=== PATIENT | female | born 1965 | race Caucasian/White ===

== ENCOUNTER 2016-11-25 19:32 | Inpatient (IN) | payer MEDICARE, OTHER ==
[2016-11-25 19:54] VITALS: BMI 31.1
--- NOTE | 2016-11-25 20:17 | PDOC ---
History of Present Illness <JermaineroderickMarnie - Last Filed: 11/25/16 20:45> - General History Source: Patient <Vijay Kemp - Last Filed: 11/25/16 20:55> - History of Present Illness Initial Comments: 11/25/16 20:56 The patient is a 50 year old female with a PMH of AFIB, HTN, hyperlipidemia, asthma, COPD, o2 dependent and uterine CA presents to the ED BIBA from [facility] s/p witness mechanical fall yesterday. The patient reports falling at 7:30pm yesterday during her therapy session and sustained injuries to her right hip. Patient now has complaints of right hip pain and right ankle pain. X-ray was done at the half-way which confirms a right hip fracture. Patient denies LOC, head trauma and back trauma. Patient denies chest pain, SOB, fever, chills, cough, abdominal pain, nausea, vomiting, diarrhea and urinary distress. PCP: Dr. Cornelio Salas <Gabriela Simmons - Last Filed: 11/26/16 02:08> - General Stated Complaint: DISPLACED FRACTURE Time Seen by Provider: 11/25/16 20:17 Past History <Amyluis fernandoMarcus vaughnta - Last Filed: 11/25/16 20:45> - Past Medical History Anemia: Yes Asthma: Yes (COPD) Cancer: Yes (UTERINE) Cardiac Disorders: Yes (A-fib) CVA: No COPD: Yes CHF: No Dementia: No Diabetes: Yes GI Disorders: Yes (colitis, SB resection,) Disorders: Yes (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) HTN: Yes Hypercholesterolemia: Yes Liver Disease: No Suicide Attempt (Hx): No Seizures: Yes (5 yrs ago had a seizure ( zofran and reglan given together as per patient) Thyroid Disease: No - Surgical History Abdominal Surgery: Yes (BOWEL RESECTION) Appendectomy: Yes (removed 1998) Cardiac Surgery: No Cholecystectomy: No Lung Surgery: No Neurologic Surgery: No Orthopedic Surgery: Yes (Back Sx T7,6) - Immunization History Td Vaccination: Yes TDAP Vaccination: Yes Immunization Up to Date: Yes - Psycho/Social/Smoking Cessation Hx Anxiety: No Suicidal Ideation: No Smoking Status: No Smoking History: Unknown if ever smoked Have you smoked in the past 12 months: No Number of Cigarettes Smoked Daily: 3 If you are a former smoker, when did you quit?: 10/11/14 Information on smoking cessation initiated: No 'Breaking Loose' booklet given: 03/12/15 Hx Alcohol Use: No Drug/Substance Use Hx: No Substance Use Type: None Hx Substance Use Treatment: No <OzzyVijay hernadez - Last Filed: 11/25/16 20:55> <GatohannahGabriela pineda - Last Filed: 11/26/16 02:08> - Past Medical History Allergies/Adverse Reactions: Allergies Allergy/AdvReac Type Severity Reaction Status Date / Time oxycodone [Oxycodone] Allergy Severe Nausea Verified 11/25/16 19:58 oxycodone HCl [From Percocet] Allergy Severe Nausea Verified 11/25/16 19:58 aspirin Allergy Mild Verified 11/25/16 19:58 blueberry [Blueberry] Allergy Mild Swelling Verified 11/25/16 19:58 promethazine HCl Allergy Mild Verified 11/25/16 19:58 [From Phenergan] promethazine Allergy Verified 11/25/16 19:58 Home Medications: Ambulatory Orders Acetaminophen [Tylenol .Regular Strength -] 650 mg PO Q6H PRN #0 tablet Levothyroxine [Synthroid -] 25 mcg PO DAILY@0700 tablet 06/05/16 Albuterol 2.5/Ipratropium 0.5 [Duoneb -] 1 amp NEB Q4HPO amp 09/17/16 Alprazolam [Xanax] 0.25 mg PO BID tablet MDD 2 09/17/16 Diltiazem [Cardizem -] 60 mg PO Q6HPO tablet 09/17/16 Magnesium Oxide [Mag-Ox -] 400 mg PO BID tablet 09/17/16 Naph,Mb-Db/K pH,Mbdb [PHOS-NaK PACKET -] 1 packet PO BID pow 09/17/16 Albuterol Sulfate Inhaler - [Ventolin HFA Inhaler -] 2 puff IH Q4H PRN #0 inhaler 09/23/16 Baclofen [Lioresal -] 20 mg PO TID 10/01/16 Docusate Sodium [Colace -] 300 mg PO HS 10/01/16 Budesonide/Formeterol Fumarate [SYMBICORT 160/4.5mcg -] 2 inh PO BID 11/01/16 Diphenhydramine [Benadryl 12.5 MG/5 ML Oral Solution -] 25 mg PO Q4H PRN Doxepin HCl [Sinequan -] 25 mg PO HS 11/01/16 Eletriptan Hydrobromide [Relpax -] 40 mg PO PRN 11/01/16 Gabapentin [Neurontin -] 300 mg PO TID 11/01/16 Metoprolol Tartrate [Lopressor -] 25 mg PO TID 11/01/16 Omeprazole 40 mg PO BID 11/01/16 Polyethylene Glycol 3350 [Miralax 119 gm Btl -] 17 gm PO DAILY 11/01/16 Roflumilast [Daliresp] 500 mcg PO DAILY 11/01/16 Sennosides [Senna] 2 tab PO HS 11/01/16 Zolpidem Tartrate [Ambien] 10 mg PO HS PRN MDD 1 11/01/16 Lipase/Protease/Amylase [Eamon Turner 6,000 Units Capsule] 3 cap PO TIDCM capsule. 11/07/16 Insulin Sliding Scale [Novolog Vial Sliding Scale -] 0 units SQ ACHS PRN Doxepin HCl [Sinequan -] 25 mg PO HS capsule 11/20/16 Hydromorphone [Dilaudid -] 2 mg PO Q8H PRN #0 tablet MDD 3 11/20/16 Lactobacillus Acidophilus [Bacid -] 1 tab PO BID tab 11/20/16 Loperamide HCl [Imodium -] 2 mg PO Q8H PRN #0 capsule 11/20/16 Metoclopramide HCl [Reglan -] 10 mg PO TIDAC tablet 11/20/16 Multivitamins [Multivit ([facility] Formulary)] 1 tab PO DAILY tab 11/20/16 Ondansetron [Zofran -] 4 mg PO Q4H PRN #0 tablet 11/20/16 Prednisone [Deltasone -] 60 mg PO DAILY #20 tablet 11/20/16 Zinc Oxide 1 applic TP BID tube 11/20/16 Zolpidem Tartrate [Ambien] 10 mg PO HS PRN #0 tablet MDD 1 11/20/16 Insulin (Levemir) [Levemir Vial] 5 unit SQ DAILY #1 vial 11/21/16 Review of Systems - Review of Systems Able to Perform ROS?: Yes Comments:: 11/25/16 20:44 CONSTITUTIONAL: Absent: fever, chills, diaphoresis, generalized weakness, malaise, loss of appetite HEENT: Absent: rhinorrhea, nasal congestion, throat pain, throat swelling, difficulty swallowing, mouth swelling, ear pain, eye pain, visual Changes CARDIOVASCULAR: Absent: chest pain, syncope, palpitations, irregular heart rate, lightheadedness , peripheral edema RESPIRATORY: Absent: cough, shortness of breath, dyspnea with exertion, orthopnea, wheezing, stridor, hemoptysis GASTROINTESTINAL: Absent: abdominal pain, abdominal distension, nausea, vomiting, diarrhea, constipation, melena, hematochezia GENITOURINARY: Absent: dysuria, frequency, urgency, hesitancy, hematuria, flank pain, genital pain MUSCULOSKELETAL: +Right hip pain SKIN: Absent: rash, itching, pallor NEUROLOGIC: Absent: headache, focal weakness or paresthesias, dizziness, unsteady gait, seizure, mental status changes, bladder or bowel incontinence PSYCHIATRIC: Absent: anxiety, depression, suicidal or homicidal ideation, hallucinations. <Gabriela Simmons - Last Filed: 11/26/16 02:08> *Physical Exam - Vital Signs Last Vital Signs Temp Pulse Resp BP Pulse Ox 98.7 F 75 17 102/68 99 11/25/16 19:48 11/25/16 19:48 11/25/16 19:48 11/25/16 19:48 11/25/16 19:48 <Marnie Dey - Last Filed: 11/25/16 20:45> - Vital Signs Last Vital Signs Temp Pulse Resp BP Pulse Ox 98.7 F 75 17 102/68 99 11/25/16 19:48 11/25/16 19:48 11/25/16 19:48 11/25/16 19:48 11/25/16 19:48 <Vijay Kemp - Last Filed: 11/25/16 20:55> - Vital Signs Last Vital Signs Temp Pulse Resp BP Pulse Ox 98.7 F 75 17 102/68 99 11/25/16 19:48 11/25/16 19:48 11/25/16 19:48 11/25/16 19:48 11/25/16 19:48 - Physical Exam Comments: 11/25/16 20:44 GENERAL: Well developed, well nourished. Awake and alert. Moderate distress. HEENT: Trachyostomy in place, intact clean and dry. Normocephalic, atraumatic. PERRLA, EOMI. No raccoon or palmer sign. No conjunctival pallor. Sclera are non- icteric. Moist mucous membranes. Oropharynx is clear. No hemotympanum. NECK: Supple. Full ROM. No JVD. Carotid pulses 2+ and symmetric, without bruits. No thyromegaly. No lymphadenopathy. CARDIOVASCULAR: Regular rate and rhythm. No murmurs, rubs, or gallops. Distal pulses are 2+ and symmetric. PULMONARY: No evidence of respiratory distress. Lungs clear to auscultation bilaterally. No wheezing, rales or rhonchi. ABDOMINAL: Soft. Non-tender. Non-distended. No rebound or guarding. No organomegaly. Normoactive bowel sounds. MUSCULOSKELETAL Right leg is shortened, and externally rotated. Moderate tenderness on palpation of right hip. EXTREMITIES: No cyanosis. No clubbing. No edema. No calf tenderness. SKIN: Warm and dry. Normal capillary refill. No rashes. No jaundice. NEUROLOGICAL: Alert, awake, appropriate. Cranial nerves 2-12 intact. No ROM secondary to pain of right leg. PSYCHIATRIC: Cooperative. Good eye contact. Appropriate mood and affect <Gabriela Simmons - Last Filed: 11/26/16 02:08> Heart Score/ECG Review - ECG Impressions Comment:: 11/26/16 00:42 NSR @ 77 bpm Normal ECG <Gabriela Simmons - Last Filed: 11/26/16 02:08> ED Treatment Course - LABORATORY CBC & Chemistry Diagram: 11/25/16 21:15 11/25/16 21:15 <Gabriela Simmons - Last Filed: 11/26/16 02:08> Medical Decision Making - Medical Decision Making 11/25/16 20:[address] Cornelio Salas (via answering service) at 20:32 Dr. Salas responded at 20:29 and case was discussed. <Marnie Dey - Last Filed: 11/25/16 20:45> - Medical Decision Making 11/25/16 20:55 Dr. Kemp: The scribe's documentation has been prepared under my direction and personally reviewed by me in its entirery. I confirm that the note above accurately reflects all work, treatment, procedures, and medical decision making performed by me. Patient with right hip fracture will be admit <Vijay Kemp - Last Filed: 11/25/16 20:55> *DC/Admit/Observation/Transfer <Marnie Dey - Last Filed: 11/25/16 20:45> - Discharge Dispostion Admit: Yes <Vijay Kemp - Last Filed: 11/25/16 20:55> - Attestations Scribe Attestion: 11/25/16 20:45 Documentation prepared by Gabriela Simmons, acting as medical laboratory assistant for Vijay Kemp MD/DO. <Gabriela Simmons - Last Filed: 11/26/16 02:08> Diagnosis at time of Disposition: Closed right hip fracture Qualifiers: Encounter type: initial encounter Qualified Code(s): S72.001A - Fracture of unspecified part of neck of right femur, initial encounter for closed fracture - Referrals
[2016-11-25] MEDS ORDERED: HYDROmorphone HCL CARPU-JECT 1 MG/1 ML DISP.SYRIN IVPUSH ONE ×2 (20:21→23:18)
[2016-11-25] MEDS ORDERED: ONDANSETRON 4 MG/2 ML VIAL IVPUSH STA (20:22)
[2016-11-25] MEDS ORDERED: ONDANSETRON 4 MG/2 ML VIAL ONE (20:50)
[2016-11-25] MEDS ORDERED: HYDROmorphone HCL CARPU-JECT 1 MG/1 ML DISP.SYRIN ONE (20:50)
[2016-11-25 21:29] LABS: MCH 25.9 pg (25.7-33.7); MCHC 30.9 g/dl (32.0-36.0); MEAN CELL VOLUME 83.8 fl (80-96); MEAN PLT VOLUME 8.5 fl (7.5-11.1); PLATELET COUNT 383 K/MM3 (134-434); RDW 17.9 % (11.6-15.6); WHITE BLOOD COUNT 15.9 K/mm3 (4.0-10.0)
[2016-11-25 21:49] LABS: INR 0.96 (0.82-1.09); PROTHROMBIN TIME (PATIENT) 10.5 SEC (9.98-11.88)
[2016-11-25] MEDS: SODIUM CHLORIDE 1,000 ML IV SCH (21:54)
[2016-11-25 21:57] LABS: ALBUMIN 2.8 g/dl (3.4-5.0); ALK PHOS 83 U/L (45-117); ANION GAP 9 (8-16); BILIRUBIN,TOTAL 0.1 mg/dL (0.2-1.0); CALCIUM 7.6 mg/dL (8.5-10.1); CO2 27 mmol/L (21-32); CREATININE 0.8 mg/dL (0.55-1.02); GLUCOSE,RANDOM 156 mg/dL (74-106); SGOT/AST 14 U/L (15-37); SGPT/ALT 36 U/L (12-78); TOT PROT 6.1 g/dl (6.4-8.2)
[2016-11-25 22:22] LABS: METAMYELOCYTE 1 % (0-2); OVALOCYTES FEW; PLATELET COMMENT2 NO CLOTTING DETECTED; PLATELET ESTIMATE ADEQUATE (NORMAL)
[2016-11-25 22:23] LABS: ANISOCYTOSIS 1+; HYPOCHROMIA 1+; POLYCHROMASIA FEW
[2016-11-26] MEDS ORDERED: HYDROmorphone HCL CARPU-JECT 1 MG/1 ML DISP.SYRIN ONE ×5 (00:23→19:32)
[2016-11-26] MEDS ORDERED: HYDROmorphone HCL CARPU-JECT 1 MG/1 ML DISP.SYRIN IVPUSH ONE (01:05)
[2016-11-26 01:10] LABS: URINE APPEARANCE CLOUDY; URINE BILIRUBIN NEGATIVE (NEGATIVE); URINE COLOR DKYELLOW; URINE GLUCOSE (UA) NEGATIVE (NEGATIVE); URINE KETONE NEGATIVE (NEGATIVE); URINE NITRITE POSITIVE (NEGATIVE); URINE UROBILINOGEN NEGATIVE E.U./dl (0.2-1.0)
[2016-11-26] MEDS ORDERED: HYDROmorphone HCL CARPU-JECT 2 MG/1 ML DISP.SYRIN ONE (01:13)
[2016-11-26 02:03] LABS: URINE BLOOD 1+ (NEGATIVE); URINE LEUK ESTERASE 3+ (NEGATIVE); URINE PROTEIN 1+ (NEGATIVE)
[2016-11-26] MEDS ORDERED: BACLOFEN 10 MG TABLET (FP) PO ONE (02:06)
[2016-11-26] MEDS ORDERED: DOXEPIN HCL 25 MG CAPSULE PO ONE (02:32)
[2016-11-26 02:35] LABS: URINE BACTERIA MANY /hpf (NONE SEEN); URINE RBC 228 /hpf (0-3); URINE WBC 892 /hpf (3-5)
[2016-11-26] MEDS ORDERED: ACETAMINOPHEN 325 MG TABLET (FP) PO PRN (03:01)
[2016-11-26] MEDS ORDERED: ELETRIPTAN HYDROBROMIDE 40 MG TABLET PO PRN (03:01)
[2016-11-26] MEDS ORDERED: ONDANSETRON 4 MG TABLET PO PRN (03:01)
--- NOTE | 2016-11-26 03:01 | HP ---
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 She was found to have right lateral and medial malleolar fracture. On exam, pt with c/o ankle pain as well as concerned about her nighttime medications that she missed. 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 colitis bipolar depression PAST SURGICAL HISTORY: T6&T7 metastatic tumor resection tracheostomy Social History: Smoking: pt denies Alcohol: pt denies Drugs: pt denies Family History: mother with heart disease/heart surgery father: leukemia Allergies oxycodone [Oxycodone] Allergy (Severe, Verified 11/25/16 19:58) Nausea oxycodone HCl [From Percocet] Allergy (Severe, Verified 11/25/16 19:58) Nausea aspirin Allergy (Mild, Verified 11/25/16 19:58) blueberry [Blueberry] Allergy (Mild, Verified 11/25/16 19:58) Swelling promethazine HCl [From Phenergan] Allergy (Mild, Verified 11/25/16 19:58) promethazine Allergy (Verified 11/25/16 19:58) HOME MEDICATIONS: 3 Medication Instructions Recorded Acetaminophen [Tylenol .Regular 650 mg PO Q6H PRN #0 tablet 06/05/16 Strength -] Levothyroxine [Synthroid -] 25 mcg PO DAILY@0700 tablet 06/05/16 Albuterol 2.5/Ipratropium 0.5 1 amp NEB Q4HPO amp 09/17/16 [Duoneb -] Alprazolam [Xanax] 0.25 mg PO BID tablet MDD 2 09/17/16 Diltiazem [Cardizem -] 60 mg PO Q6HPO tablet 09/17/16 Magnesium Oxide [Mag-Ox -] 400 mg PO BID tablet 09/17/16 Naph,Mb-Db/K pH,Mbdb [PHOS-NaK 1 packet PO BID pow 09/17/16 PACKET -] Albuterol Sulfate Inhaler - 2 puff IH Q4H PRN #0 inhaler 09/23/16 [Ventolin HFA Inhaler -] Baclofen [Lioresal -] 20 mg PO TID 10/01/16 Docusate Sodium [Colace -] 300 mg PO HS 10/01/16 Budesonide/Formeterol Fumarate 2 inh PO BID 11/01/16 [SYMBICORT 160/4.5mcg -] Diphenhydramine [Benadryl 12.5 25 mg PO Q4H PRN 11/01/16 MG/5 ML Oral Solution -] Doxepin HCl [Sinequan -] 25 mg PO HS 11/01/16 Eletriptan Hydrobromide [Relpax -] 40 mg PO PRN 11/01/16 Gabapentin [Neurontin -] 300 mg PO TID 11/01/16 Metoprolol Tartrate [Lopressor -] 25 mg PO TID 11/01/16 Omeprazole 40 mg PO BID 11/01/16 Polyethylene Glycol 3350 [Miralax 17 gm PO DAILY 11/01/16 119 gm Btl -] Roflumilast [Daliresp] 500 mcg PO DAILY 11/01/16 Sennosides [Senna] 2 tab PO HS 11/01/16 Zolpidem Tartrate [Ambien] 10 mg PO HS PRN MDD 1 11/01/16 Lipase/Protease/Amylase [Creon Dr 3 cap PO TIDCM capsule. 11/07/16 6,000 Units Capsule] Insulin Sliding Scale [Novolog 0 units SQ ACHS PRN 11/08/16 Vial Sliding Scale -] Doxepin HCl [Sinequan -] 25 mg PO HS capsule 11/20/16 Hydromorphone [Dilaudid -] 2 mg PO Q8H PRN #0 tablet MDD 3 11/20/16 Lactobacillus Acidophilus [Bacid -] 1 tab PO BID tab 11/20/16 Loperamide HCl [Imodium -] 2 mg PO Q8H PRN #0 capsule 11/20/16 Metoclopramide HCl [Reglan -] 10 mg PO TIDAC tablet 11/20/16 Multivitamins [Multivit ([facility] 1 tab PO DAILY tab 11/20/16 Formulary)] Ondansetron [Zofran -] 4 mg PO Q4H PRN #0 tablet 11/20/16 Prednisone [Deltasone -] 60 mg PO DAILY #20 tablet 11/20/16 Zinc Oxide 1 applic TP BID tube 11/20/16 Zolpidem Tartrate [Ambien] 10 mg PO HS PRN #0 tablet MDD 1 11/20/16 Insulin (Levemir) [Levemir Vial] 5 unit SQ DAILY #1 vial 11/21/16 REVIEW OF SYSTEMS CONSTITUTIONAL: Absent: fever, chills, diaphoresis, generalized weakness, malaise, loss of appetite, weight change HEENT: Absent: rhinorrhea, nasal congestion, throat pain, throat swelling, difficulty swallowing, mouth swelling, ear pain, eye pain, visual changes CARDIOVASCULAR: Absent: chest pain, syncope, palpitations, irregular heart rate, lightheadedness , peripheral edema RESPIRATORY: Absent: cough, shortness of breath, dyspnea with exertion, orthopnea, wheezing, stridor, hemoptysis GASTROINTESTINAL: Absent: abdominal pain, abdominal distension, nausea, vomiting, diarrhea, constipation, melena, hematochezia GENITOURINARY: Absent: dysuria, frequency, urgency, hesitancy, hematuria, flank pain, genital pain MUSCULOSKELETAL: Present: right ankle pain Absent: myalgia, arthralgia, joint swelling, back pain, neck pain SKIN: Absent: rash, itching, pallor HEMATOLOGIC/IMMUNOLOGIC: Absent: easy bleeding, easy bruising, lymphadenopathy, frequent infections ENDOCRINE: Absent: unexplained weight gain, unexplained weight loss, heat intolerance, cold intolerance NEUROLOGIC: Absent: headache, focal weakness or paresthesias, dizziness, unsteady gait, seizure, mental status changes, bladder or bowel incontinence PSYCHIATRIC: Absent: anxiety, depression, suicidal or homicidal ideation, hallucinations. PHYSICAL EXAMINATION Vital Signs - 24 hr 3 11/25/16 11/26/16 11/26/16 19:48 03:23 03:46 Temperature 98.7 F Pulse Rate 75 Pulse Rate [ 65 89 Left] Respiratory 17 17 18 Rate Blood Pressure 102/68 Blood Pressure 104/77 110/66 [Left Arm] O2 Sat by Pulse 99 99 99 Oximetry (%) GENERAL: Awake, alert, and fully oriented, in no acute distress. HEAD: Normal with no signs of trauma. EYES: Pupils equal, round and reactive to light, extraocular movements intact, sclera anicteric, conjunctiva clear. No lid lag. EARS, NOSE, THROAT: Ears normal, nares patent, oropharynx clear without exudates. Moist mucous membranes. NECK: Normal range of motion, supple without lymphadenopathy, JVD, or masses. LUNGS: Breath sounds equal, clear to auscultation bilaterally. No wheezes, and no crackles. No accessory muscle use. HEART: Regular rate and rhythm, normal S1 and S2 without murmur, rub or gallop. ABDOMEN: Soft, nontender, not distended, normoactive bowel sounds, no guarding, no rebound, no masses. No hepatomegaly or splenomegaly. MUSCULOSKELETAL: Normal range of motion at all joints. No bony deformities or tenderness. No CVA tenderness. UPPER EXTREMITIES: 2+ pulses, warm, well-perfused. No cyanosis. No clubbing. Cap refill <2 seconds. No peripheral edema. LOWER EXTREMITIES: 2+ pulses, warm, well-perfused. No calf tenderness. No peripheral edema. right leg in splint, toes pink, good cap refill, minimal edema NEUROLOGICAL: Cranial nerves II-XII intact. Normal speech. Normal gait. PSYCHIATRIC: Cooperative. Good eye contact. Appropriate mood and affect. SKIN: Warm, dry, normal turgor, no rashes or lesions noted. Laboratory Results - last 24 hr 3 11/25/16 11/25/16 11/25/16 00:35 21:15 21:15 WBC 15.9 H D RBC 3.70 D Hgb 9.6 L D Hct 31.0 L D MCV 83.8 MCHC 30.9 L RDW 17.9 H Plt Count 383 D MPV 8.5 Neutrophils % 79.0 Lymphocytes % 10.0 D Monocytes % 8.0 Eosinophils % 1.0 Metamyelocytes 1 Myelocytes 1 D Platelet Estimate Adequate Platelet Comment No clotting detected Polychromasia Few Hypochromic-Microcytic 1+ Anisocytosis 1+ Ovalocytes Few INR 0.96 Sodium Potassium Chloride Carbon Dioxide Anion Gap BUN Creatinine Creat Clearance w eGFR Random Glucose Lactic Acid Calcium Total Bilirubin AST ALT Alkaline Phosphatase Total Protein Albumin Urine Color Dkyellow Urine Appearance Cloudy Urine pH 6.0 Ur Specific Atkinson 1.019 Urine Protein 1+ H Urine Glucose (UA) Negative Urine Ketones Negative Urine Blood 1+ H Urine Nitrite Positive Urine Bilirubin Negative Urine Urobilinogen Negative Ur Leukocyte Esterase 3+ H Urine RBC 228 Urine WBC 892 Ur Epithelial Cells Many Urine Bacteria Many Blood Type Antibody Screen 3 11/25/16 11/25/16 11/25/16 21:15 21:15 21:15 WBC RBC Hgb Hct MCV MCHC RDW Plt Count MPV Neutrophils % Lymphocytes % Monocytes % Eosinophils % Metamyelocytes Myelocytes Platelet Estimate Platelet Comment Polychromasia Hypochromic-Microcytic Anisocytosis Ovalocytes INR Sodium 140 Potassium 3.5 Chloride 104 Carbon Dioxide 27 Anion Gap 9 BUN 19 H D Creatinine 0.8 Creat Clearance w eGFR > 60 Random Glucose 156 H D Lactic Acid 1.592 Calcium 7.6 L Total Bilirubin 0.1 L D AST 14 L D ALT 36 D Alkaline Phosphatase 83 Total Protein 6.1 L Albumin 2.8 L Urine Color Urine Appearance Urine pH Ur Specific Atkinson Urine Protein Urine Glucose (UA) Urine Ketones Urine Blood Urine Nitrite Urine Bilirubin Urine Urobilinogen Ur Leukocyte Esterase Urine RBC Urine WBC Ur Epithelial Cells Urine Bacteria Blood Type A POSITIVE Antibody Screen Negative ASSESSMENT/PLAN: 50yF with PMH of Afib, DM, HTN, HLD, COPD-oxygen dependent, 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 She is being admitted for bimalleolar fracture. Bimalleolar fracture - right ankle immobilized in ED. - ortho consult leukocytosis/UTI - u/a c/w UTI - previous urine resistant to cephalosporins and penicillins, I to levaquin. will start Invanz 1g QD - ID consult Atrial fibrillation - not on AC, now in Sinus rhythm. - cont current meds, cont cardizem, lopressor HTN - BP stable, cont current meds COPD-oxygen dependent - recent hospitalization with COPD exac, still on steroid taper. Cont same. - cont home meds DVT PPX - heparin 5000 units TID FEN - po fluids - BMP ok, repeat tomorrow - diabetic/low sodium diet Dispo: pt currently requires inpatient care. Visit type - Emergency Visit Emergency Visit: Yes ED Registration Date: 11/25/16 Care time: The patient presented to the Emergency Department on the above date and was hospitalized for further evaluation of their emergent condition. - New Patient This patient is new to me today: Yes Date on this admission: 11/25/16 - Critical Care Critical Care patient: No
[2016-11-26] MEDS ORDERED: FERROUS SO4 325 MG TABLET (FP) PO ONE (03:13)
[2016-11-26] MEDS ORDERED: GABAPENTIN 100 MG CAPSULE (FP) ONE (06:36)
[2016-11-26] MEDS ORDERED: dilTIAZem HCL 60 MG TABLET (FP) ONE (06:38)
[2016-11-26] MEDS ORDERED: HEPARIN NA (PORCINE) 5,000 UNITS/ML 1ML VIAL ONE ×2 (06:39→06:40)
[2016-11-26] MEDS ORDERED: FERROUS SO4 325 MG TABLET (FP) ONE (06:39)
[2016-11-26] MEDS ORDERED: BACLOFEN 10 MG TABLET (FP) ONE (06:39)
[2016-11-26] MEDS ORDERED: METOPROLOL TARTRATE 25 MG TABLET (FP) ONE (06:39)
[2016-11-26] MEDS: METOPROLOL TARTRATE 25 MG TABLET (FP) PO SCH ×3 (06:48→22:17)
[2016-11-26] MEDS: GABAPENTIN 300 MG CAPSULE (FP) PO SCH ×3 (06:48→22:18)
[2016-11-26] MEDS: BACLOFEN 10 MG TABLET (FP) PO SCH ×3 (06:48→22:17)
[2016-11-26] MEDS: dilTIAZem HCL 60 MG TABLET (FP) PO SCH ×3 (06:48→21:50)
[2016-11-26] MEDS: HEPARIN NA (PORCINE) 5,000 UNITS/ML 1ML VIAL SQ SCH ×3 (06:48→22:17)
[2016-11-26] MEDS: ALBUTEROL SO4 2.5/IPRATROPIUM 0.5 INH SOL 3 ML VIAL.NEB. NEB PRN ×3 (06:49→18:46)
[2016-11-26] MEDS: HYDROmorphone HCL CARPU-JECT 1 MG/1 ML DISP.SYRIN IVPB PRN ×4 (06:49→19:39)
[2016-11-26] MEDS ORDERED: ALBUTEROL SO4 2.5/IPRATROPIUM 0.5 INH SOL 3 ML VIAL.NEB. NEB ONE ×2 (07:28→14:28)
[2016-11-26] MEDS: INSULIN SLIDING SCALE (NOVOLOG) 1 VIAL SQ SCH ×4 (07:30→23:16)
[2016-11-26] MEDS: INSULIN DETEMIR 100 UNITS/ML MDV SQ SCH ×2 (07:30→18:42)
[2016-11-26] MEDS ORDERED: PATIENT'S OWN MEDICATION (NON-FORMULARY) (Omeprazole 40 MG) PO SCH (10:00)
[2016-11-26] MEDS ORDERED: LEVOTHYROXINE NA 25 MCG TABLET (FP) ONE (10:57)
[2016-11-26] MEDS: LEVOTHYROXINE NA 25 MCG TABLET (FP) PO SCH (11:00)
[2016-11-26] MEDS: MAGNESIUM OXIDE 400 MG TABLET (FP) PO SCH ×2 (11:45→22:18)
[2016-11-26] MEDS: PANTOPRAZOLE 40 MG TABLET (FP) PO SCH ×2 (11:45→22:18)
[2016-11-26] MEDS: MULTIVITAMINS (DAILY MVI) TABLET (FP) PO SCH (11:45)
[2016-11-26] MEDS: CHOLECALCIFEROL (VITAMIN D3) 1,000 UNIT TABLET (FP) PO SCH (11:45)
[2016-11-26] MEDS: ROFLUMILAST 500 MCG TABLET PO SCH (11:45)
[2016-11-26] MEDS: ALPRAZolam 0.25 MG TABLET PO SCH ×2 (11:45→22:54)
[2016-11-26] MEDS: predniSONE 20 MG TABLET (UD) PO SCH (11:45)
[2016-11-26] MEDS: LIPASE/PROTEASE/AMYLASE 6,000 UNIT CAPSULE PO SCH ×3 (12:00→21:50)
[2016-11-26] MEDS: NAPH,MB-DB/K PH,MBDB POWDER PACKET PO SCH (12:03)
--- NOTE | 2016-11-26 13:46 | PN ---
Physical Exam: SUBJECTIVE: Patient seen and examined Pt complained of pain in right foot with movement Pt was being examined by the surgical [employer] Kayleigh who placed a soft cast on the lower ext Pt denies fever, chills, sob, n/v, wheezes, cough, no abdominal pain OBJECTIVE: Vital Signs Period Temp Pulse Resp BP Sys/Dan Pulse Ox Last 24 Hr 65-92 17-19 102-110/64-77 99-100 GENERAL: The patient is awake, alert, and fully oriented, in no acute distress. HEAD: Normal with no signs of trauma. EYES: PERRL, extraocular movements intact, sclera anicteric, conjunctiva clear. No ptosis. ENT: Ears normal, nares patent, oropharynx clear without exudates, moist mucous membranes. NECK: Trachea midline, full range of motion, supple. trach collar LUNGS: minimal exp wheezes to auscultation bilaterally, no crackles, no accessory muscle use. HEART: Regular rate and rhythm, S1, S2 without murmur, rub or gallop. ABDOMEN: Soft, diffuse tenderness, nondistended, normoactive bowel sounds, no guarding, no rebound, no hepatosplenomegaly, no masses. EXTREMITIES: 2+ pulses, warm, well-perfused, no edema in left lower ext. right lower ext with short leg splint, Good capillary refill in right toes less than 2 sec, able to moves right foot toes, normal sensation in right lower ext, no color to right toes. tenderness with movement of right foot. NEUROLOGICAL: . Normal speech, gait not observed. PSYCH: Normal mood, normal affect. SKIN: Warm, dry, normal turgor, no rashes or lesions noted Laboratory Results - last 24 hr 11/26/16 12:47 POC Glucometer [id number] Active Medications Generic Name Dose Route Start Last Admin Trade Name Freq PRN Reason Stop Dose Admin Acetaminophen 650 mg 11/26/16 03:01 Tylenol - PO Q6H PRN PAIN Albuterol/Ipratropium 1 amp 11/26/16 03:15 11/26/16 06:49 Duoneb - NEB 1 amp Q4H PRN Administration Alprazolam 0.25 mg 11/26/16 10:00 11/26/16 11:45 Xanax - PO 0.25 mg BID EMMY Administration Baclofen 20 mg 11/26/16 06:00 11/26/16 06:48 Lioresal - PO 20 mg TID [facility] Administration Budesonide/Formoterol Fumarate 2 puff 11/26/16 10:00 Symbicort 160/4.5mcg - IH BID EMMY Cholecalciferol 2,000 unit 11/26/16 10:00 11/26/16 11:45 Vitamin D3 - PO 2,000 unit DAILY EMMY Administration Diltiazem HCl 60 mg 11/26/16 06:00 11/26/16 06:48 Cardizem - PO 60 mg Q6HPO [facility] Administration Docusate Sodium 300 mg 11/26/16 22:00 Colace - PO HS [facility] Doxepin HCl 25 mg 11/26/16 22:00 Sinequan - PO HS EMMY Eletriptan 40 mg 11/26/16 03:01 Relpax - PO DAILY PRN [place] Gabapentin 300 mg 11/26/16 06:00 11/26/16 06:48 Neurontin - PO 300 mg TID [facility] Administration Heparin Sodium (Porcine) 5,000 unit 11/26/16 06:00 11/26/16 06:48 Heparin - SQ 5,000 unit TID [facility] Administration Hydromorphone HCl 1 mg 11/26/16 03:20 11/26/16 11:00 Dilaudid Injection - IVPB 1 mg Q4H PRN Administration PAIN Sodium Chloride 1,000 mls @ 125 mls/hr 11/25/16 20:30 11/25/16 21:54 Normal Saline - IV 125 mls/hr ASDIR [facility] Administration Insulin Aspart 1 vial 11/26/16 07:00 Novolog Vial Sliding Scale - SQ ACHS [facility] Protocol Insulin Detemir 5 units 11/26/16 07:00 Levemir Vial SQ BIDI [facility] Levothyroxine Sodium 25 mcg 11/26/16 07:00 11/26/16 11:00 Synthroid - PO 25 mcg DAILY@0700 [facility] Administration Magnesium Oxide 400 mg 11/26/16 10:00 11/26/16 11:45 Mag-Ox - PO 400 mg BID [facility] Administration Metoprolol Tartrate 25 mg 11/26/16 06:00 11/26/16 06:48 Lopressor - PO 25 mg TID [facility] Administration Multivitamins/Minerals/Vitamin C 1 tab 11/26/16 10:00 11/26/16 11:45 Tab-A-Vit - PO 1 tab DAILY [facility]MM[facility] Administration Ondansetron HCl 4 mg 11/26/16 03:01 Zofran - PO Q4H PRN NAUSEA Pancrelipase 3 cap 11/26/16 08:00 11/26/16 12:00 Eamon Turner 6,000 Units Capsule PO 3 cap TIDCM [facility] Administration Pantoprazole Sodium 40 mg 11/26/16 10:00 11/26/16 11:45 Protonix - PO 40 mg BID [facility] Administration Polyethylene Glycol 17 gm 11/26/16 10:00 Miralax (For Daily Use) - PO DAILY EMM[facility] Potassium Phos/Sodium Phos 1 packet 11/26/16 10:00 11/26/16 12:03 Phos-Nak Packet - PO Not Given DAILY EMMY Prednisone 30 mg 11/28/16 10:00 Deltasone - PO 12/01/16 09:59 DAILY EMMY Prednisone 10 mg 12/04/16 10:00 Deltasone - PO 12/07/16 09:59 DAILY EMMY Prednisone 40 mg 11/26/16 10:00 11/26/16 11:45 Deltasone - PO 11/28/16 09:59 40 mg DAILY [facility] Administration Prednisone 20 mg 12/01/16 10:00 Deltasone - PO 12/04/16 09:59 DAILY EMMY Roflumilast 500 mcg 11/26/16 10:00 11/26/16 11:45 Daliresp - PO 500 mcg DAILY [facility] Administration Senna 2 tab 11/26/16 22:00 Senna - PO HS EMMY CBC, BMP 11/25/16 21:15 11/25/16 21:15 Laboratory Tests 11/25/16 11/25/16 11/25/16 00:35 21:15 21:15 INR 0.96 Lactic Acid Calcium 7.6 L AST 14 L D ALT 36 D Alkaline Phosphatase 83 Albumin 2.8 L Urine Protein 1+ H Urine Blood 1+ H Urine Nitrite Positive Ur Leukocyte Esterase 3+ H Urine RBC 228 Urine WBC 892 Ur Epithelial Cells Many Urine Bacteria Many 11/25/16 21:15 INR Lactic Acid 1.592 Calcium AST ALT Alkaline Phosphatase Albumin Urine Protein Urine Blood Urine Nitrite Ur Leukocyte Esterase Urine RBC Urine WBC Ur Epithelial Cells Urine Bacteria Xray hip and Pelvis 11/25/15: Suboptimal examination due to osteopenia and likely due to the patient's body habitus without gross evidence of a fracture or dislocation. Correlate clinically for further evaluation. CXR 11/25/15: Since prior chest x-ray dated 11/01/2016, and allowing for the difference in technique, the cardiac silhouette remains borderline in size. There are increased interstitial lung markings, bilaterally likely due to technique. No focal infiltrates are identified. Extensive hardware again noted in the thoracic spine. Tracheostomy tube is in satisfactory position Xray Right Ankle: Slightly displaced medial and lateral malleolar fracture. Severe osteopenia. ASSESSMENT/PLAN: 50 year old female from of [facility], with pmh PAF, HTN, diabetes, COPD, asthma, tracheostomy, uterine cancer, anxiety, depression, bipolar disorder, abdominal abscess presented to ED s/p fall while in rehab. Pt was found to have a right malleolar fracture on xray foot. Right lateral and medial malleolar fracture Pt was seen by Kayleigh [employer] Short leg splint placed to right lower ext placed Ortho Follow up with Dr Castorena in 10-14 days in their office Non weight bearing to right lower ext Ice, rest and elevate the ankle as needed Dilaudid 1mg q4h prn for pain Vitamin D UTI vs urinary colonization Pt has 3+ leuk est, + nitrite, urine wbc lactic acid 1.5, wbc 15.9 WBC could be elevated because of Steroid use pending urine culture Blood culture ordered consider repeating UA Dr Williamson consulted for ID give one dose of zosyn IV Pt have h/o urine pseudomonas and enterobacter aerogenes in the last 2 months COPD with chronic hypoxic failure pt w improving exp wheezes Pulmonary on case On trach collar keep O2 sat >88% Continue Daliresp on Prednisone taper currently at 40mg po daily for 3 day, Then will decrease to 30mg daily for 3 days. then 20mg qd for 3 days, then 10mg qd for 3 days then dc Continue bronchodilators Anxiety disorder/ Depression continue Xanax Continue Sinequan Hypothryoidism continue synthroid DM2 Novolog sliding scale levemir 5 u Sq BID PAF currently in Sinus rhythm on cardizem Po On lopressor Po HTN on cardizem Po On lopressor Po Hyperlipidemia consider statins FEN Fluid: None Electrolytes: no abnormalities Nutrition: Diabetic diet Prophylaxis DVT: SCD, heparin SQ Deconditionning : PT BID Disposition: Keep in medsurg until evaluation by ID Visit type - Emergency Visit Emergency Visit: Yes ED Registration Date: 11/25/16 Care time: The patient presented to the Emergency Department on the above date and was hospitalized for further evaluation of their emergent condition. - New Patient This patient is new to me today: Yes Date on this admission: 11/26/16 - Critical Care Critical Care patient: No
--- NOTE | 2016-11-26 14:04 | CONSULT ---
Consult Consult Specialty:: Orthopedics Reason for Consultation:: Right ankle fracture - History of Present Illness Chief Complaint: Right ankle pain History of Present Illness: 50 y/o female with a PMH of Afib, DM, HTN, HLD, COPD-oxygen dependent, uterine CA with mets to spine, colitis, bipolar depression, tracheostomy presents for evaluation of right ankle pain. The patient states that she lives in a rehab facility and is 90% wheelchair bound. She states that while at PT in the rehab facility she was trying to take a step when she slipped and fell backwards. She states the physical therapist was able to catch her upper body to prevent her head from hitting the ground. She did however twist the right ankle. She states that since the fall she has been having persistent medial and lateral right ankle pain. She has been unable to bear weight secondary to the pain. Denies numbness/tingling. The patient states she initially had some mild lateral right hip pain that has since resolved. No hip pain at this time. The patient is s/p a L hip ORIF 2 years ago. No other previous orthopedic surgery. - History Source History Provided By: Patient Limitations to Obtaining History: No Limitations - Past Medical History Cardio/Vascular: Yes: AFIB (Paroxysmal), HTN, Hyperlipdemia Pulmonary: Yes: Asthma, COPD, O2 Dependent Renal/: Yes: Cancer (Uterine), Other ([place] in the past) Infectious Disease: Yes: C-Diff (june 2014), Other (Osteomyelitis of thoracic spine) Psych: Yes: Anxiety, Bipolar, Depression Musculoskeletal: Yes: Chronic low back pain Additional Medical History: Frequent c/o abdominal pain-extensive w/u in the past negative. Presumed adhesions from prior surgeries. - Past Surgical History Past Surgical History: Yes: Hysterectomy (with BSO) - Alcohol/Substance Use Hx Alcohol Use: No - Smoking History Smoking history: Unknown if ever smoked Have you smoked in the past 12 months: No Aproximately how many cigarettes per day: 3 If you are a former smoker, when did you quit?: 10/11/14 - Social History Usual Living Arrangement: With Significant Other 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) History of Recent Travel: No Home Medications - Allergies Allergies/Adverse Reactions: Allergies Allergy/AdvReac Type Severity Reaction Status Date / Time oxycodone [Oxycodone] Allergy Severe Nausea Verified 11/25/16 19:58 oxycodone HCl [From Percocet] Allergy Severe Nausea Verified 11/25/16 19:58 aspirin Allergy Mild Verified 11/25/16 19:58 blueberry [Blueberry] Allergy Mild Swelling Verified 11/25/16 19:58 promethazine HCl Allergy Mild Verified 11/25/16 19:58 [From Phenergan] promethazine Allergy Verified 11/25/16 19:58 - Home Medications Home Medications: Ambulatory Orders Acetaminophen [Tylenol .Regular Strength -] 650 mg PO Q6H PRN #0 tablet Levothyroxine [Synthroid -] 25 mcg PO DAILY@0700 tablet 06/05/16 Albuterol 2.5/Ipratropium 0.5 [Duoneb -] 1 amp NEB Q4HPO amp 09/17/16 Alprazolam [Xanax] 0.25 mg PO BID tablet MDD 2 09/17/16 Diltiazem [Cardizem -] 60 mg PO Q6HPO tablet 09/17/16 Magnesium Oxide [Mag-Ox -] 400 mg PO BID tablet 09/17/16 Naph,Mb-Db/K pH,Mbdb [PHOS-NaK PACKET -] 1 packet PO BID pow 09/17/16 Albuterol Sulfate Inhaler - [Ventolin HFA Inhaler -] 2 puff IH Q4H PRN #0 inhaler 09/23/16 Baclofen [Lioresal -] 20 mg PO TID 10/01/16 Docusate Sodium [Colace -] 300 mg PO HS 10/01/16 Budesonide/Formeterol Fumarate [SYMBICORT 160/4.5mcg -] 2 inh PO BID 11/01/16 Diphenhydramine [Benadryl 12.5 MG/5 ML Oral Solution -] 25 mg PO Q4H PRN Doxepin HCl [Sinequan -] 25 mg PO HS 11/01/16 Eletriptan Hydrobromide [Relpax -] 40 mg PO PRN 11/01/16 Gabapentin [Neurontin -] 300 mg PO TID 11/01/16 Metoprolol Tartrate [Lopressor -] 25 mg PO TID 11/01/16 Omeprazole 40 mg PO BID 11/01/16 Polyethylene Glycol 3350 [Miralax 119 gm Btl -] 17 gm PO DAILY 11/01/16 Roflumilast [Daliresp] 500 mcg PO DAILY 11/01/16 Sennosides [Senna] 2 tab PO HS 11/01/16 Zolpidem Tartrate [Ambien] 10 mg PO HS PRN MDD 1 11/01/16 Lipase/Protease/Amylase [Eamon Turner 6,000 Units Capsule] 3 cap PO TIDCM capsule. 11/07/16 Insulin Sliding Scale [Novolog Vial Sliding Scale -] 0 units SQ ACHS PRN Doxepin HCl [Sinequan -] 25 mg PO HS capsule 11/20/16 Hydromorphone [Dilaudid -] 2 mg PO Q8H PRN #0 tablet MDD 3 11/20/16 Lactobacillus Acidophilus [Bacid -] 1 tab PO BID tab 11/20/16 Loperamide HCl [Imodium -] 2 mg PO Q8H PRN #0 capsule 11/20/16 Metoclopramide HCl [Reglan -] 10 mg PO TIDAC tablet 11/20/16 Multivitamins [Multivit ([facility] Formul[facility])] 1 tab PO DAILY tab 11/20/16 Ondansetron [Zofran -] 4 mg PO Q4H PRN #0 tablet 11/20/16 Prednisone [Deltasone -] 60 mg PO DAILY #20 tablet 11/20/16 Zinc Oxide 1 applic TP BID tube 11/20/16 Insulin (Levemir) [Levemir Vial] 5 unit SQ DAILY #1 vial 11/21/16 Cholecalciferol (Vitamin D3) [Vitamin D3 -] 2,000 unit PO DAILY #30 tab Heparin - 5,000 unit SQ TID vial 11/28/16 Prednisone [Deltasone -] 10 mg PO DAILY tablet 11/28/16 Prednisone [Deltasone -] 20 mg PO DAILY tablet 11/28/16 Prednisone [Deltasone -] 30 mg PO DAILY tablet 11/28/16 Prednisone [Deltasone -] 40 mg PO DAILY tablet 11/28/16 Family Disease History - Family Disease History Family Disease History: Diabetes: Mother (heart surgery), Heart Disease: Mother , CA: Father (leukemia) Review of Systems - Review of Systems Constitutional: reports: No Symptoms Eyes: reports: No Symptoms HENT: reports: No Symptoms Neck: reports: No Symptoms Cardiovascular: reports: No Symptoms Respiratory: reports: No Symptoms Gastrointestinal: reports: No Symptoms Genitourinary: reports: No Symptoms Musculoskeletal: reports: No Symptoms, Decreased ROM, Extremity Pain (right ankle), Joint Pain, Joint Swelling Integumentary: reports: No Symptoms Neurological: reports: No Symptoms Endocrine: reports: No Symptoms Hematology/Lymphatic: reports: No Symptoms Psychiatric: reports: No Symptoms Physical Exam for Ortho Vital Signs: Vital Signs Temperature 98.7 F 11/25/16 19:48 Pulse Rate 92 H 11/26/16 11:45 Respiratory Rate 19 11/26/16 11:45 Blood Pressure 102/64 11/26/16 11:45 O2 Sat by Pulse Oximetry (%) 100 11/26/16 11:45 Constitutional: Yes: Well Nourished, No Distress, Calm Neck: Yes: WNL, Supple, Trachea Midline (s/p tracheostomy) Cardiovascular: Yes: WNL, Regular Rate and Rhythm Respiratory: Yes: WNL, Regular Neurological: Yes: WNL, Alert, Oriented Labs: INR, PTT INR 0.96 (0.82-1.09) 11/25/16 21:15 - Lower Extremity Pelvis: Yes: Exam WNL, Left, Right Hip: Yes: Exam WNL, Left, Right, Other (No pain with ROM, nontender to the greater trochanter and anteriorly over the hip). No: Decreased ROM, Ecchymosis , Leg Externally Rotated, Leg Shortened, Pain, Swelling Knee: Yes: Exam WNL, Left, Right Ankle: Yes: Right (short leg splint removed), Limited ROM, Pain, Swelling (mild lateral and medial swelling), Tenderness (lateral and medial malleoli, nontender ATFL, CFL, deltoid). No: Ecchymosis Foot: Yes: Exam WNL, Left, Right - Affected Extremity Motor Strength: 5/5: Right Leg Peripheral Pulses WNL: Yes Peripheral Pulses: 2+ Left Doralis Pedis, 2+ Right Dorsalis Pedis Neuro/Vascular Assessment: Yes: Warm, [place], Normal Sensation Imaging - Results X-ray: Report Reviewed, Image Reviewed (Right hip x-ray images showing reviewed showing no fracture or dislocation. Right ankle x-ray images and reports reviewed showing a minimally displaced bimalleolar fracture.) Problem List - Problems (1) Closed bimalleolar fracture Qualifiers: Encounter type: initial encounter Laterality: right Qualified Code(s): S82.841A - Displaced bimalleolar fracture of right lower leg, initial encounter for closed fracture Assessment/Plan 50 y/o female with a PMH of Afib, DM, HTN, HLD, COPD-oxygen dependent, uterine CA with mets to spine, colitis, bipolar depression, tracheostomy presents with a right ankle bimalleolar fracture -The patient is 90% wheelchair bound at baseline living in a rehab facility. We discussed operative versus non-operative management of her fracture. I reviewed that her fracture is minimally displaced and that it can heal on its own non- operatively in 6-8 weeks. I briefly reviewed surgical risks. Given the patient' s medical condition and baseline ambulatory status I have recommended non- operative management at this time. The patient elected to proceed. She will follow up in the office with myself and Dr. Castorena in 10-14 days for repeat imaging. We will consider continuing non-operative management with transition to a cast versus operative management with ORIF at that time. -NWB on the RLE -Remain in short leg splint -Ice, rest and elevate the ankle as needed -Continue pain control -Regarding the patient's right hip pain, her hip and pelvis x-rays were reviewed showing no sign of fracture. The patient denies any right hip pain at this time. She has no tenderness to the hip on exam and full ROM without pain. I do not feel that further imaging is necessary at this time. Should the patient develop hip pain or change in exam, can consider a right hip CT to rule out an occult fracture. -The case was discussed with Dr. Castorena who agreed with the above clinical treatment plan.
[2016-11-26] MEDS ORDERED: INSULIN REGULAR HUMAN 100 UNITS/ML *VIAL ONE (14:30)
[2016-11-26] MEDS ORDERED: PIPERACILLIN/TAZOB 3.375 GM/50 ML PRE-DOCKED IVPB ONE (15:25)
--- NOTE | 2016-11-26 16:01 | EKG ---
Test Reason : Blood Pressure : / mmHG Vent. Rate : 077 BPM Atrial Rate : 077 BPM P-R Int : 188 ms QRS Dur : 080 ms QT Int : 384 ms P-R-T Axes : 049 024 071 degrees QTc Int : 434 ms POOR DATA QUALITY, INTERPRETATION MAY BE ADVERSELY AFFECTED NORMAL SINUS RHYTHM NORMAL ECG WHEN COMPARED WITH ECG OF 08-NOV-2016 12:52, VENT. RATE HAS DECREASED BY 66 BPM Confirmed by FANNY KLEIN MD ([id number]) on 11/26/2016 4:01:14 PM Referred By: Confirmed By:FANNY KLEIN MD
--- NOTE | 2016-11-26 17:47 | PN ---
Teaching Attending Note Name of Resident: John Sanchez ATTENDING PHYSICIAN STATEMENT I saw and evaluated the patient. I reviewed the resident's note and discussed the case with the resident. I agree with the resident's findings and plan as documented. SUBJECTIVE: Patient is feeling better, was placed in the splint by the ortho. No fever or chills, no short of breath. OBJECTIVE: Vital Signs Temperature 98.7 F 11/25/16 19:48 Pulse Rate 92 H 11/26/16 11:45 Respiratory Rate 19 11/26/16 11:45 Blood Pressure 102/64 11/26/16 11:45 O2 Sat by Pulse Oximetry (%) 100 11/26/16 11:45 GENERAL: The patient is awake, alert, and fully oriented, in no acute distress. HEAD: Normal with no signs of trauma. EYES: PERRL, extraocular movements intact, sclera anicteric, conjunctiva clear. ENT: Ears normal, nares patent, oropharynx clear without exudates, moist mucous membranes. NECK: Trachea midline, full range of motion, supple. trach collar LUNGS: minimal exp wheezes to auscultation bilaterally, no crackles, no accessory muscle use. HEART: Regular rate and rhythm, S1, S2 without murmur, rub or gallop. ABDOMEN: Soft, diffuse tenderness, nondistended, normoactive bowel sounds, no guarding, no rebound, no hepatosplenomegaly, no masses. EXTREMITIES: 2+ pulses, warm, well-perfused, no edema in left lower ext. right lower ext with short leg splint, Good capillary refill ,able to move right foot toes NEUROLOGICAL: . Normal speech, gait not observed. PSYCH: Normal mood, normal affect. SKIN: Warm, dry, normal turgor, no rashes or lesions noted CBCD WBC 15.9 K/mm3 (4.0-10.0) H D 11/25/16 21:15 RBC 3.70 M/mm3 (3.60-5.2) D 11/25/16 21:15 Hgb 9.6 GM/dL (10.7-15.3) L D 11/25/16 21:15 Hct 31.0 % (32.4-45.2) L D 11/25/16 21:15 MCV 83.8 fl (80-96) 11/25/16 21:15 MCHC 30.9 g/dl (32.0-36.0) L 11/25/16 21:15 RDW 17.9 % (11.6-15.6) H 11/25/16 21:15 Plt Count 383 K/MM3 (134-434) D 11/25/16 21:15 MPV 8.5 fl (7.5-11.1) 11/25/16 21:15 CMP Sodium 140 mmol/L (136-145) 11/25/16 21:15 Potassium 3.5 mmol/L (3.5-5.1) 11/25/16 21:15 Chloride 104 mmol/L (98-107) 11/25/16 21:15 Carbon Dioxide 27 mmol/L (21-32) 11/25/16 21:15 Anion Gap 9 (8-16) 11/25/16 21:15 BUN 19 mg/dL (7-18) H D 11/25/16 21:15 Creatinine 0.8 mg/dL (0.55-1.02) 11/25/16 21:15 Creat Clearance w eGFR > 60 (>60) 11/25/16 21:15 Random Glucose 156 mg/dL (74-106) H D 11/25/16 21:15 Calcium 7.6 mg/dL (8.5-10.1) L 11/25/16 21:15 Total Bilirubin 0.1 mg/dL (0.2-1.0) L D 11/25/16 21:15 AST 14 U/L (15-37) L D 11/25/16 21:15 ALT 36 U/L (12-78) D 11/25/16 21:15 Alkaline Phosphatase 83 U/L (45-117) 11/25/16 21:15 Total Protein 6.1 g/dl (6.4-8.2) L 11/25/16 21:15 Albumin 2.8 g/dl (3.4-5.0) L 11/25/16 21:15 Current Medications Generic Name Dose Route Start Last Admin Trade Name Freq PRN Reason Stop Dose Admin Acetaminophen 650 mg 11/26/16 03:01 Tylenol - PO Q6H PRN PAIN Albuterol/Ipratropium 1 amp 11/26/16 03:15 11/26/16 14:45 Duoneb - NEB 1 amp Q4H PRN Administration Alprazolam 0.25 mg 11/26/16 10:00 11/26/16 11:45 Xanax - PO 0.25 mg BID EMMY Administration Baclofen 20 mg 11/26/16 06:00 11/26/16 06:48 Lioresal - PO 20 mg TID EMMY Administration Budesonide/Formoterol Fumarate 2 puff 11/26/16 10:00 Symbicort 160/4.5mcg - IH BID EMMY Cholecalciferol 2,000 unit 11/26/16 10:00 11/26/16 11:45 Vitamin D3 - PO 2,000 unit DAILY EMMY Administration Diltiazem HCl 60 mg 11/26/16 06:00 11/26/16 06:48 Cardizem - PO 60 mg Q6HPO EMMY Administration Docusate Sodium 300 mg 11/26/16 22:00 Colace - PO HS EMMY Doxepin HCl 25 mg 11/26/16 22:00 Sinequan - PO HS [facility] Eletriptan 40 mg 11/26/16 03:01 Relpax - PO DAILY PRN HEADACHE Gabapentin 300 mg 11/26/16 06:00 11/26/16 06:48 Neurontin - PO 300 mg TID [facility] Administration Heparin Sodium (Porcine) 5,000 unit 11/26/16 06:00 11/26/16 06:48 Heparin - SQ 5,000 unit TID EMMY Administration Hydromorphone HCl 1 mg 11/26/16 03:20 11/26/16 15:04 Dilaudid Injection - IVPB 1 mg Q4H PRN Administration PAIN Sodium Chloride 1,000 mls @ 125 mls/hr 11/25/16 20:30 11/25/16 21:54 Normal Saline - IV 125 mls/hr ASDIR [facility] Administration Insulin Aspart 1 vial 11/26/16 07:00 11/26/16 13:30 Novolog Vial Sliding Scale - SQ 2 units ACHS [facility] Administration Protocol Insulin Detemir 5 units 11/26/16 07:00 11/26/16 07:30 Levemir Vial SQ Not Given BIDI [facility] Levothyroxine Sodium 25 mcg 11/26/16 07:00 11/26/16 11:00 Synthroid - PO 25 mcg DAILY@0700 [facility] Administration Magnesium Oxide 400 mg 11/26/16 10:00 11/26/16 11:45 Mag-Ox - PO 400 mg BID EMMY Administration Metoprolol Tartrate 25 mg 11/26/16 06:00 11/26/16 06:48 Lopressor - PO 25 mg TID EMMY Administration Multivitamins/Minerals/Vitamin C 1 tab 11/26/16 10:00 11/26/16 11:45 Tab-A-Vit - PO 1 tab DAILY EMMY Administration Ondansetron HCl 4 mg 11/26/16 03:01 Zofran - PO Q4H PRN NAUSEA Pancrelipase 3 cap 11/26/16 08:00 11/26/16 12:00 Creon 6,000 Units Capsule PO 3 cap TIDCM [facility] Administration Pantoprazole Sodium 40 mg 11/26/16 10:00 11/26/16 11:45 Protonix - PO 40 mg BID EMMY Administration Polyethylene Glycol 17 gm 11/26/16 10:00 Miralax (For Daily Use) - PO DAILY [facility] Potassium Phos/Sodium Phos 1 packet 11/26/16 10:00 11/26/16 12:03 Phos-Nak Packet - PO Not Given DAILY [facility] Prednisone 30 mg 11/28/16 10:00 Deltasone - PO 12/01/16 09:59 DAILY [facility] Prednisone 10 mg 12/04/16 10:00 Deltasone - PO 12/07/16 09:59 DAILY [facility] Prednisone 40 mg 11/26/16 10:00 11/26/16 11:45 Deltasone - PO 11/28/16 09:59 40 mg DAILY EMMY Administration Prednisone 20 mg 12/01/16 10:00 Deltasone - PO 12/04/16 09:59 DAILY [facility] Roflumilast 500 mcg 11/26/16 10:00 11/26/16 11:45 Daliresp - PO 500 mcg DAILY [facility] Administration Senna 2 tab 11/26/16 22:00 Senna - PO [facility] Medication Instructions Recorded Acetaminophen [Tylenol .Regular 650 mg PO Q6H PRN #0 tablet 06/05/16 Strength -] Levothyroxine [Synthroid -] 25 mcg PO DAILY@0700 tablet 06/05/16 Albuterol 2.5/Ipratropium 0.5 1 amp NEB Q4HPO amp 09/17/16 [Duoneb -] Alprazolam [Xanax] 0.25 mg PO BID tablet MDD 2 09/17/16 Diltiazem [Cardizem -] 60 mg PO Q6HPO tablet 09/17/16 Magnesium Oxide [Mag-Ox -] 400 mg PO BID tablet 09/17/16 Naph,Mb-Db/K pH,Mbdb [PHOS-NaK 1 packet PO BID pow 09/17/16 PACKET -] Albuterol Sulfate Inhaler - 2 puff IH Q4H PRN #0 inhaler 09/23/16 [Ventolin HFA Inhaler -] Baclofen [Lioresal -] 20 mg PO TID 10/01/16 Docusate Sodium [Colace -] 300 mg PO HS 10/01/16 Budesonide/Formeterol Fumarate 2 inh PO BID 11/01/16 [SYMBICORT 160/4.5mcg -] Diphenhydramine [Benadryl 12.5 25 mg PO Q4H PRN 11/01/16 MG/5 ML Oral Solution -] Doxepin HCl [Sinequan -] 25 mg PO HS 11/01/16 Eletriptan Hydrobromide [Relpax -] 40 mg PO PRN 11/01/16 Gabapentin [Neurontin -] 300 mg PO TID 11/01/16 Metoprolol Tartrate [Lopressor -] 25 mg PO TID 11/01/16 Omeprazole 40 mg PO BID 11/01/16 Polyethylene Glycol 3350 [Miralax 17 gm PO DAILY 11/01/16 119 gm Btl -] Roflumilast [Daliresp] 500 mcg PO DAILY 11/01/16 Sennosides [Senna] 2 tab PO HS 11/01/16 Zolpidem Tartrate [Ambien] 10 mg PO HS PRN MDD 1 11/01/16 Lipase/Protease/Amylase [Eamon Turner 3 cap PO TIDCM capsule. 11/07/16 6,000 Units Capsule] Insulin Sliding Scale [Novolog 0 units SQ ACHS PRN 11/08/16 Vial Sliding Scale -] Doxepin HCl [Sinequan -] 25 mg PO HS capsule 11/20/16 Hydromorphone [Dilaudid -] 2 mg PO Q8H PRN #0 tablet MDD 3 11/20/16 Lactobacillus Acidophilus [Bacid -] 1 tab PO BID tab 11/20/16 Loperamide HCl [Imodium -] 2 mg PO Q8H PRN #0 capsule 11/20/16 Metoclopramide HCl [Reglan -] 10 mg PO TIDAC tablet 11/20/16 Multivitamins [Multivit ([facility] 1 tab PO DAILY tab 11/20/16 Formulary)] Ondansetron [Zofran -] 4 mg PO Q4H PRN #0 tablet 11/20/16 Prednisone [Deltasone -] 60 mg PO DAILY #20 tablet 11/20/16 Zinc Oxide 1 applic TP BID tube 11/20/16 Zolpidem Tartrate [Ambien] 10 mg PO HS PRN #0 tablet MDD 1 11/20/16 Insulin (Levemir) [Levemir Vial] 5 unit SQ DAILY #1 vial 11/21/16 Urine Test Results Urine Color Dkyellow 11/25/16 00:35 Urine Appearance Cloudy 11/25/16 00:35 Urine pH 6.0 (5.0-8.0) 11/25/16 00:35 Ur Specific [place] 1.019 (1.001-1.035) 11/25/16 00:35 Urine Protein 1+ (NEGATIVE) H 11/25/16 00:35 Urine Glucose (UA) Negative (NEGATIVE) 11/25/16 00:35 Urine Ketones Negative (NEGATIVE) 11/25/16 00:35 Urine Blood 1+ (NEGATIVE) H 11/25/16 00:35 Urine Nitrite Positive (NEGATIVE) 11/25/16 00:35 Urine Bilirubin Negative (NEGATIVE) 11/25/16 00:35 Ur Leukocyte Esterase 3+ (NEGATIVE) H 11/25/16 00:35 Urine RBC 228 /hpf (0-3) 11/25/16 00:35 Urine WBC 892 /hpf (3-5) 11/25/16 00:35 Ur Epithelial Cells Many /hpf (FEW) 11/25/16 00:35 Urine Bacteria Many /hpf (NONE SEEN) 11/25/16 00:35 Microbiology 11/08/16 14:27 Urine - Urine Clean Catch Urine Culture - Final Enterobacter Aerogenes 10/01/16 08:55 Urine - Urine Clean Catch Urine Culture - Final Pseudomonas Aeruginosa ASSESSMENT AND PLAN: 50yF with PMH of Afib, DM, HTN, HLD, COPD-oxygen dependent, 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 She is being admitted for bimalleolar fracture. # Acute Bimalleolar fracture of right ankle seen my ortho, splinted in ED. # Acute eukocytosis/UTI ; repeat culture of urine and blood ;previous urine resistant to cephalosporins and penicillins, will start the patient on Zosyn ; in old record both organism sensitive to zosyn Pseudomonas Aeruginosa, Enterobacter Aerogenes; discussed with ID #Atrial fibrillation not on AC, now in Sinus rhythm.cont current meds. cardizem , lopressor # HTN cont current meds # COPD-oxygen dependent , and on taper dose steroid due to COPD exac, cont home meds DVT PPX : heparin 5000 units TID
[2016-11-26] MEDS ORDERED: ALPRAZolam 0.25 MG TABLET ONE (18:12)
[2016-11-26] MEDS ORDERED: PIPERACILLIN/TAZOB 3.375 GM 50 ML IVPB ONE (18:16)
[2016-11-26] MEDS ORDERED: INSULIN DETEMIR 100 UNITS/ML MDV SQ ONE (18:17)
[2016-11-26] MEDS: POLYETHYLENE GLYCOL 3350 119 GM BTL PO SCH (18:41)
[2016-11-26] MEDS ORDERED: ALPRAZolam 0.25 MG TABLET PO ONE ×2 (18:50→18:51)
[2016-11-26] MEDS: BUDESONIDE/FORMETEROL FUMARATE 160/4.5 mcg INHALER IH SCH ×2 (21:50→23:27)
[2016-11-26] MEDS: DOCUSATE SODIUM 100 MG CAPSULE (FP) PO SCH (22:17)
[2016-11-26] MEDS: SENNOSIDES 8.6MG TABLET (FP) PO SCH (22:18)
[2016-11-26] MEDS ORDERED: INSULIN (NOVOLOG) ASPART 100 UNITS/ML 10ML VIAL ONE (22:58)
[2016-11-26] MEDS: SODIUM CHLORIDE 1,000 ML IV SCH (23:25)
[2016-11-26] MEDS: DOXEPIN HCL 25 MG CAPSULE PO SCH (23:27)
--- NOTE | 2016-11-27 00:34 | CONSULT ---
Consult Consult Specialty:: infectious diseases Reason for Consultation:: leukocutosis - History of Present Illness Chief Complaint: pain and fall and nausea History of Present Illness: 50 year old female with a PMH of Afib, DM, HTN, HLD, COPD-oxygen dependent, 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 She was found to have right lateral and medial malleolar fracture. On exam, pt with c/o ankle pain as well as concerned about her nighttime medications that she missed. patient mentions that she continues to ahve nausea,otherwise she is doing ok - History Source History Provided By: Patient Limitations to Obtaining History: No Limitations - Past Medical History Cardio/Vascular: Yes: AFIB (Paroxysmal), HTN, Hyperlipdemia Pulmonary: Yes: Asthma, COPD, O2 Dependent Renal/: Yes: Cancer (Uterine), Other ([place] in the past) Infectious Disease: Yes: C-Diff (june 2014), Other (Osteomyelitis of thoracic spine) Psych: Yes: Anxiety, Bipolar, Depression Musculoskeletal: Yes: Chronic low back pain Additional Medical History: Frequent c/o abdominal pain-extensive w/u in the past negative. Presumed adhesions from prior surgeries. - Past Surgical History Past Surgical History: Yes: Hysterectomy (with BSO) - Alcohol/Substance Use Hx Alcohol Use: No - Smoking History Smoking history: Unknown if ever smoked Have you smoked in the past 12 months: No Aproximately how many cigarettes per day: 3 If you are a former smoker, when did you quit?: 10/11/14 - Social History Usual Living Arrangement: With Significant Other 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) History of Recent Travel: No Home Medications - Allergies Allergies/Adverse Reactions: Allergies Allergy/AdvReac Type Severity Reaction Status Date / Time oxycodone [Oxycodone] Allergy Severe Nausea Verified 11/25/16 19:58 oxycodone HCl [From Percocet] Allergy Severe Nausea Verified 11/25/16 19:58 aspirin Allergy Mild Verified 11/25/16 19:58 blueberry [Blueberry] Allergy Mild Swelling Verified 11/25/16 19:58 promethazine HCl Allergy Mild Verified 11/25/16 19:58 [From Phenergan] promethazine Allergy Verified 11/25/16 19:58 - Home Medications Home Medications: Ambulatory Orders Acetaminophen [Tylenol .Regular Strength -] 650 mg PO Q6H PRN #0 tablet Levothyroxine [Synthroid -] 25 mcg PO DAILY@0700 tablet 06/05/16 Albuterol 2.5/Ipratropium 0.5 [Duoneb -] 1 amp NEB Q4HPO amp 09/17/16 Alprazolam [Xanax] 0.25 mg PO BID tablet MDD 2 09/17/16 Diltiazem [Cardizem -] 60 mg PO Q6HPO tablet 09/17/16 Magnesium Oxide [Mag-Ox -] 400 mg PO BID tablet 09/17/16 Naph,Mb-Db/K pH,Mbdb [PHOS-NaK PACKET -] 1 packet PO BID pow 09/17/16 Albuterol Sulfate Inhaler - [Ventolin HFA Inhaler -] 2 puff IH Q4H PRN #0 inhaler 09/23/16 Baclofen [Lioresal -] 20 mg PO TID 10/01/16 Docusate Sodium [Colace -] 300 mg PO HS 10/01/16 Budesonide/Formeterol Fumarate [SYMBICORT 160/4.5mcg -] 2 inh PO BID 11/01/16 Diphenhydramine [Benadryl 12.5 MG/5 ML Oral Solution -] 25 mg PO Q4H PRN Doxepin HCl [Sinequan -] 25 mg PO HS 11/01/16 Eletriptan Hydrobromide [Relpax -] 40 mg PO PRN 11/01/16 Gabapentin [Neurontin -] 300 mg PO TID 11/01/16 Metoprolol Tartrate [Lopressor -] 25 mg PO TID 11/01/16 Omeprazole 40 mg PO BID 11/01/16 Polyethylene Glycol 3350 [Miralax 119 gm Btl -] 17 gm PO DAILY 11/01/16 Roflumilast [Daliresp] 500 mcg PO DAILY 11/01/16 Sennosides [Senna] 2 tab PO HS 11/01/16 Zolpidem Tartrate [Ambien] 10 mg PO HS PRN MDD 1 11/01/16 Lipase/Protease/Amylase [Creon Dr 6,000 Units Capsule] 3 cap PO TIDCM capsule. 11/07/16 Insulin Sliding Scale [Novolog Vial Sliding Scale -] 0 units SQ ACHS PRN Doxepin HCl [Sinequan -] 25 mg PO HS capsule 11/20/16 Hydromorphone [Dilaudid -] 2 mg PO Q8H PRN #0 tablet MDD 3 11/20/16 Lactobacillus Acidophilus [Bacid -] 1 tab PO BID tab 11/20/16 Loperamide HCl [Imodium -] 2 mg PO Q8H PRN #0 capsule 11/20/16 Metoclopramide HCl [Reglan -] 10 mg PO TIDAC tablet 11/20/16 Multivitamins [Multivit ([facility] Formulary)] 1 tab PO DAILY tab 11/20/16 Ondansetron [Zofran -] 4 mg PO Q4H PRN #0 tablet 11/20/16 Prednisone [Deltasone -] 60 mg PO DAILY #20 tablet 11/20/16 Zinc Oxide 1 applic TP BID tube 11/20/16 Insulin (Levemir) [Levemir Vial] 5 unit SQ DAILY #1 vial 11/21/16 Family Disease History - Family Disease History Family Disease History: Diabetes: Mother (heart surgery), Heart Disease: Mother , CA: Father (leukemia) Review of Systems - Review of Systems Constitutional: reports: No Symptoms Eyes: reports: No Symptoms HENT: reports: No Symptoms Neck: reports: No Symptoms Cardiovascular: reports: No Symptoms Respiratory: reports: No Symptoms Gastrointestinal: reports: Nausea Genitourinary: reports: No Symptoms Breasts: reports: No Symptoms Reported Musculoskeletal: reports: Joint Pain, Joint Swelling Neurological: reports: No Symptoms Endocrine: reports: No Symptoms Hematology/Lymphatic: reports: No Symptoms Physical Exam Vital Signs: Vital Signs Temperature 98.9 F 11/26/16 21:44 Pulse Rate 91 H 11/26/16 21:44 Respiratory Rate 20 11/26/16 21:44 Blood Pressure 120/72 11/26/16 21:44 O2 Sat by Pulse Oximetry (%) 99 11/26/16 18:58 Constitutional: Yes: Well Nourished, Calm, Mild Distress Eyes: Yes: Conjunctiva Clear HENT: Yes: Atraumatic, Other (trach in place) Cardiovascular: Yes: Regular Rate and Rhythm Respiratory: Yes: Regular, CTA Bilaterally Gastrointestinal: Yes: Normal Bowel Sounds, Soft Musculoskeletal: Yes: Other Extremities: Yes: Other Neurological: Yes: Alert, Oriented Psychiatric: Yes: Alert Imaging - Results X-ray: Report Reviewed, Image Reviewed Other: Report Reviewed, Image Reviewed (all xrys) Assessment/Plan 50yF with PMH of Afib, DM, HTN, HLD, COPD-oxygen dependent, 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 She is being admitted for bimalleolar fracture. Bimalleolar fracture leukocytosis/UTI Atrial fibrillation HTN COPD i think her lukocytosis is from the injury plan will hold off on starting any abx at this time
[2016-11-27] MEDS: DOXEPIN HCL 25 MG CAPSULE PO SCH ×2 (01:06→21:13)
[2016-11-27] MEDS: dilTIAZem HCL 60 MG TABLET (FP) PO SCH ×4 (01:06→17:00)
[2016-11-27] MEDS: HYDROmorphone HCL CARPU-JECT 1 MG/1 ML DISP.SYRIN IVPB PRN ×4 (04:51→17:02)
[2016-11-27] MEDS: INSULIN SLIDING SCALE (NOVOLOG) 1 VIAL SQ SCH ×4 (06:19→21:56)
[2016-11-27] MEDS: GABAPENTIN 300 MG CAPSULE (FP) PO SCH ×3 (06:21→21:13)
[2016-11-27] MEDS: HEPARIN NA (PORCINE) 5,000 UNITS/ML 1ML VIAL SQ SCH ×3 (06:21→21:15)
[2016-11-27] MEDS: BACLOFEN 10 MG TABLET (FP) PO SCH ×3 (06:21→21:13)
[2016-11-27] MEDS: METOPROLOL TARTRATE 25 MG TABLET (FP) PO SCH ×3 (06:21→21:13)
[2016-11-27] MEDS: LEVOTHYROXINE NA 25 MCG TABLET (FP) PO SCH (06:21)
[2016-11-27] MEDS: INSULIN DETEMIR 100 UNITS/ML MDV SQ SCH ×2 (06:22→16:58)
[2016-11-27] MEDS ORDERED: PT OWN MED DRAWER 7, Y5N ONE ×6 (08:00→17:57)
[2016-11-27 08:14] LABS: MCH 26.9 pg (25.7-33.7); MEAN PLT VOLUME 8.9 fl (7.5-11.1); PLATELET COUNT 294 K/MM3 (134-434); RDW 18.4 % (11.6-15.6); WHITE BLOOD COUNT 9.8 K/mm3 (4.0-10.0)
--- NOTE | 2016-11-27 08:30 | PN ---
Physical Exam: SUBJECTIVE: Patient seen and examined Pt is in pleasant mood pain in right lower ext is more controlled No numbness or tingling or weakness Pt is complained of burning and discomfort on urination for last 2-3 days No fever, no chills, no chest pain or shortness of breath, no cough OBJECTIVE: Vital Signs Period Temp Pulse Resp BP Sys/Dan Pulse Ox Last 24 Hr 98.2 F-98.9 F 86-92 18-20 102-125/64-74 98-100 GENERAL: The patient is awake, alert, and fully oriented, in no acute distress. HEAD: Normal with no signs of trauma. EYES: PERRL, extraocular movements intact, sclera anicteric, conjunctiva clear. No ptosis. ENT: Ears normal, nares patent, oropharynx clear without exudates, moist mucous membranes. NECK: Trachea midline, full range of motion, supple. trach collar LUNGS: minimal exp wheezes to auscultation bilaterally, no crackles, no accessory muscle use. HEART: Regular rate and rhythm, S1, S2 without murmur, rub or gallop. ABDOMEN: Soft, diffuse tenderness, nondistended, normoactive bowel sounds, no guarding, no rebound, no hepatosplenomegaly, no masses. EXTREMITIES: 2+ pulses, warm, well-perfused, no edema in left lower ext. right lower ext with short leg splint, Good capillary refill in right toes less than 2 sec, able to moves right foot toes, normal sensation in right lower ext, no color to right toes. tenderness with movement of right foot. NEUROLOGICAL: . Normal speech, gait not observed. PSYCH: Normal mood, normal affect. SKIN: Warm, dry, normal turgor, no rashes or lesions noted Laboratory Results - last 24 hr 11/26/16 11/26/16 11/27/16 12:47 18:22 06:18 WBC RBC Hgb Hct MCV MCHC RDW Plt Count MPV Neutrophils % Lymphocytes % POC Glucometer [phone] 11/27/16 06:55 WBC 9.8 D RBC 3.05 L Hgb 8.2 L D Hct 25.7 L D MCV 84.0 MCHC 32.0 RDW 18.4 H Plt Count 294 D MPV 8.9 Neutrophils % Y Lymphocytes % Y POC Glucometer Active Medications Generic Name Dose Route Start Last Admin Trade Name Freq PRN Reason Stop Dose Admin Acetaminophen 650 mg 11/26/16 03:01 Tylenol - PO Q6H PRN PAIN Albuterol/Ipratropium 1 amp 11/26/16 03:15 11/26/16 18:46 Duoneb - NEB 1 amp Q4H PRN Administration Alprazolam 0.25 mg 11/26/16 10:00 11/26/16 22:54 Xanax - PO Not Given BID EMMY Baclofen 20 mg 11/26/16 06:00 11/27/16 06:21 Lioresal - PO 20 mg TID EMMY Administration Budesonide/Formoterol Fumarate 2 puff 11/26/16 10:00 11/26/16 23:27 Symbicort 160/4.5mcg - IH Not Given BID [facility] Cholecalciferol 2,000 unit 11/26/16 10:00 11/26/16 11:45 Vitamin D3 - PO 2,000 unit DAILY EMMY Administration Diltiazem HCl 60 mg 11/26/16 06:00 11/27/16 06:21 Cardizem - PO 60 mg Q6HPO EMMY Administration Docusate Sodium 300 mg 11/26/16 22:00 11/26/16 22:17 Colace - PO 300 mg HS EMMY Administration Doxepin HCl 25 mg 11/26/16 22:00 11/27/16 01:06 Sinequan - PO 25 mg HS EMMY Administration Eletriptan 40 mg 11/26/16 03:01 Relpax - PO DAILY PRN HEADACHE Gabapentin 300 mg 11/26/16 06:00 11/27/16 06:21 Neurontin - PO 300 mg TID EMMY Administration Heparin Sodium (Porcine) 5,000 unit 11/26/16 06:00 11/27/16 06:21 Heparin - SQ 5,000 unit TID [facility] Administration Hydromorphone HCl 1 mg 11/26/16 03:20 11/27/16 04:51 Dilaudid Injection - IVPB 1 mg Q4H PRN Administration PAIN Sodium Chloride 1,000 mls @ 125 mls/hr 11/25/16 20:30 11/26/16 23:25 Normal Saline - IV 125 mls/hr ASDIR EMMY Administration Insulin Aspart 1 vial 11/26/16 07:00 11/27/16 06:19 Novolog Vial Sliding Scale - SQ Not Given ACHS [facility] Protocol Insulin Detemir 5 units 11/26/16 07:00 11/27/16 06:22 Levemir Vial SQ 5 units BIDI EMYM Administration Levothyroxine Sodium 25 mcg 11/26/16 07:00 11/27/16 06:21 Synthroid - PO 25 mcg DAILY@0700 EMMY Administration Magnesium Oxide 400 mg 11/26/16 10:00 11/26/16 22:18 Mag-Ox - PO 400 mg BID EMMY Administration Metoprolol Tartrate 25 mg 11/26/16 06:00 11/27/16 06:21 Lopressor - PO 25 mg TID EMMY Administration Multivitamins/Minerals/Vitamin C 1 tab 11/26/16 10:00 11/26/16 11:45 Tab-A-Vit - PO 1 tab DAILY EMMY Administration Ondansetron HCl 4 mg 11/26/16 03:01 Zofran - PO Q4H PRN NAUSEA Pancrelipase 3 cap 11/26/16 08:00 11/26/16 21:[address] 6,000 Units Capsule PO Not Given TIDCM [facility] Pantoprazole Sodium 40 mg 11/26/16 10:00 11/26/16 22:18 Protonix - PO 40 mg BID EMMY Administration Polyethylene Glycol 17 gm 11/26/16 10:00 11/26/16 18:41 Miralax (For Daily Use) - PO Not Given DAILY [facility] Potassium Phos/Sodium Phos 1 packet 11/26/16 10:00 11/26/16 12:03 Phos-Nak Packet - PO Not Given DAILY [facility] Prednisone 30 mg 11/28/16 10:00 Deltasone - PO 12/01/16 09:59 DAILY EMMY Prednisone 10 mg 12/04/16 10:00 Deltasone - PO 12/07/16 09:59 DAILY [facility] Prednisone 40 mg 11/26/16 10:00 11/26/16 11:45 Deltasone - PO 11/28/16 09:59 40 mg DAILY EMMY Administration Prednisone 20 mg 12/01/16 10:00 Deltasone - PO 12/04/16 09:59 DAILY [facility] Roflumilast 500 mcg 11/26/16 10:00 11/26/16 11:45 Daliresp - PO 500 mcg DAILY EMMY Administration Senna 2 tab 11/26/16 22:00 11/26/16 22:18 Senna - PO 2 tab HS EMMY Administration ASSESSMENT/PLAN: Xray hip and Pelvis 11/25/15: Suboptimal examination due to osteopenia and likely due to the patient's body habitus without gross evidence of a fracture or dislocation. Correlate clinically for further evaluation. CXR 11/25/15: Since prior chest x-ray dated 11/01/2016, and allowing for the difference in technique, the cardiac silhouette remains borderline in size. There are increased interstitial lung markings, bilaterally likely due to technique. No focal infiltrates are identified. Extensive hardware again noted in the thoracic spine. Tracheostomy tube is in satisfactory position Xray Right Ankle: Slightly displaced medial and lateral malleolar fracture. Severe osteopenia. ASSESSMENT/PLAN: 50 year old female from of [facility], with pmh PAF, HTN, diabetes, COPD, asthma, tracheostomy, uterine cancer, anxiety, depression, bipolar disorder, abdominal abscess presented to ED s/p fall while in rehab. Pt was found to have a right malleolar fracture on xray foot. Right lateral and medial malleolar fracture Pt was seen by [facility] DIRECTOR yesterday Short leg splint placed to right lower ext placed Ortho Follow up with Dr Castorena in 10-14 days in their office Non weight bearing to right lower ext Ice, rest and elevate the ankle as needed Dilaudid 1mg q4h prn for pain Vitamin D UTI Pt has 3+ leuk est, + nitrite, urine wbc lactic acid 1.5, wbc 15.9 WBC could be elevated because of Steroid use pending urine culture Blood culture ordered consider repeating UA Dr Williamson consulted for ID give one dose of zosyn IV yesterday One dose of zosyn now Pt have h/o urine pseudomonas and enterobacter aerogenes in the last 2 months sensitive to zosyn COPD with chronic hypoxic failure pt w improving exp wheezes Pulmonary on case On trach collar keep O2 sat >88% Continue Daliresp on Prednisone taper currently at 40mg po daily for 3 day, Then will decrease to 30mg daily for 3 days. then 20mg qd for 3 days, then 10mg qd for 3 days then dc Continue bronchodilators Anxiety disorder/ Depression continue Xanax Continue Sinequan Hypothryoidism continue synthroid DM2 Novolog sliding scale levemir 5 u Sq BID PAF currently in Sinus rhythm on cardizem Po On lopressor Po HTN on cardizem Po On lopressor Po Hyperlipidemia consider statins FEN Fluid: None Electrolytes: no abnormalities Nutrition: Diabetic diet Prophylaxis DVT: SCD, heparin SQ Deconditionning : PT BID Disposition: Keep in medsurg until urine culture result Visit type - Emergency Visit Emergency Visit: Yes ED Registration Date: 11/25/16 Care time: The patient presented to the Emergency Department on the above date and was hospitalized for further evaluation of their emergent condition. - New Patient This patient is new to me today: No - Critical Care Critical Care patient: No
[2016-11-27 08:43] LABS: CREATININE 0.6 mg/dL (0.55-1.02); MAGNESIUM 2.3 mg/dL (1.8-2.4); PHOSPHOROUS 2.5 mg/dL (2.5-4.9)
[2016-11-27] MEDS ORDERED: PIPERACILLIN/TAZOB 3.375 GM/50 ML PRE-DOCKED IVPB ONE (09:00)
[2016-11-27] MEDS: LIPASE/PROTEASE/AMYLASE 6,000 UNIT CAPSULE PO SCH ×3 (09:08→18:45)
[2016-11-27] MEDS: predniSONE 20 MG TABLET (UD) PO SCH (09:10)
[2016-11-27] MEDS: POLYETHYLENE GLYCOL 3350 119 GM BTL PO SCH ×3 (09:10→16:03)
[2016-11-27] MEDS: MAGNESIUM OXIDE 400 MG TABLET (FP) PO SCH ×2 (09:10→21:14)
[2016-11-27] MEDS: NAPH,MB-DB/K PH,MBDB POWDER PACKET PO SCH (09:10)
[2016-11-27] MEDS: PANTOPRAZOLE 40 MG TABLET (FP) PO SCH ×2 (09:10→21:14)
[2016-11-27] MEDS: CHOLECALCIFEROL (VITAMIN D3) 1,000 UNIT TABLET (FP) PO SCH (09:11)
[2016-11-27] MEDS: MULTIVITAMINS (DAILY MVI) TABLET (FP) PO SCH (09:11)
[2016-11-27] MEDS: BUDESONIDE/FORMETEROL FUMARATE 160/4.5 mcg INHALER IH SCH ×2 (09:11→21:14)
[2016-11-27] MEDS: ALPRAZolam 0.25 MG TABLET PO SCH ×2 (09:11→21:14)
[2016-11-27] MEDS: ALBUTEROL SO4 2.5/IPRATROPIUM 0.5 INH SOL 3 ML VIAL.NEB. NEB PRN (10:14)
[2016-11-27] MEDS ORDERED: INSULIN (NOVOLOG) ASPART 100 UNITS/ML 10ML VIAL ONE ×4 (11:49→21:03)
[2016-11-27] MEDS: ROFLUMILAST 500 MCG TABLET PO SCH (12:29)
[2016-11-27] MEDS: SODIUM CHLORIDE 1,000 ML IV SCH ×2 (16:00→21:15)
--- NOTE | 2016-11-27 16:41 | PN ---
Progress Note, Physician History of Present Illness: stable no new issues splinting to the leg - Current Medication List Current Medications: Active Medications Acetaminophen (Tylenol -) 650 mg PO Q6H PRN PRN Reason: PAIN Albuterol/Ipratropium (Duoneb -) 1 amp NEB Q4H PRN Last Admin: 11/27/16 10:14 Dose: 1 amp Alprazolam (Xanax -) 0.25 mg PO BID [facility] Last Admin: 11/27/16 09:11 Dose: 0.25 mg Baclofen (Lioresal -) 20 mg PO TID [facility] Last Admin: 11/27/16 13:47 Dose: 20 mg Budesonide/Formoterol Fumarate (Symbicort 160/4.5mcg -) 2 puff IH BID [facility] Last Admin: 11/27/16 09:11 Dose: 2 puff Cholecalciferol (Vitamin D3 -) 2,000 unit PO DAILY [facility] Last Admin: 11/27/16 09:11 Dose: 2,000 unit Diltiazem HCl (Cardizem -) 60 mg PO Q6HPO [facility] Last Admin: 11/27/16 12:30 Dose: 60 mg Docusate Sodium (Colace -) 300 mg PO HS [facility] Last Admin: 11/26/16 22:17 Dose: 300 mg Doxepin HCl (Sinequan -) 25 mg PO HS [facility] Last Admin: 11/27/16 01:06 Dose: 25 mg Eletriptan (Relpax -) 40 mg PO DAILY PRN PRN Reason: HEADACHE Gabapentin (Neurontin -) 300 mg PO TID [facility] Last Admin: 11/27/16 13:47 Dose: 300 mg Heparin Sodium (Porcine) (Heparin -) 5,000 unit SQ TID [facility] Last Admin: 11/27/16 13:47 Dose: 5,000 unit Hydromorphone HCl (Dilaudid Injection -) 1 mg IVPB Q4H PRN PRN Reason: PAIN Last Admin: 11/27/16 12:55 Dose: 1 mg Sodium Chloride (Normal Saline -) 1,000 mls @ 125 mls/hr IV ASDIR [facility] Last Admin: 11/27/16 16:00 Dose: 125 mls/hr Insulin Aspart (Novolog Vial Sliding Scale -) 1 vial SQ ACHS [facility] PRN Reason: Protocol Last Admin: 11/27/16 12:29 Dose: 2 units Insulin Detemir (Levemir Vial) 5 units SQ BIDI [facility] Last Admin: 11/27/16 06:22 Dose: 5 units Levothyroxine Sodium (Synthroid -) 25 mcg PO DAILY@0700 [facility] Last Admin: 11/27/16 06:21 Dose: 25 mcg Magnesium Oxide (Mag-Ox -) 400 mg PO BID [facility] Last Admin: 11/27/16 09:10 Dose: 400 mg Metoprolol Tartrate (Lopressor -) 25 mg PO TID [facility] Last Admin: 11/27/16 13:46 Dose: Not Given Multivitamins/Minerals/Vitamin C (Tab-A-Vit -) 1 tab PO DAILY [facility] Last Admin: 11/27/16 09:11 Dose: 1 tab Ondansetron HCl (Zofran -) 4 mg PO Q4H PRN PRN Reason: NAUSEA Pancrelipase (Creon Dr 6,000 Units Capsule) 3 cap PO TIDCM [facility] Last Admin: 11/27/16 12:31 Dose: 3 cap Pantoprazole Sodium (Protonix -) 40 mg PO BID [facility] Last Admin: 11/27/16 09:10 Dose: 40 mg Polyethylene Glycol (Miralax (For Daily Use) -) 17 gm PO DAILY [facility] Last Admin: 11/27/16 16:03 Dose: 17 gm Potassium Phos/Sodium Phos (Phos-Nak Packet -) 1 packet PO DAILY [facility] Last Admin: 11/27/16 09:10 Dose: Not Given Prednisone (Deltasone -) 30 mg PO DAILY [facility] Stop: 12/01/16 09:59 Prednisone (Deltasone -) 10 mg PO DAILY [facility] Stop: 12/07/16 09:59 Prednisone (Deltasone -) 40 mg PO DAILY [facility] Stop: 11/28/16 09:59 Last Admin: 11/27/16 09:10 Dose: 40 mg Prednisone (Deltasone -) 20 mg PO DAILY [facility] Stop: 12/04/16 09:59 Roflumilast (Daliresp -) 500 mcg PO DAILY [facility] Last Admin: 11/27/16 12:29 Dose: 500 mcg Senna (Senna -) 2 tab PO HS [facility] Last Admin: 11/26/16 22:18 Dose: 2 tab - Objective Vital Signs: Vital Signs Temperature 98.0 F 11/27/16 13:47 Pulse Rate 85 11/27/16 13:47 Respiratory Rate 20 11/27/16 13:47 Blood Pressure 98/44 11/27/16 13:47 O2 Sat by Pulse Oximetry (%) 98 11/27/16 10:16 Constitutional: Yes: No Distress, Calm Neck: Yes: Other (trach in place) Cardiovascular: Yes: Regular Rate and Rhythm Respiratory: Yes: Regular Gastrointestinal: Yes: Normal Bowel Sounds, Soft Musculoskeletal: Yes: WNL Extremities: Yes: Other Neurological: Yes: Alert, Oriented Psychiatric: Yes: Alert Labs: CBC, BMP 11/27/16 06:55 11/27/16 06:55 INR, PTT INR 0.96 (0.82-1.09) 11/25/16 21:15 Assessment/Plan 50yF with PMH of Afib, DM, HTN, HLD, COPD-oxygen dependent, 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 She is being admitted for bimalleolar fracture. Bimalleolar fracture leukocytosis/UTI Atrial fibrillation HTN COPD i think her lukocytosis is from the injury plan no abx await for all cx report
[2016-11-27] MEDS ORDERED: INSULIN DETEMIR 100 UNITS/ML MDV SQ ONE (17:34)
--- NOTE | 2016-11-27 19:51 | PN ---
Teaching Attending Note Name of Resident: John Sanchez ATTENDING PHYSICIAN STATEMENT I saw and evaluated the patient. I reviewed the resident's note and discussed the case with the resident. I agree with the resident's findings and plan as documented. SUBJECTIVE: Comfortable with no acute distress, mild urinary burning sensation, no nausea or vomiting. OBJECTIVE: Vital Signs Temperature 98.2 F 11/27/16 16:15 Pulse Rate 70 11/27/16 16:15 Respiratory Rate 18 11/27/16 16:15 Blood Pressure 109/62 11/27/16 16:15 O2 Sat by Pulse Oximetry (%) 98 11/27/16 10:16 GENERAL: The patient is awake, alert, and fully oriented, in no acute distress. HEAD: Normal with no signs of trauma. EYES: PERRL, extraocular movements intact, sclera anicteric, conjunctiva clear. ENT: Ears normal, nares patent, oropharynx clear without exudates, moist mucous membranes. NECK: Trachea midline, full range of motion, supple. trach collar LUNGS: minimal exp wheezes to auscultation bilaterally, no crackles, no accessory muscle use. HEART: Regular rate and rhythm, S1, S2 positive,no rub or gallop. ABDOMEN: Soft, no tenderness, nondistended, normoactive bowel sounds, no guarding, no rebound, no hepatosplenomegaly, no masses appreciated. EXTREMITIES: 2+ pulses, warm, well-perfused, no edema in left lower ext. right lower ext. leg splint, Good capillary refill ,able to move right foot toes NEUROLOGICAL: . Normal speech, gait not observed. PSYCH: Normal mood, normal affect. SKIN: Warm, dry, normal turgor, no rashes or lesions noted CBCD WBC 9.8 K/mm3 (4.0-10.0) D 11/27/16 06:55 RBC 3.05 M/mm3 (3.60-5.2) L 11/27/16 06:55 Hgb 8.2 GM/dL (10.7-15.3) L D 11/27/16 06:55 Hct 25.7 % (32.4-45.2) L D 11/27/16 06:55 MCV 84.0 fl (80-96) 11/27/16 06:55 MCHC 32.0 g/dl (32.0-36.0) 11/27/16 06:55 RDW 18.4 % (11.6-15.6) H 11/27/16 06:55 Plt Count 294 K/MM3 (134-434) D 11/27/16 06:55 MPV 8.9 fl (7.5-11.1) 11/27/16 06:55 CMP Sodium 142 mmol/L (136-145) 11/27/16 06:55 Potassium 3.8 mmol/L (3.5-5.1) 11/27/16 06:55 Chloride 106 mmol/L (98-107) 11/27/16 06:55 Carbon Dioxide 29 mmol/L (21-32) 11/27/16 06:55 Anion Gap 7 (8-16) L 11/27/16 06:55 BUN 15 mg/dL (7-18) D 11/27/16 06:55 Creatinine 0.6 mg/dL (0.55-1.02) D 11/27/16 06:55 Creat Clearance w eGFR > 60 (>60) 11/25/16 21:15 Random Glucose 110 mg/dL (74-106) H D 11/27/16 06:55 Calcium 8.0 mg/dL (8.5-10.1) L 11/27/16 06:55 Total Bilirubin 0.1 mg/dL (0.2-1.0) L D 11/25/16 21:15 AST 14 U/L (15-37) L D 11/25/16 21:15 ALT 36 U/L (12-78) D 11/25/16 21:15 Alkaline Phosphatase 83 U/L (45-117) 11/25/16 21:15 Total Protein 6.1 g/dl (6.4-8.2) L 11/25/16 21:15 Albumin 2.8 g/dl (3.4-5.0) L 11/25/16 21:15 Current Medications Generic Name Dose Route Start Last Admin Trade Name Freq PRN Reason Stop Dose Admin Acetaminophen 650 mg 11/26/16 03:01 Tylenol - PO Q6H PRN PAIN Albuterol/Ipratropium 1 amp 11/26/16 03:15 11/27/16 10:14 Duoneb - NEB 1 amp Q4H PRN Administration Alprazolam 0.25 mg 11/26/16 10:00 11/27/16 09:11 Xanax - PO 0.25 mg BID EMMY Administration Baclofen 20 mg 11/26/16 06:00 11/27/16 13:47 Lioresal - PO 20 mg TID EMMY Administration Budesonide/Formoterol Fumarate 2 puff 11/26/16 10:00 11/27/16 09:11 Symbicort 160/4.5mcg - IH 2 puff BID EMMY Administration Cholecalciferol 2,000 unit 11/26/16 10:00 11/27/16 09:11 Vitamin D3 - PO 2,000 unit DAILY EMMY Administration Diltiazem HCl 60 mg 11/26/16 06:00 11/27/16 17:00 Cardizem - PO 60 mg Q6HPO EMMY Administration Docusate Sodium 300 mg 11/26/16 22:00 11/26/16 22:17 Colace - PO 300 mg HS EMMY Administration Doxepin HCl 25 mg 11/26/16 22:00 11/27/16 01:06 Sinequan - PO 25 mg HS EMMY Administration Eletriptan 40 mg 11/26/16 03:01 Relpax - PO DAILY PRN HEADACHE Gabapentin 300 mg 11/26/16 06:00 11/27/16 13:47 Neurontin - PO 300 mg TID EMMY Administration Heparin Sodium (Porcine) 5,000 unit 11/26/16 06:00 11/27/16 13:47 Heparin - SQ 5,000 unit TID EMMY Administration Hydromorphone HCl 1 mg 11/26/16 03:20 11/27/16 17:02 Dilaudid Injection - IVPB 1 mg Q4H PRN Administration PAIN Sodium Chloride 1,000 mls @ 125 mls/hr 11/25/16 20:30 11/27/16 16:00 Normal Saline - IV 125 mls/hr ASDIR EMMY Administration Insulin Aspart 1 vial 11/26/16 07:00 11/27/16 16:59 Novolog Vial Sliding Scale - SQ 5 units ACHS EMMY Administration Protocol Insulin Detemir 5 units 11/26/16 07:00 11/27/16 16:58 Levemir Vial SQ 5 units BIDI EMMY Administration Levothyroxine Sodium 25 mcg 11/26/16 07:00 11/27/16 06:21 Synthroid - PO 25 mcg DAILY@0700 EMMY Administration Magnesium Oxide 400 mg 11/26/16 10:00 11/27/16 09:10 Mag-Ox - PO 400 mg BID EMMY Administration Metoprolol Tartrate 25 mg 11/26/16 06:00 11/27/16 13:46 Lopressor - PO Not Given TID EMMY Multivitamins/Minerals/Vitamin C 1 tab 11/26/16 10:00 11/27/16 09:11 Tab-A-Vit - PO 1 tab DAILY [facility]MM[facility] Administration Ondansetron HCl 4 mg 11/26/16 03:01 Zofran - PO Q4H PRN NAUSEA Pancrelipase 3 cap 11/26/16 08:00 11/27/16 18:45 Creon 6,000 Units Capsule PO Not Given TIDCM [facility] Pantoprazole Sodium 40 mg 11/26/16 10:00 11/27/16 09:10 Protonix - PO 40 mg BID EMMY Administration Polyethylene Glycol 17 gm 11/26/16 10:00 11/27/16 16:03 Miralax (For Daily Use) - PO 17 gm DAILY EMMY Administration Potassium Phos/Sodium Phos 1 packet 11/26/16 10:00 11/27/16 09:10 Phos-Nak Packet - PO Not Given DAILY [facility] Prednisone 30 mg 11/28/16 10:00 Deltasone - PO 12/01/16 09:59 DAILY EMM[facility] Prednisone 10 mg 12/04/16 10:00 Deltasone - PO 12/07/16 09:59 DAILY [facility] Prednisone 40 mg 11/26/16 10:00 11/27/16 09:10 Deltasone - PO 11/28/16 09:59 40 mg DAILY EMMY Administration Prednisone 20 mg 12/01/16 10:00 Deltasone - PO 12/04/16 09:59 DAILY EMMY Roflumilast 500 mcg 11/26/16 10:00 11/27/16 12:29 Daliresp - PO 500 mcg DAILY EMMY Administration Senna 2 tab 11/26/16 22:00 11/26/16 22:18 Senna - PO 2 tab HS EMMY Administration Medication Instructions Recorded Acetaminophen [Tylenol .Regular 650 mg PO Q6H PRN #0 tablet 06/05/16 Strength -] Levothyroxine [Synthroid -] 25 mcg PO DAILY@0700 tablet 06/05/16 Albuterol 2.5/Ipratropium 0.5 1 amp NEB Q4HPO amp 09/17/16 [Duoneb -] Alprazolam [Xanax] 0.25 mg PO BID tablet MDD 2 09/17/16 Diltiazem [Cardizem -] 60 mg PO Q6HPO tablet 09/17/16 Magnesium Oxide [Mag-Ox -] 400 mg PO BID tablet 09/17/16 Naph,Mb-Db/K pH,Mbdb [PHOS-NaK 1 packet PO BID pow 09/17/16 PACKET -] Albuterol Sulfate Inhaler - 2 puff IH Q4H PRN #0 inhaler 09/23/16 [Ventolin HFA Inhaler -] Baclofen [Lioresal -] 20 mg PO TID 10/01/16 Docusate Sodium [Colace -] 300 mg PO HS 10/01/16 Budesonide/Formeterol Fumarate 2 inh PO BID 11/01/16 [SYMBICORT 160/4.5mcg -] Diphenhydramine [Benadryl 12.5 25 mg PO Q4H PRN 11/01/16 MG/5 ML Oral Solution -] Doxepin HCl [Sinequan -] 25 mg PO HS 11/01/16 Eletriptan Hydrobromide [Relpax -] 40 mg PO PRN 11/01/16 Gabapentin [Neurontin -] 300 mg PO TID 11/01/16 Metoprolol Tartrate [Lopressor -] 25 mg PO TID 11/01/16 Omeprazole 40 mg PO BID 11/01/16 Polyethylene Glycol 3350 [Miralax 17 gm PO DAILY 11/01/16 119 gm Btl -] Roflumilast [Daliresp] 500 mcg PO DAILY 11/01/16 Sennosides [Senna] 2 tab PO HS 11/01/16 Zolpidem Tartrate [Ambien] 10 mg PO HS PRN MDD 1 11/01/16 Lipase/Protease/Amylase [Eamon Turner 3 cap PO TIDCM capsule. 11/07/16 6,000 Units Capsule] Insulin Sliding Scale [Novolog 0 units SQ ACHS PRN 11/08/16 Vial Sliding Scale -] Doxepin HCl [Sinequan -] 25 mg PO HS capsule 11/20/16 Hydromorphone [Dilaudid -] 2 mg PO Q8H PRN #0 tablet MDD 3 11/20/16 Lactobacillus Acidophilus [Bacid -] 1 tab PO BID tab 11/20/16 Loperamide HCl [Imodium -] 2 mg PO Q8H PRN #0 capsule 11/20/16 Metoclopramide HCl [Reglan -] 10 mg PO TIDAC tablet 11/20/16 Multivitamins [Multivit ([facility] 1 tab PO DAILY tab 11/20/16 Formulary)] Ondansetron [Zofran -] 4 mg PO Q4H PRN #0 tablet 11/20/16 Prednisone [Deltasone -] 60 mg PO DAILY #20 tablet 11/20/16 Zinc Oxide 1 applic TP BID tube 11/20/16 Insulin (Levemir) [Levemir Vial] 5 unit SQ DAILY #1 vial 11/21/16 11/08/16 14:27 Urine - Urine Clean Catch Urine Culture - Final Enterobacter Aerogenes 10/01/16 08:55 Urine - Urine Clean Catch Urine Culture - Final Pseudomonas Aeruginosa ASSESSMENT AND PLAN: 50yF with PMH of Afib, DM, HTN, HLD, COPD-oxygen dependent, 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 She is being admitted for bimalleolar fracture. # Acute Bimalleolar fracture of right ankle seen my ortho, splinted in ED.continues to have pain. # Acute leukocytosis/UTI IV antibitoic was discontinued by ID; for now , s/p Zosyn x 2 doses ; repeat urine and repeat culture ordered ; Patient is asymptomatic ;no fever no chills, BP 109/62 ;previous urine resistant to cephalosporins and penicillins; in old record both organism sensitive to zosyn Pseudomonas Aeruginosa, Enterobacter Aerogenes. #Atrial fibrillation not on AC due to having GI Bleeds, now in Sinus rhythm.cont current meds. cardizem, lopressor # HTN cont current meds # COPD-oxygen dependent , and on taper dose steroid due to COPD exac, cont. home meds albuterol inh.at bedside. DVT PPX : heparin 5000 units TID
[2016-11-27] MEDS: DOCUSATE SODIUM 100 MG CAPSULE (FP) PO SCH (21:12)
[2016-11-27] MEDS: SENNOSIDES 8.6MG TABLET (FP) PO SCH (21:14)
[2016-11-27] MEDS: ZOLPIDEM TARTRATE 5 MG TABLET PO PRN (22:35)
[2016-11-28] MEDS: dilTIAZem HCL 60 MG TABLET (FP) PO SCH ×4 (00:15→18:19)
[2016-11-28] MEDS: HYDROmorphone HCL CARPU-JECT 1 MG/1 ML DISP.SYRIN IVPB PRN ×3 (01:00→09:17)
[2016-11-28] MEDS ORDERED: PT OWN MED DRAWER 7, Y5N ONE ×3 (05:15→18:54)
[2016-11-28] MEDS: BACLOFEN 10 MG TABLET (FP) PO SCH ×3 (05:19→21:51)
[2016-11-28] MEDS: HEPARIN NA (PORCINE) 5,000 UNITS/ML 1ML VIAL SQ SCH ×3 (05:19→21:52)
[2016-11-28] MEDS: GABAPENTIN 300 MG CAPSULE (FP) PO SCH ×3 (05:20→21:51)
[2016-11-28] MEDS: METOPROLOL TARTRATE 25 MG TABLET (FP) PO SCH ×3 (05:20→21:51)
[2016-11-28] MEDS: INSULIN DETEMIR 100 UNITS/ML MDV SQ SCH ×2 (06:39→18:16)
[2016-11-28] MEDS: INSULIN SLIDING SCALE (NOVOLOG) 1 VIAL SQ SCH ×4 (06:39→21:54)
[2016-11-28] MEDS ORDERED: INSULIN (NOVOLOG) ASPART 100 UNITS/ML 10ML VIAL ONE ×3 (06:45→21:37)
[2016-11-28] MEDS ORDERED: INSULIN DETEMIR 100 UNITS/ML MDV SQ ONE (06:45)
--- NOTE | 2016-11-28 08:37 | PN ---
[id number] in right lower ext which controlled by Dilaudid non fever chills, no more dysuria no shortness of breath, no chest pain or palpitation OBJECTIVE: Vital Signs Period Temp Pulse Resp BP Sys/Dan Pulse Ox Last 24 Hr 98 F-98.4 F 68-85 18-20 98-112/44-64 96-98 GENERAL: The patient is awake, alert, and fully oriented, in no acute distress. HEAD: Normal with no signs of trauma. EYES: PERRL, extraocular movements intact, sclera anicteric, conjunctiva clear. No ptosis. ENT: Ears normal, nares patent, oropharynx clear without exudates, moist mucous membranes. NECK: Trachea midline, full range of motion, supple. trach collar LUNGS: minimal exp wheezes to auscultation bilaterally, no crackles, no accessory muscle use. HEART: Regular rate and rhythm, S1, S2 without murmur, rub or gallop. ABDOMEN: Soft, diffuse tenderness, nondistended, normoactive bowel sounds, no guarding, no rebound, no hepatosplenomegaly, no masses. EXTREMITIES: 2+ pulses, warm, well-perfused, no edema in left lower ext. right lower ext with short leg splint, Good capillary refill in right toes less than 2 sec, able to moves right foot toes, normal sensation in right lower ext, no color to right toes. tenderness with movement of right foot. NEUROLOGICAL: . Normal speech, gait not observed. PSYCH: Normal mood, normal affect. SKIN: Warm, dry, normal turgor, no rashes or lesions noted Laboratory Results - last 24 hr 11/27/16 11/27/16 11/27/16 06:55 06:55 11:25 Neutrophils % 77.0 Lymphocytes % 18.0 D Monocytes % 5.0 Differential Comment Manual diff done Sodium 142 Potassium 3.8 Chloride 106 Carbon Dioxide 29 Anion Gap 7 L BUN 15 D Creatinine 0.6 D POC Glucometer 197 Random Glucose 110 H D Calcium 8.0 L Phosphorus 2.5 Magnesium 2.3 11/27/16 11/27/16 11/28/16 16:57 21:54 06:36 Neutrophils % Lymphocytes % Monocytes % Differential Comment Sodium Potassium Chloride Carbon Dioxide Anion Gap BUN Creatinine POC Glucometer 309 182 184 Random Glucose Calcium Phosphorus Magnesium Active Medications Generic Name Dose Route Start Last Admin Trade Name Freq PRN Reason Stop Dose Admin Acetaminophen 650 mg 11/26/16 03:01 Tylenol - PO Q6H PRN PAIN Albuterol/Ipratropium 1 amp 11/26/16 03:15 11/27/16 10:14 Duoneb - NEB 1 amp Q4H PRN Administration Alprazolam 0.25 mg 11/26/16 10:00 11/27/16 21:14 Xanax - PO 0.25 mg BID EMMY Administration Baclofen 20 mg 11/26/16 06:00 11/28/16 05:19 Lioresal - PO 20 mg TID EMMY Administration Budesonide/Formoterol Fumarate 2 puff 11/26/16 10:00 11/27/16 21:14 Symbicort 160/4.5mcg - IH 2 puff BID EMMY Administration Cholecalciferol 2,000 unit 11/26/16 10:00 11/27/16 09:11 Vitamin D3 - PO 2,000 unit DAILY EMMY Administration Diltiazem HCl 60 mg 11/26/16 06:00 11/28/16 05:19 Cardizem - PO 60 mg Q6HPO EMMY Administration Docusate Sodium 300 mg 11/26/16 22:00 11/27/16 21:12 Colace - PO 300 mg HS EMMY Administration Doxepin HCl 25 mg 11/26/16 22:00 11/27/16 21:13 Sinequan - PO 25 mg HS EMMY Administration Eletriptan 40 mg 11/26/16 03:01 Relpax - PO DAILY PRN HEADACHE Gabapentin 300 mg 11/26/16 06:00 11/28/16 05:20 Neurontin - PO 300 mg TID EMMY Administration Heparin Sodium (Porcine) 5,000 unit 11/26/16 06:00 11/28/16 05:19 Heparin - SQ 5,000 unit TID [facility] Administration Hydromorphone HCl 1 mg 11/26/16 03:20 11/28/16 05:19 Dilaudid Injection - IVPB 1 mg Q4H PRN Administration PAIN Sodium Chloride 1,000 mls @ 125 mls/hr 11/25/16 20:30 11/27/16 21:15 Normal Saline - IV Not Given ASDIR [facility] Insulin Aspart 1 vial 11/26/16 07:00 11/28/16 06:39 Novolog Vial Sliding Scale - SQ 2 units ACHS EMMY Administration Protocol Insulin Detemir 5 units 11/26/16 07:00 11/28/16 06:39 Levemir Vial SQ 5 units BIDI EMMY Administration Levothyroxine Sodium 25 mcg 11/26/16 07:00 11/27/16 06:21 Synthroid - PO 25 mcg DAILY@0700 EMMY Administration Magnesium Oxide 400 mg 11/26/16 10:00 11/27/16 21:14 Mag-Ox - PO 400 mg BID EMMY Administration Metoprolol Tartrate 25 mg 11/26/16 06:00 11/28/16 05:20 Lopressor - PO 25 mg TID EMMY Administration Multivitamins/Minerals/Vitamin C 1 tab 11/26/16 10:00 11/27/16 09:11 Tab-A-Vit - PO 1 tab DAILY EMMY Administration Ondansetron HCl 4 mg 11/26/16 03:01 Zofran - PO Q4H PRN NAUSEA Pancrelipase 3 cap 11/26/16 08:00 11/27/16 18:[address] 6,000 Units Capsule PO Not Given TIDCM [facility] Pantoprazole Sodium 40 mg 11/26/16 10:00 11/27/16 21:14 Protonix - PO 40 mg BID EMMY Administration Polyethylene Glycol 17 gm 11/26/16 10:00 11/27/16 16:03 Miralax (For Daily Use) - PO 17 gm DAILY EMMY Administration Potassium Phos/Sodium Phos 1 packet 11/26/16 10:00 11/27/16 09:10 Phos-Nak Packet - PO Not Given DAILY EMMY Prednisone 30 mg 11/28/16 10:00 Deltasone - PO 12/01/16 09:59 DAILY EMMY Prednisone 10 mg 12/04/16 10:00 Deltasone - PO 12/07/16 09:59 DAILY EMMY Prednisone 40 mg 11/26/16 10:00 11/27/16 09:10 Deltasone - PO 11/28/16 09:59 40 mg DAILY EMMY Administration Prednisone 20 mg 12/01/16 10:00 Deltasone - PO 12/04/16 09:59 DAILY EMMY Roflumilast 500 mcg 11/26/16 10:00 11/27/16 12:29 Daliresp - PO 500 mcg DAILY EMMY Administration Senna 2 tab 11/26/16 22:00 11/27/16 21:14 Senna - PO 2 tab HS EMMY Administration Zolpidem Tartrate 10 mg 11/27/16 22:04 11/27/16 22:35 Ambien - PO 10 mg HS PRN Administration INSOMNIA CBC, BMP 11/27/16 06:55 11/27/16 06:55 ASSESSMENT/PLAN: Xray hip and Pelvis 11/25/15: Suboptimal examination due to osteopenia and likely due to the patient's body habitus without gross evidence of a fracture or dislocation. Correlate clinically for further evaluation. CXR 11/25/15: Since prior chest x-ray dated 11/01/2016, and allowing for the difference in technique, the cardiac silhouette remains borderline in size. There are increased interstitial lung markings, bilaterally likely due to technique. No focal infiltrates are identified. Extensive hardware again noted in the thoracic spine. Tracheostomy tube is in satisfactory position Xray Right Ankle: Slightly displaced medial and lateral malleolar fracture. Severe osteopenia. ASSESSMENT/PLAN: 50 year old female from of [facility], with pmh PAF, HTN, diabetes, COPD, asthma, tracheostomy, uterine cancer, anxiety, depression, bipolar disorder, abdominal abscess presented to ED s/p fall while in rehab. Pt was found to have a right malleolar fracture on xray foot. Right lateral and medial malleolar fracture Pt was seen by Kayleigh POURER yesterday Short leg splint placed to right lower ext placed Ortho Follow up with Dr Castorena in 10-14 days in their office Non weight bearing to right lower ext Ice, rest and elevate the ankle as needed Dilaudid 1mg q4h prn for pain Vitamin D UTI Pt has 3+ leuk est, + nitrite, urine wbc lactic acid 1.5, wbc 15.9 WBC could be elevated because of Steroid use pending urine culture Blood culture ordered consider repeating UA Dr Williamson consulted for ID Pt have h/o urine pseudomonas and enterobacter aerogenes in the last 2 months sensitive to zosyn Zosyn was given in the last [address] Williamson, No antibiotics until blood culture result COPD with chronic hypoxic failure pt w improving exp wheezes Pulmonary on case On trach collar keep O2 sat >88% Continue Daliresp on Prednisone taper currently at 40mg po daily for 3 day, Then will decrease to 30mg daily for 3 days. then 20mg qd for 3 days, then 10mg qd for 3 days then dc Continue bronchodilators Anxiety disorder/ Depression continue Xanax Continue Sinequan Hypothryoidism continue synthroid DM2 Novolog sliding scale levemir 5 u Sq BID PAF currently in Sinus rhythm on cardizem Po On lopressor Po HTN on cardizem Po On lopressor Po Hyperlipidemia consider statins FEN Fluid: None Electrolytes: no abnormalities Nutrition: Diabetic diet Prophylaxis DVT: SCD, heparin SQ Deconditionning : PT BID Disposition: Keep in medsurg until urine culture result Visit type - Emergency Visit Emergency Visit: Yes ED Registration Date: 11/25/16 Care time: The patient presented to the Emergency Department on the above date and was hospitalized for further evaluation of their emergent condition. - New Patient This patient is new to me today: No - Critical Care Critical Care patient: No - Discharge Referral Referred to [facility] Med P.C.: No
[2016-11-28] MEDS: LIPASE/PROTEASE/AMYLASE 6,000 UNIT CAPSULE PO SCH ×3 (08:49→18:23)
[2016-11-28] MEDS: ROFLUMILAST 500 MCG TABLET PO SCH (09:14)
[2016-11-28] MEDS: predniSONE 10 MG TABLET (UD) PO SCH (09:14)
[2016-11-28] MEDS: MAGNESIUM OXIDE 400 MG TABLET (FP) PO SCH ×2 (09:14→21:51)
[2016-11-28] MEDS: PANTOPRAZOLE 40 MG TABLET (FP) PO SCH ×2 (09:16→21:51)
[2016-11-28] MEDS: NAPH,MB-DB/K PH,MBDB POWDER PACKET PO SCH (09:16)
[2016-11-28] MEDS: MULTIVITAMINS (DAILY MVI) TABLET (FP) PO SCH (09:16)
[2016-11-28] MEDS: POLYETHYLENE GLYCOL 3350 119 GM BTL PO SCH (09:16)
[2016-11-28] MEDS: CHOLECALCIFEROL (VITAMIN D3) 1,000 UNIT TABLET (FP) PO SCH (09:16)
[2016-11-28] MEDS: ALPRAZolam 0.25 MG TABLET PO SCH ×2 (09:16→21:51)
[2016-11-28] MEDS: BUDESONIDE/FORMETEROL FUMARATE 160/4.5 mcg INHALER IH SCH ×2 (09:26→21:52)
--- NOTE | 2016-11-28 10:16 | DS ---
Physical Exam: SUBJECTIVE: Patient seen and examined Pt is awake alert and oriented to time, place and person Pt has no complaint except for pain in right lower ext which controlled by Dilaudid non fever chills, no more dysuria no shortness of breath, no chest pain or palpitation OBJECTIVE: Vital Signs Period Temp Pulse Resp BP Sys/Dan Pulse Ox Last 24 Hr 98.0 F-98.4 F 69-85 18-20 98-112/44-64 98 PHYSICAL EXAM GENERAL: The patient is awake, alert, and fully oriented, in no acute distress. HEAD: Normal with no signs of trauma. EYES: PERRL, extraocular movements intact, sclera anicteric, conjunctiva clear. No ptosis. ENT: Ears normal, nares patent, oropharynx clear without exudates, moist mucous membranes. NECK: Trachea midline, full range of motion, supple. trach collar LUNGS: minimal exp wheezes to auscultation bilaterally, no crackles, no accessory muscle use. HEART: Regular rate and rhythm, S1, S2 without murmur, rub or gallop. ABDOMEN: Soft, diffuse tenderness, nondistended, normoactive bowel sounds, no guarding, no rebound, no hepatosplenomegaly, no masses. EXTREMITIES: 2+ pulses, warm, well-perfused, no edema in left lower ext. right lower ext with short leg splint, Good capillary refill in right toes less than 2 sec, able to moves right foot toes, normal sensation in right lower ext, no color to right toes. tenderness with movement of right foot. NEUROLOGICAL: . Normal speech, gait not observed. PSYCH: Normal mood, normal affect. SKIN: Warm, dry, normal turgor, no rashes or lesions noted LABS Laboratory Results - last 24 hr 11/27/16 11/27/16 11/27/16 11:25 16:57 21:54 POC Glucometer 197 309 182 11/28/16 06:36 POC Glucometer 184 CBC, BMP 11/28/16 10:45 11/27/16 06:55 Xray hip and Pelvis 11/25/15: Suboptimal examination due to osteopenia and likely due to the patient's body habitus without gross evidence of a fracture or dislocation. Correlate clinically for further evaluation. CXR 11/25/15: Since prior chest x-ray dated 11/01/2016, and allowing for the difference in technique, the cardiac silhouette remains borderline in size. There are increased interstitial lung markings, bilaterally likely due to technique. No focal infiltrates are identified. Extensive hardware again noted in the thoracic spine. Tracheostomy tube is in satisfactory position Xray Right Ankle: Slightly displaced medial and lateral malleolar fracture. Severe osteopenia. HOSPITAL COURSE: Date of Admission:11/25/16 This is a 50 year old female with a PMH of Afib, DM, HTN, HLD, COPD-oxygen dependent, 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 She was found to have right lateral and medial malleolar fracture. On exam, pt with c/o ankle pain as well as concerned about her nighttime medications that she missed. ER course was notable for: (1) xray + malleolar fracture 50 year old female from of [facility], with pmh PAF, HTN, diabetes, COPD, asthma, tracheostomy, uterine cancer, anxiety, depression, bipolar disorder, abdominal abscess presented to ED s/p fall while in rehab. Pt was found to have a right malleolar fracture on xray foot. Right lateral and medial malleolar fracture Pt was seen by Kayleigh [employer] MANA[employer] on admission, Short leg splint placed to right lower ext placed, Ortho Follow up with Dr Castorena in 10-14 days in their office , Non weight bearing to right lower ext, Ice, rest and elevate the ankle as needed, was on Dilaudid 1mg q4h prn for pain, will discharge with dilaudid PO 2 mg q4h. Started on Vitamin D PO UTI vs Colonization Pt has 3+ leuk est, + nitrite, urine wbc, lactic acid 1.5, wbc 15.9, WBC could be elevated because of Steroid use, urine culture done was contaminated. will repeat UA and Urine culture. Zosyn IV was given for [address] Williamson consulted for ID. Pt have h/o urine pseudomonas and enterobacter aerogenes in the last 2 months sensitive to zosyn. Per Dr Williamson, No antibiotics until blood culture result. COPD with chronic hypoxic failure pt w improved with no more exp wheezes. Pulmonary on case. On trach collar. keep O2 sat >88%. Continue Daliresp. on Prednisone taper currently at 40mg po daily for 3 day. Then will decrease to 30mg daily for 3 days. then 20mg qd for 3 days, then 10mg qd for 3 days then dc Continue bronchodilators. Will given Ventolin inhaler at bedside. Follow up with Pulmonology Anemia Pt denies chest pain, shortness of breath, no lightheadedness, no dizziness, no fatigue or weakness, no hematuria, no melena, no hematchezia, no hemoptysis. Pt has had previous hbg at 7.8 or 7.9. No t Anxiety disorder/ Depression continue Xanax. Continue Sinequan Hypothryoidism continue synthroid DM2 Continue Novolog sliding scale. levemir 5 u Sq BID PAF currently in Sinus rhythm, on cardizem Po, On lopressor Po. No anticoagulation due h/o of GI bleed and high risk for fall. HTN on cardizem Po, On lopressor Po. Date of Discharge: 11/28/16 Minutes to complete discharge: 35 Discharge Summary Reason For Visit: CLOSED RIGHT HIP FRACTURE Current Active Problems Abdominal pain (Acute) Acute and chronic respiratory failure (Acute) Acute exacerbation of chronic low back pain (Acute) Acute hyperkalemia (Acute) Anxiety (Acute) COPD (chronic obstructive pulmonary disease) case management patient (Acute) Chest pain (Acute) Chronic pain (Acute) Closed right hip fracture (Acute) Dilated cbd, acquired (Acute) Drug abuse and dependence (Acute) Gallstones (Acute) H/O cancer of uterus (Acute) Hyperkalemia (Acute) Hyponatremia (Acute) LLQ abdominal pain (Acute) LUQ abdominal pain (Acute) Lactic acidosis (Acute) Nausea & vomiting (Acute) Opioid dependence (Acute) Pyelonephritis (Acute) Tachycardia with hypertension (Acute) Vomiting (Acute) Bipolar 2 disorder (Chronic) Chronic back pain (Chronic) Chronic respiratory failure with hypoxia (Chronic) Depression with anxiety (Chronic) Gastritis (Chronic) HTN (hypertension) (Chronic) Hyperlipidemia (Chronic) Obesity (BMI 30.0-34.9) (Chronic) Paroxysmal atrial fibrillation (Chronic) - Instructions Diet, Activity, Other Instructions: Discharge To SNF resume home medication resume home activity Follow up with primary care physician within 1 week Follow up with truck and transport mechanic within 1 week OOB with assist only Pt was seen by Kayleigh FOSS during this admission, Short leg splint placed to right lower ext placed, Ortho Follow up with Dr Castorena in 10-14 days in their office , Non weight bearing to right lower ext, Ice, rest and elevate the ankle as needed. Referrals: [facility] [Outside] Bhavik Srivastava MD [Staff Physician] - Arnav Castorena MD [Staff Physician] - 2 Weeks Cornelio Salas MD [Primary Care Provider] - Disposition: [facility] - Home Medications Comprehensive Discharge Medication List: Ambulatory Orders Acetaminophen [Tylenol .Regular Strength -] 650 mg PO Q6H PRN #0 tablet Levothyroxine [Synthroid -] 25 mcg PO DAILY@0700 tablet 06/05/16 Albuterol 2.5/Ipratropium 0.5 [Duoneb -] 1 amp NEB Q4HPO amp 09/17/16 Alprazolam [Xanax] 0.25 mg PO BID tablet MDD 2 09/17/16 Diltiazem [Cardizem -] 60 mg PO Q6HPO tablet 09/17/16 Magnesium Oxide [Mag-Ox -] 400 mg PO BID tablet 09/17/16 Naph,Mb-Db/K pH,Mbdb [PHOS-NaK PACKET -] 1 packet PO BID pow 09/17/16 Albuterol Sulfate Inhaler - [Ventolin HFA Inhaler -] 2 puff IH Q4H PRN #0 inhaler 09/23/16 Baclofen [Lioresal -] 20 mg PO TID 10/01/16 Docusate Sodium [Colace -] 300 mg PO HS 10/01/16 Budesonide/Formeterol Fumarate [SYMBICORT 160/4.5mcg -] 2 inh PO BID 11/01/16 Diphenhydramine [Benadryl 12.5 MG/5 ML Oral Solution -] 25 mg PO Q4H PRN Doxepin HCl [Sinequan -] 25 mg PO HS 11/01/16 Eletriptan Hydrobromide [Relpax -] 40 mg PO PRN 11/01/16 Gabapentin [Neurontin -] 300 mg PO TID 11/01/16 Metoprolol Tartrate [Lopressor -] 25 mg PO TID 11/01/16 Omeprazole 40 mg PO BID 11/01/16 Polyethylene Glycol 3350 [Miralax 119 gm Btl -] 17 gm PO DAILY 11/01/16 Roflumilast [Daliresp] 500 mcg PO DAILY 11/01/16 Sennosides [Senna] 2 tab PO HS 11/01/16 Zolpidem Tartrate [Ambien] 10 mg PO HS PRN MDD 1 11/01/16 Lipase/Protease/Amylase [Eamon Turner 6,000 Units Capsule] 3 cap PO TIDCM capsule. 11/07/16 Insulin Sliding Scale [Novolog Vial Sliding Scale -] 0 units SQ ACHS PRN Doxepin HCl [Sinequan -] 25 mg PO HS capsule 11/20/16 Hydromorphone [Dilaudid -] 2 mg PO Q8H PRN #0 tablet MDD 3 11/20/16 Lactobacillus Acidophilus [Bacid -] 1 tab PO BID tab 11/20/16 Loperamide HCl [Imodium -] 2 mg PO Q8H PRN #0 capsule 11/20/16 Metoclopramide HCl [Reglan -] 10 mg PO TIDAC tablet 11/20/16 Multivitamins [Multivit ([facility] Formulary)] 1 tab PO DAILY tab 11/20/16 Ondansetron [Zofran -] 4 mg PO Q4H PRN #0 tablet 11/20/16 Prednisone [Deltasone -] 60 mg PO DAILY #20 tablet 11/20/16 Zinc Oxide 1 applic TP BID tube 11/20/16 Insulin (Levemir) [Levemir Vial] 5 unit SQ DAILY #1 vial 11/21/16 This patient is new to me today: Yes Date on this admission: 11/30/16 Emergency Visit: No Critical Care patient: No - Discharge Referral Referred to [facility] Med P.C.: No
--- NOTE | 2016-11-28 10:29 | PN ---
Teaching Attending Note Name of Resident: John Sanchez ATTENDING PHYSICIAN STATEMENT I saw and evaluated the patient. I reviewed the resident's note and discussed the case with the resident. I agree with the resident's findings and plan as documented. SUBJECTIVE: Patient is comfortable with no acute distress, as per patient NO BM since thursday. no fever or chills, no shortness of breath, no nausea or vomiting. Also c/o of having chest pain last night that told the nurse as per patient. OBJECTIVE: Vital Signs Temperature 98.4 F 11/28/16 07:05 Pulse Rate 82 11/28/16 07:05 Respiratory Rate 18 11/28/16 07:05 Blood Pressure 112/64 11/28/16 07:05 O2 Sat by Pulse Oximetry (%) 98 11/27/16 10:16 GENERAL: The patient is awake, alert, and fully oriented, in no acute distress. HEAD: Normal with no signs of trauma. EYES: PERRL, extraocular movements intact, sclera anicteric, conjunctiva clear. ENT: Ears normal, nares patent, oropharynx clear without exudates, moist mucous membranes. NECK: Trachea midline, full range of motion, supple. trach collar LUNGS: minimal exp wheezes to auscultation bilaterally, no crackles, no accessory muscle use. HEART: Regular rate and rhythm, S1, S2 positive,no rub or gallop. ABDOMEN: Soft, no tenderness, nondistended, normoactive bowel sounds, no guarding, no rebound, no masses appreciated. EXTREMITIES: 2+ pulses, warm, well-perfused, no edema in left lower ext. right lower ext. positiv for splint, Good capillary refill able to move right foot toes NEUROLOGICAL: . Normal speech, gait not observed. PSYCH: Normal mood, normal affect. SKIN: Warm, dry, normal turgor, no rashes or lesions noted CBCD WBC 9.8 K/mm3 (4.0-10.0) D 11/27/16 06:55 RBC 3.05 M/mm3 (3.60-5.2) L 11/27/16 06:55 Hgb 8.2 GM/dL (10.7-15.3) L D 11/27/16 06:55 Hct 25.7 % (32.4-45.2) L D 11/27/16 06:55 MCV 84.0 fl (80-96) 11/27/16 06:55 MCHC 32.0 g/dl (32.0-36.0) 11/27/16 06:55 RDW 18.4 % (11.6-15.6) H 11/27/16 06:55 Plt Count 294 K/MM3 (134-434) D 11/27/16 06:55 MPV 8.9 fl (7.5-11.1) 11/27/16 06:55 CMP Sodium 142 mmol/L (136-145) 11/27/16 06:55 Potassium 3.8 mmol/L (3.5-5.1) 11/27/16 06:55 Chloride 106 mmol/L (98-107) 11/27/16 06:55 Carbon Dioxide 29 mmol/L (21-32) 11/27/16 06:55 Anion Gap 7 (8-16) L 11/27/16 06:55 BUN 15 mg/dL (7-18) D 11/27/16 06:55 Creatinine 0.6 mg/dL (0.55-1.02) D 11/27/16 06:55 Creat Clearance w eGFR > 60 (>60) 11/25/16 21:15 Random Glucose 110 mg/dL (74-106) H D 11/27/16 06:55 Calcium 8.0 mg/dL (8.5-10.1) L 11/27/16 06:55 Total Bilirubin 0.1 mg/dL (0.2-1.0) L D 11/25/16 21:15 AST 14 U/L (15-37) L D 11/25/16 21:15 ALT 36 U/L (12-78) D 11/25/16 21:15 Alkaline Phosphatase 83 U/L (45-117) 11/25/16 21:15 Total Protein 6.1 g/dl (6.4-8.2) L 11/25/16 21:15 Albumin 2.8 g/dl (3.4-5.0) L 11/25/16 21:15 Current Medications Generic Name Dose Route Start Last Admin Trade Name Freq PRN Reason Stop Dose Admin Acetaminophen 650 mg 11/26/16 03:01 Tylenol - PO Q6H PRN PAIN Albuterol/Ipratropium 1 amp 11/26/16 03:15 11/27/16 10:14 Duoneb - NEB 1 amp Q4H PRN Administration Alprazolam 0.25 mg 11/26/16 10:00 11/28/16 09:16 Xanax - PO 0.25 mg BID EMMY Administration Baclofen 20 mg 11/26/16 06:00 11/28/16 05:19 Lioresal - PO 20 mg TID EMMY Administration Budesonide/Formoterol Fumarate 2 puff 11/26/16 10:00 11/28/16 09:26 Symbicort 160/4.5mcg - IH 2 puff BID EMMY Administration Cholecalciferol 2,000 unit 11/26/16 10:00 11/28/16 09:16 Vitamin D3 - PO 2,000 unit DAILY EMMY Administration Diltiazem HCl 60 mg 11/26/16 06:00 11/28/16 05:19 Cardizem - PO 60 mg Q6HPO EMMY Administration Docusate Sodium 300 mg 11/26/16 22:00 11/27/16 21:12 Colace - PO 300 mg HS EMMY Administration Doxepin HCl 25 mg 11/26/16 22:00 11/27/16 21:13 Sinequan - PO 25 mg HS EMMY Administration Eletriptan 40 mg 11/26/16 03:01 Relpax - PO DAILY PRN HEADACHE Gabapentin 300 mg 11/26/16 06:00 11/28/16 05:20 Neurontin - PO 300 mg TID EMMY Administration Heparin Sodium (Porcine) 5,000 unit 11/26/16 06:00 11/28/16 05:19 Heparin - SQ 5,000 unit TID EMMY Administration Hydromorphone HCl 1 mg 11/26/16 03:20 11/28/16 09:17 Dilaudid Injection - IVPB 1 mg Q4H PRN Administration PAIN Sodium Chloride 1,000 mls @ 125 mls/hr 11/25/16 20:30 11/27/16 21:15 Normal Saline - IV Not Given ASDIR MEMY Insulin Aspart 1 vial 11/26/16 07:00 11/28/16 06:39 Novolog Vial Sliding Scale - SQ 2 units ACHS EMMY Administration Protocol Insulin Detemir 5 units 11/26/16 07:00 11/28/16 06:39 Levemir Vial SQ 5 units BIDI EMMY Administration Levothyroxine Sodium 25 mcg 11/26/16 07:00 11/27/16 06:21 Synthroid - PO 25 mcg DAILY@0700 EMMY Administration Magnesium Oxide 400 mg 11/26/16 10:00 11/28/16 09:14 Mag-Ox - PO 400 mg BID EMMY Administration Metoprolol Tartrate 25 mg 11/26/16 06:00 11/28/16 05:20 Lopressor - PO 25 mg TID EMMY Administration Multivitamins/Minerals/Vitamin C 1 tab 11/26/16 10:00 11/28/16 09:16 Tab-A-Vit - PO 1 tab DAILY EMMY Administration Ondansetron HCl 4 mg 11/26/16 03:01 Zofran - PO Q4H PRN NAUSEA Pancrelipase 3 cap 11/26/16 08:00 11/28/16 08:49 Eamon Turner 6,000 Units Capsule PO Not Given TIDCM EMMY Pantoprazole Sodium 40 mg 11/26/16 10:00 11/28/16 09:16 Protonix - PO 40 mg BID EMMY Administration Polyethylene Glycol 17 gm 11/26/16 10:00 11/28/16 09:16 Miralax (For Daily Use) - PO 17 gm DAILY EMMY Administration Potassium Phos/Sodium Phos 1 packet 11/26/16 10:00 11/28/16 09:16 Phos-Nak Packet - PO 1 packet DAILY EMMY Administration Prednisone 30 mg 11/28/16 10:00 11/28/16 09:14 Deltasone - PO 12/01/16 09:59 30 mg DAILY EMMY Administration Prednisone 10 mg 12/04/16 10:00 Deltasone - PO 12/07/16 09:59 DAILY EMMY Prednisone 20 mg 12/01/16 10:00 Deltasone - PO 12/04/16 09:59 DAILY EMMY Roflumilast 500 mcg 11/26/16 10:00 11/28/16 09:14 Daliresp - PO 500 mcg DAILY EMMY Administration Senna 2 tab 11/26/16 22:00 11/27/16 21:14 Senna - PO 2 tab HS EMMY Administration Zolpidem Tartrate 10 mg 11/27/16 22:04 11/27/16 22:35 Ambien - PO 10 mg HS PRN Administration INSOMNIA Medication Instructions Recorded Acetaminophen [Tylenol .Regular 650 mg PO Q6H PRN #0 tablet 06/05/16 Strength -] Levothyroxine [Synthroid -] 25 mcg PO DAILY@0700 tablet 06/05/16 Albuterol 2.5/Ipratropium 0.5 1 amp NEB Q4HPO amp 09/17/16 [Duoneb -] Alprazolam [Xanax] 0.25 mg PO BID tablet MDD 2 09/17/16 Diltiazem [Cardizem -] 60 mg PO Q6HPO tablet 09/17/16 Magnesium Oxide [Mag-Ox -] 400 mg PO BID tablet 09/17/16 Naph,Mb-Db/K pH,Mbdb [PHOS-NaK 1 packet PO BID pow 09/17/16 PACKET -] Albuterol Sulfate Inhaler - 2 puff IH Q4H PRN #0 inhaler 09/23/16 [Ventolin HFA Inhaler -] Baclofen [Lioresal -] 20 mg PO TID 10/01/16 Docusate Sodium [Colace -] 300 mg PO HS 10/01/16 Budesonide/Formeterol Fumarate 2 inh PO BID 11/01/16 [SYMBICORT 160/4.5mcg -] Diphenhydramine [Benadryl 12.5 25 mg PO Q4H PRN 11/01/16 MG/5 ML Oral Solution -] Doxepin HCl [Sinequan -] 25 mg PO HS 11/01/16 Eletriptan Hydrobromide [Relpax -] 40 mg PO PRN 11/01/16 Gabapentin [Neurontin -] 300 mg PO TID 11/01/16 Metoprolol Tartrate [Lopressor -] 25 mg PO TID 11/01/16 Omeprazole 40 mg PO BID 11/01/16 Polyethylene Glycol 3350 [Miralax 17 gm PO DAILY 11/01/16 119 gm Btl -] Roflumilast [Daliresp] 500 mcg PO DAILY 11/01/16 Sennosides [Senna] 2 tab PO HS 11/01/16 Zolpidem Tartrate [Ambien] 10 mg PO HS PRN MDD 1 11/01/16 Lipase/Protease/Amylase [Creon Dr 3 cap PO TIDCM capsule. 11/07/16 6,000 Units Capsule] Insulin Sliding Scale [Novolog 0 units SQ ACHS PRN 11/08/16 Vial Sliding Scale -] Doxepin HCl [Sinequan -] 25 mg PO HS capsule 11/20/16 Hydromorphone [Dilaudid -] 2 mg PO Q8H PRN #0 tablet MDD 3 11/20/16 Lactobacillus Acidophilus [Bacid -] 1 tab PO BID tab 11/20/16 Loperamide HCl [Imodium -] 2 mg PO Q8H PRN #0 capsule 11/20/16 Metoclopramide HCl [Reglan -] 10 mg PO TIDAC tablet 11/20/16 Multivitamins [Multivit ([facility] 1 tab PO DAILY tab 11/20/16 Formulary)] Ondansetron [Zofran -] 4 mg PO Q4H PRN #0 tablet 11/20/16 Prednisone [Deltasone -] 60 mg PO DAILY #20 tablet 11/20/16 Zinc Oxide 1 applic TP BID tube 11/20/16 Insulin (Levemir) [Levemir Vial] 5 unit SQ DAILY #1 vial 11/21/16 ASSESSMENT AND PLAN: 50yF with PMH of Afib, DM, HTN, HLD, COPD-oxygen dependent, 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 She is being admitted for bimalleolar fracture. # Chest pain last night ; will order troponin and EKG now, also repeat UA,Urine culture clean catch # Acute Bimalleolar fracture of right ankle seen my ortho, splinted in ED. continues to have pain on IV dilaudid, will switch to po Dilaudid 2mg q6hr prn pain # Acute leukocytosis/UTI off IV antibitoic was discontinued by ID;. s/ p Zosyn x 2 doses. no signs of infection #Atrial fibrillation not on AC due to having GI Bleeds, now in Sinus rhythm.cont current meds. cardizem, lopressor # HTN cont current meds # COPD-oxygen dependent , and on taper dose steroid due to COPD exac, cont. home meds albuterol inh.at bedside. DVT PPX : heparin 5000 units TID will dc post troponin if negative, ekg no changes.
[2016-11-28] MEDS ORDERED: HYDROmorphone HCL 2 MG TABLET PO PRN (11:13)
[2016-11-28 11:27] LABS: TROPONIN I < 0.02 ng/ml (0.00-0.05)
--- NOTE | 2016-11-28 12:14 | EKG ---
Test Reason : Blood Pressure : / mmHG Vent. Rate : 076 BPM Atrial Rate : 076 BPM P-R Int : 182 ms QRS Dur : 082 ms QT Int : 380 ms P-R-T Axes : 023 016 051 degrees QTc Int : 427 ms NORMAL SINUS RHYTHM NORMAL ECG Confirmed by DENISHA SERRANO MD ([id number]) on 11/28/2016 12:14:37 PM Referred By: MARISA HERNANDEZ Confirmed By:DENISHA SERRANO MD
[2016-11-28 12:34] LABS: MCHC 31.9 g/dl (32.0-36.0); MEAN CELL VOLUME 84.9 fl (80-96); MEAN PLT VOLUME 8.6 fl (7.5-11.1); PLATELET COUNT 244 K/MM3 (134-434); RDW 18.4 % (11.6-15.6)
[2016-11-28 12:34] LABS: URINE APPEARANCE CLEAR; URINE BILIRUBIN NEGATIVE (NEGATIVE); URINE COLOR STRAW; URINE GLUCOSE (UA) NEGATIVE (NEGATIVE); URINE KETONE NEGATIVE (NEGATIVE); URINE NITRITE NEGATIVE (NEGATIVE); URINE PROTEIN NEGATIVE (NEGATIVE); URINE UROBILINOGEN NEGATIVE E.U./dl (0.2-1.0)
[2016-11-28 12:42] LABS: URINE BLOOD 1+ (NEGATIVE); URINE LEUK ESTERASE 1+ (NEGATIVE)
[2016-11-28 12:54] LABS: URINE BACTERIA FEW /hpf (NONE SEEN); URINE MUCUS FEW; URINE RBC 6 /hpf (0-3); URINE WBC 14 /hpf (3-5)
[2016-11-28] MEDS: DOCUSATE SODIUM 100 MG CAPSULE (FP) PO SCH ×2 (13:16→21:52)
[2016-11-28] MEDS: LEVOTHYROXINE NA 25 MCG TABLET (FP) PO SCH (13:17)
[2016-11-28] MEDS ORDERED: HYDROmorphone HCL 2 MG TABLET PO ONE (14:36)
--- NOTE | 2016-11-28 15:03 | PN ---
Progress Note, Physician History of Present Illness: stable main issues pain in the leg - Current Medication List Current Medications: Active Medications Acetaminophen (Tylenol -) 650 mg PO Q6H PRN PRN Reason: PAIN Albuterol/Ipratropium (Duoneb -) 1 amp NEB Q4H PRN Last Admin: 11/27/16 10:14 Dose: 1 amp Alprazolam (Xanax -) 0.25 mg PO BID [facility] Last Admin: 11/28/16 09:16 Dose: 0.25 mg Baclofen (Lioresal -) 20 mg PO TID [facility] Last Admin: 11/28/16 13:16 Dose: 20 mg Budesonide/Formoterol Fumarate (Symbicort 160/4.5mcg -) 2 puff IH BID [facility] Last Admin: 11/28/16 09:26 Dose: 2 puff Cholecalciferol (Vitamin D3 -) 2,000 unit PO DAILY [facility] Last Admin: 11/28/16 09:16 Dose: 2,000 unit Diltiazem HCl (Cardizem -) 60 mg PO Q6HPO [facility] Last Admin: 11/28/16 12:37 Dose: 60 mg Docusate Sodium (Colace -) 100 mg PO TID [facility] Last Admin: 11/28/16 13:16 Dose: 100 mg Doxepin HCl (Sinequan -) 25 mg PO HS [facility] Last Admin: 11/27/16 21:13 Dose: 25 mg Eletriptan (Relpax -) 40 mg PO DAILY PRN PRN Reason: HEADACHE Gabapentin (Neurontin -) 300 mg PO TID [facility] Last Admin: 11/28/16 13:16 Dose: 300 mg Heparin Sodium (Porcine) (Heparin -) 5,000 unit SQ TID [facility] Last Admin: 11/28/16 13:17 Dose: 5,000 unit Hydromorphone HCl (Dilaudid -) 4 mg PO Q4H PRN PRN Reason: PAIN Hydromorphone HCl (Dilaudid -) 2 mg PO ONCE ONE Stop: 11/28/16 14:37 Insulin Aspart (Novolog Vial Sliding Scale -) 1 vial SQ ACHS [facility] PRN Reason: Protocol Last Admin: 11/28/16 12:38 Dose: 2 units Insulin Detemir (Levemir Vial) 5 units SQ BIDI [facility] Last Admin: 11/28/16 06:39 Dose: 5 units Levothyroxine Sodium (Synthroid -) 25 mcg PO DAILY@0700 [facility] Last Admin: 11/28/16 13:17 Dose: Not Given Magnesium Oxide (Mag-Ox -) 400 mg PO BID [facility] Last Admin: 11/28/16 09:14 Dose: 400 mg Metoprolol Tartrate (Lopressor -) 25 mg PO TID [facility] Last Admin: 11/28/16 13:18 Dose: 25 mg Multivitamins/Minerals/Vitamin C (Tab-A-Vit -) 1 tab PO DAILY [facility] Last Admin: 11/28/16 09:16 Dose: 1 tab Ondansetron HCl (Zofran -) 4 mg PO Q4H PRN PRN Reason: NAUSEA Pancrelipase (Creon Dr 6,000 Units Capsule) 3 cap PO TIDCM [facility] Last Admin: 11/28/16 12:37 Dose: 3 cap Pantoprazole Sodium (Protonix -) 40 mg PO BID [facility] Last Admin: 11/28/16 09:16 Dose: 40 mg Polyethylene Glycol (Miralax (For Daily Use) -) 17 gm PO DAILY [facility] Last Admin: 11/28/16 09:16 Dose: 17 gm Potassium Phos/Sodium Phos (Phos-Nak Packet -) 1 packet PO DAILY [facility] Last Admin: 11/28/16 09:16 Dose: 1 packet Prednisone (Deltasone -) 30 mg PO DAILY [facility] Stop: 12/01/16 09:59 Last Admin: 11/28/16 09:14 Dose: 30 mg Prednisone (Deltasone -) 10 mg PO DAILY [facility] Stop: 12/07/16 09:59 Prednisone (Deltasone -) 20 mg PO DAILY [facility] Stop: 12/04/16 09:59 Roflumilast (Daliresp -) 500 mcg PO DAILY [facility] Last Admin: 11/28/16 09:14 Dose: 500 mcg Senna (Senna -) 2 tab PO HS [facility] Last Admin: 11/27/16 21:14 Dose: 2 tab Zolpidem Tartrate (Ambien -) 10 mg PO HS PRN PRN Reason: INSOMNIA Last Admin: 11/27/16 22:35 Dose: 10 mg - Objective Vital Signs: Vital Signs Temperature 98.4 F 11/28/16 07:05 Pulse Rate 78 11/28/16 11:42 Respiratory Rate 18 11/28/16 07:05 Blood Pressure 112/64 11/28/16 07:05 O2 Sat by Pulse Oximetry (%) 99 11/28/16 11:42 Constitutional: Yes: Calm, Mild Distress Respiratory: Yes: Regular, Other (on trach) Gastrointestinal: Yes: Normal Bowel Sounds, Soft Neurological: Yes: Alert, Oriented Psychiatric: Yes: Alert Labs: CBC, BMP 11/28/16 10:45 11/27/16 06:55 INR, PTT INR 0.96 (0.82-1.09) 11/25/16 21:15 Assessment/Plan 50yF with PMH of Afib, DM, HTN, HLD, COPD-oxygen dependent, 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 She is being admitted for bimalleolar fracture. Bimalleolar fracture leukocytosis/UTI Atrial fibrillation HTN COPD i think her lukocytosis is from the injury plan no abx await for all cx report
[2016-11-28] MEDS: HYDROmorphone HCL 2 MG TABLET PO PRN (20:00)
[2016-11-28] MEDS: ZOLPIDEM TARTRATE 5 MG TABLET PO PRN (21:51)
[2016-11-28] MEDS: SENNOSIDES 8.6MG TABLET (FP) PO SCH (21:52)
[2016-11-28] MEDS: DOXEPIN HCL 25 MG CAPSULE PO SCH (21:52)
[2016-11-28] MEDS: ALBUTEROL SO4 2.5/IPRATROPIUM 0.5 INH SOL 3 ML VIAL.NEB. NEB PRN (22:40)
[2016-11-29] MEDS: dilTIAZem HCL 60 MG TABLET (FP) PO SCH ×2 (00:55→06:42)
[2016-11-29] MEDS: HYDROmorphone HCL 2 MG TABLET PO PRN ×3 (00:55→09:13)
[2016-11-29] MEDS: DOCUSATE SODIUM 100 MG CAPSULE (FP) PO SCH (06:42)
[2016-11-29] MEDS: HEPARIN NA (PORCINE) 5,000 UNITS/ML 1ML VIAL SQ SCH (06:42)
[2016-11-29] MEDS: METOPROLOL TARTRATE 25 MG TABLET (FP) PO SCH (06:42)
[2016-11-29] MEDS: GABAPENTIN 300 MG CAPSULE (FP) PO SCH (06:42)
[2016-11-29] MEDS: INSULIN SLIDING SCALE (NOVOLOG) 1 VIAL SQ SCH (06:42)
[2016-11-29] MEDS: LEVOTHYROXINE NA 25 MCG TABLET (FP) PO SCH (06:42)
[2016-11-29] MEDS: BACLOFEN 10 MG TABLET (FP) PO SCH (06:42)
[2016-11-29] MEDS: INSULIN DETEMIR 100 UNITS/ML MDV SQ SCH (06:43)
[2016-11-29] MEDS ORDERED: INSULIN (NOVOLOG) ASPART 100 UNITS/ML 10ML VIAL ONE (06:57)
[2016-11-29] MEDS ORDERED: PT OWN MED DRAWER 7, Y5N ONE (07:54)
[2016-11-29] MEDS: LIPASE/PROTEASE/AMYLASE 6,000 UNIT CAPSULE PO SCH (08:38)
[2016-11-29 08:55] VITALS: BP 115/54; PULSE 60; TEMP 98.6
[2016-11-29] MEDS: ROFLUMILAST 500 MCG TABLET PO SCH (09:11)
[2016-11-29] MEDS: predniSONE 10 MG TABLET (UD) PO SCH (09:11)
[2016-11-29] MEDS: NAPH,MB-DB/K PH,MBDB POWDER PACKET PO SCH (09:12)
[2016-11-29] MEDS: MULTIVITAMINS (DAILY MVI) TABLET (FP) PO SCH (09:12)
[2016-11-29] MEDS: PANTOPRAZOLE 40 MG TABLET (FP) PO SCH (09:12)
[2016-11-29] MEDS: MAGNESIUM OXIDE 400 MG TABLET (FP) PO SCH (09:12)
[2016-11-29] MEDS: BUDESONIDE/FORMETEROL FUMARATE 160/4.5 mcg INHALER IH SCH (09:12)
[2016-11-29] MEDS: POLYETHYLENE GLYCOL 3350 119 GM BTL PO SCH (09:12)
[2016-11-29] MEDS: CHOLECALCIFEROL (VITAMIN D3) 1,000 UNIT TABLET (FP) PO SCH (09:12)
[2016-11-29] MEDS: ALPRAZolam 0.25 MG TABLET PO SCH (09:13)
[2016-11-29] MEDS ORDERED: ALBUTEROL SO4 6.7 GM HFA INHALER IH PRN (09:15)
--- NOTE | 2016-11-29 09:59 | DS ---
Physical Exam: SUBJECTIVE: Patient seen and examined Patient is feeling better, with no acute distress. OBJECTIVE: Vital Signs Temperature 98.6 F 11/29/16 08:54 Pulse Rate 60 11/29/16 08:54 Respiratory Rate 20 11/29/16 08:54 Blood Pressure 115/54 11/29/16 08:54 O2 Sat by Pulse Oximetry (%) 99 11/28/16 11:42 PHYSICAL EXAM GENERAL: The patient is awake, alert, and fully oriented, in no acute distress. HEAD: Normal with no signs of trauma. EYES: PERRL, extraocular movements intact, sclera anicteric, conjunctiva clear. ENT: Ears normal, nares patent, oropharynx clear without exudates, moist mucous membranes. NECK: Trachea midline, full range of motion, supple. trach collar LUNGS: minimal exp wheezes to auscultation bilaterally, no crackles, no accessory muscle use. HEART: Regular rate and rhythm, S1, S2 positive,no rub or gallop. ABDOMEN: Soft, no tenderness, nondistended, normoactive bowel sounds, no guarding, no rebound, no masses appreciated. EXTREMITIES: 2+ pulses, warm, well-perfused, no edema in left lower ext. right lower ext. positiv for splint, Good capillary refill able to move right foot toes NEUROLOGICAL: . Normal speech, gait not observed. PSYCH: Normal mood, normal affect. SKIN: Warm, dry, normal turgor, no rashes or lesions noted LABS CBCD WBC 8.0 K/mm3 (4.0-10.0) 11/28/16 10:45 RBC 2.87 M/mm3 (3.60-5.2) L 11/28/16 10:45 Hgb 7.8 GM/dL (10.7-15.3) L 11/28/16 10:45 Hct 24.4 % (32.4-45.2) L 11/28/16 10:45 MCV 84.9 fl (80-96) 11/28/16 10:45 MCHC 31.9 g/dl (32.0-36.0) L 11/28/16 10:45 RDW 18.4 % (11.6-15.6) H 11/28/16 10:45 Plt Count 244 K/MM3 (134-434) 11/28/16 10:45 MPV 8.6 fl (7.5-11.1) 11/28/16 10:45 CMP Sodium 142 mmol/L (136-145) 11/27/16 06:55 Potassium 3.8 mmol/L (3.5-5.1) 11/27/16 06:55 Chloride 106 mmol/L (98-107) 11/27/16 06:55 Carbon Dioxide 29 mmol/L (21-32) 11/27/16 06:55 Anion Gap 7 (8-16) L 11/27/16 06:55 BUN 15 mg/dL (7-18) D 11/27/16 06:55 Creatinine 0.6 mg/dL (0.55-1.02) D 11/27/16 06:55 Creat Clearance w eGFR > 60 (>60) 11/25/16 21:15 Random Glucose 110 mg/dL (74-106) H D 11/27/16 06:55 Calcium 8.0 mg/dL (8.5-10.1) L 11/27/16 06:55 Total Bilirubin 0.1 mg/dL (0.2-1.0) L D 11/25/16 21:15 AST 14 U/L (15-37) L D 11/25/16 21:15 ALT 36 U/L (12-78) D 11/25/16 21:15 Alkaline Phosphatase 83 U/L (45-117) 11/25/16 21:15 Total Protein 6.1 g/dl (6.4-8.2) L 11/25/16 21:15 Albumin 2.8 g/dl (3.4-5.0) L 11/25/16 21:15 CARDIAC ENZYMES Creatine Kinase 18 IU/L (26-192) L 11/28/16 10:45 Troponin I < 0.02 ng/ml (0.00-0.05) 11/28/16 10:45 Laboratory Results - last 24 hr 11/28/16 11/28/16 11/28/16 10:45 10:45 11:30 WBC 8.0 RBC 2.87 L Hgb 7.8 L Hct 24.4 L MCV 84.9 MCHC 31.9 L RDW 18.4 H Plt Count 244 MPV 8.6 Neutrophils % 81.0 Lymphocytes % 18.0 Monocytes % 1.0 L POC Glucometer Creatine Kinase 18 L Troponin I < 0.02 Urine Color Straw Urine Appearance Clear Urine pH 6.0 Ur Specific [place] 1.010 Urine Protein Negative Urine Glucose (UA) Negative Urine Ketones Negative Urine Blood 1+ H Urine Nitrite Negative Urine Bilirubin Negative Urine Urobilinogen Negative Ur Leukocyte Esterase 1+ H D Urine RBC 6 Urine WBC 14 Urine Bacteria Few Urine Mucus Few 11/28/16 11/28/16 11/28/16 12:30 17:59 21:48 WBC RBC Hgb Hct MCV MCHC RDW Plt Count MPV Neutrophils % Lymphocytes % Monocytes % POC Glucometer 155 217 229 Creatine Kinase Troponin I Urine Color Urine Appearance Urine pH Ur Specific [place] Urine Protein Urine Glucose (UA) Urine Ketones Urine Blood Urine Nitrite Urine Bilirubin Urine Urobilinogen Ur Leukocyte Esterase Urine RBC Urine WBC Urine Bacteria Urine Mucus 11/29/16 06:40 WBC RBC Hgb Hct MCV MCHC RDW Plt Count MPV Neutrophils % Lymphocytes % Monocytes % POC Glucometer 226 Creatine Kinase Troponin I Urine Color Urine Appearance Urine pH Ur Specific [place] Urine Protein Urine Glucose (UA) Urine Ketones Urine Blood Urine Nitrite Urine Bilirubin Urine Urobilinogen Ur Leukocyte Esterase Urine RBC Urine WBC Urine Bacteria Urine Mucus Xray hip and Pelvis 11/25/15: Suboptimal examination due to osteopenia and likely due to the patient's body habitus without gross evidence of a fracture or dislocation. Correlate clinically for further evaluation. CXR 11/25/15: Since prior chest x-ray dated 11/01/2016, and allowing for the difference in technique, the cardiac silhouette remains borderline in size. There are increased interstitial lung markings, bilaterally likely due to technique. No focal infiltrates are identified. Extensive hardware again noted in the thoracic spine. Tracheostomy tube is in satisfactory position Xray Right Ankle: Slightly displaced medial and lateral malleolar fracture. Severe osteopenia. HOSPITAL COURSE: Date of Admission:11/25/16 Date of Discharge: 11/29/16 Date of Admission:11/25/16 This is a 50 year old female with a PMH of Afib, DM, HTN, HLD, COPD-oxygen dependent, 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 She was found to have right lateral and medial malleolar fracture. On exam, pt with c/o ankle pain as well as concerned about her nighttime medications that she missed. ER course was notable for: (1) xray + malleolar fracture 50 year old female from of [facility], with pmh PAF, HTN, diabetes, COPD, asthma, tracheostomy, uterine cancer, anxiety, depression, bipolar disorder, abdominal abscess presented to ED s/p fall while in rehab. Pt was found to have a right malleolar fracture on xray foot. Right lateral and medial malleolar fracture Pt was seen by Kayleigh ARMOR [facility] on admission, Short leg splint placed to right lower ext placed, Ortho Follow up with Dr Castorena in 10-14 days in their office , Non weight bearing to right lower ext, Ice, rest and elevate the ankle as needed, was on Dilaudid 1mg q4h prn for pain, will discharge with dilaudid PO 2 mg q4h. Started on Vitamin D PO UTI vs Colonization Pt has 3+ leuk est, + nitrite, urine wbc, lactic acid 1.5, wbc 15.9, WBC could be elevated because of Steroid use, urine culture done was contaminated. will repeat UA and Urine culture. Zosyn IV was given for [address] Williamson consulted for ID. Pt have h/o of urine pseudomonas and enterobacter aerogenes in the last 2 months sensitive to zosyn. Per Dr Williamson, No antibiotics for now COPD with chronic hypoxic failure pt w improved with no more exp wheezes. Pulmonary on case. On trach collar. keep O2 sat >88%. Continue Daliresp. on Prednisone taper currently at 40mg po daily for 3 day. Then will decrease to 30mg daily for 3 days. then 20mg qd for 3 days, then 10mg qd for 3 days then dc Continue bronchodilators. Will given Ventolin inhaler at bedside. Follow up with Pulmonology Anemia Pt denies chest pain, shortness of breath, no lightheadedness, no dizziness, no fatigue or weakness, no hematuria, no melena, no hematchezia, no hemoptysis. Pt has had previous hbg at 7.8 or 7.9. Anxiety disorder/ Depression continue Xanax. Continue Sinequan Hypothryoidism continue synthroid T2DM Continue Novolog sliding scale. levemir 5 u Sq BID # Acute Bimalleolar fracture of right ankle seen my ortho, splinted in ED. Switched to po Dilaudid 2mg q6hr prn pain # Acute leukocytosis/UTI off IV antibitoic was discontinued by ID;. s/ p Zosyn x 2 doses. no signs of infection st this time #P-Atrial fibrillation not on AC due to having GI Bleeds, now in Sinus rhythm.cont current meds. cardizem, lopressor # HTN cont current meds # COPD-oxygen dependent , and on taper dose steroid due to COPD exac, cont. home meds albuterol inh.at bedside. Time taken to discharge the patient 50minutes. Minutes to complete discharge: 50 Discharge Summary Reason For Visit: CLOSED RIGHT HIP FRACTURE Current Active Problems Acute and chronic respiratory failure (Chronic) Anxiety (Chronic) Bipolar 2 disorder (Chronic) COPD (chronic obstructive pulmonary disease) case management patient (Chronic) Chronic back pain (Chronic) Chronic respiratory failure with hypoxia (Chronic) Depression with anxiety (Chronic) Drug abuse and dependence (Chronic) Gallstones (Chronic) Gastritis (Chronic) HTN (hypertension) (Chronic) Hyperlipidemia (Chronic) Obesity (BMI 30.0-34.9) (Chronic) Opioid dependence (Chronic) Paroxysmal atrial fibrillation (Chronic) - Instructions Diet, Activity, Other Instructions: Discharge To SNF resume home medication resume home activity Follow up with primary care physician within 1 week Follow up with wafer slicer within 1 week OOB with assist only Pt was seen by Kayleigh FOSS during this admission, Short leg splint placed to right lower ext placed, Ortho Follow up with Dr Castorena in 10-14 days in their office , Non weight bearing to right lower ext, Ice, rest and elevate the ankle as needed. Referrals: [facility] [Outside] Bhavik Srivastava MD [Staff Physician] - Arnav Castorena MD [Staff Physician] - 2 Weeks Cornelio Salas MD [Primary Care Provider] - Disposition: [facility] - Home Medications Comprehensive Discharge Medication List: Ambulatory Orders Acetaminophen [Tylenol .Regular Strength -] 650 mg PO Q6H PRN #0 tablet Levothyroxine [Synthroid -] 25 mcg PO DAILY@0700 tablet 06/05/16 Albuterol 2.5/Ipratropium 0.5 [Duoneb -] 1 amp NEB Q4HPO amp 09/17/16 Alprazolam [Xanax] 0.25 mg PO BID tablet MDD 2 09/17/16 Diltiazem [Cardizem -] 60 mg PO Q6HPO tablet 09/17/16 Magnesium Oxide [Mag-Ox -] 400 mg PO BID tablet 09/17/16 Albuterol Sulfate Inhaler - [Ventolin HFA Inhaler -] 2 puff IH Q4H PRN #0 inhaler 09/23/16 Baclofen [Lioresal -] 20 mg PO TID 10/01/16 Docusate Sodium [Colace -] 300 mg PO HS 10/01/16 Budesonide/Formeterol Fumarate [SYMBICORT 160/4.5mcg -] 2 inh PO BID 11/01/16 Diphenhydramine [Benadryl 12.5 MG/5 ML Oral Solution -] 25 mg PO Q4H PRN Doxepin HCl [Sinequan -] 25 mg PO HS 11/01/16 Eletriptan Hydrobromide [Relpax -] 40 mg PO PRN 11/01/16 Gabapentin [Neurontin -] 300 mg PO TID 11/01/16 Metoprolol Tartrate [Lopressor -] 25 mg PO TID 11/01/16 Omeprazole 40 mg PO BID 11/01/16 Polyethylene Glycol 3350 [Miralax 119 gm Btl -] 17 gm PO DAILY 11/01/16 Roflumilast [Daliresp] 500 mcg PO DAILY 11/01/16 Sennosides [Senna] 2 tab PO HS 11/01/16 Zolpidem Tartrate [Ambien] 10 mg PO HS PRN MDD 1 11/01/16 Lipase/Protease/Amylase [Creon Dr 6,000 Units Capsule] 3 cap PO TIDCM capsule. 11/07/16 Insulin Sliding Scale [Novolog Vial Sliding Scale -] 0 units SQ ACHS PRN Doxepin HCl [Sinequan -] 25 mg PO HS capsule 11/20/16 Hydromorphone [Dilaudid -] 2 mg PO Q8H PRN #0 tablet MDD 3 11/20/16 Lactobacillus Acidophilus [Bacid -] 1 tab PO BID tab 11/20/16 Loperamide HCl [Imodium -] 2 mg PO Q8H PRN #0 capsule 11/20/16 Metoclopramide HCl [Reglan -] 10 mg PO TIDAC tablet 11/20/16 Multivitamins [Multivit ([facility] Formulary)] 1 tab PO DAILY tab 11/20/16 Ondansetron [Zofran -] 4 mg PO Q4H PRN #0 tablet 11/20/16 Prednisone [Deltasone -] 60 mg PO DAILY #20 tablet 11/20/16 Zinc Oxide 1 applic TP BID tube 11/20/16 Insulin (Levemir) [Levemir Vial] 5 unit SQ DAILY #1 vial 11/21/16 Cholecalciferol (Vitamin D3) [Vitamin D3 -] 2,000 unit PO DAILY #30 tab Heparin - 5,000 unit SQ TID vial 11/28/16 Prednisone [Deltasone -] 10 mg PO DAILY tablet 11/28/16 Prednisone [Deltasone -] 20 mg PO DAILY tablet 11/28/16 Prednisone [Deltasone -] 30 mg PO DAILY tablet 11/28/16 Prednisone [Deltasone -] 40 mg PO DAILY tablet 11/28/16 Albuterol Sulfate Inhaler - [Ventolin HFA Inhaler -] 2 puff IH Q4H PRN #0 inhaler 11/29/16 Hydromorphone [Dilaudid -] 2 mg PO Q4HWA PRN #0 tablet MDD 6 11/29/16 This patient is new to me today: No Emergency Visit: Yes ED Registration Date: 11/25/16 Care time: The patient presented to the Emergency Department on the above date and was hospitalized for further evaluation of their emergent condition. Critical Care patient: No - Discharge Referral Referred to [facility] Med P.C.: No
[2016-12-01] MEDS ORDERED: predniSONE 20 MG TABLET (UD) PO ONE (03:14)
[2016-12-01] MEDS ORDERED: predniSONE 20 MG TABLET (UD) PO SCH (10:00)
[2016-12-04] MEDS ORDERED: predniSONE 10 MG TABLET (UD) PO SCH (10:00)
== END 2016-11-29 11:55 | DRG 563 ==
LOC: JER 19:32 → JERBED 21:18 → J8W 11-26 21:13
PROVIDERS: ADMIT Family Medicine; ATTEND Internal Medicine
PROC: 2W3LX1Z Immobilization of Right Lower Extremity using Splint (ICD-10-PCS; principal; 2016-11-25)
DX: S82.841A Displaced bimalleolar fracture of right lower leg, initial encounter for closed fracture (principal); N39.0 Urinary tract infection, site not specified; F31.89 Other bipolar disorder; C79.51 Secondary malignant neoplasm of bone; I48.0 Paroxysmal atrial fibrillation; E78.5 Hyperlipidemia, unspecified; E03.9 Hypothyroidism, unspecified; J45.909 Unspecified asthma, uncomplicated; J44.9 Chronic obstructive pulmonary disease, unspecified; D64.9 Anemia, unspecified; E78.00 Pure hypercholesterolemia, unspecified; E11.9 Type 2 diabetes mellitus without complications; M54.5 Low back pain; C55 Malignant neoplasm of uterus, part unspecified; Z99.81 Dependence on supplemental oxygen; W18.39XA Other fall on same level, initial encounter; Y93.89 Activity, other specified; Y92.128 Other place in nursing home as the place of occurrence of the external cause
CPT/HCPCS: 36415; 71010-TC; 73523-TC; 73610-TC-RT; 80048; 80053; 81003; 81015; 82550; 83605; 83735; 84100; 84484; 85025; 85610; 86850; 86900; 86901; 87086; 93005; 93010; 94640; 99283-25; J0475; J1644

== ENCOUNTER 2016-12-11 09:40 | Observation (INO) | payer OTHER ==
--- NOTE | 2016-12-11 10:22 | PDOC ---
History of Present Illness - History of Present Illness Initial Comments: 12/11/16 10:57 The patient is a 51 year old female with a past medical hx of AFIB, HTN, hyperlipidemia, asthma, COPD who presents to the ED complaining of a headache for 4 days. The patient describes the headache as left sided, intermittent, and a 10/10. The patient states her headache started as pressure in her left ear but denies ear pain. She notes she is experiencing photophobia and reports she suffers from migraines. She notes vomiting and diarrhea for two days. She reports having 5 episodes of vomiting and 4 episodes of diarrhea. She denies blood in the stool or vomit. She reports associated LLQ abdominal pain, The patient states she she was given Zofran from the long term for her nausea. The patient states she has been drinking ginerale and is able to keep liquids down. The patient states she had a fever yesterday and was given two tablets of Tylenol. She denies chest pain, SOB. The patient denies dysuria, frequency The patient denies numbness, tingling Allergies: Oxycodone, aspirin, promethazine Surgical: Appendectomy, bowel resection, hysterectomy Social: Lives at [place] PCP: Dr. Cornelio Salas <Fiona Fernandez - Last Filed: 12/11/16 14:31> <Jeff Garcia - Last Filed: 12/11/16 17:37> - General Stated Complaint: ABD PAIN Time Seen by Provider: 12/11/16 10:21 Past History <Fiona Fernandez - Last Filed: 12/11/16 14:31> - Past Medical History Anemia: Yes Asthma: Yes (COPD) Cancer: Yes (UTERINE) Cardiac Disorders: Yes (A-fib) CVA: No COPD: Yes CHF: No Dementia: No Diabetes: Yes GI Disorders: Yes (colitis, SB resection,) Disorders: Yes (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) HTN: Yes Hypercholesterolemia: Yes Liver Disease: No Suicide Attempt (Hx): No Seizures: Yes (5 yrs ago had a seizure ( zofran and reglan given together as per patient) Thyroid Disease: No - Surgical History Abdominal Surgery: Yes (BOWEL RESECTION) Appendectomy: Yes (removed 1998) Cardiac Surgery: No Cholecystectomy: No Lung Surgery: No Neurologic Surgery: No Orthopedic Surgery: Yes (Back Sx T7,6) - Immunization History Td Vaccination: Yes TDAP Vaccination: Yes Immunization Up to Date: Yes - Psycho/Social/Smoking Cessation Hx Anxiety: No Suicidal Ideation: No Smoking Status: No Smoking History: Unknown if ever smoked Have you smoked in the past 12 months: No Number of Cigarettes Smoked Daily: 3 If you are a former smoker, when did you quit?: 10/11/14 'Breaking Loose' booklet given: 03/12/15 Hx Alcohol Use: No Drug/Substance Use Hx: No Substance Use Type: None Hx Substance Use Treatment: No <Jeff Garcia - Last Filed: 12/11/16 17:37> - Past Medical History Allergies/Adverse Reactions: Allergies Allergy/AdvReac Type Severity Reaction Status Date / Time oxycodone [Oxycodone] Allergy Severe Nausea Verified 11/25/16 19:58 oxycodone HCl [From Percocet] Allergy Severe Nausea Verified 11/25/16 19:58 aspirin Allergy Mild Verified 11/25/16 19:58 blueberry [Blueberry] Allergy Mild Swelling Verified 11/25/16 19:58 promethazine HCl Allergy Mild Verified 11/25/16 19:58 [From Phenergan] promethazine Allergy Verified 11/25/16 19:58 Home Medications: Ambulatory Orders Acetaminophen [Tylenol .Regular Strength -] 650 mg PO Q6H PRN #0 tablet Levothyroxine [Synthroid -] 25 mcg PO DAILY@0700 tablet 06/05/16 Albuterol 2.5/Ipratropium 0.5 [Duoneb -] 1 amp NEB Q4HPO amp 09/17/16 Alprazolam [Xanax] 0.25 mg PO BID tablet MDD 2 09/17/16 Diltiazem [Cardizem -] 60 mg PO Q6HPO tablet 09/17/16 Magnesium Oxide [Mag-Ox -] 400 mg PO BID tablet 09/17/16 Albuterol Sulfate Inhaler - [Ventolin HFA Inhaler -] 2 puff IH Q4H PRN #0 inhaler 09/23/16 Baclofen [Lioresal -] 20 mg PO TID 10/01/16 Docusate Sodium [Colace -] 300 mg PO HS 10/01/16 Budesonide/Formeterol Fumarate [SYMBICORT 160/4.5mcg -] 2 inh PO BID 11/01/16 Diphenhydramine [Benadryl 12.5 MG/5 ML Oral Solution -] 25 mg PO Q4H PRN Doxepin HCl [Sinequan -] 25 mg PO HS 11/01/16 Eletriptan Hydrobromide [Relpax -] 40 mg PO PRN 11/01/16 Gabapentin [Neurontin -] 300 mg PO TID 11/01/16 Metoprolol Tartrate [Lopressor -] 25 mg PO TID 11/01/16 Omeprazole 40 mg PO BID 11/01/16 Polyethylene Glycol 3350 [Miralax 119 gm Btl -] 17 gm PO DAILY 11/01/16 Roflumilast [Daliresp] 500 mcg PO DAILY 11/01/16 Sennosides [Senna] 2 tab PO HS 11/01/16 Zolpidem Tartrate [Ambien] 10 mg PO HS PRN MDD 1 11/01/16 Lipase/Protease/Amylase [Eamon Turner 6,000 Units Capsule] 3 cap PO TIDCM capsule. 11/07/16 Insulin Sliding Scale [Novolog Vial Sliding Scale -] 0 units SQ ACHS PRN Doxepin HCl [Sinequan -] 25 mg PO HS capsule 11/20/16 Hydromorphone [Dilaudid -] 2 mg PO Q8H PRN #0 tablet MDD 3 11/20/16 Lactobacillus Acidophilus [Bacid -] 1 tab PO BID tab 11/20/16 Loperamide HCl [Imodium -] 2 mg PO Q8H PRN #0 capsule 11/20/16 Metoclopramide HCl [Reglan -] 10 mg PO TIDAC tablet 11/20/16 Multivitamins [Multivit ([facility] Formulary)] 1 tab PO DAILY tab 11/20/16 Ondansetron [Zofran -] 4 mg PO Q4H PRN #0 tablet 11/20/16 Zinc Oxide 1 applic TP BID tube 11/20/16 Insulin (Levemir) [Levemir Vial] 5 unit SQ DAILY #1 vial 11/21/16 Cholecalciferol (Vitamin D3) [Vitamin D3 -] 2,000 unit PO DAILY #30 tab Heparin - 5,000 unit SQ TID vial 11/28/16 Prednisone [Deltasone -] 20 mg PO DAILY tablet 11/28/16 Albuterol Sulfate Inhaler - [Ventolin HFA Inhaler -] 2 puff IH Q4H PRN #0 inhaler 11/29/16 Hydromorphone [Dilaudid -] 2 mg PO Q4HWA PRN #0 tablet MDD 6 11/29/16 Prednisone 10 mg PO DAILY #15 tablet 11/29/16 Review of Systems - Review of Systems Able to Perform ROS?: Yes Comments:: 12/11/16 10:57 CONSTITUTIONAL: +Fever. Absent: chills, diaphoresis, generalized weakness, malaise, loss of appetite HEENT: Absent: rhinorrhea, nasal congestion, throat pain, throat swelling, difficulty swallowing, mouth swelling, ear pain, eye pain, visual Changes CARDIOVASCULAR: Absent: chest pain, syncope, palpitations, irregular heart rate, lightheadedness , peripheral edema RESPIRATORY: Absent: cough, shortness of breath, dyspnea with exertion, orthopnea, wheezing, stridor, hemoptysis GASTROINTESTINAL: +Vomiting, nausea, diarrhea, abdominal pain. Absent: abdominal distension, constipation, melena, hematochezia GENITOURINARY: Absent: dysuria, frequency, urgency, hesitancy, hematuria, flank pain, genital pain MUSCULOSKELETAL: Absent: myalgia, arthralgia, joint swelling SKIN: Absent: rash, itching, pallor HEMATOLOGIC/IMMUNOLOGIC: Absent: easy bleeding, easy bruising, lymphadenopathy, frequent infections ENDOCRINE: Absent: unexplained weight gain, unexplained weight loss, heat intolerance, cold intolerance NEUROLOGIC: +Headache. Absent: focal weakness or paresthesias, dizziness, unsteady gait, seizure, mental status changes, bladder or bowel incontinence PSYCHIATRIC: Absent: anxiety, depression, suicidal or homicidal ideation, hallucinations. <Fiona Fernandez - Last Filed: 12/11/16 14:31> *Physical Exam - Vital Signs Last Vital Signs Temp Pulse Resp BP Pulse Ox 98.8 F 118 H 20 105/74 97 12/11/16 10:23 12/11/16 10:23 12/11/16 10:23 12/11/16 10:23 12/11/16 10:23 - Physical Exam Comments: 12/11/16 11:03 GENERAL: Well developed, well nourished. Awake and alert. In no acute distress. HEENT: +Dry mucous membranes. Normocephalic, atraumatic. PERRLA, EOMI. No conjunctival pallor. Sclera are non-icteric. Oropharynx is clear. NECK: Supple. Full ROM. No JVD. Carotid pulses 2+ and symmetric, without bruits. No thyromegaly. No lymphadenopathy. CARDIOVASCULAR: +Mild tachycardia. Regular rhythm. No murmurs, rubs, or gallops. Distal pulses are 2+ and symmetric. PULMONARY: +Expiratory wheezes. No evidence of respiratory distress. Lungs clear to auscultation bilaterally. No rales or rhonchi. ABDOMINAL: Soft. Non-tender. Non-distended. No rebound or guarding. No organomegaly. Normoactive bowel sounds. MUSCULOSKELETAL Normal range of motion at all joints. No bony deformities or tenderness. No CVA tenderness. EXTREMITIES: No cyanosis. No clubbing. No edema. No calf tenderness. SKIN: Warm and dry. Normal capillary refill. No rashes. No jaundice. NEUROLOGICAL: Alert, awake, appropriate. Cranial nerves 2-12 intact. No deficits to light touch and temperature in face, upper extremities and lower extremities. No motor deficits in the in face, upper extremities and lower extremities. Normoreflexic in the upper and lower extremities. Normal speech. PSYCHIATRIC: Cooperative. Good eye contact. Appropriate mood and affect. <Fiona Fernandez - Last Filed: 12/11/16 14:31> ED Treatment Course - LABORATORY CBC & Chemistry Diagram: 12/11/16 11:42 12/11/16 11:42 - RADIOLOGY Radiograph Interpretation: 12/11/16 14:31 CT Abd/Pelv IMPRESSION: There is now a small focal soft tissue density at the site of previously visualized collection in the right anterior abdomen consistent with scarring without evidence of an organized collection or stranding of the surrounding fat. Tiny nonobstructing left renal stone again seen Reported By: Randi Montoya MD 12/11/[address] Head Impression. No evidence of acute intracranial hemorrhage, edema, midline shift, mass effect , or skull fracture. No CT evidence of acute territorial infarction. Reported By: Lisandro Lowe MD 12/11/16 4232 <Fiona Fernandez - Last Filed: 12/11/16 14:31> - LABORATORY CBC & Chemistry Diagram: 12/11/16 11:42 12/11/16 11:42 <Jeff Garcia - Last Filed: 12/11/16 17:37> *DC/Admit/Observation/Transfer - Attestations Scribe Attestion: 12/11/16 10:57 Documentation prepared by Fiona Fernandez, acting as medical economics consultant for Jeff Garcia MD, MD/DO. <Fiona Fernandez - Last Filed: 12/11/16 14:31> - Discharge Dispostion Admit: Yes <Jeff Garcia - Last Filed: 12/11/16 17:37> Diagnosis at time of Disposition: Chronic abdominal pain, Infectious diarrhea - Discharge Dispostion Condition at time of disposition: Guarded - Referrals Referrals: Cornelio Salas MD [Primary Care Provider] -
[2016-12-11 10:27] VITALS: BMI 31.1
[2016-12-11] MEDS ORDERED: SODIUM CHLORIDE 1,000 ML IV STA (11:04)
[2016-12-11] MEDS ORDERED: FAMOTIDINE 20 MG/50 ML IVPB 50 ML IVPB ONE (11:05)
[2016-12-11] MEDS ORDERED: ONDANSETRON 4 MG/2 ML VIAL IVPUSH ONE (11:05)
[2016-12-11 11:59] LABS: BASOPHIL 1.3 % (0-2.0); EOSINOPHIL 6.8 % (0-4.5); MCHC 32.4 g/dl (32.0-36.0); MEAN CELL VOLUME 83.4 fl (80-96); MEAN PLT VOLUME 8.6 fl (7.5-11.1); NEUTROPHILS 61.5 % (42.8-82.8); PLATELET COUNT 288 K/MM3 (134-434); RDW 18.2 % (11.6-15.6); WHITE BLOOD COUNT 6.6 K/mm3 (4.0-10.0)
[2016-12-11 12:46] LABS: ALBUMIN 3.2 g/dl (3.4-5.0); ANION GAP 12 (8-16); CALCIUM 9.4 mg/dL (8.5-10.1); CO2 28 mmol/L (21-32); GLUCOSE,RANDOM 158 mg/dL (74-106)
[2016-12-11 12:48] LABS: BILIRUBIN,TOTAL 0.3 mg/dL (0.2-1.0); CREATININE 0.6 mg/dL (0.55-1.02); SGPT/ALT 112 U/L (12-78); TOT PROT 6.7 g/dl (6.4-8.2)
[2016-12-11 12:49] LABS: ALK PHOS 162 U/L (45-117); SGOT/AST 32 U/L (15-37)
[2016-12-11] MEDS ORDERED: HYDROmorphone HCL CARPU-JECT 1 MG/1 ML DISP.SYRIN IVPUSH ONE ×3 (13:13→20:59)
[2016-12-11] MEDS ORDERED: HYDROmorphone HCL CARPU-JECT 1 MG/1 ML DISP.SYRIN ONE ×3 (13:24→23:22)
[2016-12-11] MEDS ORDERED: VANCOMYCIN 1,000 MG in DEXTROSE 5%-WATER - 250 ML IVPB ONE (17:35)
[2016-12-11] MEDS ORDERED: METRONIDAZOLE 500 MG PREMIXED 100 ML IVPB ONE (17:35)
--- NOTE | 2016-12-11 18:00 | CON.GI ---
Consult Consult Specialty:: GI Referred by:: DR Salas Reason for Consultation:: abdominal pain and diarrhea - History of Present Illness History of Present Illness: 51 y/o female with PMH of chronic abdominal pain, history of intra abdominal abscess has left lower quadrant associated with diarrhea. Diarrhea is non- bloody, no melena. - Past Medical History Cardio/Vascular: Yes: AFIB (Paroxysmal), HTN, Hyperlipdemia Pulmonary: Yes: Asthma, COPD, O2 Dependent Renal/: Yes: Cancer (Uterine), Other ([place] in the past) Infectious Disease: Yes: C-Diff (june 2014), Other (Osteomyelitis of thoracic spine) Psych: Yes: Anxiety, Bipolar, Depression Musculoskeletal: Yes: Chronic low back pain Additional Medical History: Frequent c/o abdominal pain-extensive w/u in the past negative. Presumed adhesions from prior surgeries. - Past Surgical History Past Surgical History: Yes: Hysterectomy (with BSO) - Alcohol/Substance Use Hx Alcohol Use: No - Smoking History Smoking history: Unknown if ever smoked Have you smoked in the past 12 months: No Aproximately how many cigarettes per day: 3 If you are a former smoker, when did you quit?: 10/11/14 - Social History Usual Living Arrangement: With Significant Other 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) History of Recent Travel: No Home Medications - Allergies Allergies/Adverse Reactions: Allergies Allergy/AdvReac Type Severity Reaction Status Date / Time oxycodone [Oxycodone] Allergy Severe Nausea Verified 11/25/16 19:58 oxycodone HCl [From Percocet] Allergy Severe Nausea Verified 11/25/16 19:58 aspirin Allergy Mild Verified 11/25/16 19:58 blueberry [Blueberry] Allergy Mild Swelling Verified 11/25/16 19:58 promethazine HCl Allergy Mild Verified 11/25/16 19:58 [From Phenergan] promethazine Allergy Verified 11/25/16 19:58 - Home Medications Home Medications: Ambulatory Orders Acetaminophen [Tylenol .Regular Strength -] 650 mg PO Q6H PRN #0 tablet Levothyroxine [Synthroid -] 25 mcg PO DAILY@0700 tablet 06/05/16 Albuterol 2.5/Ipratropium 0.5 [Duoneb -] 1 amp NEB Q4HPO amp 09/17/16 Alprazolam [Xanax] 0.25 mg PO BID tablet MDD 2 09/17/16 Diltiazem [Cardizem -] 60 mg PO Q6HPO tablet 09/17/16 Magnesium Oxide [Mag-Ox -] 400 mg PO BID tablet 09/17/16 Albuterol Sulfate Inhaler - [Ventolin HFA Inhaler -] 2 puff IH Q4H PRN #0 inhaler 09/23/16 Baclofen [Lioresal -] 20 mg PO TID 10/01/16 Docusate Sodium [Colace -] 300 mg PO HS 10/01/16 Budesonide/Formeterol Fumarate [SYMBICORT 160/4.5mcg -] 2 inh PO BID 11/01/16 Diphenhydramine [Benadryl 12.5 MG/5 ML Oral Solution -] 25 mg PO Q4H PRN Doxepin HCl [Sinequan -] 25 mg PO HS 11/01/16 Eletriptan Hydrobromide [Relpax -] 40 mg PO PRN 11/01/16 Gabapentin [Neurontin -] 300 mg PO TID 11/01/16 Metoprolol Tartrate [Lopressor -] 25 mg PO TID 11/01/16 Omeprazole 40 mg PO BID 11/01/16 Polyethylene Glycol 3350 [Miralax 119 gm Btl -] 17 gm PO DAILY 11/01/16 Roflumilast [Daliresp] 500 mcg PO DAILY 11/01/16 Sennosides [Senna] 2 tab PO HS 11/01/16 Zolpidem Tartrate [Ambien] 10 mg PO HS PRN MDD 1 11/01/16 Lipase/Protease/Amylase [Creon Dr 6,000 Units Capsule] 3 cap PO TIDCM capsule. 11/07/16 Insulin Sliding Scale [Novolog Vial Sliding Scale -] 0 units SQ ACHS PRN Doxepin HCl [Sinequan -] 25 mg PO HS capsule 11/20/16 Hydromorphone [Dilaudid -] 2 mg PO Q8H PRN #0 tablet MDD 3 11/20/16 Lactobacillus Acidophilus [Bacid -] 1 tab PO BID tab 11/20/16 Loperamide HCl [Imodium -] 2 mg PO Q8H PRN #0 capsule 11/20/16 Metoclopramide HCl [Reglan -] 10 mg PO TIDAC tablet 11/20/16 Multivitamins [Multivit ([facility] Formul[facility])] 1 tab PO DAILY tab 11/20/16 Ondansetron [Zofran -] 4 mg PO Q4H PRN #0 tablet 11/20/16 Zinc Oxide 1 applic TP BID tube 11/20/16 Insulin (Levemir) [Levemir Vial] 5 unit SQ DAILY #1 vial 11/21/16 Cholecalciferol (Vitamin D3) [Vitamin D3 -] 2,000 unit PO DAILY #30 tab Heparin - 5,000 unit SQ TID vial 11/28/16 Prednisone [Deltasone -] 20 mg PO DAILY tablet 11/28/16 Albuterol Sulfate Inhaler - [Ventolin HFA Inhaler -] 2 puff IH Q4H PRN #0 inhaler 11/29/16 Hydromorphone [Dilaudid -] 2 mg PO Q4HWA PRN #0 tablet MDD 6 11/29/16 Prednisone 10 mg PO DAILY #15 tablet 11/29/16 Family Disease History - Family Disease History Family Disease History: Diabetes: Mother (heart surgery), Heart Disease: Mother , CA: Father (leukemia) Physical Exam-GI Vital Signs: Vital Signs Temperature 98.8 F 12/11/16 10:23 Pulse Rate 118 H 12/11/16 10:23 Respiratory Rate 20 12/11/16 10:23 Blood Pressure 105/74 12/11/16 10:23 O2 Sat by Pulse Oximetry (%) 97 12/11/16 10:23 Constitutional: Yes: Well Nourished Eyes: Yes: Conjunctiva Clear HENT: Yes: Atraumatic Neck: Yes: Supple Cardiovascular: Yes: Regular Rate and Rhythm Respiratory: Yes: CTA Bilaterally ...Palpate: Yes: Soft, Tenderness (--llq tenederness). No: Firm/Rigid, Guarding , Hepatomegaly, Mass, Pulsatile Mass, Splenomegaly Labs: CBC, BMP 12/11/16 11:42 12/11/16 11:42 Problem List - Problems (1) Chronic abdominal pain Assessment/Plan: R> IV hydration etiology unclear Code(s): R10.9 - UNSPECIFIED ABDOMINAL PAIN G89.29 - OTHER CHRONIC PAIN (2) Infectious diarrhea Assessment/Plan: empirically treat with flagyl 500mg tid clear liquids Code(s): A09 - INFECTIOUS GASTROENTERITIS AND COLITIS, UNSPECIFIED
[2016-12-11 19:53] LABS: URINE APPEARANCE CLEAR; URINE BILIRUBIN NEGATIVE (NEGATIVE); URINE BLOOD NEGATIVE (NEGATIVE); URINE COLOR YELLOW; URINE GLUCOSE (UA) NEGATIVE (NEGATIVE); URINE KETONE NEGATIVE (NEGATIVE); URINE LEUK ESTERASE NEGATIVE (NEGATIVE); URINE NITRITE NEGATIVE (NEGATIVE); URINE UROBILINOGEN NEGATIVE E.U./dl (0.2-1.0)
[2016-12-11] MEDS ORDERED: ELETRIPTAN HYDROBROMIDE 40 MG TABLET PO PRN (19:55)
[2016-12-11] MEDS ORDERED: ACETAMINOPHEN 325 MG TABLET (FP) PO PRN (19:55)
[2016-12-11] MEDS ORDERED: VANCOMYCIN 1 GRAM (PRE-DOCKED) 250 ML IVPB ONE (20:22)
[2016-12-11] MEDS: LACTATED RINGERS SOLUTION 1,000 ML IV SCH (20:35)
[2016-12-11 20:38] LABS: URINE PROTEIN 1+ (NEGATIVE)
[2016-12-11 20:44] LABS: URINE MUCUS FEW; URINE RBC <1 /hpf (0-3); URINE WBC 1 /hpf (3-5)
--- NOTE | 2016-12-11 22:05 | HP ---
CHIEF COMPLAINT: Diarrhea and Vomiting PCP: Dr. 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 Patient reports the last episode of diarrhea was over 15 hours ago but had an episode of nonbloody vomiting three hours ago. Patient states she [facility], which helped her diarrhea. Patient denies any recent antibiotic use but does have a history of chronic diarrhea. Otherwise, patient denies any current chest pain, palpitations, headache, dizziness, loss of consciousness, acute vision change, dysuria, frequency. ER course was notable for: (1) Flagyl (2) 1 Bolus IV NS (3) Pepcid Recent Travel: Denies PAST MEDICAL HISTORY: Afib, DM, HTN, HLD, COPD-oxygen dependent on a tracheostomy, uterine CA with mets to spine, colitis, bipolar depression PAST SURGICAL HISTORY: T6&T7 metastatic tumor resection, tracheostomy Social History: Smoking: Denies Alcohol: Denies Drugs: Denies Family History: mother with heart disease/heart surgery father: leukemia Allergies oxycodone [Oxycodone] Allergy (Severe, Verified 11/25/16 19:58) Nausea oxycodone HCl [From Percocet] Allergy (Severe, Verified 11/25/16 19:58) Nausea aspirin Allergy (Mild, Verified 11/25/16 19:58) blueberry [Blueberry] Allergy (Mild, Verified 11/25/16 19:58) Swelling promethazine HCl [From Phenergan] Allergy (Mild, Verified 11/25/16 19:58) promethazine Allergy (Verified 11/25/16 19:58) HOME MEDICATIONS: Medication Instructions Recorded Acetaminophen [Tylenol .Regular 650 mg PO Q6H PRN #0 tablet 06/05/16 Strength -] Levothyroxine [Synthroid -] 25 mcg PO DAILY@0700 tablet 06/05/16 Albuterol 2.5/Ipratropium 0.5 1 amp NEB Q4HPO amp 09/17/16 [Duoneb -] Alprazolam [Xanax] 0.25 mg PO BID tablet MDD 2 09/17/16 Diltiazem [Cardizem -] 60 mg PO Q6HPO tablet 09/17/16 Magnesium Oxide [Mag-Ox -] 400 mg PO BID tablet 09/17/16 Albuterol Sulfate Inhaler - 2 puff IH Q4H PRN #0 inhaler 09/23/16 [Ventolin HFA Inhaler -] Baclofen [Lioresal -] 20 mg PO TID 10/01/16 Docusate Sodium [Colace -] 300 mg PO HS 10/01/16 Budesonide/Formeterol Fumarate 2 inh PO BID 11/01/16 [SYMBICORT 160/4.5mcg -] Diphenhydramine [Benadryl 12.5 25 mg PO Q4H PRN 11/01/16 MG/5 ML Oral Solution -] Doxepin HCl [Sinequan -] 25 mg PO HS 11/01/16 Eletriptan Hydrobromide [Relpax -] 40 mg PO PRN 11/01/16 Gabapentin [Neurontin -] 300 mg PO TID 11/01/16 Metoprolol Tartrate [Lopressor -] 25 mg PO TID 11/01/16 Omeprazole 40 mg PO BID 11/01/16 Polyethylene Glycol 3350 [Miralax 17 gm PO DAILY 11/01/16 119 gm Btl -] Roflumilast [Daliresp] 500 mcg PO DAILY 11/01/16 Sennosides [Senna] 2 tab PO HS 11/01/16 Zolpidem Tartrate [Ambien] 10 mg PO HS PRN MDD 1 11/01/16 Lipase/Protease/Amylase [Creon Dr 3 cap PO TIDCM capsule. 11/07/16 6,000 Units Capsule] Insulin Sliding Scale [Novolog 0 units SQ ACHS PRN 11/08/16 Vial Sliding Scale -] Doxepin HCl [Sinequan -] 25 mg PO HS capsule 11/20/16 Hydromorphone [Dilaudid -] 2 mg PO Q8H PRN #0 tablet MDD 3 11/20/16 Lactobacillus Acidophilus [Bacid -] 1 tab PO BID tab 11/20/16 Loperamide HCl [Imodium -] 2 mg PO Q8H PRN #0 capsule 11/20/16 Metoclopramide HCl [Reglan -] 10 mg PO TIDAC tablet 11/20/16 Multivitamins [Multivit ([facility] 1 tab PO DAILY tab 11/20/16 Formulary)] Ondansetron [Zofran -] 4 mg PO Q4H PRN #0 tablet 11/20/16 Zinc Oxide 1 applic TP BID tube 11/20/16 Insulin (Levemir) [Levemir Vial] 5 unit SQ DAILY #1 vial 11/21/16 Cholecalciferol (Vitamin D3) 2,000 unit PO DAILY #30 tab 11/28/16 [Vitamin D3 -] Heparin - 5,000 unit SQ TID vial 11/28/16 Prednisone [Deltasone -] 20 mg PO DAILY tablet 11/28/16 Albuterol Sulfate Inhaler - 2 puff IH Q4H PRN #0 inhaler 11/29/16 [Ventolin HFA Inhaler -] Hydromorphone [Dilaudid -] 2 mg PO Q4HWA PRN #0 tablet MDD 6 11/29/16 Prednisone 10 mg PO DAILY #15 tablet 11/29/16 REVIEW OF SYSTEMS CONSTITUTIONAL: Absent: fever, chills, diaphoresis, generalized weakness, malaise, loss of appetite, weight change HEENT: Absent: rhinorrhea, nasal congestion, throat pain, throat swelling, difficulty swallowing, mouth swelling, ear pain, eye pain, visual changes CARDIOVASCULAR: Absent: chest pain, syncope, palpitations, irregular heart rate, lightheadedness , peripheral edema RESPIRATORY: Absent: cough, shortness of breath, dyspnea with exertion, orthopnea, wheezing, stridor, hemoptysis GASTROINTESTINAL: Abdominal pain, abdominal distension, nausea, vomiting, diarrhea Absent: Constipation, melena, hematochezia GENITOURINARY: Absent: dysuria, frequency, urgency, hesitancy, hematuria, flank pain, genital pain MUSCULOSKELETAL: Absent: myalgia, arthralgia, joint swelling, back pain, neck pain SKIN: Absent: rash, pallor HEMATOLOGIC/IMMUNOLOGIC: Absent: easy bleeding, easy bruising, lymphadenopathy, frequent infections ENDOCRINE: Absent: unexplained weight gain, unexplained weight loss, heat intolerance, cold intolerance NEUROLOGIC: Absent: headache, focal weakness or paresthesias, dizziness, unsteady gait, seizure, mental status changes, bladder or bowel incontinence PSYCHIATRIC: Absent: anxiety, depression, suicidal or homicidal ideation, hallucinations. PHYSICAL EXAMINATION GENERAL: Awake, alert, and fully oriented, in no acute distress. HEAD: Normal with no signs of trauma. EYES: Pupils equal, round and reactive to light, extraocular movements intact, sclera anicteric, conjunctiva clear. No lid lag. EARS, NOSE, THROAT: Ears normal, nares patent, oropharynx clear without exudates. Moist mucous membranes. NECK: Tracheostomy, without lymphadenopathy, JVD, or masses. LUNGS: Bilateral wheezing throughout lung bases. No crackles. No accessory muscle use. HEART: Regular rate and rhythm, normal S1 and S2 without murmur, rub or gallop. ABDOMEN: Soft, tenderness upon palpation of left upper and lower abdomen, as well as right upper abdomen. (+) cruz's sign. Normoactive bowel sounds, no guarding, no rebound, no masses. No hepatomegaly or splenomegaly. MUSCULOSKELETAL: Normal range of motion at all joints. No bony deformities or tenderness. No CVA tenderness. UPPER EXTREMITIES: No peripheral edema. LOWER EXTREMITIES: No peripheral edema. NEUROLOGICAL: Cranial nerves II-XII intact. Normal speech. PSYCHIATRIC: Cooperative. Good eye contact. Appropriate mood and affect. SKIN: Warm, dry, normal turgor, no rashes or lesions noted. CT Abdomen/Pelvis: There is now a small focal soft tissue density at the site of previously visualized collection in the right anterior abdomen consistent with scarring without evidence of an organized collection or stranding of the surrounding fat. Tiny nonobstructing left renal stone again seen Reported By: Randi Montoya MD 12/11/16 2819 ASSESSMENT/PLAN: Patient is a 51 year old female with a PMHx of Afib, DM, HTN, HLD, 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 Patient admitted for observation for further monitoring. Abdominal pain with diarrhea and vomiting -Possibly due to Cholecystitis vs. Gastroenteritis -WBC's wnl -vitals wnl -ALT and Alk phos elevated -Continue home medication 2mg PO Dilaudid Q4H -Lipase and Amylase ordered -Stool cultures sent -U/A negative -Pepcid IV given -GI consult placed -Flagyl 500mg TID and place on clear liquids, as per Gi -Continue lactated ringers @150 mls/hr -Abdominal ultrasound ordered to rule out cholecystitis COPD with chronic hypoxic failure -No current exacerbation -On trach collar -keep O2 sat >88% -Continue Daliresp -Continue home medication Prednisone 10mg PO daily -Continue bronchodilators Anxiety disorder/ Depression -continue Xanax -Continue Sinequan Hypothryoidism -continue synthroid DM2 -Novolog sliding scale -levemir 5 u Sq BID PAF -currently in Sinus rhythm -on cardizem Po -On lopressor Po HTN -on cardizem Po -On lopressor Po FEN -On Lactated ringers @ 150mls/hr -Electrolytes wnl -Clear liquids Prophylaxis -DVT: SCD, heparin SQ -No GI needed Disposition -Full code -Will observe overnight Visit type - Emergency Visit Emergency Visit: Yes ED Registration Date: 12/11/16 Care time: The patient presented to the Emergency Department on the above date and was hospitalized for further evaluation of their emergent condition. - New Patient This patient is new to me today: Yes Date on this admission: 12/13/16 - Critical Care Critical Care patient: No
[2016-12-11] MEDS: GABAPENTIN 300 MG CAPSULE (FP) PO SCH (23:00)
[2016-12-11] MEDS: PANTOPRAZOLE 40 MG TABLET (FP) PO SCH (23:00)
[2016-12-11] MEDS: ZINC OXIDE 20% TOPICAL OINTMENT 30 GM TUBE TP SCH (23:00)
[2016-12-11] MEDS: SENNOSIDES 8.6MG TABLET (FP) PO SCH (23:00)
[2016-12-11] MEDS: MAGNESIUM OXIDE 400 MG TABLET (FP) PO SCH (23:00)
[2016-12-11] MEDS: DOXEPIN HCL 25 MG CAPSULE PO SCH (23:00)
[2016-12-11] MEDS: diphenhydrAMINE HCL 12.5 MG/5 ML UNIT-DOSE CUPS PO PRN (23:00)
[2016-12-11] MEDS: HEPARIN NA (PORCINE) 5,000 UNITS/ML 1ML VIAL SQ SCH (23:00)
[2016-12-11] MEDS: METOPROLOL TARTRATE 25 MG TABLET (FP) PO SCH (23:00)
[2016-12-11] MEDS: BUDESONIDE/FORMETEROL FUMARATE 160/4.5 mcg INHALER IH SCH (23:00)
[2016-12-11] MEDS: INSULIN SLIDING SCALE (NOVOLOG) 1 VIAL SQ SCH (23:00)
[2016-12-11] MEDS: BACLOFEN 10 MG TABLET (FP) PO SCH (23:00)
[2016-12-11] MEDS: ALBUTEROL SO4 2.5/IPRATROPIUM 0.5 INH SOL 3 ML VIAL.NEB. NEB SCH (23:05)
[2016-12-11] MEDS ORDERED: ALPRAZolam 0.25 MG TABLET ONE (23:17)
[2016-12-11] MEDS ORDERED: HYDROmorphone HCL CARPU-JECT 1 MG/1 ML DISP.SYRIN IVPB ONE (23:18)
[2016-12-11] MEDS: ALPRAZolam 0.25 MG TABLET PO SCH (23:28)
[2016-12-11] MEDS ORDERED: DOCUSATE SODIUM 100 MG CAPSULE (FP) PO ONE (23:41)
[2016-12-11] MEDS ORDERED: HEPARIN NA (PORCINE) 5,000 UNITS/ML 1ML VIAL ONE (23:41)
[2016-12-11] MEDS ORDERED: diphenhydrAMINE HCL 12.5 MG/5 ML BULK BOTTLE ONE (23:42)
--- NOTE | 2016-12-12 00:16 | PN ---
<Clinton Lopez - Last Filed: 12/12/16 00:21> Teaching Attending Note ATTENDING PHYSICIAN STATEMENT I saw and evaluated the patient. I reviewed the resident's note and discussed the case with the resident. I agree with the resident's findings and plan as documented. SUBJECTIVE: The patient is a 51 year old female who presents to the emergency department with abdominal pain, nausea, vomiting, and diarrhea for two days. The patient states that she has constant left sided abdominal pain and right sided abdominal pain on palpation. She reports having 5 episodes of nonbloody, nonmucoid vomiting (last episode 18:00) and 4 episodes of nonbloody, nonbilious diarrhea (last episode 06:00). The patient notes that her symptoms are accompanied by headache and passing flatus. The patient states that she took 2 imodium to alleviate symptoms with minimal relief. Past medical history: AFIB HTN HLD COPD Asthma OBJECTIVE: Vital Signs: Last Vital Signs Temp Pulse Resp BP Pulse Ox 98.8 F 118 H 20 105/74 97 12/11/16 10:23 12/11/16 10:23 12/11/16 10:23 12/11/16 10:23 12/11/16 10:23 GENERAL: Awake, alert, and fully oriented, obesity, in no acute distress HEENT: Atraumatic. PERRLA, EOMI. Moist mucosa. No JVD LUNGS: No distress, speaks full sentences, clear to auscultation bilaterally HEART: Regular rate and rhythm, normal S1 and S2, no murmurs, rubs or gallops, peripheral pulses normal and equal bilaterally. ABDOMEN: RUQ tenderness with positive murphys sign. LUQ tenderness LLQ tenderness normal bowel sounds. Tracheostomy. EXTREMITIES: Right lower extremity cast. No edema. No clubbing or cyanosis. NEUROLOGICAL: Cranial nerves II through XII grossly intact. Normal speech, normal gait, no focal sensorimotor deficits SKIN: Warm, Dry, normal turgor, no rashes or lesions noted. Labs: CBCD WBC 6.6 K/mm3 (4.0-10.0) 12/11/16 11:42 RBC 3.53 M/mm3 (3.60-5.2) L D 12/11/16 11:42 Hgb 9.5 GM/dL (10.7-15.3) L D 12/11/16 11:42 Hct 29.5 % (32.4-45.2) L D 12/11/16 11:42 MCV 83.4 fl (80-96) 12/11/16 11:42 MCHC 32.4 g/dl (32.0-36.0) 12/11/16 11:42 RDW 18.2 % (11.6-15.6) H 12/11/16 11:42 Plt Count 288 K/MM3 (134-434) 12/11/16 11:42 MPV 8.6 fl (7.5-11.1) 12/11/16 11:42 CMP Sodium 140 mmol/L (136-145) 12/11/16 11:42 Potassium 3.5 mmol/L (3.5-5.1) 12/11/16 11:42 Chloride 100 mmol/L (98-107) 12/11/16 11:42 Carbon Dioxide 28 mmol/L (21-32) 12/11/16 11:42 Anion Gap 12 (8-16) 12/11/16 11:42 BUN 8 mg/dL (7-18) D 12/11/16 11:42 Creatinine 0.6 mg/dL (0.55-1.02) 12/11/16 11:42 Creat Clearance w eGFR > 60 (>60) 12/11/16 11:42 Calcium 9.4 mg/dL (8.5-10.1) 12/11/16 11:42 Total Bilirubin 0.3 mg/dL (0.2-1.0) D 12/11/16 11:42 AST 32 U/L (15-37) D 12/11/16 11:42 ALT 112 U/L (12-78) H D 12/11/16 11:42 Alkaline Phosphatase 162 U/L (45-117) H D 12/11/16 11:42 Total Protein 6.7 g/dl (6.4-8.2) 12/11/16 11:42 Albumin 3.2 g/dl (3.4-5.0) L 12/11/16 11:42 Imaging: CT Scan of Abdomen and Pelvis. ASSESSMENT AND PLAN: The patient is a 51 year old female with a past medical history of AFIB, HTN, hyperlipidemia, asthma, COPD who presents to the emergency department with abdominal pain, nausea, vomiting, and diarrhea for two days. 1. Abdominal Pain, Nausea, Vomiting, and Diarrhea- acute on chronic patient with long standing history of colitis. Reports only one episode of loose bowel movement over past 24 hr. Positive right UQ tend and elevated liver enzymes r/o acute cholecystitis. -RUQ US -IVF -PO trial clear liquid diet -Zofran IV for nausea and vomiting -Pain control oral dilaudid -Stool studies -GI consultation noted, empirical vidual started 2. History of respiratory failure s/p trach stable -Nebulizers PRN 3. HTN-stable -Continue current medications 4. Right foot malleolar fracture-stable -Continue with occupational therapy 5. DVT PPX -Heparin subQ Admit to observation. Documentation prepared by Clinton Lopez, acting as medical observer for Dr. Jakob MD. <Mai Robert - Last Filed: 12/12/16 06:53> Teaching Attending Note Name of Resident: Misti Rizvi
[2016-12-12] MEDS: dilTIAZem HCL 60 MG TABLET (FP) PO SCH ×4 (01:01→18:06)
[2016-12-12] MEDS: LACTOBACILLUS ACIDOPHILUS 1 EACH TAB (FP) PO SCH ×3 (01:01→21:52)
[2016-12-12] MEDS: DOCUSATE SODIUM 100 MG CAPSULE (FP) PO SCH ×2 (01:01→22:02)
[2016-12-12] MEDS ORDERED: ALBUTEROL SO4 2.5/IPRATROPIUM 0.5 INH SOL 3 ML VIAL.NEB. NEB ONE (01:44)
[2016-12-12] MEDS ORDERED: ZOLPIDEM TARTRATE 5 MG TABLET ONE (02:04)
[2016-12-12] MEDS ORDERED: HYDROmorphone HCL 2 MG TABLET ONE ×2 (02:04→12:25)
[2016-12-12 08:14] LABS: BASOPHIL 0.5 % (0-2.0); EOSINOPHIL 6.6 % (0-4.5); MCH 27.4 pg (25.7-33.7); MCHC 32.9 g/dl (32.0-36.0); MEAN CELL VOLUME 83.2 fl (80-96); MEAN PLT VOLUME 8.4 fl (7.5-11.1); NEUTROPHILS 66.4 % (42.8-82.8); PLATELET COUNT 244 K/MM3 (134-434); RDW 17.9 % (11.6-15.6); WHITE BLOOD COUNT 6.2 K/mm3 (4.0-10.0)
[2016-12-12 08:45] LABS: ALBUMIN 2.7 g/dl (3.4-5.0); ANION GAP 5 (8-16); CALCIUM 8.4 mg/dL (8.5-10.1); CO2 28 mmol/L (21-32); GLUCOSE,RANDOM 142 mg/dL (74-106)
[2016-12-12 08:50] LABS: ALK PHOS 128 U/L (45-117); AMYLASE 32 U/L (25-115); BILIRUBIN,TOTAL 0.4 mg/dL (0.2-1.0); CREATININE 0.5 mg/dL (0.55-1.02); SGOT/AST 19 U/L (15-37); SGPT/ALT 76 U/L (12-78); TOT PROT 5.6 g/dl (6.4-8.2)
--- NOTE | 2016-12-12 09:18 | PN ---
Physical Exam: SUBJECTIVE: Patient seen and examined Had 2 diarrhea this morning. As per nurse, the diarrhea has foully smell. OBJECTIVE: Vital Signs Temperature 99.0 F 12/12/16 07:11 Pulse Rate 100 H 12/12/16 07:11 Respiratory Rate 20 12/12/16 07:11 Blood Pressure 122/71 12/12/16 07:11 O2 Sat by Pulse Oximetry (%) 97 12/11/16 10:23 GENERAL: The patient is awake, alert, and fully oriented, in no acute distress. HEAD: Normal with no signs of trauma. EYES: PERRL, extraocular movements intact, sclera anicteric, conjunctiva clear. ENT: Ears normal, oropharynx clear without exudates, moist mucous membranes. NECK: Trachea midline, full range of motion, supple. positive for trachea LUNGS: Breath sounds equal, clear to auscultation bilaterally, no wheezes, no crackles, no accessory muscle use. HEART: Regular rate and rhythm, S1, S2 without murmur, rub or gallop. ABDOMEN: Soft, LUQ pain with tenderness to palpations, nondistended, normoactive bowel sounds, voluntary guarding , no rebound, no masses. EXTREMITIES: 2+ pulses, warm, well-perfused, no edema. NEUROLOGICAL: Cranial nerves II through XII grossly intact. Normal speech, gait not observed. PSYCH: Normal mood, normal affect. SKIN: Warm, dry, normal turgor, no rashes or lesions noted CBCD WBC 6.2 K/mm3 (4.0-10.0) 12/12/16 07:55 RBC 2.96 M/mm3 (3.60-5.2) L 12/12/16 07:55 Hgb 8.1 GM/dL (10.7-15.3) L D 12/12/16 07:55 Hct 24.6 % (32.4-45.2) L D 12/12/16 07:55 MCV 83.2 fl (80-96) 12/12/16 07:55 MCHC 32.9 g/dl (32.0-36.0) 12/12/16 07:55 RDW 17.9 % (11.6-15.6) H 12/12/16 07:55 Plt Count 244 K/MM3 (134-434) 12/12/16 07:55 MPV 8.4 fl (7.5-11.1) 12/12/16 07:55 CMP Sodium 136 mmol/L (136-145) 12/12/16 07:55 Potassium 3.1 mmol/L (3.5-5.1) L 12/12/16 07:55 Chloride 103 mmol/L (98-107) 12/12/16 07:55 Carbon Dioxide 28 mmol/L (21-32) 12/12/16 07:55 Anion Gap 5 (8-16) L 12/12/16 07:55 BUN 6 mg/dL (7-18) L D 12/12/16 07:55 Creatinine 0.5 mg/dL (0.55-1.02) L 12/12/16 07:55 Creat Clearance w eGFR > 60 (>60) 12/12/16 07:55 Random Glucose 142 mg/dL (74-106) H 12/12/16 07:55 Calcium 8.4 mg/dL (8.5-10.1) L 12/12/16 07:55 Total Bilirubin 0.4 mg/dL (0.2-1.0) D 12/12/16 07:55 AST 19 U/L (15-37) D 12/12/16 07:55 ALT 76 U/L (12-78) D 12/12/16 07:55 Alkaline Phosphatase 128 U/L (45-117) H D 12/12/16 07:55 Total Protein 5.6 g/dl (6.4-8.2) L 12/12/16 07:55 Albumin 2.7 g/dl (3.4-5.0) L 12/12/16 07:55 Active Medications Generic Name Dose Route Start Last Admin Trade Name Freq PRN Reason Stop Dose Admin Acetaminophen 650 mg 12/11/16 19:55 Tylenol - PO Q6H PRN PAIN Albuterol/Ipratropium 1 amp 12/11/16 22:00 12/11/16 23:05 Duoneb - NEB 1 amp Q4HPO EMM[facility] Administration Alprazolam 0.25 mg 12/11/16 22:00 12/11/16 23:28 Xanax - PO 0.25 mg BID EMM[facility] Administration Baclofen 20 mg 12/11/16 22:00 12/11/16 23:00 Lioresal - PO 20 mg TID EMM[facility] Administration Budesonide/Formoterol Fumarate 2 puff 12/11/16 22:00 12/11/16 23:00 Symbicort 160/4.5mcg - IH 2 puff BID [facility] Administration Cholecalciferol 2,000 unit 12/12/16 10:00 Vitamin D3 - PO DAILY E[facility] Diltiazem HCl 60 mg 12/12/16 00:00 12/12/16 01:01 Cardizem - PO 60 mg Q6HPO EMMY Administration Diphenhydramine HCl 25 mg 12/11/16 19:55 12/11/16 23:00 Benadryl Oral Solution - PO 25 mg Q4H PRN Administration FOR [facility]CH[facility] Docusate Sodium 300 mg 12/11/16 22:00 12/12/16 01:01 Colace - PO Not Given HS [facility] Doxepin HCl 25 mg 12/11/16 22:00 12/11/16 23:00 Sinequan - PO 25 mg HS [facility] Administration Eletriptan 40 mg 12/11/16 19:55 Relpax - PO DAILY PRN [place] Gabapentin 300 mg 12/11/16 22:00 12/11/16 23:00 Neurontin - PO 300 mg TID [facility] Administration Heparin Sodium (Porcine) 5,000 unit 12/11/16 22:00 12/11/16 23:00 Heparin - SQ 5,000 unit TID [facility] Administration Hydromorphone HCl 2 mg 12/11/16 19:55 Dilaudid - PO Q4HWA PRN PAIN Lactated Ringer's 1,000 mls @ 150 mls/hr 12/11/16 17:00 12/11/16 20:35 Lactated Ringers Solution IV 150 mls/hr ASDIR [facility] Administration Insulin Aspart 1 vial 12/11/16 22:00 12/11/16 23:00 Novolog Vial Sliding Scale - SQ Not Given ACHS [facility] Protocol Lactobacillus Acidophilus 1 tab 12/11/16 22:00 12/12/16 01:01 Bacid - PO 1 tab BID [facility] Administration Levothyroxine Sodium 25 mcg 12/12/16 07:00 Synthroid - PO DAILY@0700 [facility] Magnesium Oxide 400 mg 12/11/16 22:00 12/11/16 23:00 Mag-Ox - PO 400 mg BID [facility] Administration Metoprolol Tartrate 25 mg 12/11/16 22:00 12/11/16 23:00 Lopressor - PO 25 mg TID [facility] Administration Multi-Ingredient Ointment 1 applic 12/11/16 22:00 12/11/16 23:00 Zinc Oxide TP 1 applic BID [facility] Administration Multivitamins/Minerals/Vitamin C 1 tab 12/12/16 10:00 Tab-A-Vit - PO DAILY [facility] Pancrelipase 3 cap 12/12/16 08:00 Eamon Turner 6,000 Units Capsule PO TIDCM [facility] Pantoprazole Sodium 40 mg 12/11/16 22:00 12/11/16 23:00 Protonix - PO 40 mg BID [facility] Administration Polyethylene Glycol 17 gm 12/12/16 10:00 Miralax (For Daily Use) - PO DAILY [facility] Prednisone 10 mg 12/12/16 10:00 Deltasone - PO DAILY [facility] Roflumilast 500 mcg 12/12/16 10:00 Daliresp - PO DAILY [facility] Senna 2 tab 12/11/16 22:00 12/11/16 23:00 Senna - PO Not Given HS [facility] Zolpidem Tartrate 10 mg 12/11/16 19:55 Ambien - PO HS PRN INSOMNIA Medication Instructions Recorded Acetaminophen [Tylenol .Regular 650 mg PO Q6H PRN #0 tablet 06/05/16 Strength -] Levothyroxine [Synthroid -] 25 mcg PO DAILY@0700 tablet 06/05/16 Albuterol 2.5/Ipratropium 0.5 1 amp NEB Q4HPO amp 09/17/16 [Duoneb -] Alprazolam [Xanax] 0.25 mg PO BID tablet MDD 2 09/17/16 Diltiazem [Cardizem -] 60 mg PO Q6HPO tablet 09/17/16 Magnesium Oxide [Mag-Ox -] 400 mg PO BID tablet 09/17/16 Albuterol Sulfate Inhaler - 2 puff IH Q4H PRN #0 inhaler 09/23/16 [Ventolin HFA Inhaler -] Baclofen [Lioresal -] 20 mg PO TID 10/01/16 Docusate Sodium [Colace -] 300 mg PO HS 10/01/16 Budesonide/Formeterol Fumarate 2 inh PO BID 11/01/16 [SYMBICORT 160/4.5mcg -] Diphenhydramine [Benadryl 12.5 25 mg PO Q4H PRN 11/01/16 MG/5 ML Oral Solution -] Doxepin HCl [Sinequan -] 25 mg PO HS 11/01/16 Eletriptan Hydrobromide [Relpax -] 40 mg PO PRN 11/01/16 Gabapentin [Neurontin -] 300 mg PO TID 11/01/16 Metoprolol Tartrate [Lopressor -] 25 mg PO TID 11/01/16 Omeprazole 40 mg PO BID 11/01/16 Polyethylene Glycol 3350 [Miralax 17 gm PO DAILY 11/01/16 119 gm Btl -] Roflumilast [Daliresp] 500 mcg PO DAILY 11/01/16 Sennosides [Senna] 2 tab PO HS 11/01/16 Zolpidem Tartrate [Ambien] 10 mg PO HS PRN MDD 1 11/01/16 Lipase/Protease/Amylase [Eamon Turner 3 cap PO TIDCM capsule. 11/07/16 6,000 Units Capsule] Insulin Sliding Scale [Novolog 0 units SQ ACHS PRN 11/08/16 Vial Sliding Scale -] Doxepin HCl [Sinequan -] 25 mg PO HS capsule 11/20/16 Hydromorphone [Dilaudid -] 2 mg PO Q8H PRN #0 tablet MDD 3 11/20/16 Lactobacillus Acidophilus [Bacid -] 1 tab PO BID tab 11/20/16 Loperamide HCl [Imodium -] 2 mg PO Q8H PRN #0 capsule 11/20/16 Metoclopramide HCl [Reglan -] 10 mg PO TIDAC tablet 11/20/16 Multivitamins [Multivit ([facility] 1 tab PO DAILY tab 11/20/16 Formulary)] Ondansetron [Zofran -] 4 mg PO Q4H PRN #0 tablet 11/20/16 Zinc Oxide 1 applic TP BID tube 11/20/16 Insulin (Levemir) [Levemir Vial] 5 unit SQ DAILY #1 vial 11/21/16 Cholecalciferol (Vitamin D3) 2,000 unit PO DAILY #30 tab 11/28/16 [Vitamin D3 -] Heparin - 5,000 unit SQ TID vial 11/28/16 Prednisone [Deltasone -] 20 mg PO DAILY tablet 11/28/16 Albuterol Sulfate Inhaler - 2 puff IH Q4H PRN #0 inhaler 11/29/16 [Ventolin HFA Inhaler -] Hydromorphone [Dilaudid -] 2 mg PO Q4HWA PRN #0 tablet MDD 6 11/29/16 Prednisone 10 mg PO DAILY #15 tablet 11/29/16 ASSESSMENT/PLAN: Patient is a 51 year old female with a PMHx of Afib, DM, HTN, HLD, 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 # Acute abdominal pain with diarrhea most likely due to cdiff, pending stool for cdiff GI consult to start Flagyl empirically 500mg po tid. IVF continue Dilaudid for pain that patient is on will continue. will check mag level in am. # Acute hypokalemia IVF with 40meq kcl x 2 liters ordered # COPD with chronic hypoxic failure No current exacerbation ,continue trach collar and treatment -keep O2 sat >88% ,on Daliresp, Continue home medication Prednisone 10mg PO daily -Continue bronchodilators. #Anxiety disorder/ Depression continue Xanax and doxepin # Hx of Hypothryoidism continue synthroid # T2DM Novolog sliding scale , levemir 5 u Sq BID # hx of PAF continue cardizem Po and lopressor Po # Hx of HTN continue po cardizem Po and lopressor Po DVT Px: SCD, heparin SQ Visit type - Emergency Visit Emergency Visit: Yes ED Registration Date: 12/11/16 Care time: The patient presented to the Emergency Department on the above date and was hospitalized for further evaluation of their emergent condition. - New Patient This patient is new to me today: Yes Date on this admission: 12/12/16 - Critical Care Critical Care patient: No - Discharge Referral Referred to [facility] No
[2016-12-12] MEDS: LIPASE/PROTEASE/AMYLASE 6,000 UNIT CAPSULE PO SCH ×3 (11:19→18:02)
[2016-12-12] MEDS: predniSONE 10 MG TABLET (UD) PO SCH (11:21)
[2016-12-12] MEDS: ROFLUMILAST 500 MCG TABLET PO SCH (11:21)
[2016-12-12] MEDS: MAGNESIUM OXIDE 400 MG TABLET (FP) PO SCH ×2 (11:22→22:02)
[2016-12-12] MEDS: PANTOPRAZOLE 40 MG TABLET (FP) PO SCH ×2 (11:23→22:03)
[2016-12-12] MEDS: MULTIVITAMINS (DAILY MVI) TABLET (FP) PO SCH (11:23)
[2016-12-12] MEDS: CHOLECALCIFEROL (VITAMIN D3) 1,000 UNIT TABLET (FP) PO SCH (11:24)
[2016-12-12] MEDS: HYDROmorphone HCL 2 MG TABLET PO PRN ×2 (11:40→15:13)
[2016-12-12] MEDS: POLYETHYLENE GLYCOL 3350 119 GM BTL PO SCH (12:21)
[2016-12-12] MEDS: BUDESONIDE/FORMETEROL FUMARATE 160/4.5 mcg INHALER IH SCH ×2 (12:22→22:03)
[2016-12-12] MEDS ORDERED: ALPRAZolam 0.25 MG TABLET ONE (12:24)
[2016-12-12] MEDS: ALPRAZolam 0.25 MG TABLET PO SCH ×2 (12:29→22:04)
[2016-12-12] MEDS: INSULIN SLIDING SCALE (NOVOLOG) 1 VIAL SQ SCH ×4 (12:36→22:03)
[2016-12-12] MEDS: ALBUTEROL SO4 2.5/IPRATROPIUM 0.5 INH SOL 3 ML VIAL.NEB. NEB SCH ×4 (14:30→22:16)
[2016-12-12] MEDS: METOPROLOL TARTRATE 25 MG TABLET (FP) PO SCH ×3 (14:33→22:02)
[2016-12-12] MEDS: diphenhydrAMINE HCL 12.5 MG/5 ML UNIT-DOSE CUPS PO PRN ×2 (14:33→22:04)
[2016-12-12] MEDS: GABAPENTIN 300 MG CAPSULE (FP) PO SCH ×3 (14:33→22:03)
[2016-12-12] MEDS: BACLOFEN 10 MG TABLET (FP) PO SCH ×3 (14:34→22:02)
[2016-12-12] MEDS: HEPARIN NA (PORCINE) 5,000 UNITS/ML 1ML VIAL SQ SCH ×3 (14:35→21:52)
[2016-12-12] MEDS: ZINC OXIDE 20% TOPICAL OINTMENT 30 GM TUBE TP SCH ×2 (14:36→22:04)
--- NOTE | 2016-12-12 14:40 | CONSULT ---
Consult Consult Specialty:: Surgery Reason for Consultation:: Abdominal pain - History of Present Illness History of Present Illness: 51 female presents for headaches x 4 days Also states that she was having vomiting, diarrhea and LLQ pain x 2 days Denies blood in the stool or hematemesis Was able to tolerate liquids in the shelter Consulted for persistent abdominal pain Was seen in the past for similar complaints Seen by GI as well as another surgeon whom stated there was no surgical management at that time History of multiple episodes of UTIs Last C Diff was negative She has remained afebrile with normal vitals signs Labs including WBC, LFTs, Cr, Amylase, Lipase have all been WNL CT A/P demonstrated no free air, no obstruction, no organized collection, normal colon U/S showed normal gallbladder, CBD WNL, hepatomegaly - Past Medical History Cardio/Vascular: Yes: AFIB (Paroxysmal), HTN, Hyperlipdemia Pulmonary: Yes: Asthma, COPD, O2 Dependent Renal/: Yes: Cancer (Uterine), Other ([place] in the past) Infectious Disease: Yes: C-Diff (june 2014), Other (Osteomyelitis of thoracic spine) Psych: Yes: Anxiety, Bipolar, Depression Musculoskeletal: Yes: Chronic low back pain Additional Medical History: Frequent c/o abdominal pain-extensive w/u in the past negative. Presumed adhesions from prior surgeries. - Past Surgical History Past Surgical History: Yes: Hysterectomy (with BSO) - Alcohol/Substance Use Hx Alcohol Use: No - Smoking History Smoking history: Unknown if ever smoked Have you smoked in the past 12 months: No Aproximately how many cigarettes per day: 3 If you are a former smoker, when did you quit?: 10/11/14 - Social History Usual Living Arrangement: With Significant Other 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) History of Recent Travel: No Home Medications - Allergies Allergies/Adverse Reactions: Allergies Allergy/AdvReac Type Severity Reaction Status Date / Time oxycodone [Oxycodone] Allergy Severe Nausea Verified 11/25/16 19:58 oxycodone HCl [From Percocet] Allergy Severe Nausea Verified 11/25/16 19:58 aspirin Allergy Mild Verified 11/25/16 19:58 blueberry [Blueberry] Allergy Mild Swelling Verified 11/25/16 19:58 promethazine HCl Allergy Mild Verified 11/25/16 19:58 [From Phenergan] promethazine Allergy Verified 11/25/16 19:58 - Home Medications Home Medications: Ambulatory Orders Acetaminophen [Tylenol .Regular Strength -] 650 mg PO Q6H PRN #0 tablet Levothyroxine [Synthroid -] 25 mcg PO DAILY@0700 tablet 06/05/16 Albuterol 2.5/Ipratropium 0.5 [Duoneb -] 1 amp NEB Q4HPO amp 09/17/16 Alprazolam [Xanax] 0.25 mg PO BID tablet MDD 2 09/17/16 Diltiazem [Cardizem -] 60 mg PO Q6HPO tablet 09/17/16 Magnesium Oxide [Mag-Ox -] 400 mg PO BID tablet 09/17/16 Albuterol Sulfate Inhaler - [Ventolin HFA Inhaler -] 2 puff IH Q4H PRN #0 inhaler 09/23/16 Baclofen [Lioresal -] 20 mg PO TID 10/01/16 Docusate Sodium [Colace -] 300 mg PO HS 10/01/16 Budesonide/Formeterol Fumarate [SYMBICORT 160/4.5mcg -] 2 inh PO BID 11/01/16 Diphenhydramine [Benadryl 12.5 MG/5 ML Oral Solution -] 25 mg PO Q4H PRN Doxepin HCl [Sinequan -] 25 mg PO HS 11/01/16 Eletriptan Hydrobromide [Relpax -] 40 mg PO PRN 11/01/16 Gabapentin [Neurontin -] 300 mg PO TID 11/01/16 Metoprolol Tartrate [Lopressor -] 25 mg PO TID 11/01/16 Omeprazole 40 mg PO BID 11/01/16 Polyethylene Glycol 3350 [Miralax 119 gm Btl -] 17 gm PO DAILY 11/01/16 Roflumilast [Daliresp] 500 mcg PO DAILY 11/01/16 Sennosides [Senna] 2 tab PO HS 11/01/16 Zolpidem Tartrate [Ambien] 10 mg PO HS PRN MDD 1 11/01/16 Lipase/Protease/Amylase [Eamon Turner 6,000 Units Capsule] 3 cap PO TIDCM capsule. 11/07/16 Insulin Sliding Scale [Novolog Vial Sliding Scale -] 0 units SQ ACHS PRN Doxepin HCl [Sinequan -] 25 mg PO HS capsule 11/20/16 Hydromorphone [Dilaudid -] 2 mg PO Q8H PRN #0 tablet MDD 3 11/20/16 Lactobacillus Acidophilus [Bacid -] 1 tab PO BID tab 11/20/16 Loperamide HCl [Imodium -] 2 mg PO Q8H PRN #0 capsule 11/20/16 Metoclopramide HCl [Reglan -] 10 mg PO TIDAC tablet 11/20/16 Multivitamins [Multivit ([facility] Formulary)] 1 tab PO DAILY tab 11/20/16 Ondansetron [Zofran -] 4 mg PO Q4H PRN #0 tablet 11/20/16 Zinc Oxide 1 applic TP BID tube 11/20/16 Insulin (Levemir) [Levemir Vial] 5 unit SQ DAILY #1 vial 11/21/16 Cholecalciferol (Vitamin D3) [Vitamin D3 -] 2,000 unit PO DAILY #30 tab Heparin - 5,000 unit SQ TID vial 11/28/16 Prednisone [Deltasone -] 20 mg PO DAILY tablet 11/28/16 Albuterol Sulfate Inhaler - [Ventolin HFA Inhaler -] 2 puff IH Q4H PRN #0 inhaler 11/29/16 Hydromorphone [Dilaudid -] 2 mg PO Q4HWA PRN #0 tablet MDD 6 11/29/16 Prednisone 10 mg PO DAILY #15 tablet 11/29/16 Family Disease History - Family Disease History Family Disease History: Diabetes: Mother (heart surgery), Heart Disease: Mother , CA: Father (leukemia) Review of Systems - Review of Systems Constitutional: denies: Chills, Fever Cardiovascular: denies: Chest Pain Respiratory: reports: SOB on Exertion Gastrointestinal: reports: Abdominal Pain, Diarrhea, Nausea, Vomiting. denies: Melena Pain Intensity: 4 Physical Exam Vital Signs: Vital Signs Temperature 99.7 F H 12/12/16 09:59 Pulse Rate 82 12/12/16 09:59 Respiratory Rate 20 12/12/16 09:59 Blood Pressure 121/56 12/12/16 09:59 O2 Sat by Pulse Oximetry (%) 97 12/11/16 10:23 Constitutional: Yes: Calm Neck: Yes: Other (Tracheostomy tube in place) Cardiovascular: Yes: Pulse Irregular Respiratory: Yes: Diminished Gastrointestinal: Yes: Soft, Abdomen, Obese, Tenderness (LLQ). No: Tenderness, Rebound Neurological: Yes: Alert, Oriented Labs: CBC, BMP 12/12/16 07:55 12/12/16 07:55 Imaging - Results Cat Scan: Report Reviewed, Image Reviewed Ultrasound: Report Reviewed, Image Reviewed Problem List - Problems (1) Chronic abdominal pain Code(s): R10.9 - UNSPECIFIED ABDOMINAL PAIN G89.29 - OTHER CHRONIC PAIN (2) Chronic respiratory failure with hypoxia Code(s): J96.11 - CHRONIC RESPIRATORY FAILURE WITH HYPOXIA Assessment/Plan 51 female with abdominal pain Has had similar pain in the past on multiple occasions AVSS Labs WNL No surgical pathology on imaging that correlates with her pain GI following Pain control Stool for C Diff and culture No acute surgical intervention at this time
[2016-12-12] MEDS: ONDANSETRON 4 MG/2 ML VIAL IVPB PRN ×2 (14:43→18:45)
[2016-12-12] MEDS: LACTATED RINGERS SOLUTION 1,000 ML IV SCH ×2 (14:43→17:51)
[2016-12-12] MEDS: LEVOTHYROXINE NA 25 MCG TABLET (FP) PO SCH (14:45)
[2016-12-12] MEDS ORDERED: PT OWN MED DRAWER 7, Y5N ONE (17:59)
[2016-12-12] MEDS: D5-1/2NS+40 MEQ KCL - 1,000 ML IV SCH (18:52)
[2016-12-12] MEDS: metroNIDAZOLE 250 MG TABLET PO SCH (22:02)
[2016-12-12] MEDS: SENNOSIDES 8.6MG TABLET (FP) PO SCH (22:03)
[2016-12-12] MEDS: DOXEPIN HCL 25 MG CAPSULE PO SCH (22:03)
[2016-12-12] MEDS: ZOLPIDEM TARTRATE 5 MG TABLET PO PRN (22:04)
[2016-12-13] MEDS: ONDANSETRON 4 MG/2 ML VIAL IVPB PRN ×5 (01:34→23:35)
[2016-12-13] MEDS: ALBUTEROL SO4 2.5/IPRATROPIUM 0.5 INH SOL 3 ML VIAL.NEB. NEB SCH ×6 (02:30→22:35)
[2016-12-13] MEDS: diphenhydrAMINE HCL 12.5 MG/5 ML UNIT-DOSE CUPS PO PRN ×5 (03:52→23:37)
[2016-12-13] MEDS: D5-1/2NS+40 MEQ KCL - 1,000 ML IV SCH ×2 (06:00→18:47)
[2016-12-13] MEDS: dilTIAZem HCL 60 MG TABLET (FP) PO SCH ×4 (06:42→17:29)
[2016-12-13] MEDS: BACLOFEN 10 MG TABLET (FP) PO SCH ×3 (06:46→22:58)
[2016-12-13] MEDS: metroNIDAZOLE 250 MG TABLET PO SCH ×3 (06:46→22:58)
[2016-12-13] MEDS: INSULIN SLIDING SCALE (NOVOLOG) 1 VIAL SQ SCH ×4 (06:46→22:58)
[2016-12-13] MEDS: METOPROLOL TARTRATE 25 MG TABLET (FP) PO SCH ×3 (06:46→22:58)
[2016-12-13] MEDS: GABAPENTIN 300 MG CAPSULE (FP) PO SCH ×3 (06:46→22:58)
[2016-12-13] MEDS: HEPARIN NA (PORCINE) 5,000 UNITS/ML 1ML VIAL SQ SCH (06:46)
[2016-12-13] MEDS: LEVOTHYROXINE NA 25 MCG TABLET (FP) PO SCH (06:47)
[2016-12-13 07:43] LABS: BASOPHIL 0.9 % (0-2.0); MCHC 32.2 g/dl (32.0-36.0); MEAN CELL VOLUME 83.9 fl (80-96); MEAN PLT VOLUME 8.2 fl (7.5-11.1); NEUTROPHILS 59.5 % (42.8-82.8); PLATELET COUNT 233 K/MM3 (134-434); RDW 18.2 % (11.6-15.6)
[2016-12-13] MEDS ORDERED: PT OWN MED DRAWER 7, Y5N ONE ×3 (08:13→15:46)
[2016-12-13] MEDS: LIPASE/PROTEASE/AMYLASE 6,000 UNIT CAPSULE PO SCH ×3 (08:30→18:15)
[2016-12-13 08:35] LABS: ALBUMIN 2.6 g/dl (3.4-5.0); ANION GAP 11 (8-16); CALCIUM 7.8 mg/dL (8.5-10.1); CO2 26 mmol/L (21-32); GLUCOSE,RANDOM 179 mg/dL (74-106)
[2016-12-13 08:38] LABS: ALK PHOS 119 U/L (45-117); BILIRUBIN,TOTAL 0.2 mg/dL (0.2-1.0); CREATININE 0.7 mg/dL (0.55-1.02); SGOT/AST 13 U/L (15-37); SGPT/ALT 56 U/L (12-78); TOT PROT 5.6 g/dl (6.4-8.2)
[2016-12-13] MEDS: PANTOPRAZOLE 40 MG TABLET (FP) PO SCH ×2 (09:27→22:58)
[2016-12-13] MEDS: CHOLECALCIFEROL (VITAMIN D3) 1,000 UNIT TABLET (FP) PO SCH (09:27)
[2016-12-13] MEDS: MAGNESIUM OXIDE 400 MG TABLET (FP) PO SCH (09:27)
[2016-12-13] MEDS: ALPRAZolam 0.25 MG TABLET PO SCH ×2 (09:27→22:59)
[2016-12-13] MEDS: MULTIVITAMINS (DAILY MVI) TABLET (FP) PO SCH (09:28)
[2016-12-13] MEDS: LACTOBACILLUS ACIDOPHILUS 1 EACH TAB (FP) PO SCH ×2 (09:28→22:57)
[2016-12-13] MEDS: predniSONE 10 MG TABLET (UD) PO SCH (09:28)
[2016-12-13] MEDS: POLYETHYLENE GLYCOL 3350 119 GM BTL PO SCH ×2 (09:29→18:29)
[2016-12-13] MEDS: BUDESONIDE/FORMETEROL FUMARATE 160/4.5 mcg INHALER IH SCH ×2 (09:30→22:58)
[2016-12-13] MEDS: ZINC OXIDE 20% TOPICAL OINTMENT 30 GM TUBE TP SCH ×2 (10:16→22:59)
[2016-12-13] MEDS: ROFLUMILAST 500 MCG TABLET PO SCH (10:29)
--- NOTE | 2016-12-13 10:54 | PN ---
Physical Exam: SUBJECTIVE: Patient seen and examined Patient is c/o having itchiness all over, c/o some increased anxiety and chest pain at this time, No diarrhea today ,states no blood in the stool, Also feeling nauseas at times. OBJECTIVE: Vital Signs Temperature 98.7 F 12/13/16 06:45 Pulse Rate 101 H 12/13/16 06:45 Respiratory Rate 20 12/13/16 06:45 Blood Pressure 104/60 12/13/16 06:45 O2 Sat by Pulse Oximetry (%) 98 12/12/16 21:00 GENERAL: The patient is awake, alert, and fully oriented, in no acute distress. HEAD: Normal with no signs of trauma. EYES: PERRL, extraocular movements intact, sclera anicteric, conjunctiva clear. ENT: Ears normal, oropharynx clear without exudates, moist mucous membranes. NECK: Trachea midline, full range of motion, supple. positive for trachea LUNGS: Breath sounds equal, clear to auscultation bilaterally, no wheezes, no crackles, no accessory muscle use. HEART: Regular rate and rhythm, S1, S2 without murmur, rub or gallop. ABDOMEN: Soft, LUQ pain with mild tenderness to palpations, positive BS, voluntary guarding , no rebound, no masses. Positive for Hepatomegaly 20.6 cm in length. EXTREMITIES: 2+ pulses, warm, well-perfused, no edema. positive for RLE cast s/ p fall NEUROLOGICAL: Cranial nerves II through XII grossly intact. Normal speech, gait not observed. PSYCH: Normal mood, normal affect. SKIN: Warm, dry, normal turgor, no rashes or lesions noted CBCD WBC 6.0 K/mm3 (4.0-10.0) 12/13/16 06:30 RBC 2.86 M/mm3 (3.60-5.2) L 12/13/16 06:30 Hgb 7.7 GM/dL (10.7-15.3) L 12/13/16 06:30 Hct 24.0 % (32.4-45.2) L 12/13/16 06:30 MCV 83.9 fl (80-96) 12/13/16 06:30 MCHC 32.2 g/dl (32.0-36.0) 12/13/16 06:30 RDW 18.2 % (11.6-15.6) H 12/13/16 06:30 Plt Count 233 K/MM3 (134-434) 12/13/16 06:30 MPV 8.2 fl (7.5-11.1) 12/13/16 06:30 CMP Sodium 141 mmol/L (136-145) 12/13/16 06:30 Potassium 3.7 mmol/L (3.5-5.1) 12/13/16 06:30 Chloride 104 mmol/L (98-107) 12/13/16 06:30 Carbon Dioxide 26 mmol/L (21-32) 12/13/16 06:30 Anion Gap 11 (8-16) 12/13/16 06:30 BUN 3 mg/dL (7-18) L D 12/13/16 06:30 Creatinine 0.7 mg/dL (0.55-1.02) D 12/13/16 06:30 Creat Clearance w eGFR > 60 (>60) 12/13/16 06:30 Random Glucose 179 mg/dL (74-106) H D 12/13/16 06:30 Calcium 7.8 mg/dL (8.5-10.1) L 12/13/16 06:30 Total Bilirubin 0.2 mg/dL (0.2-1.0) D 12/13/16 06:30 AST 13 U/L (15-37) L D 12/13/16 06:30 ALT 56 U/L (12-78) D 12/13/16 06:30 Alkaline Phosphatase 119 U/L (45-117) H 12/13/16 06:30 Total Protein 5.6 g/dl (6.4-8.2) L 12/13/16 06:30 Albumin 2.6 g/dl (3.4-5.0) L 12/13/16 06:30 Active Medications Generic Name Dose Route Start Last Admin Trade Name Freq PRN Reason Stop Dose Admin Acetaminophen 650 mg 12/11/16 19:55 Tylenol - PO Q6H PRN PAIN Albuterol/Ipratropium 1 amp 12/11/16 22:00 12/13/16 05:50 Duoneb - NEB Not Given Q4HPO EMMY Alprazolam 0.25 mg 12/11/16 22:00 12/13/16 09:27 Xanax - PO 0.25 mg BID EMMY Administration Baclofen 20 mg 12/11/16 22:00 12/13/16 06:46 Lioresal - PO 20 mg TID EMMY Administration Budesonide/Formoterol Fumarate 2 puff 12/11/16 22:00 12/13/16 09:30 Symbicort 160/4.5mcg - IH 2 puff BID EMMY Administration Cholecalciferol 2,000 unit 12/12/16 10:00 12/13/16 09:27 Vitamin D3 - PO 2,000 unit DAILY EMMY Administration Diltiazem HCl 60 mg 12/12/16 00:00 12/13/16 06:42 Cardizem - PO 60 mg Q6HPO EMMY Administration Diphenhydramine HCl 25 mg 12/11/16 19:55 12/13/16 09:05 Benadryl Oral Solution - PO 25 mg Q4H PRN Administration FOR ITCHING Docusate Sodium 300 mg 12/11/16 22:00 12/12/16 22:02 Colace - PO Not Given HS EMMY Doxepin HCl 25 mg 12/11/16 22:00 12/12/16 22:03 Sinequan - PO 25 mg HS EMMY Administration Eletriptan 40 mg 12/11/16 19:55 Relpax - PO DAILY PRN HEADACHE Gabapentin 300 mg 12/11/16 22:00 12/13/16 06:46 Neurontin - PO 300 mg TID EMMY Administration Heparin Sodium (Porcine) 5,000 unit 12/11/16 22:00 12/13/16 06:46 Heparin - SQ 5,000 unit TID EMMY Administration Hydromorphone HCl 4 mg 12/12/16 18:04 12/13/16 08:52 Dilaudid - PO 4 mg Q4HWA PRN Administration PAIN Dextrose/Sodium Chloride 1,000 mls @ 100 mls/hr 12/12/16 18:45 12/12/16 18:52 D5-1/2ns+40 Meq Kcl - IV 12/14/16 04:44 100 mls/hr ASDIR EMMY Administration Insulin Aspart 1 vial 12/11/16 22:00 12/13/16 06:46 Novolog Vial Sliding Scale - SQ 2 units ACHS EMMY Administration Protocol Lactobacillus Acidophilus 1 tab 12/11/16 22:00 12/13/16 09:28 Bacid - PO 1 tab BID EMMY Administration Levothyroxine Sodium 25 mcg 12/12/16 07:00 12/13/16 06:47 Synthroid - PO 25 mcg DAILY@0700 EMMY Administration Magnesium Oxide 400 mg 12/11/16 22:00 12/13/16 09:27 Mag-Ox - PO 400 mg BID EMMY Administration Metoprolol Tartrate 25 mg 12/11/16 22:00 12/13/16 06:46 Lopressor - PO 25 mg TID EMMY Administration Metronidazole 500 mg 12/12/16 22:00 12/13/16 06:46 Flagyl - PO 500 mg TID EMMY Administration Multi-Ingredient Ointment 1 applic 12/11/16 22:00 12/13/16 10:16 Zinc Oxide TP 1 applic BID EMMY Administration Multivitamins/Minerals/Vitamin C 1 tab 12/12/16 10:00 12/13/16 09:28 Tab-A-Vit - PO 1 tab DAILY EMMY Administration Ondansetron HCl 4 mg 12/12/16 14:04 12/13/16 07:03 Zofran Injection IVPB 4 mg Q4H PRN Administration NAUSEA AND/OR VOMITING Pancrelipase 3 cap 12/12/16 08:00 12/13/16 08:[address] 6,000 Units Capsule PO 3 cap TIDCM E[facility]Y Administration Pantoprazole Sodium 40 mg 12/11/16 22:00 12/13/16 09:27 Protonix - PO 40 mg BID EMMY Administration Polyethylene Glycol 17 gm 12/12/16 10:00 12/13/16 09:29 Miralax (For Daily Use) - PO 17 gm DAILY EMMY Administration Prednisone 10 mg 12/12/16 10:00 12/13/16 09:28 Deltasone - PO 10 mg DAILY EMMY Administration Roflumilast 500 mcg 12/12/16 10:00 12/13/16 10:29 Daliresp - PO 500 mcg DAILY EMMY Administration Senna 2 tab 12/11/16 22:00 12/12/16 22:03 Senna - PO Not Given HS EMMY Zolpidem Tartrate 10 mg 12/11/16 19:55 12/12/16 22:04 Ambien - PO 10 mg HS PRN Administration INSOMNIA Medication Instructions Recorded Acetaminophen [Tylenol .Regular 650 mg PO Q6H PRN #0 tablet 06/05/16 Strength -] Levothyroxine [Synthroid -] 25 mcg PO DAILY@0700 tablet 06/05/16 Albuterol 2.5/Ipratropium 0.5 1 amp NEB Q4HPO amp 09/17/16 [Duoneb -] Alprazolam [Xanax] 0.25 mg PO BID tablet MDD 2 09/17/16 Diltiazem [Cardizem -] 60 mg PO Q6HPO tablet 09/17/16 Magnesium Oxide [Mag-Ox -] 400 mg PO BID tablet 09/17/16 Albuterol Sulfate Inhaler - 2 puff IH Q4H PRN #0 inhaler 09/23/16 [Ventolin HFA Inhaler -] Baclofen [Lioresal -] 20 mg PO TID 10/01/16 Docusate Sodium [Colace -] 300 mg PO HS 10/01/16 Budesonide/Formeterol Fumarate 2 inh PO BID 11/01/16 [SYMBICORT 160/4.5mcg -] Diphenhydramine [Benadryl 12.5 25 mg PO Q4H PRN 11/01/16 MG/5 ML Oral Solution -] Doxepin HCl [Sinequan -] 25 mg PO HS 11/01/16 Eletriptan Hydrobromide [Relpax -] 40 mg PO PRN 11/01/16 Gabapentin [Neurontin -] 300 mg PO TID 11/01/16 Metoprolol Tartrate [Lopressor -] 25 mg PO TID 11/01/16 Omeprazole 40 mg PO BID 11/01/16 Polyethylene Glycol 3350 [Miralax 17 gm PO DAILY 11/01/16 119 gm Btl -] Roflumilast [Daliresp] 500 mcg PO DAILY 11/01/16 Sennosides [Senna] 2 tab PO HS 11/01/16 Zolpidem Tartrate [Ambien] 10 mg PO HS PRN MDD 1 11/01/16 Lipase/Protease/Amylase [[place] Dr 3 cap PO TIDCM capsule. 11/07/16 6,000 Units Capsule] Insulin Sliding Scale [Novolog 0 units SQ ACHS PRN 11/08/16 Vial Sliding Scale -] Doxepin HCl [Sinequan -] 25 mg PO HS capsule 11/20/16 Hydromorphone [Dilaudid -] 2 mg PO Q8H PRN #0 tablet MDD 3 11/20/16 Lactobacillus Acidophilus [Bacid -] 1 tab PO BID tab 11/20/16 Loperamide HCl [Imodium -] 2 mg PO Q8H PRN #0 capsule 11/20/16 Metoclopramide HCl [Reglan -] 10 mg PO TIDAC tablet 11/20/16 Multivitamins [Multivit ([facility] 1 tab PO DAILY tab 11/20/16 Formulary)] Ondansetron [Zofran -] 4 mg PO Q4H PRN #0 tablet 11/20/16 Zinc Oxide 1 applic TP BID tube 11/20/16 Insulin (Levemir) [Levemir Vial] 5 unit SQ DAILY #1 vial 11/21/16 Cholecalciferol (Vitamin D3) 2,000 unit PO DAILY #30 tab 11/28/16 [Vitamin D3 -] Heparin - 5,000 unit SQ TID vial 11/28/16 Prednisone [Deltasone -] 20 mg PO DAILY tablet 11/28/16 Albuterol Sulfate Inhaler - 2 puff IH Q4H PRN #0 inhaler 11/29/16 [Ventolin HFA Inhaler -] Hydromorphone [Dilaudid -] 2 mg PO Q4HWA PRN #0 tablet MDD 6 11/29/16 Prednisone 10 mg PO DAILY #15 tablet 11/29/16 [id number] US/ABDOMEN US -LIMITED Right upper quadrant abdominal ultrasound: HISTORY: Abdominal pain. Ultrasound of the right upper quadrant of the abdomen is performed. Liver is fatty and enlarged and measures 20.6 cm in length without mass or biliary dilatation. The gallbladder is unremarkable. The CBD is not dilated and measures 3 mm in diameter. Right kidney measures 9.8 cm in length and is unremarkable. The visualized aorta and IVC are unremarkable. The pancreas is partially obscured but appears normal. IMPRESSION: Enlarged fatty liver. Preliminary report given by Dr. Rouse of Imaging employee relations manager on November at 1:05 EST. Reported By: Carmen Turner MD 12/12/16 0740 ASSESSMENT/PLAN: Patient is a 51 year old female with a PMHx of Afib, DM, HTN, HLD, 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 # Acute abdominal pain with diarrhea; has no darrhea today. Patient is on PO Flagyl now. most likely due to cdiff, still pending stool for cdiff. GI consult to start Flagyl empirically 500mg po tid. IVF continue Dilaudid for pain that patient is on will continue. will check mag level in am. # Acute hypokalemia IVF with 40meq kcl x 2 liters ordered # COPD with chronic hypoxic failure No current exacerbation ,continue trach collar and treatment, for consult -keep O2 sat >88% ,on Daliresp, Continue home medication Prednisone 10mg PO daily -Continue bronchodilators. #Anxiety disorder/ Depression continue Xanax will add extra Xanax 0.25mg as needed basis since patient is feeling more anxious at times and as per patient she is supposed to be on tid basis and doxepin #Anemia with low hemoglobin asymtomatic at this time , will repeat level in am, Fe studies ordered, type and screen for 2 units if the level drops further will transfuse. # Increased Pruritis, will increase the dose of Benadryl prn # Acute nausea and Vomiting Zofran 8mg Iv q6h prn # Hx of Hypothryoidism continue synthroid # T2DM Novolog sliding scale , levemir 5 u Sq BID # hx of PAF continue cardizem Po and lopressor Po # Hx of HTN continue po cardizem Po and lopressor Po DVT Px: SCD, heparin SQ Visit type - Emergency Visit Emergency Visit: Yes ED Registration Date: 12/11/16 Care time: The patient presented to the Emergency Department on the above date and was hospitalized for further evaluation of their emergent condition. - New Patient This patient is new to me today: No - Critical Care Critical Care patient: No
[2016-12-13] MEDS ORDERED: ALPRAZolam 0.25 MG TABLET PO PRN (11:22)
--- NOTE | 2016-12-13 13:28 | CONSULT ---
Consult Consult Specialty:: PULMONARY Referred by:: Dr. Casas Reason for Consultation:: COPD, chronic respiratory failure - History of Present Illness Chief Complaint: abdominal pain History of Present Illness: 51yo female with h/o HTN, DM, hyperlipidemia, paroxysmal atrial fibrillation, COPd, chronic hypoxic respiratory failure on home O2, uterine ca who [facility]. States she has been experiencing frequent diarrhea with lower abdominal pain. No nausea, vomiting but with subjective fevers and chills. Being treated empirically for C diff. She reports that discussions were taking place at the [facility] for possible decannulation. She has not been mechanically vented ever since her initial tracheostomy. Currently has a size 6 trach in. - History Source History Provided By: Patient, Medical Record Limitations to Obtaining History: No Limitations - Past Medical History Cardio/Vascular: Yes: AFIB (Paroxysmal), HTN, Hyperlipdemia Pulmonary: Yes: Asthma, COPD, O2 Dependent Renal/: Yes: Cancer (Uterine), Other ([place] in the past) Infectious Disease: Yes: C-Diff (june 2014), Other (Osteomyelitis of thoracic spine) Psych: Yes: Anxiety, Bipolar, Depression Musculoskeletal: Yes: Chronic low back pain Additional Medical History: Frequent c/o abdominal pain-extensive w/u in the past negative. Presumed adhesions from prior surgeries. - Past Surgical History Past Surgical History: Yes: Hysterectomy (with BSO) - Alcohol/Substance Use Hx Alcohol Use: No - Smoking History Smoking history: Unknown if ever smoked Have you smoked in the past 12 months: No Aproximately how many cigarettes per day: 3 If you are a former smoker, when did you quit?: 10/11/14 - Social History Usual Living Arrangement: With Significant Other 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) History of Recent Travel: No Home Medications - Allergies Allergies/Adverse Reactions: Allergies Allergy/AdvReac Type Severity Reaction Status Date / Time oxycodone [Oxycodone] Allergy Severe Nausea Verified 11/25/16 19:58 oxycodone HCl [From Percocet] Allergy Severe Nausea Verified 11/25/16 19:58 aspirin Allergy Mild Verified 11/25/16 19:58 blueberry [Blueberry] Allergy Mild Swelling Verified 11/25/16 19:58 promethazine HCl Allergy Mild Verified 11/25/16 19:58 [From Phenergan] promethazine Allergy Verified 11/25/16 19:58 - Home Medications Home Medications: Ambulatory Orders Acetaminophen [Tylenol .Regular Strength -] 650 mg PO Q6H PRN #0 tablet Levothyroxine [Synthroid -] 25 mcg PO DAILY@0700 tablet 06/05/16 Albuterol 2.5/Ipratropium 0.5 [Duoneb -] 1 amp NEB Q4HPO amp 09/17/16 Alprazolam [Xanax] 0.25 mg PO BID tablet MDD 2 09/17/16 Diltiazem [Cardizem -] 60 mg PO Q6HPO tablet 09/17/16 Magnesium Oxide [Mag-Ox -] 400 mg PO BID tablet 09/17/16 Albuterol Sulfate Inhaler - [Ventolin HFA Inhaler -] 2 puff IH Q4H PRN #0 inhaler 09/23/16 Baclofen [Lioresal -] 20 mg PO TID 10/01/16 Docusate Sodium [Colace -] 300 mg PO HS 10/01/16 Budesonide/Formeterol Fumarate [SYMBICORT 160/4.5mcg -] 2 inh PO BID 11/01/16 Diphenhydramine [Benadryl 12.5 MG/5 ML Oral Solution -] 25 mg PO Q4H PRN Doxepin HCl [Sinequan -] 25 mg PO HS 11/01/16 Eletriptan Hydrobromide [Relpax -] 40 mg PO PRN 11/01/16 Gabapentin [Neurontin -] 300 mg PO TID 11/01/16 Metoprolol Tartrate [Lopressor -] 25 mg PO TID 11/01/16 Omeprazole 40 mg PO BID 11/01/16 Polyethylene Glycol 3350 [Miralax 119 gm Btl -] 17 gm PO DAILY 11/01/16 Roflumilast [Daliresp] 500 mcg PO DAILY 11/01/16 Sennosides [Senna] 2 tab PO HS 11/01/16 Zolpidem Tartrate [Ambien] 10 mg PO HS PRN MDD 1 11/01/16 Lipase/Protease/Amylase [Eamon Turner 6,000 Units Capsule] 3 cap PO TIDCM capsule. 11/07/16 Insulin Sliding Scale [Novolog Vial Sliding Scale -] 0 units SQ ACHS PRN Doxepin HCl [Sinequan -] 25 mg PO HS capsule 11/20/16 Hydromorphone [Dilaudid -] 2 mg PO Q8H PRN #0 tablet MDD 3 11/20/16 Lactobacillus Acidophilus [Bacid -] 1 tab PO BID tab 11/20/16 Loperamide HCl [Imodium -] 2 mg PO Q8H PRN #0 capsule 11/20/16 Metoclopramide HCl [Reglan -] 10 mg PO TIDAC tablet 11/20/16 Multivitamins [Multivit ([facility] Formulary)] 1 tab PO DAILY tab 11/20/16 Ondansetron [Zofran -] 4 mg PO Q4H PRN #0 tablet 11/20/16 Zinc Oxide 1 applic TP BID tube 11/20/16 Insulin (Levemir) [Levemir Vial] 5 unit SQ DAILY #1 vial 11/21/16 Cholecalciferol (Vitamin D3) [Vitamin D3 -] 2,000 unit PO DAILY #30 tab Heparin - 5,000 unit SQ TID vial 11/28/16 Prednisone [Deltasone -] 20 mg PO DAILY tablet 11/28/16 Albuterol Sulfate Inhaler - [Ventolin HFA Inhaler -] 2 puff IH Q4H PRN #0 inhaler 11/29/16 Hydromorphone [Dilaudid -] 2 mg PO Q4HWA PRN #0 tablet MDD 6 11/29/16 Prednisone 10 mg PO DAILY #15 tablet 11/29/16 Family Disease History - Family Disease History Family Disease History: Diabetes: Mother (heart surgery), Heart Disease: Mother , CA: Father (leukemia) Review of Systems - Review of Systems Constitutional: reports: Chills, Fever, Malaise Eyes: denies: Recent Change in Vision HENT: denies: Nasal Congestion, Throat Pain Neck: denies: Stiffness, Tenderness Cardiovascular: reports: Shortness of Breath. denies: Chest Pain, Palpitations Respiratory: reports: Cough, SOB, Wheezing. denies: Hemoptysis Gastrointestinal: reports: Abdominal Pain, Diarrhea. denies: Nausea, Vomiting Genitourinary: denies: Dysuria, Hematuria Neurological: denies: Dizziness, Headache Physical Exam Vital Signs: Vital Signs Temperature 98.7 F 12/13/16 06:45 Pulse Rate 96 H 12/13/16 10:10 Respiratory Rate 20 12/13/16 06:45 Blood Pressure 104/60 12/13/16 06:45 O2 Sat by Pulse Oximetry (%) 97 12/13/16 10:10 Constitutional: Yes: Calm Eyes: Yes: Conjunctiva Clear, EOM Intact HENT: Yes: Atraumatic, Normocephalic Neck: Yes: Supple, Trachea Midline Cardiovascular: Yes: Regular Rate and Rhythm Respiratory: Yes: Diminished (distant breath sounds). No: Rhonchi, Wheezes Gastrointestinal: Yes: Normal Bowel Sounds, Soft, Abdomen, Obese, Tenderness ( diffusely). No: Tenderness, Rebound Edema: No Labs: CBC, BMP 12/13/16 06:30 12/13/16 06:30 Problem List - Problems (1) Abdominal pain Code(s): R10.9 - UNSPECIFIED ABDOMINAL PAIN Qualifiers: Abdominal location: generalized Qualified Code(s): R10.84 - Generalized abdominal pain (2) Infectious diarrhea Code(s): A09 - INFECTIOUS GASTROENTERITIS AND COLITIS, UNSPECIFIED (3) COPD (chronic obstructive pulmonary disease) Code(s): J44.9 - CHRONIC OBSTRUCTIVE PULMONARY DISEASE, UNSPECIFIED Qualified Code(s): - (4) Chronic respiratory failure with hypoxia Code(s): J96.11 - CHRONIC RESPIRATORY FAILURE WITH HYPOXIA (5) Paroxysmal atrial fibrillation Code(s): I48.0 - PAROXYSMAL ATRIAL FIBRILLATION (6) Diabetes mellitus Code(s): E11.9 - TYPE 2 DIABETES MELLITUS WITHOUT COMPLICATIONS Assessment/Plan Abdominal Pain/Diarrhea r/o C diff Colitis COPD Chronic Hypoxic Respiratory Failure s/p Tracheostomy Paroxysmal Atrial Fibrillation - empiric antibiotics - f/u cultures - O2 to keep SpO2 >90% - inhaled bronchodilators - not currently wheezing, would not increase steroids at this time - would defer decannulation until pt stable - can ask ENT to downsize trach electively in preparation for [facility] at [facility] - DVT prophylaxis Thank you for this consult Manolo Elena MD
--- NOTE | 2016-12-13 13:46 | PN ---
GI Progress Note Subjective: unwitnessed nausea and vomiting, no diarrhea, llq pain persists - Objective Vital Signs: Vital Signs Temperature 98.7 F 12/13/16 06:45 Pulse Rate 96 H 12/13/16 10:10 Respiratory Rate 20 12/13/16 06:45 Blood Pressure 104/60 12/13/16 06:45 O2 Sat by Pulse Oximetry (%) 97 12/13/16 10:10 Constitutional: Well Nourished Eyes: Yes: Conjunctiva Clear HENT: Yes: Atraumatic Neck: Yes: Supple Cardiovascular: Yes: Regular Rate and Rhythm Respiratory: Yes: CTA Bilaterally Gastrointestinal Inspection: Yes: Distention ...Palpate: Yes: Soft, Tenderness (--llq). No: Firm/Rigid, Guarding, Hepatomegaly, Splenomegaly ...Percussion: Yes: Tympanitic Labs: CBC, BMP 12/13/16 06:30 12/13/16 06:30 Problem List - Problems (1) Chronic abdominal pain Code(s): R10.9 - UNSPECIFIED ABDOMINAL PAIN G89.29 - OTHER CHRONIC PAIN (2) Infectious diarrhea Assessment/Plan: R> continue Flagyl 500mg tid Code(s): A09 - INFECTIOUS GASTROENTERITIS AND COLITIS, UNSPECIFIED
[2016-12-13] MEDS: ZOLPIDEM TARTRATE 5 MG TABLET PO PRN (22:30)
[2016-12-13] MEDS: DOCUSATE SODIUM 100 MG CAPSULE (FP) PO SCH (22:57)
[2016-12-13] MEDS: DOXEPIN HCL 25 MG CAPSULE PO SCH (22:58)
[2016-12-14] MEDS: dilTIAZem HCL 60 MG TABLET (FP) PO SCH ×5 (00:01→23:32)
[2016-12-14] MEDS: ALBUTEROL SO4 2.5/IPRATROPIUM 0.5 INH SOL 3 ML VIAL.NEB. NEB SCH ×6 (02:05→22:00)
[2016-12-14] MEDS: GABAPENTIN 300 MG CAPSULE (FP) PO SCH ×3 (06:33→21:47)
[2016-12-14] MEDS: LEVOTHYROXINE NA 25 MCG TABLET (FP) PO SCH (06:33)
[2016-12-14] MEDS: METOPROLOL TARTRATE 25 MG TABLET (FP) PO SCH ×3 (06:33→21:47)
[2016-12-14] MEDS: diphenhydrAMINE HCL 12.5 MG/5 ML UNIT-DOSE CUPS PO PRN ×2 (06:33→20:57)
[2016-12-14] MEDS: metroNIDAZOLE 250 MG TABLET PO SCH ×3 (06:33→21:47)
[2016-12-14] MEDS: BACLOFEN 10 MG TABLET (FP) PO SCH ×3 (06:33→21:47)
[2016-12-14] MEDS: ONDANSETRON 4 MG/2 ML VIAL IVPB PRN ×3 (06:34→20:57)
[2016-12-14] MEDS: INSULIN SLIDING SCALE (NOVOLOG) 1 VIAL SQ SCH ×4 (06:40→22:00)
[2016-12-14] MEDS: LIPASE/PROTEASE/AMYLASE 6,000 UNIT CAPSULE PO SCH ×3 (08:00→18:32)
[2016-12-14] MEDS ORDERED: PT OWN MED DRAWER 7, Y5N ONE (08:21)
[2016-12-14 08:55] LABS: BASOPHIL 0.7 % (0-2.0); EOSINOPHIL 5.1 % (0-4.5); MCH 26.9 pg (25.7-33.7); MCHC 31.9 g/dl (32.0-36.0); MEAN CELL VOLUME 84.3 fl (80-96); MEAN PLT VOLUME 8.5 fl (7.5-11.1); NEUTROPHILS 66.9 % (42.8-82.8); PLATELET COUNT 269 K/MM3 (134-434); RDW 18.3 % (11.6-15.6)
[2016-12-14] MEDS: LACTOBACILLUS ACIDOPHILUS 1 EACH TAB (FP) PO SCH ×2 (09:46→21:47)
[2016-12-14] MEDS: PANTOPRAZOLE 40 MG TABLET (FP) PO SCH ×2 (09:46→21:47)
[2016-12-14] MEDS: ALPRAZolam 0.25 MG TABLET PO SCH ×2 (09:46→21:47)
[2016-12-14] MEDS: predniSONE 10 MG TABLET (UD) PO SCH (09:46)
[2016-12-14] MEDS: CHOLECALCIFEROL (VITAMIN D3) 1,000 UNIT TABLET (FP) PO SCH (09:46)
[2016-12-14] MEDS: MULTIVITAMINS (DAILY MVI) TABLET (FP) PO SCH (09:46)
[2016-12-14 09:47] LABS: ALBUMIN 2.7 g/dl (3.4-5.0); ANION GAP 10 (8-16); CALCIUM 8.3 mg/dL (8.5-10.1); CO2 28 mmol/L (21-32); GLUCOSE,RANDOM 133 mg/dL (74-106); MAGNESIUM 1.8 mg/dL (1.8-2.4)
[2016-12-14] MEDS: ENOXAPARIN NA (PORCINE) 40 MG/0.4 ML DISP.SYRIN SQ SCH (09:47)
[2016-12-14] MEDS: POLYETHYLENE GLYCOL 3350 119 GM BTL PO SCH (09:48)
[2016-12-14] MEDS: ZINC OXIDE 20% TOPICAL OINTMENT 30 GM TUBE TP SCH ×2 (09:48→23:36)
[2016-12-14] MEDS: BUDESONIDE/FORMETEROL FUMARATE 160/4.5 mcg INHALER IH SCH ×2 (09:48→21:48)
[2016-12-14] MEDS: ROFLUMILAST 500 MCG TABLET PO SCH (09:48)
[2016-12-14 09:51] LABS: ALK PHOS 120 U/L (45-117); BILIRUBIN,TOTAL 0.2 mg/dL (0.2-1.0); CREATININE 0.7 mg/dL (0.55-1.02); PHOSPHOROUS 4.6 mg/dL (2.5-4.9); SGOT/AST 12 U/L (15-37); SGPT/ALT 49 U/L (12-78); TOT PROT 6.1 g/dl (6.4-8.2)
--- NOTE | 2016-12-14 12:44 | PN ---
Progress Note (short form) - Note Progress Note: PULMONARY Breathing about the same. +cough and wheezing. Still with diarrhea. Last Vital Signs Temp Pulse Resp BP Pulse Ox 98 F 91 H 18 90/59 98 12/14/16 06:34 12/14/16 10:20 12/14/16 06:34 12/14/16 06:34 12/14/16 10:20 Gen: NAD at rest Heart: RRR Lung: bilateral wheezes, rhonchi Abd: soft, mild TTP, no rebound, obese Ext: no edema CBC, BMP 12/14/16 06:45 12/14/16 06:45 Active Medications Acetaminophen (Tylenol -) 650 mg PO Q6H PRN PRN Reason: PAIN Albuterol/Ipratropium (Duoneb -) 1 amp NEB Q4HPO [facility] Last Admin: 12/14/16 10:20 Dose: 1 amp Alprazolam (Xanax -) 0.25 mg PO DAILY PRN PRN Reason: ANXIETY Alprazolam (Xanax -) 0.25 mg PO BID [facility] Last Admin: 12/14/16 09:46 Dose: 0.25 mg Baclofen (Lioresal -) 20 mg PO TID [facility] Last Admin: 12/14/16 06:33 Dose: 20 mg Budesonide/Formoterol Fumarate (Symbicort 160/4.5mcg -) 2 puff IH BID [facility] Last Admin: 12/14/16 09:48 Dose: 2 puff Cholecalciferol (Vitamin D3 -) 2,000 unit PO DAILY [facility] Last Admin: 12/14/16 09:46 Dose: 2,000 unit Diltiazem HCl (Cardizem -) 60 mg PO Q6HPO [facility] Last Admin: 12/14/16 11:49 Dose: Not Given Diphenhydramine HCl (Benadryl Oral Solution -) 50 mg PO Q6H PRN PRN Reason: FOR ITCHING Last Admin: 12/14/16 06:33 Dose: 50 mg Docusate Sodium (Colace -) 300 mg PO [facility] Last Admin: 12/13/16 22:57 Dose: 300 mg Doxepin HCl (Sinequan -) 25 mg PO [facility] Last Admin: 12/13/16 22:58 Dose: 25 mg Eletriptan (Relpax -) 40 mg PO DAILY PRN PRN Reason: HEADACHE Enoxaparin Sodium (Lovenox -) 40 mg SQ DAILY [facility] Last Admin: 12/14/16 09:47 Dose: 40 mg Gabapentin (Neurontin -) 300 mg PO TID [facility] Last Admin: 12/14/16 06:33 Dose: 300 mg Hydromorphone HCl (Dilaudid -) 4 mg PO Q4HWA PRN PRN Reason: PAIN Last Admin: 12/14/16 09:43 Dose: 4 mg Insulin Aspart (Novolog Vial Sliding Scale -) 1 vial SQ ACHS [facility] PRN Reason: Protocol Last Admin: 12/14/16 11:42 Dose: 2 units Lactobacillus Acidophilus (Bacid -) 1 tab PO BID [facility] Last Admin: 12/14/16 09:46 Dose: 1 tab Levothyroxine Sodium (Synthroid -) 25 mcg PO DAILY@0700 [facility] Last Admin: 12/14/16 06:33 Dose: 25 mcg Metoprolol Tartrate (Lopressor -) 25 mg PO TID [facility] Last Admin: 12/14/16 06:33 Dose: 25 mg Metronidazole (Flagyl -) 500 mg PO TID [facility] Last Admin: 12/14/16 06:33 Dose: 500 mg Multi-Ingredient Ointment (Zinc Oxide) 1 applic TP BID [facility] Last Admin: 12/14/16 09:48 Dose: 1 applic Multivitamins/Minerals/Vitamin C (Tab-A-Vit -) 1 tab PO DAILY [facility] Last Admin: 12/14/16 09:46 Dose: 1 tab Ondansetron HCl (Zofran Injection) 8 mg IVPB Q6H PRN PRN Reason: NAUSEA AND/OR VOMITING Last Admin: 12/14/16 12:41 Dose: 8 mg Pancrelipase (Creon Dr 6,000 Units Capsule) 3 cap PO TIDCM [facility] Last Admin: 12/14/16 12:02 Dose: 3 cap Pantoprazole Sodium (Protonix -) 40 mg PO BID [facility] Last Admin: 12/14/16 09:46 Dose: 40 mg Polyethylene Glycol (Miralax (For Daily Use) -) 17 gm PO DAILY [facility] Last Admin: 12/14/16 09:48 Dose: Not Given Prednisone (Deltasone -) 10 mg PO DAILY [facility] Last Admin: 12/14/16 09:46 Dose: 10 mg Roflumilast (Daliresp -) 500 mcg PO DAILY [facility] Last Admin: 12/14/16 09:48 Dose: 500 mcg Zolpidem Tartrate (Ambien -) 10 mg PO HS PRN PRN Reason: INSOMNIA Last Admin: 12/13/16 22:30 Dose: 10 mg A/P Abdominal Pain/Diarrhea r/o C diff Colitis COPD Chronic Hypoxic Respiratory Failure s/p Tracheostomy Paroxysmal Atrial Fibrillation - on empiric antibiotics - f/u cultures - O2 to keep SpO2 >90% - inhaled bronchodilators - would defer decannulation until pt stable - can ask ENT to downsize trach electively in preparation for decannulation at intermediate - DVT prophylaxis Problem List - Problems (1) Abdominal pain Code(s): R10.9 - UNSPECIFIED ABDOMINAL PAIN Qualifiers: Abdominal location: generalized Qualified Code(s): R10.84 - Generalized abdominal pain (2) Infectious diarrhea Code(s): A09 - INFECTIOUS GASTROENTERITIS AND COLITIS, UNSPECIFIED (3) COPD (chronic obstructive pulmonary disease) Code(s): J44.9 - CHRONIC OBSTRUCTIVE PULMONARY DISEASE, UNSPECIFIED (4) Chronic respiratory failure with hypoxia Code(s): J96.11 - CHRONIC RESPIRATORY FAILURE WITH HYPOXIA (5) Paroxysmal atrial fibrillation Code(s): I48.0 - PAROXYSMAL ATRIAL FIBRILLATION (6) Diabetes mellitus Code(s): E11.9 - TYPE 2 DIABETES MELLITUS WITHOUT COMPLICATIONS
--- NOTE | 2016-12-14 19:14 | PN ---
Physical Exam: SUBJECTIVE: Patient seen and examined No blood or diarrhea today, doesn't like to go to rehab.likes the hospital. OBJECTIVE: Vital Signs Period Temp Pulse Resp BP Sys/Dan Pulse Ox Last 24 Hr 98 F-99 F 91-96 16-20 90-118/59-70 98-98 GENERAL: The patient is awake, alert, and fully oriented, in no acute distress. HEAD: Normal with no signs of trauma. EYES: PERRL, extraocular movements intact, sclera anicteric, conjunctiva clear. No ptosis. ENT: Ears normal, nares patent, oropharynx clear without exudates, moist mucous membranes. NECK: Trachea midline, full range of motion, supple. LUNGS: Breath sounds equal, clear to auscultation bilaterally, no wheezes, no crackles, no accessory muscle use. HEART: Regular rate and rhythm, S1, S2 without murmur, rub or gallop. ABDOMEN: Soft, nontender, large abdomen, ND,NT, normoactive bowel sounds, no guarding, no rebound, no hepatosplenomegaly, no masses. EXTREMITIES: 2+ pulses, warm, well-perfused, no edema. NEUROLOGICAL: Cranial nerves II through XII grossly intact. Normal speech, gait not observed. PSYCH: Normal mood, normal affect. SKIN: Warm, dry, normal turgor, no rashes or lesions noted Laboratory Results - last 24 hr 12/13/16 12/14/16 12/14/16 22:47 06:39 06:45 WBC 7.0 RBC 3.06 L Hgb 8.2 L Hct 25.8 L MCV 84.3 MCHC 31.9 L RDW 18.3 H Plt Count 269 MPV 8.5 Neutrophils % 66.9 Lymphocytes % 19.6 D Monocytes % 7.7 Eosinophils % 5.1 H Basophils % 0.7 Sodium Potassium Chloride Carbon Dioxide Anion Gap BUN Creatinine Creat Clearance w eGFR POC Glucometer 156 148 Random Glucose Calcium Phosphorus Magnesium Ferritin Total Bilirubin AST ALT Alkaline Phosphatase Total Protein Albumin Blood Type Antibody Screen 12/14/16 12/14/16 12/14/16 06:45 06:45 06:45 WBC RBC Hgb Hct MCV MCHC RDW Plt Count MPV Neutrophils % Lymphocytes % Monocytes % Eosinophils % Basophils % Sodium 141 Potassium 3.9 Chloride 103 Carbon Dioxide 28 Anion Gap 10 BUN 5 L D Creatinine 0.7 Creat Clearance w eGFR > 60 POC Glucometer Random Glucose 133 H D Calcium 8.3 L Phosphorus 4.6 D Magnesium 1.8 D Ferritin 30.268 Total Bilirubin 0.2 AST 12 L ALT 49 Alkaline Phosphatase 120 H Total Protein 6.1 L Albumin 2.7 L Blood Type A POSITIVE Antibody Screen Negative 12/14/16 12/14/16 11:27 17:31 WBC RBC Hgb Hct MCV MCHC RDW Plt Count MPV Neutrophils % Lymphocytes % Monocytes % Eosinophils % Basophils % Sodium Potassium Chloride Carbon Dioxide Anion Gap BUN Creatinine Creat Clearance w eGFR POC Glucometer 196 312 Random Glucose Calcium Phosphorus Magnesium Ferritin Total Bilirubin AST ALT Alkaline Phosphatase Total Protein Albumin Blood Type Antibody Screen Active Medications Generic Name Dose Route Start Last Admin Trade Name Freq PRN Reason Stop Dose Admin Acetaminophen 650 mg 12/11/16 19:55 Tylenol - PO Q6H PRN PAIN Albuterol/Ipratropium 1 amp 12/11/16 22:00 12/14/16 18:03 Duoneb - NEB 1 amp Q4HPO EMMY Administration Alprazolam 0.25 mg 12/13/16 11:22 Xanax - PO DAILY PRN ANXIETY Alprazolam 0.25 mg 12/13/16 22:00 12/14/16 09:46 Xanax - PO 0.25 mg BID EMMY Administration Baclofen 20 mg 12/11/16 22:00 12/14/16 13:59 Lioresal - PO 20 mg TID EMMY Administration Budesonide/Formoterol Fumarate 2 puff 12/11/16 22:00 12/14/16 09:48 Symbicort 160/4.5mcg - IH 2 puff BID EMMY Administration Cholecalciferol 2,000 unit 12/12/16 10:00 12/14/16 09:46 Vitamin D3 - PO 2,000 unit DAILY EMMY Administration Diltiazem HCl 60 mg 12/12/16 00:00 12/14/16 18:32 Cardizem - PO Not Given Q6HPO EMMY Diphenhydramine HCl 50 mg 12/13/16 11:20 12/14/16 06:33 Benadryl Oral Solution - PO 50 mg Q6H PRN Administration FOR ITCHING Docusate Sodium 300 mg 12/11/16 22:00 12/13/16 22:57 Colace - PO 300 mg HS EMMY Administration Doxepin HCl 25 mg 12/11/16 22:00 12/13/16 22:58 Sinequan - PO 25 mg HS EMMY Administration Eletriptan 40 mg 12/11/16 19:55 Relpax - PO DAILY PRN HEADACHE Enoxaparin Sodium 40 mg 12/14/16 10:00 12/14/16 09:47 Lovenox - SQ 40 mg DAILY EMMY Administration Gabapentin 300 mg 12/11/16 22:00 12/14/16 14:00 Neurontin - PO 300 mg TID EMMY Administration Hydromorphone HCl 4 mg 12/12/16 18:04 12/14/16 16:05 Dilaudid - PO 4 mg Q4HWA PRN Administration PAIN Insulin Aspart 1 vial 12/11/16 22:00 12/14/16 18:31 Novolog Vial Sliding Scale - SQ 8 units ACHS EMMY Administration Protocol Lactobacillus Acidophilus 1 tab 12/11/16 22:00 12/14/16 09:46 Bacid - PO 1 tab BID EMMY Administration Levothyroxine Sodium 25 mcg 12/12/16 07:00 12/14/16 06:33 Synthroid - PO 25 mcg DAILY@0700 EMMY Administration Metoprolol Tartrate 25 mg 12/11/16 22:00 12/14/16 14:00 Lopressor - PO 25 mg TID EMMY Administration Metronidazole 500 mg 12/12/16 22:00 12/14/16 14:00 Flagyl - PO 500 mg TID EMMY Administration Multi-Ingredient Ointment 1 applic 12/11/16 22:00 12/14/16 09:48 Zinc Oxide TP 1 applic BID EMMY Administration Multivitamins/Minerals/Vitamin C 1 tab 12/12/16 10:00 12/14/16 09:46 Tab-A-Vit - PO 1 tab DAILY EMMY Administration Ondansetron HCl 8 mg 12/13/16 11:30 12/14/16 12:41 Zofran Injection IVPB 8 mg Q6H PRN Administration NAUSEA AND/OR VOMITING Pancrelipase 3 cap 12/12/16 08:00 12/14/16 18:[address] 6,000 Units Capsule PO 3 cap TIDCM EMMY Administration Pantoprazole Sodium 40 mg 12/11/16 22:00 12/14/16 09:46 Protonix - PO 40 mg BID EMMY Administration Polyethylene Glycol 17 gm 12/12/16 10:00 12/14/16 09:48 Miralax (For Daily Use) - PO Not Given DAILY EMMY Prednisone 10 mg 12/12/16 10:00 12/14/16 09:46 Deltasone - PO 10 mg DAILY EMMY Administration Roflumilast 500 mcg 12/12/16 10:00 12/14/16 09:48 Daliresp - PO 500 mcg DAILY EMMY Administration Zolpidem Tartrate 10 mg 12/11/16 19:55 12/13/16 22:30 Ambien - PO 10 mg HS PRN Administration INSOMNIA ASSESSMENT/PLAN: Patient is a 51 year old female with a PMHx of Afib, DM, HTN, HLD, 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 # Abdominal pain continues with soft loose stool ,empiric Flagyl therapy cdiff negative for toxin, GI consult started Flagyl empirically 500mg po tid. IVF continue ,Dilaudid for pain that patient is on will continue. # Acute hypokalemia repleted. # COPD with chronic hypoxic failure No current exacerbation ,continue trach collar and treatment, for consult -keep O2 sat >88% ,on Daliresp, Continue home medication Prednisone 10mg PO daily ,Continue bronchodilators. #Anxiety disorder/ Depression continue Xanax will add extra Xanax 0.25mg as needed doxepin #Anemia with hemoglobin of 8.0 if drops below 7.0 transfuse. # Increased Pruritis, will increase the dose of Benadryl prn # Acute nausea and Vomiting Zofran 8mg Iv q6h prn # Hx of Hypothryoidism continue synthroid # T2DM Novolog sliding scale , levemir 5 u Sq BID # hx of PAF continue cardizem Po and lopressor Po # Hx of HTN continue po cardizem Po and lopressor Po DVT Px: SCD, heparin SQ Visit type - Emergency Visit Emergency Visit: Yes ED Registration Date: 12/11/16 Care time: The patient presented to the Emergency Department on the above date and was hospitalized for further evaluation of their emergent condition. - New Patient This patient is new to me today: No - Critical Care Critical Care patient: No - Discharge Referral Referred to [facility] Med P.C.: No
[2016-12-14] MEDS: DOXEPIN HCL 25 MG CAPSULE PO SCH (21:47)
[2016-12-14] MEDS: DOCUSATE SODIUM 100 MG CAPSULE (FP) PO SCH (21:47)
[2016-12-14] MEDS: ZOLPIDEM TARTRATE 5 MG TABLET PO PRN (22:33)
--- NOTE | 2016-12-14 23:36 | EKG ---
Test Reason : Blood Pressure : / mmHG Vent. Rate : 100 BPM Atrial Rate : 100 BPM P-R Int : 166 ms QRS Dur : 084 ms QT Int : 344 ms P-R-T Axes : 042 018 038 degrees QTc Int : 443 ms NORMAL SINUS RHYTHM NORMAL ECG WHEN COMPARED WITH ECG OF 28-NOV-2016 10:29, NO SIGNIFICANT CHANGE WAS FOUND Confirmed by SERA RENTERIA MD ([id number]) on 12/14/2016 11:35:45 PM Referred By: Ace MONK Confirmed By:SERA RENTERIA MD
[2016-12-15] MEDS: ALBUTEROL SO4 2.5/IPRATROPIUM 0.5 INH SOL 3 ML VIAL.NEB. NEB SCH ×6 (01:10→23:00)
[2016-12-15] MEDS: BACLOFEN 10 MG TABLET (FP) PO SCH ×3 (06:08→21:28)
[2016-12-15] MEDS: dilTIAZem HCL 60 MG TABLET (FP) PO SCH ×3 (06:08→17:44)
[2016-12-15] MEDS: metroNIDAZOLE 250 MG TABLET PO SCH ×3 (06:08→21:29)
[2016-12-15] MEDS: INSULIN SLIDING SCALE (NOVOLOG) 1 VIAL SQ SCH ×4 (06:08→21:30)
[2016-12-15] MEDS: LEVOTHYROXINE NA 25 MCG TABLET (FP) PO SCH (06:08)
[2016-12-15] MEDS: METOPROLOL TARTRATE 25 MG TABLET (FP) PO SCH ×3 (06:08→21:30)
[2016-12-15] MEDS: GABAPENTIN 300 MG CAPSULE (FP) PO SCH ×3 (06:08→21:29)
[2016-12-15 08:06] LABS: SERUM IRON 30 ug/dL (27-159); TOTAL IRON BINDING CAPACITY 260 ug/dL (250-450); UIBC 230 ug/dL (131-425)
[2016-12-15] MEDS ORDERED: PT OWN MED DRAWER 7, Y5N ONE ×3 (08:27→21:41)
[2016-12-15] MEDS: predniSONE 10 MG TABLET (UD) PO SCH (09:59)
[2016-12-15] MEDS: CHOLECALCIFEROL (VITAMIN D3) 1,000 UNIT TABLET (FP) PO SCH (09:59)
[2016-12-15] MEDS: LACTOBACILLUS ACIDOPHILUS 1 EACH TAB (FP) PO SCH ×2 (09:59→21:29)
[2016-12-15] MEDS: MULTIVITAMINS (DAILY MVI) TABLET (FP) PO SCH (09:59)
[2016-12-15] MEDS: LIPASE/PROTEASE/AMYLASE 6,000 UNIT CAPSULE PO SCH ×3 (10:00→18:57)
[2016-12-15] MEDS: POLYETHYLENE GLYCOL 3350 119 GM BTL PO SCH (10:00)
[2016-12-15] MEDS: ALPRAZolam 0.25 MG TABLET PO SCH ×2 (10:07→21:31)
[2016-12-15] MEDS: PANTOPRAZOLE 40 MG TABLET (FP) PO SCH ×2 (10:07→21:28)
[2016-12-15] MEDS: ENOXAPARIN NA (PORCINE) 40 MG/0.4 ML DISP.SYRIN SQ SCH (10:13)
[2016-12-15] MEDS: ONDANSETRON 4 MG/2 ML VIAL IVPB PRN (10:22)
[2016-12-15] MEDS: ONDANSETRON *ODT* 4 MG TABLET SL PRN (12:47)
[2016-12-15] MEDS: ROFLUMILAST 500 MCG TABLET PO SCH (12:53)
[2016-12-15] MEDS: ZINC OXIDE 20% TOPICAL OINTMENT 30 GM TUBE TP SCH ×2 (12:56→21:38)
[2016-12-15] MEDS: BUDESONIDE/FORMETEROL FUMARATE 160/4.5 mcg INHALER IH SCH ×2 (12:56→21:38)
[2016-12-15] MEDS: diphenhydrAMINE HCL 12.5 MG/5 ML UNIT-DOSE CUPS PO PRN ×2 (13:23→13:38)
--- NOTE | 2016-12-15 13:54 | PN ---
Progress Note (short form) - Note Progress Note: No acute events Pain controlled with medication + Diarrhea/soft loose stool Afebrile VSS Abd soft WBC 7 yesterday C diff negative Continue current management Abx per ID No surgical intervention Please reconsult PRN Problem List - Problems (1) Chronic abdominal pain Code(s): R10.9 - UNSPECIFIED ABDOMINAL PAIN G89.29 - OTHER CHRONIC PAIN (2) Chronic respiratory failure with hypoxia Code(s): J96.11 - CHRONIC RESPIRATORY FAILURE WITH HYPOXIA
--- NOTE | 2016-12-15 14:15 | PN ---
Progress Note, Physician History of Present Illness: pulmonary drowsy,congested. - Current Medication List Current Medications: Active Medications Acetaminophen (Tylenol -) 650 mg PO Q6H PRN PRN Reason: PAIN Albuterol/Ipratropium (Duoneb -) 1 amp NEB Q4HPO [facility] Last Admin: 12/15/16 10:35 Dose: 1 amp Alprazolam (Xanax -) 0.25 mg PO DAILY PRN PRN Reason: ANXIETY Alprazolam (Xanax -) 0.25 mg PO BID [facility] Last Admin: 12/15/16 10:07 Dose: 0.25 mg Baclofen (Lioresal -) 20 mg PO TID [facility] Last Admin: 12/15/16 13:23 Dose: 20 mg Budesonide/Formoterol Fumarate (Symbicort 160/4.5mcg -) 2 puff IH BID [facility] Last Admin: 12/15/16 12:56 Dose: 2 puff Cholecalciferol (Vitamin D3 -) 2,000 unit PO DAILY [facility] Last Admin: 12/15/16 09:59 Dose: 2,000 unit Diltiazem HCl (Cardizem -) 60 mg PO Q6HPO [facility] Last Admin: 12/15/16 13:21 Dose: 60 mg Diphenhydramine HCl (Benadryl Oral Solution -) 50 mg PO Q6H PRN PRN Reason: FOR ITCHING Last Admin: 12/15/16 13:38 Dose: 50 mg Docusate Sodium (Colace -) [address] [facility] Last Admin: 12/14/16 21:47 Dose: Not Given Doxepin HCl (Sinequan -) [address] [facility] Last Admin: 12/14/16 21:47 Dose: 25 mg Eletriptan (Relpax -) 40 mg PO DAILY PRN PRN Reason: HEADACHE Enoxaparin Sodium (Lovenox -) 40 mg SQ DAILY [facility] Last Admin: 12/15/16 10:13 Dose: 40 mg Gabapentin (Neurontin -) 300 mg PO TID [facility] Last Admin: 12/15/16 13:23 Dose: 300 mg Hydromorphone HCl (Dilaudid -) 4 mg PO Q4HWA PRN PRN Reason: PAIN Last Admin: 12/15/16 13:39 Dose: 4 mg Insulin Aspart (Novolog Vial Sliding Scale -) 1 vial SQ ACHS [facility] PRN Reason: Protocol Last Admin: 12/15/16 12:27 Dose: Not Given Lactobacillus Acidophilus (Bacid -) 1 tab PO BID [facility] Last Admin: 12/15/16 09:59 Dose: 1 tab Levothyroxine Sodium (Synthroid -) 25 mcg PO DAILY@0700 [facility] Last Admin: 12/15/16 06:08 Dose: 25 mcg Metoprolol Tartrate (Lopressor -) 25 mg PO TID [facility] Last Admin: 12/15/16 13:14 Dose: Not Given Metronidazole (Flagyl -) 500 mg PO TID [facility] Last Admin: 12/15/16 13:23 Dose: 500 mg Multi-Ingredient Ointment (Zinc Oxide) 1 applic TP BID [facility] Last Admin: 12/15/16 12:56 Dose: 1 applic Multivitamins/Minerals/Vitamin C (Tab-A-Vit -) 1 tab PO DAILY [facility] Last Admin: 12/15/16 09:59 Dose: 1 tab Ondansetron HCl (Zofran Odt -) 4 mg SL Q6H PRN PRN Reason: NAUSEA AND/OR VOMITING Last Admin: 12/15/16 12:47 Dose: 4 mg Pancrelipase (Creon Dr 6,000 Units Capsule) 3 cap PO TIDCM [facility] Last Admin: 12/15/16 12:57 Dose: Not Given Pantoprazole Sodium (Protonix -) 40 mg PO BID [facility] Last Admin: 12/15/16 10:07 Dose: 40 mg Polyethylene Glycol (Miralax (For Daily Use) -) 17 gm PO DAILY [facility] Last Admin: 12/15/16 10:00 Dose: Not Given Prednisone (Deltasone -) 10 mg PO DAILY [facility] Last Admin: 12/15/16 09:59 Dose: 10 mg Roflumilast (Daliresp -) 500 mcg PO DAILY [facility] Last Admin: 12/15/16 12:53 Dose: 500 mcg Zolpidem Tartrate (Ambien -) 10 mg PO HS PRN PRN Reason: INSOMNIA Last Admin: 12/14/16 22:33 Dose: 10 mg - Objective Vital Signs: Vital Signs Temperature 98.1 F 12/15/16 03:00 Pulse Rate 100 H 12/15/16 13:00 Respiratory Rate 22 12/15/16 13:00 Blood Pressure 102/60 12/15/16 13:00 O2 Sat by Pulse Oximetry (%) 98 12/14/16 22:00 Constitutional: Yes: Well Nourished, Other (drowsy) Eyes: Yes: WNL HENT: Yes: WNL Neck: Yes: Supple Cardiovascular: Yes: Regular Rate and Rhythm, S1, S2 Respiratory: Yes: Rhonchi (heriberto rhonchi) Gastrointestinal: Yes: Normal Bowel Sounds, Soft Extremities: Yes: WNL Edema: No Labs: Assessment/Plan A/P Abdominal Pain/Diarrhea r/o C diff Colitis COPD Chronic Hypoxic Respiratory Failure s/p Tracheostomy Paroxysmal Atrial Fibrillation - O2 to keep SpO2 >90% - pain meds - inhaled bronchodilators - would defer decannulation until pt stable - ENT to downsize trach electively in preparation for decannulation at intermediate - DVT prophylaxis Problem List - Problems (1) Abdominal pain Code(s): R10.9 - UNSPECIFIED ABDOMINAL PAIN Qualifiers: Abdominal location: generalized Qualified Code(s): R10.84 - Generalized abdominal pain (2) Infectious diarrhea Code(s): A09 - INFECTIOUS GASTROENTERITIS AND COLITIS, UNSPECIFIED (3) COPD (chronic obstructive pulmonary disease) Code(s): J44.9 - CHRONIC OBSTRUCTIVE PULMONARY DISEASE, UNSPECIFIED (4) Chronic respiratory failure with hypoxia Code(s): J96.11 - CHRONIC RESPIRATORY FAILURE WITH HYPOXIA (5) Paroxysmal atrial fibrillation Code(s): I48.0 - PAROXYSMAL ATRIAL FIBRILLATION (6) Diabetes mellitus Code(s): E11.9 - TYPE 2 DIABETES MELLITUS WITHOUT COMPLICATIONS
--- NOTE | 2016-12-15 15:45 | PN ---
Physical Exam: SUBJECTIVE: Patient seen and examined says she is tired. denies SOB, chest pain. discussed with nursing, pt c/o of diarrhea. pt had two small non-bloody soft bowel movements. OBJECTIVE: Vital Signs Period Temp Pulse Resp BP Sys/Dan Pulse Ox Last 24 Hr 98.1 F-99.0 F 93-104 18-22 102-133/60-76 98-98 GENERAL: The patient is tired appearing, laying in bed, easily arousable but goes back to sleep after answering question. HEAD: Normal with no signs of trauma. EYES: extraocular movements intact, sclera anicteric, conjunctiva clear. No ptosis. ENT: nares patent, moist mucous membranes. NECK: Trachea collar in place without surrounding erythema/discharge. LUNGS: Breath sounds coarse. quiet at bases. HEART: Regular rate and rhythm, S1, S2 ABDOMEN: Soft, nontender, nondistended, normoactive bowel sounds, no guarding, no rebound, no masses. EXTREMITIES: + pulses, warm, well-perfused, right leg in cast cdi. NEUROLOGICAL: Normal speech, gait not observed. SKIN: Warm, dry, normal turgor, no rashes or lesions noted Laboratory Results - last 24 hr 12/14/16 12/14/16 12/14/16 06:45 17:31 21:55 POC Glucometer 312 193 Iron 30 TIBC 260 Iron Saturation 12 L 12/15/16 12/15/16 06:04 11:53 POC Glucometer 224 149 Iron TIBC Iron Saturation Active Medications Generic Name Dose Route Start Last Admin Trade Name Freq PRN Reason Stop Dose Admin Acetaminophen 650 mg 12/11/16 19:55 Tylenol - PO Q6H PRN PAIN Albuterol/Ipratropium 1 amp 12/11/16 22:00 12/15/16 14:05 Duoneb - NEB 1 amp Q4HPO EMMY Administration Alprazolam 0.25 mg 12/13/16 11:22 Xanax - PO DAILY PRN ANXIETY Alprazolam 0.25 mg 12/13/16 22:00 12/15/16 10:07 Xanax - PO 0.25 mg BID EMMY Administration Baclofen 20 mg 12/11/16 22:00 12/15/16 13:23 Lioresal - PO 20 mg TID EMMY Administration Budesonide/Formoterol Fumarate 2 puff 12/11/16 22:00 12/15/16 12:56 Symbicort 160/4.5mcg - IH 2 puff BID [facility] Administration Cholecalciferol 2,000 unit 12/12/16 10:00 12/15/16 09:59 Vitamin D3 - PO 2,000 unit DAILY EMMY Administration Diltiazem HCl 60 mg 12/12/16 00:00 12/15/16 13:21 Cardizem - PO 60 mg Q6HPO EMMY Administration Diphenhydramine HCl 50 mg 12/13/16 11:20 12/15/16 13:38 Benadryl Oral Solution - PO 50 mg Q6H PRN Administration FOR ITCHING Docusate Sodium 300 mg 12/11/16 22:00 12/14/16 21:47 Colace - PO Not Given HS [facility] Doxepin HCl 25 mg 12/11/16 22:00 12/14/16 21:47 Sinequan - PO 25 mg HS [facility] Administration Eletriptan 40 mg 12/11/16 19:55 Relpax - PO DAILY PRN HEADACHE Enoxaparin Sodium 40 mg 12/14/16 10:00 12/15/16 10:13 Lovenox - SQ 40 mg DAILY [facility] Administration Gabapentin 300 mg 12/11/16 22:00 12/15/16 13:23 Neurontin - PO 300 mg TID [facility] Administration Hydromorphone HCl 4 mg 12/12/16 18:04 12/15/16 13:39 Dilaudid - PO 4 mg Q4HWA PRN Administration PAIN Insulin Aspart 1 vial 12/11/16 22:00 12/15/16 12:27 Novolog Vial Sliding Scale - SQ Not Given ACHS [facility] Protocol Lactobacillus Acidophilus 1 tab 12/11/16 22:00 12/15/16 09:59 Bacid - PO 1 tab BID [facility] Administration Levothyroxine Sodium 25 mcg 12/12/16 07:00 12/15/16 06:08 Synthroid - PO 25 mcg DAILY@0700 [facility] Administration Metoprolol Tartrate 25 mg 12/11/16 22:00 12/15/16 13:14 Lopressor - PO Not Given TID [facility] Metronidazole 500 mg 12/12/16 22:00 12/15/16 13:23 Flagyl - PO 500 mg TID [facility] Administration Multi-Ingredient Ointment 1 applic 12/11/16 22:00 12/15/16 12:56 Zinc Oxide TP 1 applic BID [facility] Administration Multivitamins/Minerals/Vitamin C 1 tab 12/12/16 10:00 12/15/16 09:59 Tab-A-Vit - PO 1 tab DAILY [facility] Administration Ondansetron HCl 4 mg 12/15/16 11:33 12/15/16 12:47 Zofran Odt - SL 4 mg Q6H PRN Administration NAUSEA AND/OR VOMITING Pancrelipase 3 cap 12/12/16 08:00 12/15/16 12:57 Eamon Turner 6,000 Units Capsule PO Not Given TIDCM EMMY Pantoprazole Sodium 40 mg 12/11/16 22:00 12/15/16 10:07 Protonix - PO 40 mg BID [facility] Administration Polyethylene Glycol 17 gm 12/12/16 10:00 12/15/16 10:00 Miralax (For Daily Use) - PO Not Given DAILY [facility] Prednisone 10 mg 12/12/16 10:00 12/15/16 09:59 Deltasone - PO 10 mg DAILY [facility] Administration Roflumilast 500 mcg 12/12/16 10:00 12/15/16 12:53 Daliresp - PO 500 mcg DAILY [facility] Administration Zolpidem Tartrate 10 mg 12/14/16 22:10 12/14/16 22:33 Ambien - PO 10 mg HS PRN Administration INSOMNIA ASSESSMENT/PLAN: 51 yr old woman with PMHx of Afib, DM, HTN, HLD, COPD-oxygen dependent s/p tracheostomy, uterine CA with mets to spine, colitis, bipolar depression admitted for diarrhea. - no surgical intervention at this time, Dr. Ly consult appreciated - Dr. Esparza Gi consulted. #Abdominal pain, diarrhea, suspicious for C.diff colitis. - C.diff ag pos, toxin negative - avoid anti-diarrheal medications - flagyl 500mg TID -- start 12/12 - creon 3 cap po TID - zofran 4mg sl, protonix 40mg po bid, #COPD/chronic hypoxic resp failure, s/p tracheostomy on 40% oxygen - currently stable - maintian o2, >90% - deltasone 10mg po daily - daliresp 500 mcq daily - Dr. Srivastava consulted #DM - NSS - levemir 5units subq BID - ACHS POC #Anxiety - xanax, sinequan #Hypothyroid - synthroid qdaily #Paraxysmal Afib, currently NSR, rate controlled - cardizem - lopressor -DVT: SCD, heparin SQ Disposition -Full code -patient from custodial Visit type - Emergency Visit Emergency Visit: No - New Patient This patient is new to me today: Yes Date on this admission: 12/15/16 - Critical Care Critical Care patient: No - Discharge Referral Referred to [facility] Med P.C.: No
--- NOTE | 2016-12-15 17:06 | PN ---
Teaching Attending Note Name of Resident: Melanie Pineda ATTENDING PHYSICIAN STATEMENT I saw and evaluated the patient. I reviewed the resident's note and discussed the case with the resident. I agree with the resident's findings and plan as documented. SUBJECTIVE: No, new complains, comfortable, with no acute distress. OBJECTIVE: Vital Signs Temperature 99.0 F 12/15/16 14:26 Pulse Rate 100 H 12/15/16 13:00 Respiratory Rate 22 12/15/16 13:00 Blood Pressure 102/60 12/15/16 13:00 O2 Sat by Pulse Oximetry (%) 98 12/15/16 10:56 GENERAL: The patient is awake, alert, and fully oriented, in no acute distress. HEAD: Normal with no signs of trauma. EYES: PERRL, extraocular movements intact, sclera anicteric, conjunctiva clear. No ptosis. ENT: Ears normal, nares patent, oropharynx clear without exudates, moist mucous membranes. NECK: Trachea midline, full range of motion, supple. LUNGS: Breath sounds equal, clear to auscultation bilaterally, no wheezes, no crackles, no accessory muscle use. HEART: Regular rate and rhythm, S1, S2 without murmur, rub or gallop. ABDOMEN: Soft, nontender, large abdomen , normoactive bowel sounds, no guarding , no rebound, no hepatosplenomegaly, no masses. EXTREMITIES: 2+ pulses, warm, well-perfused, no edema. NEUROLOGICAL: Cranial nerves II through XII grossly intact. Normal speech, gait not observed. PSYCH: Normal mood, normal affect. SKIN: Warm, dry, normal turgor, no rashes or lesions noted CBCD WBC 7.0 K/mm3 (4.0-10.0) 12/14/16 06:45 RBC 3.06 M/mm3 (3.60-5.2) L 12/14/16 06:45 Hgb 8.2 GM/dL (10.7-15.3) L 12/14/16 06:45 Hct 25.8 % (32.4-45.2) L 12/14/16 06:45 MCV 84.3 fl (80-96) 12/14/16 06:45 MCHC 31.9 g/dl (32.0-36.0) L 12/14/16 06:45 RDW 18.3 % (11.6-15.6) H 12/14/16 06:45 Plt Count 269 K/MM3 (134-434) 12/14/16 06:45 MPV 8.5 fl (7.5-11.1) 12/14/16 06:45 CMP Sodium 141 mmol/L (136-145) 12/14/16 06:45 Potassium 3.9 mmol/L (3.5-5.1) 12/14/16 06:45 Chloride 103 mmol/L (98-107) 12/14/16 06:45 Carbon Dioxide 28 mmol/L (21-32) 12/14/16 06:45 Anion Gap 10 (8-16) 12/14/16 06:45 BUN 5 mg/dL (7-18) L D 12/14/16 06:45 Creatinine 0.7 mg/dL (0.55-1.02) 12/14/16 06:45 Creat Clearance w eGFR > 60 (>60) 12/14/16 06:45 Random Glucose 133 mg/dL (74-106) H D 12/14/16 06:45 Calcium 8.3 mg/dL (8.5-10.1) L 12/14/16 06:45 Total Bilirubin 0.2 mg/dL (0.2-1.0) 12/14/16 06:45 AST 12 U/L (15-37) L 12/14/16 06:45 ALT 49 U/L (12-78) 12/14/16 06:45 Alkaline Phosphatase 120 U/L (45-117) H 12/14/16 06:45 Total Protein 6.1 g/dl (6.4-8.2) L 12/14/16 06:45 Albumin 2.7 g/dl (3.4-5.0) L 12/14/16 06:45 Current Medications Generic Name Dose Route Start Last Admin Trade Name Freq PRN Reason Stop Dose Admin Acetaminophen 650 mg 12/11/16 19:55 Tylenol - PO Q6H PRN PAIN Albuterol/Ipratropium 1 amp 12/11/16 22:00 12/15/16 14:05 Duoneb - NEB 1 amp Q4HPO [facility] Administration Alprazolam 0.25 mg 12/13/16 11:22 Xanax - PO DAILY PRN ANXIETY Alprazolam 0.25 mg 12/13/16 22:00 12/15/16 10:07 Xanax - PO 0.25 mg BID EMMY Administration Baclofen 20 mg 12/11/16 22:00 12/15/16 13:23 Lioresal - PO 20 mg TID EMMY Administration Budesonide/Formoterol Fumarate 2 puff 12/11/16 22:00 12/15/16 12:56 Symbicort 160/4.5mcg - IH 2 puff BID EMMY Administration Cholecalciferol 2,000 unit 12/12/16 10:00 12/15/16 09:59 Vitamin D3 - PO 2,000 unit DAILY [facility] Administration Diltiazem HCl 60 mg 12/12/16 00:00 12/15/16 13:21 Cardizem - PO 60 mg Q6HPO EMMY Administration Diphenhydramine HCl 50 mg 12/13/16 11:20 12/15/16 13:38 Benadryl Oral Solution - PO 50 mg Q6H PRN Administration FOR ITCHING Docusate Sodium 300 mg 12/11/16 22:00 12/14/16 21:47 Colace - PO Not Given HS [facility] Doxepin HCl 25 mg 12/11/16 22:00 12/14/16 21:47 Sinequan - PO 25 mg HS [facility] Administration Eletriptan 40 mg 12/11/16 19:55 Relpax - PO DAILY PRN HEADACHE Enoxaparin Sodium 40 mg 12/14/16 10:00 12/15/16 10:13 Lovenox - SQ 40 mg DAILY [facility]MM[facility] Administration Gabapentin 300 mg 12/11/16 22:00 12/15/16 13:23 Neurontin - PO 300 mg TID EMMY Administration Hydromorphone HCl 4 mg 12/12/16 18:04 12/15/16 13:39 Dilaudid - PO 4 mg Q4HWA PRN Administration PAIN Insulin Aspart 1 vial 12/11/16 22:00 12/15/16 12:27 Novolog Vial Sliding Scale - SQ Not Given ACHS [facility] Protocol Lactobacillus Acidophilus 1 tab 12/11/16 22:00 12/15/16 09:59 Bacid - PO 1 tab BID EMM[facility] Administration Levothyroxine Sodium 25 mcg 12/12/16 07:00 12/15/16 06:08 Synthroid - PO 25 mcg DAILY@0700 [facility] Administration Metoprolol Tartrate 25 mg 12/11/16 22:00 12/15/16 13:14 Lopressor - PO Not Given TID EMM[facility] Metronidazole 500 mg 12/12/16 22:00 12/15/16 13:23 Flagyl - PO 500 mg TID EMM[facility] Administration Multi-Ingredient Ointment 1 applic 12/11/16 22:00 12/15/16 12:56 Zinc Oxide TP 1 applic BID [facility]MM[facility] Administration Multivitamins/Minerals/Vitamin C 1 tab 12/12/16 10:00 12/15/16 09:59 Tab-A-Vit - PO 1 tab DAILY [facility] Administration Ondansetron HCl 4 mg 12/15/16 11:33 12/15/16 12:47 Zofran Odt - SL 4 mg Q6H PRN Administration NAUSEA AND/OR VOMITING Pancrelipase 3 cap 12/12/16 08:00 12/15/16 12:[address] 6,000 Units Capsule PO Not Given TIDCM [facility] Pantoprazole Sodium 40 mg 12/11/16 22:00 12/15/16 10:07 Protonix - PO 40 mg BID EMM[facility] Administration Polyethylene Glycol 17 gm 12/12/16 10:00 12/15/16 10:00 Miralax (For Daily Use) - PO Not Given DAILY [facility] Prednisone 10 mg 12/12/16 10:00 12/15/16 09:59 Deltasone - PO 10 mg DAILY [facility] Administration Roflumilast 500 mcg 12/12/16 10:00 12/15/16 12:53 Daliresp - PO 500 mcg DAILY [facility] Administration Zolpidem Tartrate 10 mg 12/14/16 22:10 12/14/16 22:33 Ambien - PO 10 mg HS PRN Administration INSOMNIA Microbiology 12/12/16 16:00 Stool Gram Stain - Final 12/12/16 13:17 Stool Clostridium difficile Antigen ([facility]) - Final 12/12/16 13:17 Stool Clostridium difficile Toxin Assay - Final 12/11/16 18:44 Urine - Urine Clean Catch Urine Culture - Final ASSESSMENT AND PLAN: Patient is a 51 year old female with a PMHx of Afib, DM, HTN, HLD, 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 # s/p abdominal pain with diarrhea; has no darrhea today. Patient is on PO Flagyl prophylactically toxin negative with positive antigen but has no diarrhea. GI consult , IVF continue .Dilaudid prn for pain # s/p hypokalemia repleted. # Hx of COPD with chronic hypoxic failure No current exacerbation ,continue trach collar and treatment, for consult -keep O2 sat >88% ,on Daliresp, Continue home medication Prednisone 10mg PO daily ,Continue bronchodilators. #Anxiety disorder/ Depression continue Xanax and doxepin #Anemia with hemoglobin of 8.2 asymtomatic ,transfuse if drops below 7.0 # hx of Pruritis, Benadryl prn # nausea and Vomiting Zofran prn # Hx of Hypothryoidism continue synthroid # T2DM Novolog sliding scale , levemir 5 u Sq BID # hx of PAF continue cardizem Po and lopressor Po # Hx of HTN continue po cardizem Po and lopressor Po DVT Px: SCD, heparin SQ
[2016-12-15] MEDS ORDERED: INSULIN (NOVOLOG) ASPART 100 UNITS/ML 10ML VIAL ONE ×2 (19:08→21:40)
[2016-12-15] MEDS: ZOLPIDEM TARTRATE 5 MG TABLET PO PRN (22:51)
[2016-12-15] MEDS: DOCUSATE SODIUM 100 MG CAPSULE (FP) PO SCH (22:52)
[2016-12-15] MEDS: DOXEPIN HCL 25 MG CAPSULE PO SCH (22:52)
[2016-12-16] MEDS ORDERED: PT OWN MED DRAWER 7, Y5N ONE ×5 (00:48→21:08)
[2016-12-16] MEDS: dilTIAZem HCL 60 MG TABLET (FP) PO SCH ×5 (00:50→23:56)
[2016-12-16] MEDS: ALBUTEROL SO4 2.5/IPRATROPIUM 0.5 INH SOL 3 ML VIAL.NEB. NEB SCH ×6 (02:44→22:20)
[2016-12-16] MEDS: metroNIDAZOLE 250 MG TABLET PO SCH ×3 (06:00→21:29)
[2016-12-16] MEDS ORDERED: HYDROmorphone HCL 2 MG TABLET PO PRN (06:19)
[2016-12-16] MEDS: BACLOFEN 10 MG TABLET (FP) PO SCH ×3 (06:28→21:29)
[2016-12-16] MEDS: LEVOTHYROXINE NA 25 MCG TABLET (FP) PO SCH (06:28)
[2016-12-16] MEDS: GABAPENTIN 300 MG CAPSULE (FP) PO SCH ×3 (06:30→21:28)
[2016-12-16] MEDS: METOPROLOL TARTRATE 25 MG TABLET (FP) PO SCH ×3 (06:30→21:28)
[2016-12-16] MEDS: INSULIN SLIDING SCALE (NOVOLOG) 1 VIAL SQ SCH ×4 (06:31→21:29)
--- NOTE | 2016-12-16 07:58 | PN ---
Physical Exam: SUBJECTIVE: Patient seen and examined c/o of diarrhea, afraid to eat because of diarrhea. still has left sided abdominal pain. demanding change of dilaudid to 4mg po q4hrs. would not discuss further until pain medication was adjusted. explained to patient that she was lethargic yesterday and pain medication was adjusted but she began to yell and refused examination. no bowel movements overnight, discussed with aides. OBJECTIVE: Vital Signs Period Temp Pulse Resp BP Sys/Dan Pulse Ox Last 24 Hr 98.2 F-99.0 F 94-110 - 100-104/58-62 98-98 PATIENT DECLINED PHYSICAL EXAM. Laboratory Results - last 24 hr 12/14/16 12/15/16 12/15/16 06:45 11:53 17:48 POC Glucometer 149 298 Iron 30 TIBC 260 Iron Saturation 12 L 12/15/16 12/16/16 21:26 06:27 POC Glucometer 218 223 Iron TIBC Iron Saturation Active Medications Generic Name Dose Route Start Last Admin Trade Name Freq PRN Reason Stop Dose Admin Acetaminophen 650 mg 12/11/16 19:55 Tylenol - PO Q6H PRN PAIN Albuterol/Ipratropium 1 amp 12/11/16 22:00 12/16/16 06:56 Duoneb - NEB 1 amp Q4HPO [facility]MM[facility] Administration Alprazolam 0.25 mg 12/13/16 11:22 Xanax - PO DAILY PRN ANXIETY Alprazolam 0.25 mg 12/13/16 22:00 12/15/16 21:31 Xanax - PO 0.25 mg BID EMMY Administration Baclofen 20 mg 12/11/16 22:00 12/16/16 06:28 Lioresal - PO 20 mg TID EMMY Administration Budesonide/Formoterol Fumarate 2 puff 12/11/16 22:00 12/15/16 21:38 Symbicort 160/4.5mcg - IH 2 puff BID [facility] Administration Cholecalciferol 2,000 unit 12/12/16 10:00 12/15/16 09:59 Vitamin D3 - PO 2,000 unit DAILY [facility] Administration Diltiazem HCl 60 mg 12/12/16 00:00 12/16/16 06:30 Cardizem - PO 60 mg Q6HPO EMM[facility] Administration Diphenhydramine HCl 50 mg 12/13/16 11:20 12/15/16 13:38 Benadryl Oral Solution - PO 50 mg Q6H PRN Administration FOR ITCHING Docusate Sodium 300 mg 12/11/16 22:00 12/15/16 22:52 Colace - PO Not Given HS EMM[facility] Doxepin HCl 25 mg 12/11/16 22:00 12/15/16 22:52 Sinequan - PO 25 mg HS [facility] Administration Eletriptan 40 mg 12/11/16 19:55 Relpax - PO DAILY PRN HEADACHE Enoxaparin Sodium 40 mg 12/14/16 10:00 12/15/16 10:13 Lovenox - SQ 40 mg DAILY [facility] Administration Gabapentin 300 mg 12/11/16 22:00 12/16/16 06:30 Neurontin - PO 300 mg TID EMM[facility] Administration Hydromorphone HCl 2 mg 12/16/16 06:19 12/16/16 07:44 Dilaudid - PO 2 mg Q8H PRN Administration PAIN Insulin Aspart 1 vial 12/11/16 22:00 12/16/16 06:31 Novolog Vial Sliding Scale - SQ 4 units ACHS [facility] Administration Protocol Lactobacillus Acidophilus 1 tab 12/11/16 22:00 12/15/16 21:29 Bacid - PO 1 tab BID EMM[facility] Administration Levothyroxine Sodium 25 mcg 12/12/16 07:00 12/16/16 06:28 Synthroid - PO 25 mcg DAILY@0700 [facility] Administration Metoprolol Tartrate 25 mg 12/11/16 22:00 12/16/16 06:30 Lopressor - PO 25 mg TID EMMY Administration Metronidazole 500 mg 12/12/16 22:00 12/16/16 06:00 Flagyl - PO 500 mg TID EMM[facility] Administration Multi-Ingredient Ointment 1 applic 12/11/16 22:00 12/15/16 21:38 Zinc Oxide TP 1 applic BID EMM[facility] Administration Multivitamins/Minerals/Vitamin C 1 tab 12/12/16 10:00 12/15/16 09:59 Tab-A-Vit - PO 1 tab DAILY [facility] Administration Ondansetron HCl 4 mg 12/15/16 11:33 12/15/16 12:47 Zofran Odt - SL 4 mg Q6H PRN Administration NAUSEA AND/OR VOMITING Pancrelipase 3 cap 12/12/16 08:00 12/15/16 18:57 Eamon Turner 6,000 Units Capsule PO 3 cap TIDCM [facility] Administration Pantoprazole Sodium 40 mg 12/11/16 22:00 12/15/16 21:28 Protonix - PO 40 mg BID EMM[facility] Administration Polyethylene Glycol 17 gm 12/12/16 10:00 12/15/16 10:00 Miralax (For Daily Use) - PO Not Given DAILY [facility] Prednisone 10 mg 12/12/16 10:00 12/15/16 09:59 Deltasone - PO 10 mg DAILY [facility] Administration Roflumilast 500 mcg 12/12/16 10:00 12/15/16 12:53 Daliresp - PO 500 mcg DAILY [facility] Administration Zolpidem Tartrate 10 mg 12/14/16 22:10 12/15/16 22:51 Ambien - PO 10 mg HS PRN Administration INSOMNIA ASSESSMENT/PLAN: 51 yr old woman with PMHx of Afib, DM, HTN, HLD, COPD-oxygen dependent s/p tracheostomy, uterine CA with mets to spine, colitis, bipolar depression admitted for diarrhea. - no surgical intervention at this time, Dr. Ly consult appreciated - Dr. Esparza Gi consulted. #Abdominal pain, - despite complaints of diarrhea, after discussing with staff, patient has not had more than 2-3 bowel movements in several hours. Stool is soft, unformed, solid in consistency and brown. not watery, not liquid in consistency, nonbloody. low suspicion for C.diff, will d/c flagyl. - Miralax and colace also d/c'ed. dose of imodium provided to patient as one time dose given, however will avoid standing dose to avoid constipation as patient is on high doses of pain medications. - C.diff ag pos, toxin negative - flagyl 500mg TID -- start 12/12 - stop 12/16 - creon 3 cap po TID - zofran 4mg sl, protonix 40mg po bid #COPD/chronic hypoxic resp failure, s/p tracheostomy on 40% oxygen - currently stable - maintian o2, >90% - deltasone 10mg po daily - daliresp 500 mcq daily - Dr. Srivastava consulted #DM - NSS - levemir 5units subq BID - ACHS POC #Anxiety - xanax, sinequan #Hypothyroid - synthroid qdaily #Paraxysmal Afib, currently NSR, rate controlled - cardizem - lopressor -DVT: SCD, heparin SQ Disposition -Full code -patient from detention Visit type - Emergency Visit Emergency Visit: No - New Patient This patient is new to me today: No - Critical Care Critical Care patient: No - Discharge Referral Referred to [facility] Med P.C.: No
[2016-12-16] MEDS ORDERED: HYDROmorphone HCL 2 MG TABLET PO ONE (08:15)
[2016-12-16] MEDS: diphenhydrAMINE HCL 12.5 MG/5 ML UNIT-DOSE CUPS PO PRN ×2 (08:19→18:01)
[2016-12-16] MEDS: LIPASE/PROTEASE/AMYLASE 6,000 UNIT CAPSULE PO SCH ×3 (08:58→18:05)
[2016-12-16] MEDS: ALPRAZolam 0.25 MG TABLET PO SCH ×2 (10:58→21:28)
[2016-12-16] MEDS: PANTOPRAZOLE 40 MG TABLET (FP) PO SCH ×2 (10:58→21:28)
[2016-12-16] MEDS: predniSONE 10 MG TABLET (UD) PO SCH (10:58)
[2016-12-16] MEDS: ONDANSETRON *ODT* 4 MG TABLET SL PRN (10:58)
[2016-12-16] MEDS: LACTOBACILLUS ACIDOPHILUS 1 EACH TAB (FP) PO SCH ×2 (10:58→21:29)
[2016-12-16] MEDS: MULTIVITAMINS (DAILY MVI) TABLET (FP) PO SCH (10:58)
[2016-12-16] MEDS: CHOLECALCIFEROL (VITAMIN D3) 1,000 UNIT TABLET (FP) PO SCH (10:58)
[2016-12-16] MEDS: POLYETHYLENE GLYCOL 3350 119 GM BTL PO SCH (10:59)
[2016-12-16] MEDS: ROFLUMILAST 500 MCG TABLET PO SCH (10:59)
[2016-12-16] MEDS: BUDESONIDE/FORMETEROL FUMARATE 160/4.5 mcg INHALER IH SCH ×2 (11:00→21:31)
--- NOTE | 2016-12-16 12:06 | PN ---
Progress Note (short form) - Note Progress Note: PULMONARY Breathing about the same. +cough and wheezing. Last Vital Signs Temp Pulse Resp BP Pulse Ox 98.2 F 104 H 20 104/62 91 L 12/16/16 06:00 12/16/16 10:08 12/16/16 06:00 12/16/16 06:00 12/16/16 10:08 Gen: NAD at rest Heart: RRR Lung: scattered bilateral wheezes, rhonchi Abd: soft, mild TTP, no rebound, obese Ext: no edema CBC, BMP 12/14/16 06:45 12/14/16 06:45 Active Medications Acetaminophen (Tylenol -) 650 mg PO Q6H PRN PRN Reason: PAIN Albuterol/Ipratropium (Duoneb -) 1 amp NEB Q4HPO [facility] Last Admin: 12/16/16 10:07 Dose: 1 amp Alprazolam (Xanax -) 0.25 mg PO BID [facility] Last Admin: 12/16/16 10:58 Dose: 0.25 mg Baclofen (Lioresal -) 20 mg PO TID [facility] Last Admin: 12/16/16 06:28 Dose: 20 mg Budesonide/Formoterol Fumarate (Symbicort 160/4.5mcg -) 2 puff IH BID [facility] Last Admin: 12/16/16 11:00 Dose: 2 puff Cholecalciferol (Vitamin D3 -) 2,000 unit PO DAILY [facility] Last Admin: 12/16/16 10:58 Dose: 2,000 unit Diltiazem HCl (Cardizem -) 60 mg PO Q6HPO [facility] Last Admin: 12/16/16 06:30 Dose: 60 mg Diphenhydramine HCl (Benadryl Oral Solution -) 50 mg PO Q6H PRN PRN Reason: FOR ITCHING Last Admin: 12/16/16 08:19 Dose: 50 mg Docusate Sodium (Colace -) 300 mg PO HS [facility] Last Admin: 12/15/16 22:52 Dose: Not Given Doxepin HCl (Sinequan -) 25 mg PO HS [facility] Last Admin: 12/15/16 22:52 Dose: 25 mg Eletriptan (Relpax -) 40 mg PO DAILY PRN PRN Reason: HEADACHE Enoxaparin Sodium (Lovenox -) 40 mg SQ DAILY [facility] Last Admin: 12/15/16 10:13 Dose: 40 mg Gabapentin (Neurontin -) 300 mg PO TID [facility] Last Admin: 12/16/16 06:30 Dose: 300 mg Hydromorphone HCl (Dilaudid -) 4 mg PO Q4H PRN PRN Reason: PAIN Insulin Aspart (Novolog Vial Sliding Scale -) 1 vial SQ ACHS [facility] PRN Reason: Protocol Last Admin: 12/16/16 06:31 Dose: 4 units Lactobacillus Acidophilus (Bacid -) 1 tab PO BID [facility] Last Admin: 12/16/16 10:58 Dose: 1 tab Levothyroxine Sodium (Synthroid -) 25 mcg PO DAILY@0700 [facility] Last Admin: 12/16/16 06:28 Dose: 25 mcg Metoprolol Tartrate (Lopressor -) 25 mg PO TID [facility] Last Admin: 12/16/16 06:30 Dose: 25 mg Metronidazole (Flagyl -) 500 mg PO TID [facility] Last Admin: 12/16/16 06:00 Dose: 500 mg Multi-Ingredient Ointment (Zinc Oxide) 1 applic TP BID [facility] Last Admin: 12/15/16 21:38 Dose: 1 applic Multivitamins/Minerals/Vitamin C (Tab-A-Vit -) 1 tab PO DAILY [facility] Last Admin: 12/16/16 10:58 Dose: 1 tab Ondansetron HCl (Zofran Odt -) 4 mg SL Q6H PRN PRN Reason: NAUSEA AND/OR VOMITING Last Admin: 12/16/16 10:58 Dose: 4 mg Pancrelipase (Creon Dr 6,000 Units Capsule) 3 cap PO TIDCM [facility] Last Admin: 12/16/16 08:58 Dose: 3 cap Pantoprazole Sodium (Protonix -) 40 mg PO BID [facility] Last Admin: 12/16/16 10:58 Dose: 40 mg Polyethylene Glycol (Miralax (For Daily Use) -) 17 gm PO DAILY [facility] Last Admin: 12/16/16 10:59 Dose: Not Given Prednisone (Deltasone -) 10 mg PO DAILY [facility] Last Admin: 12/16/16 10:58 Dose: 10 mg Roflumilast (Daliresp -) 500 mcg PO DAILY [facility] Last Admin: 12/16/16 10:59 Dose: 500 mcg Sucralfate (Carafate -) 1 gm PO QID [facility] Zolpidem Tartrate (Ambien -) 10 mg PO HS PRN PRN Reason: INSOMNIA Last Admin: 12/15/16 22:51 Dose: 10 mg A/P Abdominal Pain/Diarrhea + C diff Ag COPD Chronic Hypoxic Respiratory Failure s/p Tracheostomy Paroxysmal Atrial Fibrillation - on empiric antibiotics - O2 to keep SpO2 >90% - inhaled bronchodilators - would defer decannulation until pt stable - can ask ENT to downsize trach electively in preparation for decannulation at half-way - DVT prophylaxis Problem List - Problems (1) Infectious diarrhea Code(s): A09 - INFECTIOUS GASTROENTERITIS AND COLITIS, UNSPECIFIED (2) COPD (chronic obstructive pulmonary disease) Code(s): J44.9 - CHRONIC OBSTRUCTIVE PULMONARY DISEASE, UNSPECIFIED (3) Chronic respiratory failure with hypoxia Code(s): J96.11 - CHRONIC RESPIRATORY FAILURE WITH HYPOXIA (4) Paroxysmal atrial fibrillation Code(s): I48.0 - PAROXYSMAL ATRIAL FIBRILLATION (5) Diabetes mellitus Code(s): E11.9 - TYPE 2 DIABETES MELLITUS WITHOUT COMPLICATIONS
[2016-12-16] MEDS: HYDROmorphone HCL 2 MG TABLET PO PRN ×2 (13:41→18:01)
[2016-12-16] MEDS: ENOXAPARIN NA (PORCINE) 40 MG/0.4 ML DISP.SYRIN SQ SCH (13:42)
--- NOTE | 2016-12-16 14:06 | PN ---
Teaching Attending Note Name of Resident: Melanie Pineda ATTENDING PHYSICIAN STATEMENT I saw and evaluated the patient. I reviewed the resident's note and discussed the case with the resident. I agree with the resident's findings and plan as documented. SUBJECTIVE: Patient is c/o having diarrhea and continues to ask for Imodium but patient has soft formed stool. Doesn't want to leave the hospital asking to keep her one more day. OBJECTIVE: Vital Signs Period Temp Pulse Resp BP Sys/Dan Pulse Ox Last 24 Hr 98.2 F-99.0 F 94-110 20-22 100-111/58-67 91-98 GENERAL: The patient is awake, alert, and fully oriented, in no acute distress. HEAD: Normal with no signs of trauma. EYES: PERRL, extraocular movements intact, sclera anicteric, conjunctiva clear. No ptosis. ENT: Ears normal, nares patent, oropharynx clear without exudates, moist mucous membranes. NECK: Trachea midline, full range of motion, supple. LUNGS: Breath sounds equal, clear to auscultation bilaterally, no wheezes, no crackles, no accessory muscle use. HEART: Regular rate and rhythm, S1, S2 without murmur, rub or gallop. ABDOMEN: Soft, large abdomen, large mid scar, nontender, nondistended, normoactive bowel sounds, no guarding, no rebound, no hepatosplenomegaly, no masses appreciated. EXTREMITIES: 2+ pulses, warm, well-perfused, no edema. NEUROLOGICAL: Cranial nerves II through XII grossly intact. Normal speech, gait not observed. PSYCH: Normal mood, normal affect. SKIN: Warm, dry, normal turgor, no rashes or lesions noted CBCD WBC 7.0 K/mm3 (4.0-10.0) 12/14/16 06:45 RBC 3.06 M/mm3 (3.60-5.2) L 12/14/16 06:45 Hgb 8.2 GM/dL (10.7-15.3) L 12/14/16 06:45 Hct 25.8 % (32.4-45.2) L 12/14/16 06:45 MCV 84.3 fl (80-96) 12/14/16 06:45 MCHC 31.9 g/dl (32.0-36.0) L 12/14/16 06:45 RDW 18.3 % (11.6-15.6) H 12/14/16 06:45 Plt Count 269 K/MM3 (134-434) 12/14/16 06:45 MPV 8.5 fl (7.5-11.1) 12/14/16 06:45 CMP Sodium 141 mmol/L (136-145) 12/14/16 06:45 Potassium 3.9 mmol/L (3.5-5.1) 12/14/16 06:45 Chloride 103 mmol/L (98-107) 12/14/16 06:45 Carbon Dioxide 28 mmol/L (21-32) 12/14/16 06:45 Anion Gap 10 (8-16) 12/14/16 06:45 BUN 5 mg/dL (7-18) L D 12/14/16 06:45 Creatinine 0.7 mg/dL (0.55-1.02) 12/14/16 06:45 Creat Clearance w eGFR > 60 (>60) 12/14/16 06:45 Random Glucose 133 mg/dL (74-106) H D 12/14/16 06:45 Calcium 8.3 mg/dL (8.5-10.1) L 12/14/16 06:45 Total Bilirubin 0.2 mg/dL (0.2-1.0) 12/14/16 06:45 AST 12 U/L (15-37) L 12/14/16 06:45 ALT 49 U/L (12-78) 12/14/16 06:45 Alkaline Phosphatase 120 U/L (45-117) H 12/14/16 06:45 Total Protein 6.1 g/dl (6.4-8.2) L 12/14/16 06:45 Albumin 2.7 g/dl (3.4-5.0) L 12/14/16 06:45 Current Medications Generic Name Dose Route Start Last Admin Trade Name Freq PRN Reason Stop Dose Admin Acetaminophen 650 mg 12/11/16 19:55 Tylenol - PO Q6H PRN PAIN Albuterol/Ipratropium 1 amp 12/11/16 22:00 12/16/16 18:29 Duoneb - NEB 1 amp Q4HPO EMMY Administration Alprazolam 0.25 mg 12/13/16 22:00 12/16/16 10:58 Xanax - PO 0.25 mg BID EMMY Administration Baclofen 20 mg 12/11/16 22:00 12/16/16 13:41 Lioresal - PO 20 mg TID EMMY Administration Budesonide/Formoterol Fumarate 2 puff 12/11/16 22:00 12/16/16 11:00 Symbicort 160/4.5mcg - IH 2 puff BID EMMY Administration Cholecalciferol 2,000 unit 12/12/16 10:00 12/16/16 10:58 Vitamin D3 - PO 2,000 unit DAILY EMMY Administration Diltiazem HCl 60 mg 12/12/16 00:00 12/16/16 18:06 Cardizem - PO 60 mg Q6HPO EMMY Administration Diphenhydramine HCl 50 mg 12/13/16 11:20 12/16/16 18:01 Benadryl Oral Solution - PO 50 mg Q6H PRN Administration FOR ITCHING Docusate Sodium 300 mg 12/11/16 22:00 12/15/16 22:52 Colace - PO Not Given HS [facility] Doxepin HCl 25 mg 12/11/16 22:00 12/15/16 22:52 Sinequan - PO 25 mg HS [facility] Administration Eletriptan 40 mg 12/11/16 19:55 Relpax - PO DAILY PRN [place] Enoxaparin Sodium 40 mg 12/14/16 10:00 12/16/16 13:42 Lovenox - SQ 40 mg DAILY EMMY Administration Gabapentin 300 mg 12/11/16 22:00 12/16/16 14:25 Neurontin - PO 300 mg TID [facility] Administration Hydromorphone HCl 4 mg 12/16/16 08:07 12/16/16 18:01 Dilaudid - PO 4 mg Q4H PRN Administration PAIN Insulin Aspart 1 vial 12/11/16 22:00 12/16/16 18:24 Novolog Vial Sliding Scale - SQ 8 units ACHS [facility] Administration Protocol Lactobacillus Acidophilus 1 tab 12/11/16 22:00 12/16/16 10:58 Bacid - PO 1 tab BID EMMY Administration Levothyroxine Sodium 25 mcg 12/12/16 07:00 12/16/16 06:28 Synthroid - PO 25 mcg DAILY@0700 EMMY Administration Metoprolol Tartrate 25 mg 12/11/16 22:00 12/16/16 14:24 Lopressor - PO 25 mg TID EMMY Administration Metronidazole 500 mg 12/12/16 22:00 12/16/16 14:24 Flagyl - PO 500 mg TID EMMY Administration Multi-Ingredient Ointment 1 applic 12/11/16 22:00 12/16/16 14:25 Zinc Oxide TP 1 applic BID EMMY Administration Multivitamins/Minerals/Vitamin C 1 tab 12/12/16 10:00 12/16/16 10:58 Tab-A-Vit - PO 1 tab DAILY EMMY Administration Ondansetron HCl 4 mg 12/15/16 11:33 12/16/16 10:58 Zofran Odt - SL 4 mg Q6H PRN Administration NAUSEA AND/OR VOMITING Pancrelipase 3 cap 12/12/16 08:00 12/16/16 18:05 Creon 6,000 Units Capsule PO Not Given TIDCM [facility] Pantoprazole Sodium 40 mg 12/11/16 22:00 12/16/16 10:58 Protonix - PO 40 mg BID EMMY Administration Polyethylene Glycol 17 gm 12/12/16 10:00 12/16/16 10:59 Miralax (For Daily Use) - PO Not Given DAILY [facility] Prednisone 10 mg 12/12/16 10:00 12/16/16 10:58 Deltasone - PO 10 mg DAILY EMMY Administration Roflumilast 500 mcg 12/12/16 10:00 12/16/16 10:59 Daliresp - PO 500 mcg DAILY EMMY Administration Sucralfate 1 gm 12/16/16 14:00 12/16/16 18:10 Carafate - PO Not Given QID [facility] Zolpidem Tartrate 10 mg 12/14/16 22:10 12/15/16 22:51 Ambien - PO 10 mg HS PRN Administration INSOMNIA Medication Instructions Recorded Acetaminophen [Tylenol .Regular 650 mg PO Q6H PRN #0 tablet 06/05/16 Strength -] Levothyroxine [Synthroid -] 25 mcg PO DAILY@0700 tablet 06/05/16 Albuterol 2.5/Ipratropium 0.5 1 amp NEB Q4HPO amp 09/17/16 [Duoneb -] Alprazolam [Xanax] 0.25 mg PO BID tablet MDD 2 09/17/16 Diltiazem [Cardizem -] 60 mg PO Q6HPO tablet 09/17/16 Magnesium Oxide [Mag-Ox -] 400 mg PO BID tablet 09/17/16 Albuterol Sulfate Inhaler - 2 puff IH Q4H PRN #0 inhaler 09/23/16 [Ventolin HFA Inhaler -] Baclofen [Lioresal -] 20 mg PO TID 10/01/16 Budesonide/Formeterol Fumarate 2 inh PO BID 11/01/16 [SYMBICORT 160/4.5mcg -] Diphenhydramine [Benadryl 12.5 25 mg PO Q4H PRN 11/01/16 MG/5 ML Oral Solution -] Doxepin HCl [Sinequan -] 25 mg PO HS 11/01/16 Eletriptan Hydrobromide [Relpax -] 40 mg PO PRN 11/01/16 Gabapentin [Neurontin -] 300 mg PO TID 11/01/16 Metoprolol Tartrate [Lopressor -] 25 mg PO TID 11/01/16 Omeprazole 40 mg PO BID 11/01/16 Polyethylene Glycol 3350 [Miralax 17 gm PO DAILY 11/01/16 119 gm Btl -] Roflumilast [Daliresp] 500 mcg PO DAILY 11/01/16 Zolpidem Tartrate [Ambien] 10 mg PO HS PRN MDD 1 11/01/16 Lipase/Protease/Amylase [Eamon Turner 3 cap PO TIDCM capsule. 11/07/16 6,000 Units Capsule] Insulin Sliding Scale [Novolog 0 units SQ ACHS PRN 11/08/16 Vial Sliding Scale -] Doxepin HCl [Sinequan -] 25 mg PO HS capsule 11/20/16 Hydromorphone [Dilaudid -] 2 mg PO Q8H PRN #0 tablet MDD 3 11/20/16 Lactobacillus Acidophilus [Bacid -] 1 tab PO BID tab 11/20/16 Loperamide HCl [Imodium -] 2 mg PO Q8H PRN #0 capsule 11/20/16 Metoclopramide HCl [Reglan -] 10 mg PO TIDAC tablet 11/20/16 Multivitamins [Multivit ([facility] 1 tab PO DAILY tab 11/20/16 Formulary)] Ondansetron [Zofran -] 4 mg PO Q4H PRN #0 tablet 11/20/16 Zinc Oxide 1 applic TP BID tube 11/20/16 Insulin (Levemir) [Levemir Vial] 5 unit SQ DAILY #1 vial 11/21/16 Cholecalciferol (Vitamin D3) 2,000 unit PO DAILY #30 tab 11/28/16 [Vitamin D3 -] Heparin - 5,000 unit SQ TID vial 11/28/16 Prednisone [Deltasone -] 20 mg PO DAILY tablet 11/28/16 Albuterol Sulfate Inhaler - 2 puff IH Q4H PRN #0 inhaler 11/29/16 [Ventolin HFA Inhaler -] Hydromorphone [Dilaudid -] 2 mg PO Q4HWA PRN #0 tablet MDD 6 11/29/16 Prednisone 10 mg PO DAILY #15 tablet 11/29/16 Metronidazole [Flagyl -] 500 mg PO TID #9 tablet 12/16/16 Sucralfate [Carafate -] 1 gm PO QID tablet 12/16/16 Flagyl 3 more days ASSESSMENT/PLAN: Patient is a 51 year old female with a PMHx of Afib, DM, HTN, HLD, 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 # s/p abdominal pain with diarrhea ; diarrhea improved has formed stool with negative c diff toxin, was getting empiric therapy with flagyl. will discontinue Flagyl. # s/p hypokalemia repleted with IVF 40meq kcl completed # hx of COPD with chronic hypoxic failure No current exacerbation ,continue trach collar and treatment, 's consult appreciated -keep O2 sat >88% ,on Daliresp, Continue home medication Prednisone 10mg PO daily ,Continue bronchodilators. #Anxiety disorder/ Depression continue Xanax and doxepin #Anemia with hemoglobin of 8.2 her baseline if the level drops further will transfuse. # hx of Pruritis, continue Benadryl prn # nausea and Vomiting prn zofran # Hx of Hypothryoidism continue synthroid # T2DM Novolog sliding scale , levemir 5 u Sq BID # hx of PAF continue cardizem Po and lopressor Po # Hx of HTN continue po cardizem Po and lopressor Po patient is going back to [facility] today. DVT Px: SCD, heparin SQ
[2016-12-16] MEDS ORDERED: LOPERAMIDE HCL 2 MG CAPSULE PO ONE (14:15)
[2016-12-16] MEDS: SUCRALFATE 1 GM TABLET (FP) PO SCH ×3 (14:24→21:28)
[2016-12-16] MEDS: ZINC OXIDE 20% TOPICAL OINTMENT 30 GM TUBE TP SCH ×2 (14:25→21:29)
--- NOTE | 2016-12-16 15:58 | DS ---
Physical Exam: SUBJECTIVE: Patient seen. Feels the same as she did during admission. continues to complain about diarrhea , despite having no more than 2-3 bowel movements max per 24hr. OBJECTIVE: Vital Signs Period Temp Pulse Resp BP Sys/Dan Pulse Ox Last 24 Hr 98.2 F-99.0 F 94-110 20-22 100-111/58-67 91-98 PHYSICAL EXAM Gen: NAD declined further physical examination. LABS Laboratory Tests 12/11/16 12/11/16 12/12/16 11:42 11:42 07:55 WBC 6.6 Hgb 9.5 L D Hct 29.5 L D Plt Count 288 Sodium 140 136 Potassium 3.5 3.1 L Chloride 100 103 Carbon Dioxide 28 28 BUN 8 D 6 L D Creatinine 0.6 0.5 L Lipase 115 12/12/16 07:55 WBC 6.2 Hgb 8.1 L D Hct 24.6 L D Plt Count 244 Sodium Potassium Chloride Carbon Dioxide BUN Creatinine Lipase Laboratory Results - last 24 hr 12/15/16 12/15/16 12/16/16 17:48 21:26 06:27 POC Glucometer 298 218 223 12/16/16 12:16 POC Glucometer 227 IMAGING Abd ultrasound: Ultrasound of the right upper quadrant of the abdomen is performed. Liver is fatty and enlarged and measures 20.6 cm in length without mass or biliary dilatation. The gallbladder is unremarkable. The CBD is not dilated and measures 3 mm in diameter. Right kidney measures 9.8 cm in length and is unremarkable. The visualized aorta and IVC are unremarkable. The pancreas is partially obscured but appears normal. CT abdomen w/o contrast: The liver is borderline in size with mild decreased attenuation suggestive of fatty liver. Partially distended stomach limiting evaluation of its wall without gross thickening. The spleen, pancreas, gallbladder, both adrenal glands and both kidneys remain unremarkable except for a tiny nonobstructing stone in mid to lower portion of the left kidney again seen. Previously visualized collection in the right anterior abdomen is no longer seen. There is now ill- defined soft tissue density measuring approximately 3.5 x 1.5 cm on the axial images and 1.6 cm on coronal images likely representing scarring. No organized collection or stranding of the surrounding fat is present. There is no evidence of small bowel obstruction. No enlarged retroperitoneal lymph nodes are identified. No free fluid or free air in the abdomen and pelvis. Normal stool burden in the colon without wall thickening. Partial distention of the urinary bladder without thickening of its wall. Perirectal and pericecal fat is clear. Note is again made of a small left periumbilical fat-containing hernia CT head without contrast: No evidence of acute intracranial hemorrhage, edema, midline shift, mass effect, or skull fracture. No CT evidence of acute territorial infarction. HOSPITAL COURSE: Date of Admission:12/11/16- Date of Discharge: 12/16/16 51 yr old woman with hx of Afib, HTN, HLD, asthma, DM, COPD on trach collar, uterine mets, hx of abdominal abscess, multiple admissions for abdominal pain presented with complaints of vomiting, diarrhea and left lower quadrant pain. CT of the abdomen and pelvis demonstrated no free air, no obstruction, no organized collection and a normal colon. Ultrasound showed normal gallbladder, common bile duct within normal limits and hepatomegaly. No acute surgical intervention was indicated at this time. Labs including wbc, liver function tests, amylase, lipase were all within normal limits. Evaluation by gastroenterology did not indicate invasive intervention. Urine culture was negative. C.diff antigen was positive while toxin was negative. She was empirically treated for 3 days with flagyl but given persistance of patient's complaints of loose stool and low suspicion for C.diff infection, flagyl was discontinued. Given extensive use of dilaudid, one time order of imodium was given to patient for complaint of loose stool. Bowel regimen of colace and miralax was also discontinued. At time of discharge patient's vitals were stable , she was afebrile and was tolerating oral intake well, frequently eating regular diet rather than the recommended diabetic/low sodium diet. She had no repeat episodes of vomiting. f/u recommended with Dr. Esparza for GI. Minutes to complete discharge: 55 Discharge Summary Reason For Visit: CHRONIC ABD PAIN/INFECTIOUS DIARRHEA Current Active Problems Chronic abdominal pain (Acute) Condition: Improved - Instructions Diet, Activity, Other Instructions: You can stop colace and senna until you feel that your diarrhea has resolved and then restart them as needed for your bowel habits. Resume your home medications. It is recommended to follow-up with ENT to downsize trach electively in preparation for decannulation at [facility]. Follow-up with your primary care physician, Dr. Srivastava your horse breeder, , your orthopedist as you were directed during your last admission. Follow-up with Dr. Esparza in one week. Follow the same instructions for your leg splint: OOB with assist only Short leg splint placed to right lower ext placed, Ortho Follow up with Dr Castorena in 10-14 days in their office, Non weight bearing to right lower ext, Ice , rest and elevate the ankle as needed. Need CBC , CMP in 1 week If you develop bloody diarrhea, your diarrhea becomes worse, you develop fever, vomiting blood or any new symptoms return to the hospital. Referrals: Bhavik Srivastava MD [Staff Physician] - 1 Week Arnav Castorena MD [Staff Physician] - 2 Weeks Juan Esparza MD [Staff Physician] - 1 Week Disposition: ALF FACILITY - Home Medications Comprehensive Discharge Medication List: Ambulatory Orders Acetaminophen [Tylenol .Regular Strength -] 650 mg PO Q6H PRN #0 tablet Levothyroxine [Synthroid -] 25 mcg PO DAILY@0700 tablet 06/05/16 Albuterol 2.5/Ipratropium 0.5 [Duoneb -] 1 amp NEB Q4HPO amp 09/17/16 Alprazolam [Xanax] 0.25 mg PO BID tablet MDD 2 09/17/16 Diltiazem [Cardizem -] 60 mg PO Q6HPO tablet 09/17/16 Magnesium Oxide [Mag-Ox -] 400 mg PO BID tablet 09/17/16 Albuterol Sulfate Inhaler - [Ventolin HFA Inhaler -] 2 puff IH Q4H PRN #0 inhaler 09/23/16 Baclofen [Lioresal -] 20 mg PO TID 10/01/16 Budesonide/Formeterol Fumarate [SYMBICORT 160/4.5mcg -] 2 inh PO BID 11/01/16 Diphenhydramine [Benadryl 12.5 MG/5 ML Oral Solution -] 25 mg PO Q4H PRN Doxepin HCl [Sinequan -] 25 mg PO HS 11/01/16 Eletriptan Hydrobromide [Relpax -] 40 mg PO PRN 11/01/16 Gabapentin [Neurontin -] 300 mg PO TID 11/01/16 Metoprolol Tartrate [Lopressor -] 25 mg PO TID 11/01/16 Omeprazole 40 mg PO BID 11/01/16 Polyethylene Glycol 3350 [Miralax 119 gm Btl -] 17 gm PO DAILY 11/01/16 Roflumilast [Daliresp] 500 mcg PO DAILY 11/01/16 Zolpidem Tartrate [Ambien] 10 mg PO HS PRN MDD 1 11/01/16 Lipase/Protease/Amylase [Creon Dr 6,000 Units Capsule] 3 cap PO TIDCM capsule.dr 11/07/16 Insulin Sliding Scale [Novolog Vial Sliding Scale -] 0 units SQ ACHS PRN Doxepin HCl [Sinequan -] 25 mg PO HS capsule 11/20/16 Hydromorphone [Dilaudid -] 2 mg PO Q8H PRN #0 tablet MDD 3 11/20/16 Lactobacillus Acidophilus [Bacid -] 1 tab PO BID tab 11/20/16 Loperamide HCl [Imodium -] 2 mg PO Q8H PRN #0 capsule 11/20/16 Metoclopramide HCl [Reglan -] 10 mg PO TIDAC tablet 11/20/16 Multivitamins [Multivit ([facility] Formulary)] 1 tab PO DAILY tab 11/20/16 Ondansetron [Zofran -] 4 mg PO Q4H PRN #0 tablet 11/20/16 Zinc Oxide 1 applic TP BID tube 11/20/16 Insulin (Levemir) [Levemir Vial] 5 unit SQ DAILY #1 vial 11/21/16 Cholecalciferol (Vitamin D3) [Vitamin D3 -] 2,000 unit PO DAILY #30 tab Heparin - 5,000 unit SQ TID vial 11/28/16 Prednisone [Deltasone -] 20 mg PO DAILY tablet 11/28/16 Albuterol Sulfate Inhaler - [Ventolin HFA Inhaler -] 2 puff IH Q4H PRN #0 inhaler 11/29/16 Hydromorphone [Dilaudid -] 2 mg PO Q4HWA PRN #0 tablet MDD 6 11/29/16 Prednisone 10 mg PO DAILY #15 tablet 11/29/16 Metronidazole [Flagyl -] 500 mg PO TID #9 tablet 12/16/16 Sucralfate [Carafate -] 1 gm PO QID tablet 12/16/16 This patient is new to me today: No Emergency Visit: No Critical Care patient: No - Discharge Referral Referred to [facility] No
[2016-12-16] MEDS: ZOLPIDEM TARTRATE 5 MG TABLET PO PRN (21:29)
[2016-12-16] MEDS: DOCUSATE SODIUM 100 MG CAPSULE (FP) PO SCH (21:30)
[2016-12-16] MEDS: DOXEPIN HCL 25 MG CAPSULE PO SCH (21:31)
[2016-12-17] MEDS: ALBUTEROL SO4 2.5/IPRATROPIUM 0.5 INH SOL 3 ML VIAL.NEB. NEB SCH ×4 (02:45→13:30)
[2016-12-17] MEDS: HYDROmorphone HCL 2 MG TABLET PO PRN ×3 (03:13→13:00)
[2016-12-17] MEDS: diphenhydrAMINE HCL 12.5 MG/5 ML UNIT-DOSE CUPS PO PRN ×2 (04:36→14:05)
[2016-12-17] MEDS: BACLOFEN 10 MG TABLET (FP) PO SCH ×2 (06:34→13:58)
[2016-12-17] MEDS: LEVOTHYROXINE NA 25 MCG TABLET (FP) PO SCH (06:34)
[2016-12-17] MEDS: dilTIAZem HCL 60 MG TABLET (FP) PO SCH ×2 (06:34→13:02)
[2016-12-17] MEDS: INSULIN SLIDING SCALE (NOVOLOG) 1 VIAL SQ SCH ×2 (06:35→12:15)
[2016-12-17] MEDS: GABAPENTIN 300 MG CAPSULE (FP) PO SCH ×2 (06:35→14:05)
[2016-12-17] MEDS: METOPROLOL TARTRATE 25 MG TABLET (FP) PO SCH ×2 (06:35→14:05)
[2016-12-17] MEDS: ONDANSETRON *ODT* 4 MG TABLET SL PRN (07:00)
[2016-12-17] MEDS ORDERED: PT OWN MED DRAWER 7, Y5N ONE ×4 (08:03→12:58)
[2016-12-17] MEDS: LIPASE/PROTEASE/AMYLASE 6,000 UNIT CAPSULE PO SCH ×2 (08:24→13:06)
[2016-12-17] MEDS: ENOXAPARIN NA (PORCINE) 40 MG/0.4 ML DISP.SYRIN SQ SCH (11:42)
[2016-12-17] MEDS: MULTIVITAMINS (DAILY MVI) TABLET (FP) PO SCH (11:43)
[2016-12-17] MEDS: predniSONE 10 MG TABLET (UD) PO SCH (11:43)
[2016-12-17] MEDS: SUCRALFATE 1 GM TABLET (FP) PO SCH ×2 (11:43→13:58)
[2016-12-17] MEDS: LACTOBACILLUS ACIDOPHILUS 1 EACH TAB (FP) PO SCH (11:43)
[2016-12-17] MEDS: PANTOPRAZOLE 40 MG TABLET (FP) PO SCH (11:44)
[2016-12-17] MEDS: ALPRAZolam 0.25 MG TABLET PO SCH (11:44)
[2016-12-17] MEDS: ROFLUMILAST 500 MCG TABLET PO SCH (11:44)
[2016-12-17] MEDS: CHOLECALCIFEROL (VITAMIN D3) 1,000 UNIT TABLET (FP) PO SCH (11:45)
[2016-12-17] MEDS: BUDESONIDE/FORMETEROL FUMARATE 160/4.5 mcg INHALER IH SCH (11:46)
[2016-12-17] MEDS: ZINC OXIDE 20% TOPICAL OINTMENT 30 GM TUBE TP SCH (13:59)
--- NOTE | 2016-12-17 14:37 | PN ---
Teaching Attending Note Name of Resident: Melanie Pineda ATTENDING PHYSICIAN STATEMENT I saw and evaluated the patient. I reviewed the resident's note and discussed the case with the resident. I agree with the resident's findings and plan as documented. SUBJECTIVE: no fever or chills. has ABd pain , in L side , one BM today , formed . OBJECTIVE: NAD , AAOx3 . CV: RRR Lungs: scattered wheezes , good air entry , no crackles Ext : R ankle and leg in a cast . Abd : soft, TTP in LLQ , no TTP in RUQ . nl BS . 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 treated initially with flagyl , stopped now . Imodium as needed 2- abd pain , chronic , no peritoneal signs , CT unremarkable , with no fluid collection 3- h/o COPD , with chronic resp failure s/p trach. stable . cont chronic 10 mg of prednisone , and NEbs 4- DM . cont levemir 5 u and SSI 5- h/o PA F: cont cardizem and lopressor dispo : dc'd yesterday , refused to leave . cont to be ready for dc today .
[2016-12-17 15:00] VITALS: BP 138/73; PULSE 102; TEMP 98.5
== END 2016-12-17 14:49 ==
LOC: JER 09:40 → UNDOADMOB 17:56 → JERBED 17:56 → UNDOADMOB 19:54 → OBSVTOIN 19:54 → INTOOBSV 19:54 → JERBED 23:11 → UNDOADMOB 23:11 → OBSVTOIN 23:11 → JERBED 12-12 13:36 → J8W 12-12 13:36 → JERBED 12-12 13:36 → J8W 12-12 13:36 → J5S 12-14 20:41
PROVIDERS: ADMIT Internal Medicine; ATTEND Internal Medicine
DX: K52.89 Other specified noninfective gastroenteritis and colitis (principal); R10.32 Left lower quadrant pain; J45.909 Unspecified asthma, uncomplicated; J44.9 Chronic obstructive pulmonary disease, unspecified; E78.5 Hyperlipidemia, unspecified; I10 Essential (primary) hypertension; D64.9 Anemia, unspecified; I48.0 Paroxysmal atrial fibrillation; F33.9 Major depressive disorder, recurrent, unspecified; E11.9 Type 2 diabetes mellitus without complications; M54.5 Low back pain; E03.9 Hypothyroidism, unspecified; C55 Malignant neoplasm of uterus, part unspecified; C79.51 Secondary malignant neoplasm of bone; J96.11 Chronic respiratory failure with hypoxia; E87.6 Hypokalemia; Z99.81 Dependence on supplemental oxygen
CPT/HCPCS: 36415; 70450-TC; 74176-TC; 76705-TC; 80053; 81003; 81015; 82150; 82728; 83540; 83550; 83605; 83690; 83735; 84100; 84703; 85025; 85651; 86850; 86900; 86901; 87086; 87205; 87324; 87449; 93005; 93010; 94640; 97163-GP; 99283-25; G0378; J0475; J1644

== ENCOUNTER 2017-02-22 23:37 | Inpatient (IN) | payer MEDICARE, OTHER ==
[2017-02-23 00:26] VITALS: BMI 26.9
--- NOTE | 2017-02-23 00:56 | PDOC ---
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 She states she is currently on doxycycline, but reports having left lower sided body aches and diarrhea since taking this medication. She reports her cough has been persistent and productive of yellow sputum. She states the cough keeps her up at night. She reports coughing hard a few days ago and recalls a pulling in the left side of her chest which then spread to a generalized aching in the left side of her body. She also reports a numbness and tingling to her hands and under her left foot. She reports eating an [place] muffin with eggs for breakfast and a taco for lunch, reports a couple episodes of diarrhea since eating, and denies eating since. She reports taking 4mg of Dilaudid for her pain as needed. She denies chest pain, headache and dizziness. She denies fever, vomiting, chills, and constipation. She denies dysuria, frequency, urgency and hematuria. Social history: former smoker. denies toxic habits now. 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) HTN: Yes Hypercholesterolemia: Yes Liver Disease: No Suicide Attempt (Hx): No Seizures: Yes (5 yrs ago had a seizure ( zofran and reglan given together as per patient) Thyroid Disease: No - Surgical History Abdominal Surgery: Yes (BOWEL RESECTION) Appendectomy: Yes (removed 1998) Cardiac Surgery: No Cholecystectomy: No Lung Surgery: No Neurologic Surgery: No Orthopedic Surgery: Yes (Back Sx T7,6) - Immunization History Td Vaccination: Yes TDAP Vaccination: Yes Immunization Up to Date: Yes - Psycho/Social/Smoking Cessation Hx Anxiety: No Suicidal Ideation: No Smoking Status: No Smoking History: Former smoker Have you smoked in the past 12 months: No Number of Cigarettes Smoked Daily: 3 If you are a former smoker, when did you quit?: 10/11/14 Information on smoking cessation initiated: No 'Breaking Loose' booklet given: 03/12/15 Hx Alcohol Use: No Drug/Substance Use Hx: No Substance Use Type: None Hx Substance Use Treatment: No <Kathi Spencer - Last Filed: 02/23/17 05:24> - Past Medical History Allergies/Adverse Reactions: Allergies Allergy/AdvReac Type Severity Reaction Status Date / Time oxycodone [Oxycodone] Allergy Severe Nausea Verified 02/23/17 05:20 oxycodone HCl [From Percocet] Allergy Severe Nausea Verified 02/23/17 05:20 aspirin Allergy Mild Verified 02/23/17 05:20 blueberry [Blueberry] Allergy Mild Swelling Verified 02/23/17 05:20 promethazine HCl Allergy Mild Verified 02/23/17 05:20 [From Phenergan] promethazine Allergy Verified 02/23/17 05:20 Home Medications: Ambulatory Orders Acetaminophen [Tylenol .Regular Strength -] 650 mg PO Q6H PRN #0 tablet Levothyroxine [Synthroid -] 25 mcg PO DAILY@0700 tablet 06/05/16 Albuterol 2.5/Ipratropium 0.5 [Duoneb -] 1 amp NEB Q4HPO amp 09/17/16 Alprazolam [Xanax] 0.25 mg PO BID tablet MDD 2 09/17/16 Diltiazem [Cardizem -] 60 mg PO Q6HPO tablet 09/17/16 Magnesium Oxide [Mag-Ox -] 400 mg PO BID tablet 09/17/16 Baclofen [Lioresal -] 20 mg PO TID 11/09/16 Budesonide/Formeterol Fumarate [SYMBICORT 160/4.5mcg -] 2 inh PO BID 11/01/16 Diphenhydramine [Benadryl 12.5 MG/5 ML Oral Solution -] 25 mg PO Q4H PRN Eletriptan Hydrobromide [Relpax -] 40 mg PO PRN 11/01/16 Gabapentin [Neurontin -] 300 mg PO TID 11/01/16 Metoprolol Tartrate [Lopressor -] 25 mg PO TID 11/01/16 Omeprazole 40 mg PO BID 11/01/16 Roflumilast [Daliresp] 500 mcg PO DAILY 11/01/16 Zolpidem Tartrate [Ambien] 10 mg PO HS PRN MDD 1 11/01/16 Lipase/Protease/Amylase [Eamon Turner 6,000 Units Capsule] 3 cap PO TIDCM capsule. 11/07/16 Insulin Sliding Scale [Novolog Vial Sliding Scale -] 0 units SQ ACHS PRN Doxepin HCl [Sinequan -] 25 mg PO HS capsule 11/20/16 Lactobacillus Acidophilus [Bacid -] 1 tab PO BID tab 11/20/16 Metoclopramide HCl [Reglan -] 10 mg PO TIDAC tablet 11/20/16 Multivitamins [Multivit ([facility] Formulary)] 1 tab PO DAILY tab 11/20/16 Ondansetron [Zofran -] 4 mg PO Q4H PRN #0 tablet 11/20/16 Zinc Oxide 1 applic TP BID tube 11/20/16 Insulin (Levemir) [Levemir Vial] 5 unit SQ DAILY #1 vial 11/21/16 Cholecalciferol (Vitamin D3) [Vitamin D3 -] 2,000 unit PO DAILY #30 tab Heparin - 5,000 unit SQ TID vial 11/28/16 Albuterol Sulfate Inhaler - [Ventolin HFA Inhaler -] 2 puff IH Q4H PRN #0 inhaler 11/29/16 Prednisone 10 mg PO DAILY #15 tablet 11/29/16 Sucralfate [Carafate -] 1 gm PO QID tablet 12/16/16 Hydromorphone [Dilaudid -] 4 mg PO Q4H PRN #0 tablet MDD 24mg 12/17/16 Review of Systems - Review of Systems Able to Perform ROS?: Yes Comments:: 02/23/17 01:27 GENERAL/CONSTITUTIONAL: No fever or chills. No weakness. HEAD, EYES, EARS, NOSE AND THROAT: No change in vision. No ear pain or discharge. No sore throat. CARDIOVASCULAR: No chest pain or shortness of breath. RESPIRATORY: (+)productive cough and wheezing, No hemoptysis. GASTROINTESTINAL: (+) nausea and diarrhea. No vomiting or constipation. GENITOURINARY: No dysuria, frequency, or change in urination. MUSCULOSKELETAL: (+) left sided chest wall, arm, and lower extremity pain. No joint or muscle swelling. SKIN: No rash NEUROLOGIC: No headache, vertigo, loss of consciousness, or change in strength/ sensation. ENDOCRINE: No increased thirst. No abnormal weight change. HEMATOLOGIC/LYMPHATIC: No anemia, easy bleeding, or history of blood clots. ALLERGIC/IMMUNOLOGIC: No hives or skin allergy. <Celina Tatum - Last Filed: 02/23/17 04:26> *Physical Exam - Vital Signs Last Vital Signs Temp Pulse Resp BP Pulse Ox 98.7 F 97 H 22 144/92 97 02/23/17 00:25 02/23/17 00:25 02/23/17 00:25 02/23/17 00:25 02/23/17 00:25 - Physical Exam Comments: 02/23/17 01:29 GENERAL: Awake, alert, and fully oriented, in no acute distress HEAD: No signs of trauma EYES: PERRLA, EOMI, sclera anicteric, conjunctiva clear ENT: Auricles normal inspection, hearing grossly normal, nares patent, oropharynx clear without exudates. Moist mucosa NECK: Normal ROM, supple, no lymphadenopathy, JVD, or masses LUNGS: (+) diffuse bilateral wheezing and rhonchi. Breath sounds equal HEART: Regular rate and rhythm, normal S1 and S2, no murmurs, rubs or gallops ABDOMEN: Soft, nontender, normoactive bowel sounds. No guarding, no rebound. No masses EXTREMITIES: Normal range of motion, no edema. No clubbing or cyanosis. No cords, erythema, or tenderness NEUROLOGICAL: Cranial nerves II through XII grossly intact. Normal speech, SKIN: Warm, Dry, normal turgor, no rashes or lesions noted. <Celina Tatum - Last Filed: 02/23/17 04:26> - Vital Signs Last Vital Signs Temp Pulse Resp BP Pulse Ox 98.7 F 97 H 22 144/92 97 02/23/17 00:25 02/23/17 00:25 02/23/17 00:25 02/23/17 00:25 02/23/17 00:25 <Kathi Spencer - Last Filed: 02/23/17 05:24> Heart Score/ECG Review - ECG Intrepretation Comment:: 02/23/17 01:53 ECG was read by Dr. Spencer Impression: Normal sinus rhythm <Celina Tatum - Last Filed: 02/23/17 04:26> ED Treatment Course - LABORATORY CBC & Chemistry Diagram: 02/23/17 01:52 02/23/17 01:52 <Celina Tatum - Last Filed: 02/23/17 04:26> - LABORATORY CBC & Chemistry Diagram: 02/23/17 01:52 02/23/17 01:52 <Kathi Spencer - Last Filed: 02/23/17 05:24> *DC/Admit/Observation/Transfer - Attestations Scribe Attestion: 02/23/17 01:34 Documentation prepared by Celina Tatum, acting as manager medical writing for Kathi Spencer MD <Celina Tatum - Last Filed: 02/23/17 04:26> - Discharge Dispostion Admit: Yes <Kathi Spencer - Last Filed: 02/23/17 05:24> Diagnosis at time of Disposition: Diarrhea in adult patient, Acute exacerbation of COPD with asthma, Opioid dependence, Bronchitis - Discharge Dispostion Condition at time of disposition: Guarded - Referrals Referrals: Manolo Jaquez [Primary Care Provider] -
[2017-02-23] MEDS ORDERED: SODIUM CHLORIDE 0.9% 500 ML INFUS.BAG IV ONE (01:16)
[2017-02-23] MEDS ORDERED: HYDROmorphone HCL CARPU-JECT 2 MG/1 ML DISP.SYRIN IVPUSH ONE ×2 (01:16→04:23)
[2017-02-23 02:02] LABS: BASOPHIL 0.3 % (0-2.0); EOSINOPHIL 0.1 % (0-4.5); MCH 26.1 pg (25.7-33.7); MCHC 32.3 g/dl (32.0-36.0); MEAN CELL VOLUME 80.8 fl (80-96); MEAN PLT VOLUME 8.1 fl (7.5-11.1); NEUTROPHILS 81.2 % (42.8-82.8); PLATELET COUNT 325 K/MM3 (134-434); RDW 18.4 % (11.6-15.6); WHITE BLOOD COUNT 13.1 K/mm3 (4.0-10.0)
[2017-02-23] MEDS ORDERED: HYDROmorphone HCL CARPU-JECT 2 MG/1 ML DISP.SYRIN ONE ×2 (02:23→04:30)
[2017-02-23 02:48] LABS: ALBUMIN 2.9 g/dl (3.4-5.0); ALK PHOS 128 U/L (45-117); ANION GAP 9 (8-16); BILIRUBIN,TOTAL 0.2 mg/dL (0.2-1.0); CALCIUM 8.5 mg/dL (8.5-10.1); CO2 31 mmol/L (21-32); CREATININE 0.6 mg/dL (0.55-1.02); GLUCOSE,RANDOM 92 mg/dL (74-106); LDH 151 U/L (84-246); SGOT/AST 22 U/L (15-37); SGPT/ALT 41 U/L (12-78); TOT PROT 6.4 g/dl (6.4-8.2)
[2017-02-23] MEDS ORDERED: ONDANSETRON 4 MG/2 ML VIAL IVPB ONE (03:25)
[2017-02-23] MEDS ORDERED: ONDANSETRON 4 MG/2 ML VIAL ONE ×2 (03:28→03:30)
[2017-02-23] MEDS ORDERED: PIPERACILLIN/TAZOB 3.375 GM/50 ML PRE-DOCKED IVPB ONE (05:03)
[2017-02-23] MEDS ORDERED: PIPERACILLIN/TAZOB 3.375 GM 50 ML IVPB ONE (05:07)
--- NOTE | 2017-02-23 06:28 | HP ---
CHIEF COMPLAINT: Cough, Chest Pain, Nausea, Vomiting, Diarrhea, Abdominal Pain PCP: Pulm: Dr. Santiago HISTORY OF PRESENT ILLNESS: This is a 51 y/o female with a past medical history of COPD (O2 dep), Asthma, HTN, DM, Hypothyroidism, Uterine Ca, Renal Insufficiencym s/p Stents, Bipolar Stage II, Depression, Chronic Back Pain. Who presents to the ED with a productive cough- yellow phlegm on ABX- Doxycycline. Patient reports chills, CP torso, leg and foot pain, with non-bilious vomiting x today. Patient reports having loose diarrhea which she attributes to her ABX use. Patient denies fever , dizziness, dysuria. ER course was notable for: (1) WBC 13.1 (2) Chest Xray- image no infiltrate, no effusion (3) EKG- NSR Recent Travel: None PAST MEDICAL HISTORY: See HPI PAST SURGICAL HISTORY: Social History: Smoking: Former Alcohol: None Drugs: Opioid Dependency Family History: Non-Contributory Allergies oxycodone [Oxycodone] Allergy (Severe, Verified 02/23/17 05:20) Nausea oxycodone HCl [From Percocet] Allergy (Severe, Verified 02/23/17 05:20) Nausea aspirin Allergy (Mild, Verified 02/23/17 05:20) blueberry [Blueberry] Allergy (Mild, Verified 02/23/17 05:20) Swelling promethazine HCl [From Phenergan] Allergy (Mild, Verified 02/23/17 05:20) promethazine Allergy (Verified 02/23/17 05:20) HOME MEDICATIONS: Home Medications Medication Instructions Recorded Acetaminophen [Tylenol .Regular 650 mg PO Q6H PRN #0 tablet 06/05/16 Strength -] Levothyroxine [Synthroid -] 25 mcg PO DAILY@0700 tablet 06/05/16 Albuterol 2.5/Ipratropium 0.5 1 amp NEB Q4HPO amp 09/17/16 [Duoneb -] Alprazolam [Xanax] 0.25 mg PO BID tablet MDD 2 09/17/16 Diltiazem [Cardizem -] 60 mg PO Q6HPO tablet 09/17/16 Magnesium Oxide [Mag-Ox -] 400 mg PO BID tablet 09/17/16 Baclofen [Lioresal -] 20 mg PO TID 10/01/16 Budesonide/Formeterol Fumarate 2 inh PO BID 11/01/16 [SYMBICORT 160/4.5mcg -] Diphenhydramine [Benadryl 12.5 25 mg PO Q4H PRN 11/01/16 MG/5 ML Oral Solution -] Eletriptan Hydrobromide [Relpax -] 40 mg PO PRN 11/01/16 Gabapentin [Neurontin -] 300 mg PO TID 11/01/16 Metoprolol Tartrate [Lopressor -] 25 mg PO TID 11/01/16 Omeprazole 40 mg PO BID 11/01/16 Roflumilast [Daliresp] 500 mcg PO DAILY 11/01/16 Zolpidem Tartrate [Ambien] 10 mg PO HS PRN MDD 1 11/01/16 Lipase/Protease/Amylase [Creon Dr 3 cap PO TIDCM capsule.dr 11/07/16 6,000 Units Capsule] Insulin Sliding Scale [Novolog 0 units SQ ACHS PRN 11/08/16 Vial Sliding Scale -] Doxepin HCl [Sinequan -] 25 mg PO HS capsule 11/20/16 Lactobacillus Acidophilus [Bacid -] 1 tab PO BID tab 11/20/16 Metoclopramide HCl [Reglan -] 10 mg PO TIDAC tablet 11/20/16 Multivitamins [Multivit ([facility] 1 tab PO DAILY tab 11/20/16 Formulary)] Ondansetron [Zofran -] 4 mg PO Q4H PRN #0 tablet 11/20/16 Zinc Oxide 1 applic TP BID tube 11/20/16 Insulin (Levemir) [Levemir Vial] 5 unit SQ DAILY #1 vial 11/21/16 Cholecalciferol (Vitamin D3) 2,000 unit PO DAILY #30 tab 11/28/16 [Vitamin D3 -] Heparin - 5,000 unit SQ TID vial 11/28/16 Albuterol Sulfate Inhaler - 2 puff IH Q4H PRN #0 inhaler 11/29/16 [Ventolin HFA Inhaler -] Prednisone 10 mg PO DAILY #15 tablet 11/29/16 Sucralfate [Carafate -] 1 gm PO QID tablet 12/16/16 Hydromorphone [Dilaudid -] 4 mg PO Q4H PRN #0 tablet MDD 24mg 12/17/16 REVIEW OF SYSTEMS CONSTITUTIONAL: chills Absent: fever, diaphoresis, generalized weakness, malaise, loss of appetite, weight change HEENT: Absent: rhinorrhea, nasal congestion, throat pain, throat swelling, difficulty swallowing, mouth swelling, ear pain, eye pain, visual changes CARDIOVASCULAR: chest pain Absent: syncope, palpitations, irregular heart rate, lightheadedness, peripheral edema RESPIRATORY: cough Absent: shortness of breath, dyspnea with exertion, orthopnea, wheezing, stridor , hemoptysis GASTROINTESTINAL: abdominal pain, nausea, vomiting, diarrhea Absent: abdominal distension, constipation, melena, hematochezia GENITOURINARY: Absent: dysuria, frequency, urgency, hesitancy, hematuria, flank pain, genital pain MUSCULOSKELETAL: bilateral leg/foot pain Absent: myalgia, arthralgia, joint swelling, back pain, neck pain SKIN: Absent: rash, itching, pallor HEMATOLOGIC/IMMUNOLOGIC: Absent: easy bleeding, easy bruising, lymphadenopathy, frequent infections ENDOCRINE: Absent: unexplained weight gain, unexplained weight loss, heat intolerance, cold intolerance NEUROLOGIC: Absent: headache, focal weakness or paresthesias, dizziness, unsteady gait, seizure, mental status changes, bladder or bowel incontinence PSYCHIATRIC: Absent: anxiety, depression, suicidal or homicidal ideation, hallucinations. PHYSICAL EXAMINATION Vital Signs - 24 hr 02/23/17 00:25 Temperature 98.7 F Pulse Rate 97 H Respiratory 22 Rate Blood Pressure 144/92 O2 Sat by Pulse 97 Oximetry (%) GENERAL: Awake, alert, and fully oriented, in no acute distress. HEAD: Normal with no signs of trauma. EYES: Pupils equal, round and reactive to light, extraocular movements intact, sclera anicteric, conjunctiva clear. No lid lag. EARS, NOSE, THROAT: Ears normal, nares patent, oropharynx clear without exudates. Dry mucous membranes. NECK: Normal range of motion, supple without lymphadenopathy, JVD, or masses. LUNGS: Coarse rhonchi + scattered wheezes, bilaterally and no crackles. No accessory muscle use. HEART: Regular rate and rhythm, normal S1 and S2 without murmur, rub or gallop. ABDOMEN: Soft, obese, nontender, not distended, normoactive bowel sounds, no guarding, no rebound, no masses. No hepatomegaly or splenomegaly. MUSCULOSKELETAL: Normal range of motion at all joints. No bony deformities or tenderness. No CVA tenderness. UPPER EXTREMITIES: 2+ pulses, warm, well-perfused. No cyanosis. No clubbing. No peripheral edema. LOWER EXTREMITIES: 2+ pulses, warm, well-perfused. No calf tenderness. No peripheral edema. NEUROLOGICAL: Cranial nerves II-XII intact. Normal speech. Gait not observed. PSYCHIATRIC: Cooperative. Good eye contact. Appropriate mood and affect. SKIN: Warm, dry, normal turgor, no rashes or lesions noted, normal capillary refill. Laboratory Results - last 24 hr 02/23/17 02/23/17 01:52 01:52 WBC 13.1 H D RBC 3.81 D Hgb 9.9 L D Hct 30.8 L D MCV 80.8 MCHC 32.3 RDW 18.4 H Plt Count 325 D MPV 8.1 Neutrophils % 81.2 D Lymphocytes % 12.3 D Monocytes % 6.1 Eosinophils % 0.1 D Basophils % 0.3 Sodium 141 Potassium 3.6 Chloride 101 Carbon Dioxide 31 Anion Gap 9 BUN 22 H D Creatinine 0.6 Creat Clearance w eGFR > 60 Random Glucose 92 D Calcium 8.5 Total Bilirubin 0.2 AST 22 D ALT 41 Alkaline Phosphatase 128 H LD Total 151 Total Protein 6.4 Albumin 2.9 L ASSESSMENT/PLAN: 51 y/o female with a PMHx of COPD O2 dep, Asthma, HTN, DM, Hypothyroidism, Uterine Ca, Renal Insufficiency, s/p Stents, Bipolar, Depression, Chronic Back Pain. Placed in Observation for Bronchitis, COPD Exacerbation, N/V, CP r/o ACS for further evaluation of their emergent condition. Problem List - Problem (1) Bronchitis Assessment/Plan: - Failed Outpatient Therapy on doxycycline - WBC 13, afebrile - Consider Levaquin - Sputum Culture - Duonebs - Appreciate Pulm Consult - Monitor vitals Code(s): J40 - BRONCHITIS, NOT SPECIFIED ACUTE OR CHRONIC (2) Chest pain Assessment/Plan: - Likely secondary to Cough vs ACS vs Gastritis - HEART Score 4 - EKG- Reviewed - Cardiac Profile- add on to todays lab-pending - Serial Enzymes x2 - Monitor vitals Code(s): R07.9 - CHEST PAIN, UNSPECIFIED (3) Diarrhea in adult patient Assessment/Plan: - Likely secondary to ABX - C- Diff- pending - Monitor BMP Code(s): R19.7 - DIARRHEA, UNSPECIFIED (4) Nausea & vomiting Assessment/Plan: - Add on Lipase, Amylase - Monitor BMP - Zofran given in ED - Continue Zofran prn - On exam: N/V resolved, patient requests breakfast tray Code(s): R11.2 - NAUSEA WITH VOMITING, UNSPECIFIED (5) Chronic respiratory failure with hypoxia Assessment/Plan: - Continue O2 - Monitor Spo2 Code(s): J96.11 - CHRONIC RESPIRATORY FAILURE WITH HYPOXIA (6) Chronic back pain Assessment/Plan: - Continue to monitor and treat with interventions accordingly - Avoid Opioids secondary to opioid dependency hx - Non-narcotic pain med prn Code(s): M54.9 - DORSALGIA, UNSPECIFIED G89.29 - OTHER CHRONIC PAIN (7) Anxiety Assessment/Plan: - Continue home med Code(s): F41.9 - ANXIETY DISORDER, UNSPECIFIED (8) HTN (hypertension) Assessment/Plan: - Monitor BP - Continue home med Code(s): I10 - ESSENTIAL (PRIMARY) HYPERTENSION Qualifiers: (9) Paroxysmal atrial fibrillation Assessment/Plan: - EKG- NSR no ST or TWI Code(s): I48.0 - PAROXYSMAL ATRIAL FIBRILLATION (10) GERD (gastroesophageal reflux disease) Code(s): K21.9 - GASTRO-ESOPHAGEAL REFLUX DISEASE WITHOUT ESOPHAGITIS (11) Hyperlipidemia Assessment/Plan: - Continue home med Code(s): E78.5 - HYPERLIPIDEMIA, UNSPECIFIED (12) Bipolar 2 disorder Assessment/Plan: - Continue home med Code(s): F31.81 - BIPOLAR II DISORDER (13) Depression with anxiety Assessment/Plan: - Continue home med Code(s): F41.8 - OTHER SPECIFIED ANXIETY DISORDERS (14) Drug abuse and dependence Assessment/Plan: - Avoid opioid use - f/u with Pain MGMT in outpatient Code(s): F19.20 - OTHER PSYCHOACTIVE SUBSTANCE DEPENDENCE, UNCOMPLICATED (15) Opioid dependence Assessment/Plan: - See Above Code(s): F11.20 - OPIOID DEPENDENCE, UNCOMPLICATED (16) Chronic pain Assessment/Plan: - Continue to monitor and treat with intervention accordingly Code(s): G89.29 - OTHER CHRONIC PAIN (17) DVT prophylaxis Assessment/Plan: - OOB - SCD - Heparin SQ Code(s): QAC7697 - Visit type - Emergency Visit Emergency Visit: Yes ED Registration Date: 02/23/17 Care time: The patient presented to the Emergency Department on the above date and was hospitalized for further evaluation of their emergent condition. - New Patient This patient is new to me today: Yes Date on this admission: 02/23/17 - Critical Care Critical Care patient: No
[2017-02-23 07:17] LABS: ARTERIAL BLD GAS O2 SATURATION 97.3 % (90-98.9); ARTERIAL BLOOD GAS BASE EXCESS 3.5 meq/l (-2-2); ARTERIAL BLOOD GAS PO2 90.4 mmHg (80-100)
[2017-02-23 07:29] LABS: ALLENS TEST POSITIVE; ART PUNCT SITE RIGHT RADIAL; ARTERIAL BLOOD GAS pH 7.41 (7.35-7.45); LPM/O2% 2 LPM; PT. ON O2? YES; TYPE OF O2 N/C
[2017-02-23] MEDS ORDERED: ELETRIPTAN HYDROBROMIDE 40 MG TABLET PO PRN (08:15)
[2017-02-23] MEDS ORDERED: HYDROmorphone HCL CARPU-JECT 1 MG/1 ML DISP.SYRIN IVPUSH PRN ×2 (08:17→16:07)
[2017-02-23] MEDS ORDERED: HYDROmorphone HCL CARPU-JECT 1 MG/1 ML DISP.SYRIN ONE ×2 (08:38→12:10)
[2017-02-23] MEDS ORDERED: LEVOTHYROXINE NA 25 MCG TABLET (FP) ONE (08:39)
[2017-02-23] MEDS: LEVOTHYROXINE NA 25 MCG TABLET (FP) PO SCH (09:00)
[2017-02-23 09:21] LABS: AMYLASE 55 U/L (25-115)
[2017-02-23 09:22] LABS: TROPONIN I < 0.02 ng/ml (0.00-0.05)
[2017-02-23] MEDS: ROFLUMILAST 500 MCG TABLET PO SCH (10:03)
[2017-02-23] MEDS: MULTIVITAMINS (DAILY MVI) TABLET (FP) PO SCH (10:03)
[2017-02-23] MEDS: BUDESONIDE/FORMETEROL FUMARATE 160/4.5 mcg INHALER IH SCH ×2 (10:30→22:11)
[2017-02-23] MEDS: ONDANSETRON 4 MG/2 ML VIAL IVPB PRN ×2 (10:30→18:46)
[2017-02-23] MEDS: ALBUTEROL SO4 2.5/IPRATROPIUM 0.5 INH SOL 3 ML VIAL.NEB. NEB PRN ×2 (10:34→13:58)
[2017-02-23] MEDS ORDERED: HYDROmorphone HCL CARPU-JECT 1 MG/1 ML DISP.SYRIN IVPUSH ONE (11:51)
[2017-02-23] MEDS ORDERED: ALBUTEROL SO4 2.5/IPRATROPIUM 0.5 INH SOL 3 ML VIAL.NEB. NEB SCH (12:00)
[2017-02-23] MEDS ORDERED: methylPREDNISolone NA SUCC 40 MG/1 ML VIAL ONE (12:55)
[2017-02-23] MEDS: GABAPENTIN 300 MG CAPSULE (FP) PO SCH ×2 (13:00→21:18)
[2017-02-23] MEDS: METOPROLOL TARTRATE 25 MG TABLET (FP) PO SCH ×2 (13:00→21:18)
[2017-02-23] MEDS ORDERED: methylPREDNISolone NA SUCC 40 MG/1 ML VIAL IVPB ONE (13:00)
--- NOTE | 2017-02-23 13:46 | CONSULT ---
Consult Consult Specialty:: PULM/CCM Referred by:: IRINEO Reason for Consultation:: SOB - History of Present Illness Chief Complaint: SOB x 1 week History of Present Illness: 51 F, well known to me from multiple previous admissions. Prolonged, severe illness `August 2016. Respiratory failure. Extensive SQ emphysema due to PTX. Required Trachesotomy. Required emergent cecostomy. Additional history of O2 dependent COPD, Asthma, HTN, DM, Hypothyroidism, Uterine Ca, Renal Insufficiency, PCI, Bipolar, Depression, and Chronic Back Pain with extensive previous spinal surgery. Increased bronchitis symptoms for over 1 week. 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 I episode of hemoptysis a few days ago. CXR: clear / no acute infiltrates. (+) persistent diarrhea. - History Source History Provided By: Patient Limitations to Obtaining History: No Limitations - Past Medical History Cardio/Vascular: Yes: AFIB (Paroxysmal), HTN, Hyperlipdemia Pulmonary: Yes: Asthma, COPD, O2 Dependent Renal/: Yes: Cancer (Uterine), Other ([place] in the past) Infectious Disease: Yes: C-Diff (june 2014), Other (Osteomyelitis of thoracic spine) Psych: Yes: Anxiety, Bipolar, Depression Musculoskeletal: Yes: Chronic low back pain Additional Medical History: Frequent c/o abdominal pain-extensive w/u in the past negative. Presumed adhesions from prior surgeries. - Past Surgical History Past Surgical History: Yes: Hysterectomy (with BSO) - Alcohol/Substance Use Hx Alcohol Use: No - Smoking History Smoking history: Former smoker Have you smoked in the past 12 months: No Aproximately how many cigarettes per day: 3 If you are a former smoker, when did you quit?: 10/11/14 - Social History Usual Living Arrangement: With Significant Other 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) History of Recent Travel: No Home Medications - Allergies Allergies/Adverse Reactions: Allergies Allergy/AdvReac Type Severity Reaction Status Date / Time oxycodone [Oxycodone] Allergy Severe Nausea Verified 02/23/17 05:20 oxycodone HCl [From Percocet] Allergy Severe Nausea Verified 02/23/17 05:20 aspirin Allergy Mild Verified 02/23/17 05:20 blueberry [Blueberry] Allergy Mild Swelling Verified 02/23/17 05:20 fentanyl Allergy Verified 02/23/17 13:40 - Home Medications Home Medications: Ambulatory Orders Acetaminophen [Tylenol .Regular Strength -] 650 mg PO Q6H PRN #0 tablet Levothyroxine [Synthroid -] 25 mcg PO DAILY@0700 tablet 06/05/16 Albuterol 2.5/Ipratropium 0.5 [Duoneb -] 1 amp NEB Q4HPO amp 09/17/16 Alprazolam [Xanax] 0.25 mg PO BID tablet MDD 2 09/17/16 Diltiazem [Cardizem -] 60 mg PO Q6HPO tablet 09/17/16 Magnesium Oxide [Mag-Ox -] 400 mg PO BID tablet 09/17/16 Baclofen [Lioresal -] 20 mg PO TID 10/01/16 Budesonide/Formeterol Fumarate [SYMBICORT 160/4.5mcg -] 2 inh PO BID 11/01/16 Diphenhydramine [Benadryl 12.5 MG/5 ML Oral Solution -] 25 mg PO Q4H PRN Eletriptan Hydrobromide [Relpax -] 40 mg PO PRN 11/01/16 Gabapentin [Neurontin -] 300 mg PO TID 11/01/16 Metoprolol Tartrate [Lopressor -] 25 mg PO TID 11/01/16 Omeprazole 40 mg PO BID 11/01/16 Roflumilast [Daliresp] 500 mcg PO DAILY 11/01/16 Zolpidem Tartrate [Ambien] 10 mg PO HS PRN MDD 1 11/01/16 Lipase/Protease/Amylase [Eamon Dr 6,000 Units Capsule] 3 cap PO TIDCM capsule. 11/07/16 Insulin Sliding Scale [Novolog Vial Sliding Scale -] 0 units SQ ACHS PRN Doxepin HCl [Sinequan -] 25 mg PO HS capsule 11/20/16 Lactobacillus Acidophilus [Bacid -] 1 tab PO BID tab 11/20/16 Metoclopramide HCl [Reglan -] 10 mg PO TIDAC tablet 11/20/16 Multivitamins [Multivit ([facility] Formul[facility])] 1 tab PO DAILY tab 11/20/16 Ondansetron [Zofran -] 4 mg PO Q4H PRN #0 tablet 11/20/16 Zinc Oxide 1 applic TP BID tube 11/20/16 Insulin (Levemir) [Levemir Vial] 5 unit SQ DAILY #1 vial 11/21/16 Cholecalciferol (Vitamin D3) [Vitamin D3 -] 2,000 unit PO DAILY #30 tab Heparin - 5,000 unit SQ TID vial 11/28/16 Albuterol Sulfate Inhaler - [Ventolin HFA Inhaler -] 2 puff IH Q4H PRN #0 inhaler 11/29/16 Prednisone 10 mg PO DAILY #15 tablet 11/29/16 Sucralfate [Carafate -] 1 gm PO QID tablet 12/16/16 Hydromorphone [Dilaudid -] 4 mg PO Q4H PRN #0 tablet MDD 24mg 12/17/16 Family Disease History - Family Disease History Family Disease History: Diabetes: Mother (heart surgery), Heart Disease: Mother , CA: Father (leukemia) Review of Systems - Review of Systems Constitutional: reports: Fever, Malaise, Weakness. denies: Chills, Night Sweats , Unintentional Wgt. Loss Eyes: reports: No Symptoms HENT: reports: No Symptoms Neck: reports: Decreased ROM, Tenderness Cardiovascular: reports: Chest Pain, Palpitations, Shortness of Breath. denies : Edema Respiratory: reports: Cough, Hemoptysis, SOB, SOB on Exertion, Wheezing Gastrointestinal: reports: No Symptoms Genitourinary: reports: No Symptoms Breasts: reports: No Symptoms Reported Musculoskeletal: reports: Back Pain, Joint Pain, Muscle Pain, Muscle Cramps Integumentary: reports: No Symptoms Neurological: reports: No Symptoms Endocrine: reports: No Symptoms Hematology/Lymphatic: reports: No Symptoms Psychiatric: reports: No Symptoms Physical Exam Vital Signs: Vital Signs Temperature 98.6 F 02/23/17 07:38 Pulse Rate 109 H 02/23/17 12:19 Respiratory Rate 24 02/23/17 12:19 Blood Pressure 128/83 02/23/17 12:19 O2 Sat by Pulse Oximetry (%) 95 02/23/17 12:19 Constitutional: Yes: Anxious, Mild Distress Eyes: Yes: Conjunctiva Clear, EOM Intact HENT: Yes: Atraumatic, Normocephalic Neck: Yes: Trachea Midline, Other (decannulated) Cardiovascular: Yes: Pulse Irregular Respiratory: Yes: Cough, Diminished, On Nasal O2, Rales, Rhonchi, SOB, Tachypnea , Wheezes. No: Accessory Muscle Use, Stridor Gastrointestinal: Yes: Normal Bowel Sounds, Soft ...Rectal Exam: Yes: Deferred Renal/: Yes: WNL Musculoskeletal: Yes: WNL Extremities: Yes: WNL Edema: No Peripheral Pulses WNL: Yes Integumentary: Yes: WNL Neurological: Yes: Alert, Oriented ...Motor Strength: WNL Psychiatric: Yes: Alert, Oriented Imaging - Results Chest X-ray: Report Reviewed, Image Reviewed Problem List - Problems (1) Acute exacerbation of COPD with asthma Code(s): J44.1 - CHRONIC OBSTRUCTIVE PULMONARY DISEASE W (ACUTE) EXACERBATION J45.901 - UNSPECIFIED ASTHMA WITH (ACUTE) EXACERBATION (2) Bronchitis Code(s): J40 - BRONCHITIS, NOT SPECIFIED ACUTE OR CHRONIC (3) Diarrhea in adult patient Code(s): R19.7 - DIARRHEA, UNSPECIFIED (4) Anxiety Code(s): F41.9 - ANXIETY DISORDER, UNSPECIFIED (5) Bipolar 2 disorder Code(s): F31.81 - BIPOLAR II DISORDER (6) COPD (chronic obstructive pulmonary disease) case management patient Code(s): KTU5461 - (7) Chronic back pain Code(s): M54.9 - DORSALGIA, UNSPECIFIED G89.29 - OTHER CHRONIC PAIN (8) Depression with anxiety Code(s): F41.8 - OTHER SPECIFIED ANXIETY DISORDERS (9) Gastritis Code(s): K29.70 - GASTRITIS, UNSPECIFIED, WITHOUT BLEEDING (10) HTN (hypertension) Code(s): I10 - ESSENTIAL (PRIMARY) HYPERTENSION Qualifiers: (11) Hyperlipidemia Code(s): E78.5 - HYPERLIPIDEMIA, UNSPECIFIED (12) Opioid dependence Code(s): F11.20 - OPIOID DEPENDENCE, UNCOMPLICATED (13) Paroxysmal atrial fibrillation Code(s): I48.0 - PAROXYSMAL ATRIAL FIBRILLATION (14) Chronic pain Code(s): G89.29 - OTHER CHRONIC PAIN (15) Nausea & vomiting Code(s): R11.2 - NAUSEA WITH VOMITING, UNSPECIFIED (16) Vomiting Code(s): R11.10 - VOMITING, UNSPECIFIED Qualifiers: Vomiting type: unspecified Vomiting Intractability: unspecified Nausea presence: with nausea Qualified Code(s): R11.2 - Nausea with vomiting , unspecified (17) Afib Code(s): I48.91 - UNSPECIFIED ATRIAL FIBRILLATION (18) Anemia Code(s): D64.9 - ANEMIA, UNSPECIFIED (19) GERD (gastroesophageal reflux disease) Code(s): K21.9 - GASTRO-ESOPHAGEAL REFLUX DISEASE WITHOUT ESOPHAGITIS (20) Hemoptysis Code(s): R04.2 - HEMOPTYSIS (21) Leukocytosis Code(s): D72.829 - ELEVATED WHITE BLOOD CELL COUNT, UNSPECIFIED Qualifiers: Leukocytosis type: unspecified Qualified Code(s): D72.829 - Elevated white blood cell count, unspecified (22) Mood disorder Code(s): F39 - UNSPECIFIED MOOD [AFFECTIVE] DISORDER (23) Neuropathy Code(s): G62.9 - POLYNEUROPATHY, UNSPECIFIED Assessment/Plan Medrol TID BD TX Would monitor off ABX for now -> Suspect viral illness. O2 as needed Symbicort Daliresp Will likely need inpatient treatment Will follow Thank you. Dr Castaneda
[2017-02-23] MEDS ORDERED: BACLOFEN 10 MG TABLET (FP) ONE (13:59)
[2017-02-23] MEDS ORDERED: ALBUTEROL SO4 2.5/IPRATROPIUM 0.5 INH SOL 3 ML VIAL.NEB. NEB ONE (14:00)
[2017-02-23] MEDS: BACLOFEN 10 MG TABLET (FP) PO SCH ×2 (14:02→21:18)
[2017-02-23] MEDS: methylPREDNISolone NA SUCC 125 MG/2 ML VIAL IVPB SCH ×2 (14:03→21:17)
[2017-02-23] MEDS: HYDROmorphone HCL CARPU-JECT 1 MG/1 ML DISP.SYRIN IVPB PRN ×2 (17:03→20:57)
--- NOTE | 2017-02-23 17:17 | PN ---
Physical Exam: SUBJECTIVE: Patient seen and examined. States she is having alot of pain. Asking for pain meds, states her breathing is labored. OBJECTIVE: Vital Signs Period Temp Pulse Resp BP Sys/Dan Pulse Ox Last 24 Hr 98.4 F-98.6 F 92-115 20-24 122-140/74-83 95-99 GENERAL: The patient is awake, alert, and fully oriented, in no acute distress. HEAD: Normal with no signs of trauma. EYES: PERRL, extraocular movements intact, sclera anicteric, conjunctiva clear. No ptosis. ENT: Ears normal, nares patent, oropharynx clear without exudates, moist mucous membranes. NECK: Trachea midline, full range of motion, supple. LUNGS: expiratory wheezing, rhonchi on anterior lungs HEART: Regular rate and rhythm, S1, S2 without murmur, rub or gallop. ABDOMEN: abdominal pain, nausea, vomiting, diarrhea EXTREMITIES: well-perfused, no edema. NEUROLOGICAL: Normal speech, gait not observed. PSYCH: Normal mood, normal affect. SKIN: Warm, dry, normal turgor, no rashes or lesions noted Laboratory Results - last 24 hr 02/23/17 07:00 Puncture Site Right radial ABG pH 7.41 ABG pCO2 at Pt Temp 44.8 ABG pO2 at Pt Temp 90.4 D ABG HCO3 28.0 H ABG O2 Sat (Measured) 97.3 ABG O2 Content 12.8 L ABG Base Excess 3.5 H Francis Test Positive O2 Delivery Device N/c Oxygen Flow Rate 2 lpm PEEP 0.0 Active Medications Generic Name Dose Route Start Last Admin Trade Name Freq PRN Reason Stop Dose Admin Albuterol Sulfate 1 amp 02/23/17 18:00 Ventolin 0.083% Nebulizer Soln - NEB QIDR EMMY Albuterol/Ipratropium 1 amp 02/23/17 10:22 02/23/17 13:58 Duoneb - NEB 1 amp Q4H PRN Administration SHORTNESS OF BREATH Baclofen 20 mg 02/23/17 14:00 02/23/17 14:02 Lioresal - PO 20 mg TID EMMY Administration Budesonide/Formoterol Fumarate 2 puff 02/23/17 10:00 02/23/17 10:30 Symbicort 160/4.5mcg - IH 2 puff BID EMMY Administration Doxepin HCl 25 mg 02/23/17 22:00 Sinequan - PO HS EMMY Eletriptan 40 mg 02/23/17 08:15 Relpax - PO PRN PRN Gabapentin 300 mg 02/23/17 14:00 02/23/17 13:00 Neurontin - PO 300 mg TID EMMY Administration Hydromorphone HCl 1 mg 02/23/17 16:33 02/23/17 17:03 Dilaudid Injection - IVPB 1 mg Q4H PRN Administration PAIN Levothyroxine Sodium 25 mcg 02/23/17 10:00 02/23/17 09:00 Synthroid - PO 25 mcg DAILY@0700 EMMY Administration Methylprednisolone Sodium Succinate 80 mg 02/23/17 14:00 02/23/17 14:03 Solu-Medrol - IVPB Not Given TID EMMY Metoprolol Tartrate 25 mg 02/23/17 14:00 02/23/17 13:00 Lopressor - PO 25 mg TID EMMY Administration Multivitamins/Minerals/Vitamin C 1 tab 02/23/17 10:00 02/23/17 10:03 Tab-A-Vit - PO 1 tab DAILY EMMY Administration Ondansetron HCl 4 mg 02/23/17 08:18 02/23/17 10:30 Zofran Injection IVPB 4 mg Q6H PRN Administration NAUSEA Roflumilast 500 mcg 02/23/17 10:00 02/23/17 10:03 Daliresp - PO 500 mcg DAILY EMMY Administration ASSESSMENT/PLAN: Patient is a 51 year old female with a past medical history of proximal atrial fib, hypertension, diabetes, COPD (home oxygen dependent), asthma, tracheostomy , uterine cancer, anxiety, depression, bipolar disorder. She presents to the ED on 02/23/2017 with nausea, diarrhea, productive cough, and left sided body pain since yesterday. She states she is currently on doxycycline, but reports having left lower sided body aches and diarrhea since taking this medication. She reports her cough has been persistent and productive of yellow sputum. She states the cough keeps her up at night. She was admitted to [place] with c/o of abdominal pain, diarrhea and acute COPD exacerbation. Imaging: Chest Xray 02/23/2017 - lungs better aerated - increased markings diminished GI: Abdominal pain with Diarrhea - likely secondary to antibiotics Assessment/Plan: Was on outpatient antibiotics of Doxycycline Rule out infectious vs. inflammatory cause On protonix PO, Zofran PRN Stool for c diff negative, will start on Immodium and assess for improvement Currently tolerating her diet, denies any nausea on exam Monitor and if worsening symptoms will consult GI Pulmonary: COPD/Asthma - acute on chronic Assessment/Plan: Patient with expiratory scattered wheezes, on 2-3 liters of nasal cannula Has trach site, c/d/i, maintain O2 sat >88% On Solumedrol 80mg IV TID, taper as tolerated Albuterol PRN, Symbicort Monitor off antibiotics Pulmonary following Psyche Bipolar/anxiety/depression Assessment/Plan: continue psyche home meds Endocrine: Diabetes mellitus - chronic Assessment/Plan: Novolog sliding scale Monitor BGMs on Solumedrol Cardiology: Proxy Atrial Fib Currently in Sinus rhythm On lopressor PO, Cardizem Taper Medrol tomorrow if stable/improved FEN Fluid: Tolerating PO Electrolytes: within normal limits Nutrition: Diabetic diet Prophylaxis DVT: SCD, heparin SQ GI: Protonix Disposition: Discharge back to retirement when stable. Full Code. Visit type - Emergency Visit Emergency Visit: Yes ED Registration Date: 02/24/17 Care time: The patient presented to the Emergency Department on the above date and was hospitalized for further evaluation of their emergent condition. - New Patient This patient is new to me today: No - Critical Care Critical Care patient: No - Discharge Referral Referred to [facility] No
[2017-02-23] MEDS: ALBUTEROL SO4 0.083% IH SOL 2.5 MG/3 ML VIAL.NEB. NEB SCH ×2 (17:24→23:31)
[2017-02-23] MEDS ORDERED: ACETAMINOPHEN 325 MG TABLET (FP) PO PRN (17:32)
[2017-02-23] MEDS ORDERED: HYDROmorphone HCL 2 MG TABLET PO PRN (17:32)
[2017-02-23] MEDS ORDERED: diphenhydrAMINE HCL 12.5 MG/5 ML UNIT-DOSE CUPS PO PRN (17:32)
[2017-02-23] MEDS: dilTIAZem HCL 30 MG TABLET (FP) PO SCH (18:00)
[2017-02-23 18:27] LABS: TROPONIN I < 0.02 ng/ml (0.00-0.05)
[2017-02-23] MEDS ORDERED: ALPRAZolam 0.25 MG TABLET PO ONE (18:30)
[2017-02-23] MEDS ORDERED: PT OWN MED DRAWER 7, Y5N ONE (21:10)
[2017-02-23] MEDS: HEPARIN NA (PORCINE) 5,000 UNITS/ML 1ML VIAL SQ SCH (21:17)
[2017-02-23] MEDS: ALPRAZolam 0.25 MG TABLET PO SCH (21:18)
[2017-02-23] MEDS: ZOLPIDEM TARTRATE 5 MG TABLET PO PRN (21:18)
[2017-02-23] MEDS: MAGNESIUM OXIDE 400 MG TABLET (FP) PO SCH (21:18)
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
[2017-02-23] MEDS ORDERED: BACLOFEN 10 MG TABLET (FP) PO SCH (22:00)
[2017-02-23] MEDS: DOXEPIN HCL 25 MG CAPSULE PO SCH (22:48)
[2017-02-24] MEDS: HYDROmorphone HCL CARPU-JECT 1 MG/1 ML DISP.SYRIN IVPB PRN ×5 (01:02→20:13)
[2017-02-24] MEDS ORDERED: PT OWN MED DRAWER 7, Y5N ONE ×7 (05:45→21:08)
[2017-02-24] MEDS: ALBUTEROL SO4 0.083% IH SOL 2.5 MG/3 ML VIAL.NEB. NEB SCH ×4 (06:05→23:34)
[2017-02-24] MEDS: BACLOFEN 10 MG TABLET (FP) PO SCH ×3 (06:26→22:44)
[2017-02-24] MEDS: methylPREDNISolone NA SUCC 125 MG/2 ML VIAL IVPB SCH ×3 (06:26→22:43)
[2017-02-24] MEDS: dilTIAZem HCL 30 MG TABLET (FP) PO SCH ×4 (06:26→18:34)
[2017-02-24] MEDS: LEVOTHYROXINE NA 25 MCG TABLET (FP) PO SCH (06:27)
[2017-02-24] MEDS: HEPARIN NA (PORCINE) 5,000 UNITS/ML 1ML VIAL SQ SCH ×3 (06:27→22:43)
[2017-02-24] MEDS: GABAPENTIN 300 MG CAPSULE (FP) PO SCH ×3 (06:27→22:44)
[2017-02-24] MEDS: METOPROLOL TARTRATE 25 MG TABLET (FP) PO SCH ×3 (06:27→22:44)
[2017-02-24] MEDS ORDERED: INSULIN (NOVOLOG) ASPART 100 UNITS/ML 10ML VIAL ONE ×2 (07:36→23:01)
[2017-02-24 07:42] LABS: BASOPHIL 0.1 % (0-2.0); MCH 26.5 pg (25.7-33.7); MCHC 32.4 g/dl (32.0-36.0); MEAN CELL VOLUME 81.6 fl (80-96); MEAN PLT VOLUME 8.5 fl (7.5-11.1); NEUTROPHILS 82.2 % (42.8-82.8); PLATELET COUNT 245 K/MM3 (134-434); RDW 18.3 % (11.6-15.6); WHITE BLOOD COUNT 7.3 K/mm3 (4.0-10.0)
[2017-02-24 07:55] LABS: CALCIUM 8.7 mg/dL (8.5-10.1); CREATININE 0.5 mg/dL (0.55-1.02)
[2017-02-24] MEDS: ONDANSETRON 4 MG/2 ML VIAL IVPB PRN (07:58)
[2017-02-24] MEDS: ALPRAZolam 0.25 MG TABLET PO SCH ×2 (09:09→22:44)
[2017-02-24] MEDS: MULTIVITAMINS (DAILY MVI) TABLET (FP) PO SCH (09:09)
[2017-02-24] MEDS: ROFLUMILAST 500 MCG TABLET PO SCH (09:09)
[2017-02-24] MEDS: MAGNESIUM OXIDE 400 MG TABLET (FP) PO SCH ×2 (09:09→22:44)
[2017-02-24] MEDS: CHOLECALCIFEROL (VITAMIN D3) 1,000 UNIT TABLET (FP) PO SCH (09:09)
[2017-02-24] MEDS: BUDESONIDE/FORMETEROL FUMARATE 160/4.5 mcg INHALER IH SCH ×2 (09:10→22:45)
[2017-02-24] MEDS ORDERED: INSULIN DETEMIR 100 UNITS/ML MDV SQ SCH (10:00)
[2017-02-24] MEDS ORDERED: METOCLOPRAMIDE HCL 10 MG TABLET (FP) PO SCH (11:00)
[2017-02-24] MEDS: INSULIN SLIDING SCALE (NOVOLOG) 1 VIAL SQ SCH ×3 (11:12→22:56)
[2017-02-24] MEDS: ZINC OXIDE 20% TOPICAL OINTMENT 30 GM TUBE TP SCH ×2 (12:18→22:45)
[2017-02-24] MEDS: PANTOPRAZOLE 40 MG TABLET (FP) PO SCH (12:19)
[2017-02-24] MEDS: LOPERAMIDE HCL 2 MG CAPSULE PO PRN ×2 (12:19→18:34)
--- NOTE | 2017-02-24 12:25 | PN ---
Progress Note (short form) - Note Progress Note: Breathing mildly improved compared to yesterday. Still with congested cough. (+) diarrhea Intake & Output 02/21/17 02/22/17 02/23/17 02/24/17 23:59 23:59 23:59 23:59 Intake Total 700 470 Balance 700 470 Weight 133 lb 0.007 oz Last Vital Signs Temp Pulse Resp BP Pulse Ox 98.5 F 81 18 129/83 98 02/24/17 06:00 02/24/17 06:00 02/24/17 06:00 02/24/17 06:00 02/24/17 00:00 Active Medications Acetaminophen (Tylenol -) 650 mg PO Q6H PRN PRN Reason: PAIN Albuterol Sulfate (Ventolin 0.083% Nebulizer Soln -) 1 amp NEB QIDR [facility] Last Admin: 02/24/17 12:00 Dose: 1 amp Albuterol/Ipratropium (Duoneb -) 1 amp NEB Q4H PRN PRN Reason: SHORTNESS OF BREATH Last Admin: 02/23/17 13:58 Dose: 1 amp Alprazolam (Xanax -) 0.25 mg PO BID [facility] Last Admin: 02/24/17 09:09 Dose: 0.25 mg Baclofen (Lioresal -) 20 mg PO TID [facility] Last Admin: 02/24/17 06:26 Dose: 20 mg Budesonide/Formoterol Fumarate (Symbicort 160/4.5mcg -) 2 puff IH BID [facility] Last Admin: 02/24/17 09:10 Dose: 2 puff Cholecalciferol (Vitamin D3 -) 2,000 unit PO DAILY [facility] Last Admin: 02/24/17 09:09 Dose: 2,000 unit Diltiazem HCl (Cardizem -) 60 mg PO Q6HPO [facility] Last Admin: 02/24/17 06:26 Dose: 60 mg Diphenhydramine HCl (Benadryl Oral Solution -) 25 mg PO Q4H PRN PRN Reason: FOR ITCHING Doxepin HCl (Sinequan -) 25 mg PO HS [facility] Last Admin: 02/23/17 22:48 Dose: 25 mg Eletriptan (Relpax -) 40 mg PO PRN PRN Eletriptan (Relpax -) 40 mg PO Q6H PRN PRN Reason: HEADACHE Gabapentin (Neurontin -) 300 mg PO TID [facility] Last Admin: 02/24/17 06:27 Dose: 300 mg Heparin Sodium (Porcine) (Heparin -) 5,000 unit SQ TID [facility] Last Admin: 02/24/17 06:27 Dose: 5,000 unit Hydromorphone HCl (Dilaudid Injection -) 1 mg IVPB Q4H PRN PRN Reason: PAIN Last Admin: 02/24/17 10:15 Dose: 1 mg Insulin Aspart (Novolog Vial Sliding Scale -) 1 vial SQ ACHS [facility] PRN Reason: Protocol Last Admin: 02/24/17 11:12 Dose: Not Given Levothyroxine Sodium (Synthroid -) 25 mcg PO DAILY@0700 [facility] Last Admin: 02/24/17 06:27 Dose: 25 mcg Loperamide HCl (Imodium -) 4 mg PO Q6H PRN PRN Reason: DIARRHEA Magnesium Oxide (Mag-Ox -) 400 mg PO BID [facility] Last Admin: 02/24/17 09:09 Dose: 400 mg Methylprednisolone Sodium Succinate (Solu-Medrol -) 80 mg IVPB TID [facility] Last Admin: 02/24/17 06:26 Dose: 80 mg Metoprolol Tartrate (Lopressor -) 25 mg PO TID [facility] Last Admin: 02/24/17 06:27 Dose: 25 mg Multi-Ingredient Ointment (Zinc Oxide) 1 applic TP BID [facility] Multivitamins/Minerals/Vitamin C (Tab-A-Vit -) 1 tab PO DAILY [facility] Last Admin: 02/24/17 09:09 Dose: 1 tab Ondansetron HCl (Zofran Injection) 4 mg IVPB Q6H PRN PRN Reason: NAUSEA Last Admin: 02/24/17 07:58 Dose: 4 mg Pancrelipase (Creon Dr 6,000 Units Capsule) 3 cap PO TIDCM [facility] Pantoprazole Sodium (Protonix -) 40 mg PO DAILY [facility] Roflumilast (Daliresp -) 500 mcg PO DAILY [facility] Last Admin: 02/24/17 09:09 Dose: 500 mcg Sucralfate (Carafate -) 1 gm PO QID [facility] Zolpidem Tartrate (Ambien -) 10 mg PO HS PRN PRN Reason: INSOMNIA Last Admin: 02/23/17 21:18 Dose: 10 mg Constitutional: Yes: Anxious, NAD Eyes: Yes: Conjunctiva Clear, EOM Intact HENT: Yes: Atraumatic, Normocephalic Neck: Yes: Trachea Midline, Other (decannulated) Cardiovascular: Yes: Pulse Irregular Respiratory: Yes: Cough, Diminished, On Nasal O2, Rhonchi, SOB, Wheezes. No: Accessory Muscle Use, Stridor Gastrointestinal: Yes: Normal Bowel Sounds, Soft ...Rectal Exam: Yes: Deferred Renal/: Yes: WNL Musculoskeletal: Yes: WNL Extremities: Yes: WNL Edema: No Peripheral Pulses WNL: Yes Integumentary: Yes: WNL Neurological: Yes: Alert, Oriented ...Motor Strength: WNL Psychiatric: Yes: Alert, Anxious Laboratory Results - last 24 hr 02/23/17 02/23/17 02/23/17 17:36 18:45 23:30 WBC RBC Hgb Hct MCV MCHC RDW Plt Count MPV Neutrophils % Lymphocytes % Monocytes % Eosinophils % Basophils % Sodium Potassium Chloride Carbon Dioxide Anion Gap BUN Creatinine POC Glucometer 172 Random Glucose Calcium Creatine Kinase 40 Cancelled Troponin I < 0.02 Cancelled 02/24/17 02/24/17 02/24/17 06:14 06:35 06:35 WBC 7.3 D RBC 3.89 Hgb 10.3 L Hct 31.7 L MCV 81.6 MCHC 32.4 RDW 18.3 H Plt Count 245 D MPV 8.5 Neutrophils % 82.2 Lymphocytes % 14.3 Monocytes % 3.4 L Eosinophils % 0.0 D Basophils % 0.1 Sodium 140 Potassium 3.7 Chloride 98 Carbon Dioxide 32 Anion Gap 10 BUN 12 D Creatinine 0.5 L POC Glucometer 230 Random Glucose 124 H D Calcium 8.7 Creatine Kinase Troponin I 02/24/17 11:30 WBC RBC Hgb Hct MCV MCHC RDW Plt Count MPV Neutrophils % Lymphocytes % Monocytes % Eosinophils % Basophils % Sodium Potassium Chloride Carbon Dioxide Anion Gap BUN Creatinine POC Glucometer 149 Random Glucose Calcium Creatine Kinase Troponin I Problem List - Problems (1) Acute exacerbation of COPD with asthma Code(s): J44.1 - CHRONIC OBSTRUCTIVE PULMONARY DISEASE W (ACUTE) EXACERBATION J45.901 - UNSPECIFIED ASTHMA WITH (ACUTE) EXACERBATION (2) Bronchitis Code(s): J40 - BRONCHITIS, NOT SPECIFIED ACUTE OR CHRONIC (3) Diarrhea in adult patient Code(s): R19.7 - DIARRHEA, UNSPECIFIED (4) Anxiety Code(s): F41.9 - ANXIETY DISORDER, UNSPECIFIED (5) Bipolar 2 disorder Code(s): F31.81 - BIPOLAR II DISORDER (6) COPD (chronic obstructive pulmonary disease) case management patient Code(s): [id number] - (7) Chronic back pain Code(s): M54.9 - DORSALGIA, UNSPECIFIED G89.29 - OTHER CHRONIC PAIN (8) Depression with anxiety Code(s): F41.8 - OTHER SPECIFIED ANXIETY DISORDERS (9) Gastritis Code(s): K29.70 - GASTRITIS, UNSPECIFIED, WITHOUT BLEEDING (10) HTN (hypertension) Code(s): I10 - ESSENTIAL (PRIMARY) HYPERTENSION Qualifiers: (11) Hyperlipidemia Code(s): E78.5 - HYPERLIPIDEMIA, UNSPECIFIED (12) Opioid dependence Code(s): F11.20 - OPIOID DEPENDENCE, UNCOMPLICATED (13) Paroxysmal atrial fibrillation Code(s): I48.0 - PAROXYSMAL ATRIAL FIBRILLATION (14) Chronic pain Code(s): G89.29 - OTHER CHRONIC PAIN (15) Nausea & vomiting Code(s): R11.2 - NAUSEA WITH VOMITING, UNSPECIFIED (16) Vomiting Code(s): R11.10 - VOMITING, UNSPECIFIED Qualifiers: Vomiting type: unspecified Vomiting Intractability: unspecified Nausea presence: with nausea Qualified Code(s): R11.2 - Nausea with vomiting , unspecified (17) Afib Code(s): I48.91 - UNSPECIFIED ATRIAL FIBRILLATION (18) Anemia Code(s): D64.9 - ANEMIA, UNSPECIFIED (19) GERD (gastroesophageal reflux disease) Code(s): K21.9 - GASTRO-ESOPHAGEAL REFLUX DISEASE WITHOUT ESOPHAGITIS (20) Hemoptysis Code(s): R04.2 - HEMOPTYSIS (21) Leukocytosis Code(s): D72.829 - ELEVATED WHITE BLOOD CELL COUNT, UNSPECIFIED Qualifiers: Leukocytosis type: unspecified Qualified Code(s): D72.829 - Elevated white blood cell count, unspecified (22) Mood disorder Code(s): F39 - UNSPECIFIED MOOD [AFFECTIVE] DISORDER (23) Neuropathy Code(s): G62.9 - POLYNEUROPATHY, UNSPECIFIED Assessment/Plan Taper Medrol tomorrow if stable/improved BD TX Would monitor off ABX for now -> Suspect viral illness. O2 as needed Symbicort Usha GI evaluation Dr Castaneda Problem List - Problems (1) Acute exacerbation of COPD with asthma Code(s): J44.1 - CHRONIC OBSTRUCTIVE PULMONARY DISEASE W (ACUTE) EXACERBATION J45.901 - UNSPECIFIED ASTHMA WITH (ACUTE) EXACERBATION (2) Bronchitis Code(s): J40 - BRONCHITIS, NOT SPECIFIED ACUTE OR CHRONIC (3) Diarrhea in adult patient Code(s): R19.7 - DIARRHEA, UNSPECIFIED (4) Anxiety Code(s): F41.9 - ANXIETY DISORDER, UNSPECIFIED (5) Bipolar 2 disorder Code(s): F31.81 - BIPOLAR II DISORDER (6) COPD (chronic obstructive pulmonary disease) case management patient Code(s): [id number] - (7) Chronic back pain Code(s): M54.9 - DORSALGIA, UNSPECIFIED G89.29 - OTHER CHRONIC PAIN (8) Depression with anxiety Code(s): F41.8 - OTHER SPECIFIED ANXIETY DISORDERS (9) Gastritis Code(s): K29.70 - GASTRITIS, UNSPECIFIED, WITHOUT BLEEDING (10) HTN (hypertension) Code(s): I10 - ESSENTIAL (PRIMARY) HYPERTENSION Qualifiers: (11) Hyperlipidemia Code(s): E78.5 - HYPERLIPIDEMIA, UNSPECIFIED (12) Opioid dependence Code(s): F11.20 - OPIOID DEPENDENCE, UNCOMPLICATED (13) Paroxysmal atrial fibrillation Code(s): I48.0 - PAROXYSMAL ATRIAL FIBRILLATION (14) Afib Code(s): I48.91 - UNSPECIFIED ATRIAL FIBRILLATION (15) Anemia Code(s): D64.9 - ANEMIA, UNSPECIFIED (16) GERD (gastroesophageal reflux disease) Code(s): K21.9 - GASTRO-ESOPHAGEAL REFLUX DISEASE WITHOUT ESOPHAGITIS (17) Hemoptysis Code(s): R04.2 - HEMOPTYSIS (18) Leukocytosis Code(s): D72.829 - ELEVATED WHITE BLOOD CELL COUNT, UNSPECIFIED Qualifiers: Leukocytosis type: unspecified Qualified Code(s): D72.829 - Elevated white blood cell count, unspecified (19) Mood disorder Code(s): F39 - UNSPECIFIED MOOD [AFFECTIVE] DISORDER (20) Neuropathy Code(s): G62.9 - POLYNEUROPATHY, UNSPECIFIED
[2017-02-24] MEDS: LIPASE/PROTEASE/AMYLASE 6,000 UNIT CAPSULE PO SCH ×2 (13:43→18:37)
[2017-02-24] MEDS: SUCRALFATE 1 GM TABLET (FP) PO SCH ×3 (14:22→22:46)
--- NOTE | 2017-02-24 17:45 | EKG ---
Test Reason : Blood Pressure : / mmHG Vent. Rate : 088 BPM Atrial Rate : 088 BPM P-R Int : 128 ms QRS Dur : 084 ms QT Int : 350 ms P-R-T Axes : 034 006 035 degrees QTc Int : 423 ms NORMAL SINUS RHYTHM NORMAL ECG WHEN COMPARED WITH ECG OF 13-DEC-2016 12:11, NO SIGNIFICANT CHANGE WAS FOUND Confirmed by SERA RENTERIA MD ([id number]) on 02/24/2017 5:44:55 PM Referred By: Confirmed By:SERA RENTERIA MD
--- NOTE | 2017-02-24 18:55 | PN ---
Physical Exam: SUBJECTIVE: Patient seen and examined. She denies any shortness of breath or chest pain. States she is having frequent episodes of diarrhea. OBJECTIVE: GENERAL: The patient is awake, alert, and fully oriented, in no acute distress. HEAD: Normal with no signs of trauma. EYES: PERRL, extraocular movements intact, sclera anicteric, conjunctiva clear. No ptosis. ENT: Ears normal, nares patent, oropharynx clear without exudates, moist mucous membranes. NECK: Trachea midline, full range of motion, supple. LUNGS: expiratory wheezing, rhonchi on anterior lungs HEART: Regular rate and rhythm, S1, S2 without murmur, rub or gallop. ABDOMEN: abdominal pain improving, diarrhea EXTREMITIES: well-perfused, no edema. NEUROLOGICAL: Normal speech, gait not observed. PSYCH: Normal mood, normal affect. SKIN: Warm, dry, normal turgor, no rashes or lesions noted Active Medications Generic Name Dose Route Start Last Admin Trade Name Freq PRN Reason Stop Dose Admin Acetaminophen 650 mg 02/23/17 17:32 Tylenol - PO Q6H PRN PAIN Albuterol Sulfate 1 amp 02/23/17 18:00 02/24/17 18:27 Ventolin 0.083% Nebulizer Soln - NEB 1 amp QIDR [facility] Administration Albuterol/Ipratropium 1 amp 02/23/17 10:22 02/23/17 13:58 Duoneb - NEB 1 amp Q4H PRN Administration SHORTNESS OF BREATH Alprazolam 0.25 mg 02/23/17 22:00 02/24/17 09:09 Xanax - PO 0.25 mg BID [facility] Administration Baclofen 20 mg 02/23/17 14:00 02/24/17 14:22 Lioresal - PO 20 mg TID [facility] Administration Budesonide/Formoterol Fumarate 2 puff 02/23/17 10:00 02/24/17 09:10 Symbicort 160/4.5mcg - IH 2 puff BID [facility] Administration Cholecalciferol 2,000 unit 02/24/17 10:00 02/24/17 09:09 Vitamin D3 - PO 2,000 unit DAILY [facility] Administration Diltiazem HCl 60 mg 02/23/17 18:00 02/24/17 18:34 Cardizem - PO 60 mg Q6HPO [facility] Administration Diphenhydramine HCl 25 mg 02/23/17 17:32 Benadryl Oral Solution - PO Q4H PRN FOR ITCHING Doxepin HCl 25 mg 02/23/17 22:00 02/23/17 22:48 Sinequan - PO 25 mg HS [facility] Administration Eletriptan 40 mg 02/24/17 10:38 Relpax - PO Q6H PRN HEADACHE Gabapentin 300 mg 02/23/17 14:00 02/24/17 14:22 Neurontin - PO 300 mg TID [facility] Administration Heparin Sodium (Porcine) 5,000 unit 02/23/17 22:00 02/24/17 14:22 Heparin - SQ 5,000 unit TID [facility] Administration Hydromorphone HCl 1 mg 02/23/17 16:33 02/24/17 15:42 Dilaudid Injection - IVPB 1 mg Q4H PRN Administration PAIN Insulin Aspart 1 vial 02/24/17 11:00 02/24/17 16:40 Novolog Vial Sliding Scale - SQ 2 units ACHS [facility] Administration Protocol Levothyroxine Sodium 25 mcg 02/23/17 10:00 02/24/17 06:27 Synthroid - PO 25 mcg DAILY@0700 [facility] Administration Loperamide HCl 4 mg 02/24/17 10:25 02/24/17 18:34 Imodium - PO 4 mg Q6H PRN Administration DIARRHEA Magnesium Oxide 400 mg 02/23/17 22:00 02/24/17 09:09 Mag-Ox - PO 400 mg BID [facility] Administration Methylprednisolone Sodium Succinate 80 mg 02/23/17 14:00 02/24/17 14:22 Solu-Medrol - IVPB 80 mg TID [facility] Administration Metoprolol Tartrate 25 mg 02/23/17 14:00 02/24/17 14:22 Lopressor - PO 25 mg TID [facility] Administration Multi-Ingredient Ointment 1 applic 02/24/17 10:30 02/24/17 12:18 Zinc Oxide TP 1 applic BID [facility] Administration Multivitamins/Minerals/Vitamin C 1 tab 02/23/17 10:00 02/24/17 09:09 Tab-A-Vit - PO 1 tab DAILY [facility] Administration Vortioxetine ( 1 each 02/25/17 08:00 Trintellix) 10 Mg PO Tablet (Pt's Own) DAILY@0800 [facility] Ondansetron HCl 4 mg 02/23/17 08:18 02/24/17 07:58 Zofran Injection IVPB 4 mg Q6H PRN Administration NAUSEA Pancrelipase 3 cap 02/24/17 12:00 02/24/17 18:37 Eamon Turner 6,000 Units Capsule PO 3 cap TIDCM [facility] Administration Pantoprazole Sodium 40 mg 02/24/17 11:30 02/24/17 12:19 Protonix - PO 40 mg DAILY [facility] Administration Roflumilast 500 mcg 02/23/17 10:00 02/24/17 09:09 Daliresp - PO 500 mcg DAILY [facility] Administration Sucralfate 1 gm 02/24/17 14:00 02/24/17 18:38 Carafate - PO 1 gm QID [facility] Administration Zolpidem Tartrate 10 mg 02/23/17 17:32 02/23/17 21:18 Ambien - PO 10 mg HS PRN Administration INSOMNIA ASSESSMENT/PLAN: Patient is a 51 year old female with a past medical history of proximal atrial fib, hypertension, diabetes, COPD (home oxygen dependent), asthma, tracheostomy , uterine cancer, anxiety, depression, bipolar disorder. She presents to the ED on 02/23/2017 with nausea, diarrhea, productive cough, and left sided body pain since yesterday. She states she is currently on doxycycline, but reports having left lower sided body aches and diarrhea since taking this medication. She reports her cough has been persistent and productive of yellow sputum. She states the cough keeps her up at night. She was admitted to [place] with c/o of abdominal pain, diarrhea and acute COPD exacerbation. Imaging: Chest Xray 02/23/2017 - lungs better aerated - increased markings diminished GI: Abdominal pain with Diarrhea - likely secondary to antibiotics Assessment/Plan: Was on outpatient antibiotics of Doxycycline Rule out infectious vs. inflammatory cause On protonix PO, Zofran PRN Stool for c diff negative, will start on Immodium and assess for improvement Currently tolerating her diet, denies any nausea on exam Monitor and if worsening symptoms will consult GI Pulmonary: COPD/Asthma - acute on chronic Assessment/Plan: Patient with expiratory scattered wheezes, on 2-3 liters of nasal cannula Has trach site, c/d/i, maintain O2 sat >88% On Solumedrol 80mg IV TID, taper as tolerated Albuterol PRN, Symbicort Monitor off antibiotics Pulmonary following Psyche Bipolar/anxiety/depression Assessment/Plan: continue psyche home meds Endocrine: Diabetes mellitus - chronic Assessment/Plan: Novolog sliding scale Monitor BGMs on Solumedrol Cardiology: Proxy Atrial Fib Currently in Sinus rhythm On lopressor PO, Cardizem Taper Medrol tomorrow if stable/improved FEN Fluid: Tolerating PO Electrolytes: within normal limits Nutrition: Diabetic diet Prophylaxis DVT: SCD, heparin SQ GI: Protonix Disposition: Discharge back to intermediate when stable. Full Code. Visit type - Emergency Visit Emergency Visit: Yes ED Registration Date: 02/24/17 Care time: The patient presented to the Emergency Department on the above date and was hospitalized for further evaluation of their emergent condition. - New Patient This patient is new to me today: No - Critical Care Critical Care patient: No - Discharge Referral Referred to [facility] Med P.C.: No
[2017-02-24] MEDS ORDERED: LACTOBACILLUS ACIDOPHILUS 1 EACH TAB (FP) PO SCH (22:00)
[2017-02-24] MEDS: ZOLPIDEM TARTRATE 5 MG TABLET PO PRN (22:43)
[2017-02-24] MEDS: DOXEPIN HCL 25 MG CAPSULE PO SCH (22:46)
[2017-02-25] MEDS: HYDROmorphone HCL CARPU-JECT 1 MG/1 ML DISP.SYRIN IVPB PRN ×4 (00:26→20:21)
[2017-02-25] MEDS: LOPERAMIDE HCL 2 MG CAPSULE PO PRN ×3 (00:26→14:35)
[2017-02-25] MEDS: dilTIAZem HCL 30 MG TABLET (FP) PO SCH ×5 (00:26→23:56)
[2017-02-25] MEDS: ALBUTEROL SO4 0.083% IH SOL 2.5 MG/3 ML VIAL.NEB. NEB SCH ×3 (06:30→18:04)
[2017-02-25] MEDS: GABAPENTIN 300 MG CAPSULE (FP) PO SCH ×3 (06:38→21:58)
[2017-02-25] MEDS: methylPREDNISolone NA SUCC 125 MG/2 ML VIAL IVPB SCH ×3 (06:38→21:57)
[2017-02-25] MEDS: HEPARIN NA (PORCINE) 5,000 UNITS/ML 1ML VIAL SQ SCH ×3 (06:38→21:57)
[2017-02-25] MEDS: METOPROLOL TARTRATE 25 MG TABLET (FP) PO SCH ×3 (06:38→21:58)
[2017-02-25] MEDS: BACLOFEN 10 MG TABLET (FP) PO SCH ×3 (06:38→21:58)
[2017-02-25] MEDS: LEVOTHYROXINE NA 25 MCG TABLET (FP) PO SCH (06:39)
[2017-02-25] MEDS: INSULIN SLIDING SCALE (NOVOLOG) 1 VIAL SQ SCH ×4 (06:52→21:59)
[2017-02-25 08:13] LABS: BASOPHIL 0.1 % (0-2.0); MCH 26.4 pg (25.7-33.7); MCHC 32.5 g/dl (32.0-36.0); MEAN CELL VOLUME 81.3 fl (80-96); MEAN PLT VOLUME 8.6 fl (7.5-11.1); NEUTROPHILS 85.7 % (42.8-82.8); PLATELET COUNT 235 K/MM3 (134-434); WHITE BLOOD COUNT 5.5 K/mm3 (4.0-10.0)
[2017-02-25 08:25] LABS: ALBUMIN 2.8 g/dl (3.4-5.0); ALK PHOS 117 U/L (45-117); ANION GAP 11 (8-16); BILIRUBIN,TOTAL 0.4 mg/dL (0.2-1.0); CALCIUM 9.1 mg/dL (8.5-10.1); CO2 30 mmol/L (21-32); CREATININE 0.7 mg/dL (0.55-1.02); GLUCOSE,RANDOM 149 mg/dL (74-106); SGPT/ALT 38 U/L (12-78); TOT PROT 6.3 g/dl (6.4-8.2)
[2017-02-25 08:31] LABS: SGOT/AST 23 U/L (15-37)
[2017-02-25] MEDS: VORTIOXETINE 10 MG PO SCH (08:33)
[2017-02-25] MEDS: LIPASE/PROTEASE/AMYLASE 6,000 UNIT CAPSULE PO SCH ×3 (08:33→17:28)
[2017-02-25] MEDS: MAGNESIUM OXIDE 400 MG TABLET (FP) PO SCH (10:54)
[2017-02-25] MEDS: PANTOPRAZOLE 40 MG TABLET (FP) PO SCH (10:54)
[2017-02-25] MEDS: ALPRAZolam 0.25 MG TABLET PO SCH ×2 (10:54→21:58)
[2017-02-25] MEDS: MULTIVITAMINS (DAILY MVI) TABLET (FP) PO SCH (10:54)
[2017-02-25] MEDS: SUCRALFATE 1 GM TABLET (FP) PO SCH ×4 (10:55→21:58)
[2017-02-25] MEDS: ROFLUMILAST 500 MCG TABLET PO SCH (10:56)
[2017-02-25] MEDS: CHOLECALCIFEROL (VITAMIN D3) 1,000 UNIT TABLET (FP) PO SCH (10:56)
[2017-02-25] MEDS: BUDESONIDE/FORMETEROL FUMARATE 160/4.5 mcg INHALER IH SCH ×2 (10:56→21:58)
[2017-02-25] MEDS: ZINC OXIDE 20% TOPICAL OINTMENT 30 GM TUBE TP SCH ×2 (10:58→21:59)
--- NOTE | 2017-02-25 15:21 | PN ---
Progress Note, Physician History of Present Illness: PULMONARY ALERT,FEELING BETTER,LESS CONGESTED,+CLEAR SPUTUM - Current Medication List Current Medications: Active Medications Acetaminophen (Tylenol -) 650 mg PO Q6H PRN PRN Reason: PAIN Albuterol Sulfate (Ventolin 0.083% Nebulizer Soln -) 1 amp NEB QIDR [facility] Last Admin: 02/25/17 11:15 Dose: 1 amp Albuterol/Ipratropium (Duoneb -) 1 amp NEB Q4H PRN PRN Reason: SHORTNESS OF BREATH Last Admin: 02/23/17 13:58 Dose: 1 amp Alprazolam (Xanax -) 0.25 mg PO BID [facility] Last Admin: 02/25/17 10:54 Dose: 0.25 mg Baclofen (Lioresal -) 20 mg PO TID [facility] Last Admin: 02/25/17 13:55 Dose: 20 mg Budesonide/Formoterol Fumarate (Symbicort 160/4.5mcg -) 2 puff IH BID [facility] Last Admin: 02/25/17 10:56 Dose: 2 puff Cholecalciferol (Vitamin D3 -) 2,000 unit PO DAILY [facility] Last Admin: 02/25/17 10:56 Dose: 2,000 unit Diltiazem HCl (Cardizem -) 60 mg PO Q6HPO [facility] Last Admin: 02/25/17 12:23 Dose: 60 mg Diphenhydramine HCl (Benadryl Oral Solution -) 25 mg PO Q4H PRN PRN Reason: FOR ITCHING Doxepin HCl (Sinequan -) 25 mg PO HS [facility] Last Admin: 02/24/17 22:46 Dose: 25 mg Eletriptan (Relpax -) 40 mg PO Q6H PRN PRN Reason: HEADACHE Gabapentin (Neurontin -) 300 mg PO TID [facility] Last Admin: 02/25/17 13:55 Dose: 300 mg Heparin Sodium (Porcine) (Heparin -) 5,000 unit SQ TID [facility] Last Admin: 02/25/17 13:58 Dose: 5,000 unit Hydromorphone HCl (Dilaudid Injection -) 1 mg IVPB Q4H PRN PRN Reason: PAIN Last Admin: 02/25/17 14:36 Dose: 1 mg Insulin Aspart (Novolog Vial Sliding Scale -) 1 vial SQ ACHS [facility] PRN Reason: Protocol Last Admin: 02/25/17 11:06 Dose: 4 units Levothyroxine Sodium (Synthroid -) 25 mcg PO DAILY@0700 [facility] Last Admin: 02/25/17 06:39 Dose: 25 mcg Loperamide HCl (Imodium -) 4 mg PO Q6H PRN PRN Reason: DIARRHEA Last Admin: 02/25/17 14:35 Dose: 4 mg Magnesium Oxide (Mag-Ox -) 400 mg PO BID [facility] Last Admin: 02/25/17 10:54 Dose: 400 mg Methylprednisolone Sodium Succinate (Solu-Medrol -) 80 mg IVPB TID [facility] Last Admin: 02/25/17 13:58 Dose: 80 mg Metoprolol Tartrate (Lopressor -) 25 mg PO TID [facility] Last Admin: 02/25/17 13:55 Dose: 25 mg Multi-Ingredient Ointment (Zinc Oxide) 1 applic TP BID [facility] Last Admin: 02/25/17 10:58 Dose: 1 applic Multivitamins/Minerals/Vitamin C (Tab-A-Vit -) 1 tab PO DAILY [facility] Last Admin: 02/25/17 10:54 Dose: 1 tab Vortioxetine ( Trintellix) 10 Mg Tablet (Pt's Own) 1 each PO DAILY@0800 [facility] Last Admin: 02/25/17 08:33 Dose: 1 each Ondansetron HCl (Zofran Injection) 4 mg IVPB Q6H PRN PRN Reason: NAUSEA Last Admin: 02/24/17 07:58 Dose: 4 mg Pancrelipase (Creon Dr 6,000 Units Capsule) 3 cap PO TIDCM [facility] Last Admin: 02/25/17 12:23 Dose: 3 cap Pantoprazole Sodium (Protonix -) 40 mg PO DAILY [facility] Last Admin: 02/25/17 10:54 Dose: 40 mg Roflumilast (Daliresp -) 500 mcg PO DAILY [facility] Last Admin: 02/25/17 10:56 Dose: 500 mcg Sucralfate (Carafate -) 1 gm PO QID [facility] Last Admin: 02/25/17 13:59 Dose: 1 gm Zolpidem Tartrate (Ambien -) 10 mg PO HS PRN PRN Reason: INSOMNIA Last Admin: 02/24/17 22:43 Dose: 10 mg - Objective Vital Signs: Vital Signs Temperature 98.0 F 02/25/17 14:28 Pulse Rate 69 02/25/17 14:28 Respiratory Rate 20 02/25/17 05:00 Blood Pressure 127/68 02/25/17 14:28 O2 Sat by Pulse Oximetry (%) 98 02/25/17 11:15 Constitutional: Yes: Well Nourished, Calm Eyes: Yes: WNL HENT: Yes: WNL Neck: Yes: WNL Cardiovascular: Yes: Regular Rate and Rhythm, S1, S2 Respiratory: Yes: Rhonchi, Wheezes (BILATERALWHEEZES AND RHONCHI) Gastrointestinal: Yes: Normal Bowel Sounds, Soft Extremities: Yes: WNL Edema: No Labs: CBC, BMP 02/25/17 06:30 02/25/17 06:30 Assessment/Plan Problem List - Problems (1) Acute exacerbation of COPD with asthma Code(s): J44.1 - CHRONIC OBSTRUCTIVE PULMONARY DISEASE W (ACUTE) EXACERBATION J45.901 - UNSPECIFIED ASTHMA WITH (ACUTE) EXACERBATION (2) Bronchitis Code(s): J40 - BRONCHITIS, NOT SPECIFIED ACUTE OR CHRONIC (3) Diarrhea in adult patient Code(s): R19.7 - DIARRHEA, UNSPECIFIED (4) Anxiety Code(s): F41.9 - ANXIETY DISORDER, UNSPECIFIED (5) Bipolar 2 disorder Code(s): F31.81 - BIPOLAR II DISORDER (6) COPD (chronic obstructive pulmonary disease) case management patient Code(s): [id number] - (7) Chronic back pain Code(s): M54.9 - DORSALGIA, UNSPECIFIED G89.29 - OTHER CHRONIC PAIN (8) Depression with anxiety Code(s): F41.8 - OTHER SPECIFIED ANXIETY DISORDERS (9) Gastritis Code(s): K29.70 - GASTRITIS, UNSPECIFIED, WITHOUT BLEEDING (10) HTN (hypertension) Code(s): I10 - ESSENTIAL (PRIMARY) HYPERTENSION Qualifiers: (11) Hyperlipidemia Code(s): E78.5 - HYPERLIPIDEMIA, UNSPECIFIED (12) Opioid dependence Code(s): F11.20 - OPIOID DEPENDENCE, UNCOMPLICATED (13) Paroxysmal atrial fibrillation Code(s): I48.0 - PAROXYSMAL ATRIAL FIBRILLATION (14) Chronic pain Code(s): G89.29 - OTHER CHRONIC PAIN (15) Nausea & vomiting Code(s): R11.2 - NAUSEA WITH VOMITING, UNSPECIFIED (16) Vomiting Code(s): R11.10 - VOMITING, UNSPECIFIED Qualifiers: Vomiting type: unspecified Vomiting Intractability: unspecified Nausea presence: with nausea Qualified Code(s): R11.2 - Nausea with vomiting , unspecified (17) Afib Code(s): I48.91 - UNSPECIFIED ATRIAL FIBRILLATION (18) Anemia Code(s): D64.9 - ANEMIA, UNSPECIFIED (19) GERD (gastroesophageal reflux disease) Code(s): K21.9 - GASTRO-ESOPHAGEAL REFLUX DISEASE WITHOUT ESOPHAGITIS (20) Hemoptysis Code(s): R04.2 - HEMOPTYSIS (21) Leukocytosis Code(s): D72.829 - ELEVATED WHITE BLOOD CELL COUNT, UNSPECIFIED Qualifiers: Leukocytosis type: unspecified Qualified Code(s): D72.829 - Elevated white blood cell count, unspecified (22) Mood disorder Code(s): F39 - UNSPECIFIED MOOD [AFFECTIVE] DISORDER (23) Neuropathy Code(s): G62.9 - POLYNEUROPATHY, UNSPECIFIED Assessment/Plan Taper Medrol BD TX O2 as needed Symbicort Usha RUFFIN
[2017-02-25] MEDS: ONDANSETRON 4 MG/2 ML VIAL IVPB PRN (16:08)
[2017-02-25] MEDS: ACETYLCYSTEINE 20% 200MG/ML 4 ML VIAL *FOR ORAL / INH USE ONLY NEB SCH (18:03)
--- NOTE | 2017-02-25 19:01 | PN ---
Physical Exam: SUBJECTIVE: Patient seen and examined. She says she wants an appetite stimulant and something to help her expel the mucus OBJECTIVE: Vital Signs Period Temp Pulse Resp BP Sys/Dan Pulse Ox Last 24 Hr 97.3 F-98.4 F 67-94 18-20 96-137/54-83 98-98 PE Neuro: alert, awake, cn 2-12intact HEENT: trach scar Pulm: basilar crackles, rhonchi + NC Abd: s nt nd +bs Ext: Warm, no le edema Laboratory Results - last 24 hr 02/24/17 02/25/17 02/25/17 22:54 06:30 06:30 WBC 5.5 RBC 3.96 Hgb 10.5 L Hct 32.2 L MCV 81.3 MCHC 32.5 RDW 18.0 H Plt Count 235 MPV 8.6 Neutrophils % 85.7 H Lymphocytes % 11.3 D Monocytes % 2.9 L Eosinophils % 0.0 Basophils % 0.1 Sodium 143 Potassium 4.3 Chloride 102 Carbon Dioxide 30 Anion Gap 11 BUN 19 H D Creatinine 0.7 D Creat Clearance w eGFR > 60 POC Glucometer 223 Random Glucose 149 H D Calcium 9.1 Total Bilirubin 0.4 D AST 23 ALT 38 Alkaline Phosphatase 117 Total Protein 6.3 L Albumin 2.8 L Active Medications Generic Name Dose Route Start Last Admin Trade Name Freq PRN Reason Stop Dose Admin Acetaminophen 650 mg 02/23/17 17:32 Tylenol - PO Q6H PRN PAIN Acetylcysteine 200 mg 02/25/17 18:00 Mucomyst 20 Oral / Inh Use Only* NEB QIDR EMMY Albuterol Sulfate 1 amp 02/25/17 18:00 Ventolin 0.083% Nebulizer Soln - NEB QIDR EMMY Albuterol/Ipratropium 1 amp 02/23/17 10:22 02/23/17 13:58 Duoneb - NEB 1 amp Q4H PRN Administration SHORTNESS OF BREATH Alprazolam 0.25 mg 02/23/17 22:00 02/25/17 10:54 Xanax - PO 0.25 mg BID EMMY Administration Baclofen 20 mg 02/23/17 14:00 02/25/17 13:55 Lioresal - PO 20 mg TID EMMY Administration Budesonide/Formoterol Fumarate 2 puff 02/23/17 10:00 02/25/17 10:56 Symbicort 160/4.5mcg - IH 2 puff BID EMMY Administration Cholecalciferol 2,000 unit 02/24/17 10:00 02/25/17 10:56 Vitamin D3 - PO 2,000 unit DAILY EMMY Administration Diltiazem HCl 60 mg 02/23/17 18:00 02/25/17 17:28 Cardizem - PO 60 mg Q6HPO EMMY Administration Diphenhydramine HCl 25 mg 02/23/17 17:32 Benadryl Oral Solution - PO Q4H PRN FOR ITCHING Doxepin HCl 25 mg 02/23/17 22:00 02/24/17 22:46 Sinequan - PO 25 mg HS EMMY Administration Eletriptan 40 mg 02/24/17 10:38 Relpax - PO Q6H PRN HEADACHE Gabapentin 300 mg 02/23/17 14:00 02/25/17 13:55 Neurontin - PO 300 mg TID [facility] Administration Heparin Sodium (Porcine) 5,000 unit 02/23/17 22:00 02/25/17 13:58 Heparin - SQ 5,000 unit TID [facility] Administration Hydromorphone HCl 1 mg 02/23/17 16:33 02/25/17 14:36 Dilaudid Injection - IVPB 1 mg Q4H PRN Administration PAIN Insulin Aspart 1 vial 02/24/17 11:00 02/25/17 16:17 Novolog Vial Sliding Scale - SQ 2 units ACHS EMMY Administration Protocol Levothyroxine Sodium 25 mcg 02/23/17 10:00 02/25/17 06:39 Synthroid - PO 25 mcg DAILY@0700 [facility] Administration Loperamide HCl 4 mg 02/24/17 10:25 02/25/17 14:35 Imodium - PO 4 mg Q6H PRN Administration DIARRHEA Magnesium Oxide 400 mg 02/23/17 22:00 02/25/17 10:54 Mag-Ox - PO 400 mg BID [facility] Administration Methylprednisolone Sodium Succinate 60 mg 02/25/17 22:00 Solu-Medrol - IVPB TID [facility] Metoprolol Tartrate 25 mg 02/23/17 14:00 02/25/17 13:55 Lopressor - PO 25 mg TID [facility] Administration Multi-Ingredient Ointment 1 applic 02/24/17 10:30 02/25/17 10:58 Zinc Oxide TP 1 applic BID EMMY Administration Multivitamins/Minerals/Vitamin C 1 tab 02/23/17 10:00 02/25/17 10:54 Tab-A-Vit - PO 1 tab DAILY EMMY Administration Vortioxetine ( 1 each 02/25/17 08:00 02/25/17 08:33 Trintellix) 10 Mg PO 1 each Tablet (Pt's Own) DAILY@0800 EMMY Administration Ondansetron HCl 4 mg 02/23/17 08:18 02/25/17 16:08 Zofran Injection IVPB 4 mg Q6H PRN Administration NAUSEA Pancrelipase 3 cap 02/24/17 12:00 02/25/17 17:[address] 6,000 Units Capsule PO 3 cap TIDCM EMMY Administration Pantoprazole Sodium 40 mg 02/24/17 11:30 02/25/17 10:54 Protonix - PO 40 mg DAILY EMMY Administration Roflumilast 500 mcg 02/23/17 10:00 02/25/17 10:56 Daliresp - PO 500 mcg DAILY EMMY Administration Sucralfate 1 gm 02/24/17 14:00 02/25/17 17:29 Carafate - PO 1 gm QID EMMY Administration Zolpidem Tartrate 10 mg 02/23/17 17:32 02/24/17 22:43 Ambien - PO 10 mg HS PRN Administration INSOMNIA Assessment: 51 year old female with atrial fib, hypertension, diabetes, COPD ( home oxygen dependent), asthma, tracheostomy (now closed), uterine cancer, anxiety, depression, bipolar disorder admitted with nausea, diarrhea, productive cough, and left sided body pain. Plan: 1. Abdominal pain with Diarrhea, hx of chronic abd pain - Likely due to chronic abx use - C diff negative - Appetite poor - PRN zofran - PO protonix 2. Acute on chronic COPD acute on chronic - Medrol 60mg q8 - Roflumilast - Mucomyst with albuterol - Duonebs prn - D/w Pulm 3. Bipolar/anxiety/depression - Continue psyche home meds 4. DM II - ISS, BGM ACHS 5. Proxy Atrial Fib - Metoprolol 25mg TID - Cardizem 60mg q6h Visit type - Emergency Visit Emergency Visit: Yes ED Registration Date: 02/24/17 Care time: The patient presented to the Emergency Department on the above date and was hospitalized for further evaluation of their emergent condition. - New Patient This patient is new to me today: Yes Date on this admission: 02/26/17 - Critical Care Critical Care patient: No - Discharge Referral Referred to [facility] No
[2017-02-25] MEDS ORDERED: MEGESTROL ACETATE 400 MG/10 ML UNIT DOSE CUP PO SCH (19:15)
--- NOTE | 2017-02-25 19:24 | CON.GI ---
Consult Consult Specialty:: GI Referred by:: Hospitalist Reason for Consultation:: abdominal pain and diarrhea - History of Present Illness Chief Complaint: diarrhea History of Present Illness: 51 F, well-known to our service with multiple admissions for pain, respiratory compromise related to O2-dependent COPD, diarrhea now admitted with N/V/D. C diff sent and negative. She was started on Imodium and is now well controlled. Diarrhea likelfy secondary to AbRx (doxy) - History Source History Provided By: Medical Record Limitations to Obtaining History: Poor Historian - Past Medical History Cardio/Vascular: Yes: AFIB (Paroxysmal), HTN, Hyperlipdemia Pulmonary: Yes: Asthma, COPD, O2 Dependent Renal/: Yes: Cancer (Uterine), Other ([place] in the past) Infectious Disease: Yes: C-Diff (june 2014), Other (Osteomyelitis of thoracic spine) Psych: Yes: Anxiety, Bipolar, Depression Musculoskeletal: Yes: Chronic low back pain Additional Medical History: Frequent c/o abdominal pain-extensive w/u in the past negative. Presumed adhesions from prior surgeries. - Past Surgical History Past Surgical History: Yes: Hysterectomy (with BSO) - Alcohol/Substance Use Hx Alcohol Use: No - Smoking History Smoking history: Former smoker Have you smoked in the past 12 months: No Aproximately how many cigarettes per day: 3 If you are a former smoker, when did you quit?: 10/11/14 - Social History Usual Living Arrangement: With Significant Other 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) History of Recent Travel: No Home Medications - Allergies Allergies/Adverse Reactions: Allergies Allergy/AdvReac Type Severity Reaction Status Date / Time oxycodone [Oxycodone] Allergy Severe Nausea Verified 02/23/17 05:20 oxycodone HCl [From Percocet] Allergy Severe Nausea Verified 02/23/17 05:20 aspirin Allergy Mild Verified 02/23/17 05:20 blueberry [Blueberry] Allergy Mild Swelling Verified 02/23/17 05:20 fentanyl Allergy Verified 02/23/17 13:40 - Home Medications Home Medications: Ambulatory Orders Acetaminophen [Tylenol .Regular Strength -] 650 mg PO Q6H PRN #0 tablet Levothyroxine [Synthroid -] 25 mcg PO DAILY@0700 tablet 06/05/16 Albuterol 2.5/Ipratropium 0.5 [Duoneb -] 1 amp NEB Q4HPO amp 09/17/16 Alprazolam [Xanax] 0.25 mg PO BID tablet MDD 2 09/17/16 Diltiazem [Cardizem -] 60 mg PO Q6HPO tablet 09/17/16 Magnesium Oxide [Mag-Ox -] 400 mg PO BID tablet 09/17/16 Baclofen [Lioresal -] 20 mg PO TID 10/01/16 Budesonide/Formeterol Fumarate [SYMBICORT 160/4.5mcg -] 2 inh PO BID 11/01/16 Diphenhydramine [Benadryl 12.5 MG/5 ML Oral Solution -] 25 mg PO Q4H PRN Eletriptan Hydrobromide [Relpax -] 40 mg PO PRN 11/01/16 Gabapentin [Neurontin -] 300 mg PO TID 11/01/16 Metoprolol Tartrate [Lopressor -] 25 mg PO TID 11/01/16 Omeprazole 40 mg PO BID 11/01/16 Roflumilast [Daliresp] 500 mcg PO DAILY 11/01/16 Zolpidem Tartrate [Ambien] 10 mg PO HS PRN MDD 1 11/01/16 Lipase/Protease/Amylase [Eamon Turner 6,000 Units Capsule] 3 cap PO TIDCM capsule. 11/07/16 Insulin Sliding Scale [Novolog Vial Sliding Scale -] 0 units SQ ACHS PRN Doxepin HCl [Sinequan -] 25 mg PO HS capsule 11/20/16 Lactobacillus Acidophilus [Bacid -] 1 tab PO BID tab 11/20/16 Metoclopramide HCl [Reglan -] 10 mg PO TIDAC tablet 11/20/16 Multivitamins [Multivit ([facility] Formul[facility])] 1 tab PO DAILY tab 11/20/16 Ondansetron [Zofran -] 4 mg PO Q4H PRN #0 tablet 11/20/16 Zinc Oxide 1 applic TP BID tube 11/20/16 Insulin (Levemir) [Levemir Vial] 5 unit SQ DAILY #1 vial 11/21/16 Cholecalciferol (Vitamin D3) [Vitamin D3 -] 2,000 unit PO DAILY #30 tab Heparin - 5,000 unit SQ TID vial 11/28/16 Albuterol Sulfate Inhaler - [Ventolin HFA Inhaler -] 2 puff IH Q4H PRN #0 inhaler 11/29/16 Prednisone 10 mg PO DAILY #15 tablet 11/29/16 Sucralfate [Carafate -] 1 gm PO QID tablet 12/16/16 Hydromorphone [Dilaudid -] 4 mg PO Q4H PRN #0 tablet MDD 24mg 12/17/16 Family Disease History - Family Disease History Family Disease History: Diabetes: Mother (heart surgery), Heart Disease: Mother , [place]: Father (leukemia) Physical Exam-GI Vital Signs: Vital Signs Temperature 98.4 F 02/25/17 18:36 Pulse Rate 75 02/25/17 18:36 Respiratory Rate 18 02/25/17 18:36 Blood Pressure 137/65 02/25/17 18:36 O2 Sat by Pulse Oximetry (%) 98 02/25/17 11:15 Constitutional: Yes: Obese Cardiovascular: Yes: Regular Rate and Rhythm Respiratory: Yes: CTA Bilaterally Gastrointestinal Inspection: Yes: Distention, Scars ( gridiron abd) ...Palpate: Yes: Soft Labs: CBC, BMP 02/25/17 06:30 02/25/17 06:30 Assessment/Plan Patient C diff neg Diarrhea has resolved with Immodium Likely secondary to chronic AbRx Abdominal pain chronic secondary to adhesions Dietary advice given
[2017-02-25] MEDS ORDERED: PT OWN MED DRAWER 7, Y5N ONE (21:55)
[2017-02-25] MEDS: DOXEPIN HCL 25 MG CAPSULE PO SCH (21:58)
[2017-02-25] MEDS: ZOLPIDEM TARTRATE 5 MG TABLET PO PRN (22:02)
[2017-02-26] MEDS: ACETYLCYSTEINE 20% 200MG/ML 4 ML VIAL *FOR ORAL / INH USE ONLY NEB SCH ×4 (00:22→19:02)
[2017-02-26] MEDS: ALBUTEROL SO4 0.083% IH SOL 2.5 MG/3 ML VIAL.NEB. NEB SCH ×4 (00:22→19:02)
[2017-02-26] MEDS: HYDROmorphone HCL CARPU-JECT 1 MG/1 ML DISP.SYRIN IVPB PRN ×5 (01:01→20:28)
[2017-02-26] MEDS ORDERED: PT OWN MED DRAWER 7, Y5N ONE ×7 (05:43→18:05)
[2017-02-26] MEDS: BACLOFEN 10 MG TABLET (FP) PO SCH ×3 (05:46→21:49)
[2017-02-26] MEDS: HEPARIN NA (PORCINE) 5,000 UNITS/ML 1ML VIAL SQ SCH ×3 (05:46→21:48)
[2017-02-26] MEDS: methylPREDNISolone NA SUCC 125 MG/2 ML VIAL IVPB SCH ×3 (05:46→21:48)
[2017-02-26] MEDS: dilTIAZem HCL 30 MG TABLET (FP) PO SCH ×4 (05:46→23:43)
[2017-02-26] MEDS: METOPROLOL TARTRATE 25 MG TABLET (FP) PO SCH ×3 (05:47→21:48)
[2017-02-26] MEDS: GABAPENTIN 300 MG CAPSULE (FP) PO SCH ×3 (05:47→21:49)
[2017-02-26] MEDS: LEVOTHYROXINE NA 25 MCG TABLET (FP) PO SCH (06:30)
[2017-02-26] MEDS: INSULIN SLIDING SCALE (NOVOLOG) 1 VIAL SQ SCH ×4 (06:30→22:06)
[2017-02-26] MEDS: VORTIOXETINE 10 MG PO SCH (08:08)
[2017-02-26] MEDS: PANTOPRAZOLE 40 MG TABLET (FP) PO SCH ×2 (08:28→10:56)
[2017-02-26] MEDS: LIPASE/PROTEASE/AMYLASE 6,000 UNIT CAPSULE PO SCH ×3 (09:22→17:17)
[2017-02-26] MEDS: ALBUTEROL SO4 2.5/IPRATROPIUM 0.5 INH SOL 3 ML VIAL.NEB. NEB PRN ×2 (10:06→16:38)
[2017-02-26] MEDS: ROFLUMILAST 500 MCG TABLET PO SCH (10:56)
[2017-02-26] MEDS: ALPRAZolam 0.25 MG TABLET PO SCH ×2 (10:56→21:49)
[2017-02-26] MEDS: CHOLECALCIFEROL (VITAMIN D3) 1,000 UNIT TABLET (FP) PO SCH (10:56)
[2017-02-26] MEDS: MULTIVITAMINS (DAILY MVI) TABLET (FP) PO SCH (10:56)
[2017-02-26] MEDS: SUCRALFATE 1 GM TABLET (FP) PO SCH ×4 (10:56→21:49)
[2017-02-26] MEDS: BUDESONIDE/FORMETEROL FUMARATE 160/4.5 mcg INHALER IH SCH ×2 (10:56→21:48)
[2017-02-26] MEDS: ZINC OXIDE 20% TOPICAL OINTMENT 30 GM TUBE TP SCH ×2 (10:57→22:08)
--- NOTE | 2017-02-26 11:00 | PN ---
Progress Note (short form) - Note Progress Note: Breathing mildly improved compared to yesterday. Still with congested cough. Less diarrhea. Intake & Output 02/23/17 02/24/17 02/25/17 02/26/17 23:59 23:59 23:59 23:59 Intake Total 700 1520 1650 1240 Balance 700 1520 1650 1240 Weight 133 lb 0.007 oz Last Vital Signs Temp Pulse Resp BP Pulse Ox 98.2 F 82 20 124/78 98 02/26/17 05:00 02/26/17 05:00 02/26/17 05:00 02/26/17 05:00 02/25/17 21:00 Active Medications Acetaminophen (Tylenol -) 650 mg PO Q6H PRN PRN Reason: PAIN Acetylcysteine (Mucomyst 20 Oral / Inh Use Only*) 200 mg NEB QIDR [facility] Last Admin: 02/26/17 06:40 Dose: Not Given Albuterol Sulfate (Ventolin 0.083% Nebulizer Soln -) 1 amp NEB QIDR [facility] Last Admin: 02/26/17 06:40 Dose: 1 amp Albuterol/Ipratropium (Duoneb -) 1 amp NEB Q4H PRN PRN Reason: SHORTNESS OF BREATH Last Admin: 02/26/17 10:06 Dose: 1 amp Alprazolam (Xanax -) 0.25 mg PO BID [facility] Last Admin: 02/26/17 10:56 Dose: 0.25 mg Baclofen (Lioresal -) 20 mg PO TID [facility] Last Admin: 02/26/17 05:46 Dose: 20 mg Budesonide/Formoterol Fumarate (Symbicort 160/4.5mcg -) 2 puff IH BID [facility] Last Admin: 02/26/17 10:56 Dose: 2 puff Cholecalciferol (Vitamin D3 -) 2,000 unit PO DAILY [facility] Last Admin: 02/26/17 10:56 Dose: 2,000 unit Diltiazem HCl (Cardizem -) 60 mg PO Q6HPO [facility] Last Admin: 02/26/17 05:46 Dose: 60 mg Diphenhydramine HCl (Benadryl Oral Solution -) 25 mg PO Q4H PRN PRN Reason: FOR ITCHING Doxepin HCl (Sinequan -) 25 mg PO HS [facility] Last Admin: 02/25/17 21:58 Dose: 25 mg Eletriptan (Relpax -) 40 mg PO Q6H PRN PRN Reason: HEADACHE Gabapentin (Neurontin -) 300 mg PO TID [facility] Last Admin: 02/26/17 05:47 Dose: 300 mg Heparin Sodium (Porcine) (Heparin -) 5,000 unit SQ TID [facility] Last Admin: 02/26/17 05:46 Dose: 5,000 unit Hydromorphone HCl (Dilaudid Injection -) 1 mg IVPB Q4H PRN PRN Reason: PAIN Last Admin: 02/26/17 05:48 Dose: 1 mg Insulin Aspart (Novolog Vial Sliding Scale -) 1 vial SQ ACHS [facility] PRN Reason: Protocol Last Admin: 02/26/17 06:30 Dose: 6 units Levothyroxine Sodium (Synthroid -) 25 mcg PO DAILY@0700 [facility] Last Admin: 02/26/17 06:30 Dose: 25 mcg Methylprednisolone Sodium Succinate (Solu-Medrol -) 60 mg IVPB TID [facility] Last Admin: 02/26/17 05:46 Dose: 60 mg Metoprolol Tartrate (Lopressor -) 25 mg PO TID [facility] Last Admin: 02/26/17 05:47 Dose: 25 mg Multi-Ingredient Ointment (Zinc Oxide) 1 applic TP BID [facility] Last Admin: 02/26/17 10:57 Dose: 1 applic Multivitamins/Minerals/Vitamin C (Tab-A-Vit -) 1 tab PO DAILY [facility] Last Admin: 02/26/17 10:56 Dose: 1 tab Vortioxetine ( Trintellix) 10 Mg Tablet (Pt's Own) 1 each PO DAILY@0800 [facility] Last Admin: 02/26/17 08:08 Dose: 1 each Ondansetron HCl (Zofran Injection) 4 mg IVPB Q6H PRN PRN Reason: NAUSEA Last Admin: 02/25/17 16:08 Dose: 4 mg Pancrelipase (Creon Dr 6,000 Units Capsule) 3 cap PO TIDCM [facility] Last Admin: 02/26/17 09:22 Dose: 3 cap Pantoprazole Sodium (Protonix -) 40 mg PO DAILY [facility] Last Admin: 02/26/17 10:56 Dose: Not Given Roflumilast (Daliresp -) 500 mcg PO DAILY [facility] Last Admin: 02/26/17 10:56 Dose: 500 mcg Sucralfate (Carafate -) 1 gm PO QID [facility] Last Admin: 02/26/17 10:56 Dose: 1 gm Zolpidem Tartrate (Ambien -) 10 mg PO HS PRN PRN Reason: INSOMNIA Last Admin: 02/25/17 22:02 Dose: 10 mg Constitutional: Yes: Anxious, NAD Eyes: Yes: Conjunctiva Clear, EOM Intact HENT: Yes: Atraumatic, Normocephalic Neck: Yes: Trachea Midline, Other (decannulated) Cardiovascular: Yes: Pulse Irregular Respiratory: Yes: Cough, Diminished, On Nasal O2, Rhonchi, SOB, Wheezes. No: Accessory Muscle Use, Stridor Gastrointestinal: Yes: Normal Bowel Sounds, Soft ...Rectal Exam: Yes: Deferred Renal/: Yes: WNL Musculoskeletal: Yes: WNL Extremities: Yes: WNL Edema: No Peripheral Pulses WNL: Yes Integumentary: Yes: WNL Neurological: Yes: Alert, Oriented ...Motor Strength: WNL Psychiatric: Yes: Alert, Anxious Laboratory Results - last 24 hr 02/25/17 02/25/17 02/25/17 11:03 16:14 21:21 POC Glucometer 249 187 241 02/26/17 05:37 POC Glucometer 270 Problem List - Problems (1) Acute exacerbation of COPD with asthma Code(s): J44.1 - CHRONIC OBSTRUCTIVE PULMONARY DISEASE W (ACUTE) EXACERBATION J45.901 - UNSPECIFIED ASTHMA WITH (ACUTE) EXACERBATION (2) Bronchitis Code(s): J40 - BRONCHITIS, NOT SPECIFIED ACUTE OR CHRONIC (3) Diarrhea in adult patient Code(s): R19.7 - DIARRHEA, UNSPECIFIED (4) Anxiety Code(s): F41.9 - ANXIETY DISORDER, UNSPECIFIED (5) Bipolar 2 disorder Code(s): F31.81 - BIPOLAR II DISORDER (6) COPD (chronic obstructive pulmonary disease) case management patient Code(s): [id number] - (7) Chronic back pain Code(s): M54.9 - DORSALGIA, UNSPECIFIED G89.29 - OTHER CHRONIC PAIN (8) Depression with anxiety Code(s): F41.8 - OTHER SPECIFIED ANXIETY DISORDERS (9) Gastritis Code(s): K29.70 - GASTRITIS, UNSPECIFIED, WITHOUT BLEEDING (10) HTN (hypertension) Code(s): I10 - ESSENTIAL (PRIMARY) HYPERTENSION Qualifiers: (11) Hyperlipidemia Code(s): E78.5 - HYPERLIPIDEMIA, UNSPECIFIED (12) Opioid dependence Code(s): F11.20 - OPIOID DEPENDENCE, UNCOMPLICATED (13) Paroxysmal atrial fibrillation Code(s): I48.0 - PAROXYSMAL ATRIAL FIBRILLATION (14) Chronic pain Code(s): G89.29 - OTHER CHRONIC PAIN (15) Nausea & vomiting Code(s): R11.2 - NAUSEA WITH VOMITING, UNSPECIFIED (16) Vomiting Code(s): R11.10 - VOMITING, UNSPECIFIED Qualifiers: Vomiting type: unspecified Vomiting Intractability: unspecified Nausea presence: with nausea Qualified Code(s): R11.2 - Nausea with vomiting , unspecified (17) Afib Code(s): I48.91 - UNSPECIFIED ATRIAL FIBRILLATION (18) Anemia Code(s): D64.9 - ANEMIA, UNSPECIFIED (19) GERD (gastroesophageal reflux disease) Code(s): K21.9 - GASTRO-ESOPHAGEAL REFLUX DISEASE WITHOUT ESOPHAGITIS (20) Hemoptysis Code(s): R04.2 - HEMOPTYSIS (21) Leukocytosis Code(s): D72.829 - ELEVATED WHITE BLOOD CELL COUNT, UNSPECIFIED Qualifiers: Leukocytosis type: unspecified Qualified Code(s): D72.829 - Elevated white blood cell count, unspecified (22) Mood disorder Code(s): F39 - UNSPECIFIED MOOD [AFFECTIVE] DISORDER (23) Neuropathy Code(s): G62.9 - POLYNEUROPATHY, UNSPECIFIED Assessment/Plan Would leave Medrol at current dose today BD TX Would monitor off ABX -> Suspect viral illness. O2 as needed Symbicort Daliresp GI evaluation noted Dr Castaneda Problem List - Problems (1) Acute exacerbation of COPD with asthma Code(s): J44.1 - CHRONIC OBSTRUCTIVE PULMONARY DISEASE W (ACUTE) EXACERBATION J45.901 - UNSPECIFIED ASTHMA WITH (ACUTE) EXACERBATION (2) Bronchitis Code(s): J40 - BRONCHITIS, NOT SPECIFIED ACUTE OR CHRONIC (3) Diarrhea in adult patient Code(s): R19.7 - DIARRHEA, UNSPECIFIED (4) Anxiety Code(s): F41.9 - ANXIETY DISORDER, UNSPECIFIED (5) Bipolar 2 disorder Code(s): F31.81 - BIPOLAR II DISORDER (6) COPD (chronic obstructive pulmonary disease) case management patient Code(s): [id number] - (7) Chronic back pain Code(s): M54.9 - DORSALGIA, UNSPECIFIED G89.29 - OTHER CHRONIC PAIN (8) Depression with anxiety Code(s): F41.8 - OTHER SPECIFIED ANXIETY DISORDERS (9) Gastritis Code(s): K29.70 - GASTRITIS, UNSPECIFIED, WITHOUT BLEEDING (10) HTN (hypertension) Code(s): I10 - ESSENTIAL (PRIMARY) HYPERTENSION Qualifiers: (11) Hyperlipidemia Code(s): E78.5 - HYPERLIPIDEMIA, UNSPECIFIED (12) Opioid dependence Code(s): F11.20 - OPIOID DEPENDENCE, UNCOMPLICATED (13) Paroxysmal atrial fibrillation Code(s): I48.0 - PAROXYSMAL ATRIAL FIBRILLATION (14) Afib Code(s): I48.91 - UNSPECIFIED ATRIAL FIBRILLATION (15) Anemia Code(s): D64.9 - ANEMIA, UNSPECIFIED (16) GERD (gastroesophageal reflux disease) Code(s): K21.9 - GASTRO-ESOPHAGEAL REFLUX DISEASE WITHOUT ESOPHAGITIS (17) Hemoptysis Code(s): R04.2 - HEMOPTYSIS (18) Leukocytosis Code(s): D72.829 - ELEVATED WHITE BLOOD CELL COUNT, UNSPECIFIED Qualifiers: Leukocytosis type: unspecified Qualified Code(s): D72.829 - Elevated white blood cell count, unspecified (19) Mood disorder Code(s): F39 - UNSPECIFIED MOOD [AFFECTIVE] DISORDER (20) Neuropathy Code(s): G62.9 - POLYNEUROPATHY, UNSPECIFIED
[2017-02-26] MEDS ORDERED: INSULIN (NOVOLOG) ASPART 100 UNITS/ML 10ML VIAL ONE ×2 (12:02→22:04)
[2017-02-26] MEDS ORDERED: guaiFENesin 200 MG/10 ML 10 ML UNIT-DOSE CUPS PO PRN (17:39)
--- NOTE | 2017-02-26 17:40 | PN ---
Physical Exam: SUBJECTIVE: Patient seen and examined. She says she mucomyst makes her nauseated , she also feels she is constipated in the middle of her colon OBJECTIVE: Vital Signs Period Temp Pulse Resp BP Sys/Dan Pulse Ox Last 24 Hr 98 F-98.4 F 66-83 18-20 117-137/61-78 98-98 PE Neuro: alert, awake, cn 2-12intact HEENT: trach scar Pulm: basilar crackles, rhonchi + NC Abd: s nt nd +bs Ext: Warm, no le edema Laboratory Results - last 24 hr 02/25/17 02/26/17 02/26/17 21:21 05:37 11:58 POC Glucometer 241 270 317 02/26/17 16:12 POC Glucometer 246 Active Medications Generic Name Dose Route Start Last Admin Trade Name Freq PRN Reason Stop Dose Admin Acetaminophen 650 mg 02/23/17 17:32 Tylenol - PO Q6H PRN PAIN Acetylcysteine 200 mg 02/25/17 18:00 02/26/17 12:55 Mucomyst 20 Oral / Inh Use Only* NEB Not Given QIDR EMMY Albuterol Sulfate 1 amp 02/25/17 18:00 02/26/17 12:55 Ventolin 0.083% Nebulizer Soln - NEB 1 amp QIDR [facility] Administration Albuterol/Ipratropium 1 amp 02/23/17 10:22 02/26/17 16:38 Duoneb - NEB 1 amp Q4H PRN Administration SHORTNESS OF BREATH Alprazolam 0.25 mg 02/23/17 22:00 02/26/17 10:56 Xanax - PO 0.25 mg BID E[facility] Administration Baclofen 20 mg 02/23/17 14:00 02/26/17 13:50 Lioresal - PO 20 mg TID [facility] Administration Budesonide/Formoterol Fumarate 2 puff 02/23/17 10:00 02/26/17 10:56 Symbicort 160/4.5mcg - IH 2 puff BID [facility] Administration Cholecalciferol 2,000 unit 02/24/17 10:00 02/26/17 10:56 Vitamin D3 - PO 2,000 unit DAILY [facility] Administration Diltiazem HCl 60 mg 02/23/17 18:00 02/26/17 17:16 Cardizem - PO 60 mg Q6HPO [facility] Administration Diphenhydramine HCl 25 mg 02/23/17 17:32 Benadryl Oral Solution - PO Q4H PRN FOR ITCHING Doxepin HCl 25 mg 02/23/17 22:00 02/25/17 21:58 Sinequan - PO 25 mg HS [facility] Administration Eletriptan 40 mg 02/24/17 10:38 Relpax - PO Q6H PRN HEADACHE Gabapentin 300 mg 02/23/17 14:00 02/26/17 13:50 Neurontin - PO 300 mg TID [facility] Administration Heparin Sodium (Porcine) 5,000 unit 02/23/17 22:00 02/26/17 13:50 Heparin - SQ 5,000 unit TID [facility] Administration Insulin Aspart 1 vial 02/24/17 11:00 02/26/17 16:45 Novolog Vial Sliding Scale - SQ 6 units ACHS [facility] Administration Protocol Levothyroxine Sodium 25 mcg 02/23/17 10:00 02/26/17 06:30 Synthroid - PO 25 mcg DAILY@0700 [facility] Administration Methylprednisolone Sodium Succinate 60 mg 02/25/17 22:00 02/26/17 13:50 Solu-Medrol - IVPB 60 mg TID [facility] Administration Metoprolol Tartrate 25 mg 02/23/17 14:00 02/26/17 13:50 Lopressor - PO 25 mg TID [facility] Administration Multi-Ingredient Ointment 1 applic 02/24/17 10:30 02/26/17 10:57 Zinc Oxide TP 1 applic BID [facility] Administration Multivitamins/Minerals/Vitamin C 1 tab 02/23/17 10:00 02/26/17 10:56 Tab-A-Vit - PO 1 tab DAILY [facility] Administration Vortioxetine ( 1 each 02/25/17 08:00 02/26/17 08:08 Trintellix) 10 Mg PO 1 each Tablet (Pt's Own) DAILY@0800 [facility] Administration Ondansetron HCl 4 mg 02/23/17 08:18 02/25/17 16:08 Zofran Injection IVPB 4 mg Q6H PRN Administration NAUSEA Pancrelipase 3 cap 02/24/17 12:00 02/26/17 17:[address] 6,000 Units Capsule PO 3 cap TIDCM [facility] Administration Pantoprazole Sodium 40 mg 02/24/17 11:30 02/26/17 10:56 Protonix - PO Not Given DAILY [facility] Roflumilast 500 mcg 02/23/17 10:00 02/26/17 10:56 Daliresp - PO 500 mcg DAILY [facility] Administration Sucralfate 1 gm 02/24/17 14:00 02/26/17 17:17 Carafate - PO 1 gm QID [facility] Administration Assessment: 51 year old female with atrial fib, hypertension, diabetes, COPD ( home oxygen dependent), asthma, tracheostomy (now closed), uterine cancer, anxiety, depression, bipolar disorder admitted with nausea, diarrhea, productive cough, and left sided body pain. Plan: 1. Abdominal pain with Diarrhea, hx of chronic abd pain - Likely due to chronic abx use - C diff negative - PRN zofran - PO protonix 2. Acute on chronic COPD acute on chronic - Medrol 60mg q8 - Roflumilast - Mucomyst with albuterol - Duonebs prn - Start Mucinex 600mg BID 3. Bipolar/anxiety/depression - Continue psyche home meds 4. DM II - ISS, BGM ACHS 5. Proxy Atrial Fib - Metoprolol 25mg TID - Cardizem 60mg q6h 6. Constipation - x1 mineral enema tonight Visit type - Emergency Visit Emergency Visit: Yes ED Registration Date: 02/24/17 Care time: The patient presented to the Emergency Department on the above date and was hospitalized for further evaluation of their emergent condition. - New Patient This patient is new to me today: No - Critical Care Critical Care patient: No
[2017-02-26] MEDS: ELETRIPTAN HYDROBROMIDE 40 MG TABLET PO PRN (18:07)
[2017-02-26] MEDS ORDERED: DOCUSATE SODIUM 100 MG CAPSULE (FP) PO PRN (20:19)
[2017-02-26] MEDS ORDERED: ACETAMINOPHEN 500 MG TABLET (FP) PO PRN (20:20)
[2017-02-26] MEDS: ZOLPIDEM TARTRATE 5 MG TABLET PO PRN (21:48)
[2017-02-26] MEDS: guaiFENesin 600 MG TABLET.ER (FP) PO SCH (21:48)
[2017-02-26] MEDS: DOXEPIN HCL 25 MG CAPSULE PO SCH (21:49)
[2017-02-26] MEDS: ONDANSETRON 4 MG/2 ML VIAL IVPB PRN (23:43)
[2017-02-27] MEDS: ACETYLCYSTEINE 20% 200MG/ML 4 ML VIAL *FOR ORAL / INH USE ONLY NEB SCH ×4 (00:05→18:29)
[2017-02-27] MEDS: ALBUTEROL SO4 0.083% IH SOL 2.5 MG/3 ML VIAL.NEB. NEB SCH ×4 (00:05→18:30)
[2017-02-27] MEDS: HYDROmorphone HCL CARPU-JECT 1 MG/1 ML DISP.SYRIN IVPB PRN ×5 (00:48→19:36)
[2017-02-27] MEDS: METOPROLOL TARTRATE 25 MG TABLET (FP) PO SCH ×3 (06:19→21:55)
[2017-02-27] MEDS: methylPREDNISolone NA SUCC 125 MG/2 ML VIAL IVPB SCH (06:19)
[2017-02-27] MEDS: BACLOFEN 10 MG TABLET (FP) PO SCH ×3 (06:19→21:55)
[2017-02-27] MEDS: GABAPENTIN 300 MG CAPSULE (FP) PO SCH ×3 (06:19→21:55)
[2017-02-27] MEDS: dilTIAZem HCL 30 MG TABLET (FP) PO SCH ×4 (06:19→23:40)
[2017-02-27] MEDS: HEPARIN NA (PORCINE) 5,000 UNITS/ML 1ML VIAL SQ SCH ×3 (06:19→21:54)
[2017-02-27] MEDS ORDERED: INSULIN (NOVOLOG) ASPART 100 UNITS/ML 10ML VIAL ONE ×2 (06:23→11:09)
[2017-02-27] MEDS: INSULIN SLIDING SCALE (NOVOLOG) 1 VIAL SQ SCH ×4 (06:23→21:57)
[2017-02-27] MEDS: LEVOTHYROXINE NA 25 MCG TABLET (FP) PO SCH (06:27)
[2017-02-27] MEDS: LIPASE/PROTEASE/AMYLASE 6,000 UNIT CAPSULE PO SCH ×3 (08:36→16:47)
[2017-02-27] MEDS: VORTIOXETINE 10 MG PO SCH (08:39)
[2017-02-27] MEDS: PANTOPRAZOLE 40 MG TABLET (FP) PO SCH ×2 (08:41→09:22)
[2017-02-27 08:52] LABS: BASOPHIL 0.1 % (0-2.0); MCH 26.3 pg (25.7-33.7); MCHC 32.2 g/dl (32.0-36.0); MEAN CELL VOLUME 81.7 fl (80-96); MEAN PLT VOLUME 8.7 fl (7.5-11.1); NEUTROPHILS 95.2 % (42.8-82.8); PLATELET COUNT 191 K/MM3 (134-434); WHITE BLOOD COUNT 9.8 K/mm3 (4.0-10.0)
[2017-02-27 09:16] LABS: ALBUMIN 2.6 g/dl (3.4-5.0); ALK PHOS 94 U/L (45-117); ANION GAP 8 (8-16); BILIRUBIN,TOTAL 0.2 mg/dL (0.2-1.0); CALCIUM 8.2 mg/dL (8.5-10.1); CO2 29 mmol/L (21-32); CREATININE 0.6 mg/dL (0.55-1.02); GLUCOSE,RANDOM 175 mg/dL (74-106); MAGNESIUM 2.2 mg/dL (1.8-2.4); PHOSPHOROUS 2.1 mg/dL (2.5-4.9); SGOT/AST 12 U/L (15-37); SGPT/ALT 39 U/L (12-78); TOT PROT 5.5 g/dl (6.4-8.2)
[2017-02-27] MEDS: SUCRALFATE 1 GM TABLET (FP) PO SCH ×4 (09:21→22:30)
[2017-02-27] MEDS: guaiFENesin 600 MG TABLET.ER (FP) PO SCH ×2 (09:21→21:54)
[2017-02-27] MEDS: ALPRAZolam 0.25 MG TABLET PO SCH ×2 (09:21→21:55)
[2017-02-27] MEDS: BUDESONIDE/FORMETEROL FUMARATE 160/4.5 mcg INHALER IH SCH ×2 (09:22→21:54)
[2017-02-27] MEDS: MULTIVITAMINS (DAILY MVI) TABLET (FP) PO SCH (09:22)
[2017-02-27] MEDS: CHOLECALCIFEROL (VITAMIN D3) 1,000 UNIT TABLET (FP) PO SCH (09:22)
[2017-02-27] MEDS: ROFLUMILAST 500 MCG TABLET PO SCH (09:22)
[2017-02-27] MEDS: ZINC OXIDE 20% TOPICAL OINTMENT 30 GM TUBE TP SCH ×2 (09:23→22:03)
--- NOTE | 2017-02-27 13:11 | PN ---
Progress Note, Physician History of Present Illness: pulmonary alert,feeling better,less congested - Current Medication List Current Medications: Active Medications Acetaminophen (Tylenol -) 1,000 mg PO Q6H PRN PRN Reason: PAIN Acetylcysteine (Mucomyst 20 Oral / Inh Use Only*) 200 mg NEB QIDR [facility] Last Admin: 02/27/17 11:44 Dose: Not Given Albuterol Sulfate (Ventolin 0.083% Nebulizer Soln -) 1 amp NEB QIDR [facility] Last Admin: 02/27/17 11:45 Dose: 1 amp Albuterol/Ipratropium (Duoneb -) 1 amp NEB Q4H PRN PRN Reason: SHORTNESS OF BREATH Last Admin: 02/26/17 16:38 Dose: 1 amp Alprazolam (Xanax -) 0.25 mg PO BID [facility] Last Admin: 02/27/17 09:21 Dose: 0.25 mg Baclofen (Lioresal -) 20 mg PO TID [facility] Last Admin: 02/27/17 06:19 Dose: 20 mg Budesonide/Formoterol Fumarate (Symbicort 160/4.5mcg -) 2 puff IH BID [facility] Last Admin: 02/27/17 09:22 Dose: 2 puff Cholecalciferol (Vitamin D3 -) 2,000 unit PO DAILY [facility] Last Admin: 02/27/17 09:22 Dose: 2,000 unit Diltiazem HCl (Cardizem -) 60 mg PO Q6HPO [facility] Last Admin: 02/27/17 11:53 Dose: 60 mg Diphenhydramine HCl (Benadryl Oral Solution -) 25 mg PO Q4H PRN PRN Reason: FOR ITCHING Docusate Sodium (Colace -) 100 mg PO BID PRN PRN Reason: CONSTIPATION Last Admin: 02/26/17 21:49 Dose: 100 mg Doxepin HCl (Sinequan -) 25 mg PO HS [facility] Last Admin: 02/26/17 21:49 Dose: 25 mg Eletriptan (Relpax -) 40 mg PO Q6H PRN PRN Reason: HEADACHE Last Admin: 02/26/17 18:07 Dose: 40 mg Gabapentin (Neurontin -) 300 mg PO TID [facility] Last Admin: 02/27/17 06:19 Dose: 300 mg Guaifenesin (Mucinex -) 600 mg PO BID [facility] Last Admin: 02/27/17 09:21 Dose: 600 mg Guaifenesin (Robitussin -) 10 ml PO Q6H PRN PRN Reason: COUGH Heparin Sodium (Porcine) (Heparin -) 5,000 unit SQ TID [facility] Last Admin: 02/27/17 06:19 Dose: 5,000 unit Hydromorphone HCl (Dilaudid Injection -) 1 mg IVPB Q4H PRN PRN Reason: PAIN Last Admin: 02/27/17 10:17 Dose: 1 mg Insulin Aspart (Novolog Vial Sliding Scale -) 1 vial SQ ACHS [facility] PRN Reason: Protocol Last Admin: 02/27/17 11:52 Dose: 8 units Levothyroxine Sodium (Synthroid -) 25 mcg PO DAILY@0700 [facility] Last Admin: 02/27/17 06:27 Dose: 25 mcg Methylprednisolone Sodium Succinate (Solu-Medrol -) 60 mg IVPB TID [facility] Last Admin: 02/27/17 06:19 Dose: 60 mg Metoprolol Tartrate (Lopressor -) 25 mg PO TID [facility] Last Admin: 02/27/17 06:19 Dose: 25 mg Multi-Ingredient Ointment (Zinc Oxide) 1 applic TP BID [facility] Last Admin: 02/27/17 09:23 Dose: 1 applic Multivitamins/Minerals/Vitamin C (Tab-A-Vit -) 1 tab PO DAILY [facility] Last Admin: 02/27/17 09:22 Dose: 1 tab Vortioxetine ( Trintellix) 10 Mg Tablet (Pt's Own) 1 each PO DAILY@0800 [facility] Last Admin: 02/27/17 08:39 Dose: 1 each Ondansetron HCl (Zofran Injection) 4 mg IVPB Q6H PRN PRN Reason: NAUSEA Last Admin: 02/26/17 23:43 Dose: 4 mg Pancrelipase (Creon Dr 6,000 Units Capsule) 3 cap PO TIDCM [facility] Last Admin: 02/27/17 11:54 Dose: 3 cap Pantoprazole Sodium (Protonix -) 40 mg PO DAILY [facility] Last Admin: 02/27/17 09:22 Dose: Not Given Roflumilast (Daliresp -) 500 mcg PO DAILY [facility] Last Admin: 02/27/17 09:22 Dose: 500 mcg Sucralfate (Carafate -) 1 gm PO QID [facility] Last Admin: 02/27/17 09:21 Dose: 1 gm Zolpidem Tartrate (Ambien -) 10 mg PO HS PRN PRN Reason: INSOMNIA Last Admin: 02/26/17 21:48 Dose: 10 mg - Objective Vital Signs: Vital Signs Temperature 98.0 F 02/27/17 10:00 Pulse Rate 71 02/27/17 11:44 Respiratory Rate 80 H 02/27/17 10:00 Blood Pressure 126/70 02/27/17 10:00 O2 Sat by Pulse Oximetry (%) 97 02/27/17 11:44 Constitutional: Yes: Well Nourished, Calm Eyes: Yes: WNL HENT: Yes: WNL Neck: Yes: WNL Cardiovascular: Yes: Pulse Irregular, S1, S2 Respiratory: Yes: Wheezes (less wheezes bilaterally) Gastrointestinal: Yes: Normal Bowel Sounds, Soft Extremities: Yes: WNL Edema: No Labs: CBC, BMP 02/27/17 08:40 02/27/17 08:40 Assessment/Plan Problem List - Problems (1) Acute exacerbation of COPD with asthma Code(s): J44.1 - CHRONIC OBSTRUCTIVE PULMONARY DISEASE W (ACUTE) EXACERBATION J45.901 - UNSPECIFIED ASTHMA WITH (ACUTE) EXACERBATION (2) Bronchitis Code(s): J40 - BRONCHITIS, NOT SPECIFIED ACUTE OR CHRONIC (3) Diarrhea in adult patient Code(s): R19.7 - DIARRHEA, UNSPECIFIED (4) Anxiety Code(s): F41.9 - ANXIETY DISORDER, UNSPECIFIED (5) Bipolar 2 disorder Code(s): F31.81 - BIPOLAR II DISORDER (6) COPD (chronic obstructive pulmonary disease) case management patient Code(s): IBH2430 - (7) Chronic back pain Code(s): M54.9 - DORSALGIA, UNSPECIFIED G89.29 - OTHER CHRONIC PAIN (8) Depression with anxiety Code(s): F41.8 - OTHER SPECIFIED ANXIETY DISORDERS (9) Gastritis Code(s): K29.70 - GASTRITIS, UNSPECIFIED, WITHOUT BLEEDING (10) HTN (hypertension) Code(s): I10 - ESSENTIAL (PRIMARY) HYPERTENSION Qualifiers: (11) Hyperlipidemia Code(s): E78.5 - HYPERLIPIDEMIA, UNSPECIFIED (12) Opioid dependence Code(s): F11.20 - OPIOID DEPENDENCE, UNCOMPLICATED (13) Paroxysmal atrial fibrillation Code(s): I48.0 - PAROXYSMAL ATRIAL FIBRILLATION (14) Chronic pain Code(s): G89.29 - OTHER CHRONIC PAIN (15) Nausea & vomiting Code(s): R11.2 - NAUSEA WITH VOMITING, UNSPECIFIED (16) Vomiting Code(s): R11.10 - VOMITING, UNSPECIFIED Qualifiers: Vomiting type: unspecified Vomiting Intractability: unspecified Nausea presence: with nausea Qualified Code(s): R11.2 - Nausea with vomiting , unspecified (17) Afib Code(s): I48.91 - UNSPECIFIED ATRIAL FIBRILLATION (18) Anemia Code(s): D64.9 - ANEMIA, UNSPECIFIED (19) GERD (gastroesophageal reflux disease) Code(s): K21.9 - GASTRO-ESOPHAGEAL REFLUX DISEASE WITHOUT ESOPHAGITIS (20) Hemoptysis Code(s): R04.2 - HEMOPTYSIS (21) Leukocytosis Code(s): D72.829 - ELEVATED WHITE BLOOD CELL COUNT, UNSPECIFIED Qualifiers: Leukocytosis type: unspecified Qualified Code(s): D72.829 - Elevated white blood cell count, unspecified (22) Mood disorder Code(s): F39 - UNSPECIFIED MOOD [AFFECTIVE] DISORDER (23) Neuropathy Code(s): G62.9 - POLYNEUROPATHY, UNSPECIFIED Assessment/Plan Taper Medrol BD TX O2 as needed Symbicort Daliresp mucomyst DR RUFFIN
[2017-02-27] MEDS: methylPREDNISolone NA SUCC 40 MG/1 ML VIAL IVPB SCH ×2 (14:02→21:54)
[2017-02-27] MEDS: ALBUTEROL SO4 2.5/IPRATROPIUM 0.5 INH SOL 3 ML VIAL.NEB. NEB PRN ×2 (16:05→19:43)
[2017-02-27] MEDS: NYSTATIN 500,000 UNITS/5 ML SUSPENSION PO SCH ×2 (17:33→23:40)
[2017-02-27] MEDS: ELETRIPTAN HYDROBROMIDE 40 MG TABLET PO PRN (17:34)
--- NOTE | 2017-02-27 18:41 | PN ---
Physical Exam: SUBJECTIVE: Patient seen and examined at bedside. Complaining of bilateral hip pain from dropping down to sit on the commode too quickly. OBJECTIVE: Vital Signs Period Temp Pulse Resp BP Sys/Dan Pulse Ox Last 24 Hr 97.9 F-98.1 F 69-95 20-80 126-138/65-84 96-97 GENERAL: The patient is awake, alert, and fully oriented, in no acute distress. HEAD: Normal with no signs of trauma. Round, protuberant face. EYES: PERRL, extraocular movements intact, sclera anicteric, conjunctiva clear. No ptosis. LUNGS: Rhonchi, wheezes HEART: Regular rate and rhythm, S1, S2 without murmur, rub or gallop. ABDOMEN: Soft, nontender, nondistended, normoactive bowel sounds, no guarding, no rebound, no hepatosplenomegaly, no masses. EXTREMITIES: 2+ pulses, warm, well-perfused, no edema. NEUROLOGICAL: Cranial nerves II through XII grossly intact. Normal speech, gait not observed. Laboratory Results - last 24 hr 02/26/17 02/27/17 02/27/17 22:02 06:21 08:40 WBC 9.8 D RBC 3.55 L Hgb 9.3 L D Hct 29.0 L MCV 81.7 MCHC 32.2 RDW 18.0 H Plt Count 191 MPV 8.7 Neutrophils % 95.2 H Lymphocytes % 2.4 L D Monocytes % 2.3 L Eosinophils % 0.0 Basophils % 0.1 Sodium Potassium Chloride Carbon Dioxide Anion Gap BUN Creatinine Creat Clearance w eGFR POC Glucometer 200 277 Random Glucose Calcium Phosphorus Magnesium Total Bilirubin AST ALT Alkaline Phosphatase Total Protein Albumin 02/27/17 02/27/17 02/27/17 08:40 11:04 16:49 WBC RBC Hgb Hct MCV MCHC RDW Plt Count MPV Neutrophils % Lymphocytes % Monocytes % Eosinophils % Basophils % Sodium 141 Potassium 4.2 Chloride 104 Carbon Dioxide 29 Anion Gap 8 BUN 23 H D Creatinine 0.6 Creat Clearance w eGFR > 60 POC Glucometer 325 195 Random Glucose 175 H Calcium 8.2 L Phosphorus 2.1 L D Magnesium 2.2 D Total Bilirubin 0.2 D AST 12 L D ALT 39 Alkaline Phosphatase 94 Total Protein 5.5 L Albumin 2.6 L Active Medications Generic Name Dose Route Start Last Admin Trade Name Freq PRN Reason Stop Dose Admin Acetaminophen 1,000 mg 02/26/17 20:20 Tylenol - PO Q6H PRN PAIN Acetylcysteine 200 mg 02/25/17 18:00 02/27/17 11:44 Mucomyst 20 Oral / Inh Use Only* NEB Not Given QIDR [facility] Albuterol Sulfate 1 amp 02/25/17 18:00 02/27/17 11:45 Ventolin 0.083% Nebulizer Soln - NEB 1 amp QIDR [facility] Administration Albuterol/Ipratropium 1 amp 02/23/17 10:22 02/27/17 16:05 Duoneb - NEB 1 amp Q4H PRN Administration SHORTNESS OF BREATH Alprazolam 0.25 mg 02/23/17 22:00 02/27/17 09:21 Xanax - PO 0.25 mg BID [facility] Administration Baclofen 20 mg 02/23/17 14:00 02/27/17 14:03 Lioresal - PO 20 mg TID [facility] Administration Budesonide/Formoterol Fumarate 2 puff 02/23/17 10:00 02/27/17 09:22 Symbicort 160/4.5mcg - IH 2 puff BID [facility] Administration Cholecalciferol 2,000 unit 02/24/17 10:00 02/27/17 09:22 Vitamin D3 - PO 2,000 unit DAILY [facility] Administration Diltiazem HCl 60 mg 02/23/17 18:00 02/27/17 17:16 Cardizem - PO 60 mg Q6HPO [facility] Administration Diphenhydramine HCl 25 mg 02/23/17 17:32 Benadryl Oral Solution - PO Q4H PRN FOR ITCHING Docusate Sodium 100 mg 02/26/17 20:19 02/26/17 21:49 Colace - PO 100 mg BID PRN Administration CONSTIPATION Doxepin HCl 25 mg 02/23/17 22:00 02/26/17 21:49 Sinequan - PO 25 mg HS [facility] Administration Eletriptan 40 mg 02/24/17 10:38 02/26/17 18:07 Relpax - PO 40 mg Q6H PRN Administration HEADACHE Gabapentin 300 mg 02/23/17 14:00 02/27/17 14:03 Neurontin - PO 300 mg TID [facility] Administration Guaifenesin 600 mg 02/26/17 22:00 02/27/17 09:21 Mucinex - PO 600 mg BID [facility] Administration Guaifenesin 10 ml 02/26/17 17:39 Robitussin - PO Q6H PRN COUGH Heparin Sodium (Porcine) 5,000 unit 02/23/17 22:00 02/27/17 14:03 Heparin - SQ 5,000 unit TID [facility] Administration Hydromorphone HCl 1 mg 02/26/17 20:16 02/27/17 15:29 Dilaudid Injection - IVPB 1 mg Q4H PRN Administration PAIN Insulin Aspart 1 vial 02/24/17 11:00 02/27/17 16:51 Novolog Vial Sliding Scale - SQ 2 units ACHS [facility] Administration Protocol Levothyroxine Sodium 25 mcg 02/23/17 10:00 02/27/17 06:27 Synthroid - PO 25 mcg DAILY@0700 [facility] Administration Methylprednisolone Sodium Succinate 40 mg 02/27/17 14:00 02/27/17 14:02 Solu-Medrol - IVPB 40 mg TID [facility] Administration Metoprolol Tartrate 25 mg 02/23/17 14:00 02/27/17 14:03 Lopressor - PO 25 mg TID [facility] Administration Multi-Ingredient Ointment 1 applic 02/24/17 10:30 02/27/17 09:23 Zinc Oxide TP 1 applic BID [facility] Administration Multivitamins/Minerals/Vitamin C 1 tab 02/23/17 10:00 02/27/17 09:22 Tab-A-Vit - PO 1 tab DAILY [facility] Administration Vortioxetine ( 1 each 02/25/17 08:00 02/27/17 08:39 Trintellix) 10 Mg PO 1 each Tablet (Pt's Own) DAILY@0800 [facility] Administration Nystatin 500,000 units 02/27/17 18:00 Nystatin Oral Suspension - PO Q6HPO [facility] Ondansetron HCl 4 mg 02/23/17 08:18 02/26/17 23:43 Zofran Injection IVPB 4 mg Q6H PRN Administration NAUSEA Pancrelipase 3 cap 02/24/17 12:00 02/27/17 16:[address] 6,000 Units Capsule PO 3 cap TIDCM [facility] Administration Pantoprazole Sodium 40 mg 02/24/17 11:30 02/27/17 09:22 Protonix - PO Not Given DAILY [facility] Roflumilast 500 mcg 02/23/17 10:00 02/27/17 09:22 Daliresp - PO 500 mcg DAILY [facility] Administration Sucralfate 1 gm 02/24/17 14:00 02/27/17 17:16 Carafate - PO 1 gm QID [facility] Administration Zolpidem Tartrate 10 mg 02/26/17 20:21 02/26/17 21:48 Ambien - PO 10 mg HS PRN Administration INSOMNIA ASSESSMENT/PLAN 51 year-old female with a PMH of HTN, paroxysmal afib, NIDDM, asthma/COPD O2 dependent, tracheostomy (now closed), uterine cancer, anxiety, depression, bipolar disorder admitted with nausea, diarrhea, productive cough, and left sided body pain. Abdominal pain, chronic --likely due to chronic antibiotic use --complains of diarrhea and constipation; today just right -- C diff negative --continue protonix --Zofran PRN COPD exacerbation --taper IV steroids --nebs Bipolar/anxiety/depression --continue psych home meds DM II --Novolog sliding scale coverage Paroxysmal afib --continue metoprolol and cardizem for rate control --[id number] score 3 ---not on anticoagulation secondary to a previous GI bleed F/E/N Fluids: PO intake adequate Electrolytes: replete as indicated Nutrition: low sodium DVT prophylaxis: subq heparin, oob, ambulation PT evaluation; daily PT Dispo: continues to require inpatient care. Full code. Visit type - Emergency Visit Emergency Visit: Yes ED Registration Date: 02/24/17 Care time: The patient presented to the Emergency Department on the above date and was hospitalized for further evaluation of their emergent condition. - New Patient This patient is new to me today: Yes Date on this admission: 02/27/17 - Critical Care Critical Care patient: No
[2017-02-27] MEDS: ZOLPIDEM TARTRATE 5 MG TABLET PO PRN (21:54)
[2017-02-27] MEDS: DOXEPIN HCL 25 MG CAPSULE PO SCH (22:30)
[2017-02-28] MEDS: ALBUTEROL SO4 0.083% IH SOL 2.5 MG/3 ML VIAL.NEB. NEB SCH ×5 (00:28→23:40)
[2017-02-28] MEDS: ACETYLCYSTEINE 20% 200MG/ML 4 ML VIAL *FOR ORAL / INH USE ONLY NEB SCH ×5 (00:28→23:40)
[2017-02-28] MEDS: HYDROmorphone HCL CARPU-JECT 1 MG/1 ML DISP.SYRIN IVPB PRN ×5 (00:39→22:45)
[2017-02-28] MEDS: ALBUTEROL SO4 2.5/IPRATROPIUM 0.5 INH SOL 3 ML VIAL.NEB. NEB PRN ×4 (03:16→19:32)
[2017-02-28] MEDS ORDERED: ALBUTEROL SO4 2.5/IPRATROPIUM 0.5 INH SOL 3 ML VIAL.NEB. NEB ONE (04:55)
[2017-02-28] MEDS: BACLOFEN 10 MG TABLET (FP) PO SCH ×3 (05:48→21:41)
[2017-02-28] MEDS: METOPROLOL TARTRATE 25 MG TABLET (FP) PO SCH ×3 (05:48→21:41)
[2017-02-28] MEDS: GABAPENTIN 300 MG CAPSULE (FP) PO SCH ×3 (05:48→21:44)
[2017-02-28] MEDS: HEPARIN NA (PORCINE) 5,000 UNITS/ML 1ML VIAL SQ SCH ×3 (05:48→21:42)
[2017-02-28] MEDS: methylPREDNISolone NA SUCC 40 MG/1 ML VIAL IVPB SCH ×3 (05:48→21:42)
[2017-02-28] MEDS: dilTIAZem HCL 30 MG TABLET (FP) PO SCH ×3 (05:48→18:05)
[2017-02-28] MEDS: NYSTATIN 500,000 UNITS/5 ML SUSPENSION PO SCH ×3 (05:49→18:05)
[2017-02-28] MEDS: LEVOTHYROXINE NA 25 MCG TABLET (FP) PO SCH (05:59)
[2017-02-28] MEDS: INSULIN SLIDING SCALE (NOVOLOG) 1 VIAL SQ SCH ×4 (05:59→21:42)
[2017-02-28] MEDS ORDERED: INSULIN (NOVOLOG) ASPART 100 UNITS/ML 10ML VIAL ONE ×3 (07:09→21:35)
[2017-02-28] MEDS: VORTIOXETINE 10 MG PO SCH (07:54)
[2017-02-28] MEDS: LIPASE/PROTEASE/AMYLASE 6,000 UNIT CAPSULE PO SCH ×3 (08:42→17:33)
[2017-02-28] MEDS: ONDANSETRON 4 MG/2 ML VIAL IVPB PRN (08:42)
[2017-02-28] MEDS ORDERED: PT OWN MED DRAWER 7, Y5N ONE ×7 (09:20→21:38)
[2017-02-28] MEDS: ALPRAZolam 0.25 MG TABLET PO SCH ×2 (09:22→21:41)
[2017-02-28] MEDS: CHOLECALCIFEROL (VITAMIN D3) 1,000 UNIT TABLET (FP) PO SCH (09:22)
[2017-02-28] MEDS: SUCRALFATE 1 GM TABLET (FP) PO SCH ×4 (09:22→21:44)
[2017-02-28] MEDS: guaiFENesin 600 MG TABLET.ER (FP) PO SCH ×2 (09:22→21:41)
[2017-02-28] MEDS: MULTIVITAMINS (DAILY MVI) TABLET (FP) PO SCH (09:22)
[2017-02-28] MEDS: BUDESONIDE/FORMETEROL FUMARATE 160/4.5 mcg INHALER IH SCH ×2 (09:22→21:41)
[2017-02-28] MEDS: PANTOPRAZOLE 40 MG TABLET (FP) PO SCH (09:22)
[2017-02-28] MEDS: ZINC OXIDE 20% TOPICAL OINTMENT 30 GM TUBE TP SCH ×2 (09:29→21:45)
[2017-02-28] MEDS: ROFLUMILAST 500 MCG TABLET PO SCH (09:31)
[2017-02-28] MEDS ORDERED: ALPRAZolam 0.25 MG TABLET PO ONE (12:03)
--- NOTE | 2017-02-28 12:11 | PN ---
Physical Exam: SUBJECTIVE: Patient seen and examined. States she is having increased shortness of breath. OBJECTIVE: On exam: bilateral scattered rhonchi 99% on 3 liters of oxygen Will give extra dose of xanax 0.25mg x 1 Venti mask @ 50% x 1 hour and monitor Vital Signs Period Temp Pulse Resp BP Sys/Dan Pulse Ox Last 24 Hr 98.1 F-99.3 F 69-89 20-20 126-137/65-70 96-99 GENERAL: The patient is awake, alert, and fully oriented, in no acute distress. HEAD: Normal with no signs of trauma. EYES: PERRL, extraocular movements intact, sclera anicteric, conjunctiva clear. No ptosis. ENT: Ears normal, nares patent, oropharynx clear without exudates, moist mucous membranes. NECK: Trachea midline, full range of motion, supple. LUNGS: expiratory wheezing, rhonchi on anterior lungs HEART: Regular rate and rhythm, S1, S2 without murmur, rub or gallop. ABDOMEN: abdominal pain improving, having diarrhea EXTREMITIES: well-perfused, no edema. NEUROLOGICAL: Normal speech, gait not observed. PSYCH: Normal mood, normal affect. SKIN: Warm, dry, normal turgor, no rashes or lesions noted Laboratory Results - last 24 hr 02/27/17 02/27/17 02/28/17 16:49 21:55 05:54 POC Glucometer 195 274 278 Active Medications Generic Name Dose Route Start Last Admin Trade Name Freq PRN Reason Stop Dose Admin Acetaminophen 1,000 mg 02/26/17 20:20 Tylenol - PO Q6H PRN PAIN Acetylcysteine 200 mg 02/25/17 18:00 02/28/17 11:36 Mucomyst 20 Oral / Inh Use Only* NEB Not Given QIDR [facility] Albuterol Sulfate 1 amp 02/25/17 18:00 02/28/17 11:36 Ventolin 0.083% Nebulizer Soln - NEB 1 amp QIDR [facility] Administration Albuterol/Ipratropium 1 amp 02/23/17 10:22 02/28/17 10:15 Duoneb - NEB 1 amp Q4H PRN Administration SHORTNESS OF BREATH Alprazolam 0.25 mg 02/23/17 22:00 02/28/17 09:22 Xanax - PO 0.25 mg BID [facility] Administration Alprazolam 0.25 mg 02/28/17 12:03 Xanax - PO 02/28/17 12:04 ONCE ONE Baclofen 20 mg 02/23/17 14:00 02/28/17 05:48 Lioresal - PO 20 mg TID [facility] Administration Budesonide/Formoterol Fumarate 2 puff 02/23/17 10:00 02/28/17 09:22 Symbicort 160/4.5mcg - IH 2 puff BID [facility] Administration Cholecalciferol 2,000 unit 02/24/17 10:00 02/28/17 09:22 Vitamin D3 - PO 2,000 unit DAILY [facility] Administration Diltiazem HCl 60 mg 02/23/17 18:00 02/28/17 05:48 Cardizem - PO 60 mg Q6HPO [facility] Administration Diphenhydramine HCl 25 mg 02/23/17 17:32 Benadryl Oral Solution - PO Q4H PRN FOR ITCHING Docusate Sodium 100 mg 02/26/17 20:19 02/26/17 21:49 Colace - PO 100 mg BID PRN Administration CONSTIPATION Doxepin HCl 25 mg 02/23/17 22:00 02/27/17 22:30 Sinequan - PO 25 mg HS [facility] Administration Eletriptan 40 mg 02/24/17 10:38 02/27/17 17:34 Relpax - PO 40 mg Q6H PRN Administration HEADACHE Gabapentin 300 mg 02/23/17 14:00 02/28/17 05:48 Neurontin - PO 300 mg TID [facility] Administration Guaifenesin 600 mg 02/26/17 22:00 02/28/17 09:22 Mucinex - PO 600 mg BID [facility] Administration Guaifenesin 10 ml 02/26/17 17:39 02/28/17 05:52 Robitussin - PO 10 ml Q6H PRN Administration COUGH Heparin Sodium (Porcine) 5,000 unit 02/23/17 22:00 02/28/17 05:48 Heparin - SQ 5,000 unit TID [facility] Administration Hydromorphone HCl 1 mg 02/26/17 20:16 02/28/17 06:45 Dilaudid Injection - IVPB 1 mg Q4H PRN Administration PAIN Insulin Aspart 1 vial 02/24/17 11:00 02/28/17 05:59 Novolog Vial Sliding Scale - SQ 6 units ACHS [facility] Administration Protocol Levothyroxine Sodium 25 mcg 02/23/17 10:00 02/28/17 05:59 Synthroid - PO 25 mcg DAILY@0700 [facility] Administration Methylprednisolone Sodium Succinate 40 mg 02/27/17 14:00 02/28/17 05:48 Solu-Medrol - IVPB 40 mg TID [facility] Administration Metoprolol Tartrate 25 mg 02/23/17 14:00 02/28/17 05:48 Lopressor - PO 25 mg TID [facility] Administration Multi-Ingredient Ointment 1 applic 02/24/17 10:30 02/28/17 09:29 Zinc Oxide TP 1 applic BID [facility] Administration Multivitamins/Minerals/Vitamin C 1 tab 02/23/17 10:00 02/28/17 09:22 Tab-A-Vit - PO 1 tab DAILY [facility] Administration Vortioxetine ( 1 each 02/25/17 08:00 02/28/17 07:54 Trintellix) 10 Mg PO 1 each Tablet (Pt's Own) DAILY@0800 [facility] Administration Nystatin 500,000 units 02/27/17 18:00 02/28/17 05:49 Nystatin Oral Suspension - PO 500,000 units Q6HPO [facility] Administration Ondansetron HCl 4 mg 02/23/17 08:18 02/28/17 08:42 Zofran Injection IVPB 4 mg Q6H PRN Administration NAUSEA Pancrelipase 3 cap 02/24/17 12:00 02/28/17 08:[address] 6,000 Units Capsule PO 3 cap TIDCM [facility] Administration Pantoprazole Sodium 40 mg 02/24/17 11:30 02/28/17 09:22 Protonix - PO 40 mg DAILY [facility] Administration Roflumilast 500 mcg 02/23/17 10:00 02/28/17 09:31 Daliresp - PO 500 mcg DAILY [facility] Administration Sucralfate 1 gm 02/24/17 14:00 02/28/17 09:22 Carafate - PO 1 gm QID [facility] Administration Zolpidem Tartrate 10 mg 02/26/17 20:21 02/27/17 21:54 Ambien - PO 10 mg HS PRN Administration INSOMNIA ASSESSMENT/PLAN: Patient is a 51 year old female with a past medical history of proximal atrial fib, hypertension, diabetes, COPD (home oxygen dependent), asthma, tracheostomy , uterine cancer, anxiety, depression, bipolar disorder. She presents to the ED on 02/23/2017 with nausea, diarrhea, productive cough, and left sided body pain since yesterday. She states she is currently on doxycycline, but reports having left lower sided body aches and diarrhea since taking this medication. She reports her cough has been persistent and productive of yellow sputum. She states the cough keeps her up at night. She was admitted to [facility] with c/o of abdominal pain, diarrhea and acute COPD exacerbation. Imaging: Chest Xray 02/23/2017 - lungs better aerated - increased markings diminished GI: Abdominal pain with Diarrhea - likely secondary to antibiotics Assessment/Plan: Was on outpatient antibiotics of Doxycycline Rule out infectious vs. inflammatory cause On protonix PO, Zofran PRN Stool for c diff negative, Immodium x 1 today, assess for improvement Currently tolerating her diet, denies any nausea on exam GI following, diet recommendations made Pulmonary: COPD/Asthma - acute on chronic Assessment/Plan: Patient with expiratory scattered wheezes, on 2-3 liters of nasal cannula Has trach site, c/d/i, maintain O2 sat >88% On Solumedrol 40mg IV TID, taper per pulmonary Albuterol PRN, Symbicort Monitor off antibiotics Pulmonary following Psyche Bipolar/anxiety/depression Assessment/Plan: continue psyche home meds Endocrine: Diabetes mellitus - chronic - elevated Assessment/Plan: Novolog sliding scale (adjusted for tighter control), added Levemir 5 units @ HS Monitor BGMs while on Solumedrol Cardiology: Proxy Atrial Fib Currently in Sinus rhythm On lopressor PO, Cardizem FEN Fluid: Tolerating PO Electrolytes: within normal limits Nutrition: Diabetic diet Prophylaxis DVT: SCD, heparin SQ GI: Protonix Disposition: Discharge back to [facility] when stable. Full Code. Visit type - Emergency Visit Emergency Visit: Yes ED Registration Date: 02/24/17 Care time: The patient presented to the Emergency Department on the above date and was hospitalized for further evaluation of their emergent condition. - New Patient This patient is new to me today: No - Critical Care Critical Care patient: No - Discharge Referral Referred to [facility] Med P.C.: No
--- NOTE | 2017-02-28 13:07 | PN ---
Progress Note (short form) - Note Progress Note: PULMONARY WELL KNOWN TO OUR PULMONARY SERVICE WAS HOME TWO DAYS AFTER PROLONGED STAY AT SNF DEVELOPED DIARRHEA AND CHEST CONGESTION VSS/AFEBRILE ANICTERIC B/L RHONCHI S1S2 BS+ SOFT NO EDEMA LABS/MEDS/NOTES/MICRO/IMAGING REVIEWED Problem List (1) Acute exacerbation of COPD with asthma Code(s): J44.1 - CHRONIC OBSTRUCTIVE PULMONARY DISEASE W (ACUTE) EXACERBATION J45.901 - UNSPECIFIED ASTHMA WITH (ACUTE) EXACERBATION (2) Bronchitis Code(s): J40 - BRONCHITIS, NOT SPECIFIED ACUTE OR CHRONIC (3) Diarrhea in adult patient Code(s): R19.7 - DIARRHEA, UNSPECIFIED (4) Anxiety Code(s): F41.9 - ANXIETY DISORDER, UNSPECIFIED (5) Bipolar 2 disorder Code(s): F31.81 - BIPOLAR II DISORDER (6) COPD (chronic obstructive pulmonary disease) case management patient Code(s): [id number] - (7) Chronic back pain Code(s): M54.9 - DORSALGIA, UNSPECIFIED G89.29 - OTHER CHRONIC PAIN (8) Depression with anxiety Code(s): F41.8 - OTHER SPECIFIED ANXIETY DISORDERS (9) Gastritis Code(s): K29.70 - GASTRITIS, UNSPECIFIED, WITHOUT BLEEDING (10) HTN (hypertension) Code(s): I10 - ESSENTIAL (PRIMARY) HYPERTENSION Qualifiers: (11) Hyperlipidemia Code(s): E78.5 - HYPERLIPIDEMIA, UNSPECIFIED (12) Opioid dependence Code(s): F11.20 - OPIOID DEPENDENCE, UNCOMPLICATED (13) Paroxysmal atrial fibrillation Code(s): I48.0 - PAROXYSMAL ATRIAL FIBRILLATION (14) Chronic pain Code(s): G89.29 - OTHER CHRONIC PAIN (15) Nausea & vomiting Code(s): R11.2 - NAUSEA WITH VOMITING, UNSPECIFIED (16) Vomiting Code(s): R11.10 - VOMITING, UNSPECIFIED Qualifiers: Vomiting type: unspecified Vomiting Intractability: unspecified Nausea presence: with nausea Qualified Code(s): R11.2 - Nausea with vomiting , unspecified (17) Afib Code(s): I48.91 - UNSPECIFIED ATRIAL FIBRILLATION (18) Anemia Code(s): D64.9 - ANEMIA, UNSPECIFIED (19) GERD (gastroesophageal reflux disease) Code(s): K21.9 - GASTRO-ESOPHAGEAL REFLUX DISEASE WITHOUT ESOPHAGITIS (20) Hemoptysis Code(s): R04.2 - HEMOPTYSIS (21) Leukocytosis Code(s): D72.829 - ELEVATED WHITE BLOOD CELL COUNT, UNSPECIFIED Qualifiers: Leukocytosis type: unspecified Qualified Code(s): D72.829 - Elevated white blood cell count, unspecified (22) Mood disorder Code(s): F39 - UNSPECIFIED MOOD [AFFECTIVE] DISORDER (23) Neuropathy Code(s): G62.9 - POLYNEUROPATHY, UNSPECIFIED Assessment/Plan Taper Medrol as required BD TX O2 as needed Symbicort Daliresp mucomyst consider imodium if diarrhea persists Sreedhar SEXTON MD
[2017-02-28] MEDS ORDERED: LOPERAMIDE HCL 2 MG CAPSULE PO ONE (14:00)
[2017-02-28] MEDS: ELETRIPTAN HYDROBROMIDE 40 MG TABLET PO PRN (14:55)
[2017-02-28] MEDS: ZOLPIDEM TARTRATE 5 MG TABLET PO PRN (21:41)
[2017-02-28] MEDS: DOXEPIN HCL 25 MG CAPSULE PO SCH (21:41)
[2017-02-28] MEDS: INSULIN DETEMIR 100 UNITS/ML MDV SQ SCH (21:42)
[2017-03-01] MEDS: NYSTATIN 500,000 UNITS/5 ML SUSPENSION PO SCH ×5 (00:09→23:59)
[2017-03-01] MEDS: dilTIAZem HCL 30 MG TABLET (FP) PO SCH ×4 (00:09→18:01)
[2017-03-01] MEDS: ALBUTEROL SO4 2.5/IPRATROPIUM 0.5 INH SOL 3 ML VIAL.NEB. NEB SCH ×2 (01:00→01:18)
[2017-03-01] MEDS: HYDROmorphone HCL CARPU-JECT 1 MG/1 ML DISP.SYRIN IVPB PRN ×4 (02:48→20:11)
[2017-03-01] MEDS: ALBUTEROL SO4 0.083% IH SOL 2.5 MG/3 ML VIAL.NEB. NEB SCH ×3 (06:00→18:26)
[2017-03-01] MEDS: ACETYLCYSTEINE 20% 200MG/ML 4 ML VIAL *FOR ORAL / INH USE ONLY NEB SCH ×3 (06:00→18:26)
[2017-03-01] MEDS: HEPARIN NA (PORCINE) 5,000 UNITS/ML 1ML VIAL SQ SCH ×3 (06:22→21:39)
[2017-03-01] MEDS: methylPREDNISolone NA SUCC 40 MG/1 ML VIAL IVPB SCH ×4 (06:22→21:38)
[2017-03-01] MEDS: LEVOTHYROXINE NA 25 MCG TABLET (FP) PO SCH (06:22)
[2017-03-01] MEDS: INSULIN SLIDING SCALE (NOVOLOG) 1 VIAL SQ SCH ×4 (06:23→21:39)
[2017-03-01] MEDS: BACLOFEN 10 MG TABLET (FP) PO SCH ×3 (06:23→21:38)
[2017-03-01] MEDS: METOPROLOL TARTRATE 25 MG TABLET (FP) PO SCH ×3 (06:23→21:38)
[2017-03-01] MEDS: GABAPENTIN 300 MG CAPSULE (FP) PO SCH ×3 (06:23→21:38)
[2017-03-01] MEDS ORDERED: INSULIN (NOVOLOG) ASPART 100 UNITS/ML 10ML VIAL ONE ×3 (06:33→21:33)
[2017-03-01] MEDS: ELETRIPTAN HYDROBROMIDE 40 MG TABLET PO PRN ×2 (07:39→21:41)
[2017-03-01] MEDS: ALBUTEROL SO4 2.5/IPRATROPIUM 0.5 INH SOL 3 ML VIAL.NEB. NEB PRN ×2 (08:15→14:13)
[2017-03-01] MEDS ORDERED: PT OWN MED DRAWER 7, Y5N ONE ×7 (08:25→21:32)
[2017-03-01] MEDS: VORTIOXETINE 10 MG PO SCH (08:26)
[2017-03-01] MEDS: LIPASE/PROTEASE/AMYLASE 6,000 UNIT CAPSULE PO SCH ×3 (08:26→18:00)
[2017-03-01] MEDS: PANTOPRAZOLE 40 MG TABLET (FP) PO SCH ×2 (08:30→09:13)
[2017-03-01] MEDS: guaiFENesin 600 MG TABLET.ER (FP) PO SCH ×2 (09:07→21:38)
[2017-03-01] MEDS: SUCRALFATE 1 GM TABLET (FP) PO SCH ×4 (09:07→21:39)
[2017-03-01] MEDS: BUDESONIDE/FORMETEROL FUMARATE 160/4.5 mcg INHALER IH SCH ×2 (09:07→21:40)
[2017-03-01] MEDS: ROFLUMILAST 500 MCG TABLET PO SCH (09:07)
[2017-03-01] MEDS: MULTIVITAMINS (DAILY MVI) TABLET (FP) PO SCH (09:08)
[2017-03-01] MEDS: CHOLECALCIFEROL (VITAMIN D3) 1,000 UNIT TABLET (FP) PO SCH (09:08)
[2017-03-01] MEDS: ALPRAZolam 0.25 MG TABLET PO SCH ×3 (09:09→21:38)
[2017-03-01] MEDS: ZINC OXIDE 20% TOPICAL OINTMENT 30 GM TUBE TP SCH ×2 (09:10→21:40)
--- NOTE | 2017-03-01 09:36 | PN ---
Physical Exam: SUBJECTIVE: Patient seen and examined. States she is feeling short of breath, more so today. OBJECTIVE: ABG ordered Xanax 0.25mg x 1 for anxiety Duoneb treatment x 1 for shortness of breath Vital Signs Period Temp Pulse Resp BP Sys/Dan Pulse Ox Last 24 Hr 97.6 F-98.9 F 78-100 18-20 124-146/68-91 99-99 GENERAL: The patient is awake, alert, and fully oriented, in no acute distress. HEAD: Normal with no signs of trauma. EYES: PERRL, extraocular movements intact, sclera anicteric, conjunctiva clear. No ptosis. ENT: Ears normal, nares patent, oropharynx clear without exudates, moist mucous membranes. NECK: Trachea midline, full range of motion, supple. LUNGS: expiratory wheezing, rhonchi on anterior lungs HEART: Regular rate and rhythm, S1, S2 without murmur, rub or gallop. ABDOMEN: abdominal pain improving EXTREMITIES: well-perfused, no edema. NEUROLOGICAL: Normal speech, gait not observed. PSYCH: Normal mood, normal affect. SKIN: Warm, dry, normal turgor, no rashes or lesions noted Laboratory Results - last 24 hr 02/28/17 02/28/17 02/28/17 11:58 16:37 20:49 POC Glucometer 280 200 261 03/01/17 05:48 POC Glucometer 219 Active Medications Generic Name Dose Route Start Last Admin Trade Name Freq PRN Reason Stop Dose Admin Acetaminophen 1,000 mg 02/26/17 20:20 Tylenol - PO Q6H PRN PAIN Acetylcysteine 200 mg 02/25/17 18:00 03/01/17 06:00 Mucomyst 20 Oral / Inh Use Only* NEB Not Given QIDR EMMY Albuterol Sulfate 1 amp 02/25/17 18:00 03/01/17 06:00 Ventolin 0.083% Nebulizer Soln - NEB 1 amp QIDR EMMY Administration Albuterol/Ipratropium 1 amp 02/23/17 10:22 03/01/17 08:15 Duoneb - NEB 1 amp Q4H PRN Administration SHORTNESS OF BREATH Albuterol/Ipratropium 1 amp 03/01/17 09:29 Duoneb - NEB 03/01/17 09:30 ONCE ONE Alprazolam 0.25 mg 02/23/17 22:00 03/01/17 09:09 Xanax - PO 0.25 mg BID EMMY Administration Alprazolam 0.25 mg 03/01/17 09:25 Xanax - PO 03/01/17 09:26 ONCE ONE Baclofen 20 mg 02/23/17 14:00 03/01/17 06:23 Lioresal - PO 20 mg TID EMMY Administration Budesonide/Formoterol Fumarate 2 puff 02/23/17 10:00 03/01/17 09:07 Symbicort 160/4.5mcg - IH 2 puff BID EMMY Administration Cholecalciferol 2,000 unit 02/24/17 10:00 03/01/17 09:08 Vitamin D3 - PO 2,000 unit DAILY EMMY Administration Diltiazem HCl 60 mg 02/23/17 18:00 03/01/17 06:23 Cardizem - PO 60 mg Q6HPO EMMY Administration Diphenhydramine HCl 25 mg 02/23/17 17:32 Benadryl Oral Solution - PO Q4H PRN FOR ITCHING Docusate Sodium 100 mg 02/26/17 20:19 02/26/17 21:49 Colace - PO 100 mg BID PRN Administration CONSTIPATION Doxepin HCl 25 mg 02/23/17 22:00 02/28/17 21:41 Sinequan - PO 25 mg HS EMMY Administration Eletriptan 40 mg 02/24/17 10:38 03/01/17 07:39 Relpax - PO 40 mg Q6H PRN Administration HEADACHE Gabapentin 300 mg 02/23/17 14:00 03/01/17 06:23 Neurontin - PO 300 mg TID EMMY Administration Guaifenesin 600 mg 02/26/17 22:00 03/01/17 09:07 Mucinex - PO 600 mg BID EMMY Administration Guaifenesin 10 ml 02/26/17 17:39 02/28/17 05:52 Robitussin - PO 10 ml Q6H PRN Administration COUGH Heparin Sodium (Porcine) 5,000 unit 02/23/17 22:00 03/01/17 06:22 Heparin - SQ 5,000 unit TID EMMY Administration Hydromorphone HCl 1 mg 02/26/17 20:16 03/01/17 02:48 Dilaudid Injection - IVPB 1 mg Q4H PRN Administration PAIN Insulin Aspart 1 vial 02/28/17 15:55 03/01/17 06:23 Novolog Vial Sliding Scale - SQ 6 unit ACHS EMMY Administration Protocol Insulin Detemir 5 units 02/28/17 22:00 02/28/17 21:42 Levemir Vial SQ 5 units HS EMMY Administration Levothyroxine Sodium 25 mcg 02/23/17 10:00 03/01/17 06:22 Synthroid - PO 25 mcg DAILY@0700 EMMY Administration Methylprednisolone Sodium Succinate 40 mg 02/27/17 14:00 03/01/17 06:22 Solu-Medrol - IVPB 40 mg TID EMMY Administration Metoprolol Tartrate 25 mg 02/23/17 14:00 03/01/17 06:23 Lopressor - PO 25 mg TID EMMY Administration Multi-Ingredient Ointment 1 applic 02/24/17 10:30 03/01/17 09:10 Zinc Oxide TP 1 applic BID EMMY Administration Multivitamins/Minerals/Vitamin C 1 tab 02/23/17 10:00 03/01/17 09:08 Tab-A-Vit - PO 1 tab DAILY EMMY Administration Vortioxetine ( 1 each 02/25/17 08:00 03/01/17 08:26 Trintellix) 10 Mg PO 1 each Tablet (Pt's Own) DAILY@0800 EMMY Administration Nystatin 500,000 units 02/27/17 18:00 03/01/17 06:22 Nystatin Oral Suspension - PO 500,000 units Q6HPO EMMY Administration Ondansetron HCl 4 mg 02/23/17 08:18 02/28/17 08:42 Zofran Injection IVPB 4 mg Q6H PRN Administration NAUSEA Pancrelipase 3 cap 02/24/17 12:00 03/01/17 08:[address] 6,000 Units Capsule PO 3 cap TIDCM EMMY Administration Pantoprazole Sodium 40 mg 02/24/17 11:30 03/01/17 09:13 Protonix - PO Not Given DAILY EMMY Roflumilast 500 mcg 02/23/17 10:00 03/01/17 09:07 Daliresp - PO 500 mcg DAILY EMMY Administration Sucralfate 1 gm 02/24/17 14:00 03/01/17 09:07 Carafate - PO 1 gm QID EMMY Administration Zolpidem Tartrate 10 mg 02/26/17 20:21 02/28/17 21:41 Ambien - PO 10 mg HS PRN Administration INSOMNIA ASSESSMENT/PLAN: Patient is a 51 year old female with a past medical history of proximal atrial fib, hypertension, diabetes, COPD (home oxygen dependent), asthma, tracheostomy , uterine cancer, anxiety, depression, bipolar disorder. She presents to the ED on 02/23/2017 with nausea, diarrhea, productive cough, and left sided body pain since yesterday. She states she is currently on doxycycline, but reports having left lower sided body aches and diarrhea since taking this medication. She reports her cough has been persistent and productive of yellow sputum. She states the cough keeps her up at night. She was admitted to [place] with c/o of abdominal pain, diarrhea and acute COPD exacerbation. Imaging: Chest Xray 02/23/2017 - lungs better aerated - increased markings diminished GI: Abdominal pain with Diarrhea - improving Assessment/Plan: Was on outpatient antibiotics of Doxycycline On protonix PO, Zofran PRN Stool for c diff negative, Immodium prn Currently tolerating her diet, denies any nausea on exam GI following, diet recommendations made Pulmonary: COPD/Asthma - acute on chronic Assessment/Plan: Patient with expiratory scattered wheezes, on 2 liters of nasal cannula Has trach site, c/d/i, maintain O2 sat >88% On Solumedrol 40mg IV TID, taper per pulmonary Albuterol PRN, Symbicort Monitor off antibiotics Pulmonary following Psyche Bipolar/anxiety/depression Assessment/Plan: continue psyche home meds Endocrine: Diabetes mellitus - chronic - elevated Assessment/Plan: Novolog sliding scale (adjusted for tighter control), added Levemir 5 units @ HS Monitor BGMs while on Solumedrol Cardiology: Proxy Atrial Fib Currently in Sinus rhythm On lopressor PO, Cardizem FEN Fluid: Tolerating PO Electrolytes: within normal limits Nutrition: Diabetic diet Prophylaxis DVT: SCD, heparin SQ GI: Protonix Disposition: Discharge back to correction when stable. Full Code. Visit type - Emergency Visit Emergency Visit: Yes ED Registration Date: 02/24/17 Care time: The patient presented to the Emergency Department on the above date and was hospitalized for further evaluation of their emergent condition. - New Patient This patient is new to me today: No - Critical Care Critical Care patient: No - Discharge Referral Referred to [facility] No
[2017-03-01] MEDS ORDERED: ALBUTEROL SO4 2.5/IPRATROPIUM 0.5 INH SOL 3 ML VIAL.NEB. NEB ONE ×2 (09:37→09:45)
[2017-03-01] MEDS ORDERED: ALPRAZolam 0.25 MG TABLET PO ONE (09:45)
[2017-03-01 09:47] LABS: ARTERIAL BLD GAS O2 SATURATION 99.3 % (90-98.9); ARTERIAL BLOOD GAS BASE EXCESS 4.6 meq/l (-2-2); ARTERIAL BLOOD GAS HCO3 29.1 meq/L (22-26); ARTERIAL BLOOD GAS pH 7.42 (7.35-7.45)
[2017-03-01 09:48] LABS: ALLENS TEST POSITIVE; ART PUNCT SITE RIGHT RADIAL; LPM/O2% 3L; PT. ON O2? YES; TYPE OF O2 NASAL
[2017-03-01 10:16] LABS: BASOPHIL 0.1 % (0-2.0); MCH 25.7 pg (25.7-33.7); MCHC 31.6 g/dl (32.0-36.0); MEAN CELL VOLUME 81.2 fl (80-96); MEAN PLT VOLUME 8.8 fl (7.5-11.1); NEUTROPHILS 94.7 % (42.8-82.8); PLATELET COUNT 182 K/MM3 (134-434); RDW 17.7 % (11.6-15.6)
[2017-03-01 10:21] LABS: ALBUMIN 2.8 g/dl (3.4-5.0); ALK PHOS 88 U/L (45-117); ANION GAP 10 (8-16); BILIRUBIN,TOTAL 0.2 mg/dL (0.2-1.0); CALCIUM 8.2 mg/dL (8.5-10.1); CO2 29 mmol/L (21-32); CREATININE 0.6 mg/dL (0.55-1.02); GLUCOSE,RANDOM 177 mg/dL (74-106); SGOT/AST 23 U/L (15-37); SGPT/ALT 71 U/L (12-78); TOT PROT 5.9 g/dl (6.4-8.2)
[2017-03-01] MEDS ORDERED: LOPERAMIDE HCL 2 MG CAPSULE PO PRN (11:04)
--- NOTE | 2017-03-01 12:05 | PN ---
Progress Note (short form) - Note Progress Note: PULMONARY WELL KNOWN TO OUR PULMONARY SERVICE WAS HOME TWO DAYS AFTER PROLONGED STAY AT SNF DEVELOPED DIARRHEA AND CHEST CONGESTION VSS/AFEBRILE ANICTERIC B/L RHONCHI S1S2 BS+ SOFT NO EDEMA LABS/MEDS/NOTES/MICRO/IMAGING REVIEWED Problem List (1) Acute exacerbation of COPD with asthma Code(s): J44.1 - CHRONIC OBSTRUCTIVE PULMONARY DISEASE W (ACUTE) EXACERBATION J45.901 - UNSPECIFIED ASTHMA WITH (ACUTE) EXACERBATION (2) Bronchitis Code(s): J40 - BRONCHITIS, NOT SPECIFIED ACUTE OR CHRONIC (3) Diarrhea in adult patient Code(s): R19.7 - DIARRHEA, UNSPECIFIED (4) Anxiety Code(s): F41.9 - ANXIETY DISORDER, UNSPECIFIED (5) Bipolar 2 disorder Code(s): F31.81 - BIPOLAR II DISORDER (6) COPD (chronic obstructive pulmonary disease) case management patient Code(s): [id number] - (7) Chronic back pain Code(s): M54.9 - DORSALGIA, UNSPECIFIED G89.29 - OTHER CHRONIC PAIN (8) Depression with anxiety Code(s): F41.8 - OTHER SPECIFIED ANXIETY DISORDERS (9) Gastritis Code(s): K29.70 - GASTRITIS, UNSPECIFIED, WITHOUT BLEEDING (10) HTN (hypertension) Code(s): I10 - ESSENTIAL (PRIMARY) HYPERTENSION Qualifiers: (11) Hyperlipidemia Code(s): E78.5 - HYPERLIPIDEMIA, UNSPECIFIED (12) Opioid dependence Code(s): F11.20 - OPIOID DEPENDENCE, UNCOMPLICATED (13) Paroxysmal atrial fibrillation Code(s): I48.0 - PAROXYSMAL ATRIAL FIBRILLATION (14) Chronic pain Code(s): G89.29 - OTHER CHRONIC PAIN (15) Nausea & vomiting Code(s): R11.2 - NAUSEA WITH VOMITING, UNSPECIFIED (16) Vomiting Code(s): R11.10 - VOMITING, UNSPECIFIED Qualifiers: Vomiting type: unspecified Vomiting Intractability: unspecified Nausea presence: with nausea Qualified Code(s): R11.2 - Nausea with vomiting , unspecified (17) Afib Code(s): I48.91 - UNSPECIFIED ATRIAL FIBRILLATION (18) Anemia Code(s): D64.9 - ANEMIA, UNSPECIFIED (19) GERD (gastroesophageal reflux disease) Code(s): K21.9 - GASTRO-ESOPHAGEAL REFLUX DISEASE WITHOUT ESOPHAGITIS (20) Hemoptysis Code(s): R04.2 - HEMOPTYSIS (21) Leukocytosis Code(s): D72.829 - ELEVATED WHITE BLOOD CELL COUNT, UNSPECIFIED Qualifiers: Leukocytosis type: unspecified Qualified Code(s): D72.829 - Elevated white blood cell count, unspecified (22) Mood disorder Code(s): F39 - UNSPECIFIED MOOD [AFFECTIVE] DISORDER (23) Neuropathy Code(s): G62.9 - POLYNEUROPATHY, UNSPECIFIED Assessment/Plan Taper Medrol as required BD TX O2 as needed Symbicort Daliresp mucomyst imodium if diarrhea persists Sreedhar SEXTON MD
[2017-03-01] MEDS: ZOLPIDEM TARTRATE 5 MG TABLET PO PRN (21:38)
[2017-03-01] MEDS: DOXEPIN HCL 25 MG CAPSULE PO SCH (21:39)
[2017-03-01] MEDS: INSULIN DETEMIR 100 UNITS/ML MDV SQ SCH (21:39)
[2017-03-02] MEDS: ALBUTEROL SO4 0.083% IH SOL 2.5 MG/3 ML VIAL.NEB. NEB SCH ×4 (00:13→18:30)
[2017-03-02] MEDS: ACETYLCYSTEINE 20% 200MG/ML 4 ML VIAL *FOR ORAL / INH USE ONLY NEB SCH ×4 (00:13→18:30)
[2017-03-02] MEDS: HYDROmorphone HCL CARPU-JECT 1 MG/1 ML DISP.SYRIN IVPB PRN ×5 (00:16→20:30)
[2017-03-02] MEDS: ALBUTEROL SO4 2.5/IPRATROPIUM 0.5 INH SOL 3 ML VIAL.NEB. NEB PRN ×2 (01:50→06:57)
[2017-03-02] MEDS: dilTIAZem HCL 30 MG TABLET (FP) PO SCH ×4 (06:00→17:29)
[2017-03-02] MEDS: METOPROLOL TARTRATE 25 MG TABLET (FP) PO SCH ×3 (06:00→22:31)
[2017-03-02] MEDS: methylPREDNISolone NA SUCC 40 MG/1 ML VIAL IVPB SCH ×3 (06:00→22:51)
[2017-03-02] MEDS: ALPRAZolam 0.25 MG TABLET PO SCH ×3 (06:00→23:21)
[2017-03-02] MEDS: HEPARIN NA (PORCINE) 5,000 UNITS/ML 1ML VIAL SQ SCH ×3 (06:00→22:51)
[2017-03-02] MEDS: NYSTATIN 500,000 UNITS/5 ML SUSPENSION PO SCH ×3 (06:00→17:29)
[2017-03-02] MEDS: BACLOFEN 10 MG TABLET (FP) PO SCH ×3 (06:00→23:46)
[2017-03-02] MEDS: INSULIN SLIDING SCALE (NOVOLOG) 1 VIAL SQ SCH ×3 (06:01→17:28)
[2017-03-02] MEDS: GABAPENTIN 300 MG CAPSULE (FP) PO SCH ×3 (06:01→22:51)
[2017-03-02] MEDS: LEVOTHYROXINE NA 25 MCG TABLET (FP) PO SCH (06:01)
[2017-03-02] MEDS ORDERED: PT OWN MED DRAWER 7, Y5N ONE ×7 (06:10→23:28)
[2017-03-02] MEDS ORDERED: ALBUTEROL SO4 2.5/IPRATROPIUM 0.5 INH SOL 3 ML VIAL.NEB. NEB ONE (06:50)
[2017-03-02] MEDS: ONDANSETRON 4 MG/2 ML VIAL IVPB PRN (07:12)
[2017-03-02 09:27] LABS: MEAN CELL VOLUME 81.3 fl (80-96); MEAN PLT VOLUME 8.7 fl (7.5-11.1); PLATELET COUNT 176 K/MM3 (134-434); RDW 17.5 % (11.6-15.6); WHITE BLOOD COUNT 19.9 K/mm3 (4.0-10.0)
[2017-03-02] MEDS: LIPASE/PROTEASE/AMYLASE 6,000 UNIT CAPSULE PO SCH ×3 (09:37→17:29)
[2017-03-02] MEDS: VORTIOXETINE 10 MG PO SCH (09:38)
[2017-03-02] MEDS: CHOLECALCIFEROL (VITAMIN D3) 1,000 UNIT TABLET (FP) PO SCH (09:43)
[2017-03-02] MEDS: MULTIVITAMINS (DAILY MVI) TABLET (FP) PO SCH (09:43)
[2017-03-02] MEDS: PANTOPRAZOLE 40 MG TABLET (FP) PO SCH (09:43)
[2017-03-02] MEDS: guaiFENesin 600 MG TABLET.ER (FP) PO SCH ×2 (09:43→22:51)
[2017-03-02] MEDS: BUDESONIDE/FORMETEROL FUMARATE 160/4.5 mcg INHALER IH SCH ×2 (09:43→22:32)
[2017-03-02] MEDS: SUCRALFATE 1 GM TABLET (FP) PO SCH ×2 (09:44→13:35)
[2017-03-02] MEDS: ROFLUMILAST 500 MCG TABLET PO SCH (09:45)
[2017-03-02] MEDS: ZINC OXIDE 20% TOPICAL OINTMENT 30 GM TUBE TP SCH ×2 (09:48→23:45)
[2017-03-02 09:52] LABS: ALBUMIN 2.8 g/dl (3.4-5.0); ANION GAP 11 (8-16); BILIRUBIN,TOTAL 0.2 mg/dL (0.2-1.0); CALCIUM 8.1 mg/dL (8.5-10.1); CO2 29 mmol/L (21-32); CREATININE 0.6 mg/dL (0.55-1.02); GLUCOSE,RANDOM 161 mg/dL (74-106); SGOT/AST 55 U/L (15-37); SGPT/ALT 120 U/L (12-78); TOT PROT 5.9 g/dl (6.4-8.2)
[2017-03-02 09:53] LABS: ALK PHOS 87 U/L (45-117)
[2017-03-02] MEDS: ELETRIPTAN HYDROBROMIDE 40 MG TABLET PO PRN (10:54)
[2017-03-02] MEDS ORDERED: ALPRAZolam 0.25 MG TABLET PO ONE ×2 (11:38→14:45)
[2017-03-02] MEDS ORDERED: INSULIN (NOVOLOG) ASPART 100 UNITS/ML 10ML VIAL ONE ×4 (11:59→17:37)
[2017-03-02 12:54] LABS: HYPOCHROMIA 2+; METAMYELOCYTE 1 % (0-2); MICROCYTOSIS 1+; TEAR DROP CELLS 1+
[2017-03-02 12:55] LABS: STOMATOCYTE 4+
--- NOTE | 2017-03-02 13:25 | PN ---
Teaching Attending Note Name of Resident: Misti Rizvi ATTENDING PHYSICIAN STATEMENT I saw and evaluated the patient. I reviewed the resident's note and discussed the case with the resident. I agree with the resident's findings and plan as documented. SUBJECTIVE: Dyspnea noted Cushinoid OBJECTIVE: Lung wheezing audible wheezing ASSESSMENT AND PLAN: Selected Entries 03/02/17 08:31 Temperature 98.0 F Pulse Rate 96 H Respiratory 22 Rate Blood Pressure 141/88 Microbiology Laboratory Tests 03/02/17 03/02/17 09:10 09:10 WBC 19.9 H D Hgb 9.5 L Hct 29.8 L Plt Count 176 BUN 22 H Creatinine 0.6 Creat Clearance w eGFR > 60 Assessment Chst xray negative infiltrate Assessment Exacerbation COPD severe Leukomoid response off antibiotics steroid related Plan Per pulmonary consult. Nothing more to do now Martha WRIGHT
--- NOTE | 2017-03-02 16:30 | PN ---
Progress Note, Physician History of Present Illness: pulmonary alert,dyspneic,congested - Current Medication List Current Medications: Active Medications Acetaminophen (Tylenol -) 1,000 mg PO Q6H PRN PRN Reason: PAIN Acetylcysteine (Mucomyst 20 Oral / Inh Use Only*) 200 mg NEB QIDR [facility] Last Admin: 03/02/17 11:20 Dose: 200 mg Albuterol Sulfate (Ventolin 0.083% Nebulizer Soln -) 1 amp NEB QIDR [facility] Last Admin: 03/02/17 11:20 Dose: 1 amp Albuterol/Ipratropium (Duoneb -) 1 amp NEB Q4H PRN PRN Reason: SHORTNESS OF BREATH Last Admin: 03/02/17 06:57 Dose: 1 amp Alprazolam (Xanax -) 0.5 mg PO TID [facility] Last Admin: 03/02/17 13:35 Dose: 0.5 mg Baclofen (Lioresal -) 20 mg PO TID [facility] Last Admin: 03/02/17 13:35 Dose: 20 mg Budesonide/Formoterol Fumarate (Symbicort 160/4.5mcg -) 2 puff IH BID [facility] Last Admin: 03/02/17 09:43 Dose: 2 puff Cholecalciferol (Vitamin D3 -) 2,000 unit PO DAILY [facility] Last Admin: 03/02/17 09:43 Dose: 2,000 unit Diltiazem HCl (Cardizem -) 60 mg PO Q6HPO [facility] Last Admin: 03/02/17 12:02 Dose: 60 mg Diphenhydramine HCl (Benadryl Oral Solution -) 25 mg PO Q4H PRN PRN Reason: FOR ITCHING Docusate Sodium (Colace -) 100 mg PO BID PRN PRN Reason: CONSTIPATION Last Admin: 02/26/17 21:49 Dose: 100 mg Doxepin HCl (Sinequan -) 25 mg PO HS [facility] Last Admin: 03/01/17 21:39 Dose: 25 mg Eletriptan (Relpax -) 40 mg PO Q6H PRN PRN Reason: HEADACHE Last Admin: 03/02/17 10:54 Dose: 40 mg Gabapentin (Neurontin -) 300 mg PO TID [facility] Last Admin: 03/02/17 13:35 Dose: 300 mg Guaifenesin (Mucinex -) 600 mg PO BID [facility] Last Admin: 03/02/17 09:43 Dose: 600 mg Guaifenesin (Robitussin -) 10 ml PO Q6H PRN PRN Reason: COUGH Last Admin: 02/28/17 05:52 Dose: 10 ml Heparin Sodium (Porcine) (Heparin -) 5,000 unit SQ TID [facility] Last Admin: 03/02/17 13:35 Dose: 5,000 unit Hydromorphone HCl (Dilaudid Injection -) 1 mg IVPB Q4H PRN PRN Reason: PAIN Last Admin: 03/02/17 08:57 Dose: 1 mg Insulin Aspart (Novolog Vial Sliding Scale -) 1 vial SQ ACHS [facility] PRN Reason: Protocol Last Admin: 03/02/17 12:03 Dose: 10 unit Insulin Detemir (Levemir Vial) 5 units SQ HS [facility] Last Admin: 03/01/17 21:39 Dose: 5 units Levothyroxine Sodium (Synthroid -) 25 mcg PO DAILY@0700 [facility] Last Admin: 03/02/17 06:01 Dose: 25 mcg Loperamide HCl (Imodium -) 2 mg PO Q8H PRN PRN Reason: DIARRHEA Methylprednisolone Sodium Succinate (Solu-Medrol -) 40 mg IVPB TID [facility] Last Admin: 03/02/17 13:35 Dose: 40 mg Metoprolol Tartrate (Lopressor -) 25 mg PO TID [facility] Last Admin: 03/02/17 13:36 Dose: 25 mg Multi-Ingredient Ointment (Zinc Oxide) 1 applic TP BID [facility] Last Admin: 03/02/17 09:48 Dose: 1 applic Multivitamins/Minerals/Vitamin C (Tab-A-Vit -) 1 tab PO DAILY [facility] Last Admin: 03/02/17 09:43 Dose: 1 tab Vortioxetine ( Trintellix) 10 Mg Tablet (Pt's Own) 1 each PO DAILY@0800 [facility] Last Admin: 03/02/17 09:38 Dose: 1 each Nystatin (Nystatin Oral Suspension -) 500,000 units PO Q6HPO [facility] Last Admin: 03/02/17 12:03 Dose: 500,000 units Ondansetron HCl (Zofran Injection) 4 mg IVPB Q6H PRN PRN Reason: NAUSEA Last Admin: 03/02/17 07:12 Dose: 4 mg Pancrelipase (Creon Dr 6,000 Units Capsule) 3 cap PO TIDCM [facility] Last Admin: 03/02/17 13:36 Dose: 3 cap Pantoprazole Sodium (Protonix -) 40 mg PO DAILY [facility] Last Admin: 03/02/17 09:43 Dose: 40 mg Roflumilast (Daliresp -) 500 mcg PO DAILY [facility] Last Admin: 03/02/17 09:45 Dose: 500 mcg Sucralfate (Carafate -) 1 gm PO QID [facility] Last Admin: 03/02/17 13:35 Dose: 1 gm Zolpidem Tartrate (Ambien -) 10 mg PO HS PRN PRN Reason: INSOMNIA Last Admin: 03/01/17 21:38 Dose: 10 mg - Objective Vital Signs: Vital Signs Temperature 98.2 F 03/02/17 15:53 Pulse Rate 106 H 03/02/17 15:53 Respiratory Rate 22 03/02/17 15:53 Blood Pressure 139/65 03/02/17 15:53 O2 Sat by Pulse Oximetry (%) 99 03/01/17 21:00 Constitutional: Yes: Well Nourished, Other (dyspneic) Eyes: Yes: WNL HENT: Yes: WNL Neck: Yes: Supple Cardiovascular: Yes: Regular Rate and Rhythm, S1, S2 Respiratory: Yes: Wheezes (bilateral wheezes) Gastrointestinal: Yes: Normal Bowel Sounds, Soft Extremities: Yes: WNL Edema: No Labs: CBC, BMP 03/02/17 09:10 03/02/17 09:10 Assessment/Plan Problem List - Problems (1) Acute exacerbation of COPD with asthma Code(s): J44.1 - CHRONIC OBSTRUCTIVE PULMONARY DISEASE W (ACUTE) EXACERBATION J45.901 - UNSPECIFIED ASTHMA WITH (ACUTE) EXACERBATION (2) Bronchitis Code(s): J40 - BRONCHITIS, NOT SPECIFIED ACUTE OR CHRONIC (3) Diarrhea in adult patient Code(s): R19.7 - DIARRHEA, UNSPECIFIED (4) Anxiety Code(s): F41.9 - ANXIETY DISORDER, UNSPECIFIED (5) Bipolar 2 disorder Code(s): F31.81 - BIPOLAR II DISORDER (6) COPD (chronic obstructive pulmonary disease) case management patient Code(s): [id number] - (7) Chronic back pain Code(s): M54.9 - DORSALGIA, UNSPECIFIED G89.29 - OTHER CHRONIC PAIN (8) Depression with anxiety Code(s): F41.8 - OTHER SPECIFIED ANXIETY DISORDERS (9) Gastritis Code(s): K29.70 - GASTRITIS, UNSPECIFIED, WITHOUT BLEEDING (10) HTN (hypertension) Code(s): I10 - ESSENTIAL (PRIMARY) HYPERTENSION Qualifiers: (11) Hyperlipidemia Code(s): E78.5 - HYPERLIPIDEMIA, UNSPECIFIED (12) Opioid dependence Code(s): F11.20 - OPIOID DEPENDENCE, UNCOMPLICATED (13) Paroxysmal atrial fibrillation Code(s): I48.0 - PAROXYSMAL ATRIAL FIBRILLATION (14) Chronic pain Code(s): G89.29 - OTHER CHRONIC PAIN (15) Nausea & vomiting Code(s): R11.2 - NAUSEA WITH VOMITING, UNSPECIFIED (16) Vomiting Code(s): R11.10 - VOMITING, UNSPECIFIED Qualifiers: Vomiting type: unspecified Vomiting Intractability: unspecified Nausea presence: with nausea Qualified Code(s): R11.2 - Nausea with vomiting , unspecified (17) Afib Code(s): I48.91 - UNSPECIFIED ATRIAL FIBRILLATION (18) Anemia Code(s): D64.9 - ANEMIA, UNSPECIFIED (19) GERD (gastroesophageal reflux disease) Code(s): K21.9 - GASTRO-ESOPHAGEAL REFLUX DISEASE WITHOUT ESOPHAGITIS (20) Hemoptysis Code(s): R04.2 - HEMOPTYSIS (21) Leukocytosis Code(s): D72.829 - ELEVATED WHITE BLOOD CELL COUNT, UNSPECIFIED Qualifiers: Leukocytosis type: unspecified Qualified Code(s): D72.829 - Elevated white blood cell count, unspecified (22) Mood disorder Code(s): F39 - UNSPECIFIED MOOD [AFFECTIVE] DISORDER (23) Neuropathy Code(s): G62.9 - POLYNEUROPATHY, UNSPECIFIED Assessment/Plan Increase Medrol BD TX O2 as needed d/c Symbicort Daliresp mucomyst DR RUFFIN
--- NOTE | 2017-03-02 16:33 | PN ---
Physical Exam: SUBJECTIVE: Patient seen and examined. States her breathing is not improving, states she is very anxious. OBJECTIVE: Steroid dose increased by pulmonary. Vital Signs Period Temp Pulse Resp BP Sys/Dan Pulse Ox Last 24 Hr 98 F-98.4 F 84-106 22-22 126-141/64-89 99 GENERAL: The patient is awake, alert, and fully oriented, in no acute distress. HEAD: Normal with no signs of trauma. EYES: PERRL, extraocular movements intact, sclera anicteric, conjunctiva clear. No ptosis. ENT: Ears normal, nares patent, oropharynx clear without exudates, moist mucous membranes. NECK: Trachea midline, full range of motion, supple. LUNGS: expiratory wheezing, rhonchi on anterior lungs HEART: Regular rate and rhythm, S1, S2 without murmur, rub or gallop. ABDOMEN: abdominal pain improving EXTREMITIES: well-perfused, no edema. NEUROLOGICAL: Normal speech, gait not observed. PSYCH: Normal mood, normal affect. SKIN: Warm, dry, normal turgor, no rashes or lesions noted Laboratory Results - last 24 hr 03/01/17 03/01/17 03/02/17 17:57 21:35 05:58 WBC RBC Hgb Hct MCV MCHC RDW Plt Count MPV Neutrophils % Lymphocytes % Monocytes % Band Neutrophils Metamyelocytes Differential Comment Hypochromic-Microcytic Basophilic Stippling Microcytosis Tear Drop Cells Stomatocytes Morphology Comment Sodium Potassium Chloride Carbon Dioxide Anion Gap BUN Creatinine Creat Clearance w eGFR POC Glucometer 249 214 317 Random Glucose Calcium Total Bilirubin AST ALT Alkaline Phosphatase Total Protein Albumin 03/02/17 03/02/17 03/02/17 09:10 09:10 11:51 WBC 19.9 H D RBC 3.67 Hgb 9.5 L Hct 29.8 L MCV 81.3 MCHC 32.0 RDW 17.5 H Plt Count 176 MPV 8.7 Neutrophils % 96.0 H Lymphocytes % 1.0 L D Monocytes % 1.0 L Band Neutrophils 1.0 Metamyelocytes 1 Differential Comment Manual diff done Hypochromic-Microcytic 2+ Basophilic Stippling 1+ Microcytosis 1+ Tear Drop Cells 1+ Stomatocytes 4+ Morphology Comment Slide scanned Sodium 143 Potassium 3.9 Chloride 103 Carbon Dioxide 29 Anion Gap 11 BUN 22 H Creatinine 0.6 Creat Clearance w eGFR > 60 POC Glucometer 326 Random Glucose 161 H Calcium 8.1 L Total Bilirubin 0.2 AST 55 H D ALT 120 H D Alkaline Phosphatase 87 Total Protein 5.9 L Albumin 2.8 L Active Medications Generic Name Dose Route Start Last Admin Trade Name Freq PRN Reason Stop Dose Admin Acetaminophen 1,000 mg 02/26/17 20:20 Tylenol - PO Q6H PRN PAIN Acetylcysteine 200 mg 02/25/17 18:00 03/02/17 11:20 Mucomyst 20 Oral / Inh Use Only* NEB 200 mg QIDR EMMY Administration Albuterol Sulfate 1 amp 02/25/17 18:00 03/02/17 11:20 Ventolin 0.083% Nebulizer Soln - NEB 1 amp QIDR EMMY Administration Alprazolam 0.5 mg 03/02/17 14:00 03/02/17 13:35 Xanax - PO 0.5 mg TID EMMY Administration Baclofen 20 mg 02/23/17 14:00 03/02/17 13:35 Lioresal - PO 20 mg TID EMMY Administration Budesonide/Formoterol Fumarate 2 puff 02/23/17 10:00 03/02/17 09:43 Symbicort 160/4.5mcg - IH 2 puff BID EMMY Administration Cholecalciferol 2,000 unit 02/24/17 10:00 03/02/17 09:43 Vitamin D3 - PO 2,000 unit DAILY EMMY Administration Diltiazem HCl 60 mg 02/23/17 18:00 03/02/17 12:02 Cardizem - PO 60 mg Q6HPO EMMY Administration Diphenhydramine HCl 25 mg 02/23/17 17:32 Benadryl Oral Solution - PO Q4H PRN FOR ITCHING Docusate Sodium 100 mg 02/26/17 20:19 02/26/17 21:49 Colace - PO 100 mg BID PRN Administration CONSTIPATION Doxepin HCl 25 mg 02/23/17 22:00 03/01/17 21:39 Sinequan - PO 25 mg HS EMMY Administration Eletriptan 40 mg 02/24/17 10:38 03/02/17 10:54 Relpax - PO 40 mg Q6H PRN Administration HEADACHE Gabapentin 300 mg 02/23/17 14:00 03/02/17 13:35 Neurontin - PO 300 mg TID EMMY Administration Guaifenesin 600 mg 02/26/17 22:00 03/02/17 09:43 Mucinex - PO 600 mg BID EMMY Administration Guaifenesin 10 ml 02/26/17 17:39 02/28/17 05:52 Robitussin - PO 10 ml Q6H PRN Administration COUGH Heparin Sodium (Porcine) 5,000 unit 02/23/17 22:00 03/02/17 13:35 Heparin - SQ 5,000 unit TID EMMY Administration Hydromorphone HCl 1 mg 02/26/17 20:16 03/02/17 08:57 Dilaudid Injection - IVPB 1 mg Q4H PRN Administration PAIN Insulin Aspart 1 vial 02/28/17 15:55 03/02/17 12:03 Novolog Vial Sliding Scale - SQ 10 unit ACHS EMMY Administration Protocol Insulin Detemir 5 units 02/28/17 22:00 03/01/17 21:39 Levemir Vial SQ 5 units HS EMMY Administration Levothyroxine Sodium 25 mcg 02/23/17 10:00 03/02/17 06:01 Synthroid - PO 25 mcg DAILY@0700 EMMY Administration Loperamide HCl 2 mg 03/01/17 11:04 Imodium - PO Q8H PRN DIARRHEA Methylprednisolone Sodium Succinate 40 mg 03/02/17 21:00 Solu-Medrol - IVPB Q6H-IV EMMY Metoprolol Tartrate 25 mg 02/23/17 14:00 03/02/17 13:36 Lopressor - PO 25 mg TID EMMY Administration Mometasone Furoate 2 puff 03/02/17 16:45 Asmanex 220mcg - IH DAILY EMMY Multi-Ingredient Ointment 1 applic 02/24/17 10:30 03/02/17 09:48 Zinc Oxide TP 1 applic BID EMMY Administration Multivitamins/Minerals/Vitamin C 1 tab 02/23/17 10:00 03/02/17 09:43 Tab-A-Vit - PO 1 tab DAILY EMMY Administration Vortioxetine ( 1 each 02/25/17 08:00 03/02/17 09:38 Trintellix) 10 Mg PO 1 each Tablet (Pt's Own) DAILY@0800 EMMY Administration Nystatin 500,000 units 02/27/17 18:00 03/02/17 12:03 Nystatin Oral Suspension - PO 500,000 units Q6HPO EMMY Administration Ondansetron HCl 4 mg 02/23/17 08:18 03/02/17 07:12 Zofran Injection IVPB 4 mg Q6H PRN Administration NAUSEA Pancrelipase 3 cap 02/24/17 12:00 03/02/17 13:[address] 6,000 Units Capsule PO 3 cap TIDCM EMMY Administration Pantoprazole Sodium 40 mg 02/24/17 11:30 03/02/17 09:43 Protonix - PO 40 mg DAILY EMMY Administration Roflumilast 500 mcg 02/23/17 10:00 03/02/17 09:45 Daliresp - PO 500 mcg DAILY EMMY Administration Zolpidem Tartrate 10 mg 02/26/17 20:21 03/01/17 21:38 Ambien - PO 10 mg HS PRN Administration INSOMNIA ASSESSMENT/PLAN: Patient is a 51 year old female with a past medical history of proximal atrial fib, hypertension, diabetes, COPD (home oxygen dependent), asthma, tracheostomy , uterine cancer, anxiety, depression and bipolar disorder. She presents to the ED on 02/23/2017 with nausea, diarrhea, productive cough, and left sided body pain since yesterday. She states she is currently on doxycycline, but reports having left lower sided body aches and diarrhea since taking this medication. She reports her cough has been persistent and productive of yellow sputum. She states the cough keeps her up at night. She was admitted to [place] with c/o of abdominal pain, diarrhea and acute COPD exacerbation. Imaging: Chest Xray 02/23/2017 - lungs better aerated - increased markings diminished GI: Abdominal pain with Diarrhea - resolved Assessment/Plan: Was on outpatient antibiotics of Doxycycline On protonix PO, Zofran PRN Stool for c diff negative, Immodium prn Currently tolerating her diet, denies any nausea on exam GI following, diet recommendations made Pulmonary: COPD/Asthma - acute on chronic Assessment/Plan: Patient with expiratory scattered wheezes, on 2 liters of nasal cannula Has trach site, c/d/i, maintain O2 sat >88% Solumedrol increased by pulmonary secondary to shortness of breath Albuterol PRN Pulmonary following ID: Leukocytosis - acute Assessment/Plan: Likely steroid induced ID consulted, blood cultures sent, ID notes reviewed, monitor Psyche Bipolar/anxiety/depression Assessment/Plan: continue psyche home meds Endocrine: Diabetes mellitus - chronic - elevated Assessment/Plan: Novolog sliding scale (adjusted for tighter control), added Levemir 5 units @ HS Monitor BGMs while on Solumedrol Cardiology: Proxy Atrial Fib Currently in Sinus rhythm On lopressor PO, Cardizem FEN Fluid: Tolerating PO Electrolytes: within normal limits Nutrition: Diabetic diet Prophylaxis DVT: SCD, heparin SQ GI: Protonix Disposition: Discharge back to half-way when stable. Full Code. Visit type - Emergency Visit Emergency Visit: Yes ED Registration Date: 02/24/17 Care time: The patient presented to the Emergency Department on the above date and was hospitalized for further evaluation of their emergent condition. - New Patient This patient is new to me today: No - Critical Care Critical Care patient: No - Discharge Referral Referred to [facility] No
--- NOTE | 2017-03-02 18:03 | CONSULT ---
Consultation: REQUESTING PROVIDER: [facility] CONSULT REQUEST: We have been asked to medically evaluate this patient for Leukocytosis. HISTORY OF PRESENT ILLNESS: Patient is a 51 year old female with a PMHx of COPD (02 dependent), asthma, DM II, HTN, hypothyroidism, renal insufficiency s/p stent, Bipolar type II, depression, chronic back pain who presents with a productive cough with yellow phlegm associated with dyspnea, chills and chest pain for the last week. Patient reports she was taking Doxycycline for the last week prescribed to her by her balance wheel hand filer. Patient also reports loose bowel moves for the past week. Otherwise, patient denies fever, chest pain, dysuria, frequency, hematuria, abdominal pain, syncope. Patient denies recent travel or any sick contacts. REVIEW OF SYSTEMS: CONSTITUTIONAL: Absent: fever, chills, diaphoresis, generalized weakness, malaise, loss of appetite, weight change HEENT: Absent: rhinorrhea, nasal congestion, throat pain, throat swelling, difficulty swallowing, mouth swelling, ear pain, eye pain, visual changes CARDIOVASCULAR: Absent: chest pain, syncope, palpitations, irregular heart rate, lightheadedness , peripheral edema RESPIRATORY: Present: cough, shortness of breath, dyspnea with exertion, orthopnea, wheezing Absent: stridor, hemoptysis GASTROINTESTINAL: Present: diarrhea Absent: abdominal pain, abdominal distension, nausea, vomiting, constipation, melena, hematochezia GENITOURINARY: Absent: dysuria, frequency, urgency, hesitancy, hematuria, flank pain, genital pain MUSCULOSKELETAL: Absent: myalgia, arthralgia, joint swelling, back pain, neck pain SKIN: Absent: rash, itching, pallor HEMATOLOGIC/IMMUNOLOGIC: Absent: easy bleeding, easy bruising, lymphadenopathy, frequent infections ENDOCRINE: Absent: unexplained weight gain, unexplained weight loss, heat intolerance, cold intolerance NEUROLOGIC: Absent: headache, focal weakness or paresthesias, dizziness, unsteady gait, seizure, mental status changes, bladder or bowel incontinence PSYCHIATRIC: Absent: anxiety, depression, suicidal or homicidal ideation, hallucinations. PHYSICAL EXAMINATION Vital Signs - 24 hr 03/01/17 03/01/17 03/01/17 18:00 21:00 22:00 Temperature 98.4 F 98 F Pulse Rate 86 84 Respiratory 22 22 22 Rate Blood Pressure 128/64 130/76 O2 Sat by Pulse 99 Oximetry (%) 03/02/17 03/02/17 03/02/17 06:00 08:31 09:00 Temperature 98 F 98.0 F Pulse Rate 98 H 96 H Respiratory 22 22 Rate Blood Pressure 126/89 141/88 O2 Sat by Pulse 99 Oximetry (%) 03/02/17 03/02/17 10:55 15:53 Temperature 98.2 F Pulse Rate 106 H Respiratory 22 Rate Blood Pressure 139/65 O2 Sat by Pulse 99 Oximetry (%) GENERAL: Awake, alert, and fully oriented, in moderate respiratory distress. Cushinoid LUNGS: Bilateral wheezing throughout lung bases and audible wheezing. labored breathing. On ventimask HEART: Regular rate and rhythm, normal S1 and S2 without murmur, rub or gallop. ABDOMEN: Obese, Soft, nontender, not distended, normoactive bowel sounds, no guarding, no rebound. No hepatomegaly or splenomegaly. EXTREMITIES: No calf tenderness. No peripheral edema. Laboratory Results - last 24 hr 03/01/17 03/01/17 03/02/17 17:57 21:35 05:58 WBC RBC Hgb Hct MCV MCHC RDW Plt Count MPV Neutrophils % Lymphocytes % Monocytes % Band Neutrophils Metamyelocytes Differential Comment Hypochromic-Microcytic Basophilic Stippling Microcytosis Tear Drop Cells Stomatocytes Morphology Comment Sodium Potassium Chloride Carbon Dioxide Anion Gap BUN Creatinine Creat Clearance w eGFR POC Glucometer 249 214 317 Random Glucose Calcium Total Bilirubin AST ALT Alkaline Phosphatase Total Protein Albumin 03/02/17 03/02/17 03/02/17 09:10 09:10 11:51 WBC 19.9 H D RBC 3.67 Hgb 9.5 L Hct 29.8 L MCV 81.3 MCHC 32.0 RDW 17.5 H Plt Count 176 MPV 8.7 Neutrophils % 96.0 H Lymphocytes % 1.0 L D Monocytes % 1.0 L Band Neutrophils 1.0 Metamyelocytes 1 Differential Comment Manual diff done Hypochromic-Microcytic 2+ Basophilic Stippling 1+ Microcytosis 1+ Tear Drop Cells 1+ Stomatocytes 4+ Morphology Comment Slide scanned Sodium 143 Potassium 3.9 Chloride 103 Carbon Dioxide 29 Anion Gap 11 BUN 22 H Creatinine 0.6 Creat Clearance w eGFR > 60 POC Glucometer 326 Random Glucose 161 H Calcium 8.1 L Total Bilirubin 0.2 AST 55 H D ALT 120 H D Alkaline Phosphatase 87 Total Protein 5.9 L Albumin 2.8 L Active Medications Generic Name Dose Route Start Last Admin Trade Name Freq PRN Reason Stop Dose Admin Acetaminophen 1,000 mg 02/26/17 20:20 Tylenol - PO Q6H PRN PAIN Acetylcysteine 200 mg 02/25/17 18:00 03/02/17 11:20 Mucomyst 20 Oral / Inh Use Only* NEB 200 mg QIDR EMMY Administration Albuterol Sulfate 1 amp 02/25/17 18:00 03/02/17 11:20 Ventolin 0.083% Nebulizer Soln - NEB 03/07/17 05:00 1 amp QIDR EMMY Administration Albuterol Sulfate 1 amp 03/02/17 16:34 Ventolin 0.083% Nebulizer Soln - NEB Q2H PRN SHORT OF BREATH/WHEEZING Alprazolam 0.5 mg 03/02/17 14:00 03/02/17 13:35 Xanax - PO 0.5 mg TID EMMY Administration Baclofen 20 mg 02/23/17 14:00 03/02/17 13:35 Lioresal - PO 20 mg TID EMMY Administration Budesonide/Formoterol Fumarate 2 puff 02/23/17 10:00 03/02/17 09:43 Symbicort 160/4.5mcg - IH 2 puff BID EMMY Administration Cholecalciferol 2,000 unit 02/24/17 10:00 03/02/17 09:43 Vitamin D3 - PO 2,000 unit DAILY EMMY Administration Diltiazem HCl 60 mg 02/23/17 18:00 03/02/17 17:29 Cardizem - PO 60 mg Q6HPO EMMY Administration Diphenhydramine HCl 25 mg 02/23/17 17:32 Benadryl Oral Solution - PO Q4H PRN FOR ITCHING Docusate Sodium 100 mg 02/26/17 20:19 02/26/17 21:49 Colace - PO 100 mg BID PRN Administration CONSTIPATION Doxepin HCl 25 mg 02/23/17 22:00 03/01/17 21:39 Sinequan - PO 25 mg HS EMMY Administration Eletriptan 40 mg 02/24/17 10:38 03/02/17 10:54 Relpax - PO 40 mg Q6H PRN Administration HEADACHE Gabapentin 300 mg 02/23/17 14:00 03/02/17 13:35 Neurontin - PO 300 mg TID EMMY Administration Guaifenesin 600 mg 02/26/17 22:00 03/02/17 09:43 Mucinex - PO 600 mg BID EMMY Administration Guaifenesin 10 ml 02/26/17 17:39 02/28/17 05:52 Robitussin - PO 10 ml Q6H PRN Administration COUGH Heparin Sodium (Porcine) 5,000 unit 02/23/17 22:00 03/02/17 13:35 Heparin - SQ 5,000 unit TID EMMY Administration Hydromorphone HCl 1 mg 02/26/17 20:16 03/02/17 16:50 Dilaudid Injection - IVPB 1 mg Q4H PRN Administration PAIN Insulin Aspart 1 vial 02/28/17 15:55 03/02/17 17:28 Novolog Vial Sliding Scale - SQ 4 unit ACHS EMMY Administration Protocol Insulin Detemir 5 units 02/28/17 22:00 03/01/17 21:39 Levemir Vial SQ 5 units HS EMMY Administration Levothyroxine Sodium 25 mcg 02/23/17 10:00 03/02/17 06:01 Synthroid - PO 25 mcg DAILY@0700 EMMY Administration Loperamide HCl 2 mg 03/01/17 11:04 Imodium - PO Q8H PRN DIARRHEA Methylprednisolone Sodium Succinate 40 mg 03/02/17 21:00 Solu-Medrol - IVPB Q6H-IV EMMY Metoprolol Tartrate 25 mg 02/23/17 14:00 03/02/17 13:36 Lopressor - PO 25 mg TID EMMY Administration Mometasone Furoate 2 puff 03/02/17 16:45 Asmanex 220mcg - IH DAILY [facility] Multi-Ingredient Ointment 1 applic 02/24/17 10:30 03/02/17 09:48 Zinc Oxide TP 1 applic BID EMMY Administration Multivitamins/Minerals/Vitamin C 1 tab 02/23/17 10:00 03/02/17 09:43 Tab-A-Vit - PO 1 tab DAILY EMMY Administration Vortioxetine ( 1 each 02/25/17 08:00 03/02/17 09:38 Trintellix) 10 Mg PO 1 each Tablet (Pt's Own) DAILY@0800 EMMY Administration Nystatin 500,000 units 02/27/17 18:00 03/02/17 17:29 Nystatin Oral Suspension - PO 500,000 units Q6HPO EMMY Administration Ondansetron HCl 4 mg 02/23/17 08:18 03/02/17 07:12 Zofran Injection IVPB 4 mg Q6H PRN Administration NAUSEA Pancrelipase 3 cap 02/24/17 12:00 03/02/17 17:[address] 6,000 Units Capsule PO 3 cap TIDCM EMMY Administration Pantoprazole Sodium 40 mg 02/24/17 11:30 03/02/17 09:43 Protonix - PO 40 mg DAILY EMMY Administration Roflumilast 500 mcg 02/23/17 10:00 03/02/17 09:45 Daliresp - PO 500 mcg DAILY EMMY Administration Zolpidem Tartrate 10 mg 02/26/17 20:21 03/01/17 21:38 Ambien - PO 10 mg HS PRN Administration INSOMNIA ASSESSMENT/PLAN: Patient is a 51 year old female with a PMHx of OPD (02 dependent), asthma, DM II , HTN, hypothyroidism, renal insufficiency s/p stent, Bipolar type II, depression, chronic back pain who presents with a productive cough with yellow phlegm associated with dyspnea, chills and chest pain for the last week. Consultation placed for increasing Leukocytosis. Acute on Chronic COPD exacerbation Leukomoid response secondary to steroid use -Chest X-ray negative for acute pathology -Patient is currently on Solu-medrol 40mg IV Q6H -Afebrile since admission -Will continue to monitor off antibiotics Dispo: We will continue to follow the patient. Thank you for this consultative opportunity. Visit type - Emergency Visit Emergency Visit: Yes ED Registration Date: 02/24/17 Care time: The patient presented to the Emergency Department on the above date and was hospitalized for further evaluation of their emergent condition. - New Patient This patient is new to me today: Yes Date on this admission: 03/03/17 - Critical Care Critical Care patient: No
[2017-03-02] MEDS ORDERED: SODIUM PHOSPHATE/NA BIPHOS 133 ML ENEMA PR ONE (18:45)
[2017-03-02] MEDS: MOMETASONE FUROATE 220 MCG/IH INHALER IH SCH (18:45)
[2017-03-02 19:18] LABS: ARTERIAL BLD GAS O2 SATURATION 99.1 % (90-98.9); ARTERIAL BLOOD GAS BASE EXCESS -9.1 meq/l (-2-2)
[2017-03-02 19:23] LABS: ALLENS TEST POSITIVE; ART PUNCT SITE RIGHT RADIAL; ARTERIAL BLOOD GAS pH 6.98 (7.35-7.45); LPM/O2% 100%; PT. ON O2? YES
[2017-03-02 19:24] LABS: TYPE OF O2 AMBU-BAG
--- NOTE | 2017-03-02 19:38 | HOSP ---
Physical Examination Vital Signs: Vital Signs Temperature 98.2 F 03/02/17 15:53 Pulse Rate 106 H 03/02/17 15:53 Respiratory Rate 22 03/02/17 15:53 Blood Pressure 139/65 03/02/17 15:53 O2 Sat by Pulse Oximetry (%) 99 03/02/17 10:55 Labs: CBC, BMP 03/02/17 09:10 03/02/17 09:10 Hospitalist Encounter Assessment: Code 99 response Responded to overhead code 99 Primary RN report pt became short of breath after administration of fleet enema Pt unresponsive to verbal and tactile stimuli CPR initiated, Patient intubated, BP during code 180/90, heart rate 130-140 respiratory rate 40 labored patient minimally responsive ABG, repeat labs, ekg, trops ordered Patient sent to ICU Called patient mother and HCP and informed her of events
[2017-03-02] MEDS: PROPOFOL 100 ML IVPB SCH (19:45)
[2017-03-02 20:16] LABS: MCH 25.8 pg (25.7-33.7); MEAN PLT VOLUME 9.8 fl (7.5-11.1); PLATELET COUNT 392 K/MM3 (134-434); RDW 18.5 % (11.6-15.6)
[2017-03-02 20:26] LABS: INR 0.97 (0.82-1.09); PROTHROMBIN TIME (PATIENT) 10.7 SEC (9.98-11.88)
[2017-03-02 20:30] LABS: ARTERIAL BLD GAS O2 SATURATION 98.1 % (90-98.9); ARTERIAL BLOOD GAS BASE EXCESS 4.7 meq/l (-2-2); ARTERIAL BLOOD GAS HCO3 29.8 meq/L (22-26); ARTERIAL BLOOD GAS PO2 99.6 mmHg (80-100)
[2017-03-02 20:34] LABS: ALLENS TEST POSITIVE; ART PUNCT SITE RIGHT RADIAL; LPM/O2% 50; MECH. VENT. YES; PT. ON O2? RRA; TYPE OF O2 VENT
[2017-03-02 20:35] LABS: VENT RATE 20; VT/PRESS 450
[2017-03-02 20:48] LABS: ANION GAP 15 (8-16); BILIRUBIN,TOTAL 0.3 mg/dL (0.2-1.0); CALCIUM 8.2 mg/dL (8.5-10.1); CO2 27 mmol/L (21-32); CREATININE 0.7 mg/dL (0.55-1.02); SGOT/AST 83 U/L (15-37); SGPT/ALT 166 U/L (12-78); TOT PROT 6.6 g/dl (6.4-8.2)
[2017-03-02 20:51] LABS: ALK PHOS 118 U/L (45-117); TROPONIN I < 0.02 ng/ml (0.00-0.05)
[2017-03-02 20:54] LABS: WHITE BLOOD COUNT 50.9 K/mm3 (4.0-10.0)
[2017-03-02 20:55] LABS: GLUCOSE,RANDOM 318 mg/dL (74-106)
--- NOTE | 2017-03-02 21:34 | CONSULT ---
Consult Consult Specialty:: Pulm/CCM Reason for Consultation:: Respiratory Arrest - History of Present Illness Chief Complaint: Hypercarbic respiratory Failure History of Present Illness: 51 paco with Hx of A-fib, HTN, DM!, COPD on home O2 , Asthma, previous trach, Uterine cancer , anxiety, depression and bipolar disorder who presents EXD on 02/23/17 with c/o n/v/d possibly 2/2 to adverse reaction to doxycycline for bronchitis. On the floor being treated for bronchitis and COPD with steroids, nebs and symbicort. Off antibiotics no infiltrate noted on CXR, WBC wnl. Today pt suffered a hypercarbic respiratory arrest in the setting of sedation for receiving an enema. ROSC ~2mins, with complete recovery of consciousness. She was intubated. Pre intubation ABG 6.98,111, 283. She was transferred to ICU. Pt received awake, CUEVAS and following commands on Propofol drip. BP 140-160/90- 100's, HR 100-110 sin tach. Afebrile. Dilaudid pushes given for back pain. RASS -3-4 on Propofol drip 30mcg/min. Post intubation ABG 7.40, 49, 99. Coarse rhonchi on exam with thick blood tinged secretions. Labs notable for WBC 50, lactate 6, Troponin 0.02. Started on Zosyn IV and vanco x 1for possible HCAP, aspiration PNA. - History Source History Provided By: Medical Record Limitations to Obtaining History: Other (sedated) - Past Medical History Cardio/Vascular: Yes: AFIB (Paroxysmal), HTN, Hyperlipdemia Pulmonary: Yes: Asthma, COPD, O2 Dependent Renal/: Yes: Cancer (Uterine), Other (STENTS/[place] in the past) Infectious Disease: Yes: C-Diff (june 2014), Other (Osteomyelitis of thoracic spine) Psych: Yes: Anxiety, Bipolar, Depression Musculoskeletal: Yes: Chronic low back pain Additional Medical History: Frequent c/o abdominal pain-extensive w/u in the past negative. Presumed adhesions from prior surgeries. - Past Surgical History Past Surgical History: Yes: Hysterectomy (with BSO) - Alcohol/Substance Use Hx Alcohol Use: No - Smoking History Smoking history: Former smoker Have you smoked in the past 12 months: No Aproximately how many cigarettes per day: 3 If you are a former smoker, when did you quit?: 10/11/14 - Social History Usual Living Arrangement: With Significant Other 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) History of Recent Travel: No Home Medications - Allergies Allergies/Adverse Reactions: Allergies Allergy/AdvReac Type Severity Reaction Status Date / Time oxycodone [Oxycodone] Allergy Severe Nausea Verified 02/23/17 05:20 oxycodone HCl [From Percocet] Allergy Severe Nausea Verified 02/23/17 05:20 aspirin Allergy Mild Verified 02/23/17 05:20 blueberry [Blueberry] Allergy Mild Swelling Verified 02/23/17 05:20 fentanyl Allergy Verified 02/23/17 13:40 - Home Medications Home Medications: Ambulatory Orders Acetaminophen [Tylenol .Regular Strength -] 650 mg PO Q6H PRN #0 tablet Levothyroxine [Synthroid -] 25 mcg PO DAILY@0700 tablet 06/05/16 Albuterol 2.5/Ipratropium 0.5 [Duoneb -] 1 amp NEB Q4HPO amp 09/17/16 Alprazolam [Xanax] 0.25 mg PO BID tablet MDD 2 09/17/16 Diltiazem [Cardizem -] 60 mg PO Q6HPO tablet 09/17/16 Magnesium Oxide [Mag-Ox -] 400 mg PO BID tablet 09/17/16 Baclofen [Lioresal -] 20 mg PO TID 10/01/16 Budesonide/Formeterol Fumarate [SYMBICORT 160/4.5mcg -] 2 inh PO BID 11/01/16 Diphenhydramine [Benadryl 12.5 MG/5 ML Oral Solution -] 25 mg PO Q4H PRN Eletriptan Hydrobromide [Relpax -] 40 mg PO PRN 11/01/16 Gabapentin [Neurontin -] 300 mg PO TID 11/01/16 Metoprolol Tartrate [Lopressor -] 25 mg PO TID 11/01/16 Omeprazole 40 mg PO BID 11/01/16 Roflumilast [Daliresp] 500 mcg PO DAILY 11/01/16 Zolpidem Tartrate [Ambien] 10 mg PO HS PRN MDD 1 11/01/16 Lipase/Protease/Amylase [Eamon Turner 6,000 Units Capsule] 3 cap PO TIDCM capsule. 11/07/16 Insulin Sliding Scale [Novolog Vial Sliding Scale -] 0 units SQ ACHS PRN Doxepin HCl [Sinequan -] 25 mg PO HS capsule 11/20/16 Lactobacillus Acidophilus [Bacid -] 1 tab PO BID tab 11/20/16 Metoclopramide HCl [Reglan -] 10 mg PO TIDAC tablet 11/20/16 Multivitamins [Multivit ([facility] Formul[facility])] 1 tab PO DAILY tab 11/20/16 Ondansetron [Zofran -] 4 mg PO Q4H PRN #0 tablet 11/20/16 Zinc Oxide 1 applic TP BID tube 11/20/16 Insulin (Levemir) [Levemir Vial] 5 unit SQ DAILY #1 vial 11/21/16 Cholecalciferol (Vitamin D3) [Vitamin D3 -] 2,000 unit PO DAILY #30 tab Heparin - 5,000 unit SQ TID vial 11/28/16 Albuterol Sulfate Inhaler - [Ventolin HFA Inhaler -] 2 puff IH Q4H PRN #0 inhaler 11/29/16 Prednisone 10 mg PO DAILY #15 tablet 11/29/16 Sucralfate [Carafate -] 1 gm PO QID tablet 12/16/16 Hydromorphone [Dilaudid -] 4 mg PO Q4H PRN #0 tablet MDD 24mg 12/17/16 Family Disease History - Family Disease History Family History: Unable to Obtain (intubated) Family Disease History: Diabetes: Mother (heart surgery), Heart Disease: Mother , [place]: Father (leukemia) Review of Systems Unable to obtain ROS, reason: intubated and sedated Physical Exam Vital Signs: Vital Signs Temperature 98.2 F 03/02/17 15:53 Pulse Rate 106 H 03/02/17 15:53 Respiratory Rate 24 03/02/17 19:35 Blood Pressure 139/65 03/02/17 15:53 O2 Sat by Pulse Oximetry (%) 99 03/02/17 10:55 Constitutional: Yes: Obese (dickson face, barrel chest; heavy trunk) Eyes: Yes: PERRL, Other (sclera clear) HENT: Yes: Other (orally intubated) Neck: Yes: Other (thick neck) Cardiovascular: Yes: Regular Rate and Rhythm, Other (tachycardic) Respiratory: Yes: Intubated, Mechanically Ventilated, Rhonchi, Other ( secretions blood tinged; thick beige, no wheeze) Gastrointestinal: Yes: Abdomen, Obese ...Rectal Exam: Yes: Deferred Renal/: Yes: [place] Present, Other (urine clear) Breast(s): Yes: WNL Extremities: Yes: Other (WWP, no edema) Edema: No Integumentary: Yes: WNL Neurological: Yes: Other (Awake and following commands) ...Motor Strength: WNL Psychiatric: Yes: Other (sedated for vent synchrony and comfort) Labs: CBC, BMP 03/02/17 20:03 03/02/17 20:03 CBC,CMP WBC 50.9 K/mm3 (4.0-10.0) H* D 03/02/17 20:03 RBC 4.16 M/mm3 (3.60-5.2) 03/02/17 20:03 Hgb 10.7 GM/dL (10.7-15.3) D 03/02/17 20:03 Hct 34.5 % (32.4-45.2) D 03/02/17 20:03 MCV 83.0 fl (80-96) 03/02/17 20:03 MCHC 31.0 g/dl (32.0-36.0) L 03/02/17 20:03 RDW 18.5 % (11.6-15.6) H 03/02/17 20:03 Plt Count 392 K/MM3 (134-434) D 03/02/17 20:03 MPV 9.8 fl (7.5-11.1) D 03/02/17 20:03 Neutrophils % Y 03/02/17 20:03 Lymphocytes % Y 03/02/17 20:03 Monocytes % 1.0 % (3.8-10.2) L 03/02/17 09:10 Eosinophils % 0.0 % (0-4.5) 03/01/17 09:52 Basophils % 0.1 % (0-2.0) 03/01/17 09:52 Band Neutrophils 1.0 % (0-10) 03/02/17 09:10 Metamyelocytes 1 % (0-2) 03/02/17 09:10 Differential Comment Manual diff done 03/02/17 09:10 Hypochromic-Microcytic 2+ 03/02/17 09:10 Basophilic Stippling 1+ 03/02/17 09:10 Microcytosis 1+ 03/02/17 09:10 Tear Drop Cells 1+ 03/02/17 09:10 Stomatocytes 4+ 03/02/17 09:10 Morphology Comment Slide scanned 03/02/17 09:10 Sodium 142 mmol/L (136-145) 03/02/17 20:03 Potassium 4.5 mmol/L (3.5-5.1) 03/02/17 20:03 Chloride 100 mmol/L (98-107) 03/02/17 20:03 Carbon Dioxide 27 mmol/L (21-32) 03/02/17 20:03 Anion Gap 15 (8-16) 03/02/17 20:03 BUN 21 mg/dL (7-18) H 03/02/17 20:03 Creatinine 0.7 mg/dL (0.55-1.02) 03/02/17 20:03 Creat Clearance w eGFR > 60 (>60) 03/02/17 20:03 POC Glucometer 308 UNITS (()) 03/02/17 19:12 Random Glucose 318 mg/dL (74-106) H* D 03/02/17 20:03 Lactic Acid 6.091 mmol/L (0.4-2.0) H* 03/02/17 20:03 Calcium 8.2 mg/dL (8.5-10.1) L 03/02/17 20:03 Phosphorus 2.1 mg/dL (2.5-4.9) L D 02/27/17 08:40 Magnesium 2.2 mg/dL (1.8-2.4) D 02/27/17 08:40 Total Bilirubin 0.3 mg/dL (0.2-1.0) D 03/02/17 20:03 AST 83 U/L (15-37) H D 03/02/17 20:03 ALT 166 U/L (12-78) H D 03/02/17 20:03 Alkaline Phosphatase 118 U/L (45-117) H D 03/02/17 20:03 LD Total 151 U/L (84-246) 02/23/17 01:52 Creatine Kinase 40 IU/L (26-192) 02/23/17 17:36 Troponin I < 0.02 ng/ml (0.00-0.05) 03/02/17 20:03 Total Protein 6.6 g/dl (6.4-8.2) 03/02/17 20:03 Albumin 3.0 g/dl (3.4-5.0) L 03/02/17 20:03 Total Amylase 55 U/L (25-115) D 02/23/17 01:52 Lipase 180 U/L (73-393) 02/23/17 01:52 ABG Results ABG pH 7.40 (7.35-7.45) D 03/02/17 20:15 ABG pCO2 at Pt Temp 49.6 mmHg (35-45) H D 03/02/17 20:15 ABG pO2 at Pt Temp 99.6 mmHg (80-100) D 03/02/17 20:15 ABG HCO3 29.8 meq/L (22-26) H 03/02/17 20:15 ABG O2 Sat (Measured) 98.1 % (90-98.9) 03/02/17 20:15 ABG O2 Content 13.2 % vol (15-22) L 03/02/17 20:15 ABG Base Excess 4.7 meq/l (-2-2) H 03/02/17 20:15 Active Medications Acetaminophen (Tylenol -) 1,000 mg PO Q6H PRN PRN Reason: PAIN Acetylcysteine (Mucomyst 20 Oral / Inh Use Only*) 200 mg NEB QIDR [facility] Last Admin: 03/03/17 00:05 Dose: 200 mg Albuterol Sulfate (Ventolin 0.083% Nebulizer Soln -) 1 amp NEB Q2H PRN PRN Reason: SHORT OF BREATH/WHEEZING Last Admin: 03/03/17 00:05 Dose: 1 amp Alprazolam (Xanax -) 0.5 mg PO TID [facility] Last Admin: 03/02/17 23:21 Dose: 0.5 mg Baclofen (Lioresal -) 20 mg PO TID [facility] Last Admin: 03/02/17 23:46 Dose: 20 mg Budesonide/Formoterol Fumarate (Symbicort 160/4.5mcg -) 2 puff IH BID [facility] Last Admin: 03/02/17 22:32 Dose: Not Given Cholecalciferol (Vitamin D3 -) 2,000 unit PO DAILY [facility] Last Admin: 03/02/17 09:43 Dose: 2,000 unit Diphenhydramine HCl (Benadryl Oral Solution -) 25 mg PO Q4H PRN PRN Reason: FOR ITCHING Docusate Sodium (Colace -) 100 mg PO BID PRN PRN Reason: CONSTIPATION Last Admin: 02/26/17 21:49 Dose: 100 mg Doxepin HCl (Sinequan -) 25 mg PO HS [facility] Last Admin: 03/02/17 23:21 Dose: 25 mg Eletriptan (Relpax -) 40 mg PO Q6H PRN PRN Reason: HEADACHE Last Admin: 03/02/17 10:54 Dose: 40 mg Gabapentin (Neurontin -) 300 mg PO TID [facility] Last Admin: 03/02/17 22:51 Dose: 300 mg Guaifenesin (Mucinex -) 600 mg PO BID [facility] Last Admin: 03/02/17 22:51 Dose: 600 mg Guaifenesin (Robitussin -) 10 ml PO Q6H PRN PRN Reason: COUGH Last Admin: 02/28/17 05:52 Dose: 10 ml Heparin Sodium (Porcine) (Heparin -) 5,000 unit SQ TID [facility] Last Admin: 03/02/17 22:51 Dose: 5,000 unit Hydromorphone HCl (Dilaudid Injection -) 1 mg IVPB Q4H PRN PRN Reason: PAIN Last Admin: 03/02/17 20:30 Dose: 1 mg Propofol (Diprivan -) 100 mls @ 1.81 mls/hr IVPB TITR EMMY; 5 MCG/KG/MIN PRN Reason: Protocol Last Admin: 03/02/17 19:45 Dose: 1.81 mls/hr Levothyroxine Sodium (Synthroid -) 25 mcg PO DAILY@0700 [facility] Last Admin: 03/02/17 06:01 Dose: 25 mcg Loperamide HCl (Imodium -) 2 mg PO Q8H PRN PRN Reason: DIARRHEA Methylprednisolone Sodium Succinate (Solu-Medrol -) 40 mg IVPB Q6H-IV [facility] Last Admin: 03/02/17 22:51 Dose: 40 mg Mometasone Furoate (Asmanex 220mcg -) 2 puff IH DAILY [facility] Last Admin: 03/02/17 18:45 Dose: Not Given Multi-Ingredient Ointment (Zinc Oxide) 1 applic TP BID [facility] Last Admin: 03/02/17 23:45 Dose: 1 applic Multivitamins/Minerals/Vitamin C (Tab-A-Vit -) 1 tab PO DAILY [facility] Last Admin: 03/02/17 09:43 Dose: 1 tab Vortioxetine ( Trintellix) 10 Mg Tablet (Pt's Own) 1 each PO DAILY@0800 [facility] Last Admin: 03/02/17 09:38 Dose: 1 each Nystatin (Nystatin Oral Suspension -) 500,000 units PO Q6HPO [facility] Last Admin: 03/02/17 17:29 Dose: 500,000 units Ondansetron HCl (Zofran Injection) 4 mg IVPB Q6H PRN PRN Reason: NAUSEA Last Admin: 03/02/17 07:12 Dose: 4 mg Pancrelipase (Creon Dr 6,000 Units Capsule) 3 cap PO TIDCM [facility] Last Admin: 03/02/17 17:29 Dose: 3 cap Pantoprazole Sodium (Protonix -) 40 mg PO DAILY [facility] Last Admin: 03/02/17 09:43 Dose: 40 mg Piperacillin Sod/Tazobactam Sod (Zosyn 3.375gm Ivpb (Pre-Docked)) 3.375 gm IVPB Q8H-IV EMMY PRN Reason: Protocol Roflumilast (Daliresp -) 500 mcg PO DAILY [facility] Last Admin: 03/02/17 09:45 Dose: 500 mcg Zolpidem Tartrate (Ambien -) 10 mg PO HS PRN PRN Reason: INSOMNIA Last Admin: 03/01/17 21:38 Dose: 10 mg Problem List - Problems (1) Acute exacerbation of COPD with asthma Code(s): J44.1 - CHRONIC OBSTRUCTIVE PULMONARY DISEASE W (ACUTE) EXACERBATION J45.901 - UNSPECIFIED ASTHMA WITH (ACUTE) EXACERBATION (2) Bronchitis Code(s): J40 - BRONCHITIS, NOT SPECIFIED ACUTE OR CHRONIC (3) Acute and chronic respiratory failure Code(s): J96.20 - ACUTE AND CHR RESP FAILURE, UNSP W HYPOXIA OR HYPERCAPNIA Qualifiers: Respiratory failure complication: hypoxia Qualified Code(s): J96.21 - Acute and chronic respiratory failure with hypoxia (4) Anxiety Code(s): F41.9 - ANXIETY DISORDER, UNSPECIFIED (5) COPD (chronic obstructive pulmonary disease) case management patient Code(s): EBI5470 - (6) Acute hypercapnic respiratory failure Code(s): J96.02 - ACUTE RESPIRATORY FAILURE WITH HYPERCAPNIA Assessment/Plan 51 yo woman with Hx of COPD on home O2, multiple admissions for exacerbation, previous trach, Afib, HTN,anxiety, bipolar disorder and depression admitted to hospital with bronchitis and diarrhea now admitted to ICU intubated after respiratory arrest in the setting of sedation for an enema. ROSC ~2mins, mental status intact. On exam rhonchi with thick secretions. C/f HCAP +/- aspiration during event. Hypercapnic Respiratory Failure requiring intubation 2/2 COPD exacerbation in setting of HCAP +/- aspiration+/- oversedation -Lung protective vent support -Wean FiO2 as carolyn -ABG -Sedation with Propofol drip and dilaudid pushes for vent synchrony, comfort -Cont Albuterol nebs -Atrovent nebs -Cont Solumedrol 40mg q6 -Antibiotics for empiric HCAP coverage -Pulm toilet -Aspiration precautions ID:Leukocytosis to 50's? HCAP vs steroid response; Hx of MRSA PNA; C-diff negative -Connelly culture -HCAP coverage with Zosyn and vanco -Trend WBC and lactate CV: Afib, HTN; hypertensive post arrest; troponin wnl -Hold anti-hypertensives while on sedatives -HD monitoring -Anxiety and pain control GI/Endo: Elevated AST/ALT/Alk phos ? in setting of shock -Monitor LFTs -Abd US if no improvement in transamnases -NPO for now - Insulin drip -D5NS infusion Renal: -Monitor BMP and UOP -[place] cath -Adequate hydration Neuro/Psyche: Anxiety, depression, chronic pain -Cont standing anti depressant -Cont neurontin and baclofen for chronic pain Proph: Hep SQ/PPI
[2017-03-02 21:47] LABS: PLATELET ESTIMATE ADEQUATE (NORMAL)
[2017-03-02] MEDS ORDERED: PIPERACILLIN/TAZOB 3.375 GM/50 ML PRE-DOCKED IVPB SCH (22:15)
[2017-03-02] MEDS: INSULIN DETEMIR 100 UNITS/ML MDV SQ SCH (22:33)
[2017-03-02] MEDS ORDERED: INSULIN REGULAR 100 UNITS in SODIUM CHLORIDE 99 ML IVPB SCH (22:45)
[2017-03-02] MEDS ORDERED: PIPERACILLIN/TAZOB 3.375 GM/50 ML PRE-DOCKED IVPB ONE (23:00)
[2017-03-02] MEDS: DOXEPIN HCL 25 MG CAPSULE PO SCH (23:21)
[2017-03-03] MEDS: ACETYLCYSTEINE 20% 200MG/ML 4 ML VIAL *FOR ORAL / INH USE ONLY NEB SCH ×4 (00:05→18:00)
[2017-03-03] MEDS: ALBUTEROL SO4 0.083% IH SOL 2.5 MG/3 ML VIAL.NEB. NEB PRN ×2 (00:05→18:00)
[2017-03-03 00:42] LABS: ARTERIAL BLD GAS O2 SATURATION 91.5 % (90-98.9); ARTERIAL BLOOD GAS BASE EXCESS 6.8 meq/l (-2-2); ARTERIAL BLOOD GAS PO2 59.7 mmHg (80-100)
[2017-03-03 00:43] LABS: LPM/O2% 50%; MECH. VENT. YES; PT. ON O2? YES; TYPE OF O2 MECH VENT; VENT RATE 25; VT/PRESS 350
[2017-03-03 00:44] LABS: ARTERIAL BLOOD GAS pH 7.46 (7.35-7.45)
[2017-03-03] MEDS ORDERED: PIPERACILLIN/TAZOB 3.375 GM/50 ML PRE-DOCKED IVPB SCH (02:00)
[2017-03-03] MEDS ORDERED: VANCOMYCIN 1 GRAM (PRE-DOCKED) 1,000 MG/250 ML BAG IVPB ONE (02:10)
[2017-03-03] MEDS ORDERED: DEXTROSE 5%-NORMAL SALINE 1,000 ML IV SCH (02:15)
--- NOTE | 2017-03-03 02:25 | PROC ---
Procedure Note Procedure: Rt Femoral TLC cath was placed for IV infusions and blood sampling. Catheter was placed under sterile conditions, using US guidance and seldinger technique. Lidocaine 5cc given SQ. The catheter was inserted to full length 20cm. Bio- patch dressing placed. Pt tolerated procedure well.
[2017-03-03] MEDS ORDERED: SODIUM CHLORIDE 250 ML IV STA (02:59)
[2017-03-03] MEDS: methylPREDNISolone NA SUCC 40 MG/1 ML VIAL IVPB SCH ×4 (04:12→21:24)
[2017-03-03] MEDS ORDERED: PROPOFOL 100 ML ONE (04:51)
[2017-03-03] MEDS: ALBUTEROL SO4 2.5/IPRATROPIUM 0.5 INH SOL 3 ML VIAL.NEB. NEB SCH ×2 (06:16→11:27)
[2017-03-03] MEDS: LEVOTHYROXINE NA 25 MCG TABLET (FP) PO SCH (06:20)
[2017-03-03] MEDS: BACLOFEN 10 MG TABLET (FP) PO SCH ×3 (06:20→21:24)
[2017-03-03] MEDS: HEPARIN NA (PORCINE) 5,000 UNITS/ML 1ML VIAL SQ SCH ×3 (06:21→21:22)
[2017-03-03] MEDS: ALPRAZolam 0.25 MG TABLET PO SCH (06:23)
[2017-03-03] MEDS: GABAPENTIN 300 MG CAPSULE (FP) PO SCH ×3 (06:23→21:24)
[2017-03-03] MEDS: HYDROmorphone HCL CARPU-JECT 1 MG/1 ML DISP.SYRIN IVPB PRN (06:30)
--- NOTE | 2017-03-03 06:36 | PN ---
Progress Note (short form) - Note Progress Note: FLOOR INTUBATION NOTE Called to patient bedside after the patient went into cardiopulmonary failure. Patient has resumed spontaneous circulation when I arrived at the bedside, but was exhibiting signs of respiratory distress. A decision was made to intubate the patient. BP was 180 systolic and hR was in the 140s. Etomidate 6mg was administered with mild sedation achieved, MAC 3 blade with a grade 2 view, 7.5 ETT cuffed was placed and confirmed using color change calorimetry, BP rechecked with systolic reading in the 170's. 30mg Propofol was administered. The patient maintained HD stability. Care was handed over to the ICU team.
[2017-03-03 06:41] LABS: BASOPHIL 0.1 % (0-2.0); MCH 25.5 pg (25.7-33.7); MCHC 31.3 g/dl (32.0-36.0); MEAN CELL VOLUME 81.3 fl (80-96); MEAN PLT VOLUME 9.1 fl (7.5-11.1); PLATELET COUNT 150 K/MM3 (134-434); WHITE BLOOD COUNT 15.1 K/mm3 (4.0-10.0)
[2017-03-03 06:54] LABS: INR 1.04 (0.82-1.09); PROTHROMBIN TIME (PATIENT) 11.4 SEC (9.98-11.88)
[2017-03-03 07:04] LABS: ALBUMIN 2.3 g/dl (3.4-5.0); ANION GAP 11 (8-16); CALCIUM 7.7 mg/dL (8.5-10.1); CO2 32 mmol/L (21-32); CREATININE 0.7 mg/dL (0.55-1.02); GLUCOSE,RANDOM 203 mg/dL (74-106); SGOT/AST 52 U/L (15-37); SGPT/ALT 156 U/L (12-78)
[2017-03-03 07:06] LABS: ALK PHOS 83 U/L (45-117); BILIRUBIN,TOTAL 0.4 mg/dL (0.2-1.0); TOT PROT 5.3 g/dl (6.4-8.2)
[2017-03-03] MEDS: NYSTATIN 500,000 UNITS/5 ML SUSPENSION PO SCH ×3 (07:22→13:00)
[2017-03-03 07:48] LABS: TROPONIN I 0.06 ng/ml (0.00-0.05)
[2017-03-03] MEDS ORDERED: SODIUM CHLORIDE 1,000 ML IV SCH (08:00)
[2017-03-03] MEDS ORDERED: KCL 10 MEQ IVPB 100 ML IVPB SCH (08:30)
[2017-03-03] MEDS: VORTIOXETINE 10 MG PO SCH (09:00)
[2017-03-03] MEDS: PROPOFOL 100 ML IVPB SCH ×3 (09:00→19:45)
[2017-03-03] MEDS: PANTOPRAZOLE 40 MG TABLET (FP) PO SCH (10:15)
[2017-03-03] MEDS: MOMETASONE FUROATE 220 MCG/IH INHALER IH SCH (10:16)
[2017-03-03] MEDS: ROFLUMILAST 500 MCG TABLET PO SCH (10:16)
[2017-03-03] MEDS: guaiFENesin 600 MG TABLET.ER (FP) PO SCH ×2 (10:16→21:22)
[2017-03-03] MEDS: MULTIVITAMINS (DAILY MVI) TABLET (FP) PO SCH (10:17)
[2017-03-03] MEDS: BUDESONIDE/FORMETEROL FUMARATE 160/4.5 mcg INHALER IH SCH ×2 (10:17→21:25)
[2017-03-03] MEDS: ZINC OXIDE 20% TOPICAL OINTMENT 30 GM TUBE TP SCH ×2 (10:17→21:25)
[2017-03-03] MEDS: LIPASE/PROTEASE/AMYLASE 6,000 UNIT CAPSULE PO SCH ×3 (10:18→18:48)
[2017-03-03] MEDS: CHOLECALCIFEROL (VITAMIN D3) 1,000 UNIT TABLET (FP) PO SCH (10:52)
[2017-03-03] MEDS: KCL 10 MEQ IVPB 100 ML IVPB SCH ×3 (11:01→14:20)
--- NOTE | 2017-03-03 11:16 | PN ---
Physical Exam: SUBJECTIVE: Patient seen and examined at the bedside. OBJECTIVE: Code 99 yesterday @ 7pm, now intubated Lightly sedated on propofol and fentanyl she is awake enough to make her needs known able to respond to me by writing down "I am in pain", "I want iv push" assured her that we will manage her pain with the fentanyl iv infusion Vital Signs Period Temp Pulse Resp BP Sys/Dan Pulse Ox Last 24 Hr 97.5 F-98.9 F 93-112 14-25 128-139/65-98 99 GENERAL: The patient is awake, alert, now intubated HEAD: Normal with no signs of trauma. EYES: PERRL, extraocular movements intact, sclera anicteric, conjunctiva clear. No ptosis. ENT: Ears normal, nares patent, oropharynx clear without exudates, moist mucous membranes. NECK: Trachea midline, full range of motion, supple. LUNGS: expiratory wheezing, rhonchi on anterior lungs HEART: Regular rate and rhythm, S1, S2 without murmur, rub or gallop. ABDOMEN: no abdominal pain, non distended, + bowel sounds EXTREMITIES: well-perfused, no edema. NEUROLOGICAL: intubated, gait not observed. PSYCH: Normal mood, normal affect. SKIN: Warm, dry, normal turgor, no rashes or lesions noted Laboratory Results - last 24 hr 03/02/17 03/02/17 03/02/17 09:10 11:51 17:20 WBC RBC Hgb Hct MCV MCHC RDW Plt Count MPV Neutrophils % 96.0 H Lymphocytes % 1.0 L D Monocytes % 1.0 L Eosinophils % Basophils % Band Neutrophils 1.0 Metamyelocytes 1 Differential Comment Manual diff done Platelet Estimate RBC Morphology Hypochromic-Microcytic 2+ Basophilic Stippling 1+ Microcytosis 1+ Tear Drop Cells 1+ Stomatocytes 4+ Morphology Comment Slide scanned INR Puncture Site ABG pH ABG pCO2 at Pt Temp ABG pO2 at Pt Temp ABG HCO3 ABG O2 Sat (Measured) ABG O2 Content ABG Base Excess Francis Test O2 Delivery Device Oxygen Flow Rate Vent Mode Vent Rate Mechanical Rate PEEP Pressure Support Vent Sodium Potassium Chloride Carbon Dioxide Anion Gap BUN Creatinine Creat Clearance w eGFR POC Glucometer 326 165 Random Glucose Lactic Acid Calcium Total Bilirubin AST ALT Alkaline Phosphatase Creatine Kinase Troponin I Total Protein Albumin Total Amylase 03/02/17 03/02/17 03/02/17 19:12 19:20 20:03 WBC 50.9 H* D RBC 4.16 Hgb 10.7 D Hct 34.5 D MCV 83.0 MCHC 31.0 L RDW 18.5 H Plt Count 392 D MPV 9.8 D Neutrophils % 88.0 H Lymphocytes % 5.0 L D Monocytes % 4.0 D Eosinophils % Basophils % Band Neutrophils 3.0 D Metamyelocytes Differential Comment Platelet Estimate Adequate RBC Morphology Appears normal Hypochromic-Microcytic Basophilic Stippling Microcytosis Tear Drop Cells Stomatocytes Morphology Comment INR Puncture Site Right radial ABG pH 6.98 L* D ABG pCO2 at Pt Temp 111.0 H* D ABG pO2 at Pt Temp 283.0 H* ABG HCO3 25.0 ABG O2 Sat (Measured) 99.1 H ABG O2 Content 15.8 ABG Base Excess -9.1 L Francis Test Positive O2 Delivery Device Ambu-bag Oxygen Flow Rate 100% Vent Mode Vent Rate Mechanical Rate PEEP Pressure Support Vent Sodium Potassium Chloride Carbon Dioxide Anion Gap BUN Creatinine Creat Clearance w eGFR POC Glucometer 308 Random Glucose Lactic Acid Calcium Total Bilirubin AST ALT Alkaline Phosphatase Creatine Kinase Troponin I Total Protein Albumin Total Amylase 03/02/17 03/02/17 03/02/17 20:03 20:03 20:03 WBC RBC Hgb Hct MCV MCHC RDW Plt Count MPV Neutrophils % Lymphocytes % Monocytes % Eosinophils % Basophils % Band Neutrophils Metamyelocytes Differential Comment Platelet Estimate RBC Morphology Hypochromic-Microcytic Basophilic Stippling Microcytosis Tear Drop Cells Stomatocytes Morphology Comment INR 0.97 Puncture Site ABG pH ABG pCO2 at Pt Temp ABG pO2 at Pt Temp ABG HCO3 ABG O2 Sat (Measured) ABG O2 Content ABG Base Excess Francis Test O2 Delivery Device Oxygen Flow Rate Vent Mode Vent Rate Mechanical Rate PEEP Pressure Support Vent Sodium 142 Potassium 4.5 Chloride 100 Carbon Dioxide 27 Anion Gap 15 BUN 21 H Creatinine 0.7 Creat Clearance w eGFR > 60 POC Glucometer Random Glucose 318 H* D Lactic Acid 6.091 H* Calcium 8.2 L Total Bilirubin 0.3 D AST 83 H D ALT 166 H D Alkaline Phosphatase 118 H D Creatine Kinase Troponin I < 0.02 Total Protein 6.6 Albumin 3.0 L Total Amylase 03/02/17 03/03/17 03/03/17 20:15 00:26 03:33 WBC RBC Hgb Hct MCV MCHC RDW Plt Count MPV Neutrophils % Lymphocytes % Monocytes % Eosinophils % Basophils % Band Neutrophils Metamyelocytes Differential Comment Platelet Estimate RBC Morphology Hypochromic-Microcytic Basophilic Stippling Microcytosis Tear Drop Cells Stomatocytes Morphology Comment INR Puncture Site Right radial Md puncture ABG pH 7.40 D 7.46 H ABG pCO2 at Pt Temp 49.6 H D 43.8 ABG pO2 at Pt Temp 99.6 D 59.7 L D ABG HCO3 29.8 H 31.0 H ABG O2 Sat (Measured) 98.1 91.5 ABG O2 Content 13.2 L 12.1 L ABG Base Excess 4.7 H 6.8 H Francis Test Positive Not applicable O2 Delivery Device Vent Mech vent Oxygen Flow Rate 50 50% Vent Mode A/c A/c Vent Rate 20 25 Mechanical Rate Yes Yes PEEP 5.0 5.0 Pressure Support Vent 450 350 Sodium Potassium Chloride Carbon Dioxide Anion Gap BUN Creatinine Creat Clearance w eGFR POC Glucometer 243.42135 Random Glucose Lactic Acid Calcium Total Bilirubin AST ALT Alkaline Phosphatase Creatine Kinase Troponin I Total Protein Albumin Total Amylase 03/03/17 03/03/17 03/03/17 04:18 05:04 05:30 WBC 15.1 H D RBC 3.37 L Hgb 8.6 L D Hct 27.4 L D MCV 81.3 MCHC 31.3 L RDW 18.0 H Plt Count 150 D MPV 9.1 Neutrophils % 98.0 H Lymphocytes % 1.3 L D Monocytes % 0.6 L D Eosinophils % 0.0 Basophils % 0.1 Band Neutrophils Metamyelocytes Differential Comment Platelet Estimate RBC Morphology Hypochromic-Microcytic Basophilic Stippling Microcytosis Tear Drop Cells Stomatocytes Morphology Comment INR Puncture Site ABG pH ABG pCO2 at Pt Temp ABG pO2 at Pt Temp ABG HCO3 ABG O2 Sat (Measured) ABG O2 Content ABG Base Excess Francis Test O2 Delivery Device Oxygen Flow Rate Vent Mode Vent Rate Mechanical Rate PEEP Pressure Support Vent Sodium Potassium Chloride Carbon Dioxide Anion Gap BUN Creatinine Creat Clearance w eGFR POC Glucometer 231.29261 291.52807 Random Glucose Lactic Acid Calcium Total Bilirubin AST ALT Alkaline Phosphatase Creatine Kinase Troponin I Total Protein Albumin Total Amylase 03/03/17 03/03/17 03/03/17 05:30 05:30 05:30 WBC RBC Hgb Hct MCV MCHC RDW Plt Count MPV Neutrophils % Lymphocytes % Monocytes % Eosinophils % Basophils % Band Neutrophils Metamyelocytes Differential Comment Platelet Estimate RBC Morphology Hypochromic-Microcytic Basophilic Stippling Microcytosis Tear Drop Cells Stomatocytes Morphology Comment INR 1.04 Puncture Site ABG pH ABG pCO2 at Pt Temp ABG pO2 at Pt Temp ABG HCO3 ABG O2 Sat (Measured) ABG O2 Content ABG Base Excess Francis Test O2 Delivery Device Oxygen Flow Rate Vent Mode Vent Rate Mechanical Rate PEEP Pressure Support Vent Sodium 142 Potassium 3.3 L D Chloride 99 Carbon Dioxide 32 Anion Gap 11 BUN 26 H D Creatinine 0.7 Creat Clearance w eGFR > 60 POC Glucometer Random Glucose 203 H D Lactic Acid Calcium 7.7 L Total Bilirubin 0.4 D AST 52 H D ALT 156 H Alkaline Phosphatase 83 D Creatine Kinase 43 Troponin I 0.06 H Total Protein 5.3 L Albumin 2.3 L D Total Amylase 41 D 03/03/17 05:30 WBC RBC Hgb Hct MCV MCHC RDW Plt Count MPV Neutrophils % Lymphocytes % Monocytes % Eosinophils % Basophils % Band Neutrophils Metamyelocytes Differential Comment Platelet Estimate RBC Morphology Hypochromic-Microcytic Basophilic Stippling Microcytosis Tear Drop Cells Stomatocytes Morphology Comment INR Puncture Site ABG pH ABG pCO2 at Pt Temp ABG pO2 at Pt Temp ABG HCO3 ABG O2 Sat (Measured) ABG O2 Content ABG Base Excess Francis Test O2 Delivery Device Oxygen Flow Rate Vent Mode Vent Rate Mechanical Rate PEEP Pressure Support Vent Sodium Potassium Chloride Carbon Dioxide Anion Gap BUN Creatinine Creat Clearance w eGFR POC Glucometer Random Glucose Lactic Acid 2.629 H* Calcium Total Bilirubin AST ALT Alkaline Phosphatase Creatine Kinase Troponin I Total Protein Albumin Total Amylase Active Medications Generic Name Dose Route Start Last Admin Trade Name Freq PRN Reason Stop Dose Admin Acetaminophen 1,000 mg 02/26/17 20:20 Tylenol - PO Q6H PRN PAIN Acetylcysteine 200 mg 02/25/17 18:00 03/03/17 06:17 Mucomyst 20 Oral / Inh Use Only* NEB 200 mg QIDR EMMY Administration Albuterol Sulfate 1 amp 03/02/17 16:34 03/03/17 00:05 Ventolin 0.083% Nebulizer Soln - NEB 1 amp Q2H PRN Administration SHORT OF BREATH/WHEEZING Albuterol/Ipratropium 1 amp 03/03/17 06:00 03/03/17 06:16 Duoneb - NEB 1 amp QIDR EMMY Administration Alprazolam 0.5 mg 03/02/17 14:00 03/03/17 06:23 Xanax - PO 0.5 mg TID EMMY Administration Baclofen 20 mg 02/23/17 14:00 03/03/17 06:20 Lioresal - PO 20 mg TID EMM[facility] Administration Budesonide/Formoterol Fumarate 2 puff 02/23/17 10:00 03/03/17 10:17 Symbicort 160/4.5mcg - IH Not Given BID [facility] Cholecalciferol 2,000 unit 02/24/17 10:00 03/03/17 10:52 Vitamin D3 - PO 2,000 unit DAILY [facility] Administration Diphenhydramine HCl 25 mg 02/23/17 17:32 Benadryl Oral Solution - PO Q4H PRN FOR ITCHING Docusate Sodium 100 mg 02/26/17 20:19 02/26/17 21:49 Colace - PO 100 mg BID PRN Administration CONSTIPATION Doxepin HCl 25 mg 02/23/17 22:00 03/02/17 23:21 Sinequan - PO 25 mg HS EMMY Administration Eletriptan 40 mg 02/24/17 10:38 03/02/17 10:54 Relpax - PO 40 mg Q6H PRN Administration HEADACHE Gabapentin 300 mg 02/23/17 14:00 03/03/17 06:23 Neurontin - PO 300 mg TID EMMY Administration Guaifenesin 600 mg 02/26/17 22:00 03/03/17 10:16 Mucinex - PO 600 mg BID [facility] Administration Guaifenesin 10 ml 02/26/17 17:39 02/28/17 05:52 Robitussin - PO 10 ml Q6H PRN Administration COUGH Heparin Sodium (Porcine) 5,000 unit 02/23/17 22:00 03/03/17 06:21 Heparin - SQ 5,000 unit TID EMM[facility] Administration Hydromorphone HCl 1 mg 02/26/17 20:16 03/03/17 06:30 Dilaudid Injection - IVPB 1 mg Q4H PRN Administration PAIN Propofol 100 mls @ 1.81 mls/hr 03/02/17 19:45 03/02/17 19:45 Diprivan - IVPB 1.81 mls/hr TITR EMM[facility] Administration Protocol 5 MCG/KG/MIN Potassium Chloride 100 mls @ 100 mls/hr 03/03/17 08:30 03/03/17 11:01 Potassium Chloride 10 Meq Premix Ivpb - IVPB 03/03/17 11:29 100 mls/hr Q60M EMM[facility] Administration Sodium Chloride 1,000 mls @ 75 mls/hr 03/03/17 08:00 03/03/17 10:14 Normal Saline - IV 75 mls/hr ASDIR [facility] Administration Insulin Aspart 1 vial 03/03/17 11:00 Novolog Vial Sliding Scale - SQ ACHS [facility] Protocol Levothyroxine Sodium 25 mcg 02/23/17 10:00 03/03/17 06:20 Synthroid - PO 25 mcg DAILY@0700 [facility] Administration Loperamide HCl 2 mg 03/01/17 11:04 Imodium - PO Q8H PRN DIARRHEA Methylprednisolone Sodium Succinate 40 mg 03/02/17 21:00 03/03/17 10:08 Solu-Medrol - IVPB 40 mg Q6H-IV [facility]MM[facility] Administration Mometasone Furoate 2 puff 03/02/17 16:45 03/03/17 10:16 Asmanex 220mcg - IH Not Given DAILY [facility] Multi-Ingredient Ointment 1 applic 02/24/17 10:30 03/03/17 10:17 Zinc Oxide TP 1 applic BID [facility] Administration Multivitamins/Minerals/Vitamin C 1 tab 02/23/17 10:00 03/03/17 10:17 Tab-A-Vit - PO 1 tab DAILY [facility]MM[facility] Administration Vortioxetine ( 1 each 02/25/17 08:00 03/02/17 09:38 Trintellix) 10 Mg PO 1 each Tablet (Pt's Own) DAILY@0800 [facility] Administration Nystatin 500,000 units 02/27/17 18:00 03/03/17 07:22 Nystatin Oral Suspension - PO Not Given Q6HPO EMM[facility] Ondansetron HCl 4 mg 02/23/17 08:18 03/02/17 07:12 Zofran Injection IVPB 4 mg Q6H PRN Administration NAUSEA Pancrelipase 3 cap 04/04/17 12:00 03/03/17 10:18 Creon 6,000 Units Capsule PO 3 cap TIDCM [facility] Administration Pantoprazole Sodium 40 mg 02/24/17 11:30 03/03/17 10:15 Protonix - PO 40 mg DAILY [facility] Administration Piperacillin Sod/Tazobactam Sod 3.375 gm 03/03/17 02:00 Zosyn 3.375gm Ivpb (Pre-Docked) IVPB Q8H-IV [facility] Protocol Roflumilast 500 mcg 02/23/17 10:00 03/03/17 10:16 Daliresp - PO 500 mcg DAILY [facility] Administration Zolpidem Tartrate 10 mg 02/26/17 20:21 03/01/17 21:38 Ambien - PO 10 mg HS PRN Administration INSOMNIA ASSESSMENT/PLAN: Patient is a 51 year old female with a past medical history of proximal atrial fib, hypertension, diabetes, COPD (home oxygen dependent), asthma, tracheostomy , uterine cancer, anxiety, depression and bipolar disorder. She presents to the ED on 02/23/2017 with nausea, diarrhea, productive cough, and left sided body pain since yesterday. She states she is currently on doxycycline, but reports having left lower sided body aches and diarrhea since taking this medication. She reports her cough has been persistent and productive of yellow sputum. She states the cough keeps her up at night. She was admitted to [place] with c/o of abdominal pain, diarrhea and acute COPD exacerbation. Imaging: Chest Xray 02/23/2017 - lungs better aerated - increased markings diminished. Chest Xray 03/02/2017 - shallow respiration, no pulmonary vasc., no large pl eff. , or pneumo. On my read shows increased congestion changes on left lung Pulmonary: Respiratory Failure secondary to COPD excerbation - acute Assessment/Plan: Patient intubated Attempted cpap trial today, but patient was unable to tolerate Daily ABGs and another wean off will be attempted in a.m. On light sedation of propofol, fentanyl Solumedrol 40mg q6m Albuterol PRN On zosyn and vanco as per ID Pulmonary following ID: Leukocytosis - acute Assessment/Plan: Likely steroid induced vs. pneumonia On Vanco and Zosyn Blood and urine cultures pending GI: Elevated AST/ALT Assessment/Plan: Psyche Bipolar/anxiety/depression Assessment/Plan: continue psyche home meds Endocrine: Diabetes mellitus - chronic - elevated Assessment/Plan: Novolog sliding scale Monitor BGMs while on Solumedrol Cardiology: Proxy Atrial Fib Currently in Sinus rhythm On lopressor PO, Cardizem FEN Fluid: NS @ 75 cc/hr Electrolytes: hypokalemia: repleted with 3 k riders Nutrition: NPO - has NGT Prophylaxis DVT: SCD, heparin SQ GI: Protonix Disposition: Requires ICU monitoring. Full Code. Visit type - Emergency Visit Emergency Visit: Yes ED Registration Date: 02/24/17 Care time: The patient presented to the Emergency Department on the above date and was hospitalized for further evaluation of their emergent condition. - New Patient This patient is new to me today: No - Critical Care Critical Care patient: Yes Total Critical Care Time (in minutes): 60 Critical Care Statement: The care of this patient involved high complexity decision making to prevent further life threatening deterioration of the patient 's condition and/or to evalute & treat vital organ system(s) failure or risk of failure. - Discharge Referral Referred to [facility] No
--- NOTE | 2017-03-03 11:28 | PN ---
Progress Note (short form) - Note Progress Note: events noted hypercapneic respiratory arrest yesterday evening intubated now alert transient incrase in WBC to 50k now 15 cultures sent, started on vanco/zosyn cxray - increased markings Vital Signs Period Temp Pulse Resp BP Sys/Dan Pulse Ox Last 24 Hr 97.5 F-98.9 F 93-112 14-25 128-139/65-98 99 cor-rrr lungs decreased bs at bases abd soft,nt ext no edema CBC, BMP 03/03/17 05:30 03/03/17 05:30 Microbiology 03/02/17 11:20 Blood Culture - Preliminary Blood - Peripheral Venous NO GROWTH OBTAINED AFTER 24 HOURS, INCUBATION TO CONTINUE FOR 4 DAYS. Current Medications Acetaminophen (Tylenol -) 1,000 mg PO Q6H PRN PRN Reason: PAIN Acetylcysteine (Mucomyst 20 Oral / Inh Use Only*) 200 mg NEB QIDR [facility] Last Admin: 03/03/17 06:17 Dose: 200 mg Albuterol Sulfate (Ventolin 0.083% Nebulizer Soln -) 1 amp NEB Q2H PRN PRN Reason: SHORT OF BREATH/WHEEZING Last Admin: 03/03/17 00:05 Dose: 1 amp Albuterol/Ipratropium (Duoneb -) 1 amp NEB QIDR [facility] Last Admin: 03/03/17 06:16 Dose: 1 amp Alprazolam (Xanax -) 0.5 mg PO TID [facility] Last Admin: 03/03/17 06:23 Dose: 0.5 mg Baclofen (Lioresal -) 20 mg PO TID [facility] Last Admin: 03/03/17 06:20 Dose: 20 mg Budesonide/Formoterol Fumarate (Symbicort 160/4.5mcg -) 2 puff IH BID [facility] Last Admin: 03/03/17 10:17 Dose: Not Given Cholecalciferol (Vitamin D3 -) 2,000 unit PO DAILY [facility] Last Admin: 03/03/17 10:52 Dose: 2,000 unit Diphenhydramine HCl (Benadryl Oral Solution -) 25 mg PO Q4H PRN PRN Reason: FOR ITCHING Docusate Sodium (Colace -) 100 mg PO BID PRN PRN Reason: CONSTIPATION Last Admin: 02/26/17 21:49 Dose: 100 mg Doxepin HCl (Sinequan -) 25 mg PO HS [facility] Last Admin: 03/02/17 23:21 Dose: 25 mg Eletriptan (Relpax -) 40 mg PO Q6H PRN PRN Reason: HEADACHE Last Admin: 03/02/17 10:54 Dose: 40 mg Gabapentin (Neurontin -) 300 mg PO TID [facility] Last Admin: 03/03/17 06:23 Dose: 300 mg Guaifenesin (Mucinex -) 600 mg PO BID [facility] Last Admin: 03/03/17 10:16 Dose: 600 mg Guaifenesin (Robitussin -) 10 ml PO Q6H PRN PRN Reason: COUGH Last Admin: 02/28/17 05:52 Dose: 10 ml Heparin Sodium (Porcine) (Heparin -) 5,000 unit SQ TID [facility] Last Admin: 03/03/17 06:21 Dose: 5,000 unit Hydromorphone HCl (Dilaudid Injection -) 1 mg IVPB Q4H PRN PRN Reason: PAIN Last Admin: 03/03/17 06:30 Dose: 1 mg Propofol (Diprivan -) 100 mls @ 1.81 mls/hr IVPB TITR EMMY; 5 MCG/KG/MIN PRN Reason: Protocol Last Admin: 03/02/17 19:45 Dose: 1.81 mls/hr Potassium Chloride (Potassium Chloride 10 Meq Premix Ivpb -) 100 mls @ 100 mls/ hr IVPB Q60M [facility] Stop: 03/03/17 11:29 Last Admin: 03/03/17 11:01 Dose: 100 mls/hr Sodium Chloride (Normal Saline -) 1,000 mls @ 75 mls/hr IV ASDIR [facility] Last Admin: 03/03/17 10:14 Dose: 75 mls/hr Insulin Aspart (Novolog Vial Sliding Scale -) 1 vial SQ ACHS [facility] PRN Reason: Protocol Levothyroxine Sodium (Synthroid -) 25 mcg PO DAILY@0700 [facility] Last Admin: 03/03/17 06:20 Dose: 25 mcg Loperamide HCl (Imodium -) 2 mg PO Q8H PRN PRN Reason: DIARRHEA Methylprednisolone Sodium Succinate (Solu-Medrol -) 40 mg IVPB Q6H-IV [facility] Last Admin: 03/03/17 10:08 Dose: 40 mg Mometasone Furoate (Asmanex 220mcg -) 2 puff IH DAILY [facility] Last Admin: 03/03/17 10:16 Dose: Not Given Multi-Ingredient Ointment (Zinc Oxide) 1 applic TP BID [facility] Last Admin: 03/03/17 10:17 Dose: 1 applic Multivitamins/Minerals/Vitamin C (Tab-A-Vit -) 1 tab PO DAILY [facility] Last Admin: 03/03/17 10:17 Dose: 1 tab Vortioxetine ( Trintellix) 10 Mg Tablet (Pt's Own) 1 each PO DAILY@0800 [facility] Last Admin: 03/02/17 09:38 Dose: 1 each Nystatin (Nystatin Oral Suspension -) 500,000 units PO Q6HPO [facility] Last Admin: 03/03/17 07:22 Dose: Not Given Ondansetron HCl (Zofran Injection) 4 mg IVPB Q6H PRN PRN Reason: NAUSEA Last Admin: 03/02/17 07:12 Dose: 4 mg Pancrelipase (Creon Dr 6,000 Units Capsule) 3 cap PO TIDCM [facility] Last Admin: 03/03/17 10:18 Dose: 3 cap Pantoprazole Sodium (Protonix -) 40 mg PO DAILY [facility] Last Admin: 03/03/17 10:15 Dose: 40 mg Piperacillin Sod/Tazobactam Sod (Zosyn 3.375gm Ivpb (Pre-Docked)) 3.375 gm IVPB Q8H-IV [facility]MM[facility] PRN Reason: Protocol Roflumilast (Daliresp -) 500 mcg PO DAILY [facility] Last Admin: 03/03/17 10:16 Dose: 500 mcg Zolpidem Tartrate (Ambien -) 10 mg PO HS PRN PRN Reason: INSOMNIA Last Admin: 03/01/17 21:38 Dose: 10 mg a/p respiratory failure-s/p arrest copd continue vanco/zosyn pending culture results d/w hospitilist service
[2017-03-03] MEDS: FENTANYL INJECTION 500 MCG in DEXTROSE 5%-WATER - 90 ML IJ SCH ×2 (11:30→15:30)
--- NOTE | 2017-03-03 11:46 | PN ---
Teaching Attending Note Name of Resident: Nabor Weldon ATTENDING PHYSICIAN STATEMENT I saw and evaluated the patient. I reviewed the resident's note and discussed the case with the resident. I agree with the resident's findings and plan as documented. SUBJECTIVE: Pt seen and examined in the ICU. Events overnight noted, pt intubated, awake off sedation but not tolerating CPAP/PS trials. Tachypneic with abdominal breathing, placed back on sedation. OBJECTIVE: Last Vital Signs Temp Pulse Resp BP Pulse Ox 98.9 F 111 H 28 H 131/98 99 03/03/17 10:00 03/03/17 10:00 03/03/17 11:26 03/03/17 10:00 03/02/17 21:00 Intake & Output 02/28/17 03/01/17 03/02/17 03/03/17 23:59 23:59 23:59 23:59 Intake Total 230 394 1010 1251 Output Total 500 Balance 854 [phone] Gen: intubated, awake, agitated Heart: tachycardic, regular Lung: bilateral rhonchi, wheezes Abd: soft, nontender Ext: no edema CBC, BMP 03/03/17 05:30 03/03/17 05:30 Active Medications Acetaminophen (Tylenol -) 1,000 mg PO Q6H PRN PRN Reason: PAIN Acetylcysteine (Mucomyst 20 Oral / Inh Use Only*) 200 mg NEB QIDR PENDING SALE TO [facility] Last Admin: 03/03/17 11:27 Dose: 200 mg Albuterol Sulfate (Ventolin 0.083% Nebulizer Soln -) 1 amp NEB Q2H PRN PRN Reason: SHORT OF BREATH/WHEEZING Last Admin: 03/03/17 00:05 Dose: 1 amp Albuterol/Ipratropium (Duoneb -) 1 amp NEB QIDR EMMY Last Admin: 03/03/17 11:27 Dose: 1 amp Alprazolam (Xanax -) 0.5 mg PO TID PENDING SALE TO [facility] Last Admin: 03/03/17 06:23 Dose: 0.5 mg Baclofen (Lioresal -) 20 mg PO TID PENDING SALE TO [facility] Last Admin: 03/03/17 06:20 Dose: 20 mg Budesonide/Formoterol Fumarate (Symbicort 160/4.5mcg -) 2 puff IH BID PENDING SALE TO [facility] Last Admin: 03/03/17 10:17 Dose: Not Given Cholecalciferol (Vitamin D3 -) 2,000 unit PO DAILY PENDING SALE TO [facility] Last Admin: 03/03/17 10:52 Dose: 2,000 unit Diphenhydramine HCl (Benadryl Oral Solution -) 25 mg PO Q4H PRN PRN Reason: FOR ITCHING Docusate Sodium (Colace -) 100 mg PO BID PRN PRN Reason: CONSTIPATION Last Admin: 02/26/17 21:49 Dose: 100 mg Doxepin HCl (Sinequan -) 25 mg PO HS PENDING SALE TO [facility] Last Admin: 03/02/17 23:21 Dose: 25 mg Eletriptan (Relpax -) 40 mg PO Q6H PRN PRN Reason: HEADACHE Last Admin: 03/02/17 10:54 Dose: 40 mg Gabapentin (Neurontin -) 300 mg PO TID PENDING SALE TO [facility] Last Admin: 03/03/17 06:23 Dose: 300 mg Guaifenesin (Mucinex -) 600 mg PO BID PENDING SALE TO [facility] Last Admin: 03/03/17 10:16 Dose: 600 mg Guaifenesin (Robitussin -) 10 ml PO Q6H PRN PRN Reason: COUGH Last Admin: 02/28/17 05:52 Dose: 10 ml Heparin Sodium (Porcine) (Heparin -) 5,000 unit SQ TID PENDING SALE TO [facility] Last Admin: 03/03/17 06:21 Dose: 5,000 unit Hydromorphone HCl (Dilaudid Injection -) 1 mg IVPB Q4H PRN PRN Reason: PAIN Last Admin: 03/03/17 06:30 Dose: 1 mg Propofol (Diprivan -) 100 mls @ 1.81 mls/hr IVPB TITR EMMY; 5 MCG/KG/MIN PRN Reason: Protocol Last Admin: 03/02/17 19:45 Dose: 1.81 mls/hr Sodium Chloride (Normal Saline -) 1,000 mls @ 75 mls/hr IV ASDIR PENDING SALE TO [facility] Last Admin: 03/03/17 10:14 Dose: 75 mls/hr Fentanyl 500 mcg/ Dextrose 100 mls @ 2 mls/hr IJ TITR EMMY PRN Reason: 10 MCG/HR Insulin Aspart (Novolog Vial Sliding Scale -) 1 vial SQ ACHS PENDING SALE TO [facility] PRN Reason: Protocol Levothyroxine Sodium (Synthroid -) 25 mcg PO DAILY@0700 PENDING SALE TO [facility] Last Admin: 03/03/17 06:20 Dose: 25 mcg Loperamide HCl (Imodium -) 2 mg PO Q8H PRN PRN Reason: DIARRHEA Methylprednisolone Sodium Succinate (Solu-Medrol -) 40 mg IVPB Q6H-IV PENDING SALE TO [facility] Last Admin: 03/03/17 10:08 Dose: 40 mg Mometasone Furoate (Asmanex 220mcg -) 2 puff IH DAILY PENDING SALE TO [facility] Last Admin: 03/03/17 10:16 Dose: Not Given Multi-Ingredient Ointment (Zinc Oxide) 1 applic TP BID PENDING SALE TO [facility] Last Admin: 03/03/17 10:17 Dose: 1 applic Multivitamins/Minerals/Vitamin C (Tab-A-Vit -) 1 tab PO DAILY PENDING SALE TO [facility] Last Admin: 03/03/17 10:17 Dose: 1 tab Vortioxetine ( Trintellix) 10 Mg Tablet (Pt's Own) 1 each PO DAILY@0800 PENDING SALE TO [facility] Last Admin: 03/02/17 09:38 Dose: 1 each Nystatin (Nystatin Oral Suspension -) 500,000 units PO Q6HPO PENDING SALE TO [facility] Last Admin: 03/03/17 07:22 Dose: Not Given Ondansetron HCl (Zofran Injection) 4 mg IVPB Q6H PRN PRN Reason: NAUSEA Last Admin: 03/02/17 07:12 Dose: 4 mg Pancrelipase (Creon Dr 6,000 Units Capsule) 3 cap PO TIDCM PENDING SALE TO [facility] Last Admin: 03/03/17 10:18 Dose: 3 cap Pantoprazole Sodium (Protonix -) 40 mg PO DAILY PENDING SALE [facility] Last Admin: 03/03/17 10:15 Dose: 40 mg Roflumilast (Daliresp -) 500 mcg PO DAILY PENDING SALE TO [facility] Last Admin: 03/03/17 10:16 Dose: 500 mcg Vancomycin HCl (Vancomycin (Pre-Docked)) 1,000 mg IVPB Q12H EMMY PRN Reason: Protocol Zolpidem Tartrate (Ambien -) 10 mg PO HS PRN PRN Reason: INSOMNIA Last Admin: 03/01/17 21:38 Dose: 10 mg ASSESSMENT AND PLAN: Acute on Chronic Hypoxic and Hypercapneic Respiratory Failure Acute COPD/Asthma Exacerbation r/o Pneumonia Atrial Fibrillation HTN Chronic Pain Syndrome/Opiate Dependent - empiric antibiotics - continue medrol at current dose - inhaled bronchodilators standing and PRN - f/u cultures - replete lytes - titrate FiO2 to keep SpO2 >90% - sedate for vent synchrony - rate controlled - lighten sedation in AM to assess mental status and weaning trials - enteral feeds tomorrow if unable to extubate - DVT/GI prophylaxis - continue ICU monitoring critical care time spent reviewing chart, evaluating patient and formulating plan 40 min
--- NOTE | 2017-03-03 12:02 | PN ---
Physical Exam: SUBJECTIVE: Patient seen and examined, patient intubated, off from sedation, not tolerating cpap, will put her back on vcv and on sedation ( propofol and fentanyl) patient was agitated on propofol and coco so midazolam was added. OBJECTIVE: Vital Signs Period Temp Pulse Resp BP Sys/Dan Pulse Ox Last 24 Hr 97.5 F-98.9 F 93-112 14-28 128-139/65-98 99 GENERAL: intubated awake, agitated, communicate with writing HEAD: Normal with no signs of trauma. EYES: PERRL, ENT: Ears normal, nares patent, moist mucous membranes. NECK: Trachea midline, full range of motion, supple. LUNGS: Breath sounds equal, b/l rales and wheez. HEART: Regular rate, sis2 normal . ABDOMEN: Soft, nontender, nondistended, normoactive bowel sounds, no guarding, no rebound, EXTREMITIES: 2+ pulses, warm, no edema. SKIN: Warm, dry, Laboratory Results - last 24 hr 03/02/17 03/02/17 03/02/17 09:10 11:51 17:20 WBC RBC Hgb Hct MCV MCHC RDW Plt Count MPV Neutrophils % 96.0 H Lymphocytes % 1.0 L D Monocytes % 1.0 L Eosinophils % Basophils % Band Neutrophils 1.0 Metamyelocytes 1 Differential Comment Manual diff done Platelet Estimate RBC Morphology Hypochromic-Microcytic 2+ Basophilic Stippling 1+ Microcytosis 1+ Tear Drop Cells 1+ Stomatocytes 4+ Morphology Comment Slide scanned INR Puncture Site ABG pH ABG pCO2 at Pt Temp ABG pO2 at Pt Temp ABG HCO3 ABG O2 Sat (Measured) ABG O2 Content ABG Base Excess Francis Test O2 Delivery Device Oxygen Flow Rate Vent Mode Vent Rate Mechanical Rate PEEP Pressure Support Vent Sodium Potassium Chloride Carbon Dioxide Anion Gap BUN Creatinine Creat Clearance w eGFR POC Glucometer 326 165 Random Glucose Lactic Acid Calcium Total Bilirubin AST ALT Alkaline Phosphatase Creatine Kinase Troponin I Total Protein Albumin Total Amylase 03/02/17 03/02/17 03/02/17 19:12 19:20 20:03 WBC 50.9 H* D RBC 4.16 Hgb 10.7 D Hct 34.5 D MCV 83.0 MCHC 31.0 L RDW 18.5 H Plt Count 392 D MPV 9.8 D Neutrophils % 88.0 H Lymphocytes % 5.0 L D Monocytes % 4.0 D Eosinophils % Basophils % Band Neutrophils 3.0 D Metamyelocytes Differential Comment Platelet Estimate Adequate RBC Morphology Appears normal Hypochromic-Microcytic Basophilic Stippling Microcytosis Tear Drop Cells Stomatocytes Morphology Comment INR Puncture Site Right radial ABG pH 6.98 L* D ABG pCO2 at Pt Temp 111.0 H* D ABG pO2 at Pt Temp 283.0 H* ABG HCO3 25.0 ABG O2 Sat (Measured) 99.1 H ABG O2 Content 15.8 ABG Base Excess -9.1 L Francis Test Positive O2 Delivery Device Ambu-bag Oxygen Flow Rate 100% Vent Mode Vent Rate Mechanical Rate PEEP Pressure Support Vent Sodium Potassium Chloride Carbon Dioxide Anion Gap BUN Creatinine Creat Clearance w eGFR POC Glucometer 308 Random Glucose Lactic Acid Calcium Total Bilirubin AST ALT Alkaline Phosphatase Creatine Kinase Troponin I Total Protein Albumin Total Amylase 03/02/17 03/02/17 03/02/17 20:03 20:03 20:03 WBC RBC Hgb Hct MCV MCHC RDW Plt Count MPV Neutrophils % Lymphocytes % Monocytes % Eosinophils % Basophils % Band Neutrophils Metamyelocytes Differential Comment Platelet Estimate RBC Morphology Hypochromic-Microcytic Basophilic Stippling Microcytosis Tear Drop Cells Stomatocytes Morphology Comment INR 0.97 Puncture Site ABG pH ABG pCO2 at Pt Temp ABG pO2 at Pt Temp ABG HCO3 ABG O2 Sat (Measured) ABG O2 Content ABG Base Excess Francis Test O2 Delivery Device Oxygen Flow Rate Vent Mode Vent Rate Mechanical Rate PEEP Pressure Support Vent Sodium 142 Potassium 4.5 Chloride 100 Carbon Dioxide 27 Anion Gap 15 BUN 21 H Creatinine 0.7 Creat Clearance w eGFR > 60 POC Glucometer Random Glucose 318 H* D Lactic Acid 6.091 H* Calcium 8.2 L Total Bilirubin 0.3 D AST 83 H D ALT 166 H D Alkaline Phosphatase 118 H D Creatine Kinase Troponin I < 0.02 Total Protein 6.6 Albumin 3.0 L Total Amylase 03/02/17 03/03/17 03/03/17 20:15 00:26 03:33 WBC RBC Hgb Hct MCV MCHC RDW Plt Count MPV Neutrophils % Lymphocytes % Monocytes % Eosinophils % Basophils % Band Neutrophils Metamyelocytes Differential Comment Platelet Estimate RBC Morphology Hypochromic-Microcytic Basophilic Stippling Microcytosis Tear Drop Cells Stomatocytes Morphology Comment INR Puncture Site Right radial Md puncture ABG pH 7.40 D 7.46 H ABG pCO2 at Pt Temp 49.6 H D 43.8 ABG pO2 at Pt Temp 99.6 D 59.7 L D ABG HCO3 29.8 H 31.0 H ABG O2 Sat (Measured) 98.1 91.5 ABG O2 Content 13.2 L 12.1 L ABG Base Excess 4.7 H 6.8 H Francis Test Positive Not applicable O2 Delivery Device Vent Mech vent Oxygen Flow Rate 50 50% Vent Mode A/c A/c Vent Rate 20 25 Mechanical Rate Yes Yes PEEP 5.0 5.0 Pressure Support Vent 450 350 Sodium Potassium Chloride Carbon Dioxide Anion Gap BUN Creatinine Creat Clearance w eGFR POC Glucometer 243.30061 Random Glucose Lactic Acid Calcium Total Bilirubin AST ALT Alkaline Phosphatase Creatine Kinase Troponin I Total Protein Albumin Total Amylase 03/03/17 03/03/17 03/03/17 04:18 05:04 05:30 WBC 15.1 H D RBC 3.37 L Hgb 8.6 L D Hct 27.4 L D MCV 81.3 MCHC 31.3 L RDW 18.0 H Plt Count 150 D MPV 9.1 Neutrophils % 98.0 H Lymphocytes % 1.3 L D Monocytes % 0.6 L D Eosinophils % 0.0 Basophils % 0.1 Band Neutrophils Metamyelocytes Differential Comment Platelet Estimate RBC Morphology Hypochromic-Microcytic Basophilic Stippling Microcytosis Tear Drop Cells Stomatocytes Morphology Comment INR Puncture Site ABG pH ABG pCO2 at Pt Temp ABG pO2 at Pt Temp ABG HCO3 ABG O2 Sat (Measured) ABG O2 Content ABG Base Excess Francis Test O2 Delivery Device Oxygen Flow Rate Vent Mode Vent Rate Mechanical Rate PEEP Pressure Support Vent Sodium Potassium Chloride Carbon Dioxide Anion Gap BUN Creatinine Creat Clearance w eGFR POC Glucometer 231.53430 291.99719 Random Glucose Lactic Acid Calcium Total Bilirubin AST ALT Alkaline Phosphatase Creatine Kinase Troponin I Total Protein Albumin Total Amylase 03/03/17 03/03/17 03/03/17 05:30 05:30 05:30 WBC RBC Hgb Hct MCV MCHC RDW Plt Count MPV Neutrophils % Lymphocytes % Monocytes % Eosinophils % Basophils % Band Neutrophils Metamyelocytes Differential Comment Platelet Estimate RBC Morphology Hypochromic-Microcytic Basophilic Stippling Microcytosis Tear Drop Cells Stomatocytes Morphology Comment INR 1.04 Puncture Site ABG pH ABG pCO2 at Pt Temp ABG pO2 at Pt Temp ABG HCO3 ABG O2 Sat (Measured) ABG O2 Content ABG Base Excess Francis Test O2 Delivery Device Oxygen Flow Rate Vent Mode Vent Rate Mechanical Rate PEEP Pressure Support Vent Sodium 142 Potassium 3.3 L D Chloride 99 Carbon Dioxide 32 Anion Gap 11 BUN 26 H D Creatinine 0.7 Creat Clearance w eGFR > 60 POC Glucometer Random Glucose 203 H D Lactic Acid Calcium 7.7 L Total Bilirubin 0.4 D AST 52 H D ALT 156 H Alkaline Phosphatase 83 D Creatine Kinase 43 Troponin I 0.06 H Total Protein 5.3 L Albumin 2.3 L D Total Amylase 41 D 03/03/17 05:30 WBC RBC Hgb Hct MCV MCHC RDW Plt Count MPV Neutrophils % Lymphocytes % Monocytes % Eosinophils % Basophils % Band Neutrophils Metamyelocytes Differential Comment Platelet Estimate RBC Morphology Hypochromic-Microcytic Basophilic Stippling Microcytosis Tear Drop Cells Stomatocytes Morphology Comment INR Puncture Site ABG pH ABG pCO2 at Pt Temp ABG pO2 at Pt Temp ABG HCO3 ABG O2 Sat (Measured) ABG O2 Content ABG Base Excess Francis Test O2 Delivery Device Oxygen Flow Rate Vent Mode Vent Rate Mechanical Rate PEEP Pressure Support Vent Sodium Potassium Chloride Carbon Dioxide Anion Gap BUN Creatinine Creat Clearance w eGFR POC Glucometer Random Glucose Lactic Acid 2.629 H* Calcium Total Bilirubin AST ALT Alkaline Phosphatase Creatine Kinase Troponin I Total Protein Albumin Total Amylase Active Medications Generic Name Dose Route Start Last Admin Trade Name Freq PRN Reason Stop Dose Admin Acetaminophen 1,000 mg 02/26/17 20:20 Tylenol - PO Q6H PRN PAIN Acetylcysteine 200 mg 02/25/17 18:00 03/03/17 11:27 Mucomyst 20 Oral / Inh Use Only* NEB 200 mg QIDR EMMY Administration Albuterol Sulfate 1 amp 03/02/17 16:34 03/03/17 00:05 Ventolin 0.083% Nebulizer Soln - NEB 1 amp Q2H PRN Administration SHORT OF BREATH/WHEEZING Albuterol/Ipratropium 1 amp 03/03/17 06:00 03/03/17 11:27 Duoneb - NEB 1 amp QIDR EMMY Administration Alprazolam 0.5 mg 03/02/17 14:00 03/03/17 06:23 Xanax - PO 0.5 mg TID EMMY Administration Baclofen 20 mg 02/23/17 14:00 03/03/17 06:20 Lioresal - PO 20 mg TID EMMY Administration Budesonide/Formoterol Fumarate 2 puff 02/23/17 10:00 03/03/17 10:17 Symbicort 160/4.5mcg - IH Not Given BID [facility] Cholecalciferol 2,000 unit 02/24/17 10:00 03/03/17 10:52 Vitamin D3 - PO 2,000 unit DAILY EMMY Administration Diphenhydramine HCl 25 mg 02/23/17 17:32 Benadryl Oral Solution - PO Q4H PRN FOR ITCHING Docusate Sodium 100 mg 02/26/17 20:19 02/26/17 21:49 Colace - PO 100 mg BID PRN Administration CONSTIPATION Doxepin HCl 25 mg 02/23/17 22:00 03/02/17 23:21 Sinequan - PO 25 mg HS EMMY Administration Eletriptan 40 mg 02/24/17 10:38 03/02/17 10:54 Relpax - PO 40 mg Q6H PRN Administration HEADACHE Gabapentin 300 mg 02/23/17 14:00 03/03/17 06:23 Neurontin - PO 300 mg TID EMMY Administration Guaifenesin 600 mg 02/26/17 22:00 03/03/17 10:16 Mucinex - PO 600 mg BID EMMY Administration Guaifenesin 10 ml 02/26/17 17:39 02/28/17 05:52 Robitussin - PO 10 ml Q6H PRN Administration COUGH Heparin Sodium (Porcine) 5,000 unit 02/23/17 22:00 03/03/17 06:21 Heparin - SQ 5,000 unit TID [facility] Administration Hydromorphone HCl 1 mg 02/26/17 20:16 03/03/17 06:30 Dilaudid Injection - IVPB 1 mg Q4H PRN Administration PAIN Propofol 100 mls @ 1.81 mls/hr 03/02/17 19:45 03/02/17 19:45 Diprivan - IVPB 1.81 mls/hr TITR EMMY Administration Protocol 5 MCG/KG/MIN Sodium Chloride 1,000 mls @ 75 mls/hr 03/03/17 08:00 03/03/17 10:14 Normal Saline - IV 75 mls/hr ASDIR EMMY Administration Fentanyl 500 mcg/ Dextrose 100 mls @ 2 mls/hr 03/03/17 11:45 IJ TITR EMMY 10 MCG/HR Insulin Aspart 1 vial 03/03/17 11:00 Novolog Vial Sliding Scale - SQ ACHS EMMY Protocol Levothyroxine Sodium 25 mcg 02/23/17 10:00 03/03/17 06:20 Synthroid - PO 25 mcg DAILY@0700 EMMY Administration Loperamide HCl 2 mg 03/01/17 11:04 Imodium - PO Q8H PRN DIARRHEA Methylprednisolone Sodium Succinate 40 mg 03/02/17 21:00 03/03/17 10:08 Solu-Medrol - IVPB 40 mg Q6H-IV EMMY Administration Mometasone Furoate 2 puff 03/02/17 16:45 03/03/17 10:16 Asmanex 220mcg - IH Not Given DAILY EMMY Multi-Ingredient Ointment 1 applic 02/24/17 10:30 03/03/17 10:17 Zinc Oxide TP 1 applic BID EMMY Administration Multivitamins/Minerals/Vitamin C 1 tab 02/23/17 10:00 03/03/17 10:17 Tab-A-Vit - PO 1 tab DAILY EMMY Administration Vortioxetine ( 1 each 02/25/17 08:00 03/02/17 09:38 Trintellix) 10 Mg PO 1 each Tablet (Pt's Own) DAILY@0800 EMMY Administration Nystatin 500,000 units 02/27/17 18:00 03/03/17 07:22 Nystatin Oral Suspension - PO Not Given Q6HPO EMMY Ondansetron HCl 4 mg 02/23/17 08:18 03/02/17 07:12 Zofran Injection IVPB 4 mg Q6H PRN Administration NAUSEA Pancrelipase 3 cap 02/24/17 12:00 03/03/17 10:[address] 6,000 Units Capsule PO 3 cap TIDCM EMMY Administration Pantoprazole Sodium 40 mg 02/24/17 11:30 03/03/17 10:15 Protonix - PO 40 mg DAILY EMMY Administration Roflumilast 500 mcg 02/23/17 10:00 03/03/17 10:16 Daliresp - PO 500 mcg DAILY EMMY Administration Vancomycin HCl 1,000 mg 03/03/17 15:00 Vancomycin (Pre-Docked) IVPB Q12H [facility] Protocol Zolpidem Tartrate 10 mg 02/26/17 20:21 03/01/17 21:38 Ambien - PO 10 mg HS PRN Administration INSOMNIA ASSESSMENT/PLAN: Hypercapnic Respiratory Failure secondary to copd excerbation -on ventilator support - unable to tolertae cpap trial - repeat abg in morning -Sedation with Propofol drip fentanyl and midazolam -Cont Albuterol nebs and Atrovent nebs -Cont Solumedrol 40mg q6 -Antibiotics as per id : vanco and zosyn -Aspiration precautions - monitor vitals - keep spo2 >90 :Leukocytosis: HCAP vs steroid response -follow Connelly culture - wbc decreased to 15.1 - antibiotics as per id vanco and zosyn Afib, HTN; hypertensive post arrest; troponin wnl start with metoprolol tartrate and cardiazem - Elevated AST/ALT/Alk phos - could be due to shock - improving - follow lft Neuro/Psyche: Anxiety, depression, chronic pain -Cont standing anti depressant -Cont neurontin and baclofen for chronic pain fluid : NS 75 ml/hr electrolyte : repeat in am nutrition; tube feed as per dietary recommendations Proph: Hep SQ/PPI gi pro : on protonix dispo : admit in icu Visit type - Emergency Visit Emergency Visit: Yes ED Registration Date: 02/24/17 Care time: The patient presented to the Emergency Department on the above date and was hospitalized for further evaluation of their emergent condition. - New Patient This patient is new to me today: Yes Date on this admission: 03/03/17 - Critical Care Critical Care patient: Yes Total Critical Care Time (in minutes): 60 Critical Care Statement: The care of this patient involved high complexity decision making to prevent further life threatening deterioration of the patient 's condition and/or to evalute & treat vital organ system(s) failure or risk of failure.
[2017-03-03] MEDS: INSULIN SLIDING SCALE (NOVOLOG) 1 VIAL SQ SCH ×3 (12:40→21:30)
--- NOTE | 2017-03-03 12:40 | EKG ---
Test Reason : Blood Pressure : / mmHG Vent. Rate : 116 BPM Atrial Rate : 116 BPM P-R Int : 122 ms QRS Dur : 080 ms QT Int : 312 ms P-R-T Axes : 047 047 063 degrees QTc Int : 433 ms SINUS TACHYCARDIA OTHERWISE NORMAL ECG WHEN COMPARED WITH ECG OF 23-FEB-2017 01:47, NONSPECIFIC T WAVE ABNORMALITY NO LONGER EVIDENT IN ANTERIOR LEADS CLINICAL CORRELATION IS RECOMMENDED BASELINE ARTIFACT Confirmed by ANA WRIGHT, TALON ([id number] on 03/03/2017 12:40:17 PM Referred By: Confirmed By:TALON PEREZ MD
[2017-03-03] MEDS ORDERED: MIDAZOLAM 100 MG in SODIUM CHLORIDE 100 ML IVPB SCH (13:45)
[2017-03-03] MEDS: PIPERACILLIN/TAZOB 3.375 GM/50 ML PRE-DOCKED IVPB SCH ×2 (14:22→18:47)
[2017-03-03] MEDS: VANCOMYCIN 1 GRAM (PRE-DOCKED) 1,000 MG/250 ML BAG IVPB SCH (14:23)
[2017-03-03] MEDS: METOPROLOL TARTRATE 25 MG TABLET (FP) PO SCH ×2 (14:49→21:24)
[2017-03-03] MEDS: dilTIAZem HCL 60 MG TABLET (FP) PO SCH (18:47)
[2017-03-03] MEDS ORDERED: PT OWN MED DRAWER 7, Y5N ONE (21:07)
[2017-03-03] MEDS: DOXEPIN HCL 25 MG CAPSULE PO SCH (21:22)
[2017-03-04] MEDS: ALBUTEROL SO4 2.5/IPRATROPIUM 0.5 INH SOL 3 ML VIAL.NEB. NEB SCH ×4 (00:10→18:27)
[2017-03-04] MEDS: ACETYLCYSTEINE 20% 200MG/ML 4 ML VIAL *FOR ORAL / INH USE ONLY NEB SCH ×4 (00:10→18:25)
[2017-03-04] MEDS: dilTIAZem HCL 60 MG TABLET (FP) PO SCH ×4 (00:51→17:31)
[2017-03-04] MEDS: NYSTATIN 500,000 UNITS/5 ML SUSPENSION PO SCH ×4 (00:51→17:32)
[2017-03-04] MEDS: PIPERACILLIN/TAZOB 3.375 GM/50 ML PRE-DOCKED IVPB SCH ×3 (01:11→17:31)
[2017-03-04] MEDS: methylPREDNISolone NA SUCC 40 MG/1 ML VIAL IVPB SCH ×4 (02:06→21:34)
[2017-03-04] MEDS: VANCOMYCIN 1 GRAM (PRE-DOCKED) 1,000 MG/250 ML BAG IVPB SCH ×2 (02:06→15:29)
[2017-03-04] MEDS: HEPARIN NA (PORCINE) 5,000 UNITS/ML 1ML VIAL SQ SCH ×3 (05:41→21:34)
[2017-03-04] MEDS: GABAPENTIN 300 MG CAPSULE (FP) PO SCH ×4 (05:43→21:48)
[2017-03-04] MEDS: BACLOFEN 10 MG TABLET (FP) PO SCH ×3 (05:43→21:47)
[2017-03-04] MEDS: METOPROLOL TARTRATE 25 MG TABLET (FP) PO SCH ×4 (05:43→21:46)
[2017-03-04] MEDS: LEVOTHYROXINE NA 25 MCG TABLET (FP) PO SCH (06:11)
[2017-03-04] MEDS: INSULIN SLIDING SCALE (NOVOLOG) 1 VIAL SQ SCH ×4 (06:12→22:04)
[2017-03-04 06:46] LABS: MCH 25.9 pg (25.7-33.7); MCHC 31.9 g/dl (32.0-36.0); MEAN CELL VOLUME 81.2 fl (80-96); MEAN PLT VOLUME 9.9 fl (7.5-11.1); NEUTROPHILS 95.7 % (42.8-82.8); PLATELET COUNT 164 K/MM3 (134-434); WHITE BLOOD COUNT 14.2 K/mm3 (4.0-10.0)
[2017-03-04 07:10] LABS: ALBUMIN 1.9 g/dl (3.4-5.0); AMYLASE 28 U/L (25-115); ANION GAP 11 (8-16); CALCIUM 7.1 mg/dL (8.5-10.1); CO2 30 mmol/L (21-32); CREATININE 0.6 mg/dL (0.55-1.02); GLUCOSE,RANDOM 169 mg/dL (74-106); SGOT/AST 43 U/L (15-37); SGPT/ALT 164 U/L (12-78)
[2017-03-04 07:12] LABS: ALK PHOS 76 U/L (45-117); BILIRUBIN,TOTAL 0.5 mg/dL (0.2-1.0); TOT PROT 4.8 g/dl (6.4-8.2)
[2017-03-04 07:33] LABS: ARTERIAL BLD GAS O2 SATURATION 99.3 % (90-98.9); ARTERIAL BLOOD GAS BASE EXCESS 3.5 meq/l (-2-2); ARTERIAL BLOOD GAS HCO3 27.5 meq/L (22-26); ARTERIAL BLOOD GAS pH 7.44 (7.35-7.45)
[2017-03-04 07:34] LABS: ALLENS TEST POSITIVE; ART PUNCT SITE LEFT RADIAL; LPM/O2% VENT; MECH. VENT. YES; PT. ON O2? 40%; TYPE OF O2 VENT; VENT RATE 20; VT/PRESS 350
--- NOTE | 2017-03-04 08:12 | PN ---
Physical Exam: SUBJECTIVE: Patient seen and examined by me at bedside. Patient remains intubated and sedated. Failed weaning trial yesterday. Cultures negative to date and remains on Vancomycin and Zosyn. Remains Afebrile OBJECTIVE: Vital Signs Period Temp Pulse Resp BP Sys/Dan Pulse Ox Last 24 Hr 97 F-99.9 F 77-122 14-28 97-139/58-98 98-100 GENERAL: Intubated and sedated LUNGS: Bilateral wheezing and rhales throughout lung bases. HEART: Regular rate and rhythm, normal S1 and S2 without murmur, rub or gallop. ABDOMEN: Obese, Soft, nontender, not distended, normoactive bowel sounds. No hepatomegaly or splenomegaly. EXTREMITIES: No peripheral edema. Laboratory Results - last 24 hr 03/03/17 03/03/17 03/03/17 05:30 09:55 12:09 WBC RBC Hgb Hct MCV MCHC RDW Plt Count MPV Neutrophils % Lymphocytes % Monocytes % Eosinophils % Basophils % Puncture Site ABG pH ABG pCO2 at Pt Temp ABG pO2 at Pt Temp ABG HCO3 ABG O2 Sat (Measured) ABG O2 Content ABG Base Excess Francis Test O2 Delivery Device Oxygen Flow Rate Vent Mode Vent Rate Mechanical Rate PEEP Pressure Support Vent Sodium Potassium Chloride Carbon Dioxide Anion Gap BUN Creatinine Creat Clearance w eGFR POC Glucometer [phone] Random Glucose Calcium Total Bilirubin AST ALT Alkaline Phosphatase Creatine Kinase 43 Troponin I 0.06 H Total Protein Albumin Total Amylase 41 D 03/03/17 03/04/17 03/04/17 17:58 05:35 05:35 WBC 14.2 H RBC 2.88 L Hgb 7.4 L D Hct 23.4 L MCV 81.2 MCHC 31.9 L RDW 18.0 H Plt Count 164 MPV 9.9 Neutrophils % 95.7 H Lymphocytes % 1.9 L D Monocytes % 2.4 L D Eosinophils % 0.0 Basophils % 0.0 Puncture Site ABG pH ABG pCO2 at Pt Temp ABG pO2 at Pt Temp ABG HCO3 ABG O2 Sat (Measured) ABG O2 Content ABG Base Excess Francis Test O2 Delivery Device Oxygen Flow Rate Vent Mode Vent Rate Mechanical Rate PEEP Pressure Support Vent Sodium 143 Potassium 3.3 L Chloride 102 Carbon Dioxide 30 Anion Gap 11 BUN 21 H Creatinine 0.6 Creat Clearance w eGFR > 60 POC Glucometer [phone] Random Glucose 169 H Calcium 7.1 L Total Bilirubin 0.5 D AST 43 H ALT 164 H Alkaline Phosphatase 76 Creatine Kinase Troponin I Total Protein 4.8 L Albumin 1.9 L Total Amylase 28 D 03/04/17 07:20 WBC RBC Hgb Hct MCV MCHC RDW Plt Count MPV Neutrophils % Lymphocytes % Monocytes % Eosinophils % Basophils % Puncture Site Left radial ABG pH 7.44 ABG pCO2 at Pt Temp 41.5 ABG pO2 at Pt Temp 135.0 H D ABG HCO3 27.5 H ABG O2 Sat (Measured) 99.3 H ABG O2 Content 10.6 L ABG Base Excess 3.5 H Francis Test Positive O2 Delivery Device Vent Oxygen Flow Rate Vent Vent Mode A/c Vent Rate 20 Mechanical Rate Yes PEEP 5.0 Pressure Support Vent 350 Sodium Potassium Chloride Carbon Dioxide Anion Gap BUN Creatinine Creat Clearance w eGFR POC Glucometer Random Glucose Calcium Total Bilirubin AST ALT Alkaline Phosphatase Creatine Kinase Troponin I Total Protein Albumin Total Amylase Active Medications Generic Name Dose Route Start Last Admin Trade Name Freq PRN Reason Stop Dose Admin Acetaminophen 1,000 mg 02/26/17 20:20 Tylenol - PO Q6H PRN PAIN Acetylcysteine 200 mg 02/25/17 18:00 03/04/17 07:19 Mucomyst 20 Oral / Inh Use Only* NEB 200 mg QIDR EMMY Administration Albuterol Sulfate 1 amp 03/02/17 16:34 03/03/17 18:00 Ventolin 0.083% Nebulizer Soln - NEB 1 amp Q2H PRN Administration SHORT OF BREATH/WHEEZING Albuterol/Ipratropium 1 amp 03/03/17 06:00 03/04/17 07:20 Duoneb - NEB 1 amp QIDR EMMY Administration Baclofen 20 mg 02/23/17 14:00 03/04/17 05:43 Lioresal - PO 20 mg TID EMMY Administration Budesonide/Formoterol Fumarate 2 puff 02/23/17 10:00 03/03/17 21:25 Symbicort 160/4.5mcg - IH Not Given BID EMMY Cholecalciferol 2,000 unit 02/24/17 10:00 03/03/17 10:52 Vitamin D3 - PO 2,000 unit DAILY EMMY Administration Diltiazem HCl 60 mg 03/03/17 18:00 03/04/17 05:42 Cardizem - PO Not Given Q6HPO EMMY Diphenhydramine HCl 25 mg 02/23/17 17:32 Benadryl Oral Solution - PO Q4H PRN FOR ITCHING Docusate Sodium 100 mg 02/26/17 20:19 02/26/17 21:49 Colace - PO 100 mg BID PRN Administration CONSTIPATION Doxepin HCl 25 mg 02/23/17 22:00 03/03/17 21:22 Sinequan - PO 25 mg HS EMMY Administration Eletriptan 40 mg 02/24/17 10:38 03/02/17 10:54 Relpax - PO 40 mg Q6H PRN Administration HEADACHE Gabapentin 300 mg 02/23/17 14:00 03/04/17 05:43 Neurontin - PO 300 mg TID EMMY Administration Guaifenesin 600 mg 02/26/17 22:00 03/03/17 21:22 Mucinex - PO 600 mg BID EMMY Administration Guaifenesin 10 ml 02/26/17 17:39 02/28/17 05:52 Robitussin - PO 10 ml Q6H PRN Administration COUGH Heparin Sodium (Porcine) 5,000 unit 02/23/17 22:00 03/04/17 05:41 Heparin - SQ 5,000 unit TID EMMY Administration Hydromorphone HCl 1 mg 02/26/17 20:16 03/03/17 06:30 Dilaudid Injection - IVPB 1 mg Q4H PRN Administration PAIN Propofol 100 mls @ 1.81 mls/hr 03/02/17 19:45 03/03/17 19:45 Diprivan - IVPB 46.13 mcg/kg/min TITR EMMY Titration Protocol 5 MCG/KG/MIN Fentanyl 500 mcg/ Dextrose 100 mls @ 2 mls/hr 03/03/17 11:45 03/03/17 19:00 IJ 150 mcg/hr TITR EMMY Titration 10 MCG/HR Midazolam HCl 100 mg/ Sodium 100 mls @ 1 mls/hr 03/03/17 13:45 03/03/17 14:00 Chloride IVPB 5 mls/hr TITR EMMY Administration Protocol 1 MG/HR Insulin Aspart 1 vial 03/03/17 11:00 03/04/17 06:12 Novolog Vial Sliding Scale - SQ 2 units ACHS EMMY Administration Protocol Levothyroxine Sodium 25 mcg 02/23/17 10:00 03/04/17 06:11 Synthroid - PO 25 mcg DAILY@0700 EMMY Administration Lidocaine 1 patch 03/04/17 10:00 Lidoderm Patch - TP DAILY EMMY Loperamide HCl 2 mg 03/01/17 11:04 Imodium - PO Q8H PRN DIARRHEA Methylprednisolone Sodium Succinate 40 mg 03/02/17 21:00 03/04/17 02:06 Solu-Medrol - IVPB 40 mg Q6H-IV EMMY Administration Metoprolol Tartrate 25 mg 03/03/17 14:00 03/04/17 05:43 Lopressor - PO Not Given TID EMMY Mometasone Furoate 2 puff 03/02/17 16:45 03/03/17 10:16 Asmanex 220mcg - IH Not Given DAILY EMMY Multi-Ingredient Ointment 1 applic 02/24/17 10:30 03/03/17 21:25 Zinc Oxide TP 1 applic BID EMMY Administration Multivitamins/Minerals/Vitamin C 1 tab 02/23/17 10:00 03/03/17 10:17 Tab-A-Vit - PO 1 tab DAILY EMMY Administration Vortioxetine ( 1 each 02/25/17 08:00 03/03/17 09:00 Trintellix) 10 Mg PO Not Given Tablet (Pt's Own) DAILY@0800 EMMY Nystatin 500,000 units 02/27/17 18:00 03/04/17 05:41 Nystatin Oral Suspension - PO 500,000 units Q6HPO EMMY Administration Ondansetron HCl 4 mg 02/23/17 08:18 03/02/17 07:12 Zofran Injection IVPB 4 mg Q6H PRN Administration NAUSEA Pancrelipase 3 cap 02/24/17 12:00 03/03/17 18:[address] 6,000 Units Capsule PO 3 cap TIDCM EMMY Administration Pantoprazole Sodium 40 mg 02/24/17 11:30 03/03/17 10:15 Protonix - PO 40 mg DAILY EMMY Administration Piperacillin Sod/Tazobactam Sod 3.375 gm 03/03/17 12:30 03/04/17 01:11 Zosyn 3.375gm Ivpb (Pre-Docked) IVPB 3.375 gm Q8H-IV EMMY Administration Protocol Roflumilast 500 mcg 02/23/17 10:00 03/03/17 10:16 Daliresp - PO 500 mcg DAILY EMMY Administration Vancomycin HCl 1,000 mg 03/03/17 15:00 03/04/17 02:06 Vancomycin (Pre-Docked) IVPB 1,000 mg BID@0300,1500 EMMY Administration Protocol Zolpidem Tartrate 10 mg 02/26/17 20:21 03/01/17 21:38 Ambien - PO 10 mg HS PRN Administration INSOMNIA ASSESSMENT/PLAN: Patient is a 51 year old female with a PMHx of 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 Patient went into Respiratory failure s/p code and sent to the ICU Acute Respiratory Failure s/p code -Secondary to COPD exacerbation/CAP -Remains intubated -Continue with Zosyn 3.375mg Q8H -Continue Vancomycin 1gm BID Leukomoid response secondary to steroid use -Remains on Solu-medrol 40mg Q6H -Remains Afebrile -WBC continue to trend down Visit type - Emergency Visit Emergency Visit: Yes ED Registration Date: 02/24/17 Care time: The patient presented to the Emergency Department on the above date and was hospitalized for further evaluation of their emergent condition. - New Patient This patient is new to me today: No - Critical Care Critical Care patient: Yes Total Critical Care Time (in minutes): 35 Critical Care Statement: The care of this patient involved high complexity decision making to prevent further life threatening deterioration of the patient 's condition and/or to evalute & treat vital organ system(s) failure or risk of failure.
--- NOTE | 2017-03-04 09:03 | PN ---
Teaching Attending Note Name of Resident: Misti Rizvi ATTENDING PHYSICIAN STATEMENT I saw and evaluated the patient. I reviewed the resident's note and discussed the case with the resident. I agree with the resident's findings and plan as documented. SUBJECTIVE:Reviewed with resident Remains intubated OBJECTIVE:Acute respiratory failure/ Pneumonia / COPD ASSESSMENT AND PLAN: Continue antibiotics pending sputum c/s Martha WRIGHT
[2017-03-04] MEDS ORDERED: FUROSEMIDE 40 MG/4 ML INJECTABLE VIAL IVPUSH ONE ×2 (09:45→11:16)
[2017-03-04] MEDS: LIDOCAINE 5% TOPICAL PATCH TP SCH (09:52)
[2017-03-04] MEDS: guaiFENesin 600 MG TABLET.ER (FP) PO SCH ×2 (09:52→21:34)
[2017-03-04] MEDS: MULTIVITAMINS (DAILY MVI) TABLET (FP) PO SCH (09:52)
[2017-03-04] MEDS: CHOLECALCIFEROL (VITAMIN D3) 1,000 UNIT TABLET (FP) PO SCH (09:52)
[2017-03-04] MEDS: LIPASE/PROTEASE/AMYLASE 6,000 UNIT CAPSULE PO SCH ×3 (09:55→17:34)
[2017-03-04] MEDS: MOMETASONE FUROATE 220 MCG/IH INHALER IH SCH (10:01)
[2017-03-04] MEDS: PANTOPRAZOLE 40 MG TABLET (FP) PO SCH (10:01)
[2017-03-04] MEDS: ROFLUMILAST 500 MCG TABLET PO SCH (10:18)
[2017-03-04] MEDS: VORTIOXETINE 10 MG PO SCH (10:19)
[2017-03-04] MEDS: BUDESONIDE/FORMETEROL FUMARATE 160/4.5 mcg INHALER IH SCH ×2 (10:23→22:32)
[2017-03-04] MEDS: ZINC OXIDE 20% TOPICAL OINTMENT 30 GM TUBE TP SCH ×2 (10:23→22:07)
[2017-03-04] MEDS ORDERED: RACEPINEPHRINE IH SOL 2.25% 11.25 MG/0.5 ML VIAL NEB ONE (11:14)
[2017-03-04] MEDS ORDERED: ALBUTEROL SO4 2.5/IPRATROPIUM 0.5 INH SOL 3 ML VIAL.NEB. NEB ONE (11:25)
[2017-03-04] MEDS ORDERED: DEXAMETHASONE SOD PHOSPHATE 10 MG/1 ML VIAL IVPUSH ONE (11:30)
[2017-03-04] MEDS ORDERED: morphine CARPU-JECT 4 MG/1 ML DISP.SYRIN IVPUSH ONE (11:30)
--- NOTE | 2017-03-04 11:34 | PN ---
Teaching Attending Note Name of Resident: Nabor Weldon ATTENDING PHYSICIAN STATEMENT I saw and evaluated the patient. I reviewed the resident's note and discussed the case with the resident. I agree with the resident's findings and plan as documented. SUBJECTIVE: Pt seen and examined in the ICU. Remains intubated, sedated but arousable. Tolerating CPAP/PS trials. OBJECTIVE: Last Vital Signs Temp Pulse Resp BP Pulse Ox 98.0 F 100 H 12 147/90 100 03/04/17 10:00 03/04/17 10:00 03/04/17 10:00 03/04/17 10:00 03/03/17 21:00 Intake & Output 03/01/17 03/02/17 03/03/17 03/04/17 23:59 23:59 23:59 23:59 Intake Total 850 1200 1251 1960.4 Output Total 1600 250 Balance 850 1200 -349 1710.4 Weight 140 lb 9.6 oz Gen: intubated, sedated Heart: tachycardic, regular Lung: bilateral rhonchi, wheezes Abd: soft, nontender Ext: + edema CBC, BMP 03/04/17 05:35 03/04/17 05:35 Active Medications Acetaminophen (Tylenol -) 1,000 mg PO Q6H PRN PRN Reason: PAIN Acetylcysteine (Mucomyst 20 Oral / Inh Use Only*) 200 mg NEB QIDR [facility] Last Admin: 03/04/17 07:19 Dose: 200 mg Albuterol Sulfate (Ventolin 0.083% Nebulizer Soln -) 1 amp NEB Q2H PRN PRN Reason: SHORT OF BREATH/WHEEZING Last Admin: 03/03/17 18:00 Dose: 1 amp Albuterol/Ipratropium (Duoneb -) 1 amp NEB QIDR [facility] Last Admin: 03/04/17 07:20 Dose: 1 amp Baclofen (Lioresal -) 20 mg PO TID [facility] Last Admin: 03/04/17 05:43 Dose: 20 mg Budesonide/Formoterol Fumarate (Symbicort 160/4.5mcg -) 2 puff IH BID [facility] Last Admin: 03/04/17 10:23 Dose: Not Given Cholecalciferol (Vitamin D3 -) 2,000 unit PO DAILY [facility] Last Admin: 03/04/17 09:52 Dose: 2,000 unit Diltiazem HCl (Cardizem -) 60 mg PO Q6HPO [facility] Last Admin: 03/04/17 05:42 Dose: Not Given Diphenhydramine HCl (Benadryl Oral Solution -) 25 mg PO Q4H PRN PRN Reason: FOR ITCHING Docusate Sodium (Colace -) 100 mg PO BID PRN PRN Reason: CONSTIPATION Last Admin: 02/26/17 21:49 Dose: 100 mg Doxepin HCl (Sinequan -) 25 mg PO HS [facility] Last Admin: 03/03/17 21:22 Dose: 25 mg Eletriptan (Relpax -) 40 mg PO Q6H PRN PRN Reason: HEADACHE Last Admin: 03/02/17 10:54 Dose: 40 mg Gabapentin (Neurontin -) 300 mg PO TID [facility] Last Admin: 03/04/17 05:43 Dose: 300 mg Guaifenesin (Mucinex -) 600 mg PO BID [facility] Last Admin: 03/04/17 09:52 Dose: 600 mg Guaifenesin (Robitussin -) 10 ml PO Q6H PRN PRN Reason: COUGH Last Admin: 02/28/17 05:52 Dose: 10 ml Heparin Sodium (Porcine) (Heparin -) 5,000 unit SQ TID [facility] Last Admin: 03/04/17 05:41 Dose: 5,000 unit Hydromorphone HCl (Dilaudid Injection -) 1 mg IVPB Q4H PRN PRN Reason: PAIN Last Admin: 03/03/17 06:30 Dose: 1 mg Propofol (Diprivan -) 100 mls @ 1.81 mls/hr IVPB TITR EMMY; 5 MCG/KG/MIN PRN Reason: Protocol Last Titration: 03/03/17 19:45 Dose: 46.13 mcg/kg/min Fentanyl 500 mcg/ Dextrose 100 mls @ 2 mls/hr IJ TITR EMMY PRN Reason: 10 MCG/HR Last Titration: 03/03/17 19:00 Dose: 150 mcg/hr Midazolam HCl 100 mg/ Sodium (Chloride) 100 mls @ 1 mls/hr IVPB TITR EMMY; 1 MG/ HR PRN Reason: Protocol Last Admin: 03/03/17 14:00 Dose: 5 mls/hr Potassium Chloride (Potassium Chloride 10 Meq Premix Ivpb -) 100 mls @ 100 mls/ hr IVPB Q60M [facility] Stop: 03/04/17 14:49 Insulin Aspart (Novolog Vial Sliding Scale -) 1 vial SQ ACHS EMMY PRN Reason: Protocol Last Admin: 03/04/17 06:12 Dose: 2 units Levothyroxine Sodium (Synthroid -) 25 mcg PO DAILY@0700 [facility] Last Admin: 03/04/17 06:11 Dose: 25 mcg Lidocaine (Lidoderm Patch -) 1 patch TP DAILY [facility] Last Admin: 03/04/17 09:52 Dose: 1 patch Loperamide HCl (Imodium -) 2 mg PO Q8H PRN PRN Reason: DIARRHEA Last Admin: 03/04/17 09:59 Dose: 2 mg Methylprednisolone Sodium Succinate (Solu-Medrol -) 40 mg IVPB Q6H-IV [facility] Last Admin: 03/04/17 10:17 Dose: 40 mg Metoprolol Tartrate (Lopressor -) 25 mg PO TID [facility] Last Admin: 03/04/17 05:43 Dose: Not Given Mometasone Furoate (Asmanex 220mcg -) 2 puff IH DAILY [facility] Last Admin: 03/04/17 10:01 Dose: Not Given Multi-Ingredient Ointment (Zinc Oxide) 1 applic TP BID [facility] Last Admin: 03/04/17 10:23 Dose: 1 applic Multivitamins/Minerals/Vitamin C (Tab-A-Vit -) 1 tab PO DAILY [facility] Last Admin: 03/04/17 09:52 Dose: 1 tab Vortioxetine ( Trintellix) 10 Mg Tablet (Pt's Own) 1 each PO DAILY@0800 [facility] Last Admin: 03/04/17 10:19 Dose: 1 each Nystatin (Nystatin Oral Suspension -) 500,000 units PO Q6HPO [facility] Last Admin: 03/04/17 05:41 Dose: 500,000 units Ondansetron HCl (Zofran Injection) 4 mg IVPB Q6H PRN PRN Reason: NAUSEA Last Admin: 03/02/17 07:12 Dose: 4 mg Pancrelipase (Creon Dr 6,000 Units Capsule) 3 cap PO TIDCM [facility] Last Admin: 03/04/17 09:55 Dose: 3 cap Pantoprazole Sodium (Protonix -) 40 mg PO DAILY [facility] Last Admin: 03/04/17 10:01 Dose: Not Given Piperacillin Sod/Tazobactam Sod (Zosyn 3.375gm Ivpb (Pre-Docked)) 3.375 gm IVPB Q8H-IV EMMY PRN Reason: Protocol Last Admin: 03/04/17 09:59 Dose: 3.375 gm Roflumilast (Daliresp -) 500 mcg PO DAILY EMMY Last Admin: 03/04/17 10:18 Dose: 500 mcg Sodium Chloride ([place] -) 2 spray NS TID PRN PRN Reason: NASAL CONGESTION Vancomycin HCl (Vancomycin (Pre-Docked)) 1,000 mg IVPB BID@0300,1500 EMMY PRN Reason: Protocol Last Admin: 03/04/17 02:06 Dose: 1,000 mg Zolpidem Tartrate (Ambien -) 10 mg PO HS PRN PRN Reason: INSOMNIA Last Admin: 03/01/17 21:38 Dose: 10 mg ASSESSMENT AND PLAN: Acute on Chronic Hypoxic and Hypercapneic Respiratory Failure Acute COPD/Asthma Exacerbation r/o Pneumonia Atrial Fibrillation HTN Chronic Pain Syndrome/Opiate Dependent - wean to extubate with BiPAP standby - continue empiric antibiotics - continue medrol at current dose - inhaled bronchodilators standing and PRN - f/u cultures - replete lytes - titrate FiO2 to keep SpO2 >90% - rate control - DVT/GI prophylaxis - continue ICU monitoring critical care time spent reviewing chart, evaluating patient and formulating plan 40 min
[2017-03-04] MEDS: ALBUTEROL SO4 0.083% IH SOL 2.5 MG/3 ML VIAL.NEB. NEB PRN ×2 (12:06→18:25)
[2017-03-04] MEDS: KCL 10 MEQ IVPB 100 ML IVPB SCH ×3 (12:12→13:58)
[2017-03-04] MEDS ORDERED: SODIUM CHLORIDE NASAL SPRAY 44 ML BOTTLE NS PRN (14:00)
[2017-03-04] MEDS ORDERED: LIDOCAINE 5% TOPICAL PATCH TP SCH (14:15)
[2017-03-04] MEDS: ACETAMINOPHEN 1000 MG/100 ML VIAL (NON FORMULARY) IVPB SCH ×2 (14:23→21:34)
--- NOTE | 2017-03-04 18:49 | PN ---
Physical Exam: SUBJECTIVE: Patient seen and examined. She is restless and in pain requesting pain medication for her low back. Her chest is tender she doesn't want to be touched Extubated this AM Stable on Bipap OBJECTIVE: Vital Signs Period Temp Pulse Resp BP Sys/Dan Pulse Ox Last 24 Hr 97 F-98.1 F 77-126 12-100 98-170/58-93 98-100 PE Neuro: alert, awake, cn 2-12intact Pulm: diffuse bi lateral rhonchi +bipap HEENT: trach hole cdi CV: s1 s2 tachy rrr no mrg, Chest tenderness Abd: s nt nd + bs : patterson Ext: warm, no le edema Laboratory Results - last 24 hr 03/04/17 03/04/17 03/04/17 05:35 05:35 07:20 WBC 14.2 H RBC 2.88 L Hgb 7.4 L D Hct 23.4 L MCV 81.2 MCHC 31.9 L RDW 18.0 H Plt Count 164 MPV 9.9 Neutrophils % 95.7 H Lymphocytes % 1.9 L D Monocytes % 2.4 L D Eosinophils % 0.0 Basophils % 0.0 Puncture Site Left radial ABG pH 7.44 ABG pCO2 at Pt Temp 41.5 ABG pO2 at Pt Temp 135.0 H D ABG HCO3 27.5 H ABG O2 Sat (Measured) 99.3 H ABG O2 Content 10.6 L ABG Base Excess 3.5 H Francis Test Positive O2 Delivery Device Vent Oxygen Flow Rate Vent Vent Mode A/c Vent Rate 20 Mechanical Rate Yes PEEP 5.0 Pressure Support Vent 350 Sodium 143 Potassium 3.3 L Chloride 102 Carbon Dioxide 30 Anion Gap 11 BUN 21 H Creatinine 0.6 Creat Clearance w eGFR > 60 Random Glucose 169 H Calcium 7.1 L Total Bilirubin 0.5 D AST 43 H ALT 164 H Alkaline Phosphatase 76 Total Protein 4.8 L Albumin 1.9 L Total Amylase 28 D Active Medications Generic Name Dose Route Start Last Admin Trade Name Freq PRN Reason Stop Dose Admin Acetaminophen 1,000 mg 02/26/17 20:20 Tylenol - PO Q6H PRN PAIN Acetaminophen 1,000 mg 03/04/17 14:15 03/04/17 14:23 Ofirmev Injection - IVPB 03/05/17 08:16 1,000 mg Q6H EVELIO Administration Acetylcysteine 200 mg 02/25/17 18:00 03/04/17 18:25 Mucomyst 20 Oral / Inh Use Only* NEB 200 mg QIDR EVELIO Administration Albuterol Sulfate 1 amp 03/02/17 16:34 03/04/17 18:25 Ventolin 0.083% Nebulizer Soln - NEB 1 amp Q2H PRN Administration SHORT OF BREATH/WHEEZING Albuterol/Ipratropium 1 amp 03/03/17 06:00 03/04/17 18:27 Duoneb - NEB Not Given QIDR EVELIO Baclofen 20 mg 02/23/17 14:00 03/04/17 13:59 Lioresal - PO 20 mg TID EVELIO Administration Budesonide/Formoterol Fumarate 2 puff 02/23/17 10:00 03/04/17 10:23 Symbicort 160/4.5mcg - IH Not Given BID [facility] Cholecalciferol 2,000 unit 02/24/17 10:00 03/04/17 09:52 Vitamin D3 - PO 2,000 unit DAILY EVELIO Administration Diltiazem HCl 60 mg 03/03/17 18:00 03/04/17 17:31 Cardizem - PO 60 mg Q6HPO EVELIO Administration Diphenhydramine HCl 25 mg 02/23/17 17:32 Benadryl Oral Solution - PO Q4H PRN FOR ITCHING Docusate Sodium 100 mg 02/26/17 20:19 02/26/17 21:49 Colace - PO 100 mg BID PRN Administration CONSTIPATION Doxepin HCl 25 mg 02/23/17 22:00 03/03/17 21:22 Sinequan - PO 25 mg HS EVELIO Administration Eletriptan 40 mg 02/24/17 10:38 03/02/17 10:54 Relpax - PO 40 mg Q6H PRN Administration HEADACHE Gabapentin 300 mg 02/23/17 14:00 03/04/17 14:02 Neurontin - PO 300 mg TID EVELIO Administration Guaifenesin 600 mg 02/26/17 22:00 03/04/17 09:52 Mucinex - PO 600 mg BID EVELIO Administration Guaifenesin 10 ml 02/26/17 17:39 02/28/17 05:52 Robitussin - PO 10 ml Q6H PRN Administration COUGH Heparin Sodium (Porcine) 5,000 unit 02/23/17 22:00 03/04/17 14:02 Heparin - SQ 5,000 unit TID EVELIO Administration Hydromorphone HCl 1 mg 02/26/17 20:16 03/03/17 06:30 Dilaudid Injection - IVPB 1 mg Q4H PRN Administration PAIN Insulin Aspart 1 vial 03/03/17 11:00 03/04/17 17:01 Novolog Vial Sliding Scale - SQ 6 units ACHS EVELIO Administration Protocol Levothyroxine Sodium 25 mcg 02/23/17 10:00 03/04/17 06:11 Synthroid - PO 25 mcg DAILY@0700 EVELIO Administration Lidocaine 1 patch 03/04/17 10:00 03/04/17 09:52 Lidoderm Patch - TP 1 patch DAILY EVELIO Administration Loperamide HCl 2 mg 03/01/17 11:04 03/04/17 09:59 Imodium - PO 2 mg Q8H PRN Administration DIARRHEA Methylprednisolone Sodium Succinate 40 mg 03/02/17 21:00 03/04/17 14:24 Solu-Medrol - IVPB 40 mg Q6H-IV EVELIO Administration Metoprolol Tartrate 25 mg 03/03/17 14:00 03/04/17 14:02 Lopressor - PO 25 mg TID EVELIO Administration Mometasone Furoate 2 puff 03/02/17 16:45 03/04/17 10:01 Asmanex 220mcg - IH Not Given DAILY EVELIO Multi-Ingredient Ointment 1 applic 02/24/17 10:30 03/04/17 10:23 Zinc Oxide TP 1 applic BID EVELIO Administration Multivitamins/Minerals/Vitamin C 1 tab 02/23/17 10:00 03/04/17 09:52 Tab-A-Vit - PO 1 tab DAILY EVELIO Administration Vortioxetine ( 1 each 02/25/17 08:00 03/04/17 10:19 Trintellix) 10 Mg PO 1 each Tablet (Pt's Own) DAILY@0800 EVELIO Administration Nystatin 500,000 units 02/27/17 18:00 03/04/17 17:32 Nystatin Oral Suspension - PO Not Given Q6HPO EVELIO Ondansetron HCl 4 mg 02/23/17 08:18 03/02/17 07:12 Zofran Injection IVPB 4 mg Q6H PRN Administration NAUSEA Pancrelipase 3 cap 02/24/17 12:00 03/04/17 17:[address] 6,000 Units Capsule PO 3 cap TIDCM EVELIO Administration Pantoprazole Sodium 40 mg 02/24/17 11:30 03/04/17 10:01 Protonix - PO Not Given DAILY EVELIO Piperacillin Sod/Tazobactam Sod 3.375 gm 03/03/17 12:30 03/04/17 17:31 Zosyn 3.375gm Ivpb (Pre-Docked) IVPB 3.375 gm Q8H-IV EVELIO Administration Protocol Roflumilast 500 mcg 02/23/17 10:00 03/04/17 10:18 Daliresp - PO 500 mcg DAILY EVELIO Administration Sodium Chloride 2 spray 03/04/17 14:00 [place] Nasal [place] - NS TID PRN NASAL CONGESTION Vancomycin HCl 1,000 mg 03/03/17 15:00 03/04/17 15:29 Vancomycin (Pre-Docked) IVPB 1,000 mg BID@0300,1500 EVELIO Administration Protocol Zolpidem Tartrate 10 mg 02/26/17 20:21 03/01/17 21:38 Ambien - PO 10 mg HS PRN Administration INSOMNIA Microbiology 03/02/17 23:55 Blood Culture - Preliminary Blood - Peripheral Venous NO GROWTH OBTAINED AFTER 48 HOURS, INCUBATION TO CONTINUE FOR 3 DAYS. 03/02/17 23:55 Blood Culture - Preliminary Blood - Peripheral Venous NO GROWTH OBTAINED AFTER 48 HOURS, INCUBATION TO CONTINUE FOR 3 DAYS. 03/02/17 12:40 Blood Culture - Preliminary Blood - Peripheral Venous NO GROWTH OBTAINED AFTER 48 HOURS, INCUBATION TO CONTINUE FOR 3 DAYS. 03/03/17 00:05 Gram Stain - Final Sputum - Endotrachea Suction/Ventilator Sputum Culture - Preliminary Presumptive Ps Aeruginosa Yeast Like Organism 03/02/17 11:20 Blood Culture - Preliminary Blood - Peripheral Venous NO GROWTH OBTAINED AFTER 48 HOURS, INCUBATION TO CONTINUE FOR 3 DAYS. Assessment: 51 year old female pmhx of COPD on home O2, previous trach, Afib, HTN, anxiety, bipolar disorder and depression admitted to hospital with bronchitis and diarrhea, transferred to ICU s/p hypercarbic respiratory arrest, now extubated 03/04. Plan: 1. Acute on chroinc hypoxic and hypercapnic Respiratory Failure - Extubated today - Maintain Bipap - Start continuous end tidal volume monitoring - Mucomyst with albuterol - Duonebs evelio 2. Acute COPD/Asthma exacerbation - Solumedrol 40 q6 for bronchospasm; if improving taper tomorrow - Continue Roflumilast - Symbicort BID 3. HCAP coverage - CXR KELL infiltrate - WBC down trending; follow sputum cx - Emperic zosyn (day 2) - Vanco 4 days 4. AFIB - Appears in sinus tach - Continue cardizem 60mg q6 5. HTN - Lopressor 25mg TID 6. Transaminitis - Likely due to arrest - Down trending; will monitor 7. DM II - Will start levemir 5 BID - ISS, BGM ACHS 8. Hypothroidism - Synthroid 25mg daily 9. Anxiety, depression, chronic pain - Cont standing anti depressants - Cont neurontin and baclofen for chronic pain - Caution with narcotic use low threshold for co2 retention s/p extubation 10. Nutrition - NGT out - Hold po for risk of aspiration - Trial clears tomorrow AM Visit type - Emergency Visit Emergency Visit: Yes ED Registration Date: 02/24/17 Care time: The patient presented to the Emergency Department on the above date and was hospitalized for further evaluation of their emergent condition. - New Patient This patient is new to me today: No - Critical Care Critical Care patient: No
[2017-03-04] MEDS ORDERED: LORAZEPAM CARPU-JECT 2 MG/ML DISP.SYRIN IVPUSH ONE (21:29)
[2017-03-04] MEDS ORDERED: PT OWN MED DRAWER 7, Y5N ONE (21:33)
[2017-03-04] MEDS ORDERED: ALPRAZolam 0.25 MG TABLET PO PRN (21:36)
[2017-03-04] MEDS: DOXEPIN HCL 25 MG CAPSULE PO SCH (21:46)
[2017-03-04] MEDS: HYDROmorphone HCL CARPU-JECT 1 MG/1 ML DISP.SYRIN IVPB PRN (23:17)
[2017-03-05] MEDS: ACETYLCYSTEINE 20% 200MG/ML 4 ML VIAL *FOR ORAL / INH USE ONLY NEB SCH ×5 (00:05→23:10)
[2017-03-05] MEDS: ALBUTEROL SO4 2.5/IPRATROPIUM 0.5 INH SOL 3 ML VIAL.NEB. NEB SCH ×5 (00:05→23:15)
[2017-03-05] MEDS ORDERED: LORAZEPAM CARPU-JECT 2 MG/ML DISP.SYRIN IVPUSH ONE (01:25)
[2017-03-05] MEDS: NYSTATIN 500,000 UNITS/5 ML SUSPENSION PO SCH ×4 (01:25→17:31)
[2017-03-05] MEDS: dilTIAZem HCL 60 MG TABLET (FP) PO SCH ×5 (01:26→23:17)
[2017-03-05] MEDS: ACETAMINOPHEN 1000 MG/100 ML VIAL (NON FORMULARY) IVPB SCH ×2 (01:31→09:41)
[2017-03-05] MEDS: PIPERACILLIN/TAZOB 3.375 GM/50 ML PRE-DOCKED IVPB SCH ×3 (01:51→17:09)
[2017-03-05] MEDS: methylPREDNISolone NA SUCC 40 MG/1 ML VIAL IVPB SCH ×2 (03:50→09:51)
[2017-03-05] MEDS: VANCOMYCIN 1 GRAM (PRE-DOCKED) 1,000 MG/250 ML BAG IVPB SCH (03:50)
[2017-03-05] MEDS: HYDROmorphone HCL CARPU-JECT 1 MG/1 ML DISP.SYRIN IVPB PRN (03:55)
[2017-03-05] MEDS: BACLOFEN 10 MG TABLET (FP) PO SCH ×3 (06:27→23:25)
[2017-03-05] MEDS: LEVOTHYROXINE NA 25 MCG TABLET (FP) PO SCH (06:27)
[2017-03-05] MEDS: GABAPENTIN 300 MG CAPSULE (FP) PO SCH ×3 (06:27→23:17)
[2017-03-05] MEDS: INSULIN SLIDING SCALE (NOVOLOG) 1 VIAL SQ SCH ×4 (06:27→23:10)
[2017-03-05] MEDS: METOPROLOL TARTRATE 25 MG TABLET (FP) PO SCH ×3 (06:27→23:17)
[2017-03-05] MEDS: HEPARIN NA (PORCINE) 5,000 UNITS/ML 1ML VIAL SQ SCH ×3 (06:28→23:17)
--- NOTE | 2017-03-05 06:47 | PN ---
Progress Note, Physician Chief Complaint: ID Extubated now and sats good on BIBAP mask Zosyn given day 2 - Current Medication List Current Medications: Active Medications Acetaminophen (Tylenol -) 1,000 mg PO Q6H PRN PRN Reason: PAIN Acetaminophen (Ofirmev Injection -) 1,000 mg IVPB Q6H [facility] Stop: 03/05/17 08:16 Last Admin: 03/05/17 01:31 Dose: 1,000 mg Acetylcysteine (Mucomyst 20 Oral / Inh Use Only*) 200 mg NEB QIDR [facility] Last Admin: 03/05/17 06:36 Dose: 200 mg Albuterol Sulfate (Ventolin 0.083% Nebulizer Soln -) 1 amp NEB Q2H PRN PRN Reason: SHORT OF BREATH/WHEEZING Last Admin: 03/04/17 18:25 Dose: 1 amp Albuterol/Ipratropium (Duoneb -) 1 amp NEB QIDR [facility] Last Admin: 03/05/17 06:36 Dose: 1 amp Alprazolam (Xanax -) 0.25 mg PO Q8H PRN PRN Reason: ANXIETY Baclofen (Lioresal -) 20 mg PO TID [facility] Last Admin: 03/05/17 06:27 Dose: Not Given Budesonide/Formoterol Fumarate (Symbicort 160/4.5mcg -) 2 puff IH BID [facility] Last Admin: 03/04/17 22:32 Dose: Not Given Cholecalciferol (Vitamin D3 -) 2,000 unit PO DAILY [facility] Last Admin: 03/04/17 09:52 Dose: 2,000 unit Diltiazem HCl (Cardizem -) 60 mg PO Q6HPO [facility] Last Admin: 03/05/17 06:26 Dose: Not Given Diphenhydramine HCl (Benadryl Oral Solution -) 25 mg PO Q4H PRN PRN Reason: FOR ITCHING Docusate Sodium (Colace -) 100 mg PO BID PRN PRN Reason: CONSTIPATION Last Admin: 02/26/17 21:49 Dose: 100 mg Doxepin HCl (Sinequan -) 25 mg PO HS [facility] Last Admin: 03/04/17 21:46 Dose: Not Given Eletriptan (Relpax -) 40 mg PO Q6H PRN PRN Reason: HEADACHE Last Admin: 03/02/17 10:54 Dose: 40 mg Gabapentin (Neurontin -) 300 mg PO TID [facility] Last Admin: 03/05/17 06:27 Dose: Not Given Guaifenesin (Mucinex -) 600 mg PO BID [facility] Last Admin: 03/04/17 21:34 Dose: 600 mg Guaifenesin (Robitussin -) 10 ml PO Q6H PRN PRN Reason: COUGH Last Admin: 02/28/17 05:52 Dose: 10 ml Heparin Sodium (Porcine) (Heparin -) 5,000 unit SQ TID [facility] Last Admin: 03/05/17 06:28 Dose: 5,000 unit Hydromorphone HCl (Dilaudid Injection -) 1 mg IVPB Q4H PRN PRN Reason: PAIN Last Admin: 03/05/17 03:55 Dose: 1 mg Insulin Aspart (Novolog Vial Sliding Scale -) 1 vial SQ ACHS [facility] PRN Reason: Protocol Last Admin: 03/05/17 06:27 Dose: 2 units Levothyroxine Sodium (Synthroid -) 25 mcg PO DAILY@0700 [facility] Last Admin: 03/05/17 06:27 Dose: Not Given Lidocaine (Lidoderm Patch -) 1 patch TP DAILY [facility] Last Admin: 03/04/17 09:52 Dose: 1 patch Loperamide HCl (Imodium -) 2 mg PO Q8H PRN PRN Reason: DIARRHEA Last Admin: 03/04/17 09:59 Dose: 2 mg Methylprednisolone Sodium Succinate (Solu-Medrol -) 40 mg IVPB Q6H-IV [facility] Last Admin: 03/05/17 03:50 Dose: 40 mg Metoprolol Tartrate (Lopressor -) 25 mg PO TID [facility] Last Admin: 03/05/17 06:27 Dose: Not Given Mometasone Furoate (Asmanex 220mcg -) 2 puff IH DAILY [facility] Last Admin: 03/04/17 10:01 Dose: Not Given Multi-Ingredient Ointment (Zinc Oxide) 1 applic TP BID [facility] Last Admin: 03/04/17 22:07 Dose: 1 applic Multivitamins/Minerals/Vitamin C (Tab-A-Vit -) 1 tab PO DAILY [facility] Last Admin: 03/04/17 09:52 Dose: 1 tab Vortioxetine ( Trintellix) 10 Mg Tablet (Pt's Own) 1 each PO DAILY@0800 [facility] Last Admin: 03/04/17 10:19 Dose: 1 each Nystatin (Nystatin Oral Suspension -) 500,000 units PO Q6HPO [facility] Last Admin: 03/05/17 06:26 Dose: Not Given Ondansetron HCl (Zofran Injection) 4 mg IVPB Q6H PRN PRN Reason: NAUSEA Last Admin: 03/02/17 07:12 Dose: 4 mg Pancrelipase (Creon Dr 6,000 Units Capsule) 3 cap PO TIDCM [facility] Last Admin: 03/04/17 17:34 Dose: 3 cap Pantoprazole Sodium (Protonix -) 40 mg PO DAILY [facility] Last Admin: 03/04/17 10:01 Dose: Not Given Piperacillin Sod/Tazobactam Sod (Zosyn 3.375gm Ivpb (Pre-Docked)) 3.375 gm IVPB Q8H-IV [facility] PRN Reason: Protocol Last Admin: 03/05/17 01:51 Dose: 3.375 gm Roflumilast (Daliresp -) 500 mcg PO DAILY [facility] Last Admin: 03/04/17 10:18 Dose: 500 mcg Sodium Chloride ([place] Nasal [place] -) 2 spray NS TID PRN PRN Reason: NASAL CONGESTION Vancomycin HCl (Vancomycin (Pre-Docked)) 1,000 mg IVPB BID@0300,1500 [facility] PRN Reason: Protocol Last Admin: 03/05/17 03:50 Dose: 1,000 mg - Objective Vital Signs: Vital Signs Temperature 97.2 F L 03/05/17 06:00 Pulse Rate 96 H 03/05/17 06:00 Respiratory Rate 22 03/05/17 06:00 Blood Pressure 164/98 03/05/17 06:00 O2 Sat by Pulse Oximetry (%) 100 03/05/17 05:25 Constitutional: Yes: Mild Distress Cardiovascular: Yes: S1, S2 Respiratory: Yes: Rhonchi Gastrointestinal: Yes: Soft. No: Tenderness, Tenderness, Rebound Labs: CBC, BMP 03/04/17 05:35 03/04/17 05:35 INR, PTT INR 1.04 (0.82-1.09) 03/03/17 05:30 Assessment/Plan Microbiology 03/03/17 00:05 Sputum - Endotrachea Suction/Ventilator Gram Stain - Final 03/03/17 00:05 Sputum - Endotrachea Suction/Ventilator Sputum Culture - Preliminary Presumptive Ps Aeruginosa Yeast Like Organism 03/02/17 23:55 Blood - Peripheral Venous Blood Culture - Preliminary NO GROWTH OBTAINED AFTER 48 HOURS, INCUBATION TO CONTINUE FOR 3 DAYS. 03/02/17 23:55 Blood - Peripheral Venous Blood Culture - Preliminary NO GROWTH OBTAINED AFTER 48 HOURS, INCUBATION TO CONTINUE FOR 3 DAYS. 03/02/17 23:55 Blood - Peripheral Venous Blood Culture - Preliminary NO GROWTH OBTAINED AFTER 24 HOURS, INCUBATION TO CONTINUE FOR 4 DAYS. 03/02/17 23:55 Blood - Peripheral Venous Blood Culture - Preliminary NO GROWTH OBTAINED AFTER 24 HOURS, INCUBATION TO CONTINUE FOR 4 DAYS. Laboratory Tests 03/03/17 03/04/17 03/04/17 05:30 05:35 05:35 WBC 14.2 H RBC 2.88 L Hgb 7.4 L D Hct 23.4 L Plt Count 164 INR 1.04 ABG pH ABG pCO2 at Pt Temp ABG pO2 at Pt Temp BUN 21 H Creatinine 0.6 03/04/17 07:20 WBC RBC Hgb Hct Plt Count INR ABG pH 7.44 ABG pCO2 at Pt Temp 41.5 ABG pO2 at Pt Temp 135.0 H D BUN Creatinine Assessment COPD with acute respiratory failure now extubated Possible pneumonia with pseudomonas in sputum culture Plan Continue current antibiotic as ordered Zosyn continues Vanco stopped Sputum c/s senstiivities pending Martha WRIGHT
[2017-03-05 08:00] LABS: BASOPHIL 0.3 % (0-2.0); MCH 26.4 pg (25.7-33.7); MCHC 32.9 g/dl (32.0-36.0); MEAN CELL VOLUME 80.2 fl (80-96); MEAN PLT VOLUME 9.1 fl (7.5-11.1); NEUTROPHILS 95.6 % (42.8-82.8); PLATELET COUNT 152 K/MM3 (134-434); RDW 17.4 % (11.6-15.6); WHITE BLOOD COUNT 10.8 K/mm3 (4.0-10.0)
[2017-03-05] MEDS ORDERED: PT OWN MED DRAWER 7, Y5N ONE ×2 (08:10→23:13)
[2017-03-05 08:21] LABS: CALCIUM 7.6 mg/dL (8.5-10.1); COCKROFT - GAULT 162.35; CREATININE 0.4 mg/dL (0.55-1.02)
[2017-03-05] MEDS ORDERED: POTASSIUM CHLORIDE ORAL LIQUID 20 MEQ/15 ML PO ONE (08:30)
[2017-03-05] MEDS ORDERED: SUCCINYLCHOLINE CHLORIDE 200 MG/10 ML VIAL ONE (08:40)
[2017-03-05] MEDS ORDERED: PROPOFOL 100 ML ONE ×5 (08:40→20:33)
[2017-03-05] MEDS: PROPOFOL 100 ML IVPB SCH ×3 (09:00→23:57)
--- NOTE | 2017-03-05 09:10 | PROC ---
Intubation - Intubation Reason for Intubation: Respiratory Insufficiency Time of Intubation: 08:40 Intubation Method: orotracheal Blade used: Mac (3) Tube Size (cm): 7.0 Tube position @ lip (cm): 21 Tube position confirmed by: Direct visualization, CO2 detector, Chest x-ray, Breath sounds (CXR pending) Breath Sounds after Intubation: equal Post Intubation Xray: Yes (pending) Remarks: Anesthesiology STAT Arrived for STAT call to ICU. Pt. with severe respiratory insufficiency after trial off of BiPAP, pt. unresponsive with minimal respiratory efforts and receiving active BMV with AMBU. SpO2 to 100% with BMV, oropharynx suctioned of blood tinged secretions. Propofol 100mg IV push followed by Succinylcholine 120mg IV push. MAC 3 with grade I view. ETT passed with ease. VSS. CXR pending.
[2017-03-05] MEDS: FENTANYL INJECTION 500 MCG in DEXTROSE 5%-WATER - 90 ML IJ SCH (09:17)
[2017-03-05] MEDS: guaiFENesin 600 MG TABLET.ER (FP) PO SCH ×2 (09:47→23:17)
[2017-03-05] MEDS: LIPASE/PROTEASE/AMYLASE 6,000 UNIT CAPSULE PO SCH ×3 (09:47→16:39)
[2017-03-05] MEDS: VORTIOXETINE 10 MG PO SCH (09:48)
[2017-03-05] MEDS: MULTIVITAMINS (DAILY MVI) TABLET (FP) PO SCH (09:48)
[2017-03-05] MEDS: PANTOPRAZOLE 40 MG TABLET (FP) PO SCH (09:48)
[2017-03-05] MEDS: MOMETASONE FUROATE 220 MCG/IH INHALER IH SCH (09:49)
[2017-03-05] MEDS: BUDESONIDE/FORMETEROL FUMARATE 160/4.5 mcg INHALER IH SCH ×2 (09:49→23:18)
[2017-03-05] MEDS: CHOLECALCIFEROL (VITAMIN D3) 1,000 UNIT TABLET (FP) PO SCH (09:49)
[2017-03-05] MEDS: SODIUM CHLORIDE 1,000 ML IV SCH (09:50)
[2017-03-05] MEDS: MIDAZOLAM 100 MG in SODIUM CHLORIDE 100 ML IVPB SCH (09:52)
[2017-03-05] MEDS: LIDOCAINE 5% TOPICAL PATCH TP SCH (09:55)
[2017-03-05] MEDS: ZINC OXIDE 20% TOPICAL OINTMENT 30 GM TUBE TP SCH ×2 (09:55→23:24)
[2017-03-05] MEDS: ROFLUMILAST 500 MCG TABLET PO SCH (10:06)
[2017-03-05 10:54] LABS: ARTERIAL BLOOD GAS BASE EXCESS 3.8 meq/l (-2-2); ARTERIAL BLOOD GAS HCO3 27.7 meq/L (22-26); ARTERIAL BLOOD GAS pH 7.45 (7.35-7.45)
[2017-03-05 10:55] LABS: ALLENS TEST POSITIVE; ART PUNCT SITE RIGHT RADIAL; LPM/O2% 100; MECH. VENT. Y; PT. ON O2? YES; TYPE OF O2 MECH VENT; VT/PRESS 350
[2017-03-05 10:56] LABS: VENT RATE 12
[2017-03-05 10:57] LABS: ARTERIAL BLD GAS O2 SATURATION 99.9 % (90-98.9)
--- NOTE | 2017-03-05 11:35 | EKG ---
Test Reason : Blood Pressure : / mmHG Vent. Rate : 162 BPM Atrial Rate : 162 BPM P-R Int : 122 ms QRS Dur : 066 ms QT Int : 250 ms P-R-T Axes : 047 047 049 degrees QTc Int : 410 ms SINUS TACHYCARDIA NONSPECIFIC ST ABNORMALITY ABNORMAL ECG WHEN COMPARED WITH ECG OF 02-MAR-2017 20:10, ST NOW DEPRESSED IN ANTERIOR LEADS Confirmed by NICK CODY MD ([id number]) on 03/05/2017 11:35:18 AM Referred By: BEENA COPPOLA Confirmed By:NICK CODY MD
--- NOTE | 2017-03-05 12:34 | PN ---
Teaching Attending Note Name of Resident: Nabor Weldon ATTENDING PHYSICIAN STATEMENT I saw and evaluated the patient. I reviewed the resident's note and discussed the case with the resident. I agree with the resident's findings and plan as documented. SUBJECTIVE: Patient seen and examined in the ICU. Decompensated overnight requiring intubation. Sedated on AC Mode of vent. No pressors. OBJECTIVE: Intake & Output 03/02/17 03/03/17 03/04/17 03/05/17 23:59 23:59 23:59 23:59 Intake Total 1200 1251 2920.4 620 Output Total 1600 3050 700 Balance 1200 -349 -129.6 -80 Weight 140 lb 9.6 oz 133 lb 9.6 oz Last Vital Signs Temp Pulse Resp BP Pulse Ox 99.2 F 103 H 16 108/74 100 03/05/17 10:00 03/05/17 10:00 03/05/17 11:15 03/05/17 10:00 03/05/17 07:38 Active Medications Acetaminophen (Tylenol -) 1,000 mg PO Q6H PRN PRN Reason: PAIN Acetylcysteine (Mucomyst 20 Oral / Inh Use Only*) 200 mg NEB QIDR [facility] Last Admin: 03/05/17 11:15 Dose: 200 mg Albuterol Sulfate (Ventolin 0.083% Nebulizer Soln -) 1 amp NEB Q2H PRN PRN Reason: SHORT OF BREATH/WHEEZING Last Admin: 03/04/17 18:25 Dose: 1 amp Albuterol/Ipratropium (Duoneb -) 1 amp NEB QIDR [facility] Last Admin: 03/05/17 11:15 Dose: 1 amp Alprazolam (Xanax -) 0.25 mg PO Q8H PRN PRN Reason: ANXIETY Baclofen (Lioresal -) 20 mg PO TID [facility] Last Admin: 03/05/17 06:27 Dose: Not Given Budesonide/Formoterol Fumarate (Symbicort 160/4.5mcg -) 2 puff IH BID [facility] Last Admin: 03/05/17 09:49 Dose: Not Given Cholecalciferol (Vitamin D3 -) 2,000 unit PO DAILY [facility] Last Admin: 03/05/17 09:49 Dose: Not Given Diltiazem HCl (Cardizem -) 60 mg PO Q6HPO [facility] Last Admin: 03/05/17 06:26 Dose: Not Given Diphenhydramine HCl (Benadryl Oral Solution -) 25 mg PO Q4H PRN PRN Reason: FOR ITCHING Docusate Sodium (Colace -) 100 mg PO BID PRN PRN Reason: CONSTIPATION Last Admin: 02/26/17 21:49 Dose: 100 mg Doxepin HCl (Sinequan -) 25 mg PO HS [facility] Last Admin: 03/04/17 21:46 Dose: Not Given Eletriptan (Relpax -) 40 mg PO Q6H PRN PRN Reason: HEADACHE Last Admin: 03/02/17 10:54 Dose: 40 mg Gabapentin (Neurontin -) 300 mg PO TID [facility] Last Admin: 03/05/17 06:27 Dose: Not Given Guaifenesin (Mucinex -) 600 mg PO BID [facility] Last Admin: 03/05/17 09:47 Dose: Not Given Guaifenesin (Robitussin -) 10 ml PO Q6H PRN PRN Reason: COUGH Last Admin: 02/28/17 05:52 Dose: 10 ml Heparin Sodium (Porcine) (Heparin -) 5,000 unit SQ TID [facility] Last Admin: 03/05/17 06:28 Dose: 5,000 unit Hydromorphone HCl (Dilaudid Injection -) 1 mg IVPB Q4H PRN PRN Reason: PAIN Last Admin: 03/05/17 03:55 Dose: 1 mg Sodium Chloride (Normal Saline -) 1,000 mls @ 75 mls/hr IV ASDIR [facility] Last Admin: 03/05/17 09:50 Dose: 75 mls/hr Propofol (Diprivan -) 100 mls @ 1.818 mls/hr IVPB TITR [facility]; 5 MCG/KG/MIN PRN Reason: Protocol Last Admin: 03/05/17 09:00 Dose: 18.18 mls/hr Fentanyl 500 mcg/ Dextrose 100 mls @ 5 mls/hr IJ TITR [facility] PRN Reason: 25 MCG/HR Last Admin: 03/05/17 09:17 Dose: 5 mls/hr Midazolam HCl 100 mg/ Sodium (Chloride) 100 mls @ 1 mls/hr IVPB TITR [facility]; 1 MG/ HR PRN Reason: Protocol Last Admin: 03/05/17 09:52 Dose: 2 mls/hr Insulin Aspart (Novolog Vial Sliding Scale -) 1 vial SQ ACHS [facility] PRN Reason: Protocol Last Admin: 03/05/17 06:27 Dose: 2 units Insulin Detemir (Levemir Vial) 5 units SQ BIDI [facility] Levothyroxine Sodium (Synthroid -) 25 mcg PO DAILY@0700 [facility] Last Admin: 03/05/17 06:27 Dose: Not Given Lidocaine (Lidoderm Patch -) 1 patch TP DAILY [facility] Last Admin: 03/05/17 09:55 Dose: 1 patch Methylprednisolone Sodium Succinate (Solu-Medrol -) 40 mg IVPB BID [facility] Metoprolol Tartrate (Lopressor -) 25 mg PO TID [facility] Last Admin: 03/05/17 06:27 Dose: Not Given Mometasone Furoate (Asmanex 220mcg -) 2 puff IH DAILY [facility] Last Admin: 03/05/17 09:49 Dose: Not Given Multi-Ingredient Ointment (Zinc Oxide) 1 applic TP BID [facility] Last Admin: 03/05/17 09:55 Dose: 1 applic Multivitamins/Minerals/Vitamin C (Tab-A-Vit -) 1 tab PO DAILY [facility] Last Admin: 03/05/17 09:48 Dose: Not Given Vortioxetine ( Trintellix) 10 Mg Tablet (Pt's Own) 1 each PO DAILY@0800 [facility] Last Admin: 03/05/17 09:48 Dose: Not Given Nystatin (Nystatin Oral Suspension -) 500,000 units PO Q6HPO [facility] Last Admin: 03/05/17 06:26 Dose: Not Given Ondansetron HCl (Zofran Injection) 4 mg IVPB Q6H PRN PRN Reason: NAUSEA Last Admin: 03/02/17 07:12 Dose: 4 mg Pancrelipase (Creon Dr 6,000 Units Capsule) 3 cap PO TIDCM [facility] Last Admin: 03/05/17 09:47 Dose: Not Given Pantoprazole Sodium (Protonix -) 40 mg PO DAILY [facility] Last Admin: 03/05/17 09:48 Dose: Not Given Piperacillin Sod/Tazobactam Sod (Zosyn 3.375gm Ivpb (Pre-Docked)) 3.375 gm IVPB Q8H-IV [facility] PRN Reason: Protocol Last Admin: 03/05/17 09:54 Dose: 3.375 gm Roflumilast (Daliresp -) 500 mcg PO DAILY [facility] Last Admin: 03/05/17 10:06 Dose: Not Given Sodium Chloride ([place] Nasal [place] -) 2 spray NS TID PRN PRN Reason: NASAL CONGESTION Gen: intubated, sedated Heart: tachycardic, regular Lung: bilateral rhonchi, wheezes Abd: soft, nontender Ext: + edema Laboratory Results - last 24 hr 03/03/17 03/04/17 03/04/17 21:29 05:36 12:17 WBC RBC Hgb Hct MCV MCHC RDW Plt Count MPV Neutrophils % Lymphocytes % Monocytes % Eosinophils % Basophils % Puncture Site ABG pH ABG pCO2 at Pt Temp ABG pO2 at Pt Temp ABG HCO3 ABG O2 Sat (Measured) ABG O2 Content ABG Base Excess Francis Test O2 Delivery Device Oxygen Flow Rate Vent Mode Vent Rate Mechanical Rate PEEP Pressure Support Vent Sodium Potassium Chloride Carbon Dioxide Anion Gap BUN Creatinine POC Glucometer 150.64117 195.82236 175.49076 Random Glucose Lactic Acid Calcium Troponin I 03/04/17 03/04/17 03/05/17 16:22 21:53 06:15 WBC 10.8 H RBC 3.25 L Hgb 8.6 L D Hct 26.1 L MCV 80.2 MCHC 32.9 RDW 17.4 H Plt Count 152 MPV 9.1 Neutrophils % 95.6 H Lymphocytes % 2.2 L Monocytes % 1.9 L Eosinophils % 0.0 Basophils % 0.3 D Puncture Site ABG pH ABG pCO2 at Pt Temp ABG pO2 at Pt Temp ABG HCO3 ABG O2 Sat (Measured) ABG O2 Content ABG Base Excess Francis Test O2 Delivery Device Oxygen Flow Rate Vent Mode Vent Rate Mechanical Rate PEEP Pressure Support Vent Sodium Potassium Chloride Carbon Dioxide Anion Gap BUN Creatinine POC Glucometer 260.98765 137.30984 Random Glucose Lactic Acid Calcium Troponin I 03/05/17 03/05/17 03/05/17 06:15 06:25 10:20 WBC RBC Hgb Hct MCV MCHC RDW Plt Count MPV Neutrophils % Lymphocytes % Monocytes % Eosinophils % Basophils % Puncture Site ABG pH ABG pCO2 at Pt Temp ABG pO2 at Pt Temp ABG HCO3 ABG O2 Sat (Measured) ABG O2 Content ABG Base Excess Francis Test O2 Delivery Device Oxygen Flow Rate Vent Mode Vent Rate Mechanical Rate PEEP Pressure Support Vent Sodium 138 Potassium 3.3 L Chloride 97 L Carbon Dioxide 32 Anion Gap 9 BUN 17 Creatinine 0.4 L D POC Glucometer 183.22121 Random Glucose 137 H Lactic Acid Calcium 7.6 L Troponin I < 0.02 03/05/17 03/05/17 10:20 10:45 WBC RBC Hgb Hct MCV MCHC RDW Plt Count MPV Neutrophils % Lymphocytes % Monocytes % Eosinophils % Basophils % Puncture Site Right radial ABG pH 7.45 ABG pCO2 at Pt Temp 40.8 ABG pO2 at Pt Temp 474.0 H* ABG HCO3 27.7 H ABG O2 Sat (Measured) 99.9 H* ABG O2 Content 15.7 ABG Base Excess 3.8 H Francis Test Positive O2 Delivery Device Mech vent Oxygen Flow Rate 100 Vent Mode Ac Vent Rate 12 Mechanical Rate Y PEEP 5.0 Pressure Support Vent 350 Sodium Potassium Chloride Carbon Dioxide Anion Gap BUN Creatinine POC Glucometer Random Glucose Lactic Acid 1.118 Calcium Troponin I ASSESSMENT AND PLAN: Acute on Chronic Hypoxic and Hypercapneic Respiratory Failure Acute COPD/Asthma Exacerbation r/o Pneumonia Atrial Fibrillation HTN Chronic Pain Syndrome/Opiate Dependent - Sedate - continue empiric antibiotics - Taper medrol - inhaled bronchodilators standing and PRN - replete lytes - titrate FiO2 to keep SpO2 >90% - rate control - DVT/GI prophylaxis - continue ICU monitoring Dr Castaneda CCT : 35 " time spent reviewing chart, evaluating patient and formulating plan Problem List - Problems (1) Acute exacerbation of COPD with asthma Code(s): J44.1 - CHRONIC OBSTRUCTIVE PULMONARY DISEASE W (ACUTE) EXACERBATION J45.901 - UNSPECIFIED ASTHMA WITH (ACUTE) EXACERBATION (2) Bronchitis Code(s): J40 - BRONCHITIS, NOT SPECIFIED ACUTE OR CHRONIC (3) Diarrhea in adult patient Code(s): R19.7 - DIARRHEA, UNSPECIFIED (4) Anxiety Code(s): F41.9 - ANXIETY DISORDER, UNSPECIFIED (5) Bipolar 2 disorder Code(s): F31.81 - BIPOLAR II DISORDER (6) COPD (chronic obstructive pulmonary disease) case management patient Code(s): NZX5388 - (7) Chronic back pain Code(s): M54.9 - DORSALGIA, UNSPECIFIED G89.29 - OTHER CHRONIC PAIN (8) Depression with anxiety Code(s): F41.8 - OTHER SPECIFIED ANXIETY DISORDERS (9) Gastritis Code(s): K29.70 - GASTRITIS, UNSPECIFIED, WITHOUT BLEEDING (10) HTN (hypertension) Code(s): I10 - ESSENTIAL (PRIMARY) HYPERTENSION Qualifiers: (11) Hyperlipidemia Code(s): E78.5 - HYPERLIPIDEMIA, UNSPECIFIED (12) Opioid dependence Code(s): F11.20 - OPIOID DEPENDENCE, UNCOMPLICATED (13) Paroxysmal atrial fibrillation Code(s): I48.0 - PAROXYSMAL ATRIAL FIBRILLATION (14) Afib Code(s): I48.91 - UNSPECIFIED ATRIAL FIBRILLATION (15) Anemia Code(s): D64.9 - ANEMIA, UNSPECIFIED (16) GERD (gastroesophageal reflux disease) Code(s): K21.9 - GASTRO-ESOPHAGEAL REFLUX DISEASE WITHOUT ESOPHAGITIS (17) Hemoptysis Code(s): R04.2 - HEMOPTYSIS (18) Leukocytosis Code(s): D72.829 - ELEVATED WHITE BLOOD CELL COUNT, UNSPECIFIED Qualifiers: Leukocytosis type: unspecified Qualified Code(s): D72.829 - Elevated white blood cell count, unspecified (19) Mood disorder Code(s): F39 - UNSPECIFIED MOOD [AFFECTIVE] DISORDER (20) Neuropathy Code(s): G62.9 - POLYNEUROPATHY, UNSPECIFIED
[2017-03-05] MEDS ORDERED: SODIUM CHLORIDE 500 ML IV STA (14:13)
--- NOTE | 2017-03-05 14:13 | PN ---
Physical Exam: SUBJECTIVE: Patient seen and examined Patient desaturated on ventuary mask, Patient sat went down till 30, patient was taken on ambu bag spo2 increased to 99, anasthesia was called and patient intubated. Family ( mother )called and informed Patient was started on sedation propofol, midazolam and fantanyl OBJECTIVE: Vital Signs Period Temp Pulse Resp BP Sys/Dan Pulse Ox Last 24 Hr 97 F-99.2 F 81-151 12-28 108-185/74-98 99-100 GENERAL: intubated awake, sedated HEAD: Normal with no signs of trauma. EYES: PERRL, ENT: Ears normal, nares patent, moist mucous membranes. NECK: Trachea midline, full range of motion, supple. LUNGS: Breath sounds equal, b/l rales and wheez. HEART: Regular rate, sis2 normal . ABDOMEN: Soft, nontender, nondistended, normoactive bowel sounds, no guarding, no rebound, EXTREMITIES: 2+ pulses, warm, no edema. SKIN: Warm, dry, Laboratory Results - last 24 hr 03/03/17 03/04/17 03/04/17 21:29 05:36 12:17 WBC RBC Hgb Hct MCV MCHC RDW Plt Count MPV Neutrophils % Lymphocytes % Monocytes % Eosinophils % Basophils % Puncture Site ABG pH ABG pCO2 at Pt Temp ABG pO2 at Pt Temp ABG HCO3 ABG O2 Sat (Measured) ABG O2 Content ABG Base Excess Francis Test O2 Delivery Device Oxygen Flow Rate Vent Mode Vent Rate Mechanical Rate PEEP Pressure Support Vent Sodium Potassium Chloride Carbon Dioxide Anion Gap BUN Creatinine POC Glucometer 150.70972 195.87621 [phone] Random Glucose Lactic Acid Calcium Troponin I 03/04/17 03/04/17 03/05/17 16:22 21:53 06:15 WBC 10.8 H RBC 3.25 L Hgb 8.6 L D Hct 26.1 L MCV 80.2 MCHC 32.9 RDW 17.4 H Plt Count 152 MPV 9.1 Neutrophils % 95.6 H Lymphocytes % 2.2 L Monocytes % 1.9 L Eosinophils % 0.0 Basophils % 0.3 D Puncture Site ABG pH ABG pCO2 at Pt Temp ABG pO2 at Pt Temp ABG HCO3 ABG O2 Sat (Measured) ABG O2 Content ABG Base Excess Francis Test O2 Delivery Device Oxygen Flow Rate Vent Mode Vent Rate Mechanical Rate PEEP Pressure Support Vent Sodium Potassium Chloride Carbon Dioxide Anion Gap BUN Creatinine POC Glucometer 260.59078 137.25121 Random Glucose Lactic Acid Calcium Troponin I 03/05/17 03/05/17 03/05/17 06:15 06:25 10:20 WBC RBC Hgb Hct MCV MCHC RDW Plt Count MPV Neutrophils % Lymphocytes % Monocytes % Eosinophils % Basophils % Puncture Site ABG pH ABG pCO2 at Pt Temp ABG pO2 at Pt Temp ABG HCO3 ABG O2 Sat (Measured) ABG O2 Content ABG Base Excess Francis Test O2 Delivery Device Oxygen Flow Rate Vent Mode Vent Rate Mechanical Rate PEEP Pressure Support Vent Sodium 138 Potassium 3.3 L Chloride 97 L Carbon Dioxide 32 Anion Gap 9 BUN 17 Creatinine 0.4 L D POC Glucometer 183.64311 Random Glucose 137 H Lactic Acid Calcium 7.6 L Troponin I < 0.02 03/05/17 03/05/17 03/05/17 10:20 10:45 12:57 WBC RBC Hgb Hct MCV MCHC RDW Plt Count MPV Neutrophils % Lymphocytes % Monocytes % Eosinophils % Basophils % Puncture Site Right radial ABG pH 7.45 ABG pCO2 at Pt Temp 40.8 ABG pO2 at Pt Temp 474.0 H* ABG HCO3 27.7 H ABG O2 Sat (Measured) 99.9 H* ABG O2 Content 15.7 ABG Base Excess 3.8 H Francis Test Positive O2 Delivery Device Mech vent Oxygen Flow Rate 100 Vent Mode Ac Vent Rate 12 Mechanical Rate Y PEEP 5.0 Pressure Support Vent 350 Sodium Potassium Chloride Carbon Dioxide Anion Gap BUN Creatinine POC Glucometer 172.75247 Random Glucose Lactic Acid 1.118 Calcium Troponin I Active Medications Generic Name Dose Route Start Last Admin Trade Name Freq PRN Reason Stop Dose Admin Acetaminophen 1,000 mg 02/26/17 20:20 Tylenol - PO Q6H PRN PAIN Acetylcysteine 200 mg 02/25/17 18:00 03/05/17 11:15 Mucomyst 20 Oral / Inh Use Only* NEB 200 mg QIDR EMMY Administration Albuterol Sulfate 1 amp 03/02/17 16:34 03/04/17 18:25 Ventolin 0.083% Nebulizer Soln - NEB 1 amp Q2H PRN Administration SHORT OF BREATH/WHEEZING Albuterol/Ipratropium 1 amp 03/03/17 06:00 04/13/17 11:15 Duoneb - NEB 1 amp QIDR [facility] Administration Alprazolam 0.25 mg 03/04/17 21:36 Xanax - PO Q8H PRN ANXIETY Baclofen 20 mg 02/23/17 14:00 03/05/17 13:48 Lioresal - PO Not Given TID [facility] Budesonide/Formoterol Fumarate 2 puff 02/23/17 10:00 03/05/17 09:49 Symbicort 160/4.5mcg - IH Not Given BID [facility] Cholecalciferol 2,000 unit 02/24/17 10:00 03/05/17 09:49 Vitamin D3 - PO Not Given DAILY [facility] Diltiazem HCl 60 mg 03/03/17 18:00 03/05/17 13:46 Cardizem - PO Not Given Q6HPO [facility] Diphenhydramine HCl 25 mg 02/23/17 17:32 Benadryl Oral Solution - PO Q4H PRN FOR ITCHING Docusate Sodium 100 mg 02/26/17 20:19 02/26/17 21:49 Colace - PO 100 mg BID PRN Administration CONSTIPATION Doxepin HCl 25 mg 02/23/17 22:00 03/04/17 21:46 Sinequan - PO Not Given [facility] Eletriptan 40 mg 02/24/17 10:38 03/02/17 10:54 Relpax - PO 40 mg Q6H PRN Administration HEADACHE Gabapentin 300 mg 02/23/17 14:00 03/05/17 13:49 Neurontin - PO Not Given TID [facility] Guaifenesin 600 mg 02/26/17 22:00 03/05/17 09:47 Mucinex - PO Not Given BID [facility] Guaifenesin 10 ml 02/26/17 17:39 02/28/17 05:52 Robitussin - PO 10 ml Q6H PRN Administration COUGH Heparin Sodium (Porcine) 5,000 unit 02/23/17 22:00 03/05/17 06:28 Heparin - SQ 5,000 unit TID [facility] Administration Hydromorphone HCl 1 mg 02/26/17 20:16 03/05/17 03:55 Dilaudid Injection - IVPB 1 mg Q4H PRN Administration PAIN Sodium Chloride 1,000 mls @ 75 mls/hr 03/05/17 08:30 03/05/17 09:50 Normal Saline - IV 75 mls/hr ASDIR [facility]MM[facility] Administration Propofol 100 mls @ 1.818 mls/hr 03/05/17 09:00 03/05/17 09:00 Diprivan - IVPB 18.18 mls/hr TITR [facility] Administration Protocol 5 MCG/KG/MIN Fentanyl 500 mcg/ Dextrose 100 mls @ 5 mls/hr 03/05/17 09:00 03/05/17 09:17 IJ 5 mls/hr TITR EMMY Administration 25 MCG/HR Midazolam HCl 100 mg/ Sodium 100 mls @ 1 mls/hr 03/05/17 09:00 03/05/17 09:52 Chloride IVPB 2 mls/hr TITR [facility] Administration Protocol 1 MG/HR Insulin Aspart 1 vial 03/03/17 11:00 03/05/17 06:27 Novolog Vial Sliding Scale - SQ 2 units ACHS E[facility] Administration Protocol Insulin Detemir 5 units 03/05/17 16:30 Levemir Vial SQ BIDI [facility] Levothyroxine Sodium 25 mcg 02/23/17 10:00 03/05/17 06:27 Synthroid - PO Not Given DAILY@0700 [facility] Lidocaine 1 patch 03/04/17 10:00 03/05/17 09:55 Lidoderm Patch - TP 1 patch DAILY [facility] Administration Methylprednisolone Sodium Succinate 40 mg 03/05/17 22:00 Solu-Medrol - IVPB BID [facility] Metoprolol Tartrate 25 mg 03/03/17 14:00 03/05/17 13:48 Lopressor - PO Not Given TID [facility] Mometasone Furoate 2 puff 03/02/17 16:45 03/05/17 09:49 Asmanex 220mcg - IH Not Given DAILY [facility] Multi-Ingredient Ointment 1 applic 02/24/17 10:30 03/05/17 09:55 Zinc Oxide TP 1 applic BID [facility] Administration Multivitamins/Minerals/Vitamin C 1 tab 02/23/17 10:00 03/05/17 09:48 Tab-A-Vit - PO Not Given DAILY [facility] Vortioxetine ( 1 each 02/25/17 08:00 03/05/17 09:48 Trintellix) 10 Mg PO Not Given Tablet (Pt's Own) DAILY@0800 [facility] Nystatin 500,000 units 02/27/17 18:00 03/05/17 13:50 Nystatin Oral Suspension - PO Not Given Q6HPO [facility] Ondansetron HCl 4 mg 02/23/17 08:18 03/02/17 07:12 Zofran Injection IVPB 4 mg Q6H PRN Administration NAUSEA Pancrelipase 3 cap 02/24/17 12:00 03/05/17 13:[address] 6,000 Units Capsule PO Not Given TIDCM [facility] Pantoprazole Sodium 40 mg 02/24/17 11:30 03/05/17 09:48 Protonix - PO Not Given DAILY [facility] Piperacillin Sod/Tazobactam Sod 3.375 gm 03/03/17 12:30 03/05/17 09:54 Zosyn 3.375gm Ivpb (Pre-Docked) IVPB 3.375 gm Q8H-IV [facility] Administration Protocol Roflumilast 500 mcg 02/23/17 10:00 03/05/17 10:06 Daliresp - PO Not Given DAILY [facility] Sodium Chloride 2 spray 03/04/17 14:00 [place] Nasal [place] - NS TID PRN NASAL CONGESTION ASSESSMENT/PLAN: Hypercapnic Respiratory Failure secondary to copd excerbation -on ventilator support - repeat abg in morning -Sedation with Propofol drip fentanyl and midazolam -Cont Albuterol nebs and Atrovent nebs -Cont Solumedrol 40mg bid -Antibiotics as per id : willam -Aspiration precautions - monitor vitals - keep spo2 >90 - ng tube insertion - follow culture :Leukocytosis: HCAP vs steroid response -follow culture - wbc decreased to 10 - antibiotics as per id zosyn Afib, HTN; hypertensive post arrest; troponin wnl start with metoprolol tartrate and cardiazem - Elevated AST/ALT/Alk phos - could be due to shock - improving - follow lft Neuro/Psyche: Anxiety, depression, chronic pain -Cont standing anti depressant -Cont neurontin and baclofen for chronic pain fluid : NS 75 ml/hr electrolyte : repeat in am nutrition; tube feed as per dietary recommendations Proph: Hep SQ/PPI gi pro : on protonix dispo : admit in icu Visit type - Emergency Visit Emergency Visit: Yes ED Registration Date: 02/24/17 Care time: The patient presented to the Emergency Department on the above date and was hospitalized for further evaluation of their emergent condition. - New Patient This patient is new to me today: No - Critical Care Critical Care patient: Yes Total Critical Care Time (in minutes): 45 Critical Care Statement: The care of this patient involved high complexity decision making to prevent further life threatening deterioration of the patient 's condition and/or to evalute & treat vital organ system(s) failure or risk of failure.
--- NOTE | 2017-03-05 15:42 | PN ---
Physical Exam: SUBJECTIVE: Patient seen and examined. Intubated, sedated. +BM this aM Events: - De satturated on venti mask to 40's - re intubated by anesthesia - Lactic acid wnl, trop negative OBJECTIVE: Vital Signs Period Temp Pulse Resp BP Sys/Dan Pulse Ox Last 24 Hr 97 F-99.2 F 81-151 12-28 108-185/74-98 99-100 PE Neuro: intubated, sedation Pulm: diffuse bilateral rhonchi, no wheezing, + MV CV: s1 s2 rrr no mrg Abd: s nt mild distention + bs : patterson clear yellow urine Ext: warm no le edema CBCD WBC 10.8 K/mm3 (4.0-10.0) H 03/05/17 06:15 RBC 3.25 M/mm3 (3.60-5.2) L 03/05/17 06:15 Hgb 8.6 GM/dL (10.7-15.3) L D 03/05/17 06:15 Hct 26.1 % (32.4-45.2) L 03/05/17 06:15 MCV 80.2 fl (80-96) 03/05/17 06:15 MCHC 32.9 g/dl (32.0-36.0) 03/05/17 06:15 RDW 17.4 % (11.6-15.6) H 03/05/17 06:15 Plt Count 152 K/MM3 (134-434) 03/05/17 06:15 MPV 9.1 fl (7.5-11.1) 03/05/17 06:15 CMP Sodium 138 mmol/L (136-145) 03/05/17 06:15 Potassium 3.3 mmol/L (3.5-5.1) L 03/05/17 06:15 Chloride 97 mmol/L (98-107) L 03/05/17 06:15 Carbon Dioxide 32 mmol/L (21-32) 03/05/17 06:15 Anion Gap 9 (8-16) 03/05/17 06:15 BUN 17 mg/dL (7-18) 03/05/17 06:15 Creatinine 0.4 mg/dL (0.55-1.02) L D 03/05/17 06:15 Creat Clearance w eGFR > 60 (>60) 03/04/17 05:35 Calcium 7.6 mg/dL (8.5-10.1) L 03/05/17 06:15 Total Bilirubin 0.5 mg/dL (0.2-1.0) D 03/04/17 05:35 AST 43 U/L (15-37) H 03/04/17 05:35 ALT 164 U/L (12-78) H 03/04/17 05:35 Alkaline Phosphatase 76 U/L (45-117) 03/04/17 05:35 Total Protein 4.8 g/dl (6.4-8.2) L 03/04/17 05:35 Albumin 1.9 g/dl (3.4-5.0) L 03/04/17 05:35 03/05/17 10:45 Puncture Site Right radial ABG pH 7.45 ABG pCO2 at Pt Temp 40.8 ABG pO2 at Pt Temp 474.0 H* ABG HCO3 27.7 H ABG O2 Sat (Measured) 99.9 H* ABG O2 Content 15.7 ABG Base Excess 3.8 H Francis Test Positive O2 Delivery Device Mech vent Oxygen Flow Rate 100 Vent Mode Ac Vent Rate 12 PEEP 5.0 Pressure Support Vent 350 Active Medications Generic Name Dose Route Start Last Admin Trade Name Freq PRN Reason Stop Dose Admin Acetaminophen 1,000 mg 02/26/17 20:20 Tylenol - PO Q6H PRN PAIN Acetylcysteine 200 mg 02/25/17 18:00 03/05/17 11:15 Mucomyst 20 Oral / Inh Use Only* NEB 200 mg QIDR [facility]MM[facility] Administration Albuterol Sulfate 1 amp 03/02/17 16:34 03/04/17 18:25 Ventolin 0.083% Nebulizer Soln - NEB 1 amp Q2H PRN Administration SHORT OF BREATH/WHEEZING Albuterol/Ipratropium 1 amp 03/03/17 06:00 03/05/17 11:15 Duoneb - NEB 1 amp QIDR [facility] Administration Alprazolam 0.25 mg 03/04/17 21:36 Xanax - PO Q8H PRN ANXIETY Baclofen 20 mg 02/23/17 14:00 03/05/17 13:48 Lioresal - PO Not Given TID [facility] Budesonide/Formoterol Fumarate 2 puff 02/23/17 10:00 03/05/17 09:49 Symbicort 160/4.5mcg - IH Not Given BID [facility] Cholecalciferol 2,000 unit 02/24/17 10:00 03/05/17 09:49 Vitamin D3 - PO Not Given DAILY [facility] Diltiazem HCl 60 mg 03/03/17 18:00 03/05/17 13:46 Cardizem - PO Not Given Q6HPO [facility] Diphenhydramine HCl 25 mg 02/23/17 17:32 Benadryl Oral Solution - PO Q4H PRN FOR ITCHING Docusate Sodium 100 mg 02/26/17 20:19 02/26/17 21:49 Colace - PO 100 mg BID PRN Administration CONSTIPATION Doxepin HCl 25 mg 02/23/17 22:00 03/04/17 21:46 Sinequan - PO Not Given HS [facility] Eletriptan 40 mg 02/24/17 10:38 03/02/17 10:54 Relpax - PO 40 mg Q6H PRN Administration HEADACHE Gabapentin 300 mg 02/23/17 14:00 03/05/17 13:49 Neurontin - PO Not Given TID [facility] Guaifenesin 600 mg 02/26/17 22:00 03/05/17 09:47 Mucinex - PO Not Given BID [facility] Guaifenesin 10 ml 02/26/17 17:39 02/28/17 05:52 Robitussin - PO 10 ml Q6H PRN Administration COUGH Heparin Sodium (Porcine) 5,000 unit 02/23/17 22:00 03/05/17 06:28 Heparin - SQ 5,000 unit TID [facility] Administration Hydromorphone HCl 1 mg 02/26/17 20:16 03/05/17 03:55 Dilaudid Injection - IVPB 1 mg Q4H PRN Administration PAIN Sodium Chloride 1,000 mls @ 75 mls/hr 03/05/17 08:30 03/05/17 09:50 Normal Saline - IV 75 mls/hr ASDIR EMM[facility] Administration Propofol 100 mls @ 1.818 mls/hr 03/05/17 09:00 03/05/17 09:00 Diprivan - IVPB 18.18 mls/hr TITR [facility] Administration Protocol 5 MCG/KG/MIN Fentanyl 500 mcg/ Dextrose 100 mls @ 5 mls/hr 03/05/17 09:00 03/05/17 09:17 IJ 5 mls/hr TITR EMM[facility] Administration 25 MCG/HR Midazolam HCl 100 mg/ Sodium 100 mls @ 1 mls/hr 03/05/17 09:00 03/05/17 09:52 Chloride IVPB 2 mls/hr TITR [facility] Administration Protocol 1 MG/HR Insulin Aspart 1 vial 03/03/17 11:00 03/05/17 06:27 Novolog Vial Sliding Scale - SQ 2 units ACHS [facility] Administration Protocol Insulin Detemir 5 units 03/05/17 16:30 Levemir Vial SQ BIDI [facility] Levothyroxine Sodium 25 mcg 02/23/17 10:00 03/05/17 06:27 Synthroid - PO Not Given DAILY@0700 [facility] Lidocaine 1 patch 03/04/17 10:00 03/05/17 09:55 Lidoderm Patch - TP 1 patch DAILY [facility] Administration Methylprednisolone Sodium Succinate 40 mg 03/05/17 22:00 Solu-Medrol - IVPB BID [facility] Metoprolol Tartrate 25 mg 03/03/17 14:00 03/05/17 13:48 Lopressor - PO Not Given TID [facility] Mometasone Furoate 2 puff 03/02/17 16:45 03/05/17 09:49 Asmanex 220mcg - IH Not Given DAILY [facility] Multi-Ingredient Ointment 1 applic 02/24/17 10:30 03/05/17 09:55 Zinc Oxide TP 1 applic BID [facility] Administration Multivitamins/Minerals/Vitamin C 1 tab 02/23/17 10:00 03/05/17 09:48 Tab-A-Vit - PO Not Given DAILY [facility] Vortioxetine ( 1 each 02/25/17 08:00 03/05/17 09:48 Trintellix) 10 Mg PO Not Given Tablet (Pt's Own) DAILY@0800 [facility] Nystatin 500,000 units 02/27/17 18:00 03/05/17 13:50 Nystatin Oral Suspension - PO Not Given Q6HPO [facility] Ondansetron HCl 4 mg 02/23/17 08:18 03/02/17 07:12 Zofran Injection IVPB 4 mg Q6H PRN Administration NAUSEA Pancrelipase 3 cap 02/24/17 12:00 03/05/17 13:48 [place] 6,000 Units Capsule PO Not Given TIDCM [facility] Pantoprazole Sodium 40 mg 02/24/17 11:30 03/05/17 09:48 Protonix - PO Not Given DAILY [facility] Piperacillin Sod/Tazobactam Sod 3.375 gm 03/03/17 12:30 03/05/17 09:54 Zosyn 3.375gm Ivpb (Pre-Docked) IVPB 3.375 gm Q8H-IV [facility] Administration Protocol Roflumilast 500 mcg 02/23/17 10:00 03/05/17 10:06 Daliresp - PO Not Given DAILY [facility] Sodium Chloride 2 spray 03/04/17 14:00 [place] Nasal [place] - NS TID PRN NASAL CONGESTION Microbiology 03/02/17 12:40 Blood Culture - Preliminary Blood - Peripheral Venous NO GROWTH OBTAINED AFTER 72 HOURS, INCUBATION TO CONTINUE FOR 2 DAYS. 03/03/17 00:05 Gram Stain - Final Sputum - Endotrachea Suction/Ventilator Sputum Culture - Final Pseudomonas Aeruginosa Yeast Like Organism 03/02/17 11:20 Blood Culture - Preliminary Blood - Peripheral Venous NO GROWTH OBTAINED AFTER 72 HOURS, INCUBATION TO CONTINUE FOR 2 DAYS. 03/02/17 23:55 Blood Culture - Preliminary Blood - Peripheral Venous NO GROWTH OBTAINED AFTER 48 HOURS, INCUBATION TO CONTINUE FOR 3 DAYS. 03/02/17 23:55 Blood Culture - Preliminary Blood - Peripheral Venous NO GROWTH OBTAINED AFTER 48 HOURS, INCUBATION TO CONTINUE FOR 3 DAYS. Assessment: 51 year old female pmhx of COPD on home O2, previous trach, Afib, HTN, anxiety, bipolar disorder and depression admitted to hospital with bronchitis and diarrhea, transferred to ICU s/p hypercarbic respiratory arrest, now extubated 03/04. Plan: 1. Acute on chroinc hypoxic and hypercapnic Respiratory Failure - Re intubated today - Maintain sedation with vent support - Mucomyst with albuterol - [facility] - Trial for extubation tomorrow - D/w ICU team 2. Acute COPD/Asthma exacerbation - Taper solumedrol 40 BID - Continue Roflumilast - Symbicort BID 3. HCAP coverage - Sputum pseudomonas aeruginosa - Emperic zosyn (day 3) - Vanco s/p 4 days - CXR left pleural effusion 4. AFIB - In sinus - Continue cardizem 60mg q6 5. HTN - Lopressor 25mg TID 6. Transaminitis - Likely due to arrest - Down trending; will monitor 7. DM II - Levemir 5 BID - ISS, BGM ACHS 8. Hypothroidism - Synthroid 25mg daily 9. Anxiety, depression, chronic pain - Cont standing anti depressants - Cont neurontin and baclofen for chronic pain - Caution with narcotic use low threshold for co2 retention s/p extubation 10. Nutrition - NS @75cc/hr - NGT placement 11. Hypokalemia - Replete potassium 10meq x2 riders Visit type - Emergency Visit Emergency Visit: Yes ED Registration Date: 02/24/17 Care time: The patient presented to the Emergency Department on the above date and was hospitalized for further evaluation of their emergent condition. - New Patient This patient is new to me today: No - Critical Care Critical Care patient: No
[2017-03-05] MEDS ORDERED: MIDAZOLAM HCL 5 MG/1 ML Single Dose Vial IVPUSH ONE (16:16)
--- NOTE | 2017-03-05 16:54 | PROC ---
Central Line Insertion Indication: Poor Venous Access Risks and Benefits Explained: Yes Consent on Chart: Yes Central Line: Triple Lumen Catheter Anesthesia: 1% Lidocaine Sterile Technique: Yes Ultrasound Guided Assistance: Yes Position: Right Internal Jugular Post Insertion: Yes: Bilateral Breath Sounds, Bilateral Chest Expansion, Chest X-Ray Ordered Sterile Dressing Applied: Yes
[2017-03-05] MEDS: KCL 10 MEQ IVPB 100 ML IVPB SCH ×2 (16:55→17:55)
[2017-03-05] MEDS: INSULIN DETEMIR 100 UNITS/ML MDV SQ SCH (17:06)
[2017-03-05] MEDS ORDERED: methylPREDNISolone NA SUCC 40 MG/1 ML VIAL IVPB SCH (22:00)
[2017-03-05] MEDS: ALBUTEROL SO4 0.083% IH SOL 2.5 MG/3 ML VIAL.NEB. NEB PRN (23:10)
[2017-03-05] MEDS: DOXEPIN HCL 25 MG CAPSULE PO SCH (23:26)
[2017-03-06] MEDS: NYSTATIN 500,000 UNITS/5 ML SUSPENSION PO SCH ×5 (01:19→17:15)
[2017-03-06] MEDS: PIPERACILLIN/TAZOB 3.375 GM/50 ML PRE-DOCKED IVPB SCH ×3 (01:20→17:14)
[2017-03-06] MEDS: dilTIAZem HCL 60 MG TABLET (FP) PO SCH ×4 (06:04→23:00)
[2017-03-06] MEDS: HEPARIN NA (PORCINE) 5,000 UNITS/ML 1ML VIAL SQ SCH ×3 (06:05→22:59)
[2017-03-06] MEDS: METOPROLOL TARTRATE 25 MG TABLET (FP) PO SCH ×3 (06:05→22:59)
[2017-03-06] MEDS: GABAPENTIN 300 MG CAPSULE (FP) PO SCH ×3 (06:05→22:59)
[2017-03-06] MEDS: BACLOFEN 10 MG TABLET (FP) PO SCH ×3 (06:05→23:55)
[2017-03-06] MEDS: LEVOTHYROXINE NA 25 MCG TABLET (FP) PO SCH (06:05)
[2017-03-06] MEDS: INSULIN SLIDING SCALE (NOVOLOG) 1 VIAL SQ SCH ×4 (06:06→23:41)
[2017-03-06] MEDS: INSULIN DETEMIR 100 UNITS/ML MDV SQ SCH ×2 (06:06→17:10)
[2017-03-06] MEDS: ALBUTEROL SO4 0.083% IH SOL 2.5 MG/3 ML VIAL.NEB. NEB PRN ×2 (06:20→23:57)
[2017-03-06] MEDS: ACETYLCYSTEINE 20% 200MG/ML 4 ML VIAL *FOR ORAL / INH USE ONLY NEB SCH ×4 (06:20→23:56)
[2017-03-06 06:29] LABS: BASOPHIL 0.3 % (0-2.0); MCHC 33.8 g/dl (32.0-36.0); MEAN CELL VOLUME 79.9 fl (80-96); MEAN PLT VOLUME 9.4 fl (7.5-11.1); NEUTROPHILS 92.7 % (42.8-82.8); PLATELET COUNT 191 K/MM3 (134-434); RDW 17.4 % (11.6-15.6); WHITE BLOOD COUNT 7.7 K/mm3 (4.0-10.0)
[2017-03-06 06:35] LABS: ANION GAP 9 (8-16); CALCIUM 7.2 mg/dL (8.5-10.1); CO2 31 mmol/L (21-32); COCKROFT - GAULT 162.35; CREATININE 0.4 mg/dL (0.55-1.02); GLUCOSE,RANDOM 109 mg/dL (74-106); SGOT/AST 21 U/L (15-37); SGPT/ALT 153 U/L (12-78)
[2017-03-06 06:37] LABS: ALK PHOS 77 U/L (45-117); BILIRUBIN,TOTAL 0.6 mg/dL (0.2-1.0)
[2017-03-06] MEDS: ALBUTEROL SO4 2.5/IPRATROPIUM 0.5 INH SOL 3 ML VIAL.NEB. NEB SCH ×4 (06:54→23:57)
[2017-03-06] MEDS ORDERED: MAGNESIUM OXIDE 400 MG TABLET (FP) PO ONE ×2 (07:08→13:30)
[2017-03-06] MEDS ORDERED: POTASSIUM CHLORIDE ORAL LIQUID 20 MEQ/15 ML PO ONE (07:08)
--- NOTE | 2017-03-06 07:22 | PN ---
Progress Note, Physician Chief Complaint: ID Intubated Zosyn day 3 Rx - Current Medication List Current Medications: Active Medications Acetaminophen (Tylenol -) 1,000 mg PO Q6H PRN PRN Reason: PAIN Acetylcysteine (Mucomyst 20 Oral / Inh Use Only*) 200 mg NEB QIDR [facility] Last Admin: 03/06/17 06:20 Dose: 200 mg Albuterol Sulfate (Ventolin 0.083% Nebulizer Soln -) 1 amp NEB Q2H PRN PRN Reason: SHORT OF BREATH/WHEEZING Last Admin: 03/06/17 06:20 Dose: 1 amp Albuterol/Ipratropium (Duoneb -) 1 amp NEB QIDR [facility] Last Admin: 03/06/17 06:54 Dose: Not Given Alprazolam (Xanax -) 0.25 mg PO Q8H PRN PRN Reason: ANXIETY Baclofen (Lioresal -) 20 mg PO TID [facility] Last Admin: 03/06/17 06:05 Dose: 20 mg Budesonide/Formoterol Fumarate (Symbicort 160/4.5mcg -) 2 puff IH BID [facility] Last Admin: 03/05/17 23:18 Dose: Not Given Cholecalciferol (Vitamin D3 -) 2,000 unit PO DAILY [facility] Last Admin: 03/05/17 09:49 Dose: Not Given Diltiazem HCl (Cardizem -) 60 mg PO Q6HPO [facility] Last Admin: 03/06/17 06:04 Dose: 60 mg Diphenhydramine HCl (Benadryl Oral Solution -) 25 mg PO Q4H PRN PRN Reason: FOR ITCHING Docusate Sodium (Colace -) 100 mg PO BID PRN PRN Reason: CONSTIPATION Last Admin: 02/26/17 21:49 Dose: 100 mg Doxepin HCl (Sinequan -) 25 mg PO HS [facility] Last Admin: 03/05/17 23:26 Dose: 25 mg Eletriptan (Relpax -) 40 mg PO Q6H PRN PRN Reason: HEADACHE Last Admin: 03/02/17 10:54 Dose: 40 mg Gabapentin (Neurontin -) 300 mg PO TID [facility] Last Admin: 03/06/17 06:05 Dose: 300 mg Guaifenesin (Mucinex -) 600 mg PO BID [facility] Last Admin: 03/05/17 23:17 Dose: 600 mg Guaifenesin (Robitussin -) 10 ml PO Q6H PRN PRN Reason: COUGH Last Admin: 02/28/17 05:52 Dose: 10 ml Heparin Sodium (Porcine) (Heparin -) 5,000 unit SQ TID [facility] Last Admin: 03/06/17 06:05 Dose: 5,000 unit Hydromorphone HCl (Dilaudid Injection -) 1 mg IVPB Q4H PRN PRN Reason: PAIN Last Admin: 03/05/17 03:55 Dose: 1 mg Sodium Chloride (Normal Saline -) 1,000 mls @ 75 mls/hr IV ASDIR [facility] Last Admin: 03/05/17 09:50 Dose: 75 mls/hr Propofol (Diprivan -) 100 mls @ 1.818 mls/hr IVPB TITR [facility]MM[facility]; 5 MCG/KG/MIN PRN Reason: Protocol Last Admin: 03/05/17 23:57 Dose: 21 mls/hr Fentanyl 500 mcg/ Dextrose 100 mls @ 5 mls/hr IJ TITR [facility] PRN Reason: 25 MCG/HR Last Admin: 03/05/17 09:17 Dose: 5 mls/hr Midazolam HCl 100 mg/ Sodium (Chloride) 100 mls @ 1 mls/hr IVPB TITR EMMY; 1 MG/ HR PRN Reason: Protocol Last Admin: 03/05/17 09:52 Dose: 2 mls/hr Potassium Chloride (Potassium Chloride 10 Meq Premix Ivpb -) 100 mls @ 100 mls/ hr IVPB Q60M [facility] Stop: 03/06/17 10:14 Insulin Aspart (Novolog Vial Sliding Scale -) 1 vial SQ ACHS [facility] PRN Reason: Protocol Last Admin: 03/06/17 06:06 Dose: Not Given Insulin Detemir (Levemir Vial) 5 units SQ BIDI [facility] Last Admin: 03/06/17 06:06 Dose: 5 units Levothyroxine Sodium (Synthroid -) 25 mcg PO DAILY@0700 [facility] Last Admin: 03/06/17 06:05 Dose: 25 mcg Lidocaine (Lidoderm Patch -) 1 patch TP DAILY [facility] Last Admin: 03/05/17 09:55 Dose: 1 patch Methylprednisolone Sodium Succinate (Solu-Medrol -) 40 mg IVPB BID [facility] Last Admin: 03/05/17 23:17 Dose: 40 mg Metoprolol Tartrate (Lopressor -) 25 mg PO TID [facility] Last Admin: 03/06/17 06:05 Dose: 25 mg Mometasone Furoate (Asmanex 220mcg -) 2 puff IH DAILY [facility] Last Admin: 03/05/17 09:49 Dose: Not Given Multi-Ingredient Ointment (Zinc Oxide) 1 applic TP BID [facility] Last Admin: 03/05/17 23:24 Dose: 1 applic Multivitamins/Minerals/Vitamin C (Tab-A-Vit -) 1 tab PO DAILY [facility] Last Admin: 03/05/17 09:48 Dose: Not Given Vortioxetine ( Trintellix) 10 Mg Tablet (Pt's Own) 1 each PO DAILY@0800 [facility] Last Admin: 03/05/17 09:48 Dose: Not Given Nystatin (Nystatin Oral Suspension -) 500,000 units PO Q6HPO [facility] Last Admin: 03/06/17 06:04 Dose: 500,000 units Ondansetron HCl (Zofran Injection) 4 mg IVPB Q6H PRN PRN Reason: NAUSEA Last Admin: 03/02/17 07:12 Dose: 4 mg Pancrelipase (Creon Dr 6,000 Units Capsule) 3 cap PO TIDCM [facility] Last Admin: 03/05/17 16:39 Dose: Not Given Pantoprazole Sodium (Protonix -) 40 mg PO DAILY [facility] Last Admin: 03/05/17 09:48 Dose: Not Given Piperacillin Sod/Tazobactam Sod (Zosyn 3.375gm Ivpb (Pre-Docked)) 3.375 gm IVPB Q8H-IV [facility] PRN Reason: Protocol Last Admin: 03/06/17 01:20 Dose: 3.375 gm Roflumilast (Daliresp -) 500 mcg PO DAILY [facility] Last Admin: 03/05/17 10:06 Dose: Not Given Sodium Chloride ([place] -) 2 spray NS TID PRN PRN Reason: NASAL CONGESTION - Objective Vital Signs: Vital Signs Temperature 98.9 F 03/06/17 02:00 Pulse Rate 93 H 03/06/17 06:00 Respiratory Rate 18 03/06/17 06:10 Blood Pressure 118/80 03/06/17 06:00 O2 Sat by Pulse Oximetry (%) 99 03/05/17 09:00 Cardiovascular: Yes: Regular Rate and Rhythm, S1, S2 Respiratory: Yes: WNL, Regular, CTA Bilaterally, Rhonchi Gastrointestinal: Yes: Soft. No: Tenderness Labs: CBC, BMP 03/06/17 05:15 03/06/17 05:15 INR, PTT INR 1.04 (0.82-1.09) 03/03/17 05:30 Assessment/Plan Microbiology 03/03/17 00:05 Sputum - Endotrachea Suction/Ventilator Gram Stain - Final 03/03/17 00:05 Sputum - Endotrachea Suction/Ventilator Sputum Culture - Final Pseudomonas Aeruginosa Yeast Like Organism 03/02/17 23:55 Blood - Peripheral Venous Blood Culture - Preliminary NO GROWTH OBTAINED AFTER 72 HOURS, INCUBATION TO CONTINUE FOR 2 DAYS. 03/02/17 23:55 Blood - Peripheral Venous Blood Culture - Preliminary NO GROWTH OBTAINED AFTER 72 HOURS, INCUBATION TO CONTINUE FOR 2 DAYS. Laboratory Tests 03/05/17 03/06/17 03/06/17 10:45 05:15 05:15 WBC 7.7 Hgb 7.2 L D Hct 21.4 L D Plt Count 191 D ABG pH 7.45 ABG pCO2 at Pt Temp 40.8 ABG pO2 at Pt Temp 474.0 H* BUN 17 Creatinine 0.4 L Assessment Respiratory failure COPD Pseudomonas in sputum being treated unsure however pneumonia WBC down Plan Continue current therapy as ordered Martha WRIGHT
[2017-03-06] MEDS: FENTANYL INJECTION 500 MCG in DEXTROSE 5%-WATER - 90 ML IJ SCH ×2 (09:00→23:54)
[2017-03-06] MEDS: PROPOFOL 100 ML IVPB SCH ×2 (09:10→21:54)
[2017-03-06] MEDS ORDERED: PT OWN MED DRAWER 7, Y5N ONE ×2 (09:39→21:54)
[2017-03-06] MEDS: MIDAZOLAM 100 MG in SODIUM CHLORIDE 100 ML IVPB SCH (09:59)
[2017-03-06] MEDS: SODIUM CHLORIDE 1,000 ML IV SCH (10:00)
[2017-03-06] MEDS: LIDOCAINE 5% TOPICAL PATCH TP SCH (10:04)
[2017-03-06] MEDS: ZINC OXIDE 20% TOPICAL OINTMENT 30 GM TUBE TP SCH ×2 (10:04→23:04)
[2017-03-06 10:49] LABS: MAGNESIUM 2.4 mg/dL (1.8-2.4)
--- NOTE | 2017-03-06 11:07 | PN ---
Physical Exam: SUBJECTIVE: Patient seen and examined. Patient intubated and sedated. leak test done, patient tidal volume didn't decrease. could have stricture from last tracheostomy Patient on tube feed spo2 99, pr 76, 107/72 will stop midazolam OBJECTIVE: Vital Signs Period Temp Pulse Resp BP Sys/Dan Pulse Ox Last 24 Hr 98.8 F-99.0 F 88-117 14-28 106-148/78-90 GENERAL: intubated awake, sedated HEAD: Normal with no signs of trauma. EYES: PERRL, ENT: Ears normal, nares patent, moist mucous membranes. NECK: Trachea midline, full range of motion, supple. LUNGS: Breath sounds equal, b/l rales and wheez. HEART: Regular rate, sis2 normal . ABDOMEN: Soft, nontender, nondistended, normoactive bowel sounds, no guarding, no rebound, EXTREMITIES: 2+ pulses, warm, no edema. SKIN: Warm, dry, Laboratory Results - last 24 hr 03/05/17 03/05/17 03/05/17 10:20 10:20 12:57 WBC RBC Hgb Hct MCV MCHC RDW Plt Count MPV Neutrophils % Lymphocytes % Monocytes % Eosinophils % Basophils % Sodium Potassium Chloride Carbon Dioxide Anion Gap BUN Creatinine Creat Clearance w eGFR POC Glucometer 172.42770 Random Glucose Lactic Acid 1.118 Calcium Magnesium Total Bilirubin AST ALT Alkaline Phosphatase Troponin I < 0.02 Total Protein Albumin 03/05/17 03/05/17 03/06/17 17:24 22:41 05:15 WBC 7.7 RBC 2.68 L Hgb 7.2 L D Hct 21.4 L D MCV 79.9 L MCHC 33.8 RDW 17.4 H Plt Count 191 D MPV 9.4 Neutrophils % 92.7 H Lymphocytes % 3.8 L D Monocytes % 3.2 L Eosinophils % 0.0 Basophils % 0.3 Sodium Potassium Chloride Carbon Dioxide Anion Gap BUN Creatinine Creat Clearance w eGFR POC Glucometer 127.31616 91.14119 Random Glucose Lactic Acid Calcium Magnesium Total Bilirubin AST ALT Alkaline Phosphatase Troponin I Total Protein Albumin 03/06/17 05:15 WBC RBC Hgb Hct MCV MCHC RDW Plt Count MPV Neutrophils % Lymphocytes % Monocytes % Eosinophils % Basophils % Sodium 144 Potassium 3.2 L Chloride 104 Carbon Dioxide 31 Anion Gap 9 BUN 17 Creatinine 0.4 L Creat Clearance w eGFR > 60 POC Glucometer Random Glucose 109 H D Lactic Acid Calcium 7.2 L Magnesium 2.4 Total Bilirubin 0.6 AST 21 D ALT 153 H Alkaline Phosphatase 77 Troponin I Total Protein 5.0 L Albumin 2.0 L Active Medications Generic Name Dose Route Start Last Admin Trade Name Freq PRN Reason Stop Dose Admin Acetaminophen 1,000 mg 02/26/17 20:20 Tylenol - PO Q6H PRN PAIN Acetylcysteine 200 mg 02/25/17 18:00 03/06/17 06:20 Mucomyst 20 Oral / Inh Use Only* NEB 200 mg QIDR [facility] Administration Albuterol Sulfate 1 amp 03/02/17 16:34 03/06/17 06:20 Ventolin 0.083% Nebulizer Soln - NEB 1 amp Q2H PRN Administration SHORT OF BREATH/WHEEZING Albuterol/Ipratropium 1 amp 03/03/17 06:00 03/06/17 06:54 Duoneb - NEB Not Given QIDR [facility] Alprazolam 0.25 mg 03/04/17 21:36 Xanax - PO Q8H PRN ANXIETY Baclofen 20 mg 02/23/17 14:00 03/06/17 06:05 Lioresal - PO 20 mg TID [facility] Administration Budesonide/Formoterol Fumarate 2 puff 02/23/17 10:00 03/05/17 23:18 Symbicort 160/4.5mcg - IH Not Given BID [facility] Cholecalciferol 2,000 unit 02/24/17 10:00 03/05/17 09:49 Vitamin D3 - PO Not Given DAILY [facility] Dexamethasone Sodium Phosphate 8 mg 03/06/17 11:15 Decadron Injection - IVPUSH Q8H [facility] Diltiazem HCl 60 mg 03/03/17 18:00 03/06/17 06:04 Cardizem - PO 60 mg Q6HPO [facility] Administration Diphenhydramine HCl 25 mg 02/23/17 17:32 Benadryl Oral Solution - PO Q4H PRN FOR ITCHING Docusate Sodium 100 mg 02/26/17 20:19 02/26/17 21:49 Colace - PO 100 mg BID PRN Administration CONSTIPATION Doxepin HCl 25 mg 02/23/17 22:00 03/05/17 23:26 Sinequan - PO 25 mg HS [facility] Administration Eletriptan 40 mg 02/24/17 10:38 03/02/17 10:54 Relpax - PO 40 mg Q6H PRN Administration HEADACHE Gabapentin 300 mg 02/23/17 14:00 03/06/17 06:05 Neurontin - PO 300 mg TID [facility] Administration Guaifenesin 600 mg 02/26/17 22:00 03/05/17 23:17 Mucinex - PO 600 mg BID [facility] Administration Guaifenesin 10 ml 02/26/17 17:39 02/28/17 05:52 Robitussin - PO 10 ml Q6H PRN Administration COUGH Heparin Sodium (Porcine) 5,000 unit 02/23/17 22:00 03/06/17 06:05 Heparin - SQ 5,000 unit TID [facility] Administration Hydromorphone HCl 1 mg 02/26/17 20:16 03/05/17 03:55 Dilaudid Injection - IVPB 1 mg Q4H PRN Administration PAIN Sodium Chloride 1,000 mls @ 75 mls/hr 03/05/17 08:30 03/05/17 09:50 Normal Saline - IV 75 mls/hr ASDIR [facility] Administration Propofol 100 mls @ 1.818 mls/hr 03/05/17 09:00 03/05/17 23:57 Diprivan - IVPB 21 mls/hr TITR [facility] Administration Protocol 5 MCG/KG/MIN Fentanyl 500 mcg/ Dextrose 100 mls @ 5 mls/hr 03/05/17 09:00 03/05/17 09:17 IJ 5 mls/hr TITR [facility] Administration 25 MCG/HR Midazolam HCl 100 mg/ Sodium 100 mls @ 1 mls/hr 03/05/17 09:00 03/06/17 09:59 Chloride IVPB 2 mls/hr TITR [facility] Administration Protocol 1 MG/HR Insulin Aspart 1 vial 03/03/17 11:00 03/06/17 06:06 Novolog Vial Sliding Scale - SQ Not Given ACHS [facility] Protocol Insulin Detemir 5 units 03/05/17 16:30 03/06/17 06:06 Levemir Vial SQ 5 units BIDI [facility] Administration Levothyroxine Sodium 25 mcg 02/23/17 10:00 03/06/17 06:05 Synthroid - PO 25 mcg DAILY@0700 [facility] Administration Lidocaine 1 patch 03/04/17 10:00 03/06/17 10:04 Lidoderm Patch - TP 1 patch DAILY [facility] Administration Metoprolol Tartrate 25 mg 03/03/17 14:00 03/06/17 06:05 Lopressor - PO 25 mg TID [facility] Administration Mometasone Furoate 2 puff 03/02/17 16:45 03/05/17 09:49 Asmanex 220mcg - IH Not Given DAILY [facility] Multi-Ingredient Ointment 1 applic 02/24/17 10:30 03/06/17 10:04 Zinc Oxide TP 1 applic BID [facility] Administration Multivitamins/Minerals/Vitamin C 1 tab 02/23/17 10:00 03/05/17 09:48 Tab-A-Vit - PO Not Given DAILY [facility] Vortioxetine ( 1 each 02/25/17 08:00 03/05/17 09:48 Trintellix) 10 Mg PO Not Given Tablet (Pt's Own) DAILY@0800 [facility] Nystatin 500,000 units 02/27/17 18:00 03/06/17 06:04 Nystatin Oral Suspension - PO 500,000 units Q6HPO [facility] Administration Ondansetron HCl 4 mg 02/23/17 08:18 03/02/17 07:12 Zofran Injection IVPB 4 mg Q6H PRN Administration NAUSEA Pancrelipase 3 cap 02/24/17 12:00 03/05/17 16:[address] 6,000 Units Capsule PO Not Given TIDCM [facility] Pantoprazole Sodium 40 mg 02/24/17 11:30 03/05/17 09:48 Protonix - PO Not Given DAILY [facility] Piperacillin Sod/Tazobactam Sod 3.375 gm 03/03/17 12:30 03/06/17 10:01 Zosyn 3.375gm Ivpb (Pre-Docked) IVPB 3.375 gm Q8H-IV [facility] Administration Protocol Roflumilast 500 mcg 02/23/17 10:00 03/05/17 10:06 Daliresp - PO Not Given DAILY [facility] Sodium Chloride 2 spray 03/04/17 14:00 [place] - NS TID PRN NASAL CONGESTION Microbiology 03/02/17 23:55 Blood - Peripheral Venous Blood Culture - Preliminary NO GROWTH OBTAINED AFTER 72 HOURS, INCUBATION TO CONTINUE FOR 2 DAYS. 03/02/17 23:55 Blood - Peripheral Venous Blood Culture - Preliminary NO GROWTH OBTAINED AFTER 72 HOURS, INCUBATION TO CONTINUE FOR 2 DAYS. 03/02/17 12:40 Blood - Peripheral Venous Blood Culture - Preliminary NO GROWTH OBTAINED AFTER 72 HOURS, INCUBATION TO CONTINUE FOR 2 DAYS. 03/03/17 00:05 Sputum - Endotrachea Suction/Ventilator Gram Stain - Final 03/03/17 00:05 Sputum - Endotrachea Suction/Ventilator Sputum Culture - Final Pseudomonas Aeruginosa Yeast Like Organism 03/02/17 11:20 Blood - Peripheral Venous Blood Culture - Preliminary NO GROWTH OBTAINED AFTER 72 HOURS, INCUBATION TO CONTINUE FOR 2 DAYS. 02/23/17 08:24 Nasopharyngeal Swab Respiratory Virus Panel - Final 02/23/17 01:52 Blood - Peripheral Venous Blood Culture - Final NO GROWTH AFTER 5 DAYS INCUBATION 02/23/17 01:52 Blood - Peripheral Venous Blood Culture - Final NO GROWTH AFTER 5 DAYS INCUBATION 02/23/17 23:05 Stool Clostridium difficile Antigen ([place]) - Final 02/23/17 23:05 Stool Clostridium difficile Toxin Assay - Final 02/23/17 08:24 Nasopharyngeal Swab Influenza Types A,B Antigen ([place]) - Final 02/23/17 08:24 Nasopharyngeal Swab - Final ASSESSMENT/PLAN: Hypercapnic Respiratory Failure secondary to copd excerbation -on ventilator support -Sedation with Propofol drip fentanyl -Cont Albuterol nebs and Atrovent nebs -Cont Solumedrol 40mg bid -Antibiotics as per id : willam day 3 -Aspiration precautions - monitor vitals - keep spo2 >90 - follow culture - will change solumedrol to dexa, has more antiinflamatory reaction. will help in decreasing edema or swelling around the side of tracheostomy. In last extubation patient had stridor. :Leukocytosis: HCAP - blood culture no growth, sputum has pseudomonas - wbc decreased to 7 - antibiotics as per id zosyn Afib, HTN; hypertensive post arrest; troponin wnl start with metoprolol tartrate and cardiazem - Hypokalemia will give her kcl iv 30 and po 20 repeat k in am follow magnesium Elevated AST/ALT/Alk phos - improving - follow lft Neuro/Psyche: Anxiety, depression, chronic pain -Cont standing anti depressant -Cont neurontin and baclofen for chronic pain fluid : NS 75 ml/hr electrolyte : hypokalemia, follow K in morning nutrition; tube feed as per dietary recommendations Proph: Hep SQ/PPI gi pro : on protonix dispo : admit in icu Visit type - Emergency Visit Emergency Visit: Yes ED Registration Date: 02/24/17 Care time: The patient presented to the Emergency Department on the above date and was hospitalized for further evaluation of their emergent condition. - New Patient This patient is new to me today: No - Critical Care Critical Care patient: Yes Total Critical Care Time (in minutes): 45 Critical Care Statement: The care of this patient involved high complexity decision making to prevent further life threatening deterioration of the patient 's condition and/or to evalute & treat vital organ system(s) failure or risk of failure.
[2017-03-06] MEDS: LIPASE/PROTEASE/AMYLASE 6,000 UNIT CAPSULE PO SCH ×3 (12:43→16:35)
[2017-03-06] MEDS: KCL 10 MEQ IVPB 100 ML IVPB SCH ×3 (12:45→14:38)
[2017-03-06] MEDS: MOMETASONE FUROATE 220 MCG/IH INHALER IH SCH (12:50)
[2017-03-06] MEDS: CHOLECALCIFEROL (VITAMIN D3) 1,000 UNIT TABLET (FP) PO SCH (12:59)
[2017-03-06] MEDS: ROFLUMILAST 500 MCG TABLET PO SCH (13:01)
[2017-03-06] MEDS: MULTIVITAMINS (DAILY MVI) TABLET (FP) PO SCH (13:05)
[2017-03-06] MEDS: guaiFENesin 600 MG TABLET.ER (FP) PO SCH ×2 (13:06→23:03)
[2017-03-06] MEDS: BUDESONIDE/FORMETEROL FUMARATE 160/4.5 mcg INHALER IH SCH ×2 (13:09→23:55)
[2017-03-06] MEDS: DEXAMETHASONE SOD PHOSPHATE 10 MG/1 ML VIAL IVPUSH SCH ×2 (13:17→17:14)
[2017-03-06] MEDS: VORTIOXETINE 10 MG PO SCH (13:21)
[2017-03-06] MEDS ORDERED: KCL 10 MEQ IVPB 100 ML IVPB SCH (14:00)
[2017-03-06] MEDS: PANTOPRAZOLE 40 MG TABLET (FP) PO SCH (15:38)
--- NOTE | 2017-03-06 15:44 | PN ---
Teaching Attending Note Name of Resident: Nabor Weldon ATTENDING PHYSICIAN STATEMENT I saw and evaluated the patient. I reviewed the resident's note and discussed the case with the resident. I agree with the resident's findings and plan as documented. SUBJECTIVE: Patient seen and examined in the ICU. Remains intubated and sedated. AC Mode of vent. No pressors. No leak noted on leak testing -> airway edema OBJECTIVE: Intake & Output 03/03/17 03/04/17 03/05/17 03/06/17 23:59 23:59 23:59 23:59 Intake Total 1251 2920.4 2530 714 Output Total 1600 3050 1700 1500 Balance -349 -129.6 830 -786 Weight 140 lb 9.6 oz 133 lb 9.6 oz 128 lb 6 oz Last Vital Signs Temp Pulse Resp BP Pulse Ox 98.9 F 93 H 12 118/80 99 03/06/17 02:00 03/06/17 06:00 03/06/17 13:49 03/06/17 06:00 03/05/17 09:00 Active Medications Acetaminophen (Tylenol -) 1,000 mg PO Q6H PRN PRN Reason: PAIN Acetylcysteine (Mucomyst 20 Oral / Inh Use Only*) 200 mg NEB QIDR [facility] Last Admin: 03/06/17 11:49 Dose: 200 mg Albuterol Sulfate (Ventolin 0.083% Nebulizer Soln -) 1 amp NEB Q2H PRN PRN Reason: SHORT OF BREATH/WHEEZING Last Admin: 03/06/17 06:20 Dose: 1 amp Albuterol/Ipratropium (Duoneb -) 1 amp NEB QIDR [facility] Last Admin: 03/06/17 11:50 Dose: 1 amp Alprazolam (Xanax -) 0.25 mg PO Q8H PRN PRN Reason: ANXIETY Baclofen (Lioresal -) 20 mg PO TID [facility] Last Admin: 03/06/17 13:17 Dose: 20 mg Budesonide/Formoterol Fumarate (Symbicort 160/4.5mcg -) 2 puff IH BID [facility] Last Admin: 03/06/17 13:09 Dose: Not Given Cholecalciferol (Vitamin D3 -) 2,000 unit PO DAILY [facility] Last Admin: 03/06/17 12:59 Dose: 2,000 unit Dexamethasone Sodium Phosphate (Decadron Injection -) 8 mg IVPUSH Q8H-IV [facility] Last Admin: 03/06/17 13:17 Dose: 8 mg Diltiazem HCl (Cardizem -) 60 mg PO Q6HPO [facility] Last Admin: 03/06/17 13:18 Dose: 60 mg Diphenhydramine HCl (Benadryl Oral Solution -) 25 mg PO Q4H PRN PRN Reason: FOR ITCHING Docusate Sodium (Colace -) 100 mg PO BID PRN PRN Reason: CONSTIPATION Last Admin: 02/26/17 21:49 Dose: 100 mg Doxepin HCl (Sinequan -) 25 mg PO HS [facility] Last Admin: 03/05/17 23:26 Dose: 25 mg Eletriptan (Relpax -) 40 mg PO Q6H PRN PRN Reason: HEADACHE Last Admin: 03/02/17 10:54 Dose: 40 mg Gabapentin (Neurontin -) 300 mg PO TID [facility] Last Admin: 03/06/17 13:23 Dose: Not Given Guaifenesin (Mucinex -) 600 mg PO BID [facility] Last Admin: 03/06/17 13:06 Dose: 600 mg Guaifenesin (Robitussin -) 10 ml PO Q6H PRN PRN Reason: COUGH Last Admin: 02/28/17 05:52 Dose: 10 ml Heparin Sodium (Porcine) (Heparin -) 5,000 unit SQ TID [facility] Last Admin: 03/06/17 13:11 Dose: 5,000 unit Hydromorphone HCl (Dilaudid Injection -) 1 mg IVPB Q4H PRN PRN Reason: PAIN Last Admin: 03/05/17 03:55 Dose: 1 mg Sodium Chloride (Normal Saline -) 1,000 mls @ 75 mls/hr IV ASDIR [facility] Last Admin: 03/06/17 10:00 Dose: 75 mls/hr Propofol (Diprivan -) 100 mls @ 1.818 mls/hr IVPB TITR [facility]; 5 MCG/KG/MIN PRN Reason: Protocol Last Admin: 03/06/17 09:10 Dose: 21 mls/hr Fentanyl 500 mcg/ Dextrose 100 mls @ 5 mls/hr IJ TITR [facility] PRN Reason: 25 MCG/HR Last Admin: 03/06/17 09:00 Dose: 5 mls/hr Potassium Chloride (Potassium Chloride 10 Meq Premix Ivpb -) 100 mls @ 100 mls/ hr IVPB Q60M [facility] Stop: 03/06/17 15:59 Insulin Aspart (Novolog Vial Sliding Scale -) 1 vial SQ ACHS [facility] PRN Reason: Protocol Last Admin: 03/06/17 13:57 Dose: Not Given Insulin Detemir (Levemir Vial) 5 units SQ BIDI [facility] Last Admin: 03/06/17 06:06 Dose: 5 units Levothyroxine Sodium (Synthroid -) 25 mcg PO DAILY@0700 [facility] Last Admin: 03/06/17 06:05 Dose: 25 mcg Lidocaine (Lidoderm Patch -) 1 patch TP DAILY [facility] Last Admin: 03/06/17 10:04 Dose: 1 patch Metoprolol Tartrate (Lopressor -) 25 mg PO TID [facility] Last Admin: 03/06/17 13:05 Dose: Not Given Mometasone Furoate (Asmanex 220mcg -) 2 puff IH DAILY [facility] Last Admin: 03/06/17 12:50 Dose: Not Given Multi-Ingredient Ointment (Zinc Oxide) 1 applic TP BID [facility] Last Admin: 03/06/17 10:04 Dose: 1 applic Multivitamins/Minerals/Vitamin C (Tab-A-Vit -) 1 tab PO DAILY [facility] Last Admin: 03/06/17 13:05 Dose: 1 tab Vortioxetine ( Trintellix) 10 Mg Tablet (Pt's Own) 1 each PO DAILY@0800 [facility] Last Admin: 03/06/17 13:21 Dose: 1 each Nystatin (Nystatin Oral Suspension -) 500,000 units PO Q6HPO [facility] Last Admin: 03/06/17 13:07 Dose: 500,000 units Ondansetron HCl (Zofran Injection) 4 mg IVPB Q6H PRN PRN Reason: NAUSEA Last Admin: 03/02/17 07:12 Dose: 4 mg Pancrelipase (Creon Dr 6,000 Units Capsule) 3 cap PO TIDCM [facility] Last Admin: 03/06/17 12:43 Dose: 3 cap Pantoprazole Sodium (Protonix -) 40 mg PO DAILY [facility] Last Admin: 03/06/17 15:38 Dose: Not Given Piperacillin Sod/Tazobactam Sod (Zosyn 3.375gm Ivpb (Pre-Docked)) 3.375 gm IVPB Q8H-IV [facility] PRN Reason: Protocol Last Admin: 03/06/17 10:01 Dose: 3.375 gm Roflumilast (Daliresp -) 500 mcg PO DAILY [facility] Last Admin: 03/06/17 13:01 Dose: 500 mcg Sodium Chloride ([place]al [place] -) 2 spray NS TID PRN PRN Reason: NASAL CONGESTION Gen: intubated, sedated Heart: tachycardic, regular Lung: bilateral rhonchi, wheezes Abd: soft, nontender Ext: + edema Laboratory Results - last 24 hr 03/05/17 03/05/17 03/06/17 17:24 22:41 05:15 WBC 7.7 RBC 2.68 L Hgb 7.2 L D Hct 21.4 L D MCV 79.9 L MCHC 33.8 RDW 17.4 H Plt Count 191 D MPV 9.4 Neutrophils % 92.7 H Lymphocytes % 3.8 L D Monocytes % 3.2 L Eosinophils % 0.0 Basophils % 0.3 Sodium Potassium Chloride Carbon Dioxide Anion Gap BUN Creatinine Creat Clearance w eGFR POC Glucometer 127.01101 91.58033 Random Glucose Calcium Magnesium Total Bilirubin AST ALT Alkaline Phosphatase Total Protein Albumin 03/06/17 05:15 WBC RBC Hgb Hct MCV MCHC RDW Plt Count MPV Neutrophils % Lymphocytes % Monocytes % Eosinophils % Basophils % Sodium 144 Potassium 3.2 L Chloride 104 Carbon Dioxide 31 Anion Gap 9 BUN 17 Creatinine 0.4 L Creat Clearance w eGFR > 60 POC Glucometer Random Glucose 109 H D Calcium 7.2 L Magnesium 2.4 Total Bilirubin 0.6 AST 21 D ALT 153 H Alkaline Phosphatase 77 Total Protein 5.0 L Albumin 2.0 L Problem List - Problems (1) Acute exacerbation of COPD with asthma Code(s): J44.1 - CHRONIC OBSTRUCTIVE PULMONARY DISEASE W (ACUTE) EXACERBATION J45.901 - UNSPECIFIED ASTHMA WITH (ACUTE) EXACERBATION (2) Bronchitis Code(s): J40 - BRONCHITIS, NOT SPECIFIED ACUTE OR CHRONIC (3) Diarrhea in adult patient Code(s): R19.7 - DIARRHEA, UNSPECIFIED (4) Anxiety Code(s): F41.9 - ANXIETY DISORDER, UNSPECIFIED (5) Bipolar 2 disorder Code(s): F31.81 - BIPOLAR II DISORDER (6) COPD (chronic obstructive pulmonary disease) case management patient Code(s): [id number] - (7) Chronic back pain Code(s): M54.9 - DORSALGIA, UNSPECIFIED G89.29 - OTHER CHRONIC PAIN (8) Depression with anxiety Code(s): F41.8 - OTHER SPECIFIED ANXIETY DISORDERS (9) Gastritis Code(s): K29.70 - GASTRITIS, UNSPECIFIED, WITHOUT BLEEDING (10) HTN (hypertension) Code(s): I10 - ESSENTIAL (PRIMARY) HYPERTENSION Qualifiers: (11) Hyperlipidemia Code(s): E78.5 - HYPERLIPIDEMIA, UNSPECIFIED (12) Opioid dependence Code(s): F11.20 - OPIOID DEPENDENCE, UNCOMPLICATED (13) Paroxysmal atrial fibrillation Code(s): I48.0 - PAROXYSMAL ATRIAL FIBRILLATION (14) Afib Code(s): I48.91 - UNSPECIFIED ATRIAL FIBRILLATION (15) Anemia Code(s): D64.9 - ANEMIA, UNSPECIFIED (16) GERD (gastroesophageal reflux disease) Code(s): K21.9 - GASTRO-ESOPHAGEAL REFLUX DISEASE WITHOUT ESOPHAGITIS (17) Hemoptysis Code(s): R04.2 - HEMOPTYSIS (18) Leukocytosis Code(s): D72.829 - ELEVATED WHITE BLOOD CELL COUNT, UNSPECIFIED Qualifiers: Leukocytosis type: unspecified Qualified Code(s): D72.829 - Elevated white blood cell count, unspecified (19) Mood disorder Code(s): F39 - UNSPECIFIED MOOD [AFFECTIVE] DISORDER (20) Neuropathy Code(s): G62.9 - POLYNEUROPATHY, UNSPECIFIED ASSESSMENT AND PLAN: Acute on Chronic Hypoxic and Hypercapneic Respiratory Failure Acute COPD/Asthma Exacerbation r/o Pneumonia Atrial Fibrillation HTN Chronic Pain Syndrome/Opiate Dependent - Sedate - continue empiric antibiotics - Change to Decadron - inhaled bronchodilators standing and PRN - titrate FiO2 to keep SpO2 >90% - rate control - DVT/GI prophylaxis - May need repeat Tracheostomy - continue ICU monitoring Dr Castaneda CCT : 35 " time spent reviewing chart, evaluating patient and formulating plan Problem List - Problems (1) Acute exacerbation of COPD with asthma Code(s): J44.1 - CHRONIC OBSTRUCTIVE PULMONARY DISEASE W (ACUTE) EXACERBATION J45.901 - UNSPECIFIED ASTHMA WITH (ACUTE) EXACERBATION (2) Bronchitis Code(s): J40 - BRONCHITIS, NOT SPECIFIED ACUTE OR CHRONIC (3) Diarrhea in adult patient Code(s): R19.7 - DIARRHEA, UNSPECIFIED (4) Anxiety Code(s): F41.9 - ANXIETY DISORDER, UNSPECIFIED (5) Bipolar 2 disorder Code(s): F31.81 - BIPOLAR II DISORDER (6) COPD (chronic obstructive pulmonary disease) case management patient Code(s): [id number] - (7) Chronic back pain Code(s): M54.9 - DORSALGIA, UNSPECIFIED G89.29 - OTHER CHRONIC PAIN (8) Depression with anxiety Code(s): F41.8 - OTHER SPECIFIED ANXIETY DISORDERS (9) Gastritis Code(s): K29.70 - GASTRITIS, UNSPECIFIED, WITHOUT BLEEDING (10) HTN (hypertension) Code(s): I10 - ESSENTIAL (PRIMARY) HYPERTENSION Qualifiers: (11) Hyperlipidemia Code(s): E78.5 - HYPERLIPIDEMIA, UNSPECIFIED (12) Opioid dependence Code(s): F11.20 - OPIOID DEPENDENCE, UNCOMPLICATED (13) Paroxysmal atrial fibrillation Code(s): I48.0 - PAROXYSMAL ATRIAL FIBRILLATION (14) Afib Code(s): I48.91 - UNSPECIFIED ATRIAL FIBRILLATION (15) Anemia Code(s): D64.9 - ANEMIA, UNSPECIFIED (16) GERD (gastroesophageal reflux disease) Code(s): K21.9 - GASTRO-ESOPHAGEAL REFLUX DISEASE WITHOUT ESOPHAGITIS (17) Hemoptysis Code(s): R04.2 - HEMOPTYSIS (18) Leukocytosis Code(s): D72.829 - ELEVATED WHITE BLOOD CELL COUNT, UNSPECIFIED Qualifiers: Leukocytosis type: unspecified Qualified Code(s): D72.829 - Elevated white blood cell count, unspecified (19) Mood disorder Code(s): F39 - UNSPECIFIED MOOD [AFFECTIVE] DISORDER (20) Neuropathy Code(s): G62.9 - POLYNEUROPATHY, UNSPECIFIED
[2017-03-06] MEDS ORDERED: PROPOFOL 100 ML ONE (16:04)
--- NOTE | 2017-03-06 18:13 | PN ---
Physical Exam: SUBJECTIVE: Patient seen and examined. Remains intubate, DNR revoked, remains full code Events: - Failed leak test - Changed central line to [facility] OBJECTIVE: Vital Signs Period Temp Pulse Resp BP Sys/Dan Pulse Ox Last 24 Hr 97.2 F-99 F 66-117 12-28 93-148/68-90 PE Neuro: intubated, sedation Pulm: diffuse bilateral rhonchi, no wheezing, + MV CV: s1 s2 rrr no mrg Abd: s nt mild distention + bs : patterson clear yellow urine Ext: warm no le edema Laboratory Results - last 24 hr 03/05/17 03/06/17 03/06/17 22:41 05:15 05:15 WBC 7.7 RBC 2.68 L Hgb 7.2 L D Hct 21.4 L D MCV 79.9 L MCHC 33.8 RDW 17.4 H Plt Count 191 D MPV 9.4 Neutrophils % 92.7 H Lymphocytes % 3.8 L D Monocytes % 3.2 L Eosinophils % 0.0 Basophils % 0.3 Sodium 144 Potassium 3.2 L Chloride 104 Carbon Dioxide 31 Anion Gap 9 BUN 17 Creatinine 0.4 L Creat Clearance w eGFR > 60 POC Glucometer 91.12326 Random Glucose 109 H D Calcium 7.2 L Magnesium 2.4 Total Bilirubin 0.6 AST 21 D ALT 153 H Alkaline Phosphatase 77 Total Protein 5.0 L Albumin 2.0 L Active Medications Generic Name Dose Route Start Last Admin Trade Name Freq PRN Reason Stop Dose Admin Acetaminophen 1,000 mg 02/26/17 20:20 Tylenol - PO Q6H PRN PAIN Acetylcysteine 200 mg 02/25/17 18:00 03/06/17 11:49 Mucomyst 20 Oral / Inh Use Only* NEB 200 mg QIDR [facility] Administration Albuterol Sulfate 1 amp 03/02/17 16:34 03/06/17 06:20 Ventolin 0.083% Nebulizer Soln - NEB 1 amp Q2H PRN Administration SHORT OF BREATH/WHEEZING Albuterol/Ipratropium 1 amp 03/03/17 06:00 03/06/17 11:50 Duoneb - NEB 1 amp QIDR [facility] Administration Alprazolam 0.25 mg 03/04/17 21:36 Xanax - PO Q8H PRN ANXIETY Baclofen 20 mg 02/23/17 14:00 03/06/17 13:17 Lioresal - PO 20 mg TID [facility] Administration Budesonide/Formoterol Fumarate 2 puff 02/23/17 10:00 03/06/17 13:09 Symbicort 160/4.5mcg - IH Not Given BID [facility] Cholecalciferol 2,000 unit 02/24/17 10:00 03/06/17 12:59 Vitamin D3 - PO 2,000 unit DAILY [facility] Administration Dexamethasone Sodium Phosphate 8 mg 03/06/17 11:15 03/06/17 17:14 Decadron Injection - IVPUSH 8 mg Q8H-IV [facility] Administration Diltiazem HCl 60 mg 03/03/17 18:00 03/06/17 17:14 Cardizem - PO 60 mg Q6HPO [facility] Administration Diphenhydramine HCl 25 mg 02/23/17 17:32 Benadryl Oral Solution - PO Q4H PRN FOR ITCHING Docusate Sodium 100 mg 02/26/17 20:19 02/26/17 21:49 Colace - PO 100 mg BID PRN Administration CONSTIPATION Doxepin HCl 25 mg 02/23/17 22:00 03/05/17 23:26 Sinequan - PO 25 mg HS [facility] Administration Eletriptan 40 mg 02/24/17 10:38 03/02/17 10:54 Relpax - PO 40 mg Q6H PRN Administration HEADACHE Gabapentin 300 mg 02/23/17 14:00 03/06/17 13:23 Neurontin - PO Not Given TID [facility] Guaifenesin 600 mg 02/26/17 22:00 03/06/17 13:06 Mucinex - PO 600 mg BID [facility] Administration Guaifenesin 10 ml 02/26/17 17:39 02/28/17 05:52 Robitussin - PO 10 ml Q6H PRN Administration COUGH Heparin Sodium (Porcine) 5,000 unit 02/23/17 22:00 03/06/17 13:11 Heparin - SQ 5,000 unit TID [facility] Administration Hydromorphone HCl 1 mg 02/26/17 20:16 03/05/17 03:55 Dilaudid Injection - IVPB 1 mg Q4H PRN Administration PAIN Sodium Chloride 1,000 mls @ 75 mls/hr 03/05/17 08:30 04/14/17 10:00 Normal Saline - IV 75 mls/hr ASDIR [facility] Administration Propofol 100 mls @ 1.818 mls/hr 03/05/17 09:00 03/06/17 09:10 Diprivan - IVPB 21 mls/hr TITR [facility] Administration Protocol 5 MCG/KG/MIN Fentanyl 500 mcg/ Dextrose 100 mls @ 5 mls/hr 03/05/17 09:00 03/06/17 09:00 IJ 5 mls/hr TITR [facility] Administration 25 MCG/HR Insulin Aspart 1 vial 03/03/17 11:00 03/06/17 17:10 Novolog Vial Sliding Scale - SQ Not Given ACHS [facility] Protocol Insulin Detemir 5 units 03/05/17 16:30 03/06/17 17:10 Levemir Vial SQ 5 units BIDI [facility] Administration Levothyroxine Sodium 25 mcg 02/23/17 10:00 03/06/17 06:05 Synthroid - PO 25 mcg DAILY@0700 [facility] Administration Lidocaine 1 patch 03/04/17 10:00 03/06/17 10:04 Lidoderm Patch - TP 1 patch DAILY [facility] Administration Metoprolol Tartrate 25 mg 03/03/17 14:00 03/06/17 13:05 Lopressor - PO Not Given TID [facility] Mometasone Furoate 2 puff 03/02/17 16:45 03/06/17 12:50 Asmanex 220mcg - IH Not Given DAILY [facility] Multi-Ingredient Ointment 1 applic 02/24/17 10:30 03/06/17 10:04 Zinc Oxide TP 1 applic BID [facility] Administration Multivitamins/Minerals/Vitamin C 1 tab 02/23/17 10:00 03/06/17 13:05 Tab-A-Vit - PO 1 tab DAILY [facility] Administration Vortioxetine ( 1 each 02/25/17 08:00 03/06/17 13:21 Trintellix) 10 Mg PO 1 each Tablet (Pt's Own) DAILY@0800 [facility] Administration Nystatin 500,000 units 02/27/17 18:00 03/06/17 17:15 Nystatin Oral Suspension - PO 500,000 units Q6HPO [facility] Administration Ondansetron HCl 4 mg 02/23/17 08:18 03/02/17 07:12 Zofran Injection IVPB 4 mg Q6H PRN Administration NAUSEA Pancrelipase 3 cap 02/24/17 12:00 03/06/17 16:35 Creon 6,000 Units Capsule PO 3 cap TIDCM [facility] Administration Pantoprazole Sodium 40 mg 02/24/17 11:30 03/06/17 15:38 Protonix - PO Not Given DAILY [facility] Piperacillin Sod/Tazobactam Sod 3.375 gm 03/03/17 12:30 03/06/17 17:14 Zosyn 3.375gm Ivpb (Pre-Docked) IVPB 3.375 gm Q8H-IV [facility] Administration Protocol Roflumilast 500 mcg 02/23/17 10:00 03/06/17 13:01 Daliresp - PO 500 mcg DAILY [facility] Administration Sodium Chloride 2 spray 03/04/17 14:00 [place] Nasal [place] - NS TID PRN NASAL CONGESTION Assessment: 51 year old female pmhx of COPD on home O2, previous trach, Afib, HTN, anxiety, bipolar disorder and depression admitted to hospital with bronchitis and diarrhea, transferred to ICU s/p hypercarbic respiratory arrest, extubated 03/04, re intubated 03/05. Plan: 1. Acute on chroinc hypoxic and hypercapnic Respiratory Failure - Maintain vent support - Stop versed with vent support - Leak test proved no air, concern for airway edema - Started dexamethasone 8mg q8hr - Mucomyst with albuterol - Duonebs [facility] 2. Acute COPD/Asthma exacerbation - On decadron as above - Continue Roflumilast - Symbicort BID 3. HCAP coverage d/t pseudomonas - WBC improving - Emperic zosyn (day 4) - Vanco s/p 4 days 4. Anemia - Monitor hgb - Consider transfusion hgb <7 5. AFIB - In sinus - Continue Cardizem 60mg q6 6. HTN - Lopressor 25mg TID 7. Transaminitis - Likely due to arrest - Down trending; will monitor 8. DM II - Levemir 5 BID - ISS, BGM ACHS 9. Hypothroidism - Synthroid 25mg daily 10. Anxiety, depression, chronic pain - Cont standing anti depressants - Cont neurontin and baclofen for chronic pain - Caution with narcotic use low threshold for co2 retention s/p extubation 11. Nutrition - NS @75cc/hr - Resume osmolite via OG tube 12. Hypokalemia - Replete potassium w/ Po and IV Visit type - Emergency Visit Emergency Visit: Yes ED Registration Date: 02/24/17 Care time: The patient presented to the Emergency Department on the above date and was hospitalized for further evaluation of their emergent condition. - New Patient This patient is new to me today: No - Critical Care Critical Care patient: No
[2017-03-06] MEDS: DOXEPIN HCL 25 MG CAPSULE PO SCH (23:55)
[2017-03-07] MEDS: NYSTATIN 500,000 UNITS/5 ML SUSPENSION PO SCH ×4 (02:42→17:29)
[2017-03-07] MEDS: DEXAMETHASONE SOD PHOSPHATE 10 MG/1 ML VIAL IVPUSH SCH ×3 (02:43→17:27)
[2017-03-07] MEDS: PIPERACILLIN/TAZOB 3.375 GM/50 ML PRE-DOCKED IVPB SCH ×3 (02:43→17:47)
[2017-03-07] MEDS ORDERED: PROPOFOL 100 ML ONE (04:50)
[2017-03-07 06:29] LABS: BASOPHIL 0.2 % (0-2.0); MCH 26.8 pg (25.7-33.7); MCHC 33.1 g/dl (32.0-36.0); MEAN CELL VOLUME 80.8 fl (80-96); MEAN PLT VOLUME 9.1 fl (7.5-11.1); NEUTROPHILS 92.5 % (42.8-82.8); PLATELET COUNT 188 K/MM3 (134-434); RDW 17.8 % (11.6-15.6); WHITE BLOOD COUNT 5.2 K/mm3 (4.0-10.0)
[2017-03-07] MEDS: HEPARIN NA (PORCINE) 5,000 UNITS/ML 1ML VIAL SQ SCH ×3 (06:29→21:43)
[2017-03-07] MEDS: METOPROLOL TARTRATE 25 MG TABLET (FP) PO SCH ×3 (06:30→21:43)
[2017-03-07] MEDS: ALBUTEROL SO4 0.083% IH SOL 2.5 MG/3 ML VIAL.NEB. NEB PRN (06:30)
[2017-03-07] MEDS: GABAPENTIN 300 MG CAPSULE (FP) PO SCH ×3 (06:30→21:44)
[2017-03-07] MEDS: LEVOTHYROXINE NA 25 MCG TABLET (FP) PO SCH (06:30)
[2017-03-07] MEDS: ALBUTEROL SO4 2.5/IPRATROPIUM 0.5 INH SOL 3 ML VIAL.NEB. NEB SCH ×4 (06:30→23:32)
[2017-03-07] MEDS: BACLOFEN 10 MG TABLET (FP) PO SCH ×3 (06:30→21:43)
[2017-03-07] MEDS: ACETYLCYSTEINE 20% 200MG/ML 4 ML VIAL *FOR ORAL / INH USE ONLY NEB SCH ×4 (06:30→23:32)
[2017-03-07] MEDS: dilTIAZem HCL 60 MG TABLET (FP) PO SCH ×4 (06:30→23:31)
[2017-03-07 06:52] LABS: CALCIUM 7.5 mg/dL (8.5-10.1)
[2017-03-07 06:53] LABS: CREATININE 0.4 mg/dL (0.55-1.02)
[2017-03-07 07:02] LABS: COCKROFT - GAULT 161.415
--- NOTE | 2017-03-07 07:24 | PN ---
Progress Note, Physician Chief Complaint: ID Remains intubated zosyn day 5 Rx - Current Medication List Current Medications: Active Medications Acetaminophen (Tylenol -) 1,000 mg PO Q6H PRN PRN Reason: PAIN Acetylcysteine (Mucomyst 20 Oral / Inh Use Only*) 200 mg NEB QIDR [facility] Last Admin: 03/07/17 06:30 Dose: 200 mg Albuterol Sulfate (Ventolin 0.083% Nebulizer Soln -) 1 amp NEB Q2H PRN PRN Reason: SHORT OF BREATH/WHEEZING Last Admin: 03/07/17 06:30 Dose: 1 amp Albuterol/Ipratropium (Duoneb -) 1 amp NEB QIDR [facility] Last Admin: 03/07/17 06:30 Dose: Not Given Alprazolam (Xanax -) 0.25 mg PO Q8H PRN PRN Reason: ANXIETY Last Admin: 03/06/17 23:01 Dose: 0.25 mg Baclofen (Lioresal -) 20 mg PO TID [facility] Last Admin: 03/07/17 06:30 Dose: 20 mg Budesonide/Formoterol Fumarate (Symbicort 160/4.5mcg -) 2 puff IH BID [facility] Last Admin: 03/06/17 23:55 Dose: Not Given Cholecalciferol (Vitamin D3 -) 2,000 unit PO DAILY [facility] Last Admin: 03/06/17 12:59 Dose: 2,000 unit Dexamethasone Sodium Phosphate (Decadron Injection -) 8 mg IVPUSH Q8H-IV [facility] Last Admin: 03/07/17 02:43 Dose: 8 mg Diltiazem HCl (Cardizem -) 60 mg PO Q6HPO [facility] Last Admin: 03/07/17 06:30 Dose: Not Given Diphenhydramine HCl (Benadryl Oral Solution -) 25 mg PO Q4H PRN PRN Reason: FOR ITCHING Docusate Sodium (Colace -) 100 mg PO BID PRN PRN Reason: CONSTIPATION Last Admin: 02/26/17 21:49 Dose: 100 mg Doxepin HCl (Sinequan -) 25 mg PO HS [facility] Last Admin: 03/06/17 23:55 Dose: 25 mg Eletriptan (Relpax -) 40 mg PO Q6H PRN PRN Reason: HEADACHE Last Admin: 03/02/17 10:54 Dose: 40 mg Gabapentin (Neurontin -) 300 mg PO TID [facility] Last Admin: 03/07/17 06:30 Dose: 300 mg Guaifenesin (Mucinex -) 600 mg PO BID [facility] Last Admin: 03/06/17 23:03 Dose: 600 mg Guaifenesin (Robitussin -) 10 ml PO Q6H PRN PRN Reason: COUGH Last Admin: 02/28/17 05:52 Dose: 10 ml Heparin Sodium (Porcine) (Heparin -) 5,000 unit SQ TID [facility] Last Admin: 03/07/17 06:29 Dose: 5,000 unit Sodium Chloride (Normal Saline -) 1,000 mls @ 75 mls/hr IV ASDIR [facility] Last Admin: 03/06/17 10:00 Dose: 75 mls/hr Propofol (Diprivan -) 100 mls @ 1.818 mls/hr IVPB TITR [facility]; 5 MCG/KG/MIN PRN Reason: Protocol Last Admin: 03/06/17 21:54 Dose: 21 mls/hr Fentanyl 500 mcg/ Dextrose 100 mls @ 5 mls/hr IJ TITR [facility] PRN Reason: 25 MCG/HR Last Admin: 03/06/17 23:54 Dose: 10 mls/hr Insulin Aspart (Novolog Vial Sliding Scale -) 1 vial SQ ACHS [facility] PRN Reason: Protocol Last Admin: 03/06/17 23:41 Dose: 4 units Insulin Detemir (Levemir Vial) 5 units SQ BIDI [facility] Last Admin: 03/06/17 17:10 Dose: 5 units Levothyroxine Sodium (Synthroid -) 25 mcg PO DAILY@0700 [facility] Last Admin: 03/07/17 06:30 Dose: 25 mcg Lidocaine (Lidoderm Patch -) 1 patch TP DAILY [facility] Last Admin: 03/06/17 10:04 Dose: 1 patch Metoprolol Tartrate (Lopressor -) 25 mg PO TID [facility] Last Admin: 03/07/17 06:30 Dose: Not Given Mometasone Furoate (Asmanex 220mcg -) 2 puff IH DAILY [facility] Last Admin: 03/06/17 12:50 Dose: Not Given Multi-Ingredient Ointment (Zinc Oxide) 1 applic TP BID [facility] Last Admin: 03/06/17 23:04 Dose: 1 applic Multivitamins/Minerals/Vitamin C (Tab-A-Vit -) 1 tab PO DAILY [facility] Last Admin: 03/06/17 13:05 Dose: 1 tab Vortioxetine ( Trintellix) 10 Mg Tablet (Pt's Own) 1 each PO DAILY@0800 [facility] Last Admin: 03/06/17 13:21 Dose: 1 each Nystatin (Nystatin Oral Suspension -) 500,000 units PO Q6HPO [facility] Last Admin: 03/07/17 06:31 Dose: 500,000 units Ondansetron HCl (Zofran Injection) 4 mg IVPB Q6H PRN PRN Reason: NAUSEA Last Admin: 03/02/17 07:12 Dose: 4 mg Pancrelipase (Creon Dr 6,000 Units Capsule) 3 cap PO TIDCM [facility] Last Admin: 03/06/17 16:35 Dose: 3 cap Pantoprazole Sodium (Protonix -) 40 mg PO DAILY [facility] Last Admin: 03/06/17 15:38 Dose: Not Given Piperacillin Sod/Tazobactam Sod (Zosyn 3.375gm Ivpb (Pre-Docked)) 3.375 gm IVPB Q8H-IV [facility] PRN Reason: Protocol Last Admin: 03/07/17 02:43 Dose: 3.375 gm Roflumilast (Daliresp -) 500 mcg PO DAILY [facility] Last Admin: 03/06/17 13:01 Dose: 500 mcg Sodium Chloride ([place]al [place] -) 2 spray NS TID PRN PRN Reason: NASAL CONGESTION - Objective Vital Signs: Vital Signs Temperature 97 F L 03/07/17 06:00 Pulse Rate 49 L 03/07/17 06:00 Respiratory Rate 14 03/07/17 06:00 Blood Pressure 139/71 03/07/17 06:00 O2 Sat by Pulse Oximetry (%) 100 03/06/17 22:00 Cardiovascular: Yes: Regular Rate and Rhythm, S1, S2 Respiratory: Yes: WNL, Regular, CTA Bilaterally, Rhonchi Gastrointestinal: Yes: Soft. No: Tenderness Edema: Yes Labs: CBC, BMP 03/07/17 06:05 03/07/17 06:05 INR, PTT INR 1.04 (0.82-1.09) 03/03/17 05:30 Problem List - Problems (1) Acute exacerbation of COPD with asthma Code(s): J44.1 - CHRONIC OBSTRUCTIVE PULMONARY DISEASE W (ACUTE) EXACERBATION J45.901 - UNSPECIFIED ASTHMA WITH (ACUTE) EXACERBATION (2) Acute hypercapnic respiratory failure Code(s): J96.02 - ACUTE RESPIRATORY FAILURE WITH HYPERCAPNIA (3) Pneumonia due to Pseudomonas Code(s): J15.1 - PNEUMONIA DUE TO PSEUDOMONAS Assessment/Plan Microbiology 03/03/17 00:05 Sputum - Endotrachea Suction/Ventilator Gram Stain - Final 03/03/17 00:05 Sputum - Endotrachea Suction/Ventilator Sputum Culture - Final Pseudomonas Aeruginosa Yeast Like Organism 03/02/17 23:55 Blood - Peripheral Venous Blood Culture - Preliminary NO GROWTH OBTAINED AFTER 96 HOURS, INCUBATION TO CONTINUE FOR 1 DAYS. 03/02/17 23:55 Blood - Peripheral Venous Blood Culture - Preliminary NO GROWTH OBTAINED AFTER 96 HOURS, INCUBATION TO CONTINUE FOR 1 DAYS. Laboratory Tests 03/07/17 03/07/17 06:05 06:05 RBC 2.70 L Hgb 7.2 L Plt Count 188 BUN 22 H D Creatinine 0.4 L Assessment Respiratory failure Possible Pneumonia COPD Plan Committed to another 48hours 7 days of treatment. Will put in stop order Martha WRIGHT
[2017-03-07] MEDS: INSULIN DETEMIR 100 UNITS/ML MDV SQ SCH ×2 (07:38→17:26)
[2017-03-07] MEDS: INSULIN SLIDING SCALE (NOVOLOG) 1 VIAL SQ SCH ×4 (07:38→22:25)
[2017-03-07 07:48] LABS: ARTERIAL BLD GAS O2 SATURATION 99.2 % (90-98.9); ARTERIAL BLOOD GAS BASE EXCESS -0.1 meq/l (-2-2); ARTERIAL BLOOD GAS HCO3 24.7 meq/L (22-26); ARTERIAL BLOOD GAS pH 7.37 (7.35-7.45)
[2017-03-07 07:49] LABS: ALLENS TEST POSITIVE; ART PUNCT SITE RIGHT RADIAL; LPM/O2% 40; MECH. VENT. Y; PT. ON O2? YES; TYPE OF O2 MECH VENT; VENT RATE 12; VT/PRESS 350
[2017-03-07] MEDS: LIPASE/PROTEASE/AMYLASE 6,000 UNIT CAPSULE PO SCH ×3 (08:00→17:27)
--- NOTE | 2017-03-07 08:53 | PN ---
Physical Exam: SUBJECTIVE: Patient seen and examined OBJECTIVE: Vital Signs Period Temp Pulse Resp BP Sys/Dan Pulse Ox Last 24 Hr 97 F-98 F 48-90 12-27 93-139/63-72 100 GENERAL: The patient is intubated, sedated. HEAD: Normal with no signs of trauma. LUNGS: Scattered rhonchi, wheezes HEART: Regular rate and rhythm, S1, S2 without murmur, rub or gallop. ABDOMEN: Soft, nontender, nondistended UPPER EXTREMITIES: 1+ bilateral edema LOWER EXTREMITIES: no edema. Laboratory Results - last 24 hr 03/06/17 03/06/17 03/06/17 05:15 06:02 13:47 WBC RBC Hgb Hct MCV MCHC RDW Plt Count MPV Neutrophils % Lymphocytes % Monocytes % Eosinophils % Basophils % Puncture Site ABG pH ABG pCO2 at Pt Temp ABG pO2 at Pt Temp ABG HCO3 ABG O2 Sat (Measured) ABG O2 Content ABG Base Excess Francis Test O2 Delivery Device Oxygen Flow Rate Vent Mode Vent Rate Mechanical Rate PEEP Pressure Support Vent Sodium Potassium Chloride Carbon Dioxide Anion Gap BUN Creatinine POC Glucometer 115.73514 94.67503 Random Glucose Calcium Magnesium 2.4 03/06/17 03/06/17 03/07/17 17:03 23:32 06:05 WBC 5.2 D RBC 2.70 L Hgb 7.2 L Hct 21.8 L MCV 80.8 MCHC 33.1 RDW 17.8 H Plt Count 188 MPV 9.1 Neutrophils % 92.5 H Lymphocytes % 4.2 L Monocytes % 3.1 L Eosinophils % 0.0 Basophils % 0.2 Puncture Site ABG pH ABG pCO2 at Pt Temp ABG pO2 at Pt Temp ABG HCO3 ABG O2 Sat (Measured) ABG O2 Content ABG Base Excess Francis Test O2 Delivery Device Oxygen Flow Rate Vent Mode Vent Rate Mechanical Rate PEEP Pressure Support Vent Sodium Potassium Chloride Carbon Dioxide Anion Gap BUN Creatinine POC Glucometer 103.35163 211.23197 Random Glucose Calcium Magnesium 03/07/17 03/07/17 03/07/17 06:05 06:44 07:15 WBC RBC Hgb Hct MCV MCHC RDW Plt Count MPV Neutrophils % Lymphocytes % Monocytes % Eosinophils % Basophils % Puncture Site Right radial ABG pH 7.37 ABG pCO2 at Pt Temp 43.6 ABG pO2 at Pt Temp 171.0 H* ABG HCO3 24.7 ABG O2 Sat (Measured) 99.2 H ABG O2 Content 13.0 L ABG Base Excess -0.1 Francis Test Positive O2 Delivery Device Mech vent Oxygen Flow Rate 40 Vent Mode Ac Vent Rate 12 Mechanical Rate Y PEEP 5.0 Pressure Support Vent 350 Sodium 141 Potassium 3.9 D Chloride 105 Carbon Dioxide 28 Anion Gap 8 BUN 22 H D Creatinine 0.4 L POC Glucometer 181.16368 Random Glucose 171 H D Calcium 7.5 L Magnesium Active Medications Generic Name Dose Route Start Last Admin Trade Name Freq PRN Reason Stop Dose Admin Acetaminophen 1,000 mg 02/26/17 20:20 Tylenol - PO Q6H PRN PAIN Acetylcysteine 200 mg 02/25/17 18:00 03/07/17 06:30 Mucomyst 20 Oral / Inh Use Only* NEB 200 mg QIDR EMMY Administration Albuterol Sulfate 1 amp 03/02/17 16:34 03/07/17 06:30 Ventolin 0.083% Nebulizer Soln - NEB 1 amp Q2H PRN Administration SHORT OF BREATH/WHEEZING Albuterol/Ipratropium 1 amp 03/03/17 06:00 03/07/17 06:30 Duoneb - NEB Not Given QIDR EMMY Alprazolam 0.25 mg 03/04/17 21:36 03/06/17 23:01 Xanax - PO 0.25 mg Q8H PRN Administration ANXIETY Baclofen 20 mg 02/23/17 14:00 03/07/17 06:30 Lioresal - PO 20 mg TID EMMY Administration Budesonide/Formoterol Fumarate 2 puff 02/23/17 10:00 03/06/17 23:55 Symbicort 160/4.5mcg - IH Not Given BID EMMY Cholecalciferol 2,000 unit 02/24/17 10:00 03/06/17 12:59 Vitamin D3 - PO 2,000 unit DAILY EMMY Administration Dexamethasone Sodium Phosphate 8 mg 03/06/17 11:15 03/07/17 02:43 Decadron Injection - IVPUSH 8 mg Q8H-IV EMMY Administration Diltiazem HCl 60 mg 03/03/17 18:00 03/07/17 06:30 Cardizem - PO Not Given Q6HPO EMMY Diphenhydramine HCl 25 mg 02/23/17 17:32 Benadryl Oral Solution - PO Q4H PRN FOR ITCHING Docusate Sodium 100 mg 02/26/17 20:19 02/26/17 21:49 Colace - PO 100 mg BID PRN Administration CONSTIPATION Doxepin HCl 25 mg 02/23/17 22:00 03/06/17 23:55 Sinequan - PO 25 mg HS EMMY Administration Eletriptan 40 mg 02/24/17 10:38 03/02/17 10:54 Relpax - PO 40 mg Q6H PRN Administration HEADACHE Gabapentin 300 mg 02/23/17 14:00 03/07/17 06:30 Neurontin - PO 300 mg TID EMMY Administration Guaifenesin 600 mg 02/26/17 22:00 03/06/17 23:03 Mucinex - PO 600 mg BID EMMY Administration Guaifenesin 10 ml 02/26/17 17:39 02/28/17 05:52 Robitussin - PO 10 ml Q6H PRN Administration COUGH Heparin Sodium (Porcine) 5,000 unit 02/23/17 22:00 03/07/17 06:29 Heparin - SQ 5,000 unit TID EMMY Administration Sodium Chloride 1,000 mls @ 75 mls/hr 03/05/17 08:30 03/06/17 10:00 Normal Saline - IV 75 mls/hr ASDIR EMMY Administration Propofol 100 mls @ 1.818 mls/hr 03/05/17 09:00 03/06/17 21:54 Diprivan - IVPB 21 mls/hr TITR EMMY Administration Protocol 5 MCG/KG/MIN Fentanyl 500 mcg/ Dextrose 100 mls @ 5 mls/hr 03/05/17 09:00 03/06/17 23:54 IJ 10 mls/hr TITR EMMY Administration 25 MCG/HR Insulin Aspart 1 vial 03/03/17 11:00 03/07/17 07:38 Novolog Vial Sliding Scale - SQ 2 units ACHS [facility] Administration Protocol Insulin Detemir 5 units 03/05/17 16:30 03/07/17 07:38 Levemir Vial SQ 5 units BIDI EMMY Administration Levothyroxine Sodium 25 mcg 02/23/17 10:00 03/07/17 06:30 Synthroid - PO 25 mcg DAILY@0700 EMMY Administration Lidocaine 1 patch 03/04/17 10:00 03/06/17 10:04 Lidoderm Patch - TP 1 patch DAILY EMMY Administration Metoprolol Tartrate 25 mg 03/03/17 14:00 03/07/17 06:30 Lopressor - PO Not Given TID EMMY Mometasone Furoate 2 puff 03/02/17 16:45 03/06/17 12:50 Asmanex 220mcg - IH Not Given DAILY EMMY Multi-Ingredient Ointment 1 applic 02/24/17 10:30 03/06/17 23:04 Zinc Oxide TP 1 applic BID EMMY Administration Multivitamins/Minerals/Vitamin C 1 tab 02/23/17 10:00 03/06/17 13:05 Tab-A-Vit - PO 1 tab DAILY EMMY Administration Vortioxetine ( 1 each 02/25/17 08:00 03/06/17 13:21 Trintellix) 10 Mg PO 1 each Tablet (Pt's Own) DAILY@0800 EMMY Administration Nystatin 500,000 units 02/27/17 18:00 03/07/17 06:31 Nystatin Oral Suspension - PO 500,000 units Q6HPO EMMY Administration Ondansetron HCl 4 mg 02/23/17 08:18 03/02/17 07:12 Zofran Injection IVPB 4 mg Q6H PRN Administration NAUSEA Pancrelipase 3 cap 02/24/17 12:00 03/06/17 16:[address] 6,000 Units Capsule PO 3 cap TIDCM EMMY Administration Pantoprazole Sodium 40 mg 02/24/17 11:30 03/06/17 15:38 Protonix - PO Not Given DAILY EMMY Piperacillin Sod/Tazobactam Sod 3.375 gm 03/03/17 12:30 03/07/17 02:43 Zosyn 3.375gm Ivpb (Pre-Docked) IVPB 03/09/17 11:00 3.375 gm Q8H-IV EMMY Administration Protocol Roflumilast 500 mcg 02/23/17 10:00 03/06/17 13:01 Daliresp - PO 500 mcg DAILY EMMY Administration Sodium Chloride 2 spray 03/04/17 14:00 [place] - NS TID PRN NASAL CONGESTION ASSESSMENT/PLAN 51 year-old female with a PMH of HTN, paroxysmal afib, NIDDM, asthma/COPD O2 dependent, previous tracheostomy (closed), uterine cancer, anxiety, depression, and bipolar disorder. Admitted with nausea, diarrhea, productive cough, and left sided body pain. Hospital course exacerbated by hypercarbic respiratory failure, intubated 03/02, extubated 03/04, reintubated 03/05. Acute on chroinc hypoxic and hypercapnic respiratory failure --on AC mode --leak test proved no air, concern for airway edema, continue dexamethasone --inhaled bronchodilators standing and PRN --titrate FiO2 to keep SpO2 >90%, Acute COPD/Asthma exacerbation --continue decadron, Roflumilast Pseudomonas pneumonia --afebrile, leukocytosis resolved --continue Zosyn (day #5, complete 7 days of treatment) --Vanco x 4 days of treatment Anemia h/o GI bleed --Hgb steadily dropping over past five days, 10.7-->7.2 --fluid balance over same period of time fluid positive 1.5L --stool occult ordered --will re-consult GI Paroxysmal afib --continue metoprolol and cardizem for rate control --[id number] score 3 ---not on anticoagulation secondary to a previous GI bleed Hypertension --continue metoprolol, cardizem Transaminitis --downtrending IDDM --Levemir 5mg BID --Novolog sliding scale coverage Hypothroidism --continue levothyroxine Anxiety, depression, chronic pain --continue psych meds that can be given through NG tube --caution with narcotic use low threshold for co2 retention s/p extubation Hypokalemia, resolved F/E/N Fluids/Nutrition: Osmolite 1.2 @ 20cc/hr, increase slowly as tolerated to 52cc/hr Electrolytes: replete as indicated DVT prophylaxis: no chemical prophylaxis due to Hgb 7.2 and h/o GI bleed; SCDs Dispo: continues to require ICU level care. Visit type - Emergency Visit Emergency Visit: Yes ED Registration Date: 02/24/17 Care time: The patient presented to the Emergency Department on the above date and was hospitalized for further evaluation of their emergent condition. - New Patient This patient is new to me today: No - Critical Care Critical Care patient: Yes Total Critical Care Time (in minutes): 40 Critical Care Statement: The care of this patient involved high complexity decision making to prevent further life threatening deterioration of the patient 's condition and/or to evalute & treat vital organ system(s) failure or risk of failure.
--- NOTE | 2017-03-07 09:14 | PN ---
Progress Note (short form) - Note Progress Note: PULMONARY/CCM Pt seen and examined in the ICU. Remains intubated, sedated. Vented on volume assist control, saturating well on 40% FiO2. No fevers recorded. Last Vital Signs Temp Pulse Resp BP Pulse Ox 97 F L 49 L 16 139/71 100 03/07/17 06:00 03/07/17 06:00 03/07/17 07:45 03/07/17 06:00 03/06/17 22:00 Intake & Output 03/04/17 03/05/17 03/06/17 03/07/17 23:59 23:59 23:59 23:59 Intake Total 2920.4 2530 3123.8 Output Total 3050 1700 2300 400 Balance -129.6 830 823.8 -400 Weight 140 lb 9.6 oz 133 lb 9.6 oz 128 lb 6 oz 132 lb 8 oz Gen: intubated, sedated Heart: RRR Lung: scattered rhonchi, wheezes Abd: soft, nontender Ext: UE edema CBC, BMP 03/07/17 06:05 03/07/17 06:05 ABG Results ABG pH 7.37 (7.35-7.45) 03/07/17 07:15 ABG pCO2 at Pt Temp 43.6 mmHg (35-45) 03/07/17 07:15 ABG pO2 at Pt Temp 171.0 mmHg (80-100) H* 03/07/17 07:15 ABG HCO3 24.7 meq/L (22-26) 03/07/17 07:15 ABG O2 Sat (Measured) 99.2 % (90-98.9) H 03/07/17 07:15 ABG O2 Content 13.0 % vol (15-22) L 03/07/17 07:15 ABG Base Excess -0.1 meq/l (-2-2) 03/07/17 07:15 Active Medications Acetaminophen (Tylenol -) 1,000 mg PO Q6H PRN PRN Reason: PAIN Acetylcysteine (Mucomyst 20 Oral / Inh Use Only*) 200 mg NEB QIDR EMMY Last Admin: 03/07/17 06:30 Dose: 200 mg Albuterol Sulfate (Ventolin 0.083% Nebulizer Soln -) 1 amp NEB Q2H PRN PRN Reason: SHORT OF BREATH/WHEEZING Last Admin: 03/07/17 06:30 Dose: 1 amp Albuterol/Ipratropium (Duoneb -) 1 amp NEB QIDR [facility] Last Admin: 03/07/17 06:30 Dose: Not Given Alprazolam (Xanax -) 0.25 mg PO Q8H PRN PRN Reason: ANXIETY Last Admin: 03/06/17 23:01 Dose: 0.25 mg Baclofen (Lioresal -) 20 mg PO TID [facility] Last Admin: 03/07/17 06:30 Dose: 20 mg Budesonide/Formoterol Fumarate (Symbicort 160/4.5mcg -) 2 puff IH BID [facility] Last Admin: 03/06/17 23:55 Dose: Not Given Cholecalciferol (Vitamin D3 -) 2,000 unit PO DAILY [facility] Last Admin: 03/06/17 12:59 Dose: 2,000 unit Dexamethasone Sodium Phosphate (Decadron Injection -) 8 mg IVPUSH Q8H-IV [facility] Last Admin: 03/07/17 02:43 Dose: 8 mg Diltiazem HCl (Cardizem -) 60 mg PO Q6HPO [facility] Last Admin: 03/07/17 06:30 Dose: Not Given Diphenhydramine HCl (Benadryl Oral Solution -) 25 mg PO Q4H PRN PRN Reason: FOR ITCHING Docusate Sodium (Colace -) 100 mg PO BID PRN PRN Reason: CONSTIPATION Last Admin: 02/26/17 21:49 Dose: 100 mg Doxepin HCl (Sinequan -) 25 mg PO HS [facility] Last Admin: 03/06/17 23:55 Dose: 25 mg Eletriptan (Relpax -) 40 mg PO Q6H PRN PRN Reason: HEADACHE Last Admin: 03/02/17 10:54 Dose: 40 mg Gabapentin (Neurontin -) 300 mg PO TID [facility] Last Admin: 03/07/17 06:30 Dose: 300 mg Guaifenesin (Mucinex -) 600 mg PO BID [facility] Last Admin: 03/06/17 23:03 Dose: 600 mg Guaifenesin (Robitussin -) 10 ml PO Q6H PRN PRN Reason: COUGH Last Admin: 02/28/17 05:52 Dose: 10 ml Heparin Sodium (Porcine) (Heparin -) 5,000 unit SQ TID [facility] Last Admin: 03/07/17 06:29 Dose: 5,000 unit Sodium Chloride (Normal Saline -) 1,000 mls @ 75 mls/hr IV ASDIR [facility] Last Admin: 03/06/17 10:00 Dose: 75 mls/hr Propofol (Diprivan -) 100 mls @ 1.818 mls/hr IVPB TITR EMMY; 5 MCG/KG/MIN PRN Reason: Protocol Last Admin: 03/06/17 21:54 Dose: 21 mls/hr Fentanyl 500 mcg/ Dextrose 100 mls @ 5 mls/hr IJ TITR EMMY PRN Reason: 25 MCG/HR Last Admin: 03/06/17 23:54 Dose: 10 mls/hr Insulin Aspart (Novolog Vial Sliding Scale -) 1 vial SQ ACHS [facility] PRN Reason: Protocol Last Admin: 03/07/17 07:38 Dose: 2 units Insulin Detemir (Levemir Vial) 5 units SQ BIDI [facility] Last Admin: 03/07/17 07:38 Dose: 5 units Levothyroxine Sodium (Synthroid -) 25 mcg PO DAILY@0700 [facility] Last Admin: 03/07/17 06:30 Dose: 25 mcg Lidocaine (Lidoderm Patch -) 1 patch TP DAILY [facility] Last Admin: 03/06/17 10:04 Dose: 1 patch Metoprolol Tartrate (Lopressor -) 25 mg PO TID [facility] Last Admin: 03/07/17 06:30 Dose: Not Given Mometasone Furoate (Asmanex 220mcg -) 2 puff IH DAILY [facility] Last Admin: 03/06/17 12:50 Dose: Not Given Multi-Ingredient Ointment (Zinc Oxide) 1 applic TP BID [facility] Last Admin: 03/06/17 23:04 Dose: 1 applic Multivitamins/Minerals/Vitamin C (Tab-A-Vit -) 1 tab PO DAILY [facility] Last Admin: 03/06/17 13:05 Dose: 1 tab Vortioxetine ( Trintellix) 10 Mg Tablet (Pt's Own) 1 each PO DAILY@0800 [facility] Last Admin: 03/06/17 13:21 Dose: 1 each Nystatin (Nystatin Oral Suspension -) 500,000 units PO Q6HPO [facility] Last Admin: 03/07/17 06:31 Dose: 500,000 units Ondansetron HCl (Zofran Injection) 4 mg IVPB Q6H PRN PRN Reason: NAUSEA Last Admin: 03/02/17 07:12 Dose: 4 mg Pancrelipase (Creon Dr 6,000 Units Capsule) 3 cap PO TIDCM EMMY Last Admin: 03/06/17 16:35 Dose: 3 cap Pantoprazole Sodium (Protonix -) 40 mg PO DAILY EMMY Last Admin: 03/06/17 15:38 Dose: Not Given Piperacillin Sod/Tazobactam Sod (Zosyn 3.375gm Ivpb (Pre-Docked)) 3.375 gm IVPB Q8H-IV EMMY PRN Reason: Protocol Stop: 03/09/17 11:00 Last Admin: 03/07/17 02:43 Dose: 3.375 gm Roflumilast (Daliresp -) 500 mcg PO DAILY EMMY Last Admin: 03/06/17 13:01 Dose: 500 mcg Sodium Chloride ([place] -) 2 spray NS TID PRN PRN Reason: NASAL CONGESTION A/P Acute on Chronic Hypoxic and Hypercapneic Respiratory Failure Acute COPD/Asthma Exacerbation r/o Pneumonia Atrial Fibrillation HTN Chronic Pain Syndrome/Opiate Dependent - continue empiric antibiotics - continue steroids at current dose - inhaled bronchodilators standing and PRN - monitor H/H - titrate FiO2 to keep SpO2 >90%, decreased to 35% - rate control - DVT/GI prophylaxis - continue ICU monitoring critical care time spent reviewing chart, evaluating patient and formulating plan 40 min
[2017-03-07] MEDS: CHOLECALCIFEROL (VITAMIN D3) 1,000 UNIT TABLET (FP) PO SCH (11:00)
[2017-03-07] MEDS: MULTIVITAMINS (DAILY MVI) TABLET (FP) PO SCH (11:01)
[2017-03-07] MEDS: guaiFENesin 600 MG TABLET.ER (FP) PO SCH ×2 (11:02→21:44)
[2017-03-07] MEDS: BUDESONIDE/FORMETEROL FUMARATE 160/4.5 mcg INHALER IH SCH ×2 (11:02→21:44)
[2017-03-07] MEDS: MOMETASONE FUROATE 220 MCG/IH INHALER IH SCH (11:03)
[2017-03-07] MEDS: PROPOFOL 100 ML IVPB SCH ×2 (11:04→17:29)
[2017-03-07] MEDS: SODIUM CHLORIDE 1,000 ML IV SCH (11:05)
[2017-03-07] MEDS: PANTOPRAZOLE 40 MG TABLET (FP) PO SCH (11:08)
[2017-03-07] MEDS ORDERED: PT OWN MED DRAWER 7, Y5N ONE ×3 (11:12→13:54)
[2017-03-07] MEDS: ROFLUMILAST 500 MCG TABLET PO SCH (11:17)
[2017-03-07] MEDS: LIDOCAINE 5% TOPICAL PATCH TP SCH (13:45)
[2017-03-07] MEDS: FENTANYL INJECTION 500 MCG in DEXTROSE 5%-WATER - 90 ML IJ SCH (13:46)
[2017-03-07] MEDS: ZINC OXIDE 20% TOPICAL OINTMENT 30 GM TUBE TP SCH ×2 (13:47→21:44)
[2017-03-07] MEDS: VORTIOXETINE 10 MG PO SCH (17:24)
[2017-03-07] MEDS: DOXEPIN HCL 25 MG CAPSULE PO SCH (21:44)
[2017-03-08] MEDS: DEXAMETHASONE SOD PHOSPHATE 10 MG/1 ML VIAL IVPUSH SCH ×3 (02:47→17:57)
[2017-03-08] MEDS: PIPERACILLIN/TAZOB 3.375 GM/50 ML PRE-DOCKED IVPB SCH ×3 (02:48→17:58)
[2017-03-08] MEDS: HEPARIN NA (PORCINE) 5,000 UNITS/ML 1ML VIAL SQ SCH ×3 (06:08→22:28)
[2017-03-08] MEDS: BACLOFEN 10 MG TABLET (FP) PO SCH ×3 (06:09→22:28)
[2017-03-08] MEDS: LEVOTHYROXINE NA 25 MCG TABLET (FP) PO SCH (06:09)
[2017-03-08] MEDS: GABAPENTIN 300 MG CAPSULE (FP) PO SCH ×3 (06:09→22:28)
[2017-03-08] MEDS: METOPROLOL TARTRATE 25 MG TABLET (FP) PO SCH ×3 (06:10→22:28)
[2017-03-08] MEDS: NYSTATIN 500,000 UNITS/5 ML SUSPENSION PO SCH ×4 (06:10→17:58)
[2017-03-08] MEDS: dilTIAZem HCL 60 MG TABLET (FP) PO SCH ×4 (06:10→23:34)
[2017-03-08] MEDS: INSULIN DETEMIR 100 UNITS/ML MDV SQ SCH ×2 (06:14→16:40)
[2017-03-08] MEDS: INSULIN SLIDING SCALE (NOVOLOG) 1 VIAL SQ SCH ×4 (06:14→22:29)
[2017-03-08 06:18] LABS: MCH 26.4 pg (25.7-33.7); MCHC 32.5 g/dl (32.0-36.0); MEAN CELL VOLUME 81.3 fl (80-96); RDW 17.9 % (11.6-15.6)
[2017-03-08 06:44] LABS: ALBUMIN 2.1 g/dl (3.4-5.0); ANION GAP 8 (8-16); CALCIUM 7.6 mg/dL (8.5-10.1); CO2 28 mmol/L (21-32); GLUCOSE,RANDOM 163 mg/dL (74-106); MAGNESIUM 2.6 mg/dL (1.8-2.4)
[2017-03-08 06:48] LABS: BILIRUBIN,TOTAL 0.4 mg/dL (0.2-1.0); COCKROFT - GAULT 164.9935; CREATININE 0.4 mg/dL (0.55-1.02); PHOSPHOROUS 3.6 mg/dL (2.5-4.9); SGOT/AST 8 U/L (15-37); TOT PROT 4.9 g/dl (6.4-8.2)
[2017-03-08] MEDS: ACETYLCYSTEINE 20% 200MG/ML 4 ML VIAL *FOR ORAL / INH USE ONLY NEB SCH ×3 (06:48→19:15)
[2017-03-08] MEDS: ALBUTEROL SO4 2.5/IPRATROPIUM 0.5 INH SOL 3 ML VIAL.NEB. NEB SCH ×3 (06:48→19:15)
[2017-03-08 06:49] LABS: ALK PHOS 69 U/L (45-117); SGPT/ALT 76 U/L (12-78)
[2017-03-08 07:56] LABS: ARTERIAL BLD GAS O2 SATURATION 99.4 % (90-98.9); ARTERIAL BLOOD GAS BASE EXCESS -0.5 meq/l (-2-2); ARTERIAL BLOOD GAS HCO3 24.6 meq/L (22-26); ARTERIAL BLOOD GAS pH 7.35 (7.35-7.45)
[2017-03-08 07:59] LABS: ALLENS TEST POSITIVE; ART PUNCT SITE RIGHT RADIAL; LPM/O2% 35; PT. ON O2? YES; TYPE OF O2 MECH VENT
[2017-03-08 08:00] LABS: MECH. VENT. YES; VENT RATE 12; VT/PRESS 350
--- NOTE | 2017-03-08 09:11 | PN ---
Progress Note (short form) - Note Progress Note: PULMONARY/CCM Pt seen and examined in the ICU. Remains intubated, sedated. Vented on volume assist control, saturating well on 40% FiO2. No fevers recorded. Placed on CPAP/ PS 10/5 with good tidal volumes and RR but pt too sedated. Last Vital Signs Temp Pulse Resp BP Pulse Ox 98.0 F 52 L 16 110/68 100 03/08/17 06:00 03/08/17 06:00 03/08/17 07:23 03/08/17 06:00 03/07/17 21:00 Intake & Output 03/05/17 03/06/17 03/07/17 03/08/17 23:59 23:59 23:59 23:59 Intake Total 2530 3123.8 1570 1150 Output Total 1700 2300 1125 600 Balance 830 823.8 445 550 Weight 133 lb 9.6 oz 128 lb 6 oz 132 lb 8 oz 135 lb 7 oz Gen: intubated, sedated Heart: RRR Lung: scattered rhonchi, wheezes Abd: soft, nontender Ext: UE edema CBC, BMP 03/08/17 05:30 03/08/17 05:30 Active Medications Acetaminophen (Tylenol -) 1,000 mg PO Q6H PRN PRN Reason: PAIN Acetylcysteine (Mucomyst 20 Oral / Inh Use Only*) 200 mg NEB QIDR [facility] Last Admin: 03/08/17 06:48 Dose: 200 mg Albuterol/Ipratropium (Duoneb -) 1 amp NEB QIDR [facility] Last Admin: 03/08/17 06:48 Dose: 1 amp Baclofen (Lioresal -) 20 mg PO TID [facility] Last Admin: 03/08/17 06:09 Dose: 20 mg Budesonide/Formoterol Fumarate (Symbicort 160/4.5mcg -) 2 puff IH BID [facility] Last Admin: 03/07/17 21:44 Dose: Not Given Cholecalciferol (Vitamin D3 -) 2,000 unit PO DAILY [facility] Last Admin: 03/07/17 11:00 Dose: 2,000 unit Dexamethasone Sodium Phosphate (Decadron Injection -) 8 mg IVPUSH Q8H-IV [facility] Last Admin: 03/08/17 02:47 Dose: 8 mg Diltiazem HCl (Cardizem -) 60 mg PO Q6HPO [facility] Last Admin: 03/08/17 06:10 Dose: Not Given Diphenhydramine HCl (Benadryl Oral Solution -) 25 mg PO Q4H PRN PRN Reason: FOR ITCHING Docusate Sodium (Colace -) 100 mg PO BID PRN PRN Reason: CONSTIPATION Last Admin: 02/26/17 21:49 Dose: 100 mg Doxepin HCl (Sinequan -) 25 mg PO HS [facility] Last Admin: 03/07/17 21:44 Dose: 25 mg Eletriptan (Relpax -) 40 mg PO Q6H PRN PRN Reason: HEADACHE Last Admin: 03/02/17 10:54 Dose: 40 mg Gabapentin (Neurontin -) 300 mg PO TID [facility] Last Admin: 03/08/17 06:09 Dose: 300 mg Guaifenesin (Mucinex -) 600 mg PO BID [facility] Last Admin: 03/07/17 21:44 Dose: 600 mg Guaifenesin (Robitussin -) 10 ml PO Q6H PRN PRN Reason: COUGH Last Admin: 02/28/17 05:52 Dose: 10 ml Heparin Sodium (Porcine) (Heparin -) 5,000 unit SQ TID [facility] Last Admin: 03/08/17 06:08 Dose: 5,000 unit Sodium Chloride (Normal Saline -) 1,000 mls @ 75 mls/hr IV ASDIR [facility] Last Admin: 03/07/17 11:05 Dose: 75 mls/hr Propofol (Diprivan -) 100 mls @ 1.818 mls/hr IVPB TITR EMMY; 5 MCG/KG/MIN PRN Reason: Protocol Last Admin: 03/07/17 17:29 Dose: 21 mls/hr Fentanyl 500 mcg/ Dextrose 100 mls @ 5 mls/hr IJ TITR EMMY PRN Reason: 25 MCG/HR Last Admin: 03/07/17 13:46 Dose: 10 mls/hr Insulin Aspart (Novolog Vial Sliding Scale -) 1 vial SQ ACHS EMMY PRN Reason: Protocol Last Admin: 03/08/17 06:14 Dose: 2 units Insulin Detemir (Levemir Vial) 5 units SQ BIDI [facility] Last Admin: 03/08/17 06:14 Dose: 5 units Levothyroxine Sodium (Synthroid -) 25 mcg PO DAILY@0700 [facility] Last Admin: 03/08/17 06:09 Dose: 25 mcg Lidocaine (Lidoderm Patch -) 1 patch TP DAILY [facility] Last Admin: 03/07/17 13:45 Dose: 1 patch Metoprolol Tartrate (Lopressor -) 25 mg PO TID [facility] Last Admin: 03/08/17 06:10 Dose: Not Given Mometasone Furoate (Asmanex 220mcg -) 2 puff IH DAILY [facility] Last Admin: 03/07/17 11:03 Dose: Not Given Multi-Ingredient Ointment (Zinc Oxide) 1 applic TP BID [facility] Last Admin: 03/07/17 21:44 Dose: 1 applic Multivitamins/Minerals/Vitamin C (Tab-A-Vit -) 1 tab PO DAILY [facility] Last Admin: 03/07/17 11:01 Dose: 1 tab Vortioxetine ( Trintellix) 10 Mg Tablet (Pt's Own) 1 each PO DAILY@0800 [facility] Last Admin: 03/07/17 17:24 Dose: Not Given Nystatin (Nystatin Oral Suspension -) 500,000 units PO Q6HPO [facility] Last Admin: 03/08/17 06:10 Dose: 500,000 units Ondansetron HCl (Zofran Injection) 4 mg IVPB Q6H PRN PRN Reason: NAUSEA Last Admin: 03/02/17 07:12 Dose: 4 mg Pancrelipase (Creon Dr 6,000 Units Capsule) 3 cap PO TIDCM [facility] Last Admin: 03/07/17 17:27 Dose: 3 cap Pantoprazole Sodium (Protonix -) 40 mg PO DAILY [facility] Last Admin: 03/07/17 11:08 Dose: 40 mg Piperacillin Sod/Tazobactam Sod (Zosyn 3.375gm Ivpb (Pre-Docked)) 3.375 gm IVPB Q8H-IV EMMY PRN Reason: Protocol Stop: 03/09/17 11:00 Last Admin: 03/08/17 02:48 Dose: 3.375 gm Roflumilast (Daliresp -) 500 mcg PO DAILY [facility] Last Admin: 03/07/17 11:17 Dose: 500 mcg Sodium Chloride ([place] Nas[place] -) 2 spray NS TID PRN PRN Reason: NASAL CONGESTION A/P Acute on Chronic Hypoxic and Hypercapneic Respiratory Failure Acute COPD/Asthma Exacerbation r/o Pneumonia Atrial Fibrillation HTN Chronic Pain Syndrome/Opiate Dependent - continue empiric antibiotics - continue steroids at current dose - inhaled bronchodilators standing and PRN - monitor H/H - titrate FiO2 to keep SpO2 >90% - lighten sedation in AM to assess mental status - spontaneous breathing trials as tolerated when mental status improved - rate control - DVT/GI prophylaxis - continue ICU monitoring critical care time spent reviewing chart, evaluating patient and formulating plan 40 min
[2017-03-08 09:46] LABS: ANISOCYTOSIS 2+; FRAGMENTED CELL 1+; HYPOCHROMIA 2+; MICROCYTOSIS 1+; PLATELET COMMENT2 NO CLOTTING DETECTED; PLATELET COUNT 211 K/MM3 (134-434); PLATELET ESTIMATE ADEQUATE (NORMAL); POIKILOCYTOSIS 2+; POLYCHROMASIA 1+
[2017-03-08] MEDS: PANTOPRAZOLE 40 MG TABLET (FP) PO SCH (10:00)
[2017-03-08] MEDS: LIPASE/PROTEASE/AMYLASE 6,000 UNIT CAPSULE PO SCH ×3 (10:00→17:57)
[2017-03-08] MEDS: ROFLUMILAST 500 MCG TABLET PO SCH (10:24)
[2017-03-08] MEDS: MOMETASONE FUROATE 220 MCG/IH INHALER IH SCH (10:27)
[2017-03-08] MEDS: PROPOFOL 100 ML IVPB SCH (10:28)
[2017-03-08] MEDS: BUDESONIDE/FORMETEROL FUMARATE 160/4.5 mcg INHALER IH SCH ×2 (10:32→22:00)
[2017-03-08] MEDS: LIDOCAINE 5% TOPICAL PATCH TP SCH (10:32)
[2017-03-08] MEDS: CHOLECALCIFEROL (VITAMIN D3) 1,000 UNIT TABLET (FP) PO SCH (10:33)
[2017-03-08] MEDS: MULTIVITAMINS (DAILY MVI) TABLET (FP) PO SCH (10:33)
[2017-03-08] MEDS: ZINC OXIDE 20% TOPICAL OINTMENT 30 GM TUBE TP SCH ×2 (10:34→22:00)
[2017-03-08] MEDS: guaiFENesin 600 MG TABLET.ER (FP) PO SCH ×2 (10:45→22:28)
[2017-03-08] MEDS: FENTANYL INJECTION 500 MCG in DEXTROSE 5%-WATER - 90 ML IJ SCH (10:45)
[2017-03-08] MEDS: SODIUM CHLORIDE 1,000 ML IV SCH ×2 (11:39→23:00)
[2017-03-08] MEDS ORDERED: PT OWN MED DRAWER 7, Y5N ONE ×3 (12:00→22:31)
[2017-03-08] MEDS ORDERED: PROPOFOL 100 ML ONE (13:07)
[2017-03-08] MEDS: MIDAZOLAM 100 MG in SODIUM CHLORIDE 100 ML IVPB SCH (14:00)
[2017-03-08] MEDS: VORTIOXETINE 10 MG PO SCH (16:17)
[2017-03-08] MEDS ORDERED: MIDAZOLAM 100 MG in SODIUM CHLORIDE 100 ML IVPB SCH (21:00)
--- NOTE | 2017-03-08 21:34 | PN ---
Physical Exam: SUBJECTIVE: Patient seen and examined OBJECTIVE: Vital Signs Period Temp Pulse Resp BP Sys/Dan Pulse Ox Last 24 Hr 98 F-98.9 F 44-73 12-22 94-137/61-88 GENERAL: Intubated, sedated. LUNGS: Scattered rhonchi, wheezes HEART: Regular rate and rhythm, S1, S2 without murmur, rub or gallop. ABDOMEN: Soft, nontender, nondistended UPPER EXTREMITIES: 1+ bilateral edema LOWER EXTREMITIES: no edema. Laboratory Results - last 24 hr 03/07/17 03/08/17 03/08/17 22:28 05:30 05:30 WBC 7.0 D RBC 2.65 L Hgb 7.0 L Hct 21.5 L MCV 81.3 MCHC 32.5 RDW 17.9 H Plt Count 211 MPV 9.0 Neutrophils % 94.0 H Lymphocytes % 2.0 L D Monocytes % 3.0 L Band Neutrophils 1.0 D Platelet Estimate Adequate Platelet Comment No clotting detected Polychromasia 1+ Hypochromic-Microcytic 2+ Poikilocytosis 2+ Anisocytosis 2+ Microcytosis 1+ Macrocytosis 1+ Fragmented RBCs 1+ Puncture Site ABG pH ABG pCO2 at Pt Temp ABG pO2 at Pt Temp ABG HCO3 ABG O2 Sat (Measured) ABG O2 Content ABG Base Excess Francis Test O2 Delivery Device Oxygen Flow Rate Vent Mode Vent Rate Mechanical Rate PEEP Pressure Support Vent Sodium 145 Potassium 3.9 Chloride 109 H Carbon Dioxide 28 Anion Gap 8 BUN 21 H Creatinine 0.4 L Creat Clearance w eGFR > 60 POC Glucometer [phone] Random Glucose 163 H Calcium 7.6 L Phosphorus 3.6 D Magnesium 2.6 H Total Bilirubin 0.4 D AST 8 L D ALT 76 D Alkaline Phosphatase 69 Total Protein 4.9 L Albumin 2.1 L 03/08/17 03/08/17 03/08/17 05:38 07:20 12:35 WBC RBC Hgb Hct MCV MCHC RDW Plt Count MPV Neutrophils % Lymphocytes % Monocytes % Band Neutrophils Platelet Estimate Platelet Comment Polychromasia Hypochromic-Microcytic Poikilocytosis Anisocytosis Microcytosis Macrocytosis Fragmented RBCs Puncture Site Right radial ABG pH 7.35 ABG pCO2 at Pt Temp 45.4 H ABG pO2 at Pt Temp 144.0 H D ABG HCO3 24.6 ABG O2 Sat (Measured) 99.4 H ABG O2 Content 12.4 L ABG Base Excess -0.5 Francis Test Positive O2 Delivery Device Mech vent Oxygen Flow Rate 35 Vent Mode Ac Vent Rate 12 Mechanical Rate Yes PEEP 5.0 Pressure Support Vent 350 Sodium Potassium Chloride Carbon Dioxide Anion Gap BUN Creatinine Creat Clearance w eGFR POC Glucometer 173.96009 186.55221 Random Glucose Calcium Phosphorus Magnesium Total Bilirubin AST ALT Alkaline Phosphatase Total Protein Albumin 03/08/17 20:36 WBC RBC Hgb Hct MCV MCHC RDW Plt Count MPV Neutrophils % Lymphocytes % Monocytes % Band Neutrophils Platelet Estimate Platelet Comment Polychromasia Hypochromic-Microcytic Poikilocytosis Anisocytosis Microcytosis Macrocytosis Fragmented RBCs Puncture Site ABG pH ABG pCO2 at Pt Temp ABG pO2 at Pt Temp ABG HCO3 ABG O2 Sat (Measured) ABG O2 Content ABG Base Excess Francis Test O2 Delivery Device Oxygen Flow Rate Vent Mode Vent Rate Mechanical Rate PEEP Pressure Support Vent Sodium Potassium Chloride Carbon Dioxide Anion Gap BUN Creatinine Creat Clearance w eGFR POC Glucometer [phone] Random Glucose Calcium Phosphorus Magnesium Total Bilirubin AST ALT Alkaline Phosphatase Total Protein Albumin Active Medications Generic Name Dose Route Start Last Admin Trade Name Freq PRN Reason Stop Dose Admin Acetaminophen 1,000 mg 02/26/17 20:20 Tylenol - PO Q6H PRN PAIN Acetylcysteine 200 mg 02/25/17 18:00 03/08/17 19:15 Mucomyst 20 Oral / Inh Use Only* NEB 200 mg QIDR EMMY Administration Albuterol/Ipratropium 1 amp 03/03/17 06:00 03/08/17 19:15 Duoneb - NEB 1 amp QIDR EMMY Administration Baclofen 20 mg 02/23/17 14:00 03/08/17 16:29 Lioresal - PO 20 mg TID EMMY Administration Budesonide/Formoterol Fumarate 2 puff 02/23/17 10:00 03/08/17 10:32 Symbicort 160/4.5mcg - IH Not Given BID EMMY Cholecalciferol 2,000 unit 02/24/17 10:00 03/08/17 10:33 Vitamin D3 - PO 2,000 unit DAILY EMMY Administration Dexamethasone Sodium Phosphate 8 mg 03/06/17 11:15 03/08/17 17:57 Decadron Injection - IVPUSH 8 mg Q8H-IV EMMY Administration Diltiazem HCl 60 mg 03/03/17 18:00 03/08/17 19:48 Cardizem - PO 60 mg Q6HPO EMMY Administration Diphenhydramine HCl 25 mg 02/23/17 17:32 Benadryl Oral Solution - PO Q4H PRN FOR ITCHING Docusate Sodium 100 mg 02/26/17 20:19 02/26/17 21:49 Colace - PO 100 mg BID PRN Administration CONSTIPATION Doxepin HCl 25 mg 02/23/17 22:00 03/07/17 21:44 Sinequan - PO 25 mg HS EMMY Administration Eletriptan 40 mg 02/24/17 10:38 03/02/17 10:54 Relpax - PO 40 mg Q6H PRN Administration HEADACHE Gabapentin 300 mg 02/23/17 14:00 03/08/17 14:00 Neurontin - PO 300 mg TID EMMY Administration Guaifenesin 600 mg 02/26/17 22:00 03/08/17 10:45 Mucinex - PO 600 mg BID EMMY Administration Guaifenesin 10 ml 02/26/17 17:39 02/28/17 05:52 Robitussin - PO 10 ml Q6H PRN Administration COUGH Heparin Sodium (Porcine) 5,000 unit 02/23/17 22:00 03/08/17 14:00 Heparin - SQ 5,000 unit TID EMMY Administration Sodium Chloride 1,000 mls @ 75 mls/hr 03/05/17 08:30 03/08/17 11:39 Normal Saline - IV 75 mls/hr ASDIR EMMY Administration Propofol 100 mls @ 1.818 mls/hr 03/05/17 09:00 03/08/17 10:28 Diprivan - IVPB 21 mls/hr TITR EMMY Administration Protocol 5 MCG/KG/MIN Fentanyl 500 mcg/ Dextrose 100 mls @ 5 mls/hr 03/05/17 09:00 03/08/17 10:45 IJ 10 mls/hr TITR EMMY Administration 25 MCG/HR Midazolam HCl 100 mg/ Sodium 100 mls @ 10 mls/hr 03/08/17 21:00 03/08/17 10:00 Chloride IVPB 10 mls/hr TITR EMMY Administration 10 MG/HR Insulin Aspart 1 vial 03/03/17 11:00 03/08/17 17:56 Novolog Vial Sliding Scale - SQ 4 units ACHS EMMY Administration Protocol Insulin Detemir 5 units 03/05/17 16:30 03/08/17 16:40 Levemir Vial SQ 5 units BIDI EMMY Administration Levothyroxine Sodium 25 mcg 02/23/17 10:00 03/08/17 06:09 Synthroid - PO 25 mcg DAILY@0700 EMMY Administration Lidocaine 1 patch 03/04/17 10:00 03/08/17 10:32 Lidoderm Patch - TP 1 patch DAILY EMMY Administration Metoprolol Tartrate 25 mg 03/03/17 14:00 03/08/17 14:00 Lopressor - PO 25 mg TID EMMY Administration Mometasone Furoate 2 puff 03/02/17 16:45 03/08/17 10:27 Asmanex 220mcg - IH Not Given DAILY EMMY Multi-Ingredient Ointment 1 applic 02/24/17 10:30 03/08/17 10:34 Zinc Oxide TP 1 applic BID EMMY Administration Multivitamins/Minerals/Vitamin C 1 tab 02/23/17 10:00 03/08/17 10:33 Tab-A-Vit - PO 1 tab DAILY EMMY Administration Vortioxetine ( 1 each 02/25/17 08:00 03/08/17 16:17 Trintellix) 10 Mg PO Not Given Tablet (Pt's Own) DAILY@0800 [facility] Nystatin 500,000 units 02/27/17 18:00 03/08/17 17:58 Nystatin Oral Suspension - PO 500,000 units Q6HPO EMMY Administration Ondansetron HCl 4 mg 02/23/17 08:18 03/02/17 07:12 Zofran Injection IVPB 4 mg Q6H PRN Administration NAUSEA Pancrelipase 3 cap 02/24/17 12:00 03/08/17 17:[address] 6,000 Units Capsule PO 3 cap TIDCM EMMY Administration Pantoprazole Sodium 40 mg 02/24/17 11:30 03/08/17 10:00 Protonix - PO 40 mg DAILY EMMY Administration Piperacillin Sod/Tazobactam Sod 3.375 gm 03/03/17 12:30 03/08/17 17:58 Zosyn 3.375gm Ivpb (Pre-Docked) IVPB 03/09/17 11:00 3.375 gm Q8H-IV EMMY Administration Protocol Roflumilast 500 mcg 02/23/17 10:00 03/08/17 10:24 Daliresp - PO 500 mcg DAILY EMMY Administration Sodium Chloride 2 spray 03/04/17 14:00 [place] Nasal [place] - NS TID PRN NASAL CONGESTION ASSESSMENT/PLAN 51 year-old female with a PMH of HTN, paroxysmal afib, NIDDM, asthma/COPD O2 dependent, previous tracheostomy (closed), uterine cancer, anxiety, depression, and bipolar disorder. Admitted with nausea, diarrhea, productive cough, and left sided body pain. Hospital course complicated by hypercarbic respiratory failure, intubated 03/02, extubated 03/04, reintubated 03/05. Acute on chroinc hypoxic and hypercapnic respiratory failure --continues on AC mode --daily weaning trials --continuing on dexamethasone for tracheal edema --inhaled bronchodilators standing and PRN --titrate FiO2 to keep SpO2 >90%, Acute COPD/Asthma exacerbation --continue decadron, Roflumilast Pseudomonas pneumonia --afebrile, leukocytosis resolved --continue Zosyn (day #6, complete 7 days of treatment) --Vanco x 4 days of treatment Anemia h/o GI bleed --Hgb steadily dropping over past five days, 10.7-->7.0 --stool occult ordered --re-consulted GI Paroxysmal afib --continue metoprolol and cardizem for rate control --[id number] score 3 ---not on anticoagulation secondary to a previous GI bleed Hypertension --continue metoprolol, cardizem Transaminitis --downtrending IDDM --Levemir 5mg BID --Novolog sliding scale coverage Hypothroidism --continue levothyroxine Anxiety, depression, chronic pain --continue psych meds that can be given through NG tube --caution with narcotic use low threshold for co2 retention s/p extubation Hypokalemia, resolved F/E/N Fluids/Nutrition: Osmolite 1.2 @ 20cc/hr, increase slowly as tolerated to 52cc/hr Electrolytes: replete as indicated DVT prophylaxis: no chemical prophylaxis due to Hgb 7.0 and h/o GI bleed; SCDs Dispo: continues to require ICU level care. Visit type - Emergency Visit Emergency Visit: Yes ED Registration Date: 02/24/17 Care time: The patient presented to the Emergency Department on the above date and was hospitalized for further evaluation of their emergent condition. - New Patient This patient is new to me today: No - Critical Care Critical Care patient: No Total Critical Care Time (in minutes): 35 Critical Care Statement: The care of this patient involved high complexity decision making to prevent further life threatening deterioration of the patient 's condition and/or to evalute & treat vital organ system(s) failure or risk of failure.
[2017-03-08] MEDS: DOXEPIN HCL 25 MG CAPSULE PO SCH (22:31)
[2017-03-09] MEDS: ACETYLCYSTEINE 20% 200MG/ML 4 ML VIAL *FOR ORAL / INH USE ONLY NEB SCH ×3 (01:06→11:05)
[2017-03-09] MEDS: ALBUTEROL SO4 2.5/IPRATROPIUM 0.5 INH SOL 3 ML VIAL.NEB. NEB SCH ×5 (01:07→23:36)
[2017-03-09] MEDS: FENTANYL INJECTION 500 MCG in DEXTROSE 5%-WATER - 90 ML IJ SCH ×2 (01:10→09:24)
[2017-03-09] MEDS: NYSTATIN 500,000 UNITS/5 ML SUSPENSION PO SCH ×4 (01:12→18:39)
[2017-03-09] MEDS: DEXAMETHASONE SOD PHOSPHATE 10 MG/1 ML VIAL IVPUSH SCH ×3 (01:30→18:33)
[2017-03-09] MEDS: PIPERACILLIN/TAZOB 3.375 GM/50 ML PRE-DOCKED IVPB SCH (01:30)
[2017-03-09] MEDS ORDERED: PT OWN MED DRAWER 7, Y5N ONE ×2 (06:09→09:16)
[2017-03-09] MEDS: HEPARIN NA (PORCINE) 5,000 UNITS/ML 1ML VIAL SQ SCH ×3 (06:10→22:32)
[2017-03-09] MEDS: METOPROLOL TARTRATE 25 MG TABLET (FP) PO SCH ×3 (06:10→22:33)
[2017-03-09] MEDS: dilTIAZem HCL 60 MG TABLET (FP) PO SCH ×2 (06:10→12:22)
[2017-03-09] MEDS: GABAPENTIN 300 MG CAPSULE (FP) PO SCH ×3 (06:12→22:33)
[2017-03-09 06:13] LABS: MCH 26.6 pg (25.7-33.7); MCHC 32.8 g/dl (32.0-36.0); MEAN CELL VOLUME 81.2 fl (80-96); MEAN PLT VOLUME 8.4 fl (7.5-11.1); PLATELET COUNT 246 K/MM3 (134-434); RDW 17.8 % (11.6-15.6); WHITE BLOOD COUNT 9.9 K/mm3 (4.0-10.0)
[2017-03-09] MEDS: INSULIN SLIDING SCALE (NOVOLOG) 1 VIAL SQ SCH ×4 (06:13→22:33)
[2017-03-09] MEDS: INSULIN DETEMIR 100 UNITS/ML MDV SQ SCH ×2 (06:13→18:36)
[2017-03-09] MEDS: LEVOTHYROXINE NA 25 MCG TABLET (FP) PO SCH (06:23)
[2017-03-09] MEDS: PROPOFOL 100 ML IVPB SCH ×2 (06:33→09:23)
[2017-03-09] MEDS: BACLOFEN 10 MG TABLET (FP) PO SCH ×3 (06:34→22:33)
[2017-03-09 06:54] LABS: ALBUMIN 2.1 g/dl (3.4-5.0); ANION GAP 10 (8-16); BILIRUBIN,TOTAL 0.3 mg/dL (0.2-1.0); CALCIUM 7.5 mg/dL (8.5-10.1); CO2 27 mmol/L (21-32); CREATININE 0.5 mg/dL (0.55-1.02); GLUCOSE,RANDOM 228 mg/dL (74-106); MAGNESIUM 2.2 mg/dL (1.8-2.4); SGOT/AST 13 U/L (15-37); SGPT/ALT 62 U/L (12-78); TOT PROT 5.1 g/dl (6.4-8.2)
[2017-03-09 06:55] LABS: ALK PHOS 82 U/L (45-117)
[2017-03-09 07:54] LABS: ARTERIAL BLD GAS O2 SATURATION 99.7 % (90-98.9); ARTERIAL BLOOD GAS BASE EXCESS -0.6 meq/l (-2-2); ARTERIAL BLOOD GAS HCO3 24.1 meq/L (22-26); ARTERIAL BLOOD GAS pH 7.37 (7.35-7.45)
[2017-03-09 07:55] LABS: ALLENS TEST POSITIVE; ART PUNCT SITE RIGHT RADIAL; LPM/O2% 35; MECH. VENT. YES; PT. ON O2? YES; TYPE OF O2 VENT; VENT RATE 12; VT/PRESS 350
[2017-03-09] MEDS: LIPASE/PROTEASE/AMYLASE 6,000 UNIT CAPSULE PO SCH ×3 (08:12→18:34)
[2017-03-09] MEDS ORDERED: ALPRAZolam 0.25 MG TABLET PO ONE (08:15)
[2017-03-09] MEDS: PANTOPRAZOLE 40 MG TABLET (FP) PO SCH (09:07)
[2017-03-09] MEDS: CHOLECALCIFEROL (VITAMIN D3) 1,000 UNIT TABLET (FP) PO SCH (09:07)
[2017-03-09] MEDS: MULTIVITAMINS (DAILY MVI) TABLET (FP) PO SCH (09:07)
[2017-03-09] MEDS: guaiFENesin 600 MG TABLET.ER (FP) PO SCH ×2 (09:08→22:33)
--- NOTE | 2017-03-09 09:16 | PN ---
Physical Exam: SUBJECTIVE: Patient seen and examined. She awake and aware of her surroundings. OBJECTIVE: labored breathing despite intubation unable to tolerate extubation despite numerous attempts Vital Signs Period Temp Pulse Resp BP Sys/Dan Pulse Ox Last 24 Hr 98.9 F-99.5 F 44-102 14-22 104-149/61-88 100-100 GENERAL: The patient is awake, alert, now intubated HEAD: Normal with no signs of trauma. EYES: PERRL, extraocular movements intact, sclera anicteric, conjunctiva clear. No ptosis. ENT: Ears normal, nares patent, oropharynx clear without exudates, moist mucous membranes. NECK: Trachea midline, full range of motion, supple. LUNGS: expiratory wheezing, rhonchi on anterior lungs HEART: Regular rate and rhythm, S1, S2 without murmur, rub or gallop. ABDOMEN: no abdominal pain, non distended, + bowel sounds EXTREMITIES: well-perfused, no edema. NEUROLOGICAL: intubated, gait not observed. PSYCH: Normal mood, normal affect. SKIN: Warm, dry, normal turgor, no rashes or lesions noted Laboratory Results - last 24 hr 03/08/17 03/08/17 03/08/17 05:30 12:35 16:53 WBC RBC Hgb Hct MCV MCHC RDW Plt Count 211 MPV Neutrophils % 94.0 H Lymphocytes % 2.0 L D Monocytes % 3.0 L Band Neutrophils 1.0 D Platelet Estimate Adequate Platelet Comment No clotting detected Polychromasia 1+ Hypochromic-Microcytic 2+ Poikilocytosis 2+ Anisocytosis 2+ Microcytosis 1+ Macrocytosis 1+ Fragmented RBCs 1+ Puncture Site ABG pH ABG pCO2 at Pt Temp ABG pO2 at Pt Temp ABG HCO3 ABG O2 Sat (Measured) ABG O2 Content ABG Base Excess Francis Test O2 Delivery Device Oxygen Flow Rate Vent Mode Vent Rate Mechanical Rate PEEP Pressure Support Vent Sodium Potassium Chloride Carbon Dioxide Anion Gap BUN Creatinine Creat Clearance w eGFR POC Glucometer 186.74818 228.14955 Random Glucose Calcium Phosphorus Magnesium Total Bilirubin AST ALT Alkaline Phosphatase Total Protein Albumin 03/08/17 03/09/17 03/09/17 20:36 05:45 05:45 WBC 9.9 D RBC 2.83 L Hgb 7.5 L Hct 23.0 L MCV 81.2 MCHC 32.8 RDW 17.8 H Plt Count 246 MPV 8.4 Neutrophils % Y Lymphocytes % Y Monocytes % Band Neutrophils Platelet Estimate Platelet Comment Polychromasia Hypochromic-Microcytic Poikilocytosis Anisocytosis Microcytosis Macrocytosis Fragmented RBCs Puncture Site ABG pH ABG pCO2 at Pt Temp ABG pO2 at Pt Temp ABG HCO3 ABG O2 Sat (Measured) ABG O2 Content ABG Base Excess Francis Test O2 Delivery Device Oxygen Flow Rate Vent Mode Vent Rate Mechanical Rate PEEP Pressure Support Vent Sodium 145 Potassium 3.8 Chloride 108 H Carbon Dioxide 27 Anion Gap 10 BUN 22 H Creatinine 0.5 L D Creat Clearance w eGFR > 60 POC Glucometer [phone] Random Glucose 228 H D Calcium 7.5 L Phosphorus 3.0 Magnesium 2.2 Total Bilirubin 0.3 D AST 13 L D ALT 62 Alkaline Phosphatase 82 Total Protein 5.1 L Albumin 2.1 L 03/09/17 03/09/17 06:03 07:20 WBC RBC Hgb Hct MCV MCHC RDW Plt Count MPV Neutrophils % Lymphocytes % Monocytes % Band Neutrophils Platelet Estimate Platelet Comment Polychromasia Hypochromic-Microcytic Poikilocytosis Anisocytosis Microcytosis Macrocytosis Fragmented RBCs Puncture Site Right radial ABG pH 7.37 ABG pCO2 at Pt Temp 42.8 ABG pO2 at Pt Temp 176.0 H* ABG HCO3 24.1 ABG O2 Sat (Measured) 99.7 H* ABG O2 Content 10.7 L ABG Base Excess -0.6 Francis Test Positive O2 Delivery Device Vent Oxygen Flow Rate 35 Vent Mode A/c Vent Rate 12 Mechanical Rate Yes PEEP 5.0 Pressure Support Vent 350 Sodium Potassium Chloride Carbon Dioxide Anion Gap BUN Creatinine Creat Clearance w eGFR POC Glucometer [phone] Random Glucose Calcium Phosphorus Magnesium Total Bilirubin AST ALT Alkaline Phosphatase Total Protein Albumin Active Medications Generic Name Dose Route Start Last Admin Trade Name Freq PRN Reason Stop Dose Admin Acetaminophen 1,000 mg 02/26/17 20:20 Tylenol - PO Q6H PRN PAIN Acetylcysteine 200 mg 02/25/17 18:00 03/09/17 06:56 Mucomyst 20 Oral / Inh Use Only* NEB 200 mg QIDR EMMY Administration Albuterol/Ipratropium 1 amp 03/03/17 06:00 03/09/17 06:57 Duoneb - NEB 1 amp QIDR EMMY Administration Baclofen 20 mg 02/23/17 14:00 03/09/17 06:34 Lioresal - PO 20 mg TID EMMY Administration Budesonide/Formoterol Fumarate 2 puff 02/23/17 10:00 03/08/17 22:00 Symbicort 160/4.5mcg - IH Not Given BID EMMY Cholecalciferol 2,000 unit 02/24/17 10:00 03/08/17 10:33 Vitamin D3 - PO 2,000 unit DAILY EMMY Administration Dexamethasone Sodium Phosphate 8 mg 03/06/17 11:15 03/09/17 01:30 Decadron Injection - IVPUSH 8 mg Q8H-IV EMMY Administration Diltiazem HCl 60 mg 03/03/17 18:00 03/09/17 06:10 Cardizem - PO 60 mg Q6HPO EMMY Administration Diphenhydramine HCl 25 mg 02/23/17 17:32 Benadryl Oral Solution - PO Q4H PRN FOR ITCHING Docusate Sodium 100 mg 02/26/17 20:19 02/26/17 21:49 Colace - PO 100 mg BID PRN Administration CONSTIPATION Doxepin HCl 25 mg 02/23/17 22:00 03/08/17 22:31 Sinequan - PO 25 mg HS EMMY Administration Eletriptan 40 mg 02/24/17 10:38 03/02/17 10:54 Relpax - PO 40 mg Q6H PRN Administration HEADACHE Gabapentin 300 mg 02/23/17 14:00 03/09/17 06:12 Neurontin - PO 300 mg TID EMMY Administration Guaifenesin 600 mg 02/26/17 22:00 03/08/17 22:28 Mucinex - PO 600 mg BID EMMY Administration Guaifenesin 10 ml 02/26/17 17:39 02/28/17 05:52 Robitussin - PO 10 ml Q6H PRN Administration COUGH Heparin Sodium (Porcine) 5,000 unit 02/23/17 22:00 03/09/17 06:10 Heparin - SQ 5,000 unit TID EMMY Administration Sodium Chloride 1,000 mls @ 75 mls/hr 03/05/17 08:30 03/08/17 23:00 Normal Saline - IV 75 mls/hr ASDIR EMMY Administration Propofol 100 mls @ 1.818 mls/hr 03/05/17 09:00 03/09/17 06:33 Diprivan - IVPB 21.816 mls/hr TITR EMMY Administration Protocol 5 MCG/KG/MIN Fentanyl 500 mcg/ Dextrose 100 mls @ 5 mls/hr 03/05/17 09:00 03/09/17 01:10 IJ 10 mls/hr TITR EMMY Administration 25 MCG/HR Midazolam HCl 100 mg/ Sodium 100 mls @ 10 mls/hr 03/08/17 21:00 03/08/17 10:00 Chloride IVPB 10 mls/hr TITR EMMY Administration 10 MG/HR Insulin Aspart 1 vial 03/03/17 11:00 03/09/17 06:13 Novolog Vial Sliding Scale - SQ 4 units ACHS EMMY Administration Protocol Insulin Detemir 5 units 03/05/17 16:30 03/09/17 06:13 Levemir Vial SQ 5 units BIDI EMMY Administration Levothyroxine Sodium 25 mcg 02/23/17 10:00 03/09/17 06:23 Synthroid - PO 25 mcg DAILY@0700 EMMY Administration Lidocaine 1 patch 03/04/17 10:00 03/08/17 10:32 Lidoderm Patch - TP 1 patch DAILY EMMY Administration Metoprolol Tartrate 25 mg 03/03/17 14:00 03/09/17 06:10 Lopressor - PO 25 mg TID EMMY Administration Mometasone Furoate 2 puff 03/02/17 16:45 03/08/17 10:27 Asmanex 220mcg - IH Not Given DAILY EMMY Multi-Ingredient Ointment 1 applic 02/24/17 10:30 03/08/17 22:00 Zinc Oxide TP 1 applic BID EMMY Administration Multivitamins/Minerals/Vitamin C 1 tab 02/23/17 10:00 03/08/17 10:33 Tab-A-Vit - PO 1 tab DAILY EMMY Administration Vortioxetine ( 1 each 02/25/17 08:00 03/08/17 16:17 Trintellix) 10 Mg PO Not Given Tablet (Pt's Own) DAILY@0800 EMMY Nystatin 500,000 units 02/27/17 18:00 03/09/17 06:10 Nystatin Oral Suspension - PO 500,000 units Q6HPO EMMY Administration Ondansetron HCl 4 mg 02/23/17 08:18 03/02/17 07:12 Zofran Injection IVPB 4 mg Q6H PRN Administration NAUSEA Pancrelipase 3 cap 02/24/17 12:00 03/09/17 08:12 [place] 6,000 Units Capsule PO 3 cap TIDCM EMMY Administration Pantoprazole Sodium 40 mg 02/24/17 11:30 03/08/17 10:00 Protonix - PO 40 mg DAILY EMMY Administration Roflumilast 500 mcg 02/23/17 10:00 03/08/17 10:24 Daliresp - PO 500 mcg DAILY EMMY Administration Sodium Chloride 2 spray 03/04/17 14:00 [place] Nasal [place] - NS TID PRN NASAL CONGESTION ASSESSMENT/PLAN: Patient is a 51 year old female with a past medical history of proximal atrial fib, hypertension, diabetes, COPD (home oxygen dependent), asthma, tracheostomy , uterine cancer, anxiety, depression and bipolar disorder. She presents to the ED on 02/23/2017 with nausea, diarrhea, productive cough, and left sided body pain since yesterday. She states she is currently on doxycycline, but reports having left lower sided body aches and diarrhea since taking this medication. She reports her cough has been persistent and productive of yellow sputum. She states the cough keeps her up at night. She was admitted to [facility] with c/o of abdominal pain, diarrhea and acute COPD exacerbation. Pulmonary: Respiratory Failure secondary to COPD exacerbation - acute Assessment/Plan: Patient intubated this morning On light sedation of propofol - but weaning off On Decadron 6mg q8 Aspiration precautions Pulmonary following Goal is to keep spo2 >90% ID: Leukocytosis - improved Assessment/Plan: Monitor off antibiotics WBC 9.9 afebrile Psyche Bipolar/anxiety/depression Assessment/Plan: continue psyche home meds Endocrine: Diabetes mellitus - chronic Assessment/Plan: Novolog sliding scale Monitor BGMs while on steroids Cardiology: Proxy Atrial Fib Currently in Sinus rhythm On lopressor PO, Cardizem FEN Fluid: NS @ 75 cc/hr Electrolytes: Monitor labs Nutrition: NPO - has NGT Prophylaxis DVT: SCD, heparin SQ GI: Protonix NGT feeds per dietary Disposition: Requires ICU monitoring. Full Code. Visit type - Emergency Visit Emergency Visit: Yes ED Registration Date: 02/24/17 Care time: The patient presented to the Emergency Department on the above date and was hospitalized for further evaluation of their emergent condition. - New Patient This patient is new to me today: No - Critical Care Critical Care patient: Yes Total Critical Care Time (in minutes): 45 Critical Care Statement: The care of this patient involved high complexity decision making to prevent further life threatening deterioration of the patient 's condition and/or to evalute & treat vital organ system(s) failure or risk of failure. - Discharge Referral Referred to [facility] No
[2017-03-09] MEDS: ROFLUMILAST 500 MCG TABLET PO SCH (09:17)
[2017-03-09 11:04] LABS: PLATELET ESTIMATE ADEQUATE (NORMAL)
--- NOTE | 2017-03-09 11:23 | PN ---
Teaching Attending Note Name of Resident: Nabor Weldon ATTENDING PHYSICIAN STATEMENT I saw and evaluated the patient. I reviewed the resident's note and discussed the case with the resident. I agree with the resident's findings and plan as documented. SUBJECTIVE: Pt seen and examined in the ICU. Remains intubated, awake off sedation. Tolerating CPAP/PS trials but some accessory muscle use. Extubated to BiPAP. OBJECTIVE: Last Vital Signs Temp Pulse Resp BP Pulse Ox 99.2 F 92 H 17 152/97 99 03/09/17 10:00 03/09/17 10:00 03/09/17 10:00 03/09/17 10:00 03/09/17 11:11 Intake & Output 03/06/17 03/07/17 03/08/17 03/09/17 23:59 23:59 23:59 23:59 Intake Total 3123.8 1570 1150 2291.8 Output Total 2300 1125 1500 950 Balance 823.8 445 -350 1341.8 Weight 128 lb 6 oz 132 lb 8 oz 135 lb 7 oz 141 lb 15.643 oz Gen: intubated, awake Heart: RRR Lung: scattered rhonchi Abd: soft, nontender Ext: no edema CBC, BMP 03/09/17 05:45 03/09/17 05:45 Active Medications Acetaminophen (Tylenol -) 1,000 mg PO Q6H PRN PRN Reason: PAIN Acetylcysteine (Mucomyst 20 Oral / Inh Use Only*) 200 mg NEB QIDR [facility] Last Admin: 03/09/17 06:56 Dose: 200 mg Albuterol/Ipratropium (Duoneb -) 1 amp NEB QIDR [facility] Last Admin: 03/09/17 06:57 Dose: 1 amp Baclofen (Lioresal -) 20 mg PO TID [facility] Last Admin: 03/09/17 06:34 Dose: 20 mg Budesonide/Formoterol Fumarate (Symbicort 160/4.5mcg -) 2 puff IH BID [facility] Last Admin: 03/08/17 22:00 Dose: Not Given Cholecalciferol (Vitamin D3 -) 2,000 unit PO DAILY [facility] Last Admin: 03/09/17 09:07 Dose: 2,000 unit Dexamethasone Sodium Phosphate (Decadron Injection -) 6 mg IVPUSH Q8H-IV EMMY Diltiazem HCl (Cardizem -) 60 mg PO Q6HPO [facility] Last Admin: 03/09/17 06:10 Dose: 60 mg Diphenhydramine HCl (Benadryl Oral Solution -) 25 mg PO Q4H PRN PRN Reason: FOR ITCHING Docusate Sodium (Colace -) 100 mg PO BID PRN PRN Reason: CONSTIPATION Last Admin: 02/26/17 21:49 Dose: 100 mg Doxepin HCl (Sinequan -) 25 mg PO HS [facility] Last Admin: 03/08/17 22:31 Dose: 25 mg Eletriptan (Relpax -) 40 mg PO Q6H PRN PRN Reason: HEADACHE Last Admin: 03/02/17 10:54 Dose: 40 mg Gabapentin (Neurontin -) 300 mg PO TID [facility] Last Admin: 03/09/17 06:12 Dose: 300 mg Guaifenesin (Mucinex -) 600 mg PO BID [facility] Last Admin: 03/09/17 09:08 Dose: 600 mg Guaifenesin (Robitussin -) 10 ml PO Q6H PRN PRN Reason: COUGH Last Admin: 02/28/17 05:52 Dose: 10 ml Heparin Sodium (Porcine) (Heparin -) 5,000 unit SQ TID [facility] Last Admin: 03/09/17 06:10 Dose: 5,000 unit Sodium Chloride (Normal Saline -) 1,000 mls @ 75 mls/hr IV ASDIR [facility] Last Admin: 03/08/17 23:00 Dose: 75 mls/hr Propofol (Diprivan -) 100 mls @ 1.818 mls/hr IVPB TITR EMMY; 5 MCG/KG/MIN PRN Reason: Protocol Last Admin: 03/09/17 09:23 Dose: Not Given Fentanyl 500 mcg/ Dextrose 100 mls @ 5 mls/hr IJ TITR EMMY PRN Reason: 25 MCG/HR Last Admin: 03/09/17 09:24 Dose: Not Given Midazolam HCl 100 mg/ Sodium (Chloride) 100 mls @ 10 mls/hr IVPB TITR EMMY PRN Reason: 10 MG/HR Last Admin: 03/08/17 10:00 Dose: 10 mls/hr Insulin Aspart (Novolog Vial Sliding Scale -) 1 vial SQ ACHS EMMY PRN Reason: Protocol Last Admin: 03/09/17 06:13 Dose: 4 units Insulin Detemir (Levemir Vial) 5 units SQ BIDI [facility] Last Admin: 03/09/17 06:13 Dose: 5 units Ketorolac Tromethamine (Toradol Injection -) 30 mg IM ONCE ONE Stop: 03/09/17 11:09 Levothyroxine Sodium (Synthroid -) 25 mcg PO DAILY@0700 [facility] Last Admin: 03/09/17 06:23 Dose: 25 mcg Lidocaine (Lidoderm Patch -) 1 patch TP DAILY [facility] Last Admin: 03/08/17 10:32 Dose: 1 patch Metoprolol Tartrate (Lopressor -) 25 mg PO TID [facility] Last Admin: 03/09/17 06:10 Dose: 25 mg Mometasone Furoate (Asmanex 220mcg -) 2 puff IH DAILY [facility] Last Admin: 03/08/17 10:27 Dose: Not Given Multi-Ingredient Ointment (Zinc Oxide) 1 applic TP BID [facility] Last Admin: 03/08/17 22:00 Dose: 1 applic Multivitamins/Minerals/Vitamin C (Tab-A-Vit -) 1 tab PO DAILY [facility] Last Admin: 03/09/17 09:07 Dose: 1 tab Vortioxetine ( Trintellix) 10 Mg Tablet (Pt's Own) 1 each PO DAILY@0800 [facility] Last Admin: 03/08/17 16:17 Dose: Not Given Nystatin (Nystatin Oral Suspension -) 500,000 units PO Q6HPO [facility] Last Admin: 03/09/17 06:10 Dose: 500,000 units Ondansetron HCl (Zofran Injection) 4 mg IVPB Q6H PRN PRN Reason: NAUSEA Last Admin: 03/02/17 07:12 Dose: 4 mg Pancrelipase (Creon Dr 6,000 Units Capsule) 3 cap PO TIDCM [facility] Last Admin: 03/09/17 08:12 Dose: 3 cap Pantoprazole Sodium (Protonix -) 40 mg PO DAILY [facility] Last Admin: 03/09/17 09:07 Dose: 40 mg Roflumilast (Daliresp -) 500 mcg PO DAILY [facility] Last Admin: 03/09/17 09:17 Dose: 500 mcg Sodium Chloride ([place] -) 2 spray NS TID PRN PRN Reason: NASAL CONGESTION ASSESSMENT AND PLAN: Acute on Chronic Hypoxic and Hypercapneic Respiratory Failure Acute COPD/Asthma Exacerbation r/o Pneumonia Atrial Fibrillation HTN Chronic Pain Syndrome/Opiate Dependent - s/p antibiotics - taper decadron - inhaled bronchodilators standing and PRN - monitor H/H - extubated to BiPAP - titrate FiO2 to keep SpO2 >90% - rate control - DVT/GI prophylaxis - continue ICU monitoring critical care time spent reviewing chart, evaluating patient and formulating plan 35 min
[2017-03-09] MEDS ORDERED: KETOROLAC TROMETHAMINE 30 MG/1 ML VIAL IM ONE (11:30)
--- NOTE | 2017-03-09 11:53 | PN ---
Physical Exam: SUBJECTIVE: Patient seen and examined Patient off sedation, and extubated, maintaining saturation of 100 on bipap complaining of back pain for which toradol was given. patient conscious OBJECTIVE: Vital Signs Period Temp Pulse Resp BP Sys/Dan Pulse Ox Last 24 Hr 98.9 F-99.5 F 44-106 14-24 109-176/65-118 99-100 GENERAL: conscious and oriented HEAD: Normal with no signs of trauma. EYES: PERRL, ENT: Ears normal, nares patent, moist mucous membranes. NECK: Trachea midline, full range of motion, supple. LUNGS: Breath sounds equal, b/l mild rales at base HEART: Regular rate, sis2 normal . ABDOMEN: Soft, nontender, nondistended, normoactive bowel sounds, no guarding, no rebound, EXTREMITIES: 2+ pulses, warm, no edema. SKIN: Warm, dry, Laboratory Results - last 24 hr 03/08/17 03/08/17 03/08/17 12:35 16:53 20:36 WBC RBC Hgb Hct MCV MCHC RDW Plt Count MPV Neutrophils % Lymphocytes % Monocytes % Differential Comment Platelet Estimate Puncture Site ABG pH ABG pCO2 at Pt Temp ABG pO2 at Pt Temp ABG HCO3 ABG O2 Sat (Measured) ABG O2 Content ABG Base Excess Francis Test O2 Delivery Device Oxygen Flow Rate Vent Mode Vent Rate Mechanical Rate PEEP Pressure Support Vent Sodium Potassium Chloride Carbon Dioxide Anion Gap BUN Creatinine Creat Clearance w eGFR POC Glucometer 186.47784 228.19391 221.03262 Random Glucose Calcium Phosphorus Magnesium Total Bilirubin AST ALT Alkaline Phosphatase Total Protein Albumin 03/09/17 03/09/17 03/09/17 05:45 05:45 06:03 WBC 9.9 D RBC 2.83 L Hgb 7.5 L Hct 23.0 L MCV 81.2 MCHC 32.8 RDW 17.8 H Plt Count 246 MPV 8.4 Neutrophils % 97.0 H Lymphocytes % 2.0 L Monocytes % 1.0 L Differential Comment Manual diff done Platelet Estimate Adequate Puncture Site ABG pH ABG pCO2 at Pt Temp ABG pO2 at Pt Temp ABG HCO3 ABG O2 Sat (Measured) ABG O2 Content ABG Base Excess Francis Test O2 Delivery Device Oxygen Flow Rate Vent Mode Vent Rate Mechanical Rate PEEP Pressure Support Vent Sodium 145 Potassium 3.8 Chloride 108 H Carbon Dioxide 27 Anion Gap 10 BUN 22 H Creatinine 0.5 L D Creat Clearance w eGFR > 60 POC Glucometer [phone] Random Glucose 228 H D Calcium 7.5 L Phosphorus 3.0 Magnesium 2.2 Total Bilirubin 0.3 D AST 13 L D ALT 62 Alkaline Phosphatase 82 Total Protein 5.1 L Albumin 2.1 L 03/09/17 07:20 WBC RBC Hgb Hct MCV MCHC RDW Plt Count MPV Neutrophils % Lymphocytes % Monocytes % Differential Comment Platelet Estimate Puncture Site Right radial ABG pH 7.37 ABG pCO2 at Pt Temp 42.8 ABG pO2 at Pt Temp 176.0 H* ABG HCO3 24.1 ABG O2 Sat (Measured) 99.7 H* ABG O2 Content 10.7 L ABG Base Excess -0.6 Francis Test Positive O2 Delivery Device Vent Oxygen Flow Rate 35 Vent Mode A/c Vent Rate 12 Mechanical Rate Yes PEEP 5.0 Pressure Support Vent 350 Sodium Potassium Chloride Carbon Dioxide Anion Gap BUN Creatinine Creat Clearance w eGFR POC Glucometer Random Glucose Calcium Phosphorus Magnesium Total Bilirubin AST ALT Alkaline Phosphatase Total Protein Albumin Active Medications Generic Name Dose Route Start Last Admin Trade Name Freq PRN Reason Stop Dose Admin Acetaminophen 1,000 mg 02/26/17 20:20 Tylenol - PO Q6H PRN PAIN Acetylcysteine 200 mg 02/25/17 18:00 03/09/17 11:05 Mucomyst 20 Oral / Inh Use Only* NEB 200 mg QIDR EMMY Administration Albuterol/Ipratropium 1 amp 03/03/17 06:00 03/09/17 11:05 Duoneb - NEB 1 amp QIDR EMMY Administration Baclofen 20 mg 02/23/17 14:00 03/09/17 06:34 Lioresal - PO 20 mg TID EMMY Administration Budesonide/Formoterol Fumarate 2 puff 02/23/17 10:00 03/08/17 22:00 Symbicort 160/4.5mcg - IH Not Given BID EMMY Cholecalciferol 2,000 unit 02/24/17 10:00 03/09/17 09:07 Vitamin D3 - PO 2,000 unit DAILY EMMY Administration Dexamethasone Sodium Phosphate 6 mg 03/09/17 11:07 Decadron Injection - IVPUSH Q8H-IV EMMY Diltiazem HCl 60 mg 03/03/17 18:00 03/09/17 06:10 Cardizem - PO 60 mg Q6HPO EMMY Administration Diphenhydramine HCl 25 mg 02/23/17 17:32 Benadryl Oral Solution - PO Q4H PRN FOR ITCHING Docusate Sodium 100 mg 02/26/17 20:19 02/26/17 21:49 Colace - PO 100 mg BID PRN Administration CONSTIPATION Doxepin HCl 25 mg 02/23/17 22:00 03/08/17 22:31 Sinequan - PO 25 mg HS EMMY Administration Eletriptan 40 mg 02/24/17 10:38 03/02/17 10:54 Relpax - PO 40 mg Q6H PRN Administration HEADACHE Gabapentin 300 mg 02/23/17 14:00 03/09/17 06:12 Neurontin - PO 300 mg TID EMMY Administration Guaifenesin 600 mg 02/26/17 22:00 03/09/17 09:08 Mucinex - PO 600 mg BID EMMY Administration Guaifenesin 10 ml 02/26/17 17:39 02/28/17 05:52 Robitussin - PO 10 ml Q6H PRN Administration COUGH Heparin Sodium (Porcine) 5,000 unit 02/23/17 22:00 03/09/17 06:10 Heparin - SQ 5,000 unit TID EMMY Administration Sodium Chloride 1,000 mls @ 75 mls/hr 03/05/17 08:30 03/08/17 23:00 Normal Saline - IV 75 mls/hr ASDIR EMMY Administration Propofol 100 mls @ 1.818 mls/hr 03/05/17 09:00 03/09/17 09:23 Diprivan - IVPB Not Given TITR EMMY Protocol 5 MCG/KG/MIN Fentanyl 500 mcg/ Dextrose 100 mls @ 5 mls/hr 03/05/17 09:00 03/09/17 09:24 IJ Not Given TITR EMMY 25 MCG/HR Midazolam HCl 100 mg/ Sodium 100 mls @ 10 mls/hr 03/08/17 21:00 03/08/17 10:00 Chloride IVPB 10 mls/hr TITR EMMY Administration 10 MG/HR Insulin Aspart 1 vial 03/03/17 11:00 03/09/17 06:13 Novolog Vial Sliding Scale - SQ 4 units ACHS EMMY Administration Protocol Insulin Detemir 5 units 03/05/17 16:30 04/17/17 06:13 Levemir Vial SQ 5 units BIDI EMMY Administration Levothyroxine Sodium 25 mcg 02/23/17 10:00 03/09/17 06:23 Synthroid - PO 25 mcg DAILY@0700 EMMY Administration Lidocaine 1 patch 03/04/17 10:00 03/08/17 10:32 Lidoderm Patch - TP 1 patch DAILY EMMY Administration Metoprolol Tartrate 25 mg 03/03/17 14:00 03/09/17 06:10 Lopressor - PO 25 mg TID EMMY Administration Mometasone Furoate 2 puff 03/02/17 16:45 03/08/17 10:27 Asmanex 220mcg - IH Not Given DAILY EMMY Multi-Ingredient Ointment 1 applic 02/24/17 10:30 03/08/17 22:00 Zinc Oxide TP 1 applic BID EMMY Administration Multivitamins/Minerals/Vitamin C 1 tab 02/23/17 10:00 03/09/17 09:07 Tab-A-Vit - PO 1 tab DAILY EMMY Administration Vortioxetine ( 1 each 02/25/17 08:00 03/08/17 16:17 Trintellix) 10 Mg PO Not Given Tablet (Pt's Own) DAILY@0800 EMMY Nystatin 500,000 units 02/27/17 18:00 03/09/17 06:10 Nystatin Oral Suspension - PO 500,000 units Q6HPO EMMY Administration Ondansetron HCl 4 mg 02/23/17 08:18 03/02/17 07:12 Zofran Injection IVPB 4 mg Q6H PRN Administration NAUSEA Pancrelipase 3 cap 02/24/17 12:00 03/09/17 08:[address] 6,000 Units Capsule PO 3 cap TIDCM EMMY Administration Pantoprazole Sodium 40 mg 02/24/17 11:30 03/09/17 09:07 Protonix - PO 40 mg DAILY EMMY Administration Roflumilast 500 mcg 02/23/17 10:00 03/09/17 09:17 Daliresp - PO 500 mcg DAILY EMMY Administration Sodium Chloride 2 spray 03/04/17 14:00 [place] Nasal [place] - NS TID PRN NASAL CONGESTION ASSESSMENT/PLAN: Hypercapnic Respiratory Failure secondary to copd excerbation -on bipap 1/e 14/6 rr16 fio2 35 - off sedation -Cont Albuterol nebs and Atrovent ne - decrease decadron to 6mg q8 -Aspiration precautions - monitor vitals - keep spo2 >90 :Leukocytosis: HCAP pseudomonas wbc decreased to 9.9 completed a course of antibiotic zosyn for 7 days afebrile Afib, HTN; hypertensive post arrest; troponin wnl start with metoprolol tartrate and cardiazem - Hypokalemia improved k 3.8 Elevated AST/ALT/Alk phos - improving - follow lft Neuro/Psyche: Anxiety, depression, chronic pain -Cont standing anti depressant -Cont neurontin and baclofen for chronic pain I/o 1150/1500 electrolyte : repeat in am nutrition; tube feed as per dietary recommendations Proph: Hep SQ/PPI gi pro : on protonix dispo : admit in icu Visit type - Emergency Visit Emergency Visit: Yes ED Registration Date: 02/24/17 Care time: The patient presented to the Emergency Department on the above date and was hospitalized for further evaluation of their emergent condition. - New Patient This patient is new to me today: No - Critical Care Critical Care patient: Yes Total Critical Care Time (in minutes): 45 Critical Care Statement: The care of this patient involved high complexity decision making to prevent further life threatening deterioration of the patient 's condition and/or to evalute & treat vital organ system(s) failure or risk of failure.
[2017-03-09] MEDS ORDERED: HYDROmorphone HCL CARPU-JECT 1 MG/1 ML DISP.SYRIN IVPB ONE ×2 (12:00→14:45)
[2017-03-09] MEDS: LIDOCAINE 5% TOPICAL PATCH TP SCH (12:08)
[2017-03-09] MEDS: VORTIOXETINE 10 MG PO SCH (12:20)
[2017-03-09] MEDS: ZINC OXIDE 20% TOPICAL OINTMENT 30 GM TUBE TP SCH ×2 (12:21→22:34)
[2017-03-09] MEDS: MIDAZOLAM 100 MG in SODIUM CHLORIDE 100 ML IVPB SCH (12:22)
[2017-03-09] MEDS ORDERED: dilTIAZem HCL 125 MG/25 ML - 25 ML VIAL ONE (12:26)
[2017-03-09] MEDS: SODIUM CHLORIDE 1,000 ML IV SCH (12:58)
[2017-03-09] MEDS: dilTIAZem HCL 50 MG/10 ML - 10 ML VIAL IVPUSH SCH ×2 (12:59→18:40)
[2017-03-09] MEDS ORDERED: HYDROmorphone HCL CARPU-JECT 1 MG/1 ML DISP.SYRIN IM ONE (13:50)
[2017-03-09] MEDS: ONDANSETRON 4 MG/2 ML VIAL IVPB PRN (15:00)
[2017-03-09] MEDS: BUDESONIDE/FORMETEROL FUMARATE 160/4.5 mcg INHALER IH SCH ×2 (15:23→22:34)
[2017-03-09] MEDS: MOMETASONE FUROATE 220 MCG/IH INHALER IH SCH (15:23)
[2017-03-09] MEDS ORDERED: ACETAMINOPHEN 1000 MG/100 ML VIAL (NON FORMULARY) IVPB ONE (16:06)
[2017-03-09] MEDS ORDERED: HYDROmorphone HCL CARPU-JECT 1 MG/1 ML DISP.SYRIN IVPUSH ONE (20:49)
[2017-03-09] MEDS ORDERED: HYDROmorphone HCL CARPU-JECT 1 MG/1 ML DISP.SYRIN ONE (20:55)
[2017-03-09] MEDS: DOXEPIN HCL 25 MG CAPSULE PO SCH (22:33)
[2017-03-10] MEDS ORDERED: HYDROmorphone HCL CARPU-JECT 1 MG/1 ML DISP.SYRIN ONE ×4 (00:14→21:51)
[2017-03-10] MEDS: DEXAMETHASONE SOD PHOSPHATE 10 MG/1 ML VIAL IVPUSH SCH ×3 (01:00→17:07)
[2017-03-10] MEDS: HYDROmorphone HCL CARPU-JECT 1 MG/1 ML DISP.SYRIN IVPUSH PRN ×3 (01:00→22:02)
[2017-03-10] MEDS: dilTIAZem HCL 50 MG/10 ML - 10 ML VIAL IVPUSH SCH ×4 (01:00→17:18)
[2017-03-10] MEDS ORDERED: HEMOQUE TEST 1 EACH EACH ONE (05:25)
[2017-03-10] MEDS: HEPARIN NA (PORCINE) 5,000 UNITS/ML 1ML VIAL SQ SCH ×3 (05:45→21:58)
[2017-03-10] MEDS: BACLOFEN 10 MG TABLET (FP) PO SCH ×3 (05:46→21:58)
[2017-03-10] MEDS: METOPROLOL TARTRATE 25 MG TABLET (FP) PO SCH ×3 (05:46→21:58)
[2017-03-10] MEDS: GABAPENTIN 300 MG CAPSULE (FP) PO SCH ×3 (05:46→22:00)
[2017-03-10] MEDS: NYSTATIN 500,000 UNITS/5 ML SUSPENSION PO SCH ×4 (05:46→17:07)
[2017-03-10] MEDS: INSULIN SLIDING SCALE (NOVOLOG) 1 VIAL SQ SCH ×4 (06:07→22:00)
[2017-03-10] MEDS: LEVOTHYROXINE NA 25 MCG TABLET (FP) PO SCH (06:07)
[2017-03-10] MEDS: INSULIN DETEMIR 100 UNITS/ML MDV SQ SCH ×2 (06:07→16:44)
[2017-03-10] MEDS: ALBUTEROL SO4 2.5/IPRATROPIUM 0.5 INH SOL 3 ML VIAL.NEB. NEB SCH ×4 (06:29→23:00)
[2017-03-10 06:32] LABS: MCH 26.4 pg (25.7-33.7); MCHC 32.7 g/dl (32.0-36.0); MEAN CELL VOLUME 80.7 fl (80-96); MEAN PLT VOLUME 8.6 fl (7.5-11.1); PLATELET COUNT 220 K/MM3 (134-434); RDW 17.6 % (11.6-15.6); WHITE BLOOD COUNT 10.8 K/mm3 (4.0-10.0)
[2017-03-10 06:51] LABS: ALBUMIN 2.5 g/dl (3.4-5.0); ALK PHOS 95 U/L (45-117); ANION GAP 9 (8-16); BILIRUBIN,TOTAL 0.4 mg/dL (0.2-1.0); CALCIUM 7.9 mg/dL (8.5-10.1); CO2 33 mmol/L (21-32); CREATININE 0.3 mg/dL (0.55-1.02); GLUCOSE,RANDOM 95 mg/dL (74-106); SGOT/AST 14 U/L (15-37); SGPT/ALT 60 U/L (12-78); TOT PROT 5.7 g/dl (6.4-8.2)
--- NOTE | 2017-03-10 06:51 | PN ---
Physical Exam: SUBJECTIVE: Patient seen and examined. Able to write down her questions/needs. Asking for a swallow evaluation. OBJECTIVE: Patient improving, tolerating bipap Awake alert, asking for a swallow eval. hemodynamically stable Vital Signs Period Temp Pulse Resp BP Sys/Dan Pulse Ox Last 24 Hr 98.2 F-99.5 F 78-106 16-24 126-176/80-118 96-100 GENERAL: The patient is awake, alert, now on bipap HEAD: Normal with no signs of trauma. EYES: PERRL, extraocular movements intact, sclera anicteric, conjunctiva clear. No ptosis. ENT: Ears normal, nares patent, oropharynx clear without exudates, moist mucous membranes. NECK: Trachea midline, full range of motion, supple. LUNGS: expiratory wheezing, rhonchi on anterior lungs HEART: sinus tachycardia 101. ABDOMEN: no abdominal pain, non distended, + bowel sounds EXTREMITIES: well-perfused, no edema. NEUROLOGICAL: intubated, gait not observed. PSYCH: Normal mood, normal affect. SKIN: Warm, dry, normal turgor, no rashes or lesions noted Laboratory Results - last 24 hr 03/08/17 03/09/17 03/09/17 16:53 05:45 05:45 WBC RBC Hgb Hct MCV MCHC RDW Plt Count MPV Neutrophils % 97.0 H Lymphocytes % 2.0 L Monocytes % 1.0 L Eosinophils % Basophils % Differential Comment Manual diff done Platelet Estimate Adequate Puncture Site ABG pH ABG pCO2 at Pt Temp ABG pO2 at Pt Temp ABG HCO3 ABG O2 Sat (Measured) ABG O2 Content ABG Base Excess Francis Test O2 Delivery Device Oxygen Flow Rate Vent Mode Vent Rate Mechanical Rate PEEP Pressure Support Vent Sodium 145 Potassium 3.8 Chloride 108 H Carbon Dioxide 27 Anion Gap 10 BUN 22 H Creatinine 0.5 L D Creat Clearance w eGFR > 60 POC Glucometer [phone] Random Glucose 228 H D Calcium 7.5 L Phosphorus 3.0 Magnesium 2.2 Total Bilirubin 0.3 D AST 13 L D ALT 62 Alkaline Phosphatase 82 Total Protein 5.1 L Albumin 2.1 L 03/09/17 03/09/17 03/09/17 07:20 12:50 18:27 WBC RBC Hgb Hct MCV MCHC RDW Plt Count MPV Neutrophils % Lymphocytes % Monocytes % Eosinophils % Basophils % Differential Comment Platelet Estimate Puncture Site Right radial ABG pH 7.37 ABG pCO2 at Pt Temp 42.8 ABG pO2 at Pt Temp 176.0 H* ABG HCO3 24.1 ABG O2 Sat (Measured) 99.7 H* ABG O2 Content 10.7 L ABG Base Excess -0.6 Francis Test Positive O2 Delivery Device Vent Oxygen Flow Rate 35 Vent Mode A/c Vent Rate 12 Mechanical Rate Yes PEEP 5.0 Pressure Support Vent 350 Sodium Potassium Chloride Carbon Dioxide Anion Gap BUN Creatinine Creat Clearance w eGFR POC Glucometer 144.80038 118.87868 Random Glucose Calcium Phosphorus Magnesium Total Bilirubin AST ALT Alkaline Phosphatase Total Protein Albumin 03/09/17 03/10/17 22:25 05:30 WBC 10.8 H RBC 3.03 L Hgb 8.0 L Hct 24.5 L MCV 80.7 MCHC 32.7 RDW 17.6 H Plt Count 220 MPV 8.6 Neutrophils % 92.5 H Lymphocytes % 4.2 L D Monocytes % 3.2 L D Eosinophils % 0.0 Basophils % 0.1 Differential Comment Platelet Estimate Puncture Site ABG pH ABG pCO2 at Pt Temp ABG pO2 at Pt Temp ABG HCO3 ABG O2 Sat (Measured) ABG O2 Content ABG Base Excess Francis Test O2 Delivery Device Oxygen Flow Rate Vent Mode Vent Rate Mechanical Rate PEEP Pressure Support Vent Sodium Potassium Chloride Carbon Dioxide Anion Gap BUN Creatinine Creat Clearance w eGFR POC Glucometer 115.95962 Random Glucose Calcium Phosphorus Magnesium Total Bilirubin AST ALT Alkaline Phosphatase Total Protein Albumin Active Medications Generic Name Dose Route Start Last Admin Trade Name Freq PRN Reason Stop Dose Admin Acetaminophen 1,000 mg 02/26/17 20:20 Tylenol - PO Q6H PRN PAIN Albuterol/Ipratropium 1 amp 03/03/17 06:00 03/10/17 06:29 Duoneb - NEB 1 amp QIDR EMMY Administration Baclofen 20 mg 02/23/17 14:00 03/10/17 05:46 Lioresal - PO Not Given TID EMMY Budesonide/Formoterol Fumarate 2 puff 02/23/17 10:00 03/09/17 22:34 Symbicort 160/4.5mcg - IH 2 puff BID EMMY Administration Cholecalciferol 2,000 unit 02/24/17 10:00 03/09/17 09:07 Vitamin D3 - PO 2,000 unit DAILY EMMY Administration Dexamethasone Sodium Phosphate 6 mg 03/09/17 11:07 03/10/17 01:00 Decadron Injection - IVPUSH 6 mg Q8H-IV EMMY Administration Diltiazem HCl 10 mg 03/09/17 12:15 03/10/17 05:46 Cardizem Injection - IVPUSH 10 mg Q6H EMMY Administration Diphenhydramine HCl 25 mg 02/23/17 17:32 Benadryl Oral Solution - PO Q4H PRN FOR ITCHING Docusate Sodium 100 mg 02/26/17 20:19 02/26/17 21:49 Colace - PO 100 mg BID PRN Administration CONSTIPATION Doxepin HCl 25 mg 02/23/17 22:00 03/09/17 22:33 Sinequan - PO Not Given HS EMMY Eletriptan 40 mg 02/24/17 10:38 03/02/17 10:54 Relpax - PO 40 mg Q6H PRN Administration HEADACHE Gabapentin 300 mg 02/23/17 14:00 03/10/17 05:46 Neurontin - PO Not Given TID EMMY Guaifenesin 600 mg 02/26/17 22:00 03/09/17 22:33 Mucinex - PO Not Given BID EMMY Guaifenesin 10 ml 02/26/17 17:39 02/28/17 05:52 Robitussin - PO 10 ml Q6H PRN Administration COUGH Heparin Sodium (Porcine) 5,000 unit 02/23/17 22:00 03/10/17 05:45 Heparin - SQ 5,000 unit TID EMMY Administration Hydromorphone HCl 0.5 mg 03/09/17 23:13 03/10/17 05:06 Dilaudid Injection - IVPUSH 03/10/17 07:14 0.5 mg Q4H PRN Administration PAIN LEVEL 6-10 Sodium Chloride 1,000 mls @ 75 mls/hr 03/05/17 08:30 03/09/17 12:58 Normal Saline - IV 75 mls/hr ASDIR EMMY Administration Fentanyl 500 mcg/ Dextrose 100 mls @ 5 mls/hr 03/05/17 09:00 03/09/17 09:24 IJ Not Given TITR EMMY 25 MCG/HR Insulin Aspart 1 vial 03/03/17 11:00 03/10/17 06:07 Novolog Vial Sliding Scale - SQ Not Given ACHS [facility] Protocol Insulin Detemir 5 units 03/05/17 16:30 03/10/17 06:07 Levemir Vial SQ 5 units BIDI EMMY Administration Levothyroxine Sodium 25 mcg 02/23/17 10:00 03/10/17 06:07 Synthroid - PO Not Given DAILY@0700 [facility] Lidocaine 1 patch 03/04/17 10:00 03/09/17 12:08 Lidoderm Patch - TP Not Given DAILY EMMY Metoprolol Tartrate 25 mg 03/03/17 14:00 03/10/17 05:46 Lopressor - PO Not Given TID EMMY Mometasone Furoate 2 puff 03/02/17 16:45 03/09/17 15:23 Asmanex 220mcg - IH 2 puff DAILY EMMY Administration Multi-Ingredient Ointment 1 applic 02/24/17 10:30 03/09/17 22:34 Zinc Oxide TP 1 applic BID EMMY Administration Multivitamins/Minerals/Vitamin C 1 tab 02/23/17 10:00 03/09/17 09:07 Tab-A-Vit - PO 1 tab DAILY EMMY Administration Vortioxetine ( 1 each 02/25/17 08:00 03/09/17 12:20 Trintellix) 10 Mg PO Not Given Tablet (Pt's Own) DAILY@0800 [facility] Nystatin 500,000 units 02/27/17 18:00 03/10/17 05:46 Nystatin Oral Suspension - PO Not Given Q6HPO EMMY Ondansetron HCl 4 mg 02/23/17 08:18 03/09/17 15:00 Zofran Injection IVPB 4 mg Q6H PRN Administration NAUSEA Pancrelipase 3 cap 02/24/17 12:00 03/09/17 18:[address] 6,000 Units Capsule PO Not Given TIDCM [facility] Pantoprazole Sodium 40 mg 02/24/17 11:30 03/09/17 09:07 Protonix - PO 40 mg DAILY EMMY Administration Roflumilast 500 mcg 02/23/17 10:00 03/09/17 09:17 Daliresp - PO 500 mcg DAILY EMMY Administration Sodium Chloride 2 spray 03/04/17 14:00 [place] - NS TID PRN NASAL CONGESTION ASSESSMENT/PLAN: Patient is a 51 year old female with a past medical history of proximal atrial fib, hypertension, diabetes, COPD (home oxygen dependent), asthma, tracheostomy , uterine cancer, anxiety, depression and bipolar disorder. She presents to the ED on 02/23/2017 with nausea, diarrhea, productive cough, and left sided body pain since yesterday. She states she is currently on doxycycline, but reports having left lower sided body aches and diarrhea since taking this medication. She reports her cough has been persistent and productive of yellow sputum. She states the cough keeps her up at night. She was admitted to [facility] with c/o of abdominal pain, diarrhea and acute COPD exacerbation. Pulmonary: Respiratory Failure secondary to COPD exacerbation - improving Assessment/Plan: On bipap and so far tolerating same On Decadron 6mg q8, Aspiration precautions Pulmonary following Goal is to keep spo2 >90% Symbicort, duonebs prn Continue to monitor respiratory status ID: Leukocytosis - improving Assessment/Plan: Monitor off antibiotics WBC 10.8 afebrile, hemodynamically stable monitor for signs of infection Psyche Bipolar/anxiety/depression Assessment/Plan: continue psyche home meds Endocrine: Diabetes mellitus - chronic Assessment/Plan: Novolog sliding scale Monitor BGMs while on steroids Cardiology: Proxy Atrial Fib Currently in Sinus rhythm - periods of sinus tachycardia On lopressor PO, Cardizem FEN Fluid: NS @ 75 cc/hr Electrolytes: Monitor labs Nutrition: NPO - has NGT Prophylaxis DVT: SCD, heparin SQ GI: Protonix Swallow evaluation when patient more stable Disposition: Requires ICU monitoring. Full Code. Visit type - Emergency Visit Emergency Visit: Yes ED Registration Date: 02/24/17 Care time: The patient presented to the Emergency Department on the above date and was hospitalized for further evaluation of their emergent condition. - New Patient This patient is new to me today: No - Critical Care Critical Care patient: Yes Total Critical Care Time (in minutes): 35 Critical Care Statement: The care of this patient involved high complexity decision making to prevent further life threatening deterioration of the patient 's condition and/or to evalute & treat vital organ system(s) failure or risk of failure. - Discharge Referral [facility]erred to [facility] No
[2017-03-10] MEDS: KCL 10 MEQ IVPB 100 ML IVPB SCH ×5 (08:04→09:49)
[2017-03-10] MEDS: LIPASE/PROTEASE/AMYLASE 6,000 UNIT CAPSULE PO SCH ×3 (08:06→16:43)
[2017-03-10] MEDS: VORTIOXETINE 10 MG PO SCH (08:06)
[2017-03-10 09:08] LABS: METAMYELOCYTE 2 % (0-2); PLATELET ESTIMATE ADEQUATE (NORMAL)
[2017-03-10] MEDS: ROFLUMILAST 500 MCG TABLET PO SCH (09:27)
[2017-03-10] MEDS: PANTOPRAZOLE 40 MG TABLET (FP) PO SCH (09:30)
[2017-03-10] MEDS: guaiFENesin 600 MG TABLET.ER (FP) PO SCH ×2 (09:30→21:59)
[2017-03-10] MEDS: LIDOCAINE 5% TOPICAL PATCH TP SCH ×2 (09:30→14:15)
[2017-03-10] MEDS: ZINC OXIDE 20% TOPICAL OINTMENT 30 GM TUBE TP SCH ×2 (09:31→22:01)
[2017-03-10] MEDS: CHOLECALCIFEROL (VITAMIN D3) 1,000 UNIT TABLET (FP) PO SCH (09:31)
[2017-03-10] MEDS: MULTIVITAMINS (DAILY MVI) TABLET (FP) PO SCH (09:31)
[2017-03-10] MEDS: BUDESONIDE/FORMETEROL FUMARATE 160/4.5 mcg INHALER IH SCH ×2 (09:42→22:01)
[2017-03-10] MEDS: MOMETASONE FUROATE 220 MCG/IH INHALER IH SCH (09:42)
[2017-03-10] MEDS ORDERED: HYDROmorphone HCL CARPU-JECT 1 MG/1 ML DISP.SYRIN IVPUSH ONE ×3 (11:20→18:54)
--- NOTE | 2017-03-10 12:01 | PN ---
Teaching Attending Note Name of Resident: Nabor Weldon ATTENDING PHYSICIAN STATEMENT I saw and evaluated the patient. I reviewed the resident's note and discussed the case with the resident. I agree with the resident's findings and plan as documented. SUBJECTIVE: Pt seen and examined in the ICU. Extubated to BiPAP yesterday, remained on BiPAP overnight. Anxious about coming off. OBJECTIVE: Last Vital Signs Temp Pulse Resp BP Pulse Ox 97.6 F 97 H 19 140/87 97 03/10/17 10:00 03/10/17 10:00 03/10/17 10:00 03/10/17 10:00 03/10/17 10:27 Intake & Output 03/07/17 03/08/17 03/09/17 03/10/17 23:59 23:59 23:59 23:59 Intake Total 1570 1150 2291.8 900 Output Total 1125 1500 3750 1100 Balance 445 -350 -1458.2 -200 Weight 132 lb 8 oz 135 lb 7 oz 141 lb 15.643 oz 140 lb 10.479 oz Gen: anxious, mildly tachypneic Heart: RRR Lung: scattered rhonchi Abd: soft, nontender Ext: UE edema CBC, BMP 03/10/17 05:30 03/10/17 05:30 Active Medications Acetaminophen (Tylenol -) 1,000 mg PO Q6H PRN PRN Reason: PAIN Albuterol/Ipratropium (Duoneb -) 1 amp NEB QIDR [facility] Last Admin: 03/10/17 06:29 Dose: 1 amp Baclofen (Lioresal -) 20 mg PO TID [facility] Last Admin: 03/10/17 05:46 Dose: Not Given Budesonide/Formoterol Fumarate (Symbicort 160/4.5mcg -) 2 puff IH BID [facility] Last Admin: 03/10/17 09:42 Dose: 2 puff Cholecalciferol (Vitamin D3 -) 2,000 unit PO DAILY [facility] Last Admin: 03/10/17 09:31 Dose: Not Given Dexamethasone Sodium Phosphate (Decadron Injection -) 6 mg IVPUSH Q8H-IV [facility] Last Admin: 03/10/17 09:30 Dose: 6 mg Diltiazem HCl (Cardizem Injection -) 10 mg IVPUSH Q6H [facility] Last Admin: 03/10/17 05:46 Dose: 10 mg Diphenhydramine HCl (Benadryl Oral Solution -) 25 mg PO Q4H PRN PRN Reason: FOR ITCHING Docusate Sodium (Colace -) 100 mg PO BID PRN PRN Reason: CONSTIPATION Last Admin: 02/26/17 21:49 Dose: 100 mg Doxepin HCl (Sinequan -) 25 mg PO HS [facility] Last Admin: 03/09/17 22:33 Dose: Not Given Eletriptan (Relpax -) 40 mg PO Q6H PRN PRN Reason: HEADACHE Last Admin: 03/02/17 10:54 Dose: 40 mg Gabapentin (Neurontin -) 300 mg PO TID [facility] Last Admin: 03/10/17 05:46 Dose: Not Given Guaifenesin (Mucinex -) 600 mg PO BID [facility] Last Admin: 03/10/17 09:30 Dose: Not Given Guaifenesin (Robitussin -) 10 ml PO Q6H PRN PRN Reason: COUGH Last Admin: 02/28/17 05:52 Dose: 10 ml Heparin Sodium (Porcine) (Heparin -) 5,000 unit SQ TID [facility] Last Admin: 03/10/17 05:45 Dose: 5,000 unit Insulin Aspart (Novolog Vial Sliding Scale -) 1 vial SQ ACHS [facility] PRN Reason: Protocol Last Admin: 03/10/17 11:12 Dose: Not Given Insulin Detemir (Levemir Vial) 5 units SQ BIDI [facility] Last Admin: 03/10/17 06:07 Dose: 5 units Levothyroxine Sodium (Synthroid -) 25 mcg PO DAILY@0700 [facility] Last Admin: 03/10/17 06:07 Dose: Not Given Lidocaine (Lidoderm Patch -) 1 patch TP DAILY [facility] Last Admin: 03/10/17 09:30 Dose: Not Given Metoprolol Tartrate (Lopressor -) 25 mg PO TID [facility] Last Admin: 03/10/17 05:46 Dose: Not Given Mometasone Furoate (Asmanex 220mcg -) 2 puff IH DAILY [facility] Last Admin: 03/10/17 09:42 Dose: 2 puff Multi-Ingredient Ointment (Zinc Oxide) 1 applic TP BID [facility] Last Admin: 03/10/17 09:31 Dose: Not Given Multivitamins/Minerals/Vitamin C (Tab-A-Vit -) 1 tab PO DAILY [facility] Last Admin: 03/10/17 09:31 Dose: Not Given Vortioxetine ( Trintellix) 10 Mg Tablet (Pt's Own) 1 each PO DAILY@0800 [facility] Last Admin: 03/10/17 08:06 Dose: Not Given Nystatin (Nystatin Oral Suspension -) 500,000 units PO Q6HPO [facility] Last Admin: 03/10/17 05:46 Dose: Not Given Ondansetron HCl (Zofran Injection) 4 mg IVPB Q6H PRN PRN Reason: NAUSEA Last Admin: 03/09/17 15:00 Dose: 4 mg Pancrelipase (Creon Dr 6,000 Units Capsule) 3 cap PO TIDCM [facility] Last Admin: 03/10/17 08:06 Dose: Not Given Pantoprazole Sodium (Protonix -) 40 mg PO DAILY [facility] Last Admin: 03/10/17 09:30 Dose: Not Given Roflumilast (Daliresp -) 500 mcg PO DAILY [facility] Last Admin: 03/10/17 09:27 Dose: Not Given Sodium Chloride ([place] Nasal [place] -) 2 spray NS TID PRN PRN Reason: NASAL CONGESTION ASSESSMENT AND PLAN: Acute on Chronic Hypoxic and Hypercapneic Respiratory Failure Acute COPD/Asthma Exacerbation r/o Pneumonia Atrial Fibrillation HTN Chronic Pain Syndrome/Opiate Dependent - s/p antibiotics - continue decadron at same dose - inhaled bronchodilators standing and PRN - monitor H/H - can attempt ventimask 35% - titrate FiO2 to keep SpO2 >90% - rate control - DVT/GI prophylaxis - continue ICU monitoring for tenuous respiratory status critical care time spent reviewing chart, evaluating patient and formulating plan 35 min
--- NOTE | 2017-03-10 12:13 | PN ---
Addendum entered and electronically signed by Nabor Weldon RES 03/10/17 15:09 : patient agreed to remove bipap and is maintaining a saturation of 100 on ventuary mask. Original Note: Physical Exam: SUBJECTIVE: Patient seen and examined Patient seen and examined. Patient is on bipap. Patient is afriad of removing her biapap and wants to continue with it for today. Patient has anxiety disorder. Patient was complaining of pain in her back for which dilaudid was given she also have hypokalemia for whick kcl is given iv and will repeat lab in evening. will stop IV fluid as patient has b/l rales. Patient has been explained regarding a trial to remove bipap but she refused and wants to continue with it. OBJECTIVE: Vital Signs Period Temp Pulse Resp BP Sys/Dan Pulse Ox Last 24 Hr 97.6 F-99.5 F 78-106 16-22 126-173/80-100 96-100 GENERAL: conscious and oriented HEAD: Normal with no signs of trauma. EYES: PERRL, ENT: Ears normal, nares patent, moist mucous membranes. NECK: Trachea midline, full range of motion, supple. LUNGS: Breath sounds equal, b/l mild rales at base HEART: Regular rate, sis2 normal . ABDOMEN: Soft, nontender, nondistended, normoactive bowel sounds, no guarding, no rebound, EXTREMITIES: 2+ pulses, warm, no edema. SKIN: Warm, dry, Laboratory Results - last 24 hr 03/09/17 03/09/17 03/09/17 12:50 18:27 22:25 WBC RBC Hgb Hct MCV MCHC RDW Plt Count MPV Neutrophils % Lymphocytes % Monocytes % Eosinophils % Basophils % Metamyelocytes Myelocytes Differential Comment Platelet Estimate RBC Morphology Sodium Potassium Chloride Carbon Dioxide Anion Gap BUN Creatinine Creat Clearance w eGFR POC Glucometer 144.19235 118.13096 115.51183 Random Glucose Calcium Total Bilirubin AST ALT Alkaline Phosphatase Total Protein Albumin 03/10/17 03/10/17 03/10/17 05:28 05:30 05:30 WBC 10.8 H RBC 3.03 L Hgb 8.0 L Hct 24.5 L MCV 80.7 MCHC 32.7 RDW 17.6 H Plt Count 220 MPV 8.6 Neutrophils % 89.0 H Lymphocytes % 7.0 L D Monocytes % 1.0 L Eosinophils % Drop Board Worker Basophils % Drop Board Worker Metamyelocytes 2 D Myelocytes 1 Differential Comment Manual diff done Platelet Estimate Adequate RBC Morphology Sodium 142 Potassium 3.4 L Chloride 100 Carbon Dioxide 33 H D Anion Gap 9 BUN 14 D Creatinine 0.3 L D Creat Clearance w eGFR > 60 POC Glucometer [phone] Random Glucose 95 D Calcium 7.9 L Total Bilirubin 0.4 D AST 14 L ALT 60 Alkaline Phosphatase 95 Total Protein 5.7 L Albumin 2.5 L 03/10/17 11:11 WBC RBC Hgb Hct MCV MCHC RDW Plt Count MPV Neutrophils % Lymphocytes % Monocytes % Eosinophils % Basophils % Metamyelocytes Myelocytes Differential Comment Platelet Estimate RBC Morphology Sodium Potassium Chloride Carbon Dioxide Anion Gap BUN Creatinine Creat Clearance w eGFR POC Glucometer [phone] Random Glucose Calcium Total Bilirubin AST ALT Alkaline Phosphatase Total Protein Albumin Active Medications Generic Name Dose Route Start Last Admin Trade Name Freq PRN Reason Stop Dose Admin Acetaminophen 1,000 mg 02/26/17 20:20 Tylenol - PO Q6H PRN PAIN Albuterol/Ipratropium 1 amp 03/03/17 06:00 03/10/17 11:05 Duoneb - NEB 1 amp QIDR [facility] Administration Baclofen 20 mg 02/23/17 14:00 03/10/17 05:46 Lioresal - PO Not Given TID [facility] Budesonide/Formoterol Fumarate 2 puff 02/23/17 10:00 03/10/17 09:42 Symbicort 160/4.5mcg - IH 2 puff BID [facility] Administration Cholecalciferol 2,000 unit 02/24/17 10:00 03/10/17 09:31 Vitamin D3 - PO Not Given DAILY [facility] Dexamethasone Sodium Phosphate 6 mg 03/09/17 11:07 03/10/17 09:30 Decadron Injection - IVPUSH 6 mg Q8H-IV [facility] Administration Diltiazem HCl 10 mg 03/09/17 12:15 03/10/17 05:46 Cardizem Injection - IVPUSH 10 mg Q6H [facility] Administration Diphenhydramine HCl 25 mg 02/23/17 17:32 Benadryl Oral Solution - PO Q4H PRN FOR ITCHING Docusate Sodium 100 mg 02/26/17 20:19 02/26/17 21:49 Colace - PO 100 mg BID PRN Administration CONSTIPATION Doxepin HCl 25 mg 02/23/17 22:00 03/09/17 22:33 Sinequan - PO Not Given HS [facility] Eletriptan 40 mg 02/24/17 10:38 03/02/17 10:54 Relpax - PO 40 mg Q6H PRN Administration HEADACHE Gabapentin 300 mg 02/23/17 14:00 03/10/17 05:46 Neurontin - PO Not Given TID [facility] Guaifenesin 600 mg 02/26/17 22:00 03/10/17 09:30 Mucinex - PO Not Given BID [facility] Guaifenesin 10 ml 02/26/17 17:39 02/28/17 05:52 Robitussin - PO 10 ml Q6H PRN Administration COUGH Heparin Sodium (Porcine) 5,000 unit 02/23/17 22:00 03/10/17 05:45 Heparin - SQ 5,000 unit TID [facility] Administration Insulin Aspart 1 vial 03/03/17 11:00 03/10/17 11:12 Novolog Vial Sliding Scale - SQ Not Given ACHS [facility] Protocol Insulin Detemir 5 units 03/05/17 16:30 03/10/17 06:07 Levemir Vial SQ 5 units BIDI [facility] Administration Levothyroxine Sodium 25 mcg 02/23/17 10:00 03/10/17 06:07 Synthroid - PO Not Given DAILY@0700 [facility] Lidocaine 1 patch 03/04/17 10:00 03/10/17 09:30 Lidoderm Patch - TP Not Given DAILY [facility] Metoprolol Tartrate 25 mg 03/03/17 14:00 03/10/17 05:46 Lopressor - PO Not Given TID [facility] Mometasone Furoate 2 puff 03/02/17 16:45 03/10/17 09:42 Asmanex 220mcg - IH 2 puff DAILY [facility] Administration Multi-Ingredient Ointment 1 applic 02/24/17 10:30 03/10/17 09:31 Zinc Oxide TP Not Given BID [facility] Multivitamins/Minerals/Vitamin C 1 tab 02/23/17 10:00 03/10/17 09:31 Tab-A-Vit - PO Not Given DAILY [facility] Vortioxetine ( 1 each 02/25/17 08:00 03/10/17 08:06 Trintellix) 10 Mg PO Not Given Tablet (Pt's Own) DAILY@0800 [facility] Nystatin 500,000 units 02/27/17 18:00 03/10/17 12:03 Nystatin Oral Suspension - PO Not Given Q6HPO [facility] Ondansetron HCl 4 mg 02/23/17 08:18 03/09/17 15:00 Zofran Injection IVPB 4 mg Q6H PRN Administration NAUSEA Pancrelipase 3 cap 02/24/17 12:00 03/10/17 12:[address] 6,000 Units Capsule PO Not Given TIDCM [facility] Pantoprazole Sodium 40 mg 02/24/17 11:30 03/10/17 09:30 Protonix - PO Not Given DAILY [facility] Roflumilast 500 mcg 02/23/17 10:00 03/10/17 09:27 Daliresp - PO Not Given DAILY [facility] Sodium Chloride 2 spray 03/04/17 14:00 [place] Nasal [place] - NS TID PRN NASAL CONGESTION ASSESSMENT/PLAN: Hypercapnic Respiratory Failure secondary to copd excerbation -on bipap 06/05 rr16 fio2 35 -Cont Albuterol nebs and Atrovent ne - decadron to 6mg q8 -Aspiration precautions - monitor vitals - keep spo2 >90 :Leukocytosis: HCAP pseudomonas wbc decreased to 10.8 completed a course of antibiotic zosyn for 7 days afebrile Afib, HTN; hypertensive post arrest; troponin wnl continue with metoprolol tartrate and cardiazem Hr 92 - Hypokalemia improved k 3.4 will give her kcl IV Elevated AST/ALT/Alk phos - improving - follow lft Neuro/Psyche: Anxiety, depression, chronic pain -Cont standing anti depressant -Cont neurontin and baclofen for chronic pain Fluid : off IV fluid electrolyte : repeat K in evening nutrition; NPo as patient is on bipap Proph: Hep SQ/PPI gi pro : on protonix dispo : admit in icu Visit type - Emergency Visit Emergency Visit: Yes ED Registration Date: 02/24/17 Care time: The patient presented to the Emergency Department on the above date and was hospitalized for further evaluation of their emergent condition. - New Patient This patient is new to me today: No - Critical Care Critical Care patient: Yes Total Critical Care Time (in minutes): 45 Critical Care Statement: The care of this patient involved high complexity decision making to prevent further life threatening deterioration of the patient 's condition and/or to evalute & treat vital organ system(s) failure or risk of failure.
[2017-03-10] MEDS ORDERED: PT OWN MED DRAWER 7, Y5N ONE (21:52)
[2017-03-10] MEDS: DOXEPIN HCL 25 MG CAPSULE PO SCH (22:01)
[2017-03-11] MEDS: dilTIAZem HCL 50 MG/10 ML - 10 ML VIAL IVPUSH SCH ×4 (00:30→18:14)
[2017-03-11] MEDS: DEXAMETHASONE SOD PHOSPHATE 10 MG/1 ML VIAL IVPUSH SCH ×3 (02:21→17:08)
[2017-03-11] MEDS: HYDROmorphone HCL CARPU-JECT 1 MG/1 ML DISP.SYRIN IVPUSH PRN ×6 (02:21→22:34)
[2017-03-11] MEDS: METOPROLOL TARTRATE 25 MG TABLET (FP) PO SCH ×3 (05:57→22:33)
[2017-03-11] MEDS: HEPARIN NA (PORCINE) 5,000 UNITS/ML 1ML VIAL SQ SCH ×3 (05:57→22:32)
[2017-03-11] MEDS: BACLOFEN 10 MG TABLET (FP) PO SCH ×3 (05:57→22:33)
[2017-03-11] MEDS: NYSTATIN 500,000 UNITS/5 ML SUSPENSION PO SCH ×4 (05:58→17:08)
[2017-03-11] MEDS: GABAPENTIN 300 MG CAPSULE (FP) PO SCH ×3 (05:58→22:33)
[2017-03-11] MEDS: INSULIN DETEMIR 100 UNITS/ML MDV SQ SCH ×2 (06:07→17:07)
[2017-03-11] MEDS: INSULIN SLIDING SCALE (NOVOLOG) 1 VIAL SQ SCH ×4 (06:07→22:33)
[2017-03-11] MEDS: LEVOTHYROXINE NA 25 MCG TABLET (FP) PO SCH (06:07)
[2017-03-11 06:15] LABS: BASOPHIL 0.1 % (0-2.0); MCH 27.1 pg (25.7-33.7); MEAN CELL VOLUME 79.7 fl (80-96); MEAN PLT VOLUME 8.6 fl (7.5-11.1); NEUTROPHILS 95.9 % (42.8-82.8); PLATELET COUNT 241 K/MM3 (134-434); RDW 18.1 % (11.6-15.6); WHITE BLOOD COUNT 13.8 K/mm3 (4.0-10.0)
[2017-03-11] MEDS: ALBUTEROL SO4 2.5/IPRATROPIUM 0.5 INH SOL 3 ML VIAL.NEB. NEB SCH ×4 (06:49→23:21)
[2017-03-11 06:52] LABS: COCKROFT - GAULT 160.65; CREATININE 0.4 mg/dL (0.55-1.02)
[2017-03-11] MEDS ORDERED: PT OWN MED DRAWER 7, Y5N ONE ×3 (09:11→22:15)
[2017-03-11] MEDS: LIPASE/PROTEASE/AMYLASE 6,000 UNIT CAPSULE PO SCH ×3 (09:59→16:53)
[2017-03-11] MEDS: MOMETASONE FUROATE 220 MCG/IH INHALER IH SCH (10:01)
[2017-03-11] MEDS: ROFLUMILAST 500 MCG TABLET PO SCH (10:02)
[2017-03-11] MEDS: LIDOCAINE 5% TOPICAL PATCH TP SCH (10:02)
[2017-03-11] MEDS: guaiFENesin 600 MG TABLET.ER (FP) PO SCH ×2 (10:03→22:33)
[2017-03-11] MEDS: BUDESONIDE/FORMETEROL FUMARATE 160/4.5 mcg INHALER IH SCH ×2 (10:04→22:34)
[2017-03-11] MEDS: PANTOPRAZOLE 40 MG TABLET (FP) PO SCH (10:04)
[2017-03-11] MEDS: MULTIVITAMINS (DAILY MVI) TABLET (FP) PO SCH (10:05)
[2017-03-11] MEDS: CHOLECALCIFEROL (VITAMIN D3) 1,000 UNIT TABLET (FP) PO SCH (10:06)
[2017-03-11] MEDS: ZINC OXIDE 20% TOPICAL OINTMENT 30 GM TUBE TP SCH ×2 (10:07→22:34)
--- NOTE | 2017-03-11 10:54 | PN ---
Physical Exam: SUBJECTIVE: Patient seen and examined. She is stable on VM, to be put on NC 2L. Pt states she is afraid of the chair she does not want to be pushed. OBJECTIVE: Events: - Bipap overnight, well tolerated Vital Signs Period Temp Pulse Resp BP Sys/Dan Pulse Ox Last 24 Hr 97.7 F-98.6 F 74-108 11-24 105-151/56-98 97-100 PE Neuro: alert, awake, cn 2-12intact, LE weakness Pulm: bilateral rhonchi, mild wheezing, +NC CV: s1 s2 rrr no mrg Abd: s nt nd + bs : patterson clear yellow urine Ext: warm, no le edema Laboratory Results - last 24 hr 03/10/17 03/11/17 03/11/17 21:56 05:15 05:15 WBC 13.8 H RBC 3.16 L Hgb 8.6 L Hct 25.2 L MCV 79.7 L MCHC 34.0 RDW 18.1 H Plt Count 241 MPV 8.6 Neutrophils % 95.9 H Lymphocytes % 2.1 L D Monocytes % 1.9 L D Eosinophils % 0.0 Basophils % 0.1 Sodium 138 Potassium 3.8 Chloride 95 L Carbon Dioxide 35 H Anion Gap 8 BUN 14 Creatinine 0.4 L D POC Glucometer 176.81926 Random Glucose 124 H D Calcium 8.0 L Active Medications Generic Name Dose Route Start Last Admin Trade Name Freq PRN Reason Stop Dose Admin Acetaminophen 1,000 mg 02/26/17 20:20 03/10/17 18:04 Tylenol - PO 1,000 mg Q6H PRN Administration PAIN Albuterol/Ipratropium 1 amp 03/03/17 06:00 03/11/17 06:49 Duoneb - NEB 1 amp QIDR [facility] Administration Baclofen 20 mg 02/23/17 14:00 03/11/17 05:57 Lioresal - PO Not Given TID [facility] Budesonide/Formoterol Fumarate 2 puff 02/23/17 10:00 03/11/17 10:04 Symbicort 160/4.5mcg - IH 2 puff BID [facility] Administration Cholecalciferol 2,000 unit 02/24/17 10:00 03/11/17 10:06 Vitamin D3 - PO 2,000 unit DAILY [facility] Administration Dexamethasone Sodium Phosphate 6 mg 03/09/17 11:07 03/11/17 10:02 Decadron Injection - IVPUSH 6 mg Q8H-IV [facility] Administration Diltiazem HCl 10 mg 03/09/17 12:15 03/11/17 05:58 Cardizem Injection - IVPUSH 10 mg Q6H [facility] Administration Diphenhydramine HCl 25 mg 02/23/17 17:32 03/10/17 22:03 Benadryl Oral Solution - PO 25 mg Q4H PRN Administration FOR ITCHING Docusate Sodium 100 mg 02/26/17 20:19 02/26/17 21:49 Colace - PO 100 mg BID PRN Administration CONSTIPATION Doxepin HCl 25 mg 02/23/17 22:00 03/10/17 22:01 Sinequan - PO 25 mg HS [facility] Administration Eletriptan 40 mg 02/24/17 10:38 03/02/17 10:54 Relpax - PO 40 mg Q6H PRN Administration HEADACHE Gabapentin 300 mg 02/23/17 14:00 03/11/17 05:58 Neurontin - PO Not Given TID [facility] Guaifenesin 600 mg 02/26/17 22:00 03/11/17 10:03 Mucinex - PO 600 mg BID [facility] Administration Guaifenesin 10 ml 02/26/17 17:39 02/28/17 05:52 Robitussin - PO 10 ml Q6H PRN Administration COUGH Heparin Sodium (Porcine) 5,000 unit 02/23/17 22:00 03/11/17 05:57 Heparin - SQ 5,000 unit TID [facility] Administration Hydromorphone HCl 0.5 mg 03/10/17 21:17 03/11/17 10:14 Dilaudid Injection - IVPUSH 0.5 mg Q4H PRN Administration Pain 4-6 Insulin Aspart 1 vial 03/03/17 11:00 03/11/17 06:07 Novolog Vial Sliding Scale - SQ Not Given [facility] Protocol Insulin Detemir 5 units 03/05/17 16:30 03/11/17 06:07 Levemir Vial SQ 5 units BIDI [facility] Administration Levothyroxine Sodium 25 mcg 02/23/17 10:00 03/11/17 06:07 Synthroid - PO Not Given DAILY@0700 [facility] Lidocaine 1 patch 03/04/17 10:00 03/11/17 10:02 Lidoderm Patch - TP 1 patch DAILY [facility] Administration Metoprolol Tartrate 25 mg 03/03/17 14:00 03/11/17 05:57 Lopressor - PO Not Given TID [facility] Mometasone Furoate 2 puff 03/02/17 16:45 03/11/17 10:01 Asmanex 220mcg - IH 2 puff DAILY [facility] Administration Multi-Ingredient Ointment 1 applic 02/24/17 10:30 03/11/17 10:07 Zinc Oxide TP 1 applic BID [facility] Administration Multivitamins/Minerals/Vitamin C 1 tab 02/23/17 10:00 03/11/17 10:05 Tab-A-Vit - PO 1 tab DAILY [facility] Administration Vortioxetine ( 1 each 02/25/17 08:00 03/10/17 08:06 Trintellix) 10 Mg PO Not Given Tablet (Pt's Own) DAILY@0800 [facility] Nystatin 500,000 units 02/27/17 18:00 03/11/17 05:58 Nystatin Oral Suspension - PO Not Given Q6HPO [facility] Ondansetron HCl 4 mg 02/23/17 08:18 03/09/17 15:00 Zofran Injection IVPB 4 mg Q6H PRN Administration NAUSEA Pancrelipase 3 cap 02/24/17 12:00 03/11/17 09:[address] 6,000 Units Capsule PO 3 cap TIDCM [facility] Administration Pantoprazole Sodium 40 mg 02/24/17 11:30 03/11/17 10:04 Protonix - PO 40 mg DAILY [facility] Administration Roflumilast 500 mcg 02/23/17 10:00 03/11/17 10:02 Daliresp - PO 500 mcg DAILY [facility] Administration Sodium Chloride 2 spray 03/04/17 14:00 [place] Nasal [place] - NS TID PRN NASAL CONGESTION Assessment: 51 year old female pmhx of COPD on home O2, previous trach, Afib, HTN, anxiety, bipolar disorder and depression admitted to hospital with bronchitis and diarrhea, transferred to ICU s/p hypercarbic respiratory arrest, extubated 03/04, re intubated 03/05, extubated 03/09. Plan: 1. Acute on chroinc hypoxic and hypercapnic Respiratory Failure - Transition to 2L NC today - BiPap HS - Continue dexamethasone 6mg q8, taper tomorrow - Mucinex 600mg BID - Duonebs evelio 2. Acute COPD/Asthma exacerbation - On decadron as above - Continue Roflumilast - Symbicort BID - Asmanex daily 3. HCAP coverage d/t pseudomonas - Completed 7 days zosyn 4. AFIB - In sinus - Continue Cardizem 60mg q6 5. HTN - Lopressor 25mg TID 6. Anemia - Stable 7. DM II - Levemir 5 BID - ISS, BGM ACHS 8. Hypothroidism - Synthroid 25mg daily 9. Anxiety, depression, chronic pain - Cont standing anti depressants - Cont neurontin and baclofen for chronic pain - Caution with narcotic use low threshold for co2 retention s/p extubation 10. Nutrition - Start soft diet today 11. Physical therapy Visit type - Emergency Visit Emergency Visit: Yes ED Registration Date: 02/24/17 Care time: The patient presented to the Emergency Department on the above date and was hospitalized for further evaluation of their emergent condition. - New Patient This patient is new to me today: No - Critical Care Critical Care patient: No
[2017-03-11] MEDS ORDERED: POTASSIUM CHLORIDE ORAL LIQUID 20 MEQ/15 ML PO ONE (11:04)
--- NOTE | 2017-03-11 11:07 | PN ---
Physical Exam: SUBJECTIVE: Patient seen and examined patient was started on bipap arpound 2:00am, in morning patient was again taken on venturay mask( 35%) and she mainted a saturation of 95 %. Patient was changed to nasal canula patient diet has changed from clear liquid to soft will start tapering her steroid from tomorrow keep her on bipap in night try to get peripheral access OBJECTIVE: Vital Signs Period Temp Pulse Resp BP Sys/Dan Pulse Ox Last 24 Hr 97.7 F-98.6 F 74-108 11-24 105-151/56-98 97-100 GENERAL: conscious and oriented HEAD: Normal with no signs of trauma. EYES: PERRL, ENT: Ears normal, nares patent, moist mucous membranes. NECK: Trachea midline, full range of motion, supple. LUNGS: Breath sounds equal, b/l mild rales at base HEART: Regular rate, sis2 normal . ABDOMEN: Soft, nontender, nondistended, normoactive bowel sounds, no guarding, no rebound, EXTREMITIES: 2+ pulses, warm, no edema. SKIN: Warm, dry, Laboratory Results - last 24 hr 03/10/17 03/10/17 03/10/17 11:11 15:30 15:32 WBC RBC Hgb Hct MCV MCHC RDW Plt Count MPV Neutrophils % Lymphocytes % Monocytes % Eosinophils % Basophils % Sodium Potassium 4.4 D Chloride Carbon Dioxide Anion Gap BUN Creatinine POC Glucometer 88.58492 125.74535 Random Glucose Calcium 03/10/17 03/11/17 03/11/17 21:56 05:15 05:15 WBC 13.8 H RBC 3.16 L Hgb 8.6 L Hct 25.2 L MCV 79.7 L MCHC 34.0 RDW 18.1 H Plt Count 241 MPV 8.6 Neutrophils % 95.9 H Lymphocytes % 2.1 L D Monocytes % 1.9 L D Eosinophils % 0.0 Basophils % 0.1 Sodium 138 Potassium 3.8 Chloride 95 L Carbon Dioxide 35 H Anion Gap 8 BUN 14 Creatinine 0.4 L D POC Glucometer 176.06381 Random Glucose 124 H D Calcium 8.0 L 03/11/17 05:40 WBC RBC Hgb Hct MCV MCHC RDW Plt Count MPV Neutrophils % Lymphocytes % Monocytes % Eosinophils % Basophils % Sodium Potassium Chloride Carbon Dioxide Anion Gap BUN Creatinine POC Glucometer [phone] Random Glucose Calcium Active Medications Generic Name Dose Route Start Last Admin Trade Name Freq PRN Reason Stop Dose Admin Acetaminophen 1,000 mg 02/26/17 20:20 03/10/17 18:04 Tylenol - PO 1,000 mg Q6H PRN Administration PAIN Albuterol/Ipratropium 1 amp 03/03/17 06:00 03/11/17 06:49 Duoneb - NEB 1 amp QIDR EMMY Administration Baclofen 20 mg 02/23/17 14:00 03/11/17 05:57 Lioresal - PO Not Given TID EMMY Budesonide/Formoterol Fumarate 2 puff 02/23/17 10:00 03/11/17 10:04 Symbicort 160/4.5mcg - IH 2 puff BID EMMY Administration Cholecalciferol 2,000 unit 02/24/17 10:00 03/11/17 10:06 Vitamin D3 - PO 2,000 unit DAILY EMMY Administration Dexamethasone Sodium Phosphate 6 mg 03/09/17 11:07 03/11/17 10:02 Decadron Injection - IVPUSH 6 mg Q8H-IV EMMY Administration Diltiazem HCl 10 mg 03/09/17 12:15 03/11/17 05:58 Cardizem Injection - IVPUSH 10 mg Q6H EMMY Administration Diphenhydramine HCl 25 mg 02/23/17 17:32 03/10/17 22:03 Benadryl Oral Solution - PO 25 mg Q4H PRN Administration FOR ITCHING Docusate Sodium 100 mg 02/26/17 20:19 02/26/17 21:49 Colace - PO 100 mg BID PRN Administration CONSTIPATION Doxepin HCl 25 mg 02/23/17 22:00 03/10/17 22:01 Sinequan - PO 25 mg HS EMMY Administration Eletriptan 40 mg 02/24/17 10:38 03/02/17 10:54 Relpax - PO 40 mg Q6H PRN Administration HEADACHE Gabapentin 300 mg 02/23/17 14:00 03/11/17 05:58 Neurontin - PO Not Given TID EMMY Guaifenesin 600 mg 02/26/17 22:00 03/11/17 10:03 Mucinex - PO 600 mg BID EMMY Administration Guaifenesin 10 ml 02/26/17 17:39 02/28/17 05:52 Robitussin - PO 10 ml Q6H PRN Administration COUGH Heparin Sodium (Porcine) 5,000 unit 02/23/17 22:00 03/11/17 05:57 Heparin - SQ 5,000 unit TID EMMY Administration Hydromorphone HCl 0.5 mg 03/10/17 21:17 03/11/17 10:14 Dilaudid Injection - IVPUSH 0.5 mg Q4H PRN Administration Pain 4-6 Insulin Aspart 1 vial 03/03/17 11:00 03/11/17 10:52 Novolog Vial Sliding Scale - SQ Not Given ACHS [facility] Protocol Insulin Detemir 5 units 03/05/17 16:30 03/11/17 06:07 Levemir Vial SQ 5 units BIDI EMMY Administration Levothyroxine Sodium 25 mcg 02/23/17 10:00 03/11/17 06:07 Synthroid - PO Not Given DAILY@0700 [facility] Lidocaine 1 patch 03/04/17 10:00 03/11/17 10:02 Lidoderm Patch - TP 1 patch DAILY EMMY Administration Metoprolol Tartrate 25 mg 03/03/17 14:00 03/11/17 05:57 Lopressor - PO Not Given TID [facility] Mometasone Furoate 2 puff 03/02/17 16:45 03/11/17 10:01 Asmanex 220mcg - IH 2 puff DAILY EMMY Administration Multi-Ingredient Ointment 1 applic 02/24/17 10:30 03/11/17 10:07 Zinc Oxide TP 1 applic BID EMMY Administration Multivitamins/Minerals/Vitamin C 1 tab 02/23/17 10:00 03/11/17 10:05 Tab-A-Vit - PO 1 tab DAILY EMMY Administration Vortioxetine ( 1 each 02/25/17 08:00 03/10/17 08:06 Trintellix) 10 Mg PO Not Given Tablet (Pt's Own) DAILY@0800 [facility] Nystatin 500,000 units 02/27/17 18:00 03/11/17 05:58 Nystatin Oral Suspension - PO Not Given Q6HPO EMMY Ondansetron HCl 4 mg 02/23/17 08:18 03/09/17 15:00 Zofran Injection IVPB 4 mg Q6H PRN Administration NAUSEA Pancrelipase 3 cap 02/24/17 12:00 03/11/17 09:59 Eamon Turner 6,000 Units Capsule PO 3 cap TIDCM EMMY Administration Pantoprazole Sodium 40 mg 02/24/17 11:30 03/11/17 10:04 Protonix - PO 40 mg DAILY EMMY Administration Roflumilast 500 mcg 02/23/17 10:00 03/11/17 10:02 Daliresp - PO 500 mcg DAILY EMMY Administration Sodium Chloride 2 spray 03/04/17 14:00 [place] - NS TID PRN NASAL CONGESTION ASSESSMENT/PLAN: Hypercapnic Respiratory Failure secondary to copd excerbation - improved, -use bipap in night /06/05 rr16 fio2 35 -continue duoneb neb - decadron to 6mg q8, will taper it from tomorrow -Aspiration precautions - monitor vitals - keep spo2 >90 - Continue Roflumilast - Symbicort BID - Asmanex daily :Leukocytosis: HCAP pseudomonas , could be due to steroid completed a course of antibiotic zosyn for 7 days afebrile Afib, HTN; continue with metoprolol tartrate and cardiazem Hr 92 - Hypokalemia improved k 3.8 Elevated AST/ALT/Alk phos - improving - follow lft Neuro/Psyche: Anxiety, depression, chronic pain -Cont standing anti depressant -Cont neurontin and baclofen for chronic pain Fluid : off IV fluid electrolyte : repeat in am nutrition; on soft diet Proph: Hep SQ/PPI gi pro : on protonix po dispo : admit in icu Visit type - Emergency Visit Emergency Visit: Yes ED Registration Date: 02/24/17 Care time: The patient presented to the Emergency Department on the above date and was hospitalized for further evaluation of their emergent condition. - New Patient This patient is new to me today: No - Critical Care Critical Care patient: Yes Total Critical Care Time (in minutes): 45 Critical Care Statement: The care of this patient involved high complexity decision making to prevent further life threatening deterioration of the patient 's condition and/or to evalute & treat vital organ system(s) failure or risk of failure.
--- NOTE | 2017-03-11 11:23 | PN ---
Teaching Attending Note Name of Resident: Nabor Weldon ATTENDING PHYSICIAN STATEMENT I saw and evaluated the patient. I reviewed the resident's note and discussed the case with the resident. I agree with the resident's findings and plan as documented. SUBJECTIVE: Pt seen and examined in the ICU. Remains extubated, BiPAP overnight currently on ventimask. Saturating well. No fevers recorded. OBJECTIVE: Last Vital Signs Temp Pulse Resp BP Pulse Ox 98.1 F 87 13 130/98 97 03/11/17 10:00 03/11/17 10:40 03/11/17 10:00 03/11/17 10:00 03/11/17 10:40 Intake & Output 03/08/17 03/09/17 03/10/17 03/11/17 23:59 23:59 23:59 23:59 Intake Total 1150 2291.8 2300 120 Output Total 1500 3750 3500 500 Balance -350 -1458.2 -1200 -380 Weight 135 lb 7 oz 141 lb 15.643 oz 140 lb 10.479 oz 132 lb 4.438 oz Gen: less tachypneic Heart: RRR Lung: bilateral rhonchi Abd: soft, nontender Ext: decreasing edema CBC, BMP 03/11/17 05:15 03/11/17 05:15 Active Medications Acetaminophen (Tylenol -) 1,000 mg PO Q6H PRN PRN Reason: PAIN Last Admin: 03/10/17 18:04 Dose: 1,000 mg Albuterol/Ipratropium (Duoneb -) 1 amp NEB QIDR [facility] Last Admin: 03/11/17 06:49 Dose: 1 amp Baclofen (Lioresal -) 20 mg PO TID [facility] Last Admin: 03/11/17 05:57 Dose: Not Given Budesonide/Formoterol Fumarate (Symbicort 160/4.5mcg -) 2 puff IH BID [facility] Last Admin: 03/11/17 10:04 Dose: 2 puff Cholecalciferol (Vitamin D3 -) 2,000 unit PO DAILY [facility] Last Admin: 03/11/17 10:06 Dose: 2,000 unit Dexamethasone Sodium Phosphate (Decadron Injection -) 6 mg IVPUSH Q8H-IV EMMY Last Admin: 03/11/17 10:02 Dose: 6 mg Diltiazem HCl (Cardizem Injection -) 10 mg IVPUSH Q6H [facility] Last Admin: 03/11/17 05:58 Dose: 10 mg Diphenhydramine HCl (Benadryl Oral Solution -) 25 mg PO Q4H PRN PRN Reason: FOR ITCHING Last Admin: 03/10/17 22:03 Dose: 25 mg Docusate Sodium (Colace -) 100 mg PO BID PRN PRN Reason: CONSTIPATION Last Admin: 02/26/17 21:49 Dose: 100 mg Doxepin HCl (Sinequan -) 25 mg PO HS [facility] Last Admin: 03/10/17 22:01 Dose: 25 mg Eletriptan (Relpax -) 40 mg PO Q6H PRN PRN Reason: HEADACHE Last Admin: 03/02/17 10:54 Dose: 40 mg Gabapentin (Neurontin -) 300 mg PO TID [facility] Last Admin: 03/11/17 05:58 Dose: Not Given Guaifenesin (Mucinex -) 600 mg PO BID [facility] Last Admin: 03/11/17 10:03 Dose: 600 mg Guaifenesin (Robitussin -) 10 ml PO Q6H PRN PRN Reason: COUGH Last Admin: 02/28/17 05:52 Dose: 10 ml Heparin Sodium (Porcine) (Heparin -) 5,000 unit SQ TID [facility] Last Admin: 03/11/17 05:57 Dose: 5,000 unit Hydromorphone HCl (Dilaudid Injection -) 0.5 mg IVPUSH Q4H PRN PRN Reason: Pain 4-6 Last Admin: 03/11/17 10:14 Dose: 0.5 mg Insulin Aspart (Novolog Vial Sliding Scale -) 1 vial SQ ACHS [facility] PRN Reason: Protocol Last Admin: 03/11/17 10:52 Dose: Not Given Insulin Detemir (Levemir Vial) 5 units SQ BIDI [facility] Last Admin: 03/11/17 06:07 Dose: 5 units Levothyroxine Sodium (Synthroid -) 25 mcg PO DAILY@0700 [facility] Last Admin: 03/11/17 06:07 Dose: Not Given Lidocaine (Lidoderm Patch -) 1 patch TP DAILY [facility] Last Admin: 03/11/17 10:02 Dose: 1 patch Metoprolol Tartrate (Lopressor -) 25 mg PO TID [facility] Last Admin: 03/11/17 05:57 Dose: Not Given Mometasone Furoate (Asmanex 220mcg -) 2 puff IH DAILY [facility] Last Admin: 03/11/17 10:01 Dose: 2 puff Multi-Ingredient Ointment (Zinc Oxide) 1 applic TP BID [facility] Last Admin: 03/11/17 10:07 Dose: 1 applic Multivitamins/Minerals/Vitamin C (Tab-A-Vit -) 1 tab PO DAILY [facility] Last Admin: 03/11/17 10:05 Dose: 1 tab Vortioxetine ( Trintellix) 10 Mg Tablet (Pt's Own) 1 each PO DAILY@0800 [facility] Last Admin: 03/10/17 08:06 Dose: Not Given Nystatin (Nystatin Oral Suspension -) 500,000 units PO Q6HPO [facility] Last Admin: 03/11/17 05:58 Dose: Not Given Ondansetron HCl (Zofran Injection) 4 mg IVPB Q6H PRN PRN Reason: NAUSEA Last Admin: 03/09/17 15:00 Dose: 4 mg Pancrelipase (Creon Dr 6,000 Units Capsule) 3 cap PO TIDCM [facility] Last Admin: 03/11/17 09:59 Dose: 3 cap Pantoprazole Sodium (Protonix -) 40 mg PO DAILY [facility] Last Admin: 03/11/17 10:04 Dose: 40 mg Roflumilast (Daliresp -) 500 mcg PO DAILY [facility] Last Admin: 03/11/17 10:02 Dose: 500 mcg Sodium Chloride ([place] -) 2 spray NS TID PRN PRN Reason: NASAL CONGESTION ASSESSMENT AND PLAN: Acute on Chronic Hypoxic and Hypercapneic Respiratory Failure improving Acute COPD/Asthma Exacerbation r/o Pneumonia Atrial Fibrillation HTN Chronic Pain Syndrome/Opiate Dependent - s/p antibiotics - continue decadron at same dose - inhaled bronchodilators standing and PRN - monitor H/H - can attempt nasal cannula - titrate FiO2 to keep SpO2 >90% - rate control - PO as tolerated - OOB to chair - DVT/GI prophylaxis - continue ICU monitoring for tenuous respiratory status critical care time spent reviewing chart, evaluating patient and formulating plan 35 min
[2017-03-11] MEDS: VORTIOXETINE 10 MG PO SCH ×2 (12:46→13:41)
[2017-03-11] MEDS: ONDANSETRON 4 MG/2 ML VIAL IVPB PRN ×2 (15:11→19:51)
[2017-03-11] MEDS: DOXEPIN HCL 25 MG CAPSULE PO SCH (22:34)
[2017-03-12] MEDS: DEXAMETHASONE SOD PHOSPHATE 10 MG/1 ML VIAL IVPUSH SCH ×3 (02:00→21:30)
[2017-03-12] MEDS: HYDROmorphone HCL CARPU-JECT 1 MG/1 ML DISP.SYRIN IVPUSH PRN ×5 (02:51→19:56)
[2017-03-12] MEDS: ONDANSETRON 4 MG/2 ML VIAL IVPB PRN (04:33)
[2017-03-12] MEDS: ALBUTEROL SO4 2.5/IPRATROPIUM 0.5 INH SOL 3 ML VIAL.NEB. NEB SCH ×4 (05:44→23:14)
[2017-03-12] MEDS: NYSTATIN 500,000 UNITS/5 ML SUSPENSION PO SCH ×4 (06:41→17:23)
[2017-03-12 06:42] LABS: BASOPHIL 0.2 % (0-2.0); MCH 26.5 pg (25.7-33.7); MCHC 32.7 g/dl (32.0-36.0); MEAN CELL VOLUME 81.2 fl (80-96); MEAN PLT VOLUME 8.4 fl (7.5-11.1); NEUTROPHILS 92.7 % (42.8-82.8); PLATELET COUNT 221 K/MM3 (134-434); RDW 18.1 % (11.6-15.6); WHITE BLOOD COUNT 13.3 K/mm3 (4.0-10.0)
[2017-03-12] MEDS: dilTIAZem HCL 50 MG/10 ML - 10 ML VIAL IVPUSH SCH ×2 (06:44)
[2017-03-12] MEDS: HEPARIN NA (PORCINE) 5,000 UNITS/ML 1ML VIAL SQ SCH ×3 (06:45→21:30)
[2017-03-12] MEDS: GABAPENTIN 300 MG CAPSULE (FP) PO SCH ×3 (06:46→21:29)
[2017-03-12] MEDS: METOPROLOL TARTRATE 25 MG TABLET (FP) PO SCH ×3 (06:46→21:29)
[2017-03-12] MEDS: BACLOFEN 10 MG TABLET (FP) PO SCH ×3 (06:46→21:29)
[2017-03-12] MEDS: LEVOTHYROXINE NA 25 MCG TABLET (FP) PO SCH (06:47)
[2017-03-12 06:59] LABS: ALBUMIN 2.6 g/dl (3.4-5.0); ALK PHOS 120 U/L (45-117); ANION GAP 7 (8-16); BILIRUBIN,TOTAL 0.5 mg/dL (0.2-1.0); CALCIUM 8.2 mg/dL (8.5-10.1); CO2 37 mmol/L (21-32); CREATININE 0.3 mg/dL (0.55-1.02); GLUCOSE,RANDOM 70 mg/dL (74-106); SGOT/AST 7 U/L (15-37); SGPT/ALT 38 U/L (12-78); TOT PROT 5.7 g/dl (6.4-8.2)
[2017-03-12] MEDS: INSULIN SLIDING SCALE (NOVOLOG) 1 VIAL SQ SCH ×4 (07:34→21:59)
[2017-03-12] MEDS ORDERED: POTASSIUM CHLORIDE TABS 20 MEQ TABLET.ER (FP) PO ONE ×2 (07:37→12:00)
[2017-03-12] MEDS ORDERED: dilTIAZem HCL 60 MG TABLET (FP) PO SCH (07:45)
[2017-03-12] MEDS ORDERED: PT OWN MED DRAWER 7, Y5N ONE ×4 (08:01→23:33)
[2017-03-12] MEDS: INSULIN DETEMIR 100 UNITS/ML MDV SQ SCH ×2 (08:08→17:20)
[2017-03-12] MEDS: LIPASE/PROTEASE/AMYLASE 6,000 UNIT CAPSULE PO SCH ×4 (08:08→16:35)
[2017-03-12] MEDS: VORTIOXETINE 10 MG PO SCH (08:09)
[2017-03-12] MEDS ORDERED: HYDROmorphone HCL CARPU-JECT 1 MG/1 ML DISP.SYRIN IVPUSH ONE (09:24)
[2017-03-12] MEDS: MOMETASONE FUROATE 220 MCG/IH INHALER IH SCH (09:31)
[2017-03-12] MEDS: LIDOCAINE 5% TOPICAL PATCH TP SCH (09:32)
[2017-03-12] MEDS: ROFLUMILAST 500 MCG TABLET PO SCH (09:32)
[2017-03-12] MEDS: CHOLECALCIFEROL (VITAMIN D3) 1,000 UNIT TABLET (FP) PO SCH (09:33)
[2017-03-12] MEDS: BUDESONIDE/FORMETEROL FUMARATE 160/4.5 mcg INHALER IH SCH ×2 (09:33→21:35)
[2017-03-12] MEDS: ZINC OXIDE 20% TOPICAL OINTMENT 30 GM TUBE TP SCH (09:33)
[2017-03-12] MEDS: MULTIVITAMINS (DAILY MVI) TABLET (FP) PO SCH (09:33)
[2017-03-12] MEDS: PANTOPRAZOLE 40 MG TABLET (FP) PO SCH (09:33)
[2017-03-12] MEDS: guaiFENesin 600 MG TABLET.ER (FP) PO SCH ×2 (11:47→21:30)
[2017-03-12 11:50] LABS: GLUCOSE,RANDOM 97 mg/dL (74-106)
[2017-03-12 11:51] LABS: TROPONIN I < 0.02 ng/ml (0.00-0.05)
[2017-03-12] MEDS ORDERED: DOCUSATE SODIUM 100 MG CAPSULE (FP) PO PRN (12:14)
[2017-03-12] MEDS ORDERED: SODIUM CHLORIDE NASAL SPRAY 44 ML BOTTLE NS PRN (12:14)
[2017-03-12] MEDS ORDERED: ELETRIPTAN HYDROBROMIDE 40 MG TABLET PO PRN (12:14)
[2017-03-12] MEDS ORDERED: ACETAMINOPHEN 500 MG TABLET (FP) PO PRN (12:14)
--- NOTE | 2017-03-12 12:20 | EKG ---
Test Reason : Blood Pressure : / mmHG Vent. Rate : 099 BPM Atrial Rate : 099 BPM P-R Int : 128 ms QRS Dur : 080 ms QT Int : 334 ms P-R-T Axes : 042 015 046 degrees QTc Int : 428 ms NORMAL SINUS RHYTHM NORMAL ECG WHEN COMPARED WITH ECG OF 05-MAR-2017 09:09, VENT. RATE HAS DECREASED BY [address] NO LONGER DEPRESSED IN ANTERIOR LEADS Confirmed by ESCOBAR WRIGHT, NICK ([id number]) on 03/12/2017 12:19:54 PM Referred By: BEENA COPPOLA Confirmed By:NICK CODY MD
--- NOTE | 2017-03-12 12:22 | PN ---
Physical Exam: SUBJECTIVE: Patient seen and examined patient feels better, uses bipap in night and Nasal canula in day, feels better. Compliant of mild pain in middle of chest. Ekg reviewed, trop i normal will decrease dexamethasone to q12h. IV cardiazem changed to po cardiazem OBJECTIVE: Vital Signs Period Temp Pulse Resp BP Sys/Dan Pulse Ox Last 24 Hr 97.9 F-98.6 F 85-117 12-22 101-146/63-96 97-98 GENERAL: conscious and oriented HEAD: Normal with no signs of trauma. EYES: PERRL, ENT: Ears normal, nares patent, moist mucous membranes. NECK: Trachea midline, full range of motion, supple. LUNGS: Breath sounds equal, b/l rales improved since yesterday. HEART: Regular rate, sis2 normal . ABDOMEN: Soft, nontender, nondistended, normoactive bowel sounds, no guarding, no rebound, EXTREMITIES: 2+ pulses, warm, no edema. SKIN: Warm, dry, Laboratory Results - last 24 hr 03/11/17 03/11/17 03/12/17 16:47 22:11 05:45 WBC 13.3 H RBC 3.02 L Hgb 8.0 L Hct 24.5 L MCV 81.2 MCHC 32.7 RDW 18.1 H Plt Count 221 MPV 8.4 Neutrophils % 92.7 H Lymphocytes % 5.3 L D Monocytes % 1.8 L Eosinophils % 0.0 Basophils % 0.2 Sodium Potassium Chloride Carbon Dioxide Anion Gap BUN Creatinine Creat Clearance w eGFR POC Glucometer 143.13909 159.41995 Random Glucose Calcium Total Bilirubin AST ALT Alkaline Phosphatase Troponin I Total Protein Albumin 03/12/17 03/12/17 03/12/17 05:45 06:23 10:10 WBC RBC Hgb Hct MCV MCHC RDW Plt Count MPV Neutrophils % Lymphocytes % Monocytes % Eosinophils % Basophils % Sodium 142 Potassium 3.1 L Chloride 98 Carbon Dioxide 37 H Anion Gap 7 L BUN 18 D Creatinine 0.3 L D Creat Clearance w eGFR > 60 POC Glucometer 93.47089 Random Glucose 70 L D 97 D Calcium 8.2 L Total Bilirubin 0.5 D AST 7 L D ALT 38 D Alkaline Phosphatase 120 H D Troponin I < 0.02 Total Protein 5.7 L Albumin 2.6 L 03/12/17 10:10 WBC RBC Hgb Hct MCV MCHC RDW Plt Count MPV Neutrophils % Lymphocytes % Monocytes % Eosinophils % Basophils % Sodium Potassium Chloride Carbon Dioxide Anion Gap BUN Creatinine Creat Clearance w eGFR POC Glucometer Random Glucose Cancelled Calcium Total Bilirubin AST ALT Alkaline Phosphatase Troponin I Total Protein Albumin Active Medications Generic Name Dose Route Start Last Admin Trade Name Freq PRN Reason Stop Dose Admin Acetaminophen 1,000 mg 03/12/17 12:14 Tylenol - PO Q6H PRN PAIN Albuterol/Ipratropium 1 amp 03/12/17 18:00 Duoneb - NEB QIDR [facility] Baclofen 20 mg 03/12/17 14:00 Lioresal - PO TID [facility] Budesonide/Formoterol Fumarate 2 puff 03/12/17 22:00 Symbicort 160/4.5mcg - IH BID [facility] Cholecalciferol 2,000 unit 03/13/17 10:00 Vitamin D3 - PO DAILY [facility] Dexamethasone Sodium Phosphate 6 mg 03/12/17 23:45 Decadron Injection - IVPUSH Q12H [facility] Diltiazem HCl 60 mg 03/12/17 13:45 Cardizem - PO Q6H [facility] Diphenhydramine HCl 25 mg 03/12/17 12:14 Benadryl Oral Solution - PO Q4H PRN FOR ITCHING Docusate Sodium 100 mg 03/12/17 12:14 Colace - PO BID PRN CONSTIPATION Doxepin HCl 25 mg 03/12/17 22:00 Sinequan - PO HS [facility] Eletriptan 40 mg 03/12/17 12:14 Relpax - PO Q6H PRN HEADACHE Gabapentin 300 mg 03/12/17 14:00 Neurontin - PO TID [facility] Guaifenesin 10 ml 03/12/17 12:14 Robitussin - PO Q6H PRN COUGH Guaifenesin 600 mg 03/12/17 22:00 Mucinex - PO BID [facility] Heparin Sodium (Porcine) 5,000 unit 03/12/17 14:00 Heparin - SQ TID [facility] Hydromorphone HCl 0.5 mg 03/12/17 12:14 Dilaudid Injection - IVPUSH Q4H PRN Pain 4-6 Insulin Aspart 1 vial 03/12/17 16:30 Novolog Vial Sliding Scale - SQ ACHS [facility] Protocol Insulin Detemir 5 units 03/12/17 16:30 Levemir Vial SQ BIDI [facility] Levothyroxine Sodium 25 mcg 03/13/17 07:00 Synthroid - PO DAILY@0700 [facility] Lidocaine 1 patch 03/13/17 10:00 Lidoderm Patch - TP DAILY [facility] Metoprolol Tartrate 25 mg 03/12/17 14:00 Lopressor - PO TID [facility] Mometasone Furoate 2 puff 03/13/17 10:00 Asmanex 220mcg - IH DAILY [facility] Multi-Ingredient Ointment 1 applic 03/12/17 22:00 Zinc Oxide TP BID [facility] Multivitamins/Minerals/Vitamin C 1 tab 03/13/17 10:00 Tab-A-Vit - PO DAILY [facility] Non-Formulary Medication 1 each 03/13/17 08:00 Patient's Own Med PO DAILY@0800 [facility] Nystatin 500,000 units 03/12/17 18:00 Nystatin Oral Suspension - PO Q6HPO [facility] Ondansetron HCl 4 mg 03/12/17 12:14 Zofran Injection IVPB Q6H PRN NAUSEA Pancrelipase 3 cap 03/12/17 17:[address] 6,000 Units Capsule PO TIDCM [facility] Pantoprazole Sodium 40 mg 03/13/17 10:00 Protonix - PO DAILY [facility] Roflumilast 500 mcg 03/13/17 10:00 Daliresp - PO DAILY [facility] Sodium Chloride 2 spray 03/12/17 12:14 [place] Nasal [place] - NS TID PRN NASAL CONGESTION ASSESSMENT/PLAN: Hypercapnic Respiratory Failure secondary to copd excerbation - improved, -use bipap in night 06/05 rr16 fio2 35 and use nasal canula in day. -continue duoneb neb - decadron to 6mg q12h, taper it -Aspiration precautions - monitor vitals - keep spo2 >90 - Continue Roflumilast - Symbicort BID - Asmanex daily :Leukocytosis: HCAP pseudomonas , could be due to steroid completed a course of antibiotic zosyn for 7 days afebrile Afib, HTN; continue with metoprolol tartrate 25 tid and cardiazem 60 q6h Hr 92 - Hypokalemia improved k 3.1 given 40mg kcl po bid for today repeat K in evening, Elevated AST/ALT/Alk phos - improving - follow lft Neuro/Psyche: Anxiety, depression, chronic pain -Cont standing anti depressant -Cont neurontin and baclofen for chronic pain Fluid : off IV fluid electrolyte : repeat in am nutrition; on soft diet Proph: Hep SQ/PPI gi pro : on protonix po dispo : transfer to tele Visit type - Emergency Visit Emergency Visit: Yes ED Registration Date: 02/24/17 Care time: The patient presented to the Emergency Department on the above date and was hospitalized for further evaluation of their emergent condition. - New Patient This patient is new to me today: No - Critical Care Critical Care patient: Yes Total Critical Care Time (in minutes): 45 Critical Care Statement: The care of this patient involved high complexity decision making to prevent further life threatening deterioration of the patient 's condition and/or to evalute & treat vital organ system(s) failure or risk of failure.
--- NOTE | 2017-03-12 13:04 | PN ---
Teaching Attending Note Name of Resident: Nabor Weldon ATTENDING PHYSICIAN STATEMENT I saw and evaluated the patient. I reviewed the resident's note and discussed the case with the resident. I agree with the resident's findings and plan as documented. SUBJECTIVE: Pt seen and examined in the ICU. BiPAP overnight. Breathing better today. No fevers or chills. OBJECTIVE: Last Vital Signs Temp Pulse Resp BP Pulse Ox 98.6 F 117 H 15 108/70 97 03/12/17 10:00 03/12/17 12:00 03/12/17 12:00 03/12/17 12:00 03/12/17 12:22 Intake & Output 03/09/17 03/10/17 03/11/17 03/12/17 23:59 23:59 23:59 23:59 Intake Total 2291.8 2300 770 Output Total 3750 3500 1100 200 Balance -1458.2 -1200 -330 -200 Weight 141 lb 15.643 oz 140 lb 10.479 oz 132 lb 4.438 oz 132 lb 3 oz Gen: less tachypneic Heart: tachycardic, regular Lung: bilateral rhonchi Abd: soft, nontender Ext: no edema CBC, BMP 03/12/17 05:45 03/12/17 10:10 Active Medications Acetaminophen (Tylenol -) 1,000 mg PO Q6H PRN PRN Reason: PAIN Albuterol/Ipratropium (Duoneb -) 1 amp NEB QIDR EMM[facility] Baclofen (Lioresal -) 20 mg PO TID [facility] Budesonide/Formoterol Fumarate (Symbicort 160/4.5mcg -) 2 puff IH BID [facility] Cholecalciferol (Vitamin D3 -) 2,000 unit PO DAILY [facility] Dexamethasone Sodium Phosphate (Decadron Injection -) 6 mg IVPUSH Q12H [facility] Diltiazem HCl (Cardizem -) 60 mg PO Q6H [facility] Diphenhydramine HCl (Benadryl Oral Solution -) 25 mg PO Q4H PRN PRN Reason: FOR ITCHING Docusate Sodium (Colace -) 100 mg PO BID PRN PRN Reason: CONSTIPATION Doxepin HCl (Sinequan -) 25 mg PO HS [facility]MM[facility] Eletriptan (Relpax -) 40 mg PO Q6H PRN PRN Reason: HEADACHE Gabapentin (Neurontin -) 300 mg PO TID [facility] Guaifenesin (Robitussin -) 10 ml PO Q6H PRN PRN Reason: COUGH Guaifenesin (Mucinex -) 600 mg PO BID [facility] Heparin Sodium (Porcine) (Heparin -) 5,000 unit SQ TID [facility] Hydromorphone HCl (Dilaudid Injection -) 0.5 mg IVPUSH Q4H PRN PRN Reason: Pain 4-6 Insulin Aspart (Novolog Vial Sliding Scale -) 1 vial SQ ACHS [facility] PRN Reason: Protocol Insulin Detemir (Levemir Vial) 5 units SQ BIDI [facility] Levothyroxine Sodium (Synthroid -) 25 mcg PO DAILY@0700 [facility] Lidocaine (Lidoderm Patch -) 1 patch TP DAILY [facility] Metoprolol Tartrate (Lopressor -) 25 mg PO TID [facility] Mometasone Furoate (Asmanex 220mcg -) 2 puff IH DAILY [facility] Multi-Ingredient Ointment (Zinc Oxide) 1 applic TP BID [facility] Multivitamins/Minerals/Vitamin C (Tab-A-Vit -) 1 tab PO DAILY [facility] Non-Formulary Medication (Patient's Own Med) 1 each PO DAILY@0800 [facility] Nystatin (Nystatin Oral Suspension -) 500,000 units PO Q6HPO [facility] Ondansetron HCl (Zofran Injection) 4 mg IVPB Q6H PRN PRN Reason: NAUSEA Pancrelipase (Creon Dr 6,000 Units Capsule) 3 cap PO TIDCM [facility] Pantoprazole Sodium (Protonix -) 40 mg PO DAILY [facility] Roflumilast (Daliresp -) 500 mcg PO DAILY [facility] Sodium Chloride ([place] Nasal [place] -) 2 spray NS TID PRN PRN Reason: NASAL CONGESTION ASSESSMENT AND PLAN: Acute on Chronic Hypoxic and Hypercapneic Respiratory Failure improving Acute COPD/Asthma Exacerbation r/o Pneumonia Atrial Fibrillation HTN Chronic Pain Syndrome/Opiate Dependent - s/p antibiotics - taper decadron to q12h, can likely change steroids to PO in AM if continues to improve - inhaled bronchodilators standing and PRN - monitor H/H - titrate FiO2 to keep SpO2 >90% - rate control - PO as tolerated - OOB to chair - establish peripheral access and d/c central line - DVT/GI prophylaxis - can monitor on telemetry critical care time spent reviewing chart, evaluating patient and formulating plan 35 min
[2017-03-12] MEDS: dilTIAZem HCL 60 MG TABLET (FP) PO SCH ×2 (13:14→17:23)
--- NOTE | 2017-03-12 16:23 | PN ---
Physical Exam: SUBJECTIVE: Patient seen and examined. She is ready to sit in chair today. She said shes hasn't slept in several days. OBJECTIVE: - Has central like d/t poor access, will need PIV prior to pulling central line Vital Signs Period Temp Pulse Resp BP Sys/Dan Pulse Ox Last 24 Hr 97.9 F-98.8 F 84-117 12-22 101-146/58-96 96-98 PE Neuro: alert, awake, cn 2-12intact Heent: LIJ Pulm: bilateral rhonchi, mild wheezing, +NC CV: s1 s2 rrr no mrg Abd: s nt nd + bs : [place] clear yellow urine Ext: warm, no le edema CBCD WBC 13.3 K/mm3 (4.0-10.0) H 03/12/17 05:45 RBC 3.02 M/mm3 (3.60-5.2) L 03/12/17 05:45 Hgb 8.0 GM/dL (10.7-15.3) L 03/12/17 05:45 Hct 24.5 % (32.4-45.2) L 03/12/17 05:45 MCV 81.2 fl (80-96) 03/12/17 05:45 MCHC 32.7 g/dl (32.0-36.0) 03/12/17 05:45 RDW 18.1 % (11.6-15.6) H 03/12/17 05:45 Plt Count 221 K/MM3 (134-434) 03/12/17 05:45 MPV 8.4 fl (7.5-11.1) 03/12/17 05:45 CMP Sodium 142 mmol/L (136-145) 03/12/17 05:45 Potassium 3.1 mmol/L (3.5-5.1) L 03/12/17 05:45 Chloride 98 mmol/L (98-107) 03/12/17 05:45 Carbon Dioxide 37 mmol/L (21-32) H 03/12/17 05:45 Anion Gap 7 (8-16) L 03/12/17 05:45 BUN 18 mg/dL (7-18) D 03/12/17 05:45 Creatinine 0.3 mg/dL (0.55-1.02) L D 03/12/17 05:45 Creat Clearance w eGFR > 60 (>60) 03/12/17 05:45 Calcium 8.2 mg/dL (8.5-10.1) L 03/12/17 05:45 Total Bilirubin 0.5 mg/dL (0.2-1.0) D 03/12/17 05:45 AST 7 U/L (15-37) L D 03/12/17 05:45 ALT 38 U/L (12-78) D 03/12/17 05:45 Alkaline Phosphatase 120 U/L (45-117) H D 03/12/17 05:45 Total Protein 5.7 g/dl (6.4-8.2) L 03/12/17 05:45 Albumin 2.6 g/dl (3.4-5.0) L 03/12/17 05:45 03/12/17 10:10 Troponin I < 0.02 Active Medications Generic Name Dose Route Start Last Admin Trade Name Freq PRN Reason Stop Dose Admin Acetaminophen 1,000 mg 03/12/17 12:14 Tylenol - PO Q6H PRN PAIN Albuterol/Ipratropium 1 amp 03/12/17 18:00 Duoneb - NEB QIDR EMMY Baclofen 20 mg 03/12/17 14:00 03/12/17 13:15 Lioresal - PO 20 mg TID EMMY Administration Budesonide/Formoterol Fumarate 2 puff 03/12/17 22:00 Symbicort 160/4.5mcg - IH BID EMMY Cholecalciferol 2,000 unit 03/13/17 10:00 Vitamin D3 - PO DAILY [facility] Dexamethasone Sodium Phosphate 6 mg 03/12/17 22:00 Decadron Injection - IVPUSH BID EMMY Diltiazem HCl 60 mg 03/12/17 13:45 03/12/17 13:14 Cardizem - PO 60 mg Q6HPO EMMY Administration Diphenhydramine HCl 25 mg 03/12/17 12:14 Benadryl Oral Solution - PO Q4H PRN FOR ITCHING Docusate Sodium 100 mg 03/12/17 12:14 Colace - PO BID PRN CONSTIPATION Doxepin HCl 25 mg 03/12/17 22:00 Sinequan - PO HS [facility] Eletriptan 40 mg 03/12/17 12:14 Relpax - PO Q6H PRN HEADACHE Gabapentin 300 mg 03/12/17 14:00 03/12/17 13:15 Neurontin - PO 300 mg TID [facility] Administration Guaifenesin 10 ml 03/12/17 12:14 Robitussin - PO Q6H PRN COUGH Guaifenesin 600 mg 03/12/17 22:00 Mucinex - PO BID EMMY Heparin Sodium (Porcine) 5,000 unit 03/12/17 14:00 03/12/17 13:14 Heparin - SQ 5,000 unit TID [facility] Administration Hydromorphone HCl 0.5 mg 03/12/17 12:14 03/12/17 15:30 Dilaudid Injection - IVPUSH 0.5 mg Q4H PRN Administration Pain 4-6 Insulin Aspart 1 vial 03/12/17 16:30 Novolog Vial Sliding Scale - SQ ACHS [facility] Protocol Insulin Detemir 5 units 03/12/17 16:30 Levemir Vial SQ BIDI [facility] Levothyroxine Sodium 25 mcg 03/13/17 07:00 Synthroid - PO DAILY@0700 [facility] Lidocaine 1 patch 03/13/17 10:00 Lidoderm Patch - TP DAILY [facility] Metoprolol Tartrate 25 mg 03/12/17 14:00 03/12/17 13:15 Lopressor - PO 25 mg TID [facility] Administration Mometasone Furoate 2 puff 03/13/17 10:00 Asmanex 220mcg - IH DAILY [facility] Multi-Ingredient Ointment 1 applic 03/12/17 22:00 Zinc Oxide TP BID [facility] Multivitamins/Minerals/Vitamin C 1 tab 03/13/17 10:00 Tab-A-Vit - PO DAILY [facility] Non-Formulary Medication 1 each 03/13/17 08:00 Patient's Own Med PO DAILY@0800 [facility] Nystatin 500,000 units 03/12/17 18:00 Nystatin Oral Suspension - PO Q6HPO [facility] Ondansetron HCl 4 mg 03/12/17 12:14 Zofran Injection IVPB Q6H PRN NAUSEA Pancrelipase 3 cap 03/12/17 17:[address] 6,000 Units Capsule PO TIDCM [facility] Pantoprazole Sodium 40 mg 03/13/17 10:00 Protonix - PO DAILY [facility] Roflumilast 500 mcg 03/13/17 10:00 Daliresp - PO DAILY [facility] Sodium Chloride 2 spray 03/12/17 12:14 [place] Nasal [place] - NS TID PRN NASAL CONGESTION Assessment: 51 year old female pmhx of COPD on home O2, previous trach, Afib, HTN, anxiety, bipolar disorder and depression admitted to hospital with bronchitis and diarrhea, transferred to ICU s/p hypercarbic respiratory arrest, extubated 03/04, re intubated 03/05, extubated 03/09. Plan: 1. Acute on chroinc hypoxic and hypercapnic Respiratory Failure - Stable on NC - BiPap HS - Taper dexamethasone 6mg BID IV; if stable transition to prednisone - Mucinex 600mg BID - Duonebs [facility] 2. Acute COPD/Asthma exacerbation - On decadron as above - Continue Roflumilast - Symbicort BID - Asmanex daily 3. HCAP coverage d/t pseudomonas - Completed 7 days zosyn 4. AFIB - In sinus - Continue Cardizem PO 60mg q6 5. HTN - Lopressor 25mg TID 6. Anemia - Stable 7. DM II - Levemir 5 BID - ISS, BGM ACHS 8. Hypothroidism - Synthroid 25mg daily 9. Anxiety, depression, chronic pain - Cont standing anti depressants - Cont neurontin and baclofen for chronic pain 10. Nutrition - Soft diet today 11. Physical therapy 12. Hypokalemia - repelted 40meq x2 today Visit type - Emergency Visit Emergency Visit: Yes ED Registration Date: 02/24/17 Care time: The patient presented to the Emergency Department on the above date and was hospitalized for further evaluation of their emergent condition. - New Patient This patient is new to me today: No - Critical Care Critical Care patient: No
[2017-03-12] MEDS: DOXEPIN HCL 25 MG CAPSULE PO SCH (21:29)
[2017-03-12] MEDS ORDERED: DEXAMETHASONE SOD PHOSPHATE 10 MG/1 ML VIAL IVPUSH SCH (22:00)
--- NOTE | 2017-03-12 22:48 | HOSP ---
Subjective - Review of Symptoms Events since last encounter: Hospitalist Encounter Notified by the RN that the patient is feeling anxious and requests Xanax and nebulizer treatment. Arrived to bedside, patient is alert, awake and oriented. Speaking in full sentences, appears upset and anxious. PE performed see notes Duvicb ordered x1 now Discussed in detail with patient the risks and dangers of giving her Xanax with her respiratory status, patient verbalized understanding Allowed patient to vent and discuss her concerns about the care she was receiving from the nursing and ancillary staff. Empathy and reassurance given to patient Informed primary RN regarding patient's concerns Will continue to monitor Pulmonary: Yes: Cough Other Systems: Psychological- Anxious Physical Examination Vital Signs: Vital Signs Temperature 98.5 F 03/12/17 18:00 Pulse Rate 83 03/12/17 18:00 Respiratory Rate 18 03/12/17 18:00 Blood Pressure 120/78 03/12/17 18:00 O2 Sat by Pulse Oximetry (%) 97 03/12/17 18:03 Last Vital Signs Temp Pulse Resp BP Pulse Ox 98.3 F 105 H 16 112/78 97 03/13/17 02:00 03/13/17 02:00 03/13/17 02:00 03/13/17 02:00 03/12/17 22:00 Constitutional: Yes: Anxious, Mild Distress Cardiovascular: Yes: WNL, Regular Rate and Rhythm, S1, S2 Respiratory: Yes: On Nasal O2, Rhonchi, Wheezes Neurological: Yes: WNL, Alert, Oriented, Cran Nerves II-XII Intact Psychiatric: Yes: WNL, Alert, Oriented Labs: CBC, BMP 03/12/17 05:45 03/12/17 21:14 ABG Results ABG pH 7.37 (7.35-7.45) 03/09/17 07:20 ABG pCO2 at Pt Temp 42.8 mmHg (35-45) 03/09/17 07:20 ABG pO2 at Pt Temp 176.0 mmHg (80-100) H* 03/09/17 07:20 ABG HCO3 24.1 meq/L (22-26) 03/09/17 07:20 ABG O2 Sat (Measured) 99.7 % (90-98.9) H* 03/09/17 07:20 ABG O2 Content 10.7 % vol (15-22) L 03/09/17 07:20 ABG Base Excess -0.6 meq/l (-2-2) 03/09/17 07:20 Current Medications Generic Name Dose Route Start Last Admin Trade Name Freq PRN Reason Stop Dose Admin Acetaminophen 1,000 mg 03/12/17 12:14 Tylenol - PO Q6H PRN PAIN Albuterol/Ipratropium 1 amp 03/12/17 18:00 03/12/17 23:14 Duoneb - NEB Not Given QIDR EMMY Baclofen 20 mg 03/12/17 14:00 03/12/17 21:29 Lioresal - PO 20 mg TID EMMY Administration Budesonide/Formoterol Fumarate 2 puff 03/12/17 22:00 03/12/17 21:35 Symbicort 160/4.5mcg - IH 2 puff BID EMMY Administration Cholecalciferol 2,000 unit 03/13/17 10:00 Vitamin D3 - PO DAILY [facility] Dexamethasone Sodium Phosphate 6 mg 03/12/17 22:00 03/12/17 21:30 Decadron Injection - IVPUSH 6 mg BID [facility] Administration Diltiazem HCl 60 mg 03/12/17 13:45 03/13/17 00:04 Cardizem - PO 60 mg Q6HPO EMMY Administration Diphenhydramine HCl 25 mg 03/12/17 12:14 Benadryl Oral Solution - PO Q4H PRN FOR ITCHING Docusate Sodium 100 mg 03/12/17 12:14 Colace - PO BID PRN CONSTIPATION Doxepin HCl 25 mg 03/12/17 22:00 03/12/17 21:29 Sinequan - PO 25 mg HS EMMY Administration Eletriptan 40 mg 03/12/17 12:14 Relpax - PO Q6H PRN [place]AC[place] Gabapentin 300 mg 03/12/17 14:00 03/12/17 21:29 Neurontin - PO 300 mg TID EMMY Administration Guaifenesin 10 ml 03/12/17 12:14 Robitussin - PO Q6H PRN COUGH Guaifenesin 600 mg 03/12/17 22:00 03/12/17 21:30 Mucinex - PO 600 mg BID EMMY Administration Heparin Sodium (Porcine) 5,000 unit 03/12/17 14:00 03/12/17 21:30 Heparin - SQ 5,000 unit TID EMMY Administration Hydromorphone HCl 0.5 mg 03/12/17 12:14 03/13/17 00:04 Dilaudid Injection - IVPUSH 0.5 mg Q4H PRN Administration Pain 4-6 Insulin Aspart 1 vial 03/12/17 16:30 03/12/17 21:59 Novolog Vial Sliding Scale - SQ Not Given ACHS [facility] Protocol Insulin Detemir 5 units 03/12/17 16:30 03/12/17 17:20 Levemir Vial SQ 5 units BIDI EMMY Administration Levothyroxine Sodium 25 mcg 03/13/17 07:00 Synthroid - PO DAILY@0700 [facility] Lidocaine 1 patch 03/13/17 10:00 Lidoderm Patch - TP DAILY [facility] Metoprolol Tartrate 25 mg 03/12/17 14:00 03/12/17 21:29 Lopressor - PO 25 mg TID [facility] Administration Mometasone Furoate 2 puff 03/13/17 10:00 Asmanex 220mcg - IH DAILY [facility] Multi-Ingredient Ointment 1 applic 03/12/17 22:00 03/13/17 00:12 Zinc Oxide TP 1 applic BID [facility] Administration Multivitamins/Minerals/Vitamin C 1 tab 03/13/17 10:00 Tab-A-Vit - PO DAILY [facility] Non-Formulary Medication 1 each 03/13/17 08:00 Patient's Own Med PO DAILY@0800 [facility] Nystatin 500,000 units 03/12/17 18:00 03/13/17 00:12 Nystatin Oral Suspension - PO 500,000 units Q6HPO [facility] Administration Ondansetron HCl 4 mg 03/12/17 12:14 Zofran Injection IVPB Q6H PRN NAUSEA Pancrelipase 3 cap 03/12/17 17:30 03/12/17 16:[address] 6,000 Units Capsule PO Not Given TIDCM [facility] Pantoprazole Sodium 40 mg 03/13/17 10:00 Protonix - PO DAILY [facility] Roflumilast 500 mcg 03/13/17 10:00 Daliresp - PO DAILY [facility] Sodium Chloride 2 spray 03/12/17 12:14 [place] Nasal [place] - NS TID PRN NASAL CONGESTION Intake & Output 03/10/17 03/11/17 03/12/17 03/13/17 23:59 23:59 23:59 23:59 Intake Total 2300 770 1150 Output Total 3500 1100 450 Balance -1200 -330 700 Weight 63.8 kg 60 kg 59.959 kg
[2017-03-12] MEDS: ALBUTEROL SO4 2.5/IPRATROPIUM 0.5 INH SOL 3 ML VIAL.NEB. NEB ONE ×2 (23:10→23:14)
[2017-03-13] MEDS: dilTIAZem HCL 60 MG TABLET (FP) PO SCH ×4 (00:04→17:06)
[2017-03-13] MEDS: HYDROmorphone HCL CARPU-JECT 1 MG/1 ML DISP.SYRIN IVPUSH PRN ×6 (00:04→22:19)
[2017-03-13] MEDS: NYSTATIN 500,000 UNITS/5 ML SUSPENSION PO SCH ×4 (00:12→17:09)
[2017-03-13] MEDS: ZINC OXIDE 20% TOPICAL OINTMENT 30 GM TUBE TP SCH ×3 (00:12→21:52)
[2017-03-13] MEDS: ALBUTEROL SO4 2.5/IPRATROPIUM 0.5 INH SOL 3 ML VIAL.NEB. NEB SCH ×5 (06:31→22:00)
[2017-03-13] MEDS ORDERED: PT OWN MED DRAWER 7, Y5N ONE ×4 (06:51→22:15)
[2017-03-13] MEDS: GABAPENTIN 300 MG CAPSULE (FP) PO SCH ×3 (07:02→21:47)
[2017-03-13] MEDS: LEVOTHYROXINE NA 25 MCG TABLET (FP) PO SCH (07:02)
[2017-03-13] MEDS: METOPROLOL TARTRATE 25 MG TABLET (FP) PO SCH ×3 (07:02→21:47)
[2017-03-13] MEDS: HEPARIN NA (PORCINE) 5,000 UNITS/ML 1ML VIAL SQ SCH ×3 (07:03→21:47)
[2017-03-13] MEDS: BACLOFEN 10 MG TABLET (FP) PO SCH ×3 (07:03→21:50)
[2017-03-13] MEDS: INSULIN DETEMIR 100 UNITS/ML MDV SQ SCH ×2 (07:03→17:06)
[2017-03-13] MEDS: INSULIN SLIDING SCALE (NOVOLOG) 1 VIAL SQ SCH ×4 (07:04→21:48)
[2017-03-13 08:03] LABS: BASOPHIL 0.1 % (0-2.0); MCH 26.1 pg (25.7-33.7); MCHC 32.1 g/dl (32.0-36.0); MEAN CELL VOLUME 81.3 fl (80-96); MEAN PLT VOLUME 8.5 fl (7.5-11.1); NEUTROPHILS 94.6 % (42.8-82.8); PLATELET COUNT 222 K/MM3 (134-434); RDW 18.3 % (11.6-15.6); WHITE BLOOD COUNT 14.6 K/mm3 (4.0-10.0)
[2017-03-13 08:27] LABS: CALCIUM 8.4 mg/dL (8.5-10.1); COCKROFT - GAULT 214.71; CREATININE 0.3 mg/dL (0.55-1.02)
[2017-03-13] MEDS: LIDOCAINE 5% TOPICAL PATCH TP SCH (10:03)
[2017-03-13] MEDS: LIPASE/PROTEASE/AMYLASE 6,000 UNIT CAPSULE PO SCH ×3 (10:03→17:06)
[2017-03-13] MEDS: DEXAMETHASONE SOD PHOSPHATE 10 MG/1 ML VIAL IVPUSH SCH ×2 (10:04→21:47)
[2017-03-13] MEDS: CHOLECALCIFEROL (VITAMIN D3) 1,000 UNIT TABLET (FP) PO SCH (10:08)
[2017-03-13] MEDS: MOMETASONE FUROATE 220 MCG/IH INHALER IH SCH (10:08)
[2017-03-13] MEDS: BUDESONIDE/FORMETEROL FUMARATE 160/4.5 mcg INHALER IH SCH ×2 (10:08→21:52)
[2017-03-13] MEDS: ROFLUMILAST 500 MCG TABLET PO SCH (10:09)
[2017-03-13] MEDS: PANTOPRAZOLE 40 MG TABLET (FP) PO SCH (10:09)
[2017-03-13] MEDS: MULTIVITAMINS (DAILY MVI) TABLET (FP) PO SCH (10:10)
[2017-03-13] MEDS: guaiFENesin 600 MG TABLET.ER (FP) PO SCH ×2 (10:10→21:47)
--- NOTE | 2017-03-13 10:27 | PN ---
Physical Exam: SUBJECTIVE: Patient seen and examined. States she feels well. Asking to get out of bed to the chair Denies chest pain, shortness of breath. OBJECTIVE: Appears stable on 2 liters of nasal cannula Discharge planning discussed with manager social media Vital Signs Period Temp Pulse Resp BP Sys/Dan Pulse Ox Last 24 Hr 97.3 F-99.3 F 77-117 15-18 103-120/58-78 96-97 GENERAL: The patient is awake, alert, and fully oriented, in no acute distress. HEAD: Normal with no signs of trauma. EYES: PERRL, extraocular movements intact, sclera anicteric, conjunctiva clear. No ptosis. ENT: Ears normal, nares patent, oropharynx clear without exudates, moist mucous membranes. NECK: Trachea midline, full range of motion, supple. LUNGS: scattered rhonchi on bilateral lungs posteriorly, in no acute distress. HEART: Regular rate and rhythm ABDOMEN: Soft, nontender, nondistended, normoactive bowel sounds, no guarding, no rebound, no hepatosplenomegaly, no masses. EXTREMITIES: no edema. NEUROLOGICAL: Normal speech, gait not observed. PSYCH: Normal mood, normal affect. SKIN: Warm, dry, normal turgor, no rashes or lesions noted Laboratory Results - last 24 hr 03/12/17 03/12/17 03/12/17 10:10 10:10 16:33 WBC RBC Hgb Hct MCV MCHC RDW Plt Count MPV Neutrophils % Lymphocytes % Monocytes % Eosinophils % Basophils % Sodium Potassium Chloride Carbon Dioxide Anion Gap BUN Creatinine POC Glucometer [id number] Random Glucose 97 D Cancelled Calcium Troponin I < 0.02 03/12/17 03/12/17 03/13/17 21:14 21:17 05:50 WBC RBC Hgb Hct MCV MCHC RDW Plt Count MPV Neutrophils % Lymphocytes % Monocytes % Eosinophils % Basophils % Sodium Potassium 4.5 D Chloride Carbon Dioxide Anion Gap BUN Creatinine POC Glucometer 87 120 Random Glucose Calcium Troponin I 03/13/17 03/13/17 07:00 07:00 WBC 14.6 H RBC 3.11 L Hgb 8.1 L Hct 25.2 L MCV 81.3 MCHC 32.1 RDW 18.3 H Plt Count 222 MPV 8.5 Neutrophils % 94.6 H Lymphocytes % 3.5 L D Monocytes % 1.8 L Eosinophils % 0.0 Basophils % 0.1 Sodium 139 Potassium 4.1 Chloride 97 L Carbon Dioxide 36 H Anion Gap 6 L BUN 14 D Creatinine 0.3 L POC Glucometer Random Glucose 85 Calcium 8.4 L Troponin I Active Medications Generic Name Dose Route Start Last Admin Trade Name Freq PRN Reason Stop Dose Admin Acetaminophen 1,000 mg 03/12/17 12:14 Tylenol - PO Q6H PRN PAIN Albuterol/Ipratropium 1 amp 03/13/17 10:30 Duoneb - NEB Q4H EMMY Baclofen 20 mg 03/12/17 14:00 03/13/17 07:03 Lioresal - PO 20 mg TID EMMY Administration Budesonide/Formoterol Fumarate 2 puff 03/12/17 22:00 03/13/17 10:08 Symbicort 160/4.5mcg - IH 2 puff BID EMMY Administration Cholecalciferol 2,000 unit 03/13/17 10:00 03/13/17 10:08 Vitamin D3 - PO 2,000 unit DAILY EMMY Administration Dexamethasone Sodium Phosphate 6 mg 03/12/17 22:00 03/13/17 10:04 Decadron Injection - IVPUSH 6 mg BID EMMY Administration Diltiazem HCl 60 mg 03/12/17 13:45 03/13/17 07:02 Cardizem - PO 60 mg Q6HPO EMMY Administration Diphenhydramine HCl 25 mg 03/12/17 12:14 Benadryl Oral Solution - PO Q4H PRN FOR ITCHING Docusate Sodium 100 mg 03/12/17 12:14 Colace - PO BID PRN CONSTIPATION Doxepin HCl 25 mg 03/12/17 22:00 03/12/17 21:29 [place]an - PO 25 mg HS EMMY Administration Eletriptan 40 mg 03/12/17 12:14 Relpax - PO Q6H PRN [place]AC[place] Gabapentin 300 mg 03/12/17 14:00 03/13/17 07:02 Neurontin - PO 300 mg TID EMMY Administration Guaifenesin 10 ml 03/12/17 12:14 Robitussin - PO Q6H PRN COUGH Guaifenesin 600 mg 03/12/17 22:00 03/13/17 10:10 Mucinex - PO 600 mg BID EMMY Administration Heparin Sodium (Porcine) 5,000 unit 04/20/17 14:00 03/13/17 07:03 Heparin - SQ 5,000 unit TID EMMY Administration Hydromorphone HCl 0.5 mg 03/12/17 12:14 03/13/17 10:00 Dilaudid Injection - IVPUSH 0.5 mg Q4H PRN Administration Pain 4-6 Insulin Aspart 1 vial 03/12/17 16:30 03/13/17 07:04 Novolog Vial Sliding Scale - SQ Not Given ACHS [facility] Protocol Insulin Detemir 5 units 03/12/17 16:30 03/13/17 07:03 Levemir Vial SQ 5 units BIDI [facility] Administration Levothyroxine Sodium 25 mcg 03/13/17 07:00 03/13/17 07:02 Synthroid - PO 25 mcg DAILY@0700 EMMY Administration Lidocaine 1 patch 03/13/17 10:00 03/13/17 10:03 Lidoderm Patch - TP Not Given DAILY [facility] Metoprolol Tartrate 25 mg 03/12/17 14:00 03/13/17 07:02 Lopressor - PO 25 mg TID [facility] Administration Mometasone Furoate 2 puff 03/13/17 10:00 03/13/17 10:08 Asmanex 220mcg - IH 2 puff DAILY EMMY Administration Multi-Ingredient Ointment 1 applic 03/12/17 22:00 03/13/17 10:15 Zinc Oxide TP Not Given BID [facility] Multivitamins/Minerals/Vitamin C 1 tab 03/13/17 10:00 03/13/17 10:10 Tab-A-Vit - PO 1 tab DAILY EMMY Administration Non-Formulary Medication 1 each 03/13/17 08:00 03/13/17 10:10 Patient's Own Med PO 1 each DAILY@0800 EMMY Administration Nystatin 500,000 units 03/12/17 18:00 03/13/17 07:03 Nystatin Oral Suspension - PO 500,000 units Q6HPO EMMY Administration Ondansetron HCl 4 mg 03/12/17 12:14 Zofran Injection IVPB Q6H PRN NAUSEA Pancrelipase 3 cap 03/12/17 17:30 03/13/17 10:[address] 6,000 Units Capsule PO Not Given TIDCM [facility] Pantoprazole Sodium 40 mg 03/13/17 10:00 03/13/17 10:09 Protonix - PO 40 mg DAILY EMMY Administration Roflumilast 500 mcg 03/13/17 10:00 03/13/17 10:09 Daliresp - PO 500 mcg DAILY EMMY Administration Sodium Chloride 2 spray 03/12/17 12:14 [place] Nasal [place] - NS TID PRN NASAL CONGESTION ASSESSMENT/PLAN: Patient is a 51 year old female with a past medical history of proximal atrial fib, hypertension, diabetes, COPD (home oxygen dependent), asthma, tracheostomy , uterine cancer, anxiety, depression and bipolar disorder. She presents to the ED on 02/23/2017 with nausea, diarrhea, productive cough, and left sided body pain. She was admitted to [place] with c/o of abdominal pain, diarrhea and acute COPD exacerbation. She was recently transferred from the ICU and was intubated and extubated multiple times secondary to respiratory failure. She was weaned off from intubation an now tolerating 2 liters of nasal cannula. She is home oxygen dependent. Pulmonary: Respiratory Failure secondary to COPD exacerbation - resolved Assessment/Plan: Tolerating 2 liters of nasal cannula with saturations of 95% Appears to be at her respiratory baseline Goal is to keep oxygen saturations >90% on 2 liters Support with duonebs, symbicort and asmanex Aspiration precautions Pulmonary following Continue to monitor respiratory status ID: Leukocytosis - improving Assessment/Plan: Monitor off antibiotics hemodynamically stable, likely secondary to chronic steroid use monitor for signs of infection Psyche Bipolar/anxiety/depression Assessment/Plan: continue psyche home meds Endocrine: Diabetes mellitus - chronic Assessment/Plan: Novolog sliding scale Monitor BGMs while on steroids Cardiology: Proxy Atrial Fib Currently in Sinus rhythm - On lopressor PO, Cardizem FEN Fluid: tolerating PO Electrolytes: Monitor labs Nutrition: soft diet Prophylaxis DVT: SCD, heparin SQ GI: Protonix Disposition: Continues to require inpatient hospitalization. Discharge planning: [facility] vs. home. Discussed code status with patient and we discussed intubation and CPR. She confirmed that she is a Full Code. Visit type - Emergency Visit Emergency Visit: Yes ED Registration Date: 02/24/17 Care time: The patient presented to the Emergency Department on the above date and was hospitalized for further evaluation of their emergent condition. - New Patient This patient is new to me today: No - Critical Care Critical Care patient: No - Discharge Referral Referred to [facility] Med [facility] No
[2017-03-13] MEDS: ONDANSETRON 4 MG/2 ML VIAL IVPB PRN ×2 (10:55→16:20)
--- NOTE | 2017-03-13 14:25 | PN ---
Progress Note, Physician History of Present Illness: pulmonary alert,comfortable,less congested - Current Medication List Current Medications: Active Medications Acetaminophen (Tylenol -) 1,000 mg PO Q6H PRN PRN Reason: PAIN Albuterol/Ipratropium (Duoneb -) 1 amp NEB Q4HWA [facility] Last Admin: 03/13/17 14:10 Dose: 1 amp Baclofen (Lioresal -) 20 mg PO TID [facility] Last Admin: 03/13/17 14:01 Dose: 20 mg Budesonide/Formoterol Fumarate (Symbicort 160/4.5mcg -) 2 puff IH BID [facility] Last Admin: 03/13/17 10:08 Dose: 2 puff Cholecalciferol (Vitamin D3 -) 2,000 unit PO DAILY [facility] Last Admin: 03/13/17 10:08 Dose: 2,000 unit Dexamethasone Sodium Phosphate (Decadron Injection -) 6 mg IVPUSH BID [facility] Last Admin: 03/13/17 10:04 Dose: 6 mg Diltiazem HCl (Cardizem -) 60 mg PO Q6HPO [facility] Last Admin: 03/13/17 11:28 Dose: 60 mg Diphenhydramine HCl (Benadryl Oral Solution -) 25 mg PO Q4H PRN PRN Reason: FOR ITCHING Docusate Sodium (Colace -) 100 mg PO BID PRN PRN Reason: CONSTIPATION Doxepin HCl (Sinequan -) 25 mg PO HS [facility] Last Admin: 03/12/17 21:29 Dose: 25 mg Eletriptan (Relpax -) 40 mg PO Q6H PRN PRN Reason: HEADACHE Gabapentin (Neurontin -) 300 mg PO TID [facility] Last Admin: 03/13/17 14:02 Dose: 300 mg Guaifenesin (Robitussin -) 10 ml PO Q6H PRN PRN Reason: COUGH Guaifenesin (Mucinex -) 600 mg PO BID [facility] Last Admin: 03/13/17 10:10 Dose: 600 mg Heparin Sodium (Porcine) (Heparin -) 5,000 unit SQ TID [facility] Last Admin: 03/13/17 14:01 Dose: 5,000 unit Hydromorphone HCl (Dilaudid Injection -) 0.5 mg IVPUSH Q4H PRN PRN Reason: Pain 4-6 Last Admin: 03/13/17 14:07 Dose: 0.5 mg Insulin Aspart (Novolog Vial Sliding Scale -) 1 vial SQ ACHS [facility] PRN Reason: Protocol Last Admin: 03/13/17 11:26 Dose: Not Given Insulin Detemir (Levemir Vial) 5 units SQ BIDI [facility] Last Admin: 03/13/17 07:03 Dose: 5 units Levothyroxine Sodium (Synthroid -) 25 mcg PO DAILY@0700 [facility] Last Admin: 03/13/17 07:02 Dose: 25 mcg Lidocaine (Lidoderm Patch -) 1 patch TP DAILY [facility] Last Admin: 03/13/17 10:03 Dose: Not Given Metoprolol Tartrate (Lopressor -) 25 mg PO TID [facility] Last Admin: 03/13/17 14:02 Dose: 25 mg Mometasone Furoate (Asmanex 220mcg -) 2 puff IH DAILY [facility] Last Admin: 03/13/17 10:08 Dose: 2 puff Multi-Ingredient Ointment (Zinc Oxide) 1 applic TP BID [facility] Last Admin: 03/13/17 10:15 Dose: Not Given Multivitamins/Minerals/Vitamin C (Tab-A-Vit -) 1 tab PO DAILY [facility] Last Admin: 03/13/17 10:10 Dose: 1 tab Non-Formulary Medication (Patient's Own Med) 1 each PO DAILY@0800 [facility] Last Admin: 03/13/17 10:10 Dose: 1 each Nystatin (Nystatin Oral Suspension -) 500,000 units PO Q6HPO [facility] Last Admin: 03/13/17 11:27 Dose: 500,000 units Ondansetron HCl (Zofran Injection) 4 mg IVPB Q6H PRN PRN Reason: NAUSEA Pancrelipase (Creon Dr 6,000 Units Capsule) 3 cap PO TIDCM [facility] Last Admin: 03/13/17 11:28 Dose: Not Given Pantoprazole Sodium (Protonix -) 40 mg PO DAILY [facility] Last Admin: 03/13/17 10:09 Dose: 40 mg Roflumilast (Daliresp -) 500 mcg PO DAILY [facility] Last Admin: 03/13/17 10:09 Dose: 500 mcg Sodium Chloride ([place] Nasal [place] -) 2 spray NS TID PRN PRN Reason: NASAL CONGESTION - Objective Vital Signs: Vital Signs Temperature 97.3 F L 03/13/17 10:00 Pulse Rate 90 03/13/17 10:00 Respiratory Rate 18 03/13/17 10:00 Blood Pressure 130/87 03/13/17 10:00 O2 Sat by Pulse Oximetry (%) 98 03/13/17 09:43 Constitutional: Yes: Well Nourished, Calm Eyes: Yes: WNL HENT: Yes: WNL Neck: Yes: WNL Cardiovascular: Yes: Regular Rate and Rhythm, S1, S2 Respiratory: Yes: Rhonchi, Wheezes (heriberto rhonchi and wheezes) Gastrointestinal: Yes: Normal Bowel Sounds, Soft Extremities: Yes: WNL Edema: Yes Labs: CBC, BMP 03/13/17 07:00 03/13/17 07:00 INR, PTT INR 1.04 (0.82-1.09) 03/03/17 05:30 Problem List - Problems (1) Acute exacerbation of COPD with asthma Code(s): J44.1 - CHRONIC OBSTRUCTIVE PULMONARY DISEASE W (ACUTE) EXACERBATION J45.901 - UNSPECIFIED ASTHMA WITH (ACUTE) EXACERBATION (2) Acute hypercapnic respiratory failure Code(s): J96.02 - ACUTE RESPIRATORY FAILURE WITH HYPERCAPNIA (3) Bronchitis Code(s): J40 - BRONCHITIS, NOT SPECIFIED ACUTE OR CHRONIC (4) Pneumonia due to Pseudomonas Code(s): J15.1 - PNEUMONIA DUE TO PSEUDOMONAS (5) Acute and chronic respiratory failure Code(s): J96.20 - ACUTE AND CHR RESP FAILURE, UNSP W HYPOXIA OR HYPERCAPNIA Qualifiers: Respiratory failure complication: hypoxia Qualified Code(s): J96.21 - Acute and chronic respiratory failure with hypoxia (6) Anxiety Code(s): F41.9 - ANXIETY DISORDER, UNSPECIFIED (7) Bipolar 2 disorder Code(s): F31.81 - BIPOLAR II DISORDER (8) Chronic back pain Code(s): M54.9 - DORSALGIA, UNSPECIFIED G89.29 - OTHER CHRONIC PAIN (9) Depression with anxiety Code(s): F41.8 - OTHER SPECIFIED ANXIETY DISORDERS (10) HTN (hypertension) Code(s): I10 - ESSENTIAL (PRIMARY) HYPERTENSION Qualifiers: (11) Hyperlipidemia Code(s): E78.5 - HYPERLIPIDEMIA, UNSPECIFIED (12) Obesity (BMI 30.0-34.9) Code(s): E66.9 - OBESITY, UNSPECIFIED Assessment/Plan ASSESSMENT AND PLAN: Acute on Chronic Hypoxic and Hypercapneic Respiratory Failure improving Acute COPD/Asthma Exacerbation r/o Pneumonia Atrial Fibrillation HTN Chronic Pain Syndrome/Opiate Dependent - steroids po in am - inhaled bronchodilators standing and PRN - monitor H/H - titrate FiO2 to keep SpO2 >90% - rate control - PO as tolerated - OOB to chair - DVT/GI prophylaxis DR RUFFIN
[2017-03-13] MEDS ORDERED: DEXAMETHASONE SOD PHOSPHATE 10 MG/1 ML VIAL IVPUSH SCH (14:26)
[2017-03-13] MEDS: DOXEPIN HCL 25 MG CAPSULE PO SCH (21:51)
[2017-03-13] MEDS: guaiFENesin 200 MG/10 ML 10 ML UNIT-DOSE CUPS PO PRN (22:01)
[2017-03-14] MEDS: NYSTATIN 500,000 UNITS/5 ML SUSPENSION PO SCH ×5 (00:35→23:01)
[2017-03-14] MEDS: dilTIAZem HCL 60 MG TABLET (FP) PO SCH ×5 (00:40→23:01)
[2017-03-14] MEDS: HYDROmorphone HCL CARPU-JECT 1 MG/1 ML DISP.SYRIN IVPUSH PRN ×4 (03:27→20:13)
[2017-03-14] MEDS ORDERED: PT OWN MED DRAWER 7, Y5N ONE ×3 (04:51→22:48)
[2017-03-14] MEDS: METOPROLOL TARTRATE 25 MG TABLET (FP) PO SCH ×3 (05:07→22:59)
[2017-03-14] MEDS: BACLOFEN 10 MG TABLET (FP) PO SCH ×3 (05:07→22:57)
[2017-03-14] MEDS: GABAPENTIN 300 MG CAPSULE (FP) PO SCH ×3 (05:07→22:58)
[2017-03-14] MEDS: HEPARIN NA (PORCINE) 5,000 UNITS/ML 1ML VIAL SQ SCH ×3 (05:09→22:59)
[2017-03-14] MEDS: ONDANSETRON 4 MG/2 ML VIAL IVPB PRN ×3 (05:37→23:20)
[2017-03-14] MEDS: ALBUTEROL SO4 2.5/IPRATROPIUM 0.5 INH SOL 3 ML VIAL.NEB. NEB SCH ×5 (06:18→22:05)
[2017-03-14] MEDS: LEVOTHYROXINE NA 25 MCG TABLET (FP) PO SCH (06:44)
[2017-03-14 07:35] LABS: BASOPHIL 0.1 % (0-2.0); EOSINOPHIL 0.2 % (0-4.5); MCH 26.1 pg (25.7-33.7); MCHC 31.8 g/dl (32.0-36.0); MEAN CELL VOLUME 82.2 fl (80-96); MEAN PLT VOLUME 8.4 fl (7.5-11.1); NEUTROPHILS 88.5 % (42.8-82.8); PLATELET COUNT 232 K/MM3 (134-434); RDW 18.6 % (11.6-15.6); WHITE BLOOD COUNT 12.5 K/mm3 (4.0-10.0)
[2017-03-14] MEDS: INSULIN SLIDING SCALE (NOVOLOG) 1 VIAL SQ SCH ×4 (07:53→22:59)
[2017-03-14 08:02] LABS: ALBUMIN 2.8 g/dl (3.4-5.0); ANION GAP 8 (8-16); CALCIUM 8.8 mg/dL (8.5-10.1); CO2 36 mmol/L (21-32); CREATININE 0.4 mg/dL (0.55-1.02); GLUCOSE,RANDOM 97 mg/dL (74-106); SGOT/AST 8 U/L (15-37); SGPT/ALT 42 U/L (12-78)
[2017-03-14 08:04] LABS: ALK PHOS 181 U/L (45-117); BILIRUBIN,TOTAL 0.6 mg/dL (0.2-1.0)
[2017-03-14] MEDS: LIPASE/PROTEASE/AMYLASE 6,000 UNIT CAPSULE PO SCH ×3 (10:02→18:18)
[2017-03-14] MEDS: MOMETASONE FUROATE 220 MCG/IH INHALER IH SCH (10:03)
[2017-03-14] MEDS: ROFLUMILAST 500 MCG TABLET PO SCH (10:04)
[2017-03-14] MEDS: DEXAMETHASONE SOD PHOSPHATE 10 MG/1 ML VIAL IVPUSH SCH ×3 (10:04→22:58)
[2017-03-14] MEDS: LIDOCAINE 5% TOPICAL PATCH TP SCH (10:05)
[2017-03-14] MEDS: guaiFENesin 600 MG TABLET.ER (FP) PO SCH ×2 (10:05→22:59)
[2017-03-14] MEDS: PANTOPRAZOLE 40 MG TABLET (FP) PO SCH (10:05)
[2017-03-14] MEDS: MULTIVITAMINS (DAILY MVI) TABLET (FP) PO SCH (10:06)
[2017-03-14] MEDS: BUDESONIDE/FORMETEROL FUMARATE 160/4.5 mcg INHALER IH SCH ×2 (10:06→22:57)
[2017-03-14] MEDS: ZINC OXIDE 20% TOPICAL OINTMENT 30 GM TUBE TP SCH ×2 (10:06→23:00)
[2017-03-14] MEDS: CHOLECALCIFEROL (VITAMIN D3) 1,000 UNIT TABLET (FP) PO SCH (10:06)
--- NOTE | 2017-03-14 11:09 | PN ---
Progress Note, Physician History of Present Illness: pulmonary alert,on bipap ,-resp distress,+ green sputum - Current Medication List Current Medications: Active Medications Acetaminophen (Tylenol -) 1,000 mg PO Q6H PRN PRN Reason: PAIN Albuterol/Ipratropium (Duoneb -) 1 amp NEB Q4HWA [facility] Last Admin: 03/14/17 09:49 Dose: 1 amp Baclofen (Lioresal -) 20 mg PO TID [facility] Last Admin: 03/14/17 05:07 Dose: 20 mg Budesonide/Formoterol Fumarate (Symbicort 160/4.5mcg -) 2 puff IH BID [facility] Last Admin: 03/14/17 10:06 Dose: 2 puff Cholecalciferol (Vitamin D3 -) 2,000 unit PO DAILY [facility] Last Admin: 03/14/17 10:06 Dose: 2,000 unit Dexamethasone Sodium Phosphate (Decadron Injection -) 4 mg IVPUSH BID [facility] Last Admin: 03/14/17 10:04 Dose: 4 mg Diltiazem HCl (Cardizem -) 60 mg PO Q6HPO [facility] Last Admin: 03/14/17 05:07 Dose: 60 mg Diphenhydramine HCl (Benadryl Oral Solution -) 25 mg PO Q4H PRN PRN Reason: FOR ITCHING Docusate Sodium (Colace -) 100 mg PO BID PRN PRN Reason: CONSTIPATION Doxepin HCl (Sinequan -) 25 mg PO HS [facility] Last Admin: 03/13/17 21:51 Dose: 25 mg Eletriptan (Relpax -) 40 mg PO Q6H PRN PRN Reason: HEADACHE Gabapentin (Neurontin -) 300 mg PO TID [facility] Last Admin: 03/14/17 05:07 Dose: 300 mg Guaifenesin (Robitussin -) 10 ml PO Q6H PRN PRN Reason: COUGH Last Admin: 03/13/17 22:01 Dose: 10 ml Guaifenesin (Mucinex -) 600 mg PO BID [facility] Last Admin: 03/14/17 10:05 Dose: 600 mg Heparin Sodium (Porcine) (Heparin -) 5,000 unit SQ TID [facility] Last Admin: 03/14/17 05:09 Dose: 5,000 unit Hydromorphone HCl (Dilaudid Injection -) 0.5 mg IVPUSH Q4H PRN PRN Reason: Pain 4-6 Last Admin: 03/14/17 09:11 Dose: 0.5 mg Insulin Aspart (Novolog Vial Sliding Scale -) 1 vial SQ ACHS [facility] PRN Reason: Protocol Last Admin: 03/14/17 07:53 Dose: Not Given Insulin Detemir (Levemir Vial) 5 units SQ BIDI [facility] Last Admin: 03/13/17 17:06 Dose: 5 units Levothyroxine Sodium (Synthroid -) 25 mcg PO DAILY@0700 [facility] Last Admin: 03/14/17 06:44 Dose: 25 mcg Lidocaine (Lidoderm Patch -) 1 patch TP DAILY [facility] Last Admin: 03/14/17 10:05 Dose: Not Given Metoprolol Tartrate (Lopressor -) 25 mg PO TID [facility] Last Admin: 03/14/17 05:07 Dose: 25 mg Mometasone Furoate (Asmanex 220mcg -) 2 puff IH DAILY [facility] Last Admin: 03/14/17 10:03 Dose: 2 puff Multi-Ingredient Ointment (Zinc Oxide) 1 applic TP BID [facility] Last Admin: 03/14/17 10:06 Dose: Not Given Multivitamins/Minerals/Vitamin C (Tab-A-Vit -) 1 tab PO DAILY [facility] Last Admin: 03/14/17 10:06 Dose: 1 tab Non-Formulary Medication (Patient's Own Med) 1 each PO DAILY@0800 [facility] Last Admin: 03/14/17 10:03 Dose: 1 each Nystatin (Nystatin Oral Suspension -) 500,000 units PO Q6HPO [facility] Last Admin: 03/14/17 05:07 Dose: 500,000 units Ondansetron HCl (Zofran Injection) 4 mg IVPB Q6H PRN PRN Reason: NAUSEA Last Admin: 03/14/17 05:37 Dose: 4 mg Pancrelipase (Creon Dr 6,000 Units Capsule) 3 cap PO TIDCM [facility] Last Admin: 03/14/17 10:02 Dose: Not Given Pantoprazole Sodium (Protonix -) 40 mg PO DAILY [facility] Last Admin: 03/14/17 10:05 Dose: 40 mg Roflumilast (Daliresp -) 500 mcg PO DAILY [facility] Last Admin: 03/14/17 10:04 Dose: 500 mcg Sodium Chloride ([place] Nasal [place] -) 2 spray NS TID PRN PRN Reason: NASAL CONGESTION - Objective Vital Signs: Vital Signs Temperature 98.2 F 03/14/17 06:00 Pulse Rate 91 H 03/14/17 09:50 Respiratory Rate 20 03/14/17 06:00 Blood Pressure 116/95 03/14/17 06:00 O2 Sat by Pulse Oximetry (%) 98 03/14/17 09:50 Constitutional: Yes: Well Nourished, Calm Eyes: Yes: WNL HENT: Yes: WNL Neck: Yes: WNL Cardiovascular: Yes: Pulse Irregular, S1, S2 Respiratory: Yes: Rhonchi, Wheezes (bilateral wheezes and rhonchi) Gastrointestinal: Yes: Normal Bowel Sounds, Soft Extremities: Yes: WNL Edema: Yes Labs: CBC, BMP 03/14/17 06:30 03/14/17 06:30 INR, PTT INR 1.04 (0.82-1.09) 03/03/17 05:30 Problem List - Problems (1) Acute exacerbation of COPD with asthma Code(s): J44.1 - CHRONIC OBSTRUCTIVE PULMONARY DISEASE W (ACUTE) EXACERBATION J45.901 - UNSPECIFIED ASTHMA WITH (ACUTE) EXACERBATION (2) Acute hypercapnic respiratory failure Code(s): J96.02 - ACUTE RESPIRATORY FAILURE WITH HYPERCAPNIA (3) Bronchitis Code(s): J40 - BRONCHITIS, NOT SPECIFIED ACUTE OR CHRONIC (4) Pneumonia due to Pseudomonas Code(s): J15.1 - PNEUMONIA DUE TO PSEUDOMONAS (5) Acute and chronic respiratory failure Code(s): J96.20 - ACUTE AND CHR RESP FAILURE, UNSP W HYPOXIA OR HYPERCAPNIA Qualifiers: Respiratory failure complication: hypoxia Qualified Code(s): J96.21 - Acute and chronic respiratory failure with hypoxia (6) Anxiety Code(s): F41.9 - ANXIETY DISORDER, UNSPECIFIED (7) Bipolar 2 disorder Code(s): F31.81 - BIPOLAR II DISORDER (8) Chronic back pain Code(s): M54.9 - DORSALGIA, UNSPECIFIED G89.29 - OTHER CHRONIC PAIN (9) Depression with anxiety Code(s): F41.8 - OTHER SPECIFIED ANXIETY DISORDERS (10) HTN (hypertension) Code(s): I10 - ESSENTIAL (PRIMARY) HYPERTENSION Qualifiers: (11) Hyperlipidemia Code(s): E78.5 - HYPERLIPIDEMIA, UNSPECIFIED (12) Obesity (BMI 30.0-34.9) Code(s): E66.9 - OBESITY, UNSPECIFIED Assessment/Plan ASSESSMENT AND PLAN: Acute on Chronic Hypoxic and Hypercapneic Respiratory Failure improving Acute COPD/Asthma Exacerbation r/o Pneumonia Atrial Fibrillation HTN Chronic Pain Syndrome/Opiate Dependent - steroids po in am - inhaled bronchodilators standing and PRN - monitor H/H - titrate FiO2 to keep SpO2 >90% - bipapprn - rate control - PO as tolerated - OOB to chair - DVT/GI prophylaxis - sputum c+s - chest x-ray DR RUFFIN
[2017-03-14] MEDS ORDERED: ONDANSETRON 4 MG/2 ML VIAL IVPUSH ONE (14:05)
--- NOTE | 2017-03-14 15:00 | PN ---
Physical Exam: SUBJECTIVE: Patient seen and examined. States she feels congested. Having yellow/baker sputum OBJECTIVE: On bipap - tolerating same patient saved sputum for me to look at - it was noted to be yellow/baker in color Will order sputum culture Chest xray ordered by pulm. Monitor respiratory status Vital Signs Period Temp Pulse Resp BP Sys/Dan Pulse Ox Last 24 Hr 97.2 F-98.7 F 87-97 20-24 99-121/55-95 96-99 GENERAL: The patient is awake, alert, and fully oriented, in no acute distress. HEAD: Normal with no signs of trauma. EYES: PERRL, extraocular movements intact, sclera anicteric, conjunctiva clear. No ptosis. ENT: Ears normal, nares patent, oropharynx clear without exudates, moist mucous membranes. NECK: Trachea midline, full range of motion, supple. LUNGS: scattered rhonchi on bilateral lungs posteriorly, in no acute distress. HEART: Regular rate and rhythm - sinus tachy @110 on monitor ABDOMEN: Soft, nontender, nondistended, normoactive bowel sounds, no guarding, no rebound, no hepatosplenomegaly, no masses. EXTREMITIES: no edema. NEUROLOGICAL: Normal speech, gait not observed. PSYCH: Normal mood, normal affect. SKIN: Warm, dry, normal turgor, no rashes or lesions noted Laboratory Results - last 24 hr 03/13/17 03/13/17 03/14/17 16:15 20:00 05:27 WBC RBC Hgb Hct MCV MCHC RDW Plt Count MPV Neutrophils % Lymphocytes % Monocytes % Eosinophils % Basophils % Sodium Potassium Chloride Carbon Dioxide Anion Gap BUN Creatinine Creat Clearance w eGFR POC Glucometer 179 230 108 Random Glucose Calcium Total Bilirubin AST ALT Alkaline Phosphatase Total Protein Albumin 03/14/17 03/14/17 03/14/17 06:30 06:30 11:38 WBC 12.5 H RBC 3.08 L Hgb 8.0 L Hct 25.3 L MCV 82.2 MCHC 31.8 L RDW 18.6 H Plt Count 232 MPV 8.4 Neutrophils % 88.5 H Lymphocytes % 7.9 L D Monocytes % 3.3 L D Eosinophils % 0.2 D Basophils % 0.1 Sodium 142 Potassium 3.5 Chloride 98 Carbon Dioxide 36 H Anion Gap 8 BUN 17 D Creatinine 0.4 L D Creat Clearance w eGFR > 60 POC Glucometer 126 Random Glucose 97 Calcium 8.8 Total Bilirubin 0.6 AST 8 L ALT 42 Alkaline Phosphatase 181 H D Total Protein 6.0 L Albumin 2.8 L Active Medications Generic Name Dose Route Start Last Admin Trade Name Freq PRN Reason Stop Dose Admin Acetaminophen 1,000 mg 03/12/17 12:14 Tylenol - PO Q6H PRN PAIN Albuterol/Ipratropium 1 amp 03/13/17 10:30 03/14/17 13:28 Duoneb - NEB 1 amp Q4HWA [facility] Administration Baclofen 20 mg 03/12/17 14:00 03/14/17 14:19 Lioresal - PO 20 mg TID [facility] Administration Budesonide/Formoterol Fumarate 2 puff 03/12/17 22:00 03/14/17 10:06 Symbicort 160/4.5mcg - IH 2 puff BID [facility] Administration Cholecalciferol 2,000 unit 03/13/17 10:00 03/14/17 10:06 Vitamin D3 - PO 2,000 unit DAILY [facility] Administration Dexamethasone Sodium Phosphate 6 mg 03/14/17 12:15 03/14/17 12:21 Decadron Injection - IVPUSH Not Given BID [facility] Diltiazem HCl 60 mg 03/12/17 13:45 03/14/17 11:29 Cardizem - PO 60 mg Q6HPO [facility] Administration Diphenhydramine HCl 25 mg 03/12/17 12:14 Benadryl Oral Solution - PO Q4H PRN FOR ITCHING Docusate Sodium 100 mg 03/12/17 12:14 Colace - PO BID PRN CONSTIPATION Doxepin HCl 25 mg 03/12/17 22:00 03/13/17 21:51 Sinequan - PO 25 mg HS [facility] Administration Eletriptan 40 mg 03/12/17 12:14 Relpax - PO Q6H PRN HEADACHE Gabapentin 300 mg 03/12/17 14:00 03/14/17 14:19 Neurontin - PO 300 mg TID [facility] Administration Guaifenesin 10 ml 03/12/17 12:14 03/13/17 22:01 Robitussin - PO 10 ml Q6H PRN Administration COUGH Guaifenesin 600 mg 03/12/17 22:00 03/14/17 10:05 Mucinex - PO 600 mg BID [facility] Administration Heparin Sodium (Porcine) 5,000 unit 03/12/17 14:00 03/14/17 14:19 Heparin - SQ 5,000 unit TID [facility] Administration Hydromorphone HCl 0.5 mg 03/12/17 12:14 03/14/17 09:11 Dilaudid Injection - IVPUSH 0.5 mg Q4H PRN Administration Pain 4-6 Insulin Aspart 1 vial 03/12/17 16:30 03/14/17 11:40 Novolog Vial Sliding Scale - SQ Not Given ACHS [facility] Protocol Insulin Detemir 5 units 03/12/17 16:30 03/13/17 17:06 Levemir Vial SQ 5 units BIDI [facility] Administration Levothyroxine Sodium 25 mcg 03/13/17 07:00 03/14/17 06:44 Synthroid - PO 25 mcg DAILY@0700 [facility] Administration Lidocaine 1 patch 03/13/17 10:00 03/14/17 10:05 Lidoderm Patch - TP Not Given DAILY [facility] Metoprolol Tartrate 25 mg 03/12/17 14:00 03/14/17 14:19 Lopressor - PO 25 mg TID [facility] Administration Mometasone Furoate 2 puff 03/13/17 10:00 03/14/17 10:03 Asmanex 220mcg - IH 2 puff DAILY [facility] Administration Multi-Ingredient Ointment 1 applic 03/12/17 22:00 03/14/17 10:06 Zinc Oxide TP Not Given BID [facility] Multivitamins/Minerals/Vitamin C 1 tab 03/13/17 10:00 03/14/17 10:06 Tab-A-Vit - PO 1 tab DAILY [facility] Administration Non-Formulary Medication 1 each 03/13/17 08:00 03/14/17 10:03 Patient's Own Med PO 1 each DAILY@0800 [facility] Administration Nystatin 500,000 units 03/12/17 18:00 03/14/17 11:29 Nystatin Oral Suspension - PO 500,000 units Q6HPO [facility] Administration Ondansetron HCl 4 mg 03/12/17 12:14 03/14/17 11:08 Zofran Injection IVPB 4 mg Q6H PRN Administration NAUSEA Pancrelipase 3 cap 03/12/17 17:30 03/14/17 12:00 Eamon Turner 6,000 Units Capsule PO Not Given TIDCM [facility] Pantoprazole Sodium 40 mg 03/13/17 10:00 03/14/17 10:05 Protonix - PO 40 mg DAILY [facility] Administration Roflumilast 500 mcg 03/13/17 10:00 03/14/17 10:04 Daliresp - PO 500 mcg DAILY [facility] Administration Sodium Chloride 2 spray 03/12/17 12:14 [place] Nasal [place] - NS TID PRN NASAL CONGESTION Assessment/Plan: Patient is a 51 year old female with a past medical history of proximal atrial fib, hypertension, diabetes, COPD (home oxygen dependent), asthma, tracheostomy , uterine cancer, anxiety, depression and bipolar disorder. She presents to the ED on 02/23/2017 with nausea, diarrhea, productive cough, and left sided body pain. She was admitted to [facility] with c/o of abdominal pain, diarrhea and acute COPD exacerbation. She was recently transferred from the ICU and was intubated and extubated multiple times secondary to respiratory failure. She was weaned off from intubation and now tolerating 2 liters of nasal cannula alternating with bipap. She is home oxygen dependent. Imaging: Chest Xray 03/14/2017: possible left patchy infiltrate Pulmonary: Respiratory Failure secondary to COPD exacerbation Assessment/Plan: Tolerating 2 liters of nasal cannula with saturations of 95% Alternated with bipap therapy Appears to be at her respiratory baseline but states she is congested today Goal is to keep oxygen saturations >90% on 2 liters of nasal cannula Sputum re-cultured, chest xray shows Chest Xray 03/14/2017: possible left patch infiltrate Will repeat chest xray in a.m. and await sputum cultures Support with duonebs, symbicort and asmanex Aspiration precautions Pulmonary following Continue to monitor respiratory status Pneumonia/Leukocytosis - improving Assessment/Plan: Monitor off antibiotics Has completed Zosyn therapy from 03/03 to 03/09. Also completed 4 days of Vancomycin Repeating sputum culture and chest xray to be repeated in a.m. hemodynamically stable, afebrile Psyche: Bipolar/anxiety/depression Assessment/Plan: continue psyche home meds Endocrine: Diabetes mellitus - chronic Assessment/Plan: Novolog sliding scale Monitor BGMs while on steroids Cardiology: Proxy Atrial Fib Currently in Sinus rhythm - On lopressor PO, Cardizem FEN Fluid: tolerating PO Electrolytes: Monitor labs Nutrition: soft diet Prophylaxis DVT: SCD, heparin SQ GI: Protonix Disposition: Continues to require inpatient hospitalization. Discharge planning: [facility] vs. home. Discussed code status with patient and we discussed intubation and CPR. She confirmed that she is a Full Code. Visit type - Emergency Visit Emergency Visit: Yes ED Registration Date: 02/24/17 Care time: The patient presented to the Emergency Department on the above date and was hospitalized for further evaluation of their emergent condition. - New Patient This patient is new to me today: No - Critical Care Critical Care patient: No - Discharge Referral Referred to [facility] Med [facility] No
[2017-03-14] MEDS ORDERED: INSULIN (NOVOLOG) ASPART 100 UNITS/ML 10ML VIAL ONE (16:31)
[2017-03-14] MEDS: INSULIN DETEMIR 100 UNITS/ML MDV SQ SCH (18:17)
[2017-03-14] MEDS ORDERED: LOPERAMIDE HCL 2 MG CAPSULE PO ONE (21:58)
[2017-03-14] MEDS: DOXEPIN HCL 25 MG CAPSULE PO SCH (22:57)
[2017-03-14] MEDS: diphenhydrAMINE HCL 12.5 MG/5 ML UNIT-DOSE CUPS PO PRN (23:20)
[2017-03-15] MEDS: HYDROmorphone HCL CARPU-JECT 1 MG/1 ML DISP.SYRIN IVPUSH PRN ×4 (00:25→23:01)
[2017-03-15] MEDS ORDERED: PT OWN MED DRAWER 7, Y5N ONE ×4 (05:05→21:38)
[2017-03-15] MEDS: METOPROLOL TARTRATE 25 MG TABLET (FP) PO SCH ×3 (05:32→23:00)
[2017-03-15] MEDS: BACLOFEN 10 MG TABLET (FP) PO SCH ×3 (05:32→23:00)
[2017-03-15] MEDS: HEPARIN NA (PORCINE) 5,000 UNITS/ML 1ML VIAL SQ SCH ×3 (05:32→23:00)
[2017-03-15] MEDS: GABAPENTIN 300 MG CAPSULE (FP) PO SCH ×3 (05:32→23:00)
[2017-03-15] MEDS: dilTIAZem HCL 60 MG TABLET (FP) PO SCH ×3 (05:32→17:07)
[2017-03-15] MEDS: NYSTATIN 500,000 UNITS/5 ML SUSPENSION PO SCH ×3 (05:38→16:59)
[2017-03-15] MEDS: LEVOTHYROXINE NA 25 MCG TABLET (FP) PO SCH (06:04)
[2017-03-15] MEDS: INSULIN SLIDING SCALE (NOVOLOG) 1 VIAL SQ SCH ×4 (06:04→23:00)
[2017-03-15] MEDS: INSULIN DETEMIR 100 UNITS/ML MDV SQ SCH ×2 (06:05→17:06)
[2017-03-15] MEDS: ALBUTEROL SO4 2.5/IPRATROPIUM 0.5 INH SOL 3 ML VIAL.NEB. NEB SCH ×5 (06:05→21:55)
[2017-03-15 08:00] LABS: BASOPHIL 0.2 % (0-2.0); MCH 26.7 pg (25.7-33.7); MCHC 32.6 g/dl (32.0-36.0); MEAN CELL VOLUME 82.1 fl (80-96); MEAN PLT VOLUME 8.8 fl (7.5-11.1); NEUTROPHILS 94.3 % (42.8-82.8); PLATELET COUNT 224 K/MM3 (134-434); RDW 18.5 % (11.6-15.6); WHITE BLOOD COUNT 7.6 K/mm3 (4.0-10.0)
[2017-03-15 08:38] LABS: ALBUMIN 2.7 g/dl (3.4-5.0); ALK PHOS 201 U/L (45-117); ANION GAP 8 (8-16); BILIRUBIN,TOTAL 0.7 mg/dL (0.2-1.0); CALCIUM 8.5 mg/dL (8.5-10.1); CO2 33 mmol/L (21-32); COCKROFT - GAULT 0; CREATININE 0.4 mg/dL (0.55-1.02); GLUCOSE,RANDOM 158 mg/dL (74-106); SGOT/AST 7 U/L (15-37); SGPT/ALT 35 U/L (12-78); TOT PROT 5.9 g/dl (6.4-8.2)
--- NOTE | 2017-03-15 08:41 | PN ---
Physical Exam: SUBJECTIVE: Patient seen and examined. Patient states she feels less congested today. She denies shortness of breath, she denies chest pain. OBJECTIVE: Sitting up in bed, eating her breakfast Patient states she feels less congested today. Tolerating 2-3 liters of nasal cannula No dyspnea on exam Patient asking for physical therapy Vital Signs Period Temp Pulse Resp BP Sys/Dan Pulse Ox Last 24 Hr 97.7 F-98.3 F 80-113 20-24 92-138/57-90 96-99 GENERAL: The patient is awake, alert, and fully oriented, in no acute distress. HEAD: Normal with no signs of trauma. EYES: PERRL, extraocular movements intact, sclera anicteric, conjunctiva clear. No ptosis. ENT: Ears normal, nares patent, oropharynx clear without exudates, moist mucous membranes. NECK: Trachea midline, full range of motion, supple. LUNGS: scattered rhonchi on bilateral lungs posteriorly, in no acute distress. HEART: Regular rate and rhythm - sinus rhythm @ 78 ABDOMEN: Soft, nontender, nondistended, normoactive bowel sounds, no guarding, no rebound, no hepatosplenomegaly, no masses. EXTREMITIES: no edema. NEUROLOGICAL: Normal speech, gait not observed. PSYCH: Normal mood, normal affect. SKIN: Warm, dry, normal turgor, no rashes or lesions noted Laboratory Results - last 24 hr 03/14/17 03/14/17 03/14/17 11:38 16:09 22:54 WBC RBC Hgb Hct MCV MCHC RDW Plt Count MPV Neutrophils % Lymphocytes % Monocytes % Eosinophils % Basophils % POC Glucometer 126 177 164 03/15/17 03/15/17 05:29 06:10 WBC 7.6 D RBC 2.90 L Hgb 7.8 L Hct 23.8 L MCV 82.1 MCHC 32.6 RDW 18.5 H Plt Count 224 MPV 8.8 Neutrophils % 94.3 H Lymphocytes % 4.2 L D Monocytes % 1.3 L Eosinophils % 0.0 D Basophils % 0.2 POC Glucometer 181 Active Medications Generic Name Dose Route Start Last Admin Trade Name Freq PRN Reason Stop Dose Admin Acetaminophen 1,000 mg 03/12/17 12:14 Tylenol - PO Q6H PRN PAIN Albuterol/Ipratropium 1 amp 03/13/17 10:30 03/15/17 06:05 Duoneb - NEB 1 amp Q4HWA EMMY Administration Baclofen 20 mg 03/12/17 14:00 03/15/17 05:32 Lioresal - PO 20 mg TID EMMY Administration Budesonide/Formoterol Fumarate 2 puff 03/12/17 22:00 03/14/17 22:57 Symbicort 160/4.5mcg - IH 2 puff BID EMMY Administration Cholecalciferol 2,000 unit 03/13/17 10:00 03/14/17 10:06 Vitamin D3 - PO 2,000 unit DAILY EMMY Administration Dexamethasone Sodium Phosphate 6 mg 03/14/17 12:15 03/14/17 22:58 Decadron Injection - IVPUSH 6 mg BID EMMY Administration Diltiazem HCl 60 mg 03/12/17 13:45 03/15/17 05:32 Cardizem - PO 60 mg Q6HPO EMMY Administration Diphenhydramine HCl 25 mg 03/12/17 12:14 03/14/17 23:20 Benadryl Oral Solution - PO 25 mg Q4H PRN Administration FOR ITCHING Docusate Sodium 100 mg 03/12/17 12:14 Colace - PO BID PRN CONSTIPATION Doxepin HCl 25 mg 03/12/17 22:00 03/14/17 22:57 Sinequan - PO 25 mg HS EMMY Administration Eletriptan 40 mg 03/12/17 12:14 Relpax - PO Q6H PRN HEADACHE Gabapentin 300 mg 03/12/17 14:00 03/15/17 05:32 Neurontin - PO 300 mg TID EMMY Administration Guaifenesin 10 ml 03/12/17 12:14 03/13/17 22:01 Robitussin - PO 10 ml Q6H PRN Administration COUGH Guaifenesin 600 mg 03/12/17 22:00 03/14/17 22:59 Mucinex - PO 600 mg BID EMMY Administration Heparin Sodium (Porcine) 5,000 unit 03/12/17 14:00 03/15/17 05:32 Heparin - SQ 5,000 unit TID EMMY Administration Hydromorphone HCl 0.5 mg 03/12/17 12:14 03/15/17 00:25 Dilaudid Injection - IVPUSH 0.5 mg Q4H PRN Administration Pain 4-6 Insulin Aspart 1 vial 03/12/17 16:30 03/15/17 06:04 Novolog Vial Sliding Scale - SQ 2 units ACHS EMMY Administration Protocol Insulin Detemir 5 units 03/12/17 16:30 03/15/17 06:05 Levemir Vial SQ 5 units BIDI EMMY Administration Levothyroxine Sodium 25 mcg 03/13/17 07:00 03/15/17 06:04 Synthroid - PO 25 mcg DAILY@0700 EMMY Administration Lidocaine 1 patch 03/13/17 10:00 03/14/17 10:05 Lidoderm Patch - TP Not Given DAILY EMMY Metoprolol Tartrate 25 mg 03/12/17 14:00 03/15/17 05:32 Lopressor - PO 25 mg TID EMMY Administration Mometasone Furoate 2 puff 03/13/17 10:00 03/14/17 10:03 Asmanex 220mcg - IH 2 puff DAILY EMMY Administration Multi-Ingredient Ointment 1 applic 03/12/17 22:00 03/14/17 23:00 Zinc Oxide TP Not Given BID EMMY Multivitamins/Minerals/Vitamin C 1 tab 03/13/17 10:00 03/14/17 10:06 Tab-A-Vit - PO 1 tab DAILY EMMY Administration Non-Formulary Medication 1 each 03/13/17 08:00 03/14/17 10:03 Patient's Own Med PO 1 each DAILY@0800 EMMY Administration Nystatin 500,000 units 03/12/17 18:00 03/15/17 05:38 Nystatin Oral Suspension - PO 500,000 units Q6HPO EMMY Administration Ondansetron HCl 4 mg 03/12/17 12:14 03/14/17 23:20 Zofran Injection IVPB 4 mg Q6H PRN Administration NAUSEA Pancrelipase 3 cap 03/12/17 17:30 03/14/17 18:18 Eamon Turner 6,000 Units Capsule PO Not Given TIDCM EMMY Pantoprazole Sodium 40 mg 03/13/17 10:00 03/14/17 10:05 Protonix - PO 40 mg DAILY EMMY Administration Roflumilast 500 mcg 03/13/17 10:00 03/14/17 10:04 Daliresp - PO 500 mcg DAILY EMMY Administration Sodium Chloride 2 spray 03/12/17 12:14 [place] Nasal [place] - NS TID PRN NASAL CONGESTION ASSESSMENT/PLAN: Patient is a 51 year old female with a past medical history of proximal atrial fib, hypertension, diabetes, COPD (home oxygen dependent), asthma, tracheostomy , uterine cancer, anxiety, depression and bipolar disorder. She presents to the ED on 02/23/2017 with nausea, diarrhea, productive cough, and left sided body pain. She was admitted to [facility] with c/o of abdominal pain, diarrhea and acute COPD exacerbation. She was recently transferred from the ICU and was intubated and extubated multiple times secondary to respiratory failure. She was weaned off from intubation and now tolerating 2 liters of nasal cannula alternating with bipap. She is home oxygen dependent. Imaging: Chest Xray 03/14/2017: possible left patchy infiltrate Pulmonary: Respiratory Failure secondary to COPD exacerbation Assessment/Plan: Tolerating 2 liters of nasal cannula with saturations of 95% Alternated with bipap therapy Appears to be at her respiratory baseline-states she is less congested Goal is to keep oxygen saturations >90% on 2 liters of nasal cannula Sputum re-cultured, currently pending Chest xray 03/15 with no signs of a discrete infiltrate Support with duonebs, symbicort and asmanex Aspiration precautions Pulmonary following Continue to monitor respiratory status Pneumonia/Leukocytosis Assessment/Plan: Monitor off antibiotics Has completed Zosyn therapy from 03/03 to 03/09. Also completed 4 days of Vancomycin Repeating sputum culture pending hemodynamically stable, afebrile Psyche: Bipolar/anxiety/depression Assessment/Plan: continue psyche home meds Endocrine: Diabetes mellitus - chronic Assessment/Plan: Novolog sliding scale Monitor BGMs while on steroids Cardiology: Proxy Atrial Fib Currently in Sinus rhythm - On lopressor PO, Cardizem FEN Fluid: tolerating PO Electrolytes: Monitor labs Nutrition: soft diet Prophylaxis DVT: SCD, heparin SQ GI: Protonix Disposition: Continues to require inpatient hospitalization. Discharge planning: [facility] vs. home. Discussed code status with patient and we discussed intubation and CPR. She confirmed that she is a Full Code. Visit type - Emergency Visit Emergency Visit: Yes ED Registration Date: 02/24/17 Care time: The patient presented to the Emergency Department on the above date and was hospitalized for further evaluation of their emergent condition. - New Patient This patient is new to me today: No - Critical Care Critical Care patient: No - Discharge Referral Referred to [facility] No
[2017-03-15] MEDS ORDERED: LOPERAMIDE HCL 2 MG CAPSULE PO ONE (08:55)
[2017-03-15] MEDS: ONDANSETRON 4 MG/2 ML VIAL IVPB PRN ×2 (09:00→15:48)
[2017-03-15] MEDS: LIDOCAINE 5% TOPICAL PATCH TP SCH (09:53)
[2017-03-15] MEDS: BUDESONIDE/FORMETEROL FUMARATE 160/4.5 mcg INHALER IH SCH ×2 (09:54→23:00)
[2017-03-15] MEDS: guaiFENesin 200 MG/10 ML 10 ML UNIT-DOSE CUPS PO PRN ×2 (09:54→17:39)
[2017-03-15] MEDS: PANTOPRAZOLE 40 MG TABLET (FP) PO SCH (09:55)
[2017-03-15] MEDS: MULTIVITAMINS (DAILY MVI) TABLET (FP) PO SCH (09:55)
[2017-03-15] MEDS: CHOLECALCIFEROL (VITAMIN D3) 1,000 UNIT TABLET (FP) PO SCH (09:55)
[2017-03-15] MEDS: guaiFENesin 600 MG TABLET.ER (FP) PO SCH ×2 (09:56→23:00)
[2017-03-15] MEDS: MOMETASONE FUROATE 220 MCG/IH INHALER IH SCH (09:57)
[2017-03-15] MEDS: DEXAMETHASONE SOD PHOSPHATE 10 MG/1 ML VIAL IVPUSH SCH ×2 (09:57→22:59)
[2017-03-15] MEDS: ROFLUMILAST 500 MCG TABLET PO SCH (09:58)
[2017-03-15] MEDS: ZINC OXIDE 20% TOPICAL OINTMENT 30 GM TUBE TP SCH ×2 (10:01→23:00)
[2017-03-15] MEDS: LIPASE/PROTEASE/AMYLASE 6,000 UNIT CAPSULE PO SCH ×3 (10:01→17:00)
--- NOTE | 2017-03-15 11:19 | PN ---
Progress Note, Physician History of Present Illness: pulmonary alert,feeling better,comfortable on nasal o2 - Current Medication List Current Medications: Active Medications Acetaminophen (Tylenol -) 1,000 mg PO Q6H PRN PRN Reason: PAIN Last Admin: 03/15/17 09:00 Dose: 1,000 mg Albuterol/Ipratropium (Duoneb -) 1 amp NEB Q4HWA [facility] Last Admin: 03/15/17 10:48 Dose: 1 amp Baclofen (Lioresal -) 20 mg PO TID [facility] Last Admin: 03/15/17 05:32 Dose: 20 mg Budesonide/Formoterol Fumarate (Symbicort 160/4.5mcg -) 2 puff IH BID [facility] Last Admin: 03/15/17 09:54 Dose: 2 puff Cholecalciferol (Vitamin D3 -) 2,000 unit PO DAILY [facility] Last Admin: 03/15/17 09:55 Dose: 2,000 unit Dexamethasone Sodium Phosphate (Decadron Injection -) 6 mg IVPUSH BID [facility] Last Admin: 03/15/17 09:57 Dose: 6 mg Diltiazem HCl (Cardizem -) 60 mg PO Q6HPO [facility] Last Admin: 03/15/17 05:32 Dose: 60 mg Diphenhydramine HCl (Benadryl Oral Solution -) 25 mg PO Q4H PRN PRN Reason: FOR ITCHING Last Admin: 03/14/17 23:20 Dose: 25 mg Docusate Sodium (Colace -) 100 mg PO BID PRN PRN Reason: CONSTIPATION Doxepin HCl (Sinequan -) 25 mg PO HS [facility] Last Admin: 03/14/17 22:57 Dose: 25 mg Eletriptan (Relpax -) 40 mg PO Q6H PRN PRN Reason: HEADACHE Gabapentin (Neurontin -) 300 mg PO TID [facility] Last Admin: 03/15/17 05:32 Dose: 300 mg Guaifenesin (Robitussin -) 10 ml PO Q6H PRN PRN Reason: COUGH Last Admin: 03/15/17 09:54 Dose: 10 ml Guaifenesin (Mucinex -) 600 mg PO BID [facility] Last Admin: 03/15/17 09:56 Dose: 600 mg Heparin Sodium (Porcine) (Heparin -) 5,000 unit SQ TID [facility] Last Admin: 03/15/17 05:32 Dose: 5,000 unit Hydromorphone HCl (Dilaudid Injection -) 0.5 mg IVPUSH Q4H PRN PRN Reason: Pain 4-6 Last Admin: 03/15/17 00:25 Dose: 0.5 mg Insulin Aspart (Novolog Vial Sliding Scale -) 1 vial SQ ACHS [facility] PRN Reason: Protocol Last Admin: 03/15/17 06:04 Dose: 2 units Insulin Detemir (Levemir Vial) 5 units SQ BIDI [facility] Last Admin: 03/15/17 06:05 Dose: 5 units Levothyroxine Sodium (Synthroid -) 25 mcg PO DAILY@0700 [facility] Last Admin: 03/15/17 06:04 Dose: 25 mcg Lidocaine (Lidoderm Patch -) 1 patch TP DAILY [facility] Last Admin: 03/15/17 09:53 Dose: 1 patch Metoprolol Tartrate (Lopressor -) 25 mg PO TID [facility] Last Admin: 03/15/17 05:32 Dose: 25 mg Mometasone Furoate (Asmanex 220mcg -) 2 puff IH DAILY [facility] Last Admin: 03/15/17 09:57 Dose: 2 puff Multi-Ingredient Ointment (Zinc Oxide) 1 applic TP BID [facility] Last Admin: 03/15/17 10:01 Dose: 1 applic Multivitamins/Minerals/Vitamin C (Tab-A-Vit -) 1 tab PO DAILY [facility] Last Admin: 03/15/17 09:55 Dose: 1 tab Non-Formulary Medication (Patient's Own Med) 1 each PO DAILY@0800 [facility] Last Admin: 03/15/17 09:57 Dose: 1 each Nystatin (Nystatin Oral Suspension -) 500,000 units PO Q6HPO [facility] Last Admin: 03/15/17 05:38 Dose: 500,000 units Ondansetron HCl (Zofran Injection) 4 mg IVPB Q6H PRN PRN Reason: NAUSEA Last Admin: 03/15/17 09:00 Dose: 4 mg Pancrelipase (Creon Dr 6,000 Units Capsule) 3 cap PO TIDCM [facility] Last Admin: 03/15/17 10:01 Dose: Not Given Pantoprazole Sodium (Protonix -) 40 mg PO DAILY [facility] Last Admin: 03/15/17 09:55 Dose: 40 mg Roflumilast (Daliresp -) 500 mcg PO DAILY EMMY Last Admin: 03/15/17 09:58 Dose: 500 mcg Sodium Chloride ([place] Nasal [place] -) 2 spray NS TID PRN PRN Reason: NASAL CONGESTION - Objective Vital Signs: Vital Signs Temperature 98.2 F 03/15/17 09:00 Pulse Rate 88 03/15/17 09:00 Respiratory Rate 16 03/15/17 09:00 Blood Pressure 104/64 03/15/17 09:00 O2 Sat by Pulse Oximetry (%) 98 03/15/17 00:06 Constitutional: Yes: Well Nourished, Calm Eyes: Yes: WNL HENT: Yes: WNL Neck: Yes: WNL Cardiovascular: Yes: Pulse Irregular, S1, S2 Respiratory: Yes: Wheezes (heriberto wheezes) Gastrointestinal: Yes: Normal Bowel Sounds, Soft Extremities: Yes: WNL Edema: Yes Labs: CBC, BMP 03/15/17 06:10 03/15/17 06:10 INR, PTT INR 1.04 (0.82-1.09) 03/03/17 05:30 Problem List - Problems (1) Acute exacerbation of COPD with asthma Code(s): J44.1 - CHRONIC OBSTRUCTIVE PULMONARY DISEASE W (ACUTE) EXACERBATION J45.901 - UNSPECIFIED ASTHMA WITH (ACUTE) EXACERBATION (2) Acute hypercapnic respiratory failure Code(s): J96.02 - ACUTE RESPIRATORY FAILURE WITH HYPERCAPNIA (3) Bronchitis Code(s): J40 - BRONCHITIS, NOT SPECIFIED ACUTE OR CHRONIC (4) Pneumonia due to Pseudomonas Code(s): J15.1 - PNEUMONIA DUE TO PSEUDOMONAS (5) Acute and chronic respiratory failure Code(s): J96.20 - ACUTE AND CHR RESP FAILURE, UNSP W HYPOXIA OR HYPERCAPNIA Qualifiers: Respiratory failure complication: hypoxia Qualified Code(s): J96.21 - Acute and chronic respiratory failure with hypoxia (6) Anxiety Code(s): F41.9 - ANXIETY DISORDER, UNSPECIFIED (7) Bipolar 2 disorder Code(s): F31.81 - BIPOLAR II DISORDER (8) Chronic back pain Code(s): M54.9 - DORSALGIA, UNSPECIFIED G89.29 - OTHER CHRONIC PAIN (9) Depression with anxiety Code(s): F41.8 - OTHER SPECIFIED ANXIETY DISORDERS (10) HTN (hypertension) Code(s): I10 - ESSENTIAL (PRIMARY) HYPERTENSION Qualifiers: (11) Hyperlipidemia Code(s): E78.5 - HYPERLIPIDEMIA, UNSPECIFIED (12) Obesity (BMI 30.0-34.9) Code(s): E66.9 - OBESITY, UNSPECIFIED Assessment/Plan ASSESSMENT AND PLAN: Acute on Chronic Hypoxic and Hypercapneic Respiratory Failure improving Acute COPD/Asthma Exacerbation r/o Pneumonia Atrial Fibrillation HTN Chronic Pain Syndrome/Opiate Dependent - steroid taper - inhaled bronchodilators standing and PRN - monitor H/H - titrate FiO2 to keep SpO2 >90% - bipap prn - rate control - OOB to chair - DVT/GI prophylaxis - sputum c+s DR RUFFIN
[2017-03-15] MEDS ORDERED: INSULIN (NOVOLOG) ASPART 100 UNITS/ML 10ML VIAL ONE ×2 (11:42→16:44)
[2017-03-15] MEDS ORDERED: ONDANSETRON 4 MG/2 ML VIAL IVPUSH ONE (11:45)
[2017-03-15] MEDS: DOXEPIN HCL 25 MG CAPSULE PO SCH (18:49)
[2017-03-15] MEDS: diphenhydrAMINE HCL 12.5 MG/5 ML UNIT-DOSE CUPS PO PRN (23:31)
[2017-03-16] MEDS: NYSTATIN 500,000 UNITS/5 ML SUSPENSION PO SCH ×4 (00:30→17:33)
[2017-03-16] MEDS: dilTIAZem HCL 60 MG TABLET (FP) PO SCH ×4 (00:30→17:33)
[2017-03-16] MEDS: HYDROmorphone HCL CARPU-JECT 1 MG/1 ML DISP.SYRIN IVPUSH PRN ×2 (03:50→07:58)
[2017-03-16] MEDS: ONDANSETRON 4 MG/2 ML VIAL IVPB PRN ×2 (05:15→10:08)
[2017-03-16] MEDS ORDERED: PT OWN MED DRAWER 7, Y5N ONE ×3 (05:46→21:16)
[2017-03-16] MEDS: GABAPENTIN 300 MG CAPSULE (FP) PO SCH ×3 (06:27→21:11)
[2017-03-16] MEDS: INSULIN DETEMIR 100 UNITS/ML MDV SQ SCH ×3 (06:27→17:32)
[2017-03-16] MEDS: BACLOFEN 10 MG TABLET (FP) PO SCH ×3 (06:27→21:11)
[2017-03-16] MEDS: HEPARIN NA (PORCINE) 5,000 UNITS/ML 1ML VIAL SQ SCH ×3 (06:27→21:10)
[2017-03-16] MEDS: METOPROLOL TARTRATE 25 MG TABLET (FP) PO SCH ×3 (06:27→21:11)
[2017-03-16] MEDS: LEVOTHYROXINE NA 25 MCG TABLET (FP) PO SCH (06:28)
[2017-03-16] MEDS: INSULIN SLIDING SCALE (NOVOLOG) 1 VIAL SQ SCH ×4 (06:28→22:11)
[2017-03-16] MEDS: ALBUTEROL SO4 2.5/IPRATROPIUM 0.5 INH SOL 3 ML VIAL.NEB. NEB SCH ×5 (06:30→22:00)
[2017-03-16] MEDS ORDERED: INSULIN (NOVOLOG) ASPART 100 UNITS/ML 10ML VIAL ONE (06:49)
[2017-03-16 07:42] LABS: BASOPHIL 0.1 % (0-2.0); MCH 26.4 pg (25.7-33.7); MCHC 32.1 g/dl (32.0-36.0); MEAN CELL VOLUME 82.4 fl (80-96); MEAN PLT VOLUME 8.4 fl (7.5-11.1); PLATELET COUNT 224 K/MM3 (134-434); RDW 18.4 % (11.6-15.6); WHITE BLOOD COUNT 5.8 K/mm3 (4.0-10.0)
[2017-03-16 08:13] LABS: ALBUMIN 2.9 g/dl (3.4-5.0); ALK PHOS 204 U/L (45-117); ANION GAP 8 (8-16); BILIRUBIN,TOTAL 0.7 mg/dL (0.2-1.0); CO2 32 mmol/L (21-32); COCKROFT - GAULT 0; CREATININE 0.4 mg/dL (0.55-1.02); GLUCOSE,RANDOM 178 mg/dL (74-106); SGOT/AST 6 U/L (15-37); SGPT/ALT 31 U/L (12-78)
[2017-03-16] MEDS: LIPASE/PROTEASE/AMYLASE 6,000 UNIT CAPSULE PO SCH ×4 (09:59→17:33)
[2017-03-16] MEDS: MOMETASONE FUROATE 220 MCG/IH INHALER IH SCH (10:00)
[2017-03-16] MEDS: MULTIVITAMINS (DAILY MVI) TABLET (FP) PO SCH (10:02)
[2017-03-16] MEDS: PANTOPRAZOLE 40 MG TABLET (FP) PO SCH (10:02)
[2017-03-16] MEDS: DEXAMETHASONE SOD PHOSPHATE 10 MG/1 ML VIAL IVPUSH SCH (10:02)
[2017-03-16] MEDS: guaiFENesin 600 MG TABLET.ER (FP) PO SCH ×2 (10:02→21:11)
[2017-03-16] MEDS: CHOLECALCIFEROL (VITAMIN D3) 1,000 UNIT TABLET (FP) PO SCH (10:03)
[2017-03-16] MEDS: BUDESONIDE/FORMETEROL FUMARATE 160/4.5 mcg INHALER IH SCH ×2 (10:03→21:11)
[2017-03-16] MEDS: LIDOCAINE 5% TOPICAL PATCH TP SCH ×2 (10:04→10:21)
[2017-03-16] MEDS: ZINC OXIDE 20% TOPICAL OINTMENT 30 GM TUBE TP SCH ×2 (12:06→21:13)
[2017-03-16] MEDS: ROFLUMILAST 500 MCG TABLET PO SCH (12:07)
--- NOTE | 2017-03-16 12:58 | PN ---
Progress Note, Physician History of Present Illness: pulmonary alert,feeling better,sob improving - Current Medication List Current Medications: Active Medications Albuterol/Ipratropium (Duoneb -) 1 amp NEB Q4HWA [facility] Last Admin: 03/16/17 10:05 Dose: 1 amp Baclofen (Lioresal -) 20 mg PO TID [facility] Last Admin: 03/16/17 06:27 Dose: 20 mg Budesonide/Formoterol Fumarate (Symbicort 160/4.5mcg -) 2 puff IH BID [facility] Last Admin: 03/16/17 10:03 Dose: 2 puff Cholecalciferol (Vitamin D3 -) 2,000 unit PO DAILY [facility] Last Admin: 03/16/17 10:03 Dose: 2,000 unit Dexamethasone (Decadron -) 3 mg PO BID [facility] Diltiazem HCl (Cardizem -) 60 mg PO Q6HPO [facility] Last Admin: 03/16/17 06:27 Dose: 60 mg Diphenhydramine HCl (Benadryl Oral Solution -) 25 mg PO Q4H PRN PRN Reason: FOR ITCHING Last Admin: 03/15/17 23:31 Dose: 25 mg Docusate Sodium (Colace -) 100 mg PO BID PRN PRN Reason: CONSTIPATION Doxepin HCl (Sinequan -) 25 mg PO DAILY@18 [facility] Last Admin: 03/15/17 18:49 Dose: 25 mg Eletriptan (Relpax -) 40 mg PO Q6H PRN PRN Reason: HEADACHE Gabapentin (Neurontin -) 300 mg PO TID [facility] Last Admin: 03/16/17 06:27 Dose: 300 mg Guaifenesin (Robitussin -) 10 ml PO Q6H PRN PRN Reason: COUGH Last Admin: 03/15/17 17:39 Dose: 10 ml Guaifenesin (Mucinex -) 600 mg PO BID [facility] Last Admin: 03/16/17 10:02 Dose: 600 mg Heparin Sodium (Porcine) (Heparin -) 5,000 unit SQ TID [facility] Last Admin: 03/16/17 06:27 Dose: 5,000 unit Insulin Aspart (Novolog Vial Sliding Scale -) 1 vial SQ [facility] PRN Reason: Protocol Last Admin: 03/16/17 12:06 Dose: 4 units Insulin Detemir (Levemir Vial) 5 units SQ BIDI [facility] Last Admin: 03/16/17 06:27 Dose: 5 units Levothyroxine Sodium (Synthroid -) 25 mcg PO DAILY@0700 [facility] Last Admin: 03/16/17 06:28 Dose: 25 mcg Lidocaine (Lidoderm Patch -) 1 patch TP DAILY [facility] Last Admin: 03/16/17 10:21 Dose: Not Given Metoprolol Tartrate (Lopressor -) 25 mg PO TID [facility] Last Admin: 03/16/17 06:27 Dose: 25 mg Mometasone Furoate (Asmanex 220mcg -) 2 puff IH DAILY [facility] Last Admin: 03/16/17 10:00 Dose: 2 puff Multi-Ingredient Ointment (Zinc Oxide) 1 applic TP BID [facility] Last Admin: 03/16/17 12:06 Dose: 1 applic Multivitamins/Minerals/Vitamin C (Tab-A-Vit -) 1 tab PO DAILY [facility] Last Admin: 03/16/17 10:02 Dose: 1 tab Non-Formulary Medication (Patient's Own Med) 1 each PO DAILY@0800 [facility] Last Admin: 03/16/17 09:59 Dose: 1 each Nystatin (Nystatin Oral Suspension -) 500,000 units PO Q6HPO [facility] Last Admin: 03/16/17 06:28 Dose: 500,000 units Pancrelipase (Creon Dr 6,000 Units Capsule) 3 cap PO TIDCM [facility] Last Admin: 03/16/17 10:20 Dose: Not Given Pantoprazole Sodium (Protonix -) 40 mg PO DAILY [facility] Last Admin: 03/16/17 10:02 Dose: 40 mg Roflumilast (Daliresp -) 500 mcg PO DAILY [facility] Last Admin: 03/16/17 12:07 Dose: 500 mcg Sodium Chloride ([place] Nasal [place] -) 2 spray NS TID PRN PRN Reason: NASAL CONGESTION - Objective Vital Signs: Vital Signs Temperature 97.5 F L 03/16/17 09:56 Pulse Rate 80 03/16/17 10:05 Respiratory Rate 19 03/16/17 09:56 Blood Pressure 123/72 03/16/17 09:56 O2 Sat by Pulse Oximetry (%) 99 03/16/17 10:05 Constitutional: Yes: Well Nourished, Calm Eyes: Yes: WNL HENT: Yes: WNL Neck: Yes: WNL Cardiovascular: Yes: Pulse Irregular, S1, S2 Respiratory: Yes: Wheezes (few wheezes heriberto) Gastrointestinal: Yes: Normal Bowel Sounds, Soft Extremities: Yes: WNL Edema: No Labs: CBC, BMP 03/16/17 07:00 03/16/17 07:00 INR, PTT INR 1.04 (0.82-1.09) 03/03/17 05:30 Problem List - Problems (1) Acute exacerbation of COPD with asthma Code(s): J44.1 - CHRONIC OBSTRUCTIVE PULMONARY DISEASE W (ACUTE) EXACERBATION J45.901 - UNSPECIFIED ASTHMA WITH (ACUTE) EXACERBATION (2) Acute hypercapnic respiratory failure Code(s): J96.02 - ACUTE RESPIRATORY FAILURE WITH HYPERCAPNIA (3) Bronchitis Code(s): J40 - BRONCHITIS, NOT SPECIFIED ACUTE OR CHRONIC (4) Pneumonia due to Pseudomonas Code(s): J15.1 - PNEUMONIA DUE TO PSEUDOMONAS (5) Acute and chronic respiratory failure Code(s): J96.20 - ACUTE AND CHR RESP FAILURE, UNSP W HYPOXIA OR HYPERCAPNIA Qualifiers: Respiratory failure complication: hypoxia Qualified Code(s): J96.21 - Acute and chronic respiratory failure with hypoxia (6) Anxiety Code(s): F41.9 - ANXIETY DISORDER, UNSPECIFIED (7) Bipolar 2 disorder Code(s): F31.81 - BIPOLAR II DISORDER (8) Chronic back pain Code(s): M54.9 - DORSALGIA, UNSPECIFIED G89.29 - OTHER CHRONIC PAIN (9) Depression with anxiety Code(s): F41.8 - OTHER SPECIFIED ANXIETY DISORDERS (10) HTN (hypertension) Code(s): I10 - ESSENTIAL (PRIMARY) HYPERTENSION Qualifiers: (11) Hyperlipidemia Code(s): E78.5 - HYPERLIPIDEMIA, UNSPECIFIED (12) Obesity (BMI 30.0-34.9) Code(s): E66.9 - OBESITY, UNSPECIFIED Assessment/Plan ASSESSMENT AND PLAN: Acute on Chronic Hypoxic and Hypercapneic Respiratory Failure improving Acute COPD/Asthma Exacerbation r/o Pneumonia Atrial Fibrillation HTN Chronic Pain Syndrome/Opiate Dependent - continue steroid taper - inhaled bronchodilators standing and PRN - monitor H/H - titrate FiO2 to keep SpO2 >90% - bipap prn - rate control - OOB to chair - DVT/GI prophylaxis DR RUFFIN
--- NOTE | 2017-03-16 14:29 | DS ---
Physical Exam: SUBJECTIVE: Patient seen and examined OBJECTIVE: Vital Signs Period Temp Pulse Resp BP Sys/Dan Pulse Ox Last 24 Hr 97.5 F-97.8 F 65-88 18-19 119-138/72-76 97-99 PHYSICAL EXAM GENERAL: The patient is awake, alert, and fully oriented, in no acute distress. HEAD: Normal with no signs of trauma. EYES: PERRL, extraocular movements intact, sclera anicteric, conjunctiva clear. LUNGS: Scattered wheezes. HEART: Regular rate and rhythm, S1, S2 without murmur, rub or gallop. ABDOMEN: Soft, nontender, nondistended, normoactive bowel sounds, no guarding, no rebound, no hepatosplenomegaly, no masses. EXTREMITIES: 2+ pulses, warm, well-perfused, no edema. NEUROLOGICAL: Cranial nerves II through XII grossly intact. Normal speech, gait not observed. Laboratory Results - last 24 hr 03/15/17 03/15/17 03/16/17 17:06 22:29 06:21 WBC RBC Hgb Hct MCV MCHC RDW Plt Count MPV Neutrophils % Lymphocytes % Monocytes % Eosinophils % Basophils % Sodium Potassium Chloride Carbon Dioxide Anion Gap BUN Creatinine Creat Clearance w eGFR POC Glucometer 223 143 182 Random Glucose Calcium Total Bilirubin AST ALT Alkaline Phosphatase Total Protein Albumin 03/16/17 03/16/17 03/16/17 07:00 07:00 12:04 WBC 5.8 RBC 2.85 L Hgb 7.5 L Hct 23.5 L MCV 82.4 MCHC 32.1 RDW 18.4 H Plt Count 224 MPV 8.4 Neutrophils % 92.0 H Lymphocytes % 5.5 L D Monocytes % 2.4 L D Eosinophils % 0.0 Basophils % 0.1 Sodium 142 Potassium 4.3 Chloride 102 Carbon Dioxide 32 Anion Gap 8 BUN 27 H D Creatinine 0.4 L Creat Clearance w eGFR > 60 POC Glucometer 215 Random Glucose 178 H Calcium 9.0 Total Bilirubin 0.7 AST 6 L ALT 31 Alkaline Phosphatase 204 H Total Protein 6.0 L Albumin 2.9 L HOSPITAL COURSE: Date of Admission:02/24/17 Date of Discharge: 03/16/17 51 year-old female with a PMH of HTN, paroxysmal afib, NIDDM, asthma/COPD O2 dependent, previous tracheostomy (closed), uterine cancer, anxiety, depression, and bipolar disorder. Admitted with nausea, diarrhea, productive cough, and left sided body pain. Hospital course complicated by hypercarbic respiratory failure, intubated 03/02, extubated 03/04, reintubated 03/05, extubated 03/09. Acute on chroinc hypoxic and hypercapnic respiratory failure secondary to Pseudomonas pneumonia and COPD exacerbation --was twice intubated and extubated --treated with IV steroids, transitioned to PO and being discharged with slow taper --inhaled bronchodilators standing and PRN --BIPAP PRN Pseudomonas pneumonia --afebrile, leukocytosis resolved --completed Zosyn x 7 days, Vanco x 4 days Paroxysmal afib --continue metoprolol and cardizem for rate control --[id number] score 3 ---not on anticoagulation secondary to a previous GI bleed Hypertension --continued metoprolol, cardizem Transaminitis --downtrending IDDM --Levemir 5mg BID --Novolog sliding scale coverage Hypothroidism --continued levothyroxine Anxiety, depression, chronic pain Minutes to complete discharge: 35 Discharge Summary Reason For Visit: DIARRHEA, ACUTE EXACERBATION COPD Current Active Problems Acute exacerbation of COPD with asthma (Acute) Acute hypercapnic respiratory failure (Acute) Bronchitis (Acute) DVT prophylaxis (Acute) Diarrhea in adult patient (Acute) Pneumonia due to Pseudomonas (Acute) Acute and chronic respiratory failure (Chronic) Anxiety (Chronic) Bipolar 2 disorder (Chronic) COPD (chronic obstructive pulmonary disease) case management patient (Chronic) Chronic back pain (Chronic) Chronic respiratory failure with hypoxia (Chronic) Depression with anxiety (Chronic) Drug abuse and dependence (Chronic) Gallstones (Chronic) Gastritis (Chronic) HTN (hypertension) (Chronic) Hyperlipidemia (Chronic) Obesity (BMI 30.0-34.9) (Chronic) Opioid dependence (Chronic) Paroxysmal atrial fibrillation (Chronic) Condition: Improved - Instructions Referrals: Adiel Thomas MD [Staff Physician] - Chaitanya Santiago MD [Staff Physician] - Rafa Lund MD [Staff Physician] - Manolo Jaquez [Primary Care Provider] - Juan Esparza MD [Staff Physician] - Disposition: [facility] - Home Medications Comprehensive Discharge Medication List: Ambulatory Orders Levothyroxine [Synthroid -] 25 mcg PO DAILY@0700 tablet 06/05/16 Albuterol 2.5/Ipratropium 0.5 [Duoneb -] 1 amp NEB Q4HPO amp 09/17/16 Alprazolam [Xanax] 0.25 mg PO BID tablet MDD 2 09/17/16 Diltiazem [Cardizem -] 60 mg PO Q6HPO tablet 09/17/16 Magnesium Oxide [Mag-Ox -] 400 mg PO BID tablet 09/17/16 Baclofen [Lioresal -] 20 mg PO TID 10/01/16 Budesonide/Formeterol Fumarate [SYMBICORT 160/4.5mcg -] 2 inh PO BID 11/01/16 Diphenhydramine [Benadryl 12.5 MG/5 ML Oral Solution -] 25 mg PO Q4H PRN Eletriptan Hydrobromide [Relpax -] 40 mg PO PRN 11/01/16 Gabapentin [Neurontin -] 300 mg PO TID 11/01/16 Metoprolol Tartrate [Lopressor -] 25 mg PO TID 11/01/16 Omeprazole 40 mg PO BID 11/01/16 Roflumilast [Daliresp] 500 mcg PO DAILY 11/01/16 Zolpidem Tartrate [Ambien] 10 mg PO HS PRN MDD 1 11/01/16 Lipase/Protease/Amylase [Eamon Turner 6,000 Units Capsule] 3 cap PO TIDCM capsule. 11/07/16 Insulin Sliding Scale [Novolog Vial Sliding Scale -] 0 units SQ ACHS PRN Doxepin HCl [Sinequan -] 25 mg PO HS capsule 11/20/16 Lactobacillus Acidophilus [Bacid -] 1 tab PO BID tab 11/20/16 Metoclopramide HCl [Reglan -] 10 mg PO TIDAC tablet 11/20/16 Multivitamins [Multivit ([facility] Formulary)] 1 tab PO DAILY tab 11/20/16 Ondansetron [Zofran -] 4 mg PO Q4H PRN #0 tablet 11/20/16 Zinc Oxide 1 applic TP BID tube 11/20/16 Insulin (Levemir) [Levemir Vial] 5 unit SQ DAILY #1 vial 11/21/16 Cholecalciferol (Vitamin D3) [Vitamin D3 -] 2,000 unit PO DAILY #30 tab Albuterol Sulfate Inhaler - [Ventolin HFA Inhaler -] 2 puff IH Q4H PRN #0 inhaler 11/29/16 Prednisone 10 mg PO DAILY #15 tablet 11/29/16 Sucralfate [Carafate -] 1 gm PO QID tablet 12/16/16 Hydromorphone [Dilaudid -] 4 mg PO Q4H PRN #0 tablet MDD 24mg 12/17/16 Diltiazem [Cardizem -] 60 mg PO Q6HPO tablet 03/16/17 Hydromorphone [Dilaudid -] 4 mg PO Q6H PRN #20 tablet MDD 4 03/16/17 Mometasone Furoate [Asmanex 220Mcg -] 2 puff IH DAILY inhaler 03/16/17 Prednisone 10 mg PO ASDIR #30 tablet 03/16/17 This patient is new to me today: No Emergency Visit: Yes ED Registration Date: 02/24/17 Care time: The patient presented to the Emergency Department on the above date and was hospitalized for further evaluation of their emergent condition. Critical Care patient: No - Discharge Referral Referred to [facility] No
[2017-03-16] MEDS ORDERED: ONDANSETRON *ODT* 4 MG TABLET SL PRN (15:40)
[2017-03-16] MEDS: DOXEPIN HCL 25 MG CAPSULE PO SCH (19:28)
[2017-03-16] MEDS: DEXAMETHASONE 1.5 MG TABLET PO SCH (21:10)
[2017-03-16] MEDS: diphenhydrAMINE HCL 12.5 MG/5 ML UNIT-DOSE CUPS PO PRN (21:17)
[2017-03-17] MEDS: NYSTATIN 500,000 UNITS/5 ML SUSPENSION PO SCH ×3 (00:12→11:58)
[2017-03-17] MEDS: dilTIAZem HCL 60 MG TABLET (FP) PO SCH ×3 (00:13→11:58)
[2017-03-17] MEDS: ALBUTEROL SO4 2.5/IPRATROPIUM 0.5 INH SOL 3 ML VIAL.NEB. NEB SCH ×3 (04:50→14:05)
[2017-03-17] MEDS ORDERED: PT OWN MED DRAWER 7, Y5N ONE (06:17)
[2017-03-17] MEDS: GABAPENTIN 300 MG CAPSULE (FP) PO SCH ×2 (06:27→14:58)
[2017-03-17] MEDS: METOPROLOL TARTRATE 25 MG TABLET (FP) PO SCH ×2 (06:27→14:58)
[2017-03-17] MEDS: HEPARIN NA (PORCINE) 5,000 UNITS/ML 1ML VIAL SQ SCH ×2 (06:27→14:58)
[2017-03-17] MEDS: BACLOFEN 10 MG TABLET (FP) PO SCH ×2 (06:27→14:58)
[2017-03-17] MEDS: INSULIN SLIDING SCALE (NOVOLOG) 1 VIAL SQ SCH ×2 (06:28→12:02)
[2017-03-17] MEDS: INSULIN DETEMIR 100 UNITS/ML MDV SQ SCH (06:28)
[2017-03-17] MEDS: LEVOTHYROXINE NA 25 MCG TABLET (FP) PO SCH (06:29)
[2017-03-17] MEDS: MULTIVITAMINS (DAILY MVI) TABLET (FP) PO SCH (09:54)
[2017-03-17] MEDS: PANTOPRAZOLE 40 MG TABLET (FP) PO SCH (09:54)
[2017-03-17] MEDS: guaiFENesin 600 MG TABLET.ER (FP) PO SCH (09:54)
[2017-03-17] MEDS: CHOLECALCIFEROL (VITAMIN D3) 1,000 UNIT TABLET (FP) PO SCH (09:54)
[2017-03-17] MEDS: LIDOCAINE 5% TOPICAL PATCH TP SCH (09:55)
[2017-03-17] MEDS: DEXAMETHASONE 1.5 MG TABLET PO SCH (09:55)
[2017-03-17] MEDS: ROFLUMILAST 500 MCG TABLET PO SCH (09:55)
[2017-03-17] MEDS: BUDESONIDE/FORMETEROL FUMARATE 160/4.5 mcg INHALER IH SCH (09:56)
[2017-03-17] MEDS: LIPASE/PROTEASE/AMYLASE 6,000 UNIT CAPSULE PO SCH ×2 (09:58→11:58)
[2017-03-17] MEDS: MOMETASONE FUROATE 220 MCG/IH INHALER IH SCH (10:02)
[2017-03-17] MEDS: ZINC OXIDE 20% TOPICAL OINTMENT 30 GM TUBE TP SCH (10:03)
[2017-03-17] MEDS ORDERED: ONDANSETRON 4 MG TABLET PO PRN (13:51)
[2017-03-17 15:55] VITALS: BP 115/60; PULSE 89; TEMP 98.6
== END 2017-03-17 17:05 | DRG 207 ==
LOC: JER 23:37 → JERBED 02-23 05:24 → J6S 02-23 15:35 → OBSVTOIN 02-24 18:41 → JICU 03-02 19:41 → J4S 03-12 19:04
PROVIDERS: ADMIT Internal Medicine; ATTEND Nurse Practitioner Acute Care
PROC: 3E0F7GC Introduction of Other Therapeutic Substance into Respiratory Tract, Via Natural or Artificial Opening (ICD-10-PCS; 2017-02-23)
PROC: 5A12012 Performance of Cardiac Output, Single, Manual (ICD-10-PCS; principal; 2017-03-02)
PROC: 5A1945Z Respiratory Ventilation, 24-96 Consecutive Hours (ICD-10-PCS; 2017-03-02)
PROC: 0BH17EZ Insertion of Endotracheal Airway into Trachea, Via Natural or Artificial Opening (ICD-10-PCS; 2017-03-02)
PROC: 06HM33Z Insertion of Infusion Device into Right Femoral Vein, Percutaneous Approach (ICD-10-PCS; 2017-03-03)
PROC: B54BZZA Ultrasonography of Right Lower Extremity Veins, Guidance (ICD-10-PCS; 2017-03-03)
PROC: 5A1955Z Respiratory Ventilation, Greater than 96 Consecutive Hours (ICD-10-PCS; 2017-03-05)
PROC: 0BH17EZ Insertion of Endotracheal Airway into Trachea, Via Natural or Artificial Opening (ICD-10-PCS; 2017-03-05)
PROC: 05HM33Z Insertion of Infusion Device into Right Internal Jugular Vein, Percutaneous Approach (ICD-10-PCS; 2017-03-05)
PROC: B543ZZA Ultrasonography of Right Jugular Veins, Guidance (ICD-10-PCS; 2017-03-05)
DX: J44.1 Chronic obstructive pulmonary disease with (acute) exacerbation (principal); R09.2 Respiratory arrest; J96.22 Acute and chronic respiratory failure with hypercapnia; J15.1 Pneumonia due to Pseudomonas; F31.81 Bipolar II disorder; F19.20 Other psychoactive substance dependence, uncomplicated; J45.901 Unspecified asthma with (acute) exacerbation; K52.1 Toxic gastroenteritis and colitis; E24.2 Drug-induced Cushing's syndrome; Z87.891 Personal history of nicotine dependence; M54.9 Dorsalgia, unspecified; F41.9 Anxiety disorder, unspecified; I48.0 Paroxysmal atrial fibrillation; I10 Essential (primary) hypertension; E03.9 Hypothyroidism, unspecified; Z85.42 Personal history of malignant neoplasm of other parts of uterus; E11.42 Type 2 diabetes mellitus with diabetic polyneuropathy; Z79.4 Long term (current) use of insulin; K21.9 Gastro-esophageal reflux disease without esophagitis; A08.4 Viral intestinal infection, unspecified; Z99.81 Dependence on supplemental oxygen; T36.8X5A Adverse effect of other systemic antibiotics, initial encounter; D72.829 Elevated white blood cell count, unspecified; Y95 Nosocomial condition; E87.6 Hypokalemia; G89.29 Other chronic pain; R74.0 Nonspecific elevation of levels of transaminase and lactic acid dehydrogenase [LDH]; D64.9 Anemia, unspecified
CPT/HCPCS: 36415; 36600; 71010-TC; 73523-TC; 74000-TC; 80048; 80053; 82150; 82550; 82803; 82947; 83605; 83615; 83690; 83735; 84100; 84132; 84484; 85025; 85610; 87040; 87070; 87077; 87186; 87205; 87254; 87324; 87449; 87804; 93005; 93010; 94002; 94640; 94660; 97116-GP; 97162-PG; 99284-25; G0378; J0475; J1644

== ENCOUNTER 2017-03-20 23:19 | Inpatient (IN) | payer OTHER ==
[2017-03-20] MEDS ORDERED: FUROSEMIDE 40 MG/4 ML INJECTABLE VIAL IVPUSH ONE (23:23)
--- NOTE | 2017-03-20 23:24 | PDOC ---
History of Present Illness - General History Source: Detention Records Exam Limitations: Intubated - History of Present Illness Initial Comments: 03/21/17 00:01 The patient is a 51-year-old female, resident of [facility], with a significant past medical history of diabetes, COPD, asthma, anxiety, who was found in respiratory distress tonight. As per NH, patient was found unresponsive. When EMS got to the scene patient was said to have a pulse. They did note that she was experiencing guppy breathing while on her way to the hospital. HPI is limited because patient is intubated. <Aliya Stein - Last Filed: 03/21/17 05:33> <Kathi Spencer - Last Filed: 03/21/17 22:27> - General Chief Complaint: Respiratory Distress Stated Complaint: UNRESPONSIVE Time Seen by Provider: 03/20/17 23:22 Past History <Aliya Stein - Last Filed: 03/21/17 05:33> - Past Medical History Anemia: Yes Asthma: Yes (COPD) Cancer: Yes (UTERINE) Cardiac Disorders: Yes (A-fib) CVA: No COPD: Yes CHF: No Dementia: No Diabetes: Yes GI Disorders: Yes (colitis, SB resection,) Disorders: Yes (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) HTN: Yes Hypercholesterolemia: Yes Liver Disease: No Suicide Attempt (Hx): No Seizures: Yes (5 yrs ago had a seizure ( zofran and reglan given together as per patient) Thyroid Disease: No - Surgical History Abdominal Surgery: Yes (BOWEL RESECTION) Appendectomy: Yes (removed 1998) Cardiac Surgery: No Cholecystectomy: No Lung Surgery: No Neurologic Surgery: No Orthopedic Surgery: Yes (Back Sx T7,6) - Immunization History Td Vaccination: Yes TDAP Vaccination: Yes Immunization Up to Date: Yes - Psycho/Social/Smoking Cessation Hx Anxiety: No Suicidal Ideation: No Smoking Status: No Smoking History: Former smoker Have you smoked in the past 12 months: No Number of Cigarettes Smoked Daily: 3 If you are a former smoker, when did you quit?: 10/11/14 'Breaking Loose' booklet given: 03/12/15 Hx Alcohol Use: No Drug/Substance Use Hx: No Substance Use Type: None Hx Substance Use Treatment: No <Kathi Spencer - Last Filed: 03/21/17 22:27> - Past Medical History Allergies/Adverse Reactions: Allergies Allergy/AdvReac Type Severity Reaction Status Date / Time oxycodone [Oxycodone] Allergy Severe Nausea Verified 03/20/17 23:21 oxycodone HCl [From Percocet] Allergy Severe Nausea Verified 03/20/17 23:21 aspirin Allergy Mild Verified 03/20/17 23:21 blueberry [Blueberry] Allergy Mild Swelling Verified 03/20/17 23:21 fentanyl Allergy Verified 03/20/17 23:21 Home Medications: Ambulatory Orders Levothyroxine [Synthroid -] 25 mcg PO DAILY@0700 tablet 06/05/16 Albuterol 2.5/Ipratropium 0.5 [Duoneb -] 1 amp NEB Q4HPO amp 09/17/16 Alprazolam [Xanax] 0.25 mg PO BID tablet MDD 2 09/17/16 Diltiazem [Cardizem -] 60 mg PO Q6HPO tablet 09/17/16 Magnesium Oxide [Mag-Ox -] 400 mg PO BID tablet 09/17/16 Baclofen [Lioresal -] 20 mg PO TID 10/01/16 Budesonide/Formeterol Fumarate [SYMBICORT 160/4.5mcg -] 2 inh PO BID 11/01/16 Diphenhydramine [Benadryl 12.5 MG/5 ML Oral Solution -] 25 mg PO Q4H PRN Eletriptan Hydrobromide [Relpax -] 40 mg PO PRN PRN 11/01/16 Gabapentin [Neurontin -] 300 mg PO TID 11/01/16 Metoprolol Tartrate [Lopressor -] 25 mg PO TID 11/01/16 Omeprazole 40 mg PO BID 11/01/16 Insulin Sliding Scale [Novolog Vial Sliding Scale -] 0 units SQ ACHS PRN Doxepin HCl [Sinequan -] 25 mg PO HS capsule 11/20/16 Lactobacillus Acidophilus [Bacid -] 1 tab PO BID tab 11/20/16 Metoclopramide HCl [Reglan -] 10 mg PO TIDAC tablet 11/20/16 Multivitamins [Multivit ([facility] Formulary)] 1 tab PO DAILY tab 12/29/16 Ondansetron [Zofran -] 4 mg PO Q4H PRN #0 tablet 11/20/16 Zinc Oxide 1 applic TP BID tube 11/20/16 Insulin (Levemir) [Levemir Vial] 5 unit SQ DAILY #1 vial 11/21/16 Cholecalciferol (Vitamin D3) [Vitamin D3 -] 2,000 unit PO DAILY #30 tab Albuterol Sulfate Inhaler - [Ventolin HFA Inhaler -] 2 puff IH Q4H PRN #0 inhaler 11/29/16 Prednisone 10 mg PO DAILY #15 tablet 11/29/16 Sucralfate [Carafate -] 1 gm PO QID tablet 12/16/16 Hydromorphone [Dilaudid -] 4 mg PO Q4H PRN #0 tablet MDD 24mg 12/17/16 Diltiazem [Cardizem -] 60 mg PO Q6HPO tablet 03/16/17 Mometasone Furoate [Asmanex 220Mcg -] 2 puff IH DAILY inhaler 03/16/17 Omeprazole Magnesium [Prilosec] 20 mg PO BID 03/21/17 Review of Systems - Review of Systems Able to Perform ROS?: No Comments:: 03/21/17 00:20 ROS unable to obtain because pt is intubated. <Aliya Stein - Last Filed: 03/21/17 05:33> *Physical Exam - Vital Signs Last Vital Signs Temp Pulse Resp BP Pulse Ox 99.5 F 106 H 25 H 144/100 99 03/20/17 23:21 03/20/17 23:21 03/20/17 23:48 03/20/17 23:21 03/20/17 23:21 - Physical Exam Comments: 03/21/17 00:21 GENERAL: (+)Patient intubated HEENT: Normocephalic, atraumatic. PERRLA, EOMI. No conjunctival pallor. Sclera are non- icteric. Moist mucous membranes. Oropharynx is clear. NECK: Supple. Full ROM. No JVD. Carotid pulses 2+ and symmetric, without bruits. No thyromegaly. No lymphadenopathy. CARDIOVASCULAR: Regular rate and rhythm. No murmurs, rubs, or gallops. Distal pulses are 2+ and symmetric. PULMONARY: (+)coarse breath sounds bilaterally (unclear if rhonchi or rales). ABDOMINAL: Soft. Non-tender. Non-distended. No rebound or guarding. No organomegaly. Normoactive bowel sounds. MUSCULOSKELETAL Normal range of motion at all joints. No bony deformities or tenderness. No CVA tenderness. EXTREMITIES: No cyanosis. No clubbing. No edema. No calf tenderness. SKIN: Warm and dry. Normal capillary refill. No jaundice. (+)Hematomas on abdomen and left upper extremity from where insulin was injected. Old surgical scars. NEUROLOGICAL: Alert, awake inspite of tube in her throat. <Aliya Stein - Last Filed: 03/21/17 05:33> ED Treatment Course - LABORATORY CBC & Chemistry Diagram: 03/20/17 23:50 03/20/17 23:50 - Medications Given in the ED: ED Medications Discontinued Medications Generic Name Dose Route Start Last Admin Trade Name Freq PRN Reason Stop Dose Admin Furosemide 40 mg 03/20/17 23:23 03/20/17 23:36 Lasix Injection - IVPUSH 03/20/17 23:24 40 mg ONCE ONE Administration Morphine Sulfate 2 mg 03/20/17 23:38 03/20/17 23:51 Morphine Injection - IVPUSH 03/20/17 23:39 2 mg ONCE ONE Administration <Aliya Stein - Last Filed: 03/21/17 05:33> - LABORATORY CBC & Chemistry Diagram: 03/21/17 08:40 03/21/17 08:40 <Kathi Spencer - Last Filed: 03/21/17 22:27> Medical Decision Making - Medical Decision Making 03/21/17 05:33 Dr. Goel was paged and notified via phone service. <Aliya Stein - Last Filed: 03/21/17 05:33> - Medical Decision Making 03/21/17 03:10 Patient Name: Bonita Hull THIS IS A PRELIMINARYREPORT FROM [facility] EXAM: CT angiogram of the chest IMAGES: 814 INDICATION: Left lung white out. Respiratory failure. Rule out PE. DATE OF SERVICE: 2017-03-21 02:20: 06.0 COMPARISON: none FINDINGS: There is no PE or dissection. Heart size is normal. The right mainstem bronchus has been intubated and the tube must be pulled back approximately 4 cm. There is associated complete collapse of the left lung with mediastinal shift to the left. There are multifocal lobular infiltrates in the right lung, suggest pneumonia. There is no pleural or pericardial effusion. No fractures identified. The upper abdominal structures are normal. Is prominent streak artifact from multilevel spinal fixation hardware. Findings discussed with Dr. Spencer at 3 AM. IMPRESSION: Intubation of the right mainstem bronchus with complete collapse of the left lung. Endotracheal tube should be pulled back approximately 4 cm Multifocal right lung lobular pneumonia. THIS DOCUMENT HAS BEEN ELECTRONICALLY SIGNED 03/21/17 22:21 Pt comes from the [place] with respiratory arrest. SHe was intubated by EMS. SHe is awake in the ER and tolerating the ETT> She is however requesting pain meds for her back. I am teating her with morphine. Pt was initially treated with lasix by me as she presented as an acute pulmonary edema case. Pt is afebrile. however, her cxr demonstrated a complete white out of the left lung. it is difficult to see the ETT on cxr, as she has hardware in her spine that superimposes the ETT image. Pt was sent to CT scan, as she had persistent hypoxia despite ETT and vent set at 100%FiO2. I wanted to do CTA to r/o pulmonary embolism as she may have a VQ mismatch due to this. Pt's CT scan is as above. Pt's ETT was adjusted and FIO2 was adjusted to 40%, and she maintained 100% [id number]. Pt will be treated for pneumonia, Admitting doctors can evaluate her for nilateral pneumonia. Today we only were able to image the right lung,as the left lung was collapsed. Pt admitted to hospitalist, even though she is a patient of Dr. Jaquez'michael at the [facility]. Apparently Dr. Goel doesn't admit Dr. Jaquez's [place] patients. Hospitalist is aware of the case. Also [facility] accepted the patient as she is vented, and requires ICU care. Pt is stable. <Kathi Spencer - Last Filed: 03/21/17 22:27> *DC/Admit/Observation/Transfer - Attestations Scribe Attestion: 03/21/17 00:21 Documentation prepared by Aliya Stein, acting as medical terminologist for Kathi Spencer MD. <Aliya Stein - Last Filed: 03/21/17 05:33> - Discharge Dispostion Admit: Yes <Kathi Spencer - Last Filed: 03/21/17 22:27> Diagnosis at time of Disposition: Anemia, Respiratory failure, Pneumonia involving right lung, Collapse of left lung Pneumonia Qualifiers: Pneumonia type: due to unspecified organism Laterality: right Lung location: upper lobe of lung Qualified Code(s): J18.1 - Lobar pneumonia, unspecified organism - Referrals
[2017-03-20] MEDS ORDERED: FUROSEMIDE 40 MG/4 ML INJECTABLE VIAL ONE (23:35)
[2017-03-20] MEDS ORDERED: morphine CARPU-JECT 2 MG/1 ML DISP.SYRIN ONE (23:38)
[2017-03-20] MEDS ORDERED: morphine CARPU-JECT 2 MG/1 ML DISP.SYRIN IVPUSH ONE (23:38)
[2017-03-21] LABS: BASOPHIL 0.2 % (0-2.0); MCH 26.1 pg (25.7-33.7); MCHC 31.7 g/dl (32.0-36.0); MEAN CELL VOLUME 82.4 fl (80-96); MEAN PLT VOLUME 8.4 fl (7.5-11.1); NEUTROPHILS 93.4 % (42.8-82.8); PLATELET COUNT 310 K/MM3 (134-434); RDW 18.1 % (11.6-15.6); WHITE BLOOD COUNT 8.4 K/mm3 (4.0-10.0)
[2017-03-21] MEDS ORDERED: PIPERACILLIN/TAZOB 3.375 GM 3.375 GM in DEXTROSE 5%-WATER - 50 ML IVPB ONE (00:16)
[2017-03-21 00:29] LABS: ALBUMIN 2.8 g/dl (3.4-5.0); ANION GAP 14 (8-16); BILIRUBIN,TOTAL 0.5 mg/dL (0.2-1.0); CALCIUM 7.6 mg/dL (8.5-10.1); CO2 27 mmol/L (21-32); CREATININE 0.6 mg/dL (0.55-1.02); GLUCOSE,RANDOM 211 mg/dL (74-106); SGOT/AST 91 U/L (15-37); SGPT/ALT 124 U/L (12-78); TOT PROT 5.9 g/dl (6.4-8.2)
[2017-03-21 00:31] LABS: ARTERIAL BLD GAS O2 SATURATION 65.8 % (90-98.9); ARTERIAL BLOOD GAS BASE EXCESS 6.4 meq/l (-2-2); ARTERIAL BLOOD GAS HCO3 31.4 meq/L (22-26); ARTERIAL BLOOD GAS PO2 35.4 mmHg (80-100); ARTERIAL BLOOD GAS pH 7.41 (7.35-7.45)
[2017-03-21 00:31] LABS: ALK PHOS 310 U/L (45-117); TROPONIN I < 0.02 ng/ml (0.00-0.05)
[2017-03-21 00:32] LABS: ALLENS TEST POSITIVE; ART PUNCT SITE LEFT RADIAL; LPM/O2% 100%; MECH. VENT. YES; METHEMOGLOBIN 0.7 % (0.4-1.5); PT. ON O2? YES; TYPE OF O2 MECH VENT; VENT RATE 14; VT/PRESS 350
[2017-03-21] MEDS ORDERED: PIPERACILLIN/TAZOB 4.5 GM 100 ML IVPB ONE (00:49)
[2017-03-21] MEDS ORDERED: morphine CARPU-JECT 2 MG/1 ML DISP.SYRIN IVPUSH ONE ×2 (01:06→02:27)
[2017-03-21] MEDS ORDERED: morphine CARPU-JECT 2 MG/1 ML DISP.SYRIN ONE ×2 (01:20→03:06)
--- NOTE | 2017-03-21 04:35 | HP ---
CHIEF COMPLAINT: PCP: HISTORY OF PRESENT ILLNESS: ER course was notable for: (1) (2) (3) Recent Travel: PAST MEDICAL HISTORY: PAST SURGICAL HISTORY: Social History: Smoking: Alcohol: Drugs: Family History: Allergies oxycodone [Oxycodone] Allergy (Severe, Verified 03/20/17 23:21) Nausea oxycodone HCl [From Percocet] Allergy (Severe, Verified 03/20/17 23:21) Nausea aspirin Allergy (Mild, Verified 03/20/17 23:21) blueberry [Blueberry] Allergy (Mild, Verified 03/20/17 23:21) Swelling fentanyl Allergy (Verified 03/20/17 23:21) HOME MEDICATIONS: Home Medications Medication Instructions Recorded Levothyroxine [Synthroid -] 25 mcg PO DAILY@0700 tablet 06/05/16 Albuterol 2.5/Ipratropium 0.5 1 amp NEB Q4HPO amp 09/17/16 [Duoneb -] Alprazolam [Xanax] 0.25 mg PO BID tablet MDD 2 09/17/16 Diltiazem [Cardizem -] 60 mg PO Q6HPO tablet 09/17/16 Magnesium Oxide [Mag-Ox -] 400 mg PO BID tablet 09/17/16 Baclofen [Lioresal -] 20 mg PO TID 10/01/16 Budesonide/Formeterol Fumarate 2 inh PO BID 11/01/16 [SYMBICORT 160/4.5mcg -] Diphenhydramine [Benadryl 12.5 25 mg PO Q4H PRN 11/01/16 MG/5 ML Oral Solution -] Eletriptan Hydrobromide [Relpax -] 40 mg PO PRN PRN 11/01/16 Gabapentin [Neurontin -] 300 mg PO TID 11/01/16 Metoprolol Tartrate [Lopressor -] 25 mg PO TID 11/01/16 Omeprazole 40 mg PO BID 11/01/16 Insulin Sliding Scale [Novolog 0 units SQ ACHS PRN 11/08/16 Vial Sliding Scale -] Doxepin HCl [Sinequan -] 25 mg PO HS capsule 11/20/16 Lactobacillus Acidophilus [Bacid -] 1 tab PO BID tab 11/20/16 Metoclopramide HCl [Reglan -] 10 mg PO TIDAC tablet 11/20/16 Multivitamins [Multivit ([facility] 1 tab PO DAILY tab 11/20/16 Formulary)] Ondansetron [Zofran -] 4 mg PO Q4H PRN #0 tablet 11/20/16 Zinc Oxide 1 applic TP BID tube 11/20/16 Insulin (Levemir) [Levemir Vial] 5 unit SQ DAILY #1 vial 11/21/16 Cholecalciferol (Vitamin D3) 2,000 unit PO DAILY #30 tab 11/28/16 [Vitamin D3 -] Albuterol Sulfate Inhaler - 2 puff IH Q4H PRN #0 inhaler 11/29/16 [Ventolin HFA Inhaler -] Prednisone 10 mg PO DAILY #15 tablet 11/29/16 Sucralfate [Carafate -] 1 gm PO QID tablet 12/16/16 Hydromorphone [Dilaudid -] 4 mg PO Q4H PRN #0 tablet MDD 24mg 12/17/16 Diltiazem [Cardizem -] 60 mg PO Q6HPO tablet 03/16/17 Mometasone Furoate [Asmanex 220Mcg 2 puff IH DAILY inhaler 03/16/17 -] Omeprazole Magnesium [Prilosec] 20 mg PO BID 03/21/17 REVIEW OF SYSTEMS CONSTITUTIONAL: Absent: fever, chills, diaphoresis, generalized weakness, malaise, loss of appetite, weight change HEENT: Absent: rhinorrhea, nasal congestion, throat pain, throat swelling, difficulty swallowing, mouth swelling, ear pain, eye pain, visual changes CARDIOVASCULAR: Absent: chest pain, syncope, palpitations, irregular heart rate, lightheadedness , peripheral edema RESPIRATORY: Absent: cough, shortness of breath, dyspnea with exertion, orthopnea, wheezing, stridor, hemoptysis GASTROINTESTINAL: Absent: abdominal pain, abdominal distension, nausea, vomiting, diarrhea, constipation, melena, hematochezia GENITOURINARY: Absent: dysuria, frequency, urgency, hesitancy, hematuria, flank pain, genital pain MUSCULOSKELETAL: Absent: myalgia, arthralgia, joint swelling, back pain, neck pain SKIN: Absent: rash, itching, pallor HEMATOLOGIC/IMMUNOLOGIC: Absent: easy bleeding, easy bruising, lymphadenopathy, frequent infections ENDOCRINE: Absent: unexplained weight gain, unexplained weight loss, heat intolerance, cold intolerance NEUROLOGIC: Absent: headache, focal weakness or paresthesias, dizziness, unsteady gait, seizure, mental status changes, bladder or bowel incontinence PSYCHIATRIC: Absent: anxiety, depression, suicidal or homicidal ideation, hallucinations. PHYSICAL EXAMINATION Vital Signs - 24 hr 03/20/17 03/20/17 03/20/17 23:21 23:30 23:48 Temperature 99.5 F Pulse Rate 106 H 104 H Pulse Rate [ Apical] Respiratory 20 14 25 H Rate Blood Pressure 144/100 Blood Pressure [Right Arm] O2 Sat by Pulse 99 70 L Oximetry (%) 03/21/17 03/21/17 01:25 02:42 Temperature Pulse Rate Pulse Rate [ 92 H Apical] Respiratory 16 16 Rate Blood Pressure Blood Pressure 131/94 [Right Arm] O2 Sat by Pulse 87 L Oximetry (%) GENERAL: Awake, alert, and fully oriented, in no acute distress. HEAD: Normal with no signs of trauma. EYES: Pupils equal, round and reactive to light, extraocular movements intact, sclera anicteric, conjunctiva clear. No lid lag. EARS, NOSE, THROAT: Ears normal, nares patent, oropharynx clear without exudates. Moist mucous membranes. NECK: Normal range of motion, supple without lymphadenopathy, JVD, or masses. LUNGS: Breath sounds equal, clear to auscultation bilaterally. No wheezes, and no crackles. No accessory muscle use. HEART: Regular rate and rhythm, normal S1 and S2 without murmur, rub or gallop. ABDOMEN: Soft, nontender, not distended, normoactive bowel sounds, no guarding, no rebound, no masses. No hepatomegaly or splenomegaly. MUSCULOSKELETAL: Normal range of motion at all joints. No bony deformities or tenderness. No CVA tenderness. UPPER EXTREMITIES: 2+ pulses, warm, well-perfused. No cyanosis. No clubbing. No peripheral edema. LOWER EXTREMITIES: 2+ pulses, warm, well-perfused. No calf tenderness. No peripheral edema. NEUROLOGICAL: Cranial nerves II-XII intact. Normal speech. Normal gait. PSYCHIATRIC: Cooperative. Good eye contact. Appropriate mood and affect. SKIN: Warm, dry, normal turgor, no rashes or lesions noted, normal capillary refill. Laboratory Results - last 24 hr 03/20/17 03/20/17 03/20/17 23:30 23:30 23:50 WBC 8.4 D RBC 3.24 L Hgb 8.4 L D Hct 26.7 L MCV 82.4 MCHC 31.7 L RDW 18.1 H Plt Count 310 D MPV 8.4 Neutrophils % 93.4 H Lymphocytes % 4.3 L D Monocytes % 2.1 L Eosinophils % 0.0 Basophils % 0.2 Puncture Site Left radial ABG pH 7.41 ABG pCO2 at Pt Temp 50.2 H ABG pO2 at Pt Temp 35.4 L* D ABG HCO3 31.4 H ABG O2 Sat (Measured) 65.8 L* ABG O2 Content 9.1 L* ABG Base Excess 6.4 H Francis Test Positive Carboxyhemoglobin 1.6 Methemoglobin 0.7 O2 Delivery Device Mech vent Oxygen Flow Rate 100% Vent Mode A/c Vent Rate 14 Mechanical Rate Yes PEEP 5.0 Pressure Support Vent 350 Sodium Potassium Chloride Carbon Dioxide Anion Gap BUN Creatinine Creat Clearance w eGFR Random Glucose Calcium Total Bilirubin AST ALT Alkaline Phosphatase Creatine Kinase Troponin I B-Natriuretic Peptide 361.30 H Total Protein Albumin 03/20/17 23:50 WBC RBC Hgb Hct MCV MCHC RDW Plt Count MPV Neutrophils % Lymphocytes % Monocytes % Eosinophils % Basophils % Puncture Site ABG pH ABG pCO2 at Pt Temp ABG pO2 at Pt Temp ABG HCO3 ABG O2 Sat (Measured) ABG O2 Content ABG Base Excess Francis Test Carboxyhemoglobin Methemoglobin O2 Delivery Device Oxygen Flow Rate Vent Mode Vent Rate Mechanical Rate PEEP Pressure Support Vent Sodium 144 Potassium 3.4 L D Chloride 103 Carbon Dioxide 27 Anion Gap 14 BUN 25 H Creatinine 0.6 D Creat Clearance w eGFR > 60 Random Glucose 211 H Calcium 7.6 L Total Bilirubin 0.5 D AST 91 H D ALT 124 H D Alkaline Phosphatase 310 H D Creatine Kinase 40 Troponin I < 0.02 B-Natriuretic Peptide Total Protein 5.9 L Albumin 2.8 L ASSESSMENT/PLAN:
[2017-03-21 04:47] LABS: ALLENS TEST POSITIVE; ART PUNCT SITE LEFT RADIAL; ARTERIAL BLD GAS O2 SATURATION 94.8 % (90-98.9); ARTERIAL BLOOD GAS BASE EXCESS 9.4 meq/l (-2-2); ARTERIAL BLOOD GAS PO2 71.4 mmHg (80-100); ARTERIAL BLOOD GAS pH 7.45 (7.35-7.45); LPM/O2% 40%; MECH. VENT. YES; PT. ON O2? YES; TYPE OF O2 MECH VENT; VENT RATE 14; VT/PRESS 350
[2017-03-21 04:48] LABS: ARTERIAL BLOOD GAS HCO3 34.5 meq/L (22-26)
--- NOTE | 2017-03-21 06:41 | HP ---
CHIEF COMPLAINT: Unresponsive PCP: None HISTORY OF PRESENT ILLNESS: This is a 51 y/o female with a significant medical history of COPD (O2 dep), Acute on Chronic Respiratory Failure, Hypercapnia, Hypoxia, Asthma, HTN, DM, Hypothyroidism, Uterine Ca, Renal Insufficiency s/p Stents, Bipolar Stage II, Depression, Chronic Back Pain. Who presents to the emergency department from [facility] found unresponsive by staff, intubated in the by EMS. Patient is awake attempts to speak with the ET- tube. Unable to obtain HPI. ER course was notable for: (1) ABG- 7.41/50.2/35.4/31.4/65.8 (2) Chest Xray- Multifocal lobular right infiltrate (3) H/H 8.4/26.7 (4) Transaminitis 3-5xNL Recent Travel: None PAST MEDICAL HISTORY: See HPI PAST SURGICAL HISTORY: See HPI Social History: Smoking: Former cigarette Alcohol: None Drugs: Presently at [facility] Family History: Unable to Obtain Allergies oxycodone [Oxycodone] Allergy (Severe, Verified 03/20/17 23:21) Nausea oxycodone HCl [From Percocet] Allergy (Severe, Verified 03/20/17 23:21) Nausea aspirin Allergy (Mild, Verified 03/20/17 23:21) blueberry [Blueberry] Allergy (Mild, Verified 03/20/17 23:21) Swelling fentanyl Allergy (Verified 03/20/17 23:21) HOME MEDICATIONS: Home Medications Medication Instructions Recorded Levothyroxine [Synthroid -] 25 mcg PO DAILY@0700 tablet 06/05/16 Albuterol 2.5/Ipratropium 0.5 1 amp NEB Q4HPO amp 09/17/16 [Duoneb -] Alprazolam [Xanax] 0.25 mg PO BID tablet MDD 2 09/17/16 Diltiazem [Cardizem -] 60 mg PO Q6HPO tablet 09/17/16 Magnesium Oxide [Mag-Ox -] 400 mg PO BID tablet 09/17/16 Baclofen [Lioresal -] 20 mg PO TID 10/01/16 Budesonide/Formeterol Fumarate 2 inh PO BID 11/01/16 [SYMBICORT 160/4.5mcg -] Diphenhydramine [Benadryl 12.5 25 mg PO Q4H PRN 11/01/16 MG/5 ML Oral Solution -] Eletriptan Hydrobromide [Relpax -] 40 mg PO PRN PRN 11/01/16 Gabapentin [Neurontin -] 300 mg PO TID 11/01/16 Metoprolol Tartrate [Lopressor -] 25 mg PO TID 11/01/16 Omeprazole 40 mg PO BID 11/01/16 Insulin Sliding Scale [Novolog 0 units SQ ACHS PRN 11/08/16 Vial Sliding Scale -] Doxepin HCl [Sinequan -] 25 mg PO HS capsule 11/20/16 Lactobacillus Acidophilus [Bacid -] 1 tab PO BID tab 11/20/16 Metoclopramide HCl [Reglan -] 10 mg PO TIDAC tablet 11/20/16 Multivitamins [Multivit ([facility] 1 tab PO DAILY tab 11/20/16 Formulary)] Ondansetron [Zofran -] 4 mg PO Q4H PRN #0 tablet 11/20/16 Zinc Oxide 1 applic TP BID tube 11/20/16 Insulin (Levemir) [Levemir Vial] 5 unit SQ DAILY #1 vial 11/21/16 Cholecalciferol (Vitamin D3) 2,000 unit PO DAILY #30 tab 11/28/16 [Vitamin D3 -] Albuterol Sulfate Inhaler - 2 puff IH Q4H PRN #0 inhaler 11/29/16 [Ventolin HFA Inhaler -] Prednisone 10 mg PO DAILY #15 tablet 11/29/16 Sucralfate [Carafate -] 1 gm PO QID tablet 12/16/16 Hydromorphone [Dilaudid -] 4 mg PO Q4H PRN #0 tablet MDD 24mg 12/17/16 Diltiazem [Cardizem -] 60 mg PO Q6HPO tablet 03/16/17 Mometasone Furoate [Asmanex 220Mcg 2 puff IH DAILY inhaler 03/16/17 -] Omeprazole Magnesium [Prilosec] 20 mg PO BID 03/21/17 REVIEW OF SYSTEMS Unable to Obtain- Intubated CONSTITUTIONAL: Absent: fever, chills, diaphoresis, generalized weakness, malaise, loss of appetite, weight change HEENT: Absent: rhinorrhea, nasal congestion, throat pain, throat swelling, difficulty swallowing, mouth swelling, ear pain, eye pain, visual changes CARDIOVASCULAR: Absent: chest pain, syncope, palpitations, irregular heart rate, lightheadedness , peripheral edema RESPIRATORY: Absent: cough, shortness of breath, dyspnea with exertion, orthopnea, wheezing, stridor, hemoptysis GASTROINTESTINAL: Absent: abdominal pain, abdominal distension, nausea, vomiting, diarrhea, constipation, melena, hematochezia GENITOURINARY: Absent: dysuria, frequency, urgency, hesitancy, hematuria, flank pain, genital pain MUSCULOSKELETAL: Absent: myalgia, arthralgia, joint swelling, back pain, neck pain SKIN: Absent: rash, itching, pallor HEMATOLOGIC/IMMUNOLOGIC: Absent: easy bleeding, easy bruising, lymphadenopathy, frequent infections ENDOCRINE: Absent: unexplained weight gain, unexplained weight loss, heat intolerance, cold intolerance NEUROLOGIC: Absent: headache, focal weakness or paresthesias, dizziness, unsteady gait, seizure, mental status changes, bladder or bowel incontinence PSYCHIATRIC: Absent: anxiety, depression, suicidal or homicidal ideation, hallucinations. PHYSICAL EXAMINATION Vital Signs - 24 hr 03/21/17 05:06 Pulse Rate [ 129 H Apical] Respiratory 19 Rate Blood Pressure 107/68 [Right Arm] O2 Sat by Pulse 97 Oximetry (%) Laboratory Results - last 24 hr 03/20/17 03/20/17 03/20/17 23:30 23:30 23:50 WBC 8.4 D RBC 3.24 L Hgb 8.4 L D Hct 26.7 L MCV 82.4 MCHC 31.7 L RDW 18.1 H Plt Count 310 D MPV 8.4 Neutrophils % 93.4 H Lymphocytes % 4.3 L D Monocytes % 2.1 L Eosinophils % 0.0 Basophils % 0.2 Puncture Site Left radial ABG pH 7.41 ABG pCO2 at Pt Temp 50.2 H ABG pO2 at Pt Temp 35.4 L* D ABG HCO3 31.4 H ABG O2 Sat (Measured) 65.8 L* ABG O2 Content 9.1 L* ABG Base Excess 6.4 H Francis Test Positive Carboxyhemoglobin 1.6 Methemoglobin 0.7 O2 Delivery Device Mech vent Oxygen Flow Rate 100% Vent Mode A/c Vent Rate 14 Mechanical Rate Yes PEEP 5.0 Pressure Support Vent 350 Sodium Potassium Chloride Carbon Dioxide Anion Gap BUN Creatinine Creat Clearance w eGFR Random Glucose Calcium Total Bilirubin AST ALT Alkaline Phosphatase Creatine Kinase Troponin I B-Natriuretic Peptide 361.30 H Total Protein Albumin 03/20/17 03/21/17 23:50 04:23 WBC RBC Hgb Hct MCV MCHC RDW Plt Count MPV Neutrophils % Lymphocytes % Monocytes % Eosinophils % Basophils % Puncture Site Left radial ABG pH 7.45 ABG pCO2 at Pt Temp 50.3 H ABG pO2 at Pt Temp 71.4 L D ABG HCO3 34.5 H ABG O2 Sat (Measured) 94.8 ABG O2 Content 15.4 ABG Base Excess 9.4 H Francis Test Positive Carboxyhemoglobin Methemoglobin O2 Delivery Device Mech vent Oxygen Flow Rate 40% Vent Mode A/c Vent Rate 14 Mechanical Rate Yes PEEP 10.0 Pressure Support Vent 350 Sodium 144 Potassium 3.4 L D Chloride 103 Carbon Dioxide 27 Anion Gap 14 BUN 25 H Creatinine 0.6 D Creat Clearance w eGFR > 60 Random Glucose 211 H Calcium 7.6 L Total Bilirubin 0.5 D AST 91 H D ALT 124 H D Alkaline Phosphatase 310 H D Creatine Kinase 40 Troponin I < 0.02 B-Natriuretic Peptide Total Protein 5.9 L Albumin 2.8 L GENERAL: Obese, Intubated on mechanical ventilator, opens eyes responds to name, in no acute distress. HEAD: Normal with no signs of trauma. EYES: Pupils equal, round and reactive to light, extraocular movements intact, sclera anicteric, conjunctiva clear. No lid lag. EARS, NOSE, THROAT: Ears normal, nares patent, Endotracheal tube in place, Dry mucousa NECK: Normal range of motion, supple without lymphadenopathy, JVD, or masses. LUNGS: Some air movement. Diffuse crackles to right lobes. No wheezes. No accessory muscle use. HEART: Tachycardia, normal S1 and S2 without murmur, rub or gallop. ABDOMEN: Soft, obese, nontender, not distended, normoactive bowel sounds, no guarding, no rebound, no masses. No hepatomegaly or splenomegaly. MUSCULOSKELETAL: Normal range of motion at all joints. No bony deformities or tenderness. No CVA tenderness. UPPER EXTREMITIES: 2+ pulses, warm, well-perfused. No cyanosis. No clubbing. No peripheral edema. LOWER EXTREMITIES: 2+ pulses, warm, well-perfused. No calf tenderness. No peripheral edema. NEUROLOGICAL: Cranial nerves II-XII intact. unable to assess- intubated. Gait not observed. PSYCHIATRIC: Cooperative. Good eye contact. Appropriate mood and affect. SKIN: Eccyhmotic bruising to abdomen noted. Warm, dry, normal turgor, no rashes. normal capillary refill. Radiology EXAM: CT angiogram of the chest IMAGES: 814 INDICATION: Left lung white out. Respiratory failure. Rule out PE. DATE OF SERVICE: 2017-03-21 02:20:06.0 COMPARISON: none FINDINGS: There is no PE or dissection. Heart size is normal. The right mainstem bronchus has been intubated and the tube must be pulled back approximately 4 cm. There is associated complete collapse of the left lung with mediastinal shift to the left. There are multifocal lobular infiltrates in the right lung, suggest pneumonia. There is no pleural or pericardial effusion. No fractures identified. The upper abdominal structures are normal. Is prominent streak artifact from multilevel spinal fixation hardware. Findings discussed with Dr. Spencer at 3 AM. IMPRESSION: Intubation of the right mainstem bronchus with complete collapse of the left lung. Endotracheal tube should be pulled back approximately 4 cm Multifocal right lung lobular pneumonia. THIS DOCUMENT HAS BEEN ELECTRONICALLY SIGNED ASSESSMENT/PLAN: This is a 51 y/o female with a PMHx of COPD (O2 dependent), Asthma, HTN, Chronic Back Pain, Hypothyroid, Renal Insufficiency. Admitted to ICU for Acute on Chronic Respiratory Failure, Hypercapnia, Hypoxia, HAP for further evaluation of their emergent condition. 1. Acute on Chronic Respiratory Failure, Hypercapnia, Hypoxia/HAP - Admit to ICU - Cardiac Monitoring - Mechanical Ventilator- - Repeat CXR - ABG- Hypercapnia/Hypoxia - Repeat ABG-will decrease FIO2 and repeat again - Appreciate Pulmonary/Environmental Conservation Professor Consult - [id number] Score 1 - Blood Cultures- pending - Zosyn given in ED - Will continue Zosyn and add Levofloxacin, Vancomycin - Appreciate ID Consult - Repeat CBC, BMP - Titus Catheter - Strict INOs - Urine for Legionella - Consider Palliative Care 2. Tachycardia - Likely secondary to Infectious Process vs ?Sepsis - Gentle IVF Bolus, maintenance closely monitor concern for overload - qSOFA Score 1 - Lactate Acid in am - Monitor vitals 3. Diabetes Mellitus - Uncontrolled - BGMs - ISS - HgbA1C in am - Will hold home meds for now until hemodynamically stable 4. HTN - Controlled - Will restart meds when OGT placement confirmed - Monitor renal function 5. Anemia - Hgb at baseline - Continue home med - Will transfuse if Hb < 7.0 6. COPD - Continue home meds 7. Asthma - Continue home meds 8. Hypothyroidism - Check TSH level - Continue home med 9. Renal Insufficiency - Continue to monitor and treat with interventions accordingly 10. FEN - NS@60cc/hr - Replete lytes prn - NPO 11 DVT/PPI Prophylaxis - SCDs - Heparin SQ - PPI Code Status: Full Code Dispo: Continue Inpatient Care Visit type - Emergency Visit Emergency Visit: Yes ED Registration Date: 03/21/17 Care time: The patient presented to the Emergency Department on the above date and was hospitalized for further evaluation of their emergent condition. - New Patient This patient is new to me today: Yes Date on this admission: 03/21/17 - Critical Care Critical Care patient: Yes Total Critical Care Time (in minutes): 35 Critical Care Statement: The care of this patient involved high complexity decision making to prevent further life threatening deterioration of the patient 's condition and/or to evalute & treat vital organ system(s) failure or risk of failure.
[2017-03-21 07:46] VITALS: BMI 24.0
[2017-03-21] MEDS ORDERED: morphine CARPU-JECT 2 MG/1 ML DISP.SYRIN IVPUSH PRN (07:53)
[2017-03-21] MEDS ORDERED: SODIUM CHLORIDE 250 ML IV STA (07:58)
[2017-03-21] MEDS ORDERED: SODIUM CHLORIDE 1,000 ML IV SCH (08:00)
[2017-03-21] MEDS ORDERED: LEVOFLOXACIN 750 MG IVPB 150 ML IVPB ONE (08:15)
[2017-03-21] MEDS ORDERED: IPRATROPIUM BR 0.02% 0.5 MG/2.5 ML VIAL.NEB. NEB PRN (08:32)
--- NOTE | 2017-03-21 09:20 | CONSULT ---
Consult Consult Specialty:: PULM/CCM Referred by:: IRINEO Reason for Consultation:: Acute Respiratory Failure - History of Present Illness Chief Complaint: SOB History of Present Illness: 51 F, well known to me from multiple previous admissions. O2 dependent COPD, Acute on Chronic Respiratory Failure, Asthma, HTN, DM, Hypothyroidism, Uterine Ca, Renal Insufficiency s/p Stents, Bipolar Stage II, Depression, and chronic low back pain. Sent from [facility] after being found unresponsive by staff. Apparently she was intubated in the field by EMS. Now seen in the ICU, intubated and responsive. CXR: Right mainstem intubation / left atelectasis. - History Source History Provided By: Medical Record Limitations to Obtaining History: Clinical Condition - Past Medical History Cardio/Vascular: Yes: AFIB (Paroxysmal), HTN, Hyperlipdemia Pulmonary: Yes: Asthma, COPD, O2 Dependent Renal/: Yes: Cancer (Uterine), Other (STENTS/[place] in the past) ...: No Infectious Disease: Yes: C-Diff (june 2014), Other (Osteomyelitis of thoracic spine) Psych: Yes: Anxiety, Bipolar, Depression Musculoskeletal: Yes: Chronic low back pain Additional Medical History: Frequent c/o abdominal pain-extensive w/u in the past negative. Presumed adhesions from prior surgeries. - Past Surgical History Past Surgical History: Yes: Hysterectomy (with BSO) - Alcohol/Substance Use Hx Alcohol Use: No - Smoking History Smoking history: Former smoker Have you smoked in the past 12 months: No Aproximately how many cigarettes per day: 3 If you are a former smoker, when did you quit?: 10/11/14 - Social History Usual Living Arrangement: With Significant Other 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) History of Recent Travel: No Home Medications - Allergies Allergies/Adverse Reactions: Allergies Allergy/AdvReac Type Severity Reaction Status Date / Time oxycodone [Oxycodone] Allergy Severe Nausea Verified 03/20/17 23:21 oxycodone HCl [From Percocet] Allergy Severe Nausea Verified 03/20/17 23:21 aspirin Allergy Mild Verified 03/20/17 23:21 blueberry [Blueberry] Allergy Mild Swelling Verified 03/20/17 23:21 fentanyl Allergy Verified 03/20/17 23:21 - Home Medications Home Medications: Ambulatory Orders Levothyroxine [Synthroid -] 25 mcg PO DAILY@0700 tablet 07/14/16 Albuterol 2.5/Ipratropium 0.5 [Duoneb -] 1 amp NEB Q4HPO amp 09/17/16 Alprazolam [Xanax] 0.25 mg PO BID tablet MDD 2 09/17/16 Diltiazem [Cardizem -] 60 mg PO Q6HPO tablet 09/17/16 Magnesium Oxide [Mag-Ox -] 400 mg PO BID tablet 09/17/16 Baclofen [Lioresal -] 20 mg PO TID 10/01/16 Budesonide/Formeterol Fumarate [SYMBICORT 160/4.5mcg -] 2 inh PO BID 11/01/16 Diphenhydramine [Benadryl 12.5 MG/5 ML Oral Solution -] 25 mg PO Q4H PRN Eletriptan Hydrobromide [Relpax -] 40 mg PO PRN PRN 11/01/16 Gabapentin [Neurontin -] 300 mg PO TID 11/01/16 Metoprolol Tartrate [Lopressor -] 25 mg PO TID 11/01/16 Omeprazole 40 mg PO BID 11/01/16 Insulin Sliding Scale [Novolog Vial Sliding Scale -] 0 units SQ ACHS PRN Doxepin HCl [Sinequan -] 25 mg PO HS capsule 11/20/16 Lactobacillus Acidophilus [Bacid -] 1 tab PO BID tab 11/20/16 Metoclopramide HCl [Reglan -] 10 mg PO TIDAC tablet 11/20/16 Multivitamins [Multivit ([facility] Formulary)] 1 tab PO DAILY tab 11/20/16 Ondansetron [Zofran -] 4 mg PO Q4H PRN #0 tablet 11/20/16 Zinc Oxide 1 applic TP BID tube 11/20/16 Insulin (Levemir) [Levemir Vial] 5 unit SQ DAILY #1 vial 11/21/16 Cholecalciferol (Vitamin D3) [Vitamin D3 -] 2,000 unit PO DAILY #30 tab Albuterol Sulfate Inhaler - [Ventolin HFA Inhaler -] 2 puff IH Q4H PRN #0 inhaler 11/29/16 Prednisone 10 mg PO DAILY #15 tablet 11/29/16 Sucralfate [Carafate -] 1 gm PO QID tablet 12/16/16 Hydromorphone [Dilaudid -] 4 mg PO Q4H PRN #0 tablet MDD 24mg 12/17/16 Diltiazem [Cardizem -] 60 mg PO Q6HPO tablet 03/16/17 Mometasone Furoate [Asmanex 220Mcg -] 2 puff IH DAILY inhaler 03/16/17 Omeprazole Magnesium [Prilosec] 20 mg PO BID 03/21/17 Family Disease History - Family Disease History Family Disease History: Diabetes: Mother (heart surgery), Heart Disease: Mother , CA: Father (leukemia) Review of Systems Unable to obtain ROS, reason: not able to provide Physical Exam Vital Signs: Vital Signs Temperature 98.8 F 03/21/17 06:44 Pulse Rate 128 H 03/21/17 08:00 Respiratory Rate 20 03/21/17 08:00 Blood Pressure 115/69 03/21/17 08:00 O2 Sat by Pulse Oximetry (%) 97 03/21/17 06:44 Constitutional: Yes: Anxious, Moderate Distress Eyes: Yes: Conjunctiva Clear, EOM Intact HENT: Yes: Atraumatic, Normocephalic Neck: Yes: Supple, Trachea Midline Cardiovascular: Yes: Tachycardia Respiratory: Yes: Diminished, Dullness, Intubated, Mechanically Ventilated, Poor Air Entry, Rhonchi, Tachypnea. No: Accessory Muscle Use, Stridor, Wheezes Gastrointestinal: Yes: Normal Bowel Sounds, Soft ...Rectal Exam: Yes: Deferred Renal/: Yes: WNL Musculoskeletal: Yes: WNL Extremities: Yes: Shortened Edema: No Peripheral Pulses WNL: Yes Integumentary: Yes: WNL Imaging - Results Chest X-ray: Report Reviewed, Image Reviewed Cat Scan: Report Reviewed, Image Reviewed Problem List - Problems (1) Acute exacerbation of COPD with asthma Code(s): J44.1 - CHRONIC OBSTRUCTIVE PULMONARY DISEASE W (ACUTE) EXACERBATION J45.901 - UNSPECIFIED ASTHMA WITH (ACUTE) EXACERBATION (2) Acute hypercapnic respiratory failure Code(s): J96.02 - ACUTE RESPIRATORY FAILURE WITH HYPERCAPNIA (3) Anemia Code(s): D64.9 - ANEMIA, UNSPECIFIED (4) Collapse of left lung Code(s): J98.11 - ATELECTASIS (5) DVT prophylaxis Code(s): [id number] - (6) Pneumonia Code(s): J18.9 - PNEUMONIA, UNSPECIFIED ORGANISM Qualifiers: Pneumonia type: due to unspecified organism Laterality: right Lung location: upper lobe of lung Qualified Code(s): J18.1 - Lobar pneumonia, unspecified organism (7) Acute and chronic respiratory failure Code(s): J96.20 - ACUTE AND CHR RESP FAILURE, UNSP W HYPOXIA OR HYPERCAPNIA Qualifiers: Respiratory failure complication: hypoxia Qualified Code(s): J96.21 - Acute and chronic respiratory failure with hypoxia (8) Anxiety Code(s): F41.9 - ANXIETY DISORDER, UNSPECIFIED (9) Bipolar 2 disorder Code(s): F31.81 - BIPOLAR II DISORDER (10) Chronic back pain Code(s): M54.9 - DORSALGIA, UNSPECIFIED G89.29 - OTHER CHRONIC PAIN (11) Chronic respiratory failure with hypoxia Code(s): J96.11 - CHRONIC RESPIRATORY FAILURE WITH HYPOXIA (12) Depression with anxiety Code(s): F41.8 - OTHER SPECIFIED ANXIETY DISORDERS (13) HTN (hypertension) Code(s): I10 - ESSENTIAL (PRIMARY) HYPERTENSION Qualifiers: (14) Hyperlipidemia Code(s): E78.5 - HYPERLIPIDEMIA, UNSPECIFIED (15) Opioid dependence Code(s): F11.20 - OPIOID DEPENDENCE, UNCOMPLICATED (16) Paroxysmal atrial fibrillation Code(s): I48.0 - PAROXYSMAL ATRIAL FIBRILLATION (17) Diabetes mellitus, insulin dependent (IDDM), uncontrolled Code(s): E10.65 - TYPE 1 DIABETES MELLITUS WITH HYPERGLYCEMIA (18) GERD (gastroesophageal reflux disease) Code(s): K21.9 - GASTRO-ESOPHAGEAL REFLUX DISEASE WITHOUT ESOPHAGITIS (19) Mood disorder Code(s): F39 - UNSPECIFIED MOOD [AFFECTIVE] DISORDER (20) Neuropathy Code(s): G62.9 - POLYNEUROPATHY, UNSPECIFIED (21) Non compliance w medication regimen Code(s): Z91.14 - PATIENT'S OTHER NONCOMPLIANCE WITH MEDICATION REGIMEN (22) Total body pain Code(s): R52 - PAIN, UNSPECIFIED (23) Chronic abdominal pain Code(s): R10.9 - UNSPECIFIED ABDOMINAL PAIN G89.29 - OTHER CHRONIC PAIN Assessment/Plan Adjust ETT to 21cm -> STAT CXR ABX per ID Medrol BD TX VTE prophylaxis May need additional access Enteral feeds if not able to extubate by tomorrow Dr Castaneda Critical care time spent in reviewing chart, evaluating patient and formulating plan 36 min
[2017-03-21 09:35] LABS: BASOPHIL 0.8 % (0-2.0); EOSINOPHIL 0.4 % (0-4.5); MCH 26.2 pg (25.7-33.7); MCHC 32.1 g/dl (32.0-36.0); MEAN CELL VOLUME 81.6 fl (80-96); MEAN PLT VOLUME 7.8 fl (7.5-11.1); NEUTROPHILS 88.6 % (42.8-82.8); PLATELET COUNT 283 K/MM3 (134-434); RDW 17.9 % (11.6-15.6); WHITE BLOOD COUNT 9.5 K/mm3 (4.0-10.0)
[2017-03-21] MEDS ORDERED: PROPOFOL 100 ML IVPB SCH (09:45)
[2017-03-21] MEDS ORDERED: PROPOFOL 100 ML ONE ×2 (09:46→19:12)
[2017-03-21 09:58] LABS: COCKROFT - GAULT 119.629; CREATININE 0.5 mg/dL (0.55-1.02); MAGNESIUM 1.9 mg/dL (1.8-2.4); PHOSPHOROUS 2.2 mg/dL (2.5-4.9)
[2017-03-21] MEDS ORDERED: methylPREDNISolone NA SUCC 125 MG/2 ML VIAL IVPB SCH (10:00)
[2017-03-21] MEDS ORDERED: VANCOMYCIN 1 GRAM (PRE-DOCKED) 1,000 MG/250 ML BAG IVPB SCH (10:00)
[2017-03-21] MEDS: methylPREDNISolone NA SUCC 40 MG/1 ML VIAL IVPB SCH ×2 (10:12→21:01)
[2017-03-21] MEDS: FAMOTIDINE 20 MG/50 ML IVPB 50 ML IVPB SCH (10:13)
[2017-03-21] MEDS: ARFORMOTEROL TARTRATE 15 MCG/2 ML VIAL NEB SCH ×2 (10:32→22:00)
--- NOTE | 2017-03-21 10:45 | PN ---
Progress Note (short form) - Note Progress Note: ID Consult dictated Respiratory failure Possible HCAP/ sepsis secondary to pneumonia COPD exacerbation Hx + sputum c/s Pseudomonas Await sepsis workup Empiric zosyn ventilatory support
[2017-03-21] MEDS: MUPIROCIN 2% TOPICAL OINTMENT FOR DECOLONIZATION NS SCH ×2 (11:15→21:01)
--- NOTE | 2017-03-21 11:16 | EKG ---
Test Reason : Blood Pressure : / mmHG Vent. Rate : 142 BPM Atrial Rate : 142 BPM P-R Int : 112 ms QRS Dur : 080 ms QT Int : 284 ms P-R-T Axes : 052 066 016 degrees QTc Int : 436 ms SINUS TACHYCARDIA WITH PREMATURE SUPRAVENTRICULAR COMPLEXES NONSPECIFIC ST ABNORMALITY ABNORMAL ECG WHEN COMPARED WITH ECG OF 21-MAR-2017 00:11, PREMATURE SUPRAVENTRICULAR COMPLEXES ARE NOW PRESENT NONSPECIFIC T WAVE ABNORMALITY NO LONGER EVIDENT IN ANTERIOR LEADS Confirmed by ESCOBAR WRIGHT, NICK ([id number]) on 03/21/2017 11:15:49 AM Referred By: Clark RENAE Confirmed By:NICK CODY MD
--- NOTE | 2017-03-21 11:19 | EKG ---
Test Reason : Blood Pressure : / mmHG Vent. Rate : 102 BPM Atrial Rate : 102 BPM P-R Int : 116 ms QRS Dur : 100 ms QT Int : 360 ms P-R-T Axes : 039 009 040 degrees QTc Int : 469 ms SINUS TACHYCARDIA NONSPECIFIC T WAVE ABNORMALITY ABNORMAL ECG WHEN COMPARED WITH ECG OF 12-MAR-2017 10:21, NO SIGNIFICANT CHANGE WAS FOUND Confirmed by NICK CODY MD ([id number]) on 03/21/2017 11:19:39 AM Referred By: Confirmed By:NICK CODY MD
--- NOTE | 2017-03-21 11:20 | CONS ---
DATE OF CONSULTATION: DATE OF DICTATION: 03/21/2017 INFECTIOUS DISEASE CONSULTATION HISTORY OF PRESENT ILLNESS: The patient is a 51-year-old female with a history of COPD and recurrent episodes of respiratory failure, evaluated for pneumonia. History was obtained from the chart as she cannot give a history. [facility] after being found un[facility]. She was noted to have labored breathing. She required intubation. The intubation apparently was complicated by intubation of the right main stem bronchus. She developed complete atelectasis of the left lung. She was admitted to the intensive care unit, where her course has been complicated by tachycardia. She is awake and responsive. She indicates discomfort in the left flank area. She has had multiple hospital admissions and was recently hospitalized with exacerbation of COPD. She has had a history of respiratory failure in the past, as well as fungemia from August 2016. PAST MEDICAL HISTORY: Positive for COPD, asthma, diabetes mellitus, history of respiratory failure, atrial fibrillation, chronic low back pain, hypertension, hyperlipidemia, colitis, bipolar disorder, fungemia. PAST SURGICAL HISTORY: Status post back surgery, with orthopedic hardware in place. ALLERGIES: OXYCODONE, ASPIRIN. MEDICATIONS: Include Solu-Medrol, Bactroban, Versed, propofol. SOCIAL HISTORY: She lives in a [facility] facility. She is a former smoker. REVIEW OF SYSTEMS: Neurologic: Positive for unresponsive. No seizure activity, focal weakness. Cardiac: Negative for chest pain or palpitations. Respiratory: As per HPI. Gastrointestinal: Negative for vomiting or diarrhea. Genitourinary: Negative for urinary tract infection. LABORATORY DATA: White count 9.5, hematocrit 27.2, platelet count 283. BUN 23, creatinine 0.5, total bilirubin 0.5, alkaline phosphatase 310, AST 91, ALT 124. Sputum culture in the past has grown pseudomonas. DIAGNOSTIC STUDIES: Chest x-ray shows complete opacification of the left hemithorax. PHYSICAL EXAMINATION: General: She is awake and responsive, on the ventilator. Vital Signs: Temperature 98.8, blood pressure 115/89, pulse 128 and regular, respirations 20 per minute. HEENT: Sclerae anicteric. Cardiac: Heart sounds S1, S2, tachycardic. Lungs: Air entry bilaterally. Abdomen: Obese, soft, nontender. Extremities: Positive for pedal edema. There are ecchymotic areas present on the trunk and upper extremities. IMPRESSION: 1. Acute respiratory failure. 2. Possible healthcare-acquired pneumonia. 3. Possible sepsis secondary to pneumonia. 4. Chronic obstructive pulmonary disease exacerbation. 5. History of positive sputum culture for pseudomonas. PLAN: Await sepsis workup. Continue ventilatory support. Empiric antibiotic coverage with Zosyn 3.375 g IV piggyback every 8 hours. Continue steroids and inhaled bronchodilators. We will follow. Thank you for the kind referral. DENISHA AMLANZAR M.D. [id number]
[2017-03-21 11:41] LABS: ARTERIAL BLD GAS O2 SATURATION 98.3 % (90-98.9); ARTERIAL BLOOD GAS BASE EXCESS 9.1 meq/l (-2-2); ARTERIAL BLOOD GAS PO2 97.3 mmHg (80-100); ARTERIAL BLOOD GAS pH 7.45 (7.35-7.45)
[2017-03-21 11:42] LABS: ALLENS TEST POSITIVE; ART PUNCT SITE RIGHT RADIAL; LPM/O2% 40; PT. ON O2? YES; TYPE OF O2 MEC.VENT
[2017-03-21 11:43] LABS: MECH. VENT. YES; VENT RATE 14; VT/PRESS 350
[2017-03-21 11:45] LABS: ARTERIAL BLOOD GAS HCO3 33.8 meq/L (22-26)
[2017-03-21] MEDS: INSULIN SLIDING SCALE (NOVOLOG) 1 VIAL SQ SCH ×3 (12:14→22:14)
[2017-03-21] MEDS: HEPARIN NA (PORCINE) 5,000 UNITS/ML 1ML VIAL SQ SCH ×2 (15:00→21:01)
[2017-03-21] MEDS: POTASSIUM CHLORIDE ORAL LIQUID 20 MEQ/15 ML NGT SCH ×2 (16:00→21:00)
[2017-03-21] MEDS: PIPERACILLIN/TAZOB 3.375 GM 50 ML IVPB SCH (17:31)
--- NOTE | 2017-03-21 17:43 | PN ---
Physical Exam: SUBJECTIVE: Patient seen and examined at bedside. OBJECTIVE: Vital Signs Period Temp Pulse Resp BP Sys/Dan Pulse Ox Last 24 Hr 98.5 F-98.8 F 119-140 14-26 106-126/60-79 40-98 GENERAL: The patient is intubated, sedated. HEAD: Normal with no signs of trauma. LUNGS: Scattered rhonchi, wheezes HEART: Regular rate and rhythm, S1, S2 without murmur, rub or gallop. ABDOMEN: Soft, nontender, nondistended UPPER EXTREMITIES: 1+ bilateral edema LOWER EXTREMITIES: no edema. Laboratory Results - last 24 hr 03/21/17 03/21/17 03/21/17 08:40 08:40 08:40 WBC 9.5 RBC 3.33 L Hgb 8.7 L Hct 27.2 L MCV 81.6 MCHC 32.1 RDW 17.9 H Plt Count 283 MPV 7.8 Neutrophils % 88.6 H Lymphocytes % 7.9 L D Monocytes % 2.3 L Eosinophils % 0.4 D Basophils % 0.8 D Puncture Site ABG pH ABG pCO2 at Pt Temp ABG pO2 at Pt Temp ABG HCO3 ABG O2 Sat (Measured) ABG O2 Content ABG Base Excess Francis Test O2 Delivery Device Oxygen Flow Rate Vent Mode Vent Rate Mechanical Rate PEEP Pressure Support Vent Sodium 142 Potassium 2.5 L* D Chloride 97 L Carbon Dioxide 38 H D Anion Gap 7 L BUN 23 H Creatinine 0.5 L POC Glucometer Random Glucose 179 H Hemoglobin A1c % 6.3 H D Lactic Acid Calcium 8.0 L Phosphorus 2.2 L D Magnesium 1.9 03/21/17 03/21/17 03/21/17 08:40 11:30 12:12 WBC RBC Hgb Hct MCV MCHC RDW Plt Count MPV Neutrophils % Lymphocytes % Monocytes % Eosinophils % Basophils % Puncture Site Right radial ABG pH 7.45 ABG pCO2 at Pt Temp 49.4 H ABG pO2 at Pt Temp 97.3 D ABG HCO3 33.8 H ABG O2 Sat (Measured) 98.3 ABG O2 Content 11.3 L ABG Base Excess 9.1 H Francis Test Positive O2 Delivery Device Mec.vent Oxygen Flow Rate 40 Vent Mode A/c Vent Rate 14 Mechanical Rate Yes PEEP 8.0 Pressure Support Vent 350 Sodium Potassium Chloride Carbon Dioxide Anion Gap BUN Creatinine POC Glucometer 261.52841 Random Glucose Hemoglobin A1c % Lactic Acid 2.720 H* Calcium Phosphorus Magnesium Active Medications Generic Name Dose Route Start Last Admin Trade Name Freq PRN Reason Stop Dose Admin Arformoterol Tartrate 1 amp 03/21/17 10:00 03/21/17 10:32 Brovana (Restricted To Pulmonology/Resp) - NEB 1 amp BID EMMY Administration Chlorhexidine Gluconate 1 applic 03/21/17 22:00 Hibiclens For Decolonization - TP HS EMMY Heparin Sodium (Porcine) 5,000 unit 03/21/17 14:00 03/21/17 15:00 Heparin - SQ 5,000 unit TID EMMY Administration Sodium Chloride 1,000 mls @ 60 mls/hr 03/21/17 08:00 03/21/17 08:00 Normal Saline - IV 60 mls/hr ASDIR EMMY Administration Famotidine/Sodium Chloride 50 mls @ 100 mls/hr 03/21/17 10:00 03/21/17 10:13 Pepcid 20 Mg Premixed Ivpb - IVPB 100 mls/hr DAILY EMMY Administration Propofol 100 mls @ 1.67 mls/hr 03/21/17 09:45 03/21/17 10:30 Diprivan - IVPB 20 mcg/kg/min TITR EMMY Titration Protocol 5 MCG/KG/MIN Piperacillin Sod/Tazobactam Sod 50 mls @ 100 mls/hr 03/21/17 18:00 03/21/17 17: 31 Zosyn 3.375gm Ivpb (Pre-Docked) IVPB 100 mls/hr Q8H-IV EMMY Administration Protocol Insulin Aspart 0 vial 03/21/17 11:00 03/21/17 17:28 Novolog Vial Sliding Scale - SQ 4 units ACHS EMMY Administration Protocol Ipratropium [place] 1 amp 03/21/17 15:30 Atrovent 0.02% Nebulizer - NEB 03/28/17 08:32 Q6H EMMY Methylprednisolone Sodium Succinate 40 mg 03/21/17 10:00 03/21/17 10:12 Solu-Medrol - IVPB 40 mg BID EMMY Administration Midazolam HCl 2 mg 03/21/17 09:35 Versed - IVPUSH Q2H PRN ANXIETY Mupirocin 1 applic 03/21/17 10:00 03/21/17 11:15 Bactroban Ointment (For Decolonization) - NS 03/26/17 09:59 1 applic BID EMMY Administration Potassium Chloride 40 meq 03/21/17 15:30 03/21/17 16:00 Potassium Chloride Oral Liquid NGT 03/22/17 03:31 40 meq Q6H EMMY Administration ASSESSMENT/PLAN 51 year-old female, well-known to me from previous admission, with a PMH of HTN , paroxysmal afib, NIDDM, asthma/COPD O2 dependent, previous tracheostomy ( closed), uterine cancer, anxiety/depression/ bipolar disorder, chronic back pain and a dependency on narcotics. Admitted to [facility] 02/24-03/16/17 for COPD exacerbation and pseudomonas pneumonia. Hospital course was complicated by acute hypoxic and hypercapnic respiratory failure requiring two intubations. Patient was discharged on 03/16 to [facility]. Patient was found unresponsive and intubated by EMS. Acute on chronic hypercapnic and hypoxic respiratory failure --initial AB.41/50.2/35.4/31.4/65% on 100% FiO2; on admission ETT was in right mainstem bronchus; repositioned, left lung reinflated on CXR; hypercapnea persists but oxygenation is improved today with PaO2 97 on 40% FiO2 --leave intubated overnight, attempt to wean in am --patchy RUL, RML, and RLL infiltrates on CT (left lung opacified at time of imaging); start Zosyn (day #1) --IV steroids, inhalers, nebulizers Opioid dependency Polypharmacy --strong suspicion that respiratory failure is due, at least in part, to polypharmacy; patient has tenuous respiratory function at baseline, and she takes a large amount of sedating medications: alprazolam, baclofen, benadryl, gabapentin, ambien, doxepin, and high doses of dilaudid for chronic back pain --patient demands narcotics and if she does not get it she is abusive to the staff; she exhibits drug-seeking behavior --have discussed this with Dr. Castaneda; plan is to detox patient --requested pain management consult (Dr. Escamilla), detox consult (Dr. De La Cruz), psych consult for medication review (PRUDENCE Oswald) Lactic acidosis --repeat pending --IV fluids Paroxysmal afib --metoprolol and cardizem for rate control --[id number] score 3; not on anticoagulation secondary to a previous GI bleed Hypertension --continue metoprolol, cardizem IDDM --Levemir 5mg BID --Novolog sliding scale coverage Hypothroidism --continue levothyroxine --TSH ordered Anxiety, depression, chronic pain --will review medications, discuss with ICU team and consultants F/E/N Fluids: NS @ 60mL/hr Electrolytes: replete as indicated Nutrition: NPO DVT prophylaxis: subq heparin Dispo: continues to require ICU level care. Full code. Visit type - Emergency Visit Emergency Visit: Yes ED Registration Date: 03/21/17 Care time: The patient presented to the Emergency Department on the above date and was hospitalized for further evaluation of their emergent condition. - New Patient This patient is new to me today: Yes Date on this admission: 03/21/17 - Critical Care Critical Care patient: Yes Total Critical Care Time (in minutes): 90 Critical Care Statement: The care of this patient involved high complexity decision making to prevent further life threatening deterioration of the patient 's condition and/or to evalute & treat vital organ system(s) failure or risk of failure.
[2017-03-21] MEDS ORDERED: INSULIN DETEMIR 100 UNITS/ML MDV SQ SCH (18:30)
[2017-03-21] MEDS: IPRATROPIUM BR 0.02% 0.5 MG/2.5 ML VIAL.NEB. NEB SCH ×2 (18:58→21:40)
--- NOTE | 2017-03-21 20:51 | PN ---
Progress Note, Physician Chief Complaint: "review of meds, possibility of substance use" - Current Medication List Current Medications: Active Medications Arformoterol Tartrate (Brovana (Restricted To Pulmonology/Resp) -) 1 amp NEB BID [facility] Last Admin: 03/21/17 10:32 Dose: 1 amp Chlorhexidine Gluconate (Hibiclens For Decolonization -) 1 applic TP HS [facility] Diltiazem HCl (Cardizem -) 60 mg PO Q6HPO [facility] Heparin Sodium (Porcine) (Heparin -) 5,000 unit SQ TID [facility] Last Admin: 03/21/17 15:00 Dose: 5,000 unit Sodium Chloride (Normal Saline -) 1,000 mls @ 60 mls/hr IV ASDIR [facility] Last Admin: 03/21/17 08:00 Dose: 60 mls/hr Famotidine/Sodium Chloride (Pepcid 20 Mg Premixed Ivpb -) 50 mls @ 100 mls/hr IVPB DAILY [facility] Last Admin: 03/21/17 10:13 Dose: 100 mls/hr Propofol (Diprivan -) 100 mls @ 1.67 mls/hr IVPB TITR EMMY; 5 MCG/KG/MIN PRN Reason: Protocol Last Titration: 03/21/17 10:30 Dose: 20 mcg/kg/min Piperacillin Sod/Tazobactam Sod (Zosyn 3.375gm Ivpb (Pre-Docked)) 50 mls @ 100 mls/hr IVPB Q8H-IV EMMY PRN Reason: Protocol Last Admin: 03/21/17 17:31 Dose: 100 mls/hr Insulin Aspart (Novolog Vial Sliding Scale -) 0 vial SQ ACHS [facility] PRN Reason: Protocol Last Admin: 03/21/17 17:28 Dose: 4 units Insulin Aspart (Novolog Vial Sliding Scale -) 1 vial SQ ACHS [facility] PRN Reason: Protocol Insulin Detemir (Levemir Vial) 5 units SQ BID@0700,2200 [facility] Ipratropium [place] (Atrovent 0.02% Nebulizer -) 1 amp NEB Q6H [facility] Stop: 03/28/17 08:32 Last Admin: 03/21/17 18:58 Dose: 1 amp Levothyroxine Sodium (Synthroid -) 25 mcg PO DAILY@0700 [facility] Methylprednisolone Sodium Succinate (Solu-Medrol -) 40 mg IVPB BID [facility] Last Admin: 03/21/17 10:12 Dose: 40 mg Metoprolol Tartrate (Lopressor -) 25 mg NGT TID [facility] Midazolam HCl (Versed -) 2 mg IVPUSH Q2H PRN PRN Reason: ANXIETY Mupirocin (Bactroban Ointment (For Decolonization) -) 1 applic NS BID [facility] Stop: 03/26/17 09:59 Last Admin: 03/21/17 11:15 Dose: 1 applic Potassium Chloride (Potassium Chloride Oral Liquid) 40 meq NGT Q6H [facility] Stop: 03/22/17 03:31 Last Admin: 03/21/17 16:00 Dose: 40 meq - Objective Vital Signs: Vital Signs Temperature 98.4 F 03/21/17 20:00 Pulse Rate 107 H 03/21/17 20:00 Respiratory Rate 16 03/21/17 20:00 Blood Pressure 112/78 03/21/17 20:00 O2 Sat by Pulse Oximetry (%) 98 03/21/17 10:00 Psychiatric: Yes: Other (Unable to assess due to sedatino, intubated,). No: WNL , Alert, Oriented, Agitated, Suicidal Ideation Labs: CBC, BMP 03/21/17 08:40 03/21/17 08:40 Problem List - Problems (1) Collapse of left lung Code(s): J98.11 - ATELECTASIS Assessment/Plan Unable to assess full mental status due to intubation, but responsive to touch. Reiewed home meds and current medications. Xanax 0.25 currently at low dose. gapapentin 300mg tid...doxepin 25 mg at night. Current psych meds are not extremely high. May continue to taper Xanax, continue gapapentin . Doxepin at night may be helpful at night for sedation but may be tapered due to current unstable physical condition. Currently on Prophonol drip for sedation. Appreciated an read last documentation , spoke to Ramya Lopez in ICU in care of patient also. Thank you for consult.
[2017-03-21] MEDS: CHLORHEXIDINE GLUCONATE 4% CLEANSER FOR DECOLONIZATION TP SCH (21:01)
[2017-03-21] MEDS: METOPROLOL TARTRATE 25 MG TABLET (FP) NGT SCH (22:14)
[2017-03-21] MEDS: INSULIN DETEMIR 100 UNITS/ML MDV SQ SCH (22:14)
[2017-03-22] MEDS: MIDAZOLAM HCL 2 MG/2 ML SINGLE DOSE VIAL IVPUSH PRN ×4 (00:19→07:32)
[2017-03-22] MEDS: dilTIAZem HCL 60 MG TABLET (FP) PO SCH ×3 (00:19→12:37)
[2017-03-22] MEDS: PIPERACILLIN/TAZOB 3.375 GM 50 ML IVPB SCH ×3 (02:30→19:09)
[2017-03-22] MEDS: POTASSIUM CHLORIDE ORAL LIQUID 20 MEQ/15 ML NGT SCH (02:31)
[2017-03-22] MEDS: IPRATROPIUM BR 0.02% 0.5 MG/2.5 ML VIAL.NEB. NEB SCH ×2 (03:35→10:54)
[2017-03-22] MEDS: INSULIN DETEMIR 100 UNITS/ML MDV SQ SCH ×2 (06:36→22:22)
[2017-03-22] MEDS: METOPROLOL TARTRATE 25 MG TABLET (FP) NGT SCH (06:36)
[2017-03-22] MEDS: INSULIN SLIDING SCALE (NOVOLOG) 1 VIAL SQ SCH ×4 (06:37→22:23)
[2017-03-22] MEDS: HEPARIN NA (PORCINE) 5,000 UNITS/ML 1ML VIAL SQ SCH ×3 (06:39→21:32)
[2017-03-22 06:58] LABS: BASOPHIL 0.1 % (0-2.0); MCH 26.4 pg (25.7-33.7); MEAN CELL VOLUME 82.5 fl (80-96); MEAN PLT VOLUME 8.2 fl (7.5-11.1); NEUTROPHILS 90.7 % (42.8-82.8); PLATELET COUNT 227 K/MM3 (134-434); RDW 18.6 % (11.6-15.6); WHITE BLOOD COUNT 6.5 K/mm3 (4.0-10.0)
[2017-03-22] MEDS ORDERED: LEVOTHYROXINE NA 25 MCG TABLET (FP) PO SCH (07:00)
[2017-03-22 08:00] LABS: ALBUMIN 2.4 g/dl (3.4-5.0); ANION GAP 5 (8-16); BILIRUBIN,TOTAL 0.4 mg/dL (0.2-1.0); CALCIUM 7.9 mg/dL (8.5-10.1); CO2 33 mmol/L (21-32); CREATININE 0.4 mg/dL (0.55-1.02); GLUCOSE,RANDOM 140 mg/dL (74-106); MAGNESIUM 2.1 mg/dL (1.8-2.4); PHOSPHOROUS 1.8 mg/dL (2.5-4.9); SGOT/AST 15 U/L (15-37); SGPT/ALT 77 U/L (12-78); TOT PROT 5.2 g/dl (6.4-8.2)
[2017-03-22 08:09] LABS: ALK PHOS 223 U/L (45-117); THYROID STIMULATING HORMONE 0.25 uIU/ml (0.358-3.74)
--- NOTE | 2017-03-22 09:51 | PN ---
Progress Note (short form) - Note Progress Note: Patient seen and examined in the ICU. Awake on AC mode of vent. No pressors. CXR : chronically increased markings Intake & Output 03/19/17 03/20/17 03/21/17 03/22/17 23:59 23:59 23:59 23:59 Intake Total 1126 928 Output Total 200 1550 800 Balance -200 -424 128 Weight 155 lb 122 lb 12 oz 123 lb 4 oz Last Vital Signs Temp Pulse Resp BP Pulse Ox 99.1 F 74 18 119/80 98 03/22/17 06:00 03/22/17 08:00 03/22/17 08:00 03/22/17 08:00 03/21/17 22:00 Active Medications Arformoterol Tartrate (Brovana (Restricted To Pulmonology/Resp) -) 1 amp NEB BID [facility] Last Admin: 03/21/17 22:00 Dose: 1 amp Chlorhexidine Gluconate (Hibiclens For Decolonization -) 1 applic TP HS [facility] Last Admin: 03/21/17 21:01 Dose: 1 applic Diltiazem HCl (Cardizem -) 60 mg PO Q6HPO [facility] Last Admin: 03/22/17 06:36 Dose: 60 mg Heparin Sodium (Porcine) (Heparin -) 5,000 unit SQ TID [facility] Last Admin: 03/22/17 06:39 Dose: 5,000 unit Sodium Chloride (Normal Saline -) 1,000 mls @ 60 mls/hr IV ASDIR [facility] Last Admin: 03/21/17 08:00 Dose: 60 mls/hr Famotidine/Sodium Chloride (Pepcid 20 Mg Premixed Ivpb -) 50 mls @ 100 mls/hr IVPB DAILY [facility] Last Admin: 03/21/17 10:13 Dose: 100 mls/hr Propofol (Diprivan -) 100 mls @ 1.67 mls/hr IVPB TITR [facility]; 5 MCG/KG/MIN PRN Reason: Protocol Last Titration: 03/21/17 23:00 Dose: 30 mcg/kg/min Piperacillin Sod/Tazobactam Sod (Zosyn 3.375gm Ivpb (Pre-Docked)) 50 mls @ 100 mls/hr IVPB Q8H-IV EMMY PRN Reason: Protocol Last Admin: 03/22/17 02:30 Dose: 100 mls/hr Insulin Aspart (Novolog Vial Sliding Scale -) 1 vial SQ ACHS [facility] PRN Reason: Protocol Last Admin: 03/22/17 06:37 Dose: 2 units Insulin Detemir (Levemir Vial) 5 units SQ BID@0700,2200 [facility] Last Admin: 03/22/17 06:36 Dose: 5 units Ipratropium [place] (Atrovent 0.02% Nebulizer -) 1 amp NEB Q6H [facility] Stop: 03/28/17 08:32 Last Admin: 03/22/17 03:35 Dose: 1 amp Levothyroxine Sodium (Synthroid -) 25 mcg PO DAILY@0700 [facility] Last Admin: 03/22/17 06:36 Dose: 25 mcg Methylprednisolone Sodium Succinate (Solu-Medrol -) 40 mg IVPB BID [facility] Last Admin: 03/21/17 21:01 Dose: 40 mg Metoprolol Tartrate (Lopressor -) 25 mg NGT TID [facility] Last Admin: 03/22/17 06:36 Dose: 25 mg Midazolam HCl (Versed -) 2 mg IVPUSH Q2H PRN PRN Reason: ANXIETY Last Admin: 03/22/17 07:32 Dose: 2 mg Mupirocin (Bactroban Ointment (For Decolonization) -) 1 applic NS BID [facility] Stop: 03/26/17 09:59 Last Admin: 03/21/17 21:01 Dose: 1 applic Constitutional: Yes: awake, Anxious, Vented Eyes: Yes: Conjunctiva Clear, EOM Intact HENT: Yes: Atraumatic, Normocephalic Neck: Yes: Supple, Trachea Midline Cardiovascular: Yes: Tachycardia Respiratory: Yes: Diminished, Dullness, Intubated, Mechanically Ventilated, Scattered Rhonchi. No: Accessory Muscle Use, Stridor, Wheezes Gastrointestinal: Yes: Normal Bowel Sounds, Soft ...Rectal Exam: Yes: Deferred Renal/: Yes: WNL Musculoskeletal: Yes: WNL Extremities: Yes: Shortened Edema: No Peripheral Pulses WNL: Yes Integumentary: Yes: WNL Laboratory Results - last 24 hr 03/21/17 03/21/17 03/21/17 08:40 08:40 08:40 WBC RBC Hgb Hct MCV MCHC RDW Plt Count MPV Neutrophils % Lymphocytes % Monocytes % Eosinophils % Basophils % Puncture Site ABG pH ABG pCO2 at Pt Temp ABG pO2 at Pt Temp ABG HCO3 ABG O2 Sat (Measured) ABG O2 Content ABG Base Excess Francis Test O2 Delivery Device Oxygen Flow Rate Vent Mode Vent Rate Mechanical Rate PEEP Pressure Support Vent Sodium 142 Potassium 2.5 L* D Chloride 97 L Carbon Dioxide 38 H D Anion Gap 7 L BUN 23 H Creatinine 0.5 L Creat Clearance w eGFR POC Glucometer Random Glucose 179 H Hemoglobin A1c % 6.3 H D Lactic Acid 2.720 H* Calcium 8.0 L Phosphorus 2.2 L D Magnesium 1.9 Total Bilirubin AST ALT Alkaline Phosphatase Total Protein Albumin TSH 03/21/17 03/21/17 03/21/17 11:30 12:12 16:23 WBC RBC Hgb Hct MCV MCHC RDW Plt Count MPV Neutrophils % Lymphocytes % Monocytes % Eosinophils % Basophils % Puncture Site Right radial ABG pH 7.45 ABG pCO2 at Pt Temp 49.4 H ABG pO2 at Pt Temp 97.3 D ABG HCO3 33.8 H ABG O2 Sat (Measured) 98.3 ABG O2 Content 11.3 L ABG Base Excess 9.1 H Francis Test Positive O2 Delivery Device Mec.vent Oxygen Flow Rate 40 Vent Mode A/c Vent Rate 14 Mechanical Rate Yes PEEP 8.0 Pressure Support Vent 350 Sodium Potassium Chloride Carbon Dioxide Anion Gap BUN Creatinine Creat Clearance w eGFR POC Glucometer 261.19169 226.95932 Random Glucose Hemoglobin A1c % Lactic Acid Calcium Phosphorus Magnesium Total Bilirubin AST ALT Alkaline Phosphatase Total Protein Albumin TSH 03/21/17 03/22/17 03/22/17 21:13 05:27 05:27 WBC 6.5 D RBC 2.70 L Hgb 7.1 L D Hct 22.3 L D MCV 82.5 MCHC 32.0 RDW 18.6 H Plt Count 227 MPV 8.2 Neutrophils % 90.7 H Lymphocytes % 6.6 L Monocytes % 2.6 L Eosinophils % 0.0 D Basophils % 0.1 Puncture Site ABG pH ABG pCO2 at Pt Temp ABG pO2 at Pt Temp ABG HCO3 ABG O2 Sat (Measured) ABG O2 Content ABG Base Excess Francis Test O2 Delivery Device Oxygen Flow Rate Vent Mode Vent Rate Mechanical Rate PEEP Pressure Support Vent Sodium 147 H Potassium 4.8 D Chloride 109 H D Carbon Dioxide 33 H Anion Gap 5 L BUN 16 D Creatinine 0.4 L Creat Clearance w eGFR > 60 POC Glucometer Random Glucose 140 H D Hemoglobin A1c % Lactic Acid 0.899 Calcium 7.9 L Phosphorus 1.8 L Magnesium 2.1 Total Bilirubin 0.4 AST 15 D ALT 77 D Alkaline Phosphatase 223 H D Total Protein 5.2 L Albumin 2.4 L TSH 0.25 L D 03/22/17 05:27 WBC RBC Hgb Hct MCV MCHC RDW Plt Count MPV Neutrophils % Lymphocytes % Monocytes % Eosinophils % Basophils % Puncture Site ABG pH ABG pCO2 at Pt Temp ABG pO2 at Pt Temp ABG HCO3 ABG O2 Sat (Measured) ABG O2 Content ABG Base Excess Francis Test O2 Delivery Device Oxygen Flow Rate Vent Mode Vent Rate Mechanical Rate PEEP Pressure Support Vent Sodium Potassium Chloride Carbon Dioxide Anion Gap BUN Creatinine Creat Clearance w eGFR POC Glucometer Random Glucose Hemoglobin A1c % Lactic Acid 0.878 Calcium Phosphorus Magnesium Total Bilirubin AST ALT Alkaline Phosphatase Total Protein Albumin TSH Problem List - Problems (1) Acute exacerbation of COPD with asthma Code(s): J44.1 - CHRONIC OBSTRUCTIVE PULMONARY DISEASE W (ACUTE) EXACERBATION J45.901 - UNSPECIFIED ASTHMA WITH (ACUTE) EXACERBATION (2) Acute hypercapnic respiratory failure Code(s): J96.02 - ACUTE RESPIRATORY FAILURE WITH HYPERCAPNIA (3) Anemia Code(s): D64.9 - ANEMIA, UNSPECIFIED (4) Collapse of left lung Code(s): J98.11 - ATELECTASIS (5) DVT prophylaxis Code(s): [id number] - (6) Pneumonia Code(s): J18.9 - PNEUMONIA, UNSPECIFIED ORGANISM Qualifiers: Pneumonia type: due to unspecified organism Laterality: right Lung location: upper lobe of lung Qualified Code(s): J18.1 - Lobar pneumonia, unspecified organism (7) Acute and chronic respiratory failure Code(s): J96.20 - ACUTE AND CHR RESP FAILURE, UNSP W HYPOXIA OR HYPERCAPNIA Qualifiers: Respiratory failure complication: hypoxia Qualified Code(s): J96.21 - Acute and chronic respiratory failure with hypoxia (8) Anxiety Code(s): F41.9 - ANXIETY DISORDER, UNSPECIFIED (9) Bipolar 2 disorder Code(s): F31.81 - BIPOLAR II DISORDER (10) Chronic back pain Code(s): M54.9 - DORSALGIA, UNSPECIFIED G89.29 - OTHER CHRONIC PAIN (11) Chronic respiratory failure with hypoxia Code(s): J96.11 - CHRONIC RESPIRATORY FAILURE WITH HYPOXIA (12) Depression with anxiety Code(s): F41.8 - OTHER SPECIFIED ANXIETY DISORDERS (13) HTN (hypertension) Code(s): I10 - ESSENTIAL (PRIMARY) HYPERTENSION Qualifiers: (14) Hyperlipidemia Code(s): E78.5 - HYPERLIPIDEMIA, UNSPECIFIED (15) Opioid dependence Code(s): F11.20 - OPIOID DEPENDENCE, UNCOMPLICATED (16) Paroxysmal atrial fibrillation Code(s): I48.0 - PAROXYSMAL ATRIAL FIBRILLATION (17) Diabetes mellitus, insulin dependent (IDDM), uncontrolled Code(s): E10.65 - TYPE 1 DIABETES MELLITUS WITH HYPERGLYCEMIA (18) GERD (gastroesophageal reflux disease) Code(s): K21.9 - GASTRO-ESOPHAGEAL REFLUX DISEASE WITHOUT ESOPHAGITIS (19) Mood disorder Code(s): F39 - UNSPECIFIED MOOD [AFFECTIVE] DISORDER (20) Neuropathy Code(s): G62.9 - POLYNEUROPATHY, UNSPECIFIED (21) Non compliance w medication regimen Code(s): Z91.14 - PATIENT'S OTHER NONCOMPLIANCE WITH MEDICATION REGIMEN (22) Total body pain Code(s): R52 - PAIN, UNSPECIFIED (23) Chronic abdominal pain Code(s): R10.9 - UNSPECIFIED ABDOMINAL PAIN G89.29 - OTHER CHRONIC PAIN Assessment/Plan Wean to extubate ABX per ID Medrol BD TX VTE prophylaxis Dr Castaneda Critical care time spent in reviewing chart, evaluating patient and formulating plan 36 min Problem List - Problems (1) Acute exacerbation of COPD with asthma Code(s): J44.1 - CHRONIC OBSTRUCTIVE PULMONARY DISEASE W (ACUTE) EXACERBATION J45.901 - UNSPECIFIED ASTHMA WITH (ACUTE) EXACERBATION (2) Acute hypercapnic respiratory failure Code(s): J96.02 - ACUTE RESPIRATORY FAILURE WITH HYPERCAPNIA (3) Anemia Code(s): D64.9 - ANEMIA, UNSPECIFIED (4) Collapse of left lung Code(s): J98.11 - ATELECTASIS (5) DVT prophylaxis Code(s): [id number] - (6) Pneumonia Code(s): J18.9 - PNEUMONIA, UNSPECIFIED ORGANISM Qualifiers: Pneumonia type: due to unspecified organism Laterality: right Lung location: upper lobe of lung Qualified Code(s): J18.1 - Lobar pneumonia, unspecified organism (7) Acute and chronic respiratory failure Code(s): J96.20 - ACUTE AND CHR RESP FAILURE, UNSP W HYPOXIA OR HYPERCAPNIA Qualifiers: Respiratory failure complication: hypoxia Qualified Code(s): J96.21 - Acute and chronic respiratory failure with hypoxia (8) Anxiety Code(s): F41.9 - ANXIETY DISORDER, UNSPECIFIED (9) Bipolar 2 disorder Code(s): F31.81 - BIPOLAR II DISORDER (10) Chronic back pain Code(s): M54.9 - DORSALGIA, UNSPECIFIED G89.29 - OTHER CHRONIC PAIN (11) Chronic respiratory failure with hypoxia Code(s): J96.11 - CHRONIC RESPIRATORY FAILURE WITH HYPOXIA (12) Depression with anxiety Code(s): F41.8 - OTHER SPECIFIED ANXIETY DISORDERS (13) HTN (hypertension) Code(s): I10 - ESSENTIAL (PRIMARY) HYPERTENSION Qualifiers: (14) Hyperlipidemia Code(s): E78.5 - HYPERLIPIDEMIA, UNSPECIFIED (15) Opioid dependence Code(s): F11.20 - OPIOID DEPENDENCE, UNCOMPLICATED (16) Paroxysmal atrial fibrillation Code(s): I48.0 - PAROXYSMAL ATRIAL FIBRILLATION (17) Diabetes mellitus, insulin dependent (IDDM), uncontrolled Code(s): E10.65 - TYPE 1 DIABETES MELLITUS WITH HYPERGLYCEMIA (18) GERD (gastroesophageal reflux disease) Code(s): K21.9 - GASTRO-ESOPHAGEAL REFLUX DISEASE WITHOUT ESOPHAGITIS (19) Mood disorder Code(s): F39 - UNSPECIFIED MOOD [AFFECTIVE] DISORDER (20) Neuropathy Code(s): G62.9 - POLYNEUROPATHY, UNSPECIFIED (21) Non compliance w medication regimen Code(s): Z91.14 - PATIENT'S OTHER NONCOMPLIANCE WITH MEDICATION REGIMEN (22) Total body pain Code(s): R52 - PAIN, UNSPECIFIED (23) Chronic abdominal pain Code(s): R10.9 - UNSPECIFIED ABDOMINAL PAIN G89.29 - OTHER CHRONIC PAIN
[2017-03-22] MEDS: ARFORMOTEROL TARTRATE 15 MCG/2 ML VIAL NEB SCH ×2 (10:00→21:47)
--- NOTE | 2017-03-22 10:24 | PN ---
Progress Note, Physician History of Present Illness: Just extubated Awake, alert Complains of feeling thirsty Mildly tachypneic at rest Afebrile WBC WNL Blood c/s no growth - Current Medication List Current Medications: Active Medications Arformoterol Tartrate (Brovana (Restricted To Pulmonology/Resp) -) 1 amp NEB BID [facility] Last Admin: 03/21/17 22:00 Dose: 1 amp Chlorhexidine Gluconate (Hibiclens For Decolonization -) 1 applic TP HS [facility] Last Admin: 03/21/17 21:01 Dose: 1 applic Diltiazem HCl (Cardizem -) 60 mg PO Q6HPO [facility] Last Admin: 03/22/17 06:36 Dose: 60 mg Heparin Sodium (Porcine) (Heparin -) 5,000 unit SQ TID [facility] Last Admin: 03/22/17 06:39 Dose: 5,000 unit Sodium Chloride (Normal Saline -) 1,000 mls @ 60 mls/hr IV ASDIR [facility] Last Admin: 03/21/17 08:00 Dose: 60 mls/hr Famotidine/Sodium Chloride (Pepcid 20 Mg Premixed Ivpb -) 50 mls @ 100 mls/hr IVPB DAILY [facility] Last Admin: 03/21/17 10:13 Dose: 100 mls/hr Piperacillin Sod/Tazobactam Sod (Zosyn 3.375gm Ivpb (Pre-Docked)) 50 mls @ 100 mls/hr IVPB Q8H-IV EMMY PRN Reason: Protocol Last Admin: 03/22/17 02:30 Dose: 100 mls/hr Insulin Aspart (Novolog Vial Sliding Scale -) 1 vial SQ ACHS [facility] PRN Reason: Protocol Last Admin: 03/22/17 06:37 Dose: 2 units Insulin Detemir (Levemir Vial) 5 units SQ BID@0700,2200 [facility] Last Admin: 03/22/17 06:36 Dose: 5 units Ipratropium [place] (Atrovent 0.02% Nebulizer -) 1 amp NEB Q6H [facility] Stop: 03/28/17 08:32 Last Admin: 03/22/17 03:35 Dose: 1 amp Levothyroxine Sodium (Synthroid -) 25 mcg PO DAILY@0700 [facility] Last Admin: 03/22/17 06:36 Dose: 25 mcg Methylprednisolone Sodium Succinate (Solu-Medrol -) 40 mg IVPB BID [facility] Last Admin: 03/21/17 21:01 Dose: 40 mg Metoprolol Tartrate (Lopressor -) 25 mg NGT TID [facility] Last Admin: 03/22/17 06:36 Dose: 25 mg Midazolam HCl (Versed -) 2 mg IVPUSH Q2H PRN PRN Reason: ANXIETY Last Admin: 03/22/17 07:32 Dose: 2 mg Mupirocin (Bactroban Ointment (For Decolonization) -) 1 applic NS BID [facility] Stop: 03/26/17 09:59 Last Admin: 03/21/17 21:01 Dose: 1 applic - Objective Vital Signs: Vital Signs Temperature 99.1 F 03/22/17 06:00 Pulse Rate 74 03/22/17 08:00 Respiratory Rate 18 03/22/17 08:00 Blood Pressure 119/80 03/22/17 08:00 O2 Sat by Pulse Oximetry (%) 98 03/21/17 22:00 Constitutional: Yes: No Distress Eyes: Yes: Conjunctiva Clear Cardiovascular: Yes: Regular Rate and Rhythm, S1, S2 Respiratory: Yes: Diminished Gastrointestinal: Yes: Normal Bowel Sounds, Soft, Abdomen, Obese. No: Tenderness Edema: No Labs: CBC, BMP 03/22/17 05:27 03/22/17 05:27 Assessment/Plan S/P respiratory failure Possible pneumonia COPD exacerbation Hx + sputum c/s Pseudomonas Continue empiric zosyn Await c/s
[2017-03-22] MEDS: FAMOTIDINE 20 MG/50 ML IVPB 50 ML IVPB SCH (10:58)
[2017-03-22] MEDS: methylPREDNISolone NA SUCC 40 MG/1 ML VIAL IVPB SCH ×3 (10:58→21:32)
[2017-03-22] MEDS: MUPIROCIN 2% TOPICAL OINTMENT FOR DECOLONIZATION NS SCH ×2 (11:00→21:32)
[2017-03-22] MEDS ORDERED: HEMOQUE TEST 1 EACH EACH ONE (11:19)
[2017-03-22] MEDS ORDERED: METOPROLOL TARTRATE 25 MG TABLET (FP) PO SCH (11:50)
[2017-03-22] MEDS ORDERED: ALPRAZolam 0.25 MG TABLET PO SCH ×2 (12:00→12:30)
[2017-03-22] MEDS ORDERED: ALBUTEROL SO4 2.5/IPRATROPIUM 0.5 INH SOL 3 ML VIAL.NEB. NEB SCH (12:00)
[2017-03-22] MEDS ORDERED: BUDESONIDE/FORMETEROL FUMARATE 160/4.5 mcg INHALER IH SCH (12:00)
[2017-03-22] MEDS ORDERED: IPRATROPIUM BR 0.02% 0.5 MG/2.5 ML VIAL.NEB. NEB ONE (12:10)
[2017-03-22] MEDS ORDERED: oxyCODONE HCL 10 MG SUSTAINED ACTING TABLET PO SCH (12:30)
[2017-03-22] MEDS ORDERED: dilTIAZem HCL 60 MG TABLET (FP) PO SCH (13:35)
--- NOTE | 2017-03-22 13:43 | PN ---
Physical Exam: SUBJECTIVE: Patient seen and examined at bedside. Mother present. Patient complaining of chronic back pain. OBJECTIVE: Vital Signs Period Temp Pulse Resp BP Sys/Dan Pulse Ox Last 24 Hr 98.4 F-99.3 F 74-120 14-24 104-176/60-98 98-99 GENERAL: The patient is awake, alert, and fully oriented. Anxious about not getting pain meds for her chronic problems. LUNGS: Scattered rhonchi, wheezing. No accessory muscle use. Able to speak in complete sentences. HEART: Regular rate and rhythm, S1, S2 without murmur, rub or gallop. ABDOMEN: Soft, nontender, nondistended EXTREMITIES: 2+ pulses, warm, well-perfused, no edema. NEUROLOGICAL: Cranial nerves II through XII grossly intact. Normal speech, gait not observed. Laboratory Results - last 24 hr 03/21/17 03/21/17 03/21/17 12:12 16:23 21:13 WBC RBC Hgb Hct MCV MCHC RDW Plt Count MPV Neutrophils % Lymphocytes % Monocytes % Eosinophils % Basophils % Sodium Potassium Chloride Carbon Dioxide Anion Gap BUN Creatinine Creat Clearance w eGFR POC Glucometer [phone] Random Glucose Lactic Acid 0.899 Calcium Phosphorus Magnesium Total Bilirubin AST ALT Alkaline Phosphatase Total Protein Albumin TSH 03/22/17 03/22/17 03/22/17 05:27 05:27 05:27 WBC 6.5 D RBC 2.70 L Hgb 7.1 L D Hct 22.3 L D MCV 82.5 MCHC 32.0 RDW 18.6 H Plt Count 227 MPV 8.2 Neutrophils % 90.7 H Lymphocytes % 6.6 L Monocytes % 2.6 L Eosinophils % 0.0 D Basophils % 0.1 Sodium 147 H Potassium 4.8 D Chloride 109 H D Carbon Dioxide 33 H Anion Gap 5 L BUN 16 D Creatinine 0.4 L Creat Clearance w eGFR > 60 POC Glucometer Random Glucose 140 H D Lactic Acid 0.878 Calcium 7.9 L Phosphorus 1.8 L Magnesium 2.1 Total Bilirubin 0.4 AST 15 D ALT 77 D Alkaline Phosphatase 223 H D Total Protein 5.2 L Albumin 2.4 L TSH 0.25 L D 03/22/17 03/22/17 06:35 11:30 WBC RBC Hgb Hct MCV MCHC RDW Plt Count MPV Neutrophils % Lymphocytes % Monocytes % Eosinophils % Basophils % Sodium Potassium Chloride Carbon Dioxide Anion Gap BUN Creatinine Creat Clearance w eGFR POC Glucometer [phone] Random Glucose Lactic Acid Calcium Phosphorus Magnesium Total Bilirubin AST ALT Alkaline Phosphatase Total Protein Albumin TSH Active Medications Generic Name Dose Route Start Last Admin Trade Name Freq PRN Reason Stop Dose Admin Alprazolam 0.25 mg 03/22/17 12:30 Xanax - PO Q8H EMMY Arformoterol Tartrate 1 amp 03/21/17 10:00 03/22/17 10:00 Brovana (Restricted To Pulmonology/Resp) - NEB 1 amp BID EMMY Administration Budesonide/Formoterol Fumarate 2 puff 03/22/17 12:00 Symbicort 160/4.5mcg - IH BID EMMY Chlorhexidine Gluconate 1 applic 03/21/17 22:00 03/21/17 21:01 Hibiclens For Decolonization - TP 1 applic HS EMMY Administration Diltiazem HCl 60 mg 03/22/17 00:00 03/22/17 12:37 Cardizem - PO 60 mg Q6HPO EMMY Administration Gabapentin 300 mg 03/22/17 14:00 Neurontin - PO TID EMMY Heparin Sodium (Porcine) 5,000 unit 03/21/17 14:00 03/22/17 06:39 Heparin - SQ 5,000 unit TID EMMY Administration Piperacillin Sod/Tazobactam Sod 50 mls @ 100 mls/hr 03/21/17 18:00 03/22/17 10: 58 Zosyn 3.375gm Ivpb (Pre-Docked) IVPB 100 mls/hr Q8H-IV EMMY Administration Protocol Insulin Aspart 1 vial 03/21/17 22:00 03/22/17 11:36 Novolog Vial Sliding Scale - SQ Not Given ACHS [facility] Protocol Insulin Detemir 5 units 03/21/17 22:00 03/22/17 06:36 Levemir Vial SQ 5 units BID@0700,2200 EMMY Administration Levothyroxine Sodium 25 mcg 03/22/17 07:00 03/22/17 06:36 Synthroid - PO 25 mcg DAILY@0700 EMMY Administration Metoprolol Tartrate 25 mg 03/22/17 11:50 Lopressor - PO TID EMMY Mupirocin 1 applic 03/21/17 10:00 03/21/17 21:01 Bactroban Ointment (For Decolonization) - NS 03/26/17 09:59 1 applic BID EMMY Administration Oxycodone HCl 10 mg 03/22/17 12:30 03/22/17 12:37 Oxycontin - PO 10 mg BID EMMY Administration Pancrelipase 3 cap 03/22/17 12:00 Eamon Turner 6,000 Units Capsule PO TIDCM EMMY Pantoprazole Sodium 40 mg 03/23/17 10:00 Protonix - PO DAILY EMMY Prednisone 40 mg 03/22/17 22:00 Deltasone - PO BID EMMY Roflumilast 500 mcg 03/22/17 12:00 Daliresp - PO DAILY [facility] ASSESSMENT/PLAN 51 year-old female, well-known to me from previous admission, with a PMH of HTN , paroxysmal afib, NIDDM, asthma/COPD O2 dependent, previous tracheostomy ( closed), uterine cancer, anxiety/depression/ bipolar disorder, chronic back pain and a dependency on narcotics. Admitted to [facility] 02/24-03/16/17 for COPD exacerbation and pseudomonas pneumonia. Hospital course was complicated by acute hypoxic and hypercapnic respiratory failure requiring two intubations. Patient was discharged on 03/16 to [facility]. Patient was found unresponsive and intubated by EMS. Acute on chronic hypercapnic and hypoxic respiratory failure, resolved --extubated this morning Health care associated pneumonia Possible aspiration pneumonia Acute on chronic COPD exacerbation --patchy RUL, RML, and RLL infiltrates on CT (left lung opacified at time of imaging) --continue Zosyn (day #2) --IV steroids, inhalers, nebulizers Opioid dependency Polypharmacy Anxiety, depression, chronic pain --strong suspicion that respiratory failure was due, at least in part, to polypharmacy; patient has tenuous respiratory function at baseline, and she takes a large amount of sedating medications: alprazolam, baclofen, benadryl, gabapentin, ambien, doxepin, and high doses of dilaudid for chronic back pain --patient demands narcotics and if she does not get it she is abusive to the staff; she exhibits drug-seeking behavior --have discussed this with Dr. Castaneda; plan is to detox patient --requested pain management consult (Dr. Escamilla), detox consult (Dr. De La Cruz) --appreciate psych input, will continue psych meds as outlined; increased xanax from BID to q8h to help with extreme anxiety Lactic acidosis, resolved Paroxysmal afib --has been in sinus rhythm this admission --review of EMR shows patient historically on cardizem for rate control and in July 2016 metoprolol was added; given COPD, will stop beta elzbieta and titrate up cardizem dose from 60mg q6h to 90mg q6h; goal to convert to long acting --[id number] score 3; not on anticoagulation secondary to a previous GI bleed on plavix (see Dr. Gomez's note 04/19/16) Hypertension --continue cardizem at higher dose IDDM --Levemir 5mg BID --Novolog sliding scale coverage Hypothroidism --TSH low, patient tachycardic; stop levothyroxine; will need repeat level in 6 weeks F/E/N Fluids: PO intake adequate Electrolytes: replete as indicated Nutrition: diabetic, low sodium DVT prophylaxis: subq heparin Dispo: continues to require ICU level care. Full code. Visit type - Emergency Visit Emergency Visit: Yes ED Registration Date: 03/21/17 Care time: The patient presented to the Emergency Department on the above date and was hospitalized for further evaluation of their emergent condition. - New Patient This patient is new to me today: No - Critical Care Critical Care patient: Yes Total Critical Care Time (in minutes): 45 Critical Care Statement: The care of this patient involved high complexity decision making to prevent further life threatening deterioration of the patient 's condition and/or to evalute & treat vital organ system(s) failure or risk of failure.
[2017-03-22] MEDS ORDERED: GABAPENTIN 300 MG CAPSULE (FP) PO SCH (14:00)
[2017-03-22] MEDS ORDERED: IPRATROPIUM BR 0.02% 0.5 MG/2.5 ML VIAL.NEB. NEB PRN (15:49)
[2017-03-22] MEDS: LIPASE/PROTEASE/AMYLASE 6,000 UNIT CAPSULE PO SCH ×3 (15:55→19:08)
[2017-03-22] MEDS: ROFLUMILAST 500 MCG TABLET PO SCH (15:59)
[2017-03-22] MEDS ORDERED: RAPID SEQUENCE INTUBATION KIT NR ONE (16:32)
[2017-03-22] MEDS ORDERED: PROPOFOL 100 ML ONE (16:54)
--- NOTE | 2017-03-22 17:11 | PN ---
Progress Note (short form) - Note Progress Note: Anesthesia Intubation note Called to bedside because the patient was experiencing respiratory distress. She was desaturating to the 70's on non rebreather. Her saturations woudl go up to 100 on AMBU. The patient was laid flat, induced with 100mg propofol and 50 mg rocuronium, MAC 3 blade, DL x 1, Grade 1 view, atraumatic intubation. vital signs remained stable during intubation, placement of ETT confirmed by auscultation and calorimetry.
--- NOTE | 2017-03-22 17:15 | PN ---
Physical Exam: SUBJECTIVE: Patient seen and examined. Reintubated. Patient became hypoxic, desatted to 50's. Was placed on NRB, came back up to 100% and then desatted to 70's. Complained of SOB, became pale/grayish color, and briefly unresponsive. Decision was made to intubate. OBJECTIVE: Vital Signs Period Temp Pulse Resp BP Sys/Dan Pulse Ox Last 24 Hr 98.4 F-99.3 F 74-110 14-24 104-176/70-98 98-99 GENERAL: Intubated, sedated. Lungs: mechanical breath sounds Exam otherwise unchanged from earlier today Vent settings per ICU team ABG pending CXR pending Place OG tube Convert PO meds back to IV Visit type - Emergency Visit Emergency Visit: Yes ED Registration Date: 03/21/17 Care time: The patient presented to the Emergency Department on the above date and was hospitalized for further evaluation of their emergent condition. - New Patient This patient is new to me today: No - Critical Care Critical Care patient: Yes Total Critical Care Time (in minutes): 15
[2017-03-22] MEDS ORDERED: ROCURONIUM BROMIDE 50 MG/5 ML VIAL IVPUSH ONE (17:35)
[2017-03-22] MEDS ORDERED: PROPOFOL 200 MG/20 ML VIAL IVPUSH ONE (17:40)
[2017-03-22] MEDS: PROPOFOL 100 ML IVPB SCH (17:45)
[2017-03-22] MEDS: DILTIAZEM 60 MG, DILTIAZEM 30 MG PO SCH (19:08)
[2017-03-22 19:39] LABS: ARTERIAL BLOOD GAS BASE EXCESS 2.3 meq/l (-2-2); ARTERIAL BLOOD GAS HCO3 25.7 meq/L (22-26); ARTERIAL BLOOD GAS pH 7.46 (7.35-7.45)
[2017-03-22 19:42] LABS: ALLENS TEST POSITIVE; ART PUNCT SITE RIGHT RADIAL; LPM/O2% 100%; MECH. VENT. YES; PT. ON O2? YES; TYPE OF O2 MEC.VENT
[2017-03-22 19:43] LABS: VENT RATE 14; VT/PRESS 350
[2017-03-22] MEDS: CHLORHEXIDINE GLUCONATE 4% CLEANSER FOR DECOLONIZATION TP SCH (21:32)
[2017-03-22] MEDS ORDERED: predniSONE 20 MG TABLET (UD) PO SCH (22:00)
[2017-03-23] MEDS: DILTIAZEM 60 MG, DILTIAZEM 30 MG PO SCH ×5 (02:30→23:19)
[2017-03-23] MEDS: PIPERACILLIN/TAZOB 3.375 GM 50 ML IVPB SCH ×3 (02:45→18:17)
[2017-03-23] MEDS ORDERED: PROPOFOL 100 ML ONE (04:48)
[2017-03-23 06:13] LABS: MCH 26.3 pg (25.7-33.7); MEAN CELL VOLUME 82.2 fl (80-96); MEAN PLT VOLUME 8.7 fl (7.5-11.1); PLATELET COUNT 220 K/MM3 (134-434); RDW 18.6 % (11.6-15.6); WHITE BLOOD COUNT 4.3 K/mm3 (4.0-10.0)
[2017-03-23] MEDS: INSULIN DETEMIR 100 UNITS/ML MDV SQ SCH ×2 (06:33→21:36)
[2017-03-23] MEDS: INSULIN SLIDING SCALE (NOVOLOG) 1 VIAL SQ SCH ×4 (06:33→21:59)
[2017-03-23] MEDS: HEPARIN NA (PORCINE) 5,000 UNITS/ML 1ML VIAL SQ SCH ×3 (06:33→21:32)
[2017-03-23 06:56] LABS: ALBUMIN 2.3 g/dl (3.4-5.0); ALK PHOS 204 U/L (45-117); ANION GAP 10 (8-16); BILIRUBIN,TOTAL 0.4 mg/dL (0.2-1.0); CO2 29 mmol/L (21-32); COCKROFT - GAULT 202.1215; CREATININE 0.3 mg/dL (0.55-1.02); GLUCOSE,RANDOM 109 mg/dL (74-106); MAGNESIUM 2.4 mg/dL (1.8-2.4); PHOSPHOROUS 3.7 mg/dL (2.5-4.9); SGOT/AST 11 U/L (15-37); SGPT/ALT 66 U/L (12-78); TOT PROT 4.9 g/dl (6.4-8.2)
[2017-03-23] MEDS: PROPOFOL 100 ML IVPB SCH (09:29)
[2017-03-23] MEDS: LIPASE/PROTEASE/AMYLASE 6,000 UNIT CAPSULE PO SCH ×3 (09:30→17:02)
[2017-03-23] MEDS: ARFORMOTEROL TARTRATE 15 MCG/2 ML VIAL NEB SCH ×2 (09:59→21:33)
[2017-03-23] MEDS ORDERED: PANTOPRAZOLE 40 MG TABLET (FP) PO SCH (10:00)
--- NOTE | 2017-03-23 10:29 | PN ---
Progress Note (short form) - Note Progress Note: ID Reintubated Alert NAD Selected Entries 03/23/17 06:00 Temperature 98.7 F Pulse Rate 62 Respiratory 19 Rate Blood Pressure 119/81 Microbiology 03/21/17 07:30 Urine - Urine Titus Urine Culture - Final 03/21/17 00:40 Blood - Peripheral Venous Blood Culture - Preliminary NO GROWTH OBTAINED AFTER 48 HOURS, INCUBATION TO CONTINUE FOR 3 DAYS. 03/21/17 00:40 Blood - Peripheral Venous Blood Culture - Preliminary NO GROWTH OBTAINED AFTER 48 HOURS, INCUBATION TO CONTINUE FOR 3 DAYS. Laboratory Tests 03/23/17 03/23/17 05:50 05:50 WBC 4.3 D Hgb 6.6 L* Hct 20.7 L Plt Count 220 BUN 21 H D Creatinine 0.3 L D Assessment Acute recurrent respiratory failure with "CT pneumonia infiltrates" Plan Short cource Zosyn 5 days here Check sputum culture Would benefit by trach Discussed with Pulmonary Martha WRIGHT Problem List - Problems (1) Acute exacerbation of COPD with asthma Code(s): J44.1 - CHRONIC OBSTRUCTIVE PULMONARY DISEASE W (ACUTE) EXACERBATION J45.901 - UNSPECIFIED ASTHMA WITH (ACUTE) EXACERBATION (2) Acute hypercapnic respiratory failure Code(s): J96.02 - ACUTE RESPIRATORY FAILURE WITH HYPERCAPNIA (3) Pneumonia Code(s): J18.9 - PNEUMONIA, UNSPECIFIED ORGANISM Qualifiers: Pneumonia type: due to unspecified organism Laterality: right Lung location: upper lobe of lung Qualified Code(s): J18.1 - Lobar pneumonia, unspecified organism
--- NOTE | 2017-03-23 10:29 | PN ---
Physical Exam: SUBJECTIVE: Patient seen and examined. No acute complaints on exam. Would like something to eat; however, pt is intubated. Advised unable to feed while tube in. OBJECTIVE: Vital Signs - 24 hr 3 03/22/17 03/22/17 03/22/17 12:00 14:00 15:50 Temperature 98.8 F Pulse Rate 108 H 86 110 H Respiratory 24 24 16 Rate Blood Pressure 176/98 127/76 144/90 O2 Sat by Pulse 99 Oximetry (%) 3 03/22/17 03/22/17 03/22/17 16:30 17:03 18:00 Temperature Pulse Rate 124 H 70 Respiratory 17 14 18 Rate Blood Pressure 134/73 117/79 O2 Sat by Pulse Oximetry (%) 03/22/17 03/22/17 03/22/17 19:00 19:10 20:00 Temperature Pulse Rate 85 Respiratory 15 17 Rate Blood Pressure 127/87 O2 Sat by Pulse 100 100 Oximetry (%) 3 03/22/17 03/22/17 03/22/17 21:46 22:00 23:50 Temperature 98.6 F Pulse Rate 66 Respiratory 14 17 14 Rate Blood Pressure 106/71 O2 Sat by Pulse Oximetry (%) 3 03/23/17 03/23/17 03/23/17 02:00 03:00 04:00 Temperature 98.4 F Pulse Rate 56 L 64 Respiratory 16 15 17 Rate Blood Pressure 118/81 114/81 O2 Sat by Pulse Oximetry (%) 3 03/23/17 03/23/17 03/23/17 06:00 08:00 09:30 Temperature 98.7 F Pulse Rate 62 65 63 Respiratory 19 19 16 Rate Blood Pressure 119/81 128/78 O2 Sat by Pulse 100 100 Oximetry (%) 3 03/23/17 10:00 Temperature 97.9 F Pulse Rate 79 Respiratory 22 Rate Blood Pressure 123/86 O2 Sat by Pulse Oximetry (%) GENERAL: The patient is awake, alert, and fully oriented, in no acute distress. HEAD: Normal with no signs of trauma. EYES: PERRL, extraocular movements intact, sclera anicteric, conjunctiva clear. No ptosis. ENT: Ears normal, nares patent, oropharynx clear without exudates, moist mucous membranes. NECK: Trachea midline, full range of motion, supple. LUNGS: Breath sounds equal, + inspiratory rhonchi bilaterally, no wheezing, no accessory muscle use. HEART: Regular rate and rhythm, S1, S2 without murmur, rub or gallop. ABDOMEN: Soft, nontender, nondistended, normoactive bowel sounds, no guarding, no rebound, no hepatosplenomegaly, no masses. EXTREMITIES: 2+ pulses, warm, well-perfused, no edema. NEUROLOGICAL: Cranial nerves II through XII grossly intact. Normal speech, gait not observed. PSYCH: Normal mood, normal affect. SKIN: Warm, dry, normal turgor, no rashes or lesions noted Laboratory Results - last 24 hr 3 03/22/17 03/22/17 03/22/17 06:35 11:30 18:41 WBC RBC Hgb Hct MCV MCHC RDW Plt Count MPV Puncture Site ABG pH ABG pCO2 at Pt Temp ABG pO2 at Pt Temp ABG HCO3 ABG O2 Sat (Measured) ABG O2 Content ABG Base Excess Francis Test O2 Delivery Device Oxygen Flow Rate Vent Mode Vent Rate Mechanical Rate PEEP Pressure Support Vent Sodium Potassium Chloride Carbon Dioxide Anion Gap BUN Creatinine Creat Clearance w eGFR POC Glucometer 161.98616 115.10361 295.29708 Random Glucose Calcium Phosphorus Magnesium Total Bilirubin AST ALT Alkaline Phosphatase Total Protein Albumin Blood Type Antibody Screen Crossmatch 3 03/22/17 03/22/17 03/23/17 19:00 22:00 05:50 WBC 4.3 D RBC 2.52 L Hgb 6.6 L* Hct 20.7 L MCV 82.2 MCHC 32.0 RDW 18.6 H Plt Count 220 MPV 8.7 Puncture Site Right radial ABG pH 7.46 H ABG pCO2 at Pt Temp 36.3 D ABG pO2 at Pt Temp 344.0 H* ABG HCO3 25.7 ABG O2 Sat (Measured) 100.0 H* ABG O2 Content 9.7 L* ABG Base Excess 2.3 H Francis Test Positive O2 Delivery Device Mec.vent Oxygen Flow Rate 100% Vent Mode A/c Vent Rate 14 Mechanical Rate Yes PEEP 5.0 Pressure Support Vent 350 Sodium Potassium Chloride Carbon Dioxide Anion Gap BUN Creatinine Creat Clearance w eGFR POC Glucometer 193.21266 Random Glucose Calcium Phosphorus Magnesium Total Bilirubin AST ALT Alkaline Phosphatase Total Protein Albumin Blood Type Antibody Screen Crossmatch 3 03/23/17 03/23/17 05:50 07:45 WBC RBC Hgb Hct MCV MCHC RDW Plt Count MPV Puncture Site ABG pH ABG pCO2 at Pt Temp ABG pO2 at Pt Temp ABG HCO3 ABG O2 Sat (Measured) ABG O2 Content ABG Base Excess Francis Test O2 Delivery Device Oxygen Flow Rate Vent Mode Vent Rate Mechanical Rate PEEP Pressure Support Vent Sodium 144 Potassium 4.0 Chloride 105 Carbon Dioxide 29 Anion Gap 10 BUN 21 H D Creatinine 0.3 L D Creat Clearance w eGFR > 60 POC Glucometer Random Glucose 109 H D Calcium 8.0 L Phosphorus 3.7 D Magnesium 2.4 Total Bilirubin 0.4 AST 11 L D ALT 66 Alkaline Phosphatase 204 H Total Protein 4.9 L Albumin 2.3 L Blood Type A POSITIVE Antibody Screen Negative Crossmatch See Detail Active Medications 3 Generic Name Dose Route Start Last Admin Trade Name Freq PRN Reason Stop Dose Admin Arformoterol Tartrate 1 amp 03/21/17 10:00 03/23/17 09:59 Brovana (Restricted To Pulmonology/Resp) - NEB 1 amp BID EMMY Administration Chlorhexidine Gluconate 1 applic 03/21/17 22:00 03/22/17 21:32 Hibiclens For Decolonization - TP 1 applic HS EMMY Administration Diltiazem HCl 60 mg/ Diltiazem 90 mg 03/22/17 18:00 03/23/17 06:33 HCl 30 mg PO Not Given Q6HPO EMMY Heparin Sodium (Porcine) 5,000 unit 03/21/17 14:00 03/23/17 06:33 Heparin - SQ 5,000 unit TID EMMY Administration Piperacillin Sod/Tazobactam Sod 50 mls @ 100 mls/hr 03/21/17 18:00 03/23/17 02: 45 Zosyn 3.375gm Ivpb (Pre-Docked) IVPB 100 mls/hr Q8H-IV EMMY Administration Protocol Propofol 100 mls @ 16.772 mls/hr 03/22/17 17:45 03/23/17 09:29 Diprivan - IVPB 15.094 mls/hr TITR EMMY Administration Protocol 50 MCG/KG/MIN Insulin Aspart 1 vial 03/21/17 22:00 03/23/17 06:33 Novolog Vial Sliding Scale - SQ Not Given ACHS [facility] Protocol Insulin Detemir 5 units 03/21/17 22:00 05/01/17 06:33 Levemir Vial SQ 5 units BID@0700,2200 EMMY Administration Ipratropium [place] 1 amp 03/22/17 15:49 03/22/17 15:40 Atrovent 0.02% Nebulizer - NEB 03/29/17 15:49 1 amp Q6H PRN Administration DYSPEPSIA Methylprednisolone Sodium Succinate 40 mg 03/22/17 17:30 03/22/17 21:32 Solu-Medrol - IVPB 40 mg BID EMMY Administration Mupirocin 1 applic 03/21/17 10:00 03/22/17 21:32 Bactroban Ointment (For Decolonization) - NS 03/26/17 09:59 1 applic BID EMMY Administration Pancrelipase 3 cap 03/22/17 12:00 03/23/17 09:30 Creon 6,000 Units Capsule PO Not Given TIDCM EMMY Roflumilast 500 mcg 03/22/17 12:00 03/22/17 15:59 Daliresp - PO 500 mcg DAILY EMMY Administration ASSESSMENT/PLAN: 51 year-old female, well-known to facility from previous admissions, with a PMH of HTN, paroxysmal afib, NIDDM, asthma/COPD O2 dependent, previous tracheostomy (closed), uterine cancer, anxiety/depression/ bipolar disorder, chronic back pain and a dependency on narcotics. Admitted to [facility] 02/24-03/16/17 for COPD exacerbation and pseudomonas pneumonia. Hospital course was complicated by acute hypoxic and hypercapnic respiratory failure requiring two intubations. Patient was discharged on 03/16 to [facility]. Patient was found unresponsive and intubated by EMS. Acute on chronic hypercapnic and hypoxic respiratory failure, resolved - reintubated yesterday afternoon due to acute onset hypoxia - consider tracheostomy - cont on vent for now, weaning trials as per pul Health care associated pneumonia Possible aspiration pneumonia Acute on chronic COPD exacerbation - patchy RUL, RML, and RLL infiltrates on CT (left lung opacified at time of CT) - continue Zosyn (day #3) - IV steroids, inhalers, nebulizers Anemia - Hgb 6.6 today, 1uPRBC ordered but only [address], attempted to look for another, none visualized. ICU team to f/u re: line placement. Opioid dependency Polypharmacy Anxiety, depression, chronic pain - suspicion that respiratory failure was due, at least in part, to polypharmacy; patient has tenuous respiratory function at baseline, and she takes a large amount of sedating medications: alprazolam, baclofen, benadryl, gabapentin, ambien, doxepin, and high doses of dilaudid for chronic back pain; however off baclofen, ambien, morphine and doxepin at time of most recent extubation. On 03/22 she received oxycontin 10mg @ 1237, gabapentin @ 4pm, and xanax @ 1210pm. Reintubated around 5pm - patient demands narcotics and if she does not get it she is abusive to the staff; she exhibits drug-seeking behavior - was discussed with Dr. Castaneda; plan yesterday was to detox patient, but given repeat intubation plan on hold. - requested pain management consult (Dr. Escamilla), detox consult (Dr. De La Cruz), still pending - appreciate psych input, will continue psych meds as outlined except xanax dc yesterday after intubation, unable to take po Lactic acidosis, resolved Paroxysmal afib - has been in sinus rhythm this admission - review of EMR shows patient historically on cardizem for rate control and in July 2016 metoprolol was added; given COPD, will stop beta elzbieta and titrate up cardizem dose from 60mg q6h to 90mg q6h; goal to convert to long acting - [id number] score 3; not on anticoagulation secondary to a previous GI bleed on plavix (see Dr. Gomez's note 04/19/16) Hypertension - continue cardizem at higher dose IDDM - Levemir 5mg BID, BGM fair on same - Novolog sliding scale coverage Hypothroidism - TSH low, patient was tachycardic; levothyroxine DC; will need repeat level in 6 weeks F/E/N Fluids: Electrolytes: replete as indicated Nutrition: diabetic, low sodium DVT prophylaxis: subq heparin Dispo: continues to require ICU level care. Full code. Visit type - Emergency Visit Emergency Visit: Yes ED Registration Date: 03/21/17 Care time: The patient presented to the Emergency Department on the above date and was hospitalized for further evaluation of their emergent condition. - New Patient This patient is new to me today: Yes Date on this admission: 03/23/17 - Critical Care Critical Care patient: Yes Total Critical Care Time (in minutes): 45 Critical Care Statement: The care of this patient involved high complexity decision making to prevent further life threatening deterioration of the patient 's condition and/or to evalute & treat vital organ system(s) failure or risk of failure.
[2017-03-23] MEDS ORDERED: dilTIAZem HCL 30 MG TABLET (FP) ONE ×3 (10:55→22:20)
[2017-03-23] MEDS ORDERED: PT OWN MED DRAWER 7, Y5N ONE (10:55)
[2017-03-23] MEDS ORDERED: dilTIAZem HCL 60 MG TABLET (FP) ONE ×3 (10:55→22:20)
[2017-03-23] MEDS: ROFLUMILAST 500 MCG TABLET PO SCH (10:58)
[2017-03-23] MEDS: methylPREDNISolone NA SUCC 40 MG/1 ML VIAL IVPB SCH ×2 (11:00→21:32)
[2017-03-23] MEDS: MUPIROCIN 2% TOPICAL OINTMENT FOR DECOLONIZATION NS SCH ×2 (14:43→21:33)
[2017-03-23] MEDS ORDERED: IPRATROPIUM BR 0.02% 0.5 MG/2.5 ML VIAL.NEB. NEB PRN (14:45)
[2017-03-23] MEDS ORDERED: FUROSEMIDE 40 MG/4 ML INJECTABLE VIAL IVPUSH ONE (14:45)
[2017-03-23] MEDS ORDERED: ALBUTEROL SO4 2.5/IPRATROPIUM 0.5 INH SOL 3 ML VIAL.NEB. NEB SCH (14:45)
--- NOTE | 2017-03-23 14:53 | PN ---
Physical Exam: SUBJECTIVE: Patient seen and examined Patient on ventilator support, awake and oriented, communicated with writing. Patient was taken to cpap. Patient tolerated it well. Patient extubated. Post extubation patient started demanding pain meds. patient complaints of chronic pain in her back. States she feels fine on venturi mask, spo2 100%. states she will let us know if she feel tired or has any difficulty in breathing. will give her one unit blood with lasxi propofol stopped OBJECTIVE: Vital Signs Period Temp Pulse Resp BP Sys/Dan Pulse Ox Last 24 Hr 97.8 F-98.7 F 56-124 14-22 106-144/71-90 100-100 GENERAL: conscious and oriented HEAD: Normal with no signs of trauma. EYES: PERRL, ENT: Ears normal, nares patent, moist mucous membranes. NECK: Trachea midline, full range of motion, supple. LUNGS: Breath sounds equal, b/l rales present. HEART: Regular rate, sis2 normal . ABDOMEN: Soft, nontender, nondistended, normoactive bowel sounds, no guarding, no rebound, EXTREMITIES: 2+ pulses, warm, no edema. SKIN: Warm, dry, Laboratory Results - last 24 hr 03/22/17 03/22/17 03/22/17 18:41 19:00 22:00 WBC RBC Hgb Hct MCV MCHC RDW Plt Count MPV Puncture Site Right radial ABG pH 7.46 H ABG pCO2 at Pt Temp 36.3 D ABG pO2 at Pt Temp 344.0 H* ABG HCO3 25.7 ABG O2 Sat (Measured) 100.0 H* ABG O2 Content 9.7 L* ABG Base Excess 2.3 H Francis Test Positive O2 Delivery Device Mec.vent Oxygen Flow Rate 100% Vent Mode A/c Vent Rate 14 Mechanical Rate Yes PEEP 5.0 Pressure Support Vent 350 Sodium Potassium Chloride Carbon Dioxide Anion Gap BUN Creatinine Creat Clearance w eGFR POC Glucometer [phone] Random Glucose Calcium Phosphorus Magnesium Total Bilirubin AST ALT Alkaline Phosphatase Total Protein Albumin Blood Type Antibody Screen Crossmatch 03/23/17 03/23/17 03/23/17 05:50 05:50 06:29 WBC 4.3 D RBC 2.52 L Hgb 6.6 L* Hct 20.7 L MCV 82.2 MCHC 32.0 RDW 18.6 H Plt Count 220 MPV 8.7 Puncture Site ABG pH ABG pCO2 at Pt Temp ABG pO2 at Pt Temp ABG HCO3 ABG O2 Sat (Measured) ABG O2 Content ABG Base Excess Francis Test O2 Delivery Device Oxygen Flow Rate Vent Mode Vent Rate Mechanical Rate PEEP Pressure Support Vent Sodium 144 Potassium 4.0 Chloride 105 Carbon Dioxide 29 Anion Gap 10 BUN 21 H D Creatinine 0.3 L D Creat Clearance w eGFR > 60 POC Glucometer 135.72659 Random Glucose 109 H D Calcium 8.0 L Phosphorus 3.7 D Magnesium 2.4 Total Bilirubin 0.4 AST 11 L D ALT 66 Alkaline Phosphatase 204 H Total Protein 4.9 L Albumin 2.3 L Blood Type Antibody Screen Crossmatch 03/23/17 03/23/17 07:45 12:30 WBC RBC Hgb Hct MCV MCHC RDW Plt Count MPV Puncture Site ABG pH ABG pCO2 at Pt Temp ABG pO2 at Pt Temp ABG HCO3 ABG O2 Sat (Measured) ABG O2 Content ABG Base Excess Francis Test O2 Delivery Device Oxygen Flow Rate Vent Mode Vent Rate Mechanical Rate PEEP Pressure Support Vent Sodium Potassium Chloride Carbon Dioxide Anion Gap BUN Creatinine Creat Clearance w eGFR POC Glucometer 113.26320 Random Glucose Calcium Phosphorus Magnesium Total Bilirubin AST ALT Alkaline Phosphatase Total Protein Albumin Blood Type A POSITIVE Antibody Screen Negative Crossmatch See Detail Active Medications Generic Name Dose Route Start Last Admin Trade Name Freq PRN Reason Stop Dose Admin Arformoterol Tartrate 1 amp 03/21/17 10:00 03/23/17 09:59 Brovana (Restricted To Pulmonology/Resp) - NEB 1 amp BID EMMY Administration Chlorhexidine Gluconate 1 applic 03/21/17 22:00 03/22/17 21:32 Hibiclens For Decolonization - TP 1 applic HS EMMY Administration Diltiazem HCl 60 mg/ Diltiazem 90 mg 03/22/17 18:00 03/23/17 11:21 HCl 30 mg PO 90 mg Q6HPO EMMY Administration Heparin Sodium (Porcine) 5,000 unit 03/21/17 14:00 03/23/17 14:42 Heparin - SQ 5,000 unit TID EMMY Administration Hydromorphone HCl 4 mg 03/23/17 16:00 Dilaudid - PO Q6H PRN PAIN Piperacillin Sod/Tazobactam Sod 50 mls @ 100 mls/hr 03/21/17 18:00 03/23/17 10: 56 Zosyn 3.375gm Ivpb (Pre-Docked) IVPB 100 mls/hr Q8H-IV EMMY Administration Protocol Propofol 100 mls @ 16.772 mls/hr 03/22/17 17:45 03/23/17 09:29 Diprivan - IVPB 15.094 mls/hr TITR EMMY Administration Protocol 50 MCG/KG/MIN Insulin Aspart 1 vial 03/21/17 22:00 03/23/17 12:37 Novolog Vial Sliding Scale - SQ Not Given ACHS EMMY Protocol Insulin Detemir 5 units 03/21/17 22:00 03/23/17 06:33 Levemir Vial SQ 5 units BID@0700,2200 EMMY Administration Ipratropium [place] 1 amp 03/23/17 14:45 Atrovent 0.02% Nebulizer - NEB Q6H PRN WHEEZING Methylprednisolone Sodium Succinate 40 mg 03/22/17 17:30 03/23/17 11:00 Solu-Medrol - IVPB 40 mg BID EMMY Administration Mupirocin 1 applic 03/21/17 10:00 03/23/17 14:43 Bactroban Ointment (For Decolonization) - NS 03/26/17 09:59 1 applic BID EMMY Administration Pancrelipase 3 cap 03/22/17 12:00 03/23/17 11:22 Crenaida Turner 6,000 Units Capsule PO 3 cap TIDCM EMMY Administration Roflumilast 500 mcg 03/22/17 12:00 03/23/17 10:58 Daliresp - PO 500 mcg DAILY EMMY Administration ASSESSMENT/PLAN: Acute on chronic hypercapnic and hypoxic respiratory failure, could be from copd excerbration extubated. Maintaining a saturation on ventury spo2 100% keep spo2 > 90 monitor vitals BIPAP prn i/e 16/6, fio2 40, rr 16 continue with nebulizer continue with iv steroid Opioid dependency on dilaudid 4mg po q6h prn for back pain monitor for respiratory depression Lactic acidosis, resolved Paroxysmal afib hR 71 on cardiazem 90mg po q6h not on ac due to risk of bleeding and anemia Hypertension continue cardizem IDDM Levemir 5mg BID Novolog sliding scale coverage blood glucose monitoring Hypothroidism TSH low; stop levothyroxine; will need repeat level in 6 weeks F/E/N Fluids: orally allowed Electrolytes: replete as indicated Nutrition: clear liquid DVT prophylaxis: sq heparin Dispo: continues to require ICU level care. Full code. Visit type - Emergency Visit Emergency Visit: Yes ED Registration Date: 03/21/17 Care time: The patient presented to the Emergency Department on the above date and was hospitalized for further evaluation of their emergent condition. - New Patient This patient is new to me today: Yes Date on this admission: 03/23/17 - Critical Care Critical Care patient: Yes Total Critical Care Time (in minutes): 45 Critical Care Statement: The care of this patient involved high complexity decision making to prevent further life threatening deterioration of the patient 's condition and/or to evalute & treat vital organ system(s) failure or risk of failure.
--- NOTE | 2017-03-23 14:56 | PN ---
Teaching Attending Note Name of Resident: Nabor Weldon ATTENDING PHYSICIAN STATEMENT I saw and evaluated the patient. I reviewed the resident's note and discussed the case with the resident. I agree with the resident's findings and plan as documented. SUBJECTIVE: Pt seen and examined in the ICU. Remained intubated, awake on propofol gtt. c/o back pain. Tolerating CPAP/PS trials. OBJECTIVE: Last Vital Signs Temp Pulse Resp BP Pulse Ox 97.8 F 92 H 21 121/79 100 03/23/17 14:00 03/23/17 14:39 03/23/17 14:00 03/23/17 14:00 03/23/17 14:39 Intake & Output 03/20/17 03/21/17 03/22/17 03/23/17 23:59 23:59 23:59 23:59 Intake Total 1126 1938 182 Output Total 200 1550 1300 800 Balance -200 -424 638 -618 Weight 155 lb 122 lb 12 oz 123 lb 4 oz 124 lb 7 oz Gen: intubated, awake, breathing nonlabored Heart: RRR Lung: scattered rhonchi Abd: soft, nontender Ext: no edema CBC, BMP 03/23/17 05:50 03/23/17 05:50 Active Medications Arformoterol Tartrate (Brovana (Restricted To Pulmonology/Resp) -) 1 amp NEB BID [facility] Last Admin: 03/23/17 09:59 Dose: 1 amp Chlorhexidine Gluconate (Hibiclens For Decolonization -) 1 applic TP HS [facility] Last Admin: 03/22/17 21:32 Dose: 1 applic Diltiazem HCl 60 mg/ Diltiazem (HCl 30 mg) 90 mg PO Q6HPO [facility] Last Admin: 03/23/17 11:21 Dose: 90 mg Heparin Sodium (Porcine) (Heparin -) 5,000 unit SQ TID [facility] Last Admin: 03/23/17 14:42 Dose: 5,000 unit Hydromorphone HCl (Dilaudid -) 4 mg PO Q6H PRN PRN Reason: PAIN Piperacillin Sod/Tazobactam Sod (Zosyn 3.375gm Ivpb (Pre-Docked)) 50 mls @ 100 mls/hr IVPB Q8H-IV EMMY PRN Reason: Protocol Last Admin: 03/23/17 10:56 Dose: 100 mls/hr Propofol (Diprivan -) 100 mls @ 16.772 mls/hr IVPB TITR EMMY; 50 MCG/KG/MIN PRN Reason: Protocol Last Admin: 03/23/17 09:29 Dose: 15.094 mls/hr Insulin Aspart (Novolog Vial Sliding Scale -) 1 vial SQ ACHS EMMY PRN Reason: Protocol Last Admin: 03/23/17 12:37 Dose: Not Given Insulin Detemir (Levemir Vial) 5 units SQ BID@0700,2200 [facility] Last Admin: 03/23/17 06:33 Dose: 5 units Ipratropium [place] (Atrovent 0.02% Nebulizer -) 1 amp NEB Q6H PRN PRN Reason: WHEEZING Methylprednisolone Sodium Succinate (Solu-Medrol -) 40 mg IVPB BID [facility] Last Admin: 03/23/17 11:00 Dose: 40 mg Mupirocin (Bactroban Ointment (For Decolonization) -) 1 applic NS BID [facility] Stop: 03/26/17 09:59 Last Admin: 03/23/17 14:43 Dose: 1 applic Pancrelipase (Creon Dr 6,000 Units Capsule) 3 cap PO TIDCM [facility] Last Admin: 03/23/17 11:22 Dose: 3 cap Roflumilast (Daliresp -) 500 mcg PO DAILY [facility] Last Admin: 03/23/17 10:58 Dose: 500 mcg ASSESSMENT AND PLAN: Acute on Chronic Hypoxic and Hypercapneic Respiratory Failure r/o Pneumonia Acute COPD Exacerbation Paroxysmal Atrial Fibrillation HTN DM Morbid Obeisty Anemia Chronic Pain Syndrome/Opiate Dependent - wean to extubate - continue antibiotics per ID - IV medrol - inhaled bronchodilators - O2 to keep SpO2 >90% - rate controlled - transfuse PRBC - monitor H/H - may need portacath as pt chronically with poor venous access - DVT/GI prophylaxis - continue ICU monitoring critical care time spent reviewing chart, evaluating patient and formulating plan 36 min
[2017-03-23] MEDS: CHLORHEXIDINE GLUCONATE 4% CLEANSER FOR DECOLONIZATION TP SCH (21:32)
[2017-03-24] MEDS: ALPRAZolam 0.25 MG TABLET PO SCH ×3 (00:10→21:55)
[2017-03-24] MEDS: PIPERACILLIN/TAZOB 3.375 GM 50 ML IVPB SCH ×3 (02:37→18:09)
[2017-03-24] MEDS ORDERED: dilTIAZem HCL 60 MG TABLET (FP) ONE ×4 (06:03→23:07)
[2017-03-24] MEDS ORDERED: dilTIAZem HCL 30 MG TABLET (FP) ONE ×4 (06:04→23:07)
[2017-03-24] MEDS: INSULIN SLIDING SCALE (NOVOLOG) 1 VIAL SQ SCH ×4 (06:10→21:54)
[2017-03-24] MEDS: HEPARIN NA (PORCINE) 5,000 UNITS/ML 1ML VIAL SQ SCH ×3 (06:11→21:49)
[2017-03-24] MEDS: DILTIAZEM 60 MG, DILTIAZEM 30 MG PO SCH ×4 (06:11→23:09)
[2017-03-24] MEDS: INSULIN DETEMIR 100 UNITS/ML MDV SQ SCH ×2 (06:16→21:52)
[2017-03-24 06:26] LABS: MCH 26.2 pg (25.7-33.7); MCHC 32.8 g/dl (32.0-36.0); MEAN PLT VOLUME 8.3 fl (7.5-11.1); PLATELET COUNT 244 K/MM3 (134-434); RDW 17.1 % (11.6-15.6); WHITE BLOOD COUNT 6.6 K/mm3 (4.0-10.0)
[2017-03-24 07:16] LABS: ALBUMIN 2.9 g/dl (3.4-5.0); ANION GAP 11 (8-16); CALCIUM 8.1 mg/dL (8.5-10.1); CO2 33 mmol/L (21-32); GLUCOSE,RANDOM 149 mg/dL (74-106); MAGNESIUM 2.3 mg/dL (1.8-2.4)
[2017-03-24 07:19] LABS: ALK PHOS 242 U/L (45-117); COCKROFT - GAULT 121.9155; CREATININE 0.5 mg/dL (0.55-1.02); SGOT/AST 17 U/L (15-37); SGPT/ALT 63 U/L (12-78); TOT PROT 6.2 g/dl (6.4-8.2)
[2017-03-24] MEDS ORDERED: PT OWN MED DRAWER 7, Y5N ONE ×2 (09:01→18:03)
[2017-03-24 09:22] LABS: METAMYELOCYTE 3 % (0-2)
[2017-03-24 09:23] LABS: PLATELET ESTIMATE ADEQUATE (NORMAL); POLYCHROMASIA 1+; TEAR DROP CELLS 1+
[2017-03-24] MEDS: ARFORMOTEROL TARTRATE 15 MCG/2 ML VIAL NEB SCH ×2 (09:33→21:40)
[2017-03-24] MEDS: LIPASE/PROTEASE/AMYLASE 6,000 UNIT CAPSULE PO SCH ×3 (09:57→18:08)
[2017-03-24] MEDS: ROFLUMILAST 500 MCG TABLET PO SCH (09:58)
[2017-03-24] MEDS: methylPREDNISolone NA SUCC 40 MG/1 ML VIAL IVPB SCH ×2 (09:58→23:10)
[2017-03-24] MEDS: MUPIROCIN 2% TOPICAL OINTMENT FOR DECOLONIZATION NS SCH ×2 (09:59→21:49)
[2017-03-24] MEDS ORDERED: LIDOCAINE 5% TOPICAL PATCH TP SCH (10:00)
--- NOTE | 2017-03-24 11:27 | PN ---
S Progress Note (SOAP) Subjective: I was asked to see pt. because she uses dilaudid for pain. According to pt. she' s under the care of pain management and does not want to be detoxed. Objective: 03/24/17 11:23 Vital Signs - 8 hr 03/24/17 03/24/17 03/24/17 04:00 06:00 07:55 Temperature 97.6 F Pulse Rate 63 64 74 Respiratory 13 13 14 Rate Blood Pressure 141/91 159/92 135/85 O2 Sat by Pulse 100 Oximetry (%) 03/24/17 03/24/17 09:27 10:00 Temperature 98.2 F Pulse Rate 78 76 Respiratory 12 Rate Blood Pressure 139/94 O2 Sat by Pulse 100 Oximetry (%) Laboratory Results - last 24 hr 03/23/17 03/23/17 03/23/17 06:29 07:45 12:30 WBC RBC Hgb Hct MCV MCHC RDW Plt Count MPV Neutrophils % Lymphocytes % Monocytes % Metamyelocytes Myelocytes Nucleated RBCs Differential Comment Platelet Estimate Polychromasia Tear Drop Cells Morphology Comment Sodium Potassium Chloride Carbon Dioxide Anion Gap BUN Creatinine Creat Clearance w eGFR POC Glucometer 135.18774 113.49371 Random Glucose Calcium Phosphorus Magnesium Total Bilirubin AST ALT Alkaline Phosphatase Total Protein Albumin Blood Type A POSITIVE Antibody Screen Negative Crossmatch See Detail 03/23/17 03/23/17 03/24/17 17:07 21:42 06:02 WBC RBC Hgb Hct MCV MCHC RDW Plt Count MPV Neutrophils % Lymphocytes % Monocytes % Metamyelocytes Myelocytes Nucleated RBCs Differential Comment Platelet Estimate Polychromasia Tear Drop Cells Morphology Comment Sodium Potassium Chloride Carbon Dioxide Anion Gap BUN Creatinine Creat Clearance w eGFR POC Glucometer 137.63791 129.65030 154.90046 Random Glucose Calcium Phosphorus Magnesium Total Bilirubin AST ALT Alkaline Phosphatase Total Protein Albumin Blood Type Antibody Screen Crossmatch 03/24/17 03/24/17 03/24/17 06:05 06:05 10:42 WBC 6.6 D RBC 3.80 D Hgb 10.0 L D Hct 30.4 L D MCV 80.0 MCHC 32.8 RDW 17.1 H Plt Count 244 MPV 8.3 Neutrophils % 82.0 Lymphocytes % 8.0 D Monocytes % 6.0 D Metamyelocytes 3 H D Myelocytes 1 Nucleated RBCs 2 H Differential Comment Manual diff done Platelet Estimate Adequate Polychromasia 1+ Tear Drop Cells 1+ Morphology Comment Slide scanned Sodium 140 Potassium 4.0 Chloride 96 L Carbon Dioxide 33 H Anion Gap 11 BUN 24 H Creatinine 0.5 L D Creat Clearance w eGFR > 60 POC Glucometer [phone] Random Glucose 149 H D Calcium 8.1 L Phosphorus 4.0 Magnesium 2.3 Total Bilirubin 2.0 H D AST 17 D ALT 63 Alkaline Phosphatase 242 H Total Protein 6.2 L D Albumin 2.9 L D Blood Type Antibody Screen Crossmatch labs noted Assessment: 03/24/17 11:24 History of chronic pain per patient Plan: Pain management should decide with patient the best course of treatment.
[2017-03-24] MEDS ORDERED: ONDANSETRON 4 MG/2 ML VIAL IVPB ONE (12:30)
[2017-03-24] MEDS ORDERED: ONDANSETRON 4 MG/2 ML VIAL ONE (12:36)
--- NOTE | 2017-03-24 12:51 | PN ---
Teaching Attending Note Name of Resident: Nabor Weldon ATTENDING PHYSICIAN STATEMENT I saw and evaluated the patient. I reviewed the resident's note and discussed the case with the resident. I agree with the resident's findings and plan as documented. SUBJECTIVE: Pt seen and examined in the ICU. Extubated yesterday without incident. States breathing is improving. Occasional cough and wheezing. No fevers recorded. OBJECTIVE: Last Vital Signs Temp Pulse Resp BP Pulse Ox 98.2 F 76 12 139/94 100 03/24/17 10:00 03/24/17 10:00 03/24/17 10:00 03/24/17 10:00 03/24/17 09:27 Intake & Output 03/21/17 03/22/17 03/23/17 03/24/17 23:59 23:59 23:59 23:59 Intake Total 1126 1938 1397 170 Output Total 1550 1300 3900 240 Balance -424 638 -2503 -70 Weight 122 lb 12 oz 123 lb 4 oz 124 lb 7 oz 125 lb 1.6 oz Gen: less tachypneic Heart: RRR Lung: scattered rhonchi Abd: soft, nontender Ext: no edema CBC, BMP 03/24/17 06:05 03/24/17 06:05 Active Medications Alprazolam (Xanax -) 0.25 mg PO BID [facility] Last Admin: 03/24/17 09:58 Dose: 0.25 mg Arformoterol Tartrate (Brovana (Restricted To Pulmonology/Resp) -) 1 amp NEB BID [facility] Last Admin: 03/24/17 09:33 Dose: 1 amp Chlorhexidine Gluconate (Hibiclens For Decolonization -) 1 applic TP HS [facility] Last Admin: 03/23/17 21:32 Dose: 1 applic Diltiazem HCl 60 mg/ Diltiazem (HCl 30 mg) 90 mg PO Q6HPO [facility] Last Admin: 03/24/17 06:11 Dose: 90 mg Heparin Sodium (Porcine) (Heparin -) 5,000 unit SQ TID [facility] Last Admin: 03/24/17 06:11 Dose: 5,000 unit Hydromorphone HCl (Dilaudid -) 4 mg PO Q6H PRN PRN Reason: PAIN Last Admin: 03/24/17 09:58 Dose: 4 mg Piperacillin Sod/Tazobactam Sod (Zosyn 3.375gm Ivpb (Pre-Docked)) 50 mls @ 100 mls/hr IVPB Q8H-IV EMMY PRN Reason: Protocol Last Admin: 03/24/17 09:58 Dose: 100 mls/hr Insulin Aspart (Novolog Vial Sliding Scale -) 1 vial SQ ACHS EMMY PRN Reason: Protocol Last Admin: 03/24/17 06:10 Dose: 2 units Insulin Detemir (Levemir Vial) 5 units SQ BID@0700,2200 [facility] Last Admin: 03/24/17 06:16 Dose: 5 units Ipratropium [place] (Atrovent 0.02% Nebulizer -) 1 amp NEB Q6H PRN PRN Reason: WHEEZING Last Admin: 03/23/17 17:40 Dose: 1 amp Lidocaine (Lidoderm Patch -) 1 patch TP DAILY [facility] Last Admin: 03/24/17 10:04 Dose: Not Given Methylprednisolone Sodium Succinate (Solu-Medrol -) 40 mg IVPB BID [facility] Last Admin: 03/24/17 09:58 Dose: 40 mg Mupirocin (Bactroban Ointment (For Decolonization) -) 1 applic NS BID [facility] Stop: 03/26/17 09:59 Last Admin: 03/24/17 09:59 Dose: 1 applic Pancrelipase (Creon Dr 6,000 Units Capsule) 3 cap PO TIDCM [facility] Last Admin: 03/24/17 12:38 Dose: Not Given Roflumilast (Daliresp -) 500 mcg PO DAILY [facility] Last Admin: 03/24/17 09:58 Dose: 500 mcg ASSESSMENT AND PLAN: Acute on Chronic Hypoxic and Hypercapneic Respiratory Failure improving r/o Pneumonia Acute COPD Exacerbation Paroxysmal Atrial Fibrillation HTN DM Morbid Obeisty Anemia Chronic Pain Syndrome/Opiate Dependent - continue antibiotics per ID - medrol taper - inhaled bronchodilators - O2 to keep SpO2 >90% - BiPAP at night and PRN during day - rate controlled - monitor H/H - may need portacath as pt chronically with poor venous access - DVT/GI prophylaxis - can monitor on floor
--- NOTE | 2017-03-24 13:28 | PN ---
Progress Note (short form) - Note Progress Note: Subjective: The patient was seen and examined at the bedside, she reports her breathing has improved Extubated yesterday Current Medications Generic Name Dose Route Start Last Admin Trade Name Freq PRN Reason Stop Dose Admin Alprazolam 0.25 mg 03/23/17 23:15 03/24/17 09:58 Xanax - PO 0.25 mg BID EMMY Administration Arformoterol Tartrate 1 amp 03/21/17 10:00 03/24/17 09:33 Brovana (Restricted To Pulmonology/Resp) - NEB 1 amp BID EMMY Administration Chlorhexidine Gluconate 1 applic 03/21/17 22:00 03/23/17 21:32 Hibiclens For Decolonization - TP 1 applic HS EMMY Administration Diltiazem HCl 60 mg/ Diltiazem 90 mg 03/22/17 18:00 03/24/17 12:55 HCl 30 mg PO 90 mg Q6HPO EMMY Administration Heparin Sodium (Porcine) 5,000 unit 03/21/17 14:00 03/24/17 06:11 Heparin - SQ 5,000 unit TID EMMY Administration Hydromorphone HCl 4 mg 03/23/17 16:00 03/24/17 09:58 Dilaudid - PO 4 mg Q6H PRN Administration PAIN Piperacillin Sod/Tazobactam Sod 50 mls @ 100 mls/hr 03/21/17 18:00 03/24/17 09: 58 Zosyn 3.375gm Ivpb (Pre-Docked) IVPB 100 mls/hr Q8H-IV EMMY Administration Protocol Insulin Aspart 1 vial 03/21/17 22:00 03/24/17 12:56 Novolog Vial Sliding Scale - SQ 2 units ACHS EMMY Administration Protocol Insulin Detemir 5 units 03/21/17 22:00 03/24/17 06:16 Levemir Vial SQ 5 units BID@0700,2200 EMMY Administration Ipratropium [facility] 1 amp 03/23/17 14:45 03/23/17 17:40 Atrovent 0.02% Nebulizer - NEB 1 amp Q6H PRN Administration WHEEZING Lidocaine 1 patch 03/24/17 10:00 03/24/17 10:04 Lidoderm Patch - TP Not Given DAILY EMMY Methylprednisolone Sodium Succinate 40 mg 03/22/17 17:30 03/24/17 09:58 Solu-Medrol - IVPB 40 mg BID EMMY Administration Mupirocin 1 applic 03/21/17 10:00 03/24/17 09:59 Bactroban Ointment (For Decolonization) - NS 03/26/17 09:59 1 applic BID EMMY Administration Pancrelipase 3 cap 03/22/17 12:00 03/24/17 12:38 Creon 6,000 Units Capsule PO Not Given TIDCM EMMY Roflumilast 500 mcg 03/22/17 12:00 03/24/17 09:58 Daliresp - PO 500 mcg DAILY EMMY Administration Objective: Vital Signs Period Temp Pulse Resp BP Sys/Dan Pulse Ox Last 24 Hr 97.6 F-100.8 F 63-92 12-21 121-160/79-97 99-100 Physical Exam: General: NAD, A&Ox3 Lungs: Scattered rhonci throughout Heart: RRR, S1S2 Abd: Soft, non-tender, non-distended. Normoactive bowel sounds Ext: Able to move toes, unable to lift b/l lower extremities off the bed. 2+ DP/ PT bilaterally Neuro: No focal deficits CBCD WBC 6.6 K/mm3 (4.0-10.0) D 03/24/17 06:05 RBC 3.80 M/mm3 (3.60-5.2) D 03/24/17 06:05 Hgb 10.0 GM/dL (10.7-15.3) L D 03/24/17 06:05 Hct 30.4 % (32.4-45.2) L D 03/24/17 06:05 MCV 80.0 fl (80-96) 03/24/17 06:05 MCHC 32.8 g/dl (32.0-36.0) 03/24/17 06:05 RDW 17.1 % (11.6-15.6) H 03/24/17 06:05 Plt Count 244 K/MM3 (134-434) 03/24/17 06:05 MPV 8.3 fl (7.5-11.1) 03/24/17 06:05 CMP Sodium 140 mmol/L (136-145) 03/24/17 06:05 Potassium 4.0 mmol/L (3.5-5.1) 03/24/17 06:05 Chloride 96 mmol/L (98-107) L 03/24/17 06:05 Carbon Dioxide 33 mmol/L (21-32) H 03/24/17 06:05 Anion Gap 11 (8-16) 03/24/17 06:05 BUN 24 mg/dL (7-18) H 03/24/17 06:05 Creatinine 0.5 mg/dL (0.55-1.02) L D 03/24/17 06:05 Creat Clearance w eGFR > 60 (>60) 03/24/17 06:05 Random Glucose 149 mg/dL (74-106) H D 03/24/17 06:05 Calcium 8.1 mg/dL (8.5-10.1) L 03/24/17 06:05 Total Bilirubin 2.0 mg/dL (0.2-1.0) H D 03/24/17 06:05 AST 17 U/L (15-37) D 03/24/17 06:05 ALT 63 U/L (12-78) 03/24/17 06:05 Alkaline Phosphatase 242 U/L (45-117) H 03/24/17 06:05 Total Protein 6.2 g/dl (6.4-8.2) L D 03/24/17 06:05 Albumin 2.9 g/dl (3.4-5.0) L D 03/24/17 06:05 CARDIAC ENZYMES Creatine Kinase 40 IU/L (26-192) 03/20/17 23:50 Troponin I < 0.02 ng/ml (0.00-0.05) 03/20/17 23:50 Microbiology 03/23/17 11:40 Sputum - Endotrachea Suction/Ventilator Sputum Culture - Preliminary Non Lactose Fermenting Gnb 03/21/17 00:40 Blood - Peripheral Venous Blood Culture - Preliminary NO GROWTH OBTAINED AFTER 72 HOURS, INCUBATION TO CONTINUE FOR 2 DAYS. 03/21/17 00:40 Blood - Peripheral Venous Blood Culture - Preliminary NO GROWTH OBTAINED AFTER 72 HOURS, INCUBATION TO CONTINUE FOR 2 DAYS. 03/21/17 07:30 Urine - Urine Titus Urine Culture - Final Assessment: This is a 51 year old female with PMHx of HTN, paroxysmal a.fib, NIDDM, asthma/COPD O2 dependent, previous trach (s/p removal), uterine cancer, anxiety/depression, bipolar disorder, chronic back pain, dependency to narcotics , recent admission for COPD exacerbation requiring two intubations, now here after being found unresponsive with respiratory failure and intubated in the field. Plan: 1) Pulmonary: Acute on chronic hypoxic respiratory failure - Extubated yesterday without issues - Supplemental O2 prn - Appreciate pulmonary consult Acute on Chronic COPD exacerbation - Continue IV steroids, taper - Continue Daliresp - Continue Brovana - Continue steroids 2) ID: Health care associated pneumonia - Short course of Zosyn - Sputum culture with non lactose fermenting GNB. Awaiting final c/s - WBC wnl - Tmax 100.8 on 03/23 - Appreciate ID consult 3) Hematology: Anemia - Hgb 6.6, s/p 1u PRBC - Continue to monitor 4) Psych: Opioid dependence - Respiratory failure may have been 2/2 polypharmacy: patient was on large amounts of alprazolam, baclofen, benadryl, gabapentin, ambien, doxepin, and high doses of dilaudid for chronic back pain - Will start to detox patient: start Oxycontin 10mg po bid - F/u pain management consult for further recommendations regarding detox 5) Cardiology: Paroxysmal a.fib - Currently in sinus rhythm - Continue Cardizem - Not currently on anticoagulation 2/2 GI bleed on Plavix (see Gitleo's note 04/19) 6) Endocrine: NIDDM - Continue Levemir - BGM ACHS - ISS ACHS Hypothyroidism - TSH low, levothyroxine discontinued, will need repeat testing in 6 weeks 7) F/E/N: - Monitor electrolytes - Diabetic diet 8) Prophylaxis: - Heparin 5,000u sq tid - PT 9) Dispo: - Requires continued ICU care CODE STATUS: FULL CODE Visit type - Emergency Visit Emergency Visit: Yes ED Registration Date: 03/21/17 Care time: The patient presented to the Emergency Department on the above date and was hospitalized for further evaluation of their emergent condition. - New Patient This patient is new to me today: Yes Date on this admission: 03/24/17 - Critical Care Critical Care patient: Yes Total Critical Care Time (in minutes): 45 Critical Care Statement: The care of this patient involved high complexity decision making to prevent further life threatening deterioration of the patient 's condition and/or to evalute & treat vital organ system(s) failure or risk of failure.
--- NOTE | 2017-03-24 13:40 | PN ---
Physical Exam: SUBJECTIVE: Patient seen and examined Patient on venti mask, spo2 100%, denies for nasal canula use bipap in night complains of chronic back pain states breathing is getting better, denies chest pain, palpitations OBJECTIVE: Vital Signs Period Temp Pulse Resp BP Sys/Dan Pulse Ox Last 24 Hr 97.6 F-100.8 F 63-92 12-21 121-164/79-97 99-100 GENERAL: conscious and oriented HEAD: Normal with no signs of trauma. EYES: PERRL, ENT: Ears normal, nares patent, moist mucous membranes. NECK: Trachea midline, full range of motion, supple. LUNGS: Breath sounds equal, b/l rales present. HEART: Regular rate, sis2 normal . ABDOMEN: Soft, nontender, nondistended, normoactive bowel sounds, no guarding, no rebound, EXTREMITIES: 2+ pulses, warm, no edema. SKIN: Warm, dry, Laboratory Results - last 24 hr 03/23/17 03/23/17 03/23/17 07:45 17:07 21:42 WBC RBC Hgb Hct MCV MCHC RDW Plt Count MPV Neutrophils % Lymphocytes % Monocytes % Metamyelocytes Myelocytes Nucleated RBCs Differential Comment Platelet Estimate Polychromasia Tear Drop Cells Morphology Comment Sodium Potassium Chloride Carbon Dioxide Anion Gap BUN Creatinine Creat Clearance w eGFR POC Glucometer [phone] Random Glucose Calcium Phosphorus Magnesium Total Bilirubin AST ALT Alkaline Phosphatase Total Protein Albumin Blood Type A POSITIVE Antibody Screen Negative Crossmatch See Detail 03/24/17 03/24/17 03/24/17 06:02 06:05 06:05 WBC 6.6 D RBC 3.80 D Hgb 10.0 L D Hct 30.4 L D MCV 80.0 MCHC 32.8 RDW 17.1 H Plt Count 244 MPV 8.3 Neutrophils % 82.0 Lymphocytes % 8.0 D Monocytes % 6.0 D Metamyelocytes 3 H D Myelocytes 1 Nucleated RBCs 2 H Differential Comment Manual diff done Platelet Estimate Adequate Polychromasia 1+ Tear Drop Cells 1+ Morphology Comment Slide scanned Sodium 140 Potassium 4.0 Chloride 96 L Carbon Dioxide 33 H Anion Gap 11 BUN 24 H Creatinine 0.5 L D Creat Clearance w eGFR > 60 POC Glucometer [phone] Random Glucose 149 H D Calcium 8.1 L Phosphorus 4.0 Magnesium 2.3 Total Bilirubin 2.0 H D AST 17 D ALT 63 Alkaline Phosphatase 242 H Total Protein 6.2 L D Albumin 2.9 L D Blood Type Antibody Screen Crossmatch 03/24/17 10:42 WBC RBC Hgb Hct MCV MCHC RDW Plt Count MPV Neutrophils % Lymphocytes % Monocytes % Metamyelocytes Myelocytes Nucleated RBCs Differential Comment Platelet Estimate Polychromasia Tear Drop Cells Morphology Comment Sodium Potassium Chloride Carbon Dioxide Anion Gap BUN Creatinine Creat Clearance w eGFR POC Glucometer [phone] Random Glucose Calcium Phosphorus Magnesium Total Bilirubin AST ALT Alkaline Phosphatase Total Protein Albumin Blood Type Antibody Screen Crossmatch Active Medications Generic Name Dose Route Start Last Admin Trade Name Freq PRN Reason Stop Dose Admin Alprazolam 0.25 mg 03/23/17 23:15 03/24/17 09:58 Xanax - PO 0.25 mg BID EMMY Administration Arformoterol Tartrate 1 amp 03/21/17 10:00 03/24/17 09:33 Brovana (Restricted To Pulmonology/Resp) - NEB 1 amp BID EMMY Administration Chlorhexidine Gluconate 1 applic 03/21/17 22:00 03/23/17 21:32 Hibiclens For Decolonization - TP 1 applic HS EMMY Administration Diltiazem HCl 60 mg/ Diltiazem 90 mg 03/22/17 18:00 03/24/17 12:55 HCl 30 mg PO 90 mg Q6HPO EMMY Administration Heparin Sodium (Porcine) 5,000 unit 03/21/17 14:00 03/24/17 06:11 Heparin - SQ 5,000 unit TID EMMY Administration Hydromorphone HCl 4 mg 03/23/17 16:00 03/24/17 09:58 Dilaudid - PO 4 mg Q6H PRN Administration PAIN Piperacillin Sod/Tazobactam Sod 50 mls @ 100 mls/hr 03/21/17 18:00 03/24/17 09: 58 Zosyn 3.375gm Ivpb (Pre-Docked) IVPB 100 mls/hr Q8H-IV EMMY Administration Protocol Insulin Aspart 1 vial 03/21/17 22:00 03/24/17 12:56 Novolog Vial Sliding Scale - SQ 2 units ACHS EMMY Administration Protocol Insulin Detemir 5 units 03/21/17 22:00 03/24/17 06:16 Levemir Vial SQ 5 units BID@0700,2200 EMMY Administration Ipratropium [place] 1 amp 03/23/17 14:45 03/23/17 17:40 Atrovent 0.02% Nebulizer - NEB 1 amp Q6H PRN Administration WHEEZING Lidocaine 1 patch 03/24/17 10:00 03/24/17 10:04 Lidoderm Patch - TP Not Given DAILY EMMY Methylprednisolone Sodium Succinate 40 mg 03/22/17 17:30 03/24/17 09:58 Solu-Medrol - IVPB 40 mg BID EMMY Administration Mupirocin 1 applic 03/21/17 10:00 03/24/17 09:59 Bactroban Ointment (For Decolonization) - NS 03/26/17 09:59 1 applic BID EMMY Administration Pancrelipase 3 cap 03/22/17 12:00 03/24/17 12:38 Creon 6,000 Units Capsule PO Not Given TIDCM EMMY Roflumilast 500 mcg 03/22/17 12:00 03/24/17 09:58 Daliresp - PO 500 mcg DAILY EMMY Administration ASSESSMENT/PLAN: Acute on chronic hypercapnic and hypoxic respiratory failure, could be from copd excerbration, pneumonia Maintaining a saturation on ventury spo2 100% keep spo2 > 90 monitor vitals use BIPAP in night i/e 16/, fio2 40, rr 16 continue with nebulizer continue with iv steroid solumedrol 40mg iv bid on zosyn day 3 id on case Opioid dependency on dilaudid 4mg po q6h prn for back pain monitor for respiratory depression Lactic acidosis, resolved Paroxysmal afib rate control on cardiazem 90mg po q6h not on ac due to risk of bleeding and anemia Hypertension continue cardizem IDDM Levemir 5mg BID Novolog sliding scale coverage blood glucose monitoring Hypothroidism TSH low; stop levothyroxine; will need repeat level in 6 weeks F/E/N Fluids: orally allowed Electrolytes: replete as indicated Nutrition: clear liquid DVT prophylaxis: sq heparin Dispo: transfer med surg Visit type - Emergency Visit Emergency Visit: Yes ED Registration Date: 03/21/17 Care time: The patient presented to the Emergency Department on the above date and was hospitalized for further evaluation of their emergent condition. - New Patient This patient is new to me today: No - Critical Care Critical Care patient: Yes Total Critical Care Time (in minutes): 45 Critical Care Statement: The care of this patient involved high complexity decision making to prevent further life threatening deterioration of the patient 's condition and/or to evalute & treat vital organ system(s) failure or risk of failure.
--- NOTE | 2017-03-24 13:45 | PN ---
Progress Note (short form) - Note Progress Note: extubated yesterday alert complaining of constipation Vital Signs Period Temp Pulse Resp BP Sys/Dan Pulse Ox Last 24 Hr 97.6 F-100.8 F 63-92 12-21 121-164/79-97 99-100 cor-rrr lungs clear abd soft,nt ext no edema CBC, BMP 03/24/17 06:05 03/24/17 06:05 Microbiology 03/23/17 11:40 Sputum - Endotrachea Suction/Ventilator Sputum Culture - Preliminary Non Lactose Fermenting Gnb 03/21/17 00:40 Blood - Peripheral Venous Blood Culture - Preliminary NO GROWTH OBTAINED AFTER 72 HOURS, INCUBATION TO CONTINUE FOR 2 DAYS. 03/21/17 00:40 Blood - Peripheral Venous Blood Culture - Preliminary NO GROWTH OBTAINED AFTER 72 HOURS, INCUBATION TO CONTINUE FOR 2 DAYS. 03/21/17 07:30 Urine - Urine Titus Urine Culture - Final a/p respiratory failure copd pneumonia- day #3 zosyn, f/u cultures
[2017-03-24] MEDS: POLYETHYLENE GLYCOL 3350 119 GM BTL PO SCH ×2 (14:30→21:53)
[2017-03-24] MEDS: IPRATROPIUM BR 0.02% 0.5 MG/2.5 ML VIAL.NEB. NEB PRN (17:11)
--- NOTE | 2017-03-24 18:37 | CONSULT ---
Consult Consult Specialty:: pain medicine Referred by:: hospitalist Reason for Consultation:: back pain - History of Present Illness Chief Complaint: back pain History of Present Illness: 51 year old woman with a history of chronic back and leg pain. Her pain started since she had to have surgery to remove metastatic lesions in her spine. She was seeing Dr Lynne who put her on high dose opioids and was been given these opioids by Dr Mckeon office. She was on 120 pills of dilaudid 4mg every 20 days. - Past Medical History Cardio/Vascular: Yes: AFIB (Paroxysmal), HTN, Hyperlipdemia Pulmonary: Yes: Asthma, COPD, O2 Dependent Renal/: Yes: Cancer (Uterine), Other ([place] in the past) ...: No Infectious Disease: Yes: C-Diff (june 2014), Other (Osteomyelitis of thoracic spine) Psych: Yes: Anxiety, Bipolar, Depression Musculoskeletal: Yes: Chronic low back pain Additional Medical History: Frequent c/o abdominal pain-extensive w/u in the past negative. Presumed adhesions from prior surgeries. - Past Surgical History Past Surgical History: Yes: Hysterectomy (with BSO) - Alcohol/Substance Use Hx Alcohol Use: No - Smoking History Smoking history: Former smoker Have you smoked in the past 12 months: No Aproximately how many cigarettes per day: 3 If you are a former smoker, when did you quit?: 10/11/14 - Social History Usual Living Arrangement: With Significant Other 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) History of Recent Travel: No Home Medications - Allergies Allergies/Adverse Reactions: Allergies Allergy/AdvReac Type Severity Reaction Status Date / Time oxycodone [Oxycodone] Allergy Severe Nausea Verified 03/20/17 23:21 oxycodone HCl [From Percocet] Allergy Severe Nausea Verified 03/20/17 23:21 aspirin Allergy Mild Verified 03/20/17 23:21 blueberry [Blueberry] Allergy Mild Swelling Verified 03/20/17 23:21 fentanyl Allergy Verified 03/20/17 23:21 - Home Medications Home Medications: Ambulatory Orders Levothyroxine [Synthroid -] 25 mcg PO DAILY@0700 tablet 06/05/16 Albuterol 2.5/Ipratropium 0.5 [Duoneb -] 1 amp NEB Q4HPO amp 09/17/16 Alprazolam [Xanax] 0.25 mg PO BID tablet MDD 2 09/17/16 Diltiazem [Cardizem -] 60 mg PO Q6HPO tablet 09/17/16 Magnesium Oxide [Mag-Ox -] 400 mg PO BID tablet 09/17/16 Baclofen [Lioresal -] 20 mg PO TID 10/01/16 Budesonide/Formeterol Fumarate [SYMBICORT 160/4.5mcg -] 2 inh PO BID 11/01/16 Diphenhydramine [Benadryl 12.5 MG/5 ML Oral Solution -] 25 mg PO Q4H PRN Eletriptan Hydrobromide [Relpax -] 40 mg PO PRN PRN 11/01/16 Gabapentin [Neurontin -] 300 mg PO TID 11/01/16 Metoprolol Tartrate [Lopressor -] 25 mg PO TID 11/01/16 Omeprazole 40 mg PO BID 11/01/16 Insulin Sliding Scale [Novolog Vial Sliding Scale -] 0 units SQ ACHS PRN Doxepin HCl [Sinequan -] 25 mg PO HS capsule 11/20/16 Lactobacillus Acidophilus [Bacid -] 1 tab PO BID tab 11/20/16 Metoclopramide HCl [Reglan -] 10 mg PO TIDAC tablet 11/20/16 Multivitamins [Multivit ([facility] Formul[facility])] 1 tab PO DAILY tab 11/20/16 Ondansetron [Zofran -] 4 mg PO Q4H PRN #0 tablet 11/20/16 Zinc Oxide 1 applic TP BID tube 11/20/16 Insulin (Levemir) [Levemir Vial] 5 unit SQ DAILY #1 vial 11/21/16 Cholecalciferol (Vitamin D3) [Vitamin D3 -] 2,000 unit PO DAILY #30 tab Albuterol Sulfate Inhaler - [Ventolin HFA Inhaler -] 2 puff IH Q4H PRN #0 inhaler 11/29/16 Prednisone 10 mg PO DAILY #15 tablet 11/29/16 Sucralfate [Carafate -] 1 gm PO QID tablet 12/16/16 Hydromorphone [Dilaudid -] 4 mg PO Q4H PRN #0 tablet MDD 24mg 12/17/16 Diltiazem [Cardizem -] 60 mg PO Q6HPO tablet 03/16/17 Mometasone Furoate [Asmanex 220Mcg -] 2 puff IH DAILY inhaler 03/16/17 Omeprazole Magnesium [Prilosec] 20 mg PO BID 03/21/17 Family Disease History - Family Disease History Family Disease History: Diabetes: Mother (heart surgery), Heart Disease: Mother , CA: Father (leukemia) Physical Exam Vital Signs: Vital Signs Temperature 98.5 F 03/24/17 16:58 Pulse Rate 90 03/24/17 16:58 Respiratory Rate 16 03/24/17 16:58 Blood Pressure 139/93 03/24/17 16:58 O2 Sat by Pulse Oximetry (%) 100 03/24/17 14:00 Musculoskeletal: Yes: Back Pain Labs: CBC, BMP 03/24/17 06:05 03/24/17 06:05 Assessment/Plan CHronic opioid use Opioid dependence Chronic back pain Postlaminectomy syndrome Lumbar radiculopathy THe patient has extensive spine surgery in the past after reviewing mris in 2012. She reports recent mri at [facility] which did not show cancer. Her continued pain in her lower back is most likely secondary to post laminectomy pain, instrumentation pain and lumbar radiculopathy 1. Gabapentin 300mg PO q8h 2. Tylenol PRN pain 3. Limit opioid use as this is chronic pain, but SHE WILL most likely require some opioids due to her pain issue. 4. Physical therapy/REHAB 5. Education on opioid use and side effects 6. Psych eval if not performed recently for ANXIETY
[2017-03-24] MEDS: CHLORHEXIDINE GLUCONATE 4% CLEANSER FOR DECOLONIZATION TP SCH (21:52)
[2017-03-24] MEDS: oxyCODONE HCL 10 MG SUSTAINED ACTING TABLET PO SCH (21:54)
[2017-03-24] MEDS ORDERED: oxyCODONE HCL 20 MG SUSTAINED ACTING TABLET PO SCH (22:00)
[2017-03-25] MEDS: PIPERACILLIN/TAZOB 3.375 GM 50 ML IVPB SCH ×3 (01:57→18:03)
[2017-03-25] MEDS ORDERED: dilTIAZem HCL 60 MG TABLET (FP) ONE ×3 (06:22→17:49)
[2017-03-25] MEDS ORDERED: dilTIAZem HCL 30 MG TABLET (FP) ONE ×3 (06:22→17:49)
[2017-03-25] MEDS ORDERED: INSULIN (NOVOLOG) ASPART 100 UNITS/ML 10ML VIAL ONE ×3 (06:23→22:21)
[2017-03-25] MEDS: DILTIAZEM 60 MG, DILTIAZEM 30 MG PO SCH ×3 (06:31→18:05)
[2017-03-25] MEDS: INSULIN SLIDING SCALE (NOVOLOG) 1 VIAL SQ SCH ×4 (06:33→22:50)
[2017-03-25] MEDS: HEPARIN NA (PORCINE) 5,000 UNITS/ML 1ML VIAL SQ SCH ×3 (06:33→22:49)
[2017-03-25] MEDS: INSULIN DETEMIR 100 UNITS/ML MDV SQ SCH ×2 (06:34→22:49)
[2017-03-25] MEDS: IPRATROPIUM BR 0.02% 0.5 MG/2.5 ML VIAL.NEB. NEB PRN ×2 (06:40→18:16)
[2017-03-25] MEDS: LIPASE/PROTEASE/AMYLASE 6,000 UNIT CAPSULE PO SCH ×3 (08:20→17:03)
[2017-03-25] MEDS ORDERED: ONDANSETRON 4 MG/2 ML VIAL IVPB ONE (08:30)
[2017-03-25 09:58] LABS: MCH 26.8 pg (25.7-33.7); MCHC 34.1 g/dl (32.0-36.0); MEAN CELL VOLUME 78.5 fl (80-96); MEAN PLT VOLUME 7.8 fl (7.5-11.1); PLATELET COUNT 219 K/MM3 (134-434); RDW 17.1 % (11.6-15.6); WHITE BLOOD COUNT 4.1 K/mm3 (4.0-10.0)
[2017-03-25] MEDS ORDERED: PT OWN MED DRAWER 7, Y5N ONE ×2 (10:00→22:20)
[2017-03-25] MEDS ORDERED: ACETAMINOPHEN 325 MG TABLET (FP) PO PRN (10:03)
[2017-03-25] MEDS: MUPIROCIN 2% TOPICAL OINTMENT FOR DECOLONIZATION NS SCH ×2 (10:03→22:49)
[2017-03-25] MEDS: methylPREDNISolone NA SUCC 40 MG/1 ML VIAL IVPB SCH ×2 (10:03→22:30)
[2017-03-25] MEDS: ROFLUMILAST 500 MCG TABLET PO SCH (10:04)
[2017-03-25] MEDS: LIDOCAINE 5% TOPICAL PATCH TP SCH (10:05)
[2017-03-25] MEDS: oxyCODONE HCL 10 MG SUSTAINED ACTING TABLET PO SCH ×2 (10:05→22:50)
[2017-03-25] MEDS: POLYETHYLENE GLYCOL 3350 119 GM BTL PO SCH ×2 (10:05→22:50)
[2017-03-25] MEDS: ALPRAZolam 0.25 MG TABLET PO SCH ×2 (10:06→22:30)
--- NOTE | 2017-03-25 10:10 | PN ---
Progress Note (short form) - Note Progress Note: Subjective: The patient was seen and examined at the bedside, she was transferred out of the ICU yesterday. She appears comfortable. She states she needs more pain medications. Oxycontin due now Current Medications Generic Name Dose Route Start Last Admin Trade Name Freq PRN Reason Stop Dose Admin Acetaminophen 650 mg 03/25/17 10:03 Tylenol - PO Q6H PRN FEVER OR PAIN Alprazolam 0.25 mg 03/24/17 22:00 03/24/17 21:55 Xanax - PO 0.25 mg BID EMMY Administration Arformoterol Tartrate 1 amp 03/24/17 22:00 03/24/17 21:40 Brovana (Restricted To Pulmonology/Resp) - NEB 1 amp BID EMMY Administration Chlorhexidine Gluconate 1 applic 03/24/17 22:00 03/24/17 21:52 Hibiclens For Decolonization - TP 1 applic HS EMMY Administration Diltiazem HCl 60 mg/ Diltiazem 90 mg 03/24/17 18:00 03/25/17 06:31 HCl 30 mg PO 90 mg Q6HPO EMMY Administration Heparin Sodium (Porcine) 5,000 unit 03/24/17 22:00 03/25/17 06:33 Heparin - SQ 5,000 unit TID EMMY Administration Piperacillin Sod/Tazobactam Sod 50 mls @ 100 mls/hr 03/24/17 18:00 03/25/17 01: 57 Zosyn 3.375gm Ivpb (Pre-Docked) IVPB 100 mls/hr Q8H-IV EMMY Administration Protocol Insulin Aspart 1 vial 03/24/17 16:30 03/25/17 06:33 Novolog Vial Sliding Scale - SQ 2 units ACHS EMMY Administration Protocol Insulin Detemir 5 units 03/24/17 22:00 03/25/17 06:34 Levemir Vial SQ 5 units BID@0700,2200 EMMY Administration Ipratropium [place] 1 amp 03/24/17 15:09 03/25/17 06:40 Atrovent 0.02% Nebulizer - NEB 1 amp Q6H PRN Administration WHEEZING Lidocaine 1 patch 03/25/17 10:00 Lidoderm Patch - TP DAILY EMMY Methylprednisolone Sodium Succinate 40 mg 03/24/17 22:00 03/24/17 23:10 Solu-Medrol - IVPB 40 mg BID EMMY Administration Mupirocin 1 applic 03/24/17 22:00 03/24/17 21:49 Bactroban Ointment (For Decolonization) - NS 03/26/17 09:59 Not Given BID EMMY Oxycodone HCl 10 mg 03/24/17 22:00 03/24/17 21:54 Oxycontin - PO 10 mg BID EMMY Administration Pancrelipase 3 cap 03/24/17 17:30 03/25/17 08:20 Eamon Turner 6,000 Units Capsule PO Not Given TIDCM EMMY Polyethylene Glycol 17 gm 03/24/17 22:00 03/24/17 21:53 Miralax (For Daily Use) - PO 17 gm BID EMMY Administration Roflumilast 500 mcg 03/25/17 10:00 Daliresp - PO DAILY EMMY Objective: Vital Signs Period Temp Pulse Resp BP Sys/Dan Pulse Ox Last 24 Hr 98.5 F-98.9 F 74-104 12-16 125-164/86-97 97-100 Physical Exam: General: NAD, A&Ox3 Lungs: Scattered rhonci throughout Heart: RRR, S1S2 Abd: Soft, non-tender, non-distended. Normoactive bowel sounds Ext: Able to move toes, unable to lift b/l lower extremities off the bed. 2+ DP/ PT bilaterally Neuro: No focal deficits CBCD WBC 4.1 K/mm3 (4.0-10.0) D 03/25/17 09:35 RBC 4.13 M/mm3 (3.60-5.2) 03/25/17 09:35 Hgb 11.1 GM/dL (10.7-15.3) D 03/25/17 09:35 Hct 32.5 % (32.4-45.2) 03/25/17 09:35 MCV 78.5 fl (80-96) L 03/25/17 09:35 MCHC 34.1 g/dl (32.0-36.0) 03/25/17 09:35 RDW 17.1 % (11.6-15.6) H 03/25/17 09:35 Plt Count 219 K/MM3 (134-434) 03/25/17 09:35 MPV 7.8 fl (7.5-11.1) 03/25/17 09:35 CMP Sodium 140 mmol/L (136-145) 03/24/17 06:05 Potassium 4.0 mmol/L (3.5-5.1) 03/24/17 06:05 Chloride 96 mmol/L (98-107) L 03/24/17 06:05 Carbon Dioxide 33 mmol/L (21-32) H 03/24/17 06:05 Anion Gap 11 (8-16) 03/24/17 06:05 BUN 24 mg/dL (7-18) H 03/24/17 06:05 Creatinine 0.5 mg/dL (0.55-1.02) L D 03/24/17 06:05 Creat Clearance w eGFR > 60 (>60) 03/24/17 06:05 Random Glucose 149 mg/dL (74-106) H D 03/24/17 06:05 Calcium 8.1 mg/dL (8.5-10.1) L 03/24/17 06:05 Total Bilirubin 2.0 mg/dL (0.2-1.0) H D 03/24/17 06:05 AST 17 U/L (15-37) D 03/24/17 06:05 ALT 63 U/L (12-78) 03/24/17 06:05 Alkaline Phosphatase 242 U/L (45-117) H 03/24/17 06:05 Total Protein 6.2 g/dl (6.4-8.2) L D 03/24/17 06:05 Albumin 2.9 g/dl (3.4-5.0) L D 03/24/17 06:05 CARDIAC ENZYMES Creatine Kinase 40 IU/L (26-192) 03/20/17 23:50 Troponin I < 0.02 ng/ml (0.00-0.05) 03/20/17 23:50 Microbiology 03/21/17 00:40 Blood - Peripheral Venous Blood Culture - Preliminary NO GROWTH OBTAINED AFTER 96 HOURS, INCUBATION TO CONTINUE FOR 1 DAYS. 03/21/17 00:40 Blood - Peripheral Venous Blood Culture - Preliminary NO GROWTH OBTAINED AFTER 96 HOURS, INCUBATION TO CONTINUE FOR 1 DAYS. 03/23/17 11:40 Sputum - Endotrachea Suction/Ventilator Sputum Culture - Preliminary Non Lactose Fermenting Gnb 03/21/17 07:30 Urine - Urine Titus Urine Culture - Final Assessment: This is a 51 year old female with PMHx of HTN, paroxysmal a.fib, NIDDM, asthma/COPD O2 dependent, previous trach (s/p removal), uterine cancer, anxiety/depression, bipolar disorder, chronic back pain, dependency to narcotics , recent admission for COPD exacerbation requiring two intubations, now here after being found unresponsive with respiratory failure and intubated in the field. Plan: 1) Pulmonary: Acute on chronic hypoxic respiratory failure - Extubated 03/23 - Supplemental O2 prn - Bipap overnight - Appreciate pulmonary consult Acute on Chronic COPD exacerbation - Continue IV steroids, taper - Continue Daliresp - Continue Brovana - Continue steroids 2) ID: Health care associated pneumonia - Short course of Zosyn (Day #4) - Sputum culture with non lactose fermenting GNB. Awaiting final c/s - Appreciate ID consult 3) Hematology: Anemia - Hgb stable - Continue to monitor 4) Psych: Opioid dependence - Respiratory failure may have been 2/2 polypharmacy: patient was on large amounts of alprazolam, baclofen, benadryl, gabapentin, ambien, doxepin, and high doses of dilaudid for chronic back pain - Continue Oxycontin 10mg po bid - Acetaminophen prn - Appreciate pain management consult 5) Cardiology: Paroxysmal a.fib - Currently in sinus rhythm - Continue Cardizem - Not currently on anticoagulation 2/2 GI bleed on Plavix (see Gitig's note 04/19) 6) Endocrine: NIDDM - Continue Levemir - BGM ACHS - ISS ACHS Hypothyroidism - TSH low, levothyroxine discontinued, will need repeat testing in 6 weeks 7) F/E/N: - Monitor electrolytes - Diabetic diet 8) Prophylaxis: - Heparin 5,000u sq tid - PT 9) Dispo: - Requires continued ICU care CODE STATUS: FULL CODE Visit type - Emergency Visit Emergency Visit: Yes ED Registration Date: 03/21/17 Care time: The patient presented to the Emergency Department on the above date and was hospitalized for further evaluation of their emergent condition. - New Patient This patient is new to me today: No - Critical Care Critical Care patient: No
[2017-03-25] MEDS: ARFORMOTEROL TARTRATE 15 MCG/2 ML VIAL NEB SCH (10:20)
[2017-03-25 10:24] LABS: ALBUMIN 2.9 g/dl (3.4-5.0); ANION GAP 11 (8-16); BILIRUBIN,TOTAL 0.9 mg/dL (0.2-1.0); CALCIUM 8.2 mg/dL (8.5-10.1); CO2 32 mmol/L (21-32); COCKROFT - GAULT 151.0535; CREATININE 0.4 mg/dL (0.55-1.02); GLUCOSE,RANDOM 191 mg/dL (74-106); MAGNESIUM 2.3 mg/dL (1.8-2.4); PHOSPHOROUS 3.3 mg/dL (2.5-4.9); SGOT/AST 13 U/L (15-37); SGPT/ALT 55 U/L (12-78); TOT PROT 5.9 g/dl (6.4-8.2)
[2017-03-25 10:25] LABS: ALK PHOS 229 U/L (45-117)
[2017-03-25] MEDS ORDERED: POTASSIUM CHLORIDE TABS 20 MEQ TABLET.ER (FP) PO ONE ×2 (10:40→15:00)
--- NOTE | 2017-03-25 16:50 | PN ---
Progress Note (short form) - Note Progress Note: PULMONARY WELL KNOWN BY OUR SERVICE SUBJECTIVE IMPROVEMENT VSS/AFEBRILE ANICTERIC CLEAR B/L ANTERIOR BREATH SOUNDS S1S2 BS+ LESS EDEMA LABS/MEDS/NOTES/IMAGING/REVIEWED Acute on Chronic Hypoxic and Hypercapneic Respiratory Failure improving Hypokalemia Acute COPD Exacerbation Paroxysmal Atrial Fibrillation HTN DM Morbid Obeisty Anemia Chronic Pain Syndrome/Opiate Dependent - continue antibiotics per ID - medrol taper - replete K+ - inhaled bronchodilators - O2 to keep SpO2 >90% - BiPAP at night and PRN during day - rate controlled - monitor H/H - may need portacath as pt chronically with poor venous access - DVT/GI prophylaxis Sreedhar SEXTON MD
[2017-03-25] MEDS ORDERED: ONDANSETRON 4 MG/2 ML VIAL IVPUSH ONE (20:03)
[2017-03-25] MEDS: CHLORHEXIDINE GLUCONATE 4% CLEANSER FOR DECOLONIZATION TP SCH (22:49)
[2017-03-26] MEDS: IPRATROPIUM BR 0.02% 0.5 MG/2.5 ML VIAL.NEB. NEB PRN ×3 (00:10→17:56)
[2017-03-26] MEDS: BUDESONIDE/FORMETEROL FUMARATE 80/4.5 mcg INHALER IH SCH ×2 (00:14→11:46)
[2017-03-26] MEDS ORDERED: dilTIAZem HCL 30 MG TABLET (FP) ONE ×5 (00:20→23:11)
[2017-03-26] MEDS ORDERED: dilTIAZem HCL 60 MG TABLET (FP) ONE ×5 (00:21→23:12)
[2017-03-26] MEDS: DILTIAZEM 60 MG, DILTIAZEM 30 MG PO SCH ×5 (00:22→23:36)
[2017-03-26] MEDS: PIPERACILLIN/TAZOB 3.375 GM 50 ML IVPB SCH ×3 (02:26→17:50)
[2017-03-26] MEDS ORDERED: ONDANSETRON 4 MG/2 ML VIAL IVPUSH ONE (05:45)
[2017-03-26] MEDS: HEPARIN NA (PORCINE) 5,000 UNITS/ML 1ML VIAL SQ SCH ×3 (06:04→21:35)
[2017-03-26] MEDS: INSULIN SLIDING SCALE (NOVOLOG) 1 VIAL SQ SCH ×4 (06:06→22:47)
[2017-03-26] MEDS: INSULIN DETEMIR 100 UNITS/ML MDV SQ SCH ×2 (06:06→22:19)
[2017-03-26] MEDS ORDERED: INSULIN DETEMIR 100 UNITS/ML MDV SQ ONE (06:39)
[2017-03-26] MEDS ORDERED: PT OWN MED DRAWER 7, Y5N ONE ×2 (06:40→09:18)
[2017-03-26] MEDS ORDERED: INSULIN (NOVOLOG) ASPART 100 UNITS/ML 10ML VIAL ONE (06:40)
[2017-03-26 09:09] LABS: ALK PHOS 204 U/L (45-117); ANION GAP 8 (8-16); BILIRUBIN,TOTAL 0.5 mg/dL (0.2-1.0); CALCIUM 8.2 mg/dL (8.5-10.1); CO2 28 mmol/L (21-32); COCKROFT - GAULT 120.8445; CREATININE 0.5 mg/dL (0.55-1.02); GLUCOSE,RANDOM 156 mg/dL (74-106); SGOT/AST 13 U/L (15-37); SGPT/ALT 48 U/L (12-78)
[2017-03-26] MEDS: POLYETHYLENE GLYCOL 3350 119 GM BTL PO SCH ×2 (09:23→21:35)
[2017-03-26] MEDS: oxyCODONE HCL 10 MG SUSTAINED ACTING TABLET PO SCH ×2 (09:24→21:33)
[2017-03-26] MEDS: ALPRAZolam 0.25 MG TABLET PO SCH ×2 (09:24→21:35)
[2017-03-26] MEDS: LIPASE/PROTEASE/AMYLASE 6,000 UNIT CAPSULE PO SCH ×3 (09:27→17:51)
[2017-03-26] MEDS: ROFLUMILAST 500 MCG TABLET PO SCH (09:27)
[2017-03-26] MEDS: LIDOCAINE 5% TOPICAL PATCH TP SCH (09:29)
[2017-03-26] MEDS: methylPREDNISolone NA SUCC 40 MG/1 ML VIAL IVPB SCH ×2 (09:30→21:33)
--- NOTE | 2017-03-26 11:46 | PN ---
Progress Note (short form) - Note Progress Note: Awake and alert, doing PT in her bed w/o O2. Some dry cough. No CP. Intake & Output 03/23/17 03/24/17 03/25/17 03/26/17 23:59 23:59 23:59 23:59 Intake Total 1397 690 825 50 Output Total 3900 440 Balance -2503 250 825 50 Weight 124 lb 7 oz 125 lb 1.6 oz 124 lb Last Vital Signs Temp Pulse Resp BP Pulse Ox 98.4 F 83 20 104/60 97 03/26/17 06:00 03/26/17 11:35 03/26/17 06:00 03/26/17 06:00 03/26/17 11:35 Active Medications Acetaminophen (Tylenol -) 650 mg PO Q6H PRN PRN Reason: FEVER OR PAIN Alprazolam (Xanax -) 0.25 mg PO BID [facility] Last Admin: 03/26/17 09:24 Dose: 0.25 mg Budesonide/Formoterol Fumarate (Symbicort 80/4.5mcg -) 2 puff IH BID [facility] Last Admin: 03/26/17 00:14 Dose: Not Given Chlorhexidine Gluconate (Hibiclens For Decolonization -) 1 applic TP HS [facility] Last Admin: 03/25/17 22:49 Dose: Not Given Diltiazem HCl 60 mg/ Diltiazem (HCl 30 mg) 90 mg PO Q6HPO [facility] Last Admin: 03/26/17 06:04 Dose: 90 mg Heparin Sodium (Porcine) (Heparin -) 5,000 unit SQ TID [facility] Last Admin: 03/26/17 06:04 Dose: 5,000 unit Piperacillin Sod/Tazobactam Sod (Zosyn 3.375gm Ivpb (Pre-Docked)) 50 mls @ 100 mls/hr IVPB Q8H-IV [facility] PRN Reason: Protocol Last Admin: 03/26/17 09:31 Dose: 100 mls/hr Insulin Aspart (Novolog Vial Sliding Scale -) 1 vial SQ ACHS [facility] PRN Reason: Protocol Last Admin: 03/26/17 06:06 Dose: 2 units Insulin Detemir (Levemir Vial) 5 units SQ BID@0700,2200 [facility] Last Admin: 03/26/17 06:06 Dose: 5 units Ipratropium [place] (Atrovent 0.02% Nebulizer -) 1 amp NEB Q6H PRN PRN Reason: WHEEZING Last Admin: 03/26/17 07:18 Dose: 1 amp Lidocaine (Lidoderm Patch -) 1 patch TP DAILY [facility] Last Admin: 03/26/17 09:29 Dose: Not Given Methylprednisolone Sodium Succinate (Solu-Medrol -) 40 mg IVPB BID [facility] Last Admin: 03/26/17 09:30 Dose: 40 mg Oxycodone HCl (Oxycontin -) 10 mg PO BID [facility] Last Admin: 03/26/17 09:24 Dose: 10 mg Pancrelipase (Creon Dr 6,000 Units Capsule) 3 cap PO TIDCM [facility] Last Admin: 03/26/17 09:27 Dose: Not Given Polyethylene Glycol (Miralax (For Daily Use) -) 17 gm PO BID [facility] Last Admin: 03/26/17 09:23 Dose: 17 gm Roflumilast (Daliresp -) 500 mcg PO DAILY [facility] Last Admin: 03/26/17 09:27 Dose: 500 mcg Constitutional: Yes: awake, alert, NAD Eyes: Yes: Conjunctiva Clear, EOM Intact HENT: Yes: Atraumatic, Normocephalic Neck: Yes: Supple, Trachea Midline Cardiovascular: Yes: Tachycardia Respiratory: Yes: Diminished, few scattered rhonchi. No: Accessory Muscle Use, Stridor, Wheezes Gastrointestinal: Yes: Normal Bowel Sounds, Soft ...Rectal Exam: Yes: Deferred Renal/: Yes: WNL Musculoskeletal: Yes: WNL Extremities: Yes: Shortened Edema: No Peripheral Pulses WNL: Yes Integumentary: Yes: WNL Laboratory Results - last 24 hr 03/25/17 03/25/17 03/25/17 11:59 17:05 22:37 Sodium Potassium Chloride Carbon Dioxide Anion Gap BUN Creatinine Creat Clearance w eGFR POC Glucometer 178 164 200 Random Glucose Calcium Total Bilirubin AST ALT Alkaline Phosphatase Total Protein Albumin 03/26/17 03/26/17 06:02 08:25 Sodium 140 Potassium 4.3 D Chloride 104 Carbon Dioxide 28 Anion Gap 8 BUN 31 H Creatinine 0.5 L D Creat Clearance w eGFR > 60 POC Glucometer 196 Random Glucose 156 H Calcium 8.2 L Total Bilirubin 0.5 D AST 13 L ALT 48 Alkaline Phosphatase 204 H Total Protein 6.0 L Albumin 3.0 L Problem List - Problems (1) Acute exacerbation of COPD with asthma Code(s): J44.1 - CHRONIC OBSTRUCTIVE PULMONARY DISEASE W (ACUTE) EXACERBATION J45.901 - UNSPECIFIED ASTHMA WITH (ACUTE) EXACERBATION (2) Acute hypercapnic respiratory failure Code(s): J96.02 - ACUTE RESPIRATORY FAILURE WITH HYPERCAPNIA (3) Anemia Code(s): D64.9 - ANEMIA, UNSPECIFIED (4) Collapse of left lung Code(s): J98.11 - ATELECTASIS (5) DVT prophylaxis Code(s): [id number] - (6) Pneumonia Code(s): J18.9 - PNEUMONIA, UNSPECIFIED ORGANISM Qualifiers: Pneumonia type: due to unspecified organism Laterality: right Lung location: upper lobe of lung Qualified Code(s): J18.1 - Lobar pneumonia, unspecified organism (7) Acute and chronic respiratory failure Code(s): J96.20 - ACUTE AND CHR RESP FAILURE, UNSP W HYPOXIA OR HYPERCAPNIA Qualifiers: Respiratory failure complication: hypoxia Qualified Code(s): J96.21 - Acute and chronic respiratory failure with hypoxia (8) Anxiety Code(s): F41.9 - ANXIETY DISORDER, UNSPECIFIED (9) Bipolar 2 disorder Code(s): F31.81 - BIPOLAR II DISORDER (10) Chronic back pain Code(s): M54.9 - DORSALGIA, UNSPECIFIED G89.29 - OTHER CHRONIC PAIN (11) Chronic respiratory failure with hypoxia Code(s): J96.11 - CHRONIC RESPIRATORY FAILURE WITH HYPOXIA (12) Depression with anxiety Code(s): F41.8 - OTHER SPECIFIED ANXIETY DISORDERS (13) HTN (hypertension) Code(s): I10 - ESSENTIAL (PRIMARY) HYPERTENSION Qualifiers: (14) Hyperlipidemia Code(s): E78.5 - HYPERLIPIDEMIA, UNSPECIFIED (15) Opioid dependence Code(s): F11.20 - OPIOID DEPENDENCE, UNCOMPLICATED (16) Paroxysmal atrial fibrillation Code(s): I48.0 - PAROXYSMAL ATRIAL FIBRILLATION (17) Diabetes mellitus, insulin dependent (IDDM), uncontrolled Code(s): E10.65 - TYPE 1 DIABETES MELLITUS WITH HYPERGLYCEMIA (18) GERD (gastroesophageal reflux disease) Code(s): K21.9 - GASTRO-ESOPHAGEAL REFLUX DISEASE WITHOUT ESOPHAGITIS (19) Mood disorder Code(s): F39 - UNSPECIFIED MOOD [AFFECTIVE] DISORDER (20) Neuropathy Code(s): G62.9 - POLYNEUROPATHY, UNSPECIFIED (21) Non compliance w medication regimen Code(s): Z91.14 - PATIENT'S OTHER NONCOMPLIANCE WITH MEDICATION REGIMEN (22) Total body pain Code(s): R52 - PAIN, UNSPECIFIED (23) Chronic abdominal pain Code(s): R10.9 - UNSPECIFIED ABDOMINAL PAIN G89.29 - OTHER CHRONIC PAIN Assessment/Plan Brovana Monitor off Symbicort for now (on Brovana) -> Can resume on D/C ABX per ID Medrol can likely be changed to Prednisone 40mg OD by tomorrow BD TX VTE prophylaxis Dr Castaneda Problem List - Problems (1) Acute exacerbation of COPD with asthma Code(s): J44.1 - CHRONIC OBSTRUCTIVE PULMONARY DISEASE W (ACUTE) EXACERBATION J45.901 - UNSPECIFIED ASTHMA WITH (ACUTE) EXACERBATION (2) Acute hypercapnic respiratory failure Code(s): J96.02 - ACUTE RESPIRATORY FAILURE WITH HYPERCAPNIA (3) Anemia Code(s): D64.9 - ANEMIA, UNSPECIFIED (4) Collapse of left lung Code(s): J98.11 - ATELECTASIS (5) Pneumonia Code(s): J18.9 - PNEUMONIA, UNSPECIFIED ORGANISM Qualifiers: Pneumonia type: due to unspecified organism Laterality: right Lung location: upper lobe of lung Qualified Code(s): J18.1 - Lobar pneumonia, unspecified organism (6) Acute and chronic respiratory failure Code(s): J96.20 - ACUTE AND CHR RESP FAILURE, UNSP W HYPOXIA OR HYPERCAPNIA Qualifiers: Respiratory failure complication: hypoxia Qualified Code(s): J96.21 - Acute and chronic respiratory failure with hypoxia (7) Anxiety Code(s): F41.9 - ANXIETY DISORDER, UNSPECIFIED (8) Bipolar 2 disorder Code(s): F31.81 - BIPOLAR II DISORDER (9) Chronic back pain Code(s): M54.9 - DORSALGIA, UNSPECIFIED G89.29 - OTHER CHRONIC PAIN (10) Chronic respiratory failure with hypoxia Code(s): J96.11 - CHRONIC RESPIRATORY FAILURE WITH HYPOXIA (11) Depression with anxiety Code(s): F41.8 - OTHER SPECIFIED ANXIETY DISORDERS (12) HTN (hypertension) Code(s): I10 - ESSENTIAL (PRIMARY) HYPERTENSION Qualifiers: (13) Hyperlipidemia Code(s): E78.5 - HYPERLIPIDEMIA, UNSPECIFIED (14) Opioid dependence Code(s): F11.20 - OPIOID DEPENDENCE, UNCOMPLICATED (15) Paroxysmal atrial fibrillation Code(s): I48.0 - PAROXYSMAL ATRIAL FIBRILLATION (16) Diabetes mellitus, insulin dependent (IDDM), uncontrolled Code(s): E10.65 - TYPE 1 DIABETES MELLITUS WITH HYPERGLYCEMIA (17) GERD (gastroesophageal reflux disease) Code(s): K21.9 - GASTRO-ESOPHAGEAL REFLUX DISEASE WITHOUT ESOPHAGITIS (18) Mood disorder Code(s): F39 - UNSPECIFIED MOOD [AFFECTIVE] DISORDER (19) Neuropathy Code(s): G62.9 - POLYNEUROPATHY, UNSPECIFIED (20) Non compliance w medication regimen Code(s): Z91.14 - PATIENT'S OTHER NONCOMPLIANCE WITH MEDICATION REGIMEN (21) Total body pain Code(s): R52 - PAIN, UNSPECIFIED
[2017-03-26] MEDS: ARFORMOTEROL TARTRATE 15 MCG/2 ML VIAL NEB SCH ×2 (12:20→22:40)
--- NOTE | 2017-03-26 14:19 | PN ---
Progress Note (short form) - Note Progress Note: Subjective: The patient was seen and examined at the bedside, she has no complaints at this time Current Medications Generic Name Dose Route Start Last Admin Trade Name Freq PRN Reason Stop Dose Admin Acetaminophen 650 mg 03/25/17 10:03 Tylenol - PO Q6H PRN FEVER OR PAIN Alprazolam 0.25 mg 03/24/17 22:00 03/26/17 09:24 Xanax - PO 0.25 mg BID [facility] Administration Arformoterol Tartrate 1 amp 03/26/17 12:00 03/26/17 12:20 Brovana (Restricted To Pulmonology/Resp) - NEB 1 amp BID [facility] Administration Chlorhexidine Gluconate 1 applic 03/24/17 22:00 03/25/17 22:49 Hibiclens For Decolonization - TP Not Given HS [facility] Diltiazem HCl 60 mg/ Diltiazem 90 mg 03/24/17 18:00 03/26/17 13:00 HCl 30 mg PO 90 mg Q6HPO [facility] Administration Heparin Sodium (Porcine) 5,000 unit 03/24/17 22:00 03/26/17 14:12 Heparin - SQ 5,000 unit TID [facility] Administration Piperacillin Sod/Tazobactam Sod 50 mls @ 100 mls/hr 03/24/17 18:00 03/26/17 09: 31 Zosyn 3.375gm Ivpb (Pre-Docked) IVPB 100 mls/hr Q8H-IV [facility] Administration Protocol Insulin Aspart 1 vial 03/24/17 16:30 03/26/17 12:13 Novolog Vial Sliding Scale - SQ 4 units ACHS [facility] Administration Protocol Insulin Detemir 5 units 03/24/17 22:00 03/26/17 06:06 Levemir Vial SQ 5 units BID@0700,2200 [facility] Administration Ipratropium [place] 1 amp 03/24/17 15:09 03/26/17 07:18 Atrovent 0.02% Nebulizer - NEB 1 amp Q6H PRN Administration WHEEZING Lidocaine 1 patch 03/25/17 10:00 03/26/17 09:29 Lidoderm Patch - TP Not Given DAILY [facility] Methylprednisolone Sodium Succinate 40 mg 03/24/17 22:00 03/26/17 09:30 Solu-Medrol - IVPB 40 mg BID [facility] Administration Oxycodone HCl 10 mg 03/24/17 22:00 03/26/17 09:24 Oxycontin - PO 10 mg BID [facility] Administration Pancrelipase 3 cap 03/24/17 17:30 03/26/17 12:17 Eamon Turner 6,000 Units Capsule PO Not Given TIDCM [facility] Polyethylene Glycol 17 gm 03/24/17 22:00 03/26/17 09:23 Miralax (For Daily Use) - PO 17 gm BID [facility] Administration Roflumilast 500 mcg 03/25/17 10:00 03/26/17 09:27 Daliresp - PO 500 mcg DAILY [facility] Administration Objective: Vital Signs Period Temp Pulse Resp BP Sys/Dan Pulse Ox Last 24 Hr 97.9 F-98.4 F 72-94 20-24 104-136/60-88 97-98 Physical Exam: General: NAD, A&Ox3 Lungs: Scattered rhonci throughout Heart: RRR, S1S2 Abd: Soft, non-tender, non-distended. Normoactive bowel sounds Ext: Able to move toes, unable to lift b/l lower extremities off the bed. 2+ DP/ PT bilaterally Neuro: No focal deficits CBCD WBC 4.1 K/mm3 (4.0-10.0) D 03/25/17 09:35 RBC 4.13 M/mm3 (3.60-5.2) 03/25/17 09:35 Hgb 11.1 GM/dL (10.7-15.3) D 03/25/17 09:35 Hct 32.5 % (32.4-45.2) 03/25/17 09:35 MCV 78.5 fl (80-96) L 03/25/17 09:35 MCHC 34.1 g/dl (32.0-36.0) 03/25/17 09:35 RDW 17.1 % (11.6-15.6) H 03/25/17 09:35 Plt Count 219 K/MM3 (134-434) 03/25/17 09:35 MPV 7.8 fl (7.5-11.1) 03/25/17 09:35 CMP Sodium 140 mmol/L (136-145) 03/26/17 08:25 Potassium 4.3 mmol/L (3.5-5.1) D 03/26/17 08:25 Chloride 104 mmol/L (98-107) 03/26/17 08:25 Carbon Dioxide 28 mmol/L (21-32) 03/26/17 08:25 Anion Gap 8 (8-16) 03/26/17 08:25 BUN 31 mg/dL (7-18) H 03/26/17 08:25 Creatinine 0.5 mg/dL (0.55-1.02) L D 03/26/17 08:25 Creat Clearance w eGFR > 60 (>60) 03/26/17 08:25 Random Glucose 156 mg/dL (74-106) H 03/26/17 08:25 Calcium 8.2 mg/dL (8.5-10.1) L 03/26/17 08:25 Total Bilirubin 0.5 mg/dL (0.2-1.0) D 03/26/17 08:25 AST 13 U/L (15-37) L 03/26/17 08:25 ALT 48 U/L (12-78) 03/26/17 08:25 Alkaline Phosphatase 204 U/L (45-117) H 03/26/17 08:25 Total Protein 6.0 g/dl (6.4-8.2) L 03/26/17 08:25 Albumin 3.0 g/dl (3.4-5.0) L 03/26/17 08:25 CARDIAC ENZYMES Creatine Kinase 40 IU/L (26-192) 03/20/17 23:50 Troponin I < 0.02 ng/ml (0.00-0.05) 03/20/17 23:50 Microbiology 03/21/17 00:40 Blood - Peripheral Venous Blood Culture - Final NO GROWTH AFTER 5 DAYS INCUBATION 03/21/17 00:40 Blood - Peripheral Venous Blood Culture - Final NO GROWTH AFTER 5 DAYS INCUBATION 03/23/17 11:40 Sputum - Endotrachea Suction/Ventilator Gram Stain - Final 03/23/17 11:40 Sputum - Endotrachea Suction/Ventilator Sputum Culture - Final Pseudo Fluorescens/[place] 03/21/17 07:30 Urine - Urine Titus Urine Culture - Final Assessment: This is a 51 year old female with PMHx of HTN, paroxysmal a.fib, NIDDM, asthma/COPD O2 dependent, previous trach (s/p removal), uterine cancer, anxiety/depression, bipolar disorder, chronic back pain, dependency to narcotics , recent admission for COPD exacerbation requiring two intubations, now here after being found unresponsive with respiratory failure and intubated in the field. Plan: 1) Pulmonary: Acute on chronic hypoxic respiratory failure - Extubated 03/23 - Supplemental O2 prn - Bipap overnight - Appreciate pulmonary consult Acute on Chronic COPD exacerbation - Continue IV steroids, taper - Continue Daliresp - Continue Brovana - Continue steroids 2) ID: Health care associated pneumonia - Short course of Zosyn (Day #5) - Sputum culture with psuedomonas fluorescens/putida - Appreciate ID consult 3) Hematology: Anemia - Hgb stable - Continue to monitor 4) Psych: Opioid dependence - Respiratory failure may have been 2/2 polypharmacy: patient was on large amounts of alprazolam, baclofen, benadryl, gabapentin, ambien, doxepin, and high doses of dilaudid for chronic back pain - Continue Oxycontin 10mg po bid - Acetaminophen prn - Appreciate pain management consult 5) Cardiology: Paroxysmal a.fib - Currently in sinus rhythm - Continue Cardizem - Not currently on anticoagulation 2/2 GI bleed on Plavix (see Gitleo's note 04/19) 6) Endocrine: NIDDM - Continue Levemir - BGM ACHS - ISS ACHS Hypothyroidism - TSH low, levothyroxine discontinued, will need repeat testing in 6 weeks 7) F/E/N: - Monitor electrolytes - Diabetic diet 8) Prophylaxis: - Heparin 5,000u sq tid - PT 9) Dispo: - Requires continued inpatient care CODE STATUS: FULL CODE Visit type - Emergency Visit Emergency Visit: Yes ED Registration Date: 03/21/17 Care time: The patient presented to the Emergency Department on the above date and was hospitalized for further evaluation of their emergent condition. - New Patient This patient is new to me today: No - Critical Care Critical Care patient: No
--- NOTE | 2017-03-26 15:17 | PN ---
Progress Note, Physician History of Present Illness: Awake, alert Reports occasional cough Afebrile WBC WNL - Current Medication List Current Medications: Active Medications Acetaminophen (Tylenol -) 650 mg PO Q6H PRN PRN Reason: FEVER OR PAIN Alprazolam (Xanax -) 0.25 mg PO BID [facility] Last Admin: 03/26/17 09:24 Dose: 0.25 mg Arformoterol Tartrate (Brovana (Restricted To Pulmonology/Resp) -) 1 amp NEB BID [facility] Last Admin: 03/26/17 12:20 Dose: 1 amp Chlorhexidine Gluconate (Hibiclens For Decolonization -) 1 applic TP HS [facility] Last Admin: 03/25/17 22:49 Dose: Not Given Diltiazem HCl 60 mg/ Diltiazem (HCl 30 mg) 90 mg PO Q6HPO [facility] Last Admin: 03/26/17 13:00 Dose: 90 mg Heparin Sodium (Porcine) (Heparin -) 5,000 unit SQ TID [facility] Last Admin: 03/26/17 14:12 Dose: 5,000 unit Piperacillin Sod/Tazobactam Sod (Zosyn 3.375gm Ivpb (Pre-Docked)) 50 mls @ 100 mls/hr IVPB Q8H-IV [facility] PRN Reason: Protocol Last Admin: 03/26/17 09:31 Dose: 100 mls/hr Insulin Aspart (Novolog Vial Sliding Scale -) 1 vial SQ ACHS [facility] PRN Reason: Protocol Last Admin: 03/26/17 12:13 Dose: 4 units Insulin Detemir (Levemir Vial) 5 units SQ BID@0700,2200 [facility] Last Admin: 03/26/17 06:06 Dose: 5 units Ipratropium [place] (Atrovent 0.02% Nebulizer -) 1 amp NEB Q6H PRN PRN Reason: WHEEZING Last Admin: 03/26/17 07:18 Dose: 1 amp Lidocaine (Lidoderm Patch -) 1 patch TP DAILY [facility] Last Admin: 03/26/17 09:29 Dose: Not Given Methylprednisolone Sodium Succinate (Solu-Medrol -) 40 mg IVPB BID [facility] Last Admin: 03/26/17 09:30 Dose: 40 mg Oxycodone HCl (Oxycontin -) 10 mg PO BID [facility] Last Admin: 05/04/17 09:24 Dose: 10 mg Pancrelipase (Creon Dr 6,000 Units Capsule) 3 cap PO TIDCM [facility] Last Admin: 03/26/17 12:17 Dose: Not Given Polyethylene Glycol (Miralax (For Daily Use) -) 17 gm PO BID [facility] Last Admin: 03/26/17 09:23 Dose: 17 gm Roflumilast (Daliresp -) 500 mcg PO DAILY [facility] Last Admin: 03/26/17 09:27 Dose: 500 mcg - Objective Vital Signs: Vital Signs Temperature 98.4 F 03/26/17 06:00 Pulse Rate 83 03/26/17 11:35 Respiratory Rate 20 03/26/17 06:00 Blood Pressure 104/60 03/26/17 06:00 O2 Sat by Pulse Oximetry (%) 97 03/26/17 11:35 Constitutional: Yes: No Distress Eyes: Yes: Conjunctiva Clear Cardiovascular: Yes: Regular Rate and Rhythm, S1, S2 Respiratory: Yes: Diminished Gastrointestinal: Yes: Normal Bowel Sounds, Soft, Abdomen, Obese. No: Tenderness Labs: CBC, BMP 03/25/17 09:35 03/26/17 08:25 Assessment/Plan S/P respiratory failure Possible pneumonia COPD exacerbation Hx + sputum c/s Pseudomonas Continue empiric zosyn Await c/s
[2017-03-26] MEDS: ONDANSETRON 4 MG/2 ML VIAL IVPB PRN (21:33)
[2017-03-26] MEDS: NYSTATIN POWDER 100,000 UNITS/GM - 15 GM TOPICAL POWDER TP SCH (21:34)
[2017-03-26] MEDS: CHLORHEXIDINE GLUCONATE 4% CLEANSER FOR DECOLONIZATION TP SCH (22:19)
[2017-03-27] MEDS: PIPERACILLIN/TAZOB 3.375 GM 50 ML IVPB SCH ×2 (02:09→10:56)
[2017-03-27] MEDS ORDERED: dilTIAZem HCL 30 MG TABLET (FP) ONE ×2 (05:33→12:01)
[2017-03-27] MEDS ORDERED: dilTIAZem HCL 60 MG TABLET (FP) ONE ×2 (05:33→12:02)
[2017-03-27] MEDS: HEPARIN NA (PORCINE) 5,000 UNITS/ML 1ML VIAL SQ SCH ×2 (06:20→14:10)
[2017-03-27] MEDS: INSULIN SLIDING SCALE (NOVOLOG) 1 VIAL SQ SCH ×2 (06:20→11:20)
[2017-03-27] MEDS: INSULIN DETEMIR 100 UNITS/ML MDV SQ SCH (06:21)
[2017-03-27] MEDS: DILTIAZEM 60 MG, DILTIAZEM 30 MG PO SCH ×2 (06:21→12:07)
[2017-03-27] MEDS: ONDANSETRON 4 MG/2 ML VIAL IVPB PRN (07:41)
[2017-03-27] MEDS: LIPASE/PROTEASE/AMYLASE 6,000 UNIT CAPSULE PO SCH ×2 (07:47→12:14)
[2017-03-27] MEDS ORDERED: PT OWN MED DRAWER 7, Y5N ONE (09:59)
[2017-03-27 10:11] LABS: MCH 26.7 pg (25.7-33.7); MEAN CELL VOLUME 80.9 fl (80-96); PLATELET COUNT 191 K/MM3 (134-434); RDW 16.9 % (11.6-15.6)
[2017-03-27] MEDS: oxyCODONE HCL 10 MG SUSTAINED ACTING TABLET PO SCH (10:12)
[2017-03-27] MEDS: ALPRAZolam 0.25 MG TABLET PO SCH (10:12)
[2017-03-27] MEDS: ROFLUMILAST 500 MCG TABLET PO SCH (10:13)
[2017-03-27] MEDS: methylPREDNISolone NA SUCC 40 MG/1 ML VIAL IVPB SCH (10:14)
[2017-03-27] MEDS: NYSTATIN POWDER 100,000 UNITS/GM - 15 GM TOPICAL POWDER TP SCH (10:15)
[2017-03-27] MEDS: LIDOCAINE 5% TOPICAL PATCH TP SCH (10:16)
[2017-03-27] MEDS: POLYETHYLENE GLYCOL 3350 119 GM BTL PO SCH (10:25)
[2017-03-27] MEDS: ARFORMOTEROL TARTRATE 15 MCG/2 ML VIAL NEB SCH (10:26)
[2017-03-27 10:45] LABS: ALBUMIN 2.8 g/dl (3.4-5.0); ALK PHOS 173 U/L (45-117); ANION GAP 7 (8-16); BILIRUBIN,TOTAL 0.6 mg/dL (0.2-1.0); CALCIUM 8.1 mg/dL (8.5-10.1); CO2 31 mmol/L (21-32); COCKROFT - GAULT 151.0535; CREATININE 0.4 mg/dL (0.55-1.02); GLUCOSE,RANDOM 212 mg/dL (74-106); MAGNESIUM 2.2 mg/dL (1.8-2.4); PHOSPHOROUS 3.2 mg/dL (2.5-4.9); SGOT/AST 8 U/L (15-37); SGPT/ALT 39 U/L (12-78); TOT PROT 5.5 g/dl (6.4-8.2)
[2017-03-27 11:02] VITALS: TEMP 97.7
[2017-03-27 12:10] VITALS: BP 117/73; PULSE 76
--- NOTE | 2017-03-27 12:21 | PN ---
Progress Note (short form) - Note Progress Note: PULMONARY WELL KNOWN BY OUR SERVICE SUBJECTIVE IMPROVEMENT VSS/AFEBRILE ANICTERIC CLEAR B/L ANTERIOR BREATH SOUNDS S1S2 BS+ LESS EDEMA LABS/MEDS/NOTES/IMAGING/REVIEWED Acute on Chronic Hypoxic and Hypercapneic Respiratory Failure improving Hypokalemia Acute COPD Exacerbation Paroxysmal Atrial Fibrillation HTN DM Morbid Obeisty Anemia Chronic Pain Syndrome/Opiate Dependent - continue antibiotics per ID - medrol taper - replete K+ - inhaled bronchodilators - O2 to keep SpO2 >90% - BiPAP at night and PRN during day - rate controlled - monitor H/H - snf upon discharge - DVT/GI prophylaxis Sreedhar SEXTON MD
--- NOTE | 2017-03-27 12:28 | PN ---
Progress Note, Physician History of Present Illness: Awake , alert Occasional cough, difficulty expectorating No fever/ chills WBC WNL - Current Medication List Current Medications: Active Medications Acetaminophen (Tylenol -) 650 mg PO Q6H PRN PRN Reason: FEVER OR PAIN Alprazolam (Xanax -) 0.25 mg PO BID [facility] Last Admin: 03/27/17 10:12 Dose: 0.25 mg Arformoterol Tartrate (Brovana (Restricted To Pulmonology/Resp) -) 1 amp NEB BID [facility] Last Admin: 03/27/17 10:26 Dose: 1 amp Chlorhexidine Gluconate (Hibiclens For Decolonization -) 1 applic TP HS [facility] Last Admin: 03/26/17 22:19 Dose: 1 applic Diltiazem HCl 60 mg/ Diltiazem (HCl 30 mg) 90 mg PO Q6HPO [facility] Last Admin: 03/27/17 12:07 Dose: 90 mg Heparin Sodium (Porcine) (Heparin -) 5,000 unit SQ TID [facility] Last Admin: 03/27/17 06:20 Dose: 5,000 unit Piperacillin Sod/Tazobactam Sod (Zosyn 3.375gm Ivpb (Pre-Docked)) 50 mls @ 100 mls/hr IVPB Q8H-IV [facility] PRN Reason: Protocol Last Admin: 03/27/17 10:56 Dose: 100 mls/hr Insulin Aspart (Novolog Vial Sliding Scale -) 1 vial SQ ACHS [facility] PRN Reason: Protocol Last Admin: 03/27/17 11:20 Dose: 6 units Insulin Detemir (Levemir Vial) 5 units SQ BID@0700,2200 [facility] Last Admin: 03/27/17 06:21 Dose: 5 units Ipratropium [place] (Atrovent 0.02% Nebulizer -) 1 amp NEB Q6H PRN PRN Reason: WHEEZING Last Admin: 03/26/17 17:56 Dose: 1 amp Lidocaine (Lidoderm Patch -) 1 patch TP DAILY [facility] Last Admin: 03/27/17 10:16 Dose: Not Given Methylprednisolone Sodium Succinate (Solu-Medrol -) 40 mg IVPB BID [facility] Last Admin: 03/27/17 10:14 Dose: 40 mg Nystatin (Nystop Powder -) 1 applic TP DAILY [facility] Last Admin: 03/27/17 10:15 Dose: 1 applic Ondansetron HCl (Zofran Injection) 4 mg IVPB Q8H PRN PRN Reason: NAUSEA AND/OR VOMITING Last Admin: 03/27/17 07:41 Dose: 4 mg Oxycodone HCl (Oxycontin -) 10 mg PO BID [facility] Last Admin: 03/27/17 10:12 Dose: 10 mg Pancrelipase (Creon Dr 6,000 Units Capsule) 3 cap PO TIDCM [facility] Last Admin: 03/27/17 12:14 Dose: Not Given Polyethylene Glycol (Miralax (For Daily Use) -) 17 gm PO BID [facility] Last Admin: 03/27/17 10:25 Dose: 17 gm Roflumilast (Daliresp -) 500 mcg PO DAILY [facility] Last Admin: 03/27/17 10:13 Dose: 500 mcg - Objective Vital Signs: Vital Signs Temperature 97.7 F 03/27/17 10:00 Pulse Rate 76 03/27/17 12:09 Respiratory Rate 20 03/27/17 12:09 Blood Pressure 117/73 03/27/17 12:09 O2 Sat by Pulse Oximetry (%) 99 03/27/17 10:25 Constitutional: Yes: No Distress Eyes: Yes: Conjunctiva Clear Cardiovascular: Yes: Regular Rate and Rhythm Respiratory: Yes: Regular, Rhonchi Gastrointestinal: Yes: Normal Bowel Sounds, Soft, Abdomen, Obese. No: Tenderness Edema: No Labs: CBC, BMP 03/27/17 09:30 03/27/17 09:30 Assessment/Plan S/P respiratory failure Possible pneumonia COPD exacerbation Hx + sputum c/s Pseudomonas Substitute po levaquin 500mg qd x 7d
[2017-03-27] MEDS ORDERED: LEVOFLOXACIN 500 MG TABLET (FP) PO SCH (13:00)
[2017-03-27 13:16] LABS: METAMYELOCYTE 1 % (0-2); PLATELET ESTIMATE ADEQUATE (NORMAL)
[2017-03-27 13:17] LABS: ANISOCYTOSIS 1+; HYPOCHROMIA 1+; MICROCYTOSIS 1+; POLYCHROMASIA 1+
[2017-03-27] MEDS: IPRATROPIUM BR 0.02% 0.5 MG/2.5 ML VIAL.NEB. NEB PRN (14:21)
--- NOTE | 2017-03-27 14:36 | DS ---
Physical Exam: SUBJECTIVE: Patient seen and examined at bedside. Calm, cooperative. Anxious about going back to [facility]. Reviewed all medications. OBJECTIVE: Vital Signs Period Temp Pulse Resp BP Sys/Dan Pulse Ox Last 24 Hr 97.7 F-98.7 F 76-93 18-22 114-134/71-89 97-100 PHYSICAL EXAM GENERAL: The patient is awake, alert, and fully oriented, in no acute distress. NEUROLOGICAL: Cranial nerves II through XII grossly intact. Normal speech, gait not observed. LUNGS: Scattered end-expiratory wheezing HEART: Regular rate and rhythm, S1, S2 without murmur, rub or gallop. ABDOMEN: Soft, nontender, nondistended, normoactive bowel sounds, no guarding, no rebound EXTREMITIES: 2+ pulses, warm, well-perfused, no edema. Laboratory Results - last 24 hr 03/23/17 03/26/17 03/26/17 07:45 17:39 22:15 WBC RBC Hgb Hct MCV MCHC RDW Plt Count MPV Neutrophils % Lymphocytes % Monocytes % Band Neutrophils Metamyelocytes Myelocytes Platelet Estimate Platelet Comment Polychromasia Hypochromic-Microcytic Basophilic Stippling Anisocytosis Microcytosis Sodium Potassium Chloride Carbon Dioxide Anion Gap BUN Creatinine Creat Clearance w eGFR POC Glucometer 197 208 Random Glucose Calcium Phosphorus Magnesium Total Bilirubin AST ALT Alkaline Phosphatase Total Protein Albumin Blood Type A POSITIVE Antibody Screen Negative Crossmatch See Detail 03/27/17 03/27/17 03/27/17 06:16 09:30 09:30 WBC 4.0 RBC 3.76 Hgb 10.0 L Hct 30.4 L MCV 80.9 MCHC 33.0 RDW 16.9 H Plt Count 191 MPV 8.0 Neutrophils % 79.0 Lymphocytes % 9.0 Monocytes % 6.0 Band Neutrophils 2.0 D Metamyelocytes 1 D Myelocytes 3 H D Platelet Estimate Adequate Platelet Comment No clumping noted Polychromasia 1+ Hypochromic-Microcytic 1+ Basophilic Stippling 1+ Anisocytosis 1+ Microcytosis 1+ Sodium 140 Potassium 3.9 Chloride 102 Carbon Dioxide 31 Anion Gap 7 L BUN 31 H Creatinine 0.4 L Creat Clearance w eGFR > 60 POC Glucometer 183 Random Glucose 212 H D Calcium 8.1 L Phosphorus 3.2 Magnesium 2.2 Total Bilirubin 0.6 AST 8 L D ALT 39 Alkaline Phosphatase 173 H Total Protein 5.5 L Albumin 2.8 L Blood Type Antibody Screen Crossmatch HOSPITAL COURSE: Date of Admission:03/21/17 Date of Discharge: 03/27/17 51 year-old female with a PMH of HTN, paroxysmal afib, NIDDM, asthma/COPD O2 dependent, previous tracheostomy (closed), uterine cancer, anxiety/depression/ bipolar disorder, chronic back pain and a dependency on narcotics. Admitted to [facility] 02/24-03/16/17 for COPD exacerbation and pseudomonas pneumonia. Hospital course was complicated by acute hypoxic and hypercapnic respiratory failure requiring two intubations. Patient was discharged on 03/16 to [facility]. ON 03/21 patient was found unresponsive in the [place]. She was intubated by EMS and brought to the ED. Acute on chronic hypercapnic and hypoxic respiratory failure, resolved --extubated 03/23 --BIPAP overnight Health care associated pneumonia Possible aspiration pneumonia Acute on chronic COPD exacerbation --patchy RUL, RML, and RLL infiltrates on CT (left lung opacified at time of imaging) --Zosyn x 7 days --discharged on PO levaquin x 7 days --treated with IV steroids, discharged on PO taper Opioid dependency Polypharmacy Anxiety, depression, chronic pain --strong suspicion that respiratory failure was due, at least in part, to polypharmacy; patient has tenuous respiratory function at baseline, and she takes a large amount of sedating medications: alprazolam, baclofen, benadryl, gabapentin, ambien, doxepin, and high doses of dilaudid for chronic back pain --patient demands narcotics and if she does not get it she is abusive to the staff; she exhibits drug-seeking behavior --we weaned patient off baclofen, benadryl, gabapentin, ambien, doxepin, and dilaudid --she is being discharged on oxycontin 10mg BID, xanax BID --patient's mood is much improved; much less combative; calm, able to have a conversation; concerned about her health, expresses desire to get better Lactic acidosis, resolved Paroxysmal afib --in sinus rhythm this admission --metoprolol was stopped due to pulmonary issues --continue cardizem CD 360mg daily --[id number] score 3; not on anticoagulation secondary to a previous GI bleed on plavix (see Dr. Gomez's note 04/19/16) Anemia --h/h stable --last transfused 03/23 --no bleeding episodes --patient refused guiaic testing Hypertension --continued cardizem at higher dose IDDM --Levemir 5mg BID --Novolog sliding scale coverage Hypothroidism --TSH low, patient tachycardic; stopped levothyroxine; will need repeat level in 6 weeks F/E/N Fluids: PO intake adequate Electrolytes: repleted as indicated Nutrition: diabetic, low sodium Minutes to complete discharge: 35 Discharge Summary Reason For Visit: ACUTE RESPIRATORY FAILURE/ANEMIA/PNEUMONIA Current Active Problems Acute exacerbation of COPD with asthma (Acute) Acute hypercapnic respiratory failure (Acute) Acute on chronic respiratory failure with hypoxia and hypercapnia (Acute) Anemia (Acute) Collapse of left lung (Acute) Pneumonia (Acute) Pneumonia involving right lung (Acute) Respiratory failure (Acute) Acute and chronic respiratory failure (Chronic) Anxiety (Chronic) Bipolar 2 disorder (Chronic) COPD (chronic obstructive pulmonary disease) case management patient (Chronic) Chronic back pain (Chronic) Chronic respiratory failure with hypoxia (Chronic) Depression with anxiety (Chronic) Drug abuse and dependence (Chronic) Gastritis (Chronic) HTN (hypertension) (Chronic) Hyperlipidemia (Chronic) Opioid dependence (Chronic) Paroxysmal atrial fibrillation (Chronic) - Instructions Referrals: Manolo Jaquez [Primary Care Provider] - Disposition: [facility] - Home Medications Comprehensive Discharge Medication List: Ambulatory Orders Levothyroxine [Synthroid -] 25 mcg PO DAILY@0700 tablet 06/05/16 Albuterol 2.5/Ipratropium 0.5 [Duoneb -] 1 amp NEB Q4HPO amp 09/17/16 Alprazolam [Xanax] 0.25 mg PO BID tablet MDD 2 09/17/16 Budesonide/Formeterol Fumarate [SYMBICORT 160/4.5mcg -] 2 inh PO BID 11/01/16 Insulin Sliding Scale [Novolog Vial Sliding Scale -] 0 units SQ ACHS PRN Lactobacillus Acidophilus [Bacid -] 1 tab PO BID tab 11/20/16 Ondansetron [Zofran -] 4 mg PO Q4H PRN #0 tablet 11/20/16 Zinc Oxide 1 applic TP BID tube 11/20/16 Cholecalciferol (Vitamin D3) [Vitamin D3 -] 2,000 unit PO DAILY #30 tab Albuterol Sulfate Inhaler - [Ventolin HFA Inhaler -] 2 puff IH Q4H PRN #0 inhaler 11/29/16 Mometasone Furoate [Asmanex 220Mcg -] 2 puff IH DAILY inhaler 03/16/17 Omeprazole Magnesium [Prilosec] 20 mg PO BID 03/21/17 Acetaminophen [Tylenol .Regular Strength -] 650 mg PO Q6H PRN #0 tablet Alprazolam [Xanax] 0.25 mg PO BID tablet MDD 2 03/27/17 Budesonide/Formeterol Fumarate [SYMBICORT 80/4.5mcg -] 2 puff IH BID #1 inhaler 03/27/17 Diltiazem Cd [Cardizem Cd -] 360 mg PO DAILY #30 tab 03/27/17 Insulin (Levemir) [Levemir Vial] 5 units SQ BID@0700,2200 #5 unit 03/27/17 Insulin Sliding Scale [Novolog Vial Sliding Scale -] 1 vial SQ ACHS units 03/27 Ipratropium 0.02% Nebulizer [Atrovent 0.02% Nebulizer -] 1 amp NEB QID #0 amp Levofloxacin [Levaquin -] 500 mg PO DAILY #7 tablet 03/27/17 Lidocaine 5% Patch [Lidoderm -] 1 patch TP DAILY patch 03/27/17 Lipase/Protease/Amylase [Eamon Turner 6,000 Units Capsule] 3 cap PO TIDCM #90 cap Nystatin Powder [Nystop Powder -] 1 applic TP DAILY applic 03/27/17 Oxycodone Sr [Oxycontin] 10 mg PO BID #60 tab MDD 20mg 03/27/17 Polyethylene Glycol 3350 [Miralax 119 gm Btl -] 17 gm PO BID bottle 03/27/17 Prednisone 10 mg PO DAILY #41 tablet 03/27/17 Roflumilast [Daliresp -] 500 mcg PO DAILY tablet 03/27/17 This patient is new to me today: No Emergency Visit: Yes ED Registration Date: 03/21/17 Care time: The patient presented to the Emergency Department on the above date and was hospitalized for further evaluation of their emergent condition. Critical Care patient: No - Discharge Referral Referred to [facility] No
[2017-03-28] MEDS ORDERED: LEVOFLOXACIN 500 MG TABLET (FP) PO SCH (10:00)
== END 2017-03-27 16:27 | DRG 208 ==
LOC: JER 23:19 → JERBED 03-21 04:57 → JICU 03-21 07:57 → J5S 03-24 16:13
PROVIDERS: ADMIT Internal Medicine; ATTEND Nurse Practitioner Acute Care
PROC: 0BH17EZ Insertion of Endotracheal Airway into Trachea, Via Natural or Artificial Opening (ICD-10-PCS; principal; 2017-03-22)
PROC: 5A1945Z Respiratory Ventilation, 24-96 Consecutive Hours (ICD-10-PCS; 2017-03-22)
PROC: 30233N1 Transfusion of Nonautologous Red Blood Cells into Peripheral Vein, Percutaneous Approach (ICD-10-PCS; 2017-03-23)
PROC: 0BP1XDZ Removal of Intraluminal Device from Trachea, External Approach (ICD-10-PCS; 2017-03-24)
DX: J96.22 Acute and chronic respiratory failure with hypercapnia (principal); J69.0 Pneumonitis due to inhalation of food and vomit; J44.1 Chronic obstructive pulmonary disease with (acute) exacerbation; F31.81 Bipolar II disorder; J98.11 Atelectasis; F11.20 Opioid dependence, uncomplicated; E87.2 Acidosis; J96.21 Acute and chronic respiratory failure with hypoxia; D64.9 Anemia, unspecified; I48.91 Unspecified atrial fibrillation; E78.00 Pure hypercholesterolemia, unspecified; E03.9 Hypothyroidism, unspecified; R00.0 Tachycardia, unspecified; E11.65 Type 2 diabetes mellitus with hyperglycemia; N28.9 Disorder of kidney and ureter, unspecified; I10 Essential (primary) hypertension; M54.5 Low back pain; F41.8 Other specified anxiety disorders; K21.9 Gastro-esophageal reflux disease without esophagitis; G89.29 Other chronic pain; M54.16 Radiculopathy, lumbar region; M96.1 Postlaminectomy syndrome, not elsewhere classified; Y83.8 Other surgical procedures as the cause of abnormal reaction of the patient, or of later complication, without mention of misadventure at the time of the procedure; E87.6 Hypokalemia; E11.40 Type 2 diabetes mellitus with diabetic neuropathy, unspecified; Z91.14 Patient's other noncompliance with medication regimen; Z90.710 Acquired absence of both cervix and uterus; Z85.42 Personal history of malignant neoplasm of other parts of uterus; Z87.891 Personal history of nicotine dependence; Z99.81 Dependence on supplemental oxygen; Z79.4 Long term (current) use of insulin
CPT/HCPCS: 31500; 36415; 36430; 36600; 71010-TC; 71275-TC; 80048; 80053; 82550; 82803; 83036; 83605; 83735; 83880; 84100; 84443; 84484; 85025; 85027; 86850; 86900; 86901; 86922; 87040; 87070; 87086; 87186; 87205; 93005; 93010; 94002; 94640; 94660; 97161-GP; 99285-25; J1644; P9038; P9058

== ENCOUNTER 2017-04-07 15:52 | Emergency (ER) | payer OTHER ==
[2017-04-07 16:11] VITALS: TEMP 98.1; BMI 25.0
--- NOTE | 2017-04-07 17:07 | PDOC ---
History of Present Illness - History of Present Illness Initial Comments: 04/07/17 19:49 Patient is a 51 year old female from [facility] with significant medical hx of anemia, COPD (O2 dependent), collapse of the left lung, PNA, chronic respiratory railure, hypercapnia, asthma, HTN, DM, opiate dependence, paroxysmal AFib, hypothyroidism, uterine CA, renal insufficiency s/p stents, bipolar stage II, depression, and chronic back pain who is presenting to the ED with nausea, vomiting and abdominal pain for three days. The patient complains associated abdominal distention. She also has a complaint of lower extremity stiffness to both legs. She is requesting pain medication. Denies any fevers, chills, diarrhea, blood in stool or emesis. The patient was recently discharged from admission on 03/27/17. Allergies: Blueberries, aspirin, oxycodone, fentanyl Surgical Hx: Bowel resection, appendectomy, back sx T6,7 PMD: Manolo Jaquez MD <Samreen Cid - Last Filed: 04/07/17 19:56> <Brie Schultz - Last Filed: 04/08/17 02:31> - General Chief Complaint: Nausea/Vomiting Stated Complaint: Nausea/Vomiting Time Seen by Provider: 04/07/17 16:59 Past History <Samreen Cid - Last Filed: 04/07/17 19:56> - Past Medical History Anemia: Yes Asthma: Yes (COPD) Cancer: Yes (UTERINE) Cardiac Disorders: Yes (A-fib) CVA: No COPD: Yes CHF: No Dementia: No Diabetes: Yes GI Disorders: Yes (colitis, SB resection,) Disorders: Yes (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) HTN: Yes Hypercholesterolemia: Yes Liver Disease: No Suicide Attempt (Hx): No Seizures: Yes (5 yrs ago had a seizure ( zofran and reglan given together as per patient) Thyroid Disease: No - Surgical History Abdominal Surgery: Yes (BOWEL RESECTION) Appendectomy: Yes (removed 1998) Cardiac Surgery: No Cholecystectomy: No Lung Surgery: No Neurologic Surgery: No Orthopedic Surgery: Yes (Back Sx T7,6) - Immunization History Td Vaccination: Yes TDAP Vaccination: Yes Immunization Up to Date: Yes - Psycho/Social/Smoking Cessation Hx Anxiety: No Suicidal Ideation: No Smoking Status: No Smoking History: Former smoker Have you smoked in the past 12 months: No Number of Cigarettes Smoked Daily: 3 If you are a former smoker, when did you quit?: 10/11/14 Information on smoking cessation initiated: No 'Breaking Loose' booklet given: 03/12/15 Hx Alcohol Use: No Drug/Substance Use Hx: No Substance Use Type: None Hx Substance Use Treatment: No <Brie Schultz - Last Filed: 04/08/17 02:31> - Past Medical History Allergies/Adverse Reactions: Allergies Allergy/AdvReac Type Severity Reaction Status Date / Time oxycodone [Oxycodone] Allergy Severe Nausea Verified 04/07/17 16:11 oxycodone HCl [From Percocet] Allergy Severe Nausea Verified 04/07/17 16:11 aspirin Allergy Mild Verified 04/07/17 16:11 blueberry [Blueberry] Allergy Mild Swelling Verified 04/07/17 16:11 fentanyl Allergy Verified 04/07/17 16:11 Home Medications: Ambulatory Orders Levothyroxine [Synthroid -] 25 mcg PO DAILY@0700 tablet 06/05/16 Albuterol 2.5/Ipratropium 0.5 [Duoneb -] 1 amp NEB Q4HPO amp 09/17/16 Alprazolam [Xanax] 0.25 mg PO BID tablet MDD 2 09/17/16 Budesonide/Formeterol Fumarate [SYMBICORT 160/4.5mcg -] 2 inh PO BID 11/01/16 Insulin Sliding Scale [Novolog Vial Sliding Scale -] 0 units SQ ACHS PRN Lactobacillus Acidophilus [Bacid -] 1 tab PO BID tab 11/20/16 Ondansetron [Zofran -] 4 mg PO Q4H PRN #0 tablet 11/20/16 Zinc Oxide 1 applic TP BID tube 11/20/16 Cholecalciferol (Vitamin D3) [Vitamin D3 -] 2,000 unit PO DAILY #30 tab Albuterol Sulfate Inhaler - [Ventolin HFA Inhaler -] 2 puff IH Q4H PRN #0 inhaler 11/29/16 Mometasone Furoate [Asmanex 220Mcg -] 2 puff IH DAILY inhaler 03/16/17 Omeprazole Magnesium [Prilosec] 20 mg PO BID 03/21/17 Acetaminophen [Tylenol .Regular Strength -] 650 mg PO Q6H PRN #0 tablet Alprazolam [Xanax] 0.25 mg PO BID tablet MDD 2 03/27/17 Budesonide/Formeterol Fumarate [SYMBICORT 80/4.5mcg -] 2 puff IH BID #1 inhaler 03/27/17 Diltiazem Cd [Cardizem Cd -] 360 mg PO DAILY #30 tab 03/27/17 Insulin (Levemir) [Levemir Vial] 5 units SQ BID@0700,2200 #5 unit 03/27/17 Insulin Sliding Scale [Novolog Vial Sliding Scale -] 1 vial SQ ACHS units 03/27 Ipratropium 0.02% Nebulizer [Atrovent 0.02% Nebulizer -] 1 amp NEB QID #0 amp Levofloxacin [Levaquin -] 500 mg PO DAILY #7 tablet 03/27/17 Lidocaine 5% Patch [Lidoderm -] 1 patch TP DAILY patch 03/27/17 Lipase/Protease/Amylase [Creon Dr 6,000 Units Capsule] 3 cap PO TIDCM #90 cap Nystatin Powder [Nystop Powder -] 1 applic TP DAILY applic 03/27/17 Oxycodone Sr [Oxycontin] 10 mg PO BID #60 tab MDD 20mg 03/27/17 Polyethylene Glycol 3350 [Miralax 119 gm Btl -] 17 gm PO BID bottle 03/27/17 Prednisone 10 mg PO DAILY #41 tablet 03/27/17 Roflumilast [Daliresp -] 500 mcg PO DAILY tablet 03/27/17 Review of Systems - Review of Systems Comments:: 04/07/17 19:53 CONSTITUTIONAL: Absent: fever, chills, diaphoresis, generalized weakness, malaise, loss of appetite HEENT: Absent: rhinorrhea, nasal congestion, throat pain, throat swelling, difficulty swallowing, mouth swelling, ear pain, eye pain, visual changes CARDIOVASCULAR: Absent: chest pain, syncope, palpitations, irregular heart rate, lightheadedness , peripheral edema RESPIRATORY: Absent: cough, shortness of breath, dyspnea with exertion, orthopnea, wheezing, stridor, hemoptysis GASTROINTESTINAL: Present: abdominal pain, abdominal distention, nausea, vomiting Absent: diarrhea, constipation, melena, hematochezia GENITOURINARY: Absent: dysuria, frequency, urgency, hesitancy, hematuria, flank pain, genital pain MUSCULOSKELETAL: Present: leg stiffness Absent: myalgia, arthralgia, joint swelling SKIN: Absent: rash, itching, pallor HEMATOLOGIC/IMMUNOLOGIC: Absent: easy bleeding, easy bruising, lymphadenopathy, frequent infections ENDOCRINE: Absent: unexplained weight gain, unexplained weight loss, heat intolerance, cold intolerance NEUROLOGIC: Absent: headache, focal weakness or paresthesia, dizziness, unsteady gait, seizure, mental status changes, bladder or bowel incontinence. PSYCHIATRIC: Absent: anxiety, depression, suicidal or homicidal ideation, hallucinations <Samreen Cid - Last Filed: 04/07/17 19:56> *Physical Exam - Vital Signs Last Vital Signs Temp Pulse Resp BP Pulse Ox 98.1 F 117 H 18 123/92 100 04/07/17 16:00 04/07/17 16:00 04/07/17 16:00 04/07/17 16:00 04/07/17 16:00 - Physical Exam Comments: 04/07/17 19:53 GENERAL: Well developed, well nourished. Awake and alert. No acute distress. HEENT: Normocephalic, atraumatic. PERRLA, EOMI. No conjunctival pallor. Sclera are non- icteric. Moist mucous membranes. Oropharynx is clear. NECK: Supple. Full ROM. No JVD. Carotid pulses 2+ and symmetric, without bruits. No thyromegaly. No lymphadenopathy. CARDIOVASCULAR: Regular rate and rhythm. No murmurs, rubs, or gallops. Distal pulses are 2+ and symmetric. PULMONARY: No evidence of respiratory distress. Lungs clear to auscultation bilaterally. No wheezing, rales or rhonchi. ABDOMINAL: Soft. Non-tender. Slightly distended. No rebound or guarding. No organomegaly. Normoactive bowel sounds. MUSCULOSKELETAL: Normal range of motion at all joints. No bony deformities or tenderness. No CVA tenderness. EXTREMITIES: No cyanosis. No clubbing. No edema. No calf tenderness. SKIN: Warm and dry. Normal capillary refill. No rashes. No jaundice. NEUROLOGICAL: Alert, awake, appropriate. Cranial nerves 2-12 intact. Normal speech. PSYCHIATRIC: Cooperative. Good eye contact. Appropriate mood and affect. <Samreen Cid - Last Filed: 04/07/17 19:56> - Vital Signs Last Vital Signs Temp Pulse Resp BP Pulse Ox 98.1 F 117 H 18 123/92 100 04/07/17 16:00 04/07/17 16:00 04/07/17 16:00 04/07/17 16:00 04/07/17 16:00 <Brie Schultz - Last Filed: 04/08/17 02:31> ED Treatment Course - LABORATORY CBC & Chemistry Diagram: 04/07/17 18:31 04/07/17 18:31 - ADDITIONAL ORDERS Additional order review: Laboratory Results 04/07/17 04/07/17 18:42 18:31 Sodium 142 Potassium 2.7 L* D Chloride 98 Carbon Dioxide 32 Anion Gap 12 BUN 13 D Creatinine 0.3 L D Creat Clearance w eGFR > 60 Random Glucose 117 H D Calcium 8.2 L Total Bilirubin 0.6 AST 10 L D ALT 24 D Alkaline Phosphatase 275 H D Total Protein 5.9 L Albumin 3.2 L Lipase 69 L Urine Color Yellow Urine Appearance Clear Urine pH 6.0 Urine Protein Negative Urine Glucose (UA) Negative Urine Ketones Negative Urine Blood Negative Urine Nitrite Negative Urine Bilirubin Negative Urine Urobilinogen 4.0 e.u/dl H Ur Leukocyte Esterase Negative 04/07/17 18:31 RBC 4.22 MCV 82.8 MCHC 32.6 RDW 19.7 H D MPV 7.6 Neutrophils % Y Lymphocytes % Y - RADIOLOGY Radiograph Interpretation: 04/07/17 19:56 Abdomen X-Ray Impression: No significant fecal impaction. Reported By: Truong Loving MD <Samreen Cid - Last Filed: 04/07/17 19:56> - LABORATORY CBC & Chemistry Diagram: 04/07/17 18:31 04/08/17 01:15 <Brie Schultz - Last Filed: 04/08/17 02:31> Medical Decision Making - Medical Decision Making 04/08/17 02:29 This 51-year-old female has a long history of chronic pain. She presents today with complaint of distended abdomen, abdominal pain, and lower leg tightness. On exam, she has a soft abdomen with no rebound or guarding. She said that she had been vomiting all day. However, she had no vomiting in the emergency department during her observation stay and also her labs do not reflect any dehydration or acidosis. Patient was found to have a potassium that was 2.7, and this was supplemented. Abdominal radiograph was obtained and it did not show any fecal impaction or evidence of small bowel obstruction -pt discharged back to longterm <Brie Schultz - Last Filed: 04/08/17 02:31> *DC/Admit/Observation/Transfer - Attestations Scribe Attestion: 04/07/17 19:54 Documentation prepared by Samreen Cid, acting as medical surgery nurse for Brie Schultz MD. <Samreen Cid - Last Filed: 04/07/17 19:56> <Brie Schultz - Last Filed: 04/08/17 02:31> Diagnosis at time of Disposition: Anxiety, Total body pain, Hypokalemia - Discharge Dispostion Disposition: HOME Condition at time of disposition: Stable - Referrals Referrals: Manolo Jaquez [Primary Care Provider] - - Patient Instructions Printed Discharge Instructions: DI for Hypokalemia Additional Instructions: -this patient received potassium supplement for a potassium of 2.7 REPEAT LABS SHOW POTASSIUM IS NORMAL at 3.9
[2017-04-07 18:59] LABS: MCHC 32.6 g/dl (32.0-36.0); MEAN CELL VOLUME 82.8 fl (80-96); MEAN PLT VOLUME 7.6 fl (7.5-11.1); PLATELET COUNT 311 K/MM3 (134-434); RDW 19.7 % (11.6-15.6); WHITE BLOOD COUNT 6.9 K/mm3 (4.0-10.0)
[2017-04-07 19:02] LABS: URINE APPEARANCE CLEAR; URINE BILIRUBIN NEGATIVE (NEGATIVE); URINE BLOOD NEGATIVE (NEGATIVE); URINE COLOR YELLOW; URINE GLUCOSE (UA) NEGATIVE (NEGATIVE); URINE KETONE NEGATIVE (NEGATIVE); URINE LEUK ESTERASE NEGATIVE (NEGATIVE); URINE NITRITE NEGATIVE (NEGATIVE); URINE PROTEIN NEGATIVE (NEGATIVE); URINE UROBILINOGEN 4.0 E.U/dl E.U./dl (0.2-1.0)
[2017-04-07 19:24] LABS: ALBUMIN 3.2 g/dl (3.4-5.0); ALK PHOS 275 U/L (45-117); ANION GAP 12 (8-16); BILIRUBIN,TOTAL 0.6 mg/dL (0.2-1.0); CALCIUM 8.2 mg/dL (8.5-10.1); CO2 32 mmol/L (21-32); COCKROFT - GAULT 201.4075; CREATININE 0.3 mg/dL (0.55-1.02); GLUCOSE,RANDOM 117 mg/dL (74-106); SGOT/AST 10 U/L (15-37); SGPT/ALT 24 U/L (12-78); TOT PROT 5.9 g/dl (6.4-8.2)
[2017-04-07] MEDS ORDERED: POTASSIUM CHLORIDE TABS 20 MEQ TABLET.ER (FP) PO ONE (19:59)
[2017-04-07] MEDS ORDERED: ALBUTEROL SO4 2.5/IPRATROPIUM 0.5 INH SOL 3 ML VIAL.NEB. NEB ONE (20:48)
[2017-04-07] MEDS ORDERED: ONDANSETRON 4 MG/2 ML VIAL ONE (20:48)
[2017-04-07] MEDS ORDERED: ONDANSETRON 4 MG/2 ML VIAL IVPUSH ONE (21:02)
[2017-04-07] MEDS ORDERED: ALBUTEROL SO4 0.5 % INH SOLN 2.5 MG/0.5 ML VIAL.NEB. NEB ONE (21:03)
[2017-04-07] MEDS ORDERED: POTASSIUM CHLORIDE ORAL LIQUID 20 MEQ/15 ML PO ONE (23:20)
[2017-04-07] MEDS ORDERED: ALPRAZolam 0.25 MG TABLET PO ONE (23:44)
[2017-04-07] MEDS ORDERED: oxyCODONE HCL 10 MG SUSTAINED ACTING TABLET PO ONE (23:45)
[2017-04-07] MEDS ORDERED: ALPRAZolam 0.25 MG TABLET ONE (23:47)
[2017-04-07] MEDS ORDERED: oxyCODONE HCL 10 MG SUSTAINED ACTING TABLET ONE (23:47)
[2017-04-08] MEDS ORDERED: POTASSIUM CHLORIDE ORAL LIQUID 20 MEQ/15 ML ONE (00:46)
[2017-04-08] MEDS ORDERED: POTASSIUM CHLORIDE ORAL LIQUID 20 MEQ/15 ML PO ONE (00:51)
[2017-04-08] MEDS ORDERED: RANITIDINE HCL 50 MG/2 ML VIAL ONE (01:15)
[2017-04-08 03:14] VITALS: BP 116/84; PULSE 92
--- NOTE | 2017-04-08 12:21 | EKG ---
Test Reason : Blood Pressure : / mmHG Vent. Rate : 115 BPM Atrial Rate : 115 BPM P-R Int : 142 ms QRS Dur : 082 ms QT Int : 334 ms P-R-T Axes : 046 005 007 degrees QTc Int : 462 ms SINUS TACHYCARDIA WITH PREMATURE ATRIAL COMPLEXES POSSIBLE LEFT ATRIAL ENLARGEMENT POSSIBLE INFERIOR INFARCT , AGE UNDETERMINED ABNORMAL ECG WHEN COMPARED WITH ECG OF 21-MAR-2017 09:57, BORDERLINE CRITERIA FOR INFERIOR INFARCT ARE NOW PRESENT Confirmed by FANNY KLEIN MD ([id number]) on 04/08/2017 12:21:22 PM Referred By: Confirmed By:FANNY KLEIN MD
== END 2017-04-08 03:14 | disposition home or self-care (01) ==
LOC: JER 15:52
PROC: 3E0F7GC Introduction of Other Therapeutic Substance into Respiratory Tract, Via Natural or Artificial Opening (ICD-10-PCS; principal; 2017-04-07)
PROC: 3E033GC Introduction of Other Therapeutic Substance into Peripheral Vein, Percutaneous Approach (ICD-10-PCS; 2017-04-07)
DX: E87.6 Hypokalemia (principal); F41.9 Anxiety disorder, unspecified; R52 Pain, unspecified; I10 Essential (primary) hypertension; E11.9 Type 2 diabetes mellitus without complications; Z79.4 Long term (current) use of insulin; I48.91 Unspecified atrial fibrillation; Z79.01 Long term (current) use of anticoagulants; E03.9 Hypothyroidism, unspecified; F31.81 Bipolar II disorder; F41.8 Other specified anxiety disorders; F11.20 Opioid dependence, uncomplicated; J44.9 Chronic obstructive pulmonary disease, unspecified; Z99.81 Dependence on supplemental oxygen
CPT/HCPCS: 36415; 74000-TC; 80053; 81003; 83690; 84132; 85025; 87086; 93005; 93010; 94640; 96374; 99284-25

== ENCOUNTER 2017-04-12 10:59 | Emergency (ER) | payer OTHER ==
[2017-04-12 11:12] VITALS: TEMP 98.3; BMI 26.2
--- NOTE | 2017-04-12 11:23 | PDOC ---
History of Present Illness - General History Source: Patient, Old Records Exam Limitations: No Limitations - History of Present Illness Initial Comments: 04/12/17 11:40 The patient is a 51-year-old woman, [facility], with a significant past medical history of hypertension, hypercholesterolemia, paroxysmal atrial fibrillation, anemia, uterine Ca, renal insufficiency status post stets, asthma , chronic obstructive pulmonary disease (O2 dependent), collapse of the left lung, pneumonia, chronic respiratory failure, hypercapnia, hypothyroidism, diabetes mellitus, colitis, small bowel obstruction, seizure disorder, bipolar stage II, depression, chronic back pain and opiate dependence who presents to the emergency department via EMS for further evaluation of persistent abdominal pain, nausea and diarrhea. Patient states that she was in this ED, approximately 2 days ago for the same symptoms. She states that upon discharge, m she felt better but had a salad with tomatoes, onions and shredded cheddar cheese and since then, she has persistently vomiting. Last emesis episode was approximately 1 hour prior to ER arrival. No blood, non bile appearing. She also expresses her chronic back/leg pain. She states that her narcotics are not working because she is unable to tolerate PO, thus enhancing her chronic pain. No fevers, chills, chest pain, lightheadedness, dizziness, visual changes, headaches. No urinary complaints. Allergies: Oxycodone. Aspirin. Fentanyl. Blueberry Past Surgical History: Bowel resection, Appendectomy, Hysterectomy, Back Surgery (T6-T7) Social History: Lives at [facility] Current someday smoker ( approximately 3 cigarettes/day). No EtOH use. No recreational drug use. Primary Care Physician: Dr. Cornelio Salas <Priscila Albrecht - Last Filed: 04/12/17 14:01> <David Mohr - Last Filed: 04/12/17 14:34> - General Chief Complaint: Nausea/Vomiting Stated Complaint: NAUSEA & VOMITING Time Seen by Provider: 04/12/17 11:22 Past History <Priscila Albrecht - Last Filed: 04/12/17 14:01> - Past Medical History Anemia: Yes Asthma: Yes (COPD) Cancer: Yes (UTERINE) Cardiac Disorders: Yes (A-fib) CVA: No COPD: Yes CHF: No Dementia: No Diabetes: Yes GI Disorders: Yes (colitis, SB resection,) Disorders: Yes (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) HTN: Yes Hypercholesterolemia: Yes Liver Disease: No Suicide Attempt (Hx): No Seizures: Yes (5 yrs ago had a seizure ( zofran and reglan given together as per patient) Thyroid Disease: No - Surgical History Abdominal Surgery: Yes (BOWEL RESECTION) Appendectomy: Yes (removed 1998) Cardiac Surgery: No Cholecystectomy: No Lung Surgery: No Neurologic Surgery: No Orthopedic Surgery: Yes (Back Sx T7,6) - Immunization History Td Vaccination: Yes TDAP Vaccination: Yes Immunization Up to Date: Yes - Psycho/Social/Smoking Cessation Hx Anxiety: No Suicidal Ideation: No Smoking Status: No Smoking History: Former smoker Have you smoked in the past 12 months: No Number of Cigarettes Smoked Daily: 3 If you are a former smoker, when did you quit?: 10/11/14 Information on smoking cessation initiated: No 'Breaking Loose' booklet given: 03/12/15 Hx Alcohol Use: No Drug/Substance Use Hx: No Substance Use Type: None Hx Substance Use Treatment: No <David Mohr - Last Filed: 04/12/17 14:34> - Past Medical History Allergies/Adverse Reactions: Allergies Allergy/AdvReac Type Severity Reaction Status Date / Time oxycodone [Oxycodone] Allergy Severe Nausea Verified 04/12/17 11:12 oxycodone HCl [From Percocet] Allergy Severe Nausea Verified 04/12/17 11:12 aspirin Allergy Mild Verified 04/12/17 11:12 blueberry [Blueberry] Allergy Mild Swelling Verified 04/12/17 11:12 fentanyl Allergy Verified 04/12/17 11:12 Home Medications: Ambulatory Orders Levothyroxine [Synthroid -] 25 mcg PO DAILY@0700 tablet 06/05/16 Albuterol 2.5/Ipratropium 0.5 [Duoneb -] 1 amp NEB Q4HPO amp 09/17/16 Alprazolam [Xanax] 0.25 mg PO BID tablet MDD 2 09/17/16 Budesonide/Formeterol Fumarate [SYMBICORT 160/4.5mcg -] 2 inh PO BID 11/01/16 Insulin Sliding Scale [Novolog Vial Sliding Scale -] 0 units SQ ACHS PRN Lactobacillus Acidophilus [Bacid -] 1 tab PO BID tab 11/20/16 Ondansetron [Zofran -] 4 mg PO Q4H PRN #0 tablet 11/20/16 Zinc Oxide 1 applic TP BID tube 11/20/16 Cholecalciferol (Vitamin D3) [Vitamin D3 -] 2,000 unit PO DAILY #30 tab Albuterol Sulfate Inhaler - [Ventolin HFA Inhaler -] 2 puff IH Q4H PRN #0 inhaler 11/29/16 Mometasone Furoate [Asmanex 220Mcg -] 2 puff IH DAILY inhaler 03/16/17 Omeprazole Magnesium [Prilosec] 20 mg PO BID 03/21/17 Acetaminophen [Tylenol .Regular Strength -] 650 mg PO Q6H PRN #0 tablet Alprazolam [Xanax] 0.25 mg PO BID tablet MDD 2 03/27/17 Budesonide/Formeterol Fumarate [SYMBICORT 80/4.5mcg -] 2 puff IH BID #1 inhaler 03/27/17 Diltiazem Cd [Cardizem Cd -] 360 mg PO DAILY #30 tab 03/27/17 Insulin (Levemir) [Levemir Vial] 5 units SQ BID@0700,2200 #5 unit 03/27/17 Insulin Sliding Scale [Novolog Vial Sliding Scale -] 1 vial SQ ACHS units 03/27 Ipratropium 0.02% Nebulizer [Atrovent 0.02% Nebulizer -] 1 amp NEB QID #0 amp Levofloxacin [Levaquin -] 500 mg PO DAILY #7 tablet 03/27/17 Lidocaine 5% Patch [Lidoderm -] 1 patch TP DAILY patch 03/27/17 Lipase/Protease/Amylase [Creon Dr 6,000 Units Capsule] 3 cap PO TIDCM #90 cap Nystatin Powder [Nystop Powder -] 1 applic TP DAILY applic 03/27/17 Oxycodone Sr [Oxycontin] 10 mg PO BID #60 tab MDD 20mg 03/27/17 Polyethylene Glycol 3350 [Miralax 119 gm Btl -] 17 gm PO BID bottle 03/27/17 Prednisone 10 mg PO DAILY #41 tablet 03/27/17 Roflumilast [Daliresp -] 500 mcg PO DAILY tablet 03/27/17 Review of Systems - Review of Systems Able to Perform ROS?: Yes Comments:: 04/12/17 12:42 GENERAL/CONSTITUTIONAL: No fever or chills. No weakness. HEAD, EYES, EARS, NOSE AND THROAT: No change in vision. No ear pain or discharge. No sore throat. CARDIOVASCULAR: No chest pain or shortness of breath. RESPIRATORY: No cough, wheezing, or hemoptysis. GASTROINTESTINAL: Yes: Abdominal Pain, Nausea, Vomiting. No diarrhea or constipation. GENITOURINARY: No dysuria, frequency, or change in urination. MUSCULOSKELETAL: Yes: Leg Pain. No neck or back pain. SKIN: No rash NEUROLOGIC: No headache, vertigo, loss of consciousness, or change in strength/ sensation. ENDOCRINE: No increased thirst. No abnormal weight change. HEMATOLOGIC/LYMPHATIC: No anemia, easy bleeding, or history of blood clots. ALLERGIC/IMMUNOLOGIC: No hives or skin allergy. <Priscila Albrecht - Last Filed: 04/12/17 14:01> *Physical Exam - Vital Signs Last Vital Signs Temp Pulse Resp BP Pulse Ox 98.3 F 111 H 18 109/71 100 04/12/17 11:06 04/12/17 11:06 04/12/17 11:06 04/12/17 11:06 04/12/17 11:06 - Physical Exam Comments: 04/12/17 12:46 GENERAL: Awake, alert, and fully oriented, in no acute distress HEAD: No signs of trauma EYES: PERRLA, EOMI, sclera anicteric, conjunctiva clear ENT: Auricles normal inspection, hearing grossly normal, nares patent, oropharynx clear without exudates. Moist mucosa NECK: Normal ROM, supple, no lymphadenopathy, JVD, or masses LUNGS: Breath sounds equal, clear to auscultation bilaterally. No wheezes, and no crackles HEART: Regular rate and rhythm, normal S1 and S2, no murmurs, rubs or gallops ABDOMEN: Soft, nontender, normoactive bowel sounds. No guarding, no rebound. No masses EXTREMITIES: Normal range of motion, no edema. No clubbing or cyanosis. No cords, erythema, or tenderness NEUROLOGICAL: Cranial nerves II through XII grossly intact. Normal speech. <Priscila Albrecht - Last Filed: 04/12/17 14:01> - Vital Signs Last Vital Signs Temp Pulse Resp BP Pulse Ox 98.3 F 111 H 18 109/71 100 04/12/17 11:06 04/12/17 11:06 04/12/17 11:06 04/12/17 11:06 04/12/17 11:06 <David Mohr - Last Filed: 04/12/17 14:34> Heart Score/ECG Review #1 ECG reviewed & interpreted by me at: 11:13 04/12/17 11:13 Reviewed and interpreted by Dr. David Mohr IMPRESSION: Sinus tachycardia with a rate of 108 bpm with premature atrial complexes. <Priscila Albrecht - Last Filed: 04/12/17 14:01> Medical Decision Making - Medical Decision Making 04/12/17 12:24 The patient is a 51-year-old woman, [facility], with a significant past medical history of hypertension, hypercholesterolemia, paroxysmal atrial fibrillation, anemia, uterine Ca, renal insufficiency status post stets, asthma , chronic obstructive pulmonary disease (O2 dependent), collapse of the left lung, pneumonia, chronic respiratory failure, hypercapnia, hypothyroidism, diabetes mellitus, colitis, small bowel obstruction, seizure disorder, bipolar stage II, depression, chronic back pain and opiate dependence who presents to the emergency department via EMS for further evaluation of persistent abdominal pain, nausea and diarrhea. Patient states that she was in this ED, approximately 2 days ago for the same symptoms. She states that upon discharge, m she felt better but had a salad with tomatoes, onions and shredded cheddar cheese and since then, she has persistently vomiting. Last emesis episode was approximately 1 hour prior to ER arrival. No blood, non bile appearing. She also expresses her chronic back/leg pain. She states that her narcotics are not working because she is unable to tolerate PO, thus enhancing her chronic pain. Will give Phenerghan, Reglan, Zofran and Benadryl IM. Will give oral Xanax. <Priscila Albrecht - Last Filed: 04/12/17 14:01> *DC/Admit/Observation/Transfer - Attestations Scribe Attestion: 04/12/17 12:28 Documentation prepared by Priscila Albrecht, acting as medical billing specialist for David Mohr DO. <Priscila Albrecht - Last Filed: 04/12/17 14:01> - Discharge Dispostion Admit: No - Attestations Physician Attestion: 04/12/17 11:23 I, Dr. David Mohr, attest that this document has been prepared under my direction and personally reviewed by me in its entirety. I further attest, that it accurately reflects all work, treatment, procedures and medical decision -making performed by me. <David Mohr - Last Filed: 04/12/17 14:34> Diagnosis at time of Disposition: Depression with anxiety, Bipolar 2 disorder, Anxiety Opioid dependence Qualifiers: Substance use status: uncomplicated Qualified Code(s): F11.20 - Opioid dependence, uncomplicated Gastritis Qualifiers: Gastritis type: unspecified gastritis Chronicity: unspecified Gastritis bleeding: without bleeding Qualified Code(s): K29.70 - Gastritis, unspecified, without bleeding - Discharge Dispostion Disposition: HOME Condition at time of disposition: Guarded - Referrals Referrals: Manolo Jaquez [Primary Care Provider] - - Patient Instructions Printed Discharge Instructions: DI for Nausea -- Adult, DI for Vomiting -- Adult Additional Instructions: [place]- Sorry that you are having this problem again. [facility] doctors at the [facility] have to try a new medicine regimen, so that you can tolerate the nausea that your dilaudid is causing. All narcotics cause GI upset and Nausea as well as itching and dry mouth. Talk to your doctors in the morning. You should be good for tonight. Best- Dr. David Mohr
[2017-04-12] MEDS ORDERED: HYDROmorphone HCL CARPU-JECT 2 MG/1 ML DISP.SYRIN IM PRN (12:07)
[2017-04-12] MEDS ORDERED: PROMETHAZINE HCL 25 MG/1 ML VIAL IM ONE (12:07)
[2017-04-12] MEDS ORDERED: METOCLOPRAMIDE HCL INJECTION 10 MG/2 ML VIAL IM ONE (12:07)
[2017-04-12] MEDS ORDERED: PROMETHAZINE HCL 50 MG/1 ML AMP IM ONE (12:30)
[2017-04-12] MEDS ORDERED: METOCLOPRAMIDE HCL INJECTION 10 MG/2 ML VIAL ONE (12:32)
[2017-04-12] MEDS ORDERED: HYDROmorphone HCL CARPU-JECT 2 MG/1 ML DISP.SYRIN ONE (12:32)
[2017-04-12] MEDS ORDERED: RANITIDINE HCL 150 MG/10 ML UNIT-DOSE CUP PO ONE (13:54)
[2017-04-12] MEDS ORDERED: HYDROmorphone HCL 2 MG TABLET PO ONE (13:54)
[2017-04-12] MEDS ORDERED: ONDANSETRON *ODT* 4 MG TABLET SL ONE (13:56)
[2017-04-12] MEDS ORDERED: HYDROmorphone HCL 2 MG TABLET ONE (14:22)
[2017-04-12] MEDS ORDERED: ONDANSETRON 8 MG TABLET (FP) PO ONE (14:23)
[2017-04-12] MEDS ORDERED: RANITIDINE HCL 150 MG TABLET (FP) ONE (14:23)
[2017-04-12 17:38] VITALS: BP 122/74; PULSE 78
--- NOTE | 2017-04-15 12:45 | EKG ---
Test Reason : Blood Pressure : / mmHG Vent. Rate : 108 BPM Atrial Rate : 108 BPM P-R Int : 122 ms QRS Dur : 082 ms QT Int : 332 ms P-R-T Axes : 043 007 026 degrees QTc Int : 444 ms SINUS TACHYCARDIA WITH PREMATURE ATRIAL COMPLEXES OTHERWISE NORMAL ECG WHEN COMPARED WITH ECG OF 07-APR-2017 18:12, NO SIGNIFICANT CHANGE WAS FOUND Confirmed by FANNY KLEIN MD ([id number]) on 04/15/2017 12:45:31 PM Referred By: Confirmed By:FANNY KLEIN MD
== END 2017-04-12 17:00 ==
LOC: JER 10:59
PROC: 3E023NZ Introduction of Analgesics, Hypnotics, Sedatives into Muscle, Percutaneous Approach (ICD-10-PCS; principal; 2017-04-12)
PROC: 3E023GC Introduction of Other Therapeutic Substance into Muscle, Percutaneous Approach (ICD-10-PCS; 2017-04-12)
PROC: 3E023GC Introduction of Other Therapeutic Substance into Muscle, Percutaneous Approach (ICD-10-PCS; 2017-04-12)
PROC: 3E023GC Introduction of Other Therapeutic Substance into Muscle, Percutaneous Approach (ICD-10-PCS; 2017-04-12)
DX: K29.70 Gastritis, unspecified, without bleeding (principal); F41.8 Other specified anxiety disorders; F31.81 Bipolar II disorder; F11.20 Opioid dependence, uncomplicated; I10 Essential (primary) hypertension; E78.00 Pure hypercholesterolemia, unspecified; I48.0 Paroxysmal atrial fibrillation; Z79.01 Long term (current) use of anticoagulants; D64.9 Anemia, unspecified; J96.12 Chronic respiratory failure with hypercapnia; Z99.81 Dependence on supplemental oxygen; J44.9 Chronic obstructive pulmonary disease, unspecified; G40.909 Epilepsy, unspecified, not intractable, without status epilepticus; E03.9 Hypothyroidism, unspecified; E11.9 Type 2 diabetes mellitus without complications; Z79.4 Long term (current) use of insulin
CPT/HCPCS: 93005; 93010; 96372; 99282-25

== ENCOUNTER 2017-04-16 12:43 | Emergency (ER) | payer OTHER ==
[2017-04-16] MEDS ORDERED: ALBUTEROL SO4 2.5/IPRATROPIUM 0.5 INH SOL 3 ML VIAL.NEB. NEB ONE ×2 (12:56→13:27)
[2017-04-16 13:08] VITALS: BMI 25.0
[2017-04-16 13:47] VITALS: TEMP 100.1
[2017-04-16 13:51] LABS: BASOPHIL 0.1 % (0-2.0); MCH 27.5 pg (25.7-33.7); MCHC 33.2 g/dl (32.0-36.0); MEAN CELL VOLUME 82.9 fl (80-96); MEAN PLT VOLUME 7.2 fl (7.5-11.1); PLATELET COUNT 284 K/MM3 (134-434); RDW 19.4 % (11.6-15.6); WHITE BLOOD COUNT 10.2 K/mm3 (4.0-10.0)
[2017-04-16] MEDS ORDERED: ACETAMINOPHEN 325 MG TABLET (FP) PO ONE (13:52)
--- NOTE | 2017-04-16 13:56 | PDOC ---
*Physical Exam - Vital Signs Last Vital Signs Temp Pulse Resp BP Pulse Ox 100.1 F H 134 H 26 H 120/66 98 04/16/17 13:42 04/16/17 13:04 04/16/17 13:04 04/16/17 13:04 04/16/17 13:04 ED Treatment Course - LABORATORY CBC & Chemistry Diagram: 04/16/17 13:03 04/16/17 13:03 - Medications Given in the ED: ED Medications Discontinued Medications Generic Name Dose Route Start Last Admin Trade Name Freq PRN Reason Stop Dose Admin Albuterol/Ipratropium 1 amp 04/16/17 12:56 04/16/17 13:25 Duoneb - NEB 04/16/17 12:57 1 amp ONCE ONE Administration Medical Decision Making - Medical Decision Making 04/16/17 13:47 Pt seen by the Advanced Practice Provider under my direct supervision Ancillary studies reviewed I agree with plan as outlined by the Advanced Practice Provider PRUDENCE Sandy *DC/Admit/Observation/Transfer Diagnosis at time of Disposition: Acute wheezy bronchitis - Discharge Dispostion Disposition: HOME Condition at time of disposition: Good - Referrals Referrals: Manolo Jaquez [Primary Care Provider] - - Patient Instructions Printed Discharge Instructions: DI for Acute Bronchitis Additional Instructions: Take your albuterol inhaler or nebulizer as needed for discomfort. Take azithromycin as prescribed. Follow-up physician at the facility.
[2017-04-16] MEDS ORDERED: methylPREDNISolone NA SUCC 125 MG/2 ML VIAL IVPB ONE (13:59)
[2017-04-16] MEDS ORDERED: ACETAMINOPHEN 325 MG TABLET (FP) ONE (13:59)
--- NOTE | 2017-04-16 13:59 | PDOC ---
History of Present Illness - General Chief Complaint: Shortness of Breath Stated Complaint: FLU LIKE SYMPTOMS Time Seen by Provider: 04/16/17 12:49 History Source: Patient Exam Limitations: No Limitations - History of Present Illness Initial Comments: 04/16/17 13:36 51-year-old female with history of COPD, uterine cancer, A. fib, COPD, diabetes , hypertension, dyslipidemia, anxiety, and acid reflux presents with cough congestion and shortness of breath with exertion. Patient also states has chills without recorded temperature. Timing/Duration: reports: yesterday Severity: reports: moderate Possible Cause: Yes: occasional episodes Modifying Factors: improves with: coughing Associated Symptoms: reports: cough, fever/chills (chills), shortness of breath (mild), wheezing Past History - Past Medical History Allergies/Adverse Reactions: Allergies Allergy/AdvReac Type Severity Reaction Status Date / Time oxycodone [Oxycodone] Allergy Severe Nausea Verified 04/16/17 13:04 oxycodone HCl [From Percocet] Allergy Severe Nausea Verified 04/16/17 13:04 aspirin Allergy Mild Verified 04/16/17 13:04 blueberry [Blueberry] Allergy Mild Swelling Verified 04/16/17 13:04 fentanyl Allergy Verified 04/16/17 13:04 Home Medications: Ambulatory Orders Levothyroxine [Synthroid -] 25 mcg PO DAILY@0700 tablet 06/05/16 Albuterol 2.5/Ipratropium 0.5 [Duoneb -] 1 amp NEB Q4HPO amp 09/17/16 Budesonide/Formeterol Fumarate [SYMBICORT 160/4.5mcg -] 2 inh PO BID 11/01/16 Lactobacillus Acidophilus [Bacid -] 1 tab PO BID tab 11/20/16 Ondansetron [Zofran -] 4 mg PO Q4H PRN #0 tablet 11/20/16 Zinc Oxide 1 applic TP BID tube 11/20/16 Cholecalciferol (Vitamin D3) [Vitamin D3 -] 2,000 unit PO DAILY #30 tab Albuterol Sulfate Inhaler - [Ventolin HFA Inhaler -] 2 puff IH Q4H PRN #0 inhaler 11/29/16 Mometasone Furoate [Asmanex 220Mcg -] 2 puff IH DAILY inhaler 03/16/17 Omeprazole Magnesium [Prilosec] 20 mg PO BID 03/21/17 Acetaminophen [Tylenol .Regular Strength -] 650 mg PO Q6H PRN #0 tablet Alprazolam [Xanax] 0.25 mg PO BID tablet MDD 2 03/27/17 Diltiazem Cd [Cardizem Cd -] 360 mg PO DAILY #30 tab 03/27/17 Insulin (Levemir) [Levemir Vial] 5 units SQ BID@0700,2200 #5 unit 03/27/17 Insulin Sliding Scale [Novolog Vial Sliding Scale -] 1 vial SQ ACHS units 03/27 Ipratropium 0.02% Nebulizer [Atrovent 0.02% Nebulizer -] 1 amp NEB QID #0 amp Lidocaine 5% Patch [Lidoderm -] 1 patch TP DAILY patch 03/27/17 Lipase/Protease/Amylase [Eamon Dr 6,000 Units Capsule] 3 cap PO TIDCM #90 cap Nystatin Powder [Nystop Powder -] 1 applic TP DAILY applic 03/27/17 Oxycodone Sr [Oxycontin] 10 mg PO BID #60 tab MDD 20mg 03/27/17 Polyethylene Glycol 3350 [Miralax 119 gm Btl -] 17 gm PO BID bottle 03/27/17 Prednisone 10 mg PO DAILY #41 tablet 03/27/17 Roflumilast [Daliresp -] 500 mcg PO DAILY tablet 03/27/17 Anemia: Yes Asthma: Yes (COPD) Cancer: Yes (UTERINE) Cardiac Disorders: Yes (A-fib) CVA: No COPD: Yes CHF: No Dementia: No Diabetes: Yes GI Disorders: Yes (colitis, SB resection, GERD) Disorders: Yes (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) HTN: Yes Hypercholesterolemia: Yes Liver Disease: No Psychiatric Problems: Yes (ANXIETY) Suicide Attempt (Hx): No Seizures: Yes (5 yrs ago had a seizure ( zofran and reglan given together as per patient) Thyroid Disease: No - Surgical History Abdominal Surgery: Yes (BOWEL RESECTION) Appendectomy: Yes (removed 1998) Cardiac Surgery: No Cholecystectomy: No Lung Surgery: No Neurologic Surgery: No Orthopedic Surgery: Yes (Back Sx T7,6) - Immunization History Td Vaccination: Yes TDAP Vaccination: Yes Immunization Up to Date: Yes - Psycho/Social/Smoking Cessation Hx Anxiety: No Suicidal Ideation: No Smoking Status: No Smoking History: Former smoker Have you smoked in the past 12 months: No Number of Cigarettes Smoked Daily: 3 If you are a former smoker, when did you quit?: 2013 Information on smoking cessation initiated: No 'Breaking Loose' booklet given: 03/12/15 Hx Alcohol Use: No Drug/Substance Use Hx: No Substance Use Type: None Hx Substance Use Treatment: No Patient Lives Alone: No Lives with/in: detention Respiratory Specific PMHX - Complaint Specific PMHX Bronchitis: Yes Review of Systems - Review of Systems Able to Perform ROS?: Yes Constitutional: Yes: Chills HEENTM: No: Symptoms Reported Respiratory: Yes: Cough, Shortness of Breath, Productive cough (yellowish) Cardiac (ROS): No: Symptoms Reported ABD/GI: No: Symptoms Reported : No: Symptoms Reported Musculoskeletal: No: Symptoms Reported Integumentary: No: Symptoms Reported Neurological: No: Symptoms reported *Physical Exam - Vital Signs Last Vital Signs Temp Pulse Resp BP Pulse Ox 100.1 F H 134 H 26 H 120/66 98 04/16/17 13:42 04/16/17 13:04 04/16/17 13:04 04/16/17 13:04 04/16/17 13:04 - Physical Exam General Appearance: Yes: Nourished, Appropriately Dressed. No: Apparent Distress HEENT: positive: EOMI, AYESHA, TMs Normal, Pharynx Normal. negative: Pale Conjunctivae Neck: positive: Supple Respiratory/Chest: positive: Wheezing (with rhonchi and wheezing to bilateral bases). negative: Respiratory Distress, Accessory Muscle Use Cardiovascular: positive: Regular Rhythm, Tachycardia. negative: Murmur Gastrointestinal/Abdominal: positive: Soft. negative: Tenderness Extremity: positive: Normal Capillary Refill. negative: Pedal Edema Integumentary: positive: Normal Color, Warm, Moist Neurologic: positive: Motor Strength 5/5. negative: Normal Mood/Affect (anxious ) ED Treatment Course - LABORATORY CBC & Chemistry Diagram: 04/16/17 13:03 04/16/17 13:03 - RADIOLOGY Radiology Studies Ordered: Category Date Time Status CHEST X-RAY PORTABLE* [RAD] Stat Radiology 04/16/17 12:54 Ordered - Medications Given in the ED: ED Medications Discontinued Medications Generic Name Dose Route Start Last Admin Trade Name Divya PRN Reason Stop Dose Admin Albuterol/Ipratropium 1 amp 04/16/17 12:56 04/16/17 13:25 Duoneb - NEB 04/16/17 12:57 1 amp ONCE ONE Administration Medical Decision Making - Medical Decision Making 04/16/17 13:58 Patient here with cough congestion and chills Since yesterday. Patient on exam did have inspiratory crackles with rhonchi and wheezing. Patient ordered for septic workup DuoNeb and steroids 04/16/17 15:23 Chest x-ray overall negative although patient had shallow inspiration chest x- ray is unchanged from previous noted 03/24/2017 Laboratory Tests 04/16/17 04/16/17 04/16/17 13:03 13:03 13:03 WBC 10.2 H D Hgb 11.7 Hct 35.3 RDW 19.4 H MPV 7.2 L Neutrophils % 94.0 H D Sodium 140 Potassium 3.4 L Chloride 96 L Carbon Dioxide 34 H Anion Gap 10 BUN 9 D Creatinine 0.3 L Creat Clearance w eGFR > 60 Random Glucose 116 H Lactic Acid 0.9 Calcium 8.3 L ALT 16 D Alkaline Phosphatase 229 H Creatine Kinase 15 L Troponin I < 0.02 04/16/17 16:27 Laboratory Tests 04/16/17 15:30 Urine Ketones Negative Urine Blood Negative Urine Nitrite Negative Ur Leukocyte Esterase Negative Will repeat vitals and if normal, will discharge home with azithromycin. *DC/Admit/Observation/Transfer Diagnosis at time of Disposition: Acute wheezy bronchitis - Discharge Dispostion Disposition: HOME Condition at time of disposition: Good - Patient Instructions Printed Discharge Instructions: DI for Acute Bronchitis Additional Instructions: Take your albuterol inhaler or nebulizer as needed for discomfort. Take azithromycin as prescribed. Follow-up physician at the facility.
[2017-04-16] MEDS ORDERED: methylPREDNISolone NA SUCC 125 MG/2 ML VIAL ONE (14:09)
[2017-04-16 14:20] LABS: ALBUMIN 2.8 g/dl (3.4-5.0); ANION GAP 10 (8-16); BILIRUBIN,TOTAL 0.5 mg/dL (0.2-1.0); CALCIUM 8.3 mg/dL (8.5-10.1); CO2 34 mmol/L (21-32); COCKROFT - GAULT 201.4075; CREATININE 0.3 mg/dL (0.55-1.02); GLUCOSE,RANDOM 116 mg/dL (74-106); SGOT/AST 7 U/L (15-37); SGPT/ALT 16 U/L (12-78); TOT PROT 5.5 g/dl (6.4-8.2)
[2017-04-16 14:22] LABS: ALK PHOS 229 U/L (45-117); TROPONIN I < 0.02 ng/ml (0.00-0.05)
[2017-04-16] MEDS ORDERED: HYDROmorphone HCL CARPU-JECT 2 MG/1 ML DISP.SYRIN IVPUSH ONE (15:26)
[2017-04-16] MEDS ORDERED: HYDROmorphone HCL CARPU-JECT 1 MG/1 ML DISP.SYRIN ONE (15:33)
[2017-04-16 15:50] LABS: URINE APPEARANCE CLEAR; URINE BILIRUBIN NEGATIVE (NEGATIVE); URINE BLOOD NEGATIVE (NEGATIVE); URINE COLOR STRAW; URINE GLUCOSE (UA) NEGATIVE (NEGATIVE); URINE KETONE NEGATIVE (NEGATIVE); URINE LEUK ESTERASE NEGATIVE (NEGATIVE); URINE NITRITE NEGATIVE (NEGATIVE); URINE PROTEIN NEGATIVE (NEGATIVE); URINE UROBILINOGEN NEGATIVE E.U./dl (0.2-1.0)
--- NOTE | 2017-04-16 16:00 | EKG ---
Test Reason : Blood Pressure : / mmHG Vent. Rate : 129 BPM Atrial Rate : 129 BPM P-R Int : 118 ms QRS Dur : 080 ms QT Int : 306 ms P-R-T Axes : 033 004 032 degrees QTc Int : 448 ms SINUS TACHYCARDIA WITH PREMATURE ATRIAL COMPLEXES POSSIBLE ANTERIOR INFARCT , AGE UNDETERMINED ABNORMAL ECG WHEN COMPARED WITH ECG OF 12-APR-2017 11:13, NO SIGNIFICANT CHANGE WAS FOUND Confirmed by NICK CODY MD ([id number]) on 04/16/2017 4:00:21 PM Referred By: Confirmed By:NICK CODY MD
[2017-04-16] MEDS ORDERED: ONDANSETRON 4 MG/2 ML VIAL IVPUSH ONE (17:16)
[2017-04-16] MEDS ORDERED: ONDANSETRON 4 MG/2 ML VIAL ONE (17:17)
[2017-04-16 17:25] VITALS: BP 115/78; PULSE 110
--- NOTE | 2017-04-18 12:51 | PDOC ---
Patient Follow-up (Call Back) - Post ED Follow - Up Reason for Call Back: Abnwl. Microbiology (+klebsiella on ucx, sen to bactrim only Called [facility] and was placed on hold twice w/ no answer Please call back) <Lexi Luong - Last Filed: 04/18/17 12:50> - Post ED Follow - Up Reason for Call Back: Abnwl. Microbiology (Patient with positive urine culture , called extended-care [facility], [facility] patient is inpatient on Levaquin, spoke to nurse Dayana who states she will call M.D. to change patient to Bactrim indeterminate on Levaquin.) <Nuvia Salinas - Last Filed: 04/18/17 13:43> - Post ED Follow - Up Condition at time of discharge: Good Disposition at time of original discharge: HOME
== END 2017-04-16 18:09 | disposition home or self-care (01) ==
LOC: JER 12:43
PROC: 3E0F7GC Introduction of Other Therapeutic Substance into Respiratory Tract, Via Natural or Artificial Opening (ICD-10-PCS; principal; 2017-04-16)
PROC: 3E033NZ Introduction of Analgesics, Hypnotics, Sedatives into Peripheral Vein, Percutaneous Approach (ICD-10-PCS; 2017-04-16)
PROC: 3E033GC Introduction of Other Therapeutic Substance into Peripheral Vein, Percutaneous Approach (ICD-10-PCS; 2017-04-16)
DX: J20.9 Acute bronchitis, unspecified (principal); R06.2 Wheezing; I48.91 Unspecified atrial fibrillation; J44.9 Chronic obstructive pulmonary disease, unspecified; E11.9 Type 2 diabetes mellitus without complications; I10 Essential (primary) hypertension; E78.5 Hyperlipidemia, unspecified
CPT/HCPCS: 36415; 71010-TC; 80053; 81003; 82550; 83605; 84484; 85025; 87040; 87086; 87186; 93005; 93010; 99283-25

== ENCOUNTER 2017-04-23 12:03 | Inpatient (IN) | payer MEDICARE, OTHER ==
--- NOTE | 2017-04-23 12:08 | PDOC ---
History of Present Illness - General History Source: Patient, Old Records, Primary Care Provider (Dr. Chaitanya Santiago ) Exam Limitations: No Limitations - History of Present Illness Initial Comments: 04/23/17 12:24 The patient is a 51-year-old woman with a significant past medical history of chronic obstructive pulmonary disease, morbid obesity, hypertension, hypercholesterolemia, paroxysmal atrial fibrillation (not anticoagulated secondary to GI bleed), recently discharged from [facility], sent from Dr. Chaitanya Lopez office when he found her to be in mild respiratory distress with diffuse wheezes and tachycardia. Patient was given 2 DuoNebs and 10 mg of Decadron en route. Patient was in a routine outpatient appointment when she sitting uncomfortably, secondary to a gluteal rash when she tuend and exacerbated her lower lateral lumbar pain. Patient was then noted to be in mild respiratory distress and EMS was activated. Patient reports that her cough over the past 2 weeks has not change in amount but has changed in sputum, as it is sometimes clear and sometimes yellow, which is atypical for her. No fever, chills, weakness. No chest pain, lightheadedness , dizziness, palpitations, abdominal pain, nausea, vomiting, diarrhea. No urinary complaints. Normal LVEF on nuclear stress test 04/03/2016. Patient's PCP, Dr. Chaitanya Santiago called in this patient and specifically requests admission to [facility]. Allergies: Oxycodone. Aspirin. Fentanyl. Blueberry Past Surgical History: Bowel resection. Appendectomy. Hysterectomy. Back Surgery (T6-T7) Social History: Lives at [facility]. Current everyday cigarette smoker (approximately 3 cigarettes/day). No EtOH and recreational drug use. Primary Care Physician: Dr. Chaitanya Snatiago <Priscila Albrecht - Last Filed: 04/23/17 14:08> <Jose L Barcenas - Last Filed: 04/23/17 14:34> - General Chief Complaint: Shortness of Breath Stated Complaint: Shortness of Breath Time Seen by Provider: 04/23/17 12:08 Past History <Priscila Albrecht - Last Filed: 04/23/17 14:08> - Past Medical History Anemia: Yes Asthma: Yes (COPD) Cancer: Yes (UTERINE) Cardiac Disorders: Yes (A-fib) CVA: No COPD: Yes CHF: No Dementia: No Diabetes: Yes GI Disorders: Yes (colitis, SB resection, GERD) Disorders: Yes (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) HTN: Yes Hypercholesterolemia: Yes Liver Disease: No Psychiatric Problems: Yes (ANXIETY) Suicide Attempt (Hx): No Seizures: Yes (5 yrs ago had a seizure ( zofran and reglan given together as per patient) Thyroid Disease: No - Surgical History Abdominal Surgery: Yes (BOWEL RESECTION) Appendectomy: Yes (removed 1998) Cardiac Surgery: No Cholecystectomy: No Lung Surgery: No Neurologic Surgery: No Orthopedic Surgery: Yes (Back Sx T7,6) - Immunization History Td Vaccination: Yes TDAP Vaccination: Yes Immunization Up to Date: Yes - Psycho/Social/Smoking Cessation Hx Anxiety: No Suicidal Ideation: No Smoking Status: No Smoking History: Former smoker Have you smoked in the past 12 months: No Number of Cigarettes Smoked Daily: 3 If you are a former smoker, when did you quit?: 2013 'Breaking Loose' booklet given: 03/12/15 Hx Alcohol Use: No Drug/Substance Use Hx: No Substance Use Type: None Hx Substance Use Treatment: No <Jose L Barcenas - Last Filed: 04/23/17 14:34> - Past Medical History Allergies/Adverse Reactions: Allergies Allergy/AdvReac Type Severity Reaction Status Date / Time oxycodone [Oxycodone] Allergy Severe Nausea Verified 04/16/17 13:04 oxycodone HCl [From Percocet] Allergy Severe Nausea Verified 04/16/17 13:04 aspirin Allergy Mild Verified 04/16/17 13:04 blueberry [Blueberry] Allergy Mild Swelling Verified 04/16/17 13:04 fentanyl Allergy Verified 04/16/17 13:04 Home Medications: Ambulatory Orders Levothyroxine [Synthroid -] 25 mcg PO DAILY@0700 tablet 06/05/16 Albuterol 2.5/Ipratropium 0.5 [Duoneb -] 1 amp NEB Q4HPO amp 09/17/16 Budesonide/Formeterol Fumarate [SYMBICORT 160/4.5mcg -] 2 inh PO BID 11/01/16 Lactobacillus Acidophilus [Bacid -] 1 tab PO BID tab 11/20/16 Ondansetron [Zofran -] 4 mg PO Q4H PRN #0 tablet 11/20/16 Zinc Oxide 1 applic TP BID tube 11/20/16 Cholecalciferol (Vitamin D3) [Vitamin D3 -] 2,000 unit PO DAILY #30 tab Albuterol Sulfate Inhaler - [Ventolin HFA Inhaler -] 2 puff IH Q4H PRN #0 inhaler 11/29/16 Omeprazole Magnesium [Prilosec] 20 mg PO BID 03/21/17 Acetaminophen [Tylenol .Regular Strength -] 650 mg PO Q6H PRN #0 tablet Alprazolam [Xanax] 0.25 mg PO BID tablet MDD 2 03/27/17 Diltiazem Cd [Cardizem Cd -] 360 mg PO DAILY #30 tab 03/27/17 Insulin (Levemir) [Levemir Vial] 5 units SQ BID@0700,2200 #5 unit 03/27/17 Insulin Sliding Scale [Novolog Vial Sliding Scale -] 1 vial SQ ACHS units 03/27 Lipase/Protease/Amylase [Creon Dr 6,000 Units Capsule] 3 cap PO TIDCM #90 cap Nystatin Powder [Nystop Powder -] 1 applic TP DAILY applic 03/27/17 Oxycodone Sr [Oxycontin] 10 mg PO BID #60 tab MDD 20mg 03/27/17 Polyethylene Glycol 3350 [Miralax 119 gm Btl -] 17 gm PO BID bottle 03/27/17 Roflumilast [Daliresp -] 500 mcg PO DAILY tablet 03/27/17 Cyproheptadine [Periactin -] 4 mg PO Q8H 04/23/17 Ranitidine HCl [Zantac] 150 mg PO DAILY 04/23/17 Simethicone 80 mg PO TID 04/23/17 Sulfamethoxazole/Trimethoprim [Bactrim Ds -] 1 tab PO BID 04/23/17 Review of Systems - Review of Systems Able to Perform ROS?: Yes Comments:: 04/23/17 12:29 CONSTITUTIONAL: Absent: fever, chills, diaphoresis, generalized weakness, malaise, loss of appetite HEENT: Absent: rhinorrhea, nasal congestion, throat pain, throat swelling, difficulty swallowing, mouth swelling, ear pain, eye pain, visual Changes CARDIOVASCULAR: Absent: chest pain, syncope, palpitations, irregular heart rate , lightheadedness, peripheral edema RESPIRATORY: Present: Cough. Shortness of Breath. Absent: dyspnea with exertion , orthopnea, wheezing, stridor, hemoptysis GASTROINTESTINAL:Absent: abdominal pain, abdominal distension, nausea, vomiting , diarrhea, constipation, melena, hematochezia GENITOURINARY: Absent: dysuria, frequency, urgency, hesitancy, hematuria, flank pain, genital pain MUSCULOSKELETAL: Present: Back Pain. Absent: joint swelling SKIN: Present: Rash. Absent: itching, pallor HEMATOLOGIC/IMMUNOLOGIC: Absent: easy bleeding, easy bruising, lymphadenopathy, frequent infections ENDOCRINE:Absent: unexplained weight gain, unexplained weight loss, heat intolerance, cold intolerance NEUROLOGIC: Absent: headache, focal weakness or paresthesias, dizziness, unsteady gait, seizure, mental status changes, bladder or bowel incontinence PSYCHIATRIC: Absent: anxiety, depression, suicidal or homicidal ideation, hallucinations <Priscila Albrecht - Last Filed: 04/23/17 14:08> *Physical Exam - Physical Exam Comments: 04/23/17 12:29 GENERAL: Awake and alert. In mild respiratory distress. HEENT: Normocephalic, atraumatic. PERRLA, EOMI. No conjunctival pallor. Sclera are non-icteric. Moist mucous membranes. Oropharynx is clear. NECK: Supple. Full ROM. No JVD. CARDIOVASCULAR: Tachycardic, regular rate and rhythm. No murmurs, rubs, or gallops. PULMONARY: In mild respiratory distress. Diffuse expiratory wheezes bilaterally. ABDOMINAL: Soft. Non-tender. Non-distended. No rebound or guarding. No organomegaly. Normoactive bowel sounds. MUSCULOSKELETAL: Normal range of motion at all joints. No bony deformities or tenderness. No CVA tenderness. EXTREMITIES: No cyanosis. No clubbing. No edema. No calf tenderness. SKIN: Diffuse erythematous rash on the bilateral gluteal area without skin breakdown. Warm and dry. Normal capillary refill. No jaundice. NEUROLOGICAL: Alert, awake, appropriate. Cranial nerves 2-12 intact. No deficits to light touch and temperature in face, upper extremities and lower extremities. No motor deficits in the in face, upper extremities and lower extremities. Normoreflexic in the upper and lower extremities. Normal speech. PSYCHIATRIC: Cooperative. Good eye contact. Appropriate mood and affect. <Priscila Albrecht - Last Filed: 04/23/17 14:08> Heart Score/ECG Review #1 04/23/17 12:32 Reviewed and interpreted by Dr. Jose L Barcenas IMPRESSION: Sinus tachycardia with a ventricular rate of 118 bpm. Normal axis. Normal intervals. Flat T wave in AVL. No ST changes. S wave in lead I, Q wave in lead II, unchanged from prior EKG obtained from 04/18/2017. <Priscila Albrecht - Last Filed: 04/23/17 14:08> ED Treatment Course - LABORATORY CBC & Chemistry Diagram: 04/23/17 13:15 04/23/17 13:00 - RADIOLOGY Radiograph Interpretation: 04/23/17 13:13 EXAM: RAD/CHEST X-RAY PORTABLE Interpreted by Dr. Randi Montoya IMPRESSION: Since 04/16/2017, the cardiac silhouette remains within normal limits in size. Perihilar increased lung markings are again seen without evidence of acute lung disease. Metallic hardware transfixing the thoracic spine as well as partially included right proximal humerus intramedullary shaft are present. Old left rib fractures again seen. Mediastinum and diaphragms appear unremarkable. There is no gross evidence of pneumothorax or pleural effusion, bilaterally <Priscila Albrecht - Last Filed: 04/23/17 14:08> - LABORATORY CBC & Chemistry Diagram: 04/23/17 13:15 04/23/17 13:00 <Jose L Barcenas - Last Filed: 04/23/17 14:34> Medical Decision Making - Medical Decision Making 04/23/17 14:10 [facility] Hospital[facility]. <Priscila Albrecht - Last Filed: 04/23/17 14:08> - Critical Care Time Total Critical Care Time (minutes): 35 Critical Care Statement: The care of this patient involved high complexity decision making to prevent further life threatening deterioration of the patient 's condition and/or to evalute & treat vital organ system(s) failure or risk of failure. - Medical Decision Making 04/23/17 12:20 The patient is in mild respiratory distress She is able to complete 3-4 word sentences She has diffuse expiratory wheezes She received Decadron intramuscularly Will administer IV Solu-Medrol, DuoNeb, magnesium Her back pain is clearly lower lumbar, and does not thoracic I do not think the back pain is secondary to pulmonary embolism She denies lower extremity swelling or edema I suspect her tachycardia is in part secondary to pain, in part secondary to respiratory distress and in part due to multiple duonebs Will administer analgesia using low-dose IV morphine as well as IV Tylenol 04/23/17 12:39 She is significantly improved after medications Labs pending Chest x-ray pending 04/23/17 12:55 Chest x-ray emergency Department interpretation: No interval change, no pneumothorax Labs pending 04/23/17 13:15 Heart rate improved, and now in the low 110s 04/23/17 14:19 Elevated lactic acid noted She did not have an oral temperature abnormality, nor did she have a rectal temperature abnormality There is no compelling evidence of infection/sepsis I presume elevated lactate is secondary to hypoxia However, given her tachycardia, tachypnea and leukocytosis, I will administer a single dose of IV Ceftaz edema for broad-spectrum coverage of nosocomial lisa to cover for possible occult sepsis Will also administer an additional liter of normal saline and repeat lactate She is complaining of severe back pain She is fully awake and alert Will administer 2mg of additional Morphine and monitor closely Clinical impression: Acute exacerbation of COPD Hypoxemic respiratory failure Tachycardia Lactic acidosis Case discussed in detail with admitting provider including history, physical exam and ancillary studies. Admitting physician has assumed care for the patient, will follow all pending diagnostics and will complete the evaluation and treatment. A portion of this note was documented by scribe services under my direction. I have reviewed the details of the note, within reason, and agree with the documentation with the following case summary and management plan written by me. 04/23/17 14:32 She is resting comfortably Heart rate 108 04/23/17 14:34 <Jose L Barcenas - Last Filed: 04/23/17 14:34> *DC/Admit/Observation/Transfer - Attestations Scribe Attestion: 04/23/17 12:29 Documentation prepared by Priscila Albrecht, acting as medical coder for Jose L Barcenas MD. <Priscila Albrecht - Last Filed: 04/23/17 14:08> - Discharge Dispostion Admit: Yes <Jose L Barcenas - Last Filed: 04/23/17 14:34> Diagnosis at time of Disposition: Acute exacerbation of COPD with asthma - Referrals
[2017-04-23] MEDS ORDERED: SODIUM CHLORIDE 1,000 ML IV STA ×2 (12:10→14:23)
[2017-04-23] MEDS ORDERED: dilTIAZem HCL 125 MG/25 ML - 5 ML VIAL IVPUSH ONE (12:11)
[2017-04-23] MEDS ORDERED: methylPREDNISolone NA SUCC 125 MG/2 ML VIAL IVPB ONE (12:13)
[2017-04-23] MEDS ORDERED: ALBUTEROL SO4 2.5/IPRATROPIUM 0.5 INH SOL 3 ML VIAL.NEB. NEB ONE ×2 (12:13→13:25)
[2017-04-23] MEDS ORDERED: ACETAMINOPHEN 1000 MG/100 ML VIAL (NON FORMULARY) IVPB ONE (12:19)
[2017-04-23] MEDS ORDERED: morphine CARPU-JECT 4 MG/1 ML DISP.SYRIN IVPUSH ONE ×2 (12:19→14:04)
[2017-04-23] MEDS ORDERED: MAGNESIUM SULFATE 2 GM in SODIUM CHLORIDE 100 ML IVPB ONE (12:20)
[2017-04-23 12:29] VITALS: BMI 25.6
[2017-04-23] MEDS ORDERED: DEXAMETHASONE SOD PHOSPHATE 10 MG/1 ML VIAL ONE (12:29)
[2017-04-23] MEDS ORDERED: methylPREDNISolone NA SUCC 125 MG/2 ML VIAL ONE (12:59)
[2017-04-23] MEDS ORDERED: morphine CARPU-JECT 2 MG/1 ML DISP.SYRIN ONE ×2 (12:59→14:13)
[2017-04-23] MEDS ORDERED: MAGNESIUM SULF 50% (8.12 MEQ/2 ML-1 GM VIAL) ONE (12:59)
[2017-04-23] MEDS ORDERED: ACETAMINOPHEN INJECTION 100 ML IVPB ONE (13:05)
[2017-04-23 13:33] LABS: ANION GAP 14 (8-16); BILIRUBIN,TOTAL 0.3 mg/dL (0.2-1.0); CALCIUM 8.9 mg/dL (8.5-10.1); CO2 28 mmol/L (21-32); CREATININE 0.6 mg/dL (0.55-1.02); GLUCOSE,RANDOM 254 mg/dL (74-106); SGPT/ALT 23 U/L (12-78); TOT PROT 6.6 g/dl (6.4-8.2)
[2017-04-23 13:36] LABS: ALK PHOS 165 U/L (45-117); TROPONIN I < 0.02 ng/ml (0.00-0.05)
[2017-04-23 13:37] LABS: MCH 27.1 pg (25.7-33.7); MEAN CELL VOLUME 84.9 fl (80-96); MEAN PLT VOLUME 7.2 fl (7.5-11.1); PLATELET COUNT 327 K/MM3 (134-434); RDW 18.7 % (11.6-15.6); WHITE BLOOD COUNT 16.6 K/mm3 (4.0-10.0)
[2017-04-23 13:38] LABS: SGOT/AST 24 U/L (15-37)
[2017-04-23 13:39] LABS: INR 0.97 (0.82-1.09); PROTHROMBIN TIME (PATIENT) 10.7 SEC (9.98-11.88)
[2017-04-23 13:42] LABS: ACTIVATED PTT 30.3 SECONDS (26.9-34.4)
[2017-04-23] MEDS ORDERED: cefTAZidime PENTAHYDRATE 1 GM/50ML PRE-DOCKED (RESTRICTED TO ID) IVPB ONE (14:19)
[2017-04-23 14:21] LABS: PLATELET ESTIMATE ADEQUATE (NORMAL)
[2017-04-23 14:56] LABS: PHOSPHOROUS 2.9 mg/dL (2.5-4.9)
[2017-04-23 15:09] LABS: URINE APPEARANCE CLEAR; URINE BILIRUBIN NEGATIVE (NEGATIVE); URINE BLOOD NEGATIVE (NEGATIVE); URINE COLOR LTYELLOW; URINE GLUCOSE (UA) 1+ (NEGATIVE); URINE KETONE NEGATIVE (NEGATIVE); URINE LEUK ESTERASE NEGATIVE (NEGATIVE); URINE NITRITE NEGATIVE (NEGATIVE); URINE UROBILINOGEN NEGATIVE E.U./dl (0.2-1.0)
[2017-04-23 15:18] LABS: URINE PROTEIN 1+ (NEGATIVE)
[2017-04-23 15:21] LABS: URINE HYALINE CAST 3 /lpf; URINE MUCUS RARE; URINE RBC 1 /hpf (0-3); URINE WBC <1 /hpf (3-5)
--- NOTE | 2017-04-23 15:35 | EKG ---
Test Reason : Blood Pressure : / mmHG Vent. Rate : 118 BPM Atrial Rate : 118 BPM P-R Int : 118 ms QRS Dur : 080 ms QT Int : 302 ms P-R-T Axes : 036 011 051 degrees QTc Int : 423 ms SINUS TACHYCARDIA OTHERWISE NORMAL ECG WHEN COMPARED WITH ECG OF 16-APR-2017 13:24, PREMATURE ATRIAL COMPLEXES ARE NO LONGER PRESENT Confirmed by NICK CODY MD ([id number]) on 04/23/2017 3:35:43 PM Referred By: Confirmed By:NICK CODY MD
[2017-04-23] MEDS ORDERED: SODIUM CHLORIDE 250 ML IV STA (15:48)
[2017-04-23] MEDS ORDERED: morphine CARPU-JECT 2 MG/1 ML DISP.SYRIN IVPUSH PRN (16:27)
--- NOTE | 2017-04-23 16:28 | HP ---
CHIEF COMPLAINT: mild respiratory distress, wheezing and tachycardia PCP: Dr. Estrada HISTORY OF PRESENT ILLNESS: Patient is a 51 year old female with a significant past medical history of COPD, inbutation, tracheostomy, morbid obesity, hypertension, hypercholesterolemia, paroxysmal atrial fibrillation (no on any anticoagulation secondary to hx of GI bleed). She was sent by her PCP Dr. Estrada after she presented to his office in mild respiratory distress with diffuse wheezes and tachycardia. Patient reports that she has a chronic productive cough with yellow pheghm. She denies any chest pain, palpitations, nausea or vomiting. She denies abdominal pain. ER course was notable for: (1) lactic acidosis (2) mild respiratory distress (3) leukocytosis, tachycardia Recent Travel: denies PAST MEDICAL HISTORY: PAST SURGICAL HISTORY: bowel resection, tracheostomy, appendectomy, hysterectomy and back surgery Social History: Smoking: former smoker Alcohol: denies Drugs: denies Family History: Allergies: oxycodone, ASA, bluberry, fentanyl oxycodone [Oxycodone] Allergy (Severe, Verified 04/16/17 13:04) Nausea oxycodone HCl [From Percocet] Allergy (Severe, Verified 04/16/17 13:04) Nausea aspirin Allergy (Mild, Verified 04/16/17 13:04) blueberry [Blueberry] Allergy (Mild, Verified 04/16/17 13:04) Swelling fentanyl Allergy (Verified 04/16/17 13:04) HOME MEDICATIONS: Home Medications Medication Instructions Recorded Levothyroxine [Synthroid -] 25 mcg PO DAILY@0700 tablet 06/05/16 Albuterol 2.5/Ipratropium 0.5 1 amp NEB Q4HPO amp 09/17/16 [Duoneb -] Budesonide/Formeterol Fumarate 2 inh PO BID 11/01/16 [SYMBICORT 160/4.5mcg -] Lactobacillus Acidophilus [Bacid -] 1 tab PO BID tab 11/20/16 Ondansetron [Zofran -] 4 mg PO Q4H PRN #0 tablet 11/20/16 Zinc Oxide 1 applic TP BID tube 11/20/16 Cholecalciferol (Vitamin D3) 2,000 unit PO DAILY #30 tab 11/28/16 [Vitamin D3 -] Albuterol Sulfate Inhaler - 2 puff IH Q4H PRN #0 inhaler 11/29/16 [Ventolin HFA Inhaler -] Omeprazole Magnesium [Prilosec] 20 mg PO BID 03/21/17 Acetaminophen [Tylenol .Regular 650 mg PO Q6H PRN #0 tablet 03/27/17 Strength -] Alprazolam [Xanax] 0.25 mg PO BID tablet MDD 2 03/27/17 Diltiazem Cd [Cardizem Cd -] 360 mg PO DAILY #30 tab 03/27/17 Insulin (Levemir) [Levemir Vial] 5 units SQ BID@0700,2200 #5 unit 03/27/17 Insulin Sliding Scale [Novolog 1 vial SQ ACHS units 03/27/17 Vial Sliding Scale -] Lipase/Protease/Amylase [Creon Dr 3 cap PO TIDCM #90 cap 03/27/17 6,000 Units Capsule] Nystatin Powder [Nystop Powder -] 1 applic TP DAILY applic 03/27/17 Oxycodone Sr [Oxycontin] 10 mg PO BID #60 tab MDD 20mg 03/27/17 Polyethylene Glycol 3350 [Miralax 17 gm PO BID bottle 03/27/17 119 gm Btl -] Roflumilast [Daliresp -] 500 mcg PO DAILY tablet 03/27/17 Cyproheptadine [Periactin -] 4 mg PO Q8H 04/23/17 Ranitidine HCl [Zantac] 150 mg PO DAILY 04/23/17 Simethicone 80 mg PO TID 04/23/17 Sulfamethoxazole/Trimethoprim 1 tab PO BID 04/23/17 [Bactrim Ds -] REVIEW OF SYSTEMS CONSTITUTIONAL: Absent: fever, chills, diaphoresis, generalized weakness, malaise, loss of appetite, weight change HEENT: Absent: rhinorrhea, nasal congestion, throat pain, throat swelling, difficulty swallowing, mouth swelling, ear pain, eye pain, visual changes CARDIOVASCULAR: Absent: chest pain, syncope, palpitations, irregular heart rate, lightheadedness , peripheral edema GASTROINTESTINAL: Absent: abdominal pain, abdominal distension, nausea, vomiting, diarrhea, constipation, melena, hematochezia GENITOURINARY: Absent: dysuria, frequency, urgency, hesitancy, hematuria, flank pain, genital pain MUSCULOSKELETAL: Absent: myalgia, arthralgia, joint swelling, back pain, neck pain HEMATOLOGIC/IMMUNOLOGIC: Absent: easy bleeding, easy bruising, lymphadenopathy, frequent infections ENDOCRINE: Absent: unexplained weight gain, unexplained weight loss, heat intolerance, cold intolerance NEUROLOGIC: Absent: headache, focal weakness or paresthesias, dizziness, unsteady gait, seizure, mental status changes, bladder or bowel incontinence PSYCHIATRIC: Absent: agitation PHYSICAL EXAMINATION Vital Signs - 24 hr 04/23/17 04/23/17 04/23/17 13:16 14:28 15:17 Pulse Rate [ 129 H 115 H 107 H Apical] Respiratory 28 H 28 H 24 Rate Blood Pressure 127/81 [Left Arm] O2 Sat by Pulse 98 98 97 Oximetry (%) 04/23/17 15:22 Pulse Rate [ Apical] Respiratory Rate Blood Pressure 114/69 [Left Arm] O2 Sat by Pulse Oximetry (%) GENERAL: Obese, in mild respiratory distress HEAD: Normal with no signs of trauma. EYES: Pupils equal, round and reactive to light, extraocular movements intact, sclera anicteric, conjunctiva clear. No lid lag. EARS, NOSE, THROAT: Ears normal, nares patent, Endotracheal tube in place, Dry mucousa NECK: Normal range of motion, supple without lymphadenopathy, JVD, or masses. LUNGS: Some air movement. mild respiratory distress, +wheezing on anterior and posterior lobes, on 2 liters of nasal cannula, +accessory muscle use HEART: Tachycardia, normal S1 and S2 without murmur, rub or gallop. ABDOMEN: Soft, obese, nontender, not distended, normoactive bowel sounds, no guarding, no rebound, no masses. No hepatomegaly or splenomegaly. MUSCULOSKELETAL: Normal range of motion at all joints. No bony deformities or tenderness. No CVA tenderness. UPPER EXTREMITIES: 2+ pulses, warm, well-perfused. No cyanosis. No clubbing. No peripheral edema. LOWER EXTREMITIES: 2+ pulses, warm, well-perfused. No calf tenderness. No peripheral edema. NEUROLOGICAL: Gait not observed. PSYCHIATRIC: Periods of agitation SKIN: Eccyhmotic bruising to abdomen noted. Warm, dry, normal turgor, no rashes. normal capillary refill. +fungal rash of buttocks - nystatin ordered Laboratory Results - last 24 hr 04/23/17 04/23/17 04/23/17 13:00 13:00 13:00 WBC Cancelled Corrected WBC (auto) Cancelled RBC Cancelled Hgb Cancelled Hct Cancelled MCV Cancelled MCHC Cancelled RDW Cancelled Plt Count Cancelled MPV Cancelled Neutrophils % Cancelled Lymphocytes % Cancelled Monocytes % Cancelled Eosinophils % Cancelled Basophils % Cancelled Differential Comment Cancelled Smudge Cells Cancelled Platelet Estimate Cancelled Platelet Comment Cancelled RBC Morphology Cancelled INR 0.97 PTT (Actin FS) 30.3 Sodium 135 L Potassium 5.7 H D Chloride 93 L Carbon Dioxide 28 Anion Gap 14 BUN 18 D Creatinine 0.6 D Creat Clearance w eGFR > 60 Random Glucose 254 H D Lactic Acid Calcium 8.9 Phosphorus Total Bilirubin 0.3 D AST 24 D ALT 23 D Alkaline Phosphatase 165 H D Creatine Kinase 64 Troponin I < 0.02 B-Natriuretic Peptide Total Protein 6.6 Albumin 3.0 L Urine Color Urine Appearance Urine pH Urine Protein Urine Glucose (UA) Urine Ketones Urine Blood Urine Nitrite Urine Bilirubin Urine Urobilinogen Ur Leukocyte Esterase Urine RBC Urine WBC Hyaline Casts Urine Mucus 04/23/17 04/23/17 04/23/17 13:00 13:15 14:15 WBC 16.6 H D Corrected WBC (auto) RBC 4.25 Hgb 11.5 Hct 36.1 MCV 84.9 MCHC 32.0 RDW 18.7 H Plt Count 327 MPV 7.2 L Neutrophils % 92.0 H Lymphocytes % 8.0 D Monocytes % Eosinophils % Basophils % Differential Comment Manual diff done Smudge Cells Platelet Estimate Adequate Platelet Comment RBC Morphology INR PTT (Actin FS) Sodium Potassium Chloride Carbon Dioxide Anion Gap BUN Creatinine Creat Clearance w eGFR Random Glucose Lactic Acid 4.1 H* Calcium Phosphorus 2.9 Total Bilirubin AST ALT Alkaline Phosphatase Creatine Kinase Troponin I B-Natriuretic Peptide 98.26 Total Protein Albumin Urine Color Urine Appearance Urine pH Urine Protein Urine Glucose (UA) Urine Ketones Urine Blood Urine Nitrite Urine Bilirubin Urine Urobilinogen Ur Leukocyte Esterase Urine RBC Urine WBC Hyaline Casts Urine Mucus 04/23/17 04/23/17 14:39 14:50 WBC Corrected WBC (auto) RBC Hgb Hct MCV MCHC RDW Plt Count MPV Neutrophils % Lymphocytes % Monocytes % Eosinophils % Basophils % Differential Comment Smudge Cells Platelet Estimate Platelet Comment RBC Morphology INR PTT (Actin FS) Sodium Potassium Chloride Carbon Dioxide Anion Gap BUN Creatinine Creat Clearance w eGFR Random Glucose Lactic Acid 3.4 H* Calcium Phosphorus Total Bilirubin AST ALT Alkaline Phosphatase Creatine Kinase Troponin I B-Natriuretic Peptide Total Protein Albumin Urine Color Ltyellow Urine Appearance Clear Urine pH 7.0 Urine Protein 1+ H Urine Glucose (UA) 1+ H Urine Ketones Negative Urine Blood Negative Urine Nitrite Negative Urine Bilirubin Negative Urine Urobilinogen Negative Ur Leukocyte Esterase Negative Urine RBC 1 Urine WBC <1 Hyaline Casts 3 Urine Mucus Rare ASSESSMENT/PLAN: Patient is a 51 year old female with a significant past medical history of COPD (home oxygen dependent), asthma, inbutation, tracheostomy, morbid obesity, hypertension, hypercholesterolemia, paroxysmal atrial fibrillation (no on any anticoagulation secondary to hx of GI bleed), anxiety, depression, bipolar disorder and uterine cancer. She was sent by her PCP Dr. Estrada after she presented to his office in mild respiratory distress with diffuse wheezes and tachycardia. Patient reports that she has a chronic productive cough with yellow pheghm. She denies any chest pain, palpitations, nausea or vomiting. She denies abdominal pain. Imaging: Chest Xray 04/23/2017: Old left rib fracture, no evidence of pneumothorax or pleural effusion, no acute lung disease Pulmonary: Respiratory Failure secondary to acute COPD exacerbation Assessment/Plan: Tolerating 2 liters of nasal cannula with saturations of 95% Alternated with bipap therapy which has been ordered Appears to be in mild respiratory distress, +congestion up bilateral lung garcia Goal is to keep oxygen saturations >90% on 2 liters of nasal cannula Will order sputum culture Support with duonebs, symbicort and asmanex and Solumedrol 40mg q6 Aspiration precautions stat ABGs ordered as pt was recently intubated February/2017 Pulmonary following Continue to monitor respiratory status ID: Pneumonia/Leukocytosis/Lactic acidosis - acute Assessment/Plan: Given dose of Ceftazidime in ED, will order one time dose of Zosyn and consult ID Blood cultures, urine cultures pending WBC elevated, tachycardia with mild respiratory distress Monitor CBC Lactic acidosis with mild improvement, continue to fluid resuscitate Repeat lactic acid tonight Psyche: Bipolar/anxiety/depression Assessment/Plan: continue psyche home meds Endocrine: Diabetes mellitus - chronic Assessment/Plan: Novolog sliding scale Monitor BGMs while on steroids Cardiology: Proxy Atrial Fib Currently in Sinus rhythm - On Cardizem FEN Fluid: NS @ 100cc/hr Electrolytes: Monitor labs Nutrition: soft diet Prophylaxis DVT: SCD, heparin SQ GI: Zantac Disposition: Requires inpatient hospitalization. Visit type - Emergency Visit Emergency Visit: Yes ED Registration Date: 04/23/17 Care time: The patient presented to the Emergency Department on the above date and was hospitalized for further evaluation of their emergent condition. - New Patient This patient is new to me today: No - Critical Care Critical Care patient: No
[2017-04-23] MEDS ORDERED: INSULIN SLIDING SCALE (NOVOLOG) 1 VIAL SQ SCH (16:30)
[2017-04-23] MEDS ORDERED: CYPROHEPTADINE HCL 4 MG TABLET PO SCH (16:30)
[2017-04-23] MEDS: ALBUTEROL SO4 2.5/IPRATROPIUM 0.5 INH SOL 3 ML VIAL.NEB. NEB SCH ×2 (17:46→21:49)
--- NOTE | 2017-04-23 17:59 | CON.PULM ---
Consult Consult Specialty:: Pulmonary Referred by:: PMD/SNF Reason for Consultation:: SOB/COUGH/WHEEZE - History of Present Illness History of Present Illness: Patient is a 51 year old female with a significant past medical history of COPD , inbutation, tracheostomy, morbid obesity, hypertension, hypercholesterolemia, paroxysmal atrial fibrillation (not on any anticoagulation secondary to hx of GI bleed). She was sent by me from office via EMS after she presented in moderate respiratory distress with diffuse wheezes and tachycardia. Patient reports that she has a chronic productive cough with yellow pheghm. She denies any chest pain, palpitations, nausea or vomiting. She denies abdominal pain. Her PCP is Dr. Jaquez, he does not have priledges at [facility]. I am the patient 's compensation and hris analyst not the PCP. - History Source History Provided By: Patient, Medical Record Limitations to Obtaining History: Clinical Condition - Past Medical History Cardio/Vascular: Yes: AFIB (Paroxysmal), HTN, Hyperlipdemia Pulmonary: Yes: Asthma, COPD, O2 Dependent Renal/: Yes: Cancer (Uterine), Other ([place] in the past) ...: No Infectious Disease: Yes: C-Diff (june 2014), Other (Osteomyelitis of thoracic spine) Psych: Yes: Anxiety, Bipolar, Depression Musculoskeletal: Yes: Chronic low back pain Additional Medical History: Frequent c/o abdominal pain-extensive w/u in the past negative. Presumed adhesions from prior surgeries. - Past Surgical History Past Surgical History: Yes: Hysterectomy (with BSO) - Alcohol/Substance Use Hx Alcohol Use: No - Smoking History Smoking history: Former smoker Have you smoked in the past 12 months: No Aproximately how many cigarettes per day: 3 If you are a former smoker, when did you quit?: 2013 - Social History Usual Living Arrangement: [facility] 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) Place of : [facility] History of Recent Travel: No Home Medications - Allergies Allergies/Adverse Reactions: Allergies Allergy/AdvReac Type Severity Reaction Status Date / Time oxycodone [Oxycodone] Allergy Severe Nausea Verified 04/16/17 13:04 oxycodone HCl [From Percocet] Allergy Severe Nausea Verified 04/16/17 13:04 aspirin Allergy Mild Verified 04/16/17 13:04 blueberry [Blueberry] Allergy Mild Swelling Verified 04/16/17 13:04 fentanyl Allergy Verified 04/16/17 13:04 - Home Medications Home Medications: Ambulatory Orders Levothyroxine [Synthroid -] 25 mcg PO DAILY@0700 tablet 06/05/16 Albuterol 2.5/Ipratropium 0.5 [Duoneb -] 1 amp NEB Q4HPO amp 09/17/16 Budesonide/Formeterol Fumarate [SYMBICORT 160/4.5mcg -] 2 inh PO BID 11/01/16 Lactobacillus Acidophilus [Bacid -] 1 tab PO BID tab 11/20/16 Ondansetron [Zofran -] 4 mg PO Q4H PRN #0 tablet 11/20/16 Zinc Oxide 1 applic TP BID tube 11/20/16 Cholecalciferol (Vitamin D3) [Vitamin D3 -] 2,000 unit PO DAILY #30 tab Albuterol Sulfate Inhaler - [Ventolin HFA Inhaler -] 2 puff IH Q4H PRN #0 inhaler 11/29/16 Omeprazole Magnesium [Prilosec] 20 mg PO BID 03/21/17 Acetaminophen [Tylenol .Regular Strength -] 650 mg PO Q6H PRN #0 tablet Alprazolam [Xanax] 0.25 mg PO BID tablet MDD 2 03/27/17 Diltiazem Cd [Cardizem Cd -] 360 mg PO DAILY #30 tab 03/27/17 Insulin (Levemir) [Levemir Vial] 5 units SQ BID@0700,2200 #5 unit 03/27/17 Insulin Sliding Scale [Novolog Vial Sliding Scale -] 1 vial SQ ACHS units 03/27 Lipase/Protease/Amylase [Creon Dr 6,000 Units Capsule] 3 cap PO TIDCM #90 cap Nystatin Powder [Nystop Powder -] 1 applic TP DAILY applic 03/27/17 Oxycodone Sr [Oxycontin] 10 mg PO BID #60 tab MDD 20mg 03/27/17 Polyethylene Glycol 3350 [Miralax 119 gm Btl -] 17 gm PO BID bottle 03/27/17 Roflumilast [Daliresp -] 500 mcg PO DAILY tablet 03/27/17 Cyproheptadine [Periactin -] 4 mg PO Q8H 04/23/17 Loperamide HCl [Imodium A-D] 1 tab PO Q4H PRN 04/23/17 Ranitidine HCl [Zantac] 150 mg PO HS 04/23/17 Simethicone 80 mg PO TID 04/23/17 Sulfamethoxazole/Trimethoprim [Bactrim Ds -] 1 tab PO BID 04/23/17 Family Disease History - Family Disease History Family Disease History: Diabetes: Mother (heart surgery), Heart Disease: Mother , CA: Father (leukemia) Review of Systems - Review of Systems Constitutional: reports: Lethargy. denies: Fever Eyes: denies: Blind Spots HENT: denies: Difficult Swallowing Neck: reports: No Symptoms Cardiovascular: reports: Palpitations, Shortness of Breath Respiratory: reports: Cough, Exercise Intolerance, SOB, SOB on Exertion, Wheezing. denies: Hemoptysis Gastrointestinal: reports: Bloating Genitourinary: reports: No Symptoms Musculoskeletal: reports: Back Pain Neurological: reports: No Symptoms Hematology/Lymphatic: reports: No Symptoms Physical Exam Vital Sings: Vital Signs Temperature 98.7 F 04/23/17 17:04 Pulse Rate 88 04/23/17 17:40 Respiratory Rate 28 H 04/23/17 17:04 Blood Pressure 124/72 04/23/17 17:04 O2 Sat by Pulse Oximetry (%) 97 04/23/17 17:40 Constitutional: Yes: Anxious Eyes: Yes: EOM Intact HENT: Yes: Normocephalic Neck: Yes: Trachea Midline Cardiovascular: Yes: Tachycardia, S1, S2 Respiratory: Yes: Rales, Rhonchi, Wheezes Gastrointestinal: Yes: Soft Edema: No Labs: CBC, BMP 04/23/17 13:15 04/23/17 13:00 REST REVIEWED Imaging - Results Chest X-ray: Image Reviewed EKG: Report Reviewed Assessment/Plan ACUTE A/E COPD W BRONCHOSPASTIC COMPONENT STEROID DEPENDANT/O2 DEP/OPIOD DEP MULTIPLE MEDICAL PROBLEMS PREVIOUS LISTED LIKELY ACUTE BRONCHITIS CAUSING EXACERBATION NO RADIOGRAPHIC EVIDENCE TO SUPPORT PNEUMONIA AGREE WITH CURRENT PLAN PANCULTURE/EMPIRIC ABS O2 SUPPLEMENTATION/BRONCHODILATORS STEROIDS/DVT/PUD PROPHYLAXSIS TREND LACTATE/MONITOR I/O R CARLIE WRIGHT
[2017-04-23] MEDS: methylPREDNISolone NA SUCC 40 MG/1 ML VIAL IVPB SCH ×2 (18:02→22:45)
[2017-04-23] MEDS ORDERED: SODIUM POLYSTYRENE SULFONATE 15 GM/60 ML BOTTLE PO ONE (18:07)
[2017-04-23] MEDS ORDERED: PIPERACILLIN/TAZOB 2.25 GM 50 ML IVPB ONE (18:11)
[2017-04-23] MEDS ORDERED: SODIUM CHLORIDE 1,000 ML IV SCH (18:15)
[2017-04-23 18:54] LABS: ARTERIAL BLD GAS O2 SATURATION 98.1 % (90-98.9); ARTERIAL BLOOD GAS BASE EXCESS 0.6 meq/l (-2-2); ARTERIAL BLOOD GAS HCO3 25.3 meq/L (22-26); ARTERIAL BLOOD GAS pH 7.38 (7.35-7.45)
[2017-04-23 18:55] LABS: ALLENS TEST POSITIVE; ART PUNCT SITE LEFT RADIAL; LPM/O2% 3LPM; PT. ON O2? YES; TYPE OF O2 NASAL CANNULA
[2017-04-23] MEDS: morphine CARPU-JECT 2 MG/1 ML DISP.SYRIN IVPUSH PRN (20:01)
[2017-04-23] MEDS ORDERED: NYSTATIN 100000 UNIT/GM TOPICAL OINTMENT 15 GM TUBE TP SCH (22:00)
[2017-04-23] MEDS: HEPARIN NA (PORCINE) 5,000 UNITS/ML 1ML VIAL SQ SCH (22:45)
[2017-04-23] MEDS: LACTOBACILLUS ACIDOPHILUS 1 EACH TAB (FP) PO SCH (22:45)
[2017-04-23] MEDS: SIMETHICONE 80 MG TAB.CHEW (FP) PO SCH (22:45)
[2017-04-23] MEDS: ONDANSETRON 4 MG TABLET PO PRN (22:45)
[2017-04-23] MEDS: ALPRAZolam 0.25 MG TABLET PO SCH (22:45)
[2017-04-23] MEDS: BUDESONIDE/FORMETEROL FUMARATE 160/4.5 mcg INHALER IH SCH (22:47)
[2017-04-23] MEDS: INSULIN DETEMIR 100 UNITS/ML MDV SQ SCH (22:55)
[2017-04-23] MEDS: INSULIN SLIDING SCALE (NOVOLOG) 1 VIAL SQ SCH (22:56)
[2017-04-23] MEDS: CYPROHEPTADINE HCL 4 MG TABLET PO SCH (23:29)
[2017-04-24] MEDS ORDERED: LORAZEPAM CARPU-JECT 2 MG/ML DISP.SYRIN IVPUSH ONE (00:21)
[2017-04-24] MEDS ORDERED: LORazepam 2 MG/ML SDV VIAL ONE (00:40)
[2017-04-24] MEDS: morphine CARPU-JECT 2 MG/1 ML DISP.SYRIN IVPUSH PRN ×4 (01:18→22:10)
[2017-04-24] MEDS: ALBUTEROL SO4 2.5/IPRATROPIUM 0.5 INH SOL 3 ML VIAL.NEB. NEB SCH ×7 (02:55→23:00)
[2017-04-24] MEDS: methylPREDNISolone NA SUCC 40 MG/1 ML VIAL IVPB SCH ×4 (04:27→22:07)
[2017-04-24] MEDS ORDERED: morphine CARPU-JECT 2 MG/1 ML DISP.SYRIN IVPUSH ONE ×2 (05:56→09:34)
--- NOTE | 2017-04-24 06:13 | HOSP ---
Subjective - Review of Symptoms Events since last encounter: patient sob, anxious Subjective: patient sat dropped to 88 on NC, was placed on cpap, complains of "too much pressure" as anxiety, tachypneic 30. General: No: Chills HEENT: No: Head Aches, Visual Changes Pulmonary: Yes: Dyspnea. No: Cough, Pleuritic Chest Pain Cardiovascular: No: Chest Pain, Palpitations, Orthopnea, Light Headedness Gastrointestinal: No: Nausea, Vomiting, Abdominal Pain Neurological: No: Weakness Physical Examination Vital Signs: Vital Signs Temperature 98.9 F 04/24/17 02:00 Pulse Rate 127 H 04/24/17 02:00 Respiratory Rate 26 H 04/24/17 02:00 Blood Pressure 131/101 04/24/17 02:00 O2 Sat by Pulse Oximetry (%) 94 L 04/24/17 00:11 Constitutional: Yes: Anxious Eyes: Yes: Conjunctiva Clear, PERRL HENT: Yes: Atraumatic Neck: Yes: Supple Cardiovascular: Yes: Regular Rate and Rhythm, S1, S2 Respiratory: Yes: Poor Air Entry, Rhonchi (diffuse) Gastrointestinal: Yes: Normal Bowel Sounds, Soft Psychiatric: Yes: Alert, Oriented, Agitated Labs: CBC, BMP 04/23/17 13:15 04/23/17 13:00 Hospitalist Encounter Assessment: 51 yo F with mutiple comorbidities including severe copd, admitted for mils respiratory distress respiratory distress -due to copd exacerbation and severe anxiety -voices multiple complaints about care -respiratory therapist at bedside, decrease IPAP to 7 on cpap machine; will switch to bipapa if needed -ativan now for anxiety -continue prescribed nebs. -reassured patient Outcome: patient calmed down, resp rate decreased to 14, O2 sat mid 90's, fell asleep. Visit type - Emergency Visit Emergency Visit: Yes ED Registration Date: 04/23/17 Care time: The patient presented to the Emergency Department on the above date and was hospitalized for further evaluation of their emergent condition. - New Patient This patient is new to me today: No - Critical Care Critical Care patient: No
[2017-04-24] MEDS: INSULIN DETEMIR 100 UNITS/ML MDV SQ SCH ×2 (06:31→22:28)
[2017-04-24] MEDS: CYPROHEPTADINE HCL 4 MG TABLET PO SCH ×3 (06:31→22:09)
[2017-04-24] MEDS: INSULIN SLIDING SCALE (NOVOLOG) 1 VIAL SQ SCH ×4 (06:31→22:26)
[2017-04-24] MEDS: HEPARIN NA (PORCINE) 5,000 UNITS/ML 1ML VIAL SQ SCH ×3 (06:32→22:07)
[2017-04-24] MEDS: SIMETHICONE 80 MG TAB.CHEW (FP) PO SCH ×3 (06:32→22:07)
[2017-04-24 07:27] LABS: BASOPHIL 0.1 % (0-2.0); MCH 27.7 pg (25.7-33.7); MCHC 32.8 g/dl (32.0-36.0); MEAN CELL VOLUME 84.3 fl (80-96); MEAN PLT VOLUME 7.3 fl (7.5-11.1); NEUTROPHILS 95.6 % (42.8-82.8); PLATELET COUNT 295 K/MM3 (134-434); RDW 18.3 % (11.6-15.6); WHITE BLOOD COUNT 10.7 K/mm3 (4.0-10.0)
[2017-04-24 07:45] LABS: ALBUMIN 2.7 g/dl (3.4-5.0); ALK PHOS 143 U/L (45-117); ANION GAP 15 (8-16); BILIRUBIN,TOTAL 0.2 mg/dL (0.2-1.0); CALCIUM 8.1 mg/dL (8.5-10.1); CO2 25 mmol/L (21-32); COCKROFT - GAULT 123.7685; CREATININE 0.5 mg/dL (0.55-1.02); GLUCOSE,RANDOM 208 mg/dL (74-106); MAGNESIUM 2.2 mg/dL (1.8-2.4); SGOT/AST 8 U/L (15-37); SGPT/ALT 22 U/L (12-78)
[2017-04-24] MEDS: ACETAMINOPHEN 325 MG TABLET (FP) PO PRN (08:03)
[2017-04-24] MEDS: LEVOTHYROXINE NA 25 MCG TABLET (FP) PO SCH (08:04)
[2017-04-24] MEDS ORDERED: PT OWN MED DRAWER 7, Y5N ONE ×4 (09:33→22:54)
[2017-04-24] MEDS: LACTOBACILLUS ACIDOPHILUS 1 EACH TAB (FP) PO SCH ×2 (09:43→22:07)
[2017-04-24] MEDS: ALPRAZolam 0.25 MG TABLET PO SCH ×2 (09:43→22:07)
[2017-04-24] MEDS: RANITIDINE HCL 150 MG TABLET (FP) PO SCH (09:44)
[2017-04-24] MEDS: CHOLECALCIFEROL (VITAMIN D3) 1,000 UNIT TABLET (FP) PO SCH (09:44)
[2017-04-24] MEDS: ROFLUMILAST 500 MCG TABLET PO SCH (09:44)
--- NOTE | 2017-04-24 09:44 | PN ---
Progress Note (short form) - Note Progress Note: ID Consult dictated Acute exacerbation COPD Acue on chronic bronchitis Hx + sputum c/s Pseudomonas Leukocytosis, possible sepsis Lactic acidosis Pending c/s, empiric cefepime 1gm q8h Bronchodilators, steroids
[2017-04-24] MEDS: LIPASE/PROTEASE/AMYLASE 6,000 UNIT CAPSULE PO SCH ×3 (09:46→17:30)
[2017-04-24] MEDS: BUDESONIDE/FORMETEROL FUMARATE 160/4.5 mcg INHALER IH SCH ×2 (09:46→22:25)
--- NOTE | 2017-04-24 09:46 | PN ---
Physical Exam: SUBJECTIVE: Patient seen and examined. States she had a "bad night", did not sleep. Had headache, was very anxious. She denies chest pain, states she has low back pain not relieved and had to get extra dose of morphine overnight as well as Ativan for anxiety. OBJECTIVE: Overnights notes reviewed In moderate respiratory distress with accessory muscle use - appears slightly worse compared to yesterday Will increase Solumedrol to 60mg q6 and monitor for improvement. Patient has a recenty history of intubation, and therefore needs close monitoring She did not tolerate cpap overnight, may benefit from bipap Lactic acid levels now normalized, will d/c IVF Vital Signs Period Temp Pulse Resp BP Sys/Dan Pulse Ox Last 24 Hr 98 F-98.9 F 88-129 20-28 114-141/67-101 94-98 GENERAL: in moderate respiratory distress, worsening from yesterday HEAD: Normal with no signs of trauma. EYES: Pupils equal, round and reactive to light, extraocular movements intact, sclera anicteric, conjunctiva clear. No lid lag. EARS, NOSE, THROAT: Ears normal, nares patent, Endotracheal tube in place, Dry mucousa NECK: Normal range of motion, supple without lymphadenopathy, JVD, or masses. LUNGS: Some air movement. mild respiratory distress, +wheezing on anterior and posterior lobes, on 2 liters of nasal cannula, +accessory muscle use HEART: Tachycardia, normal S1 and S2 without murmur, rub or gallop. ABDOMEN: Soft, obese, nontender, not distended, normoactive bowel sounds, no guarding, no rebound, no masses. No hepatomegaly or splenomegaly. MUSCULOSKELETAL: Normal range of motion at all joints. No bony deformities or tenderness. No CVA tenderness. UPPER EXTREMITIES: 2+ pulses, warm, well-perfused. No cyanosis. No clubbing. No peripheral edema. LOWER EXTREMITIES: 2+ pulses, warm, well-perfused. No calf tenderness. No peripheral edema. NEUROLOGICAL: Gait not observed. PSYCHIATRIC: Periods of agitation SKIN: Eccyhmotic bruising to abdomen noted. Warm, dry, normal turgor, no rashes. normal capillary refill. +fungal rash of buttocks - nystatin ordered Laboratory Results - last 24 hr 04/23/17 04/23/17 04/23/17 13:00 13:00 13:00 WBC Cancelled Corrected WBC (auto) Cancelled RBC Cancelled Hgb Cancelled Hct Cancelled MCV Cancelled MCHC Cancelled RDW Cancelled Plt Count Cancelled MPV Cancelled Neutrophils % Cancelled Lymphocytes % Cancelled Monocytes % Cancelled Eosinophils % Cancelled Basophils % Cancelled Differential Comment Cancelled Smudge Cells Cancelled Platelet Estimate Cancelled Platelet Comment Cancelled RBC Morphology Cancelled INR 0.97 PTT (Actin FS) 30.3 Puncture Site ABG pH ABG pCO2 at Pt Temp ABG pO2 at Pt Temp ABG HCO3 ABG O2 Sat (Measured) ABG O2 Content ABG Base Excess Francis Test O2 Delivery Device Oxygen Flow Rate PEEP Sodium 135 L Potassium 5.7 H D Chloride 93 L Carbon Dioxide 28 Anion Gap 14 BUN 18 D Creatinine 0.6 D Creat Clearance w eGFR > 60 POC Glucometer Random Glucose 254 H D Lactic Acid Calcium 8.9 Phosphorus Magnesium Total Bilirubin 0.3 D AST 24 D ALT 23 D Alkaline Phosphatase 165 H D Creatine Kinase 64 Troponin I < 0.02 B-Natriuretic Peptide Total Protein 6.6 Albumin 3.0 L Urine Color Urine Appearance Urine pH Ur Specific [place] Urine Protein Urine Glucose (UA) Urine Ketones Urine Blood Urine Nitrite Urine Bilirubin Urine Urobilinogen Ur Leukocyte Esterase Urine RBC Urine WBC Hyaline Casts Urine Mucus 04/23/17 04/23/17 04/23/17 13:00 13:15 14:15 WBC 16.6 H D Corrected WBC (auto) RBC 4.25 Hgb 11.5 Hct 36.1 MCV 84.9 MCHC 32.0 RDW 18.7 H Plt Count 327 MPV 7.2 L Neutrophils % 92.0 H Lymphocytes % 8.0 D Monocytes % Eosinophils % Basophils % Differential Comment Manual diff done Smudge Cells Platelet Estimate Adequate Platelet Comment RBC Morphology INR PTT (Actin FS) Puncture Site ABG pH ABG pCO2 at Pt Temp ABG pO2 at Pt Temp ABG HCO3 ABG O2 Sat (Measured) ABG O2 Content ABG Base Excess Francis Test O2 Delivery Device Oxygen Flow Rate PEEP Sodium Potassium Chloride Carbon Dioxide Anion Gap BUN Creatinine Creat Clearance w eGFR POC Glucometer Random Glucose Lactic Acid 4.1 H* Calcium Phosphorus 2.9 Magnesium Total Bilirubin AST ALT Alkaline Phosphatase Creatine Kinase Troponin I B-Natriuretic Peptide 98.26 Total Protein Albumin Urine Color Urine Appearance Urine pH Ur Specific [place] Urine Protein Urine Glucose (UA) Urine Ketones Urine Blood Urine Nitrite Urine Bilirubin Urine Urobilinogen Ur Leukocyte Esterase Urine RBC Urine WBC Hyaline Casts Urine Mucus 04/23/17 04/23/17 04/23/17 14:39 14:50 18:00 WBC Corrected WBC (auto) RBC Hgb Hct MCV MCHC RDW Plt Count MPV Neutrophils % Lymphocytes % Monocytes % Eosinophils % Basophils % Differential Comment Smudge Cells Platelet Estimate Platelet Comment RBC Morphology INR PTT (Actin FS) Puncture Site ABG pH ABG pCO2 at Pt Temp ABG pO2 at Pt Temp ABG HCO3 ABG O2 Sat (Measured) ABG O2 Content ABG Base Excess Francis Test O2 Delivery Device Oxygen Flow Rate PEEP Sodium Potassium Chloride Carbon Dioxide Anion Gap BUN Creatinine Creat Clearance w eGFR POC Glucometer 294 Random Glucose Lactic Acid 3.4 H* Calcium Phosphorus Magnesium Total Bilirubin AST ALT Alkaline Phosphatase Creatine Kinase Troponin I B-Natriuretic Peptide Total Protein Albumin Urine Color Ltyellow Urine Appearance Clear Urine pH 7.0 Ur Specific [place] 1.020 Urine Protein 1+ H Urine Glucose (UA) 1+ H Urine Ketones Negative Urine Blood Negative Urine Nitrite Negative Urine Bilirubin Negative Urine Urobilinogen Negative Ur Leukocyte Esterase Negative Urine RBC 1 Urine WBC <1 Hyaline Casts 3 Urine Mucus Rare 04/23/17 04/23/17 04/24/17 18:45 22:54 05:35 WBC 10.7 H D Corrected WBC (auto) RBC 3.79 Hgb 10.5 L Hct 31.9 L MCV 84.3 MCHC 32.8 RDW 18.3 H Plt Count 295 MPV 7.3 L Neutrophils % 95.6 H Lymphocytes % 2.8 L D Monocytes % 1.5 L Eosinophils % 0.0 Basophils % 0.1 Differential Comment Smudge Cells Platelet Estimate Platelet Comment RBC Morphology INR PTT (Actin FS) Puncture Site Left radial ABG pH 7.38 ABG pCO2 at Pt Temp 43.8 D ABG pO2 at Pt Temp 103.0 H D ABG HCO3 25.3 ABG O2 Sat (Measured) 98.1 ABG O2 Content 14.9 L ABG Base Excess 0.6 Francis Test Positive O2 Delivery Device Nasal cannula Oxygen Flow Rate 3lpm PEEP 0.0 Sodium Potassium Chloride Carbon Dioxide Anion Gap BUN Creatinine Creat Clearance w eGFR POC Glucometer 233 Random Glucose Lactic Acid Calcium Phosphorus Magnesium Total Bilirubin AST ALT Alkaline Phosphatase Creatine Kinase Troponin I B-Natriuretic Peptide Total Protein Albumin Urine Color Urine Appearance Urine pH Ur Specific [place] Urine Protein Urine Glucose (UA) Urine Ketones Urine Blood Urine Nitrite Urine Bilirubin Urine Urobilinogen Ur Leukocyte Esterase Urine RBC Urine WBC Hyaline Casts Urine Mucus 04/24/17 04/24/17 04/24/17 05:35 06:24 07:50 WBC Corrected WBC (auto) RBC Hgb Hct MCV MCHC RDW Plt Count MPV Neutrophils % Lymphocytes % Monocytes % Eosinophils % Basophils % Differential Comment Smudge Cells Platelet Estimate Platelet Comment RBC Morphology INR PTT (Actin FS) Puncture Site ABG pH ABG pCO2 at Pt Temp ABG pO2 at Pt Temp ABG HCO3 ABG O2 Sat (Measured) ABG O2 Content ABG Base Excess Francis Test O2 Delivery Device Oxygen Flow Rate PEEP Sodium 142 Potassium 4.0 D Chloride 102 Carbon Dioxide 25 Anion Gap 15 BUN 15 Creatinine 0.5 L Creat Clearance w eGFR > 60 POC Glucometer 172 Random Glucose 208 H Lactic Acid 1.2 Calcium 8.1 L Phosphorus Magnesium 2.2 Total Bilirubin 0.2 D AST 8 L D ALT 22 Alkaline Phosphatase 143 H Creatine Kinase Troponin I B-Natriuretic Peptide Total Protein 6.0 L Albumin 2.7 L Urine Color Urine Appearance Urine pH Ur Specific [place] Urine Protein Urine Glucose (UA) Urine Ketones Urine Blood Urine Nitrite Urine Bilirubin Urine Urobilinogen Ur Leukocyte Esterase Urine RBC Urine WBC Hyaline Casts Urine Mucus 04/24/17 07:50 WBC Corrected WBC (auto) RBC Hgb Hct MCV MCHC RDW Plt Count MPV Neutrophils % Lymphocytes % Monocytes % Eosinophils % Basophils % Differential Comment Smudge Cells Platelet Estimate Platelet Comment RBC Morphology INR PTT (Actin FS) Puncture Site ABG pH ABG pCO2 at Pt Temp ABG pO2 at Pt Temp ABG HCO3 ABG O2 Sat (Measured) ABG O2 Content ABG Base Excess Francis Test O2 Delivery Device Oxygen Flow Rate PEEP Sodium Potassium Chloride Carbon Dioxide Anion Gap BUN Creatinine Creat Clearance w eGFR POC Glucometer Random Glucose Lactic Acid Calcium Phosphorus Magnesium Total Bilirubin AST ALT Alkaline Phosphatase Creatine Kinase Troponin I < 0.02 B-Natriuretic Peptide Total Protein Albumin Urine Color Urine Appearance Urine pH Ur Specific [place] Urine Protein Urine Glucose (UA) Urine Ketones Urine Blood Urine Nitrite Urine Bilirubin Urine Urobilinogen Ur Leukocyte Esterase Urine RBC Urine WBC Hyaline Casts Urine Mucus Active Medications Generic Name Dose Route Start Last Admin Trade Name Freq PRN Reason Stop Dose Admin Acetaminophen 650 mg 04/23/17 16:30 04/24/17 08:03 Tylenol - PO 650 mg Q6H PRN Administration FEVER OR PAIN Albuterol/Ipratropium 1 amp 04/23/17 18:00 04/24/17 06:56 Duoneb - NEB 1 amp Q4HPO EMMY Administration Alprazolam 0.25 mg 04/23/17 22:00 04/23/17 22:45 Xanax - PO 0.25 mg BID EMMY Administration Budesonide/Formoterol Fumarate 2 puff 04/23/17 22:00 04/23/17 22:47 Symbicort 160/4.5mcg - IH 2 puff BID EMMY Administration Cefepime HCl 1 gm 04/24/17 10:00 Maxipime (Restricted To Id) - IVPB Q8H-IV [facility] Protocol Cholecalciferol 2,000 unit 04/24/17 10:00 Vitamin D3 - PO DAILY EMMY Cyproheptadine HCl 4 mg 04/23/17 22:00 04/24/17 06:31 Periactin - PO 4 mg TID EMMY Administration Diltiazem HCl 360 mg 04/24/17 10:00 Cardizem Cd - PO DAILY EMMY Eletriptan 40 mg 04/24/17 09:30 Relpax - PO 04/24/17 09:31 ONCE ONE Eletriptan 40 mg 04/24/17 09:31 Relpax - PO Q6HPO PRN HEADACHE Guaifenesin 600 mg 04/24/17 10:00 Mucinex - PO BID EMMY Heparin Sodium (Porcine) 5,000 unit 04/23/17 22:00 04/24/17 06:32 Heparin - SQ 5,000 unit TID EMMY Administration Insulin Aspart 1 vial 04/23/17 18:36 04/24/17 06:31 Novolog Vial Sliding Scale - SQ 6 units ACHS EMMY Administration Protocol Insulin Detemir 5 units 04/23/17 22:00 04/24/17 06:31 Levemir Vial SQ 5 units BID@0700,2200 EMMY Administration Lactobacillus Acidophilus 1 tab 04/23/17 22:00 04/23/17 22:45 Bacid - PO 1 tab BID EMMY Administration Levothyroxine Sodium 25 mcg 04/24/17 07:00 04/24/17 08:04 Synthroid - PO 25 mcg DAILY@0700 EMMY Administration Methylprednisolone Sodium Succinate 60 mg 04/24/17 09:43 Solu-Medrol - IVPB Q6H-IV EMMY Methylprednisolone Sodium Succinate 20 mg 04/24/17 09:44 Solu-Medrol - IVPB 04/24/17 09:45 ONCE ONE Morphine Sulfate 1 mg 04/24/17 09:34 Morphine Injection - IVPUSH 04/24/17 09:35 ONCE ONE Morphine Sulfate 1 mg 04/24/17 09:42 Morphine Injection - IVPUSH Q4H PRN PAIN Multi-Ingredient Ointment 1 applic 04/23/17 22:00 Zinc Oxide TP BID EMMY Nystatin 1 applic 04/24/17 10:00 Nystop Powder - TP DAILY EMMY Nystatin 1 applic 04/23/17 21:00 Mycostatin Ointment - TP BID EMMY Ondansetron HCl 4 mg 04/23/17 16:30 04/23/17 22:45 Zofran - PO 4 mg Q4H PRN Administration NAUSEA Pancrelipase 3 cap 04/23/17 17:30 Eamon Turner 6,000 Units Capsule PO TIDCM EMMY Polyethylene Glycol 17 gm 04/24/17 10:00 Miralax (For Daily Use) - PO DAILY EMMY Ranitidine HCl 150 mg 04/24/17 10:00 Zantac - PO DAILY EMMY Roflumilast 500 mcg 04/24/17 10:00 Daliresp - PO DAILY EMMY Simethicone 80 mg 04/23/17 22:00 04/24/17 06:32 Mylicon - PO 80 mg TID EMMY Administration ASSESSMENT/PLAN: Patient is a 51 year old female with a significant past medical history of COPD (home oxygen dependent), asthma, inbutation, tracheostomy, morbid obesity, hypertension, hypercholesterolemia, paroxysmal atrial fibrillation (no on any anticoagulation secondary to hx of GI bleed), anxiety, depression, bipolar disorder and uterine cancer. She was sent by her PCP Dr. Estrada after she presented to his office in mild respiratory distress with diffuse wheezes and tachycardia. Patient reports that she has a chronic productive cough with yellow pheghm. She denies any chest pain, palpitations, nausea or vomiting. She denies abdominal pain. Imaging: Chest Xray 04/23/2017: Old left rib fracture, no evidence of pneumothorax or pleural effusion, no acute lung disease Pulmonary: Respiratory Failure secondary to acute COPD exacerbation Assessment/Plan: Tolerating 2-3 liters of nasal cannula with saturations above 90% Alternated with cpap therapy which has been ordered Today appears to be in moderate respiratory distress, + congestion/bilateral lung garcia Goal is to keep oxygen saturations >90% on 2-3 liters of nasal cannula Sputum culture pending Support with duonebs, symbicort and asmanex and Solumedrol increased to 60mg q6 Aspiration precautions ABGs reviewed Pulmonary following Continue to monitor respiratory status ID: Pneumonia/Leukocytosis/Lactic acidosis - improving Assessment/Plan: Given dose of Ceftazidime in ED, Received Zosyn yesterday started on Cefepime 1gram by ID as pt has hx of pseudomonas Blood cultures, urine cultures pending WBC trending down Monitor CBC Lactic acidosis now resolved Psyche: Bipolar/anxiety/depression Assessment/Plan: continue psyche home meds Endocrine: Diabetes mellitus - chronic Assessment/Plan: Novolog sliding scale Monitor BGMs while on steroids Cardiology: Paroxysmal Atrial Fib Assessment/Plan: currently in atrial fib - On Cardizem 360mg Troponins negative Cardiology consult F.E.N Fluid: tolerating PO Electrolytes: Monitor labs Nutrition: soft diet Prophylaxis DVT: SCD, heparin SQ GI: Zantac Disposition: Requires inpatient hospitalization. Visit type - Emergency Visit Emergency Visit: Yes ED Registration Date: 04/23/17 Care time: The patient presented to the Emergency Department on the above date and was hospitalized for further evaluation of their emergent condition. - New Patient This patient is new to me today: No - Critical Care Critical Care patient: No - Discharge Referral Referred to [facility] Med [facility] No
--- NOTE | 2017-04-24 10:11 | CONS ---
DATE OF CONSULTATION: DATE OF DICTATION: 04/24/2017 HISTORY OF PRESENT ILLNESS: The patient is a 51-year-old female with a history of COPD with multiple recent acute exacerbations and recent intubation evaluated for sepsis. The patient was admitted to the hospital with increasing shortness of breath, wheezing, and tachycardia. She had seen her otolaryngology physician and was referred to the emergency room. Patient was in respiratory distress. She reports cough productive of yellowish sputum. She was admitted with a diagnosis of acute exacerbation and COPD and treated with intravenous corticosteroids and inhaled bronchodilators. Chest x-ray was negative for acute infiltrate. She was empirically treated with ceftazidime. Patient has a history of pseudomonas in the sputum in the recent past. She was also noted to have an elevated white blood cell count and elevated serum lactic acid level. At the present time, she is short of breath. She is using accessory muscles of respiration. She reports cough productive of yellowish sputum. She denies any chest pain or hemoptysis. No complaints of fever or chills. PAST MEDICAL HISTORY: Positive for COPD with multiple recent acute exacerbations, history of intubation and ICU admission, hypertension, hyperlipidemia, paroxysmal atrial fibrillation, chronic low back pain on opiate analgesics, morbid obesity. ALLERGIES: To OXYCODONE, ASPIRIN, FENTANYL. PAST SURGICAL HISTORY: Status post appendectomy, hysterectomy, bowel resection, and back surgery. MEDICATIONS: Include Zofran, Symbicort, Solu-Medrol, Tylenol, heparin, Xanax, Cardizem, Periactin, Zantac, Synthroid. SOCIAL HISTORY: She is a former smoker. She is residing in a long-term facility. SYSTEMS REVIEW: Neurologic: No loss of consciousness, seizure activity, or focal weakness. Cardiac: Negative for chest pain or palpitations. Respiratory: As per HPI. Gastrointestinal: Negative for vomiting or diarrhea. Genitourinary: Negative for urinary tract infection. LABORATORY DATA: White count on admission 16.6, presently 10.7, hematocrit 31.9, platelet count 295. BUN 15, creatinine 0.5, lactic acid 4.1. Urinalysis less than 1 white cell. Chest x-ray negative for acute infiltrate. PHYSICAL EXAMINATION: General: She is in moderate distress. She is short of breath at rest with accessory muscle use. Vital signs: Temperature 98.9, blood pressure 141/96, pulse 117 and regular, respirations 26 per minute. HEENT: Sclerae anicteric. Patient is Cushingoid. Heart: Heart sounds tachycardic S1, S2. Lungs: Diminished breath sounds bilaterally. Abdomen: Obese, soft. No tenderness elicited. Extremities: Negative for edema. IMPRESSION: 1. Acute exacerbation chronic obstructive pulmonary disease. 2. Acute on chronic bronchitis. 3. History of positive sputum culture pseudomonas. 4. Leukocytosis, possible sepsis. 5. Lactic acidosis. Await culture results, empiric antibiotic coverage with cefepime directed at previously isolated pseudomonas, bronchodilators, intravenous corticosteroids, pulmonary followup. Thank you for the kind referral. DENISHA ALMANZAR M.D. [id number]
[2017-04-24] MEDS ORDERED: methylPREDNISolone NA SUCC 40 MG/1 ML VIAL IVPB ONE (10:30)
[2017-04-24] MEDS ORDERED: ELETRIPTAN HYDROBROMIDE 40 MG TABLET PO ONE (10:30)
[2017-04-24] MEDS: POLYETHYLENE GLYCOL 3350 119 GM BTL PO SCH (11:33)
--- NOTE | 2017-04-24 11:33 | PN ---
Progress Note, Physician History of Present Illness: pulmonary drowsy on bipap,still congested - Current Medication List Current Medications: Active Medications Acetaminophen (Tylenol -) 650 mg PO Q6H PRN PRN Reason: FEVER OR PAIN Last Admin: 04/24/17 08:03 Dose: 650 mg Albuterol/Ipratropium (Duoneb -) 1 amp NEB Q4HPO [facility] Last Admin: 04/24/17 06:56 Dose: 1 amp Alprazolam (Xanax -) 0.25 mg PO BID [facility] Last Admin: 04/24/17 09:43 Dose: 0.25 mg Budesonide/Formoterol Fumarate (Symbicort 160/4.5mcg -) 2 puff IH BID [facility] Last Admin: 04/24/17 09:46 Dose: 2 puff Cefepime HCl (Maxipime 1gm Ivpb Pre-Docked) 1 gm IVPB Q8H-IV [facility]MMY PRN Reason: Protocol Cholecalciferol (Vitamin D3 -) 2,000 unit PO DAILY [facility] Last Admin: 04/24/17 09:44 Dose: 2,000 unit Cyproheptadine HCl (Periactin -) 4 mg PO TID [facility] Last Admin: 04/24/17 06:31 Dose: 4 mg Diltiazem HCl (Cardizem Cd -) 360 mg PO DAILY [facility] Last Admin: 04/24/17 09:45 Dose: 360 mg Eletriptan (Relpax -) 40 mg PO Q6HPO PRN PRN Reason: HEADACHE Guaifenesin (Mucinex -) 600 mg PO BID [facility] Heparin Sodium (Porcine) (Heparin -) 5,000 unit SQ TID [facility] Last Admin: 04/24/17 06:32 Dose: 5,000 unit Insulin Aspart (Novolog Vial Sliding Scale -) 1 vial SQ ACHS [facility] PRN Reason: Protocol Last Admin: 04/24/17 06:31 Dose: 6 units Insulin Detemir (Levemir Vial) 5 units SQ BID@0700,2200 [facility] Last Admin: 04/24/17 06:31 Dose: 5 units Lactobacillus Acidophilus (Bacid -) 1 tab PO BID [facility] Last Admin: 04/24/17 09:43 Dose: 1 tab Levothyroxine Sodium (Synthroid -) 25 mcg PO DAILY@0700 [facility] Last Admin: 04/24/17 08:04 Dose: 25 mcg Methylprednisolone Sodium Succinate (Solu-Medrol -) 60 mg IVPB Q6H-IV [facility]MM[facility] Morphine Sulfate (Morphine Injection -) 1 mg IVPUSH Q4H PRN PRN Reason: PAIN Multi-Ingredient Ointment (Zinc Oxide) 1 applic TP BID [facility] Nystatin (Nystop Powder -) 1 applic TP DAILY [facility] Nystatin (Mycostatin Ointment -) 1 applic TP BID [facility] Ondansetron HCl (Zofran -) 4 mg PO Q4H PRN PRN Reason: NAUSEA Last Admin: 04/23/17 22:45 Dose: 4 mg Pancrelipase (Creon Dr 6,000 Units Capsule) 3 cap PO TIDCM [facility] Last Admin: 04/24/17 09:46 Dose: 3 cap Polyethylene Glycol (Miralax (For Daily Use) -) 17 gm PO DAILY [facility] Ranitidine HCl (Zantac -) 150 mg PO DAILY [facility] Last Admin: 04/24/17 09:44 Dose: 150 mg Roflumilast (Daliresp -) 500 mcg PO DAILY [facility] Last Admin: 04/24/17 09:44 Dose: 500 mcg Simethicone (Mylicon -) 80 mg PO TID [facility] Last Admin: 04/24/17 06:32 Dose: 80 mg - Objective Vital Signs: Vital Signs Temperature 98 F 04/24/17 10:00 Pulse Rate 119 H 04/24/17 10:10 Respiratory Rate 28 H 04/24/17 10:00 Blood Pressure 140/90 04/24/17 10:00 O2 Sat by Pulse Oximetry (%) 98 04/24/17 10:10 Constitutional: Yes: Well Nourished, Other (drowsy) Eyes: Yes: WNL HENT: Yes: WNL Neck: Yes: WNL Cardiovascular: Yes: Regular Rate and Rhythm, S1, S2 Respiratory: Yes: Rhonchi, Wheezes (bilateral wheezes and rhonchi) Gastrointestinal: Yes: Normal Bowel Sounds, Soft Extremities: Yes: WNL Edema: No Labs: CBC, BMP 04/24/17 05:35 04/24/17 05:35 INR, PTT INR 0.97 (0.82-1.09) 04/23/17 13:00 Laboratory Tests 04/23/17 18:45 ABG pH 7.38 ABG pCO2 at Pt Temp 43.8 D ABG pO2 at Pt Temp 103.0 H D ABG HCO3 25.3 ABG O2 Sat (Measured) 98.1 Oxygen Flow Rate 3lpm Problem List - Problems (1) Acute exacerbation of COPD with asthma Code(s): J44.1 - CHRONIC OBSTRUCTIVE PULMONARY DISEASE W (ACUTE) EXACERBATION J45.901 - UNSPECIFIED ASTHMA WITH (ACUTE) EXACERBATION (2) COPD (chronic obstructive pulmonary disease) case management patient Code(s): DWG3172 - (3) Chronic back pain Code(s): M54.9 - DORSALGIA, UNSPECIFIED G89.29 - OTHER CHRONIC PAIN (4) HTN (hypertension) Code(s): I10 - ESSENTIAL (PRIMARY) HYPERTENSION Qualifiers: (5) Hyperlipidemia Code(s): E78.5 - HYPERLIPIDEMIA, UNSPECIFIED (6) Paroxysmal atrial fibrillation Code(s): I48.0 - PAROXYSMAL ATRIAL FIBRILLATION (7) Obesity (BMI 30.0-34.9) Code(s): E66.9 - OBESITY, UNSPECIFIED (8) Lactic acidosis Code(s): E87.2 - ACIDOSIS (9) Acute and chronic respiratory failure with hypoxia Code(s): J96.21 - ACUTE AND CHRONIC RESPIRATORY FAILURE WITH HYPOXIA Assessment/Plan Assessment/Plan ACUTE ON CHRONIC HYPOXEMIC RESPIRATORY FAILURE COPD O2 DPENDENT WITH ACUTE EXACERBATION LIKELY ACUTE BRONCHITIS PAF HTN HLD PLAN IV MEDROL SAME DOSE INHALED BRONCHODILATORS BIPAP NEEDED ABG PRN ANTIBIOTICS PER ID DVT PROPHYLAXIX GI PROPHYLAXIS DR RUFFIN
[2017-04-24] MEDS: guaiFENesin 600 MG TABLET.ER (FP) PO SCH ×2 (12:02→22:07)
[2017-04-24] MEDS: CEFEPIME 1 GM/100 ML BAG PRE-DOCKED IVPB SCH ×2 (12:05→17:04)
[2017-04-24] MEDS: ZINC OXIDE 20% TOPICAL OINTMENT 30 GM TUBE TP SCH ×2 (12:16→22:08)
[2017-04-24] MEDS: NYSTATIN 100000 UNIT/GM TOPICAL OINTMENT 15 GM TUBE TP SCH ×2 (12:17→22:08)
[2017-04-24] MEDS: NYSTATIN POWDER 100,000 UNITS/GM - 15 GM TOPICAL POWDER TP SCH (12:17)
--- NOTE | 2017-04-24 12:37 | CON.CARD ---
Consult Consult Specialty:: Cardiology Referred by:: Hospitalist Medicine Reason for Consultation:: PAF - History of Present Illness Chief Complaint: Dyspnea History of Present Illness: 51 yo female w/ HTN, paroxysmal atrial fibrillation (not on AC 2/2 h/o GI bleed) , DM, COPD, inbutation, tracheostomy, morbid obesity admitted with COPD flare in moderate respiratory distress with diffuse wheezes, tachycardia, chronic productive cough with yellow pheghm, now resting comfortably with BD, steroids, abx. - History Source History Provided By: Medical Record Limitations to Obtaining History: Poor Historian - Past Medical History Cardio/Vascular: Yes: AFIB (Paroxysmal), HTN, Hyperlipdemia Pulmonary: Yes: Asthma, COPD, O2 Dependent Renal/: Yes: Cancer (Uterine), Other ([place] in the past) ...: No Infectious Disease: Yes: C-Diff (june 2014), Other (Osteomyelitis of thoracic spine) Psych: Yes: Anxiety, Bipolar, Depression Musculoskeletal: Yes: Chronic low back pain Additional Medical History: Frequent c/o abdominal pain-extensive w/u in the past negative. Presumed adhesions from prior surgeries. - Past Surgical History Past Surgical History: Yes: Hysterectomy (with BSO) - Alcohol/Substance Use Hx Alcohol Use: No - Smoking History Smoking history: Former smoker Have you smoked in the past 12 months: No Aproximately how many cigarettes per day: 3 If you are a former smoker, when did you quit?: 2013 - Social History Usual Living Arrangement: Snf 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) History of Recent Travel: No Home Medications - Allergies Allergies/Adverse Reactions: Allergies Allergy/AdvReac Type Severity Reaction Status Date / Time oxycodone [Oxycodone] Allergy Severe Nausea Verified 04/16/17 13:04 oxycodone HCl [From Percocet] Allergy Severe Nausea Verified 04/16/17 13:04 aspirin Allergy Mild Verified 04/16/17 13:04 blueberry [Blueberry] Allergy Mild Swelling Verified 04/16/17 13:04 fentanyl Allergy Verified 04/16/17 13:04 - Home Medications Home Medications: Ambulatory Orders Levothyroxine [Synthroid -] 25 mcg PO DAILY@0700 tablet 06/05/16 Albuterol 2.5/Ipratropium 0.5 [Duoneb -] 1 amp NEB Q4HPO amp 09/17/16 Budesonide/Formeterol Fumarate [SYMBICORT 160/4.5mcg -] 2 inh PO BID 11/01/16 Lactobacillus Acidophilus [Bacid -] 1 tab PO BID tab 11/20/16 Ondansetron [Zofran -] 4 mg PO Q4H PRN #0 tablet 11/20/16 Zinc Oxide 1 applic TP BID tube 11/20/16 Cholecalciferol (Vitamin D3) [Vitamin D3 -] 2,000 unit PO DAILY #30 tab Albuterol Sulfate Inhaler - [Ventolin HFA Inhaler -] 2 puff IH Q4H PRN #0 inhaler 11/29/16 Omeprazole Magnesium [Prilosec] 20 mg PO BID 03/21/17 Acetaminophen [Tylenol .Regular Strength -] 650 mg PO Q6H PRN #0 tablet Alprazolam [Xanax] 0.25 mg PO BID tablet MDD 2 03/27/17 Diltiazem Cd [Cardizem Cd -] 360 mg PO DAILY #30 tab 03/27/17 Insulin (Levemir) [Levemir Vial] 5 units SQ BID@0700,2200 #5 unit 03/27/17 Insulin Sliding Scale [Novolog Vial Sliding Scale -] 1 vial SQ ACHS units 03/27 Lipase/Protease/Amylase [Creon Dr 6,000 Units Capsule] 3 cap PO TIDCM #90 cap Nystatin Powder [Nystop Powder -] 1 applic TP DAILY applic 03/27/17 Oxycodone Sr [Oxycontin] 10 mg PO BID #60 tab MDD 20mg 03/27/17 Polyethylene Glycol 3350 [Miralax 119 gm Btl -] 17 gm PO BID bottle 03/27/17 Roflumilast [Daliresp -] 500 mcg PO DAILY tablet 03/27/17 Cyproheptadine [Periactin -] 4 mg PO Q8H 04/23/17 Loperamide HCl [Imodium A-D] 1 tab PO Q4H PRN 04/23/17 Ranitidine HCl [Zantac] 150 mg PO HS 04/23/17 Simethicone 80 mg PO TID 04/23/17 Sulfamethoxazole/Trimethoprim [Bactrim Ds -] 1 tab PO BID 04/23/17 Family Disease History - Family Disease History Family Disease History: Diabetes: Mother (heart surgery), Heart Disease: Mother , CA: Father (leukemia) Review of Systems - Review of Systems Respiratory: reports: Cough, SOB, Wheezing Vital Signs: Vital Signs Temperature 98 F 04/24/17 10:00 Pulse Rate 119 H 04/24/17 10:10 Respiratory Rate 28 H 04/24/17 10:00 Blood Pressure 140/90 04/24/17 10:00 O2 Sat by Pulse Oximetry (%) 98 04/24/17 10:10 Constitutional: Yes: No Distress, Calm Neck: Yes: Supple Respiratory: Yes: Regular, Diminished, On Nasal O2 Gastrointestinal: Yes: Normal Bowel Sounds, Soft, Abdomen, Obese Cardiovascular: Yes: Tachycardia JVD: No Carotid Bruit: No Heart Sounds: Yes: S1, S2 Edema: No - Other Data Labs, Other Data: CBC, BMP 04/24/17 05:35 04/24/17 05:35 INR, PTT INR 0.97 (0.82-1.09) 04/23/17 13:00 Troponin, BNP 04/23/17 04/23/17 04/24/17 13:00 14:15 07:50 Troponin I < 0.02 < 0.02 B-Natriuretic Peptide 98.26 Troponin, BNP 04/23/17 04/23/17 04/24/17 13:00 14:15 07:50 Troponin I < 0.02 < 0.02 B-Natriuretic Peptide 98.26 ST Ejection Fraction %: LVEF > or = 40 % Imaging - Results Chest X-ray: Report Reviewed (NAD) EKG: Report Reviewed (ST @ 118) Problem List - Problems (1) Acute and chronic respiratory failure with hypoxia Code(s): J96.21 - ACUTE AND CHRONIC RESPIRATORY FAILURE WITH HYPOXIA (2) HTN (hypertension) Code(s): I10 - ESSENTIAL (PRIMARY) HYPERTENSION Qualifiers: Hypertension type: essential hypertension Qualified Code(s): I10 - Essential (primary) hypertension (3) Hyperlipidemia Code(s): E78.5 - HYPERLIPIDEMIA, UNSPECIFIED Qualifiers: Hyperlipidemia type: pure hypercholesterolemia Qualified Code(s): E78.00 - Pure hypercholesterolemia, unspecified; E78.0 - Pure hypercholesterolemia (4) Paroxysmal atrial fibrillation Code(s): I48.0 - PAROXYSMAL ATRIAL FIBRILLATION (5) Acute exacerbation of chronic bronchitis Code(s): 466.0 - ACUTE BRONCHITIS (6) Diabetes mellitus Code(s): E11.9 - TYPE 2 DIABETES MELLITUS WITHOUT COMPLICATIONS Qualifiers: Diabetes mellitus type: type 2 (7) Hypothyroid Code(s): E03.9 - HYPOTHYROIDISM, UNSPECIFIED Qualifiers: Hypothyroidism type: unspecified Qualified Code(s): E03.9 - Hypothyroidism, unspecified Assessment/Plan 04/03/16 Dobutamine nuclear stress test at [facility] demonstrated normal myocardial perfusion, normal LVEF, & negative ECG. 1. Acute on chronic hypoxemic respiratory failure referable to AE O2-dependent COPD improved 2. Sinus tachycardia referable to #1 3. PAF->SR not on a/c due to h/o GI bleed 4. HTN 5. Hyperlipidemia 6. Hypothyroidism 7. Insulin-dependent Type 2 DM PLAN 1. IV steroids, BD, empiric abx, O2, Daliresp, bipap nightly as needed 2. Continue Cardizem CD 360 qd 3. DVT and GI prophylaxis 4. 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 Jaquez, upon d/c 5. Thank you for consultative opportunity
[2017-04-24] MEDS: DOXEPIN HCL 10 MG CAPSULE PO SCH (23:44)
[2017-04-24] MEDS: BACLOFEN 10 MG TABLET (FP) PO SCH (23:44)
[2017-04-25] MEDS: ALBUTEROL SO4 2.5/IPRATROPIUM 0.5 INH SOL 3 ML VIAL.NEB. NEB SCH ×6 (01:31→22:45)
[2017-04-25] MEDS: methylPREDNISolone NA SUCC 40 MG/1 ML VIAL IVPB SCH ×4 (02:04→22:14)
[2017-04-25] MEDS: morphine CARPU-JECT 2 MG/1 ML DISP.SYRIN IVPUSH PRN ×5 (02:04→20:29)
[2017-04-25] MEDS: CEFEPIME 1 GM/100 ML BAG PRE-DOCKED IVPB SCH ×3 (02:04→17:31)
[2017-04-25] MEDS: LEVOTHYROXINE NA 25 MCG TABLET (FP) PO SCH (06:12)
[2017-04-25] MEDS: HEPARIN NA (PORCINE) 5,000 UNITS/ML 1ML VIAL SQ SCH ×3 (06:12→22:16)
[2017-04-25] MEDS: BACLOFEN 10 MG TABLET (FP) PO SCH ×3 (06:12→22:14)
[2017-04-25] MEDS: SIMETHICONE 80 MG TAB.CHEW (FP) PO SCH ×3 (06:12→22:14)
[2017-04-25] MEDS: CYPROHEPTADINE HCL 4 MG TABLET PO SCH ×3 (06:14→22:24)
[2017-04-25] MEDS: INSULIN DETEMIR 100 UNITS/ML MDV SQ SCH ×2 (06:27→22:24)
[2017-04-25] MEDS: INSULIN SLIDING SCALE (NOVOLOG) 1 VIAL SQ SCH ×4 (06:28→22:24)
[2017-04-25] MEDS ORDERED: PT OWN MED DRAWER 7, Y5N ONE ×4 (07:55→22:23)
[2017-04-25] MEDS: ELETRIPTAN HYDROBROMIDE 40 MG TABLET PO PRN ×2 (07:58→22:24)
--- NOTE | 2017-04-25 08:35 | PN ---
Physical Exam: SUBJECTIVE: Patient seen and examined, says she slept most of the night, denies chest pain or shortness of breath. States she feels her breathing is better today. 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 Can speak in full sentences. HEAD: Normal with no signs of trauma. EYES: Pupils equal, round and reactive to light, extraocular movements intact, sclera anicteric, conjunctiva clear. No lid lag. EARS, NOSE, THROAT: Ears normal, nares patent, Endotracheal tube in place, Dry mucousa NECK: Normal range of motion, supple without lymphadenopathy, JVD, or masses. LUNGS: less congestion, scattered rhonchi, mild wheezing - improving HEART: Sinus tachycardia on stained glass artist ABDOMEN: Soft, obese, nontender, not distended, normoactive bowel sounds, no guarding, no rebound, no masses. No hepatomegaly or splenomegaly. MUSCULOSKELETAL: Normal range of motion at all joints. No bony deformities or tenderness. No CVA tenderness. UPPER EXTREMITIES: 2+ pulses, warm, well-perfused. No cyanosis. No clubbing. No peripheral edema. LOWER EXTREMITIES: 2+ pulses, warm, well-perfused. No calf tenderness. No peripheral edema. NEUROLOGICAL: Gait not observed, bed bound PSYCHIATRIC: Periods of agitation, anxiety SKIN: Eccyhmotic bruising to abdomen noted. Warm, dry, normal turgor, no rashes. normal capillary refill. +fungal rash of buttocks - nystatin ordered Laboratory Results - last 24 hr 04/24/17 04/24/17 04/24/17 07:50 07:50 11:34 POC Glucometer 152 Lactic Acid 1.2 Troponin I < 0.02 04/24/17 04/24/17 04/25/17 15:55 22:18 06:17 POC Glucometer 166 110 187 Lactic Acid Troponin I Active Medications Generic Name Dose Route Start Last Admin Trade Name Freq PRN Reason Stop Dose Admin Acetaminophen 650 mg 04/23/17 16:30 04/24/17 08:03 Tylenol - PO 650 mg Q6H PRN Administration FEVER OR PAIN Albuterol/Ipratropium 1 amp 04/23/17 18:00 04/25/17 05:53 Duoneb - NEB 1 amp Q4HPO EMMY Administration Alprazolam 0.25 mg 04/23/17 22:00 04/24/17 22:07 Xanax - PO 0.25 mg BID EMMY Administration Baclofen 10 mg 04/24/17 23:45 04/25/17 06:12 Lioresal - PO 10 mg TID EMMY Administration Budesonide/Formoterol Fumarate 2 puff 04/23/17 22:00 04/24/17 22:25 Symbicort 160/4.5mcg - IH 2 puff BID EMMY Administration Cefepime HCl 1 gm 04/24/17 10:30 04/25/17 02:04 Maxipime 1gm Ivpb Pre-Docked IVPB 1 gm Q8H-IV EMM[facility] Administration Protocol Cholecalciferol 2,000 unit 04/24/17 10:00 04/24/17 09:44 Vitamin D3 - PO 2,000 unit DAILY EMM[facility] Administration Cyproheptadine HCl 4 mg 04/23/17 22:00 04/25/17 06:14 Periactin - PO 4 mg TID EMMY Administration Diltiazem HCl 360 mg 04/24/17 10:00 04/24/17 09:45 Cardizem Cd - PO 360 mg DAILY EMM[facility] Administration Doxepin HCl 10 mg 04/24/17 22:00 04/24/17 23:44 Sinequan - PO 10 mg HS EMMY Administration Eletriptan 40 mg 04/24/17 09:31 04/25/17 07:58 Relpax - PO 40 mg Q6HPO PRN Administration HEADACHE Guaifenesin 600 mg 04/24/17 10:30 04/24/17 22:07 Mucinex - PO 600 mg BID EMMY Administration Heparin Sodium (Porcine) 5,000 unit 04/23/17 22:00 04/25/17 06:12 Heparin - SQ 5,000 unit TID EMM[facility] Administration Insulin Aspart 1 vial 04/23/17 18:36 04/25/17 06:28 Novolog Vial Sliding Scale - SQ 4 units ACHS E[facility] Administration Protocol Insulin Detemir 5 units 04/23/17 22:00 06/03/17 06:27 Levemir Vial SQ 5 units BID@0700,2200 EMM[facility] Administration Lactobacillus Acidophilus 1 tab 04/23/17 22:00 04/24/17 22:07 Bacid - PO 1 tab BID EMMY Administration Levothyroxine Sodium 25 mcg 04/24/17 07:00 04/25/17 06:12 Synthroid - PO 25 mcg DAILY@0700 E[facility] Administration Methylprednisolone Sodium Succinate 60 mg 04/24/17 15:00 04/25/17 02:04 Solu-Medrol - IVPB 60 mg Q6H-IV EMMY Administration Morphine Sulfate 1 mg 04/24/17 09:42 04/25/17 02:04 Morphine Injection - IVPUSH 1 mg Q4H PRN Administration PAIN Multi-Ingredient Ointment 1 applic 04/23/17 22:00 04/24/17 22:08 Zinc Oxide TP 1 applic BID EMM[facility] Administration Nystatin 1 applic 04/24/17 10:00 04/24/17 12:17 Nystop Powder - TP 1 applic DAILY [facility] Administration Nystatin 1 applic 04/23/17 21:00 04/24/17 22:08 Mycostatin Ointment - TP 1 applic BID [facility] Administration Ondansetron HCl 4 mg 04/23/17 16:30 04/23/17 22:45 Zofran - PO 4 mg Q4H PRN Administration NAUSEA Pancrelipase 3 cap 04/23/17 17:30 04/24/17 17:[address] 6,000 Units Capsule PO Not Given TIDCM [facility] Polyethylene Glycol 17 gm 04/24/17 10:00 04/24/17 11:33 Miralax (For Daily Use) - PO Not Given DAILY [facility] Ranitidine HCl 150 mg 04/24/17 10:00 04/24/17 09:44 Zantac - PO 150 mg DAILY [facility] Administration Roflumilast 500 mcg 04/24/17 10:00 04/24/17 09:44 Daliresp - PO 500 mcg DAILY [facility] Administration Simethicone 80 mg 04/23/17 22:00 04/25/17 06:12 Mylicon - PO 80 mg TID [facility] Administration ASSESSMENT/PLAN: Patient is a 51 year old female with a significant past medical history of COPD (home oxygen dependent), asthma, inbutation, tracheostomy, morbid obesity, hypertension, hypercholesterolemia, paroxysmal atrial fibrillation (no on any anticoagulation secondary to hx of GI bleed), anxiety, depression, bipolar disorder and uterine cancer. She was sent by her PCP Dr. Estrada after she presented to his office in mild respiratory distress with diffuse wheezes and tachycardia. Patient reports that she has a chronic productive cough with yellow pheghm. She denies any chest pain, palpitations, nausea or vomiting. She denies abdominal pain. Imaging: Chest Xray 04/23/2017: Old left rib fracture, no evidence of pneumothorax or pleural effusion, no acute lung disease Pulmonary: Respiratory Failure secondary to acute COPD exacerbation - improving Assessment/Plan: Tolerating 2-3 liters of nasal cannula with saturations above 90% Alternated with bipap therapy @ night Less congestion of bilateral lung garcia Goal is to keep oxygen saturations >90% on 2-3 liters of nasal cannula Sputum culture pending Continue support with duonebs, symbicort and Solumedrol 60mg q6 Aspiration precautions ABGs reviewed Pulmonary following Continue to monitor respiratory status ID: Pneumonia/Leukocytosis/Lactic acidosis - improving Assessment/Plan: On admission given dose of Ceftazidime and Zosyn started on Cefepime 1gram by ID as pt has hx of pseudomonas Blood cultures with no growth to date, urine cultures pending WBC trending down 16>10.7 Lactic acidosis now resolved Psyche: Bipolar/anxiety/depression Assessment/Plan: continue psyche home meds Endocrine: Diabetes mellitus - chronic Assessment/Plan: Novolog sliding scale Monitor BGMs while on steroids Cardiology: Paroxysmal Atrial Fib Assessment/Plan: currently in sinus tachycardia 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 Full Code. Visit type - Emergency Visit Emergency Visit: Yes ED Registration Date: 04/23/17 Care time: The patient presented to the Emergency Department on the above date and was hospitalized for further evaluation of their emergent condition. - New Patient This patient is new to me today: No - Critical Care Critical Care patient: No - Discharge Referral Referred to [facility] Med P.C.: No
[2017-04-25] MEDS ORDERED: diphenhydrAMINE HCL 25 MG CAPSULE (FP) PO PRN (08:36)
[2017-04-25] MEDS: CHOLECALCIFEROL (VITAMIN D3) 1,000 UNIT TABLET (FP) PO SCH (09:03)
[2017-04-25] MEDS: ALPRAZolam 0.25 MG TABLET PO SCH ×2 (09:03→22:14)
[2017-04-25] MEDS: LACTOBACILLUS ACIDOPHILUS 1 EACH TAB (FP) PO SCH ×2 (09:04→22:14)
[2017-04-25] MEDS: RANITIDINE HCL 150 MG TABLET (FP) PO SCH (09:04)
[2017-04-25] MEDS: LIPASE/PROTEASE/AMYLASE 6,000 UNIT CAPSULE PO SCH ×3 (09:04→17:31)
[2017-04-25] MEDS: guaiFENesin 600 MG TABLET.ER (FP) PO SCH ×2 (09:04→22:14)
[2017-04-25] MEDS: ROFLUMILAST 500 MCG TABLET PO SCH (09:04)
[2017-04-25] MEDS: NYSTATIN POWDER 100,000 UNITS/GM - 15 GM TOPICAL POWDER TP SCH (09:05)
[2017-04-25] MEDS: BUDESONIDE/FORMETEROL FUMARATE 160/4.5 mcg INHALER IH SCH ×2 (09:05→22:15)
[2017-04-25] MEDS: ZINC OXIDE 20% TOPICAL OINTMENT 30 GM TUBE TP SCH ×2 (09:06→22:13)
[2017-04-25] MEDS: NYSTATIN 100000 UNIT/GM TOPICAL OINTMENT 15 GM TUBE TP SCH ×2 (09:06→22:13)
[2017-04-25] MEDS: POLYETHYLENE GLYCOL 3350 119 GM BTL PO SCH (09:06)
[2017-04-25 11:18] LABS: MCHC 33.7 g/dl (32.0-36.0); MEAN CELL VOLUME 83.3 fl (80-96); MEAN PLT VOLUME 6.9 fl (7.5-11.1); PLATELET COUNT 249 K/MM3 (134-434); RDW 18.2 % (11.6-15.6); WHITE BLOOD COUNT 10.8 K/mm3 (4.0-10.0)
[2017-04-25 11:43] LABS: ALBUMIN 2.8 g/dl (3.4-5.0); ANION GAP 9 (8-16); BILIRUBIN,TOTAL 0.3 mg/dL (0.2-1.0); CALCIUM 8.6 mg/dL (8.5-10.1); CO2 29 mmol/L (21-32); CREATININE 0.6 mg/dL (0.55-1.02); GLUCOSE,RANDOM 196 mg/dL (74-106); SGOT/AST 14 U/L (15-37); SGPT/ALT 31 U/L (12-78)
--- NOTE | 2017-04-25 11:43 | PN ---
Progress Note (short form) - Note Progress Note: PULMONARY SUBJECTIVE IMPROVEMENT VSS ANICTERIC/CUSHINOID SCATTERED EXP WHEEZE S1S2 BS+ DIMINISHED EDEMA LABS/MEDS/NOTES/IMAGING REVIEWED ACUTE ON CHRONIC HYPOXEMIC RESPIRATORY FAILURE COPD O2 DPENDENT WITH ACUTE EXACERBATION LIKELY ACUTE BRONCHITIS PAF HTN HLD PLAN IV MEDROL SAME DOSE INHALED BRONCHODILATORS BIPAP NEEDED ABG PRN ANTIBIOTICS PER ID DVT PROPHYLAXIX GI PROPHYLAXSIS Sreedhar SEXTON MD
[2017-04-25 11:44] LABS: ALK PHOS 132 U/L (45-117)
--- NOTE | 2017-04-25 12:25 | PN ---
Progress Note, Physician Chief Complaint: Dyspnea persists History of Present Illness: Patient was seen and examined. Awake and alert. Chart was reviewed Persistent dyspnea - Current Medication List Current Medications: Active Medications Acetaminophen (Tylenol -) 650 mg PO Q6H PRN PRN Reason: FEVER OR PAIN Last Admin: 04/24/17 08:03 Dose: 650 mg Albuterol/Ipratropium (Duoneb -) 1 amp NEB Q4HPO [facility] Last Admin: 04/25/17 10:00 Dose: 1 amp Alprazolam (Xanax -) 0.25 mg PO BID [facility] Last Admin: 04/25/17 09:03 Dose: 0.25 mg Baclofen (Lioresal -) 10 mg PO TID [facility] Last Admin: 04/25/17 06:12 Dose: 10 mg Budesonide/Formoterol Fumarate (Symbicort 160/4.5mcg -) 2 puff IH BID [facility] Last Admin: 04/25/17 09:05 Dose: 2 puff Cefepime HCl (Maxipime 1gm Ivpb Pre-Docked) 1 gm IVPB Q8H-IV [facility] PRN Reason: Protocol Last Admin: 04/25/17 09:01 Dose: 1 gm Cholecalciferol (Vitamin D3 -) 2,000 unit PO DAILY [facility] Last Admin: 04/25/17 09:03 Dose: 2,000 unit Cyproheptadine HCl (Periactin -) 4 mg PO TID [facility] Last Admin: 04/25/17 06:14 Dose: 4 mg Diltiazem HCl (Cardizem Cd -) 360 mg PO DAILY [facility] Last Admin: 04/25/17 09:03 Dose: 360 mg Diphenhydramine HCl (Benadryl -) 25 mg PO HS PRN PRN Reason: INSOMNIA Doxepin HCl (Sinequan -) 10 mg PO HS [facility] Last Admin: 04/24/17 23:44 Dose: 10 mg Eletriptan (Relpax -) 40 mg PO Q6HPO PRN PRN Reason: HEADACHE Last Admin: 04/25/17 07:58 Dose: 40 mg Guaifenesin (Mucinex -) 600 mg PO BID [facility] Last Admin: 04/25/17 09:04 Dose: 600 mg Heparin Sodium (Porcine) (Heparin -) 5,000 unit SQ TID [facility] Last Admin: 04/25/17 06:12 Dose: 5,000 unit Insulin Aspart (Novolog Vial Sliding Scale -) 1 vial SQ ACHS [facility] PRN Reason: Protocol Last Admin: 04/25/17 12:06 Dose: 4 units Insulin Detemir (Levemir Vial) 5 units SQ BID@0700,2200 [facility] Last Admin: 04/25/17 06:27 Dose: 5 units Lactobacillus Acidophilus (Bacid -) 1 tab PO BID [facility] Last Admin: 04/25/17 09:04 Dose: 1 tab Levothyroxine Sodium (Synthroid -) 25 mcg PO DAILY@0700 [facility] Last Admin: 04/25/17 06:12 Dose: 25 mcg Methylprednisolone Sodium Succinate (Solu-Medrol -) 60 mg IVPB Q6H-IV [facility] Last Admin: 04/25/17 09:03 Dose: 60 mg Morphine Sulfate (Morphine Injection -) 2 mg IVPUSH Q4H PRN PRN Reason: PAIN Last Admin: 04/25/17 08:59 Dose: 2 mg Multi-Ingredient Ointment (Zinc Oxide) 1 applic TP BID [facility] Last Admin: 04/25/17 09:06 Dose: 1 applic Nystatin (Nystop Powder -) 1 applic TP DAILY [facility] Last Admin: 04/25/17 09:05 Dose: 1 applic Nystatin (Mycostatin Ointment -) 1 applic TP BID [facility] Last Admin: 04/25/17 09:06 Dose: 1 applic Ondansetron HCl (Zofran -) 4 mg PO Q4H PRN PRN Reason: NAUSEA Last Admin: 04/23/17 22:45 Dose: 4 mg Pancrelipase (Creon Dr 6,000 Units Capsule) 3 cap PO TIDCM [facility] Last Admin: 04/25/17 12:04 Dose: Not Given Polyethylene Glycol (Miralax (For Daily Use) -) 17 gm PO DAILY [facility] Last Admin: 04/25/17 09:06 Dose: 17 gm Ranitidine HCl (Zantac -) 150 mg PO DAILY [facility] Last Admin: 04/25/17 09:04 Dose: 150 mg Roflumilast (Daliresp -) 500 mcg PO DAILY [facility] Last Admin: 04/25/17 09:04 Dose: 500 mcg Simethicone (Mylicon -) 80 mg PO TID [facility] Last Admin: 04/25/17 06:12 Dose: 80 mg - Objective Vital Signs: Vital Signs Temperature 98 F 04/25/17 10:00 Pulse Rate 108 H 04/25/17 10:00 Respiratory Rate 22 04/25/17 10:00 Blood Pressure 150/80 04/25/17 10:00 O2 Sat by Pulse Oximetry (%) 98 04/25/17 01:39 Neck: Yes: Supple Cardiovascular: Yes: Regular Rate and Rhythm, S1, S2 Respiratory: Yes: Diminished Gastrointestinal: Yes: Normal Bowel Sounds, Soft. No: Tenderness Edema: No Additional Findings/Remarks: - Review of Systems Cardiovascular: Denies: Chest Pain. denies: Palpitations, (+) Shortness of Breath Respiratory: Reports: Cough, denies: Hemoptysis, Orthopnea, PND, (+) SOB, SOB on Exertion Gastrointestinal: denies: Abdominal Pain, Constipation, Diarrhea, Melena, Nausea , Rectal Bleeding, Vomiting Neurological: denies: Dizziness, Headache, Seizure, Syncope Labs: CBC, BMP 04/25/17 10:55 04/25/17 10:55 INR, PTT INR 0.97 (0.82-1.09) 04/23/17 13:00 Problem List - Problems (1) Acute and chronic respiratory failure with hypoxia Code(s): J96.21 - ACUTE AND CHRONIC RESPIRATORY FAILURE WITH HYPOXIA (2) Acute exacerbation of COPD with asthma Code(s): J44.1 - CHRONIC OBSTRUCTIVE PULMONARY DISEASE W (ACUTE) EXACERBATION J45.901 - UNSPECIFIED ASTHMA WITH (ACUTE) EXACERBATION (3) Acute hypercapnic respiratory failure Code(s): J96.02 - ACUTE RESPIRATORY FAILURE WITH HYPERCAPNIA (4) HTN (hypertension) Code(s): I10 - ESSENTIAL (PRIMARY) HYPERTENSION Qualifiers: Hypertension type: essential hypertension Qualified Code(s): I10 - Essential (primary) hypertension (5) Hyperlipidemia Code(s): E78.5 - HYPERLIPIDEMIA, UNSPECIFIED Qualifiers: Hyperlipidemia type: pure hypercholesterolemia Qualified Code(s): E78.00 - Pure hypercholesterolemia, unspecified; E78.0 - Pure hypercholesterolemia (6) Paroxysmal atrial fibrillation Code(s): I48.0 - PAROXYSMAL ATRIAL FIBRILLATION (7) Diabetes mellitus Code(s): E11.9 - TYPE 2 DIABETES MELLITUS WITHOUT COMPLICATIONS Qualifiers: Diabetes mellitus type: type 2 Assessment/Plan 1. Acute on chronic hypoxemic respiratory failure referable to acute exacerbation of O2-dependent COPD 2. Sinus tachycardia referable to #1 3. PAF in sinus rhythm not on anticoagulation due to h/o GI bleed 4. HTN 5. Hyperlipidemia 6. Hypothyroidism 7. Insulin-dependent Type 2 DM PLAN 1. IV steroids, bronchodilator, empiric antibiotics, O2, Daliresp and BIPAP as needed 2. Continue Cardizem CD 360 mg qd 3. DVT and GI prophylaxis 4. 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 Rose and PCP:Dr. Jaquez upon discharge Further plans are to follow Sae Celeste MD
[2017-04-25 12:33] LABS: METAMYELOCYTE 3 % (0-2)
--- NOTE | 2017-04-25 13:31 | PN ---
Progress Note, Physician History of Present Illness: Dyspneic at rest on nasal cannula Appears more comfortable C/O back pain Afebrile on steroids - Current Medication List Current Medications: Active Medications Acetaminophen (Tylenol -) 650 mg PO Q6H PRN PRN Reason: FEVER OR PAIN Last Admin: 04/24/17 08:03 Dose: 650 mg Albuterol/Ipratropium (Duoneb -) 1 amp NEB Q4HPO [facility] Last Admin: 04/25/17 10:00 Dose: 1 amp Alprazolam (Xanax -) 0.25 mg PO BID [facility] Last Admin: 04/25/17 09:03 Dose: 0.25 mg Baclofen (Lioresal -) 10 mg PO TID [facility] Last Admin: 04/25/17 06:12 Dose: 10 mg Budesonide/Formoterol Fumarate (Symbicort 160/4.5mcg -) 2 puff IH BID [facility] Last Admin: 04/25/17 09:05 Dose: 2 puff Cefepime HCl (Maxipime 1gm Ivpb Pre-Docked) 1 gm IVPB Q8H-IV [facility] PRN Reason: Protocol Last Admin: 04/25/17 09:01 Dose: 1 gm Cholecalciferol (Vitamin D3 -) 2,000 unit PO DAILY [facility] Last Admin: 04/25/17 09:03 Dose: 2,000 unit Cyproheptadine HCl (Periactin -) 4 mg PO TID [facility] Last Admin: 04/25/17 06:14 Dose: 4 mg Diltiazem HCl (Cardizem Cd -) 360 mg PO DAILY [facility] Last Admin: 04/25/17 09:03 Dose: 360 mg Diphenhydramine HCl (Benadryl -) 25 mg PO HS PRN PRN Reason: INSOMNIA Doxepin HCl (Sinequan -) 10 mg PO HS [facility] Last Admin: 04/24/17 23:44 Dose: 10 mg Eletriptan (Relpax -) 40 mg PO Q6HPO PRN PRN Reason: HEADACHE Last Admin: 04/25/17 07:58 Dose: 40 mg Guaifenesin (Mucinex -) 600 mg PO BID [facility] Last Admin: 04/25/17 09:04 Dose: 600 mg Heparin Sodium (Porcine) (Heparin -) 5,000 unit SQ TID [facility] Last Admin: 04/25/17 06:12 Dose: 5,000 unit Insulin Aspart (Novolog Vial Sliding Scale -) 1 vial SQ ACHS [facility] PRN Reason: Protocol Last Admin: 04/25/17 12:06 Dose: 4 units Insulin Detemir (Levemir Vial) 5 units SQ BID@0700,2200 [facility] Last Admin: 04/25/17 06:27 Dose: 5 units Lactobacillus Acidophilus (Bacid -) 1 tab PO BID [facility] Last Admin: 04/25/17 09:04 Dose: 1 tab Levothyroxine Sodium (Synthroid -) 25 mcg PO DAILY@0700 [facility] Last Admin: 04/25/17 06:12 Dose: 25 mcg Methylprednisolone Sodium Succinate (Solu-Medrol -) 60 mg IVPB Q6H-IV [facility] Last Admin: 04/25/17 09:03 Dose: 60 mg Morphine Sulfate (Morphine Injection -) 2 mg IVPUSH Q4H PRN PRN Reason: PAIN Last Admin: 04/25/17 12:42 Dose: 2 mg Multi-Ingredient Ointment (Zinc Oxide) 1 applic TP BID [facility] Last Admin: 04/25/17 09:06 Dose: 1 applic Nystatin (Nystop Powder -) 1 applic TP DAILY [facility] Last Admin: 04/25/17 09:05 Dose: 1 applic Nystatin (Mycostatin Ointment -) 1 applic TP BID [facility] Last Admin: 04/25/17 09:06 Dose: 1 applic Ondansetron HCl (Zofran -) 4 mg PO Q4H PRN PRN Reason: NAUSEA Last Admin: 04/23/17 22:45 Dose: 4 mg Pancrelipase (Creon Dr 6,000 Units Capsule) 3 cap PO TIDCM [facility] Last Admin: 04/25/17 12:04 Dose: Not Given Polyethylene Glycol (Miralax (For Daily Use) -) 17 gm PO DAILY [facility] Last Admin: 04/25/17 09:06 Dose: 17 gm Ranitidine HCl (Zantac -) 150 mg PO DAILY [facility] Last Admin: 04/25/17 09:04 Dose: 150 mg Roflumilast (Daliresp -) 500 mcg PO DAILY [facility] Last Admin: 04/25/17 09:04 Dose: 500 mcg Simethicone (Mylicon -) 80 mg PO TID [facility] Last Admin: 04/25/17 06:12 Dose: 80 mg - Objective Vital Signs: Vital Signs Temperature 98 F 04/25/17 10:00 Pulse Rate 108 H 04/25/17 10:00 Respiratory Rate 22 04/25/17 10:00 Blood Pressure 150/80 04/25/17 10:00 O2 Sat by Pulse Oximetry (%) 98 04/25/17 01:39 Constitutional: Yes: No Distress, Other (cushingoid) Eyes: Yes: Conjunctiva Clear Cardiovascular: Yes: Regular Rate and Rhythm, S1, S2 Respiratory: Yes: Diminished Gastrointestinal: Yes: Normal Bowel Sounds, Soft. No: Tenderness Edema: No Labs: CBC, BMP 04/25/17 10:55 04/25/17 10:55 INR, PTT INR 0.97 (0.82-1.09) 04/23/17 13:00 Assessment/Plan Acute exacerbation COPD Bronchitis, possible pneumonia Lactic acidosis- resolved Continue cefepime, steroids, bronchodilators
[2017-04-25] MEDS: ACETAMINOPHEN 325 MG TABLET (FP) PO PRN (19:30)
[2017-04-25] MEDS: DOXEPIN HCL 10 MG CAPSULE PO SCH (22:15)
[2017-04-26] MEDS: morphine CARPU-JECT 2 MG/1 ML DISP.SYRIN IVPUSH PRN ×6 (00:24→20:21)
[2017-04-26] MEDS: CEFEPIME 1 GM/100 ML BAG PRE-DOCKED IVPB SCH ×3 (01:20→17:30)
[2017-04-26] MEDS: ALBUTEROL SO4 2.5/IPRATROPIUM 0.5 INH SOL 3 ML VIAL.NEB. NEB SCH ×6 (02:30→22:43)
[2017-04-26] MEDS: methylPREDNISolone NA SUCC 40 MG/1 ML VIAL IVPB SCH ×4 (03:14→22:25)
[2017-04-26] MEDS ORDERED: PT OWN MED DRAWER 7, Y5N ONE ×2 (05:32→08:44)
[2017-04-26] MEDS: SIMETHICONE 80 MG TAB.CHEW (FP) PO SCH ×3 (06:07→22:26)
[2017-04-26] MEDS: INSULIN DETEMIR 100 UNITS/ML MDV SQ SCH (06:07)
[2017-04-26] MEDS: BACLOFEN 10 MG TABLET (FP) PO SCH ×3 (06:07→22:26)
[2017-04-26] MEDS: LEVOTHYROXINE NA 25 MCG TABLET (FP) PO SCH (06:07)
[2017-04-26] MEDS: CYPROHEPTADINE HCL 4 MG TABLET PO SCH ×3 (06:07→22:27)
[2017-04-26] MEDS: HEPARIN NA (PORCINE) 5,000 UNITS/ML 1ML VIAL SQ SCH ×2 (06:07→13:13)
[2017-04-26] MEDS: INSULIN SLIDING SCALE (NOVOLOG) 1 VIAL SQ SCH ×4 (06:08→16:32)
[2017-04-26] MEDS: ALPRAZolam 0.25 MG TABLET PO SCH ×2 (09:09→22:26)
[2017-04-26] MEDS: CHOLECALCIFEROL (VITAMIN D3) 1,000 UNIT TABLET (FP) PO SCH (09:09)
[2017-04-26] MEDS: guaiFENesin 600 MG TABLET.ER (FP) PO SCH ×2 (09:09→22:26)
[2017-04-26] MEDS: RANITIDINE HCL 150 MG TABLET (FP) PO SCH (09:09)
[2017-04-26] MEDS: BUDESONIDE/FORMETEROL FUMARATE 160/4.5 mcg INHALER IH SCH (09:10)
[2017-04-26] MEDS: POLYETHYLENE GLYCOL 3350 119 GM BTL PO SCH (09:10)
[2017-04-26] MEDS: NYSTATIN 100000 UNIT/GM TOPICAL OINTMENT 15 GM TUBE TP SCH (09:10)
[2017-04-26] MEDS: NYSTATIN POWDER 100,000 UNITS/GM - 15 GM TOPICAL POWDER TP SCH (09:10)
[2017-04-26] MEDS: LIPASE/PROTEASE/AMYLASE 6,000 UNIT CAPSULE PO SCH ×4 (09:11→17:29)
[2017-04-26] MEDS: ZINC OXIDE 20% TOPICAL OINTMENT 30 GM TUBE TP SCH (09:11)
[2017-04-26] MEDS: LACTOBACILLUS ACIDOPHILUS 1 EACH TAB (FP) PO SCH ×2 (09:12→22:25)
[2017-04-26] MEDS: ROFLUMILAST 500 MCG TABLET PO SCH (09:13)
--- NOTE | 2017-04-26 10:05 | PN ---
Progress Note, Physician Chief Complaint: Dyspnea persists with use of accessory muscle Appears anxious and now place on CPAP History of Present Illness: Patient was seen and examined. Awake and alert. Chart was reviewed Persistent dyspnea AF rapid ventricular response - Current Medication List Current Medications: Active Medications Acetaminophen (Tylenol -) 650 mg PO Q6H PRN PRN Reason: FEVER OR PAIN Last Admin: 04/25/17 19:30 Dose: 650 mg Albuterol/Ipratropium (Duoneb -) 1 amp NEB Q4HPO [facility] Last Admin: 04/26/17 08:00 Dose: 1 amp Alprazolam (Xanax -) 0.25 mg PO BID [facility] Last Admin: 04/26/17 09:09 Dose: 0.25 mg Baclofen (Lioresal -) 10 mg PO TID [facility] Last Admin: 04/26/17 06:07 Dose: 10 mg Budesonide/Formoterol Fumarate (Symbicort 160/4.5mcg -) 2 puff IH BID [facility] Last Admin: 04/26/17 09:10 Dose: 2 puff Cefepime HCl (Maxipime 1gm Ivpb Pre-Docked) 1 gm IVPB Q8H-IV [facility] PRN Reason: Protocol Last Admin: 04/26/17 09:10 Dose: 1 gm Cholecalciferol (Vitamin D3 -) 2,000 unit PO DAILY [facility] Last Admin: 04/26/17 09:09 Dose: 2,000 unit Cyproheptadine HCl (Periactin -) 4 mg PO TID [facility] Last Admin: 04/26/17 06:07 Dose: 4 mg Diltiazem HCl (Cardizem Cd -) 360 mg PO DAILY [facility] Last Admin: 04/26/17 09:12 Dose: 360 mg Diphenhydramine HCl (Benadryl -) 25 mg PO HS PRN PRN Reason: INSOMNIA Doxepin HCl (Sinequan -) 10 mg PO HS [facility] Last Admin: 04/25/17 22:15 Dose: 10 mg Eletriptan (Relpax -) 40 mg PO Q6HPO PRN PRN Reason: HEADACHE Last Admin: 04/25/17 22:24 Dose: 40 mg Guaifenesin (Mucinex -) 600 mg PO BID [facility] Last Admin: 04/26/17 09:09 Dose: 600 mg Heparin Sodium (Porcine) (Heparin -) 5,000 unit SQ TID [facility] Last Admin: 04/26/17 06:07 Dose: 5,000 unit Insulin Aspart (Novolog Vial Sliding Scale -) 1 vial SQ ACHS [facility] PRN Reason: Protocol Last Admin: 04/26/17 06:08 Dose: 6 units Insulin Detemir (Levemir Vial) 5 units SQ BID@0700,2200 [facility] Last Admin: 04/26/17 06:07 Dose: 5 units Lactobacillus Acidophilus (Bacid -) 1 tab PO BID [facility] Last Admin: 04/26/17 09:12 Dose: 1 tab Levothyroxine Sodium (Synthroid -) 25 mcg PO DAILY@0700 [facility] Last Admin: 04/26/17 06:07 Dose: 25 mcg Methylprednisolone Sodium Succinate (Solu-Medrol -) 60 mg IVPB Q6H-IV [facility] Last Admin: 04/26/17 09:09 Dose: 60 mg Morphine Sulfate (Morphine Injection -) 2 mg IVPUSH Q4H PRN PRN Reason: PAIN Last Admin: 04/26/17 05:30 Dose: 2 mg Multi-Ingredient Ointment (Zinc Oxide) 1 applic TP BID [facility] Last Admin: 04/26/17 09:11 Dose: 1 applic Nystatin (Nystop Powder -) 1 applic TP DAILY [facility] Last Admin: 04/26/17 09:10 Dose: 1 applic Nystatin (Mycostatin Ointment -) 1 applic TP BID [facility] Last Admin: 04/26/17 09:10 Dose: 1 applic Ondansetron HCl (Zofran -) 4 mg PO Q4H PRN PRN Reason: NAUSEA Last Admin: 04/23/17 22:45 Dose: 4 mg Pancrelipase (Creon Dr 6,000 Units Capsule) 3 cap PO TIDCM [facility] Last Admin: 04/26/17 09:58 Dose: Not Given Polyethylene Glycol (Miralax (For Daily Use) -) 17 gm PO DAILY [facility] Last Admin: 04/26/17 09:10 Dose: 17 gm Ranitidine HCl (Zantac -) 150 mg PO DAILY [facility] Last Admin: 04/26/17 09:09 Dose: 150 mg Roflumilast (Daliresp -) 500 mcg PO DAILY [facility] Last Admin: 04/26/17 09:13 Dose: 500 mcg Simethicone (Mylicon -) 80 mg PO TID [facility] Last Admin: 04/26/17 06:07 Dose: 80 mg - Objective Vital Signs: Vital Signs Temperature 98 F 04/26/17 05:51 Pulse Rate 104 H 04/26/17 05:51 Respiratory Rate 22 04/26/17 05:51 Blood Pressure 142/90 04/26/17 05:51 O2 Sat by Pulse Oximetry (%) 95 04/26/17 06:40 Cardiovascular: Yes: Regular Rate and Rhythm, Tachycardia, Pulse Irregular, S1, S2 Respiratory: Yes: Diminished, On BiPap, Rhonchi, SOB, Tachypnea Gastrointestinal: Yes: Normal Bowel Sounds, Soft. No: Tenderness Edema: No Labs: CBC, BMP 04/25/17 10:55 04/25/17 10:55 Problem List - Problems (1) Acute and chronic respiratory failure with hypoxia Code(s): J96.21 - ACUTE AND CHRONIC RESPIRATORY FAILURE WITH HYPOXIA (2) Acute exacerbation of COPD with asthma Code(s): J44.1 - CHRONIC OBSTRUCTIVE PULMONARY DISEASE W (ACUTE) EXACERBATION J45.901 - UNSPECIFIED ASTHMA WITH (ACUTE) EXACERBATION (3) Acute hypercapnic respiratory failure Code(s): J96.02 - ACUTE RESPIRATORY FAILURE WITH HYPERCAPNIA (4) HTN (hypertension) Code(s): I10 - ESSENTIAL (PRIMARY) HYPERTENSION Qualifiers: Hypertension type: essential hypertension Qualified Code(s): I10 - Essential (primary) hypertension (5) Hyperlipidemia Code(s): E78.5 - HYPERLIPIDEMIA, UNSPECIFIED Qualifiers: Hyperlipidemia type: pure hypercholesterolemia Qualified Code(s): E78.00 - Pure hypercholesterolemia, unspecified; E78.0 - Pure hypercholesterolemia (6) Paroxysmal atrial fibrillation Code(s): I48.0 - PAROXYSMAL ATRIAL FIBRILLATION (7) Diabetes mellitus Code(s): E11.9 - TYPE 2 DIABETES MELLITUS WITHOUT COMPLICATIONS Qualifiers: Diabetes mellitus type: type 2 Assessment/Plan 1. Acute on chronic hypoxemic respiratory failure referable to acute exacerbation of O2-dependent COPD currently back on CPAP with underlying anxiety 2. Atrial fibrillation with RVR 3. PAF not on anticoagulation due to h/o GI bleed 4. HTN 5. Hyperlipidemia 6. Hypothyroidism 7. Insulin-dependent Type 2 DM PLAN 1. IV steroids, bronchodilator, empiric antibiotics, O2, Daliresp and BIPAP 2. Patient was given Cardizem CD 360 mg this am. Cardizem IV push or drip to be considered. If not effective my use IV beta elzbieta as tolerated 3. DVT and GI prophylaxis 4. Transthoracic echocardiography in am 5. 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 Rose and PCP:Dr. Jaquez upon discharge Further plans are to follow Sae Celeste MD
--- NOTE | 2017-04-26 10:19 | PN ---
Physical Exam: SUBJECTIVE: Patient seen and examined. She denies chest pain, discomfort. Has multiple complaints and asking for more pain medications. OBJECTIVE: information delivery analyst shows atrial fib between 140s-190s Cannot rule out PE, CTA ordered however, patient not stable for CTA study @ this time Cardizem 10mg iv push x 1 given @11a today with minimal improvement Started on a cardizem drip, with minimal improvement even with up titration of same Lopressor 5mg x 1 given with good effect, heart rate now in 120s Spoke to wood tank builder (Dr Celeste) on phone, made him aware of current status Will start on Lopressor 12.5mg BID and monitor BP EKG shows atrial fibrillation with rapid ventricular response > needs anticoagulation Has history of GI bleed but according to patient and mother, GI bleeding episode occurred over 5 years ago Patient has poor venous access at this time and multiple attempts have been unsuccessful Lovenox antidote not readily available in house Best is to start patient on Pradaxa 150mg BID, antidote available in-house ( Praxbind). Heart rate now 115-120s. Vital Signs Period Temp Pulse Resp BP Sys/Dan Pulse Ox Last 24 Hr 98 F-98.4 F 103-112 22-22 142-153/78-98 95-95 GENERAL: states she feels better, awake, alert, asking for pain medication. Can speak in full sentences. HEAD: Normal with no signs of trauma. EYES: Pupils equal, round and reactive to light, extraocular movements intact, sclera anicteric, conjunctiva clear. No lid lag. EARS, NOSE, THROAT: Ears normal, nares patent, Endotracheal tube in place, Dry mucousa NECK: Normal range of motion, supple without lymphadenopathy, JVD, or masses. LUNGS: less congestion, scattered rhonchi, mild wheezing - improving HEART: Sinus tachycardia on lead teacher ABDOMEN: Soft, obese, nontender, not distended, normoactive bowel sounds, no guarding, no rebound, no masses. No hepatomegaly or splenomegaly. MUSCULOSKELETAL: Normal range of motion at all joints. No bony deformities or tenderness. No CVA tenderness. UPPER EXTREMITIES: 2+ pulses, warm, well-perfused. No cyanosis. No clubbing. No peripheral edema. LOWER EXTREMITIES: 2+ pulses, warm, well-perfused. No calf tenderness. No peripheral edema. NEUROLOGICAL: Gait not observed, bed bound PSYCHIATRIC: Periods of agitation, anxiety SKIN: Eccyhmotic bruising to abdomen noted. Warm, dry, normal turgor, no rashes. normal capillary refill. +fungal rash of buttocks - nystatin ordered Laboratory Results - last 24 hr 04/25/17 04/25/17 04/25/17 10:55 10:55 12:04 WBC 10.8 H RBC 3.74 Hgb 10.5 L Hct 31.1 L MCV 83.3 MCHC 33.7 RDW 18.2 H Plt Count 249 MPV 6.9 L Neutrophils % 91.0 H Lymphocytes % 5.0 L D Metamyelocytes 3 H D Myelocytes 1 D Sodium 142 Potassium 3.9 Chloride 104 Carbon Dioxide 29 Anion Gap 9 BUN 19 H D Creatinine 0.6 Creat Clearance w eGFR > 60 POC Glucometer 180 Random Glucose 196 H Calcium 8.6 Total Bilirubin 0.3 D AST 14 L D ALT 31 D Alkaline Phosphatase 132 H Total Protein 6.0 L Albumin 2.8 L 04/25/17 04/25/17 04/26/17 16:19 22:18 05:50 WBC RBC Hgb Hct MCV MCHC RDW Plt Count MPV Neutrophils % Lymphocytes % Metamyelocytes Myelocytes Sodium Potassium Chloride Carbon Dioxide Anion Gap BUN Creatinine Creat Clearance w eGFR POC Glucometer 234 187 237 Random Glucose Calcium Total Bilirubin AST ALT Alkaline Phosphatase Total Protein Albumin Active Medications Generic Name Dose Route Start Last Admin Trade Name Freq PRN Reason Stop Dose Admin Acetaminophen 650 mg 04/23/17 16:30 04/25/17 19:30 Tylenol - PO 650 mg Q6H PRN Administration FEVER OR PAIN Albuterol/Ipratropium 1 amp 04/23/17 18:00 04/26/17 08:00 Duoneb - NEB 1 amp Q4HPO EMMY Administration Alprazolam 0.25 mg 04/23/17 22:00 04/26/17 09:09 Xanax - PO 0.25 mg BID EMMY Administration Baclofen 10 mg 04/24/17 23:45 04/26/17 06:07 Lioresal - PO 10 mg TID EMMY Administration Budesonide/Formoterol Fumarate 2 puff 04/23/17 22:00 04/26/17 09:10 Symbicort 160/4.5mcg - IH 2 puff BID EMMY Administration Cefepime HCl 1 gm 04/24/17 10:30 04/26/17 09:10 Maxipime 1gm Ivpb Pre-Docked IVPB 1 gm Q8H-IV EMMY Administration Protocol Cholecalciferol 2,000 unit 04/24/17 10:00 04/26/17 09:09 Vitamin D3 - PO 2,000 unit DAILY EMMY Administration Cyproheptadine HCl 4 mg 04/23/17 22:00 04/26/17 06:07 Periactin - PO 4 mg TID EMMY Administration Diltiazem HCl 360 mg 04/24/17 10:00 04/26/17 09:12 Cardizem Cd - PO 360 mg DAILY EMMY Administration Diphenhydramine HCl 25 mg 04/25/17 08:36 Benadryl - PO HS PRN INSOMNIA Doxepin HCl 10 mg 04/24/17 22:00 04/25/17 22:15 Sinequan - PO 10 mg HS EMMY Administration Eletriptan 40 mg 04/24/17 09:31 04/25/17 22:24 Relpax - PO 40 mg Q6HPO PRN Administration HEADACHE Guaifenesin 600 mg 04/24/17 10:30 04/26/17 09:09 Mucinex - PO 600 mg BID EMMY Administration Heparin Sodium (Porcine) 5,000 unit 04/23/17 22:00 04/26/17 06:07 Heparin - SQ 5,000 unit TID EMMY Administration Insulin Aspart 1 vial 04/23/17 18:36 04/26/17 06:08 Novolog Vial Sliding Scale - SQ 6 units ACHS EMMY Administration Protocol Insulin Detemir 5 units 04/23/17 22:00 04/26/17 06:07 Levemir Vial SQ 5 units BID@0700,2200 EMMY Administration Lactobacillus Acidophilus 1 tab 04/23/17 22:00 04/26/17 09:12 Bacid - PO 1 tab BID EMMY Administration Levothyroxine Sodium 25 mcg 04/24/17 07:00 04/26/17 06:07 Synthroid - PO 25 mcg DAILY@0700 EMMY Administration Methylprednisolone Sodium Succinate 60 mg 04/24/17 15:00 04/26/17 09:09 Solu-Medrol - IVPB 60 mg Q6H-IV EMMY Administration Morphine Sulfate 2 mg 04/25/17 08:45 04/26/17 05:30 Morphine Injection - IVPUSH 2 mg Q4H PRN Administration PAIN Multi-Ingredient Ointment 1 applic 04/23/17 22:00 04/26/17 09:11 Zinc Oxide TP 1 applic BID EMMY Administration Nystatin 1 applic 04/24/17 10:00 04/26/17 09:10 Nystop Powder - TP 1 applic DAILY EMMY Administration Nystatin 1 applic 04/23/17 21:00 04/26/17 09:10 Mycostatin Ointment - TP 1 applic BID EMMY Administration Ondansetron HCl 4 mg 04/23/17 16:30 04/23/17 22:45 Zofran - PO 4 mg Q4H PRN Administration NAUSEA Pancrelipase 3 cap 04/23/17 17:30 04/26/17 09:58 Eamon Turner 6,000 Units Capsule PO Not Given TIDCM EMMY Polyethylene Glycol 17 gm 04/24/17 10:00 04/26/17 09:10 Miralax (For Daily Use) - PO 17 gm DAILY EMMY Administration Ranitidine HCl 150 mg 04/24/17 10:00 04/26/17 09:09 Zantac - PO 150 mg DAILY EMMY Administration Roflumilast 500 mcg 04/24/17 10:00 04/26/17 09:13 Daliresp - PO 500 mcg DAILY EMMY Administration Simethicone 80 mg 04/23/17 22:00 04/26/17 06:07 Mylicon - PO 80 mg TID EMMY Administration ASSESSMENT/PLAN: Patient is a 51 year old female with a significant past medical history of COPD (home oxygen dependent), asthma, inbutation, tracheostomy, morbid obesity, hypertension, hypercholesterolemia, paroxysmal atrial fibrillation (no on any anticoagulation secondary to hx of GI bleed), anxiety, depression, bipolar disorder and uterine cancer. She was sent by her PCP Dr. Estrada after she presented to his office in mild respiratory distress with diffuse wheezes and tachycardia. Patient reports that she has a chronic productive cough with yellow pheghm. She denies any chest pain, palpitations, nausea or vomiting. She denies abdominal pain. Imaging: Chest Xray 04/23/2017: Old left rib fracture, no evidence of pneumothorax or pleural effusion, no acute lung disease Pulmonary: Respiratory Failure secondary to acute COPD exacerbation Assessment/Plan: Tolerating 2-3 liters of nasal cannula with saturations above 90% Alternated with bipap therapy, Less congestion of bilateral lung garcia Goal is to keep oxygen saturations >90% on 2-3 liters of nasal cannula Sputum culture pending, Continue support with duonebs, symbicort and Solumedrol 60mg q6 ABGs reviewed Pulmonary following Continue to monitor respiratory status Pneumonia/Leukocytosis/Lactic acidosis - improving Assessment/Plan: On admission given dose of Ceftazidime and Zosyn started on Cefepime 1gram by ID as pt has hx of pseudomonas Blood cultures with no growth to date, urine cultures pending WBC trending down Lactic acidosis now resolved Cardiology: Paroxysmal Atrial Fib with atrial fibrilation with RVR between 170s - 190s - acute on chronic Assessment/Plan: Given Cardizem 360mg CD, cardizem 10mg x 1 Ivpush and a started on cardizem drip with little response Given Lopressor 5mg x 1 with good effect, will start on Lopressor 12.5mg BID Patient was not previously anticoagulated secondary to GI bleed, which was over 5 yrs ago (as per pt and mother) Ideally would of started her on a heparin drip but she has poor venous access and multiple attempts of 2nd IV unsuccessful Lovenox antidote not readily available in house Started on Pradaxa 150mg BID, confirmed with pharmacist that antidote of Praxbind is available in house Serial troponins ordered Cardiology following Psyche: Bipolar/anxiety/depression Assessment/Plan: continue psyche home meds Endocrine: Diabetes mellitus - chronic Assessment/Plan: Novolog sliding scale Monitor BGMs while on steroids F.E.N Fluid: tolerating PO Electrolytes: Monitor labs Nutrition: soft diet Prophylaxis DVT: SCD, heparin SQ GI: Zantac Disposition: Requires inpatient hospitalization. No beds available in ICU at this time. Full Code. Visit type - Emergency Visit Emergency Visit: Yes ED Registration Date: 04/23/17 Care time: The patient presented to the Emergency Department on the above date and was hospitalized for further evaluation of their emergent condition. - New Patient This patient is new to me today: Yes Date on this admission: 04/26/17 - Critical Care Critical Care patient: Yes Total Critical Care Time (in minutes): 120 Critical Care Statement: The care of this patient involved high complexity decision making to prevent further life threatening deterioration of the patient 's condition and/or to evalute & treat vital organ system(s) failure or risk of failure. - Discharge Referral Referred to [facility] No
[2017-04-26] MEDS ORDERED: dilTIAZem HCL 50 MG/10 ML - 10 ML VIAL IVPUSH ONE ×2 (11:10→13:45)
--- NOTE | 2017-04-26 13:00 | PN ---
Progress Note (short form) - Note Progress Note: PULMONARY TACHY 140'S/ON BIPAP FAMILY PRESENT ANICTERIC/CUSHINOID SCATTERED EXP WHEEZE S1S2 BS+ DIMINISHED EDEMA LABS/MEDS/NOTES/IMAGING REVIEWED RAPID AF VS MAT ACUTE ON CHRONIC HYPOXEMIC RESPIRATORY FAILURE COPD O2 DEPENDENT WITH ACUTE EXACERBATION LIKELY ACUTE BRONCHITIS PAF HTN HLD PLAN CARDIZEM STARTED/CARDIOLOGY AWARE/DRIP TO BE STARTED IV MEDROL SAME DOSE INHALED BRONCHODILATORS BIPAP NEEDED EKG ANTIBIOTICS PER ID ON HEPARIN SQ Q8/MAY NEED IV HEPARIN OR LOVENOX UNTIL PE CAN BE RULED OUT Sreedhar SEXTON MD
[2017-04-26] MEDS: DILTIAZEM INJECTION 125 MG in DEXTROSE 5%-WATER - 100 ML IVPB SCH (13:03)
[2017-04-26 13:34] LABS: MCH 27.6 pg (25.7-33.7); MEAN CELL VOLUME 83.5 fl (80-96); MEAN PLT VOLUME 6.9 fl (7.5-11.1); PLATELET COUNT 248 K/MM3 (134-434); RDW 18.3 % (11.6-15.6); WHITE BLOOD COUNT 13.4 K/mm3 (4.0-10.0)
[2017-04-26] MEDS ORDERED: METOPROLOL TARTRATE 5 MG/5 ML VIAL IVPUSH ONE (13:46)
[2017-04-26 14:03] LABS: ANION GAP 9 (8-16); CALCIUM 8.7 mg/dL (8.5-10.1); CO2 28 mmol/L (21-32); CREATININE 0.6 mg/dL (0.55-1.02); GLUCOSE,RANDOM 210 mg/dL (74-106)
[2017-04-26 14:06] LABS: TROPONIN I < 0.02 ng/ml (0.00-0.05)
[2017-04-26] MEDS ORDERED: METOPROLOL TARTRATE 25 MG TABLET (FP) PO ONE (14:08)
[2017-04-26 14:18] LABS: METAMYELOCYTE 1 % (0-2); PLATELET ESTIMATE ADEQUATE (NORMAL)
[2017-04-26 15:59] LABS: MAGNESIUM 2.1 mg/dL (1.8-2.4)
[2017-04-26] MEDS: DABIGATRAN ETEXILATE MESYLATE 150 MG CAPSULE PO ONE ×2 (16:17→16:23)
--- NOTE | 2017-04-26 16:23 | EKG ---
Test Reason : Blood Pressure : / mmHG Vent. Rate : 119 BPM Atrial Rate : 178 BPM P-R Int : 000 ms QRS Dur : 078 ms QT Int : 266 ms P-R-T Axes : 000 051 037 degrees QTc Int : 374 ms ATRIAL FIBRILLATION WITH RAPID VENTRICULAR RESPONSE NONSPECIFIC ST ABNORMALITY ABNORMAL ECG WHEN COMPARED WITH ECG OF 23-APR-2017 12:23, ATRIAL FIBRILLATION HAS REPLACED SINUS RHYTHM ST NOW DEPRESSED IN ANTERIOR LEADS Confirmed by JANAY WRIGHT, JUD ([id number]) on 04/26/2017 4:23:18 PM Referred By: Nando OH Confirmed By:JUD GUSTAFSON MD
[2017-04-26] MEDS ORDERED: HEPARIN NA (PORCINE) 5,000 UNITS/ML 1ML VIAL IVPUSH PRN ×2 (17:08)
[2017-04-26] MEDS ORDERED: TRIPLE LUMEN FLUSH 4 ML ML IVPUSH PRN (17:20)
[2017-04-26] MEDS: ONDANSETRON 4 MG TABLET PO PRN (20:22)
[2017-04-26] MEDS ORDERED: DABIGATRAN ETEXILATE MESYLATE 150 MG CAPSULE PO SCH (22:00)
[2017-04-26] MEDS: METOPROLOL TARTRATE 25 MG TABLET (FP) PO SCH (22:26)
[2017-04-26] MEDS: DOXEPIN HCL 10 MG CAPSULE PO SCH (22:28)
[2017-04-26] MEDS: ELETRIPTAN HYDROBROMIDE 40 MG TABLET PO PRN (22:29)
[2017-04-27] MEDS: morphine CARPU-JECT 2 MG/1 ML DISP.SYRIN IVPUSH PRN ×3 (00:36→08:07)
[2017-04-27] MEDS: HEPARIN - 25,000 UNIT in SODIUM CHLORIDE 495 ML IV SCH ×3 (00:38→20:32)
[2017-04-27] MEDS: ALBUTEROL SO4 2.5/IPRATROPIUM 0.5 INH SOL 3 ML VIAL.NEB. NEB SCH ×6 (02:25→22:00)
[2017-04-27] MEDS: CEFEPIME 1 GM/100 ML BAG PRE-DOCKED IVPB SCH ×2 (04:07→09:33)
[2017-04-27] MEDS: BUDESONIDE/FORMETEROL FUMARATE 160/4.5 mcg INHALER IH SCH ×3 (04:09→22:33)
[2017-04-27] MEDS: INSULIN DETEMIR 100 UNITS/ML MDV SQ SCH ×3 (04:10→22:33)
[2017-04-27] MEDS: INSULIN SLIDING SCALE (NOVOLOG) 1 VIAL SQ SCH ×5 (04:11→22:28)
[2017-04-27] MEDS: methylPREDNISolone NA SUCC 40 MG/1 ML VIAL IVPB SCH (04:11)
[2017-04-27] MEDS: ZINC OXIDE 20% TOPICAL OINTMENT 30 GM TUBE TP SCH ×3 (04:12→22:33)
[2017-04-27] MEDS: NYSTATIN 100000 UNIT/GM TOPICAL OINTMENT 15 GM TUBE TP SCH ×3 (04:12→22:33)
[2017-04-27] MEDS: LEVOTHYROXINE NA 25 MCG TABLET (FP) PO SCH (06:44)
[2017-04-27] MEDS: CYPROHEPTADINE HCL 4 MG TABLET PO SCH (06:44)
[2017-04-27] MEDS: BACLOFEN 10 MG TABLET (FP) PO SCH (06:44)
[2017-04-27] MEDS: SIMETHICONE 80 MG TAB.CHEW (FP) PO SCH (06:45)
[2017-04-27 07:42] LABS: MCH 27.4 pg (25.7-33.7); MCHC 32.8 g/dl (32.0-36.0); MEAN CELL VOLUME 83.5 fl (80-96); MEAN PLT VOLUME 7.3 fl (7.5-11.1); PLATELET COUNT 219 K/MM3 (134-434); RDW 18.2 % (11.6-15.6); WHITE BLOOD COUNT 12.5 K/mm3 (4.0-10.0)
[2017-04-27 07:58] LABS: INR 1.04 (0.82-1.09); PROTHROMBIN TIME (PATIENT) 11.5 SEC (9.98-11.88)
[2017-04-27] MEDS: ALPRAZolam 0.25 MG TABLET PO SCH ×2 (09:34→22:25)
[2017-04-27] MEDS: METOPROLOL TARTRATE 25 MG TABLET (FP) PO SCH ×2 (09:35→22:24)
[2017-04-27] MEDS: LIPASE/PROTEASE/AMYLASE 6,000 UNIT CAPSULE PO SCH ×3 (09:35→16:50)
--- NOTE | 2017-04-27 09:35 | PN ---
Progress Note, Physician Chief Complaint: ID Patient reporting loose BMs likely related to antibiotic She is getting Cefepime with no fever or evidence of pneumonia Cultures blood and urine no growth - Current Medication List Current Medications: Active Medications Acetaminophen (Tylenol -) 650 mg PO Q6H PRN PRN Reason: FEVER OR PAIN Last Admin: 04/25/17 19:30 Dose: 650 mg Albuterol/Ipratropium (Duoneb -) 1 amp NEB Q4HPO EMMY Last Admin: 04/27/17 06:39 Dose: 1 amp Alprazolam (Xanax -) 0.25 mg PO BID [facility] Last Admin: 04/26/17 22:26 Dose: 0.25 mg Budesonide/Formoterol Fumarate (Symbicort 160/4.5mcg -) 2 puff IH BID [facility] Last Admin: 04/27/17 04:09 Dose: 2 puff Cefepime HCl (Maxipime 1gm Ivpb Pre-Docked) 1 gm IVPB Q8H-IV EMMY PRN Reason: Protocol Last Admin: 04/27/17 04:07 Dose: 1 gm Diltiazem HCl (Cardizem Cd -) 360 mg PO DAILY EMMY Eletriptan (Relpax -) 40 mg PO Q6HPO PRN PRN Reason: HEADACHE Last Admin: 04/26/17 22:29 Dose: 40 mg Heparin Sodium (Porcine) (Heparin -) 1,000 unit IVPUSH PRN PRN PRN Reason: Heparin Heparin Sodium (Porcine) (Heparin -) 5,000 unit IVPUSH PRN PRN PRN Reason: Heparin IV Flush (Triple Lumen Flush) 4 ml IVPUSH PRN PRN PRN Reason: Protocol Diltiazem HCl 125 mg/ Dextrose 125 mls @ 5 mls/hr IVPB TITR EMMY; 5 MG/HR PRN Reason: Protocol Last Admin: 04/26/17 13:03 Dose: 5 mls/hr Heparin Sodium (Porcine) 25, (000 unit/ Sodium Chloride) 500 mls @ 16 mls/hr IV TITR EMMY; 800 UNIT/HR PRN Reason: Protocol Last Admin: 04/27/17 00:38 Dose: 16 mls/hr Insulin Aspart (Novolog Vial Sliding Scale -) 1 vial SQ ACHS EMMY PRN Reason: Protocol Last Admin: 04/27/17 06:45 Dose: 4 units Insulin Detemir (Levemir Vial) 5 units SQ BID@0700,2200 [facility] Last Admin: 04/27/17 06:45 Dose: 5 units Levothyroxine Sodium (Synthroid -) 25 mcg PO DAILY@0700 [facility] Last Admin: 04/27/17 06:44 Dose: 25 mcg Methylprednisolone Sodium Succinate (Solu-Medrol -) 60 mg IVPB Q8H-IV [facility] Metoprolol Tartrate (Lopressor -) 12.5 mg PO BID [facility] Last Admin: 04/26/17 22:26 Dose: 12.5 mg Multi-Ingredient Ointment (Zinc Oxide) 1 applic TP BID [facility] Last Admin: 04/27/17 04:12 Dose: 1 applic Nystatin (Nystop Powder -) 1 applic TP DAILY [facility] Last Admin: 04/26/17 09:10 Dose: 1 applic Nystatin (Mycostatin Ointment -) 1 applic TP BID [facility] Last Admin: 04/27/17 04:12 Dose: 1 applic Ondansetron HCl (Zofran -) 4 mg PO Q4H PRN PRN Reason: NAUSEA Last Admin: 04/26/17 20:22 Dose: 4 mg Oxycodone HCl (Oxycontin -) 10 mg PO BID [facility] Pancrelipase (Creon Dr 6,000 Units Capsule) 3 cap PO TIDCM [facility] Last Admin: 04/26/17 17:29 Dose: Not Given Polyethylene Glycol (Miralax (For Daily Use) -) 17 gm PO DAILY [facility] Last Admin: 04/26/17 09:10 Dose: 17 gm Roflumilast (Daliresp -) 500 mcg PO DAILY [facility] Last Admin: 04/26/17 09:13 Dose: 500 mcg - Objective Vital Signs: Vital Signs Temperature 98 F 04/27/17 04:00 Pulse Rate 85 04/27/17 04:00 Respiratory Rate 20 04/27/17 04:00 Blood Pressure 144/94 04/27/17 04:00 O2 Sat by Pulse Oximetry (%) 96 04/27/17 02:26 Constitutional: Yes: Moderate Distress Neck: Yes: WNL, Supple Cardiovascular: Yes: Regular Rate and Rhythm, S1, S2 Respiratory: Yes: Rhonchi Gastrointestinal: Yes: Soft Edema: No Labs: CBC, BMP 04/27/17 05:35 INR, PTT INR 1.04 (0.82-1.09) 04/27/17 05:35 Assessment/Plan Microbiology 04/23/17 14:50 Urine - Urine Clean Catch Urine Culture - Final NO GROWTH OBTAINED 04/23/17 13:15 Blood - Peripheral Venous Blood Culture - Preliminary NO GROWTH OBTAINED AFTER 72 HOURS, INCUBATION TO CONTINUE FOR 2 DAYS. 04/23/17 12:24 Blood - Peripheral Venous Blood Culture - Preliminary NO GROWTH OBTAINED AFTER 72 HOURS, INCUBATION TO CONTINUE FOR 2 DAYS. Laboratory Tests 04/26/17 04/27/17 13:20 05:35 WBC 12.5 H Hgb 10.2 L Hct 31.1 L Plt Count 219 BUN 24 H D Creatinine 0.6 Assessment Severe COPD with exacerbation Plan Stop antibiotic observe Send stool if diarrhea persistant after antibiotics stopped Martha WRIGHT
[2017-04-27] MEDS: NYSTATIN POWDER 100,000 UNITS/GM - 15 GM TOPICAL POWDER TP SCH (09:36)
[2017-04-27] MEDS: POLYETHYLENE GLYCOL 3350 119 GM BTL PO SCH (09:36)
[2017-04-27] MEDS: methylPREDNISolone NA SUCC 125 MG/2 ML VIAL IVPB SCH ×2 (09:36→17:15)
[2017-04-27] MEDS: ROFLUMILAST 500 MCG TABLET PO SCH (09:36)
[2017-04-27 09:49] LABS: ALBUMIN 2.8 g/dl (3.4-5.0); ANION GAP 14 (8-16); BILIRUBIN,TOTAL 0.3 mg/dL (0.2-1.0); CALCIUM 8.4 mg/dL (8.5-10.1); CO2 25 mmol/L (21-32); COCKROFT - GAULT 123.7685; CREATININE 0.5 mg/dL (0.55-1.02); GLUCOSE,RANDOM 218 mg/dL (74-106); SGOT/AST 34 U/L (15-37); SGPT/ALT 57 U/L (12-78); TOT PROT 5.6 g/dl (6.4-8.2)
[2017-04-27 09:50] LABS: ALK PHOS 112 U/L (45-117)
[2017-04-27] MEDS ORDERED: oxyCODONE HCL 10 MG SUSTAINED ACTING TABLET PO SCH (10:00)
--- NOTE | 2017-04-27 10:38 | PN ---
Progress Note, Physician Chief Complaint: CPAP mask taken off. Less SOB Sinus tachycardia History of Present Illness: Patient was seen and examined. Awake and alert. Chart was reviewed Dyspnea better, but persistent AF now converted to sinus tachycardia - Current Medication List Current Medications: Active Medications Acetaminophen (Tylenol -) 650 mg PO Q6H PRN PRN Reason: FEVER OR PAIN Last Admin: 04/25/17 19:30 Dose: 650 mg Albuterol/Ipratropium (Duoneb -) 1 amp NEB Q4HPO EMMY Last Admin: 04/27/17 10:16 Dose: 1 amp Alprazolam (Xanax -) 0.25 mg PO BID [facility] Last Admin: 04/27/17 09:34 Dose: 0.25 mg Budesonide/Formoterol Fumarate (Symbicort 160/4.5mcg -) 2 puff IH BID [facility] Last Admin: 04/27/17 09:37 Dose: 2 puff Diltiazem HCl (Cardizem Cd -) 360 mg PO DAILY [facility] Last Admin: 04/27/17 09:35 Dose: 360 mg Eletriptan (Relpax -) 40 mg PO Q6HPO PRN PRN Reason: HEADACHE Last Admin: 04/26/17 22:29 Dose: 40 mg Heparin Sodium (Porcine) (Heparin -) 1,000 unit IVPUSH PRN PRN PRN Reason: Heparin Heparin Sodium (Porcine) (Heparin -) 5,000 unit IVPUSH PRN PRN PRN Reason: Heparin IV Flush (Triple Lumen Flush) 4 ml IVPUSH PRN PRN PRN Reason: Protocol Diltiazem HCl 125 mg/ Dextrose 125 mls @ 5 mls/hr IVPB TITR EMMY; 5 MG/HR PRN Reason: Protocol Last Admin: 04/26/17 13:03 Dose: 5 mls/hr Heparin Sodium (Porcine) 25, (000 unit/ Sodium Chloride) 500 mls @ 16 mls/hr IV TITR EMMY; 800 UNIT/HR PRN Reason: Protocol Last Admin: 04/27/17 00:38 Dose: 16 mls/hr Insulin Aspart (Novolog Vial Sliding Scale -) 1 vial SQ ACHS EMMY PRN Reason: Protocol Last Admin: 04/27/17 06:45 Dose: 4 units Insulin Detemir (Levemir Vial) 5 units SQ BID@0700,2200 [facility] Last Admin: 04/27/17 06:45 Dose: 5 units Levothyroxine Sodium (Synthroid -) 25 mcg PO DAILY@0700 [facility] Last Admin: 04/27/17 06:44 Dose: 25 mcg Methylprednisolone Sodium Succinate (Solu-Medrol -) 60 mg IVPB Q8H-IV [facility] Last Admin: 04/27/17 09:36 Dose: 60 mg Metoprolol Tartrate (Lopressor -) 12.5 mg PO BID [facility] Last Admin: 04/27/17 09:35 Dose: 12.5 mg Multi-Ingredient Ointment (Zinc Oxide) 1 applic TP BID [facility] Last Admin: 04/27/17 09:34 Dose: 1 applic Nystatin (Nystop Powder -) 1 applic TP DAILY [facility] Last Admin: 04/27/17 09:36 Dose: 1 applic Nystatin (Mycostatin Ointment -) 1 applic TP BID [facility] Last Admin: 04/27/17 09:34 Dose: 1 applic Ondansetron HCl (Zofran -) 4 mg PO Q4H PRN PRN Reason: NAUSEA Last Admin: 04/26/17 20:22 Dose: 4 mg Oxycodone HCl (Oxycontin -) 10 mg PO BID [facility] Pancrelipase (Creon Dr 6,000 Units Capsule) 3 cap PO TIDCM [facility] Last Admin: 04/27/17 09:35 Dose: Not Given Polyethylene Glycol (Miralax (For Daily Use) -) 17 gm PO DAILY [facility] Last Admin: 04/27/17 09:36 Dose: Not Given Roflumilast (Daliresp -) 500 mcg PO DAILY [facility] Last Admin: 04/27/17 09:36 Dose: 500 mcg - Objective Vital Signs: Vital Signs Temperature 98 F 04/27/17 04:00 Pulse Rate 85 04/27/17 04:00 Respiratory Rate 20 04/27/17 04:00 Blood Pressure 144/94 04/27/17 04:00 O2 Sat by Pulse Oximetry (%) 96 04/27/17 02:26 HENT: Yes: Atraumatic Neck: Yes: Supple Cardiovascular: Yes: Regular Rate and Rhythm, S1, S2 Respiratory: Yes: Diminished Gastrointestinal: Yes: Normal Bowel Sounds, Soft. No: Tenderness Edema: No Additional Findings/Remarks: - Review of Systems Cardiovascular: Denies: Chest Pain. denies: Palpitations, (+) Shortness of Breath Respiratory: Reports: Cough, denies: Hemoptysis, Orthopnea, PND, (+) SOB, SOB on Exertion Gastrointestinal: denies: Abdominal Pain, Constipation, Diarrhea, Melena, Nausea , Rectal Bleeding, Vomiting Neurological: denies: Dizziness, Headache, Seizure, Syncope Labs: CBC, BMP 04/27/17 05:35 04/27/17 05:35 INR, PTT INR 1.04 (0.82-1.09) 04/27/17 05:35 Problem List - Problems (1) Acute and chronic respiratory failure with hypoxia Code(s): J96.21 - ACUTE AND CHRONIC RESPIRATORY FAILURE WITH HYPOXIA (2) Acute exacerbation of COPD with asthma Code(s): J44.1 - CHRONIC OBSTRUCTIVE PULMONARY DISEASE W (ACUTE) EXACERBATION J45.901 - UNSPECIFIED ASTHMA WITH (ACUTE) EXACERBATION (3) Acute hypercapnic respiratory failure Code(s): J96.02 - ACUTE RESPIRATORY FAILURE WITH HYPERCAPNIA (4) HTN (hypertension) Code(s): I10 - ESSENTIAL (PRIMARY) HYPERTENSION Qualifiers: Hypertension type: essential hypertension Qualified Code(s): I10 - Essential (primary) hypertension (5) Hyperlipidemia Code(s): E78.5 - HYPERLIPIDEMIA, UNSPECIFIED Qualifiers: Hyperlipidemia type: pure hypercholesterolemia Qualified Code(s): E78.00 - Pure hypercholesterolemia, unspecified; E78.0 - Pure hypercholesterolemia (6) Paroxysmal atrial fibrillation Code(s): I48.0 - PAROXYSMAL ATRIAL FIBRILLATION (7) Diabetes mellitus Code(s): E11.9 - TYPE 2 DIABETES MELLITUS WITHOUT COMPLICATIONS Qualifiers: Diabetes mellitus type: type 2 Assessment/Plan 1. Acute on chronic hypoxemic respiratory failure referable to acute exacerbation of O2-dependent COPD currently back on CPAP with underlying anxiety 2. Atrial fibrillation with RVR - now in sinus tachycardia 3. PAF not on anticoagulation due to h/o GI bleed 4. HTN 5. Hyperlipidemia 6. Hypothyroidism 7. Insulin-dependent Type 2 DM PLAN 1. IV steroids, bronchodilator, empiric antibiotics, O2, Daliresp and BIPAP 2. Patient was given Cardizem CD 360 mg once a day and Lopressor 12.5 mg once a day for rate control 3. DVT and GI prophylaxis 4. Transthoracic echocardiography 5. 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 Rose and PCP:Dr. Jaquez upon discharge Further plans are to follow Sae Celeste MD
[2017-04-27 10:58] LABS: METAMYELOCYTE 1 % (0-2); PLATELET ESTIMATE ADEQUATE (NORMAL)
--- NOTE | 2017-04-27 11:59 | PN ---
Progress Note, Physician History of Present Illness: pulmonary alert,feeling better,less dyspneic,+dry cough - Current Medication List Current Medications: Active Medications Acetaminophen (Tylenol -) 650 mg PO Q6H PRN PRN Reason: FEVER OR PAIN Last Admin: 04/25/17 19:30 Dose: 650 mg Albuterol/Ipratropium (Duoneb -) 1 amp NEB Q4HPO [facility] Last Admin: 04/27/17 10:16 Dose: 1 amp Alprazolam (Xanax -) 0.25 mg PO BID [facility] Last Admin: 04/27/17 09:34 Dose: 0.25 mg Budesonide/Formoterol Fumarate (Symbicort 160/4.5mcg -) 2 puff IH BID [facility] Last Admin: 04/27/17 09:37 Dose: 2 puff Diltiazem HCl (Cardizem Cd -) 360 mg PO DAILY [facility] Last Admin: 04/27/17 09:35 Dose: 360 mg Eletriptan (Relpax -) 40 mg PO Q6HPO PRN PRN Reason: HEADACHE Last Admin: 04/26/17 22:29 Dose: 40 mg Heparin Sodium (Porcine) (Heparin -) 1,000 unit IVPUSH PRN PRN PRN Reason: Heparin Heparin Sodium (Porcine) (Heparin -) 5,000 unit IVPUSH PRN PRN PRN Reason: Heparin IV Flush (Triple Lumen Flush) 4 ml IVPUSH PRN PRN PRN Reason: Protocol Diltiazem HCl 125 mg/ Dextrose 125 mls @ 5 mls/hr IVPB TITR [facility]; 5 MG/HR PRN Reason: Protocol Last Admin: 04/26/17 13:03 Dose: 5 mls/hr Heparin Sodium (Porcine) 25, (000 unit/ Sodium Chloride) 500 mls @ 16 mls/hr IV TITR [facility]; 800 UNIT/HR PRN Reason: Protocol Last Admin: 04/27/17 00:38 Dose: 16 mls/hr Insulin Aspart (Novolog Vial Sliding Scale -) 1 vial SQ ACHS [facility] PRN Reason: Protocol Last Admin: 04/27/17 06:45 Dose: 4 units Insulin Detemir (Levemir Vial) 5 units SQ BID@0700,2200 [facility] Last Admin: 04/27/17 06:45 Dose: 5 units Levothyroxine Sodium (Synthroid -) 25 mcg PO DAILY@0700 [facility] Last Admin: 04/27/17 06:44 Dose: 25 mcg Methylprednisolone Sodium Succinate (Solu-Medrol -) 60 mg IVPB Q8H-IV [facility] Last Admin: 04/27/17 09:36 Dose: 60 mg Metoprolol Tartrate (Lopressor -) 12.5 mg PO BID [facility] Last Admin: 04/27/17 09:35 Dose: 12.5 mg Multi-Ingredient Ointment (Zinc Oxide) 1 applic TP BID [facility] Last Admin: 04/27/17 09:34 Dose: 1 applic Nystatin (Nystop Powder -) 1 applic TP DAILY [facility] Last Admin: 04/27/17 09:36 Dose: 1 applic Nystatin (Mycostatin Ointment -) 1 applic TP BID [facility] Last Admin: 04/27/17 09:34 Dose: 1 applic Ondansetron HCl (Zofran -) 4 mg PO Q4H PRN PRN Reason: NAUSEA Last Admin: 04/26/17 20:22 Dose: 4 mg Oxycodone HCl (Oxycontin -) 10 mg PO BID [facility] Pancrelipase (Creon Dr 6,000 Units Capsule) 3 cap PO TIDCM [facility] Last Admin: 04/27/17 11:39 Dose: Not Given Polyethylene Glycol (Miralax (For Daily Use) -) 17 gm PO DAILY [facility] Last Admin: 04/27/17 09:36 Dose: Not Given Roflumilast (Daliresp -) 500 mcg PO DAILY [facility] Last Admin: 04/27/17 09:36 Dose: 500 mcg - Objective Vital Signs: Vital Signs Temperature 97.9 F 04/27/17 08:00 Pulse Rate 94 H 04/27/17 08:00 Respiratory Rate 20 04/27/17 09:00 Blood Pressure 139/87 04/27/17 08:00 O2 Sat by Pulse Oximetry (%) 97 04/27/17 09:00 Constitutional: Yes: Well Nourished, Calm Eyes: Yes: WNL HENT: Yes: WNL Neck: Yes: WNL Cardiovascular: Yes: Regular Rate and Rhythm, S1, S2 Respiratory: Yes: Wheezes (heriberto wheezes) Gastrointestinal: Yes: Normal Bowel Sounds, Soft Extremities: Yes: WNL Edema: Yes Labs: CBC, BMP 04/27/17 05:35 04/27/17 05:35 INR, PTT INR 1.04 (0.82-1.09) 04/27/17 05:35 Problem List - Problems (1) Acute exacerbation of COPD with asthma Code(s): J44.1 - CHRONIC OBSTRUCTIVE PULMONARY DISEASE W (ACUTE) EXACERBATION J45.901 - UNSPECIFIED ASTHMA WITH (ACUTE) EXACERBATION (2) COPD (chronic obstructive pulmonary disease) case management patient Code(s): [id number] - (3) Chronic back pain Code(s): M54.9 - DORSALGIA, UNSPECIFIED G89.29 - OTHER CHRONIC PAIN (4) HTN (hypertension) Code(s): I10 - ESSENTIAL (PRIMARY) HYPERTENSION Qualifiers: Hypertension type: essential hypertension Qualified Code(s): I10 - Essential (primary) hypertension (5) Hyperlipidemia Code(s): E78.5 - HYPERLIPIDEMIA, UNSPECIFIED Qualifiers: Hyperlipidemia type: pure hypercholesterolemia Qualified Code(s): E78.00 - Pure hypercholesterolemia, unspecified; E78.0 - Pure hypercholesterolemia (6) Paroxysmal atrial fibrillation Code(s): I48.0 - PAROXYSMAL ATRIAL FIBRILLATION (7) Obesity (BMI 30.0-34.9) Code(s): E66.9 - OBESITY, UNSPECIFIED (8) Lactic acidosis Code(s): E87.2 - ACIDOSIS (9) Acute and chronic respiratory failure with hypoxia Code(s): J96.21 - ACUTE AND CHRONIC RESPIRATORY FAILURE WITH HYPOXIA Assessment/Plan Assessment/Plan ACUTE ON CHRONIC HYPOXEMIC RESPIRATORY FAILURE COPD O2 DEPENDENT WITH ACUTE EXACERBATION LIKELY ACUTE BRONCHITIS PAF HTN HLD PLAN CONTINUE IV MEDROL SAME DOSE INHALED BRONCHODILATORS BIPAP NEEDED ABG PRN ANTIBIOTICS PER ID DVT PROPHYLAXIX GI PROPHYLAXIS DR RUFFIN
[2017-04-27] MEDS: DILTIAZEM INJECTION 125 MG in DEXTROSE 5%-WATER - 100 ML IVPB SCH (13:12)
[2017-04-27 13:34] LABS: TROPONIN I < 0.02 ng/ml (0.00-0.05)
--- NOTE | 2017-04-27 17:42 | PN ---
Physical Exam: SUBJECTIVE: Patient seen and examined at bedside. Irritated about being transitioned from IV pushes of morphine to PO pain meds. Lengthy discussion with patient about the need to avoid overnarcotization for her chronic pain complaints as this has led, in the recent past, to multiple episodes of respiratory failure requiring intubation. Complaining of diarrhea and demanding immodium. Explained would need stool sample to r/o infectious process before giving immodium. Patient refuses to give stool sample. OBJECTIVE: Vital Signs Period Temp Pulse Resp BP Sys/Dan Pulse Ox Last 24 Hr 97 F-98.4 F 85-94 20-20 123-155/84-94 96-98 Patient refused physical exam. Observed patient speaking at length and in full sentences with no SOB, no accessory muscle use. Laboratory Results - last 24 hr 04/26/17 04/26/17 04/27/17 20:15 23:11 05:35 WBC 12.5 H RBC 3.72 Hgb 10.2 L Hct 31.1 L MCV 83.5 MCHC 32.8 RDW 18.2 H Plt Count 219 MPV 7.3 L Neutrophils % 93.0 H Lymphocytes % 1.0 L D Monocytes % 3.0 L Band Neutrophils 1.0 D Metamyelocytes 1 Myelocytes 1 D Nucleated RBCs 1 H Differential Comment Manual diff done Platelet Estimate Adequate INR PTT (Actin FS) Sodium Potassium Chloride Carbon Dioxide Anion Gap BUN Creatinine Creat Clearance w eGFR POC Glucometer 205 Random Glucose Calcium Total Bilirubin AST ALT Alkaline Phosphatase Troponin I < 0.02 Total Protein Albumin 04/27/17 04/27/17 04/27/17 05:35 05:35 05:35 WBC RBC Hgb Hct MCV MCHC RDW Plt Count MPV Neutrophils % Lymphocytes % Monocytes % Band Neutrophils Metamyelocytes Myelocytes Nucleated RBCs Differential Comment Platelet Estimate INR 1.04 PTT (Actin FS) 147.7 H D Sodium 142 Potassium 3.4 L Chloride 103 Carbon Dioxide 25 Anion Gap 14 BUN 23 H Creatinine 0.5 L Creat Clearance w eGFR > 60 POC Glucometer Random Glucose 218 H Calcium 8.4 L Total Bilirubin 0.3 AST 34 D ALT 57 D Alkaline Phosphatase 112 Troponin I < 0.02 Total Protein 5.6 L Albumin 2.8 L 04/27/17 04/27/17 04/27/17 06:43 11:15 15:49 WBC RBC Hgb Hct MCV MCHC RDW Plt Count MPV Neutrophils % Lymphocytes % Monocytes % Band Neutrophils Metamyelocytes Myelocytes Nucleated RBCs Differential Comment Platelet Estimate INR PTT (Actin FS) Sodium Potassium Chloride Carbon Dioxide Anion Gap BUN Creatinine Creat Clearance w eGFR POC Glucometer 193 232 148 Random Glucose Calcium Total Bilirubin AST ALT Alkaline Phosphatase Troponin I Total Protein Albumin Active Medications Generic Name Dose Route Start Last Admin Trade Name Freq PRN Reason Stop Dose Admin Acetaminophen 650 mg 04/23/17 16:30 04/25/17 19:30 Tylenol - PO 650 mg Q6H PRN Administration FEVER OR PAIN Albuterol/Ipratropium 1 amp 04/23/17 18:00 04/27/17 14:17 Duoneb - NEB 1 amp Q4HPO [facility] Administration Alprazolam 0.25 mg 04/23/17 22:00 04/27/17 09:34 Xanax - PO 0.25 mg BID [facility] Administration Budesonide/Formoterol Fumarate 2 puff 04/23/17 22:00 04/27/17 09:37 Symbicort 160/4.5mcg - IH 2 puff BID [facility] Administration Diltiazem HCl 360 mg 04/27/17 10:00 04/27/17 09:35 Cardizem Cd - PO 360 mg DAILY [facility] Administration Eletriptan 40 mg 04/24/17 09:31 04/26/17 22:29 Relpax - PO 40 mg Q6HPO PRN Administration HEADACHE Heparin Sodium (Porcine) 1,000 unit 04/26/17 17:08 Heparin - IVPUSH PRN PRN Heparin Heparin Sodium (Porcine) 5,000 unit 04/26/17 17:08 Heparin - IVPUSH PRN PRN Heparin IV Flush 4 ml 04/26/17 17:20 Triple Lumen Flush IVPUSH PRN PRN Protocol Diltiazem HCl 125 mg/ Dextrose 125 mls @ 5 mls/hr 04/26/17 13:00 04/27/17 13:12 IVPB Not Given TITR [facility] Protocol 5 MG/HR Heparin Sodium (Porcine) 25, 500 mls @ 16 mls/hr 04/26/17 17:15 04/27/17 12:00 000 unit/ Sodium Chloride IV 13 mls/hr TITR [facility] Administration Protocol 800 UNIT/HR Insulin Aspart 1 vial 04/23/17 18:36 04/27/17 16:06 Novolog Vial Sliding Scale - SQ Not Given ACHS [facility] Protocol Insulin Detemir 5 units 04/23/17 22:00 04/27/17 06:45 Levemir Vial SQ 5 units BID@0700,2200 [facility] Administration Levothyroxine Sodium 25 mcg 04/24/17 07:00 04/27/17 06:44 Synthroid - PO 25 mcg DAILY@0700 [facility] Administration Methylprednisolone Sodium Succinate 60 mg 04/27/17 10:00 04/27/17 17:15 Solu-Medrol - IVPB 60 mg Q8H-IV [facility] Administration Metoprolol Tartrate 12.5 mg 04/26/17 22:00 04/27/17 09:35 Lopressor - PO 12.5 mg BID [facility] Administration Multi-Ingredient Ointment 1 applic 04/23/17 22:00 04/27/17 09:34 Zinc Oxide TP 1 applic BID [facility] Administration Nystatin 1 applic 04/24/17 10:00 04/27/17 09:36 Nystop Powder - TP 1 applic DAILY [facility] Administration Nystatin 1 applic 04/23/17 21:00 04/27/17 09:34 Mycostatin Ointment - TP 1 applic BID [facility] Administration Ondansetron HCl 4 mg 04/23/17 16:30 04/26/17 20:22 Zofran - PO 4 mg Q4H PRN Administration NAUSEA Oxycodone HCl 10 mg 04/27/17 10:00 04/27/17 13:11 Oxycontin - PO 10 mg BID [facility] Administration Pancrelipase 3 cap 04/23/17 17:30 04/27/17 16:50 Eamon Turner 6,000 Units Capsule PO Not Given TIDCM [facility] Polyethylene Glycol 17 gm 04/24/17 10:00 04/27/17 09:36 Miralax (For Daily Use) - PO Not Given DAILY [facility] Roflumilast 500 mcg 04/24/17 10:00 04/27/17 09:36 Daliresp - PO 500 mcg DAILY [facility] Administration ASSESSMENT/PLAN 51 year-old female, well known to the hospitalist service, with a PMH of HTN, paroxysmal afib, NIDDM, asthma/COPD O2 dependent, previous tracheostomy (closed) , uterine cancer, anxiety/depression/ bipolar disorder, chronic back pain and a dependency on narcotics. COPD exacerbation --low suspicion of any infection in this patient who as been afebrile with unremarkable CXR; will continue empiric cefepime (day #2) --leukocytosis likely secondary to chronic steroid administration --satting 97% on nasal canula --continue Symbicort, dalrisep, start tapering IV steroids --BIPAP prn Lactic acidosis, resolved Paroxysmal afib with RVR --back in sinus rhythm with rate in 90s --cardizem drip weaned off, continue cardizem CD 360mg daily and low dose metoprolol --[id number] score 3; has not been on anticoagulation for the past 5 years due to h/o GI bleed; presently on heparin drip --need to discuss long-term anticoagulation Hypertension --continue cardizem, metoprolol IDDM --Levemir --Novolog sliding scale coverage Anxiety/depression/bipolar --continue xanax Chronic back pain --continue oxycontin --d/c morphine, sinequan, benadryl, baclofen due to respiratory issues F/E/N Fluids: PO intake adequate Electrolytes: repleted as indicated Nutrition: diabetic, low sodium DVT prophylaxis: on heparin drip Physical therapy Dispo: continues to require inpatient care. Full code. Visit type - Emergency Visit Emergency Visit: Yes ED Registration Date: 04/23/17 Care time: The patient presented to the Emergency Department on the above date and was hospitalized for further evaluation of their emergent condition. - New Patient This patient is new to me today: Yes Date on this admission: 04/27/17 - Critical Care Critical Care patient: No
[2017-04-27] MEDS ORDERED: BACLOFEN 10 MG TABLET (FP) PO ONE (20:16)
[2017-04-27] MEDS: LOPERAMIDE HCL 2 MG CAPSULE PO PRN (22:25)
[2017-04-27] MEDS: oxyCODONE HCL 10 MG SUSTAINED ACTING TABLET PO SCH (22:26)
[2017-04-28] MEDS: ALBUTEROL SO4 2.5/IPRATROPIUM 0.5 INH SOL 3 ML VIAL.NEB. NEB SCH ×6 (01:05→22:38)
[2017-04-28] MEDS: methylPREDNISolone NA SUCC 125 MG/2 ML VIAL IVPB SCH ×2 (02:19→09:59)
[2017-04-28] MEDS: INSULIN DETEMIR 100 UNITS/ML MDV SQ SCH ×2 (06:28→22:40)
[2017-04-28] MEDS: LEVOTHYROXINE NA 25 MCG TABLET (FP) PO SCH (06:28)
[2017-04-28] MEDS: INSULIN SLIDING SCALE (NOVOLOG) 1 VIAL SQ SCH ×4 (06:28→22:39)
[2017-04-28 07:53] LABS: MCH 27.6 pg (25.7-33.7); MCHC 33.2 g/dl (32.0-36.0); MEAN CELL VOLUME 83.1 fl (80-96); MEAN PLT VOLUME 7.1 fl (7.5-11.1); PLATELET COUNT 239 K/MM3 (134-434); WHITE BLOOD COUNT 13.4 K/mm3 (4.0-10.0)
[2017-04-28 08:46] LABS: ALBUMIN 2.9 g/dl (3.4-5.0); ANION GAP 10 (8-16); BILIRUBIN,TOTAL 0.3 mg/dL (0.2-1.0); CALCIUM 8.1 mg/dL (8.5-10.1); CO2 31 mmol/L (21-32); CREATININE 0.6 mg/dL (0.55-1.02); GLUCOSE,RANDOM 160 mg/dL (74-106); PHOSPHOROUS 2.8 mg/dL (2.5-4.9); SGOT/AST 21 U/L (15-37); SGPT/ALT 80 U/L (12-78); TOT PROT 5.9 g/dl (6.4-8.2)
[2017-04-28 08:47] LABS: ALK PHOS 114 U/L (45-117)
[2017-04-28 09:09] LABS: METAMYELOCYTE 2 % (0-2); PLATELET ESTIMATE ADEQUATE (NORMAL)
[2017-04-28] MEDS ORDERED: POTASSIUM CHLORIDE TABS 20 MEQ TABLET.ER (FP) PO ONE (09:28)
[2017-04-28] MEDS ORDERED: HEPARIN NA (PORCINE) 5,000 UNITS/ML 1ML VIAL IVPUSH PRN ×2 (09:38)
--- NOTE | 2017-04-28 09:53 | PN ---
Progress Note, Physician Chief Complaint: Breathing better this am on O2 via nasal cannula Anxious at times Patient wants to switch primary service and also asks to be put back of Baclofen that she had taken before History of Present Illness: Patient was seen and examined. Awake and alert. Chart was reviewed Dyspnea better, but persistent intermittent. BIPAP at night time AF now converted to sinus tachycardia and currently remains in sinus with HR of 90-100 - Current Medication List Current Medications: Active Medications Acetaminophen (Tylenol -) 650 mg PO Q6H PRN PRN Reason: FEVER OR PAIN Last Admin: 04/25/17 19:30 Dose: 650 mg Albuterol/Ipratropium (Duoneb -) 1 amp NEB Q4HPO [facility] Last Admin: 04/28/17 06:45 Dose: 1 amp Alprazolam (Xanax -) 0.25 mg PO BID [facility] Last Admin: 04/27/17 22:25 Dose: 0.25 mg Budesonide/Formoterol Fumarate (Symbicort 160/4.5mcg -) 2 puff IH BID [facility] Last Admin: 04/27/17 22:33 Dose: 2 puff Diltiazem HCl (Cardizem Cd -) 360 mg PO DAILY [facility] Last Admin: 04/27/17 09:35 Dose: 360 mg Eletriptan (Relpax -) 40 mg PO Q6HPO PRN PRN Reason: HEADACHE Last Admin: 04/26/17 22:29 Dose: 40 mg Heparin Sodium (Porcine) (Heparin -) 5,000 unit IVPUSH PRN PRN Heparin Sodium (Porcine) (Heparin -) 1,000 unit IVPUSH PRN PRN IV Flush (Triple Lumen Flush) 4 ml IVPUSH PRN PRN PRN Reason: Protocol Diltiazem HCl 125 mg/ Dextrose 125 mls @ 5 mls/hr IVPB TITR [facility]; 5 MG/HR PRN Reason: Protocol Last Admin: 04/27/17 13:12 Dose: Not Given Heparin Sodium (Porcine) 25, (000 unit/ Sodium Chloride) 500 mls @ 16 mls/hr IV TITR [facility]; 800 UNIT/HR PRN Reason: Protocol Last Admin: 04/27/17 20:32 Dose: 13 mls/hr Insulin Aspart (Novolog Vial Sliding Scale -) 1 vial SQ ACHS [facility] PRN Reason: Protocol Last Admin: 04/28/17 06:28 Dose: 4 units Insulin Detemir (Levemir Vial) 5 units SQ BID@0700,2200 [facility] Last Admin: 04/28/17 06:28 Dose: 5 units Levothyroxine Sodium (Synthroid -) 25 mcg PO DAILY@0700 [facility] Last Admin: 04/28/17 06:28 Dose: 25 mcg Loperamide HCl (Imodium -) 2 mg PO Q8H PRN PRN Reason: DIARRHEA Last Admin: 04/27/17 22:25 Dose: 2 mg Methylprednisolone Sodium Succinate (Solu-Medrol -) 60 mg IVPB Q8H-IV [facility] Last Admin: 04/28/17 02:19 Dose: 60 mg Metoprolol Tartrate (Lopressor -) 12.5 mg PO BID [facility] Last Admin: 04/27/17 22:24 Dose: 12.5 mg Multi-Ingredient Ointment (Zinc Oxide) 1 applic TP BID [facility] Last Admin: 04/27/17 22:33 Dose: 1 applic Nystatin (Nystop Powder -) 1 applic TP DAILY [facility] Last Admin: 04/27/17 09:36 Dose: 1 applic Nystatin (Mycostatin Ointment -) 1 applic TP BID [facility] Last Admin: 04/27/17 22:33 Dose: 1 applic Ondansetron HCl (Zofran -) 4 mg PO Q4H PRN PRN Reason: NAUSEA Last Admin: 04/26/17 20:22 Dose: 4 mg Oxycodone HCl (Oxycontin -) 20 mg PO BID [facility] Last Admin: 04/27/17 22:26 Dose: 20 mg Pancrelipase (Creon Dr 6,000 Units Capsule) 3 cap PO TIDCM [facility] Last Admin: 04/27/17 16:50 Dose: Not Given Polyethylene Glycol (Miralax (For Daily Use) -) 17 gm PO DAILY [facility] Last Admin: 04/27/17 09:36 Dose: Not Given Roflumilast (Daliresp -) 500 mcg PO DAILY [facility] Last Admin: 04/27/17 09:36 Dose: 500 mcg - Objective Vital Signs: Vital Signs Temperature 98.5 F 04/28/17 07:00 Pulse Rate 90 04/28/17 07:00 Respiratory Rate 20 04/28/17 07:00 Blood Pressure 124/80 04/28/17 07:00 O2 Sat by Pulse Oximetry (%) 97 04/27/17 21:00 HENT: Yes: Atraumatic Neck: Yes: Supple Cardiovascular: Yes: Regular Rate and Rhythm, S1, S2 Respiratory: Yes: Diminished, On Nasal O2 Gastrointestinal: Yes: Normal Bowel Sounds, Soft. No: Tenderness Edema: No Additional Findings/Remarks: - Review of Systems Cardiovascular: Denies: Chest Pain. denies: Palpitations, (+) Shortness of Breath Respiratory: Reports: Cough, denies: Hemoptysis, Orthopnea, PND, (+) SOB, SOB on Exertion Gastrointestinal: denies: Abdominal Pain, Constipation, Diarrhea, Melena, Nausea , Rectal Bleeding, Vomiting Neurological: denies: Dizziness, Headache, Seizure, Syncope Labs: CBC, BMP 04/28/17 05:38 04/28/17 05:38 INR, PTT INR 1.04 (0.82-1.09) 04/27/17 05:35 Problem List - Problems (1) Acute and chronic respiratory failure with hypoxia Code(s): J96.21 - ACUTE AND CHRONIC RESPIRATORY FAILURE WITH HYPOXIA (2) Acute exacerbation of COPD with asthma Code(s): J44.1 - CHRONIC OBSTRUCTIVE PULMONARY DISEASE W (ACUTE) EXACERBATION J45.901 - UNSPECIFIED ASTHMA WITH (ACUTE) EXACERBATION (3) Acute hypercapnic respiratory failure Code(s): J96.02 - ACUTE RESPIRATORY FAILURE WITH HYPERCAPNIA (4) HTN (hypertension) Code(s): I10 - ESSENTIAL (PRIMARY) HYPERTENSION Qualifiers: Hypertension type: essential hypertension Qualified Code(s): I10 - Essential (primary) hypertension (5) Hyperlipidemia Code(s): E78.5 - HYPERLIPIDEMIA, UNSPECIFIED Qualifiers: Hyperlipidemia type: pure hypercholesterolemia Qualified Code(s): E78.00 - Pure hypercholesterolemia, unspecified; E78.0 - Pure hypercholesterolemia (6) Paroxysmal atrial fibrillation Code(s): I48.0 - PAROXYSMAL ATRIAL FIBRILLATION (7) Diabetes mellitus Code(s): E11.9 - TYPE 2 DIABETES MELLITUS WITHOUT COMPLICATIONS Qualifiers: Diabetes mellitus type: type 2 Assessment/Plan 1. Acute on chronic hypoxemic respiratory failure referable to acute exacerbation of O2-dependent COPD currently back on CPAP with underlying anxiety 2. Atrial fibrillation with RVR - now in sinus tachycardia 3. PAF not on anticoagulation due to h/o GI bleed 4. HTN 5. Hyperlipidemia 6. Hypothyroidism 7. Insulin-dependent Type 2 DM PLAN 1. IV steroids, bronchodilator, empiric antibiotics, O2, Daliresp and BIPAP 2. Continue Cardizem CD 360 mg once a day and Lopressor 12.5 mg twice a day for rate control 3. Recommend starting Eliquis 5 mg BID in view of risk of stroke - [id number] score of 3+. Once started, consider discontinuing Heaprin drip 3. GI prophylaxis 4. Transthoracic echocardiography reviewed - normal LV systolic function and mild MR 5. F/U with patient's studio engineer:Dr. Rose and PCP:Dr. Jaquez upon discharge - consider restarting Baclofen or equivalent. 6. Nursing cab supervisor and hospitalist service working on changing service as requested by patient. Further plans are to follow aSe Celeste MD
[2017-04-28] MEDS: oxyCODONE HCL 10 MG SUSTAINED ACTING TABLET PO SCH ×2 (09:56→22:40)
[2017-04-28] MEDS: LIPASE/PROTEASE/AMYLASE 6,000 UNIT CAPSULE PO SCH ×3 (09:57→17:22)
[2017-04-28] MEDS: NYSTATIN 100000 UNIT/GM TOPICAL OINTMENT 15 GM TUBE TP SCH ×2 (09:58→22:39)
[2017-04-28] MEDS: ROFLUMILAST 500 MCG TABLET PO SCH (09:58)
[2017-04-28] MEDS: POLYETHYLENE GLYCOL 3350 119 GM BTL PO SCH (09:58)
[2017-04-28] MEDS: METOPROLOL TARTRATE 25 MG TABLET (FP) PO SCH ×2 (09:58→22:40)
[2017-04-28] MEDS: NYSTATIN POWDER 100,000 UNITS/GM - 15 GM TOPICAL POWDER TP SCH (09:59)
[2017-04-28] MEDS: BUDESONIDE/FORMETEROL FUMARATE 160/4.5 mcg INHALER IH SCH ×2 (09:59→22:39)
[2017-04-28] MEDS: ALPRAZolam 0.25 MG TABLET PO SCH ×2 (09:59→22:39)
[2017-04-28] MEDS: LOPERAMIDE HCL 2 MG CAPSULE PO PRN (10:00)
[2017-04-28] MEDS: ZINC OXIDE 20% TOPICAL OINTMENT 30 GM TUBE TP SCH ×2 (10:00→22:39)
--- NOTE | 2017-04-28 10:46 | PN ---
Progress Note, Physician History of Present Illness: pulmonary alert,less dyspneic,less congested. - Current Medication List Current Medications: Active Medications Acetaminophen (Tylenol -) 650 mg PO Q6H PRN PRN Reason: FEVER OR PAIN Last Admin: 04/25/17 19:30 Dose: 650 mg Albuterol/Ipratropium (Duoneb -) 1 amp NEB Q4HPO [facility] Last Admin: 04/28/17 06:45 Dose: 1 amp Alprazolam (Xanax -) 0.25 mg PO BID [facility] Last Admin: 04/28/17 09:59 Dose: 0.25 mg Budesonide/Formoterol Fumarate (Symbicort 160/4.5mcg -) 2 puff IH BID [facility] Last Admin: 04/28/17 09:59 Dose: 2 puff Diltiazem HCl (Cardizem Cd -) 360 mg PO DAILY [facility] Last Admin: 04/28/17 09:59 Dose: 360 mg Eletriptan (Relpax -) 40 mg PO Q6HPO PRN PRN Reason: HEADACHE Last Admin: 04/26/17 22:29 Dose: 40 mg Heparin Sodium (Porcine) (Heparin -) 5,000 unit IVPUSH PRN PRN Heparin Sodium (Porcine) (Heparin -) 1,000 unit IVPUSH PRN PRN IV Flush (Triple Lumen Flush) 4 ml IVPUSH PRN PRN PRN Reason: Protocol Diltiazem HCl 125 mg/ Dextrose 125 mls @ 5 mls/hr IVPB TITR [facility]; 5 MG/HR PRN Reason: Protocol Last Admin: 04/27/17 13:12 Dose: Not Given Heparin Sodium (Porcine) 25, (000 unit/ Sodium Chloride) 500 mls @ 16 mls/hr IV TITR [facility]; 800 UNIT/HR PRN Reason: Protocol Last Admin: 04/27/17 20:32 Dose: 13 mls/hr Insulin Aspart (Novolog Vial Sliding Scale -) 1 vial SQ ACHS [facility] PRN Reason: Protocol Last Admin: 04/28/17 06:28 Dose: 4 units Insulin Detemir (Levemir Vial) 5 units SQ BID@0700,2200 [facility] Last Admin: 04/28/17 06:28 Dose: 5 units Levothyroxine Sodium (Synthroid -) 25 mcg PO DAILY@0700 [facility] Last Admin: 04/28/17 06:28 Dose: 25 mcg Loperamide HCl (Imodium -) 2 mg PO Q8H PRN PRN Reason: DIARRHEA Last Admin: 04/27/17 22:25 Dose: 2 mg Methylprednisolone Sodium Succinate (Solu-Medrol -) 60 mg IVPB Q8H-IV [facility] Last Admin: 04/28/17 09:59 Dose: 60 mg Metoprolol Tartrate (Lopressor -) 12.5 mg PO BID [facility] Last Admin: 04/28/17 09:58 Dose: 12.5 mg Multi-Ingredient Ointment (Zinc Oxide) 1 applic TP BID [facility] Last Admin: 04/28/17 10:00 Dose: 1 applic Nystatin (Nystop Powder -) 1 applic TP DAILY [facility] Last Admin: 04/28/17 09:59 Dose: 1 applic Nystatin (Mycostatin Ointment -) 1 applic TP BID [facility] Last Admin: 04/28/17 09:58 Dose: 1 applic Ondansetron HCl (Zofran -) 4 mg PO Q4H PRN PRN Reason: NAUSEA Last Admin: 04/26/17 20:22 Dose: 4 mg Oxycodone HCl (Oxycontin -) 20 mg PO BID [facility] Last Admin: 04/28/17 09:56 Dose: 20 mg Pancrelipase (Creon Dr 6,000 Units Capsule) 3 cap PO TIDCM [facility] Last Admin: 04/28/17 09:57 Dose: Not Given Polyethylene Glycol (Miralax (For Daily Use) -) 17 gm PO DAILY [facility] Last Admin: 04/28/17 09:58 Dose: Not Given Roflumilast (Daliresp -) 500 mcg PO DAILY [facility] Last Admin: 04/28/17 09:58 Dose: 500 mcg - Objective Vital Signs: Vital Signs Temperature 98.5 F 04/28/17 07:00 Pulse Rate 90 04/28/17 07:00 Respiratory Rate 20 04/28/17 07:00 Blood Pressure 124/80 04/28/17 07:00 O2 Sat by Pulse Oximetry (%) 97 04/27/17 21:00 Constitutional: Yes: Well Nourished, Anxious Eyes: Yes: WNL HENT: Yes: WNL, Tonsillar Exudate Cardiovascular: Yes: Regular Rate and Rhythm, Tachycardia, S1, S2 Respiratory: Yes: Wheezes (bilateral wheezes) Gastrointestinal: Yes: Normal Bowel Sounds, Soft Extremities: Yes: WNL Edema: No Labs: CBC, BMP 04/28/17 05:38 04/28/17 05:38 INR, PTT INR 1.04 (0.82-1.09) 04/27/17 05:35 Problem List - Problems (1) Acute exacerbation of COPD with asthma Code(s): J44.1 - CHRONIC OBSTRUCTIVE PULMONARY DISEASE W (ACUTE) EXACERBATION J45.901 - UNSPECIFIED ASTHMA WITH (ACUTE) EXACERBATION (2) COPD (chronic obstructive pulmonary disease) case management patient Code(s): ZNG0757 - (3) Chronic back pain Code(s): M54.9 - DORSALGIA, UNSPECIFIED G89.29 - OTHER CHRONIC PAIN (4) HTN (hypertension) Code(s): I10 - ESSENTIAL (PRIMARY) HYPERTENSION Qualifiers: Qualified Code(s): I10 - Essential (primary) hypertension (5) Hyperlipidemia Code(s): E78.5 - HYPERLIPIDEMIA, UNSPECIFIED Qualifiers: Qualified Code(s): E78.00 - Pure hypercholesterolemia, unspecified; E78.0 - Pure hypercholesterolemia (6) Paroxysmal atrial fibrillation Code(s): I48.0 - PAROXYSMAL ATRIAL FIBRILLATION (7) Obesity (BMI 30.0-34.9) Code(s): E66.9 - OBESITY, UNSPECIFIED (8) Lactic acidosis Code(s): E87.2 - ACIDOSIS (9) Acute and chronic respiratory failure with hypoxia Code(s): J96.21 - ACUTE AND CHRONIC RESPIRATORY FAILURE WITH HYPOXIA Assessment/Plan Assessment/Plan ACUTE ON CHRONIC HYPOXEMIC RESPIRATORY FAILURE slowly improving COPD O2 DEPENDENT WITH ACUTE EXACERBATION LIKELY ACUTE BRONCHITIS PAF HTN HLD PLAN MEDROL TAPER INHALED BRONCHODILATORS BIPAP NEEDED DVT PROPHYLAXIX GI PROPHYLAXIS DR RUFFIN
[2017-04-28] MEDS ORDERED: BACLOFEN 10 MG TABLET (FP) PO ONE (11:45)
--- NOTE | 2017-04-28 16:35 | PN ---
Physical Exam: SUBJECTIVE: Patient seen and examined at bedside. No respiratory complaints. OBJECTIVE: Vital Signs Period Temp Pulse Resp BP Sys/Dan Pulse Ox Last 24 Hr 97.4 F-98.8 F 74-99 18-20 115-151/54-88 97-98 GENERAL: The patient is awake, alert, and fully oriented, in no acute distress. HEAD: Normal with no signs of trauma. Round face, cushionoid features EYES: PERRL, extraocular movements intact, sclera anicteric, conjunctiva clear. No ptosis. LUNGS: Coarse breath sounds, mild expiratory wheezing. No accessory muscle use. Speaking in complete sentences. HEART: Regular rate and rhythm, S1, S2 without murmur, rub or gallop. ABDOMEN: Soft, nontender, nondistended, normoactive bowel sounds, no guarding, no rebound, no hepatosplenomegaly, no masses. EXTREMITIES: 2+ pulses, warm, well-perfused, no edema. NEUROLOGICAL: Cranial nerves II through XII grossly intact. Normal speech, gait not observed. Laboratory Results - last 24 hr 04/27/17 04/27/17 04/28/17 17:45 22:20 05:38 WBC 13.4 H RBC 3.73 Hgb 10.3 L Hct 31.0 L MCV 83.1 MCHC 33.2 RDW 18.0 H Plt Count 239 MPV 7.1 L Neutrophils % 95.0 H Lymphocytes % 1.0 L Monocytes % 1.0 L Metamyelocytes 2 D Myelocytes 1 Differential Comment Manual diff done Platelet Estimate Adequate PTT (Actin FS) 57.6 H D Sodium Potassium Chloride Carbon Dioxide Anion Gap BUN Creatinine Creat Clearance w eGFR POC Glucometer 294 Random Glucose Calcium Phosphorus Magnesium Total Bilirubin AST ALT Alkaline Phosphatase Total Protein Albumin 04/28/17 04/28/17 04/28/17 05:38 05:38 05:40 WBC RBC Hgb Hct MCV MCHC RDW Plt Count MPV Neutrophils % Lymphocytes % Monocytes % Metamyelocytes Myelocytes Differential Comment Platelet Estimate PTT (Actin FS) 57.0 H Sodium 144 Potassium 3.4 L Chloride 103 Carbon Dioxide 31 D Anion Gap 10 BUN 31 H D Creatinine 0.6 Creat Clearance w eGFR > 60 POC Glucometer 166 Random Glucose 160 H D Calcium 8.1 L Phosphorus 2.8 Magnesium 2.0 Total Bilirubin 0.3 AST 21 D ALT 80 H D Alkaline Phosphatase 114 Total Protein 5.9 L Albumin 2.9 L 04/28/17 11:01 WBC RBC Hgb Hct MCV MCHC RDW Plt Count MPV Neutrophils % Lymphocytes % Monocytes % Metamyelocytes Myelocytes Differential Comment Platelet Estimate PTT (Actin FS) Sodium Potassium Chloride Carbon Dioxide Anion Gap BUN Creatinine Creat Clearance w eGFR POC Glucometer 156 Random Glucose Calcium Phosphorus Magnesium Total Bilirubin AST ALT Alkaline Phosphatase Total Protein Albumin Active Medications Generic Name Dose Route Start Last Admin Trade Name Freq PRN Reason Stop Dose Admin Acetaminophen 650 mg 04/23/17 16:30 04/25/17 19:30 Tylenol - PO 650 mg Q6H PRN Administration FEVER OR PAIN Albuterol/Ipratropium 1 amp 04/23/17 18:00 04/28/17 10:15 Duoneb - NEB 1 amp Q4HPO EMMY Administration Alprazolam 0.25 mg 04/23/17 22:00 04/28/17 09:59 Xanax - PO 0.25 mg BID EMMY Administration Apixaban 5 mg 04/28/17 18:00 Eliquis - PO BID EMMY Budesonide/Formoterol Fumarate 2 puff 04/23/17 22:00 04/28/17 09:59 Symbicort 160/4.5mcg - IH 2 puff BID EMMY Administration Diltiazem HCl 360 mg 04/27/17 10:00 04/28/17 09:59 Cardizem Cd - PO 360 mg DAILY EMMY Administration Eletriptan 40 mg 04/24/17 09:31 04/26/17 22:29 Relpax - PO 40 mg Q6HPO PRN Administration HEADACHE IV Flush 4 ml 04/26/17 17:20 Triple Lumen Flush IVPUSH PRN PRN Protocol Heparin Sodium (Porcine) 25, 500 mls @ 16 mls/hr 04/26/17 17:15 04/27/17 20:32 000 unit/ Sodium Chloride IV 04/28/17 18:00 13 mls/hr TITR EMMY Administration Protocol 800 UNIT/HR Insulin Aspart 1 vial 04/23/17 18:36 04/28/17 11:44 Novolog Vial Sliding Scale - SQ Not Given ACHS EMMY Protocol Insulin Detemir 5 units 04/23/17 22:00 04/28/17 06:28 Levemir Vial SQ 5 units BID@0700,2200 EMMY Administration Levothyroxine Sodium 25 mcg 04/24/17 07:00 04/28/17 06:28 Synthroid - PO 25 mcg DAILY@0700 EMMY Administration Loperamide HCl 2 mg 04/27/17 21:31 04/28/17 10:00 Imodium - PO 2 mg Q8H PRN Administration DIARRHEA Methylprednisolone Sodium Succinate 40 mg 04/29/17 10:00 Solu-Medrol - IVPB Q8H-IV EMMY Metoprolol Tartrate 12.5 mg 04/26/17 22:00 04/28/17 09:58 Lopressor - PO 12.5 mg BID EMMY Administration Multi-Ingredient Ointment 1 applic 04/23/17 22:00 04/28/17 10:00 Zinc Oxide TP 1 applic BID EMMY Administration Nystatin 1 applic 04/24/17 10:00 04/28/17 09:59 Nystop Powder - TP 1 applic DAILY EMMY Administration Nystatin 1 applic 04/23/17 21:00 04/28/17 09:58 Mycostatin Ointment - TP 1 applic BID EMMY Administration Ondansetron HCl 4 mg 04/23/17 16:30 04/26/17 20:22 Zofran - PO 4 mg Q4H PRN Administration NAUSEA Oxycodone HCl 20 mg 04/27/17 22:00 04/28/17 09:56 Oxycontin - PO 20 mg BID EMMY Administration Pancrelipase 3 cap 04/23/17 17:30 04/28/17 11:44 Eamon Turner 6,000 Units Capsule PO Not Given TIDCM EMMY Polyethylene Glycol 17 gm 04/24/17 10:00 04/28/17 09:58 Miralax (For Daily Use) - PO Not Given DAILY EMMY Roflumilast 500 mcg 04/24/17 10:00 04/28/17 09:58 Daliresp - PO 500 mcg DAILY EMMY Administration ASSESSMENT/PLAN 51 year-old female, well known to the hospitalist service, with a PMH of HTN, paroxysmal afib, NIDDM, asthma/COPD O2 dependent, previous tracheostomy (closed) , uterine cancer, anxiety/depression/ bipolar disorder, chronic back pain and a dependency on narcotics. COPD exacerbation --low suspicion for infection, afebrile, with unremarkable CXR; will continue empiric cefepime (day #3) --continue Symbicort, dalrisep, continue tapering IV steroids --BIPAP prn Lactic acidosis, resolved Paroxysmal afib with RVR --back in sinus rhythm with rate in 90s --continue cardizem CD 360mg daily and low dose metoprolol --[id number] score 3; d/c heparin drip this evening and start Eliquis 5mg BID Hypertension --continue cardizem, metoprolol IDDM --Levemir --Novolog sliding scale coverage Anxiety/depression/bipolar --continue xanax Chronic back pain --increased oxycontin 20mg BID --d/c morphine, sinequan, benadryl, baclofen due to respiratory issues; oversedation and overnarcotizaion has led to multiple episodes of respiratory failure requiring 3 intubations in February 2017 F/E/N Fluids: PO intake adequate Electrolytes: repleted as indicated Nutrition: diabetic, low sodium DVT prophylaxis: on heparin drip Physical therapy Dispo: continues to require inpatient care. Full code. Visit type - Emergency Visit Emergency Visit: Yes ED Registration Date: 04/23/17 Care time: The patient presented to the Emergency Department on the above date and was hospitalized for further evaluation of their emergent condition. - New Patient This patient is new to me today: No - Critical Care Critical Care patient: No
[2017-04-28] MEDS: APIXABAN 5 MG TABLET PO SCH (17:21)
[2017-04-28] MEDS ORDERED: APIXABAN 5 MG TABLET PO SCH (22:00)
[2017-04-29] MEDS: ALBUTEROL SO4 2.5/IPRATROPIUM 0.5 INH SOL 3 ML VIAL.NEB. NEB SCH ×4 (02:25→14:28)
[2017-04-29] MEDS: INSULIN SLIDING SCALE (NOVOLOG) 1 VIAL SQ SCH ×2 (06:20→12:36)
[2017-04-29] MEDS: INSULIN DETEMIR 100 UNITS/ML MDV SQ SCH (06:23)
[2017-04-29] MEDS: LEVOTHYROXINE NA 25 MCG TABLET (FP) PO SCH (06:23)
[2017-04-29] MEDS: ONDANSETRON 4 MG TABLET PO PRN (07:41)
[2017-04-29 09:08] VITALS: BP 124/68; TEMP 98.2
[2017-04-29] MEDS: APIXABAN 5 MG TABLET PO SCH (09:21)
[2017-04-29] MEDS: ALPRAZolam 0.25 MG TABLET PO SCH (09:21)
[2017-04-29] MEDS: oxyCODONE HCL 10 MG SUSTAINED ACTING TABLET PO SCH (09:21)
[2017-04-29] MEDS: METOPROLOL TARTRATE 25 MG TABLET (FP) PO SCH (09:22)
[2017-04-29] MEDS: LIPASE/PROTEASE/AMYLASE 6,000 UNIT CAPSULE PO SCH ×2 (09:23→12:36)
[2017-04-29] MEDS: POLYETHYLENE GLYCOL 3350 119 GM BTL PO SCH (09:23)
[2017-04-29] MEDS: ZINC OXIDE 20% TOPICAL OINTMENT 30 GM TUBE TP SCH (09:24)
[2017-04-29] MEDS: BUDESONIDE/FORMETEROL FUMARATE 160/4.5 mcg INHALER IH SCH (09:24)
[2017-04-29] MEDS: NYSTATIN 100000 UNIT/GM TOPICAL OINTMENT 15 GM TUBE TP SCH (09:24)
[2017-04-29] MEDS: NYSTATIN POWDER 100,000 UNITS/GM - 15 GM TOPICAL POWDER TP SCH (09:24)
[2017-04-29] MEDS ORDERED: PT OWN MED DRAWER 7, Y5N ONE (09:29)
[2017-04-29] MEDS: ROFLUMILAST 500 MCG TABLET PO SCH (09:35)
[2017-04-29] MEDS ORDERED: methylPREDNISolone NA SUCC 40 MG/1 ML VIAL IVPB SCH (10:00)
--- NOTE | 2017-04-29 10:02 | PN ---
Progress Note, Physician History of Present Illness: Dyspnea and cough improved, reports spasms. - Current Medication List Current Medications: Active Medications Acetaminophen (Tylenol -) 650 mg PO Q6H PRN PRN Reason: FEVER OR PAIN Last Admin: 04/25/17 19:30 Dose: 650 mg Albuterol/Ipratropium (Duoneb -) 1 amp NEB Q4HPO [facility] Last Admin: 04/29/17 06:40 Dose: 1 amp Alprazolam (Xanax -) 0.25 mg PO BID [facility] Last Admin: 04/29/17 09:21 Dose: 0.25 mg Apixaban (Eliquis -) 5 mg PO BID [facility] Last Admin: 04/29/17 09:21 Dose: 5 mg Budesonide/Formoterol Fumarate (Symbicort 160/4.5mcg -) 2 puff IH BID [facility] Last Admin: 04/29/17 09:24 Dose: 2 puff Diltiazem HCl (Cardizem Cd -) 360 mg PO DAILY [facility] Last Admin: 04/29/17 09:22 Dose: 360 mg Eletriptan (Relpax -) 40 mg PO Q6HPO PRN PRN Reason: HEADACHE Last Admin: 04/26/17 22:29 Dose: 40 mg IV Flush (Triple Lumen Flush) 4 ml IVPUSH PRN PRN PRN Reason: Protocol Insulin Aspart (Novolog Vial Sliding Scale -) 1 vial SQ ACHS EMMY PRN Reason: Protocol Last Admin: 04/29/17 06:20 Dose: Not Given Insulin Detemir (Levemir Vial) 5 units SQ BID@0700,2200 [facility] Last Admin: 04/29/17 06:23 Dose: 5 units Levothyroxine Sodium (Synthroid -) 25 mcg PO DAILY@0700 [facility] Last Admin: 04/29/17 06:23 Dose: 25 mcg Loperamide HCl (Imodium -) 2 mg PO Q8H PRN PRN Reason: DIARRHEA Last Admin: 04/28/17 10:00 Dose: 2 mg Methylprednisolone Sodium Succinate (Solu-Medrol -) 40 mg IVPB Q8H-IV [facility] Last Admin: 04/29/17 09:24 Dose: 40 mg Metoprolol Tartrate (Lopressor -) 12.5 mg PO BID [facility] Last Admin: 04/29/17 09:22 Dose: 12.5 mg Multi-Ingredient Ointment (Zinc Oxide) 1 applic TP BID [facility] Last Admin: 04/29/17 09:24 Dose: 1 applic Nystatin (Nystop Powder -) 1 applic TP DAILY [facility] Last Admin: 04/29/17 09:24 Dose: 1 applic Nystatin (Mycostatin Ointment -) 1 applic TP BID [facility] Last Admin: 04/29/17 09:24 Dose: 1 applic Ondansetron HCl (Zofran -) 4 mg PO Q4H PRN PRN Reason: NAUSEA Last Admin: 04/29/17 07:41 Dose: 4 mg Oxycodone HCl (Oxycontin -) 20 mg PO BID [facility] Last Admin: 04/29/17 09:21 Dose: 20 mg Pancrelipase (Creon Dr 6,000 Units Capsule) 3 cap PO TIDCM [facility] Last Admin: 04/29/17 09:23 Dose: Not Given Polyethylene Glycol (Miralax (For Daily Use) -) 17 gm PO DAILY [facility] Last Admin: 04/29/17 09:23 Dose: Not Given Roflumilast (Daliresp -) 500 mcg PO DAILY [facility] Last Admin: 04/29/17 09:35 Dose: 500 mcg - Objective Vital Signs: Vital Signs Temperature 98.2 F 04/29/17 08:10 Pulse Rate 114 H 04/29/17 08:10 Respiratory Rate 20 04/29/17 08:10 Blood Pressure 124/68 04/29/17 08:10 O2 Sat by Pulse Oximetry (%) 97 04/29/17 02:42 Constitutional: Yes: No Distress, Calm Neck: Yes: Supple Cardiovascular: Yes: Regular Rate and Rhythm Respiratory: Yes: Regular, Diminished Gastrointestinal: Yes: Normal Bowel Sounds, Soft, Abdomen, Obese Edema: No Labs: CBC, BMP 04/28/17 05:38 04/28/17 05:38 INR, PTT INR 1.04 (0.82-1.09) 04/27/17 05:35 - ....Imaging EKG: Report Reviewed (NSR occ PVC) Problem List - Problems (1) Acute and chronic respiratory failure with hypoxia Code(s): J96.21 - ACUTE AND CHRONIC RESPIRATORY FAILURE WITH HYPOXIA (2) HTN (hypertension) Code(s): I10 - ESSENTIAL (PRIMARY) HYPERTENSION Qualifiers: Hypertension type: essential hypertension Qualified Code(s): I10 - Essential (primary) hypertension (3) Hyperlipidemia Code(s): E78.5 - HYPERLIPIDEMIA, UNSPECIFIED Qualifiers: Hyperlipidemia type: pure hypercholesterolemia Qualified Code(s): E78.00 - Pure hypercholesterolemia, unspecified; E78.0 - Pure hypercholesterolemia (4) Paroxysmal atrial fibrillation Code(s): I48.0 - PAROXYSMAL ATRIAL FIBRILLATION (5) Acute exacerbation of chronic bronchitis Code(s): 466.0 - ACUTE BRONCHITIS (6) Diabetes mellitus Code(s): E11.9 - TYPE 2 DIABETES MELLITUS WITHOUT COMPLICATIONS Qualifiers: Diabetes mellitus type: type 2 (7) Hypothyroid Code(s): E03.9 - HYPOTHYROIDISM, UNSPECIFIED Qualifiers: Hypothyroidism type: unspecified Qualified Code(s): E03.9 - Hypothyroidism, unspecified Assessment/Plan 04/03/16 Dobutamine nuclear stress test at [facility] demonstrated normal myocardial perfusion, normal LVEF, & negative ECG. Transthoracic echocardiography reviewed - normal LV systolic function and mild MR 1. Acute on chronic hypoxemic respiratory failure referable to acute exacerbation of O2-dependent COPD currently back on CPAP with underlying anxiety improving 2. Paroxysmal atrial fibrillation with RVR - now in sinus rhythm 3. PAF not on anticoagulation due to h/o GI bleed 4. HTN 5. Hyperlipidemia 6. Hypothyroidism 7. Insulin-dependent Type 2 DM PLAN 1. IV steroid taper, bronchodilator, empiric antibiotics, O2, Daliresp and BIPAP as needed, replete K 2. Continue Cardizem CD 360 mg once a day and Lopressor 12.5 mg twice a day for rate control 3. Challenge with Eliquis 5 mg BID in view of risk of stroke - [id number] score of 3+. 4. GI prophylaxis 5. 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 Rose and PCP:Dr. Jaquez upon discharge - consider restarting Baclofen or equivalent.
--- NOTE | 2017-04-29 11:49 | PN ---
Progress Note, Physician History of Present Illness: PULMONARY ALERT,FEELING BETTER,-RESP DISTRESS - Current Medication List Current Medications: Active Medications Acetaminophen (Tylenol -) 650 mg PO Q6H PRN PRN Reason: FEVER OR PAIN Last Admin: 04/25/17 19:30 Dose: 650 mg Albuterol/Ipratropium (Duoneb -) 1 amp NEB Q4HPO [facility] Last Admin: 04/29/17 06:40 Dose: 1 amp Alprazolam (Xanax -) 0.25 mg PO BID [facility] Last Admin: 04/29/17 09:21 Dose: 0.25 mg Apixaban (Eliquis -) 5 mg PO BID [facility] Last Admin: 04/29/17 09:21 Dose: 5 mg Budesonide/Formoterol Fumarate (Symbicort 160/4.5mcg -) 2 puff IH BID [facility] Last Admin: 04/29/17 09:24 Dose: 2 puff Diltiazem HCl (Cardizem Cd -) 360 mg PO DAILY [facility] Last Admin: 04/29/17 09:22 Dose: 360 mg Eletriptan (Relpax -) 40 mg PO Q6HPO PRN PRN Reason: HEADACHE Last Admin: 04/26/17 22:29 Dose: 40 mg IV Flush (Triple Lumen Flush) 4 ml IVPUSH PRN PRN PRN Reason: Protocol Insulin Aspart (Novolog Vial Sliding Scale -) 1 vial SQ ACHS [facility] PRN Reason: Protocol Last Admin: 04/29/17 06:20 Dose: Not Given Insulin Detemir (Levemir Vial) 5 units SQ BID@0700,2200 [facility] Last Admin: 04/29/17 06:23 Dose: 5 units Levothyroxine Sodium (Synthroid -) 25 mcg PO DAILY@0700 [facility] Last Admin: 04/29/17 06:23 Dose: 25 mcg Loperamide HCl (Imodium -) 2 mg PO Q8H PRN PRN Reason: DIARRHEA Last Admin: 04/28/17 10:00 Dose: 2 mg Methylprednisolone Sodium Succinate (Solu-Medrol -) 40 mg IVPB Q8H-IV [facility] Last Admin: 04/29/17 09:24 Dose: 40 mg Metoprolol Tartrate (Lopressor -) 12.5 mg PO BID [facility] Last Admin: 04/29/17 09:22 Dose: 12.5 mg Multi-Ingredient Ointment (Zinc Oxide) 1 applic TP BID [facility] Last Admin: 04/29/17 09:24 Dose: 1 applic Nystatin (Nystop Powder -) 1 applic TP DAILY [facility] Last Admin: 04/29/17 09:24 Dose: 1 applic Nystatin (Mycostatin Ointment -) 1 applic TP BID [facility] Last Admin: 04/29/17 09:24 Dose: 1 applic Ondansetron HCl (Zofran -) 4 mg PO Q4H PRN PRN Reason: NAUSEA Last Admin: 04/29/17 07:41 Dose: 4 mg Oxycodone HCl (Oxycontin -) 20 mg PO BID [facility] Last Admin: 04/29/17 09:21 Dose: 20 mg Pancrelipase (Creon Dr 6,000 Units Capsule) 3 cap PO TIDCM [facility] Last Admin: 04/29/17 09:23 Dose: Not Given Polyethylene Glycol (Miralax (For Daily Use) -) 17 gm PO DAILY [facility] Last Admin: 04/29/17 09:23 Dose: Not Given Roflumilast (Daliresp -) 500 mcg PO DAILY [facility] Last Admin: 04/29/17 09:35 Dose: 500 mcg - Objective Vital Signs: Vital Signs Temperature 98.2 F 04/29/17 08:10 Pulse Rate 114 H 04/29/17 08:10 Respiratory Rate 20 04/29/17 08:10 Blood Pressure 124/68 04/29/17 08:10 O2 Sat by Pulse Oximetry (%) 97 04/29/17 02:42 Constitutional: Yes: Well Nourished, Calm Eyes: Yes: WNL HENT: Yes: WNL Neck: Yes: WNL Cardiovascular: Yes: Regular Rate and Rhythm, S1, S2 Respiratory: Yes: Wheezes (SCATTERED TAO WHEEZES) Gastrointestinal: Yes: Normal Bowel Sounds, Soft Extremities: Yes: WNL Edema: No Labs: CBC, BMP 04/28/17 05:38 04/28/17 05:38 INR, PTT INR 1.04 (0.82-1.09) 04/27/17 05:35 Problem List - Problems (1) Acute exacerbation of COPD with asthma Code(s): J44.1 - CHRONIC OBSTRUCTIVE PULMONARY DISEASE W (ACUTE) EXACERBATION J45.901 - UNSPECIFIED ASTHMA WITH (ACUTE) EXACERBATION (2) COPD (chronic obstructive pulmonary disease) case management patient Code(s): [id number] - (3) Chronic back pain Code(s): M54.9 - DORSALGIA, UNSPECIFIED G89.29 - OTHER CHRONIC PAIN (4) HTN (hypertension) Code(s): I10 - ESSENTIAL (PRIMARY) HYPERTENSION Qualifiers: Hypertension type: essential hypertension Qualified Code(s): I10 - Essential (primary) hypertension (5) Hyperlipidemia Code(s): E78.5 - HYPERLIPIDEMIA, UNSPECIFIED Qualifiers: Hyperlipidemia type: pure hypercholesterolemia Qualified Code(s): E78.00 - Pure hypercholesterolemia, unspecified; E78.0 - Pure hypercholesterolemia (6) Paroxysmal atrial fibrillation Code(s): I48.0 - PAROXYSMAL ATRIAL FIBRILLATION (7) Obesity (BMI 30.0-34.9) Code(s): E66.9 - OBESITY, UNSPECIFIED (8) Lactic acidosis Code(s): E87.2 - ACIDOSIS (9) Acute and chronic respiratory failure with hypoxia Code(s): J96.21 - ACUTE AND CHRONIC RESPIRATORY FAILURE WITH HYPOXIA Assessment/Plan Assessment/Plan ACUTE ON CHRONIC HYPOXEMIC RESPIRATORY FAILURE improving COPD O2 DEPENDENT WITH ACUTE EXACERBATION LIKELY ACUTE BRONCHITIS PAF HTN HLD PLAN STEROID TAPER INHALED BRONCHODILATORS BIPAP NEEDED DVT PROPHYLAXIX GI PROPHYLAXIS DR RUFFIN
[2017-04-29] MEDS ORDERED: BACLOFEN 10 MG TABLET (FP) PO ONE ×2 (12:15→13:24)
[2017-04-29] MEDS ORDERED: guaiFENesin/D-METHORPHAN HB 1 EACH TAB.ER.12H PO SCH (13:45)
[2017-04-29] MEDS ORDERED: ALBUTEROL SO4 0.083% IH SOL 2.5 MG/3 ML VIAL.NEB. NEB PRN (14:10)
[2017-04-29 14:46] VITALS: PULSE 93
--- NOTE | 2017-04-29 18:44 | DS ---
Physical Exam: SUBJECTIVE: Patient seen and examined. OBJECTIVE: Vital Signs Period Temp Pulse Resp BP Sys/Dan Pulse Ox Last 24 Hr 98.1 F-98.2 F 84-114 20-24 121-139/68-93 94-97 PHYSICAL EXAM GENERAL: The patient is awake, alert, and fully oriented, in no acute distress. HEAD: Normal with no signs of trauma. Round face, cushionoid features EYES: PERRL, extraocular movements intact, sclera anicteric, conjunctiva clear. No ptosis. LUNGS: Coarse breath sounds, mild expiratory wheezing. No accessory muscle use. Speaking in complete sentences. HEART: Regular rate and rhythm, S1, S2 without murmur, rub or gallop. ABDOMEN: Soft, nontender, nondistended, normoactive bowel sounds, no guarding, no rebound, no hepatosplenomegaly, no masses. EXTREMITIES: 2+ pulses, warm, well-perfused, no edema. NEUROLOGICAL: Cranial nerves II through XII grossly intact. Normal speech, gait not observed. LABS CBCD WBC 13.4 K/mm3 (4.0-10.0) H 04/28/17 05:38 RBC 3.73 M/mm3 (3.60-5.2) 04/28/17 05:38 Hgb 10.3 GM/dL (10.7-15.3) L 04/28/17 05:38 Hct 31.0 % (32.4-45.2) L 04/28/17 05:38 MCV 83.1 fl (80-96) 04/28/17 05:38 MCHC 33.2 g/dl (32.0-36.0) 04/28/17 05:38 RDW 18.0 % (11.6-15.6) H 04/28/17 05:38 Plt Count 239 K/MM3 (134-434) 04/28/17 05:38 MPV 7.1 fl (7.5-11.1) L 04/28/17 05:38 CMP Sodium 144 mmol/L (136-145) 04/28/17 05:38 Potassium 3.4 mmol/L (3.5-5.1) L 04/28/17 05:38 Chloride 103 mmol/L (98-107) 04/28/17 05:38 Carbon Dioxide 31 mmol/L (21-32) D 04/28/17 05:38 Anion Gap 10 (8-16) 04/28/17 05:38 BUN 31 mg/dL (7-18) H D 04/28/17 05:38 Creatinine 0.6 mg/dL (0.55-1.02) 04/28/17 05:38 Creat Clearance w eGFR > 60 (>60) 04/28/17 05:38 Calcium 8.1 mg/dL (8.5-10.1) L 04/28/17 05:38 Total Bilirubin 0.3 mg/dL (0.2-1.0) 04/28/17 05:38 AST 21 U/L (15-37) D 04/28/17 05:38 ALT 80 U/L (12-78) H D 04/28/17 05:38 Alkaline Phosphatase 114 U/L (45-117) 04/28/17 05:38 Total Protein 5.9 g/dl (6.4-8.2) L 04/28/17 05:38 Albumin 2.9 g/dl (3.4-5.0) L 04/28/17 05:38 Laboratory Results - last 24 hr 04/28/17 04/29/17 04/29/17 22:02 06:15 12:34 POC Glucometer 169 121 144 HOSPITAL COURSE: Date of Admission:04/23/17 Date of Discharge: 04/29/17 51 year-old female, well known to the hospitalist service, with a PMH of HTN, paroxysmal afib, NIDDM, asthma/COPD O2 dependent, previous tracheostomy (closed) , uterine cancer, anxiety/depression/ bipolar disorder, chronic back pain and a dependency on narcotics. Admitted for COPD exacerbation. COPD exacerbation --low suspicion for infection, afebrile, with unremarkable CXR; treated empirically with cefepime x 5 days --continue Symbicort, dalrisep, continue tapering IV steroids --BIPAP prn Lactic acidosis, resolved Paroxysmal afib with RVR --back in sinus rhythm with rate in 90s --continue cardizem CD 360mg daily and low dose metoprolol --[id number] score 3; d/c heparin drip; start Eliquis 5mg BID Hypertension --continue cardizem, metoprolol IDDM --Levemir --Novolog sliding scale coverage Anxiety/depression/bipolar --continue xanax Chronic back pain --increased oxycontin 20mg BID --d/c morphine, sinequan, benadryl, baclofen due to respiratory issues; oversedation and overnarcotizaion has led to multiple episodes of respiratory failure requiring 3 intubations in February 2017 Minutes to complete discharge: 35 Discharge Summary Reason For Visit: ACUTE EXACERBATION COPD WITH ASTHMA Current Active Problems Acute hypercapnic respiratory failure (Acute) Acute on chronic respiratory failure with hypoxia and hypercapnia (Acute) Acute and chronic respiratory failure (Chronic) COPD (chronic obstructive pulmonary disease) case management patient (Chronic) Chronic back pain (Chronic) Chronic respiratory failure with hypoxia (Chronic) Drug abuse and dependence (Chronic) HTN (hypertension) (Chronic) Hyperlipidemia (Chronic) Paroxysmal atrial fibrillation (Chronic) - Instructions Diet, Activity, Other Instructions: Patient was started on two new medications that should be continued: (1) metoprolol 12.5mg BID; (2) Eliquis 5mg BID. She is being discharged on a prednisone taper. Referrals: Manolo Jaquez [Primary Care Provider] - Disposition: HALFWAY FACILITY - Home Medications Comprehensive Discharge Medication List: Ambulatory Orders Levothyroxine [Synthroid -] 25 mcg PO DAILY@0700 tablet 06/05/16 Albuterol 2.5/Ipratropium 0.5 [Duoneb -] 1 amp NEB Q4HPO amp 09/17/16 Budesonide/Formeterol Fumarate [SYMBICORT 160/4.5mcg -] 2 inh PO BID 11/01/16 Lactobacillus Acidophilus [Bacid -] 1 tab PO BID tab 11/20/16 Ondansetron [Zofran -] 4 mg PO Q4H PRN #0 tablet 11/20/16 Zinc Oxide 1 applic TP BID tube 11/20/16 Cholecalciferol (Vitamin D3) [Vitamin D3 -] 2,000 unit PO DAILY #30 tab Albuterol Sulfate Inhaler - [Ventolin HFA Inhaler -] 2 puff IH Q4H PRN #0 inhaler 11/29/16 Omeprazole Magnesium [Prilosec] 20 mg PO BID 03/21/17 Acetaminophen [Tylenol .Regular Strength -] 650 mg PO Q6H PRN #0 tablet Alprazolam [Xanax] 0.25 mg PO BID tablet MDD 2 03/27/17 Diltiazem Cd [Cardizem Cd -] 360 mg PO DAILY #30 tab 03/27/17 Insulin (Levemir) [Levemir Vial] 5 units SQ BID@0700,2200 #5 unit 03/27/17 Insulin Sliding Scale [Novolog Vial Sliding Scale -] 1 vial SQ ACHS units 03/27 Lipase/Protease/Amylase [[place] Dr 6,000 Units Capsule] 3 cap PO TIDCM #90 cap Nystatin Powder [Nystop Powder -] 1 applic TP DAILY applic 03/27/17 Oxycodone Sr [Oxycontin] 10 mg PO BID #60 tab MDD 20mg 03/27/17 Roflumilast [Daliresp -] 500 mcg PO DAILY tablet 03/27/17 Cyproheptadine [Periactin -] 4 mg PO Q8H 04/23/17 Loperamide HCl [Imodium A-D] 1 tab PO Q4H PRN 04/23/17 Ranitidine HCl [Zantac] 150 mg PO HS 04/23/17 Simethicone 80 mg PO TID 04/23/17 Albuterol 2.5/Ipratropium 0.5 [Duoneb -] 1 amp NEB Q4HPO amp 04/29/17 Apixaban [Eliquis -] 5 mg PO BID tablet 04/29/17 Metoprolol Tartrate [Lopressor -] 12.5 mg PO BID tablet 04/29/17 Prednisone 10 mg PO ASDIR #50 tablet 04/29/17 This patient is new to me today: No Emergency Visit: Yes ED Registration Date: 04/23/17 Care time: The patient presented to the Emergency Department on the above date and was hospitalized for further evaluation of their emergent condition. Critical Care patient: No - Discharge Referral Referred to [facility] Med [facility] No
== END 2017-04-29 14:57 | DRG 189 ==
LOC: JER 12:03 → JERBED 12:40 → J4W 15:45
PROVIDERS: ADMIT Internal Medicine; ATTEND Nurse Practitioner Acute Care
PROC: 5A09357 Assistance with Respiratory Ventilation, Less than 24 Consecutive Hours, Continuous Positive Airway Pressure (ICD-10-PCS; principal; 2017-04-24)
DX: J96.21 Acute and chronic respiratory failure with hypoxia (principal); E87.2 Acidosis; F11.20 Opioid dependence, uncomplicated; J44.1 Chronic obstructive pulmonary disease with (acute) exacerbation; J44.0 Chronic obstructive pulmonary disease with (acute) lower respiratory infection; J45.901 Unspecified asthma with (acute) exacerbation; E66.01 Morbid (severe) obesity due to excess calories; J20.9 Acute bronchitis, unspecified; I10 Essential (primary) hypertension; E78.00 Pure hypercholesterolemia, unspecified; I48.0 Paroxysmal atrial fibrillation; Z79.4 Long term (current) use of insulin; Z87.891 Personal history of nicotine dependence; F41.9 Anxiety disorder, unspecified; F31.9 Bipolar disorder, unspecified; Z99.81 Dependence on supplemental oxygen; M54.5 Low back pain; R00.0 Tachycardia, unspecified; E11.9 Type 2 diabetes mellitus without complications; E78.5 Hyperlipidemia, unspecified; R19.7 Diarrhea, unspecified; Z85.42 Personal history of malignant neoplasm of other parts of uterus; Z68.25 Body mass index [BMI] 25.0-25.9, adult
CPT/HCPCS: 36415; 36600; 71010-TC; 80048; 80053; 81003; 81015; 82550; 82803; 83605; 83735; 83880; 84100; 84484; 85025; 85027; 85610; 85730; 87040; 87086; 87324; 87449; 93005; 93010; 93306-TC; 94640; 94660; 97162-GP; 99285-25; E0186; J0475; J1644

== ENCOUNTER 2018-05-08 14:05 | Emergency (ER) | payer OTHER ==
[2018-05-08 14:36] VITALS: BMI 28.3
[2018-05-08] MEDS ORDERED: ALBUTEROL SO4 2.5/IPRATROPIUM 0.5 INH SOL 3 ML VIAL.NEB. NEB ONE ×3 (14:44→19:47)
[2018-05-08] MEDS ORDERED: methylPREDNISolone NA SUCC 125 MG/2 ML VIAL IVPUSH ONE (14:56)
[2018-05-08] MEDS ORDERED: MAGNESIUM SULF 50% (8.12 MEQ/2 ML-1 GM VIAL) IVPB ONE (14:56)
[2018-05-08] MEDS ORDERED: morphine CARPU-JECT 4 MG/1 ML DISP.SYRIN IVPUSH ONE ×3 (15:10→20:34)
--- NOTE | 2018-05-08 15:12 | PDOC ---
History of Present Illness - History of Present Illness Initial Comments: Patient is a 52 year old female with a significant past medical history of COPD (on 6 L O2 at home) intubation, tracheostomy, morbid obesity, hypertension, hypercholesterolemia, paroxysmal atrial fibrillation, who presents to the ED for diffuse wheezing today. Patient states that yesterday she had an appointment to see her pain management doctor and states that she was without oxygen for 1.5 hours. Today, she states that at 6:30 am she had trouble breathing. She noticed a mucous plus when cleaning out the inner cannula of her tracheostomy tube. She usually only suctions at night. She reports diffuse wheezing as well as productive cough w/ red sputum today. She also reports associated headache and back pain. She also notes that her last BM was 3 days ago. She states that she was discharged from [facility] 03/17/18 and has not had any recent illness or hospitalizations until today. She states that she has been compliant with her regular medications. Denies sick contacts. Denies recent fever, chills, nausea, vomiting, diarrhea. She denies any chest pain, palpitations,or abdominal pain. Allergies: oxycodone, fentanyl Account Officer: Dr. Estrada PCP: Manolo Jaquez Hx: Lives at home. Former smoker (quit 2014) <Sharon Foreman - Last Filed: 05/08/18 16:11> - General History Source: Patient, Old Records Exam Limitations: No Limitations <Oskar Kay - Last Filed: 05/08/18 18:53> - General Chief Complaint: Wheezing Stated Complaint: DIFFICULTY BREATHING Time Seen by Provider: 05/08/18 14:43 Past History <Sharon Foreman - Last Filed: 05/08/18 16:11> - Past Medical History Anemia: Yes Asthma: Yes (COPD) Cancer: Yes (UTERINE) Cardiac Disorders: Yes (A-fib) CVA: No COPD: Yes CHF: No Dementia: No Diabetes: Yes GI Disorders: Yes (colitis, SB resection, GERD) Disorders: Yes (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) HTN: Yes Hypercholesterolemia: Yes Liver Disease: No Psychiatric Problems: Yes (ANXIETY) Seizures: Yes (5 yrs ago had a seizure ( zofran and reglan given together as per patient) Thyroid Disease: No - Surgical History Abdominal Surgery: Yes (BOWEL RESECTION) Appendectomy: Yes (removed 1998) Cardiac Surgery: No Cholecystectomy: No Lung Surgery: No Neurologic Surgery: No Orthopedic Surgery: Yes (Back Sx T7,6) - Immunization History Td Vaccination: Yes TDAP Vaccination: Yes Immunization Up to Date: Yes - Suicide/Smoking/Psychosocial Hx Smoking Status: No Smoking History: Former smoker Have you smoked in the past 12 months: No Number of Cigarettes Smoked Daily: 3 If you are a former smoker, when did you quit?: 2014 Information on smoking cessation initiated: No 'Breaking Loose' booklet given: 03/12/15 Hx Alcohol Use: No Drug/Substance Use Hx: No Substance Use Type: None Hx Substance Use Treatment: No <Oskar Kay - Last Filed: 05/08/18 18:53> - Past Medical History Allergies/Adverse Reactions: Allergies Allergy/AdvReac Type Severity Reaction Status Date / Time oxycodone [Oxycodone] Allergy Severe Nausea Verified 04/16/17 13:04 oxycodone HCl [From Percocet] Allergy Severe Nausea Verified 04/16/17 13:04 aspirin Allergy Mild Verified 04/16/17 13:04 blueberry [Blueberry] Allergy Mild Swelling Verified 04/16/17 13:04 fentanyl Allergy Verified 04/16/17 13:04 Home Medications: Ambulatory Orders Levothyroxine [Synthroid -] 25 mcg PO DAILY@0700 tablet 06/05/16 Albuterol 2.5/Ipratropium 0.5 [Duoneb -] 1 amp NEB Q4HPO amp 09/17/16 Budesonide/Formeterol Fumarate [SYMBICORT 160/4.5mcg -] 2 inh PO BID 11/01/16 Lactobacillus Acidophilus [Bacid -] 1 tab PO BID tab 11/20/16 Ondansetron [Zofran -] 4 mg PO Q4H PRN #0 tablet 11/20/16 Zinc Oxide 1 applic TP BID tube 11/20/16 Cholecalciferol (Vitamin D3) [Vitamin D3 -] 2,000 unit PO DAILY #30 tab Albuterol Sulfate Inhaler - [Ventolin HFA Inhaler -] 2 puff IH Q4H PRN #0 inhaler 11/29/16 Omeprazole Magnesium [Prilosec] 20 mg PO BID 03/21/17 Acetaminophen [Tylenol .Regular Strength -] 650 mg PO Q6H PRN #0 tablet Alprazolam [Xanax] 0.25 mg PO BID tablet MDD 2 03/27/17 Diltiazem Cd [Cardizem Cd -] 360 mg PO DAILY #30 tab 03/27/17 Insulin (Levemir) [Levemir Vial] 5 units SQ BID@0700,2200 #5 unit 03/27/17 Insulin Sliding Scale [Novolog Vial Sliding Scale -] 1 vial SQ ACHS units 03/27 Lipase/Protease/Amylase [Creon Dr 6,000 Units Capsule] 3 cap PO TIDCM #90 cap Nystatin Powder [Nystop Powder -] 1 applic TP DAILY applic 03/27/17 Roflumilast [Daliresp -] 500 mcg PO DAILY tablet 03/27/17 oxyCODONE SR [Oxycontin] 10 mg PO BID #60 tab MDD 20mg 03/27/17 Cyproheptadine [Periactin -] 4 mg PO Q8H 04/23/17 Loperamide HCl [Imodium A-D] 1 tab PO Q4H PRN 04/23/17 Ranitidine HCl [Zantac] 150 mg PO HS 04/23/17 Simethicone 80 mg PO TID 04/23/17 Albuterol 2.5/Ipratropium 0.5 [Duoneb -] 1 amp NEB Q4HPO amp 04/29/17 Apixaban [Eliquis -] 5 mg PO BID tablet 04/29/17 Metoprolol Tartrate [Lopressor -] 12.5 mg PO BID tablet 04/29/17 Prednisone 10 mg PO ASDIR #50 tablet 04/29/17 Review of Systems - Review of Systems Comments:: GENERAL/CONSTITUTIONAL: No fever or chills. No weakness. HEAD, EYES, EARS, NOSE AND THROAT: No change in vision. No ear pain or discharge. No sore throat. CARDIOVASCULAR: No chest pain or shortness of breath. RESPIRATORY: +productive cough, + hemoptysis, + wheezing. GASTROINTESTINAL: No nausea, vomiting, diarrhea, +constipation. GENITOURINARY: No dysuria, frequency, or change in urination. MUSCULOSKELETAL: No joint or muscle swelling or pain. No neck pain. + lower back pain. SKIN: No rash NEUROLOGIC: +headache, no vertigo, loss of consciousness, or change in strength/ sensation. ENDOCRINE: No increased thirst. No abnormal weight change. HEMATOLOGIC/LYMPHATIC: No anemia, easy bleeding, or history of blood clots. ALLERGIC/IMMUNOLOGIC: No hives or skin allergy. 05/08/18 16:13 <Sharon Foreman - Last Filed: 05/08/18 16:11> *Physical Exam - Vital Signs Last Vital Signs Temp Pulse Resp BP Pulse Ox 98.6 F 117 H 22 153/117 99 05/08/18 14:32 05/08/18 14:58 05/08/18 14:32 05/08/18 14:32 05/08/18 14:58 - Physical Exam Comments: GENERAL: Awake, alert, and fully oriented, in no acute distress HEAD: No signs of trauma EYES: PERRLA, EOMI, sclera anicteric, conjunctiva clear ENT: Auricles normal inspection, hearing grossly normal, nares patent. Tracheostomy tube - clean, dry and intact. Moist mucosa NECK: Normal ROM, supple, no lymphadenopathy, JVD, or masses LUNGS: Expiratory wheezes. No crackles HEART: Regular rate and rhythm, normal S1 and S2, no murmurs, rubs or gallops ABDOMEN: Soft, obese, nontender. No guarding, no rebound. No masses EXTREMITIES: Normal range of motion, no edema. No clubbing or cyanosis. No cords, erythema, or tenderness NEUROLOGICAL: Cranial nerves II through XII grossly intact. Normal speech, normal gait SKIN: Warm, Dry, normal turgor, no rashes or lesions noted. 05/08/18 16:15 <Sharon Foreman - Last Filed: 05/08/18 16:11> - Vital Signs Last Vital Signs Temp Pulse Resp BP Pulse Ox 98.6 F 117 H 22 153/117 99 05/08/18 14:32 05/08/18 14:58 05/08/18 14:32 05/08/18 14:32 05/08/18 14:58 <Oskar Kay - Last Filed: 05/08/18 18:53> Heart Score/ECG Review #1 ECG reviewed & interpreted by me at: 16:55 05/08/18 17:15 NSR 99, no std/ximena, normal axis, normal intervals QTC 413 msec <Oskar Kay - Last Filed: 05/08/18 18:53> ED Treatment Course - Medications Given in the ED: ED Medications Discontinued Medications Generic Name Dose Route Start Last Admin Trade Name Freq PRN Reason Stop Dose Admin Albuterol/Ipratropium 1 amp 05/08/18 14:56 05/08/18 15:00 Duoneb - NEB 05/08/18 14:57 1 amp ONCE ONE Administration <Sharon Foreman - Last Filed: 05/08/18 16:11> - LABORATORY CBC & Chemistry Diagram: 05/08/18 16:04 05/08/18 16:04 - RADIOLOGY Radiology Studies Ordered: Category Date Time Status CHEST X-RAY PORTABLE* [RAD] Stat Radiology 05/08/18 14:56 Ordered - Medications Given in the ED: ED Medications Discontinued Medications Generic Name Dose Route Start Last Admin Trade Name Freq PRN Reason Stop Dose Admin Albuterol/Ipratropium 1 amp 05/08/18 14:56 05/08/18 15:00 Duoneb - NEB 05/08/18 14:57 1 amp ONCE ONE Administration <Oskar Kay - Last Filed: 05/08/18 18:53> Medical Decision Making - Medical Decision Making 05/08/18 15:12 A portion of this note was documented by scribe services under my direction. I have reviewed the details of the note, within reason, and agree with the documentation with the following case summary and management plan written by me. Patient treated in the ED. Nursing notes are reviewed and incorporated into the medical decision-making. Vital signs reviewed. Peripheral IV access obtained by the nurse, laboratory studies are drawn and sent, reviewed and interpreted by myself. Vital Signs Temp Pulse Resp BP Pulse Ox 98.6 F 117 H 22 153/117 99 05/08/18 14:32 05/08/18 14:58 05/08/18 14:32 05/08/18 14:32 05/08/18 14:58 52-year-old female with history of chronic obstructive pulmonary disease status post tracheostomy on chronic 6 L of oxygen, obesity, hypertension, hyperlipidemia, atrial fibrillation on eliquis, hypertension, hyperlipidemia presents from home with difficulty breathing. Patient reported that yesterday that she had temporary viral oxygen for one hour. Since then, the patient has been reporting feeling short of breath and wheezy. This morning, she felt mucus plugging and some small streaks of blood in her cough. Stated that she states her own trach and suctioned herself. States she's been wheezing despite taking multiple nebulizers. Denies chest pain. Reports shortness of breath. Denies fevers or chills. Came by EMS for evaluation. The patient is nontoxic appearing and breathing completely but appears to be wheezing. I suspect she has likely COPD exacerbation. We'll obtain labs initiate dual nebs, Solu-Medrol and obtain chest x-ray. We'll reassess though I suspect patient will likely need to be admitted to the hospital for further management. 05/08/18 17:20 CBC, BMP 05/08/18 16:04 05/08/18 16:04 CMP Sodium 135 mmol/L (136-145) L 05/08/18 16:04 Potassium 5.1 mmol/L (3.5-5.1) 05/08/18 16:04 Chloride 97 mmol/L (98-107) L 05/08/18 16:04 Carbon Dioxide 30 mmol/L (21-32) 05/08/18 16:04 Anion Gap 8 (8-16) 05/08/18 16:04 BUN 18 mg/dL (7-18) 05/08/18 16:04 Creatinine 0.9 mg/dL (0.55-1.02) 05/08/18 16:04 Creat Clearance w eGFR > 60 (>60) 05/08/18 16:04 Random Glucose 409 mg/dL (74-106) H* 05/08/18 16:04 Calcium 8.9 mg/dL (8.5-10.1) 05/08/18 16:04 Phosphorus 3.9 mg/dL (2.5-4.9) 05/08/18 16:04 Magnesium 2.8 mg/dL (1.8-2.4) H 05/08/18 16:04 Total Bilirubin 0.2 mg/dL (0.2-1.0) D 05/08/18 16:04 AST 41 U/L (15-37) H 05/08/18 16:04 ALT 77 U/L (12-78) 05/08/18 16:04 Alkaline Phosphatase 146 U/L (45-117) H 05/08/18 16:04 Creatine Kinase 92 IU/L (26-192) 05/08/18 16:04 Troponin I < 0.02 ng/ml (0.00-0.05) 05/08/18 16:04 Total Protein 7.0 g/dl (6.4-8.2) 05/08/18 16:04 Albumin 3.2 g/dl (3.4-5.0) L 05/08/18 16:04 Chest xray reviewed by me, pending official radiology read. . No obvious infiltrates. However, lactic acid > 4. And with cough, will treat as pneumonia. Ceftriaxone and azithromycin. Pt does report feeling better overall. 05/08/18 18:51 The patient has reported that she really would like to go home. She overall does appear well and breathing comfortably. The patient does not want to stay in the hospital. I did speak with her and ultimately decided together that given her overall well -appearance, if her repeat lactic acid improves, the patient can be discharged home with nebs, prednisone, and azithromycin. However, if the lactic acid worsens, the patient agrees to be admitted. Case signed out to Dr. Guillen for further management. <Oskar Kay - Last Filed: 05/08/18 18:53> *DC/Admit/Observation/Transfer - Attestations Scribe Attestion: 05/08/18 16:21 Documentation prepared by Sharon Foreman, acting as medical billing associate for Oskar Kay MD. <Sharon Foreman - Last Filed: 05/08/18 16:11> - Discharge Dispostion Decision to Admit order: Yes <Oskar Kay - Last Filed: 05/08/18 18:53> Diagnosis at time of Disposition: COPD (chronic obstructive pulmonary disease) Qualifiers: COPD type: unspecified COPD Qualified Code(s): J44.9 - Chronic obstructive pulmonary disease, unspecified Pneumonia Qualifiers: Pneumonia type: due to unspecified organism Laterality: unspecified laterality Lung location: unspecified part of lung Qualified Code(s): J18.9 - Pneumonia, unspecified organism - Discharge Dispostion Condition at time of disposition: Stable - Referrals Referrals: Manolo Jaquez [Primary Care Provider] - - Patient Instructions - Post Discharge Activity
[2018-05-08] MEDS ORDERED: methylPREDNISolone NA SUCC 125 MG/2 ML VIAL ONE (15:16)
[2018-05-08] MEDS ORDERED: MAGNESIUM 1GM/D5W - 2 GM/200 ML IVPB IVPB ONE (15:17)
[2018-05-08] MEDS ORDERED: morphine SULFATE 4 MG/ML VIAL ONE ×3 (15:30→21:50)
[2018-05-08 16:15] LABS: BASO % 0.4 % (0-2.0); EOS % 0.1 % (0-4.5); HEMATOCRIT 34.9 % (32.4-45.2); HEMOGLOBIN 11.1 GM/dL (10.7-15.3); LYMPH % 7.4 % (8-40); MCHC 31.9 g/dl (32.0-36.0); MEAN CELL VOLUME 87.9 fl (80-96); MONO % 1.5 % (3.8-10.2); NEUT % 90.6 % (42.8-82.8); PLATELET COUNT 238 K/MM3 (134-434); RBC 3.97 M/mm3 (3.60-5.2); RDW 15.8 % (11.6-15.6); WHITE BLOOD COUNT 11.6 K/mm3 (4.0-10.0)
[2018-05-08 16:31] LABS: INR 1.14 (0.82-1.09); PROTHROMBIN TIME (PATIENT) 12.9 SEC (9.7-13.0)
[2018-05-08 16:33] LABS: ACTIVATED PTT 34.6 SECONDS (25.2-36.5)
[2018-05-08 16:41] LABS: ALBUMIN 3.2 g/dl (3.4-5.0); ANION GAP 8 (8-16); BLOOD UREA NITROGEN 18 mg/dL (7-18); CALCIUM 8.9 mg/dL (8.5-10.1); CHLORIDE 97 mmol/L (98-107); CO2 30 mmol/L (21-32); CREATININE 0.9 mg/dL (0.55-1.02); MAGNESIUM 2.8 mg/dL (1.8-2.4); PHOSPHOROUS 3.9 mg/dL (2.5-4.9); POTASSIUM 5.1 mmol/L (3.5-5.1); SGOT/AST 41 U/L (15-37); SGPT/ALT 77 U/L (12-78); SODIUM 135 mmol/L (136-145)
[2018-05-08 16:44] LABS: ALK PHOS 146 U/L (45-117); BILIRUBIN,TOTAL 0.2 mg/dL (0.2-1.0)
[2018-05-08 17:02] LABS: GLUCOSE,RANDOM 409 mg/dL (74-106)
[2018-05-08] MEDS ORDERED: AZITHROMYCIN 500 MG TABLET PO ONE (17:15)
[2018-05-08] MEDS ORDERED: AZITHROMYCIN IVPB 500 MG in DEXTROSE 5%-WATER - 250 ML IVPB ONE (17:19)
[2018-05-08] MEDS ORDERED: CEFTRIAXONE 1,000 MG in DEXTROSE 5%-WATER - 50 ML IVPB ONE (17:32)
[2018-05-08 17:33] LABS: URINE APPEARANCE CLEAR; URINE BILIRUBIN NEGATIVE (<2.0 mg/dL); URINE COLOR STRAW; URINE GLUCOSE (UA) 3+ (NEGATIVE); URINE KETONE NEGATIVE (NEGATIVE); URINE LEUK ESTERASE NEGATIVE (NEGATIVE); URINE NITRITE NEGATIVE (NEGATIVE); URINE UROBILINOGEN NEGATIVE mg/dL (0.2-1.0)
[2018-05-08 17:43] LABS: URINE PROTEIN 1+ (NEGATIVE)
[2018-05-08 17:44] LABS: EPI CELLS RARE /HPF (FEW); URINE BACTERIA RARE /hpf (NONE SEEN)
--- NOTE | 2018-05-08 18:30 | HP ---
CHIEF COMPLAINT: PCP: Dr. Manolo Jaquez, PCP Dr. Santiago, pulmonary HISTORY OF PRESENT ILLNESS: Patient is a 52 year old female with a significant past medical history of COPD , with home oxygen use, intubation, tracheostomy, morbid obesity, hypertension, hypercholesterolemia, paroxysmal atrial fibrillation (on eliquis) and diabetes mellitus. Patient presented to the ED for shortness of breath and diffuse wheezing today. Patient reports being without oxygen yesterday for a few hours and then developed trouble breathing early this morning. She noticed a mucous plus in her inner cannula of her trach. She reports wheezing and productive cough. During exam, patient is laying in bed in no acute distress, aide at bedside. Patient states she feels better and asking to go home. Advised her to stay and see pulmonary tomorrow as she was acutely short of breath on arrival. She is thinking about staying. She has the capacity to make her own decisions but encouraged to stay. ER course was notable for: (1) diffused wheezing on anterior lungs (2) elevated glucose (3) Trach +, in no acute respiratory distress Recent Travel: PAST MEDICAL HISTORY: PAST SURGICAL HISTORY: Social History: Smoking: Alcohol: Drugs: Family History: Allergies oxycodone [Oxycodone] Allergy (Severe, Verified 04/16/17 13:04) Nausea oxycodone HCl [From Percocet] Allergy (Severe, Verified 04/16/17 13:04) Nausea aspirin Allergy (Mild, Verified 04/16/17 13:04) blueberry [Blueberry] Allergy (Mild, Verified 04/16/17 13:04) Swelling fentanyl Allergy (Verified 04/16/17 13:04) HOME MEDICATIONS: Home Medications Medication Instructions Recorded Levothyroxine [Synthroid -] 25 mcg PO DAILY@0700 tablet 06/05/16 Albuterol 2.5/Ipratropium 0.5 1 amp NEB Q4HPO amp 09/17/16 [Duoneb -] Budesonide/Formeterol Fumarate 2 inh PO BID 11/01/16 [SYMBICORT 160/4.5mcg -] Lactobacillus Acidophilus [Bacid -] 1 tab PO BID tab 11/20/16 Ondansetron [Zofran -] 4 mg PO Q4H PRN #0 tablet 11/20/16 Zinc Oxide 1 applic TP BID tube 11/20/16 Cholecalciferol (Vitamin D3) 2,000 unit PO DAILY #30 tab 11/28/16 [Vitamin D3 -] Albuterol Sulfate Inhaler - 2 puff IH Q4H PRN #0 inhaler 11/29/16 [Ventolin HFA Inhaler -] Omeprazole Magnesium [Prilosec] 20 mg PO BID 03/21/17 Acetaminophen [Tylenol .Regular 650 mg PO Q6H PRN #0 tablet 03/27/17 Strength -] Alprazolam [Xanax] 0.25 mg PO BID tablet MDD 2 03/27/17 Diltiazem Cd [Cardizem Cd -] 360 mg PO DAILY #30 tab 03/27/17 Insulin (Levemir) [Levemir Vial] 5 units SQ BID@0700,2200 #5 unit 03/27/17 Insulin Sliding Scale [Novolog 1 vial SQ ACHS units 03/27/17 Vial Sliding Scale -] Lipase/Protease/Amylase [Eamon Turner 3 cap PO TIDCM #90 cap 03/27/17 6,000 Units Capsule] Nystatin Powder [Nystop Powder -] 1 applic TP DAILY applic 03/27/17 Roflumilast [Daliresp -] 500 mcg PO DAILY tablet 03/27/17 oxyCODONE SR [Oxycontin] 10 mg PO BID #60 tab MDD 20mg 03/27/17 Cyproheptadine [Periactin -] 4 mg PO Q8H 04/23/17 Loperamide HCl [Imodium A-D] 1 tab PO Q4H PRN 04/23/17 Ranitidine HCl [Zantac] 150 mg PO HS 04/23/17 Simethicone 80 mg PO TID 04/23/17 Albuterol 2.5/Ipratropium 0.5 1 amp NEB Q4HPO amp 04/29/17 [Duoneb -] Apixaban [Eliquis -] 5 mg PO BID tablet 04/29/17 Metoprolol Tartrate [Lopressor -] 12.5 mg PO BID tablet 04/29/17 Prednisone 10 mg PO ASDIR #50 tablet 04/29/17 PHYSICAL EXAMINATION Vital Signs - 24 hr 05/08/18 05/08/18 14:32 14:58 Temperature 98.6 F Pulse Rate 117 H 117 H Respiratory 22 Rate Blood Pressure 153/117 O2 Sat by Pulse 99 99 Oximetry (%) GENERAL: Awake, alert, and fully oriented, in no acute distress. HEAD: Normal with no signs of trauma. EYES: Pupils equal, round and reactive to light, extraocular movements intact, sclera anicteric, conjunctiva clear. No lid lag. EARS, NOSE, THROAT: Ears normal, nares patent, oropharynx clear without exudates. Moist mucous membranes. NECK: Normal range of motion, supple without lymphadenopathy, JVD, or masses. LUNGS:anterior breath sounds with mild expiratory wheezing, scattered diffused rhonchi bilaterally HEART: Regular rate and rhythm, normal S1 and S2 without murmur, rub or gallop. ABDOMEN: distended obese abdomen MUSCULOSKELETAL: No CVA tenderness. UPPER EXTREMITIES: 2+ pulses, warm, well-perfused. No cyanosis. No clubbing. No peripheral edema. LOWER EXTREMITIES: 2+ pulses, warm, well-perfused. No calf tenderness. No peripheral edema. NEUROLOGICAL: Normal speech. Normal gait. PSYCHIATRIC: Cooperative. Good eye contact. Appropriate mood and affect. Laboratory Results - last 24 hr 05/08/18 05/08/18 05/08/18 15:51 16:04 16:04 WBC 11.6 H RBC 3.97 Hgb 11.1 Hct 34.9 MCV 87.9 MCH 28.0 MCHC 31.9 L RDW 15.8 H D Plt Count 238 MPV 9.0 D Absolute Neuts (auto) 10.5 Neutrophils % 90.6 H Lymphocytes % 7.4 L D Monocytes % 1.5 L Eosinophils % 0.1 D Basophils % 0.4 D Nucleated RBC % 0 PT with INR 12.90 INR 1.14 PTT (Actin FS) 34.6 D Sodium Potassium Chloride Carbon Dioxide Anion Gap BUN Creatinine Creat Clearance w eGFR Random Glucose Lactic Acid 4.6 H* Calcium Phosphorus Magnesium Total Bilirubin AST ALT Alkaline Phosphatase Creatine Kinase Troponin I Total Protein Albumin Urine Color Urine Appearance Urine pH Ur Specific [place] Urine Protein Urine Glucose (UA) Urine Ketones Urine Blood Urine Nitrite Urine Bilirubin Urine Urobilinogen Ur Leukocyte Esterase Urine WBC (Auto) Urine RBC (Auto) Ur Epithelial Cells Urine Bacteria 05/08/18 05/08/18 16:04 17:08 WBC RBC Hgb Hct MCV MCH MCHC RDW Plt Count MPV Absolute Neuts (auto) Neutrophils % Lymphocytes % Monocytes % Eosinophils % Basophils % Nucleated RBC % PT with INR INR PTT (Actin FS) Sodium 135 L Potassium 5.1 Chloride 97 L Carbon Dioxide 30 Anion Gap 8 BUN 18 Creatinine 0.9 Creat Clearance w eGFR > 60 Random Glucose 409 H* Lactic Acid Calcium 8.9 Phosphorus 3.9 Magnesium 2.8 H Total Bilirubin 0.2 D AST 41 H ALT 77 Alkaline Phosphatase 146 H Creatine Kinase 92 Troponin I < 0.02 Total Protein 7.0 Albumin 3.2 L Urine Color Straw Urine Appearance Clear Urine pH 5.0 D Ur Specific [place] 1.025 Urine Protein 1+ H Urine Glucose (UA) 3+ H D Urine Ketones Negative Urine Blood 2+ H Urine Nitrite Negative Urine Bilirubin Negative Urine Urobilinogen Negative Ur Leukocyte Esterase Negative Urine WBC (Auto) 2 Urine RBC (Auto) 10 Ur Epithelial Cells Rare Urine Bacteria Rare ASSESSMENT/PLAN: Patient is a 52 year old female with a significant past medical history of COPD , with home oxygen use, intubation, tracheostomy, morbid obesity, hypertension, hypercholesterolemia, paroxysmal atrial fibrillation (on eliquis) and diabetes mellitus. Patient presented to the ED for shortness of breath and diffuse wheezing today. Patient reports being without oxygen yesterday for a few hours and then developed trouble breathing early this morning. She noticed a mucous plus in her inner cannula of her trach. She reports wheezing and productive cough. Pulmonary: Hypoxemia in the setting of acute COPD exacerbation On trach, wheezing anterior lungs, with scattred rhonchi Received Azithromycin and cenftraxone in ED Goal is to keep oxygen saturations >90% Support with duonebs, symbicort and asmanex and Solumedrol 40mg q6 Pulmonary consult Continue to monitor respiratory status ID: Rule out Pneumonia/mild Leukocytosis/Lactic acidosis - acute Assessment/Plan: Blood cultures, urine cultures pending Lactic acidosis, will give IVF and trend Repeat lactic acid tonight Psyche: Bipolar/anxiety/depression Assessment/Plan: continue psyche home meds Endocrine: Diabetes mellitus - chronic Assessment/Plan: Novolog sliding scale Monitor BGMs Cardiology: Proxy Atrial Fib On Cardizem, metoprolol and eliquis 5mg bid FEN Fluid: NS @ 100cc/hr Electrolytes: Monitor labs Nutrition: soft diet Prophylaxis DVT: SCD, GI: Zantac Disposition: Requires inpatient hospitalization. Visit type - Emergency Visit Emergency Visit: Yes Care time: The patient presented to the Emergency Department on the above date and was hospitalized for further evaluation of their emergent condition. - New Patient This patient is new to me today: Yes Date on this admission: 05/08/18 - Critical Care Critical Care patient: No Hospitalist Screening - Colonoscopy Questionnaire Colonoscopy Questionnaire: Colonoscopy Questionnaire - Patient: 50 - 75 years old and never had a screening colonoscopy: No History of colon or rectal polyps, or CA: No History of IBD, Crohn's disease or UC: No History of abdominal radiation therapy as a child: No - Relative: 1 with colon or rectal CA, or polyps at age 60 or younger: No Colon or rectal CA diagnosed at age 45 or younger: No Multiple relatives with colon or rectal CA: No - Outcome: Screening Result: Negative Screen
[2018-05-08] MEDS ORDERED: AZITHROMYCIN IVPB 250 ML IVPB ONE ×3 (18:43→19:36)
[2018-05-08] MEDS ORDERED: CEFTRIAXONE 1 GM/50 ML BAG ONE (18:43)
[2018-05-08] MEDS ORDERED: SODIUM CHLORIDE 1,000 ML IV STA (19:11)
[2018-05-08 19:45] VITALS: BP 131/102; PULSE 108; TEMP 98.1
[2018-05-08] MEDS ORDERED: ALBUTEROL SO4 2.5/IPRATROPIUM 0.5 INH SOL 3 ML VIAL.NEB. NEB SCH (20:00)
--- NOTE | 2018-05-08 20:30 | PDOC ---
*Physical Exam - Vital Signs Last Vital Signs Temp Pulse Resp BP Pulse Ox 98.1 F 108 H 20 131/102 100 05/08/18 19:44 05/08/18 19:44 05/08/18 19:44 05/08/18 19:44 05/08/18 19:44 ED Treatment Course - LABORATORY CBC & Chemistry Diagram: 05/08/18 16:04 05/08/18 16:04 - ADDITIONAL ORDERS Additional order review: Laboratory Results 05/08/18 05/08/18 05/08/18 19:25 17:08 16:04 PT with INR INR PTT (Actin FS) Sodium 135 L Potassium 5.1 Chloride 97 L Carbon Dioxide 30 Anion Gap 8 BUN 18 Creatinine 0.9 Creat Clearance w eGFR > 60 Random Glucose 409 H* Lactic Acid 4.3 H* Calcium 8.9 Phosphorus 3.9 Magnesium 2.8 H Total Bilirubin 0.2 D AST 41 H ALT 77 Alkaline Phosphatase 146 H Creatine Kinase 92 Troponin I < 0.02 Total Protein 7.0 Albumin 3.2 L Urine Color Straw Urine Appearance Clear Urine pH 5.0 D Ur Specific [place] 1.025 Urine Protein 1+ H Urine Glucose (UA) 3+ H D Urine Ketones Negative Urine Blood 2+ H Urine Nitrite Negative Urine Bilirubin Negative Urine Urobilinogen Negative Ur Leukocyte Esterase Negative Urine WBC (Auto) 2 Urine RBC (Auto) 10 Ur Epithelial Cells Rare Urine Bacteria Rare 05/08/18 05/08/18 16:04 15:51 PT with INR 12.90 INR 1.14 PTT (Actin FS) 34.6 D Sodium Potassium Chloride Carbon Dioxide Anion Gap BUN Creatinine Creat Clearance w eGFR Random Glucose Lactic Acid 4.6 H* Calcium Phosphorus Magnesium Total Bilirubin AST ALT Alkaline Phosphatase Creatine Kinase Troponin I Total Protein Albumin Urine Color Urine Appearance Urine pH Ur Specific [place] Urine Protein Urine Glucose (UA) Urine Ketones Urine Blood Urine Nitrite Urine Bilirubin Urine Urobilinogen Ur Leukocyte Esterase Urine WBC (Auto) Urine RBC (Auto) Ur Epithelial Cells Urine Bacteria 05/08/18 16:04 RBC 3.97 MCV 87.9 MCHC 31.9 L RDW 15.8 H D MPV 9.0 D Neutrophils % 90.6 H Lymphocytes % 7.4 L D Monocytes % 1.5 L Eosinophils % 0.1 D Basophils % 0.4 D - Medications Given in the ED: ED Medications Discontinued Medications Generic Name Dose Route Start Last Admin Trade Name Freq PRN Reason Stop Dose Admin Albuterol/Ipratropium 1 amp 05/08/18 14:56 05/08/18 15:00 Duoneb - NEB 05/08/18 14:57 1 amp ONCE ONE Administration Azithromycin 500 mg/ Dextrose 250 mls @ 250 mls/hr 05/08/18 17:19 05/08/18 18 :41 IVPB 05/08/18 18:18 250 mls/hr ONCE ONE Administration Ceftriaxone Sodium 1,000 mg/ 50 mls @ 100 mls/hr 05/08/18 17:32 05/08/18 19: 43 Dextrose IVPB 05/08/18 18:01 100 mls/hr ONCE ONE Administration Magnesium Sulfate 2 gm 05/08/18 14:56 05/08/18 15:40 Magnesium Sulfate IVPB 05/08/18 14:57 2 gm ONCE ONE Administration Methylprednisolone Sodium Succinate 125 mg 05/08/18 14:56 05/08/18 15:40 Solu-Medrol - IVPUSH 05/08/18 14:57 125 mg ONCE ONE Administration Morphine Sulfate 4 mg 05/08/18 15:10 05/08/18 15:45 Morphine Injection - IVPUSH 05/08/18 15:11 4 mg ONCE ONE Administration Morphine Sulfate 4 mg 05/08/18 17:15 05/08/18 18:41 Morphine Injection - IVPUSH 05/08/18 17:16 4 mg ONCE ONE Administration Medical Decision Making - Medical Decision Making 05/08/18 20:25 I received Ms Figueroa on sign out Briefly, she was seen in the ER for shortness of breath and wheezing Pt given nebs and Azithromycin pt not interested in staying in the hospital Pt was pending repeat lactate 05/08/18 20:26 Laboratory Tests 05/08/18 19:25 Lactic Acid 4.3 H* This is not effectively lower than prior Would place this patient on observation Pt at this time is refusing observation admission Will sign out AMA Will give prednisone 60 mg po daily AND Azithromycin Pt has follow up with Dr Santiago in 5 days Clinical impression: COPD exacerbation, initial presentation 05/08/18 20:34 Note: The patient insists on leaving the emergency dept and is signing out against medical advice. The patient understands the risks and complications that may result from the refusal of medical care and admission which includes and permanent disability. The patient has the mental capacity of understanding the risks of refusing care and is capable of making an informed decision. The patient was instructed to return to the emergency department should she change her mind regarding medical care or should her condition worsen. The patient signed the Against Medical Advice form. *DC/Admit/Observation/Transfer Diagnosis at time of Disposition: COPD (chronic obstructive pulmonary disease) Qualifiers: COPD type: unspecified COPD Qualified Code(s): J44.9 - Chronic obstructive pulmonary disease, unspecified Pneumonia Qualifiers: Pneumonia type: due to unspecified organism Laterality: unspecified laterality Lung location: unspecified part of lung Qualified Code(s): J18.9 - Pneumonia, unspecified organism - Discharge Dispostion Disposition: HOME Condition at time of disposition: Stable Decision to Admit order: No - Prescriptions Prescriptions: Azithromycin [Zithromax 250mg Tablets -] 250 mg PO UTDICT #6 tab predniSONE [Deltasone -] 60 mg PO DAILY #15 tablet - Referrals Referrals: Manolo Jaquez [Primary Care Provider] - Chaitanya Santiago MD [Staff Physician] - - Patient Instructions Printed Discharge Instructions: DI for Chronic Obstructive Pulmonary Disease, DI for Pneumonia -- Adult Additional Instructions: Ms Figueroa Please take antibiotics and prednisone as prescribed Please be sure to return to the ER for ANY fevers, difficulty breathing, increased mucous production, any other concerns or complaints Please keep your follow up appointment with Dr Santiago - Post Discharge Activity
[2018-05-08] MEDS ORDERED: SODIUM CHLORIDE 500 ML IV STA (21:04)
[2018-05-08] MEDS ORDERED: SODIUM CHLORIDE 1,000 ML IV SCH (21:15)
[2018-05-08] MEDS ORDERED: BUDESONIDE/FORMETEROL FUMARATE 160/4.5 mcg INHALER IH SCH (22:00)
[2018-05-08] MEDS ORDERED: ALPRAZolam 0.25 MG TABLET PO SCH (22:00)
[2018-05-08] MEDS ORDERED: LACTOBACILLUS ACIDOPHILUS 1 TABLET PO SCH (22:00)
[2018-05-08] MEDS ORDERED: METOPROLOL TARTRATE 25 MG TABLET (FP) PO SCH (22:00)
[2018-05-08] MEDS ORDERED: INSULIN (LEVEMIR) 100 UNITS/ML UNITS SQ SCH (22:00)
[2018-05-08] MEDS ORDERED: APIXABAN 5 MG TABLET PO SCH (22:00)
[2018-05-08] MEDS ORDERED: INSULIN SLIDING SCALE (NOVOLOG) 1 VIAL SQ SCH (22:00)
[2018-05-09] MEDS ORDERED: methylPREDNISolone NA SUCC 40 MG/1 ML VIAL IVPUSH SCH (02:00)
[2018-05-09] MEDS ORDERED: LEVOTHYROXINE NA 25 MCG TABLET (FP) PO SCH (07:00)
[2018-05-09] MEDS ORDERED: LIPASE/PROTEASE/AMYLASE 6,000 UNIT CAPSULE PO SCH (08:00)
--- NOTE | 2018-05-09 19:40 | EKG ---
Test Reason : Blood Pressure : / mmHG Vent. Rate : 099 BPM Atrial Rate : 099 BPM P-R Int : 154 ms QRS Dur : 084 ms QT Int : 322 ms P-R-T Axes : 037 002 045 degrees QTc Int : 413 ms NORMAL SINUS RHYTHM NORMAL ECG WHEN COMPARED WITH ECG OF 26-APR-2017 14:10, SINUS RHYTHM HAS REPLACED ATRIAL FIBRILLATION ST NO LONGER DEPRESSED IN ANTERIOR LEADS Confirmed by LATOYA WRIGHT, FANNY ([id number]) on 05/09/2018 7:40:13 PM Referred By: Confirmed By:FANNY KLEIN MD
== END 2018-05-08 22:12 | disposition home or self-care (01) ==
LOC: SUATTDRO 14:05 → JER 14:05
PROVIDERS: ATTEND Nurse Practitioner Family
PROC: 3E03329 Introduction of Other Anti-infective into Peripheral Vein, Percutaneous Approach (ICD-10-PCS; principal; 2018-05-08)
PROC: 3E03329 Introduction of Other Anti-infective into Peripheral Vein, Percutaneous Approach (ICD-10-PCS; 2018-05-08)
PROC: 3E0F7GC Introduction of Other Therapeutic Substance into Respiratory Tract, Via Natural or Artificial Opening (ICD-10-PCS; 2018-05-08)
PROC: 3E0F7GC Introduction of Other Therapeutic Substance into Respiratory Tract, Via Natural or Artificial Opening (ICD-10-PCS; 2018-05-08)
PROC: 3E0333Z Introduction of Anti-inflammatory into Peripheral Vein, Percutaneous Approach (ICD-10-PCS; 2018-05-08)
PROC: 3E0337Z Introduction of Electrolytic and Water Balance Substance into Peripheral Vein, Percutaneous Approach (ICD-10-PCS; 2018-05-08)
PROC: 3E033NZ Introduction of Analgesics, Hypnotics, Sedatives into Peripheral Vein, Percutaneous Approach (ICD-10-PCS; 2018-05-08)
PROC: 3E033NZ Introduction of Analgesics, Hypnotics, Sedatives into Peripheral Vein, Percutaneous Approach (ICD-10-PCS; 2018-05-08)
PROC: 3E033NZ Introduction of Analgesics, Hypnotics, Sedatives into Peripheral Vein, Percutaneous Approach (ICD-10-PCS; 2018-05-08)
PROC: 3E033NZ Introduction of Analgesics, Hypnotics, Sedatives into Peripheral Vein, Percutaneous Approach (ICD-10-PCS; 2018-05-08)
DX: J18.9 Pneumonia, unspecified organism (principal); J44.9 Chronic obstructive pulmonary disease, unspecified; J45.909 Unspecified asthma, uncomplicated; I10 Essential (primary) hypertension; I48.0 Paroxysmal atrial fibrillation; Z79.01 Long term (current) use of anticoagulants; Z86.69 Personal history of other diseases of the nervous system and sense organs; Z93.0 Tracheostomy status; E78.00 Pure hypercholesterolemia, unspecified; E11.9 Type 2 diabetes mellitus without complications; Z79.4 Long term (current) use of insulin
CPT/HCPCS: 36415; 71045-TC-FY; 80053; 81003; 81015; 82550; 83605; 83735; 84100; 84484; 85025; 85610; 85730; 87040; 87086; 93005; 93010; 94640; 96361; 96365; 96367; 96374; 96375; 96376; 99284-25; J7030; J7620

== ENCOUNTER 2018-05-18 16:23 | Emergency (ER) | payer OTHER ==
[2018-05-18] MEDS ORDERED: DEXAMETHASONE SOD PHOSPHATE 10 MG/1 ML VIAL IVPUSH ONE (17:49)
[2018-05-18] MEDS ORDERED: PROCHLORPERAZINE INJECTION 10 MG/2 ML VIAL IVPB ONE (17:49)
[2018-05-18] MEDS ORDERED: HYDROmorphone HCL 2 MG TABLET PO ONE (17:49)
[2018-05-18 17:59] VITALS: BMI 70.7
--- NOTE | 2018-05-18 18:30 | PDOC ---
History of Present Illness - General Chief Complaint: Headache Stated Complaint: Headache Time Seen by Provider: 05/18/18 16:41 History Source: Patient Exam Limitations: No Limitations - History of Present Illness Initial Comments: 05/18/18 18:25 Patient is a 52F with an extensive medical history including anemia, COPD, DM, afib stroke, asthma, anxiety, depression, migraines and trach 2/2 airway narrowing here today complaining of headache for the past two days. Patient describes her headache around her right eye with associated light and sound sensitivity. Patient describes her headache as a worse version of her chronic migraine. Onset was insidious. Denies fevers, chills, nausea vomiting. Patient lives at home with an aide. Patient also complains of some pain around her trach site with a small amount of blood around the site. Patient has ENT follow up set up for next week. Past History - Past Medical History Allergies/Adverse Reactions: Allergies Allergy/AdvReac Type Severity Reaction Status Date / Time oxycodone [Oxycodone] Allergy Severe Nausea Verified 05/18/18 16:29 oxycodone HCl [From Percocet] Allergy Severe Nausea Verified 05/18/18 16:29 aspirin Allergy Mild Verified 05/18/18 16:29 blueberry [Blueberry] Allergy Mild Swelling Verified 05/18/18 16:29 fentanyl Allergy Verified 05/18/18 16:29 Home Medications: Ambulatory Orders Levothyroxine [Synthroid -] 25 mcg PO DAILY@0700 tablet 06/05/16 Albuterol 2.5/Ipratropium 0.5 [Duoneb -] 1 amp NEB Q4HPO amp 09/17/16 Budesonide/Formeterol Fumarate [SYMBICORT 160/4.5mcg -] 2 inh PO BID 11/01/16 Lactobacillus Acidophilus [Bacid -] 1 tab PO BID tab 11/20/16 Ondansetron [Zofran -] 4 mg PO Q4H PRN #0 tablet 11/20/16 Zinc Oxide 1 applic TP BID tube 11/20/16 Cholecalciferol (Vitamin D3) [Vitamin D3 -] 2,000 unit PO DAILY #30 tab Albuterol Sulfate Inhaler - [Ventolin HFA Inhaler -] 2 puff IH Q4H PRN #0 inhaler 11/29/16 Omeprazole Magnesium [Prilosec] 20 mg PO BID 03/21/17 Acetaminophen [Tylenol .Regular Strength -] 650 mg PO Q6H PRN #0 tablet Alprazolam [Xanax] 0.25 mg PO BID tablet MDD 2 03/27/17 Diltiazem Cd [Cardizem Cd -] 360 mg PO DAILY #30 tab 03/27/17 Insulin (Levemir) [Levemir Vial] 5 units SQ BID@0700,2200 #5 unit 03/27/17 Insulin Sliding Scale [Novolog Vial Sliding Scale -] 1 vial SQ ACHS units 03/27 Lipase/Protease/Amylase [Creon Dr 6,000 Units Capsule] 3 cap PO TIDCM #90 cap Nystatin Powder [Nystop Powder -] 1 applic TP DAILY applic 03/27/17 Roflumilast [Daliresp -] 500 mcg PO DAILY tablet 03/27/17 oxyCODONE SR [Oxycontin] 10 mg PO BID #60 tab MDD 20mg 03/27/17 Cyproheptadine [Periactin -] 4 mg PO Q8H 04/23/17 Loperamide HCl [Imodium A-D] 1 tab PO Q4H PRN 04/23/17 Ranitidine HCl [Zantac] 150 mg PO HS 04/23/17 Simethicone 80 mg PO TID 04/23/17 Albuterol 2.5/Ipratropium 0.5 [Duoneb -] 1 amp NEB Q4HPO amp 04/29/17 Apixaban [Eliquis -] 5 mg PO BID tablet 04/29/17 Metoprolol Tartrate [Lopressor -] 12.5 mg PO BID tablet 04/29/17 Prednisone 10 mg PO ASDIR #50 tablet 04/29/17 Azithromycin [Zithromax 250mg Tablets -] 250 mg PO UTDICT #6 tab 05/08/18 predniSONE [Deltasone -] 60 mg PO DAILY #15 tablet 05/08/18 Azithromycin [Zithromax -] 250 mg PO UTDICT #6 tab 05/09/18 predniSONE [Deltasone -] 20 mg PO BID #10 tablet 05/09/18 Anemia: Yes Asthma: Yes (COPD, trach) Cancer: Yes (UTERINE) Cardiac Disorders: Yes (A-fib) CVA: No COPD: Yes CHF: No Dementia: No Diabetes: Yes GI Disorders: Yes (colitis, SB resection, GERD) Disorders: Yes (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) HTN: Yes Hypercholesterolemia: Yes Liver Disease: No Psychiatric Problems: Yes (ANXIETY) Seizures: Yes (5 yrs ago had a seizure ( zofran and reglan given together as per patient) Thyroid Disease: No - Surgical History Abdominal Surgery: Yes (BOWEL RESECTION) Appendectomy: Yes (removed 1998) Cardiac Surgery: No Cholecystectomy: No Lung Surgery: No Neurologic Surgery: No Orthopedic Surgery: Yes (Back Sx T7,6) - Immunization History Td Vaccination: Yes TDAP Vaccination: Yes Immunization Up to Date: Yes - Suicide/Smoking/Psychosocial Hx Smoking Status: No Smoking History: Unknown if ever smoked Have you smoked in the past 12 months: No Number of Cigarettes Smoked Daily: 3 If you are a former smoker, when did you quit?: 2014 Information on smoking cessation initiated: No 'Breaking Loose' booklet given: 03/12/15 Hx Alcohol Use: No Drug/Substance Use Hx: No Substance Use Type: None Hx Substance Use Treatment: No Review of Systems - Review of Systems Comments:: 05/18/18 18:28 GENERAL/CONSTITUTIONAL: No fever or chills. No weakness. HEAD, EYES, EARS, NOSE AND THROAT: No change in vision. No sore throat. CARDIOVASCULAR: No chest pain or shortness of breath RESPIRATORY: No cough, wheezing, or hemoptysis. GASTROINTESTINAL: No nausea, vomiting, diarrhea or constipation. GENITOURINARY: No dysuria, frequency, or change in urination. MUSCULOSKELETAL: No joint or muscle swelling or pain. No neck or back pain. SKIN: No rash NEUROLOGIC: +headache. No vertigo, loss of consciousness, or change in strength/ sensation. ENDOCRINE: No increased thirst. No abnormal weight change HEMATOLOGIC/LYMPHATIC: No anemia, easy bleeding, or history of blood clots. ALLERGIC/IMMUNOLOGIC: No hives or skin allergy. *Physical Exam - Vital Signs Last Vital Signs Temp Pulse Resp BP Pulse Ox 98.9 F 53 L 18 127/74 100 05/18/18 16:23 05/18/18 16:23 05/18/18 16:23 05/18/18 16:23 05/18/18 16:23 - Physical Exam Comments: 05/18/18 18:30 GENERAL: Awake, alert, and fully oriented, in no acute distress, trach HEAD: No signs of trauma, normocephalic, atraumatic EYES: PERRLA, EOMI, sclera anicteric, conjunctiva clear ENT: Auricles normal inspection, hearing grossly normal, nares patent, oropharynx clear without exudates. Moist mucosa. Trach site with small amount of blood around site. NECK: Normal ROM, supple, no lymphadenopathy, JVD, or masses LUNGS: No distress, speaks full sentences, clear to auscultation bilaterally HEART: Regular rate and rhythm, normal S1 and S2, no murmurs, rubs or gallops, peripheral pulses normal and equal bilaterally. ABDOMEN: Soft, nontender, normoactive bowel sounds. No guarding, no rebound. No masses EXTREMITIES: Normal inspection, Normal range of motion, no edema. No clubbing or cyanosis. NEUROLOGICAL: Cranial nerves II through XII grossly intact. Moves all extremities. SKIN: Warm, Dry, normal turgor, no rashes or lesions noted. Medical Decision Making - Medical Decision Making 05/18/18 18:31 Patient is a 52F with an extensive medical history including anemia, COPD, DM, afib stroke, asthma, anxiety, depression, migraines and trach 2/2 airway narrowing here today with headache. Patient reports unsuccessful trial of reglan and tylenol at home. Will give home dose of dilaudid 4mg, prochlorperazine 10mg and decadron 10mg. Basic labs drawn with IV. Signed out to Dr Schultz. *DC/Admit/Observation/Transfer Diagnosis at time of Disposition: Headache - Discharge Dispostion Condition at time of disposition: Good - Referrals Referrals: Manolo Jaquez [Primary Care Provider] - - Patient Instructions Printed Discharge Instructions: DI for Migraine Additional Instructions: Please return if you have any new, worsening or concerning symptoms. Please follow up with your primary care physician in the next week regarding your headaches. Please follow up with your ENT doctor next week as already planned regarding your trach site. - Post Discharge Activity
[2018-05-18] MEDS ORDERED: HYDROmorphone HCL 2 MG TABLET ONE (18:57)
[2018-05-18 19:07] LABS: HEMATOCRIT 38.5 % (32.4-45.2); HEMOGLOBIN 12.5 GM/dL (10.7-15.3); MCH 27.8 pg (25.7-33.7); MCHC 32.4 g/dl (32.0-36.0); MEAN CELL VOLUME 85.8 fl (80-96); MEAN PLT VOLUME 9.2 fl (7.5-11.1); PLATELET COUNT 316 K/MM3 (134-434); RBC 4.49 M/mm3 (3.60-5.2); RDW 15.7 % (11.6-15.6); WHITE BLOOD COUNT 11.4 K/mm3 (4.0-10.0)
[2018-05-18] MEDS ORDERED: DEXAMETHASONE SOD PHOSPHATE 10 MG/1 ML VIAL ONE (19:47)
[2018-05-18] MEDS ORDERED: PROCHLORPERAZINE INJECTION 10 MG/2 ML VIAL ONE (19:47)
[2018-05-18] MEDS ORDERED: morphine CARPU-JECT 2 MG/1 ML DISP.SYRIN IVPUSH ONE ×2 (20:19→21:44)
--- NOTE | 2018-05-18 20:19 | PDOC ---
Attending Attestation - Resident Resident Name: Antoine Lizama - ED Attending Attestation I have performed the following: I have examined & evaluated the patient, The case was reviewed & discussed with the resident, I agree w/resident's findings & plan, Exceptions are as noted - HPI HPI: 05/18/18 20:16 52 yo female w h/o migraines has had Gallegos for 2 days. It is like her previous headaches but not responding to her diluadid - Physicial Exam PE: 05/18/18 20:17 alert and conversant 52 yo female with trach collar head ncat neck trach is intact lungs scattered rhonchi [facility] [id number] and soft nontender neuro axox3,moving her extremities purposefully - Medical Decision Making pt DENIES any allergies to morphine. She states she has had morphine in the past and she has no problem with morphine 05/18/18 21:43 pt is requesting [facility] to return home -morphine resolved pain IMP migraines 05/18/18 21:45 05/19/18 00:39 there has been an extensive wait for ambulance
[2018-05-18] MEDS ORDERED: MORPHINE SULFATE 2 MG/ML VIAL ONE ×2 (20:56→21:48)
--- NOTE | 2018-05-18 21:53 | PDOC ---
*Physical Exam - Vital Signs Last Vital Signs Temp Pulse Resp BP Pulse Ox 98.9 F 53 L 18 127/74 100 05/18/18 16:23 05/18/18 16:23 05/18/18 16:23 05/18/18 16:23 05/18/18 16:23 ED Treatment Course - LABORATORY CBC & Chemistry Diagram: 05/18/18 18:00 05/18/18 18:00 - ADDITIONAL ORDERS Additional order review: Laboratory Results 05/18/18 05/18/18 19:52 18:00 Sodium Cancelled Cancelled Potassium Cancelled Cancelled Chloride Cancelled Cancelled Carbon Dioxide Cancelled Cancelled Anion Gap Cancelled Cancelled BUN Cancelled Cancelled Creatinine Cancelled Cancelled Creat Clearance w eGFR Cancelled Cancelled Random Glucose Cancelled Cancelled Calcium Cancelled Cancelled Total Bilirubin Cancelled Cancelled AST Cancelled Cancelled ALT Cancelled Cancelled Alkaline Phosphatase Cancelled Cancelled Total Protein Cancelled Cancelled Albumin Cancelled Cancelled 05/18/18 18:00 RBC 4.49 MCV 85.8 MCHC 32.4 RDW 15.7 H MPV 9.2 - Medications Given in the ED: ED Medications Discontinued Medications Generic Name Dose Route Start Last Admin Trade Name Freq PRN Reason Stop Dose Admin Dexamethasone Sodium Phosphate 10 mg 05/18/18 17:49 05/18/18 19:45 Decadron Injection - IVPUSH 05/18/18 17:50 10 mg ONCE ONE Administration Hydromorphone HCl 4 mg 05/18/18 17:49 05/18/18 17:50 Dilaudid - PO 05/18/18 17:50 4 mg ONCE ONE Administration Morphine Sulfate 2 mg 05/18/18 20:19 05/18/18 21:01 Morphine Injection - IVPUSH 05/18/18 20:20 2 mg ONCE ONE Administration Prochlorperazine Edisylate 10 mg 05/18/18 17:49 05/18/18 19:45 Compazine Injection - IVPB 05/18/18 17:50 10 mg ONCE ONE Administration *DC/Admit/Observation/Transfer Diagnosis at time of Disposition: Headache Qualifiers: Headache type: tension-type Headache chronicity pattern: unspecified pattern Intractability: not intractable Qualified Code(s): G44.209 - Tension-type headache, unspecified, not intractable - Discharge Dispostion Condition at time of disposition: Stable - Referrals Referrals: Manolo Jaquez [Primary Care Provider] - - Patient Instructions Printed Discharge Instructions: DI for Migraine Additional Instructions: Please return if you have any new, worsening or concerning symptoms. Please follow up with your primary care physician in the next week regarding your headaches. Please follow up with your ENT doctor next week as already planned regarding your trach site. - Post Discharge Activity
[2018-05-19] MEDS ORDERED: MICONAZOLE NITRATE 100 MG SUPP SUPP.VAG PV STA (00:41)
[2018-05-19] MEDS ORDERED: morphine CARPU-JECT 2 MG/1 ML DISP.SYRIN IVPUSH ONE (00:41)
[2018-05-19] MEDS ORDERED: MORPHINE SULFATE 2 MG/ML VIAL ONE (01:14)
[2018-05-19 02:20] VITALS: BP 118/76; PULSE 102; TEMP 98.5
== END 2018-05-19 02:20 | disposition home or self-care (01) ==
LOC: JER 16:23
PROC: 3E033NZ Introduction of Analgesics, Hypnotics, Sedatives into Peripheral Vein, Percutaneous Approach (ICD-10-PCS; principal; 2018-05-18)
PROC: 3E033GC Introduction of Other Therapeutic Substance into Peripheral Vein, Percutaneous Approach (ICD-10-PCS; 2018-05-18)
DX: R51 Headache (principal); J44.9 Chronic obstructive pulmonary disease, unspecified; E11.9 Type 2 diabetes mellitus without complications; I48.91 Unspecified atrial fibrillation; J45.909 Unspecified asthma, uncomplicated; F32.9 Major depressive disorder, single episode, unspecified; Z87.891 Personal history of nicotine dependence; E78.00 Pure hypercholesterolemia, unspecified; I10 Essential (primary) hypertension; Z85.42 Personal history of malignant neoplasm of other parts of uterus
CPT/HCPCS: 36415; 85027; 96374; 96375; 96376; 99281-25; J1100

== ENCOUNTER 2018-06-27 19:46 | Observation (INO) | payer OTHER ==
[2018-06-27 20:14] VITALS: BMI 32.3
[2018-06-27] MEDS ORDERED: ACETAMINOPHEN 1000 MG/100 ML VIAL (NON FORMULARY) IVPB ONE (20:33)
--- NOTE | 2018-06-27 20:36 | PDOC ---
History of Present Illness - General Chief Complaint: Pain Stated Complaint: BACK PAIN Time Seen by Provider: 06/27/18 20:17 History Source: Patient Exam Limitations: No Limitations - History of Present Illness Initial Comments: 06/27/18 20:38 This is a 52 YOF who is medically complex, with h/o tracheostomy one year ago ( states because of tracheal narrowing), intermittent bleeding from tracheostomy site, anemia, COPD (on home O2), DM, atrial fibrillation, CVA, asthma, anxiety, depression, chronic back pain, migraines, and uterine CA s/p hysterectomy who p/ w multiple complaints. She notes that over the past two days she has been having NBNB vomiting (3 episodes today), abdominal distention and stomach discomfort, urinary frequency (states urinating every 20 minutes), worsened chronic back pain, and more bleeding than usual from her tracheostomy site. For the past month she has been struggling with worsening nausea, constipation, milder bleeding from the trach site, cough, occasional chest pain (last episode this morning), worsening back pain, and bruising in her perineum for which she has an appointment to see a computer discovery teacher early next week. She saw her PCP on Thursday and discussed several of these problems. The patient denies fever. Her last BM was this morning and was large and nonbloody, not black or white. Regarding the worsened chronic tracheostomy site bleeding, the patient notes that she originally had a size 9 trach tube placed a year ago, but this was switched to a size 8 months ago, and she is supposed to switch to a size 7 but has not yet been able to do so because this size is on backorder. She believes this is the cause of the bleeding. She has been suctioning herself as per usual. Past History - Past Medical History Allergies/Adverse Reactions: Allergies Allergy/AdvReac Type Severity Reaction Status Date / Time oxycodone [Oxycodone] Allergy Severe Nausea Verified 05/18/18 16:29 oxycodone HCl [From Percocet] Allergy Severe Nausea Verified 05/18/18 16:29 aspirin Allergy Mild Verified 05/18/18 16:29 blueberry [Blueberry] Allergy Mild Swelling Verified 05/18/18 16:29 fentanyl Allergy Verified 05/18/18 16:29 Home Medications: Ambulatory Orders Levothyroxine [Synthroid -] 25 mcg PO DAILY@0700 tablet 06/05/16 Albuterol 2.5/Ipratropium 0.5 [Duoneb -] 1 amp NEB Q4HPO amp 09/17/16 Budesonide/Formeterol Fumarate [SYMBICORT 160/4.5mcg -] 2 inh PO BID 11/01/16 Lactobacillus Acidophilus [Bacid -] 1 tab PO BID tab 11/20/16 Ondansetron [Zofran -] 4 mg PO Q4H PRN #0 tablet 11/20/16 Zinc Oxide 1 applic TP BID tube 11/20/16 Cholecalciferol (Vitamin D3) [Vitamin D3 -] 2,000 unit PO DAILY #30 tab Albuterol Sulfate Inhaler - [Ventolin HFA Inhaler -] 2 puff IH Q4H PRN #0 inhaler 11/29/16 Omeprazole Magnesium [Prilosec] 20 mg PO BID 03/21/17 Acetaminophen [Tylenol .Regular Strength -] 650 mg PO Q6H PRN #0 tablet Alprazolam [Xanax] 0.25 mg PO BID tablet MDD 2 03/27/17 Diltiazem Cd [Cardizem Cd -] 360 mg PO DAILY #30 tab 03/27/17 Insulin (Levemir) [Levemir Vial] 5 units SQ BID@0700,2200 #5 unit 03/27/17 Insulin Sliding Scale [Novolog Vial Sliding Scale -] 1 vial SQ ACHS units 03/27 Lipase/Protease/Amylase [Creon Dr 6,000 Units Capsule] 3 cap PO TIDCM #90 cap Nystatin Powder [Nystop Powder -] 1 applic TP DAILY applic 03/27/17 Roflumilast [Daliresp -] 500 mcg PO DAILY tablet 03/27/17 oxyCODONE SR [Oxycontin] 10 mg PO BID #60 tab MDD 20mg 03/27/17 Cyproheptadine [Periactin -] 4 mg PO Q8H 04/23/17 Loperamide HCl [Imodium A-D] 1 tab PO Q4H PRN 04/23/17 Ranitidine HCl [Zantac] 150 mg PO HS 04/23/17 Simethicone 80 mg PO TID 04/23/17 Albuterol 2.5/Ipratropium 0.5 [Duoneb -] 1 amp NEB Q4HPO amp 04/29/17 Apixaban [Eliquis -] 5 mg PO BID tablet 04/29/17 Metoprolol Tartrate [Lopressor -] 12.5 mg PO BID tablet 04/29/17 Prednisone 10 mg PO ASDIR #50 tablet 04/29/17 Azithromycin [Zithromax 250mg Tablets -] 250 mg PO UTDICT #6 tab 05/08/18 predniSONE [Deltasone -] 60 mg PO DAILY #15 tablet 05/08/18 Azithromycin [Zithromax -] 250 mg PO UTDICT #6 tab 05/09/18 predniSONE [Deltasone -] 20 mg PO BID #10 tablet 05/09/18 Anemia: Yes Asthma: Yes (COPD, trach) Cancer: Yes (UTERINE) Cardiac Disorders: Yes (A-fib) CVA: No COPD: Yes CHF: No Dementia: No Diabetes: Yes GI Disorders: Yes (colitis, SB resection, GERD) Disorders: Yes (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) HTN: Yes Hypercholesterolemia: Yes Liver Disease: No Psychiatric Problems: Yes (ANXIETY) Seizures: Yes (5 yrs ago had a seizure ( zofran and reglan given together as per patient) Thyroid Disease: No - Surgical History Abdominal Surgery: Yes (BOWEL RESECTION) Appendectomy: Yes (removed 1998) Cardiac Surgery: No Cholecystectomy: No Lung Surgery: No Neurologic Surgery: No Orthopedic Surgery: Yes (Back Sx T7,6) - Immunization History Td Vaccination: Yes TDAP Vaccination: Yes Immunization Up to Date: Yes - Suicide/Smoking/Psychosocial Hx Smoking Status: No Smoking History: Former smoker Have you smoked in the past 12 months: No Number of Cigarettes Smoked Daily: 3 If you are a former smoker, when did you quit?: 2014 Information on smoking cessation initiated: No 'Breaking Loose' booklet given: 03/12/15 Hx Alcohol Use: No Drug/Substance Use Hx: No Substance Use Type: None Hx Substance Use Treatment: No Review of Systems - Review of Systems Able to Perform ROS?: Yes Constitutional: Yes: Malaise, Weakness. No: Chills, Fever, Unexplained wgt Loss HEENTM: Yes: Other (bleeding from trach site). No: Nose Congestion, Throat Pain Respiratory: Yes: Cough. No: Shortness of Breath Cardiac (ROS): Yes: Chest Pain (resolved). No: Edema, Palpitations ABD/GI: Yes: Constipated (resolved this morning), Nausea, Vomiting. No: Diarrhea : Yes: Frequency. No: Burning, Dysuria Musculoskeletal: Yes: Back Pain. No: Neck Pain Integumentary: No: Bruising, Rash Neurological: Yes: Weakness. No: Headache, Numbness, Tingling, Dizziness Endocrine: No: Unexplained Weight Gain, Unexplained Weight Loss *Physical Exam - Vital Signs Last Vital Signs Temp Pulse Resp BP Pulse Ox 99.1 F 121 H 22 148/97 94 L 06/27/18 20:07 06/27/18 20:07 06/27/18 20:07 06/27/18 20:07 06/27/18 20:07 - Physical Exam General Appearance: Yes: Nourished, Appropriately Dressed, Obese, Other (awake and alert and oriented adult female, pickwickian appearance, speaking with normal voice, answering questions appropriately, occasionally a bit tearful). No: Apparent Distress HEENT: positive: EOMI, AYESHA, Normal Voice, Hearing Grossly Normal, Other ( tracheostomy tube in place without stoma erythema, no active bleeding). negative: Scleral Icterus (R), Scleral Icterus (L), Nasal Congestion Neck: positive: Trachea midline, Supple. negative: Tender, Rigid Respiratory/Chest: positive: Lungs Clear, Normal Breath Sounds. negative: Respiratory Distress, Crackles, Rhonchi, Stridor, Wheezing Cardiovascular: positive: Regular Rhythm, Regular Rate. negative: Edema, JVD, Murmur Female Pelvic Exam: positive: normal external exam, other (zinc paste in place intertriginous areas) Gastrointestinal/Abdominal: positive: Normal Bowel Sounds, Soft, Protuberent, Distended, Other (lower abdominal oblique laparotomy scar). negative: Tender, Organomegaly, Pulsatile Mass, Guarding Rectal Exam: positive: other (normal external exam) Musculoskeletal: positive: Normal Inspection. negative: Decreased Range of Motion, Vertebral Tenderness Extremity: positive: Normal Capillary Refill, Normal Inspection, Normal Range of Motion. negative: Tender, Cyanosis Integumentary: positive: Normal Color, Dry, Warm, Other (some slight erythema to sacral area possible early sacral ulcers). negative: Erythema, Rash, Bruising Neurologic: positive: director of product design II-XII NML intact (grossly), Fully Oriented, Alert, Normal Mood/Affect, Normal Response, Motor Strength / ED Treatment Course - LABORATORY CBC & Chemistry Diagram: 06/27/18 22:30 06/27/18 22:30 - RADIOLOGY Radiology Studies Ordered: Category Date Time Status CHEST X-RAY PORTABLE* [RAD] Stat Radiology 06/27/18 20:33 Ordered Medical Decision Making - Medical Decision Making Pt presents with abdominal distention and discomfort, n/v, exacerbated chronic pain. Initial Vital Signs Temp Pulse Resp BP Pulse Ox 99.1 F 121 H 22 148/97 94 L 06/27/18 20:07 06/27/18 20:07 06/27/18 20:07 06/27/18 20:07 06/27/18 20:07 Exam: As noted in Physical Exam section. Abdomen distended DDX IBNLT: PNA, vaginitis, gastroenteritis, colitis or diverticulitis wwo rupture or abscess, SBO, neoplasm, medications, ERCP complication, ischemic colitis wwo perforation (embolism, bowel obstruction, inadequate systemic perfusion, medications, surgery-induced vascular compromise), etc. W/U ordered: CBCD CMP Mg Phos Lipase Troponin CK CKMB EKG CXR TX [facility] EKG: Reviewed; results as noted in ECG Review section. CXR: Possible LLL consolidation Laboratory Tests 06/27/18 06/27/18 06/27/18 22:30 22:30 22:30 WBC 13.1 H RBC 4.39 Hgb 11.7 Hct 36.3 MCV 82.6 MCH 26.7 MCHC 32.3 RDW 16.3 H Plt Count 384 D MPV 9.2 Absolute Neuts (auto) 10.9 Neutrophils % 83.8 H Neutrophils % (Manual) 80.0 Band Neutrophils % 3.0 Lymphocytes % 10.7 D Lymphocytes % (Manual) 10.0 Monocytes % 5.0 D Monocytes % (Manual) 7 Eosinophils % 0.1 Basophils % 0.4 Nucleated RBC % 0 Metamyelocytes 2 Hypochromia 1+ Platelet Estimate Adequate Platelet Comment No clumping noted Polychromasia 1+ Anisocytosis 1+ PT with INR 13.00 INR 1.15 H PTT (Actin FS) 30.0 Sodium 136 Potassium 4.5 Chloride 97 L Carbon Dioxide 30 Anion Gap 9 BUN 24 H Creatinine 0.8 Creat Clearance w eGFR > 60 Random Glucose 254 H Calcium 8.7 Phosphorus 3.6 Magnesium 2.0 Total Bilirubin 0.2 AST 30 ALT 55 Alkaline Phosphatase 131 H Creatine Kinase 71 Troponin I < 0.02 B-Natriuretic Peptide 40.76 Total Protein 6.9 Albumin 3.1 L Lipase 06/27/18 22:30 WBC RBC Hgb Hct MCV MCH MCHC RDW Plt Count MPV Absolute Neuts (auto) Neutrophils % Neutrophils % (Manual) Band Neutrophils % Lymphocytes % Lymphocytes % (Manual) Monocytes % Monocytes % (Manual) Eosinophils % Basophils % Nucleated RBC % Metamyelocytes Hypochromia Platelet Estimate Platelet Comment Polychromasia Anisocytosis PT with INR INR PTT (Actin FS) Sodium Potassium Chloride Carbon Dioxide Anion Gap BUN Creatinine Creat Clearance w eGFR Random Glucose Calcium Phosphorus Magnesium Total Bilirubin AST ALT Alkaline Phosphatase Creatine Kinase Troponin I B-Natriuretic Peptide Total Protein Albumin Lipase 373 06/28/18 00:19 Reassessment: Patient states still in pain, requests home meds, no PO Dilaudid in department. Morphine 4 mg ordered IV Push ADMIT The Pts symptoms persist despite ED treatments. The Pt is unsafe for discharge at this time. They require further hospital observation, workup, and treatment. Microblog sent to [facility] for admission. Vital Signs Temperature 98.7 F 06/27/18 23:25 Pulse Rate 89 06/27/18 23:25 Respiratory Rate 19 06/27/18 23:25 Blood Pressure 126/75 06/27/18 23:25 O2 Sat by Pulse Oximetry (%) 98 06/27/18 23:25 06/28/18 03:20 Patient's IV line infiltrated, re-placed in right AC with US guidance. Patient c/o increased pain; states takes 500 mg gabapentin at home nightly. Ordered is 300 mg gabapentin. Spoke with BLASTING HELPER Brie Guy, in agreement Pt to be admitted after CT abdomen/ pelvis results. A/P CT with IV contrast: Fatty liver, multiple incompletely visualized subacute left rib fractures with callus formation. Otherwise nothing acute. Decision to Admit order placed to [facility] covering attending Dr. Zazueta to Med/ Surg Obs. *DC/Admit/Observation/Transfer Diagnosis at time of Disposition: Chronic pain disorder Nausea and vomiting Qualifiers: Vomiting type: unspecified Vomiting Intractability: unspecified Qualified Code( s): R11.2 - Nausea with vomiting, unspecified Pneumonia Qualifiers: Pneumonia type: due to unspecified organism Laterality: unspecified laterality Lung location: unspecified part of lung Qualified Code(s): J18.9 - Pneumonia, unspecified organism - Discharge Dispostion Condition at time of disposition: Guarded Decision to Admit order: Yes - Referrals Referrals: Manolo Jaquez [Primary Care Provider] - - Patient Instructions - Post Discharge Activity
[2018-06-27] MEDS ORDERED: FAMOTIDINE 20 MG/50 ML IVPB 20 MG/50 ML MG IVPB ONE ×2 (20:45→21:00)
[2018-06-27] MEDS ORDERED: ACETAMINOPHEN INJECTION 100 ML IVPB ONE (21:00)
[2018-06-27] MEDS ORDERED: ONDANSETRON 4 MG/2 ML VIAL ONE (22:35)
[2018-06-27 22:59] LABS: BASO % 0.4 % (0-2.0); EOS % 0.1 % (0-4.5); HEMATOCRIT 36.3 % (32.4-45.2); HEMOGLOBIN 11.7 GM/dL (10.7-15.3); LYMPH % 10.7 % (8-40); MCH 26.7 pg (25.7-33.7); MCHC 32.3 g/dl (32.0-36.0); MEAN CELL VOLUME 82.6 fl (80-96); MEAN PLT VOLUME 9.2 fl (7.5-11.1); NEUT % 83.8 % (42.8-82.8); PLATELET COUNT 384 K/MM3 (134-434); RBC 4.39 M/mm3 (3.60-5.2); RDW 16.3 % (11.6-15.6); WHITE BLOOD COUNT 13.1 K/mm3 (4.0-10.0)
[2018-06-27 23:16] LABS: INR 1.15 (0.83-1.09)
[2018-06-27 23:24] LABS: ALBUMIN 3.1 g/dl (3.4-5.0); ANION GAP 9 (8-16); BILIRUBIN,TOTAL 0.2 mg/dL (0.2-1.0); BLOOD UREA NITROGEN 24 mg/dL (7-18); CALCIUM 8.7 mg/dL (8.5-10.1); CHLORIDE 97 mmol/L (98-107); CO2 30 mmol/L (21-32); CREATININE 0.8 mg/dL (0.55-1.02); GLUCOSE,RANDOM 254 mg/dL (74-106); PHOSPHOROUS 3.6 mg/dL (2.5-4.9); POTASSIUM 4.5 mmol/L (3.5-5.1); SGOT/AST 30 U/L (15-37); SGPT/ALT 55 U/L (12-78); SODIUM 136 mmol/L (136-145); TOT PROT 6.9 g/dl (6.4-8.2)
[2018-06-27 23:27] LABS: ALK PHOS 131 U/L (45-117); N-TERMINAL BNP 40.76 pg/ml (5-125)
[2018-06-27 23:44] LABS: ANISOCYTOSIS 1+; PLATELET ESTIMATE ADEQUATE
--- NOTE | 2018-06-28 00:03 | PDOC ---
Attending Attestation - HPI HPI: 06/28/18 00:17 The patient is a 52-year-old female with a past medical history of COPD, with home oxygen use, intubation, tracheostomy, morbid obesity, hypertension, hypercholesterolemia, paroxysmal atrial fibrillation (on eliquis), Kidney stents removed by Dr. 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 2014, and diabetes mellitus presents to the emergency department with multiple complains thats been progressing for the past 1 month. The patient reports increased bleeding from her tracheostomy site, states she had to suction the site a lot. The patient states she was initially on size 9 tube, that was changed to size 8 about a month ago. Patient states she was supposed to be switched to size 7 but secondary to back order shes still on size 8. The patient reports additional complaints of a productive cough with yellow colored sputum, nausea with multiple episodes of nonbilious-bloody emesis, abdominal distention with discomfort, and urinary frequency. Allergies: oxycodone, aspirin, fentanyl and Blueberry. PCP: Dr. Manolo Jaquez. Pulmonary: Dr. Santiago, pulmonary Surgical history: appendectomy (1998), Back Sx T7, 6 and Bowel resection. - Physicial Exam PE: 06/28/18 02:28 GENERAL: (+) Flushed face. Afebril. Awake, alert, and fully oriented, in no acute distress HEAD: No signs of trauma EYES: PERRLA, EOMI, sclera anicteric, conjunctiva clear ENT: Auricles normal inspection, hearing grossly normal, nares patent, oropharynx clear without exudates. Moist mucosa NECK: (+) Trach collar in place. Normal ROM. Supple. No lymphadenopathy, JVD, or masses LUNGS: Breath sounds equal, clear to auscultation bilaterally. No wheezes, and no crackles HEART: Regular rate and rhythm, normal S1 and S2, no murmurs, rubs or gallops ABDOMEN: Soft, distended. LLQ tenderness. No flank pain. Chronic back pain. Normoactive bowel sounds. No guarding, no rebound. No masses. EXTREMITIES: Normal range of motion, no edema. No clubbing or cyanosis. No cords, erythema, or tenderness NEUROLOGICAL: Cranial nerves II through XII grossly intact. SKIN: Warm, Dry, normal turgor, no rashes or lesions noted. - Medical Decision Making 06/28/18 00:17 Documentation prepared by Yesenia Ruelas, acting as biomedical photographer for Kathi Spencer MD. <Yesenia Ruelas - Last Filed: 06/28/18 04:34> - Resident Resident Name: Anais Foreman - ED Attending Attestation I have performed the following: I have examined & evaluated the patient, The case was reviewed & discussed with the resident, I agree w/resident's findings & plan - Medical Decision Making 06/28/18 03:57 Patient Name: JASWINDER CORTES THIS IS A PRELIMINARY REPORT FROM [facility] DATE OF SERVICE: 2018-06-28 03:14:14 IMAGES: 200 EXAM: ABDOMEN \T\ PELVIS CT WITH CONTR HISTORY: Abdominal pain COMPARISON: None. FINDINGS: Lung bases are clear. The visualized cardiac chambers are normal size and configuration. Liver is fatty. Normal gallbladder, pancreas, spleen, adrenal glands and kidneys. The stomach and abdominal small and large bowel are normal. There is no aortic aneurysm. There is no significant retroperitoneal lymphadenopathy. Subacute left rib fractures are noted with callus formation, incompletely visualized. No definite acute fractures. Status post thoracic fusion. The pelvic small and large bowel are normal. Status post appendectomy and hysterectomy. Urinary bladder is unremarkable. There is no pelvic free fluid. No discrete pelvic lymphadenopathy is identified. Multiple bilateral calcified gluteal injection granulomas are noted. There are multiple old fracture lumbar compression fractures IMPRESSION: Fatty liver. Multiple incompletely visualized subacute left rib fractures with callus formation Individualized dose optimization techniques were used for this CT. THIS DOCUMENT HAS BEEN ELECTRONICALLY SIGNED 06/28/18 07:06 Pt is being admitted for abd pain and SOB and tachycardia <Kathi Spencer - Last Filed: 06/28/18 07:07>
[2018-06-28] MEDS ORDERED: oxyCODONE HCL 10 MG SUSTAINED ACTING TABLET PO ONE (00:57)
[2018-06-28] MEDS ORDERED: ONDANSETRON 4 MG/2 ML VIAL IVPUSH ONE (00:57)
[2018-06-28] MEDS ORDERED: SODIUM CHLORIDE 0.9% 500 ML INFUS.BAG IV ONE (00:58)
[2018-06-28] MEDS ORDERED: morphine CARPU-JECT 4 MG/1 ML DISP.SYRIN IVPUSH ONE (01:01)
[2018-06-28] MEDS ORDERED: MORPHINE SULFATE 2 MG/ML VIAL ONE (01:05)
[2018-06-28] MEDS ORDERED: GABAPENTIN 300 MG CAPSULE (FP) PO ONE (03:18)
[2018-06-28] MEDS ORDERED: METOCLOPRAMIDE HCL INJECTION 10 MG/2 ML VIAL IVPUSH ONE (03:50)
[2018-06-28] MEDS ORDERED: METOCLOPRAMIDE HCL INJECTION 10 MG/2 ML VIAL ONE (04:06)
[2018-06-28] MEDS ORDERED: GABAPENTIN 100 MG CAPSULE (FP) ONE (04:06)
--- NOTE | 2018-06-28 04:35 | HP ---
Admitting History and Physical - Primary Care Physician PCP: Manolo Jaquez - Admission Chief Complaint: vomiting, upper lumbar, b/l leg pain, generalized weakness, productive cough History of Present Illness: This is a 52 y/o woman with a significant medical history of COPD (O2 dependent) , Intubation, Tracheostomy, Severe Obesity, HTN, HLD, Paroxysmal Afib (on Eliquis), DM, Chronic Back Pain. Uterine Ca( Hystertectomy), GI Bleed. Who presents to the ED via ambulance for nonbilious non bloody vomiting, abdominal pain x 2 days, productive cough-yellow phlegm, upper back, bilateral leg pain, bleeding at tracheostomy site x 1 month. Patient denies fever, chills, SOB, CP, diarrhea, constipation, dysuria History Source: Patient, Medical Record Limitations to Obtaining History: No Limitations - Past Medical History Cardiovascular: Yes: AFIB (Paroxysmal), HTN, Hyperlipdemia Pulmonary: Yes: Asthma, COPD, O2 Dependent Gastrointestinal: Yes: GI Bleed Renal/: Yes: Cancer (Uterine), Other ([place] in the past) Heme/Onc: Yes: Other (uterine cancer) Infectious Disease: Yes: C-Diff (june 2014), Other (Osteomyelitis of thoracic spine) Psych: Yes: Anxiety, Bipolar, Depression Musculoskeletal: Yes: Chronic low back pain Endocrine: Yes: Diabetes Mellitus - Past Surgical History Past Surgical History: Yes: Appendectomy, Hysterectomy (with BSO), Stent Additional Past Surgical History: Tracheostomy Bowel Resection Lumbar - Smoking History Smoking history: Former smoker Have you smoked in the past 12 months: No Aproximately how many cigarettes per day: 3 If you are a former smoker, when did you quit?: 2015 - Alcohol/Substance Use Hx Alcohol Use: No - Social History Usual Living Arrangement: Yes: Alone 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) History of Recent Travel: No Home Medications - Allergies Allergies/Adverse Reactions: Allergies Allergy/AdvReac Type Severity Reaction Status Date / Time oxycodone [Oxycodone] Allergy Severe Nausea Verified 05/18/18 16:29 oxycodone HCl [From Percocet] Allergy Severe Nausea Verified 05/18/18 16:29 aspirin Allergy Mild Verified 05/18/18 16:29 blueberry [Blueberry] Allergy Mild Swelling Verified 05/18/18 16:29 fentanyl Allergy Verified 05/18/18 16:29 - Home Medications Home Medications: Ambulatory Orders Levothyroxine [Synthroid -] 25 mcg PO DAILY@0700 tablet 06/05/16 Albuterol 2.5/Ipratropium 0.5 [Duoneb -] 1 amp NEB Q4HPO amp 09/17/16 Budesonide/Formeterol Fumarate [SYMBICORT 160/4.5mcg -] 2 inh PO BID 11/01/16 Lactobacillus Acidophilus [Bacid -] 1 tab PO BID tab 11/20/16 Ondansetron [Zofran -] 4 mg PO Q4H PRN #0 tablet 11/20/16 Zinc Oxide 1 applic TP BID tube 11/20/16 Cholecalciferol (Vitamin D3) [Vitamin D3 -] 2,000 unit PO DAILY #30 tab Albuterol Sulfate Inhaler - [Ventolin HFA Inhaler -] 2 puff IH Q4H PRN #0 inhaler 11/29/16 Omeprazole Magnesium [Prilosec] 20 mg PO BID 03/21/17 Acetaminophen [Tylenol .Regular Strength -] 650 mg PO Q6H PRN #0 tablet Alprazolam [Xanax] 0.25 mg PO BID tablet MDD 2 03/27/17 Diltiazem Cd [Cardizem Cd -] 360 mg PO DAILY #30 tab 03/27/17 Insulin (Levemir) [Levemir Vial] 5 units SQ BID@0700,2200 #5 unit 03/27/17 Insulin Sliding Scale [Novolog Vial Sliding Scale -] 1 vial SQ ACHS units 03/27 Lipase/Protease/Amylase [Creon Dr 6,000 Units Capsule] 3 cap PO TIDCM #90 cap Nystatin Powder [Nystop Powder -] 1 applic TP DAILY applic 03/27/17 Roflumilast [Daliresp -] 500 mcg PO DAILY tablet 03/27/17 oxyCODONE SR [Oxycontin] 10 mg PO BID #60 tab MDD 20mg 03/27/17 Cyproheptadine [Periactin -] 4 mg PO Q8H 04/23/17 Loperamide HCl [Imodium A-D] 1 tab PO Q4H PRN 04/23/17 Ranitidine HCl [Zantac] 150 mg PO HS 04/23/17 Simethicone 80 mg PO TID 04/23/17 Albuterol 2.5/Ipratropium 0.5 [Duoneb -] 1 amp NEB Q4HPO amp 04/29/17 Apixaban [Eliquis -] 5 mg PO BID tablet 04/29/17 Metoprolol Tartrate [Lopressor -] 12.5 mg PO BID tablet 04/29/17 Prednisone 10 mg PO ASDIR #50 tablet 04/29/17 Azithromycin [Zithromax 250mg Tablets -] 250 mg PO UTDICT #6 tab 05/08/18 predniSONE [Deltasone -] 60 mg PO DAILY #15 tablet 05/08/18 Azithromycin [Zithromax -] 250 mg PO UTDICT #6 tab 05/09/18 predniSONE [Deltasone -] 20 mg PO BID #10 tablet 05/09/18 Family Disease History - Family Disease History Family Disease History: Diabetes: Mother (heart surgery), Heart Disease: Mother , CA: Father (leukemia) Review of Systems - Review of Systems Constitutional: reports: Weakness Eyes: reports: No Symptoms HENT: reports: No Symptoms Neck: reports: Other (bleeding around trach) Cardiovascular: reports: No Symptoms Respiratory: reports: Cough Gastrointestinal: reports: Abdominal Pain, Bloating, Vomiting. denies: Vomiting Blood Genitourinary: reports: No Symptoms Breasts: reports: No Symptoms Reported Musculoskeletal: reports: Back Pain, Extremity Pain (B/L) Integumentary: reports: Rash (perineum) Neurological: reports: No Symptoms Endocrine: reports: No Symptoms Hematology/Lymphatic: reports: No Symptoms Psychiatric: reports: No Symptoms Physical Examination Vital Signs: Vital Signs Temperature 98.7 F 06/27/18 23:25 Pulse Rate 89 06/27/18 23:25 Respiratory Rate 19 06/27/18 23:25 Blood Pressure 126/75 06/27/18 23:25 O2 Sat by Pulse Oximetry (%) 98 06/27/18 23:25 Constitutional: Yes: No Distress, Calm, Obese Eyes: Yes: WNL, Conjunctiva Clear, EOM Intact, PERRL HENT: Yes: Atraumatic, Normocephalic Neck: Yes: Other (trach with collar) Cardiovascular: Yes: Regular Rate and Rhythm, S1, S2 Respiratory: Yes: Rhonchi, Other (trach with collar) Gastrointestinal: Yes: Normal Bowel Sounds, Soft, Distention. No: Tenderness, Tenderness, Epigastrium, Tenderness, Rebound, Vomiting Renal/: Yes: WNL Breast(s): Yes: WNL Musculoskeletal: Yes: Back Pain Extremities: Yes: WNL Edema: No Peripheral Pulses WNL: Yes Neurological: Yes: WNL, Alert, Oriented, Cran Nerves II-XII Intact ...Motor Strength: WNL Psychiatric: Yes: WNL, Alert, Oriented Labs: CBC, BMP 06/27/18 22:30 06/27/18 22:30 Laboratory Results - last 24 hr 06/27/18 06/27/18 06/27/18 22:30 22:30 22:30 WBC 13.1 H RBC 4.39 Hgb 11.7 Hct 36.3 MCV 82.6 MCH 26.7 MCHC 32.3 RDW 16.3 H Plt Count 384 D MPV 9.2 Absolute Neuts (auto) 10.9 Neutrophils % 83.8 H Neutrophils % (Manual) 80.0 Band Neutrophils % 3.0 Lymphocytes % 10.7 D Lymphocytes % (Manual) 10.0 Monocytes % 5.0 D Monocytes % (Manual) 7 Eosinophils % 0.1 Basophils % 0.4 Nucleated RBC % 0 Metamyelocytes 2 Hypochromia 1+ Platelet Estimate Adequate Platelet Comment No clumping noted Polychromasia 1+ Anisocytosis 1+ PT with INR 13.00 INR 1.15 H PTT (Actin FS) 30.0 Sodium 136 Potassium 4.5 Chloride 97 L Carbon Dioxide 30 Anion Gap 9 BUN 24 H Creatinine 0.8 Creat Clearance w eGFR > 60 Random Glucose 254 H Calcium 8.7 Phosphorus 3.6 Magnesium 2.0 Total Bilirubin 0.2 AST 30 ALT 55 Alkaline Phosphatase 131 H Creatine Kinase 71 Troponin I < 0.02 B-Natriuretic Peptide 40.76 Total Protein 6.9 Albumin 3.1 L Lipase Blood Type Antibody Screen 06/27/18 06/27/18 22:30 22:30 WBC RBC Hgb Hct MCV MCH MCHC RDW Plt Count MPV Absolute Neuts (auto) Neutrophils % Neutrophils % (Manual) Band Neutrophils % Lymphocytes % Lymphocytes % (Manual) Monocytes % Monocytes % (Manual) Eosinophils % Basophils % Nucleated RBC % Metamyelocytes Hypochromia Platelet Estimate Platelet Comment Polychromasia Anisocytosis PT with INR INR PTT (Actin FS) Sodium Potassium Chloride Carbon Dioxide Anion Gap BUN Creatinine Creat Clearance w eGFR Random Glucose Calcium Phosphorus Magnesium Total Bilirubin AST ALT Alkaline Phosphatase Creatine Kinase Troponin I B-Natriuretic Peptide Total Protein Albumin Lipase 373 Blood Type A POSITIVE Antibody Screen Negative Intake & Output 06/25/18 06/26/18 06/27/18 06/28/18 23:59 23:59 23:59 23:59 Weight 72.575 kg Imaging - Results Chest X-ray: Image Reviewed Cat Scan: Image Reviewed EKG: Image Reviewed Problem List - Problems (1) Pneumonia Code(s): J18.9 - PNEUMONIA, UNSPECIFIED ORGANISM Qualifiers: Pneumonia type: due to unspecified organism Laterality: unspecified laterality Lung location: unspecified part of lung Qualified Code(s): J18.9 - Pneumonia, unspecified organism (2) COPD (chronic obstructive pulmonary disease) Code(s): J44.9 - CHRONIC OBSTRUCTIVE PULMONARY DISEASE, UNSPECIFIED Qualifiers: COPD type: unspecified COPD Qualified Code(s): J44.9 - Chronic obstructive pulmonary disease, unspecified (3) Acute and chronic respiratory failure Code(s): J96.20 - ACUTE AND CHR RESP FAILURE, UNSP W HYPOXIA OR HYPERCAPNIA Qualifiers: Respiratory failure complication: hypoxia Qualified Code(s): J96.21 - Acute and chronic respiratory failure with hypoxia (4) Nausea and vomiting Code(s): R11.2 - NAUSEA WITH VOMITING, UNSPECIFIED Qualifiers: Vomiting type: unspecified Vomiting Intractability: unspecified Qualified Code(s): R11.2 - Nausea with vomiting, unspecified (5) Gastritis Code(s): K29.70 - GASTRITIS, UNSPECIFIED, WITHOUT BLEEDING Qualifiers: Gastritis type: unspecified gastritis Chronicity: unspecified Gastritis bleeding: without bleeding Qualified Code(s): K29.70 - Gastritis, unspecified , without bleeding (6) GERD (gastroesophageal reflux disease) Code(s): K21.9 - GASTRO-ESOPHAGEAL REFLUX DISEASE WITHOUT ESOPHAGITIS (7) Chronic pain disorder Code(s): G89.4 - CHRONIC PAIN SYNDROME (8) Chronic back pain Code(s): M54.9 - DORSALGIA, UNSPECIFIED; G89.29 - OTHER CHRONIC PAIN (9) Anxiety Code(s): F41.9 - ANXIETY DISORDER, UNSPECIFIED (10) Depression with anxiety Code(s): F41.8 - OTHER SPECIFIED ANXIETY DISORDERS (11) Diabetes mellitus Code(s): E11.9 - TYPE 2 DIABETES MELLITUS WITHOUT COMPLICATIONS Qualifiers: Diabetes mellitus type: type 2 (12) HTN (hypertension) Code(s): I10 - ESSENTIAL (PRIMARY) HYPERTENSION Qualifiers: Hypertension type: essential hypertension Qualified Code(s): I10 - Essential (primary) hypertension (13) Hyperlipidemia Code(s): E78.5 - HYPERLIPIDEMIA, UNSPECIFIED Qualifiers: Hyperlipidemia type: pure hypercholesterolemia Qualified Code(s): E78.00 - Pure hypercholesterolemia, unspecified (14) Drug abuse and dependence Code(s): F19.20 - OTHER PSYCHOACTIVE SUBSTANCE DEPENDENCE, UNCOMPLICATED (15) Intractable pain Code(s): R52 - PAIN, UNSPECIFIED (16) Paroxysmal atrial fibrillation Code(s): I48.0 - PAROXYSMAL ATRIAL FIBRILLATION (17) Neuropathy Code(s): G62.9 - POLYNEUROPATHY, UNSPECIFIED (18) Opioid dependence Code(s): F11.20 - OPIOID DEPENDENCE, UNCOMPLICATED Qualifiers: Substance use status: uncomplicated Qualified Code(s): F11.20 - Opioid dependence, uncomplicated Assessment/Plan This is a 52 y/o woman Admitted for Pneumonia, Intractable Vomiting, Intractable Lumbar Pain for further evaluation of their emergent condition. Plan: 1. Pulm Hypoxemia in the setting of Acute COPD Exacerbation - Spo2 94%, now 98% Trach w/collar - On exam scattered coarse rhonchi - Appreciate Pulmonary consult - Solumederol given in ED, will continue with taper - Duonebs, Symbicort and Asmanex - Monitor vitals - Monitor CBC, BMP 2. ID - Pneumonia - last admission 04/2018 - Will treat for HCAP - Levaquin - Appreciate ID consult - Blood Cultures- pending - Chest Xray- ?patchy infiltrates RML - WBC 13.1 with L- shift - Lactic acid- am - Repeat CBC, BMP 3. Cardiology Paroxysmal Afib - Continue Cardizem, Metoprolol, Eliquis - EKG- Sinus Tachycardia 4. Endocrine Diabetes Mellitus- Chronic - BGMs - ISS 5. GI Gastritis Abdominal Pain - CTAP- no acute abdominal process - Zofran prn - Consider GI if condition worsens 6. Musculoskeletal Chronic Back Pain - Given Morphine in ED - Concern for Respiratory Depression with use of Opioids - Appreciate Pain Management consult - Trial Oxycontin prn 7. Psych Bipolar/Anxiety/Depression - Continue home meds FEN - NS@42cc/hr - Replete lytes prn - Clear Diet advance as tolerated DVT ppx GI ppx - OOB - SCDs - Continue Eliquis - Zantac Code Status: Full Code Dispo: Requires Inpatient Care Visit type - Emergency Visit Emergency Visit: Yes Care time: The patient presented to the Emergency Department on the above date and was hospitalized for further evaluation of their emergent condition. - New Patient This patient is new to me today: Yes Date on this admission: 06/28/18 - Critical Care Critical Care patient: No Hospitalist Screening - Colonoscopy Questionnaire Colonoscopy Questionnaire: Colonoscopy Questionnaire - Patient: 50 - 75 years old and never had a screening colonoscopy: Unknown History of colon or rectal polyps, or CA: Unknown History of IBD, Crohn's disease or UC: Unknown History of abdominal radiation therapy as a child: Unknown - Relative: 1 with colon or rectal CA, or polyps at age 60 or younger: Unknown Colon or rectal CA diagnosed at age 45 or younger: Unknown Multiple relatives with colon or rectal CA: Unknown - Outcome: Screening Result: Negative Screen
[2018-06-28] MEDS ORDERED: LEVOTHYROXINE NA 25 MCG TABLET (FP) PO SCH (07:00)
[2018-06-28] MEDS ORDERED: ONDANSETRON 4 MG/2 ML VIAL IVPUSH PRN (07:52)
[2018-06-28 08:06] LABS: BASO % 0.6 % (0-2.0); EOS % 0.8 % (0-4.5); HEMATOCRIT 31.8 % (32.4-45.2); HEMOGLOBIN 10.4 GM/dL (10.7-15.3); LYMPH % 15.4 % (8-40); MCH 27.1 pg (25.7-33.7); MCHC 32.8 g/dl (32.0-36.0); MEAN CELL VOLUME 82.6 fl (80-96); MEAN PLT VOLUME 8.7 fl (7.5-11.1); MONO % 7.1 % (3.8-10.2); NEUT % 76.1 % (42.8-82.8); PLATELET COUNT 311 K/MM3 (134-434); RBC 3.85 M/mm3 (3.60-5.2); RDW 16.2 % (11.6-15.6); WHITE BLOOD COUNT 10.8 K/mm3 (4.0-10.0)
[2018-06-28 08:47] LABS: ANION GAP 6 (8-16); BLOOD UREA NITROGEN 24 mg/dL (7-18); CALCIUM 7.7 mg/dL (8.5-10.1); CHLORIDE 104 mmol/L (98-107); CO2 30 mmol/L (21-32); CREATININE 0.8 mg/dL (0.55-1.02); GLUCOSE,RANDOM 203 mg/dL (74-106); MAGNESIUM 1.9 mg/dL (1.8-2.4); PHOSPHOROUS 3.1 mg/dL (2.5-4.9); POTASSIUM 3.8 mmol/L (3.5-5.1); SODIUM 140 mmol/L (136-145)
[2018-06-28] MEDS ORDERED: LACTOBACILLUS ACIDOPHILUS 1 TABLET PO SCH (10:00)
[2018-06-28] MEDS ORDERED: BUDESONIDE/FORMETEROL FUMARATE 160/4.5 mcg INHALER IH SCH (10:00)
[2018-06-28] MEDS ORDERED: NYSTATIN POWDER 100,000 UNITS/GM - 15 GM TOPICAL POWDER TP SCH (10:00)
[2018-06-28] MEDS ORDERED: oxyCODONE HCL 20 MG SUSTAINED ACTING TABLET PO SCH (10:00)
[2018-06-28] MEDS ORDERED: APIXABAN 5 MG TABLET PO SCH (10:00)
[2018-06-28] MEDS ORDERED: ROFLUMILAST 500 MCG TABLET PO SCH (10:00)
[2018-06-28] MEDS ORDERED: METOPROLOL TARTRATE 25 MG TABLET (FP) PO SCH (10:00)
--- NOTE | 2018-06-28 11:43 | EKG ---
Test Reason : Blood Pressure : / mmHG Vent. Rate : 116 BPM Atrial Rate : 116 BPM P-R Int : 128 ms QRS Dur : 070 ms QT Int : 308 ms P-R-T Axes : 037 008 050 degrees QTc Int : 428 ms SINUS TACHYCARDIA OTHERWISE NORMAL ECG WHEN COMPARED WITH ECG OF 08-MAY-2018 16:55, NO SIGNIFICANT CHANGE WAS FOUND Confirmed by SERA RENTERIA MD ([id number]) on 06/28/2018 11:42:45 AM Referred By: Confirmed By:SERA RENTERIA MD
[2018-06-28] MEDS ORDERED: METOPROLOL TARTRATE 25 MG TABLET (FP) ONE (13:07)
--- NOTE | 2018-06-28 13:07 | PN ---
Progress Note (short form) - Note Progress Note: ID consult dictated imp/reccd abdominal pain of unclear etiology accompinied by vomiting- now resolved urinary frequency without dysuria no fevers hold antibiotics wbc today is normal cxray no infiltrate abd/pelvis ct no acute process if ua is positive can treat with ertapenem (last urine culture kleb +esbl) other holt would observe off antibiotics i Problem List - Problems (1) Abdominal pain Code(s): R10.9 - UNSPECIFIED ABDOMINAL PAIN (2) Urinary frequency Code(s): R35.0 - FREQUENCY OF MICTURITION
[2018-06-28 13:27] LABS: URINE APPEARANCE CLEAR; URINE BILIRUBIN NEGATIVE (<2.0 mg/dL); URINE COLOR LTYELLOW; URINE GLUCOSE (UA) 1+ (NEGATIVE); URINE KETONE NEGATIVE (NEGATIVE); URINE LEUK ESTERASE NEGATIVE (NEGATIVE); URINE NITRITE NEGATIVE (NEGATIVE); URINE UROBILINOGEN NEGATIVE mg/dL (0.2-1.0)
[2018-06-28 13:29] LABS: URINE PROTEIN 2+ (NEGATIVE)
[2018-06-28 13:44] LABS: URINE MUCUS RARE
[2018-06-28 13:49] LABS: COCAINE, UR NEGATIVE ng/ml (CUTOFF=300); PHENCYCLIDINE,URINE NEGATIVE ng/ml (CUTOFF=25); URINE AMPHETAMINES NEGATIVE ng/ml (CUTOFF=500)
[2018-06-28 14:02] LABS: METHADONE, UR NEGATIVE ng/ml (CUTOFF=300); URINE BARBITURATES NEGATIVE ng/ml (CUTOFF=200)
[2018-06-28 14:04] LABS: OPIATES, URI POSITIVE ng/ml (CUTOFF=300); URINE BENZODIAZEPINES POSITIVE ng/ml (CUTOFF=200)
--- NOTE | 2018-06-28 14:10 | PN ---
Progress Note, Physician Chief Complaint: ABDOMINAL PAIN, NAUSEA VOMITING History of Present Illness: NAD in bed mother at bedside Pt seems anxious, has a lot of complaints Saw PCP 1 week ago - Current Medication List Current Medications: Active Medications Apixaban (Eliquis -) 5 mg PO BID [facility] Last Admin: 06/28/18 13:05 Dose: 5 mg Budesonide/Formoterol Fumarate (Symbicort 160/4.5mcg -) 2 puff IH BID [facility] Diltiazem HCl (Cardizem Cd -) 360 mg PO DAILY [facility] Last Admin: 06/28/18 13:05 Dose: 360 mg Insulin Aspart (Novolog Vial Sliding Scale -) 1 vial SQ ACHS [facility]; Protocol Lactobacillus Acidophilus (Bacid -) 1 tab PO BID [facility] Levothyroxine Sodium (Synthroid -) 25 mcg PO DAILY@0700 [facility] Metoprolol Tartrate (Lopressor -) 12.5 mg PO BID [facility] Last Admin: 06/28/18 13:11 Dose: 12.5 mg Nystatin (Nystop Powder -) 1 applic TP DAILY [facility] Ondansetron HCl (Zofran Injection) 4 mg IVPUSH Q6H PRN PRN Reason: NAUSEA AND/OR VOMITING Oxycodone HCl (Oxycontin -) 20 mg PO BID [facility] Last Admin: 06/28/18 13:06 Dose: 20 mg Ranitidine HCl (Zantac -) 150 mg PO HS [facility] Roflumilast (Daliresp -) 500 mcg PO DAILY [facility] - Objective Vital Signs: Vital Signs Temperature 98.7 F 06/27/18 23:25 Pulse Rate 89 06/27/18 23:25 Respiratory Rate 19 06/27/18 23:25 Blood Pressure 126/75 06/27/18 23:25 O2 Sat by Pulse Oximetry (%) 98 06/27/18 23:25 Constitutional: Yes: Well Nourished, No Distress, Anxious Cardiovascular: Yes: Regular Rate and Rhythm Respiratory: Yes: Regular, Rhonchi (diffuse) Gastrointestinal: Yes: Normal Bowel Sounds, Soft Musculoskeletal: Yes: WNL Extremities: Yes: WNL Edema: No Peripheral Pulses WNL: Yes Neurological: Yes: Alert, Oriented Psychiatric: Yes: Alert, Oriented Labs: CBC, BMP 06/28/18 07:40 06/28/18 07:40 INR, PTT INR 1.15 (0.83-1.09) H 06/27/18 22:30 Problem List - Problems (1) Acute bronchitis Assessment/Plan: -d/c home on tapering dose of prednisone -PO azithromycin, prescribed by pulmonary -f/u with PCP Code(s): J20.9 - ACUTE BRONCHITIS, UNSPECIFIED (2) Nausea and vomiting Assessment/Plan: likely viral CT abd pelvis negative UA negative CXR unremarkable Code(s): R11.2 - NAUSEA WITH VOMITING, UNSPECIFIED Qualifiers: Vomiting type: unspecified Vomiting Intractability: unspecified Qualified Code(s): R11.2 - Nausea with vomiting, unspecified Assessment/Plan see problem list
[2018-06-28] MEDS: INSULIN SLIDING SCALE (NOVOLOG) 1 VIAL SQ SCH ×2 (14:31→17:15)
[2018-06-28] MEDS ORDERED: LEVOTHYROXINE NA 25 MCG TABLET (FP) ONE (14:32)
--- NOTE | 2018-06-28 14:39 | CON.PULM ---
Consult Consult Specialty:: PULMONARY Referred by:: Dr. Goel Reason for Consultation:: shortness of breath - History of Present Illness Chief Complaint: nausea/vomiting History of Present Illness: 52yo female with h/o HTN, DM, hyperlipidemia, chronic hypoxic respiratory failure on home O2, COPD, paroxysmal atrial fibrillation on anticoagulation, morbid obesity s/p tracheostomy who was admitted with nausea and vomiting. Also reports cough productive of yellow sputum with some dyspnea and wheezing. No fevers but with chills. Has been doing otherwise well since her tracheostomy. She is maintained on prednisone 17.5mg daily at home. - History Source History Provided By: Patient, Medical Record Limitations to Obtaining History: No Limitations - Past Medical History Cardio/Vascular: Yes: AFIB (Paroxysmal), HTN, Hyperlipdemia Pulmonary: Yes: Asthma, COPD, O2 Dependent Gastrointestinal: Yes: GI Bleed Renal/: Yes: Cancer (Uterine), Other ([place] in the past) Infectious Disease: Yes: C-Diff (june 2014), Other (Osteomyelitis of thoracic spine) Psych: Yes: Anxiety, Bipolar, Depression Musculoskeletal: Yes: Chronic low back pain Endocrine: Yes: Diabetes Mellitus Additional Medical History: Frequent c/o abdominal pain-extensive w/u in the past negative. Presumed adhesions from prior surgeries. - Past Surgical History Past Surgical History: Yes: Appendectomy, Hysterectomy (with BSO), Stent - Alcohol/Substance Use Hx Alcohol Use: No - Smoking History Smoking history: Former smoker Have you smoked in the past 12 months: No Aproximately how many cigarettes per day: 3 If you are a former smoker, when did you quit?: 2014 - Social History Usual Living Arrangement: [facility] 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) History of Recent Travel: No Home Medications - Allergies Allergies/Adverse Reactions: Allergies Allergy/AdvReac Type Severity Reaction Status Date / Time oxycodone [Oxycodone] Allergy Severe Nausea Verified 05/18/18 16:29 oxycodone HCl [From Percocet] Allergy Severe Nausea Verified 05/18/18 16:29 aspirin Allergy Mild Verified 05/18/18 16:29 blueberry [Blueberry] Allergy Mild Swelling Verified 05/18/18 16:29 fentanyl Allergy Verified 05/18/18 16:29 - Home Medications Home Medications: Ambulatory Orders Levothyroxine [Synthroid -] 25 mcg PO DAILY@0700 tablet 06/05/16 Albuterol 2.5/Ipratropium 0.5 [Duoneb -] 1 amp NEB Q4HPO amp 09/17/16 Budesonide/Formeterol Fumarate [SYMBICORT 160/4.5mcg -] 2 inh PO BID 11/01/16 Lactobacillus Acidophilus [Bacid -] 1 tab PO BID tab 11/20/16 Ondansetron [Zofran -] 4 mg PO Q4H PRN #0 tablet 11/20/16 Zinc Oxide 1 applic TP BID tube 11/20/16 Cholecalciferol (Vitamin D3) [Vitamin D3 -] 2,000 unit PO DAILY #30 tab Albuterol Sulfate Inhaler - [Ventolin HFA Inhaler -] 2 puff IH Q4H PRN #0 inhaler 11/29/16 Omeprazole Magnesium [Prilosec] 20 mg PO BID 03/21/17 Acetaminophen [Tylenol .Regular Strength -] 650 mg PO Q6H PRN #0 tablet Alprazolam [Xanax] 0.25 mg PO BID tablet MDD 2 03/27/17 Diltiazem Cd [Cardizem Cd -] 360 mg PO DAILY #30 tab 03/27/17 Insulin (Levemir) [Levemir Vial] 5 units SQ BID@0700,2200 #5 unit 03/27/17 Insulin Sliding Scale [Novolog Vial Sliding Scale -] 1 vial SQ ACHS units 03/27 Lipase/Protease/Amylase [Eamon Dr 6,000 Units Capsule] 3 cap PO TIDCM #90 cap Nystatin Powder [Nystop Powder -] 1 applic TP DAILY applic 03/27/17 Roflumilast [Daliresp -] 500 mcg PO DAILY tablet 03/27/17 oxyCODONE SR [Oxycontin] 10 mg PO BID #60 tab MDD 20mg 03/27/17 Cyproheptadine [Periactin -] 4 mg PO Q8H 04/23/17 Loperamide HCl [Imodium A-D] 1 tab PO Q4H PRN 04/23/17 Ranitidine HCl [Zantac] 150 mg PO HS 04/23/17 Simethicone 80 mg PO TID 04/23/17 Albuterol 2.5/Ipratropium 0.5 [Duoneb -] 1 amp NEB Q4HPO amp 04/29/17 Apixaban [Eliquis -] 5 mg PO BID tablet 04/29/17 Metoprolol Tartrate [Lopressor -] 12.5 mg PO BID tablet 04/29/17 Prednisone 10 mg PO ASDIR #50 tablet 04/29/17 Azithromycin [Zithromax 250mg Tablets -] 250 mg PO UTDICT #6 tab 05/08/18 predniSONE [Deltasone -] 60 mg PO DAILY #15 tablet 05/08/18 Azithromycin [Zithromax -] 250 mg PO UTDICT #6 tab 05/09/18 predniSONE [Deltasone -] 20 mg PO BID #10 tablet 05/09/18 Family Disease History - Family Disease History Family Disease History: Diabetes: Mother (heart surgery), Heart Disease: Mother , CA: Father (leukemia) Review of Systems - Review of Systems Constitutional: reports: Chills, Weakness. denies: Fever Eyes: denies: Recent Change in Vision HENT: denies: Nasal Congestion, Throat Pain Neck: denies: Stiffness, Tenderness Cardiovascular: reports: Shortness of Breath. denies: Chest Pain, Edema, Palpitations Respiratory: reports: Cough, Wheezing. denies: Hemoptysis Gastrointestinal: reports: Nausea, Vomiting. denies: Abdominal Pain Genitourinary: denies: Dysuria, Hematuria Neurological: denies: Dizziness, Headache Endocrine: denies: Unexplained Weight Loss Physical Exam Vital Sings: Vital Signs Temperature 98.7 F 06/27/18 23:25 Pulse Rate 89 06/27/18 23:25 Respiratory Rate 19 06/27/18 23:25 Blood Pressure 126/75 06/27/18 23:25 O2 Sat by Pulse Oximetry (%) 98 06/27/18 23:25 Constitutional: Yes: Anxious Eyes: Yes: Conjunctiva Clear, EOM Intact HENT: Yes: Atraumatic, Normocephalic Neck: Yes: Supple, Trachea Midline Cardiovascular: Yes: Regular Rate and Rhythm Respiratory: Yes: Wheezes (scattered) ...Clubbing: No Gastrointestinal: Yes: Normal Bowel Sounds, Soft. No: Tenderness Neurological: Yes: Alert, Oriented Labs: CBC, BMP 06/28/18 07:40 06/28/18 07:40 Imaging - Results Chest X-ray: Report Reviewed, Image Reviewed (no infiltrates) Problem List - Problems (1) Acute bronchitis Code(s): J20.9 - ACUTE BRONCHITIS, UNSPECIFIED (2) COPD exacerbation Code(s): J44.1 - CHRONIC OBSTRUCTIVE PULMONARY DISEASE W (ACUTE) EXACERBATION (3) Diabetes mellitus Code(s): E11.9 - TYPE 2 DIABETES MELLITUS WITHOUT COMPLICATIONS Qualifiers: Diabetes mellitus type: type 2 (4) HTN (hypertension) Code(s): I10 - ESSENTIAL (PRIMARY) HYPERTENSION Qualifiers: Hypertension type: essential hypertension Qualified Code(s): I10 - Essential (primary) hypertension (5) Hyperlipidemia Code(s): E78.5 - HYPERLIPIDEMIA, UNSPECIFIED Qualifiers: Hyperlipidemia type: pure hypercholesterolemia Qualified Code(s): E78.00 - Pure hypercholesterolemia, unspecified (6) Paroxysmal atrial fibrillation Code(s): I48.0 - PAROXYSMAL ATRIAL FIBRILLATION Assessment/Plan Acute Bronchitis Acute COPD Exacerbation Chronic Hypoxic Respiratory Failure Paroxysmal Atrial Fibrillation Morbid Obesity HTN Hyperlipidemia - would increase prednisone 40mg daily - 5 day course of antibiotics - inhaled bronchodilators - O2 to keep Spo2 >90% - rate controlled - continue anticoagulation - outpt f/u and PFTs Thank you for this consult Manolo Elena MD
[2018-06-28] MEDS ORDERED: ONDANSETRON 4 MG/2 ML VIAL ONE (16:07)
[2018-06-28 19:03] VITALS: BP 145/88; PULSE 100; TEMP 98.9
[2018-06-28] MEDS ORDERED: RANITIDINE HCL 150 MG TABLET (FP) PO SCH (22:00)
--- NOTE | 2018-06-29 12:00 | CONS ---
INFECTIOUS DISEASE CONSULTATION DATE OF CONSULTATION: 06/28/2018 Patient was seen in the emergency room on June 28. This is a 52-year-old woman with past medical history of COPD. She is oxygen dependent, paroxysmal atrial fibrillation. She has a chronic tracheostomy. She presented to the emergency room with apparently vomiting at home, some left-sided abdominal discomfort, some intermittent cough. She denied any fevers or chills. She noted she had been urinating frequently but had no dysuria. I was asked to see her in the emergency room for possible antibiotic use. The patient was awake and alert. She reports that she had had some bleeding at the tracheostomy site. She had some abdominal discomfort which she reported was improved. Her vomiting had stopped. She reported she was not short of breath and had had no fever. PAST MEDICAL HISTORY: Notable for paroxysmal atrial fibrillation, hypertension, hyperlipidemia, asthma. She is oxygen dependent with COPD and a chronic tracheostomy. She has history of GI bleed, history of uterine cancer, C. difficile in 2013. She has had vertebral osteomyelitis, anxiety, bipolar disorder, chronic low back pain, and diabetes. She takes pain medicine for her back pain. She has a history of appendectomy, hysterectomy with bilateral oophorectomy. She has a tracheostomy, and she has had back surgery, as well as bowel resection. SOCIAL HISTORY: She lives at home. She has 24-hour home health aide. She has been out of the senior care for about 2 months now and has not been hospitalized. Her PMD is . She stopped smoking in 2014. There is no history of any recent travel. ALLERGIES: She is allergic to OXYCODONE, ASPIRIN, BLUEBERRIES, and FENTANYL. She has no antibiotic allergies. She has not recently taken any antibiotics. MEDICATIONS AT HOME: Include Synthroid, albuterol, Symbicort, Bacid, Zofran, zinc oxide, vitamin D, omeprazole, alprazolam, Cardizem, Periactin, metoprolol, Daliresp, simethicone. Her medication list has not been verified. REVIEW OF SYSTEMS: She has not had any diarrhea. She has no dysuria. She has had no fevers or chills. PHYSICAL EXAMINATION: General: She is awake and alert. She is requesting pain medications for her back. Vital Signs: Temperature is 98.9. She has had no fever since admission. Pulse is 100, blood pressure 151/99, respiratory rate is 21. HEENT: She is normocephalic. Her eyes are anicteric. Neck: She has a tracheostomy in place with an oxygen collar. Lungs: Diminished breath sounds at the bases. Heart: Regular rate and rhythm. Abdomen: Soft, nontender. Extremities: Without edema. LABORATORY DATA: White count on admission was 13.1; on repeat this morning was 10.8. She did not receive any antibiotics. Hemoglobin 10.4. Platelets are 311. BUN is 24 and creatinine 0.8. Urinalysis is pending. She had a chest x-ray that was negative for any active pulmonary disease. She had a CAT scan of her abdomen and pelvis. That again did not show any acute abdominal pathology. In summary, this is a 52-year-old woman admitted with abdominal pain of unclear etiology, accompanied by vomiting, now resolved; urinary frequency without dysuria. She has no fevers. I would hold antibiotics. Her white count is normal today. Chest x-ray has no infiltrate. CAT scan has no acute process. If the UA is positive, can treat with ertapenem, as her last urine culture had a Klebsiella i.e. ESBL organism. Otherwise, would observe off antibiotics. Further recommendations to follow. Joseph [id number]
== END 2018-06-28 18:00 | disposition home or self-care (01) ==
LOC: JER 19:46 → JERBED 06-28 00:24
PROVIDERS: ADMIT Internal Medicine; ATTEND Family Medicine
PROC: 3E033NZ Introduction of Analgesics, Hypnotics, Sedatives into Peripheral Vein, Percutaneous Approach (ICD-10-PCS; principal; 2018-06-28)
PROC: 3E033GC Introduction of Other Therapeutic Substance into Peripheral Vein, Percutaneous Approach (ICD-10-PCS; 2018-06-28)
PROC: 3E0337Z Introduction of Electrolytic and Water Balance Substance into Peripheral Vein, Percutaneous Approach (ICD-10-PCS; 2018-06-28)
DX: J44.1 Chronic obstructive pulmonary disease with (acute) exacerbation (principal); J20.9 Acute bronchitis, unspecified; G89.4 Chronic pain syndrome; R11.2 Nausea with vomiting, unspecified; J96.21 Acute and chronic respiratory failure with hypoxia; K29.70 Gastritis, unspecified, without bleeding; K21.9 Gastro-esophageal reflux disease without esophagitis; M54.9 Dorsalgia, unspecified; F41.9 Anxiety disorder, unspecified; F41.8 Other specified anxiety disorders; E11.9 Type 2 diabetes mellitus without complications; I10 Essential (primary) hypertension; E78.5 Hyperlipidemia, unspecified; F19.20 Other psychoactive substance dependence, uncomplicated; I48.0 Paroxysmal atrial fibrillation; G62.9 Polyneuropathy, unspecified; F11.20 Opioid dependence, uncomplicated; D64.9 Anemia, unspecified; E66.01 Morbid (severe) obesity due to excess calories; Z68.32 Body mass index [BMI] 32.0-32.9, adult; Z85.42 Personal history of malignant neoplasm of other parts of uterus; Z88.8 Allergy status to other drugs, medicaments and biological substances; Z79.4 Long term (current) use of insulin; Z86.73 Personal history of transient ischemic attack (TIA), and cerebral infarction without residual deficits; Z79.01 Long term (current) use of anticoagulants; Z99.81 Dependence on supplemental oxygen; Z90.710 Acquired absence of both cervix and uterus; Z93.0 Tracheostomy status; Z88.6 Allergy status to analgesic agent; Z86.19 Personal history of other infectious and parasitic diseases; Z87.891 Personal history of nicotine dependence; Z86.69 Personal history of other diseases of the nervous system and sense organs
CPT/HCPCS: 36415; 71045-TC-FY; 74177-TC; 80048; 80053; 80307; 81003; 81015; 82550; 82962; 83605; 83690; 83735; 83880; 84100; 84484; 85025; 85610; 85730; 86850; 86900; 86901; 87086; 93005; 93010; 99284-25; G0378; J0131

== ENCOUNTER 2018-07-09 09:18 | Inpatient (IN) | payer OTHER ==
--- NOTE | 2018-07-09 09:31 | PDOC ---
History of Present Illness - General Stated Complaint: VOMITING Time Seen by Provider: 07/09/18 09:23 History Source: Patient - History of Present Illness Initial Comments: 07/09/18 10:28 Patient is a 52 year old female with a PMH of tracheostomy (placement 12/25 to tracheal narrowing), Afib (paroxysmal - not on A/C), COPD (on 2L home O2 PRN) , CVA, Asthma, osteomyelitis, chronic back pain, Uterine CA, presents with multiple medical complaints including back pain, RLE pain, vomiting, and vaginal rash. Patient reports treatment by her pain management doctor on 07/06 with multiple paraspinal injections. Injections provided 24 hours of relief and then pain returned. Patient additionally c/o 1 day h/o NBNB emesis. States she has been unable to tolerate solid food but has been tolerating liquid PO intake. Last meal was soup yesterday evening. Last bowel movement this morning prior to presentation and was normal. Patient is also c/o vulvar rash for which she has been applying A&D cream. Patient notes pain with weight bearing in L foot and ankle. Notes h/o recent trauma in which she caught her LLE between her wheelchair and the wall. ROS is also positive for increased secretions from her tracheostomy site. Patient denies fevers/chills. Patient denies chest pain, shortness of breath. Patient denies diarrhea/constipation, dysuria/hematuria. Patient denies recent travel/sick contacts Allergy: Oxycodone, ASA, fentanyl Surgical history: Tracheostomy, Bowel Resection, Lumbar surgery, Appendectomy, Hysterectomy (with BSO), and Stent Social: former smoker, denies other toxic habits PMD: Dr. Manolo Jaquez M.D. As per EMR patient was last evaluated in our ED in 06/2016 at which time she was treated for HCAP and Acute COPD exacerbation. H/o prior admissionsin 2015 and 2016 for abdominal pain with N/V. CT scan showed fatty liver w/o any other acute pathology. Past History - Past Medical History Allergies/Adverse Reactions: Allergies Allergy/AdvReac Type Severity Reaction Status Date / Time oxycodone [Oxycodone] Allergy Severe Nausea Verified 07/09/18 09:32 oxycodone HCl [From Percocet] Allergy Severe Nausea Verified 07/09/18 09:32 aspirin Allergy Mild Verified 07/09/18 09:32 blueberry [Blueberry] Allergy Mild Swelling Verified 07/09/18 09:32 fentanyl Allergy Verified 07/09/18 09:32 Home Medications: Ambulatory Orders Albuterol Sulfate Inhaler - [Ventolin HFA Inhaler -] 2 puff IH Q4H PRN #0 inhaler 11/29/16 Acetaminophen [Tylenol .Regular Strength -] 650 mg PO Q6H PRN #0 tablet Alprazolam [Xanax] 0.25 mg PO BID tablet MDD 2 03/27/17 Roflumilast [Daliresp -] 500 mcg PO DAILY tablet 03/27/17 Apixaban [Eliquis -] 5 mg PO BID tablet 04/29/17 Baclofen 30 mg PO TID 07/09/18 Cholecalciferol (Vitamin D3) [Vitamin D3] 2,000 unit PO WEEKLY 07/09/18 Cyanocobalamin [Vitamin B12 -] 100 mcg PO DAILY 07/09/18 Diltiazem HCl [Diltiazem 24Hr Cd] 240 mg PO DAILY 07/09/18 Gabapentin [Neurontin] 400 mg PO TID 07/09/18 HYDROmorphone [Dilaudid -] 4 mg PO Q4H PRN 07/09/18 Levocetirizine Dihydrochloride 5 mg PO HS 07/09/18 Levothyroxine [Synthroid -] 300 mcg PO DAILY 07/09/18 Multivitamin [One Daily] 1 each PO DAILY 07/09/18 Nortriptyline HCl [Pamelor -] 10 mg PO DAILY 07/09/18 Ondansetron [Ondansetron Odt] 8 mg PO BID PRN 07/09/18 Rifaximin [Xifaxan] 550 mg PO TID 07/09/18 Rosuvastatin Calcium [Crestor] 10 mg PO DAILY 07/09/18 Venlafaxine HCl ER [Effexor Xr -] 75 mg PO DAILY 07/09/18 Vortioxetine Hydrobromide [Trintellix] 10 mg PO DAILY 07/09/18 Zaleplon [Sonata] 10 mg PO HS 07/09/18 predniSONE [Deltasone -] 10 mg PO DAILY 07/09/18 predniSONE [Deltasone -] 20 mg PO WEEKLY 07/09/18 Anemia: Yes Asthma: Yes (COPD, trach) Cancer: Yes (UTERINE) Cardiac Disorders: Yes (A-fib) CVA: No COPD: Yes CHF: No Dementia: No Diabetes: Yes GI Disorders: Yes (colitis, SB resection, GERD) Disorders: Yes (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) HTN: Yes Hypercholesterolemia: Yes Liver Disease: No Psychiatric Problems: Yes (ANXIETY) Seizures: Yes (5 yrs ago had a seizure ( zofran and reglan given together as per patient) Thyroid Disease: No - Surgical History Abdominal Surgery: Yes (BOWEL RESECTION) Appendectomy: Yes (removed 1998) Cardiac Surgery: No Cholecystectomy: No Lung Surgery: No Neurologic Surgery: No Orthopedic Surgery: Yes (Back Sx T7,6) - Immunization History Td Vaccination: Yes TDAP Vaccination: Yes Immunization Up to Date: Yes - Suicide/Smoking/Psychosocial Hx Smoking Status: No Smoking History: Former smoker Have you smoked in the past 12 months: No Number of Cigarettes Smoked Daily: 3 If you are a former smoker, when did you quit?: 2014 'Breaking Loose' booklet given: 03/12/15 Hx Alcohol Use: No Drug/Substance Use Hx: No Substance Use Type: None Hx Substance Use Treatment: No Review of Systems - Review of Systems Constitutional: No: Chills, Fever HEENTM: No: Blurred Vision, Double Vision Respiratory: No: Cough, Shortness of Breath, Stridor, Wheezing Cardiac (ROS): No: Chest Pain, Lightheadedness, Palpitations, Syncope ABD/GI: Yes: Nausea. No: Diarrhea, Poor Appetite, Vomiting Integumentary: Yes: Pruritus, Rash *Physical Exam - Physical Exam General Appearance: Yes: Nourished, Appropriately Dressed HEENT: positive: EOMI, AYESHA Neck: positive: Trachea midline, Supple Respiratory/Chest: positive: Lungs Clear, Normal Breath Sounds. negative: Crackles, Rales, Stridor Cardiovascular: positive: S1, S2. negative: JVD Gastrointestinal/Abdominal: positive: Soft, Tenderness. negative: Distended, Guarding, Hernia, Mass (mild diffuse TTP) Musculoskeletal: negative: CVA Tenderness (R), CVA Tenderness (L) Extremity: positive: Normal Capillary Refill, Normal Inspection Integumentary: positive: Dry, Warm, Other (B/L abdominal LQ candidiasis, vulvar and B/L groin erythema) Neurologic: positive: Fully Oriented, Alert ED Treatment Course - LABORATORY CBC & Chemistry Diagram: 07/09/18 10:47 07/09/18 10:49 Medical Decision Making - Medical Decision Making 07/09/18 10:31 52 year old female with vomiting and RLE pain and chronic back pain. Tachycardic on PE. Questionable h/o RLE trauma. DDX: DVT, PE vs. R foot ankle fracture as well SBO, r/o ACS, diabetic gastroparesis, UTI + serial belly exam Will obtain basic labs, Troponin, CXR,, UA/UC Benadryl, Reglan, Morphine + IV NS 07/09/18 11:39 Leukocytosis (15.9) - CT abdomen pending 07/09/18 11:52 UA shows 3+ Leukocyte esterase, 16 WBC U/C pending. As per EMR, h/o ESBL (U/C from 2018 contaminated) susceptible to Bactrim, Gentamicin. Will give OTD of Bactrim (patient not on ISAMAR/Arbs) given Gentamicin's nephrotoxicity. 07/09/18 12:27 Repeat belly exam shows mild TTP. Patient resting comfortably s/p Morphine. Case d/w with Dr. Goel (covering for patient's PMD) will admit for further evaluation. 07/09/18 16:40 XR shows intact mortise,no soft tissue swelling, no fracture - patient's pain likely 2/[address] Abdomen shows no acute pathology, fatty liver c/w prior CT, no other acute pathology. Patient tolerating PO intake In light of patient's mild UTI, non-concerning CT scan, consider cellulitis as possible source of infection. Will start Bactrim for UTI as well as Clindamycin for possible cellulitis. Patient counseled extensively about lab findings. Pain control with Dilaudid ( PRN as ordered per primary). *DC/Admit/Observation/Transfer Diagnosis at time of Disposition: Leukocytosis - Discharge Dispostion Condition at time of disposition: Fair Decision to Admit order: Yes - Referrals - Patient Instructions - Post Discharge Activity
[2018-07-09] MEDS ORDERED: ONDANSETRON 4 MG/2 ML VIAL IVPUSH ONE ×2 (09:50→14:08)
[2018-07-09] MEDS ORDERED: SODIUM CHLORIDE 0.9% 500 ML INFUS.BAG IV ONE (09:58)
[2018-07-09] MEDS ORDERED: morphine CARPU-JECT 4 MG/1 ML DISP.SYRIN IVPUSH ONE (10:37)
[2018-07-09] MEDS ORDERED: METOCLOPRAMIDE HCL INJECTION 10 MG/2 ML VIAL IVPUSH ONE (10:39)
--- NOTE | 2018-07-09 10:56 | PDOC ---
Attending Attestation - HPI HPI: 07/09/18 11:00 The patient is a 52-year-old female with past medical history of AFib ( Paroxysmal), HTN, HLD, COPD O2 dependent, Uterine CA stents/[place] in the past, Osteomyelitis of the thoracic spine, chronic back pain (since 2012) and DM presents to the emergency department with multiple complain. The patient reports a baseline history of chronic back pain, states on the 06 of July she had multiple injections to the mid-back by a pain management doctor, unable to recall details. The patient states s/p the injection patient did have relief but states the pain did flare up again. The patient states the back pain is associated with episodes of nausea and nonbilious-bloody emesis and increased secretion with coughing. The patient reports a prior diagnosis of gastroparesis , states the symptoms feels similar to a flare-up. Denies shortness of breath. The patient reports additional concerns of scattered rashes B/l to the inguinal region going down to the rectum. The patient states shes been applying A&D to the area, with relief. The patient states initially there were blisters, that's been improved. The patient reports shes been having increased urinary frequency every 15 minutes. Denies dysuria and hematuria. The patient reports pain to the L. foot. Allergies: oxycodone, oxycodone HCl, aspirin, fentanyl and blueberry Social history: Former smoker. No alcohol or recreational drug use reported. Surgical history: Tracheostomy, Bowel Resection, Lumbar surgery, Appendectomy, Hysterectomy (with BSO), and Stent PCP: Dr. Juno Jaquez. - Physicial Exam PE: 07/09/18 11:00 Vitals: Triage vital signs reviewed General Appearance: (+) Trach in place. No acute distress, well nourished, well developed Head: Atraumatic Neck: Supple; No nuchal rigidity Chest Wall: Nontender Cardiac: Regular rate and rhythm, no murmurs, no rubs, no gallops Lungs: (+) Faint wheeze and crackles to the L. lower lobe. Clear to auscultation bilateral, good air movement bilaterally Abdomen: (+) Distended. Soft, normal bowel sounds, nontender to palpation. Musculoskeletal: (+) Small tenderness to the site of the pain management injection, skin with no evidence of cellulitis. Extremities: Full range of motion to all extremities, no cyanosis, clubbing, or edema Skin: (+) Fungal type rash to the groin and buttocks. Rest of the skin: Warm and dry, no rashes or lesions, no rash, no petechiae Psych: Normal mood, normal affect - Medical Decision Making 07/09/18 11:01 The patient is a 52-year-old female with past medical history of AFib ( Paroxysmal), HTN, HLD, COPD O2 dependent, Uterine CA stents/Titus in the past, Osteomyelitis of the thoracic spine, chronic back pain (since 2012) and DM presents to the emergency department with multiple complain. The patient reports a baseline history of chronic back pain, states on the 06 of July she had multiple injections to the mid-back by a pain management doctor, unable to recall details. The patient states s/p the injection patient did have relief but states the pain did flare up again. The patient states the back pain is associated with episodes of nausea and nonbilious-bloody emesis and increased secretion with coughing. The patient reports a prior diagnosis of gastroparesis , states the symptoms feels similar to a flare-up. Denies shortness of breath. The patient reports additional concerns of scattered rashes B/l to the inguinal region going down to the rectum. The patient states shes been applying A&D to the area, with relief. The patient states initially there were blisters, that's been improved. The patient reports shes been having increased urinary frequency every 15 minutes. Denies dysuria and hematuria. The patient reports pain to the L. foot. 07/09/18 11:01 Documentation prepared by Yesenia Ruelas, acting as medical voucher clerk for Chino Ha MD. <Yesenia Ruelas - Last Filed: 07/09/18 12:20> - Resident Resident Name: Latasha Reveles - ED Attending Attestation I have performed the following: I have examined & evaluated the patient, The case was reviewed & discussed with the resident, I agree w/resident's findings & plan, Exceptions are as noted - Medical Decision Making Low-grade fever chills abdominal pain history of gastroparesis Labs notable for elevated white blood cell count CAT scan with no acute findings. We'll observe overnight on medicine service we'll treat with Bactrim based on previous sensitivities for UTI , Clindamycin for possible cellulitis in the perineum, observe and reassess. 07/09/18 17:12 <Chino Ha - Last Filed: 07/09/18 17:15> Heart Score/ECG Review - ECG Impressions Comment:: 07/09/18 17:15 Sinus tachycardia 107. No ST elevations or T-wave inversions. Interpreted by me. <Chino Ha - Last Filed: 07/09/18 17:15>
[2018-07-09 10:57] LABS: BASO % 0.8 % (0-2.0); EOS % 0.8 % (0-4.5); HEMATOCRIT 37.7 % (32.4-45.2); LYMPH % 10.3 % (8-40); MCH 25.5 pg (25.7-33.7); MCHC 31.8 g/dl (32.0-36.0); MEAN CELL VOLUME 80.2 fl (80-96); MEAN PLT VOLUME 8.9 fl (7.5-11.1); MONO % 5.4 % (3.8-10.2); NEUT % 82.7 % (42.8-82.8); PLATELET COUNT 402 K/MM3 (134-434); RDW 16.6 % (11.6-15.6); WHITE BLOOD COUNT 15.9 K/mm3 (4.0-10.0)
[2018-07-09] MEDS ORDERED: METOCLOPRAMIDE HCL INJECTION 10 MG/2 ML VIAL ONE (11:04)
[2018-07-09] MEDS ORDERED: morphine SULFATE 4 MG/ML VIAL ONE (11:05)
[2018-07-09 11:21] LABS: ALBUMIN 3.1 g/dl (3.4-5.0); ANION GAP 7 (8-16); BILIRUBIN,TOTAL 0.3 mg/dL (0.2-1.0); BLOOD UREA NITROGEN 21 mg/dL (7-18); CALCIUM 8.7 mg/dL (8.5-10.1); CHLORIDE 96 mmol/L (98-107); CO2 33 mmol/L (21-32); CREATININE 0.6 mg/dL (0.55-1.02); GLUCOSE,RANDOM 97 mg/dL (74-106); LIPASE 199 U/L (73-393); SGPT/ALT 42 U/L (12-78); SODIUM 136 mmol/L (136-145)
[2018-07-09 11:23] LABS: ALK PHOS 121 U/L (45-117)
[2018-07-09 11:28] LABS: POTASSIUM 4.7 mmol/L (3.5-5.1); SGOT/AST 46 U/L (15-37)
[2018-07-09 12:03] LABS: URINE APPEARANCE SLCLOUDY; URINE BILIRUBIN NEGATIVE (<2.0 mg/dL); URINE COLOR LTYELLOW; URINE GLUCOSE (UA) NEGATIVE (NEGATIVE); URINE KETONE NEGATIVE (NEGATIVE); URINE NITRITE NEGATIVE (NEGATIVE); URINE UROBILINOGEN NEGATIVE mg/dL (0.2-1.0)
[2018-07-09 12:07] LABS: URINE LEUK ESTERASE 3+ (NEGATIVE); URINE PROTEIN 2+ (NEGATIVE)
[2018-07-09 12:13] LABS: EPI CELLS RARE /HPF (FEW); URINE MUCUS RARE
[2018-07-09] MEDS ORDERED: MORPHINE SULFATE 2 MG/ML VIAL IVPUSH ONE (14:09)
[2018-07-09] MEDS ORDERED: ONDANSETRON 4 MG/2 ML VIAL ONE (14:13)
[2018-07-09] MEDS ORDERED: MORPHINE SULFATE 2 MG/ML VIAL ONE (14:13)
[2018-07-09 14:34] LABS: ANISOCYTOSIS 1+; MACROCYTOSIS 0; PLATELET ESTIMATE NORMAL
[2018-07-09] MEDS ORDERED: BACLOFEN 10 MG TABLET (FP) PO ONE (16:22)
[2018-07-09] MEDS ORDERED: BACLOFEN 10 MG TABLET (FP) ONE (16:29)
[2018-07-09] MEDS ORDERED: SULFAMETHOXAZOLE/TRIMETHOPRIM 800MG/160MG D.S. TABLET PO SCH (17:00)
[2018-07-09] MEDS ORDERED: CLINDAMYCIN 900 MG PREMIX IVPB 900 MG/50 ML BAG IVPB ONE ×2 (17:12→17:21)
[2018-07-09] MEDS ORDERED: ACETAMINOPHEN 325 MG TABLET (FP) PO PRN (17:39)
[2018-07-09] MEDS ORDERED: ALBUTEROL SO4 2.5/IPRATROPIUM 0.5 INH SOL 3 ML VIAL.NEB. NEB PRN (17:39)
[2018-07-09] MEDS ORDERED: DOCUSATE SODIUM 100 MG CAPSULE (FP) PO PRN (17:39)
[2018-07-09] MEDS ORDERED: HYDROmorphone HCL 2 MG TABLET ONE (19:24)
--- NOTE | 2018-07-09 21:17 | HP ---
Admitting History and Physical - Primary Care Physician PCP: Kaz Goel - Admission Chief Complaint: ABD PAIN/UTI History of Present Illness: The patient is a 52-year-old female with past medical history of AFib ( Paroxysmal), HTN, HLD, COPD O2 dependent, Uterine CA stents/[place] in the past, Osteomyelitis of the thoracic spine, chronic back pain (since 2012) and DM presents to the emergency department with multiple complain. The patient reports a baseline history of chronic back pain, states on the 06 of July she had multiple injections to the mid-back by a pain management doctor, unable to recall details. The patient states s/p the injection patient did have relief but states the pain did flare up again. The patient states the back pain is associated with episodes of nausea and nonbilious-bloody emesis and increased secretion with coughing. The patient reports a prior diagnosis of gastroparesis , states the symptoms feels similar to a flare-up. Denies shortness of breath. The patient reports additional concerns of scattered rashes B/l to the inguinal region going down to the rectum. The patient states shes been applying A&D to the area, with relief. The patient states initially there were blisters, that's been improved. The patient reports shes been having increased urinary frequency every 15 minutes. Denies dysuria and hematuria. The patient reports pain to the L. foot. History Source: Medical Record Limitations to Obtaining History: Poor Historian - Past Medical History Cardiovascular: Yes: AFIB (Paroxysmal), HTN, Hyperlipdemia Pulmonary: Yes: Asthma, COPD, O2 Dependent Gastrointestinal: Yes: GI Bleed Renal/: Yes: Cancer (Uterine), Other (STENTS/[place] in the past) Heme/Onc: Yes: Other (uterine cancer) Infectious Disease: Yes: C-Diff (june 2014), Other (Osteomyelitis of thoracic spine) Psych: Yes: Anxiety, Bipolar, Depression Musculoskeletal: Yes: Chronic low back pain Endocrine: Yes: Diabetes Mellitus - Past Surgical History Past Surgical History: Yes: Appendectomy, Hysterectomy (with BSO), Stent - Smoking History Smoking history: Former smoker Have you smoked in the past 12 months: No Aproximately how many cigarettes per day: 3 If you are a former smoker, when did you quit?: 2015 - Alcohol/Substance Use Hx Alcohol Use: No - Social History 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) History of Recent Travel: No Home Medications - Allergies Allergies/Adverse Reactions: Allergies Allergy/AdvReac Type Severity Reaction Status Date / Time oxycodone [Oxycodone] Allergy Severe Nausea Verified 07/09/18 09:32 oxycodone HCl [From Percocet] Allergy Severe Nausea Verified 07/09/18 09:32 aspirin Allergy Mild Verified 07/09/18 09:32 blueberry [Blueberry] Allergy Mild Swelling Verified 07/09/18 09:32 fentanyl Allergy Verified 07/09/18 09:32 - Home Medications Home Medications: Ambulatory Orders Albuterol Sulfate Inhaler - [Ventolin HFA Inhaler -] 2 puff IH Q4H PRN #0 inhaler 11/29/16 Acetaminophen [Tylenol .Regular Strength -] 650 mg PO Q6H PRN #0 tablet Alprazolam [Xanax] 0.25 mg PO BID tablet MDD 2 03/27/17 Roflumilast [Daliresp -] 500 mcg PO DAILY tablet 03/27/17 Apixaban [Eliquis -] 5 mg PO BID tablet 04/29/17 Baclofen 30 mg PO TID 07/09/18 Cholecalciferol (Vitamin D3) [Vitamin D3] 2,000 unit PO WEEKLY 07/09/18 Cyanocobalamin [Vitamin B12 -] 100 mcg PO DAILY 07/09/18 Diltiazem HCl [Diltiazem 24Hr Cd] 240 mg PO DAILY 07/09/18 Gabapentin [Neurontin] 400 mg PO TID 07/09/18 HYDROmorphone [Dilaudid -] 4 mg PO Q4H PRN 07/09/18 Levocetirizine Dihydrochloride 5 mg PO HS 07/09/18 Levothyroxine [Synthroid -] 300 mcg PO DAILY 07/09/18 Multivitamin [One Daily] 1 each PO DAILY 07/09/18 Nortriptyline HCl [Pamelor -] 10 mg PO DAILY 07/09/18 Ondansetron [Ondansetron Odt] 8 mg PO BID PRN 07/09/18 Rifaximin [Xifaxan] 550 mg PO TID 07/09/18 Rosuvastatin Calcium [Crestor] 10 mg PO DAILY 07/09/18 Venlafaxine HCl ER [Effexor Xr -] 75 mg PO DAILY 07/09/18 Vortioxetine Hydrobromide [Trintellix] 10 mg PO DAILY 07/09/18 Zaleplon [Sonata] 10 mg PO HS 07/09/18 predniSONE [Deltasone -] 10 mg PO DAILY 07/09/18 predniSONE [Deltasone -] 20 mg PO WEEKLY 07/09/18 Family Disease History - Family Disease History Family Disease History: Diabetes: Mother (heart surgery), Heart Disease: Mother , CA: Father (leukemia) Review of Systems - Review of Systems Constitutional: reports: Loss of Appetite, Weakness Eyes: reports: No Symptoms HENT: reports: No Symptoms Neck: reports: No Symptoms Cardiovascular: reports: No Symptoms Respiratory: reports: No Symptoms Gastrointestinal: reports: No Symptoms Genitourinary: reports: Dysuria, Frequency Musculoskeletal: reports: Back Pain, Joint Pain, Muscle Weakness Integumentary: reports: Erythema, Wound Neurological: reports: Parasthesia, Pre-Existing Deficit, Unsteady Gait Endocrine: reports: No Symptoms Hematology/Lymphatic: reports: No Symptoms Psychiatric: reports: Anxiety, Depression Pain Intensity: 6 Physical Examination Vital Signs: Vital Signs Temperature 99.1 F 07/09/18 20:57 Pulse Rate 130 H 07/09/18 20:57 Respiratory Rate 20 07/09/18 20:57 Blood Pressure 121/76 07/09/18 20:57 O2 Sat by Pulse Oximetry (%) 98 07/09/18 17:47 Constitutional: Yes: Mild Distress Eyes: Yes: WNL HENT: Yes: WNL Neck: Yes: WNL Cardiovascular: Yes: Pulse Irregular Respiratory: Yes: WNL, On Nasal O2 Gastrointestinal: Yes: Abdomen, Obese, Tenderness Renal/: Yes: Incontinence, Other Musculoskeletal: Yes: Muscle Weakness Extremities: Yes: Other Edema: Yes Edema: LLE: 1+, RLE: 1+ Peripheral Pulses WNL: Yes Integumentary: Yes: Pressure Ulcer, Skin Tear, Venous Stasis Changes Wound/Incision: Yes: Open to air, Dressing Dry and Intact Neurological: Yes: Loss of Sensation, Pre-Existing Deficit, Unsteady Gait, Weakness ...Motor Strength: LLE, RLE Psychiatric: Yes: Other Labs: CBC, BMP 07/09/18 10:47 07/09/18 10:49 Imaging - Results Cat Scan: Report Reviewed Problem List - Problems (1) UTI (urinary tract infection) Code(s): N39.0 - URINARY TRACT INFECTION, SITE NOT SPECIFIED (2) Leukocytosis Code(s): D72.829 - ELEVATED WHITE BLOOD CELL COUNT, UNSPECIFIED (3) Abdominal pain Code(s): R10.9 - UNSPECIFIED ABDOMINAL PAIN (4) Anemia Code(s): D64.9 - ANEMIA, UNSPECIFIED (5) Depression with anxiety Code(s): F41.8 - OTHER SPECIFIED ANXIETY DISORDERS (6) GERD (gastroesophageal reflux disease) Code(s): K21.9 - GASTRO-ESOPHAGEAL REFLUX DISEASE WITHOUT ESOPHAGITIS (7) HTN (hypertension) Code(s): I10 - ESSENTIAL (PRIMARY) HYPERTENSION Qualifiers: (8) Hyperlipidemia Code(s): E78.5 - HYPERLIPIDEMIA, UNSPECIFIED Qualifiers: (9) Mood disorder Code(s): F39 - UNSPECIFIED MOOD [AFFECTIVE] DISORDER (10) Neuropathy Code(s): G62.9 - POLYNEUROPATHY, UNSPECIFIED (11) Non compliance w medication regimen Code(s): Z91.14 - PATIENT'S OTHER NONCOMPLIANCE WITH MEDICATION REGIMEN Assessment/Plan CHECK URINE CX/SENS IV ABX ID F/U CT ABD NO ACUTE CHANGES DVT PROPHYLAXIS ON CHRISSIE OOB TO CHAIR WITH PT PAIN CONTROL OPIOD DEPENDENCE? WILL D/W HER PMD WHO DOES NOT HAVE PRIVILEGES AT [facility]
[2018-07-09] MEDS: NORTRIPTYLINE HCL 10 MG CAPSULE PO SCH (23:08)
[2018-07-09] MEDS: RIFAXIMIN 550 MG TABLET (UD) PO SCH (23:08)
[2018-07-09] MEDS: APIXABAN 5 MG TABLET PO SCH (23:08)
[2018-07-09] MEDS: ROSUVASTATIN CA 10 MG TABLET (FP) PO SCH (23:08)
[2018-07-09] MEDS: KETOCONOZOLE 2% TOPICAL CREAM 15 GM TUBE TP SCH (23:09)
[2018-07-09] MEDS: GABAPENTIN 400 MG CAPSULE (FP) PO SCH (23:09)
[2018-07-09] MEDS: ALPRAZolam 0.25 MG TABLET PO SCH (23:09)
[2018-07-09] MEDS: BACLOFEN 10 MG TABLET (FP) PO SCH (23:09)
[2018-07-10] MEDS: GABAPENTIN 400 MG CAPSULE (FP) PO SCH ×3 (06:05→21:14)
[2018-07-10] MEDS: LEVOTHYROXINE NA 100 MCG TABLET (FP) PO SCH (06:06)
[2018-07-10 08:42] LABS: HEMATOCRIT 33.5 % (32.4-45.2); HEMOGLOBIN 10.7 GM/dL (10.7-15.3); MCH 26.1 pg (25.7-33.7); MEAN CELL VOLUME 81.5 fl (80-96); MEAN PLT VOLUME 8.9 fl (7.5-11.1); PLATELET COUNT 292 K/MM3 (134-434); RBC 4.11 M/mm3 (3.60-5.2); RDW 16.7 % (11.6-15.6)
[2018-07-10 09:25] LABS: CHLORIDE 99 mmol/L (98-107); POTASSIUM 4.4 mmol/L (3.5-5.1); SODIUM 139 mmol/L (136-145)
[2018-07-10 09:34] LABS: ALBUMIN 2.7 g/dl (3.4-5.0); ALK PHOS 104 U/L (45-117); ANION GAP 8 (8-16); BILIRUBIN,TOTAL 0.1 mg/dL (0.2-1.0); BLOOD UREA NITROGEN 21 mg/dL (7-18); CALCIUM 8.4 mg/dL (8.5-10.1); CHOLESTEROL 140 mg/dL (50-200); CO2 32 mmol/L (21-32); CREATININE 0.8 mg/dL (0.55-1.02); GLUCOSE,RANDOM 265 mg/dL (74-106); HDL CHOLESTEROL 52 mg/dL (40-60); SGOT/AST 23 U/L (15-37); SGPT/ALT 37 U/L (12-78); TOT PROT 5.9 g/dl (6.4-8.2); TRIGLYCERIDES 231 mg/dL (35-160)
[2018-07-10] MEDS: KETOCONOZOLE 2% TOPICAL CREAM 15 GM TUBE TP SCH (10:37)
[2018-07-10] MEDS ORDERED: PT OWN MED DRAWER 7, Y5N ONE ×3 (11:21→21:06)
[2018-07-10] MEDS: BACLOFEN 10 MG TABLET (FP) PO SCH ×2 (11:29→21:14)
--- NOTE | 2018-07-10 11:29 | PN ---
Progress Note, Physician History of Present Illness: 52-year-old female with past medical history of AFib (Paroxysmal), HTN, HLD, COPD O2 dependent, Uterine CA stents/Titus in the past, Osteomyelitis of the thoracic spine, chronic back pain (since 2012) and DM presents to the emergency department with multiple complain. The patient reports a baseline history of chronic back pain, states on the 06 of July she had multiple injections to the mid-back by a pain management doctor, unable to recall details. The patient states s/p the injection patient did have relief but states the pain did flare up again. The patient states the back pain is associated with episodes of nausea and nonbilious-bloody emesis and increased secretion with coughing. The patient reports a prior diagnosis of gastroparesis, states the symptoms feels similar to a flare-up. Denies shortness of breath. - Current Medication List Current Medications: Active Medications Acetaminophen (Tylenol -) 650 mg PO Q6H PRN PRN Reason: PAIN OR FEVER Albuterol/Ipratropium (Duoneb -) 1 amp NEB Q6H PRN PRN Reason: SHORTNESS OF BREATH Alprazolam (Xanax -) 0.25 mg PO BID [facility] Last Admin: 07/09/18 23:09 Dose: 0.25 mg Apixaban (Eliquis -) 5 mg PO BID [facility] Last Admin: 07/09/18 23:08 Dose: 5 mg Baclofen (Lioresal -) 30 mg PO BID [facility] Last Admin: 07/09/18 23:09 Dose: 30 mg Diltiazem HCl (Cardizem Cd -) 240 mg PO DAILY [facility] Docusate Sodium (Colace -) 100 mg PO BID PRN PRN Reason: CONSTIPATION Gabapentin (Neurontin -) 400 mg PO TID [facility] Last Admin: 07/10/18 06:05 Dose: 400 mg Hydromorphone HCl (Dilaudid -) 4 mg PO Q6H PRN PRN Reason: PAIN LEVEL 7 - 10 Last Admin: 07/10/18 06:05 Dose: 4 mg Ketoconazole (Nizoral 2% Cream -) 1 applic TP DAILY [facility] Last Admin: 07/09/18 23:09 Dose: 1 applic Levothyroxine Sodium (Synthroid -) 300 mcg PO DAILY@0700 [facility] Last Admin: 07/10/18 06:06 Dose: 300 mcg Nortriptyline HCl (Pamelor -) 10 mg PO HS [facility] Last Admin: 07/09/18 23:08 Dose: 10 mg Ondansetron HCl (Zofran Odt -) 4 mg SL Q6H PRN PRN Reason: NAUSEA AND/OR VOMITING Prednisone (Deltasone -) 10 mg PO DAILY [facility] Rifaximin (Xifaxan -) 550 mg PO BID [facility] Last Admin: 07/09/18 23:08 Dose: 550 mg Roflumilast (Daliresp -) 500 mcg PO DAILY [facility] Rosuvastatin Calcium (Crestor -) 10 mg PO HS [facility] Last Admin: 07/09/18 23:08 Dose: 10 mg Venlafaxine HCl (Effexor Xr -) 75 mg PO DAILY [facility] - Objective Vital Signs: Vital Signs Temperature 97.4 F L 07/10/18 06:00 Pulse Rate 113 H 07/10/18 06:00 Respiratory Rate 20 07/10/18 06:00 Blood Pressure 117/87 07/10/18 06:00 O2 Sat by Pulse Oximetry (%) 98 07/09/18 23:00 Cardiovascular: Yes: S1, S2 Respiratory: Yes: Rhonchi, Other (trach) Gastrointestinal: Yes: Normal Bowel Sounds, Soft. No: Tenderness Edema: No Labs: CBC, BMP 07/10/18 08:05 07/10/18 08:05 Problem List - Problems (1) Leukocytosis Assessment/Plan: -Afebrile -cultures noted--ID consult Code(s): D72.829 - ELEVATED WHITE BLOOD CELL COUNT, UNSPECIFIED (2) UTI (urinary tract infection) Assessment/Plan: Microbiology 07/09/18 10:23 Urine Culture - Preliminary Urine - Urine Clean Catch Proteus Species Group D Strep Or Entero Coccus Code(s): N39.0 - URINARY TRACT INFECTION, SITE NOT SPECIFIED (3) Respiratory failure Assessment/Plan: nebs -trach collar Code(s): J96.90 - RESPIRATORY FAILURE, UNSP, UNSP W HYPOXIA OR HYPERCAPNIA (4) Afib Assessment/Plan: -on eliquis Code(s): I48.91 - UNSPECIFIED ATRIAL FIBRILLATION (5) COPD (chronic obstructive pulmonary disease) Assessment/Plan: -nebs -pulm Code(s): J44.9 - CHRONIC OBSTRUCTIVE PULMONARY DISEASE, UNSPECIFIED Qualifiers: COPD type: unspecified COPD Qualified Code(s): J44.9 - Chronic obstructive pulmonary disease, unspecified (6) Diabetes mellitus Assessment/Plan: bgm Code(s): E11.9 - TYPE 2 DIABETES MELLITUS WITHOUT COMPLICATIONS Qualifiers: Diabetes mellitus type: type 2 (7) Nausea and vomiting Assessment/Plan: -resolved -diet -monitor -ct nad Code(s): R11.2 - NAUSEA WITH VOMITING, UNSPECIFIED Qualifiers: Vomiting type: unspecified Vomiting Intractability: unspecified Qualified Code(s): R11.2 - Nausea with vomiting, unspecified
[2018-07-10] MEDS: APIXABAN 5 MG TABLET PO SCH ×2 (11:30→21:14)
[2018-07-10] MEDS: ALPRAZolam 0.25 MG TABLET PO SCH ×2 (11:30→21:15)
[2018-07-10] MEDS: RIFAXIMIN 550 MG TABLET (UD) PO SCH ×2 (11:30→21:15)
[2018-07-10] MEDS: predniSONE 10 MG TABLET (UD) PO SCH (11:33)
--- NOTE | 2018-07-10 12:03 | CON.PULM ---
Consult Consult Specialty:: PULMONARY Referred by:: IRINEO Reason for Consultation:: COPD/TRACH - History of Present Illness Chief Complaint: ABD PAIN History of Present Illness: Patient is a 52 year old female with a PMH of tracheostomy (placement 12/25 to tracheal narrowing), Afib (paroxysmal - not on A/C), COPD (on 2L home O2 PRN) , CVA, Asthma, osteomyelitis, chronic back pain, Uterine CA, presents with multiple medical complaints including back pain, RLE pain, vomiting, and vaginal rash. Patient reports treatment by her pain management doctor on 07/06 with multiple paraspinal injections. Injections provided 24 hours of relief and then pain returned. Patient additionally c/o 1 day h/o NBNB emesis. States she has been unable to tolerate solid food but has been tolerating liquid PO intake. Last meal was soup yesterday evening. Last bowel movement this morning prior to presentation and was normal. Patient is also c/o vulvar rash for which she has been applying A&D cream. Patient notes pain with weight bearing in L foot and ankle. Notes h/o recent trauma in which she caught her LLE between her wheelchair and the wall. ROS is also positive for increased secretions from her tracheostomy site. 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 Presumed adhesions from prior surgeries. - Past Surgical History Past Surgical History: Yes: Appendectomy, Hysterectomy (with BSO), Stent - Alcohol/Substance Use Hx Alcohol Use: No - Smoking History Smoking history: Former smoker Have you smoked in the past 12 months: No Aproximately how many cigarettes per day: 3 If you are a former smoker, when did you quit?: 2014 - Social History Usual Living Arrangement: Residential 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) History of Recent Travel: No Home Medications - Allergies Allergies/Adverse Reactions: Allergies Allergy/AdvReac Type Severity Reaction Status Date / Time oxycodone [Oxycodone] Allergy Severe Nausea Verified 07/09/18 09:32 oxycodone HCl [From Percocet] Allergy Severe Nausea Verified 07/09/18 09:32 aspirin Allergy Mild Verified 07/09/18 09:32 blueberry [Blueberry] Allergy Mild Swelling Verified 07/09/18 09:32 fentanyl Allergy Verified 07/09/18 09:32 - Home Medications Home Medications: Ambulatory Orders Albuterol Sulfate Inhaler - [Ventolin HFA Inhaler -] 2 puff IH Q4H PRN #0 inhaler 11/29/16 Acetaminophen [Tylenol .Regular Strength -] 650 mg PO Q6H PRN #0 tablet Alprazolam [Xanax] 0.25 mg PO BID tablet MDD 2 03/27/17 Roflumilast [Daliresp -] 500 mcg PO DAILY tablet 03/27/17 Apixaban [Eliquis -] 5 mg PO BID tablet 04/29/17 Baclofen 30 mg PO TID 07/09/18 Cholecalciferol (Vitamin D3) [Vitamin D3] 2,000 unit PO WEEKLY 07/09/18 Cyanocobalamin [Vitamin B12 -] 100 mcg PO DAILY 07/09/18 Diltiazem HCl [Diltiazem 24Hr Cd] 240 mg PO DAILY 07/09/18 Gabapentin [Neurontin] 400 mg PO TID 07/09/18 HYDROmorphone [Dilaudid -] 4 mg PO Q4H PRN 07/09/18 Levocetirizine Dihydrochloride 5 mg PO HS 07/09/18 Levothyroxine [Synthroid -] 300 mcg PO DAILY 07/09/18 Multivitamin [One Daily] 1 each PO DAILY 07/09/18 Nortriptyline HCl [Pamelor -] 10 mg PO DAILY 07/09/18 Ondansetron [Ondansetron Odt] 8 mg PO BID PRN 07/09/18 Rifaximin [Xifaxan] 550 mg PO TID 07/09/18 Rosuvastatin Calcium [Crestor] 10 mg PO DAILY 07/09/18 Venlafaxine HCl ER [Effexor Xr -] 75 mg PO DAILY 07/09/18 Vortioxetine Hydrobromide [Trintellix] 10 mg PO DAILY 07/09/18 Zaleplon [Sonata] 10 mg PO HS 07/09/18 predniSONE [Deltasone -] 10 mg PO DAILY 07/09/18 predniSONE [Deltasone -] 20 mg PO WEEKLY 07/09/18 Family Disease History - Family Disease History Family Disease History: Diabetes: Mother (heart surgery), Heart Disease: Mother , CA: Father (leukemia) Review of Systems - Review of Systems Constitutional: denies: Fever Eyes: denies: Blurred Vision HENT: denies: Difficult Swallowing Neck: denies: Decreased ROM Cardiovascular: denies: Chest Pain Respiratory: reports: Cough, Exercise Intolerance, Wheezing (HAS CHRONIC COUGH) , Other. denies: Hemoptysis Gastrointestinal: reports: Bloating, Indigestion. denies: Rectal Bleeding, Vomiting Genitourinary: reports: No Symptoms Breasts: reports: No Symptoms Reported Musculoskeletal: reports: Muscle Weakness Integumentary: reports: No Symptoms Neurological: reports: No Symptoms Physical Exam Vital Sings: Vital Signs Temperature 98.2 F 07/10/18 11:43 Pulse Rate 119 H 07/10/18 11:43 Respiratory Rate 19 07/10/18 11:43 Blood Pressure 129/74 07/10/18 11:43 O2 Sat by Pulse Oximetry (%) 98 07/09/18 23:00 Constitutional: Yes: Calm Eyes: Yes: EOM Intact HENT: Yes: Normocephalic, Other (CUSHINOID) Neck: Yes: Other (TRACH IN PLACE) Respiratory: Yes: Diminished Gastrointestinal: Yes: Soft Edema: No Neurological: Yes: Alert Labs: CBC, BMP 07/10/18 08:05 07/10/18 08:05 Imaging - Results Chest X-ray: Report Reviewed, Image Reviewed Cat Scan: Report Reviewed Problem List - Problems (1) Abdominal pain Code(s): R10.9 - UNSPECIFIED ABDOMINAL PAIN (2) Acute and chronic respiratory failure with hypoxia Code(s): J96.21 - ACUTE AND CHRONIC RESPIRATORY FAILURE WITH HYPOXIA (3) Acute on chronic respiratory failure with hypoxia and hypercapnia Code(s): J96.21 - ACUTE AND CHRONIC RESPIRATORY FAILURE WITH HYPOXIA; J96.22 - ACUTE AND CHRONIC RESPIRATORY FAILURE WITH HYPERCAPNIA Assessment/Plan GI WORKUP IN PROGRESS CONTINUE O2/BRONCHODILATORS/PRED BASIC TRACH CARE RESP STATUS IS STABLE WILL FOLLOW Sreedhar SEXTON MD
[2018-07-10] MEDS: ROFLUMILAST 500 MCG TABLET PO SCH (12:38)
[2018-07-10] MEDS: VENLAFAXINE HCL 75 MG E.R. CAPSULES (FP) PO SCH (12:38)
--- NOTE | 2018-07-10 15:50 | PN ---
Progress Note (short form) - Note Progress Note: ID Consult dictated UTI R axillary soft tissue abscess Fungal rash, perineum Chronic respiratory failure Await c/s Empiric vancomycin/ ceftriaxone Mycolog to perineum
[2018-07-10] MEDS ORDERED: VANCOMYCIN 1,000 MG in DEXTROSE 5%-WATER - 250 ML IVPB SCH (16:00)
--- NOTE | 2018-07-10 16:33 | CONS ---
INFECTIOUS DISEASE CONSULTATION DATE OF CONSULTATION: DATE OF DICTATION: 07/10/2018 HISTORY OF PRESENT ILLNESS: The patient is a 52-year-old female evaluated for a urinary tract infection. The patient has multiple medical comorbidities. She was admitted through the emergency room on July 09, 2018. She had multiple complaints, including back pain, lower extremity pain, nausea, vomiting. She reports receiving an epidural injection for pain relief on July 06, 2018, which provided temporary relief. Her back pain worsened and was associated with episodes of nonbloody, nonbilious vomiting and increased secretions from her tracheostomy site. She also complained of rashes involving the perineal area for which she had been applying A&D ointment. She has had urinary frequency. Denies dysuria or hematuria. PAST MEDICAL HISTORY: Positive for chronic respiratory failure status post tracheostomy, atrial fibrillation, COPD, , CVA, asthma, chronic low back pain, history of ESBL in the urine in the past. PAST SURGICAL HISTORY: Status post appendectomy, hysterectomy, ureteral stents. ALLERGIES: OXYCODONE; ASPIRIN; FENTANYL. SOCIAL HISTORY: Former smoker. She lives in the community. SYSTEMS REVIEW: Neurologic: Positive for stroke. No loss of consciousness, seizure activity or focal weakness. Cardiac: Negative chest pain or palpitations. Positive atrial fibrillation. Respiratory: As per HPI. Gastrointestinal: As per HPI. Genitourinary: Positive for urinary tract infection. LABORATORY DATA: White count on admission 15.0, hematocrit 33.5, platelet count 294. BUN 21, creatinine 0.8. Urinalysis: White cells 16. Blood and urine cultures pending. IMAGING: Chest x-ray negative for acute infiltrate. PHYSICAL EXAMINATION: General: On exam, she is chronically ill appearing, cushingoid. Vital signs: Temperature 98.7, blood pressure 127/84, pulse 110 and regular, respirations 22 per minute. Eyes: Sclerae are anicteric. Throat: Positive tracheostomy. Heart: Heart sounds S1, S2. Lungs: Scattered rhonchi on lung exam. Abdomen: Obese. Soft. Nontender. Extremities: Negative for edema. There is a soft tissue abscess present in the right axilla approximately 1-2 cm in diameter which is tender to touch. A smaller subcutaneous swelling is palpable in the left axilla which is not fluctuant. Skin: There is extensive fungal rash involving the skin folds in the lower abdomen, as well as the perineum. IMPRESSION: 1. Urinary tract infection. 2. Right axillary soft tissue abscess. 3. Fungal rash in the perineum. 4. Chronic respiratory failure. 5. History of extended-spectrum beta-lactamase in the past. PLAN: Await cultures of blood and urine. Empiric antibiotic coverage with vancomycin and ceftriaxone. Mycolog to the perineum. May require surgical consultation for possible incision and drainage of right axillary abscess. Analgesics p.r.n. Thank you for the kind referral. DENISHA ALMANZAR M.D. [id number]
[2018-07-10] MEDS ORDERED: DEXTROSE 5%-WATER - 50 ML IVPB ONE (17:29)
[2018-07-10] MEDS ORDERED: cefTRIAXone SODIUM 1 GM VIAL ONE (17:29)
[2018-07-10] MEDS: INSULIN (NOVOLOG) ASPART 100 UNITS/ML 10ML VIAL SQ SCH ×2 (17:35→21:13)
[2018-07-10] MEDS: VANCOMYCIN 1 GM PREMIX - 1 GM/200 ML BAG IVPB SCH (17:36)
[2018-07-10] MEDS: CEFTRIAXONE 1 GM in DEXTROSE 5%-WATER - 50 ML IVPB SCH (17:36)
--- NOTE | 2018-07-10 19:04 | EKG ---
Test Reason : Blood Pressure : / mmHG Vent. Rate : 107 BPM Atrial Rate : 107 BPM P-R Int : 122 ms QRS Dur : 074 ms QT Int : 322 ms P-R-T Axes : 021 -01 046 degrees QTc Int : 429 ms SINUS TACHYCARDIA WITH PREMATURE ATRIAL COMPLEXES OTHERWISE NORMAL ECG WHEN COMPARED WITH ECG OF 27-JUN-2018 23:13, PREMATURE ATRIAL COMPLEXES ARE NOW PRESENT Confirmed by MD OBDULIO, YADIRA ([id number]) on 07/10/2018 7:04:38 PM Referred By: Confirmed By:YADIRA MAK MD
[2018-07-10] MEDS: NYSTATIN/TRIAMCINOLONE TOPICAL OINTMENT 15 GM TUBE TP SCH (21:12)
[2018-07-10] MEDS: ROSUVASTATIN CA 10 MG TABLET (FP) PO SCH (21:14)
[2018-07-10] MEDS: NORTRIPTYLINE HCL 10 MG CAPSULE PO SCH (21:15)
[2018-07-11] MEDS: VANCOMYCIN 1 GM PREMIX - 1 GM/200 ML BAG IVPB SCH ×2 (04:01→16:47)
[2018-07-11] MEDS: GABAPENTIN 400 MG CAPSULE (FP) PO SCH ×3 (06:31→21:19)
[2018-07-11] MEDS: INSULIN (NOVOLOG) ASPART 100 UNITS/ML 10ML VIAL SQ SCH ×4 (06:31→21:19)
[2018-07-11] MEDS: LEVOTHYROXINE NA 100 MCG TABLET (FP) PO SCH (06:31)
[2018-07-11] MEDS ORDERED: INSULIN (NOVOLOG) ASPART 100 UNITS/ML 10ML VIAL ONE (07:06)
[2018-07-11] MEDS: ONDANSETRON *ODT* 4 MG TABLET SL PRN (08:18)
[2018-07-11] MEDS ORDERED: PT OWN MED DRAWER 7, Y5N ONE ×2 (09:25→20:44)
[2018-07-11] MEDS ORDERED: cefTRIAXone SODIUM 1 GM VIAL ONE (09:26)
[2018-07-11 09:32] LABS: BASO % 0.4 % (0-2.0); EOS % 1.4 % (0-4.5); HEMATOCRIT 31.6 % (32.4-45.2); HEMOGLOBIN 10.1 GM/dL (10.7-15.3); LYMPH % 11.1 % (8-40); MCH 25.8 pg (25.7-33.7); MCHC 31.8 g/dl (32.0-36.0); MEAN CELL VOLUME 80.9 fl (80-96); MEAN PLT VOLUME 9.2 fl (7.5-11.1); MONO % 4.5 % (3.8-10.2); NEUT % 82.6 % (42.8-82.8); PLATELET COUNT 296 K/MM3 (134-434); RBC 3.91 M/mm3 (3.60-5.2); RDW 16.9 % (11.6-15.6); WHITE BLOOD COUNT 11.8 K/mm3 (4.0-10.0)
[2018-07-11] MEDS: CEFTRIAXONE 1 GM in DEXTROSE 5%-WATER - 50 ML IVPB SCH (09:37)
[2018-07-11] MEDS: RIFAXIMIN 550 MG TABLET (UD) PO SCH ×2 (09:37→21:20)
[2018-07-11] MEDS: APIXABAN 5 MG TABLET PO SCH ×2 (09:37→21:18)
[2018-07-11] MEDS: ROFLUMILAST 500 MCG TABLET PO SCH (09:37)
[2018-07-11] MEDS: KETOCONOZOLE 2% TOPICAL CREAM 15 GM TUBE TP SCH (09:38)
[2018-07-11] MEDS: VENLAFAXINE HCL 75 MG E.R. CAPSULES (FP) PO SCH (09:38)
[2018-07-11] MEDS: BACLOFEN 10 MG TABLET (FP) PO SCH ×2 (09:38→21:18)
[2018-07-11] MEDS: predniSONE 10 MG TABLET (UD) PO SCH (09:38)
[2018-07-11] MEDS: ALPRAZolam 0.25 MG TABLET PO SCH ×2 (09:38→21:20)
[2018-07-11] MEDS: NYSTATIN/TRIAMCINOLONE TOPICAL OINTMENT 15 GM TUBE TP SCH ×2 (09:42→21:19)
[2018-07-11] MEDS ORDERED: FLUCONAZOLE 50 MG TABLET PO ONE (09:43)
[2018-07-11 09:57] LABS: ALBUMIN 2.7 g/dl (3.4-5.0); ANION GAP 12 (8-16); BILIRUBIN,TOTAL 0.2 mg/dL (0.2-1.0); BLOOD UREA NITROGEN 20 mg/dL (7-18); CALCIUM 8.2 mg/dL (8.5-10.1); CHLORIDE 100 mmol/L (98-107); CO2 27 mmol/L (21-32); CREATININE 0.6 mg/dL (0.55-1.02); GLUCOSE,RANDOM 193 mg/dL (74-106); POTASSIUM 4.1 mmol/L (3.5-5.1); SGOT/AST 18 U/L (15-37); SODIUM 139 mmol/L (136-145)
[2018-07-11 10:01] LABS: ALK PHOS 103 U/L (45-117); SGPT/ALT 34 U/L (12-78)
[2018-07-11] MEDS ORDERED: FLUCONAZOLE 150 MG TABLET PO ONE (11:00)
--- NOTE | 2018-07-11 11:58 | PN ---
Progress Note (short form) - Note Progress Note: PULMONARY WELL KNOWN BY OUR SERVICE VSS/AFEBRILE ANICTERIC/CUSHINOID MINIMAL B/L END EXP WHEEZE S1S2 BS+ OBESE NO EDEMA LABS/MEDS/NOTES/IMAGES REVIEWED - Problems (1) Abdominal pain Code(s): R10.9 - UNSPECIFIED ABDOMINAL PAIN (2) Acute and chronic respiratory failure with hypoxia Code(s): J96.21 - ACUTE AND CHRONIC RESPIRATORY FAILURE WITH HYPOXIA (3) Acute on chronic respiratory failure with hypoxia and hypercapnia Code(s): J96.21 - ACUTE AND CHRONIC RESPIRATORY FAILURE WITH HYPOXIA; J96.22 - ACUTE AND CHRONIC RESPIRATORY FAILURE WITH HYPERCAPNIA TREATMENT FOR POLYMICROBIAL UTI UNDERWAY CONTINUE O2/BRONCHODILATORS/PRED BASIC TRACH CARE RESP STATUS IS STABLE Problem List - Problems (1) Abdominal pain Code(s): R10.9 - UNSPECIFIED ABDOMINAL PAIN (2) Acute and chronic respiratory failure with hypoxia Code(s): J96.21 - ACUTE AND CHRONIC RESPIRATORY FAILURE WITH HYPOXIA (3) Acute on chronic respiratory failure with hypoxia and hypercapnia Code(s): J96.21 - ACUTE AND CHRONIC RESPIRATORY FAILURE WITH HYPOXIA; J96.22 - ACUTE AND CHRONIC RESPIRATORY FAILURE WITH HYPERCAPNIA
--- NOTE | 2018-07-11 13:07 | PN ---
Progress Note, Physician History of Present Illness: 52-year-old female with past medical history of AFib (Paroxysmal), HTN, HLD, COPD O2 dependent, Uterine CA stents/Titus in the past, Osteomyelitis of the thoracic spine, chronic back pain (since 2012) and DM presents to the emergency department with multiple complain. The patient reports a baseline history of chronic back pain, states on the 06 of July she had multiple injections to the mid-back by a pain management doctor, unable to recall details. The patient states s/p the injection patient did have relief but states the pain did flare up again. The patient states the back pain is associated with episodes of nausea and nonbilious-bloody emesis and increased secretion with coughing. The patient reports a prior diagnosis of gastroparesis, states the symptoms feels similar to a flare-up. Denies shortness of breath. - Current Medication List Current Medications: Active Medications Acetaminophen (Tylenol -) 650 mg PO Q6H PRN PRN Reason: PAIN OR FEVER Last Admin: 07/10/18 11:29 Dose: 650 mg Albuterol/Ipratropium (Duoneb -) 1 amp NEB Q6H PRN PRN Reason: SHORTNESS OF BREATH Alprazolam (Xanax -) 0.25 mg PO BID [facility] Last Admin: 07/11/18 09:38 Dose: 0.25 mg Apixaban (Eliquis -) 5 mg PO BID [facility] Last Admin: 07/11/18 09:37 Dose: 5 mg Baclofen (Lioresal -) 30 mg PO BID [facility] Last Admin: 07/11/18 09:38 Dose: 30 mg Diltiazem HCl (Cardizem Cd -) 240 mg PO DAILY [facility] Last Admin: 07/11/18 09:38 Dose: 240 mg Docusate Sodium (Colace -) 100 mg PO BID PRN PRN Reason: CONSTIPATION Gabapentin (Neurontin -) 400 mg PO TID [facility] Last Admin: 07/11/18 13:00 Dose: 400 mg Hydromorphone HCl (Dilaudid -) 4 mg PO Q6H PRN PRN Reason: PAIN LEVEL 7 - 10 Last Admin: 07/11/18 13:00 Dose: 4 mg Ceftriaxone Sodium 1 gm/ (Dextrose) 50 mls @ 100 mls/hr IVPB DAILY [facility]; Protocol Last Admin: 07/11/18 09:37 Dose: 100 mls/hr Vancomycin HCl (Vancomycin 1 Gm Premix -) 1 gm in 200 mls @ 166.667 mls/hr IVPB Q12H [facility]; Protocol Last Admin: 07/11/18 04:01 Dose: 166.667 mls/hr Insulin Aspart (Novolog Vial) 0 units SQ ACHS [facility]; Protocol Last Admin: 07/11/18 12:14 Dose: Not Given Ketoconazole (Nizoral 2% Cream -) 1 applic TP DAILY [facility] Last Admin: 07/11/18 09:38 Dose: 1 applic Levothyroxine Sodium (Synthroid -) 300 mcg PO DAILY@0700 [facility] Last Admin: 07/11/18 06:31 Dose: 300 mcg Nortriptyline HCl (Pamelor -) 10 mg PO HS [facility] Last Admin: 07/10/18 21:15 Dose: 10 mg Nystatin/Triamcinolone Acetonide (Mycolog Ii Ointment -) 1 applic TP BID [facility] Last Admin: 07/11/18 09:42 Dose: 1 applic Ondansetron HCl (Zofran Odt -) 4 mg SL Q6H PRN PRN Reason: NAUSEA AND/OR VOMITING Last Admin: 07/11/18 08:18 Dose: 4 mg Prednisone (Deltasone -) 10 mg PO DAILY [facility] Last Admin: 07/11/18 09:38 Dose: 10 mg Rifaximin (Xifaxan -) 550 mg PO BID [facility] Last Admin: 07/11/18 09:37 Dose: 550 mg Roflumilast (Daliresp -) 500 mcg PO DAILY [facility] Last Admin: 07/11/18 09:37 Dose: 500 mcg Rosuvastatin Calcium (Crestor -) 10 mg PO HS [facility] Last Admin: 07/10/18 21:14 Dose: 10 mg Venlafaxine HCl (Effexor Xr -) 75 mg PO DAILY [facility] Last Admin: 07/11/18 09:38 Dose: 75 mg - Objective Vital Signs: Vital Signs Temperature 97.8 F 07/11/18 09:34 Pulse Rate 105 H 07/11/18 09:34 Respiratory Rate 19 07/11/18 09:34 Blood Pressure 122/80 07/11/18 09:34 O2 Sat by Pulse Oximetry (%) 97 08/18/18 21:00 Cardiovascular: Yes: S1, S2 Respiratory: Yes: Regular, CTA Bilaterally Gastrointestinal: Yes: Normal Bowel Sounds, Soft Integumentary: Yes: Other (abscess under rt axilla cyst left axilla) Labs: CBC, BMP 07/11/18 09:15 07/11/18 09:15 Problem List - Problems (1) Leukocytosis Assessment/Plan: -Afebrile -cultures noted--ID consult -abx for abscess Code(s): D72.829 - ELEVATED WHITE BLOOD CELL COUNT, UNSPECIFIED (2) UTI (urinary tract infection) Assessment/Plan: Microbiology 07/09/18 10:23 Urine Culture - Preliminary Urine - Urine Clean Catch Proteus Species Group D Strep Or Entero Coccus Code(s): N39.0 - URINARY TRACT INFECTION, SITE NOT SPECIFIED (3) Respiratory failure Assessment/Plan: nebs -trach collar Code(s): J96.90 - RESPIRATORY FAILURE, UNSP, UNSP W HYPOXIA OR HYPERCAPNIA (4) Afib Assessment/Plan: -on eliquis Code(s): I48.91 - UNSPECIFIED ATRIAL FIBRILLATION (5) COPD (chronic obstructive pulmonary disease) Assessment/Plan: -nebs -pulm Code(s): J44.9 - CHRONIC OBSTRUCTIVE PULMONARY DISEASE, UNSPECIFIED Qualifiers: COPD type: unspecified COPD Qualified Code(s): J44.9 - Chronic obstructive pulmonary disease, unspecified (6) Diabetes mellitus Assessment/Plan: bgm Code(s): E11.9 - TYPE 2 DIABETES MELLITUS WITHOUT COMPLICATIONS Qualifiers: Diabetes mellitus type: type 2 (7) Nausea and vomiting Assessment/Plan: -resolved -diet -monitor -ct nad Code(s): R11.2 - NAUSEA WITH VOMITING, UNSPECIFIED Qualifiers: Vomiting type: unspecified Vomiting Intractability: unspecified Qualified Code(s): R11.2 - Nausea with vomiting, unspecified (8) Abscess Assessment/Plan: -Local care =ABX Code(s): L02.91 - CUTANEOUS ABSCESS, UNSPECIFIED
[2018-07-11] MEDS: ROSUVASTATIN CA 10 MG TABLET (FP) PO SCH (21:18)
[2018-07-11] MEDS: NORTRIPTYLINE HCL 10 MG CAPSULE PO SCH (21:20)
[2018-07-12] MEDS: VANCOMYCIN 1 GM PREMIX - 1 GM/200 ML BAG IVPB SCH ×2 (03:34→17:13)
[2018-07-12] MEDS ORDERED: PT OWN MED DRAWER 7, Y5N ONE ×3 (06:09→09:13)
[2018-07-12] MEDS: INSULIN (NOVOLOG) ASPART 100 UNITS/ML 10ML VIAL SQ SCH ×4 (06:37→22:26)
[2018-07-12] MEDS: GABAPENTIN 400 MG CAPSULE (FP) PO SCH ×3 (06:38→22:24)
[2018-07-12] MEDS: LEVOTHYROXINE NA 100 MCG TABLET (FP) PO SCH (06:38)
[2018-07-12] MEDS ORDERED: INSULIN (NOVOLOG) ASPART 100 UNITS/ML 10ML VIAL ONE ×2 (07:00→11:54)
[2018-07-12] MEDS ORDERED: DEXTROSE 5%-WATER - 50 ML IVPB ONE (09:13)
[2018-07-12] MEDS ORDERED: cefTRIAXone SODIUM 1 GM VIAL ONE (09:13)
[2018-07-12] MEDS: APIXABAN 5 MG TABLET PO SCH ×2 (09:19→22:24)
[2018-07-12] MEDS: CEFTRIAXONE 1 GM in DEXTROSE 5%-WATER - 50 ML IVPB SCH (09:19)
[2018-07-12] MEDS: BACLOFEN 10 MG TABLET (FP) PO SCH ×2 (09:19→22:24)
[2018-07-12] MEDS: ALPRAZolam 0.25 MG TABLET PO SCH ×2 (09:19→22:25)
[2018-07-12] MEDS: predniSONE 10 MG TABLET (UD) PO SCH (09:19)
[2018-07-12] MEDS: RIFAXIMIN 550 MG TABLET (UD) PO SCH ×2 (09:20→22:25)
[2018-07-12] MEDS: VENLAFAXINE HCL 75 MG E.R. CAPSULES (FP) PO SCH (09:20)
[2018-07-12] MEDS: ROFLUMILAST 500 MCG TABLET PO SCH (09:20)
[2018-07-12] MEDS: NYSTATIN/TRIAMCINOLONE TOPICAL OINTMENT 15 GM TUBE TP SCH ×2 (09:21→22:25)
[2018-07-12] MEDS: KETOCONOZOLE 2% TOPICAL CREAM 15 GM TUBE TP SCH (09:21)
[2018-07-12] MEDS: ONDANSETRON *ODT* 4 MG TABLET SL PRN (09:26)
--- NOTE | 2018-07-12 11:26 | PN ---
Progress Note, Physician Chief Complaint: Nause/Vomiting UTI History of Present Illness: -NAD UC preliminary: Microbiology 07/09/18 13:05 Blood Culture - Preliminary Blood - Peripheral Venous NO GROWTH OBTAINED AFTER 48 HOURS, INCUBATION TO CONTINUE FOR 3 DAYS. 07/09/18 13:05 Blood Culture - Preliminary Blood - Peripheral Venous NO GROWTH OBTAINED AFTER 48 HOURS, INCUBATION TO CONTINUE FOR 3 DAYS. 07/09/18 10:23 Urine Culture - Preliminary Urine - Urine Clean Catch Escherichia Coli Group D Strep Or Entero Coccus Staphylococcus Species Proteus Species -On IV rocephin -Seen by ID Patient Name: Bonita Figueroa Date: 1965 Address: [facility] [place] [address] Sex: Female Rx Written Rx Dispensed Drug Quantity Days Supply Prescriber Name 07/07/2018 07/09/2018 zolpidem tartrate 10 mg tablet 6 6 Do Martinez MD 07/07/2018 07/09/2018 alprazolam 0.25 mg tablet 21 7 Do Martinez MD 06/23/2018 06/24/2018 zolpidem tartrate 10 mg tablet 7 7 Do Martinez MD 06/23/2018 06/24/2018 alprazolam 0.25 mg tablet 24 8 Do Martinez MD 06/16/2018 06/17/2018 zolpidem tartrate 10 mg tablet 7 7 Do Martinez MD 06/16/2018 06/17/2018 alprazolam 0.25 mg tablet 24 8 Do Martinez MD 06/14/2018 06/15/2018 hydromorphone 4 mg tablet 120 30 Ector Lynne M 06/11/2018 06/11/2018 zolpidem tartrate 10 mg tablet 7 7 Do Martinez MD 06/11/2018 06/11/2018 alprazolam 0.25 mg tablet 24 8 Do Martinez MD 06/02/2018 06/03/2018 alprazolam 0.25 mg tablet 24 8 Do Martinez MD 06/02/2018 06/03/2018 zolpidem tartrate 10 mg tablet 7 7 Do Martinez MD 06/02/2018 06/03/2018 zaleplon 10 mg capsule 7 7 Do Martinez MD 05/12/2018 05/27/2018 alprazolam 0.25 mg tablet 24 8 Do Martinez MD 05/25/2018 05/27/2018 zaleplon 10 mg capsule 8 8 Do Martinez MD 05/19/2018 05/20/2018 alprazolam 0.25 mg tablet 24 8 Do Martinez MD 05/19/2018 05/20/2018 zaleplon 10 mg capsule 8 8 Do Martinez MD 05/11/2018 05/12/2018 hydromorphone 4 mg tablet 120 30 Elzholz, Ector 05/05/2018 05/12/2018 alprazolam 0.25 mg tablet 24 8 Do Martinez MD 05/12/2018 05/12/2018 zaleplon 10 mg capsule 8 8 Do Martinez MD 04/27/2018 05/08/2018 alprazolam 0.25 mg tablet 21 7 Do Martinez MD 05/05/2018 05/08/2018 zolpidem tartrate 10 mg tablet 7 7 Do Martinez MD 04/27/2018 04/27/2018 zaleplon 10 mg capsule 8 8 Do Martinez MD 04/27/2018 04/27/2018 alprazolam 0.25 mg tablet 24 8 Do Martinez MD 04/20/2018 04/20/2018 alprazolam 0.25 mg tablet 21 7 Do Martinez MD 04/20/2018 04/20/2018 zaleplon 10 mg capsule 7 7 Do Martinez MD 04/13/2018 04/15/2018 alprazolam 0.25 mg tablet 30 8 Do Martinez MD 04/10/2018 04/13/2018 hydromorphone 4 mg tablet 120 30 Elzholz, Ector 04/08/2018 04/08/2018 zolpidem tartrate 10 mg tablet 7 7 Do Martinez MD 04/08/2018 04/08/2018 alprazolam 0.25 mg tablet 21 7 Do Martinez MD 03/17/2018 03/17/2018 hydromorphone 4 mg tablet 120 30 Cecilia Weston 03/17/2018 03/17/2018 alprazolam 0.5 mg tablet 60 30 Cecilia Weston - Current Medication List Current Medications: Active Medications Acetaminophen (Tylenol -) 650 mg PO Q6H PRN PRN Reason: PAIN OR FEVER Last Admin: 07/10/18 11:29 Dose: 650 mg Albuterol/Ipratropium (Duoneb -) 1 amp NEB Q6H PRN PRN Reason: SHORTNESS OF BREATH Alprazolam (Xanax -) 0.25 mg PO BID [facility] Last Admin: 07/12/18 09:19 Dose: 0.25 mg Apixaban (Eliquis -) 5 mg PO BID [facility] Last Admin: 07/12/18 09:19 Dose: 5 mg Baclofen (Lioresal -) 30 mg PO BID [facility] Last Admin: 07/12/18 09:19 Dose: 30 mg Diltiazem HCl (Cardizem Cd -) 240 mg PO DAILY [facility] Last Admin: 07/12/18 09:19 Dose: 240 mg Docusate Sodium (Colace -) 100 mg PO BID PRN PRN Reason: CONSTIPATION Gabapentin (Neurontin -) 400 mg PO TID [facility] Last Admin: 07/12/18 06:38 Dose: 400 mg Hydromorphone HCl (Dilaudid -) 4 mg PO Q6H PRN PRN Reason: PAIN LEVEL 7 - 10 Last Admin: 07/12/18 04:50 Dose: 4 mg Ceftriaxone Sodium 1 gm/ (Dextrose) 50 mls @ 100 mls/hr IVPB DAILY [facility]; Protocol Last Admin: 07/12/18 09:19 Dose: 100 mls/hr Vancomycin HCl (Vancomycin 1 Gm Premix -) 1 gm in 200 mls @ 166.667 mls/hr IVPB Q12H [facility]; Protocol Last Admin: 07/12/18 03:34 Dose: 166.667 mls/hr Insulin Aspart (Novolog Vial) 0 units SQ ACHS [facility]; Protocol Last Admin: 07/12/18 06:37 Dose: 5 units Ketoconazole (Nizoral 2% Cream -) 1 applic TP DAILY [facility] Last Admin: 07/12/18 09:21 Dose: 1 applic Levothyroxine Sodium (Synthroid -) 300 mcg PO DAILY@0700 [facility] Last Admin: 07/12/18 06:38 Dose: 300 mcg Nortriptyline HCl (Pamelor -) 10 mg PO HS [facility] Last Admin: 07/11/18 21:20 Dose: 10 mg Nystatin/Triamcinolone Acetonide (Mycolog Ii Ointment -) 1 applic TP BID [facility] Last Admin: 07/12/18 09:21 Dose: 1 applic Ondansetron HCl (Zofran Odt -) 4 mg SL Q6H PRN PRN Reason: NAUSEA AND/OR VOMITING Last Admin: 07/12/18 09:26 Dose: 4 mg Prednisone (Deltasone -) 10 mg PO DAILY [facility] Last Admin: 07/12/18 09:19 Dose: 10 mg Rifaximin (Xifaxan -) 550 mg PO BID [facility] Last Admin: 07/12/18 09:20 Dose: 550 mg Roflumilast (Daliresp -) 500 mcg PO DAILY [facility] Last Admin: 07/12/18 09:20 Dose: 500 mcg Rosuvastatin Calcium (Crestor -) 10 mg PO [facility] Last Admin: 07/11/18 21:18 Dose: 10 mg Venlafaxine HCl (Effexor Xr -) 75 mg PO DAILY [facility] Last Admin: 07/12/18 09:20 Dose: 75 mg - Objective Vital Signs: Vital Signs Temperature 98.9 F 07/12/18 06:00 Pulse Rate 108 H 07/12/18 08:15 Respiratory Rate 20 07/12/18 06:00 Blood Pressure 147/72 07/12/18 06:00 O2 Sat by Pulse Oximetry (%) 97 07/12/18 08:15 Constitutional: Yes: Well Nourished, No Distress, Calm Cardiovascular: Yes: Regular Rate and Rhythm Respiratory: Yes: Regular Gastrointestinal: Yes: Normal Bowel Sounds, Soft Genitourinary: Yes: Incontinence Musculoskeletal: Yes: WNL Extremities: Yes: WNL Edema: No Peripheral Pulses WNL: Yes Neurological: Yes: Alert, Oriented Psychiatric: Yes: Alert, Oriented Labs: CBC, BMP 07/11/18 09:15 07/11/18 09:15 Problem List - Problems (1) Leukocytosis Assessment/Plan: -improving -afebrile -On IV meropenem -ID on board -Also on Prednisone Code(s): D72.829 - ELEVATED WHITE BLOOD CELL COUNT, UNSPECIFIED (2) UTI (urinary tract infection) Assessment/Plan: -UC preliminary: Microbiology 07/09/18 10:23 Urine - Urine Clean Catch Urine Culture - Preliminary Escherichia Coli Group D Strep Or Entero Coccus Staphylococcus Coagulase Neg Proteus Mirabilis 07/09/18 13:05 Blood - Peripheral Venous Blood Culture - Preliminary NO GROWTH OBTAINED AFTER 48 HOURS, INCUBATION TO CONTINUE FOR 3 DAYS. 07/09/18 13:05 Blood - Peripheral Venous Blood Culture - Preliminary NO GROWTH OBTAINED AFTER 48 HOURS, INCUBATION TO CONTINUE FOR 3 DAYS. -IV meropenem -ID consult Code(s): N39.0 - URINARY TRACT INFECTION, SITE NOT SPECIFIED (3) Nausea and vomiting Assessment/Plan: -resolved Code(s): R11.2 - NAUSEA WITH VOMITING, UNSPECIFIED Qualifiers: Vomiting type: unspecified Vomiting Intractability: unspecified Qualified Code(s): R11.2 - Nausea with vomiting, unspecified (4) Anemia Assessment/Plan: -Check Stool OB, Iron,Thyroid profile and B 12 -Monitor H/H -Normal transfusion parameters, transfuse for Hg below 8.0 Code(s): D64.9 - ANEMIA, UNSPECIFIED (5) Diabetes mellitus Assessment/Plan: -Last A1c 11.2 -On no oral hypoglycemics outpatient -BGM AC HS -Diabetic diet -Novolog sliding scale -RD consult -Endocrinology consult -Start Januvia 100 mg po daily in AM Code(s): E11.9 - TYPE 2 DIABETES MELLITUS WITHOUT COMPLICATIONS Qualifiers: Diabetes mellitus type: type 2 (6) Afib Assessment/Plan: -chronic -On eliquis Code(s): I48.91 - UNSPECIFIED ATRIAL FIBRILLATION (7) Anxiety Assessment/Plan: -Continue home meds -Psychotherapy + Psychiatry consult Code(s): F41.9 - ANXIETY DISORDER, UNSPECIFIED (8) Chronic pain disorder Assessment/Plan: -On hydromorphone -Pain management consult Code(s): G89.4 - CHRONIC PAIN SYNDROME Assessment/Plan see problem list Physical therapy
[2018-07-12 12:51] LABS: BASO % 0.9 % (0-2.0); EOS % 1.6 % (0-4.5); HEMATOCRIT 32.6 % (32.4-45.2); HEMOGLOBIN 10.3 GM/dL (10.7-15.3); LYMPH % 9.4 % (8-40); MCH 25.7 pg (25.7-33.7); MCHC 31.7 g/dl (32.0-36.0); MEAN PLT VOLUME 9.2 fl (7.5-11.1); NEUT % 83.1 % (42.8-82.8); PLATELET COUNT 291 K/MM3 (134-434); RBC 4.03 M/mm3 (3.60-5.2); RDW 16.8 % (11.6-15.6); WHITE BLOOD COUNT 13.6 K/mm3 (4.0-10.0)
[2018-07-12 13:22] LABS: ALBUMIN 2.9 g/dl (3.4-5.0); ANION GAP 10 (8-16); BLOOD UREA NITROGEN 19 mg/dL (7-18); CALCIUM 8.6 mg/dL (8.5-10.1); CHLORIDE 99 mmol/L (98-107); CO2 29 mmol/L (21-32); GLUCOSE,RANDOM 157 mg/dL (74-106); POTASSIUM 4.4 mmol/L (3.5-5.1); SODIUM 138 mmol/L (136-145)
--- NOTE | 2018-07-12 13:38 | PN ---
Progress Note, Physician History of Present Illness: Awake , alert Supine in bed C/O urinary frequency Reports ST abscess R axilla spontaneously ruptured Afebrile WBC improved - Current Medication List Current Medications: Active Medications Acetaminophen (Tylenol -) 650 mg PO Q6H PRN PRN Reason: PAIN OR FEVER Last Admin: 07/10/18 11:29 Dose: 650 mg Albuterol/Ipratropium (Duoneb -) 1 amp NEB Q6H PRN PRN Reason: SHORTNESS OF BREATH Alprazolam (Xanax -) 0.25 mg PO BID [facility] Last Admin: 07/12/18 09:19 Dose: 0.25 mg Apixaban (Eliquis -) 5 mg PO BID [facility] Last Admin: 07/12/18 09:19 Dose: 5 mg Baclofen (Lioresal -) 30 mg PO BID [facility] Last Admin: 07/12/18 09:19 Dose: 30 mg Diltiazem HCl (Cardizem Cd -) 240 mg PO DAILY [facility] Last Admin: 07/12/18 09:19 Dose: 240 mg Docusate Sodium (Colace -) 100 mg PO BID PRN PRN Reason: CONSTIPATION Gabapentin (Neurontin -) 400 mg PO TID [facility] Last Admin: 07/12/18 06:38 Dose: 400 mg Hydromorphone HCl (Dilaudid -) 4 mg PO Q6H PRN PRN Reason: PAIN LEVEL 7 - 10 Last Admin: 07/12/18 04:50 Dose: 4 mg Ceftriaxone Sodium 1 gm/ (Dextrose) 50 mls @ 100 mls/hr IVPB DAILY [facility]; Protocol Last Admin: 07/12/18 09:19 Dose: 100 mls/hr Vancomycin HCl (Vancomycin 1 Gm Premix -) 1 gm in 200 mls @ 166.667 mls/hr IVPB Q12H [facility]; Protocol Last Admin: 07/12/18 03:34 Dose: 166.667 mls/hr Insulin Aspart (Novolog Vial) 0 units SQ ACHS [facility]; Protocol Last Admin: 07/12/18 12:12 Dose: Not Given Ketoconazole (Nizoral 2% Cream -) 1 applic TP DAILY [facility] Last Admin: 07/12/18 09:21 Dose: 1 applic Levothyroxine Sodium (Synthroid -) 300 mcg PO DAILY@0700 [facility] Last Admin: 07/12/18 06:38 Dose: 300 mcg Non-Formulary Medication (Patient's Own Med) 1 each PO DAILY [facility] Nortriptyline HCl (Pamelor -) 10 mg PO HS [facility] Last Admin: 07/11/18 21:20 Dose: 10 mg Nystatin/Triamcinolone Acetonide (Mycolog Ii Ointment -) 1 applic TP BID [facility] Last Admin: 07/12/18 09:21 Dose: 1 applic Ondansetron HCl (Zofran Odt -) 4 mg SL Q6H PRN PRN Reason: NAUSEA AND/OR VOMITING Last Admin: 07/12/18 09:26 Dose: 4 mg Prednisone (Deltasone -) 10 mg PO DAILY [facility] Last Admin: 07/12/18 09:19 Dose: 10 mg Rifaximin (Xifaxan -) 550 mg PO BID [facility] Last Admin: 07/12/18 09:20 Dose: 550 mg Roflumilast (Daliresp -) 500 mcg PO DAILY [facility] Last Admin: 07/12/18 09:20 Dose: 500 mcg Rosuvastatin Calcium (Crestor -) 10 mg PO HS [facility] Last Admin: 07/11/18 21:18 Dose: 10 mg Sitagliptin Phosphate (Januvia -) 100 mg PO DAILY@0700 [facility] Venlafaxine HCl (Effexor Xr -) 75 mg PO DAILY [facility] Last Admin: 07/12/18 09:20 Dose: 75 mg Zolpidem Tartrate (Ambien -) 5 mg PO HS PRN PRN Reason: INSOMNIA - Objective Vital Signs: Vital Signs Temperature 98.1 F 07/12/18 10:00 Pulse Rate 109 H 07/12/18 10:00 Respiratory Rate 18 07/12/18 10:00 Blood Pressure 123/76 07/12/18 10:00 O2 Sat by Pulse Oximetry (%) 97 07/12/18 08:15 Constitutional: Yes: No Distress, Obese Eyes: Yes: Conjunctiva Clear Cardiovascular: Yes: Regular Rate and Rhythm, S1, S2 Respiratory: Yes: CTA Bilaterally Gastrointestinal: Yes: Normal Bowel Sounds, Soft, Abdomen, Obese. No: Tenderness Extremities: Yes: Other (R axillary ST abscess ruptured No drainage noted) Labs: CBC, BMP 07/12/18 12:10 Assessment/Plan UTI S/P spontaneous drainage R axillary ST abscess Chronic respiratory failure Fungal rash, perineum Substitute po keflex 500mg q8h x 7d next 24h
[2018-07-12 13:50] LABS: ALK PHOS 108 U/L (45-117); BILIRUBIN,TOTAL 0.2 mg/dL (0.2-1.0); CREATININE 0.7 mg/dL (0.55-1.02); SGOT/AST 16 U/L (15-37); SGPT/ALT 35 U/L (12-78); TOT PROT 6.5 g/dl (6.4-8.2)
[2018-07-12] MEDS ORDERED: predniSONE 5 MG TABLET (UD) PO SCH (14:25)
--- NOTE | 2018-07-12 14:25 | PN ---
Progress Note (short form) - Note Progress Note: Breathing feels stable in Trach collar. GI symptoms resolving. No acute events overnight. Some cough (has chronic bronchitis). Intake & Output 07/09/18 07/10/18 07/11/18 07/12/18 23:59 23:59 23:59 23:59 Intake Total 350 1340 1180 200 Balance 350 1340 1180 200 Weight 161 lb 9.6 oz Last Vital Signs Temp Pulse Resp BP Pulse Ox 98.1 F 109 H 18 123/76 97 07/12/18 10:00 07/12/18 10:00 07/12/18 10:00 07/12/18 10:00 07/12/18 08:15 Active Medications Acetaminophen (Tylenol -) 650 mg PO Q6H PRN PRN Reason: PAIN OR FEVER Last Admin: 07/10/18 11:29 Dose: 650 mg Albuterol/Ipratropium (Duoneb -) 1 amp NEB Q6H PRN PRN Reason: SHORTNESS OF BREATH Alprazolam (Xanax -) 0.25 mg PO BID [facility] Last Admin: 07/12/18 09:19 Dose: 0.25 mg Apixaban (Eliquis -) 5 mg PO BID [facility] Last Admin: 07/12/18 09:19 Dose: 5 mg Baclofen (Lioresal -) 30 mg PO BID [facility] Last Admin: 07/12/18 09:19 Dose: 30 mg Diltiazem HCl (Cardizem Cd -) 240 mg PO DAILY [facility] Last Admin: 07/12/18 09:19 Dose: 240 mg Docusate Sodium (Colace -) 100 mg PO BID PRN PRN Reason: CONSTIPATION Gabapentin (Neurontin -) 400 mg PO TID [facility] Last Admin: 07/12/18 06:38 Dose: 400 mg Hydromorphone HCl (Dilaudid -) 4 mg PO Q6H PRN PRN Reason: PAIN LEVEL 7 - 10 Last Admin: 07/12/18 04:50 Dose: 4 mg Ceftriaxone Sodium 1 gm/ (Dextrose) 50 mls @ 100 mls/hr IVPB DAILY [facility]; Protocol Last Admin: 07/12/18 09:19 Dose: 100 mls/hr Vancomycin HCl (Vancomycin 1 Gm Premix -) 1 gm in 200 mls @ 166.667 mls/hr IVPB Q12H [facility]; Protocol Last Admin: 07/12/18 03:34 Dose: 166.667 mls/hr Insulin Aspart (Novolog Vial) 0 units SQ ACHS [facility]; Protocol Last Admin: 07/12/18 12:12 Dose: Not Given Ketoconazole (Nizoral 2% Cream -) 1 applic TP DAILY [facility] Last Admin: 07/12/18 09:21 Dose: 1 applic Levothyroxine Sodium (Synthroid -) 300 mcg PO DAILY@0700 [facility] Last Admin: 07/12/18 06:38 Dose: 300 mcg Non-Formulary Medication (Patient's Own Med) 1 each PO DAILY [facility] Nortriptyline HCl (Pamelor -) 10 mg PO HS [facility] Last Admin: 07/11/18 21:20 Dose: 10 mg Nystatin/Triamcinolone Acetonide (Mycolog Ii Ointment -) 1 applic TP BID [facility] Last Admin: 07/12/18 09:21 Dose: 1 applic Ondansetron HCl (Zofran Odt -) 4 mg SL Q6H PRN PRN Reason: NAUSEA AND/OR VOMITING Last Admin: 07/12/18 09:26 Dose: 4 mg Prednisone (Deltasone -) 10 mg PO DAILY [facility] Last Admin: 07/12/18 09:19 Dose: 10 mg Rifaximin (Xifaxan -) 550 mg PO BID [facility] Last Admin: 07/12/18 09:20 Dose: 550 mg Roflumilast (Daliresp -) 500 mcg PO DAILY [facility] Last Admin: 07/12/18 09:20 Dose: 500 mcg Rosuvastatin Calcium (Crestor -) 10 mg PO HS [facility] Last Admin: 07/11/18 21:18 Dose: 10 mg Sitagliptin Phosphate (Januvia -) 100 mg PO DAILY@0700 [facility] Venlafaxine HCl (Effexor Xr -) 75 mg PO DAILY [facility] Last Admin: 07/12/18 09:20 Dose: 75 mg Zolpidem Tartrate (Ambien -) 5 mg PO HS PRN PRN Reason: INSOMNIA General: NAD on Trach collar O2 Cardiovascular: Yes: S1, S2 Respiratory: Yes: Regular, CTA Bilaterally Gastrointestinal: Yes: Normal Bowel Sounds, Soft Integumentary: Yes: erythema left axilla Labs: Laboratory Results - last 24 hr 07/11/18 07/11/1807/12/18 16:44 21:10 06:33 WBC RBC Hgb Hct MCV MCH MCHC RDW Plt Count MPV Absolute Neuts (auto) Neutrophils % Lymphocytes % Monocytes % Eosinophils % Basophils % Nucleated RBC % Sodium Potassium Chloride Carbon Dioxide Anion Gap BUN Creatinine Creat Clearance w eGFR POC Glucometer 353 284 252 Random Glucose Calcium Ferritin Total Bilirubin AST ALT Alkaline Phosphatase Total Protein Albumin Vitamin B12 TSH Free T4 07/12/18 07/12/18 07/12/18 12:10 12:10 12:11 WBC 13.6 H RBC 4.03 Hgb 10.3 L Hct 32.6 MCV 81.0 MCH 25.7 MCHC 31.7 L RDW 16.8 H Plt Count 291 MPV 9.2 Absolute Neuts (auto) 11.3 H Neutrophils % 83.1 H Lymphocytes % 9.4 Monocytes % 5.0 Eosinophils % 1.6 Basophils % 0.9 Nucleated RBC % 0 Sodium 138 Potassium 4.4 Chloride 99 Carbon Dioxide 29 Anion Gap 10 BUN 19 H Creatinine 0.7 Creat Clearance w eGFR > 60 POC Glucometer 167 Random Glucose 157 H Calcium 8.6 Ferritin 41.6 Total Bilirubin 0.2 AST 16 ALT 35 Alkaline Phosphatase 108 Total Protein 6.5 Albumin 2.9 L Vitamin B12 634 TSH 0.64 Free T4 1.68 H Problem List - Problems (1) Leukocytosis Assessment/Plan: Code(s): D72.829 - ELEVATED WHITE BLOOD CELL COUNT, UNSPECIFIED (2) UTI (urinary tract infection) Assessment/Plan: Code(s): N39.0 - URINARY TRACT INFECTION, SITE NOT SPECIFIED (3) Respiratory failure Assessment/Plan: Code(s): J96.90 - RESPIRATORY FAILURE, UNSP, UNSP W HYPOXIA OR HYPERCAPNIA (4) Afib Assessment/Plan: Code(s): I48.91 - UNSPECIFIED ATRIAL FIBRILLATION (5) COPD (chronic obstructive pulmonary disease) Assessment/Plan: Code(s): J44.9 - CHRONIC OBSTRUCTIVE PULMONARY DISEASE, UNSPECIFIED Qualifiers: COPD type: unspecified COPD Qualified Code(s): J44.9 - Chronic obstructive pulmonary disease, unspecified (6) Diabetes mellitus Assessment/Plan: Code(s): E11.9 - TYPE 2 DIABETES MELLITUS WITHOUT COMPLICATIONS Qualifiers: Diabetes mellitus type: type 2 (7) Nausea and vomiting Assessment/Plan: Code(s): R11.2 - NAUSEA WITH VOMITING, UNSPECIFIED Qualifiers: Vomiting type: unspecified Vomiting Intractability: unspecified Qualified Code(s): R11.2 - Nausea with vomiting, unspecified (8) Abscess Assessment/Plan: Code(s): L02.91 - CUTANEOUS ABSCESS, UNSPECIFIED PLAN: ABX per ID BD TX PRN Trach collar O2 Local wound care Patient has been taking Prednisone 10mg OD for months. Would try to taper. Would D/C on 7.5mg OD and attempt further taper as an outpatient Dr Castaneda
[2018-07-12] MEDS: sitaGLIPtin PHOSPHATE 100 MG TABLET (FP) PO SCH (14:35)
--- NOTE | 2018-07-12 18:25 | CON.PSY ---
Psychiatry Consult Chief Complaint: 52 year old female with many chronic medical conditions, has Trach, history of Depression. Sees for Psych treatment. Symptoms: reports: Anxiety - Previous Psychiatric Treatment Outpatient: Less than 6 mos ago Inpatient: None - Previous Substance Abuse Treatment Outpatient: None Inpatient: None - Reason for Previous Treatment Reason for Previous Treatment: Major Depression - Current Medications Current Medications: Active Medications Acetaminophen (Tylenol -) 650 mg PO Q6H PRN PRN Reason: PAIN OR FEVER Last Admin: 07/10/18 11:29 Dose: 650 mg Albuterol/Ipratropium (Duoneb -) 1 amp NEB Q6H PRN PRN Reason: SHORTNESS OF BREATH Alprazolam (Xanax -) 0.25 mg PO BID [facility] Last Admin: 07/12/18 09:19 Dose: 0.25 mg Apixaban (Eliquis -) 5 mg PO BID [facility] Last Admin: 07/12/18 09:19 Dose: 5 mg Baclofen (Lioresal -) 30 mg PO BID [facility] Last Admin: 07/12/18 09:19 Dose: 30 mg Diltiazem HCl (Cardizem Cd -) 240 mg PO DAILY [facility] Last Admin: 07/12/18 09:19 Dose: 240 mg Docusate Sodium (Colace -) 100 mg PO BID PRN PRN Reason: CONSTIPATION Last Admin: 07/12/18 17:16 Dose: 100 mg Gabapentin (Neurontin -) 400 mg PO TID [facility] Last Admin: 07/12/18 14:35 Dose: 400 mg Hydromorphone HCl (Dilaudid -) 4 mg PO Q6H PRN PRN Reason: PAIN LEVEL 7 - 10 Last Admin: 07/12/18 17:07 Dose: 4 mg Ceftriaxone Sodium 1 gm/ (Dextrose) 50 mls @ 100 mls/hr IVPB DAILY [facility]; Protocol Last Admin: 07/12/18 09:19 Dose: 100 mls/hr Vancomycin HCl (Vancomycin 1 Gm Premix -) 1 gm in 200 mls @ 166.667 mls/hr IVPB Q12H [facility]; Protocol Last Admin: 07/12/18 17:13 Dose: 166.667 mls/hr Insulin Aspart (Novolog Vial) 0 units SQ ACHS [facility]; Protocol Last Admin: 07/12/18 17:11 Dose: 7 units Ketoconazole (Nizoral 2% Cream -) 1 applic TP DAILY [facility] Last Admin: 07/12/18 09:21 Dose: 1 applic Levothyroxine Sodium (Synthroid -) 300 mcg PO DAILY@0700 [facility] Last Admin: 07/12/18 06:38 Dose: 300 mcg Non-Formulary Medication (Patient's Own Med) 1 each PO DAILY [facility] Nortriptyline HCl (Pamelor -) 10 mg PO HS [facility] Last Admin: 07/11/18 21:20 Dose: 10 mg Nystatin/Triamcinolone Acetonide (Mycolog Ii Ointment -) 1 applic TP BID [facility] Last Admin: 07/12/18 09:21 Dose: 1 applic Ondansetron HCl (Zofran Odt -) 4 mg SL Q6H PRN PRN Reason: NAUSEA AND/OR VOMITING Last Admin: 07/12/18 09:26 Dose: 4 mg Prednisone (Deltasone -) 7.5 mg PO DAILY [facility] Rifaximin (Xifaxan -) 550 mg PO BID [facility] Last Admin: 07/12/18 09:20 Dose: 550 mg Roflumilast (Daliresp -) 500 mcg PO DAILY [facility] Last Admin: 07/12/18 09:20 Dose: 500 mcg Rosuvastatin Calcium (Crestor -) 10 mg PO HS [facility] Last Admin: 07/11/18 21:18 Dose: 10 mg Sitagliptin Phosphate (Januvia -) 100 mg PO DAILY@0700 [facility] Last Admin: 07/12/18 14:35 Dose: 100 mg Venlafaxine HCl (Effexor Xr -) 75 mg PO DAILY [facility] Last Admin: 07/12/18 09:20 Dose: 75 mg Zolpidem Tartrate (Ambien -) 5 mg PO HS PRN PRN Reason: INSOMNIA - Allergies Allergies: Allergies Allergy/AdvReac Type Severity Reaction Status Date / Time oxycodone [Oxycodone] Allergy Severe Nausea Verified 07/09/18 09:32 oxycodone HCl [From Percocet] Allergy Severe Nausea Verified 07/09/18 09:32 aspirin Allergy Mild Verified 07/09/18 09:32 blueberry [Blueberry] Allergy Mild Swelling Verified 07/09/18 09:32 fentanyl Allergy Verified 07/09/18 09:32 - Current Living Status Usual Living Arrangement: With Significant Other - Current Mental Status Evaluation Appearance: Well Groomed Attitude: Cooperative - Affect Affect: Full Range Appropriateness: Appropriate to Content - Mood Mood: Euthymic - Speech/Language Expressive: Coherent - Psychomotor Activity Psychomotor Activity: Normal - Thought Process Thought Process: Intact - Thought Content Hallucinations: Absent Delusions: Absent - Self Perception Self Perception: No Impairment - Cognition Attention: Alert Orientation: Time Memory, Immediate Recall: Intact Memory, Short Term: 3/3 Memory, Remote with Promptin/3 - Concentration Serial Sevens Intact: Yes Simple Calculations Intact: Yes - Abstraction Proverb Interpretation: Intact Judgement: Intact - Insight Insight: Intact - Impulse Control Impulse Control: Good Control - Suicidal Ideation Suicidal Ideation: No - Homicidal Ideation Homicidal Ideation: No Assessment/Plan !0 Continue with VEnlafaxine and Xanax. 2) Psych foillow up with Angela upon Discharge.
[2018-07-12] MEDS ORDERED: diphenhydrAMINE HCL 25 MG CAPSULE (FP) PO PRN (18:42)
[2018-07-12] MEDS ORDERED: ZOLPIDEM TARTRATE 5 MG TABLET PO PRN (22:00)
[2018-07-12] MEDS: ROSUVASTATIN CA 10 MG TABLET (FP) PO SCH (22:24)
[2018-07-12] MEDS: NORTRIPTYLINE HCL 10 MG CAPSULE PO SCH (22:25)
[2018-07-13] MEDS: VANCOMYCIN 1 GM PREMIX - 1 GM/200 ML BAG IVPB SCH ×2 (03:38→05:11)
[2018-07-13 06:06] LABS: SERUM IRON SATURATION 10 % (15-55); TOTAL IRON BINDING CAPACITY 387 ug/dL (250-450); UIBC 349 ug/dL (131-425)
[2018-07-13] MEDS: LEVOTHYROXINE NA 100 MCG TABLET (FP) PO SCH (06:44)
[2018-07-13] MEDS: GABAPENTIN 400 MG CAPSULE (FP) PO SCH ×2 (06:44→13:39)
[2018-07-13] MEDS: sitaGLIPtin PHOSPHATE 100 MG TABLET (FP) PO SCH (06:44)
[2018-07-13] MEDS: INSULIN (NOVOLOG) ASPART 100 UNITS/ML 10ML VIAL SQ SCH ×2 (06:45→11:13)
[2018-07-13] MEDS ORDERED: PT OWN MED DRAWER 7, Y5N ONE (09:02)
[2018-07-13] MEDS ORDERED: DEXTROSE 5%-WATER - 50 ML IVPB ONE (09:02)
[2018-07-13] MEDS ORDERED: cefTRIAXone SODIUM 1 GM VIAL ONE (09:02)
[2018-07-13] MEDS: BACLOFEN 10 MG TABLET (FP) PO SCH (09:10)
[2018-07-13] MEDS: ROFLUMILAST 500 MCG TABLET PO SCH (09:12)
[2018-07-13] MEDS: ALPRAZolam 0.25 MG TABLET PO SCH (09:12)
[2018-07-13] MEDS: APIXABAN 5 MG TABLET PO SCH (09:13)
[2018-07-13] MEDS: RIFAXIMIN 550 MG TABLET (UD) PO SCH (09:13)
[2018-07-13] MEDS: VENLAFAXINE HCL 75 MG E.R. CAPSULES (FP) PO SCH (09:13)
--- NOTE | 2018-07-13 09:21 | CONSULT ---
Consult Consult Specialty:: Endocrinology Referred by:: Cindy Garza Reason for Consultation:: Hyperglycemia - History of Present Illness Chief Complaint: Back pain History of Present Illness: This is a 52-year-old female with h/o AFib (Paroxysmal), HTN, HLD, COPD O2 dependent, Uterine CA stents/[place] in the past, Osteomyelitis of the thoracic spine, chronic back pain (since 2012) and T2DM presents to the emergency department with c/o back pain which is associated with episodes of nausea and nonbilious-bloody emesis and increased secretion with coughing. The patient reports a prior diagnosis of gastroparesis, states the symptoms feels similar to a flare-up. Denies shortness of breath. Also complained of scattered rashes B /l to the inguinal region going down to the rectum. Pt referred for management of hyperglycemia. 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 Has blurred vision. Saw Ophthalmology a few months ag. 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 C/O numbness of feet for about a year. FS athome 200 to 300s. Occ up to 500. Takes Tresiba 35 BID and Novolog 12 TID. Had urinary Incontinence. 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 Presumed adhesions from prior surgeries. - Past Surgical History Past Surgical History: Yes: Appendectomy, Hysterectomy (with BSO), Stent - Alcohol/Substance Use Hx Alcohol Use: No - Smoking History Smoking history: Former smoker Have you smoked in the past 12 months: No Aproximately how many cigarettes per day: 3 If you are a former smoker, when did you quit?: 2014 - Social History Usual Living Arrangement: With Significant Other 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) History of Recent Travel: No Home Medications - Allergies Allergies/Adverse Reactions: Allergies Allergy/AdvReac Type Severity Reaction Status Date / Time oxycodone [Oxycodone] Allergy Severe Nausea Verified 07/09/18 09:32 oxycodone HCl [From Percocet] Allergy Severe Nausea Verified 07/09/18 09:32 aspirin Allergy Mild Verified 07/09/18 09:32 blueberry [Blueberry] Allergy Mild Swelling Verified 07/09/18 09:32 fentanyl Allergy Verified 07/09/18 09:32 - Home Medications Home Medications: Ambulatory Orders Albuterol Sulfate Inhaler - [Ventolin HFA Inhaler -] 2 puff IH Q4H PRN #0 inhaler 11/29/16 Acetaminophen [Tylenol .Regular Strength -] 650 mg PO Q6H PRN #0 tablet Alprazolam [Xanax] 0.25 mg PO BID tablet MDD 2 03/27/17 Roflumilast [Daliresp -] 500 mcg PO DAILY tablet 03/27/17 Apixaban [Eliquis -] 5 mg PO BID tablet 04/29/17 Baclofen 30 mg PO TID 07/09/18 Cholecalciferol (Vitamin D3) [Vitamin D3] 2,000 unit PO WEEKLY 07/09/18 Cyanocobalamin [Vitamin B12 -] 100 mcg PO DAILY 07/09/18 Diltiazem HCl [Diltiazem 24Hr Cd] 240 mg PO DAILY 07/09/18 Gabapentin [Neurontin] 400 mg PO TID 07/09/18 HYDROmorphone [Dilaudid -] 4 mg PO Q4H PRN 07/09/18 Levocetirizine Dihydrochloride 5 mg PO HS 07/09/18 Levothyroxine [Synthroid -] 300 mcg PO DAILY 07/09/18 Multivitamin [One Daily] 1 each PO DAILY 07/09/18 Nortriptyline HCl [Pamelor -] 10 mg PO DAILY 07/09/18 Rifaximin [Xifaxan] 550 mg PO TID 07/09/18 Rosuvastatin Calcium [Crestor] 10 mg PO DAILY 07/09/18 Venlafaxine HCl ER [Effexor Xr -] 75 mg PO DAILY 07/09/18 Vortioxetine Hydrobromide [Trintellix] 10 mg PO DAILY 07/09/18 Zaleplon [Sonata] 10 mg PO HS 07/09/18 predniSONE [Deltasone -] 10 mg PO DAILY 07/09/18 predniSONE [Deltasone -] 20 mg PO WEEKLY 07/09/18 Baclofen 30 mg PO BID #60 tablet 07/13/18 Cephalexin Monohydrate [Keflex -] 500 mg PO TID #21 capsule 07/13/18 Ketoconozole 2% Cream [Nizoral 2% Cream -] 1 applic TP DAILY #1 bottle 07/13/18 Nystatin/Triamcinolone Top Oin [Mycolog II -] 1 applic TP BID #45 g 07/13/18 Ondansetron [Zofran *Odt*] 8 mg PO BID PRN #90 tab.rapdis 07/13/18 Prednisone 7.5 mg PO DAILY #45 tablet 07/13/18 Family Disease History - Family Disease History Family Disease History: Diabetes: Mother (heart surgery), Heart Disease: Mother , CA: Father (leukemia) Review of Systems - Review of Systems Constitutional: reports: No Symptoms Eyes: reports: No Symptoms HENT: reports: No Symptoms Neck: reports: No Symptoms Cardiovascular: reports: No Symptoms Respiratory: reports: No Symptoms Gastrointestinal: reports: No Symptoms, Dysphagia Genitourinary: reports: Incontinence Musculoskeletal: reports: Back Pain Neurological: reports: No Symptoms Physical Exam Vital Signs: Vital Signs Temperature 97.7 F 07/12/18 21:00 Pulse Rate 104 H 07/13/18 07:51 Respiratory Rate 20 07/12/18 23:00 Blood Pressure 145/90 07/12/18 23:00 O2 Sat by Pulse Oximetry (%) 97 07/13/18 07:51 Constitutional: Yes: No Distress, Calm Eyes: Yes: Conjunctiva Clear, EOM Intact HENT: Yes: Atraumatic, Normocephalic Neck: Yes: Trachea Midline, Other (Has tracheostomy) Cardiovascular: Yes: Regular Rate and Rhythm Respiratory: Yes: Regular, CTA Bilaterally Gastrointestinal: Yes: Normal Bowel Sounds, Soft Musculoskeletal: Yes: Back Pain Extremities: Yes: WNL Edema: No Neurological: Yes: Alert, Oriented Labs: CBC, BMP 07/12/18 12:10 07/12/18 12:10 Assessment/Plan AP: UTI Back Pain A Fib T2 DM Diet discussed Start Levemir 12 units daily at HS, Increase dose as necessary BGM and Novolog coverage ACHS Will f/u
--- NOTE | 2018-07-13 10:33 | CON.PSL ---
Psychology Consult Consult Specialty:: Clinical Psychology History Provided By: Patient Limitations to Obtaining History: Poor Historian Current Medications: Active Medications Acetaminophen (Tylenol -) 650 mg PO Q6H PRN PRN Reason: PAIN OR FEVER Last Admin: 07/10/18 11:29 Dose: 650 mg Albuterol/Ipratropium (Duoneb -) 1 amp NEB Q6H PRN PRN Reason: SHORTNESS OF BREATH Alprazolam (Xanax -) 0.25 mg PO BID [facility] Last Admin: 07/13/18 09:12 Dose: 0.25 mg Apixaban (Eliquis -) 5 mg PO BID [facility] Last Admin: 07/13/18 09:13 Dose: 5 mg Baclofen (Lioresal -) 30 mg PO BID [facility] Last Admin: 07/13/18 09:10 Dose: 30 mg Diltiazem HCl (Cardizem Cd -) 240 mg PO DAILY [facility] Last Admin: 07/13/18 09:12 Dose: 240 mg Diphenhydramine HCl (Benadryl -) 25 mg PO Q6H PRN PRN Reason: FOR ITCHING Last Admin: 07/12/18 22:24 Dose: 25 mg Docusate Sodium (Colace -) 100 mg PO BID PRN PRN Reason: CONSTIPATION Last Admin: 07/12/18 17:16 Dose: 100 mg Gabapentin (Neurontin -) 400 mg PO TID [facility] Last Admin: 07/13/18 06:44 Dose: 400 mg Hydromorphone HCl (Dilaudid -) 4 mg PO Q6H PRN PRN Reason: PAIN LEVEL 7 - 10 Last Admin: 07/13/18 10:01 Dose: 4 mg Ceftriaxone Sodium 1 gm/ (Dextrose) 50 mls @ 100 mls/hr IVPB DAILY [facility]; Protocol Last Admin: 07/12/18 09:19 Dose: 100 mls/hr Vancomycin HCl (Vancomycin 1 Gm Premix -) 1 gm in 200 mls @ 166.667 mls/hr IVPB Q12H [facility]; Protocol Last Admin: 07/13/18 05:11 Dose: Not Given Insulin Aspart (Novolog Vial) 0 units SQ ACHS [facility]; Protocol Last Admin: 07/13/18 06:45 Dose: 5 units Ketoconazole (Nizoral 2% Cream -) 1 applic TP DAILY [facility] Last Admin: 07/12/18 09:21 Dose: 1 applic Levothyroxine Sodium (Synthroid -) 300 mcg PO DAILY@0700 [facility] Last Admin: 07/13/18 06:44 Dose: 300 mcg Non-Formulary Medication (Patient's Own Med) 1 each PO DAILY [facility] Nortriptyline HCl (Pamelor -) 10 mg PO HS [facility] Last Admin: 07/12/18 22:25 Dose: 10 mg Nystatin/Triamcinolone Acetonide (Mycolog Ii Ointment -) 1 applic TP BID [facility] Last Admin: 07/12/18 22:25 Dose: 1 applic Ondansetron HCl (Zofran Odt -) 4 mg SL Q6H PRN PRN Reason: NAUSEA AND/OR VOMITING Last Admin: 07/12/18 09:26 Dose: 4 mg Prednisone (Deltasone -) 7.5 mg PO DAILY [facility] Last Admin: 07/13/18 09:10 Dose: 7.5 mg Rifaximin (Xifaxan -) 550 mg PO BID [facility] Last Admin: 07/13/18 09:13 Dose: 550 mg Roflumilast (Daliresp -) 500 mcg PO DAILY [facility] Last Admin: 07/13/18 09:12 Dose: 500 mcg Rosuvastatin Calcium (Crestor -) 10 mg PO HS [facility] Last Admin: 07/12/18 22:24 Dose: 10 mg Sitagliptin Phosphate (Januvia -) 100 mg PO DAILY@0700 [facility] Last Admin: 07/13/18 06:44 Dose: 100 mg Venlafaxine HCl (Effexor Xr -) 75 mg PO DAILY [facility] Last Admin: 07/13/18 09:13 Dose: 75 mg Zolpidem Tartrate (Ambien -) 5 mg PO HS PRN PRN Reason: INSOMNIA Last Admin: 07/12/18 22:25 Dose: 5 mg Allergies: Allergies Allergy/AdvReac Type Severity Reaction Status Date / Time oxycodone [Oxycodone] Allergy Severe Nausea Verified 07/09/18 09:32 oxycodone HCl [From Percocet] Allergy Severe Nausea Verified 07/09/18 09:32 aspirin Allergy Mild Verified 07/09/18 09:32 blueberry [Blueberry] Allergy Mild Swelling Verified 07/09/18 09:32 fentanyl Allergy Verified 07/09/18 09:32 Does patient have pain?: Yes Pain Location Body Site: Back Pain Description: Non-Descriptive Hx Alcohol Use: No Hx Substance Use: No Hx Substance Use Treatment: No Current Medical Exam-Psy Attention: Other (The patient appeared to shift in and out of awareness. She responded to the examiner's request to stay on target.) Orientation: Time, Person, Place Immediate Term Memory: 3/3 Expressive: Slurred Receptive: Age Appropriate Comprehension of Spoken Words Hallucinations: Absent Thought Process: Intact Depression: None Hopelessness: No Loss of Interest: No Anxiety Level: Mild Danger to Self and Others: No Sleep: Difficulty falling asleep Serial Sevens Intact: No Repeats 3 words told earlier: 0/3 Support System: Spouse Leisure activities: With Family Problem List - Problem (1) Somatic complaints, multiple Code(s): R68.89 - OTHER GENERAL SYMPTOMS AND SIGNS (2) Insomnia disorder Code(s): G47.00 - INSOMNIA, UNSPECIFIED Assessment/Plan The patient was cooperative and tried to attend to the examiner's questions. She seemed to move in and out of alertness throughout the examination. It is important to note that she stated that she received pain medication a half hour earlier. This may be the reason for her slurred speech and drifting in and out of awareness. The patient indicated that she may be discharged today. If she remains in the hospital, she will be seen as a followup to help with mood and chronic pain.
[2018-07-13] MEDS ORDERED: INSULIN (NOVOLOG) ASPART 100 UNITS/ML 10ML VIAL ONE (10:59)
[2018-07-13] MEDS: NYSTATIN/TRIAMCINOLONE TOPICAL OINTMENT 15 GM TUBE TP SCH (11:08)
[2018-07-13] MEDS: KETOCONOZOLE 2% TOPICAL CREAM 15 GM TUBE TP SCH (11:09)
--- NOTE | 2018-07-13 11:32 | DS ---
Physical Examination Vital Signs: Vital Signs Temperature 97.8 F 07/13/18 10:56 Pulse Rate 112 H 07/13/18 10:56 Respiratory Rate 20 07/13/18 10:56 Blood Pressure 126/83 07/13/18 10:56 O2 Sat by Pulse Oximetry (%) 97 07/13/18 07:51 Findings/Remarks: The patient is a 52-year-old female with past medical history of AFib ( Paroxysmal), HTN, HLD, COPD O2 dependent, Uterine CA stents/[place] in the past, Osteomyelitis of the thoracic spine, chronic back pain (since 2012) and DM presents to the emergency department with multiple complain. The patient reports a baseline history of chronic back pain, states on the 06 of July she had multiple injections to the mid-back by a pain management doctor, unable to recall details. The patient states s/p the injection patient did have relief but states the pain did flare up again. The patient states the back pain is associated with episodes of nausea and nonbilious-bloody emesis and increased secretion with coughing. The patient reports a prior diagnosis of gastroparesis , states the symptoms feels similar to a flare-up. Denies shortness of breath. The patient reports additional concerns of scattered rashes B/l to the inguinal region going down to the rectum. The patient states shes been applying A&D to the area, with relief. The patient states initially there were blisters, that's been improved. The patient reports shes been having increased urinary frequency every 15 minutes. Denies dysuria and hematuria. The patient reports pain to the L. foot. Constitutional: Yes: Well Nourished, No Distress, Calm Cardiovascular: Yes: Regular Rate and Rhythm Respiratory: Yes: Regular, Other (Trach collar) Gastrointestinal: Yes: Normal Bowel Sounds, Soft Musculoskeletal: Yes: WNL Extremities: Yes: WNL Edema: No Peripheral Pulses WNL: Yes Neurological: Yes: Alert, Oriented Psychiatric: Yes: Alert, Oriented Labs: CBC, BMP 07/12/18 12:10 07/12/18 12:10 Discharge Summary Reason For Visit: NAUSEA AND VOMITING Current Active Problems Abscess (Acute) Insomnia disorder (Acute) Leukocytosis (Acute) Somatic complaints, multiple (Acute) UTI (urinary tract infection) (Acute) Hospital Course: Microbiology 07/09/18 10:23 Urine - Urine Clean Catch Urine Culture - Final Escherichia Coli Enterococcus Faecalis Staphylococcus Epidermidis Proteus Mirabilis 07/09/18 13:05 Blood - Peripheral Venous Blood Culture - Preliminary NO GROWTH OBTAINED AFTER 72 HOURS, INCUBATION TO CONTINUE FOR 2 DAYS. 07/09/18 13:05 Blood - Peripheral Venous Blood Culture - Preliminary NO GROWTH OBTAINED AFTER 72 HOURS, INCUBATION TO CONTINUE FOR 2 DAYS. Condition: Stable - Instructions Referrals: Manolo Jaquez [Primary Care Provider] - Disposition: VNS/HOME HEALTH CARE - Home Medications Comprehensive Discharge Medication List: Ambulatory Orders Albuterol Sulfate Inhaler - [Ventolin HFA Inhaler -] 2 puff IH Q4H PRN #0 inhaler 11/29/16 Acetaminophen [Tylenol .Regular Strength -] 650 mg PO Q6H PRN #0 tablet Alprazolam [Xanax] 0.25 mg PO BID tablet MDD 2 03/27/17 Roflumilast [Daliresp -] 500 mcg PO DAILY tablet 03/27/17 Apixaban [Eliquis -] 5 mg PO BID tablet 04/29/17 Baclofen 30 mg PO TID 07/09/18 Cholecalciferol (Vitamin D3) [Vitamin D3] 2,000 unit PO WEEKLY 07/09/18 Cyanocobalamin [Vitamin B12 -] 100 mcg PO DAILY 07/09/18 Diltiazem HCl [Diltiazem 24Hr Cd] 240 mg PO DAILY 07/09/18 Gabapentin [Neurontin] 400 mg PO TID 07/09/18 HYDROmorphone [Dilaudid -] 4 mg PO Q4H PRN 07/09/18 Levocetirizine Dihydrochloride 5 mg PO HS 07/09/18 Levothyroxine [Synthroid -] 300 mcg PO DAILY 07/09/18 Multivitamin [One Daily] 1 each PO DAILY 07/09/18 Nortriptyline HCl [Pamelor -] 10 mg PO DAILY 07/09/18 Ondansetron [Ondansetron Odt] 8 mg PO BID PRN 07/09/18 Rifaximin [Xifaxan] 550 mg PO TID 07/09/18 Rosuvastatin Calcium [Crestor] 10 mg PO DAILY 07/09/18 Venlafaxine HCl ER [Effexor Xr -] 75 mg PO DAILY 07/09/18 Vortioxetine Hydrobromide [Trintellix] 10 mg PO DAILY 07/09/18 Zaleplon [Sonata] 10 mg PO HS 07/09/18 predniSONE [Deltasone -] 10 mg PO DAILY 07/09/18 predniSONE [Deltasone -] 20 mg PO WEEKLY 07/09/18
[2018-07-13] MEDS: CEFTRIAXONE 1 GM in DEXTROSE 5%-WATER - 50 ML IVPB SCH (11:45)
--- NOTE | 2018-07-13 12:01 | PN ---
Progress Note, Physician Chief Complaint: PULMONARY ALERT,FEELING BETTER,-RESP DISTRESS - Current Medication List Current Medications: Active Medications Acetaminophen (Tylenol -) 650 mg PO Q6H PRN PRN Reason: PAIN OR FEVER Last Admin: 07/10/18 11:29 Dose: 650 mg Albuterol/Ipratropium (Duoneb -) 1 amp NEB Q6H PRN PRN Reason: SHORTNESS OF BREATH Alprazolam (Xanax -) 0.25 mg PO BID [facility] Last Admin: 07/13/18 09:12 Dose: 0.25 mg Apixaban (Eliquis -) 5 mg PO BID [facility] Last Admin: 07/13/18 09:13 Dose: 5 mg Baclofen (Lioresal -) 30 mg PO BID [facility] Last Admin: 07/13/18 09:10 Dose: 30 mg Cephalexin HCl (Keflex -) 500 mg PO TID [facility] Diltiazem HCl (Cardizem Cd -) 240 mg PO DAILY [facility] Last Admin: 07/13/18 09:12 Dose: 240 mg Diphenhydramine HCl (Benadryl -) 25 mg PO Q6H PRN PRN Reason: FOR ITCHING Last Admin: 07/12/18 22:24 Dose: 25 mg Docusate Sodium (Colace -) 100 mg PO BID PRN PRN Reason: CONSTIPATION Last Admin: 07/12/18 17:16 Dose: 100 mg Gabapentin (Neurontin -) 400 mg PO TID [facility] Last Admin: 07/13/18 06:44 Dose: 400 mg Hydromorphone HCl (Dilaudid -) 4 mg PO Q6H PRN PRN Reason: PAIN LEVEL 7 - 10 Last Admin: 07/13/18 10:01 Dose: 4 mg Insulin Aspart (Novolog Vial) 0 units SQ ACHS [facility]; Protocol Last Admin: 07/13/18 11:13 Dose: 7 units Ketoconazole (Nizoral 2% Cream -) 1 applic TP DAILY [facility] Last Admin: 07/13/18 11:09 Dose: 1 applic Levothyroxine Sodium (Synthroid -) 300 mcg PO DAILY@0700 [facility] Last Admin: 07/13/18 06:44 Dose: 300 mcg Non-Formulary Medication (Patient's Own Med) 1 each PO DAILY [facility] Nortriptyline HCl (Pamelor -) 10 mg PO HS [facility] Last Admin: 07/12/18 22:25 Dose: 10 mg Nystatin/Triamcinolone Acetonide (Mycolog Ii Ointment -) 1 applic TP BID [facility] Last Admin: 07/13/18 11:08 Dose: 1 applic Ondansetron HCl (Zofran Odt -) 4 mg SL Q6H PRN PRN Reason: NAUSEA AND/OR VOMITING Last Admin: 07/12/18 09:26 Dose: 4 mg Prednisone (Deltasone -) 7.5 mg PO DAILY [facility] Last Admin: 07/13/18 09:10 Dose: 7.5 mg Rifaximin (Xifaxan -) 550 mg PO BID [facility] Last Admin: 07/13/18 09:13 Dose: 550 mg Roflumilast (Daliresp -) 500 mcg PO DAILY [facility] Last Admin: 07/13/18 09:12 Dose: 500 mcg Rosuvastatin Calcium (Crestor -) 10 mg PO HS [facility] Last Admin: 07/12/18 22:24 Dose: 10 mg Sitagliptin Phosphate (Januvia -) 100 mg PO DAILY@0700 [facility] Last Admin: 07/13/18 06:44 Dose: 100 mg Venlafaxine HCl (Effexor Xr -) 75 mg PO DAILY [facility] Last Admin: 07/13/18 09:13 Dose: 75 mg Zolpidem Tartrate (Ambien -) 5 mg PO HS PRN PRN Reason: INSOMNIA Last Admin: 07/12/18 22:25 Dose: 5 mg - Objective Vital Signs: Vital Signs Temperature 97.8 F 07/13/18 10:56 Pulse Rate 112 H 07/13/18 10:56 Respiratory Rate 20 07/13/18 10:56 Blood Pressure 126/83 07/13/18 10:56 O2 Sat by Pulse Oximetry (%) 97 07/13/18 07:51 Constitutional: Yes: Well Nourished, Calm Eyes: Yes: WNL HENT: Yes: WNL Neck: Yes: Supple (TRACH) Cardiovascular: Yes: Pulse Irregular, S1, S2 Respiratory: Yes: Wheezes (SCATTERED TAO WHEEZES) Gastrointestinal: Yes: Normal Bowel Sounds, Soft Extremities: Yes: WNL Edema: No Labs: CBC, BMP Assessment/Plan Problem List - Problems (1) Leukocytosis Assessment/Plan: Code(s): D72.829 - ELEVATED WHITE BLOOD CELL COUNT, UNSPECIFIED (2) UTI (urinary tract infection) Assessment/Plan: Code(s): N39.0 - URINARY TRACT INFECTION, SITE NOT SPECIFIED (3) Respiratory failure Assessment/Plan: Code(s): J96.90 - RESPIRATORY FAILURE, UNSP, UNSP W HYPOXIA OR HYPERCAPNIA (4) Afib Assessment/Plan: Code(s): I48.91 - UNSPECIFIED ATRIAL FIBRILLATION (5) COPD (chronic obstructive pulmonary disease) Assessment/Plan: Code(s): J44.9 - CHRONIC OBSTRUCTIVE PULMONARY DISEASE, UNSPECIFIED Qualifiers: COPD type: unspecified COPD Qualified Code(s): J44.9 - Chronic obstructive pulmonary disease, unspecified (6) Diabetes mellitus Assessment/Plan: Code(s): E11.9 - TYPE 2 DIABETES MELLITUS WITHOUT COMPLICATIONS Qualifiers: Diabetes mellitus type: type 2 (7) Nausea and vomiting Assessment/Plan: Code(s): R11.2 - NAUSEA WITH VOMITING, UNSPECIFIED Qualifiers: Vomiting type: unspecified Vomiting Intractability: unspecified Qualified Code(s): R11.2 - Nausea with vomiting, unspecified (8) Abscess Assessment/Plan: Code(s): L02.91 - CUTANEOUS ABSCESS, UNSPECIFIED PLAN: ABX BD TX PRN Trach collar O2 Local wound care Patient has been taking Prednisone 10mg OD for months. Would try to taper. Would D/C on 7.5mg OD and attempt further taper as an outpatient DR RUFFIN
[2018-07-13] MEDS ORDERED: CEPHALEXIN MONOHYDRATE 500 MG CAPSULE (UD) PO SCH (14:00)
[2018-07-13 14:25] VITALS: BMI 32.5
[2018-07-13] MEDS: ONDANSETRON *ODT* 4 MG TABLET SL PRN (14:28)
[2018-07-13 15:31] VITALS: BP 136/89; PULSE 121; TEMP 98
[2018-07-13] MEDS ORDERED: INSULIN SLIDING SCALE (NOVOLOG) 1 VIAL SQ SCH (22:00)
[2018-07-13] MEDS ORDERED: INSULIN (LEVEMIR) 100 UNITS/ML UNITS SQ SCH (22:00)
[2018-07-14] MEDS ORDERED: INSULIN SLIDING SCALE (NOVOLOG) 1 VIAL SQ SCH (07:00)
== END 2018-07-13 17:39 | disposition home health service (06) | DRG 690 ==
LOC: JER 09:18 → JERBED 13:40 → OBSVTOIN 17:33 → J5S 21:38
PROVIDERS: ADMIT Family Medicine; ATTEND Family Medicine
DX: N39.0 Urinary tract infection, site not specified (principal); J96.10 Chronic respiratory failure, unspecified whether with hypoxia or hypercapnia; L02.411 Cutaneous abscess of right axilla; E11.43 Type 2 diabetes mellitus with diabetic autonomic (poly)neuropathy; G62.9 Polyneuropathy, unspecified; Z93.0 Tracheostomy status; E66.9 Obesity, unspecified; Z68.32 Body mass index [BMI] 32.0-32.9, adult; I48.0 Paroxysmal atrial fibrillation; J44.9 Chronic obstructive pulmonary disease, unspecified; R21 Rash and other nonspecific skin eruption; Z99.81 Dependence on supplemental oxygen; Z86.73 Personal history of transient ischemic attack (TIA), and cerebral infarction without residual deficits; M54.5 Low back pain; Z85.42 Personal history of malignant neoplasm of other parts of uterus; Z87.891 Personal history of nicotine dependence; Z90.710 Acquired absence of both cervix and uterus; E78.5 Hyperlipidemia, unspecified; Z90.49 Acquired absence of other specified parts of digestive tract; K76.0 Fatty (change of) liver, not elsewhere classified; D72.829 Elevated white blood cell count, unspecified; F39 Unspecified mood [affective] disorder; F41.9 Anxiety disorder, unspecified; G89.4 Chronic pain syndrome; G47.00 Insomnia, unspecified
CPT/HCPCS: 36415; 71045-TC-FY; 73610-TC-LT-FY; 73630-TC-LT; 74177-TC; 80053; 80061; 81003; 81015; 82607; 82728; 82962; 83036; 83540; 83550; 83605; 83690; 83721; 84439; 84443; 84484; 85025; 85027; 87040; 87081; 87086; 87186; 93005; 93010; 97116-GP; 97161-GP; 99284-25; G0378; J0475; Q0162

== ENCOUNTER 2018-08-07 15:58 | Emergency (ER) | payer OTHER ==
[2018-08-07 16:11] VITALS: BMI 31.3
[2018-08-07] MEDS ORDERED: ONDANSETRON 4 MG/2 ML VIAL IVPUSH ONE (16:28)
[2018-08-07] MEDS ORDERED: morphine CARPU-JECT 4 MG/1 ML DISP.SYRIN IVPUSH ONE ×2 (16:28→20:15)
--- NOTE | 2018-08-07 16:37 | PDOC ---
History of Present Illness - General Chief Complaint: SIRS, Suspected/Possible Stated Complaint: UTI Time Seen by Provider: 08/07/18 16:11 History Source: Patient Exam Limitations: No Limitations - History of Present Illness Initial Comments: 08/07/18 16:32 Patient is 52F with past medical history of afib (not on AC), HTN, HLD, COPD O2 dependent and trached, Uterine ca, stents/Titus in the past, osteomyelitis of the thoracic spine, chronic back pain (since 2012) and DM here today complaining of urinary incontinence, abdominal pain and back pain for the past 24 hours. She reports taking macrobid and mirabegron for a UTI as an outpatient. She was seen in the ED and admitted with multiple complaints including a UTI in mid-June. Endorses nausea and subjective fever. Endorses shortness of breath at baseline. Denies chest pain. Denies leg swelling. Endorses back pain, chronic. Last bowel movement yesterday. Past History - Past Medical History Allergies/Adverse Reactions: Allergies Allergy/AdvReac Type Severity Reaction Status Date / Time oxycodone [Oxycodone] Allergy Severe Nausea Verified 08/07/18 16:07 oxycodone HCl [From Percocet] Allergy Severe Nausea Verified 08/07/18 16:07 aspirin Allergy Mild Verified 08/07/18 16:07 blueberry [Blueberry] Allergy Mild Swelling Verified 08/07/18 16:07 fentanyl Allergy Verified 08/07/18 16:07 Home Medications: Ambulatory Orders Albuterol Sulfate Inhaler - [Ventolin HFA Inhaler -] 2 puff IH Q4H PRN #0 inhaler 11/29/16 Acetaminophen [Tylenol .Regular Strength -] 650 mg PO Q6H PRN #0 tablet Apixaban [Eliquis -] 5 mg PO BID tablet 04/29/17 Baclofen 30 mg PO TID 07/09/18 Diltiazem HCl [Diltiazem 24Hr Cd] 240 mg PO BID 07/09/18 Gabapentin [Neurontin] 400 mg PO TID 07/09/18 HYDROmorphone [Dilaudid -] 4 mg PO Q4H PRN 07/09/18 Levocetirizine Dihydrochloride 5 mg PO HS 07/09/18 Levothyroxine [Synthroid -] 50 mcg PO DAILY 07/09/18 Multivitamin [One Daily] 1 each PO DAILY 07/09/18 Rosuvastatin Calcium [Crestor] 10 mg PO DAILY 07/09/18 Venlafaxine HCl ER [Effexor Xr -] 75 mg PO DAILY 07/09/18 Vortioxetine Hydrobromide [Trintellix] 20 mg PO DAILY 07/09/18 predniSONE [Deltasone -] 10 mg PO DAILY 07/09/18 Ondansetron [Zofran *Odt*] 8 mg PO BID PRN #90 tab.rapdis 07/13/18 Alprazolam [Xanax] 0.25 mg PO TID MDD 2 08/07/18 Desoximetasone [Topicort] 1 ml TP BID 08/07/18 Doxepin HCl [Sinequan -] 25 mg PO DAILY 08/07/18 Famotidine 40 mg PO BID 08/07/18 Hydromorphone HCl 4 mg PO Q4H 08/07/18 Mirabegron [Myrbetriq] 50 mg PO DAILY 08/07/18 Montelukast Na [Singulair -] 10 mg PO HS 08/07/18 Zolpidem Tartrate 10 mg PO HS 08/07/18 Anemia: Yes Asthma: Yes (COPD, trach) Cancer: Yes (UTERINE) Cardiac Disorders: Yes (A-fib) CVA: No COPD: Yes CHF: No Dementia: No Diabetes: Yes GI Disorders: Yes (colitis, SB resection, GERD) Disorders: Yes (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) HTN: Yes Hypercholesterolemia: Yes Liver Disease: No Psychiatric Problems: Yes (ANXIETY) Seizures: Yes (5 yrs ago had a seizure ( zofran and reglan given together as per patient) Thyroid Disease: No - Surgical History Abdominal Surgery: Yes (BOWEL RESECTION) Appendectomy: Yes (removed 1998) Cardiac Surgery: No Cholecystectomy: No Lung Surgery: No Neurologic Surgery: No Orthopedic Surgery: Yes (Back Sx T7,6) - Immunization History Td Vaccination: Yes TDAP Vaccination: Yes Immunization Up to Date: Yes - Suicide/Smoking/Psychosocial Hx Smoking Status: No Smoking History: Former smoker Have you smoked in the past 12 months: No Number of Cigarettes Smoked Daily: 3 If you are a former smoker, when did you quit?: 2014 Information on smoking cessation initiated: No 'Breaking Loose' booklet given: 03/12/15 Hx Alcohol Use: No Drug/Substance Use Hx: No Substance Use Type: None Hx Substance Use Treatment: No Review of Systems - Review of Systems Comments:: 08/07/18 16:36 GENERAL/CONSTITUTIONAL:+fever no chills. No weakness. HEAD, EYES, EARS, NOSE AND THROAT: No change in vision. No sore throat. CARDIOVASCULAR: No chest pain +shortness of breath RESPIRATORY: No cough, wheezing, or hemoptysis. GASTROINTESTINAL: +nausea, no vomiting, diarrhea or constipation. GENITOURINARY: No dysuria, +frequency. MUSCULOSKELETAL: No joint or muscle swelling or pain. No neck pain + back pain. SKIN: No rash NEUROLOGIC: No headache, vertigo, loss of consciousness, or change in strength/ sensation. ENDOCRINE: No increased thirst. No abnormal weight change HEMATOLOGIC/LYMPHATIC: No anemia, easy bleeding, or history of blood clots. ALLERGIC/IMMUNOLOGIC: No hives or skin allergy. *Physical Exam - Vital Signs Last Vital Signs Temp Pulse Resp BP Pulse Ox 99.5 F 114 H 20 139/95 99 08/07/18 16:07 08/07/18 16:07 08/07/18 16:07 08/07/18 16:07 08/07/18 16:07 - Physical Exam Comments: 08/07/18 16:38 GENERAL: Awake, alert, and fully oriented, in no acute distress, trached HEAD: No signs of trauma, normocephalic, atraumatic EYES: PERRLA, EOMI, sclera anicteric, conjunctiva clear ENT: Auricles normal inspection, hearing grossly normal, nares patent, oropharynx clear without exudates. Moist mucosa NECK: Normal ROM, supple, no lymphadenopathy, JVD, or masses LUNGS: No distress, speaks full sentences, clear to auscultation bilaterally HEART: tachycardic, regular rhythm, normal S1 and S2, no murmurs, rubs or gallops, peripheral pulses normal and equal bilaterally. ABDOMEN: mildly distended, +suprapubic tenderness, normoactive bowel sounds. No guarding, no rebound. No masses EXTREMITIES: Normal inspection, Normal range of motion, no edema. No clubbing or cyanosis. NEUROLOGICAL: Cranial nerves II through XII grossly intact. Normal speech, no focal sensorimotor deficits SKIN: Warm, Dry, normal turgor, no rashes or lesions noted. ED Treatment Course - LABORATORY CBC & Chemistry Diagram: 08/07/18 16:45 08/07/18 17:25 - RADIOLOGY Radiology Studies Ordered: Category Date Time Status CHEST X-RAY PORTABLE* [RAD] Stat Radiology 08/07/18 16:27 Ordered Medical Decision Making - Medical Decision Making 08/07/18 16:39 Patient is 52F with past medical history of afib (not on AC), HTN, HLD, COPD O2 dependent and trached, Uterine ca, stents/Titus in the past, osteomyelitis of the thoracic spine, chronic back pain (since 2012) and DM here today with dysuria and abdominal pain. Vital signs notable for tachycardia. Afebrile rectally. DDx includes, but is not limited to: UTI, pyelonephritis, urinary retention. Broad workup initiated given patient's multiple comorbidities. 08/07/18 17:32 UA negative. Lactic acid elevated to 3.1. Given 500cc fluids, will CT abdomen as patient has no infection in urinary system. 08/07/18 17:44 CXR shows no acute cardiopulmonary process. CBC shows no leukocytosis, no anemia. 08/07/18 17:49 EKG shows sinus tachycardia with rate of 116. No st elevations/depressions. Normal axis. Normal intervals. No significant t wave abnormalities. 08/07/18 18:54 Glucose 399, given insulin 5U IV. CMP shows normal Cr function. Patient complaining of continuing pain, given 2mg of morphine. 08/07/18 19:[address] Barton. *DC/Admit/Observation/Transfer Diagnosis at time of Disposition: Abdominal pain - Discharge Dispostion Condition at time of disposition: Stable - Referrals Referrals: Manolo Jaquez [Primary Care Provider] - - Patient Instructions - Post Discharge Activity
[2018-08-07] MEDS ORDERED: ONDANSETRON 4 MG/2 ML VIAL ONE (16:56)
[2018-08-07] MEDS ORDERED: morphine SULFATE 4 MG/ML VIAL ONE ×2 (16:56→20:28)
[2018-08-07 17:01] LABS: BASO % 0.8 % (0-2.0); HEMATOCRIT 32.9 % (32.4-45.2); HEMOGLOBIN 10.2 GM/dL (10.7-15.3); LYMPH % 7.5 % (8-40); MCH 23.8 pg (25.7-33.7); MEAN CELL VOLUME 76.8 fl (80-96); MEAN PLT VOLUME 9.7 fl (7.5-11.1); MONO % 3.4 % (3.8-10.2); NEUT % 88.3 % (42.8-82.8); PLATELET COUNT 289 K/MM3 (134-434); RBC 4.28 M/mm3 (3.60-5.2); RDW 18.8 % (11.6-15.6); WHITE BLOOD COUNT 8.8 K/mm3 (4.0-10.0)
[2018-08-07 17:04] LABS: URINE APPEARANCE CLEAR; URINE BILIRUBIN NEGATIVE (<2.0 mg/dL); URINE COLOR STRAW; URINE GLUCOSE (UA) 3+ (NEGATIVE); URINE KETONE TRACE (NEGATIVE); URINE LEUK ESTERASE NEGATIVE (NEGATIVE); URINE NITRITE NEGATIVE (NEGATIVE); URINE UROBILINOGEN NEGATIVE mg/dL (0.2-1.0)
[2018-08-07 17:08] LABS: URINE PROTEIN 2+ (NEGATIVE)
[2018-08-07 17:09] LABS: EPI CELLS RARE /HPF (FEW)
[2018-08-07] MEDS ORDERED: SODIUM CHLORIDE 500 ML IV STA (17:30)
[2018-08-07 17:34] LABS: INR 1.15 (0.83-1.09)
[2018-08-07 17:37] LABS: ACTIVATED PTT 30.2 SECONDS (25.2-36.5)
--- NOTE | 2018-08-07 17:43 | PDOC ---
Attending Attestation - Resident Resident Name: Antoine Lizama - ED Attending Attestation I have performed the following: I have examined & evaluated the patient, The case was reviewed & discussed with the resident, I agree w/resident's findings & plan, Exceptions are as noted - HPI HPI: 08/07/18 17:39 The patient is a 52 year old female with a significant PMH of afib, COPD(O2 dependent), hypertension, hyperlipidemia, diabetes, uterine ca, osteomyelitis, chronic back pain who presents to the emergency department with lower abdominal pain. The patient reports some associated urinary incontinence with her symptoms. She states that her incontinence has been intermittent , every 15 minutes since earlier today. The patient also endorses a fever and abdominal distension. The patient denies any other symptoms. Had normal BM yesterday. She denies any chills, nausea, vomiting, diarrhea, constipation or other urinary symptoms. She denies any chest pain, shortness of breath, headache and dizziness. The patient denies any other complaints. PCP: Dr. Jaquez - Physicial Exam PE: 08/07/18 17:43 agree with resident exam - Medical Decision Making 08/07/18 17:44 52yo F with MMP including trach, AF presents to the ED with suprapubic pain and dysuria. Vitals remarkable to tachycardia to 114. Exam with mild abd distention and suprapubic ttp. Lactate is 3.1. DDx includes but not limited to UTI vs pyelonephritis vs colitis vs appendicitis vs diverticulitis. Will obtain CTAP scan, control pain, and reassess
[2018-08-07 18:14] LABS: ALBUMIN 3.1 g/dl (3.4-5.0); ANION GAP 12 MMOL/L (8-16); BILIRUBIN,TOTAL 0.3 mg/dL (0.2-1.0); BLOOD UREA NITROGEN 13 mg/dL (7-18); CALCIUM 8.8 mg/dL (8.5-10.1); CHLORIDE 97 mmol/L (98-107); CO2 30 mmol/L (21-32); CREATININE 0.7 mg/dL (0.55-1.3); POTASSIUM 4.5 mmol/L (3.5-5.1); SGOT/AST 22 U/L (15-37); SGPT/ALT 42 U/L (13-61); SODIUM 139 mmol/L (136-145); TOT PROT 6.7 g/dl (6.4-8.2)
[2018-08-07 18:16] LABS: ALK PHOS 117 U/L (45-117)
[2018-08-07 18:18] LABS: GLUCOSE,RANDOM 399 mg/dL (74-106)
[2018-08-07] MEDS ORDERED: INSULIN REGULAR HUMAN 100 UNITS/ML *VIAL IVPUSH ONE (18:25)
[2018-08-07] MEDS ORDERED: INSULIN REGULAR HUMAN 100 UNITS/ML *VIAL ONE (18:29)
[2018-08-07] MEDS ORDERED: morphine CARPU-JECT 2 MG/1 ML DISP.SYRIN IVPUSH ONE ×2 (18:44→23:31)
[2018-08-07] MEDS ORDERED: MORPHINE SULFATE 2 MG/ML VIAL ONE ×2 (18:52→23:46)
[2018-08-07 20:25] VITALS: TEMP 98.2
[2018-08-07] MEDS ORDERED: SODIUM CHLORIDE 0.9% 500 ML INFUS.BAG IV ONE (21:55)
[2018-08-07] MEDS ORDERED: ACYCLOVIR 400 MG TABLET PO ONE (22:25)
[2018-08-07] MEDS ORDERED: dilTIAZem HCL 60 MG TABLET (FP) PO ONE (22:27)
--- NOTE | 2018-08-07 22:38 | PDOC ---
*Physical Exam - Vital Signs Last Vital Signs Temp Pulse Resp BP Pulse Ox 98.2 F 112 H 18 113/67 98 08/07/18 20:24 08/07/18 20:24 08/07/18 20:24 08/07/18 20:24 08/07/18 20:24 - Physical Exam Comments: 08/07/18 22:37 R foot: Patient has a rash which looks like zoster. Left buttocks: Pressure ulcer GENERAL: Well developed, well nourished. Awake and alert. No acute distress. HEENT: Normocephalic, atraumatic. PERRLA, EOMI. No conjunctival pallor. Sclera are non- icteric. Moist mucous membranes. Oropharynx is clear. NECK: Supple. Full ROM. No JVD. Carotid pulses 2+ and symmetric, without bruits. No thyromegaly. No lymphadenopathy. CARDIOVASCULAR: Tachycardic rate and regular rhythm. No murmurs, rubs, or gallops. Distal pulses are 2+ and symmetric. PULMONARY: No evidence of respiratory distress. Lungs clear to auscultation bilaterally. No wheezing, rales or rhonchi. ABDOMINAL: Abdomen is Distended. It is still soft with no rebound or guarding. No organomegaly. Normoactive bowel sounds. MUSCULOSKELETAL Normal range of motion at all joints. No bony deformities or tenderness. No CVA tenderness. EXTREMITIES: No cyanosis. No clubbing. No edema. No calf tenderness. NEUROLOGICAL: Alert, awake, appropriate. Cranial nerves 2-12 intact. Normal speech. PSYCHIATRIC: Cooperative. Good eye contact. Appropriate mood and affect. 08/08/18 00:17 ED Treatment Course - LABORATORY CBC & Chemistry Diagram: 08/07/18 16:45 08/07/18 17:25 - ADDITIONAL ORDERS Additional order review: Laboratory Results 08/07/18 08/07/18 08/07/18 19:20 18:57 17:25 PT with INR INR PTT (Actin FS) Sodium Potassium Chloride Carbon Dioxide Anion Gap BUN Creatinine Creat Clearance w eGFR POC Glucometer [phone] Random Glucose Lactic Acid 3.1 H* Calcium Total Bilirubin AST ALT Alkaline Phosphatase Troponin I Total Protein Albumin Lipase 181 Urine Color Urine Appearance Urine pH Ur Specific [place] Urine Protein Urine Glucose (UA) Urine Ketones Urine Blood Urine Nitrite Urine Bilirubin Urine Urobilinogen Ur Leukocyte Esterase Urine WBC (Auto) Urine RBC (Auto) Ur Epithelial Cells 08/07/18 08/07/18 08/07/18 17:25 16:45 16:45 PT with INR INR PTT (Actin FS) Sodium 139 Potassium 4.5 Chloride 97 L Carbon Dioxide 30 Anion Gap 12 BUN 13 Creatinine 0.7 Creat Clearance w eGFR > 60 POC Glucometer Random Glucose 399 H* Lactic Acid 3.1 H* Calcium 8.8 Total Bilirubin 0.3 AST 22 ALT 42 Alkaline Phosphatase 117 Troponin I < 0.02 Cancelled Total Protein 6.7 Albumin 3.1 L Lipase Urine Color Urine Appearance Urine pH Ur Specific [place] Urine Protein Urine Glucose (UA) Urine Ketones Urine Blood Urine Nitrite Urine Bilirubin Urine Urobilinogen Ur Leukocyte Esterase Urine WBC (Auto) Urine RBC (Auto) Ur Epithelial Cells 08/07/18 08/07/18 08/07/18 16:45 16:45 16:35 PT with INR 13.00 INR 1.15 H PTT (Actin FS) 30.2 Sodium Cancelled Potassium Cancelled Chloride Cancelled Carbon Dioxide Cancelled Anion Gap Cancelled BUN Cancelled Creatinine Cancelled Creat Clearance w eGFR Cancelled POC Glucometer Random Glucose Cancelled Lactic Acid Calcium Cancelled Total Bilirubin Cancelled AST Cancelled ALT Cancelled Alkaline Phosphatase Cancelled Troponin I Total Protein Cancelled Albumin Cancelled Lipase Urine Color Straw Urine Appearance Clear Urine pH 7.0 Ur Specific [place] 1.031 Urine Protein 2+ H Urine Glucose (UA) 3+ H Urine Ketones Trace H Urine Blood 2+ H Urine Nitrite Negative Urine Bilirubin Negative Urine Urobilinogen Negative Ur Leukocyte Esterase Negative Urine WBC (Auto) 4 Urine RBC (Auto) 11 Ur Epithelial Cells Rare 08/07/18 08/07/18 18:57 16:45 RBC 4.28 MCV 76.8 L MCHC 31.0 L RDW 18.8 H MPV 9.7 Neutrophils % 88.3 H Lymphocytes % 7.5 L D Monocytes % 3.4 L Eosinophils % 0.0 D Basophils % 0.8 POC Glucometer [phone] - Medications Given in the ED: ED Medications Discontinued Medications Generic Name Dose Route Start Last Admin Trade Name Freq PRN Reason Stop Dose Admin Diphenhydramine HCl 50 mg 08/07/18 21:26 08/07/18 21:56 Benadryl Injection - IVPUSH 08/07/18 21:27 50 mg ONCE ONE Administration Sodium Chloride 500 mls @ 500 mls/hr 08/07/18 17:30 08/07/18 17:34 Normal Saline - IV 08/07/18 18:29 500 mls/hr ASDIR STA Administration Insulin Human Regular 5 units 08/07/18 18:25 08/07/18 18:32 Novolin R Vial *For Ivpush Or Iv Drip Only* IVPUSH 08/07/18 18:26 5 units ONCE ONE Administration Morphine Sulfate 4 mg 08/07/18 16:28 08/07/18 17:03 Morphine Injection - IVPUSH 08/07/18 16:29 4 mg ONCE ONE Administration Morphine Sulfate 2 mg 08/07/18 18:44 08/07/18 18:59 Morphine Injection - IVPUSH 08/07/18 18:45 2 mg ONCE ONE Administration Morphine Sulfate 4 mg 08/07/18 20:15 08/07/18 20:30 Morphine Injection - IVPUSH 08/07/18 20:16 4 mg ONCE ONE Administration Ondansetron HCl 4 mg 08/07/18 16:28 08/07/18 17:03 Zofran Injection IVPUSH 08/07/18 16:29 4 mg ONCE ONE Administration Sodium Chloride 1,000 ml 08/07/18 21:55 08/07/18 22:09 Normal Saline - IV 08/07/18 21:56 1,000 ml ONCE ONE Administration Medical Decision Making - Medical Decision Making 08/08/18 00:18 52 yo F w past medical history of afib (not on AC), HTN, HLD, COPD O2 dependent and trached, Uterine ca, stents/Titus in the past, osteomyelitis of the thoracic spine, chronic back pain (since 2012) and DM She is complaining most of Pain in her Left foot. There is a rash which looks like zoster. Will treat with acyclovir. She feels much better after morphine and fluids and wants to go home. HR has went down to 105. Lactate down to 2.7 Will DC with strict return precautions. 08/08/18 00:19 08/08/18 01:59 *DC/Admit/Observation/Transfer Diagnosis at time of Disposition: Abdominal pain, Shingles - Discharge Dispostion Condition at time of disposition: Stable - Prescriptions Prescriptions: Acyclovir [Zovirax -] 800 mg PO 5XD #50 tablet Ondansetron HCl [Zofran] 4 mg PO DAILY #30 tablet - Referrals Referrals: Manolo Jaquez [Primary Care Provider] - - Patient Instructions Printed Discharge Instructions: DI for Fever (Symptom) -- Adult, DI for Sepsis -- Adult Additional Instructions: You came to the ER with abdominal pain and Foot pain. We diagnosed your foot pain as shingles and are prescribing you acyclovir. Make sure to go picker tender the meds and take it 5 times a day for the next 7 days. Come back to the ER if you develop a fever, have extreme pain, can't breathe, or have any other concerning symptoms. - Post Discharge Activity
[2018-08-07] MEDS ORDERED: dilTIAZem HCL 60 MG TABLET (FP) ONE (22:55)
[2018-08-08] MEDS ORDERED: morphine CARPU-JECT 2 MG/1 ML DISP.SYRIN IVPUSH ONE (01:57)
[2018-08-08 02:00] VITALS: BP 121/71; PULSE 105
[2018-08-08] MEDS ORDERED: MORPHINE SULFATE 2 MG/ML VIAL ONE (02:13)
--- NOTE | 2018-08-08 21:29 | EKG ---
Test Reason : Blood Pressure : / mmHG Vent. Rate : 116 BPM Atrial Rate : 116 BPM P-R Int : 140 ms QRS Dur : 078 ms QT Int : 310 ms P-R-T Axes : 035 -09 051 degrees QTc Int : 430 ms SINUS TACHYCARDIA CANNOT RULE OUT ANTERIOR INFARCT , AGE UNDETERMINED ABNORMAL ECG WHEN COMPARED WITH ECG OF 09-JUL-2018 10:23, PREMATURE ATRIAL COMPLEXES ARE NO LONGER PRESENT Confirmed by BECKIE REHMAN MD ([id number]) on 08/08/2018 9:29:02 PM Referred By: Confirmed By:BECKIE REHMAN MD
== END 2018-08-08 03:20 | disposition home or self-care (01) ==
LOC: JER 15:58
PROC: 3E0337Z Introduction of Electrolytic and Water Balance Substance into Peripheral Vein, Percutaneous Approach (ICD-10-PCS; principal; 2018-08-07)
PROC: 3E033NZ Introduction of Analgesics, Hypnotics, Sedatives into Peripheral Vein, Percutaneous Approach (ICD-10-PCS; 2018-08-07)
PROC: 3E033VG Introduction of Insulin into Peripheral Vein, Percutaneous Approach (ICD-10-PCS; 2018-08-07)
PROC: 3E033NZ Introduction of Analgesics, Hypnotics, Sedatives into Peripheral Vein, Percutaneous Approach (ICD-10-PCS; 2018-08-07)
PROC: 3E033GC Introduction of Other Therapeutic Substance into Peripheral Vein, Percutaneous Approach (ICD-10-PCS; 2018-08-07)
DX: R10.30 Lower abdominal pain, unspecified (principal); B02.9 Zoster without complications; I48.91 Unspecified atrial fibrillation; I10 Essential (primary) hypertension; E78.5 Hyperlipidemia, unspecified; J44.9 Chronic obstructive pulmonary disease, unspecified; Z99.81 Dependence on supplemental oxygen; Z85.42 Personal history of malignant neoplasm of other parts of uterus; E11.9 Type 2 diabetes mellitus without complications; M54.9 Dorsalgia, unspecified; G89.29 Other chronic pain; Z87.39 Personal history of other diseases of the musculoskeletal system and connective tissue; Z79.4 Long term (current) use of insulin
CPT/HCPCS: 36415; 71045-TC-FY; 74177-TC; 80053; 81003; 81015; 82962; 83605; 83690; 84484; 85025; 85610; 85730; 87040; 87086; 93005; 93010; 96361; 96374; 96376; 99285-25

== ENCOUNTER 2018-08-10 07:21 | Inpatient (IN) | payer OTHER ==
--- NOTE | 2018-08-10 08:02 | PDOC ---
History of Present Illness - General Chief Complaint: Nausea/Vomiting Stated Complaint: VOMTING,ABD PAIN Time Seen by Provider: 08/10/18 08:02 - History of Present Illness Initial Comments: 52 year old female with PMH of afib (not on AC), HTN, HLD, COPD O2 dependent and trached, Uterine ca, stents/Titus in the past, osteomyelitis of the thoracic spine, chronic back pain (since 2012) and poorly controlled DM presenting with abdominal pain, nausea, vomiting, and poor appetite for the past three days. She was in our ED for similar symptoms three days prior and CT scan'ed without any acute pathological findings. She has irregular bowel movements with last BM three days prior. She also admits to increased sputum production and cough over the past few days. Denies fevers, chills, diarrhea, chest pain, SOB, leg swelling, visual symptoms, headaches, or other symptoms. 08/10/18 11:07 Past History - Past Medical History Allergies/Adverse Reactions: Allergies Allergy/AdvReac Type Severity Reaction Status Date / Time oxycodone [Oxycodone] Allergy Severe Nausea Verified 08/07/18 16:07 oxycodone HCl [From Percocet] Allergy Severe Nausea Verified 08/07/18 16:07 aspirin Allergy Mild Verified 08/07/18 16:07 blueberry [Blueberry] Allergy Mild Swelling Verified 08/07/18 16:07 fentanyl Allergy Verified 08/07/18 16:07 Home Medications: Ambulatory Orders Albuterol Sulfate Inhaler - [Ventolin HFA Inhaler -] 2 puff IH Q4H PRN #0 inhaler 11/29/16 Acetaminophen [Tylenol .Regular Strength -] 650 mg PO Q6H PRN #0 tablet Apixaban [Eliquis -] 5 mg PO BID tablet 04/29/17 Baclofen 30 mg PO TID 07/09/18 Diltiazem HCl [Diltiazem 24Hr Cd] 240 mg PO BID 07/09/18 Gabapentin [Neurontin] 400 mg PO TID 07/09/18 HYDROmorphone [Dilaudid -] 4 mg PO Q4H PRN 07/09/18 Levocetirizine Dihydrochloride 5 mg PO HS 07/09/18 Levothyroxine [Synthroid -] 50 mcg PO DAILY 07/09/18 Multivitamin [One Daily] 1 each PO DAILY 07/09/18 Rosuvastatin Calcium [Crestor] 10 mg PO DAILY 07/09/18 Venlafaxine HCl ER [Effexor Xr -] 75 mg PO DAILY 07/09/18 Vortioxetine Hydrobromide [Trintellix] 20 mg PO DAILY 07/09/18 predniSONE [Deltasone -] 10 mg PO DAILY 07/09/18 Ondansetron [Zofran *Odt*] 8 mg PO BID PRN #90 tab.rapdis 07/13/18 Alprazolam [Xanax] 0.25 mg PO TID MDD 2 08/07/18 Desoximetasone [Topicort] 1 ml TP BID 08/07/18 Doxepin HCl [Sinequan -] 25 mg PO DAILY 08/07/18 Famotidine 40 mg PO BID 08/07/18 Hydromorphone HCl 4 mg PO Q4H 08/07/18 Mirabegron [Myrbetriq] 50 mg PO DAILY 08/07/18 Montelukast Na [Singulair -] 10 mg PO HS 08/07/18 Ondansetron HCl [Zofran] 4 mg PO DAILY #30 tablet 08/07/18 Zolpidem Tartrate 10 mg PO HS 08/07/18 Acyclovir [Zovirax -] 800 mg PO 5XD #50 tablet 08/08/18 Anemia: Yes Asthma: Yes (COPD, trach) Cancer: Yes (UTERINE) Cardiac Disorders: Yes (A-fib) CVA: No COPD: Yes CHF: No Dementia: No Diabetes: Yes GI Disorders: Yes (colitis, SB resection, GERD) Disorders: Yes (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) HTN: Yes Hypercholesterolemia: Yes Liver Disease: No Psychiatric Problems: Yes (ANXIETY) Seizures: Yes (5 yrs ago had a seizure ( zofran and reglan given together as per patient) Thyroid Disease: No - Surgical History Abdominal Surgery: Yes (BOWEL RESECTION) Appendectomy: Yes (removed 1998) Cardiac Surgery: No Cholecystectomy: No Lung Surgery: No Neurologic Surgery: No Orthopedic Surgery: Yes (Back Sx T7,6) - Immunization History Td Vaccination: Yes TDAP Vaccination: Yes Immunization Up to Date: Yes - Suicide/Smoking/Psychosocial Hx Smoking Status: No Smoking History: Unknown if ever smoked Have you smoked in the past 12 months: No Number of Cigarettes Smoked Daily: 3 If you are a former smoker, when did you quit?: 2014 Information on smoking cessation initiated: No 'Breaking Loose' booklet given: 03/12/15 Hx Alcohol Use: No Drug/Substance Use Hx: No Substance Use Type: None Hx Substance Use Treatment: No Review of Systems - Review of Systems Constitutional: Yes: Loss of Appetite. No: Chills, Fever HEENTM: No: Blurred Vision, Recent change in vision Respiratory: Yes: SOB with Exertion. No: Cough, Shortness of Breath Cardiac (ROS): No: Chest Pain, Irregular Heart Rate, Lightheadedness, Palpitations, Syncope, Chest Tightness ABD/GI: Yes: Constipated, Nausea, Poor Appetite, Poor Fluid Intake, Vomiting. No: Diarrhea : No: Dysuria, Discharge, Frequency Musculoskeletal: Yes: Joint Pain. No: Back Pain Integumentary: No: Bruising, Change in Color, Change in Hair/Nails Neurological: No: Headache, Numbness, Paresthesia Psychiatric: No: Anxiety, Depression Hematologic/Lymphatic: Yes: Blood Clots. No: Anemia *Physical Exam - Vital Signs Last Vital Signs Temp Pulse Resp BP Pulse Ox 98.8 F 117 H 20 149/90 98 08/10/18 07:25 08/10/18 07:25 08/10/18 07:25 08/10/18 07:25 08/10/18 07:25 - Physical Exam General Appearance: Yes: Nourished, Appropriately Dressed. No: Apparent Distress HEENT: positive: EOMI, AYESHA, Normal Voice. negative: Normal ENT Inspection ( trach in place. site cdi) Neck: positive: Trachea midline, Normal Thyroid, Supple. negative: Tender, Rigid Respiratory/Chest: negative: Chest Tender, Lungs Clear, Normal Breath Sounds ( upper airway transmission but moving air well), Respiratory Distress, Accessory Muscle Use Cardiovascular: positive: Regular Rhythm, Tachycardia. negative: Regular Rate Gastrointestinal/Abdominal: positive: Tender, Decreased BS, Protuberent, Distended, Tenderness (luq). negative: Normal Bowel Sounds, Flat, Soft Rectal Exam: positive: other (erythematous gluteus). negative: normal exam Musculoskeletal: negative: Normal Inspection (tender in bl les oer her chronic pain) Integumentary: positive: Normal Color, Dry, Warm Neurologic: positive: Fully Oriented, Alert, Normal Mood/Affect, Normal Response ED Treatment Course - LABORATORY CBC & Chemistry Diagram: 08/10/18 09:31 08/10/18 09:31 Medical Decision Making - Medical Decision Making 52 year old female with poorly controlled diabetes and history of gastroparesis presenting with nausea, vomiting, and abdominal pain for the past few days that has acutely worsened. Patient admitted for further GI workup with consult for doctor Jolene. Overall clinical picture concerning for gastroparesis vs. ileus. VSS and labs roughly WNL except for glucosuria, and proteinuria. EKG on presentation demonstrated rate 103, ND 158, QRS 82, without St or T wave changes. 08/10/18 14:12 *DC/Admit/Observation/Transfer Diagnosis at time of Disposition: Nausea & vomiting Qualifiers: Vomiting type: unspecified Vomiting Intractability: unspecified Qualified Code( s): R11.2 - Nausea with vomiting, unspecified - Discharge Dispostion Condition at time of disposition: Stable Decision to Admit order: Yes - Referrals - Patient Instructions - Post Discharge Activity
[2018-08-10] MEDS ORDERED: ONDANSETRON 4 MG/2 ML VIAL IVPUSH ONE ×2 (08:33→20:37)
[2018-08-10] MEDS ORDERED: SODIUM CHLORIDE 0.9% 500 ML INFUS.BAG IV ONE (08:33)
[2018-08-10] MEDS ORDERED: ONDANSETRON 4 MG/2 ML VIAL ONE (09:32)
[2018-08-10 09:43] LABS: BASO % 0.7 % (0-2.0); EOS % 1.1 % (0-4.5); HEMOGLOBIN 9.6 GM/dL (10.7-15.3); LYMPH % 7.1 % (8-40); MCH 24.2 pg (25.7-33.7); MCHC 31.9 g/dl (32.0-36.0); MEAN PLT VOLUME 9.1 fl (7.5-11.1); MONO % 6.8 % (3.8-10.2); NEUT % 84.3 % (42.8-82.8); PLATELET COUNT 259 K/MM3 (134-434); RBC 3.94 M/mm3 (3.60-5.2); RDW 18.5 % (11.6-15.6); WHITE BLOOD COUNT 10.4 K/mm3 (4.0-10.0)
[2018-08-10 09:45] LABS: VENOUS PC02 53.2 mmHg (38-52); VENOUS PH 7.38 (7.32-7.42); VENOUS PO2 56.4 mmHg (28-48)
[2018-08-10] MEDS ORDERED: METOCLOPRAMIDE HCL INJECTION 10 MG/2 ML VIAL IVPB ONE (09:49)
[2018-08-10] MEDS ORDERED: METOCLOPRAMIDE HCL INJECTION 10 MG/2 ML VIAL ONE (09:56)
[2018-08-10 10:08] LABS: INR 1.4 (0.83-1.09); PROTHROMBIN TIME (PATIENT) 15.8 SEC (9.7-13.0)
[2018-08-10 10:14] LABS: ALBUMIN 3.2 g/dl (3.4-5.0); ANION GAP 13 MMOL/L (8-16); BILIRUBIN,TOTAL 0.2 mg/dL (0.2-1); BLOOD UREA NITROGEN 10 mg/dL (7-18); CALCIUM 8.4 mg/dL (8.5-10.1); CHLORIDE 99 mmol/L (98-107); CO2 29 mmol/L (21-32); CREATININE 0.6 mg/dL (0.55-1.3); POTASSIUM 3.5 mmol/L (3.5-5.1); SGOT/AST 16 U/L (15-37); SGPT/ALT 37 U/L (13-61); SODIUM 141 mmol/L (136-145); TOT PROT 6.8 g/dl (6.4-8.2)
[2018-08-10 10:17] LABS: ALK PHOS 117 U/L (45-117)
[2018-08-10] MEDS ORDERED: ACETAMINOPHEN 1000 MG/100 ML VIAL (NON FORMULARY) IVPB ONE (10:26)
[2018-08-10] MEDS ORDERED: HYDROmorphone HCL CARPU-JECT 2 MG/1 ML DISP.SYRIN IVPUSH ONE ×2 (10:52→14:11)
[2018-08-10 10:53] LABS: GLUCOSE,RANDOM 316 mg/dL (74-106)
--- NOTE | 2018-08-10 10:53 | PDOC ---
Attending Attestation - Resident Resident Name: Aliza Dai - ED Attending Attestation I have performed the following: I have examined & evaluated the patient, The case was reviewed & discussed with the resident, I agree w/resident's findings & plan - HPI HPI: 08/10/18 10:45 52-year-old female with multiple medical problems including diabetes, history of admissions for nausea/vomiting suspicious for gastroparesis (last similar presentation was in June and seen again in the emergency Department 3 days ago ) presents now with persistent nausea/vomiting not improving at home with Zofran. Patient was seen here, was noted to be dehydrated with elevated lactate , at that time requested discharge presents now secondary to vomiting undigested food last night and again this morning. Persistent upper abdominal discomfort but no fevers or chills, positive flatus but no bowel movement for 2- 3 days. - Physicial Exam PE: 08/10/18 10:47 Afebrile, baseline tachycardia Well-appearing and at baseline, conversant Trach in place and clear Abdomen is distended but soft, tender in the upper abdomen without guarding or rebound. Bowel sounds are decreased and normal. Neurologically nonfocal - Medical Decision Making 08/10/18 10:48 52-year-old female with multiple medical problems and multiple admissions in the past presents now with intractable nausea/vomiting despite oral antiemetics and trial of discharge 3 days ago. Persistent pain unchanged from 3 days ago, CAT scan at that time showed no acute pathology. Presentation could still be most consistent with gastroparesis, ? ileus, rule out pancreatitis. less consistent with SBO. Labs, urinalysis Check abdominal x-ray, unless obvious distention can defer repeat ctap ivf, pain control, nausea control given failed outpt trial, persistent vomiting, and persistently elevated lactate , will admit Heart Score/ECG Review #1 ECG reviewed & interpreted by me at: 09:02 General ECG Interpretation: Sinus Rhythm, Normal Rate (103), Normal Intervals ( qtc 434), No acute ischemic changes
[2018-08-10 11:10] LABS: URINE APPEARANCE CLEAR; URINE BILIRUBIN NEGATIVE (<2.0 mg/dL); URINE COLOR LTYELLOW; URINE GLUCOSE (UA) 3+ (NEGATIVE); URINE KETONE NEGATIVE (NEGATIVE); URINE NITRITE NEGATIVE (NEGATIVE); URINE UROBILINOGEN NEGATIVE mg/dL (0.2-1.0)
[2018-08-10] MEDS ORDERED: ACETAMINOPHEN INJECTION 100 ML IVPB ONE (11:15)
[2018-08-10] MEDS ORDERED: HYDROmorphone HCl 2 MG/ML VIAL ONE ×2 (11:15→15:01)
[2018-08-10 11:19] LABS: URINE LEUK ESTERASE 1+ (NEGATIVE); URINE PROTEIN 2+ (NEGATIVE)
[2018-08-10 11:30] LABS: EPI CELLS RARE /HPF (FEW); URINE BACTERIA RARE /hpf (NONE SEEN); URINE MUCUS RARE
[2018-08-10] MEDS ORDERED: ALBUTEROL SO4 2.5/IPRATROPIUM 0.5 INH SOL 3 ML VIAL.NEB. NEB ONE (14:46)
--- NOTE | 2018-08-10 15:41 | CON.GI ---
Consult Consult Specialty:: For Dr. Fernández who resumes care 08/11 Referred by:: Dr. Capps Reason for Consultation:: Vomiting - History of Present Illness Chief Complaint: Vomiting History of Present Illness: 52F admitted to [facility] ER for evaluation of vomiting. She had a CT scan of the abdomen and pelvis 08/07 for similar complaints. She also has had a CT scan of the abdomen and pelvis 07/09 and 06/28 that were4 unrevealing aside friom fatty liver. In ER blood glucose was 350. She describes having blood glucose levels in the high 300's to 400. She states that her PMD, Dr. Jaquez, manages her diabetes. She does not follow with and pumper head. She describes not having had a bowel movement for three days and that Dr. Jaquez started her on Linzess for constipation. She was uncertain if she has ever had an upper endoscopy but believes that colonoscopy was performed 2-[address] Lund and that it was "OK". In review of [facility], it appears as though she had EGD/Colonoscopy performed by Dr. Carson. EGD revealed gastric ulcers. Biopsies were negative for H. Pylori. Colonoscopy revealed a right sided colon anastamosis. Biopsies of the colon were unrevealing for microscopic colitis. Her current medication list was not available for review in the medication reconciliation as of yet. She has not been vomiting in the ED and wants ice chips. - History Source History Provided By: Patient, Medical Record - Past Medical History Cardio/Vascular: Yes: AFIB (Paroxysmal), HTN, Hyperlipdemia Pulmonary: Yes: Asthma, COPD, O2 Dependent Gastrointestinal: Yes: GI Bleed Renal/: Yes: Cancer (Uterine), Other ([place] in the past) Heme/Onc: Yes: Other (BCA, Uterine Ca) Infectious Disease: Yes: C-Diff (june 2014), Other (Osteomyelitis of thoracic spine) Psych: Yes: Anxiety, Bipolar, Depression Musculoskeletal: Yes: Chronic low back pain Endocrine: Yes: Diabetes Mellitus Additional Medical History: Frequent c/o abdominal pain-extensive w/u in the past negative. Presumed adhesions from prior surgeries. - Past Surgical History Past Surgical History: Yes: Appendectomy, Colectomy (By description, right colon resection with anastamosis noted on colonoscopy 2013), Hysterectomy (ADE/ BSO), Stent - Alcohol/Substance Use Hx Alcohol Use: No - Smoking History Smoking history: Unknown if ever smoked Have you smoked in the past 12 months: No Aproximately how many cigarettes per day: 3 If you are a former smoker, when did you quit?: 2014 - Social History Usual Living Arrangement: With Significant Other 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) History of Recent Travel: No Home Medications - Allergies Allergies/Adverse Reactions: Allergies Allergy/AdvReac Type Severity Reaction Status Date / Time oxycodone [Oxycodone] Allergy Severe Nausea Verified 08/07/18 16:07 oxycodone HCl [From Percocet] Allergy Severe Nausea Verified 08/07/18 16:07 aspirin Allergy Mild Verified 08/07/18 16:07 blueberry [Blueberry] Allergy Mild Swelling Verified 08/07/18 16:07 fentanyl Allergy Verified 08/07/18 16:07 - Home Medications Home Medications: Ambulatory Orders Albuterol Sulfate Inhaler - [Ventolin HFA Inhaler -] 2 puff IH Q4H PRN #0 inhaler 11/29/16 Acetaminophen [Tylenol .Regular Strength -] 650 mg PO Q6H PRN #0 tablet Apixaban [Eliquis -] 5 mg PO BID tablet 04/29/17 Baclofen 30 mg PO TID 07/09/18 Diltiazem HCl [Diltiazem 24Hr Cd] 240 mg PO BID 07/09/18 Gabapentin [Neurontin] 400 mg PO TID 07/09/18 HYDROmorphone [Dilaudid -] 4 mg PO Q4H PRN 07/09/18 Levocetirizine Dihydrochloride 5 mg PO HS 07/09/18 Levothyroxine [Synthroid -] 50 mcg PO DAILY 07/09/18 Multivitamin [One Daily] 1 each PO DAILY 07/09/18 Rosuvastatin Calcium [Crestor] 10 mg PO DAILY 07/09/18 Venlafaxine HCl ER [Effexor Xr -] 75 mg PO DAILY 07/09/18 Vortioxetine Hydrobromide [Trintellix] 20 mg PO DAILY 07/09/18 predniSONE [Deltasone -] 10 mg PO DAILY 07/09/18 Ondansetron [Zofran *Odt*] 8 mg PO BID PRN #90 tab.rapdis 07/13/18 Alprazolam [Xanax] 0.25 mg PO TID MDD 2 08/07/18 Desoximetasone [Topicort] 1 ml TP BID 08/07/18 Doxepin HCl [Sinequan -] 25 mg PO DAILY 08/07/18 Famotidine 40 mg PO BID 08/07/18 Hydromorphone HCl 4 mg PO Q4H 08/07/18 Mirabegron [Myrbetriq] 50 mg PO DAILY 08/07/18 Montelukast Na [Singulair -] 10 mg PO HS 08/07/18 Ondansetron HCl [Zofran] 4 mg PO DAILY #30 tablet 08/07/18 Zolpidem Tartrate 10 mg PO HS 08/07/18 Acyclovir [Zovirax -] 800 mg PO 5XD #50 tablet 08/08/18 Family Disease History - Family Disease History Family Disease History: Diabetes: Mother (Alive: heart surgery), Heart Disease: Mother, [place]: Father (: leukemia), Other: Brother (2,Healthy), Sister (1, Healthy) Other Family History: No children. No family history of colorectal cancer or other GI malignancy Review of Systems - Review of Systems Constitutional: denies: Fever, Unintentional Wgt. Loss Cardiovascular: denies: Chest Pain Respiratory: reports: SOB (chronic) Gastrointestinal: reports: Constipation, Vomiting. denies: Abdominal Pain, Melena, Rectal Bleeding, Vomiting Blood Physical Exam-GI Vital Signs: Vital Signs Temperature 98.8 F 08/10/18 07:25 Pulse Rate 117 H 08/10/18 07:25 Respiratory Rate 20 08/10/18 07:25 Blood Pressure 149/90 08/10/18 07:25 O2 Sat by Pulse Oximetry (%) 98 08/10/18 07:25 Constitutional: Yes: Calm Eyes: No: Sclera Icterus Cardiovascular: Yes: Regular Rate and Rhythm Respiratory: Yes: Wheezes (exp wheezing bilaterally) Gastrointestinal Inspection: Yes: Scars (deep midline vertical surgical scar). No: Distention ...Auscultate: Yes: Normoactive Bowel Sounds ...Palpate: No: Tenderness ...Percussion: Yes: Tympanitic (mild mid abdominal tympany to percussion) ...Rectal Exam: Yes: Other (Gallery Assistant present (her home health aid): no external lesions, no masses, no fecal impaction, light dietz stool, guaiac negative. No fecal impaction) Edema: No (No LE edema) Neurological: Yes: Alert (Awake) Labs: CBC, BMP 08/10/18 09:31 08/10/18 09:31 INR, PTT INR 1.40 (0.83-1.09) H 08/10/18 09:31 Hepatic Panel Total Bilirubin 0.2 mg/dL (0.2-1) 08/10/18 09:31 AST 16 U/L (15-37) 08/10/18 09:31 ALT 37 U/L (13-61) 08/10/18 09:31 Alkaline Phosphatase 117 U/L (45-117) 08/10/18 09:31 Albumin 3.2 g/dl (3.4-5.0) L 08/10/18 09:31 Imaging - Results Cat Scan: Report Reviewed, Image Reviewed Problem List - Problems (1) Nausea and vomiting Assessment/Plan: Suspect that N/V precipitated by porrly controlled diabtetes. Blood sugars consistently above 250 can potentiate this and judging by the blood glucose she describes at home and noted in the [facility] system during her multiple ER evaluations and admissions, this has been the case. Advised: Reglan 10mg IVPB TID for 4 doses if no contraindication noted with her current medication regimen IV hydration per PMD Trial of Clear liquids if no further vomiting Mineral oil enema. If vomiting subsides, add MiraLAX 17g PO BID Follow-up abdominal X-Ray for official read Will need glycemic contriol. Consider endocrine evaluation and continued follow- up as outpatient Will need anemia work-up. Consider heme eval. Given h/o PUD, EGD could be considered when clear from pulmonary standpoint, if trach can be connected to a vent during the procedure and when A/C can be held. ? if she is on A/C. Code(s): R11.2 - NAUSEA WITH VOMITING, UNSPECIFIED Qualifiers: Vomiting type: unspecified Vomiting Intractability: unspecified Qualified Code(s): R11.2 - Nausea with vomiting, unspecified
[2018-08-10] MEDS ORDERED: MINERAL OIL ENEMA 133 ML ENEMA PR ONE (16:13)
--- NOTE | 2018-08-10 16:18 | EKG ---
Test Reason : Blood Pressure : / mmHG Vent. Rate : 103 BPM Atrial Rate : 103 BPM P-R Int : 158 ms QRS Dur : 082 ms QT Int : 332 ms P-R-T Axes : -01 000 041 degrees QTc Int : 434 ms SINUS TACHYCARDIA CANNOT RULE OUT ANTERIOR INFARCT (CITED ON OR BEFORE 07-AUG-2018) ABNORMAL ECG WHEN COMPARED WITH ECG OF 07-AUG-2018 16:36, NO SIGNIFICANT CHANGE WAS FOUND Confirmed by Ilir Hernandes ([id number]) on 08/10/2018 4:17:37 PM Referred By: Confirmed By:Ilir Hernandes
[2018-08-10 18:31] VITALS: BMI 34.9
[2018-08-10] MEDS ORDERED: HYDROmorphone HCL 2 MG TABLET ONE ×2 (18:33→21:48)
[2018-08-10] MEDS: PANTOPRAZOLE SODIUM 40 MG VIAL IVPB SCH (18:42)
[2018-08-10] MEDS: METOCLOPRAMIDE HCL INJECTION 10 MG/2 ML VIAL IVPB SCH (18:42)
[2018-08-10] MEDS: D5-1/2NS+20 MEQ KCL - 20 MEQ/1,000 ML INFUS.BAG IV SCH (20:13)
[2018-08-10] MEDS: ALBUTEROL SO4 2.5/IPRATROPIUM 0.5 INH SOL 3 ML VIAL.NEB. NEB SCH (20:30)
[2018-08-10] MEDS: ZOLPIDEM TARTRATE 5 MG TABLET PO SCH (21:40)
[2018-08-10] MEDS: GABAPENTIN 400 MG CAPSULE (FP) PO SCH (21:40)
[2018-08-10] MEDS: ALPRAZolam 0.25 MG TABLET PO SCH (21:41)
[2018-08-10] MEDS: ROSUVASTATIN CA 10 MG TABLET (FP) PO SCH (21:41)
[2018-08-10] MEDS: MONTELUKAST NA 10 MG TABLET PO SCH (21:42)
[2018-08-10] MEDS: BACLOFEN 10 MG TABLET (FP) PO SCH (21:42)
[2018-08-10] MEDS ORDERED: PT OWN MED DRAWER 7, Y5N ONE (21:48)
[2018-08-10] MEDS: APIXABAN 5 MG TABLET PO SCH ×2 (22:01→23:46)
[2018-08-11] MEDS: METOCLOPRAMIDE HCL INJECTION 10 MG/2 ML VIAL IVPB SCH ×3 (00:07→17:37)
[2018-08-11] MEDS ORDERED: HYDROmorphone HCL 2 MG TABLET ONE ×4 (02:04→17:27)
[2018-08-11] MEDS ORDERED: PT OWN MED DRAWER 7, Y5N ONE ×2 (06:05→12:40)
[2018-08-11] MEDS: GABAPENTIN 400 MG CAPSULE (FP) PO SCH ×3 (06:12→22:17)
[2018-08-11] MEDS: ALPRAZolam 0.25 MG TABLET PO SCH ×3 (06:12→22:18)
[2018-08-11] MEDS: BACLOFEN 10 MG TABLET (FP) PO SCH ×3 (06:12→22:19)
[2018-08-11] MEDS: LEVOTHYROXINE NA 50 MCG TABLET (FP) PO SCH ×2 (06:56→11:04)
[2018-08-11 07:53] LABS: BASO % 0.8 % (0-2.0); HEMOGLOBIN 8.5 GM/dL (10.7-15.3); LYMPH % 15.3 % (8-40); MCH 23.6 pg (25.7-33.7); MCHC 30.5 g/dl (32.0-36.0); MEAN CELL VOLUME 77.3 fl (80-96); MEAN PLT VOLUME 9.1 fl (7.5-11.1); MONO % 8.7 % (3.8-10.2); NEUT % 73.2 % (42.8-82.8); PLATELET COUNT 231 K/MM3 (134-434); RBC 3.62 M/mm3 (3.60-5.2); RDW 18.3 % (11.6-15.6); WHITE BLOOD COUNT 5.1 K/mm3 (4.0-10.0)
[2018-08-11] MEDS: ALBUTEROL SO4 2.5/IPRATROPIUM 0.5 INH SOL 3 ML VIAL.NEB. NEB SCH ×4 (08:11→22:45)
[2018-08-11 08:27] LABS: CHLORIDE 105 mmol/L (98-107); POTASSIUM 3.9 mmol/L (3.5-5.1); SODIUM 144 mmol/L (136-145)
[2018-08-11 08:56] LABS: ALBUMIN 2.7 g/dl (3.4-5.0); ALK PHOS 100 U/L (45-117); AMYLASE 27 U/L (25-115); ANION GAP 7 MMOL/L (8-16); BILIRUBIN,TOTAL 0.2 mg/dL (0.2-1); BLOOD UREA NITROGEN 8 mg/dL (7-18); CALCIUM 7.9 mg/dL (8.5-10.1); CO2 32 mmol/L (21-32); CREATININE 0.7 mg/dL (0.55-1.3); GLUCOSE,RANDOM 279 mg/dL (74-106); LIPASE 146 U/L (73-393); SGOT/AST 17 U/L (15-37); SGPT/ALT 29 U/L (13-61); TOT PROT 5.9 g/dl (6.4-8.2)
[2018-08-11] MEDS ORDERED: PATIENT'S OWN MEDICATION (NON-FORMULARY) (Vortioxetine Hydrobromide [Trintellix] 20 MG) PO SCH (10:00)
[2018-08-11] MEDS ORDERED: PATIENT'S OWN MEDICATION (NON-FORMULARY) (Mirabegron [Myrbetriq] 50 MG) PO SCH (10:00)
--- NOTE | 2018-08-11 10:01 | HP ---
Admitting History and Physical - Admission History of Present Illness: 52-year-old female with multiple medical problems including diabetes, history of admissions for nausea/vomiting suspicious for gastroparesis (last similar presentation was in June and seen again in the emergency Department 3 days ago ) presents now with persistent nausea/vomiting not improving at home with Zofran. Patient was seen here, was noted to be dehydrated with elevated lactate , at that time requested discharge presents now secondary to vomiting undigested food last night and again this morning. Persistent upper abdominal discomfort but no fevers or chills, positive flatus but no bowel movement for 2- 3 days. - Past Medical History Cardiovascular: Yes: AFIB (Paroxysmal), HTN, Hyperlipdemia Pulmonary: Yes: Asthma, COPD, O2 Dependent Gastrointestinal: Yes: GI Bleed Renal/: Yes: Cancer (Uterine), Other ([place] in the past) ...: No Heme/Onc: Yes: Other (BCA, Uterine Ca) Infectious Disease: Yes: C-Diff (june 2014), Other (Osteomyelitis of thoracic spine) Psych: Yes: Anxiety, Bipolar, Depression Musculoskeletal: Yes: Chronic low back pain Endocrine: Yes: Diabetes Mellitus - Past Surgical History Past Surgical History: Yes: Appendectomy, Colectomy (By description, right colon resection with anastamosis noted on colonoscopy 2013), Hysterectomy (ADE/ BSO), Stent - Smoking History Smoking history: Unknown if ever smoked Have you smoked in the past 12 months: No Aproximately how many cigarettes per day: 3 If you are a former smoker, when did you quit?: 2015 - Alcohol/Substance Use Hx Alcohol Use: No - Social History 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) History of Recent Travel: No Home Medications - Allergies Allergies/Adverse Reactions: Allergies Allergy/AdvReac Type Severity Reaction Status Date / Time oxycodone [Oxycodone] Allergy Severe Nausea Verified 08/07/18 16:07 oxycodone HCl [From Percocet] Allergy Severe Nausea Verified 08/07/18 16:07 aspirin Allergy Mild Verified 08/07/18 16:07 blueberry [Blueberry] Allergy Mild Swelling Verified 08/07/18 16:07 fentanyl Allergy Verified 08/07/18 16:07 - Home Medications Home Medications: Ambulatory Orders Albuterol Sulfate Inhaler - [Ventolin HFA Inhaler -] 2 puff IH Q4H PRN #0 inhaler 11/29/16 Acetaminophen [Tylenol .Regular Strength -] 650 mg PO Q6H PRN #0 tablet Apixaban [Eliquis -] 5 mg PO BID tablet 04/29/17 Baclofen 30 mg PO TID 07/09/18 Diltiazem HCl [Diltiazem 24Hr Cd] 240 mg PO BID 07/09/18 Gabapentin [Neurontin] 400 mg PO TID 07/09/18 HYDROmorphone [Dilaudid -] 4 mg PO Q4H PRN 07/09/18 Levocetirizine Dihydrochloride 5 mg PO HS 07/09/18 Levothyroxine [Synthroid -] 50 mcg PO DAILY 07/09/18 Multivitamin [One Daily] 1 each PO DAILY 07/09/18 Rosuvastatin Calcium [Crestor] 10 mg PO DAILY 07/09/18 Venlafaxine HCl ER [Effexor Xr -] 75 mg PO DAILY 07/09/18 Vortioxetine Hydrobromide [Trintellix] 20 mg PO DAILY 07/09/18 predniSONE [Deltasone -] 10 mg PO DAILY 07/09/18 Ondansetron [Zofran *Odt*] 8 mg PO BID PRN #90 tab.rapdis 07/13/18 Alprazolam [Xanax] 0.25 mg PO TID MDD 2 08/07/18 Desoximetasone [Topicort] 1 ml TP BID 08/07/18 Doxepin HCl [Sinequan -] 25 mg PO DAILY 08/07/18 Famotidine 40 mg PO BID 08/07/18 Hydromorphone HCl 4 mg PO Q4H 08/07/18 Mirabegron [Myrbetriq] 50 mg PO DAILY 08/07/18 Montelukast Na [Singulair -] 10 mg PO HS 08/07/18 Ondansetron HCl [Zofran] 4 mg PO DAILY #30 tablet 08/07/18 Zolpidem Tartrate 10 mg PO HS 08/07/18 Acyclovir [Zovirax -] 800 mg PO 5XD #50 tablet 08/08/18 Family Disease History - Family Disease History Family Disease History: Diabetes: Mother (Alive: heart surgery), Heart Disease: Mother, [place]: Father (: leukemia), Other: Brother (2,Healthy), Sister (1, Healthy) Other Family History: No children. No family history of colorectal cancer or other GI malignancy Review of Systems - Review of Systems Cardiovascular: denies: Chest Pain Respiratory: denies: SOB Gastrointestinal: reports: Abdominal Pain, Nausea, Vomiting Genitourinary: reports: No Symptoms Neurological: reports: No Symptoms Physical Examination Vital Signs: Vital Signs Temperature 98.6 F 08/11/18 07:12 Pulse Rate 111 H 08/11/18 08:11 Respiratory Rate 22 08/11/18 07:12 Blood Pressure 138/88 08/11/18 07:12 O2 Sat by Pulse Oximetry (%) 99 08/11/18 08:11 Cardiovascular: Yes: S1, S2 Respiratory: Yes: Regular, CTA Bilaterally, Other (on trach o2) Gastrointestinal: Yes: Normal Bowel Sounds, Soft, Distention. No: Tenderness Neurological: Yes: Alert, Oriented Labs: CBC, BMP 08/11/18 06:30 08/11/18 06:30 Imaging - Results Cat Scan: Report Reviewed Problem List - Problems (1) Nausea and vomiting Assessment/Plan: -GI consult Noted--maybe gastroparesis -reglan iv and monitor Code(s): R11.2 - NAUSEA WITH VOMITING, UNSPECIFIED Qualifiers: Vomiting type: unspecified Vomiting Intractability: unspecified Qualified Code(s): R11.2 - Nausea with vomiting, unspecified (2) Afib Assessment/Plan: on diltiazem and eliquis monitor rate Code(s): I48.91 - UNSPECIFIED ATRIAL FIBRILLATION (3) COPD (chronic obstructive pulmonary disease) Assessment/Plan: -prednisone nebs pulm Code(s): J44.9 - CHRONIC OBSTRUCTIVE PULMONARY DISEASE, UNSPECIFIED Qualifiers: COPD type: unspecified COPD Qualified Code(s): J44.9 - Chronic obstructive pulmonary disease, unspecified (4) Diabetes mellitus, insulin dependent (IDDM), uncontrolled Assessment/Plan: -BGM-SS -ENDO Code(s): E10.65 - TYPE 1 DIABETES MELLITUS WITH HYPERGLYCEMIA (5) Gastritis Assessment/Plan: -PPI Code(s): K29.70 - GASTRITIS, UNSPECIFIED, WITHOUT BLEEDING Qualifiers: Gastritis type: unspecified gastritis Chronicity: unspecified Gastritis bleeding: without bleeding Qualified Code(s): K29.70 - Gastritis, unspecified , without bleeding
--- NOTE | 2018-08-11 10:42 | CONSULT ---
Consult Consult Specialty:: PULM/CCM Referred by:: IRINEO Reason for Consultation:: Trach - History of Present Illness Chief Complaint: Abdominal pain / SOB History of Present Illness: 52 F, well known to me from multiple and complicated admissions both at [facility] and at [facility]. Chronic Trach that had a trial of deacculation and Trach was reinserted due to chronic respiratory failure. She is no longer vented, but requires supplemental Trach collar O2. Admitted via the ER due to vomiting and abdominal pain. No travel history or sick contacts. Breathing seems affected when GI symptoms are exacerbated. CXR: No gross change in previous chronic lung disease - History Source History Provided By: Patient Limitations to Obtaining History: No Limitations - Past Medical History Cardio/Vascular: Yes: AFIB (Paroxysmal), HTN, Hyperlipdemia Pulmonary: Yes: Asthma, COPD, O2 Dependent Gastrointestinal: Yes: GI Bleed Renal/: Yes: Cancer (Uterine), Other ([place] in the past) ...: No Infectious Disease: Yes: C-Diff (june 2014), Other (Osteomyelitis of thoracic spine) Psych: Yes: Anxiety, Bipolar, Depression Musculoskeletal: Yes: Chronic low back pain Endocrine: Yes: Diabetes Mellitus Additional Medical History: Frequent c/o abdominal pain-extensive w/u in the past negative. Presumed adhesions from prior surgeries. - Past Surgical History Past Surgical History: Yes: Appendectomy, Colectomy (By description, right colon resection with anastamosis noted on colonoscopy 2013), Hysterectomy (ADE/ BSO), Stent - Alcohol/Substance Use Hx Alcohol Use: No - Smoking History Smoking history: Unknown if ever smoked Have you smoked in the past 12 months: No Aproximately how many cigarettes per day: 3 If you are a former smoker, when did you quit?: 2014 - Social History Usual Living Arrangement: With Significant Other 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) History of Recent Travel: No Home Medications - Allergies Allergies/Adverse Reactions: Allergies Allergy/AdvReac Type Severity Reaction Status Date / Time oxycodone [Oxycodone] Allergy Severe Nausea Verified 08/07/18 16:07 oxycodone HCl [From Percocet] Allergy Severe Nausea Verified 08/07/18 16:07 aspirin Allergy Mild Verified 08/07/18 16:07 blueberry [Blueberry] Allergy Mild Swelling Verified 08/07/18 16:07 fentanyl Allergy Verified 08/07/18 16:07 - Home Medications Home Medications: Ambulatory Orders Albuterol Sulfate Inhaler - [Ventolin HFA Inhaler -] 2 puff IH Q4H PRN #0 inhaler 11/29/16 Acetaminophen [Tylenol .Regular Strength -] 650 mg PO Q6H PRN #0 tablet Apixaban [Eliquis -] 5 mg PO BID tablet 04/29/17 Baclofen 30 mg PO TID 07/09/18 Diltiazem HCl [Diltiazem 24Hr Cd] 240 mg PO BID 07/09/18 Gabapentin [Neurontin] 400 mg PO TID 07/09/18 HYDROmorphone [Dilaudid -] 4 mg PO Q4H PRN 07/09/18 Levocetirizine Dihydrochloride 5 mg PO HS 07/09/18 Levothyroxine [Synthroid -] 50 mcg PO DAILY 07/09/18 Multivitamin [One Daily] 1 each PO DAILY 07/09/18 Rosuvastatin Calcium [Crestor] 10 mg PO DAILY 07/09/18 Venlafaxine HCl ER [Effexor Xr -] 75 mg PO DAILY 07/09/18 Vortioxetine Hydrobromide [Trintellix] 20 mg PO DAILY 07/09/18 predniSONE [Deltasone -] 10 mg PO DAILY 07/09/18 Ondansetron [Zofran *Odt*] 8 mg PO BID PRN #90 tab.rapdis 07/13/18 Alprazolam [Xanax] 0.25 mg PO TID MDD 2 08/07/18 Desoximetasone [Topicort] 1 ml TP BID 08/07/18 Doxepin HCl [Sinequan -] 25 mg PO DAILY 08/07/18 Famotidine 40 mg PO BID 08/07/18 Hydromorphone HCl 4 mg PO Q4H 08/07/18 Mirabegron [Myrbetriq] 50 mg PO DAILY 08/07/18 Montelukast Na [Singulair -] 10 mg PO HS 08/07/18 Ondansetron HCl [Zofran] 4 mg PO DAILY #30 tablet 08/07/18 Zolpidem Tartrate 10 mg PO HS 08/07/18 Acyclovir [Zovirax -] 800 mg PO 5XD #50 tablet 08/08/18 Family Disease History - Family Disease History Family Disease History: Diabetes: Mother (Alive: heart surgery), Heart Disease: Mother, [place]: Father (: leukemia), Other: Brother (2,Healthy), Sister (1, Healthy) Other Family History: No children. No family history of colorectal cancer or other GI malignancy Review of Systems - Review of Systems Constitutional: reports: Loss of Appetite, Malaise. denies: Chills, Fever, Night Sweats, Unintentional Wgt. Loss Eyes: reports: No Symptoms HENT: reports: Nasal Congestion Neck: reports: No Symptoms Cardiovascular: reports: Chest Pain, Shortness of Breath. denies: Edema, Palpitations Respiratory: reports: Cough, SOB, SOB on Exertion. denies: Hemoptysis, Snoring , Wheezing Gastrointestinal: reports: Abdominal Pain, Bloating, Constipation, Nausea. denies: Rectal Bleeding, Vomiting Blood Genitourinary: reports: No Symptoms Breasts: reports: No Symptoms Reported Musculoskeletal: reports: Back Pain, Muscle Cramps Integumentary: reports: No Symptoms Neurological: reports: No Symptoms Endocrine: reports: No Symptoms Hematology/Lymphatic: reports: No Symptoms Psychiatric: reports: No Symptoms Physical Exam Vital Signs: Vital Signs Temperature 98.6 F 08/11/18 07:12 Pulse Rate 111 H 08/11/18 08:11 Respiratory Rate 22 08/11/18 07:12 Blood Pressure 138/88 08/11/18 07:12 O2 Sat by Pulse Oximetry (%) 99 08/11/18 08:11 Constitutional: Yes: No Distress, Obese Eyes: Yes: Conjunctiva Clear, EOM Intact HENT: Yes: Atraumatic, Normocephalic Neck: Yes: Trachea Midline, Other (Trach intact) Cardiovascular: Yes: Regular Rate and Rhythm Respiratory: Yes: Cough, Diminished, Rhonchi. No: Accessory Muscle Use, Rales, SOB, Stridor, Tachypnea, Wheezes Gastrointestinal: Yes: Normal Bowel Sounds, Soft, Abdomen, Obese, Hernia Musculoskeletal: Yes: Back Pain, Joint Stiffness Extremities: Yes: Shortened Edema: No Peripheral Pulses WNL: Yes Integumentary: Yes: WNL Neurological: Yes: Alert, Oriented ...Motor Strength: WNL Psychiatric: Yes: WNL, Alert, Oriented Labs: CBC, BMP 08/11/18 06:30 08/11/18 06:30 Imaging - Results Chest X-ray: Report Reviewed, Image Reviewed Problem List - Problems (1) Nausea and vomiting Code(s): R11.2 - NAUSEA WITH VOMITING, UNSPECIFIED Qualifiers: Vomiting type: unspecified Vomiting Intractability: unspecified Qualified Code(s): R11.2 - Nausea with vomiting, unspecified (2) Abdominal pain Code(s): R10.9 - UNSPECIFIED ABDOMINAL PAIN (3) Anemia Code(s): D64.9 - ANEMIA, UNSPECIFIED (4) Hypothyroid Code(s): E03.9 - HYPOTHYROIDISM, UNSPECIFIED Qualifiers: Hypothyroidism type: unspecified Qualified Code(s): E03.9 - Hypothyroidism , unspecified (5) Insomnia disorder Code(s): G47.00 - INSOMNIA, UNSPECIFIED (6) Anxiety Code(s): F41.9 - ANXIETY DISORDER, UNSPECIFIED (7) Asthma Code(s): J45.909 - UNSPECIFIED ASTHMA, UNCOMPLICATED (8) Bipolar 2 disorder Code(s): F31.81 - BIPOLAR II DISORDER (9) Chronic back pain Code(s): M54.9 - DORSALGIA, UNSPECIFIED; G89.29 - OTHER CHRONIC PAIN (10) Chronic pain disorder Code(s): G89.4 - CHRONIC PAIN SYNDROME (11) Chronic respiratory failure with hypoxia Code(s): J96.11 - CHRONIC RESPIRATORY FAILURE WITH HYPOXIA (12) Constipation Code(s): K59.00 - CONSTIPATION, UNSPECIFIED Qualifiers: Constipation type: unspecified constipation type Qualified Code(s): K59.00 - Constipation, unspecified (13) GERD (gastroesophageal reflux disease) Code(s): K21.9 - GASTRO-ESOPHAGEAL REFLUX DISEASE WITHOUT ESOPHAGITIS (14) Gastritis Code(s): K29.70 - GASTRITIS, UNSPECIFIED, WITHOUT BLEEDING Qualifiers: Gastritis type: unspecified gastritis Chronicity: unspecified Gastritis bleeding: without bleeding Qualified Code(s): K29.70 - Gastritis, unspecified , without bleeding (15) HTN (hypertension) Code(s): I10 - ESSENTIAL (PRIMARY) HYPERTENSION Qualifiers: (16) Hyperlipidemia Code(s): E78.5 - HYPERLIPIDEMIA, UNSPECIFIED Qualifiers: (17) Neuropathy Code(s): G62.9 - POLYNEUROPATHY, UNSPECIFIED (18) Paroxysmal atrial fibrillation Code(s): I48.0 - PAROXYSMAL ATRIAL FIBRILLATION Assessment/Plan Trach collar O2 to maintain saturation BD TX RPN No indication for systemic steroids Do not suspect respiratory tract infection GI workup ongoing Will follow Thank you. Dr Castaneda
[2018-08-11] MEDS: VENLAFAXINE HCL 75 MG E.R. CAPSULES (FP) PO SCH (11:03)
[2018-08-11] MEDS: predniSONE 10 MG TABLET (UD) PO SCH (11:04)
[2018-08-11] MEDS: APIXABAN 5 MG TABLET PO SCH ×2 (11:04→22:18)
[2018-08-11] MEDS: PANTOPRAZOLE SODIUM 40 MG VIAL IVPB SCH (11:11)
--- NOTE | 2018-08-11 12:58 | EKG ---
Test Reason : Blood Pressure : / mmHG Vent. Rate : 110 BPM Atrial Rate : 110 BPM P-R Int : 152 ms QRS Dur : 082 ms QT Int : 336 ms P-R-T Axes : 039 005 053 degrees QTc Int : 454 ms SINUS TACHYCARDIA OTHERWISE NORMAL ECG WHEN COMPARED WITH ECG OF 10-AUG-2018 09:02, NO SIGNIFICANT CHANGE WAS FOUND Confirmed by FANNY KLEIN MD ([id number]) on 08/11/2018 12:57:46 PM Referred By: Jose BETANCOURT Confirmed By:FANNY KLEIN MD
[2018-08-11] MEDS: DOXEPIN HCL 25 MG CAPSULE PO SCH (14:09)
--- NOTE | 2018-08-11 14:11 | PN ---
Progress Note (short form) - Note Progress Note: ID consult dictated imp/reccd 52 year old female admitted with vomiting, constipation, no bm for 3 days transient leukocytosis that has resolved elevated lactic acid vomiting has resolved still no BM c/o vaginal itching and sacral rash for last one month no other complaints suggest topical antifungal cream observe off antibiotics GI f/u please call back if needed Problem List - Problems (1) Nausea and vomiting Code(s): R11.2 - NAUSEA WITH VOMITING, UNSPECIFIED Qualifiers: Vomiting type: unspecified Vomiting Intractability: unspecified Qualified Code(s): R11.2 - Nausea with vomiting, unspecified (2) Constipation Code(s): K59.00 - CONSTIPATION, UNSPECIFIED (3) Leukocytosis Code(s): D72.829 - ELEVATED WHITE BLOOD CELL COUNT, UNSPECIFIED (4) Rash Code(s): R21 - RASH AND OTHER NONSPECIFIC SKIN ERUPTION
--- NOTE | 2018-08-11 16:54 | CONS ---
DATE OF CONSULTATION: 08/11/2018 HISTORY OF PRESENT ILLNESS: This is a 52-year-old woman who presented to the emergency room on August 10, 2018 for vomiting. She had a recent CT scan on August 07 when she presented on that day, also because of vomiting. They have all been unrevealing except for a fatty liver. She was noted to be hyperglycemic. She is on chronic steroids and has a tracheostomy. She reports she has not had a bowel movement for the last three days. I was asked to see her because her white count and lactic acid were elevated. She was given some fluids and pain medications in the emergency room and she has had an abdominal x-ray. I was asked to see her for leukocytosis and lactic acid. The leukocytosis resolved overnight off antibiotics, as has her vomiting. She has some residual nausea but has not vomited. She has still not had a bowel movement and is scheduled to have an enema today. She reports to me that she has had an itchy rash on her backside that she is requesting I look at as well as vaginal itching. PAST MEDICAL HISTORY: Notable for a history of paroxysmal atrial fibrillation, hypertension, hyperlipidemia, asthma and COPD. She is oxygen dependent. She has a history of chronic respiratory failure. She still has a tracheostomy and requires oxygen. She has been home from a retirement facility since February. She has a history of GI bleed, uterine cancer. She had Clostridium difficile in 2013. She has a history of osteomyelitis of the thoracic spine. She has a history of anxiety, bipolar disorder, chronic low back pain and diabetes. She has had abdominal pain workups in the past. She states she has had adhesions. PAST SURGICAL HISTORY: Appendectomy, hysterectomy, ADE/BSO and reports that at the time of the BSO, she had part of her colon resected. SOCIAL HISTORY: She quit smoking in 2014. She lives with her mother. She has been home from a retirement facility since February. 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 There has been no recent travel. FAMILY HISTORY: Noncontributory. ALLERGIES: OXYCODONE, ASPIRIN, BLUEBERRIES AND FENTANYL. HOME MEDICATIONS: Acetaminophen, albuterol ipratropium nebulizer, alprazolam, apixaban, baclofen, diltiazem, Doxepin, gabapentin, hydromorphone, levothyroxine, metoclopramide, Singulair, Protonix, famotidine, Sinequan, diltiazem, acyclovir, prednisone, Zolpidem, Trintellix, Effexor, Crestor and Zofran. REVIEW OF SYSTEMS: She reports she has an itchy rash on her backside as well as in her vaginal area. She notes that she has a chronic cough that is unchanged. PHYSICAL EXAMINATION: Vital Signs: Temperature 98.6. She has had no fever. Pulse is 110, respiratory rate is 20, blood pressure is 130/80. She is saturating 99% on a tracheostomy collar. HEENT: Normocephalic. Her eyes are anicteric. Her face is cushingoid. Neck: She has a tracheostomy in place. Lungs: Diminished breath sounds at the bases. Heart: Regular rate and rhythm. Abdomen: She has a large, well-healed incision on her lower abdomen. She has positive bowel sounds. No discomfort on palpation. Extremities: No edema. Back: In the sacral area, she has an erythematous rash, consistent with fungal dermatitis. No skin breakdown. STUDIES: A chest x-ray was done and read as unchanged from prior. In summary, this is a 52-year-old woman admitted for GI symptoms related to vomiting and constipation. She has no current signs of lung infection or urinary tract infection. Her white count has resolved on its own. Would continue to follow her off antibiotics. She is on chronic steroids which would predispose her to fungal rash, so we will treat her with antifungal creams at this time, which I will order. Please call back as needed. ЮЛИЯ SORIA M.D. [id number]
[2018-08-11] MEDS: D5-1/2NS+20 MEQ KCL - 20 MEQ/1,000 ML INFUS.BAG IV SCH (17:37)
--- NOTE | 2018-08-11 18:06 | CON.PSY ---
Psychiatry Consult Chief Complaint: 52 year old female with multiple chronic medical and Psych conditions> aptient known to me from previous admissions. Patient is seen by DR.Singh Paul for many years and is on [facility]. Patient does not want to cahngev any Psych meds. Claims she needs them. Symptoms: reports: Depressed Mood, Anxiety - Previous Psychiatric Treatment Outpatient: Less than 6 mos ago Inpatient: None - Previous Substance Abuse Treatment Outpatient: None Inpatient: None - Reason for Previous Treatment Reason for Previous Treatment: Major Depression, Anxiety or Panic Disorder - Current Medications Current Medications: Active Medications Acetaminophen (Tylenol -) 650 mg PO Q6H PRN PRN Reason: FEVER Albuterol/Ipratropium (Duoneb -) 1 amp NEB RQID [facility] Last Admin: 08/11/18 16:58 Dose: 1 amp Alprazolam (Xanax -) 0.25 mg PO TID [facility] Last Admin: 08/11/18 14:09 Dose: 0.25 mg Apixaban (Eliquis -) 5 mg PO BID [facility] Last Admin: 08/11/18 11:04 Dose: 5 mg Baclofen (Lioresal -) 10 mg PO TID [facility] Last Admin: 08/11/18 14:09 Dose: 10 mg Clotrimazole (Lotrimin 1% Cream -) 1 applic TP BID [facility] Diltiazem HCl (Cardizem Cd -) 240 mg PO BID [facility] Last Admin: 08/11/18 11:03 Dose: 240 mg Doxepin HCl (Sinequan -) 25 mg PO DAILY [facility] Last Admin: 08/11/18 14:09 Dose: 25 mg Gabapentin (Neurontin -) 400 mg PO TID [facility] Last Admin: 08/11/18 14:09 Dose: 400 mg Hydromorphone HCl (Dilaudid -) 4 mg PO Q4HPO [facility] Last Admin: 08/11/18 17:37 Dose: 4 mg Potassium Chloride/Dextrose/Sod Cl (D5-1/2ns+20 Meq Kcl -) 20 meq in 1,000 mls @ 75 mls/hr IV ASDIR [facility] Last Admin: 08/11/18 17:37 Dose: 75 mls/hr Levothyroxine Sodium (Synthroid -) 50 mcg PO DAILY@0700 [facility] Last Admin: 08/11/18 11:04 Dose: 50 mcg Miconazole Nitrate (Monistat-7 Vaginal Suppository -) 100 mg PV HS [facility] Montelukast Sodium (Singulair -) 10 mg PO HS [facility] Last Admin: 08/10/18 21:42 Dose: 10 mg Non-Formulary Medication (Mirabegron [Myrbetriq]) 50 mg PO DAILY [facility] Non-Formulary Medication (Vortioxetine Hydrobromide [Trintellix]) 20 mg PO DAILY [facility] Pantoprazole Sodium (Protonix Iv) 40 mg IVPB DAILY [facility] Last Admin: 08/11/18 11:11 Dose: 40 mg Prednisone (Deltasone -) 10 mg PO DAILY [facility] Last Admin: 08/11/18 11:04 Dose: 10 mg Rosuvastatin Calcium (Crestor -) 10 mg PO [facility] Last Admin: 08/10/18 21:41 Dose: 10 mg Venlafaxine HCl (Effexor Xr -) 75 mg PO DAILY [facility] Last Admin: 08/11/18 11:03 Dose: 75 mg Zolpidem Tartrate (Ambien -) 10 mg PO [facility] Last Admin: 08/10/18 21:40 Dose: 10 mg - Allergies Allergies: Allergies Allergy/AdvReac Type Severity Reaction Status Date / Time oxycodone [Oxycodone] Allergy Severe Nausea Verified 08/07/18 16:07 oxycodone HCl [From Percocet] Allergy Severe Nausea Verified 08/07/18 16:07 aspirin Allergy Mild Verified 08/07/18 16:07 blueberry [Blueberry] Allergy Mild Swelling Verified 08/07/18 16:07 fentanyl Allergy Verified 08/07/18 16:07 - Current Living Status Usual Living Arrangement: With Significant Other - Current Mental Status Evaluation Appearance: Well Groomed Attitude: Cooperative - Affect Affect: Constrictive Appropriateness: Appropriate to Content - Mood Mood: Anxious - Speech/Language Expressive: Coherent - Psychomotor Activity Psychomotor Activity: Slowed - Thought Process Thought Process: Intact - Thought Content Hallucinations: Absent Delusions: Absent - Self Perception Self Perception: No Impairment - Cognition Attention: Alert Orientation: Time Memory, Immediate Recall: Intact Memory, Short Term: 2/3 Memory, Remote with Promptin/3 - Abstraction Proverb Interpretation: Intact Judgement: Intact - Insight Insight: Intact - Suicidal Ideation Suicidal Ideation: No - Homicidal Ideation Homicidal Ideation: No Assessment/Plan 1) Continue with [facility] Psych meds.
[2018-08-11] MEDS: ROSUVASTATIN CA 10 MG TABLET (FP) PO SCH (22:16)
[2018-08-11] MEDS: MICONAZOLE NITRATE 100 MG SUPP SUPP.VAG PV SCH (22:16)
[2018-08-11] MEDS: MONTELUKAST NA 10 MG TABLET PO SCH (22:18)
[2018-08-11] MEDS: ZOLPIDEM TARTRATE 5 MG TABLET PO SCH (22:19)
[2018-08-11] MEDS: CLOTRIMAZOLE 1% CREAM 15 GM TUBE TP SCH (22:23)
[2018-08-12] MEDS: D5-1/2NS+20 MEQ KCL - 20 MEQ/1,000 ML INFUS.BAG IV SCH (00:38)
[2018-08-12] MEDS ORDERED: HYDROmorphone HCL 2 MG TABLET ONE (05:06)
[2018-08-12] MEDS: POTASSIUM CHLORIDE 10 MEQ in SODIUM CHLORIDE 0.45% 1,000 ML IVPB SCH ×2 (06:41→20:25)
[2018-08-12] MEDS: ALPRAZolam 0.25 MG TABLET PO SCH ×3 (06:43→22:08)
[2018-08-12] MEDS: BACLOFEN 10 MG TABLET (FP) PO SCH ×3 (06:43→22:08)
[2018-08-12] MEDS: GABAPENTIN 400 MG CAPSULE (FP) PO SCH ×3 (06:44→22:07)
[2018-08-12] MEDS: LEVOTHYROXINE NA 50 MCG TABLET (FP) PO SCH (06:44)
[2018-08-12] MEDS: INSULIN SLIDING SCALE (NOVOLOG) 1 VIAL SQ SCH ×4 (06:49→22:16)
[2018-08-12] MEDS ORDERED: PT OWN MED DRAWER 7, Y5N ONE ×2 (07:06→22:02)
[2018-08-12] MEDS: ALBUTEROL SO4 2.5/IPRATROPIUM 0.5 INH SOL 3 ML VIAL.NEB. NEB SCH ×3 (08:34→20:19)
[2018-08-12] MEDS: PANTOPRAZOLE SODIUM 40 MG VIAL IVPB SCH (10:00)
[2018-08-12] MEDS: ACETAMINOPHEN 325 MG TABLET (FP) PO PRN (10:00)
[2018-08-12] MEDS: DOXEPIN HCL 25 MG CAPSULE PO SCH (10:01)
[2018-08-12] MEDS: VENLAFAXINE HCL 75 MG E.R. CAPSULES (FP) PO SCH (10:01)
[2018-08-12] MEDS: predniSONE 10 MG TABLET (UD) PO SCH (10:01)
[2018-08-12] MEDS: APIXABAN 5 MG TABLET PO SCH ×2 (10:01→22:09)
[2018-08-12] MEDS: CLOTRIMAZOLE 1% CREAM 15 GM TUBE TP SCH ×2 (10:07→22:29)
[2018-08-12] MEDS ORDERED: INSULIN (NOVOLOG) ASPART 100 UNITS/ML 10ML VIAL ONE ×2 (11:00→16:56)
[2018-08-12] MEDS ORDERED: ONDANSETRON 4 MG/2 ML VIAL IVPB PRN (11:54)
[2018-08-12] MEDS ORDERED: NYSTATIN/TRIAMCINOLONE TOPICAL CREAM 15 GM TUBE TP SCH (13:00)
--- NOTE | 2018-08-12 13:05 | PN ---
Progress Note, Physician Chief Complaint: nauseous vomiting Reglan iv ordered bgm elevated - Current Medication List Current Medications: Active Medications Acetaminophen (Tylenol -) 650 mg PO Q6H PRN PRN Reason: FEVER Last Admin: 08/12/18 10:00 Dose: 650 mg Albuterol/Ipratropium (Duoneb -) 1 amp NEB RQID [facility] Last Admin: 08/12/18 12:03 Dose: 1 amp Alprazolam (Xanax -) 0.25 mg PO TID [facility] Last Admin: 08/12/18 06:43 Dose: 0.25 mg Apixaban (Eliquis -) 5 mg PO BID [facility] Last Admin: 08/12/18 10:01 Dose: 5 mg Baclofen (Lioresal -) 10 mg PO TID [facility] Last Admin: 08/12/18 06:43 Dose: 10 mg Clotrimazole (Lotrimin 1% Cream -) 1 applic TP BID [facility] Last Admin: 08/12/18 10:07 Dose: 1 applic Diltiazem HCl (Cardizem Cd -) 240 mg PO BID [facility] Last Admin: 08/12/18 10:01 Dose: 240 mg Doxepin HCl (Sinequan -) 25 mg PO DAILY [facility] Last Admin: 08/12/18 10:01 Dose: 25 mg Gabapentin (Neurontin -) 400 mg PO TID [facility] Last Admin: 08/12/18 06:44 Dose: 400 mg Hydromorphone HCl (Dilaudid -) 4 mg PO Q4HPO [facility] Last Admin: 08/12/18 11:01 Dose: 4 mg Potassium Chloride 10 meq/ (Sodium Chloride) 1,005 mls @ 75 mls/hr IVPB ASDIR [facility] Last Admin: 08/12/18 06:41 Dose: 75 mls/hr Insulin Aspart (Novolog Vial Sliding Scale -) 1 vial SQ ACHS [facility]; Protocol Last Admin: 08/12/18 11:02 Dose: 5 units Levothyroxine Sodium (Synthroid -) 50 mcg PO DAILY@0700 [facility] Last Admin: 08/12/18 06:44 Dose: 50 mcg Miconazole Nitrate (Monistat-7 Vaginal Suppository -) 100 mg PV [facility] Last Admin: 08/11/18 22:16 Dose: 100 mg Montelukast Sodium (Singulair -) 10 mg PO [facility] Last Admin: 08/11/18 22:18 Dose: 10 mg Non-Formulary Medication (Mirabegron [Myrbetriq]) 50 mg PO DAILY [facility] Non-Formulary Medication (Vortioxetine Hydrobromide [Trintellix]) 20 mg PO DAILY [facility] Ondansetron HCl (Zofran Injection) 4 mg IVPB Q6H PRN PRN Reason: NAUSEA Last Admin: 08/12/18 12:22 Dose: 4 mg Pantoprazole Sodium (Protonix Iv) 40 mg IVPB DAILY [facility] Last Admin: 08/12/18 10:00 Dose: 40 mg Prednisone (Deltasone -) 10 mg PO DAILY [facility] Last Admin: 08/12/18 10:01 Dose: 10 mg Rosuvastatin Calcium (Crestor -) 10 mg PO [facility] Last Admin: 08/11/18 22:16 Dose: 10 mg Venlafaxine HCl (Effexor Xr -) 75 mg PO DAILY [facility] Last Admin: 08/12/18 10:01 Dose: 75 mg Zolpidem Tartrate (Ambien -) 10 mg PO [facility] Last Admin: 08/11/18 22:19 Dose: 10 mg - Objective Vital Signs: Vital Signs Temperature 97.7 F 08/12/18 10:00 Pulse Rate 105 H 08/12/18 10:00 Respiratory Rate 20 08/12/18 10:00 Blood Pressure 125/71 08/12/18 10:00 O2 Sat by Pulse Oximetry (%) 99 08/12/18 09:00 Constitutional: Yes: Calm Neck: Yes: Other (trach) Cardiovascular: Yes: Regular Rate and Rhythm, S1, S2 Respiratory: Yes: CTA Bilaterally Gastrointestinal: Yes: Normal Bowel Sounds, Soft Edema: No Neurological: Yes: Alert Labs: INR, PTT INR 1.40 (0.83-1.09) H 08/10/18 09:31 Problem List - Problems (1) Nausea and vomiting Assessment/Plan: could be secondary to gastroperesis insulin sliding sclae hgb1c ordered iv reglan gi eval noted endocrine consulted wbc count improved current labs pending Code(s): R11.2 - NAUSEA WITH VOMITING, UNSPECIFIED Qualifiers: Vomiting type: unspecified Vomiting Intractability: unspecified Qualified Code(s): R11.2 - Nausea with vomiting, unspecified (2) Rash Assessment/Plan: anti fungal cream Code(s): R21 - RASH AND OTHER NONSPECIFIC SKIN ERUPTION (3) Hypothyroid Assessment/Plan: synthroid tsh ordered Code(s): E03.9 - HYPOTHYROIDISM, UNSPECIFIED Qualifiers: Hypothyroidism type: unspecified Qualified Code(s): E03.9 - Hypothyroidism , unspecified (4) Afib Assessment/Plan: cardizem and eliquis Code(s): I48.91 - UNSPECIFIED ATRIAL FIBRILLATION
[2018-08-12 13:06] LABS: BASO % 0.4 % (0-2.0); EOS % 1.3 % (0-4.5); HEMOGLOBIN 8.7 GM/dL (10.7-15.3); LYMPH % 7.4 % (8-40); MCH 23.8 pg (25.7-33.7); MCHC 31.1 g/dl (32.0-36.0); MEAN CELL VOLUME 76.8 fl (80-96); MEAN PLT VOLUME 9.4 fl (7.5-11.1); MONO % 5.4 % (3.8-10.2); NEUT % 85.5 % (42.8-82.8); PLATELET COUNT 245 K/MM3 (134-434); RBC 3.64 M/mm3 (3.60-5.2); RDW 18.3 % (11.6-15.6); WHITE BLOOD COUNT 9.9 K/mm3 (4.0-10.0)
[2018-08-12 13:33] LABS: ALK PHOS 105 U/L (45-117); ANION GAP 8 MMOL/L (8-16); BILIRUBIN,TOTAL 0.2 mg/dL (0.2-1); BLOOD UREA NITROGEN 9 mg/dL (7-18); CHLORIDE 100 mmol/L (98-107); CO2 32 mmol/L (21-32); CREATININE 0.5 mg/dL (0.55-1.3); GLUCOSE,RANDOM 219 mg/dL (74-106); MAGNESIUM 1.7 mg/dL (1.8-2.4); POTASSIUM 3.5 mmol/L (3.5-5.1); SGOT/AST 16 U/L (15-37); SGPT/ALT 31 U/L (13-61); SODIUM 139 mmol/L (136-145); TOT PROT 6.1 g/dl (6.4-8.2)
[2018-08-12] MEDS: METOCLOPRAMIDE HCL INJECTION 10 MG/2 ML VIAL IVPUSH PRN (17:05)
[2018-08-12] MEDS: MONTELUKAST NA 10 MG TABLET PO SCH (22:07)
[2018-08-12] MEDS: ZOLPIDEM TARTRATE 5 MG TABLET PO SCH (22:07)
[2018-08-12] MEDS: ROSUVASTATIN CA 10 MG TABLET (FP) PO SCH (22:07)
[2018-08-12] MEDS: MICONAZOLE NITRATE 100 MG SUPP SUPP.VAG PV SCH (22:09)
[2018-08-12] MEDS ORDERED: POTASSIUM CHLORIDE 10 MEQ in SODIUM CHLORIDE 0.45% 1,000 ML IVPB SCH (22:15)
--- NOTE | 2018-08-12 22:59 | CONSULT ---
Consult Consult Specialty:: endocrine Referred by:: dr.annabi guerrero Reason for Consultation:: hyperglycemia - History of Present Illness Chief Complaint: high sugars History of Present Illness: 52-year-old female with multiple medical problems including diabetes, history of admissions for nausea/vomiting suspicious for gastroparesis (last similar presentation was in June and seen again in the emergency Department 3 days ago ) presents now with persistent nausea/vomiting not improving at home with Zofran since admission required ivfluid rehydration,and iv reglan,seen by gi, note appreciated,feel hungry and asking to eat,feels pills and not eating made her vomit.blood sugars have been elevated despite not eating. - History Source History Provided By: Patient - Past Medical History Cardio/Vascular: Yes: AFIB (Paroxysmal), HTN, Hyperlipdemia Pulmonary: Yes: Asthma, COPD, O2 Dependent Gastrointestinal: Yes: GI Bleed Renal/: Yes: Cancer (Uterine), Other ([place] in the past) ...: No Infectious Disease: Yes: C-Diff (june 2014), Other (Osteomyelitis of thoracic spine) Psych: Yes: Anxiety, Bipolar, Depression Musculoskeletal: Yes: Chronic low back pain Endocrine: Yes: Diabetes Mellitus Additional Medical History: Frequent c/o abdominal pain-extensive w/u in the past negative. Presumed adhesions from prior surgeries. - Past Surgical History Past Surgical History: Yes: Appendectomy, Colectomy (By description, right colon resection with anastamosis noted on colonoscopy 2013), Hysterectomy (ADE/ BSO), Stent - Alcohol/Substance Use Hx Alcohol Use: No - Smoking History Smoking history: Unknown if ever smoked Have you smoked in the past 12 months: No Aproximately how many cigarettes per day: 3 If you are a former smoker, when did you quit?: 2015 - Social History Usual Living Arrangement: With Significant Other 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) History of Recent Travel: No Home Medications - Allergies Allergies/Adverse Reactions: Allergies Allergy/AdvReac Type Severity Reaction Status Date / Time oxycodone [Oxycodone] Allergy Severe Nausea Verified 08/07/18 16:07 oxycodone HCl [From Percocet] Allergy Severe Nausea Verified 08/07/18 16:07 aspirin Allergy Mild Verified 08/07/18 16:07 blueberry [Blueberry] Allergy Mild Swelling Verified 08/07/18 16:07 fentanyl Allergy Verified 08/07/18 16:07 - Home Medications Home Medications: Ambulatory Orders Albuterol Sulfate Inhaler - [Ventolin HFA Inhaler -] 2 puff IH Q4H PRN #0 inhaler 11/29/16 Acetaminophen [Tylenol .Regular Strength -] 650 mg PO Q6H PRN #0 tablet Apixaban [Eliquis -] 5 mg PO BID tablet 04/29/17 Baclofen 30 mg PO TID 07/09/18 Diltiazem HCl [Diltiazem 24Hr Cd] 240 mg PO BID 07/09/18 Gabapentin [Neurontin] 400 mg PO TID 07/09/18 HYDROmorphone [Dilaudid -] 4 mg PO Q4H PRN 07/09/18 Levocetirizine Dihydrochloride 5 mg PO HS 07/09/18 Levothyroxine [Synthroid -] 50 mcg PO DAILY 07/09/18 Multivitamin [One Daily] 1 each PO DAILY 07/09/18 Rosuvastatin Calcium [Crestor] 10 mg PO DAILY 07/09/18 Venlafaxine HCl ER [Effexor Xr -] 75 mg PO DAILY 07/09/18 Vortioxetine Hydrobromide [Trintellix] 20 mg PO DAILY 07/09/18 predniSONE [Deltasone -] 10 mg PO DAILY 07/09/18 Ondansetron [Zofran *Odt*] 8 mg PO BID PRN #90 tab.rapdis 07/13/18 Alprazolam [Xanax] 0.25 mg PO TID MDD 2 08/07/18 Desoximetasone [Topicort] 1 ml TP BID 08/07/18 Doxepin HCl [Sinequan -] 25 mg PO DAILY 08/07/18 Famotidine 40 mg PO BID 08/07/18 Hydromorphone HCl 4 mg PO Q4H 08/07/18 Mirabegron [Myrbetriq] 50 mg PO DAILY 08/07/18 Montelukast Na [Singulair -] 10 mg PO HS 08/07/18 Ondansetron HCl [Zofran] 4 mg PO DAILY #30 tablet 08/07/18 Zolpidem Tartrate 10 mg PO HS 08/07/18 Acyclovir [Zovirax -] 800 mg PO 5XD #50 tablet 08/08/18 Family Disease History - Family Disease History Family Disease History: Diabetes: Mother (Alive: heart surgery), Heart Disease: Mother, [place]: Father (: leukemia), Other: Brother (2,Healthy), Sister (1, Healthy) Other Family History: No children. No family history of colorectal cancer or other GI malignancy Review of Systems - Review of Systems Constitutional: reports: Lethargy Eyes: reports: No Symptoms HENT: reports: No Symptoms Neck: reports: No Symptoms Cardiovascular: reports: Shortness of Breath Respiratory: reports: Exercise Intolerance Gastrointestinal: reports: Bloating, Constipation, Nausea Genitourinary: reports: Frequency Musculoskeletal: reports: Muscle Pain, Muscle Cramps, Muscle Weakness Neurological: reports: Weakness Endocrine: reports: Unexplained Weight Loss Physical Exam Vital Signs: Vital Signs Temperature 97.7 F 08/12/18 10:00 Pulse Rate 105 H 08/12/18 10:00 Respiratory Rate 20 08/12/18 10:00 Blood Pressure 125/71 08/12/18 10:00 O2 Sat by Pulse Oximetry (%) 99 08/12/18 09:00 Constitutional: Yes: Anxious Eyes: Yes: EOM Intact HENT: Yes: Normocephalic Neck: Yes: Trachea Midline Cardiovascular: Yes: Regular Rate and Rhythm Respiratory: Yes: CTA Bilaterally Gastrointestinal: Yes: Normal Bowel Sounds ...Rectal Exam: Yes: Deferred Labs: CBC, BMP 08/12/18 12:38 08/12/18 12:38 Problem List - Problems (1) Diabetes mellitus with hyperosmolarity Code(s): E11.00 - TYPE 2 DIAB W HYPROSM W/O NONKET HYPRGLY-HYPROS COMA ([facility]) (2) Constipation Code(s): K59.00 - CONSTIPATION, UNSPECIFIED (3) Rash Code(s): R21 - RASH AND OTHER NONSPECIFIC SKIN ERUPTION (4) Abscess Code(s): L02.91 - CUTANEOUS ABSCESS, UNSPECIFIED (5) Acute and chronic respiratory failure with hypoxia Code(s): J96.21 - ACUTE AND CHRONIC RESPIRATORY FAILURE WITH HYPOXIA (6) Acute bronchitis Code(s): J20.9 - ACUTE BRONCHITIS, UNSPECIFIED Assessment/Plan Current Active Problems Constipation (Acute) Nausea and vomiting (Acute) Rash (Acute) hypothyroidism nancy diabetes mellitus hyperglycemia/diabetic gastroparesis Abnormal Lab Results 08/12/18 08/12/18 12:38 12:38 Hgb 8.7 L Hct 28.0 L MCV 76.8 L MCH 23.8 L MCHC 31.1 L RDW 18.3 H Absolute Neuts (auto) 8.4 H Neutrophils % 85.5 H Lymphocytes % 7.4 L D Creatinine 0.5 L Random Glucose 219 H Calcium 8.0 L Magnesium 1.7 L Total Protein 6.1 L Albumin 3.0 L Laboratory Results - last 24 hr 08/12/18 08/12/18 08/12/18 06:49 10:15 12:38 WBC RBC Hgb Hct MCV MCH MCHC RDW Plt Count MPV Absolute Neuts (auto) Neutrophils % Lymphocytes % Monocytes % Eosinophils % Basophils % Nucleated RBC % Sodium Potassium Chloride Carbon Dioxide Anion Gap BUN Creatinine Creat Clearance w eGFR POC Glucometer 345 213 Random Glucose Lactic Acid 1.5 Calcium Magnesium Total Bilirubin AST ALT Alkaline Phosphatase Total Protein Albumin 08/12/18 08/12/18 08/12/18 12:38 12:38 17:05 WBC 9.9 RBC 3.64 Hgb 8.7 L Hct 28.0 L MCV 76.8 L MCH 23.8 L MCHC 31.1 L RDW 18.3 H Plt Count 245 MPV 9.4 Absolute Neuts (auto) 8.4 H Neutrophils % 85.5 H Lymphocytes % 7.4 L D Monocytes % 5.4 Eosinophils % 1.3 Basophils % 0.4 Nucleated RBC % 0 Sodium 139 Potassium 3.5 Chloride 100 Carbon Dioxide 32 Anion Gap 8 BUN 9 Creatinine 0.5 L Creat Clearance w eGFR > 60 POC Glucometer 204 Random Glucose 219 H Lactic Acid Calcium 8.0 L Magnesium 1.7 L Total Bilirubin 0.2 AST 16 ALT 31 Alkaline Phosphatase 105 Total Protein 6.1 L Albumin 3.0 L 08/12/18 22:11 WBC RBC Hgb Hct MCV MCH MCHC RDW Plt Count MPV Absolute Neuts (auto) Neutrophils % Lymphocytes % Monocytes % Eosinophils % Basophils % Nucleated RBC % Sodium Potassium Chloride Carbon Dioxide Anion Gap BUN Creatinine Creat Clearance w eGFR POC Glucometer 236 Random Glucose Lactic Acid Calcium Magnesium Total Bilirubin AST ALT Alkaline Phosphatase Total Protein Albumin plan: bgm achs coverage novolog scale levemir doses as diet improves start and advance diet as tolerated check tsh free t4
[2018-08-13] MEDS: ACETAMINOPHEN 325 MG TABLET (FP) PO PRN ×3 (04:05→21:56)
[2018-08-13] MEDS ORDERED: PT OWN MED DRAWER 7, Y5N ONE ×2 (04:15→10:41)
[2018-08-13] MEDS: GABAPENTIN 400 MG CAPSULE (FP) PO SCH ×3 (05:56→21:57)
[2018-08-13] MEDS: BACLOFEN 10 MG TABLET (FP) PO SCH ×3 (05:56→21:57)
[2018-08-13] MEDS: ALPRAZolam 0.25 MG TABLET PO SCH ×3 (05:56→21:57)
[2018-08-13] MEDS: INSULIN SLIDING SCALE (NOVOLOG) 1 VIAL SQ SCH ×4 (06:39→21:59)
[2018-08-13] MEDS: INSULIN (LEVEMIR) 100 UNITS/ML UNITS SQ SCH (06:40)
[2018-08-13] MEDS: LEVOTHYROXINE NA 50 MCG TABLET (FP) PO SCH (07:19)
[2018-08-13] MEDS: METOCLOPRAMIDE HCL INJECTION 10 MG/2 ML VIAL IVPUSH PRN (07:19)
[2018-08-13] MEDS: ALBUTEROL SO4 2.5/IPRATROPIUM 0.5 INH SOL 3 ML VIAL.NEB. NEB SCH ×4 (07:36→20:20)
[2018-08-13] MEDS: APIXABAN 5 MG TABLET PO SCH ×2 (10:48→21:57)
[2018-08-13] MEDS: DOXEPIN HCL 25 MG CAPSULE PO SCH (10:48)
[2018-08-13] MEDS: PANTOPRAZOLE SODIUM 40 MG VIAL IVPB SCH (10:48)
[2018-08-13] MEDS: predniSONE 10 MG TABLET (UD) PO SCH (10:48)
[2018-08-13] MEDS: VENLAFAXINE HCL 75 MG E.R. CAPSULES (FP) PO SCH (10:48)
[2018-08-13] MEDS: CLOTRIMAZOLE 1% CREAM 15 GM TUBE TP SCH ×2 (10:49→21:58)
--- NOTE | 2018-08-13 11:22 | PN ---
Progress Note, Physician Chief Complaint: patient seen by endocrine complaining of nausea and migraine headache - Current Medication List Current Medications: Active Medications Acetaminophen (Tylenol -) 650 mg PO Q6H PRN PRN Reason: FEVER Last Admin: 08/13/18 10:48 Dose: 650 mg Albuterol/Ipratropium (Duoneb -) 1 amp NEB RQID [facility] Last Admin: 08/12/18 20:19 Dose: 1 amp Alprazolam (Xanax -) 0.25 mg PO TID [facility] Last Admin: 08/13/18 05:56 Dose: 0.25 mg Apixaban (Eliquis -) 5 mg PO BID [facility] Last Admin: 08/13/18 10:48 Dose: 5 mg Baclofen (Lioresal -) 10 mg PO TID [facility] Last Admin: 08/13/18 05:56 Dose: 10 mg Clotrimazole (Lotrimin 1% Cream -) 1 applic TP BID [facility] Last Admin: 08/13/18 10:49 Dose: 1 applic Diltiazem HCl (Cardizem Cd -) 240 mg PO BID [facility] Last Admin: 08/13/18 10:48 Dose: 240 mg Doxepin HCl (Sinequan -) 25 mg PO DAILY [facility] Last Admin: 08/13/18 10:48 Dose: 25 mg Gabapentin (Neurontin -) 400 mg PO TID [facility] Last Admin: 08/13/18 05:56 Dose: 400 mg Hydromorphone HCl (Dilaudid -) 4 mg PO Q4HPO [facility] Last Admin: 08/13/18 10:49 Dose: 4 mg Insulin Aspart (Novolog Vial Sliding Scale -) 1 vial SQ ACHS [facility]; Protocol Last Admin: 08/13/18 06:39 Dose: 5 units Insulin Detemir (Levemir Vial) 15 units SQ AM [facility] Last Admin: 08/13/18 06:40 Dose: 15 units Levothyroxine Sodium (Synthroid -) 50 mcg PO DAILY@0700 [facility] Last Admin: 08/13/18 07:19 Dose: 50 mcg Metoclopramide HCl (Reglan Injection -) 10 mg IVPUSH Q8H PRN PRN Reason: NAUSEA AND/OR VOMITING Last Admin: 08/13/18 07:19 Dose: 10 mg Miconazole Nitrate (Monistat-7 Vaginal Suppository -) 100 mg PV HS [facility] Last Admin: 08/12/18 22:09 Dose: 100 mg Montelukast Sodium (Singulair -) 10 mg PO [facility] Last Admin: 08/12/18 22:07 Dose: 10 mg Non-Formulary Medication (Mirabegron [Myrbetriq]) 50 mg PO DAILY [facility] Non-Formulary Medication (Vortioxetine Hydrobromide [Trintellix]) 20 mg PO DAILY [facility] Pantoprazole Sodium (Protonix Iv) 40 mg IVPB DAILY [facility] Last Admin: 08/13/18 10:48 Dose: 40 mg Prednisone (Deltasone -) 10 mg PO DAILY [facility] Last Admin: 08/13/18 10:48 Dose: 10 mg Rosuvastatin Calcium (Crestor -) 10 mg PO [facility] Last Admin: 08/12/18 22:07 Dose: 10 mg Venlafaxine HCl (Effexor Xr -) 75 mg PO DAILY [facility] Last Admin: 08/13/18 10:48 Dose: 75 mg Zolpidem Tartrate (Ambien -) 10 mg PO [facility] Last Admin: 08/12/18 22:07 Dose: 10 mg - Objective Vital Signs: Vital Signs Temperature 98.3 F 08/13/18 10:00 Pulse Rate 106 H 08/13/18 10:00 Respiratory Rate 20 08/13/18 10:00 Blood Pressure 102/62 08/13/18 10:00 O2 Sat by Pulse Oximetry (%) 100 08/12/18 21:00 Constitutional: Yes: Calm Cardiovascular: Yes: Regular Rate and Rhythm, S1, S2 Respiratory: Yes: CTA Bilaterally Gastrointestinal: Yes: Normal Bowel Sounds, Soft Labs: CBC, BMP 08/12/18 12:38 08/12/18 12:38 INR, PTT INR 1.40 (0.83-1.09) H 08/10/18 09:31 Problem List - Problems (1) Nausea and vomiting Assessment/Plan: could be secondary to gastroperesis insulin sliding sclae hgb1c ordered iv reglan gi eval noted endocrine consulted noted wbc count improved diet advanced Code(s): R11.2 - NAUSEA WITH VOMITING, UNSPECIFIED Qualifiers: Vomiting type: unspecified Vomiting Intractability: unspecified Qualified Code(s): R11.2 - Nausea with vomiting, unspecified (2) Rash Assessment/Plan: anti fungal cream Code(s): R21 - RASH AND OTHER NONSPECIFIC SKIN ERUPTION (3) Hypothyroid Assessment/Plan: synthroid tsh ordered Code(s): E03.9 - HYPOTHYROIDISM, UNSPECIFIED Qualifiers: Hypothyroidism type: unspecified Qualified Code(s): E03.9 - Hypothyroidism , unspecified (4) Afib Assessment/Plan: cardizem and eliquis Code(s): I48.91 - UNSPECIFIED ATRIAL FIBRILLATION Assessment/Plan plan to dc over the weekend once nausea improves and tolerates diet
--- NOTE | 2018-08-13 13:57 | PN ---
Progress Note, Physician History of Present Illness: PULMONARY ALERT,FEELING BETTER,-ABD PAIN.MILD CONGESTION - Current Medication List Current Medications: Active Medications Acetaminophen (Tylenol -) 650 mg PO Q6H PRN PRN Reason: FEVER Last Admin: 08/13/18 10:48 Dose: 650 mg Albuterol/Ipratropium (Duoneb -) [address] [facility] Last Admin: 08/12/18 20:19 Dose: 1 amp Alprazolam (Xanax -) 0.[address] [facility] Last Admin: 08/13/18 13:43 Dose: 0.25 mg Apixaban (Eliquis -) [address] [facility] Last Admin: 08/13/18 10:48 Dose: 5 mg Baclofen (Lioresal -) [address] [facility] Last Admin: 08/13/18 13:44 Dose: 10 mg Clotrimazole (Lotrimin 1% Cream -) [address] [facility] Last Admin: 08/13/18 10:49 Dose: 1 applic Diltiazem HCl (Cardizem Cd -) [address] [facility] Last Admin: 08/13/18 10:48 Dose: 240 mg Doxepin HCl (Sinequan -) [address] [facility] Last Admin: 08/13/18 10:48 Dose: 25 mg Gabapentin (Neurontin -) [address] [facility] Last Admin: 08/13/18 13:43 Dose: 400 mg Hydromorphone HCl (Dilaudid -) [address] [facility] Last Admin: 08/13/18 13:43 Dose: 4 mg Insulin Aspart (Novolog Vial Sliding Scale -) [address] [facility]; Protocol Last Admin: 08/13/18 11:45 Dose: 5 units Insulin Detemir (Levemir Vial) [address] [facility] Last Admin: 08/13/18 06:40 Dose: 15 units Levothyroxine Sodium (Synthroid -) 50 mcg PO DAILY@0700 [facility] Last Admin: 08/13/18 07:19 Dose: 50 mcg Metoclopramide HCl (Reglan Injection -) 10 mg IVPUSH Q8H PRN PRN Reason: NAUSEA AND/OR VOMITING Last Admin: 08/13/18 07:19 Dose: 10 mg Miconazole Nitrate (Monistat-7 Vaginal Suppository -) 100 mg PV HS [facility] Last Admin: 08/12/18 22:09 Dose: 100 mg Montelukast Sodium (Singulair -) 10 mg PO [facility] Last Admin: 08/12/18 22:07 Dose: 10 mg Non-Formulary Medication (Mirabegron [Myrbetriq]) [address] [facility] Non-Formulary Medication (Vortioxetine Hydrobromide [Trintellix]) [address] [facility] Pantoprazole Sodium (Protonix Iv) [address] [facility] Last Admin: 08/13/18 10:48 Dose: 40 mg Prednisone (Deltasone -) [address] [facility] Last Admin: 08/13/18 10:48 Dose: 10 mg Rosuvastatin Calcium (Crestor -) 10 mg PO [facility] Last Admin: 08/12/18 22:07 Dose: 10 mg Venlafaxine HCl (Effexor Xr -) [address] [facility] Last Admin: 08/13/18 10:48 Dose: 75 mg Zolpidem Tartrate (Ambien -) 10 mg PO [facility] Last Admin: 08/12/18 22:07 Dose: 10 mg - Objective Vital Signs: Vital Signs Temperature 98.3 F 08/13/18 10:00 Pulse Rate 106 H 08/13/18 10:00 Respiratory Rate 20 08/13/18 10:00 Blood Pressure 102/62 08/13/18 10:00 O2 Sat by Pulse Oximetry (%) 99 08/13/18 09:00 Constitutional: Yes: Well Nourished, Calm Eyes: Yes: WNL HENT: Yes: WNL Neck: Yes: Supple (TRACH) Cardiovascular: Yes: Pulse Irregular, S1, S2 Respiratory: Yes: Wheezes (FEW SCATTERED WHEEZES) Gastrointestinal: Yes: Normal Bowel Sounds, Soft Extremities: Yes: WNL Edema: No Labs: CBC, BMP 08/12/18 12:38 Assessment/Plan Problem List - Problems (1) Nausea and vomiting Code(s): R11.2 - NAUSEA WITH VOMITING, UNSPECIFIED Qualifiers: Vomiting type: unspecified Vomiting Intractability: unspecified Qualified Code(s): R11.2 - Nausea with vomiting, unspecified (2) Abdominal pain Code(s): R10.9 - UNSPECIFIED ABDOMINAL PAIN (3) Anemia Code(s): D64.9 - ANEMIA, UNSPECIFIED (4) Hypothyroid Code(s): E03.9 - HYPOTHYROIDISM, UNSPECIFIED Qualifiers: Hypothyroidism type: unspecified Qualified Code(s): E03.9 - Hypothyroidism , unspecified (5) Insomnia disorder Code(s): G47.00 - INSOMNIA, UNSPECIFIED (6) Anxiety Code(s): F41.9 - ANXIETY DISORDER, UNSPECIFIED (7) Asthma Code(s): J45.909 - UNSPECIFIED ASTHMA, UNCOMPLICATED (8) Bipolar 2 disorder Code(s): F31.81 - BIPOLAR II DISORDER (9) Chronic back pain Code(s): M54.9 - DORSALGIA, UNSPECIFIED; G89.29 - OTHER CHRONIC PAIN (10) Chronic pain disorder Code(s): G89.4 - CHRONIC PAIN SYNDROME (11) Chronic respiratory failure with hypoxia Code(s): J96.11 - CHRONIC RESPIRATORY FAILURE WITH HYPOXIA (12) Constipation Code(s): K59.00 - CONSTIPATION, UNSPECIFIED Qualifiers: Constipation type: unspecified constipation type Qualified Code(s): K59.00 - Constipation, unspecified (13) GERD (gastroesophageal reflux disease) Code(s): K21.9 - GASTRO-ESOPHAGEAL REFLUX DISEASE WITHOUT ESOPHAGITIS (14) Gastritis Code(s): K29.70 - GASTRITIS, UNSPECIFIED, WITHOUT BLEEDING Qualifiers: Gastritis type: unspecified gastritis Chronicity: unspecified Gastritis bleeding: without bleeding Qualified Code(s): K29.70 - Gastritis, unspecified , without bleeding (15) HTN (hypertension) Code(s): I10 - ESSENTIAL (PRIMARY) HYPERTENSION Qualifiers: (16) Hyperlipidemia Code(s): E78.5 - HYPERLIPIDEMIA, UNSPECIFIED Qualifiers: (17) Neuropathy Code(s): G62.9 - POLYNEUROPATHY, UNSPECIFIED (18) Paroxysmal atrial fibrillation Code(s): I48.0 - PAROXYSMAL ATRIAL FIBRILLATION Assessment/Plan Trach collar O2 to maintain saturation BD TX RPN No indication for systemic steroids GI workup ongoing DR RUFFIN
[2018-08-13] MEDS ORDERED: INSULIN (NOVOLOG) ASPART 100 UNITS/ML 10ML VIAL ONE (17:11)
[2018-08-13] MEDS: ZOLPIDEM TARTRATE 5 MG TABLET PO SCH (21:56)
[2018-08-13] MEDS: MONTELUKAST NA 10 MG TABLET PO SCH (21:57)
[2018-08-13] MEDS: ROSUVASTATIN CA 10 MG TABLET (FP) PO SCH (21:57)
[2018-08-13] MEDS: MICONAZOLE NITRATE 100 MG SUPP SUPP.VAG PV SCH (22:00)
[2018-08-13] MEDS ORDERED: ALBUTEROL SO4 2.5/IPRATROPIUM 0.5 INH SOL 3 ML VIAL.NEB. NEB ONE (23:30)
[2018-08-14] MEDS ORDERED: PT OWN MED DRAWER 7, Y5N ONE ×2 (03:29→10:48)
[2018-08-14] MEDS: METOCLOPRAMIDE HCL INJECTION 10 MG/2 ML VIAL IVPUSH PRN (05:47)
[2018-08-14] MEDS: ACETAMINOPHEN 325 MG TABLET (FP) PO PRN (05:50)
[2018-08-14] MEDS: GABAPENTIN 400 MG CAPSULE (FP) PO SCH ×3 (05:51→21:56)
[2018-08-14] MEDS: ALPRAZolam 0.25 MG TABLET PO SCH ×3 (05:51→21:56)
[2018-08-14] MEDS: BACLOFEN 10 MG TABLET (FP) PO SCH ×3 (05:53→21:56)
[2018-08-14] MEDS: LEVOTHYROXINE NA 50 MCG TABLET (FP) PO SCH (06:33)
[2018-08-14] MEDS: INSULIN (LEVEMIR) 100 UNITS/ML UNITS SQ SCH (06:33)
[2018-08-14] MEDS: INSULIN SLIDING SCALE (NOVOLOG) 1 VIAL SQ SCH ×4 (06:34→21:58)
[2018-08-14] MEDS ORDERED: INSULIN (NOVOLOG) ASPART 100 UNITS/ML 10ML VIAL ONE ×3 (06:40→16:41)
[2018-08-14] MEDS: ALBUTEROL SO4 2.5/IPRATROPIUM 0.5 INH SOL 3 ML VIAL.NEB. NEB SCH ×5 (08:30→19:45)
[2018-08-14 08:39] LABS: BASO % 0.9 % (0-2.0); EOS % 1.9 % (0-4.5); HEMATOCRIT 27.8 % (32.4-45.2); HEMOGLOBIN 8.5 GM/dL (10.7-15.3); LYMPH % 14.1 % (8-40); MCH 23.5 pg (25.7-33.7); MCHC 30.6 g/dl (32.0-36.0); MEAN CELL VOLUME 76.5 fl (80-96); MEAN PLT VOLUME 8.8 fl (7.5-11.1); MONO % 8.3 % (3.8-10.2); NEUT % 74.8 % (42.8-82.8); PLATELET COUNT 233 K/MM3 (134-434); RBC 3.63 M/mm3 (3.60-5.2); RDW 18.6 % (11.6-15.6); WHITE BLOOD COUNT 6.6 K/mm3 (4.0-10.0)
[2018-08-14 09:24] LABS: ALBUMIN 2.6 g/dl (3.4-5.0); ALK PHOS 97 U/L (45-117); ANION GAP 4 MMOL/L (8-16); BILIRUBIN,TOTAL 0.2 mg/dL (0.2-1); BLOOD UREA NITROGEN 13 mg/dL (7-18); CALCIUM 7.7 mg/dL (8.5-10.1); CHLORIDE 97 mmol/L (98-107); CO2 37 mmol/L (21-32); CREATININE 0.7 mg/dL (0.55-1.3); GLUCOSE,RANDOM 230 mg/dL (74-106); MAGNESIUM 1.8 mg/dL (1.8-2.4); POTASSIUM 3.6 mmol/L (3.5-5.1); SGOT/AST 14 U/L (15-37); SGPT/ALT 26 U/L (13-61); SODIUM 138 mmol/L (136-145); TOT PROT 5.7 g/dl (6.4-8.2)
[2018-08-14] MEDS: PANTOPRAZOLE SODIUM 40 MG VIAL IVPB SCH (10:57)
[2018-08-14] MEDS: predniSONE 10 MG TABLET (UD) PO SCH (10:57)
[2018-08-14] MEDS: APIXABAN 5 MG TABLET PO SCH ×2 (10:58→21:56)
[2018-08-14] MEDS: CLOTRIMAZOLE 1% CREAM 15 GM TUBE TP SCH ×2 (10:58→21:56)
[2018-08-14] MEDS: DOXEPIN HCL 25 MG CAPSULE PO SCH (10:58)
[2018-08-14] MEDS: VENLAFAXINE HCL 75 MG E.R. CAPSULES (FP) PO SCH (10:58)
[2018-08-14] MEDS ORDERED: predniSONE 10 MG TABLET (UD) PO SCH (11:45)
--- NOTE | 2018-08-14 11:45 | PN ---
Progress Note, Physician History of Present Illness: PULMONARY ALERT,C/O CHEST CONGESTION, - Current Medication List Current Medications: Active Medications Acetaminophen (Tylenol -) 650 mg PO Q6H PRN PRN Reason: FEVER Last Admin: 08/14/18 05:50 Dose: 650 mg Albuterol/Ipratropium (Duoneb -) 1 amp NEB RQID [facility] Last Admin: 08/14/18 08:30 Dose: 1 amp Alprazolam (Xanax -) 0.25 mg PO TID [facility] Last Admin: 08/14/18 05:51 Dose: 0.25 mg Apixaban (Eliquis -) 5 mg PO BID [facility] Last Admin: 08/14/18 10:58 Dose: 5 mg Baclofen (Lioresal -) 10 mg PO TID [facility] Last Admin: 08/14/18 05:53 Dose: 10 mg Clotrimazole (Lotrimin 1% Cream -) 1 applic TP BID [facility] Last Admin: 08/14/18 10:58 Dose: 1 applic Diltiazem HCl (Cardizem Cd -) 240 mg PO BID [facility] Last Admin: 08/14/18 10:57 Dose: 240 mg Doxepin HCl (Sinequan -) 25 mg PO DAILY [facility] Last Admin: 08/14/18 10:58 Dose: 25 mg Gabapentin (Neurontin -) 400 mg PO TID [facility] Last Admin: 08/14/18 05:51 Dose: 400 mg Hydromorphone HCl (Dilaudid -) 4 mg PO Q4HPO [facility] Last Admin: 08/14/18 10:57 Dose: 4 mg Insulin Aspart (Novolog Vial Sliding Scale -) 1 vial SQ ACHS [facility]; Protocol Last Admin: 08/14/18 06:34 Dose: 7 units Insulin Detemir (Levemir Vial) 15 units SQ AM [facility] Last Admin: 08/14/18 06:33 Dose: 15 units Levothyroxine Sodium (Synthroid -) 50 mcg PO DAILY@0700 [facility] Last Admin: 08/14/18 06:33 Dose: 50 mcg Metoclopramide HCl (Reglan Injection -) 10 mg IVPUSH Q8H PRN PRN Reason: NAUSEA AND/OR VOMITING Last Admin: 08/14/18 05:47 Dose: 10 mg Miconazole Nitrate (Monistat-7 Vaginal Suppository -) 100 mg PV HS [facility] Last Admin: 08/13/18 22:00 Dose: 100 mg Montelukast Sodium (Singulair -) 10 mg PO [facility] Last Admin: 08/13/18 21:57 Dose: 10 mg Non-Formulary Medication (Mirabegron [Myrbetriq]) 50 mg PO DAILY [facility] Non-Formulary Medication (Vortioxetine Hydrobromide [Trintellix]) 20 mg PO DAILY [facility] Pantoprazole Sodium (Protonix Iv) 40 mg IVPB DAILY [facility] Last Admin: 08/14/18 10:57 Dose: 40 mg Prednisone (Deltasone -) 10 mg PO DAILY [facility] Last Admin: 08/14/18 10:57 Dose: 10 mg Rosuvastatin Calcium (Crestor -) 10 mg PO [facility] Last Admin: 08/13/18 21:57 Dose: 10 mg Venlafaxine HCl (Effexor Xr -) 75 mg PO DAILY [facility] Last Admin: 08/14/18 10:58 Dose: 75 mg Zolpidem Tartrate (Ambien -) 10 mg PO [facility] Last Admin: 08/13/18 21:56 Dose: 10 mg - Objective Vital Signs: Vital Signs Temperature 97.8 F 08/14/18 09:30 Pulse Rate 86 08/14/18 09:30 Respiratory Rate 12 08/14/18 09:30 Blood Pressure 122/79 08/14/18 09:30 O2 Sat by Pulse Oximetry (%) 98 08/14/18 08:31 Constitutional: Yes: Well Nourished, Calm Eyes: Yes: WNL HENT: Yes: WNL Neck: Yes: Supple (TRACH) Cardiovascular: Yes: Regular Rate and Rhythm, S1, S2 Respiratory: Yes: Wheezes (BILATERAL WHEEZES) Gastrointestinal: Yes: Normal Bowel Sounds, Soft Extremities: Yes: WNL Edema: No Labs: CBC, BMP 08/14/18 08:30 08/14/18 08:30 INR, PTT INR 1.40 (0.83-1.09) H 08/10/18 09:31 Assessment/Plan Problem List - Problems (1) Nausea and vomiting Code(s): R11.2 - NAUSEA WITH VOMITING, UNSPECIFIED Qualifiers: Vomiting type: unspecified Vomiting Intractability: unspecified Qualified Code(s): R11.2 - Nausea with vomiting, unspecified (2) Abdominal pain Code(s): R10.9 - UNSPECIFIED ABDOMINAL PAIN (3) Anemia Code(s): D64.9 - ANEMIA, UNSPECIFIED (4) Hypothyroid Code(s): E03.9 - HYPOTHYROIDISM, UNSPECIFIED Qualifiers: Hypothyroidism type: unspecified Qualified Code(s): E03.9 - Hypothyroidism , unspecified (5) Insomnia disorder Code(s): G47.00 - INSOMNIA, UNSPECIFIED (6) Anxiety Code(s): F41.9 - ANXIETY DISORDER, UNSPECIFIED (7) Asthma Code(s): J45.909 - UNSPECIFIED ASTHMA, UNCOMPLICATED (8) Bipolar 2 disorder Code(s): F31.81 - BIPOLAR II DISORDER (9) Chronic back pain Code(s): M54.9 - DORSALGIA, UNSPECIFIED; G89.29 - OTHER CHRONIC PAIN (10) Chronic pain disorder Code(s): G89.4 - CHRONIC PAIN SYNDROME (11) Chronic respiratory failure with hypoxia Code(s): J96.11 - CHRONIC RESPIRATORY FAILURE WITH HYPOXIA (12) Constipation Code(s): K59.00 - CONSTIPATION, UNSPECIFIED Qualifiers: Constipation type: unspecified constipation type Qualified Code(s): K59.00 - Constipation, unspecified (13) GERD (gastroesophageal reflux disease) Code(s): K21.9 - GASTRO-ESOPHAGEAL REFLUX DISEASE WITHOUT ESOPHAGITIS (14) Gastritis Code(s): K29.70 - GASTRITIS, UNSPECIFIED, WITHOUT BLEEDING Qualifiers: Gastritis type: unspecified gastritis Chronicity: unspecified Gastritis bleeding: without bleeding Qualified Code(s): K29.70 - Gastritis, unspecified , without bleeding (15) HTN (hypertension) Code(s): I10 - ESSENTIAL (PRIMARY) HYPERTENSION Qualifiers: (16) Hyperlipidemia Code(s): E78.5 - HYPERLIPIDEMIA, UNSPECIFIED Qualifiers: (17) Neuropathy Code(s): G62.9 - POLYNEUROPATHY, UNSPECIFIED (18) Paroxysmal atrial fibrillation Code(s): I48.0 - PAROXYSMAL ATRIAL FIBRILLATION Assessment/Plan Trach collar O2 to maintain saturation BD TX RPN Prednisone 30mg daily DR RUFFIN
--- NOTE | 2018-08-14 14:00 | PN ---
Progress Note, Physician Chief Complaint: Intractable migraine Nausea & Vomiting History of Present Illness: NAD c/o migraine headache and groin rash 2/2 to incontinence - Current Medication List Current Medications: Active Medications Acetaminophen (Tylenol -) 650 mg PO Q6H PRN PRN Reason: FEVER Last Admin: 08/14/18 05:50 Dose: 650 mg Albuterol/Ipratropium (Duoneb -) 1 amp NEB RQID [facility] Last Admin: 08/14/18 12:11 Dose: 1 amp Alprazolam (Xanax -) 0.25 mg PO TID [facility] Last Admin: 08/14/18 13:53 Dose: 0.25 mg Apixaban (Eliquis -) 5 mg PO BID [facility] Last Admin: 08/14/18 10:58 Dose: 5 mg Baclofen (Lioresal -) 10 mg PO TID [facility] Last Admin: 08/14/18 13:53 Dose: 10 mg Clotrimazole (Lotrimin 1% Cream -) 1 applic TP BID [facility] Last Admin: 08/14/18 10:58 Dose: 1 applic Diltiazem HCl (Cardizem Cd -) 240 mg PO BID [facility] Last Admin: 08/14/18 10:57 Dose: 240 mg Doxepin HCl (Sinequan -) 25 mg PO DAILY [facility] Last Admin: 08/14/18 10:58 Dose: 25 mg Gabapentin (Neurontin -) 400 mg PO TID [facility] Last Admin: 08/14/18 13:53 Dose: 400 mg Hydromorphone HCl (Dilaudid -) 4 mg PO Q4HPO [facility] Last Admin: 08/14/18 13:52 Dose: 4 mg Insulin Aspart (Novolog Vial Sliding Scale -) 1 vial SQ [facility]; Protocol Last Admin: 08/14/18 11:58 Dose: 5 units Insulin Detemir (Levemir Vial) 15 units SQ AM [facility] Last Admin: 08/14/18 06:33 Dose: 15 units Levothyroxine Sodium (Synthroid -) 50 mcg PO DAILY@0700 [facility] Last Admin: 08/14/18 06:33 Dose: 50 mcg Metoclopramide HCl (Reglan Injection -) 10 mg IVPUSH Q8H PRN PRN Reason: NAUSEA AND/OR VOMITING Last Admin: 08/14/18 05:47 Dose: 10 mg Miconazole Nitrate (Monistat-7 Vaginal Suppository -) 100 mg PV HS [facility] Last Admin: 08/13/18 22:00 Dose: 100 mg Montelukast Sodium (Singulair -) 10 mg PO [facility] Last Admin: 08/13/18 21:57 Dose: 10 mg Non-Formulary Medication (Mirabegron [Myrbetriq]) 50 mg PO DAILY [facility] Non-Formulary Medication (Vortioxetine Hydrobromide [Trintellix]) 20 mg PO DAILY [facility] Pantoprazole Sodium (Protonix Iv) 40 mg IVPB DAILY [facility] Last Admin: 08/14/18 10:57 Dose: 40 mg Prednisone (Deltasone -) 30 mg PO DAILY [facility] Rosuvastatin Calcium (Crestor -) 10 mg PO [facility] Last Admin: 08/13/18 21:57 Dose: 10 mg Venlafaxine HCl (Effexor Xr -) 75 mg PO DAILY [facility] Last Admin: 08/14/18 10:58 Dose: 75 mg Zolpidem Tartrate (Ambien -) 10 mg PO [facility] Last Admin: 08/13/18 21:56 Dose: 10 mg - Objective Vital Signs: Vital Signs Temperature 97.8 F 08/14/18 09:30 Pulse Rate 88 08/14/18 10:00 Respiratory Rate 18 08/14/18 10:00 Blood Pressure 120/60 08/14/18 10:00 O2 Sat by Pulse Oximetry (%) 98 08/14/18 09:00 Constitutional: Yes: Well Nourished, No Distress, Calm Cardiovascular: Yes: Regular Rate and Rhythm Respiratory: Yes: Regular, Rhonchi, Other (Trach collar) Gastrointestinal: Yes: Normal Bowel Sounds, Soft, Abdomen, Obese Genitourinary: Yes: Incontinence Musculoskeletal: Yes: WNL Extremities: Yes: WNL Edema: No Peripheral Pulses WNL: Yes Integumentary: Yes: Rash (Groin) Neurological: Yes: Alert, Oriented Psychiatric: Yes: Alert, Oriented Labs: CBC, BMP 08/14/18 08:30 08/14/18 08:30 INR, PTT INR 1.40 (0.83-1.09) H 08/10/18 09:31 Problem List - Problems (1) Migraine headache Assessment/Plan: -Used to be on topamax, was discontinue, she doesn't know why -is already on a list of high risk medications -add topamax 100 mg po daily Code(s): G43.909 - MIGRAINE, UNSP, NOT INTRACTABLE, WITHOUT STATUS MIGRAINOSUS (2) Princess infection of genital region Assessment/Plan: -no relief with topical ointments -Fluconazole 100 mg po daily x 3 days Code(s): B37.49 - OTHER UROGENITAL CANDIDIASIS (3) Nausea and vomiting Assessment/Plan: -Zofran -nausea only with migraine headache Code(s): R11.2 - NAUSEA WITH VOMITING, UNSPECIFIED Qualifiers: Vomiting type: unspecified Vomiting Intractability: unspecified Qualified Code(s): R11.2 - Nausea with vomiting, unspecified (4) Acute and chronic respiratory failure with hypoxia Assessment/Plan: -trach collar -seen by pulmonary -bronchodilators -add mucomyst -prednisone increased to 30 mg po daily by pulmonary Code(s): J96.21 - ACUTE AND CHRONIC RESPIRATORY FAILURE WITH HYPOXIA (5) Depression with anxiety Assessment/Plan: -seen by psychiatry Code(s): F41.8 - OTHER SPECIFIED ANXIETY DISORDERS (6) Diabetes mellitus, insulin dependent (IDDM), uncontrolled Assessment/Plan: -dietary non compliance -BGM AC HS -diabetic diet -Insulin levemir and novolog sliding scale -last A1c at 11.2 Code(s): E10.65 - TYPE 1 DIABETES MELLITUS WITH HYPERGLYCEMIA (7) Anemia Assessment/Plan: -H/H stable -anemia of chronic disease Code(s): D64.9 - ANEMIA, UNSPECIFIED Assessment/Plan see problem list d/c home in AM if stable
[2018-08-14] MEDS: TOPIRAMATE 100 MG TABLET PO SCH (16:36)
[2018-08-14] MEDS: FLUCONAZOLE 100 MG TABLET (UD) PO SCH (16:36)
[2018-08-14] MEDS: ZOLPIDEM TARTRATE 5 MG TABLET PO SCH (21:55)
[2018-08-14] MEDS: MONTELUKAST NA 10 MG TABLET PO SCH (21:56)
[2018-08-14] MEDS: MICONAZOLE NITRATE 100 MG SUPP SUPP.VAG PV SCH (21:56)
[2018-08-14] MEDS: ROSUVASTATIN CA 10 MG TABLET (FP) PO SCH (21:56)
[2018-08-15] MEDS: ALPRAZolam 0.25 MG TABLET PO SCH ×3 (06:17→22:16)
[2018-08-15] MEDS: LEVOTHYROXINE NA 50 MCG TABLET (FP) PO SCH (06:17)
[2018-08-15] MEDS: BACLOFEN 10 MG TABLET (FP) PO SCH ×3 (06:17→22:16)
[2018-08-15] MEDS: GABAPENTIN 400 MG CAPSULE (FP) PO SCH ×3 (06:17→22:17)
[2018-08-15] MEDS: INSULIN (LEVEMIR) 100 UNITS/ML UNITS SQ SCH (06:20)
[2018-08-15] MEDS: INSULIN SLIDING SCALE (NOVOLOG) 1 VIAL SQ SCH ×4 (06:20→22:53)
[2018-08-15] MEDS ORDERED: INSULIN (LEVEMIR) 100 UNITS/ML UNITS SQ ONE (06:30)
[2018-08-15] MEDS ORDERED: INSULIN (NOVOLOG) ASPART 100 UNITS/ML 10ML VIAL ONE ×3 (06:35→21:03)
[2018-08-15] MEDS: ALBUTEROL SO4 2.5/IPRATROPIUM 0.5 INH SOL 3 ML VIAL.NEB. NEB SCH ×4 (08:37→20:20)
--- NOTE | 2018-08-15 09:57 | DS ---
Physical Examination Vital Signs: Vital Signs Temperature 98.2 F 08/15/18 08:06 Pulse Rate 94 H 08/15/18 08:06 Respiratory Rate 14 08/15/18 08:06 Blood Pressure 130/63 08/15/18 08:06 O2 Sat by Pulse Oximetry (%) 99 08/14/18 20:29 Findings/Remarks: 52-year-old female with multiple medical problems including diabetes, history of admissions for nausea/vomiting suspicious for gastroparesis (last similar presentation was in June and seen again in the emergency Department 3 days ago ) presents now with persistent nausea/vomiting not improving at home with Zofran. Patient was seen here, was noted to be dehydrated with elevated lactate , at that time requested discharge presents now secondary to vomiting undigested food last night and again this morning. Persistent upper abdominal discomfort but no fevers or chills, positive flatus but no bowel movement for 2- 3 days. Constitutional: Yes: Well Nourished, No Distress, Calm Cardiovascular: Yes: Regular Rate and Rhythm Respiratory: Yes: Regular, Rhonchi, Other (Trach collar) Musculoskeletal: Yes: Muscle Weakness Neurological: Yes: Alert, Oriented Psychiatric: Yes: Alert, Oriented Labs: CBC, BMP 08/14/18 08:30 08/14/18 08:30 Discharge Summary Reason For Visit: NAUSEA AND VOMITING, ABDOMINAL PAIN Current Active Problems Princess infection of genital region (Acute) Constipation (Acute) Diabetes mellitus with hyperosmolarity (Acute) Migraine headache (Acute) Nausea and vomiting (Acute) Rash (Acute) Condition: Stable - Instructions Referrals: Manolo Jaquez [Primary Care Provider] - Disposition: VNS/HOME HEALTH CARE - Home Medications Comprehensive Discharge Medication List: Ambulatory Orders Albuterol Sulfate Inhaler - [Ventolin HFA Inhaler -] 2 puff IH Q4H PRN #0 inhaler 11/29/16 Acetaminophen [Tylenol .Regular Strength -] 650 mg PO Q6H PRN #0 tablet Apixaban [Eliquis -] 5 mg PO BID tablet 04/29/17 Baclofen 30 mg PO TID 07/09/18 Diltiazem HCl [Diltiazem 24Hr Cd] 240 mg PO BID 07/09/18 Gabapentin [Neurontin] 400 mg PO TID 07/09/18 HYDROmorphone [Dilaudid -] 4 mg PO Q4H PRN 07/09/18 Levocetirizine Dihydrochloride 5 mg PO HS 07/09/18 Levothyroxine [Synthroid -] 50 mcg PO DAILY 07/09/18 Multivitamin [One Daily] 1 each PO DAILY 07/09/18 Rosuvastatin Calcium [Crestor] 10 mg PO DAILY 07/09/18 Venlafaxine HCl ER [Effexor Xr -] 75 mg PO DAILY 07/09/18 Vortioxetine Hydrobromide [Trintellix] 20 mg PO DAILY 07/09/18 predniSONE [Deltasone -] 10 mg PO DAILY 07/09/18 Ondansetron [Zofran *Odt*] 8 mg PO BID PRN #90 tab.rapdis 07/13/18 Alprazolam [Xanax] 0.25 mg PO TID MDD 2 08/07/18 Desoximetasone [Topicort] 1 ml TP BID 08/07/18 Doxepin HCl [Sinequan -] 25 mg PO DAILY 08/07/18 Famotidine 40 mg PO BID 08/07/18 Hydromorphone HCl 4 mg PO Q4H 08/07/18 Mirabegron [Myrbetriq] 50 mg PO DAILY 08/07/18 Montelukast Na [Singulair -] 10 mg PO HS 08/07/18 Ondansetron HCl [Zofran] 4 mg PO DAILY #30 tablet 08/07/18 Zolpidem Tartrate 10 mg PO HS 08/07/18 Acyclovir [Zovirax -] 800 mg PO 5XD #50 tablet 08/08/18
[2018-08-15] MEDS ORDERED: PT OWN MED DRAWER 7, Y5N ONE (10:46)
[2018-08-15] MEDS: DOXEPIN HCL 25 MG CAPSULE PO SCH (10:53)
[2018-08-15] MEDS: PANTOPRAZOLE 40 MG TABLET (FP) PO SCH (10:53)
[2018-08-15] MEDS: APIXABAN 5 MG TABLET PO SCH ×2 (10:53→22:15)
[2018-08-15] MEDS: FLUCONAZOLE 100 MG TABLET (UD) PO SCH (10:53)
[2018-08-15] MEDS: TOPIRAMATE 100 MG TABLET PO SCH (10:53)
[2018-08-15] MEDS: VENLAFAXINE HCL 75 MG E.R. CAPSULES (FP) PO SCH (10:53)
[2018-08-15] MEDS: CLOTRIMAZOLE 1% CREAM 15 GM TUBE TP SCH ×2 (10:54→22:19)
--- NOTE | 2018-08-15 13:06 | PN ---
Progress Note, Physician History of Present Illness: pulmonary alert,c/o congestion,chest tightness - Current Medication List Current Medications: Active Medications Acetaminophen (Tylenol -) 650 mg PO Q6H PRN PRN Reason: FEVER Last Admin: 08/14/18 05:50 Dose: 650 mg Albuterol/Ipratropium (Duoneb -) 1 amp NEB RQID [facility] Last Admin: 08/15/18 11:52 Dose: 1 amp Alprazolam (Xanax -) 0.25 mg PO TID [facility] Last Admin: 08/15/18 06:17 Dose: 0.25 mg Apixaban (Eliquis -) 5 mg PO BID [facility] Last Admin: 08/15/18 10:53 Dose: 5 mg Baclofen (Lioresal -) 10 mg PO TID [facility] Last Admin: 08/15/18 06:17 Dose: 10 mg Clotrimazole (Lotrimin 1% Cream -) 1 applic TP BID [facility] Last Admin: 08/15/18 10:54 Dose: 1 applic Diltiazem HCl (Cardizem Cd -) 240 mg PO BID [facility] Last Admin: 08/15/18 10:52 Dose: 240 mg Doxepin HCl (Sinequan -) 25 mg PO DAILY [facility] Last Admin: 08/15/18 10:53 Dose: 25 mg Fluconazole (Diflucan -) 100 mg PO DAILY [facility] Last Admin: 08/15/18 10:53 Dose: 100 mg Gabapentin (Neurontin -) 400 mg PO TID [facility] Last Admin: 08/15/18 06:17 Dose: 400 mg Hydromorphone HCl (Dilaudid -) 4 mg PO Q4HPO [facility] Last Admin: 08/15/18 10:51 Dose: 4 mg Insulin Aspart (Novolog Vial Sliding Scale -) 1 vial SQ ACHS [facility]; Protocol Last Admin: 08/15/18 11:11 Dose: 5 units Insulin Detemir (Levemir Vial) 15 units SQ AM [facility] Last Admin: 08/15/18 06:20 Dose: 15 units Levothyroxine Sodium (Synthroid -) 50 mcg PO DAILY@0700 [facility] Last Admin: 08/15/18 06:17 Dose: 50 mcg Metoclopramide HCl (Reglan Injection -) 10 mg IVPUSH Q8H PRN PRN Reason: NAUSEA AND/OR VOMITING Last Admin: 08/14/18 05:47 Dose: 10 mg Miconazole Nitrate (Monistat-7 Vaginal Suppository -) 100 mg PV [facility] Last Admin: 08/14/18 21:56 Dose: 100 mg Montelukast Sodium (Singulair -) 10 mg PO [facility] Last Admin: 08/14/18 21:56 Dose: 10 mg Non-Formulary Medication (Mirabegron [Myrbetriq]) 50 mg PO DAILY [facility] Non-Formulary Medication (Vortioxetine Hydrobromide [Trintellix]) 20 mg PO DAILY [facility] Pantoprazole Sodium (Protonix -) 40 mg PO DAILY [facility] Last Admin: 08/15/18 10:53 Dose: 40 mg Prednisone (Deltasone -) 30 mg PO DAILY [facility] Last Admin: 08/15/18 10:52 Dose: 30 mg Rosuvastatin Calcium (Crestor -) 10 mg PO [facility] Last Admin: 08/14/18 21:56 Dose: 10 mg Topiramate (Topamax -) 100 mg PO DAILY [facility] Last Admin: 08/15/18 10:53 Dose: 100 mg Venlafaxine HCl (Effexor Xr -) 75 mg PO DAILY [facility] Last Admin: 08/15/18 10:53 Dose: 75 mg Zolpidem Tartrate (Ambien -) 10 mg PO [facility] Last Admin: 08/14/18 21:55 Dose: 10 mg - Objective Vital Signs: Vital Signs Temperature 98.2 F 08/15/18 08:06 Pulse Rate 89 08/15/18 11:52 Respiratory Rate 14 08/15/18 08:06 Blood Pressure 130/63 08/15/18 08:06 O2 Sat by Pulse Oximetry (%) 98 08/15/18 11:52 Constitutional: Yes: Well Nourished, Calm Eyes: Yes: WNL HENT: Yes: WNL Neck: Yes: WNL Cardiovascular: Yes: Regular Rate and Rhythm, S1, S2 Respiratory: Yes: Wheezes (scattered wheezes) Gastrointestinal: Yes: Normal Bowel Sounds, Soft Extremities: Yes: WNL Edema: No Labs: Assessment/Plan Problem List - Problems (1) Nausea and vomiting Code(s): R11.2 - NAUSEA WITH VOMITING, UNSPECIFIED Qualifiers: Vomiting type: unspecified Vomiting Intractability: unspecified Qualified Code(s): R11.2 - Nausea with vomiting, unspecified (2) Abdominal pain Code(s): R10.9 - UNSPECIFIED ABDOMINAL PAIN (3) Anemia Code(s): D64.9 - ANEMIA, UNSPECIFIED (4) Hypothyroid Code(s): E03.9 - HYPOTHYROIDISM, UNSPECIFIED Qualifiers: Hypothyroidism type: unspecified Qualified Code(s): E03.9 - Hypothyroidism , unspecified (5) Insomnia disorder Code(s): G47.00 - INSOMNIA, UNSPECIFIED (6) Anxiety Code(s): F41.9 - ANXIETY DISORDER, UNSPECIFIED (7) Asthma Code(s): J45.909 - UNSPECIFIED ASTHMA, UNCOMPLICATED (8) Bipolar 2 disorder Code(s): F31.81 - BIPOLAR II DISORDER (9) Chronic back pain Code(s): M54.9 - DORSALGIA, UNSPECIFIED; G89.29 - OTHER CHRONIC PAIN (10) Chronic pain disorder Code(s): G89.4 - CHRONIC PAIN SYNDROME (11) Chronic respiratory failure with hypoxia Code(s): J96.11 - CHRONIC RESPIRATORY FAILURE WITH HYPOXIA (12) Constipation Code(s): K59.00 - CONSTIPATION, UNSPECIFIED Qualifiers: Constipation type: unspecified constipation type Qualified Code(s): K59.00 - Constipation, unspecified (13) GERD (gastroesophageal reflux disease) Code(s): K21.9 - GASTRO-ESOPHAGEAL REFLUX DISEASE WITHOUT ESOPHAGITIS (14) Gastritis Code(s): K29.70 - GASTRITIS, UNSPECIFIED, WITHOUT BLEEDING Qualifiers: Gastritis type: unspecified gastritis Chronicity: unspecified Gastritis bleeding: without bleeding Qualified Code(s): K29.70 - Gastritis, unspecified , without bleeding (15) HTN (hypertension) Code(s): I10 - ESSENTIAL (PRIMARY) HYPERTENSION Qualifiers: (16) Hyperlipidemia Code(s): E78.5 - HYPERLIPIDEMIA, UNSPECIFIED Qualifiers: (17) Neuropathy Code(s): G62.9 - POLYNEUROPATHY, UNSPECIFIED (18) Paroxysmal atrial fibrillation Code(s): I48.0 - PAROXYSMAL ATRIAL FIBRILLATION Assessment/Plan Trach collar O2 to maintain saturation BD TX RPN Medrol x [address] RUFFIN
[2018-08-15] MEDS: methylPREDNISolone NA SUCC 40 MG/1 ML VIAL IVPUSH SCH ×2 (13:24→17:17)
[2018-08-15] MEDS ORDERED: Insulin (LOG) Aspart 100 UNITS/ML VIAL SQ ONE (22:09)
[2018-08-15] MEDS: ZOLPIDEM TARTRATE 5 MG TABLET PO SCH (22:15)
[2018-08-15] MEDS: ROSUVASTATIN CA 10 MG TABLET (FP) PO SCH (22:16)
[2018-08-15] MEDS: MONTELUKAST NA 10 MG TABLET PO SCH (22:16)
[2018-08-15] MEDS: MICONAZOLE NITRATE 100 MG SUPP SUPP.VAG PV SCH (22:19)
[2018-08-16] MEDS: methylPREDNISolone NA SUCC 40 MG/1 ML VIAL IVPUSH SCH ×2 (01:29→09:42)
[2018-08-16] MEDS ORDERED: INSULIN (NOVOLOG) ASPART 100 UNITS/ML 10ML VIAL SQ ONE ×2 (02:00→15:00)
[2018-08-16] MEDS: INSULIN SLIDING SCALE (NOVOLOG) 1 VIAL SQ SCH ×4 (02:24→13:30)
[2018-08-16] MEDS: GABAPENTIN 400 MG CAPSULE (FP) PO SCH ×2 (05:39→13:46)
[2018-08-16] MEDS: BACLOFEN 10 MG TABLET (FP) PO SCH ×2 (05:39→13:46)
[2018-08-16] MEDS: ALPRAZolam 0.25 MG TABLET PO SCH ×2 (05:39→13:46)
[2018-08-16] MEDS: LEVOTHYROXINE NA 50 MCG TABLET (FP) PO SCH (06:02)
[2018-08-16] MEDS: INSULIN (LEVEMIR) 100 UNITS/ML UNITS SQ SCH (06:27)
[2018-08-16] MEDS: ALBUTEROL SO4 2.5/IPRATROPIUM 0.5 INH SOL 3 ML VIAL.NEB. NEB SCH ×2 (07:45→11:05)
[2018-08-16] MEDS: ACETAMINOPHEN 325 MG TABLET (FP) PO PRN (08:29)
[2018-08-16] MEDS ORDERED: PT OWN MED DRAWER 7, Y5N ONE (09:38)
[2018-08-16] MEDS: FLUCONAZOLE 100 MG TABLET (UD) PO SCH (09:41)
[2018-08-16] MEDS: PANTOPRAZOLE 40 MG TABLET (FP) PO SCH (09:41)
[2018-08-16] MEDS: VENLAFAXINE HCL 75 MG E.R. CAPSULES (FP) PO SCH (09:41)
[2018-08-16] MEDS: APIXABAN 5 MG TABLET PO SCH (09:41)
[2018-08-16] MEDS: DOXEPIN HCL 25 MG CAPSULE PO SCH (09:41)
[2018-08-16] MEDS: TOPIRAMATE 100 MG TABLET PO SCH (09:42)
[2018-08-16] MEDS: CLOTRIMAZOLE 1% CREAM 15 GM TUBE TP SCH (09:42)
[2018-08-16] MEDS ORDERED: INSULIN (NOVOLOG) ASPART 100 UNITS/ML 10ML VIAL ONE (11:51)
--- NOTE | 2018-08-16 11:57 | PN ---
Progress Note (short form) - Note Progress Note: PULMONARY States breathing is at baseline. +nonproductive cough and wheezing. Vital Signs Period Temp Pulse Resp BP Sys/Dan Pulse Ox Last 24 Hr 98.4 F-98.7 F 96-112 16-18 114-156/78-84 98-98 Gen: NAD at rest Heart: RRR Lung: scattered rhonchi Abd: soft, nontender Ext: no edema CBC, BMP 08/14/18 08:30 08/15/18 22:32 Active Medications Acetaminophen (Tylenol -) 650 mg PO Q6H PRN PRN Reason: FEVER Last Admin: 08/16/18 08:29 Dose: 650 mg Albuterol/Ipratropium (Duoneb -) 1 amp NEB RQID [facility] Last Admin: 08/16/18 11:05 Dose: 1 amp Alprazolam (Xanax -) 0.25 mg PO TID [facility] Last Admin: 08/16/18 05:39 Dose: 0.25 mg Apixaban (Eliquis -) 5 mg PO BID [facility] Last Admin: 08/16/18 09:41 Dose: 5 mg Baclofen (Lioresal -) 10 mg PO TID [facility] Last Admin: 08/16/18 05:39 Dose: 10 mg Clotrimazole (Lotrimin 1% Cream -) 1 applic TP BID [facility] Last Admin: 08/16/18 09:42 Dose: 1 applic Diltiazem HCl (Cardizem Cd -) 240 mg PO BID [facility] Last Admin: 08/16/18 09:41 Dose: 240 mg Doxepin HCl (Sinequan -) 25 mg PO DAILY [facility] Last Admin: 08/16/18 09:41 Dose: 25 mg Fluconazole (Diflucan -) 100 mg PO DAILY [facility] Last Admin: 08/16/18 09:41 Dose: 100 mg Gabapentin (Neurontin -) 400 mg PO TID [facility] Last Admin: 08/16/18 05:39 Dose: 400 mg Hydromorphone HCl (Dilaudid -) 4 mg PO Q4HPO [facility] Last Admin: 08/16/18 09:41 Dose: 4 mg Insulin Aspart (Novolog Vial Sliding Scale -) 1 vial SQ ACHS [facility]; Protocol Last Admin: 08/16/18 11:52 Dose: 10 units Insulin Detemir (Levemir Vial) 15 units SQ AM [facility] Last Admin: 08/16/18 06:27 Dose: 15 units Levothyroxine Sodium (Synthroid -) 50 mcg PO DAILY@0700 [facility] Last Admin: 08/16/18 06:02 Dose: 50 mcg Methylprednisolone Sodium Succinate (Solu-Medrol -) 40 mg IVPUSH Q8H-IV [facility] Last Admin: 08/16/18 09:42 Dose: 40 mg Metoclopramide HCl (Reglan Injection -) 10 mg IVPUSH Q8H PRN PRN Reason: NAUSEA AND/OR VOMITING Last Admin: 08/14/18 05:47 Dose: 10 mg Miconazole Nitrate (Monistat-7 Vaginal Suppository -) 100 mg PV HS [facility] Last Admin: 08/15/18 22:19 Dose: 100 mg Montelukast Sodium (Singulair -) 10 mg PO HS [facility] Last Admin: 08/15/18 22:16 Dose: 10 mg Non-Formulary Medication (Mirabegron [Myrbetriq]) 50 mg PO DAILY [facility] Non-Formulary Medication (Vortioxetine Hydrobromide [Trintellix]) 20 mg PO DAILY [facility] Pantoprazole Sodium (Protonix -) 40 mg PO DAILY [facility] Last Admin: 08/16/18 09:41 Dose: 40 mg Rosuvastatin Calcium (Crestor -) 10 mg PO HS [facility] Last Admin: 08/15/18 22:16 Dose: 10 mg Topiramate (Topamax -) 100 mg PO DAILY [facility] Last Admin: 08/16/18 09:42 Dose: 100 mg Venlafaxine HCl (Effexor Xr -) 75 mg PO DAILY [facility] Last Admin: 08/16/18 09:41 Dose: 75 mg Zolpidem Tartrate (Ambien -) 10 mg PO HS [facility] Last Admin: 08/15/18 22:15 Dose: 10 mg A/P Diabetic Gastroparesis Chronic Hypoxic Respiratory Failure Asthma COPD Paroxysmal Atrial Fibrillation DM - inhaled bronchodilators - can change steroids to PO prednisone 40mg daily - O2 to keep SpO2 >90% - glucose control - DVT prophylaxis
[2018-08-16 12:01] VITALS: BP 134/80; PULSE 94; TEMP 98.4
== END 2018-08-16 15:38 | disposition home health service (06) | DRG 74 ==
LOC: JER 07:21 → JERBED 14:10 → J6S 17:45
PROVIDERS: ADMIT Family Medicine; ATTEND Family Medicine
DX: E11.43 Type 2 diabetes mellitus with diabetic autonomic (poly)neuropathy (principal); J96.11 Chronic respiratory failure with hypoxia; E87.2 Acidosis; Z99.11 Dependence on respirator [ventilator] status; F31.81 Bipolar II disorder; E11.65 Type 2 diabetes mellitus with hyperglycemia; B37.3 Candidiasis of vulva and vagina; Z93.0 Tracheostomy status; I48.0 Paroxysmal atrial fibrillation; J44.9 Chronic obstructive pulmonary disease, unspecified; I10 Essential (primary) hypertension; E03.9 Hypothyroidism, unspecified; K29.70 Gastritis, unspecified, without bleeding; D72.829 Elevated white blood cell count, unspecified; E87.5 Hyperkalemia; K31.84 Gastroparesis; Z99.81 Dependence on supplemental oxygen; Z79.4 Long term (current) use of insulin; Z85.42 Personal history of malignant neoplasm of other parts of uterus; M54.5 Low back pain; Z90.49 Acquired absence of other specified parts of digestive tract; Z87.891 Personal history of nicotine dependence; E86.0 Dehydration; Z90.710 Acquired absence of both cervix and uterus; Z68.34 Body mass index [BMI] 34.0-34.9, adult; E66.9 Obesity, unspecified; K59.00 Constipation, unspecified; R21 Rash and other nonspecific skin eruption; G43.909 Migraine, unspecified, not intractable, without status migrainosus; R32 Unspecified urinary incontinence; F41.8 Other specified anxiety disorders
CPT/HCPCS: 36415; 71045-TC-FY; 74019-TC-FY; 74177-TC; 80053; 81003; 81015; 82150; 82550; 82803; 82947; 82962; 83605; 83690; 83735; 84443; 84484; 85025; 85610; 85730; 86850; 86900; 86901; 87040; 87086; 93005; 93010; 94640; 96361; 96374; 96376; 99281-25; 99285-25; J0131; J0475; J7620

== ENCOUNTER 2018-08-27 02:01 | Emergency (ER) | payer OTHER ==
[2018-08-27 02:41] VITALS: BP 123/85; PULSE 103; TEMP 98.9; BMI 32.3
--- NOTE | 2018-08-27 02:46 | PDOC ---
History of Present Illness - General Chief Complaint: Pain Stated Complaint: LEG PAIN Time Seen by Provider: 08/27/18 02:16 History Source: Patient, Old Records Exam Limitations: No Limitations - History of Present Illness Initial Comments: 08/27/18 02:45 HISTORY OF PRESENT ILLNESS: This 52-year-old woman with multiple medical problems including NIDDM, COPD on trach collar, A. fib on [place], CVA 2, asthma, anxiety, depression, chronic back pain, migraines, uterine CA status post hysterectomy, osteomyelitis of T6, T7 with subsequent removal and small bowel resection who presents to the emergency Department with multiple complaints including left lateral knee pain while walking with physical therapy on 08/26. Patient states all walking with physical therapy she began to experience pain and denies any trauma. She denies twisting her knee or any awkward steps. The patient does report chronic pain consistent with diabetic neuropathy in the soles of bilateral feet. Took dilaudid last at 1300hrs 08/26. No recent travel or sick contacts. PAST MEDICAL HISTORY: see HPI SURGICAL HISTORY: see HPI ALLERGIES: oxycodone, asa, fentanyl REVIEW OF SYSTEMS General/Constitutional: Denies fever or chills. Denies weakness, weight change. HEENT: Denies ear pain or discharge. Denies sore throat. Cardiovascular: Denies chest pain or shortness of breath. Respiratory: Denies cough, wheezing, or hemoptysis. Gastrointestinal: Denies nausea, vomiting, diarrhea or constipation. Denies rectal bleeding. Genitourinary: Denies dysuria, frequency, or change in urination. Musculoskeletal: Left knee pain. Skin and breasts: reports easy bruising. Neurologic: Denies headache, vertigo or loss of consciousness. Chronic tingling to b/l feet. Psychiatric: Denies depression or anxiety. Endocrine: Denies increased thirst. Denies abnormal weight change. Hematologic/Lymphatic: Denies anemia, easy bleeding, or history of blood clots. Allergic/Immunologic: Denies hives or skin allergy. Denies latex allergy. PHYSICAL EXAM General Appearance: Well-appearing, appropriately dressed. No apparent distress , no intoxication. HEENT: EOMI, PERRLA, normal ENT inspection, normal voice, TMs normal, pharynx normal. No conjunctival pallor. No photophobia, scleral icterus. Neck: Tracheostomy patent. Trachea midline. No tenderness, rigidity, carotid bruit, stridor, lymphadenopathy, or thyromegaly. Respiratory/Chest: Lungs CTAB. No shortness of breath, chest tenderness, respiratory distress, accessory muscle use. No crackles, rales, rhonchi, stridor , wheezing, dullness Cardiovascular: RRR. S1, S2. No JVD, murmur, bradycardia, tachycardia. Vascular Pulses: Dorsalis-Pedis (R): 2+, Dorsalis-Pedis (L): 2+ Musculoskeletal/Extremities: Normal inspection. FROM of all extremities, normal capillary refill. Pelvis Stable. No CVA tenderness. Tenderness to lateral left knee. No erythema present. No popliteal tenderness. No calf tenderness, swelling or erythema. Integumentary: Midline abdominal scar present from ADE and bowel resection. 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 Fully oriented, alert. Appropriate mood/affect. Motor strength 5/5. No appreciable EOM palsy or facial droop. Past History - Past Medical History Allergies/Adverse Reactions: Allergies Allergy/AdvReac Type Severity Reaction Status Date / Time oxycodone [Oxycodone] Allergy Severe Nausea Verified 08/27/18 02:33 oxycodone HCl [From Percocet] Allergy Severe Nausea Verified 08/27/18 02:33 aspirin Allergy Mild Verified 08/27/18 02:33 blueberry [Blueberry] Allergy Mild Swelling Verified 08/27/18 02:33 fentanyl Allergy Verified 08/27/18 02:33 Home Medications: Ambulatory Orders Albuterol Sulfate Inhaler - [Ventolin HFA Inhaler -] 2 puff IH Q4H PRN #0 inhaler 11/29/16 Acetaminophen [Tylenol .Regular Strength -] 650 mg PO Q6H PRN #0 tablet Apixaban [Eliquis -] 5 mg PO BID tablet 04/29/17 Baclofen 30 mg PO TID 07/09/18 Diltiazem HCl [Diltiazem 24Hr Cd] 240 mg PO BID 07/09/18 Gabapentin [Neurontin] 400 mg PO TID 07/09/18 HYDROmorphone [Dilaudid -] 4 mg PO Q4H PRN 07/09/18 Levocetirizine Dihydrochloride 5 mg PO HS 07/09/18 Levothyroxine [Synthroid -] 50 mcg PO DAILY 07/09/18 Multivitamin [One Daily] 1 each PO DAILY 07/09/18 Rosuvastatin Calcium [Crestor] 10 mg PO DAILY 07/09/18 Venlafaxine HCl ER [Effexor Xr -] 75 mg PO DAILY 07/09/18 Doxepin HCl [Sinequan -] 25 mg PO DAILY 08/07/18 Famotidine 40 mg PO BID 08/07/18 Hydromorphone HCl 4 mg PO Q4H 08/07/18 Mirabegron [Myrbetriq] 50 mg PO DAILY 08/07/18 Montelukast Na [Singulair -] 10 mg PO HS 08/07/18 Alprazolam [Xanax] 0.25 mg PO TID #15 tablet MDD 3 08/15/18 Clotrimazole [Lotrimin -] 1 applic TP BID #2 tube 08/15/18 Doxepin HCl [Sinequan -] 25 mg PO DAILY #30 capsule 08/15/18 Fluconazole [Diflucan -] 100 mg PO DAILY #3 tablet 08/15/18 Linaclotide [Linzess] 145 mcg PO DAILY #30 cap 08/15/18 Ondansetron [Zofran -] 4 mg PO TID #21 tablet 08/15/18 Pantoprazole Sodium [Protonix -] 40 mg PO DAILY #30 tablet.ec 08/15/18 Prednisone 10 mg PO ASDIR #65 tablet 08/15/18 Topiramate [Topamax -] 100 mg PO DAILY #30 tablet 08/15/18 Vortioxetine Hydrobromide [Trintellix] 20 mg PO DAILY #30 tablet 08/15/18 Zolpidem Tartrate 10 mg PO HS #7 tablet MDD 1 08/15/18 Anemia: Yes Asthma: Yes (COPD, trach #8) Cancer: Yes (UTERINE) Cardiac Disorders: Yes (A-fib) CVA: No COPD: Yes CHF: No Dementia: No Diabetes: Yes GI Disorders: Yes (colitis, SB resection, GERD) Disorders: Yes (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) HTN: Yes Hypercholesterolemia: Yes Liver Disease: No Psychiatric Problems: Yes (ANXIETY) Seizures: Yes (5 yrs ago had a seizure ( zofran and reglan given together as per patient) Thyroid Disease: No - Surgical History Abdominal Surgery: Yes (BOWEL RESECTION) Appendectomy: Yes (removed 1998) Cardiac Surgery: No Cholecystectomy: No Lung Surgery: No Neurologic Surgery: No Orthopedic Surgery: Yes (Back Sx T7,6) - Immunization History Td Vaccination: Yes TDAP Vaccination: Yes Immunization Up to Date: Yes - Suicide/Smoking/Psychosocial Hx Smoking Status: No Smoking History: Unknown if ever smoked Have you smoked in the past 12 months: No Number of Cigarettes Smoked Daily: 3 If you are a former smoker, when did you quit?: 2014 Information on smoking cessation initiated: No 'Breaking Loose' booklet given: 03/12/15 Hx Alcohol Use: No Drug/Substance Use Hx: No Substance Use Type: None Hx Substance Use Treatment: No *Physical Exam - Vital Signs Last Vital Signs Temp Pulse Resp BP Pulse Ox 98.9 F 103 H 20 123/85 99 08/27/18 02:34 08/27/18 02:34 08/27/18 02:34 08/27/18 02:34 08/27/18 02:34 Medical Decision Making - Medical Decision Making 08/27/18 03:10 A/P: 52-year-old woman with multiple medical problems here today for evaluation of atraumatic left knee pain Tenderness to left lateral knee No tenderness to palpation of left hip, left femur, left ankle, left fibula, left tibia No erythema or swelling noted to the knee No tenderness to popliteal No calf swelling, erythema or tenderness present. No cords noted 2+ DP pulses present bilaterally X-rays Dilaudid 4 mg orally Reassess 08/27/18 03:54 X-rays as read by me: No acute fractures or dislocations noted. When compared to study performed 04/11/15 joint effusion has resolved. Patient's pain level is improved after receiving Dilaudid. Discharge home with Ortho and pain management f/u. *DC/Admit/Observation/Transfer Diagnosis at time of Disposition: Knee sprain Qualifiers: Encounter type: initial encounter Involved ligament of knee: unspecified ligament Laterality: left Qualified Code(s): S83.92XA - Sprain of unspecified site of left knee, initial encounter - Discharge Dispostion Disposition: HOME Condition at time of disposition: Stable Decision to Admit order: No - Referrals Referrals: Arnav Castorena MD [Staff Physician] - - Patient Instructions Printed Discharge Instructions: DI for Knee Sprain, How to Use an Elastic Bandage-Knee Sprain Additional Instructions: Take Tylenol or Motrin as needed for pain. Follow manufacturers instructions for appropriate dosage. Try not to walk or bear weight on your left leg as much as possible for the next 3 days. Apply ice for 20 minutes and removed for at least 20 minutes before reapplying the ice. Keep Efrem wrap on your knee as much as possible. Whenever possible keep your foot elevated to decrease swelling to your ankle. You've been given the number for an orthopedist. If symptoms do not resolve within the next 7 days call the orthopedist for further evaluation. Return to emergency department for discoloration of the foot, numbness or tingling to the foot, worsening pain, or any other concerns. Thank you very much for choosing us to provide your emergent healthcare needs. - Post Discharge Activity
[2018-08-27] MEDS ORDERED: ACETAMINOPHEN 325 MG TABLET (FP) PO ONE (03:01)
[2018-08-27] MEDS ORDERED: ACETAMINOPHEN 325 MG TABLET (FP) ONE (03:05)
[2018-08-27] MEDS ORDERED: HYDROmorphone HCL 2 MG TABLET PO ONE (03:06)
[2018-08-27] MEDS ORDERED: HYDROmorphone HCL 2 MG TABLET ONE (03:09)
--- NOTE | 2018-08-27 03:44 | PDOC ---
*Physical Exam - Vital Signs Last Vital Signs Temp Pulse Resp BP Pulse Ox 98.9 F 103 H 20 123/85 99 08/27/18 02:34 08/27/18 02:34 08/27/18 02:34 08/27/18 02:34 08/27/18 02:34 - Physical Exam Comments: 08/27/18 03:39 Vitals as noted Appears at baseline, trach in place No acute distress Left leg: No knee effusion or erythema or warmth, no gross deformity. There is very focal reproducible tenderness to palpation along the lateral aspect of the left knee joint, stable on stress, no focal bony tenderness. Full range of motion with flexion/extension, neurovascularly intact distally ED Treatment Course - Medications Given in the ED: ED Medications Discontinued Medications Generic Name Dose Route Start Last Admin Trade Name Freq PRN Reason Stop Dose Admin Acetaminophen 650 mg 08/27/18 03:01 08/27/18 03:12 Tylenol - PO 08/27/18 03:02 Not Given ONCE ONE Hydromorphone HCl 4 mg 08/27/18 03:06 08/27/18 03:12 Dilaudid - PO 08/27/18 03:07 4 mg ONCE ONE Administration Medical Decision Making - Medical Decision Making 08/27/18 03:40 52-year-old female well known to this institution with multiple medical problems , mostly bedridden at baseline but able to stand with assistance/walker for a few steps, presents now with atraumatic lateral left knee pain for 1 day, no motor or sensory deficit. Low suspicion for fracture or any vascular process or infectious process, likely knee strain, possible lateral ligament strain. Left knee x-ray: Extensive degenerative disease without acute fx/dislocation on my prelim review Efrem wrap support, disposition accordingly *DC/Admit/Observation/Transfer Diagnosis at time of Disposition: Knee sprain Qualifiers: Encounter type: initial encounter Involved ligament of knee: unspecified ligament Laterality: left Qualified Code(s): S83.92XA - Sprain of unspecified site of left knee, initial encounter - Referrals - Patient Instructions - Post Discharge Activity
== END 2018-08-27 05:08 | disposition home or self-care (01) ==
LOC: JER 02:01
DX: S83.8X2A Sprain of other specified parts of left knee, initial encounter (principal); X50.9XXA Other and unspecified overexertion or strenuous movements or postures, initial encounter; Y93.01 Activity, walking, marching and hiking; Y92.89 Other specified places as the place of occurrence of the external cause; Y99.8 Other external cause status; I48.91 Unspecified atrial fibrillation; Z79.01 Long term (current) use of anticoagulants; E11.9 Type 2 diabetes mellitus without complications; Z79.84 Long term (current) use of oral hypoglycemic drugs; J44.9 Chronic obstructive pulmonary disease, unspecified; J45.909 Unspecified asthma, uncomplicated; F41.9 Anxiety disorder, unspecified; F32.9 Major depressive disorder, single episode, unspecified; Z86.73 Personal history of transient ischemic attack (TIA), and cerebral infarction without residual deficits; Z86.69 Personal history of other diseases of the nervous system and sense organs; Z85.42 Personal history of malignant neoplasm of other parts of uterus; Z93.0 Tracheostomy status; Z99.89 Dependence on other enabling machines and devices; R26.89 Other abnormalities of gait and mobility
CPT/HCPCS: 73562-TC-LT-FY; 99281-25; 99282-25

== ENCOUNTER 2018-08-30 13:21 | Emergency (ER) | payer OTHER ==
[2018-08-30 13:49] VITALS: TEMP 98.4; BMI 62.3
[2018-08-30] MEDS ORDERED: ALBUTEROL SO4 2.5/IPRATROPIUM 0.5 INH SOL 3 ML VIAL.NEB. NEB ONE ×2 (14:29→14:34)
[2018-08-30] MEDS ORDERED: morphine CARPU-JECT 2 MG/1 ML DISP.SYRIN IM ONE ×2 (14:39→15:52)
[2018-08-30] MEDS ORDERED: ACETAMINOPHEN 500 MG TABLET (FP) PO ONE (14:39)
[2018-08-30] MEDS ORDERED: GABAPENTIN 400 MG CAPSULE (FP) PO ONE (14:45)
--- NOTE | 2018-08-30 14:46 | PDOC ---
History of Present Illness - General Chief Complaint: Pain, Acute Stated Complaint: KNEE PAIN Time Seen by Provider: 08/30/18 13:28 History Source: Patient Exam Limitations: No Limitations - History of Present Illness Initial Comments: 08/30/18 14:50 Pt is a 52yo f with PMH of CVA 2 years ago, DVT on Eliquis, DM, COPD, asthma, Migraine, trach tube placement presenting to ED with complaints of L knee pain. Pain started 5 days ago when patient was walking to her bed from her commode. During the walk pt felt sudden pain in the medial side of her knee. She denies hearing a pop or falling down or sustaining trauma. She states that the L knee is swollen and admits to L ankle pain which has been chronic as well as headache. She is still able to ambulate however it causes pain. She denies weakness, pain in other joints, fevers, chills, pain and swelling in the calves , chest pain, sob, n/v. Pt tried to make an appointment with Dr. Castorena however she felt the pain getting worse. She sees Dr. Sagastume for pain management. She is taking Dilaudid for pain but pt states that it has not helped. She is also taking baclofen, gabapentin 400mg, prednisone. PCP: Dr. Jaquez Pain: Tanika Pulm: DiMatejose elias PMH: see hpi Meds: see med rec Allergies: asa, ibuprofen Social: denies Past History - Past Medical History Allergies/Adverse Reactions: Allergies Allergy/AdvReac Type Severity Reaction Status Date / Time oxycodone [Oxycodone] Allergy Severe Nausea Verified 08/30/18 13:41 oxycodone HCl [From Percocet] Allergy Severe Nausea Verified 08/30/18 13:41 aspirin Allergy Mild Verified 08/30/18 13:41 blueberry [Blueberry] Allergy Mild Swelling Verified 08/30/18 13:41 fentanyl Allergy Verified 08/30/18 13:41 Home Medications: Ambulatory Orders Albuterol Sulfate Inhaler - [Ventolin HFA Inhaler -] 2 puff IH Q4H PRN #0 inhaler 11/29/16 Acetaminophen [Tylenol .Regular Strength -] 650 mg PO Q6H PRN #0 tablet Apixaban [Eliquis -] 5 mg PO BID tablet 04/29/17 Baclofen 20 mg PO TID 07/09/18 Diltiazem HCl [Diltiazem 24Hr Cd] 240 mg PO BID 07/09/18 Gabapentin [Neurontin] 400 mg PO TID 07/09/18 HYDROmorphone [Dilaudid -] 4 mg PO Q4H PRN 07/09/18 Levocetirizine Dihydrochloride 5 mg PO HS 07/09/18 Levothyroxine [Synthroid -] 50 mcg PO DAILY 07/09/18 Rosuvastatin Calcium [Crestor] 10 mg PO DAILY 07/09/18 Venlafaxine HCl ER [Effexor Xr -] 75 mg PO DAILY 07/09/18 Doxepin HCl [Sinequan -] 25 mg PO DAILY 08/07/18 Famotidine 40 mg PO BID 08/07/18 Hydromorphone HCl 4 mg PO Q4H 08/07/18 Mirabegron [Myrbetriq] 50 mg PO DAILY 08/07/18 Montelukast Na [Singulair -] 10 mg PO HS 08/07/18 Alprazolam [Xanax] 0.25 mg PO TID #15 tablet MDD 3 08/15/18 Clotrimazole [Lotrimin -] 1 applic TP BID #2 tube 08/15/18 Doxepin HCl [Sinequan -] 25 mg PO DAILY #30 capsule 08/15/18 Fluconazole [Diflucan -] 100 mg PO DAILY #3 tablet 08/15/18 Linaclotide [Linzess] 145 mcg PO DAILY #30 cap 08/15/18 Pantoprazole Sodium [Protonix -] 40 mg PO DAILY #30 tablet.ec 08/15/18 Topiramate [Topamax -] 100 mg PO DAILY #30 tablet 08/15/18 Vortioxetine Hydrobromide [Trintellix] 20 mg PO DAILY #30 tablet 08/15/18 Zolpidem Tartrate 10 mg PO HS #7 tablet MDD 1 08/15/18 Gabapentin [Neurontin -] 500 mg PO Q8H #21 capsule 08/30/18 Insulin (Novolog) [Novolog] 0 units SQ AC 08/30/18 Ondansetron [Zofran -] 8 mg PO TID 08/30/18 Prednisone 15 mg PO ASDIR 08/30/18 Anemia: Yes Asthma: Yes (COPD, trach #8) Cancer: Yes (UTERINE) Cardiac Disorders: Yes (A-fib) CVA: No COPD: Yes CHF: No Dementia: No Diabetes: Yes GI Disorders: Yes (colitis, SB resection, GERD) Disorders: Yes (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) HTN: Yes Hypercholesterolemia: Yes Liver Disease: No Psychiatric Problems: Yes (ANXIETY) Seizures: Yes (5 yrs ago had a seizure ( zofran and reglan given together as per patient) Thyroid Disease: No - Surgical History Abdominal Surgery: Yes (BOWEL RESECTION) Appendectomy: Yes (removed 1998) Cardiac Surgery: No Cholecystectomy: No Lung Surgery: No Neurologic Surgery: No Orthopedic Surgery: Yes (Back Sx T7,6) - Immunization History Td Vaccination: Yes TDAP Vaccination: Yes Immunization Up to Date: Yes - Suicide/Smoking/Psychosocial Hx Smoking Status: No Smoking History: Unknown if ever smoked Have you smoked in the past 12 months: No Number of Cigarettes Smoked Daily: 3 If you are a former smoker, when did you quit?: 2014 Information on smoking cessation initiated: No 'Breaking Loose' booklet given: 03/12/15 Hx Alcohol Use: No Drug/Substance Use Hx: No Substance Use Type: None Hx Substance Use Treatment: No Review of Systems - Review of Systems Able to Perform ROS?: Yes Constitutional: No: Chills, Fever, Weakness HEENTM: No: Recent change in vision, Ear Pain Respiratory: No: Cough, Shortness of Breath, Hemoptysis Cardiac (ROS): No: Chest Pain, Lightheadedness, Palpitations, Syncope ABD/GI: Yes: Constipated. No: Diarrhea, Nausea, Rectal Bleeding, Vomiting, Abdominal cramping : No: Burning, Dysuria, Flank Pain, Hematuria Musculoskeletal: Yes: Joint Pain (L knee pain), Joint Swelling (L knee). No: Back Pain, Muscle Pain, Muscle Weakness, Neck Pain, Joint Stiffness Integumentary: No: Change in Color, Erythema, Lesions Neurological: Yes: Headache. No: Numbness, Paresthesia, Tingling, Tremors *Physical Exam - Vital Signs Last Vital Signs Temp Pulse Resp BP Pulse Ox 98.4 F 88 16 109/57 L 100 08/30/18 13:38 08/30/18 13:38 08/30/18 13:38 08/30/18 13:38 08/30/18 13:38 - Physical Exam Comments: 08/30/18 15:02 Pt resting in bed comfortably with Trach tube in place and patterson catheter in place. General Appearance: Yes: Nourished, Appropriately Dressed, Other (sharad appearance). No: Apparent Distress HEENT: positive: EOMI, AYESHA, Pharynx Normal, Hearing Grossly Normal. negative: Pharyngeal Erythema, Tonsillar Exudate Neck: positive: Trachea midline, Supple, Other (trach tube in place, no secretions. ). negative: Lymphadenopathy (R), Lymphadenopathy (L) Respiratory/Chest: positive: Wheezing (in lung garcia bilaterally). negative: Chest Tender, Accessory Muscle Use, Decreased Breath Sounds, Crackles, Rales, Rhonchi Cardiovascular: positive: Regular Rhythm, Regular Rate, S1, S2. negative: Edema , JVD, Murmur Vascular Pulses: Carotid (R): 2+, Carotid (L): 2+, Dorsalis-Pedis (R): 2+, Doralis-Pedis (L): 2+ Gastrointestinal/Abdominal: positive: Normal Bowel Sounds, Soft. negative: Guarding, Rebound, Tenderness Musculoskeletal: positive: Other (No L knee swelling. Tender to palpation laterally and medially. Pain with passive ROM and active ROM. No overylying erythma or warmth. negative jamal's, no movements with valgus or varus stress. ). negative: CVA Tenderness, CVA Tenderness (R), CVA Tenderness (L), Decreased Range of Motion (fulll rom of L knee), Muscle Spasm, Vertebral Tenderness Extremity: positive: Normal Capillary Refill. negative: Coldness, Cyanosis, Swelling, Calf Tenderness, Erythema Integumentary: positive: Normal Color, Dry, Warm. negative: Cyanotic, Erythema , Pale, Swelling Neurologic: positive: manufacturing analyst II-XII NML intact, Fully Oriented, Alert, Normal Mood/ Affect, Normal Response, Motor Strength 5/5. negative: Numbness, Sensory Deficit Deep Tendon Reflexes: Ankle (L): 2+, Ankle (R): 2+, Knee (L): 2+, Knee (R): 2+ ED Treatment Course - RADIOLOGY Radiology Studies Ordered: Category Date Time Status DUPLEX VASCUL US-1 LEG [US] Stat Ultrasound 08/30/18 14:27 Ordered Medical Decision Making - Medical Decision Making 08/30/18 15:06 Pt is a 52yo f with PMH of CVA 2 years ago, DVT on Eliquis, DM, COPD, asthma, Migraine, trach tube placement presenting to ED with complaints of L knee pain. Vitals: wnl PE: tender to palpation of L knee. No fluctuance, no erythema, no swelling, negative valgus and varus stress, negative lachmans wheezing in lung garcia bilaterally DDx: septic arthritis, hemarthrosis, avascular necrosis, osteopenia Low suspicoin for septic arthritis due to lack of fever, overlying erythema and swelling of joint. Pt is able to actively move knee. Lower suspicoin for hemarthrosis. Would not be able to tap due to pt on blood thinner and would cause further bleeding. Pt was seen here 4 days ago with similar complaints. No fx on knee xray however decreased bone density most likely due to chronic steroid use. Pt is on dilaudid at home and received morphine in ED. Will give 8mg morhpine and 1g po Tylenol. Pt last dose of gabapentin 400mg was at 6am today, due at 2 pm. Will give gabapentin 500mg. Will give pt duoneb treatment for wheezing. Ordered u/s of knee to r/o parr cyst. Pt is on dilaudid, gabapentin, steroids, baclofen and eliquis. Cannot give NSAID. Pt has pain management follow up and can make appointment with ortho. Pain is most likely due to chroniic steroid use causing avascular necrosis. If u/s negative, and pt feeling better, will d/c home. She has proper follow up with pain management and will make appointment for ortho. Pt is still ambulatory (she uses walker and wheelchair) and able to ambulate limb. 08/30/18 16:04 Ultrasound negative for dvt and parr's cyst Pt reported pain staying the same after ultrasuond. Ordered 4mg morphine, advised pt to not take Dilaudid for the rest of the day. pt hemodynamically stable, able to ambulate limb, has appropriate follow up, nothing acute happening. can be safely dc home. Will give pt rx for gabapenting 500mg tid for one week. Advised pt to see pcp, ortho and pain management. Pt agreed with plan. Understood return precautions. Arranging transportation. *DC/Admit/Observation/Transfer Diagnosis at time of Disposition: Knee pain Qualifiers: Chronicity: acute Laterality: left Qualified Code(s): M25.562 - Pain in left knee - Discharge Dispostion Disposition: HOME Condition at time of disposition: Good Decision to Admit order: No - Prescriptions Prescriptions: Gabapentin [Neurontin -] 500 mg PO Q8H #21 capsule - Referrals Referrals: Arnav Castorena MD [Staff Physician] - - Patient Instructions Additional Instructions: You were seen here today for evaluation of left knee pain. All your tests were normal. Please continue to take your pain medications at home as directed and remember to make an appointment with your pain management doctor for further evaluation and management of your pain. Remember to schedule an appointment with Dr. Castorena for evaluation of your knee. You have a prescription at your pharmacy for gabapentin 500mg. Do not take the 400mg prescription anymore. Please follow up with your primary care doctor for further management of your prescriptions. You can take extra strength Tylenol for your knee pain as well. The directions are on the bottle. Please take it as directed. Please come back to the emergency room if: your pain gets worse, you notice swelling and redness over your knee, your knee feels warmer than usual, you develop fever, you are unable to bend your knee or move your leg, or if any new concerning symptom develops. Thank you - Post Discharge Activity
[2018-08-30] MEDS ORDERED: MORPHINE SULFATE 10 MG/1 ML *VIAL ONE (14:48)
[2018-08-30] MEDS ORDERED: ACETAMINOPHEN 500 MG TABLET (FP) ONE (14:50)
--- NOTE | 2018-08-30 14:59 | PDOC ---
Attending Attestation - HPI HPI: This patient is a 52 year old female with PMHx of NIDDM, COPD on trach collar, A. fib on Xarelto, CVA 2, asthma, anxiety, depression, chronic back pain, migraines, uterine CA s/p hysterectomy, osteomyelitis of T6, T7 with subsequent removal and small bowel resection who returns to the ED for left knee pain that originally began on 08/26. Patient also complains of left ankle pain which is chronic as well as headache. Patient was scheduled to see ortho w/ Dr. Castorena but came to ED because she states pain worsened. Patient states she took her Dilaudid with no relief. Patient tried to make an appointment with Dr. Castorena however she felt the pain getting worse. She is also taking baclofen, gabapentin 400mg, prednisone. PCP: Dr. Jaquez Pain management: Tanika Turner Pulmonary:Dr. Medina Allergies: asa, ibuprofen Social: denies <Sharon Foreman - Last Filed: 08/30/18 15:24> - Resident Resident Name: Bren Nix - ED Attending Attestation I have performed the following: I have examined & evaluated the patient, The case was reviewed & discussed with the resident, I agree w/resident's findings & plan, Exceptions are as noted - Physicial Exam PE: 08/30/18 16:1 Reviewed residents PE - Medical Decision Making 08/30/18 16:20 52 years old chronically ill past medical history significant for non-insulin- dependent diabetes, COPD and trach collar telemetry steroids A. fib on serratus CVA 2 as well as anxiety depression chronic pain and migraines uterine cancer status post hysterectomy osteomyelitis to the ED with chronic knee and leg pain She had presented earlier to the emergency department for same had an x-ray done which shows very poor bone density Most likely patient suffers from avascular necrosis secondary to chronic steroid use There were no acute fractures dislocations noticeable Her course in the ED was notable for an ultrasound which demonstrated no blood clots she received IM pain medication with good improvement. We decided to increase her gabapentin to 500 mg 3 times a day she will call tomorrow morning to discuss with her pain management doctor as well as follow-up with orthopedics tomorrow Findings, the need for follow-up and strict return instructions discussed with patient. <hCino Ha - Last Filed: 08/30/18 16:20>
[2018-08-30] MEDS ORDERED: GABAPENTIN 100 MG CAPSULE (FP) ONE (15:17)
[2018-08-30] MEDS ORDERED: morphine SULFATE 4 MG/ML VIAL ONE (15:55)
[2018-08-30 16:12] VITALS: BP 127/79; PULSE 107
== END 2018-08-30 17:16 | disposition home or self-care (01) ==
LOC: JER 13:21
PROC: 3E0F7GC Introduction of Other Therapeutic Substance into Respiratory Tract, Via Natural or Artificial Opening (ICD-10-PCS; principal; 2018-08-30)
PROC: 3E033NZ Introduction of Analgesics, Hypnotics, Sedatives into Peripheral Vein, Percutaneous Approach (ICD-10-PCS; 2018-08-30)
PROC: 3E033NZ Introduction of Analgesics, Hypnotics, Sedatives into Peripheral Vein, Percutaneous Approach (ICD-10-PCS; 2018-08-30)
DX: M25.562 Pain in left knee (principal); I10 Essential (primary) hypertension; J44.9 Chronic obstructive pulmonary disease, unspecified; J45.909 Unspecified asthma, uncomplicated; E11.9 Type 2 diabetes mellitus without complications; Z86.73 Personal history of transient ischemic attack (TIA), and cerebral infarction without residual deficits; Z86.718 Personal history of other venous thrombosis and embolism; Z79.01 Long term (current) use of anticoagulants; Z93.0 Tracheostomy status
CPT/HCPCS: 93971-TC; 94640; 96372; 99281-25; J7620

== ENCOUNTER 2018-09-04 12:16 | Inpatient (IN) | payer OTHER ==
[2018-09-04] MEDS ORDERED: SODIUM CHLORIDE 0.9% 500 ML INFUS.BAG IV ONE (12:52)
--- NOTE | 2018-09-04 13:17 | PDOC ---
History of Present Illness - General Chief Complaint: Nausea/Vomiting Stated Complaint: NAUSEA/VOMITING Time Seen by Provider: 09/04/18 12:44 - History of Present Illness Initial Comments: 09/04/18 13:16 The patient is a 52 year old female with a PMH of NIDDM, COPD (s/p trach) Atrial Fibrillation (on Xarelto) CVA 2, asthma, anxiety, depression, chronic back pain, migraines, uterine CA s/p hysterectomy, osteomyelitis of T6, T7 with subsequent removal and small bowel resection who was BIBEMS c/o 3 day h/o vomiting and abdominal pain. Patient notes multiple daily episodes of bilious emesis as well as sharp, diffuse abdominal pain. Last BM was this morning and was normal. Patient is tolerating PO intake but states she has had decreased appetite 2/2 to her symptoms. The patient denies fevers/chills, chest pain, shortness of breath, numbness, tingling, cough, sore throat, recent travel or sick contacts. Allergy: Oxycodone, ASA, Fentanyl, Ibuprofen PMD: Dr. Manolo Jaquez Past History - Past Medical History Allergies/Adverse Reactions: Allergies Allergy/AdvReac Type Severity Reaction Status Date / Time oxycodone [Oxycodone] Allergy Severe Nausea Verified 08/30/18 13:41 oxycodone HCl [From Percocet] Allergy Severe Nausea Verified 08/30/18 13:41 aspirin Allergy Mild Verified 08/30/18 13:41 blueberry [Blueberry] Allergy Mild Swelling Verified 08/30/18 13:41 fentanyl Allergy Mild Vomiting Verified 09/04/18 13:33 ibuprofen Allergy Swelling Verified 09/04/18 13:35 Home Medications: Ambulatory Orders Albuterol Sulfate Inhaler - [Ventolin HFA Inhaler -] 2 puff IH Q4H PRN #0 inhaler 11/29/16 Acetaminophen [Tylenol .Regular Strength -] 650 mg PO Q6H PRN #0 tablet Apixaban [Eliquis -] 5 mg PO BID tablet 04/29/17 Baclofen 20 mg PO TID 07/09/18 Diltiazem HCl [Diltiazem 24Hr Cd] 240 mg PO BID 07/09/18 Levocetirizine Dihydrochloride 5 mg PO HS 07/09/18 Levothyroxine [Synthroid -] 50 mcg PO DAILY 07/09/18 Rosuvastatin Calcium [Crestor] 10 mg PO DAILY 07/09/18 Venlafaxine HCl ER [Effexor Xr -] 75 mg PO DAILY 07/09/18 Famotidine 40 mg PO BID 08/07/18 Hydromorphone HCl 4 mg PO Q4H 08/07/18 Mirabegron [Myrbetriq] 50 mg PO DAILY 08/07/18 Montelukast Na [Singulair -] 10 mg PO HS 08/07/18 Alprazolam [Xanax] 0.25 mg PO TID #15 tablet MDD 3 08/15/18 Doxepin HCl [Sinequan -] 25 mg PO DAILY #30 capsule 08/15/18 Linaclotide [Linzess] 145 mcg PO DAILY #30 cap 08/15/18 Pantoprazole Sodium [Protonix -] 40 mg PO DAILY #30 tablet.ec 08/15/18 Topiramate [Topamax -] 100 mg PO DAILY #30 tablet 08/15/18 Vortioxetine Hydrobromide [Trintellix] 20 mg PO DAILY #30 tablet 08/15/18 Gabapentin [Neurontin -] 500 mg PO Q8H #21 capsule 08/30/18 Insulin (Novolog) [Novolog] 0 units SQ AC 08/30/18 Ondansetron [Zofran -] 8 mg PO TID 08/30/18 Zolpidem Tartrate 10 mg PO HS MDD 1 09/04/18 Anemia: Yes Asthma: Yes (COPD, trach #8) Cancer: Yes (UTERINE) Cardiac Disorders: Yes (A-fib) CVA: No COPD: Yes CHF: No Dementia: No Diabetes: Yes GI Disorders: Yes (colitis, SB resection, GERD) Disorders: Yes (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) HTN: Yes Hypercholesterolemia: Yes Liver Disease: No Psychiatric Problems: Yes (ANXIETY) Seizures: Yes (5 yrs ago had a seizure ( zofran and reglan given together as per patient) Thyroid Disease: No - Surgical History Abdominal Surgery: Yes (BOWEL RESECTION) Appendectomy: Yes (removed 1998) Cardiac Surgery: No Cholecystectomy: No Lung Surgery: No Neurologic Surgery: No Orthopedic Surgery: Yes (Back Sx T7,6) - Immunization History Td Vaccination: Yes TDAP Vaccination: Yes Immunization Up to Date: Yes - Suicide/Smoking/Psychosocial Hx Smoking Status: No Smoking History: Unknown if ever smoked Have you smoked in the past 12 months: No Number of Cigarettes Smoked Daily: 3 If you are a former smoker, when did you quit?: 2014 'Breaking Loose' booklet given: 03/12/15 Hx Alcohol Use: No Drug/Substance Use Hx: No Substance Use Type: None Hx Substance Use Treatment: No Review of Systems - Review of Systems Constitutional: Yes: Chills. No: Fever HEENTM: No: Blurred Vision, Double Vision Respiratory: No: Cough, Shortness of Breath Cardiac (ROS): No: Chest Pain, Lightheadedness, Palpitations, Syncope ABD/GI: Yes: Nausea, Vomiting, Abdominal cramping. No: Constipated, Diarrhea, Tarry Stools *Physical Exam - Vital Signs Last Vital Signs Temp Pulse Resp BP Pulse Ox 98.5 F 120 H 136/79 99 09/04/18 12:17 09/04/18 12:17 09/04/18 12:17 09/04/18 12:17 - Physical Exam General Appearance: Yes: Nourished, Other (Trach collar in place) HEENT: positive: Normal Voice, Hearing Grossly Normal Neck: positive: Trachea midline, Supple Respiratory/Chest: positive: Lungs Clear, Normal Breath Sounds. negative: Labored Respiration, Rapid RR Cardiovascular: positive: S1, S2. negative: JVD Vascular Pulses: Dorsalis-Pedis (R): 2+, Doralis-Pedis (L): 2+ Gastrointestinal/Abdominal: positive: Normal Bowel Sounds, Soft, Other (LLQ TTP w/o peritoneal signs). negative: Distended, Guarding Musculoskeletal: negative: CVA Tenderness (R), CVA Tenderness (L) Extremity: positive: Normal Capillary Refill, Normal Inspection Integumentary: positive: Normal Color, Dry, Warm Neurologic: positive: Fully Oriented, Alert Heart Score/ECG Review - Age Age: </= 45 - ECG Impressions Comment:: 09/04/18 20:15 Sinus Tachycardia, HR 122, no SERG/STD/TWI, poor R wave progression V1-V6 ED Treatment Course - LABORATORY CBC & Chemistry Diagram: 09/04/18 14:54 09/04/18 14:54 - RADIOLOGY Radiology Studies Ordered: Category Date Time Status CXRPORT [CHEST X-RAY PORTABLE*] [RAD] Stat Radiology 09/04/18 13:01 Ordered Medical Decision Making - Medical Decision Making 09/04/18 13:20 52 year old female with abdominal pain + bilious emesis. H/o SBO. Tachycardic @ presentation. Frontal diagnosis: diverticulitis, SBO, mesenteric ischemic, colitis,gastroenteritis, PUD, bowel perforation. Will obtain basic labs, lipase , EKG, + CT Abdomen. IV Fluids, Morphine, Zofran. Reassess. ECG shows Sinus Tach HR 122, no SERG/STD/TWI 09/04/18 16:36 UA shows WBC 731, 2+ Blood, 3+ Leukocyte Esterase A review of EMR shows h/o multi-resistant UTI (E. Coli, Proteus Mirabalis, S. Epidermis). Susceptibility to Zosyn. Dr. Cpaps (covers for Dr. Jaquez) paged for admission; hospitalist [employer] covering , paged Tachycardia resolved CT abdomen pending, however patient tolerating PO intake including turkey sandwich while awaiting CT scan. 09/04/18 20:01 [employer] was unable to complete admission prior to shift change, paged hospitalist team. Patient accepted by inpatient medicine service for further evaluation including IV antibiotics. CT read pending, my read shows no SBO. Patient's pain controlled with Morphine + Reglan. Patient signed out to Dr. Barton (Resident) and Dr. Brannon (Attending) *DC/Admit/Observation/Transfer Diagnosis at time of Disposition: Abdominal pain - Discharge Dispostion Condition at time of disposition: Fair Decision to Admit order: Yes - Referrals - Patient Instructions - Post Discharge Activity
--- NOTE | 2018-09-04 14:32 | PDOC ---
Attending Attestation - Resident Resident Name: AnushkaLatasha - ED Attending Attestation I have performed the following: I have examined & evaluated the patient, The case was reviewed & discussed with the resident, I agree w/resident's findings & plan, Exceptions are as noted - HPI HPI: 09/04/18 14:31 52-year-old female history of diabetes, COPD status post trach, atrial fibrillation, stroke, asthma, anxiety, depression, chronic back pain, migraines , urine cancer status post cystectomy, osteomyelitis, small bowel resection presents with diffuse abdominal pain and left for quadrant pain. Patient reported 3 days of the symptoms. Reports decreased appetite but no fevers or chills. Reports normal bowel movements since yesterday. - Physicial Exam PE: 09/04/18 14:31 GENERAL: Awake, alert, and fully oriented, in no acute distress HEAD: No signs of trauma EYES: EOMI, sclera anicteric, conjunctiva clear ENT: Auricles normal inspection, hearing grossly normal, nares patent, Moist mucosa NECK: Normal ROM, supple, trach in place, clean, dry intact. LUNGS: Breath sounds equal, clear to auscultation bilaterally. No wheezes, and no crackles HEART: Regular rate and rhythm, normal S1 and S2, no murmurs, rubs or gallops ABDOMEN: Soft, TTP LLQ. No guarding, no rebound. No masses EXTREMITIES: Normal range of motion, no edema. No clubbing or cyanosis. No cords, erythema, or tenderness NEUROLOGICAL: Cranial nerves II through XII grossly intact. Normal speech SKIN: Warm, Dry, normal turgor, no rashes or lesions noted. - Medical Decision Making 09/04/18 14:31 Vital Signs Temp Pulse Resp BP Pulse Ox 98.5 F 120 H 136/79 99 09/04/18 12:17 09/04/18 12:17 09/04/18 12:17 09/04/18 12:17 Patient with multiple comorbidities and left lower quadrant pain. Has multiple episodes nausea vomiting. Differential includes diverticulitis versus small bowel obstruction versus colitis versus gastroenteritis. We'll obtain labs, CAT scan and pelvis and reassess. 09/04/18 16:26 CBC, BMP 09/04/18 14:54 09/04/18 14:54 CMP Sodium 138 mmol/L (136-145) 09/04/18 14:54 Potassium 3.6 mmol/L (3.5-5.1) 09/04/18 14:54 Chloride 102 mmol/L (98-107) 09/04/18 14:54 Carbon Dioxide 30 mmol/L (21-32) 09/04/18 14:54 Anion Gap 6 MMOL/L (8-16) L 09/04/18 14:54 BUN 10 mg/dL (7-18) 09/04/18 14:54 Creatinine 0.7 mg/dL (0.55-1.3) 09/04/18 14:54 Creat Clearance w eGFR > 60 (>60) 09/04/18 14:54 Random Glucose 253 mg/dL (74-106) H 09/04/18 14:54 Lactic Acid 2.1 mmol/L (0.4-2.0) H 09/04/18 14:54 Calcium 8.6 mg/dL (8.5-10.1) 09/04/18 14:54 Total Bilirubin 0.3 mg/dL (0.2-1) 09/04/18 14:54 AST 13 U/L (15-37) L 09/04/18 14:54 ALT 27 U/L (13-61) 09/04/18 14:54 Alkaline Phosphatase 125 U/L (45-117) H 09/04/18 14:54 Creatine Kinase 69 IU/L (26-192) 09/04/18 14:54 Troponin I < 0.02 ng/ml (0.00-0.05) 09/04/18 14:54 Total Protein 6.5 g/dl (6.4-8.2) 09/04/18 14:54 Albumin 3.0 g/dl (3.4-5.0) L 09/04/18 14:54 Lipase 155 U/L (73-393) 09/04/18 14:54 Urine Test Results Urine Color Yellow 09/04/18 15:13 Urine Appearance Turbid 09/04/18 15:13 Urine pH 6.0 (5.0-8.0) 09/04/18 15:13 Ur Specific Tolar 1.016 (1.010-1.035) 09/04/18 15:13 Urine Protein 2+ (NEGATIVE) H 09/04/18 15:13 Urine Glucose (UA) Negative (NEGATIVE) 09/04/18 15:13 Urine Ketones Negative (NEGATIVE) 09/04/18 15:13 Urine Blood 2+ (NEGATIVE) H 09/04/18 15:13 Urine Nitrite Positive (NEGATIVE) 09/04/18 15:13 Urine Bilirubin Negative (<2.0 mg/dL) 09/04/18 15:13 Ur Leukocyte Esterase 3+ (NEGATIVE) H D 09/04/18 15:13 Labs reviewed. Positive for UTI. However, as multiple drug resistant UTI, sensitive to zosyn. Has history of multiple drug resistance. Will need to admit. CT pending.
[2018-09-04] MEDS ORDERED: morphine CARPU-JECT 4 MG/1 ML DISP.SYRIN IVPUSH ONE ×2 (15:34→18:22)
[2018-09-04 15:35] LABS: BASO % 0.6 % (0-2.0); EOS % 2.2 % (0-4.5); HEMATOCRIT 31.1 % (32.4-45.2); HEMOGLOBIN 9.6 GM/dL (10.7-15.3); LYMPH % 11.6 % (8-40); MCH 22.9 pg (25.7-33.7); MCHC 30.9 g/dl (32.0-36.0); MEAN CELL VOLUME 74.2 fl (80-96); MEAN PLT VOLUME 9.1 fl (7.5-11.1); MONO % 5.9 % (3.8-10.2); NEUT % 79.7 % (42.8-82.8); PLATELET COUNT 310 K/MM3 (134-434); RBC 4.19 M/mm3 (3.60-5.2); WHITE BLOOD COUNT 10.6 K/mm3 (4.0-10.0)
[2018-09-04 15:36] LABS: URINE APPEARANCE TURBID; URINE BILIRUBIN NEGATIVE (<2.0 mg/dL); URINE GLUCOSE (UA) NEGATIVE (NEGATIVE); URINE KETONE NEGATIVE (NEGATIVE); URINE LEUK ESTERASE 3+ (NEGATIVE); URINE NITRITE POSITIVE (NEGATIVE); URINE PROTEIN 2+ (NEGATIVE); URINE UROBILINOGEN NEGATIVE mg/dL (0.2-1.0)
[2018-09-04] MEDS ORDERED: BACITRACIN 15 GM TUBE TOPICAL OINTMENT TP ONE (15:36)
[2018-09-04] MEDS ORDERED: ONDANSETRON 4 MG/2 ML VIAL IVPUSH ONE (15:45)
[2018-09-04] MEDS ORDERED: morphine SULFATE 4 MG/ML VIAL ONE ×3 (15:46→21:23)
[2018-09-04] MEDS ORDERED: ONDANSETRON 4 MG/2 ML VIAL ONE (15:46)
[2018-09-04 15:53] LABS: URINE COLOR YELLOW
[2018-09-04 15:59] LABS: ALK PHOS 125 U/L (45-117); ANION GAP 6 MMOL/L (8-16); BILIRUBIN,TOTAL 0.3 mg/dL (0.2-1); BLOOD UREA NITROGEN 10 mg/dL (7-18); CALCIUM 8.6 mg/dL (8.5-10.1); CHLORIDE 102 mmol/L (98-107); CO2 30 mmol/L (21-32); CREATININE 0.7 mg/dL (0.55-1.3); GLUCOSE,RANDOM 253 mg/dL (74-106); LIPASE 155 U/L (73-393); POTASSIUM 3.6 mmol/L (3.5-5.1); SGOT/AST 13 U/L (15-37); SGPT/ALT 27 U/L (13-61); SODIUM 138 mmol/L (136-145); TOT PROT 6.5 g/dl (6.4-8.2)
[2018-09-04 16:29] LABS: URINE BACTERIA RARE /hpf (NONE SEEN); URINE MUCUS RARE
[2018-09-04] MEDS ORDERED: PIPERACILLIN/TAZOB 4.5 GM 4.5 GM in DEXTROSE 5%-WATER 100 ML IVPB ONE (16:31)
[2018-09-04] MEDS ORDERED: PIPERACILLIN/TAZOB 4.5 GM 4.5 GM/100 ML BAG IVPB ONE (16:49)
[2018-09-04 16:50] LABS: INR 1.47 (0.83-1.09); PROTHROMBIN TIME (PATIENT) 17.4 SEC (9.7-13.0)
[2018-09-04 16:53] LABS: ACTIVATED PTT 31.2 SECONDS (25.2-36.5)
[2018-09-04] MEDS ORDERED: BACITRACIN 0.9 GM PACKET ONE (17:17)
[2018-09-04] MEDS ORDERED: BACITRACIN 15 GM TUBE TOPICAL OINTMENT ONE (17:18)
[2018-09-04] MEDS ORDERED: METOCLOPRAMIDE HCL INJECTION 10 MG/2 ML VIAL IVPUSH ONE (18:25)
[2018-09-04] MEDS ORDERED: METOCLOPRAMIDE HCL INJECTION 10 MG/2 ML VIAL ONE (18:27)
[2018-09-04] MEDS ORDERED: MORPHINE SULFATE 2 MG/ML VIAL ONE (18:28)
[2018-09-04] MEDS ORDERED: QUEtiapine FUMARATE 100 MG TABLET (FP) PO ONE (18:29)
[2018-09-04] MEDS ORDERED: QUEtiapine FUMARATE 100 MG TABLET (FP) ONE (19:05)
--- NOTE | 2018-09-04 19:59 | PN ---
Teaching Attending Note Name of Resident: Twyla Jones ATTENDING PHYSICIAN STATEMENT I saw and evaluated the patient. I reviewed the resident's note and discussed the case with the resident. I agree with the resident's findings and plan as documented. SUBJECTIVE: Patient is a 52 year old woman with a PMH of NIDDM, COPD (s/p trach) Atrial Fibrillation (on Xarelton) CVA 2, asthma, anxiety, MRSA infection, ESBL Klebsiella UTI, depression, chronic back pain, migraines, uterine CA s/p hysterectomy, osteomyelitis of T6, T7 with subsequent removal and small bowel resection who was BIBEMS complaining of 3 day history of vomiting and abdominal pain. Patient notes multiple daily episodes of bilious emesis as well as sharp , diffuse abdominal pain. Last BM was this morning and was normal. Has been bed bound and unable to ambulate since her last back surgery. Indwelling patterson placed on and scheduled for removal on 09/17/18. In the ER, she asked for food and tolerated PO inatake. OBJECTIVE: Alert Vital Signs Period Temp Pulse Resp BP Sys/Dan Pulse Ox Last 24 Hr 98.5 F 120 136/79 98-99 HEENT: No Jaundice, eye redness or discharge, PERRLA, EOMI. Normocephalic, atraumatic. External ears are normal and hearing is grossly intact. No nasal discharge. Neck: Supple, nontender. Tracheostomy in place. No palpable adenopathy or thyromegaly. No JVD Chest: Good effort. Clear to auscultation and percussion. Heart: Regular. No S3, rub or murmur Abdomen: Not distended, soft, nontender and no HSM. Central obesity. No rebound or guarding. Normoactive bowel sounds. Ext: Peripheral pulses intact. No leg edema. Skin: Warm and dry. No petechiae, rash or ecchymosis. Neuro: Alert. Oriented x3. CN 2-12 grossly intact. Moves all limbs but unable to ambulate. Sensation grossly intact in all four extremities. Home Medications Medication Instructions Recorded Albuterol Sulfate Inhaler - 2 puff IH Q4H PRN #0 inhaler 11/29/16 [Ventolin HFA Inhaler -] Acetaminophen [Tylenol .Regular 650 mg PO Q6H PRN #0 tablet 03/27/17 Strength -] Apixaban [Eliquis -] 5 mg PO BID tablet 04/29/17 Baclofen 20 mg PO TID 07/09/18 Diltiazem HCl [Diltiazem 24Hr Cd] 240 mg PO BID 07/09/18 Levocetirizine Dihydrochloride 5 mg PO HS 07/09/18 Levothyroxine [Synthroid -] 50 mcg PO DAILY 07/09/18 Rosuvastatin Calcium [Crestor] 10 mg PO DAILY 07/09/18 Venlafaxine HCl ER [Effexor Xr -] 75 mg PO DAILY 07/09/18 Famotidine 40 mg PO BID 08/07/18 Hydromorphone HCl 4 mg PO Q4H 08/07/18 Mirabegron [Myrbetriq] 50 mg PO DAILY 08/07/18 Montelukast Na [Singulair -] 10 mg PO HS 08/07/18 Alprazolam [Xanax] 0.25 mg PO TID #15 tablet MDD 3 08/15/18 Doxepin HCl [Sinequan -] 25 mg PO DAILY #30 capsule 08/15/18 Linaclotide [Linzess] 145 mcg PO DAILY #30 cap 08/15/18 Pantoprazole Sodium [Protonix -] 40 mg PO DAILY #30 tablet.ec 08/15/18 Topiramate [Topamax -] 100 mg PO DAILY #30 tablet 08/15/18 Vortioxetine Hydrobromide 20 mg PO DAILY #30 tablet 08/15/18 [Trintellix] Gabapentin [Neurontin -] 500 mg PO Q8H #21 capsule 08/30/18 Insulin (Novolog) [Novolog] 0 units SQ AC 08/30/18 Ondansetron [Zofran -] 8 mg PO TID 08/30/18 Zolpidem Tartrate 10 mg PO HS MDD 1 09/04/18 Abnormal Lab Results 09/04/18 09/04/18 09/04/18 14:54 14:54 14:54 WBC 10.6 H Hgb 9.6 L Hct 31.1 L MCV 74.2 L MCH 22.9 L MCHC 30.9 L RDW 20.0 H Absolute Neuts (auto) 8.5 H PT with INR INR Anion Gap 6 L Random Glucose 253 H Lactic Acid 2.1 H AST 13 L Alkaline Phosphatase 125 H Albumin 3.0 L Urine Protein Urine Blood Ur Leukocyte Esterase 09/04/18 09/04/18 14:54 15:13 WBC Hgb Hct MCV MCH MCHC RDW Absolute Neuts (auto) PT with INR 17.40 H INR 1.47 H Anion Gap Random Glucose Lactic Acid AST Alkaline Phosphatase Albumin Urine Protein 2+ H Urine Blood 2+ H Ur Leukocyte Esterase 3+ H D ASSESSMENT AND PLAN: 1. Sepsis due to UTI - Patient has had ESBL Klebsiella pneumonia - will treat with IV Ertapenem pending urine culture report and place her on contact isolation. Change patterson. Give IV NS and trend lactic acid level. Continue Eliquis for Afib. 2. DM - For now, we will hold the home diabetes drugs and implement sliding scale insulin regimen. Provide comprehensive diabetes care with patient teaching and counseling about the importance of euglycemia, eye care and foot care. 3. Low MCV Anemia - Etiology unclear. Will do basic anemia work up including serial stool guaiacs, reticulocyte count and iron studies. 4. Obesity - Will provide patient all the necessary assistance, counseling and positive reinforcement to facilitate weight loss. Consult community aide. 5. Polypharmacy - Need to coordinate with her PCP to reduce her total number of medications. 6. DVT prophylaxis - On Eliquis 7. Advance directives - Full code
[2018-09-04] MEDS ORDERED: ERTAPENEM SODIUM 1 GM/50 ML PRE-DOCKED IVPB SCH (21:00)
[2018-09-04] MEDS ORDERED: ALBUTEROL SO4 8 GM HFA INHALER IH PRN (21:02)
--- NOTE | 2018-09-04 21:05 | HP ---
CHIEF COMPLAINT:vomiting, abdominal pain PCP: HISTORY OF PRESENT ILLNESS: Patient is a 52 year old female with past medical history of DM, COPD (s/p tracheostomy), asthma, anxiety, depression, chronic back pain, atrial fibrillation, CVA x2, HLD, HTN, migraines, Uterine CA s/p hyterectomy, SB mass s /p resection, Osteomyelitis of T6 and T7 s/p resection, presented with vomiting and abdominal pain for 3 days. Patient reported episodes of greenish vomitus initially, that became yellowish, nonbloody, accompanied by sharp diffuse abdominal pain. Patient reported nausea and unable to tolerate PO. With persistence of vomiting and abdominal pain patient came to the ED. Of note, patient has been on patterson catheter since 08/26/18 for a "weak bladder". She follows up with Dr. Jaramillo and it was scheduled to be removed on 09/17/18. Patient has also been bed bound, unable to walk since her back surgery in 2011. ER course was notable for: (1)UA: 2+RUBÉN, 2+Blood, +Nitrite, 3+leukocyte esterase, 731 WBC, 18 blood (2)Zosyn 4.5 g given (3)Morphine 10mg given Recent Travel:denies any recent travel PAST MEDICAL HISTORY: DM COPD (s/p tracheostomy) asthma anxiety depression chronic back pain atrial fibrillation CVA x2 HLD HTN migraines Uterine CA s/p hyterectomy SB mass s/p resection 6Osteomyelitis of T6 and T7 PAST SURGICAL HISTORY: Hysterectomy (2008) Small bowel resection (2008) Appendectomy (1998) Back surgery (2010,2011) Tracheostomy (2015) Social History: Smoking: Alcohol: Drugs: Family History:non contributory Allergies oxycodone [Oxycodone] Allergy (Severe, Verified 08/30/18 13:41) Nausea oxycodone HCl [From Percocet] Allergy (Severe, Verified 08/30/18 13:41) Nausea aspirin Allergy (Mild, Verified 08/30/18 13:41) blueberry [Blueberry] Allergy (Mild, Verified 08/30/18 13:41) Swelling fentanyl Allergy (Mild, Verified 09/04/18 13:33) Vomiting ibuprofen Allergy (Verified 09/04/18 13:35) Swelling as per pt: neck swelling HOME MEDICATIONS: Home Medications Medication Instructions Recorded Albuterol Sulfate Inhaler - 2 puff IH Q4H PRN #0 inhaler 11/29/16 [Ventolin HFA Inhaler -] Acetaminophen [Tylenol .Regular 650 mg PO Q6H PRN #0 tablet 03/27/17 Strength -] Apixaban [Eliquis -] 5 mg PO BID tablet 04/29/17 Baclofen 20 mg PO TID 07/09/18 Diltiazem HCl [Diltiazem 24Hr Cd] 240 mg PO BID 07/09/18 Levocetirizine Dihydrochloride 5 mg PO HS 07/09/18 Levothyroxine [Synthroid -] 50 mcg PO DAILY 07/09/18 Rosuvastatin Calcium [Crestor] 10 mg PO DAILY 07/09/18 Venlafaxine HCl ER [Effexor Xr -] 75 mg PO DAILY 07/09/18 Famotidine 40 mg PO BID 08/07/18 Hydromorphone HCl 4 mg PO Q4H 08/07/18 Mirabegron [Myrbetriq] 50 mg PO DAILY 08/07/18 Montelukast Na [Singulair -] 10 mg PO HS 08/07/18 Alprazolam [Xanax] 0.25 mg PO TID #15 tablet MDD 3 08/15/18 Doxepin HCl [Sinequan -] 25 mg PO DAILY #30 capsule 08/15/18 Linaclotide [Linzess] 145 mcg PO DAILY #30 cap 08/15/18 Pantoprazole Sodium [Protonix -] 40 mg PO DAILY #30 tablet.ec 08/15/18 Topiramate [Topamax -] 100 mg PO DAILY #30 tablet 08/15/18 Vortioxetine Hydrobromide 20 mg PO DAILY #30 tablet 08/15/18 [Trintellix] Gabapentin [Neurontin -] 500 mg PO Q8H #21 capsule 08/30/18 Insulin (Novolog) [Novolog] 0 units SQ AC 08/30/18 Ondansetron [Zofran -] 8 mg PO TID 08/30/18 Zolpidem Tartrate 10 mg PO HS MDD 1 09/04/18 REVIEW OF SYSTEMS CONSTITUTIONAL: Absent: fever, chills, diaphoresis, generalized weakness, malaise, loss of appetite, weight change HEENT: Absent: rhinorrhea, nasal congestion, throat pain, throat swelling, difficulty swallowing, mouth swelling, ear pain, eye pain, visual changes CARDIOVASCULAR: Absent: chest pain, syncope, palpitations, irregular heart rate, lightheadedness , peripheral edema RESPIRATORY: Absent: cough, shortness of breath, dyspnea with exertion, orthopnea, wheezing, stridor, hemoptysis GASTROINTESTINAL:abdominal pain, nausea, vomiting Absent: abdominal distension, diarrhea, constipation, melena, hematochezia GENITOURINARY: Absent: dysuria, frequency, urgency, hesitancy, hematuria, flank pain, genital pain MUSCULOSKELETAL: back pain Absent: myalgia, arthralgia, joint swelling, neck pain SKIN: Absent: rash, itching, pallor HEMATOLOGIC/IMMUNOLOGIC: Absent: easy bleeding, easy bruising, lymphadenopathy, frequent infections ENDOCRINE: Absent: unexplained weight gain, unexplained weight loss, heat intolerance, cold intolerance NEUROLOGIC: Absent: headache, focal weakness or paresthesias, dizziness, unsteady gait, seizure, mental status changes, bladder or bowel incontinence PSYCHIATRIC: Absent: anxiety, depression, suicidal or homicidal ideation, hallucinations. PHYSICAL EXAMINATION Vital Signs - 24 hr 09/04/18 09/04/18 12:17 13:55 Temperature 98.5 F Respiratory 120 H Rate Blood Pressure 136/79 O2 Sat by Pulse 99 98 Oximetry (%) GENERAL: Awake, alert, and fully oriented, obese, bedridden, with atrophy of all 4 extremities, in no acute distress. HEAD: Normal with no signs of trauma. EYES: PERRLA, EOMI, sclera anicteric, conjunctiva clear. No lid lag. EARS, NOSE, THROAT: Ears normal, nares patent, oropharynx clear without exudates. Moist mucous membranes. NECK: Tracheostomy tube in place, at 6lpm LUNGS: Breath sounds equal, clear to auscultation bilaterally. HEART: Regular rate and rhythm, normal S1 and S2 without murmur, rub or gallop. ABDOMEN: Soft, +LLQ tenderness on deep palpation, not distended, normoactive bowel sounds, no guarding, no rebound, no masses. MUSCULOSKELETAL: Normal range of motion at all joints. No bony deformities or tenderness. No CVA tenderness. UPPER EXTREMITIES: 2+ pulses, warm, well-perfused. No cyanosis. No clubbing. No peripheral edema. PROM/AROM intact, motor 5/5, sensation intact. LOWER EXTREMITIES: 2+ pulses, warm, well-perfused. No calf tenderness. No peripheral edema. Limited PROM/AROM due to pain, sensation intact. NEUROLOGICAL: Cranial nerves II-XII intact. Normal speech. Normal gait. PSYCHIATRIC: Cooperative. Good eye contact. Appropriate mood and affect. SKIN: Warm, dry, normal turgor, no rashes or lesions noted, normal capillary refill. Laboratory Results - last 24 hr 09/04/18 09/04/18 09/04/18 14:54 14:54 14:54 WBC 10.6 H RBC 4.19 Hgb 9.6 L Hct 31.1 L MCV 74.2 L MCH 22.9 L MCHC 30.9 L RDW 20.0 H Plt Count 310 D MPV 9.1 Absolute Neuts (auto) 8.5 H Neutrophils % 79.7 Lymphocytes % 11.6 Monocytes % 5.9 Eosinophils % 2.2 Basophils % 0.6 Nucleated RBC % 0 PT with INR INR PTT (Actin FS) Sodium 138 Potassium 3.6 Chloride 102 Carbon Dioxide 30 Anion Gap 6 L BUN 10 Creatinine 0.7 Creat Clearance w eGFR > 60 Random Glucose 253 H Lactic Acid 2.1 H Calcium 8.6 Total Bilirubin 0.3 AST 13 L ALT 27 Alkaline Phosphatase 125 H Creatine Kinase 69 Troponin I < 0.02 Total Protein 6.5 Albumin 3.0 L Lipase 155 Urine Color Urine Appearance Urine pH Ur Specific Carl[place] Urine Protein Urine Glucose (UA) Urine Ketones Urine Blood Urine Nitrite Urine Bilirubin Urine Urobilinogen Ur Leukocyte Esterase Urine WBC (Auto) Urine RBC (Auto) Urine Bacteria Urine Mucus 09/04/18 09/04/18 14:54 15:13 WBC RBC Hgb Hct MCV MCH MCHC RDW Plt Count MPV Absolute Neuts (auto) Neutrophils % Lymphocytes % Monocytes % Eosinophils % Basophils % Nucleated RBC % PT with INR 17.40 H INR 1.47 H PTT (Actin FS) 31.2 Sodium Potassium Chloride Carbon Dioxide Anion Gap BUN Creatinine Creat Clearance w eGFR Random Glucose Lactic Acid Calcium Total Bilirubin AST ALT Alkaline Phosphatase Creatine Kinase Troponin I Total Protein Albumin Lipase Urine Color Yellow Urine Appearance Turbid Urine pH 6.0 Ur Specific Carl[place] 1.016 Urine Protein 2+ H Urine Glucose (UA) Negative Urine Ketones Negative Urine Blood 2+ H Urine Nitrite Positive Urine Bilirubin Negative Urine Urobilinogen Negative Ur Leukocyte Esterase 3+ H D Urine WBC (Auto) 731 Urine RBC (Auto) 18 Urine Bacteria Rare Urine Mucus Rare ASSESSMENT/PLAN: Patient is a 52 year old female with past medical history of DM, COPD (s/p tracheostomy), asthma, anxiety, depression, chronic back pain, atrial fibrillation, CVA x2, HLD, HTN, migraines, Uterine CA s/p hyterectomy, SB mass s /p resection, Osteomyelitis of T6 and T7 s/p resection, presented with vomiting and abdominal pain for 3 days. #Complicated UTI -On patterson catheter since 08/26/18 for a "weak bladder" -Follows up with Dr. Jaramillo, scheduled to be removed on 09/17/18 -Previous cultures - +Klebsiella ESBL(2017), E.coli, E.faecalis, S.epidermidis, Proteus (2018) -Will start on Ertapenem 1gm -Urine cultures pending -Contact isolation for MRSA,ESBL -ID consulted. #Chronic back pain -Neurontin 500mg q8 and Dilaudid 4mg q4h at home. -Patient reports can not tolerate PO. -Will give Morphine 4mg q6h for now. May switch to PO in the AM when tolerated. #DM -On Tresiba -Insulin sliding scale implemented -Monitor BGM ACHS #Hypertension -Continue Diltiazem 240mg BID #Hyperlipidemia -continue Crestor 10mg HS #COPD -s/p tracheostomy -Continue Ventolin inh PRN -Singulair inh #Atrial Fibrillation -continue Eliquis 5mg BID -continue Diltiazem 240mg BID #Hypothyroidism -continue Synthroid 50mcg #Depression, Anxiety -continue home medications #FEN -IV NS @75ml/hr -electrolytes wnl, routine bmp monitoring -diabetic/sodium restricted diet #Prophylaxis -On Eliquis 5mg BID #Disposition -admit to med-surg Visit type - Emergency Visit Emergency Visit: Yes ED Registration Date: 09/04/18 Care time: The patient presented to the Emergency Department on the above date and was hospitalized for further evaluation of their emergent condition. - New Patient This patient is new to me today: Yes Date on this admission: 09/05/18 - Critical Care Critical Care patient: No
[2018-09-04] MEDS ORDERED: GABAPENTIN 300 MG CAPSULE (FP) PO SCH (21:15)
[2018-09-04] MEDS: SODIUM CHLORIDE 1,000 ML IV SCH (21:22)
[2018-09-04] MEDS: morphine SULFATE 4 MG/ML VIAL IVPUSH PRN (21:28)
[2018-09-04] MEDS ORDERED: FAMOTIDINE 40 MG PO SCH (22:00)
[2018-09-04] MEDS ORDERED: BACLOFEN 10 MG TABLET (FP) ONE (23:46)
[2018-09-04] MEDS ORDERED: ONDANSETRON 8 MG TABLET (FP) PO ONE (23:46)
[2018-09-04] MEDS ORDERED: ALPRAZolam 0.25 MG TABLET ONE (23:46)
[2018-09-04] MEDS ORDERED: LORATADINE 10 MG TABLET ONE (23:47)
[2018-09-04] MEDS ORDERED: MONTELUKAST NA 10 MG TABLET ONE (23:47)
[2018-09-04] MEDS ORDERED: ACETAMINOPHEN 325 MG TABLET (FP) ONE (23:47)
[2018-09-04] MEDS ORDERED: HEMOQUE TEST 1 EACH EACH ONE (23:50)
[2018-09-04] MEDS: ALPRAZolam 0.25 MG TABLET PO SCH (23:52)
[2018-09-04] MEDS: LORATADINE 10 MG TABLET PO SCH (23:52)
[2018-09-04] MEDS: ERTAPENEM SODIUM 1 GM in SODIUM CHLORIDE 50 ML IVPB SCH (23:52)
[2018-09-04] MEDS: ONDANSETRON 4 MG TABLET PO SCH (23:52)
[2018-09-04] MEDS: MONTELUKAST NA 10 MG TABLET PO SCH (23:52)
[2018-09-04] MEDS: BACLOFEN 10 MG TABLET (FP) PO SCH (23:52)
[2018-09-05] MEDS: APIXABAN 5 MG TABLET PO SCH ×2 (00:01→12:12)
[2018-09-05] MEDS: GABAPENTIN 300 MG, GABAPENTIN 200 MG PO SCH ×3 (00:01→16:59)
[2018-09-05] MEDS: INSULIN SLIDING SCALE (NOVOLOG) 1 VIAL SQ SCH ×4 (00:06→17:26)
[2018-09-05] MEDS ORDERED: INSULIN (NOVOLOG) ASPART 100 UNITS/ML 10ML VIAL ONE ×4 (00:08→17:29)
[2018-09-05] MEDS: ACETAMINOPHEN 325 MG TABLET (FP) PO PRN (00:10)
[2018-09-05] MEDS ORDERED: ZOLPIDEM TARTRATE 5 MG TABLET ONE (01:19)
[2018-09-05] MEDS: ZOLPIDEM TARTRATE 5 MG TABLET PO PRN (01:23)
[2018-09-05] MEDS ORDERED: ALPRAZolam 0.25 MG TABLET ONE (06:55)
[2018-09-05] MEDS ORDERED: BACLOFEN 10 MG TABLET (FP) ONE (06:55)
[2018-09-05] MEDS ORDERED: GABAPENTIN 100 MG CAPSULE (FP) ONE ×3 (06:55→23:58)
[2018-09-05] MEDS ORDERED: ONDANSETRON 8 MG TABLET (FP) PO ONE (06:55)
[2018-09-05] MEDS: BACLOFEN 10 MG TABLET (FP) PO SCH ×2 (07:25→16:56)
[2018-09-05] MEDS: ALPRAZolam 0.25 MG TABLET PO SCH ×2 (07:25→16:57)
[2018-09-05] MEDS: ONDANSETRON 4 MG TABLET PO SCH ×2 (07:26→17:03)
[2018-09-05] MEDS: LEVOTHYROXINE NA 50 MCG TABLET (FP) PO SCH (07:26)
[2018-09-05 07:56] LABS: BASO % 0.7 % (0-2.0); EOS % 3.1 % (0-4.5); HEMOGLOBIN 8.6 GM/dL (10.7-15.3); LYMPH % 16.9 % (8-40); MCH 22.9 pg (25.7-33.7); MCHC 30.5 g/dl (32.0-36.0); MEAN PLT VOLUME 9.4 fl (7.5-11.1); MONO % 8.8 % (3.8-10.2); NEUT % 70.5 % (42.8-82.8); PLATELET COUNT 206 K/MM3 (134-434); RBC 3.74 M/mm3 (3.60-5.2); RDW 20.1 % (11.6-15.6); WHITE BLOOD COUNT 9.7 K/mm3 (4.0-10.0)
[2018-09-05 09:01] LABS: ALBUMIN 2.8 g/dl (3.4-5.0); ALK PHOS 116 U/L (45-117); ANION GAP 11 MMOL/L (8-16); BILIRUBIN,TOTAL 0.3 mg/dL (0.2-1); BLOOD UREA NITROGEN 8 mg/dL (7-18); CALCIUM 7.7 mg/dL (8.5-10.1); CHLORIDE 107 mmol/L (98-107); CO2 24 mmol/L (21-32); CREATININE 0.7 mg/dL (0.55-1.3); GLUCOSE,RANDOM 226 mg/dL (74-106); MAGNESIUM 1.8 mg/dL (1.8-2.4); PHOSPHOROUS 2.9 mg/dL (2.5-4.9); SGOT/AST 32 U/L (15-37); SGPT/ALT 28 U/L (13-61); SODIUM 142 mmol/L (136-145); TOT PROT 6.1 g/dl (6.4-8.2)
[2018-09-05 09:18] LABS: POTASSIUM 3.6 mmol/L (3.5-5.1)
[2018-09-05] MEDS ORDERED: PATIENT'S OWN MEDICATION (NON-FORMULARY) (Linaclotide [Linzess] 145 MCG) PO SCH (10:00)
[2018-09-05] MEDS ORDERED: PATIENT'S OWN MEDICATION (NON-FORMULARY) (Mirabegron [Myrbetriq] 50 MG) PO SCH (10:00)
--- NOTE | 2018-09-05 10:52 | EKG ---
Test Reason : Blood Pressure : / mmHG Vent. Rate : 122 BPM Atrial Rate : 122 BPM P-R Int : 128 ms QRS Dur : 080 ms QT Int : 312 ms P-R-T Axes : 032 010 040 degrees QTc Int : 444 ms SINUS TACHYCARDIA OTHERWISE NORMAL ECG WHEN COMPARED WITH ECG OF 11-AUG-2018 09:46, NO SIGNIFICANT CHANGE WAS FOUND Confirmed by DENISHA SERRANO MD ([id number]) on 09/05/2018 10:52:22 AM Referred By: Confirmed By:DENISHA SERRANO MD
--- NOTE | 2018-09-05 10:58 | PN ---
Progress Note, Physician History of Present Illness: 52 year old female with past medical history of DM, COPD (s/p tracheostomy), asthma, anxiety, depression, chronic back pain, atrial fibrillation, CVA x2, HLD , HTN, migraines, Uterine CA s/p hyterectomy, SB mass s/p resection, Osteomyelitis of T6 and T7 s/p resection, presented with vomiting and abdominal pain for 3 days. Patient reported episodes of greenish vomitus initially, that became yellowish, nonbloody, accompanied by sharp diffuse abdominal pain. Patient reported nausea and unable to tolerate PO. With persistence of vomiting and abdominal pain patient came to the ED. Of note, patient has been on patterson catheter since 08/26/18 for a "weak bladder". She follows up with Dr. Jaramillo and it was scheduled to be removed on 09/17/18. Patient has also been bed bound , unable to walk since her back surgery in 2011. ER course was notable for: (1)UA: 2+RUBÉN, 2+Blood, +Nitrite, 3+leukocyte esterase, 731 WBC, 18 blood (2)Zosyn 4.5 g given (3)Morphine 10mg given - Current Medication List Current Medications: Active Medications Acetaminophen (Tylenol -) 650 mg PO Q6H PRN PRN Reason: FEVER Last Admin: 09/05/18 00:10 Dose: 650 mg Albuterol Sulfate (Ventolin Hfa Inhaler -) 2 puff IH Q4H PRN PRN Reason: SHORT OF BREATH/WHEEZING Alprazolam (Xanax -) 0.25 mg PO TID [facility] Last Admin: 09/05/18 07:25 Dose: Not Given Apixaban (Eliquis -) 5 mg PO BID [facility] Last Admin: 09/05/18 00:01 Dose: 5 mg Baclofen (Lioresal -) 20 mg PO TID [facility] Last Admin: 09/05/18 07:25 Dose: Not Given Diltiazem HCl (Cardizem Cd -) 240 mg PO BID [facility] Last Admin: 09/05/18 00:00 Dose: 240 mg Doxepin HCl (Sinequan -) 25 mg PO DAILY [facility] Gabapentin 300 mg/ Gabapentin (200 mg) 500 mg PO TID [facility] Last Admin: 09/05/18 07:25 Dose: Not Given Sodium Chloride (Normal Saline -) 1,000 mls @ 75 mls/hr IV ASDIR [facility] Last Admin: 09/04/18 21:22 Dose: 75 mls/hr Ertapenem 1 gm/ Sodium (Chloride) 50 mls @ 100 mls/hr IVPB DAILY [facility] Last Admin: 09/04/18 23:52 Dose: 100 mls/hr Insulin Aspart (Novolog Vial Sliding Scale -) 1 vial SQ ACHS [facility]; Protocol Last Admin: 09/05/18 07:25 Dose: 6 units Levothyroxine Sodium (Synthroid -) 50 mcg PO DAILY@0700 [facility] Last Admin: 09/05/18 07:26 Dose: Not Given Loratadine (Claritin -) 10 mg PO HS [facility] Last Admin: 09/04/18 23:52 Dose: 10 mg Montelukast Sodium (Singulair -) 10 mg PO HS [facility] Last Admin: 09/04/18 23:52 Dose: 10 mg Morphine Sulfate (Morphine Sulfate) 4 mg IVPUSH Q6H PRN PRN Reason: PAIN LEVEL 7 - 10 Last Admin: 09/04/18 21:28 Dose: 4 mg Non-Formulary Medication (Linaclotide [Linzess]) 145 mcg PO DAILY [facility] Non-Formulary Medication (Mirabegron [Myrbetriq]) 50 mg PO DAILY [facility] Non-Formulary Medication (Vortioxetine Hydrobromide [Trintellix]) 20 mg PO DAILY [facility] Ondansetron HCl (Zofran -) 8 mg PO TID [facility] Last Admin: 09/05/18 07:26 Dose: Not Given Pantoprazole Sodium (Protonix -) 40 mg PO DAILY [facility] Rosuvastatin Calcium (Crestor -) 10 mg PO HS [facility] Topiramate (Topamax -) 100 mg PO DAILY [facility] Venlafaxine HCl (Effexor Xr -) 75 mg PO DAILY [facility] Zolpidem Tartrate (Ambien -) 10 mg PO HS PRN PRN Reason: INSOMNIA Last Admin: 09/05/18 01:23 Dose: 10 mg - Objective Vital Signs: Vital Signs Temperature 99.3 F 09/04/18 22:22 Pulse Rate 120 H 09/05/18 06:31 Respiratory Rate 20 09/05/18 06:31 Blood Pressure 112/65 09/05/18 06:31 O2 Sat by Pulse Oximetry (%) 98 09/05/18 06:31 Cardiovascular: Yes: S1, S2 Respiratory: Yes: Diminished, Rhonchi, Other (TRACH COLLAR) Gastrointestinal: Yes: Normal Bowel Sounds, Soft Labs: CBC, BMP 09/05/18 07:35 09/05/18 07:35 INR, PTT INR 1.47 (0.83-1.09) H 09/04/18 14:54 Problem List - Problems (1) Abdominal pain Assessment/Plan: Maybe due UTI await ct results Code(s): R10.9 - UNSPECIFIED ABDOMINAL PAIN (2) Acute and chronic respiratory failure with hypoxia Assessment/Plan: -s/p tracheostomy -Continue Ventolin -abg -pulm -Singulair inh Code(s): J96.21 - ACUTE AND CHRONIC RESPIRATORY FAILURE WITH HYPOXIA (3) UTI (urinary tract infection) Assessment/Plan: -On patterson catheter since 08/26/18 for a "weak bladder" -Follows up with Dr. Jaramillo, scheduled to be removed on 09/17/18 -Previous cultures - +Klebsiella ESBL(2017), E.coli, E.faecalis, S.epidermidis, Proteus (2018) -Will start on Ertapenem 1gm -Urine cultures pending -Contact isolation for MRSA,ESBL -ID consulted. Code(s): N39.0 - URINARY TRACT INFECTION, SITE NOT SPECIFIED (4) Diabetes mellitus Assessment/Plan: -On Tresiba -Insulin sliding scale implemented -Monitor BGM ACHS Code(s): E11.9 - TYPE 2 DIABETES MELLITUS WITHOUT COMPLICATIONS Qualifiers: Diabetes mellitus type: type 2 (5) Paroxysmal atrial fibrillation Assessment/Plan: -continue Eliquis 5mg BID -continue Diltiazem 240mg BID Code(s): I48.0 - PAROXYSMAL ATRIAL FIBRILLATION (6) Back pain Assessment/Plan: Chronic -Neurontin 500mg q8 and Dilaudid 4mg q4h at home. -Patient reports can not tolerate PO. -On Morphine 4mg q6h for now Code(s): M54.9 - DORSALGIA, UNSPECIFIED (7) Lethargy Assessment/Plan: -Maybe from meds -abg and pulm consult Code(s): R53.83 - OTHER FATIGUE
[2018-09-05] MEDS: ERTAPENEM SODIUM 1 GM in SODIUM CHLORIDE 50 ML IVPB SCH (12:11)
[2018-09-05] MEDS: VENLAFAXINE HCL 75 MG E.R. CAPSULES (FP) PO SCH (12:13)
[2018-09-05] MEDS: DOXEPIN HCL 25 MG CAPSULE PO SCH (12:13)
[2018-09-05] MEDS: PANTOPRAZOLE 40 MG TABLET (FP) PO SCH (12:13)
[2018-09-05] MEDS: TOPIRAMATE 100 MG TABLET PO SCH (12:14)
[2018-09-05 12:35] LABS: ARTERIAL BLD GAS O2 SATURATION 89.1 % (90-98.9); ARTERIAL BLOOD GAS BASE EXCESS 2.6 meq/l (-2-2); ARTERIAL BLOOD GAS PCO2 46.9 mmHg (35-45); ARTERIAL BLOOD GAS PO2 58.7 mmHg (80-100); ARTERIAL BLOOD GAS pH 7.39 (7.35-7.45)
[2018-09-05 12:37] LABS: ALLENS TEST POSITIVE
[2018-09-05] MEDS ORDERED: ALBUTEROL SO4 2.5/IPRATROPIUM 0.5 INH SOL 3 ML VIAL.NEB. NEB ONE (12:45)
[2018-09-05] MEDS: ALBUTEROL SO4 2.5/IPRATROPIUM 0.5 INH SOL 3 ML VIAL.NEB. NEB SCH (12:55)
[2018-09-05] MEDS ORDERED: HEMOQUE TEST 1 EACH EACH ONE (13:12)
[2018-09-05 15:32] VITALS: BMI 31.4
[2018-09-05] MEDS ORDERED: GABAPENTIN 300 MG CAPSULE (FP) ONE ×2 (16:49→23:58)
[2018-09-05] MEDS: morphine SULFATE 4 MG/ML VIAL IVPUSH PRN (17:03)
[2018-09-05] MEDS: SODIUM CHLORIDE 1,000 ML IV SCH (18:50)
[2018-09-06] MEDS: INSULIN SLIDING SCALE (NOVOLOG) 1 VIAL SQ SCH ×5 (00:17→21:14)
[2018-09-06] MEDS: MONTELUKAST NA 10 MG TABLET PO SCH ×2 (00:18→21:04)
[2018-09-06] MEDS: APIXABAN 5 MG TABLET PO SCH ×3 (00:18→21:04)
[2018-09-06] MEDS: ONDANSETRON 4 MG TABLET PO SCH ×4 (00:18→21:03)
[2018-09-06] MEDS: ALPRAZolam 0.25 MG TABLET PO SCH ×4 (00:18→21:04)
[2018-09-06] MEDS: GABAPENTIN 300 MG, GABAPENTIN 200 MG PO SCH ×4 (00:19→21:03)
[2018-09-06] MEDS: BACLOFEN 10 MG TABLET (FP) PO SCH ×4 (00:19→21:04)
[2018-09-06] MEDS: LORATADINE 10 MG TABLET PO SCH ×2 (00:20→21:04)
[2018-09-06] MEDS: ROSUVASTATIN CA 10 MG TABLET (FP) PO SCH ×2 (00:20→21:04)
[2018-09-06] MEDS: SODIUM CHLORIDE 1,000 ML IV SCH ×3 (00:20→21:04)
[2018-09-06] MEDS: ALBUTEROL SO4 2.5/IPRATROPIUM 0.5 INH SOL 3 ML VIAL.NEB. NEB SCH ×5 (00:22→20:50)
[2018-09-06] MEDS: morphine SULFATE 4 MG/ML VIAL IVPUSH PRN ×3 (01:23→21:51)
[2018-09-06] MEDS: ACETAMINOPHEN 325 MG TABLET (FP) PO PRN ×2 (02:12→15:53)
[2018-09-06] MEDS: LOPERAMIDE HCL 2 MG CAPSULE PO ONE ×2 (03:45→03:52)
[2018-09-06] MEDS ORDERED: GABAPENTIN 300 MG CAPSULE (FP) ONE ×3 (06:38→20:18)
[2018-09-06] MEDS ORDERED: GABAPENTIN 100 MG CAPSULE (FP) ONE ×3 (06:38→20:18)
[2018-09-06] MEDS: LEVOTHYROXINE NA 50 MCG TABLET (FP) PO SCH (06:53)
--- NOTE | 2018-09-06 09:06 | PN ---
Progress Note, Physician Chief Complaint: AWAKE ALERT EVENTS AND NOTES REVIEWED DENIES CHEST PAIN +DIARRHEA - Current Medication List Current Medications: Active Medications Acetaminophen (Tylenol -) 650 mg PO Q6H PRN PRN Reason: FEVER Last Admin: 09/06/18 02:12 Dose: 650 mg Albuterol Sulfate (Ventolin Hfa Inhaler -) 2 puff IH Q4H PRN PRN Reason: SHORT OF BREATH/WHEEZING Albuterol/Ipratropium (Duoneb -) 1 amp NEB RQID [facility] Last Admin: 09/06/18 08:57 Dose: 1 amp Alprazolam (Xanax -) 0.25 mg PO TID [facility] Last Admin: 09/06/18 06:52 Dose: 0.25 mg Apixaban (Eliquis -) 5 mg PO BID [facility] Last Admin: 09/06/18 00:18 Dose: 5 mg Baclofen (Lioresal -) 20 mg PO TID [facility] Last Admin: 09/06/18 06:53 Dose: 20 mg Diltiazem HCl (Cardizem Cd -) 240 mg PO BID [facility] Last Admin: 09/06/18 00:20 Dose: 240 mg Doxepin HCl (Sinequan -) 25 mg PO DAILY [facility] Last Admin: 09/05/18 12:13 Dose: Not Given Gabapentin 300 mg/ Gabapentin (200 mg) 500 mg PO TID [facility] Last Admin: 09/06/18 06:53 Dose: 500 mg Sodium Chloride (Normal Saline -) 1,000 mls @ 75 mls/hr IV ASDIR [facility] Last Admin: 09/06/18 00:20 Dose: Not Given Ertapenem 1 gm/ Sodium (Chloride) 50 mls @ 100 mls/hr IVPB DAILY [facility] Last Admin: 09/05/18 12:11 Dose: Not Given Insulin Aspart (Novolog Vial Sliding Scale -) 1 vial SQ ACHS [facility]; Protocol Last Admin: 09/06/18 06:52 Dose: 8 units Levothyroxine Sodium (Synthroid -) 50 mcg PO DAILY@0700 [facility] Last Admin: 09/06/18 06:53 Dose: 50 mcg Loratadine (Claritin -) 10 mg PO [facility] Last Admin: 09/06/18 00:20 Dose: 10 mg Montelukast Sodium (Singulair -) 10 mg PO [facility] Last Admin: 09/06/18 00:18 Dose: 10 mg Morphine Sulfate (Morphine Sulfate) 4 mg IVPUSH Q6H PRN PRN Reason: PAIN LEVEL 7 - 10 Last Admin: 09/06/18 01:23 Dose: 4 mg Non-Formulary Medication (Linaclotide [Linzess]) 145 mcg PO DAILY [facility] Non-Formulary Medication (Mirabegron [Myrbetriq]) 50 mg PO DAILY [facility] Non-Formulary Medication (Vortioxetine Hydrobromide [Trintellix]) 20 mg PO DAILY [facility] Ondansetron HCl (Zofran -) 8 mg PO TID [facility] Last Admin: 09/06/18 06:53 Dose: 8 mg Pantoprazole Sodium (Protonix -) 40 mg PO DAILY [facility] Last Admin: 09/05/18 12:13 Dose: Not Given Rosuvastatin Calcium (Crestor -) 10 mg PO HS [facility] Last Admin: 09/06/18 00:20 Dose: 10 mg Topiramate (Topamax -) 100 mg PO DAILY [facility] Last Admin: 09/05/18 12:14 Dose: Not Given Venlafaxine HCl (Effexor Xr -) 75 mg PO DAILY [facility] Last Admin: 09/05/18 12:13 Dose: Not Given Zolpidem Tartrate (Ambien -) 10 mg PO HS PRN PRN Reason: INSOMNIA Last Admin: 09/05/18 01:23 Dose: 10 mg - Objective Vital Signs: Vital Signs Temperature 98.4 F 09/06/18 06:00 Pulse Rate 106 H 09/06/18 06:00 Respiratory Rate 20 09/06/18 06:00 Blood Pressure 119/49 L 09/06/18 06:00 O2 Sat by Pulse Oximetry (%) 100 09/05/18 23:10 Constitutional: Yes: Mild Distress Eyes: Yes: WNL HENT: Yes: Other (TRACHEOSTOMY) Cardiovascular: Yes: Regular Rate and Rhythm Respiratory: Yes: Other (TRACHCOLLAR WITH 02 SUPPORT) Gastrointestinal: Yes: WNL, Soft, Abdomen, Obese Genitourinary: Yes: Incontinence Musculoskeletal: Yes: Muscle Weakness Extremities: Yes: Other Wound/Incision: Yes: Dressing Dry and Intact Neurological: Yes: Pre-Existing Deficit ...Motor Strength: LLE, RLE Psychiatric: Yes: Other Labs: CBC, BMP 09/05/18 07:35 09/05/18 07:35 INR, PTT INR 1.47 (0.83-1.09) H 09/04/18 14:54 Problem List - Problems (1) Abdominal pain Code(s): R10.9 - UNSPECIFIED ABDOMINAL PAIN (2) Back pain Code(s): M54.9 - DORSALGIA, UNSPECIFIED (3) Chronic respiratory failure Code(s): J96.10 - CHRONIC RESPIRATORY FAILURE, UNSP W HYPOXIA OR HYPERCAPNIA (4) Diabetes Code(s): E11.9 - TYPE 2 DIABETES MELLITUS WITHOUT COMPLICATIONS (5) History of ESBL Klebsiella pneumoniae infection Code(s): Z86.19 - PERSONAL HISTORY OF OTHER INFECTIOUS AND PARASITIC DISEASES (6) Acute and chronic respiratory failure with hypoxia Code(s): J96.21 - ACUTE AND CHRONIC RESPIRATORY FAILURE WITH HYPOXIA (7) Acute exacerbation of COPD with asthma Code(s): J44.1 - CHRONIC OBSTRUCTIVE PULMONARY DISEASE W (ACUTE) EXACERBATION; J45.901 - UNSPECIFIED ASTHMA WITH (ACUTE) EXACERBATION (8) Chronic pain disorder Code(s): G89.4 - CHRONIC PAIN SYNDROME (9) Depression with anxiety Code(s): F41.8 - OTHER SPECIFIED ANXIETY DISORDERS Assessment/Plan IV ABX PER ID AWAIT BLOOD, URINE, SPUTUM CX PULM EVAL APPRECIATED CHECK LABS PAIN AND PSYCH MEDS RESTARTED STABLE TODAY CHECK STOOL FOR CDIFF DVT PROPHYLAXIS 02 SUPPORT
[2018-09-06] MEDS ORDERED: PT OWN MED DRAWER 7, Y5N ONE (09:48)
[2018-09-06] MEDS: VENLAFAXINE HCL 75 MG E.R. CAPSULES (FP) PO SCH (10:02)
[2018-09-06] MEDS: TOPIRAMATE 100 MG TABLET PO SCH (10:03)
[2018-09-06] MEDS: ERTAPENEM SODIUM 1 GM in SODIUM CHLORIDE 50 ML IVPB SCH (10:03)
[2018-09-06] MEDS: PANTOPRAZOLE 40 MG TABLET (FP) PO SCH (10:03)
[2018-09-06] MEDS: DOXEPIN HCL 25 MG CAPSULE PO SCH (10:03)
[2018-09-06] MEDS ORDERED: LOPERAMIDE HCL 2 MG CAPSULE PO ONE (10:45)
--- NOTE | 2018-09-06 11:20 | CON.PULM ---
Consult Consult Specialty:: PULM/CCM Referred by:: IRINEO Reason for Consultation:: Chronic Resp Failure - History of Present Illness Chief Complaint: Abdominal pain History of Present Illness: 52 F, well known to me from multiple previous admissions. Chronic Respiratory Failure, S/P Trach, not vent dependent, DM, COPD, asthma, anxiety, depression, chronic back pain, atrial fibrillation, CVA x2, HLD, HTN, migraines, Uterine CA s/p hyterectomy, small bowel resection, and osteomyelitis. Admitted via the ER due to vomiting and abdominal pain and "greenish" vomitus for 3 days. Reports breathing has been stable. Apparently has been on Prednisone 15mg OD and stopped abruptly about 4 days ago. CXR : poor inspiratory effort. minimal area of basilar atelectasis - History Source History Provided By: Patient Limitations to Obtaining History: No Limitations - Past Medical History Cardio/Vascular: Yes: AFIB (Paroxysmal), HTN, Hyperlipdemia Pulmonary: Yes: Asthma, COPD, O2 Dependent Gastrointestinal: Yes: GI Bleed Renal/: Yes: Cancer (Uterine), Other (STENTS/[place] in the past) ...: No Infectious Disease: Yes: C-Diff (june 2014), Other (Osteomyelitis of thoracic spine) Psych: Yes: Anxiety, Bipolar, Depression Musculoskeletal: Yes: Chronic low back pain Endocrine: Yes: Diabetes Mellitus Additional Medical History: Frequent c/o abdominal pain-extensive w/u in the past negative. Presumed adhesions from prior surgeries. - Past Surgical History Past Surgical History: Yes: Appendectomy, Colectomy (By description, right colon resection with anastamosis noted on colonoscopy 2013), Hysterectomy (ADE/ BSO), Stent - Alcohol/Substance Use Hx Alcohol Use: No - Smoking History Smoking history: Unknown if ever smoked Have you smoked in the past 12 months: No Aproximately how many cigarettes per day: 3 If you are a former smoker, when did you quit?: 2014 - Social History Usual Living Arrangement: With Significant Other 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) History of Recent Travel: No Home Medications - Allergies Allergies/Adverse Reactions: Allergies Allergy/AdvReac Type Severity Reaction Status Date / Time oxycodone [Oxycodone] Allergy Severe Nausea Verified 08/30/18 13:41 oxycodone HCl [From Percocet] Allergy Severe Nausea Verified 08/30/18 13:41 aspirin Allergy Mild Verified 08/30/18 13:41 blueberry [Blueberry] Allergy Mild Swelling Verified 08/30/18 13:41 fentanyl Allergy Mild Vomiting Verified 09/04/18 13:33 ibuprofen Allergy Swelling Verified 09/04/18 13:35 - Home Medications Home Medications: Ambulatory Orders Albuterol Sulfate Inhaler - [Ventolin HFA Inhaler -] 2 puff IH Q4H PRN #0 inhaler 11/29/16 Acetaminophen [Tylenol .Regular Strength -] 650 mg PO Q6H PRN #0 tablet Apixaban [Eliquis -] 5 mg PO BID tablet 04/29/17 Baclofen 20 mg PO TID 07/09/18 Diltiazem HCl [Diltiazem 24Hr Cd] 240 mg PO BID 07/09/18 Levocetirizine Dihydrochloride 5 mg PO HS 07/09/18 Levothyroxine [Synthroid -] 50 mcg PO DAILY 07/09/18 Rosuvastatin Calcium [Crestor] 10 mg PO DAILY 07/09/18 Venlafaxine HCl ER [Effexor Xr -] 75 mg PO DAILY 07/09/18 Famotidine 40 mg PO BID 08/07/18 Hydromorphone HCl 4 mg PO Q4H 08/07/18 Mirabegron [Myrbetriq] 50 mg PO DAILY 08/07/18 Montelukast Na [Singulair -] 10 mg PO HS 08/07/18 Alprazolam [Xanax] 0.25 mg PO TID #15 tablet MDD 3 08/15/18 Doxepin HCl [Sinequan -] 25 mg PO DAILY #30 capsule 08/15/18 Linaclotide [Linzess] 145 mcg PO DAILY #30 cap 08/15/18 Pantoprazole Sodium [Protonix -] 40 mg PO DAILY #30 tablet.ec 08/15/18 Topiramate [Topamax -] 100 mg PO DAILY #30 tablet 08/15/18 Vortioxetine Hydrobromide [Trintellix] 20 mg PO DAILY #30 tablet 08/15/18 Gabapentin [Neurontin -] 500 mg PO Q8H #21 capsule 08/30/18 Insulin (Novolog) [Novolog] 0 units SQ AC 08/30/18 Ondansetron [Zofran -] 8 mg PO TID 08/30/18 Zolpidem Tartrate 10 mg PO HS MDD 1 09/04/18 Family Disease History - Family Disease History Family Disease History: Diabetes: Mother (Alive: heart surgery), Heart Disease: Mother, [place]: Father (: leukemia), Other: Brother (2,Healthy), Sister (1, Healthy) Review of Systems - Review of Systems Constitutional: reports: Malaise. denies: Chills, Fever, Night Sweats, Unintentional Wgt. Loss Eyes: reports: No Symptoms HENT: reports: No Symptoms Neck: reports: No Symptoms Cardiovascular: denies: Chest Pain, Palpitations, Shortness of Breath Respiratory: reports: Cough. denies: Hemoptysis, Snoring, SOB, SOB on Exertion , Wheezing Gastrointestinal: reports: Abdominal Pain, Bloating, Indigestion, Nausea, Vomiting. denies: Rectal Bleeding, Vomiting Blood Genitourinary: reports: No Symptoms Breasts: reports: No Symptoms Reported Musculoskeletal: reports: Back Pain, Decreased ROM, Extremity Pain, Joint Pain, Joint Swelling, Muscle Pain, Muscle Cramps, Muscle Weakness Integumentary: reports: No Symptoms Neurological: reports: No Symptoms Endocrine: reports: No Symptoms Hematology/Lymphatic: reports: No Symptoms Physical Exam Vital Sings: Vital Signs Temperature 98.8 F 09/06/18 09:33 Pulse Rate 112 H 09/06/18 09:33 Respiratory Rate 20 09/06/18 09:33 Blood Pressure 120/80 09/06/18 09:33 O2 Sat by Pulse Oximetry (%) 100 09/05/18 23:10 Constitutional: Yes: No Distress, Anxious Eyes: Yes: Conjunctiva Clear, EOM Intact HENT: Yes: Atraumatic, Normocephalic Neck: Yes: Trachea Midline, Other (Trach intact ) Cardiovascular: Yes: Regular Rate and Rhythm Respiratory: Yes: Cough, Diminished, Other (Trach intact with Trach collar in place ). No: Accessory Muscle Use, Rales, SOB, SOB on Exertion, Stridor, Tachypnea, Wheezes ...Inspection: Yes: WNL ...Clubbing: No Gastrointestinal: Yes: Normal Bowel Sounds, Soft, Abdomen, Obese Musculoskeletal: Yes: Back Pain, Joint Stiffness, Muscle Weakness Extremities: Yes: Shortened Peripheral Pulses WNL: Yes Integumentary: Yes: WNL Neurological: Yes: Alert, Oriented Psychiatric: Yes: WNL, Alert, Oriented Labs: CBC, BMP 09/05/18 07:35 09/05/18 07:35 ABG Results ABG pH 7.39 (7.35-7.45) 09/05/18 12:19 ABG pCO2 at Pt Temp 46.9 mmHg (35-45) H 09/05/18 12:19 ABG pO2 at Pt Temp 58.7 mmHg (80-100) L D 09/05/18 12:19 ABG HCO3 27.4 meq/L (22-26) H 09/05/18 12:19 ABG O2 Sat (Measured) 89.1 % (90-98.9) L 09/05/18 12:19 ABG O2 Content 10.3 % vol (15-22) L 09/05/18 12:19 ABG Base Excess 2.6 meq/l (-2-2) H 09/05/18 12:19 Imaging - Results Chest X-ray: Report Reviewed, Image Reviewed Cat Scan: Report Reviewed, Image Reviewed Problem List - Problems (1) Chronic respiratory failure Code(s): J96.10 - CHRONIC RESPIRATORY FAILURE, UNSP W HYPOXIA OR HYPERCAPNIA (2) Abdominal pain Code(s): R10.9 - UNSPECIFIED ABDOMINAL PAIN (3) Back pain Code(s): M54.9 - DORSALGIA, UNSPECIFIED (4) Asthma Code(s): J45.909 - UNSPECIFIED ASTHMA, UNCOMPLICATED (5) Bipolar 2 disorder Code(s): F31.81 - BIPOLAR II DISORDER (6) COPD (chronic obstructive pulmonary disease) Code(s): J44.9 - CHRONIC OBSTRUCTIVE PULMONARY DISEASE, UNSPECIFIED Qualifiers: COPD type: unspecified COPD Qualified Code(s): J44.9 - Chronic obstructive pulmonary disease, unspecified (7) Depression with anxiety Code(s): F41.8 - OTHER SPECIFIED ANXIETY DISORDERS (8) Diabetes mellitus Code(s): E11.9 - TYPE 2 DIABETES MELLITUS WITHOUT COMPLICATIONS Qualifiers: Diabetes mellitus type: type 2 (9) GERD (gastroesophageal reflux disease) Code(s): K21.9 - GASTRO-ESOPHAGEAL REFLUX DISEASE WITHOUT ESOPHAGITIS (10) Gastritis Code(s): K29.70 - GASTRITIS, UNSPECIFIED, WITHOUT BLEEDING Qualifiers: Gastritis type: unspecified gastritis Chronicity: unspecified Gastritis bleeding: without bleeding Qualified Code(s): K29.70 - Gastritis, unspecified , without bleeding (11) HTN (hypertension) Code(s): I10 - ESSENTIAL (PRIMARY) HYPERTENSION Qualifiers: (12) Hyperlipidemia Code(s): E78.5 - HYPERLIPIDEMIA, UNSPECIFIED Qualifiers: (13) Mood disorder Code(s): F39 - UNSPECIFIED MOOD [AFFECTIVE] DISORDER (14) Neuropathy Code(s): G62.9 - POLYNEUROPATHY, UNSPECIFIED (15) Non compliance w medication regimen Code(s): Z91.14 - PATIENT'S OTHER NONCOMPLIANCE WITH MEDICATION REGIMEN (16) Paroxysmal atrial fibrillation Code(s): I48.0 - PAROXYSMAL ATRIAL FIBRILLATION (17) Total body pain Code(s): R52 - PAIN, UNSPECIFIED Assessment/Plan OK to maintain Duoneb for now Do not suspect PNA Mobilzation and PT if able GI evaluation Trach collar O2, at this time does not vent support Will follow Dr Castaneda
[2018-09-06] MEDS: predniSONE 5 MG TABLET (UD) PO SCH (13:45)
--- NOTE | 2018-09-06 14:25 | CON.ID ---
Consult Consult Specialty:: infectious disease Referred by:: daniel Reason for Consultation:: uti, fever - History of Present Illness Chief Complaint: lethargy, weakness, fatigue History of Present Illness: 52 yo female with copd, trach on home oxygen, wheelchairbound, brought to ED with poor appettie and fatigue. 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 as well she had a patterson placed as outpt with Dr Shravan Jaramillo on 08/26 for urinary frequency and was started on Macrobid she self d/callie this as well 3 days ago felt feverish at home and took tylenol currently feels better eating today was started on ertapenem colonized with MRSA nares and prior kelb esbl UTI - History Source History Provided By: Patient, Family Member, Medical Record Limitations to Obtaining History: Clinical Condition - Past Medical History Cardio/Vascular: Yes: AFIB (Paroxysmal), HTN, Hyperlipdemia Pulmonary: Yes: Asthma, COPD, O2 Dependent, Previously Intubated Gastrointestinal: Yes: GI Bleed Renal/: Yes: Cancer (Uterine), Other (STENTS/[place] in the past) ...: No Infectious Disease: Yes: C-Diff (june 2014), Other (Osteomyelitis of thoracic spine) Psych: Yes: Anxiety, Bipolar, Depression Musculoskeletal: Yes: Chronic low back pain, Other (multiple vertebral fractures ) Endocrine: Yes: Diabetes Mellitus, Hypothyroidism Additional Medical History: Frequent c/o abdominal pain-extensive w/u in the past negative. Presumed adhesions from prior surgeries. - Past Surgical History Past Surgical History: Yes: Appendectomy, Colectomy (By description, right colon resection with anastamosis noted on colonoscopy 2013), Hysterectomy (ADE/ BSO), Stent Additional Surgical History: left hip ORIF. thoracic spine surgery - Alcohol/Substance Use Hx Alcohol Use: No - Smoking History Smoking history: Unknown if ever smoked Have you smoked in the past 12 months: No Aproximately how many cigarettes per day: 3 If you are a former smoker, when did you quit?: 2014 - Social History Usual Living Arrangement: Alone 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) History of Recent Travel: No Home Medications - Allergies Allergies/Adverse Reactions: Allergies Allergy/AdvReac Type Severity Reaction Status Date / Time oxycodone [Oxycodone] Allergy Severe Nausea Verified 10/08/18 13:41 oxycodone HCl [From Percocet] Allergy Severe Nausea Verified 08/30/18 13:41 aspirin Allergy Mild Verified 08/30/18 13:41 blueberry [Blueberry] Allergy Mild Swelling Verified 08/30/18 13:41 fentanyl Allergy Mild Vomiting Verified 09/04/18 13:33 ibuprofen Allergy Swelling Verified 09/04/18 13:35 - Home Medications Home Medications: Ambulatory Orders Albuterol Sulfate Inhaler - [Ventolin HFA Inhaler -] 2 puff IH Q4H PRN #0 inhaler 11/29/16 Acetaminophen [Tylenol .Regular Strength -] 650 mg PO Q6H PRN #0 tablet Apixaban [Eliquis -] 5 mg PO BID tablet 04/29/17 Baclofen 20 mg PO TID 07/09/18 Diltiazem HCl [Diltiazem 24Hr Cd] 240 mg PO BID 07/09/18 Levocetirizine Dihydrochloride 5 mg PO HS 07/09/18 Levothyroxine [Synthroid -] 50 mcg PO DAILY 07/09/18 Rosuvastatin Calcium [Crestor] 10 mg PO DAILY 07/09/18 Venlafaxine HCl ER [Effexor Xr -] 75 mg PO DAILY 07/09/18 Famotidine 40 mg PO BID 08/07/18 Hydromorphone HCl 4 mg PO Q4H 08/07/18 Mirabegron [Myrbetriq] 50 mg PO DAILY 08/07/18 Montelukast Na [Singulair -] 10 mg PO HS 08/07/18 Alprazolam [Xanax] 0.25 mg PO TID #15 tablet MDD 3 08/15/18 Doxepin HCl [Sinequan -] 25 mg PO DAILY #30 capsule 08/15/18 Linaclotide [Linzess] 145 mcg PO DAILY #30 cap 08/15/18 Pantoprazole Sodium [Protonix -] 40 mg PO DAILY #30 tablet.ec 08/15/18 Topiramate [Topamax -] 100 mg PO DAILY #30 tablet 08/15/18 Vortioxetine Hydrobromide [Trintellix] 20 mg PO DAILY #30 tablet 08/15/18 Gabapentin [Neurontin -] 500 mg PO Q8H #21 capsule 08/30/18 Insulin (Novolog) [Novolog] 0 units SQ AC 08/30/18 Ondansetron [Zofran -] 8 mg PO TID 08/30/18 Zolpidem Tartrate 10 mg PO HS MDD 1 09/04/18 Family Disease History - Family Disease History Family Disease History: Diabetes: Mother (Alive: heart surgery), Heart Disease: Mother, [place]: Father (: leukemia), Other: Brother (2,Healthy), Sister (1, Healthy) Review of Systems - Review of Systems Constitutional: reports: Lethargy, Loss of Appetite, Malaise, Unintentional Wgt. Loss, Weakness Eyes: reports: No Symptoms HENT: denies: Difficult Swallowing Neck: reports: No Symptoms Cardiovascular: denies: Chest Pain, Edema Respiratory: denies: Cough Gastrointestinal: reports: Abdominal Pain Genitourinary: denies: Burning, Discharge Physical Exam Vital Signs: Vital Signs Temperature 98.8 F 09/06/18 09:33 Pulse Rate 112 H 09/06/18 09:33 Respiratory Rate 20 09/06/18 09:33 Blood Pressure 120/80 09/06/18 09:33 O2 Sat by Pulse Oximetry (%) 100 09/06/18 09:00 Constitutional: Yes: Well Nourished, No Distress, Other (cushinoid) HENT: Yes: Atraumatic, Normocephalic Neck: Yes: Other (tracheostomy) Cardiovascular: Yes: Regular Rate and Rhythm Respiratory: Yes: Regular, CTA Bilaterally Gastrointestinal: Yes: Normal Bowel Sounds, Soft, Other (well healed incision) ...Rectal Exam: Yes: Deferred Extremities: Yes: WNL Edema: No Psychiatric: Yes: Alert Labs: CBC, BMP 09/05/18 07:35 09/05/18 07:35 Microbiology 09/04/18 15:13 Urine - Urine Clean Catch Urine Culture - Preliminary Proteus Species Pending Organism Imaging - Results Chest X-ray: Report Reviewed, Image Reviewed Cat Scan: Report Reviewed Problem List - Problems (1) Fever Code(s): R50.9 - FEVER, UNSPECIFIED (2) UTI (urinary tract infection) Code(s): N39.0 - URINARY TRACT INFECTION, SITE NOT SPECIFIED (3) Diabetes Code(s): E11.9 - TYPE 2 DIABETES MELLITUS WITHOUT COMPLICATIONS (4) MRSA (methicillin resistant Staphylococcus aureus) colonization Code(s): Z22.322 - CARRIER OR SUSPECTED CARRIER OF METHICILLIN RESIS STAPH (5) History of ESBL Klebsiella pneumoniae infection Code(s): Z86.19 - PERSONAL HISTORY OF OTHER INFECTIOUS AND PARASITIC DISEASES Assessment/Plan cannot r/o UTI as source of fever ct scan otherwise unremarkable does complain of diarrhea since admission had patterson as oupt , replaced in ED_ more prone to UTI had macrobid as outpt blood cultures f/u urine cultures contact isolation vancomycin ertapanem
[2018-09-06] MEDS ORDERED: VANCOMYCIN 1 GRAM (PRE-DOCKED) 1,000 MG/250 ML BAG IVPB ONE (14:45)
[2018-09-06] MEDS ORDERED: INSULIN (NOVOLOG) ASPART 100 UNITS/ML 10ML VIAL ONE (19:09)
[2018-09-06] MEDS: ZOLPIDEM TARTRATE 5 MG TABLET PO PRN (21:19)
[2018-09-07] MEDS: INSULIN SLIDING SCALE (NOVOLOG) 1 VIAL SQ SCH ×6 (01:02→22:01)
[2018-09-07] MEDS ORDERED: GABAPENTIN 300 MG CAPSULE (FP) ONE ×3 (05:07→21:21)
[2018-09-07] MEDS ORDERED: GABAPENTIN 100 MG CAPSULE (FP) ONE ×3 (05:07→21:21)
[2018-09-07] MEDS: ALPRAZolam 0.25 MG TABLET PO SCH ×3 (05:40→21:32)
[2018-09-07] MEDS: GABAPENTIN 300 MG, GABAPENTIN 200 MG PO SCH ×3 (05:40→21:32)
[2018-09-07] MEDS: BACLOFEN 10 MG TABLET (FP) PO SCH ×3 (05:40→21:32)
[2018-09-07] MEDS: ONDANSETRON 4 MG TABLET PO SCH ×3 (05:40→21:32)
[2018-09-07] MEDS: LEVOTHYROXINE NA 50 MCG TABLET (FP) PO SCH (06:02)
[2018-09-07] MEDS: SODIUM CHLORIDE 1,000 ML IV SCH ×2 (06:11→21:59)
[2018-09-07] MEDS: ALBUTEROL SO4 2.5/IPRATROPIUM 0.5 INH SOL 3 ML VIAL.NEB. NEB SCH ×4 (08:00→20:45)
--- NOTE | 2018-09-07 08:42 | PN ---
Progress Note, Physician Chief Complaint: ASLEEP COMFORTABLE - Current Medication List Current Medications: Active Medications Acetaminophen (Tylenol -) 650 mg PO Q6H PRN PRN Reason: FEVER Last Admin: 09/06/18 15:53 Dose: 650 mg Albuterol Sulfate (Ventolin Hfa Inhaler -) 2 puff IH Q4H PRN PRN Reason: SHORT OF BREATH/WHEEZING Albuterol/Ipratropium (Duoneb -) 1 amp NEB RQID [facility] Last Admin: 09/07/18 08:00 Dose: 1 amp Alprazolam (Xanax -) 0.25 mg PO TID [facility] Last Admin: 09/07/18 05:40 Dose: 0.25 mg Apixaban (Eliquis -) 5 mg PO BID [facility] Last Admin: 09/06/18 21:04 Dose: 5 mg Baclofen (Lioresal -) 20 mg PO TID [facility] Last Admin: 09/07/18 05:40 Dose: 20 mg Diltiazem HCl (Cardizem Cd -) 240 mg PO BID [facility] Last Admin: 09/06/18 21:03 Dose: 240 mg Doxepin HCl (Sinequan -) 25 mg PO DAILY [facility] Last Admin: 09/06/18 10:03 Dose: 25 mg Gabapentin 300 mg/ Gabapentin (200 mg) 500 mg PO TID [facility] Last Admin: 09/07/18 05:40 Dose: 500 mg Sodium Chloride (Normal Saline -) 1,000 mls @ 75 mls/hr IV ASDIR [facility] Last Admin: 09/07/18 06:11 Dose: 75 mls/hr Ertapenem 1 gm/ Sodium (Chloride) 50 mls @ 100 mls/hr IVPB DAILY [facility] Last Admin: 09/06/18 10:03 Dose: 100 mls/hr Insulin Aspart (Novolog Vial Sliding Scale -) 1 vial SQ Q4HPO [facility]; Protocol Last Admin: 09/07/18 05:46 Dose: 4 units Levothyroxine Sodium (Synthroid -) 50 mcg PO DAILY@0700 [facility] Last Admin: 09/07/18 06:02 Dose: 50 mcg Loratadine (Claritin -) 10 mg PO [facility] Last Admin: 09/06/18 21:04 Dose: 10 mg Montelukast Sodium (Singulair -) 10 mg PO [facility] Last Admin: 09/06/18 21:04 Dose: 10 mg Morphine Sulfate (Morphine Sulfate) 4 mg IVPUSH Q6H PRN PRN Reason: PAIN LEVEL 7 - 10 Last Admin: 09/06/18 21:51 Dose: 4 mg Non-Formulary Medication (Linaclotide [Linzess]) 145 mcg PO DAILY [facility] Non-Formulary Medication (Mirabegron [Myrbetriq]) 50 mg PO DAILY [facility] Non-Formulary Medication (Vortioxetine Hydrobromide [Trintellix]) 20 mg PO DAILY [facility] Ondansetron HCl (Zofran -) 8 mg PO TID [facility] Last Admin: 09/07/18 05:40 Dose: 8 mg Pantoprazole Sodium (Protonix -) 40 mg PO DAILY [facility] Last Admin: 09/06/18 10:03 Dose: 40 mg Prednisone (Deltasone -) 5 mg PO DAILY [facility] Last Admin: 09/06/18 13:45 Dose: 5 mg Rosuvastatin Calcium (Crestor -) 10 mg PO HS [facility] Last Admin: 09/06/18 21:04 Dose: 10 mg Topiramate (Topamax -) 100 mg PO DAILY [facility] Last Admin: 09/06/18 10:03 Dose: 100 mg Venlafaxine HCl (Effexor Xr -) 75 mg PO DAILY@0800 [facility] Zolpidem Tartrate (Ambien -) 10 mg PO HS PRN PRN Reason: INSOMNIA Last Admin: 09/06/18 21:19 Dose: 10 mg - Objective Vital Signs: Vital Signs Temperature 97.6 F 09/07/18 06:17 Pulse Rate 100 H 09/07/18 06:17 Respiratory Rate 20 09/07/18 06:17 Blood Pressure 108/64 09/07/18 06:17 O2 Sat by Pulse Oximetry (%) 98 09/06/18 21:00 Constitutional: Yes: Mild Distress Eyes: Yes: WNL HENT: Yes: WNL Neck: Yes: Other Cardiovascular: Yes: WNL Respiratory: Yes: Other (TRACH COLLAR WITH 02 SUPPORT) Gastrointestinal: Yes: Soft, Abdomen, Obese Genitourinary: Yes: Titus Present Musculoskeletal: Yes: Muscle Weakness Extremities: Yes: Other Edema: Yes Integumentary: Yes: Other Wound/Incision: Yes: Dressing Dry and Intact Neurological: Yes: Pre-Existing Deficit ...Motor Strength: LLE, RLE Psychiatric: Yes: Other Labs: CBC, BMP 09/05/18 07:35 09/05/18 07:35 INR, PTT INR 1.47 (0.83-1.09) H 09/04/18 14:54 Problem List - Problems (1) Abdominal pain Code(s): R10.9 - UNSPECIFIED ABDOMINAL PAIN (2) Back pain Code(s): M54.9 - DORSALGIA, UNSPECIFIED (3) Chronic respiratory failure Code(s): J96.10 - CHRONIC RESPIRATORY FAILURE, UNSP W HYPOXIA OR HYPERCAPNIA (4) Diabetes Code(s): E11.9 - TYPE 2 DIABETES MELLITUS WITHOUT COMPLICATIONS (5) History of ESBL Klebsiella pneumoniae infection Code(s): Z86.19 - PERSONAL HISTORY OF OTHER INFECTIOUS AND PARASITIC DISEASES (6) Acute and chronic respiratory failure with hypoxia Code(s): J96.21 - ACUTE AND CHRONIC RESPIRATORY FAILURE WITH HYPOXIA (7) Acute exacerbation of COPD with asthma Code(s): J44.1 - CHRONIC OBSTRUCTIVE PULMONARY DISEASE W (ACUTE) EXACERBATION; J45.901 - UNSPECIFIED ASTHMA WITH (ACUTE) EXACERBATION (8) Chronic pain disorder Code(s): G89.4 - CHRONIC PAIN SYNDROME (9) Depression with anxiety Code(s): F41.8 - OTHER SPECIFIED ANXIETY DISORDERS Assessment/Plan IV ABX PER ID AWAIT BLOOD, URINE, SPUTUM CX PULM EVAL APPRECIATED CHECK LABS PAIN AND PSYCH MEDS RESTARTED STABLE TODAY CHECK STOOL FOR CDIFF DVT PROPHYLAXIS 02 SUPPORT
--- NOTE | 2018-09-07 10:01 | PN ---
Progress Note (short form) - Note Progress Note: Resting in NAD on Trach collar. No CP or SOB. Improving abdominal symptoms. Intake & Output 09/04/18 09/05/18 09/06/18 09/07/18 23:59 23:59 23:59 23:59 Intake Total 300 970 900 Output Total 363 722 1961 600 Balance -190 -250 -1730 300 Weight 160 lb 155 lb 7 oz Last Vital Signs Temp Pulse Resp BP Pulse Ox 97.6 F 100 H 20 108/64 98 09/07/18 06:17 09/07/18 06:17 09/07/18 06:17 09/07/18 06:17 09/06/18 21:00 Active Medications Acetaminophen (Tylenol -) 650 mg PO Q6H PRN PRN Reason: FEVER Last Admin: 09/06/18 15:53 Dose: 650 mg Albuterol Sulfate (Ventolin Hfa Inhaler -) 2 puff IH Q4H PRN PRN Reason: SHORT OF BREATH/WHEEZING Albuterol/Ipratropium (Duoneb -) 1 amp NEB RQID [facility] Last Admin: 09/07/18 08:00 Dose: 1 amp Alprazolam (Xanax -) 0.25 mg PO TID [facility] Last Admin: 09/07/18 05:40 Dose: 0.25 mg Apixaban (Eliquis -) 5 mg PO BID [facility] Last Admin: 09/06/18 21:04 Dose: 5 mg Baclofen (Lioresal -) 20 mg PO TID [facility] Last Admin: 09/07/18 05:40 Dose: 20 mg Diltiazem HCl (Cardizem Cd -) 240 mg PO BID [facility] Last Admin: 09/06/18 21:03 Dose: 240 mg Doxepin HCl (Sinequan -) 25 mg PO DAILY [facility] Last Admin: 09/06/18 10:03 Dose: 25 mg Gabapentin 300 mg/ Gabapentin (200 mg) 500 mg PO TID [facility] Last Admin: 09/07/18 05:40 Dose: 500 mg Sodium Chloride (Normal Saline -) 1,000 mls @ 75 mls/hr IV ASDIR [facility] Last Admin: 09/07/18 06:11 Dose: 75 mls/hr Ertapenem 1 gm/ Sodium (Chloride) 50 mls @ 100 mls/hr IVPB DAILY [facility] Last Admin: 09/06/18 10:03 Dose: 100 mls/hr Insulin Aspart (Novolog Vial Sliding Scale -) 1 vial SQ Q4HPO [facility]; Protocol Last Admin: 09/07/18 05:46 Dose: 4 units Levothyroxine Sodium (Synthroid -) 50 mcg PO DAILY@0700 [facility] Last Admin: 09/07/18 06:02 Dose: 50 mcg Loratadine (Claritin -) 10 mg PO HS [facility] Last Admin: 09/06/18 21:04 Dose: 10 mg Montelukast Sodium (Singulair -) 10 mg PO HS [facility] Last Admin: 09/06/18 21:04 Dose: 10 mg Morphine Sulfate (Morphine Sulfate) 4 mg IVPUSH Q6H PRN PRN Reason: PAIN LEVEL 7 - 10 Last Admin: 09/06/18 21:51 Dose: 4 mg Non-Formulary Medication (Linaclotide [Linzess]) 145 mcg PO DAILY [facility] Non-Formulary Medication (Mirabegron [Myrbetriq]) 50 mg PO DAILY [facility] Non-Formulary Medication (Vortioxetine Hydrobromide [Trintellix]) 20 mg PO DAILY [facility] Ondansetron HCl (Zofran -) 8 mg PO TID [facility] Last Admin: 09/07/18 05:40 Dose: 8 mg Pantoprazole Sodium (Protonix -) 40 mg PO DAILY [facility] Last Admin: 09/06/18 10:03 Dose: 40 mg Prednisone (Deltasone -) 5 mg PO DAILY [facility] Last Admin: 09/06/18 13:45 Dose: 5 mg Rosuvastatin Calcium (Crestor -) 10 mg PO HS [facility] Last Admin: 09/06/18 21:04 Dose: 10 mg Topiramate (Topamax -) 100 mg PO DAILY [facility] Last Admin: 09/06/18 10:03 Dose: 100 mg Venlafaxine HCl (Effexor Xr -) 75 mg PO DAILY@0800 [facility] Zolpidem Tartrate (Ambien -) 10 mg PO HS PRN PRN Reason: INSOMNIA Last Admin: 09/06/18 21:19 Dose: 10 mg Constitutional: Yes: No Distress Eyes: Yes: Conjunctiva Clear, EOM Intact HENT: Yes: Atraumatic, Normocephalic Neck: Yes: Trachea Midline, Other (Trach intact) Cardiovascular: Yes: Regular Rate and Rhythm Respiratory: Yes: Cough, Diminished, Other (Trach intact with Trach collar in place ). No: Accessory Muscle Use, Rales, SOB, SOB on Exertion, Stridor, Tachypnea, Wheezes ...Inspection: Yes: WNL ...Clubbing: No Gastrointestinal: Yes: Normal Bowel Sounds, Soft, Abdomen, Obese Musculoskeletal: Yes: Back Pain, Joint Stiffness, Muscle Weakness Extremities: Yes: Shortened Peripheral Pulses WNL: Yes Integumentary: Yes: WNL Neurological: Yes: Alert, Oriented Psychiatric: Yes: WNL, Alert, Oriented Labs: Laboratory Results - last 24 hr 09/06/18 09/06/18 09/06/18 12:03 16:55 21:11 POC Glucometer 199 398 339 09/07/18 09/07/18 00:56 05:45 POC Glucometer 269 218 Problem List - Problems (1) Chronic respiratory failure Code(s): J96.10 - CHRONIC RESPIRATORY FAILURE, UNSP W HYPOXIA OR HYPERCAPNIA (2) Abdominal pain Code(s): R10.9 - UNSPECIFIED ABDOMINAL PAIN (3) Back pain Code(s): M54.9 - DORSALGIA, UNSPECIFIED (4) Asthma Code(s): J45.909 - UNSPECIFIED ASTHMA, UNCOMPLICATED (5) Bipolar 2 disorder Code(s): F31.81 - BIPOLAR II DISORDER (6) COPD (chronic obstructive pulmonary disease) Code(s): J44.9 - CHRONIC OBSTRUCTIVE PULMONARY DISEASE, UNSPECIFIED Qualifiers: COPD type: unspecified COPD Qualified Code(s): J44.9 - Chronic obstructive pulmonary disease, unspecified (7) Depression with anxiety Code(s): F41.8 - OTHER SPECIFIED ANXIETY DISORDERS (8) Diabetes mellitus Code(s): E11.9 - TYPE 2 DIABETES MELLITUS WITHOUT COMPLICATIONS Qualifiers: Diabetes mellitus type: type 2 (9) GERD (gastroesophageal reflux disease) Code(s): K21.9 - GASTRO-ESOPHAGEAL REFLUX DISEASE WITHOUT ESOPHAGITIS (10) Gastritis Code(s): K29.70 - GASTRITIS, UNSPECIFIED, WITHOUT BLEEDING Qualifiers: Gastritis type: unspecified gastritis Chronicity: unspecified Gastritis bleeding: without bleeding Qualified Code(s): K29.70 - Gastritis, unspecified , without bleeding (11) HTN (hypertension) Code(s): I10 - ESSENTIAL (PRIMARY) HYPERTENSION Qualifiers: (12) Hyperlipidemia Code(s): E78.5 - HYPERLIPIDEMIA, UNSPECIFIED Qualifiers: (13) Mood disorder Code(s): F39 - UNSPECIFIED MOOD [AFFECTIVE] DISORDER (14) Neuropathy Code(s): G62.9 - POLYNEUROPATHY, UNSPECIFIED (15) Non compliance w medication regimen Code(s): Z91.14 - PATIENT'S OTHER NONCOMPLIANCE WITH MEDICATION REGIMEN (16) Paroxysmal atrial fibrillation Code(s): I48.0 - PAROXYSMAL ATRIAL FIBRILLATION (17) Total body pain Code(s): R52 - PAIN, UNSPECIFIED Assessment/Plan OK to maintain Duoneb for now Do not suspect PNA Mobilzation and PT if able Prednsione 5mg OD Trach collar O2, at this time does not vent support No Pulmonary contraindication for D/C planning Dr Castaneda Problem List - Problems (1) Chronic respiratory failure Code(s): J96.10 - CHRONIC RESPIRATORY FAILURE, UNSP W HYPOXIA OR HYPERCAPNIA (2) Abdominal pain Code(s): R10.9 - UNSPECIFIED ABDOMINAL PAIN (3) Back pain Code(s): M54.9 - DORSALGIA, UNSPECIFIED (4) Asthma Code(s): J45.909 - UNSPECIFIED ASTHMA, UNCOMPLICATED (5) Bipolar 2 disorder Code(s): F31.81 - BIPOLAR II DISORDER (6) COPD (chronic obstructive pulmonary disease) Code(s): J44.9 - CHRONIC OBSTRUCTIVE PULMONARY DISEASE, UNSPECIFIED Qualifiers: COPD type: unspecified COPD Qualified Code(s): J44.9 - Chronic obstructive pulmonary disease, unspecified (7) Depression with anxiety Code(s): F41.8 - OTHER SPECIFIED ANXIETY DISORDERS (8) Diabetes mellitus Code(s): E11.9 - TYPE 2 DIABETES MELLITUS WITHOUT COMPLICATIONS Qualifiers: Diabetes mellitus type: type 2 (9) GERD (gastroesophageal reflux disease) Code(s): K21.9 - GASTRO-ESOPHAGEAL REFLUX DISEASE WITHOUT ESOPHAGITIS (10) Gastritis Code(s): K29.70 - GASTRITIS, UNSPECIFIED, WITHOUT BLEEDING Qualifiers: Gastritis type: unspecified gastritis Chronicity: unspecified Gastritis bleeding: without bleeding Qualified Code(s): K29.70 - Gastritis, unspecified , without bleeding (11) HTN (hypertension) Code(s): I10 - ESSENTIAL (PRIMARY) HYPERTENSION Qualifiers: (12) Hyperlipidemia Code(s): E78.5 - HYPERLIPIDEMIA, UNSPECIFIED Qualifiers: (13) Mood disorder Code(s): F39 - UNSPECIFIED MOOD [AFFECTIVE] DISORDER (14) Neuropathy Code(s): G62.9 - POLYNEUROPATHY, UNSPECIFIED (15) Non compliance w medication regimen Code(s): Z91.14 - PATIENT'S OTHER NONCOMPLIANCE WITH MEDICATION REGIMEN (16) Paroxysmal atrial fibrillation Code(s): I48.0 - PAROXYSMAL ATRIAL FIBRILLATION (17) Total body pain Code(s): R52 - PAIN, UNSPECIFIED
[2018-09-07] MEDS ORDERED: PT OWN MED DRAWER 7, Y5N ONE ×3 (10:33→23:36)
[2018-09-07] MEDS ORDERED: INSULIN (NOVOLOG) ASPART 100 UNITS/ML 10ML VIAL ONE ×2 (10:34→18:07)
[2018-09-07] MEDS: TOPIRAMATE 100 MG TABLET PO SCH (10:47)
[2018-09-07] MEDS: DOXEPIN HCL 25 MG CAPSULE PO SCH (10:47)
[2018-09-07] MEDS: PANTOPRAZOLE 40 MG TABLET (FP) PO SCH (10:48)
[2018-09-07] MEDS: VENLAFAXINE HCL 75 MG E.R. CAPSULES (FP) PO SCH (10:49)
[2018-09-07] MEDS: APIXABAN 5 MG TABLET PO SCH ×2 (10:49→21:32)
[2018-09-07] MEDS: predniSONE 5 MG TABLET (UD) PO SCH (10:50)
[2018-09-07] MEDS: ERTAPENEM SODIUM 1 GM in SODIUM CHLORIDE 50 ML IVPB SCH (10:55)
--- NOTE | 2018-09-07 16:13 | PN ---
Progress Note (short form) - Note Progress Note: refused blood cultures yesterday no fevers continued Low back pain (chronic) Vital Signs Period Temp Pulse Resp BP Sys/Dan Pulse Ox Last 24 Hr 97.6 F-98.7 F 82-110 16-20 108-128/61-85 98-100 cor-rrr lungs decreased bs at bases abd soft, nt ext no edema CBC, BMP 09/05/18 07:35 09/05/18 07:35 Microbiology 09/04/18 15:13 Urine - Urine Clean Catch Urine Culture - Preliminary Proteus Species Pending Organism a/p fever UTI patterson await urine culture results continue ertapenem Problem List - Problems (1) Fever Code(s): R50.9 - FEVER, UNSPECIFIED (2) UTI (urinary tract infection) Code(s): N39.0 - URINARY TRACT INFECTION, SITE NOT SPECIFIED (3) Diabetes Code(s): E11.9 - TYPE 2 DIABETES MELLITUS WITHOUT COMPLICATIONS (4) MRSA (methicillin resistant Staphylococcus aureus) colonization Code(s): Z22.322 - CARRIER OR SUSPECTED CARRIER OF METHICILLIN RESIS STAPH (5) History of ESBL Klebsiella pneumoniae infection Code(s): Z86.19 - PERSONAL HISTORY OF OTHER INFECTIOUS AND PARASITIC DISEASES
[2018-09-07] MEDS: [UNRECOGNIZED DRUG - OTHER] PO SCH (16:52)
[2018-09-07] MEDS: MONTELUKAST NA 10 MG TABLET PO SCH (21:32)
[2018-09-07] MEDS: LORATADINE 10 MG TABLET PO SCH (21:32)
[2018-09-07] MEDS: ROSUVASTATIN CA 10 MG TABLET (FP) PO SCH (21:32)
[2018-09-08] MEDS: ACETAMINOPHEN 325 MG TABLET (FP) PO PRN ×2 (00:08→20:30)
--- NOTE | 2018-09-08 00:22 | CONSULT ---
Consult Consult Specialty:: endocrine Referred by:: yolanda sanchez md. Reason for Consultation:: diabetes mellitus type 2 - History of Present Illness Chief Complaint: high sugars poor appetite History of Present Illness: 52 year old female with past medical history of DM, COPD (s/p tracheostomy), asthma, anxiety, depression, chronic back pain, atrial fibrillation, CVA x2, HLD , HTN, migraines, Uterine CA s/p hyterectomy, SB mass s/p resection, Osteomyelitis of T6 and T7 s/p resection, presented with vomiting and abdominald nausea ,weaknes,cough wheezing and congestion with sputum production, requiring iv antibiotics and respiratory support, since then has had difficulty control of sugars despite poor appetite. - History Source History Provided By: Patient - Past Medical History Cardio/Vascular: Yes: AFIB (Paroxysmal), HTN, Hyperlipdemia Pulmonary: Yes: Asthma, COPD, O2 Dependent, Previously Intubated Gastrointestinal: Yes: GI Bleed Renal/: Yes: Cancer (Uterine), Other ([place] in the past) ...: No Infectious Disease: Yes: C-Diff (june 2014), Other (Osteomyelitis of thoracic spine) Psych: Yes: Anxiety, Bipolar, Depression Musculoskeletal: Yes: Chronic low back pain, Other (multiple vertebral fractures ) Endocrine: Yes: Diabetes Mellitus, Hypothyroidism Additional Medical History: Frequent c/o abdominal pain-extensive w/u in the past negative. Presumed adhesions from prior surgeries. - Past Surgical History Past Surgical History: Yes: Appendectomy, Colectomy (By description, right colon resection with anastamosis noted on colonoscopy 2013), Hysterectomy (ADE/ BSO), Stent Additional Surgical History: left hip ORIF. thoracic spine surgery - Alcohol/Substance Use Hx Alcohol Use: No - Smoking History Smoking history: Unknown if ever smoked Have you smoked in the past 12 months: No Aproximately how many cigarettes per day: 3 If you are a former smoker, when did you quit?: 2014 - Social History Usual Living Arrangement: Alone 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) History of Recent Travel: No Home Medications - Allergies Allergies/Adverse Reactions: Allergies Allergy/AdvReac Type Severity Reaction Status Date / Time oxycodone [Oxycodone] Allergy Severe Nausea Verified 08/30/18 13:41 oxycodone HCl [From Percocet] Allergy Severe Nausea Verified 08/30/18 13:41 aspirin Allergy Mild Verified 08/30/18 13:41 blueberry [Blueberry] Allergy Mild Swelling Verified 08/30/18 13:41 fentanyl Allergy Mild Vomiting Verified 09/04/18 13:33 ibuprofen Allergy Swelling Verified 09/04/18 13:35 - Home Medications Home Medications: Ambulatory Orders Albuterol Sulfate Inhaler - [Ventolin HFA Inhaler -] 2 puff IH Q4H PRN #0 inhaler 11/29/16 Acetaminophen [Tylenol .Regular Strength -] 650 mg PO Q6H PRN #0 tablet Apixaban [Eliquis -] 5 mg PO BID tablet 04/29/17 Baclofen 20 mg PO TID 07/09/18 Diltiazem HCl [Diltiazem 24Hr Cd] 240 mg PO BID 07/09/18 Levocetirizine Dihydrochloride 5 mg PO HS 07/09/18 Levothyroxine [Synthroid -] 50 mcg PO DAILY 07/09/18 Rosuvastatin Calcium [Crestor] 10 mg PO DAILY 07/09/18 Venlafaxine HCl ER [Effexor Xr -] 75 mg PO DAILY 07/09/18 Famotidine 40 mg PO BID 08/07/18 Hydromorphone HCl 4 mg PO Q4H 08/07/18 Mirabegron [Myrbetriq] 50 mg PO DAILY 08/07/18 Montelukast Na [Singulair -] 10 mg PO HS 08/07/18 Alprazolam [Xanax] 0.25 mg PO TID #15 tablet MDD 3 08/15/18 Doxepin HCl [Sinequan -] 25 mg PO DAILY #30 capsule 08/15/18 Linaclotide [Linzess] 145 mcg PO DAILY #30 cap 08/15/18 Pantoprazole Sodium [Protonix -] 40 mg PO DAILY #30 tablet.ec 08/15/18 Topiramate [Topamax -] 100 mg PO DAILY #30 tablet 08/15/18 Vortioxetine Hydrobromide [Trintellix] 20 mg PO DAILY #30 tablet 08/15/18 Gabapentin [Neurontin -] 500 mg PO Q8H #21 capsule 08/30/18 Insulin (Novolog) [Novolog] 0 units SQ AC 08/30/18 Ondansetron [Zofran -] 8 mg PO TID 08/30/18 Zolpidem Tartrate 10 mg PO HS MDD 1 09/04/18 Family Disease History - Family Disease History Family Disease History: Diabetes: Mother (Alive: heart surgery), Heart Disease: Mother, CA: Father (: leukemia), Other: Brother (2,Healthy), Sister (1, Healthy) Review of Systems - Review of Systems Constitutional: reports: Loss of Appetite, Weakness Eyes: reports: Blurred Vision HENT: reports: Difficult Swallowing Neck: reports: Decreased ROM Cardiovascular: reports: Shortness of Breath Respiratory: reports: Cough, Exercise Intolerance, SOB, SOB on Exertion, Wheezing Gastrointestinal: reports: Bloating, Nausea Genitourinary: reports: Incontinence Breasts: reports: No Symptoms Reported Musculoskeletal: reports: Extremity Pain, Muscle Pain, Muscle Cramps, Muscle Weakness Integumentary: reports: Pallor Neurological: reports: Numbness, Unsteady Gait, Weakness Endocrine: reports: Unexplained Weight Gain Physical Exam Vital Signs: Vital Signs Temperature 98.3 F 09/07/18 22:16 Pulse Rate 99 H 09/07/18 22:16 Respiratory Rate 16 09/07/18 22:16 Blood Pressure 134/74 09/07/18 22:16 O2 Sat by Pulse Oximetry (%) 100 09/07/18 09:00 Constitutional: Yes: Anxious Eyes: Yes: EOM Intact HENT: Yes: Normocephalic Neck: Yes: Trachea Midline Cardiovascular: Yes: Tachycardia, Murmur Respiratory: Yes: On BiPap, SOB on Exertion, Tachypnea, Wheezes Gastrointestinal: Yes: Normal Bowel Sounds ...Rectal Exam: Yes: Deferred Renal/: Yes: WNL Musculoskeletal: Yes: Muscle Weakness Edema: No Peripheral Pulses WNL: Yes Neurological: Yes: Alert, Oriented, Loss of Sensation, Pre-Existing Deficit, Weakness Labs: CBC, BMP 09/05/18 07:35 09/05/18 07:35 Problem List - Problems (1) Abdominal pain Code(s): R10.9 - UNSPECIFIED ABDOMINAL PAIN (2) Back pain Code(s): M54.9 - DORSALGIA, UNSPECIFIED (3) Chronic respiratory failure Code(s): J96.10 - CHRONIC RESPIRATORY FAILURE, UNSP W HYPOXIA OR HYPERCAPNIA (4) Diabetes Code(s): E11.9 - TYPE 2 DIABETES MELLITUS WITHOUT COMPLICATIONS (5) History of ESBL Klebsiella pneumoniae infection Code(s): Z86.19 - PERSONAL HISTORY OF OTHER INFECTIOUS AND PARASITIC DISEASES (6) Lethargy Code(s): R53.83 - OTHER FATIGUE (7) MRSA (methicillin resistant Staphylococcus aureus) colonization Code(s): Z22.322 - CARRIER OR SUSPECTED CARRIER OF METHICILLIN RESIS STAPH Assessment/Plan Current Active Problems Abdominal pain (Acute) Back pain (Acute) Chronic respiratory failure (Acute) Diabetes (Acute) Fever (Acute) History of ESBL Klebsiella pneumoniae infection (Acute) Lethargy (Acute) MRSA (methicillin resistant Staphylococcus aureus) colonization (Acute) UTI (urinary tract infection) (Acute) Laboratory Results - last 24 hr 09/07/18 09/07/18 09/07/18 00:56 05:45 10:04 POC Glucometer 269 218 249 09/07/18 09/07/18 09/07/18 14:03 16:57 21:34 POC Glucometer 157 203 360 Laboratory Tests 09/05/18 09/05/18 09/05/18 07:35 07:35 13:16 WBC 9.7 RBC 3.74 Hgb 8.6 L Hct 28.0 L MCH 22.9 L RDW 20.1 H Sodium 142 Potassium 3.6 Chloride 107 Carbon Dioxide 24 Anion Gap 11 BUN 8 Creatinine 0.7 POC Glucometer [phone] Random Glucose 226 H 09/05/18 17:20 WBC RBC Hgb Hct MCH RDW Sodium Potassium Chloride Carbon Dioxide Anion Gap BUN Creatinine POC Glucometer 213 Random Glucose plan; bgm qid novolog insulin doses levemir dose 10 units @ am synthroid 50mcg daily ck tsh free t4
[2018-09-08] MEDS ORDERED: traMADol HCL 50 MG TABLET PO ONE (04:15)
[2018-09-08] MEDS ORDERED: GABAPENTIN 100 MG CAPSULE (FP) ONE ×3 (06:02→21:49)
[2018-09-08] MEDS ORDERED: GABAPENTIN 300 MG CAPSULE (FP) ONE ×3 (06:02→21:50)
[2018-09-08] MEDS: INSULIN SLIDING SCALE (NOVOLOG) 1 VIAL SQ SCH ×4 (06:12→21:58)
[2018-09-08] MEDS: INSULIN (LEVEMIR) 100 UNITS/ML UNITS SQ SCH (06:12)
[2018-09-08] MEDS: LEVOTHYROXINE NA 50 MCG TABLET (FP) PO SCH (06:13)
[2018-09-08] MEDS: ONDANSETRON 4 MG TABLET PO SCH ×3 (06:13→21:53)
[2018-09-08] MEDS: BACLOFEN 10 MG TABLET (FP) PO SCH ×3 (06:13→21:52)
[2018-09-08] MEDS: GABAPENTIN 300 MG, GABAPENTIN 200 MG PO SCH ×3 (06:14→21:52)
[2018-09-08] MEDS: ALPRAZolam 0.25 MG TABLET PO SCH ×3 (06:14→21:53)
[2018-09-08] MEDS ORDERED: INSULIN (NOVOLOG) ASPART 100 UNITS/ML 10ML VIAL ONE ×2 (06:41→11:36)
[2018-09-08] MEDS ORDERED: INSULIN (LEVEMIR) 100 UNITS/ML UNITS SQ ONE (06:41)
[2018-09-08 08:02] LABS: HEMATOCRIT 26.1 % (32.4-45.2); HEMOGLOBIN 7.6 GM/dL (10.7-15.3); MCH 21.9 pg (25.7-33.7); MCHC 29.2 g/dl (32.0-36.0); MEAN CELL VOLUME 74.9 fl (80-96); MEAN PLT VOLUME 8.8 fl (7.5-11.1); PLATELET COUNT 248 K/MM3 (134-434); RBC 3.48 M/mm3 (3.60-5.2); RDW 19.9 % (11.6-15.6); WHITE BLOOD COUNT 5.8 K/mm3 (4.0-10.0)
[2018-09-08] MEDS ORDERED: PT OWN MED DRAWER 7, Y5N ONE ×2 (08:14→21:50)
[2018-09-08 08:34] LABS: ANION GAP 10 MMOL/L (8-16); BLOOD UREA NITROGEN 6 mg/dL (7-18); CHLORIDE 110 mmol/L (98-107); CO2 27 mmol/L (21-32); CREATININE 0.5 mg/dL (0.55-1.3); GLUCOSE,RANDOM 178 mg/dL (74-106); MAGNESIUM 1.9 mg/dL (1.8-2.4); POTASSIUM 3.7 mmol/L (3.5-5.1); SODIUM 147 mmol/L (136-145)
[2018-09-08] MEDS: ALBUTEROL SO4 2.5/IPRATROPIUM 0.5 INH SOL 3 ML VIAL.NEB. NEB SCH ×5 (08:34→20:29)
[2018-09-08] MEDS: APIXABAN 5 MG TABLET PO SCH ×2 (09:28→21:53)
[2018-09-08] MEDS: PANTOPRAZOLE 40 MG TABLET (FP) PO SCH (09:28)
[2018-09-08] MEDS: predniSONE 5 MG TABLET (UD) PO SCH (09:28)
[2018-09-08] MEDS: [UNRECOGNIZED DRUG - OTHER] PO SCH (09:28)
[2018-09-08] MEDS: VENLAFAXINE HCL 75 MG E.R. CAPSULES (FP) PO SCH (09:29)
[2018-09-08] MEDS: TOPIRAMATE 100 MG TABLET PO SCH (09:30)
[2018-09-08] MEDS: DOXEPIN HCL 25 MG CAPSULE PO SCH (09:30)
[2018-09-08] MEDS ORDERED: morphine SULFATE 4 MG/ML VIAL ONE (10:59)
[2018-09-08] MEDS ORDERED: morphine SULFATE 4 MG/ML VIAL IVPB PRN (11:06)
[2018-09-08] MEDS: morphine SULFATE 4 MG/ML VIAL IVPB PRN (11:25)
[2018-09-08] MEDS ORDERED: ERTAPENEM SODIUM 1 GM/50 ML PRE-DOCKED IVPB SCH (12:00)
--- NOTE | 2018-09-08 12:04 | PN ---
Progress Note (short form) - Note Progress Note: continued chronic back pain Vital Signs Period Temp Pulse Resp BP Sys/Dan Pulse Ox Last 24 Hr 97.5 F-98.6 F 82-126 16-20 113-134/61-86 100 cor-rrr lungs clear abd soft,nt ext no edema +patterson CBC, BMP 09/08/18 06:30 09/08/18 06:30 Microbiology 09/04/18 15:13 Urine - Urine Clean Catch Urine Culture - Preliminary Escherichia Coli Esbl [employer] D Strep Or Entero Coccus Proteus Species a/p fever UTI-polymicrobial patterson day #5 ertapenem can switch to macrobid and f/u with urology Problem List - Problems (1) Fever Code(s): R50.9 - FEVER, UNSPECIFIED (2) UTI (urinary tract infection) Code(s): N39.0 - URINARY TRACT INFECTION, SITE NOT SPECIFIED (3) Diabetes Code(s): E11.9 - TYPE 2 DIABETES MELLITUS WITHOUT COMPLICATIONS (4) MRSA (methicillin resistant Staphylococcus aureus) colonization Code(s): Z22.322 - CARRIER OR SUSPECTED CARRIER OF METHICILLIN RESIS STAPH (5) History of ESBL Klebsiella pneumoniae infection Code(s): Z86.19 - PERSONAL HISTORY OF OTHER INFECTIOUS AND PARASITIC DISEASES
--- NOTE | 2018-09-08 14:08 | PN ---
Progress Note, Physician History of Present Illness: pulmonary alert,no distress,-sob,-pains - Current Medication List Current Medications: Active Medications Acetaminophen (Tylenol -) 650 mg PO Q6H PRN PRN Reason: FEVER Last Admin: 09/08/18 00:08 Dose: 650 mg Albuterol Sulfate (Ventolin Hfa Inhaler -) 2 puff IH Q4H PRN PRN Reason: SHORT OF BREATH/WHEEZING Albuterol/Ipratropium (Duoneb -) 1 amp NEB RQID [facility] Last Admin: 09/08/18 12:35 Dose: 1 amp Alprazolam (Xanax -) 0.25 mg PO TID [facility] Last Admin: 09/08/18 06:14 Dose: 0.25 mg Apixaban (Eliquis -) 5 mg PO BID [facility] Last Admin: 09/08/18 09:28 Dose: 5 mg Baclofen (Lioresal -) 20 mg PO TID [facility] Last Admin: 09/08/18 06:13 Dose: 20 mg Diltiazem HCl (Cardizem Cd -) 240 mg PO BID [facility] Last Admin: 09/08/18 09:28 Dose: 240 mg Doxepin HCl (Sinequan -) 25 mg PO DAILY [facility] Last Admin: 09/08/18 09:30 Dose: 25 mg Gabapentin 300 mg/ Gabapentin (200 mg) 500 mg PO TID [facility] Last Admin: 09/08/18 06:14 Dose: 500 mg Sodium Chloride (Normal Saline -) 1,000 mls @ 75 mls/hr IV ASDIR [facility] Last Admin: 09/07/18 21:59 Dose: 75 mls/hr Ertapenem 1 gm/ Sodium (Chloride) 50 mls @ 100 mls/hr IVPB DAILY [facility] Insulin Aspart (Novolog Vial Sliding Scale -) 1 vial SQ ACHS [facility]; Protocol Last Admin: 09/08/18 11:40 Dose: 3 units Insulin Detemir (Levemir Vial) 10 units SQ DAILY@0700 [facility] Last Admin: 09/08/18 06:12 Dose: 10 units Levothyroxine Sodium (Synthroid -) 50 mcg PO DAILY@0700 [facility] Last Admin: 09/08/18 06:13 Dose: 50 mcg Loratadine (Claritin -) 10 mg PO HS [facility] Last Admin: 09/07/18 21:32 Dose: 10 mg Montelukast Sodium (Singulair -) 10 mg PO HS [facility] Last Admin: 09/07/18 21:32 Dose: 10 mg Morphine Sulfate (Morphine Sulfate) 4 mg IVPB Q6H PRN PRN Reason: PAIN SCALE 6-8 Last Admin: 09/08/18 11:25 Dose: 4 mg Non-Formulary Medication (Linaclotide [Linzess]) 145 mcg PO DAILY [facility] Non-Formulary Medication (Mirabegron [Myrbetriq]) 50 mg PO DAILY [facility] [employer] Own Med( Vortioxetine Hydrobromide [ Trintellix] 20 Mg) 20 mg PO DAILY [facility] Last Admin: 09/08/18 09:28 Dose: 20 mg Ondansetron HCl (Zofran -) 8 mg PO TID [facility] Last Admin: 09/08/18 06:13 Dose: 8 mg Pantoprazole Sodium (Protonix -) 40 mg PO DAILY [facility] Last Admin: 09/08/18 09:28 Dose: 40 mg Prednisone (Deltasone -) 5 mg PO DAILY [facility] Last Admin: 09/08/18 09:28 Dose: 5 mg Rosuvastatin Calcium (Crestor -) 10 mg PO HS [facility] Last Admin: 09/07/18 21:32 Dose: 10 mg Topiramate (Topamax -) 100 mg PO DAILY [facility] Last Admin: 09/08/18 09:30 Dose: 100 mg Venlafaxine HCl (Effexor Xr -) 75 mg PO DAILY@0800 [facility] Last Admin: 09/08/18 09:29 Dose: 75 mg - Objective Vital Signs: Vital Signs Temperature 98.5 F 09/08/18 10:00 Pulse Rate 106 H 09/08/18 12:15 Respiratory Rate 16 09/08/18 12:15 Blood Pressure 112/76 09/08/18 12:15 O2 Sat by Pulse Oximetry (%) 100 09/07/18 21:00 Constitutional: Yes: Well Nourished, Calm Eyes: Yes: WNL HENT: Yes: WNL Neck: Yes: Supple (trach) Cardiovascular: Yes: Regular Rate and Rhythm, S1, S2 Respiratory: Yes: Rales (few wheezes) Gastrointestinal: Yes: Normal Bowel Sounds, Soft Extremities: Yes: WNL Edema: No Labs: CBC, BMP 09/08/18 06:30 09/08/18 06:30 INR, PTT INR 1.47 (0.83-1.09) H 09/04/18 14:54 Assessment/Plan Problem List - Problems (1) Chronic respiratory failure Code(s): J96.10 - CHRONIC RESPIRATORY FAILURE, UNSP W HYPOXIA OR HYPERCAPNIA (2) Abdominal pain Code(s): R10.9 - UNSPECIFIED ABDOMINAL PAIN (3) Back pain Code(s): M54.9 - DORSALGIA, UNSPECIFIED (4) Asthma Code(s): J45.909 - UNSPECIFIED ASTHMA, UNCOMPLICATED (5) Bipolar 2 disorder Code(s): F31.81 - BIPOLAR II DISORDER (6) COPD (chronic obstructive pulmonary disease) Code(s): J44.9 - CHRONIC OBSTRUCTIVE PULMONARY DISEASE, UNSPECIFIED Qualifiers: COPD type: unspecified COPD Qualified Code(s): J44.9 - Chronic obstructive pulmonary disease, unspecified (7) Depression with anxiety Code(s): F41.8 - OTHER SPECIFIED ANXIETY DISORDERS (8) Diabetes mellitus Code(s): E11.9 - TYPE 2 DIABETES MELLITUS WITHOUT COMPLICATIONS Qualifiers: Diabetes mellitus type: type 2 (9) GERD (gastroesophageal reflux disease) Code(s): K21.9 - GASTRO-ESOPHAGEAL REFLUX DISEASE WITHOUT ESOPHAGITIS (10) Gastritis Code(s): K29.70 - GASTRITIS, UNSPECIFIED, WITHOUT BLEEDING Qualifiers: Gastritis type: unspecified gastritis Chronicity: unspecified Gastritis bleeding: without bleeding Qualified Code(s): K29.70 - Gastritis, unspecified , without bleeding (11) HTN (hypertension) Code(s): I10 - ESSENTIAL (PRIMARY) HYPERTENSION Qualifiers: (12) Hyperlipidemia Code(s): E78.5 - HYPERLIPIDEMIA, UNSPECIFIED Qualifiers: (13) Mood disorder Code(s): F39 - UNSPECIFIED MOOD [AFFECTIVE] DISORDER (14) Neuropathy Code(s): G62.9 - POLYNEUROPATHY, UNSPECIFIED (15) Non compliance w medication regimen Code(s): Z91.14 - PATIENT'S OTHER NONCOMPLIANCE WITH MEDICATION REGIMEN (16) Paroxysmal atrial fibrillation Code(s): I48.0 - PAROXYSMAL ATRIAL FIBRILLATION (17) Total body pain Code(s): R52 - PAIN, UNSPECIFIED Assessment/Plan OK to maintain Duoneb for now Mobilzation and PT if able Prednsione 5mg OD Trach collar O2 No Pulmonary contraindication for D/C planning Dr Srivastava Problem List - Problems (1) Chronic respiratory failure Code(s): J96.10 - CHRONIC RESPIRATORY FAILURE, UNSP W HYPOXIA OR HYPERCAPNIA (2) Abdominal pain Code(s): R10.9 - UNSPECIFIED ABDOMINAL PAIN (3) Back pain Code(s): M54.9 - DORSALGIA, UNSPECIFIED (4) Asthma Code(s): J45.909 - UNSPECIFIED ASTHMA, UNCOMPLICATED (5) Bipolar 2 disorder Code(s): F31.81 - BIPOLAR II DISORDER (6) COPD (chronic obstructive pulmonary disease) Code(s): J44.9 - CHRONIC OBSTRUCTIVE PULMONARY DISEASE, UNSPECIFIED Qualifiers: COPD type: unspecified COPD Qualified Code(s): J44.9 - Chronic obstructive pulmonary disease, unspecified (7) Depression with anxiety Code(s): F41.8 - OTHER SPECIFIED ANXIETY DISORDERS (8) Diabetes mellitus Code(s): E11.9 - TYPE 2 DIABETES MELLITUS WITHOUT COMPLICATIONS Qualifiers: Diabetes mellitus type: type 2 (9) GERD (gastroesophageal reflux disease) Code(s): K21.9 - GASTRO-ESOPHAGEAL REFLUX DISEASE WITHOUT ESOPHAGITIS (10) Gastritis Code(s): K29.70 - GASTRITIS, UNSPECIFIED, WITHOUT BLEEDING Qualifiers: Gastritis type: unspecified gastritis Chronicity: unspecified Gastritis bleeding: without bleeding Qualified Code(s): K29.70 - Gastritis, unspecified , without bleeding (11) HTN (hypertension) Code(s): I10 - ESSENTIAL (PRIMARY) HYPERTENSION Qualifiers: (12) Hyperlipidemia Code(s): E78.5 - HYPERLIPIDEMIA, UNSPECIFIED Qualifiers: (13) Mood disorder Code(s): F39 - UNSPECIFIED MOOD [AFFECTIVE] DISORDER (14) Neuropathy Code(s): G62.9 - POLYNEUROPATHY, UNSPECIFIED (15) Non compliance w medication regimen Code(s): Z91.14 - PATIENT'S OTHER NONCOMPLIANCE WITH MEDICATION REGIMEN (16) Paroxysmal atrial fibrillation Code(s): I48.0 - PAROXYSMAL ATRIAL FIBRILLATION (17) Total body pain Code(s): R52 - PAIN, UNSPECIFIED
[2018-09-08] MEDS: ERTAPENEM SODIUM 1 GM in SODIUM CHLORIDE 50 ML IVPB SCH (14:52)
--- NOTE | 2018-09-08 15:41 | DS ---
Physical Examination Vital Signs: Vital Signs Temperature 98.5 F 09/08/18 10:00 Pulse Rate 106 H 09/08/18 12:15 Respiratory Rate 16 09/08/18 12:15 Blood Pressure 112/76 09/08/18 12:15 O2 Sat by Pulse Oximetry (%) 100 09/07/18 21:00 Constitutional: Yes: No Distress Eyes: Yes: WNL HENT: Yes: WNL Neck: Yes: Other Cardiovascular: Yes: WNL Respiratory: Yes: Other (trachcollar support 02) Gastrointestinal: Yes: Soft, Abdomen, Obese Renal/: Yes: Other Musculoskeletal: Yes: Muscle Weakness Extremities: Yes: Other Edema: Yes Peripheral Pulses WNL: Yes Integumentary: Yes: Rash, Other Wound/Incision: Yes: Dressing Dry and Intact Neurological: Yes: Pre-Existing Deficit ...Motor Strength: LLE, RLE Psychiatric: Yes: Other Labs: CBC, BMP 09/08/18 06:30 09/08/18 06:30 Discharge Summary Reason For Visit: URINARY TRACT INFECTION Current Active Problems Abdominal pain (Acute) Back pain (Acute) Chronic respiratory failure (Acute) Diabetes (Acute) Fever (Acute) History of ESBL Klebsiella pneumoniae infection (Acute) Lethargy (Acute) MRSA (methicillin resistant Staphylococcus aureus) colonization (Acute) UTI (urinary tract infection) (Acute) Procedures: Principal: ct scan Hospital Course: ADMITTED SEPSIS UTI, RESP FAILURE WITH TRACH COLLAR, IV ABX GIVEN WITH 02 SUPPORT Condition: Fair - Instructions Diet, Activity, Other Instructions: SEE DR JAQUEZ IN 5 DAYS Referrals: Manolo Jaquez [Primary Care Provider] - Disposition: VNS/HOME HEALTH CARE - Home Medications Comprehensive Discharge Medication List: Ambulatory Orders Albuterol Sulfate Inhaler - [Ventolin HFA Inhaler -] 2 puff IH Q4H PRN #0 inhaler 11/29/16 Acetaminophen [Tylenol .Regular Strength -] 650 mg PO Q6H PRN #0 tablet Apixaban [Eliquis -] 5 mg PO BID tablet 04/29/17 Baclofen 20 mg PO TID 07/09/18 Diltiazem HCl [Diltiazem 24Hr Cd] 240 mg PO BID 07/09/18 Levocetirizine Dihydrochloride 5 mg PO HS 07/09/18 Levothyroxine [Synthroid -] 50 mcg PO DAILY 07/09/18 Rosuvastatin Calcium [Crestor] 10 mg PO DAILY 07/09/18 Venlafaxine HCl ER [Effexor Xr -] 75 mg PO DAILY 07/09/18 Famotidine 40 mg PO BID 08/07/18 Hydromorphone HCl 4 mg PO Q4H 08/07/18 Mirabegron [Myrbetriq] 50 mg PO DAILY 08/07/18 Montelukast Na [Singulair -] 10 mg PO HS 08/07/18 Alprazolam [Xanax] 0.25 mg PO TID #15 tablet MDD 3 08/15/18 Doxepin HCl [Sinequan -] 25 mg PO DAILY #30 capsule 08/15/18 Linaclotide [Linzess] 145 mcg PO DAILY #30 cap 08/15/18 Pantoprazole Sodium [Protonix -] 40 mg PO DAILY #30 tablet.ec 08/15/18 Topiramate [Topamax -] 100 mg PO DAILY #30 tablet 08/15/18 Vortioxetine Hydrobromide [Trintellix] 20 mg PO DAILY #30 tablet 08/15/18 Gabapentin [Neurontin -] 500 mg PO Q8H #21 capsule 08/30/18 Insulin (Novolog) [Novolog] 0 units SQ AC 08/30/18 Ondansetron [Zofran -] 8 mg PO TID 08/30/18 Zolpidem Tartrate 10 mg PO HS MDD 1 09/04/18
[2018-09-08] MEDS: ROSUVASTATIN CA 10 MG TABLET (FP) PO SCH (21:52)
[2018-09-08] MEDS: LORATADINE 10 MG TABLET PO SCH (21:53)
[2018-09-08] MEDS: MONTELUKAST NA 10 MG TABLET PO SCH (21:53)
[2018-09-09] MEDS: ONDANSETRON 4 MG TABLET PO SCH ×2 (05:54→13:12)
[2018-09-09] MEDS: BACLOFEN 10 MG TABLET (FP) PO SCH ×2 (05:54→13:02)
[2018-09-09] MEDS: ALPRAZolam 0.25 MG TABLET PO SCH ×2 (05:54→13:03)
[2018-09-09] MEDS: INSULIN (LEVEMIR) 100 UNITS/ML UNITS SQ SCH (06:08)
[2018-09-09] MEDS: LEVOTHYROXINE NA 50 MCG TABLET (FP) PO SCH (06:08)
[2018-09-09] MEDS: INSULIN SLIDING SCALE (NOVOLOG) 1 VIAL SQ SCH ×2 (06:08→13:04)
[2018-09-09] MEDS: GABAPENTIN 300 MG, GABAPENTIN 200 MG PO SCH ×2 (06:11→13:03)
[2018-09-09] MEDS: ALBUTEROL SO4 2.5/IPRATROPIUM 0.5 INH SOL 3 ML VIAL.NEB. NEB SCH ×2 (07:53→11:09)
[2018-09-09] MEDS: VENLAFAXINE HCL 75 MG E.R. CAPSULES (FP) PO SCH (08:21)
[2018-09-09] MEDS ORDERED: PT OWN MED DRAWER 7, Y5N ONE ×2 (08:50→12:50)
[2018-09-09] MEDS ORDERED: INSULIN (LEVEMIR) 100 UNITS/ML UNITS SQ ONE (08:53)
[2018-09-09] MEDS ORDERED: INSULIN (NOVOLOG) ASPART 100 UNITS/ML 10ML VIAL ONE (08:53)
[2018-09-09] MEDS: morphine SULFATE 4 MG/ML VIAL IVPB PRN ×2 (09:19→14:47)
[2018-09-09] MEDS: predniSONE 5 MG TABLET (UD) PO SCH (09:20)
[2018-09-09] MEDS: PANTOPRAZOLE 40 MG TABLET (FP) PO SCH (09:21)
[2018-09-09] MEDS: DOXEPIN HCL 25 MG CAPSULE PO SCH (09:21)
[2018-09-09] MEDS: TOPIRAMATE 100 MG TABLET PO SCH (09:21)
[2018-09-09] MEDS: APIXABAN 5 MG TABLET PO SCH (09:21)
[2018-09-09] MEDS: [UNRECOGNIZED DRUG - OTHER] PO SCH (09:22)
--- NOTE | 2018-09-09 09:46 | PN ---
Progress Note (short form) - Note Progress Note: Resting in NAD on Trach collar. No CP or SOB. Overall improving. Intake & Output 09/06/18 09/07/18 09/08/18 09/09/18 23:59 23:59 23:59 23:59 Intake Total 970 1875 450 Output Total 2700 1100 1000 600 Balance -1730 775 -550 -600 Last Vital Signs Temp Pulse Resp BP Pulse Ox 98 F 109 H 20 127/78 98 09/09/18 06:46 09/09/18 07:53 09/09/18 06:46 09/09/18 06:46 09/09/18 07:53 Active Medications Acetaminophen (Tylenol -) 650 mg PO Q6H PRN PRN Reason: FEVER Last Admin: 09/08/18 20:30 Dose: 650 mg Albuterol Sulfate (Ventolin Hfa Inhaler -) 2 puff IH Q4H PRN PRN Reason: SHORT OF BREATH/WHEEZING Albuterol/Ipratropium (Duoneb -) 1 amp NEB RQID [facility] Last Admin: 09/09/18 07:53 Dose: 1 amp Alprazolam (Xanax -) 0.25 mg PO TID [facility] Last Admin: 09/09/18 05:54 Dose: 0.25 mg Apixaban (Eliquis -) 5 mg PO BID [facility] Last Admin: 09/09/18 09:21 Dose: 5 mg Baclofen (Lioresal -) 20 mg PO TID [facility] Last Admin: 09/09/18 05:54 Dose: 20 mg Diltiazem HCl (Cardizem Cd -) 240 mg PO BID [facility] Last Admin: 09/09/18 09:21 Dose: 240 mg Doxepin HCl (Sinequan -) 25 mg PO DAILY [facility] Last Admin: 09/09/18 09:21 Dose: 25 mg Gabapentin 300 mg/ Gabapentin (200 mg) 500 mg PO TID [facility] Last Admin: 09/09/18 06:11 Dose: 500 mg Sodium Chloride (Normal Saline -) 1,000 mls @ 75 mls/hr IV ASDIR [facility] Last Admin: 09/07/18 21:59 Dose: 75 mls/hr Ertapenem 1 gm/ Sodium (Chloride) 50 mls @ 100 mls/hr IVPB DAILY [facility] Last Admin: 09/08/18 14:52 Dose: 100 mls/hr Insulin Aspart (Novolog Vial Sliding Scale -) 1 vial SQ [facility]; Protocol Last Admin: 09/09/18 06:08 Dose: 3 units Insulin Detemir (Levemir Vial) 10 units SQ DAILY@0700 [facility] Last Admin: 09/09/18 06:08 Dose: 10 units Levothyroxine Sodium (Synthroid -) 50 mcg PO DAILY@0700 [facility] Last Admin: 09/09/18 06:08 Dose: 50 mcg Loratadine (Claritin -) 10 mg PO [facility] Last Admin: 09/08/18 21:53 Dose: 10 mg Montelukast Sodium (Singulair -) 10 mg PO [facility] Last Admin: 09/08/18 21:53 Dose: 10 mg Morphine Sulfate (Morphine Sulfate) 4 mg IVPB Q6H PRN PRN Reason: PAIN SCALE 6-8 Last Admin: 09/09/18 09:19 Dose: 4 mg Non-Formulary Medication (Linaclotide [Linzess]) 145 mcg PO DAILY [facility] Non-Formulary Medication (Mirabegron [Myrbetriq]) 50 mg PO DAILY [facility] [employer]( Vortioxetine Hydrobromide [ Trintellix] 20 Mg) 20 mg PO DAILY [facility] Last Admin: 09/09/18 09:22 Dose: 20 mg Ondansetron HCl (Zofran -) 8 mg PO TID [facility] Last Admin: 09/09/18 05:54 Dose: 8 mg Pantoprazole Sodium (Protonix -) 40 mg PO DAILY [facility] Last Admin: 09/09/18 09:21 Dose: 40 mg Prednisone (Deltasone -) 5 mg PO DAILY [facility] Last Admin: 09/09/18 09:20 Dose: 5 mg Rosuvastatin Calcium (Crestor -) 10 mg PO [facility] Last Admin: 09/08/18 21:52 Dose: 10 mg Topiramate (Topamax -) 100 mg PO DAILY [facility] Last Admin: 09/09/18 09:21 Dose: 100 mg Venlafaxine HCl (Effexor Xr -) 75 mg PO DAILY@0800 [facility] Last Admin: 09/09/18 08:21 Dose: 75 mg Constitutional: Yes: No Distress Eyes: Yes: Conjunctiva Clear, EOM Intact HENT: Yes: Atraumatic, Normocephalic Neck: Yes: Trachea Midline, Other (Trach intact) Cardiovascular: Yes: Regular Rate and Rhythm Respiratory: Yes: Cough, Diminished, Other (Trach intact with Trach collar in place ). No: Accessory Muscle Use, Rales, SOB, SOB on Exertion, Stridor, Tachypnea, Wheezes ...Inspection: Yes: WNL ...Clubbing: No Gastrointestinal: Yes: Normal Bowel Sounds, Soft, Abdomen, Obese Musculoskeletal: Yes: Back Pain, Joint Stiffness, Muscle Weakness Extremities: Yes: Shortened Peripheral Pulses WNL: Yes Integumentary: Yes: WNL Neurological: Yes: Alert, Oriented Psychiatric: Yes: WNL, Alert, Oriented Labs: Laboratory Results - last 24 hr 09/08/18 09/08/18 09/08/18 11:32 18:03 21:58 POC Glucometer 177 269 248 TSH Free T4 09/09/18 09/09/18 06:00 06:00 POC Glucometer 170 TSH 0.42 Free T4 1.02 Problem List - Problems (1) Chronic respiratory failure Code(s): J96.10 - CHRONIC RESPIRATORY FAILURE, UNSP W HYPOXIA OR HYPERCAPNIA (2) Abdominal pain Code(s): R10.9 - UNSPECIFIED ABDOMINAL PAIN (3) Back pain Code(s): M54.9 - DORSALGIA, UNSPECIFIED (4) Asthma Code(s): J45.909 - UNSPECIFIED ASTHMA, UNCOMPLICATED (5) Bipolar 2 disorder Code(s): F31.81 - BIPOLAR II DISORDER (6) COPD (chronic obstructive pulmonary disease) Code(s): J44.9 - CHRONIC OBSTRUCTIVE PULMONARY DISEASE, UNSPECIFIED Qualifiers: COPD type: unspecified COPD Qualified Code(s): J44.9 - Chronic obstructive pulmonary disease, unspecified (7) Depression with anxiety Code(s): F41.8 - OTHER SPECIFIED ANXIETY DISORDERS (8) Diabetes mellitus Code(s): E11.9 - TYPE 2 DIABETES MELLITUS WITHOUT COMPLICATIONS Qualifiers: Diabetes mellitus type: type 2 (9) GERD (gastroesophageal reflux disease) Code(s): K21.9 - GASTRO-ESOPHAGEAL REFLUX DISEASE WITHOUT ESOPHAGITIS (10) Gastritis Code(s): K29.70 - GASTRITIS, UNSPECIFIED, WITHOUT BLEEDING Qualifiers: Gastritis type: unspecified gastritis Chronicity: unspecified Gastritis bleeding: without bleeding Qualified Code(s): K29.70 - Gastritis, unspecified , without bleeding (11) HTN (hypertension) Code(s): I10 - ESSENTIAL (PRIMARY) HYPERTENSION Qualifiers: (12) Hyperlipidemia Code(s): E78.5 - HYPERLIPIDEMIA, UNSPECIFIED Qualifiers: (13) Mood disorder Code(s): F39 - UNSPECIFIED MOOD [AFFECTIVE] DISORDER (14) Neuropathy Code(s): G62.9 - POLYNEUROPATHY, UNSPECIFIED (15) Non compliance w medication regimen Code(s): Z91.14 - PATIENT'S OTHER NONCOMPLIANCE WITH MEDICATION REGIMEN (16) Paroxysmal atrial fibrillation Code(s): I48.0 - PAROXYSMAL ATRIAL FIBRILLATION (17) Total body pain Code(s): R52 - PAIN, UNSPECIFIED Assessment/Plan Do not suspect PNA Mobilzation and PT Prednsione 5mg OD, can attempt taper to off as an outpatient Trach collar O2 No Pulmonary contraindication for D/C Dr Castaneda Problem List - Problems (1) Chronic respiratory failure Code(s): J96.10 - CHRONIC RESPIRATORY FAILURE, UNSP W HYPOXIA OR HYPERCAPNIA (2) Abdominal pain Code(s): R10.9 - UNSPECIFIED ABDOMINAL PAIN (3) Back pain Code(s): M54.9 - DORSALGIA, UNSPECIFIED (4) Asthma Code(s): J45.909 - UNSPECIFIED ASTHMA, UNCOMPLICATED (5) Bipolar 2 disorder Code(s): F31.81 - BIPOLAR II DISORDER (6) COPD (chronic obstructive pulmonary disease) Code(s): J44.9 - CHRONIC OBSTRUCTIVE PULMONARY DISEASE, UNSPECIFIED Qualifiers: COPD type: unspecified COPD Qualified Code(s): J44.9 - Chronic obstructive pulmonary disease, unspecified (7) Depression with anxiety Code(s): F41.8 - OTHER SPECIFIED ANXIETY DISORDERS (8) Diabetes mellitus Code(s): E11.9 - TYPE 2 DIABETES MELLITUS WITHOUT COMPLICATIONS Qualifiers: Diabetes mellitus type: type 2 (9) GERD (gastroesophageal reflux disease) Code(s): K21.9 - GASTRO-ESOPHAGEAL REFLUX DISEASE WITHOUT ESOPHAGITIS (10) Gastritis Code(s): K29.70 - GASTRITIS, UNSPECIFIED, WITHOUT BLEEDING Qualifiers: Gastritis type: unspecified gastritis Chronicity: unspecified Gastritis bleeding: without bleeding Qualified Code(s): K29.70 - Gastritis, unspecified , without bleeding (11) HTN (hypertension) Code(s): I10 - ESSENTIAL (PRIMARY) HYPERTENSION Qualifiers: (12) Hyperlipidemia Code(s): E78.5 - HYPERLIPIDEMIA, UNSPECIFIED Qualifiers: (13) Mood disorder Code(s): F39 - UNSPECIFIED MOOD [AFFECTIVE] DISORDER (14) Neuropathy Code(s): G62.9 - POLYNEUROPATHY, UNSPECIFIED (15) Non compliance w medication regimen Code(s): Z91.14 - PATIENT'S OTHER NONCOMPLIANCE WITH MEDICATION REGIMEN (16) Paroxysmal atrial fibrillation Code(s): I48.0 - PAROXYSMAL ATRIAL FIBRILLATION (17) Total body pain Code(s): R52 - PAIN, UNSPECIFIED
--- NOTE | 2018-09-09 10:29 | PN ---
Progress Note (short form) - Note Progress Note: PATIENT SEEN AND FORMS COMPLETED MEDICATION SCRIPTS SENT TO PHARMACY F/U WITH PMD IN THE NEXT 4-5 DAYS Problem List - Problems (1) Abdominal pain Code(s): R10.9 - UNSPECIFIED ABDOMINAL PAIN (2) Back pain Code(s): M54.9 - DORSALGIA, UNSPECIFIED (3) Chronic respiratory failure Code(s): J96.10 - CHRONIC RESPIRATORY FAILURE, UNSP W HYPOXIA OR HYPERCAPNIA (4) Diabetes Code(s): E11.9 - TYPE 2 DIABETES MELLITUS WITHOUT COMPLICATIONS (5) History of ESBL Klebsiella pneumoniae infection Code(s): Z86.19 - PERSONAL HISTORY OF OTHER INFECTIOUS AND PARASITIC DISEASES (6) Acute and chronic respiratory failure with hypoxia Code(s): J96.21 - ACUTE AND CHRONIC RESPIRATORY FAILURE WITH HYPOXIA (7) Acute exacerbation of COPD with asthma Code(s): J44.1 - CHRONIC OBSTRUCTIVE PULMONARY DISEASE W (ACUTE) EXACERBATION; J45.901 - UNSPECIFIED ASTHMA WITH (ACUTE) EXACERBATION (8) Chronic pain disorder Code(s): G89.4 - CHRONIC PAIN SYNDROME (9) Depression with anxiety Code(s): F41.8 - OTHER SPECIFIED ANXIETY DISORDERS
[2018-09-09] MEDS: ERTAPENEM SODIUM 1 GM in SODIUM CHLORIDE 50 ML IVPB SCH (11:01)
[2018-09-09] MEDS ORDERED: GABAPENTIN 100 MG CAPSULE (FP) ONE (12:49)
[2018-09-09] MEDS ORDERED: GABAPENTIN 300 MG CAPSULE (FP) ONE (12:49)
[2018-09-09] MEDS: SODIUM CHLORIDE 1,000 ML IV SCH (13:04)
[2018-09-09 14:58] VITALS: BP 134/74; PULSE 114; TEMP 98.5
== END 2018-09-09 15:13 | disposition home health service (06) | DRG 698 ==
LOC: JER 12:16 → JERBED 18:50 → OBSVTOIN 20:48 → J8W 09-05 13:52
PROVIDERS: ADMIT Internal Medicine; ATTEND Family Medicine
DX: T83.511A Infection and inflammatory reaction due to indwelling urethral catheter, initial encounter (principal); A41.9 Sepsis, unspecified organism; J96.10 Chronic respiratory failure, unspecified whether with hypoxia or hypercapnia; J98.11 Atelectasis; N39.0 Urinary tract infection, site not specified; B96.29 Other Escherichia coli [E. coli] as the cause of diseases classified elsewhere; B96.4 Proteus (mirabilis) (morganii) as the cause of diseases classified elsewhere; B95.2 Enterococcus as the cause of diseases classified elsewhere; Y84.8 Other medical procedures as the cause of abnormal reaction of the patient, or of later complication, without mention of misadventure at the time of the procedure; I48.0 Paroxysmal atrial fibrillation; Z93.0 Tracheostomy status; E11.9 Type 2 diabetes mellitus without complications; Z79.4 Long term (current) use of insulin; J44.9 Chronic obstructive pulmonary disease, unspecified; D50.9 Iron deficiency anemia, unspecified; E03.9 Hypothyroidism, unspecified; Z86.73 Personal history of transient ischemic attack (TIA), and cerebral infarction without residual deficits; Z79.01 Long term (current) use of anticoagulants; Z90.710 Acquired absence of both cervix and uterus; M54.9 Dorsalgia, unspecified; E66.9 Obesity, unspecified; Z68.31 Body mass index [BMI] 31.0-31.9, adult; G43.909 Migraine, unspecified, not intractable, without status migrainosus; E78.5 Hyperlipidemia, unspecified; Z85.42 Personal history of malignant neoplasm of other parts of uterus; Z99.81 Dependence on supplemental oxygen; F31.9 Bipolar disorder, unspecified; F41.9 Anxiety disorder, unspecified; Z87.891 Personal history of nicotine dependence; Z90.49 Acquired absence of other specified parts of digestive tract
CPT/HCPCS: 36415; 36600; 71045-TC-FY; 74176-TC; 80048; 80053; 81003; 81015; 82550; 82803; 82962; 83605; 83690; 83735; 84100; 84439; 84443; 84484; 85025; 85027; 85610; 85730; 87086; 87186; 93005; 93010; 94640; 99285-25; G0378; J0475; J7030; J7620

== ENCOUNTER 2018-09-14 12:35 | Emergency (ER) | payer OTHER ==
[2018-09-14 13:23] VITALS: TEMP 98.9; BMI 37.3
--- NOTE | 2018-09-14 13:30 | PDOC ---
History of Present Illness - General Chief Complaint: Urinary Catheter Problem Stated Complaint: CATHETER PROBLEM Time Seen by Provider: 09/14/18 12:43 History Source: Patient Exam Limitations: No Limitations - History of Present Illness Initial Comments: 09/14/18 13:29 The patient is a 52F with a PMH of diabetes, COPD s/p trach, atrial fibrillation , stroke, asthma, depression, uterine cancer s/p cystectomy, chronic back pain, migraines, osteomyelitis, small bowel resection, and anxiety who presents to the ER with complaints of pain around her patterson catheter site. The patient states that she has had worsening pain for the past "few days" which she describes as sharp and associated with L sided abdominal pain, unsure if it is radiating or not, constant, without any exacerbating factors, and only alleviated mildly by morphine. She denies fevers, chills, nausea, vomiting, CP, SOB. She admits to constipation for 10 days but has been passing gas. Past History - Past Medical History Allergies/Adverse Reactions: Allergies Allergy/AdvReac Type Severity Reaction Status Date / Time oxycodone [Oxycodone] Allergy Severe Nausea Verified 09/13/18 16:48 oxycodone HCl [From Percocet] Allergy Severe Nausea Verified 09/13/18 16:48 aspirin Allergy Mild Verified 09/13/18 16:48 blueberry [Blueberry] Allergy Mild Swelling Verified 09/13/18 16:48 fentanyl Allergy Mild Vomiting Verified 09/13/18 16:48 ibuprofen Allergy Swelling Verified 09/13/18 16:48 Home Medications: Ambulatory Orders Albuterol Sulfate Inhaler - [Ventolin HFA Inhaler -] 2 puff IH Q4H PRN #0 inhaler 11/29/16 Acetaminophen [Tylenol .Regular Strength -] 650 mg PO Q6H PRN #0 tablet Apixaban [Eliquis -] 5 mg PO BID tablet 04/29/17 Baclofen 20 mg PO TID 07/09/18 Diltiazem HCl [Diltiazem 24Hr Cd] 240 mg PO BID 07/09/18 Levocetirizine Dihydrochloride 5 mg PO HS 07/09/18 Levothyroxine [Synthroid -] 50 mcg PO DAILY 07/09/18 Rosuvastatin Calcium [Crestor] 10 mg PO DAILY 07/09/18 Venlafaxine HCl ER [Effexor Xr -] 75 mg PO DAILY 07/09/18 Famotidine 40 mg PO BID 08/07/18 Hydromorphone HCl 4 mg PO Q4H 08/07/18 Mirabegron [Myrbetriq] 50 mg PO DAILY 08/07/18 Montelukast Na [Singulair -] 10 mg PO HS 08/07/18 Alprazolam [Xanax] 0.25 mg PO TID #15 tablet MDD 3 08/15/18 Doxepin HCl [Sinequan -] 25 mg PO DAILY #30 capsule 08/15/18 Linaclotide [Linzess] 145 mcg PO DAILY #30 cap 08/15/18 Pantoprazole Sodium [Protonix -] 40 mg PO DAILY #30 tablet.ec 08/15/18 Topiramate [Topamax -] 100 mg PO DAILY #30 tablet 08/15/18 Vortioxetine Hydrobromide [Trintellix] 20 mg PO DAILY #30 tablet 08/15/18 Gabapentin [Neurontin -] 500 mg PO Q8H #21 capsule 08/30/18 Insulin (Novolog) [Novolog -] 0 units SQ AC 08/30/18 Ondansetron [Zofran -] 8 mg PO TID 08/30/18 Zolpidem Tartrate 10 mg PO HS MDD 1 09/04/18 Gabapentin [Neurontin -] 500 mg PO TID #90 capsule 09/08/18 Nitrofurantoin Monohyd/M-Cryst [Macrobid -] 100 mg PO BID #14 capsule 09/08/18 Ondansetron [Ondansetron Odt] 8 mg PO TID #90 tab.rapdis 09/09/18 Anemia: Yes Asthma: Yes (COPD, trach #8) Cancer: Yes (UTERINE) Cardiac Disorders: Yes (A-fib) CVA: No COPD: Yes CHF: No Dementia: No Diabetes: Yes GI Disorders: Yes (colitis, SB resection, GERD) Disorders: Yes (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) HTN: Yes Hypercholesterolemia: Yes Liver Disease: No Psychiatric Problems: Yes (ANXIETY) Seizures: Yes (5 yrs ago had a seizure ( zofran and reglan given together as per patient) Thyroid Disease: No - Surgical History Abdominal Surgery: Yes (BOWEL RESECTION) Appendectomy: Yes (removed 1998) Cardiac Surgery: No Cholecystectomy: No Lung Surgery: No Neurologic Surgery: No Orthopedic Surgery: Yes (Back Sx T7,6) - Immunization History Td Vaccination: Yes TDAP Vaccination: Yes Immunization Up to Date: Yes - Suicide/Smoking/Psychosocial Hx Smoking Status: No Smoking History: Never smoked Have you smoked in the past 12 months: No Number of Cigarettes Smoked Daily: 3 If you are a former smoker, when did you quit?: 2014 Information on smoking cessation initiated: No 'Breaking Loose' booklet given: 03/12/15 Hx Alcohol Use: No Drug/Substance Use Hx: No Substance Use Type: None Hx Substance Use Treatment: No Review of Systems - Review of Systems Able to Perform ROS?: Yes Comments:: 09/14/18 13:46 GENERAL/CONSTITUTIONAL: No fever or chills. No weakness. HEAD, EYES, EARS, NOSE AND THROAT: No change in vision. No ear pain or discharge. No sore throat. CARDIOVASCULAR: No chest pain, palpitations, or lightheadedness. RESPIRATORY: No cough, wheezing, shortness of breath, or hemoptysis. GASTROINTESTINAL: Positive for L sided abdominal pain. No nausea, vomiting, or diarrhea. GENITOURINARY: Positive for pain around patterson. MUSCULOSKELETAL: No joint or muscle swelling or pain. No neck or back pain. SKIN: No rash or lesions. NEUROLOGIC: No headache, numbness, tingling, focal weakness, loss of consciousness, or change in strength/sensation. ENDOCRINE: No increased thirst. No abnormal weight change. HEMATOLOGIC/LYMPHATIC: No anemia, easy bleeding, or history of blood clots. ALLERGIC/IMMUNOLOGIC: No hives or skin allergy. Is the patient limited [place] proficient: No *Physical Exam - Vital Signs Last Vital Signs Temp Pulse Resp BP Pulse Ox 98.9 F 121 H 18 126/79 98 09/14/18 13:00 09/14/18 13:00 09/14/18 13:00 09/14/18 13:00 09/14/18 13:00 ED Treatment Course - LABORATORY CBC & Chemistry Diagram: 09/14/18 14:04 09/14/18 14:04 Medical Decision Making - Medical Decision Making 09/14/18 13:50 The patient is a 52F with an extensive PMH who presents to the ER with complaints of pain around her patterson catheter and abdominal pain with constipation. I have d/w Dr. Haines, covering for Dr. Jaramillo, who states that it is ok to take out the patterson and have the patient follow up in clinic. 09/14/18 16:06 Patterson has been taken out. Pt was encouraged to do CTAP to look for obstruction. Morphine given for pain as the patient states "nothing else works". Pending CT. Pt does not want to be admitted. Will d/w PCP after CTAP. 09/14/18 16:47 Pt noted to have a diaper full of stool. Pt ammonia distiller so will continue with CTAP. 09/14/18 18:58 Pt signed out to Dr. Saini pending CTAP read.
[2018-09-14] MEDS ORDERED: ERTAPENEM SODIUM 1 GM in SODIUM CHLORIDE 50 ML IVPB ONE (13:31)
--- NOTE | 2018-09-14 13:37 | PDOC ---
Attending Attestation - Resident Resident Name: DheerajdeidreNicky sheehanDinh - ED Attending Attestation I have performed the following: I have examined & evaluated the patient, The case was reviewed & discussed with the resident, I agree w/resident's findings & plan - HPI HPI: 09/14/18 14:19 [place] 52 year old female with a past medical history of diabetes, COPD s/p trach, atrial fibrillation, stroke, asthma, depression, urine cancer s/p cystectomy, chronic back pain, migraines, osteomyelitis, small bowel resection, and anxiety presenting with pain with patterson catheter, seen yesterday for similar sx and told to c/w abx (macrobid course) and f/u urology. Today with worsening lower abdominal pain and dysuria. 09/04/18 urine cultures with ESBL, group D strep, enterococcus, proteus mirabilis - with multiple resistances. PMD Dr Goel. - Physicial Exam PE: 09/14/18 14:19 NAD, malaised appearing. nl conjunctiva, anicteric; neck supple. lungs clear, RRR, abdomen soft distended and tympanic, +anterior vertical surgical scar. diffusely tender, worse in LLQ and suprapubic. CUEVAS x4, no focal neuro deficits. No peripheral edema. normal color for ethnicity, WWP. - Medical Decision Making 09/14/18 13:36 [place] 52 year old female with a past medical history of diabetes, COPD s/p trach, atrial fibrillation, stroke, asthma, depression, urine cancer s/p cystectomy, chronic back pain, migraines, osteomyelitis, small bowel resection, and anxiety presenting with pain with patterson catheter, seen yesterday for similar sx and told to c/w abx (macrobid course) and f/u urology. Today with worsening lower abdominal pain and dysuria. 09/04/18 urine cultures with ESBL, group D strep, enterococcus, proteus mirabilis - with multiple resistances. urine culture yesterday pending, UA from yesterday appears infected. Vital signs reviewed, +tachycardic. likely from pain, which analgesia provided. Prior notes reviewed, including admissions, discharges and consultations. laboratory results and imaging reviewed, basic labs and lytes wnl, notable for positive urine cultures from 09/14/18 with ESBL, group D strep, proteus mirabilis, enterococcus - already treated per PMD> with prior admission. ED course: no acute events, remained stable and nontoxic. made large bowel movmeent, given dose of morphine for pain control. patterson catheter removed, ok to followup outpatient tomorrow. urology called yesterday with previous visit. pmd states to c/w macrobid for urinary sx and uti, pending cultures from yesterday still, with prelim UA yesterday with leuk esterase and WBCs 800 CT a/p: pending dispo: s/o pending CT results, reeval, pain control and ultimate dispo 09/14/18 20:11 09/14/18 20:12
[2018-09-14] MEDS ORDERED: ERTAPENEM SODIUM 1 GM VIAL ONE (13:43)
[2018-09-14 14:27] LABS: BASO % 1.1 % (0-2.0); HEMATOCRIT 31.4 % (32.4-45.2); HEMOGLOBIN 9.3 GM/dL (10.7-15.3); LYMPH % 18.5 % (8-40); MCH 22.1 pg (25.7-33.7); MCHC 29.7 g/dl (32.0-36.0); MEAN CELL VOLUME 74.4 fl (80-96); MEAN PLT VOLUME 8.8 fl (7.5-11.1); MONO % 8.5 % (3.8-10.2); NEUT % 66.9 % (42.8-82.8); PLATELET COUNT 403 K/MM3 (134-434); RBC 4.22 M/mm3 (3.60-5.2); RDW 20.8 % (11.6-15.6); WHITE BLOOD COUNT 7.2 K/mm3 (4.0-10.0)
[2018-09-14 14:52] LABS: ALBUMIN 2.8 g/dl (3.4-5.0); ALK PHOS 163 U/L (45-117); ANION GAP 9 MMOL/L (8-16); BILIRUBIN,TOTAL 0.2 mg/dL (0.2-1); BLOOD UREA NITROGEN 13 mg/dL (7-18); CALCIUM 8.7 mg/dL (8.5-10.1); CHLORIDE 105 mmol/L (98-107); CO2 26 mmol/L (21-32); CREATININE 0.5 mg/dL (0.55-1.3); GLUCOSE,RANDOM 148 mg/dL (74-106); POTASSIUM 4.1 mmol/L (3.5-5.1); SGOT/AST 34 U/L (15-37); SGPT/ALT 27 U/L (13-61); SODIUM 140 mmol/L (136-145); TOT PROT 6.6 g/dl (6.4-8.2)
[2018-09-14 15:16] LABS: ANISOCYTOSIS 1+; MACROCYTOSIS 0; PLATELET ESTIMATE NORMAL; TEAR DROP CELLS 1+
[2018-09-14] MEDS ORDERED: morphine CARPU-JECT 4 MG/1 ML DISP.SYRIN IVPUSH ONE (15:37)
[2018-09-14] MEDS ORDERED: morphine SULFATE 4 MG/ML VIAL ONE ×2 (16:00→20:22)
[2018-09-14] MEDS ORDERED: morphine CARPU-JECT 2 MG/1 ML DISP.SYRIN IM ONE (19:34)
--- NOTE | 2018-09-14 20:15 | PDOC ---
*Physical Exam - Vital Signs Last Vital Signs Temp Pulse Resp BP Pulse Ox 98.9 F 121 H 18 126/79 98 09/14/18 13:00 09/14/18 13:00 09/14/18 13:00 09/14/18 13:00 09/14/18 13:00 - Physical Exam Comments: 09/15/18 20:15 General Appearance: Nourished. No Apparent Distress HEENT: No Pharyngeal Erythema, Tonsillar Exudate, Tonsillar Erythema Neck: No Cervical Lymphadenopathy Respiratory/Chest: Lungs Clear, Normal Breath Sounds. No Crackles, Rales, Rhonchi, Wheezing Cardiovascular: Regular Rhythm, Regular Rate. No Murmur, Gallops, Rubs Gastrointestinal/Abdominal: Normal Bowel Sounds, Soft. No Guarding, Rebound, Tenderness Musculoskeletal: No CVA Tenderness Extremity: Normal Capillary Refill Integumentary: Normal Color, Dry, Warm Neurologic: Fully Oriented, Alert, Normal Mood/Affect, Normal Response, ED Treatment Course - LABORATORY CBC & Chemistry Diagram: 09/14/18 14:04 09/14/18 14:04 - ADDITIONAL ORDERS Additional order review: Laboratory Results 09/14/18 14:04 Sodium 140 Potassium 4.1 Chloride 105 Carbon Dioxide 26 Anion Gap 9 BUN 13 Creatinine 0.5 L Creat Clearance w eGFR > 60 Random Glucose 148 H Calcium 8.7 Total Bilirubin 0.2 AST 34 ALT 27 Alkaline Phosphatase 163 H Total Protein 6.6 Albumin 2.8 L 09/14/18 14:04 RBC 4.22 MCV 74.4 L MCHC 29.7 L RDW 20.8 H MPV 8.8 Neutrophils % 66.9 Lymphocytes % 18.5 Monocytes % 8.5 Eosinophils % 5.0 H Basophils % 1.1 - Medications Given in the ED: ED Medications Discontinued Medications Generic Name Dose Route Start Last Admin Trade Name Freq PRN Reason Stop Dose Admin Ertapenem 1 gm/ Sodium 50 mls @ 50 mls/hr 09/14/18 13:31 09/14/18 14:50 Chloride IVPB 09/14/18 14:30 50 mls/hr ONCE ONE Administration Protocol Morphine Sulfate 4 mg 09/14/18 15:37 09/14/18 15:45 Morphine Injection - IVPUSH 09/14/18 15:38 4 mg ONCE ONE Administration Progress Note - Progress Note Progress Note: The patient is a 52 year old female with multiple medical issues who presented for evaluation of a painful patterson catheter. The patient presented 1 day ago for similar symptoms have was noted to have a UTI. Cultures are pending. The patient is pending CT abdomen/pelvis. Medical Decision Making - Medical Decision Making 09/15/18 20:18 CT abdomen/pelvis is unremarkable as read by our radiologist. The patient reports significant improvement in her symptoms after removal of the patient's pattesron. We will not treat her UTI currently as the patient is likely colonized due to the chronic patterson catheter and she is otherwise asymptomatic with normal lab results. We are comfortable discharging the patient home with primary care provider and urology follow up. We discussed the results, plan, and return precautions with the patient who voiced understanding and is agreeable with the plan. *DC/Admit/Observation/Transfer Diagnosis at time of Disposition: Urinary catheter complication Qualifiers: Encounter type: initial encounter Qualified Code(s): T83.9XXA - Unspecified complication of genitourinary prosthetic device, implant and graft, initial encounter - Discharge Dispostion Disposition: HOME Condition at time of disposition: Stable Decision to Admit order: No - Referrals Referrals: Anamaria Jaramillo MD [Staff Physician] - - Patient Instructions Printed Discharge Instructions: DI for Abdominal Pain-Adult Additional Instructions: Please return to the ER if you experience concerning or worsening symptoms including worsening difficulty breathing, weakness, or chest pain. Your lab results and CT scan were normal here in the ER. Please call to schedule a follow up appointment with your primary care provider within 2-3 days to discuss your ER visit and further management of your symptoms. Please keep your follow up appointment with Dr. Jaramillo tomorrow. - Post Discharge Activity
[2018-09-14 23:30] VITALS: BP 128/74; PULSE 96
== END 2018-09-14 23:30 | disposition home or self-care (01) ==
LOC: JER 12:35
PROC: 3E023NZ Introduction of Analgesics, Hypnotics, Sedatives into Muscle, Percutaneous Approach (ICD-10-PCS; principal; 2018-09-14)
PROC: 3E03329 Introduction of Other Anti-infective into Peripheral Vein, Percutaneous Approach (ICD-10-PCS; 2018-09-14)
PROC: 3E033NZ Introduction of Analgesics, Hypnotics, Sedatives into Peripheral Vein, Percutaneous Approach (ICD-10-PCS; 2018-09-14)
DX: T83.84XA Pain due to genitourinary prosthetic devices, implants and grafts, initial encounter (principal); D64.9 Anemia, unspecified; J44.9 Chronic obstructive pulmonary disease, unspecified; J45.909 Unspecified asthma, uncomplicated; I48.91 Unspecified atrial fibrillation; Z79.01 Long term (current) use of anticoagulants; E11.9 Type 2 diabetes mellitus without complications; Z79.4 Long term (current) use of insulin; I10 Essential (primary) hypertension; F41.9 Anxiety disorder, unspecified; Z86.69 Personal history of other diseases of the nervous system and sense organs; Z86.73 Personal history of transient ischemic attack (TIA), and cerebral infarction without residual deficits; Z85.42 Personal history of malignant neoplasm of other parts of uterus; Z93.0 Tracheostomy status
CPT/HCPCS: 36415; 74176-TC; 80053; 85025; 96365; 96372; 96375; 99281-25

== ENCOUNTER 2018-09-15 16:54 | Emergency (ER) | payer OTHER ==
--- NOTE | 2018-09-15 17:04 | PDOC ---
Attending Attestation - HPI HPI: 09/15/18 18:37 The patient is a 52 year old female with a significant past medical history of diabetes, COPD s/p trach, atrial fibrillation, stroke, asthma, depression, uterine cancer s/p cystectomy, chronic back pain, migraines, osteomyelitis, small bowel resection, and anxiety who presents to the ER with complaints of nausea and vomiting since her discharge from this hospital early this morning. She reports about 5 nonbilious/nonbloody episodes of emesis today. Secondarily, she also reports pain with urination. The patient denies chest pain, shortness of breath, headache and dizziness. The patient denies fever, chills, vomit, diarrhea and constipation. The patient denies frequency, urgency and hematuria. Allergies: oxycodone, aspirin, fentanyl, ibuprofen, blueberry, - Physicial Exam PE: 09/15/18 18:38 Constitutional: Awake, alert, oriented. No acute distress. Head: Normocephalic. Atraumatic Eyes: PERRL. EOMI. Conjunctivae are not pale. ENT: +Trach intact. Mucous membranes are moist and intact. Posterior pharynx without exudates or erythema. Uvula midline. Neck: Supple. Full ROM. No lymphadenopathy. Cardiovascular: Regular rate. Regular rhythm. S1, S2 regular. Distal pulses are 2+ and symmetric. Pulmonary/Chest: No evidence of respiratory distress. Clear to auscultation bilaterally No wheezing, rales or rhonchi. Abdominal: Soft and non-distended. There is no tenderness. No rebound, guarding or rigidity. No organomegaly. No palpable masses. Good bowel sounds. Back: No CVA tenderness. Musculoskeletal: No edema. No cyanosis. No clubbing. Full range of motion in all extremities. Nocalf tenderness. Radial/pedal pulses are intact and 2+ bilaterally Skin: Skin is warm and dry. No petechiae. No purpura. Neurological: Alert and oriented to person, place, and time. Cranial nerves II- XII are grossly intact. Normal speech. Strength is grossly symmetric. No sensory deficits. Psychiatric: Good eye contact. Normal interaction, affect and behavior. - Medical Decision Making 09/15/18 18:37 Documentation prepared by Celina Tatum, acting as medical voucher clerk for Mariama Nicholas DO <Celina Tatum - Last Filed: 09/15/18 18:37> - Resident Resident Name: Dinh Grullon - ED Attending Attestation I have performed the following: I have examined & evaluated the patient, The case was reviewed & discussed with the resident, I agree w/resident's findings & plan, Exceptions are as noted - Medical Decision Making 09/15/18 17:04 I, Dr. Mariama Nicholas, DO, attest that this document has been prepared under my direction and personally reviewed by me in its entirety. I further attest, that it accurately reflects all work, treatment, procedures and medical decision -making performed by me. 09/15/18 19:39 a/p: 52yo female with L sided abd pain, n/v and dysuria -pt with patterson removed yesterday. -pt with yeast in the UA yesterday -no f/c -no cp/sob -states abd pain has been present x 1.5 years -underwent ct imaging yesterday that was negative -bedside ultrasound of the gallbladder was negative -ua is improving from yesterday after having catheter removed -resident discussed the case with Dr Williamson who states not to treat yeast in the urine at this time. -will give nausea meds -pt drinking water and hydrating -will monitor and reassess -labs reviewed 09/15/18 21:23 pt with chronic tachycardia on all prior visits pt states feeling better stable for d/c to home pt eating and drinking and tolerating po in the ED <Mariama Nicholas - Last Filed: 09/15/18 21:24> Heart Score/ECG Review - ECG Intrepretation Comment:: 09/15/18 20:53 sinus at 117, nl axis, nl interval, no acute st/t wave findings <Mariama Nicholas - Last Filed: 09/15/18 21:24>
[2018-09-15] MEDS ORDERED: ONDANSETRON *ODT* 4 MG TABLET SL ONE ×2 (17:20→21:03)
[2018-09-15] MEDS ORDERED: morphine CARPU-JECT 4 MG/1 ML DISP.SYRIN IM ONE (17:39)
[2018-09-15] MEDS ORDERED: morphine SULFATE 4 MG/ML VIAL ONE (17:53)
[2018-09-15] MEDS ORDERED: ONDANSETRON *ODT* 4 MG TABLET ONE ×2 (17:53→21:49)
--- NOTE | 2018-09-15 17:53 | PDOC ---
History of Present Illness - General Chief Complaint: Nausea/Vomiting Stated Complaint: NAUSEA, VOMITING Time Seen by Provider: 09/15/18 17:00 History Source: Patient Exam Limitations: No Limitations - History of Present Illness Initial Comments: 09/15/18 17:49 The patient is a 52F with a PMH of diabetes, COPD s/p trach, atrial fibrillation , stroke, asthma, depression, uterine cancer s/p cystectomy, chronic back pain, migraines, osteomyelitis, small bowel resection, and anxiety who presents to the ER with complaints of nausea and vomiting. She states that she has vomited 5 times since her discharge, all NBNB. The patient was discharged from our facility earlier this morning and states that she has since had nausea, vomiting , and dysuria. She denies fevers, chills, CP, SOB, and abdominal pain. Past History - Past Medical History Allergies/Adverse Reactions: Allergies Allergy/AdvReac Type Severity Reaction Status Date / Time oxycodone [Oxycodone] Allergy Severe Nausea Verified 09/13/18 16:48 oxycodone HCl [From Percocet] Allergy Severe Nausea Verified 09/13/18 16:48 aspirin Allergy Mild Verified 09/13/18 16:48 blueberry [Blueberry] Allergy Mild Swelling Verified 09/13/18 16:48 fentanyl Allergy Mild Vomiting Verified 09/13/18 16:48 ibuprofen Allergy Swelling Verified 09/13/18 16:48 Home Medications: Ambulatory Orders Albuterol Sulfate Inhaler - [Ventolin HFA Inhaler -] 2 puff IH Q4H PRN #0 inhaler 11/29/16 Acetaminophen [Tylenol .Regular Strength -] 650 mg PO Q6H PRN #0 tablet Apixaban [Eliquis -] 5 mg PO BID tablet 04/29/17 Baclofen 20 mg PO TID 07/09/18 Diltiazem HCl [Diltiazem 24Hr Cd] 240 mg PO BID 07/09/18 Levocetirizine Dihydrochloride 5 mg PO HS 07/09/18 Levothyroxine [Synthroid -] 50 mcg PO DAILY 07/09/18 Rosuvastatin Calcium [Crestor] 10 mg PO DAILY 07/09/18 Venlafaxine HCl ER [Effexor Xr -] 75 mg PO DAILY 07/09/18 Famotidine 40 mg PO BID 08/07/18 Hydromorphone HCl 4 mg PO Q4H 08/07/18 Mirabegron [Myrbetriq] 50 mg PO DAILY 08/07/18 Montelukast Na [Singulair -] 10 mg PO HS 08/07/18 Alprazolam [Xanax] 0.25 mg PO TID #15 tablet MDD 3 08/15/18 Doxepin HCl [Sinequan -] 25 mg PO DAILY #30 capsule 08/15/18 Linaclotide [Linzess] 145 mcg PO DAILY #30 cap 08/15/18 Pantoprazole Sodium [Protonix -] 40 mg PO DAILY #30 tablet.ec 08/15/18 Topiramate [Topamax -] 100 mg PO DAILY #30 tablet 08/15/18 Vortioxetine Hydrobromide [Trintellix] 20 mg PO DAILY #30 tablet 08/15/18 Gabapentin [Neurontin -] 500 mg PO Q8H #21 capsule 08/30/18 Insulin (Novolog) [Novolog -] 0 units SQ AC 08/30/18 Ondansetron [Zofran -] 8 mg PO TID 08/30/18 Zolpidem Tartrate 10 mg PO HS MDD 1 09/04/18 Gabapentin [Neurontin -] 500 mg PO TID #90 capsule 09/08/18 Nitrofurantoin Monohyd/M-Cryst [Macrobid -] 100 mg PO BID #14 capsule 09/08/18 Ondansetron [Ondansetron Odt] 8 mg PO TID #90 tab.rapdis 09/09/18 Anemia: Yes Asthma: Yes (COPD, trach #8) Cancer: Yes (UTERINE) Cardiac Disorders: Yes (A-fib) CVA: No COPD: Yes CHF: No Dementia: No Diabetes: Yes GI Disorders: Yes (colitis, SB resection, GERD) Disorders: Yes (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) HTN: Yes Hypercholesterolemia: Yes Liver Disease: No Psychiatric Problems: Yes (ANXIETY) Seizures: Yes (5 yrs ago had a seizure ( zofran and reglan given together as per patient) Thyroid Disease: No - Surgical History Abdominal Surgery: Yes (BOWEL RESECTION) Appendectomy: Yes (removed 1998) Cardiac Surgery: No Cholecystectomy: No Lung Surgery: No Neurologic Surgery: No Orthopedic Surgery: Yes (Back Sx T7,6) - Immunization History Td Vaccination: Yes TDAP Vaccination: Yes Immunization Up to Date: Yes - Suicide/Smoking/Psychosocial Hx Smoking Status: No Smoking History: Unknown if ever smoked Have you smoked in the past 12 months: No Number of Cigarettes Smoked Daily: 3 If you are a former smoker, when did you quit?: 2014 'Breaking Loose' booklet given: 03/12/15 Hx Alcohol Use: No Drug/Substance Use Hx: No Substance Use Type: None Hx Substance Use Treatment: No Review of Systems - Review of Systems Able to Perform ROS?: Yes Comments:: 09/15/18 17:51 GENERAL/CONSTITUTIONAL: No fever or chills. No weakness. HEAD, EYES, EARS, NOSE AND THROAT: No change in vision. No ear pain or discharge. No sore throat. CARDIOVASCULAR: No chest pain, palpitations, or lightheadedness. RESPIRATORY: No cough, wheezing, shortness of breath, or hemoptysis. GASTROINTESTINAL: Positive for nausea and vomiting. No diarrhea, constipation, or abdominal pain. GENITOURINARY: Positive for dysuria. No frequency, hematuria, or change in urination. MUSCULOSKELETAL: No joint or muscle swelling or pain. No neck or back pain. SKIN: No rash or lesions. NEUROLOGIC: No headache, numbness, tingling, focal weakness, loss of consciousness, or change in strength/sensation. Is the patient limited Lao proficient: No *Physical Exam - Physical Exam Comments: 09/15/18 17:52 GENERAL: Well developed, well nourished. Awake and alert. No acute distress. HEENT: Normocephalic, atraumatic. Hearing grossly normal. Moist mucous membranes. PERRLA, EOMI. No conjunctival pallor. Sclera are non-icteric. NECK: Supple. Trach present. CARDIOVASCULAR: Regular rate and rhythm. No murmurs, rubs, or gallops. PULMONARY: No evidence of respiratory distress. Lungs clear to auscultation bilaterally. No wheezing, rales or rhonchi. ABDOMINAL: Soft. Mild tenderness to deep palpation over LUQ. Non-distended. No rebound or guarding. GENITOURINARY: No CVA tenderness bilaterally. MUSCULOSKELETAL: Normal range of motion at all joints. No bony deformities or tenderness. EXTREMITIES: No cyanosis. No clubbing. No edema. No calf tenderness or swelling. SKIN: Warm and dry. Normal capillary refill. No rashes. No jaundice. NEUROLOGICAL: Alert, awake, appropriate. Cranial nerves 2-12 grossly intact. Normal speech. PSYCHIATRIC: Cooperative. Good eye contact. Appropriate mood and affect. ED Treatment Course - LABORATORY CBC & Chemistry Diagram: 09/15/18 18:41 09/15/18 18:41 Medical Decision Making - Medical Decision Making 09/15/18 17:53 The patient is a 52F with an extensive PMH who presents to the ER with complaints of nausea, vomiting, and dysuria. Will straight cath for UA. Will draw labs to assess electrolyte status. Pt did not follow up with her urologist today due to pain. I will address pain in ER and encourage f/u with urology. 09/15/18 18:41 Labs sent. 09/15/18 19:34 Labs WNL. Urine shows 1+ LE with many WBC's. However, this is improved from 2 days ago. Case d/w ID and no treatment is necessary as the patient is otherwise hemodynamically stable. Pt tolerating PO. Will reassess after fluid challenge. 09/15/18 21:20 Pt is tolerating PO. Denies nausea but is continuing to complain of pain. Pain meds given x 2. Recent abd CT negative. Pt states she will f/u with urologist tomorrow. Will d/c home with PCP f/u. *DC/Admit/Observation/Transfer Diagnosis at time of Disposition: UTI (urinary tract infection) Qualifiers: Urinary tract infection type: site unspecified Hematuria presence: without hematuria Qualified Code(s): N39.0 - Urinary tract infection, site not specified - Discharge Dispostion Disposition: HOME Condition at time of disposition: Stable Decision to Admit order: No - Referrals Referrals: Manolo Jaquez [Primary Care Provider] - Anamaria Jaramillo MD [Staff Physician] - - Patient Instructions Printed Discharge Instructions: Urinary Tract Infection Additional Instructions: Please follow up with your primary care physician in 2-3 days. Please return to the ER if you have any signs or symptoms of chest pain, shortness of breath, uncontrollable fever, chills, nausea, vomiting, numbness, tingling, or weakness in any part of your body, changes in vision, or slurred speech. Please take your medications as prescribed. Please return to the ER if symptoms persist, worsen, or new symptoms arise. - Post Discharge Activity
[2018-09-15 18:07] VITALS: BMI 24.2
[2018-09-15 18:33] LABS: URINE APPEARANCE CLOUDY; URINE BILIRUBIN NEGATIVE (<2.0 mg/dL); URINE COLOR AMBER; URINE GLUCOSE (UA) NEGATIVE (NEGATIVE); URINE KETONE 1+ (NEGATIVE); URINE LEUK ESTERASE 1+ (NEGATIVE); URINE NITRITE NEGATIVE (NEGATIVE); URINE PROTEIN 2+ (NEGATIVE); URINE UROBILINOGEN 4.0 E.U/dl mg/dL (0.2-1.0)
[2018-09-15 18:42] LABS: EPI CELLS RARE /HPF (FEW); URINE MUCUS MANY
[2018-09-15 18:51] LABS: BASO % 0.9 % (0-2.0); EOS % 3.2 % (0-4.5); HEMATOCRIT 31.6 % (32.4-45.2); HEMOGLOBIN 9.3 GM/dL (10.7-15.3); LYMPH % 17.5 % (8-40); MCH 21.9 pg (25.7-33.7); MCHC 29.6 g/dl (32.0-36.0); MEAN CELL VOLUME 74.1 fl (80-96); MEAN PLT VOLUME 8.7 fl (7.5-11.1); MONO % 10.7 % (3.8-10.2); NEUT % 67.7 % (42.8-82.8); PLATELET COUNT 404 K/MM3 (134-434); RBC 4.26 M/mm3 (3.60-5.2); RDW 20.1 % (11.6-15.6); WHITE BLOOD COUNT 9.1 K/mm3 (4.0-10.0)
[2018-09-15 19:24] LABS: ALBUMIN 2.9 g/dl (3.4-5.0); ALK PHOS 171 U/L (45-117); ANION GAP 8 MMOL/L (8-16); BILIRUBIN,TOTAL 0.3 mg/dL (0.2-1); BLOOD UREA NITROGEN 14 mg/dL (7-18); CALCIUM 8.4 mg/dL (8.5-10.1); CHLORIDE 102 mmol/L (98-107); CO2 30 mmol/L (21-32); CREATININE 0.6 mg/dL (0.55-1.3); GLUCOSE,RANDOM 162 mg/dL (74-106); POTASSIUM 4.2 mmol/L (3.5-5.1); SGOT/AST 19 U/L (15-37); SGPT/ALT 24 U/L (13-61); SODIUM 140 mmol/L (136-145); TOT PROT 6.5 g/dl (6.4-8.2)
[2018-09-15] MEDS ORDERED: PHENAZOPYRIDINE HCL 100 MG TABLET (FP) PO ONE (19:36)
[2018-09-15] MEDS ORDERED: ACETAMINOPHEN 325 MG TABLET (FP) PO ONE (19:37)
[2018-09-15] MEDS ORDERED: ACETAMINOPHEN 325 MG TABLET (FP) ONE (19:41)
[2018-09-15] MEDS ORDERED: PHENAZOPYRIDINE HCL 100 MG TABLET (FP) ONE (19:42)
[2018-09-15] MEDS ORDERED: ALPRAZolam 0.25 MG TABLET PO ONE (20:12)
[2018-09-15] MEDS ORDERED: ALPRAZolam 0.25 MG TABLET ONE (20:36)
[2018-09-15] MEDS ORDERED: DOCUSATE SODIUM 100 MG CAPSULE (FP) PO ONE ×2 (22:06→22:17)
[2018-09-15 22:36] VITALS: BP 119/59; PULSE 101; TEMP 99.2
--- NOTE | 2018-09-16 12:16 | EKG ---
Test Reason : Blood Pressure : / mmHG Vent. Rate : 117 BPM Atrial Rate : 117 BPM P-R Int : 146 ms QRS Dur : 080 ms QT Int : 320 ms P-R-T Axes : 037 -05 041 degrees QTc Int : 446 ms SINUS TACHYCARDIA CANNOT RULE OUT ANTERIOR INFARCT , AGE UNDETERMINED ABNORMAL ECG WHEN COMPARED WITH ECG OF 04-SEP-2018 13:08, NO SIGNIFICANT CHANGE WAS FOUND Confirmed by NICK CODY MD ([id number]) on 09/16/2018 12:16:01 PM Referred By: Confirmed By:NICK CODY MD
[2018-09-16] MEDS ORDERED: DOCUSATE SODIUM 100 MG CAPSULE (FP) PO ONE (21:03)
== END 2018-09-15 23:59 | disposition home or self-care (01) ==
LOC: JER 16:54
DX: J45.901 Unspecified asthma with (acute) exacerbation (principal); R05 Cough
CPT/HCPCS: 36415; 71045-TC-FY; 80053; 81003; 81015; 84484; 85025; 93005; 93010; 99282-25; Q0162

== ENCOUNTER 2018-09-18 15:18 | Inpatient (IN) | payer OTHER ==
[2018-09-18 16:17] LABS: BASO % 0.8 % (0-2.0); EOS % 4.6 % (0-4.5); HEMATOCRIT 28.3 % (32.4-45.2); HEMOGLOBIN 8.4 GM/dL (10.7-15.3); LYMPH % 15.9 % (8-40); MCH 21.7 pg (25.7-33.7); MCHC 29.6 g/dl (32.0-36.0); MEAN CELL VOLUME 73.4 fl (80-96); MEAN PLT VOLUME 8.3 fl (7.5-11.1); MONO % 11.1 % (3.8-10.2); NEUT % 67.6 % (42.8-82.8); PLATELET COUNT 343 K/MM3 (134-434); RBC 3.85 M/mm3 (3.60-5.2); RDW 20.7 % (11.6-15.6)
--- NOTE | 2018-09-18 16:21 | PDOC ---
History of Present Illness - General Chief Complaint: Nausea/Vomiting Stated Complaint: SICK Time Seen by Provider: 09/18/18 15:30 History Source: Patient, Care Provider - History of Present Illness Initial Comments: 09/18/18 16:15 52-year-old female brought in by EMS for complaints of decreased by mouth intake , nausea, and diarrhea with vomiting the past few days. Patient states has had no fever, difficulty breathing, abdominal pain, decreased urine output, headache , or chest pain. Patient is oxygen dependent with a trach and has a home health aide who denies vomiting or diarrhea today but states had 3 episodes of vomiting yesterday and one episode of diarrhea yesterday. Timing/Duration: intermittent Severity: moderate Associated Symptoms: reports: loss of appetite, nausea/vomiting, weakness Past History - Travel Traveled outside of the country in the last 30 days: No - Past Medical History Allergies/Adverse Reactions: Allergies Allergy/AdvReac Type Severity Reaction Status Date / Time oxycodone [Oxycodone] Allergy Severe Nausea Verified 09/18/18 15:33 oxycodone HCl [From Percocet] Allergy Severe Nausea Verified 09/18/18 15:33 aspirin Allergy Mild Verified 09/18/18 15:33 blueberry [Blueberry] Allergy Mild Swelling Verified 09/18/18 15:33 fentanyl Allergy Mild Vomiting Verified 09/18/18 15:33 ibuprofen Allergy Swelling Verified 09/18/18 15:33 Home Medications: Ambulatory Orders Albuterol Sulfate Inhaler - [Ventolin HFA Inhaler -] 2 puff IH Q4H PRN #0 inhaler 11/29/16 Acetaminophen [Tylenol .Regular Strength -] 650 mg PO Q6H PRN #0 tablet Apixaban [Eliquis -] 5 mg PO BID tablet 04/29/17 Baclofen 20 mg PO TID 07/09/18 Diltiazem HCl [Diltiazem 24Hr Cd] 240 mg PO BID 07/09/18 Levocetirizine Dihydrochloride 5 mg PO HS 07/09/18 Levothyroxine [Synthroid -] 50 mcg PO DAILY 07/09/18 Rosuvastatin Calcium [Crestor] 10 mg PO DAILY 07/09/18 Venlafaxine HCl ER [Effexor Xr -] 75 mg PO DAILY 07/09/18 Famotidine 40 mg PO BID 08/07/18 Hydromorphone HCl 4 mg PO Q4H 08/07/18 Mirabegron [Myrbetriq] 50 mg PO DAILY 08/07/18 Montelukast Na [Singulair -] 10 mg PO HS 08/07/18 Alprazolam [Xanax] 0.25 mg PO TID #15 tablet MDD 3 08/15/18 Doxepin HCl [Sinequan -] 25 mg PO DAILY #30 capsule 08/15/18 Linaclotide [Linzess] 145 mcg PO DAILY #30 cap 08/15/18 Pantoprazole Sodium [Protonix -] 40 mg PO DAILY #30 tablet.ec 08/15/18 Topiramate [Topamax -] 100 mg PO DAILY #30 tablet 08/15/18 Vortioxetine Hydrobromide [Trintellix] 20 mg PO DAILY #30 tablet 08/15/18 Gabapentin [Neurontin -] 500 mg PO Q8H #21 capsule 08/30/18 Insulin (Novolog) [Novolog -] 0 units SQ AC 08/30/18 Ondansetron [Zofran -] 8 mg PO TID 08/30/18 Zolpidem Tartrate 10 mg PO HS MDD 1 09/04/18 Gabapentin [Neurontin -] 500 mg PO TID #90 capsule 09/08/18 Nitrofurantoin Monohyd/M-Cryst [Macrobid -] 100 mg PO BID #14 capsule 09/08/18 Ondansetron [Ondansetron Odt] 8 mg PO TID #90 tab.rapdis 09/09/18 Phenazopyridine HCl [Pyridium -] 100 mg PO ONCE #6 tablet 09/15/18 Fluconazole [Diflucan -] 200 mg PO DAILY #7 tablet 09/18/18 Anemia: Yes Asthma: Yes (COPD, trach #8) Cancer: Yes (UTERINE) Cardiac Disorders: Yes (A-fib) CVA: No COPD: Yes CHF: No Dementia: No Diabetes: Yes GI Disorders: Yes (colitis, SB resection, GERD) Disorders: Yes (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) HTN: Yes Hypercholesterolemia: Yes Liver Disease: No Psychiatric Problems: Yes (ANXIETY) Seizures: Yes (5 yrs ago had a seizure ( zofran and reglan given together as per patient) Thyroid Disease: No - Surgical History Abdominal Surgery: Yes (BOWEL RESECTION) Appendectomy: Yes (removed 1998) Cardiac Surgery: No Cholecystectomy: No Lung Surgery: No Neurologic Surgery: No Orthopedic Surgery: Yes (Back Sx T7,6) - Immunization History Td Vaccination: Yes TDAP Vaccination: Yes Immunization Up to Date: Yes - Suicide/Smoking/Psychosocial Hx Smoking Status: No Smoking History: Former smoker Have you smoked in the past 12 months: No Number of Cigarettes Smoked Daily: 3 If you are a former smoker, when did you quit?: 2014 Information on smoking cessation initiated: No 'Breaking Loose' booklet given: 03/12/15 Hx Alcohol Use: No Drug/Substance Use Hx: No Substance Use Type: None Hx Substance Use Treatment: No Patient Lives Alone: No Review of Systems - Review of Systems Able to Perform ROS?: No Constitutional: Yes: Weakness HEENTM: No: Symptoms Reported Respiratory: No: Symptoms reported Cardiac (ROS): No: Symptoms Reported ABD/GI: Yes: Diarrhea, Nausea, Poor Appetite, Vomiting : No: Symptoms Reported Musculoskeletal: No: Symptoms Reported Integumentary: No: Symptoms Reported Neurological: No: Symptoms reported Psychiatric: Yes: Anxiety Endocrine: No: Symptoms Reported Hematologic/Lymphatic: No: Symptoms Reported *Physical Exam - Vital Signs Last Vital Signs Temp Pulse Resp BP Pulse Ox 98.3 F 119 H 20 113/64 97 09/18/18 15:31 09/18/18 15:31 09/18/18 15:31 09/18/18 15:31 09/18/18 15:31 - Physical Exam General Appearance: Yes: Nourished, Appropriately Dressed. No: Apparent Distress HEENT: positive: AYESHA, Pharynx Normal (dry). negative: Pale Conjunctivae Neck: positive: Supple (trach site intact) Respiratory/Chest: positive: Lungs Clear, Normal Breath Sounds. negative: Respiratory Distress, Accessory Muscle Use Cardiovascular: positive: Regular Rhythm, Tachycardia. negative: Murmur Extremity: positive: Normal Capillary Refill. negative: Pedal Edema Integumentary: positive: Normal Color, Dry, Warm Neurologic: negative: Normal Mood/Affect (anxious) Heart Score/ECG Review - ECG Intrepretation Rhythm: Regular Rhythm (sinus tachycardia. Rate 114. No ST elevation or depression. Intervals are reg. QTc 443 ms) ED Treatment Course - LABORATORY CBC & Chemistry Diagram: 09/18/18 16:07 09/18/18 16:07 Medical Decision Making - Medical Decision Making 09/18/18 16:26 Patient with subjective complaints of nausea vomiting decreased appetite and diarrhea. As per home health aid patient has been tolerating Gatorade juice and crackers today and had no episodes of the above. Patient did have 3 episodes of vomiting yesterday with one episode of brown watery stool. Patient states supposed to be on Diflucan for yeast in her urine but did not begin it yet. Patient ordered for Diflucan IV along with labs, urine and urine culture and IV fluids. 09/18/18 16:44 Laboratory Tests 09/18/18 16:07 Sodium 137 Potassium 3.4 L Chloride 99 Carbon Dioxide 29 Anion Gap 9 BUN 6 L Random Glucose 208 H Calcium 8.4 L Magnesium 1.6 L Total Bilirubin 0.2 AST 25 ALT 22 Alkaline Phosphatase 172 H Total Protein 6.0 L Albumin 2.4 L Lipase 75 Treated with 2 g of magnesium along with 40 mg of K-Dur. 09/18/18 16:56 Laboratory Tests 09/18/18 16:07 Lactic Acid 3.5 H* Rectal temperature ordered. Second liter of normal saline ordered. Second lactic acid ordered. Blood cultures added and chest x-ray ordered. 09/18/18 17:11 Rectal temperature 100.0. 09/18/18 17:26 Patient with ESBL on previous urine culture and from 2 weeks ago. Patient ordered for Zosyn. Dr. Jaquez admits to Dr. sanchez until 5. Now admits to hospitalist *DC/Admit/Observation/Transfer Diagnosis at time of Disposition: Elevated lactic acid level, UTI (urinary tract infection) - Discharge Dispostion Decision to Admit order: Yes - Referrals - Patient Instructions - Post Discharge Activity
[2018-09-18 16:41] LABS: ALBUMIN 2.4 g/dl (3.4-5.0); ALK PHOS 172 U/L (45-117); ANION GAP 9 MMOL/L (8-16); BILIRUBIN,TOTAL 0.2 mg/dL (0.2-1); BLOOD UREA NITROGEN 6 mg/dL (7-18); CALCIUM 8.4 mg/dL (8.5-10.1); CHLORIDE 99 mmol/L (98-107); CO2 29 mmol/L (21-32); CREATININE 0.7 mg/dL (0.55-1.3); GLUCOSE,RANDOM 208 mg/dL (74-106); LIPASE 75 U/L (73-393); MAGNESIUM 1.6 mg/dL (1.8-2.4); POTASSIUM 3.4 mmol/L (3.5-5.1); SGOT/AST 25 U/L (15-37); SGPT/ALT 22 U/L (13-61); SODIUM 137 mmol/L (136-145)
[2018-09-18] MEDS ORDERED: POTASSIUM CHLORIDE TABS 20 MEQ TABLET.ER (FP) PO ONE ×3 (16:43→23:15)
[2018-09-18] MEDS ORDERED: MAGNESIUM SULF 50% (8.12 MEQ/2 ML-1 GM VIAL) IVPB ONE (16:43)
[2018-09-18] MEDS ORDERED: SODIUM CHLORIDE 1,000 ML IV STA ×2 (16:57→17:11)
[2018-09-18] MEDS ORDERED: FLUCONAZOLE 200 MG/NS 100 ML IVPB ONE (17:09)
[2018-09-18] MEDS ORDERED: morphine CARPU-JECT 2 MG/1 ML DISP.SYRIN IVPUSH ONE (17:16)
[2018-09-18] MEDS ORDERED: PIPERACILLIN/TAZOB 4.5 GM 4.5 GM in DEXTROSE 5%-WATER 100 ML IVPB ONE (17:19)
[2018-09-18] MEDS ORDERED: morphine SULFATE 4 MG/ML VIAL ONE (17:31)
[2018-09-18 17:32] LABS: VENOUS PC02 55.5 mmHg (38-52); VENOUS PH 7.35 (7.32-7.42); VENOUS PO2 46.1 mmHg (28-48)
[2018-09-18] MEDS ORDERED: PIPERACILLIN/TAZOB 4.5 GM 4.5 GM/100 ML BAG IVPB ONE (17:33)
[2018-09-18 17:36] LABS: ANISOCYTOSIS 2+; MACROCYTOSIS 0; OVALOCYTE 2+; PLATELET ESTIMATE NORMAL; TEAR DROP CELLS 1+
[2018-09-18 18:47] LABS: URINE APPEARANCE CLEAR; URINE BILIRUBIN NEGATIVE (<2.0 mg/dL); URINE COLOR LTYELLOW; URINE GLUCOSE (UA) NEGATIVE (NEGATIVE); URINE KETONE NEGATIVE (NEGATIVE); URINE LEUK ESTERASE 1+ (NEGATIVE); URINE NITRITE NEGATIVE (NEGATIVE); URINE PROTEIN NEGATIVE (NEGATIVE); URINE UROBILINOGEN NEGATIVE mg/dL (0.2-1.0)
[2018-09-18 18:53] LABS: EPI CELLS RARE /HPF (FEW)
[2018-09-18] MEDS ORDERED: GABAPENTIN 300 MG CAPSULE (FP) PO SCH (20:45)
--- NOTE | 2018-09-18 20:47 | HP ---
Admitting History and Physical - Primary Care Physician PCP: Kaz Goel - Admission Chief Complaint: Nausea, Vomiting, Diarrhea History of Present Illness: This is a 52 y/o woman who presents to the ED with complaints of N/V/D x 2 days now resolved, but reports having a decreased appetite and generalized malaise. Patient reports that she had stomach flu-like symptoms as well. Patient denies fever, dizziness, COX, CP, dysuria. History Source: Patient, Caregiver Limitations to Obtaining History: No Limitations - Past Medical History Cardiovascular: Yes: AFIB (Paroxysmal), HTN, Hyperlipdemia Pulmonary: Yes: Asthma, COPD, O2 Dependent, Previously Intubated Gastrointestinal: Yes: GI Bleed Renal/: Yes: Cancer (Uterine), Other ([place]ENTS/[place] in the past) Heme/Onc: Yes: Other (BCA, Uterine Ca) Infectious Disease: Yes: C-Diff (june 2014), Other (Osteomyelitis of thoracic spine) Psych: Yes: Anxiety, Bipolar, Depression Musculoskeletal: Yes: Chronic low back pain, Other (multiple vertebral fractures ) Endocrine: Yes: Diabetes Mellitus, Hypothyroidism - Past Surgical History Past Surgical History: Yes: Appendectomy, Colectomy (By description, right colon resection with anastamosis noted on colonoscopy 2013), Hysterectomy (ADE/ BSO), Stent - Smoking History Smoking history: Former smoker Have you smoked in the past 12 months: No Aproximately how many cigarettes per day: 3 If you are a former smoker, when did you quit?: 2015 - Alcohol/Substance Use Hx Alcohol Use: No - Social History 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) History of Recent Travel: No Home Medications - Allergies Allergies/Adverse Reactions: Allergies Allergy/AdvReac Type Severity Reaction Status Date / Time oxycodone [Oxycodone] Allergy Severe Nausea Verified 09/18/18 15:33 oxycodone HCl [From Percocet] Allergy Severe Nausea Verified 09/18/18 15:33 aspirin Allergy Mild Verified 09/18/18 15:33 blueberry [Blueberry] Allergy Mild Swelling Verified 09/18/18 15:33 fentanyl Allergy Mild Vomiting Verified 09/18/18 15:33 ibuprofen Allergy Swelling Verified 09/18/18 15:33 - Home Medications Home Medications: Ambulatory Orders Albuterol Sulfate Inhaler - [Ventolin HFA Inhaler -] 2 puff IH Q4H PRN #0 inhaler 11/29/16 Acetaminophen [Tylenol .Regular Strength -] 650 mg PO Q6H PRN #0 tablet Apixaban [Eliquis -] 5 mg PO BID tablet 04/29/17 Baclofen 20 mg PO TID 07/09/18 Diltiazem HCl [Diltiazem 24Hr Cd] 240 mg PO BID 07/09/18 Levocetirizine Dihydrochloride 5 mg PO HS 07/09/18 Levothyroxine [Synthroid -] 50 mcg PO DAILY 07/09/18 Rosuvastatin Calcium [Crestor] 10 mg PO DAILY 07/09/18 Venlafaxine HCl ER [Effexor Xr -] 75 mg PO DAILY 07/09/18 Famotidine 40 mg PO BID 08/07/18 Hydromorphone HCl 4 mg PO Q4H 08/07/18 Mirabegron [Myrbetriq] 50 mg PO DAILY 08/07/18 Montelukast Na [Singulair -] 10 mg PO HS 08/07/18 Alprazolam [Xanax] 0.25 mg PO TID #15 tablet MDD 3 08/15/18 Doxepin HCl [Sinequan -] 25 mg PO DAILY #30 capsule 08/15/18 Linaclotide [Linzess] 145 mcg PO DAILY #30 cap 08/15/18 Pantoprazole Sodium [Protonix -] 40 mg PO DAILY #30 tablet.ec 08/15/18 Topiramate [Topamax -] 100 mg PO DAILY #30 tablet 08/15/18 Vortioxetine Hydrobromide [Trintellix] 20 mg PO DAILY #30 tablet 08/15/18 Gabapentin [Neurontin -] 500 mg PO Q8H #21 capsule 08/30/18 Insulin (Novolog) [Novolog -] 0 units SQ AC 08/30/18 Ondansetron [Zofran -] 8 mg PO TID 08/30/18 Zolpidem Tartrate 10 mg PO HS MDD 1 09/04/18 Gabapentin [Neurontin -] 500 mg PO TID #90 capsule 09/08/18 Nitrofurantoin Monohyd/M-Cryst [Macrobid -] 100 mg PO BID #14 capsule 09/08/18 Ondansetron [Ondansetron Odt] 8 mg PO TID #90 tab.rapdis 09/09/18 Phenazopyridine HCl [Pyridium -] 100 mg PO ONCE #6 tablet 09/15/18 Fluconazole [Diflucan -] 200 mg PO DAILY #7 tablet 09/18/18 Family Disease History - Family Disease History Family Disease History: Diabetes: Mother (Alive: heart surgery), Heart Disease: Mother, [place]: Father (: leukemia), Other: Brother (2,Healthy), Sister (1, Healthy) Review of Systems - Review of Systems Constitutional: reports: Loss of Appetite Eyes: reports: No Symptoms HENT: reports: No Symptoms Neck: reports: No Symptoms Cardiovascular: reports: No Symptoms Respiratory: reports: No Symptoms Gastrointestinal: reports: Diarrhea, Nausea, Vomiting. denies: Melena, Vomiting Blood Breasts: reports: No Symptoms Reported Musculoskeletal: reports: No Symptoms Integumentary: reports: No Symptoms Neurological: reports: No Symptoms Endocrine: reports: No Symptoms Hematology/Lymphatic: reports: No Symptoms Psychiatric: reports: No Symptoms Physical Examination Vital Signs: Vital Signs Temperature 100.0 F H 09/18/18 17:29 Pulse Rate 100 H 09/18/18 19:17 Respiratory Rate 20 09/18/18 19:17 Blood Pressure 120/73 09/18/18 19:17 O2 Sat by Pulse Oximetry (%) 98 09/18/18 19:18 Constitutional: Yes: No Distress, Calm, Obese Eyes: Yes: WNL, Conjunctiva Clear, EOM Intact, PERRL HENT: Yes: WNL, Atraumatic, Normocephalic Neck: Yes: Supple, Other (trach with collar) Cardiovascular: Yes: Pulse Irregular, S1, S2 Respiratory: Yes: Wheezes (bases), Other (trach with collar) Gastrointestinal: Yes: Normal Bowel Sounds, Soft, Abdomen, Obese, Tenderness ( LMQ) Renal/: Yes: WNL Breast(s): Yes: WNL Musculoskeletal: Yes: WNL Extremities: Yes: WNL Edema: No Peripheral Pulses WNL: Yes Integumentary: Yes: Tattoos Neurological: Yes: WNL, Alert, Oriented, Cran Nerves II-XII Intact ...Motor Strength: WNL Psychiatric: Yes: WNL, Alert, Oriented Labs: CBC, BMP 09/18/18 16:07 09/18/18 16:07 Imaging - Results Chest X-ray: Image Reviewed EKG: Image Reviewed Problem List - Problems (1) Sepsis Code(s): A41.9 - SEPSIS, UNSPECIFIED ORGANISM (2) UTI (urinary tract infection) Code(s): N39.0 - URINARY TRACT INFECTION, SITE NOT SPECIFIED (3) Elevated lactic acid level Code(s): R79.89 - OTHER SPECIFIED ABNORMAL FINDINGS OF BLOOD CHEMISTRY (4) Acute and chronic respiratory failure with hypoxia Code(s): J96.21 - ACUTE AND CHRONIC RESPIRATORY FAILURE WITH HYPOXIA (5) History of ESBL Klebsiella pneumoniae infection Code(s): Z86.19 - PERSONAL HISTORY OF OTHER INFECTIOUS AND PARASITIC DISEASES (6) Hypothyroid Code(s): E03.9 - HYPOTHYROIDISM, UNSPECIFIED Qualifiers: Hypothyroidism type: unspecified Qualified Code(s): E03.9 - Hypothyroidism , unspecified (7) Tracheostomy in place Code(s): Z93.0 - TRACHEOSTOMY STATUS (8) Nausea and vomiting Code(s): R11.2 - NAUSEA WITH VOMITING, UNSPECIFIED Qualifiers: Vomiting type: unspecified Vomiting Intractability: unspecified Qualified Code(s): R11.2 - Nausea with vomiting, unspecified (9) COPD (chronic obstructive pulmonary disease) Code(s): J44.9 - CHRONIC OBSTRUCTIVE PULMONARY DISEASE, UNSPECIFIED Qualifiers: COPD type: unspecified COPD Qualified Code(s): J44.9 - Chronic obstructive pulmonary disease, unspecified (10) Somatic complaints, multiple Code(s): R68.89 - OTHER GENERAL SYMPTOMS AND SIGNS (11) Insomnia disorder Code(s): G47.00 - INSOMNIA, UNSPECIFIED (12) Depression with anxiety Code(s): F41.8 - OTHER SPECIFIED ANXIETY DISORDERS (13) Diabetes mellitus Code(s): E11.9 - TYPE 2 DIABETES MELLITUS WITHOUT COMPLICATIONS Qualifiers: Diabetes mellitus type: type 2 (14) GERD (gastroesophageal reflux disease) Code(s): K21.9 - GASTRO-ESOPHAGEAL REFLUX DISEASE WITHOUT ESOPHAGITIS (15) Gastritis Code(s): K29.70 - GASTRITIS, UNSPECIFIED, WITHOUT BLEEDING Qualifiers: Gastritis type: unspecified gastritis Chronicity: unspecified Gastritis bleeding: without bleeding Qualified Code(s): K29.70 - Gastritis, unspecified , without bleeding (16) HTN (hypertension) Code(s): I10 - ESSENTIAL (PRIMARY) HYPERTENSION Qualifiers: (17) Hyperlipidemia Code(s): E78.5 - HYPERLIPIDEMIA, UNSPECIFIED Qualifiers: Assessment/Plan This is a 52 y/o woman with a PMHx of: HTN, HLD, Anxiety, COPD w/Trach #8, Afib , DM, GERD, Colitis, SB resection, Kidney Stents. Admitted for Sepsis secondary to UTI, Lactic Acidosis for further evaluation of their emergent condition. Plan: 1. ID: Sepsis likely secondary to UTI vs Pneumonia vs Influenza Failed Outpatient Therapy qSOFA 0 Sepsis Criteria Met III- T max 100.0, P 119, Lactic Acid 3.5, UA- +2 blood, +1 leukocyte esterase Urine Culture-pending Lactic Acid 3.5~1.8 post NS fluid bolus Rapid Flu swab-pending Zosyn, Diflucan given in the ED Will continue Zosyn Appreciate ID consult Monitor CBC, BMP Monitor vitals 2. Pulm: Duonebs Trach collar with Humidified O2 Trach care Appreciate Pulmonolgy consult Monitor vitals Aspiration Precautions 3. Card: Afib HTN HLD Hypomagnesemia Hypokalemia Hypomagnesemia and Hypokalemia likely secondary to diarrhea, repleted in ED Monitor BMP and treat accordingly [id number] 3 Continue home meds with parameters EKG- ST with possible anterior infarct age undetermined, no change from prior study 4. Endo: DM not controlled BGMs ISS Monitor renal function 5. GI: GERD Continue PPI 6. Psych: Anxiety Continue home meds FEN PO fluids as tolerated Replete lytes prn Clear Liquid DM Diet DVT ppx SCDs Continue Eliquis Code Status: Full Code Dispo: Requires Inpatient Care Visit type - Emergency Visit Emergency Visit: Yes ED Registration Date: 09/18/18 Care time: The patient presented to the Emergency Department on the above date and was hospitalized for further evaluation of their emergent condition. - New Patient This patient is new to me today: Yes Date on this admission: 09/18/18 - Critical Care Critical Care patient: No
[2018-09-18 21:08] VITALS: BMI 32.5
[2018-09-18] MEDS ORDERED: MORPHINE SULFATE 2 MG/ML VIAL IVPUSH ONE (21:15)
[2018-09-18] MEDS ORDERED: GABAPENTIN 100 MG CAPSULE (FP) ONE (21:34)
[2018-09-18] MEDS ORDERED: GABAPENTIN 300 MG CAPSULE (FP) ONE (21:34)
[2018-09-18] MEDS: GABAPENTIN 300 MG, GABAPENTIN 200 MG PO SCH (22:01)
[2018-09-18] MEDS: LORATADINE 10 MG TABLET PO SCH (22:01)
[2018-09-18] MEDS: BACLOFEN 10 MG TABLET (FP) PO SCH (22:02)
[2018-09-18] MEDS: MONTELUKAST NA 10 MG TABLET PO SCH (22:02)
[2018-09-18] MEDS: ONDANSETRON 4 MG/2 ML VIAL IVPUSH PRN (22:02)
[2018-09-18] MEDS: APIXABAN 5 MG TABLET PO SCH (22:16)
[2018-09-18] MEDS: ZOLPIDEM TARTRATE 5 MG TABLET PO PRN (23:13)
[2018-09-19] MEDS ORDERED: GABAPENTIN 100 MG CAPSULE (FP) ONE ×3 (05:12→19:59)
[2018-09-19] MEDS ORDERED: GABAPENTIN 300 MG CAPSULE (FP) ONE ×3 (05:12→19:59)
[2018-09-19] MEDS: GABAPENTIN 300 MG, GABAPENTIN 200 MG PO SCH ×3 (06:12→22:18)
[2018-09-19] MEDS: LEVOTHYROXINE NA 50 MCG TABLET (FP) PO SCH (06:12)
[2018-09-19] MEDS: BACLOFEN 10 MG TABLET (FP) PO SCH ×3 (06:13→22:19)
--- NOTE | 2018-09-19 09:15 | PN ---
Progress Note, Physician Chief Complaint: NAUSEA/VOMITING History of Present Illness: NAD On trach collar Little lethargic tolerated full liquids, complaining of pain in the back and BLLE - Current Medication List Current Medications: Active Medications Acetaminophen (Tylenol -) 650 mg PO Q6H PRN PRN Reason: PAIN LEVEL 1-5 OR FEVER Apixaban (Eliquis -) 5 mg PO BID [facility] Last Admin: 09/18/18 22:16 Dose: 5 mg Baclofen (Lioresal -) 20 mg PO TID [facility] Last Admin: 09/19/18 06:13 Dose: 20 mg Diltiazem HCl (Cardizem Cd -) 240 mg PO BID [facility] Doxepin HCl (Sinequan -) 25 mg PO DAILY [facility] Gabapentin 300 mg/ Gabapentin (200 mg) 500 mg PO TID [facility] Last Admin: 09/19/18 06:12 Dose: 500 mg Piperacillin Sod/Tazobactam (Sod 3.375 gm/ Dextrose) 50 mls @ 100 mls/hr IVPB Q8H-IV EMMY; Protocol Piperacillin Sod/Tazobactam (Sod 3.375 gm/ Dextrose) 50 mls @ 100 mls/hr IVPB Q8H-IV EMM[facility] Stop: 09/20/18 02:29 Levothyroxine Sodium (Synthroid -) 50 mcg PO DAILY@0700 [facility] Last Admin: 09/19/18 06:12 Dose: 50 mcg Loratadine (Claritin -) 10 mg PO [facility] Last Admin: 09/18/18 22:01 Dose: 10 mg Montelukast Sodium (Singulair -) 10 mg PO [facility] Last Admin: 09/18/18 22:02 Dose: 10 mg Non-Formulary Medication (Mirabegron [Myrbetriq]) 50 mg PO DAILY [facility] Non-Formulary Medication (Vortioxetine Hydrobromide [Trintellix]) 20 mg PO DAILY [facility] Ondansetron HCl (Zofran Injection) 4 mg IVPUSH Q6H PRN PRN Reason: NAUSEA AND/OR VOMITING Last Admin: 09/18/18 22:02 Dose: 4 mg Ranitidine HCl (Zantac -) 300 mg PO DAILY [facility] Rosuvastatin Calcium (Crestor -) 10 mg PO HS [facility] Topiramate (Topamax -) 100 mg PO DAILY [facility] Venlafaxine HCl (Effexor Xr -) 75 mg PO DAILY@0800 [facility] Zolpidem Tartrate (Ambien -) 10 mg PO HS PRN PRN Reason: INSOMNIA Last Admin: 09/18/18 23:13 Dose: 10 mg - Objective Vital Signs: Vital Signs Temperature 97.8 F 09/19/18 05:35 Pulse Rate 119 H 09/19/18 05:35 Respiratory Rate 20 09/19/18 06:35 Blood Pressure 112/68 09/19/18 05:35 O2 Sat by Pulse Oximetry (%) 98 09/18/18 20:41 Constitutional: Yes: Well Nourished, No Distress, Calm Cardiovascular: Yes: Regular Rate and Rhythm Respiratory: Yes: Rhonchi, Other (On trach collar) Musculoskeletal: Yes: WNL Extremities: Yes: WNL Edema: No Peripheral Pulses WNL: Yes Neurological: Yes: Alert, Oriented Psychiatric: Yes: Alert, Oriented Labs: CBC, BMP 09/18/18 16:07 09/18/18 16:07 Problem List - Problems (1) Elevated lactic acid level Assessment/Plan: -IVF -Repeat LA is normalized Code(s): R79.89 - OTHER SPECIFIED ABNORMAL FINDINGS OF BLOOD CHEMISTRY (2) Sepsis Assessment/Plan: -IVF -Repeat LA normal -ID consult -IV abx -Low grade fever overnight Code(s): A41.9 - SEPSIS, UNSPECIFIED ORGANISM (3) UTI (urinary tract infection) Assessment/Plan: -UC pending -ID consult -IV abx -ESBL in UC in the past Code(s): N39.0 - URINARY TRACT INFECTION, SITE NOT SPECIFIED (4) Tracheostomy in place Code(s): Z93.0 - TRACHEOSTOMY STATUS (5) Diabetes mellitus Assessment/Plan: -BGM AC HS -Insulin Novolog Sliding scale -Advance diet to diabetic/low sodium diet Code(s): E11.9 - TYPE 2 DIABETES MELLITUS WITHOUT COMPLICATIONS Qualifiers: Diabetes mellitus type: type 2 (6) Chronic respiratory failure Assessment/Plan: -Trach collar -Pulmonary consult -Bronchodilators Code(s): J96.10 - CHRONIC RESPIRATORY FAILURE, UNSP W HYPOXIA OR HYPERCAPNIA (7) Chronic pain disorder Assessment/Plan: My Prescriptions Patient Name: Bonita Figueroa Date: 1965 Address: [address] [place] [address] Sex: Female Rx Written Rx Dispensed Drug Quantity Days Supply Prescriber Name 08/15/2018 08/18/2018 zolpidem tartrate 10 mg tablet 7 7 Kayla Cindy Taylor 08/15/2018 08/18/2018 alprazolam 0.25 mg tablet 15 5 Kayla Cindy Taylor Patient Name: Bonita Figueroa Date: 1965 Address: [address] [place] [address] Sex: Female Rx Written Rx Dispensed Drug Quantity Days Supply Prescriber Name 08/26/2018 09/02/2018 zolpidem tartrate 10 mg tablet 7 7 Do Martinez MD 09/02/2018 09/02/2018 zolpidem tartrate 10 mg tablet 7 7 Do Martinez MD 09/02/2018 09/02/2018 alprazolam 0.25 mg tablet 21 7 Do Martinez MD 07/30/2018 08/18/2018 hydromorphone 4 mg tablet 120 30 Ector Lynne M 08/03/2018 08/05/2018 alprazolam 0.25 mg tablet 21 7 Do Martinez MD 08/03/2018 08/05/2018 zolpidem tartrate 10 mg tablet 7 7 Do Martinez MD 07/29/2018 07/29/2018 alprazolam 0.25 mg tablet 21 7 Do Martinez MD 07/29/2018 07/29/2018 zolpidem tartrate 10 mg tablet 7 7 Do Martinez MD 07/20/2018 07/21/2018 alprazolam 0.25 mg tablet 21 7 Do Martinez MD 07/15/2018 07/15/2018 zolpidem tartrate 10 mg tablet 7 7 Do Martinez MD 07/15/2018 07/15/2018 alprazolam 0.25 mg tablet 21 7 Do Martinez MD 07/06/2018 07/14/2018 hydromorphone 4 mg tablet 120 30 Ector Lynne M 07/07/2018 07/09/2018 zolpidem tartrate 10 mg tablet 6 6 Do Martinez MD 07/07/2018 07/09/2018 alprazolam 0.25 mg tablet 21 7 Do Martinez MD 06/23/2018 06/24/2018 zolpidem tartrate 10 mg tablet 7 7 Do Martinez MD -Restart hydromorphone 4 mg Q8H PRN -Relistor for opioid induced constipation during hospital stay. At home uses Linzess which hospital doesn't carry. Code(s): G89.4 - CHRONIC PAIN SYNDROME (8) Paroxysmal atrial fibrillation Assessment/Plan: -rate controlled -On Eliquis 5 mg po BID Code(s): I48.0 - PAROXYSMAL ATRIAL FIBRILLATION Assessment/Plan see problem list
[2018-09-19] MEDS ORDERED: PT OWN MED DRAWER 7, Y5N ONE ×2 (09:25→20:01)
[2018-09-19] MEDS ORDERED: PIPERACILLIN/TAZOBACTAM 3.375 GM VIAL IVPB ONE (09:25)
[2018-09-19] MEDS ORDERED: DEXTROSE 5%-WATER - 50 ML IVPB ONE (09:26)
[2018-09-19] MEDS ORDERED: PIPERACILLIN/TAZOB 3.375 GM 3.375 GM in DEXTROSE 5%-WATER - 50 ML IVPB SCH (10:00)
[2018-09-19] MEDS: VENLAFAXINE HCL 75 MG E.R. CAPSULES (FP) PO SCH (10:09)
[2018-09-19] MEDS: RANITIDINE HCL 150 MG TABLET (FP) PO SCH (10:10)
[2018-09-19] MEDS: TOPIRAMATE 100 MG TABLET PO SCH (10:10)
[2018-09-19] MEDS: APIXABAN 5 MG TABLET PO SCH ×2 (10:10→22:19)
[2018-09-19] MEDS: DOXEPIN HCL 25 MG CAPSULE PO SCH (10:10)
[2018-09-19 10:23] LABS: ALBUMIN 2.3 g/dl (3.4-5.0); ALK PHOS 164 U/L (45-117); BILIRUBIN,TOTAL 0.2 mg/dL (0.2-1); SGOT/AST 25 U/L (15-37); SGPT/ALT 21 U/L (13-61); TOT PROT 5.6 g/dl (6.4-8.2)
[2018-09-19 10:41] LABS: BASO % 0.6 % (0-2.0); EOS % 5.6 % (0-4.5); HEMATOCRIT 27.3 % (32.4-45.2); LYMPH % 17.6 % (8-40); MCH 21.5 pg (25.7-33.7); MCHC 29.1 g/dl (32.0-36.0); MEAN PLT VOLUME 8.8 fl (7.5-11.1); MONO % 14.2 % (3.8-10.2); PLATELET COUNT 335 K/MM3 (134-434); RBC 3.69 M/mm3 (3.60-5.2); RDW 20.4 % (11.6-15.6); WHITE BLOOD COUNT 6.2 K/mm3 (4.0-10.0)
[2018-09-19 11:14] LABS: ANION GAP 9 MMOL/L (8-16); BLOOD UREA NITROGEN 5 mg/dL (7-18); CALCIUM 7.6 mg/dL (8.5-10.1); CHLORIDE 110 mmol/L (98-107); CO2 27 mmol/L (21-32); CREATININE 0.6 mg/dL (0.55-1.3); GLUCOSE,RANDOM 186 mg/dL (74-106); POTASSIUM 4.3 mmol/L (3.5-5.1); SODIUM 146 mmol/L (136-145)
[2018-09-19] MEDS: ALBUTEROL SO4 2.5/IPRATROPIUM 0.5 INH SOL 3 ML VIAL.NEB. NEB SCH ×3 (11:50→20:34)
--- NOTE | 2018-09-19 12:14 | CON.PULM ---
Consult Consult Specialty:: PULMONARY Referred by:: Dr. Capps Reason for Consultation:: COPD - History of Present Illness Chief Complaint: nausea/vomiting History of Present Illness: 52yo female with h/o HTN, hyperlipidemia, DM, hypothyroidism, Asthma/COPD, chronic hypoxic and hypercapneic respiratory failure s/p tracheostomy, paroxysmal atrial fibrillation, chronic back pain who presents with nausea and vomiting x 2 days. No fevers, chills or sweats but with low grade temp on admission. Breathing at baseline. +chronic nonproductive cough and wheezing. Urinalysis suggestive of UTI. CXR showing possible left perihilar infiltrate. - History Source History Provided By: Patient, Medical Record Limitations to Obtaining History: Clinical Condition - Past Medical History Cardio/Vascular: Yes: AFIB (Paroxysmal), HTN, Hyperlipdemia Pulmonary: Yes: Asthma, COPD, O2 Dependent, Previously Intubated Gastrointestinal: Yes: GI Bleed Renal/: Yes: Cancer (Uterine), Other ([place] in the past) Infectious Disease: Yes: C-Diff (june 2014), Other (Osteomyelitis of thoracic spine) Psych: Yes: Anxiety, Bipolar, Depression Musculoskeletal: Yes: Chronic low back pain, Other (multiple vertebral fractures ) Endocrine: Yes: Diabetes Mellitus, Hypothyroidism Additional Medical History: Frequent c/o abdominal pain-extensive w/u in the past negative. Presumed adhesions from prior surgeries. - Past Surgical History Past Surgical History: Yes: Appendectomy, Colectomy (By description, right colon resection with anastamosis noted on colonoscopy 2013), Hysterectomy (ADE/ BSO), Stent - Alcohol/Substance Use Hx Alcohol Use: No - Smoking History Smoking history: Former smoker Have you smoked in the past 12 months: No Aproximately how many cigarettes per day: 3 If you are a former smoker, when did you quit?: 2014 - Social History Usual Living Arrangement: Alone 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) History of Recent Travel: No Home Medications - Allergies Allergies/Adverse Reactions: Allergies Allergy/AdvReac Type Severity Reaction Status Date / Time oxycodone [Oxycodone] Allergy Severe Nausea Verified 09/18/18 15:33 oxycodone HCl [From Percocet] Allergy Severe Nausea Verified 09/18/18 15:33 aspirin Allergy Mild Verified 09/18/18 15:33 blueberry [Blueberry] Allergy Mild Swelling Verified 09/18/18 15:33 fentanyl Allergy Mild Vomiting Verified 09/18/18 15:33 ibuprofen Allergy Swelling Verified 09/18/18 15:33 - Home Medications Home Medications: Ambulatory Orders Albuterol Sulfate Inhaler - [Ventolin HFA Inhaler -] 2 puff IH Q4H PRN #0 inhaler 11/29/16 Acetaminophen [Tylenol .Regular Strength -] 650 mg PO Q6H PRN #0 tablet Apixaban [Eliquis -] 5 mg PO BID tablet 04/29/17 Baclofen 20 mg PO TID 07/09/18 Diltiazem HCl [Diltiazem 24Hr Cd] 240 mg PO BID 07/09/18 Levocetirizine Dihydrochloride 5 mg PO HS 07/09/18 Levothyroxine [Synthroid -] 50 mcg PO DAILY 07/09/18 Rosuvastatin Calcium [Crestor] 10 mg PO DAILY 07/09/18 Venlafaxine HCl ER [Effexor Xr -] 75 mg PO DAILY 07/09/18 Famotidine 40 mg PO BID 08/07/18 Hydromorphone HCl 4 mg PO Q4H 08/07/18 Mirabegron [Myrbetriq] 50 mg PO DAILY 08/07/18 Montelukast Na [Singulair -] 10 mg PO HS 08/07/18 Alprazolam [Xanax] 0.25 mg PO TID #15 tablet MDD 3 08/15/18 Doxepin HCl [Sinequan -] 25 mg PO DAILY #30 capsule 08/15/18 Linaclotide [Linzess] 145 mcg PO DAILY #30 cap 08/15/18 Pantoprazole Sodium [Protonix -] 40 mg PO DAILY #30 tablet.ec 08/15/18 Topiramate [Topamax -] 100 mg PO DAILY #30 tablet 08/15/18 Vortioxetine Hydrobromide [Trintellix] 20 mg PO DAILY #30 tablet 08/15/18 Gabapentin [Neurontin -] 500 mg PO Q8H #21 capsule 08/30/18 Insulin (Novolog) [Novolog -] 0 units SQ AC 08/30/18 Ondansetron [Zofran -] 8 mg PO TID 08/30/18 Zolpidem Tartrate 10 mg PO HS MDD 1 10/13/18 Gabapentin [Neurontin -] 500 mg PO TID #90 capsule 09/08/18 Nitrofurantoin Monohyd/M-Cryst [Macrobid -] 100 mg PO BID #14 capsule 09/08/18 Ondansetron [Ondansetron Odt] 8 mg PO TID #90 tab.rapdis 09/09/18 Phenazopyridine HCl [Pyridium -] 100 mg PO ONCE #6 tablet 09/15/18 Fluconazole [Diflucan -] 200 mg PO DAILY #7 tablet 09/18/18 Family Disease History - Family Disease History Family Disease History: Diabetes: Mother (Alive: heart surgery), Heart Disease: Mother, [place]: Father (: leukemia), Other: Brother (2,Healthy), Sister (1, Healthy) Review of Systems - Review of Systems Constitutional: reports: Weakness. denies: Chills, Fever Eyes: denies: Recent Change in Vision HENT: denies: Nasal Congestion, Throat Pain Neck: denies: Stiffness, Tenderness Cardiovascular: denies: Chest Pain, Shortness of Breath Respiratory: reports: Cough, Wheezing. denies: Hemoptysis Gastrointestinal: reports: Nausea, Vomiting. denies: Abdominal Pain Genitourinary: denies: Dysuria, Hematuria Neurological: denies: Dizziness, Headache Endocrine: denies: Unexplained Weight Loss Physical Exam Vital Sings: Vital Signs Temperature 97.8 F 09/19/18 05:35 Pulse Rate 119 H 09/19/18 05:35 Respiratory Rate 20 09/19/18 06:35 Blood Pressure 112/68 09/19/18 05:35 O2 Sat by Pulse Oximetry (%) 98 09/18/18 20:41 Constitutional: Yes: Mild Distress, Other (somnolent) Eyes: Yes: Conjunctiva Clear, EOM Intact HENT: Yes: Atraumatic, Normocephalic Neck: Yes: Supple, Trachea Midline Cardiovascular: Yes: Regular Rate and Rhythm Respiratory: Yes: Diminished (distant breath sounds) Gastrointestinal: Yes: Normal Bowel Sounds, Soft, Abdomen, Obese. No: Tenderness Edema: No Neurological: Yes: Oriented Labs: CBC, BMP 09/19/18 09:15 09/19/18 09:15 Imaging - Results Chest X-ray: Report Reviewed, Image Reviewed (possible left hilar infiltrate) Problem List - Problems (1) UTI (urinary tract infection) Code(s): N39.0 - URINARY TRACT INFECTION, SITE NOT SPECIFIED (2) Pneumonia Code(s): J18.9 - PNEUMONIA, UNSPECIFIED ORGANISM Qualifiers: Pneumonia type: due to unspecified organism Laterality: unspecified laterality Lung location: unspecified part of lung Qualified Code(s): J18.9 - Pneumonia, unspecified organism Assessment/Plan UTI r/o Pneumonia Chronic Hypoxic and Hypercapneic Respiratory Failure Asthma/COPD HTN Paroxysmal Atrial Fibrillation DM Hypothyroidism Chronic Pain - continue antibiotics per ID - will give dose of vanco since initial blood culture positive for gram positive cocci - f/u cultures - repeat CXR - inhaled bronchodilators standing and PRN - O2 to keep Spo2 >90% - can defer systemic steroids at this time - rate controlled - continue anticoagulation Thank you for this consult Manolo Elena MD
[2018-09-19] MEDS ORDERED: ALBUTEROL SO4 0.083% IH SOL 2.5 MG/3 ML VIAL.NEB. NEB PRN (12:16)
[2018-09-19] MEDS ORDERED: VANCOMYCIN 1 GRAM (PRE-DOCKED) 1,000 MG/250 ML BAG IVPB ONE (12:16)
[2018-09-19] MEDS: INSULIN SLIDING SCALE (NOVOLOG) 1 VIAL SQ SCH ×3 (12:52→22:23)
--- NOTE | 2018-09-19 14:02 | EKG ---
Test Reason : Blood Pressure : / mmHG Vent. Rate : 114 BPM Atrial Rate : 114 BPM P-R Int : 140 ms QRS Dur : 082 ms QT Int : 322 ms P-R-T Axes : 034 006 038 degrees QTc Int : 443 ms SINUS TACHYCARDIA POSSIBLE ANTERIOR INFARCT (CITED ON OR BEFORE 15-SEP-2018) ABNORMAL ECG WHEN COMPARED WITH ECG OF 15-SEP-2018 20:48, NO SIGNIFICANT CHANGE WAS FOUND Confirmed by MD Kannan, John ([id number]) on 09/19/2018 2:01:43 PM Referred By: Confirmed By:John Brunner MD
--- NOTE | 2018-09-19 15:20 | PN ---
Progress Note (short form) - Note Progress Note: ID Consult dictated +BC R/O staph sepsis Exacerbation COPD ? Pneumonia Pending c/s empiric vancomycin/ ceftriaxone
[2018-09-19] MEDS ORDERED: DEXTROSE 5%-WATER 100 ML IVPB ONE (16:44)
[2018-09-19] MEDS: Methylnaltrexone Bromide 12 MG/0.6 ML KIT SQ SCH (16:50)
[2018-09-19] MEDS: CEFTRIAXONE 2 GM in DEXTROSE 5%-WATER 100 ML IVPB SCH (16:52)
[2018-09-19] MEDS ORDERED: INSULIN (LEVEMIR) 100 UNITS/ML UNITS SQ ONE (19:59)
[2018-09-19] MEDS ORDERED: INSULIN (NOVOLOG) ASPART 100 UNITS/ML 10ML VIAL ONE (20:01)
[2018-09-19] MEDS ORDERED: INSULIN (LEVEMIR) 100 UNITS/ML UNITS SQ SCH (22:00)
[2018-09-19] MEDS: LORATADINE 10 MG TABLET PO SCH (22:19)
[2018-09-19] MEDS: MONTELUKAST NA 10 MG TABLET PO SCH (22:19)
[2018-09-19] MEDS: ROSUVASTATIN CA 10 MG TABLET (FP) PO SCH (22:20)
[2018-09-19] MEDS: ZOLPIDEM TARTRATE 5 MG TABLET PO PRN (22:20)
[2018-09-20] MEDS: VANCOMYCIN 1 GRAM (PRE-DOCKED) 1,000 MG/250 ML BAG IVPB SCH ×2 (00:12→13:07)
--- NOTE | 2018-09-20 00:13 | CONSULT ---
Consult Consult Specialty:: endocrine Referred by:: watson crowley np Reason for Consultation:: diabetes mellitus hyperglycemia - History of Present Illness Chief Complaint: high sugars History of Present Illness: 52 y/o woman who presents to the ED with complaints of N/V/D x 2 days now resolved, but reports having a decreased appetite and generalized malaise. Patient reports that she had stomach flu-like symptoms as well. she has long history high sugars despite not having appetite,reacting to steroids for respiratory condition,although she has taken insulin she cant control her sugars.she denies nausea and vomiting - Past Medical History Cardio/Vascular: Yes: AFIB (Paroxysmal), HTN, Hyperlipdemia Pulmonary: Yes: Asthma, COPD, O2 Dependent, Previously Intubated Gastrointestinal: Yes: GI Bleed Renal/: Yes: Cancer (Uterine), Other ([place] in the past) Infectious Disease: Yes: C-Diff (june 2014), Other (Osteomyelitis of thoracic spine) Psych: Yes: Anxiety, Bipolar, Depression Musculoskeletal: Yes: Chronic low back pain, Other (multiple vertebral fractures ) Endocrine: Yes: Diabetes Mellitus, Hypothyroidism Additional Medical History: Frequent c/o abdominal pain-extensive w/u in the past negative. Presumed adhesions from prior surgeries. - Past Surgical History Past Surgical History: Yes: Appendectomy, Colectomy (By description, right colon resection with anastamosis noted on colonoscopy 2013), Hysterectomy (ADE/ BSO), Stent - Alcohol/Substance Use Hx Alcohol Use: No - Smoking History Smoking history: Former smoker Have you smoked in the past 12 months: No Aproximately how many cigarettes per day: 3 If you are a former smoker, when did you quit?: 2014 - Social History Usual Living Arrangement: Alone 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) History of Recent Travel: No Home Medications - Allergies Allergies/Adverse Reactions: Allergies Allergy/AdvReac Type Severity Reaction Status Date / Time oxycodone [Oxycodone] Allergy Severe Nausea Verified 09/18/18 15:33 oxycodone HCl [From Percocet] Allergy Severe Nausea Verified 09/18/18 15:33 aspirin Allergy Mild Verified 09/18/18 15:33 blueberry [Blueberry] Allergy Mild Swelling Verified 09/18/18 15:33 fentanyl Allergy Mild Vomiting Verified 09/18/18 15:33 ibuprofen Allergy Swelling Verified 09/18/18 15:33 - Home Medications Home Medications: Ambulatory Orders Albuterol Sulfate Inhaler - [Ventolin HFA Inhaler -] 2 puff IH Q4H PRN #0 inhaler 11/29/16 Acetaminophen [Tylenol .Regular Strength -] 650 mg PO Q6H PRN #0 tablet Apixaban [Eliquis -] 5 mg PO BID tablet 04/29/17 Baclofen 20 mg PO TID 07/09/18 Diltiazem HCl [Diltiazem 24Hr Cd] 240 mg PO BID 07/09/18 Levocetirizine Dihydrochloride 5 mg PO HS 07/09/18 Levothyroxine [Synthroid -] 50 mcg PO DAILY 07/09/18 Rosuvastatin Calcium [Crestor] 10 mg PO DAILY 07/09/18 Venlafaxine HCl ER [Effexor Xr -] 75 mg PO DAILY 07/09/18 Famotidine 40 mg PO BID 08/07/18 Hydromorphone HCl 4 mg PO Q4H 08/07/18 Mirabegron [Myrbetriq] 50 mg PO DAILY 08/07/18 Montelukast Na [Singulair -] 10 mg PO HS 08/07/18 Alprazolam [Xanax] 0.25 mg PO TID #15 tablet MDD 3 08/15/18 Doxepin HCl [Sinequan -] 25 mg PO DAILY #30 capsule 08/15/18 Linaclotide [Linzess] 145 mcg PO DAILY #30 cap 08/15/18 Pantoprazole Sodium [Protonix -] 40 mg PO DAILY #30 tablet.ec 08/15/18 Topiramate [Topamax -] 100 mg PO DAILY #30 tablet 08/15/18 Vortioxetine Hydrobromide [Trintellix] 20 mg PO DAILY #30 tablet 08/15/18 Gabapentin [Neurontin -] 500 mg PO Q8H #21 capsule 08/30/18 Insulin (Novolog) [Novolog -] 0 units SQ AC 08/30/18 Ondansetron [Zofran -] 8 mg PO TID 08/30/18 Zolpidem Tartrate 10 mg PO HS MDD 1 09/04/18 Gabapentin [Neurontin -] 500 mg PO TID #90 capsule 10/17/18 Nitrofurantoin Monohyd/M-Cryst [Macrobid -] 100 mg PO BID #14 capsule 09/08/18 Ondansetron [Ondansetron Odt] 8 mg PO TID #90 tab.rapdis 09/09/18 Phenazopyridine HCl [Pyridium -] 100 mg PO ONCE #6 tablet 09/15/18 Fluconazole [Diflucan -] 200 mg PO DAILY #7 tablet 09/18/18 Family Disease History - Family Disease History Family Disease History: Diabetes: Mother (Alive: heart surgery), Heart Disease: Mother, [place]: Father (: leukemia), Other: Brother (2,Healthy), Sister (1, Healthy) Review of Systems - Review of Systems Constitutional: reports: Loss of Appetite, Weakness Eyes: reports: Blurred Vision HENT: reports: Difficult Swallowing Neck: reports: Swollen Glands Cardiovascular: reports: Shortness of Breath Respiratory: reports: Cough, Exercise Intolerance, Orthopnea, SOB, SOB on Exertion, Wheezing Gastrointestinal: reports: Bloating, Constipation Genitourinary: reports: No Symptoms Breasts: reports: No Symptoms Reported Musculoskeletal: reports: Back Pain, Extremity Pain, Joint Swelling, Muscle Pain , Muscle Cramps Integumentary: reports: Pruritis Neurological: reports: Dizziness, Headache, Numbness, Weakness Endocrine: reports: Unexplained Weight Gain Physical Exam Vital Signs: Vital Signs Temperature 98 F 09/19/18 22:34 Pulse Rate 114 H 09/19/18 22:34 Respiratory Rate 20 09/19/18 22:34 Blood Pressure 106/71 09/19/18 22:34 O2 Sat by Pulse Oximetry (%) 98 09/18/18 20:41 Constitutional: Yes: Anxious Eyes: Yes: EOM Intact HENT: Yes: Normocephalic Neck: Yes: Trachea Midline Cardiovascular: Yes: Tachycardia Respiratory: Yes: Cough, On BiPap, Rhonchi, SOB, Tachypnea Gastrointestinal: Yes: Abdomen, Obese ...Rectal Exam: Yes: Deferred Renal/: Yes: WNL Musculoskeletal: Yes: Back Pain Edema: No Neurological: Yes: Alert, Oriented Labs: CBC, BMP 09/19/18 09:15 09/19/18 09:15 Problem List - Problems (1) Elevated lactic acid level Code(s): R79.89 - OTHER SPECIFIED ABNORMAL FINDINGS OF BLOOD CHEMISTRY (2) Sepsis Code(s): A41.9 - SEPSIS, UNSPECIFIED ORGANISM (3) UTI (urinary tract infection) Code(s): N39.0 - URINARY TRACT INFECTION, SITE NOT SPECIFIED (4) Abdominal pain Code(s): R10.9 - UNSPECIFIED ABDOMINAL PAIN (5) Abscess Code(s): L02.91 - CUTANEOUS ABSCESS, UNSPECIFIED (6) Acute and chronic respiratory failure with hypoxia Code(s): J96.21 - ACUTE AND CHRONIC RESPIRATORY FAILURE WITH HYPOXIA (7) Acute bronchitis Code(s): J20.9 - ACUTE BRONCHITIS, UNSPECIFIED Assessment/Plan Current Active Problems Elevated lactic acid level (Acute) Sepsis (Acute) UTI (urinary tract infection) (Acute) diabetes mellitus hyperglycemia diabetic neuropathy pneumonia copd Abnormal Lab Results 09/19/18 09/19/18 09/19/18 09:15 09:15 10:47 Hgb 8.0 L Hct 27.3 L MCV 74.0 L MCH 21.5 L MCHC 29.1 L RDW 20.4 H Monocytes % 14.2 H Eosinophils % 5.6 H Sodium 146 H Chloride 110 H BUN 5 L Random Glucose 186 H Hemoglobin A1c % 10.3 H Calcium 7.6 L Alkaline Phosphatase 164 H Total Protein 5.6 L Albumin 2.3 L Laboratory Results - last 24 hr 09/19/18 09/19/18 09/19/18 09:15 09:15 10:47 WBC 6.2 RBC 3.69 Hgb 8.0 L Hct 27.3 L MCV 74.0 L MCH 21.5 L MCHC 29.1 L RDW 20.4 H Plt Count 335 MPV 8.8 Absolute Neuts (auto) 3.9 Neutrophils % 62.0 Lymphocytes % 17.6 Monocytes % 14.2 H Eosinophils % 5.6 H Basophils % 0.6 Nucleated RBC % 0 Sodium 146 H Potassium 4.3 Chloride 110 H Carbon Dioxide 27 Anion Gap 9 BUN 5 L Creatinine 0.6 Creat Clearance w eGFR > 60 POC Glucometer Random Glucose 186 H Hemoglobin A1c % 10.3 H Calcium 7.6 L Magnesium 2.0 Total Bilirubin 0.2 AST 25 ALT 21 Alkaline Phosphatase 164 H Total Protein 5.6 L Albumin 2.3 L 09/19/18 09/19/18 09/19/18 12:10 16:51 22:17 WBC RBC Hgb Hct MCV MCH MCHC RDW Plt Count MPV Absolute Neuts (auto) Neutrophils % Lymphocytes % Monocytes % Eosinophils % Basophils % Nucleated RBC % Sodium Potassium Chloride Carbon Dioxide Anion Gap BUN Creatinine Creat Clearance w eGFR POC Glucometer 176 186 214 Random Glucose Hemoglobin A1c % Calcium Magnesium Total Bilirubin AST ALT Alkaline Phosphatase Total Protein Albumin Laboratory Tests 09/19/18 09/19/18 09/19/18 09:15 10:47 12:10 Sodium 146 H Potassium 4.3 Chloride 110 H Carbon Dioxide 27 Anion Gap 9 BUN 5 L Creatinine 0.6 POC Glucometer 176 Random Glucose 186 H Hemoglobin A1c % 10.3 H 09/19/18 09/19/18 16:51 22:17 Sodium Potassium Chloride Carbon Dioxide Anion Gap BUN Creatinine POC Glucometer 186 214 Random Glucose Hemoglobin A1c % plan: bgm qid novolog insulin doses Current Medications Generic Name Dose Route Start Last Admin Trade Name Freq PRN Reason Stop Dose Admin Acetaminophen 650 mg 09/18/18 23:59 Tylenol - PO Q6H PRN PAIN LEVEL 1-5 OR FEVER Albuterol Sulfate 1 amp 09/19/18 12:16 Ventolin 0.083% Nebulizer Soln - NEB Q4H PRN SHORT OF BREATH/WHEEZING Albuterol/Ipratropium 1 amp 09/19/18 12:00 09/19/18 20:34 Duoneb - NEB 1 amp RQID EMMY Administration Apixaban 5 mg 09/18/18 22:00 09/19/18 22:19 Eliquis - PO 5 mg BID EMMY Administration Baclofen 20 mg 09/18/18 22:00 09/19/18 22:19 Lioresal - PO 20 mg TID EMMY Administration Diltiazem HCl 240 mg 09/19/18 10:00 09/19/18 22:18 Cardizem Cd - PO 240 mg BID EMMY Administration Doxepin HCl 25 mg 09/19/18 10:00 09/19/18 10:10 Sinequan - PO 25 mg DAILY EMMY Administration Gabapentin 300 mg/ Gabapentin 500 mg 09/18/18 22:00 09/19/18 22:18 200 mg PO 500 mg TID EMMY Administration Hydromorphone HCl 4 mg 09/19/18 10:36 09/19/18 22:23 Dilaudid - PO 4 mg Q8H PRN Administration PAIN LEVEL 6-10 Vancomycin HCl 1,000 mg in 250 mls @ 166.667 mls/hr 09/20/18 01:00 Vancomycin (Pre-Docked) IVPB BID@0100,1300 EMM[facility] Protocol Ceftriaxone Sodium 2 gm/ 100 mls @ 200 mls/hr 09/19/18 16:30 09/19/18 16:52 Dextrose IVPB 200 mls/hr DAILY EMMY Administration Protocol Insulin Aspart 1 vial 09/19/18 11:00 09/19/18 22:23 Novolog Vial Sliding Scale - SQ 4 units ACHS EMMY Administration Protocol Insulin Detemir 30 units 09/19/18 22:00 09/19/18 22:23 Levemir Vial SQ 30 units BID@0700,2200 E[facility] Administration Levothyroxine Sodium 50 mcg 09/19/18 07:00 09/19/18 06:12 Synthroid - PO 50 mcg DAILY@0700 EMM[facility] Administration Loratadine 10 mg 09/18/18 22:00 09/19/18 22:19 Claritin - PO 10 mg HS EMMY Administration Methylnaltrexone [place] 12 mg 09/19/18 10:45 09/19/18 16:50 Relistor - SQ Not Given DAILY EMMY Montelukast Sodium 10 mg 09/18/18 22:00 09/19/18 22:19 Singulair - PO 10 mg HS EMMY Administration Non-Formulary Medication 50 mg 09/19/18 10:00 Mirabegron [Myrbetriq] PO DAILY [facility] Non-Formulary Medication 20 mg 09/19/18 10:00 Vortioxetine Hydrobromide [Trintellix] PO DAILY [facility] Ondansetron HCl 4 mg 09/18/18 20:40 09/18/18 22:02 Zofran Injection IVPUSH 4 mg Q6H PRN Administration NAUSEA AND/OR VOMITING Ranitidine HCl 300 mg 09/19/18 10:00 09/19/18 10:10 Zantac - PO 300 mg DAILY EMMY Administration Rosuvastatin Calcium 10 mg 09/19/18 22:00 09/19/18 22:20 Crestor - PO 10 mg HS EMMY Administration Topiramate 100 mg 09/19/18 10:00 09/19/18 10:10 Topamax - PO 100 mg DAILY EMM[facility] Administration Venlafaxine HCl 75 mg 09/19/18 08:00 09/19/18 10:09 Effexor Xr - PO 75 mg DAILY@0800 E[facility] Administration Zolpidem Tartrate 10 mg 09/18/18 22:00 09/19/18 22:20 Ambien - PO 10 mg HS PRN Administration INSOMNIA Laboratory Tests 09/09/18 06:00 TSH 0.42 Free T4 1.02 plan: levemir 35 units bid synthroid 50mcg daily continue bgm as ordered
[2018-09-20] MEDS ORDERED: GABAPENTIN 100 MG CAPSULE (FP) ONE ×3 (05:59→21:23)
[2018-09-20] MEDS ORDERED: GABAPENTIN 300 MG CAPSULE (FP) ONE ×3 (05:59→21:23)
[2018-09-20] MEDS: GABAPENTIN 300 MG, GABAPENTIN 200 MG PO SCH ×3 (06:23→22:31)
[2018-09-20] MEDS: BACLOFEN 10 MG TABLET (FP) PO SCH ×3 (06:23→22:30)
[2018-09-20] MEDS: LEVOTHYROXINE NA 50 MCG TABLET (FP) PO SCH (06:23)
[2018-09-20] MEDS: INSULIN SLIDING SCALE (NOVOLOG) 1 VIAL SQ SCH ×4 (06:24→22:32)
[2018-09-20] MEDS: INSULIN (LEVEMIR) 100 UNITS/ML UNITS SQ SCH ×2 (06:37→22:32)
[2018-09-20 06:55] LABS: ALBUMIN 2.3 g/dl (3.4-5.0); ALK PHOS 173 U/L (45-117); ANION GAP 9 MMOL/L (8-16); BILIRUBIN,TOTAL 0.2 mg/dL (0.2-1); BLOOD UREA NITROGEN 7 mg/dL (7-18); CALCIUM 7.8 mg/dL (8.5-10.1); CHLORIDE 107 mmol/L (98-107); CO2 28 mmol/L (21-32); CREATININE 0.7 mg/dL (0.55-1.3); GLUCOSE,RANDOM 147 mg/dL (74-106); POTASSIUM 3.9 mmol/L (3.5-5.1); SGOT/AST 24 U/L (15-37); SGPT/ALT 22 U/L (13-61); SODIUM 143 mmol/L (136-145); TOT PROT 5.9 g/dl (6.4-8.2)
[2018-09-20] MEDS ORDERED: PT OWN MED DRAWER 7, Y5N ONE (08:07)
[2018-09-20] MEDS: ALBUTEROL SO4 2.5/IPRATROPIUM 0.5 INH SOL 3 ML VIAL.NEB. NEB SCH ×4 (08:33→20:31)
[2018-09-20] MEDS: VENLAFAXINE HCL 75 MG E.R. CAPSULES (FP) PO SCH ×2 (09:03→10:23)
[2018-09-20] MEDS ORDERED: DEXTROSE 5%-WATER 100 ML IVPB ONE (09:19)
--- NOTE | 2018-09-20 09:27 | PN ---
Progress Note, Physician Chief Complaint: EVENTS AND NOTES REVIEWED PATIENT RESTLESS, AGITATED REFUSED MEDS THIS MORNING PER STAFF DENIES CHEST PAIN OR SOB - Current Medication List Current Medications: Active Medications Acetaminophen (Tylenol -) 650 mg PO Q6H PRN PRN Reason: PAIN LEVEL 1-5 OR FEVER Albuterol Sulfate (Ventolin 0.083% Nebulizer Soln -) 1 amp NEB Q4H PRN PRN Reason: SHORT OF BREATH/WHEEZING Albuterol/Ipratropium (Duoneb -) 1 amp NEB RQID [facility] Last Admin: 09/20/18 08:33 Dose: 1 amp Alprazolam (Xanax -) 0.25 mg PO Q8H PRN PRN Reason: ANXIETY Apixaban (Eliquis -) 5 mg PO BID [facility] Last Admin: 09/19/18 22:19 Dose: 5 mg Baclofen (Lioresal -) 20 mg PO TID [facility] Last Admin: 09/20/18 06:23 Dose: 20 mg Diltiazem HCl (Cardizem Cd -) 240 mg PO BID [facility] Last Admin: 09/19/18 22:18 Dose: 240 mg Doxepin HCl (Sinequan -) 25 mg PO DAILY [facility] Last Admin: 09/19/18 10:10 Dose: 25 mg Gabapentin 300 mg/ Gabapentin (200 mg) 500 mg PO TID [facility] Last Admin: 09/20/18 06:23 Dose: 500 mg Hydromorphone HCl (Dilaudid -) 4 mg PO Q8H PRN PRN Reason: PAIN LEVEL 6-10 Last Admin: 09/20/18 06:27 Dose: 4 mg Vancomycin HCl (Vancomycin (Pre-Docked)) 1,000 mg in 250 mls @ 166.667 mls/hr IVPB BID@0100,1300 [facility]; Protocol Last Admin: 09/20/18 00:12 Dose: 166.667 mls/hr Ceftriaxone Sodium 2 gm/ (Dextrose) 100 mls @ 200 mls/hr IVPB DAILY [facility]; Protocol Last Admin: 09/19/18 16:52 Dose: 200 mls/hr Insulin Aspart (Novolog Vial Sliding Scale -) 1 vial SQ ACHS [facility]; Protocol Last Admin: 09/20/18 06:24 Dose: Not Given Insulin Detemir (Levemir Vial) 35 units SQ BID@0700,2200 [facility] Last Admin: 09/20/18 06:37 Dose: 35 units Levothyroxine Sodium (Synthroid -) 50 mcg PO DAILY@0700 [facility] Last Admin: 09/20/18 06:23 Dose: 50 mcg Loratadine (Claritin -) 10 mg PO [facility] Last Admin: 09/19/18 22:19 Dose: 10 mg Methylnaltrexone [place] (Relistor -) 12 mg SQ DAILY [facility] Last Admin: 09/19/18 16:50 Dose: Not Given Montelukast Sodium (Singulair -) 10 mg PO [facility] Last Admin: 09/19/18 22:19 Dose: 10 mg Non-Formulary Medication (Mirabegron [Myrbetriq]) 50 mg PO DAILY [facility] Non-Formulary Medication (Vortioxetine Hydrobromide [Trintellix]) 20 mg PO DAILY [facility] Ondansetron HCl (Zofran Injection) 4 mg IVPUSH Q6H PRN PRN Reason: NAUSEA AND/OR VOMITING Last Admin: 09/18/18 22:02 Dose: 4 mg Ranitidine HCl (Zantac -) 300 mg PO DAILY [facility] Last Admin: 09/19/18 10:10 Dose: 300 mg Rosuvastatin Calcium (Crestor -) 10 mg PO [facility] Last Admin: 09/19/18 22:20 Dose: 10 mg Topiramate (Topamax -) 100 mg PO DAILY [facility] Last Admin: 09/19/18 10:10 Dose: 100 mg Venlafaxine HCl (Effexor Xr -) 75 mg PO DAILY@0800 [facility] Last Admin: 09/20/18 09:03 Dose: 75 mg Zolpidem Tartrate (Ambien -) 10 mg PO HS PRN PRN Reason: INSOMNIA Last Admin: 09/19/18 22:20 Dose: 10 mg - Objective Vital Signs: Vital Signs Temperature 99.0 F 09/20/18 04:00 Pulse Rate 106 H 09/20/18 04:00 Respiratory Rate 20 09/20/18 04:00 Blood Pressure 106/52 L 09/20/18 04:00 O2 Sat by Pulse Oximetry (%) 98 09/18/18 20:41 Constitutional: Yes: Mild Distress Eyes: Yes: WNL HENT: Yes: WNL Neck: Yes: Other (TRACHEOSTOMY) Cardiovascular: Yes: WNL Respiratory: Yes: Other (TRACH-COLLAR ON 02 SUPPORT) Gastrointestinal: Yes: WNL Genitourinary: Yes: Incontinence Musculoskeletal: Yes: Muscle Weakness Extremities: Yes: Other Edema: Yes Peripheral Pulses WNL: Yes Integumentary: Yes: Other Wound/Incision: Yes: Other Neurological: Yes: Pre-Existing Deficit ...Motor Strength: LLE, RLE Psychiatric: Yes: Agitated Labs: CBC, BMP 09/19/18 09:15 09/20/18 06:00 Problem List - Problems (1) Elevated lactic acid level Code(s): R79.89 - OTHER SPECIFIED ABNORMAL FINDINGS OF BLOOD CHEMISTRY (2) Sepsis Code(s): A41.9 - SEPSIS, UNSPECIFIED ORGANISM (3) UTI (urinary tract infection) Code(s): N39.0 - URINARY TRACT INFECTION, SITE NOT SPECIFIED (4) Abdominal pain Code(s): R10.9 - UNSPECIFIED ABDOMINAL PAIN (5) Acute and chronic respiratory failure with hypoxia Code(s): J96.21 - ACUTE AND CHRONIC RESPIRATORY FAILURE WITH HYPOXIA (6) Anemia Code(s): D64.9 - ANEMIA, UNSPECIFIED (7) Chronic respiratory failure Code(s): J96.10 - CHRONIC RESPIRATORY FAILURE, UNSP W HYPOXIA OR HYPERCAPNIA (8) Diabetes Code(s): E11.9 - TYPE 2 DIABETES MELLITUS WITHOUT COMPLICATIONS (9) Hypothyroid Code(s): E03.9 - HYPOTHYROIDISM, UNSPECIFIED Qualifiers: Hypothyroidism type: unspecified Qualified Code(s): E03.9 - Hypothyroidism , unspecified (10) Anxiety Code(s): F41.9 - ANXIETY DISORDER, UNSPECIFIED (11) Bipolar 2 disorder Code(s): F31.81 - BIPOLAR II DISORDER (12) COPD (chronic obstructive pulmonary disease) Code(s): J44.9 - CHRONIC OBSTRUCTIVE PULMONARY DISEASE, UNSPECIFIED Qualifiers: COPD type: unspecified COPD Qualified Code(s): J44.9 - Chronic obstructive pulmonary disease, unspecified (13) Depression with anxiety Code(s): F41.8 - OTHER SPECIFIED ANXIETY DISORDERS (14) Diabetes mellitus, insulin dependent (IDDM), uncontrolled Code(s): E10.65 - TYPE 1 DIABETES MELLITUS WITH HYPERGLYCEMIA (15) Neuropathy Code(s): G62.9 - POLYNEUROPATHY, UNSPECIFIED (16) Paroxysmal atrial fibrillation Code(s): I48.0 - PAROXYSMAL ATRIAL FIBRILLATION Assessment/Plan IV ABX PER ID REPEAT URINE CX RESP SUPPORT CT HEAD R/O ACUTE PROCESS PSYCH CONSULT ABG DONE NO CHANGES, CONT 02 SUPPORT VIA TRACH COLLAR DVT PROPHYLAXIS NEBS
[2018-09-20 09:31] LABS: BASO % 1.2 % (0-2.0); EOS % 5.3 % (0-4.5); HEMATOCRIT 27.8 % (32.4-45.2); HEMOGLOBIN 8.1 GM/dL (10.7-15.3); LYMPH % 16.6 % (8-40); MCH 21.7 pg (25.7-33.7); MEAN CELL VOLUME 74.8 fl (80-96); MEAN PLT VOLUME 8.9 fl (7.5-11.1); NEUT % 62.9 % (42.8-82.8); PLATELET COUNT 314 K/MM3 (134-434); RBC 3.72 M/mm3 (3.60-5.2); RDW 20.8 % (11.6-15.6); WHITE BLOOD COUNT 7.5 K/mm3 (4.0-10.0)
[2018-09-20] MEDS ORDERED: PIPERACILLIN/TAZOB 3.375 GM 3.375 GM in DEXTROSE 5%-WATER - 50 ML IVPB SCH (10:00)
[2018-09-20] MEDS: CEFTRIAXONE 2 GM in DEXTROSE 5%-WATER 100 ML IVPB SCH (10:12)
[2018-09-20] MEDS: RANITIDINE HCL 150 MG TABLET (FP) PO SCH ×2 (10:13→10:23)
[2018-09-20] MEDS: Methylnaltrexone Bromide 12 MG/0.6 ML KIT SQ SCH (10:14)
[2018-09-20] MEDS: TOPIRAMATE 100 MG TABLET PO SCH (10:22)
[2018-09-20] MEDS: DOXEPIN HCL 25 MG CAPSULE PO SCH (10:22)
[2018-09-20] MEDS: APIXABAN 5 MG TABLET PO SCH ×2 (10:22→22:29)
[2018-09-20] MEDS ORDERED: LORazepam 2 MG/ML SDV VIAL IVPUSH ONE (12:15)
--- NOTE | 2018-09-20 12:24 | PN ---
Progress Note (short form) - Note Progress Note: Ongoing GI issues. Breathing feels ok. NAD on Trach collar. Intake & Output 09/17/18 09/18/18 09/19/18 09/20/18 23:59 23:59 23:59 23:59 Intake Total 100 200 200 Balance 100 200 200 Weight 161 lb 4 oz Last Vital Signs Temp Pulse Resp BP Pulse Ox 99.1 F 122 H 20 107/62 93 L 09/20/18 10:00 09/20/18 10:00 09/20/18 10:00 09/20/18 10:00 09/20/18 09:00 Active Medications Acetaminophen (Tylenol -) 650 mg PO Q6H PRN PRN Reason: PAIN LEVEL 1-5 OR FEVER Albuterol Sulfate (Ventolin 0.083% Nebulizer Soln -) 1 amp NEB Q4H PRN PRN Reason: SHORT OF BREATH/WHEEZING Albuterol/Ipratropium (Duoneb -) 1 amp NEB RQID [facility] Last Admin: 09/20/18 08:33 Dose: 1 amp Alprazolam (Xanax -) 0.25 mg PO Q8H PRN PRN Reason: ANXIETY Apixaban (Eliquis -) 5 mg PO BID [facility] Last Admin: 09/20/18 10:22 Dose: Not Given Baclofen (Lioresal -) 20 mg PO TID [facility] Last Admin: 09/20/18 06:23 Dose: 20 mg Diltiazem HCl (Cardizem Cd -) 240 mg PO BID [facility] Last Admin: 09/20/18 10:13 Dose: Not Given Doxepin HCl (Sinequan -) 25 mg PO DAILY [facility] Last Admin: 09/20/18 10:22 Dose: Not Given Gabapentin 300 mg/ Gabapentin (200 mg) 500 mg PO TID [facility] Last Admin: 09/20/18 06:23 Dose: 500 mg Hydromorphone HCl (Dilaudid -) 4 mg PO Q8H PRN PRN Reason: PAIN LEVEL 6-10 Last Admin: 09/20/18 06:27 Dose: 4 mg Vancomycin HCl (Vancomycin (Pre-Docked)) 1,000 mg in 250 mls @ 166.667 mls/hr IVPB BID@0100,1300 [facility]; Protocol Last Admin: 09/20/18 00:12 Dose: 166.667 mls/hr Ceftriaxone Sodium 2 gm/ (Dextrose) 100 mls @ 200 mls/hr IVPB DAILY [facility]; Protocol Last Admin: 09/20/18 10:12 Dose: 200 mls/hr Insulin Aspart (Novolog Vial Sliding Scale -) 1 vial SQ ACHS [facility]; Protocol Last Admin: 09/20/18 11:52 Dose: Not Given Insulin Detemir (Levemir Vial) 35 units SQ BID@0700,2200 [facility] Last Admin: 09/20/18 06:37 Dose: 35 units Levothyroxine Sodium (Synthroid -) 50 mcg PO DAILY@0700 [facility] Last Admin: 09/20/18 06:23 Dose: 50 mcg Loratadine (Claritin -) 10 mg PO HS [facility] Last Admin: 09/19/18 22:19 Dose: 10 mg Methylnaltrexone [place] (Relistor -) 12 mg SQ DAILY [facility] Last Admin: 09/20/18 10:14 Dose: 12 mg Montelukast Sodium (Singulair -) 10 mg PO HS [facility] Last Admin: 09/19/18 22:19 Dose: 10 mg Non-Formulary Medication (Mirabegron [Myrbetriq]) 50 mg PO DAILY [facility] Non-Formulary Medication (Vortioxetine Hydrobromide [Trintellix]) 20 mg PO DAILY [facility] Ondansetron HCl (Zofran Injection) 4 mg IVPUSH Q6H PRN PRN Reason: NAUSEA AND/OR VOMITING Last Admin: 09/18/18 22:02 Dose: 4 mg Ranitidine HCl (Zantac -) 300 mg PO DAILY [facility] Last Admin: 09/20/18 10:23 Dose: Not Given Rosuvastatin Calcium (Crestor -) 10 mg PO HS [facility] Last Admin: 09/19/18 22:20 Dose: 10 mg Topiramate (Topamax -) 100 mg PO DAILY [facility] Last Admin: 09/20/18 10:22 Dose: Not Given Venlafaxine HCl (Effexor Xr -) 75 mg PO DAILY@0800 [facility] Last Admin: 09/20/18 10:23 Dose: Not Given Zolpidem Tartrate (Ambien -) 10 mg PO HS PRN PRN Reason: INSOMNIA Last Admin: 09/19/18 22:20 Dose: 10 mg Constitutional: Yes: Somnolent, NAD Eyes: Yes: Conjunctiva Clear, EOM Intact HENT: Yes: Atraumatic, Normocephalic Neck: Yes: Supple, Trachea Midline Cardiovascular: Yes: Regular Rate and Rhythm Respiratory: Yes: Diminished (distant breath sounds) Gastrointestinal: Yes: Normal Bowel Sounds, Soft, Abdomen, Obese. No: Tenderness Edema: No Neurological: Yes: Oriented Labs: Laboratory Results - last 24 hr 09/19/18 09/19/18 09/19/18 12:10 16:51 22:17 WBC RBC Hgb Hct MCV MCH MCHC RDW Plt Count MPV Absolute Neuts (auto) Neutrophils % Lymphocytes % Monocytes % Eosinophils % Basophils % Nucleated RBC % Sodium Potassium Chloride Carbon Dioxide Anion Gap BUN Creatinine Creat Clearance w eGFR POC Glucometer 176 186 214 Random Glucose Calcium Total Bilirubin AST ALT Alkaline Phosphatase Total Protein Albumin 09/20/18 09/20/18 09/20/18 06:00 06:00 06:11 WBC 7.5 RBC 3.72 Hgb 8.1 L Hct 27.8 L MCV 74.8 L MCH 21.7 L MCHC 29.0 L RDW 20.8 H Plt Count 314 MPV 8.9 Absolute Neuts (auto) 4.7 Neutrophils % 62.9 Lymphocytes % 16.6 Monocytes % 14.0 H Eosinophils % 5.3 H Basophils % 1.2 Nucleated RBC % 0 Sodium 143 Potassium 3.9 Chloride 107 Carbon Dioxide 28 Anion Gap 9 BUN 7 Creatinine 0.7 Creat Clearance w eGFR > 60 POC Glucometer 144 Random Glucose 147 H Calcium 7.8 L Total Bilirubin 0.2 AST 24 ALT 22 Alkaline Phosphatase 173 H Total Protein 5.9 L Albumin 2.3 L 09/20/18 11:32 WBC RBC Hgb Hct MCV MCH MCHC RDW Plt Count MPV Absolute Neuts (auto) Neutrophils % Lymphocytes % Monocytes % Eosinophils % Basophils % Nucleated RBC % Sodium Potassium Chloride Carbon Dioxide Anion Gap BUN Creatinine Creat Clearance w eGFR POC Glucometer 167 Random Glucose Calcium Total Bilirubin AST ALT Alkaline Phosphatase Total Protein Albumin Problem List - Problems (1) UTI (urinary tract infection) Code(s): N39.0 - URINARY TRACT INFECTION, SITE NOT SPECIFIED (2) Pneumonia Code(s): J18.9 - PNEUMONIA, UNSPECIFIED ORGANISM Qualifiers: Pneumonia type: due to unspecified organism Laterality: unspecified laterality Lung location: unspecified part of lung Qualified Code(s): J18.9 - Pneumonia, unspecified organism Assessment/Plan UTI r/o Pneumonia Chronic Hypoxic and Hypercapneic Respiratory Failure Asthma/COPD HTN Paroxysmal Atrial Fibrillation DM Hypothyroidism Chronic Pain - continue antibiotics per ID - f/u cultures - inhaled bronchodilators standing and PRN - O2 to keep Spo2 >90% - Daily Medrol for CAP - rate controlled - continue anticoagulation Dr Castaneda
--- NOTE | 2018-09-20 14:34 | CON.PSY ---
Psychiatry Consult Chief Complaint: 52 year old female, known to me from previous admissions. History of mant chronic medical problem nd patient has trach. Symptoms: reports: Restlessness, Inability to Control Temper - Previous Psychiatric Treatment Outpatient: None Inpatient: None - Reason for Previous Treatment Reason for Previous Treatment: Biploar Illness - Current Medications Current Medications: Active Medications Acetaminophen (Tylenol -) 650 mg PO Q6H PRN PRN Reason: PAIN LEVEL 1-5 OR FEVER Albuterol Sulfate (Ventolin 0.083% Nebulizer Soln -) 1 amp NEB Q4H PRN PRN Reason: SHORT OF BREATH/WHEEZING Albuterol/Ipratropium (Duoneb -) 1 amp NEB RQID [facility] Last Admin: 09/20/18 12:47 Dose: 1 amp Alprazolam (Xanax -) 0.25 mg PO Q8H PRN PRN Reason: ANXIETY Apixaban (Eliquis -) 5 mg PO BID [facility] Last Admin: 09/20/18 10:22 Dose: Not Given Baclofen (Lioresal -) 20 mg PO TID [facility] Last Admin: 09/20/18 13:14 Dose: Not Given Diltiazem HCl (Cardizem Cd -) 240 mg PO BID [facility] Last Admin: 09/20/18 10:13 Dose: Not Given Doxepin HCl (Sinequan -) 25 mg PO DAILY [facility] Last Admin: 09/20/18 10:22 Dose: Not Given Gabapentin 300 mg/ Gabapentin (200 mg) 500 mg PO TID [facility] Last Admin: 09/20/18 13:14 Dose: Not Given Hydromorphone HCl (Dilaudid -) 4 mg PO Q8H PRN PRN Reason: PAIN LEVEL 6-10 Last Admin: 09/20/18 06:27 Dose: 4 mg Vancomycin HCl (Vancomycin (Pre-Docked)) 1,000 mg in 250 mls @ 166.667 mls/hr IVPB BID@0100,1300 [facility]; Protocol Last Admin: 09/20/18 13:07 Dose: 166.667 mls/hr Ceftriaxone Sodium 2 gm/ (Dextrose) 100 mls @ 200 mls/hr IVPB DAILY [facility]; Protocol Last Admin: 09/20/18 10:12 Dose: 200 mls/hr Insulin Aspart (Novolog Vial Sliding Scale -) 1 vial SQ ACHS [facility]; Protocol Last Admin: 09/20/18 11:52 Dose: Not Given Insulin Detemir (Levemir Vial) 35 units SQ BID@0700,2200 [facility] Last Admin: 09/20/18 06:37 Dose: 35 units Levothyroxine Sodium (Synthroid -) 50 mcg PO DAILY@0700 [facility] Last Admin: 09/20/18 06:23 Dose: 50 mcg Loratadine (Claritin -) 10 mg PO HS [facility] Last Admin: 09/19/18 22:19 Dose: 10 mg Methylnaltrexone [place] (Relistor -) 12 mg SQ DAILY [facility] Last Admin: 09/20/18 10:14 Dose: 12 mg Montelukast Sodium (Singulair -) 10 mg PO HS [facility] Last Admin: 09/19/18 22:19 Dose: 10 mg Non-Formulary Medication (Mirabegron [Myrbetriq]) 50 mg PO DAILY [facility] Non-Formulary Medication (Vortioxetine Hydrobromide [Trintellix]) 20 mg PO DAILY [facility] Olanzapine (Zyprexa -) 5 mg PO BID [facility] Ondansetron HCl (Zofran Injection) 4 mg IVPUSH Q6H PRN PRN Reason: NAUSEA AND/OR VOMITING Last Admin: 09/18/18 22:02 Dose: 4 mg Ranitidine HCl (Zantac -) 300 mg PO DAILY [facility] Last Admin: 09/20/18 10:23 Dose: Not Given Rosuvastatin Calcium (Crestor -) 10 mg PO HS [facility] Last Admin: 09/19/18 22:20 Dose: 10 mg Topiramate (Topamax -) 100 mg PO DAILY [facility] Last Admin: 09/20/18 10:22 Dose: Not Given Venlafaxine HCl (Effexor Xr -) 75 mg PO DAILY@0800 [facility] Last Admin: 09/20/18 10:23 Dose: Not Given Zolpidem Tartrate (Ambien -) 10 mg PO HS PRN PRN Reason: INSOMNIA Last Admin: 09/19/18 22:20 Dose: 10 mg - Allergies Allergies: Allergies Allergy/AdvReac Type Severity Reaction Status Date / Time oxycodone [Oxycodone] Allergy Severe Nausea Verified 09/18/18 15:33 oxycodone HCl [From Percocet] Allergy Severe Nausea Verified 09/18/18 15:33 aspirin Allergy Mild Verified 09/18/18 15:33 blueberry [Blueberry] Allergy Mild Swelling Verified 09/18/18 15:33 fentanyl Allergy Mild Vomiting Verified 09/18/18 15:33 ibuprofen Allergy Swelling Verified 09/18/18 15:33 - Current Living Status Usual Living Arrangement: With Parent - Current Mental Status Evaluation Appearance: Disheveled Attitude: Guarded - Affect Affect: Constrictive Appropriateness: Not Appropriate - Mood Mood: Angry - Speech/Language Expressive: Delayed - Psychomotor Activity Psychomotor Activity: Hyperactive - Thought Process Thought Process: Circumstantial - Thought Content Hallucinations: Absent Delusions: Absent - Self Perception Self Perception: Depersonalization - Cognition Attention: Diminished Memory, Short Term: 1/3 Memory, Remote with Promptin/3 - Concentration Serial Sevens Intact: No Simple Calculations Intact: No - Abstraction Proverb Interpretation: Impaired Judgement: Moderately Impaired - Insight Insight: Impaired - Impulse Control Impulse Control: Moderately Impaired - Suicidal Ideation Suicidal Ideation: No - Homicidal Ideation Homicidal Ideation: No Assessment/Plan 1) zyprexa 5mg po bid.
[2018-09-20 15:40] LABS: ARTERIAL BLOOD GAS BASE EXCESS 2.1 meq/l (-2-2); ARTERIAL BLOOD GAS PCO2 48.8 mmHg (35-45); ARTERIAL BLOOD GAS PO2 89.3 mmHg (80-100); ARTERIAL BLOOD GAS pH 7.37 (7.35-7.45)
--- NOTE | 2018-09-20 15:45 | PN ---
Progress Note, Physician Chief Complaint: Awake but confused and slightly agitated Afebrile BC presumed MRSA - Current Medication List Current Medications: Active Medications Acetaminophen (Tylenol -) 650 mg PO Q6H PRN PRN Reason: PAIN LEVEL 1-5 OR FEVER Albuterol Sulfate (Ventolin 0.083% Nebulizer Soln -) 1 amp NEB Q4H PRN PRN Reason: SHORT OF BREATH/WHEEZING Albuterol/Ipratropium (Duoneb -) 1 amp NEB RQID [facility] Last Admin: 09/20/18 12:47 Dose: 1 amp Alprazolam (Xanax -) 0.25 mg PO Q8H PRN PRN Reason: ANXIETY Apixaban (Eliquis -) 5 mg PO BID [facility] Last Admin: 09/20/18 10:22 Dose: Not Given Baclofen (Lioresal -) 20 mg PO TID [facility] Last Admin: 09/20/18 13:14 Dose: Not Given Diltiazem HCl (Cardizem Cd -) 240 mg PO BID [facility] Last Admin: 09/20/18 10:13 Dose: Not Given Doxepin HCl (Sinequan -) 25 mg PO DAILY [facility] Last Admin: 09/20/18 10:22 Dose: Not Given Gabapentin 300 mg/ Gabapentin (200 mg) 500 mg PO TID [facility] Last Admin: 09/20/18 13:14 Dose: Not Given Hydromorphone HCl (Dilaudid -) 4 mg PO Q8H PRN PRN Reason: PAIN LEVEL 6-10 Last Admin: 09/20/18 06:27 Dose: 4 mg Vancomycin HCl (Vancomycin (Pre-Docked)) 1,000 mg in 250 mls @ 166.667 mls/hr IVPB BID@0100,1300 [facility]; Protocol Last Admin: 09/20/18 13:07 Dose: 166.667 mls/hr Ceftriaxone Sodium 2 gm/ (Dextrose) 100 mls @ 200 mls/hr IVPB DAILY [facility]; Protocol Last Admin: 09/20/18 10:12 Dose: 200 mls/hr Insulin Aspart (Novolog Vial Sliding Scale -) 1 vial SQ ACHS [facility]; Protocol Last Admin: 09/20/18 11:52 Dose: Not Given Insulin Detemir (Levemir Vial) 35 units SQ BID@0700,2200 [facility] Last Admin: 09/20/18 06:37 Dose: 35 units Levothyroxine Sodium (Synthroid -) 50 mcg PO DAILY@0700 [facility] Last Admin: 09/20/18 06:23 Dose: 50 mcg Loratadine (Claritin -) 10 mg PO HS [facility] Last Admin: 09/19/18 22:19 Dose: 10 mg Methylnaltrexone [place] (Relistor -) 12 mg SQ DAILY [facility] Last Admin: 09/20/18 10:14 Dose: 12 mg Montelukast Sodium (Singulair -) 10 mg PO HS [facility] Last Admin: 09/19/18 22:19 Dose: 10 mg Non-Formulary Medication (Mirabegron [Myrbetriq]) 50 mg PO DAILY [facility] Non-Formulary Medication (Vortioxetine Hydrobromide [Trintellix]) 20 mg PO DAILY [facility] Olanzapine (Zyprexa -) 5 mg PO BID [facility] Ondansetron HCl (Zofran Injection) 4 mg IVPUSH Q6H PRN PRN Reason: NAUSEA AND/OR VOMITING Last Admin: 09/18/18 22:02 Dose: 4 mg Ranitidine HCl (Zantac -) 300 mg PO DAILY [facility] Last Admin: 09/20/18 10:23 Dose: Not Given Rosuvastatin Calcium (Crestor -) 10 mg PO HS [facility] Last Admin: 09/19/18 22:20 Dose: 10 mg Topiramate (Topamax -) 100 mg PO DAILY [facility] Last Admin: 09/20/18 10:22 Dose: Not Given Venlafaxine HCl (Effexor Xr -) 75 mg PO DAILY@0800 [facility] Last Admin: 09/20/18 10:23 Dose: Not Given Zolpidem Tartrate (Ambien -) 10 mg PO HS PRN PRN Reason: INSOMNIA Last Admin: 09/19/18 22:20 Dose: 10 mg - Objective Vital Signs: Vital Signs Temperature 98.8 F 09/20/18 13:42 Pulse Rate 119 H 09/20/18 13:42 Respiratory Rate 20 09/20/18 13:42 Blood Pressure 108/62 09/20/18 13:42 O2 Sat by Pulse Oximetry (%) 93 L 09/20/18 09:00 Constitutional: Yes: No Distress, Obese Eyes: Yes: Conjunctiva Clear Cardiovascular: Yes: Regular Rate and Rhythm, S1, S2 Respiratory: Yes: Rhonchi, Wheezes Gastrointestinal: Yes: Normal Bowel Sounds, Soft, Abdomen, Obese. No: Tenderness Edema: Yes Labs: CBC, BMP 09/20/18 06:00 09/20/18 06:00 Assessment/Plan Presumed MRSA bacteremia ? toxic metabolic encehalopathy Exacerbation COPD Repeat BC Continue vancomycin Echocardiogram
[2018-09-20 16:00] LABS: ALLENS TEST POSITIVE
--- NOTE | 2018-09-20 20:15 | CONS ---
DATE OF CONSULTATION: DATE OF DICTATION: 09/20/2018 The patient is a 52-year-old female evaluated for positive blood culture. She was admitted to the hospital on September 18, 2018, with complaints of poor appetite, decreased oral intake, nausea, vomiting, diarrhea. She was admitted to the hospital where initial workup was performed. The chest x-ray showed possible left-sided pneumonia. Blood cultures were obtained and are now positive for gram-positive cocci in clusters in 2 out of 4 bottles. She is awake but offers no focal complaint. No reports of high-grade fever or shaking chills. She is chronically dyspneic. No reported increased cough, sputum production. Positive nausea, vomiting, diarrhea. No complaints of dysuria. PAST MEDICAL HISTORY: Positive for COPD, hypertension, asthma, paroxysmal atrial fibrillation, diabetes mellitus, hypothyroidism. ALLERGIES: OXYCODONE, ASPIRIN, and FENTANYL. SOCIAL HISTORY: She resides in the community. She is a nonsmoker, nondrinker. REVIEW OF SYSTEMS: Neurologic: No loss of consciousness, seizure activity, focal weakness. Cardiac: Negative chest pain or palpitations. Respiratory: As per HPI. Gastrointestinal: As per HPI. Genitourinary: Negative for urinary tract infection. LABORATORY DATA: White count 6.2, hematocrit 27.3, platelet count 335. Creatinine 0.6. Urinalysis: Nine white cells. Lactic acid 3.5. Blood cultures: Gram-positive cocci in clusters in 2 out of 4 bottles. Chest x-ray reveals possible left perihilar infiltrate. PHYSICAL EXAMINATION: General: The patient is awake and alert, slightly dyspneic at rest. Vital Signs: Temperature 97.8, T-max 100. Blood pressure 112/68, pulse 119, regular. Respirations 19 per minute. HEENT: Sclerae are anicteric. Patient is cushingoid in appearance. Cardiovascular: Heart sounds S1, S2. Lungs: Bilateral rhonchi and wheezing. Abdomen: Obese, soft, nontender. No suprapubic or flank tenderness. Extremities: Positive for edema. IMPRESSION: 1. Positive blood cultures, rule out staphylococcus sepsis. 2. Acute exacerbation of chronic obstructive pulmonary disease. 3. Possible pneumonia. 4. Lactic acidosis. PLAN: Await identification of blood isolate. Pending cultures, empiric antibiotic coverage with vancomycin and ceftriaxone. Further recommendations pending cultures. Will follow. Thank you for the kind referral. DENISHA ALMANZAR M.D. [id number]
[2018-09-20] MEDS: ROSUVASTATIN CA 10 MG TABLET (FP) PO SCH (22:28)
[2018-09-20] MEDS: LORATADINE 10 MG TABLET PO SCH (22:29)
[2018-09-20] MEDS: ALPRAZolam 0.25 MG TABLET PO PRN (22:44)
[2018-09-20] MEDS: MONTELUKAST NA 10 MG TABLET PO SCH (22:49)
[2018-09-20] MEDS: OLANZapine 5 MG TABLET PO SCH (23:50)
[2018-09-21] MEDS: VANCOMYCIN 1 GRAM (PRE-DOCKED) 1,000 MG/250 ML BAG IVPB SCH ×2 (01:10→14:12)
[2018-09-21] MEDS ORDERED: GABAPENTIN 100 MG CAPSULE (FP) ONE ×3 (05:38→22:32)
[2018-09-21] MEDS ORDERED: GABAPENTIN 300 MG CAPSULE (FP) ONE ×3 (05:38→22:32)
[2018-09-21] MEDS: BACLOFEN 10 MG TABLET (FP) PO SCH ×3 (05:43→22:37)
[2018-09-21] MEDS: GABAPENTIN 300 MG, GABAPENTIN 200 MG PO SCH ×3 (05:43→22:37)
[2018-09-21] MEDS: LEVOTHYROXINE NA 50 MCG TABLET (FP) PO SCH (06:03)
[2018-09-21] MEDS: INSULIN SLIDING SCALE (NOVOLOG) 1 VIAL SQ SCH ×4 (06:39→23:01)
[2018-09-21] MEDS: INSULIN (LEVEMIR) 100 UNITS/ML UNITS SQ SCH ×2 (06:40→22:42)
[2018-09-21] MEDS ORDERED: PT OWN MED DRAWER 7, Y5N ONE ×2 (07:00→08:35)
[2018-09-21] MEDS ORDERED: INSULIN (NOVOLOG) ASPART 100 UNITS/ML 10ML VIAL ONE (07:06)
[2018-09-21 07:50] LABS: ALBUMIN 2.4 g/dl (3.4-5.0); ALK PHOS 178 U/L (45-117); ANION GAP 8 MMOL/L (8-16); BILIRUBIN,TOTAL 0.3 mg/dL (0.2-1); BLOOD UREA NITROGEN 9 mg/dL (7-18); CALCIUM 8.4 mg/dL (8.5-10.1); CHLORIDE 105 mmol/L (98-107); CO2 30 mmol/L (21-32); GLUCOSE,RANDOM 187 mg/dL (74-106); POTASSIUM 3.5 mmol/L (3.5-5.1); SGOT/AST 22 U/L (15-37); SGPT/ALT 21 U/L (13-61); SODIUM 144 mmol/L (136-145); TOT PROT 5.8 g/dl (6.4-8.2)
[2018-09-21] MEDS: ALBUTEROL SO4 2.5/IPRATROPIUM 0.5 INH SOL 3 ML VIAL.NEB. NEB SCH ×3 (08:00→20:15)
[2018-09-21] MEDS ORDERED: DEXTROSE 5%-WATER 100 ML IVPB ONE (08:35)
[2018-09-21] MEDS: ALPRAZolam 0.25 MG TABLET PO PRN (09:24)
[2018-09-21] MEDS: RANITIDINE HCL 150 MG TABLET (FP) PO SCH (09:24)
[2018-09-21] MEDS: OLANZapine 5 MG TABLET PO SCH ×2 (09:25→23:01)
[2018-09-21] MEDS: DOXEPIN HCL 25 MG CAPSULE PO SCH (09:25)
[2018-09-21] MEDS: TOPIRAMATE 100 MG TABLET PO SCH (09:25)
[2018-09-21] MEDS: VENLAFAXINE HCL 75 MG E.R. CAPSULES (FP) PO SCH (09:25)
[2018-09-21] MEDS: APIXABAN 5 MG TABLET PO SCH ×2 (09:25→22:37)
--- NOTE | 2018-09-21 09:25 | CONSULT ---
Consult - text type - Consultation Consultation Note: Neurology Chief Complaint: Nausea, Vomiting, Diarrhea History of Present Illness: 52 y/o woman who presented to the ED with complaints of N/V/D x 2 days now resolved, but reported having a decreased appetite and generalized malaise. Patient reported that she had stomach flu-like symptoms as well. Patient denies fever, dizziness, COX, CP, dysuria. I was consulted because of tremor that was reported and in speaking with nurse, the patient has underlying anxiety and restlessness. She can be irritable and aggitated, this AM was calm and cooperative for me. Did complete CT head which did not show acute changes. Is being treated for UTI which can precipitate tremor. Also with underlying neuropathy. - Past Medical History Cardiovascular: Yes: AFIB (Paroxysmal), HTN, Hyperlipdemia Pulmonary: Yes: Asthma, COPD, O2 Dependent, Previously Intubated Gastrointestinal: Yes: GI Bleed Renal/: Yes: Cancer (Uterine), Other ([place] in the past) Heme/Onc: Yes: Other (BCA, Uterine Ca) Infectious Disease: Yes: C-Diff (june 2014), Other (Osteomyelitis of thoracic spine) Psych: Yes: Anxiety, Bipolar, Depression Musculoskeletal: Yes: Chronic low back pain, Other (multiple vertebral fractures ) Endocrine: Yes: Diabetes Mellitus, Hypothyroidism - Past Surgical History Past Surgical History: Yes: Appendectomy, Colectomy (By description, right colon resection with anastamosis noted on colonoscopy 2013), Hysterectomy (ADE/ BSO), Stent - Smoking History Smoking history: Former smoker Have you smoked in the past 12 months: No Aproximately how many cigarettes per day: 3 If you are a former smoker, when did you quit?: 2015 - Alcohol/Substance Use Hx Alcohol Use: No - Social History 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) History of Recent Travel: No Home Medications - Allergies Allergies/Adverse Reactions: Allergies Allergy/AdvReac Type Severity Reaction Status Date / Time oxycodone [Oxycodone] Allergy Severe Nausea Verified 09/18/18 15:33 oxycodone HCl [From Percocet] Allergy Severe Nausea Verified 09/18/18 15:33 aspirin Allergy Mild Verified 09/18/18 15:33 blueberry [Blueberry] Allergy Mild Swelling Verified 09/18/18 15:33 fentanyl Allergy Mild Vomiting Verified 09/18/18 15:33 ibuprofen Allergy Swelling Verified 09/18/18 15:33 - Home Medications Home Medications: Ambulatory Orders Albuterol Sulfate Inhaler - [Ventolin HFA Inhaler -] 2 puff IH Q4H PRN #0 inhaler 11/29/16 Acetaminophen [Tylenol .Regular Strength -] 650 mg PO Q6H PRN #0 tablet Apixaban [Eliquis -] 5 mg PO BID tablet 04/29/17 Baclofen 20 mg PO TID 07/09/18 Diltiazem HCl [Diltiazem 24Hr Cd] 240 mg PO BID 07/09/18 Levocetirizine Dihydrochloride 5 mg PO HS 07/09/18 Levothyroxine [Synthroid -] 50 mcg PO DAILY 07/09/18 Rosuvastatin Calcium [Crestor] 10 mg PO DAILY 07/09/18 Venlafaxine HCl ER [Effexor Xr -] 75 mg PO DAILY 07/09/18 Famotidine 40 mg PO BID 08/07/18 Hydromorphone HCl 4 mg PO Q4H 08/07/18 Mirabegron [Myrbetriq] 50 mg PO DAILY 08/07/18 Montelukast Na [Singulair -] 10 mg PO HS 08/07/18 Alprazolam [Xanax] 0.25 mg PO TID #15 tablet MDD 3 08/15/18 Doxepin HCl [Sinequan -] 25 mg PO DAILY #30 capsule 08/15/18 Linaclotide [Linzess] 145 mcg PO DAILY #30 cap 08/15/18 Pantoprazole Sodium [Protonix -] 40 mg PO DAILY #30 tablet.ec 08/15/18 Topiramate [Topamax -] 100 mg PO DAILY #30 tablet 08/15/18 Vortioxetine Hydrobromide [Trintellix] 20 mg PO DAILY #30 tablet 08/15/18 Gabapentin [Neurontin -] 500 mg PO Q8H #21 capsule 08/30/18 Insulin (Novolog) [Novolog -] 0 units SQ AC 08/30/18 Ondansetron [Zofran -] 8 mg PO TID 08/30/18 Zolpidem Tartrate 10 mg PO HS MDD 1 09/04/18 Gabapentin [Neurontin -] 500 mg PO TID #90 capsule 09/08/18 Nitrofurantoin Monohyd/M-Cryst [Macrobid -] 100 mg PO BID #14 capsule 09/08/18 Ondansetron [Ondansetron Odt] 8 mg PO TID #90 tab.rapdis 09/09/18 Phenazopyridine HCl [Pyridium -] 100 mg PO ONCE #6 tablet 09/15/18 Fluconazole [Diflucan -] 200 mg PO DAILY #7 tablet 09/18/18 Family Disease History - Family Disease History Family Disease History: Diabetes: Mother (Alive: heart surgery), Heart Disease: Mother, [place]: Father (: leukemia), Other: Brother (2,Healthy), Sister (1, Healthy) Review of Systems - Review of Systems Constitutional: reports: Loss of Appetite Eyes: reports: No Symptoms HENT: reports: No Symptoms Neck: reports: No Symptoms Cardiovascular: reports: No Symptoms Respiratory: reports: No Symptoms Gastrointestinal: reports: Diarrhea, Nausea, Vomiting. denies: Melena, Vomiting Blood Breasts: reports: No Symptoms Reported Musculoskeletal: reports: No Symptoms Integumentary: reports: No Symptoms Neurological: reports: No Symptoms Endocrine: reports: No Symptoms Hematology/Lymphatic: reports: No Symptoms Psychiatric: reports: No Symptoms Physical Examination Vital Signs: Vital Signs Temperature 100.0 F H 09/18/18 17:29 Pulse Rate 100 H 09/18/18 19:17 Respiratory Rate 20 09/18/18 19:17 Blood Pressure 120/73 09/18/18 19:17 O2 Sat by Pulse Oximetry (%) 98 09/18/18 19:18 Constitutional: Yes: No Distress, Calm, Obese Eyes: Yes: WNL, Conjunctiva Clear, EOM Intact, PERRL HENT: Yes: WNL, Atraumatic, Normocephalic Neck: Yes: Supple, Other (trach with collar) Cardiovascular: Yes: Pulse Irregular, S1, S2 Respiratory: Yes: Wheezes (bases), Other (trach with collar) Gastrointestinal: Yes: Normal Bowel Sounds, Soft, Abdomen, Obese, Tenderness ( LMQ) Renal/: Yes: WNL Breast(s): Yes: WNL Musculoskeletal: Yes: WNL Extremities: Yes: WNL Edema: No Peripheral Pulses WNL: Yes Integumentary: Yes: Tattoos Neurological: Yes: WNL, Alert, Oriented, Cran Nerves II-XII Intact, moves all extremities, akathesia noted, finger to nose intact CBCD WBC 7.5 K/mm3 (4.0-10.0) 09/20/18 06:00 RBC 3.72 M/mm3 (3.60-5.2) 09/20/18 06:00 Hgb 8.1 GM/dL (10.7-15.3) L 09/20/18 06:00 Hct 27.8 % (32.4-45.2) L 09/20/18 06:00 MCV 74.8 fl (80-96) L 09/20/18 06:00 MCHC 29.0 g/dl (32.0-36.0) L 09/20/18 06:00 RDW 20.8 % (11.6-15.6) H 09/20/18 06:00 Plt Count 314 K/MM3 (134-434) 09/20/18 06:00 MPV 8.9 fl (7.5-11.1) 09/20/18 06:00 CMP Sodium 144 mmol/L (136-145) 09/21/18 06:15 Potassium 3.5 mmol/L (3.5-5.1) 09/21/18 06:15 Chloride 105 mmol/L (98-107) 09/21/18 06:15 Carbon Dioxide 30 mmol/L (21-32) 09/21/18 06:15 Anion Gap 8 MMOL/L (8-16) 09/21/18 06:15 BUN 9 mg/dL (7-18) 09/21/18 06:15 Creatinine 1.0 mg/dL (0.55-1.3) 09/21/18 06:15 Creat Clearance w eGFR 58.69 (>60) 09/21/18 06:15 Random Glucose 187 mg/dL (74-106) H 09/21/18 06:15 Calcium 8.4 mg/dL (8.5-10.1) L 09/21/18 06:15 Total Bilirubin 0.3 mg/dL (0.2-1) 09/21/18 06:15 AST 22 U/L (15-37) 09/21/18 06:15 ALT 21 U/L (13-61) 09/21/18 06:15 Alkaline Phosphatase 178 U/L (45-117) H 09/21/18 06:15 Total Protein 5.8 g/dl (6.4-8.2) L 09/21/18 06:15 Albumin 2.4 g/dl (3.4-5.0) L 09/21/18 06:[address] head reviewed Plan 52 y/o woman who presented to the ED with complaints of N/V/D x 2 days now resolved, but reported having a decreased appetite and generalized malaise. Patient reported that she had stomach flu-like symptoms as well. Patient denies fever, dizziness, COX, CP, dysuria. I was consulted because of tremor that was reported and in speaking with nurse, the patient has underlying anxiety and restlessness. She can be irritable and aggitated, this AM was calm and cooperative for me. Did complete CT head which did not show acute changes. Is being treated for UTI which can precipitate tremor. Also with underlying neuropathy. Recommend continued Tx for UTI, Abx as needed. Maintain adequate hydration. Can continue anxiolytic which would help with tremor. Consider muscle relaxant, low dose if needed, but would continue medical mgmt for now. Has hypothyroid, monitor TSH and thyroid levels, as hyperthyroid can precipitate this as well. Monitor glucose, maintain normal range. Avoid hypo/ hyperglycemia. Follow up psych rec'd.
[2018-09-21] MEDS: CEFTRIAXONE 2 GM in DEXTROSE 5%-WATER 100 ML IVPB SCH (09:31)
[2018-09-21] MEDS: ACETAMINOPHEN 325 MG TABLET (FP) PO PRN (09:31)
[2018-09-21 09:58] LABS: BASO % 1.2 % (0-2.0); EOS % 5.9 % (0-4.5); HEMATOCRIT 26.6 % (32.4-45.2); HEMOGLOBIN 7.7 GM/dL (10.7-15.3); LYMPH % 18.5 % (8-40); MCH 21.6 pg (25.7-33.7); MCHC 28.9 g/dl (32.0-36.0); MEAN CELL VOLUME 74.7 fl (80-96); MEAN PLT VOLUME 8.8 fl (7.5-11.1); MONO % 12.5 % (3.8-10.2); NEUT % 61.9 % (42.8-82.8); PLATELET COUNT 313 K/MM3 (134-434); RBC 3.56 M/mm3 (3.60-5.2); WHITE BLOOD COUNT 7.6 K/mm3 (4.0-10.0)
[2018-09-21] MEDS: Methylnaltrexone Bromide 12 MG/0.6 ML KIT SQ SCH (11:48)
--- NOTE | 2018-09-21 12:09 | PN ---
Progress Note (short form) - Note Progress Note: NAD on Trach collar. Increased tremor noted. Mildly confused. Intake & Output 09/18/18 09/19/18 09/20/18 09/21/18 23:59 23:59 23:59 23:59 Intake Total 100 200 500 250 Balance 100 200 500 250 Weight 161 lb 4 oz Last Vital Signs Temp Pulse Resp BP Pulse Ox 98.8 F 111 H 20 121/84 97 09/21/18 06:00 09/21/18 06:00 09/21/18 02:00 09/21/18 06:00 09/20/18 21:00 Active Medications Acetaminophen (Tylenol -) 650 mg PO Q6H PRN PRN Reason: PAIN LEVEL 1-5 OR FEVER Last Admin: 09/21/18 09:31 Dose: 650 mg Albuterol Sulfate (Ventolin 0.083% Nebulizer Soln -) 1 amp NEB Q4H PRN PRN Reason: SHORT OF BREATH/WHEEZING Albuterol/Ipratropium (Duoneb -) 1 amp NEB RQID [facility] Last Admin: 09/21/18 08:00 Dose: 1 amp Alprazolam (Xanax -) 0.25 mg PO Q8H PRN PRN Reason: ANXIETY Last Admin: 09/21/18 09:24 Dose: 0.25 mg Apixaban (Eliquis -) 5 mg PO BID [facility] Last Admin: 09/21/18 09:25 Dose: 5 mg Baclofen (Lioresal -) 20 mg PO TID [facility] Last Admin: 09/21/18 05:43 Dose: 20 mg Diltiazem HCl (Cardizem Cd -) 240 mg PO BID [facility] Last Admin: 09/21/18 09:24 Dose: 240 mg Doxepin HCl (Sinequan -) 25 mg PO DAILY [facility] Last Admin: 09/21/18 09:25 Dose: 25 mg Gabapentin 300 mg/ Gabapentin (200 mg) 500 mg PO TID [facility] Last Admin: 09/21/18 05:43 Dose: 500 mg Hydromorphone HCl (Dilaudid -) 4 mg PO Q8H PRN PRN Reason: PAIN LEVEL 6-10 Last Admin: 09/20/18 22:50 Dose: 4 mg Vancomycin HCl (Vancomycin (Pre-Docked)) 1,000 mg in 250 mls @ 166.667 mls/hr IVPB BID@0100,1300 [facility]; Protocol Last Admin: 09/21/18 01:10 Dose: 166.667 mls/hr Ceftriaxone Sodium 2 gm/ (Dextrose) 100 mls @ 200 mls/hr IVPB DAILY [facility]; Protocol Last Admin: 09/21/18 09:31 Dose: 200 mls/hr Insulin Aspart (Novolog Vial Sliding Scale -) 1 vial SQ ACHS [facility]; Protocol Last Admin: 09/21/18 11:47 Dose: Not Given Insulin Detemir (Levemir Vial) 35 units SQ BID@0700,2200 [facility] Last Admin: 09/21/18 06:40 Dose: 35 units Levothyroxine Sodium (Synthroid -) 50 mcg PO DAILY@0700 [facility] Last Admin: 09/21/18 06:03 Dose: 50 mcg Loratadine (Claritin -) 10 mg PO HS [facility] Last Admin: 09/20/18 22:29 Dose: 10 mg Methylnaltrexone [place] (Relistor -) 12 mg SQ DAILY [facility] Last Admin: 09/21/18 11:48 Dose: Not Given Montelukast Sodium (Singulair -) 10 mg PO [facility] Last Admin: 09/20/18 22:49 Dose: 10 mg Non-Formulary Medication (Mirabegron [Myrbetriq]) 50 mg PO DAILY [facility] Non-Formulary Medication (Vortioxetine Hydrobromide [Trintellix]) 20 mg PO DAILY [facility] Olanzapine (Zyprexa -) 5 mg PO BID [facility] Last Admin: 09/21/18 09:25 Dose: 5 mg Ondansetron HCl (Zofran Injection) 4 mg IVPUSH Q6H PRN PRN Reason: NAUSEA AND/OR VOMITING Last Admin: 09/18/18 22:02 Dose: 4 mg Ranitidine HCl (Zantac -) 300 mg PO DAILY [facility] Last Admin: 09/21/18 09:24 Dose: 300 mg Rosuvastatin Calcium (Crestor -) 10 mg PO HS [facility] Last Admin: 09/20/18 22:28 Dose: 10 mg Topiramate (Topamax -) 100 mg PO DAILY [facility] Last Admin: 09/21/18 09:25 Dose: 100 mg Venlafaxine HCl (Effexor Xr -) 75 mg PO DAILY@0800 [facility] Last Admin: 09/21/18 09:25 Dose: 75 mg Zolpidem Tartrate (Ambien -) 10 mg PO HS PRN PRN Reason: INSOMNIA Last Admin: 09/19/18 22:20 Dose: 10 mg Constitutional: Yes: NAD, mildly confused Eyes: Yes: Conjunctiva Clear, EOM Intact HENT: Yes: Atraumatic, Normocephalic Neck: Yes: Supple, Trachea Midline Cardiovascular: Yes: Regular Rate and Rhythm Respiratory: Yes: Diminished (distant breath sounds) Gastrointestinal: Yes: Normal Bowel Sounds, Soft, Abdomen, Obese. No: Tenderness Edema: No Neurological: Yes: Oriented Labs: Laboratory Results - last 24 hr 09/20/18 09/20/18 09/21/18 15:20 16:49 06:15 WBC RBC Hgb Hct MCV MCH MCHC RDW Plt Count MPV Absolute Neuts (auto) Neutrophils % Lymphocytes % Monocytes % Eosinophils % Basophils % Nucleated RBC % Anticoagulation Therapy No Result Required. Puncture Site Right radial ABG pH 7.37 ABG pCO2 at Pt Temp 48.8 H ABG pO2 at Pt Temp 89.3 D ABG HCO3 27.2 H ABG O2 Sat (Measured) 96.0 ABG O2 Content 10.3 L ABG Base Excess 2.1 H Francis Test Positive O2 Delivery Device Trach collar Oxygen Flow Rate 40% Vent Mode No Result Required. Vent Rate No Result Required. Mechanical Rate No Result Required. Pressure Support Vent No Result Required. Sodium 144 Potassium 3.5 Chloride 105 Carbon Dioxide 30 Anion Gap 8 BUN 9 Creatinine 1.0 Creat Clearance w eGFR 58.69 POC Glucometer 182 Random Glucose 187 H Calcium 8.4 L Total Bilirubin 0.3 AST 22 ALT 21 Alkaline Phosphatase 178 H Total Protein 5.8 L Albumin 2.4 L 09/21/18 09/21/18 09/21/18 06:37 09:15 11:32 WBC 7.6 RBC 3.56 L Hgb 7.7 L Hct 26.6 L MCV 74.7 L MCH 21.6 L MCHC 28.9 L RDW 21.0 H Plt Count 313 MPV 8.8 Absolute Neuts (auto) 4.7 Neutrophils % 61.9 Lymphocytes % 18.5 Monocytes % 12.5 H Eosinophils % 5.9 H Basophils % 1.2 Nucleated RBC % 0 Anticoagulation Therapy Puncture Site ABG pH ABG pCO2 at Pt Temp ABG pO2 at Pt Temp ABG HCO3 ABG O2 Sat (Measured) ABG O2 Content ABG Base Excess Francis Test O2 Delivery Device Oxygen Flow Rate Vent Mode Vent Rate Mechanical Rate Pressure Support Vent Sodium Potassium Chloride Carbon Dioxide Anion Gap BUN Creatinine Creat Clearance w eGFR POC Glucometer 209 190 Random Glucose Calcium Total Bilirubin AST ALT Alkaline Phosphatase Total Protein Albumin Problem List - Problems (1) UTI (urinary tract infection) Code(s): N39.0 - URINARY TRACT INFECTION, SITE NOT SPECIFIED (2) Pneumonia Code(s): J18.9 - PNEUMONIA, UNSPECIFIED ORGANISM Qualifiers: Pneumonia type: due to unspecified organism Laterality: unspecified laterality Lung location: unspecified part of lung Qualified Code(s): J18.9 - Pneumonia, unspecified organism Assessment/Plan UTI Do not suspect Pneumonia but rather atelectasis Chronic Hypoxic and Hypercapneic Respiratory Failure Asthma/COPD HTN Paroxysmal Atrial Fibrillation DM Hypothyroidism Chronic Pain - continue antibiotics per ID - inhaled bronchodilators standing and PRN - O2 to keep Spo2 >90% - rate controlled - continue anticoagulation Dr Castaneda
--- NOTE | 2018-09-21 14:02 | PN ---
Progress Note, Physician Chief Complaint: AWAKE, HAVING CONVERSATIONS C/O WEAKNESS - Current Medication List Current Medications: Active Medications Acetaminophen (Tylenol -) 650 mg PO Q6H PRN PRN Reason: PAIN LEVEL 1-5 OR FEVER Last Admin: 09/21/18 09:31 Dose: 650 mg Albuterol Sulfate (Ventolin 0.083% Nebulizer Soln -) 1 amp NEB Q4H PRN PRN Reason: SHORT OF BREATH/WHEEZING Albuterol/Ipratropium (Duoneb -) 1 amp NEB RQID [facility] Last Admin: 09/21/18 12:05 Dose: 1 amp Alprazolam (Xanax -) 0.25 mg PO Q8H PRN PRN Reason: ANXIETY Last Admin: 09/21/18 09:24 Dose: 0.25 mg Apixaban (Eliquis -) 5 mg PO BID [facility] Last Admin: 09/21/18 09:25 Dose: 5 mg Baclofen (Lioresal -) 20 mg PO TID [facility] Last Admin: 09/21/18 05:43 Dose: 20 mg Diltiazem HCl (Cardizem Cd -) 240 mg PO BID [facility] Last Admin: 09/21/18 09:24 Dose: 240 mg Doxepin HCl (Sinequan -) 25 mg PO DAILY [facility] Last Admin: 09/21/18 09:25 Dose: 25 mg Gabapentin 300 mg/ Gabapentin (200 mg) 500 mg PO TID [facility] Last Admin: 09/21/18 05:43 Dose: 500 mg Hydromorphone HCl (Dilaudid -) 4 mg PO Q8H PRN PRN Reason: PAIN LEVEL 6-10 Last Admin: 09/20/18 22:50 Dose: 4 mg Vancomycin HCl (Vancomycin (Pre-Docked)) 1,000 mg in 250 mls @ 166.667 mls/hr IVPB BID@0100,1300 [facility]; Protocol Last Admin: 09/21/18 01:10 Dose: 166.667 mls/hr Ceftriaxone Sodium 2 gm/ (Dextrose) 100 mls @ 200 mls/hr IVPB DAILY [facility]; Protocol Last Admin: 09/21/18 09:31 Dose: 200 mls/hr Insulin Aspart (Novolog Vial Sliding Scale -) 1 vial SQ ACHS [facility]; Protocol Last Admin: 09/21/18 11:47 Dose: Not Given Insulin Detemir (Levemir Vial) 35 units SQ BID@0700,2200 [facility] Last Admin: 09/21/18 06:40 Dose: 35 units Levothyroxine Sodium (Synthroid -) 50 mcg PO DAILY@0700 [facility] Last Admin: 09/21/18 06:03 Dose: 50 mcg Loratadine (Claritin -) 10 mg PO HS [facility] Last Admin: 09/20/18 22:29 Dose: 10 mg Methylnaltrexone [place] (Relistor -) 12 mg SQ DAILY [facility] Last Admin: 09/21/18 11:48 Dose: Not Given Montelukast Sodium (Singulair -) 10 mg PO HS [facility] Last Admin: 09/20/18 22:49 Dose: 10 mg Non-Formulary Medication (Mirabegron [Myrbetriq]) 50 mg PO DAILY [facility] Non-Formulary Medication (Vortioxetine Hydrobromide [Trintellix]) 20 mg PO DAILY [facility] Olanzapine (Zyprexa -) 5 mg PO BID [facility] Last Admin: 09/21/18 09:25 Dose: 5 mg Ondansetron HCl (Zofran Injection) 4 mg IVPUSH Q6H PRN PRN Reason: NAUSEA AND/OR VOMITING Last Admin: 09/18/18 22:02 Dose: 4 mg Ranitidine HCl (Zantac -) 300 mg PO DAILY [facility] Last Admin: 09/21/18 09:24 Dose: 300 mg Rosuvastatin Calcium (Crestor -) 10 mg PO HS [facility] Last Admin: 09/20/18 22:28 Dose: 10 mg Topiramate (Topamax -) 100 mg PO DAILY [facility] Last Admin: 09/21/18 09:25 Dose: 100 mg Venlafaxine HCl (Effexor Xr -) 75 mg PO DAILY@0800 [facility] Last Admin: 09/21/18 09:25 Dose: 75 mg Zolpidem Tartrate (Ambien -) 10 mg PO HS PRN PRN Reason: INSOMNIA Last Admin: 09/19/18 22:20 Dose: 10 mg - Objective Vital Signs: Vital Signs Temperature 98.8 F 09/21/18 06:00 Pulse Rate 111 H 09/21/18 06:00 Respiratory Rate 20 09/21/18 02:00 Blood Pressure 121/84 09/21/18 06:00 O2 Sat by Pulse Oximetry (%) 97 09/20/18 21:00 Constitutional: Yes: Mild Distress Eyes: Yes: WNL HENT: Yes: WNL Neck: Yes: Other (TRACHEOSTMY) Cardiovascular: Yes: Regular Rate and Rhythm Respiratory: Yes: Other (TRACHEOSTOMY ON 02 SUPPORT) Gastrointestinal: Yes: Soft, Abdomen, Obese Genitourinary: Yes: Incontinence Musculoskeletal: Yes: Muscle Weakness Extremities: Yes: Other Edema: No Peripheral Pulses WNL: Yes Integumentary: Yes: Other Wound/Incision: Yes: Dressing Dry and Intact Neurological: Yes: Pre-Existing Deficit ...Motor Strength: LLE, RLE Psychiatric: Yes: Agitated Labs: CBC, BMP 09/21/18 09:15 09/21/18 06:15 Problem List - Problems (1) Elevated lactic acid level Code(s): R79.89 - OTHER SPECIFIED ABNORMAL FINDINGS OF BLOOD CHEMISTRY (2) Sepsis Code(s): A41.9 - SEPSIS, UNSPECIFIED ORGANISM (3) UTI (urinary tract infection) Code(s): N39.0 - URINARY TRACT INFECTION, SITE NOT SPECIFIED (4) Abdominal pain Code(s): R10.9 - UNSPECIFIED ABDOMINAL PAIN (5) Acute and chronic respiratory failure with hypoxia Code(s): J96.21 - ACUTE AND CHRONIC RESPIRATORY FAILURE WITH HYPOXIA (6) Anemia Code(s): D64.9 - ANEMIA, UNSPECIFIED (7) Chronic respiratory failure Code(s): J96.10 - CHRONIC RESPIRATORY FAILURE, UNSP W HYPOXIA OR HYPERCAPNIA (8) Diabetes Code(s): E11.9 - TYPE 2 DIABETES MELLITUS WITHOUT COMPLICATIONS (9) Hypothyroid Code(s): E03.9 - HYPOTHYROIDISM, UNSPECIFIED Qualifiers: Hypothyroidism type: unspecified Qualified Code(s): E03.9 - Hypothyroidism , unspecified (10) Anxiety Code(s): F41.9 - ANXIETY DISORDER, UNSPECIFIED (11) Bipolar 2 disorder Code(s): F31.81 - BIPOLAR II DISORDER (12) COPD (chronic obstructive pulmonary disease) Code(s): J44.9 - CHRONIC OBSTRUCTIVE PULMONARY DISEASE, UNSPECIFIED Qualifiers: COPD type: unspecified COPD Qualified Code(s): J44.9 - Chronic obstructive pulmonary disease, unspecified (13) Depression with anxiety Code(s): F41.8 - OTHER SPECIFIED ANXIETY DISORDERS (14) Diabetes mellitus, insulin dependent (IDDM), uncontrolled Code(s): E10.65 - TYPE 1 DIABETES MELLITUS WITH HYPERGLYCEMIA (15) Neuropathy Code(s): G62.9 - POLYNEUROPATHY, UNSPECIFIED (16) Paroxysmal atrial fibrillation Code(s): I48.0 - PAROXYSMAL ATRIAL FIBRILLATION Assessment/Plan CT HEAD NO ACUTE CHANGES ABG STABLE ON IV ABX PSYCHIATRY/NEUO EVAL NO ACUTE CNC CHANGES DVT PROPHYLAXIS CHECK LABS O2 SUPPORT
--- NOTE | 2018-09-21 14:31 | PN ---
Progress Note, Physician - Current Medication List Current Medications: Active Medications Acetaminophen (Tylenol -) 650 mg PO Q6H PRN PRN Reason: PAIN LEVEL 1-5 OR FEVER Last Admin: 09/21/18 09:31 Dose: 650 mg Albuterol Sulfate (Ventolin 0.083% Nebulizer Soln -) 1 amp NEB Q4H PRN PRN Reason: SHORT OF BREATH/WHEEZING Albuterol/Ipratropium (Duoneb -) 1 amp NEB RQID [facility] Last Admin: 09/21/18 12:05 Dose: 1 amp Alprazolam (Xanax -) 0.25 mg PO Q8H PRN PRN Reason: ANXIETY Last Admin: 09/21/18 09:24 Dose: 0.25 mg Apixaban (Eliquis -) 5 mg PO BID [facility] Last Admin: 09/21/18 09:25 Dose: 5 mg Baclofen (Lioresal -) 20 mg PO TID [facility] Last Admin: 09/21/18 05:43 Dose: 20 mg Diltiazem HCl (Cardizem Cd -) 240 mg PO BID [facility] Last Admin: 09/21/18 09:24 Dose: 240 mg Doxepin HCl (Sinequan -) 25 mg PO DAILY [facility] Last Admin: 09/21/18 09:25 Dose: 25 mg Gabapentin 300 mg/ Gabapentin (200 mg) 500 mg PO TID [facility] Last Admin: 09/21/18 05:43 Dose: 500 mg Hydromorphone HCl (Dilaudid -) 4 mg PO Q8H PRN PRN Reason: PAIN LEVEL 6-10 Last Admin: 09/20/18 22:50 Dose: 4 mg Vancomycin HCl (Vancomycin (Pre-Docked)) 1,000 mg in 250 mls @ 166.667 mls/hr IVPB BID@0100,1300 [facility]; Protocol Last Admin: 09/21/18 01:10 Dose: 166.667 mls/hr Ceftriaxone Sodium 2 gm/ (Dextrose) 100 mls @ 200 mls/hr IVPB DAILY [facility]; Protocol Last Admin: 09/21/18 09:31 Dose: 200 mls/hr Insulin Aspart (Novolog Vial Sliding Scale -) 1 vial SQ ACHS [facility]; Protocol Last Admin: 09/21/18 11:47 Dose: Not Given Insulin Detemir (Levemir Vial) 35 units SQ BID@0700,2200 [facility] Last Admin: 09/21/18 06:40 Dose: 35 units Levothyroxine Sodium (Synthroid -) 50 mcg PO DAILY@0700 [facility] Last Admin: 09/21/18 06:03 Dose: 50 mcg Loratadine (Claritin -) 10 mg PO HS [facility] Last Admin: 09/20/18 22:29 Dose: 10 mg Methylnaltrexone [place] (Relistor -) 12 mg SQ DAILY [facility] Last Admin: 09/21/18 11:48 Dose: Not Given Montelukast Sodium (Singulair -) 10 mg PO HS [facility] Last Admin: 09/20/18 22:49 Dose: 10 mg Non-Formulary Medication (Mirabegron [Myrbetriq]) 50 mg PO DAILY [facility] Non-Formulary Medication (Vortioxetine Hydrobromide [Trintellix]) 20 mg PO DAILY [facility] Olanzapine (Zyprexa -) 5 mg PO BID [facility] Last Admin: 09/21/18 09:25 Dose: 5 mg Ondansetron HCl (Zofran Injection) 4 mg IVPUSH Q6H PRN PRN Reason: NAUSEA AND/OR VOMITING Last Admin: 09/18/18 22:02 Dose: 4 mg Ranitidine HCl (Zantac -) 300 mg PO DAILY [facility] Last Admin: 09/21/18 09:24 Dose: 300 mg Rosuvastatin Calcium (Crestor -) 10 mg PO HS [facility] Last Admin: 09/20/18 22:28 Dose: 10 mg Topiramate (Topamax -) 100 mg PO DAILY [facility] Last Admin: 09/21/18 09:25 Dose: 100 mg Venlafaxine HCl (Effexor Xr -) 75 mg PO DAILY@0800 [facility] Last Admin: 09/21/18 09:25 Dose: 75 mg Zolpidem Tartrate (Ambien -) 10 mg PO HS PRN PRN Reason: INSOMNIA Last Admin: 09/19/18 22:20 Dose: 10 mg - Objective Vital Signs: Vital Signs Temperature 98.8 F 09/21/18 06:00 Pulse Rate 111 H 09/21/18 06:00 Respiratory Rate 20 09/21/18 02:00 Blood Pressure 121/84 09/21/18 06:00 O2 Sat by Pulse Oximetry (%) 97 10/29/18 21:00 Labs: CBC, BMP 10/30/18 09:15 09/21/18 06:15 Problem List - Problems (1) Elevated lactic acid level Code(s): R79.89 - OTHER SPECIFIED ABNORMAL FINDINGS OF BLOOD CHEMISTRY (2) Sepsis Code(s): A41.9 - SEPSIS, UNSPECIFIED ORGANISM (3) UTI (urinary tract infection) Code(s): N39.0 - URINARY TRACT INFECTION, SITE NOT SPECIFIED (4) Abdominal pain Code(s): R10.9 - UNSPECIFIED ABDOMINAL PAIN (5) Acute and chronic respiratory failure with hypoxia Code(s): J96.21 - ACUTE AND CHRONIC RESPIRATORY FAILURE WITH HYPOXIA (6) Anemia Code(s): D64.9 - ANEMIA, UNSPECIFIED (7) Chronic respiratory failure Code(s): J96.10 - CHRONIC RESPIRATORY FAILURE, UNSP W HYPOXIA OR HYPERCAPNIA (8) Diabetes Code(s): E11.9 - TYPE 2 DIABETES MELLITUS WITHOUT COMPLICATIONS (9) Hypothyroid Code(s): E03.9 - HYPOTHYROIDISM, UNSPECIFIED Qualifiers: Hypothyroidism type: unspecified Qualified Code(s): E03.9 - Hypothyroidism , unspecified (10) Anxiety Code(s): F41.9 - ANXIETY DISORDER, UNSPECIFIED (11) Bipolar 2 disorder Code(s): F31.81 - BIPOLAR II DISORDER (12) COPD (chronic obstructive pulmonary disease) Code(s): J44.9 - CHRONIC OBSTRUCTIVE PULMONARY DISEASE, UNSPECIFIED Qualifiers: COPD type: unspecified COPD Qualified Code(s): J44.9 - Chronic obstructive pulmonary disease, unspecified (13) Depression with anxiety Code(s): F41.8 - OTHER SPECIFIED ANXIETY DISORDERS (14) Diabetes mellitus, insulin dependent (IDDM), uncontrolled Code(s): E10.65 - TYPE 1 DIABETES MELLITUS WITH HYPERGLYCEMIA (15) Neuropathy Code(s): G62.9 - POLYNEUROPATHY, UNSPECIFIED (16) Paroxysmal atrial fibrillation Code(s): I48.0 - PAROXYSMAL ATRIAL FIBRILLATION
--- NOTE | 2018-09-21 14:32 | PN ---
Progress Note, Physician - Current Medication List Current Medications: Active Medications Acetaminophen (Tylenol -) 650 mg PO Q6H PRN PRN Reason: PAIN LEVEL 1-5 OR FEVER Last Admin: 09/21/18 09:31 Dose: 650 mg Albuterol Sulfate (Ventolin 0.083% Nebulizer Soln -) 1 amp NEB Q4H PRN PRN Reason: SHORT OF BREATH/WHEEZING Albuterol/Ipratropium (Duoneb -) 1 amp NEB RQID [facility] Last Admin: 09/21/18 12:05 Dose: 1 amp Alprazolam (Xanax -) 0.25 mg PO Q8H PRN PRN Reason: ANXIETY Last Admin: 09/21/18 09:24 Dose: 0.25 mg Apixaban (Eliquis -) 5 mg PO BID [facility] Last Admin: 09/21/18 09:25 Dose: 5 mg Baclofen (Lioresal -) 20 mg PO TID [facility] Last Admin: 09/21/18 05:43 Dose: 20 mg Diltiazem HCl (Cardizem Cd -) 240 mg PO BID [facility] Last Admin: 09/21/18 09:24 Dose: 240 mg Doxepin HCl (Sinequan -) 25 mg PO DAILY [facility] Last Admin: 09/21/18 09:25 Dose: 25 mg Gabapentin 300 mg/ Gabapentin (200 mg) 500 mg PO TID [facility] Last Admin: 09/21/18 05:43 Dose: 500 mg Hydromorphone HCl (Dilaudid -) 4 mg PO Q8H PRN PRN Reason: PAIN LEVEL 6-10 Last Admin: 09/20/18 22:50 Dose: 4 mg Vancomycin HCl (Vancomycin (Pre-Docked)) 1,000 mg in 250 mls @ 166.667 mls/hr IVPB BID@0100,1300 [facility]; Protocol Last Admin: 09/21/18 01:10 Dose: 166.667 mls/hr Ceftriaxone Sodium 2 gm/ (Dextrose) 100 mls @ 200 mls/hr IVPB DAILY [facility]; Protocol Last Admin: 09/21/18 09:31 Dose: 200 mls/hr Insulin Aspart (Novolog Vial Sliding Scale -) 1 vial SQ ACHS [facility]; Protocol Last Admin: 09/21/18 11:47 Dose: Not Given Insulin Detemir (Levemir Vial) 35 units SQ BID@0700,2200 [facility] Last Admin: 09/21/18 06:40 Dose: 35 units Levothyroxine Sodium (Synthroid -) 50 mcg PO DAILY@0700 [facility] Last Admin: 09/21/18 06:03 Dose: 50 mcg Loratadine (Claritin -) 10 mg PO HS [facility] Last Admin: 09/20/18 22:29 Dose: 10 mg Methylnaltrexone [place] (Relistor -) 12 mg SQ DAILY [facility] Last Admin: 09/21/18 11:48 Dose: Not Given Montelukast Sodium (Singulair -) 10 mg PO HS [facility] Last Admin: 09/20/18 22:49 Dose: 10 mg Non-Formulary Medication (Mirabegron [Myrbetriq]) 50 mg PO DAILY [facility] Non-Formulary Medication (Vortioxetine Hydrobromide [Trintellix]) 20 mg PO DAILY [facility] Olanzapine (Zyprexa -) 5 mg PO BID [facility] Last Admin: 09/21/18 09:25 Dose: 5 mg Ondansetron HCl (Zofran Injection) 4 mg IVPUSH Q6H PRN PRN Reason: NAUSEA AND/OR VOMITING Last Admin: 09/18/18 22:02 Dose: 4 mg Ranitidine HCl (Zantac -) 300 mg PO DAILY [facility] Last Admin: 09/21/18 09:24 Dose: 300 mg Rosuvastatin [place]cium (Crestor -) 10 mg PO HS [facility] Last Admin: 09/20/18 22:28 Dose: 10 mg Topiramate (Topamax -) 100 mg PO DAILY [facility] Last Admin: 09/21/18 09:25 Dose: 100 mg Venlafaxine HCl (Effexor Xr -) 75 mg PO DAILY@0800 [facility] Last Admin: 09/21/18 09:25 Dose: 75 mg Zolpidem Tartrate (Ambien -) 10 mg PO HS PRN PRN Reason: INSOMNIA Last Admin: 09/19/18 22:20 Dose: 10 mg - Objective Vital Signs: Vital Signs Temperature 98.8 F 09/21/18 06:00 Pulse Rate 111 H 09/21/18 06:00 Respiratory Rate 20 09/21/18 02:00 Blood Pressure 121/84 09/21/18 06:00 O2 Sat by Pulse Oximetry (%) 97 10/29/18 21:00 Labs: CBC, BMP 10/30/18 09:15 09/21/18 06:15 Problem List - Problems (1) Elevated lactic acid level Code(s): R79.89 - OTHER SPECIFIED ABNORMAL FINDINGS OF BLOOD CHEMISTRY (2) Sepsis Code(s): A41.9 - SEPSIS, UNSPECIFIED ORGANISM (3) UTI (urinary tract infection) Code(s): N39.0 - URINARY TRACT INFECTION, SITE NOT SPECIFIED (4) Abdominal pain Code(s): R10.9 - UNSPECIFIED ABDOMINAL PAIN (5) Acute and chronic respiratory failure with hypoxia Code(s): J96.21 - ACUTE AND CHRONIC RESPIRATORY FAILURE WITH HYPOXIA (6) Anemia Code(s): D64.9 - ANEMIA, UNSPECIFIED (7) Chronic respiratory failure Code(s): J96.10 - CHRONIC RESPIRATORY FAILURE, UNSP W HYPOXIA OR HYPERCAPNIA (8) Diabetes Code(s): E11.9 - TYPE 2 DIABETES MELLITUS WITHOUT COMPLICATIONS (9) Hypothyroid Code(s): E03.9 - HYPOTHYROIDISM, UNSPECIFIED Qualifiers: Hypothyroidism type: unspecified Qualified Code(s): E03.9 - Hypothyroidism , unspecified (10) Anxiety Code(s): F41.9 - ANXIETY DISORDER, UNSPECIFIED (11) Bipolar 2 disorder Code(s): F31.81 - BIPOLAR II DISORDER (12) COPD (chronic obstructive pulmonary disease) Code(s): J44.9 - CHRONIC OBSTRUCTIVE PULMONARY DISEASE, UNSPECIFIED Qualifiers: COPD type: unspecified COPD Qualified Code(s): J44.9 - Chronic obstructive pulmonary disease, unspecified (13) Depression with anxiety Code(s): F41.8 - OTHER SPECIFIED ANXIETY DISORDERS (14) Diabetes mellitus, insulin dependent (IDDM), uncontrolled Code(s): E10.65 - TYPE 1 DIABETES MELLITUS WITH HYPERGLYCEMIA (15) Neuropathy Code(s): G62.9 - POLYNEUROPATHY, UNSPECIFIED (16) Paroxysmal atrial fibrillation Code(s): I48.0 - PAROXYSMAL ATRIAL FIBRILLATION
[2018-09-21] MEDS: MONTELUKAST NA 10 MG TABLET PO SCH (22:37)
[2018-09-21] MEDS: LORATADINE 10 MG TABLET PO SCH (22:37)
[2018-09-21] MEDS: ROSUVASTATIN CA 10 MG TABLET (FP) PO SCH (22:44)
[2018-09-22] MEDS: VANCOMYCIN 1 GRAM (PRE-DOCKED) 1,000 MG/250 ML BAG IVPB SCH ×2 (01:10→13:42)
[2018-09-22] MEDS: ALPRAZolam 0.25 MG TABLET PO PRN (01:11)
[2018-09-22] MEDS ORDERED: GABAPENTIN 100 MG CAPSULE (FP) ONE ×3 (05:47→21:24)
[2018-09-22] MEDS ORDERED: GABAPENTIN 300 MG CAPSULE (FP) ONE ×3 (05:47→21:24)
[2018-09-22] MEDS: GABAPENTIN 300 MG, GABAPENTIN 200 MG PO SCH ×3 (06:01→21:46)
[2018-09-22] MEDS: BACLOFEN 10 MG TABLET (FP) PO SCH ×3 (06:02→21:47)
[2018-09-22 06:54] LABS: ALBUMIN 2.3 g/dl (3.4-5.0); ALK PHOS 188 U/L (45-117); ANION GAP 7 MMOL/L (8-16); BILIRUBIN,TOTAL 0.2 mg/dL (0.2-1); BLOOD UREA NITROGEN 6 mg/dL (7-18); CALCIUM 8.7 mg/dL (8.5-10.1); CHLORIDE 107 mmol/L (98-107); CO2 31 mmol/L (21-32); CREATININE 0.9 mg/dL (0.55-1.3); GLUCOSE,RANDOM 191 mg/dL (74-106); POTASSIUM 3.9 mmol/L (3.5-5.1); SGOT/AST 23 U/L (15-37); SGPT/ALT 21 U/L (13-61); SODIUM 145 mmol/L (136-145)
[2018-09-22] MEDS: LEVOTHYROXINE NA 50 MCG TABLET (FP) PO SCH (06:55)
[2018-09-22] MEDS: INSULIN SLIDING SCALE (NOVOLOG) 1 VIAL SQ SCH ×4 (06:59→21:49)
[2018-09-22] MEDS: INSULIN (LEVEMIR) 100 UNITS/ML UNITS SQ SCH ×2 (06:59→21:49)
[2018-09-22] MEDS: ALBUTEROL SO4 2.5/IPRATROPIUM 0.5 INH SOL 3 ML VIAL.NEB. NEB SCH ×4 (08:00→21:55)
--- NOTE | 2018-09-22 08:02 | PN ---
Progress Note, Physician Chief Complaint: ASLEEP COMFORTABLE EVENTS AND NOTES REVIEWED - Current Medication List Current Medications: Active Medications Acetaminophen (Tylenol -) 650 mg PO Q6H PRN PRN Reason: PAIN LEVEL 1-5 OR FEVER Last Admin: 09/21/18 09:31 Dose: 650 mg Albuterol Sulfate (Ventolin 0.083% Nebulizer Soln -) 1 amp NEB Q4H PRN PRN Reason: SHORT OF BREATH/WHEEZING Albuterol/Ipratropium (Duoneb -) 1 amp NEB RQID [facility] Last Admin: 09/21/18 20:15 Dose: 1 amp Alprazolam (Xanax -) 0.25 mg PO Q8H PRN PRN Reason: ANXIETY Last Admin: 09/22/18 01:11 Dose: 0.25 mg Apixaban (Eliquis -) 5 mg PO BID [facility] Last Admin: 09/21/18 22:37 Dose: 5 mg Baclofen (Lioresal -) 20 mg PO TID [facility] Last Admin: 09/22/18 06:02 Dose: 20 mg Diltiazem HCl (Cardizem Cd -) 240 mg PO BID [facility] Last Admin: 09/21/18 22:37 Dose: 240 mg Doxepin HCl (Sinequan -) 25 mg PO DAILY [facility] Last Admin: 09/21/18 09:25 Dose: 25 mg Gabapentin 300 mg/ Gabapentin (200 mg) 500 mg PO TID [facility] Last Admin: 09/22/18 06:01 Dose: 500 mg Hydromorphone HCl (Dilaudid -) 4 mg PO Q8H PRN PRN Reason: PAIN LEVEL 6-10 Last Admin: 09/20/18 22:50 Dose: 4 mg Vancomycin HCl (Vancomycin (Pre-Docked)) 1,000 mg in 250 mls @ 166.667 mls/hr IVPB BID@0100,1300 [facility]; Protocol Last Admin: 09/22/18 01:10 Dose: 166.667 mls/hr Ceftriaxone Sodium 2 gm/ (Dextrose) 100 mls @ 200 mls/hr IVPB DAILY [facility]; Protocol Last Admin: 09/21/18 09:31 Dose: 200 mls/hr Insulin Aspart (Novolog Vial Sliding Scale -) 1 vial SQ ACHS [facility]; Protocol Last Admin: 09/22/18 06:59 Dose: Not Given Insulin Detemir (Levemir Vial) 35 units SQ BID@0700,2200 [facility] Last Admin: 09/22/18 06:59 Dose: 35 units Levothyroxine Sodium (Synthroid -) 50 mcg PO DAILY@0700 [facility] Last Admin: 09/22/18 06:55 Dose: 50 mcg Loratadine (Claritin -) 10 mg PO HS [facility] Last Admin: 09/21/18 22:37 Dose: 10 mg Methylnaltrexone [place] (Relistor -) 12 mg SQ DAILY [facility] Last Admin: 09/21/18 11:48 Dose: Not Given Montelukast Sodium (Singulair -) 10 mg PO HS [facility] Last Admin: 09/21/18 22:37 Dose: 10 mg Non-Formulary Medication (Mirabegron [Myrbetriq]) 50 mg PO DAILY [facility] Non-Formulary Medication (Vortioxetine Hydrobromide [Trintellix]) 20 mg PO DAILY [facility] Olanzapine (Zyprexa -) 5 mg PO BID [facility] Last Admin: 09/21/18 23:01 Dose: 5 mg Ondansetron HCl (Zofran Injection) 4 mg IVPUSH Q6H PRN PRN Reason: NAUSEA AND/OR VOMITING Last Admin: 09/18/18 22:02 Dose: 4 mg Ranitidine HCl (Zantac -) 300 mg PO DAILY [facility] Last Admin: 09/21/18 09:24 Dose: 300 mg Rosuvastatin Calcium (Crestor -) 10 mg PO HS [facility] Last Admin: 09/21/18 22:44 Dose: 10 mg Topiramate (Topamax -) 100 mg PO DAILY [facility] Last Admin: 09/21/18 09:25 Dose: 100 mg Venlafaxine HCl (Effexor Xr -) 75 mg PO DAILY@0800 [facility] Last Admin: 09/21/18 09:25 Dose: 75 mg Zolpidem Tartrate (Ambien -) 10 mg PO HS PRN PRN Reason: INSOMNIA Last Admin: 09/19/18 22:20 Dose: 10 mg - Objective Vital Signs: Vital Signs Temperature 99.6 F 09/22/18 06:00 Pulse Rate 120 H 09/22/18 06:00 Respiratory Rate 20 09/22/18 06:00 Blood Pressure 125/75 09/22/18 06:00 O2 Sat by Pulse Oximetry (%) 98 09/21/18 17:50 Constitutional: Yes: No Distress Eyes: Yes: WNL HENT: Yes: Other (TRACHEOSTOMY) Cardiovascular: Yes: WNL Respiratory: Yes: Diminished, Wheezes, Other (02 SUPPORT TRACHCOLLAR) Gastrointestinal: Yes: Soft, Abdomen, Obese Genitourinary: Yes: Incontinence Musculoskeletal: Yes: Muscle Weakness Extremities: Yes: Other Edema: Yes Peripheral Pulses WNL: Yes Integumentary: Yes: Other Wound/Incision: Yes: Other Neurological: Yes: Pre-Existing Deficit ...Motor Strength: LLE, RLE Psychiatric: Yes: Agitated Labs: CBC, BMP 09/21/18 09:15 09/22/18 05:30 Problem List - Problems (1) Elevated lactic acid level Code(s): R79.89 - OTHER SPECIFIED ABNORMAL FINDINGS OF BLOOD CHEMISTRY (2) Sepsis Code(s): A41.9 - SEPSIS, UNSPECIFIED ORGANISM (3) UTI (urinary tract infection) Code(s): N39.0 - URINARY TRACT INFECTION, SITE NOT SPECIFIED (4) Abdominal pain Code(s): R10.9 - UNSPECIFIED ABDOMINAL PAIN (5) Acute and chronic respiratory failure with hypoxia Code(s): J96.21 - ACUTE AND CHRONIC RESPIRATORY FAILURE WITH HYPOXIA (6) Anemia Code(s): D64.9 - ANEMIA, UNSPECIFIED (7) Chronic respiratory failure Code(s): J96.10 - CHRONIC RESPIRATORY FAILURE, UNSP W HYPOXIA OR HYPERCAPNIA (8) Diabetes Code(s): E11.9 - TYPE 2 DIABETES MELLITUS WITHOUT COMPLICATIONS (9) Hypothyroid Code(s): E03.9 - HYPOTHYROIDISM, UNSPECIFIED Qualifiers: Hypothyroidism type: unspecified Qualified Code(s): E03.9 - Hypothyroidism , unspecified (10) Anxiety Code(s): F41.9 - ANXIETY DISORDER, UNSPECIFIED (11) Bipolar 2 disorder Code(s): F31.81 - BIPOLAR II DISORDER (12) COPD (chronic obstructive pulmonary disease) Code(s): J44.9 - CHRONIC OBSTRUCTIVE PULMONARY DISEASE, UNSPECIFIED Qualifiers: COPD type: unspecified COPD Qualified Code(s): J44.9 - Chronic obstructive pulmonary disease, unspecified (13) Depression with anxiety Code(s): F41.8 - OTHER SPECIFIED ANXIETY DISORDERS (14) Diabetes mellitus, insulin dependent (IDDM), uncontrolled Code(s): E10.65 - TYPE 1 DIABETES MELLITUS WITH HYPERGLYCEMIA (15) Neuropathy Code(s): G62.9 - POLYNEUROPATHY, UNSPECIFIED (16) Paroxysmal atrial fibrillation Code(s): I48.0 - PAROXYSMAL ATRIAL FIBRILLATION Assessment/Plan IV STEROIDS 02 SUPPORT ON IV ABX PSYCHIATRY/NEUO EVAL NO ACUTE CNC CHANGES DVT PROPHYLAXIS CHECK LABS O2 SUPPORT
[2018-09-22 08:25] LABS: BASO % 0.7 % (0-2.0); EOS % 6.1 % (0-4.5); HEMATOCRIT 30.1 % (32.4-45.2); LYMPH % 12.4 % (8-40); MCH 21.5 pg (25.7-33.7); MCHC 28.8 g/dl (32.0-36.0); MEAN CELL VOLUME 74.8 fl (80-96); MEAN PLT VOLUME 9.4 fl (7.5-11.1); MONO % 13.4 % (3.8-10.2); NEUT % 67.4 % (42.8-82.8); PLATELET COUNT 332 K/MM3 (134-434); RBC 4.02 M/mm3 (3.60-5.2); RDW 20.4 % (11.6-15.6); WHITE BLOOD COUNT 7.4 K/mm3 (4.0-10.0)
[2018-09-22 08:35] LABS: HEMOGLOBIN 8.7 GM/dL (10.7-15.3)
[2018-09-22] MEDS ORDERED: PT OWN MED DRAWER 7, Y5N ONE (08:36)
--- NOTE | 2018-09-22 09:16 | PN ---
Progress Note (short form) - Note Progress Note: Neurology History of Present Illness: 52 y/o woman who presented to the ED with complaints of N/V/D x 2 days now resolved, but reported having a decreased appetite and generalized malaise. Patient reported that she had stomach flu-like symptoms as well. Patient denies fever, dizziness, COX, CP, dysuria. I was consulted because of tremor that was reported and in speaking with nurse, the patient has underlying anxiety and restlessness. She can be irritable and aggitated, this AM was calm and cooperative for me again. Did complete CT head which did not show acute changes. Is being treated for UTI which can precipitate tremor. Also with underlying neuropathy. No tremor noted this AM as patient was asleep and awoken without ongoing tremor. Is ordered for Xanax. Active Medications Acetaminophen (Tylenol -) 650 mg PO Q6H PRN PRN Reason: PAIN LEVEL 1-5 OR FEVER Last Admin: 09/21/18 09:31 Dose: 650 mg Albuterol Sulfate (Ventolin 0.083% Nebulizer Soln -) 1 amp NEB Q4H PRN PRN Reason: SHORT OF BREATH/WHEEZING Albuterol/Ipratropium (Duoneb -) 1 amp NEB RQID [facility] Last Admin: 09/22/18 08:00 Dose: 1 amp Alprazolam (Xanax -) 0.25 mg PO Q8H PRN PRN Reason: ANXIETY Last Admin: 09/22/18 01:11 Dose: 0.25 mg Apixaban (Eliquis -) 5 mg PO BID [facility] Last Admin: 09/21/18 22:37 Dose: 5 mg Baclofen (Lioresal -) 20 mg PO TID [facility] Last Admin: 09/22/18 06:02 Dose: 20 mg Diltiazem HCl (Cardizem Cd -) 240 mg PO BID [facility] Last Admin: 09/21/18 22:37 Dose: 240 mg Doxepin HCl (Sinequan -) 25 mg PO DAILY [facility] Last Admin: 09/21/18 09:25 Dose: 25 mg Gabapentin 300 mg/ Gabapentin (200 mg) 500 mg PO TID [facility] Last Admin: 09/22/18 06:01 Dose: 500 mg Hydromorphone HCl (Dilaudid -) 4 mg PO Q8H PRN PRN Reason: PAIN LEVEL 6-10 Last Admin: 09/20/18 22:50 Dose: 4 mg Vancomycin HCl (Vancomycin (Pre-Docked)) 1,000 mg in 250 mls @ 166.667 mls/hr IVPB BID@0100,1300 [facility]; Protocol Last Admin: 09/22/18 01:10 Dose: 166.667 mls/hr Ceftriaxone Sodium 2 gm/ (Dextrose) 100 mls @ 200 mls/hr IVPB DAILY [facility]; Protocol Last Admin: 09/21/18 09:31 Dose: 200 mls/hr Insulin Aspart (Novolog Vial Sliding Scale -) 1 vial SQ ACHS [facility]; Protocol Last Admin: 09/22/18 06:59 Dose: Not Given Insulin Detemir (Levemir Vial) 35 units SQ BID@0700,2200 [facility] Last Admin: 09/22/18 06:59 Dose: 35 units Levothyroxine Sodium (Synthroid -) 50 mcg PO DAILY@0700 [facility] Last Admin: 09/22/18 06:55 Dose: 50 mcg Loratadine (Claritin -) 10 mg PO [facility] Last Admin: 09/21/18 22:37 Dose: 10 mg Methylnaltrexone [place] (Relistor -) 12 mg SQ DAILY [facility] Last Admin: 09/21/18 11:48 Dose: Not Given Montelukast Sodium (Singulair -) 10 mg PO [facility] Last Admin: 09/21/18 22:37 Dose: 10 mg Non-Formulary Medication (Mirabegron [Myrbetriq]) 50 mg PO DAILY [facility] Non-Formulary Medication (Vortioxetine Hydrobromide [Trintellix]) 20 mg PO DAILY [facility] Olanzapine (Zyprexa -) 5 mg PO BID [facility] Last Admin: 09/21/18 23:01 Dose: 5 mg Ondansetron HCl (Zofran Injection) 4 mg IVPUSH Q6H PRN PRN Reason: NAUSEA AND/OR VOMITING Last Admin: 09/18/18 22:02 Dose: 4 mg Ranitidine HCl (Zantac -) 300 mg PO DAILY [facility] Last Admin: 09/21/18 09:24 Dose: 300 mg Rosuvastatin Calcium (Crestor -) 10 mg PO [facility] Last Admin: 09/21/18 22:44 Dose: 10 mg Topiramate (Topamax -) 100 mg PO DAILY [facility] Last Admin: 09/21/18 09:25 Dose: 100 mg Venlafaxine HCl (Effexor Xr -) 75 mg PO DAILY@0800 [facility] Last Admin: 09/21/18 09:25 Dose: 75 mg Zolpidem Tartrate (Ambien -) 10 mg PO HS PRN PRN Reason: INSOMNIA Last Admin: 09/19/18 22:20 Dose: 10 mg Physical Examination Vital Signs: Vital Signs Temperature 99.6 F 09/22/18 06:00 Pulse Rate 120 H 09/22/18 06:00 Respiratory Rate 20 09/22/18 06:00 Blood Pressure 125/75 09/22/18 06:00 O2 Sat by Pulse Oximetry (%) 98 09/21/18 17:50 Constitutional: Yes: No Distress, Calm, Obese Eyes: Yes: WNL, Conjunctiva Clear, EOM Intact, PERRL HENT: Yes: WNL, Atraumatic, Normocephalic Neck: Yes: Supple, Other (trach with collar) Cardiovascular: Yes: Pulse Irregular, S1, S2 Respiratory: Yes: Wheezes (bases), Other (trach with collar) Gastrointestinal: Yes: Normal Bowel Sounds, Soft, Abdomen, Obese, Tenderness ( LMQ) Renal/: Yes: WNL Breast(s): Yes: WNL Musculoskeletal: Yes: WNL Extremities: Yes: WNL Edema: No Peripheral Pulses WNL: Yes Integumentary: Yes: Tattoos Neurological: Yes: WNL, Alert, Oriented, Cran Nerves II-XII Intact, moves all extremities, no tremor noted, finger to nose intact CBCD WBC 7.4 K/mm3 (4.0-10.0) 09/22/18 05:30 RBC 4.02 M/mm3 (3.60-5.2) 09/22/18 05:30 Hgb 8.7 GM/dL (10.7-15.3) L 09/22/18 05:30 Hct 30.1 % (32.4-45.2) L 09/22/18 05:30 MCV 74.8 fl (80-96) L 09/22/18 05:30 MCHC 28.8 g/dl (32.0-36.0) L 09/22/18 05:30 RDW 20.4 % (11.6-15.6) H 09/22/18 05:30 Plt Count 332 K/MM3 (134-434) 09/22/18 05:30 MPV 9.4 fl (7.5-11.1) 09/22/18 05:30 CMP Sodium 145 mmol/L (136-145) 09/22/18 05:30 Potassium 3.9 mmol/L (3.5-5.1) 09/22/18 05:30 Chloride 107 mmol/L (98-107) 09/22/18 05:30 Carbon Dioxide 31 mmol/L (21-32) 09/22/18 05:30 Anion Gap 7 MMOL/L (8-16) L 09/22/18 05:30 BUN 6 mg/dL (7-18) L 09/22/18 05:30 Creatinine 0.9 mg/dL (0.55-1.3) 09/22/18 05:30 Creat Clearance w eGFR > 60 (>60) 09/22/18 05:30 Calcium 8.7 mg/dL (8.5-10.1) 09/22/18 05:30 Total Bilirubin 0.2 mg/dL (0.2-1) 09/22/18 05:30 AST 23 U/L (15-37) 09/22/18 05:30 ALT 21 U/L (13-61) 09/22/18 05:30 Alkaline Phosphatase 188 U/L (45-117) H 09/22/18 05:30 Total Protein 6.0 g/dl (6.4-8.2) L 09/22/18 05:30 Albumin 2.3 g/dl (3.4-5.0) L 09/22/18 05:[address] head reviewed Plan 52 y/o woman who presented to the ED with complaints of N/V/D x 2 days now resolved, but reported having a decreased appetite and generalized malaise. Patient reported that she had stomach flu-like symptoms as well. Patient denies fever, dizziness, COX, CP, dysuria. I was consulted because of tremor that was reported and in speaking with nurse, the patient has underlying anxiety and restlessness. She can be irritable and aggitated, this AM was calm and cooperative for me. Did complete CT head which did not show acute changes. Is being treated for UTI which can precipitate tremor. Also with underlying neuropathy. Recommend continued Tx for UTI, Abx as needed. Maintain adequate hydration. Can continue anxiolytic which would help with tremor. Consider muscle relaxant, low dose if needed, but would continue medical mgmt for now. Has hypothyroid, monitor TSH and thyroid levels, as hyperthyroid can precipitate this as well. Monitor glucose, maintain normal range. Avoid hypo/ hyperglycemia. Follow up psych rec'd. Tremor stable at this time.
[2018-09-22] MEDS: RANITIDINE HCL 150 MG TABLET (FP) PO SCH (10:00)
[2018-09-22] MEDS: CEFTRIAXONE 2 GM in DEXTROSE 5%-WATER 100 ML IVPB SCH (10:00)
[2018-09-22 10:28] LABS: ANISOCYTOSIS 3+; MACROCYTOSIS 1+; PLATELET ESTIMATE NORMAL; TEAR DROP CELLS 2+
[2018-09-22] MEDS: OLANZapine 5 MG TABLET PO SCH ×2 (10:34→21:49)
[2018-09-22] MEDS: TOPIRAMATE 100 MG TABLET PO SCH (10:34)
[2018-09-22] MEDS: DOXEPIN HCL 25 MG CAPSULE PO SCH (10:34)
[2018-09-22] MEDS: APIXABAN 5 MG TABLET PO SCH ×2 (10:34→21:47)
[2018-09-22] MEDS: Methylnaltrexone Bromide 12 MG/0.6 ML KIT SQ SCH (10:35)
[2018-09-22] MEDS: VENLAFAXINE HCL 75 MG E.R. CAPSULES (FP) PO SCH (10:36)
[2018-09-22] MEDS ORDERED: DEXTROSE 5%-WATER 100 ML IVPB ONE (10:40)
--- NOTE | 2018-09-22 12:56 | PN ---
Progress Note, Physician History of Present Illness: pulmonary alert,on trach collar,passy-andre tolerating well - Current Medication List Current Medications: Active Medications Acetaminophen (Tylenol -) 650 mg PO Q6H PRN PRN Reason: PAIN LEVEL 1-5 OR FEVER Last Admin: 09/21/18 09:31 Dose: 650 mg Albuterol Sulfate (Ventolin 0.083% Nebulizer Soln -) 1 amp NEB Q4H PRN PRN Reason: SHORT OF BREATH/WHEEZING Albuterol/Ipratropium (Duoneb -) 1 amp NEB RQID [facility] Last Admin: 09/22/18 08:00 Dose: 1 amp Alprazolam (Xanax -) 0.25 mg PO Q8H PRN PRN Reason: ANXIETY Last Admin: 09/22/18 01:11 Dose: 0.25 mg Apixaban (Eliquis -) 5 mg PO BID [facility] Last Admin: 09/22/18 10:34 Dose: 5 mg Baclofen (Lioresal -) 20 mg PO TID [facility] Last Admin: 09/22/18 06:02 Dose: 20 mg Diltiazem HCl (Cardizem Cd -) 240 mg PO BID [facility] Last Admin: 09/21/18 22:37 Dose: 240 mg Doxepin HCl (Sinequan -) 25 mg PO DAILY [facility] Last Admin: 09/22/18 10:34 Dose: 25 mg Gabapentin 300 mg/ Gabapentin (200 mg) 500 mg PO TID [facility] Last Admin: 09/22/18 06:01 Dose: 500 mg Hydromorphone HCl (Dilaudid -) 4 mg PO Q8H PRN PRN Reason: PAIN LEVEL 6-10 Last Admin: 09/20/18 22:50 Dose: 4 mg Vancomycin HCl (Vancomycin (Pre-Docked)) 1,000 mg in 250 mls @ 166.667 mls/hr IVPB BID@0100,1300 [facility]; Protocol Last Admin: 09/22/18 01:10 Dose: 166.667 mls/hr Ceftriaxone Sodium 2 gm/ (Dextrose) 100 mls @ 200 mls/hr IVPB DAILY [facility]; Protocol Last Admin: 09/21/18 09:31 Dose: 200 mls/hr Insulin Aspart (Novolog Vial Sliding Scale -) 1 vial SQ ACHS [facility]; Protocol Last Admin: 09/22/18 06:59 Dose: Not Given Insulin Detemir (Levemir Vial) 35 units SQ BID@0700,2200 [facility] Last Admin: 09/22/18 06:59 Dose: 35 units Levothyroxine Sodium (Synthroid -) 50 mcg PO DAILY@0700 [facility] Last Admin: 09/22/18 06:55 Dose: 50 mcg Loratadine (Claritin -) 10 mg PO HS [facility] Last Admin: 09/21/18 22:37 Dose: 10 mg Methylnaltrexone [place] (Relistor -) 12 mg SQ DAILY [facility] Last Admin: 09/22/18 10:35 Dose: 12 mg Montelukast Sodium (Singulair -) 10 mg PO HS [facility] Last Admin: 09/21/18 22:37 Dose: 10 mg Non-Formulary Medication (Mirabegron [Myrbetriq]) 50 mg PO DAILY [facility] Non-Formulary Medication (Vortioxetine Hydrobromide [Trintellix]) 20 mg PO DAILY [facility] Olanzapine (Zyprexa -) 5 mg PO BID [facility] Last Admin: 09/22/18 10:34 Dose: 5 mg Ondansetron HCl (Zofran Injection) 4 mg IVPUSH Q6H PRN PRN Reason: NAUSEA AND/OR VOMITING Last Admin: 09/18/18 22:02 Dose: 4 mg Ranitidine HCl (Zantac -) 300 mg PO DAILY [facility] Last Admin: 09/21/18 09:24 Dose: 300 mg Rosuvastatin Calcium (Crestor -) 10 mg PO HS [facility] Last Admin: 09/21/18 22:44 Dose: 10 mg Topiramate (Topamax -) 100 mg PO DAILY [facility] Last Admin: 09/22/18 10:34 Dose: 100 mg Venlafaxine HCl (Effexor Xr -) 75 mg PO DAILY@0800 [facility] Last Admin: 09/22/18 10:36 Dose: 75 mg Zolpidem Tartrate (Ambien -) 10 mg PO HS PRN PRN Reason: INSOMNIA Last Admin: 09/19/18 22:20 Dose: 10 mg - Objective Vital Signs: Vital Signs Temperature 99.6 F 09/22/18 06:00 Pulse Rate 120 H 09/22/18 06:00 Respiratory Rate 20 09/22/18 06:00 Blood Pressure 125/75 09/22/18 06:00 O2 Sat by Pulse Oximetry (%) 98 09/21/18 17:50 Constitutional: Yes: Well Nourished, Calm Eyes: Yes: WNL HENT: Yes: WNL Neck: Yes: Supple (trach) Cardiovascular: Yes: Regular Rate and Rhythm, S1, S2 Respiratory: Yes: Wheezes (scattered wheezes) Gastrointestinal: Yes: Normal Bowel Sounds, Soft Extremities: Yes: WNL Edema: No Labs: CBC, BMP 09/22/18 05:30 09/22/18 05:30 Assessment/Plan Problem List - Problems (1) UTI (urinary tract infection) Code(s): N39.0 - URINARY TRACT INFECTION, SITE NOT SPECIFIED (2) Pneumonia Code(s): J18.9 - PNEUMONIA, UNSPECIFIED ORGANISM Qualifiers: Pneumonia type: due to unspecified organism Laterality: unspecified laterality Lung location: unspecified part of lung Qualified Code(s): J18.9 - Pneumonia, unspecified organism Assessment/Plan UTI R/O Pneumonia Chronic Hypoxic and Hypercapneic Respiratory Failure Asthma/COPD HTN Paroxysmal Atrial Fibrillation DM Hypothyroidism Chronic Pain - continue antibiotics per ID - repeat CXR - inhaled bronchodilators standing and PRN - O2 to keep Spo2 >90% - can defer systemic steroids at this time - rate controlled - anticoagulation DR RUFFIN
--- NOTE | 2018-09-22 17:19 | PN ---
Progress Note, Physician Chief Complaint: Awake and slightly agitated Afebrile BC MRSA Repeat BC prelim no growth - Current Medication List Current Medications: Active Medications Acetaminophen (Tylenol -) 650 mg PO Q6H PRN PRN Reason: PAIN LEVEL 1-5 OR FEVER Last Admin: 09/21/18 09:31 Dose: 650 mg Albuterol Sulfate (Ventolin 0.083% Nebulizer Soln -) 1 amp NEB Q4H PRN PRN Reason: SHORT OF BREATH/WHEEZING Albuterol/Ipratropium (Duoneb -) 1 amp NEB RQID [facility] Last Admin: 09/22/18 13:09 Dose: Not Given Alprazolam (Xanax -) 0.25 mg PO Q8H PRN PRN Reason: ANXIETY Last Admin: 09/22/18 01:11 Dose: 0.25 mg Apixaban (Eliquis -) 5 mg PO BID [facility] Last Admin: 09/22/18 10:34 Dose: 5 mg Baclofen (Lioresal -) 20 mg PO TID [facility] Last Admin: 09/22/18 13:41 Dose: 20 mg Diltiazem HCl (Cardizem Cd -) 240 mg PO BID [facility] Last Admin: 09/22/18 10:00 Dose: 240 mg Doxepin HCl (Sinequan -) 25 mg PO DAILY [facility] Last Admin: 09/22/18 10:34 Dose: 25 mg Gabapentin 300 mg/ Gabapentin (200 mg) 500 mg PO TID [facility] Last Admin: 09/22/18 13:40 Dose: 500 mg Hydromorphone HCl (Dilaudid -) 4 mg PO Q8H PRN PRN Reason: PAIN LEVEL 6-10 Last Admin: 09/20/18 22:50 Dose: 4 mg Vancomycin HCl (Vancomycin (Pre-Docked)) 1,000 mg in 250 mls @ 166.667 mls/hr IVPB BID@0100,1300 [facility]; Protocol Last Admin: 09/22/18 13:42 Dose: 166.667 mls/hr Ceftriaxone Sodium 2 gm/ (Dextrose) 100 mls @ 200 mls/hr IVPB DAILY [facility]; Protocol Last Admin: 09/22/18 10:00 Dose: 200 mls/hr Insulin Aspart (Novolog Vial Sliding Scale -) 1 vial SQ ACHS [facility]; Protocol Last Admin: 09/22/18 13:32 Dose: Not Given Insulin Detemir (Levemir Vial) 35 units SQ BID@0700,2200 [facility] Last Admin: 09/22/18 06:59 Dose: 35 units Levothyroxine Sodium (Synthroid -) 50 mcg PO DAILY@0700 [facility] Last Admin: 09/22/18 06:55 Dose: 50 mcg Loratadine (Claritin -) 10 mg PO HS [facility] Last Admin: 09/21/18 22:37 Dose: 10 mg Methylnaltrexone [place] (Relistor -) 12 mg SQ DAILY [facility] Last Admin: 09/22/18 10:35 Dose: 12 mg Montelukast Sodium (Singulair -) 10 mg PO HS [facility] Last Admin: 09/21/18 22:37 Dose: 10 mg Non-Formulary Medication (Mirabegron [Myrbetriq]) 50 mg PO DAILY [facility] Non-Formulary Medication (Vortioxetine Hydrobromide [Trintellix]) 20 mg PO DAILY [facility] Olanzapine (Zyprexa -) 5 mg PO BID [facility] Last Admin: 09/22/18 10:34 Dose: 5 mg Ondansetron HCl (Zofran Injection) 4 mg IVPUSH Q6H PRN PRN Reason: NAUSEA AND/OR VOMITING Last Admin: 09/18/18 22:02 Dose: 4 mg Ranitidine HCl (Zantac -) 300 mg PO DAILY [facility] Last Admin: 09/22/18 10:00 Dose: 300 mg Rosuvastatin Calcium (Crestor -) 10 mg PO HS [facility] Last Admin: 09/21/18 22:44 Dose: 10 mg Topiramate (Topamax -) 100 mg PO DAILY [facility] Last Admin: 09/22/18 10:34 Dose: 100 mg Venlafaxine HCl (Effexor Xr -) 75 mg PO DAILY@0800 [facility] Last Admin: 09/22/18 10:36 Dose: 75 mg Zolpidem Tartrate (Ambien -) 10 mg PO HS PRN PRN Reason: INSOMNIA Last Admin: 09/19/18 22:20 Dose: 10 mg - Objective Vital Signs: Vital Signs Temperature 99.3 F 09/22/18 15:12 Pulse Rate 116 H 09/22/18 15:12 Respiratory Rate 20 09/22/18 15:12 Blood Pressure 118/64 09/22/18 15:12 O2 Sat by Pulse Oximetry (%) 98 09/21/18 17:50 Constitutional: Yes: No Distress, Obese Eyes: Yes: Conjunctiva Clear Cardiovascular: Yes: Regular Rate and Rhythm, S1, S2 Respiratory: Yes: Rales, Rhonchi Gastrointestinal: Yes: Normal Bowel Sounds, Soft, Abdomen, Obese Edema: Yes Labs: CBC, BMP 09/22/18 05:30 09/22/18 05:30 Assessment/Plan MRSA bacteremia ? toxic metabolic encehalopathy Exacerbation COPD Repeat BC pending Continue vancomycin. Check trough
[2018-09-22] MEDS: LORATADINE 10 MG TABLET PO SCH (21:46)
[2018-09-22] MEDS: MONTELUKAST NA 10 MG TABLET PO SCH (21:47)
[2018-09-22] MEDS: ROSUVASTATIN CA 10 MG TABLET (FP) PO SCH (21:47)
[2018-09-22] MEDS: ZOLPIDEM TARTRATE 5 MG TABLET PO PRN (21:55)
[2018-09-22] MEDS: ONDANSETRON 4 MG/2 ML VIAL IVPUSH PRN (21:55)
[2018-09-23] MEDS: VANCOMYCIN 1 GRAM (PRE-DOCKED) 1,000 MG/250 ML BAG IVPB SCH ×2 (00:41→13:19)
[2018-09-23] MEDS ORDERED: GABAPENTIN 300 MG CAPSULE (FP) ONE ×3 (05:52→21:28)
[2018-09-23] MEDS ORDERED: GABAPENTIN 100 MG CAPSULE (FP) ONE ×3 (05:52→21:27)
[2018-09-23] MEDS: BACLOFEN 10 MG TABLET (FP) PO SCH ×3 (05:53→22:41)
[2018-09-23] MEDS: GABAPENTIN 300 MG, GABAPENTIN 200 MG PO SCH ×3 (05:53→22:41)
[2018-09-23] MEDS: LEVOTHYROXINE NA 50 MCG TABLET (FP) PO SCH (06:22)
[2018-09-23] MEDS: INSULIN SLIDING SCALE (NOVOLOG) 1 VIAL SQ SCH ×4 (07:07→22:42)
[2018-09-23] MEDS: INSULIN (LEVEMIR) 100 UNITS/ML UNITS SQ SCH ×2 (07:08→22:41)
[2018-09-23] MEDS ORDERED: INSULIN (LEVEMIR) 100 UNITS/ML UNITS SQ ONE (07:15)
[2018-09-23] MEDS: ALBUTEROL SO4 2.5/IPRATROPIUM 0.5 INH SOL 3 ML VIAL.NEB. NEB SCH ×4 (08:18→20:52)
[2018-09-23 08:41] LABS: ALBUMIN 2.3 g/dl (3.4-5.0); ALK PHOS 191 U/L (45-117); ANION GAP 9 MMOL/L (8-16); BILIRUBIN,TOTAL 0.4 mg/dL (0.2-1); BLOOD UREA NITROGEN 7 mg/dL (7-18); CALCIUM 8.3 mg/dL (8.5-10.1); CHLORIDE 105 mmol/L (98-107); CO2 26 mmol/L (21-32); CREATININE 0.8 mg/dL (0.55-1.3); GLUCOSE,RANDOM 154 mg/dL (74-106); POTASSIUM 4.1 mmol/L (3.5-5.1); SGOT/AST 20 U/L (15-37); SGPT/ALT 20 U/L (13-61); SODIUM 140 mmol/L (136-145); TOT PROT 6.1 g/dl (6.4-8.2)
[2018-09-23] MEDS ORDERED: DEXTROSE 5%-WATER 100 ML IVPB ONE (08:45)
--- NOTE | 2018-09-23 09:31 | PN ---
Progress Note (short form) - Note Progress Note: Neurology History of Present Illness: 52 y/o woman who presented to the ED with complaints of N/V/D x 2 days now resolved, but reported having a decreased appetite and generalized malaise. Patient reported that she had stomach flu-like symptoms as well. Patient denies fever, dizziness, COX, CP, dysuria. I was consulted because of tremor that was reported and in speaking with nurse, the patient has underlying anxiety and restlessness. She can be irritable and aggitated, this AM was calm and cooperative for me again. Did complete CT head which did not show acute changes. Is being treated for UTI which can precipitate tremor. Also with underlying neuropathy. Minimal tremor noted this AM as patient having breakfast , improved from initial visit. Is on xanax, will not add further medication. Active Medications Acetaminophen (Tylenol -) 650 mg PO Q6H PRN PRN Reason: PAIN LEVEL 1-5 OR FEVER Last Admin: 09/21/18 09:31 Dose: 650 mg Albuterol Sulfate (Ventolin 0.083% Nebulizer Soln -) 1 amp NEB Q4H PRN PRN Reason: SHORT OF BREATH/WHEEZING Albuterol/Ipratropium (Duoneb -) 1 amp NEB RQID [facility] Last Admin: 09/23/18 08:18 Dose: 1 amp Alprazolam (Xanax -) 0.25 mg PO Q8H PRN PRN Reason: ANXIETY Last Admin: 09/22/18 01:11 Dose: 0.25 mg Apixaban (Eliquis -) 5 mg PO BID [facility] Last Admin: 09/22/18 21:47 Dose: 5 mg Baclofen (Lioresal -) 20 mg PO TID [facility] Last Admin: 09/23/18 05:53 Dose: 20 mg Diltiazem HCl (Cardizem Cd -) 240 mg PO BID [facility] Last Admin: 09/22/18 21:46 Dose: 240 mg Doxepin HCl (Sinequan -) 25 mg PO DAILY [facility] Last Admin: 09/22/18 10:34 Dose: 25 mg Gabapentin 300 mg/ Gabapentin (200 mg) 500 mg PO TID [facility] Last Admin: 09/23/18 05:53 Dose: 500 mg Hydromorphone HCl (Dilaudid -) 4 mg PO Q8H PRN PRN Reason: PAIN LEVEL 6-10 Last Admin: 09/22/18 23:34 Dose: 4 mg Vancomycin HCl (Vancomycin (Pre-Docked)) 1,000 mg in 250 mls @ 166.667 mls/hr IVPB BID@0100,1300 [facility]; Protocol Last Admin: 09/23/18 00:41 Dose: 166.667 mls/hr Ceftriaxone Sodium 2 gm/ (Dextrose) 100 mls @ 200 mls/hr IVPB DAILY [facility]; Protocol Last Admin: 09/22/18 10:00 Dose: 200 mls/hr Insulin Aspart (Novolog Vial Sliding Scale -) 1 vial SQ ACHS [facility]; Protocol Last Admin: 09/23/18 07:07 Dose: Not Given Insulin Detemir (Levemir Vial) 35 units SQ BID@0700,2200 [facility] Last Admin: 09/23/18 07:08 Dose: 35 units Levothyroxine Sodium (Synthroid -) 50 mcg PO DAILY@0700 [facility] Last Admin: 09/23/18 06:22 Dose: 50 mcg Loratadine (Claritin -) 10 mg PO [facility] Last Admin: 09/22/18 21:46 Dose: 10 mg Methylnaltrexone [place] (Relistor -) 12 mg SQ DAILY [facility] Last Admin: 09/22/18 10:35 Dose: 12 mg Montelukast Sodium (Singulair -) 10 mg PO [facility] Last Admin: 09/22/18 21:47 Dose: 10 mg Non-Formulary Medication (Mirabegron [Myrbetriq]) 50 mg PO DAILY [facility] Non-Formulary Medication (Vortioxetine Hydrobromide [Trintellix]) 20 mg PO DAILY [facility] Olanzapine (Zyprexa -) 5 mg PO BID [facility] Last Admin: 09/22/18 21:49 Dose: 5 mg Ondansetron HCl (Zofran Injection) 4 mg IVPUSH Q6H PRN PRN Reason: NAUSEA AND/OR VOMITING Last Admin: 09/22/18 21:55 Dose: 4 mg Ranitidine HCl (Zantac -) 300 mg PO DAILY [facility] Last Admin: 09/22/18 10:00 Dose: 300 mg Rosuvastatin Calcium (Crestor -) 10 mg PO HS [facility] Last Admin: 09/22/18 21:47 Dose: 10 mg Topiramate (Topamax -) 100 mg PO DAILY [facility] Last Admin: 09/22/18 10:34 Dose: 100 mg Venlafaxine HCl (Effexor Xr -) 75 mg PO DAILY@0800 [facility] Last Admin: 09/22/18 10:36 Dose: 75 mg Zolpidem Tartrate (Ambien -) 10 mg PO HS PRN PRN Reason: INSOMNIA Last Admin: 09/22/18 21:55 Dose: 10 mg Physical Examination Vital Signs: Vital Signs Period Temp Pulse Resp BP Sys/Dan Pulse Ox Last 24 Hr 99.0 F-100.6 F 102-136 20-22 116-130/64-72 Constitutional: Yes: No Distress, Calm, Obese Eyes: Yes: WNL, Conjunctiva Clear, EOM Intact, PERRL HENT: Yes: WNL, Atraumatic, Normocephalic Neck: Yes: Supple, Other (trach with collar) Cardiovascular: Yes: Pulse Irregular, S1, S2 Respiratory: Yes: Wheezes (bases), Other (trach with collar) Gastrointestinal: Yes: Normal Bowel Sounds, Soft, Abdomen, Obese, Tenderness ( LMQ) Renal/: Yes: WNL Breast(s): Yes: WNL Musculoskeletal: Yes: WNL Extremities: Yes: WNL Edema: No Peripheral Pulses WNL: Yes Integumentary: Yes: Tattoos Neurological: Yes: WNL, Alert, Oriented, Cran Nerves II-XII Intact, moves all extremities, no tremor noted, finger to nose intact CBCD WBC 7.4 K/mm3 (4.0-10.0) 09/22/18 05:30 RBC 4.02 M/mm3 (3.60-5.2) 09/22/18 05:30 Hgb 8.7 GM/dL (10.7-15.3) L 09/22/18 05:30 Hct 30.1 % (32.4-45.2) L 09/22/18 05:30 MCV 74.8 fl (80-96) L 09/22/18 05:30 MCHC 28.8 g/dl (32.0-36.0) L 09/22/18 05:30 RDW 20.4 % (11.6-15.6) H 09/22/18 05:30 Plt Count 332 K/MM3 (134-434) 09/22/18 05:30 MPV 9.4 fl (7.5-11.1) 09/22/18 05:30 CMP Sodium 145 mmol/L (136-145) 09/22/18 05:30 Potassium 3.9 mmol/L (3.5-5.1) 09/22/18 05:30 Chloride 107 mmol/L (98-107) 09/22/18 05:30 Carbon Dioxide 31 mmol/L (21-32) 09/22/18 05:30 Anion Gap 7 MMOL/L (8-16) L 09/22/18 05:30 BUN 6 mg/dL (7-18) L 09/22/18 05:30 Creatinine 0.9 mg/dL (0.55-1.3) 09/22/18 05:30 Creat Clearance w eGFR > 60 (>60) 09/22/18 05:30 Calcium 8.7 mg/dL (8.5-10.1) 09/22/18 05:30 Total Bilirubin 0.2 mg/dL (0.2-1) 09/22/18 05:30 AST 23 U/L (15-37) 09/22/18 05:30 ALT 21 U/L (13-61) 09/22/18 05:30 Alkaline Phosphatase 188 U/L (45-117) H 09/22/18 05:30 Total Protein 6.0 g/dl (6.4-8.2) L 09/22/18 05:30 Albumin 2.3 g/dl (3.4-5.0) L 09/22/18 05:[address] head reviewed Plan 52 y/o woman who presented to the ED with complaints of N/V/D x 2 days now resolved, but reported having a decreased appetite and generalized malaise. Patient reported that she had stomach flu-like symptoms as well. Patient denies fever, dizziness, COX, CP, dysuria. I was consulted because of tremor that was reported and in speaking with nurse, the patient has underlying anxiety and restlessness. She can be irritable and aggitated, this AM was calm and cooperative for me. Did complete CT head which did not show acute changes. Is being treated for UTI which can precipitate tremor. Also with underlying neuropathy. Recommend continued Tx for UTI, Abx as needed. Maintain adequate hydration. Can continue anxiolytic which would help with tremor. Consider muscle relaxant, low dose if needed, but would continue medical mgmt for now. Has hypothyroid, monitor TSH and thyroid levels, as hyperthyroid can precipitate this as well. Monitor glucose, maintain normal range. Avoid hypo/ hyperglycemia. Follow up psych rec'd. Tremor stable at this time, would not add further medication.
[2018-09-23 09:32] LABS: BASO % 0.6 % (0-2.0); EOS % 3.2 % (0-4.5); HEMATOCRIT 31.9 % (32.4-45.2); HEMOGLOBIN 9.2 GM/dL (10.7-15.3); LYMPH % 14.5 % (8-40); MCH 21.5 pg (25.7-33.7); MCHC 28.8 g/dl (32.0-36.0); MEAN CELL VOLUME 74.8 fl (80-96); MEAN PLT VOLUME 9.6 fl (7.5-11.1); MONO % 12.6 % (3.8-10.2); NEUT % 69.1 % (42.8-82.8); PLATELET COUNT 322 K/MM3 (134-434); RBC 4.26 M/mm3 (3.60-5.2); RDW 20.8 % (11.6-15.6)
--- NOTE | 2018-09-23 10:35 | PN ---
Progress Note (short form) - Note Progress Note: NAD on Trach collar. 1 episode of blood tinged sputum noted (likely due to irritation from dislodged Trach on Thursday). Mildly confused. Intake & Output 09/20/18 09/21/18 09/22/18 09/23/18 23:59 23:59 23:59 23:59 Intake Total 418 226 7687 550 Balance 825 500 4857 550 Weight 161 lb Last Vital Signs Temp Pulse Resp BP Pulse Ox 100.6 F H 102 H 22 H 116/68 98 09/23/18 06:00 09/23/18 06:00 09/23/18 06:00 09/23/18 06:00 09/21/18 17:50 Active Medications Acetaminophen (Tylenol -) 650 mg PO Q6H PRN PRN Reason: PAIN LEVEL 1-5 OR FEVER Last Admin: 09/21/18 09:31 Dose: 650 mg Albuterol Sulfate (Ventolin 0.083% Nebulizer Soln -) 1 amp NEB Q4H PRN PRN Reason: SHORT OF BREATH/WHEEZING Albuterol/Ipratropium (Duoneb -) 1 amp NEB RQID [facility] Last Admin: 09/23/18 08:18 Dose: 1 amp Alprazolam (Xanax -) 0.25 mg PO Q8H PRN PRN Reason: ANXIETY Last Admin: 09/22/18 01:11 Dose: 0.25 mg Apixaban (Eliquis -) 5 mg PO BID [facility] Last Admin: 09/22/18 21:47 Dose: 5 mg Baclofen (Lioresal -) 20 mg PO TID [facility] Last Admin: 09/23/18 05:53 Dose: 20 mg Diltiazem HCl (Cardizem Cd -) 240 mg PO BID [facility] Last Admin: 09/22/18 21:46 Dose: 240 mg Doxepin HCl (Sinequan -) 25 mg PO DAILY [facility] Last Admin: 09/22/18 10:34 Dose: 25 mg Gabapentin 300 mg/ Gabapentin (200 mg) 500 mg PO TID [facility] Last Admin: 09/23/18 05:53 Dose: 500 mg Hydromorphone HCl (Dilaudid -) 4 mg PO Q8H PRN PRN Reason: PAIN LEVEL 6-10 Last Admin: 09/22/18 23:34 Dose: 4 mg IV Flush (Picc Line Flush) 8 ml IVPUSH PRN PRN PRN Reason: Protocol Vancomycin HCl (Vancomycin (Pre-Docked)) 1,000 mg in 250 mls @ 166.667 mls/hr IVPB BID@0100,1300 [facility]; Protocol Last Admin: 09/23/18 00:41 Dose: 166.667 mls/hr Ceftriaxone Sodium 2 gm/ (Dextrose) 100 mls @ 200 mls/hr IVPB DAILY [facility]; Protocol Last Admin: 09/22/18 10:00 Dose: 200 mls/hr Insulin Aspart (Novolog Vial Sliding Scale -) 1 vial SQ ACHS [facility]; Protocol Last Admin: 09/23/18 07:07 Dose: Not Given Insulin Detemir (Levemir Vial) 35 units SQ BID@0700,2200 [facility] Last Admin: 09/23/18 07:08 Dose: 35 units Levothyroxine Sodium (Synthroid -) 50 mcg PO DAILY@0700 [facility] Last Admin: 09/23/18 06:22 Dose: 50 mcg Loratadine (Claritin -) 10 mg PO [facility] Last Admin: 09/22/18 21:46 Dose: 10 mg Methylnaltrexone [place] (Relistor -) 12 mg SQ DAILY [facility] Last Admin: 09/22/18 10:35 Dose: 12 mg Montelukast Sodium (Singulair -) 10 mg PO [facility] Last Admin: 09/22/18 21:47 Dose: 10 mg Non-Formulary Medication (Mirabegron [Myrbetriq]) 50 mg PO DAILY [facility] Non-Formulary Medication (Vortioxetine Hydrobromide [Trintellix]) 20 mg PO DAILY [facility] Olanzapine (Zyprexa -) 5 mg PO BID [facility] Last Admin: 09/22/18 21:49 Dose: 5 mg Ondansetron HCl (Zofran Injection) 4 mg IVPUSH Q6H PRN PRN Reason: NAUSEA AND/OR VOMITING Last Admin: 09/22/18 21:55 Dose: 4 mg Ranitidine HCl (Zantac -) 300 mg PO DAILY [facility] Last Admin: 09/22/18 10:00 Dose: 300 mg Rosuvastatin Calcium (Crestor -) 10 mg PO [facility] Last Admin: 09/22/18 21:47 Dose: 10 mg Topiramate (Topamax -) 100 mg PO DAILY [facility] Last Admin: 09/22/18 10:34 Dose: 100 mg Venlafaxine HCl (Effexor Xr -) 75 mg PO DAILY@0800 [facility] Last Admin: 09/22/18 10:36 Dose: 75 mg Zolpidem Tartrate (Ambien -) 10 mg PO HS PRN PRN Reason: INSOMNIA Last Admin: 09/22/18 21:55 Dose: 10 mg Constitutional: Yes: NAD, mildly confused Eyes: Yes: Conjunctiva Clear, EOM Intact HENT: Yes: Atraumatic, Normocephalic Neck: Yes: Supple, Trachea Midline Cardiovascular: Yes: Regular Rate and Rhythm Respiratory: Yes: Diminished (distant breath sounds) Gastrointestinal: Yes: Normal Bowel Sounds, Soft, Abdomen, Obese. No: Tenderness Edema: No Neurological: Yes: Oriented Labs: Laboratory Results - last 24 hr 09/22/18 09/22/18 09/22/18 05:30 12:30 17:19 WBC RBC Hgb Hct MCV MCH MCHC RDW Plt Count MPV Absolute Neuts (auto) Neutrophils % Lymphocytes % Monocytes % Eosinophils % Basophils % Nucleated RBC % Hypochromia 1+ Platelet Estimate Normal Polychromasia 1+ Poikilocytosis 1+ Anisocytosis 3+ Microcytosis 3+ Macrocytosis 1+ Tear Drop Cells 2+ Stomatocytes 1+ Sodium Potassium Chloride Carbon Dioxide Anion Gap BUN Creatinine Creat Clearance w eGFR POC Glucometer 257 443 Random Glucose Calcium Total Bilirubin AST ALT Alkaline Phosphatase Total Protein Albumin 09/22/18 09/23/18 09/23/18 19:35 05:49 07:00 WBC RBC Hgb Hct MCV MCH MCHC RDW Plt Count MPV Absolute Neuts (auto) Neutrophils % Lymphocytes % Monocytes % Eosinophils % Basophils % Nucleated RBC % Hypochromia Platelet Estimate Polychromasia Poikilocytosis Anisocytosis Microcytosis Macrocytosis Tear Drop Cells Stomatocytes Sodium 140 Potassium 4.1 Chloride 105 Carbon Dioxide 26 Anion Gap 9 BUN 7 Creatinine 0.8 Creat Clearance w eGFR > 60 POC Glucometer 196 177 Random Glucose 154 H Calcium 8.3 L Total Bilirubin 0.4 AST 20 ALT 20 Alkaline Phosphatase 191 H Total Protein 6.1 L Albumin 2.3 L 09/23/18 07:00 WBC 11.0 H RBC 4.26 Hgb 9.2 L Hct 31.9 L MCV 74.8 L MCH 21.5 L MCHC 28.8 L RDW 20.8 H Plt Count 322 MPV 9.6 Absolute Neuts (auto) 7.6 Neutrophils % 69.1 Lymphocytes % 14.5 Monocytes % 12.6 H Eosinophils % 3.2 Basophils % 0.6 Nucleated RBC % 0 Hypochromia Platelet Estimate Polychromasia Poikilocytosis Anisocytosis Microcytosis Macrocytosis Tear Drop Cells Stomatocytes Sodium Potassium Chloride Carbon Dioxide Anion Gap BUN Creatinine Creat Clearance w eGFR POC Glucometer Random Glucose Calcium Total Bilirubin AST ALT Alkaline Phosphatase Total Protein Albumin Problem List - Problems (1) UTI (urinary tract infection) Code(s): N39.0 - URINARY TRACT INFECTION, SITE NOT SPECIFIED (2) Pneumonia Code(s): J18.9 - PNEUMONIA, UNSPECIFIED ORGANISM Qualifiers: Pneumonia type: due to unspecified organism Laterality: unspecified laterality Lung location: unspecified part of lung Qualified Code(s): J18.9 - Pneumonia, unspecified organism Assessment/Plan UTI Do not suspect Pneumonia but rather atelectasis Chronic Hypoxic and Hypercapneic Respiratory Failure Asthma/COPD HTN Paroxysmal Atrial Fibrillation DM Hypothyroidism Chronic Pain Toxic Metabolic Encephalopathy - Antibiotics per ID - inhaled bronchodilators standing and PRN - O2 to keep Spo2 >90% - rate controlled - continue anticoagulation - Trach collar O2 Dr Castaneda
[2018-09-23] MEDS: CEFTRIAXONE 2 GM in DEXTROSE 5%-WATER 100 ML IVPB SCH (10:52)
[2018-09-23] MEDS: APIXABAN 5 MG TABLET PO SCH ×2 (10:54→22:41)
[2018-09-23] MEDS: OLANZapine 5 MG TABLET PO SCH ×2 (10:54→22:41)
[2018-09-23] MEDS: VENLAFAXINE HCL 75 MG E.R. CAPSULES (FP) PO SCH (10:54)
[2018-09-23] MEDS: RANITIDINE HCL 150 MG TABLET (FP) PO SCH (10:55)
[2018-09-23] MEDS: DOXEPIN HCL 25 MG CAPSULE PO SCH (10:55)
[2018-09-23] MEDS: TOPIRAMATE 100 MG TABLET PO SCH (10:56)
[2018-09-23] MEDS ORDERED: PT OWN MED DRAWER 7, Y5N ONE ×3 (10:58→21:29)
[2018-09-23] MEDS: Methylnaltrexone Bromide 12 MG/0.6 ML KIT SQ SCH (13:20)
[2018-09-23] MEDS: ALPRAZolam 0.25 MG TABLET PO PRN ×2 (13:21→22:44)
--- NOTE | 2018-09-23 16:30 | PN ---
Progress Note, Physician Chief Complaint: Awake and more alert Low grade temps WBC slightly elevated today BC MRSA Repeat BC prelim no growth Lab unable to get BC ordered today - Current Medication List Current Medications: Active Medications Acetaminophen (Tylenol -) 650 mg PO Q6H PRN PRN Reason: PAIN LEVEL 1-5 OR FEVER Last Admin: 09/21/18 09:31 Dose: 650 mg Albuterol Sulfate (Ventolin 0.083% Nebulizer Soln -) 1 amp NEB Q4H PRN PRN Reason: SHORT OF BREATH/WHEEZING Albuterol/Ipratropium (Duoneb -) 1 amp NEB RQID [facility] Last Admin: 09/23/18 14:16 Dose: 1 amp Alprazolam (Xanax -) 0.25 mg PO Q8H PRN PRN Reason: ANXIETY Last Admin: 09/23/18 13:21 Dose: 0.25 mg Apixaban (Eliquis -) 5 mg PO BID [facility] Last Admin: 09/23/18 10:54 Dose: 5 mg Baclofen (Lioresal -) 20 mg PO TID [facility] Last Admin: 09/23/18 13:21 Dose: 20 mg Diltiazem HCl (Cardizem Cd -) 240 mg PO BID [facility] Last Admin: 09/23/18 10:55 Dose: 240 mg Doxepin HCl (Sinequan -) 25 mg PO DAILY [facility] Last Admin: 09/23/18 10:55 Dose: 25 mg Gabapentin 300 mg/ Gabapentin (200 mg) 500 mg PO TID [facility] Last Admin: 09/23/18 13:21 Dose: 500 mg Hydromorphone HCl (Dilaudid -) 4 mg PO Q8H PRN PRN Reason: PAIN LEVEL 6-10 Last Admin: 09/22/18 23:34 Dose: 4 mg IV Flush (Picc Line Flush) 8 ml IVPUSH PRN PRN PRN Reason: Protocol Vancomycin HCl (Vancomycin (Pre-Docked)) 1,000 mg in 250 mls @ 166.667 mls/hr IVPB BID@0100,1300 [facility]; Protocol Last Admin: 09/23/18 13:19 Dose: 166.667 mls/hr Ceftriaxone Sodium 2 gm/ (Dextrose) 100 mls @ 200 mls/hr IVPB DAILY [facility]; Protocol Last Admin: 09/23/18 10:52 Dose: 200 mls/hr Insulin Aspart (Novolog Vial Sliding Scale -) 1 vial SQ [facility]; Protocol Last Admin: 09/23/18 11:35 Dose: 5 units Insulin Detemir (Levemir Vial) 35 units SQ BID@0700,2200 [facility] Last Admin: 09/23/18 07:08 Dose: 35 units Levothyroxine Sodium (Synthroid -) 50 mcg PO DAILY@0700 [facility] Last Admin: 09/23/18 06:22 Dose: 50 mcg Loratadine (Claritin -) 10 mg PO HS [facility] Last Admin: 09/22/18 21:46 Dose: 10 mg Methylnaltrexone [place] (Relistor -) 12 mg SQ DAILY [facility] Last Admin: 09/23/18 13:20 Dose: 12 mg Montelukast Sodium (Singulair -) 10 mg PO HS [facility] Last Admin: 09/22/18 21:47 Dose: 10 mg Non-Formulary Medication (Mirabegron [Myrbetriq]) 50 mg PO DAILY [facility] Non-Formulary Medication (Vortioxetine Hydrobromide [Trintellix]) 20 mg PO DAILY [facility] Olanzapine (Zyprexa -) 5 mg PO BID [facility] Last Admin: 09/23/18 10:54 Dose: 5 mg Ondansetron HCl (Zofran Injection) 4 mg IVPUSH Q6H PRN PRN Reason: NAUSEA AND/OR VOMITING Last Admin: 09/22/18 21:55 Dose: 4 mg Ranitidine HCl (Zantac -) 300 mg PO DAILY [facility] Last Admin: 09/23/18 10:55 Dose: 300 mg Rosuvastatin Calcium (Crestor -) 10 mg PO HS [facility] Last Admin: 09/22/18 21:47 Dose: 10 mg Topiramate (Topamax -) 100 mg PO DAILY [facility] Last Admin: 09/23/18 10:56 Dose: 100 mg Venlafaxine HCl (Effexor Xr -) 75 mg PO DAILY@0800 [facility] Last Admin: 09/23/18 10:54 Dose: 75 mg Zolpidem Tartrate (Ambien -) 10 mg PO HS PRN PRN Reason: INSOMNIA Last Admin: 09/22/18 21:55 Dose: 10 mg - Objective Vital Signs: Vital Signs Temperature 98.7 F 09/23/18 14:59 Pulse Rate 112 H 09/23/18 14:59 Respiratory Rate 22 H 09/23/18 14:59 Blood Pressure 131/76 09/23/18 14:59 O2 Sat by Pulse Oximetry (%) 98 09/21/18 17:50 Constitutional: Yes: No Distress, Obese Cardiovascular: Yes: Regular Rate and Rhythm, S1, S2 Respiratory: Yes: Rhonchi Gastrointestinal: Yes: Normal Bowel Sounds, Soft, Abdomen, Obese. No: Tenderness Edema: No Labs: CBC, BMP 09/23/18 07:00 09/23/18 07:00 Assessment/Plan MRSA bacteremia ? toxic metabolic encehalopathy improved Exacerbation COPD Repeat BC pending Continue vancomycin. Check trough Echo PICC for outpatient vancomycin 1gm q12h x 3w
[2018-09-23] MEDS ORDERED: INSULIN (NOVOLOG) ASPART 100 UNITS/ML 10ML VIAL ONE (16:32)
--- NOTE | 2018-09-23 21:45 | PN ---
Progress Note, Physician Chief Complaint: ASLEEP COMFORTABLE EVENTS AND NOTES REVIEWED - Current Medication List Current Medications: Active Medications Acetaminophen (Tylenol -) 650 mg PO Q6H PRN PRN Reason: PAIN LEVEL 1-5 OR FEVER Last Admin: 09/21/18 09:31 Dose: 650 mg Albuterol Sulfate (Ventolin 0.083% Nebulizer Soln -) 1 amp NEB Q4H PRN PRN Reason: SHORT OF BREATH/WHEEZING Albuterol/Ipratropium (Duoneb -) 1 amp NEB RQID [facility] Last Admin: 09/23/18 20:52 Dose: 1 amp Alprazolam (Xanax -) 0.25 mg PO Q8H PRN PRN Reason: ANXIETY Last Admin: 09/23/18 13:21 Dose: 0.25 mg Apixaban (Eliquis -) 5 mg PO BID [facility] Last Admin: 09/23/18 10:54 Dose: 5 mg Baclofen (Lioresal -) 20 mg PO TID [facility] Last Admin: 09/23/18 13:21 Dose: 20 mg Diltiazem HCl (Cardizem Cd -) 240 mg PO BID [facility] Last Admin: 09/23/18 10:55 Dose: 240 mg Doxepin HCl (Sinequan -) 25 mg PO DAILY [facility] Last Admin: 09/23/18 10:55 Dose: 25 mg Gabapentin 300 mg/ Gabapentin (200 mg) 500 mg PO TID [facility] Last Admin: 09/23/18 13:21 Dose: 500 mg Hydromorphone HCl (Dilaudid -) 4 mg PO Q8H PRN PRN Reason: PAIN LEVEL 6-10 Last Admin: 09/22/18 23:34 Dose: 4 mg IV Flush (Picc Line Flush) 8 ml IVPUSH PRN PRN PRN Reason: Protocol Vancomycin HCl (Vancomycin (Pre-Docked)) 1,000 mg in 250 mls @ 166.667 mls/hr IVPB BID@0100,1300 [facility]; Protocol Last Admin: 09/23/18 13:19 Dose: 166.667 mls/hr Ceftriaxone Sodium 2 gm/ (Dextrose) 100 mls @ 200 mls/hr IVPB DAILY [facility]; Protocol Last Admin: 09/23/18 10:52 Dose: 200 mls/hr Insulin Aspart (Novolog Vial Sliding Scale -) 1 vial SQ ACHS [facility]; Protocol Last Admin: 09/23/18 16:35 Dose: 5 units Insulin Detemir (Levemir Vial) 35 units SQ BID@0700,2200 [facility] Last Admin: 09/23/18 07:08 Dose: 35 units Levothyroxine Sodium (Synthroid -) 50 mcg PO DAILY@0700 [facility] Last Admin: 09/23/18 06:22 Dose: 50 mcg Loratadine (Claritin -) 10 mg PO HS [facility] Last Admin: 09/22/18 21:46 Dose: 10 mg Methylnaltrexone [place] (Relistor -) 12 mg SQ DAILY [facility] Last Admin: 09/23/18 13:20 Dose: 12 mg Montelukast Sodium (Singulair -) 10 mg PO HS [facility] Last Admin: 09/22/18 21:47 Dose: 10 mg Non-Formulary Medication (Mirabegron [Myrbetriq]) 50 mg PO DAILY [facility] Non-Formulary Medication (Vortioxetine Hydrobromide [Trintellix]) 20 mg PO DAILY [facility] Olanzapine (Zyprexa -) 5 mg PO BID [facility] Last Admin: 09/23/18 10:54 Dose: 5 mg Ondansetron HCl (Zofran Injection) 4 mg IVPUSH Q6H PRN PRN Reason: NAUSEA AND/OR VOMITING Last Admin: 09/22/18 21:55 Dose: 4 mg Ranitidine HCl (Zantac -) 300 mg PO DAILY [facility] Last Admin: 09/23/18 10:55 Dose: 300 mg Rosuvastatin Calcium (Crestor -) 10 mg PO HS [facility] Last Admin: 09/22/18 21:47 Dose: 10 mg Topiramate (Topamax -) 100 mg PO DAILY [facility] Last Admin: 09/23/18 10:56 Dose: 100 mg Venlafaxine HCl (Effexor Xr -) 75 mg PO DAILY@0800 [facility] Last Admin: 09/23/18 10:54 Dose: 75 mg Zolpidem Tartrate (Ambien -) 10 mg PO HS PRN PRN Reason: INSOMNIA Last Admin: 09/22/18 21:55 Dose: 10 mg - Objective Vital Signs: Vital Signs Temperature 97.7 F 09/23/18 18:34 Pulse Rate 109 H 09/23/18 18:34 Respiratory Rate 18 09/23/18 18:34 Blood Pressure 120/70 09/23/18 18:34 O2 Sat by Pulse Oximetry (%) 98 09/21/18 17:50 Constitutional: Yes: Mild Distress Eyes: Yes: WNL HENT: Yes: Other Neck: Yes: Other (TRACHEOSTMY) Cardiovascular: Yes: WNL Respiratory: Yes: Other (TRACHCOLLAR) Gastrointestinal: Yes: Soft, Abdomen, Obese Genitourinary: Yes: Incontinence Musculoskeletal: Yes: Muscle Weakness Extremities: Yes: Other Edema: No Integumentary: Yes: Other Wound/Incision: Yes: Dressing Dry and Intact Neurological: Yes: Pre-Existing Deficit ...Motor Strength: LLE, RLE Psychiatric: Yes: Other Labs: CBC, BMP 09/23/18 07:00 09/23/18 07:00 Problem List - Problems (1) Elevated lactic acid level Code(s): R79.89 - OTHER SPECIFIED ABNORMAL FINDINGS OF BLOOD CHEMISTRY (2) Sepsis Code(s): A41.9 - SEPSIS, UNSPECIFIED ORGANISM (3) UTI (urinary tract infection) Code(s): N39.0 - URINARY TRACT INFECTION, SITE NOT SPECIFIED (4) Abdominal pain Code(s): R10.9 - UNSPECIFIED ABDOMINAL PAIN (5) Acute and chronic respiratory failure with hypoxia Code(s): J96.21 - ACUTE AND CHRONIC RESPIRATORY FAILURE WITH HYPOXIA (6) Anemia Code(s): D64.9 - ANEMIA, UNSPECIFIED (7) Chronic respiratory failure Code(s): J96.10 - CHRONIC RESPIRATORY FAILURE, UNSP W HYPOXIA OR HYPERCAPNIA (8) Diabetes Code(s): E11.9 - TYPE 2 DIABETES MELLITUS WITHOUT COMPLICATIONS (9) Hypothyroid Code(s): E03.9 - HYPOTHYROIDISM, UNSPECIFIED Qualifiers: Hypothyroidism type: unspecified Qualified Code(s): E03.9 - Hypothyroidism , unspecified (10) Anxiety Code(s): F41.9 - ANXIETY DISORDER, UNSPECIFIED (11) Bipolar 2 disorder Code(s): F31.81 - BIPOLAR II DISORDER (12) COPD (chronic obstructive pulmonary disease) Code(s): J44.9 - CHRONIC OBSTRUCTIVE PULMONARY DISEASE, UNSPECIFIED Qualifiers: COPD type: unspecified COPD Qualified Code(s): J44.9 - Chronic obstructive pulmonary disease, unspecified (13) Depression with anxiety Code(s): F41.8 - OTHER SPECIFIED ANXIETY DISORDERS (14) Diabetes mellitus, insulin dependent (IDDM), uncontrolled Code(s): E10.65 - TYPE 1 DIABETES MELLITUS WITH HYPERGLYCEMIA (15) Neuropathy Code(s): G62.9 - POLYNEUROPATHY, UNSPECIFIED (16) Paroxysmal atrial fibrillation Code(s): I48.0 - PAROXYSMAL ATRIAL FIBRILLATION Assessment/Plan IV STEROIDS 02 SUPPORT ON IV ABX WILL NEED PICC LINE WITH 3 WEEKS TX PSYCHIATRY/NEUO EVAL NO ACUTE CNC CHANGES DVT PROPHYLAXIS CHECK LABS O2 SUPPORT SNF
[2018-09-23] MEDS: ROSUVASTATIN CA 10 MG TABLET (FP) PO SCH (22:41)
[2018-09-23] MEDS: LORATADINE 10 MG TABLET PO SCH (22:41)
[2018-09-23] MEDS: MONTELUKAST NA 10 MG TABLET PO SCH (22:41)
[2018-09-23] MEDS: ZOLPIDEM TARTRATE 5 MG TABLET PO PRN (22:44)
[2018-09-24] MEDS ORDERED: PT OWN MED DRAWER 7, Y5N ONE ×6 (00:07→21:18)
[2018-09-24] MEDS: VANCOMYCIN 1 GRAM (PRE-DOCKED) 1,000 MG/250 ML BAG IVPB SCH ×2 (00:10→14:38)
[2018-09-24] MEDS ORDERED: GABAPENTIN 300 MG CAPSULE (FP) ONE ×2 (06:00→21:15)
[2018-09-24] MEDS ORDERED: GABAPENTIN 100 MG CAPSULE (FP) ONE ×2 (06:00→21:15)
[2018-09-24] MEDS: INSULIN SLIDING SCALE (NOVOLOG) 1 VIAL SQ SCH ×4 (06:43→22:15)
[2018-09-24] MEDS: BACLOFEN 10 MG TABLET (FP) PO SCH ×3 (06:43→22:02)
[2018-09-24] MEDS: GABAPENTIN 300 MG, GABAPENTIN 200 MG PO SCH ×3 (06:43→22:01)
[2018-09-24] MEDS: LEVOTHYROXINE NA 50 MCG TABLET (FP) PO SCH (06:43)
[2018-09-24] MEDS: INSULIN (LEVEMIR) 100 UNITS/ML UNITS SQ SCH (06:45)
[2018-09-24] MEDS: ALPRAZolam 0.25 MG TABLET PO PRN ×2 (06:53→22:05)
[2018-09-24] MEDS: ALBUTEROL SO4 2.5/IPRATROPIUM 0.5 INH SOL 3 ML VIAL.NEB. NEB SCH ×4 (07:53→19:32)
[2018-09-24] MEDS: VENLAFAXINE HCL 75 MG E.R. CAPSULES (FP) PO SCH (07:58)
--- NOTE | 2018-09-24 08:07 | PN ---
Progress Note, Physician Chief Complaint: FEVER 102.8 MAX ASLEEP NAD - Current Medication List Current Medications: Active Medications Acetaminophen (Tylenol -) 650 mg PO Q6H PRN PRN Reason: PAIN LEVEL 1-5 OR FEVER Last Admin: 09/21/18 09:31 Dose: 650 mg Albuterol Sulfate (Ventolin 0.083% Nebulizer Soln -) 1 amp NEB Q4H PRN PRN Reason: SHORT OF BREATH/WHEEZING Albuterol/Ipratropium (Duoneb -) 1 amp NEB RQID [facility] Last Admin: 09/24/18 07:53 Dose: 1 amp Alprazolam (Xanax -) 0.25 mg PO Q8H PRN PRN Reason: ANXIETY Last Admin: 09/24/18 06:53 Dose: 0.25 mg Apixaban (Eliquis -) 5 mg PO BID [facility] Last Admin: 09/23/18 22:41 Dose: 5 mg Baclofen (Lioresal -) 20 mg PO TID [facility] Last Admin: 09/24/18 06:43 Dose: 20 mg Diltiazem HCl (Cardizem Cd -) 240 mg PO BID [facility] Last Admin: 09/23/18 22:38 Dose: 240 mg Doxepin HCl (Sinequan -) 25 mg PO DAILY [facility] Last Admin: 09/23/18 10:55 Dose: 25 mg Gabapentin 300 mg/ Gabapentin (200 mg) 500 mg PO TID [facility] Last Admin: 09/24/18 06:43 Dose: 500 mg Hydromorphone HCl (Dilaudid -) 4 mg PO Q8H PRN PRN Reason: PAIN LEVEL 6-10 Last Admin: 09/24/18 06:53 Dose: 4 mg IV Flush (Picc Line Flush) 8 ml IVPUSH PRN PRN PRN Reason: Protocol Vancomycin HCl (Vancomycin (Pre-Docked)) 1,000 mg in 250 mls @ 166.667 mls/hr IVPB BID@0100,1300 [facility]; Protocol Last Admin: 09/24/18 00:10 Dose: 166.667 mls/hr Ceftriaxone Sodium 2 gm/ (Dextrose) 100 mls @ 200 mls/hr IVPB DAILY [facility]; Protocol Last Admin: 09/23/18 10:52 Dose: 200 mls/hr Insulin Aspart (Novolog Vial Sliding Scale -) 1 vial SQ ACHS [facility]; Protocol Last Admin: 09/24/18 06:43 Dose: Not Given Insulin Detemir (Levemir Vial) 35 units SQ BID@0700,2200 [facility] Last Admin: 09/24/18 06:45 Dose: 35 units Levothyroxine Sodium (Synthroid -) 50 mcg PO DAILY@0700 [facility] Last Admin: 09/24/18 06:43 Dose: 50 mcg Loratadine (Claritin -) 10 mg PO HS [facility] Last Admin: 09/23/18 22:41 Dose: 10 mg Methylnaltrexone [place] (Relistor -) 12 mg SQ DAILY [facility] Last Admin: 09/23/18 13:20 Dose: 12 mg Montelukast Sodium (Singulair -) 10 mg PO HS [facility] Last Admin: 09/23/18 22:41 Dose: 10 mg Non-Formulary Medication (Mirabegron [Myrbetriq]) 50 mg PO DAILY [facility] Non-Formulary Medication (Vortioxetine Hydrobromide [Trintellix]) 20 mg PO DAILY [facility] Olanzapine (Zyprexa -) 5 mg PO BID [facility] Last Admin: 09/23/18 22:41 Dose: 5 mg Ondansetron HCl (Zofran Injection) 4 mg IVPUSH Q6H PRN PRN Reason: NAUSEA AND/OR VOMITING Last Admin: 09/22/18 21:55 Dose: 4 mg Ranitidine HCl (Zantac -) 300 mg PO DAILY [facility] Last Admin: 09/23/18 10:55 Dose: 300 mg Rosuvastatin Calcium (Crestor -) 10 mg PO HS [facility] Last Admin: 09/23/18 22:41 Dose: 10 mg Topiramate (Topamax -) 100 mg PO DAILY [facility] Last Admin: 09/23/18 10:56 Dose: 100 mg Venlafaxine HCl (Effexor Xr -) 75 mg PO DAILY@0800 [facility] Last Admin: 09/24/18 07:58 Dose: 75 mg Zolpidem Tartrate (Ambien -) 10 mg PO HS PRN PRN Reason: INSOMNIA Last Admin: 09/23/18 22:44 Dose: 10 mg - Objective Vital Signs: Vital Signs Temperature 102.8 F H 09/24/18 06:00 Pulse Rate 144 H 09/24/18 06:00 Respiratory Rate 18 09/24/18 06:00 Blood Pressure 112/76 09/24/18 06:00 O2 Sat by Pulse Oximetry (%) 98 09/21/18 17:50 Constitutional: Yes: Other Eyes: Yes: Other HENT: Yes: WNL Neck: Yes: Other Cardiovascular: Yes: WNL Respiratory: Yes: Poor Air Entry, Other (TRACHEOSTOMY) Gastrointestinal: Yes: Abdomen, Obese Genitourinary: Yes: Incontinence Musculoskeletal: Yes: Muscle Weakness Extremities: Yes: Other Edema: No Integumentary: Yes: Other Neurological: Yes: Pre-Existing Deficit ...Motor Strength: LLE, RLE Psychiatric: Yes: Other Labs: CBC, BMP 09/23/18 07:00 Problem List - Problems (1) Elevated lactic acid level Code(s): R79.89 - OTHER SPECIFIED ABNORMAL FINDINGS OF BLOOD CHEMISTRY (2) Sepsis Code(s): A41.9 - SEPSIS, UNSPECIFIED ORGANISM (3) UTI (urinary tract infection) Code(s): N39.0 - URINARY TRACT INFECTION, SITE NOT SPECIFIED (4) Abdominal pain Code(s): R10.9 - UNSPECIFIED ABDOMINAL PAIN (5) Acute and chronic respiratory failure with hypoxia Code(s): J96.21 - ACUTE AND CHRONIC RESPIRATORY FAILURE WITH HYPOXIA (6) Anemia Code(s): D64.9 - ANEMIA, UNSPECIFIED (7) Chronic respiratory failure Code(s): J96.10 - CHRONIC RESPIRATORY FAILURE, UNSP W HYPOXIA OR HYPERCAPNIA (8) Diabetes Code(s): E11.9 - TYPE 2 DIABETES MELLITUS WITHOUT COMPLICATIONS (9) Hypothyroid Code(s): E03.9 - HYPOTHYROIDISM, UNSPECIFIED Qualifiers: Hypothyroidism type: unspecified Qualified Code(s): E03.9 - Hypothyroidism , unspecified (10) Anxiety Code(s): F41.9 - ANXIETY DISORDER, UNSPECIFIED (11) Bipolar 2 disorder Code(s): F31.81 - BIPOLAR II DISORDER (12) COPD (chronic obstructive pulmonary disease) Code(s): J44.9 - CHRONIC OBSTRUCTIVE PULMONARY DISEASE, UNSPECIFIED Qualifiers: COPD type: unspecified COPD Qualified Code(s): J44.9 - Chronic obstructive pulmonary disease, unspecified (13) Depression with anxiety Code(s): F41.8 - OTHER SPECIFIED ANXIETY DISORDERS (14) Diabetes mellitus, insulin dependent (IDDM), uncontrolled Code(s): E10.65 - TYPE 1 DIABETES MELLITUS WITH HYPERGLYCEMIA (15) Neuropathy Code(s): G62.9 - POLYNEUROPATHY, UNSPECIFIED (16) Paroxysmal atrial fibrillation Code(s): I48.0 - PAROXYSMAL ATRIAL FIBRILLATION Assessment/Plan FEVER 102.8 CANCEL DISCHARGE TO SNF IV STEROIDS 02 SUPPORT ON IV ABX WILL NEED PICC LINE WITH 3 WEEKS TX PSYCHIATRY/NEUO EVAL NO ACUTE CNC CHANGES DVT PROPHYLAXIS CHECK LABS O2 SUPPORT SNF WHEN CLEARED BY ID
[2018-09-24 08:44] LABS: ALK PHOS 175 U/L (45-117); ANION GAP 9 MMOL/L (8-16); BILIRUBIN,TOTAL 0.4 mg/dL (0.2-1); BLOOD UREA NITROGEN 9 mg/dL (7-18); CALCIUM 8.3 mg/dL (8.5-10.1); CHLORIDE 105 mmol/L (98-107); CO2 26 mmol/L (21-32); GLUCOSE,RANDOM 172 mg/dL (74-106); POTASSIUM 4.6 mmol/L (3.5-5.1); SGOT/AST 39 U/L (15-37); SGPT/ALT 18 U/L (13-61); SODIUM 140 mmol/L (136-145); TOT PROT 5.9 g/dl (6.4-8.2)
--- NOTE | 2018-09-24 09:11 | PN ---
Progress Note (short form) - Note Progress Note: Neurology History of Present Illness: 52 y/o woman who presented to the ED with complaints of N/V/D x 2 days now resolved, but reported having a decreased appetite and generalized malaise. Patient reported that she had stomach flu-like symptoms as well. Patient denies fever, dizziness, COX, CP, dysuria. I was consulted because of tremor that was reported and in speaking with nurse, the patient has underlying anxiety and restlessness. She can be irritable and aggitated, this AM was calm and cooperative for me again. Did complete CT head which did not show acute changes. Is being treated for UTI which can precipitate tremor. Also with underlying neuropathy. Is on xanax, will not add further medication. Tremor improved with ongoing treatment of UTI. Neurologically stable this AM. Active Medications Acetaminophen (Tylenol -) 650 mg PO Q6H PRN PRN Reason: PAIN LEVEL 1-5 OR FEVER Last Admin: 09/21/18 09:31 Dose: 650 mg Albuterol Sulfate (Ventolin 0.083% Nebulizer Soln -) 1 amp NEB Q4H PRN PRN Reason: SHORT OF BREATH/WHEEZING Albuterol/Ipratropium (Duoneb -) 1 amp NEB RQID [facility] Last Admin: 09/24/18 07:53 Dose: 1 amp Alprazolam (Xanax -) 0.25 mg PO Q8H PRN PRN Reason: ANXIETY Last Admin: 09/24/18 06:53 Dose: 0.25 mg Apixaban (Eliquis -) 5 mg PO BID [facility] Last Admin: 09/23/18 22:41 Dose: 5 mg Baclofen (Lioresal -) 20 mg PO TID [facility] Last Admin: 09/24/18 06:43 Dose: 20 mg Diltiazem HCl (Cardizem Cd -) 240 mg PO BID [facility] Last Admin: 09/23/18 22:38 Dose: 240 mg Doxepin HCl (Sinequan -) 25 mg PO DAILY [facility] Last Admin: 09/23/18 10:55 Dose: 25 mg Gabapentin 300 mg/ Gabapentin (200 mg) 500 mg PO TID [facility] Last Admin: 09/24/18 06:43 Dose: 500 mg Hydromorphone HCl (Dilaudid -) 4 mg PO Q8H PRN PRN Reason: PAIN LEVEL 6-10 Last Admin: 09/24/18 06:53 Dose: 4 mg IV Flush (Picc Line Flush) 8 ml IVPUSH PRN PRN PRN Reason: Protocol Vancomycin HCl (Vancomycin (Pre-Docked)) 1,000 mg in 250 mls @ 166.667 mls/hr IVPB BID@0100,1300 [facility]; Protocol Last Admin: 09/24/18 00:10 Dose: 166.667 mls/hr Ceftriaxone Sodium 2 gm/ (Dextrose) 100 mls @ 200 mls/hr IVPB DAILY [facility]; Protocol Last Admin: 09/23/18 10:52 Dose: 200 mls/hr Insulin Aspart (Novolog Vial Sliding Scale -) 1 vial SQ ACHS [facility]; Protocol Last Admin: 09/24/18 06:43 Dose: Not Given Insulin Detemir (Levemir Vial) 35 units SQ BID@0700,2200 [facility] Last Admin: 09/24/18 06:45 Dose: 35 units Levothyroxine Sodium (Synthroid -) 50 mcg PO DAILY@0700 [facility] Last Admin: 09/24/18 06:43 Dose: 50 mcg Loratadine (Claritin -) 10 mg PO [facility] Last Admin: 09/23/18 22:41 Dose: 10 mg Methylnaltrexone [place] (Relistor -) 12 mg SQ DAILY [facility] Last Admin: 09/23/18 13:20 Dose: 12 mg Montelukast Sodium (Singulair -) 10 mg PO [facility] Last Admin: 09/23/18 22:41 Dose: 10 mg Non-Formulary Medication (Mirabegron [Myrbetriq]) 50 mg PO DAILY [facility] Non-Formulary Medication (Vortioxetine Hydrobromide [Trintellix]) 20 mg PO DAILY [facility] Olanzapine (Zyprexa -) 5 mg PO BID [facility] Last Admin: 09/23/18 22:41 Dose: 5 mg Ondansetron HCl (Zofran Injection) 4 mg IVPUSH Q6H PRN PRN Reason: NAUSEA AND/OR VOMITING Last Admin: 09/22/18 21:55 Dose: 4 mg Ranitidine HCl (Zantac -) 300 mg PO DAILY [facility] Last Admin: 09/23/18 10:55 Dose: 300 mg Rosuvastatin Calcium (Crestor -) 10 mg PO [facility] Last Admin: 09/23/18 22:41 Dose: 10 mg Topiramate (Topamax -) 100 mg PO DAILY [facility] Last Admin: 09/23/18 10:56 Dose: 100 mg Venlafaxine HCl (Effexor Xr -) 75 mg PO DAILY@0800 [facility] Last Admin: 09/24/18 07:58 Dose: 75 mg Zolpidem Tartrate (Ambien -) 10 mg PO HS PRN PRN Reason: INSOMNIA Last Admin: 09/23/18 22:44 Dose: 10 mg Physical Examination Vital Signs: Vital Signs Period Temp Pulse Resp BP Sys/Dan Pulse Ox Last 24 Hr 97.7 F-102.8 F 90-144 18-24 110-135/70-88 Constitutional: Yes: No Distress, Calm, Obese Eyes: Yes: WNL, Conjunctiva Clear, EOM Intact, PERRL HENT: Yes: WNL, Atraumatic, Normocephalic Neck: Yes: Supple, Other (trach with collar) Cardiovascular: Yes: Pulse Irregular, S1, S2 Respiratory: Yes: Wheezes (bases), Other (trach with collar) Gastrointestinal: Yes: Normal Bowel Sounds, Soft, Abdomen, Obese, Tenderness ( LMQ) Renal/: Yes: WNL Breast(s): Yes: WNL Musculoskeletal: Yes: WNL Extremities: Yes: WNL Edema: No Peripheral Pulses WNL: Yes Integumentary: Yes: Tattoos Neurological: Yes: WNL, Alert, Oriented, Cran Nerves II-XII Intact, moves all extremities, no tremor noted, finger to nose intact CBCD WBC 11.0 K/mm3 (4.0-10.0) H 09/23/18 07:00 RBC 4.26 M/mm3 (3.60-5.2) 09/23/18 07:00 Hgb 9.2 GM/dL (10.7-15.3) L 09/23/18 07:00 Hct 31.9 % (32.4-45.2) L 09/23/18 07:00 MCV 74.8 fl (80-96) L 09/23/18 07:00 MCHC 28.8 g/dl (32.0-36.0) L 09/23/18 07:00 RDW 20.8 % (11.6-15.6) H 09/23/18 07:00 Plt Count 322 K/MM3 (134-434) 09/23/18 07:00 MPV 9.6 fl (7.5-11.1) 09/23/18 07:00 CMP Sodium 140 mmol/L (136-145) 09/24/18 06:30 Potassium 4.6 mmol/L (3.5-5.1) 09/24/18 06:30 Chloride 105 mmol/L (98-107) 09/24/18 06:30 Carbon Dioxide 26 mmol/L (21-32) 09/24/18 06:30 Anion Gap 9 MMOL/L (8-16) 09/24/18 06:30 BUN 9 mg/dL (7-18) 09/24/18 06:30 Creatinine 1.0 mg/dL (0.55-1.3) 09/24/18 06:30 Creat Clearance w eGFR 58.69 (>60) 09/24/18 06:30 Random Glucose 172 mg/dL (74-106) H 09/24/18 06:30 Calcium 8.3 mg/dL (8.5-10.1) L 09/24/18 06:30 Total Bilirubin 0.4 mg/dL (0.2-1) 09/24/18 06:30 AST 39 U/L (15-37) H 09/24/18 06:30 ALT 18 U/L (13-61) 09/24/18 06:30 Alkaline Phosphatase 175 U/L (45-117) H 09/24/18 06:30 Total Protein 5.9 g/dl (6.4-8.2) L 09/24/18 06:30 Albumin 2.0 g/dl (3.4-5.0) L 09/24/18 06:[address] head reviewed Plan 52 y/o woman who presented to the ED with complaints of N/V/D x 2 days now resolved, but reported having a decreased appetite and generalized malaise. Patient reported that she had stomach flu-like symptoms as well. Patient denies fever, dizziness, COX, CP, dysuria. I was consulted because of tremor that was reported and in speaking with nurse, the patient has underlying anxiety and restlessness. She can be irritable and aggitated, this AM was calm and cooperative for me. Did complete CT head which did not show acute changes. Is being treated for UTI which can precipitate tremor. Also with underlying neuropathy. Recommend continued Tx for UTI, Abx as needed. Maintain adequate hydration. Can continue anxiolytic which would help with tremor. Consider muscle relaxant, low dose if needed, but would continue medical mgmt for now, tremor has been stable. Has hypothyroid, monitor TSH and thyroid levels, as hyperthyroid can precipitate this as well. Monitor glucose, maintain normal range. Avoid hypo/hyperglycemia.
[2018-09-24 09:50] LABS: BASO % 0.7 % (0-2.0); EOS % 2.2 % (0-4.5); HEMOGLOBIN 8.7 GM/dL (10.7-15.3); LYMPH % 11.9 % (8-40); MCHC 27.9 g/dl (32.0-36.0); MEAN CELL VOLUME 75.3 fl (80-96); MEAN PLT VOLUME 9.9 fl (7.5-11.1); MONO % 13.7 % (3.8-10.2); NEUT % 71.5 % (42.8-82.8); PLATELET COUNT 313 K/MM3 (134-434); RBC 4.12 M/mm3 (3.60-5.2); RDW 21.3 % (11.6-15.6); WHITE BLOOD COUNT 11.6 K/mm3 (4.0-10.0)
[2018-09-24] MEDS ORDERED: DEXTROSE 5%-WATER 100 ML IVPB ONE (10:14)
[2018-09-24] MEDS: APIXABAN 5 MG TABLET PO SCH ×2 (10:24→22:02)
[2018-09-24] MEDS: RANITIDINE HCL 150 MG TABLET (FP) PO SCH (10:25)
[2018-09-24] MEDS: TOPIRAMATE 100 MG TABLET PO SCH (10:25)
[2018-09-24] MEDS: CEFTRIAXONE 2 GM in DEXTROSE 5%-WATER 100 ML IVPB SCH (10:25)
[2018-09-24] MEDS: DOXEPIN HCL 25 MG CAPSULE PO SCH (10:25)
[2018-09-24] MEDS: OLANZapine 5 MG TABLET PO SCH ×2 (10:26→22:02)
[2018-09-24] MEDS: Methylnaltrexone Bromide 12 MG/0.6 ML KIT SQ SCH (11:35)
[2018-09-24] MEDS ORDERED: SODIUM CHLORIDE 500 ML IV STA (12:05)
[2018-09-24 13:00] LABS: ARTERIAL BLD GAS O2 SATURATION 92.3 % (90-98.9); ARTERIAL BLOOD GAS PCO2 49.8 mmHg (35-45); ARTERIAL BLOOD GAS PO2 78.7 mmHg (80-100); ARTERIAL BLOOD GAS pH 7.32 (7.35-7.45)
--- NOTE | 2018-09-24 15:55 | ECHO ---
Name: JASWINDER CORTES Exam:Adult Echocardiogram Study Date: 09/24/2018 02:04 PM Age: 52 yrs Reason For Study: +BLOOD C/S MRSA Height: 59 in Weight: 161 lb BSA: 1.7 m2 MMode/2D Measurements & Calculations IVSd: 0.76 cm EDV(Teich): 55.8 ml LVIDd: 3.6 cm ESV(Teich): 23.6 ml LVIDs: 2.6 cm LVPWd: 0.79 cm Doppler Measurements & Calculations MV E max en: 41.0 cm/sec Ao V2 max: 118.1 cm/sec MV A max en: 85.4 cm/sec Ao max P.6 mmHg MV E/A: 0.48 LV V1 max P.5 mmHg Med Peak E' En: 8.7 cm/sec LV V1 max: 105.6 cm/sec Med E/e': 4.7 Lat Peak E' En: 6.7 cm/sec Lat E/e': 6.1 Procedure The study was technically difficult with many images being suboptimal in quality. Left Ventricle Left ventricular systolic function is grossly normal. Ejection Fraction = 50%. The transmitral spectr al Doppler flow pattern is suggestive of impaired LV relaxation. Right Ventricle The right ventricle is grossly normal size. The right ventricular systolic function is grossly normal . Atria Normal left and right atrial size and function. Mitral Valve The mitral valve is normal in structure and function. There is no mitral valve stenosis. There is tra ce mitral regurgitation. Tricuspid Valve The tricuspid valve is normal in structure and function. There is trace tricuspid regurgitation. Aortic Valve The aortic valve opens well. There is mild aortic sclerosis.;. No hemodynamically significant valvula r aortic stenosis. Pulmonic Valve The pulmonic valve is not well seen, but is grossly normal. There is no pulmonic valvular stenosis. Great Vessels The aortic root is normal size. Pericardium/Pleura There is no pericardial effusion. Interpretation Summary The study was technically difficult with many images being suboptimal in quality. Left ventricular systolic function is grossly normal. Ejection Fraction = 50%. There is mild aortic sclerosis.; The aortic valve opens well. There is no pericardial effusion. MD Aguilar *Peter 09/24/2018 03:55 PM
--- NOTE | 2018-09-24 16:06 | PN ---
Progress Note (short form) - Note Progress Note: PULMONARY FEBRILE EARLIER NOW AFEBRILE RESTING COMFORTABLY TRACH WITH O2 COLLAR IN PLACE PALE/ANICTERIC B/L END EXP WHEEZE(BASELINE) S1S2 TACHY BS+ SOFT NON-TENDER 1+EDEMA LABS/MEDS/NOTES/IMAGES/MICRO REVIEWED SPOKE WITH NURSE BOLUS OF 500CC FLUID GIVEN EARLIER UTI Chronic Hypoxic and Hypercapneic Respiratory Failure Asthma/COPD HTN Paroxysmal Atrial Fibrillation DM Hypothyroidism Chronic Pain Toxic Metabolic Encephalopathy - Antibiotics per ID - inhaled bronchodilators standing and PRN - O2 to keep Spo2 >90% - rate controlled - continue anticoagulation - Trach collar O2 - will follow Sreedhar SEXTON MD
--- NOTE | 2018-09-24 19:23 | PN ---
Progress Note, Physician Chief Complaint: Temp elevation noted 102,8 WBC elevated Awake and alert + oral secretions reported - Current Medication List Current Medications: Active Medications Acetaminophen (Tylenol -) 650 mg PO Q6H PRN PRN Reason: PAIN LEVEL 1-5 OR FEVER Last Admin: 09/21/18 09:31 Dose: 650 mg Albuterol Sulfate (Ventolin 0.083% Nebulizer Soln -) 1 amp NEB Q4H PRN PRN Reason: SHORT OF BREATH/WHEEZING Albuterol/Ipratropium (Duoneb -) 1 amp NEB RQID [facility] Last Admin: 09/24/18 17:03 Dose: 1 amp Alprazolam (Xanax -) 0.25 mg PO Q8H PRN PRN Reason: ANXIETY Last Admin: 09/24/18 06:53 Dose: 0.25 mg Apixaban (Eliquis -) 5 mg PO BID [facility] Last Admin: 09/24/18 10:24 Dose: 5 mg Baclofen (Lioresal -) 20 mg PO TID [facility] Last Admin: 09/24/18 13:50 Dose: Not Given Diltiazem HCl (Cardizem Cd -) 240 mg PO BID [facility] Last Admin: 09/24/18 10:30 Dose: Not Given Doxepin HCl (Sinequan -) 25 mg PO DAILY [facility] Last Admin: 09/24/18 10:25 Dose: 25 mg Gabapentin 300 mg/ Gabapentin (200 mg) 500 mg PO TID [facility] Last Admin: 09/24/18 13:50 Dose: Not Given Hydromorphone HCl (Dilaudid -) 4 mg PO Q8H PRN PRN Reason: PAIN LEVEL 6-10 Last Admin: 09/24/18 06:53 Dose: 4 mg IV Flush (Picc Line Flush) 8 ml IVPUSH PRN PRN PRN Reason: Protocol Vancomycin HCl (Vancomycin (Pre-Docked)) 1,000 mg in 250 mls @ 166.667 mls/hr IVPB BID@0100,1300 [facility]; Protocol Last Admin: 09/24/18 14:38 Dose: 166.667 mls/hr Ceftriaxone Sodium 2 gm/ (Dextrose) 100 mls @ 200 mls/hr IVPB DAILY [facility]; Protocol Last Admin: 09/24/18 10:25 Dose: 200 mls/hr Insulin Aspart (Novolog Vial Sliding Scale -) 1 vial SQ [facility]; Protocol Last Admin: 09/24/18 17:29 Dose: 5 units Insulin Detemir (Levemir Vial) 35 units SQ BID@0700,2200 [facility] Last Admin: 09/24/18 06:45 Dose: 35 units Levothyroxine Sodium (Synthroid -) 50 mcg PO DAILY@0700 [facility] Last Admin: 09/24/18 06:43 Dose: 50 mcg Loratadine (Claritin -) 10 mg PO [facility] Last Admin: 09/23/18 22:41 Dose: 10 mg Methylnaltrexone [place] (Relistor -) 12 mg SQ DAILY [facility] Last Admin: 09/24/18 11:35 Dose: 12 mg Montelukast Sodium (Singulair -) 10 mg PO [facility] Last Admin: 09/23/18 22:41 Dose: 10 mg Non-Formulary Medication (Mirabegron [Myrbetriq]) 50 mg PO DAILY [facility] Non-Formulary Medication (Vortioxetine Hydrobromide [Trintellix]) 20 mg PO DAILY [facility] Olanzapine (Zyprexa -) 5 mg PO BID [facility] Last Admin: 09/24/18 10:26 Dose: 5 mg Ondansetron HCl (Zofran Injection) 4 mg IVPUSH Q6H PRN PRN Reason: NAUSEA AND/OR VOMITING Last Admin: 09/22/18 21:55 Dose: 4 mg Ranitidine HCl (Zantac -) 300 mg PO DAILY [facility] Last Admin: 09/24/18 10:25 Dose: 300 mg Rosuvastatin Calcium (Crestor -) 10 mg PO [facility] Last Admin: 09/23/18 22:41 Dose: 10 mg Topiramate (Topamax -) 100 mg PO DAILY [facility] Last Admin: 09/24/18 10:25 Dose: 100 mg Venlafaxine HCl (Effexor Xr -) 75 mg PO DAILY@0800 [facility] Last Admin: 09/24/18 07:58 Dose: 75 mg - Objective Vital Signs: Vital Signs Temperature 98.4 F 09/24/18 15:00 Pulse Rate 96 H 09/24/18 15:00 Respiratory Rate 16 09/24/18 15:00 Blood Pressure 107/78 09/24/18 15:00 O2 Sat by Pulse Oximetry (%) 99 09/24/18 12:41 Constitutional: Yes: No Distress, Obese Cardiovascular: Yes: Regular Rate and Rhythm, S1, S2 Respiratory: Yes: Diminished Gastrointestinal: Yes: Normal Bowel Sounds, Soft. No: Tenderness Edema: No Labs: CBC, BMP 09/24/18 07:00 09/24/18 06:30 Assessment/Plan MRSA bacteremia Temp spike ? aspiration CXR no new infiltrate ? toxic metabolic encehalopathy improved Exacerbation COPD Repeat BC Continue vancomycin. Echo PICC for outpatient vancomycin 1gm q12h x 3w
[2018-09-24] MEDS: MONTELUKAST NA 10 MG TABLET PO SCH (22:02)
[2018-09-24] MEDS: LORATADINE 10 MG TABLET PO SCH (22:02)
[2018-09-24] MEDS: ROSUVASTATIN CA 10 MG TABLET (FP) PO SCH (22:05)
[2018-09-25] MEDS: INSULIN (LEVEMIR) 100 UNITS/ML UNITS SQ SCH ×3 (00:24→22:27)
[2018-09-25] MEDS ORDERED: PT OWN MED DRAWER 7, Y5N ONE ×4 (00:31→23:24)
[2018-09-25] MEDS: VANCOMYCIN 1 GRAM (PRE-DOCKED) 1,000 MG/250 ML BAG IVPB SCH ×2 (00:53→15:40)
[2018-09-25] MEDS ORDERED: GABAPENTIN 300 MG CAPSULE (FP) ONE ×2 (05:45→21:43)
[2018-09-25] MEDS ORDERED: GABAPENTIN 100 MG CAPSULE (FP) ONE ×2 (05:45→21:43)
[2018-09-25] MEDS: INSULIN SLIDING SCALE (NOVOLOG) 1 VIAL SQ SCH ×4 (06:25→22:24)
[2018-09-25] MEDS: LEVOTHYROXINE NA 50 MCG TABLET (FP) PO SCH (07:05)
[2018-09-25] MEDS: BACLOFEN 10 MG TABLET (FP) PO SCH ×3 (07:06→21:53)
[2018-09-25] MEDS: GABAPENTIN 300 MG, GABAPENTIN 200 MG PO SCH ×3 (07:06→21:52)
[2018-09-25] MEDS: ALBUTEROL SO4 2.5/IPRATROPIUM 0.5 INH SOL 3 ML VIAL.NEB. NEB SCH ×4 (07:35→20:35)
[2018-09-25] MEDS ORDERED: DEXTROSE 5%-WATER 100 ML IVPB ONE (10:15)
[2018-09-25] MEDS: RANITIDINE HCL 150 MG TABLET (FP) PO SCH (10:22)
[2018-09-25] MEDS: CEFTRIAXONE 2 GM in DEXTROSE 5%-WATER 100 ML IVPB SCH (10:22)
[2018-09-25] MEDS: APIXABAN 5 MG TABLET PO SCH ×2 (10:22→21:56)
[2018-09-25] MEDS: VENLAFAXINE HCL 75 MG E.R. CAPSULES (FP) PO SCH (10:23)
[2018-09-25] MEDS: DOXEPIN HCL 25 MG CAPSULE PO SCH (10:23)
[2018-09-25] MEDS: TOPIRAMATE 100 MG TABLET PO SCH (10:23)
[2018-09-25] MEDS: OLANZapine 5 MG TABLET PO SCH ×2 (10:23→23:28)
[2018-09-25] MEDS: Methylnaltrexone Bromide 12 MG/0.6 ML KIT SQ SCH (10:24)
--- NOTE | 2018-09-25 11:25 | PN ---
Progress Note, Physician - Current Medication List Current Medications: Active Medications Acetaminophen (Tylenol -) 650 mg PO Q6H PRN PRN Reason: PAIN LEVEL 1-5 OR FEVER Last Admin: 09/21/18 09:31 Dose: 650 mg Albuterol Sulfate (Ventolin 0.083% Nebulizer Soln -) 1 amp NEB Q4H PRN PRN Reason: SHORT OF BREATH/WHEEZING Albuterol/Ipratropium (Duoneb -) 1 amp NEB RQID [facility] Last Admin: 09/25/18 07:35 Dose: 1 amp Alprazolam (Xanax -) 0.25 mg PO Q8H PRN PRN Reason: ANXIETY Last Admin: 09/24/18 22:05 Dose: 0.25 mg Apixaban (Eliquis -) 5 mg PO BID [facility] Last Admin: 09/25/18 10:22 Dose: 5 mg Baclofen (Lioresal -) 20 mg PO TID [facility] Last Admin: 09/25/18 07:06 Dose: 20 mg Diltiazem HCl (Cardizem Cd -) 240 mg PO BID [facility] Last Admin: 09/25/18 10:22 Dose: 240 mg Doxepin HCl (Sinequan -) 25 mg PO DAILY [facility] Last Admin: 09/25/18 10:23 Dose: 25 mg Gabapentin 300 mg/ Gabapentin (200 mg) 500 mg PO TID [facility] Last Admin: 09/25/18 07:06 Dose: 500 mg Hydromorphone HCl (Dilaudid -) 4 mg PO Q8H PRN PRN Reason: PAIN LEVEL 6-10 Last Admin: 09/25/18 10:21 Dose: 4 mg IV Flush (Picc Line Flush) 8 ml IVPUSH PRN PRN PRN Reason: Protocol Vancomycin HCl (Vancomycin (Pre-Docked)) 1,000 mg in 250 mls @ 166.667 mls/hr IVPB BID@0100,1300 [facility]; Protocol Last Admin: 09/25/18 00:53 Dose: 166.667 mls/hr Ceftriaxone Sodium 2 gm/ (Dextrose) 100 mls @ 200 mls/hr IVPB DAILY [facility]; Protocol Last Admin: 09/25/18 10:22 Dose: 200 mls/hr Insulin Aspart (Novolog Vial Sliding Scale -) 1 vial SQ ACHS [facility]; Protocol Last Admin: 09/25/18 06:25 Dose: Not Given Insulin Detemir (Levemir Vial) 35 units SQ BID@0700,2200 [facility] Last Admin: 09/25/18 07:10 Dose: 35 units Levothyroxine Sodium (Synthroid -) 50 mcg PO DAILY@0700 [facility] Last Admin: 09/25/18 07:05 Dose: 50 mcg Loratadine (Claritin -) 10 mg PO HS [facility] Last Admin: 09/24/18 22:02 Dose: 10 mg Methylnaltrexone [place] (Relistor -) 12 mg SQ DAILY [facility] Last Admin: 09/25/18 10:24 Dose: Not Given Montelukast Sodium (Singulair -) 10 mg PO HS [facility] Last Admin: 09/24/18 22:02 Dose: 10 mg Non-Formulary Medication (Mirabegron [Myrbetriq]) 50 mg PO DAILY [facility] Non-Formulary Medication (Vortioxetine Hydrobromide [Trintellix]) 20 mg PO DAILY [facility] Olanzapine (Zyprexa -) 5 mg PO BID [facility] Last Admin: 09/25/18 10:23 Dose: 5 mg Ondansetron HCl (Zofran Injection) 4 mg IVPUSH Q6H PRN PRN Reason: NAUSEA AND/OR VOMITING Last Admin: 09/22/18 21:55 Dose: 4 mg Ranitidine HCl (Zantac -) 300 mg PO DAILY [facility] Last Admin: 09/25/18 10:22 Dose: 300 mg Rosuvastatin Calcium (Crestor -) 10 mg PO HS [facility] Last Admin: 09/24/18 22:05 Dose: 10 mg Topiramate (Topamax -) 100 mg PO DAILY [facility] Last Admin: 09/25/18 10:23 Dose: 100 mg Venlafaxine HCl (Effexor Xr -) 75 mg PO DAILY@0800 [facility] Last Admin: 09/25/18 10:23 Dose: 75 mg - Objective Vital Signs: Vital Signs Temperature 99.6 F 09/25/18 08:07 Pulse Rate 116 H 09/25/18 08:07 Respiratory Rate 22 H 09/25/18 08:07 Blood Pressure 118/71 09/25/18 08:07 O2 Sat by Pulse Oximetry (%) 99 09/24/18 12:41 Cardiovascular: Yes: S1, S2 Respiratory: Yes: Diminished Gastrointestinal: Yes: Normal Bowel Sounds, Soft Labs: CBC, BMP 09/24/18 07:00 09/24/18 06:30 Problem List - Problems (1) Fever Assessment/Plan: -ABX PER ID Microbiology 09/21/18 06:15 Blood - Peripheral Venous Blood Culture - Preliminary NO GROWTH OBTAINED AFTER 96 HOURS, INCUBATION TO CONTINUE FOR 1 DAYS. 09/21/18 06:41 Blood - Peripheral Venous Blood Culture - Preliminary NO GROWTH OBTAINED AFTER 96 HOURS, INCUBATION TO CONTINUE FOR 1 DAYS. 09/21/18 04:00 Urine - Urine Clean Catch Urine Culture - Final NO GROWTH OBTAINED 09/21/18 04:00 Urine For Antigen Detection Legionella Antigen - Final 09/21/18 04:00 Urine For Antigen Detection Streptococcus pneumoniae Antigen (M - Final 09/18/18 17:20 Blood - Peripheral Venous Blood Culture - Final Mr S Aureus 09/18/18 17:20 Blood - Peripheral Venous Blood Culture - Final Mr S Aureus 09/18/18 18:00 Urine - Urine Clean Catch Urine Culture - Final Contaminated: Please Repeat 09/19/18 03:22 Nasopharyngeal Swab Influenza Types A,B Antigen - Final 09/19/18 03:22 Nasopharyngeal Swab - Final Code(s): R50.9 - FEVER, UNSPECIFIED (2) Diabetes Assessment/Plan: -BGM Code(s): E11.9 - TYPE 2 DIABETES MELLITUS WITHOUT COMPLICATIONS (3) COPD (chronic obstructive pulmonary disease) Assessment/Plan: -NEBS PULM ON CASE Code(s): J44.9 - CHRONIC OBSTRUCTIVE PULMONARY DISEASE, UNSPECIFIED Qualifiers: COPD type: unspecified COPD Qualified Code(s): J44.9 - Chronic obstructive pulmonary disease, unspecified
--- NOTE | 2018-09-25 12:33 | PN ---
Progress Note (short form) - Note Progress Note: PULMONARY FEBRILE EARLIER NOW AFEBRILE RESTING COMFORTABLY TRACH WITH O2 COLLAR IN PLACE PALE/ANICTERIC B/L END EXP WHEEZE(BASELINE) S1S2 TACHY BS+ SOFT NON-TENDER 1+EDEMA LABS/MEDS/NOTES/IMAGES/MICRO REVIEWED UTI MRSA bacteremia Chronic Hypoxic and Hypercapneic Respiratory Failure Asthma/COPD HTN Paroxysmal Atrial Fibrillation DM Hypothyroidism Chronic Pain Toxic Metabolic Encephalopathy - Antibiotics per ID - inhaled bronchodilators standing and PRN - O2 to keep Spo2 >90% - rate controlled - continue anticoagulation - Trach collar O2 - will follow Sreedhar SEXTON MD
--- NOTE | 2018-09-25 13:56 | PN ---
Progress Note (short form) - Note Progress Note: blood cultures sent this am for recurrent fever 09/24 Vital Signs Period Temp Pulse Resp BP Sys/Dan Pulse Ox Last 24 Hr 98.4 F-99.6 F 96-125 16-24 107-130/59-78 +trach cor-tachycardic lungs decreased bs at bases abd soft,nt ext no edema CBC, BMP 09/24/18 07:00 09/24/18 06:30 Microbiology 09/21/18 06:15 Blood - Peripheral Venous Blood Culture - Preliminary NO GROWTH OBTAINED AFTER 96 HOURS, INCUBATION TO CONTINUE FOR 1 DAYS. 09/21/18 06:41 Blood - Peripheral Venous Blood Culture - Preliminary NO GROWTH OBTAINED AFTER 96 HOURS, INCUBATION TO CONTINUE FOR 1 DAYS. 09/21/18 04:00 Urine - Urine Clean Catch Urine Culture - Final NO GROWTH OBTAINED 09/21/18 04:00 Urine For Antigen Detection Legionella Antigen - Final 09/21/18 04:00 Urine For Antigen Detection Streptococcus pneumoniae Antigen (M - Final 09/18/18 17:20 Blood - Peripheral Venous Blood Culture - Final Mr S Aureus 09/18/18 17:20 Blood - Peripheral Venous Blood Culture - Final Mr S Aureus 09/18/18 18:00 Urine - Urine Clean Catch Urine Culture - Final Contaminated: Please Repeat 09/19/18 03:22 Nasopharyngeal Swab Influenza Types A,B Antigen - Final 09/19/18 03:22 Nasopharyngeal Swab - Final Current Medications Acetaminophen (Tylenol -) 650 mg PO Q6H PRN PRN Reason: PAIN LEVEL 1-5 OR FEVER Last Admin: 09/21/18 09:31 Dose: 650 mg Albuterol Sulfate (Ventolin 0.083% Nebulizer Soln -) 1 amp NEB Q4H PRN PRN Reason: SHORT OF BREATH/WHEEZING Albuterol/Ipratropium (Duoneb -) 1 amp NEB RQID [facility] Last Admin: 09/25/18 11:40 Dose: 1 amp Alprazolam (Xanax -) 0.25 mg PO Q8H PRN PRN Reason: ANXIETY Last Admin: 09/24/18 22:05 Dose: 0.25 mg Apixaban (Eliquis -) 5 mg PO BID [facility] Last Admin: 09/25/18 10:22 Dose: 5 mg Baclofen (Lioresal -) 20 mg PO TID [facility] Last Admin: 09/25/18 07:06 Dose: 20 mg Diltiazem HCl (Cardizem Cd -) 240 mg PO BID [facility] Last Admin: 09/25/18 10:22 Dose: 240 mg Doxepin HCl (Sinequan -) 25 mg PO DAILY [facility] Last Admin: 09/25/18 10:23 Dose: 25 mg Gabapentin 300 mg/ Gabapentin (200 mg) 500 mg PO TID [facility] Last Admin: 09/25/18 07:06 Dose: 500 mg Hydromorphone HCl (Dilaudid -) 4 mg PO Q8H PRN PRN Reason: PAIN LEVEL 6-10 Last Admin: 09/25/18 10:21 Dose: 4 mg IV Flush (Picc Line Flush) 8 ml IVPUSH PRN PRN PRN Reason: Protocol Vancomycin HCl (Vancomycin (Pre-Docked)) 1,000 mg in 250 mls @ 166.667 mls/hr IVPB BID@0100,1300 [facility]; Protocol Last Admin: 09/25/18 00:53 Dose: 166.667 mls/hr Ceftriaxone Sodium 2 gm/ (Dextrose) 100 mls @ 200 mls/hr IVPB DAILY [facility]; Protocol Last Admin: 09/25/18 10:22 Dose: 200 mls/hr Insulin Aspart (Novolog Vial Sliding Scale -) 1 vial SQ ACHS [facility]; Protocol Last Admin: 09/25/18 13:31 Dose: 5 units Insulin Detemir (Levemir Vial) 35 units SQ BID@0700,2200 [facility] Last Admin: 09/25/18 07:10 Dose: 35 units Levothyroxine Sodium (Synthroid -) 50 mcg PO DAILY@0700 [facility] Last Admin: 09/25/18 07:05 Dose: 50 mcg Loratadine (Claritin -) 10 mg PO [facility] Last Admin: 09/24/18 22:02 Dose: 10 mg Methylnaltrexone [place] (Relistor -) 12 mg SQ DAILY [facility] Last Admin: 09/25/18 10:24 Dose: Not Given Montelukast Sodium (Singulair -) 10 mg PO [facility] Last Admin: 09/24/18 22:02 Dose: 10 mg Non-Formulary Medication (Mirabegron [Myrbetriq]) 50 mg PO DAILY [facility] Non-Formulary Medication (Vortioxetine Hydrobromide [Trintellix]) 20 mg PO DAILY [facility] Olanzapine (Zyprexa -) 5 mg PO BID [facility] Last Admin: 09/25/18 10:23 Dose: 5 mg Ondansetron HCl (Zofran Injection) 4 mg IVPUSH Q6H PRN PRN Reason: NAUSEA AND/OR VOMITING Last Admin: 09/22/18 21:55 Dose: 4 mg Ranitidine HCl (Zantac -) 300 mg PO DAILY [facility] Last Admin: 09/25/18 10:22 Dose: 300 mg Rosuvastatin Calcium (Crestor -) 10 mg PO HS [facility] Last Admin: 09/24/18 22:05 Dose: 10 mg Topiramate (Topamax -) 100 mg PO DAILY [facility] Last Admin: 09/25/18 10:23 Dose: 100 mg Venlafaxine HCl (Effexor Xr -) 75 mg PO DAILY@0800 [facility] Last Admin: 09/25/18 10:23 Dose: 75 mg a/p MRSA bacteremia continue vancomycin blood cultures repeated day #7 rocephin- will d/c echo-technically difficult recurrent fever- ?source chronic resp failure with trach diabetes
[2018-09-25] MEDS: ROSUVASTATIN CA 10 MG TABLET (FP) PO SCH (21:53)
[2018-09-25] MEDS: MONTELUKAST NA 10 MG TABLET PO SCH (21:53)
[2018-09-25] MEDS: LORATADINE 10 MG TABLET PO SCH (21:54)
[2018-09-25] MEDS: ALPRAZolam 0.25 MG TABLET PO PRN (21:56)
[2018-09-26] MEDS ORDERED: GABAPENTIN 300 MG CAPSULE (FP) ONE ×2 (06:11→20:27)
[2018-09-26] MEDS ORDERED: GABAPENTIN 100 MG CAPSULE (FP) ONE ×2 (06:11→20:26)
[2018-09-26] MEDS: BACLOFEN 10 MG TABLET (FP) PO SCH ×3 (06:43→21:07)
[2018-09-26] MEDS: GABAPENTIN 300 MG, GABAPENTIN 200 MG PO SCH ×3 (06:43→21:07)
[2018-09-26] MEDS: LEVOTHYROXINE NA 50 MCG TABLET (FP) PO SCH (06:44)
[2018-09-26] MEDS: INSULIN (LEVEMIR) 100 UNITS/ML UNITS SQ SCH ×2 (06:49→21:24)
[2018-09-26] MEDS: INSULIN SLIDING SCALE (NOVOLOG) 1 VIAL SQ SCH ×4 (06:51→21:24)
[2018-09-26] MEDS: ALBUTEROL SO4 2.5/IPRATROPIUM 0.5 INH SOL 3 ML VIAL.NEB. NEB SCH ×4 (07:15→20:38)
--- NOTE | 2018-09-26 09:19 | PN ---
Progress Note (short form) - Note Progress Note: much more alert no complaints Vital Signs Period Temp Pulse Resp BP Sys/Dan Pulse Ox Last 24 Hr 98.2 F-98.9 F 120-124 20-21 103-114/70-81 97 +trach cor-rrr lungs clear abd soft,nt ext no edema CBC, BMP 09/24/18 07:00 09/24/18 06:30 Microbiology 09/21/18 06:15 Blood - Peripheral Venous Blood Culture - Final NO GROWTH AFTER 5 DAYS INCUBATION 09/21/18 06:41 Blood - Peripheral Venous Blood Culture - Final NO GROWTH AFTER 5 DAYS INCUBATION 09/21/18 04:00 Urine - Urine Clean Catch Urine Culture - Final NO GROWTH OBTAINED 09/21/18 04:00 Urine For Antigen Detection Legionella Antigen - Final 09/21/18 04:00 Urine For Antigen Detection Streptococcus pneumoniae Antigen (M - Final 09/18/18 17:20 Blood - Peripheral Venous Blood Culture - Final S Aureus 09/18/18 17:20 Blood - Peripheral Venous Blood Culture - Final S Aureus 09/18/18 18:00 Urine - Urine Clean Catch Urine Culture - Final Contaminated: Please Repeat 09/19/18 03:22 Nasopharyngeal Swab Influenza Types A,B Antigen - Final 09/19/18 03:22 Nasopharyngeal Swab - Final Laboratory Tests 09/25/18 09/26/18 12:40 06:40 Random Vancomycin 28.3 H Vancomycin Pre-Dose 45.5 H* a/p MRSA bacteremia continue vancomycin based on level blood cultures repeated vanco on hold due to high level, repeat in am echo-technically difficult recurrent fever- ?source chronic resp failure with trach diabetes
[2018-09-26] MEDS ORDERED: PT OWN MED DRAWER 7, Y5N ONE ×4 (09:56→20:30)
[2018-09-26] MEDS: APIXABAN 5 MG TABLET PO SCH ×2 (10:00→21:07)
[2018-09-26] MEDS: TOPIRAMATE 100 MG TABLET PO SCH (10:01)
[2018-09-26] MEDS: VENLAFAXINE HCL 75 MG E.R. CAPSULES (FP) PO SCH (10:01)
[2018-09-26] MEDS: RANITIDINE HCL 150 MG TABLET (FP) PO SCH (10:01)
[2018-09-26] MEDS: OLANZapine 5 MG TABLET PO SCH ×2 (10:01→21:07)
[2018-09-26] MEDS: DOXEPIN HCL 25 MG CAPSULE PO SCH (10:02)
[2018-09-26] MEDS: Methylnaltrexone Bromide 12 MG/0.6 ML KIT SQ SCH (10:02)
--- NOTE | 2018-09-26 13:27 | PN ---
Progress Note (short form) - Note Progress Note: PULMONARY AFEBRILE RESTING COMFORTABLY TRACH WITH O2 COLLAR IN PLACE PALE/ANICTERIC B/L END EXP WHEEZE(BASELINE) S1S2 TACHY BS+ SOFT NON-TENDER 1+EDEMA LABS/MEDS/NOTES/IMAGES/MICRO REVIEWED UTI MRSA bacteremia Chronic Hypoxic and Hypercapneic Respiratory Failure Asthma/COPD HTN Paroxysmal Atrial Fibrillation DM Hypothyroidism Chronic Pain Toxic Metabolic Encephalopathy - Antibiotics per ID - inhaled bronchodilators standing and PRN - O2 to keep Spo2 >90% - rate controlled - continue anticoagulation - Trach collar O2 - will follow Sreedhar SEXTON MD
--- NOTE | 2018-09-26 13:28 | PN ---
Progress Note, Physician - Current Medication List Current Medications: Active Medications Acetaminophen (Tylenol -) 650 mg PO Q6H PRN PRN Reason: PAIN LEVEL 1-5 OR FEVER Last Admin: 09/21/18 09:31 Dose: 650 mg Albuterol Sulfate (Ventolin 0.083% Nebulizer Soln -) 1 amp NEB Q4H PRN PRN Reason: SHORT OF BREATH/WHEEZING Albuterol/Ipratropium (Duoneb -) 1 amp NEB RQID [facility] Last Admin: 09/26/18 11:02 Dose: 1 amp Alprazolam (Xanax -) 0.25 mg PO Q8H PRN PRN Reason: FOR ANXIETY Apixaban (Eliquis -) 5 mg PO BID [facility] Last Admin: 09/26/18 10:00 Dose: 5 mg Baclofen (Lioresal -) 20 mg PO TID [facility] Last Admin: 09/26/18 06:43 Dose: 20 mg Diltiazem HCl (Cardizem Cd -) 240 mg PO BID [facility] Last Admin: 09/26/18 10:00 Dose: 240 mg Doxepin HCl (Sinequan -) 25 mg PO DAILY [facility] Last Admin: 09/26/18 10:02 Dose: 25 mg Gabapentin 300 mg/ Gabapentin (200 mg) 500 mg PO TID [facility] Last Admin: 09/26/18 06:43 Dose: 500 mg Hydromorphone HCl (Dilaudid -) 4 mg PO Q8H PRN PRN Reason: PAIN LEVEL 6-10 Last Admin: 09/26/18 11:45 Dose: 4 mg IV Flush (Picc Line Flush) 8 ml IVPUSH PRN PRN PRN Reason: Protocol Insulin Aspart (Novolog Vial Sliding Scale -) 1 vial SQ [facility]; Protocol Last Admin: 09/26/18 11:48 Dose: Not Given Insulin Detemir (Levemir Vial) 35 units SQ BID@0700,2200 [facility] Last Admin: 09/26/18 06:49 Dose: 35 units Levothyroxine Sodium (Synthroid -) 50 mcg PO DAILY@0700 [facility] Last Admin: 09/26/18 06:44 Dose: 50 mcg Loratadine (Claritin -) 10 mg PO HS [facility] Last Admin: 09/25/18 21:54 Dose: 10 mg Methylnaltrexone [place] (Relistor -) 12 mg SQ DAILY [facility] Last Admin: 09/26/18 10:02 Dose: Not Given Montelukast Sodium (Singulair -) 10 mg PO [facility] Last Admin: 09/25/18 21:53 Dose: 10 mg Non-Formulary Medication (Mirabegron [Myrbetriq]) 50 mg PO DAILY [facility] Non-Formulary Medication (Vortioxetine Hydrobromide [Trintellix]) 20 mg PO DAILY [facility] Olanzapine (Zyprexa -) 5 mg PO BID [facility] Last Admin: 09/26/18 10:01 Dose: 5 mg Ondansetron HCl (Zofran Injection) 4 mg IVPUSH Q6H PRN PRN Reason: NAUSEA AND/OR VOMITING Last Admin: 09/22/18 21:55 Dose: 4 mg Ranitidine HCl (Zantac -) 300 mg PO DAILY [facility] Last Admin: 09/26/18 10:01 Dose: 300 mg Rosuvastatin Calcium (Crestor -) 10 mg PO [facility] Last Admin: 09/25/18 21:53 Dose: 10 mg Topiramate (Topamax -) 100 mg PO DAILY [facility] Last Admin: 09/26/18 10:01 Dose: 100 mg Venlafaxine HCl (Effexor Xr -) 75 mg PO DAILY@0800 [facility] Last Admin: 09/26/18 10:01 Dose: 75 mg - Objective Vital Signs: Vital Signs Temperature 98.2 F 09/26/18 10:00 Pulse Rate 113 H 09/26/18 10:00 Respiratory Rate 18 09/26/18 10:00 Blood Pressure 141/82 09/26/18 10:00 O2 Sat by Pulse Oximetry (%) 97 09/25/18 21:00 Cardiovascular: Yes: S1, S2 Respiratory: Yes: Rhonchi Gastrointestinal: Yes: Normal Bowel Sounds, Soft Labs: CBC, BMP 09/24/18 07:00 09/24/18 06:30 Problem List - Problems (1) Fever Assessment/Plan: -ABX PER ID Microbiology Vital Signs Period Temp Pulse Resp BP Sys/Dan Pulse Ox Last 24 Hr 98.2 F-98.9 F 113-124 18-21 103-141/70-82 97 Microbiology 09/25/18 12:40 Blood - Peripheral Venous Blood Culture - Preliminary NO GROWTH OBTAINED AFTER 24 HOURS, INCUBATION TO CONTINUE FOR 4 DAYS. 10/30/18 06:15 Blood - Peripheral Venous Blood Culture - Final NO GROWTH AFTER 5 DAYS INCUBATION 09/21/18 06:41 Blood - Peripheral Venous Blood Culture - Final NO GROWTH AFTER 5 DAYS INCUBATION 09/21/18 04:00 Urine - Urine Clean Catch Urine Culture - Final NO GROWTH OBTAINED 09/21/18 04:00 Urine For Antigen Detection Legionella Antigen - Final 09/21/18 04:00 Urine For Antigen Detection Streptococcus pneumoniae Antigen (M - Final 09/18/18 17:20 Blood - Peripheral Venous Blood Culture - Final Mr S Aureus 09/18/18 17:20 Blood - Peripheral Venous Blood Culture - Final Mr S Aureus 09/18/18 18:00 Urine - Urine Clean Catch Urine Culture - Final Contaminated: Please Repeat 09/19/18 03:22 Nasopharyngeal Swab Influenza Types A,B Antigen - Final 09/19/18 03:22 Nasopharyngeal Swab - Final Code(s): R50.9 - FEVER, UNSPECIFIED (2) Diabetes Assessment/Plan: -BGM Code(s): E11.9 - TYPE 2 DIABETES MELLITUS WITHOUT COMPLICATIONS (3) COPD (chronic obstructive pulmonary disease) Assessment/Plan: -NEBS PULM ON CASE Code(s): J44.9 - CHRONIC OBSTRUCTIVE PULMONARY DISEASE, UNSPECIFIED Qualifiers: COPD type: unspecified COPD Qualified Code(s): J44.9 - Chronic obstructive pulmonary disease, unspecified
[2018-09-26] MEDS ORDERED: EPINEPHrine 1:1,000 1 MG/1 ML - 30ML VIAL (INJECTION) ONE (14:43)
[2018-09-26] MEDS: ROSUVASTATIN CA 10 MG TABLET (FP) PO SCH (21:07)
[2018-09-26] MEDS: LORATADINE 10 MG TABLET PO SCH (21:07)
[2018-09-26] MEDS: MONTELUKAST NA 10 MG TABLET PO SCH (21:07)
[2018-09-27] MEDS ORDERED: GABAPENTIN 100 MG CAPSULE (FP) ONE ×3 (06:01→22:34)
[2018-09-27] MEDS ORDERED: GABAPENTIN 300 MG CAPSULE (FP) ONE ×3 (06:01→22:35)
[2018-09-27] MEDS: GABAPENTIN 300 MG, GABAPENTIN 200 MG PO SCH ×3 (06:27→22:52)
[2018-09-27] MEDS: BACLOFEN 10 MG TABLET (FP) PO SCH ×3 (06:28→22:52)
[2018-09-27] MEDS: LEVOTHYROXINE NA 50 MCG TABLET (FP) PO SCH (06:28)
[2018-09-27] MEDS: INSULIN SLIDING SCALE (NOVOLOG) 1 VIAL SQ SCH ×4 (06:37→22:40)
[2018-09-27] MEDS: INSULIN (LEVEMIR) 100 UNITS/ML UNITS SQ SCH ×2 (06:39→22:52)
[2018-09-27] MEDS: ALBUTEROL SO4 2.5/IPRATROPIUM 0.5 INH SOL 3 ML VIAL.NEB. NEB SCH ×4 (08:47→20:30)
--- NOTE | 2018-09-27 08:51 | PN ---
Progress Note (short form) - Note Progress Note: Neurology History of Present Illness: 52 y/o woman who presented to the ED with complaints of N/V/D x 2 days now resolved, but reported having a decreased appetite and generalized malaise. Patient reported that she had stomach flu-like symptoms as well. Patient denies fever, dizziness, COX, CP, dysuria. I was consulted because of tremor that was reported and in speaking with nurse, the patient has underlying anxiety and restlessness. She can be irritable and aggitated, Now, more alert and over the weekend has been neurologically stable. Did complete CT head which did not show acute changes. Is being treated for UTI which can precipitate tremor. Also with underlying neuropathy. Is on xanax, will not add further medication. Tremor improved with ongoing treatment of UTI. Neurologically stable this AM. Active Medications Acetaminophen (Tylenol -) 650 mg PO Q6H PRN PRN Reason: PAIN LEVEL 1-5 OR FEVER Last Admin: 09/21/18 09:31 Dose: 650 mg Albuterol Sulfate (Ventolin 0.083% Nebulizer Soln -) 1 amp NEB Q4H PRN PRN Reason: SHORT OF BREATH/WHEEZING Albuterol/Ipratropium (Duoneb -) 1 amp NEB RQID [facility] Last Admin: 09/26/18 20:38 Dose: 1 amp Alprazolam (Xanax -) 0.25 mg PO Q8H PRN PRN Reason: FOR ANXIETY Apixaban (Eliquis -) 5 mg PO BID [facility] Last Admin: 09/26/18 21:07 Dose: 5 mg Baclofen (Lioresal -) 20 mg PO TID [facility] Last Admin: 09/27/18 06:28 Dose: 20 mg Diltiazem HCl (Cardizem Cd -) 240 mg PO BID [facility] Last Admin: 09/26/18 21:08 Dose: 240 mg Doxepin HCl (Sinequan -) 25 mg PO DAILY [facility] Last Admin: 09/26/18 10:02 Dose: 25 mg Gabapentin 300 mg/ Gabapentin (200 mg) 500 mg PO TID [facility] Last Admin: 09/27/18 06:27 Dose: 500 mg Hydromorphone HCl (Dilaudid -) 4 mg PO Q8H PRN PRN Reason: PAIN LEVEL 6-10 Last Admin: 09/26/18 21:13 Dose: 4 mg IV Flush (Picc Line Flush) 8 ml IVPUSH PRN PRN PRN Reason: Protocol Insulin Aspart (Novolog Vial Sliding Scale -) 1 vial SQ [facility]; Protocol Last Admin: 09/27/18 06:37 Dose: Not Given Insulin Detemir (Levemir Vial) 35 units SQ BID@0700,2200 [facility] Last Admin: 09/27/18 06:39 Dose: 35 units Levothyroxine Sodium (Synthroid -) 50 mcg PO DAILY@0700 [facility] Last Admin: 09/27/18 06:28 Dose: 50 mcg Loratadine (Claritin -) 10 mg PO [facility] Last Admin: 09/26/18 21:07 Dose: 10 mg Methylnaltrexone [place] (Relistor -) 12 mg SQ DAILY [facility] Last Admin: 09/26/18 10:02 Dose: Not Given Montelukast Sodium (Singulair -) 10 mg PO [facility] Last Admin: 09/26/18 21:07 Dose: 10 mg Non-Formulary Medication (Mirabegron [Myrbetriq]) 50 mg PO DAILY [facility] Non-Formulary Medication (Vortioxetine Hydrobromide [Trintellix]) 20 mg PO DAILY [facility] Olanzapine (Zyprexa -) 5 mg PO BID [facility] Last Admin: 09/26/18 21:07 Dose: 5 mg Ondansetron HCl (Zofran Injection) 4 mg IVPUSH Q6H PRN PRN Reason: NAUSEA AND/OR VOMITING Last Admin: 09/22/18 21:55 Dose: 4 mg Ranitidine HCl (Zantac -) 300 mg PO DAILY [facility] Last Admin: 09/26/18 10:01 Dose: 300 mg Rosuvastatin Calcium (Crestor -) 10 mg PO HS [facility] Last Admin: 09/26/18 21:07 Dose: 10 mg Topiramate (Topamax -) 100 mg PO DAILY [facility] Last Admin: 09/26/18 10:01 Dose: 100 mg Venlafaxine HCl (Effexor Xr -) 75 mg PO DAILY@0800 [facility] Last Admin: 09/26/18 10:01 Dose: 75 mg Physical Examination Vital Signs: Vital Signs Period Temp Pulse Resp BP Sys/Dan Pulse Ox Last 24 Hr 98.2 F-98.5 F 112-114 18-18 124-147/76-88 Constitutional: Yes: No Distress, Calm, Obese Eyes: Yes: WNL, Conjunctiva Clear, EOM Intact, PERRL HENT: Yes: WNL, Atraumatic, Normocephalic Neck: Yes: Supple, Other (trach with collar) Cardiovascular: Yes: Pulse Irregular, S1, S2 Respiratory: Yes: Wheezes (bases), Other (trach with collar) Gastrointestinal: Yes: Normal Bowel Sounds, Soft, Abdomen, Obese, Tenderness ( LMQ) Renal/: Yes: WNL Breast(s): Yes: WNL Musculoskeletal: Yes: WNL Extremities: Yes: WNL Edema: No Peripheral Pulses WNL: Yes Integumentary: Yes: Tattoos Neurological: Yes: WNL, Alert, Oriented, Cran Nerves II-XII Intact, moves all extremities, no tremor noted, finger to nose intact CBCD WBC 11.6 K/mm3 (4.0-10.0) H 09/24/18 07:00 RBC 4.12 M/mm3 (3.60-5.2) 09/24/18 07:00 Hgb 8.7 GM/dL (10.7-15.3) L 09/24/18 07:00 Hct 31.0 % (32.4-45.2) L 09/24/18 07:00 MCV 75.3 fl (80-96) L 09/24/18 07:00 MCHC 27.9 g/dl (32.0-36.0) L 09/24/18 07:00 RDW 21.3 % (11.6-15.6) H 09/24/18 07:00 Plt Count 313 K/MM3 (134-434) 09/24/18 07:00 MPV 9.9 fl (7.5-11.1) 09/24/18 07:00 CMP Sodium 140 mmol/L (136-145) 09/24/18 06:30 Potassium 4.6 mmol/L (3.5-5.1) 09/24/18 06:30 Chloride 105 mmol/L (98-107) 09/24/18 06:30 Carbon Dioxide 26 mmol/L (21-32) 09/24/18 06:30 Anion Gap 9 MMOL/L (8-16) 09/24/18 06:30 BUN 9 mg/dL (7-18) 09/24/18 06:30 Creatinine 1.0 mg/dL (0.55-1.3) 09/24/18 06:30 Creat Clearance w eGFR 58.69 (>60) 09/24/18 06:30 Random Glucose 172 mg/dL (74-106) H 09/24/18 06:30 Calcium 8.3 mg/dL (8.5-10.1) L 09/24/18 06:30 Total Bilirubin 0.4 mg/dL (0.2-1) 09/24/18 06:30 AST 39 U/L (15-37) H 09/24/18:30 ALT 18 U/L (13-61) 09/24/18:30 Alkaline Phosphatase 175 U/L (45-117) H 09/24/18 06:30 Total Protein 5.9 g/dl (6.4-8.2) L 09/24/18 06:30 Albumin 2.0 g/dl (3.4-5.0) L 09/24/18 06:[address] head reviewed Plan 52 y/o woman who presented to the ED with complaints of N/V/D x 2 days now resolved, but reported having a decreased appetite and generalized malaise. Patient reported that she had stomach flu-like symptoms as well. Patient denies fever, dizziness, COX, CP, dysuria. I was consulted because of tremor that was reported and in speaking with nurse, the patient has underlying anxiety and restlessness. She can be irritable and aggitated, this AM was calm and cooperative for me. Did complete CT head which did not show acute changes. Is being treated for UTI which can precipitate tremor. Also with underlying neuropathy. Recommend continued Tx for UTI, defer to ID, note reviewed. Maintain adequate hydration. Tremor has been stable with treatment for UTI. Has hypothyroid, monitor TSH and thyroid levels, as hyperthyroid can precipitate this as well. Monitor glucose, maintain normal range. Avoid hypo/ hyperglycemia.
--- NOTE | 2018-09-27 09:02 | DS ---
Physical Examination Vital Signs: Vital Signs Temperature 98.4 F 09/27/18 06:00 Pulse Rate 112 H 09/27/18 06:00 Respiratory Rate 18 09/27/18 06:00 Blood Pressure 124/76 09/27/18 06:00 O2 Sat by Pulse Oximetry (%) 97 09/25/18 21:00 Findings/Remarks: PATIENT IS AWAKE AND COMFORTABLE TO HAVE PICC LINE PLACED TODAY BEFORE DC TO SNF Constitutional: Yes: No Distress Eyes: Yes: WNL HENT: Yes: Other Neck: Yes: Other (TRACHEOSTOMY) Cardiovascular: Yes: Regular Rate and Rhythm Respiratory: Yes: Other (TRACHCOLLAR WITH SUPPORT) Gastrointestinal: Yes: Soft, Abdomen, Obese Renal/: Yes: Incontinence Musculoskeletal: Yes: Muscle Weakness Extremities: Yes: Other Edema: No Peripheral Pulses WNL: Yes Integumentary: Yes: Other Wound/Incision: Yes: Other Neurological: Yes: Pre-Existing Deficit ...Motor Strength: LLE, RLE Psychiatric: Yes: Other Labs: CBC, BMP 09/24/18 07:00 09/24/18 06:30 Discharge Summary Reason For Visit: INCREASED LACTIC ACID LEVEL Current Active Problems Elevated lactic acid level (Acute) Sepsis (Acute) UTI (urinary tract infection) (Acute) Procedures: Principal: PICC LINE Hospital Course: ADMITTED WITH SEPSIS, PNEUMONIA, TREATED WITH IV ABX, 02 SUPPORT, NEBS, PICC LINE PLACED AND WILL NEED 28 TOTAL DAYS OF VANCOMYCIN IV. CURRENTLY ON DAY 9 OF 28 DAYS. Condition: Fair - Instructions Diet, Activity, Other Instructions: 28 DAYS TOTAL OF IV VANCOMYCIN CURRENTLY ON DAY 9 OF 28. TRACH COLLAR MAINTANCE DIET LOW FAT/LOW CONCENTRATED SWEETS. Disposition: CUSTODIAL FACILITY - Home Medications Comprehensive Discharge Medication List: Ambulatory Orders Albuterol Sulfate Inhaler - [Ventolin HFA Inhaler -] 2 puff IH Q4H PRN #0 inhaler 11/29/16 Acetaminophen [Tylenol .Regular Strength -] 650 mg PO Q6H PRN #0 tablet Apixaban [Eliquis -] 5 mg PO BID tablet 04/29/17 Baclofen 20 mg PO TID 07/09/18 Diltiazem HCl [Diltiazem 24Hr Cd] 240 mg PO BID 07/09/18 Levocetirizine Dihydrochloride 5 mg PO HS 07/09/18 Levothyroxine [Synthroid -] 50 mcg PO DAILY 07/09/18 Rosuvastatin Calcium [Crestor] 10 mg PO DAILY 07/09/18 Venlafaxine HCl ER [Effexor Xr -] 75 mg PO DAILY 07/09/18 Famotidine 40 mg PO BID 08/07/18 Hydromorphone HCl 4 mg PO Q4H 08/07/18 Mirabegron [Myrbetriq] 50 mg PO DAILY 08/07/18 Montelukast Na [Singulair -] 10 mg PO HS 08/07/18 Alprazolam [Xanax] 0.25 mg PO TID #15 tablet MDD 3 08/15/18 Doxepin HCl [Sinequan -] 25 mg PO DAILY #30 capsule 08/15/18 Linaclotide [Linzess] 145 mcg PO DAILY #30 cap 08/15/18 Pantoprazole Sodium [Protonix -] 40 mg PO DAILY #30 tablet.ec 08/15/18 Topiramate [Topamax -] 100 mg PO DAILY #30 tablet 08/15/18 Vortioxetine Hydrobromide [Trintellix] 20 mg PO DAILY #30 tablet 08/15/18 Gabapentin [Neurontin -] 500 mg PO Q8H #21 capsule 08/30/18 Insulin (Novolog) [Novolog -] 0 units SQ AC 08/30/18 Ondansetron [Zofran -] 8 mg PO TID 08/30/18 Zolpidem Tartrate 10 mg PO HS MDD 1 09/04/18 Gabapentin [Neurontin -] 500 mg PO TID #90 capsule 09/08/18 Nitrofurantoin Monohyd/M-Cryst [Macrobid -] 100 mg PO BID #14 capsule 09/08/18 Ondansetron [Ondansetron Odt] 8 mg PO TID #90 tab.rapdis 09/09/18 Phenazopyridine HCl [Pyridium -] 100 mg PO ONCE #6 tablet 09/15/18 Fluconazole [Diflucan -] 200 mg PO DAILY #7 tablet 09/18/18
--- NOTE | 2018-09-27 10:09 | PN ---
Progress Note (short form) - Note Progress Note: PULMONARY States she feels her trach is loose. No shortness of breath. No fevers recorded. Vital Signs Period Temp Pulse Resp BP Sys/Dan Pulse Ox Last 24 Hr 98.4 F-98.5 F 112-114 - 124-147/76-88 Gen: NAD at rest Heart: RRR Lung: decreased breath sounds at the bases Abd: soft, nontender Ext: no edema CBC, BMP 09/24/18 07:00 09/24/18 06:30 Active Medications Acetaminophen (Tylenol -) 650 mg PO Q6H PRN PRN Reason: PAIN LEVEL 1-5 OR FEVER Last Admin: 09/21/18 09:31 Dose: 650 mg Albuterol Sulfate (Ventolin 0.083% Nebulizer Soln -) 1 amp NEB Q4H PRN PRN Reason: SHORT OF BREATH/WHEEZING Albuterol/Ipratropium (Duoneb -) 1 amp NEB RQID [facility] Last Admin: 09/26/18 20:38 Dose: 1 amp Alprazolam (Xanax -) 0.25 mg PO Q8H PRN PRN Reason: FOR ANXIETY Apixaban (Eliquis -) 5 mg PO BID [facility] Last Admin: 09/26/18 21:07 Dose: 5 mg Baclofen (Lioresal -) 20 mg PO TID [facility] Last Admin: 09/27/18 06:28 Dose: 20 mg Diltiazem HCl (Cardizem Cd -) 240 mg PO BID [facility] Last Admin: 09/26/18 21:08 Dose: 240 mg Doxepin HCl (Sinequan -) 25 mg PO DAILY [facility] Last Admin: 09/26/18 10:02 Dose: 25 mg Gabapentin 300 mg/ Gabapentin (200 mg) 500 mg PO TID [facility] Last Admin: 09/27/18 06:27 Dose: 500 mg Hydromorphone HCl (Dilaudid -) 4 mg PO Q8H PRN PRN Reason: PAIN LEVEL 6-10 Last Admin: 09/26/18 21:13 Dose: 4 mg IV Flush (Picc Line Flush) 8 ml IVPUSH PRN PRN PRN Reason: Protocol Insulin Aspart (Novolog Vial Sliding Scale -) 1 vial SQ [facility]; Protocol Last Admin: 09/27/18 06:37 Dose: Not Given Insulin Detemir (Levemir Vial) 35 units SQ BID@0700,2200 [facility] Last Admin: 09/27/18 06:39 Dose: 35 units Levothyroxine Sodium (Synthroid -) 50 mcg PO DAILY@0700 [facility] Last Admin: 09/27/18 06:28 Dose: 50 mcg Loratadine (Claritin -) 10 mg PO HS [facility] Last Admin: 09/26/18 21:07 Dose: 10 mg Methylnaltrexone [place] (Relistor -) 12 mg SQ DAILY [facility] Last Admin: 09/26/18 10:02 Dose: Not Given Montelukast Sodium (Singulair -) 10 mg PO [facility] Last Admin: 09/26/18 21:07 Dose: 10 mg Non-Formulary Medication (Mirabegron [Myrbetriq]) 50 mg PO DAILY [facility] Non-Formulary Medication (Vortioxetine Hydrobromide [Trintellix]) 20 mg PO DAILY [facility] Olanzapine (Zyprexa -) 5 mg PO BID [facility] Last Admin: 09/26/18 21:07 Dose: 5 mg Ondansetron HCl (Zofran Injection) 4 mg IVPUSH Q6H PRN PRN Reason: NAUSEA AND/OR VOMITING Last Admin: 09/22/18 21:55 Dose: 4 mg Ranitidine HCl (Zantac -) 300 mg PO DAILY [facility] Last Admin: 09/26/18 10:01 Dose: 300 mg Rosuvastatin Calcium (Crestor -) 10 mg PO HS [facility] Last Admin: 09/26/18 21:07 Dose: 10 mg Topiramate (Topamax -) 100 mg PO DAILY [facility] Last Admin: 09/26/18 10:01 Dose: 100 mg Venlafaxine HCl (Effexor Xr -) 75 mg PO DAILY@0800 [facility] Last Admin: 09/26/18 10:01 Dose: 75 mg A/P UTI Pneumonia MRSA Bacteremia Chronic Hypoxic and Hypercapneic Respiratory Failure Asthma/COPD HTN Paroxysmal Atrial Fibrillation DM Hypothyroidism Chronic Pain - continue antibiotics per ID - repeat CXR for trach placement - inhaled bronchodilators standing and PRN - O2 to keep Spo2 >90% - can defer systemic steroids at this time - rate controlled - continue anticoagulation Problem List - Problems (1) UTI (urinary tract infection) Code(s): N39.0 - URINARY TRACT INFECTION, SITE NOT SPECIFIED (2) Pneumonia Code(s): J18.9 - PNEUMONIA, UNSPECIFIED ORGANISM Qualifiers: Pneumonia type: due to unspecified organism Laterality: unspecified laterality Lung location: unspecified part of lung Qualified Code(s): J18.9 - Pneumonia, unspecified organism
[2018-09-27] MEDS ORDERED: PT OWN MED DRAWER 7, Y5N ONE ×2 (10:42→22:36)
[2018-09-27] MEDS: APIXABAN 5 MG TABLET PO SCH ×2 (10:45→22:51)
[2018-09-27] MEDS: RANITIDINE HCL 150 MG TABLET (FP) PO SCH (10:46)
[2018-09-27] MEDS: ALPRAZolam 0.25 MG TABLET PO PRN ×2 (10:46→22:52)
[2018-09-27] MEDS: Methylnaltrexone Bromide 12 MG/0.6 ML KIT SQ SCH ×2 (10:47→11:03)
[2018-09-27] MEDS: VENLAFAXINE HCL 75 MG E.R. CAPSULES (FP) PO SCH (10:47)
[2018-09-27] MEDS: DOXEPIN HCL 25 MG CAPSULE PO SCH (10:47)
[2018-09-27] MEDS: TOPIRAMATE 100 MG TABLET PO SCH (10:47)
[2018-09-27] MEDS: OLANZapine 5 MG TABLET PO SCH ×2 (10:48→22:52)
--- NOTE | 2018-09-27 13:25 | PN ---
Progress Note, Physician Chief Complaint: Awake and alert No focal complaint No c/o fever/ chills Non-toxic appearing - Current Medication List Current Medications: Active Medications Acetaminophen (Tylenol -) 650 mg PO Q6H PRN PRN Reason: PAIN LEVEL 1-5 OR FEVER Last Admin: 09/21/18 09:31 Dose: 650 mg Albuterol Sulfate (Ventolin 0.083% Nebulizer Soln -) 1 amp NEB Q4H PRN PRN Reason: SHORT OF BREATH/WHEEZING Albuterol/Ipratropium (Duoneb -) 1 amp NEB RQID [facility] Last Admin: 09/27/18 08:47 Dose: 1 amp Alprazolam (Xanax -) 0.25 mg PO Q8H PRN PRN Reason: FOR ANXIETY Last Admin: 09/27/18 10:46 Dose: 0.25 mg Apixaban (Eliquis -) 5 mg PO BID [facility] Last Admin: 09/27/18 10:45 Dose: 5 mg Baclofen (Lioresal -) 20 mg PO TID [facility] Last Admin: 09/27/18 06:28 Dose: 20 mg Diltiazem HCl (Cardizem Cd -) 240 mg PO BID [facility] Last Admin: 09/27/18 10:46 Dose: 240 mg Doxepin HCl (Sinequan -) 25 mg PO DAILY [facility] Last Admin: 09/27/18 10:47 Dose: 25 mg Gabapentin 300 mg/ Gabapentin (200 mg) 500 mg PO TID [facility] Last Admin: 09/27/18 06:27 Dose: 500 mg Hydromorphone HCl (Dilaudid -) 4 mg PO Q8H PRN PRN Reason: PAIN LEVEL 6-10 Last Admin: 09/26/18 21:13 Dose: 4 mg IV Flush (Picc Line Flush) 8 ml IVPUSH PRN PRN PRN Reason: Protocol Insulin Aspart (Novolog Vial Sliding Scale -) 1 vial SQ [facility]; Protocol Last Admin: 09/27/18 12:20 Dose: Not Given Insulin Detemir (Levemir Vial) 35 units SQ BID@0700,2200 [facility] Last Admin: 09/27/18 06:39 Dose: 35 units Levothyroxine Sodium (Synthroid -) 50 mcg PO DAILY@0700 [facility] Last Admin: 11/05/18 06:28 Dose: 50 mcg Loratadine (Claritin -) 10 mg PO HS [facility] Last Admin: 09/26/18 21:07 Dose: 10 mg Methylnaltrexone [place] (Relistor -) 12 mg SQ DAILY [facility] Last Admin: 09/27/18 11:03 Dose: Not Given Montelukast Sodium (Singulair -) 10 mg PO HS [facility] Last Admin: 09/26/18 21:07 Dose: 10 mg Non-Formulary Medication (Mirabegron [Myrbetriq]) 50 mg PO DAILY [facility] Non-Formulary Medication (Vortioxetine Hydrobromide [Trintellix]) 20 mg PO DAILY [facility] Olanzapine (Zyprexa -) 5 mg PO BID [facility] Last Admin: 09/27/18 10:48 Dose: 5 mg Ondansetron HCl (Zofran Injection) 4 mg IVPUSH Q6H PRN PRN Reason: NAUSEA AND/OR VOMITING Last Admin: 09/22/18 21:55 Dose: 4 mg Ranitidine HCl (Zantac -) 300 mg PO DAILY [facility] Last Admin: 09/27/18 10:46 Dose: 300 mg Rosuvastatin Calcium (Crestor -) 10 mg PO HS [facility] Last Admin: 09/26/18 21:07 Dose: 10 mg Topiramate (Topamax -) 100 mg PO DAILY [facility] Last Admin: 09/27/18 10:47 Dose: 100 mg Venlafaxine HCl (Effexor Xr -) 75 mg PO DAILY@0800 [facility] Last Admin: 09/27/18 10:47 Dose: 75 mg - Objective Vital Signs: Vital Signs Temperature 98.4 F 09/27/18 06:00 Pulse Rate 112 H 09/27/18 06:00 Respiratory Rate 18 09/27/18 06:00 Blood Pressure 124/76 09/27/18 06:00 O2 Sat by Pulse Oximetry (%) 97 09/25/18 21:00 Constitutional: Yes: No Distress, Obese Eyes: Yes: Conjunctiva Clear Cardiovascular: Yes: Regular Rate and Rhythm, S1, S2 Respiratory: Yes: Diminished Gastrointestinal: Yes: Normal Bowel Sounds, Soft. No: Tenderness Edema: No Labs: CBC, BMP 09/24/18 07:00 09/24/18 06:30 Assessment/Plan MRSA bacteremia ? toxic metabolic encehalopathy improved Exacerbation COPD Day # 08/20 vancomycin Repeat BC no growth Resume vancomycin @ 1gm IVPB q24h PICC for outpatient vancomycin 1gm q12h x 19days
[2018-09-27] MEDS ORDERED: VANCOMYCIN 1,000 MG in DEXTROSE 5%-WATER - 250 ML IVPB SCH (13:30)
[2018-09-27] MEDS: VANCOMYCIN 1 GRAM (PRE-DOCKED) 1,000 MG/250 ML BAG IVPB SCH (15:58)
[2018-09-27] MEDS: MONTELUKAST NA 10 MG TABLET PO SCH (22:52)
[2018-09-27] MEDS: ROSUVASTATIN CA 10 MG TABLET (FP) PO SCH (22:52)
[2018-09-27] MEDS: LORATADINE 10 MG TABLET PO SCH (22:52)
[2018-09-28] MEDS ORDERED: GABAPENTIN 100 MG CAPSULE (FP) ONE ×3 (05:33→21:50)
[2018-09-28] MEDS ORDERED: GABAPENTIN 300 MG CAPSULE (FP) ONE ×3 (05:34→21:50)
[2018-09-28] MEDS: INSULIN SLIDING SCALE (NOVOLOG) 1 VIAL SQ SCH ×4 (06:13→23:04)
[2018-09-28] MEDS: GABAPENTIN 300 MG, GABAPENTIN 200 MG PO SCH ×3 (06:14→23:02)
[2018-09-28] MEDS: BACLOFEN 10 MG TABLET (FP) PO SCH ×3 (06:14→23:03)
[2018-09-28] MEDS: LEVOTHYROXINE NA 50 MCG TABLET (FP) PO SCH (06:14)
[2018-09-28] MEDS: INSULIN (LEVEMIR) 100 UNITS/ML UNITS SQ SCH ×2 (06:14→23:04)
--- NOTE | 2018-09-28 08:47 | PN ---
Progress Note (short form) - Note Progress Note: Neurology History of Present Illness: 52 y/o woman who presented to the ED with complaints of N/V/D x 2 days now resolved, but reported having a decreased appetite and generalized malaise. Patient reported that she had stomach flu-like symptoms as well. Patient denies fever, dizziness, COX, CP, dysuria. I was consulted because of tremor that was reported and in speaking with nurse, the patient has underlying anxiety and restlessness. She can be irritable and aggitated, Now, more alert and over the weekend has been neurologically stable. Did complete CT head which did not show acute changes. Is being treated for UTI which can precipitate tremor. Also with underlying neuropathy. Is on xanax, will not add further medication. Tremor improved with ongoing treatment of UTI. ID note reviewed, on Vanco, plan is for PICC line. Active Medications Acetaminophen (Tylenol -) 650 mg PO Q6H PRN PRN Reason: PAIN LEVEL 1-5 OR FEVER Last Admin: 09/21/18 09:31 Dose: 650 mg Alprazolam (Xanax -) 0.25 mg PO Q8H PRN PRN Reason: FOR ANXIETY Last Admin: 09/27/18 22:52 Dose: 0.25 mg Apixaban (Eliquis -) 5 mg PO BID [facility] Last Admin: 09/27/18 22:51 Dose: 5 mg Baclofen (Lioresal -) 20 mg PO TID [facility] Last Admin: 09/28/18 06:14 Dose: 20 mg Diltiazem HCl (Cardizem Cd -) 240 mg PO BID [facility] Last Admin: 09/27/18 22:51 Dose: 240 mg Doxepin HCl (Sinequan -) 25 mg PO DAILY [facility] Last Admin: 09/27/18 10:47 Dose: 25 mg Gabapentin 300 mg/ Gabapentin (200 mg) 500 mg PO TID [facility] Last Admin: 09/28/18 06:14 Dose: 500 mg Hydromorphone HCl (Dilaudid -) 4 mg PO Q8H PRN PRN Reason: PAIN LEVEL 6-10 Last Admin: 09/28/18 01:58 Dose: 4 mg IV Flush (Picc Line Flush) 8 ml IVPUSH PRN PRN PRN Reason: Protocol Vancomycin HCl (Vancomycin (Pre-Docked)) 1,000 mg in 250 mls @ 200 mls/hr IVPB DAILY@1500 [facility]; Protocol Last Admin: 09/27/18 15:58 Dose: 200 mls/hr Insulin Aspart (Novolog Vial Sliding Scale -) 1 vial SQ [facility]; Protocol Last Admin: 09/28/18 06:13 Dose: Not Given Insulin Detemir (Levemir Vial) 35 units SQ BID@0700,2200 [facility] Last Admin: 09/28/18 06:14 Dose: 35 units Levothyroxine Sodium (Synthroid -) 50 mcg PO DAILY@0700 [facility] Last Admin: 09/28/18 06:14 Dose: 50 mcg Loratadine (Claritin -) 10 mg PO [facility] Last Admin: 09/27/18 22:52 Dose: 10 mg Methylnaltrexone [place] (Relistor -) 12 mg SQ DAILY [facility] Last Admin: 09/27/18 11:03 Dose: Not Given Montelukast Sodium (Singulair -) 10 mg PO [facility] Last Admin: 09/27/18 22:52 Dose: 10 mg Non-Formulary Medication (Mirabegron [Myrbetriq]) 50 mg PO DAILY [facility] Non-Formulary Medication (Vortioxetine Hydrobromide [Trintellix]) 20 mg PO DAILY [facility] Olanzapine (Zyprexa -) 5 mg PO BID [facility] Last Admin: 09/27/18 22:52 Dose: 5 mg Ondansetron HCl (Zofran Injection) 4 mg IVPUSH Q6H PRN PRN Reason: NAUSEA AND/OR VOMITING Last Admin: 09/22/18 21:55 Dose: 4 mg Ranitidine HCl (Zantac -) 300 mg PO DAILY [facility] Last Admin: 09/27/18 10:46 Dose: 300 mg Rosuvastatin Calcium (Crestor -) 10 mg PO [facility] Last Admin: 09/27/18 22:52 Dose: 10 mg Topiramate (Topamax -) 100 mg PO DAILY [facility] Last Admin: 09/27/18 10:47 Dose: 100 mg Venlafaxine HCl (Effexor Xr -) 75 mg PO DAILY@0800 [facility] Last Admin: 09/27/18 10:47 Dose: 75 mg Physical Examination Vital Signs: Vital Signs Period Temp Pulse Resp BP Sys/Dan Pulse Ox Last 24 Hr 98.3 F-98.6 F 72-110 16-20 102-130/58-70 Constitutional: Yes: No Distress, Calm, Obese Eyes: Yes: WNL, Conjunctiva Clear, EOM Intact, PERRL HENT: Yes: WNL, Atraumatic, Normocephalic Neck: Yes: Supple, Other (trach with collar) Cardiovascular: Yes: Pulse Irregular, S1, S2 Respiratory: Yes: Wheezes (bases), Other (trach with collar) Gastrointestinal: Yes: Normal Bowel Sounds, Soft, Abdomen, Obese, Tenderness ( LMQ) Renal/: Yes: WNL Breast(s): Yes: WNL Musculoskeletal: Yes: WNL Extremities: Yes: WNL Edema: No Peripheral Pulses WNL: Yes Integumentary: Yes: Tattoos Neurological: Yes: WNL, Alert, Oriented, Cran Nerves II-XII Intact, moves all extremities, no tremor noted, finger to nose intact CBCD WBC 11.6 K/mm3 (4.0-10.0) H 09/24/18 07:00 RBC 4.12 M/mm3 (3.60-5.2) 09/24/18 07:00 Hgb 8.7 GM/dL (10.7-15.3) L 09/24/18 07:00 Hct 31.0 % (32.4-45.2) L 09/24/18 07:00 MCV 75.3 fl (80-96) L 09/24/18 07:00 MCHC 27.9 g/dl (32.0-36.0) L 09/24/18 07:00 RDW 21.3 % (11.6-15.6) H 09/24/18 07:00 Plt Count 313 K/MM3 (134-434) 09/24/18 07:00 MPV 9.9 fl (7.5-11.1) 09/24/18 07:00 CMP Sodium 140 mmol/L (136-145) 09/24/18 06:30 Potassium 4.6 mmol/L (3.5-5.1) 09/24/18 06:30 Chloride 105 mmol/L (98-107) 09/24/18 06:30 Carbon Dioxide 26 mmol/L (21-32) 09/24/18 06:30 Anion Gap 9 MMOL/L (8-16) 09/24/18 06:30 BUN 9 mg/dL (7-18) 09/24/18 06:30 Creatinine 1.0 mg/dL (0.55-1.3) 09/24/18 06:30 Creat Clearance w eGFR 58.69 (>60) 09/24/18 06:30 Random Glucose 172 mg/dL (74-106) H 09/24/18 06:30 Calcium 8.3 mg/dL (8.5-10.1) L 09/24/18 06:30 Total Bilirubin 0.4 mg/dL (0.2-1) 09/24/18 06:30 AST 39 U/L (15-37) H 09/24/18:30 ALT 18 U/L (13-61) 09/24/18:30 Alkaline Phosphatase 175 U/L (45-117) H 09/24/18 06:30 Total Protein 5.9 g/dl (6.4-8.2) L 09/24/18 06:30 Albumin 2.0 g/dl (3.4-5.0) L 09/24/18 06:[address] head reviewed Plan 52 y/o woman who presented to the ED with complaints of N/V/D x 2 days now resolved, but reported having a decreased appetite and generalized malaise. Patient reported that she had stomach flu-like symptoms as well. Patient denies fever, dizziness, COX, CP, dysuria. I was consulted because of tremor that was reported and in speaking with nurse, the patient has underlying anxiety and restlessness. She can be irritable and aggitated, this AM was calm and cooperative for me. Did complete CT head which did not show acute changes. Is being treated for UTI which can precipitate tremor. Also with underlying neuropathy. Recommend continued Tx for UTI, defer to ID, note reviewed. Maintain adequate hydration. Tremor has been stable with treatment for UTI. Has hypothyroid, monitor TSH and thyroid levels, as hyperthyroid can precipitate this as well. Monitor glucose, maintain normal range. Avoid hypo/ hyperglycemia. ID note reviewed, remains on Vanco, plan is for PICC line and outpatient Abx completion of 28 day course
--- NOTE | 2018-09-28 09:32 | PN ---
Progress Note (short form) - Note Progress Note: PULMONARY CXR done yesterday showing correct placement of trach. No fevers recorded. Vital Signs Period Temp Pulse Resp BP Sys/Dan Pulse Ox Last 24 Hr 98.4 F-98.5 F 112-114 124-147/76-88 Gen: NAD at rest Heart: RRR Lung: decreased breath sounds at the bases Abd: soft, nontender Ext: no edema CBC, BMP 09/24/18 07:00 09/24/18 06:30 Active Medications Acetaminophen (Tylenol -) 650 mg PO Q6H PRN PRN Reason: PAIN LEVEL 1-5 OR FEVER Last Admin: 09/21/18 09:31 Dose: 650 mg Alprazolam (Xanax -) 0.25 mg PO Q8H PRN PRN Reason: FOR ANXIETY Last Admin: 09/27/18 22:52 Dose: 0.25 mg Apixaban (Eliquis -) 5 mg PO BID [facility] Last Admin: 09/27/18 22:51 Dose: 5 mg Baclofen (Lioresal -) 20 mg PO TID [facility] Last Admin: 09/28/18 06:14 Dose: 20 mg Diltiazem HCl (Cardizem Cd -) 240 mg PO BID [facility] Last Admin: 09/27/18 22:51 Dose: 240 mg Doxepin HCl (Sinequan -) 25 mg PO DAILY [facility] Last Admin: 09/27/18 10:47 Dose: 25 mg Gabapentin 300 mg/ Gabapentin (200 mg) 500 mg PO TID [facility] Last Admin: 09/28/18 06:14 Dose: 500 mg Hydromorphone HCl (Dilaudid -) 4 mg PO Q8H PRN PRN Reason: PAIN LEVEL 6-10 Last Admin: 09/28/18 01:58 Dose: 4 mg IV Flush (Picc Line Flush) 8 ml IVPUSH PRN PRN PRN Reason: Protocol Vancomycin HCl (Vancomycin (Pre-Docked)) 1,000 mg in 250 mls @ 200 mls/hr IVPB DAILY@1500 [facility]; Protocol Last Admin: 09/27/18 15:58 Dose: 200 mls/hr Insulin Aspart (Novolog Vial Sliding Scale -) 1 vial SQ [facility]; Protocol Last Admin: 09/28/18 06:13 Dose: Not Given Insulin Detemir (Levemir Vial) 35 units SQ BID@0700,2200 [facility] Last Admin: 09/28/18 06:14 Dose: 35 units Levothyroxine Sodium (Synthroid -) 50 mcg PO DAILY@0700 [facility] Last Admin: 09/28/18 06:14 Dose: 50 mcg Loratadine (Claritin -) 10 mg PO HS [facility] Last Admin: 09/27/18 22:52 Dose: 10 mg Methylnaltrexone [place] (Relistor -) 12 mg SQ DAILY [facility] Last Admin: 09/27/18 11:03 Dose: Not Given Montelukast Sodium (Singulair -) 10 mg PO [facility] Last Admin: 09/27/18 22:52 Dose: 10 mg Non-Formulary Medication (Mirabegron [Myrbetriq]) 50 mg PO DAILY [facility] Non-Formulary Medication (Vortioxetine Hydrobromide [Trintellix]) 20 mg PO DAILY [facility] Olanzapine (Zyprexa -) 5 mg PO BID [facility] Last Admin: 09/27/18 22:52 Dose: 5 mg Ondansetron HCl (Zofran Injection) 4 mg IVPUSH Q6H PRN PRN Reason: NAUSEA AND/OR VOMITING Last Admin: 09/22/18 21:55 Dose: 4 mg Ranitidine HCl (Zantac -) 300 mg PO DAILY [facility] Last Admin: 09/27/18 10:46 Dose: 300 mg Rosuvastatin Calcium (Crestor -) 10 mg PO HS [facility] Last Admin: 09/27/18 22:52 Dose: 10 mg Topiramate (Topamax -) 100 mg PO DAILY [facility] Last Admin: 09/27/18 10:47 Dose: 100 mg Venlafaxine HCl (Effexor Xr -) 75 mg PO DAILY@0800 [facility] Last Admin: 09/27/18 10:47 Dose: 75 mg A/P UTI Pneumonia MRSA Bacteremia Chronic Hypoxic and Hypercapneic Respiratory Failure Asthma/COPD HTN Paroxysmal Atrial Fibrillation DM Hypothyroidism Chronic Pain - continue antibiotics per ID - inhaled bronchodilators standing and PRN - O2 to keep Spo2 >90% - can defer systemic steroids at this time - rate controlled - continue anticoagulation - d/c planning Problem List - Problems (1) UTI (urinary tract infection) Code(s): N39.0 - URINARY TRACT INFECTION, SITE NOT SPECIFIED (2) Pneumonia Code(s): J18.9 - PNEUMONIA, UNSPECIFIED ORGANISM Qualifiers: Pneumonia type: due to unspecified organism Laterality: unspecified laterality Lung location: unspecified part of lung Qualified Code(s): J18.9 - Pneumonia, unspecified organism
[2018-09-28] MEDS ORDERED: PT OWN MED DRAWER 7, Y5N ONE ×2 (09:53→21:51)
[2018-09-28] MEDS: TOPIRAMATE 100 MG TABLET PO SCH (10:14)
[2018-09-28] MEDS: APIXABAN 5 MG TABLET PO SCH ×2 (10:14→23:04)
[2018-09-28] MEDS: RANITIDINE HCL 150 MG TABLET (FP) PO SCH (10:14)
[2018-09-28] MEDS: DOXEPIN HCL 25 MG CAPSULE PO SCH (10:14)
[2018-09-28] MEDS: VENLAFAXINE HCL 75 MG E.R. CAPSULES (FP) PO SCH (10:14)
[2018-09-28] MEDS: OLANZapine 5 MG TABLET PO SCH ×2 (10:14→23:04)
[2018-09-28] MEDS: Methylnaltrexone Bromide 12 MG/0.6 ML KIT SQ SCH (10:15)
[2018-09-28] MEDS: ALPRAZolam 0.25 MG TABLET PO PRN ×2 (11:22→23:03)
--- NOTE | 2018-09-28 13:26 | PN ---
Progress Note (short form) - Note Progress Note: PATIENT IN BED DISCHARGED AND FORMS COMPLETED TO GO TO [facility] FOR SNF PLACEMENT [facility] TRAINED FACILITY FOR PROPER CONTINUITY OF CARE. IV ABX VIA PICC LINE 28 TOTAL DAY DAY 10 OF 28 GIVEN AT [facility]. Problem List - Problems (1) Elevated lactic acid level Code(s): R79.89 - OTHER SPECIFIED ABNORMAL FINDINGS OF BLOOD CHEMISTRY (2) Sepsis Code(s): A41.9 - SEPSIS, UNSPECIFIED ORGANISM (3) UTI (urinary tract infection) Code(s): N39.0 - URINARY TRACT INFECTION, SITE NOT SPECIFIED (4) Abdominal pain Code(s): R10.9 - UNSPECIFIED ABDOMINAL PAIN (5) Acute and chronic respiratory failure with hypoxia Code(s): J96.21 - ACUTE AND CHRONIC RESPIRATORY FAILURE WITH HYPOXIA (6) Anemia Code(s): D64.9 - ANEMIA, UNSPECIFIED (7) Chronic respiratory failure Code(s): J96.10 - CHRONIC RESPIRATORY FAILURE, UNSP W HYPOXIA OR HYPERCAPNIA (8) Diabetes Code(s): E11.9 - TYPE 2 DIABETES MELLITUS WITHOUT COMPLICATIONS (9) Hypothyroid Code(s): E03.9 - HYPOTHYROIDISM, UNSPECIFIED Qualifiers: Hypothyroidism type: unspecified Qualified Code(s): E03.9 - Hypothyroidism , unspecified (10) Anxiety Code(s): F41.9 - ANXIETY DISORDER, UNSPECIFIED (11) Bipolar 2 disorder Code(s): F31.81 - BIPOLAR II DISORDER (12) COPD (chronic obstructive pulmonary disease) Code(s): J44.9 - CHRONIC OBSTRUCTIVE PULMONARY DISEASE, UNSPECIFIED Qualifiers: COPD type: unspecified COPD Qualified Code(s): J44.9 - Chronic obstructive pulmonary disease, unspecified (13) Depression with anxiety Code(s): F41.8 - OTHER SPECIFIED ANXIETY DISORDERS (14) Diabetes mellitus, insulin dependent (IDDM), uncontrolled Code(s): E10.65 - TYPE 1 DIABETES MELLITUS WITH HYPERGLYCEMIA (15) Neuropathy Code(s): G62.9 - POLYNEUROPATHY, UNSPECIFIED (16) Paroxysmal atrial fibrillation Code(s): I48.0 - PAROXYSMAL ATRIAL FIBRILLATION
[2018-09-28] MEDS: VANCOMYCIN 1 GRAM (PRE-DOCKED) 1,000 MG/250 ML BAG IVPB SCH (15:01)
[2018-09-28] MEDS: LORATADINE 10 MG TABLET PO SCH (23:03)
[2018-09-28] MEDS: ROSUVASTATIN CA 10 MG TABLET (FP) PO SCH (23:03)
[2018-09-28] MEDS: MONTELUKAST NA 10 MG TABLET PO SCH (23:03)
[2018-09-28] MEDS: ACETAMINOPHEN 325 MG TABLET (FP) PO PRN (23:04)
[2018-09-29] MEDS ORDERED: GABAPENTIN 100 MG CAPSULE (FP) ONE ×3 (06:46→22:05)
[2018-09-29] MEDS ORDERED: GABAPENTIN 300 MG CAPSULE (FP) ONE ×3 (06:47→22:05)
[2018-09-29] MEDS: INSULIN SLIDING SCALE (NOVOLOG) 1 VIAL SQ SCH ×4 (06:51→22:45)
[2018-09-29] MEDS: BACLOFEN 10 MG TABLET (FP) PO SCH ×3 (06:52→22:12)
[2018-09-29] MEDS: GABAPENTIN 300 MG, GABAPENTIN 200 MG PO SCH ×3 (06:52→22:12)
[2018-09-29] MEDS: LEVOTHYROXINE NA 50 MCG TABLET (FP) PO SCH (06:53)
[2018-09-29] MEDS: INSULIN (LEVEMIR) 100 UNITS/ML UNITS SQ SCH ×2 (06:53→22:46)
--- NOTE | 2018-09-29 08:43 | PN ---
Progress Note (short form) - Note Progress Note: Neurology History of Present Illness: 52 y/o woman who presented to the ED with complaints of N/V/D x 2 days now resolved, but reported having a decreased appetite and generalized malaise. Patient reported that she had stomach flu-like symptoms as well. Patient denies fever, dizziness, COX, CP, dysuria. I was consulted because of tremor that was reported and in speaking with nurse, the patient has underlying anxiety and restlessness. She can be irritable and aggitated, Now, more alert and over the weekend has been neurologically stable. Did complete CT head which did not show acute changes. Is being treated for UTI which can precipitate tremor. Also with underlying neuropathy. Is on xanax, no further medication added. Tremor improved with ongoing treatment of UTI. ID note reviewed, on Vanco, plan is for SNF placement. Tremor may wax and wane but has improved. Active Medications Acetaminophen (Tylenol -) 650 mg PO Q6H PRN PRN Reason: PAIN LEVEL 1-5 OR FEVER Last Admin: 09/28/18 23:04 Dose: 650 mg Alprazolam (Xanax -) 0.25 mg PO Q8H PRN PRN Reason: FOR ANXIETY Last Admin: 09/28/18 23:03 Dose: 0.25 mg Apixaban (Eliquis -) 5 mg PO BID [facility] Last Admin: 09/28/18 23:04 Dose: 5 mg Baclofen (Lioresal -) 20 mg PO TID [facility] Last Admin: 09/29/18 06:52 Dose: 20 mg Diltiazem HCl (Cardizem Cd -) 240 mg PO BID [facility] Last Admin: 09/28/18 23:03 Dose: 240 mg Doxepin HCl (Sinequan -) 25 mg PO DAILY [facility] Last Admin: 09/28/18 10:14 Dose: 25 mg Gabapentin 300 mg/ Gabapentin (200 mg) 500 mg PO TID [facility] Last Admin: 09/29/18 06:52 Dose: 500 mg Hydromorphone HCl (Dilaudid -) 4 mg PO Q8H PRN PRN Reason: PAIN LEVEL 6-10 Last Admin: 09/28/18 17:42 Dose: 4 mg IV Flush (Picc Line Flush) 8 ml IVPUSH PRN PRN PRN Reason: Protocol Vancomycin HCl (Vancomycin (Pre-Docked)) 1,000 mg in 250 mls @ 200 mls/hr IVPB DAILY@1500 [facility]; Protocol Last Admin: 09/28/18 15:01 Dose: 200 mls/hr Insulin Aspart (Novolog Vial Sliding Scale -) 1 vial SQ ACHS [facility]; Protocol Last Admin: 09/29/18 06:51 Dose: Not Given Insulin Detemir (Levemir Vial) 35 units SQ BID@0700,2200 [facility] Last Admin: 09/29/18 06:53 Dose: 35 units Levothyroxine Sodium (Synthroid -) 50 mcg PO DAILY@0700 [facility] Last Admin: 09/29/18 06:53 Dose: 50 mcg Loratadine (Claritin -) 10 mg PO [facility] Last Admin: 09/28/18 23:03 Dose: 10 mg Methylnaltrexone [place] (Relistor -) 12 mg SQ DAILY [facility] Last Admin: 09/28/18 10:15 Dose: 12 mg Montelukast Sodium (Singulair -) 10 mg PO [facility] Last Admin: 09/28/18 23:03 Dose: 10 mg Non-Formulary Medication (Mirabegron [Myrbetriq]) 50 mg PO DAILY [facility] Non-Formulary Medication (Vortioxetine Hydrobromide [Trintellix]) 20 mg PO DAILY [facility] Olanzapine (Zyprexa -) 5 mg PO BID [facility] Last Admin: 09/28/18 23:04 Dose: 5 mg Ondansetron HCl (Zofran Injection) 4 mg IVPUSH Q6H PRN PRN Reason: NAUSEA AND/OR VOMITING Last Admin: 09/22/18 21:55 Dose: 4 mg Ranitidine HCl (Zantac -) 300 mg PO DAILY [facility] Last Admin: 09/28/18 10:14 Dose: 300 mg Rosuvastatin Calcium (Crestor -) 10 mg PO HS [facility] Last Admin: 09/28/18 23:03 Dose: 10 mg Topiramate (Topamax -) 100 mg PO DAILY [facility] Last Admin: 09/28/18 10:14 Dose: 100 mg Venlafaxine HCl (Effexor Xr -) 75 mg PO DAILY@0800 [facility] Last Admin: 09/28/18 10:14 Dose: 75 mg Physical Examination Vital Signs: Vital Signs Period Temp Pulse Resp BP Sys/Dan Pulse Ox Last 24 Hr 98.4 F-100.2 F 98-125 18-22 92-126/62-88 98 Constitutional: Yes: No Distress, Calm, Obese Eyes: Yes: WNL, Conjunctiva Clear, EOM Intact, PERRL HENT: Yes: WNL, Atraumatic, Normocephalic Neck: Yes: Supple, Other (trach with collar) Cardiovascular: Yes: Pulse Irregular, S1, S2 Respiratory: Yes: Wheezes (bases), Other (trach with collar) Gastrointestinal: Yes: Normal Bowel Sounds, Soft, Abdomen, Obese, Tenderness ( LMQ) Renal/: Yes: WNL Breast(s): Yes: WNL Musculoskeletal: Yes: WNL Extremities: Yes: WNL Edema: No Peripheral Pulses WNL: Yes Integumentary: Yes: Tattoos Neurological: Yes: WNL, Alert, Oriented, Cran Nerves II-XII Intact, moves all extremities, no tremor noted, finger to nose intact CBCD WBC 11.6 K/mm3 (4.0-10.0) H 09/24/18 07:00 RBC 4.12 M/mm3 (3.60-5.2) 09/24/18 07:00 Hgb 8.7 GM/dL (10.7-15.3) L 09/24/18 07:00 Hct 31.0 % (32.4-45.2) L 09/24/18 07:00 MCV 75.3 fl (80-96) L 09/24/18 07:00 MCHC 27.9 g/dl (32.0-36.0) L 09/24/18 07:00 RDW 21.3 % (11.6-15.6) H 09/24/18 07:00 Plt Count 313 K/MM3 (134-434) 09/24/18 07:00 MPV 9.9 fl (7.5-11.1) 09/24/18 07:00 CMP Sodium 140 mmol/L (136-145) 09/24/18 06:30 Potassium 4.6 mmol/L (3.5-5.1) 09/24/18 06:30 Chloride 105 mmol/L (98-107) 09/24/18 06:30 Carbon Dioxide 26 mmol/L (21-32) 09/24/18 06:30 Anion Gap 9 MMOL/L (8-16) 09/24/18 06:30 BUN 9 mg/dL (7-18) 09/24/18 06:30 Creatinine 1.0 mg/dL (0.55-1.3) 09/24/18 06:30 Creat Clearance w eGFR 58.69 (>60) 09/24/18 06:30 Random Glucose 172 mg/dL (74-106) H 09/24/18 06:30 Calcium 8.3 mg/dL (8.5-10.1) L 09/24/18 06:30 Total Bilirubin 0.4 mg/dL (0.2-1) 09/24/18 06:30 AST 39 U/L (15-37) H 09/24/18 06:30 ALT 18 U/L (13-61) 09/24/18 06:30 Alkaline Phosphatase 175 U/L (45-117) H 09/24/18 06:30 Total Protein 5.9 g/dl (6.4-8.2) L 09/24/18 06:30 Albumin 2.0 g/dl (3.4-5.0) L 09/24/18 06:[address] head reviewed Plan 52 y/o woman who presented to the ED with complaints of N/V/D x 2 days now resolved, but reported having a decreased appetite and generalized malaise. Patient reported that she had stomach flu-like symptoms as well. Patient denies fever, dizziness, COX, CP, dysuria. I was consulted because of tremor that was reported and in speaking with nurse, the patient has underlying anxiety and restlessness. She can be irritable and aggitated, this AM was calm and cooperative for me. Did complete CT head which did not show acute changes. Is being treated for UTI which can precipitate tremor. Also with underlying neuropathy. Recommend continued Tx for UTI, defer to ID, note reviewed. Maintain adequate hydration. Tremor has been stable with treatment for UTI. Has hypothyroid, monitor TSH and thyroid levels, as hyperthyroid can precipitate this as well. Monitor glucose, maintain normal range. Avoid hypo/ hyperglycemia. ID note reviewed, remains on Vanco, plan is for outpatient Abx completion of 28 day course. No objection to this, neurologically stable.
--- NOTE | 2018-09-29 08:48 | CON.ENT ---
Consult Consult Specialty:: ENT Referred by:: Dr. Capps Reason for Consultation:: trach - History of Present Illness Chief Complaint: per nursing staff patient has been pulling her tracheotomy tube out History of Present Illness: 52 yo F admitted with nausea, vomiting, diarrhea. Sepsis, hx respiratory failure, COPD with acute exacerbation. presently has a tracheotomy tube in place , which is secure, pt is using Passy [place] valve successfully. review of progress notes does not identify a specific concern, but per nursing staff report, pt has been intermittently removing her tracheotomy tube. Discharge is anticipated soon, yesterday when going down for PICC line pt removed her tube, was reinserted, CXR shows good position. - History Source History Provided By: Medical Record Limitations to Obtaining History: Clinical Condition - Past Medical History Cardio/Vascular: Yes: AFIB (Paroxysmal), HTN, Hyperlipdemia Pulmonary: Yes: Asthma, COPD, O2 Dependent, Previously Intubated Gastrointestinal: Yes: GI Bleed Renal/: Yes: Cancer (Uterine), Other (ST[place] in the past) Infectious Disease: Yes: C-Diff (june 2014), Other (Osteomyelitis of thoracic spine) Psych: Yes: Anxiety, Bipolar, Depression Musculoskeletal: Yes: Chronic low back pain, Other (multiple vertebral fractures ) Endocrine: Yes: Diabetes Mellitus, Hypothyroidism Additional Medical History: Frequent c/o abdominal pain-extensive w/u in the past negative. Presumed adhesions from prior surgeries. - Past Surgical History Past Surgical History: Yes: Appendectomy, Colectomy (By description, right colon resection with anastamosis noted on colonoscopy 2013), Hysterectomy (ADE/ BSO), Stent - Alcohol/Substance Use Hx Alcohol Use: No - Smoking History Smoking history: Former smoker Have you smoked in the past 12 months: No Aproximately how many cigarettes per day: 3 If you are a former smoker, when did you quit?: 2014 - Social History Usual Living Arrangement: With Parent 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) History of Recent Travel: No Home Medications - Allergies Allergies/Adverse Reactions: Allergies Allergy/AdvReac Type Severity Reaction Status Date / Time oxycodone [Oxycodone] Allergy Severe Nausea Verified 09/18/18 15:33 oxycodone HCl [From Percocet] Allergy Severe Nausea Verified 09/18/18 15:33 aspirin Allergy Mild Verified 09/18/18 15:33 blueberry [Blueberry] Allergy Mild Swelling Verified 09/18/18 15:33 fentanyl Allergy Mild Vomiting Verified 09/18/18 15:33 ibuprofen Allergy Swelling Verified 09/18/18 15:33 - Home Medications Home Medications: Ambulatory Orders Albuterol Sulfate Inhaler - [Ventolin HFA Inhaler -] 2 puff IH Q4H PRN #0 inhaler 11/29/16 Acetaminophen [Tylenol .Regular Strength -] 650 mg PO Q6H PRN #0 tablet Apixaban [Eliquis -] 5 mg PO BID tablet 04/29/17 Baclofen 20 mg PO TID 07/09/18 Diltiazem HCl [Diltiazem 24Hr Cd] 240 mg PO BID 07/09/18 Levocetirizine Dihydrochloride 5 mg PO HS 07/09/18 Levothyroxine [Synthroid -] 50 mcg PO DAILY 07/09/18 Rosuvastatin Calcium [Crestor] 10 mg PO DAILY 07/09/18 Venlafaxine HCl ER [Effexor Xr -] 75 mg PO DAILY 07/09/18 Famotidine 40 mg PO BID 08/07/18 Hydromorphone HCl 4 mg PO Q4H 08/07/18 Mirabegron [Myrbetriq] 50 mg PO DAILY 08/07/18 Montelukast Na [Singulair -] 10 mg PO HS 08/07/18 Alprazolam [Xanax] 0.25 mg PO TID #15 tablet MDD 3 08/15/18 Doxepin HCl [Sinequan -] 25 mg PO DAILY #30 capsule 08/15/18 Linaclotide [Linzess] 145 mcg PO DAILY #30 cap 08/15/18 Pantoprazole Sodium [Protonix -] 40 mg PO DAILY #30 tablet.ec 08/15/18 Topiramate [Topamax -] 100 mg PO DAILY #30 tablet 08/15/18 Vortioxetine Hydrobromide [Trintellix] 20 mg PO DAILY #30 tablet 08/15/18 Gabapentin [Neurontin -] 500 mg PO Q8H #21 capsule 08/30/18 Insulin (Novolog) [Novolog -] 0 units SQ AC 08/30/18 Ondansetron [Zofran -] 8 mg PO TID 08/30/18 Zolpidem Tartrate 10 mg PO HS MDD 1 09/04/18 Gabapentin [Neurontin -] 500 mg PO TID #90 capsule 09/08/18 Nitrofurantoin Monohyd/M-Cryst [Macrobid -] 100 mg PO BID #14 capsule 09/08/18 Ondansetron [Ondansetron Odt] 8 mg PO TID #90 tab.rapdis 09/09/18 Phenazopyridine HCl [Pyridium -] 100 mg PO ONCE #6 tablet 09/15/18 Fluconazole [Diflucan -] 200 mg PO DAILY #7 tablet 09/18/18 Family Disease History - Family Disease History Family Disease History: Diabetes: Mother (Alive: heart surgery), Heart Disease: Mother, [place]: Father (: leukemia), Other: Brother (2,Healthy), Sister (1, Healthy) Physical Exam-ENT Vital Signs: Vital Signs Temperature 98.4 F 09/29/18 06:32 Pulse Rate 125 H 09/29/18 06:32 Respiratory Rate 20 09/29/18 06:32 Blood Pressure 108/62 09/29/18 06:32 O2 Sat by Pulse Oximetry (%) 98 09/28/18 09:00 Constitutional: Yes: No Distress Head: Yes: WNL Face: Yes: Other (cushingoid) Eyes: Yes: WNL Nose: Yes: WNL Nasal Passage: Yes: WNL Oral/Pharynx: Yes: WNL Outer Ear: Yes: WNL, Other (external ears normal, NO mastoid swelling or tenderness) Neck: Yes: Other (tracheotomy tube in place, secure and functioning with Passy- [place] valve. dry dressing with sl blood noted) Imaging - Results Chest X-ray: Report Reviewed, Image Reviewed Cat Scan: Report Reviewed, Image Reviewed (CT scan shows some mastoid effusion, left greater than right, also present on November 2016 scan, not present on November 2015 scan, no evidence of bony erosion, paranasal sinuses well aerated) Problem List - Problems (1) Tracheostomy in place Assessment/Plan: pt has a Portex trachetomy tube in place, chronic, with trach collar O2 and Passy [place] Valve in place. date of insertion not clear, operative report from 2016 (Dr. Pan) found by report pt has been intermittantly pulling out her tracheotomy tube presently in place, functioning well clinically and last CXR demonstrates good position internally Recommend: continue trach care secure tube Thank you for consultation, Jose L Fischer MD FACS Code(s): Z93.0 - TRACHEOSTOMY STATUS
--- NOTE | 2018-09-29 09:16 | PN ---
Progress Note, Physician Chief Complaint: PATIENT C/O HEARING LOSS SEEN BY ENT TODAY PATIENT IS HAVING A FULL CONVERSATION WITH ME. DENIES CP/SOB - Current Medication List Current Medications: Active Medications Acetaminophen (Tylenol -) 650 mg PO Q6H PRN PRN Reason: PAIN LEVEL 1-5 OR FEVER Last Admin: 09/28/18 23:04 Dose: 650 mg Alprazolam (Xanax -) 0.25 mg PO Q8H PRN PRN Reason: FOR ANXIETY Last Admin: 09/28/18 23:03 Dose: 0.25 mg Apixaban (Eliquis -) 5 mg PO BID [facility] Last Admin: 09/28/18 23:04 Dose: 5 mg Baclofen (Lioresal -) 20 mg PO TID [facility] Last Admin: 09/29/18 06:52 Dose: 20 mg Diltiazem HCl (Cardizem Cd -) 240 mg PO BID [facility] Last Admin: 09/28/18 23:03 Dose: 240 mg Doxepin HCl (Sinequan -) 25 mg PO DAILY [facility] Last Admin: 09/28/18 10:14 Dose: 25 mg Gabapentin 300 mg/ Gabapentin (200 mg) 500 mg PO TID [facility] Last Admin: 09/29/18 06:52 Dose: 500 mg Hydromorphone HCl (Dilaudid -) 4 mg PO Q8H PRN PRN Reason: PAIN LEVEL 6-10 Last Admin: 09/28/18 17:42 Dose: 4 mg IV Flush (Picc Line Flush) 8 ml IVPUSH PRN PRN PRN Reason: Protocol Vancomycin HCl (Vancomycin (Pre-Docked)) 1,000 mg in 250 mls @ 200 mls/hr IVPB DAILY@1500 [facility]; Protocol Last Admin: 09/28/18 15:01 Dose: 200 mls/hr Insulin Aspart (Novolog Vial Sliding Scale -) 1 vial SQ ACHS [facility]; Protocol Last Admin: 09/29/18 06:51 Dose: Not Given Insulin Detemir (Levemir Vial) 35 units SQ BID@0700,2200 [facility] Last Admin: 09/29/18 06:53 Dose: 35 units Levothyroxine Sodium (Synthroid -) 50 mcg PO DAILY@0700 [facility] Last Admin: 09/29/18 06:53 Dose: 50 mcg Loratadine (Claritin -) 10 mg PO HS [facility] Last Admin: 09/28/18 23:03 Dose: 10 mg Methylnaltrexone [place] (Relistor -) 12 mg SQ DAILY [facility] Last Admin: 09/28/18 10:15 Dose: 12 mg Montelukast Sodium (Singulair -) 10 mg PO HS [facility] Last Admin: 09/28/18 23:03 Dose: 10 mg Non-Formulary Medication (Mirabegron [Myrbetriq]) 50 mg PO DAILY [facility] Non-Formulary Medication (Vortioxetine Hydrobromide [Trintellix]) 20 mg PO DAILY [facility] Olanzapine (Zyprexa -) 5 mg PO BID [facility] Last Admin: 09/28/18 23:04 Dose: 5 mg Ondansetron HCl (Zofran Injection) 4 mg IVPUSH Q6H PRN PRN Reason: NAUSEA AND/OR VOMITING Last Admin: 09/22/18 21:55 Dose: 4 mg Ranitidine HCl (Zantac -) 300 mg PO DAILY [facility] Last Admin: 09/28/18 10:14 Dose: 300 mg Rosuvastatin Calcium (Crestor -) 10 mg PO [facility] Last Admin: 09/28/18 23:03 Dose: 10 mg Topiramate (Topamax -) 100 mg PO DAILY [facility] Last Admin: 09/28/18 10:14 Dose: 100 mg Venlafaxine HCl (Effexor Xr -) 75 mg PO DAILY@0800 [facility] Last Admin: 09/28/18 10:14 Dose: 75 mg - Objective Vital Signs: Vital Signs Temperature 98.4 F 09/29/18 06:32 Pulse Rate 125 H 09/29/18 06:32 Respiratory Rate 20 09/29/18 06:32 Blood Pressure 108/62 09/29/18 06:32 O2 Sat by Pulse Oximetry (%) 98 09/28/18 09:00 Constitutional: Yes: Mild Distress Eyes: Yes: WNL HENT: Yes: WNL Neck: Yes: WNL Cardiovascular: Yes: WNL Respiratory: Yes: CTA Bilaterally (TRACHEOSTOMY) Gastrointestinal: Yes: Soft, Abdomen, Obese Genitourinary: Yes: Incontinence Musculoskeletal: Yes: Muscle Weakness Edema: No Labs: CBC, BMP 09/24/18 07:00 09/24/18 06:30 Problem List - Problems (1) Elevated lactic acid level Code(s): R79.89 - OTHER SPECIFIED ABNORMAL FINDINGS OF BLOOD CHEMISTRY (2) Sepsis Code(s): A41.9 - SEPSIS, UNSPECIFIED ORGANISM (3) UTI (urinary tract infection) Code(s): N39.0 - URINARY TRACT INFECTION, SITE NOT SPECIFIED (4) Abdominal pain Code(s): R10.9 - UNSPECIFIED ABDOMINAL PAIN (5) Acute and chronic respiratory failure with hypoxia Code(s): J96.21 - ACUTE AND CHRONIC RESPIRATORY FAILURE WITH HYPOXIA (6) Anemia Code(s): D64.9 - ANEMIA, UNSPECIFIED (7) Chronic respiratory failure Code(s): J96.10 - CHRONIC RESPIRATORY FAILURE, UNSP W HYPOXIA OR HYPERCAPNIA (8) Diabetes Code(s): E11.9 - TYPE 2 DIABETES MELLITUS WITHOUT COMPLICATIONS (9) Hypothyroid Code(s): E03.9 - HYPOTHYROIDISM, UNSPECIFIED Qualifiers: Hypothyroidism type: unspecified Qualified Code(s): E03.9 - Hypothyroidism , unspecified (10) Anxiety Code(s): F41.9 - ANXIETY DISORDER, UNSPECIFIED (11) Bipolar 2 disorder Code(s): F31.81 - BIPOLAR II DISORDER (12) COPD (chronic obstructive pulmonary disease) Code(s): J44.9 - CHRONIC OBSTRUCTIVE PULMONARY DISEASE, UNSPECIFIED Qualifiers: COPD type: unspecified COPD Qualified Code(s): J44.9 - Chronic obstructive pulmonary disease, unspecified (13) Depression with anxiety Code(s): F41.8 - OTHER SPECIFIED ANXIETY DISORDERS (14) Diabetes mellitus, insulin dependent (IDDM), uncontrolled Code(s): E10.65 - TYPE 1 DIABETES MELLITUS WITH HYPERGLYCEMIA (15) Neuropathy Code(s): G62.9 - POLYNEUROPATHY, UNSPECIFIED (16) Paroxysmal atrial fibrillation Code(s): I48.0 - PAROXYSMAL ATRIAL FIBRILLATION Assessment/Plan DC PLANNING TO [facility] WHEN BED AVAILABLE ENT F/U CORTISPORIN EARDROPS QID VANCOMYCIN CAN CAUSE HEARING LOSS WILL HAVE ID AND ENT DISCUSS THIS PLAN FULL HEARING TEST OUTPATIENT
[2018-09-29] MEDS ORDERED: PT OWN MED DRAWER 7, Y5N ONE ×4 (10:27→18:11)
[2018-09-29] MEDS: APIXABAN 5 MG TABLET PO SCH ×2 (10:48→22:12)
[2018-09-29] MEDS: RANITIDINE HCL 150 MG TABLET (FP) PO SCH (10:48)
[2018-09-29 10:49] LABS: ANION GAP 8 MMOL/L (8-16); BLOOD UREA NITROGEN 17 mg/dL (7-18); CALCIUM 8.1 mg/dL (8.5-10.1); CHLORIDE 108 mmol/L (98-107); CO2 28 mmol/L (21-32); CREATININE 1.6 mg/dL (0.55-1.3); GLUCOSE,RANDOM 179 mg/dL (74-106); POTASSIUM 4.1 mmol/L (3.5-5.1); SODIUM 144 mmol/L (136-145)
[2018-09-29] MEDS: Methylnaltrexone Bromide 12 MG/0.6 ML KIT SQ SCH (10:50)
[2018-09-29] MEDS: VENLAFAXINE HCL 75 MG E.R. CAPSULES (FP) PO SCH (10:50)
[2018-09-29 10:51] LABS: HEMATOCRIT 27.7 % (32.4-45.2); MCH 21.5 pg (25.7-33.7); MCHC 28.7 g/dl (32.0-36.0); MEAN CELL VOLUME 74.7 fl (80-96); MEAN PLT VOLUME 9.4 fl (7.5-11.1); PLATELET COUNT 321 K/MM3 (134-434); RBC 3.71 M/mm3 (3.60-5.2); RDW 21.7 % (11.6-15.6); WHITE BLOOD COUNT 11.2 K/mm3 (4.0-10.0)
[2018-09-29] MEDS: TOPIRAMATE 100 MG TABLET PO SCH (10:51)
[2018-09-29] MEDS: OLANZapine 5 MG TABLET PO SCH ×2 (10:51→22:43)
[2018-09-29] MEDS: DOXEPIN HCL 25 MG CAPSULE PO SCH (10:51)
[2018-09-29] MEDS ORDERED: INSULIN (NOVOLOG) ASPART 100 UNITS/ML 10ML VIAL ONE ×2 (12:03→18:31)
[2018-09-29] MEDS: NEOMYCIN/POLYMYXN/HC OTIC SOLUTION 10 ML BOTTLE AD SCH ×2 (12:06→18:19)
[2018-09-29] MEDS ORDERED: ALBUTEROL SO4 0.083% IH SOL 2.5 MG/3 ML VIAL.NEB. NEB PRN (12:45)
[2018-09-29] MEDS: VANCOMYCIN 1 GRAM (PRE-DOCKED) 1,000 MG/250 ML BAG IVPB SCH (14:04)
--- NOTE | 2018-09-29 16:26 | PN ---
Progress Note, Physician History of Present Illness: PULMONARY ALERT,CONFUSED,CONGESTED - Current Medication List Current Medications: Active Medications Acetaminophen (Tylenol -) 650 mg PO Q6H PRN PRN Reason: PAIN LEVEL 1-5 OR FEVER Last Admin: 09/28/18 23:04 Dose: 650 mg Albuterol Sulfate (Ventolin 0.083% Nebulizer Soln -) 1 amp NEB Q4H PRN PRN Reason: SHORT OF BREATH/WHEEZING Last Admin: 09/29/18 13:05 Dose: 1 amp Alprazolam (Xanax -) 0.25 mg PO Q8H PRN PRN Reason: FOR ANXIETY Last Admin: 09/28/18 23:03 Dose: 0.25 mg Apixaban (Eliquis -) 5 mg PO BID [facility] Last Admin: 09/29/18 10:48 Dose: 5 mg Baclofen (Lioresal -) 20 mg PO TID [facility] Last Admin: 09/29/18 14:04 Dose: 20 mg Diltiazem HCl (Cardizem Cd -) 240 mg PO BID [facility] Last Admin: 09/29/18 10:48 Dose: 240 mg Doxepin HCl (Sinequan -) 25 mg PO DAILY [facility] Last Admin: 09/29/18 10:51 Dose: 25 mg Gabapentin 300 mg/ Gabapentin (200 mg) 500 mg PO TID [facility] Last Admin: 09/29/18 14:04 Dose: 500 mg IV Flush (Picc Line Flush) 8 ml IVPUSH PRN PRN PRN Reason: Protocol Vancomycin HCl (Vancomycin (Pre-Docked)) 1,000 mg in 250 mls @ 200 mls/hr IVPB DAILY@1500 [facility]; Protocol Last Admin: 09/29/18 14:04 Dose: 200 mls/hr Insulin Aspart (Novolog Vial Sliding Scale -) 1 vial SQ ACHS [facility]; Protocol Last Admin: 09/29/18 12:07 Dose: Not Given Insulin Detemir (Levemir Vial) 35 units SQ BID@0700,2200 [facility] Last Admin: 09/29/18 06:53 Dose: 35 units Levothyroxine Sodium (Synthroid -) 50 mcg PO DAILY@0700 [facility] Last Admin: 09/29/18 06:53 Dose: 50 mcg Loratadine (Claritin -) 10 mg PO HS [facility] Last Admin: 09/28/18 23:03 Dose: 10 mg Methylnaltrexone [place] (Relistor -) 12 mg SQ DAILY [facility] Last Admin: 09/29/18 10:50 Dose: 12 mg Montelukast Sodium (Singulair -) 10 mg PO HS [facility] Last Admin: 09/28/18 23:03 Dose: 10 mg Neomycin/Polymyxin/Hydrocortisone (Cortisporin Otic Solution -) 4 drop AD Q6HPO [facility] Last Admin: 09/29/18 12:06 Dose: 4 drop Non-Formulary Medication (Mirabegron [Myrbetriq]) 50 mg PO DAILY [facility] Non-Formulary Medication (Vortioxetine Hydrobromide [Trintellix]) 20 mg PO DAILY [facility] Olanzapine (Zyprexa -) 5 mg PO BID [facility] Last Admin: 09/29/18 10:51 Dose: 5 mg Ondansetron HCl (Zofran Injection) 4 mg IVPUSH Q6H PRN PRN Reason: NAUSEA AND/OR VOMITING Last Admin: 09/22/18 21:55 Dose: 4 mg Ranitidine HCl (Zantac -) 300 mg PO DAILY [facility] Last Admin: 09/29/18 10:48 Dose: 300 mg Rosuvastatin Calcium (Crestor -) 10 mg PO [facility] Last Admin: 09/28/18 23:03 Dose: 10 mg Topiramate (Topamax -) 100 mg PO DAILY [facility] Last Admin: 09/29/18 10:51 Dose: 100 mg Venlafaxine HCl (Effexor Xr -) 75 mg PO DAILY@0800 [facility] Last Admin: 09/29/18 10:50 Dose: 75 mg - Objective Vital Signs: Vital Signs Temperature 98.2 F 09/29/18 15:31 Pulse Rate 84 09/29/18 15:31 Respiratory Rate 18 09/29/18 15:31 Blood Pressure 118/78 09/29/18 15:31 O2 Sat by Pulse Oximetry (%) 98 09/28/18 09:00 Constitutional: Yes: Calm, Obese Eyes: Yes: WNL HENT: Yes: WNL Neck: Yes: WNL Cardiovascular: Yes: Pulse Irregular, S1, S2 Respiratory: Yes: Rhonchi (TAO RHONCHI) Gastrointestinal: Yes: Normal Bowel Sounds, Soft Extremities: Yes: WNL Edema: No Labs: CBC, BMP 09/29/18 10:00 11/07/18 10:00 Problem List - Problems (1) Sepsis Code(s): A41.9 - SEPSIS, UNSPECIFIED ORGANISM (2) Acute and chronic respiratory failure with hypoxia Code(s): J96.21 - ACUTE AND CHRONIC RESPIRATORY FAILURE WITH HYPOXIA (3) Chronic respiratory failure with hypoxia Code(s): J96.11 - CHRONIC RESPIRATORY FAILURE WITH HYPOXIA (4) Diabetes mellitus Code(s): E11.9 - TYPE 2 DIABETES MELLITUS WITHOUT COMPLICATIONS Qualifiers: Diabetes mellitus type: type 2 (5) HTN (hypertension) Code(s): I10 - ESSENTIAL (PRIMARY) HYPERTENSION Qualifiers: Assessment/Plan Problem List - Problems (1) UTI (urinary tract infection) Code(s): N39.0 - URINARY TRACT INFECTION, SITE NOT SPECIFIED (2) Pneumonia Code(s): J18.9 - PNEUMONIA, UNSPECIFIED ORGANISM Qualifiers: Pneumonia type: due to unspecified organism Laterality: unspecified laterality Lung location: unspecified part of lung Qualified Code(s): J18.9 - Pneumonia, unspecified organism Assessment/Plan UTI R/O Pneumonia Chronic Hypoxic and Hypercapneic Respiratory Failure Asthma/COPD HTN Paroxysmal Atrial Fibrillation DM Hypothyroidism Chronic Pain - continue antibiotics per ID - repeat CXR - inhaled bronchodilators standing and PRN - O2 to keep Spo2 >90% - tracheal suctioning - rate controlled - anticoagulation - abg DR RUFFIN
[2018-09-29 16:58] LABS: ARTERIAL BLD GAS O2 SATURATION 97.2 % (90-98.9); ARTERIAL BLOOD GAS BASE EXCESS 1.8 meq/l (-2-2); ARTERIAL BLOOD GAS PCO2 56.3 mmHg (35-45); ARTERIAL BLOOD GAS pH 7.32 (7.35-7.45)
[2018-09-29 17:09] LABS: ALLENS TEST POSITIVE
[2018-09-29] MEDS: ROSUVASTATIN CA 10 MG TABLET (FP) PO SCH (22:12)
[2018-09-29] MEDS: LORATADINE 10 MG TABLET PO SCH (22:12)
[2018-09-29] MEDS: MONTELUKAST NA 10 MG TABLET PO SCH (22:12)
[2018-09-30] MEDS ORDERED: PT OWN MED DRAWER 7, Y5N ONE ×4 (00:19→11:50)
[2018-09-30] MEDS: NEOMYCIN/POLYMYXN/HC OTIC SOLUTION 10 ML BOTTLE AD SCH ×4 (00:22→17:12)
[2018-09-30] MEDS ORDERED: GABAPENTIN 100 MG CAPSULE (FP) ONE ×3 (06:40→21:58)
[2018-09-30] MEDS ORDERED: GABAPENTIN 300 MG CAPSULE (FP) ONE ×3 (06:40→21:58)
[2018-09-30] MEDS: BACLOFEN 10 MG TABLET (FP) PO SCH ×3 (06:51→22:09)
[2018-09-30] MEDS: GABAPENTIN 300 MG, GABAPENTIN 200 MG PO SCH ×3 (06:52→22:09)
[2018-09-30] MEDS: LEVOTHYROXINE NA 50 MCG TABLET (FP) PO SCH (06:52)
[2018-09-30] MEDS: INSULIN SLIDING SCALE (NOVOLOG) 1 VIAL SQ SCH ×4 (06:53→22:11)
[2018-09-30] MEDS: INSULIN (LEVEMIR) 100 UNITS/ML UNITS SQ SCH ×2 (06:54→22:11)
[2018-09-30] MEDS: ALPRAZolam 0.25 MG TABLET PO PRN (07:10)
[2018-09-30] MEDS: VENLAFAXINE HCL 75 MG E.R. CAPSULES (FP) PO SCH (08:32)
--- NOTE | 2018-09-30 09:12 | PN ---
Progress Note (short form) - Note Progress Note: Neurology History of Present Illness: 52 y/o woman who presented to the ED with complaints of N/V/D x 2 days now resolved, but reported having a decreased appetite and generalized malaise. Patient reported that she had stomach flu-like symptoms as well. Patient denies fever, dizziness, COX, CP, dysuria. I was consulted because of tremor that was reported and in speaking with nurse, the patient has underlying anxiety and restlessness. She can be irritable and aggitated, Now, more alert and over the weekend has been neurologically stable. Did complete CT head which did not show acute changes. Is being treated for UTI which can precipitate tremor. Also with underlying neuropathy. Is on xanax, no further medication added. Tremor improved with ongoing treatment of UTI. ID note reviewed, on , plan is for SNF placement. Tremor may wax and wane but has improved. Awaiting placement, discussed with nursing staff. Active Medications Acetaminophen (Tylenol -) 650 mg PO Q6H PRN PRN Reason: PAIN LEVEL 1-5 OR FEVER Last Admin: 09/28/18 23:04 Dose: 650 mg Albuterol Sulfate (Ventolin 0.083% Nebulizer Soln -) 1 amp NEB Q4H PRN PRN Reason: SHORT OF BREATH/WHEEZING Last Admin: 09/29/18 13:05 Dose: 1 amp Alprazolam (Xanax -) 0.25 mg PO Q8H PRN PRN Reason: FOR ANXIETY Last Admin: 09/30/18 07:10 Dose: 0.25 mg Apixaban (Eliquis -) 5 mg PO BID [facility] Last Admin: 09/29/18 22:12 Dose: 5 mg Baclofen (Lioresal -) 20 mg PO TID [facility] Last Admin: 09/30/18 06:51 Dose: 20 mg Diltiazem HCl (Cardizem Cd -) 240 mg PO BID [facility] Last Admin: 09/29/18 22:12 Dose: 240 mg Doxepin HCl (Sinequan -) 25 mg PO DAILY [facility] Last Admin: 09/29/18 10:51 Dose: 25 mg Gabapentin 300 mg/ Gabapentin (200 mg) 500 mg PO TID [facility] Last Admin: 09/30/18 06:52 Dose: 500 mg Hydromorphone HCl (Dilaudid -) 4 mg PO Q8H PRN PRN Reason: PAIN LEVEL 6-10 IV Flush (Picc Line Flush) 8 ml IVPUSH PRN PRN PRN Reason: Protocol Vancomycin HCl (Vancomycin (Pre-Docked)) 1,000 mg in 250 mls @ 200 mls/hr IVPB DAILY@1500 [facility]; Protocol Last Admin: 09/29/18 14:04 Dose: 200 mls/hr Insulin Aspart (Novolog Vial Sliding Scale -) [address] [facility]; Protocol Last Admin: 09/30/18 06:53 Dose: Not Given Insulin Detemir (Levemir Vial) 35 units SQ BID@0700,2200 [facility] Last Admin: 09/30/18 06:54 Dose: 35 units Levothyroxine Sodium (Synthroid -) 50 mcg PO DAILY@0700 [facility] Last Admin: 09/30/18 06:52 Dose: 50 mcg Loratadine (Claritin -) 10 mg PO [facility] Last Admin: 09/29/18 22:12 Dose: 10 mg Methylnaltrexone [place] (Relistor -) 12 mg SQ DAILY [facility] Last Admin: 09/29/18 10:50 Dose: 12 mg Montelukast Sodium (Singulair -) 10 mg PO [facility] Last Admin: 09/29/18 22:12 Dose: 10 mg Neomycin/Polymyxin/Hydrocortisone (Cortisporin Otic Solution -) 4 drop AD Q6HPO [facility] Last Admin: 09/30/18 06:52 Dose: 4 drop Non-Formulary Medication (Mirabegron [Myrbetriq]) 50 mg PO DAILY [facility] Non-Formulary Medication (Vortioxetine Hydrobromide [Trintellix]) 20 mg PO DAILY [facility] Olanzapine (Zyprexa -) 5 mg PO BID [facility] Last Admin: 09/29/18 22:43 Dose: 5 mg Ondansetron HCl (Zofran Injection) 4 mg IVPUSH Q6H PRN PRN Reason: NAUSEA AND/OR VOMITING Last Admin: 09/22/18 21:55 Dose: 4 mg Ranitidine HCl (Zantac -) 300 mg PO DAILY [facility] Last Admin: 09/29/18 10:48 Dose: 300 mg Rosuvastatin Calcium (Crestor -) 10 mg PO [facility] Last Admin: 09/29/18 22:12 Dose: 10 mg Topiramate (Topamax -) 100 mg PO DAILY [facility] Last Admin: 09/29/18 10:51 Dose: 100 mg Venlafaxine HCl (Effexor Xr -) 75 mg PO DAILY@0800 [facility] Last Admin: 09/30/18 08:32 Dose: 75 mg Physical Examination Vital Signs: Vital Signs Period Temp Pulse Resp BP Sys/Dan Pulse Ox Last 24 Hr 98.2 F-98.9 F 84-127 16-18 116-133/73-85 Constitutional: Yes: No Distress, Calm, Obese Eyes: Yes: WNL, Conjunctiva Clear, EOM Intact, PERRL HENT: Yes: WNL, Atraumatic, Normocephalic Neck: Yes: Supple, Other (trach with collar) Cardiovascular: Yes: Pulse Irregular, S1, S2 Respiratory: Yes: Wheezes (bases), Other (trach with collar) Gastrointestinal: Yes: Normal Bowel Sounds, Soft, Abdomen, Obese, Tenderness ( LMQ) Renal/: Yes: WNL Breast(s): Yes: WNL Musculoskeletal: Yes: WNL Extremities: Yes: WNL Edema: No Peripheral Pulses WNL: Yes Integumentary: Yes: Tattoos Neurological: Yes: WNL, Alert, Oriented, Cran Nerves II-XII Intact, moves all extremities, no tremor noted, finger to nose intact CBCD WBC 11.2 K/mm3 (4.0-10.0) H 09/29/18 10:00 RBC 3.71 M/mm3 (3.60-5.2) 09/29/18 10:00 Hgb 8.0 GM/dL (10.7-15.3) L 09/29/18 10:00 Hct 27.7 % (32.4-45.2) L 09/29/18 10:00 MCV 74.7 fl (80-96) L 09/29/18 10:00 MCHC 28.7 g/dl (32.0-36.0) L 09/29/18 10:00 RDW 21.7 % (11.6-15.6) H 09/29/18 10:00 Plt Count 321 K/MM3 (134-434) 09/29/18 10:00 MPV 9.4 fl (7.5-11.1) 11/07/18 10:00 CMP Sodium 144 mmol/L (136-145) 09/29/18 10:00 Potassium 4.1 mmol/L (3.5-5.1) 09/29/18 10:00 Chloride 108 mmol/L (98-107) H 09/29/18 10:00 Carbon Dioxide 28 mmol/L (21-32) 09/29/18 10:00 Anion Gap 8 MMOL/L (8-16) 09/29/18 10:00 BUN 17 mg/dL (7-18) 09/29/18 10:00 Creatinine 1.6 mg/dL (0.55-1.3) H 09/29/18 10:00 Creat Clearance w eGFR 34.12 (>60) 09/29/18 10:00 Random Glucose 179 mg/dL (74-106) H 09/29/18 10:00 Calcium 8.1 mg/dL (8.5-10.1) L 09/29/18 10:00 Total Bilirubin 0.4 mg/dL (0.2-1) 09/24/18 06:30 AST 39 U/L (15-37) H 09/24/18 06:30 ALT 18 U/L (13-61) 09/24/18 06:30 Alkaline Phosphatase 175 U/L (45-117) H 09/24/18 06:30 Total Protein 5.9 g/dl (6.4-8.2) L 09/24/18 06:30 Albumin 2.0 g/dl (3.4-5.0) L 09/24/18 06:[address] head reviewed Plan 52 y/o woman who presented to the ED with complaints of N/V/D x 2 days now resolved, but reported having a decreased appetite and generalized malaise. Patient reported that she had stomach flu-like symptoms as well. Patient denies fever, dizziness, COX, CP, dysuria. I was consulted because of tremor that was reported and in speaking with nurse, the patient has underlying anxiety and restlessness. She can be irritable and aggitated, this AM was calm and cooperative for me. Did complete CT head which did not show acute changes. Is being treated for UTI which can precipitate tremor. Also with underlying neuropathy. Recommend continued Tx for UTI, defer to ID, note reviewed. Maintain adequate hydration. Tremor has been stable with treatment for UTI. Has hypothyroid, monitor TSH and thyroid levels, as hyperthyroid can precipitate this as well. Monitor glucose, maintain normal range. Avoid hypo/ hyperglycemia. ID note reviewed, remains on Vanco, plan is for outpatient Abx completion of 28 day course. No objection to this, neurologically stable. Awaiting placement, discussed with nursing staff.
--- NOTE | 2018-09-30 09:43 | PN ---
Progress Note (short form) - Note Progress Note: PULMONARY Agitated but denies shortness of breath or chest pain. No fevers recorded. Vital Signs Period Temp Pulse Resp BP Sys/Dan Pulse Ox Last 24 Hr 98.2 F-98.9 F 84-127 - 116-133/73-85 Gen: NAD at rest Heart: RRR Lung: decreased breath sounds at the bases Abd: soft, nontender Ext: no edema CBC, BMP 09/29/18 10:00 09/29/18 10:00 Active Medications Acetaminophen (Tylenol -) 650 mg PO Q6H PRN PRN Reason: PAIN LEVEL 1-5 OR FEVER Last Admin: 09/28/18 23:04 Dose: 650 mg Albuterol Sulfate (Ventolin 0.083% Nebulizer Soln -) 1 amp NEB Q4H PRN PRN Reason: SHORT OF BREATH/WHEEZING Last Admin: 09/29/18 13:05 Dose: 1 amp Alprazolam (Xanax -) 0.25 mg PO Q8H PRN PRN Reason: FOR ANXIETY Last Admin: 09/30/18 07:10 Dose: 0.25 mg Apixaban (Eliquis -) 5 mg PO BID [facility] Last Admin: 09/29/18 22:12 Dose: 5 mg Baclofen (Lioresal -) 20 mg PO TID [facility] Last Admin: 09/30/18 06:51 Dose: 20 mg Diltiazem HCl (Cardizem Cd -) 240 mg PO BID [facility] Last Admin: 09/29/18 22:12 Dose: 240 mg Doxepin HCl (Sinequan -) 25 mg PO DAILY [facility] Last Admin: 09/29/18 10:51 Dose: 25 mg Gabapentin 300 mg/ Gabapentin (200 mg) 500 mg PO TID [facility] Last Admin: 09/30/18 06:52 Dose: 500 mg Hydromorphone HCl (Dilaudid -) 4 mg PO Q8H PRN PRN Reason: PAIN LEVEL 6-10 IV Flush (Picc Line Flush) 8 ml IVPUSH PRN PRN PRN Reason: Protocol Vancomycin HCl (Vancomycin (Pre-Docked)) 1,000 mg in 250 mls @ 200 mls/hr IVPB DAILY@1500 [facility]; Protocol Last Admin: 09/29/18 14:04 Dose: 200 mls/hr Insulin Aspart (Novolog Vial Sliding Scale -) 1 vial SQ [facility]; Protocol Last Admin: 09/30/18 06:53 Dose: Not Given Insulin Detemir (Levemir Vial) 35 units SQ BID@0700,2200 [facility] Last Admin: 09/30/18 06:54 Dose: 35 units Levothyroxine Sodium (Synthroid -) 50 mcg PO DAILY@0700 [facility] Last Admin: 09/30/18 06:52 Dose: 50 mcg Loratadine (Claritin -) [address] [facility] Last Admin: 09/29/18 22:12 Dose: 10 mg Methylnaltrexone [place] (Relistor -) 12 mg SQ DAILY [facility] Last Admin: 09/29/18 10:50 Dose: 12 mg Montelukast Sodium (Singulair -) [address] [facility] Last Admin: 09/29/18 22:12 Dose: 10 mg Neomycin/Polymyxin/Hydrocortisone (Cortisporin Otic Solution -) 4 drop AD Q6HPO [facility] Last Admin: 09/30/18 06:52 Dose: 4 drop Non-Formulary Medication (Mirabegron [Myrbetriq]) 50 mg PO DAILY [facility] Non-Formulary Medication (Vortioxetine Hydrobromide [Trintellix]) 20 mg PO DAILY [facility] Olanzapine (Zyprexa -) 5 mg PO BID [facility] Last Admin: 09/29/18 22:43 Dose: 5 mg Ondansetron HCl (Zofran Injection) 4 mg IVPUSH Q6H PRN PRN Reason: NAUSEA AND/OR VOMITING Last Admin: 09/22/18 21:55 Dose: 4 mg Ranitidine HCl (Zantac -) 300 mg PO DAILY [facility] Last Admin: 09/29/18 10:48 Dose: 300 mg Rosuvastatin Calcium (Crestor -) [address] [facility] Last Admin: 09/29/18 22:12 Dose: 10 mg Topiramate (Topamax -) 100 mg PO DAILY [facility] Last Admin: 09/29/18 10:51 Dose: 100 mg Venlafaxine HCl (Effexor Xr -) 75 mg PO DAILY@0800 [facility] Last Admin: 09/30/18 08:32 Dose: 75 mg A/P UTI Pneumonia MRSA Bacteremia Chronic Hypoxic and Hypercapneic Respiratory Failure Asthma/COPD HTN Paroxysmal Atrial Fibrillation DM Hypothyroidism Chronic Pain - continue antibiotics per ID - inhaled bronchodilators standing and PRN - O2 to keep Spo2 >90% - can defer systemic steroids at this time - rate controlled - continue anticoagulation - d/c planning Problem List - Problems (1) UTI (urinary tract infection) Code(s): N39.0 - URINARY TRACT INFECTION, SITE NOT SPECIFIED (2) Pneumonia Code(s): J18.9 - PNEUMONIA, UNSPECIFIED ORGANISM Qualifiers: Pneumonia type: due to unspecified organism Laterality: unspecified laterality Lung location: unspecified part of lung Qualified Code(s): J18.9 - Pneumonia, unspecified organism
[2018-09-30] MEDS: RANITIDINE HCL 150 MG TABLET (FP) PO SCH (10:17)
[2018-09-30] MEDS: TOPIRAMATE 100 MG TABLET PO SCH (10:18)
[2018-09-30] MEDS: OLANZapine 5 MG TABLET PO SCH ×2 (10:18→23:15)
[2018-09-30] MEDS: Methylnaltrexone Bromide 12 MG/0.6 ML KIT SQ SCH (10:18)
[2018-09-30] MEDS: APIXABAN 5 MG TABLET PO SCH ×2 (10:19→22:09)
[2018-09-30] MEDS: DOXEPIN HCL 25 MG CAPSULE PO SCH (10:19)
--- NOTE | 2018-09-30 10:34 | PN ---
Progress Note (short form) - Note Progress Note: AWAITING TRANSFER TO [facility] PATIENT IN BED COMFORTABLE SMALL MINOR FINGER PAIN, WILL MONITOR Problem List - Problems (1) Elevated lactic acid level Code(s): R79.89 - OTHER SPECIFIED ABNORMAL FINDINGS OF BLOOD CHEMISTRY (2) Sepsis Code(s): A41.9 - SEPSIS, UNSPECIFIED ORGANISM (3) UTI (urinary tract infection) Code(s): N39.0 - URINARY TRACT INFECTION, SITE NOT SPECIFIED (4) Abdominal pain Code(s): R10.9 - UNSPECIFIED ABDOMINAL PAIN (5) Acute and chronic respiratory failure with hypoxia Code(s): J96.21 - ACUTE AND CHRONIC RESPIRATORY FAILURE WITH HYPOXIA (6) Anemia Code(s): D64.9 - ANEMIA, UNSPECIFIED (7) Chronic respiratory failure Code(s): J96.10 - CHRONIC RESPIRATORY FAILURE, UNSP W HYPOXIA OR HYPERCAPNIA (8) Diabetes Code(s): E11.9 - TYPE 2 DIABETES MELLITUS WITHOUT COMPLICATIONS (9) Hypothyroid Code(s): E03.9 - HYPOTHYROIDISM, UNSPECIFIED Qualifiers: Hypothyroidism type: unspecified Qualified Code(s): E03.9 - Hypothyroidism , unspecified (10) Anxiety Code(s): F41.9 - ANXIETY DISORDER, UNSPECIFIED (11) Bipolar 2 disorder Code(s): F31.81 - BIPOLAR II DISORDER (12) COPD (chronic obstructive pulmonary disease) Code(s): J44.9 - CHRONIC OBSTRUCTIVE PULMONARY DISEASE, UNSPECIFIED Qualifiers: COPD type: unspecified COPD Qualified Code(s): J44.9 - Chronic obstructive pulmonary disease, unspecified (13) Depression with anxiety Code(s): F41.8 - OTHER SPECIFIED ANXIETY DISORDERS (14) Diabetes mellitus, insulin dependent (IDDM), uncontrolled Code(s): E10.65 - TYPE 1 DIABETES MELLITUS WITH HYPERGLYCEMIA (15) Neuropathy Code(s): G62.9 - POLYNEUROPATHY, UNSPECIFIED (16) Paroxysmal atrial fibrillation Code(s): I48.0 - PAROXYSMAL ATRIAL FIBRILLATION
[2018-09-30] MEDS: VANCOMYCIN 1 GRAM (PRE-DOCKED) 1,000 MG/250 ML BAG IVPB SCH (14:13)
[2018-09-30] MEDS: ROSUVASTATIN CA 10 MG TABLET (FP) PO SCH (22:09)
[2018-09-30] MEDS: LORATADINE 10 MG TABLET PO SCH (22:09)
[2018-09-30] MEDS: MONTELUKAST NA 10 MG TABLET PO SCH (22:09)
[2018-10-01] MEDS: NEOMYCIN/POLYMYXN/HC OTIC SOLUTION 10 ML BOTTLE AD SCH ×4 (00:19→17:46)
[2018-10-01] MEDS ORDERED: GABAPENTIN 100 MG CAPSULE (FP) ONE ×3 (06:38→22:39)
[2018-10-01] MEDS ORDERED: GABAPENTIN 300 MG CAPSULE (FP) ONE ×3 (06:39→22:39)
[2018-10-01] MEDS: LEVOTHYROXINE NA 50 MCG TABLET (FP) PO SCH (06:53)
[2018-10-01] MEDS: GABAPENTIN 300 MG, GABAPENTIN 200 MG PO SCH ×3 (06:53→22:56)
[2018-10-01] MEDS: BACLOFEN 10 MG TABLET (FP) PO SCH ×3 (06:53→22:58)
[2018-10-01] MEDS: INSULIN SLIDING SCALE (NOVOLOG) 1 VIAL SQ SCH ×4 (06:54→23:03)
[2018-10-01] MEDS: INSULIN (LEVEMIR) 100 UNITS/ML UNITS SQ SCH ×2 (06:54→22:59)
[2018-10-01] MEDS ORDERED: INSULIN (LEVEMIR) 100 UNITS/ML UNITS SQ ONE ×2 (07:14→23:18)
--- NOTE | 2018-10-01 07:32 | PN ---
Progress Note, Physician Chief Complaint: PATIENT IN BED COMPLAINING ABOUT WHY SHE IS STILL IN THE HOSPITAL - Current Medication List Current Medications: Active Medications Acetaminophen (Tylenol -) 650 mg PO Q6H PRN PRN Reason: PAIN LEVEL 1-5 OR FEVER Last Admin: 09/28/18 23:04 Dose: 650 mg Albuterol Sulfate (Ventolin 0.083% Nebulizer Soln -) 1 amp NEB Q4H PRN PRN Reason: SHORT OF BREATH/WHEEZING Last Admin: 09/29/18 13:05 Dose: 1 amp Alprazolam (Xanax -) 0.25 mg PO Q8H PRN PRN Reason: FOR ANXIETY Last Admin: 09/30/18 07:10 Dose: 0.25 mg Apixaban (Eliquis -) 5 mg PO BID [facility] Last Admin: 09/30/18 22:09 Dose: 5 mg Baclofen (Lioresal -) 20 mg PO TID [facility] Last Admin: 10/01/18 06:53 Dose: 20 mg Diltiazem HCl (Cardizem Cd -) 240 mg PO BID [facility] Last Admin: 09/30/18 22:09 Dose: 240 mg Doxepin HCl (Sinequan -) 25 mg PO DAILY [facility] Last Admin: 09/30/18 10:19 Dose: 25 mg Gabapentin 300 mg/ Gabapentin (200 mg) 500 mg PO TID [facility] Last Admin: 10/01/18 06:53 Dose: 500 mg Hydromorphone HCl (Dilaudid -) 4 mg PO Q8H PRN PRN Reason: PAIN LEVEL 6-10 Last Admin: 10/01/18 00:07 Dose: 4 mg IV Flush (Picc Line Flush) 8 ml IVPUSH PRN PRN PRN Reason: Protocol Vancomycin HCl (Vancomycin (Pre-Docked)) 1,000 mg in 250 mls @ 200 mls/hr IVPB DAILY@1500 [facility]; Protocol Last Admin: 09/30/18 14:13 Dose: 200 mls/hr Insulin Aspart (Novolog Vial Sliding Scale -) 1 vial SQ [facility]; Protocol Last Admin: 10/01/18 06:54 Dose: Not Given Insulin Detemir (Levemir Vial) 35 units SQ BID@0700,2200 [facility] Last Admin: 10/01/18 06:54 Dose: 35 units Levothyroxine Sodium (Synthroid -) 50 mcg PO DAILY@0700 [facility] Last Admin: 10/01/18 06:53 Dose: 50 mcg Loratadine (Claritin -) [address] [facility] Last Admin: 09/30/18 22:09 Dose: 10 mg Methylnaltrexone [place] (Relistor -) 12 mg SQ DAILY [facility] Last Admin: 09/30/18 10:18 Dose: 12 mg Montelukast Sodium (Singulair -) [address] [facility] Last Admin: 09/30/18 22:09 Dose: 10 mg Neomycin/Polymyxin/Hydrocortisone (Cortisporin Otic Solution -) 4 drop AD Q6HPO [facility] Last Admin: 10/01/18 06:53 Dose: 4 drop Non-Formulary Medication (Mirabegron [Myrbetriq]) 50 mg PO DAILY [facility] Non-Formulary Medication (Vortioxetine Hydrobromide [Trintellix]) 20 mg PO DAILY [facility] Olanzapine (Zyprexa -) 5 mg PO BID [facility] Last Admin: 09/30/18 23:15 Dose: 5 mg Ondansetron HCl (Zofran Injection) 4 mg IVPUSH Q6H PRN PRN Reason: NAUSEA AND/OR VOMITING Last Admin: 09/22/18 21:55 Dose: 4 mg Ranitidine HCl (Zantac -) 300 mg PO DAILY [facility] Last Admin: 09/30/18 10:17 Dose: 300 mg Rosuvastatin Calcium (Crestor -) [address] [facility] Last Admin: 09/30/18 22:09 Dose: 10 mg Topiramate (Topamax -) 100 mg PO DAILY [facility] Last Admin: 09/30/18 10:18 Dose: 100 mg Venlafaxine HCl (Effexor Xr -) 75 mg PO DAILY@0800 [facility] Last Admin: 09/30/18 08:32 Dose: 75 mg - Objective Vital Signs: Vital Signs Temperature 99 F 10/01/18 07:00 Pulse Rate 121 H 10/01/18 07:00 Respiratory Rate 22 H 10/01/18 07:00 Blood Pressure 114/76 10/01/18 07:00 O2 Sat by Pulse Oximetry (%) 97 09/30/18 21:00 Constitutional: Yes: No Distress Eyes: Yes: WNL HENT: Yes: Other Neck: Yes: Other (TRACHEOSTOMY) Cardiovascular: Yes: WNL Respiratory: Yes: Other (TRACHCOLLAR 02 SUPPORT) Gastrointestinal: Yes: Soft Genitourinary: Yes: Incontinence Musculoskeletal: Yes: Muscle Weakness Extremities: Yes: Other Edema: No Integumentary: Yes: Other Wound/Incision: Yes: Dressing Dry and Intact Neurological: Yes: Pre-Existing Deficit Psychiatric: Yes: Agitated Labs: CBC, BMP 09/29/18 10:00 09/29/18 10:00 Problem List - Problems (1) Elevated lactic acid level Code(s): R79.89 - OTHER SPECIFIED ABNORMAL FINDINGS OF BLOOD CHEMISTRY (2) Sepsis Code(s): A41.9 - SEPSIS, UNSPECIFIED ORGANISM (3) UTI (urinary tract infection) Code(s): N39.0 - URINARY TRACT INFECTION, SITE NOT SPECIFIED (4) Abdominal pain Code(s): R10.9 - UNSPECIFIED ABDOMINAL PAIN (5) Acute and chronic respiratory failure with hypoxia Code(s): J96.21 - ACUTE AND CHRONIC RESPIRATORY FAILURE WITH HYPOXIA (6) Anemia Code(s): D64.9 - ANEMIA, UNSPECIFIED (7) Chronic respiratory failure Code(s): J96.10 - CHRONIC RESPIRATORY FAILURE, UNSP W HYPOXIA OR HYPERCAPNIA (8) Diabetes Code(s): E11.9 - TYPE 2 DIABETES MELLITUS WITHOUT COMPLICATIONS (9) Hypothyroid Code(s): E03.9 - HYPOTHYROIDISM, UNSPECIFIED Qualifiers: Hypothyroidism type: unspecified Qualified Code(s): E03.9 - Hypothyroidism , unspecified (10) Anxiety Code(s): F41.9 - ANXIETY DISORDER, UNSPECIFIED (11) Bipolar 2 disorder Code(s): F31.81 - BIPOLAR II DISORDER (12) COPD (chronic obstructive pulmonary disease) Code(s): J44.9 - CHRONIC OBSTRUCTIVE PULMONARY DISEASE, UNSPECIFIED Qualifiers: COPD type: unspecified COPD Qualified Code(s): J44.9 - Chronic obstructive pulmonary disease, unspecified (13) Depression with anxiety Code(s): F41.8 - OTHER SPECIFIED ANXIETY DISORDERS (14) Diabetes mellitus, insulin dependent (IDDM), uncontrolled Code(s): E10.65 - TYPE 1 DIABETES MELLITUS WITH HYPERGLYCEMIA (15) Neuropathy Code(s): G62.9 - POLYNEUROPATHY, UNSPECIFIED (16) Paroxysmal atrial fibrillation Code(s): I48.0 - PAROXYSMAL ATRIAL FIBRILLATION Assessment/Plan DC PLANNING TO [facility] OR OTHER [facility] WHEN BED AVAILABLE ENT F/U CORTISPORIN EARDROPS QID VANCOMYCIN CAN CAUSE HEARING LOSS WILL HAVE ID AND ENT DISCUSS THIS PLAN FULL HEARING TEST OUTPATIENT
[2018-10-01] MEDS ORDERED: PT OWN MED DRAWER 7, Y5N ONE ×2 (10:23→22:40)
[2018-10-01] MEDS: RANITIDINE HCL 150 MG TABLET (FP) PO SCH (10:27)
[2018-10-01] MEDS: TOPIRAMATE 100 MG TABLET PO SCH (10:27)
[2018-10-01] MEDS: DOXEPIN HCL 25 MG CAPSULE PO SCH (10:27)
[2018-10-01] MEDS: OLANZapine 5 MG TABLET PO SCH ×2 (10:27→22:58)
[2018-10-01] MEDS: Methylnaltrexone Bromide 12 MG/0.6 ML KIT SQ SCH (10:27)
[2018-10-01] MEDS: VENLAFAXINE HCL 75 MG E.R. CAPSULES (FP) PO SCH (10:27)
[2018-10-01] MEDS: APIXABAN 5 MG TABLET PO SCH ×2 (10:27→22:57)
[2018-10-01] MEDS: ACETAMINOPHEN 325 MG TABLET (FP) PO PRN (10:28)
--- NOTE | 2018-10-01 11:26 | PN ---
Progress Note (short form) - Note Progress Note: PULMONARY POORLY RESPONSIVE CONGESTED NONPRODUCTIVE COUGH TRACH WITH O2 COLLAR IN PLACE PALE/ANICTERIC B/L END EXP WHEEZE/RHONCHI S1S2 TACHY BS+ SOFT NON-TENDER 1+EDEMA LABS/MEDS/NOTES/IMAGES/MICRO REVIEWED UTI MRSA bacteremia Chronic Hypoxic and Hypercapneic Respiratory Failure Asthma/COPD HTN Paroxysmal Atrial Fibrillation DM Hypothyroidism Chronic Pain Toxic Metabolic Encephalopathy Polypharmacy - Antibiotics per ID - inhaled bronchodilators standing and PRN - O2 to keep Spo2 >90% - rate controlled - continue anticoagulation - Trach collar O2 - Need to cut back on caity [place] MD
[2018-10-01] MEDS ORDERED: INSULIN (NOVOLOG) ASPART 100 UNITS/ML 10ML VIAL ONE (12:10)
[2018-10-01] MEDS: ALBUTEROL SO4 2.5/IPRATROPIUM 0.5 INH SOL 3 ML VIAL.NEB. NEB SCH ×3 (12:20→19:59)
[2018-10-01] MEDS: PATIENT'S OWN MEDICATION (NON-FORMULARY) (Mirabegron [Myrbetriq] 50 MG) PO SCH ×2 (13:17→13:18)
[2018-10-01] MEDS: PATIENT'S OWN MEDICATION (NON-FORMULARY) (Vortioxetine Hydrobromide [Trintellix] 20 MG) PO SCH ×2 (13:17→13:18)
[2018-10-01] MEDS: VANCOMYCIN 1 GRAM (PRE-DOCKED) 1,000 MG/250 ML BAG IVPB SCH (14:34)
[2018-10-01] MEDS: HYDROmorphone HCL 2 MG TABLET PO PRN (16:04)
[2018-10-01] MEDS: DOCUSATE SODIUM 100 MG CAPSULE (FP) PO SCH (22:56)
[2018-10-01] MEDS: ROSUVASTATIN CA 10 MG TABLET (FP) PO SCH (22:56)
[2018-10-01] MEDS: MONTELUKAST NA 10 MG TABLET PO SCH (22:57)
[2018-10-01] MEDS: LORATADINE 10 MG TABLET PO SCH (22:58)
[2018-10-02] MEDS ORDERED: PT OWN MED DRAWER 7, Y5N ONE ×6 (01:06→17:22)
[2018-10-02] MEDS: NEOMYCIN/POLYMYXN/HC OTIC SOLUTION 10 ML BOTTLE AD SCH ×5 (01:17→17:20)
[2018-10-02] MEDS: HYDROmorphone HCL 2 MG TABLET PO PRN (02:04)
[2018-10-02] MEDS ORDERED: GABAPENTIN 300 MG CAPSULE (FP) ONE ×3 (05:21→21:13)
[2018-10-02] MEDS ORDERED: GABAPENTIN 100 MG CAPSULE (FP) ONE ×3 (05:21→21:13)
[2018-10-02] MEDS: GABAPENTIN 300 MG, GABAPENTIN 200 MG PO SCH ×3 (06:05→22:11)
[2018-10-02] MEDS: BACLOFEN 10 MG TABLET (FP) PO SCH ×3 (06:06→22:11)
[2018-10-02] MEDS: INSULIN (LEVEMIR) 100 UNITS/ML UNITS SQ SCH ×2 (06:46→22:26)
[2018-10-02] MEDS: LEVOTHYROXINE NA 50 MCG TABLET (FP) PO SCH (06:46)
[2018-10-02] MEDS: INSULIN SLIDING SCALE (NOVOLOG) 1 VIAL SQ SCH ×4 (06:48→22:26)
[2018-10-02] MEDS ORDERED: INSULIN (LEVEMIR) 100 UNITS/ML UNITS SQ ONE (07:01)
--- NOTE | 2018-10-02 08:18 | PN ---
Progress Note, Physician Chief Complaint: AWAKE ALERT C/O HEARING LOSS AND NOW SAYS SHE IS BLIND?? HOWEVER PATIENT IS ABLE TO HAVE A FULL CONVERSATION WITH ME. PATIENT IS SITTING IN BED WITH NAD DENIES SOB, NO CHEST PAIN. TOLERATING MEALS WITH SOME CONSTIPATION. DILIP IS ABLE TO FOLLOW ME WITH HER EYES THROUGHOUT THE ROOM. - Current Medication List Current Medications: Active Medications Acetaminophen (Tylenol -) 650 mg PO Q6H PRN PRN Reason: PAIN LEVEL 1-5 OR FEVER Last Admin: 10/01/18 10:28 Dose: 650 mg Albuterol Sulfate (Ventolin 0.083% Nebulizer Soln -) 1 amp NEB Q4H PRN PRN Reason: SHORT OF BREATH/WHEEZING Last Admin: 09/29/18 13:05 Dose: 1 amp Albuterol/Ipratropium (Duoneb -) 1 amp NEB RQID [facility] Last Admin: 10/01/18 19:59 Dose: 1 amp Alprazolam (Xanax -) 0.25 mg PO Q8H PRN PRN Reason: FOR ANXIETY Last Admin: 09/30/18 07:10 Dose: 0.25 mg Apixaban (Eliquis -) 5 mg PO BID [facility] Last Admin: 10/01/18 22:57 Dose: 5 mg Baclofen (Lioresal -) 20 mg PO TID [facility] Last Admin: 10/02/18 06:06 Dose: 20 mg Diltiazem HCl (Cardizem Cd -) 240 mg PO BID [facility] Last Admin: 10/01/18 22:57 Dose: 240 mg Docusate Sodium (Colace -) 300 mg PO HS [facility] Last Admin: 10/01/18 22:56 Dose: 300 mg Doxepin HCl (Sinequan -) 25 mg PO DAILY [facility] Last Admin: 10/01/18 10:27 Dose: 25 mg Gabapentin 300 mg/ Gabapentin (200 mg) 500 mg PO TID [facility] Last Admin: 10/02/18 06:05 Dose: 500 mg Hydromorphone HCl (Dilaudid -) 2 mg PO Q8H PRN PRN Reason: PAIN LEVEL 7 - 10 Last Admin: 10/02/18 02:04 Dose: 2 mg IV Flush (Picc Line Flush) 8 ml IVPUSH PRN PRN PRN Reason: Protocol Vancomycin HCl (Vancomycin (Pre-Docked)) 1,000 mg in 250 mls @ 200 mls/hr IVPB DAILY@1500 [facility]; Protocol Last Admin: 10/01/18 14:34 Dose: 200 mls/hr Insulin Aspart (Novolog Vial Sliding Scale -) 1 vial SQ ACHS [facility]; Protocol Last Admin: 10/02/18 06:48 Dose: Not Given Insulin Detemir (Levemir Vial) 35 units SQ BID@0700,2200 [facility] Last Admin: 10/02/18 06:46 Dose: 35 units Levothyroxine Sodium (Synthroid -) 50 mcg PO DAILY@0700 [facility] Last Admin: 10/02/18 06:46 Dose: 50 mcg Loratadine (Claritin -) 10 mg PO [facility] Last Admin: 10/01/18 22:58 Dose: 10 mg Methylnaltrexone [place] (Relistor -) 12 mg SQ DAILY [facility] Last Admin: 10/01/18 10:27 Dose: 12 mg Montelukast Sodium (Singulair -) 10 mg PO [facility] Last Admin: 10/01/18 22:57 Dose: 10 mg Neomycin/Polymyxin/Hydrocortisone (Cortisporin Otic Solution -) 4 drop AD Q6HPO [facility] Last Admin: 10/02/18 06:06 Dose: 4 drop Olanzapine (Zyprexa -) 5 mg PO BID [facility] Last Admin: 10/01/18 22:58 Dose: 5 mg Ondansetron HCl (Zofran Injection) 4 mg IVPUSH Q6H PRN PRN Reason: NAUSEA AND/OR VOMITING Last Admin: 09/22/18 21:55 Dose: 4 mg Ranitidine HCl (Zantac -) 300 mg PO DAILY [facility] Last Admin: 10/01/18 10:27 Dose: 300 mg Rosuvastatin Calcium (Crestor -) 10 mg PO HS [facility] Last Admin: 10/01/18 22:56 Dose: 10 mg Topiramate (Topamax -) 100 mg PO DAILY [facility] Last Admin: 10/01/18 10:27 Dose: 100 mg Venlafaxine HCl (Effexor Xr -) 75 mg PO DAILY@0800 [facility] Last Admin: 10/01/18 10:27 Dose: 75 mg - Objective Vital Signs: Vital Signs Temperature 98.2 F 10/02/18 07:04 Pulse Rate 100 H 10/02/18 07:04 Respiratory Rate 18 10/02/18 07:04 Blood Pressure 122/78 10/02/18 07:04 O2 Sat by Pulse Oximetry (%) 97 09/30/18 21:00 Constitutional: Yes: Other Eyes: Yes: WNL, Conjunctiva Clear, EOM Intact HENT: Yes: WNL, Other (TRACHEOSTOMY) Neck: Yes: WNL Cardiovascular: Yes: WNL Respiratory: Yes: Other (TRACHCOLLAR/02 SUPPORT) Gastrointestinal: Yes: Soft, Abdomen, Obese Genitourinary: Yes: Incontinence Musculoskeletal: Yes: Muscle Weakness Edema: No Peripheral Pulses WNL: Yes Integumentary: Yes: WNL Wound/Incision: Yes: Clean/Dry Neurological: Yes: Pre-Existing Deficit ...Motor Strength: LLE, RLE Psychiatric: Yes: Other Labs: CBC, BMP 09/29/18 10:00 09/29/18 10:00 Problem List - Problems (1) Elevated lactic acid level Code(s): R79.89 - OTHER SPECIFIED ABNORMAL FINDINGS OF BLOOD CHEMISTRY (2) Sepsis Code(s): A41.9 - SEPSIS, UNSPECIFIED ORGANISM (3) UTI (urinary tract infection) Code(s): N39.0 - URINARY TRACT INFECTION, SITE NOT SPECIFIED (4) Abdominal pain Code(s): R10.9 - UNSPECIFIED ABDOMINAL PAIN (5) Acute and chronic respiratory failure with hypoxia Code(s): J96.21 - ACUTE AND CHRONIC RESPIRATORY FAILURE WITH HYPOXIA (6) Anemia Code(s): D64.9 - ANEMIA, UNSPECIFIED (7) Chronic respiratory failure Code(s): J96.10 - CHRONIC RESPIRATORY FAILURE, UNSP W HYPOXIA OR HYPERCAPNIA (8) Diabetes Code(s): E11.9 - TYPE 2 DIABETES MELLITUS WITHOUT COMPLICATIONS (9) Hypothyroid Code(s): E03.9 - HYPOTHYROIDISM, UNSPECIFIED Qualifiers: Hypothyroidism type: unspecified Qualified Code(s): E03.9 - Hypothyroidism , unspecified (10) Anxiety Code(s): F41.9 - ANXIETY DISORDER, UNSPECIFIED (11) Bipolar 2 disorder Code(s): F31.81 - BIPOLAR II DISORDER (12) COPD (chronic obstructive pulmonary disease) Code(s): J44.9 - CHRONIC OBSTRUCTIVE PULMONARY DISEASE, UNSPECIFIED Qualifiers: COPD type: unspecified COPD Qualified Code(s): J44.9 - Chronic obstructive pulmonary disease, unspecified (13) Depression with anxiety Code(s): F41.8 - OTHER SPECIFIED ANXIETY DISORDERS (14) Diabetes mellitus, insulin dependent (IDDM), uncontrolled Code(s): E10.65 - TYPE 1 DIABETES MELLITUS WITH HYPERGLYCEMIA (15) Neuropathy Code(s): G62.9 - POLYNEUROPATHY, UNSPECIFIED (16) Paroxysmal atrial fibrillation Code(s): I48.0 - PAROXYSMAL ATRIAL FIBRILLATION Assessment/Plan DC PLANNING TO [facility] OR OTHER SNF WHEN BED AVAILABLE ENT F/U CORTISPORIN EARDROPS QID VANCOMYCIN CAN CAUSE HEARING LOSS WILL HAVE ID AND ENT DISCUSS THIS PLAN FULL HEARING TEST OUTPATIENT STOOL SOFTENERS OPHTHALMOLOGY EVAL
[2018-10-02] MEDS: ALBUTEROL SO4 2.5/IPRATROPIUM 0.5 INH SOL 3 ML VIAL.NEB. NEB SCH ×4 (08:35→21:00)
[2018-10-02] MEDS: VENLAFAXINE HCL 75 MG E.R. CAPSULES (FP) PO SCH (08:43)
[2018-10-02 09:23] LABS: HEMATOCRIT 25.5 % (32.4-45.2); HEMOGLOBIN 7.4 GM/dL (10.7-15.3); MCH 21.7 pg (25.7-33.7); MCHC 28.9 g/dl (32.0-36.0); MEAN CELL VOLUME 75.2 fl (80-96); MEAN PLT VOLUME 9.1 fl (7.5-11.1); PLATELET COUNT 342 K/MM3 (134-434); RBC 3.39 M/mm3 (3.60-5.2); RDW 21.2 % (11.6-15.6); WHITE BLOOD COUNT 10.8 K/mm3 (4.0-10.0)
[2018-10-02] MEDS: APIXABAN 5 MG TABLET PO SCH ×2 (09:23→22:11)
[2018-10-02] MEDS: TOPIRAMATE 100 MG TABLET PO SCH (09:23)
[2018-10-02] MEDS: RANITIDINE HCL 150 MG TABLET (FP) PO SCH (09:23)
[2018-10-02] MEDS: DOXEPIN HCL 25 MG CAPSULE PO SCH (09:23)
[2018-10-02] MEDS: Methylnaltrexone Bromide 12 MG/0.6 ML KIT SQ SCH (09:24)
[2018-10-02] MEDS: OLANZapine 5 MG TABLET PO SCH ×2 (09:24→22:12)
[2018-10-02 09:50] LABS: ALBUMIN 1.9 g/dl (3.4-5.0); ALK PHOS 144 U/L (45-117); ANION GAP 7 MMOL/L (8-16); BILIRUBIN,TOTAL 0.2 mg/dL (0.2-1); BLOOD UREA NITROGEN 21 mg/dL (7-18); CALCIUM 7.9 mg/dL (8.5-10.1); CHLORIDE 106 mmol/L (98-107); CO2 29 mmol/L (21-32); CREATININE 1.2 mg/dL (0.55-1.3); GLUCOSE,RANDOM 105 mg/dL (74-106); POTASSIUM 3.9 mmol/L (3.5-5.1); SGOT/AST 21 U/L (15-37); SGPT/ALT 17 U/L (13-61); SODIUM 143 mmol/L (136-145); TOT PROT 6.3 g/dl (6.4-8.2)
--- NOTE | 2018-10-02 11:26 | PN ---
Progress Note (short form) - Note Progress Note: NAD on Trach collar. No hempotysis. No CP or SOB. 2 Intake & Output 09/29/18 09/30/18 10/01/18 10/02/18 23:59 23:59 23:59 23:59 Intake Total 490 1140 1930 200 Balance 490 1140 1930 200 Last Vital Signs Temp Pulse Resp BP Pulse Ox 98.2 F 118 H 18 110/73 92 L 10/02/18 08:45 10/02/18 08:45 10/02/18 08:45 10/02/18 08:45 10/02/18 09:00 Active Medications Acetaminophen (Tylenol -) 650 mg PO Q6H PRN PRN Reason: PAIN LEVEL 1-5 OR FEVER Last Admin: 10/01/18 10:28 Dose: 650 mg Albuterol Sulfate (Ventolin 0.083% Nebulizer Soln -) 1 amp NEB Q4H PRN PRN Reason: SHORT OF BREATH/WHEEZING Last Admin: 09/29/18 13:05 Dose: 1 amp Albuterol/Ipratropium (Duoneb -) 1 amp NEB RQID [facility] Last Admin: 10/01/18 19:59 Dose: 1 amp Alprazolam (Xanax -) 0.25 mg PO Q8H PRN PRN Reason: FOR ANXIETY Last Admin: 09/30/18 07:10 Dose: 0.25 mg Apixaban (Eliquis -) 5 mg PO BID [facility] Last Admin: 10/02/18 09:23 Dose: 5 mg Baclofen (Lioresal -) 20 mg PO TID [facility] Last Admin: 10/02/18 06:06 Dose: 20 mg Diltiazem HCl (Cardizem Cd -) 240 mg PO BID [facility] Last Admin: 10/02/18 09:22 Dose: 240 mg Docusate Sodium (Colace -) 300 mg PO HS [facility] Last Admin: 10/01/18 22:56 Dose: 300 mg Doxepin HCl (Sinequan -) 25 mg PO DAILY [facility] Last Admin: 10/02/18 09:23 Dose: 25 mg Gabapentin 300 mg/ Gabapentin (200 mg) 500 mg PO TID [facility] Last Admin: 10/02/18 06:05 Dose: 500 mg Hydromorphone HCl (Dilaudid -) 2 mg PO Q8H PRN PRN Reason: PAIN LEVEL 7 - 10 Last Admin: 10/02/18 02:04 Dose: 2 mg IV Flush (Picc Line Flush) 8 ml IVPUSH PRN PRN PRN Reason: Protocol Vancomycin HCl (Vancomycin (Pre-Docked)) 1,000 mg in 250 mls @ 200 mls/hr IVPB DAILY@1500 [facility]; Protocol Last Admin: 10/01/18 14:34 Dose: 200 mls/hr Insulin Aspart (Novolog Vial Sliding Scale -) 1 vial SQ [facility]; Protocol Last Admin: 10/02/18 06:48 Dose: Not Given Insulin Detemir (Levemir Vial) 35 units SQ BID@0700,2200 [facility] Last Admin: 10/02/18 06:46 Dose: 35 units Levothyroxine Sodium (Synthroid -) 50 mcg PO DAILY@0700 [facility] Last Admin: 10/02/18 06:46 Dose: 50 mcg Loratadine (Claritin -) 10 mg PO [facility] Last Admin: 10/01/18 22:58 Dose: 10 mg Methylnaltrexone [place] (Relistor -) 12 mg SQ DAILY [facility] Last Admin: 10/02/18 09:24 Dose: 12 mg Montelukast Sodium (Singulair -) 10 mg PO [facility] Last Admin: 10/01/18 22:57 Dose: 10 mg Neomycin/Polymyxin/Hydrocortisone (Cortisporin Otic Solution -) 4 drop AD Q6HPO [facility] Last Admin: 10/02/18 06:06 Dose: 4 drop Olanzapine (Zyprexa -) 5 mg PO BID [facility] Last Admin: 10/02/18 09:24 Dose: 5 mg Ondansetron HCl (Zofran Injection) 4 mg IVPUSH Q6H PRN PRN Reason: NAUSEA AND/OR VOMITING Last Admin: 09/22/18 21:55 Dose: 4 mg Ranitidine HCl (Zantac -) 300 mg PO DAILY [facility] Last Admin: 10/02/18 09:23 Dose: 300 mg Rosuvastatin Calcium (Crestor -) 10 mg PO [facility] Last Admin: 10/01/18 22:56 Dose: 10 mg Topiramate (Topamax -) 100 mg PO DAILY [facility] Last Admin: 10/02/18 09:23 Dose: 100 mg Venlafaxine HCl (Effexor Xr -) 75 mg PO DAILY@0800 [facility] Last Admin: 10/02/18 08:43 Dose: 75 mg Constitutional: Yes: NAD, mildly confused Eyes: Yes: Conjunctiva Clear, EOM Intact HENT: Yes: Atraumatic, Normocephalic Neck: Yes: Supple, Trachea Midline Cardiovascular: Yes: Regular Rate and Rhythm Respiratory: Yes: Diminished (distant breath sounds) Gastrointestinal: Yes: Normal Bowel Sounds, Soft, Abdomen, Obese. No: Tenderness Edema: No Neurological: Yes: Oriented Labs: Laboratory Results - last 24 hr 10/01/18 10/01/18 10/01/18 12:15 16:09 23:01 WBC RBC Hgb Hct MCV MCH MCHC RDW Plt Count MPV Sodium Potassium Chloride Carbon Dioxide Anion Gap BUN Creatinine Creat Clearance w eGFR POC Glucometer 147 292 160 Random Glucose Calcium Total Bilirubin AST ALT Alkaline Phosphatase Total Protein Albumin 10/02/18 10/02/18 10/02/18 06:48 08:35 08:35 WBC 10.8 H RBC 3.39 L Hgb 7.4 L Hct 25.5 L MCV 75.2 L MCH 21.7 L MCHC 28.9 L RDW 21.2 H Plt Count 342 MPV 9.1 Sodium 143 Potassium 3.9 Chloride 106 Carbon Dioxide 29 Anion Gap 7 L BUN 21 H Creatinine 1.2 Creat Clearance w eGFR 47.55 POC Glucometer 105 Random Glucose 105 Calcium 7.9 L Total Bilirubin 0.2 AST 21 ALT 17 Alkaline Phosphatase 144 H Total Protein 6.3 L Albumin 1.9 L Problem List - Problems (1) UTI (urinary tract infection) Code(s): N39.0 - URINARY TRACT INFECTION, SITE NOT SPECIFIED (2) Pneumonia Code(s): J18.9 - PNEUMONIA, UNSPECIFIED ORGANISM Qualifiers: Pneumonia type: due to unspecified organism Laterality: unspecified laterality Lung location: unspecified part of lung Qualified Code(s): J18.9 - Pneumonia, unspecified organism Assessment/Plan UTI Do not suspect Pneumonia but rather atelectasis Chronic Hypoxic and Hypercapneic Respiratory Failure Asthma/COPD HTN Paroxysmal Atrial Fibrillation DM Hypothyroidism Chronic Pain Toxic Metabolic Encephalopathy - inhaled bronchodilators standing and PRN - O2 to keep Spo2 >90% - rate controlled - continue anticoagulation - Trach collar O2 - D/C planning Dr Castaneda
[2018-10-02] MEDS: FERROUS SO4 325 MG TABLET (FP) PO SCH ×2 (12:05→22:11)
[2018-10-02] MEDS: VANCOMYCIN 1 GRAM (PRE-DOCKED) 1,000 MG/250 ML BAG IVPB SCH (14:52)
[2018-10-02] MEDS: PICC LINE 8 ML FLUSH PROTOCOL IVPUSH PRN (15:57)
[2018-10-02] MEDS ORDERED: INSULIN (NOVOLOG) ASPART 100 UNITS/ML 10ML VIAL ONE (18:13)
[2018-10-02] MEDS: DOCUSATE SODIUM 100 MG CAPSULE (FP) PO SCH ×2 (22:10→22:12)
[2018-10-02] MEDS: ROSUVASTATIN CA 10 MG TABLET (FP) PO SCH (22:11)
[2018-10-02] MEDS: MONTELUKAST NA 10 MG TABLET PO SCH (22:11)
[2018-10-02] MEDS: ALPRAZolam 0.25 MG TABLET PO PRN (22:12)
[2018-10-02] MEDS: LORATADINE 10 MG TABLET PO SCH (22:12)
[2018-10-02] MEDS: ONDANSETRON 4 MG/2 ML VIAL IVPUSH PRN (22:27)
[2018-10-03] MEDS: NEOMYCIN/POLYMYXN/HC OTIC SOLUTION 10 ML BOTTLE AD SCH ×5 (00:07→23:38)
[2018-10-03] MEDS: HYDROmorphone HCL 2 MG TABLET PO PRN ×2 (00:09→22:04)
[2018-10-03] MEDS ORDERED: GABAPENTIN 300 MG CAPSULE (FP) ONE ×3 (06:07→21:06)
[2018-10-03] MEDS ORDERED: GABAPENTIN 100 MG CAPSULE (FP) ONE ×3 (06:07→21:06)
[2018-10-03] MEDS: GABAPENTIN 300 MG, GABAPENTIN 200 MG PO SCH ×3 (06:15→21:51)
[2018-10-03] MEDS: BACLOFEN 10 MG TABLET (FP) PO SCH ×3 (06:15→21:52)
[2018-10-03 06:39] LABS: SERUM IRON SATURATION 11 % (15-55); TOTAL IRON BINDING CAPACITY 224 ug/dL (250-450); UIBC 199 ug/dL (131-425)
[2018-10-03] MEDS: INSULIN SLIDING SCALE (NOVOLOG) 1 VIAL SQ SCH ×4 (06:51→21:58)
[2018-10-03] MEDS: LEVOTHYROXINE NA 50 MCG TABLET (FP) PO SCH (06:51)
[2018-10-03] MEDS: INSULIN (LEVEMIR) 100 UNITS/ML UNITS SQ SCH ×2 (06:51→21:53)
[2018-10-03] MEDS: ALPRAZolam 0.25 MG TABLET PO PRN ×2 (06:56→23:37)
[2018-10-03] MEDS ORDERED: MAGNESIUM HYDROX 2400MG/30ML ORAL SUSPENSION 30 ML CUP PO PRN (07:20)
[2018-10-03] MEDS: ALBUTEROL SO4 2.5/IPRATROPIUM 0.5 INH SOL 3 ML VIAL.NEB. NEB SCH ×4 (07:59→20:31)
[2018-10-03] MEDS ORDERED: PT OWN MED DRAWER 7, Y5N ONE ×2 (08:25→09:21)
[2018-10-03] MEDS: VENLAFAXINE HCL 75 MG E.R. CAPSULES (FP) PO SCH (08:29)
[2018-10-03] MEDS: APIXABAN 5 MG TABLET PO SCH ×2 (09:23→21:52)
[2018-10-03] MEDS: POLYETHYLENE GLYCOL 3350 119 GM BTL PO SCH (09:24)
[2018-10-03] MEDS: FERROUS SO4 325 MG TABLET (FP) PO SCH ×2 (09:24→21:52)
[2018-10-03] MEDS: TOPIRAMATE 100 MG TABLET PO SCH (09:25)
[2018-10-03] MEDS: DOXEPIN HCL 25 MG CAPSULE PO SCH (09:25)
[2018-10-03] MEDS: RANITIDINE HCL 150 MG TABLET (FP) PO SCH (09:26)
[2018-10-03] MEDS: OLANZapine 5 MG TABLET PO SCH ×2 (09:26→21:53)
[2018-10-03] MEDS: Methylnaltrexone Bromide 12 MG/0.6 ML KIT SQ SCH (09:26)
--- NOTE | 2018-10-03 10:51 | PN ---
Progress Note, Physician Chief Complaint: NAUSEA/VOMITING History of Present Illness: NAD On trach collar - Current Medication List Current Medications: Active Medications Acetaminophen (Tylenol -) 650 mg PO Q6H PRN PRN Reason: PAIN LEVEL 1-5 OR FEVER Last Admin: 10/01/18 10:28 Dose: 650 mg Albuterol Sulfate (Ventolin 0.083% Nebulizer Soln -) 1 amp NEB Q4H PRN PRN Reason: SHORT OF BREATH/WHEEZING Last Admin: 09/29/18 13:05 Dose: 1 amp Albuterol/Ipratropium (Duoneb -) 1 amp NEB RQID [facility] Last Admin: 10/03/18 07:59 Dose: 1 amp Alprazolam (Xanax -) 0.25 mg PO Q8H PRN PRN Reason: FOR ANXIETY Last Admin: 10/03/18 06:56 Dose: 0.25 mg Apixaban (Eliquis -) 5 mg PO BID [facility] Last Admin: 10/03/18 09:23 Dose: 5 mg Baclofen (Lioresal -) 20 mg PO TID [facility] Last Admin: 10/03/18 06:15 Dose: 20 mg Diltiazem HCl (Cardizem Cd -) 240 mg PO BID [facility] Last Admin: 10/03/18 09:23 Dose: 240 mg Docusate Sodium (Colace -) 300 mg PO HS [facility] Last Admin: 10/02/18 22:10 Dose: Not Given Doxepin HCl (Sinequan -) 25 mg PO DAILY [facility] Last Admin: 10/03/18 09:25 Dose: 25 mg Ferrous Sulfate (Feosol -) 325 mg PO BID [facility] Last Admin: 10/03/18 09:24 Dose: 325 mg Gabapentin 300 mg/ Gabapentin (200 mg) 500 mg PO TID [facility] Last Admin: 10/03/18 06:15 Dose: 500 mg Hydromorphone HCl (Dilaudid -) 2 mg PO Q8H PRN PRN Reason: PAIN LEVEL 7 - 10 Last Admin: 10/03/18 00:09 Dose: 2 mg IV Flush (Picc Line Flush) 8 ml IVPUSH PRN PRN PRN Reason: Protocol Last Admin: 10/02/18 15:57 Dose: 8 ml Vancomycin HCl (Vancomycin (Pre-Docked)) 1,000 mg in 250 mls @ 200 mls/hr IVPB DAILY@1500 [facility]; Protocol Last Admin: 10/02/18 14:52 Dose: 200 mls/hr Insulin Aspart (Novolog Vial Sliding Scale -) 1 vial SQ [facility]; Protocol Last Admin: 10/03/18 06:51 Dose: Not Given Insulin Detemir (Levemir Vial) 35 units SQ BID@0700,2200 [facility] Last Admin: 10/03/18 06:51 Dose: 35 units Levothyroxine Sodium (Synthroid -) 50 mcg PO DAILY@0700 [facility] Last Admin: 10/03/18 06:51 Dose: 50 mcg Loratadine (Claritin -) 10 mg PO [facility] Last Admin: 10/02/18 22:12 Dose: 10 mg Magnesium Hydroxide (Milk Of Magnesia -) 30 ml PO DAILY PRN PRN Reason: CONSTIPATION Methylnaltrexone [place] (Relistor -) 12 mg SQ DAILY [facility] Last Admin: 10/03/18 09:26 Dose: 12 mg Montelukast Sodium (Singulair -) 10 mg PO [facility] Last Admin: 10/02/18 22:11 Dose: 10 mg Neomycin/Polymyxin/Hydrocortisone (Cortisporin Otic Solution -) 4 drop AD Q6HPO [facility] Last Admin: 10/03/18 06:15 Dose: 4 drop Olanzapine (Zyprexa -) 5 mg PO BID [facility] Last Admin: 10/03/18 09:26 Dose: 5 mg Ondansetron HCl (Zofran Injection) 4 mg IVPUSH Q6H PRN PRN Reason: NAUSEA AND/OR VOMITING Last Admin: 10/02/18 22:27 Dose: 4 mg Polyethylene Glycol (Miralax (For Daily Use) -) 17 gm PO DAILY [facility] Last Admin: 10/03/18 09:24 Dose: 17 gm Ranitidine HCl (Zantac -) 300 mg PO DAILY [facility] Last Admin: 10/03/18 09:26 Dose: 300 mg Rosuvastatin Calcium (Crestor -) 10 mg PO [facility] Last Admin: 10/02/18 22:11 Dose: 10 mg Topiramate (Topamax -) 100 mg PO DAILY [facility] Last Admin: 10/03/18 09:25 Dose: 100 mg Venlafaxine HCl (Effexor Xr -) 75 mg PO DAILY@0800 [facility] Last Admin: 10/03/18 08:29 Dose: 75 mg - Objective Vital Signs: Vital Signs Temperature 98.4 F 10/02/18 22:00 Pulse Rate 110 H 10/03/18 06:40 Respiratory Rate 20 10/02/18 22:00 Blood Pressure 136/80 10/02/18 22:00 O2 Sat by Pulse Oximetry (%) 97 10/03/18 06:40 Constitutional: Yes: Well Nourished, No Distress, Calm Cardiovascular: Yes: Regular Rate and Rhythm Respiratory: Yes: Rhonchi (diffuse), Other (trach collar) Labs: CBC, BMP 10/02/18 08:35 10/02/18 08:35 Problem List - Problems (1) Elevated lactic acid level Code(s): R79.89 - OTHER SPECIFIED ABNORMAL FINDINGS OF BLOOD CHEMISTRY (2) Sepsis Code(s): A41.9 - SEPSIS, UNSPECIFIED ORGANISM (3) UTI (urinary tract infection) Code(s): N39.0 - URINARY TRACT INFECTION, SITE NOT SPECIFIED (4) Tracheostomy in place Code(s): Z93.0 - TRACHEOSTOMY STATUS (5) Diabetes mellitus Code(s): E11.9 - TYPE 2 DIABETES MELLITUS WITHOUT COMPLICATIONS Qualifiers: Diabetes mellitus type: type 2 (6) Chronic respiratory failure Code(s): J96.10 - CHRONIC RESPIRATORY FAILURE, UNSP W HYPOXIA OR HYPERCAPNIA (7) Chronic pain disorder Code(s): G89.4 - CHRONIC PAIN SYNDROME (8) Paroxysmal atrial fibrillation Code(s): I48.0 - PAROXYSMAL ATRIAL FIBRILLATION
--- NOTE | 2018-10-03 11:21 | PN ---
Progress Note (short form) - Note Progress Note: NAD on Trach collar. No hempotysis. No CP or SOB. Intake & Output 09/30/18 10/01/18 10/02/18 10/03/18 23:59 23:59 23:59 23:59 Intake Total 1140 1930 770 240 Balance 1140 1930 770 240 Last Vital Signs Temp Pulse Resp BP Pulse Ox 99.3 F 112 H 20 107/63 99 10/03/18 08:05 10/03/18 08:05 10/03/18 08:05 10/03/18 08:05 10/03/18 09:00 Active Medications Acetaminophen (Tylenol -) 650 mg PO Q6H PRN PRN Reason: PAIN LEVEL 1-5 OR FEVER Last Admin: 10/01/18 10:28 Dose: 650 mg Albuterol Sulfate (Ventolin 0.083% Nebulizer Soln -) 1 amp NEB Q4H PRN PRN Reason: SHORT OF BREATH/WHEEZING Last Admin: 09/29/18 13:05 Dose: 1 amp Albuterol/Ipratropium (Duoneb -) 1 amp NEB RQID [facility] Last Admin: 10/03/18 07:59 Dose: 1 amp Alprazolam (Xanax -) 0.25 mg PO Q8H PRN PRN Reason: FOR ANXIETY Last Admin: 10/03/18 06:56 Dose: 0.25 mg Apixaban (Eliquis -) 5 mg PO BID [facility] Last Admin: 10/03/18 09:23 Dose: 5 mg Baclofen (Lioresal -) 20 mg PO TID [facility] Last Admin: 10/03/18 06:15 Dose: 20 mg Diltiazem HCl (Cardizem Cd -) 240 mg PO BID [facility] Last Admin: 10/03/18 09:23 Dose: 240 mg Docusate Sodium (Colace -) 300 mg PO HS [facility] Last Admin: 10/02/18 22:10 Dose: Not Given Doxepin HCl (Sinequan -) 25 mg PO DAILY [facility] Last Admin: 10/03/18 09:25 Dose: 25 mg Ferrous Sulfate (Feosol -) 325 mg PO BID [facility] Last Admin: 10/03/18 09:24 Dose: 325 mg Gabapentin 300 mg/ Gabapentin (200 mg) 500 mg PO TID [facility] Last Admin: 10/03/18 06:15 Dose: 500 mg Hydromorphone HCl (Dilaudid -) 2 mg PO Q8H PRN PRN Reason: PAIN LEVEL 7 - 10 Last Admin: 10/03/18 00:09 Dose: 2 mg IV Flush (Picc Line Flush) 8 ml IVPUSH PRN PRN PRN Reason: Protocol Last Admin: 10/02/18 15:57 Dose: 8 ml Vancomycin HCl (Vancomycin (Pre-Docked)) 1,000 mg in 250 mls @ 200 mls/hr IVPB DAILY@1500 [facility]; Protocol Last Admin: 10/02/18 14:52 Dose: 200 mls/hr Insulin Aspart (Novolog Vial Sliding Scale -) 1 vial SQ ACHS [facility]; Protocol Last Admin: 10/03/18 06:51 Dose: Not Given Insulin Detemir (Levemir Vial) 35 units SQ BID@0700,2200 [facility] Last Admin: 10/03/18 06:51 Dose: 35 units Levothyroxine Sodium (Synthroid -) 50 mcg PO DAILY@0700 [facility] Last Admin: 10/03/18 06:51 Dose: 50 mcg Loratadine (Claritin -) 10 mg PO [facility] Last Admin: 10/02/18 22:12 Dose: 10 mg Magnesium Hydroxide (Milk Of Magnesia -) 30 ml PO DAILY PRN PRN Reason: CONSTIPATION Methylnaltrexone [place] (Relistor -) 12 mg SQ DAILY [facility] Last Admin: 10/03/18 09:26 Dose: 12 mg Montelukast Sodium (Singulair -) 10 mg PO [facility] Last Admin: 10/02/18 22:11 Dose: 10 mg Neomycin/Polymyxin/Hydrocortisone (Cortisporin Otic Solution -) 4 drop AD Q6HPO [facility] Last Admin: 10/03/18 06:15 Dose: 4 drop Olanzapine (Zyprexa -) 5 mg PO BID [facility] Last Admin: 10/03/18 09:26 Dose: 5 mg Ondansetron HCl (Zofran Injection) 4 mg IVPUSH Q6H PRN PRN Reason: NAUSEA AND/OR VOMITING Last Admin: 10/02/18 22:27 Dose: 4 mg Polyethylene Glycol (Miralax (For Daily Use) -) 17 gm PO DAILY [facility] Last Admin: 10/03/18 09:24 Dose: 17 gm Ranitidine HCl (Zantac -) 300 mg PO DAILY [facility] Last Admin: 10/03/18 09:26 Dose: 300 mg Rosuvastatin Calcium (Crestor -) 10 mg PO HS [facility] Last Admin: 10/02/18 22:11 Dose: 10 mg Topiramate (Topamax -) 100 mg PO DAILY [facility] Last Admin: 10/03/18 09:25 Dose: 100 mg Venlafaxine HCl (Effexor Xr -) 75 mg PO DAILY@0800 [facility] Last Admin: 10/03/18 08:29 Dose: 75 mg Constitutional: Yes: NAD, mildly confused Eyes: Yes: Conjunctiva Clear, EOM Intact HENT: Yes: Atraumatic, Normocephalic Neck: Yes: Supple, Trachea Midline Cardiovascular: Yes: Regular Rate and Rhythm Respiratory: Yes: Diminished (distant breath sounds) Gastrointestinal: Yes: Normal Bowel Sounds, Soft, Abdomen, Obese. No: Tenderness Edema: No Neurological: Yes: Oriented Labs: Laboratory Results - last 24 hr 10/02/18 10/02/18 10/02/18 08:35 11:26 12:40 Sodium 143 Potassium 3.9 Chloride 106 Carbon Dioxide 29 Anion Gap 7 L BUN 21 H Creatinine 1.2 Creat Clearance w eGFR 47.55 POC Glucometer 173 Random Glucose 105 Calcium 7.9 L Iron 25 L TIBC 224 L Iron Saturation 11 L Ferritin 24.5 Total Bilirubin 0.2 AST 21 ALT 17 Alkaline Phosphatase 144 H Total Protein 6.3 L Albumin 1.9 L Vitamin B12 1187 H 10/02/18 10/02/18 10/03/18 16:16 22:24 06:36 Sodium Potassium Chloride Carbon Dioxide Anion Gap BUN Creatinine Creat Clearance w eGFR POC Glucometer 214 164 113 Random Glucose Calcium Iron TIBC Iron Saturation Ferritin Total Bilirubin AST ALT Alkaline Phosphatase Total Protein Albumin Vitamin B12 Problem List - Problems (1) UTI (urinary tract infection) Code(s): N39.0 - URINARY TRACT INFECTION, SITE NOT SPECIFIED (2) Pneumonia Code(s): J18.9 - PNEUMONIA, UNSPECIFIED ORGANISM Qualifiers: Pneumonia type: due to unspecified organism Laterality: unspecified laterality Lung location: unspecified part of lung Qualified Code(s): J18.9 - Pneumonia, unspecified organism Assessment/Plan UTI Do not suspect Pneumonia but rather atelectasis Chronic Hypoxic and Hypercapneic Respiratory Failure Asthma/COPD HTN Paroxysmal Atrial Fibrillation DM Hypothyroidism Chronic Pain Toxic Metabolic Encephalopathy - inhaled bronchodilators PRN - O2 to keep Spo2 >90% - rate controlled - continue anticoagulation - Trach collar O2 - D/C planning Dr Castaneda
[2018-10-03] MEDS: ONDANSETRON 4 MG/2 ML VIAL IVPUSH PRN ×2 (13:14→22:38)
[2018-10-03] MEDS: VANCOMYCIN 1 GRAM (PRE-DOCKED) 1,000 MG/250 ML BAG IVPB SCH (14:24)
[2018-10-03] MEDS: PICC LINE 8 ML FLUSH PROTOCOL IVPUSH PRN (15:30)
[2018-10-03] MEDS ORDERED: INSULIN (NOVOLOG) ASPART 100 UNITS/ML 10ML VIAL ONE (21:05)
[2018-10-03] MEDS: MONTELUKAST NA 10 MG TABLET PO SCH (21:52)
[2018-10-03] MEDS: LORATADINE 10 MG TABLET PO SCH (21:52)
[2018-10-03] MEDS: ROSUVASTATIN CA 10 MG TABLET (FP) PO SCH (21:52)
[2018-10-03] MEDS: DOCUSATE SODIUM 100 MG CAPSULE (FP) PO SCH (22:01)
[2018-10-04] MEDS ORDERED: GABAPENTIN 300 MG CAPSULE (FP) ONE ×2 (05:46→13:46)
[2018-10-04] MEDS ORDERED: GABAPENTIN 100 MG CAPSULE (FP) ONE ×2 (05:46→13:46)
[2018-10-04] MEDS: HYDROmorphone HCL 2 MG TABLET PO PRN ×2 (06:03→14:51)
[2018-10-04] MEDS: BACLOFEN 10 MG TABLET (FP) PO SCH ×2 (06:04→14:52)
[2018-10-04] MEDS: GABAPENTIN 300 MG, GABAPENTIN 200 MG PO SCH ×2 (06:06→14:52)
[2018-10-04] MEDS: NEOMYCIN/POLYMYXN/HC OTIC SOLUTION 10 ML BOTTLE AD SCH ×2 (06:07→10:59)
--- NOTE | 2018-10-04 06:45 | PN ---
Progress Note, Physician Chief Complaint: asleep nad - Current Medication List Current Medications: Active Medications Acetaminophen (Tylenol -) 650 mg PO Q6H PRN PRN Reason: PAIN LEVEL 1-5 OR FEVER Last Admin: 10/01/18 10:28 Dose: 650 mg Albuterol Sulfate (Ventolin 0.083% Nebulizer Soln -) 1 amp NEB Q4H PRN PRN Reason: SHORT OF BREATH/WHEEZING Last Admin: 09/29/18 13:05 Dose: 1 amp Albuterol/Ipratropium (Duoneb -) 1 amp NEB RQID [facility] Last Admin: 10/03/18 20:31 Dose: 1 amp Alprazolam (Xanax -) 0.25 mg PO Q8H PRN PRN Reason: FOR ANXIETY Last Admin: 10/03/18 23:37 Dose: 0.25 mg Apixaban (Eliquis -) 5 mg PO BID [facility] Last Admin: 10/03/18 21:52 Dose: 5 mg Baclofen (Lioresal -) 20 mg PO TID [facility] Last Admin: 10/04/18 06:04 Dose: 20 mg Diltiazem HCl (Cardizem Cd -) 240 mg PO BID [facility] Last Admin: 10/03/18 21:51 Dose: 240 mg Docusate Sodium (Colace -) 300 mg PO HS [facility] Last Admin: 10/03/18 22:01 Dose: Not Given Doxepin HCl (Sinequan -) 25 mg PO DAILY [facility] Last Admin: 10/03/18 09:25 Dose: 25 mg Ferrous Sulfate (Feosol -) 325 mg PO BID [facility] Last Admin: 10/03/18 21:52 Dose: 325 mg Gabapentin 300 mg/ Gabapentin (200 mg) 500 mg PO TID [facility] Last Admin: 10/04/18 06:06 Dose: 500 mg Hydromorphone HCl (Dilaudid -) 2 mg PO Q8H PRN PRN Reason: PAIN LEVEL 7 - 10 Last Admin: 10/04/18 06:03 Dose: 2 mg IV Flush (Picc Line Flush) 8 ml IVPUSH PRN PRN PRN Reason: Protocol Last Admin: 10/03/18 15:30 Dose: 8 ml Vancomycin HCl (Vancomycin (Pre-Docked)) 1,000 mg in 250 mls @ 200 mls/hr IVPB DAILY@1500 [facility]; Protocol Last Admin: 10/03/18 14:24 Dose: 200 mls/hr Insulin Aspart (Novolog Vial Sliding Scale -) 1 vial SQ [facility]; Protocol Last Admin: 10/03/18 21:58 Dose: Not Given Insulin Detemir (Levemir Vial) 35 units SQ BID@0700,2200 [facility] Last Admin: 10/03/18 21:53 Dose: 35 units Levothyroxine Sodium (Synthroid -) 50 mcg PO DAILY@0700 [facility] Last Admin: 10/03/18 06:51 Dose: 50 mcg Loratadine (Claritin -) 10 mg PO [facility] Last Admin: 10/03/18 21:52 Dose: 10 mg Magnesium Hydroxide (Milk Of Magnesia -) 30 ml PO DAILY PRN PRN Reason: CONSTIPATION Methylnaltrexone [place] (Relistor -) 12 mg SQ DAILY [facility] Last Admin: 10/03/18 09:26 Dose: 12 mg Montelukast Sodium (Singulair -) 10 mg PO [facility] Last Admin: 10/03/18 21:52 Dose: 10 mg Neomycin/Polymyxin/Hydrocortisone (Cortisporin Otic Solution -) 4 drop AD Q6HPO [facility] Last Admin: 10/04/18 06:07 Dose: 4 drop Olanzapine (Zyprexa -) 5 mg PO BID [facility] Last Admin: 10/03/18 21:53 Dose: 5 mg Ondansetron HCl (Zofran Injection) 4 mg IVPUSH Q6H PRN PRN Reason: NAUSEA AND/OR VOMITING Last Admin: 10/03/18 22:38 Dose: 4 mg Polyethylene Glycol (Miralax (For Daily Use) -) 17 gm PO DAILY [facility] Last Admin: 10/03/18 09:24 Dose: 17 gm Ranitidine HCl (Zantac -) 300 mg PO DAILY [facility] Last Admin: 10/03/18 09:26 Dose: 300 mg Rosuvastatin Calcium (Crestor -) 10 mg PO [facility] Last Admin: 10/03/18 21:52 Dose: 10 mg Topiramate (Topamax -) 100 mg PO DAILY [facility] Last Admin: 10/03/18 09:25 Dose: 100 mg Venlafaxine HCl (Effexor Xr -) 75 mg PO DAILY@0800 [facility] Last Admin: 10/03/18 08:29 Dose: 75 mg - Objective Vital Signs: Vital Signs Temperature 98.2 F 10/03/18 22:00 Pulse Rate 112 H 10/03/18 22:00 Respiratory Rate 20 10/03/18 22:00 Blood Pressure 127/81 10/03/18 22:00 O2 Sat by Pulse Oximetry (%) 94 L 10/03/18 21:00 Constitutional: Yes: Mild Distress Eyes: Yes: WNL HENT: Yes: Other Neck: Yes: Other (tracheostomy) Cardiovascular: Yes: Regular Rate and Rhythm Respiratory: Yes: Other (trachcollar with 02 support) Gastrointestinal: Yes: Soft, Abdomen, Obese Genitourinary: Yes: Incontinence Musculoskeletal: Yes: Muscle Weakness Edema: No Psychiatric: Yes: Other Labs: CBC, BMP 10/02/18 08:35 10/02/18 08:35 Problem List - Problems (1) Elevated lactic acid level Code(s): R79.89 - OTHER SPECIFIED ABNORMAL FINDINGS OF BLOOD CHEMISTRY (2) Sepsis Code(s): A41.9 - SEPSIS, UNSPECIFIED ORGANISM (3) UTI (urinary tract infection) Code(s): N39.0 - URINARY TRACT INFECTION, SITE NOT SPECIFIED (4) Abdominal pain Code(s): R10.9 - UNSPECIFIED ABDOMINAL PAIN (5) Acute and chronic respiratory failure with hypoxia Code(s): J96.21 - ACUTE AND CHRONIC RESPIRATORY FAILURE WITH HYPOXIA (6) Anemia Code(s): D64.9 - ANEMIA, UNSPECIFIED (7) Chronic respiratory failure Code(s): J96.10 - CHRONIC RESPIRATORY FAILURE, UNSP W HYPOXIA OR HYPERCAPNIA (8) Diabetes Code(s): E11.9 - TYPE 2 DIABETES MELLITUS WITHOUT COMPLICATIONS (9) Hypothyroid Code(s): E03.9 - HYPOTHYROIDISM, UNSPECIFIED Qualifiers: Hypothyroidism type: unspecified Qualified Code(s): E03.9 - Hypothyroidism , unspecified (10) Anxiety Code(s): F41.9 - ANXIETY DISORDER, UNSPECIFIED (11) Bipolar 2 disorder Code(s): F31.81 - BIPOLAR II DISORDER (12) COPD (chronic obstructive pulmonary disease) Code(s): J44.9 - CHRONIC OBSTRUCTIVE PULMONARY DISEASE, UNSPECIFIED Qualifiers: COPD type: unspecified COPD Qualified Code(s): J44.9 - Chronic obstructive pulmonary disease, unspecified (13) Depression with anxiety Code(s): F41.8 - OTHER SPECIFIED ANXIETY DISORDERS (14) Diabetes mellitus, insulin dependent (IDDM), uncontrolled Code(s): E10.65 - TYPE 1 DIABETES MELLITUS WITH HYPERGLYCEMIA (15) Neuropathy Code(s): G62.9 - POLYNEUROPATHY, UNSPECIFIED (16) Paroxysmal atrial fibrillation Code(s): I48.0 - PAROXYSMAL ATRIAL FIBRILLATION Assessment/Plan DC [facility]ING [facility] OTHER [facility]F WHEN BED AVAILABLE ENT F/U CORTISPORIN EARDROPS QID VANCOMYCIN CAN CAUSE HEARING LOSS WILL HAVE ID AND ENT DISCUSS THIS PLAN FULL HEARING TEST OUTPATIENT STOOL SOFTENERS OPHTHALMOLOGY EVAL
[2018-10-04] MEDS: INSULIN SLIDING SCALE (NOVOLOG) 1 VIAL SQ SCH ×2 (07:03→11:25)
[2018-10-04] MEDS: INSULIN (LEVEMIR) 100 UNITS/ML UNITS SQ SCH (07:07)
[2018-10-04] MEDS: LEVOTHYROXINE NA 50 MCG TABLET (FP) PO SCH (07:07)
[2018-10-04] MEDS: ALBUTEROL SO4 2.5/IPRATROPIUM 0.5 INH SOL 3 ML VIAL.NEB. NEB SCH ×2 (07:37→11:40)
[2018-10-04 07:48] LABS: ANION GAP 6 MMOL/L (8-16); BLOOD UREA NITROGEN 15 mg/dL (7-18); CALCIUM 8.1 mg/dL (8.5-10.1); CHLORIDE 106 mmol/L (98-107); CO2 29 mmol/L (21-32); CREATININE 1.3 mg/dL (0.55-1.3); GLUCOSE,RANDOM 104 mg/dL (74-106); POTASSIUM 3.8 mmol/L (3.5-5.1); SODIUM 141 mmol/L (136-145)
[2018-10-04 07:55] VITALS: TEMP 98.4
[2018-10-04 07:55] LABS: BASO % 0.7 % (0-2.0); EOS % 4.3 % (0-4.5); HEMATOCRIT 25.6 % (32.4-45.2); HEMOGLOBIN 7.6 GM/dL (10.7-15.3); MCH 22.4 pg (25.7-33.7); MCHC 29.5 g/dl (32.0-36.0); MEAN CELL VOLUME 75.8 fl (80-96); MONO % 11.3 % (3.8-10.2); NEUT % 70.7 % (42.8-82.8); PLATELET COUNT 344 K/MM3 (134-434); RBC 3.38 M/mm3 (3.60-5.2); RDW 22.5 % (11.6-15.6); WHITE BLOOD COUNT 10.1 K/mm3 (4.0-10.0)
--- NOTE | 2018-10-04 08:32 | PN ---
Progress Note (short form) - Note Progress Note: Neurology History of Present Illness: 52 y/o woman who presented to the ED with complaints of N/V/D x 2 days now resolved, but reported having a decreased appetite and generalized malaise. Patient reported that she had stomach flu-like symptoms as well. Patient denies fever, dizziness, COX, CP, dysuria. I was consulted because of tremor that was reported and in speaking with nurse, the patient has underlying anxiety and restlessness. She can be irritable and aggitated, has been more alert and over the weekend has been neurologically stable. CT head did not show acute changes. Remains on Abx. Does have underlying neuropathy. Pulmonary note reviewed. Tremor improved with ongoing treatment of UTI. On Vanco, plan is for SNF placement. Tremor may wax and wane but has improved. Awaiting placement, neurologically stable. Active Medications Acetaminophen (Tylenol -) 650 mg PO Q6H PRN PRN Reason: PAIN LEVEL 1-5 OR FEVER Last Admin: 10/01/18 10:28 Dose: 650 mg Albuterol Sulfate (Ventolin 0.083% Nebulizer Soln -) 1 amp NEB Q4H PRN PRN Reason: SHORT OF BREATH/WHEEZING Last Admin: 09/29/18 13:05 Dose: 1 amp Albuterol/Ipratropium (Duoneb -) 1 amp NEB RQID [facility] Last Admin: 10/04/18 07:37 Dose: 1 amp Alprazolam (Xanax -) 0.25 mg PO Q8H PRN PRN Reason: FOR ANXIETY Last Admin: 10/03/18 23:37 Dose: 0.25 mg Apixaban (Eliquis -) 5 mg PO BID [facility] Last Admin: 10/03/18 21:52 Dose: 5 mg Baclofen (Lioresal -) 20 mg PO TID [facility] Last Admin: 10/04/18 06:04 Dose: 20 mg Diltiazem HCl (Cardizem Cd -) 240 mg PO BID [facility] Last Admin: 10/03/18 21:51 Dose: 240 mg Docusate Sodium (Colace -) 300 mg PO HS [facility] Last Admin: 10/03/18 22:01 Dose: Not Given Doxepin HCl (Sinequan -) 25 mg PO DAILY [facility] Last Admin: 10/03/18 09:25 Dose: 25 mg Ferrous Sulfate (Feosol -) 325 mg PO BID [facility] Last Admin: 10/03/18 21:52 Dose: 325 mg Gabapentin 300 mg/ Gabapentin (200 mg) 500 mg PO TID [facility] Last Admin: 10/04/18 06:06 Dose: 500 mg Hydromorphone HCl (Dilaudid -) 2 mg PO Q8H PRN PRN Reason: PAIN LEVEL 7 - 10 Last Admin: 10/04/18 06:03 Dose: 2 mg IV Flush (Picc Line Flush) 8 ml IVPUSH PRN PRN PRN Reason: Protocol Last Admin: 10/03/18 15:30 Dose: 8 ml Vancomycin HCl (Vancomycin (Pre-Docked)) 1,000 mg in 250 mls @ 200 mls/hr IVPB DAILY@1500 [facility]; Protocol Last Admin: 10/03/18 14:24 Dose: 200 mls/hr Insulin Aspart (Novolog Vial Sliding Scale -) [address] [facility]; Protocol Last Admin: 10/04/18 07:03 Dose: Not Given Insulin Detemir (Levemir Vial) 35 units SQ BID@0700,2200 [facility] Last Admin: 10/04/18 07:07 Dose: 35 units Levothyroxine Sodium (Synthroid -) 50 mcg PO DAILY@0700 [facility] Last Admin: 10/04/18 07:07 Dose: 50 mcg Loratadine (Claritin -) 10 mg PO [facility] Last Admin: 10/03/18 21:52 Dose: 10 mg Magnesium Hydroxide (Milk Of Magnesia -) 30 ml PO DAILY PRN PRN Reason: CONSTIPATION Methylnaltrexone [place] (Relistor -) 12 mg SQ DAILY [facility] Last Admin: 10/03/18 09:26 Dose: 12 mg Montelukast Sodium (Singulair -) 10 mg PO [facility] Last Admin: 10/03/18 21:52 Dose: 10 mg Neomycin/Polymyxin/Hydrocortisone (Cortisporin Otic Solution -) 4 drop AD Q6HPO [facility] Last Admin: 10/04/18 06:07 Dose: 4 drop Olanzapine (Zyprexa -) 5 mg PO BID [facility] Last Admin: 10/03/18 21:53 Dose: 5 mg Ondansetron HCl (Zofran Injection) 4 mg IVPUSH Q6H PRN PRN Reason: NAUSEA AND/OR VOMITING Last Admin: 10/03/18 22:38 Dose: 4 mg Polyethylene Glycol (Miralax (For Daily Use) -) 17 gm PO DAILY [facility] Last Admin: 10/03/18 09:24 Dose: 17 gm Ranitidine HCl (Zantac -) 300 mg PO DAILY [facility] Last Admin: 10/03/18 09:26 Dose: 300 mg Rosuvastatin Calcium (Crestor -) 10 mg PO HS [facility] Last Admin: 10/03/18 21:52 Dose: 10 mg Topiramate (Topamax -) 100 mg PO DAILY [facility] Last Admin: 10/03/18 09:25 Dose: 100 mg Venlafaxine HCl (Effexor Xr -) 75 mg PO DAILY@0800 [facility] Last Admin: 10/03/18 08:29 Dose: 75 mg Physical Examination Vital Signs: Vital Signs Period Temp Pulse Resp BP Sys/Dan Pulse Ox Last 24 Hr 98.2 F-98.7 F 108-126 20-22 110-127/70-81 94-99 Constitutional: Yes: No Distress, Calm, Obese Eyes: Yes: WNL, Conjunctiva Clear, EOM Intact, PERRL HENT: Yes: WNL, Atraumatic, Normocephalic Neck: Yes: Supple, Other (trach with collar) Cardiovascular: Yes: Pulse Irregular, S1, S2 Respiratory: Yes: Wheezes (bases), Other (trach with collar) Gastrointestinal: Yes: Normal Bowel Sounds, Soft, Abdomen, Obese, Tenderness ( LMQ) Renal/: Yes: WNL Breast(s): Yes: WNL Musculoskeletal: Yes: WNL Extremities: Yes: WNL Edema: No Peripheral Pulses WNL: Yes Integumentary: Yes: Tattoos Neurological: Yes: WNL, Alert, Oriented, Cran Nerves II-XII Intact, moves all extremities, no tremor noted, finger to nose intact CBCD WBC 10.8 K/mm3 (4.0-10.0) H 10/02/18 08:35 RBC 3.39 M/mm3 (3.60-5.2) L 10/02/18 08:35 Hgb 7.4 GM/dL (10.7-15.3) L 10/02/18 08:35 Hct 25.5 % (32.4-45.2) L 10/02/18 08:35 MCV 75.2 fl (80-96) L 10/02/18 08:35 MCHC 28.9 g/dl (32.0-36.0) L 10/02/18 08:35 RDW 21.2 % (11.6-15.6) H 10/02/18 08:35 Plt Count 342 K/MM3 (134-434) 10/02/18 08:35 MPV 9.1 fl (7.5-11.1) 10/02/18 08:35 CMP Sodium 141 mmol/L (136-145) 10/04/18 06:15 Potassium 3.8 mmol/L (3.5-5.1) 10/04/18 06:15 Chloride 106 mmol/L (98-107) 10/04/18 06:15 Carbon Dioxide 29 mmol/L (21-32) 10/04/18 06:15 Anion Gap 6 MMOL/L (8-16) L 10/04/18 06:15 BUN 15 mg/dL (7-18) 10/04/18 06:15 Creatinine 1.3 mg/dL (0.55-1.3) 10/04/18 06:15 Creat Clearance w eGFR 43.36 (>60) 10/04/18 06:15 Random Glucose 104 mg/dL (74-106) 10/04/18 06:15 Calcium 8.1 mg/dL (8.5-10.1) L 10/04/18 06:15 Total Bilirubin 0.2 mg/dL (0.2-1) 10/02/18 08:35 AST 21 U/L (15-37) 10/02/18 08:35 ALT 17 U/L (13-61) 10/02/18 08:35 Alkaline Phosphatase 144 U/L (45-117) H 10/02/18 08:35 Total Protein 6.3 g/dl (6.4-8.2) L 10/02/18 08:35 Albumin 1.9 g/dl (3.4-5.0) L 10/02/18 08:[address] head reviewed Plan 52 y/o woman who presented to the ED with complaints of N/V/D x 2 days now resolved, but reported having a decreased appetite and generalized malaise. Patient reported that she had stomach flu-like symptoms as well. Patient denies fever, dizziness, COX, CP, dysuria. I was consulted because of tremor that was reported and in speaking with nurse, the patient has underlying anxiety and restlessness. She can be irritable and aggitated, this AM was calm and cooperative for me. Did complete CT head which did not show acute changes. Is being treated for UTI which can precipitate tremor. Also with underlying neuropathy. Recommend continued Tx for UTI, defer to ID, note reviewed. Maintain adequate hydration. Tremor has been stable with treatment for UTI. Has hypothyroid, monitor TSH and thyroid levels, as hyperthyroid can precipitate this as well. Monitor glucose, maintain normal range. Avoid hypo/ hyperglycemia. ID note reviewed, remains on Vanco, plan is for outpatient Abx completion of 28 day course. Neurologically stable. Awaiting placement to SNF.
[2018-10-04] MEDS: VENLAFAXINE HCL 75 MG E.R. CAPSULES (FP) PO SCH (08:49)
[2018-10-04] MEDS ORDERED: INSULIN (NOVOLOG) ASPART 100 UNITS/ML 10ML VIAL ONE (09:03)
[2018-10-04] MEDS ORDERED: PT OWN MED DRAWER 7, Y5N ONE (10:09)
[2018-10-04] MEDS: APIXABAN 5 MG TABLET PO SCH (10:48)
[2018-10-04] MEDS: FERROUS SO4 325 MG TABLET (FP) PO SCH (10:48)
[2018-10-04] MEDS: RANITIDINE HCL 150 MG TABLET (FP) PO SCH (10:48)
[2018-10-04] MEDS: DOXEPIN HCL 25 MG CAPSULE PO SCH (10:49)
[2018-10-04] MEDS: OLANZapine 5 MG TABLET PO SCH (10:49)
[2018-10-04] MEDS: TOPIRAMATE 100 MG TABLET PO SCH (10:51)
[2018-10-04] MEDS: ALPRAZolam 0.25 MG TABLET PO PRN (10:52)
[2018-10-04] MEDS: PICC LINE 8 ML FLUSH PROTOCOL IVPUSH PRN (10:53)
[2018-10-04] MEDS: Methylnaltrexone Bromide 12 MG/0.6 ML KIT SQ SCH (10:56)
[2018-10-04] MEDS: POLYETHYLENE GLYCOL 3350 119 GM BTL PO SCH (10:58)
--- NOTE | 2018-10-04 11:16 | PN ---
Progress Note (short form) - Note Progress Note: NAD on Trach collar. No hempotysis. No CP or SOB. Intake & Output 10/01/18 10/02/18 10/03/18 10/04/18 23:59 23:59 23:59 23:59 Intake Total 0 770 690 570 Balance 1930 770 690 570 Last Vital Signs Temp Pulse Resp BP Pulse Ox 98.4 F 108 H 20 110/77 94 L 10/04/18 07:53 10/04/18 07:53 10/04/18 07:53 10/04/18 07:53 10/04/18 07:38 Active Medications Acetaminophen (Tylenol -) 650 mg PO Q6H PRN PRN Reason: PAIN LEVEL 1-5 OR FEVER Last Admin: 10/01/18 10:28 Dose: 650 mg Albuterol Sulfate (Ventolin 0.083% Nebulizer Soln -) 1 amp NEB Q4H PRN PRN Reason: SHORT OF BREATH/WHEEZING Last Admin: 09/29/18 13:05 Dose: 1 amp Albuterol/Ipratropium (Duoneb -) 1 amp NEB RQID [facility] Last Admin: 10/04/18 07:37 Dose: 1 amp Alprazolam (Xanax -) 0.25 mg PO Q8H PRN PRN Reason: FOR ANXIETY Last Admin: 10/04/18 10:52 Dose: 0.25 mg Apixaban (Eliquis -) 5 mg PO BID [facility] Last Admin: 10/04/18 10:48 Dose: 5 mg Baclofen (Lioresal -) 20 mg PO TID [facility] Last Admin: 10/04/18 06:04 Dose: 20 mg Diltiazem HCl (Cardizem Cd -) 240 mg PO BID [facility] Last Admin: 10/04/18 10:48 Dose: 240 mg Docusate Sodium (Colace -) 300 mg PO HS [facility] Last Admin: 10/03/18 22:01 Dose: Not Given Doxepin HCl (Sinequan -) 25 mg PO DAILY [facility] Last Admin: 10/04/18 10:49 Dose: 25 mg Ferrous Sulfate (Feosol -) 325 mg PO BID [facility] Last Admin: 10/04/18 10:48 Dose: 325 mg Gabapentin 300 mg/ Gabapentin (200 mg) 500 mg PO TID [facility] Last Admin: 10/04/18 06:06 Dose: 500 mg Hydromorphone HCl (Dilaudid -) 2 mg PO Q8H PRN PRN Reason: PAIN LEVEL 7 - 10 Last Admin: 10/04/18 06:03 Dose: 2 mg IV Flush (Picc Line Flush) 8 ml IVPUSH PRN PRN PRN Reason: Protocol Last Admin: 10/04/18 10:53 Dose: 8 ml Vancomycin HCl (Vancomycin (Pre-Docked)) 1,000 mg in 250 mls @ 200 mls/hr IVPB DAILY@1500 [facility]; Protocol Last Admin: 10/03/18 14:24 Dose: 200 mls/hr Insulin Aspart (Novolog Vial Sliding Scale -) 1 vial SQ [facility]; Protocol Last Admin: 10/04/18 07:03 Dose: Not Given Insulin Detemir (Levemir Vial) 35 units SQ BID@0700,2200 [facility] Last Admin: 10/04/18 07:07 Dose: 35 units Levothyroxine Sodium (Synthroid -) 50 mcg PO DAILY@0700 [facility] Last Admin: 10/04/18 07:07 Dose: 50 mcg Loratadine (Claritin -) 10 mg PO [facility] Last Admin: 10/03/18 21:52 Dose: 10 mg Magnesium Hydroxide (Milk Of Magnesia -) 30 ml PO DAILY PRN PRN Reason: CONSTIPATION Methylnaltrexone [place] (Relistor -) 12 mg SQ DAILY [facility] Last Admin: 10/04/18 10:56 Dose: 12 mg Montelukast Sodium (Singulair -) 10 mg PO [facility] Last Admin: 10/03/18 21:52 Dose: 10 mg Neomycin/Polymyxin/Hydrocortisone (Cortisporin Otic Solution -) 4 drop AD Q6HPO [facility] Last Admin: 10/04/18 10:59 Dose: 4 drop Olanzapine (Zyprexa -) 5 mg PO BID [facility] Last Admin: 10/04/18 10:49 Dose: 5 mg Ondansetron HCl (Zofran Injection) 4 mg IVPUSH Q6H PRN PRN Reason: NAUSEA AND/OR VOMITING Last Admin: 10/03/18 22:38 Dose: 4 mg Polyethylene Glycol (Miralax (For Daily Use) -) 17 gm PO DAILY [facility] Last Admin: 10/04/18 10:58 Dose: 17 gm Ranitidine HCl (Zantac -) 300 mg PO DAILY [facility] Last Admin: 10/04/18 10:48 Dose: 300 mg Rosuvastatin Calcium (Crestor -) 10 mg PO HS [facility] Last Admin: 10/03/18 21:52 Dose: 10 mg Topiramate (Topamax -) 100 mg PO DAILY [facility] Last Admin: 10/04/18 10:51 Dose: 100 mg Venlafaxine HCl (Effexor Xr -) 75 mg PO DAILY@0800 [facility] Last Admin: 10/04/18 08:49 Dose: 75 mg Constitutional: Yes: NAD, mildly confused Eyes: Yes: Conjunctiva Clear, EOM Intact HENT: Yes: Atraumatic, Normocephalic Neck: Yes: Supple, Trachea Midline Cardiovascular: Yes: Regular Rate and Rhythm Respiratory: Yes: Diminished (distant breath sounds) Gastrointestinal: Yes: Normal Bowel Sounds, Soft, Abdomen, Obese. No: Tenderness Edema: No Neurological: Yes: Oriented Labs: Problem List - Problems (1) UTI (urinary tract infection) Code(s): N39.0 - URINARY TRACT INFECTION, SITE NOT SPECIFIED (2) Pneumonia Code(s): J18.9 - PNEUMONIA, UNSPECIFIED ORGANISM Qualifiers: Pneumonia type: due to unspecified organism Laterality: unspecified laterality Lung location: unspecified part of lung Qualified Code(s): J18.9 - Pneumonia, unspecified organism Assessment/Plan UTI Do not suspect Pneumonia but rather atelectasis Chronic Hypoxic and Hypercapneic Respiratory Failure Asthma/COPD HTN Paroxysmal Atrial Fibrillation DM Hypothyroidism Chronic Pain Toxic Metabolic Encephalopathy - inhaled bronchodilators PRN - O2 to keep Spo2 >90% - rate controlled - continue anticoagulation - Trach collar O2 - D/C planning Dr Castaneda
[2018-10-04 12:15] VITALS: BP 122/73; PULSE 98
[2018-10-04 12:15] LABS: ANISOCYTOSIS 2+; MACROCYTOSIS 0; OVALOCYTE 1+; PLATELET ESTIMATE NORMAL
[2018-10-04] MEDS: VANCOMYCIN 1 GRAM (PRE-DOCKED) 1,000 MG/250 ML BAG IVPB SCH (14:55)
== END 2018-10-04 17:05 | DRG 871 ==
LOC: JER 15:18 → JERBED 17:56 → J7W 20:09 → J8W 09-21 16:16
PROVIDERS: ADMIT Internal Medicine; ATTEND Family Medicine
PROC: 3E0F7GC Introduction of Other Therapeutic Substance into Respiratory Tract, Via Natural or Artificial Opening (ICD-10-PCS; principal; 2018-09-18)
PROC: 02HV33Z Insertion of Infusion Device into Superior Vena Cava, Percutaneous Approach (ICD-10-PCS; 2018-09-27)
DX: A41.02 Sepsis due to Methicillin resistant Staphylococcus aureus (principal); G93.41 Metabolic encephalopathy; N39.0 Urinary tract infection, site not specified; J96.12 Chronic respiratory failure with hypercapnia; J96.11 Chronic respiratory failure with hypoxia; J44.1 Chronic obstructive pulmonary disease with (acute) exacerbation; F31.81 Bipolar II disorder; J98.11 Atelectasis; E03.9 Hypothyroidism, unspecified; F41.8 Other specified anxiety disorders; M54.5 Low back pain; E66.9 Obesity, unspecified; Z68.32 Body mass index [BMI] 32.0-32.9, adult; R79.89 Other specified abnormal findings of blood chemistry; R11.2 Nausea with vomiting, unspecified; K21.9 Gastro-esophageal reflux disease without esophagitis; E78.5 Hyperlipidemia, unspecified; E87.6 Hypokalemia; E83.42 Hypomagnesemia; R68.89 Other general symptoms and signs; G47.00 Insomnia, unspecified; K29.70 Gastritis, unspecified, without bleeding; I10 Essential (primary) hypertension; G89.29 Other chronic pain; R10.9 Unspecified abdominal pain; J20.9 Acute bronchitis, unspecified; E11.65 Type 2 diabetes mellitus with hyperglycemia; E11.40 Type 2 diabetes mellitus with diabetic neuropathy, unspecified; D64.9 Anemia, unspecified; Z93.0 Tracheostomy status; Z85.42 Personal history of malignant neoplasm of other parts of uterus; Z87.891 Personal history of nicotine dependence; Z86.19 Personal history of other infectious and parasitic diseases
CPT/HCPCS: 36415; 36569; 36600; 70450-TC; 71045-TC-FY; 77001-TC-FY; 80048; 80053; 81003; 81015; 82272; 82607; 82728; 82803; 82962; 83036; 83540; 83550; 83605; 83690; 83735; 84484; 85025; 85027; 87040; 87070; 87077; 87086; 87186; 87205; 87804; 87899; 93005; 93010; 93306-TC; 94640; 99282-25; 99284-25; C1751; G0480; J0475; J7030; Q0162

== ENCOUNTER 2018-10-18 14:13 | Inpatient (IN) | payer OTHER ==
[2018-10-18 14:37] VITALS: BMI 29.5
--- NOTE | 2018-10-18 14:46 | PDOC ---
History of Present Illness - General Chief Complaint: SIRS, Suspected/Possible Stated Complaint: FEVER - History of Present Illness Initial Comments: Bonita Figueroa is a 52yo woman with a PMH of COPD with chronic hypoxic hypercapnic respiratory failure s/p trach, paroxysmal a-fib, HTN, IDDM, hypothyroidism, bipolar disorder, and recent admission for sepsis secondary to pneumonia. She was discharged to a SNF about 2 weeks ago with a PICC line in place for IV antibiotics (vancomycin). She presents from the SNF today with AMS and fever to 103F. Though normally conversational, Ms Figueroa is minimally responsive today only stating "mama" to her mother (at bedside) but not answering questions. Her mother states that she visits the SNF daily and has not noticed any complaints or new symptoms prior to today. She is not aware of any recent fevers, worsening cough, vomiting, diarrhea/constipation, or poor appetite. She reports that Ms Figueroa is normally very "chatty" but is refusing to speak today; this is very different than her baseline mental status. Past History - Past Medical History Allergies/Adverse Reactions: Allergies Allergy/AdvReac Type Severity Reaction Status Date / Time oxycodone [Oxycodone] Allergy Severe Nausea Verified 10/18/18 14:35 oxycodone HCl [From Percocet] Allergy Severe Nausea Verified 10/18/18 14:35 aspirin Allergy Mild Verified 10/18/18 14:35 blueberry [Blueberry] Allergy Mild Swelling Verified 10/18/18 14:35 fentanyl Allergy Mild Vomiting Verified 10/18/18 14:35 ibuprofen Allergy Swelling Verified 10/18/18 14:35 aspartame AdvReac Mild Itching Verified 10/18/18 14:35 Home Medications: Ambulatory Orders Albuterol Sulfate Inhaler - [Ventolin HFA Inhaler -] 2 puff IH Q4H PRN #0 inhaler 11/29/16 Acetaminophen [Tylenol .Regular Strength -] 650 mg PO Q6H PRN #0 tablet Apixaban [Eliquis -] 5 mg PO BID tablet 04/29/17 Baclofen 20 mg PO TID 07/09/18 Diltiazem HCl [Diltiazem 24Hr Cd] 240 mg PO BID 07/09/18 Levocetirizine Dihydrochloride 5 mg PO HS 07/09/18 Levothyroxine [Synthroid -] 50 mcg PO DAILY 07/09/18 Rosuvastatin Calcium [Crestor] 10 mg PO DAILY 07/09/18 Venlafaxine HCl ER [Effexor Xr -] 75 mg PO DAILY 07/09/18 Famotidine 40 mg PO BID 08/07/18 Hydromorphone HCl 4 mg PO Q4H 08/07/18 Mirabegron [Myrbetriq] 50 mg PO DAILY 08/07/18 Montelukast Na [Singulair -] 10 mg PO HS 08/07/18 Alprazolam [Xanax] 0.25 mg PO TID #15 tablet MDD 3 08/15/18 Doxepin HCl [Sinequan -] 25 mg PO DAILY #30 capsule 08/15/18 Linaclotide [Linzess] 145 mcg PO DAILY #30 cap 08/15/18 Pantoprazole Sodium [Protonix -] 40 mg PO DAILY #30 tablet.ec 08/15/18 Topiramate [Topamax -] 100 mg PO DAILY #30 tablet 08/15/18 Vortioxetine Hydrobromide [Trintellix] 20 mg PO DAILY #30 tablet 08/15/18 Gabapentin [Neurontin -] 500 mg PO Q8H #21 capsule 08/30/18 Insulin (Novolog) [Novolog -] 0 units SQ AC 08/30/18 Ondansetron [Zofran -] 8 mg PO TID 08/30/18 Zolpidem Tartrate 10 mg PO HS MDD 1 09/04/18 Gabapentin [Neurontin -] 500 mg PO TID #90 capsule 09/08/18 Nitrofurantoin Monohyd/M-Cryst [Macrobid -] 100 mg PO BID #14 capsule 09/08/18 Ondansetron [Ondansetron Odt] 8 mg PO TID #90 tab.rapdis 09/09/18 Phenazopyridine HCl [Pyridium -] 100 mg PO ONCE #6 tablet 09/15/18 Fluconazole [Diflucan -] 200 mg PO DAILY #7 tablet 09/18/18 Anemia: Yes Asthma: Yes (COPD, trach #8) Cancer: Yes (UTERINE) Cardiac Disorders: Yes (A-fib) CVA: No COPD: Yes CHF: No Dementia: No Diabetes: Yes GI Disorders: Yes (colitis, SB resection, GERD) Disorders: Yes (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) HTN: Yes Hypercholesterolemia: Yes Liver Disease: No Psychiatric Problems: Yes (ANXIETY) Seizures: Yes (5 yrs ago had a seizure ( zofran and reglan given together as per patient) Thyroid Disease: No - Surgical History Abdominal Surgery: Yes (BOWEL RESECTION) Appendectomy: Yes (removed 1998) Cardiac Surgery: No Cholecystectomy: No Lung Surgery: No Neurologic Surgery: No Orthopedic Surgery: Yes (Back Sx T7,6) - Immunization History Td Vaccination: Yes TDAP Vaccination: Yes Immunization Up to Date: Yes - Suicide/Smoking/Psychosocial Hx Smoking Status: No Smoking History: Former smoker Have you smoked in the past 12 months: No Number of Cigarettes Smoked Daily: 3 If you are a former smoker, when did you quit?: 2014 Information on smoking cessation initiated: No 'Breaking Loose' booklet given: 03/12/15 Hx Alcohol Use: No Drug/Substance Use Hx: No Substance Use Type: None Hx Substance Use Treatment: No Review of Systems - Review of Systems Able to Perform ROS?: No Comments:: Patient not responsive to questions. *Physical Exam - Vital Signs Last Vital Signs Temp Pulse Resp BP Pulse Ox 103.1 F H 130 H 20 108/81 99 10/18/18 14:35 10/18/18 14:35 10/18/18 14:35 10/18/18 14:35 10/18/18 14:35 - Physical Exam Comments: General: Poorly responsive HEENT: PERRL, EOMI, trach in place Cards: Tachycardic. No murmur appreciated. Pulm: Trached, coarse breath sounds b/l. Abd: Soft, nontender, nondistended. Skin cream in place under pannus Ext: Atraumatic. BLE atrophy. Could not examine strength; not following commands Vasc: Extremities WWP. Skin: Normal color, no rashes or lesions Neuro: Awake. Not conversational, will not answer questions (says "ow" and 'Mama "), CN grossly intact, no focal abnormalities ED Treatment Course - LABORATORY CBC & Chemistry Diagram: 10/18/18 16:00 10/18/18 16:00 Medical Decision Making - Medical Decision Making 10/18/18 15:57 Bonita Lyles is a 52yo woman with multiple chronic medical conditions and recent admission for sepsis secondary to pneumonia, currently with a PICC line for IV vancomycin, who presents from a SNF with fever to 103F today. - Patient is not currently answering questions. Her mother, at bedside, is not aware of any new symptoms - Septic workup initiated including CBC, CMP, trop, lactate, UA, UCx, CXR, EKG. Blood cultures, one to be drawn from PICC. Rapid flu - IV acetaminophen for fever - Will most likely need admission 10/18/18 17:08 - Labs reviewed. Notable for LEEANNA with Cr 1.7 from baseline 0.6-0.8 last month. - Glucose 69. Amp D50 ordered - UA pending 10/18/18 17:38 - UA positive. WBC 1271, RBC 56, 3+ leuk esterase - PMD is Dr Jaquez, admits to Dr Goel - page to hospitalist team for admission (after 5pm) - Sensitivities from most recent urine culture reviewed. Had ESBL ecoli and proteus - will give 1x dose meropenem 10/18/18 18:13 - Spoke to Dr Garcia regarding admission. Plans to admit. Suggesting ertapenem rather than meropenem due to 1x daily dosing. Requests CT head to r/o other causes of AMS prior to determining appropriate placement - floor v tele v ICU 10/18/18 22:57 - CT completed during transport to the floor - CLAIM ATTORNEY Brie Guy in ED to follow up admission. Patient discussed with Dr Gonzalez. Mary Orellana PGY1 *DC/Admit/Observation/Transfer Diagnosis at time of Disposition: Sepsis secondary to UTI - Discharge Dispostion Decision to Admit order: Yes - Referrals - Patient Instructions - Post Discharge Activity
[2018-10-18] MEDS ORDERED: ACETAMINOPHEN 1000 MG/100 ML VIAL (NON FORMULARY) IVPB ONE (15:47)
[2018-10-18] MEDS ORDERED: SODIUM CHLORIDE 1,000 ML IV STA (15:47)
[2018-10-18 16:21] LABS: BASO % 1.2 % (0-2.0); EOS % 4.4 % (0-4.5); HEMOGLOBIN 9.4 GM/dL (10.7-15.3); LYMPH % 18.4 % (8-40); MCH 25.3 pg (25.7-33.7); MCHC 31.5 g/dl (32.0-36.0); MEAN CELL VOLUME 80.3 fl (80-96); MEAN PLT VOLUME 8.7 fl (7.5-11.1); MONO % 10.9 % (3.8-10.2); NEUT % 65.1 % (42.8-82.8); PLATELET COUNT 365 K/MM3 (134-434); RBC 3.73 M/mm3 (3.60-5.2); RDW 27.7 % (11.6-15.6); WHITE BLOOD COUNT 9.7 K/mm3 (4.0-10.0)
[2018-10-18 16:35] LABS: VENOUS PC02 49.4 mmHg (38-52); VENOUS PH 7.34 (7.32-7.42); VENOUS PO2 42.4 mmHg (28-48)
[2018-10-18 16:47] LABS: INR 2.5 (0.83-1.09); PROTHROMBIN TIME (PATIENT) 29.8 SEC (9.7-13.0)
--- NOTE | 2018-10-18 16:48 | PDOC ---
Attending Attestation - Resident Resident Name: ReynaMary - ED Attending Attestation I have performed the following: I have examined & evaluated the patient, The case was reviewed & discussed with the resident, I agree w/resident's findings & plan, Exceptions are as noted - HPI HPI: 10/18/18 16:45 The patient is a 52 year old female, with a past medical history of diabetes, COPD (s/p trach), atrial fibrillation, stroke, asthma, depression, uterine cancer (s/p cystectomy), chronic back pain, migraines, osteomyelitis, small bowel resection, and anxiety, who presents to the emergency department with fever and lethargy. Pt was recently admitted for sepsis 2/2 pneumonia and has been receiving IV abx via PICC line at [place]. Family notes today pt had a Tmax of 103 and has been more lethargic. Allergies: NKA Past surgical history: None reported. Social history: Nonsmoker. Denies EtOH use and recreational drug use. Primary Care Physician: Dr. Jaquez Pain management: Dr. Sagastume Pulmonary:Dr. Santiago Rehab: [facility] - Physicial Exam PE: 10/18/18 16:46 Agree with resident exam - Critical Care Time Total Critical Care Time: 60 Critical Care Statement: The care of this patient involved high complexity decision making to prevent further life threatening deterioration of the patient 's condition and/or to evaluate & treat vital organ system(s) failure or risk of failure. - Medical Decision Making 10/18/18 16:47 52 F with sepsis. Source at this time unclear. Pt was previously being treated for PNA. Will recheck CXR. WIll also evaluate for UTI and check for flu. Pt currently has PICC line as well, will culture this. - Labs, cultures - CXR, UA - IVF, tylenol - Abx 10/18/18 17:23 Labs notable for UTI CXR clear Will start on meropenem based on prior sensitivities.
[2018-10-18 16:50] LABS: ACTIVATED PTT 41.3 SECONDS (25.2-36.5)
[2018-10-18 16:56] LABS: ALK PHOS 144 U/L (45-117); ANION GAP 9 MMOL/L (8-16); BILIRUBIN,TOTAL 0.4 mg/dL (0.2-1); BLOOD UREA NITROGEN 14 mg/dL (7-18); CALCIUM 7.8 mg/dL (8.5-10.1); CHLORIDE 110 mmol/L (98-107); CO2 26 mmol/L (21-32); CREATININE 1.7 mg/dL (0.55-1.3); GLUCOSE,RANDOM 69 mg/dL (74-106); SGOT/AST 39 U/L (15-37); SGPT/ALT 22 U/L (13-61); SODIUM 145 mmol/L (136-145); TOT PROT 6.4 g/dl (6.4-8.2)
[2018-10-18 17:05] LABS: URINE APPEARANCE TURBID; URINE BILIRUBIN NEGATIVE (<2.0 mg/dL); URINE COLOR AMBER; URINE GLUCOSE (UA) NEGATIVE (NEGATIVE); URINE KETONE NEGATIVE (NEGATIVE); URINE LEUK ESTERASE 3+ (NEGATIVE); URINE NITRITE NEGATIVE (NEGATIVE); URINE PROTEIN 1+ (NEGATIVE); URINE UROBILINOGEN NEGATIVE mg/dL (0.2-1.0)
[2018-10-18] MEDS ORDERED: DEXTROSE 50%-WATER 25 GM/50 ML DISP.SYRIN ONE (17:06)
[2018-10-18] MEDS ORDERED: DEXTROSE 50%-WATER - 25 GM/50 ML VIAL IVPUSH ONE (17:07)
[2018-10-18 17:16] LABS: EPI CELLS MANY /HPF (FEW); URINE MUCUS RARE
[2018-10-18 17:19] LABS: URINE BACTERIA RARE /hpf (NONE SEEN); YEAST FEW
[2018-10-18] MEDS ORDERED: ERTAPENEM SODIUM 1 GM in SODIUM CHLORIDE 50 ML IVPB ONE (18:05)
[2018-10-18 18:43] LABS: ANISOCYTOSIS 3+; MACROCYTOSIS 1+
[2018-10-18 18:44] LABS: PLATELET ESTIMATE ADEQUATE; TEAR DROP CELLS 1+
--- NOTE | 2018-10-18 20:16 | HP ---
Admitting History and Physical - Admission History of Present Illness: This is a 52 y/o woman with a PMHx of: COPD with Chronic Hypoxic Hypercapnic Respiratory Failure s/p trach, Paroxysmal A-fib, HTN, IDDM, Hypothyroidism, Bipolar Disorder, recent hospitalization for Sepsis secondary to Pneumonia. She was discharged to a SNF about 2 weeks ago with a PICC line in place for IV antibiotics (Vancomycin). Who presents from the SNF today with AMS and fever to 103F. Per ED records, the patient's mother notes that the patient only calls for "mama" and is not communicative different from baseline. History Source: Family Member, Medical Record Limitations to Obtaining History: Clinical Condition, Unresponsive - Past Medical History Cardiovascular: Yes: AFIB (Paroxysmal), HTN, Hyperlipdemia Pulmonary: Yes: Asthma, COPD, O2 Dependent, Previously Intubated Gastrointestinal: Yes: GI Bleed Renal/: Yes: Cancer (Uterine), Other (STENTS/[place] in the past) Heme/Onc: Yes: Other (BCA, Uterine Ca) Infectious Disease: Yes: C-Diff (june 2014), Other (Osteomyelitis of thoracic spine) Psych: Yes: Anxiety, Bipolar, Depression Musculoskeletal: Yes: Chronic low back pain, Other (multiple vertebral fractures ) Endocrine: Yes: Diabetes Mellitus, Hypothyroidism - Past Surgical History Past Surgical History: Yes: Appendectomy, Colectomy (By description, right colon resection with anastamosis noted on colonoscopy 2013), Hysterectomy (ADE/ BSO), Stent - Smoking History Smoking history: Former smoker Have you smoked in the past 12 months: No Aproximately how many cigarettes per day: 3 If you are a former smoker, when did you quit?: 2015 - Alcohol/Substance Use Hx Alcohol Use: No - Social History 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) History of Recent Travel: No Home Medications - Allergies Allergies/Adverse Reactions: Allergies Allergy/AdvReac Type Severity Reaction Status Date / Time oxycodone [Oxycodone] Allergy Severe Nausea Verified 10/18/18 14:35 oxycodone HCl [From Percocet] Allergy Severe Nausea Verified 10/18/18 14:35 aspirin Allergy Mild Verified 10/18/18 14:35 blueberry [Blueberry] Allergy Mild Swelling Verified 10/18/18 14:35 fentanyl Allergy Mild Vomiting Verified 10/18/18 14:35 ibuprofen Allergy Swelling Verified 10/18/18 14:35 aspartame AdvReac Mild Itching Verified 10/18/18 14:35 - Home Medications Home Medications: Ambulatory Orders Albuterol Sulfate Inhaler - [Ventolin HFA Inhaler -] 2 puff IH Q4H PRN #0 inhaler 11/29/16 Acetaminophen [Tylenol .Regular Strength -] 650 mg PO Q6H PRN #0 tablet Apixaban [Eliquis -] 5 mg PO BID tablet 04/29/17 Baclofen 20 mg PO TID 07/09/18 Diltiazem HCl [Diltiazem 24Hr Cd] 240 mg PO BID 07/09/18 Levocetirizine Dihydrochloride 5 mg PO HS 07/09/18 Levothyroxine [Synthroid -] 50 mcg PO DAILY 07/09/18 Rosuvastatin Calcium [Crestor] 10 mg PO DAILY 07/09/18 Venlafaxine HCl ER [Effexor Xr -] 75 mg PO DAILY 07/09/18 Famotidine 40 mg PO BID 08/07/18 Hydromorphone HCl 4 mg PO Q4H 08/07/18 Mirabegron [Myrbetriq] 50 mg PO DAILY 08/07/18 Montelukast Na [Singulair -] 10 mg PO HS 08/07/18 Alprazolam [Xanax] 0.25 mg PO TID #15 tablet MDD 3 08/15/18 Doxepin HCl [Sinequan -] 25 mg PO DAILY #30 capsule 08/15/18 Linaclotide [Linzess] 145 mcg PO DAILY #30 cap 08/15/18 Pantoprazole Sodium [Protonix -] 40 mg PO DAILY #30 tablet.ec 08/15/18 Topiramate [Topamax -] 100 mg PO DAILY #30 tablet 08/15/18 Vortioxetine Hydrobromide [Trintellix] 20 mg PO DAILY #30 tablet 08/15/18 Gabapentin [Neurontin -] 500 mg PO Q8H #21 capsule 08/30/18 Insulin (Novolog) [Novolog -] 0 units SQ AC 08/30/18 Ondansetron [Zofran -] 8 mg PO TID 08/30/18 Zolpidem Tartrate 10 mg PO HS MDD 1 09/04/18 Gabapentin [Neurontin -] 500 mg PO TID #90 capsule 09/08/18 Nitrofurantoin Monohyd/M-Cryst [Macrobid -] 100 mg PO BID #14 capsule 09/08/18 Ondansetron [Ondansetron Odt] 8 mg PO TID #90 tab.rapdis 09/09/18 Phenazopyridine HCl [Pyridium -] 100 mg PO ONCE #6 tablet 09/15/18 Fluconazole [Diflucan -] 200 mg PO DAILY #7 tablet 09/18/18 Family Disease History - Family Disease History Family Disease History: Diabetes: Mother (Alive: heart surgery), Heart Disease: Mother, [place]: Father (: leukemia), Other: Brother (2,Healthy), Sister (1, Healthy) Review of Systems Unable to obtain ROS, reason: AMS Physical Examination Vital Signs: Vital Signs Temperature 102.6 F H 10/18/18 17:00 Pulse Rate 88 10/18/18 17:00 Respiratory Rate 18 10/18/18 17:00 Blood Pressure 134/78 10/18/18 17:00 O2 Sat by Pulse Oximetry (%) 99 10/18/18 17:00 Constitutional: Yes: No Distress, Calm, Obese, Other (Obtunded) Eyes: Yes: Conjunctiva Clear, PERRL HENT: Yes: WNL, Atraumatic, Normocephalic Neck: Yes: Other (Trach with collar) Cardiovascular: Yes: Pulse Irregular, S1, S2 Respiratory: Yes: Diminished, Rhonchi, Other (trach with collar) Gastrointestinal: Yes: Soft, Abdomen, Obese Renal/: Yes: Incontinence Breast(s): Yes: WNL Musculoskeletal: Yes: WNL Extremities: Yes: WNL Edema: No Peripheral Pulses WNL: Yes Neurological: Yes: Lethargy, Other (unable to assess cran nerves due to lethargy ) Labs: CBC, BMP 10/18/18 16:00 10/18/18 16:00 Laboratory Results - last 24 hr 10/18/18 10/18/18 10/18/18 15:50 16:00 16:00 WBC 9.7 RBC 3.73 Hgb 9.4 L Hct 30.0 L D MCV 80.3 MCH 25.3 L D MCHC 31.5 L RDW 27.7 H Plt Count 365 MPV 8.7 Absolute Neuts (auto) 6.3 Neutrophils % 65.1 Lymphocytes % 18.4 D Monocytes % 10.9 H Eosinophils % 4.4 Basophils % 1.2 Nucleated RBC % 0 Hypochromia 1+ Platelet Estimate Adequate Platelet Comment No clumping noted Anisocytosis 3+ Microcytosis 2+ Macrocytosis 1+ Tear Drop Cells 1+ PT with INR 29.80 H INR 2.50 H PTT (Actin FS) 41.3 H VBG pH POC VBG pCO2 POC VBG pO2 Mixed VBG HCO3 Sodium Potassium Chloride Carbon Dioxide Anion Gap BUN Creatinine Creat Clearance w eGFR Random Glucose Lactic Acid Calcium Total Bilirubin AST ALT Alkaline Phosphatase Creatine Kinase Troponin I Total Protein Albumin Urine Color Urine Appearance Urine pH Ur Specific [place] Urine Protein Urine Glucose (UA) Urine Ketones Urine Blood Urine Nitrite Urine Bilirubin Urine Urobilinogen Ur Leukocyte Esterase Urine WBC (Auto) Urine RBC (Auto) Ur Epithelial Cells Urine Bacteria Urine Mucus Urine Yeast Influenza A (Rapid) Negative Influenza B (Rapid) Negative 10/18/18 10/18/18 10/18/18 16:00 16:00 16:00 WBC RBC Hgb Hct MCV MCH MCHC RDW Plt Count MPV Absolute Neuts (auto) Neutrophils % Lymphocytes % Monocytes % Eosinophils % Basophils % Nucleated RBC % Hypochromia Platelet Estimate Platelet Comment Anisocytosis Microcytosis Macrocytosis Tear Drop Cells PT with INR INR PTT (Actin FS) VBG pH 7.34 POC VBG pCO2 49.4 POC VBG pO2 42.4 Mixed VBG HCO3 25.8 H Sodium 145 Potassium 3.0 L Chloride 110 H Carbon Dioxide 26 Anion Gap 9 BUN 14 Creatinine 1.7 H Creat Clearance w eGFR 31.81 Random Glucose 69 L Lactic Acid 0.7 Calcium 7.8 L Total Bilirubin 0.4 AST 39 H ALT 22 Alkaline Phosphatase 144 H Creatine Kinase 83 Troponin I 0.02 Total Protein 6.4 Albumin 2.0 L Urine Color Urine Appearance Urine pH Ur Specific [place] Urine Protein Urine Glucose (UA) Urine Ketones Urine Blood Urine Nitrite Urine Bilirubin Urine Urobilinogen Ur Leukocyte Esterase Urine WBC (Auto) Urine RBC (Auto) Ur Epithelial Cells Urine Bacteria Urine Mucus Urine Yeast Influenza A (Rapid) Influenza B (Rapid) 10/18/18 10/18/18 16:00 16:36 WBC RBC Hgb Hct MCV MCH MCHC RDW Plt Count MPV Absolute Neuts (auto) Neutrophils % Lymphocytes % Monocytes % Eosinophils % Basophils % Nucleated RBC % Hypochromia Platelet Estimate Platelet Comment Anisocytosis Microcytosis Macrocytosis Tear Drop Cells PT with INR INR PTT (Actin FS) VBG pH POC VBG pCO2 POC VBG pO2 Mixed VBG HCO3 Sodium Potassium Chloride Carbon Dioxide Anion Gap BUN Creatinine Creat Clearance w eGFR Random Glucose Lactic Acid Calcium Total Bilirubin AST ALT Alkaline Phosphatase Creatine Kinase Troponin I Cancelled Total Protein Albumin Urine Color Taylor Urine Appearance Turbid Urine pH 5.0 Ur Specific [place] 1.020 Urine Protein 1+ H Urine Glucose (UA) Negative Urine Ketones Negative Urine Blood Negative Urine Nitrite Negative Urine Bilirubin Negative Urine Urobilinogen Negative Ur Leukocyte Esterase 3+ H D Urine WBC (Auto) 1271 Urine RBC (Auto) 56 Ur Epithelial Cells Many Urine Bacteria Rare Urine Mucus Rare Urine Yeast Few Influenza A (Rapid) Influenza B (Rapid) Intake & Output 10/16/18 10/17/18 10/18/18 10/19/18 23:59 23:59 23:59 23:59 Intake Total 1000 Output Total 250 Balance 750 Weight 63.957 kg Imaging - Results Chest X-ray: Report Reviewed, Image Reviewed EKG: Image Reviewed Problem List - Problems (1) Sepsis secondary to UTI Code(s): A41.9 - SEPSIS, UNSPECIFIED ORGANISM; N39.0 - URINARY TRACT INFECTION, SITE NOT SPECIFIED (2) Acute metabolic encephalopathy Code(s): G93.41 - METABOLIC ENCEPHALOPATHY (3) Acute and chronic respiratory failure with hypoxia Code(s): J96.21 - ACUTE AND CHRONIC RESPIRATORY FAILURE WITH HYPOXIA (4) MRSA (methicillin resistant Staphylococcus aureus) colonization Code(s): Z22.322 - CARRIER OR SUSPECTED CARRIER OF METHICILLIN RESIS STAPH (5) UTI (urinary tract infection) Code(s): N39.0 - URINARY TRACT INFECTION, SITE NOT SPECIFIED (6) Hypokalemia Code(s): E87.6 - HYPOKALEMIA (7) Asthma Code(s): J45.909 - UNSPECIFIED ASTHMA, UNCOMPLICATED (8) COPD (chronic obstructive pulmonary disease) Code(s): J44.9 - CHRONIC OBSTRUCTIVE PULMONARY DISEASE, UNSPECIFIED Qualifiers: COPD type: unspecified COPD Qualified Code(s): J44.9 - Chronic obstructive pulmonary disease, unspecified (9) Bipolar 2 disorder Code(s): F31.81 - BIPOLAR II DISORDER (10) Paroxysmal atrial fibrillation Code(s): I48.0 - PAROXYSMAL ATRIAL FIBRILLATION (11) Chronic back pain Code(s): M54.9 - DORSALGIA, UNSPECIFIED; G89.29 - OTHER CHRONIC PAIN (12) GERD (gastroesophageal reflux disease) Code(s): K21.9 - GASTRO-ESOPHAGEAL REFLUX DISEASE WITHOUT ESOPHAGITIS (13) HTN (hypertension) Code(s): I10 - ESSENTIAL (PRIMARY) HYPERTENSION Qualifiers: (14) Hyperlipidemia Code(s): E78.5 - HYPERLIPIDEMIA, UNSPECIFIED Qualifiers: (15) Neuropathy Code(s): G62.9 - POLYNEUROPATHY, UNSPECIFIED (16) Drug abuse and dependence Code(s): F19.20 - OTHER PSYCHOACTIVE SUBSTANCE DEPENDENCE, UNCOMPLICATED (17) Opioid dependence Code(s): F11.20 - OPIOID DEPENDENCE, UNCOMPLICATED Qualifiers: Substance use status: uncomplicated Qualified Code(s): F11.20 - Opioid dependence, uncomplicated Assessment/Plan This is a 52 y/o woman admitted for Sepsis secondary to UTI, Acute Metabolic Encephalopathy for further evaluation of their emergent condition. Plan: 1. Sepsis secondary to UTI UA: +1 protein, +3 leukocyte esterase, WBC 1271 Urine Culture-pending Ertapenam given in ED will continue Appreciate ID consult Monitor vitals CBC, BMP in am Tylenol prn 2. Acute Metabolic Encephalopathy Likely secondary to Sepsis vs UTI vs Hypoxia Neurochecks Fall precautions Monitor vitals Monitor CBC, BMP Ammonia Level in am 3. Acute on Chronic Hypoxic Hypercapnic Respiratory Failure s/p Trach Trach collar to vent Trach care Chest Xray-no pneumothorax, no infiltrate, ?atelectasis in the left upper lobe Appreciate Pulm consult Continue home meds Monitor Spo2, vitals 4. Hypokalemia K 3.0 Will replete with K- riders x2 Recheck K in am EKG- reviewed 5. HTN stable Monitor BP Continue home meds with parameters Monitor renal function 6. Paroxysmal Afib stable [id number] 3 EKG reviewed Continue home meds, when pt is at baseline 7.IDDM stable BGMs ISS 8. Hypothyroidism Continue home med TSH in am 9. Bipolar Disorder Hold meds secondary to AMS Reassess in am, will resume meds when pt is back to baseline 10. Chronic Back Pain Hold meds secondary to AMS Will resume when patient is at baseline FEN Gentle IVF Replete lytes prn NPO DVT ppx SCDs Heparin SQ Dispo: Requires Inpatient Care Visit type - Emergency Visit Emergency Visit: Yes ED Registration Date: 10/18/18 Care time: The patient presented to the Emergency Department on the above date and was hospitalized for further evaluation of their emergent condition. - New Patient This patient is new to me today: Yes Date on this admission: 10/18/18 - Critical Care Critical Care patient: No
[2018-10-18] MEDS ORDERED: ACETAMINOPHEN 1000 MG/100 ML VIAL (NON FORMULARY) IVPB PRN (20:50)
[2018-10-18] MEDS: DEXTROSE 5%-0.45% SALINE 1,000 ML IV SCH (22:00)
[2018-10-19] MEDS: KCL 10 MEQ IVPB 10 MEQ/100 ML INFUS.BAG IVPB SCH ×2 (01:51→03:19)
[2018-10-19 07:07] LABS: EOS % 7.2 % (0-4.5); HEMATOCRIT 30.5 % (32.4-45.2); LYMPH % 14.5 % (8-40); MCH 23.9 pg (25.7-33.7); MCHC 29.5 g/dl (32.0-36.0); MEAN CELL VOLUME 81.1 fl (80-96); MEAN PLT VOLUME 8.6 fl (7.5-11.1); MONO % 8.8 % (3.8-10.2); NEUT % 68.6 % (42.8-82.8); PLATELET COUNT 326 K/MM3 (134-434); RBC 3.77 M/mm3 (3.60-5.2); WHITE BLOOD COUNT 10.1 K/mm3 (4.0-10.0)
[2018-10-19 07:08] LABS: BASO % 0.9 % (0-2.0)
[2018-10-19 07:50] LABS: ALK PHOS 140 U/L (45-117); ANION GAP 9 MMOL/L (8-16); BILIRUBIN,TOTAL 0.4 mg/dL (0.2-1); BLOOD UREA NITROGEN 13 mg/dL (7-18); CALCIUM 7.8 mg/dL (8.5-10.1); CHLORIDE 112 mmol/L (98-107); CO2 26 mmol/L (21-32); CREATININE 1.4 mg/dL (0.55-1.3); GLUCOSE,RANDOM 65 mg/dL (74-106); MAGNESIUM 1.8 mg/dL (1.8-2.4); PHOSPHOROUS 2.7 mg/dL (2.5-4.9); POTASSIUM 3.5 mmol/L (3.5-5.1); SGOT/AST 33 U/L (15-37); SGPT/ALT 20 U/L (13-61); SODIUM 146 mmol/L (136-145); TOT PROT 6.3 g/dl (6.4-8.2)
--- NOTE | 2018-10-19 09:01 | PN ---
Progress Note, Physician - Current Medication List Current Medications: Active Medications Acetaminophen (Ofirmev Injection -) 1,000 mg IVPB Q6H PRN PRN Reason: FEVER Dextrose/Sodium Chloride (D5-1/2ns -) 1,000 mls @ 42 mls/hr IV ASDIR EMMY Last Admin: 10/18/18 22:00 Dose: 42 mls/hr Ertapenem 1 gm/ Sodium (Chloride) 50 mls @ 100 mls/hr IVPB DAILY [facility] - Objective Vital Signs: Vital Signs Temperature 99.5 F 10/19/18 06:00 Pulse Rate 100 H 10/19/18 06:00 Respiratory Rate 20 10/19/18 06:00 Blood Pressure 116/71 10/19/18 06:00 O2 Sat by Pulse Oximetry (%) 100 10/18/18 22:45 Labs: CBC, BMP 10/19/18 06:30 10/19/18 06:30 INR, PTT INR 2.50 (0.83-1.09) H 10/18/18 16:00 Problem List - Problems (1) Sepsis secondary to UTI Assessment/Plan: UA: +1 protein, +3 leukocyte esterase, WBC 1271 Urine Culture-pending Ertapenam given in ED will continue Appreciate ID consult Monitor vitals Tylenol prn Code(s): A41.9 - SEPSIS, UNSPECIFIED ORGANISM; N39.0 - URINARY TRACT INFECTION, SITE NOT SPECIFIED (2) Acute on chronic respiratory failure with hypoxia and hypercapnia Assessment/Plan: Trach collar to vent Trach care Chest Xray-no pneumothorax, no infiltrate, ?atelectasis in the left upper lobe Appreciate Pulm consult Continue home meds Monitor Spo2, vitals Code(s): J96.21 - ACUTE AND CHRONIC RESPIRATORY FAILURE WITH HYPOXIA; J96.22 - ACUTE AND CHRONIC RESPIRATORY FAILURE WITH HYPERCAPNIA (3) Diabetes Assessment/Plan: stable BGMs ISS Code(s): E11.9 - TYPE 2 DIABETES MELLITUS WITHOUT COMPLICATIONS (4) Fever Assessment/Plan: -as above Code(s): R50.9 - FEVER, UNSPECIFIED (5) Acute metabolic encephalopathy Assessment/Plan: Likely secondary to Sepsis vs UTI vs Hypoxia Neurochecks Fall precautions Monitor vitals Monitor CBC, BMP Ammonia Level Code(s): G93.41 - METABOLIC ENCEPHALOPATHY (6) Electrolyte abnormality Assessment/Plan: K 3.0 repleted with K- riders x2 Recheck K Code(s): E87.8 - OTH DISORDERS OF ELECTROLYTE AND FLUID BALANCE, NEC (7) Afib Assessment/Plan: stable [id number] EKG reviewed Continue home meds, when pt is at baseline Code(s): I48.91 - UNSPECIFIED ATRIAL FIBRILLATION (8) Bipolar 1 disorder Assessment/Plan: Hold meds secondary to AMS Reassess in am, will resume meds when pt is back to baseline Psych Code(s): F31.9 - BIPOLAR DISORDER, UNSPECIFIED (9) Diabetes mellitus Assessment/Plan: bgm Code(s): E11.9 - TYPE 2 DIABETES MELLITUS WITHOUT COMPLICATIONS Qualifiers: Diabetes mellitus type: type 2
[2018-10-19] MEDS ORDERED: PT OWN MED DRAWER 7, Y5N ONE (09:29)
[2018-10-19] MEDS ORDERED: ERTAPENEM SODIUM 1 GM/50 ML PRE-DOCKED IVPB SCH (10:00)
[2018-10-19] MEDS: ERTAPENEM SODIUM 1 GM in SODIUM CHLORIDE 50 ML IVPB SCH (11:46)
--- NOTE | 2018-10-19 11:53 | CON.PSY ---
Psychiatry Consult Chief Complaint: Patient redamitted with AMS. KNown to me андрей humphrey previous admissions. Patient is sedated and unable to speak. Symptoms: reports: Impaired Concentration - Previous Psychiatric Treatment Outpatient: Less than 6 mos ago Inpatient: 2 or more prior admissions - Previous Substance Abuse Treatment Outpatient: None Inpatient: None - Reason for Previous Treatment Reason for Previous Treatment: Biploar Illness - Current Medications Current Medications: Active Medications Acetaminophen (Ofirmev Injection -) 1,000 mg IVPB Q6H PRN PRN Reason: FEVER Dextrose/Sodium Chloride (D5-1/2ns -) 1,000 mls @ 42 mls/hr IV ASDIR [facility] Last Admin: 10/18/18 22:00 Dose: 42 mls/hr Ertapenem 1 gm/ Sodium (Chloride) 50 mls @ 100 mls/hr IVPB DAILY [facility] Last Admin: 10/19/18 11:46 Dose: 100 mls/hr - Allergies Allergies: Allergies Allergy/AdvReac Type Severity Reaction Status Date / Time oxycodone [Oxycodone] Allergy Severe Nausea Verified 10/18/18 14:35 oxycodone HCl [From Percocet] Allergy Severe Nausea Verified 10/18/18 14:35 aspirin Allergy Mild Verified 10/18/18 14:35 blueberry [Blueberry] Allergy Mild Swelling Verified 10/18/18 14:35 fentanyl Allergy Mild Vomiting Verified 10/18/18 14:35 ibuprofen Allergy Swelling Verified 10/18/18 14:35 aspartame AdvReac Mild Itching Verified 10/18/18 14:35 - Current Living Status Usual Living Arrangement: With Significant Other - Current Mental Status Evaluation Appearance: Disheveled Attitude: Guarded - Affect Affect: Constrictive Appropriateness: Not Appropriate - Mood Mood: Other - Speech/Language Expressive: Delayed - Psychomotor Activity Psychomotor Activity: Slowed - Thought Process Thought Process: [place] - Thought Content Hallucinations: Absent Delusions: Absent - Self Perception Self Perception: Depersonalization - Cognition Attention: Diminished Memory, Immediate Recall: Impaired Memory, Remote: Impaired - Concentration Serial Sevens Intact: No Simple Calculations Intact: No - Abstraction Proverb Interpretation: Impaired Judgement: Moderately Impaired - Insight Insight: Impaired - Homicidal Ideation Homicidal Ideation: No Assessment/Plan Restart Psych meds when she is medically stable.
--- NOTE | 2018-10-19 12:35 | EKG ---
Test Reason : Blood Pressure : / mmHG Vent. Rate : 125 BPM Atrial Rate : 125 BPM P-R Int : 146 ms QRS Dur : 084 ms QT Int : 310 ms P-R-T Axes : 041 016 054 degrees QTc Int : 447 ms SINUS TACHYCARDIA POSSIBLE LEFT ATRIAL ENLARGEMENT BORDERLINE ECG Confirmed by MD OBDULIO, YADIRA ([id number]) on 10/19/2018 12:35:24 PM Referred By: Confirmed By:YADIRA MAK MD
--- NOTE | 2018-10-19 13:39 | CONSULT ---
Consult Consult Specialty:: PM&R - History of Present Illness History of Present Illness: This is a 52 year old woman with a medical history of bipolar disorder, anxiety , depression, paroxysmal A fib, HTN, asthma/ COPD with chronic hypoxic hypercapnic respiratory failure s/p trach, UGIB, DM, hypothyroidism, uterine cancer, basal cell cancer, thoracic spine OM, chronic LBP, who was recently hospitalized for sepsis due to PNA then discharged to [facility], who returned to [facility] 10/18/18 with AMS and fevers. She was diagnosed with metabolic encephalopathy attributed to urosepsis (blood and urine cultures pending), as well as acute on chronic respiratory failure with hypoxia. Psych was consulted, who recommended resuming psych meds once medically stable. She was not seen by PT. Physiatry is being consulted for further recommendations. - Past Medical History Cardio/Vascular: Yes: AFIB (Paroxysmal), HTN, Hyperlipdemia Pulmonary: Yes: Asthma, COPD, O2 Dependent, Previously Intubated Gastrointestinal: Yes: GI Bleed Renal/: Yes: Cancer (Uterine), Other ([place] in the past) ...LMP Comment: unknown, pt not able to communicate ...: No Infectious Disease: Yes: C-Diff (june 2014), Other (Osteomyelitis of thoracic spine) Psych: Yes: Anxiety, Bipolar, Depression Musculoskeletal: Yes: Chronic low back pain, Other (multiple vertebral fractures ) Endocrine: Yes: Diabetes Mellitus, Hypothyroidism Additional Medical History: Frequent c/o abdominal pain-extensive w/u in the past negative. Presumed adhesions from prior surgeries. - Past Surgical History Past Surgical History: Yes: Appendectomy, Colectomy (By description, right colon resection with anastamosis noted on colonoscopy 2013), Hysterectomy (ADE/ BSO), Stent - Alcohol/Substance Use Hx Alcohol Use: No - Smoking History Smoking history: Former smoker Have you smoked in the past 12 months: No Aproximately how many cigarettes per day: 3 If you are a former smoker, when did you quit?: 2014 - Social History Usual Living Arrangement: With Significant Other 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) History of Recent Travel: No Home Medications - Allergies Allergies/Adverse Reactions: Allergies Allergy/AdvReac Type Severity Reaction Status Date / Time oxycodone [Oxycodone] Allergy Severe Nausea Verified 10/18/18 14:35 oxycodone HCl [From Percocet] Allergy Severe Nausea Verified 10/18/18 14:35 aspirin Allergy Mild Verified 10/18/18 14:35 blueberry [Blueberry] Allergy Mild Swelling Verified 10/18/18 14:35 fentanyl Allergy Mild Vomiting Verified 10/18/18 14:35 ibuprofen Allergy Swelling Verified 10/18/18 14:35 aspartame AdvReac Mild Itching Verified 10/18/18 14:35 - Home Medications Home Medications: Ambulatory Orders Albuterol Sulfate Inhaler - [Ventolin HFA Inhaler -] 2 puff IH Q4H PRN #0 inhaler 11/29/16 Acetaminophen [Tylenol .Regular Strength -] 650 mg PO Q6H PRN #0 tablet Apixaban [Eliquis -] 5 mg PO BID tablet 04/29/17 Baclofen 20 mg PO TID 07/09/18 Diltiazem HCl [Diltiazem 24Hr Cd] 240 mg PO BID 07/09/18 Levocetirizine Dihydrochloride 5 mg PO HS 07/09/18 Levothyroxine [Synthroid -] 50 mcg PO DAILY 07/09/18 Rosuvastatin Calcium [Crestor] 10 mg PO DAILY 07/09/18 Venlafaxine HCl ER [Effexor Xr -] 75 mg PO DAILY 07/09/18 Famotidine 40 mg PO BID 08/07/18 Hydromorphone HCl 4 mg PO Q4H 08/07/18 Mirabegron [Myrbetriq] 50 mg PO DAILY 08/07/18 Montelukast Na [Singulair -] 10 mg PO HS 08/07/18 Alprazolam [Xanax] 0.25 mg PO TID #15 tablet MDD 3 08/15/18 Doxepin HCl [Sinequan -] 25 mg PO DAILY #30 capsule 08/15/18 Linaclotide [Linzess] 145 mcg PO DAILY #30 cap 08/15/18 Pantoprazole Sodium [Protonix -] 40 mg PO DAILY #30 tablet.ec 08/15/18 Topiramate [Topamax -] 100 mg PO DAILY #30 tablet 08/15/18 Vortioxetine Hydrobromide [Trintellix] 20 mg PO DAILY #30 tablet 08/15/18 Gabapentin [Neurontin -] 500 mg PO Q8H #21 capsule 10/08/18 Insulin (Novolog) [Novolog -] 0 units SQ AC 08/30/18 Ondansetron [Zofran -] 8 mg PO TID 08/30/18 Zolpidem Tartrate 10 mg PO HS MDD 1 09/04/18 Gabapentin [Neurontin -] 500 mg PO TID #90 capsule 09/08/18 Nitrofurantoin Monohyd/M-Cryst [Macrobid -] 100 mg PO BID #14 capsule 09/08/18 Ondansetron [Ondansetron Odt] 8 mg PO TID #90 tab.rapdis 09/09/18 Phenazopyridine HCl [Pyridium -] 100 mg PO ONCE #6 tablet 09/15/18 Fluconazole [Diflucan -] 200 mg PO DAILY #7 tablet 09/18/18 Family Disease History - Family Disease History Family Disease History: Diabetes: Mother (Alive: heart surgery), Heart Disease: Mother, [place]: Father (: leukemia), Other: Brother (2,Healthy), Sister (1, Healthy) Review of Systems Findings/Remarks: denies fevers, chills, changes in hearing/ vision/ mood, CP, SOB, abdominal pain , vomiting, dysuria Notes nausea, constipation, diarrhea, with B lower leg pain and chronic LBP Physical Exam Vital Signs: Vital Signs Temperature 99.5 F 10/19/18 06:00 Pulse Rate 100 H 10/19/18 06:00 Respiratory Rate 20 10/19/18 06:00 Blood Pressure 116/71 10/19/18 06:00 O2 Sat by Pulse Oximetry (%) 100 10/18/18 22:45 Musculoskeletal: Yes: Other (General: calm F lying in bed NAD, AAO x2 (not time) N/M: B shoulder flexion to 60 degrees, 4/5 BUE, 1/5 B HF, 2/5 B KE then 1/5 B DF/ EHL with B PF contractures Extremities: no BLE pitting edema, +B calf tenderness without erythema and negative B Rick's sign) Labs: CBC, BMP 10/19/18 06:30 10/19/18 06:30 Imaging - Results Chest X-ray: Report Reviewed (10/18/18 no significant change) Cat Scan: Report Reviewed (CT head no acute pathology) Assessment/Plan Impression: 1) Deficits mobility/ ADLs 2) Deconditioning 3) Gait abnormality 4) Metabolic encephalopathy due to urosepsis 5) Acute on chronic respiratory failure with hx asthma/ COPD s/p trach 6) hx bipolar disorder, anxiety, depression 7) hx paroxysmal A fib, HTN 8) hx UGIB 9) DM 10) Hypothyroidism 11) hx uterine cancer 12) Basal cell cancer 13) hx thoracic spine OM, chronic LBP 14) Overweight 15) Up to date pneumovax, no documented flu shot 16) Anemia Recommendations: 1) PT for stretching strengthening ROM and functional mobility 2) Falls, safety precautions 3) Cardiopulmonary precautions 4) Diabetic precautions 5) DVT ppx: off AC due to disease chronicity 6) Skin protection: float heels, frequent turning 7) Monitor CBC given anemia 8) Continue plan per primary team 9) Nutrition consult for overweight 10) Discharge planning: she will need course inpatient rehabilitation once medically stable Thank you for this referral.
--- NOTE | 2018-10-19 14:21 | CON.ID ---
Consult Consult Specialty:: infectious disease Referred by:: dr sanchez Reason for Consultation:: fever - History of Present Illness Chief Complaint: fever, lethargy History of Present Illness: 52 yo [place] sent from [place]- was getting vancomycin to complete 28 days for MRSA bacteremia- discharged 10/04 from [facility] with picc line she has history of copd, PAF, htn, diabetes, with chronic trach now alert no complaints - History Source History Provided By: Patient, Family Member Limitations to Obtaining History: Clinical Condition - Past Medical History Cardio/Vascular: Yes: AFIB (Paroxysmal), HTN, Hyperlipdemia Pulmonary: Yes: Asthma, COPD, O2 Dependent, Previously Intubated Gastrointestinal: Yes: GI Bleed Renal/: Yes: Cancer (Uterine), Other ([place] in the past) ...LMP Comment: unknown, pt not able to communicate ...: No Infectious Disease: Yes: C-Diff (june 2014), Other (Osteomyelitis of thoracic spine) Psych: Yes: Anxiety, Bipolar, Depression Musculoskeletal: Yes: Chronic low back pain, Other (multiple vertebral fractures ) Endocrine: Yes: Diabetes Mellitus, Hypothyroidism Additional Medical History: Frequent c/o abdominal pain-extensive w/u in the past negative. Presumed adhesions from prior surgeries. - Past Surgical History Past Surgical History: Yes: Appendectomy, Colectomy (By description, right colon resection with anastamosis noted on colonoscopy 2013), Hysterectomy (ADE/ BSO), Stent Additional Surgical History: thoracic spine surgery. left hip ORIF - Alcohol/Substance Use Hx Alcohol Use: No - Smoking History Smoking history: Former smoker Have you smoked in the past 12 months: No Aproximately how many cigarettes per day: 3 If you are a former smoker, when did you quit?: 2015 - Social History Usual Living Arrangement: [facility] 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) History of Recent Travel: No Home Medications - Allergies Allergies/Adverse Reactions: Allergies Allergy/AdvReac Type Severity Reaction Status Date / Time oxycodone [Oxycodone] Allergy Severe Nausea Verified 10/18/18 14:35 oxycodone HCl [From Percocet] Allergy Severe Nausea Verified 10/18/18 14:35 aspirin Allergy Mild Verified 10/18/18 14:35 blueberry [Blueberry] Allergy Mild Swelling Verified 10/18/18 14:35 fentanyl Allergy Mild Vomiting Verified 10/18/18 14:35 ibuprofen Allergy Swelling Verified 10/18/18 14:35 aspartame AdvReac Mild Itching Verified 10/18/18 14:35 - Home Medications Home Medications: Ambulatory Orders Albuterol Sulfate Inhaler - [Ventolin HFA Inhaler -] 2 puff IH Q4H PRN #0 inhaler 11/29/16 Acetaminophen [Tylenol .Regular Strength -] 650 mg PO Q6H PRN #0 tablet Apixaban [Eliquis -] 5 mg PO BID tablet 04/29/17 Baclofen 20 mg PO TID 07/09/18 Diltiazem HCl [Diltiazem 24Hr Cd] 240 mg PO BID 07/09/18 Levocetirizine Dihydrochloride 5 mg PO HS 07/09/18 Levothyroxine [Synthroid -] 50 mcg PO DAILY 07/09/18 Rosuvastatin Calcium [Crestor] 10 mg PO DAILY 07/09/18 Venlafaxine HCl ER [Effexor Xr -] 75 mg PO DAILY 07/09/18 Famotidine 40 mg PO BID 08/07/18 Hydromorphone HCl 4 mg PO Q4H 08/07/18 Mirabegron [Myrbetriq] 50 mg PO DAILY 08/07/18 Montelukast Na [Singulair -] 10 mg PO HS 08/07/18 Alprazolam [Xanax] 0.25 mg PO TID #15 tablet MDD 3 08/15/18 Doxepin HCl [Sinequan -] 25 mg PO DAILY #30 capsule 08/15/18 Linaclotide [Linzess] 145 mcg PO DAILY #30 cap 08/15/18 Pantoprazole Sodium [Protonix -] 40 mg PO DAILY #30 tablet.ec 08/15/18 Topiramate [Topamax -] 100 mg PO DAILY #30 tablet 08/15/18 Vortioxetine Hydrobromide [Trintellix] 20 mg PO DAILY #30 tablet 08/15/18 Gabapentin [Neurontin -] 500 mg PO Q8H #21 capsule 08/30/18 Insulin (Novolog) [Novolog -] 0 units SQ AC 08/30/18 Ondansetron [Zofran -] 8 mg PO TID 08/30/18 Zolpidem Tartrate 10 mg PO HS MDD 1 09/04/18 Gabapentin [Neurontin -] 500 mg PO TID #90 capsule 09/08/18 Nitrofurantoin Monohyd/M-Cryst [Macrobid -] 100 mg PO BID #14 capsule 09/08/18 Ondansetron [Ondansetron Odt] 8 mg PO TID #90 tab.rapdis 09/09/18 Phenazopyridine HCl [Pyridium -] 100 mg PO ONCE #6 tablet 09/15/18 Fluconazole [Diflucan -] 200 mg PO DAILY #7 tablet 09/18/18 Family Disease History - Family Disease History Family Disease History: Diabetes: Mother (Alive: heart surgery), Heart Disease: Mother, [place]: Father (: leukemia), Other: Brother (2,Healthy), Sister (1, Healthy) Review of Systems - Review of Systems Constitutional: reports: Fever, Lethargy Eyes: reports: No Symptoms HENT: reports: No Symptoms Neck: reports: No Symptoms Cardiovascular: reports: No Symptoms Respiratory: reports: No Symptoms Gastrointestinal: reports: No Symptoms Genitourinary: reports: No Symptoms Physical Exam Vital Signs: Vital Signs Temperature 99.5 F 10/19/18 06:00 Pulse Rate 100 H 10/19/18 06:00 Respiratory Rate 20 10/19/18 06:00 Blood Pressure 116/71 10/19/18 06:00 O2 Sat by Pulse Oximetry (%) 100 10/18/18 22:45 Constitutional: Yes: No Distress, Calm Eyes: Yes: Conjunctiva Clear HENT: Yes: Atraumatic, Normocephalic Neck: Yes: Supple, Other (tracheostomy) Cardiovascular: Yes: Regular Rate and Rhythm Respiratory: Yes: CTA Bilaterally Gastrointestinal: Yes: Normal Bowel Sounds. No: Tenderness, Epigastrium ...Rectal Exam: Yes: Deferred Renal/: No: Bladder Distention Extremities: Yes: Other (picc line site no erythema or tenderness to palpation) Edema: No Neurological: Yes: Alert Labs: CBC, BMP 10/19/18 06:30 10/19/18 06:30 cultures pending Imaging - Results Chest X-ray: Report Reviewed, Image Reviewed Problem List - Problems (1) Fever Code(s): R50.9 - FEVER, UNSPECIFIED (2) UTI (urinary tract infection) Code(s): N39.0 - URINARY TRACT INFECTION, SITE NOT SPECIFIED (3) Bacteremia due to methicillin resistant Staphylococcus aureus Code(s): R78.81 - BACTEREMIA Assessment/Plan seems to have responded to the ertapenem (pror history of ESBL ecoli uti) should have completed 28 days vancomycin by now- can d/c picc line if not in use given clincal response, less likley to have picc line infection obtain med list from [place] continue Ertapenem for UTI contact isolation f/u cultures
--- NOTE | 2018-10-19 14:46 | PN ---
Progress Note (short form) - Note Progress Note: PULMONARY CONSULTATION DICTATED 10/19/18 IMP CHRONIC HYPOXEMIC/HYPERCAPNEIC RESPIRATORY FAILURE END STAGE COPD S/P TRACH ALTERED MENTAL STATUS SECONDARY TO TOXIC METABOLIC ENCEPHALOPATHY UROSEPSIS PAF RECENT PNEUMONIA HTN BIPOLAR DISORDER PLAN IV ABX O2 VIA TRACH COLLAR INHALED BRONCHODILATORS IVF MONITOR LYTES CHECK CULTURES AC DR RUFFIN Problem List - Problems (1) Acute metabolic encephalopathy Code(s): G93.41 - METABOLIC ENCEPHALOPATHY (2) Bipolar 1 disorder Code(s): F31.9 - BIPOLAR DISORDER, UNSPECIFIED (3) Sepsis secondary to UTI Code(s): A41.9 - SEPSIS, UNSPECIFIED ORGANISM; N39.0 - URINARY TRACT INFECTION, SITE NOT SPECIFIED (4) Chronic respiratory failure Code(s): J96.10 - CHRONIC RESPIRATORY FAILURE, UNSP W HYPOXIA OR HYPERCAPNIA (5) Diabetes Code(s): E11.9 - TYPE 2 DIABETES MELLITUS WITHOUT COMPLICATIONS (6) Fever Code(s): R50.9 - FEVER, UNSPECIFIED (7) Hypothyroid Code(s): E03.9 - HYPOTHYROIDISM, UNSPECIFIED Qualifiers: Hypothyroidism type: unspecified Qualified Code(s): E03.9 - Hypothyroidism , unspecified (8) Tracheostomy in place Code(s): Z93.0 - TRACHEOSTOMY STATUS (9) COPD (chronic obstructive pulmonary disease) Code(s): J44.9 - CHRONIC OBSTRUCTIVE PULMONARY DISEASE, UNSPECIFIED Qualifiers: COPD type: unspecified COPD Qualified Code(s): J44.9 - Chronic obstructive pulmonary disease, unspecified (10) Chronic respiratory failure with hypoxia Code(s): J96.11 - CHRONIC RESPIRATORY FAILURE WITH HYPOXIA (11) HTN (hypertension) Code(s): I10 - ESSENTIAL (PRIMARY) HYPERTENSION Qualifiers:
[2018-10-19] MEDS ORDERED: ALBUTEROL SO4 2.5/IPRATROPIUM 0.5 INH SOL 3 ML VIAL.NEB. NEB PRN (14:48)
--- NOTE | 2018-10-19 15:13 | CONS ---
PULMONARY CONSULTATION DATE OF CONSULTATION: 10/19/2018 REFERRING PHYSICIAN: Kaz Goel MD The patient is a 52-year-old female known to me in previous hospitalization with a past medical history of COPD with chronic hypoxemic, hypercapnic respiratory failure status post tracheostomy, paroxysmal atrial fibrillation, hypertension, insulin-dependent diabetes mellitus, hypothyroidism, bipolar disorder, recently hospitalized at [facility] secondary to sepsis and pneumonia, was recently discharged about 2 weeks ago with a PICC line for IV vancomycin. Patient was readmitted from the SNF on October 18, secondary to altered mental status and a fever of 103. On admission, the patient was felt to have possibly urosepsis. She was placed on broad-spectrum antibiotics. No further history available at this time. PAST MEDICAL HISTORY: Again includes advanced COPD with chronic hypoxemic hypercapnic respiratory failure status post tracheostomy, paroxysmal atrial fibrillation, atrial fibrillation, pneumonia, insulin-dependent diabetes mellitus, hypertension, hypothyroidism, bipolar. REVIEW OF SYSTEMS: Unable to obtain at this time. CURRENT MEDICATIONS: Include acetaminophen IV, ertapenem,. PHYSICAL EXAMINATION: General: The patient is a well-developed, well-nourished female, awake, confused, in no acute respiratory distress on tracheostomy collar. Vital Signs: She is afebrile, temperature is 99.5; blood pressure is 116/71; respiratory rate is 20; O2 saturation is 100%. HEENT: Exam is normocephalic, atraumatic. Neck: Supple. Heart: Irregular. S1, S2. Lungs: She has scattered bilateral rhonchi. Abdomen: Soft. Bowel sounds positive. Extremities: No cyanosis or edema. LABORATORY DATA: INR 2.5. WBC is 10.1, hemoglobin 9, hematocrit 30.5 with a platelet count of 226,000. Sodium is 146, BUN 13, creatinine 1.4. Chest x-ray: No acute infiltrates and/or effusions. Head CT: No evidence of acute pathology. IMPRESSION: 1. Altered mental status secondary to urosepsis. 2. Chronic hypoxemic hypercapnic respiratory failure secondary to advanced chronic obstructive pulmonary disease. 3. Advanced chronic obstructive pulmonary disease. 4. Paroxysmal atrial fibrillation. 5. History of pneumonia. 6. Bipolar. 7. Hypothyroidism. 8. Insulin-dependent diabetes mellitus. 9. Hypertension. PLAN: IV antibiotics as per Infectious Disease, O2 via tracheostomy collar, inhaled bronchodilators, follow up on cultures, follow up chest x-ray. IV fluids. Monitor blood sugars. Joseph VIZCARRA/[id number] MTDD
[2018-10-19] MEDS: DEXTROSE 5%-0.45% SALINE 1,000 ML IV SCH (21:36)
--- NOTE | 2018-10-20 08:19 | PN ---
Progress Note, Physician - Current Medication List Current Medications: Active Medications Acetaminophen (Ofirmev Injection -) 1,000 mg IVPB Q6H PRN PRN Reason: FEVER Albuterol/Ipratropium (Duoneb -) 1 amp NEB Q4H PRN PRN Reason: SHORTNESS OF BREATH Dextrose/Sodium Chloride (D5-1/2ns -) 1,000 mls @ 42 mls/hr IV ASDIR [facility] Last Admin: 10/19/18 21:36 Dose: 42 mls/hr Ertapenem 1 gm/ Sodium (Chloride) 50 mls @ 100 mls/hr IVPB DAILY [facility] Last Admin: 10/19/18 11:46 Dose: 100 mls/hr - Objective Vital Signs: Vital Signs Temperature 98.3 F 10/20/18 06:00 Pulse Rate 103 H 10/20/18 06:00 Respiratory Rate 19 10/20/18 06:00 Blood Pressure 114/86 10/20/18 06:00 O2 Sat by Pulse Oximetry (%) 96 10/19/18 19:02 Cardiovascular: Yes: S1, S2 Respiratory: Yes: Rhonchi, Other (trach) Gastrointestinal: Yes: Normal Bowel Sounds, Soft Labs: CBC, BMP 10/19/18 06:30 10/19/18 06:30 INR, PTT INR 2.50 (0.83-1.09) H 10/18/18 16:00 Problem List - Problems (1) Sepsis secondary to UTI Assessment/Plan: UA: +1 protein, +3 leukocyte esterase, WBC 1271 Urine Culture-pending Ertapenam given in ED will continue Appreciate ID consult Monitor vitals Tylenol prn Code(s): A41.9 - SEPSIS, UNSPECIFIED ORGANISM; N39.0 - URINARY TRACT INFECTION, SITE NOT SPECIFIED (2) Acute on chronic respiratory failure with hypoxia and hypercapnia Assessment/Plan: Trach collar to vent Trach care Chest Xray-no pneumothorax, no infiltrate, ?atelectasis in the left upper lobe Appreciate Pulm consult Continue home meds Monitor Spo2, vitals Code(s): J96.21 - ACUTE AND CHRONIC RESPIRATORY FAILURE WITH HYPOXIA; J96.22 - ACUTE AND CHRONIC RESPIRATORY FAILURE WITH HYPERCAPNIA (3) Diabetes Assessment/Plan: stable BGMs ISS Code(s): E11.9 - TYPE 2 DIABETES MELLITUS WITHOUT COMPLICATIONS (4) Fever Assessment/Plan: -as above Code(s): R50.9 - FEVER, UNSPECIFIED (5) Acute metabolic encephalopathy Assessment/Plan: Likely secondary to Sepsis vs UTI vs Hypoxia Neurochecks Fall precautions Monitor vitals Monitor CBC, BMP Ammonia Level Code(s): G93.41 - METABOLIC ENCEPHALOPATHY (6) Electrolyte abnormality Assessment/Plan: K 3.0 repleted with K- riders x2 Recheck K Code(s): E87.8 - OTH DISORDERS OF ELECTROLYTE AND FLUID BALANCE, NEC (7) Afib Assessment/Plan: stable [id number] EKG reviewed Continue home meds, when pt is at baseline Code(s): I48.91 - UNSPECIFIED ATRIAL FIBRILLATION (8) Bipolar 1 disorder Assessment/Plan: Psych Code(s): F31.9 - BIPOLAR DISORDER, UNSPECIFIED (9) Diabetes mellitus Assessment/Plan: bgm Code(s): E11.9 - TYPE 2 DIABETES MELLITUS WITHOUT COMPLICATIONS Qualifiers: Diabetes mellitus type: type 2
[2018-10-20] MEDS ORDERED: ONDANSETRON 4 MG TABLET PO PRN (10:32)
[2018-10-20] MEDS ORDERED: PT OWN MED DRAWER 7, Y5N ONE ×2 (10:37→21:37)
[2018-10-20] MEDS: ERTAPENEM SODIUM 1 GM in SODIUM CHLORIDE 50 ML IVPB SCH (10:55)
[2018-10-20] MEDS ORDERED: GABAPENTIN 100 MG CAPSULE (FP) PO SCH (14:00)
[2018-10-20] MEDS: BACLOFEN 10 MG TABLET (FP) PO SCH ×2 (14:29→21:40)
[2018-10-20] MEDS: GABAPENTIN 400 MG, GABAPENTIN 100 MG PO SCH ×2 (14:29→21:39)
--- NOTE | 2018-10-20 14:42 | PN ---
Progress Note, Physician History of Present Illness: pulmonary awake,less confused,-resp distress - Current Medication List Current Medications: Active Medications Acetaminophen (Ofirmev Injection -) 1,000 mg IVPB Q6H PRN PRN Reason: FEVER Albuterol/Ipratropium (Duoneb -) 1 amp NEB Q4H PRN PRN Reason: SHORTNESS OF BREATH Apixaban (Eliquis -) 5 mg PO BID [facility] Baclofen (Lioresal -) 20 mg PO TID [facility] Doxepin HCl (Sinequan -) 25 mg PO DAILY [facility] Gabapentin 400 mg/ Gabapentin (100 mg) 500 mg PO TID [facility] Dextrose/Sodium Chloride (D5-1/2ns -) 1,000 mls @ 42 mls/hr IV ASDIR [facility] Last Admin: 10/19/18 21:36 Dose: 42 mls/hr Ertapenem 1 gm/ Sodium (Chloride) 50 mls @ 100 mls/hr IVPB DAILY [facility] Last Admin: 10/20/18 10:55 Dose: 100 mls/hr Montelukast Sodium (Singulair -) 10 mg PO HS [facility] Ondansetron HCl (Zofran -) 8 mg PO TID PRN PRN Reason: NAUSEA Pantoprazole Sodium (Protonix -) 40 mg PO DAILY [facility] Ranitidine HCl (Zantac -) 300 mg PO HS [facility] Rosuvastatin Calcium (Crestor -) 10 mg PO HS [facility] Topiramate (Topamax -) 100 mg PO DAILY [facility] Venlafaxine HCl (Effexor Xr -) 75 mg PO DAILY [facility] - Objective Vital Signs: Vital Signs Temperature 98.3 F 10/20/18 06:00 Pulse Rate 109 H 10/20/18 13:38 Respiratory Rate 16 10/20/18 13:38 Blood Pressure 121/72 10/20/18 13:38 O2 Sat by Pulse Oximetry (%) 96 10/20/18 11:38 Constitutional: Yes: Well Nourished, Calm Eyes: Yes: WNL HENT: Yes: WNL Neck: Yes: Supple (trach) Cardiovascular: Yes: Regular Rate and Rhythm, S1, S2 Respiratory: Yes: Wheezes (few scattered wheezes) Gastrointestinal: Yes: Normal Bowel Sounds, Soft Extremities: Yes: WNL Edema: No Labs: CBC, BMP Problem List - Problems (1) Acute metabolic encephalopathy Code(s): G93.41 - METABOLIC ENCEPHALOPATHY (2) Bipolar 1 disorder Code(s): F31.9 - BIPOLAR DISORDER, UNSPECIFIED (3) Sepsis secondary to UTI Code(s): A41.9 - SEPSIS, UNSPECIFIED ORGANISM; N39.0 - URINARY TRACT INFECTION, SITE NOT SPECIFIED (4) Chronic respiratory failure Code(s): J96.10 - CHRONIC RESPIRATORY FAILURE, UNSP W HYPOXIA OR HYPERCAPNIA (5) Diabetes Code(s): E11.9 - TYPE 2 DIABETES MELLITUS WITHOUT COMPLICATIONS (6) Fever Code(s): R50.9 - FEVER, UNSPECIFIED (7) Hypothyroid Code(s): E03.9 - HYPOTHYROIDISM, UNSPECIFIED Qualifiers: Hypothyroidism type: unspecified Qualified Code(s): E03.9 - Hypothyroidism , unspecified (8) Tracheostomy in place Code(s): Z93.0 - TRACHEOSTOMY STATUS (9) COPD (chronic obstructive pulmonary disease) Code(s): J44.9 - CHRONIC OBSTRUCTIVE PULMONARY DISEASE, UNSPECIFIED Qualifiers: COPD type: unspecified COPD Qualified Code(s): J44.9 - Chronic obstructive pulmonary disease, unspecified (10) Chronic respiratory failure with hypoxia Code(s): J96.11 - CHRONIC RESPIRATORY FAILURE WITH HYPOXIA (11) HTN (hypertension) Code(s): I10 - ESSENTIAL (PRIMARY) HYPERTENSION Qualifiers: Assessment/Plan IMP CHRONIC HYPOXEMIC/HYPERCAPNEIC RESPIRATORY FAILURE END STAGE COPD S/P TRACH ALTERED MENTAL STATUS SECONDARY TO TOXIC METABOLIC ENCEPHALOPATHY improving UROSEPSIS PAF RECENT PNEUMONIA HTN BIPOLAR DISORDER PLAN IV ABX O2 VIA TRACH COLLAR INHALED BRONCHODILATORS IVF MONITOR MIRELLA RUFFIN Problem List - Problems (1) Acute metabolic encephalopathy Code(s): G93.41 - METABOLIC ENCEPHALOPATHY (2) Bipolar 1 disorder Code(s): F31.9 - BIPOLAR DISORDER, UNSPECIFIED (3) Sepsis secondary to UTI Code(s): A41.9 - SEPSIS, UNSPECIFIED ORGANISM; N39.0 - URINARY TRACT INFECTION, SITE NOT SPECIFIED (4) Chronic respiratory failure Code(s): J96.10 - CHRONIC RESPIRATORY FAILURE, UNSP W HYPOXIA OR HYPERCAPNIA (5) Diabetes Code(s): E11.9 - TYPE 2 DIABETES MELLITUS WITHOUT COMPLICATIONS (6) Fever Code(s): R50.9 - FEVER, UNSPECIFIED (7) Hypothyroid Code(s): E03.9 - HYPOTHYROIDISM, UNSPECIFIED Qualifiers: Hypothyroidism type: unspecified Qualified Code(s): E03.9 - Hypothyroidism , unspecified (8) Tracheostomy in place Code(s): Z93.0 - TRACHEOSTOMY STATUS (9) COPD (chronic obstructive pulmonary disease) Code(s): J44.9 - CHRONIC OBSTRUCTIVE PULMONARY DISEASE, UNSPECIFIED Qualifiers: COPD type: unspecified COPD Qualified Code(s): J44.9 - Chronic obstructive pulmonary disease, unspecified (10) Chronic respiratory failure with hypoxia Code(s): J96.11 - CHRONIC RESPIRATORY FAILURE WITH HYPOXIA (11) HTN (hypertension) Code(s): I10 - ESSENTIAL (PRIMARY) HYPERTENSION Qualifiers:
--- NOTE | 2018-10-20 15:28 | PN ---
Progress Note (short form) - Note Progress Note: clinically improved Vital Signs Period Temp Pulse Resp BP Sys/Dan Pulse Ox Last 24 Hr 98.2 F-98.3 F 92-109 16-19 112-121/72-86 96-96 cor-rrr lungs clear abd soft,nt ext no edema CBC, BMP 10/19/18 06:30 10/19/18 06:30 Microbiology 10/18/18 16:36 Urine - Urine Suprapubic Urine Culture - Final Yeast Like Organism 10/18/18 15:45 Blood - Peripheral Venous Blood Culture - Preliminary NO GROWTH OBTAINED AFTER 24 HOURS, INCUBATION TO CONTINUE FOR 4 DAYS. 10/18/18 15:45 Blood - Peripheral Venous Blood Culture - Preliminary NO GROWTH OBTAINED AFTER 24 HOURS, INCUBATION TO CONTINUE FOR 4 DAYS. a/p fevers resolved has completed 28 days of vancomycin for MRSA bacteremia continue ertapenem f/u cultures in am history of copd with chronic trach Problem List - Problems (1) Fever Code(s): R50.9 - FEVER, UNSPECIFIED (2) UTI (urinary tract infection) Code(s): N39.0 - URINARY TRACT INFECTION, SITE NOT SPECIFIED (3) Bacteremia due to methicillin resistant Staphylococcus aureus Code(s): R78.81 - BACTEREMIA
[2018-10-20] MEDS ORDERED: GABAPENTIN 100 MG CAPSULE (FP) ONE ×2 (16:55→21:32)
[2018-10-20] MEDS ORDERED: GABAPENTIN 400 MG CAPSULE (FP) ONE ×2 (16:55→21:31)
[2018-10-20] MEDS: DEXTROSE 5%-0.45% SALINE 1,000 ML IV SCH ×2 (21:35→21:46)
[2018-10-20] MEDS: MONTELUKAST NA 10 MG TABLET PO SCH (21:40)
[2018-10-20] MEDS: RANITIDINE HCL 150 MG TABLET (FP) PO SCH (21:40)
[2018-10-20] MEDS: APIXABAN 5 MG TABLET PO SCH (22:36)
[2018-10-21] MEDS ORDERED: GABAPENTIN 400 MG CAPSULE (FP) ONE ×3 (05:45→20:41)
[2018-10-21] MEDS ORDERED: GABAPENTIN 100 MG CAPSULE (FP) ONE ×3 (05:46→20:41)
[2018-10-21] MEDS: BACLOFEN 10 MG TABLET (FP) PO SCH ×3 (06:53→22:51)
[2018-10-21] MEDS: GABAPENTIN 400 MG, GABAPENTIN 100 MG PO SCH ×3 (06:53→22:52)
[2018-10-21] MEDS ORDERED: PT OWN MED DRAWER 7, Y5N ONE ×2 (11:04→22:38)
[2018-10-21] MEDS: DOXEPIN HCL 25 MG CAPSULE PO SCH (11:17)
[2018-10-21] MEDS: TOPIRAMATE 100 MG TABLET PO SCH (11:17)
[2018-10-21] MEDS: VENLAFAXINE HCL 75 MG E.R. CAPSULES (FP) PO SCH (11:17)
[2018-10-21] MEDS: APIXABAN 5 MG TABLET PO SCH ×2 (11:17→23:28)
[2018-10-21] MEDS: ERTAPENEM SODIUM 1 GM in SODIUM CHLORIDE 50 ML IVPB SCH (11:17)
[2018-10-21] MEDS: PANTOPRAZOLE 40 MG TABLET (FP) PO SCH (11:17)
--- NOTE | 2018-10-21 12:05 | PN ---
Progress Note (short form) - Note Progress Note: Sleeping in NAD on Trach collar. Arousable to voice command. Mildly confused. - Objective Intake & Output 10/18/18 10/19/18 10/20/18 10/21/18 23:59 23:59 23:59 23:59 Intake Total 1042 578 736 504 Output Total 250 Balance 792 578 736 504 Weight 141 lb 141 lb Last Vital Signs Temp Pulse Resp BP Pulse Ox 98.4 F 101 H 20 117/72 98 10/21/18 06:00 10/21/18 08:01 10/21/18 06:00 10/21/18 06:00 10/21/18 08:01 Active Medications Acetaminophen (Ofirmev Injection -) 1,000 mg IVPB Q6H PRN PRN Reason: FEVER Albuterol/Ipratropium (Duoneb -) 1 amp NEB Q4H PRN PRN Reason: SHORTNESS OF BREATH Apixaban (Eliquis -) 5 mg PO BID [facility] Last Admin: 10/21/18 11:17 Dose: 5 mg Baclofen (Lioresal -) 20 mg PO TID [facility] Last Admin: 10/21/18 06:53 Dose: 20 mg Doxepin HCl (Sinequan -) 25 mg PO DAILY [facility] Last Admin: 10/21/18 11:17 Dose: 25 mg Gabapentin 400 mg/ Gabapentin (100 mg) 500 mg PO TID [facility] Last Admin: 10/21/18 06:53 Dose: 500 mg Dextrose/Sodium Chloride (D5-1/2ns -) 1,000 mls @ 42 mls/hr IV ASDIR [facility] Last Admin: 10/20/18 21:46 Dose: 42 mls/hr Ertapenem 1 gm/ Sodium (Chloride) 50 mls @ 100 mls/hr IVPB DAILY [facility] Last Admin: 10/21/18 11:17 Dose: 100 mls/hr Montelukast Sodium (Singulair -) 10 mg PO [facility] Last Admin: 10/20/18 21:40 Dose: 10 mg Ondansetron HCl (Zofran -) 8 mg PO TID PRN PRN Reason: NAUSEA Pantoprazole Sodium (Protonix -) 40 mg PO DAILY [facility] Last Admin: 10/21/18 11:17 Dose: 40 mg Ranitidine HCl (Zantac -) 300 mg PO [facility] Last Admin: 10/20/18 21:40 Dose: 300 mg Rosuvastatin Calcium (Crestor -) 10 mg PO HS [facility] Topiramate (Topamax -) 100 mg PO DAILY [facility] Last Admin: 10/21/18 11:17 Dose: 100 mg Venlafaxine HCl (Effexor Xr -) 75 mg PO DAILY [facility] Last Admin: 10/21/18 11:17 Dose: 75 mg Constitutional: Yes: Drowsy, arousable, NAD Eyes: Yes: WNL HENT: Yes: WNL Neck: Yes: Supple (trach) Cardiovascular: Yes: Regular Rate and Rhythm, S1, S2 Respiratory: Yes: scattered rhonchi, no Wheezes Gastrointestinal: Yes: Normal Bowel Sounds, Soft Extremities: Yes: WNL Edema: No Labs: Laboratory Results - last 24 hr 10/20/18 10/21/18 20:44 07:16 POC Glucometer 110 98 Problem List - Problems (1) Acute metabolic encephalopathy Code(s): G93.41 - METABOLIC ENCEPHALOPATHY (2) Bipolar 1 disorder Code(s): F31.9 - BIPOLAR DISORDER, UNSPECIFIED (3) Sepsis secondary to UTI Code(s): A41.9 - SEPSIS, UNSPECIFIED ORGANISM; N39.0 - URINARY TRACT INFECTION, SITE NOT SPECIFIED (4) Chronic respiratory failure Code(s): J96.10 - CHRONIC RESPIRATORY FAILURE, UNSP W HYPOXIA OR HYPERCAPNIA (5) Diabetes Code(s): E11.9 - TYPE 2 DIABETES MELLITUS WITHOUT COMPLICATIONS (6) Fever Code(s): R50.9 - FEVER, UNSPECIFIED (7) Hypothyroid Code(s): E03.9 - HYPOTHYROIDISM, UNSPECIFIED Qualifiers: Hypothyroidism type: unspecified Qualified Code(s): E03.9 - Hypothyroidism , unspecified (8) Tracheostomy in place Code(s): Z93.0 - TRACHEOSTOMY STATUS (9) COPD (chronic obstructive pulmonary disease) Code(s): J44.9 - CHRONIC OBSTRUCTIVE PULMONARY DISEASE, UNSPECIFIED Qualifiers: COPD type: unspecified COPD Qualified Code(s): J44.9 - Chronic obstructive pulmonary disease, unspecified (10) Chronic respiratory failure with hypoxia Code(s): J96.11 - CHRONIC RESPIRATORY FAILURE WITH HYPOXIA (11) HTN (hypertension) Code(s): I10 - ESSENTIAL (PRIMARY) HYPERTENSION Qualifiers: Assessment/Plan IMP CHRONIC HYPOXEMIC/HYPERCAPNEIC RESPIRATORY FAILURE END STAGE COPD S/P TRACH ALTERED MENTAL STATUS SECONDARY TO TOXIC METABOLIC ENCEPHALOPATHY improving UROSEPSIS PAF RECENT PNEUMONIA HTN BIPOLAR DISORDER PLAN IV ABX PER ID O2 VIA TRACH COLLAR INHALED BRONCHODILATORS IVF MONITOR MIRELLA STRINGER
--- NOTE | 2018-10-21 14:12 | PN ---
Progress Note, Physician - Current Medication List Current Medications: Active Medications Acetaminophen (Ofirmev Injection -) 1,000 mg IVPB Q6H PRN PRN Reason: FEVER Albuterol/Ipratropium (Duoneb -) 1 amp NEB Q4H PRN PRN Reason: SHORTNESS OF BREATH Apixaban (Eliquis -) 5 mg PO BID [facility] Last Admin: 10/21/18 11:17 Dose: 5 mg Baclofen (Lioresal -) 20 mg PO TID [facility] Last Admin: 10/21/18 06:53 Dose: 20 mg Doxepin HCl (Sinequan -) 25 mg PO DAILY [facility] Last Admin: 10/21/18 11:17 Dose: 25 mg Gabapentin 400 mg/ Gabapentin (100 mg) 500 mg PO TID [facility] Last Admin: 10/21/18 06:53 Dose: 500 mg Dextrose/Sodium Chloride (D5-1/2ns -) 1,000 mls @ 42 mls/hr IV ASDIR [facility] Last Admin: 10/20/18 21:46 Dose: 42 mls/hr Ertapenem 1 gm/ Sodium (Chloride) 50 mls @ 100 mls/hr IVPB DAILY [facility] Last Admin: 10/21/18 11:17 Dose: 100 mls/hr Montelukast Sodium (Singulair -) 10 mg PO HS [facility] Last Admin: 10/20/18 21:40 Dose: 10 mg Ondansetron HCl (Zofran -) 8 mg PO TID PRN PRN Reason: NAUSEA Pantoprazole Sodium (Protonix -) 40 mg PO DAILY [facility] Last Admin: 10/21/18 11:17 Dose: 40 mg Ranitidine HCl (Zantac -) 300 mg PO HS [facility] Last Admin: 10/20/18 21:40 Dose: 300 mg Rosuvastatin Calcium (Crestor -) 10 mg PO HS [facility] Topiramate (Topamax -) 100 mg PO DAILY [facility] Last Admin: 10/21/18 11:17 Dose: 100 mg Venlafaxine HCl (Effexor Xr -) 75 mg PO DAILY [facility] Last Admin: 10/21/18 11:17 Dose: 75 mg - Objective Vital Signs: Vital Signs Temperature 98.1 F 10/21/18 13:45 Pulse Rate 109 H 10/21/18 13:45 Respiratory Rate 18 10/21/18 13:45 Blood Pressure 112/61 10/21/18 13:45 O2 Sat by Pulse Oximetry (%) 98 10/21/18 08:01 Constitutional: Yes: Calm Neck: Yes: Trachea Midline, Other (trach collar) Cardiovascular: Yes: Regular Rate and Rhythm, S1, S2 Respiratory: Yes: CTA Bilaterally Gastrointestinal: Yes: Normal Bowel Sounds, Soft Neurological: Yes: Alert, Oriented (to name) Labs: CBC, BMP 10/19/18 06:30 10/19/18 06:30 INR, PTT INR 2.50 (0.83-1.09) H 10/18/18 16:00 Problem List - Problems (1) Acute metabolic encephalopathy Assessment/Plan: on ertrapenem contact isolation Code(s): G93.41 - METABOLIC ENCEPHALOPATHY (2) Bacteremia due to methicillin resistant Staphylococcus aureus Assessment/Plan: completed vacnomycin dose no fever Code(s): R78.81 - BACTEREMIA (3) Paroxysmal atrial fibrillation Assessment/Plan: eliquis Code(s): I48.0 - PAROXYSMAL ATRIAL FIBRILLATION (4) Hypothyroid Assessment/Plan: synthroid 50mcg Code(s): E03.9 - HYPOTHYROIDISM, UNSPECIFIED Qualifiers: Hypothyroidism type: unspecified Qualified Code(s): E03.9 - Hypothyroidism , unspecified (5) Chronic respiratory failure Assessment/Plan: s/p trach on trach colar Code(s): J96.10 - CHRONIC RESPIRATORY FAILURE, UNSP W HYPOXIA OR HYPERCAPNIA (6) Hypoglycemia Assessment/Plan: on dextrose ivf holding off insulin for now soft diet started bgm now bid Code(s): E16.2 - HYPOGLYCEMIA, UNSPECIFIED
--- NOTE | 2018-10-21 15:07 | PN ---
Progress Note (short form) - Note Progress Note: clinically improved much more alert Vital Signs Period Temp Pulse Resp BP Sys/Dan Pulse Ox Last 24 Hr 98.1 F-98.4 F 101-109 18-20 109-117/61-72 96-98 cor-rrr lungs clear decreased bs at bases +trach abd soft,nt ext no edema CBC, BMP 10/19/18 06:30 10/19/18 06:30 Microbiology 10/18/18 15:45 Blood - Peripheral Venous Blood Culture - Preliminary NO GROWTH OBTAINED AFTER 48 HOURS, INCUBATION TO CONTINUE FOR 3 DAYS. 10/18/18 15:45 Blood - Peripheral Venous Blood Culture - Preliminary NO GROWTH OBTAINED AFTER 48 HOURS, INCUBATION TO CONTINUE FOR 3 DAYS. 10/18/18 16:36 Urine - Urine Suprapubic Urine Culture - Final Yeast Like Organism Current Medications Acetaminophen (Ofirmev Injection -) 1,000 mg IVPB Q6H PRN PRN Reason: FEVER Albuterol/Ipratropium (Duoneb -) 1 amp NEB Q4H PRN PRN Reason: SHORTNESS OF BREATH Alprazolam (Xanax -) 0.25 mg PO Q8H PRN PRN Reason: ANXIETY Apixaban (Eliquis -) 5 mg PO BID [facility] Last Admin: 10/21/18 11:17 Dose: 5 mg Baclofen (Lioresal -) 20 mg PO TID [facility] Last Admin: 10/21/18 06:53 Dose: 20 mg Doxepin HCl (Sinequan -) 25 mg PO DAILY [facility] Last Admin: 10/21/18 11:17 Dose: 25 mg Gabapentin 400 mg/ Gabapentin (100 mg) 500 mg PO TID [facility] Last Admin: 10/21/18 06:53 Dose: 500 mg Dextrose/Sodium Chloride (D5-1/2ns -) 1,000 mls @ 42 mls/hr IV ASDIR [facility] Last Admin: 10/20/18 21:46 Dose: 42 mls/hr Ertapenem 1 gm/ Sodium (Chloride) 50 mls @ 100 mls/hr IVPB DAILY [facility] Last Admin: 10/21/18 11:17 Dose: 100 mls/hr Montelukast Sodium (Singulair -) 10 mg PO HS [facility] Last Admin: 10/20/18 21:40 Dose: 10 mg Ondansetron HCl (Zofran -) 8 mg PO TID PRN PRN Reason: NAUSEA Pantoprazole Sodium (Protonix -) 40 mg PO DAILY [facility] Last Admin: 10/21/18 11:17 Dose: 40 mg Ranitidine HCl (Zantac -) 300 mg PO HS [facility] Last Admin: 10/20/18 21:40 Dose: 300 mg Rosuvastatin Calcium (Crestor -) 10 mg PO HS [facility] Topiramate (Topamax -) 100 mg PO DAILY [facility] Last Admin: 10/21/18 11:17 Dose: 100 mg Venlafaxine HCl (Effexor Xr -) 75 mg PO DAILY [facility] Last Admin: 10/21/18 11:17 Dose: 75 mg a/p fevers resolved has completed 28 days of vancomycin for MRSA bacteremia day #3 ertapenem, cultures negative, will d/c history of copd with chronic trach Problem List - Problems (1) Fever Code(s): R50.9 - FEVER, UNSPECIFIED (2) UTI (urinary tract infection) Code(s): N39.0 - URINARY TRACT INFECTION, SITE NOT SPECIFIED (3) Bacteremia due to methicillin resistant Staphylococcus aureus Code(s): R78.81 - BACTEREMIA
[2018-10-21] MEDS: DEXTROSE 5%-0.45% SALINE 1,000 ML IV SCH (22:51)
[2018-10-21] MEDS: ROSUVASTATIN CA 10 MG TABLET (FP) PO SCH (22:51)
[2018-10-21] MEDS: RANITIDINE HCL 150 MG TABLET (FP) PO SCH (22:52)
[2018-10-21] MEDS: MONTELUKAST NA 10 MG TABLET PO SCH (22:52)
[2018-10-21] MEDS: ALPRAZolam 0.25 MG TABLET PO PRN (22:52)
[2018-10-22] MEDS ORDERED: GABAPENTIN 100 MG CAPSULE (FP) ONE ×3 (05:39→21:04)
[2018-10-22] MEDS ORDERED: GABAPENTIN 400 MG CAPSULE (FP) ONE ×3 (05:39→21:04)
[2018-10-22] MEDS: BACLOFEN 10 MG TABLET (FP) PO SCH ×3 (06:25→22:48)
[2018-10-22] MEDS: GABAPENTIN 400 MG, GABAPENTIN 100 MG PO SCH ×3 (06:25→22:48)
--- NOTE | 2018-10-22 09:13 | PN ---
Progress Note, Physician - Current Medication List Current Medications: Active Medications Acetaminophen (Ofirmev Injection -) 1,000 mg IVPB Q6H PRN PRN Reason: FEVER Albuterol/Ipratropium (Duoneb -) 1 amp NEB Q4H PRN PRN Reason: SHORTNESS OF BREATH Alprazolam (Xanax -) 0.25 mg PO Q8H PRN PRN Reason: ANXIETY Last Admin: 10/21/18 22:52 Dose: 0.25 mg Apixaban (Eliquis -) 5 mg PO BID [facility] Last Admin: 10/21/18 23:28 Dose: 5 mg Baclofen (Lioresal -) 20 mg PO TID [facility] Last Admin: 10/22/18 06:25 Dose: 20 mg Doxepin HCl (Sinequan -) 25 mg PO DAILY [facility] Last Admin: 10/21/18 11:17 Dose: 25 mg Gabapentin 400 mg/ Gabapentin (100 mg) 500 mg PO TID [facility] Last Admin: 10/22/18 06:25 Dose: 500 mg Dextrose/Sodium Chloride (D5-1/2ns -) 1,000 mls @ 42 mls/hr IV ASDIR [facility] Last Admin: 10/21/18 22:51 Dose: 42 mls/hr Montelukast Sodium (Singulair -) 10 mg PO HS [facility] Last Admin: 10/21/18 22:52 Dose: 10 mg Ondansetron HCl (Zofran -) 8 mg PO TID PRN PRN Reason: NAUSEA Pantoprazole Sodium (Protonix -) 40 mg PO DAILY [facility] Last Admin: 10/21/18 11:17 Dose: 40 mg Ranitidine HCl (Zantac -) 300 mg PO HS [facility] Last Admin: 10/21/18 22:52 Dose: 300 mg Rosuvastatin Calcium (Crestor -) 10 mg PO HS [facility] Last Admin: 10/21/18 22:51 Dose: 10 mg Topiramate (Topamax -) 100 mg PO DAILY [facility] Last Admin: 10/21/18 11:17 Dose: 100 mg Venlafaxine HCl (Effexor Xr -) 75 mg PO DAILY [facility] Last Admin: 10/21/18 11:17 Dose: 75 mg - Objective Vital Signs: Vital Signs Temperature 98.0 F 10/22/18 06:00 Pulse Rate 118 H 10/22/18 06:00 Respiratory Rate 20 10/22/18 06:00 Blood Pressure 108/70 10/22/18 06:00 O2 Sat by Pulse Oximetry (%) 99 10/21/18 21:00 Cardiovascular: Yes: Tachycardia, S1, S2 Respiratory: Yes: Regular, CTA Bilaterally Gastrointestinal: Yes: Normal Bowel Sounds, Soft Labs: CBC, BMP 10/19/18 06:30 10/19/18 06:30 INR, PTT INR 2.50 (0.83-1.09) H 10/18/18 16:00 Problem List - Problems (1) Sepsis secondary to UTI Code(s): A41.9 - SEPSIS, UNSPECIFIED ORGANISM; N39.0 - URINARY TRACT INFECTION, SITE NOT SPECIFIED (2) Acute on chronic respiratory failure with hypoxia and hypercapnia Code(s): J96.21 - ACUTE AND CHRONIC RESPIRATORY FAILURE WITH HYPOXIA; J96.22 - ACUTE AND CHRONIC RESPIRATORY FAILURE WITH HYPERCAPNIA (3) Diabetes Code(s): E11.9 - TYPE 2 DIABETES MELLITUS WITHOUT COMPLICATIONS (4) Fever Code(s): R50.9 - FEVER, UNSPECIFIED (5) Acute metabolic encephalopathy Code(s): G93.41 - METABOLIC ENCEPHALOPATHY (6) Electrolyte abnormality Code(s): E87.8 - OTH DISORDERS OF ELECTROLYTE AND FLUID BALANCE, NEC (7) Afib Code(s): I48.91 - UNSPECIFIED ATRIAL FIBRILLATION (8) Bipolar 1 disorder Code(s): F31.9 - BIPOLAR DISORDER, UNSPECIFIED (9) Diabetes mellitus Code(s): E11.9 - TYPE 2 DIABETES MELLITUS WITHOUT COMPLICATIONS Qualifiers: Diabetes mellitus type: type 2 Assessment/Plan - Problems (1) Acute metabolic encephalopathy Assessment/Plan: off ertrapenem contact isolation improving but c/o visual halucinations-??floaters Neuro carotid ct head noted Code(s): G93.41 - METABOLIC ENCEPHALOPATHY (2) Bacteremia due to methicillin resistant Staphylococcus aureus Assessment/Plan: completed vacnomycin dose no fever Code(s): R78.81 - BACTEREMIA (3) Paroxysmal atrial fibrillation Assessment/Plan: eliquis cardizem 120 Code(s): I48.0 - PAROXYSMAL ATRIAL FIBRILLATION (4) Hypothyroid Assessment/Plan: synthroid 50mcg Code(s): E03.9 - HYPOTHYROIDISM, UNSPECIFIED Qualifiers: Hypothyroidism type: unspecified Qualified Code(s): E03.9 - Hypothyroidism , unspecified (5) Chronic respiratory failure Assessment/Plan: s/p trach on trach colar Code(s): J96.10 - CHRONIC RESPIRATORY FAILURE, UNSP W HYPOXIA OR HYPERCAPNIA (6) Hypoglycemia Assessment/Plan: on dextrose ivf holding off insulin for now soft diet started bgm now bid Code(s): E16.2 - HYPOGLYCEMIA, UNSPECIFIED WILL NEED SNF PLACEMENT
--- NOTE | 2018-10-22 12:09 | PN ---
Progress Note (short form) - Note Progress Note: PULMONARY Sleeping /on Trach collar. Arousable to voice command. Lethargic as baseline Active Medications reviewed Constitutional: Yes: Drowsy, arousable, NAD Eyes: Yes: WNL HENT: Yes: WNL Neck: Yes: Supple (trach) Cardiovascular: Yes: Regular Rate and Rhythm, S1, S2 Respiratory: Yes: scattered rhonchi, no Wheezes Gastrointestinal: Yes: Normal Bowel Sounds, Soft Extremities: Yes: WNL Edema: No Labs: reviewed Problem List - Problems (1) Acute metabolic encephalopathy Code(s): G93.41 - METABOLIC ENCEPHALOPATHY (2) Bipolar 1 disorder Code(s): F31.9 - BIPOLAR DISORDER, UNSPECIFIED (3) Sepsis secondary to UTI Code(s): A41.9 - SEPSIS, UNSPECIFIED ORGANISM; N39.0 - URINARY TRACT INFECTION, SITE NOT SPECIFIED (4) Chronic respiratory failure Code(s): J96.10 - CHRONIC RESPIRATORY FAILURE, UNSP W HYPOXIA OR HYPERCAPNIA (5) Diabetes Code(s): E11.9 - TYPE 2 DIABETES MELLITUS WITHOUT COMPLICATIONS (6) Fever Code(s): R50.9 - FEVER, UNSPECIFIED (7) Hypothyroid Code(s): E03.9 - HYPOTHYROIDISM, UNSPECIFIED Qualifiers: Hypothyroidism type: unspecified Qualified Code(s): E03.9 - Hypothyroidism , unspecified (8) Tracheostomy in place Code(s): Z93.0 - TRACHEOSTOMY STATUS (9) COPD (chronic obstructive pulmonary disease) Code(s): J44.9 - CHRONIC OBSTRUCTIVE PULMONARY DISEASE, UNSPECIFIED Qualifiers: COPD type: unspecified COPD Qualified Code(s): J44.9 - Chronic obstructive pulmonary disease, unspecified (10) Chronic respiratory failure with hypoxia Code(s): J96.11 - CHRONIC RESPIRATORY FAILURE WITH HYPOXIA (11) HTN (hypertension) Code(s): I10 - ESSENTIAL (PRIMARY) HYPERTENSION Qualifiers: Assessment/Plan IMP CHRONIC HYPOXEMIC/HYPERCAPNEIC RESPIRATORY FAILURE END STAGE COPD S/P TRACH ALTERED MENTAL STATUS SECONDARY TO TOXIC METABOLIC ENCEPHALOPATHY UROSEPSIS PAF RECENT PNEUMONIA HTN BIPOLAR DISORDER PLAN IV ABX PER ID O2 VIA TRACH COLLAR INHALED BRONCHODILATORS IVF MONITOR LYTES AC NEED TO AVOID OVERSEDATION Sreedhar SEXTON MD
[2018-10-22] MEDS: PANTOPRAZOLE 40 MG TABLET (FP) PO SCH (12:27)
[2018-10-22] MEDS: VENLAFAXINE HCL 75 MG E.R. CAPSULES (FP) PO SCH (12:28)
[2018-10-22] MEDS: DOXEPIN HCL 25 MG CAPSULE PO SCH (12:28)
[2018-10-22] MEDS: TOPIRAMATE 100 MG TABLET PO SCH (12:28)
[2018-10-22] MEDS: APIXABAN 5 MG TABLET PO SCH ×2 (12:29→22:47)
--- NOTE | 2018-10-22 12:59 | PN ---
Progress Note (short form) - Note Progress Note: more alert today ?hallucinations- off ertapenem Vital Signs Period Temp Pulse Resp BP Sys/Dan Pulse Ox Last 24 Hr 98.0 F-98.7 F 109-118 18-20 93-119/59-70 99 cor-rrr lungs clear abd soft,nt ext no edema CBC, BMP 10/19/18 06:30 10/19/18 06:30 Microbiology 10/18/18 15:45 Blood - Peripheral Venous Blood Culture - Preliminary NO GROWTH OBTAINED AFTER 72 HOURS, INCUBATION TO CONTINUE FOR 2 DAYS. 10/18/18 15:45 Blood - Peripheral Venous Blood Culture - Preliminary NO GROWTH OBTAINED AFTER 72 HOURS, INCUBATION TO CONTINUE FOR 2 DAYS. 10/18/18 16:36 Urine - Urine Suprapubic Urine Culture - Final Yeast Like Organism a/p fevers resolved-stable off antibiotics has completed 28 days of vancomycin for MRSA bacteremia history of copd with chronic trach please call back if needed Problem List - Problems (1) Fever Code(s): R50.9 - FEVER, UNSPECIFIED (2) UTI (urinary tract infection) Code(s): N39.0 - URINARY TRACT INFECTION, SITE NOT SPECIFIED (3) Bacteremia due to methicillin resistant Staphylococcus aureus Code(s): R78.81 - BACTEREMIA
--- NOTE | 2018-10-22 20:20 | CONSULT ---
Consult - text type - Consultation Consultation Note: NEUROLOGY CONSULTATION is greatly appreciated This 52 yo RH woman with h/o HTN, DM, COPM, Hypothyroidism, Paroxysmal AFib and Bipolar disease is maintained on multiple meds including NOVAC. Chronic tracheostomy (fenestrated or talking trache). On Topiramate for chronic migraine headaches with visual auras. On hydromorphone 4 mg QID for chronic leg pains. Was in [place] completing course of Vancomicin for MRSA when she became confused and lethargic. Nurses describe delusions and probably, visual hallucinations, and note that they have not been present today after D/C of emepenim. The patient's mother is my patient with chronic migraine headaches and RLS CARLEY: Cushingoid. NEURO: Ox 3 but confused. Pressured speech. CN II-XII: normal Motor: Diffuse weakness. Delts 4/5. Hip flexors 2/5. Knee extensors 4-/ 5. Ankle DF 4/5. Brisk reflexes. Plantars silent Coord: No obvious dystaxia Sensory: Decreased vib feet to ankles. IMP: Non-focal exam sig for Mild OMS Diffuse weakness is probably of 2 etiologies: Proximal myopathy most likely due to steroids and disuse and Distal weakness and sensory loss suggesting diabetic peripheral neuropathy Toxic-Metabolic Encephalopathy probably multifactorial due to meds ( antibiotics, narcotics, etc), hypoxemia, infection. Migraine headaches with Aura. Restless limbs syndrome (RLS). Suggest: Continue topiramate vs migraines. Observe off antibiotics. Avoid steroids. Begin Bedside PT vs Myopathy No other specific euro Rx. or testing or diagnostic testing at this time. Thak you very much, Everton Mclean MD
[2018-10-22] MEDS ORDERED: PT OWN MED DRAWER 7, Y5N ONE (21:05)
[2018-10-22] MEDS: MONTELUKAST NA 10 MG TABLET PO SCH (22:48)
[2018-10-22] MEDS: ALPRAZolam 0.25 MG TABLET PO PRN (22:48)
[2018-10-22] MEDS: RANITIDINE HCL 150 MG TABLET (FP) PO SCH (22:48)
[2018-10-22] MEDS: ROSUVASTATIN CA 10 MG TABLET (FP) PO SCH (22:55)
[2018-10-23] MEDS ORDERED: HYDROmorphone HCL 2 MG TABLET PO STA (03:51)
[2018-10-23] MEDS ORDERED: GABAPENTIN 400 MG CAPSULE (FP) ONE ×2 (05:29→13:06)
[2018-10-23] MEDS ORDERED: GABAPENTIN 100 MG CAPSULE (FP) ONE ×2 (05:29→13:06)
[2018-10-23] MEDS: GABAPENTIN 400 MG, GABAPENTIN 100 MG PO SCH ×2 (05:38→13:10)
[2018-10-23] MEDS: BACLOFEN 10 MG TABLET (FP) PO SCH ×2 (05:38→13:10)
[2018-10-23] MEDS: VENLAFAXINE HCL 75 MG E.R. CAPSULES (FP) PO SCH (10:32)
[2018-10-23] MEDS: DOXEPIN HCL 25 MG CAPSULE PO SCH (10:32)
[2018-10-23] MEDS: APIXABAN 5 MG TABLET PO SCH (10:32)
[2018-10-23] MEDS: PANTOPRAZOLE 40 MG TABLET (FP) PO SCH (10:32)
[2018-10-23] MEDS: TOPIRAMATE 100 MG TABLET PO SCH (10:32)
[2018-10-23] MEDS: ALPRAZolam 0.25 MG TABLET PO PRN (10:32)
[2018-10-23 11:17] VITALS: BP 104/56; TEMP 98.9
[2018-10-23 11:54] VITALS: PULSE 100
--- NOTE | 2018-10-23 12:22 | DS ---
Physical Examination Vital Signs: Vital Signs Temperature 98.9 F 10/23/18 11:16 Pulse Rate 100 H 10/23/18 11:54 Respiratory Rate 18 10/23/18 11:16 Blood Pressure 104/56 L 10/23/18 11:16 O2 Sat by Pulse Oximetry (%) 98 10/23/18 10:00 Constitutional: Yes: Mild Distress Eyes: Yes: WNL HENT: Yes: WNL Neck: Yes: Other Cardiovascular: Yes: Regular Rate and Rhythm Respiratory: Yes: Other (TRACHCOLLAR) Gastrointestinal: Yes: Soft Renal/: Yes: Other Musculoskeletal: Yes: Muscle Weakness Extremities: Yes: Other Edema: No Wound/Incision: Yes: Other Neurological: Yes: Pre-Existing Deficit ...Motor Strength: LLE, RLE Psychiatric: Yes: Other Labs: CBC, BMP 10/19/18 06:30 10/19/18 06:30 Discharge Summary Reason For Visit: SEPSIS DUE TO URINARY TRACT INFECTION Current Active Problems Acute metabolic encephalopathy (Acute) Bacteremia due to methicillin resistant Staphylococcus aureus (Acute) Bipolar 1 disorder (Acute) Chronic respiratory failure (Acute) Electrolyte abnormality (Acute) Hypoglycemia (Acute) Sepsis secondary to UTI (Acute) Procedures: Principal: LABS/CX Hospital Course: TREATED WITH IV ABX, 02 SUPPORT, WILL NEED COFFEE MAKER SERVICER FOR TRANSFER TO HOME Condition: Stable - Instructions Diet, Activity, Other Instructions: LOW SALT/LOW FAT SEE YOUR DOCTOR AND START A HOME PHYSICIAN SERVICE FOR EASIER ACCES TO MEDICAL CARE ESPECIALLY WITH THE WINTER MONTHS. HOME HEALTH AID REFERRAL SENT Disposition: VNS/HOME HEALTH CARE - Home Medications Comprehensive Discharge Medication List: Ambulatory Orders Albuterol Sulfate Inhaler - [Ventolin HFA Inhaler -] 2 puff IH Q4H PRN #0 inhaler 11/29/16 Acetaminophen [Tylenol .Regular Strength -] 650 mg PO Q6H PRN #0 tablet Apixaban [Eliquis -] 5 mg PO BID tablet 04/29/17 Baclofen 20 mg PO TID 07/09/18 Levocetirizine Dihydrochloride 5 mg PO HS 07/09/18 Levothyroxine [Synthroid -] 50 mcg PO DAILY 07/09/18 Rosuvastatin Calcium [Crestor] 10 mg PO DAILY 07/09/18 Venlafaxine HCl ER [Effexor Xr -] 75 mg PO DAILY 07/09/18 Famotidine 40 mg PO BID 08/07/18 Hydromorphone HCl 4 mg PO Q4H 08/07/18 Mirabegron [Myrbetriq] 50 mg PO DAILY 08/07/18 Montelukast Na [Singulair -] 10 mg PO HS 08/07/18 Alprazolam [Xanax] 0.25 mg PO TID #15 tablet MDD 3 08/15/18 Doxepin HCl [Sinequan -] 25 mg PO DAILY #30 capsule 08/15/18 Linaclotide [Linzess] 145 mcg PO DAILY #30 cap 08/15/18 Pantoprazole Sodium [Protonix -] 40 mg PO DAILY #30 tablet.ec 08/15/18 Topiramate [Topamax -] 100 mg PO DAILY #30 tablet 08/15/18 Vortioxetine Hydrobromide [Trintellix] 20 mg PO DAILY #30 tablet 08/15/18 Gabapentin [Neurontin -] 500 mg PO Q8H #21 capsule 08/30/18 Insulin (Novolog) [Novolog -] 0 units SQ AC 08/30/18 Ondansetron [Zofran -] 8 mg PO TID 08/30/18 Zolpidem Tartrate 10 mg PO HS MDD 1 09/04/18 Gabapentin [Neurontin -] 500 mg PO TID #90 capsule 09/08/18 Nitrofurantoin Monohyd/M-Cryst [Macrobid -] 100 mg PO BID #14 capsule 09/08/18 Ondansetron [Zofran *Odt*] 8 mg PO TID #90 tab.rapdis 09/09/18 Phenazopyridine HCl [Pyridium -] 100 mg PO ONCE #6 tablet 09/15/18 Fluconazole [Diflucan -] 200 mg PO DAILY #7 tablet 09/18/18 Alprazolam [Xanax] 0.25 mg PO Q8H PRN tablet MDD 3 10/23/18 Diltiazem Cd [Cardizem Cd -] 120 mg PO DAILY #30 cap.cd.24h 10/23/18 Gabapentin [Neurontin -] 500 mg PO TID #60 capsule 10/23/18
--- NOTE | 2018-10-23 12:25 | PN ---
Progress Note (short form) - Note Progress Note: PULMONARY Sleeping /on Trach collar. Arousable to voice command. Lethargic as baseline Active Medications reviewed Constitutional: Yes: Drowsy, arousable, NAD Eyes: Yes: WNL HENT: Yes: WNL Neck: Yes: Supple (trach) Cardiovascular: Yes: Regular Rate and Rhythm, S1, S2 Respiratory: Yes: scattered rhonchi, no Wheezes Gastrointestinal: Yes: Normal Bowel Sounds, Soft Extremities: Yes: WNL Edema: No Labs: reviewed Problem List - Problems (1) Acute metabolic encephalopathy Code(s): G93.41 - METABOLIC ENCEPHALOPATHY (2) Bipolar 1 disorder Code(s): F31.9 - BIPOLAR DISORDER, UNSPECIFIED (3) Sepsis secondary to UTI Code(s): A41.9 - SEPSIS, UNSPECIFIED ORGANISM; N39.0 - URINARY TRACT INFECTION, SITE NOT SPECIFIED (4) Chronic respiratory failure Code(s): J96.10 - CHRONIC RESPIRATORY FAILURE, UNSP W HYPOXIA OR HYPERCAPNIA (5) Diabetes Code(s): E11.9 - TYPE 2 DIABETES MELLITUS WITHOUT COMPLICATIONS (6) Fever Code(s): R50.9 - FEVER, UNSPECIFIED (7) Hypothyroid Code(s): E03.9 - HYPOTHYROIDISM, UNSPECIFIED Qualifiers: Hypothyroidism type: unspecified Qualified Code(s): E03.9 - Hypothyroidism , unspecified (8) Tracheostomy in place Code(s): Z93.0 - TRACHEOSTOMY STATUS (9) COPD (chronic obstructive pulmonary disease) Code(s): J44.9 - CHRONIC OBSTRUCTIVE PULMONARY DISEASE, UNSPECIFIED Qualifiers: COPD type: unspecified COPD Qualified Code(s): J44.9 - Chronic obstructive pulmonary disease, unspecified (10) Chronic respiratory failure with hypoxia Code(s): J96.11 - CHRONIC RESPIRATORY FAILURE WITH HYPOXIA (11) HTN (hypertension) Code(s): I10 - ESSENTIAL (PRIMARY) HYPERTENSION Qualifiers: Assessment/Plan IMP CHRONIC HYPOXEMIC/HYPERCAPNEIC RESPIRATORY FAILURE END STAGE COPD S/P TRACH ALTERED MENTAL STATUS SECONDARY TO TOXIC METABOLIC ENCEPHALOPATHY UROSEPSIS PAF RECENT PNEUMONIA HTN BIPOLAR DISORDER PLAN O2 VIA TRACH COLLAR INHALED BRONCHODILATORS AC NEED TO AVOID OVERSEDATION TO CONTINUE CURRENT TREATMENT IN OUTPATIENT SETTING Sreedhar SEXTON MD
== END 2018-10-23 13:51 | disposition home health service (06) | DRG 871 ==
LOC: JER 14:13 → JERBED 18:12 → J5S 10-19 00:01
PROVIDERS: ADMIT Hospitalist; ATTEND Family Medicine
PROC: 3E0F7GC Introduction of Other Therapeutic Substance into Respiratory Tract, Via Natural or Artificial Opening (ICD-10-PCS; principal; 2018-10-19)
DX: A41.02 Sepsis due to Methicillin resistant Staphylococcus aureus (principal); G93.41 Metabolic encephalopathy; N17.9 Acute kidney failure, unspecified; J98.11 Atelectasis; N39.0 Urinary tract infection, site not specified; F11.20 Opioid dependence, uncomplicated; F19.20 Other psychoactive substance dependence, uncomplicated; J96.11 Chronic respiratory failure with hypoxia; J96.12 Chronic respiratory failure with hypercapnia; J44.9 Chronic obstructive pulmonary disease, unspecified; I48.0 Paroxysmal atrial fibrillation; E03.9 Hypothyroidism, unspecified; F32.9 Major depressive disorder, single episode, unspecified; M54.9 Dorsalgia, unspecified; G43.909 Migraine, unspecified, not intractable, without status migrainosus; F41.8 Other specified anxiety disorders; I10 Essential (primary) hypertension; E78.5 Hyperlipidemia, unspecified; E87.6 Hypokalemia; G89.29 Other chronic pain; K21.9 Gastro-esophageal reflux disease without esophagitis; E11.42 Type 2 diabetes mellitus with diabetic polyneuropathy; R26.9 Unspecified abnormalities of gait and mobility; E11.649 Type 2 diabetes mellitus with hypoglycemia without coma; G25.81 Restless legs syndrome; Z68.29 Body mass index [BMI] 29.0-29.9, adult; D64.9 Anemia, unspecified; E66.3 Overweight; Z93.0 Tracheostomy status; Z87.891 Personal history of nicotine dependence; Z85.42 Personal history of malignant neoplasm of other parts of uterus
CPT/HCPCS: 36415; 70450-TC; 71045-TC-FY; 80053; 81003; 81015; 82140; 82550; 82803; 82962; 83605; 83735; 84100; 84484; 85025; 85610; 85730; 87040; 87086; 87804; 93005; 93010; 93880-TC; 94640; 97161-GP; 99284-25; J0131; J0475; J7030

== ENCOUNTER 2018-10-27 11:43 | Emergency (ER) | payer OTHER ==
[2018-10-27 12:33] VITALS: BMI 30.3
--- NOTE | 2018-10-27 13:42 | PDOC ---
History of Present Illness - General Chief Complaint: Shortness of Breath Stated Complaint: DIFFICULTY BREATH Time Seen by Provider: 10/27/18 13:32 - History of Present Illness Initial Comments: 10/27/18 13:37 52 yo F with h/o HTN, IDDM, Hypothyroidism, Bipolar Disorder,COPD, Chronic Hypoxic Hypercapnic respiratory failure s/p trach, Paroxysmal A-fib, recent hospitalization ( 10/18-10/23/18) for sespis/bacteremia/UTI, who p/w SOB, and cough. Patient reports onset of SOB at rest beginning yesterday evening, with no identifiable triggers. Also endorses wheezing, and productive cough with yellow/green sputum beginning yesterday evening. Symptoms worsening, despite home duoneb therapy. Patient states that brother helped assist her with trach collar change yesterday. Patient denies N/V, palpitations, hemoptysis, leg swelling/pain, orthopnea, PND , F/C, CP, urinary complaints, hematuria, BPR, abdominal pain, diarrhea, constipation, lightheadedness, weakness, sensory changes. PMHx: as noted above ROS: as noted Allergies: Oxycodone, ASA, Fentanyl, Ibuprofen PMD: Manolo Jaquez Past History - Past Medical History Allergies/Adverse Reactions: Allergies Allergy/AdvReac Type Severity Reaction Status Date / Time oxycodone [Oxycodone] Allergy Severe Nausea Verified 10/18/18 14:35 oxycodone HCl [From Percocet] Allergy Severe Nausea Verified 10/18/18 14:35 aspirin Allergy Mild Verified 10/18/18 14:35 blueberry [Blueberry] Allergy Mild Swelling Verified 10/18/18 14:35 fentanyl Allergy Mild Vomiting Verified 10/18/18 14:35 ibuprofen Allergy Swelling Verified 10/18/18 14:35 aspartame AdvReac Mild Itching Verified 10/18/18 14:35 Home Medications: Ambulatory Orders Albuterol Sulfate Inhaler - [Ventolin HFA Inhaler -] 2 puff IH Q4H PRN #0 inhaler 11/29/16 Acetaminophen [Tylenol .Regular Strength -] 650 mg PO Q6H PRN #0 tablet Apixaban [Eliquis -] 5 mg PO BID tablet 04/29/17 Baclofen 20 mg PO TID 07/09/18 Levocetirizine Dihydrochloride 5 mg PO HS 07/09/18 Levothyroxine [Synthroid -] 50 mcg PO DAILY 07/09/18 Rosuvastatin Calcium [Crestor] 10 mg PO DAILY 07/09/18 Venlafaxine HCl ER [Effexor Xr -] 75 mg PO DAILY 07/09/18 Famotidine 40 mg PO BID 08/07/18 Hydromorphone HCl 4 mg PO Q4H 08/07/18 Mirabegron [Myrbetriq] 50 mg PO DAILY 08/07/18 Montelukast Na [Singulair -] 10 mg PO HS 08/07/18 Doxepin HCl [Sinequan -] 25 mg PO DAILY #30 capsule 08/15/18 Linaclotide [Linzess] 145 mcg PO DAILY #30 cap 08/15/18 Pantoprazole Sodium [Protonix -] 40 mg PO DAILY #30 tablet.ec 08/15/18 Topiramate [Topamax -] 100 mg PO DAILY #30 tablet 08/15/18 Vortioxetine Hydrobromide [Trintellix] 20 mg PO DAILY #30 tablet 08/15/18 Gabapentin [Neurontin -] 500 mg PO Q8H #21 capsule 08/30/18 Insulin (Novolog) [Novolog -] 0 units SQ AC 08/30/18 Ondansetron [Zofran -] 8 mg PO TID 08/30/18 Zolpidem Tartrate 10 mg PO HS MDD 1 09/04/18 Gabapentin [Neurontin -] 500 mg PO TID #90 capsule 09/08/18 Ondansetron [Zofran *Odt*] 8 mg PO TID #90 tab.rapdis 09/09/18 Fluconazole [Diflucan -] 200 mg PO DAILY #7 tablet 09/18/18 Alprazolam [Xanax] 0.25 mg PO Q8H PRN tablet MDD 3 10/23/18 Diltiazem Cd [Cardizem Cd -] 120 mg PO DAILY #30 cap.cd.24h 10/23/18 Gabapentin [Neurontin -] 500 mg PO TID #60 capsule 10/23/18 Anemia: Yes Asthma: Yes (COPD, trach #8) Cancer: Yes (UTERINE) Cardiac Disorders: Yes (A-fib) CVA: No COPD: Yes CHF: No Dementia: No Diabetes: Yes GI Disorders: Yes (colitis, SB resection, GERD) Disorders: Yes (KIDNEY STENTS) HTN: Yes Hypercholesterolemia: Yes Liver Disease: No Psychiatric Problems: Yes (ANXIETY) Seizures: Yes (5 yrs ago) Thyroid Disease: No - Surgical History Abdominal Surgery: Yes (BOWEL RESECTION) Appendectomy: Yes (removed 1998) Cardiac Surgery: No Cholecystectomy: No Lung Surgery: No Neurologic Surgery: No Orthopedic Surgery: Yes (Back Sx T7,6) - Immunization History Td Vaccination: Yes TDAP Vaccination: Yes Immunization Up to Date: Yes - Suicide/Smoking/Psychosocial Hx Smoking Status: No Smoking History: Former smoker Have you smoked in the past 12 months: No Number of Cigarettes Smoked Daily: 3 If you are a former smoker, when did you quit?: 1997 Information on smoking cessation initiated: No 'Breaking Loose' booklet given: 03/12/15 Hx Alcohol Use: No Drug/Substance Use Hx: No Substance Use Type: None Hx Substance Use Treatment: No Review of Systems - Review of Systems Comments:: 10/27/18 13:42 GENERAL/CONSTITUTIONAL: No fever or chills. No weakness. HEAD, EYES, EARS, NOSE AND THROAT: No change in vision. No ear pain or discharge. No sore throat. CARDIOVASCULAR: + Shortness of breath. No CP RESPIRATORY: +cough, wheezing. Absent hemoptysis. GASTROINTESTINAL: No nausea, vomiting, diarrhea or constipation. GENITOURINARY: No dysuria, frequency, or change in urination. MUSCULOSKELETAL: No joint or muscle swelling or pain. No neck or back pain. SKIN: No rash NEUROLOGIC: No headache, vertigo, loss of consciousness, or change in strength/ sensation. ENDOCRINE: No increased thirst. No abnormal weight change HEMATOLOGIC/LYMPHATIC: No anemia, easy bleeding, or history of blood clots. ALLERGIC/IMMUNOLOGIC: No hives or skin allergy. *Physical Exam - Vital Signs Last Vital Signs Temp Pulse Resp BP Pulse Ox 99 F 109 H 20 90/64 100 10/27/18 12:00 10/27/18 12:00 10/27/18 12:00 10/27/18 12:00 10/27/18 12:00 - Physical Exam Comments: 10/27/18 13:43 GENERAL: Awake, alert, and fully oriented, in no acute distress HEAD: No signs of trauma, normocephalic, atraumatic EYES: PERRLA, EOMI, sclera anicteric, conjunctiva clear ENT:Trach collar in place. Hearing grossly normal, nares patent, oropharynx clear without exudates. Moist mucosa NECK: Normal ROM, supple, no lymphadenopathy, JVD, or masses LUNGS: Diffuse exp rhconic through all lung garcia. No distress, speaks full sentences,absent rales. HEART: Regular rate and rhythm, normal S1 and S2, no murmurs, rubs or gallops, peripheral pulses normal and equal bilaterally. EXTREMITIES : Normal inspection, Normal range of motion, no edema. No clubbing or cyanosis. SKIN: Warm, Dry, normal turgor, no rashes or lesions noted Moderate Sedation - Procedure Monitoring Vital Signs: Procedure Monitoring Vital Signs Temperature 99 F 10/27/18 12:00 Pulse Rate 109 H 10/27/18 12:00 Respiratory Rate 20 10/27/18 12:00 Blood Pressure 90/64 10/27/18 12:00 O2 Sat by Pulse Oximetry (%) 100 10/27/18 12:00 ED Treatment Course - LABORATORY CBC & Chemistry Diagram: 10/27/18 15:20 10/27/18 15:20 Medical Decision Making - Medical Decision Making 10/27/18 14:01 52 yo F with h/o HTN, IDDM, Hypothyroidism, Bipolar Disorder,COPD, Chronic Hypoxic Hypercapnic respiratory failure s/p trach, Paroxysmal A-fib, recent hospitalization ( 10/18-10/23/18) for sespis/bacteremia/UTI, who p/w SOB, and cough. HR 109, BP 90/64, temp 99, 100 % trach collar. Lungs with diffuse exp rhonci. Physical exam otherwise unremarkable. ACS/ID r/ o. R/o PNA. Low suspicion PE. No evidence fluid/volume overload. Low suspicion CHF. Possible URI, COPD, PNA. ED Course CBC,CMP, Cardiac, BNP, Blood Cx. EKG, CXR 1 L NS, Zofran, Tylenol 10/27/18 16:06 WBC: 12.1 K+: 2.9 Trop: Neg K-DUR 80 MeQ, Mg Resp to evaluate pt. trach collar 10/27/18 16:57 CXR: Unremarkable 10/27/18 19:06 Repeat CMP: pending Patient pending PO challenging,. Signed out to night team *DC/Admit/Observation/Transfer Diagnosis at time of Disposition: Shortness of breath at rest - Discharge Dispostion Condition at time of disposition: Stable - Referrals Referrals: Manolo Jaquez [Primary Care Provider] - - Patient Instructions Additional Instructions: Please return to the emergency department with any new or worsening symptoms or concerns. Please follow up with your primary care physician within 72 hours. Please follow up with your Estimator Project Manager within one week. - Post Discharge Activity - Attestations Physician Attestion: 10/27/18 13:43 I attest to the information provided in this note.
[2018-10-27] MEDS ORDERED: SODIUM CHLORIDE 1,000 ML IV STA (13:54)
[2018-10-27] MEDS ORDERED: ACETAMINOPHEN 1000 MG/100 ML VIAL (NON FORMULARY) IVPB ONE (13:54)
[2018-10-27] MEDS ORDERED: ONDANSETRON 4 MG/2 ML VIAL IVPB ONE ×2 (14:07→18:12)
[2018-10-27] MEDS ORDERED: ALBUTEROL SO4 2.5/IPRATROPIUM 0.5 INH SOL 3 ML VIAL.NEB. NEB ONE ×3 (14:09→22:32)
[2018-10-27] MEDS ORDERED: ACETAMINOPHEN INJECTION 100 ML IVPB ONE (14:51)
[2018-10-27] MEDS ORDERED: ONDANSETRON 4 MG/2 ML VIAL ONE (14:51)
[2018-10-27] MEDS ORDERED: morphine CARPU-JECT 4 MG/1 ML DISP.SYRIN IVPUSH ONE (15:20)
[2018-10-27 15:26] LABS: VENOUS PC02 40.7 mmHg (38-52); VENOUS PH 7.46 (7.32-7.42); VENOUS PO2 49.8 mmHg (28-48)
[2018-10-27] MEDS ORDERED: morphine CARPU-JECT 2 MG/1 ML DISP.SYRIN IM ONE (15:42)
[2018-10-27 15:46] LABS: ALK PHOS 195 U/L (45-117); ANION GAP 9 MMOL/L (8-16); BILIRUBIN,TOTAL 0.4 mg/dL (0.2-1); BLOOD UREA NITROGEN 3 mg/dL (7-18); CALCIUM 8.2 mg/dL (8.5-10.1); CHLORIDE 99 mmol/L (98-107); CO2 29 mmol/L (21-32); CREATININE 0.9 mg/dL (0.55-1.3); GLUCOSE,RANDOM 79 mg/dL (74-106); SGOT/AST 47 U/L (15-37); SGPT/ALT 20 U/L (13-61); SODIUM 137 mmol/L (136-145); TOT PROT 6.6 g/dl (6.4-8.2)
[2018-10-27 15:49] LABS: BASO % 0.8 % (0-2.0); HEMATOCRIT 30.5 % (32.4-45.2); LYMPH % 12.1 % (8-40); MCHC 29.7 g/dl (32.0-36.0); MEAN CELL VOLUME 80.7 fl (80-96); MEAN PLT VOLUME 8.7 fl (7.5-11.1); MONO % 5.5 % (3.8-10.2); NEUT % 76.6 % (42.8-82.8); PLATELET COUNT 419 K/MM3 (134-434); POTASSIUM 2.9 mmol/L (3.5-5.1); RBC 3.78 M/mm3 (3.60-5.2); WHITE BLOOD COUNT 12.1 K/mm3 (4.0-10.0)
[2018-10-27 15:51] LABS: HEMOGLOBIN 9.1 GM/dL (10.7-15.3)
[2018-10-27 15:52] LABS: N-TERMINAL BNP 113.6 pg/ml (5-125)
[2018-10-27] MEDS ORDERED: POTASSIUM CHLORIDE TABS 20 MEQ TABLET.ER (FP) PO ONE ×2 (15:52→15:54)
[2018-10-27] MEDS ORDERED: MAGNESIUM CL 64 MG TABLET.SA PO ONE (15:59)
[2018-10-27] MEDS ORDERED: POTASSIUM CHLORIDE ORAL LIQUID 20 MEQ/15 ML ONE (16:02)
--- NOTE | 2018-10-27 16:04 | PDOC ---
Attending Attestation - Resident Resident Name: Diego Turcios - ED Attending Attestation I have performed the following: I have examined & evaluated the patient, The case was reviewed & discussed with the resident, I agree w/resident's findings & plan, Exceptions are as noted - HPI HPI: 10/27/18 16:00 52 F with h/o HTN, IDDM, Hypothyroidism, Bipolar Disorder,COPD, Chronic Hypoxic Hypercapnic respiratory failure s/p trach, Paroxysmal A-fib, recent hospitalization (10/18-10/23/18) for sespis/bacteremia/UTI, who p/w SOB, cough, and bodyaches. States that since changing her trach 2 days ago, she has gotten progressively more SOB with cough productive of clear sputum. Pt denies CP. Denies F/C. Pt states that she feels like her COPD is acting up. Denies leg swelling. Pt also notes that she has chronic body pain in her extremities and back. She has been taking PO dilaudid with no relief. Pt is requesting morphine for pain control, as this has worked in the past. Pt denies any new pain. - Physicial Exam PE: 10/27/18 16:03 GENERAL: Awake, alert, and fully oriented, in no acute distress. HEAD: No signs of trauma EYES: PERRLA, EOMI, sclera anicteric, conjunctiva clear ENT: Auricles normal inspection, hearing grossly normal, nares patent, oropharynx clear without exudates. Moist mucosa NECK: +Trach in place, Nontender, no stepoffs, Normal ROM, supple, no lymphadenopathy, JVD, or masses LUNGS: + Mild bilateral rhonchi HEART: Regular rate and rhythm, normal S1 and S2, no murmurs, rubs or gallops ABDOMEN: Soft, nontender, normoactive bowel sounds. No guarding, no rebound. No masses EXTREMITIES: Normal range of motion, no edema. No clubbing or cyanosis. No cords, erythema, or tenderness NEUROLOGICAL: Cranial nerves II through XII intact. 5/5 strength and sensation in all extremities, Normal speech, normal gait, normal cerebellar function SKIN: Warm, Dry, normal turgor, no rashes or lesions noted. - Medical Decision Making 10/27/18 16:03 52 F with mild COPD exacerbation. Pt with stable vitals, mild rhonchi on exam with no increased work of breathing. Pt also complaining of chronic body pain and is requesting narcotic pain meds. - Labs, VBG - CXR - Nebs, steroids - Morphine IM 10/27/18 17:21 Labs notable for K 2.9 Will replete and recheck lytes CXR clear Pt seen by respiratory therapist, who confirmed the trach is secured appropriately. 10/27/18 19:21 Pt's K repleted Repeat CMP sent Pt signed out to oncoming attending, pending repeat CMP. If lytes normalized, pt stable for DC. If still hypoK, will admit for repletion.
[2018-10-27] MEDS ORDERED: MORPHINE SULFATE 2 MG/ML VIAL ONE (16:13)
[2018-10-27] MEDS ORDERED: predniSONE 20 MG TABLET (UD) PO ONE (17:21)
[2018-10-27] MEDS ORDERED: predniSONE 20 MG TABLET (UD) ONE (17:33)
[2018-10-27 17:38] LABS: ANISOCYTOSIS 2+
[2018-10-27 17:39] LABS: MACROCYTOSIS 2+; PLATELET ESTIMATE SLT INCREASE
[2018-10-27] MEDS ORDERED: ONDANSETRON *ODT* 4 MG TABLET ONE (18:18)
[2018-10-27] MEDS ORDERED: ONDANSETRON 4 MG TABLET PO ONE (18:45)
[2018-10-27 19:07] VITALS: TEMP 98.2
[2018-10-27] MEDS ORDERED: IBUPROFEN 400 MG TABLET (FP) PO ONE (19:09)
[2018-10-27] MEDS ORDERED: AZITHROMYCIN 500 MG TABLET PO ONE (19:19)
--- NOTE | 2018-10-27 19:26 | PDOC ---
*Physical Exam - Vital Signs Last Vital Signs Temp Pulse Resp BP Pulse Ox 98.2 F 114 H 20 111/86 96 10/27/18 19:06 10/27/18 19:06 10/27/18 19:06 10/27/18 19:06 10/27/18 19:06 ED Treatment Course - LABORATORY CBC & Chemistry Diagram: 10/27/18 15:20 10/27/18 19:06 - ADDITIONAL ORDERS Additional order review: Laboratory Results 10/27/18 10/27/18 10/27/18 15:20 15:20 14:25 VBG pH 7.46 H POC VBG pCO2 40.7 POC VBG pO2 49.8 H Mixed VBG HCO3 28.3 H Sodium 137 Potassium 2.9 L* Chloride 99 Carbon Dioxide 29 Anion Gap 9 BUN 3 L Creatinine 0.9 Creat Clearance w eGFR > 60 Random Glucose 79 Calcium 8.2 L Total Bilirubin 0.4 AST 47 H ALT 20 Alkaline Phosphatase 195 H Creatine Kinase 104 Troponin I < 0.02 B-Natriuretic Peptide 113.6 Total Protein 6.6 Albumin 2.0 L 10/27/18 15:20 RBC 3.78 MCV 80.7 MCHC 29.7 L RDW 26.0 H MPV 8.7 Neutrophils % 76.6 Lymphocytes % 12.1 Monocytes % 5.5 Eosinophils % 5.0 H Basophils % 0.8 - Medications Given in the ED: ED Medications Discontinued Medications Generic Name Dose Route Start Last Admin Trade Name Dannyq PRN Reason Stop Dose Admin Acetaminophen 1,000 mg 10/27/18 13:54 10/27/18 15:58 Ofirmev Injection - IVPB 10/27/18 13:55 Not Given ONCE ONE Albuterol/Ipratropium 1 amp 10/27/18 14:09 10/27/18 14:45 Duoneb - NEB 10/27/18 14:10 1 amp ONCE ONE Administration Sodium Chloride 1,000 mls @ 1,000 mls/hr 10/27/18 13:54 10/27/18 15:57 Normal Saline - IV 10/27/18 14:53 Not Given ASDIR STA Ibuprofen 400 mg 10/27/18 19:09 10/27/18 19:16 Motrin - PO 10/27/18 19:10 Not Given ONCE ONE Magnesium Chloride 64 mg 10/27/18 15:59 10/27/18 17:29 Slow-Mag - PO 10/27/18 16:00 64 mg ONCE ONE Administration Morphine Sulfate 4 mg 10/27/18 15:20 10/27/18 16:23 Morphine Injection - IVPUSH 10/27/18 15:21 Not Given ONCE ONE Morphine Sulfate 4 mg 10/27/18 15:42 10/27/18 16:22 Morphine Injection - IM 10/27/18 15:43 4 mg ONCE ONE Administration Ondansetron HCl 4 mg 10/27/18 14:07 10/27/18 15:58 Zofran Injection IVPB 10/27/18 14:08 Not Given ONCE ONE Ondansetron HCl 4 mg 10/27/18 18:12 10/27/18 18:50 Zofran Injection IVPB 10/27/18 18:13 Not Given ONCE ONE Ondansetron HCl 4 mg 10/27/18 18:45 10/27/18 18:25 Zofran - PO 10/27/18 18:46 4 mg ONCE ONE Administration Potassium Chloride 40 meq 10/27/18 15:52 10/27/18 16:22 K-Dur - PO 10/27/18 15:53 40 meq ONCE ONE Administration Potassium Chloride 40 meq 10/27/18 15:54 10/27/18 16:22 K-Dur - PO 10/27/18 15:55 40 meq ONCE ONE Administration Prednisone 40 mg 10/27/18 17:21 10/27/18 17:30 Deltasone - PO 10/27/18 17:22 40 mg ONCE ONE Administration Medical Decision Making - Medical Decision Making 10/27/18 19:25 Pt signed out to me by Dr. Turcios. The patient is a 52F with MMP who presents to the ER with difficulty breathing, found to have hypokalemia. IV access unable to be established. PO k-dur 80 given and pt vomited K-dur. Pending repeat CMP and likely admission if K not corrected. Will need PICC line access. 10/27/18 20:28 K corrected. Will d/c with PCP f/u and abx. *DC/Admit/Observation/Transfer Diagnosis at time of Disposition: Shortness of breath at rest - Discharge Dispostion Disposition: HOME Condition at time of disposition: Stable Decision to Admit order: No - Prescriptions Prescriptions: Acetaminophen [Tylenol] 650 mg PO TID #21 tablet Azithromycin 250 mg PO ONCE #4 tablet - Referrals Referrals: Manolo Jaquez [Primary Care Provider] - - Patient Instructions Additional Instructions: Please return to the emergency department with any new or worsening symptoms or concerns. Please follow up with your primary care physician within 72 hours. Please follow up with your Alcohol Still Operator within one week. - Post Discharge Activity
[2018-10-27 20:00] LABS: ALK PHOS 179 U/L (45-117); ANION GAP 8 MMOL/L (8-16); BILIRUBIN,TOTAL 0.2 mg/dL (0.2-1); BLOOD UREA NITROGEN 4 mg/dL (7-18); CALCIUM 7.9 mg/dL (8.5-10.1); CHLORIDE 100 mmol/L (98-107); CO2 28 mmol/L (21-32); CREATININE 1.1 mg/dL (0.55-1.3); GLUCOSE,RANDOM 131 mg/dL (74-106); MAGNESIUM 1.5 mg/dL (1.8-2.4); POTASSIUM 4.1 mmol/L (3.5-5.1); SGOT/AST 37 U/L (15-37); SGPT/ALT 18 U/L (13-61); SODIUM 136 mmol/L (136-145); TOT PROT 6.1 g/dl (6.4-8.2)
[2018-10-27] MEDS ORDERED: ACETAMINOPHEN 325 MG TABLET (FP) PO ONE (20:27)
[2018-10-27] MEDS ORDERED: AZITHROMYCIN 500 MG TABLET ONE (20:31)
[2018-10-27] MEDS ORDERED: ACETAMINOPHEN 325 MG TABLET (FP) ONE (20:31)
[2018-10-27 20:49] VITALS: BP 105/72; PULSE 110
[2018-10-28] MEDS ORDERED: MAGNESIUM CL 64 MG TABLET.SA PO ONE (10:00)
--- NOTE | 2018-10-28 10:29 | EKG ---
Test Reason : Blood Pressure : / mmHG Vent. Rate : 106 BPM Atrial Rate : 106 BPM P-R Int : 146 ms QRS Dur : 088 ms QT Int : 348 ms P-R-T Axes : 019 008 007 degrees QTc Int : 462 ms POOR DATA QUALITY, INTERPRETATION MAY BE ADVERSELY AFFECTED SINUS TACHYCARDIA MINIMAL VOLTAGE CRITERIA FOR LVH, MAY BE NORMAL VARIANT INFERIOR INFARCT , AGE UNDETERMINED CANNOT RULE OUT ANTERIOR INFARCT , AGE UNDETERMINED ABNORMAL ECG WHEN COMPARED WITH ECG OF 18-OCT-2018 15:40, INFERIOR INFARCT IS NOW PRESENT INVERTED T WAVES HAVE REPLACED NONSPECIFIC T WAVE ABNORMALITY IN INFERIOR LEADS Confirmed by INCK CODY MD ([id number]) on 10/28/2018 10:29:14 AM Referred By: Confirmed By:NICK CODY MD
== END 2018-10-27 23:29 | disposition home or self-care (01) ==
LOC: JER 11:43
DX: R06.02 Shortness of breath (principal); E03.9 Hypothyroidism, unspecified; I48.91 Unspecified atrial fibrillation; F31.9 Bipolar disorder, unspecified; R06.89 Other abnormalities of breathing; E11.9 Type 2 diabetes mellitus without complications; E78.00 Pure hypercholesterolemia, unspecified; F41.9 Anxiety disorder, unspecified
CPT/HCPCS: 36415; 71045-TC-FY; 80053; 82550; 82803; 83735; 83880; 84484; 85025; 87040; 87186; 93005; 93010; 99281-25

== ENCOUNTER 2018-10-29 14:53 | Inpatient (IN) | payer OTHER ==
--- NOTE | 2018-10-29 15:16 | PDOC ---
History of Present Illness - General Chief Complaint: Weakness Stated Complaint: WEAKNESS Time Seen by Provider: 10/29/18 15:16 - History of Present Illness Initial Comments: 52 yo F with h/o HTN, IDDM, Hypothyroidism, Bipolar Disorder, COPD, Chronic Hypoxic Hypercapnic respiratory failure s/p trach, Paroxysmal A-fib, and recent hospitalization ( 10/18-10/23/18) for sespis/ bacteremia/UTI who presents with increased SOB and call back for positive blood cultures suspicious for MRSA in two bottles. Patient states that her main compliant is continued SOB. She also has some nausea and diarrhea over the pat few days. Denies fevers, chills, abdominal pain, constipation, chest pain, or other symptoms. 10/29/18 15:34 Timing/Duration: unsure Past History - Past Medical History Allergies/Adverse Reactions: Allergies Allergy/AdvReac Type Severity Reaction Status Date / Time oxycodone [Oxycodone] Allergy Severe Nausea Verified 10/18/18 14:35 oxycodone HCl [From Percocet] Allergy Severe Nausea Verified 10/18/18 14:35 aspirin Allergy Mild Verified 10/18/18 14:35 blueberry [Blueberry] Allergy Mild Swelling Verified 10/18/18 14:35 fentanyl Allergy Mild Vomiting Verified 10/18/18 14:35 ibuprofen Allergy Swelling Verified 10/18/18 14:35 aspartame AdvReac Mild Itching Verified 10/18/18 14:35 Home Medications: Ambulatory Orders Albuterol Sulfate Inhaler - [Ventolin HFA Inhaler -] 2 puff IH Q4H PRN #0 inhaler 11/29/16 Acetaminophen [Tylenol .Regular Strength -] 650 mg PO Q6H PRN #0 tablet Apixaban [Eliquis -] 5 mg PO BID tablet 04/29/17 Baclofen 20 mg PO TID 07/09/18 Levocetirizine Dihydrochloride 5 mg PO HS 07/09/18 Levothyroxine [Synthroid -] 50 mcg PO DAILY 07/09/18 Rosuvastatin Calcium [Crestor] 10 mg PO DAILY 07/09/18 Venlafaxine HCl ER [Effexor Xr -] 75 mg PO DAILY 07/09/18 Famotidine 40 mg PO BID 08/07/18 Hydromorphone HCl 4 mg PO Q4H 08/07/18 Mirabegron [Myrbetriq] 50 mg PO DAILY 08/07/18 Montelukast Na [Singulair -] 10 mg PO HS 08/07/18 Doxepin HCl [Sinequan -] 25 mg PO DAILY #30 capsule 08/15/18 Linaclotide [Linzess] 145 mcg PO DAILY #30 cap 08/15/18 Pantoprazole Sodium [Protonix -] 40 mg PO DAILY #30 tablet.ec 08/15/18 Topiramate [Topamax -] 100 mg PO DAILY #30 tablet 08/15/18 Vortioxetine Hydrobromide [Trintellix] 20 mg PO DAILY #30 tablet 08/15/18 Gabapentin [Neurontin -] 500 mg PO Q8H #21 capsule 08/30/18 Insulin (Novolog) [Novolog -] 0 units SQ AC 08/30/18 Ondansetron [Zofran -] 8 mg PO TID 08/30/18 Zolpidem Tartrate 10 mg PO HS MDD 1 09/04/18 Gabapentin [Neurontin -] 500 mg PO TID #90 capsule 09/08/18 Ondansetron [Zofran *Odt*] 8 mg PO TID #90 tab.rapdis 09/09/18 Fluconazole [Diflucan -] 200 mg PO DAILY #7 tablet 09/18/18 Alprazolam [Xanax] 0.25 mg PO Q8H PRN tablet MDD 3 10/23/18 Diltiazem Cd [Cardizem Cd -] 120 mg PO DAILY #30 cap.cd.24h 10/23/18 Gabapentin [Neurontin -] 500 mg PO TID #60 capsule 10/23/18 Acetaminophen [Tylenol] 650 mg PO TID #21 tablet 10/27/18 Azithromycin 250 mg PO ONCE #4 tablet 10/27/18 Anemia: Yes Asthma: Yes (COPD, trach #8) Cancer: Yes (UTERINE) Cardiac Disorders: Yes (A-fib) CVA: No COPD: Yes CHF: No Dementia: No Diabetes: Yes GI Disorders: Yes (colitis, SB resection, GERD) Disorders: Yes (KIDNEY STENTS) HTN: Yes Hypercholesterolemia: Yes Liver Disease: No Psychiatric Problems: Yes (ANXIETY) Seizures: Yes (5 yrs ago) Thyroid Disease: No - Surgical History Abdominal Surgery: Yes (BOWEL RESECTION) Appendectomy: Yes (removed 1998) Cardiac Surgery: No Cholecystectomy: No Lung Surgery: No Neurologic Surgery: No Orthopedic Surgery: Yes (Back Sx T7,6) - Immunization History Td Vaccination: Yes TDAP Vaccination: Yes Immunization Up to Date: Yes - Suicide/Smoking/Psychosocial Hx Smoking Status: No Smoking History: Former smoker Have you smoked in the past 12 months: No Number of Cigarettes Smoked Daily: 3 If you are a former smoker, when did you quit?: 1997 'Breaking Loose' booklet given: 03/12/15 Hx Alcohol Use: No Drug/Substance Use Hx: No Substance Use Type: None Hx Substance Use Treatment: No Review of Systems - Review of Systems Constitutional: No: Chills, Diaphoresis, Fever, Loss of Appetite HEENTM: No: Blurred Vision, Tearing Respiratory: Yes: Cough, Shortness of Breath, SOB with Exertion. No: Orthopnea , Productive cough Cardiac (ROS): No: Chest Pain, Irregular Heart Rate, Palpitations, Syncope ABD/GI: Yes: Diarrhea, Nausea. No: Vomiting, Indigestion : No: Discharge, Frequency Integumentary: Yes: Erythema, Lesions, Rash. No: Pallor Neurological: No: Headache, Numbness, Paresthesia Psychiatric: Yes: Anxiety. No: Depression Endocrine: No: Flushing Hematologic/Lymphatic: No: Anemia, Blood Clots *Physical Exam - Physical Exam General Appearance: Yes: Nourished, Appropriately Dressed. No: Apparent Distress HEENT: positive: EOMI, AYESHA, Normal ENT Inspection (trach in place, no infection around tracheostomy site) Neck: positive: Trachea midline, Rigid, Supple. negative: Tender, Normal Thyroid Respiratory/Chest: positive: Respiratory Distress. negative: Chest Tender, Lungs Clear (coarse bilateral breath sounds), Normal Breath Sounds Cardiovascular: positive: Regular Rhythm, Regular Rate. negative: Murmur Gastrointestinal/Abdominal: positive: Normal Bowel Sounds, Flat, Soft. negative : Tender Lymphatic: negative: Adenopathy, Tenderness Musculoskeletal: positive: Decreased Range of Motion. negative: Normal Inspection Extremity: positive: Normal Capillary Refill. negative: Normal Inspection, Normal Range of Motion, Tender Integumentary: positive: Normal Color, Warm, Erythema, Rash, Other (Patient with diffuse rash / stage I skn breakdown across perieneum and anmao-genital region with small satellites) Neurologic: positive: Fully Oriented, Alert, Normal Response. negative: Normal Mood/Affect (easily upset), Motor Strength 5/5, Numbness ED Treatment Course - LABORATORY CBC & Chemistry Diagram: 10/29/18 17:00 10/29/18 18:50 Medical Decision Making - Medical Decision Making 52 year old with trach in place presenting with SOB in the setting of MRSA + BCs and UTI here. Mildly elevated WBC chemistry pending. Given vanc, zosyn, morphine, Tylenol, and nystatin powder for her likely fungal infection. Patient microblogged to admitting service. 10/29/18 19:[address] Booker who will manage the Abx needs of this patient. but agrees with vancomycin. Patient also still complaining of pain. SHe takes hydromorphone 4 4 times per day at home so she was given ne dose of hydromorphone. 10/29/18 21:21 *DC/Admit/Observation/Transfer Diagnosis at time of Disposition: MRSA bacteremia - Discharge Dispostion Condition at time of disposition: Stable Decision to Admit order: Yes - Referrals - Patient Instructions - Post Discharge Activity
--- NOTE | 2018-10-29 16:19 | PDOC ---
Attending Attestation - Resident Resident Name: Calderon Daijasonhailey - ED Attending Attestation I have performed the following: I have examined & evaluated the patient, The case was reviewed & discussed with the resident, I agree w/resident's findings & plan, Exceptions are as noted - HPI HPI: 10/29/18 16:15 52 yo HTN, IDDM, Hypothyroidism, Bipolar Disorder, COPD, trach, Paroxysmal A- fib, sacral wounds recently admitted for sepsis ho uti here with c/o positive culture. pt has had two bottle positive for mrsa. pt denies fever or chills. has had nausea and increased sleepiness. no cp no sob. no change to cough. - Physicial Exam PE: 10/29/18 16:17 awake alert trach in place. cdi. lungs mild expiratory wheezing bilaterally heart reg tachycardia, abd soft nt nd. ext wwp. stage one wound left lateral panus line, mild erythema. ext wwp. nuero alert x 3 - Medical Decision Making 10/29/18 16:18 differential: sepsis from uti, sacral wound, plan labs will treat with abx, cxr ua cultures. admit.
[2018-10-29] MEDS ORDERED: VANCOMYCIN 1 GRAM (PRE-DOCKED) 1,000 MG/250 ML BAG IVPB ONE ×3 (16:38→17:34)
[2018-10-29] MEDS ORDERED: ONDANSETRON 4 MG/2 ML VIAL IVPUSH ONE (16:42)
[2018-10-29] MEDS ORDERED: ACETAMINOPHEN 1000 MG/100 ML VIAL (NON FORMULARY) IVPB ONE (16:43)
[2018-10-29] MEDS ORDERED: NYSTATIN POWDER 100,000 UNITS/GM - 15 GM TOPICAL POWDER TP ONE (16:51)
[2018-10-29] MEDS ORDERED: ONDANSETRON 4 MG/2 ML VIAL ONE (17:33)
[2018-10-29] MEDS ORDERED: ACETAMINOPHEN INJECTION 100 ML IVPB ONE (17:33)
[2018-10-29 17:37] LABS: BASO % 0.8 % (0-2.0); EOS % 3.1 % (0-4.5); HEMATOCRIT 29.8 % (32.4-45.2); HEMOGLOBIN 9.7 GM/dL (10.7-15.3); LYMPH % 14.8 % (8-40); MCH 26.1 pg (25.7-33.7); MCHC 32.4 g/dl (32.0-36.0); MEAN CELL VOLUME 80.5 fl (80-96); MEAN PLT VOLUME 8.7 fl (7.5-11.1); MONO % 8.9 % (3.8-10.2); NEUT % 72.4 % (42.8-82.8); PLATELET COUNT 569 K/MM3 (134-434); WHITE BLOOD COUNT 11.4 K/mm3 (4.0-10.0)
[2018-10-29 17:39] LABS: URINE APPEARANCE SLCLOUDY; URINE BILIRUBIN NEGATIVE (<2.0 mg/dL); URINE COLOR LTYELLOW; URINE GLUCOSE (UA) NEGATIVE (NEGATIVE); URINE KETONE NEGATIVE (NEGATIVE); URINE LEUK ESTERASE 3+ (NEGATIVE); URINE NITRITE NEGATIVE (NEGATIVE); URINE PROTEIN NEGATIVE (NEGATIVE); URINE UROBILINOGEN NEGATIVE mg/dL (0.2-1.0)
[2018-10-29 17:52] LABS: EPI CELLS RARE /HPF (FEW); YEAST RARE
[2018-10-29] MEDS ORDERED: morphine CARPU-JECT 4 MG/1 ML DISP.SYRIN IVPUSH ONE (18:53)
[2018-10-29] MEDS ORDERED: morphine SULFATE 4 MG/ML VIAL ONE (19:15)
[2018-10-29] MEDS ORDERED: PIPERACILLIN/TAZOB 3.375 GM 3.375 GM in DEXTROSE 5%-WATER - 50 ML IVPB ONE (19:40)
[2018-10-29] MEDS ORDERED: SODIUM CHLORIDE 0.9% 500 ML INFUS.BAG IV ONE (19:46)
--- NOTE | 2018-10-29 20:02 | PDOC ---
*Physical Exam - Vital Signs Last Vital Signs Temp Pulse Resp BP Pulse Ox 98.8 F 114 H 18 109/79 100 10/29/18 17:00 10/29/18 15:31 10/29/18 15:31 10/29/18 15:31 10/29/18 17:00 ED Treatment Course - LABORATORY CBC & Chemistry Diagram: 10/30/18 05:15 10/30/18 05:15 - ADDITIONAL ORDERS Additional order review: Laboratory Results 10/29/18 10/29/18 17:00 17:00 Sodium Cancelled Potassium Cancelled Chloride Cancelled Carbon Dioxide Cancelled Anion Gap Cancelled BUN Cancelled Creatinine Cancelled Creat Clearance w eGFR Cancelled Random Glucose Cancelled Calcium Cancelled Total Bilirubin Cancelled AST Cancelled ALT Cancelled Alkaline Phosphatase Cancelled Total Protein Cancelled Albumin Cancelled Urine Color Ltyellow Urine Appearance Slcloudy Urine pH 6.0 Ur Specific [place] 1.004 L Urine Protein Negative Urine Glucose (UA) Negative Urine Ketones Negative Urine Blood Negative Urine Nitrite Negative Urine Bilirubin Negative Urine Urobilinogen Negative Ur Leukocyte Esterase 3+ H Urine WBC (Auto) 45 Urine RBC (Auto) None Ur Epithelial Cells Rare Urine Yeast Rare 10/29/18 17:00 RBC 3.70 MCV 80.5 MCHC 32.4 RDW 26.0 H MPV 8.7 Neutrophils % 72.4 Lymphocytes % 14.8 D Monocytes % 8.9 Eosinophils % 3.1 Basophils % 0.8 - Medications Given in the ED: ED Medications Discontinued Medications Generic Name Dose Route Start Last Admin Trade Name Divya PRN Reason Stop Dose Admin Acetaminophen 1,000 mg 10/29/18 16:43 10/29/18 18:00 Ofirmev Injection - IVPB 10/29/18 16:44 Not Given ONCE ONE Morphine Sulfate 4 mg 10/29/18 18:53 10/29/18 19:54 Morphine Injection - IVPUSH 10/29/18 18:54 4 mg ONCE ONE Administration Ondansetron HCl 4 mg 10/29/18 16:42 10/29/18 17:40 Zofran Injection IVPUSH 10/29/18 16:43 4 mg ONCE ONE Administration Vancomycin HCl 1,000 mg 10/29/18 16:38 10/29/18 17:59 Vancomycin (Pre-Docked) IVPB 10/29/18 16:39 1,000 mg ONCE ONE Administration Protocol Medical Decision Making - Medical Decision Making 10/29/18 20:01 I received pt on signout. She came tachycardic to the ER 5 hrs ago and remains tachycardic. I wrote for a 500ml bolus of saline. Pt with UTI; as well as aspiration pneumonia/ tracheal infection from her trach collar; she will be admitted *DC/Admit/Observation/Transfer Diagnosis at time of Disposition: MRSA bacteremia - Discharge Dispostion Condition at time of disposition: Stable - Referrals - Patient Instructions - Post Discharge Activity
[2018-10-29 20:03] LABS: ALBUMIN 2.3 g/dl (3.4-5.0); ALK PHOS 191 U/L (45-117); ANION GAP 11 MMOL/L (8-16); BILIRUBIN,TOTAL 0.2 mg/dL (0.2-1); BLOOD UREA NITROGEN 5 mg/dL (7-18); CALCIUM 7.8 mg/dL (8.5-10.1); CHLORIDE 102 mmol/L (98-107); CO2 27 mmol/L (21-32); CREATININE 1.1 mg/dL (0.55-1.3); GLUCOSE,RANDOM 106 mg/dL (74-106); POTASSIUM 3.2 mmol/L (3.5-5.1); SGOT/AST 38 U/L (15-37); SGPT/ALT 21 U/L (13-61); SODIUM 140 mmol/L (136-145); TOT PROT 6.7 g/dl (6.4-8.2)
[2018-10-29] MEDS ORDERED: KCL 10 MEQ IVPB 10 MEQ/100 ML INFUS.BAG IVPB ONE (20:26)
--- NOTE | 2018-10-29 20:32 | HP ---
Admitting History and Physical - Primary Care Physician PCP: Manolo Jaquez - Admission Chief Complaint: +Blood Cultures, SOB History of Present Illness: This is a 52 y/o woman with a significant medical history of COPD, Chronic Hypoxic Hypercapnic Respiratory Failure s/p Trach, Paroxysmal Afiib, HTN, IDDM, Hypothyroidism. Recent hospitalization 10/18-10/23/18 Sepsis/Bacteremia/UTI. Who presents to the ED for call back +blood cultures for MRSA, increased SOB. History Source: Patient, Medical Record Limitations to Obtaining History: Poor Historian - Past Medical History Cardiovascular: Yes: AFIB (Paroxysmal), HTN, Hyperlipdemia Pulmonary: Yes: Asthma, COPD, O2 Dependent, Previously Intubated Gastrointestinal: Yes: GI Bleed Renal/: Yes: Cancer (Uterine), Other (STENTS/[place] in the past) Heme/Onc: Yes: Other (BCA, Uterine Ca) Infectious Disease: Yes: C-Diff (june 2014), Other (Osteomyelitis of thoracic spine) Psych: Yes: Anxiety, Bipolar, Depression Musculoskeletal: Yes: Chronic low back pain, Other (multiple vertebral fractures ) Endocrine: Yes: Diabetes Mellitus, Hypothyroidism - Past Surgical History Past Surgical History: Yes: Appendectomy, Colectomy (By description, right colon resection with anastamosis noted on colonoscopy 2013), Hysterectomy (ADE/ BSO), Stent - Smoking History Smoking history: Former smoker Have you smoked in the past 12 months: No Aproximately how many cigarettes per day: 3 If you are a former smoker, when did you quit?: 1997 - Alcohol/Substance Use Hx Alcohol Use: No - Social History 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) History of Recent Travel: No Home Medications - Allergies Allergies/Adverse Reactions: Allergies Allergy/AdvReac Type Severity Reaction Status Date / Time oxycodone [Oxycodone] Allergy Severe Nausea Verified 10/18/18 14:35 oxycodone HCl [From Percocet] Allergy Severe Nausea Verified 10/18/18 14:35 aspirin Allergy Mild Verified 10/18/18 14:35 blueberry [Blueberry] Allergy Mild Swelling Verified 10/18/18 14:35 fentanyl Allergy Mild Vomiting Verified 10/18/18 14:35 ibuprofen Allergy Swelling Verified 10/18/18 14:35 aspartame AdvReac Mild Itching Verified 10/18/18 14:35 - Home Medications Home Medications: Ambulatory Orders Albuterol Sulfate Inhaler - [Ventolin HFA Inhaler -] 2 puff IH Q4H PRN #0 inhaler 11/29/16 Acetaminophen [Tylenol .Regular Strength -] 650 mg PO Q6H PRN #0 tablet Apixaban [Eliquis -] 5 mg PO BID tablet 04/29/17 Baclofen 20 mg PO TID 07/09/18 Levocetirizine Dihydrochloride 5 mg PO HS 07/09/18 Levothyroxine [Synthroid -] 50 mcg PO DAILY 07/09/18 Rosuvastatin Calcium [Crestor] 10 mg PO DAILY 07/09/18 Venlafaxine HCl ER [Effexor Xr -] 75 mg PO DAILY 07/09/18 Famotidine 40 mg PO BID 08/07/18 Hydromorphone HCl 4 mg PO Q4H 08/07/18 Mirabegron [Myrbetriq] 50 mg PO DAILY 08/07/18 Montelukast Na [Singulair -] 10 mg PO HS 08/07/18 Doxepin HCl [Sinequan -] 25 mg PO DAILY #30 capsule 08/15/18 Linaclotide [Linzess] 145 mcg PO DAILY #30 cap 08/15/18 Pantoprazole Sodium [Protonix -] 40 mg PO DAILY #30 tablet.ec 08/15/18 Topiramate [Topamax -] 100 mg PO DAILY #30 tablet 08/15/18 Vortioxetine Hydrobromide [Trintellix] 20 mg PO DAILY #30 tablet 08/15/18 Gabapentin [Neurontin -] 500 mg PO Q8H #21 capsule 08/30/18 Insulin (Novolog) [Novolog -] 0 units SQ AC 08/30/18 Ondansetron [Zofran -] 8 mg PO TID 08/30/18 Zolpidem Tartrate 10 mg PO HS MDD 1 09/04/18 Gabapentin [Neurontin -] 500 mg PO TID #90 capsule 09/08/18 Ondansetron [Zofran *Odt*] 8 mg PO TID #90 tab.rapdis 09/09/18 Fluconazole [Diflucan -] 200 mg PO DAILY #7 tablet 09/18/18 Alprazolam [Xanax] 0.25 mg PO Q8H PRN tablet MDD 3 10/23/18 Diltiazem Cd [Cardizem Cd -] 120 mg PO DAILY #30 cap.cd.24h 10/23/18 Gabapentin [Neurontin -] 500 mg PO TID #60 capsule 10/23/18 Acetaminophen [Tylenol] 650 mg PO TID #21 tablet 10/27/18 Azithromycin 250 mg PO ONCE #4 tablet 10/27/18 Family Disease History - Family Disease History Family Disease History: Diabetes: Mother (Alive: heart surgery), Heart Disease: Mother, [place]: Father (: leukemia), Other: Brother (2,Healthy), Sister (1, Healthy) Review of Systems - Review of Systems Constitutional: reports: No Symptoms Eyes: reports: No Symptoms HENT: reports: No Symptoms Neck: reports: No Symptoms Cardiovascular: reports: Shortness of Breath Respiratory: reports: SOB Gastrointestinal: reports: No Symptoms Genitourinary: reports: Dysuria Breasts: reports: No Symptoms Reported Musculoskeletal: reports: Back Pain Integumentary: reports: Rash Neurological: reports: No Symptoms Endocrine: reports: No Symptoms Hematology/Lymphatic: reports: No Symptoms Psychiatric: reports: No Symptoms Physical Examination Vital Signs: Vital Signs Temperature 98.8 F 10/29/18 17:00 Pulse Rate 114 H 10/29/18 15:31 Respiratory Rate 18 10/29/18 15:31 Blood Pressure 109/79 10/29/18 15:31 O2 Sat by Pulse Oximetry (%) 100 10/29/18 17:00 Constitutional: Yes: Well Nourished, No Distress, Calm Eyes: Yes: WNL, Conjunctiva Clear, EOM Intact, PERRL HENT: Yes: WNL, Atraumatic, Normocephalic Neck: Yes: Supple, Other (trach with collar O2) Cardiovascular: Yes: Regular Rate and Rhythm, S1, S2 Respiratory: Yes: Diminished, Rhonchi, Other (trach collar) Gastrointestinal: Yes: Normal Bowel Sounds, Soft, Abdomen, Obese Renal/: Yes: WNL Breast(s): Yes: WNL Musculoskeletal: Yes: WNL Extremities: Yes: WNL Edema: No Peripheral Pulses WNL: Yes Neurological: Yes: WNL, Alert, Oriented, Cran Nerves II-XII Intact ...Motor Strength: WNL Psychiatric: Yes: WNL, Alert, Oriented Labs: CBC, BMP 10/29/18 17:00 10/29/18 18:50 Intake & Output 10/27/18 10/28/18 10/29/18 10/30/18 23:59 23:59 23:59 23:59 Weight 61.235 kg Laboratory Results - last 24 hr 10/29/18 10/29/18 10/29/18 17:00 17:00 17:00 WBC 11.4 H RBC 3.70 Hgb 9.7 L Hct 29.8 L MCV 80.5 MCH 26.1 MCHC 32.4 RDW 26.0 H Plt Count 569 H D MPV 8.7 Absolute Neuts (auto) 8.3 H Neutrophils % 72.4 Lymphocytes % 14.8 D Monocytes % 8.9 Eosinophils % 3.1 Basophils % 0.8 Nucleated RBC % 0 Sodium Cancelled Potassium Cancelled Chloride Cancelled Carbon Dioxide Cancelled Anion Gap Cancelled BUN Cancelled Creatinine Cancelled Creat Clearance w eGFR Cancelled Random Glucose Cancelled Calcium Cancelled Total Bilirubin Cancelled AST Cancelled ALT Cancelled Alkaline Phosphatase Cancelled Creatine Kinase Troponin I Total Protein Cancelled Albumin Cancelled Urine Color Ltyellow Urine Appearance Slcloudy Urine pH 6.0 Ur Specific [place] 1.004 L Urine Protein Negative Urine Glucose (UA) Negative Urine Ketones Negative Urine Blood Negative Urine Nitrite Negative Urine Bilirubin Negative Urine Urobilinogen Negative Ur Leukocyte Esterase 3+ H Urine WBC (Auto) 45 Urine RBC (Auto) None Ur Epithelial Cells Rare Urine Yeast Rare 10/29/18 18:50 WBC RBC Hgb Hct MCV MCH MCHC RDW Plt Count MPV Absolute Neuts (auto) Neutrophils % Lymphocytes % Monocytes % Eosinophils % Basophils % Nucleated RBC % Sodium 140 Potassium 3.2 L Chloride 102 Carbon Dioxide 27 Anion Gap 11 BUN 5 L Creatinine 1.1 Creat Clearance w eGFR 52.58 Random Glucose 106 Calcium 7.8 L Total Bilirubin 0.2 AST 38 H ALT 21 Alkaline Phosphatase 191 H Creatine Kinase 49 Troponin I < 0.02 Total Protein 6.7 Albumin 2.3 L Urine Color Urine Appearance Urine pH Ur Specific [place] Urine Protein Urine Glucose (UA) Urine Ketones Urine Blood Urine Nitrite Urine Bilirubin Urine Urobilinogen Ur Leukocyte Esterase Urine WBC (Auto) Urine RBC (Auto) Ur Epithelial Cells Urine Yeast Current Medications Generic Name Dose Route Start Last Admin Trade Name Freq PRN Reason Stop Dose Admin Acetaminophen 650 mg 10/29/18 23:35 Tylenol - PO Q6H PRN FEVER Albuterol Sulfate 2 puff 10/29/18 23:35 Ventolin Hfa Inhaler - IH Q4H PRN SHORT OF BREATH/WHEEZING Alprazolam 0.25 mg 10/29/18 23:35 10/30/18 00:21 Xanax - PO 0.25 mg Q8H PRN Administration ANXIETY Apixaban 5 mg 10/29/18 23:45 10/30/18 00:13 Eliquis - PO 5 mg BID [facility] Administration Baclofen 20 mg 10/29/18 23:45 10/30/18 05:59 Lioresal - PO 20 mg TID [facility] Administration Diltiazem HCl 120 mg 10/30/18 10:00 Cardizem Cd - PO DAILY [facility] Doxepin HCl 25 mg 10/30/18 10:00 Sinequan - PO DAILY [facility] Gabapentin 500 mg 10/30/18 00:23 Neurontin - PO TID [facility] Hydromorphone HCl 4 mg 10/30/18 05:04 Dilaudid - PO Q4H PRN PAIN LEVEL 6-10 Vancomycin HCl 1,000 mg in 250 mls @ 166.667 mls/hr 10/30/18 06:00 10/30/18 05:59 Vancomycin (Pre-Docked) IVPB 166.667 mls/hr BID@0600,1800 [facility] Administration Protocol Piperacillin Sod/Tazobactam 50 mls @ 100 mls/hr 10/30/18 18:00 Sod 3.375 gm/ Dextrose IVPB Q8H-IV [facility] Protocol Levothyroxine Sodium 50 mcg 10/30/18 07:00 Synthroid - PO DAILY@0700 [facility] Montelukast Sodium 10 mg 10/30/18 22:00 Singulair - PO HS [facility] Nystatin 1 applic 10/30/18 10:00 Nystop Powder - TP DAILY [facility] Ranitidine HCl 300 mg 10/30/18 10:00 Zantac - PO HS [facility] Rosuvastatin Calcium 10 mg 10/30/18 22:00 Crestor - PO HS [facility] Topiramate 100 mg 10/30/18 10:00 Topamax - PO DAILY [facility] Venlafaxine HCl 75 mg 10/30/18 10:00 Effexor Xr - PO DAILY [facility] Zolpidem Tartrate 10 mg 10/30/18 22:00 Ambien - PO HS [facility] Imaging - Results Chest X-ray: Report Reviewed, Image Reviewed Problem List - Problems (1) Bacteremia due to methicillin resistant Staphylococcus aureus Code(s): R78.81 - BACTEREMIA (2) Acute and chronic respiratory failure with hypoxia Code(s): J96.21 - ACUTE AND CHRONIC RESPIRATORY FAILURE WITH HYPOXIA (3) Acute hypercapnic respiratory failure Code(s): J96.02 - ACUTE RESPIRATORY FAILURE WITH HYPERCAPNIA (4) Anemia Code(s): D64.9 - ANEMIA, UNSPECIFIED (5) Back pain Code(s): M54.9 - DORSALGIA, UNSPECIFIED (6) Bipolar 1 disorder Code(s): F31.9 - BIPOLAR DISORDER, UNSPECIFIED (7) Princess infection of genital region Code(s): B37.49 - OTHER UROGENITAL CANDIDIASIS (8) Constipation Code(s): K59.00 - CONSTIPATION, UNSPECIFIED (9) Diabetes Code(s): E11.9 - TYPE 2 DIABETES MELLITUS WITHOUT COMPLICATIONS (10) History of ESBL Klebsiella pneumoniae infection Code(s): Z86.19 - PERSONAL HISTORY OF OTHER INFECTIOUS AND PARASITIC DISEASES (11) Hypothyroid Code(s): E03.9 - HYPOTHYROIDISM, UNSPECIFIED Qualifiers: Hypothyroidism type: unspecified Qualified Code(s): E03.9 - Hypothyroidism , unspecified (12) Insomnia disorder Code(s): G47.00 - INSOMNIA, UNSPECIFIED (13) Migraine headache Code(s): G43.909 - MIGRAINE, UNSP, NOT INTRACTABLE, WITHOUT STATUS MIGRAINOSUS (14) Tracheostomy in place Code(s): Z93.0 - TRACHEOSTOMY STATUS (15) Afib Code(s): I48.91 - UNSPECIFIED ATRIAL FIBRILLATION (16) Anxiety Code(s): F41.9 - ANXIETY DISORDER, UNSPECIFIED (17) Asthma Code(s): J45.909 - UNSPECIFIED ASTHMA, UNCOMPLICATED (18) COPD (chronic obstructive pulmonary disease) Code(s): J44.9 - CHRONIC OBSTRUCTIVE PULMONARY DISEASE, UNSPECIFIED Qualifiers: COPD type: unspecified COPD Qualified Code(s): J44.9 - Chronic obstructive pulmonary disease, unspecified (19) Chronic back pain Code(s): M54.9 - DORSALGIA, UNSPECIFIED; G89.29 - OTHER CHRONIC PAIN (20) Depression with anxiety Code(s): F41.8 - OTHER SPECIFIED ANXIETY DISORDERS (21) Diabetes mellitus, insulin dependent (IDDM), uncontrolled Code(s): E10.65 - TYPE 1 DIABETES MELLITUS WITH HYPERGLYCEMIA (22) Drug abuse and dependence Code(s): F19.20 - OTHER PSYCHOACTIVE SUBSTANCE DEPENDENCE, UNCOMPLICATED (23) GERD (gastroesophageal reflux disease) Code(s): K21.9 - GASTRO-ESOPHAGEAL REFLUX DISEASE WITHOUT ESOPHAGITIS (24) HTN (hypertension) Code(s): I10 - ESSENTIAL (PRIMARY) HYPERTENSION Qualifiers: (25) Hyperlipidemia Code(s): E78.5 - HYPERLIPIDEMIA, UNSPECIFIED Qualifiers: (26) Intractable pain Code(s): R52 - PAIN, UNSPECIFIED (27) Mood disorder Code(s): F39 - UNSPECIFIED MOOD [AFFECTIVE] DISORDER (28) Opioid dependence Code(s): F11.20 - OPIOID DEPENDENCE, UNCOMPLICATED Qualifiers: Substance use status: uncomplicated Qualified Code(s): F11.20 - Opioid dependence, uncomplicated (29) Paroxysmal atrial fibrillation Code(s): I48.0 - PAROXYSMAL ATRIAL FIBRILLATION Assessment/Plan This is a 52 y/o woman Admitted for abnormal lab values +blood cultures for MRSA , Acute on Chronic Hypoxic Hypercapnic Respiratory Failure, Complicated UTI for further evaluation of their emergent condition. Plan: Admit to M/S Blood Cultures-repeated x2 Appreciate ID consult Appreciate Pulm consult Continue Zosyn UTI- will treat for complicated UTI secondary to ESBL, and multiple organisms Urine Culture- pending Monitor CBC, BMP Monitor Vitals Trach Care Continue home meds Continue pain meds judiciously closely monitoring resp status Aspiration precautions DVT ppx- SCDs, Continue Eliquis Dispo: Requires Inpatient Care Visit type - Emergency Visit Emergency Visit: Yes ED Registration Date: 10/29/18 Care time: The patient presented to the Emergency Department on the above date and was hospitalized for further evaluation of their emergent condition. - New Patient This patient is new to me today: Yes Date on this admission: 10/29/18 - Critical Care Critical Care patient: No
[2018-10-29] MEDS: KCL 10 MEQ IVPB 10 MEQ/100 ML INFUS.BAG IVPB SCH ×2 (21:05→21:25)
[2018-10-29] MEDS ORDERED: MAGNESIUM SULF 50% (8.12 MEQ/2 ML-1 GM VIAL) IVPB ONE (21:21)
[2018-10-29] MEDS ORDERED: POTASSIUM CHLORIDE TABS 20 MEQ TABLET.ER (FP) PO ONE ×2 (21:21→21:28)
[2018-10-29] MEDS ORDERED: HYDROmorphone HCL 2 MG TABLET ONE (21:27)
[2018-10-29] MEDS ORDERED: MAGNESIUM 1GM/D5W - 2 GM/200 ML IVPB IVPB ONE (21:28)
[2018-10-29] MEDS ORDERED: VANCOMYCIN 1 GRAM (PRE-DOCKED) 1,000 MG/250 ML BAG IVPB SCH (21:30)
[2018-10-29] MEDS ORDERED: ALBUTEROL SO4 8 GM HFA INHALER IH PRN (23:35)
[2018-10-29] MEDS ORDERED: GABAPENTIN 400 MG CAPSULE (FP) PO SCH (23:45)
[2018-10-30] MEDS ORDERED: BACLOFEN 10 MG TABLET (FP) ONE ×2 (00:10→05:43)
[2018-10-30] MEDS ORDERED: APIXABAN 5 MG TABLET PO ONE (00:10)
[2018-10-30] MEDS ORDERED: GABAPENTIN 100 MG CAPSULE (FP) ONE (00:11)
[2018-10-30] MEDS: APIXABAN 5 MG TABLET PO SCH ×3 (00:13→22:31)
[2018-10-30] MEDS: BACLOFEN 10 MG TABLET (FP) PO SCH ×4 (00:14→22:30)
[2018-10-30] MEDS ORDERED: ALPRAZolam 0.25 MG TABLET ONE (00:17)
[2018-10-30] MEDS: ALPRAZolam 0.25 MG TABLET PO PRN (00:21)
[2018-10-30] MEDS ORDERED: PIPERACILLIN/TAZOB 3.375 GM 3.375 GM in DEXTROSE 5%-WATER - 50 ML IVPB ONE ×2 (00:50→05:00)
[2018-10-30] MEDS ORDERED: ZOLPIDEM TARTRATE 5 MG TABLET PO ONE (03:54)
[2018-10-30] MEDS ORDERED: HYDROmorphone HCL 2 MG TABLET ONE (04:28)
[2018-10-30] MEDS ORDERED: VANCOMYCIN 1 GRAM (PRE-DOCKED) 1,000 MG/250 ML BAG IVPB ONE (05:44)
[2018-10-30] MEDS ORDERED: PIPERACILLIN/TAZOB 3.375 GM 3.375 GM/50 ML BAG IVPB ONE (05:45)
[2018-10-30 05:54] LABS: BASO % 2.1 % (0-2.0); EOS % 5.3 % (0-4.5); HEMOGLOBIN 9.5 GM/dL (10.7-15.3); MCH 24.3 pg (25.7-33.7); MCHC 29.7 g/dl (32.0-36.0); MEAN CELL VOLUME 82.1 fl (80-96); MEAN PLT VOLUME 8.9 fl (7.5-11.1); MONO % 7.4 % (3.8-10.2); NEUT % 69.2 % (42.8-82.8); PLATELET COUNT 405 K/MM3 (134-434); RDW 25.6 % (11.6-15.6); WHITE BLOOD COUNT 9.3 K/mm3 (4.0-10.0)
[2018-10-30] MEDS ORDERED: VANCOMYCIN 1 GRAM (PRE-DOCKED) 1,000 MG/250 ML BAG IVPB SCH (06:00)
[2018-10-30 06:06] LABS: ANION GAP 10 MMOL/L (8-16); BLOOD UREA NITROGEN 5 mg/dL (7-18); CALCIUM 7.9 mg/dL (8.5-10.1); CHLORIDE 104 mmol/L (98-107); CO2 25 mmol/L (21-32); CREATININE 0.9 mg/dL (0.55-1.3); GLUCOSE,RANDOM 78 mg/dL (74-106); POTASSIUM 3.3 mmol/L (3.5-5.1); SODIUM 140 mmol/L (136-145)
[2018-10-30] MEDS ORDERED: VANCOMYCIN 1,000 MG in DEXTROSE 5%-WATER - 250 ML IVPB SCH (10:00)
[2018-10-30] MEDS: GABAPENTIN 100 MG CAPSULE (FP) PO SCH ×3 (11:30→22:30)
[2018-10-30] MEDS: LEVOTHYROXINE NA 50 MCG TABLET (FP) PO SCH (11:30)
[2018-10-30] MEDS: VENLAFAXINE HCL 75 MG E.R. CAPSULES (FP) PO SCH (11:31)
[2018-10-30] MEDS: TOPIRAMATE 100 MG TABLET PO SCH (11:31)
[2018-10-30] MEDS: DOXEPIN HCL 25 MG CAPSULE PO SCH (11:31)
[2018-10-30] MEDS: RANITIDINE HCL 150 MG TABLET (FP) PO SCH ×2 (11:31→22:31)
[2018-10-30] MEDS: NYSTATIN POWDER 100,000 UNITS/GM - 15 GM TOPICAL POWDER TP SCH (11:32)
--- NOTE | 2018-10-30 11:59 | PN ---
Progress Note, Physician - Current Medication List Current Medications: Active Medications Acetaminophen (Tylenol -) 650 mg PO Q6H PRN PRN Reason: FEVER Albuterol Sulfate (Ventolin Hfa Inhaler -) 2 puff IH Q4H PRN PRN Reason: SHORT OF BREATH/WHEEZING Alprazolam (Xanax -) 0.25 mg PO Q8H PRN PRN Reason: ANXIETY Last Admin: 10/30/18 00:21 Dose: 0.25 mg Apixaban (Eliquis -) 5 mg PO BID [facility] Last Admin: 10/30/18 11:30 Dose: 5 mg Baclofen (Lioresal -) 20 mg PO TID [facility] Last Admin: 10/30/18 05:59 Dose: 20 mg Diltiazem HCl (Cardizem Cd -) 120 mg PO DAILY [facility] Last Admin: 10/30/18 11:41 Dose: 120 mg Doxepin HCl (Sinequan -) 25 mg PO DAILY [facility] Last Admin: 10/30/18 11:31 Dose: 25 mg Gabapentin (Neurontin -) 500 mg PO TID [facility] Last Admin: 10/30/18 11:30 Dose: 500 mg Hydromorphone HCl (Dilaudid -) 4 mg PO Q4H PRN PRN Reason: PAIN LEVEL 6-10 Vancomycin HCl (Vancomycin (Pre-Docked)) 1,000 mg in 250 mls @ 166.667 mls/hr IVPB BID@0600,1800 [facility]; Protocol Last Admin: 10/30/18 05:59 Dose: 166.667 mls/hr Piperacillin Sod/Tazobactam (Sod 3.375 gm/ Dextrose) 50 mls @ 100 mls/hr IVPB Q8H-IV [facility]; Protocol Levothyroxine Sodium (Synthroid -) 50 mcg PO DAILY@0700 [facility] Last Admin: 10/30/18 11:30 Dose: 50 mcg Montelukast Sodium (Singulair -) 10 mg PO [facility] Nystatin (Nystop Powder -) 1 applic TP DAILY [facility] Last Admin: 10/30/18 11:32 Dose: Not Given Ranitidine HCl (Zantac -) 300 mg PO [facility] Last Admin: 10/30/18 11:31 Dose: 300 mg Rosuvastatin Calcium (Crestor -) 10 mg PO HS [facility] Topiramate (Topamax -) 100 mg PO DAILY [facility] Last Admin: 10/30/18 11:31 Dose: 100 mg Venlafaxine HCl (Effexor Xr -) 75 mg PO DAILY [facility] Last Admin: 10/30/18 11:31 Dose: 75 mg Zolpidem Tartrate (Ambien -) 10 mg PO [facility] - Objective Vital Signs: Vital Signs Temperature 98.3 F 10/30/18 06:01 Pulse Rate 112 H 10/30/18 11:41 Respiratory Rate 19 10/30/18 11:41 Blood Pressure 140/84 10/30/18 11:41 O2 Sat by Pulse Oximetry (%) 96 10/30/18 09:50 Cardiovascular: Yes: S1, S2 Respiratory: Yes: Diminished, Other (trach) Gastrointestinal: Yes: Normal Bowel Sounds, Soft Labs: CBC, BMP 10/30/18 05:15 10/30/18 05:15 Problem List - Problems (1) Bacteremia due to methicillin resistant Staphylococcus aureus Assessment/Plan: Admit to M/S Blood Cultures-repeated x2 Appreciate ID consult Continue Zosyn UTI- will treat for complicated UTI secondary to ESBL, and multiple organisms Urine Culture- pending Monitor CBC, BMP Monitor Vitals Code(s): R78.81 - BACTEREMIA (2) Acute and chronic respiratory failure with hypoxia Assessment/Plan: Trach Care Continue home meds Continue pain meds judiciously closely monitoring resp status Aspiration precautions DVT ppx- SCDs, Continue Eliquis Code(s): J96.21 - ACUTE AND CHRONIC RESPIRATORY FAILURE WITH HYPOXIA
--- NOTE | 2018-10-30 14:22 | CON.PULM ---
Consult Consult Specialty:: PULM/CCM Referred by:: IRINEO Reason for Consultation:: SOB - History of Present Illness Chief Complaint: SOB History of Present Illness: 52 F, well known to our service due to multiple admissions. Extensive past medical/surgical history. COPD, Chronic Hypoxic Hypercapnic Respiratory Failure s/p Trach, Paroxysmal Afiib, HTN, IDDM, and Hypothyroidism. Recent hospitalization 10/18-10/23/18 for Sepsis due to bacteremia and UTI. Apparently called back to ER due to (+) blood cultures for MRSA. She does report some intermittent SOB. She is drowsy but easily arousable. CXR: No acute process - History Source History Provided By: Medical Record Limitations to Obtaining History: Clinical Condition - Past Medical History Cardio/Vascular: Yes: AFIB (Paroxysmal), HTN, Hyperlipdemia Pulmonary: Yes: Asthma, COPD, O2 Dependent, Previously Intubated Gastrointestinal: Yes: GI Bleed Renal/: Yes: Cancer (Uterine), Other ([place] in the past) Infectious Disease: Yes: C-Diff (june 2014), Other (Osteomyelitis of thoracic spine) Psych: Yes: Anxiety, Bipolar, Depression Musculoskeletal: Yes: Chronic low back pain, Other (multiple vertebral fractures ) Endocrine: Yes: Diabetes Mellitus, Hypothyroidism Additional Medical History: Frequent c/o abdominal pain-extensive w/u in the past negative. Presumed adhesions from prior surgeries. - Past Surgical History Past Surgical History: Yes: Appendectomy, Colectomy (By description, right colon resection with anastamosis noted on colonoscopy 2013), Hysterectomy (ADE/ BSO), Stent - Alcohol/Substance Use Hx Alcohol Use: No - Smoking History Smoking history: Former smoker Have you smoked in the past 12 months: No Aproximately how many cigarettes per day: 3 If you are a former smoker, when did you quit?: 1997 - Social History Usual Living Arrangement: Longterm 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) History of Recent Travel: No Home Medications - Allergies Allergies/Adverse Reactions: Allergies Allergy/AdvReac Type Severity Reaction Status Date / Time oxycodone [Oxycodone] Allergy Severe Nausea Verified 10/18/18 14:35 oxycodone HCl [From Percocet] Allergy Severe Nausea Verified 10/18/18 14:35 aspirin Allergy Mild Verified 10/18/18 14:35 blueberry [Blueberry] Allergy Mild Swelling Verified 10/18/18 14:35 fentanyl Allergy Mild Vomiting Verified 10/18/18 14:35 ibuprofen Allergy Swelling Verified 10/18/18 14:35 aspartame AdvReac Mild Itching Verified 10/18/18 14:35 - Home Medications Home Medications: Ambulatory Orders Albuterol Sulfate Inhaler - [Ventolin HFA Inhaler -] 2 puff IH Q4H PRN #0 inhaler 11/29/16 Acetaminophen [Tylenol .Regular Strength -] 650 mg PO Q6H PRN #0 tablet Apixaban [Eliquis -] 5 mg PO BID tablet 04/29/17 Baclofen 20 mg PO TID 07/09/18 Levocetirizine Dihydrochloride 5 mg PO HS 07/09/18 Levothyroxine [Synthroid -] 50 mcg PO DAILY 07/09/18 Rosuvastatin Calcium [Crestor] 10 mg PO DAILY 07/09/18 Venlafaxine HCl ER [Effexor Xr -] 75 mg PO DAILY 07/09/18 Famotidine 40 mg PO BID 08/07/18 Hydromorphone HCl 4 mg PO Q4H 08/07/18 Mirabegron [Myrbetriq] 50 mg PO DAILY 08/07/18 Montelukast Na [Singulair -] 10 mg PO HS 08/07/18 Doxepin HCl [Sinequan -] 25 mg PO DAILY #30 capsule 08/15/18 Linaclotide [Linzess] 145 mcg PO DAILY #30 cap 08/15/18 Pantoprazole Sodium [Protonix -] 40 mg PO DAILY #30 tablet.ec 08/15/18 Topiramate [Topamax -] 100 mg PO DAILY #30 tablet 08/15/18 Vortioxetine Hydrobromide [Trintellix] 20 mg PO DAILY #30 tablet 08/15/18 Gabapentin [Neurontin -] 500 mg PO Q8H #21 capsule 08/30/18 Insulin (Novolog) [Novolog -] 0 units SQ AC 08/30/18 Ondansetron [Zofran -] 8 mg PO TID 08/30/18 Zolpidem Tartrate 10 mg PO HS MDD 1 09/04/18 Gabapentin [Neurontin -] 500 mg PO TID #90 capsule 09/08/18 Ondansetron [Zofran *Odt*] 8 mg PO TID #90 tab.rapdis 09/09/18 Fluconazole [Diflucan -] 200 mg PO DAILY #7 tablet 09/18/18 Alprazolam [Xanax] 0.25 mg PO Q8H PRN tablet MDD 3 10/23/18 Diltiazem Cd [Cardizem Cd -] 120 mg PO DAILY #30 cap.cd.24h 10/23/18 Gabapentin [Neurontin -] 500 mg PO TID #60 capsule 10/23/18 Acetaminophen [Tylenol] 650 mg PO TID #21 tablet 10/27/18 Azithromycin 250 mg PO ONCE #4 tablet 10/27/18 Family Disease History - Family Disease History Family Disease History: Diabetes: Mother (Alive: heart surgery), Heart Disease: Mother, [place]: Father (: leukemia), Other: Brother (2,Healthy), Sister (1, Healthy) Review of Systems - Review of Systems Constitutional: reports: Lethargy, Malaise. denies: Night Sweats Eyes: reports: No Symptoms HENT: reports: No Symptoms Neck: reports: No Symptoms Cardiovascular: denies: Chest Pain, Palpitations, Shortness of Breath Respiratory: reports: Cough, SOB, SOB on Exertion. denies: Hemoptysis, Wheezing Gastrointestinal: reports: No Symptoms Genitourinary: reports: No Symptoms Breasts: reports: No Symptoms Reported Musculoskeletal: reports: No Symptoms Integumentary: reports: No Symptoms Neurological: reports: Confusion Endocrine: reports: No Symptoms Hematology/Lymphatic: reports: No Symptoms Psychiatric: reports: Anxiety, Depression Physical Exam Vital Sings: Vital Signs Temperature 98.6 F 10/30/18 13:30 Pulse Rate 62 10/30/18 13:30 Respiratory Rate 24 H 10/30/18 13:30 Blood Pressure 105/66 10/30/18 13:30 O2 Sat by Pulse Oximetry (%) 96 10/30/18 09:50 Constitutional: Yes: No Distress Eyes: Yes: Conjunctiva Clear, EOM Intact HENT: Yes: Atraumatic, Normocephalic Neck: Yes: Trachea Midline, Other (Trach intact ) Cardiovascular: Yes: Regular Rate and Rhythm Respiratory: Yes: Accessory Muscle Use, Cough, Diminished. No: Rales, Rhonchi, Stridor, Wheezes ...Clubbing: No Gastrointestinal: Yes: Normal Bowel Sounds, Soft, Abdomen, Obese Musculoskeletal: Yes: Joint Stiffness Extremities: Yes: Shortened Edema: No Peripheral Pulses WNL: Yes Integumentary: Yes: WNL Neurological: Yes: Lethargy Labs: CBC, BMP 10/30/18 05:15 10/30/18 05:15 Imaging - Results Chest X-ray: Report Reviewed, Image Reviewed Problem List - Problems (1) Bacteremia due to methicillin resistant Staphylococcus aureus Code(s): R78.81 - BACTEREMIA (2) Anemia Code(s): D64.9 - ANEMIA, UNSPECIFIED (3) Bipolar 1 disorder Code(s): F31.9 - BIPOLAR DISORDER, UNSPECIFIED (4) Chronic respiratory failure Code(s): J96.10 - CHRONIC RESPIRATORY FAILURE, UNSP W HYPOXIA OR HYPERCAPNIA (5) Constipation Code(s): K59.00 - CONSTIPATION, UNSPECIFIED (6) Diabetes Code(s): E11.9 - TYPE 2 DIABETES MELLITUS WITHOUT COMPLICATIONS (7) Hypothyroid Code(s): E03.9 - HYPOTHYROIDISM, UNSPECIFIED Qualifiers: Hypothyroidism type: unspecified Qualified Code(s): E03.9 - Hypothyroidism , unspecified (8) Insomnia disorder Code(s): G47.00 - INSOMNIA, UNSPECIFIED (9) Knee pain Code(s): M25.569 - PAIN IN UNSPECIFIED KNEE Qualifiers: Chronicity: acute Laterality: left Qualified Code(s): M25.562 - Pain in left knee (10) Lethargy Code(s): R53.83 - OTHER FATIGUE (11) Tracheostomy in place Code(s): Z93.0 - TRACHEOSTOMY STATUS (12) Anxiety Code(s): F41.9 - ANXIETY DISORDER, UNSPECIFIED (13) Asthma Code(s): J45.909 - UNSPECIFIED ASTHMA, UNCOMPLICATED (14) COPD (chronic obstructive pulmonary disease) Code(s): J44.9 - CHRONIC OBSTRUCTIVE PULMONARY DISEASE, UNSPECIFIED Qualifiers: COPD type: unspecified COPD Qualified Code(s): J44.9 - Chronic obstructive pulmonary disease, unspecified (15) Chronic pain disorder Code(s): G89.4 - CHRONIC PAIN SYNDROME (16) Depression with anxiety Code(s): F41.8 - OTHER SPECIFIED ANXIETY DISORDERS (17) Diabetes mellitus Code(s): E11.9 - TYPE 2 DIABETES MELLITUS WITHOUT COMPLICATIONS Qualifiers: Diabetes mellitus type: type 2 (18) GERD (gastroesophageal reflux disease) Code(s): K21.9 - GASTRO-ESOPHAGEAL REFLUX DISEASE WITHOUT ESOPHAGITIS (19) HTN (hypertension) Code(s): I10 - ESSENTIAL (PRIMARY) HYPERTENSION Qualifiers: (20) Hyperlipidemia Code(s): E78.5 - HYPERLIPIDEMIA, UNSPECIFIED Qualifiers: (21) Neuropathy Code(s): G62.9 - POLYNEUROPATHY, UNSPECIFIED (22) Paroxysmal atrial fibrillation Code(s): I48.0 - PAROXYSMAL ATRIAL FIBRILLATION Assessment/Plan ABX per ID Check ABG to R/O hypercapnia Trach collar Follow cultures Aspiration precautions BD TX PRN No need for Systemic steroids VTE prophylaxis Will follow Dr Castaneda
--- NOTE | 2018-10-30 15:04 | PN ---
Progress Note (short form) - Note Progress Note: ID Consult dictated Recurrent MRSA bacteremia ? polymicrobial bacteremia Elevated Vancomycin level Hold vancomycin Check random level Contact precautions
[2018-10-30 15:43] LABS: ARTERIAL BLOOD GAS BASE EXCESS 1.3 meq/l (-2-2); ARTERIAL BLOOD GAS PO2 62.9 mmHg (80-100); ARTERIAL BLOOD GAS pH 7.37 (7.35-7.45)
--- NOTE | 2018-10-30 16:30 | CONS ---
DATE OF CONSULTATION: DATE OF DICTATION: 10/30/2018 HISTORY OF PRESENT ILLNESS: The patient is a 52-year-old female being evaluated for recurrent MRSA bacteremia. The patient was evaluated in the emergency room on October 27, 2018 for worsening shortness of breath. At that time, blood cultures were obtained and were positive for MRSA. She is now admitted for evaluation and treatment. She complained of continued shortness of breath. She denies any chest pain, cough or sputum production. She has no complaints of fever or chills. The patient has had multiple recent hospital admissions. She was most recently hospitalized from October 18 through October 23, 2018. She was hospitalized in August, at which time her course was complicated by MRSA bacteremia. Cultures were positive from September 18, 2018. She received a four-week course of IV vancomycin. She was noted to have stage 1 skin breakdown in the perineum and anogenital area which is presumably the source of her bacteremia. PAST MEDICAL HISTORY: Positive for insulin-dependent diabetes mellitus, bipolar disorder, hypothyroidism, COPD, chronic respiratory failure, atrial fibrillation, hypertension. PAST SURGICAL HISTORY: Status post tracheostomy. ALLERGIES: OXYCODONE, ASPIRIN, FENTANYL, IBUPROFEN. HOME MEDICATIONS: Albuterol, Eliquis, Synthroid, Crestor, Effexor, Pepcid, Sinequan, Linzess, Protonix, Topamax, Neurontin, Cardizem. SOCIAL HISTORY: The patient lives in the community. She is a former smoker. REVIEW OF SYSTEMS: Neurologic: No loss of consciousness, seizure activity or focal weakness. Cardiac: Negative for chest pain or palpitations. Respiratory: Positive for chronic respiratory failure. Gastrointestinal: Negative for vomiting or diarrhea. Genitourinary: Negative for urinary tract infection. LABORATORY DATA: White count on admission 11.4, presently 9.3. Hematocrit 32.0, platelet count 405, creatinine 0.9. Urinalysis shows 45 white cells. Vancomycin trough 44. Blood cultures from October 27 positive for presumed MRSA and coagulase-negative staph. PHYSICAL EXAMINATION: General: The patient is awake, in no acute distress. Her breathing is unlabored. Vital Signs: Temperature 98.6, blood pressure 105/66, pulse 62 and regular, respirations 24 per minute. HEENT:: Sclerae anicteric. The patient is status post tracheostomy. Heart: Heart sounds S1, S2. No murmur. Lungs: Scattered rhonchi. Abdomen: Soft, obese, nontender. Skin: Stage 1 skin breakdown in the perineum and in the anogenital area. Extremities: Negative for edema. IMPRESSION: 1. Recurrent MRSA bacteremia; polymicrobial bacteremia/sepsis, likely skin source. 2. Chronic respiratory failure. 3. Elevated vancomycin trough level.. PLAN: 1. Await final identification of blood isolates. 2. Would hold vancomycin pending a repeat random level, although I suspect this is not a true trough level as it appears to have been drawn four hours after the vancomycin infusion. 3. Contact precautions. 4. We will follow. Thank you for the kind referral. DENISHA ALMANZAR M.D. [id number]
[2018-10-30] MEDS ORDERED: PIPERACILLIN/TAZOB 3.375 GM 3.375 GM in DEXTROSE 5%-WATER - 50 ML IVPB SCH (18:00)
--- NOTE | 2018-10-30 21:23 | EKG ---
Test Reason : Blood Pressure : / mmHG Vent. Rate : 125 BPM Atrial Rate : 125 BPM P-R Int : 130 ms QRS Dur : 082 ms QT Int : 304 ms P-R-T Axes : 058 049 036 degrees QTc Int : 438 ms SINUS TACHYCARDIA OTHERWISE NORMAL ECG WHEN COMPARED WITH ECG OF 27-OCT-2018 14:33, CRITERIA FOR INFERIOR INFARCT ARE NO LONGER PRESENT NONSPECIFIC T WAVE ABNORMALITY HAS REPLACED INVERTED T WAVES IN INFERIOR LEADS Confirmed by LATOYA WRIGHT, FANNY ([id number]) on 10/30/2018 9:23:06 PM Referred By: Confirmed By:FANNY KLEIN MD
[2018-10-30] MEDS ORDERED: ZOLPIDEM TARTRATE 5 MG TABLET PO SCH (22:00)
[2018-10-30] MEDS: MONTELUKAST NA 10 MG TABLET PO SCH (22:30)
[2018-10-30] MEDS: ROSUVASTATIN CA 10 MG TABLET (FP) PO SCH (22:31)
[2018-10-31] MEDS: LEVOTHYROXINE NA 50 MCG TABLET (FP) PO SCH (06:06)
[2018-10-31] MEDS: BACLOFEN 10 MG TABLET (FP) PO SCH ×3 (06:06→21:53)
[2018-10-31] MEDS: GABAPENTIN 100 MG CAPSULE (FP) PO SCH ×3 (06:07→21:53)
[2018-10-31] MEDS ORDERED: PT OWN MED DRAWER 7, Y5N ONE (10:11)
[2018-10-31] MEDS: TOPIRAMATE 100 MG TABLET PO SCH (10:45)
[2018-10-31] MEDS: APIXABAN 5 MG TABLET PO SCH ×2 (10:45→21:53)
[2018-10-31] MEDS: DOXEPIN HCL 25 MG CAPSULE PO SCH (10:45)
[2018-10-31] MEDS: VENLAFAXINE HCL 75 MG E.R. CAPSULES (FP) PO SCH (10:45)
--- NOTE | 2018-10-31 11:15 | PN ---
Progress Note (short form) - Note Progress Note: Remains lethargic but easily arousable. Denies CP or SOB. ABG: compensated respiratory acidosis Intake & Output 10/28/18 10/29/18 10/30/18 10/31/18 23:59 23:59 23:59 23:59 Intake Total 200 Balance 200 Weight 135 lb 133 lb 6 oz Last Vital Signs Temp Pulse Resp BP Pulse Ox 98.2 F 98 H 20 122/67 100 10/31/18 07:01 10/31/18 07:01 10/31/18 07:01 10/31/18 07:01 10/30/18 21:00 Active Medications Acetaminophen (Tylenol -) 650 mg PO Q6H PRN PRN Reason: FEVER Albuterol Sulfate (Ventolin Hfa Inhaler -) 2 puff IH Q4H PRN PRN Reason: SHORT OF BREATH/WHEEZING Alprazolam (Xanax -) 0.25 mg PO Q8H PRN PRN Reason: ANXIETY Last Admin: 10/30/18 00:21 Dose: 0.25 mg Apixaban (Eliquis -) 5 mg PO BID [facility] Last Admin: 10/31/18 10:45 Dose: 5 mg Baclofen (Lioresal -) 20 mg PO TID [facility] Last Admin: 10/31/18 06:06 Dose: 20 mg Diltiazem HCl (Cardizem Cd -) 120 mg PO DAILY [facility] Last Admin: 10/31/18 10:44 Dose: 120 mg Doxepin HCl (Sinequan -) 25 mg PO DAILY [facility] Last Admin: 10/31/18 10:45 Dose: 25 mg Gabapentin (Neurontin -) 500 mg PO TID [facility] Last Admin: 10/31/18 06:07 Dose: 500 mg Hydromorphone HCl (Dilaudid -) 4 mg PO Q4H PRN PRN Reason: PAIN LEVEL 6-10 Levothyroxine Sodium (Synthroid -) 50 mcg PO DAILY@0700 [facility] Last Admin: 10/31/18 06:06 Dose: 50 mcg Montelukast Sodium (Singulair -) 10 mg PO HS [facility] Last Admin: 10/30/18 22:30 Dose: 10 mg Nystatin (Nystop Powder -) 1 applic TP DAILY [facility] Last Admin: 10/30/18 11:32 Dose: Not Given Ranitidine HCl (Zantac -) 300 mg PO [facility] Last Admin: 10/30/18 22:31 Dose: 300 mg Rosuvastatin Calcium (Crestor -) 10 mg PO [facility] Last Admin: 10/30/18 22:31 Dose: 10 mg Topiramate (Topamax -) 100 mg PO DAILY [facility] Last Admin: 10/31/18 10:45 Dose: 100 mg Venlafaxine HCl (Effexor Xr -) 75 mg PO DAILY [facility] Last Admin: 10/31/18 10:45 Dose: 75 mg Zolpidem Tartrate (Ambien -) 10 mg PO PRN PRN Reason: INSOMNIA Constitutional: Yes: No Distress Eyes: Yes: Conjunctiva Clear, EOM Intact HENT: Yes: Atraumatic, Normocephalic Neck: Yes: Trachea Midline, Other (Trach intact ) Cardiovascular: Yes: Regular Rate and Rhythm Respiratory: Yes: Accessory Muscle Use, Cough, Diminished. No: Rales, Rhonchi, Stridor, Wheezes ...Clubbing: No Gastrointestinal: Yes: Normal Bowel Sounds, Soft, Abdomen, Obese Musculoskeletal: Yes: Joint Stiffness Extremities: Yes: Shortened Edema: No Peripheral Pulses WNL: Yes Integumentary: Yes: WNL Neurological: Yes: Lethargy Labs: Laboratory Results - last 24 hr 10/30/18 10/30/18 10/30/18 10:10 12:25 15:40 Puncture Site Right radial ABG pH 7.37 ABG pCO2 at Pt Temp 46.0 H ABG pO2 at Pt Temp 62.9 L D ABG HCO3 26.2 H ABG O2 Sat (Measured) 89.0 L ABG O2 Content 11.5 L ABG Base Excess 1.3 Francis Test No Result Required. Oxygen Flow Rate 40% POC Glucometer 89 Random Vancomycin Vancomycin Pre-Dose 44.9 H* 10/30/18 10/31/18 17:58 06:00 Puncture Site ABG pH ABG pCO2 at Pt Temp ABG pO2 at Pt Temp ABG HCO3 ABG O2 Sat (Measured) ABG O2 Content ABG Base Excess Francis Test Oxygen Flow Rate POC Glucometer 96 Random Vancomycin 21.6 Vancomycin Pre-Dose Problem List - Problems (1) Bacteremia due to methicillin resistant Staphylococcus aureus Code(s): R78.81 - BACTEREMIA (2) Anemia Code(s): D64.9 - ANEMIA, UNSPECIFIED (3) Bipolar 1 disorder Code(s): F31.9 - BIPOLAR DISORDER, UNSPECIFIED (4) Chronic respiratory failure Code(s): J96.10 - CHRONIC RESPIRATORY FAILURE, UNSP W HYPOXIA OR HYPERCAPNIA (5) Constipation Code(s): K59.00 - CONSTIPATION, UNSPECIFIED (6) Diabetes Code(s): E11.9 - TYPE 2 DIABETES MELLITUS WITHOUT COMPLICATIONS (7) Hypothyroid Code(s): E03.9 - HYPOTHYROIDISM, UNSPECIFIED Qualifiers: Hypothyroidism type: unspecified Qualified Code(s): E03.9 - Hypothyroidism , unspecified (8) Insomnia disorder Code(s): G47.00 - INSOMNIA, UNSPECIFIED (9) Knee pain Code(s): M25.569 - PAIN IN UNSPECIFIED KNEE Qualifiers: Chronicity: acute Laterality: left Qualified Code(s): M25.562 - Pain in left knee (10) Lethargy Code(s): R53.83 - OTHER FATIGUE (11) Tracheostomy in place Code(s): Z93.0 - TRACHEOSTOMY STATUS (12) Anxiety Code(s): F41.9 - ANXIETY DISORDER, UNSPECIFIED (13) Asthma Code(s): J45.909 - UNSPECIFIED ASTHMA, UNCOMPLICATED (14) COPD (chronic obstructive pulmonary disease) Code(s): J44.9 - CHRONIC OBSTRUCTIVE PULMONARY DISEASE, UNSPECIFIED Qualifiers: COPD type: unspecified COPD Qualified Code(s): J44.9 - Chronic obstructive pulmonary disease, unspecified (15) Chronic pain disorder Code(s): G89.4 - CHRONIC PAIN SYNDROME (16) Depression with anxiety Code(s): F41.8 - OTHER SPECIFIED ANXIETY DISORDERS (17) Diabetes mellitus Code(s): E11.9 - TYPE 2 DIABETES MELLITUS WITHOUT COMPLICATIONS Qualifiers: Diabetes mellitus type: type 2 (18) GERD (gastroesophageal reflux disease) Code(s): K21.9 - GASTRO-ESOPHAGEAL REFLUX DISEASE WITHOUT ESOPHAGITIS (19) HTN (hypertension) Code(s): I10 - ESSENTIAL (PRIMARY) HYPERTENSION Qualifiers: (20) Hyperlipidemia Code(s): E78.5 - HYPERLIPIDEMIA, UNSPECIFIED Qualifiers: (21) Neuropathy Code(s): G62.9 - POLYNEUROPATHY, UNSPECIFIED (22) Paroxysmal atrial fibrillation Code(s): I48.0 - PAROXYSMAL ATRIAL FIBRILLATION Assessment/Plan ABX per ID Trach collar O2 Follow cultures Aspiration precautions BD TX PRN No need for Systemic steroids VTE prophylaxis Dr Castaneda Problem List - Problems (1) Bacteremia due to methicillin resistant Staphylococcus aureus Code(s): R78.81 - BACTEREMIA (2) Anemia Code(s): D64.9 - ANEMIA, UNSPECIFIED (3) Bipolar 1 disorder Code(s): F31.9 - BIPOLAR DISORDER, UNSPECIFIED (4) Chronic respiratory failure Code(s): J96.10 - CHRONIC RESPIRATORY FAILURE, UNSP W HYPOXIA OR HYPERCAPNIA (5) Constipation Code(s): K59.00 - CONSTIPATION, UNSPECIFIED (6) Diabetes Code(s): E11.9 - TYPE 2 DIABETES MELLITUS WITHOUT COMPLICATIONS (7) Hypothyroid Code(s): E03.9 - HYPOTHYROIDISM, UNSPECIFIED Qualifiers: Hypothyroidism type: unspecified Qualified Code(s): E03.9 - Hypothyroidism , unspecified (8) Insomnia disorder Code(s): G47.00 - INSOMNIA, UNSPECIFIED (9) Knee pain Code(s): M25.569 - PAIN IN UNSPECIFIED KNEE Qualifiers: Chronicity: acute Laterality: left Qualified Code(s): M25.562 - Pain in left knee (10) Lethargy Code(s): R53.83 - OTHER FATIGUE (11) Tracheostomy in place Code(s): Z93.0 - TRACHEOSTOMY STATUS (12) Anxiety Code(s): F41.9 - ANXIETY DISORDER, UNSPECIFIED (13) Asthma Code(s): J45.909 - UNSPECIFIED ASTHMA, UNCOMPLICATED (14) COPD (chronic obstructive pulmonary disease) Code(s): J44.9 - CHRONIC OBSTRUCTIVE PULMONARY DISEASE, UNSPECIFIED Qualifiers: COPD type: unspecified COPD Qualified Code(s): J44.9 - Chronic obstructive pulmonary disease, unspecified (15) Chronic pain disorder Code(s): G89.4 - CHRONIC PAIN SYNDROME (16) Depression with anxiety Code(s): F41.8 - OTHER SPECIFIED ANXIETY DISORDERS (17) Diabetes mellitus Code(s): E11.9 - TYPE 2 DIABETES MELLITUS WITHOUT COMPLICATIONS Qualifiers: Diabetes mellitus type: type 2 (18) GERD (gastroesophageal reflux disease) Code(s): K21.9 - GASTRO-ESOPHAGEAL REFLUX DISEASE WITHOUT ESOPHAGITIS (19) HTN (hypertension) Code(s): I10 - ESSENTIAL (PRIMARY) HYPERTENSION Qualifiers: (20) Hyperlipidemia Code(s): E78.5 - HYPERLIPIDEMIA, UNSPECIFIED Qualifiers: (21) Neuropathy Code(s): G62.9 - POLYNEUROPATHY, UNSPECIFIED (22) Paroxysmal atrial fibrillation Code(s): I48.0 - PAROXYSMAL ATRIAL FIBRILLATION
--- NOTE | 2018-10-31 14:34 | PN ---
Progress Note, Physician - Current Medication List Current Medications: Active Medications Acetaminophen (Tylenol -) 650 mg PO Q6H PRN PRN Reason: FEVER Albuterol Sulfate (Ventolin Hfa Inhaler -) 2 puff IH Q4H PRN PRN Reason: SHORT OF BREATH/WHEEZING Alprazolam (Xanax -) 0.25 mg PO Q8H PRN PRN Reason: ANXIETY Last Admin: 10/30/18 00:21 Dose: 0.25 mg Apixaban (Eliquis -) 5 mg PO BID [facility] Last Admin: 10/31/18 10:45 Dose: 5 mg Baclofen (Lioresal -) 20 mg PO TID [facility] Last Admin: 10/31/18 13:47 Dose: 20 mg Diltiazem HCl (Cardizem Cd -) 120 mg PO DAILY [facility] Last Admin: 10/31/18 10:44 Dose: 120 mg Doxepin HCl (Sinequan -) 25 mg PO DAILY [facility] Last Admin: 10/31/18 10:45 Dose: 25 mg Gabapentin (Neurontin -) 500 mg PO TID [facility] Last Admin: 10/31/18 13:47 Dose: 500 mg Hydromorphone HCl (Dilaudid -) 4 mg PO Q4H PRN PRN Reason: PAIN LEVEL 6-10 Levothyroxine Sodium (Synthroid -) 50 mcg PO DAILY@0700 [facility] Last Admin: 10/31/18 06:06 Dose: 50 mcg Montelukast Sodium (Singulair -) 10 mg PO HS [facility] Last Admin: 10/30/18 22:30 Dose: 10 mg Nystatin (Nystop Powder -) 1 applic TP DAILY [facility] Last Admin: 10/30/18 11:32 Dose: Not Given Ranitidine HCl (Zantac -) 300 mg PO HS [facility] Last Admin: 10/30/18 22:31 Dose: 300 mg Rosuvastatin Calcium (Crestor -) 10 mg PO HS [facility] Last Admin: 10/30/18 22:31 Dose: 10 mg Topiramate (Topamax -) 100 mg PO DAILY [facility] Last Admin: 10/31/18 10:45 Dose: 100 mg Venlafaxine HCl (Effexor Xr -) 75 mg PO DAILY [facility] Last Admin: 10/31/18 10:45 Dose: 75 mg Zolpidem Tartrate (Ambien -) 10 mg PO HS PRN PRN Reason: INSOMNIA - Objective Vital Signs: Vital Signs Temperature 98.2 F 10/31/18 07:01 Pulse Rate 98 H 10/31/18 07:01 Respiratory Rate 20 10/31/18 07:01 Blood Pressure 122/67 10/31/18 07:01 O2 Sat by Pulse Oximetry (%) 100 10/30/18 21:00 Cardiovascular: Yes: S1, S2 Respiratory: Yes: Rhonchi, Other (on trach) Gastrointestinal: Yes: Normal Bowel Sounds, Soft Neurological: Yes: Confusion, Weakness Labs: CBC, BMP 10/30/18 05:15 10/30/18 05:15 Problem List - Problems (1) Bacteremia due to methicillin resistant Staphylococcus aureus Assessment/Plan: Admit to M/S Blood Cultures-repeated x2 Appreciate ID consult Continue Zosyn UTI- will treat for complicated UTI secondary to ESBL, and multiple organisms Urine Culture- pending Monitor CBC, BMP Monitor Vitals Code(s): R78.81 - BACTEREMIA (2) Acute and chronic respiratory failure with hypoxia Assessment/Plan: Trach Care Continue home meds Continue pain meds judiciously closely monitoring resp status Aspiration precautions DVT ppx- SCDs, Continue Eliquis Code(s): J96.21 - ACUTE AND CHRONIC RESPIRATORY FAILURE WITH HYPOXIA (3) Change in mental state Assessment/Plan: ct head neuro Code(s): R41.82 - ALTERED MENTAL STATUS, UNSPECIFIED
[2018-10-31] MEDS: NYSTATIN POWDER 100,000 UNITS/GM - 15 GM TOPICAL POWDER TP SCH (14:55)
[2018-10-31 15:06] LABS: ALBUMIN 1.9 g/dl (3.4-5.0); ALK PHOS 176 U/L (45-117); ANION GAP 9 MMOL/L (8-16); BILIRUBIN,TOTAL 0.3 mg/dL (0.2-1); BLOOD UREA NITROGEN 5 mg/dL (7-18); CALCIUM 7.9 mg/dL (8.5-10.1); CHLORIDE 109 mmol/L (98-107); CO2 27 mmol/L (21-32); CREATININE 1.1 mg/dL (0.55-1.3); GLUCOSE,RANDOM 103 mg/dL (74-106); POTASSIUM 3.4 mmol/L (3.5-5.1); SGOT/AST 34 U/L (15-37); SGPT/ALT 18 U/L (13-61); SODIUM 145 mmol/L (136-145)
[2018-10-31 16:20] LABS: BASO % 4.3 % (0-2.0); EOS % 5.2 % (0-4.5); HEMOGLOBIN 9.4 GM/dL (10.7-15.3); LYMPH % 19.3 % (8-40); MCH 26.4 pg (25.7-33.7); MCHC 31.3 g/dl (32.0-36.0); MEAN CELL VOLUME 84.5 fl (80-96); MEAN PLT VOLUME 8.6 fl (7.5-11.1); MONO % 9.4 % (3.8-10.2); NEUT % 61.8 % (42.8-82.8); PLATELET COUNT 452 K/MM3 (134-434); RBC 3.55 M/mm3 (3.60-5.2); RDW 27.2 % (11.6-15.6); WHITE BLOOD COUNT 8.9 K/mm3 (4.0-10.0)
[2018-10-31 17:14] LABS: ANISOCYTOSIS 2+; PLATELET ESTIMATE ADEQUATE
[2018-10-31] MEDS: RANITIDINE HCL 150 MG TABLET (FP) PO SCH (21:52)
[2018-10-31] MEDS: MONTELUKAST NA 10 MG TABLET PO SCH (21:52)
[2018-10-31] MEDS: INSULIN SLIDING SCALE (NOVOLOG) 1 VIAL SQ SCH (21:53)
[2018-10-31] MEDS: ROSUVASTATIN CA 10 MG TABLET (FP) PO SCH (21:53)
[2018-10-31] MEDS: ZOLPIDEM TARTRATE 5 MG TABLET PO PRN (22:43)
[2018-11-01] MEDS: GABAPENTIN 100 MG CAPSULE (FP) PO SCH ×2 (06:32→14:06)
[2018-11-01] MEDS: INSULIN SLIDING SCALE (NOVOLOG) 1 VIAL SQ SCH ×4 (06:32→21:56)
[2018-11-01] MEDS: LEVOTHYROXINE NA 50 MCG TABLET (FP) PO SCH (06:33)
[2018-11-01] MEDS: BACLOFEN 10 MG TABLET (FP) PO SCH ×3 (06:33→21:49)
[2018-11-01] MEDS ORDERED: INSULIN (NOVOLOG) ASPART 100 UNITS/ML 10ML VIAL ONE ×2 (06:51→11:17)
[2018-11-01 07:45] LABS: BASO % 1.2 % (0-2.0); EOS % 7.4 % (0-4.5); HEMATOCRIT 29.3 % (32.4-45.2); HEMOGLOBIN 8.6 GM/dL (10.7-15.3); LYMPH % 17.7 % (8-40); MCH 24.8 pg (25.7-33.7); MCHC 29.5 g/dl (32.0-36.0); MEAN CELL VOLUME 84.3 fl (80-96); MEAN PLT VOLUME 8.8 fl (7.5-11.1); MONO % 8.2 % (3.8-10.2); NEUT % 65.5 % (42.8-82.8); PLATELET COUNT 353 K/MM3 (134-434); RBC 3.48 M/mm3 (3.60-5.2); WHITE BLOOD COUNT 11.4 K/mm3 (4.0-10.0)
[2018-11-01 08:55] LABS: ALBUMIN 1.9 g/dl (3.4-5.0); ALK PHOS 180 U/L (45-117); ANION GAP 11 MMOL/L (8-16); BILIRUBIN,TOTAL 0.3 mg/dL (0.2-1); BLOOD UREA NITROGEN 6 mg/dL (7-18); CALCIUM 7.8 mg/dL (8.5-10.1); CHLORIDE 107 mmol/L (98-107); CO2 24 mmol/L (21-32); CREATININE 0.9 mg/dL (0.55-1.3); GLUCOSE,RANDOM 74 mg/dL (74-106); POTASSIUM 3.5 mmol/L (3.5-5.1); SGOT/AST 35 U/L (15-37); SGPT/ALT 16 U/L (13-61); SODIUM 142 mmol/L (136-145)
[2018-11-01] MEDS ORDERED: PT OWN MED DRAWER 7, Y5N ONE ×2 (09:58→17:47)
[2018-11-01] MEDS: TOPIRAMATE 100 MG TABLET PO SCH (10:03)
[2018-11-01] MEDS: VENLAFAXINE HCL 75 MG E.R. CAPSULES (FP) PO SCH (10:03)
[2018-11-01] MEDS: APIXABAN 5 MG TABLET PO SCH ×2 (10:03→21:48)
[2018-11-01] MEDS: DOXEPIN HCL 25 MG CAPSULE PO SCH (10:03)
[2018-11-01] MEDS: NYSTATIN POWDER 100,000 UNITS/GM - 15 GM TOPICAL POWDER TP SCH (10:04)
--- NOTE | 2018-11-01 11:07 | PN ---
Progress Note (short form) - Note Progress Note: Remains lethargic but easily arousable. Denies CP or SOB. Intake & Output 10/29/18 10/30/18 10/31/18 11/01/18 23:59 23:59 23:59 23:59 Intake Total 200 350 260 Balance 200 350 260 Weight 135 lb 133 lb 6 oz Last Vital Signs Temp Pulse Resp BP Pulse Ox 98.9 F 112 H 18 121/78 96 11/01/18 03:00 11/01/18 03:00 11/01/18 03:00 11/01/18 03:00 10/31/18 21:00 Active Medications Acetaminophen (Tylenol -) 650 mg PO Q6H PRN PRN Reason: FEVER Albuterol Sulfate (Ventolin Hfa Inhaler -) 2 puff IH Q4H PRN PRN Reason: SHORT OF BREATH/WHEEZING Alprazolam (Xanax -) 0.25 mg PO Q8H PRN PRN Reason: ANXIETY Last Admin: 10/30/18 00:21 Dose: 0.25 mg Apixaban (Eliquis -) 5 mg PO BID [facility] Last Admin: 11/01/18 10:03 Dose: 5 mg Baclofen (Lioresal -) 20 mg PO TID [facility] Last Admin: 11/01/18 06:33 Dose: 20 mg Diltiazem HCl (Cardizem Cd -) 120 mg PO DAILY [facility] Last Admin: 11/01/18 10:03 Dose: 120 mg Doxepin HCl (Sinequan -) 25 mg PO DAILY [facility] Last Admin: 11/01/18 10:03 Dose: 25 mg Gabapentin (Neurontin -) 500 mg PO TID [facility] Last Admin: 11/01/18 06:32 Dose: 500 mg Hydromorphone HCl (Dilaudid -) 4 mg PO Q4H PRN PRN Reason: PAIN LEVEL 6-10 Last Admin: 10/31/18 22:43 Dose: 4 mg Insulin Aspart (Novolog Vial Sliding Scale -) 1 vial SQ ACHS [facility]; Protocol Last Admin: 11/01/18 06:32 Dose: Not Given Levothyroxine Sodium (Synthroid -) 50 mcg PO DAILY@0700 [facility] Last Admin: 11/01/18 06:33 Dose: 50 mcg Montelukast Sodium (Singulair -) 10 mg PO HS [facility] Last Admin: 12/09/18 21:52 Dose: 10 mg Nystatin (Nystop Powder -) 1 applic TP DAILY [facility] Last Admin: 11/01/18 10:04 Dose: 1 applic Ranitidine HCl (Zantac -) 300 mg PO HS [facility] Last Admin: 10/31/18 21:52 Dose: 300 mg Rosuvastatin Calcium (Crestor -) 10 mg PO HS [facility] Last Admin: 10/31/18 21:53 Dose: 10 mg Topiramate (Topamax -) 100 mg PO DAILY [facility] Last Admin: 11/01/18 10:03 Dose: 100 mg Venlafaxine HCl (Effexor Xr -) 75 mg PO DAILY [facility] Last Admin: 11/01/18 10:03 Dose: 75 mg Zolpidem Tartrate (Ambien -) 10 mg PO HS PRN PRN Reason: INSOMNIA Last Admin: 10/31/18 22:43 Dose: 10 mg Constitutional: Yes: No Distress Eyes: Yes: Conjunctiva Clear, EOM Intact HENT: Yes: Atraumatic, Normocephalic Neck: Yes: Trachea Midline, Other (Trach intact ) Cardiovascular: Yes: Regular Rate and Rhythm Respiratory: Yes: Accessory Muscle Use, Cough, Diminished. No: Rales, Rhonchi, Stridor, Wheezes ...Clubbing: No Gastrointestinal: Yes: Normal Bowel Sounds, Soft, Abdomen, Obese Musculoskeletal: Yes: Joint Stiffness Extremities: Yes: Shortened Edema: No Peripheral Pulses WNL: Yes Integumentary: Yes: WNL Neurological: Yes: Lethargy Labs: Laboratory Results - last 24 hr 10/31/18 10/31/18 10/31/18 07:00 07:00 11:49 WBC 8.9 RBC 3.55 L Hgb 9.4 L Hct 30.0 L MCV 84.5 MCH 26.4 MCHC 31.3 L RDW 27.2 H Plt Count 452 H MPV 8.6 Absolute Neuts (auto) 5.5 Neutrophils % 61.8 Lymphocytes % 19.3 D Monocytes % 9.4 Eosinophils % 5.2 H Basophils % 4.3 H Nucleated RBC % 0 Platelet Estimate Adequate Platelet Comment Large platelets Anisocytosis 2+ Sodium 145 Potassium 3.4 L Chloride 109 H Carbon Dioxide 27 Anion Gap 9 BUN 5 L Creatinine 1.1 Creat Clearance w eGFR 52.58 POC Glucometer 105 Random Glucose 103 Calcium 7.9 L Total Bilirubin 0.3 AST 34 ALT 18 Alkaline Phosphatase 176 H Total Protein 6.0 L Albumin 1.9 L Random Vancomycin 10/31/18 10/31/18 11/01/18 17:02 21:15 06:15 WBC RBC Hgb Hct MCV MCH MCHC RDW Plt Count MPV Absolute Neuts (auto) Neutrophils % Lymphocytes % Monocytes % Eosinophils % Basophils % Nucleated RBC % Platelet Estimate Platelet Comment Anisocytosis Sodium Potassium Chloride Carbon Dioxide Anion Gap BUN Creatinine Creat Clearance w eGFR POC Glucometer 101 99 Random Glucose Calcium Total Bilirubin AST ALT Alkaline Phosphatase Total Protein Albumin Random Vancomycin 12.7 L 11/01/18 11/01/18 11/01/18 06:15 06:15 06:32 WBC 11.4 H RBC 3.48 L Hgb 8.6 L Hct 29.3 L MCV 84.3 MCH 24.8 L MCHC 29.5 L RDW 26.0 H Plt Count 353 D MPV 8.8 Absolute Neuts (auto) 7.5 Neutrophils % 65.5 Lymphocytes % 17.7 Monocytes % 8.2 Eosinophils % 7.4 H Basophils % 1.2 Nucleated RBC % 0 Platelet Estimate Platelet Comment Anisocytosis Sodium 142 Potassium 3.5 Chloride 107 Carbon Dioxide 24 Anion Gap 11 BUN 6 L Creatinine 0.9 Creat Clearance w eGFR > 60 POC Glucometer 84 Random Glucose 74 Calcium 7.8 L Total Bilirubin 0.3 AST 35 ALT 16 Alkaline Phosphatase 180 H Total Protein 6.0 L Albumin 1.9 L Random Vancomycin Problem List - Problems (1) Bacteremia due to methicillin resistant Staphylococcus aureus Code(s): R78.81 - BACTEREMIA (2) Anemia Code(s): D64.9 - ANEMIA, UNSPECIFIED (3) Bipolar 1 disorder Code(s): F31.9 - BIPOLAR DISORDER, UNSPECIFIED (4) Chronic respiratory failure Code(s): J96.10 - CHRONIC RESPIRATORY FAILURE, UNSP W HYPOXIA OR HYPERCAPNIA (5) Constipation Code(s): K59.00 - CONSTIPATION, UNSPECIFIED (6) Diabetes Code(s): E11.9 - TYPE 2 DIABETES MELLITUS WITHOUT COMPLICATIONS (7) Hypothyroid Code(s): E03.9 - HYPOTHYROIDISM, UNSPECIFIED Qualifiers: Hypothyroidism type: unspecified Qualified Code(s): E03.9 - Hypothyroidism , unspecified (8) Insomnia disorder Code(s): G47.00 - INSOMNIA, UNSPECIFIED (9) Knee pain Code(s): M25.569 - PAIN IN UNSPECIFIED KNEE Qualifiers: Chronicity: acute Laterality: left Qualified Code(s): M25.562 - Pain in left knee (10) Lethargy Code(s): R53.83 - OTHER FATIGUE (11) Tracheostomy in place Code(s): Z93.0 - TRACHEOSTOMY STATUS (12) Anxiety Code(s): F41.9 - ANXIETY DISORDER, UNSPECIFIED (13) Asthma Code(s): J45.909 - UNSPECIFIED ASTHMA, UNCOMPLICATED (14) COPD (chronic obstructive pulmonary disease) Code(s): J44.9 - CHRONIC OBSTRUCTIVE PULMONARY DISEASE, UNSPECIFIED Qualifiers: COPD type: unspecified COPD Qualified Code(s): J44.9 - Chronic obstructive pulmonary disease, unspecified (15) Chronic pain disorder Code(s): G89.4 - CHRONIC PAIN SYNDROME (16) Depression with anxiety Code(s): F41.8 - OTHER SPECIFIED ANXIETY DISORDERS (17) Diabetes mellitus Code(s): E11.9 - TYPE 2 DIABETES MELLITUS WITHOUT COMPLICATIONS Qualifiers: Diabetes mellitus type: type 2 (18) GERD (gastroesophageal reflux disease) Code(s): K21.9 - GASTRO-ESOPHAGEAL REFLUX DISEASE WITHOUT ESOPHAGITIS (19) HTN (hypertension) Code(s): I10 - ESSENTIAL (PRIMARY) HYPERTENSION Qualifiers: (20) Hyperlipidemia Code(s): E78.5 - HYPERLIPIDEMIA, UNSPECIFIED Qualifiers: (21) Neuropathy Code(s): G62.9 - POLYNEUROPATHY, UNSPECIFIED (22) Paroxysmal atrial fibrillation Code(s): I48.0 - PAROXYSMAL ATRIAL FIBRILLATION Assessment/Plan ABX per ID Trach collar O2 Follow cultures Aspiration precautions BD TX PRN No need for Systemic steroids VTE prophylaxis Dr Castaneda Problem List - Problems (1) Bacteremia due to methicillin resistant Staphylococcus aureus Code(s): R78.81 - BACTEREMIA (2) Anemia Code(s): D64.9 - ANEMIA, UNSPECIFIED (3) Bipolar 1 disorder Code(s): F31.9 - BIPOLAR DISORDER, UNSPECIFIED (4) Chronic respiratory failure Code(s): J96.10 - CHRONIC RESPIRATORY FAILURE, UNSP W HYPOXIA OR HYPERCAPNIA (5) Constipation Code(s): K59.00 - CONSTIPATION, UNSPECIFIED (6) Diabetes Code(s): E11.9 - TYPE 2 DIABETES MELLITUS WITHOUT COMPLICATIONS (7) Hypothyroid Code(s): E03.9 - HYPOTHYROIDISM, UNSPECIFIED Qualifiers: Hypothyroidism type: unspecified Qualified Code(s): E03.9 - Hypothyroidism , unspecified (8) Insomnia disorder Code(s): G47.00 - INSOMNIA, UNSPECIFIED (9) Knee pain Code(s): M25.569 - PAIN IN UNSPECIFIED KNEE Qualifiers: Chronicity: acute Laterality: left Qualified Code(s): M25.562 - Pain in left knee (10) Lethargy Code(s): R53.83 - OTHER FATIGUE (11) Tracheostomy in place Code(s): Z93.0 - TRACHEOSTOMY STATUS (12) Anxiety Code(s): F41.9 - ANXIETY DISORDER, UNSPECIFIED (13) Asthma Code(s): J45.909 - UNSPECIFIED ASTHMA, UNCOMPLICATED (14) COPD (chronic obstructive pulmonary disease) Code(s): J44.9 - CHRONIC OBSTRUCTIVE PULMONARY DISEASE, UNSPECIFIED Qualifiers: COPD type: unspecified COPD Qualified Code(s): J44.9 - Chronic obstructive pulmonary disease, unspecified (15) Chronic pain disorder Code(s): G89.4 - CHRONIC PAIN SYNDROME (16) Depression with anxiety Code(s): F41.8 - OTHER SPECIFIED ANXIETY DISORDERS (17) Diabetes mellitus Code(s): E11.9 - TYPE 2 DIABETES MELLITUS WITHOUT COMPLICATIONS Qualifiers: Diabetes mellitus type: type 2 (18) GERD (gastroesophageal reflux disease) Code(s): K21.9 - GASTRO-ESOPHAGEAL REFLUX DISEASE WITHOUT ESOPHAGITIS (19) HTN (hypertension) Code(s): I10 - ESSENTIAL (PRIMARY) HYPERTENSION Qualifiers: (20) Hyperlipidemia Code(s): E78.5 - HYPERLIPIDEMIA, UNSPECIFIED Qualifiers: (21) Neuropathy Code(s): G62.9 - POLYNEUROPATHY, UNSPECIFIED (22) Paroxysmal atrial fibrillation Code(s): I48.0 - PAROXYSMAL ATRIAL FIBRILLATION
--- NOTE | 2018-11-01 11:17 | PN ---
Progress Note, Physician Chief Complaint: Sepsis History of Present Illness: Alert but confused Vanco trough 12 Seen by ID, pulmonary afebrile - Current Medication List Current Medications: Active Medications Acetaminophen (Tylenol -) 650 mg PO Q6H PRN PRN Reason: FEVER Albuterol Sulfate (Ventolin Hfa Inhaler -) 2 puff IH Q4H PRN PRN Reason: SHORT OF BREATH/WHEEZING Alprazolam (Xanax -) 0.25 mg PO Q8H PRN PRN Reason: ANXIETY Last Admin: 10/30/18 00:21 Dose: 0.25 mg Apixaban (Eliquis -) 5 mg PO BID [facility] Last Admin: 11/01/18 10:03 Dose: 5 mg Baclofen (Lioresal -) 20 mg PO TID [facility] Last Admin: 11/01/18 06:33 Dose: 20 mg Diltiazem HCl (Cardizem Cd -) 120 mg PO DAILY [facility] Last Admin: 11/01/18 10:03 Dose: 120 mg Doxepin HCl (Sinequan -) 25 mg PO DAILY [facility] Last Admin: 11/01/18 10:03 Dose: 25 mg Gabapentin (Neurontin -) 500 mg PO TID [facility] Last Admin: 11/01/18 06:32 Dose: 500 mg Hydromorphone HCl (Dilaudid -) 4 mg PO Q4H PRN PRN Reason: PAIN LEVEL 6-10 Last Admin: 10/31/18 22:43 Dose: 4 mg Insulin Aspart (Novolog Vial Sliding Scale -) 1 vial SQ [facility]; Protocol Last Admin: 11/01/18 06:32 Dose: Not Given Levothyroxine Sodium (Synthroid -) 50 mcg PO DAILY@0700 [facility] Last Admin: 11/01/18 06:33 Dose: 50 mcg Montelukast Sodium (Singulair -) 10 mg PO [facility] Last Admin: 10/31/18 21:52 Dose: 10 mg Nystatin (Nystop Powder -) 1 applic TP DAILY [facility] Last Admin: 11/01/18 10:04 Dose: 1 applic Ranitidine HCl (Zantac -) 300 mg PO [facility] Last Admin: 10/31/18 21:52 Dose: 300 mg Rosuvastatin Calcium (Crestor -) 10 mg PO [facility] Last Admin: 10/31/18 21:53 Dose: 10 mg Topiramate (Topamax -) 100 mg PO DAILY [facility] Last Admin: 11/01/18 10:03 Dose: 100 mg Venlafaxine HCl (Effexor Xr -) 75 mg PO DAILY [facility] Last Admin: 11/01/18 10:03 Dose: 75 mg Zolpidem Tartrate (Ambien -) 10 mg PO HS PRN PRN Reason: INSOMNIA Last Admin: 10/31/18 22:43 Dose: 10 mg - Objective Vital Signs: Vital Signs Temperature 98.9 F 11/01/18 03:00 Pulse Rate 112 H 11/01/18 03:00 Respiratory Rate 18 11/01/18 03:00 Blood Pressure 121/78 11/01/18 03:00 O2 Sat by Pulse Oximetry (%) 96 10/31/18 21:00 Constitutional: Yes: Well Nourished, No Distress, Calm Cardiovascular: Yes: Regular Rate and Rhythm Respiratory: Yes: Rhonchi (diffuse), Other (trach collar) Gastrointestinal: Yes: Normal Bowel Sounds, Soft, Abdomen, Obese Musculoskeletal: Yes: Muscle Weakness Neurological: Yes: Alert, Confusion Psychiatric: Yes: Alert Labs: CBC, BMP 11/01/18 06:15 11/01/18 06:15 Problem List - Problems (1) MDRO (multiple drug resistant organisms) resistance Assessment/Plan: -ID on board -cultures: Microbiology 10/29/18 17:00 Blood - Peripheral Venous Blood Culture - Preliminary NO GROWTH OBTAINED AFTER 96 HOURS, INCUBATION TO CONTINUE FOR 1 DAYS. 10/29/18 17:00 Blood - Peripheral Venous Blood Culture - Preliminary NO GROWTH OBTAINED AFTER 96 HOURS, INCUBATION TO CONTINUE FOR 1 DAYS. 10/29/18 17:00 Sputum - Endotracheal Suction W/O Vent Gram Stain - Final 10/29/18 17:00 Sputum - Endotracheal Suction W/O Vent Sputum Culture - Final Pseudomonas Aeruginosa 10/29/18 17:00 Urine - Urine Clean Catch Urine Culture - Final Contaminated: Please Repeat -was on Vanco -IV abx as per ID Code(s): Z16.35 - RESISTANCE TO MULTIPLE ANTIMICROBIAL DRUGS (2) Bacteremia due to methicillin resistant Staphylococcus aureus Code(s): R78.81 - BACTEREMIA (3) Change in mental state Assessment/Plan: -2/2 to metabolic encephalopathy -IV abx -ID consult cultures reviewed Code(s): R41.82 - ALTERED MENTAL STATUS, UNSPECIFIED (4) COPD exacerbation Code(s): J44.1 - CHRONIC OBSTRUCTIVE PULMONARY DISEASE W (ACUTE) EXACERBATION (5) Diabetes Assessment/Plan: -BGM AC HS -Diabetic low sodium diet -Insulin sliding scale -endocrinology Code(s): E11.9 - TYPE 2 DIABETES MELLITUS WITHOUT COMPLICATIONS (6) Anemia Assessment/Plan: -chronic multifactorial -JUDY in the past -repeat iron profile -On Ferrous sulfate bid Code(s): D64.9 - ANEMIA, UNSPECIFIED Assessment/Plan see problem list
--- NOTE | 2018-11-01 14:34 | PN ---
Progress Note, Physician History of Present Illness: Awake but confused Seated in bed Aferile vancomycin trough 12 - Current Medication List Current Medications: Active Medications Acetaminophen (Tylenol -) 650 mg PO Q6H PRN PRN Reason: FEVER Albuterol Sulfate (Ventolin Hfa Inhaler -) 2 puff IH Q4H PRN PRN Reason: SHORT OF BREATH/WHEEZING Alprazolam (Xanax -) 0.25 mg PO Q8H PRN PRN Reason: ANXIETY Last Admin: 10/30/18 00:21 Dose: 0.25 mg Apixaban (Eliquis -) 5 mg PO BID [facility] Last Admin: 11/01/18 10:03 Dose: 5 mg Baclofen (Lioresal -) 20 mg PO TID [facility] Last Admin: 11/01/18 14:06 Dose: Not Given Diltiazem HCl (Cardizem Cd -) 120 mg PO DAILY [facility] Last Admin: 11/01/18 10:03 Dose: 120 mg Doxepin HCl (Sinequan -) 25 mg PO DAILY [facility] Last Admin: 11/01/18 10:03 Dose: 25 mg Gabapentin (Neurontin -) 500 mg PO TID [facility] Last Admin: 11/01/18 14:06 Dose: Not Given Hydromorphone HCl (Dilaudid -) 4 mg PO Q4H PRN PRN Reason: PAIN LEVEL 6-10 Last Admin: 10/31/18 22:43 Dose: 4 mg Insulin Aspart (Novolog Vial Sliding Scale -) 1 vial SQ [facility]; Protocol Last Admin: 11/01/18 11:35 Dose: Not Given Levothyroxine Sodium (Synthroid -) 50 mcg PO DAILY@0700 [facility] Last Admin: 11/01/18 06:33 Dose: 50 mcg Montelukast Sodium (Singulair -) 10 mg PO [facility] Last Admin: 10/31/18 21:52 Dose: 10 mg Nystatin (Nystop Powder -) 1 applic TP DAILY [facility] Last Admin: 11/01/18 10:04 Dose: 1 applic Ranitidine HCl (Zantac -) 300 mg PO [facility] Last Admin: 10/31/18 21:52 Dose: 300 mg Rosuvastatin Calcium (Crestor -) 10 mg PO [facility] Last Admin: 10/31/18 21:53 Dose: 10 mg Topiramate (Topamax -) 100 mg PO DAILY [facility] Last Admin: 11/01/18 10:03 Dose: 100 mg Venlafaxine HCl (Effexor Xr -) 75 mg PO DAILY [facility] Last Admin: 11/01/18 10:03 Dose: 75 mg Zolpidem Tartrate (Ambien -) 10 mg PO HS PRN PRN Reason: INSOMNIA Last Admin: 10/31/18 22:43 Dose: 10 mg - Objective Vital Signs: Vital Signs Temperature 98.9 F 11/01/18 03:00 Pulse Rate 112 H 11/01/18 03:00 Respiratory Rate 18 11/01/18 03:00 Blood Pressure 121/78 11/01/18 03:00 O2 Sat by Pulse Oximetry (%) 96 10/31/18 21:00 Constitutional: Yes: No Distress, Obese Cardiovascular: Yes: Regular Rate and Rhythm, S1, S2 Respiratory: Yes: CTA Bilaterally Gastrointestinal: Yes: Normal Bowel Sounds, Soft Edema: Yes Labs: CBC, BMP 11/01/18 06:15 11/01/18 06:15 Assessment/Plan Polymicrobial bacteremia Toxic metabolic encephaloapthy Resume vancomycin Repeat BC am
--- NOTE | 2018-11-01 21:15 | CONSULT ---
Consult - text type - Consultation Consultation Note: NEUROLOGY CONSULTATION is greatly appreciated: Please see my consultation of 10/22/18. This 52 you RH woman with h/o HTN, DM, COPD. Bipolar, hypothyroidism, ASHD and paroxysmal AFb. 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 Chronic respiratory failure, with permanent trache. Known to me with chronic migraine headaches and severe, chronic leg pains due to Restless Limbs syndrome (RLS). Maintained on: Albuterol; Apixaban; Baclofen 20 mg PO TID; Levothyroxine; Rosuvastatin; Venlafaxine 75; Famotidine; Hydromorphone HCl 4 mg; Myrbetriq; Montelukast; Doxepin 25 mg; Linzess; Pantoprazole; Topiramate 100; Trintellix; Gabapentin 500 mg PO Q8H; Insulin; Ondansetron; [ Zolpidem; Fluconazole; Alprazolam 0.25 mg PO Q8H; Diltiazem; Now readmitted with UTI and 2 prior blood cultures growing MRSA. on Vancomicin. Vanco Pre-dose level was 44.9 ug% today. PAO2=62.9. EXAM: Cushingoid. s/p trache. RR=20. Long, well-healed thoracic laminectomy scar (s). NEURO: Lethargic but easily arousable. Ox3 but confused and distracted. Speech fluent CN II-XII: normal Motor: No drift. Moves arms well with good strength Legs 2/5 with brisk KJ's and probable Babinskis. Near-constant, asynchronous, rhythmic, writhing, mov't of both feet and all toes Coord: No FTN dystaxia Sensory: Reduced vibration both distal legs. IMP: 1. Mild OMS- Probably on the basis of Toxic-metabolic encephalopathy 2. Paraplegia. Probably multifactorial including steroids, disuse atrophy and diabetes but may well have begun as Thoracic Myelopathy due spinal cord tumor. 3. Migraine headaches. 4. Severe Restless Limbs Syndrome (RLS). SUGGEST: Continue hydromorphone 4 mg q 4 hrs PRN pain. In the future, I would begin low-doses of pramipexole to reduce narcotics. Check B12, TSH, Fe++, TIBC, Ferritin Continue topiramate (100 mg), diltiazem, and doxepin vs migraines. reduce baclofen to 10 mg q 8 hrs and D/C all antihistamines. Bedside PT MRI of thoracic spine to r/o recurrent tumor. Thank you very much, Everton Mclean MD
[2018-11-01] MEDS: ZOLPIDEM TARTRATE 5 MG TABLET PO PRN (21:48)
[2018-11-01] MEDS: RANITIDINE HCL 150 MG TABLET (FP) PO SCH (21:48)
[2018-11-01] MEDS: MONTELUKAST NA 10 MG TABLET PO SCH (21:49)
[2018-11-01] MEDS: ROSUVASTATIN CA 10 MG TABLET (FP) PO SCH (21:49)
[2018-11-01] MEDS: PRAMIPEXOLE DIHYDROCHLORIDE 0.125 MG TABLET PO SCH (21:49)
[2018-11-02] MEDS ORDERED: PT OWN MED DRAWER 7, Y5N ONE ×4 (05:55→20:08)
[2018-11-02] MEDS: PRAMIPEXOLE DIHYDROCHLORIDE 0.125 MG TABLET PO SCH ×3 (06:01→22:17)
[2018-11-02] MEDS: BACLOFEN 10 MG TABLET (FP) PO SCH ×3 (06:01→22:17)
[2018-11-02] MEDS: INSULIN SLIDING SCALE (NOVOLOG) 1 VIAL SQ SCH ×4 (06:04→22:20)
[2018-11-02] MEDS: LEVOTHYROXINE NA 50 MCG TABLET (FP) PO SCH (07:00)
[2018-11-02 07:37] LABS: BASO % 0.7 % (0-2.0); HEMATOCRIT 29.3 % (32.4-45.2); HEMOGLOBIN 8.9 GM/dL (10.7-15.3); LYMPH % 18.2 % (8-40); MCH 25.6 pg (25.7-33.7); MCHC 30.4 g/dl (32.0-36.0); MEAN CELL VOLUME 84.3 fl (80-96); MEAN PLT VOLUME 8.5 fl (7.5-11.1); MONO % 9.5 % (3.8-10.2); NEUT % 62.6 % (42.8-82.8); PLATELET COUNT 368 K/MM3 (134-434); RBC 3.48 M/mm3 (3.60-5.2); WHITE BLOOD COUNT 9.7 K/mm3 (4.0-10.0)
[2018-11-02 08:37] LABS: ALK PHOS 178 U/L (45-117); ANION GAP 10 MMOL/L (8-16); BILIRUBIN,TOTAL 0.3 mg/dL (0.2-1); BLOOD UREA NITROGEN 5 mg/dL (7-18); CALCIUM 7.7 mg/dL (8.5-10.1); CHLORIDE 105 mmol/L (98-107); CO2 28 mmol/L (21-32); GLUCOSE,RANDOM 70 mg/dL (74-106); POTASSIUM 3.3 mmol/L (3.5-5.1); SGOT/AST 35 U/L (15-37); SGPT/ALT 16 U/L (13-61); SODIUM 142 mmol/L (136-145)
--- NOTE | 2018-11-02 08:48 | PN ---
Progress Note, Physician - Current Medication List Current Medications: Active Medications Acetaminophen (Tylenol -) 650 mg PO Q6H PRN PRN Reason: FEVER Albuterol Sulfate (Ventolin Hfa Inhaler -) 2 puff IH Q4H PRN PRN Reason: SHORT OF BREATH/WHEEZING Alprazolam (Xanax -) 0.25 mg PO Q8H PRN PRN Reason: ANXIETY Last Admin: 10/30/18 00:21 Dose: 0.25 mg Apixaban (Eliquis -) 5 mg PO BID [facility] Last Admin: 11/01/18 21:48 Dose: 5 mg Baclofen (Lioresal -) 10 mg PO TID [facility] Last Admin: 11/02/18 06:01 Dose: 10 mg Doxepin HCl (Sinequan -) 25 mg PO DAILY [facility] Last Admin: 11/01/18 10:03 Dose: 25 mg Ferrous Sulfate (Feosol -) 325 mg PO BID [facility] Hydromorphone HCl (Dilaudid -) 4 mg PO Q4H PRN PRN Reason: PAIN LEVEL 6-10 Last Admin: 11/02/18 06:00 Dose: 4 mg Insulin Aspart (Novolog Vial Sliding Scale -) 1 vial SQ [facility]; Protocol Last Admin: 11/02/18 06:04 Dose: Not Given Levothyroxine Sodium (Synthroid -) 50 mcg PO DAILY@0700 [facility] Last Admin: 11/02/18 07:00 Dose: 50 mcg Montelukast Sodium (Singulair -) 10 mg PO [facility] Last Admin: 11/01/18 21:49 Dose: 10 mg Nystatin (Nystop Powder -) 1 applic TP DAILY [facility] Last Admin: 11/01/18 10:04 Dose: 1 applic Pramipexole Dihydrochloride (Mirapex -) 0.125 mg PO TID [facility] Last Admin: 11/02/18 06:01 Dose: 0.125 mg Ranitidine HCl (Zantac -) 300 mg PO [facility] Last Admin: 11/01/18 21:48 Dose: 300 mg Rosuvastatin Calcium (Crestor -) 10 mg PO [facility] Last Admin: 11/01/18 21:49 Dose: 10 mg Topiramate (Topamax -) 100 mg PO DAILY [facility] Last Admin: 11/01/18 10:03 Dose: 100 mg Venlafaxine HCl (Effexor Xr -) 75 mg PO DAILY [facility] Last Admin: 11/01/18 10:03 Dose: 75 mg Zolpidem Tartrate (Ambien -) 10 mg PO HS PRN PRN Reason: INSOMNIA Last Admin: 11/01/18 21:48 Dose: 10 mg - Objective Vital Signs: Vital Signs Temperature 99 F 11/02/18 06:00 Pulse Rate 109 H 11/02/18 06:00 Respiratory Rate 20 11/02/18 06:00 Blood Pressure 114/70 11/02/18 06:00 O2 Sat by Pulse Oximetry (%) 97 11/01/18 21:00 Cardiovascular: Yes: S1, S2 Respiratory: Yes: Rhonchi, Other (TRACH) Gastrointestinal: Yes: Normal Bowel Sounds, Soft Labs: CBC, BMP 11/02/18 06:30 11/02/18 06:30 Problem List - Problems (1) Bacteremia due to methicillin resistant Staphylococcus aureus Assessment/Plan: Admit to M/S Blood Cultures-repeated x2 Appreciate ID consult Continue Zosyn UTI- will treat for complicated UTI secondary to ESBL, and multiple organisms Urine Culture- pending Monitor CBC, BMP Monitor Vitals Code(s): R78.81 - BACTEREMIA (2) Acute and chronic respiratory failure with hypoxia Assessment/Plan: Trach Care Continue home meds Continue pain meds judiciously closely monitoring resp status Aspiration precautions DVT ppx- SCDs, Continue Eliquis Code(s): J96.21 - ACUTE AND CHRONIC RESPIRATORY FAILURE WITH HYPOXIA (3) Change in mental state Assessment/Plan: ct head neuro noted await mri pf T-spine Code(s): R41.82 - ALTERED MENTAL STATUS, UNSPECIFIED (4) Afib Assessment/Plan: -RAPID EKG INCREASE CARDIZEM CARDIO Code(s): I48.91 - UNSPECIFIED ATRIAL FIBRILLATION
--- NOTE | 2018-11-02 09:13 | PN ---
Progress Note (short form) - Note Progress Note: Sleeping in NAD on Trach collar. Easily arousable. Denies CP or SOB. No acute events overnight. Intake & Output 10/30/18 10/31/18 11/01/18 11/02/18 23:59 23:59 23:59 23:59 Intake Total 200 350 410 Balance 200 350 410 Weight 133 lb 6 oz Last Vital Signs Temp Pulse Resp BP Pulse Ox 99 F 109 H 20 114/70 97 11/02/18 06:00 11/02/18 06:00 11/02/18 06:00 11/02/18 06:00 11/01/18 21:00 Active Medications Acetaminophen (Tylenol -) 650 mg PO Q6H PRN PRN Reason: FEVER Albuterol Sulfate (Ventolin Hfa Inhaler -) 2 puff IH Q4H PRN PRN Reason: SHORT OF BREATH/WHEEZING Alprazolam (Xanax -) 0.25 mg PO Q8H PRN PRN Reason: ANXIETY Last Admin: 10/30/18 00:21 Dose: 0.25 mg Apixaban (Eliquis -) 5 mg PO BID [facility] Last Admin: 11/01/18 21:48 Dose: 5 mg Baclofen (Lioresal -) 10 mg PO TID [facility] Last Admin: 11/02/18 06:01 Dose: 10 mg Diltiazem HCl (Cardizem Cd -) 180 mg PO DAILY [facility] Doxepin HCl (Sinequan -) 25 mg PO DAILY [facility] Last Admin: 11/01/18 10:03 Dose: 25 mg Ferrous Sulfate (Feosol -) 325 mg PO BID [facility] Hydromorphone HCl (Dilaudid -) 4 mg PO Q4H PRN PRN Reason: PAIN LEVEL 6-10 Last Admin: 11/02/18 06:00 Dose: 4 mg Potassium Chloride (Potassium Chloride 10 Meq Premix Ivpb -) 10 meq in 100 mls @ 100 mls/hr IVPB Q60M [facility] Stop: 11/02/18 10:59 Insulin Aspart (Novolog Vial Sliding Scale -) 1 vial SQ [facility]; Protocol Last Admin: 11/02/18 06:04 Dose: Not Given Levothyroxine Sodium (Synthroid -) 50 mcg PO DAILY@0700 [facility] Last Admin: 11/02/18 07:00 Dose: 50 mcg Montelukast Sodium (Singulair -) 10 mg PO HS [facility] Last Admin: 11/01/18 21:49 Dose: 10 mg Nystatin (Nystop Powder -) 1 applic TP DAILY [facility] Last Admin: 11/01/18 10:04 Dose: 1 applic Pramipexole Dihydrochloride (Mirapex -) 0.125 mg PO TID [facility] Last Admin: 11/02/18 06:01 Dose: 0.125 mg Ranitidine HCl (Zantac -) 300 mg PO HS [facility] Last Admin: 11/01/18 21:48 Dose: 300 mg Rosuvastatin Calcium (Crestor -) 10 mg PO HS [facility] Last Admin: 11/01/18 21:49 Dose: 10 mg Topiramate (Topamax -) 100 mg PO DAILY [facility] Last Admin: 11/01/18 10:03 Dose: 100 mg Venlafaxine HCl (Effexor Xr -) 75 mg PO DAILY [facility] Last Admin: 11/01/18 10:03 Dose: 75 mg Zolpidem Tartrate (Ambien -) 10 mg PO HS PRN PRN Reason: INSOMNIA Last Admin: 11/01/18 21:48 Dose: 10 mg Constitutional: Yes: No Distress Eyes: Yes: Conjunctiva Clear, EOM Intact HENT: Yes: Atraumatic, Normocephalic Neck: Yes: Trachea Midline, Other (Trach intact ) Cardiovascular: Yes: Regular Rate and Rhythm Respiratory: Yes: Accessory Muscle Use, Cough, Diminished. No: Rales, Rhonchi, Stridor, Wheezes ...Clubbing: No Gastrointestinal: Yes: Normal Bowel Sounds, Soft, Abdomen, Obese Musculoskeletal: Yes: Joint Stiffness Extremities: Yes: Shortened Edema: No Peripheral Pulses WNL: Yes Integumentary: Yes: WNL Neurological: Yes: Lethargy Labs: Laboratory Results - last 24 hr 11/01/18 11/01/18 11/01/18 11:20 17:34 21:55 WBC RBC Hgb Hct MCV MCH MCHC RDW Plt Count MPV Absolute Neuts (auto) Neutrophils % Lymphocytes % Monocytes % Eosinophils % Basophils % Nucleated RBC % Sodium Potassium Chloride Carbon Dioxide Anion Gap BUN Creatinine Creat Clearance w eGFR POC Glucometer 99 85 107 Random Glucose Calcium Ferritin Total Bilirubin AST ALT Alkaline Phosphatase Total Protein Albumin Vitamin B12 TSH Free T4 1211/02/18 11/02/18 06:02 06:30 06:30 WBC 9.7 RBC 3.48 L Hgb 8.9 L Hct 29.3 L MCV 84.3 MCH 25.6 L MCHC 30.4 L RDW 26.0 H Plt Count 368 MPV 8.5 Absolute Neuts (auto) 6.1 Neutrophils % 62.6 Lymphocytes % 18.2 Monocytes % 9.5 Eosinophils % 9.0 H Basophils % 0.7 Nucleated RBC % 0 Sodium 142 Potassium 3.3 L Chloride 105 Carbon Dioxide 28 Anion Gap 10 BUN 5 L Creatinine 1.0 Creat Clearance w eGFR 58.69 POC Glucometer 96 Random Glucose 70 L Calcium 7.7 L Ferritin 39.7 Total Bilirubin 0.3 AST 35 ALT 16 Alkaline Phosphatase 178 H Total Protein 6.0 L Albumin 2.0 L Vitamin B12 1179 H TSH 1.20 Free T4 0.95 11/02/18 06:30 WBC RBC Hgb Hct MCV MCH MCHC RDW Plt Count MPV Absolute Neuts (auto) Neutrophils % Lymphocytes % Monocytes % Eosinophils % Basophils % Nucleated RBC % Sodium Potassium Chloride Carbon Dioxide Anion Gap BUN Creatinine Creat Clearance w eGFR POC Glucometer Random Glucose Calcium Ferritin Cancelled Total Bilirubin AST ALT Alkaline Phosphatase Total Protein Albumin Vitamin B12 TSH Free T4 Cancelled Problem List - Problems (1) Bacteremia due to methicillin resistant Staphylococcus aureus Code(s): R78.81 - BACTEREMIA (2) Anemia Code(s): D64.9 - ANEMIA, UNSPECIFIED (3) Bipolar 1 disorder Code(s): F31.9 - BIPOLAR DISORDER, UNSPECIFIED (4) Chronic respiratory failure Code(s): J96.10 - CHRONIC RESPIRATORY FAILURE, UNSP W HYPOXIA OR HYPERCAPNIA (5) Constipation Code(s): K59.00 - CONSTIPATION, UNSPECIFIED (6) Diabetes Code(s): E11.9 - TYPE 2 DIABETES MELLITUS WITHOUT COMPLICATIONS (7) Hypothyroid Code(s): E03.9 - HYPOTHYROIDISM, UNSPECIFIED Qualifiers: Hypothyroidism type: unspecified Qualified Code(s): E03.9 - Hypothyroidism , unspecified (8) Insomnia disorder Code(s): G47.00 - INSOMNIA, UNSPECIFIED (9) Knee pain Code(s): M25.569 - PAIN IN UNSPECIFIED KNEE Qualifiers: Chronicity: acute Laterality: left Qualified Code(s): M25.562 - Pain in left knee (10) Lethargy Code(s): R53.83 - OTHER FATIGUE (11) Tracheostomy in place Code(s): Z93.0 - TRACHEOSTOMY STATUS (12) Anxiety Code(s): F41.9 - ANXIETY DISORDER, UNSPECIFIED (13) Asthma Code(s): J45.909 - UNSPECIFIED ASTHMA, UNCOMPLICATED (14) COPD (chronic obstructive pulmonary disease) Code(s): J44.9 - CHRONIC OBSTRUCTIVE PULMONARY DISEASE, UNSPECIFIED Qualifiers: COPD type: unspecified COPD Qualified Code(s): J44.9 - Chronic obstructive pulmonary disease, unspecified (15) Chronic pain disorder Code(s): G89.4 - CHRONIC PAIN SYNDROME (16) Depression with anxiety Code(s): F41.8 - OTHER SPECIFIED ANXIETY DISORDERS (17) Diabetes mellitus Code(s): E11.9 - TYPE 2 DIABETES MELLITUS WITHOUT COMPLICATIONS Qualifiers: Diabetes mellitus type: type 2 (18) GERD (gastroesophageal reflux disease) Code(s): K21.9 - GASTRO-ESOPHAGEAL REFLUX DISEASE WITHOUT ESOPHAGITIS (19) HTN (hypertension) Code(s): I10 - ESSENTIAL (PRIMARY) HYPERTENSION Qualifiers: (20) Hyperlipidemia Code(s): E78.5 - HYPERLIPIDEMIA, UNSPECIFIED Qualifiers: (21) Neuropathy Code(s): G62.9 - POLYNEUROPATHY, UNSPECIFIED (22) Paroxysmal atrial fibrillation Code(s): I48.0 - PAROXYSMAL ATRIAL FIBRILLATION Assessment/Plan ABX per ID Trach collar O2 Aspiration precautions BD TX PRN No need for Systemic steroids VTE prophylaxis Dr Castaneda Problem List - Problems (1) Bacteremia due to methicillin resistant Staphylococcus aureus Code(s): R78.81 - BACTEREMIA (2) Anemia Code(s): D64.9 - ANEMIA, UNSPECIFIED (3) Bipolar 1 disorder Code(s): F31.9 - BIPOLAR DISORDER, UNSPECIFIED (4) Chronic respiratory failure Code(s): J96.10 - CHRONIC RESPIRATORY FAILURE, UNSP W HYPOXIA OR HYPERCAPNIA (5) Constipation Code(s): K59.00 - CONSTIPATION, UNSPECIFIED (6) Diabetes Code(s): E11.9 - TYPE 2 DIABETES MELLITUS WITHOUT COMPLICATIONS (7) Hypothyroid Code(s): E03.9 - HYPOTHYROIDISM, UNSPECIFIED Qualifiers: Hypothyroidism type: unspecified Qualified Code(s): E03.9 - Hypothyroidism , unspecified (8) Insomnia disorder Code(s): G47.00 - INSOMNIA, UNSPECIFIED (9) Knee pain Code(s): M25.569 - PAIN IN UNSPECIFIED KNEE Qualifiers: Chronicity: acute Laterality: left Qualified Code(s): M25.562 - Pain in left knee (10) Lethargy Code(s): R53.83 - OTHER FATIGUE (11) Tracheostomy in place Code(s): Z93.0 - TRACHEOSTOMY STATUS (12) Anxiety Code(s): F41.9 - ANXIETY DISORDER, UNSPECIFIED (13) Asthma Code(s): J45.909 - UNSPECIFIED ASTHMA, UNCOMPLICATED (14) COPD (chronic obstructive pulmonary disease) Code(s): J44.9 - CHRONIC OBSTRUCTIVE PULMONARY DISEASE, UNSPECIFIED Qualifiers: COPD type: unspecified COPD Qualified Code(s): J44.9 - Chronic obstructive pulmonary disease, unspecified (15) Chronic pain disorder Code(s): G89.4 - CHRONIC PAIN SYNDROME (16) Depression with anxiety Code(s): F41.8 - OTHER SPECIFIED ANXIETY DISORDERS (17) Diabetes mellitus Code(s): E11.9 - TYPE 2 DIABETES MELLITUS WITHOUT COMPLICATIONS Qualifiers: Diabetes mellitus type: type 2 (18) GERD (gastroesophageal reflux disease) Code(s): K21.9 - GASTRO-ESOPHAGEAL REFLUX DISEASE WITHOUT ESOPHAGITIS (19) HTN (hypertension) Code(s): I10 - ESSENTIAL (PRIMARY) HYPERTENSION Qualifiers: (20) Hyperlipidemia Code(s): E78.5 - HYPERLIPIDEMIA, UNSPECIFIED Qualifiers: (21) Neuropathy Code(s): G62.9 - POLYNEUROPATHY, UNSPECIFIED (22) Paroxysmal atrial fibrillation Code(s): I48.0 - PAROXYSMAL ATRIAL FIBRILLATION
--- NOTE | 2018-11-02 10:16 | CON.CARD ---
Consult Consult Specialty:: Cardiology Referred by:: Dr. Capps Reason for Consultation:: Tachycardia - History of Present Illness Chief Complaint: sob History of Present Illness: 52 year old woman with pmh HTN, DMII, HLD, COPD chronic hypoxic/hypercapneic resp failure s/p trach, Pafib previously not on AC due to GI bleed but has been on eliquis recently admitted with sepsis with blood cultures + for MRSA, sob, pt noted to be tachycardic. Pt seen and examined today in nad. drowsy but arousable, answers questions then falls back to sleep. denies palpitations, chest pain, current sob. - History Source History Provided By: Patient, Medical Record Limitations to Obtaining History: Poor Historian - Past Medical History Cardio/Vascular: Yes: AFIB (Paroxysmal), HTN, Hyperlipdemia Pulmonary: Yes: Asthma, COPD, O2 Dependent, Previously Intubated Gastrointestinal: Yes: GI Bleed Renal/: Yes: Cancer (Uterine), Other ([place] in the past) Infectious Disease: Yes: C-Diff (june 2014), Other (Osteomyelitis of thoracic spine) Psych: Yes: Anxiety, Bipolar, Depression Musculoskeletal: Yes: Chronic low back pain, Other (multiple vertebral fractures ) Endocrine: Yes: Diabetes Mellitus, Hypothyroidism Additional Medical History: Frequent c/o abdominal pain-extensive w/u in the past negative. Presumed adhesions from prior surgeries. - Past Surgical History Past Surgical History: Yes: Appendectomy, Colectomy (By description, right colon resection with anastamosis noted on colonoscopy 2013), Hysterectomy (ADE/ BSO), Stent - Alcohol/Substance Use Hx Alcohol Use: No - Smoking History Smoking history: Former smoker Have you smoked in the past 12 months: No Aproximately how many cigarettes per day: 3 If you are a former smoker, when did you quit?: 1997 - Social History Usual Living Arrangement: Custodial 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) History of Recent Travel: No Home Medications - Allergies Allergies/Adverse Reactions: Allergies Allergy/AdvReac Type Severity Reaction Status Date / Time oxycodone [Oxycodone] Allergy Severe Nausea Verified 10/18/18 14:35 oxycodone HCl [From Percocet] Allergy Severe Nausea Verified 10/18/18 14:35 aspirin Allergy Mild Verified 10/18/18 14:35 blueberry [Blueberry] Allergy Mild Swelling Verified 10/18/18 14:35 fentanyl Allergy Mild Vomiting Verified 10/18/18 14:35 ibuprofen Allergy Swelling Verified 10/18/18 14:35 aspartame AdvReac Mild Itching Verified 10/18/18 14:35 - Home Medications Home Medications: Ambulatory Orders Albuterol Sulfate Inhaler - [Ventolin HFA Inhaler -] 2 puff IH Q4H PRN #0 inhaler 11/29/16 Acetaminophen [Tylenol .Regular Strength -] 650 mg PO Q6H PRN #0 tablet Apixaban [Eliquis -] 5 mg PO BID tablet 04/29/17 Baclofen 20 mg PO TID 07/09/18 Levocetirizine Dihydrochloride 5 mg PO HS 07/09/18 Levothyroxine [Synthroid -] 50 mcg PO DAILY 07/09/18 Rosuvastatin Calcium [Crestor] 10 mg PO DAILY 07/09/18 Venlafaxine HCl ER [Effexor Xr -] 75 mg PO DAILY 07/09/18 Famotidine 40 mg PO BID 08/07/18 Hydromorphone HCl 4 mg PO Q4H 08/07/18 Mirabegron [Myrbetriq] 50 mg PO DAILY 08/07/18 Montelukast Na [Singulair -] 10 mg PO HS 08/07/18 Doxepin HCl [Sinequan -] 25 mg PO DAILY #30 capsule 08/15/18 Linaclotide [Linzess] 145 mcg PO DAILY #30 cap 08/15/18 Pantoprazole Sodium [Protonix -] 40 mg PO DAILY #30 tablet.ec 08/15/18 Topiramate [Topamax -] 100 mg PO DAILY #30 tablet 08/15/18 Vortioxetine Hydrobromide [Trintellix] 20 mg PO DAILY #30 tablet 08/15/18 Gabapentin [Neurontin -] 500 mg PO Q8H #21 capsule 08/30/18 Insulin (Novolog) [Novolog -] 0 units SQ [facility] 08/30/18 Ondansetron [Zofran -] 8 mg PO TID 08/30/18 Zolpidem Tartrate 10 mg PO HS MDD 1 09/04/18 Gabapentin [Neurontin -] 500 mg PO TID #90 capsule 09/08/18 Ondansetron [Zofran *Odt*] 8 mg PO TID #90 tab.rapdis 09/09/18 Fluconazole [Diflucan -] 200 mg PO DAILY #7 tablet 09/18/18 Alprazolam [Xanax] 0.25 mg PO Q8H PRN tablet MDD 3 10/23/18 Diltiazem Cd [Cardizem Cd -] 120 mg PO DAILY #30 cap.cd.24h 10/23/18 Gabapentin [Neurontin -] 500 mg PO TID #60 capsule 10/23/18 Acetaminophen [Tylenol] 650 mg PO TID #21 tablet 10/27/18 Azithromycin 250 mg PO ONCE #4 tablet 10/27/18 Family Disease History - Family Disease History Family Disease History: Diabetes: Mother (Alive: heart surgery), Heart Disease: Mother, [place]: Father (: leukemia), Other: Brother (2,Healthy), Sister (1, Healthy) Review of Systems - Review of Systems Constitutional: reports: Lethargy, Malaise, Weakness Cardiovascular: reports: Shortness of Breath Respiratory: reports: SOB Vital Signs: Vital Signs Temperature 99 F 11/02/18 06:00 Pulse Rate 109 H 11/02/18 06:00 Respiratory Rate 20 11/02/18 06:00 Blood Pressure 114/70 11/02/18 06:00 O2 Sat by Pulse Oximetry (%) 97 11/01/18 21:00 Constitutional: Yes: No Distress, Calm Eyes: Yes: Conjunctiva Clear, EOM Intact Neck: Yes: Other (trach) Respiratory: Yes: Regular, Diminished, Other (trach collar). No: Wheezes Gastrointestinal: Yes: Normal Bowel Sounds, Soft Cardiovascular: Yes: Tachycardia. No: Regular Rate and Rhythm, Bradycardia, Pulse Irregular, Gallop, Rub, Varicosities JVD: No Carotid Bruit: No PMI: Non-Displaced Heart Sounds: Yes: S1, S2. No: Split S2, S3, S4, Clicks, Gallop, Rub, Bruit Murmur: No: Systolic Murmur, Diastolic Murmur Extremities: Yes: WNL Edema: No Peripheral Pulses WNL: Yes Neurological: Yes: Oriented, Lethargy Psychiatric: Yes: Oriented - Other Data Labs, Other Data: CBC, BMP 11/02/18 06:30 11/02/18 06:30 ekg-sinus tach Echo: Report Reviewed Imaging - Results Chest X-ray: Report Reviewed, Image Reviewed EKG: Report Reviewed, Image Reviewed Other: Report Reviewed, Image Reviewed Assessment/Plan 52 year old woman with pmh HTN, DMII, HLD, COPD chronic hypoxic/hypercapneic resp failure s/p trach, Pafib previously not on AC due to GI bleed but has been on eliquis recently admitted with sepsis with blood cultures + for MRSA, sob, pt noted to be tachycardic. Pt seen and examined today in nad. drowsy but arousable, answers questions then falls back to sleep. denies palpitations, chest pain, current sob. Tachycardia -sinus tach in the setting of sepsis and chronic respiratory failure -she does have a history of Pafib but is not in afib on exam currently and not on presenting ekg -would not medically treat sinus tach specifically -if develops afib with RVR would increase diltiazem as long as BP tolerates, cont current diltiazem dose for now -echo 09/2018 showed normal LV systolic function, mild valvular abnl, no sig change from prior echos - stress test 2016 no ischemia Afib-reported pafib -on eliquis -on diltiazem -currently in sinus rhythm No additional cardiac work up needed at this time. please call with any additional questions.
[2018-11-02] MEDS ORDERED: POTASSIUM CHLORIDE TABS 10 MEQ TABLET.ER (FP) PO ONE (11:00)
[2018-11-02] MEDS: KCL 10 MEQ IVPB 10 MEQ/100 ML INFUS.BAG IVPB SCH ×2 (11:11→13:43)
[2018-11-02] MEDS: DOXEPIN HCL 25 MG CAPSULE PO SCH (11:12)
[2018-11-02] MEDS: TOPIRAMATE 100 MG TABLET PO SCH (11:12)
[2018-11-02] MEDS: VENLAFAXINE HCL 75 MG E.R. CAPSULES (FP) PO SCH (11:12)
[2018-11-02] MEDS: APIXABAN 5 MG TABLET PO SCH ×2 (11:13→22:16)
[2018-11-02] MEDS: NYSTATIN POWDER 100,000 UNITS/GM - 15 GM TOPICAL POWDER TP SCH (11:13)
[2018-11-02] MEDS: FERROUS SO4 325 MG TABLET (FP) PO SCH ×2 (11:16→22:16)
[2018-11-02] MEDS ORDERED: INSULIN (NOVOLOG) ASPART 100 UNITS/ML 10ML VIAL ONE (12:21)
--- NOTE | 2018-11-02 12:55 | EKG ---
Test Reason : Blood Pressure : / mmHG Vent. Rate : 111 BPM Atrial Rate : 111 BPM P-R Int : 142 ms QRS Dur : 084 ms QT Int : 330 ms P-R-T Axes : 025 007 033 degrees QTc Int : 448 ms SINUS TACHYCARDIA OTHERWISE NORMAL ECG WHEN COMPARED WITH ECG OF 29-OCT-2018 16:41, NO SIGNIFICANT CHANGE WAS FOUND Confirmed by Ilir Hernandes ([id number]) on 11/02/2018 12:55:29 PM Referred By: SABINE WHEELER Confirmed By:Ilir Hernandes
[2018-11-02] MEDS: ROSUVASTATIN CA 10 MG TABLET (FP) PO SCH (22:16)
[2018-11-02] MEDS: MONTELUKAST NA 10 MG TABLET PO SCH (22:17)
[2018-11-02] MEDS: RANITIDINE HCL 150 MG TABLET (FP) PO SCH (22:17)
[2018-11-03] MEDS: ZOLPIDEM TARTRATE 5 MG TABLET PO PRN (01:00)
[2018-11-03] MEDS: BACLOFEN 10 MG TABLET (FP) PO SCH ×3 (06:48→21:49)
[2018-11-03] MEDS: PRAMIPEXOLE DIHYDROCHLORIDE 0.125 MG TABLET PO SCH ×2 (06:48→15:26)
[2018-11-03] MEDS: LEVOTHYROXINE NA 50 MCG TABLET (FP) PO SCH (06:48)
[2018-11-03] MEDS: INSULIN SLIDING SCALE (NOVOLOG) 1 VIAL SQ SCH ×4 (06:59→21:50)
[2018-11-03 07:37] LABS: BASO % 0.4 % (0-2.0); EOS % 8.6 % (0-4.5); HEMATOCRIT 29.1 % (32.4-45.2); HEMOGLOBIN 8.7 GM/dL (10.7-15.3); LYMPH % 18.9 % (8-40); MCH 25.5 pg (25.7-33.7); MCHC 29.9 g/dl (32.0-36.0); MEAN CELL VOLUME 85.2 fl (80-96); MEAN PLT VOLUME 8.6 fl (7.5-11.1); MONO % 10.4 % (3.8-10.2); NEUT % 61.7 % (42.8-82.8); PLATELET COUNT 353 K/MM3 (134-434); RBC 3.42 M/mm3 (3.60-5.2); RDW 26.1 % (11.6-15.6); WHITE BLOOD COUNT 9.5 K/mm3 (4.0-10.0)
[2018-11-03 08:06] LABS: SERUM IRON SATURATION 26 % (15-55); TOTAL IRON BINDING CAPACITY 144 ug/dL (250-450); UIBC 106 ug/dL (131-425)
[2018-11-03 08:22] LABS: ALK PHOS 186 U/L (45-117); ANION GAP 11 MMOL/L (8-16); BILIRUBIN,TOTAL 0.4 mg/dL (0.2-1); BLOOD UREA NITROGEN 5 mg/dL (7-18); CALCIUM 7.8 mg/dL (8.5-10.1); CHLORIDE 102 mmol/L (98-107); CO2 25 mmol/L (21-32); CREATININE 0.9 mg/dL (0.55-1.3); GLUCOSE,RANDOM 67 mg/dL (74-106); POTASSIUM 3.7 mmol/L (3.5-5.1); SGOT/AST 50 U/L (15-37); SGPT/ALT 18 U/L (13-61); SODIUM 138 mmol/L (136-145)
--- NOTE | 2018-11-03 09:15 | PN ---
Progress Note, Physician - Current Medication List Current Medications: Active Medications Acetaminophen (Tylenol -) 650 mg PO Q6H PRN PRN Reason: FEVER Albuterol Sulfate (Ventolin Hfa Inhaler -) 2 puff IH Q4H PRN PRN Reason: SHORT OF BREATH/WHEEZING Alprazolam (Xanax -) 0.25 mg PO Q8H PRN PRN Reason: ANXIETY Last Admin: 10/30/18 00:21 Dose: 0.25 mg Apixaban (Eliquis -) 5 mg PO BID [facility] Last Admin: 11/02/18 22:16 Dose: 5 mg Baclofen (Lioresal -) 10 mg PO TID [facility] Last Admin: 11/03/18 06:48 Dose: 10 mg Diltiazem HCl (Cardizem Cd -) 180 mg PO DAILY [facility] Last Admin: 11/02/18 11:11 Dose: 180 mg Doxepin HCl (Sinequan -) 25 mg PO DAILY [facility] Last Admin: 11/02/18 11:12 Dose: 25 mg Ferrous Sulfate (Feosol -) 325 mg PO BID [facility] Last Admin: 11/02/18 22:16 Dose: 325 mg Hydromorphone HCl (Dilaudid -) 4 mg PO Q4H PRN PRN Reason: PAIN LEVEL 6-10 Last Admin: 11/02/18 22:53 Dose: 4 mg Insulin Aspart (Novolog Vial Sliding Scale -) 1 vial SQ [facility]; Protocol Last Admin: 11/03/18 06:59 Dose: Not Given Levothyroxine Sodium (Synthroid -) 50 mcg PO DAILY@0700 [facility] Last Admin: 11/03/18 06:48 Dose: 50 mcg Montelukast Sodium (Singulair -) 10 mg PO [facility] Last Admin: 11/02/18 22:17 Dose: 10 mg Nystatin (Nystop Powder -) 1 applic TP DAILY [facility] Last Admin: 11/02/18 11:13 Dose: 1 applic Pramipexole Dihydrochloride (Mirapex -) 0.125 mg PO TID [facility] Last Admin: 11/03/18 06:48 Dose: 0.125 mg Ranitidine HCl (Zantac -) 300 mg PO [facility] Last Admin: 11/02/18 22:17 Dose: 300 mg Rosuvastatin Calcium (Crestor -) 10 mg PO [facility] Last Admin: 11/02/18 22:16 Dose: 10 mg Topiramate (Topamax -) 100 mg PO DAILY [facility] Last Admin: 11/02/18 11:12 Dose: 100 mg Venlafaxine HCl (Effexor Xr -) 75 mg PO DAILY [facility] Last Admin: 11/02/18 11:12 Dose: 75 mg Zolpidem Tartrate (Ambien -) 10 mg PO HS PRN PRN Reason: INSOMNIA Last Admin: 11/03/18 01:00 Dose: 10 mg - Objective Vital Signs: Vital Signs Temperature 98.9 F 11/03/18 09:00 Pulse Rate 102 H 11/03/18 09:00 Respiratory Rate 22 H 11/03/18 09:00 Blood Pressure 112/72 11/03/18 09:00 O2 Sat by Pulse Oximetry (%) 98 11/02/18 09:00 Cardiovascular: Yes: S1, S2 Respiratory: Yes: Regular, CTA Bilaterally Gastrointestinal: Yes: Normal Bowel Sounds, Soft Labs: CBC, BMP 11/03/18 06:30 11/03/18 06:30 Problem List - Problems (1) Bacteremia due to methicillin resistant Staphylococcus aureus Assessment/Plan: Admit to M/S Blood Cultures-repeated x2 Appreciate ID consult Continue Zosyn UTI- will treat for complicated UTI secondary to ESBL, and multiple organisms Urine Culture- pending Monitor CBC, BMP Monitor Vitals Code(s): R78.81 - BACTEREMIA (2) Acute and chronic respiratory failure with hypoxia Assessment/Plan: Trach Care Continue home meds Continue pain meds judiciously closely monitoring resp status Aspiration precautions DVT ppx- SCDs, Continue Eliquis Code(s): J96.21 - ACUTE AND CHRONIC RESPIRATORY FAILURE WITH HYPOXIA (3) Change in mental state Assessment/Plan: ct head---Mri head neuro noted await mri pf T-spine Code(s): R41.82 - ALTERED MENTAL STATUS, UNSPECIFIED (4) Afib Assessment/Plan: -RAPID EKG INCREASE CARDIZEM CARDIO Code(s): I48.91 - UNSPECIFIED ATRIAL FIBRILLATION
[2018-11-03] MEDS: FERROUS SO4 325 MG TABLET (FP) PO SCH ×2 (10:04→21:50)
[2018-11-03] MEDS: APIXABAN 5 MG TABLET PO SCH ×2 (10:04→21:50)
[2018-11-03] MEDS: VENLAFAXINE HCL 75 MG E.R. CAPSULES (FP) PO SCH (10:05)
[2018-11-03] MEDS: DOXEPIN HCL 25 MG CAPSULE PO SCH ×2 (10:06→21:49)
[2018-11-03] MEDS: ALPRAZolam 0.25 MG TABLET PO PRN (10:06)
[2018-11-03] MEDS: TOPIRAMATE 100 MG TABLET PO SCH (10:06)
[2018-11-03] MEDS: NYSTATIN POWDER 100,000 UNITS/GM - 15 GM TOPICAL POWDER TP SCH ×2 (10:08→21:48)
--- NOTE | 2018-11-03 10:57 | PN ---
Progress Note, Physician History of Present Illness: Awake but confused Seated in bed [place]fer[place] - Current Medication List Current Medications: Active Medications Acetaminophen (Tylenol -) 650 mg PO Q6H PRN PRN Reason: FEVER Albuterol Sulfate (Ventolin Hfa Inhaler -) 2 puff IH Q4H PRN PRN Reason: SHORT OF BREATH/WHEEZING Alprazolam (Xanax -) 0.25 mg PO Q8H PRN PRN Reason: ANXIETY Last Admin: 11/03/18 10:06 Dose: 0.25 mg Apixaban (Eliquis -) 5 mg PO BID [facility] Last Admin: 11/03/18 10:04 Dose: 5 mg Baclofen (Lioresal -) 10 mg PO TID [facility] Last Admin: 11/03/18 06:48 Dose: 10 mg Diltiazem HCl (Cardizem Cd -) 180 mg PO DAILY [facility] Last Admin: 11/03/18 10:04 Dose: 180 mg Doxepin HCl (Sinequan -) 25 mg PO DAILY [facility] Last Admin: 11/03/18 10:06 Dose: 25 mg Ferrous Sulfate (Feosol -) 325 mg PO BID [facility] Last Admin: 11/03/18 10:04 Dose: 325 mg Hydromorphone HCl (Dilaudid -) 4 mg PO Q4H PRN PRN Reason: PAIN LEVEL 6-10 Last Admin: 11/03/18 10:04 Dose: 4 mg Insulin Aspart (Novolog Vial Sliding Scale -) [address] [facility]; Protocol Last Admin: 11/03/18 06:59 Dose: Not Given Levothyroxine Sodium (Synthroid -) 50 mcg PO DAILY@0700 [facility] Last Admin: 11/03/18 06:48 Dose: 50 mcg Montelukast Sodium (Singulair -) 10 mg PO [facility] Last Admin: 11/02/18 22:17 Dose: 10 mg Nystatin (Nystop Powder -) 1 applic TP DAILY [facility] Last Admin: 11/03/18 10:08 Dose: 1 applic Pramipexole Dihydrochloride (Mirapex -) 0.125 mg PO TID [facility] Last Admin: 11/03/18 06:48 Dose: 0.125 mg Ranitidine HCl (Zantac -) 300 mg PO [facility] Last Admin: 11/02/18 22:17 Dose: 300 mg Rosuvastatin Calcium (Crestor -) 10 mg PO HS [facility] Last Admin: 11/02/18 22:16 Dose: 10 mg Topiramate (Topamax -) 100 mg PO DAILY [facility] Last Admin: 11/03/18 10:06 Dose: 100 mg Venlafaxine HCl (Effexor Xr -) 75 mg PO DAILY [facility] Last Admin: 11/03/18 10:05 Dose: 75 mg Zolpidem Tartrate (Ambien -) 10 mg PO HS PRN PRN Reason: INSOMNIA Last Admin: 11/03/18 01:00 Dose: 10 mg - Objective Vital Signs: Vital Signs Temperature 98.9 F 11/03/18 09:00 Pulse Rate 102 H 11/03/18 09:00 Respiratory Rate 22 H 11/03/18 09:00 Blood Pressure 112/72 11/03/18 09:00 O2 Sat by Pulse Oximetry (%) 98 11/02/18 09:00 Constitutional: Yes: No Distress Eyes: Yes: Conjunctiva Clear Cardiovascular: Yes: Regular Rate and Rhythm, S1, S2 Respiratory: Yes: Diminished Gastrointestinal: Yes: Normal Bowel Sounds, Soft, Abdomen, Obese. No: Tenderness Edema: No Integumentary: Yes: Rash, Other (+ perineal rash) Labs: CBC, BMP 11/03/18 06:30 11/03/18 06:30 Assessment/Plan Polymicrobial bacteremia Toxic metabolic encephalopathy + Sputum c/s Pseudomonas likely colonizer Continue vancomycin Repeat BC pending
--- NOTE | 2018-11-03 12:25 | PN ---
Progress Note (short form) - Note Progress Note: PULMONARY Saturating on trach collar. No fevers recorded. Vital Signs Period Temp Pulse Resp BP Sys/Dan Pulse Ox Last 24 Hr 98.8 F-99 F 100-113 20-22 105-112/62-76 Gen: breathing nonlabored Heart: RRR Lung: decreased breath sounds at the bases Abd: soft, nontender Ext: no edema CBC, BMP 11/03/18 06:30 11/03/18 06:30 Active Medications Acetaminophen (Tylenol -) 650 mg PO Q6H PRN PRN Reason: FEVER Albuterol Sulfate (Ventolin Hfa Inhaler -) 2 puff IH Q4H PRN PRN Reason: SHORT OF BREATH/WHEEZING Alprazolam (Xanax -) 0.25 mg PO Q8H PRN PRN Reason: ANXIETY Last Admin: 11/03/18 10:06 Dose: 0.25 mg Apixaban (Eliquis -) 5 mg PO BID [facility] Last Admin: 11/03/18 10:04 Dose: 5 mg Baclofen (Lioresal -) 10 mg PO TID [facility] Last Admin: 11/03/18 06:48 Dose: 10 mg Diltiazem HCl (Cardizem Cd -) 180 mg PO DAILY [facility] Last Admin: 11/03/18 10:04 Dose: 180 mg Doxepin HCl (Sinequan -) 25 mg PO DAILY [facility] Last Admin: 11/03/18 10:06 Dose: 25 mg Ferrous Sulfate (Feosol -) 325 mg PO BID [facility] Last Admin: 11/03/18 10:04 Dose: 325 mg Hydromorphone HCl (Dilaudid -) 4 mg PO Q4H PRN PRN Reason: PAIN LEVEL 6-10 Last Admin: 11/03/18 10:04 Dose: 4 mg Insulin Aspart (Novolog Vial Sliding Scale -) 1 vial SQ ACHS [facility]; Protocol Last Admin: 11/03/18 11:36 Dose: Not Given Levothyroxine Sodium (Synthroid -) 50 mcg PO DAILY@0700 [facility] Last Admin: 11/03/18 06:48 Dose: 50 mcg Montelukast Sodium (Singulair -) 10 mg PO HS [facility] Last Admin: 11/02/18 22:17 Dose: 10 mg Nystatin (Nystop Powder -) 1 applic TP DAILY [facility] Last Admin: 11/03/18 10:08 Dose: 1 applic Pramipexole Dihydrochloride (Mirapex -) 0.125 mg PO TID [facility] Last Admin: 11/03/18 06:48 Dose: 0.125 mg Ranitidine HCl (Zantac -) 300 mg PO HS [facility] Last Admin: 11/02/18 22:17 Dose: 300 mg Rosuvastatin Calcium (Crestor -) 10 mg PO HS [facility] Last Admin: 11/02/18 22:16 Dose: 10 mg Topiramate (Topamax -) 100 mg PO DAILY [facility] Last Admin: 11/03/18 10:06 Dose: 100 mg Venlafaxine HCl (Effexor Xr -) 75 mg PO DAILY [facility] Last Admin: 11/03/18 10:05 Dose: 75 mg Zolpidem Tartrate (Ambien -) 10 mg PO HS PRN PRN Reason: INSOMNIA Last Admin: 11/03/18 01:00 Dose: 10 mg A/P Bacteremia Acute on Chronic Hypoxic Respiratory Failure Asthma/COPD Altered Mental Status Atrial Fibrillation Hypercholesterolemia - continue antibiotics per ID - inhaled bronchodilators - O2 to keep SpO2 >90% - rate control - continue anticoagulation
--- NOTE | 2018-11-03 20:41 | PN ---
Progress Note (short form) - Note Progress Note: NEUROLOGY FOLLOW-UP: Events reviewed and discussed with staff. They find her to be more lethargic and withdrawn today. Those staff members who know her longitudinally note that confusion began the last hospitalization and that prior to that the patient was more alert, better- oriented and participated in her own care. B12, TSH normal Attempted to have MRI scans of the brain and Thoracic spine but patient apparently became combative. Patient denies headaches today. Slept better last night. EXAM: Oriented x 3 but confused. Perseverative speech. CN's II-XII: Normal Motor: normal arm strength but diffusely tender to touch. Paraplegic. Brisk KJ's. Triple flexion withdrawal. Near-constant writhing toe and foot movements c/w RLS. Sensory: Cannot distinguish vibration in the legs. IMP: Mild OMS Paraplegia (R/O recurrent spinal tumor). Confusion (? Toxic-metabolic encephalopathy) Migraine Headaches Severe RLS. SUGGEST: Decrease dilaudid to 2 mg q 4 hrs PRN D/C Zolpidem and change Doxepin to 25 mg HS Increase pramipexole to 0.25 mg q 8 hrs (Last dose HS). Would hold MRI scans of brain and T-spine until Pt is more cooperative Check Fe++, TIBC Thank you very much, Everton Mclean MD
[2018-11-03] MEDS ORDERED: PT OWN MED DRAWER 7, Y5N ONE (21:41)
[2018-11-03] MEDS: MINERAL OIL/PETROLAT/WATER TOPICAL CREAM 454 GM JAR TP PRN (21:47)
[2018-11-03] MEDS: ZINC OXIDE 20% TOPICAL OINTMENT 30 GM TUBE TP SCH (21:48)
[2018-11-03] MEDS: PRAMIPEXOLE DIHYDROCHLORIDE 0.25 MG TABLET PO SCH (21:49)
[2018-11-03] MEDS: HYDROmorphone HCL 2 MG TABLET PO PRN (21:49)
[2018-11-03] MEDS: MONTELUKAST NA 10 MG TABLET PO SCH (21:49)
[2018-11-03] MEDS: ROSUVASTATIN CA 10 MG TABLET (FP) PO SCH (21:50)
[2018-11-03] MEDS: RANITIDINE HCL 150 MG TABLET (FP) PO SCH (21:50)
[2018-11-04] MEDS: HYDROmorphone HCL 2 MG TABLET PO PRN ×4 (04:13→21:49)
[2018-11-04] MEDS: ALPRAZolam 0.25 MG TABLET PO PRN ×2 (04:13→21:52)
[2018-11-04] MEDS: ACETAMINOPHEN 325 MG TABLET (FP) PO PRN (05:15)
[2018-11-04] MEDS: PRAMIPEXOLE DIHYDROCHLORIDE 0.25 MG TABLET PO SCH ×3 (05:15→22:00)
[2018-11-04] MEDS: BACLOFEN 10 MG TABLET (FP) PO SCH ×3 (05:15→21:50)
[2018-11-04] MEDS: LEVOTHYROXINE NA 50 MCG TABLET (FP) PO SCH (06:14)
[2018-11-04] MEDS: INSULIN SLIDING SCALE (NOVOLOG) 1 VIAL SQ SCH ×4 (06:15→21:51)
--- NOTE | 2018-11-04 08:22 | PN ---
Progress Note, Physician History of Present Illness: LOOKS BETTER FEELS BETTER ALERT AND ORIENTED - Current Medication List Current Medications: Active Medications Acetaminophen (Tylenol -) 650 mg PO Q6H PRN PRN Reason: FEVER Last Admin: 11/04/18 05:15 Dose: 650 mg Albuterol Sulfate (Ventolin Hfa Inhaler -) 2 puff IH Q4H PRN PRN Reason: SHORT OF BREATH/WHEEZING Alprazolam (Xanax -) 0.25 mg PO Q8H PRN PRN Reason: ANXIETY Last Admin: 11/04/18 04:13 Dose: 0.25 mg Apixaban (Eliquis -) 5 mg PO BID [facility] Last Admin: 11/03/18 21:50 Dose: 5 mg Baclofen (Lioresal -) 10 mg PO TID [facility] Last Admin: 11/04/18 05:15 Dose: 10 mg Diltiazem HCl (Cardizem Cd -) 180 mg PO DAILY [facility] Last Admin: 11/03/18 10:04 Dose: 180 mg Doxepin HCl (Sinequan -) 25 mg PO [facility] Last Admin: 11/03/18 21:49 Dose: 25 mg Ferrous Sulfate (Feosol -) 325 mg PO BID [facility] Last Admin: 11/03/18 21:50 Dose: 325 mg Hydromorphone HCl (Dilaudid -) 2 mg PO Q4H PRN PRN Reason: PAIN LEVEL 4 - 6 Last Admin: 11/04/18 04:13 Dose: 2 mg Insulin Aspart (Novolog Vial Sliding Scale -) 1 vial SQ ACHS [facility]; Protocol Last Admin: 11/04/18 06:15 Dose: Not Given Levothyroxine Sodium (Synthroid -) 50 mcg PO DAILY@0700 [facility] Last Admin: 11/04/18 06:14 Dose: 50 mcg Montelukast Sodium (Singulair -) 10 mg PO [facility] Last Admin: 11/03/18 21:49 Dose: 10 mg Multi-Ingredient Lotion (Eucerin (Large Jar) -) 1 applic TP DAILY PRN PRN Reason: DRY SKIN Last Admin: 11/03/18 21:47 Dose: 1 applic Multi-Ingredient Ointment (Zinc Oxide) 1 applic TP BID [facility] Last Admin: 11/03/18 21:48 Dose: 1 applic Nystatin (Nystop Powder -) 1 applic TP DAILY [facility] Last Admin: 11/03/18 10:08 Dose: 1 applic Nystatin (Nystop Powder -) 1 applic TP BID [facility] Last Admin: 11/03/18 21:48 Dose: 1 applic Pramipexole Dihydrochloride (Mirapex -) 0.25 mg PO TID [facility] Last Admin: 11/04/18 05:15 Dose: 0.25 mg Ranitidine HCl (Zantac -) 300 mg PO [facility] Last Admin: 11/03/18 21:50 Dose: 300 mg Rosuvastatin Calcium (Crestor -) 10 mg PO HS [facility] Last Admin: 11/03/18 21:50 Dose: 10 mg Topiramate (Topamax -) 100 mg PO DAILY [facility] Last Admin: 11/03/18 10:06 Dose: 100 mg Venlafaxine HCl (Effexor Xr -) 75 mg PO DAILY [facility] Last Admin: 11/03/18 10:05 Dose: 75 mg - Objective Vital Signs: Vital Signs Temperature 98.2 F 11/04/18 06:46 Pulse Rate 100 H 11/04/18 06:46 Respiratory Rate 20 11/04/18 06:46 Blood Pressure 116/62 11/04/18 06:46 O2 Sat by Pulse Oximetry (%) 96 11/03/18 20:30 Cardiovascular: Yes: Regular Rate and Rhythm Respiratory: Yes: Diminished, Rhonchi, Other (TACH) Gastrointestinal: Yes: Normal Bowel Sounds, Soft Labs: CBC, BMP 11/03/18 06:30 11/03/18 06:30 Problem List - Problems (1) Bacteremia due to methicillin resistant Staphylococcus aureus Assessment/Plan: Appreciate ID consult Continue VANCO PER id Microbiology 11/02/18 06:15 Blood - Peripheral Venous Blood Culture - Preliminary NO GROWTH OBTAINED AFTER 48 HOURS, INCUBATION TO CONTINUE FOR 3 DAYS. 11/02/18 06:30 Blood - Peripheral Venous Blood Culture - Preliminary NO GROWTH OBTAINED AFTER 48 HOURS, INCUBATION TO CONTINUE FOR 3 DAYS. 10/29/18 17:00 Blood - Peripheral Venous Blood Culture - Final NO GROWTH AFTER 5 DAYS INCUBATION 10/29/18 17:00 Blood - Peripheral Venous Blood Culture - Final NO GROWTH AFTER 5 DAYS INCUBATION 10/29/18 17:00 Sputum - Endotracheal Suction W/O Vent Gram Stain - Final 10/29/18 17:00 Sputum - Endotracheal Suction W/O Vent Sputum Culture - Final Pseudomonas Aeruginosa 10/29/18 17:00 Urine - Urine Clean Catch Urine Culture - Final Contaminated: Please Repeat Monitor Vitals Code(s): R78.81 - BACTEREMIA (2) Acute and chronic respiratory failure with hypoxia Assessment/Plan: Trach Care Continue home meds Continue pain meds judiciously closely monitoring resp status Aspiration precautions DVT ppx- SCDs, Continue Eliquis Code(s): J96.21 - ACUTE AND CHRONIC RESPIRATORY FAILURE WITH HYPOXIA (3) Change in mental state Assessment/Plan: iMPROVED TODAY ct head---Mri head neuro noted await mri pf T-spine Code(s): R41.82 - ALTERED MENTAL STATUS, UNSPECIFIED (4) Afib Assessment/Plan: -RAPID EKG INCREASE CARDIZEM CARDIO Code(s): I48.91 - UNSPECIFIED ATRIAL FIBRILLATION
[2018-11-04] MEDS: FERROUS SO4 325 MG TABLET (FP) PO SCH ×2 (10:54→21:50)
[2018-11-04] MEDS: APIXABAN 5 MG TABLET PO SCH ×2 (10:54→21:50)
[2018-11-04] MEDS: VENLAFAXINE HCL 75 MG E.R. CAPSULES (FP) PO SCH (10:55)
[2018-11-04] MEDS: TOPIRAMATE 100 MG TABLET PO SCH (10:55)
[2018-11-04] MEDS: ALBUTEROL SO4 2.5/IPRATROPIUM 0.5 INH SOL 3 ML VIAL.NEB. NEB SCH ×3 (11:30→20:49)
--- NOTE | 2018-11-04 11:46 | PN ---
Progress Note, Physician History of Present Illness: Awake, calmer today No complaints offered Supine in bed Aferile - Current Medication List Current Medications: Active Medications Acetaminophen (Tylenol -) 650 mg PO Q6H PRN PRN Reason: FEVER Last Admin: 11/04/18 05:15 Dose: 650 mg Albuterol/Ipratropium (Duoneb -) 1 amp NEB RQID [facility] Alprazolam (Xanax -) 0.25 mg PO Q8H PRN PRN Reason: ANXIETY Last Admin: 11/04/18 04:13 Dose: 0.25 mg Apixaban (Eliquis -) 5 mg PO BID [facility] Last Admin: 11/04/18 10:54 Dose: 5 mg Baclofen (Lioresal -) 10 mg PO TID [facility] Last Admin: 11/04/18 05:15 Dose: 10 mg Diltiazem HCl (Cardizem Cd -) 180 mg PO DAILY [facility] Last Admin: 11/04/18 10:54 Dose: 180 mg Doxepin HCl (Sinequan -) 25 mg PO [facility] Last Admin: 11/03/18 21:49 Dose: 25 mg Ferrous Sulfate (Feosol -) 325 mg PO BID [facility] Last Admin: 11/04/18 10:54 Dose: 325 mg Hydromorphone HCl (Dilaudid -) 2 mg PO Q4H PRN PRN Reason: PAIN LEVEL 4 - 6 Last Admin: 11/04/18 10:56 Dose: 2 mg Insulin Aspart (Novolog Vial Sliding Scale -) 1 vial SQ [facility]; Protocol Last Admin: 11/04/18 06:15 Dose: Not Given Levothyroxine Sodium (Synthroid -) 50 mcg PO DAILY@0700 [facility] Last Admin: 11/04/18 06:14 Dose: 50 mcg Montelukast Sodium (Singulair -) 10 mg PO [facility] Last Admin: 11/03/18 21:49 Dose: 10 mg Multi-Ingredient Lotion (Eucerin (Large Jar) -) 1 applic TP DAILY PRN PRN Reason: DRY SKIN Last Admin: 11/03/18 21:47 Dose: 1 applic Multi-Ingredient Ointment (Zinc Oxide) 1 applic TP BID [facility] Last Admin: 11/03/18 21:48 Dose: 1 applic Nystatin (Nystop Powder -) 1 applic TP DAILY [facility] Last Admin: 11/03/18 10:08 Dose: 1 applic Nystatin (Nystop Powder -) 1 applic TP BID [facility] Last Admin: 11/03/18 21:48 Dose: 1 applic Pramipexole Dihydrochloride (Mirapex -) 0.25 mg PO TID [facility] Last Admin: 11/04/18 05:15 Dose: 0.25 mg Ranitidine HCl (Zantac -) 300 mg PO HS [facility] Last Admin: 11/03/18 21:50 Dose: 300 mg Rosuvastatin Calcium (Crestor -) 10 mg PO HS [facility] Last Admin: 11/03/18 21:50 Dose: 10 mg Topiramate (Topamax -) 100 mg PO DAILY [facility] Last Admin: 11/04/18 10:55 Dose: 100 mg Venlafaxine HCl (Effexor Xr -) 75 mg PO DAILY [facility] Last Admin: 11/04/18 10:55 Dose: 75 mg - Objective Vital Signs: Vital Signs Temperature 98.2 F 11/04/18 06:46 Pulse Rate 100 H 11/04/18 06:46 Respiratory Rate 20 11/04/18 06:46 Blood Pressure 116/62 11/04/18 06:46 O2 Sat by Pulse Oximetry (%) 96 11/03/18 20:30 Constitutional: Yes: No Distress Eyes: Yes: Conjunctiva Clear Cardiovascular: Yes: Regular Rate and Rhythm, S1, S2 Respiratory: Yes: Diminished Gastrointestinal: Yes: Normal Bowel Sounds, Soft. No: Tenderness Edema: No Labs: CBC, BMP 11/03/18 06:30 11/03/18 06:30 Assessment/Plan Polymicrobial bacteremia Toxic metabolic encephalopathy + Sputum c/s Pseudomonas likely colonizer Continue vancomycin Repeat BC no growth
[2018-11-04 12:58] VITALS: BMI 26.9
[2018-11-04] MEDS ORDERED: VANCOMYCIN 1 GM PREMIX - 1 GM/200 ML BAG IVPB SCH (13:00)
--- NOTE | 2018-11-04 13:38 | PN ---
Progress Note (short form) - Note Progress Note: PULMONARY Some dyspnea and wheezing today. No fevers recorded. Vital Signs Period Temp Pulse Resp BP Sys/Dan Pulse Ox Last 24 Hr 97.8 F-98.3 F 61-100 20-22 97-131/62-87 96 Gen: breathing nonlabored Heart: RRR Lung: decreased breath sounds at the bases Abd: soft, nontender Ext: no edema CBC, BMP 11/03/18 06:30 11/03/18 06:30 Active Medications Acetaminophen (Tylenol -) 650 mg PO Q6H PRN PRN Reason: FEVER Last Admin: 11/04/18 05:15 Dose: 650 mg Albuterol/Ipratropium (Duoneb -) 1 amp NEB RQID [facility] Last Admin: 11/04/18 11:30 Dose: 1 amp Alprazolam (Xanax -) 0.25 mg PO Q8H PRN PRN Reason: ANXIETY Last Admin: 11/04/18 04:13 Dose: 0.25 mg Apixaban (Eliquis -) 5 mg PO BID [facility] Last Admin: 11/04/18 10:54 Dose: 5 mg Baclofen (Lioresal -) 10 mg PO TID [facility] Last Admin: 11/04/18 05:15 Dose: 10 mg Diltiazem HCl (Cardizem Cd -) 180 mg PO DAILY [facility] Last Admin: 11/04/18 10:54 Dose: 180 mg Doxepin HCl (Sinequan -) 25 mg PO HS [facility] Last Admin: 11/03/18 21:49 Dose: 25 mg Ferrous Sulfate (Feosol -) 325 mg PO BID [facility] Last Admin: 11/04/18 10:54 Dose: 325 mg Hydromorphone HCl (Dilaudid -) 2 mg PO Q4H PRN PRN Reason: PAIN LEVEL 4 - 6 Last Admin: 11/04/18 10:56 Dose: 2 mg Vancomycin HCl (Vancomycin (Pre-Docked)) 1,000 mg in 250 mls @ 166.667 mls/hr IVPB DAILY@1330 [facility]; Protocol Insulin Aspart (Novolog Vial Sliding Scale -) 1 vial SQ ACHS [facility]; Protocol Last Admin: 11/04/18 06:15 Dose: Not Given Levothyroxine Sodium (Synthroid -) 50 mcg PO DAILY@0700 [facility] Last Admin: 11/04/18 06:14 Dose: 50 mcg Montelukast Sodium (Singulair -) 10 mg PO HS [facility] Last Admin: 11/03/18 21:49 Dose: 10 mg Multi-Ingredient Lotion (Eucerin (Large Jar) -) 1 applic TP DAILY PRN PRN Reason: DRY SKIN Last Admin: 11/03/18 21:47 Dose: 1 applic Multi-Ingredient Ointment (Zinc Oxide) 1 applic TP BID [facility] Last Admin: 11/03/18 21:48 Dose: 1 applic Nystatin (Nystop Powder -) 1 applic TP DAILY [facility] Last Admin: 11/03/18 10:08 Dose: 1 applic Nystatin (Nystop Powder -) 1 applic TP BID [facility] Last Admin: 11/03/18 21:48 Dose: 1 applic Pramipexole Dihydrochloride (Mirapex -) 0.25 mg PO TID [facility] Last Admin: 11/04/18 05:15 Dose: 0.25 mg Ranitidine HCl (Zantac -) 300 mg PO [facility] Last Admin: 11/03/18 21:50 Dose: 300 mg Rosuvastatin Calcium (Crestor -) 10 mg PO HS [facility] Last Admin: 11/03/18 21:50 Dose: 10 mg Topiramate (Topamax -) 100 mg PO DAILY [facility] Last Admin: 11/04/18 10:55 Dose: 100 mg Venlafaxine HCl (Effexor Xr -) 75 mg PO DAILY [facility] Last Admin: 11/04/18 10:55 Dose: 75 mg A/P Bacteremia Acute on Chronic Hypoxic Respiratory Failure Asthma/COPD Altered Mental Status Atrial Fibrillation Hypercholesterolemia - continue antibiotics per ID - inhaled bronchodilators - O2 to keep SpO2 >90% - rate control - continue anticoagulation
[2018-11-04] MEDS: MINERAL OIL/PETROLAT/WATER TOPICAL CREAM 454 GM JAR TP PRN (13:50)
[2018-11-04] MEDS: ZINC OXIDE 20% TOPICAL OINTMENT 30 GM TUBE TP SCH ×2 (13:50→22:01)
[2018-11-04] MEDS: NYSTATIN POWDER 100,000 UNITS/GM - 15 GM TOPICAL POWDER TP SCH ×3 (13:50→22:01)
[2018-11-04] MEDS: VANCOMYCIN 1 GRAM (PRE-DOCKED) 1,000 MG/250 ML BAG IVPB SCH (13:56)
[2018-11-04] MEDS ORDERED: INSULIN (NOVOLOG) ASPART 100 UNITS/ML 10ML VIAL ONE (14:29)
[2018-11-04] MEDS ORDERED: PT OWN MED DRAWER 7, Y5N ONE ×3 (14:32→21:58)
[2018-11-04] MEDS: MONTELUKAST NA 10 MG TABLET PO SCH (21:50)
[2018-11-04] MEDS: RANITIDINE HCL 150 MG TABLET (FP) PO SCH (21:50)
[2018-11-04] MEDS: ROSUVASTATIN CA 10 MG TABLET (FP) PO SCH (21:51)
[2018-11-04] MEDS: DOXEPIN HCL 25 MG CAPSULE PO SCH (22:01)
[2018-11-05] MEDS ORDERED: PT OWN MED DRAWER 7, Y5N ONE ×2 (05:51→10:39)
[2018-11-05] MEDS: INSULIN SLIDING SCALE (NOVOLOG) 1 VIAL SQ SCH ×4 (06:50→21:00)
[2018-11-05] MEDS: BACLOFEN 10 MG TABLET (FP) PO SCH ×3 (06:51→21:02)
[2018-11-05] MEDS: PRAMIPEXOLE DIHYDROCHLORIDE 0.25 MG TABLET PO SCH ×3 (06:51→21:01)
[2018-11-05] MEDS: HYDROmorphone HCL 2 MG TABLET PO PRN ×3 (06:51→18:58)
[2018-11-05] MEDS: LEVOTHYROXINE NA 50 MCG TABLET (FP) PO SCH (06:51)
[2018-11-05] MEDS: ALBUTEROL SO4 2.5/IPRATROPIUM 0.5 INH SOL 3 ML VIAL.NEB. NEB SCH ×4 (07:59→19:50)
--- NOTE | 2018-11-05 08:32 | PN ---
Progress Note, Physician History of Present Illness: LOOKS BETTER FEELS BETTER ALERT AND ORIENTED with periods of confusion - Current Medication List Current Medications: Active Medications Acetaminophen (Tylenol -) 650 mg PO Q6H PRN PRN Reason: FEVER Last Admin: 11/04/18 05:15 Dose: 650 mg Albuterol/Ipratropium (Duoneb -) 1 amp NEB RQID [facility] Last Admin: 11/05/18 07:59 Dose: 1 amp Alprazolam (Xanax -) 0.25 mg PO Q8H PRN PRN Reason: ANXIETY Last Admin: 11/04/18 21:52 Dose: 0.25 mg Apixaban (Eliquis -) 5 mg PO BID [facility] Last Admin: 11/04/18 21:50 Dose: 5 mg Baclofen (Lioresal -) 10 mg PO TID [facility] Last Admin: 11/05/18 06:51 Dose: 10 mg Diltiazem HCl (Cardizem Cd -) 180 mg PO DAILY [facility] Last Admin: 11/04/18 10:54 Dose: 180 mg Doxepin HCl (Sinequan -) 25 mg PO [facility] Last Admin: 11/04/18 22:01 Dose: 25 mg Ferrous Sulfate (Feosol -) 325 mg PO BID [facility] Last Admin: 11/04/18 21:50 Dose: 325 mg Hydromorphone HCl (Dilaudid -) 2 mg PO Q4H PRN PRN Reason: PAIN LEVEL 4 - 6 Last Admin: 11/05/18 06:51 Dose: 2 mg Vancomycin HCl (Vancomycin (Pre-Docked)) 1,000 mg in 250 mls @ 166.667 mls/hr IVPB DAILY@1330 [facility]; Protocol Last Admin: 11/04/18 13:56 Dose: 166.667 mls/hr Insulin Aspart (Novolog Vial Sliding Scale -) 1 vial SQ ACHS [facility]; Protocol Last Admin: 11/05/18 06:50 Dose: Not Given Levothyroxine Sodium (Synthroid -) 50 mcg PO DAILY@0700 [facility] Last Admin: 11/05/18 06:51 Dose: 50 mcg Montelukast Sodium (Singulair -) 10 mg PO [facility] Last Admin: 11/04/18 21:50 Dose: 10 mg Multi-Ingredient Lotion (Eucerin (Large Jar) -) 1 applic TP DAILY PRN PRN Reason: DRY SKIN Last Admin: 11/04/18 13:50 Dose: 1 applic Multi-Ingredient Ointment (Zinc Oxide) 1 applic TP BID [facility] Last Admin: 11/04/18 22:01 Dose: 1 applic Nystatin (Nystop Powder -) 1 applic TP DAILY [facility] Last Admin: 11/04/18 13:51 Dose: 1 applic Nystatin (Nystop Powder -) 1 applic TP BID [facility] Last Admin: 11/04/18 22:01 Dose: 1 applic Pramipexole Dihydrochloride (Mirapex -) 0.25 mg PO TID [facility] Last Admin: 11/05/18 06:51 Dose: 0.25 mg Ranitidine HCl (Zantac -) 300 mg PO [facility] Last Admin: 11/04/18 21:50 Dose: 300 mg Rosuvastatin Calcium (Crestor -) 10 mg PO HS [facility] Last Admin: 11/04/18 21:51 Dose: 10 mg Topiramate (Topamax -) 100 mg PO DAILY [facility] Last Admin: 11/04/18 10:55 Dose: 100 mg Venlafaxine HCl (Effexor Xr -) 75 mg PO DAILY [facility] Last Admin: 11/04/18 10:55 Dose: 75 mg - Objective Vital Signs: Vital Signs Temperature 98.6 F 11/05/18 06:57 Pulse Rate 105 H 11/05/18 06:57 Respiratory Rate 20 11/05/18 06:57 Blood Pressure 99/66 11/05/18 06:57 O2 Sat by Pulse Oximetry (%) 96 11/03/18 20:30 Cardiovascular: Yes: S1, S2 Respiratory: Yes: Rhonchi, Other (trach) Gastrointestinal: Yes: Normal Bowel Sounds, Soft Edema: No Neurological: Yes: Alert, Confusion Labs: CBC, BMP 11/03/18 06:30 11/03/18 06:30 Problem List - Problems (1) Bacteremia due to methicillin resistant Staphylococcus aureus Assessment/Plan: Appreciate ID consult Continue VANCO PER id Microbiology 11/02/18 06:15 Blood - Peripheral Venous Blood Culture - Preliminary NO GROWTH OBTAINED AFTER 48 HOURS, INCUBATION TO CONTINUE FOR 3 DAYS. 11/02/18 06:30 Blood - Peripheral Venous Blood Culture - Preliminary NO GROWTH OBTAINED AFTER 48 HOURS, INCUBATION TO CONTINUE FOR 3 DAYS. 10/29/18 17:00 Blood - Peripheral Venous Blood Culture - Final NO GROWTH AFTER 5 DAYS INCUBATION 10/29/18 17:00 Blood - Peripheral Venous Blood Culture - Final NO GROWTH AFTER 5 DAYS INCUBATION 10/29/18 17:00 Sputum - Endotracheal Suction W/O Vent Gram Stain - Final 10/29/18 17:00 Sputum - Endotracheal Suction W/O Vent Sputum Culture - Final Pseudomonas Aeruginosa 10/29/18 17:00 Urine - Urine Clean Catch Urine Culture - Final Contaminated: Please Repeat Monitor Vitals Code(s): R78.81 - BACTEREMIA (2) Acute and chronic respiratory failure with hypoxia Assessment/Plan: Trach Care Continue home meds Continue pain meds judiciously closely monitoring resp status Aspiration precautions DVT ppx- SCDs, Continue Eliquis Code(s): J96.21 - ACUTE AND CHRONIC RESPIRATORY FAILURE WITH HYPOXIA (3) Change in mental state Assessment/Plan: ct head---Mri head now neuro noted await mri pf T-spine Code(s): R41.82 - ALTERED MENTAL STATUS, UNSPECIFIED (4) Afib Assessment/Plan: -RAPID EKG INCREASE CARDIZEM CARDIO Code(s): I48.91 - UNSPECIFIED ATRIAL FIBRILLATION
[2018-11-05] MEDS: APIXABAN 5 MG TABLET PO SCH ×2 (10:44→21:01)
[2018-11-05] MEDS: FERROUS SO4 325 MG TABLET (FP) PO SCH ×2 (10:44→21:01)
[2018-11-05] MEDS: NYSTATIN POWDER 100,000 UNITS/GM - 15 GM TOPICAL POWDER TP SCH ×3 (10:45→21:03)
[2018-11-05] MEDS: TOPIRAMATE 100 MG TABLET PO SCH (10:46)
[2018-11-05] MEDS: VENLAFAXINE HCL 75 MG E.R. CAPSULES (FP) PO SCH (10:46)
[2018-11-05] MEDS: ZINC OXIDE 20% TOPICAL OINTMENT 30 GM TUBE TP SCH ×2 (10:46→21:00)
[2018-11-05] MEDS: ALPRAZolam 0.25 MG TABLET PO PRN (14:41)
[2018-11-05] MEDS: VANCOMYCIN 1 GRAM (PRE-DOCKED) 1,000 MG/250 ML BAG IVPB SCH (14:43)
--- NOTE | 2018-11-05 15:16 | PN ---
Progress Note, Physician History of Present Illness: Awake, alert No complaints offered Supine in bed [place]fer[place] - Current Medication List Current Medications: Active Medications Acetaminophen (Tylenol -) 650 mg PO Q6H PRN PRN Reason: FEVER Last Admin: 11/04/18 05:15 Dose: 650 mg Albuterol/Ipratropium (Duoneb -) 1 amp NEB RQID [facility] Last Admin: 11/05/18 11:32 Dose: 1 amp Alprazolam (Xanax -) 0.25 mg PO Q8H PRN PRN Reason: ANXIETY Last Admin: 11/05/18 14:41 Dose: 0.25 mg Apixaban (Eliquis -) 5 mg PO BID [facility] Last Admin: 11/05/18 10:44 Dose: 5 mg Baclofen (Lioresal -) 10 mg PO TID [facility] Last Admin: 11/05/18 14:42 Dose: 10 mg Diltiazem HCl (Cardizem Cd -) 180 mg PO DAILY [facility] Last Admin: 11/05/18 10:44 Dose: 180 mg Doxepin HCl (Sinequan -) 25 mg PO [facility] Last Admin: 11/04/18 22:01 Dose: 25 mg Ferrous Sulfate (Feosol -) 325 mg PO BID [facility] Last Admin: 11/05/18 10:44 Dose: 325 mg Hydromorphone HCl (Dilaudid -) 2 mg PO Q4H PRN PRN Reason: PAIN LEVEL 4 - 6 Last Admin: 11/05/18 14:40 Dose: 2 mg Vancomycin HCl (Vancomycin (Pre-Docked)) 1,000 mg in 250 mls @ 166.667 mls/hr IVPB DAILY@1330 [facility]; Protocol Last Admin: 11/05/18 14:43 Dose: 166.667 mls/hr Insulin Aspart (Novolog Vial Sliding Scale -) 1 vial SQ ACHS [facility]; Protocol Last Admin: 11/05/18 14:43 Dose: Not Given Levothyroxine Sodium (Synthroid -) 50 mcg PO DAILY@0700 [facility] Last Admin: 11/05/18 06:51 Dose: 50 mcg Montelukast Sodium (Singulair -) 10 mg PO [facility] Last Admin: 11/04/18 21:50 Dose: 10 mg Multi-Ingredient Lotion (Eucerin (Large Jar) -) 1 applic TP DAILY PRN PRN Reason: DRY SKIN Last Admin: 11/04/18 13:50 Dose: 1 applic Multi-Ingredient Ointment (Zinc Oxide) 1 applic TP BID [facility] Last Admin: 11/05/18 10:46 Dose: 1 applic Nystatin (Nystop Powder -) 1 applic TP DAILY [facility] Last Admin: 11/05/18 10:45 Dose: Not Given Nystatin (Nystop Powder -) 1 applic TP BID [facility] Last Admin: 11/05/18 10:45 Dose: 1 applic Pramipexole Dihydrochloride (Mirapex -) 0.25 mg PO TID [facility] Last Admin: 11/05/18 14:42 Dose: 0.25 mg Ranitidine HCl (Zantac -) 300 mg PO HS [facility] Last Admin: 11/04/18 21:50 Dose: 300 mg Rosuvastatin Calcium (Crestor -) 10 mg PO HS [facility] Last Admin: 11/04/18 21:51 Dose: 10 mg Topiramate (Topamax -) 100 mg PO DAILY [facility] Last Admin: 11/05/18 10:46 Dose: 100 mg Venlafaxine HCl (Effexor Xr -) 75 mg PO DAILY [facility] Last Admin: 11/05/18 10:46 Dose: 75 mg - Objective Vital Signs: Vital Signs Temperature 98.6 F 11/05/18 10:00 Pulse Rate 116 H 11/05/18 10:00 Respiratory Rate 18 11/05/18 10:00 Blood Pressure 100/70 11/05/18 10:00 O2 Sat by Pulse Oximetry (%) 98 11/05/18 09:00 Constitutional: Yes: No Distress Eyes: Yes: Conjunctiva Clear Cardiovascular: Yes: Regular Rate and Rhythm, S1, S2 Respiratory: Yes: CTA Bilaterally Gastrointestinal: Yes: Normal Bowel Sounds, Soft, Abdomen, Obese. No: Tenderness Edema: No Labs: CBC, BMP 11/03/18 06:30 11/03/18 06:30 Assessment/Plan Polymicrobial bacteremia Toxic metabolic encephalopathy + Sputum c/s Pseudomonas likely colonizer Continue vancomycin Repeat BC no growth
--- NOTE | 2018-11-05 17:07 | PN ---
Progress Note, Physician History of Present Illness: PULMONARY ALERT,COMFORTABLE,-RESP DISTRESS - Current Medication List Current Medications: Active Medications Acetaminophen (Tylenol -) 650 mg PO Q6H PRN PRN Reason: FEVER Last Admin: 11/04/18 05:15 Dose: 650 mg Albuterol/Ipratropium (Duoneb -) 1 amp NEB RQID [facility] Last Admin: 11/05/18 16:36 Dose: 1 amp Alprazolam (Xanax -) 0.25 mg PO Q8H PRN PRN Reason: ANXIETY Last Admin: 11/05/18 14:41 Dose: 0.25 mg Apixaban (Eliquis -) 5 mg PO BID [facility] Last Admin: 11/05/18 10:44 Dose: 5 mg Baclofen (Lioresal -) 10 mg PO TID [facility] Last Admin: 11/05/18 14:42 Dose: 10 mg Diltiazem HCl (Cardizem Cd -) 180 mg PO DAILY [facility] Last Admin: 11/05/18 10:44 Dose: 180 mg Doxepin HCl (Sinequan -) 25 mg PO [facility] Last Admin: 11/04/18 22:01 Dose: 25 mg Ferrous Sulfate (Feosol -) 325 mg PO BID [facility] Last Admin: 11/05/18 10:44 Dose: 325 mg Hydromorphone HCl (Dilaudid -) 2 mg PO Q4H PRN PRN Reason: PAIN LEVEL 4 - 6 Last Admin: 11/05/18 14:40 Dose: 2 mg Vancomycin HCl (Vancomycin (Pre-Docked)) 1,000 mg in 250 mls @ 166.667 mls/hr IVPB DAILY@1330 [facility]; Protocol Last Admin: 11/05/18 14:43 Dose: 166.667 mls/hr Insulin Aspart (Novolog Vial Sliding Scale -) 1 vial SQ ACHS [facility]; Protocol Last Admin: 11/05/18 14:43 Dose: Not Given Levothyroxine Sodium (Synthroid -) 50 mcg PO DAILY@0700 [facility] Last Admin: 11/05/18 06:51 Dose: 50 mcg Montelukast Sodium (Singulair -) 10 mg PO [facility] Last Admin: 11/04/18 21:50 Dose: 10 mg Multi-Ingredient Lotion (Eucerin (Large Jar) -) 1 applic TP DAILY PRN PRN Reason: DRY SKIN Last Admin: 11/04/18 13:50 Dose: 1 applic Multi-Ingredient Ointment (Zinc Oxide) 1 applic TP BID [facility] Last Admin: 11/05/18 10:46 Dose: 1 applic Nystatin (Nystop Powder -) 1 applic TP DAILY [facility] Last Admin: 11/05/18 10:45 Dose: Not Given Nystatin (Nystop Powder -) 1 applic TP BID [facility] Last Admin: 11/05/18 10:45 Dose: 1 applic Pramipexole Dihydrochloride (Mirapex -) 0.25 mg PO TID [facility] Last Admin: 11/05/18 14:42 Dose: 0.25 mg Ranitidine HCl (Zantac -) 300 mg PO HS [facility] Last Admin: 11/04/18 21:50 Dose: 300 mg Rosuvastatin Calcium (Crestor -) 10 mg PO HS [facility] Last Admin: 11/04/18 21:51 Dose: 10 mg Topiramate (Topamax -) 100 mg PO DAILY [facility] Last Admin: 11/05/18 10:46 Dose: 100 mg Venlafaxine HCl (Effexor Xr -) 75 mg PO DAILY [facility] Last Admin: 11/05/18 10:46 Dose: 75 mg - Objective Vital Signs: Vital Signs Temperature 98.6 F 11/05/18 10:00 Pulse Rate 116 H 11/05/18 10:00 Respiratory Rate 18 11/05/18 10:00 Blood Pressure 100/70 11/05/18 10:00 O2 Sat by Pulse Oximetry (%) 98 11/05/18 09:00 Constitutional: Yes: Well Nourished, Calm Eyes: Yes: WNL HENT: Yes: WNL Neck: Yes: Supple (TRACH) Cardiovascular: Yes: Pulse Irregular, S1 Respiratory: Yes: Wheezes (FEW WHEEZES) Gastrointestinal: Yes: Soft Extremities: Yes: WNL Edema: No Labs: Problem List - Problems (1) Bacteremia due to methicillin resistant Staphylococcus aureus Code(s): R78.81 - BACTEREMIA (2) Change in mental state Code(s): R41.82 - ALTERED MENTAL STATUS, UNSPECIFIED (3) Acute and chronic respiratory failure with hypoxia Code(s): J96.21 - ACUTE AND CHRONIC RESPIRATORY FAILURE WITH HYPOXIA (4) Acute on chronic respiratory failure with hypoxia and hypercapnia Code(s): J96.21 - ACUTE AND CHRONIC RESPIRATORY FAILURE WITH HYPOXIA; J96.22 - ACUTE AND CHRONIC RESPIRATORY FAILURE WITH HYPERCAPNIA (5) Acute wheezy bronchitis Code(s): J20.9 - ACUTE BRONCHITIS, UNSPECIFIED (6) Hypothyroid Code(s): E03.9 - HYPOTHYROIDISM, UNSPECIFIED Qualifiers: Hypothyroidism type: unspecified Qualified Code(s): E03.9 - Hypothyroidism , unspecified Assessment/Plan A/P Bacteremia Acute on Chronic Hypoxic Respiratory Failure Asthma/COPD Altered Mental Status improving Atrial Fibrillation Hypercholesterolemia - continue antibiotics per ID - inhaled bronchodilators - O2 to keep SpO2 >90% - rate control - continue anticoagulation DR RUFFIN
--- NOTE | 2018-11-05 19:01 | PN ---
Progress Note (short form) - Note Progress Note: NEUROLOGY FOLLOW-UP: Events reviewed and discusses with RN. Patient examined. Nurses note patient is brighter, more lucid and cooperative, noting "Bonita is back." She allowed a partial brain MRI without acute changes or CVA. 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 Patient recalls walking after the first surgery but not after the second. No c/o headache. TSH, T4, B12- WNL Exam: Long thoracic spinal scar. Cushingoid. Appears much more comfortable on Pramipexole .25 TID in spite of halving her dilaudid dose due to confusion. Ox [facility], Dec. Trump. ?Delusional, claiming she was walking today. CN: II-XII normal Motor: Arms normal strength. All LE groups <3/5 but increased tone (spastic) and brisk KJ' s. Writhing toe and foot mov'ts persist IMP: Paraplegia- apparently due to distant thoracic tumor resection and infection. Severe Migraine/RLS syndrome- better on topiramate and Pramipexole. Toxic-Metabolic Encephalopathy due to narcotics, polypharmacy, infection - improved on reduced dilaudid and baclofen. SUGGEST: Continue topiramate, doxepin (HS) and diltiazem for migraine prophylaxis Continue pramipexole 0.25 mg TID x few more days then can try to increase slowly. Would try Thoracic MRI next week after alprazolam 1 mg [employer]. Thank you very much, Everton Mclean MD
[2018-11-05] MEDS: MINERAL OIL/PETROLAT/WATER TOPICAL CREAM 454 GM JAR TP PRN (21:00)
[2018-11-05] MEDS: ROSUVASTATIN CA 10 MG TABLET (FP) PO SCH (21:01)
[2018-11-05] MEDS: RANITIDINE HCL 150 MG TABLET (FP) PO SCH (21:01)
[2018-11-05] MEDS: ACETAMINOPHEN 325 MG TABLET (FP) PO PRN (21:02)
[2018-11-05] MEDS: DOXEPIN HCL 25 MG CAPSULE PO SCH (21:02)
[2018-11-05] MEDS: MONTELUKAST NA 10 MG TABLET PO SCH (21:02)
[2018-11-06] MEDS: HYDROmorphone HCL 2 MG TABLET PO PRN ×3 (04:37→19:56)
[2018-11-06] MEDS: ALPRAZolam 0.25 MG TABLET PO PRN (04:38)
[2018-11-06] MEDS: BACLOFEN 10 MG TABLET (FP) PO SCH ×3 (04:59→23:29)
[2018-11-06] MEDS: PRAMIPEXOLE DIHYDROCHLORIDE 0.25 MG TABLET PO SCH ×3 (04:59→23:29)
[2018-11-06] MEDS: INSULIN SLIDING SCALE (NOVOLOG) 1 VIAL SQ SCH ×4 (06:22→23:30)
[2018-11-06] MEDS: LEVOTHYROXINE NA 50 MCG TABLET (FP) PO SCH (06:22)
[2018-11-06] MEDS: ALBUTEROL SO4 2.5/IPRATROPIUM 0.5 INH SOL 3 ML VIAL.NEB. NEB SCH ×4 (07:40→20:20)
--- NOTE | 2018-11-06 08:48 | PN ---
Progress Note, Physician Chief Complaint: Sepsis History of Present Illness: Alert but confused Seen by ID, pulmonary afebrile Also seen by Neurology for migraine headaches On IV vanco for polymicrobial infection - Current Medication List Current Medications: Active Medications Acetaminophen (Tylenol -) 650 mg PO Q6H PRN PRN Reason: FEVER Last Admin: 11/05/18 21:02 Dose: 650 mg Albuterol/Ipratropium (Duoneb -) 1 amp NEB RQID [facility] Last Admin: 11/06/18 07:40 Dose: 1 amp Alprazolam (Xanax -) 0.25 mg PO Q8H PRN PRN Reason: ANXIETY Last Admin: 11/06/18 04:38 Dose: 0.25 mg Apixaban (Eliquis -) 5 mg PO BID [facility] Last Admin: 11/05/18 21:01 Dose: 5 mg Baclofen (Lioresal -) 10 mg PO TID [facility] Last Admin: 11/06/18 04:59 Dose: 10 mg Diltiazem HCl (Cardizem Cd -) 180 mg PO DAILY [facility] Last Admin: 11/05/18 10:44 Dose: 180 mg Doxepin HCl (Sinequan -) 25 mg PO [facility] Last Admin: 11/05/18 21:02 Dose: 25 mg Ferrous Sulfate (Feosol -) 325 mg PO BID [facility] Last Admin: 11/05/18 21:01 Dose: 325 mg Hydromorphone HCl (Dilaudid -) 2 mg PO Q4H PRN PRN Reason: PAIN LEVEL 4 - 6 Last Admin: 11/06/18 04:37 Dose: 2 mg Vancomycin HCl (Vancomycin (Pre-Docked)) 1,000 mg in 250 mls @ 166.667 mls/hr IVPB DAILY@1330 [facility]; Protocol Last Admin: 11/05/18 14:43 Dose: 166.667 mls/hr Insulin Aspart (Novolog Vial Sliding Scale -) 1 vial SQ ACHS [facility]; Protocol Last Admin: 11/06/18 06:22 Dose: Not Given Levothyroxine Sodium (Synthroid -) 50 mcg PO DAILY@0700 [facility] Last Admin: 11/06/18 06:22 Dose: 50 mcg Montelukast Sodium (Singulair -) 10 mg PO [facility] Last Admin: 11/05/18 21:02 Dose: 10 mg Multi-Ingredient Lotion (Eucerin (Large Jar) -) 1 applic TP DAILY PRN PRN Reason: DRY SKIN Last Admin: 11/05/18 21:00 Dose: 1 applic Multi-Ingredient Ointment (Zinc Oxide) 1 applic TP BID [facility] Last Admin: 11/05/18 21:00 Dose: 1 applic Nystatin (Nystop Powder -) 1 applic TP DAILY [facility] Last Admin: 11/05/18 10:45 Dose: Not Given Nystatin (Nystop Powder -) 1 applic TP BID [facility] Last Admin: 11/05/18 21:03 Dose: 1 applic Pramipexole Dihydrochloride (Mirapex -) 0.25 mg PO TID [facility] Last Admin: 11/06/18 04:59 Dose: 0.25 mg Ranitidine HCl (Zantac -) 300 mg PO HS [facility] Last Admin: 11/05/18 21:01 Dose: 300 mg Rosuvastatin Calcium (Crestor -) 10 mg PO [facility] Last Admin: 11/05/18 21:01 Dose: 10 mg Topiramate (Topamax -) 100 mg PO DAILY [facility] Last Admin: 11/05/18 10:46 Dose: 100 mg Venlafaxine HCl (Effexor Xr -) 75 mg PO DAILY [facility] Last Admin: 11/05/18 10:46 Dose: 75 mg - Objective Vital Signs: Vital Signs Temperature 98.2 F 11/06/18 06:52 Pulse Rate 109 H 11/06/18 06:52 Respiratory Rate 20 11/06/18 06:52 Blood Pressure 90/55 L 11/06/18 06:52 O2 Sat by Pulse Oximetry (%) 99 11/05/18 21:00 Constitutional: Yes: Well Nourished, No Distress, Calm Cardiovascular: Yes: Regular Rate and Rhythm Respiratory: Yes: Rhonchi, Other (trach collar) Gastrointestinal: Yes: Normal Bowel Sounds, Soft Musculoskeletal: Yes: Muscle Weakness Extremities: Yes: WNL Edema: No Peripheral Pulses WNL: Yes Neurological: Yes: Alert, Pre-Existing Deficit Psychiatric: Yes: Alert Labs: CBC, BMP 11/03/18 06:30 11/03/18 06:30 Problem List - Problems (1) MDRO (multiple drug resistant organisms) resistance Assessment/Plan: -ID on board -cultures: Microbiology 11/02/18 06:15 Blood - Peripheral Venous Blood Culture - Preliminary NO GROWTH OBTAINED AFTER 96 HOURS, INCUBATION TO CONTINUE FOR 1 DAYS. 11/02/18 06:30 Blood - Peripheral Venous Blood Culture - Preliminary NO GROWTH OBTAINED AFTER 96 HOURS, INCUBATION TO CONTINUE FOR 1 DAYS. 10/29/18 17:00 Blood - Peripheral Venous Blood Culture - Final NO GROWTH AFTER 5 DAYS INCUBATION 10/29/18 17:00 Blood - Peripheral Venous Blood Culture - Final NO GROWTH AFTER 5 DAYS INCUBATION 10/29/18 17:00 Sputum - Endotracheal Suction W/O Vent Gram Stain - Final 10/29/18 17:00 Sputum - Endotracheal Suction W/O Vent Sputum Culture - Final Pseudomonas Aeruginosa 10/29/18 17:00 Urine - Urine Clean Catch Urine Culture - Final Contaminated: Please Repeat -On Vanco -IV abx as per ID Code(s): Z16.35 - RESISTANCE TO MULTIPLE ANTIMICROBIAL DRUGS (2) Bacteremia due to methicillin resistant Staphylococcus aureus Code(s): R78.81 - BACTEREMIA (3) Change in mental state Assessment/Plan: -2/2 to metabolic encephalopathy -IV abx -ID consult cultures reviewed Code(s): R41.82 - ALTERED MENTAL STATUS, UNSPECIFIED (4) COPD exacerbation Code(s): J44.1 - CHRONIC OBSTRUCTIVE PULMONARY DISEASE W (ACUTE) EXACERBATION (5) Diabetes Assessment/Plan: -BGM AC HS -Diabetic low sodium diet -Insulin sliding scale -endocrinology -Last A1c @10.3 -dietary non compliance outpatient Code(s): E11.9 - TYPE 2 DIABETES MELLITUS WITHOUT COMPLICATIONS (6) Anemia Assessment/Plan: -chronic multifactorial -UJDY in the past -repeat iron profile normal -B12, Thyroid profile normal -Stool OB pending -On Ferrous sulfate bid -monitor trend Code(s): D64.9 - ANEMIA, UNSPECIFIED (7) Acute metabolic encephalopathy Assessment/Plan: -Seen by neurology -CT head and MRI brain are unremarkable -Thoracic MRi pending to r/o recurrent thoracic spine mass, given her weakness and sensory loss of BLLE Code(s): G93.41 - METABOLIC ENCEPHALOPATHY Assessment/Plan see problem list
[2018-11-06] MEDS ORDERED: PT OWN MED DRAWER 7, Y5N ONE ×3 (09:10→19:51)
--- NOTE | 2018-11-06 09:28 | PN ---
Progress Note (short form) - Note Progress Note: resting comfortably no complaints Vital Signs Period Temp Pulse Resp BP Sys/Dan Pulse Ox Last 24 Hr 98 F-100 F 109-118 18-20 90-144/55-81 99 +trach cor-rrr lungs decreased bs at bases abd soft,nt ext no edema CBC, BMP 11/03/18 06:30 11/03/18 06:30 Microbiology 11/02/18 06:15 Blood - Peripheral Venous Blood Culture - Preliminary NO GROWTH OBTAINED AFTER 96 HOURS, INCUBATION TO CONTINUE FOR 1 DAYS. 11/02/18 06:30 Blood - Peripheral Venous Blood Culture - Preliminary NO GROWTH OBTAINED AFTER 96 HOURS, INCUBATION TO CONTINUE FOR 1 DAYS. 10/29/18 17:00 Blood - Peripheral Venous Blood Culture - Final NO GROWTH AFTER 5 DAYS INCUBATION 10/29/18 17:00 Blood - Peripheral Venous Blood Culture - Final NO GROWTH AFTER 5 DAYS INCUBATION 10/29/18 17:00 Sputum - Endotracheal Suction W/O Vent Gram Stain - Final 10/29/18 17:00 Sputum - Endotracheal Suction W/O Vent Sputum Culture - Final Pseudomonas Aeruginosa 10/29/18 17:00 Urine - Urine Clean Catch Urine Culture - Final Contaminated: Please Repeat a/p polymicrobial bacteremia- gram positive including MRSA- repeat blood cultures negative continue vancomycin toxic metabolic encephalopathy- improved copd chronic trach- pseudomonas colonizer anemia repeat vancomycin trough
[2018-11-06] MEDS: FERROUS SO4 325 MG TABLET (FP) PO SCH ×2 (11:31→23:31)
[2018-11-06] MEDS: APIXABAN 5 MG TABLET PO SCH ×2 (11:31→23:28)
[2018-11-06] MEDS: VENLAFAXINE HCL 75 MG E.R. CAPSULES (FP) PO SCH (11:32)
[2018-11-06] MEDS: TOPIRAMATE 100 MG TABLET PO SCH (11:33)
[2018-11-06] MEDS: NYSTATIN POWDER 100,000 UNITS/GM - 15 GM TOPICAL POWDER TP SCH ×3 (11:35→23:30)
--- NOTE | 2018-11-06 12:19 | PN ---
Progress Note, Physician History of Present Illness: pulmonary awake,alert,comfortable,-resp distress - Current Medication List Current Medications: Active Medications Acetaminophen (Tylenol -) 650 mg PO Q6H PRN PRN Reason: FEVER Last Admin: 11/05/18 21:02 Dose: 650 mg Albuterol/Ipratropium (Duoneb -) 1 amp NEB RQID [facility] B[facility]S [facility] Last Admin: 11/06/18 07:40 Dose: 1 amp Alprazolam (Xanax -) 0.25 mg PO Q8H PRN PRN Reason: ANXIETY Last Admin: 11/06/18 04:38 Dose: 0.25 mg Apixaban (Eliquis -) 5 mg PO BID [facility]S [facility] Last Admin: 11/06/18 11:31 Dose: 5 mg Baclofen (Lioresal -) 10 mg PO TID [facility]S [facility] Last Admin: 11/06/18 04:59 Dose: 10 mg Diltiazem HCl (Cardizem Cd -) 180 mg PO DAILY [facility] 234 [facility]S [facility] Last Admin: 11/06/18 11:31 Dose: 180 mg Doxepin HCl (Sinequan -) 25 mg PO [facility] Last Admin: 11/05/18 21:02 Dose: 25 mg Ferrous Sulfate (Feosol -) 325 mg PO BID [facility] 234 [facility]S [facility] Last Admin: 11/06/18 11:31 Dose: 325 mg Hydromorphone HCl (Dilaudid -) 2 mg PO Q4H PRN PRN Reason: PAIN LEVEL 4 - 6 Last Admin: 11/06/18 12:02 Dose: 2 mg Vancomycin HCl (Vancomycin (Pre-Docked)) 1,000 mg in 250 mls @ 166.667 mls/hr IVPB DAILY@1330 [facility]S [facility]; Protocol Last Admin: 11/05/18 14:43 Dose: 166.667 mls/hr Insulin Aspart (Novolog Vial Sliding Scale -) 1 vial SQ ACHS [facility] 234 [facility]S [facility]; Protocol Last Admin: 11/06/18 06:22 Dose: Not Given Levothyroxine Sodium (Synthroid -) 50 mcg PO DAILY@0700 [facility] 234 [facility]S [facility] Last Admin: 11/06/18 06:22 Dose: 50 mcg Montelukast Sodium (Singulair -) 10 mg PO [facility] Last Admin: 11/05/18 21:02 Dose: 10 mg Multi-Ingredient Lotion (Eucerin (Large Jar) -) 1 applic TP DAILY PRN PRN Reason: DRY SKIN Last Admin: 11/05/18 21:00 Dose: 1 applic Multi-Ingredient Ointment (Zinc Oxide) 1 applic TP BID [facility] 234 [facility]S [facility] Last Admin: 11/05/18 21:00 Dose: 1 applic Nystatin (Nystop Powder -) 1 applic TP DAILY [facility] 234 [facility]S [facility] Last Admin: 11/06/18 11:35 Dose: 1 applic Nystatin (Nystop Powder -) 1 applic TP BID [facility] 234 [facility]S [facility] Last Admin: 11/06/18 11:35 Dose: 1 applic Pramipexole Dihydrochloride (Mirapex -) 0.25 mg PO TID [facility] 234 B[facility]S [facility] Last Admin: 11/06/18 04:59 Dose: 0.25 mg Ranitidine HCl (Zantac -) 300 mg PO HS [facility] 234 B[facility]S [facility] Last Admin: 11/05/18 21:01 Dose: 300 mg Rosuvastatin Calcium (Crestor -) 10 mg PO HS [facility] 234 B[facility]S [facility] Last Admin: 11/05/18 21:01 Dose: 10 mg Topiramate (Topamax -) 100 mg PO DAILY [facility] 234 [facility]S [facility] Last Admin: 11/06/18 11:33 Dose: 100 mg Venlafaxine HCl (Effexor Xr -) 75 mg PO DAILY [facility] 234 BEDS [facility] Last Admin: 11/06/18 11:32 Dose: 75 mg - Objective Vital Signs: Vital Signs Temperature 98.2 F 11/06/18 06:52 Pulse Rate 109 H 11/06/18 06:52 Respiratory Rate 20 11/06/18 06:52 Blood Pressure 90/55 L 11/06/18 06:52 O2 Sat by Pulse Oximetry (%) 99 11/05/18 21:00 Constitutional: Yes: Well Nourished, Calm Eyes: Yes: WNL HENT: Yes: WNL Neck: Yes: Supple (trach) Cardiovascular: Yes: Pulse Irregular, S1, S2 Respiratory: Yes: Wheezes (few scattered wheezes) Gastrointestinal: Yes: Normal Bowel Sounds, Soft Extremities: Yes: WNL Edema: No Labs: Problem List - Problems (1) Bacteremia due to methicillin resistant Staphylococcus aureus Code(s): R78.81 - BACTEREMIA (2) Change in mental state Code(s): R41.82 - ALTERED MENTAL STATUS, UNSPECIFIED (3) Acute and chronic respiratory failure with hypoxia Code(s): J96.21 - ACUTE AND CHRONIC RESPIRATORY FAILURE WITH HYPOXIA (4) Acute on chronic respiratory failure with hypoxia and hypercapnia Code(s): J96.21 - ACUTE AND CHRONIC RESPIRATORY FAILURE WITH HYPOXIA; J96.22 - ACUTE AND CHRONIC RESPIRATORY FAILURE WITH HYPERCAPNIA (5) Acute wheezy bronchitis Code(s): J20.9 - ACUTE BRONCHITIS, UNSPECIFIED (6) Hypothyroid Code(s): E03.9 - HYPOTHYROIDISM, UNSPECIFIED Qualifiers: Hypothyroidism type: unspecified Qualified Code(s): E03.9 - Hypothyroidism , unspecified Assessment/Plan A/P Bacteremia Acute on Chronic Hypoxic Respiratory Failure Asthma/COPD Altered Mental Status improving Atrial Fibrillation Hypercholesterolemia - continue antibiotics per ID - inhaled bronchodilators - O2 to keep SpO2 >90% - rate control - continue anticoagulation - chest x-ray am DR RUFFIN
[2018-11-06] MEDS: VANCOMYCIN 1 GRAM (PRE-DOCKED) 1,000 MG/250 ML BAG IVPB SCH (14:31)
[2018-11-06] MEDS: ACETAMINOPHEN 325 MG TABLET (FP) PO PRN (14:32)
[2018-11-06] MEDS: ZINC OXIDE 20% TOPICAL OINTMENT 30 GM TUBE TP SCH ×2 (15:56→23:31)
[2018-11-06] MEDS: ROSUVASTATIN CA 10 MG TABLET (FP) PO SCH (23:28)
[2018-11-06] MEDS: RANITIDINE HCL 150 MG TABLET (FP) PO SCH (23:30)
[2018-11-06] MEDS: DOXEPIN HCL 25 MG CAPSULE PO SCH (23:30)
[2018-11-06] MEDS: MONTELUKAST NA 10 MG TABLET PO SCH (23:30)
[2018-11-07] MEDS: ALPRAZolam 0.25 MG TABLET PO PRN (01:27)
[2018-11-07] MEDS: HYDROmorphone HCL 2 MG TABLET PO PRN ×4 (02:15→21:46)
[2018-11-07] MEDS: LEVOTHYROXINE NA 50 MCG TABLET (FP) PO SCH (06:58)
[2018-11-07] MEDS: PRAMIPEXOLE DIHYDROCHLORIDE 0.25 MG TABLET PO SCH ×3 (06:58→21:41)
[2018-11-07] MEDS: BACLOFEN 10 MG TABLET (FP) PO SCH ×3 (06:58→21:41)
[2018-11-07] MEDS: INSULIN SLIDING SCALE (NOVOLOG) 1 VIAL SQ SCH ×4 (07:00→22:23)
[2018-11-07 07:40] LABS: HEMATOCRIT 31.3 % (32.4-45.2); RBC 3.71 M/mm3 (3.60-5.2); WHITE BLOOD COUNT 7.8 K/mm3 (4.0-10.0)
[2018-11-07 07:41] LABS: BASO % 0.3 % (0-2.0); EOS % 5.4 % (0-4.5); LYMPH % 12.7 % (8-40); MCH 27.1 pg (25.7-33.7); MCHC 32.1 g/dl (32.0-36.0); MEAN CELL VOLUME 84.5 fl (80-96); MEAN PLT VOLUME 9.1 fl (7.5-11.1); MONO % 7.9 % (3.8-10.2); NEUT % 73.7 % (42.8-82.8); PLATELET COUNT 306 K/MM3 (134-434); RDW 25.8 % (11.6-15.6)
[2018-11-07] MEDS: ALBUTEROL SO4 2.5/IPRATROPIUM 0.5 INH SOL 3 ML VIAL.NEB. NEB SCH ×4 (07:48→20:16)
[2018-11-07 08:06] LABS: ALBUMIN 2.1 g/dl (3.4-5.0); ALK PHOS 234 U/L (45-117); ANION GAP 8 MMOL/L (8-16); BILIRUBIN,TOTAL 0.4 mg/dL (0.2-1); BLOOD UREA NITROGEN 4 mg/dL (7-18); CALCIUM 8.5 mg/dL (8.5-10.1); CHLORIDE 98 mmol/L (98-107); CO2 31 mmol/L (21-32); GLUCOSE,RANDOM 99 mg/dL (74-106); POTASSIUM 3.6 mmol/L (3.5-5.1); SGOT/AST 92 U/L (15-37); SGPT/ALT 30 U/L (13-61); SODIUM 137 mmol/L (136-145); TOT PROT 6.4 g/dl (6.4-8.2)
[2018-11-07] MEDS ORDERED: PT OWN MED DRAWER 7, Y5N ONE ×3 (08:43→20:36)
[2018-11-07] MEDS: VENLAFAXINE HCL 75 MG E.R. CAPSULES (FP) PO SCH ×2 (08:52→10:43)
[2018-11-07] MEDS: FERROUS SO4 325 MG TABLET (FP) PO SCH ×3 (08:52→21:38)
[2018-11-07] MEDS: APIXABAN 5 MG TABLET PO SCH ×3 (08:52→21:39)
[2018-11-07] MEDS: TOPIRAMATE 100 MG TABLET PO SCH ×2 (08:52→10:44)
--- NOTE | 2018-11-07 09:38 | PN ---
Progress Note, Physician Chief Complaint: Sepsis History of Present Illness: Alert but confused Seen by ID, pulmonary afebrile Also seen by Neurology for migraine headaches On IV vanco for polymicrobial infection REFUSES THORACIC MRI DUE TO CLAUSTROPHOBIA, EVEN AFTER TRYING ATIVAN-CT MYELOGRAM ORDERED INSTEAD Mentation improved - Current Medication List Current Medications: Active Medications Acetaminophen (Tylenol -) 650 mg PO Q6H PRN PRN Reason: FEVER Last Admin: 11/05/18 21:02 Dose: 650 mg Albuterol/Ipratropium (Duoneb -) 1 amp NEB RQID [facility] Last Admin: 11/07/18 07:48 Dose: 1 amp Alprazolam (Xanax -) 0.25 mg PO Q8H PRN PRN Reason: ANXIETY Last Admin: 11/07/18 01:27 Dose: 0.25 mg Apixaban (Eliquis -) 5 mg PO BID [facility] Last Admin: 11/07/18 08:52 Dose: 5 mg Ascorbic Acid (Vitamin C -) 500 mg PO BID [facility] Baclofen (Lioresal -) 10 mg PO TID [facility] Last Admin: 11/07/18 06:58 Dose: 10 mg Cholecalciferol (Vitamin D3 -) 1,000 unit PO DAILY [facility] Cyanocobalamin (Vitamin B12 -) 1,000 mcg PO DAILY [facility] Cyanocobalamin (Vitamin B12 Injection -) 1,000 mcg IM Q7D@1000 [facility] Diltiazem HCl (Cardizem Cd -) 180 mg PO DAILY [facility] Last Admin: 11/07/18 08:52 Dose: 180 mg Doxepin HCl (Sinequan -) 25 mg PO HS [facility] Last Admin: 11/06/18 23:30 Dose: 25 mg Ferrous Sulfate (Feosol -) 325 mg PO BID [facility] Last Admin: 11/07/18 08:52 Dose: 325 mg Hydromorphone HCl (Dilaudid -) 2 mg PO Q4H PRN PRN Reason: PAIN LEVEL 4 - 6 Last Admin: 11/07/18 08:53 Dose: 2 mg Vancomycin HCl (Vancomycin (Pre-Docked)) 1,000 mg in 250 mls @ 166.667 mls/hr IVPB DAILY@1330 [facility]; Protocol Last Admin: 11/06/18 14:31 Dose: 166.667 mls/hr Insulin Aspart (Novolog Vial Sliding Scale -) 1 vial SQ ACHS [facility]; Protocol Last Admin: 11/07/18 07:00 Dose: Not Given Levothyroxine Sodium (Synthroid -) 50 mcg PO DAILY@0700 [facility] Last Admin: 11/07/18 06:58 Dose: 50 mcg Montelukast Sodium (Singulair -) 10 mg PO [facility] Last Admin: 11/06/18 23:30 Dose: 10 mg Multi-Ingredient Lotion (Eucerin (Large Jar) -) 1 applic TP DAILY PRN PRN Reason: DRY SKIN Last Admin: 11/05/18 21:00 Dose: 1 applic Multi-Ingredient Ointment (Zinc Oxide) 1 applic TP BID [facility] Last Admin: 11/06/18 23:31 Dose: 1 applic Multivit/Ca Carb/B Cmplx/FA/Prenat (Nephro-Héctor -) 1 tablet PO DAILY [facility] Nystatin (Nystop Powder -) 1 applic TP DAILY [facility] Last Admin: 11/06/18 11:35 Dose: 1 applic Nystatin (Nystop Powder -) 1 applic TP BID [facility] Last Admin: 11/06/18 23:30 Dose: 1 applic Pramipexole Dihydrochloride (Mirapex -) 0.25 mg PO TID [facility] Last Admin: 11/07/18 06:58 Dose: 0.25 mg Ranitidine HCl (Zantac -) 300 mg PO [facility] Last Admin: 11/06/18 23:30 Dose: 300 mg Rosuvastatin Calcium (Crestor -) 10 mg PO [facility] Last Admin: 11/06/18 23:28 Dose: 10 mg Topiramate (Topamax -) 100 mg PO DAILY [facility] Last Admin: 11/07/18 08:52 Dose: 100 mg Venlafaxine HCl (Effexor Xr -) 75 mg PO DAILY [facility] Last Admin: 11/07/18 08:52 Dose: 75 mg - Objective Vital Signs: Vital Signs Temperature 98 F 11/06/18 16:30 Pulse Rate 118 H 11/06/18 16:30 Respiratory Rate 20 11/06/18 16:30 Blood Pressure 123/72 11/06/18 16:30 O2 Sat by Pulse Oximetry (%) 99 11/05/18 21:00 Constitutional: Yes: Well Nourished, No Distress, Calm Cardiovascular: Yes: Regular Rate and Rhythm Respiratory: Yes: Regular, Other (trach collar) Gastrointestinal: Yes: Normal Bowel Sounds, Soft Musculoskeletal: Yes: Muscle Weakness Edema: No Peripheral Pulses WNL: Yes Neurological: Yes: Alert, Oriented Psychiatric: Yes: Alert, Oriented Labs: CBC, BMP 11/07/18 06:00 11/07/18 06:00 Problem List - Problems (1) MDRO (multiple drug resistant organisms) resistance Assessment/Plan: -ID on board -cultures: Microbiology 11/02/18 06:15 Blood - Peripheral Venous Blood Culture - Preliminary NO GROWTH OBTAINED AFTER 96 HOURS, INCUBATION TO CONTINUE FOR 1 DAYS. 11/02/18 06:30 Blood - Peripheral Venous Blood Culture - Preliminary NO GROWTH OBTAINED AFTER 96 HOURS, INCUBATION TO CONTINUE FOR 1 DAYS. 10/29/18 17:00 Blood - Peripheral Venous Blood Culture - Final NO GROWTH AFTER 5 DAYS INCUBATION 10/29/18 17:00 Blood - Peripheral Venous Blood Culture - Final NO GROWTH AFTER 5 DAYS INCUBATION 10/29/18 17:00 Sputum - Endotracheal Suction W/O Vent Gram Stain - Final 10/29/18 17:00 Sputum - Endotracheal Suction W/O Vent Sputum Culture - Final Pseudomonas Aeruginosa 10/29/18 17:00 Urine - Urine Clean Catch Urine Culture - Final Contaminated: Please Repeat -On Vanco -IV abx as per ID Code(s): Z16.35 - RESISTANCE TO MULTIPLE ANTIMICROBIAL DRUGS (2) Bacteremia due to methicillin resistant Staphylococcus aureus Code(s): R78.81 - BACTEREMIA (3) Change in mental state Assessment/Plan: -much improved -2/2 to metabolic encephalopathy -IV abx -ID consult -cultures reviewed Code(s): R41.82 - ALTERED MENTAL STATUS, UNSPECIFIED (4) COPD exacerbation Code(s): J44.1 - CHRONIC OBSTRUCTIVE PULMONARY DISEASE W (ACUTE) EXACERBATION (5) Diabetes Assessment/Plan: -BGM AC HS -Diabetic low sodium diet -Insulin sliding scale -endocrinology -Last A1c @10.3 -dietary non compliance outpatient Code(s): E11.9 - TYPE 2 DIABETES MELLITUS WITHOUT COMPLICATIONS (6) Anemia Assessment/Plan: -chronic multifactorial -JUDY in the past -repeat iron profile normal -B12, Thyroid profile normal -Stool OB pending -On Ferrous sulfate bid -monitor trend Code(s): D64.9 - ANEMIA, UNSPECIFIED (7) Acute metabolic encephalopathy Assessment/Plan: -Seen by neurology -CT head and MRI brain are unremarkable -REFUSES THORACIC MRI DUE TO CLAUSTROPHOBIA, EVEN AFTER TRYING ATIVAN-CT MYELOGRAM ORDERED INSTEAD Code(s): G93.41 - METABOLIC ENCEPHALOPATHY Assessment/Plan see problem list
[2018-11-07] MEDS ORDERED: CYANOCOBALAMIN (VITAMIN B-12) 1000 MCG/1 ML VIAL IM SCH (10:00)
[2018-11-07 10:02] LABS: ANISOCYTOSIS 0; MACROCYTOSIS 0; PLATELET ESTIMATE NORMAL
[2018-11-07] MEDS: ZINC OXIDE 20% TOPICAL OINTMENT 30 GM TUBE TP SCH ×2 (10:46→21:43)
[2018-11-07] MEDS: CHOLECALCIFEROL (VITAMIN D3) 1,000 UNIT TABLET (FP) PO SCH (10:46)
[2018-11-07] MEDS: CYANOCOBALAMIN 1,000 MCG TABLET (FP) PO SCH (10:46)
[2018-11-07] MEDS: ASCORBIC ACID 500 MG TABLET (FP) PO SCH ×2 (10:46→21:38)
[2018-11-07] MEDS: NYSTATIN POWDER 100,000 UNITS/GM - 15 GM TOPICAL POWDER TP SCH ×3 (10:48→21:51)
[2018-11-07] MEDS: VANCOMYCIN 1 GRAM (PRE-DOCKED) 1,000 MG/250 ML BAG IVPB SCH (13:51)
[2018-11-07] MEDS: VITAMIN B COMP W-C 1 EA TABLET PO SCH (14:00)
--- NOTE | 2018-11-07 14:11 | PN ---
Progress Note, Physician History of Present Illness: PULMONARY ALERT ,-RESP DISTRESS,C/O NAUSEA - Current Medication List Current Medications: Active Medications Acetaminophen (Tylenol -) 650 mg PO Q6H PRN PRN Reason: FEVER Last Admin: 11/05/18 21:02 Dose: 650 mg Albuterol/Ipratropium (Duoneb -) 1 amp NEB RQID [facility] Last Admin: 11/07/18 11:37 Dose: 1 amp Alprazolam (Xanax -) 0.25 mg PO Q8H PRN PRN Reason: ANXIETY Last Admin: 11/07/18 01:27 Dose: 0.25 mg Apixaban (Eliquis -) 5 mg PO BID [facility] Last Admin: 11/07/18 10:44 Dose: Not Given Ascorbic Acid (Vitamin C -) 500 mg PO BID [facility] Last Admin: 11/07/18 10:46 Dose: 500 mg Baclofen (Lioresal -) 10 mg PO TID [facility] Last Admin: 11/07/18 13:51 Dose: 10 mg Cholecalciferol (Vitamin D3 -) 1,000 unit PO DAILY [facility] Last Admin: 11/07/18 10:46 Dose: 1,000 unit Cyanocobalamin (Vitamin B12 -) 1,000 mcg PO DAILY [facility] Last Admin: 11/07/18 10:46 Dose: 1,000 mcg Cyanocobalamin (Vitamin B12 Injection -) 1,000 mcg IM Q7D@1000 [facility] Last Admin: 11/07/18 10:45 Dose: 1,000 mcg Diltiazem HCl (Cardizem Cd -) 180 mg PO DAILY [facility] Last Admin: 11/07/18 10:43 Dose: Not Given Doxepin HCl (Sinequan -) 25 mg PO HS [facility] Last Admin: 11/06/18 23:30 Dose: 25 mg Ferrous Sulfate (Feosol -) 325 mg PO BID [facility] Last Admin: 11/07/18 10:44 Dose: Not Given Hydromorphone HCl (Dilaudid -) 2 mg PO Q4H PRN PRN Reason: PAIN LEVEL 4 - 6 Last Admin: 11/07/18 08:53 Dose: 2 mg Vancomycin HCl (Vancomycin (Pre-Docked)) 1,000 mg in 250 mls @ 166.667 mls/hr IVPB DAILY@1330 [facility]; Protocol Last Admin: 11/07/18 13:51 Dose: 166.667 mls/hr Insulin Aspart (Novolog Vial Sliding Scale -) 1 vial SQ ACHS [facility]; Protocol Last Admin: 11/07/18 12:41 Dose: Not Given Levothyroxine Sodium (Synthroid -) 50 mcg PO DAILY@0700 [facility] Last Admin: 11/07/18 06:58 Dose: 50 mcg Montelukast Sodium (Singulair -) 10 mg PO [facility] Last Admin: 11/06/18 23:30 Dose: 10 mg Multi-Ingredient Lotion (Eucerin (Large Jar) -) 1 applic TP DAILY PRN PRN Reason: DRY SKIN Last Admin: 11/05/18 21:00 Dose: 1 applic Multi-Ingredient Ointment (Zinc Oxide) 1 applic TP BID [facility] Last Admin: 11/07/18 10:46 Dose: 1 applic Multivit/Ca Carb/B Cmplx/FA/Prenat (Nephro-Héctor -) 1 tablet PO DAILY [facility] Last Admin: 11/07/18 14:00 Dose: Not Given Nystatin (Nystop Powder -) 1 applic TP DAILY [facility] Last Admin: 11/07/18 10:48 Dose: 1 applic Nystatin (Nystop Powder -) 1 applic TP BID [facility] Last Admin: 11/07/18 10:48 Dose: 1 applic Pramipexole Dihydrochloride (Mirapex -) 0.25 mg PO TID [facility] Last Admin: 11/07/18 13:52 Dose: 0.25 mg Ranitidine HCl (Zantac -) 300 mg PO [facility] Last Admin: 11/06/18 23:30 Dose: 300 mg Rosuvastatin Calcium (Crestor -) 10 mg PO [facility] Last Admin: 11/06/18 23:28 Dose: 10 mg Topiramate (Topamax -) 100 mg PO DAILY [facility] Last Admin: 11/07/18 10:44 Dose: Not Given Venlafaxine HCl (Effexor Xr -) 75 mg PO DAILY [facility] Last Admin: 11/07/18 10:43 Dose: Not Given - Objective Vital Signs: Vital Signs Temperature 98.2 F 11/07/18 10:00 Pulse Rate 108 H 11/07/18 10:00 Respiratory Rate 20 11/07/18 10:00 Blood Pressure 104/60 11/07/18 10:00 O2 Sat by Pulse Oximetry (%) 98 11/07/18 09:00 Constitutional: Yes: Well Nourished, Calm Eyes: Yes: WNL HENT: Yes: WNL Neck: Yes: Supple (TRACH) Cardiovascular: Yes: Regular Rate and Rhythm, S1, S2 Respiratory: Yes: Rhonchi (FEW SCATTERED RHONCHI) Gastrointestinal: Yes: Normal Bowel Sounds Extremities: Yes: WNL Edema: No Labs: CBC, BMP 11/07/18 06:00 11/07/18 06:00 - ....Imaging Chest X-ray: Report Reviewed, Image Reviewed Problem List - Problems (1) Bacteremia due to methicillin resistant Staphylococcus aureus Code(s): R78.81 - BACTEREMIA (2) Change in mental state Code(s): R41.82 - ALTERED MENTAL STATUS, UNSPECIFIED (3) Acute and chronic respiratory failure with hypoxia Code(s): J96.21 - ACUTE AND CHRONIC RESPIRATORY FAILURE WITH HYPOXIA (4) Acute on chronic respiratory failure with hypoxia and hypercapnia Code(s): J96.21 - ACUTE AND CHRONIC RESPIRATORY FAILURE WITH HYPOXIA; J96.22 - ACUTE AND CHRONIC RESPIRATORY FAILURE WITH HYPERCAPNIA (5) Acute wheezy bronchitis Code(s): J20.9 - ACUTE BRONCHITIS, UNSPECIFIED (6) Hypothyroid Code(s): E03.9 - HYPOTHYROIDISM, UNSPECIFIED Qualifiers: Hypothyroidism type: unspecified Qualified Code(s): E03.9 - Hypothyroidism , unspecified Assessment/Plan A/P Bacteremia Acute on Chronic Hypoxic Respiratory Failure Asthma/COPD Altered Mental Status improving Atrial Fibrillation Hypercholesterolemia - continue antibiotics per ID - inhaled bronchodilators - O2 to keep SpO2 >90% - rate control - continue anticoagulation DR RUFFIN
[2018-11-07] MEDS: ROSUVASTATIN CA 10 MG TABLET (FP) PO SCH (21:40)
[2018-11-07] MEDS: RANITIDINE HCL 150 MG TABLET (FP) PO SCH (21:48)
[2018-11-07] MEDS: MONTELUKAST NA 10 MG TABLET PO SCH (21:49)
[2018-11-07] MEDS: DOXEPIN HCL 25 MG CAPSULE PO SCH (21:50)
[2018-11-08] MEDS: BACLOFEN 10 MG TABLET (FP) PO SCH ×3 (05:32→21:11)
[2018-11-08] MEDS: PRAMIPEXOLE DIHYDROCHLORIDE 0.25 MG TABLET PO SCH ×3 (05:33→21:11)
[2018-11-08] MEDS: HYDROmorphone HCL 2 MG TABLET PO PRN ×2 (05:35→21:25)
[2018-11-08] MEDS: INSULIN SLIDING SCALE (NOVOLOG) 1 VIAL SQ SCH ×4 (06:09→22:11)
[2018-11-08] MEDS: LEVOTHYROXINE NA 50 MCG TABLET (FP) PO SCH (06:10)
[2018-11-08] MEDS ORDERED: PT OWN MED DRAWER 7, Y5N ONE ×2 (06:13→20:33)
[2018-11-08] MEDS: ALBUTEROL SO4 2.5/IPRATROPIUM 0.5 INH SOL 3 ML VIAL.NEB. NEB SCH ×4 (07:50→21:19)
--- NOTE | 2018-11-08 10:41 | PN ---
Progress Note, Physician History of Present Illness: Awake, responsive Mildly confused Complains of cough Afebrile vancomycin trough noted - Current Medication List Current Medications: Active Medications Acetaminophen (Tylenol -) 650 mg PO Q6H PRN PRN Reason: FEVER Last Admin: 11/05/18 21:02 Dose: 650 mg Albuterol/Ipratropium (Duoneb -) 1 amp NEB RQID [facility] Last Admin: 11/08/18 07:50 Dose: 1 amp Alprazolam (Xanax -) 0.25 mg PO Q8H PRN PRN Reason: ANXIETY Last Admin: 11/07/18 01:27 Dose: 0.25 mg Apixaban (Eliquis -) 5 mg PO BID [facility] Last Admin: 11/07/18 21:39 Dose: 5 mg Ascorbic Acid (Vitamin C -) 500 mg PO BID [facility] Last Admin: 11/07/18 21:38 Dose: 500 mg Baclofen (Lioresal -) 10 mg PO TID [facility] Last Admin: 11/08/18 05:32 Dose: 10 mg Cholecalciferol (Vitamin D3 -) 1,000 unit PO DAILY [facility] Last Admin: 11/07/18 10:46 Dose: 1,000 unit Cyanocobalamin (Vitamin B12 -) 1,000 mcg PO DAILY [facility] Last Admin: 11/07/18 10:46 Dose: 1,000 mcg Cyanocobalamin (Vitamin B12 Injection -) 1,000 mcg IM Q7D@1000 [facility] Last Admin: 11/07/18 10:45 Dose: 1,000 mcg Diltiazem HCl (Cardizem Cd -) 180 mg PO DAILY [facility] Last Admin: 11/07/18 10:43 Dose: Not Given Doxepin HCl (Sinequan -) 25 mg PO HS [facility] Last Admin: 11/07/18 21:50 Dose: 25 mg Ferrous Sulfate (Feosol -) 325 mg PO BID [facility] Last Admin: 11/07/18 21:38 Dose: 325 mg Hydromorphone HCl (Dilaudid -) 2 mg PO Q4H PRN PRN Reason: PAIN LEVEL 4 - 6 Last Admin: 11/08/18 05:35 Dose: 2 mg Insulin Aspart (Novolog Vial Sliding Scale -) 1 vial SQ ACHS [facility]; Protocol Last Admin: 11/08/18 06:09 Dose: Not Given Levothyroxine Sodium (Synthroid -) 50 mcg PO DAILY@0700 [facility] Last Admin: 11/08/18 06:10 Dose: 50 mcg Montelukast Sodium (Singulair -) 10 mg PO [facility] Last Admin: 11/07/18 21:49 Dose: 10 mg Multi-Ingredient Lotion (Eucerin (Large Jar) -) 1 applic TP DAILY PRN PRN Reason: DRY SKIN Last Admin: 11/05/18 21:00 Dose: 1 applic Multi-Ingredient Ointment (Zinc Oxide) 1 applic TP BID [facility] Last Admin: 11/07/18 21:43 Dose: 1 applic Multivit/Ca Carb/B Cmplx/FA/Prenat (Nephro-Héctor -) 1 tablet PO DAILY [facility] Last Admin: 11/07/18 14:00 Dose: Not Given Nystatin (Nystop Powder -) 1 applic TP DAILY [facility] Last Admin: 11/07/18 10:48 Dose: 1 applic Nystatin (Nystop Powder -) 1 applic TP BID [facility] Last Admin: 11/07/18 21:51 Dose: 1 applic Pramipexole Dihydrochloride (Mirapex -) 0.25 mg PO TID [facility] Last Admin: 11/08/18 05:33 Dose: 0.25 mg Ranitidine HCl (Zantac -) 300 mg PO [facility] Last Admin: 11/07/18 21:48 Dose: 300 mg Rosuvastatin Calcium (Crestor -) 10 mg PO [facility] Last Admin: 11/07/18 21:40 Dose: 10 mg Topiramate (Topamax -) 100 mg PO DAILY [facility] Last Admin: 11/07/18 10:44 Dose: Not Given Venlafaxine HCl (Effexor Xr -) 75 mg PO DAILY [facility] Last Admin: 11/07/18 10:43 Dose: Not Given - Objective Vital Signs: Vital Signs Temperature 97.5 F L 11/08/18 06:00 Pulse Rate 108 H 11/08/18 06:00 Respiratory Rate 18 11/08/18 06:00 Blood Pressure 99/68 11/08/18 06:00 O2 Sat by Pulse Oximetry (%) 98 11/07/18 20:10 Constitutional: Yes: No Distress Eyes: Yes: Conjunctiva Clear Cardiovascular: Yes: Regular Rate and Rhythm, S1, S2 Respiratory: Yes: Rhonchi Gastrointestinal: Yes: Normal Bowel Sounds, Soft. No: Tenderness Edema: No Labs: CBC, BMP 11/07/18 06:00 11/07/18 06:00 Assessment/Plan Polymicrobial bacteremia Toxic metabolic encephalopathy + Sputum c/s Pseudomonas likely colonizer Hold vancomycin. Repeat level am Day #12 vancomycin Advise PICC for additional 2wk IV Vancomycin as outpatient
--- NOTE | 2018-11-08 11:28 | PN ---
Progress Note, Physician Chief Complaint: patient seen and examined sitting on bed , got up with PT by bedside and walker support in confused has dyspnea iv abx for bacteremia- needs picc line spoke to radiology want ct of T spine with contrast rather than myelogram to look for mass- order placed patient mati need to go to snf - Current Medication List Current Medications: Active Medications Acetaminophen (Tylenol -) 650 mg PO Q6H PRN PRN Reason: FEVER Last Admin: 11/05/18 21:02 Dose: 650 mg Albuterol/Ipratropium (Duoneb -) 1 amp NEB RQID [facility] Last Admin: 11/08/18 07:50 Dose: 1 amp Alprazolam (Xanax -) 0.25 mg PO Q8H PRN PRN Reason: ANXIETY Last Admin: 11/07/18 01:27 Dose: 0.25 mg Apixaban (Eliquis -) 5 mg PO BID [facility] Last Admin: 11/07/18 21:39 Dose: 5 mg Ascorbic Acid (Vitamin C -) 500 mg PO BID [facility] Last Admin: 11/07/18 21:38 Dose: 500 mg Baclofen (Lioresal -) 10 mg PO TID [facility] Last Admin: 11/08/18 05:32 Dose: 10 mg Cholecalciferol (Vitamin D3 -) 1,000 unit PO DAILY [facility] Last Admin: 11/07/18 10:46 Dose: 1,000 unit Cyanocobalamin (Vitamin B12 -) 1,000 mcg PO DAILY [facility] Last Admin: 11/07/18 10:46 Dose: 1,000 mcg Cyanocobalamin (Vitamin B12 Injection -) 1,000 mcg IM Q7D@1000 [facility] Last Admin: 11/07/18 10:45 Dose: 1,000 mcg Diltiazem HCl (Cardizem Cd -) 180 mg PO DAILY [facility] Last Admin: 11/07/18 10:43 Dose: Not Given Doxepin HCl (Sinequan -) 25 mg PO HS [facility] Last Admin: 11/07/18 21:50 Dose: 25 mg Ferrous Sulfate (Feosol -) 325 mg PO BID [facility] Last Admin: 11/07/18 21:38 Dose: 325 mg Hydromorphone HCl (Dilaudid -) 2 mg PO Q4H PRN PRN Reason: PAIN LEVEL 4 - 6 Last Admin: 11/08/18 05:35 Dose: 2 mg Insulin Aspart (Novolog Vial Sliding Scale -) 1 vial SQ ACHS [facility]; Protocol Last Admin: 11/08/18 06:09 Dose: Not Given Levothyroxine Sodium (Synthroid -) 50 mcg PO DAILY@0700 [facility] Last Admin: 11/08/18 06:10 Dose: 50 mcg Montelukast Sodium (Singulair -) 10 mg PO [facility] Last Admin: 11/07/18 21:49 Dose: 10 mg Multi-Ingredient Lotion (Eucerin (Large Jar) -) 1 applic TP DAILY PRN PRN Reason: DRY SKIN Last Admin: 11/05/18 21:00 Dose: 1 applic Multi-Ingredient Ointment (Zinc Oxide) 1 applic TP BID [facility] Last Admin: 11/07/18 21:43 Dose: 1 applic Multivit/Ca Carb/B Cmplx/FA/Prenat (Nephro-Héctor -) 1 tablet PO DAILY [facility] Last Admin: 11/07/18 14:00 Dose: Not Given Nystatin (Nystop Powder -) 1 applic TP DAILY [facility] Last Admin: 11/07/18 10:48 Dose: 1 applic Nystatin (Nystop Powder -) 1 applic TP BID [facility] Last Admin: 11/07/18 21:51 Dose: 1 applic Pramipexole Dihydrochloride (Mirapex -) 0.25 mg PO TID [facility] Last Admin: 11/08/18 05:33 Dose: 0.25 mg Ranitidine HCl (Zantac -) 300 mg PO [facility] Last Admin: 11/07/18 21:48 Dose: 300 mg Rosuvastatin Calcium (Crestor -) 10 mg PO [facility] Last Admin: 11/07/18 21:40 Dose: 10 mg Topiramate (Topamax -) 100 mg PO DAILY [facility] Last Admin: 11/07/18 10:44 Dose: Not Given Venlafaxine HCl (Effexor Xr -) 75 mg PO DAILY [facility] Last Admin: 11/07/18 10:43 Dose: Not Given - Objective Vital Signs: Vital Signs Temperature 97.5 F L 11/08/18 06:00 Pulse Rate 108 H 11/08/18 06:00 Respiratory Rate 18 11/08/18 06:00 Blood Pressure 99/68 11/08/18 06:00 O2 Sat by Pulse Oximetry (%) 98 11/07/18 20:10 Constitutional: Yes: Calm Neck: Yes: Other (trach collar) Cardiovascular: Yes: Regular Rate and Rhythm, S1, S2 Respiratory: Yes: CTA Bilaterally (in upper zones), Diminished (in lower zones) Gastrointestinal: Yes: Normal Bowel Sounds, Soft Edema: No Labs: CBC, BMP 11/07/18 06:00 11/07/18 06:00 Problem List - Problems (1) MDRO (multiple drug resistant organisms) resistance Assessment/Plan: Microbiology 11/02/18 06:30 Blood - Peripheral Venous Blood Culture - Final NO GROWTH AFTER 5 DAYS INCUBATION 11/02/18 06:15 Blood - Peripheral Venous Blood Culture - Final NO GROWTH AFTER 5 DAYS INCUBATION 10/29/18 17:00 Urine - Urine Clean Catch Urine Culture - Final Contaminated: Please Repeat 10/29/18 17:00 Sputum - Endotracheal Suction W/O Vent Gram Stain - Final 10/29/18 17:00 Sputum - Endotracheal Suction W/O Vent Sputum Culture - Final Pseudomonas Aeruginosa iv vancomycin for 2 more weeks picc line order placed Code(s): Z16.35 - RESISTANCE TO MULTIPLE ANTIMICROBIAL DRUGS (2) Acute metabolic encephalopathy Assessment/Plan: ct of T spine ordered with contrast to look for recurrent mass neurology on board stop all antihistamines Code(s): G93.41 - METABOLIC ENCEPHALOPATHY (3) Diabetes Assessment/Plan: sliding sclae hgba1c noted Code(s): E11.9 - TYPE 2 DIABETES MELLITUS WITHOUT COMPLICATIONS (4) Restless leg syndrome Assessment/Plan: pramipexole Code(s): G25.81 - RESTLESS LEGS SYNDROME (5) Hypothyroid Assessment/Plan: synthroid tsh within normal limits Code(s): E03.9 - HYPOTHYROIDISM, UNSPECIFIED Qualifiers: Hypothyroidism type: unspecified Qualified Code(s): E03.9 - Hypothyroidism , unspecified (6) Migraine headache Assessment/Plan: topiramiate and doxepin Code(s): G43.909 - MIGRAINE, UNSP, NOT INTRACTABLE, WITHOUT STATUS MIGRAINOSUS (7) Afib Assessment/Plan: eliquis Code(s): I48.91 - UNSPECIFIED ATRIAL FIBRILLATION (8) Depression with anxiety Assessment/Plan: effexor and xanax Code(s): F41.8 - OTHER SPECIFIED ANXIETY DISORDERS (9) Anemia Assessment/Plan: ferrous sulfate bid Code(s): D64.9 - ANEMIA, UNSPECIFIED Assessment/Plan picc line for iv vanco check level tmw thoracic spine CT with contrast to r/o recurrent tumor snf placement
[2018-11-08] MEDS: VENLAFAXINE HCL 75 MG E.R. CAPSULES (FP) PO SCH (11:34)
[2018-11-08] MEDS: FERROUS SO4 325 MG TABLET (FP) PO SCH ×2 (11:34→21:11)
[2018-11-08] MEDS: APIXABAN 5 MG TABLET PO SCH ×2 (11:34→21:10)
[2018-11-08] MEDS: CYANOCOBALAMIN 1,000 MCG TABLET (FP) PO SCH (11:35)
[2018-11-08] MEDS: CHOLECALCIFEROL (VITAMIN D3) 1,000 UNIT TABLET (FP) PO SCH (11:35)
[2018-11-08] MEDS: TOPIRAMATE 100 MG TABLET PO SCH (11:35)
[2018-11-08] MEDS: ASCORBIC ACID 500 MG TABLET (FP) PO SCH ×2 (11:35→21:10)
[2018-11-08] MEDS: VITAMIN B COMP W-C 1 EA TABLET PO SCH (11:35)
--- NOTE | 2018-11-08 13:31 | PN ---
Progress Note, Physician History of Present Illness: PULMONARY ALERT,COMFORTABLE,-RESP DISTRESS - Current Medication List Current Medications: Active Medications Acetaminophen (Tylenol -) 650 mg PO Q6H PRN PRN Reason: FEVER Last Admin: 11/05/18 21:02 Dose: 650 mg Albuterol/Ipratropium (Duoneb -) 1 amp NEB RQID [facility] Last Admin: 11/08/18 11:33 Dose: 1 amp Alprazolam (Xanax -) 0.25 mg PO Q8H PRN PRN Reason: ANXIETY Last Admin: 11/07/18 01:27 Dose: 0.25 mg Apixaban (Eliquis -) 5 mg PO BID [facility] Last Admin: 11/08/18 11:34 Dose: 5 mg Ascorbic Acid (Vitamin C -) 500 mg PO BID [facility] Last Admin: 11/08/18 11:35 Dose: 500 mg Baclofen (Lioresal -) 10 mg PO TID [facility] Last Admin: 11/08/18 05:32 Dose: 10 mg Cholecalciferol (Vitamin D3 -) 1,000 unit PO DAILY [facility] Last Admin: 11/08/18 11:35 Dose: 1,000 unit Cyanocobalamin (Vitamin B12 -) 1,000 mcg PO DAILY [facility] Last Admin: 11/08/18 11:35 Dose: 1,000 mcg Cyanocobalamin (Vitamin B12 Injection -) 1,000 mcg IM Q7D@1000 [facility] Last Admin: 11/07/18 10:45 Dose: 1,000 mcg Diltiazem HCl (Cardizem Cd -) 180 mg PO DAILY [facility] Last Admin: 11/08/18 11:33 Dose: 180 mg Doxepin HCl (Sinequan -) 25 mg PO HS [facility] Last Admin: 11/07/18 21:50 Dose: 25 mg Ferrous Sulfate (Feosol -) 325 mg PO BID [facility] Last Admin: 11/08/18 11:34 Dose: 325 mg Hydromorphone HCl (Dilaudid -) 2 mg PO Q4H PRN PRN Reason: PAIN LEVEL 4 - 6 Last Admin: 11/08/18 05:35 Dose: 2 mg Insulin Aspart (Novolog Vial Sliding Scale -) 1 vial SQ ACHS [facility]; Protocol Last Admin: 11/08/18 12:44 Dose: Not Given Levothyroxine Sodium (Synthroid -) 50 mcg PO DAILY@0700 [facility] Last Admin: 11/08/18 06:10 Dose: 50 mcg Montelukast Sodium (Singulair -) 10 mg PO HS [facility] Last Admin: 11/07/18 21:49 Dose: 10 mg Multi-Ingredient Lotion (Eucerin (Large Jar) -) 1 applic TP DAILY PRN PRN Reason: DRY SKIN Last Admin: 11/05/18 21:00 Dose: 1 applic Multi-Ingredient Ointment (Zinc Oxide) 1 applic TP BID [facility] Last Admin: 11/07/18 21:43 Dose: 1 applic Multivit/Ca Carb/B Cmplx/FA/Prenat (Nephro-Héctor -) 1 tablet PO DAILY [facility] Last Admin: 11/08/18 11:35 Dose: 1 tablet Nystatin (Nystop Powder -) 1 applic TP DAILY [facility] Last Admin: 11/07/18 10:48 Dose: 1 applic Nystatin (Nystop Powder -) 1 applic TP BID [facility] Last Admin: 11/07/18 21:51 Dose: 1 applic Pramipexole Dihydrochloride (Mirapex -) 0.25 mg PO TID [facility] Last Admin: 11/08/18 05:33 Dose: 0.25 mg Ranitidine HCl (Zantac -) 300 mg PO [facility] Last Admin: 11/07/18 21:48 Dose: 300 mg Rosuvastatin Calcium (Crestor -) 10 mg PO [facility] Last Admin: 11/07/18 21:40 Dose: 10 mg Topiramate (Topamax -) 100 mg PO DAILY [facility] Last Admin: 11/08/18 11:35 Dose: 100 mg Venlafaxine HCl (Effexor Xr -) 75 mg PO DAILY [facility] Last Admin: 11/08/18 11:34 Dose: 75 mg - Objective Vital Signs: Vital Signs Temperature 97.5 F L 11/08/18 06:00 Pulse Rate 108 H 11/08/18 06:00 Respiratory Rate 18 11/08/18 06:00 Blood Pressure 99/68 11/08/18 06:00 O2 Sat by Pulse Oximetry (%) 98 11/07/18 20:10 Constitutional: Yes: Well Nourished, Calm Eyes: Yes: WNL HENT: Yes: WNL Neck: Yes: Supple (TRACH) Cardiovascular: Yes: Pulse Irregular, S1, S2 Respiratory: Yes: Wheezes (SCATTERED TAO WHEEZES) Gastrointestinal: Yes: Normal Bowel Sounds, Soft Extremities: Yes: WNL Edema: No Labs: CBC, BMP Problem List - Problems (1) Bacteremia due to methicillin resistant Staphylococcus aureus Code(s): R78.81 - BACTEREMIA (2) Change in mental state Code(s): R41.82 - ALTERED MENTAL STATUS, UNSPECIFIED (3) Acute and chronic respiratory failure with hypoxia Code(s): J96.21 - ACUTE AND CHRONIC RESPIRATORY FAILURE WITH HYPOXIA (4) Acute on chronic respiratory failure with hypoxia and hypercapnia Code(s): J96.21 - ACUTE AND CHRONIC RESPIRATORY FAILURE WITH HYPOXIA; J96.22 - ACUTE AND CHRONIC RESPIRATORY FAILURE WITH HYPERCAPNIA (5) Acute wheezy bronchitis Code(s): J20.9 - ACUTE BRONCHITIS, UNSPECIFIED (6) Hypothyroid Code(s): E03.9 - HYPOTHYROIDISM, UNSPECIFIED Qualifiers: Hypothyroidism type: unspecified Qualified Code(s): E03.9 - Hypothyroidism , unspecified Assessment/Plan A/P Bacteremia Acute on Chronic Hypoxic Respiratory Failure Asthma/COPD Altered Mental Status improving Atrial Fibrillation Hypercholesterolemia - continue antibiotics per ID - inhaled bronchodilators - O2 to keep SpO2 >90% - rate control - continue anticoagulation DR RUFFIN
[2018-11-08] MEDS: NYSTATIN POWDER 100,000 UNITS/GM - 15 GM TOPICAL POWDER TP SCH ×3 (14:55→21:20)
[2018-11-08] MEDS: ZINC OXIDE 20% TOPICAL OINTMENT 30 GM TUBE TP SCH ×2 (14:56→21:18)
[2018-11-08] MEDS: ALPRAZolam 0.25 MG TABLET PO PRN ×2 (14:57→23:37)
[2018-11-08] MEDS: MINERAL OIL/PETROLAT/WATER TOPICAL CREAM 454 GM JAR TP SCH ×2 (17:57→21:24)
[2018-11-08] MEDS: DOXEPIN HCL 25 MG CAPSULE PO SCH (21:10)
[2018-11-08] MEDS: ROSUVASTATIN CA 10 MG TABLET (FP) PO SCH (21:10)
[2018-11-08] MEDS: MONTELUKAST NA 10 MG TABLET PO SCH (21:10)
[2018-11-08] MEDS: RANITIDINE HCL 150 MG TABLET (FP) PO SCH (21:10)
[2018-11-08] MEDS: hydrOXYzine HCL 10 MG TABLET PO PRN (22:12)
[2018-11-09] MEDS: HYDROmorphone HCL 2 MG TABLET PO PRN ×4 (00:43→22:56)
[2018-11-09] MEDS: BACLOFEN 10 MG TABLET (FP) PO SCH ×3 (05:16→22:57)
[2018-11-09] MEDS: PRAMIPEXOLE DIHYDROCHLORIDE 0.25 MG TABLET PO SCH ×2 (05:16→15:52)
[2018-11-09] MEDS: INSULIN SLIDING SCALE (NOVOLOG) 1 VIAL SQ SCH ×4 (06:11→23:07)
[2018-11-09] MEDS: LEVOTHYROXINE NA 50 MCG TABLET (FP) PO SCH (06:12)
[2018-11-09 07:13] LABS: BASO % 0.6 % (0-2.0); EOS % 4.2 % (0-4.5); HEMATOCRIT 27.3 % (32.4-45.2); HEMOGLOBIN 8.9 GM/dL (10.7-15.3); LYMPH % 13.3 % (8-40); MCH 27.9 pg (25.7-33.7); MCHC 32.7 g/dl (32.0-36.0); MEAN CELL VOLUME 85.4 fl (80-96); MEAN PLT VOLUME 9.2 fl (7.5-11.1); MONO % 8.1 % (3.8-10.2); NEUT % 73.8 % (42.8-82.8); PLATELET COUNT 294 K/MM3 (134-434); RBC 3.19 M/mm3 (3.60-5.2); RDW 26.3 % (11.6-15.6); WHITE BLOOD COUNT 8.2 K/mm3 (4.0-10.0)
[2018-11-09 07:48] LABS: ALBUMIN 1.8 g/dl (3.4-5.0); ALK PHOS 212 U/L (45-117); ANION GAP 6 MMOL/L (8-16); BILIRUBIN,TOTAL 0.3 mg/dL (0.2-1); BLOOD UREA NITROGEN 5 mg/dL (7-18); CALCIUM 8.1 mg/dL (8.5-10.1); CHLORIDE 101 mmol/L (98-107); CO2 31 mmol/L (21-32); CREATININE 1.1 mg/dL (0.55-1.3); GLUCOSE,RANDOM 108 mg/dL (74-106); POTASSIUM 3.5 mmol/L (3.5-5.1); SGOT/AST 72 U/L (15-37); SGPT/ALT 28 U/L (13-61); SODIUM 137 mmol/L (136-145); TOT PROT 5.6 g/dl (6.4-8.2)
[2018-11-09] MEDS: ALBUTEROL SO4 2.5/IPRATROPIUM 0.5 INH SOL 3 ML VIAL.NEB. NEB SCH ×5 (08:53→20:30)
--- NOTE | 2018-11-09 09:58 | DS ---
Physical Examination Vital Signs: Vital Signs Temperature 98.3 F 11/09/18 06:00 Pulse Rate 105 H 11/09/18 06:00 Respiratory Rate 20 11/09/18 06:00 Blood Pressure 106/66 11/09/18 06:00 O2 Sat by Pulse Oximetry (%) 98 11/08/18 21:00 Constitutional: Yes: No Distress Eyes: Yes: WNL HENT: Yes: WNL Neck: Yes: WNL Cardiovascular: Yes: WNL Respiratory: Yes: Other Gastrointestinal: Yes: Soft Renal/: Yes: Other Musculoskeletal: Yes: Muscle Weakness Edema: No Integumentary: Yes: Pressure Ulcer, Other Wound/Incision: Yes: Dressing Dry and Intact Neurological: Yes: Pre-Existing Deficit ...Motor Strength: LLE, RLE Psychiatric: Yes: Other Labs: CBC, BMP 11/09/18 06:15 11/09/18 06:15 Discharge Summary Reason For Visit: BACTEREMIA DUE TO METHICILLIAN STAPHYLOCOCCUS Current Active Problems Anemia (Acute) Bacteremia due to methicillin resistant Staphylococcus aureus (Acute) Change in mental state (Acute) MDRO (multiple drug resistant organisms) resistance (Acute) Restless leg syndrome (Acute) Procedures: Principal: CT SCAN/XRAYS Hospital Course: ADMITTED WITH BACTEREMIA, IV ABX NEBS, PICC LINE FOR 2 WEEKS Condition: Stable - Instructions Diet, Activity, Other Instructions: VANCO IV [address] NOVA WHEN DISCHARGED Disposition: [facility] - Home Medications Comprehensive Discharge Medication List: Ambulatory Orders Albuterol Sulfate Inhaler - [Ventolin HFA Inhaler -] 2 puff IH Q4H PRN #0 inhaler 11/29/16 Acetaminophen [Tylenol .Regular Strength -] 650 mg PO Q6H PRN #0 tablet Apixaban [Eliquis -] 5 mg PO BID tablet 04/29/17 Baclofen 20 mg PO TID 07/09/18 Levocetirizine Dihydrochloride 5 mg PO HS 07/09/18 Levothyroxine [Synthroid -] 50 mcg PO DAILY 07/09/18 Rosuvastatin Calcium [Crestor] 10 mg PO DAILY 07/09/18 Venlafaxine HCl ER [Effexor Xr -] 75 mg PO DAILY 07/09/18 Famotidine 40 mg PO BID 08/07/18 Hydromorphone HCl 4 mg PO Q4H 08/07/18 Mirabegron [Myrbetriq] 50 mg PO DAILY 08/07/18 Montelukast Na [Singulair -] 10 mg PO HS 08/07/18 Doxepin HCl [Sinequan -] 25 mg PO DAILY #30 capsule 08/15/18 Linaclotide [Linzess] 145 mcg PO DAILY #30 cap 08/15/18 Pantoprazole Sodium [Protonix -] 40 mg PO DAILY #30 tablet.ec 08/15/18 Topiramate [Topamax -] 100 mg PO DAILY #30 tablet 08/15/18 Vortioxetine Hydrobromide [Trintellix] 20 mg PO DAILY #30 tablet 08/15/18 Gabapentin [Neurontin -] 500 mg PO Q8H #21 capsule 08/30/18 Insulin (Novolog) [Novolog -] 0 units SQ AC 08/30/18 Ondansetron [Zofran -] 8 mg PO TID 08/30/18 Zolpidem Tartrate 10 mg PO HS MDD 1 09/04/18 Gabapentin [Neurontin -] 500 mg PO TID #90 capsule 09/08/18 Ondansetron [Zofran *Odt*] 8 mg PO TID #90 tab.rapdis 09/09/18 Fluconazole [Diflucan -] 200 mg PO DAILY #7 tablet 09/18/18 Alprazolam [Xanax] 0.25 mg PO Q8H PRN tablet MDD 3 10/23/18 Gabapentin [Neurontin -] 500 mg PO TID #60 capsule 10/23/18 Acetaminophen [Tylenol] 650 mg PO TID #21 tablet 10/27/18 Azithromycin 250 mg PO ONCE #4 tablet 10/27/18 Ascorbic Acid [Vitamin C -] 500 mg PO BID tablet 11/09/18 Baclofen [Lioresal -] 10 mg PO TID tablet 11/09/18 Cholecalciferol (Vitamin D3) [Vitamin D3 -] 1,000 unit PO DAILY tab 11/09/18 Cyanocobalamin Vit B-12 Inj. [Vitamin B12 Injection -] 1,000 mcg IM Q7D@1000 vial 11/09/18 Diltiazem Cd [Cardizem Cd -] 180 mg PO DAILY cap.cd.24h 11/09/18 Doxepin HCl [Sinequan -] 25 mg PO HS capsule 11/09/18 Ferrous Sulfate [Feosol] 325 mg PO BID ud 11/09/18 HYDROmorphone [Dilaudid -] 2 mg PO Q4H PRN tablet MDD 6 11/09/18 Insulin Sliding Scale [Novolog Vial Sliding Scale -] 1 vial SQ ACHS units 11/09 Mineral Oil/Petrolat,Wht/Water [Eucerin (Large Jar) -] 1 applic TP BID jar Nystatin Powder [Nystop Powder -] 1 applic TP BID applic 11/09/18 Nystatin Powder [Nystop Powder -] 1 applic TP DAILY applic 11/09/18 Pramipexole Dihydrochloride [Mirapex -] 0.25 mg PO TID tablet 11/09/18 Vitamin B Comp W-C [Nephro-Héctor -] 1 tablet PO DAILY tablet 11/09/18 hydrOXYzine HCL [Atarax -] 10 mg PO Q12H PRN tablet 11/09/18
[2018-11-09] MEDS: FERROUS SO4 325 MG TABLET (FP) PO SCH ×2 (11:26→22:57)
[2018-11-09] MEDS: CYANOCOBALAMIN 1,000 MCG TABLET (FP) PO SCH (11:26)
[2018-11-09] MEDS: ASCORBIC ACID 500 MG TABLET (FP) PO SCH ×2 (11:26→22:57)
[2018-11-09] MEDS: CHOLECALCIFEROL (VITAMIN D3) 1,000 UNIT TABLET (FP) PO SCH (11:27)
[2018-11-09] MEDS: APIXABAN 5 MG TABLET PO SCH ×2 (11:27→22:57)
[2018-11-09] MEDS: VITAMIN B COMP W-C 1 EA TABLET PO SCH (11:28)
[2018-11-09] MEDS: VENLAFAXINE HCL 75 MG E.R. CAPSULES (FP) PO SCH (11:28)
[2018-11-09] MEDS: TOPIRAMATE 100 MG TABLET PO SCH (11:30)
[2018-11-09] MEDS: ZINC OXIDE 20% TOPICAL OINTMENT 30 GM TUBE TP SCH ×2 (11:33→23:06)
[2018-11-09] MEDS: NYSTATIN POWDER 100,000 UNITS/GM - 15 GM TOPICAL POWDER TP SCH ×3 (11:34→23:07)
[2018-11-09] MEDS: MINERAL OIL/PETROLAT/WATER TOPICAL CREAM 454 GM JAR TP SCH ×2 (11:56→23:06)
[2018-11-09] MEDS ORDERED: PT OWN MED DRAWER 7, Y5N ONE ×4 (13:20→22:47)
[2018-11-09] MEDS: hydrOXYzine HCL 10 MG TABLET PO PRN (13:27)
--- NOTE | 2018-11-09 13:52 | PN ---
Progress Note (short form) - Note Progress Note: PULMONARY Denies shortness of breath or chest pain. No fevers recorded. Vital Signs Period Temp Pulse Resp BP Sys/Dan Pulse Ox Last 24 Hr 98.1 F-98.3 F 102-108 18-20 106-112/61-66 98 Gen: breathing nonlabored Heart: RRR Lung: decreased breath sounds at the bases Abd: soft, nontender Ext: no edema CBC, BMP 11/09/18 06:15 11/09/18 06:15 Active Medications Acetaminophen (Tylenol -) 650 mg PO Q6H PRN PRN Reason: FEVER Last Admin: 11/05/18 21:02 Dose: 650 mg Albuterol/Ipratropium (Duoneb -) 1 amp NEB RQID [facility] Last Admin: 11/09/18 08:53 Dose: 1 amp Alprazolam (Xanax -) 0.25 mg PO Q8H PRN PRN Reason: ANXIETY Last Admin: 11/08/18 23:37 Dose: 0.25 mg Apixaban (Eliquis -) 5 mg PO BID [facility] Last Admin: 11/09/18 11:27 Dose: 5 mg Ascorbic Acid (Vitamin C -) 500 mg PO BID [facility] Last Admin: 11/09/18 11:26 Dose: 500 mg Baclofen (Lioresal -) 10 mg PO TID [facility] Last Admin: 11/09/18 05:16 Dose: 10 mg Cholecalciferol (Vitamin D3 -) 1,000 unit PO DAILY [facility] Last Admin: 11/09/18 11:27 Dose: 1,000 unit Cyanocobalamin (Vitamin B12 -) 1,000 mcg PO DAILY [facility] Last Admin: 11/09/18 11:26 Dose: 1,000 mcg Cyanocobalamin (Vitamin B12 Injection -) 1,000 mcg IM Q7D@1000 [facility] Last Admin: 11/07/18 10:45 Dose: 1,000 mcg Diltiazem HCl (Cardizem Cd -) 180 mg PO DAILY [facility] Last Admin: 11/09/18 11:27 Dose: 180 mg Doxepin HCl (Sinequan -) 25 mg PO HS [facility] Last Admin: 11/08/18 21:10 Dose: 25 mg Ferrous Sulfate (Feosol -) 325 mg PO BID [facility] Last Admin: 11/09/18 11:26 Dose: 325 mg Hydromorphone HCl (Dilaudid -) 2 mg PO Q4H PRN PRN Reason: PAIN LEVEL 4 - 6 Last Admin: 11/09/18 05:16 Dose: 2 mg Hydroxyzine HCl (Atarax -) 10 mg PO Q12H PRN PRN Reason: FOR ITCHING Last Admin: 11/09/18 13:27 Dose: 10 mg Insulin Aspart (Novolog Vial Sliding Scale -) 1 vial SQ ACHS [facility]; Protocol Last Admin: 11/09/18 11:55 Dose: Not Given Levothyroxine Sodium (Synthroid -) 50 mcg PO DAILY@0700 [facility] Last Admin: 11/09/18 06:12 Dose: 50 mcg Montelukast Sodium (Singulair -) 10 mg PO [facility] Last Admin: 11/08/18 21:10 Dose: 10 mg Multi-Ingredient Lotion (Eucerin (Large Jar) -) 1 applic TP BID [facility] Last Admin: 11/09/18 11:56 Dose: 1 applic Multi-Ingredient Ointment (Zinc Oxide) 1 applic TP BID [facility] Last Admin: 11/09/18 11:33 Dose: 1 applic Multivit/Ca Carb/B Cmplx/FA/Prenat (Nephro-Héctor -) 1 tablet PO DAILY [facility] Last Admin: 11/09/18 11:28 Dose: 1 tablet Nystatin (Nystop Powder -) 1 applic TP DAILY [facility] Last Admin: 11/09/18 11:35 Dose: Not Given Nystatin (Nystop Powder -) 1 applic TP BID [facility] Last Admin: 11/09/18 11:34 Dose: 1 applic Pramipexole Dihydrochloride (Mirapex -) 0.25 mg PO TID [facility] Last Admin: 11/09/18 05:16 Dose: 0.25 mg Ranitidine HCl (Zantac -) 300 mg PO [facility] Last Admin: 11/08/18 21:10 Dose: 300 mg Rosuvastatin Calcium (Crestor -) 10 mg PO [facility] Last Admin: 11/08/18 21:10 Dose: 10 mg Topiramate (Topamax -) 100 mg PO DAILY [facility] Last Admin: 11/09/18 11:30 Dose: 100 mg Venlafaxine HCl (Effexor Xr -) 75 mg PO DAILY [facility] Last Admin: 11/09/18 11:28 Dose: 75 mg A/P Bacteremia Acute on Chronic Hypoxic Respiratory Failure Asthma/COPD Altered Mental Status Atrial Fibrillation Hypercholesterolemia - continue antibiotics per ID - inhaled bronchodilators - O2 to keep SpO2 >90% - rate control - continue anticoagulation
--- NOTE | 2018-11-09 20:39 | PN ---
Progress Note (short form) - Note Progress Note: NEUROLOGY PROGRESS: Events reviewed. Awaiting placement. Never allowed thoracic MRI scan. Headaches less on Topiramate 100 mg qd Leg pains slightly less severe on pramipexole .25 TID. Much clearer headed. Ox [facility]. Oct 2018. Knows her meds and doses. No change in neuro exam. SUGGEST: Try to increase pramipexole to .5 mg q 8 hrs (with the last dose at HS ) for severe RLS. Follow MS carefully. Condtinue topiramate 100 mg vs migraine. Thank you very much, Everton Mclean MD
[2018-11-09] MEDS: MONTELUKAST NA 10 MG TABLET PO SCH (22:56)
[2018-11-09] MEDS: PRAMIPEXOLE DIHYDROCHLORIDE 0.5 MG TABLET PO SCH (22:56)
[2018-11-09] MEDS: RANITIDINE HCL 150 MG TABLET (FP) PO SCH (22:56)
[2018-11-09] MEDS: DOXEPIN HCL 25 MG CAPSULE PO SCH (22:56)
[2018-11-09] MEDS: ROSUVASTATIN CA 10 MG TABLET (FP) PO SCH (22:56)
[2018-11-10] MEDS ORDERED: PT OWN MED DRAWER 7, Y5N ONE ×4 (05:16→14:34)
[2018-11-10] MEDS: PRAMIPEXOLE DIHYDROCHLORIDE 0.5 MG TABLET PO SCH ×2 (05:18→15:15)
[2018-11-10] MEDS: BACLOFEN 10 MG TABLET (FP) PO SCH ×2 (05:18→15:15)
[2018-11-10] MEDS: INSULIN SLIDING SCALE (NOVOLOG) 1 VIAL SQ SCH ×2 (06:03→12:46)
[2018-11-10] MEDS: LEVOTHYROXINE NA 50 MCG TABLET (FP) PO SCH (06:03)
[2018-11-10] MEDS: ALBUTEROL SO4 2.5/IPRATROPIUM 0.5 INH SOL 3 ML VIAL.NEB. NEB SCH ×2 (08:40→14:29)
[2018-11-10] MEDS ORDERED: VANCOMYCIN 1,000 MG in DEXTROSE 5%-WATER - 250 ML IVPB SCH (10:00)
[2018-11-10] MEDS ORDERED: VANCOMYCIN 1 GRAM (PRE-DOCKED) 1,000 MG/250 ML BAG IVPB SCH (10:00)
[2018-11-10] MEDS ORDERED: ZINC OXIDE 20% TOPICAL OINTMENT 454 GM JAR TP SCH (10:00)
[2018-11-10] MEDS: CHOLECALCIFEROL (VITAMIN D3) 1,000 UNIT TABLET (FP) PO SCH (10:43)
[2018-11-10] MEDS: FERROUS SO4 325 MG TABLET (FP) PO SCH (10:43)
[2018-11-10] MEDS: ASCORBIC ACID 500 MG TABLET (FP) PO SCH (10:43)
[2018-11-10] MEDS: CYANOCOBALAMIN 1,000 MCG TABLET (FP) PO SCH (10:43)
[2018-11-10] MEDS: APIXABAN 5 MG TABLET PO SCH (10:43)
[2018-11-10] MEDS: TOPIRAMATE 100 MG TABLET PO SCH (10:44)
[2018-11-10] MEDS: VITAMIN B COMP W-C 1 EA TABLET PO SCH (10:44)
[2018-11-10] MEDS: ALPRAZolam 0.25 MG TABLET PO PRN (10:44)
[2018-11-10] MEDS: MINERAL OIL/PETROLAT/WATER TOPICAL CREAM 454 GM JAR TP SCH (10:46)
[2018-11-10] MEDS: VENLAFAXINE HCL 75 MG E.R. CAPSULES (FP) PO SCH (10:47)
[2018-11-10] MEDS: NYSTATIN POWDER 100,000 UNITS/GM - 15 GM TOPICAL POWDER TP SCH (10:47)
--- NOTE | 2018-11-10 14:11 | PN ---
Progress Note (short form) - Note Progress Note: PULMONARY Denies shortness of breath or chest pain. No fevers recorded. Vital Signs Period Temp Pulse Resp BP Sys/Dan Pulse Ox Last 24 Hr 98.2 F-98.4 F 104-108 -18 98-106/60-64 Gen: breathing nonlabored Heart: RRR Lung: decreased breath sounds at the bases Abd: soft, nontender Ext: no edema CBC, BMP 11/09/18 06:15 11/09/18 06:15 Active Medications Acetaminophen (Tylenol -) 650 mg PO Q6H PRN PRN Reason: FEVER Last Admin: 11/05/18 21:02 Dose: 650 mg Albuterol/Ipratropium (Duoneb -) 1 amp NEB RQID [facility] Last Admin: 11/10/18 08:40 Dose: 1 amp Alprazolam (Xanax -) 0.25 mg PO Q8H PRN PRN Reason: ANXIETY Last Admin: 11/10/18 10:44 Dose: 0.25 mg Apixaban (Eliquis -) 5 mg PO BID [facility] Last Admin: 11/10/18 10:43 Dose: 5 mg Ascorbic Acid (Vitamin C -) 500 mg PO BID [facility] Last Admin: 11/10/18 10:43 Dose: 500 mg Baclofen (Lioresal -) 10 mg PO TID [facility] Last Admin: 11/10/18 05:18 Dose: 10 mg Cholecalciferol (Vitamin D3 -) 1,000 unit PO DAILY [facility] Last Admin: 11/10/18 10:43 Dose: 1,000 unit Cyanocobalamin (Vitamin B12 -) 1,000 mcg PO DAILY [facility] Last Admin: 11/10/18 10:43 Dose: 1,000 mcg Cyanocobalamin (Vitamin B12 Injection -) 1,000 mcg IM Q7D@1000 [facility] Last Admin: 11/07/18 10:45 Dose: 1,000 mcg Diltiazem HCl (Cardizem Cd -) 180 mg PO DAILY [facility] Last Admin: 11/10/18 10:42 Dose: 180 mg Doxepin HCl (Sinequan -) 25 mg PO HS [facility] Last Admin: 11/09/18 22:56 Dose: 25 mg Ferrous Sulfate (Feosol -) 325 mg PO BID [facility] Last Admin: 11/10/18 10:43 Dose: 325 mg Hydromorphone HCl (Dilaudid -) 2 mg PO Q4H PRN PRN Reason: PAIN LEVEL 4 - 6 Last Admin: 11/09/18 22:56 Dose: 2 mg Hydroxyzine HCl (Atarax -) 10 mg PO Q12H PRN PRN Reason: FOR ITCHING Last Admin: 11/09/18 13:27 Dose: 10 mg Insulin Aspart (Novolog Vial Sliding Scale -) 1 vial SQ [facility]; Protocol Last Admin: 11/10/18 12:46 Dose: Not Given Levothyroxine Sodium (Synthroid -) 50 mcg PO DAILY@0700 [facility] Last Admin: 11/10/18 06:03 Dose: 50 mcg Montelukast Sodium (Singulair -) 10 mg PO [facility] Last Admin: 11/09/18 22:56 Dose: 10 mg Multi-Ingredient Lotion (Eucerin (Large Jar) -) 1 applic TP BID [facility] Last Admin: 11/10/18 10:46 Dose: 1 applic Multi-Ingredient Ointment (Zinc Oxide 20% Topical Oint) 1 gm TP BID [facility] Last Admin: 11/10/18 10:46 Dose: 1 applic Multivit/Ca Carb/B Cmplx/FA/Prenat (Nephro-Héctor -) 1 tablet PO DAILY [facility] Last Admin: 11/10/18 10:44 Dose: 1 tablet Nystatin (Nystop Powder -) 1 applic TP BID [facility] Last Admin: 11/10/18 10:47 Dose: 1 applic Pramipexole Dihydrochloride (Mirapex -) 0.5 mg PO TID [facility] Last Admin: 11/10/18 05:18 Dose: 0.5 mg Ranitidine HCl (Zantac -) 300 mg PO [facility] Last Admin: 11/09/18 22:56 Dose: 300 mg Rosuvastatin Calcium (Crestor -) 10 mg PO [facility] Last Admin: 11/09/18 22:56 Dose: 10 mg Topiramate (Topamax -) 100 mg PO DAILY [facility] Last Admin: 11/10/18 10:44 Dose: 100 mg Vancomycin HCl (Vancomycin (Pre-Docked)) 1,000 mg IVPB DAILY@1000 [facility] Last Admin: 11/10/18 10:42 Dose: 1,000 mg Venlafaxine HCl (Effexor Xr -) 75 mg PO DAILY [facility] Last Admin: 11/10/18 10:47 Dose: 75 mg A/P Bacteremia Acute on Chronic Hypoxic Respiratory Failure Asthma/COPD Altered Mental Status Atrial Fibrillation Hypercholesterolemia - continue antibiotics per ID - inhaled bronchodilators - O2 to keep SpO2 >90% - rate control - continue anticoagulation - d/c planning in progress
--- NOTE | 2018-11-10 15:22 | PN ---
Progress Note, Physician History of Present Illness: Awake, alert, oriented no complaints Afebrile vancomycin trough noted - Current Medication List Current Medications: Active Medications Acetaminophen (Tylenol -) 650 mg PO Q6H PRN PRN Reason: FEVER Last Admin: 11/05/18 21:02 Dose: 650 mg Albuterol/Ipratropium (Duoneb -) 1 amp NEB RQID [facility] Last Admin: 11/10/18 14:29 Dose: 1 amp Alprazolam (Xanax -) 0.25 mg PO Q8H PRN PRN Reason: ANXIETY Last Admin: 11/10/18 10:44 Dose: 0.25 mg Apixaban (Eliquis -) 5 mg PO BID [facility] Last Admin: 11/10/18 10:43 Dose: 5 mg Ascorbic Acid (Vitamin C -) 500 mg PO BID [facility] Last Admin: 11/10/18 10:43 Dose: 500 mg Baclofen (Lioresal -) 10 mg PO TID [facility] Last Admin: 11/10/18 15:15 Dose: 10 mg Cholecalciferol (Vitamin D3 -) 1,000 unit PO DAILY [facility] Last Admin: 11/10/18 10:43 Dose: 1,000 unit Cyanocobalamin (Vitamin B12 -) 1,000 mcg PO DAILY [facility] Last Admin: 11/10/18 10:43 Dose: 1,000 mcg Cyanocobalamin (Vitamin B12 Injection -) 1,000 mcg IM Q7D@1000 [facility] Last Admin: 11/07/18 10:45 Dose: 1,000 mcg Diltiazem HCl (Cardizem Cd -) 180 mg PO DAILY [facility] Last Admin: 11/10/18 10:42 Dose: 180 mg Doxepin HCl (Sinequan -) 25 mg PO HS [facility] Last Admin: 11/09/18 22:56 Dose: 25 mg Ferrous Sulfate (Feosol -) 325 mg PO BID [facility] Last Admin: 11/10/18 10:43 Dose: 325 mg Hydromorphone HCl (Dilaudid -) 2 mg PO Q4H PRN PRN Reason: PAIN LEVEL 4 - 6 Last Admin: 11/09/18 22:56 Dose: 2 mg Hydroxyzine HCl (Atarax -) 10 mg PO Q12H PRN PRN Reason: FOR ITCHING Last Admin: 11/09/18 13:27 Dose: 10 mg Insulin Aspart (Novolog Vial Sliding Scale -) 1 vial SQ ACHS [facility]; Protocol Last Admin: 11/10/18 12:46 Dose: Not Given Levothyroxine Sodium (Synthroid -) 50 mcg PO DAILY@0700 [facility] Last Admin: 11/10/18 06:03 Dose: 50 mcg Montelukast Sodium (Singulair -) 10 mg PO [facility] Last Admin: 11/09/18 22:56 Dose: 10 mg Multi-Ingredient Lotion (Eucerin (Large Jar) -) 1 applic TP BID [facility] Last Admin: 11/10/18 10:46 Dose: 1 applic Multi-Ingredient Ointment (Zinc Oxide 20% Topical Oint) 1 gm TP BID [facility] Last Admin: 11/10/18 10:46 Dose: 1 applic Multivit/Ca Carb/B Cmplx/FA/Prenat (Nephro-Héctor -) 1 tablet PO DAILY [facility] Last Admin: 11/10/18 10:44 Dose: 1 tablet Nystatin (Nystop Powder -) 1 applic TP BID [facility] Last Admin: 11/10/18 10:47 Dose: 1 applic Pramipexole Dihydrochloride (Mirapex -) 0.5 mg PO TID [facility] Last Admin: 11/10/18 15:15 Dose: 0.5 mg Ranitidine HCl (Zantac -) 300 mg PO [facility] Last Admin: 11/09/18 22:56 Dose: 300 mg Rosuvastatin Calcium (Crestor -) 10 mg PO [facility] Last Admin: 11/09/18 22:56 Dose: 10 mg Topiramate (Topamax -) 100 mg PO DAILY [facility] Last Admin: 11/10/18 10:44 Dose: 100 mg Vancomycin HCl (Vancomycin (Pre-Docked)) 1,000 mg IVPB DAILY@1000 [facility] Last Admin: 11/10/18 10:42 Dose: 1,000 mg Venlafaxine HCl (Effexor Xr -) 75 mg PO DAILY [facility] Last Admin: 11/10/18 10:47 Dose: 75 mg - Objective Vital Signs: Vital Signs Temperature 98.4 F 11/10/18 06:00 Pulse Rate 108 H 11/10/18 06:00 Respiratory Rate 18 11/10/18 06:00 Blood Pressure 98/60 11/10/18 06:00 O2 Sat by Pulse Oximetry (%) 98 11/08/18 21:00 Constitutional: Yes: No Distress Eyes: Yes: Conjunctiva Clear Cardiovascular: Yes: Regular Rate and Rhythm, S1, S2 Respiratory: Yes: CTA Bilaterally Gastrointestinal: Yes: Normal Bowel Sounds, Soft. No: Tenderness Edema: No Labs: CBC, BMP 11/09/18 06:15 11/09/18 06:15 Assessment/Plan Polymicrobial bacteremia Toxic metabolic encephalopathy improved + Sputum c/s Pseudomonas likely colonizer Day #14 vancomycin PICC for additional 2wk IV Vancomycin as outpatient
[2018-11-10 15:39] VITALS: BP 100/60; PULSE 106; TEMP 98.1
== END 2018-11-10 15:48 | DRG 871 ==
LOC: JER 14:53 → JERBED 17:06 → J8W 10-30 11:58
PROVIDERS: ADMIT Internal Medicine; ATTEND Family Medicine
PROC: 3E0F7GC Introduction of Other Therapeutic Substance into Respiratory Tract, Via Natural or Artificial Opening (ICD-10-PCS; principal; 2018-11-01)
PROC: 02HV33Z Insertion of Infusion Device into Superior Vena Cava, Percutaneous Approach (ICD-10-PCS; 2018-11-04)
PROC: B518ZZA Fluoroscopy of Superior Vena Cava, Guidance (ICD-10-PCS; 2018-11-04)
DX: R78.81 Bacteremia (principal); J96.21 Acute and chronic respiratory failure with hypoxia; G92 Toxic encephalopathy; J96.22 Acute and chronic respiratory failure with hypercapnia; M46.24 Osteomyelitis of vertebra, thoracic region; J96.10 Chronic respiratory failure, unspecified whether with hypoxia or hypercapnia; G82.20 Paraplegia, unspecified; N39.0 Urinary tract infection, site not specified; F11.20 Opioid dependence, uncomplicated; J44.9 Chronic obstructive pulmonary disease, unspecified; G25.81 Restless legs syndrome; I48.0 Paroxysmal atrial fibrillation; F31.9 Bipolar disorder, unspecified; K21.9 Gastro-esophageal reflux disease without esophagitis; E03.9 Hypothyroidism, unspecified; E11.40 Type 2 diabetes mellitus with diabetic neuropathy, unspecified; E78.00 Pure hypercholesterolemia, unspecified; T40.695A Adverse effect of other narcotics, initial encounter; R00.0 Tachycardia, unspecified; M54.5 Low back pain; F41.8 Other specified anxiety disorders; D64.9 Anemia, unspecified; K59.00 Constipation, unspecified; B95.62 Methicillin resistant Staphylococcus aureus infection as the cause of diseases classified elsewhere; G47.00 Insomnia, unspecified; D49.2 Neoplasm of unspecified behavior of bone, soft tissue, and skin; E66.9 Obesity, unspecified; G72.89 Other specified myopathies; M25.262 Flail joint, left knee; R21 Rash and other nonspecific skin eruption; G89.4 Chronic pain syndrome; R41.82 Altered mental status, unspecified; Z93.0 Tracheostomy status; Z87.891 Personal history of nicotine dependence; Z99.81 Dependence on supplemental oxygen; Z86.19 Personal history of other infectious and parasitic diseases; Z85.42 Personal history of malignant neoplasm of other parts of uterus; Z16.35 Resistance to multiple antimicrobial drugs; Z68.26 Body mass index [BMI] 26.0-26.9, adult
CPT/HCPCS: 36415; 36569; 36600; 70450-TC; 70551-TC; 71045-TC-FY; 73630-TC-LT; 77001-TC-FY; 80048; 80053; 81003; 81015; 82550; 82607; 82728; 82803; 82962; 83036; 83540; 83550; 83735; 83880; 84439; 84443; 84484; 85025; 87040; 87070; 87086; 87186; 87205; 93005; 93010; 94640; 97161-GP; 99281-25; 99283-25; C1751; G0480; J0475

== ENCOUNTER 2018-12-12 13:52 | Inpatient (IN) | payer OTHER ==
[2018-12-12] MEDS ORDERED: ACETAMINOPHEN 1000 MG/100 ML VIAL (NON FORMULARY) IVPB ONE ×2 (14:41→23:36)
[2018-12-12] MEDS ORDERED: LACTATED RINGERS SOLUTION 1000 ML INFUS.BAG IV ONE (14:43)
--- NOTE | 2018-12-12 14:59 | PDOC ---
History of Present Illness - General Chief Complaint: SIRS, Suspected/Possible Stated Complaint: TRACH PROBLEM Time Seen by Provider: 12/12/18 14:42 History Source: EMS, Intermediate Records, Old Records Exam Limitations: Other (nonverbal) - History of Present Illness Initial Comments: 12/12/18 14:52 53YOF with h/o chronic trach use, COPD, respiratory failure, UTI, HTN, HLD, A- fib (on Eliquis), IDDM, decubitus ulcer, hypothyroidism, chronic pain, depression, and anxiety; BIBEMS for altered mental statu, fever, and report of drainage from her trach tube from her SNF [facility]. She is full code per her SNF advance directive paperwork. The patient herself is altered, intermittently somnolent, unable to speak, and unable to provide medical history. SNF notes states there was a small amount of thick malodorous trach site secretions, temp up to 102.9, pulse 113. Past History - Past Medical History Allergies/Adverse Reactions: Allergies Allergy/AdvReac Type Severity Reaction Status Date / Time oxycodone [Oxycodone] Allergy Severe Nausea Verified 12/12/18 18:55 oxycodone HCl [From Percocet] Allergy Severe Nausea Verified 12/12/18 18:55 aspirin Allergy Mild Verified 12/12/18 18:55 blueberry [Blueberry] Allergy Mild Swelling Verified 12/12/18 18:55 fentanyl Allergy Mild Vomiting Verified 12/12/18 18:55 ibuprofen Allergy Swelling Verified 12/12/18 18:55 aspartame AdvReac Mild Itching Verified 12/12/18 18:55 Home Medications: Ambulatory Orders Albuterol Sulfate Inhaler - [Ventolin HFA Inhaler -] 2 puff IH Q4H PRN #0 inhaler 11/29/16 Acetaminophen [Tylenol .Regular Strength -] 650 mg PO Q6H PRN #0 tablet Apixaban [Eliquis -] 5 mg PO BID tablet 04/29/17 Baclofen 10 mg PO TID 07/09/18 Levothyroxine [Synthroid -] 50 mcg PO DAILY 07/09/18 Rosuvastatin Calcium [Crestor] 10 mg PO DAILY 07/09/18 Montelukast Na [Singulair -] 10 mg PO HS 08/07/18 Topiramate [Topamax -] 100 mg PO DAILY #30 tablet 08/15/18 Alprazolam [Xanax] 0.25 mg PO Q8H PRN tablet MDD 3 10/23/18 Cholecalciferol (Vitamin D3) [Vitamin D3 -] 1,000 unit PO DAILY tab 11/09/18 Cyanocobalamin Vit B-12 Inj. [Vitamin B12 Injection -] 1,000 mcg IM Q7D@1000 vial 11/09/18 Diltiazem Cd [Cardizem Cd -] 180 mg PO DAILY cap.cd.24h 11/09/18 Doxepin HCl [Sinequan -] 25 mg PO HS capsule 11/09/18 Ferrous Sulfate [Feosol] 325 mg PO BID ud 11/09/18 Nystatin Powder [Nystop Powder -] 1 applic TP DAILY applic 11/09/18 HYDROmorphone [Dilaudid -] 2 mg PO Q4H PRN 12/12/18 Insulin Sliding Scale [Novolog Vial Sliding Scale -] 0 units SQ TIDAC 12/12/18 Loperamide HCl [Loperamide] 2 mg PO HS PRN 12/12/18 Potassium Chloride 20 meq PO DAILY 12/12/18 Pramipexole Di-HCl [Mirapex] 0.5 mg PO TID 12/12/18 Ranitidine [Zantac -] 150 mg PO DAILY 12/12/18 Venlafaxine HCl ER [Effexor Xr -] 75 mg PO DAILY 12/12/18 Vitamin B Comp W-C [Nephro-Héctor -] 1 tablet PO DAILY 12/12/18 hydrOXYzine HCL [Atarax -] 10 mg PO BID PRN 12/12/18 Anemia: Yes Asthma: Yes (COPD, trach #8) Cancer: Yes (UTERINE) Cardiac Disorders: Yes (A-fib) CVA: No COPD: Yes CHF: No Dementia: No Diabetes: Yes GI Disorders: Yes (colitis, SB resection, GERD) Disorders: Yes (KIDNEY STENTS) HTN: Yes Hypercholesterolemia: Yes Liver Disease: No Psychiatric Problems: Yes (ANXIETY) Seizures: Yes (5 yrs ago) Thyroid Disease: No - Surgical History Abdominal Surgery: Yes (BOWEL RESECTION) Appendectomy: Yes (1998) Cardiac Surgery: No Cholecystectomy: No Lung Surgery: No Neurologic Surgery: No Orthopedic Surgery: Yes (Back Sx T7,6) - Immunization History Td Vaccination: Yes TDAP Vaccination: Yes Immunization Up to Date: Yes - Suicide/Smoking/Psychosocial Hx Smoking Status: No Smoking History: Former smoker Have you smoked in the past 12 months: No Number of Cigarettes Smoked Daily: 3 If you are a former smoker, when did you quit?: 1997 Information on smoking cessation initiated: No 'Breaking Loose' booklet given: 03/12/15 Hx Alcohol Use: No Drug/Substance Use Hx: No Substance Use Type: None Hx Substance Use Treatment: No Review of Systems - Review of Systems Able to Perform ROS?: No (altered) *Physical Exam - Vital Signs Last Vital Signs Temp Pulse Resp BP Pulse Ox 101.7 F H 144 H 22 H 96/61 100 12/12/18 14:29 12/12/18 14:29 12/12/18 14:29 12/12/18 14:29 12/12/18 14:29 - Physical Exam Comments: GENERAL: intermittently somnolent, awakens to touch and to loud voice, trached and unable to answer questions, pickwickian appearance, cachectic HEENT: PERRLA, EOMI, dry mucous membranes, lips cracked and with dried blood NECK/BACK: trach tube in place with occasional mucousy secretion which needs to be suctioned, no spinal stepoff or deformity, no hematoma, neck supple CARDIOVASCULAR: rapid regular rate up to 140s during my exam, normal S1S2, no MGR, capillary refill <2 seconds, extremities wwp, no edema LUNGS/RESPIRATORY: nononlabored respirations, lungs CTAB GI/ABDOMEN: symmetric [id number], normoactive BS, soft, no midline pulsatile masses, no organomegaly : normal external appearance, no lesions, no swelling, non-malodorous EXTREMITIES: chronic appearing diffuse extremity muscle atrophy, no acute deformity, no edema SKIN: warm and dry, no pallor, no jaundice, no rash NEUROLOGICAL: CN II-XII grossly intact, no obvious facial droop, otherwise patient not following commands Moderate Sedation - Procedure Monitoring Vital Signs: Procedure Monitoring Vital Signs Temperature 101.7 F H 12/12/18 14:29 Pulse Rate 144 H 12/12/18 14:29 Respiratory Rate 22 H 12/12/18 14:29 Blood Pressure 96/61 12/12/18 14:29 O2 Sat by Pulse Oximetry (%) 100 12/12/18 14:29 Heart Score/ECG Review #1 12/12/18 15:28 Sinus tachycardia, 142, normal axis and intervals, no ischemic changes. ED Treatment Course - LABORATORY CBC & Chemistry Diagram: 12/13/18 12:35 12/13/18 06:30 Medical Decision Making - Medical Decision Making 12/12/18 15:15 Pt with tracheostomy p/w apparent tracheostomy complication. Initial Vital Signs Temp Pulse Resp BP Pulse Ox 101.7 F H 144 H 22 H 96/61 100 12/12/18 14:29 12/12/18 14:29 12/12/18 14:29 12/12/18 14:29 12/12/18 14:29 Exam: As noted in Physical Exam section. DDX IBNLT: PNA, bronchitis, trach tube occlusion (e.g. excessive mucus/ secretions, FB), hemoptysis (e.g. from PNA, TB, lung CA or mets), UTI W/U ordered: Labs as noted below TX ordered: supplemental O2, IVF, Ofirmev EKG: Reviewed; results as noted in ECG Review section. CXR: Laboratory Tests 12/12/18 12/12/18 12/12/18 15:04 15:06 15:14 WBC 19.9 H RBC 3.41 L Hgb 11.0 Hct 35.0 D MCV 102.5 H MCH 32.4 D MCHC 31.5 L RDW 20.2 H Plt Count 284 MPV 9.3 Absolute Neuts (auto) 17.5 H Neutrophils % 88.0 H Lymphocytes % 7.1 L D Monocytes % 3.9 Eosinophils % 0.7 D Basophils % 0.3 Nucleated RBC % 0 PT with INR INR PTT (Actin FS) VBG pH POC VBG pCO2 POC VBG pO2 Mixed VBG HCO3 Sodium Potassium Chloride Carbon Dioxide Anion Gap BUN Creatinine Creat Clearance w eGFR POC Glucometer [id number] Random Glucose Lactic Acid Calcium Total Bilirubin AST ALT Alkaline Phosphatase Troponin I Total Protein Albumin Urine Color Urine Appearance Urine pH Ur Specific [place] Urine Protein Urine Glucose (UA) Urine Ketones Urine Blood Urine Nitrite Urine Bilirubin Urine Urobilinogen Ur Leukocyte Esterase Urine WBC (Auto) Urine RBC (Auto) Urine Bacteria Urine Mucus Influenza A (Rapid) Negative Influenza B (Rapid) Negative 12/12/18 12/12/18 12/12/18 15:14 15:14 15:14 WBC RBC Hgb Hct MCV MCH MCHC RDW Plt Count MPV Absolute Neuts (auto) Neutrophils % Lymphocytes % Monocytes % Eosinophils % Basophils % Nucleated RBC % PT with INR 41.20 H INR 3.45 H PTT (Actin FS) 48.2 H VBG pH 7.30 L D POC VBG pCO2 44.0 POC VBG pO2 35.8 D Mixed VBG HCO3 21.1 Sodium 144 Potassium 5.5 H Chloride 113 H Carbon Dioxide 22 Anion Gap 9 BUN 8 Creatinine 1.6 H Creat Clearance w eGFR 33.98 POC Glucometer Random Glucose 136 H Lactic Acid Calcium 8.6 Total Bilirubin 1.1 H AST 103 H ALT 44 Alkaline Phosphatase 300 H Troponin I Total Protein 7.0 Albumin 2.3 L Urine Color Urine Appearance Urine pH Ur Specific [place] Urine Protein Urine Glucose (UA) Urine Ketones Urine Blood Urine Nitrite Urine Bilirubin Urine Urobilinogen Ur Leukocyte Esterase Urine WBC (Auto) Urine RBC (Auto) Urine Bacteria Urine Mucus Influenza A (Rapid) Influenza B (Rapid) 12/12/18 12/12/18 12/12/18 15:14 15:14 16:00 WBC RBC Hgb Hct MCV MCH MCHC RDW Plt Count MPV Absolute Neuts (auto) Neutrophils % Lymphocytes % Monocytes % Eosinophils % Basophils % Nucleated RBC % PT with INR INR PTT (Actin FS) VBG pH POC VBG pCO2 POC VBG pO2 Mixed VBG HCO3 Sodium Potassium Chloride Carbon Dioxide Anion Gap BUN Creatinine Creat Clearance w eGFR POC Glucometer Random Glucose Lactic Acid 1.7 Calcium Total Bilirubin AST ALT Alkaline Phosphatase Troponin I < 0.02 Total Protein Albumin Urine Color [place] Urine Appearance Turbid Urine pH 5.0 Ur Specific [place] 1.018 Urine Protein 2+ H Urine Glucose (UA) Negative Urine Ketones Negative Urine Blood 1+ H Urine Nitrite Negative Urine Bilirubin Negative Urine Urobilinogen Negative Ur Leukocyte Esterase 2+ H Urine WBC (Auto) 1154 Urine RBC (Auto) 18 Urine Bacteria Rare Urine Mucus Moderate Influenza A (Rapid) Influenza B (Rapid) Reassessment: Patient still somnolent but arousable. Repeat BP is 82/50 (MAP 60) after 1.5 liters. 12/12/18 18:25 The Pt is unsafe for discharge at this time. They require further hospital observation, workup, and treatment. Microblog sent to [facility] for admission. Page sent to ICU on-call phone. Blank Decision to Admit order is placed per ED protocol. 12/12/18 18:38 I spoke with ICU guest relations coordinator - they will come down to assess the patient and decide on acceptance. 12/12/18 19:06 Patient awakened and repeat BP is 95/63 at this time. Patient may be appropriate for inpatient tele admission instead of ICU. Awaiting ICU night team evaluation and then will make dispo decision. Will continue fluid resuscitation. 12/12/18 19:30 Now MAP is consistently above 70, in agreement patient likely appropriate for Tele. I have spoken with BUSINESS ARCHITECT Brie Guy; plan is for IP Telemetry unless pressure becomes unstable. Decision to Admit order placed with Dr. Goel's name per her request. ICU team still to come down and fully evaluate the patient. I have informed Dr. Reveles of the patient and situation. *DC/Admit/Observation/Transfer Diagnosis at time of Disposition: LEEANNA (acute kidney injury) Sepsis Qualifiers: Sepsis type: sepsis due to unspecified organism Qualified Code(s): A41.9 - Sepsis, unspecified organism UTI (urinary tract infection) Qualifiers: Urinary tract infection type: acute cystitis Hematuria presence: without hematuria Qualified Code(s): N30.00 - Acute cystitis without hematuria - Discharge Dispostion Condition at time of disposition: Guarded Decision to Admit order: Yes - Referrals - Patient Instructions - Post Discharge Activity
[2018-12-12] MEDS ORDERED: ACETAMINOPHEN INJECTION 100 ML IVPB ONE ×2 (15:02→23:57)
[2018-12-12 15:21] LABS: BASO % 0.3 % (0-2.0); EOS % 0.7 % (0-4.5); LYMPH % 7.1 % (8-40); MCH 32.4 pg (25.7-33.7); MCHC 31.5 g/dl (32.0-36.0); MEAN CELL VOLUME 102.5 fl (80-96); MEAN PLT VOLUME 9.3 fl (7.5-11.1); MONO % 3.9 % (3.8-10.2); PLATELET COUNT 284 K/MM3 (134-434); RBC 3.41 M/mm3 (3.60-5.2); RDW 20.2 % (11.6-15.6); VENOUS PH 7.3 (7.32-7.42); VENOUS PO2 35.8 mmHg (28-48); WHITE BLOOD COUNT 19.9 K/mm3 (4.0-10.0)
[2018-12-12 15:45] LABS: ALBUMIN 2.3 g/dl (3.4-5.0); ALK PHOS 300 U/L (45-117); ANION GAP 9 MMOL/L (8-16); BILIRUBIN,TOTAL 1.1 mg/dL (0.2-1); BLOOD UREA NITROGEN 8 mg/dL (7-18); CALCIUM 8.6 mg/dL (8.5-10.1); CHLORIDE 113 mmol/L (98-107); CO2 22 mmol/L (21-32); CREATININE 1.6 mg/dL (0.55-1.3); GLUCOSE,RANDOM 136 mg/dL (74-106); POTASSIUM 5.5 mmol/L (3.5-5.1); SGOT/AST 103 U/L (15-37); SGPT/ALT 44 U/L (13-61); SODIUM 144 mmol/L (136-145)
[2018-12-12 15:49] LABS: INR 3.45 (0.83-1.09); PROTHROMBIN TIME (PATIENT) 41.2 SEC (9.7-13.0)
[2018-12-12 15:51] LABS: ACTIVATED PTT 48.2 SECONDS (25.2-36.5)
[2018-12-12] MEDS ORDERED: PIPERACILLIN/TAZOB 4.5 GM 4.5 GM in DEXTROSE 5%-WATER 100 ML IVPB ONE (15:59)
[2018-12-12] MEDS ORDERED: SODIUM CHLORIDE 0.9% 500 ML INFUS.BAG IV ONE ×2 (16:01→18:40)
[2018-12-12] MEDS ORDERED: PIPERACILLIN/TAZOB 4.5 GM 4.5 GM/100 ML BAG IVPB ONE (16:01)
--- NOTE | 2018-12-12 16:01 | PDOC ---
Attending Attestation - Resident Resident Name: Anais Foreman - ED Attending Attestation I have performed the following: I have examined & evaluated the patient, The case was reviewed & discussed with the resident, I agree w/resident's findings & plan, Exceptions are as noted - HPI HPI: 12/12/18 16:05 The patient is a 53 year old female with a significant past medical history of HTN, COPD, respiratory failure s/p trach, A-fib IDDM, Hypothyroidism, Bipolar Disorder, recent hospitalization on 10/29/2018 (discharged yesterday for multi- organism bacteremia requiring IV abx via PICC line) who was brought in by EMS from [facility] who presents with fever, altered mental status, and drainage from Trach tube. Pt denies cp, sob, coughing, abd pain, focal weakness or numbness, headache. PCP: Dr. Goel - Physicial Exam PE: 12/12/18 16:06 agree with resident exam - Medical Decision Making 12/12/18 16:08 53yo F with MMP including trach, frequent sepsis presents to the ED with sepsis. Unclear source at this time but lungs are clear. Possible UTI vs viral syndrome. Plan for full septic w/u, empiric abx (previous mrsa and pseudomonas) , and admit. 12/12/18 18:23 UA positive for UTI, likely urosepsis Pt covered with vanc and zosyn, has history of e coli esbl that is sensitive to zosyn BP 87/60, MAP 60, pt is mcc through 2nd liter IVF Will recheck BP after second liter fluids IF remains low, will consider central line and levophed Will consult ICU at this time for admission. Heart Score/ECG Review - [place] Comment: 12/12/18 16:09 Twelve-lead EKG was performed and reviewed by me. Sinus tachycardia, rate 140. Normal axis. No ST elevations.
[2018-12-12 16:14] LABS: URINE APPEARANCE TURBID; URINE BILIRUBIN NEGATIVE (<2.0 mg/dL); URINE COLOR AMBER; URINE GLUCOSE (UA) NEGATIVE (NEGATIVE); URINE KETONE NEGATIVE (NEGATIVE); URINE LEUK ESTERASE 2+ (NEGATIVE); URINE NITRITE NEGATIVE (NEGATIVE); URINE PROTEIN 2+ (NEGATIVE); URINE UROBILINOGEN NEGATIVE mg/dL (0.2-1.0)
[2018-12-12 16:44] LABS: URINE BACTERIA RARE /hpf (NONE SEEN); URINE MUCUS MODERATE
--- NOTE | 2018-12-12 18:27 | EKG ---
Test Reason : Blood Pressure : / mmHG Vent. Rate : 142 BPM Atrial Rate : 142 BPM P-R Int : 126 ms QRS Dur : 074 ms QT Int : 272 ms P-R-T Axes : 033 070 028 degrees QTc Int : 418 ms SINUS TACHYCARDIA OTHERWISE NORMAL ECG WHEN COMPARED WITH ECG OF 02-NOV-2018 09:26, VENT. RATE HAS DECREASED Confirmed by SERA RENTERIA MD ([id number]) on 12/12/2018 6:27:02 PM Referred By: Confirmed By:SERA RENTERIA MD
--- NOTE | 2018-12-12 20:06 | HP ---
Admitting History and Physical - Primary Care Physician PCP: Manolo Jaquez - Admission Chief Complaint: AMS, Fever History of Present Illness: This is a 53 y/o woman with a PMHx of: Chronic Respiratory Failure, Tracheostomy , Asthma, COPD, O2 Dep, HTN, A-fib (on Eliquis), HLD, Hypothyroidism, DM, GI Bleed, Uterine Ca, Renal Stents, Bipolar, Depression, Chronic Pain, Decubitus Ulcer. Who presents to the ED for AMS, Fever 102.0. Patient at bedside, was lethargic, unable to provide HPI. Per ED records: BIBEMS for altered mental status, fever, and report of drainage from her trach tube from her SN[facility]. She is full code per her SNF advance directive paperwork. The patient herself is altered, intermittently somnolent, unable to speak, and unable to provide medical history. SNF notes states there was a small amount of thick malodorous trach site secretions, temp up to 102.9, pulse 113. ED Course noted for: 1. Sepsis- T Max 101.7, WBC 19.9, BP 88/65 2. UA- +2 Protein, +1 blood, +2 leukocyte esterase, WBC 1154 3. EKG- ST 142 4. K- 5.5 given Kayexalate History Source: Medical Record, Transfer Record Limitations to Obtaining History: Clinical Condition - Past Medical History Cardiovascular: Yes: AFIB (Paroxysmal), HTN, Hyperlipdemia Pulmonary: Yes: Asthma, COPD, O2 Dependent, Previously Intubated, Other (Trach) Gastrointestinal: Yes: GI Bleed Renal/: Yes: Cancer (Uterine), Other ([place] in the past) Heme/Onc: Yes: Other (BCA, Uterine Ca) Infectious Disease: Yes: C-Diff (june 2014), Other (Osteomyelitis of thoracic spine) Psych: Yes: Anxiety, Bipolar, Depression Musculoskeletal: Yes: Chronic low back pain, Other (multiple vertebral fractures ) Endocrine: Yes: Diabetes Mellitus, Hypothyroidism - Past Surgical History Past Surgical History: Yes: Appendectomy, Colectomy (By description, right colon resection with anastamosis noted on colonoscopy 2013), Hysterectomy (ADE/ BSO), Stent - Smoking History Smoking history: Former smoker Have you smoked in the past 12 months: No Aproximately how many cigarettes per day: 3 If you are a former smoker, when did you quit?: 1997 - Alcohol/Substance Use Hx Alcohol Use: No History of Substance Use: reports: Prescription - Social History Usual Living Arrangement: Yes: Half-Way 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) History of Recent Travel: No Home Medications - Allergies Allergies/Adverse Reactions: Allergies Allergy/AdvReac Type Severity Reaction Status Date / Time oxycodone [Oxycodone] Allergy Severe Nausea Verified 12/12/18 18:55 oxycodone HCl [From Percocet] Allergy Severe Nausea Verified 12/12/18 18:55 aspirin Allergy Mild Verified 12/12/18 18:55 blueberry [Blueberry] Allergy Mild Swelling Verified 12/12/18 18:55 fentanyl Allergy Mild Vomiting Verified 12/12/18 18:55 ibuprofen Allergy Swelling Verified 12/12/18 18:55 aspartame AdvReac Mild Itching Verified 12/12/18 18:55 - Home Medications Home Medications: Ambulatory Orders Albuterol Sulfate Inhaler - [Ventolin HFA Inhaler -] 2 puff IH Q4H PRN #0 inhaler 11/29/16 Acetaminophen [Tylenol .Regular Strength -] 650 mg PO Q6H PRN #0 tablet Apixaban [Eliquis -] 5 mg PO BID tablet 04/29/17 Baclofen 10 mg PO TID 07/09/18 Levothyroxine [Synthroid -] 50 mcg PO DAILY 07/09/18 Rosuvastatin Calcium [Crestor] 10 mg PO DAILY 07/09/18 Montelukast Na [Singulair -] 10 mg PO HS 08/07/18 Topiramate [Topamax -] 100 mg PO DAILY #30 tablet 08/15/18 Alprazolam [Xanax] 0.25 mg PO Q8H PRN tablet MDD 3 10/23/18 Cholecalciferol (Vitamin D3) [Vitamin D3 -] 1,000 unit PO DAILY tab 11/09/18 Cyanocobalamin Vit B-12 Inj. [Vitamin B12 Injection -] 1,000 mcg IM Q7D@1000 vial 11/09/18 Diltiazem Cd [Cardizem Cd -] 180 mg PO DAILY cap.cd.24h 11/09/18 Doxepin HCl [Sinequan -] 25 mg PO HS capsule 11/09/18 Ferrous Sulfate [Feosol] 325 mg PO BID ud 11/09/18 Nystatin Powder [Nystop Powder -] 1 applic TP DAILY applic 11/09/18 HYDROmorphone [Dilaudid -] 2 mg PO Q4H PRN 12/12/18 Insulin Sliding Scale [Novolog Vial Sliding Scale -] 0 units SQ TIDAC 12/12/18 Loperamide HCl [Loperamide] 2 mg PO HS PRN 12/12/18 Potassium Chloride 20 meq PO DAILY 12/12/18 Pramipexole Di-HCl [Mirapex] 0.5 mg PO TID 12/12/18 Ranitidine [Zantac -] 150 mg PO DAILY 12/12/18 Venlafaxine HCl ER [Effexor Xr -] 75 mg PO DAILY 12/12/18 Vitamin B Comp W-C [Nephro-Héctor -] 1 tablet PO DAILY 12/12/18 hydrOXYzine HCL [Atarax -] 10 mg PO BID PRN 12/12/18 Family Disease History - Family Disease History Family Disease History: Diabetes: Mother (Alive: heart surgery), Heart Disease: Mother, [place]: Father (: leukemia), Other: Brother (2,Healthy), Sister (1, Healthy) Review of Systems Unable to obtain ROS, reason: AMS Physical Examination Vital Signs: Vital Signs Temperature 101.7 F H 12/12/18 14:29 Pulse Rate 103 H 12/12/18 17:06 Respiratory Rate 20 12/12/18 17:06 Blood Pressure 90/64 12/12/18 17:06 O2 Sat by Pulse Oximetry (%) 100 12/12/18 17:06 Constitutional: Yes: Poor Hygeine (oral mucousa- dry crusted secretions), Other (Lethargy) Eyes: Yes: Conjunctiva Clear, PERRL HENT: Yes: Atraumatic, Normocephalic, Other (dry mucousa) Neck: Yes: Supple, Other (trach with collar- thick brownish secretions) Cardiovascular: Yes: Tachycardia, S1, S2 Respiratory: Yes: Rhonchi (coarse), Wheezes (scattered), Other (trach with collar) Gastrointestinal: Yes: Normal Bowel Sounds, Soft, Abdomen, Obese Renal/: Yes: Incontinence Breast(s): Yes: WNL Edema: No Peripheral Pulses WNL: Yes Neurological: Yes: Confusion, Lethargy Labs: CBC, BMP 12/12/18 15:14 12/12/18 15:14 Laboratory Results - last 24 hr 12/12/18 12/12/18 12/12/18 15:04 15:06 15:14 WBC 19.9 H RBC 3.41 L Hgb 11.0 Hct 35.0 D MCV 102.5 H MCH 32.4 D MCHC 31.5 L RDW 20.2 H Plt Count 284 MPV 9.3 Absolute Neuts (auto) 17.5 H Neutrophils % 88.0 H Lymphocytes % 7.1 L D Monocytes % 3.9 Eosinophils % 0.7 D Basophils % 0.3 Nucleated RBC % 0 PT with INR INR PTT (Actin FS) VBG pH POC VBG pCO2 POC VBG pO2 Mixed VBG HCO3 Sodium Potassium Chloride Carbon Dioxide Anion Gap BUN Creatinine Creat Clearance w eGFR POC Glucometer [phone] Random Glucose Lactic Acid Calcium Total Bilirubin AST ALT Alkaline Phosphatase Ammonia Troponin I Total Protein Albumin Urine Color Urine Appearance Urine pH Ur Specific [place] Urine Protein Urine Glucose (UA) Urine Ketones Urine Blood Urine Nitrite Urine Bilirubin Urine Urobilinogen Ur Leukocyte Esterase Urine WBC (Auto) Urine RBC (Auto) Urine Bacteria Urine Mucus Influenza A (Rapid) Negative Influenza B (Rapid) Negative 12/12/18 12/12/18 12/12/18 15:14 15:14 15:14 WBC RBC Hgb Hct MCV MCH MCHC RDW Plt Count MPV Absolute Neuts (auto) Neutrophils % Lymphocytes % Monocytes % Eosinophils % Basophils % Nucleated RBC % PT with INR 41.20 H INR 3.45 H PTT (Actin FS) 48.2 H VBG pH 7.30 L D POC VBG pCO2 44.0 POC VBG pO2 35.8 D Mixed VBG HCO3 21.1 Sodium 144 Potassium 5.5 H Chloride 113 H Carbon Dioxide 22 Anion Gap 9 BUN 8 Creatinine 1.6 H Creat Clearance w eGFR 33.98 POC Glucometer Random Glucose 136 H Lactic Acid Calcium 8.6 Total Bilirubin 1.1 H AST 103 H ALT 44 Alkaline Phosphatase 300 H Ammonia Troponin I Total Protein 7.0 Albumin 2.3 L Urine Color Urine Appearance Urine pH Ur Specific [place] Urine Protein Urine Glucose (UA) Urine Ketones Urine Blood Urine Nitrite Urine Bilirubin Urine Urobilinogen Ur Leukocyte Esterase Urine WBC (Auto) Urine RBC (Auto) Urine Bacteria Urine Mucus Influenza A (Rapid) Influenza B (Rapid) 12/12/18 12/12/18 12/12/18 15:14 15:14 16:00 WBC RBC Hgb Hct MCV MCH MCHC RDW Plt Count MPV Absolute Neuts (auto) Neutrophils % Lymphocytes % Monocytes % Eosinophils % Basophils % Nucleated RBC % PT with INR INR PTT (Actin FS) VBG pH POC VBG pCO2 POC VBG pO2 Mixed VBG HCO3 Sodium Potassium Chloride Carbon Dioxide Anion Gap BUN Creatinine Creat Clearance w eGFR POC Glucometer Random Glucose Lactic Acid 1.7 Calcium Total Bilirubin AST ALT Alkaline Phosphatase Ammonia Troponin I < 0.02 Total Protein Albumin Urine Color Taylor Urine Appearance Turbid Urine pH 5.0 Ur Specific [place] 1.018 Urine Protein 2+ H Urine Glucose (UA) Negative Urine Ketones Negative Urine Blood 1+ H Urine Nitrite Negative Urine Bilirubin Negative Urine Urobilinogen Negative Ur Leukocyte Esterase 2+ H Urine WBC (Auto) 1154 Urine RBC (Auto) 18 Urine Bacteria Rare Urine Mucus Moderate Influenza A (Rapid) Influenza B (Rapid) 12/13/18 12/13/18 01:27 01:27 WBC RBC Hgb Hct MCV MCH MCHC RDW Plt Count MPV Absolute Neuts (auto) Neutrophils % Lymphocytes % Monocytes % Eosinophils % Basophils % Nucleated RBC % PT with INR INR PTT (Actin FS) VBG pH POC VBG pCO2 POC VBG pO2 Mixed VBG HCO3 Sodium Potassium Chloride Carbon Dioxide Anion Gap BUN Creatinine Creat Clearance w eGFR POC Glucometer Random Glucose Lactic Acid 1.3 Calcium Total Bilirubin AST ALT Alkaline Phosphatase Ammonia 62.40 H Troponin I Total Protein Albumin Urine Color Urine Appearance Urine pH Ur Specific [place] Urine Protein Urine Glucose (UA) Urine Ketones Urine Blood Urine Nitrite Urine Bilirubin Urine Urobilinogen Ur Leukocyte Esterase Urine WBC (Auto) Urine RBC (Auto) Urine Bacteria Urine Mucus Influenza A (Rapid) Influenza B (Rapid) Imaging - Results Chest X-ray: Report Reviewed, Image Reviewed Cat Scan: Report Reviewed, Image Reviewed EKG: Image Reviewed Problem List - Problems (1) Sepsis Assessment/Plan: Likely secondary to UTI Continue cardiac monitoring qSOFA 3 Sepsis Criteria Met IV- T Max 101.7, WBC 19.9, R 24, BP 88/65 UA showed +2 leukocyte esterase, +1 blood, 1154 WBCs Urine culture-pending Zosyn started in ED, will continue Fluid resuscitation given in ED Will continue gentle IVF concern for fluid overload Appreciate ID consult Monitor CBC, BMP Maintain MAP> 65 Will hold BP meds for now secondary to hypotension Continue O2 with Trach Collar Tylenol prn Code(s): A41.9 - SEPSIS, UNSPECIFIED ORGANISM Qualifiers: Sepsis type: sepsis due to unspecified organism Qualified Code(s): A41.9 - Sepsis, unspecified organism (2) UTI (urinary tract infection) Assessment/Plan: Urine Culture pending Zosyn given in ED, will continue Appreciate ID consult Monitor CBC Monitor vitals Code(s): N39.0 - URINARY TRACT INFECTION, SITE NOT SPECIFIED Qualifiers: Urinary tract infection type: acute cystitis Hematuria presence: without hematuria Qualified Code(s): N30.00 - Acute cystitis without hematuria (3) Acute metabolic encephalopathy Assessment/Plan: Likely secondary to Sepsis, UTI Fall Precautions Neurochecks Monitor CBC Monitor Vitals Will add Ammonia level Code(s): G93.41 - METABOLIC ENCEPHALOPATHY (4) Acute and chronic respiratory failure Assessment/Plan: stable Continue home meds Appreciate Pulmonology consult Duonebs O2 via trach w collar Code(s): J96.20 - ACUTE AND CHR RESP FAILURE, UNSP W HYPOXIA OR HYPERCAPNIA Qualifiers: (5) Hypothyroid Assessment/Plan: Continue Levothyroxine Monitor TSH Code(s): E03.9 - HYPOTHYROIDISM, UNSPECIFIED Qualifiers: (6) Restless leg syndrome Assessment/Plan: Will hold Mirapex for now secondary to Metabolic Encephalopathy Continue to monitor Code(s): G25.81 - RESTLESS LEGS SYNDROME (7) COPD (chronic obstructive pulmonary disease) Assessment/Plan: stable continue home meds Code(s): J44.9 - CHRONIC OBSTRUCTIVE PULMONARY DISEASE, UNSPECIFIED (8) Depression with anxiety Assessment/Plan: Will hold meds for now secondary to Lethargy Code(s): F41.8 - OTHER SPECIFIED ANXIETY DISORDERS (9) GERD (gastroesophageal reflux disease) Assessment/Plan: Continue PPI Code(s): K21.9 - GASTRO-ESOPHAGEAL REFLUX DISEASE WITHOUT ESOPHAGITIS (10) HTN (hypertension) Assessment/Plan: Hold home meds secondary to hypotension Monitor BP closely Monitor renal function Code(s): I10 - ESSENTIAL (PRIMARY) HYPERTENSION Qualifiers: (11) Hyperlipidemia Assessment/Plan: Continue to monitor, hold med for now secondary to AMS Code(s): E78.5 - HYPERLIPIDEMIA, UNSPECIFIED Qualifiers: (12) Paroxysmal atrial fibrillation Assessment/Plan: [id number] 3 EKG- ST Will hold Eliquis for now secondary to AMS Heparin SQ Code(s): I48.0 - PAROXYSMAL ATRIAL FIBRILLATION (13) Chronic back pain Assessment/Plan: Will hold pain meds secondary to Acute Metabolic Encephalopathy Tylenol IV prn Code(s): M54.9 - DORSALGIA, UNSPECIFIED; G89.29 - OTHER CHRONIC PAIN (14) Opioid dependence Assessment/Plan: See Above Code(s): F11.20 - OPIOID DEPENDENCE, UNCOMPLICATED Assessment/Plan This is a 53 y/o woman admitted to Telemetry for Sepsis, UTI, Acute Metabolic Encephalopathy for further evaluation of their emergent condition. Plan: See Problem List FEN Gentle IVF Replete lytes prn NPO DVT ppx SCDs Heparin SQ Code Status: Full Code Dispo: Requires Inpatient Care Visit type - Emergency Visit Emergency Visit: Yes ED Registration Date: 12/12/18 Care time: The patient presented to the Emergency Department on the above date and was hospitalized for further evaluation of their emergent condition. - New Patient This patient is new to me today: Yes Date on this admission: 12/12/18 - Critical Care Critical Care patient: No
[2018-12-13] MEDS ORDERED: PIPERACILLIN/TAZOB 2.25 GM 2.25 GM/50 ML BAG IVPB ONE (03:21)
[2018-12-13] MEDS: PIPERACILLIN/TAZOB 2.25 GM 2.25 GM in DEXTROSE 5%-WATER - 50 ML IVPB SCH ×6 (03:34→17:28)
[2018-12-13 07:21] LABS: BASO % 0.4 % (0-2.0); EOS % 2.2 % (0-4.5); HEMATOCRIT 24.3 % (32.4-45.2); HEMOGLOBIN 7.8 GM/dL (10.7-15.3); LYMPH % 12.5 % (8-40); MEAN CELL VOLUME 103.1 fl (80-96); MEAN PLT VOLUME 9.1 fl (7.5-11.1); MONO % 6.7 % (3.8-10.2); NEUT % 78.2 % (42.8-82.8); PLATELET COUNT 214 K/MM3 (134-434); RBC 2.36 M/mm3 (3.60-5.2); RDW 20.4 % (11.6-15.6); WHITE BLOOD COUNT 11.8 K/mm3 (4.0-10.0)
[2018-12-13 07:45] LABS: ANION GAP 10 MMOL/L (8-16); BLOOD UREA NITROGEN 8 mg/dL (7-18); CALCIUM 7.1 mg/dL (8.5-10.1); CHLORIDE 120 mmol/L (98-107); CO2 21 mmol/L (21-32); CREATININE 1.6 mg/dL (0.55-1.3); GLUCOSE,RANDOM 86 mg/dL (74-106); POTASSIUM 4.1 mmol/L (3.5-5.1); SODIUM 150 mmol/L (136-145)
[2018-12-13] MEDS ORDERED: PIPERACILLIN/TAZOBACTAM 2.25 GM VIAL IVPB ONE ×2 (08:26→14:52)
[2018-12-13] MEDS ORDERED: DEXTROSE 5%-WATER - 50 ML IVPB ONE ×2 (08:26→14:52)
[2018-12-13] MEDS ORDERED: LACTULOSE 20 GM/30 ML UDC (FOR ORAL USE ONLY) PO ONE (11:30)
--- NOTE | 2018-12-13 11:36 | PN ---
Progress Note, Physician Chief Complaint: patient admitted for sepsis tmax 101 and wbc 19 now down to 11 complaining of leg pain says tylenol not helping - Current Medication List Current Medications: Active Medications Alprazolam (Xanax -) 0.25 mg PO Q8H PRN PRN Reason: ANXIETY Apixaban (Eliquis -) 5 mg PO BID EMM[facility] Docusate Sodium (Colace -) 300 mg PO HS [facility] Ferrous Sulfate (Feosol -) 325 mg PO BID E[facility] Hydromorphone HCl (Dilaudid -) 2 mg PO Q4H PRN PRN Reason: PAIN LEVEL 7 - 10 Piperacillin Sod/Tazobactam (Sod 2.25 gm/ Dextrose) 50 mls @ 100 mls/hr IVPB Q6H-IV [facility]; Protocol Piperacillin Sod/Tazobactam (Sod 2.25 gm/ Dextrose) 50 mls @ 100 mls/hr IVPB Q6H-IV E[facility]; Protocol Stop: 12/13/18 21:29 Last Admin: 12/13/18 09:18 Dose: 100 mls/hr Levothyroxine Sodium (Synthroid -) 50 mcg PO DAILY@0700 [facility] Montelukast Sodium (Singulair -) 10 mg PO HS [facility] Pramipexole Dihydrochloride (Mirapex -) 0.25 mg PO TID [facility] Ranitidine HCl (Zantac -) 150 mg PO DAILY [facility] Rosuvastatin Calcium (Crestor -) 10 mg PO HS [facility] Topiramate (Topamax -) 100 mg PO DAILY [facility] Venlafaxine HCl (Effexor Xr -) 75 mg PO DAILY [facility] - Objective Vital Signs: Vital Signs Temperature 98.8 F 12/13/18 06:00 Pulse Rate 105 H 12/13/18 06:00 Respiratory Rate 18 12/13/18 06:00 Blood Pressure 103/59 L 12/13/18 06:00 O2 Sat by Pulse Oximetry (%) 100 12/13/18 06:00 Constitutional: Yes: Calm Neck: Yes: Other (trach) Cardiovascular: Yes: Regular Rate and Rhythm, S1, S2 Respiratory: Yes: Rhonchi Gastrointestinal: Yes: Normal Bowel Sounds, Soft Edema: No Neurological: Yes: Alert, Oriented Labs: CBC, BMP 12/13/18 06:30 12/13/18 06:30 INR, PTT INR 3.45 (0.83-1.09) H 12/12/18 15:14 Problem List - Problems (1) Sepsis Assessment/Plan: iv abx urine and blood culture pending ID eval Code(s): A41.9 - SEPSIS, UNSPECIFIED ORGANISM Qualifiers: Sepsis type: sepsis due to unspecified organism Qualified Code(s): A41.9 - Sepsis, unspecified organism (2) Anemia Assessment/Plan: repeat cbc as drop in h/h maybe dilutional if still in 7 range will transfuse check stool for occult blood iron panel tibc,ferritin, Code(s): D64.9 - ANEMIA, UNSPECIFIED (3) Back pain Assessment/Plan: diluadid prn Code(s): M54.9 - DORSALGIA, UNSPECIFIED (4) Hypothyroid Assessment/Plan: tsh synthroid 50mcg Code(s): E03.9 - HYPOTHYROIDISM, UNSPECIFIED Qualifiers: (5) Restless leg syndrome Assessment/Plan: mirapex Code(s): G25.81 - RESTLESS LEGS SYNDROME (6) Afib Assessment/Plan: eliis hold cardizem given low BP cardiolgy eval Code(s): I48.91 - UNSPECIFIED ATRIAL FIBRILLATION (7) Anxiety Assessment/Plan: xanax prn Code(s): F41.9 - ANXIETY DISORDER, UNSPECIFIED
--- NOTE | 2018-12-13 12:02 | CON.CARD ---
Consult Consult Specialty:: Cardiology Referred by:: Dr. Burciaga/Amando Reason for Consultation:: afib on eliquis - History of Present Illness Chief Complaint: AMS, Fever, sepsis History of Present Illness: 53 year old woman with pmh HTN, DMII, HLD, COPD chronic hypoxic/hypercapneic resp failure s/p trach, Pafib previously not on AC due to GI bleed but has been on eliquis recently, hypothyroid, Bipolar, decubitus ulcer, prior admission for MRSA sepsis now admitted with AMS, fever, lethargy, drainage from trach, sinus tachycardia, presumed sepsis. Pt seen and examined today in nad. awake and alert. difficulty communicating due to trach but able to ask when she will be discharged. denies any current palpitations, chest pain, sob. - History Source History Provided By: Patient, Medical Record Limitations to Obtaining History: Physical Impairment - Past Medical History Cardio/Vascular: Yes: AFIB (Paroxysmal), HTN, Hyperlipdemia Pulmonary: Yes: Asthma, COPD, O2 Dependent, Previously Intubated, Other (Trach) Gastrointestinal: Yes: GI Bleed Renal/: Yes: Cancer (Uterine), Other (STENTS/[place] in the past) Infectious Disease: Yes: C-Diff (june 2014), Other (Osteomyelitis of thoracic spine) Psych: Yes: Anxiety, Bipolar, Depression Musculoskeletal: Yes: Chronic low back pain, Other (multiple vertebral fractures ) Endocrine: Yes: Diabetes Mellitus, Hypothyroidism Additional Medical History: Frequent c/o abdominal pain-extensive w/u in the past negative. Presumed adhesions from prior surgeries. - Past Surgical History Past Surgical History: Yes: Appendectomy, Colectomy (By description, right colon resection with anastamosis noted on colonoscopy 2013), Hysterectomy (ADE/ BSO), Stent - Alcohol/Substance Use Hx Alcohol Use: No History of Substance Use: reports: Prescription - Smoking History Smoking history: Former smoker Have you smoked in the past 12 months: No Aproximately how many cigarettes per day: 3 If you are a former smoker, when did you quit?: 1997 - Social History Usual Living Arrangement: Custodial 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) History of Recent Travel: No Home Medications - Allergies Allergies/Adverse Reactions: Allergies Allergy/AdvReac Type Severity Reaction Status Date / Time oxycodone [Oxycodone] Allergy Severe Nausea Verified 12/12/18 18:55 oxycodone HCl [From Percocet] Allergy Severe Nausea Verified 12/12/18 18:55 aspirin Allergy Mild Verified 12/12/18 18:55 blueberry [Blueberry] Allergy Mild Swelling Verified 12/12/18 18:55 fentanyl Allergy Mild Vomiting Verified 12/12/18 18:55 ibuprofen Allergy Swelling Verified 12/12/18 18:55 aspartame AdvReac Mild Itching Verified 12/12/18 18:55 - Home Medications Home Medications: Ambulatory Orders Albuterol Sulfate Inhaler - [Ventolin HFA Inhaler -] 2 puff IH Q4H PRN #0 inhaler 11/29/16 Acetaminophen [Tylenol .Regular Strength -] 650 mg PO Q6H PRN #0 tablet Apixaban [Eliquis -] 5 mg PO BID tablet 04/29/17 Baclofen 10 mg PO TID 07/09/18 Levothyroxine [Synthroid -] 50 mcg PO DAILY 07/09/18 Rosuvastatin Calcium [Crestor] 10 mg PO DAILY 07/09/18 Montelukast Na [Singulair -] 10 mg PO HS 08/07/18 Topiramate [Topamax -] 100 mg PO DAILY #30 tablet 08/15/18 Alprazolam [Xanax] 0.25 mg PO Q8H PRN tablet MDD 3 10/23/18 Cholecalciferol (Vitamin D3) [Vitamin D3 -] 1,000 unit PO DAILY tab 11/09/18 Cyanocobalamin Vit B-12 Inj. [Vitamin B12 Injection -] 1,000 mcg IM Q7D@1000 vial 11/09/18 Diltiazem Cd [Cardizem Cd -] 180 mg PO DAILY cap.cd.24h 11/09/18 Doxepin HCl [Sinequan -] 25 mg PO HS capsule 11/09/18 Ferrous Sulfate [Feosol] 325 mg PO BID ud 11/09/18 Nystatin Powder [Nystop Powder -] 1 applic TP DAILY applic 11/09/18 HYDROmorphone [Dilaudid -] 2 mg PO Q4H PRN 12/12/18 Insulin Sliding Scale [Novolog Vial Sliding Scale -] 0 units SQ TIDAC 12/12/18 Loperamide HCl [Loperamide] 2 mg PO HS PRN 12/12/18 Potassium Chloride 20 meq PO DAILY 12/12/18 Pramipexole Di-HCl [Mirapex] 0.5 mg PO TID 12/12/18 Ranitidine [Zantac -] 150 mg PO DAILY 12/12/18 Venlafaxine HCl ER [Effexor Xr -] 75 mg PO DAILY 12/12/18 Vitamin B Comp W-C [Nephro-Héctor -] 1 tablet PO DAILY 12/12/18 hydrOXYzine HCL [Atarax -] 10 mg PO BID PRN 12/12/18 Family Disease History - Family Disease History Family Disease History: Diabetes: Mother (Alive: heart surgery), Heart Disease: Mother, [place]: Father (: leukemia), Other: Brother (2,Healthy), Sister (1, Healthy) Review of Systems - Review of Systems Constitutional: reports: Fever, Malaise, Weakness. denies: No Symptoms, Chills , Diaphoresis, Lethargy, Loss of Appetite, Night Sweats, Unintentional Wgt. Loss , Other Eyes: denies: No Symptoms, Blind Spots, Blurred Vision, Double Vision, Eye Pain , Floaters, Photophobia, Recent Change in Vision, Other HENT: denies: No Symptoms, Difficult Swallowing, Ear Discharge, Ear Pain, Epistaxis, Gingival Bleeding, Hearing Loss, Mouth Swelling, Nasal Congestion, Ocular Prosthesis, Throat Pain, Toothache, Ringing in Ears, Other Neck: reports: Other (trach). denies: No Symptoms, Decreased ROM, Lumps, Pain on Movement, Stiffness, Swollen Glands, Tenderness Cardiovascular: denies: No Symptoms, Chest Pain, Edema, Palpitations, Shortness of Breath, Other Respiratory: denies: No Symptoms, Cough, Exercise Intolerance, Hemoptysis, Orthopnea, PND, Snoring, SOB, SOB on Exertion, Wheezing, Other Gastrointestinal: denies: No Symptoms, Abdominal Pain, Bloating, Constipation, Diarrhea, Dysphagia, Indigestion, Melena, Nausea, Rectal Bleeding, Vomiting, Vomiting Blood, Other Genitourinary: denies: No Symptoms, Burning, Discharge, Dysuria, Flank Pain, Frequency, Hematuria, Incontinence, Lesions, Menses, Pain, Testicular Mass, Testicular Pain, Testicular Swelling, Urgency, Vaginal Bleeding, Other Breasts: denies: No Symptoms Reported, See HPI, Breast Implants, Discharge from Nipple, Lumps, Pain, Skin Changes, Other Musculoskeletal: denies: No Symptoms, Back Pain, Crepitus, Decreased ROM, Extremity Pain, Joint Pain, Joint Swelling, Muscle Pain, Muscle Cramps, Muscle Weakness, Other Integumentary: denies: No Symptoms, Blister, Bruising, Change in Color, Eczema, Erythema, Incision, Lesions, Lump, Pallor, Pruritis, Rash, Wound, Other Neurological: reports: Change in LOC. denies: No Symptoms, Change in Speech, Confusion, Dizziness, Headache, Incoordination, Numbness, Parasthesia, Pre- Existing Deficit, Seizure, Syncope, Tremors, Unsteady Gait, Weakness, Other Endocrine: denies: No Symptoms, Excessive Sweating, Flushing, Increased Hunger, Increased Thirst, Intolerance to Cold, Intolerance to Heat, Unexplained Weight Gain, Unexplained Weight Loss, Other Hematology/Lymphatic: denies: No Symptoms, Easily Bruised, Excessive Bleeding, Swollen Glands, Other Psychiatric: denies: No Symptoms, Altered Sleep Pattern, Anxiety, Depression, Hallucinations, Panic, Paranoia, Suicidal, Other - Risk Factors Known Risk Factors: Yes: Hypercholesterolemia, Hypertension Vital Signs: Vital Signs Temperature 98.8 F 12/13/18 06:00 Pulse Rate 105 H 12/13/18 06:00 Respiratory Rate 18 12/13/18 06:00 Blood Pressure 103/59 L 12/13/18 06:00 O2 Sat by Pulse Oximetry (%) 100 12/13/18 06:00 Constitutional: Yes: No Distress, Calm Eyes: Yes: Conjunctiva Clear, EOM Intact, PERRL HENT: Yes: Other (trach) Respiratory: Yes: Diminished. No: Rales, Rhonchi, SOB, Wheezes Gastrointestinal: Yes: Normal Bowel Sounds, Soft Cardiovascular: Yes: Regular Rate and Rhythm. No: Bradycardia, Tachycardia, Pulse Irregular, Gallop, Rub JVD: No Carotid Bruit: No PMI: Non-Displaced Heart Sounds: Yes: S1, S2. No: Split S2, S3, S4, Clicks, Gallop, Rub, Bruit Murmur: No: Systolic Murmur, Diastolic Murmur Extremities: Yes: WNL Edema: No Peripheral Pulses WNL: Yes Neurological: Yes: Alert, Oriented Psychiatric: Yes: Alert, Oriented - Other Data Labs, Other Data: CBC, BMP 12/13/18 06:30 12/13/18 06:30 INR, PTT INR 3.45 (0.83-1.09) H 12/12/18 15:14 Troponin, BNP 12/12/18 15:14 Troponin I < 0.02 Troponin, BNP 12/12/18 15:14 Troponin I < 0.02 ekg 12/12 sinus tach 142bpm, no sig ST abnl Imaging - Results Chest X-ray: Report Reviewed, Image Reviewed EKG: Report Reviewed, Image Reviewed Other: Report Reviewed, Image Reviewed (tele-nsr, sinus tach, no sig arrhythmias recorded) Assessment/Plan 53 year old woman with pmh HTN, DMII, HLD, COPD chronic hypoxic/hypercapneic resp failure s/p trach, Pafib previously not on AC due to GI bleed but has been on eliquis recently, hypothyroid, Bipolar, decubitus ulcer, prior admission for MRSA sepsis now admitted with AMS, fever, lethargy, drainage from trach, sinus tachycardia, presumed sepsis. denies any current palpitations, chest pain, sob. Prior cardiology work up: -echo 09/2018 showed normal LV systolic function, mild valvular abnl, no sig change from prior echos - stress test 2015 no ischemia A/P History of Pafib -Sinus tach on admission, NSR and sinus tach on tele -no afib documented since admission -as she is not in afib and is intermittently hypotensive in the setting of sepsis agree with holding Diltiazem until BP tolerates -if develops Afib with RVR can use IV cardizem prn -given drop in Hgb from 11 to 7.8 and history of GI bleed would hold Eliquis until anemia evaluated further. If deemed to be safe prior to discharge, eliquis can be resumed. repeat CBC is pending. -check TFTs
--- NOTE | 2018-12-13 12:24 | CON.PULM ---
Consult Consult Specialty:: PULMONARY Referred by:: IRINEO Reason for Consultation:: SOB/TRACH/FEVER - History of Present Illness Chief Complaint: FEVER History of Present Illness: This is a 53 y/o woman with a PMHx of: Chronic Respiratory Failure, Tracheostomy , Asthma, COPD, O2 Dep, HTN, A-fib (on Eliquis), HLD, Hypothyroidism, DM, GI Bleed, Uterine Ca, Renal Stents, Bipolar, Depression, Chronic Pain, Decubitus Ulcer. Who presents to the ED for AMS, Fever 102.0. Patient at bedside, was lethargic, unable to provide HPI. Per ED records: BIBEMS for altered mental status, fever, and report of drainage from her trach tube from her SNF [facility]. She is full code per her SNF advance directive paperwork. SNF notes states there was a small amount of thick malodorous trach site secretions, temp up to 102.9, pulse 113. Patient was recently hospitalized for polymicrobial bacteremia which included MRSA. 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: Alzheimer's Cardio/Vascular: Yes: AFIB (Paroxysmal), HTN, Hyperlipdemia Pulmonary: Yes: Asthma, COPD, O2 Dependent, Previously Intubated, Other (Trach) Gastrointestinal: Yes: GI Bleed Hepatobiliary: No: Cirrhosis Renal/: Yes: Cancer (Uterine), Other ([place] in the past) Heme/Onc: Yes: Anemia Infectious Disease: Yes: C-Diff (june 2014), Other (Osteomyelitis of thoracic spine) Psych: Yes: Anxiety, Bipolar, Depression Musculoskeletal: Yes: Chronic low back pain, Other (multiple vertebral fractures ) Endocrine: Yes: Diabetes Mellitus, Hypothyroidism Additional Medical History: Frequent c/o abdominal pain-extensive w/u in the past negative. Presumed adhesions from prior surgeries. - Past Surgical History Past Surgical History: Yes: Appendectomy, Colectomy (By description, right colon resection with anastamosis noted on colonoscopy 2013), Hysterectomy (ADE/ BSO), Stent - Alcohol/Substance Use Hx Alcohol Use: No History of Substance Use: reports: Prescription - Smoking History Smoking history: Former smoker Have you smoked in the past 12 months: No Aproximately how many cigarettes per day: 3 If you are a former smoker, when did you quit?: 1997 - Social History Usual Living Arrangement: [facility] 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) Place of : [facility] History of Recent Travel: No Home Medications - Allergies Allergies/Adverse Reactions: Allergies Allergy/AdvReac Type Severity Reaction Status Date / Time oxycodone [Oxycodone] Allergy Severe Nausea Verified 12/12/18 18:55 oxycodone HCl [From Percocet] Allergy Severe Nausea Verified 12/12/18 18:55 aspirin Allergy Mild Verified 12/12/18 18:55 blueberry [Blueberry] Allergy Mild Swelling Verified 12/12/18 18:55 fentanyl Allergy Mild Vomiting Verified 12/12/18 18:55 ibuprofen Allergy Swelling Verified 12/12/18 18:55 aspartame AdvReac Mild Itching Verified 12/12/18 18:55 - Home Medications Home Medications: Ambulatory Orders Albuterol Sulfate Inhaler - [Ventolin HFA Inhaler -] 2 puff IH Q4H PRN #0 inhaler 11/29/16 Acetaminophen [Tylenol .Regular Strength -] 650 mg PO Q6H PRN #0 tablet Apixaban [Eliquis -] 5 mg PO BID tablet 04/29/17 Baclofen 10 mg PO TID 07/09/18 Levothyroxine [Synthroid -] 50 mcg PO DAILY 07/09/18 Rosuvastatin Calcium [Crestor] 10 mg PO DAILY 07/09/18 Montelukast Na [Singulair -] 10 mg PO HS 08/07/18 Topiramate [Topamax -] 100 mg PO DAILY #30 tablet 08/15/18 Alprazolam [Xanax] 0.25 mg PO Q8H PRN tablet MDD 3 10/23/18 Cholecalciferol (Vitamin D3) [Vitamin D3 -] 1,000 unit PO DAILY tab 11/09/18 Cyanocobalamin Vit B-12 Inj. [Vitamin B12 Injection -] 1,000 mcg IM Q7D@1000 vial 11/09/18 Diltiazem Cd [Cardizem Cd -] 180 mg PO DAILY cap.cd.24h 11/09/18 Doxepin HCl [Sinequan -] 25 mg PO HS capsule 11/09/18 Ferrous Sulfate [Feosol] 325 mg PO BID ud 11/09/18 Nystatin Powder [Nystop Powder -] 1 applic TP DAILY applic 11/09/18 HYDROmorphone [Dilaudid -] 2 mg PO Q4H PRN 12/12/18 Insulin Sliding Scale [Novolog Vial Sliding Scale -] 0 units SQ TIDAC 12/12/18 Loperamide HCl [Loperamide] 2 mg PO HS PRN 12/12/18 Potassium Chloride 20 meq PO DAILY 12/12/18 Pramipexole Di-HCl [Mirapex] 0.5 mg PO TID 12/12/18 Ranitidine [Zantac -] 150 mg PO DAILY 12/12/18 Venlafaxine HCl ER [Effexor Xr -] 75 mg PO DAILY 12/12/18 Vitamin B Comp W-C [Nephro-Héctor -] 1 tablet PO DAILY 12/12/18 hydrOXYzine HCL [Atarax -] 10 mg PO BID PRN 12/12/18 Family Disease History - Family Disease History Family Disease History: Diabetes: Mother (Alive: heart surgery), Heart Disease: Mother, [place]: Father (: leukemia), Other: Brother (2,Healthy), Sister (1, Healthy) Review of Systems Unable to obtain ROS, reason: unable to provide Physical Exam Vital Sings: Vital Signs Temperature 98.8 F 12/13/18 06:00 Pulse Rate 105 H 12/13/18 06:00 Respiratory Rate 18 12/13/18 06:00 Blood Pressure 103/59 L 12/13/18 06:00 O2 Sat by Pulse Oximetry (%) 100 12/13/18 06:00 Constitutional: Yes: Pallor, Thin, Other (temporal wasting) Eyes: Yes: EOM Intact HENT: Yes: Normocephalic Neck: Yes: Other (trach in place with yellow discharge/o2 collar) Cardiovascular: Yes: Regular Rate and Rhythm Respiratory: Yes: Diminished Gastrointestinal: Yes: Soft Edema: No Neurological: Yes: Pre-Existing Deficit Labs: CBC, BMP 12/13/18 06:30 12/13/18 06:30 rest reviewed Imaging - Results Chest X-ray: Report Reviewed, Image Reviewed Assessment/Plan RECURRENT FEVER POST LONG HOSPITALIZATION FOR POLYMICROBIAL BACTEREMIA REQUIRING PICC LINE AND CONTINUED ABS OUTPATIENT CHRONIC HYPOXEMIC/HYPERCAPNEIC RESP FAILURE WITH TRACH ON 02 COLLAR COPD SNF RESIDENT H/O GI BLEED NOW WITH DECREASED HGB 11.O TO 7.8GMS ANTICOAGULATION DUE TO AF NOW WITH SINUS TACH DECUBITUS DEPRESSION/BIPOLAR RENAL STAENTS UTERINE CA DM/HYPOTHYROID HTN RESP STATUS STABLE/NO RADIOGRAPHIC EVIDENCE TO SUGGEST PNEUMONIA THICK DISCHARGE AROUND TRACH SITE NEEDS TO BE CULTURED DROPPED 4 GRAMS HGB FROM ADMISSION ON ANTICOAGULATION W H/O GI BLEED HAVE STOPPED A/C FOR NOW INR 3.45 (? VIT K REQ) WILL CONTINUE O2/NEBS ETC./NO ROLE FOR STEROIDS PRESENTLY PANCULTURE BLOOD/URINE WILL LIKLEY NEED PRBC'S AVOID OVER SEDATION WILL FOLLOW Sreedhar SEXTON MD
[2018-12-13] MEDS: ALPRAZolam 0.25 MG TABLET PO PRN ×2 (12:34→22:33)
[2018-12-13] MEDS: HYDROmorphone HCL 2 MG TABLET PO PRN ×2 (12:34→17:30)
[2018-12-13 13:09] LABS: BASO % 0.6 % (0-2.0); LYMPH % 14.5 % (8-40); MCH 33.7 pg (25.7-33.7); MCHC 33.5 g/dl (32.0-36.0); MEAN CELL VOLUME 100.6 fl (80-96); MEAN PLT VOLUME 9.2 fl (7.5-11.1); MONO % 6.6 % (3.8-10.2); NEUT % 75.3 % (42.8-82.8); PLATELET COUNT 216 K/MM3 (134-434); RBC 2.38 M/mm3 (3.60-5.2); RDW 19.6 % (11.6-15.6); WHITE BLOOD COUNT 10.2 K/mm3 (4.0-10.0)
[2018-12-13] MEDS ORDERED: PHYTONADIONE 5 MG TABLET PO ONE (14:36)
--- NOTE | 2018-12-13 14:38 | PN ---
Progress Note (short form) - Note Progress Note: repeat h/h noted and inr noted vitamin K stop eliquis give prbc check stool occult heme consult Problem List - Problems (1) Sepsis Code(s): A41.9 - SEPSIS, UNSPECIFIED ORGANISM Qualifiers: Sepsis type: sepsis due to unspecified organism Qualified Code(s): A41.9 - Sepsis, unspecified organism (2) Anemia Code(s): D64.9 - ANEMIA, UNSPECIFIED (3) Back pain Code(s): M54.9 - DORSALGIA, UNSPECIFIED (4) Hypothyroid Code(s): E03.9 - HYPOTHYROIDISM, UNSPECIFIED Qualifiers: (5) Restless leg syndrome Code(s): G25.81 - RESTLESS LEGS SYNDROME (6) Afib Code(s): I48.91 - UNSPECIFIED ATRIAL FIBRILLATION (7) Anxiety Code(s): F41.9 - ANXIETY DISORDER, UNSPECIFIED
[2018-12-13] MEDS ORDERED: PT OWN MED DRAWER 7, Y5N ONE ×3 (14:51→21:51)
[2018-12-13] MEDS: PRAMIPEXOLE DIHYDROCHLORIDE 0.25 MG TABLET PO SCH ×2 (16:22→21:57)
--- NOTE | 2018-12-13 20:08 | PN ---
Progress Note (short form) - Note Progress Note: This is a 53 y/o woman with a PMHx of: Chronic Respiratory Failure, Tracheostomy , Asthma, COPD, O2 Dep, HTN, A-fib (on Eliquis), HLD, Hypothyroidism, DM, GI Bleed, Uterine Ca, Renal Stents, Bipolar, Depression, Chronic Pain, Decubitus Ulcer. Who presents to the ED for AMS, Fever 102.0. Patient at bedside, was lethargic, unable to provide HPI. Per ED records: BIBEMS for altered mental status, fever, and report of drainage from her trach tube from her SNF [facility]. She is full code per her SNF advance directive paperwork. SNF notes states there was a small amount of thick malodorous trach site secretions, temp up to 102.9, pulse 113. Patient was recently hospitalized for polymicrobial bacteremia which included MRSA. 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: Alzheimer's Cardio/Vascular: Yes: AFIB (Paroxysmal), HTN, Hyperlipdemia Pulmonary: Yes: Asthma, COPD, O2 Dependent, Previously Intubated, Other (Trach) Gastrointestinal: Yes: GI Bleed Hepatobiliary: No: Cirrhosis Renal/: Yes: Cancer (Uterine), Other ([place] in the past) Heme/Onc: Yes: Anemia Infectious Disease: Yes: C-Diff (june 2014), Other (Osteomyelitis of thoracic spine) Psych: Yes: Anxiety, Bipolar, Depression Musculoskeletal: Yes: Chronic low back pain, Other (multiple vertebral fractures ) Endocrine: Yes: Diabetes Mellitus, Hypothyroidism Additional Medical History: Frequent c/o abdominal pain-extensive w/u in the past negative. Presumed adhesions from prior surgeries. - Past Surgical History Past Surgical History: Yes: Appendectomy, Colectomy (By description, right colon resection with anastamosis noted on colonoscopy 2013), Hysterectomy (ADE/ BSO), Stent - Alcohol/Substance Use Hx Alcohol Use: No History of Substance Use: reports: Prescription - Smoking History Smoking history: Former smoker Have you smoked in the past 12 months: No Aproximately how many cigarettes per day: 3 If you are a former smoker, when did you quit?: 1997 - Social History Usual Living Arrangement: Intermediate 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) Place of : [place] History of Recent Travel: No Home Medications - Allergies Allergies/Adverse Reactions: Allergies Allergy/AdvReac Type Severity Reaction Status Date / Time oxycodone [Oxycodone] Allergy Severe Nausea Verified 12/12/18 18:55 oxycodone HCl [From Percocet] Allergy Severe Nausea Verified 12/12/18 18:55 aspirin Allergy Mild Verified 12/12/18 18:55 blueberry [Blueberry] Allergy Mild Swelling Verified 12/12/18 18:55 fentanyl Allergy Mild Vomiting Verified 12/12/18 18:55 ibuprofen Allergy Swelling Verified 12/12/18 18:55 aspartame AdvReac Mild Itching Verified 12/12/18 18:55 - Home Medications Home Medications: Ambulatory Orders Albuterol Sulfate Inhaler - [Ventolin HFA Inhaler -] 2 puff IH Q4H PRN #0 inhaler 11/29/16 Acetaminophen [Tylenol .Regular Strength -] 650 mg PO Q6H PRN #0 tablet Apixaban [Eliquis -] 5 mg PO BID tablet 04/29/17 Baclofen 10 mg PO TID 07/09/18 Levothyroxine [Synthroid -] 50 mcg PO DAILY 07/09/18 Rosuvastatin Calcium [Crestor] 10 mg PO DAILY 07/09/18 Montelukast Na [Singulair -] 10 mg PO HS 08/07/18 Topiramate [Topamax -] 100 mg PO DAILY #30 tablet 08/15/18 Alprazolam [Xanax] 0.25 mg PO Q8H PRN tablet MDD 3 10/23/18 Cholecalciferol (Vitamin D3) [Vitamin D3 -] 1,000 unit PO DAILY tab 11/09/18 Cyanocobalamin Vit B-12 Inj. [Vitamin B12 Injection -] 1,000 mcg IM Q7D@1000 vial 11/09/18 Diltiazem Cd [Cardizem Cd -] 180 mg PO DAILY cap.cd.24h 11/09/18 Doxepin HCl [Sinequan -] 25 mg PO HS capsule 11/09/18 Ferrous Sulfate [Feosol] 325 mg PO BID ud 11/09/18 Nystatin Powder [Nystop Powder -] 1 applic TP DAILY applic 11/09/18 HYDROmorphone [Dilaudid -] 2 mg PO Q4H PRN 12/12/18 Insulin Sliding Scale [Novolog Vial Sliding Scale -] 0 units SQ TIDAC 12/12/18 Loperamide HCl [Loperamide] 2 mg PO HS PRN 12/12/18 Potassium Chloride 20 meq PO DAILY 12/12/18 Pramipexole Di-HCl [Mirapex] 0.5 mg PO TID 12/12/18 Ranitidine [Zantac -] 150 mg PO DAILY 12/12/18 Venlafaxine HCl ER [Effexor Xr -] 75 mg PO DAILY 12/12/18 Vitamin B Comp W-C [Nephro-Héctor -] 1 tablet PO DAILY 12/12/18 hydrOXYzine HCL [Atarax -] 10 mg PO BID PRN 12/12/18 Family Disease History - Family Disease History Family Disease History: Diabetes: Mother (Alive: heart surgery), Heart Disease: Mother, CA: Father (: leukemia), Other: Brother (2,Healthy), Sister (1, Healthy) Review of Systems Unable to obtain ROS, reason: unable to provide Physical Exam Vital Sings: Vital Signs Temperature 98.8 F 12/13/18 06:00 Pulse Rate 105 H 12/13/18 06:00 Respiratory Rate 18 12/13/18 06:00 Blood Pressure 103/59 L 12/13/18 06:00 O2 Sat by Pulse Oximetry (%) 100 12/13/18 06:00 Constitutional: Yes: Pallor, Thin, Other (temporal wasting) Eyes: Yes: EOM Intact HENT: Yes: Normocephalic Neck: Yes: Other (trach in place with yellow discharge/o2 collar) Cardiovascular: Yes: Regular Rate and Rhythm Respiratory: Yes: Diminished Gastrointestinal: Yes: Soft Edema: No Neurological: Yes: Pre-Existing Deficit Labs: CBC, BMP 12/13/18 06:30 12/13/18 06:30 rest reviewed Imaging - Results Chest X-ray: Report Reviewed, Image Reviewed Assessment/Plan RECURRENT FEVER POST LONG HOSPITALIZATION FOR POLYMICROBIAL BACTEREMIA REQUIRING PICC LINE AND CONTINUED ABS OUTPATIENT CHRONIC HYPOXEMIC/HYPERCAPNEIC RESP FAILURE WITH TRACH ON 02 COLLAR COPD SNF RESIDENT H/O GI BLEED NOW WITH DECREASED HGB 11.O TO 7.8GMS ANTICOAGULATION DUE TO AF NOW WITH SINUS TACH DECUBITUS DEPRESSION/BIPOLAR RENAL STAENTS UTERINE CA DM/HYPOTHYROID HTN
[2018-12-13] MEDS: FERROUS SO4 325 MG TABLET (FP) PO SCH (21:56)
[2018-12-13] MEDS: DOCUSATE SODIUM 100 MG CAPSULE (FP) PO SCH (21:56)
[2018-12-13] MEDS: MONTELUKAST NA 10 MG TABLET PO SCH (21:56)
[2018-12-13] MEDS ORDERED: APIXABAN 5 MG TABLET PO SCH (22:00)
[2018-12-13] MEDS ORDERED: ROSUVASTATIN CA 10 MG TABLET (FP) PO SCH (22:00)
--- NOTE | 2018-12-13 23:32 | CONSULT ---
Consult - text type - Consultation Consultation Note: 53YOF with h/o chronic trach use, COPD, respiratory failure, UTI, HTN, HLD, A- fib (on Eliquis), IDDM, decubitus ulcer, hypothyroidism, chronic pain, depression, and anxiety;comes in for altered mental status, fever, and report of drainage from her trach tube from her [facility]. We have been consulted regarding dropping hemoglobin she is currently being transfused denies any overt bleeding - Past Medical History Allergies/Adverse Reactions: Allergies Allergy/AdvReac Type Severity Reaction Status Date / Time oxycodone [Oxycodone] Allergy Severe Nausea Verified 12/12/18 18:55 oxycodone HCl [From Percocet] Allergy Severe Nausea Verified 12/12/18 18:55 aspirin Allergy Mild Verified 12/12/18 18:55 blueberry [Blueberry] Allergy Mild Swelling Verified 12/12/18 18:55 fentanyl Allergy Mild Vomiting Verified 12/12/18 18:55 ibuprofen Allergy Swelling Verified 12/12/18 18:55 aspartame AdvReac Mild Itching Verified 12/12/18 18:55 Home Medications: Ambulatory Orders Albuterol Sulfate Inhaler - [Ventolin HFA Inhaler -] 2 puff IH Q4H PRN #0 inhaler 11/29/16 Acetaminophen [Tylenol .Regular Strength -] 650 mg PO Q6H PRN #0 tablet Apixaban [Eliquis -] 5 mg PO BID tablet 04/29/17 Baclofen 10 mg PO TID 07/09/18 Levothyroxine [Synthroid -] 50 mcg PO DAILY 07/09/18 Rosuvastatin Calcium [Crestor] 10 mg PO DAILY 07/09/18 Montelukast Na [Singulair -] 10 mg PO HS 08/07/18 Topiramate [Topamax -] 100 mg PO DAILY #30 tablet 08/15/18 Alprazolam [Xanax] 0.25 mg PO Q8H PRN tablet MDD 3 10/23/18 Cholecalciferol (Vitamin D3) [Vitamin D3 -] 1,000 unit PO DAILY tab 11/09/18 Cyanocobalamin Vit B-12 Inj. [Vitamin B12 Injection -] 1,000 mcg IM Q7D@1000 vial 11/09/18 Diltiazem Cd [Cardizem Cd -] 180 mg PO DAILY cap.cd.24h 11/09/18 Doxepin HCl [Sinequan -] 25 mg PO HS capsule 11/09/18 Ferrous Sulfate [Feosol] 325 mg PO BID ud 11/09/18 Nystatin Powder [Nystop Powder -] 1 applic TP DAILY applic 11/09/18 HYDROmorphone [Dilaudid -] 2 mg PO Q4H PRN 12/12/18 Insulin Sliding Scale [Novolog Vial Sliding Scale -] 0 units SQ TIDAC 12/12/18 Loperamide HCl [Loperamide] 2 mg PO HS PRN 12/12/18 Potassium Chloride 20 meq PO DAILY 12/12/18 Pramipexole Di-HCl [Mirapex] 0.5 mg PO TID 12/12/18 Ranitidine [Zantac -] 150 mg PO DAILY 12/12/18 Venlafaxine HCl ER [Effexor Xr -] 75 mg PO DAILY 12/12/18 Vitamin B Comp W-C [Nephro-Héctor -] 1 tablet PO DAILY 12/12/18 hydrOXYzine HCL [Atarax -] 10 mg PO BID PRN 12/12/18 PMH Anemia: Yes Asthma: Yes (COPD, trach #8) Cancer: Yes (UTERINE) Cardiac Disorders: Yes (A-fib) COPD: Yes Diabetes: Yes GI Disorders: Yes (colitis, SB resection, GERD) Disorders: Yes (KIDNEY STENTS) HTN: Yes Hypercholesterolemia: Yes Psychiatric Problems: Yes (ANXIETY) Seizures: Yes (5 yrs ago) - Surgical History Abdominal Surgery: Yes (BOWEL RESECTION) Appendectomy: Yes (removed 1998) Orthopedic Surgery: Yes (Back Sx T7,6) - Suicide/Smoking/Psychosocial Hx Smoking History: Former smoker Active Medications Generic Name Dose Route Start Last Admin Trade Name Freq PRN Reason Stop Dose Admin Alprazolam 0.25 mg 12/13/18 11:24 12/13/18 22:33 Xanax - PO 0.25 mg Q8H PRN Administration ANXIETY Ascorbic Acid 500 mg 12/14/18 10:00 Vitamin C - PO DAILY [facility] Docusate Sodium 300 mg 12/13/18 22:00 12/13/18 21:56 Colace - PO Not Given HS [facility] Ferrous Sulfate 325 mg 12/13/18 22:00 12/13/18 21:56 Feosol - PO 325 mg BID [facility] Administration Hydromorphone HCl 2 mg 12/13/18 11:22 12/13/18 17:30 Dilaudid - PO 2 mg Q4H PRN Administration PAIN LEVEL 7 - 10 Piperacillin Sod/Tazobactam 50 mls @ 100 mls/hr 12/13/18 15:45 12/13/18 17:28 Sod 2.25 gm/ Dextrose IVPB 100 mls/hr Q8H-IV [facility] Administration Protocol Levothyroxine Sodium 50 mcg 12/14/18 07:00 Synthroid - PO DAILY@0700 [facility] Montelukast Sodium 10 mg 12/13/18 22:00 12/13/18 21:56 Singulair - PO 10 mg HS [facility] Administration Pramipexole Dihydrochloride 0.25 mg 12/13/18 14:00 12/13/18 21:57 Mirapex - PO 0.25 mg TID [facility] Administration Ranitidine HCl 150 mg 12/14/18 10:00 Zantac - PO DAILY [facility] Rosuvastatin Calcium 10 mg 12/13/18 22:00 12/13/18 21:56 Crestor - PO 10 mg HS [facility] Administration Topiramate 100 mg 12/14/18 10:00 Topamax - PO DAILY [facility] Venlafaxine HCl 75 mg 12/14/18 10:00 Effexor Xr - PO DAILY [facility] Last Vital Signs Temp Pulse Resp BP Pulse Ox 98.0 F 114 H 20 120/77 100 12/13/18 22:00 12/13/18 22:00 12/13/18 22:00 12/13/18 22:00 12/13/18 22:00 HEENT: trach+ Cor: RSR, No murmurs, No gallops Lungs: Clear anteriorly Abd: Soft, Normal bowel sounds, laparotomy scar ext. no c/c/e a/P 53YOF with h/o chronic trach use, COPD, respiratory failure, UTI, HTN, HLD, A- fib (on Eliquis), IDDM, decubitus ulcer, hypothyroidism, chronic pain, depression, and anxiety;comes in for altered mental status, fever, and report of drainage from her trach tube from her [facility]. We have been consulted regarding dropping hemoglobin/elevated inr she is currently being transfused denies any overt bleeding elevated inr --due to eliquis + ?? superimposed vit k deficiency from antibiotic use agree with vit. K 2.5 mg eliquis on hold anemia--multifactorial chronic disease +/- gi losses consult gi team diarrhea--check c. diff will follow
[2018-12-14] MEDS: HYDROmorphone HCL 2 MG TABLET PO PRN ×3 (00:27→16:56)
[2018-12-14] MEDS ORDERED: PIPERACILLIN/TAZOBACTAM 2.25 GM VIAL IVPB ONE ×3 (01:04→16:51)
[2018-12-14] MEDS ORDERED: DEXTROSE 5%-WATER - 50 ML IVPB ONE ×3 (01:05→16:51)
[2018-12-14] MEDS: PIPERACILLIN/TAZOB 2.25 GM 2.25 GM in DEXTROSE 5%-WATER - 50 ML IVPB SCH ×3 (01:33→17:01)
[2018-12-14] MEDS ORDERED: PIPERACILLIN/TAZOB 2.25 GM 2.25 GM in DEXTROSE 5%-WATER - 50 ML IVPB SCH (03:00)
[2018-12-14] MEDS ORDERED: PT OWN MED DRAWER 7, Y5N ONE ×6 (05:52→22:51)
[2018-12-14] MEDS: LEVOTHYROXINE NA 50 MCG TABLET (FP) PO SCH (06:00)
[2018-12-14] MEDS: PRAMIPEXOLE DIHYDROCHLORIDE 0.25 MG TABLET PO SCH ×3 (06:00→22:01)
[2018-12-14] MEDS ORDERED: RANITIDINE HCL 150 MG TABLET (FP) PO SCH (10:00)
--- NOTE | 2018-12-14 10:46 | PN ---
Progress Note, Physician History of Present Illness: seen and examined today in [facility]. no overnight events. no new complaints. - Current Medication List Current Medications: Active Medications Alprazolam (Xanax -) 0.25 mg PO Q8H PRN PRN Reason: ANXIETY Last Admin: 12/13/18 22:33 Dose: 0.25 mg Ascorbic Acid (Vitamin C -) 500 mg PO DAILY [facility] Docusate Sodium (Colace -) 300 mg PO [facility] Last Admin: 12/13/18 21:56 Dose: Not Given Ferrous Sulfate (Feosol -) 325 mg PO BID [facility] Last Admin: 12/13/18 21:56 Dose: 325 mg Hydromorphone HCl (Dilaudid -) 2 mg PO Q4H PRN PRN Reason: PAIN LEVEL 7 - 10 Last Admin: 12/14/18 00:27 Dose: 2 mg Piperacillin Sod/Tazobactam (Sod 2.25 gm/ Dextrose) 50 mls @ 100 mls/hr IVPB Q8H-IV [facility]; Protocol Last Admin: 12/14/18 01:33 Dose: 100 mls/hr Levothyroxine Sodium (Synthroid -) 50 mcg PO DAILY@0700 [facility] Last Admin: 12/14/18 06:00 Dose: 50 mcg Montelukast Sodium (Singulair -) 10 mg PO [facility] Last Admin: 12/13/18 21:56 Dose: 10 mg Pramipexole Dihydrochloride (Mirapex -) 0.25 mg PO TID [facility] Last Admin: 12/14/18 06:00 Dose: 0.25 mg Ranitidine HCl (Zantac -) 150 mg PO DAILY [facility] Rosuvastatin Calcium (Crestor -) 10 mg PO [facility] Last Admin: 12/13/18 21:56 Dose: 10 mg Topiramate (Topamax -) 100 mg PO DAILY [facility] Venlafaxine HCl (Effexor Xr -) 75 mg PO DAILY [facility] - Objective Vital Signs: Vital Signs Temperature 98.2 F 12/14/18 06:07 Pulse Rate 112 H 12/14/18 06:07 Respiratory Rate 20 12/14/18 06:07 Blood Pressure 126/79 12/14/18 06:07 O2 Sat by Pulse Oximetry (%) 100 12/13/18 22:00 Constitutional: Yes: No Distress, Calm Eyes: Yes: Conjunctiva Clear, EOM Intact HENT: Yes: Atraumatic, Normocephalic Neck: Yes: Supple, Trachea Midline Cardiovascular: Yes: Regular Rate and Rhythm, S1, S2. No: Bradycardia, Tachycardia, Pulse Irregular, Bruit, JVD, Gallop, Murmur, Rub, S3, S4, Varicosities Respiratory: Yes: Regular, CTA Bilaterally. No: Rales, Rhonchi, Wheezes Gastrointestinal: Yes: Normal Bowel Sounds, Soft. No: Distention, Tenderness Extremities: Yes: WNL Edema: No Peripheral Pulses WNL: Yes Peripheral Pulses: Left Doralis Pedis: 2+, Right Dorsalis Pedis: 2+ Neurological: Yes: Alert, Oriented Psychiatric: Yes: Alert, Oriented Labs: CBC, BMP 12/13/18 12:35 12/13/18 06:30 INR, PTT INR 3.45 (0.83-1.09) H 12/12/18 15:14 - ....Imaging Chest X-ray: Report Reviewed, Image Reviewed EKG: Report Reviewed, Image Reviewed Other: Report Reviewed, Image Reviewed (tele-nsr, sinus tach, no arrhythmias) Assessment/Plan 53 year old woman with pmh HTN, DMII, HLD, COPD chronic hypoxic/hypercapneic resp failure s/p trach, Pafib previously not on AC due to GI bleed but has been on eliquis recently, hypothyroid, Bipolar, decubitus ulcer, prior admission for MRSA sepsis now admitted with AMS, fever, lethargy, drainage from trach, sinus tachycardia, presumed sepsis. denies any current palpitations, chest pain, sob. Prior cardiology work up: -echo 09/2018 showed normal LV systolic function, mild valvular abnl, no sig change from prior echos - stress test 2016 no ischemia A/P History of Pafib -Sinus tach on admission, NSR and sinus tach on tele -no afib documented since admission -as she is not in afib and is intermittently hypotensive in the setting of sepsis agree with holding Diltiazem until BP tolerates -if develops Afib with RVR can use IV cardizem prn -eliquis stopped due to anemia. If deemed to be safe prior to discharge, eliquis can be resumed. repeat CBC is pending. -TSH elevated, consider full TFTs No other inpatient cardiac work up needed at this time. Please call with any additional questions.
[2018-12-14] MEDS: ASCORBIC ACID 500 MG TABLET (FP) PO SCH (10:55)
[2018-12-14] MEDS: VENLAFAXINE HCL 75 MG E.R. CAPSULES (FP) PO SCH (10:55)
[2018-12-14] MEDS: FERROUS SO4 325 MG TABLET (FP) PO SCH ×2 (10:55→22:02)
[2018-12-14] MEDS: TOPIRAMATE 100 MG TABLET PO SCH (10:55)
[2018-12-14] MEDS: ALPRAZolam 0.25 MG TABLET PO PRN (11:05)
--- NOTE | 2018-12-14 11:27 | PN ---
Progress Note, Physician Chief Complaint: LEEANNA Anemia History of Present Illness: c/o coughing Vomitus x 1 during my assessment / to coughing uncontrollably febrile cultures pending On IV abx ID consult - Current Medication List Current Medications: Active Medications Alprazolam (Xanax -) 0.25 mg PO Q8H PRN PRN Reason: ANXIETY Last Admin: 12/14/18 11:05 Dose: 0.25 mg Ascorbic Acid (Vitamin C -) 500 mg PO DAILY [facility] Last Admin: 12/14/18 10:55 Dose: 500 mg Docusate Sodium (Colace -) 300 mg PO HS [facility] Last Admin: 12/13/18 21:56 Dose: Not Given Ferrous Sulfate (Feosol -) 325 mg PO BID [facility] Last Admin: 12/14/18 10:55 Dose: 325 mg Hydromorphone HCl (Dilaudid -) 2 mg PO Q4H PRN PRN Reason: PAIN LEVEL 7 - 10 Last Admin: 12/14/18 11:05 Dose: 2 mg Piperacillin Sod/Tazobactam (Sod 2.25 gm/ Dextrose) 50 mls @ 100 mls/hr IVPB Q8H-IV [facility]; Protocol Last Admin: 12/14/18 10:55 Dose: 100 mls/hr Levothyroxine Sodium (Synthroid -) 50 mcg PO DAILY@0700 [facility] Last Admin: 12/14/18 06:00 Dose: 50 mcg Montelukast Sodium (Singulair -) 10 mg PO HS [facility] Last Admin: 12/13/18 21:56 Dose: 10 mg Pramipexole Dihydrochloride (Mirapex -) 0.25 mg PO TID [facility] Last Admin: 12/14/18 06:00 Dose: 0.25 mg Ranitidine HCl (Zantac -) 150 mg PO DAILY [facility] Last Admin: 12/14/18 10:55 Dose: 150 mg Topiramate (Topamax -) 100 mg PO DAILY [facility] Last Admin: 12/14/18 10:55 Dose: 100 mg Venlafaxine HCl (Effexor Xr -) 75 mg PO DAILY [facility] Last Admin: 12/14/18 10:55 Dose: 75 mg - Objective Vital Signs: Vital Signs Temperature 98.2 F 12/14/18 06:07 Pulse Rate 112 H 12/14/18 06:07 Respiratory Rate 20 12/14/18 06:07 Blood Pressure 126/79 12/14/18 06:07 O2 Sat by Pulse Oximetry (%) 100 12/13/18 22:00 Constitutional: Yes: Well Nourished, No Distress, Calm Cardiovascular: Yes: Regular Rate and Rhythm Respiratory: Yes: Rhonchi (diffuse), Other (trach collar) Gastrointestinal: Yes: Normal Bowel Sounds, Soft, Vomiting Genitourinary: Yes: WNL Musculoskeletal: Yes: Muscle Weakness Edema: No Peripheral Pulses WNL: Yes Neurological: Yes: Alert, Oriented Psychiatric: Yes: Alert, Oriented Labs: CBC, BMP 12/13/18 12:35 12/13/18 06:30 INR, PTT INR 3.45 (0.83-1.09) H 12/12/18 15:14 Problem List - Problems (1) LEEANNA (acute kidney injury) Assessment/Plan: -monitor trend -Nephrology consult -/2 to UTI Code(s): N17.9 - ACUTE KIDNEY FAILURE, UNSPECIFIED (2) Diarrhea Assessment/Plan: -GI consult -Hold colace -Stool for cdiff, culture, O&P -ID consult -IV abx Code(s): R19.7 - DIARRHEA, UNSPECIFIED (3) Sepsis Code(s): A41.9 - SEPSIS, UNSPECIFIED ORGANISM Qualifiers: Sepsis type: sepsis due to unspecified organism Qualified Code(s): A41.9 - Sepsis, unspecified organism (4) UTI (urinary tract infection) Code(s): N39.0 - URINARY TRACT INFECTION, SITE NOT SPECIFIED Qualifiers: Urinary tract infection type: acute cystitis Hematuria presence: without hematuria Qualified Code(s): N30.00 - Acute cystitis without hematuria (5) Acute and chronic respiratory failure with hypoxia Code(s): J96.21 - ACUTE AND CHRONIC RESPIRATORY FAILURE WITH HYPOXIA
[2018-12-14] MEDS ORDERED: ONDANSETRON 4 MG/2 ML VIAL IVPB PRN (12:45)
[2018-12-14] MEDS ORDERED: guaiFENesin/D-METHORPHAN HB 10 ML UNIT-DOSE CUPS PO PRN (12:46)
--- NOTE | 2018-12-14 13:04 | PN ---
Progress Note, Physician History of Present Illness: PULMONARY AWAKE,-RESP DISTRESS - Current Medication List Current Medications: Active Medications Acetaminophen (Tylenol -) 650 mg PO Q4H PRN PRN Reason: PAIN OR FEVER Albuterol/Ipratropium (Duoneb -) 1 amp NEB RQ4H [facility] Alprazolam (Xanax -) 0.25 mg PO Q8H PRN PRN Reason: ANXIETY Last Admin: 12/14/18 11:05 Dose: 0.25 mg Ascorbic Acid (Vitamin C -) 500 mg PO DAILY [facility] Last Admin: 12/14/18 10:55 Dose: 500 mg Docusate Sodium (Colace -) 300 mg PO [facility] Last Admin: 12/13/18 21:56 Dose: Not Given Ferrous Sulfate (Feosol -) 325 mg PO BID [facility] Last Admin: 12/14/18 10:55 Dose: 325 mg Guaifenesin (Robitussin Dm -) 10 ml PO Q4H PRN PRN Reason: COUGH Hydromorphone HCl (Dilaudid -) 2 mg PO Q4H PRN PRN Reason: PAIN LEVEL 7 - 10 Last Admin: 12/14/18 11:05 Dose: 2 mg Piperacillin Sod/Tazobactam (Sod 2.25 gm/ Dextrose) 50 mls @ 100 mls/hr IVPB Q8H-IV [facility]; Protocol Last Admin: 12/14/18 10:55 Dose: 100 mls/hr Levothyroxine Sodium (Synthroid -) 50 mcg PO DAILY@0700 [facility] Last Admin: 12/14/18 06:00 Dose: 50 mcg Montelukast Sodium (Singulair -) 10 mg PO [facility] Last Admin: 12/13/18 21:56 Dose: 10 mg Ondansetron HCl (Zofran Injection) 8 mg IVPB Q8H PRN PRN Reason: NAUSEA Pramipexole Dihydrochloride (Mirapex -) 0.25 mg PO TID [facility] Last Admin: 12/14/18 06:00 Dose: 0.25 mg Ranitidine HCl (Zantac -) 150 mg PO DAILY [facility] Last Admin: 12/14/18 10:55 Dose: 150 mg Topiramate (Topamax -) 100 mg PO DAILY [facility] Last Admin: 12/14/18 10:55 Dose: 100 mg Venlafaxine HCl (Effexor Xr -) 75 mg PO DAILY [facility] Last Admin: 12/14/18 10:55 Dose: 75 mg - Objective Vital Signs: Vital Signs Temperature 98.2 F 12/14/18 06:07 Pulse Rate 112 H 12/14/18 06:07 Respiratory Rate 20 12/14/18 06:07 Blood Pressure 126/79 12/14/18 06:07 O2 Sat by Pulse Oximetry (%) 100 12/13/18 22:00 Constitutional: Yes: Well Nourished, Calm Eyes: Yes: WNL HENT: Yes: WNL Neck: Yes: Supple (TRACH) Cardiovascular: Yes: Pulse Irregular, S1, S2 Respiratory: Yes: Wheezes (FEW SCATTERED WHEEZES) Gastrointestinal: Yes: Normal Bowel Sounds, Soft Extremities: Yes: WNL Edema: No Labs: CBC, BMP Problem List - Problems (1) Sepsis Code(s): A41.9 - SEPSIS, UNSPECIFIED ORGANISM Qualifiers: Sepsis type: sepsis due to unspecified organism Qualified Code(s): A41.9 - Sepsis, unspecified organism (2) Abscess Code(s): L02.91 - CUTANEOUS ABSCESS, UNSPECIFIED (3) Acute and chronic respiratory failure with hypoxia Code(s): J96.21 - ACUTE AND CHRONIC RESPIRATORY FAILURE WITH HYPOXIA (4) Acute metabolic encephalopathy Code(s): G93.41 - METABOLIC ENCEPHALOPATHY (5) Acute on chronic respiratory failure with hypoxia and hypercapnia Code(s): J96.21 - ACUTE AND CHRONIC RESPIRATORY FAILURE WITH HYPOXIA; J96.22 - ACUTE AND CHRONIC RESPIRATORY FAILURE WITH HYPERCAPNIA (6) Anemia Code(s): D64.9 - ANEMIA, UNSPECIFIED (7) Diabetes Code(s): E11.9 - TYPE 2 DIABETES MELLITUS WITHOUT COMPLICATIONS (8) Tracheostomy in place Code(s): Z93.0 - TRACHEOSTOMY STATUS (9) Afib Code(s): I48.91 - UNSPECIFIED ATRIAL FIBRILLATION (10) Anxiety Code(s): F41.9 - ANXIETY DISORDER, UNSPECIFIED (11) GERD (gastroesophageal reflux disease) Code(s): K21.9 - GASTRO-ESOPHAGEAL REFLUX DISEASE WITHOUT ESOPHAGITIS (12) HTN (hypertension) Code(s): I10 - ESSENTIAL (PRIMARY) HYPERTENSION Qualifiers: (13) Paroxysmal atrial fibrillation Code(s): I48.0 - PAROXYSMAL ATRIAL FIBRILLATION Assessment/Plan Assessment/Plan ALTERED MENTAL STATUS FEVER CHRONIC HYPOXEMIC/HYPERCAPNEIC RESP FAILURE WITH TRACH ON COLLAR COPD H/O GI BLEED NOW WITH DECREASED HGB 11.O TO 7.8GMS ANTICOAGULATION DUE TO AF NOW WITH SINUS TACH DECUBITUS DEPRESSION/BIPOLAR RENAL STAENTS UTERINE CA DM/HYPOTHYROID HTN SUPRA-THERAPEUTIC INR RESP STATUS STABLE NO RADIOGRAPHIC EVIDENCE TO SUGGEST PNEUMONIA\ DROPPED 4 GRAMS HGB FROM ADMISSION ON ANTICOAGULATION W H/O GI BLEED O2 ABX MONITOR LYTES,H+H MONITOR INR TRACHEAL SUCTIONING INHALED BRONCHODILATORS NO NEED FOR STEROIDS AT THIS TIME NORMAL TRANSFUSION THRESHOLD AVOID OVER SEDATION DR RUFFIN
[2018-12-14] MEDS: ACETAMINOPHEN 325 MG TABLET (FP) PO PRN ×2 (13:12→17:00)
[2018-12-14] MEDS: ALBUTEROL SO4 2.5/IPRATROPIUM 0.5 INH SOL 3 ML VIAL.NEB. NEB SCH ×3 (13:45→20:25)
[2018-12-14] MEDS: METOCLOPRAMIDE HCL INJECTION 10 MG/2 ML VIAL IVPUSH SCH ×2 (13:54→22:02)
--- NOTE | 2018-12-14 14:22 | CON.GI ---
Consult Consult Specialty:: GI: For Dr. Esparza Referred by:: Cindy Garza NP Reason for Consultation:: Anemia - History of Present Illness Chief Complaint: Fevers History of Present Illness: 53F admitted from [place] in [place] for evaluation of fevers. Asked to evaluate anemia. She also vomited twice. Her PMD is Dr. Jaquez. She was seen in the ER 08/10 for vomiting and at that time her blood glucose was >500. Asked to evaluate anemia. Her Hgb on admission was 11 and it was noted to decrease since then. No diarrhea has been reported. No rectal bleeding or melena reported. She was uncertain if she has ever had an upper endoscopy but believes that colonoscopy was performed 2-[address] Lund and that it was "OK ". In review of [employer], it appears as though she had EGD/Colonoscopy performed by Dr. Carson in the past as well. EGD revealed gastric ulcers. Biopsies were negative for H. Pylori. Colonoscopy revealed a right sided colon anastamosis. Biopsies of the colon were unrevealing for microscopic colitis. She denies abdominal pain. She is coagulopathic. She denies a history of alcohol use or liver disease. Her rectal temp is currently 102.3. Stool spoecimen sent for occult blood is guaiac positive. - History Source History Provided By: Patient Limitations to Obtaining History: No Limitations - Past Medical History MANAGER CONVENTION: No: Alzheimer's Cardio/Vascular: Yes: AFIB (Paroxysmal), HTN, Hyperlipdemia Pulmonary: Yes: Asthma, COPD, O2 Dependent, Previously Intubated, Other (Trach) Gastrointestinal: Yes: GI Bleed Hepatobiliary: Yes: Other (Fatty Liver). No: Cirrhosis Renal/: Yes: Cancer (Uterine), Other ([place] in the past) Infectious Disease: Yes: C-Diff (june 2014), Other (Osteomyelitis of thoracic spine) Psych: Yes: Anxiety, Bipolar, Depression Musculoskeletal: Yes: Chronic low back pain, Other (multiple vertebral fractures ) Endocrine: Yes: Diabetes Mellitus, Hypothyroidism Additional Medical History: Frequent c/o abdominal pain-extensive w/u in the past negative. Presumed adhesions from prior surgeries. - Past Surgical History Past Surgical History: Yes: Appendectomy, Colectomy (By description, right colon resection with anastamosis noted on colonoscopy 2013), Hysterectomy (ADE/ BSO), Stent - Alcohol/Substance Use Hx Alcohol Use: No History of Substance Use: reports: Prescription - Smoking History Smoking history: Former smoker Have you smoked in the past 12 months: No Aproximately how many cigarettes per day: 3 If you are a former smoker, when did you quit?: 1997 - Social History Usual Living Arrangement: Jail 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) History of Recent Travel: No Home Medications - Allergies Allergies/Adverse Reactions: Allergies Allergy/AdvReac Type Severity Reaction Status Date / Time oxycodone [Oxycodone] Allergy Severe Nausea Verified 12/12/18 18:55 oxycodone HCl [From Percocet] Allergy Severe Nausea Verified 12/12/18 18:55 aspirin Allergy Mild Verified 12/12/18 18:55 blueberry [Blueberry] Allergy Mild Swelling Verified 12/12/18 18:55 fentanyl Allergy Mild Vomiting Verified 12/12/18 18:55 ibuprofen Allergy Swelling Verified 12/12/18 18:55 aspartame AdvReac Mild Itching Verified 12/12/18 18:55 - Home Medications Home Medications: Ambulatory Orders Albuterol Sulfate Inhaler - [Ventolin HFA Inhaler -] 2 puff IH Q4H PRN #0 inhaler 11/29/16 Acetaminophen [Tylenol .Regular Strength -] 650 mg PO Q6H PRN #0 tablet Apixaban [Eliquis -] 5 mg PO BID tablet 04/29/17 Baclofen 10 mg PO TID 07/09/18 Levothyroxine [Synthroid -] 50 mcg PO DAILY 07/09/18 Rosuvastatin Calcium [Crestor] 10 mg PO DAILY 07/09/18 Montelukast Na [Singulair -] 10 mg PO HS 08/07/18 Topiramate [Topamax -] 100 mg PO DAILY #30 tablet 08/15/18 Alprazolam [Xanax] 0.25 mg PO Q8H PRN tablet MDD 3 10/23/18 Cholecalciferol (Vitamin D3) [Vitamin D3 -] 1,000 unit PO DAILY tab 11/09/18 Cyanocobalamin Vit B-12 Inj. [Vitamin B12 Injection -] 1,000 mcg IM Q7D@1000 vial 11/09/18 Diltiazem Cd [Cardizem Cd -] 180 mg PO DAILY cap.cd.24h 11/09/18 Doxepin HCl [Sinequan -] 25 mg PO HS capsule 11/09/18 Ferrous Sulfate [Feosol] 325 mg PO BID ud 11/09/18 Nystatin Powder [Nystop Powder -] 1 applic TP DAILY applic 11/09/18 HYDROmorphone [Dilaudid -] 2 mg PO Q4H PRN 12/12/18 Insulin Sliding Scale [Novolog Vial Sliding Scale -] 0 units SQ TIDAC 12/12/18 Loperamide HCl [Loperamide] 2 mg PO HS PRN 12/12/18 Potassium Chloride 20 meq PO DAILY 12/12/18 Pramipexole Di-HCl [Mirapex] 0.5 mg PO TID 12/12/18 Ranitidine [Zantac -] 150 mg PO DAILY 12/12/18 Venlafaxine HCl ER [Effexor Xr -] 75 mg PO DAILY 12/12/18 Vitamin B Comp W-C [Nephro-Héctor -] 1 tablet PO DAILY 12/12/18 hydrOXYzine HCL [Atarax -] 10 mg PO BID PRN 12/12/18 Family Disease History - Family Disease History Family Disease History: Diabetes: Mother (Alive: heart surgery), Heart Disease: Mother, CA: Father (: leukemia), Other: Brother (2,Healthy), Sister (1, Healthy) Physical Exam-GI Vital Signs: Vital Signs Temperature 102.3 F H 12/14/18 10:00 Pulse Rate 112 H 12/14/18 10:00 Respiratory Rate 20 12/14/18 10:00 Blood Pressure 121/78 12/14/18 10:00 O2 Sat by Pulse Oximetry (%) 100 12/13/18 22:00 Constitutional: Yes: Calm Eyes: No: Sclera Icterus Cardiovascular: Yes: Tachycardia Respiratory: Yes: Diminished (at bases, poor insp. effort) Gastrointestinal Inspection: Yes: Scars (vertical abdominopelvic surgical scar) . No: Distention ...Auscultate: Yes: Normoactive Bowel Sounds ...Palpate: Yes: Soft. No: Hepatomegaly, Splenomegaly, Tenderness ...Percussion: No: Tympanitic ...Rectal Exam: Yes: Other (No external lesions, no masses, light brown stool, no blood, no melena) Edema: No (No LE edema) Neurological: Yes: Alert Labs: CBC, BMP 12/13/18 12:35 12/13/18 06:30 INR, PTT INR 3.45 (0.83-1.09) H 12/12/18 15:14 Problem List - Problems (1) Anemia Assessment/Plan: Ms. Umana anemia is chronic. The hgb of 11 is the outlying value and likely reflects hemoconcentration secondary to losses from current acute issues of fever / vomiting. There ios no overt bleeding. She is also coagulopathic with both PT/PTT being elevated. Normal platelet count does not suggest significant portal hypertension. Monitor for overt bleeding PPI given history of PUD Stool for C. Diff if diarrhea occurs Cardiology, hematology, ID, pulmonary and renal have been consulted Unclear what procedures were performed. They were done by Dr. Lund. Dr. Esparza resumes coverage 12/15 and can review old records . When acute issues are resolved and coaguloapthy corrected, repeat procedures could be considered Code(s): D64.9 - ANEMIA, UNSPECIFIED
[2018-12-14 19:06] LABS: ANION GAP 11 MMOL/L (8-16); BLOOD UREA NITROGEN 7 mg/dL (7-18); CALCIUM 7.4 mg/dL (8.5-10.1); CHLORIDE 112 mmol/L (98-107); CO2 23 mmol/L (21-32); CREATININE 1.5 mg/dL (0.55-1.3); GLUCOSE,RANDOM 77 mg/dL (74-106); POTASSIUM 3.7 mmol/L (3.5-5.1); SODIUM 146 mmol/L (136-145)
[2018-12-14] MEDS ORDERED: VANCOMYCIN 1 GRAM (PRE-DOCKED) 1,000 MG/250 ML BAG IVPB ONE (19:38)
--- NOTE | 2018-12-14 19:41 | PN ---
Progress Note (short form) - Note Progress Note: ID CONSULT DICTATED FEVER R/O SEPSIS SECONDARY TO SOURCE HX MRSA BACTEREMIA/ SEPSIS AWAIT C/S CONTINUE ZOSYN + STAT DOSE VANCOMYCIN
[2018-12-14] MEDS: MONTELUKAST NA 10 MG TABLET PO SCH (22:01)
[2018-12-14] MEDS: DOCUSATE SODIUM 100 MG CAPSULE (FP) PO SCH (22:02)
[2018-12-15] MEDS: ALBUTEROL SO4 2.5/IPRATROPIUM 0.5 INH SOL 3 ML VIAL.NEB. NEB SCH ×6 (00:10→21:00)
[2018-12-15] MEDS: HYDROmorphone HCL 2 MG TABLET PO PRN ×5 (00:36→20:21)
[2018-12-15] MEDS ORDERED: DEXTROSE 5%-WATER - 50 ML IVPB ONE ×3 (02:53→17:10)
[2018-12-15] MEDS ORDERED: PIPERACILLIN/TAZOBACTAM 2.25 GM VIAL IVPB ONE ×4 (02:53→17:10)
[2018-12-15] MEDS: PIPERACILLIN/TAZOB 2.25 GM 2.25 GM in DEXTROSE 5%-WATER - 50 ML IVPB SCH ×3 (03:20→17:31)
[2018-12-15] MEDS: METOCLOPRAMIDE HCL INJECTION 10 MG/2 ML VIAL IVPUSH SCH ×3 (06:42→21:40)
[2018-12-15] MEDS: LEVOTHYROXINE NA 50 MCG TABLET (FP) PO SCH (06:43)
[2018-12-15] MEDS: ACETAMINOPHEN 325 MG TABLET (FP) PO PRN (06:43)
[2018-12-15] MEDS: PRAMIPEXOLE DIHYDROCHLORIDE 0.25 MG TABLET PO SCH ×3 (06:43→21:40)
[2018-12-15 08:06] LABS: SERUM IRON SATURATION > 88 % (15-55); TOTAL IRON BINDING CAPACITY < 144 ug/dL (250-450); UIBC < 17 ug/dL (131-425)
--- NOTE | 2018-12-15 08:19 | PN ---
GI Progress Note Subjective: Patient examined lying in bed. Consult initially placed due to anemia, noted with drop in Hg from 11.0 to 7.8. Stool guaiac noted to be positive. Last EGD performed in 05/2016 with stomach biopsy showing mild to moderate chronic gastritis. Patient is complaining of LLQ pain with diarrhea. Diarrhea is non- bloody and occurs throughout day. Patient is currently on IV antibiotic treatment. C-diff toxin and antigen is negative. Elevated AST and alkaline phosphatase, pending abdominal US. s/p right hemicolectomy 10 years ago etiology unclear, last colonoscopy 2010 - Objective Vital Signs: Vital Signs Temperature 100.4 F H 12/15/18 05:58 Pulse Rate 87 12/15/18 07:30 Respiratory Rate 20 12/15/18 05:58 Blood Pressure 112/71 12/15/18 05:58 O2 Sat by Pulse Oximetry (%) 94 L 12/15/18 07:30 Constitutional: No Distress, Calm Eyes: Yes: Conjunctiva Clear Cardiovascular: Yes: Regular Rate and Rhythm Respiratory: Yes: Diminished, Other (trach with collar) Gastrointestinal Inspection: No: WNL, Ascites, Distention, Hernia, Scars, Other ...Auscultate: Yes: Normoactive Bowel Sounds. No: Hyperactive Bowel Sounds, Hypoactive Bowel Sounds, No Bowel Sounds, Other ...Palpate: Yes: Soft, Tenderness (LLQ). No: Firm/Rigid, Guarding, Hepatomegaly , Mass, Pulsatile Mass, Splenomegaly, Tenderness, Epigastium, Tenderness, Rebound, Other ...Percussion: Yes: Other (high tympany). No: Dullness, Fluid Wave, Tympanitic Neurological: Yes: Alert, Oriented Labs: CBC, BMP 12/13/18 12:35 12/14/18 13:21 INR, PTT INR 3.45 (0.83-1.09) H 12/12/18 15:14 Home Medication List Medication Instructions Recorded Confirmed Type Baclofen 10 mg PO TID 07/09/18 12/12/18 History Levothyroxine [Synthroid -] 50 mcg PO DAILY 07/09/18 12/12/18 History Rosuvastatin Calcium [Crestor] 10 mg PO DAILY 07/09/18 12/12/18 History Montelukast Na [Singulair -] 10 mg PO HS 08/07/18 12/12/18 History HYDROmorphone [Dilaudid -] 2 mg PO Q4H PRN 12/12/18 12/12/18 History Insulin Sliding Scale [Novolog 0 units SQ TIDAC 12/12/18 12/12/18 History Vial Sliding Scale -] Loperamide HCl [Loperamide] 2 mg PO HS PRN 12/12/18 12/12/18 History Potassium Chloride 20 meq PO DAILY 12/12/18 12/12/18 History Pramipexole Di-HCl [Mirapex] 0.5 mg PO TID 12/12/18 12/12/18 History Ranitidine [Zantac -] 150 mg PO DAILY 12/12/18 12/12/18 History Venlafaxine HCl ER [Effexor Xr -] 75 mg PO DAILY 12/12/18 12/12/18 History Vitamin B Comp W-C [Nephro-Héctor -] 1 tablet PO DAILY 12/12/18 12/12/18 History hydrOXYzine HCL [Atarax -] 10 mg PO BID PRN 12/12/18 12/12/18 History Active Medications Generic Name Dose Route Start Last Admin Trade Name Freq PRN Reason Stop Dose Admin Acetaminophen 650 mg 12/14/18 12:44 12/15/18 06:43 Tylenol - PO 650 mg Q4H PRN Administration PAIN OR FEVER Albuterol/Ipratropium 1 amp 12/14/18 13:00 12/15/18 07:35 Duoneb - NEB 1 amp RQ4H EMMY Administration Alprazolam 0.25 mg 12/13/18 11:24 12/14/18 11:05 Xanax - PO 0.25 mg Q8H PRN Administration ANXIETY Ascorbic Acid 500 mg 12/14/18 10:00 12/14/18 10:55 Vitamin C - PO 500 mg DAILY EMMY Administration Docusate Sodium 300 mg 12/13/18 22:00 12/14/18 22:02 Colace - PO Not Given HS [facility] Ferrous Sulfate 325 mg 12/13/18 22:00 12/14/18 22:02 Feosol - PO 325 mg BID EMMY Administration Guaifenesin 10 ml 12/14/18 12:46 Robitussin Dm - PO Q4H PRN COUGH Hydromorphone HCl 2 mg 12/13/18 11:22 12/15/18 04:11 Dilaudid - PO 2 mg Q4H PRN Administration PAIN LEVEL 7 - 10 Piperacillin Sod/Tazobactam 50 mls @ 100 mls/hr 12/13/18 15:45 12/15/18 03:20 Sod 2.25 gm/ Dextrose IVPB 100 mls/hr Q8H-IV EMMY Administration Protocol Pantoprazole Sodium 40 mg/ 100 mls @ 200 mls/hr 12/15/18 10:00 Sodium Chloride IVPB DAILY EMMY Levothyroxine Sodium 50 mcg 12/14/18 07:00 12/15/18 06:43 Synthroid - PO 50 mcg DAILY@0700 EMMY Administration Metoclopramide HCl 10 mg 12/14/18 13:15 12/15/18 06:42 Reglan Injection - IVPUSH 10 mg Q8H EMMY Administration Montelukast Sodium 10 mg 12/13/18 22:00 12/14/18 22:01 Singulair - PO 10 mg HS EMMY Administration Pramipexole Dihydrochloride 0.25 mg 12/13/18 14:00 12/15/18 06:43 Mirapex - PO 0.25 mg TID EMMY Administration Topiramate 100 mg 12/14/18 10:00 12/14/18 10:55 Topamax - PO 100 mg DAILY EMMY Administration Venlafaxine HCl 75 mg 12/14/18 10:00 12/14/18 10:55 Effexor Xr - PO 75 mg DAILY EMMY Administration Problem List - Problems (1) Anemia Assessment/Plan: etiology unclear R> will need colonoscopy Code(s): D64.9 - ANEMIA, UNSPECIFIED (2) Diarrhea Assessment/Plan: possibly secondary to previous hemicolectomy causing small bowel bacterial overgrowth and decreased capacity of the colon to reabsorb the water >R imodium 2mg TID PRN after loose stool Cholestyramine 4g PO mixed in 8oz of water Code(s): R19.7 - DIARRHEA, UNSPECIFIED
[2018-12-15 08:39] LABS: BASO % 0.7 % (0-2.0); EOS % 1.8 % (0-4.5); HEMATOCRIT 29.5 % (32.4-45.2); HEMOGLOBIN 9.7 GM/dL (10.7-15.3); LYMPH % 18.2 % (8-40); MCH 31.6 pg (25.7-33.7); MEAN CELL VOLUME 95.8 fl (80-96); MEAN PLT VOLUME 9.2 fl (7.5-11.1); MONO % 6.4 % (3.8-10.2); NEUT % 72.9 % (42.8-82.8); PLATELET COUNT 187 K/MM3 (134-434); RBC 3.08 M/mm3 (3.60-5.2); RDW 23.3 % (11.6-15.6); WHITE BLOOD COUNT 11.3 K/mm3 (4.0-10.0)
[2018-12-15 08:53] LABS: INR 1.8 (0.83-1.09); PROTHROMBIN TIME (PATIENT) 21.4 SEC (9.7-13.0)
[2018-12-15] MEDS ORDERED: PT OWN MED DRAWER 7, Y5N ONE ×3 (09:10→16:51)
--- NOTE | 2018-12-15 09:10 | CONSULT ---
Consult Consult Specialty:: Nephrology Referred by:: Cindy Garza Reason for Consultation:: LEEANNA - History of Present Illness Chief Complaint: AMS and Fever History of Present Illness: Pt is a 53 y/o F with PMHx of: Chronic Respiratory Failure s/p Tracheostomy, Asthma, COPD, O2 Dep, HTN, A-fib (on Eliquis), HLD, Hypothyroidism, DM, GI Bleed , Uterine Ca, Renal Stents, Bipolar, Depression, Chronic Pain, Decubitus Ulcer brought in from [facility] for AMS, Fever 102.0 and found to have sepsis secondary to UTI. Pt came in with Cr-1.6 , culture is positive for UTI, this am Cr-1.5. With baseline 0.9-1.0 in past. Pt has not received any fluids. Had fever this am. Now improved mentally, alert, oriented although non verbal ( mouths and writes) due to tracheostomy. - History Source History Provided By: Patient, Medical Record Limitations to Obtaining History: Physical Impairment - Past Medical History FLAT KNITTER: No: Alzheimer's Cardio/Vascular: Yes: AFIB (Paroxysmal), HTN, Hyperlipdemia Pulmonary: Yes: Asthma, COPD, O2 Dependent, Previously Intubated, Other (Trach) Gastrointestinal: Yes: GI Bleed Hepatobiliary: Yes: Other (Fatty Liver). No: Cirrhosis Renal/: Yes: Cancer (Uterine), Other ([place] in the past) Infectious Disease: Yes: C-Diff (june 2014), Other (Osteomyelitis of thoracic spine) Psych: Yes: Anxiety, Bipolar, Depression Musculoskeletal: Yes: Chronic low back pain, Other (multiple vertebral fractures ) Endocrine: Yes: Diabetes Mellitus, Hypothyroidism Additional Medical History: Frequent c/o abdominal pain-extensive w/u in the past negative. Presumed adhesions from prior surgeries. - Past Surgical History Past Surgical History: Yes: Appendectomy, Colectomy (By description, right colon resection with anastamosis noted on colonoscopy 2013), Hysterectomy (ADE/ BSO), Stent - Alcohol/Substance Use Hx Alcohol Use: No History of Substance Use: reports: Prescription - Smoking History Smoking history: Former smoker Have you smoked in the past 12 months: No Aproximately how many cigarettes per day: 3 If you are a former smoker, when did you quit?: 1997 - Social History Usual Living Arrangement: [facility] 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) History of Recent Travel: No Home Medications - Allergies Allergies/Adverse Reactions: Allergies Allergy/AdvReac Type Severity Reaction Status Date / Time oxycodone [Oxycodone] Allergy Severe Nausea Verified 12/12/18 18:55 oxycodone HCl [From Percocet] Allergy Severe Nausea Verified 12/12/18 18:55 aspirin Allergy Mild Verified 12/12/18 18:55 blueberry [Blueberry] Allergy Mild Swelling Verified 12/12/18 18:55 fentanyl Allergy Mild Vomiting Verified 12/12/18 18:55 ibuprofen Allergy Swelling Verified 12/12/18 18:55 aspartame AdvReac Mild Itching Verified 12/12/18 18:55 - Home Medications Home Medications: Ambulatory Orders Albuterol Sulfate Inhaler - [Ventolin HFA Inhaler -] 2 puff IH Q4H PRN #0 inhaler 11/29/16 Acetaminophen [Tylenol .Regular Strength -] 650 mg PO Q6H PRN #0 tablet Apixaban [Eliquis -] 5 mg PO BID tablet 04/29/17 Baclofen 10 mg PO TID 07/09/18 Levothyroxine [Synthroid -] 50 mcg PO DAILY 07/09/18 Rosuvastatin Calcium [Crestor] 10 mg PO DAILY 07/09/18 Montelukast Na [Singulair -] 10 mg PO HS 08/07/18 Topiramate [Topamax -] 100 mg PO DAILY #30 tablet 08/15/18 Alprazolam [Xanax] 0.25 mg PO Q8H PRN tablet MDD 3 10/23/18 Cholecalciferol (Vitamin D3) [Vitamin D3 -] 1,000 unit PO DAILY tab 11/09/18 Cyanocobalamin Vit B-12 Inj. [Vitamin B12 Injection -] 1,000 mcg IM Q7D@1000 vial 11/09/18 Diltiazem Cd [Cardizem Cd -] 180 mg PO DAILY cap.cd.24h 11/09/18 Doxepin HCl [Sinequan -] 25 mg PO HS capsule 11/09/18 Ferrous Sulfate [Feosol] 325 mg PO BID ud 11/09/18 Nystatin Powder [Nystop Powder -] 1 applic TP DAILY applic 11/09/18 HYDROmorphone [Dilaudid -] 2 mg PO Q4H PRN 12/12/18 Insulin Sliding Scale [Novolog Vial Sliding Scale -] 0 units SQ TIDAC 12/12/18 Loperamide HCl [Loperamide] 2 mg PO HS PRN 12/12/18 Potassium Chloride 20 meq PO DAILY 12/12/18 Pramipexole Di-HCl [Mirapex] 0.5 mg PO TID 12/12/18 Ranitidine [Zantac -] 150 mg PO DAILY 12/12/18 Venlafaxine HCl ER [Effexor Xr -] 75 mg PO DAILY 12/12/18 Vitamin B Comp W-C [Nephro-Héctor -] 1 tablet PO DAILY 12/12/18 hydrOXYzine HCL [Atarax -] 10 mg PO BID PRN 12/12/18 Family Disease History - Family Disease History Family Disease History: Diabetes: Mother (Alive: heart surgery), Heart Disease: Mother, CA: Father (: leukemia), Other: Brother (2,Healthy), Sister (1, Healthy) Physical Exam Vital Signs: Vital Signs Temperature 100.4 F H 12/15/18 05:58 Pulse Rate 87 12/15/18 07:30 Respiratory Rate 20 12/15/18 05:58 Blood Pressure 112/71 12/15/18 05:58 O2 Sat by Pulse Oximetry (%) 94 L 12/15/18 07:30 Constitutional: Yes: No Distress Eyes: Yes: Conjunctiva Clear HENT: Yes: Other (Dry mucous membranes) Neck: Yes: Supple Cardiovascular: Yes: Regular Rate and Rhythm, S1, S2 Respiratory: Yes: CTA Bilaterally Gastrointestinal: Yes: Soft Renal/: No: Anuria, Bladder Distention Musculoskeletal: Yes: Muscle Weakness (Lower extremity weakness) Edema: No Neurological: Yes: Alert, Oriented. No: Confusion ...Motor Strength: RUE (wnl), RLE (wnl) Psychiatric: Yes: Alert, Oriented Assessment/Plan Ambulatory Orders Albuterol Sulfate Inhaler - [Ventolin HFA Inhaler -] 2 puff IH Q4H PRN #0 inhaler 11/29/16 Acetaminophen [Tylenol .Regular Strength -] 650 mg PO Q6H PRN #0 tablet Apixaban [Eliquis -] 5 mg PO BID tablet 04/29/17 Baclofen 10 mg PO TID 07/09/18 Levothyroxine [Synthroid -] 50 mcg PO DAILY 07/09/18 Rosuvastatin Calcium [Crestor] 10 mg PO DAILY 07/09/18 Montelukast Na [Singulair -] 10 mg PO HS 08/07/18 Topiramate [Topamax -] 100 mg PO DAILY #30 tablet 08/15/18 Alprazolam [Xanax] 0.25 mg PO Q8H PRN tablet MDD 3 10/23/18 Cholecalciferol (Vitamin D3) [Vitamin D3 -] 1,000 unit PO DAILY tab 11/09/18 Cyanocobalamin Vit B-12 Inj. [Vitamin B12 Injection -] 1,000 mcg IM Q7D@1000 vial 11/09/18 Diltiazem Cd [Cardizem Cd -] 180 mg PO DAILY cap.cd.24h 11/09/18 Doxepin HCl [Sinequan -] 25 mg PO HS capsule 11/09/18 Ferrous Sulfate [Feosol] 325 mg PO BID ud 11/09/18 Nystatin Powder [Nystop Powder -] 1 applic TP DAILY applic 11/09/18 HYDROmorphone [Dilaudid -] 2 mg PO Q4H PRN 12/12/18 Insulin Sliding Scale [Novolog Vial Sliding Scale -] 0 units SQ TIDAC 12/12/18 Loperamide HCl [Loperamide] 2 mg PO HS PRN 12/12/18 Potassium Chloride 20 meq PO DAILY 12/12/18 Pramipexole Di-HCl [Mirapex] 0.5 mg PO TID 12/12/18 Ranitidine [Zantac -] 150 mg PO DAILY 12/12/18 Venlafaxine HCl ER [Effexor Xr -] 75 mg PO DAILY 12/12/18 Vitamin B Comp W-C [Nephro-Héctor -] 1 tablet PO DAILY 12/12/18 hydrOXYzine HCL [Atarax -] 10 mg PO BID PRN 12/12/18 Current Medications Acetaminophen (Tylenol -) 650 mg PO Q4H PRN PRN Reason: PAIN OR FEVER Last Admin: 12/15/18 06:43 Dose: 650 mg Albuterol/Ipratropium (Duoneb -) 1 amp NEB RQ4H EMMY Last Admin: 12/15/18 07:35 Dose: 1 amp Alprazolam (Xanax -) 0.25 mg PO Q8H PRN PRN Reason: ANXIETY Last Admin: 12/14/18 11:05 Dose: 0.25 mg Ascorbic Acid (Vitamin C -) 500 mg PO DAILY [facility] Last Admin: 12/15/18 09:18 Dose: 500 mg Ferrous Sulfate (Feosol -) 325 mg PO BID [facility] Last Admin: 12/15/18 09:18 Dose: 325 mg Guaifenesin (Robitussin Dm -) 10 ml PO Q4H PRN PRN Reason: COUGH Hydromorphone HCl (Dilaudid -) 2 mg PO Q4H PRN PRN Reason: PAIN LEVEL 7 - 10 Last Admin: 12/15/18 09:18 Dose: 2 mg Piperacillin Sod/Tazobactam (Sod 2.25 gm/ Dextrose) 50 mls @ 100 mls/hr IVPB Q8H-IV EMMY; Protocol Last Admin: 12/15/18 09:43 Dose: 100 mls/hr Pantoprazole Sodium 40 mg/ (Sodium Chloride) 100 mls @ 200 mls/hr IVPB DAILY [facility] Last Admin: 12/15/18 09:44 Dose: 200 mls/hr Sodium Chloride (Normal Saline -) 1,000 mls @ 75 mls/hr IV ASDIR [facility] Lactobacillus Acidophilus (Bacid -) 1 tab PO DAILY [facility] Levothyroxine Sodium (Synthroid -) 50 mcg PO DAILY@0700 [facility] Last Admin: 12/15/18 06:43 Dose: 50 mcg Metoclopramide HCl (Reglan Injection -) 10 mg IVPUSH Q8H [facility] Last Admin: 12/15/18 06:42 Dose: 10 mg Montelukast Sodium (Singulair -) 10 mg PO HS [facility] Last Admin: 12/14/18 22:01 Dose: 10 mg Pramipexole Dihydrochloride (Mirapex -) 0.25 mg PO TID [facility] Last Admin: 12/15/18 06:43 Dose: 0.25 mg Topiramate (Topamax -) 100 mg PO DAILY [facility] Last Admin: 12/15/18 09:19 Dose: 100 mg Venlafaxine HCl (Effexor Xr -) 75 mg PO DAILY [facility] Last Admin: 12/15/18 09:19 Dose: 75 mg Pt is a 53 y/o F with PMHx of: Chronic Respiratory Failure s/p Tracheostomy, Asthma, COPD, O2 Dep, HTN, A-fib (on Eliquis), HLD, Hypothyroidism, DM, GI Bleed , Uterine Ca, Renal Stents, Bipolar, Depression, Chronic Pain, Decubitus Ulcer brought in from [facility] for AMS, Fever 102.0 and found to have sepsis secondary to UTI. Chronic Respiratory Failure s/p Tracheostomy, Asthma, COPD, O2 Dep, HTN, A-fib (on Eliquis), HLD, Hypothyroidism, DM, GI Bleed, Uterine Ca, Renal Stents, Bipolar, Depression, Chronic Pain, Decubitus Ulcer sepsis secondary to UTI. LEEANNA Plan: Likely prerenal in setting of sepsis IVF NS @75ml/hr Urine lytes, cr Renal US BMP Avoid nephrotoxic drugs Will Follow D/W Dr Olmedo Visit type - Emergency Visit Emergency Visit: Yes ED Registration Date: 12/12/18 Care time: The patient presented to the Emergency Department on the above date and was hospitalized for further evaluation of their emergent condition. - New Patient This patient is new to me today: Yes Date on this admission: 12/15/18 - Critical Care Critical Care patient: No
[2018-12-15] MEDS: ASCORBIC ACID 500 MG TABLET (FP) PO SCH (09:18)
[2018-12-15] MEDS: FERROUS SO4 325 MG TABLET (FP) PO SCH ×2 (09:18→21:40)
[2018-12-15] MEDS: VENLAFAXINE HCL 75 MG E.R. CAPSULES (FP) PO SCH (09:19)
[2018-12-15] MEDS: TOPIRAMATE 100 MG TABLET PO SCH (09:19)
[2018-12-15] MEDS ORDERED: PANTOPRAZOLE SODIUM 40 MG VIAL ONE (09:27)
[2018-12-15] MEDS ORDERED: SODIUM CHLORIDE 100 ML IVPB ONE (09:27)
[2018-12-15] MEDS: PANTOPRAZOLE SODIUM 40 MG in SODIUM CHLORIDE 100 ML IVPB SCH (09:44)
[2018-12-15] MEDS ORDERED: SODIUM CHLORIDE 1,000 ML IV SCH (10:00)
[2018-12-15 10:16] LABS: ALBUMIN 1.8 g/dl (3.4-5.0); ALK PHOS 206 U/L (45-117); ANION GAP 11 MMOL/L (8-16); BILIRUBIN,TOTAL 1.2 mg/dL (0.2-1); BLOOD UREA NITROGEN 7 mg/dL (7-18); CALCIUM 7.1 mg/dL (8.5-10.1); CHLORIDE 112 mmol/L (98-107); CO2 24 mmol/L (21-32); CREATININE 1.4 mg/dL (0.55-1.3); GLUCOSE,RANDOM 69 mg/dL (74-106); POTASSIUM 3.1 mmol/L (3.5-5.1); SGOT/AST 46 U/L (15-37); SGPT/ALT 27 U/L (13-61); SODIUM 146 mmol/L (136-145); TOT PROT 5.4 g/dl (6.4-8.2)
[2018-12-15] MEDS: ALPRAZolam 0.25 MG TABLET PO PRN ×2 (10:17→18:30)
[2018-12-15] MEDS: LACTOBACILLUS ACIDOPHILUS 1 TABLET PO SCH (10:18)
--- NOTE | 2018-12-15 11:18 | PN ---
Teaching Attending Note Name of Resident: Liz Faria (Nephrology) ATTENDING PHYSICIAN STATEMENT I saw and evaluated the patient. I reviewed the resident's note and discussed the case with the resident. I agree with the resident's findings and plan as documented. Renal Pt is a 53 year old female with pmhx listed who presents to the ER with altered mental status and fever. I was called to evaluate her for LEEANNA. She as chronic resp failure and is on a trache. She is awake and appears comfortable. She says that her appetite is improved. pmhx Chronic Respiratory Failure s/p Tracheostomy, Asthma, COPD, O2 Dep, HTN, A-fib (on Eliquis), HLD, Hypothyroidism, DM, GI Bleed, Uterine Ca, Renal Stents , Bipolar, Depression, Chronic Pain, Decubitus Ulcer Current Medications Generic Name Dose Route Start Last Admin Trade Name Freq PRN Reason Stop Dose Admin Acetaminophen 650 mg 12/14/18 12:44 12/15/18 06:43 Tylenol - PO 650 mg Q4H PRN Administration PAIN OR FEVER Albuterol/Ipratropium 1 amp 12/14/18 13:00 12/15/18 07:35 Duoneb - NEB 1 amp RQ4H EMMY Administration Alprazolam 0.25 mg 12/13/18 11:24 12/15/18 10:17 Xanax - PO 0.25 mg Q8H PRN Administration ANXIETY Ascorbic Acid 500 mg 12/14/18 10:00 12/15/18 09:18 Vitamin C - PO 500 mg DAILY EMMY Administration Ferrous Sulfate 325 mg 12/13/18 22:00 12/15/18 09:18 Feosol - PO 325 mg BID EMMY Administration Guaifenesin 10 ml 12/14/18 12:46 Robitussin Dm - PO Q4H PRN COUGH Hydromorphone HCl 2 mg 12/13/18 11:22 12/15/18 09:18 Dilaudid - PO 2 mg Q4H PRN Administration PAIN LEVEL 7 - 10 Piperacillin Sod/Tazobactam 50 mls @ 100 mls/hr 12/13/18 15:45 12/15/18 09:43 Sod 2.25 gm/ Dextrose IVPB 100 mls/hr Q8H-IV EMMY Administration Protocol Pantoprazole Sodium 40 mg/ 100 mls @ 200 mls/hr 12/15/18 10:00 12/15/18 09:44 Sodium Chloride IVPB 200 mls/hr DAILY EMMY Administration Sodium Chloride 1,000 mls @ 75 mls/hr 12/15/18 10:00 Normal Saline - IV ASDIR EMMY Lactobacillus Acidophilus 1 tab 12/15/18 10:00 Bacid - PO DAILY EMMY Levothyroxine Sodium 50 mcg 12/14/18 07:00 12/15/18 06:43 Synthroid - PO 50 mcg DAILY@0700 EMMY Administration Metoclopramide HCl 10 mg 12/14/18 13:15 12/15/18 06:42 Reglan Injection - IVPUSH 10 mg Q8H EMMY Administration Montelukast Sodium 10 mg 12/13/18 22:00 12/14/18 22:01 Singulair - PO 10 mg HS EMMY Administration Pramipexole Dihydrochloride 0.25 mg 12/13/18 14:00 12/15/18 06:43 Mirapex - PO 0.25 mg TID EMMY Administration Topiramate 100 mg 12/14/18 10:00 12/15/18 09:19 Topamax - PO 100 mg DAILY EMMY Administration Venlafaxine HCl 75 mg 12/14/18 10:00 12/15/18 09:19 Effexor Xr - PO 75 mg DAILY EMMY Administration Laboratory Tests 12/15/18 12/15/18 08:20 08:20 WBC 11.3 H Hgb 9.7 L Plt Count 187 Potassium 3.1 L Creatinine 1.4 H Last Vital Signs Temp Pulse Resp BP Pulse Ox 100.4 F H 87 20 112/71 94 L 12/15/18 05:58 12/15/18 07:30 12/15/18 05:58 12/15/18 05:58 12/15/18 07:30 cardio s1s2 pulm trache GI soft ext neg edema skin tatoo Impression 1. leeanna 2. hypokalemia 3. resp failure 4. asthma 5. copd 6. htn 7. a-fib Plan - replace potassium - check mag - 1/2 ns - repeat labs in am - follow ultrasound Dr Olmedo
--- NOTE | 2018-12-15 11:55 | PN ---
Progress Note, Physician Chief Complaint: Sepsis Anemia LEEANNA History of Present Illness: Previous notes and events reviewed awake and alert NAD afebrile WBC trending down - Current Medication List Current Medications: Active Medications Acetaminophen (Tylenol -) 650 mg PO Q4H PRN PRN Reason: PAIN OR FEVER Last Admin: 12/15/18 06:43 Dose: 650 mg Albuterol/Ipratropium (Duoneb -) 1 amp NEB RQ4H [facility] Last Admin: 12/15/18 11:25 Dose: 1 amp Alprazolam (Xanax -) 0.25 mg PO Q8H PRN PRN Reason: ANXIETY Last Admin: 12/15/18 10:17 Dose: 0.25 mg Ascorbic Acid (Vitamin C -) 500 mg PO DAILY [facility] Last Admin: 12/15/18 09:18 Dose: 500 mg Ferrous Sulfate (Feosol -) 325 mg PO BID [facility] Last Admin: 12/15/18 09:18 Dose: 325 mg Guaifenesin (Robitussin Dm -) 10 ml PO Q4H PRN PRN Reason: COUGH Hydromorphone HCl (Dilaudid -) 2 mg PO Q4H PRN PRN Reason: PAIN LEVEL 7 - 10 Last Admin: 12/15/18 09:18 Dose: 2 mg Piperacillin Sod/Tazobactam (Sod 2.25 gm/ Dextrose) 50 mls @ 100 mls/hr IVPB Q8H-IV [facility]; Protocol Last Admin: 12/15/18 09:43 Dose: 100 mls/hr Pantoprazole Sodium 40 mg/ (Sodium Chloride) 100 mls @ 200 mls/hr IVPB DAILY [facility] Last Admin: 12/15/18 09:44 Dose: 200 mls/hr Sodium Chloride (1/2 Normal Saline) 1,000 mls @ 75 mls/hr IV ASDIR [facility] Lactobacillus Acidophilus (Bacid -) 1 tab PO DAILY [facility] Last Admin: 12/15/18 10:18 Dose: 1 tab Levothyroxine Sodium (Synthroid -) 50 mcg PO DAILY@0700 [facility] Last Admin: 12/15/18 06:43 Dose: 50 mcg Metoclopramide HCl (Reglan Injection -) 10 mg IVPUSH Q8H [facility] Last Admin: 12/15/18 06:42 Dose: 10 mg Montelukast Sodium (Singulair -) 10 mg PO HS [facility] Last Admin: 12/14/18 22:01 Dose: 10 mg Potassium Chloride (Potassium Chloride Oral Liquid) 40 meq PO ONCE ONE Stop: 12/15/18 11:19 Pramipexole Dihydrochloride (Mirapex -) 0.25 mg PO TID [facility] Last Admin: 12/15/18 06:43 Dose: 0.25 mg Topiramate (Topamax -) 100 mg PO DAILY [facility] Last Admin: 12/15/18 09:19 Dose: 100 mg Venlafaxine HCl (Effexor Xr -) 75 mg PO DAILY [facility] Last Admin: 12/15/18 09:19 Dose: 75 mg - Objective Vital Signs: Vital Signs Temperature 100.4 F H 12/15/18 05:58 Pulse Rate 87 12/15/18 07:30 Respiratory Rate 20 12/15/18 05:58 Blood Pressure 112/71 12/15/18 05:58 O2 Sat by Pulse Oximetry (%) 94 L 12/15/18 07:30 Constitutional: Yes: No Distress, Calm Eyes: Yes: Conjunctiva Clear Cardiovascular: Yes: Regular Rate and Rhythm Respiratory: Yes: Rhonchi, Other (O2 via trach collar) Gastrointestinal: Yes: Normal Bowel Sounds, Soft Genitourinary: Yes: Incontinence Musculoskeletal: Yes: Muscle Weakness Edema: No Neurological: Yes: Alert, Oriented Psychiatric: Yes: Alert, Oriented Labs: CBC, BMP 12/15/18 08:20 12/15/18 08:20 INR, PTT INR 1.80 (0.83-1.09) H 12/15/18 08:20 Microbiology 12/13/18 04:30 Gram Stain - Final Sputum - Endotracheal Suction W/O Vent Sputum Culture - Final NORMAL RESPIRATORY LEANA 12/12/18 16:00 Urine Culture - Final Urine - Urine Clean Catch Morganella Morganii 12/14/18 12:30 Clostridium difficile Antigen ([facility]) - Final Stool Clostridium difficile Toxin Assay - Final 12/12/18 15:08 Blood Culture - Preliminary Blood - Peripheral Venous NO GROWTH OBTAINED AFTER 48 HOURS, INCUBATION TO CONTINUE FOR 3 DAYS. 12/12/18 15:08 Blood Culture - Preliminary Blood - Peripheral Venous NO GROWTH OBTAINED AFTER 48 HOURS, INCUBATION TO CONTINUE FOR 3 DAYS. <Nan Coulter - Last Filed: 12/15/18 12:03> - Current Medication List Current Medications: Active Medications Acetaminophen (Tylenol -) 650 mg PO Q4H PRN PRN Reason: PAIN OR FEVER Last Admin: 12/18/18 21:50 Dose: 650 mg Albuterol/Ipratropium (Duoneb -) 1 amp NEB RQ4H [facility] Last Admin: 12/19/18 07:52 Dose: 1 amp Apixaban (Eliquis -) 5 mg PO BID [facility] Ascorbic Acid (Vitamin C -) 500 mg PO DAILY [facility] Last Admin: 12/18/18 10:55 Dose: 500 mg Cholestyramine Resin (Questran Light Packet -) 4 gm PO DAILY [facility] Last Admin: 12/18/18 10:55 Dose: 4 gm Ferrous Sulfate (Feosol -) 325 mg PO BID [facility] Last Admin: 12/18/18 21:44 Dose: 325 mg Guaifenesin (Robitussin Dm -) 10 ml PO Q4H PRN PRN Reason: COUGH Pantoprazole Sodium 40 mg/ (Sodium Chloride) 100 mls @ 200 mls/hr IVPB DAILY [facility] Last Admin: 12/18/18 09:28 Dose: Not Given Lactobacillus Acidophilus (Bacid -) 1 tab PO DAILY [facility] Last Admin: 12/18/18 10:55 Dose: Not Given Levothyroxine Sodium (Synthroid -) 50 mcg PO DAILY@0700 [facility] Last Admin: 12/19/18 06:02 Dose: 50 mcg Loperamide HCl (Imodium -) 2 mg PO Q8H PRN PRN Reason: DIARRHEA Last Admin: 12/15/18 16:54 Dose: 2 mg Metoclopramide HCl (Reglan Injection -) 10 mg IVPUSH Q8H [facility] Last Admin: 12/19/18 05:54 Dose: Not Given Montelukast Sodium (Singulair -) 10 mg PO HS [facility] Last Admin: 12/18/18 21:44 Dose: 10 mg Pramipexole Dihydrochloride (Mirapex -) 0.25 mg PO TID [facility] Last Admin: 12/19/18 05:55 Dose: 0.25 mg Topiramate (Topamax -) 100 mg PO DAILY [facility] Last Admin: 12/18/18 10:57 Dose: 100 mg Venlafaxine HCl (Effexor Xr -) 75 mg PO DAILY [facility] Last Admin: 12/18/18 10:57 Dose: Not Given - Objective Vital Signs: Vital Signs Temperature 99.2 F 12/19/18 08:45 Pulse Rate 125 H 12/19/18 08:45 Respiratory Rate 22 H 12/19/18 08:45 Blood Pressure 127/86 12/19/18 08:45 O2 Sat by Pulse Oximetry (%) 99 12/19/18 07:51 Labs: CBC, BMP 12/18/18 07:50 12/18/18 07:50 INR, PTT INR 1.80 (0.83-1.09) H 12/15/18 08:20 <Kaz Goel - Last Filed: 12/19/18 09:15> Problem List - Problems (1) LEEANNA (acute kidney injury) Code(s): N17.9 - ACUTE KIDNEY FAILURE, UNSPECIFIED (2) Diarrhea Code(s): R19.7 - DIARRHEA, UNSPECIFIED (3) Sepsis Code(s): A41.9 - SEPSIS, UNSPECIFIED ORGANISM Qualifiers: Sepsis type: sepsis due to unspecified organism Qualified Code(s): A41.9 - Sepsis, unspecified organism (4) UTI (urinary tract infection) Code(s): N39.0 - URINARY TRACT INFECTION, SITE NOT SPECIFIED Qualifiers: Urinary tract infection type: acute cystitis Hematuria presence: without hematuria Qualified Code(s): N30.00 - Acute cystitis without hematuria (5) Acute and chronic respiratory failure with hypoxia Code(s): J96.21 - ACUTE AND CHRONIC RESPIRATORY FAILURE WITH HYPOXIA <Nan Coulter - Last Filed: 12/15/18 12:03> Assessment/Plan -ID on board, cont IV ABT -cont contact precautions -nephrology on board -K+ 3.1, KCl 40mEq PO, -Mg level ordered -pending renal and abdominal US -stool OB positive, GI on board -monitor H/H, pmhx of anemia, cont PO feosol -suction as needed -cont singulair, albuterol neb tx PRN -keep SpO2 >90% -pulm on board -dvt ppx <Nan Coulter - Last Filed: 12/15/18 12:03> PATIENT SEEN AND EXAMINED AND I AGREE WITH THE ABOVE NOTE <Kaz Goel - Last Filed: 12/19/18 09:15>
[2018-12-15] MEDS ORDERED: KCL 10 MEQ IVPB 10 MEQ/100 ML INFUS.BAG IVPB SCH (12:00)
[2018-12-15] MEDS ORDERED: POTASSIUM CHLORIDE ORAL LIQUID 20 MEQ/15 ML PO ONE (12:00)
[2018-12-15] MEDS: SODIUM CHLORIDE 0.45% 1,000 ML IV SCH (12:30)
[2018-12-15 14:09] LABS: ANISOCYTOSIS 2+; MACROCYTOSIS 0; PLATELET ESTIMATE NORMAL
[2018-12-15] MEDS ORDERED: LOPERAMIDE HCL 2 MG CAPSULE PO PRN (15:07)
--- NOTE | 2018-12-15 15:42 | PN ---
Progress Note, Physician History of Present Illness: pulmonary alert,no distress,-sob - Current Medication List Current Medications: Active Medications Acetaminophen (Tylenol -) 650 mg PO Q4H PRN PRN Reason: PAIN OR FEVER Last Admin: 12/15/18 06:43 Dose: 650 mg Albuterol/Ipratropium (Duoneb -) 1 amp NEB RQ4H [facility] Last Admin: 12/15/18 11:25 Dose: 1 amp Alprazolam (Xanax -) 0.25 mg PO Q8H PRN PRN Reason: ANXIETY Last Admin: 12/15/18 10:17 Dose: 0.25 mg Ascorbic Acid (Vitamin C -) 500 mg PO DAILY [facility] Last Admin: 12/15/18 09:18 Dose: 500 mg Cholestyramine Resin (Questran Light Packet -) 4 gm PO BID [facility] Ferrous Sulfate (Feosol -) 325 mg PO BID [facility] Last Admin: 12/15/18 09:18 Dose: 325 mg Guaifenesin (Robitussin Dm -) 10 ml PO Q4H PRN PRN Reason: COUGH Hydromorphone HCl (Dilaudid -) 2 mg PO Q4H PRN PRN Reason: PAIN LEVEL 7 - 10 Last Admin: 12/15/18 13:25 Dose: 2 mg Piperacillin Sod/Tazobactam (Sod 2.25 gm/ Dextrose) 50 mls @ 100 mls/hr IVPB Q8H-IV [facility]; Protocol Last Admin: 12/15/18 09:43 Dose: 100 mls/hr Pantoprazole Sodium 40 mg/ (Sodium Chloride) 100 mls @ 200 mls/hr IVPB DAILY [facility] Last Admin: 12/15/18 09:44 Dose: 200 mls/hr Sodium Chloride (1/2 Normal Saline) 1,000 mls @ 75 mls/hr IV ASDIR [facility] Last Admin: 12/15/18 12:30 Dose: 75 mls/hr Lactobacillus Acidophilus (Bacid -) 1 tab PO DAILY [facility] Last Admin: 12/15/18 10:18 Dose: 1 tab Levothyroxine Sodium (Synthroid -) 50 mcg PO DAILY@0700 [facility] Last Admin: 12/15/18 06:43 Dose: 50 mcg Loperamide HCl (Imodium -) 2 mg PO Q8H PRN PRN Reason: DIARRHEA Metoclopramide HCl (Reglan Injection -) 10 mg IVPUSH Q8H [facility] Last Admin: 12/15/18 13:30 Dose: 10 mg Montelukast Sodium (Singulair -) 10 mg PO HS [facility] Last Admin: 12/14/18 22:01 Dose: 10 mg Pramipexole Dihydrochloride (Mirapex -) 0.25 mg PO TID [facility] Last Admin: 12/15/18 06:43 Dose: 0.25 mg Topiramate (Topamax -) 100 mg PO DAILY [facility] Last Admin: 12/15/18 09:19 Dose: 100 mg Venlafaxine HCl (Effexor Xr -) 75 mg PO DAILY [facility] Last Admin: 12/15/18 09:19 Dose: 75 mg - Objective Vital Signs: Vital Signs Temperature 98.1 F 12/15/18 13:55 Pulse Rate 115 H 12/15/18 13:55 Respiratory Rate 24 H 12/15/18 13:55 Blood Pressure 111/68 12/15/18 13:55 O2 Sat by Pulse Oximetry (%) 94 L 12/15/18 09:00 Constitutional: Yes: Calm, Diaphoresis Eyes: Yes: WNL HENT: Yes: WNL Neck: Yes: Supple (trach) Cardiovascular: Yes: Pulse Irregular, S1, S2 Respiratory: Yes: Wheezes (few scattered wheezes) Gastrointestinal: Yes: Normal Bowel Sounds, Soft Extremities: Yes: WNL Edema: No Labs: CBC, BMP 12/15/18 08:20 12/15/18 08:20 INR, PTT INR 1.80 (0.83-1.09) H 12/15/18 08:20 Problem List - Problems (1) Sepsis Code(s): A41.9 - SEPSIS, UNSPECIFIED ORGANISM Qualifiers: Sepsis type: sepsis due to unspecified organism Qualified Code(s): A41.9 - Sepsis, unspecified organism (2) Abscess Code(s): L02.91 - CUTANEOUS ABSCESS, UNSPECIFIED (3) Acute and chronic respiratory failure with hypoxia Code(s): J96.21 - ACUTE AND CHRONIC RESPIRATORY FAILURE WITH HYPOXIA (4) Acute metabolic encephalopathy Code(s): G93.41 - METABOLIC ENCEPHALOPATHY (5) Acute on chronic respiratory failure with hypoxia and hypercapnia Code(s): J96.21 - ACUTE AND CHRONIC RESPIRATORY FAILURE WITH HYPOXIA; J96.22 - ACUTE AND CHRONIC RESPIRATORY FAILURE WITH HYPERCAPNIA (6) Anemia Code(s): D64.9 - ANEMIA, UNSPECIFIED (7) Diabetes Code(s): E11.9 - TYPE 2 DIABETES MELLITUS WITHOUT COMPLICATIONS (8) Tracheostomy in place Code(s): Z93.0 - TRACHEOSTOMY STATUS (9) Afib Code(s): I48.91 - UNSPECIFIED ATRIAL FIBRILLATION (10) Anxiety Code(s): F41.9 - ANXIETY DISORDER, UNSPECIFIED (11) GERD (gastroesophageal reflux disease) Code(s): K21.9 - GASTRO-ESOPHAGEAL REFLUX DISEASE WITHOUT ESOPHAGITIS (12) HTN (hypertension) Code(s): I10 - ESSENTIAL (PRIMARY) HYPERTENSION Qualifiers: (13) Paroxysmal atrial fibrillation Code(s): I48.0 - PAROXYSMAL ATRIAL FIBRILLATION Assessment/Plan Assessment/Plan ALTERED MENTAL STATUS IMPROVING FEVER CHRONIC HYPOXEMIC/HYPERCAPNEIC RESP FAILURE WITH TRACH ON COPD H/O GI BLEED NOW WITH DECREASED HGB 11.O TO 7.8GMS ANTICOAGULATION DUE TO AF NOW WITH SINUS TACH DECUBITUS DEPRESSION/BIPOLAR RENAL STAENTS UTERINE CA DM/HYPOTHYROID HTN SUPRA-THERAPEUTIC INR RESP STATUS STABLE NO RADIOGRAPHIC EVIDENCE TO SUGGEST PNEUMONIA DROPPED 4 GRAMS HGB FROM ADMISSION ON ANTICOAGULATION W H/O GI BLEED O2 ABX MONITOR LYTES,H+H MONITOR INR TRACHEAL SUCTIONING INHALED BRONCHODILATORS NO NEED FOR STEROIDS AT THIS TIME NORMAL TRANSFUSION THRESHOLD AVOID OVER SEDATION DR RUFFIN
--- NOTE | 2018-12-15 15:49 | CONS ---
DATE OF CONSULTATION: 12/14/2018 INFECTIOUS DISEASE CONSULTATION The patient is a 53-year-old female with a history of multiple recent hospital admissions complicated by bacteremia most recently from October 29 through November 10 at which time she was treated for polymicrobial bacteremia including MRSA requiring a PICC line and outpatient treatment. She now returns with report of altered mental status and fever. In the emergency room, temperature was 102.9. Patient was tachycardic. CAT scan of the head was negative for acute infarct or bleed. She was noted to have a markedly elevated white blood cell count of 19,000 and urinalysis with 1154 white cells. She offers no focal complaint. She is awake, and she is slightly tachypneic on room air. PAST MEDICAL HISTORY: Positive for chronic respiratory failure, status post tracheostomy, COPD, hypertension, hyperlipidemia, bipolar disorder, atrial fibrillation, insulin-dependent diabetes mellitus, hypothyroidism. ALLERGIES: OXYCODONE, ASPIRIN, FENTANYL, IBUPROFEN. MEDICATIONS: Include Tylenol, albuterol, Xanax, Dilaudid, Synthroid, Singulair, Protonix. SOCIAL HISTORY: She resides in a care home facility. She is a former smoker. SYSTEM REVIEW: Neurologic: No loss of consciousness, seizure activity, focal weakness. Cardiac: Negative chest pain or palpitations. Respiratory: As per HPI. Gastrointestinal: Negative vomiting or diarrhea. Genitourinary: Positive for urinary tract infection. LABORATORY DATA: White count on admission 19,000, presently 10.2, hematocrit 24.0, platelet count 216. Creatinine 1.5. Influenza swab negative. Urinalysis 1154 white cells. Blood and urine culture are pending. Chest x-ray negative for acute infiltrate. PHYSICAL EXAMINATION: General: She is chronically ill-appearing. She is slightly short of breath at rest. Vital Signs: Temperature 101.2, blood pressure 109/71, pulse 110 regular respirations 22 per minute. Eyes: Sclerae anicteric. Heart: Sounds S1, S2. Lungs: Rhonchi bilaterally. Abdomen: Obese, soft, nontender. Extremities: Negative for edema. IMPRESSION: 1. Urinary tract infection/possible sepsis secondary to urinary tract focus. 2. History of polymicrobial bacteremia/methicillin-resistant Staphylococcus aureus sepsis. 3. Chronic respiratory failure. PLAN: Pending sepsis workup. Continue empiric Zosyn plus STAT dose vancomycin. Further recommendations pending cultures. Will follow. Thank you for the kind referral. DENISHA ALMANZAR M.D. [facility]/[id number]
[2018-12-15] MEDS: MONTELUKAST NA 10 MG TABLET PO SCH (21:40)
[2018-12-15] MEDS ORDERED: CHOLESTYRAMINE/ASPARTAME 4 GM PACKET PO SCH (22:00)
--- NOTE | 2018-12-15 23:52 | PN ---
Progress Note, Physician History of Present Illness: Awake, alert in bed requesting Xanax Temps down BC (-) Urine c/s Morganella sp - Current Medication List Current Medications: Active Medications Acetaminophen (Tylenol -) 650 mg PO Q4H PRN PRN Reason: PAIN OR FEVER Last Admin: 12/15/18 06:43 Dose: 650 mg Albuterol/Ipratropium (Duoneb -) 1 amp NEB RQ4H [facility] Last Admin: 12/15/18 21:00 Dose: 1 amp Alprazolam (Xanax -) 0.25 mg PO Q8H PRN PRN Reason: ANXIETY Last Admin: 12/15/18 18:30 Dose: 0.25 mg Ascorbic Acid (Vitamin C -) 500 mg PO DAILY [facility] Last Admin: 12/15/18 09:18 Dose: 500 mg Cholestyramine Resin (Questran Light Packet -) 4 gm PO DAILY [facility] Ferrous Sulfate (Feosol -) 325 mg PO BID [facility] Last Admin: 12/15/18 21:40 Dose: 325 mg Guaifenesin (Robitussin Dm -) 10 ml PO Q4H PRN PRN Reason: COUGH Hydromorphone HCl (Dilaudid -) 2 mg PO Q4H PRN PRN Reason: PAIN LEVEL 7 - 10 Last Admin: 12/15/18 20:21 Dose: 2 mg Piperacillin Sod/Tazobactam (Sod 2.25 gm/ Dextrose) 50 mls @ 100 mls/hr IVPB Q8H-IV [facility]; Protocol Last Admin: 12/15/18 17:31 Dose: 100 mls/hr Pantoprazole Sodium 40 mg/ (Sodium Chloride) 100 mls @ 200 mls/hr IVPB DAILY [facility] Last Admin: 12/15/18 09:44 Dose: 200 mls/hr Sodium Chloride (1/2 Normal Saline) 1,000 mls @ 75 mls/hr IV ASDIR [facility] Last Admin: 12/15/18 12:30 Dose: 75 mls/hr Lactobacillus Acidophilus (Bacid -) 1 tab PO DAILY [facility] Last Admin: 12/15/18 10:18 Dose: 1 tab Levothyroxine Sodium (Synthroid -) 50 mcg PO DAILY@0700 [facility] Last Admin: 12/15/18 06:43 Dose: 50 mcg Loperamide HCl (Imodium -) 2 mg PO Q8H PRN PRN Reason: DIARRHEA Last Admin: 12/15/18 16:54 Dose: 2 mg Metoclopramide HCl (Reglan Injection -) 10 mg IVPUSH Q8H [facility] Last Admin: 12/15/18 21:40 Dose: 10 mg Montelukast Sodium (Singulair -) 10 mg PO HS [facility] Last Admin: 12/15/18 21:40 Dose: 10 mg Pramipexole Dihydrochloride (Mirapex -) 0.25 mg PO TID [facility] Last Admin: 12/15/18 21:40 Dose: 0.25 mg Topiramate (Topamax -) 100 mg PO DAILY [facility] Last Admin: 12/15/18 09:19 Dose: 100 mg Venlafaxine HCl (Effexor Xr -) 75 mg PO DAILY [facility] Last Admin: 12/15/18 09:19 Dose: 75 mg - Objective Vital Signs: Vital Signs Temperature 97.7 F 12/15/18 18:00 Pulse Rate 118 H 12/15/18 18:00 Respiratory Rate 22 H 12/15/18 23:02 Blood Pressure 116/74 12/15/18 18:00 O2 Sat by Pulse Oximetry (%) 94 L 12/15/18 23:02 Constitutional: Yes: No Distress Eyes: Yes: Conjunctiva Clear Cardiovascular: Yes: Regular Rate and Rhythm, S1, S2 Respiratory: Yes: Diminished Gastrointestinal: Yes: Normal Bowel Sounds, Soft Edema: No Labs: CBC, BMP 12/15/18 08:20 12/15/18 08:20 INR, PTT INR 1.80 (0.83-1.09) H 12/15/18 08:20 Assessment/Plan UTI/ possible sepsis secondary to UTI Continue zosyn
[2018-12-16] MEDS: ALBUTEROL SO4 2.5/IPRATROPIUM 0.5 INH SOL 3 ML VIAL.NEB. NEB SCH ×6 (00:07→19:55)
[2018-12-16] MEDS ORDERED: PIPERACILLIN/TAZOBACTAM 2.25 GM VIAL IVPB ONE (01:20)
[2018-12-16] MEDS ORDERED: DEXTROSE 5%-WATER - 50 ML IVPB ONE (01:20)
[2018-12-16] MEDS: HYDROmorphone HCL 2 MG TABLET PO PRN (01:24)
[2018-12-16] MEDS: PIPERACILLIN/TAZOB 2.25 GM 2.25 GM in DEXTROSE 5%-WATER - 50 ML IVPB SCH ×2 (02:17→13:19)
[2018-12-16] MEDS ORDERED: PT OWN MED DRAWER 7, Y5N ONE ×3 (03:54→21:24)
[2018-12-16] MEDS: PRAMIPEXOLE DIHYDROCHLORIDE 0.25 MG TABLET PO SCH ×2 (06:06→22:04)
[2018-12-16] MEDS: METOCLOPRAMIDE HCL INJECTION 10 MG/2 ML VIAL IVPUSH SCH ×3 (06:07→22:08)
[2018-12-16] MEDS: LEVOTHYROXINE NA 50 MCG TABLET (FP) PO SCH (06:14)
[2018-12-16 07:23] LABS: SERUM IRON SATURATION 52 % (15-55); TOTAL IRON BINDING CAPACITY 108 ug/dL (250-450); UIBC 52 ug/dL (131-425)
[2018-12-16 08:12] LABS: HEMATOCRIT 31.2 % (32.4-45.2); HEMOGLOBIN 10.4 GM/dL (10.7-15.3); MCHC 33.4 g/dl (32.0-36.0); MEAN CELL VOLUME 95.8 fl (80-96); MEAN PLT VOLUME 9.3 fl (7.5-11.1); PLATELET COUNT 196 K/MM3 (134-434); RBC 3.25 M/mm3 (3.60-5.2); RDW 21.5 % (11.6-15.6); WHITE BLOOD COUNT 12.1 K/mm3 (4.0-10.0)
[2018-12-16 08:28] LABS: ALBUMIN 1.8 g/dl (3.4-5.0); ALK PHOS 209 U/L (45-117); ANION GAP 12 MMOL/L (8-16); BILIRUBIN,TOTAL 1.5 mg/dL (0.2-1); BLOOD UREA NITROGEN 6 mg/dL (7-18); CALCIUM 7.1 mg/dL (8.5-10.1); CHLORIDE 107 mmol/L (98-107); CO2 24 mmol/L (21-32); CREATININE 1.1 mg/dL (0.55-1.3); GLUCOSE,RANDOM 67 mg/dL (74-106); MAGNESIUM 1.3 mg/dL (1.8-2.4); PHOSPHOROUS 2.4 mg/dL (2.5-4.9); POTASSIUM 3.6 mmol/L (3.5-5.1); SGOT/AST 34 U/L (15-37); SGPT/ALT 25 U/L (13-61); SODIUM 142 mmol/L (136-145); TOT PROT 5.6 g/dl (6.4-8.2)
--- NOTE | 2018-12-16 08:28 | PN ---
Progress Note (short form) - Note Progress Note: no further diarrhea, not candidate for colonoscopy at this time will schedule one medically cleared. Problem List - Problems (1) Anemia Code(s): D64.9 - ANEMIA, UNSPECIFIED (2) Diarrhea Code(s): R19.7 - DIARRHEA, UNSPECIFIED
--- NOTE | 2018-12-16 09:25 | PN ---
Progress Note (short form) - Note Progress Note: OOB to chair on Trach collar. Breathing feels OK. No acute events overnight. Intake & Output 12/13/18 12/14/18 12/15/18 12/16/18 23:59 23:59 23:59 23:59 Intake Total 550 3606 459 2205 Balance 550 0254 122 5969 Weight 127 lb 9.6 oz 125 lb 5 oz Last Vital Signs Temp Pulse Resp BP Pulse Ox 99.1 F 110 H 20 115/85 99 12/16/18 05:51 12/16/18 07:31 12/16/18 05:51 12/16/18 05:51 12/16/18 07:31 Active Medications Acetaminophen (Tylenol -) 650 mg PO Q4H PRN PRN Reason: PAIN OR FEVER Last Admin: 12/15/18 06:43 Dose: 650 mg Albuterol/Ipratropium (Duoneb -) 1 amp NEB RQ4H [facility] Last Admin: 12/16/18 07:31 Dose: 1 amp Alprazolam (Xanax -) 0.25 mg PO Q8H PRN PRN Reason: ANXIETY Last Admin: 12/15/18 18:30 Dose: 0.25 mg Ascorbic Acid (Vitamin C -) 500 mg PO DAILY [facility] Last Admin: 12/15/18 09:18 Dose: 500 mg Cholestyramine Resin (Questran Light Packet -) 4 gm PO DAILY [facility] Ferrous Sulfate (Feosol -) 325 mg PO BID [facility] Last Admin: 12/15/18 21:40 Dose: 325 mg Guaifenesin (Robitussin Dm -) 10 ml PO Q4H PRN PRN Reason: COUGH Hydromorphone HCl (Dilaudid -) 2 mg PO Q4H PRN PRN Reason: PAIN LEVEL 7 - 10 Last Admin: 12/16/18 01:24 Dose: 2 mg Piperacillin Sod/Tazobactam (Sod 2.25 gm/ Dextrose) 50 mls @ 100 mls/hr IVPB Q8H-IV [facility]; Protocol Last Admin: 12/16/18 02:17 Dose: 100 mls/hr Pantoprazole Sodium 40 mg/ (Sodium Chloride) 100 mls @ 200 mls/hr IVPB DAILY [facility] Last Admin: 12/15/18 09:44 Dose: 200 mls/hr Sodium Chloride (1/2 Normal Saline) 1,000 mls @ 75 mls/hr IV ASDIR [facility] Last Admin: 12/15/18 12:30 Dose: 75 mls/hr Lactobacillus Acidophilus (Bacid -) 1 tab PO DAILY [facility] Last Admin: 12/15/18 10:18 Dose: 1 tab Levothyroxine Sodium (Synthroid -) 50 mcg PO DAILY@0700 [facility] Last Admin: 12/16/18 06:14 Dose: 50 mcg Loperamide HCl (Imodium -) 2 mg PO Q8H PRN PRN Reason: DIARRHEA Last Admin: 12/15/18 16:54 Dose: 2 mg Magnesium Sulfate (Magnesium Sulfate) 2 gm IVPB ONCE ONE Stop: 12/16/18 09:21 Metoclopramide HCl (Reglan Injection -) 10 mg IVPUSH Q8H [facility] Last Admin: 12/16/18 06:07 Dose: 10 mg Montelukast Sodium (Singulair -) 10 mg PO HS [facility] Last Admin: 12/15/18 21:40 Dose: 10 mg Potassium Phos/Sodium Phos (Phos-Nak Packet -) 2 packet PO ONCE ONE Stop: 12/16/18 09:23 Pramipexole Dihydrochloride (Mirapex -) 0.25 mg PO TID [facility] Last Admin: 12/16/18 06:06 Dose: 0.25 mg Topiramate (Topamax -) 100 mg PO DAILY [facility] Last Admin: 12/15/18 09:19 Dose: 100 mg Venlafaxine HCl (Effexor Xr -) 75 mg PO DAILY [facility] Last Admin: 12/15/18 09:19 Dose: 75 mg Constitutional: Yes: NAD Eyes: Yes: WNL HENT: Yes: WNL Neck: Yes: Supple (trach) Cardiovascular: Yes: Pulse Irregular, S1, S2 Respiratory: Yes: Wheezes (few scattered wheezes) Gastrointestinal: Yes: Normal Bowel Sounds, Soft Extremities: Yes: WNL Edema: No Labs: Laboratory Results - last 24 hr 12/15/18 12/15/18 12/15/18 08:20 08:20 08:20 WBC 11.3 H RBC 3.08 L Hgb 9.7 L Hct 29.5 L D MCV 95.8 MCH 31.6 MCHC 33.0 RDW 23.3 H Plt Count 187 MPV 9.2 Absolute Neuts (auto) 8.2 H Neutrophils % 72.9 Lymphocytes % 18.2 D Monocytes % 6.4 Eosinophils % 1.8 Basophils % 0.7 Nucleated RBC % 0 Hypochromia 0 Platelet Estimate Normal Polychromasia 1+ Poikilocytosis 1+ Anisocytosis 2+ Microcytosis 2+ Macrocytosis 0 Stomatocytes 1+ Sodium 146 H Potassium 3.1 L Chloride 112 H Carbon Dioxide 24 Anion Gap 11 BUN 7 Creatinine 1.4 H Creat Clearance w eGFR 39.64 Random Glucose 69 L Calcium 7.1 L Phosphorus Magnesium Iron 56 TIBC 108 L Iron Saturation 52 Ferritin 185.2 Total Bilirubin 1.2 H AST 46 H ALT 27 Alkaline Phosphatase 206 H Total Protein 5.4 L Albumin 1.8 L Vitamin B12 2564 H Stool Occult Blood 12/15/18 12/16/18 12/16/18 16:00 06:45 06:45 WBC 12.1 H RBC 3.25 L Hgb 10.4 L Hct 31.2 L MCV 95.8 MCH 32.0 MCHC 33.4 RDW 21.5 H Plt Count 196 MPV 9.3 Absolute Neuts (auto) Neutrophils % Lymphocytes % Monocytes % Eosinophils % Basophils % Nucleated RBC % Hypochromia Platelet Estimate Polychromasia Poikilocytosis Anisocytosis Microcytosis Macrocytosis Stomatocytes Sodium 142 Potassium 3.6 Chloride 107 Carbon Dioxide 24 Anion Gap 12 BUN 6 L Creatinine 1.1 Creat Clearance w eGFR 52.36 Random Glucose 67 L Calcium 7.1 L Phosphorus 2.4 L Magnesium 1.3 L Iron TIBC Iron Saturation Ferritin Total Bilirubin 1.5 H AST 34 ALT 25 Alkaline Phosphatase 209 H Total Protein 5.6 L Albumin 1.8 L Vitamin B12 Stool Occult Blood Positive Problem List - Problems (1) Sepsis Code(s): A41.9 - SEPSIS, UNSPECIFIED ORGANISM Qualifiers: Sepsis type: sepsis due to unspecified organism Qualified Code(s): A41.9 - Sepsis, unspecified organism (2) Abscess Code(s): L02.91 - CUTANEOUS ABSCESS, UNSPECIFIED (3) Acute and chronic respiratory failure with hypoxia Code(s): J96.21 - ACUTE AND CHRONIC RESPIRATORY FAILURE WITH HYPOXIA (4) Acute metabolic encephalopathy Code(s): G93.41 - METABOLIC ENCEPHALOPATHY (5) Acute on chronic respiratory failure with hypoxia and hypercapnia Code(s): J96.21 - ACUTE AND CHRONIC RESPIRATORY FAILURE WITH HYPOXIA; J96.22 - ACUTE AND CHRONIC RESPIRATORY FAILURE WITH HYPERCAPNIA (6) Anemia Code(s): D64.9 - ANEMIA, UNSPECIFIED (7) Diabetes Code(s): E11.9 - TYPE 2 DIABETES MELLITUS WITHOUT COMPLICATIONS (8) Tracheostomy in place Code(s): Z93.0 - TRACHEOSTOMY STATUS (9) Afib Code(s): I48.91 - UNSPECIFIED ATRIAL FIBRILLATION (10) Anxiety Code(s): F41.9 - ANXIETY DISORDER, UNSPECIFIED (11) GERD (gastroesophageal reflux disease) Code(s): K21.9 - GASTRO-ESOPHAGEAL REFLUX DISEASE WITHOUT ESOPHAGITIS (12) HTN (hypertension) Code(s): I10 - ESSENTIAL (PRIMARY) HYPERTENSION Qualifiers: (13) Paroxysmal atrial fibrillation Code(s): I48.0 - PAROXYSMAL ATRIAL FIBRILLATION Assessment/Plan Assessment/Plan ALTERED MENTAL STATUS IMPROVING FEVER CHRONIC HYPOXEMIC/HYPERCAPNEIC RESP FAILURE WITH TRACH ON COLLAR COPD H/O GI BLEED NOW WITH DECREASED HGB 11.O TO 7.8GMS ANTICOAGULATION DUE TO AF NOW WITH SINUS TACH DECUBITUS DEPRESSION/BIPOLAR RENAL STAENTS UTERINE CA DM/HYPOTHYROID HTN SUPRA-THERAPEUTIC INR RESP STATUS STABLE NO RADIOGRAPHIC EVIDENCE TO SUGGEST PNEUMONIA DROPPED 4 GRAMS HGB FROM ADMISSION ON ANTICOAGULATION W H/O GI BLEED TRACH COLLAR NEEDED ABX MONITOR LYTES,H+H MONITOR INR TRACHEAL SUCTIONING INHALED BRONCHODILATORS NO NEED FOR STEROIDS AT THIS TIME NORMAL TRANSFUSION THRESHOLD DR STRINGER
--- NOTE | 2018-12-16 09:27 | PN ---
Physical Exam: SUBJECTIVE: Patient seen and examined. Feels much improved, sitting OOB in chair. No flank pain or dysuria. No fevers overnight. Thinks she is going back to [place] today. OBJECTIVE: Vital Signs Period Temp Pulse Resp BP Sys/Dan Pulse Ox Last 24 Hr 97.7 F-99.8 F 104-118 - 111-132/68-86 94-99 Vital Signs Temp 99.1 F 12/16/18 05:51 Pulse 110 H 12/16/18 07:31 Resp 20 12/16/18 05:51 BP 115/85 12/16/18 05:51 Pulse Ox 99 12/16/18 07:31 Intake & Output 12/15/18 12/15/18 12/16/18 11:59 23:59 11:59 Intake Total 500 1000 Balance 500 1000 Weight 56.841 kg Intake: IV 900 1/2 Normal Saline 1,000 900 ml @ 75 mls/hr IV ASDIR EMMY Rx#:[id number] IVPB 100 Oral 500 Other: Voiding Method Incontinent Incontinent # Unmeasured Voids Void 1 8 7 Bowel Movement Yes: LARGE SOFT BOWEL M. Yes # Bowel Movements 1 3 Weight Measurement Method Built in [facility] GENERAL: The patient is awake, alert, and fully oriented, in no acute distress. ENT: Ears normal, nares patent, oropharynx clear without exudates, moist mucous membranes. Trach collar with nebulizer NECK: Trachea collar in place. Supple neck. LUNGS: Breath sounds equal, clear to auscultation bilaterally, no wheezes, no crackles HEART: Regular rate and rhythm, S1, S2 ABDOMEN: Soft, nontender, nondistended, normoactive bowel sounds EXTREMITIES: 2+ pulses, warm, well-perfused, no edema. NEUROLOGICAL: Cranial nerves II through XII grossly intact. Normal speech, b/l LE weakness. gait not observed. Laboratory Results - last 24 hr 12/15/18 12/15/18 12/15/18 08:20 08:20 08:20 WBC 11.3 H RBC 3.08 L Hgb 9.7 L Hct 29.5 L D MCV 95.8 MCH 31.6 MCHC 33.0 RDW 23.3 H Plt Count 187 MPV 9.2 Absolute Neuts (auto) 8.2 H Neutrophils % 72.9 Lymphocytes % 18.2 D Monocytes % 6.4 Eosinophils % 1.8 Basophils % 0.7 Nucleated RBC % 0 Hypochromia 0 Platelet Estimate Normal Polychromasia 1+ Poikilocytosis 1+ Anisocytosis 2+ Microcytosis 2+ Macrocytosis 0 Stomatocytes 1+ Sodium 146 H Potassium 3.1 L Chloride 112 H Carbon Dioxide 24 Anion Gap 11 BUN 7 Creatinine 1.4 H Creat Clearance w eGFR 39.64 Random Glucose 69 L Calcium 7.1 L Phosphorus Magnesium Iron 56 TIBC 108 L Iron Saturation 52 Ferritin 185.2 Total Bilirubin 1.2 H AST 46 H ALT 27 Alkaline Phosphatase 206 H Total Protein 5.4 L Albumin 1.8 L Vitamin B12 2564 H Stool Occult Blood 12/15/18 12/16/18 12/16/18 16:00 06:45 06:45 WBC 12.1 H RBC 3.25 L Hgb 10.4 L Hct 31.2 L MCV 95.8 MCH 32.0 MCHC 33.4 RDW 21.5 H Plt Count 196 MPV 9.3 Absolute Neuts (auto) Neutrophils % Lymphocytes % Monocytes % Eosinophils % Basophils % Nucleated RBC % Hypochromia Platelet Estimate Polychromasia Poikilocytosis Anisocytosis Microcytosis Macrocytosis Stomatocytes Sodium 142 Potassium 3.6 Chloride 107 Carbon Dioxide 24 Anion Gap 12 BUN 6 L Creatinine 1.1 Creat Clearance w eGFR 52.36 Random Glucose 67 L Calcium 7.1 L Phosphorus 2.4 L Magnesium 1.3 L Iron TIBC Iron Saturation Ferritin Total Bilirubin 1.5 H AST 34 ALT 25 Alkaline Phosphatase 209 H Total Protein 5.6 L Albumin 1.8 L Vitamin B12 Stool Occult Blood Positive Active Medications Generic Name Dose Route Start Last Admin Trade Name Freq PRN Reason Stop Dose Admin Acetaminophen 650 mg 12/14/18 12:44 12/15/18 06:43 Tylenol - PO 650 mg Q4H PRN Administration PAIN OR FEVER Albuterol/Ipratropium 1 amp 12/14/18 13:00 12/16/18 07:31 Duoneb - NEB 1 amp RQ4H EMMY Administration Alprazolam 0.25 mg 12/13/18 11:24 12/15/18 18:30 Xanax - PO 0.25 mg Q8H PRN Administration ANXIETY Ascorbic Acid 500 mg 12/14/18 10:00 12/15/18 09:18 Vitamin C - PO 500 mg DAILY [facility]MM[facility] Administration Cholestyramine Resin 4 gm 12/16/18 10:00 Questran Light Packet - PO DAILY EMM[facility] Ferrous Sulfate 325 mg 12/13/18 22:00 12/15/18 21:40 Feosol - PO 325 mg BID [facility] Administration Guaifenesin 10 ml 12/14/18 12:46 Robitussin Dm - PO Q4H PRN COUGH Hydromorphone HCl 2 mg 12/13/18 11:22 12/16/18 01:24 Dilaudid - PO 2 mg Q4H PRN Administration PAIN LEVEL 7 - 10 Piperacillin Sod/Tazobactam 50 mls @ 100 mls/hr 12/13/18 15:45 12/16/18 02:17 Sod 2.25 gm/ Dextrose IVPB 100 mls/hr Q8H-IV [facility]MMY Administration Protocol Pantoprazole Sodium 40 mg/ 100 mls @ 200 mls/hr 12/15/18 10:00 12/15/18 09:44 Sodium Chloride IVPB 200 mls/hr DAILY [facility]MMY Administration Sodium Chloride 1,000 mls @ 75 mls/hr 12/15/18 11:30 12/15/18 12:30 1/2 Normal Saline IV 75 mls/hr ASDIR [facility]MMY Administration Lactobacillus Acidophilus 1 tab 12/15/18 10:00 12/15/18 10:18 Bacid - PO 1 tab DAILY [facility] Administration Levothyroxine Sodium 50 mcg 12/14/18 07:00 12/16/18 06:14 Synthroid - PO 50 mcg DAILY@0700 [facility] Administration Loperamide HCl 2 mg 12/15/18 15:07 12/15/18 16:54 Imodium - PO 2 mg Q8H PRN Administration DIARRHEA Magnesium Sulfate 2 gm 12/16/18 09:20 Magnesium Sulfate IVPB 12/16/18 09:21 ONCE ONE Metoclopramide HCl 10 mg 12/14/18 13:15 12/16/18 06:07 Reglan Injection - IVPUSH 10 mg Q8H EMMY Administration Montelukast Sodium 10 mg 12/13/18 22:00 12/15/18 21:40 Singulair - PO 10 mg HS EMMY Administration Potassium Phos/Sodium Phos 2 packet 12/16/18 09:22 Phos-Nak Packet - PO 12/16/18 09:23 ONCE ONE Pramipexole Dihydrochloride 0.25 mg 12/13/18 14:00 12/16/18 06:06 Mirapex - PO 0.25 mg TID [facility]MM[facility] Administration Topiramate 100 mg 12/14/18 10:00 12/15/18 09:19 Topamax - PO 100 mg DAILY [facility] Administration Venlafaxine HCl 75 mg 12/14/18 10:00 12/15/18 09:19 Effexor Xr - PO 75 mg DAILY [facility] Administration ASSESSMENT/PLAN: Pt is a 53 y/o F with PMHx of: Chronic Respiratory Failure s/p Tracheostomy, Asthma, COPD, O2 Dep, HTN, A-fib (on Eliquis), HLD, Hypothyroidism, DM, GI Bleed , Uterine Ca, Renal Stents, Bipolar, Depression, Chronic Pain, Decubitus Ulcer brought in from [facility] for AMS, Fever 102.0 and found to have sepsis secondary to UTI. Chronic Respiratory Failure s/p Tracheostomy, Asthma, COPD, O2 Dep, HTN, A-fib (on Eliquis), HLD, Hypothyroidism, DM, GI Bleed, Uterine Ca, Renal Stents, Bipolar, Depression, Chronic Pain, Decubitus Ulcer sepsis secondary to UTI. LEEANNA hypokalemia Hypernatremia Hypophosphatemia Hypomagnesemia Plan: Likely prerenal in setting of sepsis Creatinine improving IVF 1/2NS @75ml/hr Urine lytes, cr- not done Renal US- not done Mg Sulphate 2g Phosphate pcks x2 Hypokalemia resolved BMP Avoid nephrotoxic drugs Will Follow Visit type - Emergency Visit Emergency Visit: Yes ED Registration Date: 12/12/18 Care time: The patient presented to the Emergency Department on the above date and was hospitalized for further evaluation of their emergent condition. - New Patient This patient is new to me today: No - Critical Care Critical Care patient: No - Discharge Referral Referred to [facility] Med [facility] No
[2018-12-16] MEDS ORDERED: NAPH,MB-DB/K PH,MBDB POWDER PACKET PO ONE (09:45)
[2018-12-16] MEDS ORDERED: MAGNESIUM 2GM/50ML STERILE WATER IVPB IVPB ONE (10:00)
--- NOTE | 2018-12-16 10:42 | PN ---
Progress Note (short form) - Note Progress Note: Patient uncooperative this morning and refuse physical examination and refuse to answer questions regarding ROS. When asked what is the matter patient said "I 'm not happy" and refused to elaborate. Patient removed jean pierre and is refusing re-insertion. Spoke with Dr. Gomez from [place] in regards to PO medication options. Will attempt to evaluate resident tomorrow. H/H currently stable, patient to have colonoscopy on 12/21/18 or if discharged sooner will have GI follow up and colonoscopy as outpatient. Labs and previous notes/events reviewed. <Nan Coulter - Last Filed: 12/16/18 18:25> - Note Progress Note: PATIENT SEEN AND EXAMINED AND I AGREE WITH THE ABOVE NOTE <Kaz Goel - Last Filed: 12/19/18 09:14> Problem List - Problems (1) LEEANNA (acute kidney injury) Code(s): N17.9 - ACUTE KIDNEY FAILURE, UNSPECIFIED (2) Diarrhea Code(s): R19.7 - DIARRHEA, UNSPECIFIED (3) Sepsis Code(s): A41.9 - SEPSIS, UNSPECIFIED ORGANISM Qualifiers: Sepsis type: sepsis due to unspecified organism Qualified Code(s): A41.9 - Sepsis, unspecified organism (4) UTI (urinary tract infection) Code(s): N39.0 - URINARY TRACT INFECTION, SITE NOT SPECIFIED Qualifiers: Urinary tract infection type: acute cystitis Hematuria presence: without hematuria Qualified Code(s): N30.00 - Acute cystitis without hematuria (5) Acute and chronic respiratory failure with hypoxia Code(s): J96.21 - ACUTE AND CHRONIC RESPIRATORY FAILURE WITH HYPOXIA <Nan Coulter - Last Filed: 12/16/18 18:25>
[2018-12-16] MEDS ORDERED: SODIUM CHLORIDE 100 ML IVPB ONE (10:58)
[2018-12-16] MEDS ORDERED: PANTOPRAZOLE SODIUM 40 MG VIAL ONE (10:58)
[2018-12-16] MEDS: ASCORBIC ACID 500 MG TABLET (FP) PO SCH (11:06)
[2018-12-16] MEDS: FERROUS SO4 325 MG TABLET (FP) PO SCH ×2 (11:06→22:04)
[2018-12-16] MEDS: LACTOBACILLUS ACIDOPHILUS 1 TABLET PO SCH (11:06)
[2018-12-16] MEDS: ALPRAZolam 0.25 MG TABLET PO PRN ×2 (11:06→20:42)
[2018-12-16] MEDS: CHOLESTYRAMINE/ASPARTAME 4 GM PACKET PO SCH (11:07)
[2018-12-16] MEDS ORDERED: MAGNESIUM OXIDE 400 MG TABLET (FP) PO ONE (12:00)
[2018-12-16] MEDS: TOPIRAMATE 100 MG TABLET PO SCH (13:19)
[2018-12-16] MEDS: VENLAFAXINE HCL 75 MG E.R. CAPSULES (FP) PO SCH (13:19)
[2018-12-16] MEDS: PANTOPRAZOLE SODIUM 40 MG in SODIUM CHLORIDE 100 ML IVPB SCH (13:19)
[2018-12-16] MEDS: SODIUM CHLORIDE 0.45% 1,000 ML IV SCH (13:20)
--- NOTE | 2018-12-16 14:02 | PN ---
Progress Note, Physician History of Present Illness: Awake, alert. Sitting on bed Temps down. Afebrile BC (-) Urine c/s Morganella sp - Current Medication List Current Medications: Active Medications Acetaminophen (Tylenol -) 650 mg PO Q4H PRN PRN Reason: PAIN OR FEVER Last Admin: 12/15/18 06:43 Dose: 650 mg Albuterol/Ipratropium (Duoneb -) 1 amp NEB RQ4H [facility] Last Admin: 12/16/18 11:22 Dose: 1 amp Alprazolam (Xanax -) 0.25 mg PO Q8H PRN PRN Reason: ANXIETY Last Admin: 12/16/18 11:06 Dose: 0.25 mg Ascorbic Acid (Vitamin C -) 500 mg PO DAILY [facility] Last Admin: 12/16/18 11:06 Dose: 500 mg Cholestyramine Resin (Questran Light Packet -) 4 gm PO DAILY [facility] Last Admin: 12/16/18 11:07 Dose: 4 gm Ferrous Sulfate (Feosol -) 325 mg PO BID [facility] Last Admin: 12/16/18 11:06 Dose: 325 mg Guaifenesin (Robitussin Dm -) 10 ml PO Q4H PRN PRN Reason: COUGH Hydromorphone HCl (Dilaudid -) 2 mg PO Q4H PRN PRN Reason: PAIN LEVEL 7 - 10 Last Admin: 12/16/18 01:24 Dose: 2 mg Piperacillin Sod/Tazobactam (Sod 2.25 gm/ Dextrose) 50 mls @ 100 mls/hr IVPB Q8H-IV EMMY; Protocol Last Admin: 12/16/18 13:19 Dose: Not Given Pantoprazole Sodium 40 mg/ (Sodium Chloride) 100 mls @ 200 mls/hr IVPB DAILY [facility] Last Admin: 12/16/18 13:19 Dose: Not Given Sodium Chloride (1/2 Normal Saline) 1,000 mls @ 75 mls/hr IV ASDIR [facility] Last Admin: 12/16/18 13:20 Dose: Not Given Lactobacillus Acidophilus (Bacid -) 1 tab PO DAILY [facility] Last Admin: 12/16/18 11:06 Dose: 1 tab Levothyroxine Sodium (Synthroid -) 50 mcg PO DAILY@0700 [facility] Last Admin: 12/16/18 06:14 Dose: 50 mcg Loperamide HCl (Imodium -) 2 mg PO Q8H PRN PRN Reason: DIARRHEA Last Admin: 12/15/18 16:54 Dose: 2 mg Metoclopramide HCl (Reglan Injection -) 10 mg IVPUSH Q8H [facility] Last Admin: 12/16/18 06:07 Dose: 10 mg Montelukast Sodium (Singulair -) 10 mg PO HS [facility] Last Admin: 12/15/18 21:40 Dose: 10 mg Pramipexole Dihydrochloride (Mirapex -) 0.25 mg PO TID [facility] Last Admin: 12/16/18 06:06 Dose: 0.25 mg Topiramate (Topamax -) 100 mg PO DAILY [facility] Last Admin: 12/16/18 13:19 Dose: 100 mg Venlafaxine HCl (Effexor Xr -) 75 mg PO DAILY [facility] Last Admin: 12/16/18 13:19 Dose: 75 mg - Objective Vital Signs: Vital Signs Temperature 98.7 F 12/16/18 13:42 Pulse Rate 109 H 12/16/18 13:42 Respiratory Rate 22 H 12/16/18 13:42 Blood Pressure 113/80 12/16/18 11:59 O2 Sat by Pulse Oximetry (%) 97 12/16/18 11:44 Constitutional: Yes: No Distress Eyes: Yes: Conjunctiva Clear Cardiovascular: Yes: Regular Rate and Rhythm, S1, S2 Respiratory: Yes: Rhonchi Gastrointestinal: Yes: Normal Bowel Sounds, Soft. No: Other Edema: No Labs: CBC, BMP 12/16/18 06:45 12/16/18 06:45 INR, PTT INR 1.80 (0.83-1.09) H 12/15/18 08:20 Assessment/Plan UTI Morganella S/P course of zosyn D/C antibiotics, observe off
--- NOTE | 2018-12-16 16:29 | PN ---
Teaching Attending Note Name of Resident: Liz Faria ATTENDING PHYSICIAN STATEMENT I saw and evaluated the patient. I reviewed the resident's note and discussed the case with the resident. I agree with the resident's findings and plan as documented. Renal Pt seen and examined at bedside. She is awake and alert. She says that she feels much better. Current Medications Generic Name Dose Route Start Last Admin Trade Name Freq PRN Reason Stop Dose Admin Acetaminophen 650 mg 12/14/18 12:44 12/15/18 06:43 Tylenol - PO 650 mg Q4H PRN Administration PAIN OR FEVER Albuterol/Ipratropium 1 amp 12/14/18 13:00 12/16/18 11:22 Duoneb - NEB 1 amp RQ4H [facility] Administration Alprazolam 0.25 mg 12/13/18 11:24 12/16/18 11:06 Xanax - PO 0.25 mg Q8H PRN Administration ANXIETY Ascorbic Acid 500 mg 12/14/18 10:00 12/16/18 11:06 Vitamin C - PO 500 mg DAILY [facility] Administration Cholestyramine Resin 4 gm 12/16/18 10:00 12/16/18 11:07 Questran Light Packet - PO 4 gm DAILY [facility] Administration Ferrous Sulfate 325 mg 12/13/18 22:00 12/16/18 11:06 Feosol - PO 325 mg BID [facility] Administration Guaifenesin 10 ml 12/14/18 12:46 Robitussin Dm - PO Q4H PRN COUGH Hydromorphone HCl 2 mg 12/13/18 11:22 12/16/18 01:24 Dilaudid - PO 2 mg Q4H PRN Administration PAIN LEVEL 7 - 10 Pantoprazole Sodium 40 mg/ 100 mls @ 200 mls/hr 12/15/18 10:00 12/16/18 13:19 Sodium Chloride IVPB Not Given DAILY EMMY Sodium Chloride 1,000 mls @ 75 mls/hr 12/15/18 11:30 12/16/18 13:20 1/2 Normal Saline IV Not Given ASDIR EMMY Lactobacillus Acidophilus 1 tab 12/15/18 10:00 12/16/18 11:06 Bacid - PO 1 tab DAILY [facility] Administration Levothyroxine Sodium 50 mcg 12/14/18 07:00 12/16/18 06:14 Synthroid - PO 50 mcg DAILY@0700 [facility] Administration Loperamide HCl 2 mg 12/15/18 15:07 12/15/18 16:54 Imodium - PO 2 mg Q8H PRN Administration DIARRHEA Metoclopramide HCl 10 mg 12/14/18 13:15 12/16/18 06:07 Reglan Injection - IVPUSH 10 mg Q8H [facility] Administration Montelukast Sodium 10 mg 12/13/18 22:00 12/15/18 21:40 Singulair - PO 10 mg HS [facility] Administration Pramipexole Dihydrochloride 0.25 mg 12/13/18 14:00 12/16/18 06:06 Mirapex - PO 0.25 mg TID [facility] Administration Topiramate 100 mg 12/14/18 10:00 12/16/18 13:19 Topamax - PO 100 mg DAILY [facility] Administration Venlafaxine HCl 75 mg 12/14/18 10:00 12/16/18 13:19 Effexor Xr - PO 75 mg DAILY [facility] Administration Laboratory Tests 12/16/18 06:45 Sodium 142 Potassium 3.6 Creatinine 1.1 cardio s1s2 pulm trache GI soft ext neg edema skin tatoo Impression 1. monika 2. hypokalemia 3. resp failure 4. asthma 5. copd 6. htn 7. a-fib Plan - renal function is improved - decrease rate of fluids - replace lytes - follow ultrasound Dr Olmedo
[2018-12-16] MEDS ORDERED: SODIUM CHLORIDE 0.45% 1,000 ML IV SCH (18:49)
[2018-12-16] MEDS: ACETAMINOPHEN 325 MG TABLET (FP) PO PRN (20:42)
[2018-12-16] MEDS: MONTELUKAST NA 10 MG TABLET PO SCH (22:04)
[2018-12-17] MEDS: ALBUTEROL SO4 2.5/IPRATROPIUM 0.5 INH SOL 3 ML VIAL.NEB. NEB SCH ×6 (00:20→20:56)
[2018-12-17] MEDS: HYDROmorphone HCL 2 MG TABLET PO PRN (03:00)
[2018-12-17] MEDS ORDERED: PT OWN MED DRAWER 7, Y5N ONE ×4 (06:19→21:32)
[2018-12-17] MEDS: METOCLOPRAMIDE HCL INJECTION 10 MG/2 ML VIAL IVPUSH SCH ×3 (06:54→22:10)
[2018-12-17] MEDS: LEVOTHYROXINE NA 50 MCG TABLET (FP) PO SCH (06:54)
[2018-12-17] MEDS: PRAMIPEXOLE DIHYDROCHLORIDE 0.25 MG TABLET PO SCH ×3 (06:55→22:11)
[2018-12-17 08:04] LABS: ALBUMIN 1.9 g/dl (3.4-5.0); ALK PHOS 220 U/L (45-117); ANION GAP 17 MMOL/L (8-16); BILIRUBIN,TOTAL 1.8 mg/dL (0.2-1); BLOOD UREA NITROGEN 7 mg/dL (7-18); CALCIUM 7.4 mg/dL (8.5-10.1); CHLORIDE 102 mmol/L (98-107); CO2 18 mmol/L (21-32); CREATININE 0.9 mg/dL (0.55-1.3); GLUCOSE,RANDOM 71 mg/dL (74-106); MAGNESIUM 1.5 mg/dL (1.8-2.4); PHOSPHOROUS 2.9 mg/dL (2.5-4.9); POTASSIUM 3.4 mmol/L (3.5-5.1); SGOT/AST 37 U/L (15-37); SGPT/ALT 26 U/L (13-61); SODIUM 136 mmol/L (136-145)
[2018-12-17] MEDS ORDERED: PANTOPRAZOLE SODIUM 40 MG VIAL ONE (09:44)
[2018-12-17] MEDS ORDERED: SODIUM CHLORIDE 100 ML IVPB ONE (09:44)
[2018-12-17] MEDS: FERROUS SO4 325 MG TABLET (FP) PO SCH ×2 (09:59→22:11)
[2018-12-17] MEDS: VENLAFAXINE HCL 75 MG E.R. CAPSULES (FP) PO SCH (10:00)
[2018-12-17] MEDS: TOPIRAMATE 100 MG TABLET PO SCH (10:00)
[2018-12-17] MEDS: LACTOBACILLUS ACIDOPHILUS 1 TABLET PO SCH (10:00)
[2018-12-17] MEDS: ALPRAZolam 0.25 MG TABLET PO PRN (10:00)
[2018-12-17] MEDS: PANTOPRAZOLE SODIUM 40 MG in SODIUM CHLORIDE 100 ML IVPB SCH (10:01)
[2018-12-17] MEDS: ASCORBIC ACID 500 MG TABLET (FP) PO SCH (10:01)
[2018-12-17] MEDS: CHOLESTYRAMINE/ASPARTAME 4 GM PACKET PO SCH (10:01)
[2018-12-17] MEDS ORDERED: MAGNESIUM SULF 50% (8.12 MEQ/2 ML-1 GM VIAL) IVPB ONE (10:15)
[2018-12-17] MEDS ORDERED: POTASSIUM CHLORIDE TABS 20 MEQ TABLET.ER (FP) PO ONE (10:15)
[2018-12-17] MEDS ORDERED: MAGNESIUM OXIDE 400 MG TABLET (FP) PO ONE (11:21)
--- NOTE | 2018-12-17 11:52 | PN ---
Physical Exam: SUBJECTIVE: Patient seen and examined. Pt improved this am. Has no iv access , per nurse, Pt has been pulling out access. OBJECTIVE: Vital Signs Period Temp Pulse Resp BP Sys/Dan Pulse Ox Last 24 Hr 98.7 F-100.9 F 109-130 113-134/50-101 95-97 Vital Signs Temp 98.7 F 12/17/18 06:00 Pulse 113 H 12/17/18 11:19 Resp 20 12/17/18 06:00 BP 128/50 L 12/17/18 06:00 Pulse Ox 95 12/17/18 11:19 Intake & Output 12/16/18 12/16/18 12/17/18 11:59 23:59 11:59 Intake Total 1000 0 Balance 1000 0 Weight 56.841 kg Intake: IV 900 1/2 Normal Saline 1,000 900 ml @ 75 mls/hr IV ASDIR EMMY Rx#:[id number] IVPB 100 Oral 0 Other: Voiding Method Incontinent Incontinent Incontinent # Unmeasured Voids Void 7 3 2 Bowel Movement Yes # Bowel Movements 1 Weight Measurement Method Built in [facility] Built in [facility] GENERAL: The patient is awake, alert, and fully oriented, in no acute distress. ENT: moist mucous membranes. NECK: supple. LUNGS: Breath sounds equal, clear to auscultation bilaterally, no wheezes, no crackles HEART: Regular rate and rhythm, S1, S2 ABDOMEN: Soft, nontender, nondistended, normoactive bowel sounds EXTREMITIES: 2+ pulses, warm, well-perfused, no edema. NEUROLOGICAL: Cranial nerves II through XII grossly intact. Normal speech, gait not observed. CBC, BMP 12/16/18 06:45 12/17/18 06:00 Laboratory Results - last 24 hr 12/13/18 12/15/18 12/15/18 14:40 08:20 09:39 Hct 31.2 L Sodium Potassium Chloride Carbon Dioxide Anion Gap BUN Creatinine Creat Clearance w eGFR Random Glucose Calcium Phosphorus Magnesium Total Bilirubin AST ALT Alkaline Phosphatase Total Protein Albumin Folate 1681 Folate Hemolysate 524.6 Stool O & P Wet [place] Permanent Slide Final report Blood Type A POSITIVE Antibody Screen Negative Crossmatch See Detail 12/17/18 06:00 Hct Sodium 136 Potassium 3.4 L Chloride 102 Carbon Dioxide 18 L Anion Gap 17 H BUN 7 Creatinine 0.9 Creat Clearance w eGFR > 60 Random Glucose 71 L Calcium 7.4 L Phosphorus 2.9 Magnesium 1.5 L Total Bilirubin 1.8 H AST 37 ALT 26 Alkaline Phosphatase 220 H Total Protein 6.0 L Albumin 1.9 L Folate Folate Hemolysate Stool O & P Wet [place] Permanent Slide Blood Type Antibody Screen Crossmatch Active Medications Generic Name Dose Route Start Last Admin Trade Name Freq PRN Reason Stop Dose Admin Acetaminophen 650 mg 12/14/18 12:44 12/16/18 20:42 Tylenol - PO 650 mg Q4H PRN Administration PAIN OR FEVER Albuterol/Ipratropium 1 amp 12/14/18 13:00 12/17/18 11:19 Duoneb - NEB 1 amp RQ4H EMMY Administration Alprazolam 0.25 mg 12/13/18 11:24 12/17/18 10:00 Xanax - PO 0.25 mg Q8H PRN Administration ANXIETY Ascorbic Acid 500 mg 12/14/18 10:00 12/17/18 10:01 Vitamin C - PO 500 mg DAILY EMMY Administration Cholestyramine Resin 4 gm 12/16/18 10:00 12/17/18 10:01 Questran Light Packet - PO 4 gm DAILY EMMY Administration Ferrous Sulfate 325 mg 12/13/18 22:00 12/17/18 09:59 Feosol - PO 325 mg BID EMMY Administration Guaifenesin 10 ml 12/14/18 12:46 Robitussin Dm - PO Q4H PRN COUGH Hydromorphone HCl 2 mg 12/13/18 11:22 12/17/18 03:00 Dilaudid - PO 2 mg Q4H PRN Administration PAIN LEVEL 7 - 10 Pantoprazole Sodium 40 mg/ 100 mls @ 200 mls/hr 12/15/18 10:00 12/17/18 10:01 Sodium Chloride IVPB Not Given DAILY EMMY Lactobacillus Acidophilus 1 tab 12/15/18 10:00 12/17/18 10:00 Bacid - PO 1 tab DAILY EMMY Administration Levothyroxine Sodium 50 mcg 12/14/18 07:00 12/17/18 06:54 Synthroid - PO 50 mcg DAILY@0700 EMMY Administration Loperamide HCl 2 mg 12/15/18 15:07 12/15/18 16:54 Imodium - PO 2 mg Q8H PRN Administration DIARRHEA Metoclopramide HCl 10 mg 12/14/18 13:15 12/17/18 06:56 Reglan Injection - IVPUSH Not Given Q8H EMMY Montelukast Sodium 10 mg 12/13/18 22:00 12/16/18 22:04 Singulair - PO 10 mg HS EMMY Administration Pramipexole Dihydrochloride 0.25 mg 12/13/18 14:00 12/17/18 06:55 Mirapex - PO Not Given TID EMMY Topiramate 100 mg 12/14/18 10:00 12/16/18 13:19 Topamax - PO 100 mg DAILY EMMY Administration Venlafaxine HCl 75 mg 12/14/18 10:00 12/17/18 10:00 Effexor Xr - PO 75 mg DAILY EMMY Administration ASSESSMENT/PLAN: Pt is a 53 y/o F with PMHx of: Chronic Respiratory Failure s/p Tracheostomy, Asthma, COPD, O2 Dep, HTN, A-fib (on Eliquis), HLD, Hypothyroidism, DM, GI Bleed , Uterine Ca, Renal Stents, Bipolar, Depression, Chronic Pain, Decubitus Ulcer brought in from [facility] for AMS, Fever 102.0 and found to have sepsis secondary to UTI. Chronic Respiratory Failure s/p Tracheostomy, Asthma, COPD, O2 Dep, HTN, A-fib (on Eliquis), HLD, Hypothyroidism, DM, GI Bleed, Uterine Ca, Renal Stents, Bipolar, Depression, Chronic Pain, Decubitus Ulcer sepsis secondary to UTI. LEEANNA hypokalemia Hypernatremia Hypophosphatemia Hypomagnesemia Plan: Likely prerenal in setting of sepsis Creatinine at baseline Stop IVF 1/2NS @75ml/hr Mg oxide PO Kcl PO Hypokalemia resolved BMP Avoid nephrotoxic drugs Thank you for the consultative opportunity Visit type - Emergency Visit Emergency Visit: Yes ED Registration Date: 12/12/18 Care time: The patient presented to the Emergency Department on the above date and was hospitalized for further evaluation of their emergent condition. - New Patient This patient is new to me today: No - Critical Care Critical Care patient: No - Discharge Referral Referred to [facility] No
--- NOTE | 2018-12-17 12:56 | PN ---
Teaching Attending Note Name of Resident: Liz Faria (Nephrology) ATTENDING PHYSICIAN STATEMENT I saw and evaluated the patient. I reviewed the resident's note and discussed the case with the resident. I agree with the resident's findings and plan as documented. Renal Pt seen and examined at bedside. She is awake and alert. Current Medications Generic Name Dose Route Start Last Admin Trade Name Freq PRN Reason Stop Dose Admin Acetaminophen 650 mg 12/14/18 12:44 12/16/18 20:42 Tylenol - PO 650 mg Q4H PRN Administration PAIN OR FEVER Albuterol/Ipratropium 1 amp 12/14/18 13:00 12/17/18 11:19 Duoneb - NEB 1 amp RQ4H EMMY Administration Ascorbic Acid 500 mg 12/14/18 10:00 12/17/18 10:01 Vitamin C - PO 500 mg DAILY EMMY Administration Cholestyramine Resin 4 gm 12/16/18 10:00 12/17/18 10:01 Questran Light Packet - PO 4 gm DAILY EMMY Administration Ferrous Sulfate 325 mg 12/13/18 22:00 12/17/18 09:59 Feosol - PO 325 mg BID EMMY Administration Guaifenesin 10 ml 12/14/18 12:46 Robitussin Dm - PO Q4H PRN COUGH Pantoprazole Sodium 40 mg/ 100 mls @ 200 mls/hr 12/15/18 10:00 12/17/18 10:01 Sodium Chloride IVPB Not Given DAILY EMMY Lactobacillus Acidophilus 1 tab 12/15/18 10:00 12/17/18 10:00 Bacid - PO 1 tab DAILY EMMY Administration Levothyroxine Sodium 50 mcg 12/14/18 07:00 12/17/18 06:54 Synthroid - PO 50 mcg DAILY@0700 EMMY Administration Loperamide HCl 2 mg 12/15/18 15:07 12/15/18 16:54 Imodium - PO 2 mg Q8H PRN Administration DIARRHEA Metoclopramide HCl 10 mg 12/14/18 13:15 12/17/18 06:56 Reglan Injection - IVPUSH Not Given Q8H EMMY Montelukast Sodium 10 mg 12/13/18 22:00 12/16/18 22:04 Singulair - PO 10 mg HS EMMY Administration Pramipexole Dihydrochloride 0.25 mg 12/13/18 14:00 12/17/18 06:55 Mirapex - PO Not Given TID EMMY Topiramate 100 mg 12/14/18 10:00 12/16/18 13:19 Topamax - PO 100 mg DAILY EMMY Administration Venlafaxine HCl 75 mg 12/14/18 10:00 12/17/18 10:00 Effexor Xr - PO 75 mg DAILY EMMY Administration Laboratory Tests 12/17/18 06:00 Sodium 136 Potassium 3.4 L Creatinine 0.9 Magnesium 1.5 L Last Vital Signs Temp Pulse Resp BP Pulse Ox 98.7 F 113 H 20 128/50 L 95 12/17/18 06:00 12/17/18 11:19 12/17/18 06:00 12/17/18 06:00 12/17/18 11:19 cardio s1s2 pulm trache GI soft ext neg edema skin tatoo Impression 1. monika 2. hypokalemia 3. resp failure 4. asthma 5. copd 6. htn 7. a-fib Plan - replace lytes - renal function stable - stop fluids - can see as outpt - can get ultrasound as outpt - will follow PRN Dr Olmedo
--- NOTE | 2018-12-17 13:51 | PN ---
Progress Note (short form) - Note Progress Note: PULMONARY VSS/AFEBRILE WANTS TO GO TO SNF OFFERS NO COMPLAINTS ANICTERIC/TRACH IN PLACE CLEAR BILATERAL LUNG DON S1S2 BS+ NO EDEMA LABS/MEDS/NOTES/IMAGES REVIEWED CHRONIC HYPOXEMIC/HYPERCAPNEIC RESP FAILURE WITH TRACH ON COLLAR COPD SNF RESIDENT H/O GI BLEED ANTICOAGULATION DUE TO AF NOW WITH SINUS DECUBITUS DEPRESSION/BIPOLAR RENAL STAENTS UTERINE CA DM/HYPOTHYROID HTN RESP STATUS STABLE/NO RADIOGRAPHIC EVIDENCE TO SUGGEST PNEUMONIA AGREE WITH CONTINUING TREATMENT AT SNF Sreedhar SEXTON MD
--- NOTE | 2018-12-17 16:17 | DS ---
Physical Examination Vital Signs: Vital Signs Temperature 98.3 F 12/17/18 10:00 Pulse Rate 113 H 12/17/18 11:19 Respiratory Rate 20 12/17/18 10:00 Blood Pressure 126/83 12/17/18 10:00 O2 Sat by Pulse Oximetry (%) 95 12/17/18 11:19 Findings/Remarks: Patient is a 53 y/o female with past medical history of Chronic respiratory failure, tracheostomy, asthma, COPD, O2 dependent, HTN, A-Fib (on Eliquis), HLD , Hypothyroidism, DM, GI bleed, Uterine CA, Renal stents, bipoalr disorder, Depression, chronic pain, decubitis ulcer. Patient presented to ER from [facility] with AMS, fever 102F. In ER patient temp 102.9F and tachycardic 113bpm. Patient was treated for sepsis as inpatient. Patient is currently afebrile. Constitutional: Yes: No Distress, Calm Eyes: Yes: Conjunctiva Clear HENT: Yes: Atraumatic Cardiovascular: Yes: Regular Rate and Rhythm Respiratory: Yes: Diminished, Other (tracheostomy) Gastrointestinal: Yes: Normal Bowel Sounds, Soft Musculoskeletal: Yes: Muscle Weakness Extremities: Yes: WNL Edema: No Neurological: Yes: Alert, Oriented Psychiatric: Yes: Alert, Oriented Labs: CBC, BMP 12/16/18 06:45 12/17/18 06:00 Microbiology 12/12/18 15:08 Blood - Peripheral Venous Blood Culture - Final NO GROWTH AFTER 5 DAYS INCUBATION 12/12/18 15:08 Blood - Peripheral Venous Blood Culture - Final NO GROWTH AFTER 5 DAYS INCUBATION 12/15/18 09:39 Stool Salmonella/Shigella Culture - Preliminary Non Lactose Fermenting Gnb 12/15/18 09:39 Stool Yersinia Culture - Preliminary NO ENTERIC PATHOGENS, 24 HOURS, ON PRIMARY PLATES 12/15/18 09:39 Stool Vibrio Culture - Final NO GROWTH OF VIBRIO SPECIES OBTAINED 12/15/18 09:39 Stool Escherichia coli 0157 Culture - Final NO GROWTH OF E COLI 0157 OBTAINED <Nan Coulter - Last Filed: 12/17/18 16:09> Vital Signs: Vital Signs Temperature 99.2 F 12/19/18 08:45 Pulse Rate 125 H 12/19/18 08:45 Respiratory Rate 22 H 12/19/18 08:45 Blood Pressure 127/86 12/19/18 08:45 O2 Sat by Pulse Oximetry (%) 99 12/19/18 07:51 Labs: CBC, BMP 12/18/18 07:50 12/18/18 07:50 <Kaz Goel - Last Filed: 12/19/18 09:13> Discharge Summary Reason For Visit: ACUTE KIDNEY INJURY,URINARY TRACT INFECTION, Current Active Problems LEEANNA (acute kidney injury) (Acute) Diarrhea (Acute) Sepsis (Acute) UTI (urinary tract infection) (Acute) Procedures: Principal: head CT scan, EKG, CXR - Home Medications Comprehensive Discharge Medication List: Ambulatory Orders Albuterol Sulfate Inhaler - [Ventolin HFA Inhaler -] 2 puff IH Q4H PRN #0 inhaler 11/29/16 Acetaminophen [Tylenol .Regular Strength -] 650 mg PO Q6H PRN #0 tablet Apixaban [Eliquis -] 5 mg PO BID tablet 04/29/17 Baclofen 10 mg PO TID 07/09/18 Levothyroxine [Synthroid -] 50 mcg PO DAILY 07/09/18 Rosuvastatin Calcium [Crestor] 10 mg PO DAILY 07/09/18 Montelukast Na [Singulair -] 10 mg PO HS 08/07/18 Topiramate [Topamax -] 100 mg PO DAILY #30 tablet 08/15/18 Alprazolam [Xanax] 0.25 mg PO Q8H PRN tablet MDD 3 10/23/18 Cholecalciferol (Vitamin D3) [Vitamin D3 -] 1,000 unit PO DAILY tab 11/09/18 Cyanocobalamin Vit B-12 Inj. [Vitamin B12 Injection -] 1,000 mcg IM Q7D@1000 vial 11/09/18 Diltiazem Cd [Cardizem Cd -] 180 mg PO DAILY cap.cd.24h 11/09/18 Doxepin HCl [Sinequan -] 25 mg PO HS capsule 11/09/18 Ferrous Sulfate [Feosol] 325 mg PO BID ud 11/09/18 Nystatin Powder [Nystop Powder -] 1 applic TP DAILY applic 11/09/18 HYDROmorphone [Dilaudid -] 2 mg PO Q4H PRN 12/12/18 Insulin Sliding Scale [Novolog Vial Sliding Scale -] 0 units SQ TIDAC 12/12/18 Loperamide HCl [Loperamide] 2 mg PO HS PRN 12/12/18 Potassium Chloride 20 meq PO DAILY 12/12/18 Pramipexole Di-HCl [Mirapex] 0.5 mg PO TID 12/12/18 Ranitidine [Zantac -] 150 mg PO DAILY 12/12/18 Venlafaxine HCl ER [Effexor Xr -] 75 mg PO DAILY 12/12/18 Vitamin B Comp W-C [Nephro-Héctor -] 1 tablet PO DAILY 12/12/18 hydrOXYzine HCL [Atarax -] 10 mg PO BID PRN 12/12/18 <Nan Coulter - Last Filed: 12/17/18 16:09> Current Active Problems LEEANNA (acute kidney injury) (Acute) Diarrhea (Acute) Sepsis (Acute) UTI (urinary tract infection) (Acute) - Home Medications Comprehensive Discharge Medication List: Ambulatory Orders Albuterol Sulfate Inhaler - [Ventolin HFA Inhaler -] 2 puff IH Q4H PRN #0 inhaler 11/29/16 Acetaminophen [Tylenol .Regular Strength -] 650 mg PO Q6H PRN #0 tablet Apixaban [Eliquis -] 5 mg PO BID tablet 04/29/17 Baclofen 10 mg PO TID 07/09/18 Levothyroxine [Synthroid -] 50 mcg PO DAILY 07/09/18 Rosuvastatin Calcium [Crestor] 10 mg PO DAILY 07/09/18 Montelukast Na [Singulair -] 10 mg PO HS 08/07/18 Topiramate [Topamax -] 100 mg PO DAILY #30 tablet 08/15/18 Alprazolam [Xanax] 0.25 mg PO Q8H PRN tablet MDD 3 10/23/18 Cholecalciferol (Vitamin D3) [Vitamin D3 -] 1,000 unit PO DAILY tab 11/09/18 Cyanocobalamin Vit B-12 Inj. [Vitamin B12 Injection -] 1,000 mcg IM Q7D@1000 vial 11/09/18 Diltiazem Cd [Cardizem Cd -] 180 mg PO DAILY cap.cd.24h 11/09/18 Doxepin HCl [Sinequan -] 25 mg PO HS capsule 11/09/18 Ferrous Sulfate [Feosol] 325 mg PO BID ud 11/09/18 Nystatin Powder [Nystop Powder -] 1 applic TP DAILY applic 11/09/18 HYDROmorphone [Dilaudid -] 2 mg PO Q4H PRN 12/12/18 Insulin Sliding Scale [Novolog Vial Sliding Scale -] 0 units SQ TIDAC 12/12/18 Loperamide HCl [Loperamide] 2 mg PO HS PRN 12/12/18 Potassium Chloride 20 meq PO DAILY 12/12/18 Pramipexole Di-HCl [Mirapex] 0.5 mg PO TID 12/12/18 Ranitidine [Zantac -] 150 mg PO DAILY 12/12/18 Venlafaxine HCl ER [Effexor Xr -] 75 mg PO DAILY 12/12/18 Vitamin B Comp W-C [Nephro-Héctor -] 1 tablet PO DAILY 12/12/18 hydrOXYzine HCL [Atarax -] 10 mg PO BID PRN 12/12/18 <Kaz Goel - Last Filed: 12/19/18 09:13> Condition: Improved - Instructions Diet, Activity, Other Instructions: Follow up with PMD in 1 week Follow up with GI Dr. Esparza for outpatient colonoscopy cont with current med regimen cont with diabetic diet Referrals: Manolo Jaquez [Primary Care Provider] - Disposition: LONGTERM FACILITY
[2018-12-17] MEDS: ACETAMINOPHEN 325 MG TABLET (FP) PO PRN (19:43)
[2018-12-17] MEDS: MONTELUKAST NA 10 MG TABLET PO SCH (22:11)
[2018-12-18] MEDS: ALBUTEROL SO4 2.5/IPRATROPIUM 0.5 INH SOL 3 ML VIAL.NEB. NEB SCH ×6 (00:31→20:50)
[2018-12-18] MEDS ORDERED: PT OWN MED DRAWER 7, Y5N ONE ×4 (06:05→21:32)
[2018-12-18] MEDS: PRAMIPEXOLE DIHYDROCHLORIDE 0.25 MG TABLET PO SCH ×3 (06:22→21:45)
[2018-12-18] MEDS: LEVOTHYROXINE NA 50 MCG TABLET (FP) PO SCH (06:22)
[2018-12-18 08:24] LABS: HEMATOCRIT 31.1 % (32.4-45.2); HEMOGLOBIN 10.6 GM/dL (10.7-15.3); MCH 32.2 pg (25.7-33.7); MEAN CELL VOLUME 94.6 fl (80-96); MEAN PLT VOLUME 8.9 fl (7.5-11.1); PLATELET COUNT 258 K/MM3 (134-434); RBC 3.29 M/mm3 (3.60-5.2); RDW 20.4 % (11.6-15.6); WHITE BLOOD COUNT 9.9 K/mm3 (4.0-10.0)
[2018-12-18 08:58] LABS: ALBUMIN 1.9 g/dl (3.4-5.0); ALK PHOS 212 U/L (45-117); ANION GAP 18 MMOL/L (8-16); BILIRUBIN,TOTAL 1.2 mg/dL (0.2-1); BLOOD UREA NITROGEN 6 mg/dL (7-18); CALCIUM 7.4 mg/dL (8.5-10.1); CHLORIDE 103 mmol/L (98-107); CO2 19 mmol/L (21-32); CREATININE 0.8 mg/dL (0.55-1.3); GLUCOSE,RANDOM 64 mg/dL (74-106); POTASSIUM 3.3 mmol/L (3.5-5.1); SGOT/AST 38 U/L (15-37); SGPT/ALT 24 U/L (13-61); SODIUM 139 mmol/L (136-145)
[2018-12-18] MEDS: METOCLOPRAMIDE HCL INJECTION 10 MG/2 ML VIAL IVPUSH SCH ×3 (09:28→21:45)
[2018-12-18] MEDS: PANTOPRAZOLE SODIUM 40 MG in SODIUM CHLORIDE 100 ML IVPB SCH (09:28)
[2018-12-18] MEDS: CHOLESTYRAMINE/ASPARTAME 4 GM PACKET PO SCH (10:55)
[2018-12-18] MEDS: LACTOBACILLUS ACIDOPHILUS 1 TABLET PO SCH (10:55)
[2018-12-18] MEDS: FERROUS SO4 325 MG TABLET (FP) PO SCH ×2 (10:55→21:44)
[2018-12-18] MEDS: ASCORBIC ACID 500 MG TABLET (FP) PO SCH (10:55)
[2018-12-18] MEDS: TOPIRAMATE 100 MG TABLET PO SCH (10:57)
[2018-12-18] MEDS: VENLAFAXINE HCL 75 MG E.R. CAPSULES (FP) PO SCH (10:57)
--- NOTE | 2018-12-18 14:59 | PN ---
Progress Note (short form) - Note Progress Note: PULMONARY VSS/TMAX 99 WANTS TO GO TO SNF OFFERS NO COMPLAINTS ANICTERIC/TRACH IN PLACE CLEAR BILATERAL LUNG DON S1S2 BS+ NO EDEMA LABS/MEDS/NOTES/IMAGES REVIEWED CHRONIC HYPOXEMIC/HYPERCAPNEIC RESP FAILURE WITH TRACH ON 02 COLLAR COPD SNF RESIDENT H/O GI BLEED ANTICOAGULATION DUE TO AF NOW WITH SINUS DECUBITUS DEPRESSION/BIPOLAR RENAL STAENTS UTERINE CA DM/HYPOTHYROID HTN RESP STATUS STABLE/NO RADIOGRAPHIC EVIDENCE TO SUGGEST PNEUMONIA AGREE WITH CONTINUING TREATMENT AT SNF Sreedhar SEXTON MD
--- NOTE | 2018-12-18 19:10 | PN ---
Progress Note, Physician Chief Complaint: Sepsis Anemia LEEANNA History of Present Illness: Previous notes and events reviewed awake and alert NAD afebrile to be d/c back to SNF, waiting for available bed - Current Medication List Current Medications: Active Medications Acetaminophen (Tylenol -) 650 mg PO Q4H PRN PRN Reason: PAIN OR FEVER Last Admin: 12/17/18 19:43 Dose: 650 mg Albuterol/Ipratropium (Duoneb -) 1 amp NEB RQ4H [facility] Last Admin: 12/18/18 15:38 Dose: 1 amp Ascorbic Acid (Vitamin C -) 500 mg PO DAILY [facility] Last Admin: 12/18/18 10:55 Dose: 500 mg Cholestyramine Resin (Questran Light Packet -) 4 gm PO DAILY [facility] Last Admin: 12/18/18 10:55 Dose: 4 gm Ferrous Sulfate (Feosol -) 325 mg PO BID [facility] Last Admin: 12/18/18 10:55 Dose: Not Given Guaifenesin (Robitussin Dm -) 10 ml PO Q4H PRN PRN Reason: COUGH Pantoprazole Sodium 40 mg/ (Sodium Chloride) 100 mls @ 200 mls/hr IVPB DAILY [facility] Last Admin: 12/18/18 09:28 Dose: Not Given Lactobacillus Acidophilus (Bacid -) 1 tab PO DAILY [facility] Last Admin: 12/18/18 10:55 Dose: Not Given Levothyroxine Sodium (Synthroid -) 50 mcg PO DAILY@0700 [facility] Last Admin: 12/18/18 06:22 Dose: 50 mcg Loperamide HCl (Imodium -) 2 mg PO Q8H PRN PRN Reason: DIARRHEA Last Admin: 12/15/18 16:54 Dose: 2 mg Metoclopramide HCl (Reglan Injection -) 10 mg IVPUSH Q8H [facility] Last Admin: 12/18/18 14:30 Dose: Not Given Montelukast Sodium (Singulair -) 10 mg PO HS [facility] Last Admin: 12/17/18 22:11 Dose: 10 mg Pramipexole Dihydrochloride (Mirapex -) 0.25 mg PO TID [facility] Last Admin: 12/18/18 14:38 Dose: 0.25 mg Topiramate (Topamax -) 100 mg PO DAILY [facility] Last Admin: 12/18/18 10:57 Dose: 100 mg Venlafaxine HCl (Effexor Xr -) 75 mg PO DAILY [facility] Last Admin: 12/18/18 10:57 Dose: Not Given - Objective Vital Signs: Vital Signs Temperature 99.0 F 12/18/18 13:36 Pulse Rate 120 H 12/18/18 13:36 Respiratory Rate 24 H 12/18/18 13:36 Blood Pressure 140/93 12/18/18 13:36 O2 Sat by Pulse Oximetry (%) 98 12/18/18 08:01 Constitutional: Yes: No Distress, Calm Eyes: Yes: Conjunctiva Clear, EOM Intact Cardiovascular: Yes: Regular Rate and Rhythm Respiratory: Yes: Regular, CTA Bilaterally Gastrointestinal: Yes: Normal Bowel Sounds, Soft Genitourinary: Yes: Incontinence Musculoskeletal: Yes: Muscle Weakness Edema: No Neurological: Yes: Alert, Oriented Psychiatric: Yes: Alert, Oriented Labs: CBC, BMP 12/18/18 07:50 12/18/18 07:50 INR, PTT INR 1.80 (0.83-1.09) H 12/15/18 08:20 <Nan Coulter - Last Filed: 12/18/18 19:07> - Current Medication List Current Medications: Active Medications Acetaminophen (Tylenol -) 650 mg PO Q4H PRN PRN Reason: PAIN OR FEVER Last Admin: 12/18/18 21:50 Dose: 650 mg Albuterol/Ipratropium (Duoneb -) 1 amp NEB RQ4H [facility] Last Admin: 12/19/18 07:52 Dose: 1 amp Apixaban (Eliquis -) 5 mg PO BID [facility] Ascorbic Acid (Vitamin C -) 500 mg PO DAILY [facility] Last Admin: 12/18/18 10:55 Dose: 500 mg Cholestyramine Resin (Questran Light Packet -) 4 gm PO DAILY [facility] Last Admin: 12/18/18 10:55 Dose: 4 gm Ferrous Sulfate (Feosol -) 325 mg PO BID [facility] Last Admin: 12/18/18 21:44 Dose: 325 mg Guaifenesin (Robitussin Dm -) 10 ml PO Q4H PRN PRN Reason: COUGH Pantoprazole Sodium 40 mg/ (Sodium Chloride) 100 mls @ 200 mls/hr IVPB DAILY [facility] Last Admin: 12/18/18 09:28 Dose: Not Given Lactobacillus Acidophilus (Bacid -) 1 tab PO DAILY [facility] Last Admin: 12/18/18 10:55 Dose: Not Given Levothyroxine Sodium (Synthroid -) 50 mcg PO DAILY@0700 [facility] Last Admin: 12/19/18 06:02 Dose: 50 mcg Loperamide HCl (Imodium -) 2 mg PO Q8H PRN PRN Reason: DIARRHEA Last Admin: 12/15/18 16:54 Dose: 2 mg Metoclopramide HCl (Reglan Injection -) 10 mg IVPUSH Q8H [facility] Last Admin: 12/19/18 05:54 Dose: Not Given Montelukast Sodium (Singulair -) 10 mg PO HS [facility] Last Admin: 12/18/18 21:44 Dose: 10 mg Pramipexole Dihydrochloride (Mirapex -) 0.25 mg PO TID [facility] Last Admin: 12/19/18 05:55 Dose: 0.25 mg Topiramate (Topamax -) 100 mg PO DAILY [facility] Last Admin: 12/18/18 10:57 Dose: 100 mg Venlafaxine HCl (Effexor Xr -) 75 mg PO DAILY [facility] Last Admin: 12/18/18 10:57 Dose: Not Given - Objective Vital Signs: Vital Signs Temperature 99.2 F 12/19/18 08:45 Pulse Rate 125 H 12/19/18 08:45 Respiratory Rate 22 H 12/19/18 08:45 Blood Pressure 127/86 12/19/18 08:45 O2 Sat by Pulse Oximetry (%) 99 12/19/18 07:51 Labs: CBC, BMP 12/18/18 07:50 12/18/18 07:50 INR, PTT INR 1.80 (0.83-1.09) H 12/15/18 08:20 <Amando,Ammir - Last Filed: 12/19/18 09:14> Problem List - Problems (1) LEEANNA (acute kidney injury) Code(s): N17.9 - ACUTE KIDNEY FAILURE, UNSPECIFIED (2) Diarrhea Code(s): R19.7 - DIARRHEA, UNSPECIFIED (3) Sepsis Code(s): A41.9 - SEPSIS, UNSPECIFIED ORGANISM Qualifiers: Sepsis type: sepsis due to unspecified organism Qualified Code(s): A41.9 - Sepsis, unspecified organism (4) UTI (urinary tract infection) Code(s): N39.0 - URINARY TRACT INFECTION, SITE NOT SPECIFIED Qualifiers: Urinary tract infection type: acute cystitis Hematuria presence: without hematuria Qualified Code(s): N30.00 - Acute cystitis without hematuria (5) Acute and chronic respiratory failure with hypoxia Code(s): J96.21 - ACUTE AND CHRONIC RESPIRATORY FAILURE WITH HYPOXIA <Nan Coulter - Last Filed: 12/18/18 19:07> Assessment/Plan -cont contact precautions -nephrology on board -stool OB positive, GI on board -monitor H/H, pmhx of anemia, cont PO feosol -suction as needed -cont singulair, albuterol neb tx PRN -keep SpO2 >90% -pulm on board -to be d/c back to SNF, waiting for available bed -dvt ppx <Nan Coulter - Last Filed: 12/18/18 19:07> AWAITING BED AT SNF, AGREE WITH THE ABOVE NOTE <Kaz Goel - Last Filed: 12/19/18 09:14>
[2018-12-18] MEDS: MONTELUKAST NA 10 MG TABLET PO SCH (21:44)
[2018-12-18] MEDS: ACETAMINOPHEN 325 MG TABLET (FP) PO PRN (21:50)
[2018-12-19] MEDS: ALBUTEROL SO4 2.5/IPRATROPIUM 0.5 INH SOL 3 ML VIAL.NEB. NEB SCH ×4 (00:25→11:16)
[2018-12-19] MEDS: METOCLOPRAMIDE HCL INJECTION 10 MG/2 ML VIAL IVPUSH SCH ×3 (05:54→21:13)
[2018-12-19] MEDS: PRAMIPEXOLE DIHYDROCHLORIDE 0.25 MG TABLET PO SCH ×3 (05:55→21:13)
[2018-12-19] MEDS: LEVOTHYROXINE NA 50 MCG TABLET (FP) PO SCH (06:02)
[2018-12-19] MEDS: LACTOBACILLUS ACIDOPHILUS 1 TABLET PO SCH (10:00)
[2018-12-19] MEDS: PANTOPRAZOLE SODIUM 40 MG in SODIUM CHLORIDE 100 ML IVPB SCH (10:00)
[2018-12-19] MEDS: ACETAMINOPHEN 325 MG TABLET (FP) PO PRN ×2 (10:00→21:10)
[2018-12-19] MEDS: FERROUS SO4 325 MG TABLET (FP) PO SCH ×2 (10:00→21:13)
[2018-12-19] MEDS: VENLAFAXINE HCL 75 MG E.R. CAPSULES (FP) PO SCH (10:01)
[2018-12-19] MEDS: ASCORBIC ACID 500 MG TABLET (FP) PO SCH (10:01)
[2018-12-19] MEDS: APIXABAN 5 MG TABLET PO SCH ×2 (10:01→21:10)
[2018-12-19] MEDS: TOPIRAMATE 100 MG TABLET PO SCH (10:01)
[2018-12-19] MEDS: CHOLESTYRAMINE/ASPARTAME 4 GM PACKET PO SCH (10:28)
[2018-12-19] MEDS: ALPRAZolam 0.25 MG TABLET PO PRN ×2 (10:42→21:10)
--- NOTE | 2018-12-19 11:00 | PN ---
Progress Note (short form) - Note Progress Note: Patient examined lying in bed alert and awake, NAD. Patient complain of feeling anxious, placed on Xanax 0.25mg po q8h prn for anxiety. Patient denies chest pain, SOB, dizziness. Patient is pending discharge to SNF when bed become available. Problem List - Problems (1) LEEANNA (acute kidney injury) Code(s): N17.9 - ACUTE KIDNEY FAILURE, UNSPECIFIED (2) Diarrhea Code(s): R19.7 - DIARRHEA, UNSPECIFIED (3) Sepsis Code(s): A41.9 - SEPSIS, UNSPECIFIED ORGANISM Qualifiers: Sepsis type: sepsis due to unspecified organism Qualified Code(s): A41.9 - Sepsis, unspecified organism (4) UTI (urinary tract infection) Code(s): N39.0 - URINARY TRACT INFECTION, SITE NOT SPECIFIED Qualifiers: Urinary tract infection type: acute cystitis Hematuria presence: without hematuria Qualified Code(s): N30.00 - Acute cystitis without hematuria (5) Acute and chronic respiratory failure with hypoxia Code(s): J96.21 - ACUTE AND CHRONIC RESPIRATORY FAILURE WITH HYPOXIA
[2018-12-19 12:31] LABS: ALK PHOS 223 U/L (45-117); ANION GAP 21 MMOL/L (8-16); BILIRUBIN,TOTAL 1.1 mg/dL (0.2-1); BLOOD UREA NITROGEN 6 mg/dL (7-18); CALCIUM 7.7 mg/dL (8.5-10.1); CHLORIDE 102 mmol/L (98-107); CO2 14 mmol/L (21-32); CREATININE 0.8 mg/dL (0.55-1.3); GLUCOSE,RANDOM 73 mg/dL (74-106); POTASSIUM 3.1 mmol/L (3.5-5.1); SGOT/AST 39 U/L (15-37); SGPT/ALT 27 U/L (13-61); SODIUM 137 mmol/L (136-145); TOT PROT 6.6 g/dl (6.4-8.2)
--- NOTE | 2018-12-19 14:23 | PN ---
Progress Note (short form) - Note Progress Note: PULMONARY VSS/TMAX 98.0 SEEMS SLIGHTLY CONFUSED OFFERS NO COMPLAINTS TEMPORAL WASTING ANICTERIC/TRACH IN PLACE CLEAR BILATERAL LUNG DON S1S2 BS+ NO EDEMA LABS/MEDS/NOTES/IMAGES REVIEWED CHRONIC HYPOXEMIC/HYPERCAPNEIC RESP FAILURE WITH TRACH ON 02 COLLAR COPD SNF RESIDENT H/O GI BLEED ANTICOAGULATION DUE TO AF NOW WITH SINUS DECUBITUS DEPRESSION/BIPOLAR RENAL STAENTS UTERINE CA DM/HYPOTHYROID HTN WILL OBTAIN ABG CONTINUE ALL MEDS FOR NOW Sreedhar SEXTON MD
[2018-12-19 14:51] LABS: ARTERIAL BLD GAS O2 SATURATION 98.8 % (90-98.9); ARTERIAL BLOOD GAS BASE EXCESS -11.4 meq/l (-2-2); ARTERIAL BLOOD GAS PCO2 25.3 mmHg (35-45); ARTERIAL BLOOD GAS pH 7.33 (7.35-7.45)
[2018-12-19 14:52] LABS: ALLENS TEST POSITIVE
[2018-12-19] MEDS ORDERED: PT OWN MED DRAWER 7, Y5N ONE (21:12)
[2018-12-19] MEDS: MONTELUKAST NA 10 MG TABLET PO SCH (21:13)
[2018-12-20] MEDS: PRAMIPEXOLE DIHYDROCHLORIDE 0.25 MG TABLET PO SCH ×4 (05:58→21:41)
[2018-12-20] MEDS: METOCLOPRAMIDE HCL INJECTION 10 MG/2 ML VIAL IVPUSH SCH ×4 (05:58→21:49)
[2018-12-20] MEDS: LEVOTHYROXINE NA 50 MCG TABLET (FP) PO SCH (05:59)
[2018-12-20] MEDS: ASCORBIC ACID 500 MG TABLET (FP) PO SCH (09:20)
[2018-12-20] MEDS: VENLAFAXINE HCL 75 MG E.R. CAPSULES (FP) PO SCH (09:20)
[2018-12-20] MEDS: TOPIRAMATE 100 MG TABLET PO SCH (09:20)
[2018-12-20] MEDS: ALPRAZolam 0.25 MG TABLET PO PRN ×2 (09:20→18:10)
[2018-12-20] MEDS: APIXABAN 5 MG TABLET PO SCH ×2 (09:20→21:41)
[2018-12-20] MEDS: CHOLESTYRAMINE/ASPARTAME 4 GM PACKET PO SCH (09:20)
[2018-12-20] MEDS: PANTOPRAZOLE SODIUM 40 MG in SODIUM CHLORIDE 100 ML IVPB SCH (09:21)
[2018-12-20] MEDS: LACTOBACILLUS ACIDOPHILUS 1 TABLET PO SCH (09:33)
[2018-12-20] MEDS: FERROUS SO4 325 MG TABLET (FP) PO SCH ×2 (09:33→21:42)
[2018-12-20] MEDS ORDERED: POTASSIUM CHLORIDE TABS 20 MEQ TABLET.ER (FP) PO ONE (09:47)
--- NOTE | 2018-12-20 10:10 | PN ---
Progress Note, Physician Chief Complaint: Sepsis Anemia LEEANNA History of Present Illness: Patient seen and case discussed with Dr. Esparza Patient is a 53 y/o female with chronic respiratory failure, tracheostomy, asthma, COPD, O2 dependent, HTN, afib (on Eliquis), HLD, Hypothyroidism, DM, GI bleed, Uterine CA, Renal stents, bipolar, depression. Patient was initially consult by GI for anemia with drop in Hg from 11.0 to 7.8. Stool guaiac noted to be positive. Patient also complained of LLQ pain with non-bloody diarrhea throughout the day. Diarrhea has since subsided but does have loose bowel movements. Recommendation was for patient to colonoscopy in regards to stool guaiac positive and LLQ pain with diarrhea. Patient has refused colonoscopy, risks of not having a colonoscopy performed discussed with patient. - Current Medication List Current Medications: Active Medications Acetaminophen (Tylenol -) 650 mg PO Q4H PRN PRN Reason: PAIN OR FEVER Last Admin: 12/19/18 21:10 Dose: 650 mg Albuterol/Ipratropium (Duoneb -) 1 amp NEB RQ4H [facility] Alprazolam (Xanax -) 0.25 mg PO Q8H PRN PRN Reason: ANXIETY Last Admin: 12/20/18 09:20 Dose: 0.25 mg Apixaban (Eliquis -) 5 mg PO BID [facility] Last Admin: 12/20/18 09:20 Dose: 5 mg Ascorbic Acid (Vitamin C -) 500 mg PO DAILY [facility] Last Admin: 12/20/18 09:20 Dose: Not Given Cholestyramine Resin (Questran Light Packet -) 4 gm PO DAILY [facility] Last Admin: 12/20/18 09:20 Dose: Not Given Ferrous Sulfate (Feosol -) 325 mg PO BID [facility] Last Admin: 12/20/18 09:33 Dose: Not Given Guaifenesin (Robitussin Dm -) 10 ml PO Q4H PRN PRN Reason: COUGH Pantoprazole Sodium 40 mg/ (Sodium Chloride) 100 mls @ 200 mls/hr IVPB DAILY [facility] Last Admin: 12/20/18 09:21 Dose: Not Given Lactobacillus Acidophilus (Bacid -) 1 tab PO DAILY [facility] Last Admin: 12/20/18 09:33 Dose: Not Given Levothyroxine Sodium (Synthroid -) 50 mcg PO DAILY@0700 [facility] Last Admin: 12/20/18 05:59 Dose: 50 mcg Loperamide HCl (Imodium -) 2 mg PO Q8H PRN PRN Reason: DIARRHEA Last Admin: 12/15/18 16:54 Dose: 2 mg Metoclopramide HCl (Reglan Injection -) 10 mg IVPUSH Q8H [facility] Last Admin: 12/20/18 05:58 Dose: Not Given Montelukast Sodium (Singulair -) 10 mg PO HS [facility] Last Admin: 12/19/18 21:13 Dose: 10 mg Pramipexole Dihydrochloride (Mirapex -) 0.25 mg PO TID [facility] Last Admin: 12/20/18 05:58 Dose: 0.25 mg Topiramate (Topamax -) 100 mg PO DAILY [facility] Last Admin: 12/20/18 09:20 Dose: Not Given Venlafaxine HCl (Effexor Xr -) 75 mg PO DAILY [facility] Last Admin: 12/20/18 09:20 Dose: 75 mg - Objective Vital Signs: Vital Signs Temperature 99.5 F 12/20/18 08:56 Pulse Rate 129 H 12/20/18 08:56 Respiratory Rate 22 H 12/20/18 08:56 Blood Pressure 128/84 12/20/18 08:56 O2 Sat by Pulse Oximetry (%) 99 12/20/18 07:21 Constitutional: Yes: No Distress, Anxious Eyes: Yes: Conjunctiva Clear Neck: Yes: Other (tracheostomy) Cardiovascular: Yes: Regular Rate and Rhythm Respiratory: Yes: Regular, CTA Bilaterally, Other (O2 via trache collar) Gastrointestinal: Yes: Normal Bowel Sounds, Soft, Tenderness (mild, generalized) Genitourinary: Yes: Incontinence Musculoskeletal: Yes: Joint Stiffness, Muscle Weakness Edema: No Neurological: Yes: Alert, Oriented Labs: CBC, BMP 12/18/18 07:50 12/19/18 11:20 INR, PTT INR 1.80 (0.83-1.09) H 12/15/18 08:20 <Nan Coulter - Last Filed: 12/20/18 09:54> - Current Medication List Current Medications: Active Medications Acetaminophen (Tylenol -) 650 mg PO Q4H PRN PRN Reason: PAIN OR FEVER Last Admin: 12/19/18 21:10 Dose: 650 mg Albuterol/Ipratropium (Duoneb -) 1 amp NEB RTID [facility] Last Admin: 12/20/18 20:40 Dose: 1 amp Alprazolam (Xanax -) 0.25 mg PO Q8H PRN PRN Reason: ANXIETY Last Admin: 12/21/18 01:21 Dose: 0.25 mg Apixaban (Eliquis -) 5 mg PO BID [facility] Last Admin: 12/20/18 21:41 Dose: 5 mg Ascorbic Acid (Vitamin C -) 500 mg PO DAILY [facility] Last Admin: 12/20/18 09:20 Dose: Not Given Cholestyramine Resin (Questran Light Packet -) 4 gm PO DAILY [facility] Last Admin: 12/20/18 09:20 Dose: Not Given Ferrous Sulfate (Feosol -) 325 mg PO BID [facility] Last Admin: 12/20/18 21:42 Dose: 325 mg Guaifenesin (Robitussin Dm -) 10 ml PO Q4H PRN PRN Reason: COUGH Hydromorphone HCl (Dilaudid -) 2 mg PO Q5H PRN PRN Reason: PAIN LEVEL 7 - 10 Last Admin: 12/21/18 01:21 Dose: 2 mg Pantoprazole Sodium 40 mg/ (Sodium Chloride) 100 mls @ 200 mls/hr IVPB DAILY [facility] Last Admin: 12/20/18 09:21 Dose: Not Given Lactobacillus Acidophilus (Bacid -) 1 tab PO DAILY [facility] Last Admin: 12/20/18 09:33 Dose: Not Given Levothyroxine Sodium (Synthroid -) 75 mcg PO DAILY@0700 [facility] Loperamide HCl (Imodium -) 2 mg PO Q8H PRN PRN Reason: DIARRHEA Last Admin: 12/15/18 16:54 Dose: 2 mg Metoclopramide HCl (Reglan Injection -) 10 mg IVPUSH Q8H [facility] Last Admin: 12/20/18 21:49 Dose: Not Given Montelukast Sodium (Singulair -) 10 mg PO HS [facility] Last Admin: 12/20/18 21:40 Dose: 10 mg Pramipexole Dihydrochloride (Mirapex -) 0.25 mg PO TID [facility] Last Admin: 12/20/18 21:41 Dose: 0.25 mg Topiramate (Topamax -) 100 mg PO DAILY [facility] Last Admin: 12/20/18 09:20 Dose: Not Given Venlafaxine HCl (Effexor Xr -) 75 mg PO DAILY [facility] Last Admin: 12/20/18 09:20 Dose: 75 mg - Objective Vital Signs: Vital Signs Temperature 98.6 F 12/21/18 05:00 Pulse Rate 120 H 12/21/18 05:00 Respiratory Rate 16 12/21/18 05:00 Blood Pressure 117/89 12/21/18 05:00 O2 Sat by Pulse Oximetry (%) 100 12/20/18 20:26 Labs: CBC, BMP 12/20/18 12:18 12/20/18 12:18 INR, PTT INR 1.80 (0.83-1.09) H 12/15/18 08:20 <Kaz Goel - Last Filed: 12/21/18 05:49> Problem List - Problems (1) LEEANNA (acute kidney injury) Code(s): N17.9 - ACUTE KIDNEY FAILURE, UNSPECIFIED (2) Diarrhea Assessment/Plan: > currently resolved Code(s): R19.7 - DIARRHEA, UNSPECIFIED (3) Sepsis Code(s): A41.9 - SEPSIS, UNSPECIFIED ORGANISM Qualifiers: Sepsis type: sepsis due to unspecified organism Qualified Code(s): A41.9 - Sepsis, unspecified organism (4) UTI (urinary tract infection) Code(s): N39.0 - URINARY TRACT INFECTION, SITE NOT SPECIFIED Qualifiers: Urinary tract infection type: acute cystitis Hematuria presence: without hematuria Qualified Code(s): N30.00 - Acute cystitis without hematuria (5) Acute and chronic respiratory failure with hypoxia Code(s): J96.21 - ACUTE AND CHRONIC RESPIRATORY FAILURE WITH HYPOXIA (6) Anemia Assessment/Plan: > H/H has been stable >due to patient refusing colonoscopy recommend cologuard for patient in place of colonoscopy Code(s): D64.9 - ANEMIA, UNSPECIFIED <Nan Coulter - Last Filed: 12/20/18 09:54> Assessment/Plan AWAITING TRANSFER I AGREE WITH THE ABOVE NOTE <Kaz Goel - Last Filed: 12/21/18 05:49>
--- NOTE | 2018-12-20 11:40 | PN ---
Progress Note (short form) - Note Progress Note: PULMONARY Reports mild shortness of breath. Occasional cough. No fevers. ABG yesterday showing metabolic acidosis. Vital Signs Period Temp Pulse Resp BP Sys/Dan Pulse Ox Last 24 Hr 98.0 F-99.5 F 108-129 22-24 128-136/75-94 99-99 Gen: mildly tachypneic at rest, anxious Heart: tachycardic, regular Lung: decreased breath sounds at the bases Abd: soft, nontender Ext: no edema CBC, BMP 12/18/18 07:50 12/19/18 11:20 ABG Results ABG pH 7.33 (7.35-7.45) L 12/19/18 14:20 ABG pCO2 at Pt Temp 25.3 mmHg (35-45) L D 12/19/18 14:20 ABG pO2 at Pt Temp 146.0 mmHg (80-100) H D 12/19/18 14:20 ABG HCO3 12.9 meq/L (22-26) L* 12/19/18 14:20 ABG O2 Sat (Measured) 98.8 % (90-98.9) 12/19/18 14:20 ABG O2 Content 15.7 % vol (15-22) 12/19/18 14:20 ABG Base Excess -11.4 meq/l (-2-2) L* 12/19/18 14:20 Active Medications Acetaminophen (Tylenol -) 650 mg PO Q4H PRN PRN Reason: PAIN OR FEVER Last Admin: 12/19/18 21:10 Dose: 650 mg Albuterol/Ipratropium (Duoneb -) 1 amp NEB RQ4H [facility] Last Admin: 12/20/18 11:00 Dose: 1 amp Alprazolam (Xanax -) 0.25 mg PO Q8H PRN PRN Reason: ANXIETY Last Admin: 12/20/18 09:20 Dose: 0.25 mg Apixaban (Eliquis -) 5 mg PO BID [facility] Last Admin: 12/20/18 09:20 Dose: 5 mg Ascorbic Acid (Vitamin C -) 500 mg PO DAILY [facility] Last Admin: 12/20/18 09:20 Dose: Not Given Cholestyramine Resin (Questran Light Packet -) 4 gm PO DAILY [facility] Last Admin: 12/20/18 09:20 Dose: Not Given Ferrous Sulfate (Feosol -) 325 mg PO BID [facility] Last Admin: 12/20/18 09:33 Dose: Not Given Guaifenesin (Robitussin Dm -) 10 ml PO Q4H PRN PRN Reason: COUGH Pantoprazole Sodium 40 mg/ (Sodium Chloride) 100 mls @ 200 mls/hr IVPB DAILY [facility] Last Admin: 12/20/18 09:21 Dose: Not Given Lactobacillus Acidophilus (Bacid -) 1 tab PO DAILY [facility] Last Admin: 12/20/18 09:33 Dose: Not Given Levothyroxine Sodium (Synthroid -) 50 mcg PO DAILY@0700 [facility] Last Admin: 12/20/18 05:59 Dose: 50 mcg Loperamide HCl (Imodium -) 2 mg PO Q8H PRN PRN Reason: DIARRHEA Last Admin: 12/15/18 16:54 Dose: 2 mg Metoclopramide HCl (Reglan Injection -) 10 mg IVPUSH Q8H [facility] Last Admin: 12/20/18 10:54 Dose: Not Given Montelukast Sodium (Singulair -) 10 mg PO HS [facility] Last Admin: 12/19/18 21:13 Dose: 10 mg Pramipexole Dihydrochloride (Mirapex -) 0.25 mg PO TID [facility] Last Admin: 12/20/18 10:54 Dose: Not Given Topiramate (Topamax -) 100 mg PO DAILY [facility] Last Admin: 12/20/18 09:20 Dose: Not Given Venlafaxine HCl (Effexor Xr -) 75 mg PO DAILY [facility] Last Admin: 12/20/18 09:20 Dose: 75 mg A/P Chronic Hypoxic and Hypercapneic Respiratory Failure COPD Anion Gap Metabolic Acidosis Paroxysmal Atrial Fibrillation h/o GI bleed HTN DM h/o Uterine Ca Depression Bipolar Disorder - check BMP, anion gap, lactate - if anion gap worse, repeat ABG - inhaled bronchodilators as needed - O2 to keep SpO2 >90% - consider IVF
[2018-12-20] MEDS ORDERED: ALBUTEROL SO4 2.5/IPRATROPIUM 0.5 INH SOL 3 ML VIAL.NEB. NEB SCH (12:00)
[2018-12-20] MEDS ORDERED: HYDROmorphone HCL 2 MG TABLET PO PRN (12:04)
--- NOTE | 2018-12-20 12:17 | PN ---
Progress Note, Physician Chief Complaint: awaiting for bed at [facility] patient takes dilaudid 3mg every 4 hr s s needed [address] [facility] faciltiy confirmed by her records todays labs ordered - Current Medication List Current Medications: Active Medications Acetaminophen (Tylenol -) 650 mg PO Q4H PRN PRN Reason: PAIN OR FEVER Last Admin: 12/19/18 21:10 Dose: 650 mg Albuterol/Ipratropium (Duoneb -) 1 amp NEB RTID [facility] Alprazolam (Xanax -) 0.25 mg PO Q8H PRN PRN Reason: ANXIETY Last Admin: 12/20/18 09:20 Dose: 0.25 mg Apixaban (Eliquis -) 5 mg PO BID [facility] Last Admin: 12/20/18 09:20 Dose: 5 mg Ascorbic Acid (Vitamin C -) 500 mg PO DAILY [facility] Last Admin: 12/20/18 09:20 Dose: Not Given Cholestyramine Resin (Questran Light Packet -) 4 gm PO DAILY [facility] Last Admin: 12/20/18 09:20 Dose: Not Given Ferrous Sulfate (Feosol -) 325 mg PO BID [facility] Last Admin: 12/20/18 09:33 Dose: Not Given Guaifenesin (Robitussin Dm -) 10 ml PO Q4H PRN PRN Reason: COUGH Hydromorphone HCl (Dilaudid -) 2 mg PO Q4H PRN PRN Reason: PAIN LEVEL 7 - 10 Pantoprazole Sodium 40 mg/ (Sodium Chloride) 100 mls @ 200 mls/hr IVPB DAILY [facility] Last Admin: 12/20/18 09:21 Dose: Not Given Lactobacillus Acidophilus (Bacid -) 1 tab PO DAILY [facility] Last Admin: 12/20/18 09:33 Dose: Not Given Levothyroxine Sodium (Synthroid -) 50 mcg PO DAILY@0700 [facility] Last Admin: 12/20/18 05:59 Dose: 50 mcg Loperamide HCl (Imodium -) 2 mg PO Q8H PRN PRN Reason: DIARRHEA Last Admin: 12/15/18 16:54 Dose: 2 mg Metoclopramide HCl (Reglan Injection -) 10 mg IVPUSH Q8H [facility] Last Admin: 12/20/18 10:54 Dose: Not Given Montelukast Sodium (Singulair -) 10 mg PO HS [facility] Last Admin: 12/19/18 21:13 Dose: 10 mg Pramipexole Dihydrochloride (Mirapex -) 0.25 mg PO TID [facility] Last Admin: 12/20/18 10:54 Dose: Not Given Topiramate (Topamax -) 100 mg PO DAILY [facility] Last Admin: 12/20/18 09:20 Dose: Not Given Venlafaxine HCl (Effexor Xr -) 75 mg PO DAILY [facility] Last Admin: 12/20/18 09:20 Dose: 75 mg - Objective Vital Signs: Vital Signs Temperature 99.5 F 12/20/18 08:56 Pulse Rate 129 H 12/20/18 08:56 Respiratory Rate 22 H 12/20/18 08:56 Blood Pressure 128/84 12/20/18 08:56 O2 Sat by Pulse Oximetry (%) 99 12/20/18 07:21 Constitutional: Yes: Calm, Anxious Neck: Yes: Other (trach colar) Cardiovascular: Yes: Regular Rate and Rhythm, S1, S2 Respiratory: Yes: Rhonchi Gastrointestinal: Yes: Normal Bowel Sounds, Soft Neurological: Yes: Alert, Oriented Labs: CBC, BMP 12/18/18 07:50 12/19/18 11:20 INR, PTT INR 1.80 (0.83-1.09) H 12/15/18 08:20 Problem List - Problems (1) Sepsis Assessment/Plan: iv abx- completed uti morganella observe off abx no fever no wbc Code(s): A41.9 - SEPSIS, UNSPECIFIED ORGANISM Qualifiers: Sepsis type: sepsis due to unspecified organism Qualified Code(s): A41.9 - Sepsis, unspecified organism (2) Anemia Assessment/Plan: repeat cbc now is better check stool for occult blood noted GI consult appreciate iron panel noted Code(s): D64.9 - ANEMIA, UNSPECIFIED (3) Back pain Assessment/Plan: diluadid prn Code(s): M54.9 - DORSALGIA, UNSPECIFIED (4) Hypothyroid Assessment/Plan: tsh elevated 6.01 synthroid 50mcg to 75 mcg Code(s): E03.9 - HYPOTHYROIDISM, UNSPECIFIED Qualifiers: (5) Restless leg syndrome Assessment/Plan: mirapex Code(s): G25.81 - RESTLESS LEGS SYNDROME (6) Afib Assessment/Plan: eliquis Code(s): I48.91 - UNSPECIFIED ATRIAL FIBRILLATION (7) Anxiety Assessment/Plan: xanax prn Code(s): F41.9 - ANXIETY DISORDER, UNSPECIFIED (8) Respiratory failure Assessment/Plan: chronic resp failure s/p trach collar Code(s): J96.90 - RESPIRATORY FAILURE, UNSP, UNSP W HYPOXIA OR HYPERCAPNIA Assessment/Plan repeat labs pending
[2018-12-20 12:39] LABS: BASO % 0.6 % (0-2.0); EOS % 3.3 % (0-4.5); HEMATOCRIT 37.8 % (32.4-45.2); HEMOGLOBIN 12.6 GM/dL (10.7-15.3); LYMPH % 15.9 % (8-40); MCHC 33.3 g/dl (32.0-36.0); MEAN PLT VOLUME 8.1 fl (7.5-11.1); MONO % 5.7 % (3.8-10.2); NEUT % 74.5 % (42.8-82.8); PLATELET COUNT 554 K/MM3 (134-434); RBC 3.94 M/mm3 (3.60-5.2); RDW 20.3 % (11.6-15.6); WHITE BLOOD COUNT 17.9 K/mm3 (4.0-10.0)
[2018-12-20 13:21] LABS: ALBUMIN 2.3 g/dl (3.4-5.0); ALK PHOS 252 U/L (45-117); ANION GAP 20 MMOL/L (8-16); BILIRUBIN,TOTAL 1.1 mg/dL (0.2-1); BLOOD UREA NITROGEN 6 mg/dL (7-18); CALCIUM 8.2 mg/dL (8.5-10.1); CHLORIDE 101 mmol/L (98-107); CO2 15 mmol/L (21-32); GLUCOSE,RANDOM 93 mg/dL (74-106); MAGNESIUM 2.2 mg/dL (1.8-2.4); POTASSIUM 3.3 mmol/L (3.5-5.1); SGOT/AST 49 U/L (15-37); SGPT/ALT 32 U/L (13-61); SODIUM 136 mmol/L (136-145); TOT PROT 7.3 g/dl (6.4-8.2)
[2018-12-20] MEDS: ALBUTEROL SO4 2.5/IPRATROPIUM 0.5 INH SOL 3 ML VIAL.NEB. NEB SCH ×2 (13:24→20:40)
--- NOTE | 2018-12-20 15:45 | PN ---
Progress Note, Physician History of Present Illness: Pt seen and examined at bedside. SHe is awake and alert. - Current Medication List Current Medications: Active Medications Acetaminophen (Tylenol -) 650 mg PO Q4H PRN PRN Reason: PAIN OR FEVER Last Admin: 12/19/18 21:10 Dose: 650 mg Albuterol/Ipratropium (Duoneb -) 1 amp NEB RTID [facility] Last Admin: 12/20/18 13:24 Dose: 1 amp Alprazolam (Xanax -) 0.25 mg PO Q8H PRN PRN Reason: ANXIETY Last Admin: 12/20/18 09:20 Dose: 0.25 mg Apixaban (Eliquis -) 5 mg PO BID [facility] Last Admin: 12/20/18 09:20 Dose: 5 mg Ascorbic Acid (Vitamin C -) 500 mg PO DAILY [facility] Last Admin: 12/20/18 09:20 Dose: Not Given Cholestyramine Resin (Questran Light Packet -) 4 gm PO DAILY [facility] Last Admin: 12/20/18 09:20 Dose: Not Given Ferrous Sulfate (Feosol -) 325 mg PO BID [facility] Last Admin: 12/20/18 09:33 Dose: Not Given Guaifenesin (Robitussin Dm -) 10 ml PO Q4H PRN PRN Reason: COUGH Hydromorphone HCl (Dilaudid -) 2 mg PO Q4H PRN PRN Reason: PAIN LEVEL 7 - 10 Last Admin: 12/20/18 12:41 Dose: 2 mg Pantoprazole Sodium 40 mg/ (Sodium Chloride) 100 mls @ 200 mls/hr IVPB DAILY [facility] Last Admin: 12/20/18 09:21 Dose: Not Given Lactobacillus Acidophilus (Bacid -) 1 tab PO DAILY [facility] Last Admin: 12/20/18 09:33 Dose: Not Given Levothyroxine Sodium (Synthroid -) 75 mcg PO DAILY@0700 [facility] Loperamide HCl (Imodium -) 2 mg PO Q8H PRN PRN Reason: DIARRHEA Last Admin: 12/15/18 16:54 Dose: 2 mg Metoclopramide HCl (Reglan Injection -) 10 mg IVPUSH Q8H [facility] Last Admin: 12/20/18 12:38 Dose: Not Given Montelukast Sodium (Singulair -) 10 mg PO HS [facility] Last Admin: 12/19/18 21:13 Dose: 10 mg Pramipexole Dihydrochloride (Mirapex -) 0.25 mg PO TID [facility] Last Admin: 12/20/18 14:01 Dose: 0.25 mg Topiramate (Topamax -) 100 mg PO DAILY [facility] Last Admin: 12/20/18 09:20 Dose: Not Given Venlafaxine HCl (Effexor Xr -) 75 mg PO DAILY [facility] Last Admin: 12/20/18 09:20 Dose: 75 mg - Objective Vital Signs: Vital Signs Temperature 99.5 F 12/20/18 08:56 Pulse Rate 129 H 12/20/18 08:56 Respiratory Rate 22 H 12/20/18 08:56 Blood Pressure 128/84 12/20/18 08:56 O2 Sat by Pulse Oximetry (%) 99 12/20/18 07:21 Constitutional: Yes: Calm Eyes: Yes: Conjunctiva Clear HENT: Yes: Atraumatic Cardiovascular: Yes: S1, S2 Respiratory: Yes: Other (trache) Gastrointestinal: Yes: Soft Genitourinary: Yes: WNL Musculoskeletal: Yes: WNL Edema: No Neurological: Yes: Oriented Psychiatric: Yes: Oriented Labs: CBC, BMP 12/20/18 12:18 12/20/18 12:18 INR, PTT INR 1.80 (0.83-1.09) H 12/15/18 08:20 Assessment/Plan Current Medications Generic Name Dose Route Start Last Admin Trade Name Freq PRN Reason Stop Dose Admin Acetaminophen 650 mg 12/14/18 12:44 12/19/18 21:10 Tylenol - PO 650 mg Q4H PRN Administration PAIN OR FEVER Albuterol/Ipratropium 1 amp 12/20/18 14:00 12/20/18 13:24 Duoneb - NEB 1 amp RTID [facility] Administration Alprazolam 0.25 mg 12/19/18 10:19 12/20/18 09:20 Xanax - PO 0.25 mg Q8H PRN Administration ANXIETY Apixaban 5 mg 12/19/18 10:00 12/20/18 09:20 Eliquis - PO 5 mg BID [facility] Administration Ascorbic Acid 500 mg 12/14/18 10:00 12/20/18 09:20 Vitamin C - PO Not Given DAILY [facility] Cholestyramine Resin 4 gm 12/16/18 10:00 12/20/18 09:20 Questran Light Packet - PO Not Given DAILY [facility] Ferrous Sulfate 325 mg 12/13/18 22:00 12/20/18 09:33 Feosol - PO Not Given BID [facility] Guaifenesin 10 ml 12/14/18 12:46 Robitussin Dm - PO Q4H PRN COUGH Hydromorphone HCl 2 mg 12/20/18 12:04 12/20/18 12:41 Dilaudid - PO 2 mg Q4H PRN Administration PAIN LEVEL 7 - 10 Pantoprazole Sodium 40 mg/ 100 mls @ 200 mls/hr 12/15/18 10:00 12/20/18 09:21 Sodium Chloride IVPB Not Given DAILY [facility] Lactobacillus Acidophilus 1 tab 12/15/18 10:00 12/20/18 09:33 Bacid - PO Not Given DAILY [facility] Levothyroxine Sodium 75 mcg 12/20/18 12:16 Synthroid - PO DAILY@0700 [facility] Loperamide HCl 2 mg 12/15/18 15:07 12/15/18 16:54 Imodium - PO 2 mg Q8H PRN Administration DIARRHEA Metoclopramide HCl 10 mg 12/14/18 13:15 12/20/18 12:38 Reglan Injection - IVPUSH Not Given Q8H [facility] Montelukast Sodium 10 mg 12/13/18 22:00 12/19/18 21:13 Singulair - PO 10 mg HS [facility] Administration Pramipexole Dihydrochloride 0.25 mg 12/13/18 14:00 12/20/18 14:01 Mirapex - PO 0.25 mg TID [facility] Administration Topiramate 100 mg 12/14/18 10:00 12/20/18 09:20 Topamax - PO Not Given DAILY [facility] Venlafaxine HCl 75 mg 12/14/18 10:00 12/20/18 09:20 Effexor Xr - PO 75 mg DAILY [facility] Administration Impression 1. monika 2. hypokalemia 3. resp failure 4. asthma 5. copd 6. htn 7. a-fib 8. metabolic acidosis Plan - replace potassium - check cxr - labs are worse today - check ua - check urine lytes - check mag - hold off bicarb for now as she is hypokalemic Dr Olmedo
[2018-12-20 15:48] LABS: ANISOCYTOSIS 1+; MACROCYTOSIS 0; PLATELET ESTIMATE INCREASED
--- NOTE | 2018-12-20 15:49 | PN ---
Progress Note (short form) - Note Progress Note: wbc count noted to be elevate bmp noted for metabolic acidosis renal and ID follow up replete lytes and stop transfer Problem List - Problems (1) Sepsis Code(s): A41.9 - SEPSIS, UNSPECIFIED ORGANISM Qualifiers: Qualified Code(s): A41.9 - Sepsis, unspecified organism (2) Anemia Code(s): D64.9 - ANEMIA, UNSPECIFIED (3) Back pain Code(s): M54.9 - DORSALGIA, UNSPECIFIED (4) Hypothyroid Code(s): E03.9 - HYPOTHYROIDISM, UNSPECIFIED Qualifiers: (5) Restless leg syndrome Code(s): G25.81 - RESTLESS LEGS SYNDROME (6) Afib Code(s): I48.91 - UNSPECIFIED ATRIAL FIBRILLATION (7) Anxiety Code(s): F41.9 - ANXIETY DISORDER, UNSPECIFIED (8) Respiratory failure Code(s): J96.90 - RESPIRATORY FAILURE, UNSP, UNSP W HYPOXIA OR HYPERCAPNIA
[2018-12-20] MEDS: HYDROmorphone HCL 2 MG TABLET PO PRN (18:10)
[2018-12-20] MEDS ORDERED: PT OWN MED DRAWER 7, Y5N ONE (20:50)
[2018-12-20] MEDS: MONTELUKAST NA 10 MG TABLET PO SCH (21:40)
[2018-12-21] MEDS: ALPRAZolam 0.25 MG TABLET PO PRN ×3 (01:21→21:56)
[2018-12-21] MEDS: HYDROmorphone HCL 2 MG TABLET PO PRN ×3 (01:21→20:26)
[2018-12-21] MEDS ORDERED: PT OWN MED DRAWER 7, Y5N ONE ×2 (05:28→10:02)
[2018-12-21] MEDS: METOCLOPRAMIDE HCL INJECTION 10 MG/2 ML VIAL IVPUSH SCH ×3 (05:53→21:55)
[2018-12-21] MEDS: PRAMIPEXOLE DIHYDROCHLORIDE 0.25 MG TABLET PO SCH ×3 (06:32→21:56)
[2018-12-21] MEDS: LEVOTHYROXINE NA 75 MCG TABLET (FP) PO SCH (06:32)
[2018-12-21] MEDS: ALBUTEROL SO4 2.5/IPRATROPIUM 0.5 INH SOL 3 ML VIAL.NEB. NEB SCH ×3 (07:45→19:00)
--- NOTE | 2018-12-21 07:52 | PN ---
Progress Note, Physician Chief Complaint: Sepsis Anemia LEEANNA History of Present Illness: Patient seen and case discussed with Dr. Esparza Patient is a 53 y/o female with chronic respiratory failure, tracheostomy, asthma, COPD, O2 dependent, HTN, afib (on Eliquis), HLD, Hypothyroidism, DM, GI bleed, Uterine CA, Renal stents, bipolar, depression. Patient was initially consult by GI for anemia with drop in Hg from 11.0 to 7.8. Stool guaiac noted to be positive. Patient was scheduled for discharge on 12/20/18 but recent labs showed elevated wbc. CMP shows mildy elev AST/Alk phosphatase (49/252). No reports of diarrhea, nausea, vomiting. - Current Medication List Current Medications: Active Medications Acetaminophen (Tylenol -) 650 mg PO Q4H PRN PRN Reason: PAIN OR FEVER Last Admin: 12/19/18 21:10 Dose: 650 mg Albuterol/Ipratropium (Duoneb -) 1 amp NEB RTID [facility] Last Admin: 12/20/18 20:40 Dose: 1 amp Alprazolam (Xanax -) 0.25 mg PO Q8H PRN PRN Reason: ANXIETY Last Admin: 12/21/18 01:21 Dose: 0.25 mg Apixaban (Eliquis -) 5 mg PO BID [facility] Last Admin: 12/20/18 21:41 Dose: 5 mg Ascorbic Acid (Vitamin C -) 500 mg PO DAILY [facility] Last Admin: 12/20/18 09:20 Dose: Not Given Cholestyramine Resin (Questran Light Packet -) 4 gm PO DAILY [facility] Last Admin: 12/20/18 09:20 Dose: Not Given Ferrous Sulfate (Feosol -) 325 mg PO BID [facility] Last Admin: 12/20/18 21:42 Dose: 325 mg Guaifenesin (Robitussin Dm -) 10 ml PO Q4H PRN PRN Reason: COUGH Hydromorphone HCl (Dilaudid -) 2 mg PO Q5H PRN PRN Reason: PAIN LEVEL 7 - 10 Last Admin: 12/21/18 06:34 Dose: 2 mg Pantoprazole Sodium 40 mg/ (Sodium Chloride) 100 mls @ 200 mls/hr IVPB DAILY [facility] Last Admin: 12/20/18 09:21 Dose: Not Given Lactobacillus Acidophilus (Bacid -) 1 tab PO DAILY [facility] Last Admin: 12/20/18 09:33 Dose: Not Given Levothyroxine Sodium (Synthroid -) 75 mcg PO DAILY@0700 [facility] Last Admin: 12/21/18 06:32 Dose: 75 mcg Loperamide HCl (Imodium -) 2 mg PO Q8H PRN PRN Reason: DIARRHEA Last Admin: 12/15/18 16:54 Dose: 2 mg Metoclopramide HCl (Reglan Injection -) 10 mg IVPUSH Q8H [facility] Last Admin: 12/21/18 05:53 Dose: Not Given Montelukast Sodium (Singulair -) 10 mg PO HS [facility] Last Admin: 12/20/18 21:40 Dose: 10 mg Pramipexole Dihydrochloride (Mirapex -) 0.25 mg PO TID [facility] Last Admin: 12/21/18 06:32 Dose: 0.25 mg Topiramate (Topamax -) 100 mg PO DAILY [facility] Last Admin: 12/20/18 09:20 Dose: Not Given Venlafaxine HCl (Effexor Xr -) 75 mg PO DAILY [facility] Last Admin: 12/20/18 09:20 Dose: 75 mg - Objective Vital Signs: Vital Signs Temperature 98.6 F 12/21/18 05:00 Pulse Rate 120 H 12/21/18 05:00 Respiratory Rate 16 12/21/18 05:00 Blood Pressure 117/89 12/21/18 05:00 O2 Sat by Pulse Oximetry (%) 100 12/20/18 20:26 Constitutional: Yes: Calm, Mild Distress Eyes: Yes: Conjunctiva Clear Neck: Yes: Other (tracheotomy) Cardiovascular: Yes: Tachycardia Respiratory: Yes: Rhonchi, Other (O2 via trache collar) Gastrointestinal: Yes: Normal Bowel Sounds, Soft Genitourinary: Yes: Incontinence Musculoskeletal: Yes: Joint Stiffness (B/L lower extremity), Muscle Weakness Neurological: Yes: Alert, Oriented Psychiatric: Yes: Alert, Oriented Labs: INR, PTT INR 1.80 (0.83-1.09) H 12/15/18 08:20 CBC,CMP WBC 17.9 K/mm3 (4.0-10.0) H 12/20/18 12:18 RBC 3.94 M/mm3 (3.60-5.2) 12/20/18 12:18 Hgb 12.6 GM/dL (10.7-15.3) 12/20/18 12:18 Hct 37.8 % (32.4-45.2) D 12/20/18 12:18 MCV 96.0 fl (80-96) 12/20/18 12:18 MCH 32.0 pg (25.7-33.7) 12/20/18 12:18 MCHC 33.3 g/dl (32.0-36.0) 12/20/18 12:18 RDW 20.3 % (11.6-15.6) H 12/20/18 12:18 Plt Count 554 K/MM3 (134-434) H D 12/20/18 12:18 MPV 8.1 fl (7.5-11.1) 12/20/18 12:18 Absolute Neuts (auto) 13.3 K/mm3 (1.5-8.0) H 12/20/18 12:18 Neutrophils % 74.5 % (42.8-82.8) 12/20/18 12:18 Neutrophils % (Manual) 64.0 % (42.8-82.8) 12/20/18 12:18 Band Neutrophils % 1.0 % 12/20/18 12:18 Lymphocytes % 15.9 % (8-40) 12/20/18 12:18 Lymphocytes % (Manual) 18.0 % (8-40) D 12/20/18 12:18 Monocytes % 5.7 % (3.8-10.2) 12/20/18 12:18 Monocytes % (Manual) 12 % (3.8-10.2) H 12/20/18 12:18 Eosinophils % 3.3 % (0-4.5) D 12/20/18 12:18 Eosinophils % (Manual) 3.0 % (0-4.5) 12/20/18 12:18 Basophils % 0.6 % (0-2.0) 12/20/18 12:18 Basophils % (Manual) 0.0 % (0-2.0) 12/20/18 12:18 Myelocytes % (Man) 0 % (0-2) D 12/20/18 12:18 Promyelocytes % (Man) 0 % (0-2) 12/20/18 12:18 Blast Cells % (Manual) 0 % (0-0) 12/20/18 12:18 Nucleated RBC % 0 % (0-0) 12/20/18 12:18 Metamyelocytes 0 % (0-2) 12/20/18 12:18 Hypochromia 0 12/20/18 12:18 Platelet Estimate Increased 12/20/18 12:18 Polychromasia 0 12/20/18 12:18 Poikilocytosis 0 12/20/18 12:18 Anisocytosis 1+ 12/20/18 12:18 Microcytosis 0 12/20/18 12:18 Macrocytosis 0 12/20/18 12:18 Stomatocytes 1+ 12/15/18 08:20 Sodium 136 mmol/L (136-145) 12/20/18 12:18 Potassium 3.3 mmol/L (3.5-5.1) L 12/20/18 12:18 Chloride 101 mmol/L (98-107) 12/20/18 12:18 Carbon Dioxide 15 mmol/L (21-32) L 12/20/18 12:18 Anion Gap 20 MMOL/L (8-16) H 12/20/18 12:18 BUN 6 mg/dL (7-18) L 12/20/18 12:18 Creatinine 1.0 mg/dL (0.55-1.3) 12/20/18 12:18 Creat Clearance w eGFR 58.45 (>60) 12/20/18 12:18 POC Glucometer 151.21922 UNITS (80-120) 12/12/18 15:04 Random Glucose 93 mg/dL (74-106) 12/20/18 12:18 Hemoglobin A1c % 4.0 % (4.2-6.3) L 12/14/18 05:30 Lactic Acid 1.1 mmol/L (0.4-2.0) 12/20/18 12:18 Calcium 8.2 mg/dL (8.5-10.1) L 12/20/18 12:18 Phosphorus 2.9 mg/dL (2.5-4.9) 12/17/18 06:00 Magnesium 2.2 mg/dL (1.8-2.4) 12/20/18 12:18 Iron 56 ug/dL (27-159) 12/15/18 08:20 TIBC 108 ug/dL (250-450) L 12/15/18 08:20 Iron Saturation 52 % (15-55) 12/15/18 08:20 Ferritin 185.2 ng/ml (8-388) 12/15/18 08:20 Total Bilirubin 1.1 mg/dL (0.2-1) H 12/20/18 12:18 AST 49 U/L (15-37) H 12/20/18 12:18 ALT 32 U/L (13-61) 12/20/18 12:18 Alkaline Phosphatase 252 U/L (45-117) H 12/20/18 12:18 Ammonia 118.60 umol/L (11-32) H 12/14/18 05:30 Troponin I < 0.02 ng/ml (0.00-0.05) 12/12/18 15:14 Total Protein 7.3 g/dl (6.4-8.2) 12/20/18 12:18 Albumin 2.3 g/dl (3.4-5.0) L 12/20/18 12:18 Triglycerides 322 mg/dL (0-150) H 12/14/18 05:30 Cholesterol 65 mg/dL (50-200) 12/14/18 05:30 Total LDL Cholesterol 35 mg/dL (5-100) 12/14/18 05:30 HDL Cholesterol 7 mg/dL (40-60) L 12/14/18 05:30 Vitamin B12 2564 pg/ml (193-986) H 12/15/18 08:20 Folate 1681 ng/mL (>498) 12/15/18 08:20 Serum Folate 55 ng/mL (3.1-17.5) H 12/14/18 13:21 Folate Hemolysate 524.6 ng/mL (Not Estab.) 12/15/18 08:20 TSH 6.01 uIU/ml (0.358-3.74) H 12/14/18 05:30 Problem List - Problems (1) LEEANNA (acute kidney injury) Code(s): N17.9 - ACUTE KIDNEY FAILURE, UNSPECIFIED (2) Diarrhea Assessment/Plan: > currently resolved Code(s): R19.7 - DIARRHEA, UNSPECIFIED (3) Sepsis Code(s): A41.9 - SEPSIS, UNSPECIFIED ORGANISM Qualifiers: Sepsis type: sepsis due to unspecified organism Qualified Code(s): A41.9 - Sepsis, unspecified organism (4) UTI (urinary tract infection) Code(s): N39.0 - URINARY TRACT INFECTION, SITE NOT SPECIFIED Qualifiers: Urinary tract infection type: acute cystitis Hematuria presence: without hematuria Qualified Code(s): N30.00 - Acute cystitis without hematuria (5) Acute and chronic respiratory failure with hypoxia Code(s): J96.21 - ACUTE AND CHRONIC RESPIRATORY FAILURE WITH HYPOXIA (6) Anemia Assessment/Plan: > H/H has been stable >due to patient refusing colonoscopy recommend cologuard for patient in place of colonoscopy Code(s): D64.9 - ANEMIA, UNSPECIFIED (7) LFT elevation Assessment/Plan: > Abdominal US ordered > Hepatitis profile, Fe, TIBC, Ferritin, soluble liver ABS IgG, alpha 1 antitrypsin ordered >R elevation of LFT possibly multifactorial, observe LFT daily and as outpatient Code(s): R94.5 - ABNORMAL RESULTS OF LIVER FUNCTION STUDIES
[2018-12-21 07:53] LABS: ALK PHOS 210 U/L (45-117); ANION GAP 19 MMOL/L (8-16); BILIRUBIN,TOTAL 1.1 mg/dL (0.2-1); BLOOD UREA NITROGEN 7 mg/dL (7-18); CALCIUM 8.2 mg/dL (8.5-10.1); CHLORIDE 101 mmol/L (98-107); CO2 14 mmol/L (21-32); CREATININE 0.8 mg/dL (0.55-1.3); GLUCOSE,RANDOM 61 mg/dL (74-106); MAGNESIUM 2.2 mg/dL (1.8-2.4); PHOSPHOROUS 3.1 mg/dL (2.5-4.9); POTASSIUM 4.6 mmol/L (3.5-5.1); SGOT/AST 71 U/L (15-37); SGPT/ALT 33 U/L (13-61); SODIUM 134 mmol/L (136-145); TOT PROT 6.7 g/dl (6.4-8.2)
[2018-12-21 08:15] LABS: BASO % 0.9 % (0-2.0); EOS % 3.1 % (0-4.5); HEMATOCRIT 34.9 % (32.4-45.2); HEMOGLOBIN 11.5 GM/dL (10.7-15.3); LYMPH % 16.1 % (8-40); MCH 32.1 pg (25.7-33.7); MCHC 32.9 g/dl (32.0-36.0); MEAN CELL VOLUME 97.6 fl (80-96); MEAN PLT VOLUME 8.7 fl (7.5-11.1); MONO % 6.5 % (3.8-10.2); NEUT % 73.4 % (42.8-82.8); PLATELET COUNT 548 K/MM3 (134-434); RBC 3.58 M/mm3 (3.60-5.2); RDW 20.4 % (11.6-15.6); WHITE BLOOD COUNT 16.1 K/mm3 (4.0-10.0)
--- NOTE | 2018-12-21 09:10 | PN ---
Progress Note, Physician - Current Medication List Current Medications: Active Medications Acetaminophen (Tylenol -) 650 mg PO Q4H PRN PRN Reason: PAIN OR FEVER Last Admin: 12/19/18 21:10 Dose: 650 mg Albuterol/Ipratropium (Duoneb -) 1 amp NEB RTID [facility] Last Admin: 12/20/18 20:40 Dose: 1 amp Alprazolam (Xanax -) 0.25 mg PO Q8H PRN PRN Reason: ANXIETY Last Admin: 12/21/18 01:21 Dose: 0.25 mg Apixaban (Eliquis -) 5 mg PO BID [facility] Last Admin: 12/20/18 21:41 Dose: 5 mg Ascorbic Acid (Vitamin C -) 500 mg PO DAILY [facility] Last Admin: 12/20/18 09:20 Dose: Not Given Cholestyramine Resin (Questran Light Packet -) 4 gm PO DAILY [facility] Last Admin: 12/20/18 09:20 Dose: Not Given Ferrous Sulfate (Feosol -) 325 mg PO BID [facility] Last Admin: 12/20/18 21:42 Dose: 325 mg Guaifenesin (Robitussin Dm -) 10 ml PO Q4H PRN PRN Reason: COUGH Hydromorphone HCl (Dilaudid -) 2 mg PO Q5H PRN PRN Reason: PAIN LEVEL 7 - 10 Last Admin: 12/21/18 06:34 Dose: 2 mg Pantoprazole Sodium 40 mg/ (Sodium Chloride) 100 mls @ 200 mls/hr IVPB DAILY [facility] Last Admin: 12/20/18 09:21 Dose: Not Given Lactobacillus Acidophilus (Bacid -) 1 tab PO DAILY [facility] Last Admin: 12/20/18 09:33 Dose: Not Given Levothyroxine Sodium (Synthroid -) 75 mcg PO DAILY@0700 [facility] Last Admin: 12/21/18 06:32 Dose: 75 mcg Loperamide HCl (Imodium -) 2 mg PO Q8H PRN PRN Reason: DIARRHEA Last Admin: 12/15/18 16:54 Dose: 2 mg Metoclopramide HCl (Reglan Injection -) 10 mg IVPUSH Q8H [facility] Last Admin: 12/21/18 05:53 Dose: Not Given Montelukast Sodium (Singulair -) 10 mg PO HS [facility] Last Admin: 12/20/18 21:40 Dose: 10 mg Pramipexole Dihydrochloride (Mirapex -) 0.25 mg PO TID [facility] Last Admin: 12/21/18 06:32 Dose: 0.25 mg Topiramate (Topamax -) 100 mg PO DAILY [facility] Last Admin: 12/20/18 09:20 Dose: Not Given Venlafaxine HCl (Effexor Xr -) 75 mg PO DAILY [facility] Last Admin: 12/20/18 09:20 Dose: 75 mg - Objective Vital Signs: Vital Signs Temperature 98.6 F 12/21/18 05:00 Pulse Rate 120 H 12/21/18 05:00 Respiratory Rate 16 12/21/18 05:00 Blood Pressure 117/89 12/21/18 05:00 O2 Sat by Pulse Oximetry (%) 100 12/20/18 20:26 Labs: CBC, BMP 12/21/18 06:30 12/21/18 06:30 INR, PTT INR 1.80 (0.83-1.09) H 12/15/18 08:20 Assessment/Plan - Problems (1) Sepsis Assessment/Plan: iv abx- completed uti morganella observe off abx no fever high wbc--Repeat cultures--id follow up Code(s): A41.9 - SEPSIS, UNSPECIFIED ORGANISM Qualifiers: Sepsis type: sepsis due to unspecified organism Qualified Code(s): A41.9 - Sepsis, unspecified organism (2) Anemia Assessment/Plan: repeat cbc now is better check stool for occult blood noted GI consult appreciate iron panel noted Code(s): D64.9 - ANEMIA, UNSPECIFIED (3) Back pain Assessment/Plan: diluadid prn Code(s): M54.9 - DORSALGIA, UNSPECIFIED (4) Hypothyroid Assessment/Plan: tsh elevated 6.01 synthroid 50mcg to 75 mcg Code(s): E03.9 - HYPOTHYROIDISM, UNSPECIFIED Qualifiers: (5) Restless leg syndrome Assessment/Plan: mirapex Code(s): G25.81 - RESTLESS LEGS SYNDROME (6) Afib Assessment/Plan: eliquis Code(s): I48.91 - UNSPECIFIED ATRIAL FIBRILLATION (7) Anxiety Assessment/Plan: xanax prn Code(s): F41.9 - ANXIETY DISORDER, UNSPECIFIED (8) Respiratory failure Assessment/Plan: chronic resp failure s/p trach collar Code(s): J96.90 - RESPIRATORY FAILURE, UNSP, UNSP W HYPOXIA OR HYPERCAPNIA
[2018-12-21] MEDS: ASCORBIC ACID 500 MG TABLET (FP) PO SCH (10:23)
[2018-12-21] MEDS: APIXABAN 5 MG TABLET PO SCH ×2 (10:24→21:56)
[2018-12-21] MEDS: FERROUS SO4 325 MG TABLET (FP) PO SCH ×2 (10:24→21:56)
[2018-12-21] MEDS: TOPIRAMATE 100 MG TABLET PO SCH (10:24)
[2018-12-21] MEDS: CHOLESTYRAMINE/ASPARTAME 4 GM PACKET PO SCH (10:24)
[2018-12-21] MEDS: VENLAFAXINE HCL 75 MG E.R. CAPSULES (FP) PO SCH (10:24)
[2018-12-21] MEDS: LACTOBACILLUS ACIDOPHILUS 1 TABLET PO SCH (10:25)
[2018-12-21] MEDS: PANTOPRAZOLE SODIUM 40 MG in SODIUM CHLORIDE 100 ML IVPB SCH (10:25)
[2018-12-21 10:42] LABS: ACETONE SERUM POSITIVE LARGE 3+ (NEGATIVE)
--- NOTE | 2018-12-21 11:19 | PN ---
Progress Note (short form) - Note Progress Note: PULMONARY Labs still with anion gap metabolic acidosis. Added on acetone level which was 3 +. Urine studies pending. Vital Signs Period Temp Pulse Resp BP Sys/Dan Pulse Ox Last 24 Hr 98.1 F-99.0 F 118-120 16-18 108-124/78-89 100 Gen: mildly tachypneic at rest, anxious Heart: tachycardic, regular Lung: decreased breath sounds at the bases Abd: soft, nontender Ext: no edema CBC, BMP 12/21/18 06:30 12/21/18 06:30 Active Medications Acetaminophen (Tylenol -) 650 mg PO Q4H PRN PRN Reason: PAIN OR FEVER Last Admin: 12/19/18 21:10 Dose: 650 mg Albuterol/Ipratropium (Duoneb -) 1 amp NEB RTID [facility] Last Admin: 12/20/18 20:40 Dose: 1 amp Alprazolam (Xanax -) 0.25 mg PO Q8H PRN PRN Reason: ANXIETY Last Admin: 12/21/18 10:24 Dose: 0.25 mg Apixaban (Eliquis -) 5 mg PO BID [facility] Last Admin: 12/21/18 10:24 Dose: 5 mg Ascorbic Acid (Vitamin C -) 500 mg PO DAILY [facility] Last Admin: 12/21/18 10:23 Dose: 500 mg Cholestyramine Resin (Questran Light Packet -) 4 gm PO DAILY [facility] Last Admin: 12/21/18 10:24 Dose: Not Given Ferrous Sulfate (Feosol -) 325 mg PO BID [facility] Last Admin: 12/21/18 10:24 Dose: 325 mg Guaifenesin (Robitussin Dm -) 10 ml PO Q4H PRN PRN Reason: COUGH Hydromorphone HCl (Dilaudid -) 2 mg PO Q5H PRN PRN Reason: PAIN LEVEL 7 - 10 Last Admin: 12/21/18 06:34 Dose: 2 mg Pantoprazole Sodium 40 mg/ (Sodium Chloride) 100 mls @ 200 mls/hr IVPB DAILY [facility] Last Admin: 12/21/18 10:25 Dose: Not Given Sodium Bicarbonate 75 meq/ (Sodium Chloride) 1,075 mls @ 100 mls/hr IV ASDIR [facility] Stop: 12/21/18 22:14 Lactobacillus Acidophilus (Bacid -) 1 tab PO DAILY [facility] Last Admin: 12/21/18 10:25 Dose: Not Given Levothyroxine Sodium (Synthroid -) 75 mcg PO DAILY@0700 [facility] Last Admin: 12/21/18 06:32 Dose: 75 mcg Loperamide HCl (Imodium -) 2 mg PO Q8H PRN PRN Reason: DIARRHEA Last Admin: 12/15/18 16:54 Dose: 2 mg Metoclopramide HCl (Reglan Injection -) 10 mg IVPUSH Q8H [facility] Last Admin: 12/21/18 05:53 Dose: Not Given Montelukast Sodium (Singulair -) 10 mg PO HS [facility] Last Admin: 12/20/18 21:40 Dose: 10 mg Pramipexole Dihydrochloride (Mirapex -) 0.25 mg PO TID [facility] Last Admin: 12/21/18 06:32 Dose: 0.25 mg Topiramate (Topamax -) 100 mg PO DAILY [facility] Last Admin: 12/21/18 10:24 Dose: 100 mg Venlafaxine HCl (Effexor Xr -) 75 mg PO DAILY [facility] Last Admin: 12/21/18 10:24 Dose: 75 mg A/P Chronic Hypoxic and Hypercapneic Respiratory Failure COPD Anion Gap Metabolic Acidosis Paroxysmal Atrial Fibrillation h/o GI bleed HTN DM h/o Uterine Ca Depression Bipolar Disorder - discussed with renal, will give trial of IVF - inhaled bronchodilators as needed - O2 to keep SpO2 >90%
[2018-12-21 11:21] LABS: URINE APPEARANCE CLEAR; URINE BILIRUBIN NEGATIVE (<2.0 mg/dL); URINE COLOR YELLOW; URINE GLUCOSE (UA) NEGATIVE (NEGATIVE); URINE KETONE 2+ (NEGATIVE); URINE LEUK ESTERASE 1+ (NEGATIVE); URINE NITRITE NEGATIVE (NEGATIVE); URINE PROTEIN 2+ (NEGATIVE); URINE UROBILINOGEN NEGATIVE mg/dL (0.2-1.0)
[2018-12-21] MEDS ORDERED: SODIUM BICARBONATE 8.4% - 75 MEQ in SODIUM CHLORIDE 0.45% 1,000 ML IV SCH (11:30)
[2018-12-21 11:42] LABS: EPI CELLS RARE /HPF (FEW); URINE MUCUS RARE
[2018-12-21 11:57] LABS: ANISOCYTOSIS 0; MACROCYTOSIS 0; PLATELET ESTIMATE INCREASED
--- NOTE | 2018-12-21 12:43 | PN ---
Progress Note, Physician History of Present Illness: Awake but confused Supine in bed Afebrile but WBC elevated No fever/ chills Denies dysuria No diarrhea CXR no new infiltrate - Current Medication List Current Medications: Active Medications Acetaminophen (Tylenol -) 650 mg PO Q4H PRN PRN Reason: PAIN OR FEVER Last Admin: 12/19/18 21:10 Dose: 650 mg Albuterol/Ipratropium (Duoneb -) 1 amp NEB RTID [facility] Last Admin: 12/21/18 07:45 Dose: 1 amp Alprazolam (Xanax -) 0.25 mg PO Q8H PRN PRN Reason: ANXIETY Last Admin: 12/21/18 10:24 Dose: 0.25 mg Apixaban (Eliquis -) 5 mg PO BID [facility] Last Admin: 12/21/18 10:24 Dose: 5 mg Ascorbic Acid (Vitamin C -) 500 mg PO DAILY [facility] Last Admin: 12/21/18 10:23 Dose: 500 mg Cholestyramine Resin (Questran Light Packet -) 4 gm PO DAILY [facility] Last Admin: 12/21/18 10:24 Dose: Not Given Ferrous Sulfate (Feosol -) 325 mg PO BID [facility] Last Admin: 12/21/18 10:24 Dose: 325 mg Guaifenesin (Robitussin Dm -) 10 ml PO Q4H PRN PRN Reason: COUGH Hydromorphone HCl (Dilaudid -) 2 mg PO Q5H PRN PRN Reason: PAIN LEVEL 7 - 10 Last Admin: 12/21/18 06:34 Dose: 2 mg Pantoprazole Sodium 40 mg/ (Sodium Chloride) 100 mls @ 200 mls/hr IVPB DAILY [facility] Last Admin: 12/21/18 10:25 Dose: Not Given Sodium Bicarbonate 75 meq/ (Sodium Chloride) 1,075 mls @ 100 mls/hr IV ASDIR [facility] Stop: 12/21/18 22:14 Lactobacillus Acidophilus (Bacid -) 1 tab PO DAILY [facility] Last Admin: 12/21/18 10:25 Dose: Not Given Levothyroxine Sodium (Synthroid -) 75 mcg PO DAILY@0700 [facility] Last Admin: 12/21/18 06:32 Dose: 75 mcg Loperamide HCl (Imodium -) 2 mg PO Q8H PRN PRN Reason: DIARRHEA Last Admin: 12/15/18 16:54 Dose: 2 mg Metoclopramide HCl (Reglan Injection -) 10 mg IVPUSH Q8H [facility] Last Admin: 12/21/18 05:53 Dose: Not Given Montelukast Sodium (Singulair -) 10 mg PO HS [facility] Last Admin: 12/20/18 21:40 Dose: 10 mg Pramipexole Dihydrochloride (Mirapex -) 0.25 mg PO TID [facility] Last Admin: 12/21/18 06:32 Dose: 0.25 mg Topiramate (Topamax -) 100 mg PO DAILY [facility] Last Admin: 12/21/18 10:24 Dose: 100 mg Venlafaxine HCl (Effexor Xr -) 75 mg PO DAILY [facility] Last Admin: 12/21/18 10:24 Dose: 75 mg - Objective Vital Signs: Vital Signs Temperature 98 F 12/21/18 09:00 Pulse Rate 128 H 12/21/18 09:00 Respiratory Rate 22 H 12/21/18 09:00 Blood Pressure 123/88 12/21/18 09:00 O2 Sat by Pulse Oximetry (%) 100 12/21/18 09:00 Constitutional: Yes: No Distress Eyes: Yes: Conjunctiva Clear Cardiovascular: Yes: Regular Rate and Rhythm, S1, S2 Respiratory: Yes: Rhonchi Gastrointestinal: Yes: Normal Bowel Sounds, Soft. No: Tenderness Edema: No Labs: CBC, BMP 12/21/18 06:30 12/21/18 06:30 INR, PTT INR 1.80 (0.83-1.09) H 12/15/18 08:20 Assessment/Plan Leukocytosis ? source Obtain cultures Observe off antibiotics
--- NOTE | 2018-12-21 13:54 | PN ---
Progress Note, Physician History of Present Illness: Pt seen and examined at bedside. She is refusing IV. She has poor intake. - Current Medication List Current Medications: Active Medications Acetaminophen (Tylenol -) 650 mg PO Q4H PRN PRN Reason: PAIN OR FEVER Last Admin: 12/19/18 21:10 Dose: 650 mg Albuterol/Ipratropium (Duoneb -) 1 amp NEB RTID [facility] Last Admin: 12/21/18 07:45 Dose: 1 amp Alprazolam (Xanax -) 0.25 mg PO Q8H PRN PRN Reason: ANXIETY Last Admin: 12/21/18 10:24 Dose: 0.25 mg Apixaban (Eliquis -) 5 mg PO BID [facility] Last Admin: 12/21/18 10:24 Dose: 5 mg Ascorbic Acid (Vitamin C -) 500 mg PO DAILY [facility] Last Admin: 12/21/18 10:23 Dose: 500 mg Cholestyramine Resin (Questran Light Packet -) 4 gm PO DAILY [facility] Last Admin: 12/21/18 10:24 Dose: Not Given Ferrous Sulfate (Feosol -) 325 mg PO BID [facility] Last Admin: 12/21/18 10:24 Dose: 325 mg Guaifenesin (Robitussin Dm -) 10 ml PO Q4H PRN PRN Reason: COUGH Hydromorphone HCl (Dilaudid -) 2 mg PO Q5H PRN PRN Reason: PAIN LEVEL 7 - 10 Last Admin: 12/21/18 06:34 Dose: 2 mg Pantoprazole Sodium 40 mg/ (Sodium Chloride) 100 mls @ 200 mls/hr IVPB DAILY [facility] Last Admin: 12/21/18 10:25 Dose: Not Given Sodium Bicarbonate 75 meq/ (Sodium Chloride) 1,075 mls @ 100 mls/hr IV ASDIR [facility] Stop: 12/21/18 22:14 Lactobacillus Acidophilus (Bacid -) 1 tab PO DAILY [facility] Last Admin: 12/21/18 10:25 Dose: Not Given Levothyroxine Sodium (Synthroid -) 75 mcg PO DAILY@0700 [facility] Last Admin: 12/21/18 06:32 Dose: 75 mcg Loperamide HCl (Imodium -) 2 mg PO Q8H PRN PRN Reason: DIARRHEA Last Admin: 12/15/18 16:54 Dose: 2 mg Metoclopramide HCl (Reglan Injection -) 10 mg IVPUSH Q8H [facility] Last Admin: 12/21/18 05:53 Dose: Not Given Montelukast Sodium (Singulair -) 10 mg PO HS [facility] Last Admin: 12/20/18 21:40 Dose: 10 mg Pramipexole Dihydrochloride (Mirapex -) 0.25 mg PO TID [facility] Last Admin: 12/21/18 06:32 Dose: 0.25 mg Topiramate (Topamax -) 100 mg PO DAILY [facility] Last Admin: 12/21/18 10:24 Dose: 100 mg Venlafaxine HCl (Effexor Xr -) 75 mg PO DAILY [facility] Last Admin: 12/21/18 10:24 Dose: 75 mg - Objective Vital Signs: Vital Signs Temperature 98 F 12/21/18 09:00 Pulse Rate 128 H 12/21/18 09:00 Respiratory Rate 22 H 12/21/18 09:00 Blood Pressure 123/88 12/21/18 09:00 O2 Sat by Pulse Oximetry (%) 100 12/21/18 09:00 Constitutional: Yes: Anxious Neck: Yes: Other (trache) Cardiovascular: Yes: Tachycardia, S1, S2 Respiratory: Yes: Other (has trache) Gastrointestinal: Yes: Soft Genitourinary: Yes: WNL Musculoskeletal: Yes: WNL Edema: No Neurological: Yes: Oriented Psychiatric: Yes: Oriented Labs: CBC, BMP 12/21/18 06:30 12/21/18 06:30 INR, PTT INR 1.80 (0.83-1.09) H 12/15/18 08:20 Assessment/Plan Current Medications Generic Name Dose Route Start Last Admin Trade Name Freq PRN Reason Stop Dose Admin Acetaminophen 650 mg 12/14/18 12:44 12/19/18 21:10 Tylenol - PO 650 mg Q4H PRN Administration PAIN OR FEVER Albuterol/Ipratropium 1 amp 12/20/18 14:00 12/21/18 07:45 Duoneb - NEB 1 amp RTID [facility] Administration Alprazolam 0.25 mg 12/19/18 10:19 12/21/18 10:24 Xanax - PO 0.25 mg Q8H PRN Administration ANXIETY Apixaban 5 mg 12/19/18 10:00 12/21/18 10:24 Eliquis - PO 5 mg BID [facility] Administration Ascorbic Acid 500 mg 12/14/18 10:00 12/21/18 10:23 Vitamin C - PO 500 mg DAILY [facility] Administration Cholestyramine Resin 4 gm 12/16/18 10:00 12/21/18 10:24 Questran Light Packet - PO Not Given DAILY [facility] Ferrous Sulfate 325 mg 12/13/18 22:00 12/21/18 10:24 Feosol - PO 325 mg BID EMMY Administration Guaifenesin 10 ml 12/14/18 12:46 Robitussin Dm - PO Q4H PRN COUGH Hydromorphone HCl 2 mg 12/20/18 17:36 12/21/18 06:34 Dilaudid - PO 2 mg Q5H PRN Administration PAIN LEVEL 7 - 10 Pantoprazole Sodium 40 mg/ 100 mls @ 200 mls/hr 12/15/18 10:00 12/21/18 10:25 Sodium Chloride IVPB Not Given DAILY [facility] Sodium Bicarbonate 75 meq/ 1,075 mls @ 100 mls/hr 12/21/18 11:30 Sodium Chloride IV 12/21/18 22:14 ASDIR [facility] Lactobacillus Acidophilus 1 tab 12/15/18 10:00 12/21/18 10:25 Bacid - PO Not Given DAILY [facility] Levothyroxine Sodium 75 mcg 12/20/18 12:16 12/21/18 06:32 Synthroid - PO 75 mcg DAILY@0700 [facility] Administration Loperamide HCl 2 mg 12/15/18 15:07 12/15/18 16:54 Imodium - PO 2 mg Q8H PRN Administration DIARRHEA Metoclopramide HCl 10 mg 12/14/18 13:15 12/21/18 05:53 Reglan Injection - IVPUSH Not Given Q8H [facility] Montelukast Sodium 10 mg 12/13/18 22:00 12/20/18 21:40 Singulair - PO 10 mg HS EMMY Administration Pramipexole Dihydrochloride 0.25 mg 12/13/18 14:00 12/21/18 06:32 Mirapex - PO 0.25 mg TID EMMY Administration Topiramate 100 mg 12/14/18 10:00 12/21/18 10:24 Topamax - PO 100 mg DAILY [facility] Administration Venlafaxine HCl 75 mg 12/14/18 10:00 12/21/18 10:24 Effexor Xr - PO 75 mg DAILY [facility] Administration Laboratory Tests 12/21/18 06:30 Carbon Dioxide 14 L Acetone, Qual Positive large 3+ H Impression 1. monika 2. hypokalemia 3. resp failure 4. asthma 5. copd 6. htn 7. a-fib 8. metabolic acidosis 9. leukocytosis Plan - pt refusing IV for fluids - pt remains acidotic - wbc worsening - follow urine lytes - will give bicarb - follow repeat labs and cultures Dr Olmedo
--- NOTE | 2018-12-21 16:45 | PN ---
Progress Note, Physician Chief Complaint: Asked to see patient for persistent sinus tachycardia. She is comfortable. No chest pain. CO leg pain. History of Present Illness: 53 year old woman with pmh HTN, DMII, HLD, COPD chronic hypoxic/hypercapneic resp failure s/p trach, Pafib previously not on AC due to GI bleed but has been on eliquis recently, hypothyroid, Bipolar, decubitus ulcer, prior admission for MRSA sepsis now admitted with AMS, fever, lethargy, drainage from trach, sinus tachycardia, presumed sepsis. Pt seen and examined today in nad. awake and alert. difficulty communicating due to trach but able to ask when she will be discharged. denies any current palpitations, chest pain, sob. - Current Medication List Current Medications: Active Medications Acetaminophen (Tylenol -) 650 mg PO Q4H PRN PRN Reason: PAIN OR FEVER Last Admin: 12/19/18 21:10 Dose: 650 mg Albuterol/Ipratropium (Duoneb -) 1 amp NEB RTID [facility] Last Admin: 12/21/18 07:45 Dose: 1 amp Alprazolam (Xanax -) 0.25 mg PO Q8H PRN PRN Reason: ANXIETY Last Admin: 12/21/18 10:24 Dose: 0.25 mg Apixaban (Eliquis -) 5 mg PO BID [facility] Last Admin: 12/21/18 10:24 Dose: 5 mg Ascorbic Acid (Vitamin C -) 500 mg PO DAILY [facility] Last Admin: 12/21/18 10:23 Dose: 500 mg Cholestyramine Resin (Questran Light Packet -) 4 gm PO DAILY [facility] Last Admin: 12/21/18 10:24 Dose: Not Given Ferrous Sulfate (Feosol -) 325 mg PO BID [facility] Last Admin: 12/21/18 10:24 Dose: 325 mg Guaifenesin (Robitussin Dm -) 10 ml PO Q4H PRN PRN Reason: COUGH Hydromorphone HCl (Dilaudid -) 2 mg PO Q5H PRN PRN Reason: PAIN LEVEL 7 - 10 Last Admin: 12/21/18 06:34 Dose: 2 mg Pantoprazole Sodium 40 mg/ (Sodium Chloride) 100 mls @ 200 mls/hr IVPB DAILY [facility] Last Admin: 12/21/18 10:25 Dose: Not Given Sodium Bicarbonate 75 meq/ (Sodium Chloride) 1,075 mls @ 100 mls/hr IV ASDIR [facility] Stop: 12/21/18 22:14 Last Admin: 12/21/18 15:58 Dose: Not Given Lactobacillus Acidophilus (Bacid -) 1 tab PO DAILY [facility] Last Admin: 12/21/18 10:25 Dose: Not Given Levothyroxine Sodium (Synthroid -) 75 mcg PO DAILY@0700 [facility] Last Admin: 12/21/18 06:32 Dose: 75 mcg Loperamide HCl (Imodium -) 2 mg PO Q8H PRN PRN Reason: DIARRHEA Last Admin: 12/15/18 16:54 Dose: 2 mg Metoclopramide HCl (Reglan Injection -) 10 mg IVPUSH Q8H [facility] Last Admin: 12/21/18 13:15 Dose: Not Given Montelukast Sodium (Singulair -) 10 mg PO HS [facility] Last Admin: 12/20/18 21:40 Dose: 10 mg Pramipexole Dihydrochloride (Mirapex -) 0.25 mg PO TID [facility] Last Admin: 12/21/18 15:00 Dose: 0.25 mg Topiramate (Topamax -) 100 mg PO DAILY [facility] Last Admin: 12/21/18 10:24 Dose: 100 mg Venlafaxine HCl (Effexor Xr -) 75 mg PO DAILY [facility] Last Admin: 12/21/18 10:24 Dose: 75 mg - Objective Vital Signs: Vital Signs Temperature 98.3 F 12/21/18 14:25 Pulse Rate 126 H 12/21/18 14:25 Respiratory Rate 22 H 12/21/18 09:00 Blood Pressure 128/105 H 12/21/18 14:25 O2 Sat by Pulse Oximetry (%) 100 12/21/18 09:00 Constitutional: Yes: Cachectic, Thin Eyes: Yes: Conjunctiva Clear, EOM Intact HENT: Yes: Atraumatic, Normocephalic Neck: Yes: Supple, Trachea Midline Cardiovascular: Yes: Tachycardia, S1, S2. No: JVD, Murmur Respiratory: Yes: Regular, Hyperresonant Gastrointestinal: Yes: Normal Bowel Sounds, Soft Edema: No Labs: CBC, BMP 12/21/18 06:30 12/21/18 06:30 INR, PTT INR 1.80 (0.83-1.09) H 12/15/18 08:20 Problem List - Problems (1) Sepsis Code(s): A41.9 - SEPSIS, UNSPECIFIED ORGANISM Qualifiers: Sepsis type: sepsis due to unspecified organism Qualified Code(s): A41.9 - Sepsis, unspecified organism Assessment/Plan 53 year old woman with pmh HTN, DMII, HLD, COPD chronic hypoxic/hypercapneic resp failure s/p trach, Pafib previously not on AC due to GI bleed but has been on eliquis recently, hypothyroid, Bipolar, decubitus ulcer, prior admission for MRSA sepsis admitted with AMS, fever, lethargy, drainage from trach, sinus tachycardia, presumed sepsis. denies any current palpitations, chest pain, sob. Prior cardiology work up: -echo 09/2018 showed normal LV systolic function, mild valvular abnl, no sig change from prior echos - stress test 2015 no ischemia A/P ECG today sinus tachycardia without ST changes. Sinus tachy is reactive and related to possible sepsis, acidosis and illness. Would not advise using AV dewayne blockers to slow down HR. Doing so will likely cause hypotension. Continue to treat underlying causes for sinus tachycardia. Will see as needed.
--- NOTE | 2018-12-21 16:49 | EKG ---
Test Reason : Blood Pressure : / mmHG Vent. Rate : 133 BPM Atrial Rate : 133 BPM P-R Int : 122 ms QRS Dur : 078 ms QT Int : 302 ms P-R-T Axes : 021 000 063 degrees QTc Int : 449 ms SINUS TACHYCARDIA POSSIBLE LEFT ATRIAL ENLARGEMENT NONSPECIFIC ST ABNORMALITY ABNORMAL ECG WHEN COMPARED WITH ECG OF 12-DEC-2018 14:36, NONSPECIFIC T WAVE ABNORMALITY NO LONGER EVIDENT IN INFERIOR LEADS Confirmed by Ilir Hernandes ([id number]) on 12/21/2018 4:49:34 PM Referred By: Confirmed By:Ilir Hernandes
[2018-12-21] MEDS: MONTELUKAST NA 10 MG TABLET PO SCH (21:56)
[2018-12-21] MEDS: SODIUM BICARBONATE 650 MG TABLET PO SCH (23:28)
[2018-12-21] MEDS: SODIUM CHLORIDE 0.45% 1,000 ML with SODIUM BICARBONATE 8.4% - 75 MEQ IV SCH (23:28)
[2018-12-21] MEDS: ACETAMINOPHEN 325 MG TABLET (FP) PO PRN (23:35)
[2018-12-22] MEDS: HYDROmorphone HCL 2 MG TABLET PO PRN ×2 (01:40→10:40)
[2018-12-22 06:16] LABS: HBSAG SCREEN Negative (Negative); HEP B CORE AB, TOT Negative (Negative)
[2018-12-22] MEDS: METOCLOPRAMIDE HCL INJECTION 10 MG/2 ML VIAL IVPUSH SCH ×3 (06:21→22:27)
[2018-12-22] MEDS: PRAMIPEXOLE DIHYDROCHLORIDE 0.25 MG TABLET PO SCH ×3 (06:22→22:27)
[2018-12-22] MEDS: LEVOTHYROXINE NA 75 MCG TABLET (FP) PO SCH (06:22)
[2018-12-22] MEDS: ALPRAZolam 0.25 MG TABLET PO PRN ×3 (06:22→22:27)
[2018-12-22] MEDS ORDERED: PT OWN MED DRAWER 7, Y5N ONE ×3 (06:34→23:03)
[2018-12-22] MEDS: ALBUTEROL SO4 2.5/IPRATROPIUM 0.5 INH SOL 3 ML VIAL.NEB. NEB SCH ×3 (07:45→19:58)
[2018-12-22 08:29] LABS: BASO % 0.9 % (0-2.0); EOS % 3.5 % (0-4.5); HEMOGLOBIN 12.4 GM/dL (10.7-15.3); LYMPH % 20.2 % (8-40); MCH 31.9 pg (25.7-33.7); MCHC 33.4 g/dl (32.0-36.0); MEAN CELL VOLUME 95.6 fl (80-96); MONO % 4.9 % (3.8-10.2); NEUT % 70.5 % (42.8-82.8); PLATELET COUNT 772 K/MM3 (134-434); RBC 3.88 M/mm3 (3.60-5.2); RDW 19.4 % (11.6-15.6); WHITE BLOOD COUNT 15.6 K/mm3 (4.0-10.0)
--- NOTE | 2018-12-22 08:43 | PN ---
Progress Note, Physician - Current Medication List Current Medications: Active Medications Acetaminophen (Tylenol -) 650 mg PO Q4H PRN PRN Reason: PAIN OR FEVER Last Admin: 12/19/18 21:10 Dose: 650 mg Albuterol/Ipratropium (Duoneb -) 1 amp NEB RTID [facility] Last Admin: 12/21/18 19:00 Dose: 1 amp Alprazolam (Xanax -) 0.25 mg PO Q8H PRN PRN Reason: ANXIETY Last Admin: 12/22/18 06:22 Dose: 0.25 mg Apixaban (Eliquis -) 5 mg PO BID [facility] Last Admin: 12/21/18 21:56 Dose: 5 mg Ascorbic Acid (Vitamin C -) 500 mg PO DAILY [facility] Last Admin: 12/21/18 10:23 Dose: 500 mg Cholestyramine Resin (Questran Light Packet -) 4 gm PO DAILY [facility] Last Admin: 12/21/18 10:24 Dose: Not Given Ferrous Sulfate (Feosol -) 325 mg PO BID [facility] Last Admin: 12/21/18 21:56 Dose: 325 mg Guaifenesin (Robitussin Dm -) 10 ml PO Q4H PRN PRN Reason: COUGH Hydromorphone HCl (Dilaudid -) 2 mg PO Q5H PRN PRN Reason: PAIN LEVEL 7 - 10 Last Admin: 12/22/18 01:40 Dose: 2 mg Pantoprazole Sodium 40 mg/ (Sodium Chloride) 100 mls @ 200 mls/hr IVPB DAILY [facility] Last Admin: 12/21/18 10:25 Dose: Not Given Sodium Bicarbonate 75 meq/ (Sodium Chloride) 1,075 mls @ 100 mls/hr IV ASDIR [facility] Last Admin: 12/21/18 23:28 Dose: Not Given Lactobacillus Acidophilus (Bacid -) 1 tab PO DAILY [facility] Last Admin: 12/21/18 10:25 Dose: Not Given Levothyroxine Sodium (Synthroid -) 75 mcg PO DAILY@0700 [facility] Last Admin: 12/22/18 06:22 Dose: 75 mcg Loperamide HCl (Imodium -) 2 mg PO Q8H PRN PRN Reason: DIARRHEA Last Admin: 12/15/18 16:54 Dose: 2 mg Metoclopramide HCl (Reglan Injection -) 10 mg IVPUSH Q8H [facility] Last Admin: 12/22/18 06:21 Dose: Not Given Montelukast Sodium (Singulair -) 10 mg PO HS [facility] Last Admin: 12/21/18 21:56 Dose: 10 mg Pramipexole Dihydrochloride (Mirapex -) 0.25 mg PO TID [facility] Last Admin: 12/22/18 06:22 Dose: 0.25 mg Sodium Bicarbonate (Sodium Bicarbonate -) 650 mg PO BID [facility] Last Admin: 12/21/18 23:28 Dose: 650 mg Topiramate (Topamax -) 100 mg PO DAILY [facility] Last Admin: 12/21/18 10:24 Dose: 100 mg Venlafaxine HCl (Effexor Xr -) 75 mg PO DAILY [facility] Last Admin: 12/21/18 10:24 Dose: 75 mg - Objective Vital Signs: Vital Signs Temperature 98.6 F 12/22/18 06:06 Pulse Rate 126 H 12/22/18 06:06 Respiratory Rate 22 H 12/22/18 06:06 Blood Pressure 126/70 12/22/18 06:06 O2 Sat by Pulse Oximetry (%) 99 12/22/18 00:40 Cardiovascular: Yes: Regular Rate and Rhythm Respiratory: Yes: Regular, CTA Bilaterally, Other (trach) Gastrointestinal: Yes: Normal Bowel Sounds, Soft Labs: CBC, BMP 12/22/18 08:10 INR, PTT INR 1.80 (0.83-1.09) H 12/15/18 08:20 Assessment/Plan - Problems (1) Sepsis Assessment/Plan: iv abx- completed uti morganella observe off abx no fever high wbc--Repeat cultures--id follow up--discussed--will do ct Code(s): A41.9 - SEPSIS, UNSPECIFIED ORGANISM Qualifiers: Sepsis type: sepsis due to unspecified organism Qualified Code(s): A41.9 - Sepsis, unspecified organism (2) Anemia Assessment/Plan: repeat cbc now is better check stool for occult blood noted GI consult appreciate iron panel noted Code(s): D64.9 - ANEMIA, UNSPECIFIED (3) Back pain Assessment/Plan: diluadid prn Code(s): M54.9 - DORSALGIA, UNSPECIFIED (4) Hypothyroid Assessment/Plan: tsh elevated 6.01 synthroid 50mcg to 75 mcg Code(s): E03.9 - HYPOTHYROIDISM, UNSPECIFIED Qualifiers: (5) Restless leg syndrome Assessment/Plan: mirapex Code(s): G25.81 - RESTLESS LEGS SYNDROME (6) Afib Assessment/Plan: eliquis Code(s): I48.91 - UNSPECIFIED ATRIAL FIBRILLATION (7) Anxiety Assessment/Plan: xanax prn Code(s): F41.9 - ANXIETY DISORDER, UNSPECIFIED (8) Respiratory failure Assessment/Plan: chronic resp failure s/p trach collar Code(s): J96.90 - RESPIRATORY FAILURE, UNSP, UNSP W HYPOXIA OR HYPERCAPNIA
[2018-12-22 09:39] LABS: ALBUMIN 2.3 g/dl (3.4-5.0); ALK PHOS 243 U/L (45-117); ANION GAP 19 MMOL/L (8-16); BLOOD UREA NITROGEN 7 mg/dL (7-18); CALCIUM 8.2 mg/dL (8.5-10.1); CHLORIDE 98 mmol/L (98-107); CO2 16 mmol/L (21-32); CREATININE 0.8 mg/dL (0.55-1.3); GLUCOSE,RANDOM 70 mg/dL (74-106); POTASSIUM 4.3 mmol/L (3.5-5.1); SGOT/AST 54 U/L (15-37); SGPT/ALT 35 U/L (13-61); SODIUM 133 mmol/L (136-145); TOT PROT 7.4 g/dl (6.4-8.2)
[2018-12-22] MEDS: CHOLESTYRAMINE/ASPARTAME 4 GM PACKET PO SCH (10:30)
[2018-12-22] MEDS: PANTOPRAZOLE 40 MG TABLET (FP) PO SCH (10:41)
[2018-12-22] MEDS: TOPIRAMATE 100 MG TABLET PO SCH (10:41)
[2018-12-22] MEDS: ASCORBIC ACID 500 MG TABLET (FP) PO SCH (10:41)
[2018-12-22] MEDS: VENLAFAXINE HCL 75 MG E.R. CAPSULES (FP) PO SCH (10:41)
[2018-12-22] MEDS: FERROUS SO4 325 MG TABLET (FP) PO SCH ×2 (10:41→22:26)
[2018-12-22] MEDS: APIXABAN 5 MG TABLET PO SCH ×2 (10:41→22:27)
[2018-12-22] MEDS: SODIUM BICARBONATE 650 MG TABLET PO SCH ×3 (10:41→22:27)
[2018-12-22] MEDS: LACTOBACILLUS ACIDOPHILUS 1 TABLET PO SCH (10:46)
[2018-12-22] MEDS ORDERED: CEFTRIAXONE 2 GM in DEXTROSE 5%-WATER 100 ML IVPB ONE (12:00)
--- NOTE | 2018-12-22 13:27 | PN ---
Progress Note, Physician History of Present Illness: pulmonary alert,feeling better,-resp distress - Current Medication List Current Medications: Active Medications Acetaminophen (Tylenol -) 650 mg PO Q4H PRN PRN Reason: PAIN OR FEVER Last Admin: 12/19/18 21:10 Dose: 650 mg Albuterol/Ipratropium (Duoneb -) 1 amp NEB RTID [facility] Last Admin: 12/22/18 07:45 Dose: 1 amp Alprazolam (Xanax -) 0.25 mg PO Q8H PRN PRN Reason: ANXIETY Last Admin: 12/22/18 06:22 Dose: 0.25 mg Apixaban (Eliquis -) 5 mg PO BID [facility] Last Admin: 12/22/18 10:41 Dose: 5 mg Ascorbic Acid (Vitamin C -) 500 mg PO DAILY [facility] Last Admin: 12/22/18 10:41 Dose: 500 mg Cholestyramine Resin (Questran Light Packet -) 4 gm PO DAILY [facility] Last Admin: 12/22/18 10:30 Dose: Not Given Ferrous Sulfate (Feosol -) 325 mg PO BID [facility] Last Admin: 12/22/18 10:41 Dose: 325 mg Guaifenesin (Robitussin Dm -) 10 ml PO Q4H PRN PRN Reason: COUGH Hydromorphone HCl (Dilaudid -) 2 mg PO Q5H PRN PRN Reason: PAIN LEVEL 7 - 10 Last Admin: 12/22/18 10:40 Dose: 2 mg Sodium Bicarbonate 75 meq/ (Sodium Chloride) 1,075 mls @ 100 mls/hr IV ASDIR [facility] Last Admin: 12/21/18 23:28 Dose: Not Given Lactobacillus Acidophilus (Bacid -) 1 tab PO DAILY [facility] Last Admin: 12/22/18 10:46 Dose: Not Given Levothyroxine Sodium (Synthroid -) 75 mcg PO DAILY@0700 [facility] Last Admin: 12/22/18 06:22 Dose: 75 mcg Loperamide HCl (Imodium -) 2 mg PO Q8H PRN PRN Reason: DIARRHEA Last Admin: 12/15/18 16:54 Dose: 2 mg Metoclopramide HCl (Reglan Injection -) 10 mg IVPUSH Q8H [facility] Last Admin: 12/22/18 06:21 Dose: Not Given Montelukast Sodium (Singulair -) 10 mg PO HS [facility] Last Admin: 12/21/18 21:56 Dose: 10 mg Pantoprazole Sodium (Protonix -) 40 mg PO DAILY [facility] Last Admin: 12/22/18 10:41 Dose: 40 mg Pramipexole Dihydrochloride (Mirapex -) 0.25 mg PO TID [facility] Last Admin: 12/22/18 06:22 Dose: 0.25 mg Sodium Bicarbonate (Sodium Bicarbonate -) 650 mg PO BID [facility] Last Admin: 12/22/18 10:41 Dose: 650 mg Topiramate (Topamax -) 100 mg PO DAILY [facility] Last Admin: 12/22/18 10:41 Dose: 100 mg Venlafaxine HCl (Effexor Xr -) 75 mg PO DAILY [facility] Last Admin: 12/22/18 10:41 Dose: 75 mg - Objective Vital Signs: Vital Signs Temperature 98.1 F 12/22/18 09:09 Pulse Rate 139 H 12/22/18 09:09 Respiratory Rate 20 12/22/18 09:09 Blood Pressure 131/92 12/22/18 09:09 O2 Sat by Pulse Oximetry (%) 99 12/22/18 00:40 Constitutional: Yes: Well Nourished, Calm Eyes: Yes: WNL HENT: Yes: WNL Neck: Yes: Supple (trach) Cardiovascular: Yes: Pulse Irregular, S1, S2 Respiratory: Yes: Wheezes (few scattered wheezes) Gastrointestinal: Yes: Normal Bowel Sounds, Soft Extremities: Yes: WNL Edema: No Labs: CBC, BMP 12/22/18 08:10 12/22/18 08:10 INR, PTT INR 1.80 (0.83-1.09) H 12/15/18 08:20 Problem List - Problems (1) Sepsis Code(s): A41.9 - SEPSIS, UNSPECIFIED ORGANISM Qualifiers: Sepsis type: sepsis due to unspecified organism Qualified Code(s): A41.9 - Sepsis, unspecified organism (2) Abscess Code(s): L02.91 - CUTANEOUS ABSCESS, UNSPECIFIED (3) Acute and chronic respiratory failure with hypoxia Code(s): J96.21 - ACUTE AND CHRONIC RESPIRATORY FAILURE WITH HYPOXIA (4) Acute metabolic encephalopathy Code(s): G93.41 - METABOLIC ENCEPHALOPATHY (5) Acute on chronic respiratory failure with hypoxia and hypercapnia Code(s): J96.21 - ACUTE AND CHRONIC RESPIRATORY FAILURE WITH HYPOXIA; J96.22 - ACUTE AND CHRONIC RESPIRATORY FAILURE WITH HYPERCAPNIA (6) Anemia Code(s): D64.9 - ANEMIA, UNSPECIFIED (7) Diabetes Code(s): E11.9 - TYPE 2 DIABETES MELLITUS WITHOUT COMPLICATIONS (8) Tracheostomy in place Code(s): Z93.0 - TRACHEOSTOMY STATUS (9) Afib Code(s): I48.91 - UNSPECIFIED ATRIAL FIBRILLATION (10) Anxiety Code(s): F41.9 - ANXIETY DISORDER, UNSPECIFIED (11) GERD (gastroesophageal reflux disease) Code(s): K21.9 - GASTRO-ESOPHAGEAL REFLUX DISEASE WITHOUT ESOPHAGITIS (12) HTN (hypertension) Code(s): I10 - ESSENTIAL (PRIMARY) HYPERTENSION Qualifiers: (13) Paroxysmal atrial fibrillation Code(s): I48.0 - PAROXYSMAL ATRIAL FIBRILLATION Assessment/Plan Assessment/Plan ALTERED MENTAL STATUS IMPROVED FEVER RESOLVED CHRONIC HYPOXEMIC/HYPERCAPNEIC RESP FAILURE WITH TRACH ON COPD H/O GI BLEED NOW WITH DECREASED HGB 11.O TO 7.8GMS ANTICOAGULATION DUE TO AF NOW WITH SINUS TACH DECUBITUS DEPRESSION/BIPOLAR RENAL STAENTS UTERINE CA DM/HYPOTHYROID HTN AFIB RESP STATUS STABLE NO RADIOGRAPHIC EVIDENCE TO SUGGEST PNEUMONIA O2 MONITOR LYTES,H+H MONITOR INR TRACHEAL SUCTIONING INHALED BRONCHODILATORS NORMAL TRANSFUSION THRESHOLD AVOID OVER SEDATION AC DR RUFFIN
--- NOTE | 2018-12-22 13:41 | PN ---
Progress Note, Physician History of Present Illness: Pt seen and examined at bedside. She is awake and denies shortness of breath. She has poor appetite. - Current Medication List Current Medications: Active Medications Acetaminophen (Tylenol -) 650 mg PO Q4H PRN PRN Reason: PAIN OR FEVER Last Admin: 12/19/18 21:10 Dose: 650 mg Albuterol/Ipratropium (Duoneb -) 1 amp NEB RTID [facility] Last Admin: 12/22/18 07:45 Dose: 1 amp Alprazolam (Xanax -) 0.25 mg PO Q8H PRN PRN Reason: ANXIETY Last Admin: 12/22/18 06:22 Dose: 0.25 mg Apixaban (Eliquis -) 5 mg PO BID [facility] Last Admin: 12/22/18 10:41 Dose: 5 mg Ascorbic Acid (Vitamin C -) 500 mg PO DAILY [facility] Last Admin: 12/22/18 10:41 Dose: 500 mg Cholestyramine Resin (Questran Light Packet -) 4 gm PO DAILY [facility] Last Admin: 12/22/18 10:30 Dose: Not Given Ferrous Sulfate (Feosol -) 325 mg PO BID [facility] Last Admin: 12/22/18 10:41 Dose: 325 mg Guaifenesin (Robitussin Dm -) 10 ml PO Q4H PRN PRN Reason: COUGH Hydromorphone HCl (Dilaudid -) 2 mg PO Q5H PRN PRN Reason: PAIN LEVEL 7 - 10 Last Admin: 12/22/18 10:40 Dose: 2 mg Sodium Bicarbonate 75 meq/ (Sodium Chloride) 1,075 mls @ 100 mls/hr IV ASDIR [facility] Last Admin: 12/21/18 23:28 Dose: Not Given Lactobacillus Acidophilus (Bacid -) 1 tab PO DAILY [facility] Last Admin: 12/22/18 10:46 Dose: Not Given Levothyroxine Sodium (Synthroid -) 75 mcg PO DAILY@0700 [facility] Last Admin: 12/22/18 06:22 Dose: 75 mcg Loperamide HCl (Imodium -) 2 mg PO Q8H PRN PRN Reason: DIARRHEA Last Admin: 12/15/18 16:54 Dose: 2 mg Metoclopramide HCl (Reglan Injection -) 10 mg IVPUSH Q8H [facility] Last Admin: 12/22/18 06:21 Dose: Not Given Montelukast Sodium (Singulair -) 10 mg PO HS [facility] Last Admin: 12/21/18 21:56 Dose: 10 mg Pantoprazole Sodium (Protonix -) 40 mg PO DAILY [facility] Last Admin: 12/22/18 10:41 Dose: 40 mg Pramipexole Dihydrochloride (Mirapex -) 0.25 mg PO TID [facility] Last Admin: 12/22/18 06:22 Dose: 0.25 mg Sodium Bicarbonate (Sodium Bicarbonate -) 650 mg PO TID [facility] Topiramate (Topamax -) 100 mg PO DAILY [facility] Last Admin: 12/22/18 10:41 Dose: 100 mg Venlafaxine HCl (Effexor Xr -) 75 mg PO DAILY [facility] Last Admin: 12/22/18 10:41 Dose: 75 mg - Objective Vital Signs: Vital Signs Temperature 98.1 F 12/22/18 09:09 Pulse Rate 139 H 12/22/18 09:09 Respiratory Rate 20 12/22/18 09:09 Blood Pressure 131/92 12/22/18 09:09 O2 Sat by Pulse Oximetry (%) 99 12/22/18 00:40 Constitutional: Yes: Calm Eyes: Yes: Conjunctiva Clear Neck: Yes: Other (trache) Cardiovascular: Yes: S1, S2 Respiratory: Yes: CTA Bilaterally, Other (trache color) Genitourinary: Yes: WNL Musculoskeletal: Yes: WNL Edema: No Integumentary: Yes: Tattoos Labs: CBC, BMP 12/22/18 08:10 12/22/18 08:10 INR, PTT INR 1.80 (0.83-1.09) H 12/15/18 08:20 Assessment/Plan Current Medications Generic Name Dose Route Start Last Admin Trade Name Freq PRN Reason Stop Dose Admin Acetaminophen 650 mg 12/14/18 12:44 12/19/18 21:10 Tylenol - PO 650 mg Q4H PRN Administration PAIN OR FEVER Albuterol/Ipratropium 1 amp 12/20/18 14:00 12/22/18 07:45 Duoneb - NEB 1 amp RTID [facility] Administration Alprazolam 0.25 mg 12/19/18 10:19 12/22/18 06:22 Xanax - PO 0.25 mg Q8H PRN Administration ANXIETY Apixaban 5 mg 12/19/18 10:00 12/22/18 10:41 Eliquis - PO 5 mg BID [facility] Administration Ascorbic Acid 500 mg 12/14/18 10:00 12/22/18 10:41 Vitamin C - PO 500 mg DAILY [facility] Administration Cholestyramine Resin 4 gm 12/16/18 10:00 12/22/18 10:30 Questran Light Packet - PO Not Given DAILY [facility] Ferrous Sulfate 325 mg 12/13/18 22:00 12/22/18 10:41 Feosol - PO 325 mg BID [facility] Administration Guaifenesin 10 ml 12/14/18 12:46 Robitussin Dm - PO Q4H PRN COUGH Hydromorphone HCl 2 mg 12/20/18 17:36 12/22/18 10:40 Dilaudid - PO 2 mg Q5H PRN Administration PAIN LEVEL 7 - 10 Sodium Bicarbonate 75 meq/ 1,075 mls @ 100 mls/hr 12/21/18 23:00 12/21/18 23: 28 Sodium Chloride IV Not Given ASDIR [facility] Lactobacillus Acidophilus 1 tab 12/15/18 10:00 12/22/18 10:46 Bacid - PO Not Given DAILY [facility] Levothyroxine Sodium 75 mcg 12/20/18 12:16 12/22/18 06:22 Synthroid - PO 75 mcg DAILY@0700 [facility] Administration Loperamide HCl 2 mg 12/15/18 15:07 12/15/18 16:54 Imodium - PO 2 mg Q8H PRN Administration DIARRHEA Metoclopramide HCl 10 mg 12/14/18 13:15 12/22/18 06:21 Reglan Injection - IVPUSH Not Given Q8H [facility] Montelukast Sodium 10 mg 12/13/18 22:00 12/21/18 21:56 Singulair - PO 10 mg HS [facility] Administration Pantoprazole Sodium 40 mg 12/22/18 10:00 12/22/18 10:41 Protonix - PO 40 mg DAILY [facility] Administration Pramipexole Dihydrochloride 0.25 mg 12/13/18 14:00 12/22/18 06:22 Mirapex - PO 0.25 mg TID [facility] Administration Sodium Bicarbonate 650 mg 12/22/18 14:00 Sodium Bicarbonate - PO TID [facility] Topiramate 100 mg 12/14/18 10:00 12/22/18 10:41 Topamax - PO 100 mg DAILY [facility] Administration Venlafaxine HCl 75 mg 12/14/18 10:00 12/22/18 10:41 Effexor Xr - PO 75 mg DAILY [facility] Administration Impression 1. monika 2. hypokalemia 3. resp failure 4. asthma 5. copd 6. htn 7. a-fib 8. metabolic acidosis 9. leukocytosis Plan - pt still refusing IV - cont po bicarb - potassium improved - follow repeat cultures Dr Olmedo
[2018-12-22] MEDS: MONTELUKAST NA 10 MG TABLET PO SCH (22:26)
[2018-12-22] MEDS: ACETAMINOPHEN 325 MG TABLET (FP) PO PRN (22:26)
[2018-12-22] MEDS: SODIUM CHLORIDE 0.45% 1,000 ML with SODIUM BICARBONATE 8.4% - 75 MEQ IV SCH (22:28)
[2018-12-22 23:53] VITALS: PULSE 136
[2018-12-23 04:16] LABS: SERUM IRON SATURATION 40 % (15-55); TOTAL IRON BINDING CAPACITY 136 ug/dL (250-450); UIBC 82 ug/dL (131-425)
[2018-12-23] MEDS: METOCLOPRAMIDE HCL INJECTION 10 MG/2 ML VIAL IVPUSH SCH ×2 (06:06→14:37)
[2018-12-23] MEDS: ALPRAZolam 0.25 MG TABLET PO PRN ×2 (06:07→14:39)
[2018-12-23] MEDS: PRAMIPEXOLE DIHYDROCHLORIDE 0.25 MG TABLET PO SCH ×2 (06:07→14:15)
[2018-12-23] MEDS: LEVOTHYROXINE NA 75 MCG TABLET (FP) PO SCH (06:07)
[2018-12-23] MEDS: SODIUM BICARBONATE 650 MG TABLET PO SCH ×2 (06:07→14:15)
[2018-12-23] MEDS ORDERED: PT OWN MED DRAWER 7, Y5N ONE ×4 (06:24→14:26)
[2018-12-23 06:34] VITALS: BP 111/61
[2018-12-23] MEDS: ALBUTEROL SO4 2.5/IPRATROPIUM 0.5 INH SOL 3 ML VIAL.NEB. NEB SCH ×2 (08:05→14:42)
[2018-12-23] MEDS: TOPIRAMATE 100 MG TABLET PO SCH (10:13)
[2018-12-23] MEDS: PANTOPRAZOLE 40 MG TABLET (FP) PO SCH (10:13)
[2018-12-23] MEDS: VENLAFAXINE HCL 75 MG E.R. CAPSULES (FP) PO SCH (10:13)
[2018-12-23] MEDS: ASCORBIC ACID 500 MG TABLET (FP) PO SCH (10:13)
[2018-12-23] MEDS: APIXABAN 5 MG TABLET PO SCH (10:13)
[2018-12-23] MEDS: FERROUS SO4 325 MG TABLET (FP) PO SCH (10:13)
[2018-12-23] MEDS: CHOLESTYRAMINE/ASPARTAME 4 GM PACKET PO SCH (10:13)
[2018-12-23] MEDS: LACTOBACILLUS ACIDOPHILUS 1 TABLET PO SCH (10:14)
--- NOTE | 2018-12-23 11:08 | PN ---
Progress Note (short form) - Note Progress Note: PULMONARY Refusing IV. Intermittent shortness of breath. Vital Signs Period Temp Pulse Resp BP Sys/Dan Pulse Ox Last 24 Hr 97.8 F-98.5 F 136-140 20 111-126/60-65 97 Gen: mildly tachypneic at rest, anxious Heart: tachycardic, regular Lung: decreased breath sounds at the bases Abd: soft, nontender Ext: no edema CBC, BMP 12/22/18 08:10 12/22/18 08:10 Active Medications Acetaminophen (Tylenol -) 650 mg PO Q4H PRN PRN Reason: PAIN OR FEVER Last Admin: 12/22/18 22:26 Dose: 650 mg Albuterol/Ipratropium (Duoneb -) 1 amp NEB RTID [facility] Last Admin: 12/23/18 08:05 Dose: 1 amp Alprazolam (Xanax -) 0.25 mg PO Q8H PRN PRN Reason: ANXIETY Last Admin: 12/23/18 06:07 Dose: 0.25 mg Apixaban (Eliquis -) 5 mg PO BID [facility] Last Admin: 12/23/18 10:13 Dose: 5 mg Ascorbic Acid (Vitamin C -) 500 mg PO DAILY [facility] Last Admin: 12/23/18 10:13 Dose: 500 mg Cholestyramine Resin (Questran Light Packet -) 4 gm PO DAILY [facility] Last Admin: 12/23/18 10:13 Dose: 4 gm Ferrous Sulfate (Feosol -) 325 mg PO BID [facility] Last Admin: 12/23/18 10:13 Dose: 325 mg Guaifenesin (Robitussin Dm -) 10 ml PO Q4H PRN PRN Reason: COUGH Hydromorphone HCl (Dilaudid -) 2 mg PO Q5H PRN PRN Reason: PAIN LEVEL 7 - 10 Last Admin: 12/22/18 10:40 Dose: 2 mg Sodium Bicarbonate 75 meq/ (Sodium Chloride) 1,075 mls @ 100 mls/hr IV ASDIR [facility] Last Admin: 12/22/18 22:28 Dose: Not Given Lactobacillus Acidophilus (Bacid -) 1 tab PO DAILY [facility] Last Admin: 12/23/18 10:14 Dose: Not Given Levofloxacin (Levaquin -) 500 mg PO DAILY@0600 [facility] Last Admin: 12/23/18 06:07 Dose: 500 mg Levothyroxine Sodium (Synthroid -) 75 mcg PO DAILY@0700 [facility] Last Admin: 12/23/18 06:07 Dose: 75 mcg Loperamide HCl (Imodium -) 2 mg PO Q8H PRN PRN Reason: DIARRHEA Last Admin: 12/15/18 16:54 Dose: 2 mg Metoclopramide HCl (Reglan Injection -) 10 mg IVPUSH Q8H [facility] Last Admin: 12/23/18 06:06 Dose: Not Given Montelukast Sodium (Singulair -) 10 mg PO HS [facility] Last Admin: 12/22/18 22:26 Dose: 10 mg Pantoprazole Sodium (Protonix -) 40 mg PO DAILY [facility] Last Admin: 12/23/18 10:13 Dose: 40 mg Pramipexole Dihydrochloride (Mirapex -) 0.25 mg PO TID [facility] Last Admin: 12/23/18 06:07 Dose: 0.25 mg Sodium Bicarbonate (Sodium Bicarbonate -) 650 mg PO TID [facility] Last Admin: 12/23/18 06:07 Dose: 650 mg Topiramate (Topamax -) 100 mg PO DAILY [facility] Last Admin: 12/23/18 10:13 Dose: 100 mg Venlafaxine HCl (Effexor Xr -) 75 mg PO DAILY [facility] Last Admin: 12/23/18 10:13 Dose: 75 mg A/P Chronic Hypoxic and Hypercapneic Respiratory Failure COPD Anion Gap Metabolic Acidosis Paroxysmal Atrial Fibrillation h/o GI bleed HTN DM h/o Uterine Ca Depression Bipolar Disorder - IVF if pt allows - monitor BMP - inhaled bronchodilators as needed - O2 to keep SpO2 >90%
--- NOTE | 2018-12-23 12:17 | PN ---
Progress Note, Physician Chief Complaint: patient seen and examined wants to go back to [place] no fever - Current Medication List Current Medications: Active Medications Acetaminophen (Tylenol -) 650 mg PO Q4H PRN PRN Reason: PAIN OR FEVER Last Admin: 12/22/18 22:26 Dose: 650 mg Albuterol/Ipratropium (Duoneb -) 1 amp NEB RTID [facility] Last Admin: 12/23/18 08:05 Dose: 1 amp Alprazolam (Xanax -) 0.25 mg PO Q8H PRN PRN Reason: ANXIETY Last Admin: 12/23/18 06:07 Dose: 0.25 mg Apixaban (Eliquis -) 5 mg PO BID [facility] Last Admin: 12/23/18 10:13 Dose: 5 mg Ascorbic Acid (Vitamin C -) 500 mg PO DAILY [facility] Last Admin: 12/23/18 10:13 Dose: 500 mg Cholestyramine Resin (Questran Light Packet -) 4 gm PO DAILY [facility] Last Admin: 12/23/18 10:13 Dose: 4 gm Ferrous Sulfate (Feosol -) 325 mg PO BID [facility] Last Admin: 12/23/18 10:13 Dose: 325 mg Guaifenesin (Robitussin Dm -) 10 ml PO Q4H PRN PRN Reason: COUGH Hydromorphone HCl (Dilaudid -) 2 mg PO Q5H PRN PRN Reason: PAIN LEVEL 7 - 10 Last Admin: 12/22/18 10:40 Dose: 2 mg Sodium Bicarbonate 75 meq/ (Sodium Chloride) 1,075 mls @ 100 mls/hr IV ASDIR [facility] Last Admin: 12/22/18 22:28 Dose: Not Given Lactobacillus Acidophilus (Bacid -) 1 tab PO DAILY [facility] Last Admin: 12/23/18 10:14 Dose: Not Given Levofloxacin (Levaquin -) 500 mg PO DAILY@0600 [facility] Last Admin: 12/23/18 06:07 Dose: 500 mg Levothyroxine Sodium (Synthroid -) 75 mcg PO DAILY@0700 [facility] Last Admin: 12/23/18 06:07 Dose: 75 mcg Loperamide HCl (Imodium -) 2 mg PO Q8H PRN PRN Reason: DIARRHEA Last Admin: 12/15/18 16:54 Dose: 2 mg Metoclopramide HCl (Reglan Injection -) 10 mg IVPUSH Q8H [facility] Last Admin: 12/23/18 06:06 Dose: Not Given Montelukast Sodium (Singulair -) 10 mg PO HS [facility] Last Admin: 12/22/18 22:26 Dose: 10 mg Pantoprazole Sodium (Protonix -) 40 mg PO DAILY [facility] Last Admin: 12/23/18 10:13 Dose: 40 mg Pramipexole Dihydrochloride (Mirapex -) 0.25 mg PO TID [facility] Last Admin: 12/23/18 06:07 Dose: 0.25 mg Sodium Bicarbonate (Sodium Bicarbonate -) 650 mg PO TID [facility] Last Admin: 12/23/18 06:07 Dose: 650 mg Topiramate (Topamax -) 100 mg PO DAILY [facility] Last Admin: 12/23/18 10:13 Dose: 100 mg Venlafaxine HCl (Effexor Xr -) 75 mg PO DAILY [facility] Last Admin: 12/23/18 10:13 Dose: 75 mg - Objective Vital Signs: Vital Signs Temperature 98.5 F 12/23/18 06:00 Pulse Rate 136 H 12/23/18 06:00 Respiratory Rate 20 12/22/18 23:49 Blood Pressure 111/61 12/23/18 06:00 O2 Sat by Pulse Oximetry (%) 97 12/22/18 21:00 Constitutional: Yes: Calm Neck: Yes: Other (trach collar) Cardiovascular: Yes: Regular Rate and Rhythm, S1, S2 Respiratory: Yes: Diminished Gastrointestinal: Yes: Normal Bowel Sounds, Soft Edema: No Neurological: Yes: Alert, Oriented Labs: CBC, BMP 12/22/18 08:10 12/22/18 08:10 INR, PTT INR 1.80 (0.83-1.09) H 12/15/18 08:20 Problem List - Problems (1) Sepsis Assessment/Plan: iv abx- completed uti morganella observe off abx no fever elevated wbc appreicate ID follow up on po levaquin Code(s): A41.9 - SEPSIS, UNSPECIFIED ORGANISM Qualifiers: Sepsis type: sepsis due to unspecified organism Qualified Code(s): A41.9 - Sepsis, unspecified organism (2) Anemia Assessment/Plan: repeat cbc now is better check stool for occult blood noted GI consult appreciate iron panel noted Code(s): D64.9 - ANEMIA, UNSPECIFIED (3) Back pain Assessment/Plan: diluadid prn Code(s): M54.9 - DORSALGIA, UNSPECIFIED (4) Hypothyroid Assessment/Plan: tsh elevated 6.01 synthroid 50mcg to 75 mcg Code(s): E03.9 - HYPOTHYROIDISM, UNSPECIFIED Qualifiers: (5) Restless leg syndrome Assessment/Plan: mirapex Code(s): G25.81 - RESTLESS LEGS SYNDROME (6) Afib Assessment/Plan: eliquis Code(s): I48.91 - UNSPECIFIED ATRIAL FIBRILLATION (7) Anxiety Assessment/Plan: xanax prn Code(s): F41.9 - ANXIETY DISORDER, UNSPECIFIED (8) Respiratory failure Assessment/Plan: chronic resp failure s/p trach collar Code(s): J96.90 - RESPIRATORY FAILURE, UNSP, UNSP W HYPOXIA OR HYPERCAPNIA Assessment/Plan discharge back to [place]
[2018-12-23 14:09] VITALS: TEMP 98.1
--- NOTE | 2018-12-23 15:13 | PN ---
Progress Note, Physician History of Present Illness: Pt seen and examined at bedside. She appears more comfortable today. - Current Medication List Current Medications: Active Medications Acetaminophen (Tylenol -) 650 mg PO Q4H PRN PRN Reason: PAIN OR FEVER Last Admin: 12/22/18 22:26 Dose: 650 mg Albuterol/Ipratropium (Duoneb -) 1 amp NEB RTID [facility] Last Admin: 12/23/18 08:05 Dose: 1 amp Alprazolam (Xanax -) 0.25 mg PO Q8H PRN PRN Reason: ANXIETY Last Admin: 12/23/18 14:39 Dose: 0.25 mg Apixaban (Eliquis -) 5 mg PO BID [facility] Last Admin: 12/23/18 10:13 Dose: 5 mg Ascorbic Acid (Vitamin C -) 500 mg PO DAILY [facility] Last Admin: 12/23/18 10:13 Dose: 500 mg Cholestyramine Resin (Questran Light Packet -) 4 gm PO DAILY [facility] Last Admin: 12/23/18 10:13 Dose: 4 gm Ferrous Sulfate (Feosol -) 325 mg PO BID [facility] Last Admin: 12/23/18 10:13 Dose: 325 mg Guaifenesin (Robitussin Dm -) 10 ml PO Q4H PRN PRN Reason: COUGH Hydromorphone HCl (Dilaudid -) 2 mg PO Q5H PRN PRN Reason: PAIN LEVEL 7 - 10 Last Admin: 12/22/18 10:40 Dose: 2 mg Sodium Bicarbonate 75 meq/ (Sodium Chloride) 1,075 mls @ 100 mls/hr IV ASDIR [facility] Last Admin: 12/22/18 22:28 Dose: Not Given Lactobacillus Acidophilus (Bacid -) 1 tab PO DAILY [facility] Last Admin: 12/23/18 10:14 Dose: Not Given Levofloxacin (Levaquin -) 500 mg PO DAILY@0600 [facility] Last Admin: 12/23/18 06:07 Dose: 500 mg Levothyroxine Sodium (Synthroid -) 75 mcg PO DAILY@0700 [facility] Last Admin: 12/23/18 06:07 Dose: 75 mcg Loperamide HCl (Imodium -) 2 mg PO Q8H PRN PRN Reason: DIARRHEA Last Admin: 12/15/18 16:54 Dose: 2 mg Metoclopramide HCl (Reglan Injection -) 10 mg IVPUSH Q8H [facility] Last Admin: 12/23/18 14:37 Dose: Not Given Montelukast Sodium (Singulair -) 10 mg PO HS [facility] Last Admin: 12/22/18 22:26 Dose: 10 mg Pantoprazole Sodium (Protonix -) 40 mg PO DAILY [facility] Last Admin: 12/23/18 10:13 Dose: 40 mg Pramipexole Dihydrochloride (Mirapex -) 0.25 mg PO TID [facility] Last Admin: 12/23/18 14:15 Dose: 0.25 mg Sodium Bicarbonate (Sodium Bicarbonate -) 650 mg PO TID [facility] Last Admin: 12/23/18 14:15 Dose: 650 mg Topiramate (Topamax -) 100 mg PO DAILY [facility] Last Admin: 12/23/18 10:13 Dose: 100 mg Venlafaxine HCl (Effexor Xr -) 75 mg PO DAILY [facility] Last Admin: 12/23/18 10:13 Dose: 75 mg - Objective Vital Signs: Vital Signs Temperature 98.1 F 12/23/18 14:08 Pulse Rate 136 H 12/23/18 06:00 Respiratory Rate 12/22/18 23:49 Blood Pressure 111/61 12/23/18 06:00 O2 Sat by Pulse Oximetry (%) 97 12/23/18 14:47 Constitutional: Yes: Calm Eyes: Yes: Conjunctiva Clear HENT: Yes: Other (trache) Cardiovascular: Yes: S1, S2 Respiratory: Yes: Other (bilateral air entry) Genitourinary: Yes: WNL Musculoskeletal: Yes: WNL Edema: No Integumentary: Yes: Tattoos Neurological: Yes: Oriented Psychiatric: Yes: Oriented Labs: CBC, BMP 12/22/18 08:10 12/22/18 08:10 INR, PTT INR 1.80 (0.83-1.09) H 12/15/18 08:20 Assessment/Plan Current Medications Generic Name Dose Route Start Last Admin Trade Name Freq PRN Reason Stop Dose Admin Acetaminophen 650 mg 12/14/18 12:44 12/22/18 22:26 Tylenol - PO 650 mg Q4H PRN Administration PAIN OR FEVER Albuterol/Ipratropium 1 amp 12/20/18 14:00 12/23/18 08:05 Duoneb - NEB 1 amp RTID [facility] Administration Alprazolam 0.25 mg 12/22/18 15:24 12/23/18 14:39 Xanax - PO 0.25 mg Q8H PRN Administration ANXIETY Apixaban 5 mg 12/19/18 10:00 12/23/18 10:13 Eliquis - PO 5 mg BID [facility] Administration Ascorbic Acid 500 mg 12/14/18 10:00 12/23/18 10:13 Vitamin C - PO 500 mg DAILY [facility] Administration Cholestyramine Resin 4 gm 12/16/18 10:00 12/23/18 10:13 Questran Light Packet - PO 4 gm DAILY [facility] Administration Ferrous Sulfate 325 mg 12/13/18 22:00 12/23/18 10:13 Feosol - PO 325 mg BID [facility] Administration Guaifenesin 10 ml 12/14/18 12:46 Robitussin Dm - PO Q4H PRN COUGH Hydromorphone HCl 2 mg 12/20/18 17:36 12/22/18 10:40 Dilaudid - PO 2 mg Q5H PRN Administration PAIN LEVEL 7 - 10 Sodium Bicarbonate 75 meq/ 1,075 mls @ 100 mls/hr 12/21/18 23:00 12/22/18 22: 28 Sodium Chloride IV Not Given ASDIR [facility] Lactobacillus Acidophilus 1 tab 12/15/18 10:00 12/23/18 10:14 Bacid - PO Not Given DAILY [facility] Levofloxacin 500 mg 12/22/18 15:45 12/23/18 06:07 Levaquin - PO 500 mg DAILY@0600 [facility] Administration Levothyroxine Sodium 75 mcg 12/20/18 12:16 12/23/18 06:07 Synthroid - PO 75 mcg DAILY@0700 [facility] Administration Loperamide HCl 2 mg 12/15/18 15:07 12/15/18 16:54 Imodium - PO 2 mg Q8H PRN Administration DIARRHEA Metoclopramide HCl 10 mg 12/14/18 13:15 12/23/18 14:37 Reglan Injection - IVPUSH Not Given Q8H [facility] Montelukast Sodium 10 mg 12/13/18 22:00 12/22/18 22:26 Singulair - PO 10 mg HS [facility] Administration Pantoprazole Sodium 40 mg 12/22/18 10:00 12/23/18 10:13 Protonix - PO 40 mg DAILY [facility] Administration Pramipexole Dihydrochloride 0.25 mg 12/13/18 14:00 12/23/18 14:15 Mirapex - PO 0.25 mg TID [facility] Administration Sodium Bicarbonate 650 mg 12/22/18 14:00 12/23/18 14:15 Sodium Bicarbonate - PO 650 mg TID [facility] Administration Topiramate 100 mg 12/14/18 10:00 12/23/18 10:13 Topamax - PO 100 mg DAILY [facility] Administration Venlafaxine HCl 75 mg 12/14/18 10:00 12/23/18 10:13 Effexor Xr - PO 75 mg DAILY [facility] Administration Microbiology 12/21/18 13:00 Blood - Peripheral Venous Blood Culture - Preliminary NO GROWTH OBTAINED AFTER 48 HOURS, INCUBATION TO CONTINUE FOR 3 DAYS. 12/21/18 12:50 Blood - Peripheral Venous Blood Culture - Preliminary NO GROWTH OBTAINED AFTER 48 HOURS, INCUBATION TO CONTINUE FOR 3 DAYS. Impression 1. monika 2. hypokalemia 3. resp failure 4. asthma 5. copd 6. htn 7. a-fib 8. metabolic acidosis 9. leukocytosis Plan - check bmp - cont bicarb po for now - encourage po intake - pt refusing IV - follow cultures Dr Olmedo
[2018-12-23 15:24] LABS: SOLUBLE LIVER ANTIGEN ABS IgG 1.4 units (0.0-20.0)
[2018-12-25 02:58] VITALS: BMI 21.4
== END 2018-12-23 19:42 | DRG 871 ==
LOC: JER 13:52 → JERBED 19:29 → J4S 12-13 06:05 → J6S 12-14 23:14
PROVIDERS: ADMIT Family Medicine; ATTEND Family Medicine
PROC: 30233N1 Transfusion of Nonautologous Red Blood Cells into Peripheral Vein, Percutaneous Approach (ICD-10-PCS; principal; 2018-12-13)
DX: A41.59 Other Gram-negative sepsis (principal); G93.41 Metabolic encephalopathy; N39.0 Urinary tract infection, site not specified; J96.11 Chronic respiratory failure with hypoxia; J96.12 Chronic respiratory failure with hypercapnia; N17.9 Acute kidney failure, unspecified; E87.2 Acidosis; Z93.0 Tracheostomy status; I48.0 Paroxysmal atrial fibrillation; G25.81 Restless legs syndrome; D64.9 Anemia, unspecified; L89.322 Pressure ulcer of left buttock, stage 2; E87.5 Hyperkalemia; E03.9 Hypothyroidism, unspecified; M54.9 Dorsalgia, unspecified; E87.6 Hypokalemia; J45.909 Unspecified asthma, uncomplicated; J44.9 Chronic obstructive pulmonary disease, unspecified; D72.829 Elevated white blood cell count, unspecified; F41.8 Other specified anxiety disorders; F31.9 Bipolar disorder, unspecified; E11.9 Type 2 diabetes mellitus without complications; K21.9 Gastro-esophageal reflux disease without esophagitis
CPT/HCPCS: 36415; 36430; 36600; 70450-TC; 71045-TC-FY; 76705-TC; 80048; 80053; 80061; 81003; 81015; 82009; 82103; 82140; 82272; 82436; 82570; 82607; 82728; 82746; 82747; 82803; 82962; 83036; 83516; 83540; 83550; 83605; 83721; 83735; 84100; 84133; 84300; 84443; 84484; 85014; 85025; 85027; 85610; 85730; 86038; 86704; 86706; 86708; 86850; 86900; 86901; 86922; 87040; 87045; 87046; 87070; 87086; 87177; 87186; 87205; 87209; 87324; 87340; 87449; 87804; 93005; 93010; 94640; 99283-25; J0131; J7030; P9038; P9058

== ENCOUNTER 2018-12-27 10:42 | Inpatient (IN) | payer OTHER ==
--- NOTE | 2018-12-27 11:44 | PDOC ---
History of Present Illness - General Chief Complaint: Altered Mental Status Stated Complaint: Altered Mental Status Time Seen by Provider: 12/27/18 11:24 - History of Present Illness Initial Comments: The pt is a 53F w/ a history of HTN, BD, A-fib (eliquis), COPD, chronic respiratory failure s/p tracheostomy, UTI, and DM who presents from [facility] for evaluation of AMS. History limited as patient is unable to provide any details. Known history of UTIs Information from [place] limited to patient being altered from baseline. No fall or injury reported 12/27/18 11:39 Past History - Past Medical History Allergies/Adverse Reactions: Allergies Allergy/AdvReac Type Severity Reaction Status Date / Time oxycodone [Oxycodone] Allergy Severe Nausea Verified 12/27/18 11:33 oxycodone HCl [From Percocet] Allergy Severe Nausea Verified 12/27/18 11:33 aspirin Allergy Mild Verified 12/27/18 11:33 blueberry [Blueberry] Allergy Mild Swelling Verified 12/27/18 11:33 fentanyl Allergy Mild Vomiting Verified 12/27/18 11:33 ibuprofen Allergy Swelling Verified 12/27/18 11:33 aspartame AdvReac Mild Itching Verified 12/27/18 11:33 Home Medications: Ambulatory Orders Albuterol Sulfate Inhaler - [Ventolin HFA Inhaler -] 2 puff IH Q4H PRN #0 inhaler 11/29/16 Acetaminophen [Tylenol .Regular Strength -] 650 mg PO Q6H PRN #0 tablet Apixaban [Eliquis -] 5 mg PO BID tablet 04/29/17 Baclofen 10 mg PO TID 07/09/18 Rosuvastatin Calcium [Crestor] 10 mg PO DAILY 07/09/18 Montelukast Na [Singulair -] 10 mg PO HS 08/07/18 Topiramate [Topamax -] 100 mg PO DAILY #30 tablet 08/15/18 Alprazolam [Xanax] 0.25 mg PO Q8H PRN tablet MDD 3 10/23/18 Cholecalciferol (Vitamin D3) [Vitamin D3 -] 1,000 unit PO DAILY tab 11/09/18 Doxepin HCl [Sinequan -] 25 mg PO HS capsule 11/09/18 Ferrous Sulfate [Feosol] 325 mg PO BID ud 11/09/18 Nystatin Powder [Nystop Powder -] 1 applic TP DAILY applic 11/09/18 HYDROmorphone [Dilaudid -] 2 mg PO Q4H PRN 12/12/18 Insulin Sliding Scale [Novolog Vial Sliding Scale -] 0 units SQ TIDAC 12/12/18 Pramipexole Di-HCl [Mirapex] 0.5 mg PO TID 12/12/18 Ranitidine [Zantac -] 150 mg PO DAILY 12/12/18 Venlafaxine HCl ER [Effexor Xr -] 75 mg PO DAILY 12/12/18 Vitamin B Comp W-C [Nephro-Héctor -] 1 tablet PO DAILY 12/12/18 Albuterol 2.5/Ipratropium 0.5 [Duoneb -] 1 amp NEB RTID amp 12/23/18 Lactobacillus Acidophilus [Bacid -] 1 tab PO DAILY tab 12/23/18 Sodium Bicarbonate - 650 mg PO TID #30 tablet MDD 3 12/23/18 Acetaminophen [Tylenol .Regular Strength -] 650 mg PO Q6HPO PRN tablet Albuterol 2.5/Ipratropium 0.5 [Duoneb -] 1 amp NEB RTID amp 12/31/18 Alprazolam [Xanax] 0.25 mg PO Q8H PRN tablet MDD 3 12/31/18 Apixaban [Eliquis -] 5 mg PO BID tablet 12/31/18 Buspirone HCl [Buspar -] 10 mg PO BID tablet 12/31/18 Clotrimazole [Lotrimin -] 1 applic TP BID tube 12/31/18 Diphenhydramine HCl [Benadryl Capsule -] 25 mg PO Q6H PRN capsule 12/31/18 Ferrous Sulfate [Feosol] 325 mg PO BIDWM ud 12/31/18 HYDROmorphone [Dilaudid -] 2 mg PO Q6H PRN tablet MDD 4 12/31/18 Insulin Sliding Scale [Novolog Vial Sliding Scale -] 1 vial SQ ACHS units 12/31 Levothyroxine [Synthroid -] 75 mcg PO DAILY@0600 tablet 12/31/18 Loperamide HCl [Imodium -] 2 mg PO Q8H PRN capsule 12/31/18 Nystatin Powder [Nystop Powder -] 1 applic TP DAILY applic 12/31/18 Pramipexole Dihydrochloride [Mirapex -] 0.25 mg PO TID tablet 12/31/18 Venlafaxine HCl ER [Effexor Xr -] 75 mg PO DAILY@0600 cap.er.24h 12/31/18 Anemia: Yes Asthma: Yes (COPD, trach #8) Cancer: Yes (UTERINE) Cardiac Disorders: Yes (A-fib) CVA: No COPD: Yes CHF: No Dementia: No Diabetes: Yes GI Disorders: Yes (colitis, SB resection, GERD) Disorders: Yes (KIDNEY STENTS) HTN: Yes Hypercholesterolemia: Yes Liver Disease: No Psychiatric Problems: Yes (ANXIETY) Seizures: Yes (5 yrs ago) Thyroid Disease: No - Surgical History Abdominal Surgery: Yes (BOWEL RESECTION) Appendectomy: Yes (removed 1998) Cardiac Surgery: No Cholecystectomy: No Lung Surgery: No Neurologic Surgery: No Orthopedic Surgery: Yes (Back Sx T7,6) - Immunization History Td Vaccination: Yes TDAP Vaccination: Yes Immunization Up to Date: Yes - Suicide/Smoking/Psychosocial Hx Smoking Status: No Smoking History: Former smoker Have you smoked in the past 12 months: No Number of Cigarettes Smoked Daily: 3 If you are a former smoker, when did you quit?: 1997 Information on smoking cessation initiated: No 'Breaking Loose' booklet given: 03/12/15 Hx Alcohol Use: No Drug/Substance Use Hx: No Substance Use Type: None Hx Substance Use Treatment: No Review of Systems - Review of Systems Able to Perform ROS?: No (medical condition) *Physical Exam - Vital Signs Last Vital Signs Temp Pulse Resp BP Pulse Ox 100.3 F H 136 H 18 117/88 98 12/27/18 10:42 12/27/18 10:42 12/27/18 10:42 12/27/18 10:42 12/27/18 10:42 - Physical Exam Comments: GENERAL: Awake, in mild distress HEAD: No signs of trauma, normocephalic, atraumatic EYES: PERRLA, EOMI, sclera anicteric, conjunctiva clear ENT: Hearing grossly normal, nares patent, oropharynx clear without exudates. dry mucosa LUNGS: No distress, speaks full sentences, clear to auscultation bilaterally HEART: Tachycardic rate rhythm, normal S1 and S2, no murmurs appreciated, peripheral pulses normal and equal bilaterally ABDOMEN: Soft, nontender, normoactive bowel sounds. No guarding, no rebound EXTREMITIES : Normal inspection, Normal range of motion, no edema. No clubbing or cyanosis NEUROLOGICAL: Not oriented, repeating same words, not following commands SKIN: Small sacral wound, no bone seen 12/27/18 11:46 Moderate Sedation - Procedure Monitoring Vital Signs: Procedure Monitoring Vital Signs Temperature 100.3 F H 12/27/18 10:42 Pulse Rate 136 H 12/27/18 10:42 Respiratory Rate 18 12/27/18 10:42 Blood Pressure 117/88 12/27/18 10:42 O2 Sat by Pulse Oximetry (%) 98 12/27/18 10:42 ED Treatment Course - LABORATORY CBC & Chemistry Diagram: 12/28/18 06:30 12/31/18 08:35 - RADIOLOGY Radiology Studies Ordered: Category Date Time Status CHEST X-RAY PORTABLE* [RAD] Stat Radiology 12/27/18 11:27 Ordered Medical Decision Making - Medical Decision Making The pt is a 53F w/ a history of dementia, a-fib, UTI, chronic respiratory failure s/p tracheostomy, COPD who presents for evaluation of AMS ED Course Sepsis w/u IVF ECG, CXR ECG w/ sinus tach, HR 125, QTc 461 Labs significant for leukocytosis and elevated lactate UA w/ evidence of UTI Tylenol given Meropenem given for UTI based on previous cultures Mentation improved s/p fluids. Will follow simple commands but continues to be not oriented. Dispo: admit for IV abx and AMS *DC/Admit/Observation/Transfer Diagnosis at time of Disposition: Altered mental state Qualifiers: Altered mental status type: unspecified Qualified Code(s): R41.82 - Altered mental status, unspecified UTI (urinary tract infection) Qualifiers: Urinary tract infection type: acute cystitis Hematuria presence: without hematuria Qualified Code(s): N30.00 - Acute cystitis without hematuria HTN (hypertension) Qualifiers: Hypertension type: unspecified Qualified Code(s): I10 - Essential (primary) hypertension Diabetes mellitus, insulin dependent (IDDM), uncontrolled Qualifiers: Glycemic state: with hyperglycemia Qualified Code(s): E10.65 - Type 1 diabetes mellitus with hyperglycemia - Discharge Dispostion Disposition: [facility] Condition at time of disposition: Guarded Decision to Admit order: Yes - Referrals - Patient Instructions - Post Discharge Activity
[2018-12-27] MEDS ORDERED: SODIUM CHLORIDE 0.9% 500 ML INFUS.BAG IV ONE (11:49)
[2018-12-27 12:05] LABS: BASO % 0.3 % (0-2.0); EOS % 0.4 % (0-4.5); HEMATOCRIT 34.9 % (32.4-45.2); HEMOGLOBIN 11.9 GM/dL (10.7-15.3); LYMPH % 12.7 % (8-40); MCHC 34.2 g/dl (32.0-36.0); MEAN CELL VOLUME 96.6 fl (80-96); MEAN PLT VOLUME 8.6 fl (7.5-11.1); MONO % 4.7 % (3.8-10.2); NEUT % 81.9 % (42.8-82.8); PLATELET COUNT 804 K/MM3 (134-434); RBC 3.62 M/mm3 (3.60-5.2); RDW 19.5 % (11.6-15.6); WHITE BLOOD COUNT 16.1 K/mm3 (4.0-10.0)
[2018-12-27 12:06] LABS: VENOUS PC02 27.5 mmHg (38-52); VENOUS PH 7.32 (7.32-7.42)
[2018-12-27 12:08] LABS: URINE APPEARANCE TURBID; URINE COLOR AMBER; URINE GLUCOSE (UA) NEGATIVE (NEGATIVE); URINE KETONE TRACE (NEGATIVE); URINE LEUK ESTERASE 2+ (NEGATIVE); URINE NITRITE NEGATIVE (NEGATIVE); URINE PROTEIN 2+ (NEGATIVE)
[2018-12-27 12:13] LABS: URINE BACTERIA RARE /hpf (NONE SEEN); URINE HYALINE CAST 37 /lpf; URINE MUCUS MODERATE
[2018-12-27 12:19] LABS: INR 1.77 (0.83-1.09)
[2018-12-27 12:22] LABS: ACTIVATED PTT 39.3 SECONDS (25.2-36.5)
[2018-12-27 12:37] LABS: ALBUMIN 2.8 g/dl (3.4-5.0); ALK PHOS 304 U/L (45-117); ANION GAP 10 MMOL/L (8-16); BILIRUBIN,TOTAL 0.7 mg/dL (0.2-1); BLOOD UREA NITROGEN 11 mg/dL (7-18); CALCIUM 9.6 mg/dL (8.5-10.1); CHLORIDE 106 mmol/L (98-107); CO2 22 mmol/L (21-32); CREATININE 1.6 mg/dL (0.55-1.3); GLUCOSE,RANDOM 98 mg/dL (74-106); POTASSIUM 4.7 mmol/L (3.5-5.1); SGOT/AST 66 U/L (15-37); SGPT/ALT 42 U/L (13-61); SODIUM 138 mmol/L (136-145); TOT PROT 8.2 g/dl (6.4-8.2)
[2018-12-27] MEDS ORDERED: MEROPENEM 1 GM in DEXTROSE 5%-WATER 100 ML IVPB ONE (13:45)
[2018-12-27] MEDS ORDERED: ACETAMINOPHEN 1000 MG/100 ML VIAL (NON FORMULARY) IVPB ONE (13:49)
--- NOTE | 2018-12-27 14:26 | PDOC ---
Attending Attestation - Resident Resident Name: CarleyCristian pablo - ED Attending Attestation I have performed the following: I have examined & evaluated the patient, The case was reviewed & discussed with the resident, I agree w/resident's findings & plan - HPI HPI: 12/27/18 14:23 53-year-old female well [facility] with [facility] status. - Physicial Exam PE: 12/27/18 14:23 Febrile to 100.3, slight tachycardia, otherwise no respiratory distress and O2 sats are within normal limits Heart is regular tachycardia, lungs are clear Trach in place Suprapubic discomfort to palpation with some local guarding, abdomen is otherwise soft and nondistended without CVA tenderness - Medical Decision Making 12/27/18 14:24 53-year-old female sent with altered mental status. Sepsis protocol initiated, revealed leukocytosis with elevated lactate and evidence of UTI. IV fluid resuscitation, antipyretics Based on prior cultures, given meropenem as antibiotic for coverage Will need admission Heart Score/ECG Review #1 ECG reviewed & interpreted by me at: 11:43 General ECG Interpretation: Sinus Rhythm (sinus tach at 125), Normal Intervals ( qtc 461), No acute ischemic changes
[2018-12-27] MEDS ORDERED: ACETAMINOPHEN INJECTION 100 ML IVPB ONE (15:06)
[2018-12-27 15:17] LABS: ANISOCYTOSIS 2+; MACROCYTOSIS 0; PLATELET ESTIMATE INCREASED; TARGET CELLS 1+
[2018-12-27] MEDS ORDERED: IBUPROFEN 600 MG TABLET (FP) PO ONE (16:27)
--- NOTE | 2018-12-27 16:59 | HP ---
Admitting History and Physical - Admission Chief Complaint: came in for change MS History of Present Illness: The pt is a 53F w/ a history of HTN, BD, A-fib (eliquis), COPD, chronic respiratory failure s/p tracheostomy, UTI, and DM who presents from [facility] for evaluation of AMS. in ER elevated wbc 16.1 positve UA got meropenem - Past Medical History Cardiovascular: Yes: AFIB (Paroxysmal), HTN, Hyperlipdemia Pulmonary: Yes: Asthma, COPD, O2 Dependent, Previously Intubated, Other (Trach) Gastrointestinal: Yes: GI Bleed Hepatobiliary: Yes: Other (Fatty Liver). No: Cirrhosis Renal/: Yes: Cancer (Uterine), Other ([place] in the past) Heme/Onc: Yes: Anemia Infectious Disease: Yes: C-Diff (june 2014), Other (Osteomyelitis of thoracic spine) Psych: Yes: Anxiety, Bipolar, Depression Musculoskeletal: Yes: Chronic low back pain, Other (multiple vertebral fractures ) Endocrine: Yes: Diabetes Mellitus, Hypothyroidism - Past Surgical History Past Surgical History: Yes: Appendectomy, Colectomy (By description, right colon resection with anastamosis noted on colonoscopy 2013), Hysterectomy (ADE/ BSO), Stent - Smoking History Smoking history: Former smoker Have you smoked in the past 12 months: No Aproximately how many cigarettes per day: 3 If you are a former smoker, when did you quit?: 1997 - Alcohol/Substance Use Hx Alcohol Use: No History of Substance Use: reports: Prescription - Social History 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) History of Recent Travel: No Home Medications - Allergies Allergies/Adverse Reactions: Allergies Allergy/AdvReac Type Severity Reaction Status Date / Time oxycodone [Oxycodone] Allergy Severe Nausea Verified 12/27/18 11:33 oxycodone HCl [From Percocet] Allergy Severe Nausea Verified 12/27/18 11:33 aspirin Allergy Mild Verified 12/27/18 11:33 blueberry [Blueberry] Allergy Mild Swelling Verified 12/27/18 11:33 fentanyl Allergy Mild Vomiting Verified 12/27/18 11:33 ibuprofen Allergy Swelling Verified 12/27/18 11:33 aspartame AdvReac Mild Itching Verified 12/27/18 11:33 - Home Medications Home Medications: Ambulatory Orders Albuterol Sulfate Inhaler - [Ventolin HFA Inhaler -] 2 puff IH Q4H PRN #0 inhaler 11/29/16 Acetaminophen [Tylenol .Regular Strength -] 650 mg PO Q6H PRN #0 tablet Apixaban [Eliquis -] 5 mg PO BID tablet 04/29/17 Baclofen 10 mg PO TID 07/09/18 Rosuvastatin Calcium [Crestor] 10 mg PO DAILY 07/09/18 Montelukast Na [Singulair -] 10 mg PO HS 08/07/18 Topiramate [Topamax -] 100 mg PO DAILY #30 tablet 08/15/18 Alprazolam [Xanax] 0.25 mg PO Q8H PRN tablet MDD 3 10/23/18 Cholecalciferol (Vitamin D3) [Vitamin D3 -] 1,000 unit PO DAILY tab 11/09/18 Doxepin HCl [Sinequan -] 25 mg PO HS capsule 11/09/18 Ferrous Sulfate [Feosol] 325 mg PO BID ud 11/09/18 Nystatin Powder [Nystop Powder -] 1 applic TP DAILY applic 11/09/18 HYDROmorphone [Dilaudid -] 2 mg PO Q4H PRN 12/12/18 Insulin Sliding Scale [Novolog Vial Sliding Scale -] 0 units SQ TIDAC 12/12/18 Pramipexole Di-HCl [Mirapex] 0.5 mg PO TID 12/12/18 Ranitidine [Zantac -] 150 mg PO DAILY 12/12/18 Venlafaxine HCl ER [Effexor Xr -] 75 mg PO DAILY 12/12/18 Vitamin B Comp W-C [Nephro-Héctor -] 1 tablet PO DAILY 12/12/18 Albuterol 2.5/Ipratropium 0.5 [Duoneb -] 1 amp NEB RTID amp 12/23/18 Lactobacillus Acidophilus [Bacid -] 1 tab PO DAILY tab 12/23/18 Sodium Bicarbonate - 650 mg PO TID #30 tablet MDD 3 12/23/18 levoFLOXacin [Levaquin -] 500 mg PO DAILY@0600 #14 tablet MDD 1 12/23/18 Family Disease History - Family Disease History Family Disease History: Diabetes: Mother (Alive: heart surgery), Heart Disease: Mother, [place]: Father (: leukemia), Other: Brother (2,Healthy), Sister (1, Healthy) Physical Examination Vital Signs: Vital Signs Temperature 100.3 F H 12/27/18 10:42 Pulse Rate 136 H 12/27/18 10:42 Respiratory Rate 18 12/27/18 10:42 Blood Pressure 117/88 12/27/18 10:42 O2 Sat by Pulse Oximetry (%) 98 12/27/18 10:42 Labs: CBC, BMP 12/27/18 11:30 12/27/18 11:30 Problem List - Problems (1) Change in mental state Assessment/Plan: seoncadry to toxic metabolic enceophalopahty due to uti inc lactic acid iv abx Code(s): R41.82 - ALTERED MENTAL STATUS, UNSPECIFIED Qualifiers: Altered mental status type: unspecified Qualified Code(s): R41.82 - Altered mental status, unspecified (2) UTI (urinary tract infection) Assessment/Plan: ID eval meropenem cultures pending isolation Code(s): N39.0 - URINARY TRACT INFECTION, SITE NOT SPECIFIED Qualifiers: Urinary tract infection type: acute cystitis Hematuria presence: without hematuria Qualified Code(s): N30.00 - Acute cystitis without hematuria (3) Hypothyroid Assessment/Plan: syntbhroid Code(s): E03.9 - HYPOTHYROIDISM, UNSPECIFIED Qualifiers: (4) Tracheostomy in place Assessment/Plan: pulm trahc collar chronic resp failure nebulizers Code(s): Z93.0 - TRACHEOSTOMY STATUS (5) Diabetes mellitus Assessment/Plan: sliding scale insulin bgm Code(s): E11.9 - TYPE 2 DIABETES MELLITUS WITHOUT COMPLICATIONS (6) Afib Assessment/Plan: eliquis Code(s): I48.91 - UNSPECIFIED ATRIAL FIBRILLATION (7) Anxiety Assessment/Plan: xanax Code(s): F41.9 - ANXIETY DISORDER, UNSPECIFIED
[2018-12-27] MEDS: FERROUS SO4 325 MG TABLET (FP) PO SCH (17:30)
[2018-12-27] MEDS ORDERED: HYDROmorphone HCL 2 MG TABLET ONE (20:54)
[2018-12-27] MEDS: HYDROmorphone HCL 2 MG TABLET PO PRN (21:06)
[2018-12-27] MEDS: INSULIN SLIDING SCALE (NOVOLOG) 1 VIAL SQ SCH (22:38)
[2018-12-27] MEDS: ACETAMINOPHEN 325 MG TABLET (FP) PO PRN (22:41)
[2018-12-27] MEDS: ALBUTEROL SO4 2.5/IPRATROPIUM 0.5 INH SOL 3 ML VIAL.NEB. NEB SCH (22:50)
[2018-12-27] MEDS: APIXABAN 5 MG TABLET PO SCH (23:52)
[2018-12-27] MEDS: PRAMIPEXOLE DIHYDROCHLORIDE 0.25 MG TABLET PO SCH (23:52)
[2018-12-27] MEDS: ALPRAZolam 0.25 MG TABLET PO PRN (23:54)
[2018-12-28 01:09] VITALS: BMI 239.1
[2018-12-28] MEDS: VENLAFAXINE HCL 75 MG E.R. CAPSULES (FP) PO SCH (06:35)
[2018-12-28] MEDS: LEVOTHYROXINE NA 75 MCG TABLET (FP) PO SCH (06:35)
[2018-12-28] MEDS: PRAMIPEXOLE DIHYDROCHLORIDE 0.25 MG TABLET PO SCH ×3 (06:35→22:32)
[2018-12-28] MEDS: INSULIN SLIDING SCALE (NOVOLOG) 1 VIAL SQ SCH ×4 (06:42→22:31)
[2018-12-28 08:02] LABS: HEMATOCRIT 28.6 % (32.4-45.2); HEMOGLOBIN 9.8 GM/dL (10.7-15.3); MCH 32.9 pg (25.7-33.7); MCHC 34.2 g/dl (32.0-36.0); MEAN CELL VOLUME 96.4 fl (80-96); MEAN PLT VOLUME 8.4 fl (7.5-11.1); PLATELET COUNT 581 K/MM3 (134-434); RBC 2.97 M/mm3 (3.60-5.2); RDW 18.7 % (11.6-15.6); WHITE BLOOD COUNT 13.1 K/mm3 (4.0-10.0)
[2018-12-28 08:14] LABS: ALBUMIN 2.1 g/dl (3.4-5.0); ALK PHOS 222 U/L (45-117); ANION GAP 13 MMOL/L (8-16); BILIRUBIN,TOTAL 0.6 mg/dL (0.2-1); BLOOD UREA NITROGEN 11 mg/dL (7-18); CALCIUM 8.5 mg/dL (8.5-10.1); CHLORIDE 109 mmol/L (98-107); CO2 18 mmol/L (21-32); CREATININE 1.3 mg/dL (0.55-1.3); GLUCOSE,RANDOM 74 mg/dL (74-106); MAGNESIUM 1.5 mg/dL (1.8-2.4); POTASSIUM 3.8 mmol/L (3.5-5.1); SGOT/AST 62 U/L (15-37); SGPT/ALT 31 U/L (13-61); SODIUM 139 mmol/L (136-145); TOT PROT 6.1 g/dl (6.4-8.2)
[2018-12-28] MEDS: ALBUTEROL SO4 2.5/IPRATROPIUM 0.5 INH SOL 3 ML VIAL.NEB. NEB SCH ×3 (08:24→20:08)
--- NOTE | 2018-12-28 08:25 | PN ---
Progress Note, Physician Chief Complaint: ANXIOUS AWAKE C/O BEING SCARED - Current Medication List Current Medications: Active Medications Acetaminophen (Tylenol -) 650 mg PO Q6HPO PRN PRN Reason: FEVER Last Admin: 12/27/18 22:41 Dose: 650 mg Albuterol/Ipratropium (Duoneb -) 1 amp NEB RTID [facility] Last Admin: 12/27/18 22:50 Dose: 1 amp Alprazolam (Xanax -) 0.25 mg PO Q8H PRN PRN Reason: ANXIETY Last Admin: 12/27/18 23:54 Dose: 0.25 mg Apixaban (Eliquis -) 5 mg PO BID [facility] Last Admin: 12/27/18 23:52 Dose: 5 mg Ferrous Sulfate (Feosol -) 325 mg PO BIDWM [facility] Last Admin: 12/27/18 17:30 Dose: Not Given Hydromorphone HCl (Dilaudid -) 2 mg PO Q6H PRN PRN Reason: PAIN LEVEL 7 - 10 Last Admin: 12/27/18 21:06 Dose: 2 mg Insulin Aspart (Novolog Vial Sliding Scale -) 1 vial SQ [facility]; Protocol Last Admin: 12/28/18 06:42 Dose: Not Given Levothyroxine Sodium (Synthroid -) 75 mcg PO DAILY@0600 [facility] Last Admin: 12/28/18 06:35 Dose: 75 mcg Pramipexole Dihydrochloride (Mirapex -) 0.25 mg PO TID [facility] Last Admin: 12/28/18 06:35 Dose: 0.25 mg Venlafaxine HCl (Effexor Xr -) 75 mg PO DAILY@0600 [facility] Last Admin: 12/28/18 06:35 Dose: 75 mg - Objective Vital Signs: Vital Signs Temperature 98.7 F 12/28/18 06:00 Pulse Rate 110 H 12/28/18 06:00 Respiratory Rate 18 12/28/18 06:00 Blood Pressure 97/74 12/28/18 06:00 O2 Sat by Pulse Oximetry (%) 99 12/27/18 22:57 Constitutional: Yes: Mild Distress Eyes: Yes: WNL HENT: Yes: Other (TRACHEOSTOMY) Neck: Yes: WNL Cardiovascular: Yes: Tachycardia Respiratory: Yes: Other (TRACHCOLLAR) Gastrointestinal: Yes: Soft Genitourinary: Yes: Incontinence Musculoskeletal: Yes: Muscle Weakness Extremities: Yes: Other Edema: No Peripheral Pulses WNL: Yes Integumentary: Yes: Other Wound/Incision: Yes: Other Neurological: Yes: Pre-Existing Deficit ...Motor Strength: LLE, RLE Psychiatric: Yes: Other Labs: CBC, BMP 12/28/18 06:30 12/28/18 06:30 INR, PTT INR 1.77 (0.83-1.09) H 12/27/18 11:30 Problem List - Problems (1) Afib Code(s): I48.91 - UNSPECIFIED ATRIAL FIBRILLATION (2) Anxiety Code(s): F41.9 - ANXIETY DISORDER, UNSPECIFIED (3) Change in mental state Code(s): R41.82 - ALTERED MENTAL STATUS, UNSPECIFIED Qualifiers: Altered mental status type: unspecified Qualified Code(s): R41.82 - Altered mental status, unspecified (4) UTI (urinary tract infection) Code(s): N39.0 - URINARY TRACT INFECTION, SITE NOT SPECIFIED Qualifiers: Urinary tract infection type: acute cystitis Hematuria presence: without hematuria Qualified Code(s): N30.00 - Acute cystitis without hematuria (5) Diabetes mellitus, insulin dependent (IDDM), uncontrolled Code(s): E10.65 - TYPE 1 DIABETES MELLITUS WITH HYPERGLYCEMIA Qualifiers: Glycemic state: with hyperglycemia Qualified Code(s): E10.65 - Type 1 diabetes mellitus with hyperglycemia (6) HTN (hypertension) Code(s): I10 - ESSENTIAL (PRIMARY) HYPERTENSION Qualifiers: Hypertension type: unspecified Qualified Code(s): I10 - Essential (primary ) hypertension (7) Acute and chronic respiratory failure with hypoxia Code(s): J96.21 - ACUTE AND CHRONIC RESPIRATORY FAILURE WITH HYPOXIA (8) Anemia Code(s): D64.9 - ANEMIA, UNSPECIFIED (9) Bipolar 1 disorder Code(s): F31.9 - BIPOLAR DISORDER, UNSPECIFIED (10) Hypothyroid Code(s): E03.9 - HYPOTHYROIDISM, UNSPECIFIED Qualifiers: (11) Somatic complaints, multiple Code(s): R68.89 - OTHER GENERAL SYMPTOMS AND SIGNS (12) Chronic back pain Code(s): M54.9 - DORSALGIA, UNSPECIFIED; G89.29 - OTHER CHRONIC PAIN (13) Chronic pain disorder Code(s): G89.4 - CHRONIC PAIN SYNDROME (14) Depression with anxiety Code(s): F41.8 - OTHER SPECIFIED ANXIETY DISORDERS Assessment/Plan PATIENT RECEIVING IV ABX CHECKING CULTURES ID F/U CHRONIC PAIN D/O PATIENT IN BED ALL DAY [place] HAS CHRONIC BACK AND HIP PAIN FROM POSITIONING. 02 SUPPORT, [facility] EVAL FOR CHRONIC ANXIETY/SOMATIZATION
[2018-12-28] MEDS ORDERED: INSULIN (NOVOLOG) ASPART 100 UNITS/ML 10ML VIAL ONE (09:06)
[2018-12-28] MEDS: APIXABAN 5 MG TABLET PO SCH ×2 (09:38→22:32)
[2018-12-28] MEDS: ALPRAZolam 0.25 MG TABLET PO PRN ×2 (09:38→22:31)
[2018-12-28] MEDS: FERROUS SO4 325 MG TABLET (FP) PO SCH ×2 (09:38→17:47)
--- NOTE | 2018-12-28 11:44 | CON.PULM ---
Consult Consult Specialty:: PULM/CCM Referred by:: IRINEO Reason for Consultation:: Trach - History of Present Illness Chief Complaint: AMS History of Present Illness: 53 F, well known to our service. Extensive medical history of COPD, Asthma, respiratory failure, Tracheostomy, HTN, A-fib (eliquis), COPD, chronic respiratory failure, UTI, and DM. [facility] from the [facility] due to AMS. Patient is on chronic VM but not on mechanical ventilation. No reported SOB or CP. Noted to have an elevated WBC of 16.1 and (+) UA. CXR: No acute process - History Source History Provided By: Patient, Medical Record Limitations to Obtaining History: Clinical Condition - Past Medical History Cardio/Vascular: Yes: AFIB (Paroxysmal), HTN, Hyperlipdemia Pulmonary: Yes: Asthma, COPD, O2 Dependent, Previously Intubated, Other (Trach) Gastrointestinal: Yes: GI Bleed Hepatobiliary: Yes: Other (Fatty Liver). No: Cirrhosis Renal/: Yes: Cancer (Uterine), Other ([place] in the past) Infectious Disease: Yes: C-Diff (june 2014), Other (Osteomyelitis of thoracic spine) Psych: Yes: Anxiety, Bipolar, Depression Musculoskeletal: Yes: Chronic low back pain, Other (multiple vertebral fractures ) Endocrine: Yes: Diabetes Mellitus, Hypothyroidism Additional Medical History: Frequent c/o abdominal pain-extensive w/u in the past negative. Presumed adhesions from prior surgeries. - Past Surgical History Past Surgical History: Yes: Appendectomy, Colectomy (By description, right colon resection with anastamosis noted on colonoscopy 2013), Hysterectomy (ADE/ BSO), Stent - Alcohol/Substance Use Hx Alcohol Use: No History of Substance Use: reports: Prescription - Smoking History Smoking history: Former smoker Have you smoked in the past 12 months: No Aproximately how many cigarettes per day: 3 If you are a former smoker, when did you quit?: 1997 - Social History Usual Living Arrangement: Residential 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) History of Recent Travel: No Home Medications - Allergies Allergies/Adverse Reactions: Allergies Allergy/AdvReac Type Severity Reaction Status Date / Time oxycodone [Oxycodone] Allergy Severe Nausea Verified 12/27/18 11:33 oxycodone HCl [From Percocet] Allergy Severe Nausea Verified 12/27/18 11:33 aspirin Allergy Mild Verified 12/27/18 11:33 blueberry [Blueberry] Allergy Mild Swelling Verified 12/27/18 11:33 fentanyl Allergy Mild Vomiting Verified 12/27/18 11:33 ibuprofen Allergy Swelling Verified 12/27/18 11:33 aspartame AdvReac Mild Itching Verified 12/27/18 11:33 - Home Medications Home Medications: Ambulatory Orders Albuterol Sulfate Inhaler - [Ventolin HFA Inhaler -] 2 puff IH Q4H PRN #0 inhaler 11/29/16 Acetaminophen [Tylenol .Regular Strength -] 650 mg PO Q6H PRN #0 tablet Apixaban [Eliquis -] 5 mg PO BID tablet 04/29/17 Baclofen 10 mg PO TID 07/09/18 Rosuvastatin Calcium [Crestor] 10 mg PO DAILY 07/09/18 Montelukast Na [Singulair -] 10 mg PO HS 08/07/18 Topiramate [Topamax -] 100 mg PO DAILY #30 tablet 08/15/18 Alprazolam [Xanax] 0.25 mg PO Q8H PRN tablet MDD 3 10/23/18 Cholecalciferol (Vitamin D3) [Vitamin D3 -] 1,000 unit PO DAILY tab 11/09/18 Doxepin HCl [Sinequan -] 25 mg PO HS capsule 11/09/18 Ferrous Sulfate [Feosol] 325 mg PO BID ud 11/09/18 Nystatin Powder [Nystop Powder -] 1 applic TP DAILY applic 11/09/18 HYDROmorphone [Dilaudid -] 2 mg PO Q4H PRN 12/12/18 Insulin Sliding Scale [Novolog Vial Sliding Scale -] 0 units SQ TIDAC 12/12/18 Pramipexole Di-HCl [Mirapex] 0.5 mg PO TID 12/12/18 Ranitidine [Zantac -] 150 mg PO DAILY 12/12/18 Venlafaxine HCl ER [Effexor Xr -] 75 mg PO DAILY 12/12/18 Vitamin B Comp W-C [Nephro-Héctor -] 1 tablet PO DAILY 12/12/18 Albuterol 2.5/Ipratropium 0.5 [Duoneb -] 1 amp NEB RTID amp 12/23/18 Lactobacillus Acidophilus [Bacid -] 1 tab PO DAILY tab 12/23/18 Sodium Bicarbonate - 650 mg PO TID #30 tablet MDD 3 12/23/18 levoFLOXacin [Levaquin -] 500 mg PO DAILY@0600 #14 tablet MDD 1 12/23/18 Family Disease History - Family Disease History Family Disease History: Diabetes: Mother (Alive: heart surgery), Heart Disease: Mother, [place]: Father (: leukemia), Other: Brother (2,Healthy), Sister (1, Healthy) Review of Systems - Review of Systems Constitutional: reports: Lethargy, Malaise. denies: Chills, Fever, Night Sweats , Unintentional Wgt. Loss Eyes: reports: No Symptoms HENT: reports: No Symptoms Neck: reports: No Symptoms Cardiovascular: reports: No Symptoms Respiratory: reports: Cough, SOB. denies: Hemoptysis, Snoring, Wheezing Gastrointestinal: reports: No Symptoms Genitourinary: reports: No Symptoms Breasts: reports: No Symptoms Reported Musculoskeletal: reports: No Symptoms Integumentary: reports: No Symptoms Neurological: reports: No Symptoms Endocrine: reports: No Symptoms Hematology/Lymphatic: reports: No Symptoms Psychiatric: reports: Anxiety Physical Exam Vital Sings: Vital Signs Temperature 97.7 F 12/28/18 08:42 Pulse Rate 118 H 12/28/18 08:42 Respiratory Rate 20 12/28/18 08:42 Blood Pressure 119/77 12/28/18 08:42 O2 Sat by Pulse Oximetry (%) 99 12/27/18 22:57 Constitutional: Yes: No Distress Eyes: Yes: Conjunctiva Clear, EOM Intact HENT: Yes: Atraumatic, Normocephalic Neck: Yes: Supple, Trachea Midline, Other (Trach intact ) Cardiovascular: Yes: Pulse Irregular Respiratory: Yes: Cough, Diminished, Other (Trach ). No: Accessory Muscle Use, Rales, Rhonchi, SOB, SOB on Exertion, Stridor, Tachypnea, Wheezes ...Inspection: Yes: WNL ...Clubbing: No Gastrointestinal: Yes: Normal Bowel Sounds, Soft Musculoskeletal: Yes: WNL Extremities: Yes: Shortened Edema: No Peripheral Pulses WNL: Yes Integumentary: Yes: WNL Neurological: Yes: Confusion Psychiatric: Yes: Other (Confusion ) Labs: CBC, BMP 12/28/18 06:30 12/28/18 06:30 Imaging - Results Chest X-ray: Report Reviewed, Image Reviewed Problem List - Problems (1) Afib Code(s): I48.91 - UNSPECIFIED ATRIAL FIBRILLATION (2) Anxiety Code(s): F41.9 - ANXIETY DISORDER, UNSPECIFIED (3) Change in mental state Code(s): R41.82 - ALTERED MENTAL STATUS, UNSPECIFIED Qualifiers: Altered mental status type: unspecified Qualified Code(s): R41.82 - Altered mental status, unspecified (4) UTI (urinary tract infection) Code(s): N39.0 - URINARY TRACT INFECTION, SITE NOT SPECIFIED Qualifiers: Urinary tract infection type: acute cystitis Hematuria presence: without hematuria Qualified Code(s): N30.00 - Acute cystitis without hematuria (5) Diabetes mellitus, insulin dependent (IDDM), uncontrolled Code(s): E10.65 - TYPE 1 DIABETES MELLITUS WITH HYPERGLYCEMIA Qualifiers: Glycemic state: with hyperglycemia Qualified Code(s): E10.65 - Type 1 diabetes mellitus with hyperglycemia (6) HTN (hypertension) Code(s): I10 - ESSENTIAL (PRIMARY) HYPERTENSION Qualifiers: Hypertension type: unspecified Qualified Code(s): I10 - Essential (primary ) hypertension (7) Chronic respiratory failure Code(s): J96.10 - CHRONIC RESPIRATORY FAILURE, UNSP W HYPOXIA OR HYPERCAPNIA (8) Diabetes Code(s): E11.9 - TYPE 2 DIABETES MELLITUS WITHOUT COMPLICATIONS (9) Hypothyroid Code(s): E03.9 - HYPOTHYROIDISM, UNSPECIFIED Qualifiers: (10) Insomnia disorder Code(s): G47.00 - INSOMNIA, UNSPECIFIED (11) Lethargy Code(s): R53.83 - OTHER FATIGUE (12) Afib Code(s): I48.91 - UNSPECIFIED ATRIAL FIBRILLATION (13) Asthma Code(s): J45.909 - UNSPECIFIED ASTHMA, UNCOMPLICATED (14) COPD (chronic obstructive pulmonary disease) Code(s): J44.9 - CHRONIC OBSTRUCTIVE PULMONARY DISEASE, UNSPECIFIED (15) Chronic back pain Code(s): M54.9 - DORSALGIA, UNSPECIFIED; G89.29 - OTHER CHRONIC PAIN (16) Constipation Code(s): K59.00 - CONSTIPATION, UNSPECIFIED Qualifiers: Constipation type: unspecified constipation type Qualified Code(s): K59.00 - Constipation, unspecified (17) Depression with anxiety Code(s): F41.8 - OTHER SPECIFIED ANXIETY DISORDERS (18) Neuropathy Code(s): G62.9 - POLYNEUROPATHY, UNSPECIFIED Assessment/Plan Trach collar O@ as needed Do not suspect respiratory tract infection ABX per ID Aspiration precautions BD TX PRN No indication for steroids Will follow Thank you. Dr Castaneda
[2018-12-28] MEDS: HYDROmorphone HCL 2 MG TABLET PO PRN ×2 (12:10→20:09)
--- NOTE | 2018-12-28 12:50 | PN ---
Progress Note (short form) - Note Progress Note: ID CONSULT DICTATED UTI R/O SEPSIS SECONDARY TO UTI TOXIC METABOLIC ENCEPHALOPATHY HX ESBL PENDING SEPSIS W/U EMPIRIC MEROPENEM
[2018-12-28] MEDS: SILVER SULFADIAZINE 1% TOP CREAM 50 GM JAR TP SCH ×2 (13:41→22:32)
--- NOTE | 2018-12-28 14:23 | CONSULT ---
Consult Consult Specialty:: Nephrology Reason for Consultation:: renal failure - History of Present Illness Chief Complaint: change in mental status History of Present Illness: Pt is a 53 year old female with pmhx of htn, ckd, copd, and DM who was sent in for change in mental status. She was recently discharged from the hospital. She was found to have a uti and admitted for treatment. Her mental status is improved. SHe was found to have elevated creatinine and I was called to evaluate her. - History Source History Provided By: Patient, Medical Record - Past Medical History Cardio/Vascular: Yes: AFIB (Paroxysmal), HTN, Hyperlipdemia Pulmonary: Yes: Asthma, COPD, O2 Dependent, Previously Intubated, Other (Trach) Gastrointestinal: Yes: GI Bleed Hepatobiliary: Yes: Other (Fatty Liver). No: Cirrhosis Renal/: Yes: Cancer (Uterine), Other ([place] in the past) Infectious Disease: Yes: C-Diff (june 2014), Other (Osteomyelitis of thoracic spine) Psych: Yes: Anxiety, Bipolar, Depression Musculoskeletal: Yes: Chronic low back pain, Other (multiple vertebral fractures ) Endocrine: Yes: Diabetes Mellitus, Hypothyroidism Additional Medical History: Frequent c/o abdominal pain-extensive w/u in the past negative. Presumed adhesions from prior surgeries. - Past Surgical History Past Surgical History: Yes: Appendectomy, Colectomy (By description, right colon resection with anastamosis noted on colonoscopy 2013), Hysterectomy (ADE/ BSO), Stent - Alcohol/Substance Use Hx Alcohol Use: No History of Substance Use: reports: Prescription - Smoking History Smoking history: Former smoker Have you smoked in the past 12 months: No Aproximately how many cigarettes per day: 3 If you are a former smoker, when did you quit?: 1997 - Social History Usual Living Arrangement: Detention 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) History of Recent Travel: No Home Medications - Allergies Allergies/Adverse Reactions: Allergies Allergy/AdvReac Type Severity Reaction Status Date / Time oxycodone [Oxycodone] Allergy Severe Nausea Verified 12/27/18 11:33 oxycodone HCl [From Percocet] Allergy Severe Nausea Verified 12/27/18 11:33 aspirin Allergy Mild Verified 12/27/18 11:33 blueberry [Blueberry] Allergy Mild Swelling Verified 12/27/18 11:33 fentanyl Allergy Mild Vomiting Verified 12/27/18 11:33 ibuprofen Allergy Swelling Verified 12/27/18 11:33 aspartame AdvReac Mild Itching Verified 12/27/18 11:33 - Home Medications Home Medications: Ambulatory Orders Albuterol Sulfate Inhaler - [Ventolin HFA Inhaler -] 2 puff IH Q4H PRN #0 inhaler 11/29/16 Acetaminophen [Tylenol .Regular Strength -] 650 mg PO Q6H PRN #0 tablet Apixaban [Eliquis -] 5 mg PO BID tablet 04/29/17 Baclofen 10 mg PO TID 07/09/18 Rosuvastatin Calcium [Crestor] 10 mg PO DAILY 07/09/18 Montelukast Na [Singulair -] 10 mg PO HS 08/07/18 Topiramate [Topamax -] 100 mg PO DAILY #30 tablet 08/15/18 Alprazolam [Xanax] 0.25 mg PO Q8H PRN tablet MDD 3 10/23/18 Cholecalciferol (Vitamin D3) [Vitamin D3 -] 1,000 unit PO DAILY tab 11/09/18 Doxepin HCl [Sinequan -] 25 mg PO HS capsule 11/09/18 Ferrous Sulfate [Feosol] 325 mg PO BID ud 11/09/18 Nystatin Powder [Nystop Powder -] 1 applic TP DAILY applic 11/09/18 HYDROmorphone [Dilaudid -] 2 mg PO Q4H PRN 12/12/18 Insulin Sliding Scale [Novolog Vial Sliding Scale -] 0 units SQ TIDAC 12/12/18 Pramipexole Di-HCl [Mirapex] 0.5 mg PO TID 12/12/18 Ranitidine [Zantac -] 150 mg PO DAILY 12/12/18 Venlafaxine HCl ER [Effexor Xr -] 75 mg PO DAILY 12/12/18 Vitamin B Comp W-C [Nephro-Héctor -] 1 tablet PO DAILY 12/12/18 Albuterol 2.5/Ipratropium 0.5 [Duoneb -] 1 amp NEB RTID amp 12/23/18 Lactobacillus Acidophilus [Bacid -] 1 tab PO DAILY tab 12/23/18 Sodium Bicarbonate - 650 mg PO TID #30 tablet MDD 3 12/23/18 levoFLOXacin [Levaquin -] 500 mg PO DAILY@0600 #14 tablet MDD 1 12/23/18 Family Disease History - Family Disease History Family Disease History: Diabetes: Mother (Alive: heart surgery), Heart Disease: Mother, CA: Father (: leukemia), Other: Brother (2,Healthy), Sister (1, Healthy) Review of Systems - Review of Systems Constitutional: reports: Chills, Malaise Eyes: reports: No Symptoms HENT: reports: No Symptoms Respiratory: reports: Other (trache) Musculoskeletal: reports: No Symptoms Physical Exam Vital Signs: Vital Signs Temperature 97.7 F 12/28/18 08:42 Pulse Rate 118 H 12/28/18 13:56 Respiratory Rate 20 12/28/18 13:56 Blood Pressure 101/65 12/28/18 13:56 O2 Sat by Pulse Oximetry (%) 99 12/27/18 22:57 Constitutional: Yes: Calm Eyes: Yes: Conjunctiva Clear HENT: Yes: Atraumatic Neck: Yes: Other (trache) Cardiovascular: Yes: S1, S2 Respiratory: Yes: CTA Bilaterally Gastrointestinal: Yes: Soft Renal/: Yes: WNL Musculoskeletal: Yes: WNL Edema: No Integumentary: Yes: Tattoos Neurological: Yes: Oriented Labs: CBC, BMP 12/28/18 06:30 12/28/18 06:30 Laboratory Tests 12/28/18 12/28/18 06:30 06:30 WBC 13.1 H BUN 11 Creatinine 1.3 Magnesium 1.5 L Problem List - Problems (1) Change in mental state Code(s): R41.82 - ALTERED MENTAL STATUS, UNSPECIFIED Qualifiers: Altered mental status type: unspecified Qualified Code(s): R41.82 - Altered mental status, unspecified (2) UTI (urinary tract infection) Code(s): N39.0 - URINARY TRACT INFECTION, SITE NOT SPECIFIED Qualifiers: Urinary tract infection type: acute cystitis Hematuria presence: without hematuria Qualified Code(s): N30.00 - Acute cystitis without hematuria (3) LEEANNA (acute kidney injury) Code(s): N17.9 - ACUTE KIDNEY FAILURE, UNSPECIFIED Assessment/Plan Current Medications Generic Name Dose Route Start Last Admin Trade Name Freq PRN Reason Stop Dose Admin Acetaminophen 650 mg 12/27/18 17:06 12/27/18 22:41 Tylenol - PO 650 mg Q6HPO PRN Administration FEVER Albuterol/Ipratropium 1 amp 12/27/18 20:00 12/28/18 08:24 Duoneb - NEB 1 amp RTID [facility]MM[facility] Administration Alprazolam 0.25 mg 12/27/18 16:58 12/28/18 09:38 Xanax - PO 0.25 mg Q8H PRN Administration ANXIETY Apixaban 5 mg 12/27/18 22:00 12/28/18 09:38 Eliquis - PO 5 mg BID [facility] Administration Ferrous Sulfate 325 mg 12/27/18 17:30 12/28/18 09:38 Feosol - PO 325 mg BIDWM [facility] Administration Hydromorphone HCl 2 mg 12/27/18 17:03 12/28/18 12:10 Dilaudid - PO 2 mg Q6H PRN Administration PAIN LEVEL 7 - 10 Meropenem 1 gm/ Dextrose 100 mls @ 200 mls/hr 12/28/18 13:00 IVPB Q8H-IV [facility] Insulin Aspart 1 vial 12/27/18 22:00 12/28/18 12:19 Novolog Vial Sliding Scale - SQ Not Given ACHS [facility] Protocol Levothyroxine Sodium 75 mcg 12/28/18 06:00 12/28/18 06:35 Synthroid - PO 75 mcg DAILY@0600 [facility] Administration Pramipexole Dihydrochloride 0.25 mg 12/27/18 22:00 12/28/18 13:42 Mirapex - PO 0.25 mg TID [facility] Administration Silver Sulfadiazine 1 applic 12/28/18 10:00 12/28/18 13:41 Silvadene - TP 1 applic BID [facility] Administration Venlafaxine HCl 75 mg 12/28/18 06:00 12/28/18 06:35 Effexor Xr - PO 75 mg DAILY@0600 [facility] Administration Impression 1. leeanna 2. mild lactic acidosis 3. resp failure 4. asthma 5. copd 6. htn 7. a-fib 8. metabolic acidosis 9. leukocytosis 10. UTI Plan - gently hydration, access is a problem - abx per ID - follow cultures - encourage PO intake - lactic acid improving
[2018-12-28] MEDS ORDERED: MAGNESIUM OXIDE 400 MG TABLET (FP) PO ONE (14:45)
[2018-12-28] MEDS: SODIUM CHLORIDE 0.45% 1,000 ML IV SCH (14:51)
[2018-12-28] MEDS: MEROPENEM 1 GM in DEXTROSE 5%-WATER 100 ML IVPB SCH ×2 (14:51→18:35)
[2018-12-28] MEDS: ACETAMINOPHEN 325 MG TABLET (FP) PO PRN (15:04)
--- NOTE | 2018-12-28 15:10 | EKG ---
Test Reason : Blood Pressure : / mmHG Vent. Rate : 125 BPM Atrial Rate : 375 BPM P-R Int : 000 ms QRS Dur : 078 ms QT Int : 320 ms P-R-T Axes : 051 054 065 degrees QTc Int : 461 ms SINUS TACHYCARDIA LEFT ATRIAL ENLARGEMENT NONSPECIFIC ST ABNORMALITY NO SIGNIFICANT CHANGE WAS FOUND Confirmed by Kael Cordero MD ([id number]) on 12/28/2018 3:09:33 PM Referred By: Confirmed By:Kael Cordero MD
--- NOTE | 2018-12-28 18:35 | CON.PSY ---
Psychiatry Consult Chief Complaint: I have anxiety Patient known to me from previous dmissions. History of severe COPD. Symptoms: reports: Anxiety - Previous Psychiatric Treatment Outpatient: None - Previous Substance Abuse Treatment Outpatient: None Inpatient: None - Reason for Previous Treatment Reason for Previous Treatment: Anxiety or Panic Disorder - Current Medications Current Medications: Active Medications Acetaminophen (Tylenol -) 650 mg PO Q6HPO PRN PRN Reason: FEVER Last Admin: 12/28/18 15:04 Dose: 650 mg Albuterol/Ipratropium (Duoneb -) 1 amp NEB RTID [facility] Last Admin: 12/28/18 15:34 Dose: 1 amp Alprazolam (Xanax -) 0.25 mg PO Q8H PRN PRN Reason: ANXIETY Last Admin: 12/28/18 09:38 Dose: 0.25 mg Apixaban (Eliquis -) 5 mg PO BID [facility] Last Admin: 12/28/18 09:38 Dose: 5 mg Ferrous Sulfate (Feosol -) 325 mg PO BIDWM [facility] Last Admin: 12/28/18 17:47 Dose: 325 mg Hydromorphone HCl (Dilaudid -) 2 mg PO Q6H PRN PRN Reason: PAIN LEVEL 7 - 10 Last Admin: 12/28/18 12:10 Dose: 2 mg Meropenem 1 gm/ Dextrose 100 mls @ 200 mls/hr IVPB Q8H-IV [facility] Last Admin: 12/28/18 14:51 Dose: 200 mls/hr Sodium Chloride (1/2 Normal Saline) 1,000 mls @ 40 mls/hr IV ASDIR [facility] Last Admin: 12/28/18 14:51 Dose: 40 mls/hr Insulin Aspart (Novolog Vial Sliding Scale -) 1 vial SQ ACHS [facility]; Protocol Last Admin: 12/28/18 16:15 Dose: Not Given Levothyroxine Sodium (Synthroid -) 75 mcg PO DAILY@0600 [facility] Last Admin: 12/28/18 06:35 Dose: 75 mcg Pramipexole Dihydrochloride (Mirapex -) 0.25 mg PO TID [facility] Last Admin: 12/28/18 13:42 Dose: 0.25 mg Silver Sulfadiazine (Silvadene -) 1 applic TP BID [facility] Last Admin: 12/28/18 13:41 Dose: 1 applic Venlafaxine HCl (Effexor Xr -) 75 mg PO DAILY@0600 [facility] Last Admin: 12/28/18 06:35 Dose: 75 mg - Allergies Allergies: Allergies Allergy/AdvReac Type Severity Reaction Status Date / Time oxycodone [Oxycodone] Allergy Severe Nausea Verified 12/27/18 11:33 oxycodone HCl [From Percocet] Allergy Severe Nausea Verified 12/27/18 11:33 aspirin Allergy Mild Verified 12/27/18 11:33 blueberry [Blueberry] Allergy Mild Swelling Verified 12/27/18 11:33 fentanyl Allergy Mild Vomiting Verified 12/27/18 11:33 ibuprofen Allergy Swelling Verified 12/27/18 11:33 aspartame AdvReac Mild Itching Verified 12/27/18 11:33 - Current Living Status Usual Living Arrangement: Group Home - Current Mental Status Evaluation Appearance: Well Groomed Attitude: Cooperative - Affect Affect: Constrictive Appropriateness: Appropriate to Content - Mood Mood: Anxious - Speech/Language Expressive: Coherent - Psychomotor Activity Psychomotor Activity: Hyperactive - Thought Process Thought Process: Intact - Thought Content Hallucinations: Absent Delusions: Absent - Self Perception Self Perception: No Impairment - Cognition Attention: Alert Orientation: Time Memory, Short Term: 2/3 Memory, Remote with Promptin/3 - Concentration Serial Sevens Intact: No Simple Calculations Intact: Yes - Abstraction Proverb Interpretation: Intact Judgement: Minimally Impaired - Insight Insight: Intact - Impulse Control Impulse Control: Minimally Impaired - Suicidal Ideation Suicidal Ideation: No - Homicidal Ideation Homicidal Ideation: No Assessment/Plan Stasrt BUspar 10mg po bid for anxiety. 2) continue with Xanax PRN.
[2018-12-28] MEDS ORDERED: PT OWN MED DRAWER 7, Y5N ONE (20:27)
[2018-12-28] MEDS: busPIRone HCL 10 MG TABLET (FP) PO SCH (22:32)
[2018-12-29] MEDS ORDERED: PT OWN MED DRAWER 7, Y5N ONE ×2 (01:22→21:07)
[2018-12-29] MEDS: MEROPENEM 1 GM in DEXTROSE 5%-WATER 100 ML IVPB SCH ×3 (01:24→17:02)
[2018-12-29] MEDS ORDERED: diphenhydrAMINE HCL 25 MG CAPSULE (FP) PO ONE (01:28)
[2018-12-29] MEDS: LEVOTHYROXINE NA 75 MCG TABLET (FP) PO SCH (06:51)
[2018-12-29] MEDS: VENLAFAXINE HCL 75 MG E.R. CAPSULES (FP) PO SCH (06:52)
[2018-12-29] MEDS: INSULIN SLIDING SCALE (NOVOLOG) 1 VIAL SQ SCH ×4 (06:52→21:54)
[2018-12-29] MEDS: PRAMIPEXOLE DIHYDROCHLORIDE 0.25 MG TABLET PO SCH ×3 (06:52→21:26)
[2018-12-29] MEDS: HYDROmorphone HCL 2 MG TABLET PO PRN ×3 (06:57→21:27)
[2018-12-29] MEDS: ALBUTEROL SO4 2.5/IPRATROPIUM 0.5 INH SOL 3 ML VIAL.NEB. NEB SCH ×3 (07:35→20:13)
--- NOTE | 2018-12-29 09:26 | PN ---
Progress Note, Physician Chief Complaint: AWAKE ALERT C/O SKIN BURNING AROUND HER ABDOMEN - Current Medication List Current Medications: Active Medications Acetaminophen (Tylenol -) 650 mg PO Q6HPO PRN PRN Reason: FEVER Last Admin: 12/28/18 15:04 Dose: 650 mg Albuterol/Ipratropium (Duoneb -) 1 amp NEB RTID [facility] Last Admin: 12/29/18 07:35 Dose: 1 amp Alprazolam (Xanax -) 0.25 mg PO Q8H PRN PRN Reason: ANXIETY Last Admin: 12/28/18 22:31 Dose: 0.25 mg Apixaban (Eliquis -) 5 mg PO BID [facility] Last Admin: 12/28/18 22:32 Dose: 5 mg Buspirone HCl (Buspar -) 10 mg PO BID [facility] Last Admin: 12/28/18 22:32 Dose: 10 mg Ferrous Sulfate (Feosol -) 325 mg PO BIDWM [facility] Last Admin: 12/28/18 17:47 Dose: 325 mg Hydromorphone HCl (Dilaudid -) 2 mg PO Q6H PRN PRN Reason: PAIN LEVEL 7 - 10 Last Admin: 12/29/18 06:57 Dose: 2 mg Meropenem 1 gm/ Dextrose 100 mls @ 200 mls/hr IVPB Q8H-IV [facility] Last Admin: 12/29/18 01:24 Dose: 200 mls/hr Sodium Chloride (1/2 Normal Saline) 1,000 mls @ 40 mls/hr IV ASDIR [facility] Last Admin: 12/28/18 14:51 Dose: 40 mls/hr Insulin Aspart (Novolog Vial Sliding Scale -) 1 vial SQ ACHS [facility]; Protocol Last Admin: 12/29/18 06:52 Dose: Not Given Levothyroxine Sodium (Synthroid -) 75 mcg PO DAILY@0600 [facility] Last Admin: 12/29/18 06:51 Dose: 75 mcg Pramipexole Dihydrochloride (Mirapex -) 0.25 mg PO TID [facility] Last Admin: 12/29/18 06:52 Dose: 0.25 mg Silver Sulfadiazine (Silvadene -) 1 applic TP BID [facility] Last Admin: 12/28/18 22:32 Dose: 1 applic Venlafaxine HCl (Effexor Xr -) 75 mg PO DAILY@0600 [facility] Last Admin: 12/29/18 06:52 Dose: 75 mg - Objective Vital Signs: Vital Signs Temperature 97.9 F 12/29/18 06:00 Pulse Rate 99 H 12/29/18 06:46 Respiratory Rate 18 12/29/18 06:00 Blood Pressure 91/57 L 12/29/18 06:00 O2 Sat by Pulse Oximetry (%) 100 12/29/18 06:46 Constitutional: Yes: Mild Distress Cardiovascular: Yes: Regular Rate and Rhythm Respiratory: Yes: Diminished, Wheezes, Other (TRACHEOSTOMY) Gastrointestinal: Yes: Soft Genitourinary: Yes: Titus Present Musculoskeletal: Yes: Muscle Weakness Extremities: Yes: Other Integumentary: Yes: Rash, Skin Tear Wound/Incision: Yes: Open to air Neurological: Yes: Pre-Existing Deficit Psychiatric: Yes: Other (ANXIOUS) Labs: CBC, BMP 12/28/18 06:30 12/28/18 06:30 INR, PTT INR 1.77 (0.83-1.09) H 12/27/18 11:30 Problem List - Problems (1) Afib Code(s): I48.91 - UNSPECIFIED ATRIAL FIBRILLATION (2) Anxiety Code(s): F41.9 - ANXIETY DISORDER, UNSPECIFIED (3) Change in mental state Code(s): R41.82 - ALTERED MENTAL STATUS, UNSPECIFIED Qualifiers: Altered mental status type: unspecified Qualified Code(s): R41.82 - Altered mental status, unspecified (4) UTI (urinary tract infection) Code(s): N39.0 - URINARY TRACT INFECTION, SITE NOT SPECIFIED Qualifiers: Urinary tract infection type: acute cystitis Hematuria presence: without hematuria Qualified Code(s): N30.00 - Acute cystitis without hematuria (5) Diabetes mellitus, insulin dependent (IDDM), uncontrolled Code(s): E10.65 - TYPE 1 DIABETES MELLITUS WITH HYPERGLYCEMIA Qualifiers: Glycemic state: with hyperglycemia Qualified Code(s): E10.65 - Type 1 diabetes mellitus with hyperglycemia (6) HTN (hypertension) Code(s): I10 - ESSENTIAL (PRIMARY) HYPERTENSION Qualifiers: Hypertension type: unspecified Qualified Code(s): I10 - Essential (primary ) hypertension (7) Acute and chronic respiratory failure with hypoxia Code(s): J96.21 - ACUTE AND CHRONIC RESPIRATORY FAILURE WITH HYPOXIA (8) Anemia Code(s): D64.9 - ANEMIA, UNSPECIFIED (9) Bipolar 1 disorder Code(s): F31.9 - BIPOLAR DISORDER, UNSPECIFIED (10) Hypothyroid Code(s): E03.9 - HYPOTHYROIDISM, UNSPECIFIED Qualifiers: (11) Somatic complaints, multiple Code(s): R68.89 - OTHER GENERAL SYMPTOMS AND SIGNS (12) Chronic back pain Code(s): M54.9 - DORSALGIA, UNSPECIFIED; G89.29 - OTHER CHRONIC PAIN (13) Chronic pain disorder Code(s): G89.4 - CHRONIC PAIN SYNDROME (14) Depression with anxiety Code(s): F41.8 - OTHER SPECIFIED ANXIETY DISORDERS (15) Skin tear Assessment/Plan: SKIN FOLD TEAR TO ABDOMEN/LEFT SIDE SMALL STAGE 1 Code(s): [id number] - Assessment/Plan ADDING NYSTATIN POWDER AND CLOTRIAMAZOLE CREAM CONTINUE MERIPENAM IV ID F/U PSYCH EVAL APPRECIATED ADDING BUSPAR 10MG BID NEBS/PULM EVAL AND SUPPORT RENAL WORKUP
[2018-12-29] MEDS: FERROUS SO4 325 MG TABLET (FP) PO SCH ×2 (09:55→16:47)
[2018-12-29] MEDS: APIXABAN 5 MG TABLET PO SCH ×2 (09:55→21:26)
[2018-12-29] MEDS: busPIRone HCL 10 MG TABLET (FP) PO SCH ×2 (09:56→21:26)
[2018-12-29] MEDS: ALPRAZolam 0.25 MG TABLET PO PRN ×2 (09:56→21:28)
[2018-12-29] MEDS: diphenhydrAMINE HCL 25 MG CAPSULE (FP) PO PRN (10:32)
[2018-12-29] MEDS: NYSTATIN POWDER 100,000 UNITS/GM - 15 GM TOPICAL POWDER TP SCH (10:33)
[2018-12-29] MEDS: CLOTRIMAZOLE 1% CREAM 15 GM TUBE TP SCH ×2 (10:33→21:27)
[2018-12-29] MEDS: SILVER SULFADIAZINE 1% TOP CREAM 50 GM JAR TP SCH (10:34)
--- NOTE | 2018-12-29 12:30 | PN ---
Progress Note, Physician History of Present Illness: AWAKE , ALERT C/O DIARRHEA, BUT NURSE REPORTS ONLY 2 SOFT BMS AFEBRILE WBC IMPROVED - Current Medication List Current Medications: Active Medications Acetaminophen (Tylenol -) 650 mg PO Q6HPO PRN PRN Reason: FEVER Last Admin: 12/28/18 15:04 Dose: 650 mg Albuterol/Ipratropium (Duoneb -) 1 amp NEB RTID [facility] Last Admin: 12/29/18 07:35 Dose: 1 amp Alprazolam (Xanax -) 0.25 mg PO Q8H PRN PRN Reason: ANXIETY Last Admin: 12/29/18 09:56 Dose: 0.25 mg Apixaban (Eliquis -) 5 mg PO BID [facility] Last Admin: 12/29/18 09:55 Dose: 5 mg Buspirone HCl (Buspar -) 10 mg PO BID [facility] Last Admin: 12/29/18 09:56 Dose: 10 mg Clotrimazole (Lotrimin 1% Cream -) 1 applic TP BID [facility] Last Admin: 12/29/18 10:33 Dose: 1 applic Diphenhydramine HCl (Benadryl -) 25 mg PO Q6H PRN PRN Reason: FOR ITCHING Last Admin: 12/29/18 10:32 Dose: 25 mg Ferrous Sulfate (Feosol -) 325 mg PO BIDWM [facility] Last Admin: 12/29/18 09:55 Dose: 325 mg Hydromorphone HCl (Dilaudid -) 2 mg PO Q6H PRN PRN Reason: PAIN LEVEL 7 - 10 Last Admin: 12/29/18 06:57 Dose: 2 mg Meropenem 1 gm/ Dextrose 100 mls @ 200 mls/hr IVPB Q8H-IV [facility] Last Admin: 12/29/18 09:44 Dose: 200 mls/hr Sodium Chloride (1/2 Normal Saline) 1,000 mls @ 40 mls/hr IV ASDIR [facility] Last Admin: 12/28/18 14:51 Dose: 40 mls/hr Insulin Aspart (Novolog Vial Sliding Scale -) 1 vial SQ ACHS [facility]; Protocol Last Admin: 12/29/18 11:29 Dose: Not Given Levothyroxine Sodium (Synthroid -) 75 mcg PO DAILY@0600 [facility] Last Admin: 12/29/18 06:51 Dose: 75 mcg Nystatin (Nystop Powder -) 1 applic TP DAILY [facility] Last Admin: 12/29/18 10:33 Dose: 1 applic Pramipexole Dihydrochloride (Mirapex -) 0.25 mg PO TID [facility] Last Admin: 12/29/18 06:52 Dose: 0.25 mg Silver Sulfadiazine (Silvadene -) 1 applic TP BID [facility] Last Admin: 12/29/18 10:34 Dose: Not Given Venlafaxine HCl (Effexor Xr -) 75 mg PO DAILY@0600 [facility] Last Admin: 12/29/18 06:52 Dose: 75 mg - Objective Vital Signs: Vital Signs Temperature 97.9 F 12/29/18 06:00 Pulse Rate 99 H 12/29/18 06:46 Respiratory Rate 18 12/29/18 06:00 Blood Pressure 91/57 L 12/29/18 06:00 O2 Sat by Pulse Oximetry (%) 100 12/29/18 06:46 Constitutional: Yes: No Distress Eyes: Yes: Conjunctiva Clear Cardiovascular: Yes: Regular Rate and Rhythm, S1, S3 Respiratory: Yes: Diminished Gastrointestinal: Yes: Normal Bowel Sounds, Soft. No: Tenderness Edema: No Labs: CBC, BMP 12/28/18 06:30 12/28/18 06:30 INR, PTT INR 1.77 (0.83-1.09) H 12/27/18 11:30 Assessment/Plan UTI R/O SEPSIS SECONDARY TO UTI HX ESBL CONTINUE MEROPENEM
--- NOTE | 2018-12-29 13:45 | PN ---
Progress Note, Physician History of Present Illness: Pt seen and examined at bedside. She is awake and alert. - Current Medication List Current Medications: Active Medications Acetaminophen (Tylenol -) 650 mg PO Q6HPO PRN PRN Reason: FEVER Last Admin: 12/28/18 15:04 Dose: 650 mg Albuterol/Ipratropium (Duoneb -) 1 amp NEB RTID [facility] Last Admin: 12/29/18 07:35 Dose: 1 amp Alprazolam (Xanax -) 0.25 mg PO Q8H PRN PRN Reason: ANXIETY Last Admin: 12/29/18 09:56 Dose: 0.25 mg Apixaban (Eliquis -) 5 mg PO BID [facility] Last Admin: 12/29/18 09:55 Dose: 5 mg Buspirone HCl (Buspar -) 10 mg PO BID [facility] Last Admin: 12/29/18 09:56 Dose: 10 mg Clotrimazole (Lotrimin 1% Cream -) 1 applic TP BID [facility] Last Admin: 12/29/18 10:33 Dose: 1 applic Diphenhydramine HCl (Benadryl -) 25 mg PO Q6H PRN PRN Reason: FOR ITCHING Last Admin: 12/29/18 10:32 Dose: 25 mg Ferrous Sulfate (Feosol -) 325 mg PO BIDWM [facility] Last Admin: 12/29/18 09:55 Dose: 325 mg Hydromorphone HCl (Dilaudid -) 2 mg PO Q6H PRN PRN Reason: PAIN LEVEL 7 - 10 Last Admin: 12/29/18 12:44 Dose: 2 mg Meropenem 1 gm/ Dextrose 100 mls @ 200 mls/hr IVPB Q8H-IV [facility] Last Admin: 12/29/18 09:44 Dose: 200 mls/hr Sodium Chloride (1/2 Normal Saline) 1,000 mls @ 40 mls/hr IV ASDIR [facility] Last Admin: 12/28/18 14:51 Dose: 40 mls/hr Insulin Aspart (Novolog Vial Sliding Scale -) 1 vial SQ ACHS [facility]; Protocol Last Admin: 12/29/18 11:29 Dose: Not Given Levothyroxine Sodium (Synthroid -) 75 mcg PO DAILY@0600 [facility] Last Admin: 12/29/18 06:51 Dose: 75 mcg Nystatin (Nystop Powder -) 1 applic TP DAILY [facility] Last Admin: 12/29/18 10:33 Dose: 1 applic Pramipexole Dihydrochloride (Mirapex -) 0.25 mg PO TID [facility] Last Admin: 12/29/18 06:52 Dose: 0.25 mg Silver Sulfadiazine (Silvadene -) 1 applic TP BID [facility] Last Admin: 12/29/18 10:34 Dose: Not Given Venlafaxine HCl (Effexor Xr -) 75 mg PO DAILY@0600 [facility] Last Admin: 12/29/18 06:52 Dose: 75 mg - Objective Vital Signs: Vital Signs Temperature 97.4 F L 12/29/18 10:00 Pulse Rate 112 H 12/29/18 10:00 Respiratory Rate 20 12/29/18 10:00 Blood Pressure 90/66 12/29/18 10:00 O2 Sat by Pulse Oximetry (%) 98 12/29/18 09:00 Constitutional: Yes: Calm Eyes: Yes: Conjunctiva Clear HENT: Yes: Atraumatic Neck: Yes: Other (trache) Cardiovascular: Yes: S1, S2 Respiratory: Yes: Other (on trache collar) Gastrointestinal: Yes: Soft Genitourinary: Yes: WNL Musculoskeletal: Yes: WNL Edema: No Integumentary: Yes: Tattoos Neurological: Yes: Oriented Psychiatric: Yes: Oriented Labs: CBC, BMP 12/28/18 06:30 12/28/18 06:30 INR, PTT INR 1.77 (0.83-1.09) H 12/27/18 11:30 Problem List - Problems (1) Change in mental state Code(s): R41.82 - ALTERED MENTAL STATUS, UNSPECIFIED Qualifiers: Altered mental status type: unspecified Qualified Code(s): R41.82 - Altered mental status, unspecified (2) UTI (urinary tract infection) Code(s): N39.0 - URINARY TRACT INFECTION, SITE NOT SPECIFIED Qualifiers: Urinary tract infection type: acute cystitis Hematuria presence: without hematuria Qualified Code(s): N30.00 - Acute cystitis without hematuria (3) LEEANNA (acute kidney injury) Code(s): N17.9 - ACUTE KIDNEY FAILURE, UNSPECIFIED Assessment/Plan Current Medications Generic Name Dose Route Start Last Admin Trade Name Freq PRN Reason Stop Dose Admin Acetaminophen 650 mg 12/27/18 17:06 12/28/18 15:04 Tylenol - PO 650 mg Q6HPO PRN Administration FEVER Albuterol/Ipratropium 1 amp 12/27/18 20:00 12/29/18 07:35 Duoneb - NEB 1 amp RTID [facility] Administration Alprazolam 0.25 mg 12/27/18 16:58 12/29/18 09:56 Xanax - PO 0.25 mg Q8H PRN Administration ANXIETY Apixaban 5 mg 12/27/18 22:00 12/29/18 09:55 Eliquis - PO 5 mg BID [facility] Administration Buspirone HCl 10 mg 12/28/18 22:00 12/29/18 09:56 Buspar - PO 10 mg BID [facility] Administration Clotrimazole 1 applic 12/29/18 10:00 12/29/18 10:33 Lotrimin 1% Cream - TP 1 applic BID [facility] Administration Diphenhydramine HCl 25 mg 12/29/18 09:27 12/29/18 10:32 Benadryl - PO 25 mg Q6H PRN Administration FOR ITCHING Ferrous Sulfate 325 mg 12/27/18 17:30 12/29/18 09:55 Feosol - PO 325 mg BIDWM [facility] Administration Hydromorphone HCl 2 mg 12/27/18 17:03 12/29/18 12:44 Dilaudid - PO 2 mg Q6H PRN Administration PAIN LEVEL 7 - 10 Meropenem 1 gm/ Dextrose 100 mls @ 200 mls/hr 12/28/18 13:00 12/29/18 09:44 IVPB 200 mls/hr Q8H-IV [facility] Administration Sodium Chloride 1,000 mls @ 40 mls/hr 12/28/18 14:30 12/28/18 14:51 1/2 Normal Saline IV 40 mls/hr ASDIR [facility] Administration Insulin Aspart 1 vial 12/27/18 22:00 12/29/18 11:29 Novolog Vial Sliding Scale - SQ Not Given ACHS [facility] Protocol Levothyroxine Sodium 75 mcg 12/28/18 06:00 12/29/18 06:51 Synthroid - PO 75 mcg DAILY@0600 [facility] Administration Nystatin 1 applic 12/29/18 10:00 12/29/18 10:33 Nystop Powder - TP 1 applic DAILY [facility] Administration Pramipexole Dihydrochloride 0.25 mg 12/27/18 22:00 12/29/18 06:52 Mirapex - PO 0.25 mg TID [facility] Administration Silver Sulfadiazine 1 applic 12/28/18 10:00 12/29/18 10:34 Silvadene - TP Not Given BID [facility] Venlafaxine HCl 75 mg 12/28/18 06:00 12/29/18 06:52 Effexor Xr - PO 75 mg DAILY@0600 [facility] Administration Microbiology 12/28/18 02:00 Urine - Urine - Catheterized Urine Culture - Final NO GROWTH OBTAINED 12/27/18 11:30 Blood - Peripheral Venous Blood Culture - Preliminary NO GROWTH OBTAINED AFTER 48 HOURS, INCUBATION TO CONTINUE FOR 3 DAYS. 12/27/18 11:30 Blood - Peripheral Venous Blood Culture - Preliminary NO GROWTH OBTAINED AFTER 48 HOURS, INCUBATION TO CONTINUE FOR 3 DAYS. Impression 1. leeanna 2. mild lactic acidosis 3. resp failure 4. asthma 5. copd 6. htn 7. a-fib 8. metabolic acidosis 9. leukocytosis 10. UTI Plan - check bmp - abx per ID - encourage PO intake - cont to follow cultures
[2018-12-29] MEDS: SODIUM CHLORIDE 0.45% 1,000 ML IV SCH (14:02)
--- NOTE | 2018-12-29 14:05 | PN ---
Progress Note, Physician History of Present Illness: PULMONARY ALERT,NO DISTRESS,-SOB - Current Medication List Current Medications: Active Medications Acetaminophen (Tylenol -) 650 mg PO Q6HPO PRN PRN Reason: FEVER Last Admin: 12/28/18 15:04 Dose: 650 mg Albuterol/Ipratropium (Duoneb -) [address] [facility] Last Admin: 12/29/18 13:56 Dose: 1 amp Alprazolam (Xanax -) 0.25 mg PO Q8H PRN PRN Reason: ANXIETY Last Admin: 12/29/18 09:56 Dose: 0.25 mg Apixaban (Eliquis -) [address] [facility] Last Admin: 12/29/18 09:55 Dose: 5 mg Buspirone HCl (Buspar -) [address] [facility] Last Admin: 12/29/18 09:56 Dose: 10 mg Clotrimazole (Lotrimin 1% Cream -) [address] [facility] Last Admin: 12/29/18 10:33 Dose: 1 applic Diphenhydramine HCl (Benadryl -) 25 mg PO Q6H PRN PRN Reason: FOR ITCHING Last Admin: 12/29/18 10:32 Dose: 25 mg Ferrous Sulfate (Feosol -) [address] [facility] Last Admin: 12/29/18 09:55 Dose: 325 mg Hydromorphone HCl (Dilaudid -) 2 mg PO Q6H PRN PRN Reason: PAIN LEVEL 7 - 10 Last Admin: 12/29/18 12:44 Dose: 2 mg Meropenem 1 gm/ Dextrose 100 mls @ 200 mls/hr IVPB Q8H-IV [facility] Last Admin: 12/29/18 09:44 Dose: 200 mls/hr Sodium Chloride (1/2 Normal Saline) 1,000 mls @ 40 mls/hr IV ASDIR [facility] Last Admin: 12/28/18 14:51 Dose: 40 mls/hr Insulin Aspart (Novolog Vial Sliding Scale -) [address] [facility]; Protocol Last Admin: 12/29/18 11:29 Dose: Not Given Levothyroxine Sodium (Synthroid -) 75 mcg PO DAILY@0600 [facility] Last Admin: 12/29/18 06:51 Dose: 75 mcg Nystatin (Nystop Powder -) [address] [facility] Last Admin: 12/29/18 10:33 Dose: 1 applic Pramipexole Dihydrochloride (Mirapex -) 0.[address] [facility] Last Admin: 12/29/18 06:52 Dose: 0.25 mg Silver Sulfadiazine (Silvadene -) [address] [facility] Last Admin: 12/29/18 10:34 Dose: Not Given Venlafaxine HCl (Effexor Xr -) 75 mg PO DAILY@0600 [facility] Last Admin: 12/29/18 06:52 Dose: 75 mg - Objective Vital Signs: Vital Signs Temperature 97.4 F L 12/29/18 10:00 Pulse Rate 112 H 12/29/18 10:00 Respiratory Rate 20 12/29/18 10:00 Blood Pressure 90/66 12/29/18 10:00 O2 Sat by Pulse Oximetry (%) 98 12/29/18 09:00 Constitutional: Yes: Well Nourished, Calm Eyes: Yes: WNL HENT: Yes: WNL Neck: Yes: Supple (TRACH) Cardiovascular: Yes: Pulse Irregular, S1, S2 Respiratory: Yes: CTA Bilaterally Gastrointestinal: Yes: Normal Bowel Sounds, Soft Extremities: Yes: WNL Edema: No Labs: CBC, BMP 12/28/18 06:30 Assessment/Plan Problem List - Problems (1) Afib Code(s): I48.91 - UNSPECIFIED ATRIAL FIBRILLATION (2) Anxiety Code(s): F41.9 - ANXIETY DISORDER, UNSPECIFIED (3) Change in mental state Code(s): R41.82 - ALTERED MENTAL STATUS, UNSPECIFIED Qualifiers: Altered mental status type: unspecified Qualified Code(s): R41.82 - Altered mental status, unspecified (4) UTI (urinary tract infection) Code(s): N39.0 - URINARY TRACT INFECTION, SITE NOT SPECIFIED Qualifiers: Urinary tract infection type: acute cystitis Hematuria presence: without hematuria Qualified Code(s): N30.00 - Acute cystitis without hematuria (5) Diabetes mellitus, insulin dependent (IDDM), uncontrolled Code(s): E10.65 - TYPE 1 DIABETES MELLITUS WITH HYPERGLYCEMIA Qualifiers: Glycemic state: with hyperglycemia Qualified Code(s): E10.65 - Type 1 diabetes mellitus with hyperglycemia (6) HTN (hypertension) Code(s): I10 - ESSENTIAL (PRIMARY) HYPERTENSION Qualifiers: Hypertension type: unspecified Qualified Code(s): I10 - Essential (primary ) hypertension (7) Chronic respiratory failure Code(s): J96.10 - CHRONIC RESPIRATORY FAILURE, UNSP W HYPOXIA OR HYPERCAPNIA (8) Diabetes Code(s): E11.9 - TYPE 2 DIABETES MELLITUS WITHOUT COMPLICATIONS (9) Hypothyroid Code(s): E03.9 - HYPOTHYROIDISM, UNSPECIFIED Qualifiers: (10) Insomnia disorder Code(s): G47.00 - INSOMNIA, UNSPECIFIED (11) Lethargy Code(s): R53.83 - OTHER FATIGUE (12) Afib Code(s): I48.91 - UNSPECIFIED ATRIAL FIBRILLATION (13) Asthma Code(s): J45.909 - UNSPECIFIED ASTHMA, UNCOMPLICATED (14) COPD (chronic obstructive pulmonary disease) Code(s): J44.9 - CHRONIC OBSTRUCTIVE PULMONARY DISEASE, UNSPECIFIED (15) Chronic back pain Code(s): M54.9 - DORSALGIA, UNSPECIFIED; G89.29 - OTHER CHRONIC PAIN (16) Constipation Code(s): K59.00 - CONSTIPATION, UNSPECIFIED Qualifiers: Constipation type: unspecified constipation type Qualified Code(s): K59.00 - Constipation, unspecified (17) Depression with anxiety Code(s): F41.8 - OTHER SPECIFIED ANXIETY DISORDERS (18) Neuropathy Code(s): G62.9 - POLYNEUROPATHY, UNSPECIFIED Assessment/Plan Trach collar O@ as needed ABX per ID Aspiration precautions BD TX PRN No indication for steroids DR RUFFIN
[2018-12-30] MEDS: MEROPENEM 1 GM in DEXTROSE 5%-WATER 100 ML IVPB SCH ×3 (02:25→17:56)
[2018-12-30] MEDS ORDERED: PT OWN MED DRAWER 7, Y5N ONE ×3 (03:22→23:01)
[2018-12-30] MEDS: HYDROmorphone HCL 2 MG TABLET PO PRN ×3 (03:25→17:07)
[2018-12-30] MEDS: PRAMIPEXOLE DIHYDROCHLORIDE 0.25 MG TABLET PO SCH ×3 (06:17→22:23)
[2018-12-30] MEDS: VENLAFAXINE HCL 75 MG E.R. CAPSULES (FP) PO SCH (06:17)
[2018-12-30] MEDS: LEVOTHYROXINE NA 75 MCG TABLET (FP) PO SCH (06:18)
[2018-12-30] MEDS: INSULIN SLIDING SCALE (NOVOLOG) 1 VIAL SQ SCH ×4 (06:18→22:23)
[2018-12-30] MEDS: ALBUTEROL SO4 2.5/IPRATROPIUM 0.5 INH SOL 3 ML VIAL.NEB. NEB SCH ×3 (08:03→20:22)
[2018-12-30] MEDS: ALPRAZolam 0.25 MG TABLET PO PRN ×2 (09:50→22:22)
[2018-12-30] MEDS: FERROUS SO4 325 MG TABLET (FP) PO SCH ×2 (09:50→17:02)
[2018-12-30] MEDS: CLOTRIMAZOLE 1% CREAM 15 GM TUBE TP SCH ×2 (09:51→22:23)
[2018-12-30] MEDS: busPIRone HCL 10 MG TABLET (FP) PO SCH ×2 (09:51→22:22)
[2018-12-30] MEDS: NYSTATIN POWDER 100,000 UNITS/GM - 15 GM TOPICAL POWDER TP SCH (09:51)
[2018-12-30] MEDS: APIXABAN 5 MG TABLET PO SCH ×2 (09:51→22:23)
--- NOTE | 2018-12-30 11:08 | PN ---
Progress Note (short form) - Note Progress Note: Resting in NAD. Breathing feels OK. Intake & Output 12/27/18 12/28/18 12/29/18 12/30/18 23:59 23:59 23:59 23:59 Intake Total 950 1730 320 Output Total 318 975 3562 400 Balance -115 700 730 -80 Weight 1184 lb 118 lb Last Vital Signs Temp Pulse Resp BP Pulse Ox 98.1 F 111 H 18 91/60 98 12/30/18 06:00 12/30/18 08:02 12/30/18 06:00 12/30/18 06:00 12/30/18 08:02 Active Medications Acetaminophen (Tylenol -) 650 mg PO Q6HPO PRN PRN Reason: FEVER Last Admin: 12/28/18 15:04 Dose: 650 mg Albuterol/Ipratropium (Duoneb -) 1 amp NEB RTID [facility] Last Admin: 12/30/18 08:03 Dose: 1 amp Alprazolam (Xanax -) 0.25 mg PO Q8H PRN PRN Reason: ANXIETY Last Admin: 12/30/18 09:50 Dose: 0.25 mg Apixaban (Eliquis -) 5 mg PO BID [facility] Last Admin: 12/30/18 09:51 Dose: 5 mg Buspirone HCl (Buspar -) 10 mg PO BID [facility] Last Admin: 12/30/18 09:51 Dose: 10 mg Clotrimazole (Lotrimin 1% Cream -) 1 applic TP BID [facility] Last Admin: 12/30/18 09:51 Dose: 1 applic Diphenhydramine HCl (Benadryl -) 25 mg PO Q6H PRN PRN Reason: FOR ITCHING Last Admin: 12/29/18 10:32 Dose: 25 mg Ferrous Sulfate (Feosol -) 325 mg PO BIDWM [facility] Last Admin: 12/30/18 09:50 Dose: 325 mg Hydromorphone HCl (Dilaudid -) 2 mg PO Q6H PRN PRN Reason: PAIN LEVEL 7 - 10 Last Admin: 12/30/18 09:50 Dose: 2 mg Meropenem 1 gm/ Dextrose 100 mls @ 200 mls/hr IVPB Q8H-IV [facility] Last Admin: 12/30/18 02:25 Dose: 200 mls/hr Sodium Chloride (1/2 Normal Saline) 1,000 mls @ 40 mls/hr IV ASDIR [facility] Last Admin: 12/29/18 14:02 Dose: 40 mls/hr Insulin Aspart (Novolog Vial Sliding Scale -) 1 vial SQ ACHS [facility]; Protocol Last Admin: 12/30/18 06:18 Dose: Not Given Levothyroxine Sodium (Synthroid -) 75 mcg PO DAILY@0600 [facility] Last Admin: 12/30/18 06:18 Dose: 75 mcg Nystatin (Nystop Powder -) 1 applic TP DAILY [facility] Last Admin: 12/30/18 09:51 Dose: 1 applic Pramipexole Dihydrochloride (Mirapex -) 0.25 mg PO TID [facility] Last Admin: 12/30/18 06:17 Dose: 0.25 mg Venlafaxine HCl (Effexor Xr -) 75 mg PO DAILY@0600 [facility] Last Admin: 12/30/18 06:17 Dose: 75 mg Constitutional: Yes: No Distress Eyes: Yes: Conjunctiva Clear, EOM Intact HENT: Yes: Atraumatic, Normocephalic Neck: Yes: Supple, Trachea Midline, Other (Trach intact ) Cardiovascular: Yes: Pulse Irregular Respiratory: Yes: Cough, Diminished, Other (Trach ). No: Accessory Muscle Use, Rales, Rhonchi, SOB, SOB on Exertion, Stridor, Tachypnea, Wheezes ...Inspection: Yes: WNL ...Clubbing: No Gastrointestinal: Yes: Normal Bowel Sounds, Soft Musculoskeletal: Yes: WNL Extremities: Yes: Shortened Edema: No Peripheral Pulses WNL: Yes Integumentary: Yes: WNL Neurological: Yes: Confusion Psychiatric: Yes: Other (Confusion ) Labs: Laboratory Results - last 24 hr 12/29/18 12/29/18 12/29/18 11:22 16:24 21:37 POC Glucometer 112 94 48 12/30/18 06:15 POC Glucometer 91 Problem List - Problems (1) Afib Code(s): I48.91 - UNSPECIFIED ATRIAL FIBRILLATION (2) Anxiety Code(s): F41.9 - ANXIETY DISORDER, UNSPECIFIED (3) Change in mental state Code(s): R41.82 - ALTERED MENTAL STATUS, UNSPECIFIED Qualifiers: Altered mental status type: unspecified Qualified Code(s): R41.82 - Altered mental status, unspecified (4) UTI (urinary tract infection) Code(s): N39.0 - URINARY TRACT INFECTION, SITE NOT SPECIFIED Qualifiers: Urinary tract infection type: acute cystitis Hematuria presence: without hematuria Qualified Code(s): N30.00 - Acute cystitis without hematuria (5) Diabetes mellitus, insulin dependent (IDDM), uncontrolled Code(s): E10.65 - TYPE 1 DIABETES MELLITUS WITH HYPERGLYCEMIA Qualifiers: Glycemic state: with hyperglycemia Qualified Code(s): E10.65 - Type 1 diabetes mellitus with hyperglycemia (6) HTN (hypertension) Code(s): I10 - ESSENTIAL (PRIMARY) HYPERTENSION Qualifiers: Hypertension type: unspecified Qualified Code(s): I10 - Essential (primary ) hypertension (7) Chronic respiratory failure Code(s): J96.10 - CHRONIC RESPIRATORY FAILURE, UNSP W HYPOXIA OR HYPERCAPNIA (8) Diabetes Code(s): E11.9 - TYPE 2 DIABETES MELLITUS WITHOUT COMPLICATIONS (9) Hypothyroid Code(s): E03.9 - HYPOTHYROIDISM, UNSPECIFIED Qualifiers: (10) Insomnia disorder Code(s): G47.00 - INSOMNIA, UNSPECIFIED (11) Lethargy Code(s): R53.83 - OTHER FATIGUE (12) Afib Code(s): I48.91 - UNSPECIFIED ATRIAL FIBRILLATION (13) Asthma Code(s): J45.909 - UNSPECIFIED ASTHMA, UNCOMPLICATED (14) COPD (chronic obstructive pulmonary disease) Code(s): J44.9 - CHRONIC OBSTRUCTIVE PULMONARY DISEASE, UNSPECIFIED (15) Chronic back pain Code(s): M54.9 - DORSALGIA, UNSPECIFIED; G89.29 - OTHER CHRONIC PAIN (16) Constipation Code(s): K59.00 - CONSTIPATION, UNSPECIFIED Qualifiers: Constipation type: unspecified constipation type Qualified Code(s): K59.00 - Constipation, unspecified (17) Depression with anxiety Code(s): F41.8 - OTHER SPECIFIED ANXIETY DISORDERS (18) Neuropathy Code(s): G62.9 - POLYNEUROPATHY, UNSPECIFIED Assessment/Plan Trach collar O2 as needed Do not suspect respiratory tract infection ABX per ID Aspiration precautions BD TX PRN No indication for steroids D/C planning Dr Castaneda Problem List - Problems (1) Afib Code(s): I48.91 - UNSPECIFIED ATRIAL FIBRILLATION (2) Anxiety Code(s): F41.9 - ANXIETY DISORDER, UNSPECIFIED (3) Change in mental state Code(s): R41.82 - ALTERED MENTAL STATUS, UNSPECIFIED Qualifiers: Altered mental status type: unspecified Qualified Code(s): R41.82 - Altered mental status, unspecified (4) UTI (urinary tract infection) Code(s): N39.0 - URINARY TRACT INFECTION, SITE NOT SPECIFIED Qualifiers: Urinary tract infection type: acute cystitis Hematuria presence: without hematuria Qualified Code(s): N30.00 - Acute cystitis without hematuria (5) Diabetes mellitus, insulin dependent (IDDM), uncontrolled Code(s): E10.65 - TYPE 1 DIABETES MELLITUS WITH HYPERGLYCEMIA Qualifiers: Glycemic state: with hyperglycemia Qualified Code(s): E10.65 - Type 1 diabetes mellitus with hyperglycemia (6) HTN (hypertension) Code(s): I10 - ESSENTIAL (PRIMARY) HYPERTENSION Qualifiers: Hypertension type: unspecified Qualified Code(s): I10 - Essential (primary ) hypertension (7) Chronic respiratory failure Code(s): J96.10 - CHRONIC RESPIRATORY FAILURE, UNSP W HYPOXIA OR HYPERCAPNIA (8) Diabetes Code(s): E11.9 - TYPE 2 DIABETES MELLITUS WITHOUT COMPLICATIONS (9) Hypothyroid Code(s): E03.9 - HYPOTHYROIDISM, UNSPECIFIED Qualifiers: (10) Insomnia disorder Code(s): G47.00 - INSOMNIA, UNSPECIFIED (11) Lethargy Code(s): R53.83 - OTHER FATIGUE (12) Afib Code(s): I48.91 - UNSPECIFIED ATRIAL FIBRILLATION (13) Asthma Code(s): J45.909 - UNSPECIFIED ASTHMA, UNCOMPLICATED (14) COPD (chronic obstructive pulmonary disease) Code(s): J44.9 - CHRONIC OBSTRUCTIVE PULMONARY DISEASE, UNSPECIFIED (15) Chronic back pain Code(s): M54.9 - DORSALGIA, UNSPECIFIED; G89.29 - OTHER CHRONIC PAIN (16) Constipation Code(s): K59.00 - CONSTIPATION, UNSPECIFIED Qualifiers: Constipation type: unspecified constipation type Qualified Code(s): K59.00 - Constipation, unspecified (17) Depression with anxiety Code(s): F41.8 - OTHER SPECIFIED ANXIETY DISORDERS (18) Neuropathy Code(s): G62.9 - POLYNEUROPATHY, UNSPECIFIED
--- NOTE | 2018-12-30 15:48 | PN ---
Progress Note, Physician Chief Complaint: patient has loose green stool complaining of leg pain as well - Current Medication List Current Medications: Active Medications Acetaminophen (Tylenol -) 650 mg PO Q6HPO PRN PRN Reason: FEVER Last Admin: 12/28/18 15:04 Dose: 650 mg Albuterol/Ipratropium (Duoneb -) 1 amp NEB RTID [facility] Last Admin: 12/30/18 13:37 Dose: 1 amp Alprazolam (Xanax -) 0.25 mg PO Q8H PRN PRN Reason: ANXIETY Last Admin: 12/30/18 09:50 Dose: 0.25 mg Apixaban (Eliquis -) 5 mg PO BID [facility] Last Admin: 12/30/18 09:51 Dose: 5 mg Buspirone HCl (Buspar -) 10 mg PO BID [facility] Last Admin: 12/30/18 09:51 Dose: 10 mg Clotrimazole (Lotrimin 1% Cream -) 1 applic TP BID [facility] Last Admin: 12/30/18 09:51 Dose: 1 applic Diphenhydramine HCl (Benadryl -) 25 mg PO Q6H PRN PRN Reason: FOR ITCHING Last Admin: 12/29/18 10:32 Dose: 25 mg Ferrous Sulfate (Feosol -) 325 mg PO BIDWM [facility] Last Admin: 12/30/18 09:50 Dose: 325 mg Hydromorphone HCl (Dilaudid -) 2 mg PO Q6H PRN PRN Reason: PAIN LEVEL 7 - 10 Last Admin: 12/30/18 09:50 Dose: 2 mg Meropenem 1 gm/ Dextrose 100 mls @ 200 mls/hr IVPB Q8H-IV [facility] Last Admin: 12/30/18 13:13 Dose: Not Given Sodium Chloride (1/2 Normal Saline) 1,000 mls @ 40 mls/hr IV ASDIR [facility] Last Admin: 12/29/18 14:02 Dose: 40 mls/hr Insulin Aspart (Novolog Vial Sliding Scale -) 1 vial SQ ACHS [facility]; Protocol Last Admin: 12/30/18 13:18 Dose: Not Given Levothyroxine Sodium (Synthroid -) 75 mcg PO DAILY@0600 [facility] Last Admin: 12/30/18 06:18 Dose: 75 mcg Nystatin (Nystop Powder -) 1 applic TP DAILY [facility] Last Admin: 12/30/18 09:51 Dose: 1 applic Pramipexole Dihydrochloride (Mirapex -) 0.25 mg PO TID [facility] Last Admin: 12/30/18 13:19 Dose: 0.25 mg Venlafaxine HCl (Effexor Xr -) 75 mg PO DAILY@0600 [facility] Last Admin: 12/30/18 06:17 Dose: 75 mg - Objective Vital Signs: Vital Signs Temperature 98.4 F 12/30/18 13:57 Pulse Rate 118 H 12/30/18 13:57 Respiratory Rate 18 12/30/18 13:57 Blood Pressure 83/67 L 12/30/18 13:57 O2 Sat by Pulse Oximetry (%) 98 12/30/18 09:00 Constitutional: Yes: Anxious, Mild Distress Neck: Yes: Other (trach) Cardiovascular: Yes: Regular Rate and Rhythm, S1, S2 Respiratory: Yes: CTA Bilaterally, Other Gastrointestinal: Yes: Normal Bowel Sounds, Soft Edema: No Neurological: Yes: Alert, Oriented Labs: CBC, BMP 12/28/18 06:30 12/28/18 06:30 INR, PTT INR 1.77 (0.83-1.09) H 12/27/18 11:30 Problem List - Problems (1) Change in mental state Assessment/Plan: mental status much improved cultures negative Microbiology 12/28/18 02:00 Urine - Urine - Catheterized Urine Culture - Final NO GROWTH OBTAINED 12/27/18 11:30 Blood - Peripheral Venous Blood Culture - Preliminary NO GROWTH OBTAINED AFTER 72 HOURS, INCUBATION TO CONTINUE FOR 2 DAYS. 12/27/18 11:30 Blood - Peripheral Venous Blood Culture - Preliminary NO GROWTH OBTAINED AFTER 72 HOURS, INCUBATION TO CONTINUE FOR 2 DAYS. wbc count trending down Code(s): R41.82 - ALTERED MENTAL STATUS, UNSPECIFIED Qualifiers: Altered mental status type: unspecified Qualified Code(s): R41.82 - Altered mental status, unspecified (2) UTI (urinary tract infection) Assessment/Plan: ID eval meropenem cultures negative isolation Code(s): N39.0 - URINARY TRACT INFECTION, SITE NOT SPECIFIED Qualifiers: Urinary tract infection type: acute cystitis Hematuria presence: without hematuria Qualified Code(s): N30.00 - Acute cystitis without hematuria (3) Hypothyroid Assessment/Plan: syntbhroid Code(s): E03.9 - HYPOTHYROIDISM, UNSPECIFIED Qualifiers: (4) Tracheostomy in place Assessment/Plan: pulm trahc collar chronic resp failure nebulizers Code(s): Z93.0 - TRACHEOSTOMY STATUS (5) Diabetes mellitus Assessment/Plan: sliding scale insulin bgm (6) Afib Code(s): I48.91 - UNSPECIFIED ATRIAL FIBRILLATION (7) Anxiety Code(s): F41.9 - ANXIETY DISORDER, UNSPECIFIED Assessment/Plan send stool imodium
--- NOTE | 2018-12-30 16:28 | PN ---
Progress Note, Physician History of Present Illness: Pt seen and examined at bedside. She is awake and appears comfortable. She does not have an IV. - Current Medication List Current Medications: Active Medications Acetaminophen (Tylenol -) 650 mg PO Q6HPO PRN PRN Reason: FEVER Last Admin: 12/28/18 15:04 Dose: 650 mg Albuterol/Ipratropium (Duoneb -) 1 amp NEB RTID [facility] Last Admin: 12/30/18 13:37 Dose: 1 amp Alprazolam (Xanax -) 0.25 mg PO Q8H PRN PRN Reason: ANXIETY Last Admin: 12/30/18 09:50 Dose: 0.25 mg Apixaban (Eliquis -) 5 mg PO BID [facility] Last Admin: 12/30/18 09:51 Dose: 5 mg Buspirone HCl (Buspar -) 10 mg PO BID [facility] Last Admin: 12/30/18 09:51 Dose: 10 mg Clotrimazole (Lotrimin 1% Cream -) 1 applic TP BID [facility] Last Admin: 12/30/18 09:51 Dose: 1 applic Diphenhydramine HCl (Benadryl -) 25 mg PO Q6H PRN PRN Reason: FOR ITCHING Last Admin: 12/29/18 10:32 Dose: 25 mg Ferrous Sulfate (Feosol -) 325 mg PO BIDWM [facility] Last Admin: 12/30/18 09:50 Dose: 325 mg Hydromorphone HCl (Dilaudid -) 2 mg PO Q6H PRN PRN Reason: PAIN LEVEL 7 - 10 Last Admin: 12/30/18 09:50 Dose: 2 mg Meropenem 1 gm/ Dextrose 100 mls @ 200 mls/hr IVPB Q8H-IV [facility] Last Admin: 12/30/18 13:13 Dose: Not Given Sodium Chloride (1/2 Normal Saline) 1,000 mls @ 40 mls/hr IV ASDIR [facility] Last Admin: 12/29/18 14:02 Dose: 40 mls/hr Insulin Aspart (Novolog Vial Sliding Scale -) 1 vial SQ ACHS [facility]; Protocol Last Admin: 12/30/18 13:18 Dose: Not Given Levothyroxine Sodium (Synthroid -) 75 mcg PO DAILY@0600 [facility] Last Admin: 02/07/19 06:18 Dose: 75 mcg Loperamide HCl (Imodium -) 2 mg PO Q8H PRN PRN Reason: DIARRHEA Nystatin (Nystop Powder -) 1 applic TP DAILY [facility] Last Admin: 12/30/18 09:51 Dose: 1 applic Pramipexole Dihydrochloride (Mirapex -) 0.25 mg PO TID [facility] Last Admin: 12/30/18 13:19 Dose: 0.25 mg Venlafaxine HCl (Effexor Xr -) 75 mg PO DAILY@0600 [facility] Last Admin: 12/30/18 06:17 Dose: 75 mg - Objective Vital Signs: Vital Signs Temperature 98.4 F 12/30/18 13:57 Pulse Rate 118 H 12/30/18 13:57 Respiratory Rate 18 12/30/18 13:57 Blood Pressure 83/67 L 12/30/18 13:57 O2 Sat by Pulse Oximetry (%) 98 12/30/18 09:00 Constitutional: Yes: Calm Eyes: Yes: Conjunctiva Clear HENT: Yes: Atraumatic Cardiovascular: Yes: S1, S2 Respiratory: Yes: Other (trache collar) Gastrointestinal: Yes: Soft Genitourinary: Yes: WNL Extremities: Yes: WNL Edema: No Integumentary: Yes: Tattoos Neurological: Yes: Oriented Psychiatric: Yes: Oriented Labs: CBC, BMP 12/28/18 06:30 12/28/18 06:30 INR, PTT INR 1.77 (0.83-1.09) H 12/27/18 11:30 Problem List - Problems (1) Change in mental state Code(s): R41.82 - ALTERED MENTAL STATUS, UNSPECIFIED Qualifiers: Altered mental status type: unspecified Qualified Code(s): R41.82 - Altered mental status, unspecified (2) UTI (urinary tract infection) Code(s): N39.0 - URINARY TRACT INFECTION, SITE NOT SPECIFIED Qualifiers: Urinary tract infection type: acute cystitis Hematuria presence: without hematuria Qualified Code(s): N30.00 - Acute cystitis without hematuria (3) LEEANNA (acute kidney injury) Code(s): N17.9 - ACUTE KIDNEY FAILURE, UNSPECIFIED Assessment/Plan Current Medications Generic Name Dose Route Start Last Admin Trade Name Freq PRN Reason Stop Dose Admin Acetaminophen 650 mg 12/27/18 17:06 12/28/18 15:04 Tylenol - PO 650 mg Q6HPO PRN Administration FEVER Albuterol/Ipratropium 1 amp 12/27/18 20:00 12/30/18 13:37 Duoneb - NEB 1 amp RTID EMMY Administration Alprazolam 0.25 mg 12/27/18 16:58 12/30/18 09:50 Xanax - PO 0.25 mg Q8H PRN Administration ANXIETY Apixaban 5 mg 12/27/18 22:00 12/30/18 09:51 Eliquis - PO 5 mg BID EMMY Administration Buspirone HCl 10 mg 12/28/18 22:00 12/30/18 09:51 Buspar - PO 10 mg BID EMMY Administration Clotrimazole 1 applic 12/29/18 10:00 12/30/18 09:51 Lotrimin 1% Cream - TP 1 applic BID EMMY Administration Diphenhydramine HCl 25 mg 12/29/18 09:27 12/29/18 10:32 Benadryl - PO 25 mg Q6H PRN Administration FOR ITCHING Ferrous Sulfate 325 mg 12/27/18 17:30 12/30/18 09:50 Feosol - PO 325 mg BIDWM EMMY Administration Hydromorphone HCl 2 mg 12/27/18 17:03 12/30/18 09:50 Dilaudid - PO 2 mg Q6H PRN Administration PAIN LEVEL 7 - 10 Meropenem 1 gm/ Dextrose 100 mls @ 200 mls/hr 12/28/18 13:00 12/30/18 13:13 IVPB Not Given Q8H-IV EMMY Sodium Chloride 1,000 mls @ 40 mls/hr 12/28/18 14:30 12/29/18 14:02 1/2 Normal Saline IV 40 mls/hr ASDIR EMMY Administration Insulin Aspart 1 vial 12/27/18 22:00 12/30/18 13:18 Novolog Vial Sliding Scale - SQ Not Given ACHS [facility] Protocol Levothyroxine Sodium 75 mcg 12/28/18 06:00 12/30/18 06:18 Synthroid - PO 75 mcg DAILY@0600 EMMY Administration Loperamide HCl 2 mg 12/30/18 15:53 Imodium - PO Q8H PRN DIARRHEA Nystatin 1 applic 12/29/18 10:00 12/30/18 09:51 Nystop Powder - TP 1 applic DAILY EMMY Administration Pramipexole Dihydrochloride 0.25 mg 12/27/18 22:00 12/30/18 13:19 Mirapex - PO 0.25 mg TID EMMY Administration Venlafaxine HCl 75 mg 12/28/18 06:00 12/30/18 06:17 Effexor Xr - PO 75 mg DAILY@0600 EMMY Administration 12/28/18 02:00 Urine - Urine - Catheterized Urine Culture - Final NO GROWTH OBTAINED 12/27/18 11:30 Blood - Peripheral Venous Blood Culture - Preliminary NO GROWTH OBTAINED AFTER 48 HOURS, INCUBATION TO CONTINUE FOR 3 DAYS. 12/27/18 11:30 Blood - Peripheral Venous Blood Culture - Preliminary NO GROWTH OBTAINED AFTER 48 HOURS, INCUBATION TO CONTINUE FOR 3 DAYS. Impression 1. leeanna 2. mild lactic acidosis 3. resp failure 4. asthma 5. copd 6. htn 7. a-fib 8. metabolic acidosis 9. leukocytosis 10. UTI Plan - will order bmp - pt off of fluids as she does not have an IV - abx per ID - encourage PO fluid intake - cont to follow cultures
[2018-12-30] MEDS: diphenhydrAMINE HCL 25 MG CAPSULE (FP) PO PRN (17:02)
[2018-12-30] MEDS: LOPERAMIDE HCL 2 MG CAPSULE PO PRN (17:02)
[2018-12-30] MEDS: SODIUM CHLORIDE 0.45% 1,000 ML IV SCH ×2 (17:21→17:57)
[2018-12-30] MEDS: ACETAMINOPHEN 325 MG TABLET (FP) PO PRN (22:24)
[2018-12-31] MEDS: HYDROmorphone HCL 2 MG TABLET PO PRN ×3 (00:12→14:25)
[2018-12-31] MEDS: LOPERAMIDE HCL 2 MG CAPSULE PO PRN ×2 (00:12→09:09)
[2018-12-31] MEDS: diphenhydrAMINE HCL 25 MG CAPSULE (FP) PO PRN ×2 (00:12→09:09)
[2018-12-31] MEDS: MEROPENEM 1 GM in DEXTROSE 5%-WATER 100 ML IVPB SCH ×2 (01:25→09:00)
[2018-12-31] MEDS: ACETAMINOPHEN 325 MG TABLET (FP) PO PRN (04:01)
[2018-12-31] MEDS ORDERED: PT OWN MED DRAWER 7, Y5N ONE ×3 (06:23→08:58)
[2018-12-31] MEDS: INSULIN SLIDING SCALE (NOVOLOG) 1 VIAL SQ SCH ×2 (06:29→14:22)
[2018-12-31] MEDS: LEVOTHYROXINE NA 75 MCG TABLET (FP) PO SCH (06:36)
[2018-12-31] MEDS: VENLAFAXINE HCL 75 MG E.R. CAPSULES (FP) PO SCH (06:37)
[2018-12-31] MEDS: PRAMIPEXOLE DIHYDROCHLORIDE 0.25 MG TABLET PO SCH ×2 (06:37→14:23)
[2018-12-31] MEDS ORDERED: INSULIN (NOVOLOG) ASPART 100 UNITS/ML 10ML VIAL ONE (07:06)
[2018-12-31] MEDS ORDERED: INSULIN (LEVEMIR) 100 UNITS/ML UNITS SQ ONE (07:06)
[2018-12-31] MEDS: ALBUTEROL SO4 2.5/IPRATROPIUM 0.5 INH SOL 3 ML VIAL.NEB. NEB SCH ×2 (07:57→13:38)
--- NOTE | 2018-12-31 08:29 | DS ---
Physical Examination Vital Signs: Vital Signs Temperature 97.9 F 12/31/18 06:00 Pulse Rate 105 H 12/31/18 07:43 Respiratory Rate 18 12/31/18 06:00 Blood Pressure 98/57 L 12/31/18 06:00 O2 Sat by Pulse Oximetry (%) 99 12/31/18 07:43 Findings/Remarks: COMPLETED ABX, NO ACUTE DISTRESS Constitutional: Yes: No Distress Eyes: Yes: WNL HENT: Yes: WNL Neck: Yes: WNL Cardiovascular: Yes: Regular Rate and Rhythm Respiratory: Yes: Other (TRACHEOSTOMY) Gastrointestinal: Yes: Normal Bowel Sounds, Soft Renal/: Yes: Other Musculoskeletal: Yes: Muscle Weakness Extremities: Yes: Other Edema: No Integumentary: Yes: Other Wound/Incision: Yes: Other Neurological: Yes: Pre-Existing Deficit ...Motor Strength: LLE, RLE Psychiatric: Yes: Other Labs: CBC, BMP 12/28/18 06:30 12/28/18 06:30 Discharge Summary Reason For Visit: URINARY TRACT INFECTION,STATUS POST TRACHESTOMY Current Active Problems Afib (Acute) Anxiety (Acute) Change in mental state (Acute) Skin tear (Acute) UTI (urinary tract infection) (Acute) Diabetes mellitus, insulin dependent (IDDM), uncontrolled (Chronic) HTN (hypertension) (Chronic) Procedures: Principal: LABS/XRAYS/CX Condition: Guarded - Instructions Referrals: Madina Mccain MD [Primary Care Provider] - Disposition: [facility] - Home Medications Comprehensive Discharge Medication List: Ambulatory Orders Albuterol Sulfate Inhaler - [Ventolin HFA Inhaler -] 2 puff IH Q4H PRN #0 inhaler 11/29/16 Acetaminophen [Tylenol .Regular Strength -] 650 mg PO Q6H PRN #0 tablet Apixaban [Eliquis -] 5 mg PO BID tablet 04/29/17 Baclofen 10 mg PO TID 07/09/18 Rosuvastatin Calcium [Crestor] 10 mg PO DAILY 07/09/18 Montelukast Na [Singulair -] 10 mg PO HS 08/07/18 Topiramate [Topamax -] 100 mg PO DAILY #30 tablet 08/15/18 Alprazolam [Xanax] 0.25 mg PO Q8H PRN tablet MDD 3 10/23/18 Cholecalciferol (Vitamin D3) [Vitamin D3 -] 1,000 unit PO DAILY tab 11/09/18 Doxepin HCl [Sinequan -] 25 mg PO HS capsule 11/09/18 Ferrous Sulfate [Feosol] 325 mg PO BID ud 11/09/18 Nystatin Powder [Nystop Powder -] 1 applic TP DAILY applic 11/09/18 HYDROmorphone [Dilaudid -] 2 mg PO Q4H PRN 12/12/18 Insulin Sliding Scale [Novolog Vial Sliding Scale -] 0 units SQ TIDAC 12/12/18 Pramipexole Di-HCl [Mirapex] 0.5 mg PO TID 12/12/18 Ranitidine [Zantac -] 150 mg PO DAILY 12/12/18 Venlafaxine HCl ER [Effexor Xr -] 75 mg PO DAILY 12/12/18 Vitamin B Comp W-C [Nephro-Héctor -] 1 tablet PO DAILY 12/12/18 Albuterol 2.5/Ipratropium 0.5 [Duoneb -] 1 amp NEB RTID amp 12/23/18 Lactobacillus Acidophilus [Bacid -] 1 tab PO DAILY tab 12/23/18 Sodium Bicarbonate - 650 mg PO TID #30 tablet MDD 3 12/23/18 Acetaminophen [Tylenol .Regular Strength -] 650 mg PO Q6HPO PRN tablet Albuterol 2.5/Ipratropium 0.5 [Duoneb -] 1 amp NEB RTID amp 12/31/18 Alprazolam [Xanax] 0.25 mg PO Q8H PRN tablet MDD 3 12/31/18 Apixaban [Eliquis -] 5 mg PO BID tablet 12/31/18 Buspirone HCl [Buspar -] 10 mg PO BID tablet 12/31/18 Clotrimazole [Lotrimin -] 1 applic TP BID tube 12/31/18 Diphenhydramine HCl [Benadryl Capsule -] 25 mg PO Q6H PRN capsule 12/31/18 Ferrous Sulfate [Feosol] 325 mg PO BIDWM ud 12/31/18 HYDROmorphone [Dilaudid -] 2 mg PO Q6H PRN tablet MDD 4 12/31/18 Insulin Sliding Scale [Novolog Vial Sliding Scale -] 1 vial SQ ACHS units 12/31 Levothyroxine [Synthroid -] 75 mcg PO DAILY@0600 tablet 12/31/18 Loperamide HCl [Imodium -] 2 mg PO Q8H PRN capsule 12/31/18 Nystatin Powder [Nystop Powder -] 1 applic TP DAILY applic 12/31/18 Pramipexole Dihydrochloride [Mirapex -] 0.25 mg PO TID tablet 12/31/18 Venlafaxine HCl ER [Effexor Xr -] 75 mg PO DAILY@0600 cap.er.24h 12/31/18
[2018-12-31] MEDS: NYSTATIN POWDER 100,000 UNITS/GM - 15 GM TOPICAL POWDER TP SCH (09:04)
[2018-12-31] MEDS: APIXABAN 5 MG TABLET PO SCH (09:07)
[2018-12-31] MEDS: CLOTRIMAZOLE 1% CREAM 15 GM TUBE TP SCH (09:08)
[2018-12-31] MEDS: busPIRone HCL 10 MG TABLET (FP) PO SCH (09:08)
[2018-12-31] MEDS: ALPRAZolam 0.25 MG TABLET PO PRN (09:09)
[2018-12-31] MEDS: FERROUS SO4 325 MG TABLET (FP) PO SCH (09:09)
[2018-12-31 09:19] VITALS: BP 97/65; PULSE 118; TEMP 98
[2018-12-31 09:27] LABS: ANION GAP 9 MMOL/L (8-16); BLOOD UREA NITROGEN 12 mg/dL (7-18); CALCIUM 7.8 mg/dL (8.5-10.1); CHLORIDE 105 mmol/L (98-107); CO2 23 mmol/L (21-32); CREATININE 0.8 mg/dL (0.55-1.3); GLUCOSE,RANDOM 89 mg/dL (74-106); POTASSIUM 3.7 mmol/L (3.5-5.1); SODIUM 137 mmol/L (136-145)
--- NOTE | 2018-12-31 11:22 | PN ---
Progress Note, Physician History of Present Illness: AWAKE , ALERT, ORIENTED ANSWERS QUESTIONS APPROPRIATELY APPEARS TO BE AT BASELINE MENTAL STATUS AFEBRILE WBC IMPROVED CULTURES NEGATIVE - Current Medication List Current Medications: Active Medications Acetaminophen (Tylenol -) 650 mg PO Q6HPO PRN PRN Reason: FEVER Last Admin: 12/31/18 04:01 Dose: 650 mg Albuterol/Ipratropium (Duoneb -) 1 amp NEB RTID [facility] Last Admin: 12/31/18 07:57 Dose: 1 amp Alprazolam (Xanax -) 0.25 mg PO Q8H PRN PRN Reason: ANXIETY Last Admin: 12/31/18 09:09 Dose: 0.25 mg Apixaban (Eliquis -) 5 mg PO BID [facility] Last Admin: 12/31/18 09:07 Dose: 5 mg Buspirone HCl (Buspar -) 10 mg PO BID [facility] Last Admin: 12/31/18 09:08 Dose: 10 mg Clotrimazole (Lotrimin 1% Cream -) 1 applic TP BID [facility] Last Admin: 12/31/18 09:08 Dose: 1 applic Diphenhydramine HCl (Benadryl -) 25 mg PO Q6H PRN PRN Reason: FOR ITCHING Last Admin: 12/31/18 09:09 Dose: 25 mg Ferrous Sulfate (Feosol -) 325 mg PO BIDWM [facility] Last Admin: 12/31/18 09:09 Dose: 325 mg Hydromorphone HCl (Dilaudid -) 2 mg PO Q6H PRN PRN Reason: PAIN LEVEL 7 - 10 Last Admin: 12/31/18 06:37 Dose: 2 mg Meropenem 1 gm/ Dextrose 100 mls @ 200 mls/hr IVPB Q8H-IV [facility] Last Admin: 12/31/18 09:00 Dose: 200 mls/hr Sodium Chloride (1/2 Normal Saline) 1,000 mls @ 40 mls/hr IV ASDIR [facility] Last Admin: 12/30/18 17:57 Dose: Not Given Insulin Aspart (Novolog Vial Sliding Scale -) 1 vial SQ ACHS [facility]; Protocol Last Admin: 12/31/18 06:29 Dose: Not Given Levothyroxine Sodium (Synthroid -) 75 mcg PO DAILY@0600 [facility] Last Admin: 12/31/18 06:36 Dose: 75 mcg Loperamide HCl (Imodium -) 2 mg PO Q8H PRN PRN Reason: DIARRHEA Last Admin: 12/31/18 09:09 Dose: 2 mg Nystatin (Nystop Powder -) 1 applic TP DAILY [facility] Last Admin: 12/31/18 09:04 Dose: 1 applic Pramipexole Dihydrochloride (Mirapex -) 0.25 mg PO TID [facility] Last Admin: 12/31/18 06:37 Dose: 0.25 mg Venlafaxine HCl (Effexor Xr -) 75 mg PO DAILY@0600 [facility] Last Admin: 12/31/18 06:37 Dose: 75 mg - Objective Vital Signs: Vital Signs Temperature 98.0 F 12/31/18 09:18 Pulse Rate 118 H 12/31/18 09:18 Respiratory Rate 18 12/31/18 09:18 Blood Pressure 97/65 12/31/18 09:18 O2 Sat by Pulse Oximetry (%) 99 12/31/18 07:43 Constitutional: Yes: No Distress Eyes: Yes: Conjunctiva Clear Cardiovascular: Yes: Regular Rate and Rhythm, S1, S2 Respiratory: Yes: CTA Bilaterally Gastrointestinal: Yes: Normal Bowel Sounds, Soft, Tenderness Edema: No Labs: CBC, BMP 12/28/18 06:30 12/31/18 08:35 INR, PTT INR 1.77 (0.83-1.09) H 12/27/18 11:30 Assessment/Plan UTI HX ESBL TOXIC METABOLIC ENCEPHALOPATHY RESOLVED D/C ANTIBIOTICS, OBSERVE OFF
--- NOTE | 2018-12-31 12:02 | CONS ---
DATE OF CONSULTATION: 12/28/2018 The patient is a 53-year-old female with history of multiple recent hospitalizations, evaluated for sepsis. She was transferred from her group home facility with reports of altered mentation. The patient was evaluated in the emergency room where she was noted to have low-grade fever and elevated white blood cell count. She complained of dysuria. She has had a history of recurrent urinary tract infections in the past and a recent positive urine culture for ESBL. PAST MEDICAL HISTORY: Positive for atrial fibrillation, bipolar disorder, hypertension, COPD, chronic respiratory failure, diabetes mellitus, hypothyroidism. PAST SURGICAL HISTORY: Status post tracheostomy. ALLERGIES: OXYCODONE, ASPIRIN, FENTANYL, IBUPROFEN. LABORATORY DATA: White count on admission 16, presently 13.1. Hematocrit 28.6, platelet count 581. Creatinine 1.3. Urinalysis: White cells 789. Urine culture and blood cultures are pending. PHYSICAL EXAMINATION: General: She is awake, in no acute distress. Vital Signs: Temperature 100.3, blood pressure 119/77, pulse 118, regular. Respirations 20 per minute. HEENT: Sclerae are anicteric. Cardiovascular: Heart sounds S1, S2. Lungs: Diminished breath sounds bilaterally. Abdomen: Soft. No suprapubic tenderness elicited. Extremities: Negative for edema. IMPRESSION: 1. Urinary tract infection, rule out sepsis secondary to urinary tract infection. 2. Toxic metabolic encephalopathy. 3. History of extended-spectrum beta-lactamase. Pending cultures, empiric antibiotic coverage with meropenem to cover possibility of recurrent extended-spectrum beta-lactamase urinary tract infection/sepsis secondary to urinary tract infection. Contact precautions. Thank you for the kind referral. DENISHA ALMANZAR M.D. [id number]
[2018-12-31] MEDS: SODIUM CHLORIDE 0.45% 1,000 ML IV SCH (15:06)
== END 2018-12-31 15:24 | DRG 689 ==
LOC: JER 10:42 → JERBED 16:18 → J7W 21:46
PROVIDERS: ADMIT Student in an Organized Health Care Education/Training Program; ATTEND Student in an Organized Health Care Education/Training Program
DX: N39.0 Urinary tract infection, site not specified (principal); G92 Toxic encephalopathy; E87.2 Acidosis; N17.9 Acute kidney failure, unspecified; J96.10 Chronic respiratory failure, unspecified whether with hypoxia or hypercapnia; J44.9 Chronic obstructive pulmonary disease, unspecified; I48.91 Unspecified atrial fibrillation; Z79.01 Long term (current) use of anticoagulants; E11.65 Type 2 diabetes mellitus with hyperglycemia; Z93.0 Tracheostomy status; Z79.4 Long term (current) use of insulin; E03.9 Hypothyroidism, unspecified; F41.9 Anxiety disorder, unspecified; D64.9 Anemia, unspecified; F31.9 Bipolar disorder, unspecified; F41.8 Other specified anxiety disorders; G47.00 Insomnia, unspecified; E11.22 Type 2 diabetes mellitus with diabetic chronic kidney disease; I12.9 Hypertensive chronic kidney disease with stage 1 through stage 4 chronic kidney disease, or unspecified chronic kidney disease; N18.9 Chronic kidney disease, unspecified; R19.7 Diarrhea, unspecified; E11.42 Type 2 diabetes mellitus with diabetic polyneuropathy; K59.00 Constipation, unspecified
CPT/HCPCS: 36415; 71045-TC-FY; 80048; 80053; 81003; 81015; 82803; 82962; 83605; 83735; 84484; 85025; 85027; 85610; 85730; 87040; 87086; 93005; 93010; 94640; 97116-GP; 97162-GP; 99284-25; J0131

== ENCOUNTER 2019-05-15 01:36 | Inpatient (IN) | payer OTHER ==
--- NOTE | 2019-05-15 02:34 | PDOC ---
Attending Attestation - Resident Resident Name: Francesca Martinez - ED Attending Attestation I have performed the following: I have examined & evaluated the patient, The case was reviewed & discussed with the resident, I agree w/resident's findings & plan - HPI HPI: 05/15/19 02:39 Pt is on eliquis and she fell out of a cab when she was exiting - states that her knees gave out on her while she was attempting to get into her walker. She now has bleeding into her lower anterior knees -looks deformed due to the vast amount of blood in the knees bilat. Possible broken bones. Awaiting XRAYS. - Physicial Exam PE: 05/15/19 04:50 Agree with resident exam. Pt cannot tolerate movement of her lower legs. At bilat proximal tibias, pt has swelling and deformity. Pt complains of left ankle pain, however she has no swelling there, and no malleolar tendeness lateral or medial and no pain at the base of the 5th metatarsal. - Medical Decision Making 05/15/19 03:39 All of patient's labs are normal. Pt will have XRAYS once XR dept is ready for the patient. 05/15/19 04:50 Pt in fact has bilateral proximal tibial fractures 05/15/19 05:20 Patient Name: JASWINDER CORTES THIS IS A PRELIMINARY REPORT FROM [facility] MACHINE OPERATOR DATE OF SERVICE: 2019-05-15 04:02:42 IMAGES: 2 EXAM: KNEE 3 POS-RIGHT HISTORY: Rule out fracture COMPARISON: None. FINDINGS: Bones are demineralized. No joint effusion. There is a minimally displaced proximal tibial fracture with mild anterior angulation. There may be a proximal fibular fracture as well. IMPRESSION: Proximal extra-articular tibial fracture and questionable fibular fracture. 05/15/19 06:[address] Amando pinon. She is awaiting CT scan to further assess extent of her tibial fractures. She will be seen by Drs. Miller and Jam
[2019-05-15] MEDS ORDERED: HYDROmorphone HCL CARPU-JECT 2 MG/1 ML DISP.SYRIN IVPUSH ONE ×2 (02:35→05:01)
--- NOTE | 2019-05-15 02:42 | PDOC ---
History of Present Illness <Kathi Spencer - Last Filed: 05/15/19 06:30> - General History Source: Patient Exam Limitations: No Limitations - History of Present Illness Initial Comments: 05/15/19 02:40 52 y/o F with PMHx of DM, COPD (s/p tracheostomy, on 2L home O2), asthma, anxiety, depression, chronic back pain, AFib (on Eliquis), CVA x2, HLD, HTN, migraines, Uterine CA s/p hyterectomy, SB mass s/p resection, Osteomyelitis (of T6 and T7 s/p resection), presented from home accompanied by aid and her mother s/p Fall. Patient went to dinner this evening and upon exiting her cab, she fell landing on her b/l knees. Her Aid was unable to lift her off the ground as patient was complaning of significant pain in both her knees an inability to extend her knees. At this point, EMS was alerted and patient was brought to [facility]. She denies losing conciousness or hitting her head. Denies any loss of bowel or bladder control, tongue biting. Denies any recent travel, sick contacts or recent medication changes. Denies any Fevers, chills, chest pain, SOB, Nausea, vomiting, Diarrhea, constipation, dysuria, visual changes, photophobia. PCP: Dr. Manolo Jaquez PMHx: As Above PSHx: Hysterectomy, Small bowel resection, Appendectomy, Spine surgery, Tracheostomy Social: Denies tobacco, EtOH or drug use FHx: Noncontributory <Francesca Martinez - Last Filed: 05/15/19 06:42> - General Chief Complaint: Injury Stated Complaint: FALL Time Seen by Provider: 05/15/19 02:31 Past History <Kathi Spencer - Last Filed: 05/15/19 06:30> - Past Medical History Anemia: Yes Asthma: Yes (COPD, trach #8) Cancer: Yes (UTERINE) Cardiac Disorders: Yes (A-fib) CVA: No COPD: Yes CHF: No Dementia: No Diabetes: Yes GI Disorders: Yes (colitis, SB resection, GERD) Disorders: Yes (KIDNEY STENTS) HTN: Yes Hypercholesterolemia: Yes Liver Disease: No Psychiatric Problems: Yes (ANXIETY) Seizures: Yes (5 yrs ago) Thyroid Disease: No - Surgical History Abdominal Surgery: Yes (BOWEL RESECTION) Appendectomy: Yes (removed 1998) Cardiac Surgery: No Cholecystectomy: No Lung Surgery: No Neurologic Surgery: No Orthopedic Surgery: Yes (Back Sx T7,6) - Immunization History Td Vaccination: Yes TDAP Vaccination: Yes Immunization Up to Date: Yes - Suicide/Smoking/Psychosocial Hx Smoking Status: No Smoking History: Never smoked Have you smoked in the past 12 months: No Number of Cigarettes Smoked Daily: 3 If you are a former smoker, when did you quit?: 1997 'Breaking Loose' booklet given: 03/12/15 Hx Alcohol Use: No Drug/Substance Use Hx: No Substance Use Type: None Hx Substance Use Treatment: No <Francesca Martinez - Last Filed: 05/15/19 06:42> - Past Medical History Allergies/Adverse Reactions: Allergies Allergy/AdvReac Type Severity Reaction Status Date / Time oxycodone [Oxycodone] Allergy Severe Nausea Verified 12/27/18 11:33 oxycodone HCl [From Percocet] Allergy Severe Nausea Verified 12/27/18 11:33 aspirin Allergy Mild Verified 12/27/18 11:33 blueberry [Blueberry] Allergy Mild Swelling Verified 12/27/18 11:33 fentanyl Allergy Mild Vomiting Verified 12/27/18 11:33 ibuprofen Allergy Swelling Verified 12/27/18 11:33 aspartame AdvReac Mild Itching Verified 12/27/18 11:33 Home Medications: Ambulatory Orders Albuterol Sulfate Inhaler - [Ventolin HFA Inhaler -] 2 puff IH Q4H PRN #0 inhaler 11/29/16 Acetaminophen [Tylenol .Regular Strength -] 650 mg PO Q6H PRN #0 tablet Apixaban [Eliquis -] 5 mg PO BID tablet 04/29/17 Baclofen 10 mg PO TID 07/09/18 Rosuvastatin Calcium [Crestor] 10 mg PO DAILY 07/09/18 Montelukast Na [Singulair -] 10 mg PO HS 08/07/18 Topiramate [Topamax -] 100 mg PO DAILY #30 tablet 08/15/18 Alprazolam [Xanax] 0.25 mg PO Q8H PRN tablet MDD 3 10/23/18 Cholecalciferol (Vitamin D3) [Vitamin D3 -] 1,000 unit PO DAILY tab 11/09/18 Doxepin HCl [Sinequan -] 25 mg PO HS capsule 11/09/18 Ferrous Sulfate [Feosol] 325 mg PO BID ud 11/09/18 Nystatin Powder [Nystop Powder -] 1 applic TP DAILY applic 11/09/18 HYDROmorphone [Dilaudid -] 2 mg PO Q4H PRN 12/12/18 Insulin Sliding Scale [Novolog Vial Sliding Scale -] 0 units SQ TIDAC 12/12/18 Pramipexole Di-HCl [Mirapex] 0.5 mg PO TID 12/12/18 Ranitidine [Zantac -] 150 mg PO DAILY 12/12/18 Venlafaxine HCl ER [Effexor Xr -] 75 mg PO DAILY 12/12/18 Vitamin B Comp W-C [Nephro-Héctor -] 1 tablet PO DAILY 12/12/18 Albuterol 2.5/Ipratropium 0.5 [Duoneb -] 1 amp [facility] RTID amp 12/23/18 Lactobacillus Acidophilus [Bacid -] 1 tab PO DAILY tab 12/23/18 Sodium Bicarbonate - 650 mg PO TID #30 tablet MDD 3 12/23/18 Acetaminophen [Tylenol .Regular Strength -] 650 mg PO Q6HPO PRN tablet Albuterol 2.5/Ipratropium 0.5 [Duoneb -] 1 amp NEB RTID amp 12/31/18 Alprazolam [Xanax] 0.25 mg PO Q8H PRN tablet MDD 3 12/31/18 Apixaban [Eliquis -] 5 mg PO BID tablet 12/31/18 Buspirone HCl [Buspar -] 10 mg PO BID tablet 12/31/18 Clotrimazole [Lotrimin -] 1 applic TP BID tube 12/31/18 Diphenhydramine HCl [Benadryl Capsule -] 25 mg PO Q6H PRN capsule 12/31/18 Ferrous Sulfate [Feosol] 325 mg PO BIDWM ud 12/31/18 HYDROmorphone [Dilaudid -] 2 mg PO Q6H PRN tablet MDD 4 12/31/18 Insulin Sliding Scale [Novolog Vial Sliding Scale -] 1 vial SQ ACHS units 12/31 Levothyroxine [Synthroid -] 75 mcg PO DAILY@0600 tablet 12/31/18 Loperamide HCl [Imodium -] 2 mg PO Q8H PRN capsule 12/31/18 Nystatin Powder [Nystop Powder -] 1 applic TP DAILY applic 12/31/18 Pramipexole Dihydrochloride [Mirapex -] 0.25 mg PO TID tablet 12/31/18 Venlafaxine HCl ER [Effexor Xr -] 75 mg PO DAILY@0600 cap.er.24h 12/31/18 Review of Systems - Review of Systems Constitutional: No: Chills, Fever, Weakness HEENTM: No: Blurred Vision, Double Vision Respiratory: Yes: Cough. No: Shortness of Breath Cardiac (ROS): No: Chest Pain, Lightheadedness, Palpitations, Syncope ABD/GI: No: Abdominal Distended, Constipated, Diarrhea, Nausea, Vomiting : No: Dysuria, Hematuria Musculoskeletal: Yes: Joint Pain (Knee pain), Joint Swelling (Knee swelling) Integumentary: Yes: Bruising Neurological: No: Numbness, Tingling Psychiatric: Yes: Anxiety, Frequent Crying <Francesca Martinez - Last Filed: 05/15/19 06:42> *Physical Exam - Vital Signs Last Vital Signs Temp Pulse Resp BP Pulse Ox 98.0 F 93 H 20 139/95 97 05/15/19 01:57 05/15/19 03:10 05/15/19 03:10 05/15/19 03:10 05/15/19 05:48 <Kathi Spencer - Last Filed: 05/15/19 06:30> - Vital Signs Last Vital Signs Temp Pulse Resp BP Pulse Ox 98.0 F 100 H 18 132/74 96 05/15/19 01:57 05/15/19 01:57 05/15/19 01:57 05/15/19 01:57 05/15/19 01:57 - Physical Exam General Appearance: Yes: Nourished, Apparent Distress HEENT: positive: EOMI, AYESHA, Muffled/Hoarse voice, Other (Trache Midline). negative: Pharyngeal Erythema, Tonsillar Exudate Neck: positive: Supple Respiratory/Chest: positive: Normal Breath Sounds, Rhonchi. negative: Respiratory Distress, Crackles, Wheezing Cardiovascular: positive: Regular Rhythm, Regular Rate, S1, S2. negative: Edema , JVD, Murmur Gastrointestinal/Abdominal: positive: Normal Bowel Sounds, Soft. 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 NML intact, Fully Oriented, Alert, Other ( Anxious) <Francesca Martinez - Last Filed: 05/15/19 06:42> ED Treatment Course - LABORATORY CBC & Chemistry Diagram: 05/15/19 03:00 - ADDITIONAL ORDERS Additional order review: Laboratory Results 05/15/19 03:00 PT with INR 12.60 INR 1.07 PTT (Actin FS) 32.5 05/15/19 03:00 RBC 3.71 MCV 94.9 MCHC 32.2 RDW 14.9 D MPV 9.3 D Neutrophils % 89.5 H Lymphocytes % 6.7 L D Monocytes % 3.3 L Eosinophils % 0.2 Basophils % 0.3 - Medications Given in the ED: ED Medications Discontinued Medications Generic Name Dose Route Start Last Admin Trade Name Freq PRN Reason Stop Dose Admin Hydromorphone HCl 1 mg 05/15/19 02:35 05/15/19 03:02 Dilaudid Injection - IVPUSH 05/15/19 02:36 1 mg ONCE ONE Administration Hydromorphone HCl 2 mg 05/15/19 05:01 05/15/19 05:36 Dilaudid Injection - IVPUSH 05/15/19 05:02 2 mg ONCE ONE Administration <Kathi Spencer - Last Filed: 05/15/19 06:30> - LABORATORY CBC & Chemistry Diagram: 05/15/19 03:00 - RADIOLOGY Radiology Studies Ordered: Category Date Time Status KNEE 3 POS-LEFT [RAD] Stat Radiology 05/15/19 02:36 Ordered KNEE 3 POS-RIGHT [RAD] Stat Radiology 05/15/19 02:36 Ordered <Francesca Martinez - Last Filed: 05/15/19 06:42> Medical Decision Making - Medical Decision Making 05/15/19 02:51 52 y/o F with PMHx of DM, COPD (s/p tracheostomy, on 2L home O2), asthma, anxiety, depression, chronic back pain, AFib (on Eliquis), CVA x2, HLD, HTN, migraines, Uterine CA s/p hyterectomy, SB mass s/p resection, Osteomyelitis (of T6 and T7 s/p resection), presented from home accompanied by aid and her mother s/p Fall. WIll need to r/o Fx. VSS, No new FND, Knee joints swollen concerning for bleed. Will Check CBC, PT/INR, aPTT XRay of b/l Knees. Pain control with 1mg Dilaudid x1 Ongoing assessment. 05/15/19 03:34 Labwork Noted above, Hgb Stable Knee XRay pending 05/15/19 05:19 XRay suggestive of b/l Tibial Plateau fx Case discussed with PRUDENCE Guy who suggests calling Dr. Polk/Dr. Miller for Ortho Pending call back 05/15/19 05:35 Ortho Aware of case, Signed out to PRUDENCE Guy. <Francesca Martinez - Last Filed: 05/15/19 06:42> *DC/Admit/Observation/Transfer - Discharge Dispostion Decision to Admit order: Yes <Kathi Spencer - Last Filed: 05/15/19 06:30> - Discharge Dispostion Decision to Admit order: Yes <Francesca Martinez - Last Filed: 05/15/19 06:42> Diagnosis at time of Disposition: Tibial plateau fracture, Bilateral closed proximal tibial fracture, Hx of halfway use of blood thinners
[2019-05-15] MEDS ORDERED: HYDROmorphone HCl 2 MG/ML VIAL ONE ×4 (03:00→13:29)
[2019-05-15 03:12] LABS: BASO % 0.3 % (0-2.0); EOS % 0.2 % (0-4.5); HEMATOCRIT 35.2 % (32.4-45.2); HEMOGLOBIN 11.3 GM/dL (10.7-15.3); LYMPH % 6.7 % (8-40); MCH 30.6 pg (25.7-33.7); MCHC 32.2 g/dl (32.0-36.0); MEAN CELL VOLUME 94.9 fl (80-96); MEAN PLT VOLUME 9.3 fl (7.5-11.1); MONO % 3.3 % (3.8-10.2); NEUT % 89.5 % (42.8-82.8); PLATELET COUNT 241 K/MM3 (134-434); RBC 3.71 M/mm3 (3.60-5.2); RDW 14.9 % (11.6-15.6); WHITE BLOOD COUNT 11.2 K/mm3 (4.0-10.0)
[2019-05-15 03:29] LABS: INR 1.07 (0.83-1.09); PROTHROMBIN TIME (PATIENT) 12.6 SEC (9.7-13.0)
[2019-05-15 03:31] LABS: ACTIVATED PTT 32.5 SECONDS (25.2-36.5)
--- NOTE | 2019-05-15 05:27 | HP ---
Admitting History and Physical - Primary Care Physician PCP: Manolo Jaquez - Admission Chief Complaint: s/p fall Knee Pain History of Present Illness: This is a 53 y/o woman with a PMHx of HTN, HLD, Afib, COPD (O2 dependent) s/p Trach, Asthma, GI Bleed, Uterine Ca. Who presents to the ED s/p fall with knee pain and unable to ambulate. Patient reports falling out of a cab onto her knees yesterday. Patient denies head trauma or LOC. Patient denies fever, chills , dizziness, COX, CP, palpitations, AP, N/V/D, dysuria. History Source: Patient, Family Member Limitations to Obtaining History: No Limitations - Past Medical History Cardiovascular: Yes: AFIB (Paroxysmal), HTN, Hyperlipdemia Pulmonary: Yes: Asthma, COPD, O2 Dependent, Previously Intubated, Other (Trach) Gastrointestinal: Yes: GI Bleed Hepatobiliary: Yes: Other (Fatty Liver). No: Cirrhosis Renal/: Yes: Cancer (Uterine), Other (STENTS/[place] in the past) Heme/Onc: Yes: Anemia Infectious Disease: Yes: C-Diff (june 2014), Other (Osteomyelitis of thoracic spine) Psych: Yes: Anxiety, Bipolar, Depression Musculoskeletal: Yes: Chronic low back pain, Other (multiple vertebral fractures ) Endocrine: Yes: Diabetes Mellitus, Hypothyroidism - Past Surgical History Past Surgical History: Yes: Appendectomy, Colectomy (By description, right colon resection with anastamosis noted on colonoscopy 2013), Hysterectomy (ADE/ BSO), Stent - Smoking History Smoking history: Never smoked Have you smoked in the past 12 months: No Aproximately how many cigarettes per day: 3 If you are a former smoker, when did you quit?: 1997 - Alcohol/Substance Use Hx Alcohol Use: No History of Substance Use: reports: Prescription - Social History 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) History of Recent Travel: No Home Medications - Allergies Allergies/Adverse Reactions: Allergies Allergy/AdvReac Type Severity Reaction Status Date / Time oxycodone [Oxycodone] Allergy Severe Nausea Verified 12/27/18 11:33 oxycodone HCl [From Percocet] Allergy Severe Nausea Verified 12/27/18 11:33 aspirin Allergy Mild Verified 12/27/18 11:33 blueberry [Blueberry] Allergy Mild Swelling Verified 12/27/18 11:33 fentanyl Allergy Mild Vomiting Verified 12/27/18 11:33 ibuprofen Allergy Swelling Verified 12/27/18 11:33 aspartame AdvReac Mild Itching Verified 12/27/18 11:33 - Home Medications Home Medications: Ambulatory Orders Albuterol Sulfate Inhaler - [Ventolin HFA Inhaler -] 2 puff IH Q4H PRN #0 inhaler 11/29/16 Acetaminophen [Tylenol .Regular Strength -] 650 mg PO Q6H PRN #0 tablet Apixaban [Eliquis -] 5 mg PO BID tablet 04/29/17 Baclofen 10 mg PO TID 07/09/18 Rosuvastatin Calcium [Crestor] 10 mg PO DAILY 07/09/18 Montelukast Na [Singulair -] 10 mg PO HS 08/07/18 Topiramate [Topamax -] 100 mg PO DAILY #30 tablet 08/15/18 Alprazolam [Xanax] 0.25 mg PO Q8H PRN tablet MDD 3 10/23/18 Cholecalciferol (Vitamin D3) [Vitamin D3 -] 1,000 unit PO DAILY tab 11/09/18 Doxepin HCl [Sinequan -] 25 mg PO HS capsule 11/09/18 Ferrous Sulfate [Feosol] 325 mg PO BID ud 11/09/18 Nystatin Powder [Nystop Powder -] 1 applic TP DAILY applic 11/09/18 HYDROmorphone [Dilaudid -] 2 mg PO Q4H PRN 12/12/18 Insulin Sliding Scale [Novolog Vial Sliding Scale -] 0 units SQ TIDAC 12/12/18 Pramipexole Di-HCl [Mirapex] 0.5 mg PO TID 12/12/18 Ranitidine [Zantac -] 150 mg PO DAILY 12/12/18 Venlafaxine HCl ER [Effexor Xr -] 75 mg PO DAILY 12/12/18 Vitamin B Comp W-C [Nephro-Héctor -] 1 tablet PO DAILY 12/12/18 Albuterol 2.5/Ipratropium 0.5 [Duoneb -] 1 amp NEB RTID amp 12/23/18 Lactobacillus Acidophilus [Bacid -] 1 tab PO DAILY tab 12/23/18 Sodium Bicarbonate - 650 mg PO TID #30 tablet MDD 3 12/23/18 Acetaminophen [Tylenol .Regular Strength -] 650 mg PO Q6HPO PRN tablet Albuterol 2.5/Ipratropium 0.5 [Duoneb -] 1 amp NEB RTID amp 12/31/18 Alprazolam [Xanax] 0.25 mg PO Q8H PRN tablet MDD 3 12/31/18 Apixaban [Eliquis -] 5 mg PO BID tablet 12/31/18 Buspirone HCl [Buspar -] 10 mg PO BID tablet 12/31/18 Clotrimazole [Lotrimin -] 1 applic TP BID tube 12/31/18 Diphenhydramine HCl [Benadryl Capsule -] 25 mg PO Q6H PRN capsule 12/31/18 Ferrous Sulfate [Feosol] 325 mg PO BIDWM ud 12/31/18 HYDROmorphone [Dilaudid -] 2 mg PO Q6H PRN tablet MDD 4 12/31/18 Insulin Sliding Scale [Novolog Vial Sliding Scale -] 1 vial SQ ACHS units 12/31 Levothyroxine [Synthroid -] 75 mcg PO DAILY@0600 tablet 12/31/18 Loperamide HCl [Imodium -] 2 mg PO Q8H PRN capsule 12/31/18 Nystatin Powder [Nystop Powder -] 1 applic TP DAILY applic 12/31/18 Pramipexole Dihydrochloride [Mirapex -] 0.25 mg PO TID tablet 12/31/18 Venlafaxine HCl ER [Effexor Xr -] 75 mg PO DAILY@0600 cap.er.24h 12/31/18 Family Disease History - Family Disease History Family Disease History: Diabetes: Mother (Alive: heart surgery), Heart Disease: Mother, CA: Father (: leukemia), Other: Brother (2,Healthy), Sister (1, Healthy) Review of Systems - Review of Systems Constitutional: reports: No Symptoms Eyes: reports: No Symptoms HENT: reports: No Symptoms Neck: reports: No Symptoms Cardiovascular: reports: No Symptoms Respiratory: reports: No Symptoms Gastrointestinal: reports: No Symptoms Genitourinary: reports: No Symptoms Breasts: reports: No Symptoms Reported Musculoskeletal: reports: Joint Pain Integumentary: reports: Bruising (b/l LE) Neurological: reports: No Symptoms Endocrine: reports: No Symptoms Hematology/Lymphatic: reports: No Symptoms Psychiatric: reports: No Symptoms Pain Intensity: 7 Physical Examination Vital Signs: Vital Signs Temperature 98.0 F 05/15/19 01:57 Pulse Rate 93 H 05/15/19 03:10 Respiratory Rate 20 05/15/19 03:10 Blood Pressure 139/95 05/15/19 03:10 O2 Sat by Pulse Oximetry (%) 95 05/15/19 03:10 Constitutional: Yes: Anxious, Mild Distress Eyes: Yes: WNL, Conjunctiva Clear, EOM Intact, PERRL HENT: Yes: WNL, Atraumatic, Normocephalic Neck: Yes: WNL, Supple, Other (Trach with collar) Cardiovascular: Yes: Tachycardia, S1, S2 Respiratory: Yes: Rhonchi, Other (trach with collar) Gastrointestinal: Yes: Normal Bowel Sounds, Soft Renal/: Yes: WNL Breast(s): Yes: WNL Musculoskeletal: Yes: Joint Swelling Extremities: Yes: Other (bruising to b/l anterior LE) Edema: Yes Peripheral Pulses WNL: Yes Integumentary: Yes: Bruising (ecchymotic b/l LE) Wound/Incision: Yes: Other (abrasions to b/l LE) Neurological: Yes: WNL, Alert, Oriented Psychiatric: Yes: WNL, Alert, Oriented Labs: CBC, BMP 05/15/19 03:00 Radiology Report: THIS IS A PRELIMINARY REPORT FROM [facility] DATE OF SERVICE: 2019-05-15 04:02:42 IMAGES: 2 EXAM: KNEE 3 POS-RIGHT HISTORY: Rule out fracture COMPARISON: None. FINDINGS: Bones are demineralized. No joint effusion. There is a minimally displaced proximal tibial fracture with mild anterior angulation. There may be a proximal fibular fracture as well. IMPRESSION: Proximal extra-articular tibial fracture and questionable fibular fracture. Laboratory Results - last 24 hr 05/15/19 05/15/19 03:00 03:00 WBC 11.2 H RBC 3.71 Hgb 11.3 Hct 35.2 D MCV 94.9 MCH 30.6 MCHC 32.2 RDW 14.9 D Plt Count 241 D MPV 9.3 D Absolute Neuts (auto) 10.0 H Neutrophils % 89.5 H Lymphocytes % 6.7 L D Monocytes % 3.3 L Eosinophils % 0.2 Basophils % 0.3 Nucleated RBC % 0 PT with INR 12.60 INR 1.07 PTT (Actin FS) 32.5 Current Medications Generic Name Dose Route Start Last Admin Trade Name Freq PRN Reason Stop Dose Admin Albuterol Sulfate 2 puff 05/15/19 07:39 Ventolin Hfa Inhaler - IH Q4H PRN SHORT OF BREATH/WHEEZING Albuterol/Ipratropium 1 amp 05/15/19 08:00 Duoneb - NEB RTID [facility] Alprazolam 0.25 mg 05/15/19 07:39 Xanax - PO Q8H PRN ANXIETY Buspirone HCl 10 mg 05/15/19 10:00 Buspar - PO BID [facility] Cholecalciferol 1,000 unit 05/15/19 10:00 Vitamin D3 - PO DAILY [facility] Clotrimazole 1 applic 05/15/19 10:00 Lotrimin 1% Cream - TP BID [facility] Docusate Sodium 100 mg 05/15/19 06:00 05/15/19 05:36 Colace - PO Not Given TID [facility] Doxepin HCl 25 mg 05/15/19 22:00 Sinequan - PO HS [facility] Ferrous Sulfate 325 mg 05/15/19 10:00 Feosol - PO BID [facility] Hydromorphone HCl 1 mg 05/15/19 09:00 Dilaudid Vial - IVPB Q6H PRN PAIN LEVEL 7 - 10 Levothyroxine Sodium 75 mcg 05/15/19 07:45 05/15/19 07:52 Synthroid - PO 75 mcg DAILY@0600 [facility] Administration Loperamide HCl 2 mg 05/15/19 07:39 Imodium - PO Q8H PRN DIARRHEA Montelukast Sodium 10 mg 05/15/19 22:00 Singulair - PO HS [facility] Multivit/Ca Carb/B Cmplx/FA/Prenat 1 tablet 05/15/19 10:00 Nephro-Héctor - PO DAILY [facility] Nystatin 1 applic 05/15/19 10:00 Nystop Powder - TP DAILY [facility] Ranitidine HCl 150 mg 05/15/19 10:00 Zantac - PO DAILY [facility] Rosuvastatin Calcium 10 mg 05/15/19 10:00 Crestor - PO DAILY [facility] Sodium Bicarbonate 650 mg 05/15/19 07:45 Sodium Bicarbonate - PO TID [facility] Topiramate 100 mg 05/15/19 10:00 Topamax - PO DAILY [facility] Venlafaxine HCl 75 mg 05/15/19 10:00 Effexor Xr - PO DAILY [facility] Imaging - Results Chest X-ray: Pending X-ray: Image Reviewed Problem List - Problems (1) Knee pain Code(s): M25.569 - PAIN IN UNSPECIFIED KNEE (2) Acute and chronic respiratory failure with hypoxia Code(s): J96.21 - ACUTE AND CHRONIC RESPIRATORY FAILURE WITH HYPOXIA (3) Anxiety Code(s): F41.9 - ANXIETY DISORDER, UNSPECIFIED (4) Bipolar 1 disorder Code(s): F31.9 - BIPOLAR DISORDER, UNSPECIFIED (5) Diabetes Code(s): E11.9 - TYPE 2 DIABETES MELLITUS WITHOUT COMPLICATIONS (6) Hypothyroid Code(s): E03.9 - HYPOTHYROIDISM, UNSPECIFIED Qualifiers: (7) Insomnia disorder Code(s): G47.00 - INSOMNIA, UNSPECIFIED (8) MRSA (methicillin resistant Staphylococcus aureus) colonization Code(s): Z22.322 - CARRIER OR SUSPECTED CARRIER OF METHICILLIN RESIS STAPH (9) Tracheostomy in place Code(s): Z93.0 - TRACHEOSTOMY STATUS (10) Chronic back pain Code(s): M54.9 - DORSALGIA, UNSPECIFIED; G89.29 - OTHER CHRONIC PAIN (11) Chronic pain disorder Code(s): G89.4 - CHRONIC PAIN SYNDROME (12) Drug abuse and dependence Code(s): F19.20 - OTHER PSYCHOACTIVE SUBSTANCE DEPENDENCE, UNCOMPLICATED (13) GERD (gastroesophageal reflux disease) Code(s): K21.9 - GASTRO-ESOPHAGEAL REFLUX DISEASE WITHOUT ESOPHAGITIS (14) HTN (hypertension) Code(s): I10 - ESSENTIAL (PRIMARY) HYPERTENSION Qualifiers: (15) Hyperlipidemia Code(s): E78.5 - HYPERLIPIDEMIA, UNSPECIFIED Qualifiers: (16) Mood disorder Code(s): F39 - UNSPECIFIED MOOD [AFFECTIVE] DISORDER (17) Opioid dependence Code(s): F11.20 - OPIOID DEPENDENCE, UNCOMPLICATED (18) Paroxysmal atrial fibrillation Code(s): I48.0 - PAROXYSMAL ATRIAL FIBRILLATION Assessment/Plan This is a 53 y/o woman admitted to /S for Tibial Plateau Fx bilaterally for further evaluation of their emergent condition. Plan Admit Appreciate Ortho consult Bedrest NPO Pain Mgmt judiciously secondary to opioid dependence Continue home meds O2 Fall Precautions Monitor CBC, BMP Monitor vitals FEN- Replete lytes prn DVT ppx- Hold Eliquis until seen by ortho Dispo: Requires Inpatient Care Visit type - Emergency Visit Emergency Visit: Yes ED Registration Date: 05/15/19 Care time: The patient presented to the Emergency Department on the above date and was hospitalized for further evaluation of their emergent condition. - New Patient This patient is new to me today: Yes Date on this admission: 05/15/19 - Critical Care Critical Care patient: No
[2019-05-15] MEDS ORDERED: DOCUSATE SODIUM 100 MG CAPSULE (FP) PO ONE (05:33)
[2019-05-15] MEDS: DOCUSATE SODIUM 100 MG CAPSULE (FP) PO SCH ×3 (05:36→23:55)
[2019-05-15] MEDS ORDERED: HYDROmorphone HCl 2 MG/ML VIAL IVPUSH ONE (07:37)
[2019-05-15] MEDS ORDERED: ALBUTEROL SO4 8 GM HFA INHALER IH PRN (07:39)
[2019-05-15] MEDS ORDERED: ACETAMINOPHEN 1000 MG/100 ML VIAL (NON FORMULARY) IVPB ONE (07:43)
[2019-05-15] MEDS ORDERED: LEVOTHYROXINE NA 25 MCG TABLET (FP) ONE (07:46)
[2019-05-15] MEDS ORDERED: ALBUTEROL SO4 2.5/IPRATROPIUM 0.5 INH SOL 3 ML VIAL.NEB. NEB ONE ×2 (07:46→13:31)
[2019-05-15] MEDS: LEVOTHYROXINE NA 75 MCG TABLET (FP) PO SCH (07:52)
[2019-05-15] MEDS ORDERED: ALPRAZolam 0.25 MG TABLET ONE (07:53)
[2019-05-15] MEDS: ALBUTEROL SO4 2.5/IPRATROPIUM 0.5 INH SOL 3 ML VIAL.NEB. NEB SCH ×3 (08:00→22:25)
[2019-05-15] MEDS: ALPRAZolam 0.25 MG TABLET PO PRN (08:06)
[2019-05-15] MEDS ORDERED: ACETAMINOPHEN INJECTION 100 ML IVPB ONE (08:45)
--- NOTE | 2019-05-15 09:11 | PN ---
Progress Note, Physician Chief Complaint: Tibial Plateau Fracture Fall History of Present Illness: Previous notes and events reviewed awake and alert NAD complain of pain to L leg tachycardic - Current Medication List Current Medications: Active Medications Albuterol Sulfate (Ventolin Hfa Inhaler -) 2 puff IH Q4H PRN PRN Reason: SHORT OF BREATH/WHEEZING Albuterol/Ipratropium (Duoneb -) 1 amp NEB RTID [facility] Alprazolam (Xanax -) 0.25 mg PO Q8H PRN PRN Reason: ANXIETY Last Admin: 05/15/19 08:06 Dose: 0.25 mg Buspirone HCl (Buspar -) 10 mg PO BID [facility] Cholecalciferol (Vitamin D3 -) 1,000 unit PO DAILY [facility] Clotrimazole (Lotrimin 1% Cream -) 1 applic TP BID [facility] Docusate Sodium (Colace -) 100 mg PO TID [facility] Last Admin: 05/15/19 05:36 Dose: Not Given Doxepin HCl (Sinequan -) 25 mg PO HS [facility] Ferrous Sulfate (Feosol -) 325 mg PO BID [facility] Hydromorphone HCl (Dilaudid Vial -) 1 mg IVPB Q6H PRN PRN Reason: PAIN LEVEL 7 - 10 Levothyroxine Sodium (Synthroid -) 75 mcg PO DAILY@0600 [facility] Last Admin: 05/15/19 07:52 Dose: 75 mcg Loperamide HCl (Imodium -) 2 mg PO Q8H PRN PRN Reason: DIARRHEA Montelukast Sodium (Singulair -) 10 mg PO HS [facility] Multivit/Ca Carb/B Cmplx/FA/Prenat (Nephro-Héctor -) 1 tablet PO DAILY [facility] Nystatin (Nystop Powder -) 1 applic TP DAILY [facility] Ranitidine HCl (Zantac -) 150 mg PO DAILY [facility] Rosuvastatin Calcium (Crestor -) 10 mg PO DAILY [facility] Sodium Bicarbonate (Sodium Bicarbonate -) 650 mg PO TID [facility] Topiramate (Topamax -) 100 mg PO DAILY [facility] Venlafaxine HCl (Effexor Xr -) 75 mg PO DAILY [facility] - Objective Vital Signs: Vital Signs Temperature 97.8 F 05/15/19 06:35 Pulse Rate 124 H 05/15/19 06:35 Respiratory Rate 20 05/15/19 03:10 Blood Pressure 130/88 05/15/19 06:35 O2 Sat by Pulse Oximetry (%) 94 L 05/15/19 06:35 Constitutional: Yes: No Distress, Calm Eyes: Yes: Conjunctiva Clear HENT: Yes: Atraumatic Neck: Yes: Other (trach) Cardiovascular: Yes: Tachycardia, Pulse Irregular Respiratory: Yes: Regular, Wheezes, Other (O2 via trach collar) Gastrointestinal: Yes: Normal Bowel Sounds, Soft Genitourinary: Yes: Incontinence Musculoskeletal: Yes: Muscle Weakness Extremities: Yes: WNL Edema: No Peripheral Pulses WNL: Yes Integumentary: Yes: Other (ecchymosis b/l anterior aspect lower extremities) Neurological: Yes: Alert, Oriented Psychiatric: Yes: Alert, Oriented Labs: CBC, BMP 05/15/19 03:00 INR, PTT INR 1.07 (0.83-1.09) 05/15/19 03:00 - ....Imaging X-ray: Report Reviewed Problem List - Problems (1) Bilateral closed proximal tibial fracture Assessment/Plan: -Ortho consult -pain control -Xray shows acute fracture proximal one third tibial diametaphysis, cannot exclude injury in tibial plateau Code(s): S82.101A - UNSP FRACTURE OF UPPER END OF RIGHT TIBIA, INIT FOR CLOS FX ; S82.102A - UNSP FRACTURE OF UPPER END OF LEFT TIBIA, INIT FOR CLOS FX (2) Afib Assessment/Plan: -Eliquis on hold due to possible surgery -will start on Heparin drip Code(s): I48.91 - UNSPECIFIED ATRIAL FIBRILLATION (3) Chronic respiratory failure Assessment/Plan: -O2 via trach collar -bronchodilators -montelukast -keep SpO2 >90% Code(s): J96.10 - CHRONIC RESPIRATORY FAILURE, UNSP W HYPOXIA OR HYPERCAPNIA (4) Diabetes Assessment/Plan: -BGM ACHS -ISS Code(s): E11.9 - TYPE 2 DIABETES MELLITUS WITHOUT COMPLICATIONS (5) Hypothyroid Assessment/Plan: -Levothyroxine Code(s): E03.9 - HYPOTHYROIDISM, UNSPECIFIED Qualifiers: (6) COPD (chronic obstructive pulmonary disease) Assessment/Plan: -Montelukast -O2 via trach collar -keep SpO2 >90% Code(s): J44.9 - CHRONIC OBSTRUCTIVE PULMONARY DISEASE, UNSPECIFIED (7) GERD (gastroesophageal reflux disease) Assessment/Plan: -Rantidine Code(s): K21.9 - GASTRO-ESOPHAGEAL REFLUX DISEASE WITHOUT ESOPHAGITIS (8) Hyperlipidemia Assessment/Plan: -Crestor Code(s): E78.5 - HYPERLIPIDEMIA, UNSPECIFIED Qualifiers: Assessment/Plan see problem list
[2019-05-15] MEDS ORDERED: HEPARIN NA (PORCINE) 5,000 UNITS/ML 1ML VIAL IVPUSH PRN ×2 (09:37)
--- NOTE | 2019-05-15 09:45 | CONSULT ---
Consult - text type - Consultation Consultation Note: FULL CONSULT DICTATED IMP: B PROX TIBIA/FIBULA FX PLAN: SPLINT FOR NOW. WHEN SWELLING GOES DOWN WE WILL PUT HER IN A CAST. CT SCAN TO FURTHER ILLUSTRATE FXS
[2019-05-15] MEDS: ROSUVASTATIN CA 10 MG TABLET (FP) PO SCH (10:24)
[2019-05-15] MEDS: VENLAFAXINE HCL 75 MG E.R. CAPSULES (FP) PO SCH (10:24)
[2019-05-15] MEDS: busPIRone HCL 10 MG TABLET (FP) PO SCH (10:24)
[2019-05-15] MEDS: CHOLECALCIFEROL (VIT D3) 1,000 UNIT (25 MCG) TABLET PO SCH (10:24)
[2019-05-15] MEDS: RANITIDINE HCL 150 MG TABLET (FP) PO SCH (10:24)
[2019-05-15] MEDS: SODIUM BICARBONATE 650 MG TABLET PO SCH ×3 (10:24→23:55)
[2019-05-15] MEDS: FERROUS SO4 325 MG TABLET (FP) PO SCH ×2 (10:24→23:55)
[2019-05-15] MEDS: VITAMIN B COMP W-C 1 EA TABLET PO SCH (10:24)
[2019-05-15] MEDS: TOPIRAMATE 100 MG TABLET PO SCH (10:24)
[2019-05-15] MEDS: HEPARIN - 25,000 UNIT in SODIUM CHLORIDE 495 ML IV SCH (10:45)
[2019-05-15] MEDS ORDERED: HEPARIN INFUSION - 25,000 UNITS/500 ML INFUS.BAG IVPB ONE (11:13)
[2019-05-15] MEDS: CLOTRIMAZOLE 1% CREAM 15 GM TUBE TP SCH (11:37)
[2019-05-15] MEDS: NYSTATIN POWDER 100,000 UNITS/GM - 15 GM TOPICAL POWDER TP SCH (11:38)
[2019-05-15] MEDS: INSULIN SLIDING SCALE (NOVOLOG) 1 VIAL SQ SCH ×2 (11:47→18:12)
[2019-05-15] MEDS: HYDROmorphone HCl 2 MG/ML VIAL IVPB PRN ×2 (13:34→21:02)
[2019-05-15 20:39] VITALS: BMI 25.7
[2019-05-15] MEDS: MONTELUKAST NA 10 MG TABLET PO SCH (23:55)
[2019-05-16] MEDS: ALPRAZolam 0.25 MG TABLET PO PRN ×2 (00:03→21:31)
[2019-05-16] MEDS: DOXEPIN HCL 25 MG CAPSULE PO SCH ×2 (00:08→21:32)
[2019-05-16] MEDS: busPIRone HCL 10 MG TABLET (FP) PO SCH ×3 (00:09→21:32)
[2019-05-16] MEDS: CLOTRIMAZOLE 1% CREAM 15 GM TUBE TP SCH ×4 (00:10→21:32)
[2019-05-16] MEDS: INSULIN SLIDING SCALE (NOVOLOG) 1 VIAL SQ SCH ×5 (00:21→22:35)
[2019-05-16] MEDS ORDERED: ACETAMINOPHEN 325 MG TABLET (FP) PO ONE ×2 (00:33→23:27)
[2019-05-16] MEDS: HYDROmorphone HCl 2 MG/ML VIAL IVPB PRN ×4 (03:38→20:45)
[2019-05-16] MEDS: SODIUM BICARBONATE 650 MG TABLET PO SCH ×3 (06:43→21:31)
[2019-05-16] MEDS: LEVOTHYROXINE NA 75 MCG TABLET (FP) PO SCH (06:43)
[2019-05-16] MEDS: DOCUSATE SODIUM 100 MG CAPSULE (FP) PO SCH ×3 (06:43→21:31)
[2019-05-16 07:30] LABS: BASO % 0.7 % (0-2.0); EOS % 4.5 % (0-4.5); HEMATOCRIT 26.7 % (32.4-45.2); HEMOGLOBIN 8.8 GM/dL (10.7-15.3); LYMPH % 12.4 % (8-40); MCH 30.5 pg (25.7-33.7); MCHC 32.9 g/dl (32.0-36.0); MEAN CELL VOLUME 92.8 fl (80-96); MEAN PLT VOLUME 9.2 fl (7.5-11.1); MONO % 6.3 % (3.8-10.2); NEUT % 76.1 % (42.8-82.8); PLATELET COUNT 215 K/MM3 (134-434); RBC 2.88 M/mm3 (3.60-5.2); WHITE BLOOD COUNT 12.4 K/mm3 (4.0-10.0)
--- NOTE | 2019-05-16 07:34 | PN ---
Progress Note, Physician Chief Complaint: EVENTS AND NOTES REVIEWED PATIENT IN BED WITH TACHCOLLAR NO FEVER NO CHILLS - Current Medication List Current Medications: Active Medications Albuterol Sulfate (Ventolin Hfa Inhaler -) 2 puff IH Q4H PRN PRN Reason: SHORT OF BREATH/WHEEZING Albuterol/Ipratropium (Duoneb -) 1 amp NEB RTID [facility] Last Admin: 05/15/19 22:25 Dose: 1 amp Alprazolam (Xanax -) 0.25 mg PO Q8H PRN PRN Reason: ANXIETY Last Admin: 05/16/19 00:03 Dose: 0.25 mg Buspirone HCl (Buspar -) 10 mg PO BID [facility] Last Admin: 05/16/19 00:09 Dose: 10 mg Cholecalciferol (Vitamin D3 -) 1,000 unit PO DAILY [facility] Last Admin: 05/15/19 10:24 Dose: 1,000 unit Clotrimazole (Lotrimin 1% Cream -) 1 applic TP BID [facility] Last Admin: 05/16/19 06:48 Dose: Not Given Docusate Sodium (Colace -) 100 mg PO TID [facility] Last Admin: 05/16/19 06:43 Dose: Not Given Doxepin HCl (Sinequan -) 25 mg PO HS [facility] Last Admin: 05/16/19 00:08 Dose: 25 mg Ferrous Sulfate (Feosol -) 325 mg PO BID [facility] Last Admin: 05/15/19 23:55 Dose: 325 mg Heparin Sodium (Porcine) (Heparin -) 1,000 unit IVPUSH PRN PRN PRN Reason: Heparin Heparin Sodium (Porcine) (Heparin -) 5,000 unit IVPUSH PRN PRN PRN Reason: Heparin Hydromorphone HCl (Dilaudid Vial -) 1 mg IVPB Q6H PRN PRN Reason: PAIN LEVEL 7 - 10 Last Admin: 05/16/19 03:38 Dose: 1 mg Heparin Sodium (Porcine) 25, (000 unit/ Sodium Chloride) 500 mls @ 16 mls/hr IV TITR [facility]; Protocol Last Admin: 05/15/19 10:45 Dose: 800 unit/hr, 16 mls/hr Insulin Aspart (Novolog Vial Sliding Scale -) 1 vial SQ ACHS [facility]; Protocol Last Admin: 05/16/19 06:53 Dose: Not Given Levothyroxine Sodium (Synthroid -) 75 mcg PO DAILY@0600 [facility] Last Admin: 05/16/19 06:43 Dose: 75 mcg Loperamide HCl (Imodium -) 2 mg PO Q8H PRN PRN Reason: DIARRHEA Montelukast Sodium (Singulair -) 10 mg PO HS [facility] Last Admin: 05/15/19 23:55 Dose: 10 mg Multivit/Ca Carb/B Cmplx/FA/Prenat (Nephro-Héctor -) 1 tablet PO DAILY [facility] Last Admin: 05/15/19 10:24 Dose: 1 tablet Nystatin (Nystop Powder -) 1 applic TP DAILY [facility] Last Admin: 05/15/19 11:38 Dose: Not Given Ranitidine HCl (Zantac -) 150 mg PO DAILY [facility] Last Admin: 05/15/19 10:24 Dose: 150 mg Rosuvastatin Calcium (Crestor -) 10 mg PO DAILY [facility] Last Admin: 05/15/19 10:24 Dose: 10 mg Sodium Bicarbonate (Sodium Bicarbonate -) 650 mg PO TID [facility] Last Admin: 05/16/19 06:43 Dose: 650 mg Topiramate (Topamax -) 100 mg PO DAILY [facility] Last Admin: 05/15/19 10:24 Dose: 100 mg Venlafaxine HCl (Effexor Xr -) 75 mg PO DAILY [facility] Last Admin: 05/15/19 10:24 Dose: 75 mg - Objective Vital Signs: Vital Signs Temperature 99.2 F 05/16/19 07:14 Pulse Rate 121 H 05/16/19 07:14 Respiratory Rate 20 05/16/19 07:14 Blood Pressure 125/67 05/16/19 07:14 O2 Sat by Pulse Oximetry (%) 98 05/15/19 16:44 Constitutional: Yes: Mild Distress Eyes: Yes: WNL HENT: Yes: WNL Neck: Yes: WNL Cardiovascular: Yes: Regular Rate and Rhythm Respiratory: Yes: Diminished, Other (TRACHCOLLAR) Gastrointestinal: Yes: Abdomen, Obese Genitourinary: Yes: Incontinence Musculoskeletal: Yes: Muscle Pain, Muscle Weakness Extremities: Yes: Other Edema: No Integumentary: Yes: Other Neurological: Yes: Pre-Existing Deficit ...Motor Strength: LLE, RLE Psychiatric: Yes: Other Labs: INR, PTT INR 1.07 (0.83-1.09) 05/15/19 03:00 Problem List - Problems (1) Bilateral closed proximal tibial fracture Code(s): S82.101A - UNSP FRACTURE OF UPPER END OF RIGHT TIBIA, INIT FOR CLOS FX ; S82.102A - UNSP FRACTURE OF UPPER END OF LEFT TIBIA, INIT FOR CLOS FX (2) Hx of longterm use of blood thinners Code(s): Z92.29 - PERSONAL HISTORY OF OTHER DRUG THERAPY (3) Acute and chronic respiratory failure with hypoxia Code(s): J96.21 - ACUTE AND CHRONIC RESPIRATORY FAILURE WITH HYPOXIA (4) Acute wheezy bronchitis Code(s): J20.9 - ACUTE BRONCHITIS, UNSPECIFIED (5) Afib Code(s): I48.91 - UNSPECIFIED ATRIAL FIBRILLATION (6) Bacteremia due to methicillin resistant Staphylococcus aureus Code(s): R78.81 - BACTEREMIA (7) Bipolar 1 disorder Code(s): F31.9 - BIPOLAR DISORDER, UNSPECIFIED (8) Diabetes Code(s): E11.9 - TYPE 2 DIABETES MELLITUS WITHOUT COMPLICATIONS (9) Anxiety Code(s): F41.9 - ANXIETY DISORDER, UNSPECIFIED Assessment/Plan PAIN CONTROL ORTHOPEDIC F/U APPRECIATED PULM EVAL CHRONIC PULMONARY DISEASE CHANGE BACK TO ELIQUIS AND STOP HEPARIN DRIP IF NO SURGICAL PROCEDURES NEEDED [facility]
[2019-05-16] MEDS: ALBUTEROL SO4 2.5/IPRATROPIUM 0.5 INH SOL 3 ML VIAL.NEB. NEB SCH ×3 (08:00→20:23)
[2019-05-16 08:26] LABS: BLOOD UREA NITROGEN 28.7 mg/dL (7-18); CALCIUM 7.7 mg/dL (8.5-10.1)
[2019-05-16 08:32] LABS: POTASSIUM 2.8 mmol/L (3.5-5.1)
--- NOTE | 2019-05-16 09:02 | CON.PULM ---
Consult Consult Specialty:: PULM/CCM Referred by:: IRINEO Reason for Consultation:: Chronic Respiratory Failure - History of Present Illness Chief Complaint: S/P Fall History of Present Illness: 53 F, very well known to our service from multiple admissions. Chronic respiratory failure, Tracheostomy, O2 dependent COPD, Asthma, OSAS, HTN, HLD, Afib, GI Bleed, Uterine CA, and multiple prolonged ICU admissions. Admitted via the ER due to recent fall that resulted in knee pain and the inability to ambulate. Apparently she fell out of a cab onto her knees. No head trauma or LOC. Breathing has been stable. Some chronic bronchitic symptoms. No CP or SOB. CXR: poor inspiratory effort / no acute process / do not feel the mediastinum is widened - History Source History Provided By: Patient Limitations to Obtaining History: No Limitations - Past Medical History Cardio/Vascular: Yes: AFIB (Paroxysmal), HTN, Hyperlipdemia Pulmonary: Yes: Asthma, Bronchitis, COPD, O2 Dependent, Pneumonia, Previously Intubated, Sleep Apnea, Other (Trach). No: Cancer, Pulmonary Embolus, Pulmonary Fibrosis Gastrointestinal: Yes: GI Bleed Hepatobiliary: Yes: Other (Fatty Liver). No: Cirrhosis Renal/: Yes: Cancer (Uterine), Other ([place] in the past) Infectious Disease: Yes: C-Diff (june 2014), Other (Osteomyelitis of thoracic spine) Psych: Yes: Anxiety, Bipolar, Depression Musculoskeletal: Yes: Chronic low back pain, Other (multiple vertebral fractures ) Endocrine: Yes: Diabetes Mellitus, Hypothyroidism Additional Medical History: Frequent c/o abdominal pain-extensive w/u in the past negative. Presumed adhesions from prior surgeries. - Past Surgical History Past Surgical History: Yes: Appendectomy, Colectomy (By description, right colon resection with anastamosis noted on colonoscopy 2013), Hysterectomy (ADE/ BSO), Stent - Alcohol/Substance Use Hx Alcohol Use: No History of Substance Use: reports: Prescription - Smoking History Smoking history: Never smoked Have you smoked in the past 12 months: No Aproximately how many cigarettes per day: 3 If you are a former smoker, when did you quit?: 1997 - Social History Usual Living Arrangement: [facility] 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) History of Recent Travel: No Home Medications - Allergies Allergies/Adverse Reactions: Allergies Allergy/AdvReac Type Severity Reaction Status Date / Time oxycodone [Oxycodone] Allergy Severe Nausea Verified 12/27/18 11:33 oxycodone HCl [From Percocet] Allergy Severe Nausea Verified 12/27/18 11:33 aspirin Allergy Mild Verified 12/27/18 11:33 blueberry [Blueberry] Allergy Mild Swelling Verified 12/27/18 11:33 fentanyl Allergy Mild Vomiting Verified 12/27/18 11:33 ibuprofen Allergy Swelling Verified 12/27/18 11:33 aspartame AdvReac Mild Itching Verified 12/27/18 11:33 - Home Medications Home Medications: Ambulatory Orders Albuterol Sulfate Inhaler - [Ventolin HFA Inhaler -] 2 puff IH Q4H PRN #0 inhaler 11/29/16 Acetaminophen [Tylenol .Regular Strength -] 650 mg PO Q6H PRN #0 tablet Apixaban [Eliquis -] 5 mg PO BID tablet 04/29/17 Baclofen 10 mg PO TID 07/09/18 Rosuvastatin Calcium [Crestor] 10 mg PO DAILY 07/09/18 Montelukast Na [Singulair -] 10 mg PO HS 08/07/18 Topiramate [Topamax -] 100 mg PO DAILY #30 tablet 08/15/18 Alprazolam [Xanax] 0.25 mg PO Q8H PRN tablet MDD 3 10/23/18 Cholecalciferol (Vitamin D3) [Vitamin D3 -] 1,000 unit PO DAILY tab 11/09/18 Doxepin HCl [Sinequan -] 25 mg PO HS capsule 11/09/18 Ferrous Sulfate [Feosol] 325 mg PO BID ud 11/09/18 Nystatin Powder [Nystop Powder -] 1 applic TP DAILY applic 11/09/18 HYDROmorphone [Dilaudid -] 2 mg PO Q4H PRN 12/12/18 Insulin Sliding Scale [Novolog Vial Sliding Scale -] 0 units SQ TIDAC 12/12/18 Pramipexole Di-HCl [Mirapex] 0.5 mg PO TID 12/12/18 Ranitidine [Zantac -] 150 mg PO DAILY 12/12/18 Venlafaxine HCl ER [Effexor Xr -] 75 mg PO DAILY 12/12/18 Vitamin B Comp W-C [Nephro-Héctor -] 1 tablet PO DAILY 12/12/18 Albuterol 2.5/Ipratropium 0.5 [Duoneb -] 1 amp [facility] RTID amp 12/23/18 Lactobacillus Acidophilus [Bacid -] 1 tab PO DAILY tab 12/23/18 Sodium Bicarbonate - 650 mg PO TID #30 tablet MDD 3 12/23/18 Acetaminophen [Tylenol .Regular Strength -] 650 mg PO Q6HPO PRN tablet Albuterol 2.5/Ipratropium 0.5 [Duoneb -] 1 amp [facility] RTID amp 12/31/18 Alprazolam [Xanax] 0.25 mg PO Q8H PRN tablet MDD 3 12/31/18 Apixaban [Eliquis -] 5 mg PO BID tablet 12/31/18 Buspirone HCl [Buspar -] 10 mg PO BID tablet 12/31/18 Clotrimazole [Lotrimin -] 1 applic TP BID tube 12/31/18 Diphenhydramine HCl [Benadryl Capsule -] 25 mg PO Q6H PRN capsule 12/31/18 Ferrous Sulfate [Feosol] 325 mg PO BIDWM ud 12/31/18 HYDROmorphone [Dilaudid -] 2 mg PO Q6H PRN tablet MDD 4 12/31/18 Insulin Sliding Scale [Novolog Vial Sliding Scale -] 1 vial SQ ACHS units 12/31 Levothyroxine [Synthroid -] 75 mcg PO DAILY@0600 tablet 12/31/18 Loperamide HCl [Imodium -] 2 mg PO Q8H PRN capsule 12/31/18 Nystatin Powder [Nystop Powder -] 1 applic TP DAILY applic 12/31/18 Pramipexole Dihydrochloride [Mirapex -] 0.25 mg PO TID tablet 12/31/18 Venlafaxine HCl ER [Effexor Xr -] 75 mg PO DAILY@0600 cap.er.24h 12/31/18 Family Disease History - Family Disease History Family Disease History: Diabetes: Mother (Alive: heart surgery), Heart Disease: Mother, CA: Father (: leukemia), Other: Brother (2,Healthy), Sister (1, Healthy) Review of Systems - Review of Systems Constitutional: reports: Malaise. denies: Chills, Fever, Night Sweats Eyes: reports: No Symptoms HENT: reports: No Symptoms Neck: reports: No Symptoms Cardiovascular: denies: Chest Pain, Edema, Palpitations, Shortness of Breath Respiratory: reports: Cough, Snoring, SOB on Exertion. denies: Hemoptysis, Orthopnea, PND, SOB, Wheezing Gastrointestinal: reports: No Symptoms Genitourinary: reports: No Symptoms Breasts: reports: No Symptoms Reported Musculoskeletal: reports: Back Pain, Extremity Pain, Joint Pain, Joint Swelling , Muscle Pain, Muscle Cramps Integumentary: reports: No Symptoms Neurological: reports: No Symptoms Endocrine: reports: No Symptoms Hematology/Lymphatic: reports: No Symptoms Psychiatric: reports: No Symptoms Physical Exam Vital Sings: Vital Signs Temperature 99.2 F 05/16/19 07:14 Pulse Rate 121 H 05/16/19 07:14 Respiratory Rate 20 05/16/19 07:14 Blood Pressure 125/67 05/16/19 07:14 O2 Sat by Pulse Oximetry (%) 98 05/15/19 16:44 Constitutional: Yes: No Distress Eyes: Yes: Conjunctiva Clear, EOM Intact HENT: Yes: Atraumatic, Normocephalic Neck: Yes: Trachea Midline, Other (Trach ) Cardiovascular: Yes: Pulse Irregular Respiratory: Yes: Cough, Diminished. No: Accessory Muscle Use, Rales, Rhonchi, SOB, SOB on Exertion, Stridor, Tachypnea, Wheezes ...Inspection: Yes: WNL ...Clubbing: No Gastrointestinal: Yes: Normal Bowel Sounds, Soft, Abdomen, Obese Renal/: Yes: WNL Musculoskeletal: Yes: Back Pain, Joint Stiffness, Joint Swelling, Muscle Pain Extremities: Yes: WNL Edema: Yes Peripheral Pulses WNL: Yes Integumentary: Yes: WNL Neurological: Yes: WNL, Alert, Oriented ...Motor Strength: WNL Psychiatric: Yes: WNL, Alert, Oriented Labs: CBC, BMP 05/16/19 06:15 05/16/19 06:15 Imaging - Results Chest X-ray: Report Reviewed, Image Reviewed Problem List - Problems (1) Sleep apnea Code(s): G47.30 - SLEEP APNEA, UNSPECIFIED (2) Tibial plateau fracture Code(s): S82.143A - DISPLACED BICONDYLAR FRACTURE OF UNSP TIBIA, INIT (3) Afib Code(s): I48.91 - UNSPECIFIED ATRIAL FIBRILLATION (4) Anxiety Code(s): F41.9 - ANXIETY DISORDER, UNSPECIFIED (5) Back pain Code(s): M54.9 - DORSALGIA, UNSPECIFIED (6) Bipolar 1 disorder Code(s): F31.9 - BIPOLAR DISORDER, UNSPECIFIED (7) Chronic respiratory failure Code(s): J96.10 - CHRONIC RESPIRATORY FAILURE, UNSP W HYPOXIA OR HYPERCAPNIA (8) Diabetes Code(s): E11.9 - TYPE 2 DIABETES MELLITUS WITHOUT COMPLICATIONS (9) Hypothyroid Code(s): E03.9 - HYPOTHYROIDISM, UNSPECIFIED Qualifiers: (10) Insomnia disorder Code(s): G47.00 - INSOMNIA, UNSPECIFIED (11) Knee pain Code(s): M25.569 - PAIN IN UNSPECIFIED KNEE (12) Migraine headache Code(s): G43.909 - MIGRAINE, UNSP, NOT INTRACTABLE, WITHOUT STATUS MIGRAINOSUS (13) Afib Code(s): I48.91 - UNSPECIFIED ATRIAL FIBRILLATION (14) Asthma Code(s): J45.909 - UNSPECIFIED ASTHMA, UNCOMPLICATED (15) COPD (chronic obstructive pulmonary disease) Code(s): J44.9 - CHRONIC OBSTRUCTIVE PULMONARY DISEASE, UNSPECIFIED (16) Chronic back pain Code(s): M54.9 - DORSALGIA, UNSPECIFIED; G89.29 - OTHER CHRONIC PAIN (17) Chronic pain disorder Code(s): G89.4 - CHRONIC PAIN SYNDROME (18) GERD (gastroesophageal reflux disease) Code(s): K21.9 - GASTRO-ESOPHAGEAL REFLUX DISEASE WITHOUT ESOPHAGITIS (19) Hyperlipidemia Code(s): E78.5 - HYPERLIPIDEMIA, UNSPECIFIED Qualifiers: Assessment/Plan Trach collar to maintain saturation BD TX PRN No indication for systemic steroids No indication for ABX Orthopedic evaluation in progress Do not feel additional radiographic imaging is required at this time Thank you. Dr Castaneda
[2019-05-16] MEDS: VENLAFAXINE HCL 75 MG E.R. CAPSULES (FP) PO SCH (09:38)
[2019-05-16] MEDS: ROSUVASTATIN CA 10 MG TABLET (FP) PO SCH (09:38)
[2019-05-16] MEDS: RANITIDINE HCL 150 MG TABLET (FP) PO SCH (09:38)
[2019-05-16] MEDS: VITAMIN B COMP W-C 1 EA TABLET PO SCH (09:38)
[2019-05-16] MEDS: FERROUS SO4 325 MG TABLET (FP) PO SCH ×2 (09:38→21:31)
[2019-05-16] MEDS: TOPIRAMATE 100 MG TABLET PO SCH (09:39)
--- NOTE | 2019-05-16 09:42 | PN ---
Progress Note (short form) - Note Progress Note: Ortho Pt seen and examined s/p bilateral proximal tibia fxs Selected Entries 05/16/19 07:14 Temperature 99.2 F Pulse Rate 121 H Respiratory 20 Rate Blood Pressure 125/67 + swelling, + fx blisters, + ttp, decr rom, nvi xrays and CT show minimally displaced proximal tibia fx a/p Risks and benefits regarding surgical vs conservative treatment were d/w pt Pt refuse surgical treatment bilateral knee immobilizers at this time NWB once swelling decr will evaluate for cast pain control d/w Dr. Miller
[2019-05-16] MEDS ORDERED: POTASSIUM CHLORIDE TABS 20 MEQ TABLET.ER (FP) PO ONE (11:04)
[2019-05-16] MEDS: HEPARIN - 25,000 UNIT in SODIUM CHLORIDE 495 ML IV SCH ×2 (11:45→17:36)
[2019-05-16] MEDS: NYSTATIN POWDER 100,000 UNITS/GM - 15 GM TOPICAL POWDER TP SCH ×2 (12:31→15:10)
[2019-05-16] MEDS: CHOLECALCIFEROL (VIT D3) 1,000 UNIT (25 MCG) TABLET PO SCH (12:31)
--- NOTE | 2019-05-16 14:24 | CONS ---
ORTHOPAEDIC CONSULTATION [facility] DATE OF CONSULTATION: 05/15/2019 HISTORY: Patient is a 53-year-old female, frequent patient of [facility], on a tracheostomy, chronic steroid use, who fell out of her wheelchair, landing on both of her legs, complaining of pain and swelling in both of her legs. PHYSICAL EXAMINATION: Skin: She has ecchymosis and swelling of the anterior aspect of the proximal tibia on both her legs, some blistering left side. Abdomen: Soft and nontender. Extremities: She has good motion of her ankles and toes. Otherwise, neurovascularly intact. DIAGNOSTIC DATA: X-rays taken today via the emergency room show a proximal right tibia-fibula fracture seen on AP x-ray and lateral. The left side did not get a formal x-ray but viewing the lateral of the side, you can see a left proximal tibia fracture as well, left side with slight angulation. Impression: Bilateral proximal tibia and left fibula fracture. Radiology reviewed and said that there might be a tibial plateau component as well. IMPRESSION: Fractures as described, bilateral tibia/fibula fractures, question of tibial plateau fracture. PLAN: Patient will be mobilized in a knee immobilizer for now bilaterally, and bilateral CAT scans will be ordered. Decide what to do with her after getting those scans. LONG RYAN M.D. [id number]
[2019-05-16 16:36] LABS: ALBUMIN 2.8 g/dl (3.4-5.0); BILIRUBIN,TOTAL 0.3 mg/dL (0.2-1); BLOOD UREA NITROGEN 23.3 mg/dL (7-18); CALCIUM 7.8 mg/dL (8.5-10.1); POTASSIUM 3.4 mmol/L (3.5-5.1); TOT PROT 5.8 g/dl (6.4-8.2)
[2019-05-16] MEDS: MONTELUKAST NA 10 MG TABLET PO SCH (21:32)
[2019-05-16] MEDS ORDERED: MELATONIN 5 MG TABLETS PO PRN (22:00)
[2019-05-17] MEDS: HYDROmorphone HCl 2 MG/ML VIAL IVPB PRN ×3 (02:19→20:42)
[2019-05-17] MEDS: INSULIN SLIDING SCALE (NOVOLOG) 1 VIAL SQ SCH ×4 (06:05→22:42)
[2019-05-17] MEDS: SODIUM BICARBONATE 650 MG TABLET PO SCH ×3 (06:07→22:36)
[2019-05-17] MEDS: DOCUSATE SODIUM 100 MG CAPSULE (FP) PO SCH ×3 (06:07→22:35)
[2019-05-17] MEDS: LEVOTHYROXINE NA 75 MCG TABLET (FP) PO SCH (06:07)
[2019-05-17] MEDS: ALBUTEROL SO4 2.5/IPRATROPIUM 0.5 INH SOL 3 ML VIAL.NEB. NEB SCH ×3 (07:25→20:40)
--- NOTE | 2019-05-17 07:34 | PN ---
Progress Note, Physician Chief Complaint: AWAKE CRYING SHE IS IN PAIN FEVER OVERNIGHT 100.9 DENIES CHEST PAIN OR SOB - Current Medication List Current Medications: Active Medications Albuterol Sulfate (Ventolin Hfa Inhaler -) 2 puff IH Q4H PRN PRN Reason: SHORT OF BREATH/WHEEZING Albuterol/Ipratropium (Duoneb -) 1 amp NEB RTID [facility] Last Admin: 05/16/19 20:23 Dose: Not Given Alprazolam (Xanax -) 0.25 mg PO Q8H PRN PRN Reason: ANXIETY Last Admin: 05/16/19 21:31 Dose: 0.25 mg Buspirone HCl (Buspar -) 10 mg PO BID [facility] Last Admin: 05/16/19 21:32 Dose: 10 mg Cholecalciferol (Vitamin D3 -) 1,000 unit PO DAILY [facility] Last Admin: 05/16/19 12:31 Dose: 1,000 unit Clotrimazole (Lotrimin 1% Cream -) 1 applic TP BID [facility] Last Admin: 05/16/19 21:32 Dose: 1 applic Docusate Sodium (Colace -) 100 mg PO TID [facility] Last Admin: 05/17/19 06:07 Dose: 100 mg Doxepin HCl (Sinequan -) 25 mg PO HS [facility] Last Admin: 05/16/19 21:32 Dose: 25 mg Ferrous Sulfate (Feosol -) 325 mg PO BID [facility] Last Admin: 05/16/19 21:31 Dose: 325 mg Heparin Sodium (Porcine) (Heparin -) 1,000 unit IVPUSH PRN PRN PRN Reason: Heparin Last Admin: 05/16/19 07:56 Dose: 1,000 unit Heparin Sodium (Porcine) (Heparin -) 5,000 unit IVPUSH PRN PRN PRN Reason: Heparin Hydromorphone HCl (Dilaudid Vial -) 1 mg IVPB Q6H PRN PRN Reason: PAIN LEVEL 7 - 10 Last Admin: 05/17/19 02:19 Dose: 1 mg Heparin Sodium (Porcine) 25, (000 unit/ Sodium Chloride) 500 mls @ 16 mls/hr IV TITR [facility]; Protocol Last Admin: 05/16/19 17:36 Dose: 900 unit/hr, 18 mls/hr Insulin Aspart (Novolog Vial Sliding Scale -) 1 vial SQ ACHS [facility]; Protocol Last Admin: 05/17/19 06:05 Dose: Not Given Levothyroxine Sodium (Synthroid -) 75 mcg PO DAILY@0600 [facility] Last Admin: 05/17/19 06:07 Dose: 75 mcg Loperamide HCl (Imodium -) 2 mg PO Q8H PRN PRN Reason: DIARRHEA Melatonin (Melatonin) 5 mg PO HS PRN PRN Reason: INSOMNIA Last Admin: 05/16/19 22:32 Dose: 5 mg Montelukast Sodium (Singulair -) 10 mg PO HS [facility] Last Admin: 05/16/19 21:32 Dose: 10 mg Multivit/Ca Carb/B Cmplx/FA/Prenat (Nephro-Héctor -) 1 tablet PO DAILY [facility] Last Admin: 05/16/19 09:38 Dose: 1 tablet Nystatin (Nystop Powder -) 1 applic TP DAILY [facility] Last Admin: 05/16/19 15:10 Dose: 1 applic Ranitidine HCl (Zantac -) 150 mg PO DAILY [facility] Last Admin: 05/16/19 09:38 Dose: 150 mg Rosuvastatin Calcium (Crestor -) 10 mg PO DAILY [facility] Last Admin: 05/16/19 09:38 Dose: 10 mg Sodium Bicarbonate (Sodium Bicarbonate -) 650 mg PO TID [facility] Last Admin: 05/17/19 06:07 Dose: 650 mg Topiramate (Topamax -) 100 mg PO DAILY [facility] Last Admin: 05/16/19 09:39 Dose: 100 mg Venlafaxine HCl (Effexor Xr -) 75 mg PO DAILY [facility] Last Admin: 05/16/19 09:38 Dose: 75 mg - Objective Vital Signs: Vital Signs Temperature 98.4 F 05/17/19 06:00 Pulse Rate 122 H 05/17/19 06:00 Respiratory Rate 20 05/17/19 06:00 Blood Pressure 132/72 05/17/19 06:00 O2 Sat by Pulse Oximetry (%) 98 05/16/19 21:00 Constitutional: Yes: Mild Distress Cardiovascular: Yes: Regular Rate and Rhythm Respiratory: Yes: Diminished, Other (TRACHCOLLAR) Gastrointestinal: Yes: Abdomen, Obese Genitourinary: Yes: Incontinence Musculoskeletal: Yes: Muscle Pain, Muscle Weakness Extremities: Yes: Other Edema: No Integumentary: Yes: Other Wound/Incision: Yes: Clean/Dry Neurological: Yes: Pre-Existing Deficit ...Motor Strength: LLE, RLE Psychiatric: Yes: Other Labs: CBC, BMP 05/16/19 06:15 05/16/19 15:00 INR, PTT INR 1.07 (0.83-1.09) 05/15/19 03:00 Problem List - Problems (1) Bilateral closed proximal tibial fracture Code(s): S82.101A - UNSP FRACTURE OF UPPER END OF RIGHT TIBIA, INIT FOR CLOS FX ; S82.102A - UNSP FRACTURE OF UPPER END OF LEFT TIBIA, INIT FOR CLOS FX (2) 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 Code(s): Z92.29 - PERSONAL HISTORY OF OTHER DRUG THERAPY (3) Acute and chronic respiratory failure with hypoxia Code(s): J96.21 - ACUTE AND CHRONIC RESPIRATORY FAILURE WITH HYPOXIA (4) Acute wheezy bronchitis Code(s): J20.9 - ACUTE BRONCHITIS, UNSPECIFIED (5) Afib Code(s): I48.91 - UNSPECIFIED ATRIAL FIBRILLATION (6) Bacteremia due to methicillin resistant Staphylococcus aureus Code(s): R78.81 - BACTEREMIA (7) Bipolar 1 disorder Code(s): F31.9 - BIPOLAR DISORDER, UNSPECIFIED (8) Diabetes Code(s): E11.9 - TYPE 2 DIABETES MELLITUS WITHOUT COMPLICATIONS (9) Anxiety Code(s): F41.9 - ANXIETY DISORDER, UNSPECIFIED Assessment/Plan PAIN CONTROL WILL INCREASE DILAUDID 2MG Q 6 HRS STOP MELATONIN START AMBIEN PER PATIENTS DEMANDING REQUEST ANEMIA WORSE, STOOL GUAC PENDING RECHECK CBC TODAY ORTHOPEDIC F/U APPRECIATED PULM EVAL CHRONIC PULMONARY DISEASE CHANGE BACK TO ELIQUIS AND STOP HEPARIN DRIP IF NO SURGICAL PROCEDURES NEEDED [facility]
[2019-05-17] MEDS ORDERED: HYDROmorphone HCl 2 MG/ML VIAL IVPB ONE (08:00)
[2019-05-17 08:26] LABS: HEMATOCRIT 24.4 % (32.4-45.2); HEMOGLOBIN 8.1 GM/dL (10.7-15.3); MCH 30.6 pg (25.7-33.7); MCHC 33.2 g/dl (32.0-36.0); MEAN PLT VOLUME 8.8 fl (7.5-11.1); RBC 2.66 M/mm3 (3.60-5.2); RDW 15.2 % (11.6-15.6); WHITE BLOOD COUNT 11.7 K/mm3 (4.0-10.0)
[2019-05-17 09:01] LABS: PLATELET COUNT 200 K/MM3 (134-434)
[2019-05-17] MEDS ORDERED: PT OWN MED DRAWER 7, Y5N ONE ×2 (09:12→11:47)
--- NOTE | 2019-05-17 10:05 | PN ---
Progress Note (short form) - Note Progress Note: Clinically stable. No CP or SOB. Upset with staff. Refusing medical interventions. Intake & Output 05/14/19 05/15/19 05/16/19 05/17/19 23:59 23:59 23:59 23:59 Intake Total 230 276 310 Balance 230 276 310 Weight 145 lb Last Vital Signs Temp Pulse Resp BP Pulse Ox 98.4 F 122 H 20 132/72 98 05/17/19 06:00 05/17/19 06:00 05/17/19 06:00 05/17/19 06:00 05/16/19 21:00 Active Medications Albuterol Sulfate (Ventolin Hfa Inhaler -) 2 puff IH Q4H PRN PRN Reason: SHORT OF BREATH/WHEEZING Albuterol/Ipratropium (Duoneb -) 1 amp NEB RTID [facility] Last Admin: 05/17/19 07:25 Dose: 1 amp Alprazolam (Xanax -) 0.25 mg PO Q8H PRN PRN Reason: ANXIETY Last Admin: 05/16/19 21:31 Dose: 0.25 mg Buspirone HCl (Buspar -) 10 mg PO BID [facility] Last Admin: 05/16/19 21:32 Dose: 10 mg Cholecalciferol (Vitamin D3 -) 1,000 unit PO DAILY [facility] Last Admin: 05/16/19 12:31 Dose: 1,000 unit Clotrimazole (Lotrimin 1% Cream -) 1 applic TP BID [facility] Last Admin: 05/16/19 21:32 Dose: 1 applic Docusate Sodium (Colace -) 100 mg PO TID [facility] Last Admin: 05/17/19 06:07 Dose: 100 mg Ferrous Sulfate (Feosol -) 325 mg PO BID [facility] Last Admin: 05/16/19 21:31 Dose: 325 mg Heparin Sodium (Porcine) (Heparin -) 1,000 unit IVPUSH PRN PRN PRN Reason: Heparin Last Admin: 05/16/19 07:56 Dose: 1,000 unit Heparin Sodium (Porcine) (Heparin -) 5,000 unit IVPUSH PRN PRN PRN Reason: Heparin Hydromorphone HCl (Dilaudid Vial -) 1 mg IVPB Q6H PRN PRN Reason: PAIN LEVEL 7 - 10 Last Admin: 05/17/19 02:19 Dose: 1 mg Hydromorphone HCl (Dilaudid Vial -) 2 mg IVPB Q6H PRN PRN Reason: PAIN LEVEL 7 - 10 Heparin Sodium (Porcine) 25, (000 unit/ Sodium Chloride) 500 mls @ 16 mls/hr IV TITR [facility]; Protocol Last Admin: 05/16/19 17:36 Dose: 900 unit/hr, 18 mls/hr Insulin Aspart (Novolog Vial Sliding Scale -) 1 vial SQ ACHS [facility]; Protocol Last Admin: 05/17/19 06:05 Dose: Not Given Levothyroxine Sodium (Synthroid -) 75 mcg PO DAILY@0600 [facility] Last Admin: 05/17/19 06:07 Dose: 75 mcg Loperamide HCl (Imodium -) 2 mg PO Q8H PRN PRN Reason: DIARRHEA Montelukast Sodium (Singulair -) 10 mg PO HS [facility] Last Admin: 05/16/19 21:32 Dose: 10 mg Multivit/Ca Carb/B Cmplx/FA/Prenat (Nephro-Héctor -) 1 tablet PO DAILY [facility] Last Admin: 05/16/19 09:38 Dose: 1 tablet Nystatin (Nystop Powder -) 1 applic TP DAILY [facility] Last Admin: 05/16/19 15:10 Dose: 1 applic Ranitidine HCl (Zantac -) 150 mg PO DAILY [facility] Last Admin: 05/16/19 09:38 Dose: 150 mg Rosuvastatin Calcium (Crestor -) 10 mg PO DAILY [facility] Last Admin: 05/16/19 09:38 Dose: 10 mg Sodium Bicarbonate (Sodium Bicarbonate -) 650 mg PO TID [facility] Last Admin: 05/17/19 06:07 Dose: 650 mg Topiramate (Topamax -) 100 mg PO DAILY [facility] Last Admin: 05/16/19 09:39 Dose: 100 mg Venlafaxine HCl (Effexor Xr -) 75 mg PO DAILY [facility] Last Admin: 05/16/19 09:38 Dose: 75 mg Zolpidem Tartrate (Ambien -) 5 mg PO HS PRN PRN Reason: INSOMNIA Constitutional: Yes: No Distress Eyes: Yes: Conjunctiva Clear, EOM Intact HENT: Yes: Atraumatic, Normocephalic Neck: Yes: Trachea Midline, Other (Trach ) Cardiovascular: Yes: Pulse Irregular Respiratory: Yes: Cough, Diminished. No: Accessory Muscle Use, Rales, Rhonchi, SOB, SOB on Exertion, Stridor, Tachypnea, Wheezes ...Inspection: Yes: WNL ...Clubbing: No Gastrointestinal: Yes: Normal Bowel Sounds, Soft, Abdomen, Obese Renal/: Yes: WNL Musculoskeletal: Yes: Back Pain, Joint Stiffness, Joint Swelling, Muscle Pain Extremities: Yes: WNL Edema: Yes Peripheral Pulses WNL: Yes Integumentary: Yes: WNL Neurological: Yes: WNL, Alert, Oriented ...Motor Strength: WNL Psychiatric: Yes: WNL, Alert, Oriented Labs: Laboratory Results - last 24 hr 05/16/19 05/16/19 05/16/19 12:30 15:00 15:00 WBC RBC Hgb Hct MCV MCH MCHC RDW Plt Count MPV PTT (Actin FS) 51.4 H Sodium 138 Potassium 3.4 L Chloride 105 Carbon Dioxide 24 Anion Gap 8 BUN 23.3 H Creatinine 1.0 Est GFR (CKD-EPI)AfAm 75.54 Est GFR (CKD-EPI)NonAf 65.18 POC Glucometer 228 Random Glucose 199 H Calcium 7.8 L Total Bilirubin 0.3 AST 22 ALT 23 Alkaline Phosphatase 118 H Total Protein 5.8 L Albumin 2.8 L 05/16/19 05/16/19 05/17/19 17:40 22:34 05:50 WBC RBC Hgb Hct MCV MCH MCHC RDW Plt Count MPV PTT (Actin FS) Sodium Potassium Chloride Carbon Dioxide Anion Gap BUN Creatinine Est GFR (CKD-EPI)AfAm Est GFR (CKD-EPI)NonAf POC Glucometer 206 169 144 Random Glucose Calcium Total Bilirubin AST ALT Alkaline Phosphatase Total Protein Albumin 05/17/19 07:58 WBC 11.7 H RBC 2.66 L Hgb 8.1 L Hct 24.4 L MCV 92.0 MCH 30.6 MCHC 33.2 RDW 15.2 Plt Count 200 MPV 8.8 PTT (Actin FS) Sodium Potassium Chloride Carbon Dioxide Anion Gap BUN Creatinine Est GFR (CKD-EPI)AfAm Est GFR (CKD-EPI)NonAf POC Glucometer Random Glucose Calcium Total Bilirubin AST ALT Alkaline Phosphatase Total Protein Albumin Problem List - Problems (1) Sleep apnea Code(s): G47.30 - SLEEP APNEA, UNSPECIFIED (2) Tibial plateau fracture Code(s): S82.143A - DISPLACED BICONDYLAR FRACTURE OF UNSP TIBIA, INIT (3) Afib Code(s): I48.91 - UNSPECIFIED ATRIAL FIBRILLATION (4) Anxiety Code(s): F41.9 - ANXIETY DISORDER, UNSPECIFIED (5) Back pain Code(s): M54.9 - DORSALGIA, UNSPECIFIED (6) Bipolar 1 disorder Code(s): F31.9 - BIPOLAR DISORDER, UNSPECIFIED (7) Chronic respiratory failure Code(s): J96.10 - CHRONIC RESPIRATORY FAILURE, UNSP W HYPOXIA OR HYPERCAPNIA (8) Diabetes Code(s): E11.9 - TYPE 2 DIABETES MELLITUS WITHOUT COMPLICATIONS (9) Hypothyroid Code(s): E03.9 - HYPOTHYROIDISM, UNSPECIFIED Qualifiers: (10) Insomnia disorder Code(s): G47.00 - INSOMNIA, UNSPECIFIED (11) Knee pain Code(s): M25.569 - PAIN IN UNSPECIFIED KNEE (12) Migraine headache Code(s): G43.909 - MIGRAINE, UNSP, NOT INTRACTABLE, WITHOUT STATUS MIGRAINOSUS (13) Afib Code(s): I48.91 - UNSPECIFIED ATRIAL FIBRILLATION (14) Asthma Code(s): J45.909 - UNSPECIFIED ASTHMA, UNCOMPLICATED (15) COPD (chronic obstructive pulmonary disease) Code(s): J44.9 - CHRONIC OBSTRUCTIVE PULMONARY DISEASE, UNSPECIFIED (16) Chronic back pain Code(s): M54.9 - DORSALGIA, UNSPECIFIED; G89.29 - OTHER CHRONIC PAIN (17) Chronic pain disorder Code(s): G89.4 - CHRONIC PAIN SYNDROME (18) GERD (gastroesophageal reflux disease) Code(s): K21.9 - GASTRO-ESOPHAGEAL REFLUX DISEASE WITHOUT ESOPHAGITIS (19) Hyperlipidemia Code(s): E78.5 - HYPERLIPIDEMIA, UNSPECIFIED Qualifiers: Assessment/Plan Trach collar to maintain saturation BD TX PRN No indication for systemic steroids No indication for ABX Orthopedic management in progress Do not feel additional radiographic imaging is required at this time No Pulmonary contraindication for D/C Dr Castaneda Problem List - Problems (1) Sleep apnea Code(s): G47.30 - SLEEP APNEA, UNSPECIFIED (2) Tibial plateau fracture Code(s): S82.143A - DISPLACED BICONDYLAR FRACTURE OF UNSP TIBIA, INIT (3) Afib Code(s): I48.91 - UNSPECIFIED ATRIAL FIBRILLATION (4) Anxiety Code(s): F41.9 - ANXIETY DISORDER, UNSPECIFIED (5) Back pain Code(s): M54.9 - DORSALGIA, UNSPECIFIED (6) Bipolar 1 disorder Code(s): F31.9 - BIPOLAR DISORDER, UNSPECIFIED (7) Chronic respiratory failure Code(s): J96.10 - CHRONIC RESPIRATORY FAILURE, UNSP W HYPOXIA OR HYPERCAPNIA (8) Diabetes Code(s): E11.9 - TYPE 2 DIABETES MELLITUS WITHOUT COMPLICATIONS (9) Hypothyroid Code(s): E03.9 - HYPOTHYROIDISM, UNSPECIFIED Qualifiers: (10) Insomnia disorder Code(s): G47.00 - INSOMNIA, UNSPECIFIED (11) Knee pain Code(s): M25.569 - PAIN IN UNSPECIFIED KNEE (12) Migraine headache Code(s): G43.909 - MIGRAINE, UNSP, NOT INTRACTABLE, WITHOUT STATUS MIGRAINOSUS (13) Afib Code(s): I48.91 - UNSPECIFIED ATRIAL FIBRILLATION (14) Asthma Code(s): J45.909 - UNSPECIFIED ASTHMA, UNCOMPLICATED (15) COPD (chronic obstructive pulmonary disease) Code(s): J44.9 - CHRONIC OBSTRUCTIVE PULMONARY DISEASE, UNSPECIFIED (16) Chronic back pain Code(s): M54.9 - DORSALGIA, UNSPECIFIED; G89.29 - OTHER CHRONIC PAIN (17) Chronic pain disorder Code(s): G89.4 - CHRONIC PAIN SYNDROME (18) GERD (gastroesophageal reflux disease) Code(s): K21.9 - GASTRO-ESOPHAGEAL REFLUX DISEASE WITHOUT ESOPHAGITIS (19) Hyperlipidemia Code(s): E78.5 - HYPERLIPIDEMIA, UNSPECIFIED Qualifiers:
[2019-05-17] MEDS: NYSTATIN POWDER 100,000 UNITS/GM - 15 GM TOPICAL POWDER TP SCH (10:18)
[2019-05-17] MEDS: TOPIRAMATE 100 MG TABLET PO SCH (10:18)
[2019-05-17] MEDS: CHOLECALCIFEROL (VIT D3) 1,000 UNIT (25 MCG) TABLET PO SCH (10:19)
[2019-05-17] MEDS: FERROUS SO4 325 MG TABLET (FP) PO SCH ×2 (10:19→22:36)
[2019-05-17] MEDS: VITAMIN B COMP W-C 1 EA TABLET PO SCH (10:19)
[2019-05-17] MEDS: VENLAFAXINE HCL 75 MG E.R. CAPSULES (FP) PO SCH (10:19)
[2019-05-17] MEDS: ROSUVASTATIN CA 10 MG TABLET (FP) PO SCH (10:19)
[2019-05-17] MEDS: RANITIDINE HCL 150 MG TABLET (FP) PO SCH (10:19)
[2019-05-17] MEDS: CLOTRIMAZOLE 1% CREAM 15 GM TUBE TP SCH ×2 (10:20→22:42)
[2019-05-17] MEDS: busPIRone HCL 10 MG TABLET (FP) PO SCH ×2 (12:09→22:36)
[2019-05-17] MEDS: HEPARIN - 25,000 UNIT in SODIUM CHLORIDE 495 ML IV SCH ×2 (12:58→22:33)
[2019-05-17] MEDS: ALPRAZolam 0.25 MG TABLET PO PRN ×3 (13:15→23:16)
[2019-05-17] MEDS: LOPERAMIDE HCL 2 MG CAPSULE PO PRN (17:10)
[2019-05-17] MEDS ORDERED: POTASSIUM CHLORIDE TABS 20 MEQ TABLET.ER (FP) PO ONE (17:47)
[2019-05-17] MEDS ORDERED: KCL 10 MEQ IVPB 10 MEQ/100 ML INFUS.BAG IVPB SCH (18:00)
[2019-05-17] MEDS ORDERED: POTASSIUM CHLORIDE TABS 10 MEQ TABLET.ER (FP) PO ONE (19:03)
[2019-05-17 20:32] LABS: HEMATOCRIT 22.5 % (32.4-45.2); HEMOGLOBIN 7.4 GM/dL (10.7-15.3); MCH 30.8 pg (25.7-33.7); MCHC 32.8 g/dl (32.0-36.0); MEAN CELL VOLUME 93.8 fl (80-96); PLATELET COUNT 189 K/MM3 (134-434); WHITE BLOOD COUNT 8.9 K/mm3 (4.0-10.0)
[2019-05-17] MEDS ORDERED: HYDROmorphone HCl 2 MG/ML VIAL IVPB PRN (20:33)
[2019-05-17] MEDS ORDERED: METOCLOPRAMIDE HCL INJECTION 10 MG/2 ML VIAL IVPUSH PRN (20:53)
[2019-05-17] MEDS ORDERED: ZOLPIDEM TARTRATE 5 MG TABLET PO PRN (22:00)
[2019-05-17] MEDS ORDERED: INSULIN (NOVOLOG) ASPART 100 UNITS/ML 10ML VIAL ONE (22:28)
[2019-05-17] MEDS: MONTELUKAST NA 10 MG TABLET PO SCH (22:36)
[2019-05-18] MEDS: HYDROmorphone HCl 2 MG/ML VIAL IVPB PRN ×3 (01:49→21:37)
[2019-05-18] MEDS: LEVOTHYROXINE NA 75 MCG TABLET (FP) PO SCH (05:35)
[2019-05-18] MEDS: DOCUSATE SODIUM 100 MG CAPSULE (FP) PO SCH ×3 (05:35→21:54)
[2019-05-18] MEDS: SODIUM BICARBONATE 650 MG TABLET PO SCH ×3 (05:35→21:37)
[2019-05-18 06:32] LABS: HEMATOCRIT 23.3 % (32.4-45.2); HEMOGLOBIN 7.7 GM/dL (10.7-15.3); MCH 31.2 pg (25.7-33.7); MCHC 33.2 g/dl (32.0-36.0); MEAN CELL VOLUME 94.1 fl (80-96); MEAN PLT VOLUME 8.8 fl (7.5-11.1); PLATELET COUNT 185 K/MM3 (134-434); RBC 2.48 M/mm3 (3.60-5.2); RDW 15.1 % (11.6-15.6)
[2019-05-18] MEDS: INSULIN SLIDING SCALE (NOVOLOG) 1 VIAL SQ SCH ×4 (06:44→21:53)
[2019-05-18 06:57] LABS: BLOOD UREA NITROGEN 9.9 mg/dL (7-18); CALCIUM 7.8 mg/dL (8.5-10.1); CREATININE 0.9 mg/dL (0.55-1.3); POTASSIUM 3.7 mmol/L (3.5-5.1)
[2019-05-18] MEDS: ALBUTEROL SO4 2.5/IPRATROPIUM 0.5 INH SOL 3 ML VIAL.NEB. NEB SCH ×3 (08:37→20:17)
--- NOTE | 2019-05-18 09:42 | PN ---
Progress Note, Physician Chief Complaint: AWAKE ALERT EVENTS AND NOTES REVIEWED PATIENT AGITATED AND HAVING EPISODES OF CONFUSION NO FEVER OR CHILLS H/H HAS DROPPED SIGNIFICANTLY NON-BLOODY DIARRHEA GUAC NEGATIVE - Current Medication List Current Medications: Active Medications Albuterol Sulfate (Ventolin Hfa Inhaler -) 2 puff IH Q4H PRN PRN Reason: SHORT OF BREATH/WHEEZING Albuterol/Ipratropium (Duoneb -) 1 amp NEB RTID [facility] Last Admin: 05/18/19 08:37 Dose: 1 amp Alprazolam (Xanax -) 0.25 mg PO Q8H PRN PRN Reason: ANXIETY Last Admin: 05/17/19 23:16 Dose: 0.25 mg Buspirone HCl (Buspar -) 10 mg PO BID [facility] Last Admin: 05/17/19 22:36 Dose: 10 mg Cholecalciferol (Vitamin D3 -) 1,000 unit PO DAILY [facility] Last Admin: 05/17/19 10:19 Dose: 1,000 unit Clotrimazole (Lotrimin 1% Cream -) 1 applic TP BID [facility] Last Admin: 05/17/19 22:42 Dose: 1 applic Docusate Sodium (Colace -) 100 mg PO TID [facility] Last Admin: 05/18/19 05:35 Dose: Not Given Ferrous Sulfate (Feosol -) 325 mg PO BID [facility] Last Admin: 05/17/19 22:36 Dose: 325 mg Hydromorphone HCl (Dilaudid Vial -) 2 mg IVPB Q6H PRN PRN Reason: PAIN LEVEL 7 - 10 Last Admin: 05/18/19 08:09 Dose: 2 mg Insulin Aspart (Novolog Vial Sliding Scale -) 1 vial SQ ACHS [facility]; Protocol Last Admin: 05/18/19 06:44 Dose: Not Given Levothyroxine Sodium (Synthroid -) 75 mcg PO DAILY@0600 [facility] Last Admin: 05/18/19 05:35 Dose: 75 mcg Loperamide HCl (Imodium -) 2 mg PO Q8H PRN PRN Reason: DIARRHEA Last Admin: 05/17/19 17:10 Dose: 2 mg Metoclopramide HCl (Reglan Injection -) 10 mg IVPUSH Q8H PRN PRN Reason: NAUSEA AND/OR VOMITING Montelukast Sodium (Singulair -) 10 mg PO HS [facility] Last Admin: 05/17/19 22:36 Dose: 10 mg Multivit/Ca Carb/B Cmplx/FA/Prenat (Nephro-Héctor -) 1 tablet PO DAILY [facility] Last Admin: 05/17/19 10:19 Dose: 1 tablet Nystatin (Nystop Powder -) 1 applic TP DAILY [facility] Last Admin: 05/17/19 10:18 Dose: 1 applic Ranitidine HCl (Zantac -) 150 mg PO DAILY [facility] Last Admin: 05/17/19 10:19 Dose: 150 mg Rosuvastatin Calcium (Crestor -) 10 mg PO DAILY [facility] Last Admin: 05/17/19 10:19 Dose: 10 mg Sodium Bicarbonate (Sodium Bicarbonate -) 650 mg PO TID [facility] Last Admin: 05/18/19 05:35 Dose: 650 mg Topiramate (Topamax -) 100 mg PO DAILY [facility] Last Admin: 05/17/19 10:18 Dose: 100 mg Venlafaxine HCl (Effexor Xr -) 75 mg PO DAILY [facility] Last Admin: 05/17/19 10:19 Dose: 75 mg Zolpidem Tartrate (Ambien -) 5 mg PO HS PRN PRN Reason: INSOMNIA Last Admin: 05/17/19 22:36 Dose: 5 mg - Objective Vital Signs: Vital Signs Temperature 98.2 F 05/18/19 06:00 Pulse Rate 113 H 05/18/19 06:41 Respiratory Rate 18 05/18/19 08:22 Blood Pressure 118/66 05/18/19 06:00 O2 Sat by Pulse Oximetry (%) 97 05/18/19 08:22 Constitutional: Yes: Mild Distress Eyes: Yes: WNL HENT: Yes: WNL Neck: Yes: WNL Cardiovascular: Yes: Pulse Irregular Respiratory: Yes: CTA Bilaterally (TRACHCOLLAR), Other Gastrointestinal: Yes: Soft, Abdomen, Obese Genitourinary: Yes: Incontinence Musculoskeletal: Yes: Joint Swelling (LEFT LOWER EXTREMITY HEMARTHROSIS WITH BLISTER ECCHYMOSIS) Extremities: Yes: Other Integumentary: Yes: Bruising, Erythema, Pressure Ulcer Wound/Incision: Yes: Open to air, Dressing Dry and Intact, Reddened Neurological: Yes: Pre-Existing Deficit ...Motor Strength: LLE Psychiatric: Yes: Other Labs: CBC, BMP 05/18/19 05:50 05/18/19 05:50 INR, PTT INR 1.07 (0.83-1.09) 05/15/19 03:00 Problem List - Problems (1) Bilateral closed proximal tibial fracture Code(s): S82.101A - UNSP FRACTURE OF UPPER END OF RIGHT TIBIA, INIT FOR CLOS FX ; S82.102A - UNSP FRACTURE OF UPPER END OF LEFT TIBIA, INIT FOR CLOS FX (2) 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 Code(s): Z92.29 - PERSONAL HISTORY OF OTHER DRUG THERAPY (3) Acute and chronic respiratory failure with hypoxia Code(s): J96.21 - ACUTE AND CHRONIC RESPIRATORY FAILURE WITH HYPOXIA (4) Acute wheezy bronchitis Code(s): J20.9 - ACUTE BRONCHITIS, UNSPECIFIED (5) Afib Code(s): I48.91 - UNSPECIFIED ATRIAL FIBRILLATION (6) Bacteremia due to methicillin resistant Staphylococcus aureus Code(s): R78.81 - BACTEREMIA (7) Bipolar 1 disorder Code(s): F31.9 - BIPOLAR DISORDER, UNSPECIFIED (8) Diabetes Code(s): E11.9 - TYPE 2 DIABETES MELLITUS WITHOUT COMPLICATIONS (9) Anxiety Code(s): F41.9 - ANXIETY DISORDER, UNSPECIFIED (10) Hemarthrosis Assessment/Plan: LEFT LOWER EXTREMITY Code(s): M25.00 - HEMARTHROSIS, UNSPECIFIED JOINT Assessment/Plan STOPPING HEPARIN IV BECAUSE OF ACUTE DROP IN H/H SECONDARY HEMARTHROSIS MOST LIKELY. SENDING 2ND SAMPLE STOOL GUAC, 1ST ONE NEGATIVE. DISCUSSED WITH DR RYAN TO DRAIN JOINT BLEED. HE ALSO WILL CAST THE LEG. CONSULT FOR DR LIONEL MASON SX FOR IVC FILTER PAIN CONTROL IMMODIUM PRN ANXIETY ON XANAX/BUSPAR CONTINUE PAIN CONTROL DISCUSSED PLAN WITH PATIENT BEDSIDE HEME CONSULT DR ACEVEDO
[2019-05-18] MEDS: LOPERAMIDE HCL 2 MG CAPSULE PO PRN ×2 (09:46→21:37)
[2019-05-18] MEDS: FERROUS SO4 325 MG TABLET (FP) PO SCH ×2 (09:48→21:55)
[2019-05-18] MEDS: VENLAFAXINE HCL 75 MG E.R. CAPSULES (FP) PO SCH (09:48)
[2019-05-18] MEDS: busPIRone HCL 10 MG TABLET (FP) PO SCH ×2 (09:48→21:54)
[2019-05-18] MEDS: ROSUVASTATIN CA 10 MG TABLET (FP) PO SCH (09:48)
[2019-05-18] MEDS: TOPIRAMATE 100 MG TABLET PO SCH (09:48)
[2019-05-18] MEDS: RANITIDINE HCL 150 MG TABLET (FP) PO SCH (09:48)
[2019-05-18] MEDS: CHOLECALCIFEROL (VIT D3) 1,000 UNIT (25 MCG) TABLET PO SCH (09:48)
[2019-05-18] MEDS: NYSTATIN POWDER 100,000 UNITS/GM - 15 GM TOPICAL POWDER TP SCH (09:50)
[2019-05-18] MEDS: CLOTRIMAZOLE 1% CREAM 15 GM TUBE TP SCH ×2 (09:50→21:55)
[2019-05-18] MEDS: VITAMIN B COMP W-C 1 EA TABLET PO SCH (09:50)
[2019-05-18] MEDS ORDERED: BACITRACIN 15 GM TUBE TOPICAL OINTMENT TP SCH (10:00)
--- NOTE | 2019-05-18 12:02 | PN ---
Progress Note (short form) - Note Progress Note: Ortho Pt seen and examined s/p bilateral proximal tibia fxs Selected Entries 05/18/19 06:00 Temperature 98.2 F Pulse Rate 81 Respiratory 18 Rate Blood Pressure 118/66 decr swelling, + ttp, decr rom, nvi a/p Pt defers any surgical treatment well padded cast applied to b/l LE NWB decubtius checks for IVC filter as per vascular pain control d/w Dr. Miller
--- NOTE | 2019-05-18 13:27 | CONSULT ---
- Consultation REQUESTING PROVIDER: CONSULT REQUEST: We have been asked to surgically evaluate this patient for ( prophylactic ivc filter placement). PCP:Kaz Goel HISTORY OF PRESENT ILLNESS: 53 y/o F w/ PMHx HTN, HLD, Afib, COPD (O2 dependent ) s/p Trach (Dr Arnold, 08/2016), Asthma, GI Bleed, h/o Uterine Ca now admitted s/p fall with knee pain/inability to ambulate found to have b/l proximal tib/fib fxs. Pt declining sx also with h/h trending down. Currently in b/l casts. Vascular consulted for prophylactic IVC filter placement as pt is not a candidate for anticoagulation at this time. Denies any instrumentation in b/l groins this admission. Denies h/o dvt/pe. PMHx: Cardiovascular: Yes: AFIB (Paroxysmal), HTN, Hyperlipdemia Pulmonary: Yes: Asthma, COPD, O2 Dependent, Previously Intubated, Other (Trach) Gastrointestinal: Yes: GI Bleed Hepatobiliary: Yes: Other (Fatty Liver). No: Cirrhosis Renal/: Yes: Cancer (Uterine), Other ([place] in the past) Heme/Onc: Yes: Anemia Infectious Disease: Yes: C-Diff (june 2014), Other (Osteomyelitis of thoracic spine) Psych: Yes: Anxiety, Bipolar, Depression Musculoskeletal: Yes: Chronic low back pain, Other (multiple vertebral fractures ) Endocrine: Yes: Diabetes Mellitus, Hypothyroidism - Past Surgical History Past Surgical History: Yes: Appendectomy, Colectomy (By description, right colon resection with anastamosis noted on colonoscopy 2013), Hysterectomy (ADE/ BSO), Stent Home Medications Medication Instructions Recorded Albuterol Sulfate Inhaler - 2 puff IH Q4H PRN #0 inhaler 11/29/16 [Ventolin HFA Inhaler -] Acetaminophen [Tylenol .Regular 650 mg PO Q6H PRN #0 tablet 03/27/17 Strength -] Apixaban [Eliquis -] 5 mg PO BID tablet 04/29/17 Baclofen 10 mg PO TID 07/09/18 Rosuvastatin Calcium [Crestor] 10 mg PO DAILY 07/09/18 Montelukast Na [Singulair -] 10 mg PO HS 08/07/18 Topiramate [Topamax -] 100 mg PO DAILY #30 tablet 08/15/18 Alprazolam [Xanax] 0.25 mg PO Q8H PRN tablet MDD 3 10/23/18 Cholecalciferol (Vitamin D3) 1,000 unit PO DAILY tab 11/09/18 [Vitamin D3 -] Doxepin HCl [Sinequan -] 25 mg PO HS capsule 11/09/18 Ferrous Sulfate [Feosol] 325 mg PO BID ud 11/09/18 Nystatin Powder [Nystop Powder -] 1 applic TP DAILY applic 11/09/18 HYDROmorphone [Dilaudid -] 2 mg PO Q4H PRN 12/12/18 Insulin Sliding Scale [Novolog 0 units SQ TIDAC 12/12/18 Vial Sliding Scale -] Pramipexole Di-HCl [Mirapex] 0.5 mg PO TID 12/12/18 Ranitidine [Zantac -] 150 mg PO DAILY 12/12/18 Venlafaxine HCl ER [Effexor Xr -] 75 mg PO DAILY 12/12/18 Vitamin B Comp W-C [Nephro-Héctor -] 1 tablet PO DAILY 12/12/18 Albuterol 2.5/Ipratropium 0.5 1 amp NEB RTID amp 12/23/18 [Duoneb -] Lactobacillus Acidophilus [Bacid -] 1 tab PO DAILY tab 12/23/18 Sodium Bicarbonate - 650 mg PO TID #30 tablet MDD 3 12/23/18 Acetaminophen [Tylenol .Regular 650 mg PO Q6HPO PRN tablet 12/31/18 Strength -] Albuterol 2.5/Ipratropium 0.5 1 amp NEB RTID amp 12/31/18 [Duoneb -] Alprazolam [Xanax] 0.25 mg PO Q8H PRN tablet MDD 3 12/31/18 Apixaban [Eliquis -] 5 mg PO BID tablet 12/31/18 Buspirone HCl [Buspar -] 10 mg PO BID tablet 12/31/18 Clotrimazole [Lotrimin -] 1 applic TP BID tube 12/31/18 Diphenhydramine HCl [Benadryl 25 mg PO Q6H PRN capsule 12/31/18 Capsule -] Ferrous Sulfate [Feosol] 325 mg PO BIDWM ud 12/31/18 HYDROmorphone [Dilaudid -] 2 mg PO Q6H PRN tablet MDD 4 12/31/18 Insulin Sliding Scale [Novolog 1 vial SQ ACHS units 12/31/18 Vial Sliding Scale -] Levothyroxine [Synthroid -] 75 mcg PO DAILY@0600 tablet 12/31/18 Loperamide HCl [Imodium -] 2 mg PO Q8H PRN capsule 12/31/18 Nystatin Powder [Nystop Powder -] 1 applic TP DAILY applic 12/31/18 Pramipexole Dihydrochloride 0.25 mg PO TID tablet 12/31/18 [Mirapex -] Venlafaxine HCl ER [Effexor Xr -] 75 mg PO DAILY@0600 cap.er.24h 12/31/18 Allergies Allergy/AdvReac Type Severity Reaction Status Date / Time oxycodone [Oxycodone] Allergy Severe Nausea Verified 12/27/18 11:33 oxycodone HCl [From Percocet] Allergy Severe Nausea Verified 12/27/18 11:33 aspirin Allergy Mild Verified 12/27/18 11:33 blueberry [Blueberry] Allergy Mild Swelling Verified 12/27/18 11:33 fentanyl Allergy Mild Vomiting Verified 12/27/18 11:33 ibuprofen Allergy Swelling Verified 12/27/18 11:33 aspartame AdvReac Mild Itching Verified 12/27/18 11:33 REVIEW OF SYSTEMS: CONSTITUTIONAL: Absent: fever, chills CARDIOVASCULAR: Absent: chest pain RESPIRATORY: Absent: cough GASTROINTESTINAL: +abdominal pain, + diarrhea PHYSICAL EXAM: GENERAL: Awake, alert, and fully oriented, in no acute distress. HEAD: Normal with no signs of trauma. LUNGS: Trach in place and functioning Groin: b/l groins without evidence of recent line placement, etc Vital Signs Temperature 98.2 F 05/18/19 06:00 Pulse Rate 113 H 05/18/19 06:41 Respiratory Rate 18 05/18/19 08:22 Blood Pressure 118/66 05/18/19 06:00 O2 Sat by Pulse Oximetry (%) 97 05/18/19 08:22 Lab Results WBC 8.0 K/mm3 (4.0-10.0) 05/18/19 05:50 RBC 2.48 M/mm3 (3.60-5.2) L 05/18/19 05:50 Hgb 7.7 GM/dL (10.7-15.3) L 05/18/19 05:50 Hct 23.3 % (32.4-45.2) L 05/18/19 05:50 MCV 94.1 fl (80-96) 05/18/19 05:50 MCHC 33.2 g/dl (32.0-36.0) 05/18/19 05:50 RDW 15.1 % (11.6-15.6) 05/18/19 05:50 Plt Count 185 K/MM3 (134-434) 05/18/19 05:50 Sodium 139 mmol/L (136-145) 05/18/19 05:50 Potassium 3.7 mmol/L (3.5-5.1) 05/18/19 05:50 Chloride 106 mmol/L (98-107) 05/18/19 05:50 Carbon Dioxide 26 mmol/L (21-32) 05/18/19 05:50 Anion Gap 7 MMOL/L (8-16) L 05/18/19 05:50 BUN 9.9 mg/dL (7-18) 05/18/19 05:50 Creatinine 0.9 mg/dL (0.55-1.3) 05/18/19 05:50 Random Glucose 111 mg/dL (74-106) H 05/18/19 05:50 Calcium 7.8 mg/dL (8.5-10.1) L 05/18/19 05:50 Blood Type A POSITIVE 05/18/19 11:09 Antibody Screen Negative 05/18/19 11:09 INR 1.07 (0.83-1.09) 05/15/19 03:00 A/P: 53 y/o F w/ PMHx HTN, HLD, Afib, COPD (O2 dependent) s/p Trach (Dr Arnold , 08/2016), Asthma, GI Bleed, h/o Uterine Ca now admitted s/p fall with knee pain/inability to ambulate found to have b/l proximal tib/fib fxs. Pt declining sx also with h/h trending down. Currently in b/l casts. Vascular consulted for prophylactic IVC filter placement as pt is not a candidate for anticoagulation at this time. Discussed need for prophylactic IVC filter placement with patient due to b/l casts which will likely be in place for the next few weeks as well as inability to anticoagulate due to current anemia. Pt verbalized understanding and is agreeable to ivc filter placement. -Keep npo -Consent per attending -To receive pRBCs prior to OR -Case scheduled for 4pm on 05/18/19 attending aware
--- NOTE | 2019-05-18 14:20 | PN ---
Progress Note (short form) - Note Progress Note: PULMONARY Denies shortness of breath, cough or wheezing. c/o frequent diarrhea. Vital Signs Period Temp Pulse Resp BP Sys/Dan Pulse Ox Last 24 Hr 98.2 F-98.8 F 81-124 18-20 108-118/66-69 97-97 Gen: NAD at rest Heart: RRR Lung: scattered rhonchi Abd: soft, nontender Ext: + edema CBC, BMP 05/18/19 05:50 05/18/19 05:50 Active Medications Albuterol Sulfate (Ventolin Hfa Inhaler -) 2 puff IH Q4H PRN PRN Reason: SHORT OF BREATH/WHEEZING Albuterol/Ipratropium (Duoneb -) 1 amp NEB RTID [facility] Last Admin: 05/18/19 13:49 Dose: 1 amp Alprazolam (Xanax -) 0.25 mg PO Q8H PRN PRN Reason: ANXIETY Last Admin: 05/17/19 23:16 Dose: 0.25 mg Bacitracin (Bacitracin -) 1 applic TP DAILY [facility] Buspirone HCl (Buspar -) 10 mg PO BID [facility] Last Admin: 05/18/19 09:48 Dose: 10 mg Cholecalciferol (Vitamin D3 -) 1,000 unit PO DAILY [facility] Last Admin: 05/18/19 09:48 Dose: 1,000 unit Clotrimazole (Lotrimin 1% Cream -) 1 applic TP BID [facility] Last Admin: 05/18/19 09:50 Dose: 1 applic Docusate Sodium (Colace -) 100 mg PO TID [facility] Last Admin: 05/18/19 05:35 Dose: Not Given Ferrous Sulfate (Feosol -) 325 mg PO BID [facility] Last Admin: 05/18/19 09:48 Dose: 325 mg Hydromorphone HCl (Dilaudid Vial -) 2 mg IVPB Q6H PRN PRN Reason: PAIN LEVEL 7 - 10 Last Admin: 05/18/19 08:09 Dose: 2 mg Insulin Aspart (Novolog Vial Sliding Scale -) 1 vial SQ ACHS [facility]; Protocol Last Admin: 05/18/19 12:30 Dose: Not Given Levothyroxine Sodium (Synthroid -) 75 mcg PO DAILY@0600 [facility] Last Admin: 05/18/19 05:35 Dose: 75 mcg Loperamide HCl (Imodium -) 2 mg PO Q8H PRN PRN Reason: DIARRHEA Last Admin: 05/18/19 09:46 Dose: 2 mg Montelukast Sodium (Singulair -) 10 mg PO HS [facility] Last Admin: 05/17/19 22:36 Dose: 10 mg Multivit/Ca Carb/B Cmplx/FA/Prenat (Nephro-Héctor -) 1 tablet PO DAILY [facility] Last Admin: 05/18/19 09:50 Dose: 1 tablet Nystatin (Nystop Powder -) 1 applic TP DAILY [facility] Last Admin: 05/18/19 09:50 Dose: 1 applic Olanzapine (Zyprexa -) 2.5 mg PO HS [facility] Ranitidine HCl (Zantac -) 150 mg PO DAILY [facility] Last Admin: 05/18/19 09:48 Dose: 150 mg Rosuvastatin Calcium (Crestor -) 10 mg PO DAILY [facility] Last Admin: 05/18/19 09:48 Dose: 10 mg Sodium Bicarbonate (Sodium Bicarbonate -) 650 mg PO TID [facility] Last Admin: 05/18/19 05:35 Dose: 650 mg Topiramate (Topamax -) 100 mg PO DAILY [facility] Last Admin: 05/18/19 09:48 Dose: 100 mg Venlafaxine HCl (Effexor Xr -) 75 mg PO DAILY [facility] Last Admin: 05/18/19 09:48 Dose: 75 mg Zolpidem Tartrate (Ambien -) 5 mg PO HS PRN PRN Reason: INSOMNIA Last Admin: 05/17/19 22:36 Dose: 5 mg A/P s/p Fall Bilateral Proximal Tibial/Fibula Fractures COPD Chronic Hypoxic Respiratory Failure Atrial Fibrillation HTN Hyperlipidemia h/o Uterine Ca Anemia - pain control - inhaled bronchodilators - O2 to keep Spo2 >90% - antidiarrheal agents - DVT prophylaxis HTN, HLD, Afib, COPD (O2 dependent) s/p Trach (Dr Arnold, 08/2016), Asthma, GI Bleed, h/o Uterine Ca now admitted s/p fall with knee pain/inability to ambulate found to have b/l proximal tib/fib fxs. Pt declining sx also with h/h trending down. Currently in b/l casts. Vascular consulted for prophylactic IVC filter placement as pt is not a candidate for anticoagulation at this time. Denies any instrumentation in b/l groins this admission. Denies h/o dvt/pe.
[2019-05-18] MEDS ORDERED: BISMUTH SUBSALICYLATE 524 MG/30 ML UD PO PRN (14:21)
[2019-05-18] MEDS ORDERED: HYDROmorphone HCL 2 MG TABLET PO ONE (14:28)
--- NOTE | 2019-05-18 16:02 | CONSULT ---
Consultation: REQUESTING PROVIDER: CONSULT REQUEST: We have been asked to medically evaluate this patient for anemia. HISTORY OF PRESENT ILLNESS: This is a 53 year old woman with a PMHx of HTN, HLD, A.fib, COPD (O2 dependent) , s/p Trach, asthma, GI Bleed, Uterine Ca, admitted s/p fall with knee pain and unable to ambulate. She was found to have bilateral tibia/fibula fractures, anemia. Hematology/Oncology was consulted for anemia. Today the patient is complaining of diarrhea that starred yesterday and bilateral leg pain. The patient was seen by Orthopedic surgeon but refused to be operated. Today she is going for IVC filter. She denies chest pain, SOB, fever, chills, nausea, vomiting. PSH: appendectomy, colectomy, hysterectomy, stent SH: former smoker, quit in , no alcohol, no drugs FH: Mother diabetes, father: leukemia, siblings healthy, no children REVIEW OF SYSTEMS: CONSTITUTIONAL: Absent: fever, chills, diaphoresis, generalized weakness, malaise, loss of appetite, weight change HEENT: Absent: rhinorrhea, nasal congestion, throat pain CARDIOVASCULAR: Absent: chest pain, syncope, palpitations, irregular heart rate, lightheadedness , peripheral edema RESPIRATORY: Absent: cough, shortness of breath, GASTROINTESTINAL: diarrhea, Absent: abdominal pain, abdominal distension, nausea, vomiting, constipation GENITOURINARY: Absent: dysuria, frequency, urgency, hesitancy, hematuria MUSCULOSKELETAL: Absent: myalgia, arthralgia, joint swelling SKIN: Absent: rash, itching, pallor HEMATOLOGIC/IMMUNOLOGIC: Absent: easy bleeding, easy bruising, lymphadenopathy, frequent infections ENDOCRINE: Absent: unexplained weight gain, unexplained weight loss, NEUROLOGIC: Absent: headache, seizure PSYCHIATRIC: Absent: anxiety, depression, PHYSICAL EXAMINATION Vital Signs - 24 hr 05/17/19 05/17/19 05/17/19 16:40 20:52 21:00 Temperature 98.8 F 98.5 F Pulse Rate 124 H 118 H Respiratory 20 20 20 Rate Blood Pressure 114/69 108/68 O2 Sat by Pulse Oximetry (%) 05/18/19 05/18/19 05/18/19 06:00 06:41 08:22 Temperature 98.2 F Pulse Rate 81 113 H Respiratory 18 18 Rate Blood Pressure 118/66 O2 Sat by Pulse 97 97 Oximetry (%) GENERAL: Awake, alert, and fully oriented, in no acute distress, lying in bed. HEAD: Normal with no signs of trauma. EYES: Pupils equal, round and reactive to light, extraocular movements intact, sclera anicteric. EARS, NOSE, THROAT: Oropharynx clear without exudates. Moist mucous membranes, + tracheostomy. NECK: Supple without lymphadenopathy. LUNGS: Breath sounds equal, clear to auscultation bilaterally. No wheezes, and no crackles. HEART: Regular rate and rhythm, normal S1 and S2 without murmur, rub or gallop. ABDOMEN: Soft, nontender, not distended, normoactive bowel sounds, no guarding, no rebound, no masses. UPPER EXTREMITIES: No peripheral edema. LOWER EXTREMITIES: casts in lower extremities from toe to upper thigh NEUROLOGICAL: No focal. Normal speech. PSYCHIATRIC: Cooperative. Good eye contact. SKIN: Warm, dry, no rashes. BREAST: no masses, no discharge from nipples, inverted nipple on right Laboratory Results - last 24 hr 05/17/19 05/17/19 05/17/19 15:58 17:07 19:30 WBC 8.9 RBC 2.40 L Hgb 7.4 L Hct 22.5 L MCV 93.8 MCH 30.8 MCHC 32.8 RDW 15.0 Plt Count 189 MPV 9.0 PTT (Actin FS) Sodium Potassium Chloride Carbon Dioxide Anion Gap BUN Creatinine Est GFR (CKD-EPI)AfAm Est GFR (CKD-EPI)NonAf POC Glucometer 175 Random Glucose Calcium Stool Occult Blood Negative Blood Type Antibody Screen Crossmatch 05/17/19 05/17/19 05/18/19 19:30 22:41 05:34 WBC RBC Hgb Hct MCV MCH MCHC RDW Plt Count MPV PTT (Actin FS) 80.7 H Sodium Potassium Chloride Carbon Dioxide Anion Gap BUN Creatinine Est GFR (CKD-EPI)AfAm Est GFR (CKD-EPI)NonAf POC Glucometer 147 114 Random Glucose Calcium Stool Occult Blood Blood Type Antibody Screen Crossmatch 05/18/19 05/18/19 05/18/19 05:50 05:50 05:50 WBC 8.0 RBC 2.48 L Hgb 7.7 L Hct 23.3 L MCV 94.1 MCH 31.2 MCHC 33.2 RDW 15.1 Plt Count 185 MPV 8.8 PTT (Actin FS) 47.9 H Sodium 139 Potassium 3.7 Chloride 106 Carbon Dioxide 26 Anion Gap 7 L BUN 9.9 Creatinine 0.9 Est GFR (CKD-EPI)AfAm 85.80 Est GFR (CKD-EPI)NonAf 74.03 POC Glucometer Random Glucose 111 H Calcium 7.8 L Stool Occult Blood Blood Type Antibody Screen Crossmatch 05/18/19 05/18/19 11:09 12:29 WBC RBC Hgb Hct MCV MCH MCHC RDW Plt Count MPV PTT (Actin FS) Sodium Potassium Chloride Carbon Dioxide Anion Gap BUN Creatinine Est GFR (CKD-EPI)AfAm Est GFR (CKD-EPI)NonAf POC Glucometer 121 Random Glucose Calcium Stool Occult Blood Blood Type A POSITIVE Antibody Screen Negative Crossmatch See Detail Active Medications Generic Name Dose Route Start Last Admin Trade Name Freq PRN Reason Stop Dose Admin Albuterol Sulfate 2 puff 05/15/19 07:39 Ventolin Hfa Inhaler - IH Q4H PRN SHORT OF BREATH/WHEEZING Albuterol/Ipratropium 1 amp 05/15/19 08:00 05/18/19 13:49 Duoneb - NEB 1 amp RTID EMMY Administration Alprazolam 0.25 mg 05/15/19 07:39 05/17/19 23:16 Xanax - PO 0.25 mg Q8H PRN Administration ANXIETY Bacitracin 1 applic 05/18/19 10:00 05/18/19 15:38 Bacitracin - TP 1 applic DAILY EMMY Administration Bismuth Subsalicylate 524 mg 05/18/19 14:21 05/18/19 15:40 Pepto-Bismol - PO 524 mg BID PRN Administration DIARRHEA Buspirone HCl 10 mg 05/15/19 10:00 05/18/19 09:48 Buspar - PO 10 mg BID EMMY Administration Cholecalciferol 1,000 unit 05/15/19 10:00 05/18/19 09:48 Vitamin D3 - PO 1,000 unit DAILY EMMY Administration Clotrimazole 1 applic 05/15/19 10:00 05/18/19 09:50 Lotrimin 1% Cream - TP 1 applic BID EMMY Administration Docusate Sodium 100 mg 05/15/19 06:00 05/18/19 15:05 Colace - PO Not Given TID EMMY Ferrous Sulfate 325 mg 05/15/19 10:00 05/18/19 09:48 Feosol - PO 325 mg BID EMMY Administration Hydromorphone HCl 2 mg 05/17/19 08:00 05/18/19 08:09 Dilaudid Vial - IVPB 2 mg Q6H PRN Administration PAIN LEVEL 7 - 10 Insulin Aspart 1 vial 05/15/19 11:00 05/18/19 12:30 Novolog Vial Sliding Scale - SQ Not Given ACHS [facility] Protocol Levothyroxine Sodium 75 mcg 05/15/19 07:45 05/18/19 05:35 Synthroid - PO 75 mcg DAILY@0600 EMMY Administration Loperamide HCl 2 mg 05/15/19 07:39 05/18/19 09:46 Imodium - PO 2 mg Q8H PRN Administration DIARRHEA Montelukast Sodium 10 mg 05/15/19 22:00 05/17/19 22:36 Singulair - PO 10 mg HS EMMY Administration Multivit/Ca Carb/B Cmplx/FA/Prenat 1 tablet 05/15/19 10:00 05/18/19 09:50 Nephro-Héctor - PO 1 tablet DAILY EMMY Administration Nystatin 1 applic 05/15/19 10:00 05/18/19 09:50 Nystop Powder - TP 1 applic DAILY EMMY Administration Olanzapine 2.5 mg 05/18/19 22:00 Zyprexa - PO HS EMMY Ranitidine HCl 150 mg 05/15/19 10:00 05/18/19 09:48 Zantac - PO 150 mg DAILY EMMY Administration Rosuvastatin Calcium 10 mg 05/15/19 10:00 05/18/19 09:48 Crestor - PO 10 mg DAILY EMMY Administration Sodium Bicarbonate 650 mg 05/15/19 07:45 05/18/19 15:05 Sodium Bicarbonate - PO Not Given TID EMMY Topiramate 100 mg 05/15/19 10:00 05/18/19 09:48 Topamax - PO 100 mg DAILY EMMY Administration Venlafaxine HCl 75 mg 05/15/19 10:00 05/18/19 09:48 Effexor Xr - PO 75 mg DAILY EMMY Administration Zolpidem Tartrate 5 mg 05/17/19 22:00 05/17/19 22:36 Ambien - PO 5 mg HS PRN Administration INSOMNIA ASSESSMENT/PLAN: This is a 53 year old woman with a PMHx of HTN, HLD, A.fib, COPD (O2 dependent) , s/p Trach, asthma, GI Bleed, Uterine Ca, admitted s/p fall with knee pain and unable to ambulate. She was found to have bilateral tibia/fibula fractures, anemia. Hematology/Oncology was consulted for anemia. anemia HTN, HLD, A.fib, COPD (O2 dependent), s/p Trach, asthma, GI Bleed, Uterine Ca psoriasis Plan: Anemia likely due to blood loss, possible hemarthrosis due to recent trauma low dose Lovenox should be considered. FOBT neg. Will f/u next FOBT, iron studies. Scheduled to OR today (IVC filter since the patient can't take AC due to blood loss) and plan to transfuse PRBC so iron studies may not be reliable. Dispo: We will continue to follow the patient. Thank you for this consultative opportunity. Problem List - Problems (1) Bilateral closed proximal tibial fracture Code(s): S82.101A - UNSP FRACTURE OF UPPER END OF RIGHT TIBIA, INIT FOR CLOS FX ; S82.102A - UNSP FRACTURE OF UPPER END OF LEFT TIBIA, INIT FOR CLOS FX (2) Hemarthrosis Code(s): M25.00 - HEMARTHROSIS, UNSPECIFIED JOINT (3) Anemia Code(s): D64.9 - ANEMIA, UNSPECIFIED (4) Diabetes Code(s): E11.9 - TYPE 2 DIABETES MELLITUS WITHOUT COMPLICATIONS Visit type - Emergency Visit Emergency Visit: Yes ED Registration Date: 05/15/19 Care time: The patient presented to the Emergency Department on the above date and was hospitalized for further evaluation of their emergent condition. - New Patient This patient is new to me today: Yes Date on this admission: 05/18/19 - Critical Care Critical Care patient: No
[2019-05-18] MEDS ORDERED: HEPARIN NA (PORCINE) 5,000 UNITS/ML 1ML VIAL ONE (16:27)
[2019-05-18] MEDS ORDERED: LIDOCAINE HCL 1%, 10 MG/ML (20ML VIAL) ONE (16:27)
[2019-05-18] MEDS ORDERED: MIDAZOLAM HCL 2 MG/2 ML SINGLE DOSE VIAL ONE (17:17)
--- NOTE | 2019-05-18 17:34 | OP ---
Operative Note - Note: Operative Date: 05/18/19 Pre-Operative Diagnosis: bilateral lower ext fractures Operation: Insertion of IVC filter with venogram Post-Operative Diagnosis: Same as Pre-op Surgeon: Ze Chaudhary Anesthesia: Fractional Estimated Blood Loss (mls): 10 Operative Report Dictated: Yes
[2019-05-18] MEDS ORDERED: MORPHINE SULFATE 2 MG/ML VIAL IVPUSH PRN (17:46)
[2019-05-18] MEDS ORDERED: ACETAMINOPHEN 1000 MG/100 ML VIAL (NON FORMULARY) IVPB ONE (17:47)
[2019-05-18] MEDS ORDERED: ACETAMINOPHEN INJECTION 100 ML IVPB ONE (17:54)
[2019-05-18] MEDS ORDERED: ALBUTEROL SO4 8 GM HFA INHALER IH PRN (18:18)
[2019-05-18] MEDS ORDERED: morphine SULFATE 4 MG/ML VIAL ONE (18:21)
--- NOTE | 2019-05-18 20:16 | PN ---
Teaching Attending Note Name of Resident: Lona Bush ATTENDING PHYSICIAN STATEMENT I saw and evaluated the patient. I reviewed the resident's note and discussed the case with the resident. I agree with the resident's findings and plan as documented. SUBJECTIVE: Patient seen and examined Sustained fall with bilateral tibia and fibula fractures Fall in Hct likely secondary to trauma Underwent IVC filter Last Vital Signs Temp Pulse Resp BP Pulse Ox 100.4 F H 107 H 16 109/63 100 05/18/19 18:45 05/18/19 18:45 05/18/19 18:45 05/18/19 18:45 05/18/19 18:45 HEENT: KRYSTEN, EOM Intact Oropharynx: No thrush, No mucositis, edentulous uppers Neck: trach Breasts: Without masses Cor: RSR, No murmurs, No gallops Lungs: scattered rhonchi Abd: Soft, Normal bowel sounds, No organomegaly Ext-cast LE's CBC, BMP 05/18/19 05:50 05/18/19 05:50 Current Medications Generic Name Dose Route Start Last Admin Trade Name Freq PRN Reason Stop Dose Admin Albuterol Sulfate 2 puff 05/18/19 18:18 Ventolin Hfa Inhaler - IH Q4H PRN SHORT OF BREATH/WHEEZING Albuterol/Ipratropium 1 amp 05/18/19 20:00 Duoneb - NEB RTID EMMY Alprazolam 0.25 mg 05/18/19 18:18 Xanax - PO Q8H PRN ANXIETY Bacitracin 1 applic 05/19/19 10:00 Bacitracin - TP DAILY EMMY Bismuth Subsalicylate 524 mg 05/18/19 18:18 Pepto-Bismol - PO BID PRN DIARRHEA Buspirone HCl 10 mg 05/18/19 22:00 Buspar - PO BID EMMY Cholecalciferol 1,000 unit 05/19/19 10:00 Vitamin D3 - PO DAILY EMMY Clotrimazole 1 applic 05/18/19 22:00 Lotrimin 1% Cream - TP BID EMMY Docusate Sodium 100 mg 05/18/19 22:00 Colace - PO TID EMMY Ferrous Sulfate 325 mg 05/18/19 22:00 Feosol - PO BID EMMY Hydromorphone HCl 2 mg 05/18/19 18:18 Dilaudid Vial - IVPB Q6H PRN PAIN LEVEL 7 - 10 Insulin Aspart 1 vial 05/18/19 22:00 Novolog Vial Sliding Scale - SQ ACHS EMMY Protocol Levothyroxine Sodium 75 mcg 05/19/19 06:00 Synthroid - PO DAILY@0600 EMMY Loperamide HCl 2 mg 05/18/19 18:18 Imodium - PO Q8H PRN DIARRHEA Montelukast Sodium 10 mg 05/18/19 22:00 Singulair - PO HS [facility] Morphine Sulfate 2 mg 05/18/19 17:46 05/18/19 18:15 Morphine Sulfate IVPUSH 2 mg [id number] PRN Administration PAIN-PACU ORDER X 4 DOSES ONLY Multivit/Ca Carb/B Cmplx/FA/Prenat 1 tablet 05/19/19 10:00 Nephro-Héctor - PO DAILY [facility] Nystatin 1 applic 05/19/19 10:00 Nystop Powder - TP DAILY [facility] Olanzapine 2.5 mg 05/18/19 22:00 Zyprexa - PO HS [facility] Ranitidine HCl 150 mg 05/19/19 10:00 Zantac - PO DAILY [facility] Rosuvastatin Calcium 10 mg 05/19/19 10:00 Crestor - PO DAILY [facility] Sodium Bicarbonate 650 mg 05/18/19 22:00 Sodium Bicarbonate - PO TID [facility] Topiramate 100 mg 05/19/19 10:00 Topamax - PO DAILY [facility] Venlafaxine HCl 75 mg 05/19/19 10:00 Effexor Xr - PO DAILY [facility] Zolpidem Tartrate 5 mg 05/18/19 18:18 Ambien - PO HS PRN INSOMNIA Impression: Anemia secondary to trauma with bilateral tibia , fibula fractures S/P IVC filter O2 and trach dependent IVC filter placement ? Anemia - would transfuse and can give venofer OBJECTIVE: ASSESSMENT AND PLAN:
[2019-05-18] MEDS: ALPRAZolam 0.25 MG TABLET PO PRN (20:17)
[2019-05-18] MEDS: MONTELUKAST NA 10 MG TABLET PO SCH (21:37)
[2019-05-18] MEDS: ZOLPIDEM TARTRATE 5 MG TABLET PO PRN (21:37)
[2019-05-18] MEDS: OLANZapine 2.5 MG TABLET PO SCH (21:37)
[2019-05-18] MEDS ORDERED: OLANZapine 2.5 MG TABLET PO SCH (22:00)
[2019-05-19] MEDS: HYDROmorphone HCl 2 MG/ML VIAL IVPB PRN ×2 (03:11→09:46)
[2019-05-19] MEDS ORDERED: ACETAMINOPHEN 325 MG TABLET (FP) PO ONE (03:38)
[2019-05-19] MEDS: SODIUM BICARBONATE 650 MG TABLET PO SCH ×3 (05:42→21:28)
[2019-05-19] MEDS: DOCUSATE SODIUM 100 MG CAPSULE (FP) PO SCH ×3 (05:42→21:29)
[2019-05-19] MEDS: LEVOTHYROXINE NA 75 MCG TABLET (FP) PO SCH (05:42)
[2019-05-19 07:28] LABS: HEMATOCRIT 26.9 % (32.4-45.2); MCH 30.8 pg (25.7-33.7); MCHC 33.4 g/dl (32.0-36.0); MEAN CELL VOLUME 92.4 fl (80-96); MEAN PLT VOLUME 8.8 fl (7.5-11.1); PLATELET COUNT 202 K/MM3 (134-434); RBC 2.91 M/mm3 (3.60-5.2); RDW 15.2 % (11.6-15.6); WHITE BLOOD COUNT 7.4 K/mm3 (4.0-10.0)
[2019-05-19] MEDS: ALBUTEROL SO4 2.5/IPRATROPIUM 0.5 INH SOL 3 ML VIAL.NEB. NEB SCH ×3 (07:34→20:19)
[2019-05-19] MEDS: INSULIN SLIDING SCALE (NOVOLOG) 1 VIAL SQ SCH ×4 (07:34→23:05)
[2019-05-19 07:39] LABS: BLOOD UREA NITROGEN 10.7 mg/dL (7-18); CALCIUM 8.2 mg/dL (8.5-10.1); CREATININE 0.9 mg/dL (0.55-1.3); POTASSIUM 3.1 mmol/L (3.5-5.1)
[2019-05-19] MEDS: BACITRACIN 15 GM TUBE TOPICAL OINTMENT TP SCH (09:47)
[2019-05-19] MEDS: busPIRone HCL 10 MG TABLET (FP) PO SCH ×2 (09:48→21:30)
[2019-05-19] MEDS: VITAMIN B COMP W-C 1 EA TABLET PO SCH (09:48)
[2019-05-19] MEDS: RANITIDINE HCL 150 MG TABLET (FP) PO SCH (09:48)
[2019-05-19] MEDS: ROSUVASTATIN CA 10 MG TABLET (FP) PO SCH (09:49)
[2019-05-19] MEDS: CLOTRIMAZOLE 1% CREAM 15 GM TUBE TP SCH ×2 (09:49→21:32)
[2019-05-19] MEDS: FERROUS SO4 325 MG TABLET (FP) PO SCH ×2 (09:49→21:29)
[2019-05-19] MEDS: VENLAFAXINE HCL 75 MG E.R. CAPSULES (FP) PO SCH (09:49)
[2019-05-19] MEDS: CHOLECALCIFEROL (VIT D3) 1,000 UNIT (25 MCG) TABLET PO SCH (09:49)
[2019-05-19] MEDS: TOPIRAMATE 100 MG TABLET PO SCH (09:49)
[2019-05-19] MEDS: NYSTATIN POWDER 100,000 UNITS/GM - 15 GM TOPICAL POWDER TP SCH (09:50)
[2019-05-19] MEDS ORDERED: POTASSIUM CHLORIDE TABS 10 MEQ TABLET.ER (FP) PO ONE (10:07)
--- NOTE | 2019-05-19 10:12 | PN ---
Progress Note, Physician Chief Complaint: AWAKE ALERT S/P IVC FILTER PLACEMENT S/P CASTING B/L TIB/FIB FX - Current Medication List Current Medications: Active Medications Albuterol Sulfate (Ventolin Hfa Inhaler -) 2 puff IH Q4H PRN PRN Reason: SHORT OF BREATH/WHEEZING Albuterol/Ipratropium (Duoneb -) 1 amp NEB RTID [facility] Last Admin: 05/19/19 07:34 Dose: 1 amp Alprazolam (Xanax -) 0.25 mg PO Q8H PRN PRN Reason: ANXIETY Last Admin: 05/18/19 20:17 Dose: 0.25 mg Bacitracin (Bacitracin -) 1 applic TP DAILY [facility] Last Admin: 05/19/19 09:47 Dose: 1 applic Bismuth Subsalicylate (Pepto-Bismol -) 524 mg PO BID PRN PRN Reason: DIARRHEA Buspirone HCl (Buspar -) 10 mg PO BID [facility] Last Admin: 05/19/19 09:48 Dose: 10 mg Cholecalciferol (Vitamin D3 -) 1,000 unit PO DAILY [facility] Last Admin: 05/19/19 09:49 Dose: 1,000 unit Clotrimazole (Lotrimin 1% Cream -) 1 applic TP BID [facility] Last Admin: 05/19/19 09:49 Dose: 1 applic Docusate Sodium (Colace -) 100 mg PO TID [facility] Last Admin: 05/19/19 05:42 Dose: Not Given Ferrous Sulfate (Feosol -) 325 mg PO BID [facility] Last Admin: 05/19/19 09:49 Dose: 325 mg Hydromorphone HCl (Dilaudid Vial -) 2 mg IVPB Q6H PRN PRN Reason: PAIN LEVEL 7 - 10 Last Admin: 05/19/19 09:46 Dose: 2 mg Insulin Aspart (Novolog Vial Sliding Scale -) 1 vial SQ ACHS [facility]; Protocol Last Admin: 05/19/19 07:34 Dose: Not Given Levothyroxine Sodium (Synthroid -) 75 mcg PO DAILY@0600 [facility] Last Admin: 05/19/19 05:42 Dose: 75 mcg Loperamide HCl (Imodium -) 2 mg PO Q8H PRN PRN Reason: DIARRHEA Last Admin: 05/18/19 21:37 Dose: 2 mg Montelukast Sodium (Singulair -) 10 mg PO HS [facility] Last Admin: 05/18/19 21:37 Dose: 10 mg Morphine Sulfate (Morphine Sulfate) 2 mg IVPUSH [id number] PRN PRN Reason: PAIN-PACU ORDER X 4 DOSES ONLY Last Admin: 05/18/19 18:15 Dose: 2 mg Multivit/Ca Carb/B Cmplx/FA/Prenat (Nephro-Héctor -) 1 tablet PO DAILY [facility] Last Admin: 05/19/19 09:48 Dose: 1 tablet Nystatin (Nystop Powder -) 1 applic TP DAILY [facility] Last Admin: 05/19/19 09:50 Dose: 1 applic Olanzapine (Zyprexa -) 2.5 mg PO HS [facility] Last Admin: 05/18/19 21:37 Dose: 2.5 mg Potassium Chloride (K-Dur -) 20 meq PO DAILY [facility] Potassium Chloride (K-Dur -) 10 meq PO ONCE ONE Stop: 05/19/19 10:08 Ranitidine HCl (Zantac -) 150 mg PO DAILY [facility] Last Admin: 05/19/19 09:48 Dose: 150 mg Rosuvastatin Calcium (Crestor -) 10 mg PO DAILY [facility] Last Admin: 05/19/19 09:49 Dose: 10 mg Sodium Bicarbonate (Sodium Bicarbonate -) 650 mg PO TID [facility] Last Admin: 05/19/19 05:42 Dose: 650 mg Topiramate (Topamax -) 100 mg PO DAILY [facility] Last Admin: 05/19/19 09:49 Dose: 100 mg Venlafaxine HCl (Effexor Xr -) 75 mg PO DAILY [facility] Last Admin: 05/19/19 09:49 Dose: 75 mg Zolpidem Tartrate (Ambien -) 5 mg PO HS PRN PRN Reason: INSOMNIA Last Admin: 05/18/19 21:37 Dose: 5 mg - Objective Vital Signs: Vital Signs Temperature 98.5 F 05/19/19 05:40 Pulse Rate 90 05/19/19 07:33 Respiratory Rate 18 05/19/19 05:40 Blood Pressure 103/61 05/19/19 05:40 O2 Sat by Pulse Oximetry (%) 100 05/19/19 07:33 Constitutional: Yes: Mild Distress Eyes: Yes: WNL HENT: Yes: WNL Neck: Yes: WNL Cardiovascular: Yes: Regular Rate and Rhythm Respiratory: Yes: Other (TRACH) Gastrointestinal: Yes: Soft, Abdomen, Obese Genitourinary: Yes: Incontinence Musculoskeletal: Yes: Muscle Pain, Muscle Weakness Extremities: Yes: Other (CASTING B/L LEGS) Integumentary: Yes: Bruising, Erythema Neurological: Yes: Pre-Existing Deficit ...Motor Strength: LLE, RLE Labs: CBC, BMP 05/19/19 05:35 05/19/19 05:35 INR, PTT INR 1.07 (0.83-1.09) 05/15/19 03:00 Problem List - Problems (1) Bilateral closed proximal tibial fracture Code(s): S82.101A - UNSP FRACTURE OF UPPER END OF RIGHT TIBIA, INIT FOR CLOS FX ; S82.102A - UNSP FRACTURE OF UPPER END OF LEFT TIBIA, INIT FOR CLOS FX (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 Code(s): Z92.29 - PERSONAL HISTORY OF OTHER DRUG THERAPY (3) Acute and chronic respiratory failure with hypoxia Code(s): J96.21 - ACUTE AND CHRONIC RESPIRATORY FAILURE WITH HYPOXIA (4) Acute wheezy bronchitis Code(s): J20.9 - ACUTE BRONCHITIS, UNSPECIFIED (5) Afib Code(s): I48.91 - UNSPECIFIED ATRIAL FIBRILLATION (6) Bacteremia due to methicillin resistant Staphylococcus aureus Code(s): R78.81 - BACTEREMIA (7) Bipolar 1 disorder Code(s): F31.9 - BIPOLAR DISORDER, UNSPECIFIED (8) Diabetes Code(s): E11.9 - TYPE 2 DIABETES MELLITUS WITHOUT COMPLICATIONS (9) Anxiety Code(s): F41.9 - ANXIETY DISORDER, UNSPECIFIED (10) Hemarthrosis Code(s): M25.00 - HEMARTHROSIS, UNSPECIFIED JOINT Assessment/Plan MONITOR LABS WILL CHECK CBC AND K+ TODAY AND DC PLANNING FOR THIS AFTERNOON PAIN CONTROL DC [place] IVC FILTER PLACED CAN START AC IN 1 WEEK
[2019-05-19] MEDS ORDERED: INSULIN (NOVOLOG) ASPART 100 UNITS/ML 10ML VIAL ONE ×2 (11:28→17:50)
[2019-05-19] MEDS: ALPRAZolam 0.25 MG TABLET PO PRN ×2 (11:38→21:28)
[2019-05-19] MEDS: POTASSIUM CHLORIDE TABS 20 MEQ TABLET.ER (FP) PO SCH (11:38)
[2019-05-19] MEDS: HYDROmorphone HCL 2 MG TABLET PO PRN ×2 (12:33→18:42)
--- NOTE | 2019-05-19 12:49 | PN ---
Progress Note, Physician Chief Complaint: s/p insertion IVC filter under mac anesthesia History of Present Illness: post op day one - Current Medication List Current Medications: Active Medications Albuterol Sulfate (Ventolin Hfa Inhaler -) 2 puff IH Q4H PRN PRN Reason: SHORT OF BREATH/WHEEZING Albuterol/Ipratropium (Duoneb -) 1 amp NEB RTID [facility] Last Admin: 05/19/19 07:34 Dose: 1 amp Alprazolam (Xanax -) 0.25 mg PO Q8H PRN PRN Reason: ANXIETY Last Admin: 05/19/19 11:38 Dose: 0.25 mg Bacitracin (Bacitracin -) 1 applic TP DAILY [facility] Last Admin: 05/19/19 09:47 Dose: 1 applic Bismuth Subsalicylate (Pepto-Bismol -) 524 mg PO BID PRN PRN Reason: DIARRHEA Buspirone HCl (Buspar -) 10 mg PO BID [facility] Last Admin: 05/19/19 09:48 Dose: 10 mg Cholecalciferol (Vitamin D3 -) 1,000 unit PO DAILY [facility] Last Admin: 05/19/19 09:49 Dose: 1,000 unit Clotrimazole (Lotrimin 1% Cream -) 1 applic TP BID [facility] Last Admin: 05/19/19 09:49 Dose: 1 applic Docusate Sodium (Colace -) 100 mg PO TID [facility] Last Admin: 05/19/19 05:42 Dose: Not Given Ferrous Sulfate (Feosol -) 325 mg PO BID [facility] Last Admin: 05/19/19 09:49 Dose: 325 mg Hydromorphone HCl (Dilaudid -) 2 mg PO Q6H PRN PRN Reason: PAIN LEVEL 6-10 Last Admin: 05/19/19 12:33 Dose: 2 mg Insulin Aspart (Novolog Vial Sliding Scale -) 1 vial SQ ACHS [facility]; Protocol Last Admin: 05/19/19 11:26 Dose: Not Given Levothyroxine Sodium (Synthroid -) 75 mcg PO DAILY@0600 [facility] Last Admin: 05/19/19 05:42 Dose: 75 mcg Loperamide HCl (Imodium -) 2 mg PO Q8H PRN PRN Reason: DIARRHEA Last Admin: 05/18/19 21:37 Dose: 2 mg Montelukast Sodium (Singulair -) 10 mg PO HS [facility] Last Admin: 05/18/19 21:37 Dose: 10 mg Morphine Sulfate (Morphine Sulfate) 2 mg IVPUSH [id number] PRN PRN Reason: PAIN-PACU ORDER X 4 DOSES ONLY Last Admin: 05/18/19 18:15 Dose: 2 mg Multivit/Ca Carb/B Cmplx/FA/Prenat (Nephro-Héctor -) 1 tablet PO DAILY [facility] Last Admin: 05/19/19 09:48 Dose: 1 tablet Nystatin (Nystop Powder -) 1 applic TP DAILY [facility] Last Admin: 05/19/19 09:50 Dose: 1 applic Olanzapine (Zyprexa -) 2.5 mg PO HS [facility] Last Admin: 05/18/19 21:37 Dose: 2.5 mg Potassium Chloride (K-Dur -) 20 meq PO DAILY [facility] Last Admin: 05/19/19 11:38 Dose: 20 meq Ranitidine HCl (Zantac -) 150 mg PO DAILY [facility] Last Admin: 05/19/19 09:48 Dose: 150 mg Rosuvastatin Calcium (Crestor -) 10 mg PO DAILY [facility] Last Admin: 05/19/19 09:49 Dose: 10 mg Sodium Bicarbonate (Sodium Bicarbonate -) 650 mg PO TID [facility] Last Admin: 05/19/19 05:42 Dose: 650 mg Topiramate (Topamax -) 100 mg PO DAILY [facility] Last Admin: 05/19/19 09:49 Dose: 100 mg Venlafaxine HCl (Effexor Xr -) 75 mg PO DAILY [facility] Last Admin: 05/19/19 09:49 Dose: 75 mg Zolpidem Tartrate (Ambien -) 5 mg PO HS PRN PRN Reason: INSOMNIA Last Admin: 05/18/19 21:37 Dose: 5 mg - Objective Vital Signs: Vital Signs Temperature 98.5 F 05/19/19 05:40 Pulse Rate 90 05/19/19 07:33 Respiratory Rate 18 05/19/19 05:40 Blood Pressure 103/61 05/19/19 05:40 O2 Sat by Pulse Oximetry (%) 100 05/19/19 07:33 Constitutional: Yes: Well Nourished Cardiovascular: Yes: WNL Respiratory: Yes: Regular (supplemental oxygen via trach), CTA Bilaterally Gastrointestinal: Yes: Distention Labs: CBC, BMP 05/19/19 05:35 05/19/19 05:35 INR, PTT INR 1.07 (0.83-1.09) 05/15/19 03:00 Assessment/Plan No adverse effects of anesthesia. Dept of anesthesiology will sign off care at this time
--- NOTE | 2019-05-19 13:21 | PN ---
Progress Note (short form) - Note Progress Note: PULMONARY s/p IVC filter. Denies shortness of breath, cough or wheezing. Vital Signs Period Temp Pulse Resp BP Sys/Dan Pulse Ox Last 24 Hr 98.2 F-101.0 F 85-114 14-20 103-120/60-71 98-100 Gen: NAD at rest Heart: RRR Lung: scattered rhonchi Abd: soft, nontender Ext: + edema CBC, BMP 05/19/19 05:35 05/19/19 05:35 Active Medications Albuterol Sulfate (Ventolin Hfa Inhaler -) 2 puff IH Q4H PRN PRN Reason: SHORT OF BREATH/WHEEZING Albuterol/Ipratropium (Duoneb -) 1 amp NEB RTID [facility] Last Admin: 05/19/19 07:34 Dose: 1 amp Alprazolam (Xanax -) 0.25 mg PO Q8H PRN PRN Reason: ANXIETY Last Admin: 05/19/19 11:38 Dose: 0.25 mg Bacitracin (Bacitracin -) 1 applic TP DAILY [facility] Last Admin: 05/19/19 09:47 Dose: 1 applic Bismuth Subsalicylate (Pepto-Bismol -) 524 mg PO BID PRN PRN Reason: DIARRHEA Buspirone HCl (Buspar -) 10 mg PO BID [facility] Last Admin: 05/19/19 09:48 Dose: 10 mg Cholecalciferol (Vitamin D3 -) 1,000 unit PO DAILY [facility] Last Admin: 05/19/19 09:49 Dose: 1,000 unit Clotrimazole (Lotrimin 1% Cream -) 1 applic TP BID [facility] Last Admin: 05/19/19 09:49 Dose: 1 applic Docusate Sodium (Colace -) 100 mg PO TID [facility] Last Admin: 05/19/19 05:42 Dose: Not Given Ferrous Sulfate (Feosol -) 325 mg PO BID [facility] Last Admin: 05/19/19 09:49 Dose: 325 mg Hydromorphone HCl (Dilaudid -) 2 mg PO Q6H PRN PRN Reason: PAIN LEVEL 6-10 Last Admin: 05/19/19 12:33 Dose: 2 mg Insulin Aspart (Novolog Vial Sliding Scale -) 1 vial SQ ACHS [facility]; Protocol Last Admin: 05/19/19 11:26 Dose: Not Given Levothyroxine Sodium (Synthroid -) 75 mcg PO DAILY@0600 [facility] Last Admin: 05/19/19 05:42 Dose: 75 mcg Loperamide HCl (Imodium -) 2 mg PO Q8H PRN PRN Reason: DIARRHEA Last Admin: 05/18/19 21:37 Dose: 2 mg Montelukast Sodium (Singulair -) 10 mg PO HS [facility] Last Admin: 05/18/19 21:37 Dose: 10 mg Morphine Sulfate (Morphine Sulfate) 2 mg IVPUSH [id number] PRN PRN Reason: PAIN-PACU ORDER X 4 DOSES ONLY Last Admin: 05/18/19 18:15 Dose: 2 mg Multivit/Ca Carb/B Cmplx/FA/Prenat (Nephro-Héctor -) 1 tablet PO DAILY [facility] Last Admin: 05/19/19 09:48 Dose: 1 tablet Nystatin (Nystop Powder -) 1 applic TP DAILY [facility] Last Admin: 05/19/19 09:50 Dose: 1 applic Olanzapine (Zyprexa -) 2.5 mg PO HS [facility] Last Admin: 05/18/19 21:37 Dose: 2.5 mg Potassium Chloride (K-Dur -) 20 meq PO DAILY [facility] Last Admin: 05/19/19 11:38 Dose: 20 meq Ranitidine HCl (Zantac -) 150 mg PO DAILY [facility] Last Admin: 05/19/19 09:48 Dose: 150 mg Rosuvastatin Calcium (Crestor -) 10 mg PO DAILY [facility] Last Admin: 05/19/19 09:49 Dose: 10 mg Sodium Bicarbonate (Sodium Bicarbonate -) 650 mg PO TID [facility] Last Admin: 05/19/19 05:42 Dose: 650 mg Topiramate (Topamax -) 100 mg PO DAILY [facility] Last Admin: 05/19/19 09:49 Dose: 100 mg Venlafaxine HCl (Effexor Xr -) 75 mg PO DAILY [facility] Last Admin: 05/19/19 09:49 Dose: 75 mg Zolpidem Tartrate (Ambien -) 5 mg PO HS PRN PRN Reason: INSOMNIA Last Admin: 05/18/19 21:37 Dose: 5 mg A/P s/p Fall Bilateral Proximal Tibial/Fibula Fractures COPD Chronic Hypoxic Respiratory Failure Atrial Fibrillation HTN Hyperlipidemia h/o Uterine Ca Anemia - pain control - inhaled bronchodilators - O2 to keep Spo2 >90% - DVT prophylaxis
[2019-05-19 15:49] LABS: HEMATOCRIT 26.3 % (32.4-45.2); HEMOGLOBIN 8.8 GM/dL (10.7-15.3); MCH 30.9 pg (25.7-33.7); MCHC 33.5 g/dl (32.0-36.0); MEAN CELL VOLUME 92.1 fl (80-96); MEAN PLT VOLUME 8.7 fl (7.5-11.1); PLATELET COUNT 201 K/MM3 (134-434); RBC 2.85 M/mm3 (3.60-5.2); RDW 15.8 % (11.6-15.6); WHITE BLOOD COUNT 9.3 K/mm3 (4.0-10.0)
[2019-05-19 16:11] LABS: BLOOD UREA NITROGEN 12.1 mg/dL (7-18); CALCIUM 8.3 mg/dL (8.5-10.1); CREATININE 0.8 mg/dL (0.55-1.3); POTASSIUM 3.5 mmol/L (3.5-5.1)
[2019-05-19] MEDS: LOPERAMIDE HCL 2 MG CAPSULE PO PRN (18:43)
[2019-05-19] MEDS: MONTELUKAST NA 10 MG TABLET PO SCH (21:29)
[2019-05-19] MEDS: OLANZapine 2.5 MG TABLET PO SCH (21:29)
[2019-05-19] MEDS: ZOLPIDEM TARTRATE 5 MG TABLET PO PRN (21:29)
[2019-05-19] MEDS: BISMUTH SUBSALICYLATE 524 MG/30 ML UD PO PRN (23:32)
[2019-05-20] MEDS: HYDROmorphone HCL 2 MG TABLET PO PRN ×4 (00:37→19:27)
[2019-05-20] MEDS: LEVOTHYROXINE NA 75 MCG TABLET (FP) PO SCH (05:49)
[2019-05-20] MEDS: SODIUM BICARBONATE 650 MG TABLET PO SCH ×3 (05:49→21:47)
[2019-05-20] MEDS: DOCUSATE SODIUM 100 MG CAPSULE (FP) PO SCH ×3 (05:49→21:47)
[2019-05-20] MEDS: INSULIN SLIDING SCALE (NOVOLOG) 1 VIAL SQ SCH ×4 (06:02→21:48)
[2019-05-20 07:37] LABS: HEMATOCRIT 27.1 % (32.4-45.2); HEMOGLOBIN 9.1 GM/dL (10.7-15.3); MCH 30.8 pg (25.7-33.7); MCHC 33.5 g/dl (32.0-36.0); MEAN CELL VOLUME 91.8 fl (80-96); MEAN PLT VOLUME 8.6 fl (7.5-11.1); RBC 2.96 M/mm3 (3.60-5.2); RDW 15.6 % (11.6-15.6); WHITE BLOOD COUNT 8.2 K/mm3 (4.0-10.0)
[2019-05-20 07:49] LABS: BLOOD UREA NITROGEN 11.3 mg/dL (7-18); CALCIUM 7.9 mg/dL (8.5-10.1)
[2019-05-20] MEDS: ALBUTEROL SO4 2.5/IPRATROPIUM 0.5 INH SOL 3 ML VIAL.NEB. NEB SCH ×3 (07:55→20:25)
[2019-05-20 07:58] LABS: POTASSIUM 2.8 mmol/L (3.5-5.1)
[2019-05-20 08:04] LABS: PLATELET COUNT 212 K/MM3 (134-434)
[2019-05-20 08:06] LABS: SERUM IRON SATURATION 20 % (15-55); TOTAL IRON BINDING CAPACITY 243 ug/dL (250-450)
[2019-05-20] MEDS: POTASSIUM CHLORIDE TABS 20 MEQ TABLET.ER (FP) PO SCH ×3 (09:20→15:03)
[2019-05-20] MEDS: CHOLECALCIFEROL (VIT D3) 1,000 UNIT (25 MCG) TABLET PO SCH (09:21)
[2019-05-20] MEDS: busPIRone HCL 10 MG TABLET (FP) PO SCH ×2 (09:21→21:47)
[2019-05-20] MEDS: ROSUVASTATIN CA 10 MG TABLET (FP) PO SCH (09:21)
[2019-05-20] MEDS: VENLAFAXINE HCL 75 MG E.R. CAPSULES (FP) PO SCH (09:21)
[2019-05-20] MEDS: VITAMIN B COMP W-C 1 EA TABLET PO SCH (09:21)
[2019-05-20] MEDS: TOPIRAMATE 100 MG TABLET PO SCH (09:21)
[2019-05-20] MEDS: RANITIDINE HCL 150 MG TABLET (FP) PO SCH (09:21)
[2019-05-20] MEDS: FERROUS SO4 325 MG TABLET (FP) PO SCH ×2 (09:21→21:47)
[2019-05-20] MEDS: BISMUTH SUBSALICYLATE 524 MG/30 ML UD PO PRN (09:22)
[2019-05-20] MEDS: NYSTATIN POWDER 100,000 UNITS/GM - 15 GM TOPICAL POWDER TP SCH (09:23)
[2019-05-20] MEDS: CLOTRIMAZOLE 1% CREAM 15 GM TUBE TP SCH ×2 (09:23→21:48)
[2019-05-20] MEDS: BACITRACIN 15 GM TUBE TOPICAL OINTMENT TP SCH (09:24)
--- NOTE | 2019-05-20 10:14 | PN ---
Progress Note (short form) - Note Progress Note: AWAITING PLACEMENT FOR SNF D/W SEAT NAILER AND PATIENT HAS USED ALL OF HER [facility] DAYS WILL MONITOR HERE IN HOSPITAL UNTIL PLAN OF CARE FINALIZED. 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 Code(s): Z92.29 - PERSONAL HISTORY OF OTHER DRUG THERAPY (3) Acute and chronic respiratory failure with hypoxia Code(s): J96.21 - ACUTE AND CHRONIC RESPIRATORY FAILURE WITH HYPOXIA (4) Acute wheezy bronchitis Code(s): J20.9 - ACUTE BRONCHITIS, UNSPECIFIED (5) Afib Code(s): I48.91 - UNSPECIFIED ATRIAL FIBRILLATION (6) Bacteremia due to methicillin resistant Staphylococcus aureus Code(s): R78.81 - BACTEREMIA (7) Bipolar 1 disorder Code(s): F31.9 - BIPOLAR DISORDER, UNSPECIFIED (8) Diabetes Code(s): E11.9 - TYPE 2 DIABETES MELLITUS WITHOUT COMPLICATIONS (9) Anxiety Code(s): F41.9 - ANXIETY DISORDER, UNSPECIFIED (10) Hemarthrosis Code(s): M25.00 - HEMARTHROSIS, UNSPECIFIED JOINT
--- NOTE | 2019-05-20 10:19 | PN ---
Progress Note (short form) - Note Progress Note: Ortho Pt seen and examined s/p bilateral proximal tibia fxs- Pt comfortable Selected Entries 05/20/19 06:47 Temperature 99.8 F H Pulse Rate 80 Respiratory 20 Rate Blood Pressure 122/66 Laboratory Tests 05/20/19 06:47 WBC 8.2 Hgb 9.1 L Hct 27.1 L Plt Count 212 cast intact nvi a/p NWB b/l LE decubtius checks pain control ok to d/c from ortho pov d/w Dr. Miller
[2019-05-20] MEDS: APIXABAN 5 MG TABLET PO SCH ×2 (12:28→21:47)
[2019-05-20] MEDS: LOPERAMIDE HCL 2 MG CAPSULE PO PRN ×2 (12:29→21:46)
[2019-05-20] MEDS: ALPRAZolam 0.25 MG TABLET PO PRN ×2 (15:03→23:56)
[2019-05-20] MEDS: MINERAL OIL/PET HY-PHL TOPICAL OINTMENT 454 GM JAR TP PRN (15:04)
--- NOTE | 2019-05-20 15:23 | PN ---
Progress Note, Physician History of Present Illness: PULMONARY ALERT,- RESP DISTRESS,+ C/O ABD DISCOMFORT - Current Medication List Current Medications: Active Medications Albuterol Sulfate (Ventolin Hfa Inhaler -) 2 puff IH Q4H PRN PRN Reason: SHORT OF BREATH/WHEEZING Albuterol/Ipratropium (Duoneb -) 1 amp NEB RTID [facility] Last Admin: 05/20/19 13:54 Dose: 1 amp Alprazolam (Xanax -) 0.25 mg PO Q8H PRN PRN Reason: ANXIETY Last Admin: 05/20/19 15:03 Dose: 0.25 mg Apixaban (Eliquis -) 5 mg PO BID [facility] Last Admin: 05/20/19 12:28 Dose: 5 mg Bacitracin (Bacitracin -) 1 applic TP DAILY [facility] Last Admin: 05/20/19 09:24 Dose: Not Given Bismuth Subsalicylate (Pepto-Bismol -) 524 mg PO BID PRN PRN Reason: DIARRHEA Last Admin: 05/20/19 09:22 Dose: 524 mg Buspirone HCl (Buspar -) 10 mg PO BID [facility] Last Admin: 05/20/19 09:21 Dose: 10 mg Cholecalciferol (Vitamin D3 -) 1,000 unit PO DAILY [facility] Last Admin: 05/20/19 09:21 Dose: 1,000 unit Clotrimazole (Lotrimin 1% Cream -) 1 applic TP BID [facility] Last Admin: 05/20/19 09:23 Dose: 1 applic Docusate Sodium (Colace -) 100 mg PO TID [facility] Last Admin: 05/20/19 13:47 Dose: Not Given Emollient Ointment (Aquaphor -) 1 applic TP TID PRN PRN Reason: INCONTINENT DERMATITIS Last Admin: 05/20/19 15:04 Dose: 1 applic Ferrous Sulfate (Feosol -) 325 mg PO BID [facility] Last Admin: 05/20/19 09:21 Dose: 325 mg Hydromorphone HCl (Dilaudid -) 2 mg PO Q6H PRN PRN Reason: PAIN LEVEL 6-10 Last Admin: 05/20/19 12:27 Dose: 2 mg Insulin Aspart (Novolog Vial Sliding Scale -) 1 vial SQ ACHS [facility]; Protocol Last Admin: 05/20/19 12:58 Dose: Not Given Levothyroxine Sodium (Synthroid -) 75 mcg PO DAILY@0600 [facility] Last Admin: 05/20/19 05:49 Dose: 75 mcg Loperamide HCl (Imodium -) 2 mg PO Q8H PRN PRN Reason: DIARRHEA Last Admin: 05/20/19 12:29 Dose: 2 mg Montelukast Sodium (Singulair -) 10 mg PO HS [facility] Last Admin: 05/19/19 21:29 Dose: 10 mg Multivit/Ca Carb/B Cmplx/FA/Prenat (Nephro-Héctor -) 1 tablet PO DAILY [facility] Last Admin: 05/20/19 09:21 Dose: 1 tablet Nystatin (Nystop Powder -) 1 applic TP DAILY [facility] Last Admin: 05/20/19 09:23 Dose: 1 applic Olanzapine (Zyprexa -) 2.5 mg PO HS [facility] Last Admin: 05/19/19 21:29 Dose: 2.5 mg Potassium Chloride (K-Dur -) 20 meq PO DAILY [facility] Last Admin: 05/20/19 09:20 Dose: 20 meq Ranitidine HCl (Zantac -) 150 mg PO DAILY [facility] Last Admin: 05/20/19 09:21 Dose: 150 mg Rosuvastatin Calcium (Crestor -) 10 mg PO DAILY [facility] Last Admin: 05/20/19 09:21 Dose: 10 mg Sodium Bicarbonate (Sodium Bicarbonate -) 650 mg PO TID [facility] Last Admin: 05/20/19 15:03 Dose: 650 mg Topiramate (Topamax -) 100 mg PO DAILY [facility] Last Admin: 05/20/19 09:21 Dose: 100 mg Venlafaxine HCl (Effexor Xr -) 75 mg PO DAILY [facility] Last Admin: 05/20/19 09:21 Dose: 75 mg Zolpidem Tartrate (Ambien -) 5 mg PO HS PRN PRN Reason: INSOMNIA Last Admin: 05/19/19 21:29 Dose: 5 mg - Objective Vital Signs: Vital Signs Temperature 99.8 F H 05/20/19 06:47 Pulse Rate 86 05/20/19 13:54 Respiratory Rate 20 05/20/19 06:47 Blood Pressure 122/66 05/20/19 06:47 O2 Sat by Pulse Oximetry (%) 98 05/20/19 13:54 Constitutional: Yes: Well Nourished, Calm Eyes: Yes: WNL HENT: Yes: WNL Neck: Yes: Supple (TRACH) Cardiovascular: Yes: Pulse Irregular, S1, S2 Respiratory: Yes: Rhonchi (WHEEZES), Wheezes Gastrointestinal: Yes: Normal Bowel Sounds, Soft Extremities: Yes: Other (TAO LOWER EXT HARD CASTS) Labs: CBC, BMP 05/20/19 06:47 05/20/19 06:47 INR, PTT INR 1.07 (0.83-1.09) 05/15/19 03:00 Problem List - Problems (1) Bilateral closed proximal tibial fracture Code(s): S82.101A - UNSP FRACTURE OF UPPER END OF RIGHT TIBIA, INIT FOR CLOS FX ; S82.102A - UNSP FRACTURE OF UPPER END OF LEFT TIBIA, INIT FOR CLOS FX (2) Tibial plateau fracture Code(s): S82.143A - DISPLACED BICONDYLAR FRACTURE OF UNSP TIBIA, INIT (3) Afib Code(s): I48.91 - UNSPECIFIED ATRIAL FIBRILLATION (4) Anemia Code(s): D64.9 - ANEMIA, UNSPECIFIED (5) Chronic respiratory failure Code(s): J96.10 - CHRONIC RESPIRATORY FAILURE, UNSP W HYPOXIA OR HYPERCAPNIA (6) Diabetes Code(s): E11.9 - TYPE 2 DIABETES MELLITUS WITHOUT COMPLICATIONS (7) Hypothyroid Code(s): E03.9 - HYPOTHYROIDISM, UNSPECIFIED Qualifiers: (8) Tracheostomy in place Code(s): Z93.0 - TRACHEOSTOMY STATUS (9) Chronic respiratory failure with hypoxia Code(s): J96.11 - CHRONIC RESPIRATORY FAILURE WITH HYPOXIA Assessment/Plan A/P s/p Fall Bilateral Proximal Tibial/Fibula Fractures COPD Chronic Hypoxic Respiratory Failure Atrial Fibrillation HTN Hyperlipidemia h/o Uterine Ca Anemia - pain control - inhaled bronchodilators - O2 to keep Spo2 >90% - DVT prophylaxis - replete K DR RUFFIN
[2019-05-20] MEDS: ZOLPIDEM TARTRATE 5 MG TABLET PO PRN (21:46)
[2019-05-20] MEDS: OLANZapine 2.5 MG TABLET PO SCH (21:47)
[2019-05-20] MEDS: MONTELUKAST NA 10 MG TABLET PO SCH (21:47)
[2019-05-21] MEDS: HYDROmorphone HCL 2 MG TABLET PO PRN ×4 (02:55→22:23)
[2019-05-21] MEDS: SODIUM BICARBONATE 650 MG TABLET PO SCH ×3 (05:56→21:59)
[2019-05-21] MEDS: LEVOTHYROXINE NA 75 MCG TABLET (FP) PO SCH (05:56)
[2019-05-21] MEDS: DOCUSATE SODIUM 100 MG CAPSULE (FP) PO SCH ×3 (05:57→21:59)
[2019-05-21] MEDS: LOPERAMIDE HCL 2 MG CAPSULE PO PRN ×3 (05:57→22:05)
[2019-05-21] MEDS: INSULIN SLIDING SCALE (NOVOLOG) 1 VIAL SQ SCH ×4 (06:23→22:02)
[2019-05-21] MEDS: ALBUTEROL SO4 2.5/IPRATROPIUM 0.5 INH SOL 3 ML VIAL.NEB. NEB SCH ×3 (07:30→20:40)
--- NOTE | 2019-05-21 07:42 | PN ---
Progress Note, Physician - Current Medication List Current Medications: Active Medications Albuterol Sulfate (Ventolin Hfa Inhaler -) 2 puff IH Q4H PRN PRN Reason: SHORT OF BREATH/WHEEZING Albuterol/Ipratropium (Duoneb -) 1 amp NEB RTID [facility] Last Admin: 05/20/19 20:25 Dose: 1 amp Alprazolam (Xanax -) 0.25 mg PO Q8H PRN PRN Reason: ANXIETY Last Admin: 05/20/19 23:56 Dose: 0.25 mg Apixaban (Eliquis -) 5 mg PO BID [facility] Last Admin: 05/20/19 21:47 Dose: 5 mg Bacitracin (Bacitracin -) 1 applic TP DAILY [facility] Last Admin: 05/20/19 09:24 Dose: Not Given Bismuth Subsalicylate (Pepto-Bismol -) 524 mg PO BID PRN PRN Reason: DIARRHEA Last Admin: 05/20/19 09:22 Dose: 524 mg Buspirone HCl (Buspar -) 10 mg PO BID [facility] Last Admin: 05/20/19 21:47 Dose: 10 mg Cholecalciferol (Vitamin D3 -) 1,000 unit PO DAILY [facility] Last Admin: 05/20/19 09:21 Dose: 1,000 unit Clotrimazole (Lotrimin 1% Cream -) 1 applic TP BID [facility] Last Admin: 05/20/19 21:48 Dose: 1 applic Docusate Sodium (Colace -) 100 mg PO TID [facility] Last Admin: 05/21/19 05:57 Dose: Not Given Emollient Ointment (Aquaphor -) 1 applic TP TID PRN PRN Reason: INCONTINENT DERMATITIS Last Admin: 05/20/19 15:04 Dose: 1 applic Ferrous Sulfate (Feosol -) 325 mg PO BID [facility] Last Admin: 05/20/19 21:47 Dose: 325 mg Hydromorphone HCl (Dilaudid -) 2 mg PO Q6H PRN PRN Reason: PAIN LEVEL 6-10 Last Admin: 05/21/19 02:55 Dose: 2 mg Insulin Aspart (Novolog Vial Sliding Scale -) 1 vial SQ ACHS [facility]; Protocol Last Admin: 05/21/19 06:23 Dose: Not Given Lactobacillus Acidophilus (Bacid -) 1 tab PO DAILY [facility] Levothyroxine Sodium (Synthroid -) 75 mcg PO DAILY@0600 [facility] Last Admin: 05/21/19 05:56 Dose: 75 mcg Loperamide HCl (Imodium -) 2 mg PO Q8H PRN PRN Reason: DIARRHEA Last Admin: 05/21/19 05:57 Dose: 2 mg Montelukast Sodium (Singulair -) 10 mg PO HS [facility] Last Admin: 05/20/19 21:47 Dose: 10 mg Multivit/Ca Carb/B Cmplx/FA/Prenat (Nephro-Héctor -) 1 tablet PO DAILY [facility] Last Admin: 05/20/19 09:21 Dose: 1 tablet Nystatin (Nystop Powder -) 1 applic TP DAILY [facility] Last Admin: 05/20/19 09:23 Dose: 1 applic Olanzapine (Zyprexa -) 2.5 mg PO HS [facility] Last Admin: 05/20/19 21:47 Dose: 2.5 mg Potassium Chloride (K-Dur -) 20 meq PO DAILY [facility] Last Admin: 05/20/19 09:20 Dose: 20 meq Ranitidine HCl (Zantac -) 150 mg PO DAILY [facility] Last Admin: 05/20/19 09:21 Dose: 150 mg Rosuvastatin Calcium (Crestor -) 10 mg PO DAILY [facility] Last Admin: 05/20/19 09:21 Dose: 10 mg Sodium Bicarbonate (Sodium Bicarbonate -) 650 mg PO TID [facility] Last Admin: 05/21/19 05:56 Dose: 650 mg Topiramate (Topamax -) 100 mg PO DAILY [facility] Last Admin: 05/20/19 09:21 Dose: 100 mg Venlafaxine HCl (Effexor Xr -) 75 mg PO DAILY [facility] Last Admin: 05/20/19 09:21 Dose: 75 mg Zolpidem Tartrate (Ambien -) 5 mg PO HS PRN PRN Reason: INSOMNIA Last Admin: 05/20/19 21:46 Dose: 5 mg - Objective Vital Signs: Vital Signs Temperature 99.3 F 05/21/19 06:00 Pulse Rate 129 H 05/21/19 06:00 Respiratory Rate 20 05/21/19 06:00 Blood Pressure 136/83 05/21/19 06:00 O2 Sat by Pulse Oximetry (%) 98 05/20/19 21:51 Cardiovascular: Yes: S1, S2 Respiratory: Yes: Regular, CTA Bilaterally Gastrointestinal: Yes: Normal Bowel Sounds, Soft Labs: CBC, BMP 05/20/19 06:47 05/20/19 06:47 INR, PTT INR 1.07 (0.83-1.09) 05/15/19 03:00 Assessment/Plan - Problems (1) Bilateral closed proximal tibial fracture Assessment/Plan: -Ortho consult noted -pain control -Xray shows acute fracture proximal one third tibial diametaphysis, cannot exclude injury in tibial plateau Code(s): S82.101A - UNSP FRACTURE OF UPPER END OF RIGHT TIBIA, INIT FOR CLOS FX ; S82.102A - UNSP FRACTURE OF UPPER END OF LEFT TIBIA, INIT FOR CLOS FX (2) Afib Assessment/Plan: -Eliquis on hold due to possible surgery -will start on Heparin drip Code(s): I48.91 - UNSPECIFIED ATRIAL FIBRILLATION (3) Chronic respiratory failure Assessment/Plan: -O2 via trach collar -bronchodilators -montelukast -keep SpO2 >90% Code(s): J96.10 - CHRONIC RESPIRATORY FAILURE, UNSP W HYPOXIA OR HYPERCAPNIA (4) Diabetes Assessment/Plan: -BGM ACHS -ISS Code(s): E11.9 - TYPE 2 DIABETES MELLITUS WITHOUT COMPLICATIONS (5) Hypothyroid Assessment/Plan: -Levothyroxine Code(s): E03.9 - HYPOTHYROIDISM, UNSPECIFIED Qualifiers: (6) COPD (chronic obstructive pulmonary disease) Assessment/Plan: -Montelukast -O2 via trach collar -keep SpO2 >90% Code(s): J44.9 - CHRONIC OBSTRUCTIVE PULMONARY DISEASE, UNSPECIFIED (7) GERD (gastroesophageal reflux disease) Assessment/Plan: -Rantidine Code(s): K21.9 - GASTRO-ESOPHAGEAL REFLUX DISEASE WITHOUT ESOPHAGITIS (8) Hyperlipidemia Assessment/Plan: -Crestor Code(s): E78.5 - HYPERLIPIDEMIA, UNSPECIFIED Qualifiers:
[2019-05-21 08:42] LABS: BLOOD UREA NITROGEN 8.9 mg/dL (7-18); CALCIUM 8.2 mg/dL (8.5-10.1); CREATININE 0.8 mg/dL (0.55-1.3); POTASSIUM 3.5 mmol/L (3.5-5.1)
[2019-05-21 08:43] LABS: RBC 2.93 M/mm3 (3.60-5.2); WHITE BLOOD COUNT 8.5 K/mm3 (4.0-10.0)
[2019-05-21 08:44] LABS: HEMATOCRIT 27.4 % (32.4-45.2); MCH 30.8 pg (25.7-33.7); MCHC 32.9 g/dl (32.0-36.0); MEAN CELL VOLUME 93.5 fl (80-96); MEAN PLT VOLUME 8.9 fl (7.5-11.1); PLATELET COUNT 242 K/MM3 (134-434); RDW 15.6 % (11.6-15.6)
[2019-05-21] MEDS: MINERAL OIL/PET HY-PHL TOPICAL OINTMENT 454 GM JAR TP PRN (09:29)
[2019-05-21] MEDS: ROSUVASTATIN CA 10 MG TABLET (FP) PO SCH (09:30)
[2019-05-21] MEDS: LACTOBACILLUS ACIDOPHILUS 1 TABLET PO SCH (09:30)
[2019-05-21] MEDS: busPIRone HCL 10 MG TABLET (FP) PO SCH ×2 (09:30→22:00)
[2019-05-21] MEDS: VITAMIN B COMP W-C 1 EA TABLET PO SCH (09:31)
[2019-05-21] MEDS: POTASSIUM CHLORIDE TABS 20 MEQ TABLET.ER (FP) PO SCH (09:31)
[2019-05-21] MEDS: TOPIRAMATE 100 MG TABLET PO SCH (09:31)
[2019-05-21] MEDS: VENLAFAXINE HCL 75 MG E.R. CAPSULES (FP) PO SCH (09:32)
[2019-05-21] MEDS: FERROUS SO4 325 MG TABLET (FP) PO SCH ×2 (09:32→21:59)
[2019-05-21] MEDS: RANITIDINE HCL 150 MG TABLET (FP) PO SCH (09:32)
[2019-05-21] MEDS: APIXABAN 5 MG TABLET PO SCH ×2 (09:32→21:59)
[2019-05-21] MEDS: CHOLECALCIFEROL (VIT D3) 1,000 UNIT (25 MCG) TABLET PO SCH (09:32)
[2019-05-21] MEDS: NYSTATIN POWDER 100,000 UNITS/GM - 15 GM TOPICAL POWDER TP SCH (09:33)
[2019-05-21] MEDS: BACITRACIN 15 GM TUBE TOPICAL OINTMENT TP SCH (09:33)
[2019-05-21] MEDS: CLOTRIMAZOLE 1% CREAM 15 GM TUBE TP SCH ×2 (09:33→22:24)
[2019-05-21] MEDS ORDERED: INSULIN (NOVOLOG) ASPART 100 UNITS/ML 10ML VIAL ONE (11:03)
[2019-05-21] MEDS: BISMUTH SUBSALICYLATE 524 MG/30 ML UD PO PRN (11:14)
[2019-05-21] MEDS: ALPRAZolam 0.25 MG TABLET PO PRN ×2 (11:55→22:23)
--- NOTE | 2019-05-21 12:10 | PN ---
Progress Note, Physician History of Present Illness: pulmonary alert,-sob,+ c/o diarrhea - Current Medication List Current Medications: Active Medications Albuterol Sulfate (Ventolin Hfa Inhaler -) 2 puff IH Q4H PRN PRN Reason: SHORT OF BREATH/WHEEZING Albuterol/Ipratropium (Duoneb -) 1 amp NEB RTID [facility] Last Admin: 05/21/19 07:30 Dose: 1 amp Alprazolam (Xanax -) 0.25 mg PO Q8H PRN PRN Reason: ANXIETY Last Admin: 05/21/19 11:55 Dose: 0.25 mg Apixaban (Eliquis -) 5 mg PO BID [facility] Last Admin: 05/21/19 09:32 Dose: 5 mg Bacitracin (Bacitracin -) 1 applic TP DAILY [facility] Last Admin: 05/21/19 09:33 Dose: Not Given Bismuth Subsalicylate (Pepto-Bismol -) 524 mg PO BID PRN PRN Reason: DIARRHEA Last Admin: 05/21/19 11:14 Dose: 524 mg Buspirone HCl (Buspar -) 10 mg PO BID [facility] Last Admin: 05/21/19 09:30 Dose: 10 mg Cholecalciferol (Vitamin D3 -) 1,000 unit PO DAILY [facility] Last Admin: 05/21/19 09:32 Dose: 1,000 unit Clotrimazole (Lotrimin 1% Cream -) 1 applic TP BID [facility] Last Admin: 05/21/19 09:33 Dose: 1 applic Docusate Sodium (Colace -) 100 mg PO TID [facility] Last Admin: 05/21/19 05:57 Dose: Not Given Emollient Ointment (Aquaphor -) 1 applic TP TID PRN PRN Reason: INCONTINENT DERMATITIS Last Admin: 05/21/19 09:29 Dose: 1 applic Ferrous Sulfate (Feosol -) 325 mg PO BID [facility] Last Admin: 05/21/19 09:32 Dose: 325 mg Hydromorphone HCl (Dilaudid -) 2 mg PO Q6H PRN PRN Reason: PAIN LEVEL 6-10 Last Admin: 05/21/19 09:32 Dose: 2 mg Insulin Aspart (Novolog Vial Sliding Scale -) 1 vial SQ ACHS [facility]; Protocol Last Admin: 05/21/19 11:37 Dose: Not Given Lactobacillus Acidophilus (Bacid -) 1 tab PO DAILY [facility] Last Admin: 05/21/19 09:30 Dose: 1 tab Levothyroxine Sodium (Synthroid -) 75 mcg PO DAILY@0600 [facility] Last Admin: 05/21/19 05:56 Dose: 75 mcg Loperamide HCl (Imodium -) 2 mg PO Q8H PRN PRN Reason: DIARRHEA Last Admin: 05/21/19 05:57 Dose: 2 mg Montelukast Sodium (Singulair -) 10 mg PO HS [facility] Last Admin: 05/20/19 21:47 Dose: 10 mg Multivit/Ca Carb/B Cmplx/FA/Prenat (Nephro-Héctor -) 1 tablet PO DAILY [facility] Last Admin: 05/21/19 09:31 Dose: 1 tablet Nystatin (Nystop Powder -) 1 applic TP DAILY [facility] Last Admin: 05/21/19 09:33 Dose: 1 applic Olanzapine (Zyprexa -) 2.5 mg PO HS [facility] Last Admin: 05/20/19 21:47 Dose: 2.5 mg Potassium Chloride (K-Dur -) 20 meq PO DAILY [facility] Last Admin: 05/21/19 09:31 Dose: 20 meq Ranitidine HCl (Zantac -) 150 mg PO DAILY [facility] Last Admin: 05/21/19 09:32 Dose: 150 mg Rosuvastatin Calcium (Crestor -) 10 mg PO DAILY [facility] Last Admin: 05/21/19 09:30 Dose: 10 mg Sodium Bicarbonate (Sodium Bicarbonate -) 650 mg PO TID [facility] Last Admin: 05/21/19 05:56 Dose: 650 mg Topiramate (Topamax -) 100 mg PO DAILY [facility] Last Admin: 05/21/19 09:31 Dose: 100 mg Venlafaxine HCl (Effexor Xr -) 75 mg PO DAILY [facility] Last Admin: 05/21/19 09:32 Dose: 75 mg Zolpidem Tartrate (Ambien -) 5 mg PO HS PRN PRN Reason: INSOMNIA Last Admin: 05/20/19 21:46 Dose: 5 mg - Objective Vital Signs: Vital Signs Temperature 99.9 F H 05/21/19 09:27 Pulse Rate 117 H 05/21/19 09:27 Respiratory Rate 20 05/21/19 09:27 Blood Pressure 111/65 05/21/19 09:27 O2 Sat by Pulse Oximetry (%) 98 05/20/19 21:51 Constitutional: Yes: Well Nourished, Calm Eyes: Yes: WNL HENT: Yes: WNL Neck: Yes: Supple (trach) Cardiovascular: Yes: Pulse Irregular, S1, S2 Respiratory: Yes: Wheezes (few wheezes bilaterally) Gastrointestinal: Yes: Normal Bowel Sounds, Soft Extremities: Yes: Other (heriberto lower ext hard cast) Labs: CBC, BMP 05/21/19 07:54 05/21/19 07:54 INR, PTT INR 1.07 (0.83-1.09) 05/15/19 03:00 Problem List - Problems (1) Bilateral closed proximal tibial fracture Code(s): S82.101A - UNSP FRACTURE OF UPPER END OF RIGHT TIBIA, INIT FOR CLOS FX ; S82.102A - UNSP FRACTURE OF UPPER END OF LEFT TIBIA, INIT FOR CLOS FX (2) Tibial plateau fracture Code(s): S82.143A - DISPLACED BICONDYLAR FRACTURE OF UNSP TIBIA, INIT (3) Afib Code(s): I48.91 - UNSPECIFIED ATRIAL FIBRILLATION (4) Anemia Code(s): D64.9 - ANEMIA, UNSPECIFIED (5) Chronic respiratory failure Code(s): J96.10 - CHRONIC RESPIRATORY FAILURE, UNSP W HYPOXIA OR HYPERCAPNIA (6) Diabetes Code(s): E11.9 - TYPE 2 DIABETES MELLITUS WITHOUT COMPLICATIONS (7) Hypothyroid Code(s): E03.9 - HYPOTHYROIDISM, UNSPECIFIED Qualifiers: (8) Tracheostomy in place Code(s): Z93.0 - TRACHEOSTOMY STATUS (9) Chronic respiratory failure with hypoxia Code(s): J96.11 - CHRONIC RESPIRATORY FAILURE WITH HYPOXIA Assessment/Plan A/P s/p Fall Bilateral Proximal Tibial/Fibula Fractures COPD Chronic Hypoxic Respiratory Failure Atrial Fibrillation HTN Hyperlipidemia h/o Uterine Ca Anemia - pain control - inhaled bronchodilators - O2 to keep Spo2 >90% - DVT prophylaxis - GI evaluation DR RUFFIN
[2019-05-21] MEDS: MONTELUKAST NA 10 MG TABLET PO SCH (21:59)
[2019-05-21] MEDS: OLANZapine 2.5 MG TABLET PO SCH (21:59)
[2019-05-22] MEDS: ZOLPIDEM TARTRATE 5 MG TABLET PO PRN ×2 (00:45→21:57)
[2019-05-22] MEDS: HYDROmorphone HCL 2 MG TABLET PO PRN ×3 (05:47→18:38)
[2019-05-22] MEDS: DOCUSATE SODIUM 100 MG CAPSULE (FP) PO SCH ×3 (05:48→21:55)
[2019-05-22] MEDS: SODIUM BICARBONATE 650 MG TABLET PO SCH ×3 (05:48→21:57)
[2019-05-22] MEDS: LEVOTHYROXINE NA 75 MCG TABLET (FP) PO SCH (05:48)
[2019-05-22] MEDS: INSULIN SLIDING SCALE (NOVOLOG) 1 VIAL SQ SCH ×4 (06:08→21:57)
[2019-05-22] MEDS: ALBUTEROL SO4 2.5/IPRATROPIUM 0.5 INH SOL 3 ML VIAL.NEB. NEB SCH ×3 (07:40→19:55)
[2019-05-22] MEDS ORDERED: PT OWN MED DRAWER 7, Y5N ONE (10:06)
[2019-05-22] MEDS: POTASSIUM CHLORIDE TABS 20 MEQ TABLET.ER (FP) PO SCH (10:21)
[2019-05-22] MEDS: FERROUS SO4 325 MG TABLET (FP) PO SCH ×2 (10:21→21:57)
[2019-05-22] MEDS: VENLAFAXINE HCL 75 MG E.R. CAPSULES (FP) PO SCH (10:21)
[2019-05-22] MEDS: APIXABAN 5 MG TABLET PO SCH ×2 (10:21→21:57)
[2019-05-22] MEDS: CHOLECALCIFEROL (VIT D3) 1,000 UNIT (25 MCG) TABLET PO SCH (10:21)
[2019-05-22] MEDS: ROSUVASTATIN CA 10 MG TABLET (FP) PO SCH (10:21)
[2019-05-22] MEDS: ALPRAZolam 0.25 MG TABLET PO PRN ×2 (10:21→21:57)
[2019-05-22] MEDS: RANITIDINE HCL 150 MG TABLET (FP) PO SCH (10:21)
[2019-05-22] MEDS: LACTOBACILLUS ACIDOPHILUS 1 TABLET PO SCH (10:21)
[2019-05-22] MEDS: TOPIRAMATE 100 MG TABLET PO SCH (10:21)
[2019-05-22] MEDS: BACITRACIN 15 GM TUBE TOPICAL OINTMENT TP SCH (10:22)
[2019-05-22] MEDS: VITAMIN B COMP W-C 1 EA TABLET PO SCH (10:22)
[2019-05-22] MEDS: busPIRone HCL 10 MG TABLET (FP) PO SCH ×2 (10:22→21:57)
[2019-05-22] MEDS: CLOTRIMAZOLE 1% CREAM 15 GM TUBE TP SCH ×2 (10:25→21:58)
[2019-05-22] MEDS: MINERAL OIL/PET HY-PHL TOPICAL OINTMENT 454 GM JAR TP PRN (10:25)
[2019-05-22] MEDS: NYSTATIN POWDER 100,000 UNITS/GM - 15 GM TOPICAL POWDER TP SCH (10:25)
--- NOTE | 2019-05-22 11:37 | CON.GI ---
Consult Consult Specialty:: GI: For Dr. Viera who resumes care 05/23 Referred by:: Dr. Goel Reason for Consultation:: Abdominal pain ad diarrhea - History of Present Illness Chief Complaint: S/p fall with b/l tib/fib fractures History of Present Illness: 53F s/p fall 05/15 with B/L tib/fib fracture. Refused surgery. had IVC filter placed. Thursday had abdominal pain and darrhea. no rectal bleeding. She was uncertain if she has ever had an upper endoscopy but believes that colonoscopy was performed 2-[address] Lund and that it was "OK". In review of [facility], it appears as though she had EGD/Colonoscopy performed by Dr. Carson in the past as well. EGD revealed gastric ulcers. Biopsies were negative for H. Pylori. Colonoscopy revealed a right sided colon anastamosis. Biopsies of the colon were unrevealing for microscopic colitis. She denies abdominal pain. She is coagulopathic. She denies a history of alcohol use or liver disease. Her rectal temp is currently 102.3. Stool spoecimen sent for occult blood is guaiac positive. - Past Medical History Cardio/Vascular: Yes: AFIB (Paroxysmal), HTN, Hyperlipdemia Pulmonary: Yes: Asthma, Bronchitis, COPD, O2 Dependent, Pneumonia, Previously Intubated, Sleep Apnea, Other (Trach). No: Cancer, Pulmonary Embolus, Pulmonary Fibrosis Gastrointestinal: Yes: GI Bleed Hepatobiliary: Yes: Other (Fatty Liver). No: Cirrhosis Renal/: Yes: Cancer (Uterine), Other ([place] in the past) Infectious Disease: Yes: C-Diff (june 2014), Other (Osteomyelitis of thoracic spine) Psych: Yes: Anxiety, Bipolar, Depression Musculoskeletal: Yes: Chronic low back pain, Other (multiple vertebral fractures ) Endocrine: Yes: Diabetes Mellitus, Hypothyroidism Additional Medical History: Frequent c/o abdominal pain-extensive w/u in the past negative. Presumed adhesions from prior surgeries. - Past Surgical History Past Surgical History: Yes: Appendectomy, Colectomy (By description, right colon resection with anastamosis noted on colonoscopy 2013), Hysterectomy (ADE/ BSO), Stent - Alcohol/Substance Use Hx Alcohol Use: No History of Substance Use: reports: Prescription - Smoking History Smoking history: Never smoked Have you smoked in the past 12 months: No Aproximately how many cigarettes per day: 3 If you are a former smoker, when did you quit?: 1997 - Social History Usual Living Arrangement: [facility] 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) History of Recent Travel: No Home Medications - Allergies Allergies/Adverse Reactions: Allergies Allergy/AdvReac Type Severity Reaction Status Date / Time oxycodone [Oxycodone] Allergy Severe Nausea Verified 12/27/18 11:33 oxycodone HCl [From Percocet] Allergy Severe Nausea Verified 12/27/18 11:33 aspirin Allergy Mild Verified 12/27/18 11:33 blueberry [Blueberry] Allergy Mild Swelling Verified 12/27/18 11:33 fentanyl Allergy Mild Vomiting Verified 12/27/18 11:33 ibuprofen Allergy Swelling Verified 12/27/18 11:33 aspartame AdvReac Mild Itching Verified 12/27/18 11:33 - Home Medications Home Medications: Ambulatory Orders Albuterol Sulfate Inhaler - [Ventolin HFA Inhaler -] 2 puff IH Q4H PRN #0 inhaler 11/29/16 Acetaminophen [Tylenol .Regular Strength -] 650 mg PO Q6H PRN #0 tablet Apixaban [Eliquis -] 5 mg PO BID tablet 04/29/17 Baclofen 10 mg PO TID 07/09/18 Rosuvastatin Calcium [Crestor] 10 mg PO DAILY 07/09/18 Montelukast Na [Singulair -] 10 mg PO HS 08/07/18 Topiramate [Topamax -] 100 mg PO DAILY #30 tablet 08/15/18 Alprazolam [Xanax] 0.25 mg PO Q8H PRN tablet MDD 3 10/23/18 Cholecalciferol (Vitamin D3) [Vitamin D3 -] 1,000 unit PO DAILY tab 11/09/18 Doxepin HCl [Sinequan -] 25 mg PO HS capsule 11/09/18 Ferrous Sulfate [Feosol] 325 mg PO BID ud 11/09/18 Nystatin Powder [Nystop Powder -] 1 applic TP DAILY applic 11/09/18 HYDROmorphone [Dilaudid -] 2 mg PO Q4H PRN 12/12/18 Insulin Sliding Scale [Novolog Vial Sliding Scale -] 0 units SQ TIDAC 12/12/18 Pramipexole Di-HCl [Mirapex] 0.5 mg PO TID 12/12/18 Ranitidine [Zantac -] 150 mg PO DAILY 12/12/18 Venlafaxine HCl ER [Effexor Xr -] 75 mg PO DAILY 12/12/18 Vitamin B Comp W-C [Nephro-Héctor -] 1 tablet PO DAILY 12/12/18 Albuterol 2.5/Ipratropium 0.5 [Duoneb -] [address] [facility] RTID amp 12/23/18 Lactobacillus Acidophilus [Bacid -] 1 tab PO DAILY tab 12/23/18 Sodium Bicarbonate - 650 mg PO TID #30 tablet MDD 3 12/23/18 Acetaminophen [Tylenol .Regular Strength -] 650 mg PO Q6HPO PRN tablet Albuterol 2.5/Ipratropium 0.5 [Duoneb -] [address] [facility] RTID amp 12/31/18 Alprazolam [Xanax] 0.25 mg PO Q8H PRN tablet MDD 3 12/31/18 Apixaban [Eliquis -] 5 mg PO BID tablet 12/31/18 Buspirone HCl [Buspar -] 10 mg PO BID tablet 12/31/18 Clotrimazole [Lotrimin -] 1 applic TP BID tube 12/31/18 Diphenhydramine HCl [Benadryl Capsule -] 25 mg PO Q6H PRN capsule 12/31/18 Ferrous Sulfate [Feosol] 325 mg PO BIDWM ud 12/31/18 HYDROmorphone [Dilaudid -] 2 mg PO Q6H PRN tablet MDD 4 12/31/18 Insulin Sliding Scale [Novolog Vial Sliding Scale -] 1 vial SQ ACHS units 12/31 Levothyroxine [Synthroid -] 75 mcg PO DAILY@0600 tablet 12/31/18 Loperamide HCl [Imodium -] 2 mg PO Q8H PRN capsule 12/31/18 Nystatin Powder [Nystop Powder -] 1 applic TP DAILY applic 12/31/18 Pramipexole Dihydrochloride [Mirapex -] 0.25 mg PO TID tablet 12/31/18 Venlafaxine HCl ER [Effexor Xr -] 75 mg PO DAILY@0600 cap.er.24h 12/31/18 Family Disease History - Family Disease History Family Disease History: Diabetes: Mother (Alive: heart surgery), Heart Disease: Mother, [place]: Father (: leukemia), Other: Brother (2,Healthy), Sister (1, Healthy) Review of Systems - Review of Systems Constitutional: denies: Chills Cardiovascular: reports: Edema Respiratory: reports: SOB (chronic) Physical Exam-GI Vital Signs: Vital Signs Temperature 99.2 F 05/22/19 05:53 Pulse Rate 110 H 05/22/19 05:53 Respiratory Rate 18 05/22/19 05:53 Blood Pressure 100/61 05/22/19 05:53 O2 Sat by Pulse Oximetry (%) 99 05/21/19 21:00 Constitutional: Yes: Calm Cardiovascular: Yes: Regular Rate and Rhythm Respiratory: Yes: Diminished (at bases b/l poor insp effort) Gastrointestinal Inspection: Yes: Scars (vertical abdominopelvic surgical scar) . No: Distention ...Auscultate: Yes: Normoactive Bowel Sounds ...Palpate: Yes: Soft, Tenderness (mild TTP md abdomen) ...Percussion: Yes: Tympanitic ...Rectal Exam: Yes: Other (refused due to leg pain) Neurological: Yes: Alert Labs: CBC, BMP 05/21/19 07:54 05/21/19 07:54 INR, PTT INR 1.07 (0.83-1.09) 05/15/19 03:00 Problem List - Problems (1) Abdominal pain Assessment/Plan: With diarrhea: Diarrhea and pain seeme improved Advise: FUA to assess for ileus Stool fo c. diff given h/o d. ciff if diarrhea persists Heme evalution Will need colonoscopy when acute issues are resolved Code(s): R10.9 - UNSPECIFIED ABDOMINAL PAIN
--- NOTE | 2019-05-22 11:39 | PN ---
Progress Note, Physician History of Present Illness: pulmonary alert,comfortable,-sob,-congestion,+ diarrhea - Current Medication List Current Medications: Active Medications Albuterol Sulfate (Ventolin Hfa Inhaler -) 2 puff IH Q4H PRN PRN Reason: SHORT OF BREATH/WHEEZING Albuterol/Ipratropium (Duoneb -) 1 amp NEB RTID [facility] Last Admin: 05/22/19 07:40 Dose: 1 amp Alprazolam (Xanax -) 0.25 mg PO Q8H PRN PRN Reason: ANXIETY Last Admin: 05/22/19 10:21 Dose: 0.25 mg Apixaban (Eliquis -) 5 mg PO BID [facility] Last Admin: 05/22/19 10:21 Dose: 5 mg Bacitracin (Bacitracin -) 1 applic TP DAILY [facility] Last Admin: 05/22/19 10:22 Dose: Not Given Bismuth Subsalicylate (Pepto-Bismol -) 524 mg PO BID PRN PRN Reason: DIARRHEA Last Admin: 05/21/19 11:14 Dose: 524 mg Buspirone HCl (Buspar -) 10 mg PO BID [facility] Last Admin: 05/22/19 10:22 Dose: 10 mg Cholecalciferol (Vitamin D3 -) 1,000 unit PO DAILY [facility] Last Admin: 05/22/19 10:21 Dose: 1,000 unit Clotrimazole (Lotrimin 1% Cream -) 1 applic TP BID [facility] Last Admin: 05/22/19 10:25 Dose: 1 applic Docusate Sodium (Colace -) 100 mg PO TID [facility] Last Admin: 05/22/19 05:48 Dose: Not Given Emollient Ointment (Aquaphor -) 1 applic TP TID PRN PRN Reason: INCONTINENT DERMATITIS Last Admin: 05/22/19 10:25 Dose: 1 applic Ferrous Sulfate (Feosol -) 325 mg PO BID [facility] Last Admin: 05/22/19 10:21 Dose: 325 mg Hydromorphone HCl (Dilaudid -) 2 mg PO Q6H PRN PRN Reason: PAIN LEVEL 6-10 Last Admin: 05/22/19 05:47 Dose: 2 mg Insulin Aspart (Novolog Vial Sliding Scale -) 1 vial SQ ACHS [facility]; Protocol Last Admin: 05/22/19 06:08 Dose: Not Given Lactobacillus Acidophilus (Bacid -) 1 tab PO DAILY [facility] Last Admin: 05/22/19 10:21 Dose: 1 tab Levothyroxine Sodium (Synthroid -) 75 mcg PO DAILY@0600 [facility] Last Admin: 05/22/19 05:48 Dose: 75 mcg Loperamide HCl (Imodium -) 2 mg PO Q8H PRN PRN Reason: DIARRHEA Last Admin: 05/21/19 22:05 Dose: 2 mg Montelukast Sodium (Singulair -) 10 mg PO HS [facility] Last Admin: 05/21/19 21:59 Dose: 10 mg Multivit/Ca Carb/B Cmplx/FA/Prenat (Nephro-Héctor -) 1 tablet PO DAILY [facility] Last Admin: 05/22/19 10:22 Dose: 1 tablet Nystatin (Nystop Powder -) 1 applic TP DAILY [facility] Last Admin: 05/22/19 10:25 Dose: 1 applic Olanzapine (Zyprexa -) 2.5 mg PO HS [facility] Last Admin: 05/21/19 21:59 Dose: 2.5 mg Potassium Chloride (K-Dur -) 20 meq PO DAILY [facility] Last Admin: 05/22/19 10:21 Dose: 20 meq Ranitidine HCl (Zantac -) 150 mg PO DAILY [facility] Last Admin: 05/22/19 10:21 Dose: 150 mg Rosuvastatin Calcium (Crestor -) 10 mg PO DAILY [facility] Last Admin: 05/22/19 10:21 Dose: 10 mg Sodium Bicarbonate (Sodium Bicarbonate -) 650 mg PO TID [facility] Last Admin: 05/22/19 05:48 Dose: 650 mg Topiramate (Topamax -) 100 mg PO DAILY [facility] Last Admin: 05/22/19 10:21 Dose: 100 mg Venlafaxine HCl (Effexor Xr -) 75 mg PO DAILY [facility] Last Admin: 05/22/19 10:21 Dose: 75 mg Zolpidem Tartrate (Ambien -) 5 mg PO HS PRN PRN Reason: INSOMNIA Last Admin: 05/22/19 00:45 Dose: 5 mg - Objective Vital Signs: Vital Signs Temperature 99.2 F 05/22/19 05:53 Pulse Rate 110 H 05/22/19 05:53 Respiratory Rate 18 05/22/19 05:53 Blood Pressure 100/61 06/30/19 05:53 O2 Sat by Pulse Oximetry (%) 99 05/21/19 21:00 Constitutional: Yes: Well Nourished, Calm Eyes: Yes: WNL HENT: Yes: WNL Neck: Yes: Supple (trach) Cardiovascular: Yes: Pulse Irregular, S1, S2 Respiratory: Yes: Wheezes (few scattered wheezes) Gastrointestinal: Yes: Normal Bowel Sounds, Soft Extremities: Yes: Other (bilateral lower ext hard cast) Edema: No Labs: CBC, BMP Problem List - Problems (1) Bilateral closed proximal tibial fracture Code(s): S82.101A - UNSP FRACTURE OF UPPER END OF RIGHT TIBIA, INIT FOR CLOS FX ; S82.102A - UNSP FRACTURE OF UPPER END OF LEFT TIBIA, INIT FOR CLOS FX (2) Tibial plateau fracture Code(s): S82.143A - DISPLACED BICONDYLAR FRACTURE OF UNSP TIBIA, INIT (3) Afib Code(s): I48.91 - UNSPECIFIED ATRIAL FIBRILLATION (4) Anemia Code(s): D64.9 - ANEMIA, UNSPECIFIED (5) Chronic respiratory failure Code(s): J96.10 - CHRONIC RESPIRATORY FAILURE, UNSP W HYPOXIA OR HYPERCAPNIA (6) Diabetes Code(s): E11.9 - TYPE 2 DIABETES MELLITUS WITHOUT COMPLICATIONS (7) Hypothyroid Code(s): E03.9 - HYPOTHYROIDISM, UNSPECIFIED Qualifiers: (8) Tracheostomy in place Code(s): Z93.0 - TRACHEOSTOMY STATUS (9) Chronic respiratory failure with hypoxia Code(s): J96.11 - CHRONIC RESPIRATORY FAILURE WITH HYPOXIA Assessment/Plan A/P s/p Fall Bilateral Proximal Tibial/Fibula Fractures COPD Chronic Hypoxic Respiratory Failure Atrial Fibrillation HTN Hyperlipidemia h/o Uterine Ca Anemia - pain control - inhaled bronchodilators - O2 to keep Spo2 >90% - DVT prophylaxis DR RUFFIN
--- NOTE | 2019-05-22 11:40 | PN ---
Progress Note, Physician - Current Medication List Current Medications: Active Medications Albuterol Sulfate (Ventolin Hfa Inhaler -) 2 puff IH Q4H PRN PRN Reason: SHORT OF BREATH/WHEEZING Albuterol/Ipratropium (Duoneb -) 1 amp NEB RTID [facility] Last Admin: 05/22/19 07:40 Dose: 1 amp Alprazolam (Xanax -) 0.25 mg PO Q8H PRN PRN Reason: ANXIETY Last Admin: 05/22/19 10:21 Dose: 0.25 mg Apixaban (Eliquis -) 5 mg PO BID [facility] Last Admin: 05/22/19 10:21 Dose: 5 mg Bacitracin (Bacitracin -) 1 applic TP DAILY [facility] Last Admin: 05/22/19 10:22 Dose: Not Given Bismuth Subsalicylate (Pepto-Bismol -) 524 mg PO BID PRN PRN Reason: DIARRHEA Last Admin: 05/21/19 11:14 Dose: 524 mg Buspirone HCl (Buspar -) 10 mg PO BID [facility] Last Admin: 05/22/19 10:22 Dose: 10 mg Cholecalciferol (Vitamin D3 -) 1,000 unit PO DAILY [facility] Last Admin: 05/22/19 10:21 Dose: 1,000 unit Clotrimazole (Lotrimin 1% Cream -) 1 applic TP BID [facility] Last Admin: 05/22/19 10:25 Dose: 1 applic Docusate Sodium (Colace -) 100 mg PO TID [facility] Last Admin: 05/22/19 05:48 Dose: Not Given Emollient Ointment (Aquaphor -) 1 applic TP TID PRN PRN Reason: INCONTINENT DERMATITIS Last Admin: 05/22/19 10:25 Dose: 1 applic Ferrous Sulfate (Feosol -) 325 mg PO BID [facility] Last Admin: 05/22/19 10:21 Dose: 325 mg Hydromorphone HCl (Dilaudid -) 2 mg PO Q6H PRN PRN Reason: PAIN LEVEL 6-10 Last Admin: 05/22/19 05:47 Dose: 2 mg Insulin Aspart (Novolog Vial Sliding Scale -) 1 vial SQ ACHS [facility]; Protocol Last Admin: 05/22/19 11:39 Dose: Not Given Lactobacillus Acidophilus (Bacid -) 1 tab PO DAILY [facility] Last Admin: 05/22/19 10:21 Dose: 1 tab Levothyroxine Sodium (Synthroid -) 75 mcg PO DAILY@0600 [facility] Last Admin: 05/22/19 05:48 Dose: 75 mcg Loperamide HCl (Imodium -) 2 mg PO Q8H PRN PRN Reason: DIARRHEA Last Admin: 05/21/19 22:05 Dose: 2 mg Montelukast Sodium (Singulair -) 10 mg PO HS [facility] Last Admin: 05/21/19 21:59 Dose: 10 mg Multivit/Ca Carb/B Cmplx/FA/Prenat (Nephro-Héctor -) 1 tablet PO DAILY [facility] Last Admin: 05/22/19 10:22 Dose: 1 tablet Nystatin (Nystop Powder -) 1 applic TP DAILY [facility] Last Admin: 05/22/19 10:25 Dose: 1 applic Olanzapine (Zyprexa -) 2.5 mg PO HS [facility] Last Admin: 05/21/19 21:59 Dose: 2.5 mg Potassium Chloride (K-Dur -) 20 meq PO DAILY [facility] Last Admin: 05/22/19 10:21 Dose: 20 meq Ranitidine HCl (Zantac -) 150 mg PO DAILY [facility] Last Admin: 05/22/19 10:21 Dose: 150 mg Rosuvastatin Calcium (Crestor -) 10 mg PO DAILY [facility] Last Admin: 05/22/19 10:21 Dose: 10 mg Sodium Bicarbonate (Sodium Bicarbonate -) 650 mg PO TID [facility] Last Admin: 05/22/19 05:48 Dose: 650 mg Topiramate (Topamax -) 100 mg PO DAILY [facility] Last Admin: 05/22/19 10:21 Dose: 100 mg Venlafaxine HCl (Effexor Xr -) 75 mg PO DAILY [facility] Last Admin: 05/22/19 10:21 Dose: 75 mg Zolpidem Tartrate (Ambien -) 5 mg PO HS PRN PRN Reason: INSOMNIA Last Admin: 05/22/19 00:45 Dose: 5 mg - Objective Vital Signs: Vital Signs Temperature 99.2 F 05/22/19 05:53 Pulse Rate 110 H 05/22/19 05:53 Respiratory Rate 18 05/22/19 05:53 Blood Pressure 100/61 05/22/19 05:53 O2 Sat by Pulse Oximetry (%) 99 05/21/19 21:00 Cardiovascular: Yes: S1, S2 Respiratory: Yes: Regular, CTA Bilaterally Gastrointestinal: Yes: Normal Bowel Sounds, Soft Labs: CBC, BMP 05/21/19 07:54 05/21/19 07:54 INR, PTT INR 1.07 (0.83-1.09) 05/15/19 03:00 Assessment/Plan - Problems (1) Bilateral closed proximal tibial fracture Assessment/Plan: -Ortho consult noted -pain control -Xray shows acute fracture proximal one third tibial diametaphysis, cannot exclude injury in tibial plateau Code(s): S82.101A - UNSP FRACTURE OF UPPER END OF RIGHT TIBIA, INIT FOR CLOS FX ; S82.102A - UNSP FRACTURE OF UPPER END OF LEFT TIBIA, INIT FOR CLOS FX (2) Afib Assessment/Plan: -Eliquis on hold due to possible surgery -will start on Heparin drip Code(s): I48.91 - UNSPECIFIED ATRIAL FIBRILLATION (3) Chronic respiratory failure Assessment/Plan: -O2 via trach collar -bronchodilators -montelukast -keep SpO2 >90% Code(s): J96.10 - CHRONIC RESPIRATORY FAILURE, UNSP W HYPOXIA OR HYPERCAPNIA (4) Diabetes Assessment/Plan: -BGM ACHS -ISS Code(s): E11.9 - TYPE 2 DIABETES MELLITUS WITHOUT COMPLICATIONS (5) Hypothyroid Assessment/Plan: -Levothyroxine Code(s): E03.9 - HYPOTHYROIDISM, UNSPECIFIED Qualifiers: (6) COPD (chronic obstructive pulmonary disease) Assessment/Plan: -Montelukast -O2 via trach collar -keep SpO2 >90% Code(s): J44.9 - CHRONIC OBSTRUCTIVE PULMONARY DISEASE, UNSPECIFIED (7) GERD (gastroesophageal reflux disease) Assessment/Plan: -Rantidine Code(s): K21.9 - GASTRO-ESOPHAGEAL REFLUX DISEASE WITHOUT ESOPHAGITIS (8) Hyperlipidemia Assessment/Plan: -Crestor Code(s): E78.5 - HYPERLIPIDEMIA, UNSPECIFIED Qualifiers:
--- NOTE | 2019-05-22 11:56 | PN ---
Progress Note (short form) - Note Progress Note: per nurse patient does not like sitting upright because of chronic pain. Changed to prtable KUB. Pending findings may need CT scan of A/P with contrast Problem List - Problems (1) Abdominal pain Code(s): R10.9 - UNSPECIFIED ABDOMINAL PAIN
--- NOTE | 2019-05-22 17:12 | PN ---
Progress Note (short form) - Note Progress Note: AXR revealed some dilated colon loops. Will order CT scan A/P with contrast for further evaluation Problem List - Problems (1) Abdominal pain Code(s): R10.9 - UNSPECIFIED ABDOMINAL PAIN
[2019-05-22 21:42] LABS: BASO % 0.5 % (0-2.0); EOS % 5.3 % (0-4.5); HEMATOCRIT 26.9 % (32.4-45.2); HEMOGLOBIN 8.9 GM/dL (10.7-15.3); MCH 30.8 pg (25.7-33.7); MCHC 33.1 g/dl (32.0-36.0); MEAN PLT VOLUME 8.7 fl (7.5-11.1); MONO % 9.7 % (3.8-10.2); NEUT % 71.5 % (42.8-82.8); RBC 2.89 M/mm3 (3.60-5.2); RDW 15.8 % (11.6-15.6); WHITE BLOOD COUNT 7.6 K/mm3 (4.0-10.0)
[2019-05-22] MEDS: OLANZapine 2.5 MG TABLET PO SCH (21:57)
[2019-05-22] MEDS: MONTELUKAST NA 10 MG TABLET PO SCH (21:57)
[2019-05-22 22:03] LABS: ALBUMIN 2.6 g/dl (3.4-5.0); BILIRUBIN,TOTAL 0.7 mg/dL (0.2-1); BLOOD UREA NITROGEN 11.8 mg/dL (7-18); CALCIUM 8.1 mg/dL (8.5-10.1); CREATININE 0.8 mg/dL (0.55-1.3); POTASSIUM 4.2 mmol/L (3.5-5.1); TOT PROT 5.9 g/dl (6.4-8.2)
[2019-05-22 22:07] LABS: PLATELET COUNT 263 K/MM3 (134-434)
[2019-05-23] MEDS: HYDROmorphone HCL 2 MG TABLET PO PRN ×4 (00:30→18:30)
--- NOTE | 2019-05-23 06:27 | HOSP ---
Subjective - Review of Symptoms Events since last encounter: patient noted with fever 100.4 then rechecked by nurse again noted with 100.8, notified COMPLIANCE DIRECTOR upon exam patient denies sob/cp/frequency/ urgency/dysuria. during auscultation noted with right side wheezing remain on montelukast and nebulizer for COPD, spo2 is wnl. will ordere tylenol and get CXR, monitor vitals closely for acute changes. Patient also pending stool O&P, and CT abdomen GI following. Physical Examination Vital Signs: Vital Signs Temperature 98.7 F 05/22/19 21:34 Pulse Rate 116 H 05/22/19 21:34 Respiratory Rate 20 05/22/19 21:34 Blood Pressure 102/58 L 05/22/19 21:34 O2 Sat by Pulse Oximetry (%) 99 05/21/19 21:00 Constitutional: Yes: Well Nourished, Calm Eyes: Yes: Conjunctiva Clear, EOM Intact HENT: Yes: Atraumatic, Normocephalic Neck: Yes: Supple, Trachea Midline Cardiovascular: Yes: Regular Rate and Rhythm Respiratory: Yes: Regular, Wheezes Gastrointestinal: Yes: Normal Bowel Sounds, Soft Musculoskeletal: Yes: Other (b/l cast LE in place) Neurological: Yes: Alert, Oriented Labs: CBC, BMP 05/22/19 21:05 05/22/19 21:05 Hospitalist Encounter Assessment: A/P s/p Fall Bilateral Proximal Tibial/Fibula Fractures COPD Chronic Hypoxic Respiratory Failure - pain control - inhaled bronchodilators - O2 to keep Spo2 >90% - Tylenol for fever - follow up cxr
[2019-05-23] MEDS: LEVOTHYROXINE NA 75 MCG TABLET (FP) PO SCH (06:29)
[2019-05-23] MEDS: INSULIN SLIDING SCALE (NOVOLOG) 1 VIAL SQ SCH ×4 (06:29→21:17)
[2019-05-23] MEDS: SODIUM BICARBONATE 650 MG TABLET PO SCH ×3 (06:29→21:15)
[2019-05-23] MEDS: DOCUSATE SODIUM 100 MG CAPSULE (FP) PO SCH ×3 (06:30→21:17)
[2019-05-23] MEDS: ACETAMINOPHEN 325 MG TABLET (FP) PO PRN (06:58)
[2019-05-23] MEDS: ALBUTEROL SO4 2.5/IPRATROPIUM 0.5 INH SOL 3 ML VIAL.NEB. NEB SCH ×3 (07:30→20:32)
--- NOTE | 2019-05-23 07:55 | PN ---
Progress Note, Physician Chief Complaint: AWAKE ALERT FEVER DOCUMENTED 100.3 MONITORING LABS/CULTURES COMFORTABLE - Current Medication List Current Medications: Active Medications Acetaminophen (Tylenol -) 650 mg PO Q6H PRN PRN Reason: FEVER Last Admin: 05/23/19 06:58 Dose: 650 mg Albuterol Sulfate (Ventolin Hfa Inhaler -) 2 puff IH Q4H PRN PRN Reason: SHORT OF BREATH/WHEEZING Albuterol/Ipratropium (Duoneb -) 1 amp NEB RTID [facility] Last Admin: 05/22/19 19:55 Dose: 1 amp Alprazolam (Xanax -) 0.25 mg PO Q8H PRN PRN Reason: ANXIETY Last Admin: 05/22/19 21:57 Dose: 0.25 mg Apixaban (Eliquis -) 5 mg PO BID [facility] Last Admin: 05/22/19 21:57 Dose: 5 mg Bacitracin (Bacitracin -) 1 applic TP DAILY [facility] Last Admin: 05/22/19 10:22 Dose: Not Given Bismuth Subsalicylate (Pepto-Bismol -) 524 mg PO BID PRN PRN Reason: DIARRHEA Last Admin: 05/21/19 11:14 Dose: 524 mg Buspirone HCl (Buspar -) 10 mg PO BID [facility] Last Admin: 05/22/19 21:57 Dose: 10 mg Cholecalciferol (Vitamin D3 -) 1,000 unit PO DAILY [facility] Last Admin: 05/22/19 10:21 Dose: 1,000 unit Clotrimazole (Lotrimin 1% Cream -) 1 applic TP BID [facility] Last Admin: 05/22/19 21:58 Dose: 1 applic Docusate Sodium (Colace -) 100 mg PO TID [facility] Last Admin: 05/23/19 06:30 Dose: Not Given Emollient Ointment (Aquaphor -) 1 applic TP TID PRN PRN Reason: INCONTINENT DERMATITIS Last Admin: 05/22/19 10:25 Dose: 1 applic Ferrous Sulfate (Feosol -) 325 mg PO BID [facility] Last Admin: 05/22/19 21:57 Dose: 325 mg Hydromorphone HCl (Dilaudid -) 2 mg PO Q6H PRN PRN Reason: PAIN LEVEL 6-10 Last Admin: 05/23/19 06:29 Dose: 2 mg Insulin Aspart (Novolog Vial Sliding Scale -) 1 vial SQ ACHS [facility]; Protocol Last Admin: 05/23/19 06:29 Dose: Not Given Lactobacillus Acidophilus (Bacid -) 1 tab PO DAILY [facility] Last Admin: 05/22/19 10:21 Dose: 1 tab Levothyroxine Sodium (Synthroid -) 75 mcg PO DAILY@0600 [facility] Last Admin: 05/23/19 06:29 Dose: 75 mcg Loperamide HCl (Imodium -) 2 mg PO Q8H PRN PRN Reason: DIARRHEA Last Admin: 05/21/19 22:05 Dose: 2 mg Montelukast Sodium (Singulair -) 10 mg PO HS [facility] Last Admin: 05/22/19 21:57 Dose: 10 mg Multivit/Ca Carb/B Cmplx/FA/Prenat (Nephro-Héctor -) 1 tablet PO DAILY [facility] Last Admin: 05/22/19 10:22 Dose: 1 tablet Nystatin (Nystop Powder -) 1 applic TP DAILY [facility] Last Admin: 05/22/19 10:25 Dose: 1 applic Olanzapine (Zyprexa -) 2.5 mg PO HS [facility] Last Admin: 05/22/19 21:57 Dose: 2.5 mg Potassium Chloride (K-Dur -) 20 meq PO DAILY [facility] Last Admin: 05/22/19 10:21 Dose: 20 meq Ranitidine HCl (Zantac -) 150 mg PO DAILY [facility] Last Admin: 05/22/19 10:21 Dose: 150 mg Rosuvastatin Calcium (Crestor -) 10 mg PO DAILY [facility] Last Admin: 05/22/19 10:21 Dose: 10 mg Sodium Bicarbonate (Sodium Bicarbonate -) 650 mg PO TID [facility] Last Admin: 05/23/19 06:29 Dose: 650 mg Topiramate (Topamax -) 100 mg PO DAILY [facility] Last Admin: 05/22/19 10:21 Dose: 100 mg Venlafaxine HCl (Effexor Xr -) 75 mg PO DAILY [facility] Last Admin: 05/22/19 10:21 Dose: 75 mg Zolpidem Tartrate (Ambien -) 5 mg PO HS PRN PRN Reason: INSOMNIA Last Admin: 05/22/19 21:57 Dose: 5 mg - Objective Vital Signs: Vital Signs Temperature 100.8 F H 05/23/19 06:56 Pulse Rate 88 05/23/19 06:56 Respiratory Rate 20 05/23/19 06:56 Blood Pressure 112/60 05/23/19 06:56 O2 Sat by Pulse Oximetry (%) 99 05/21/19 21:00 Constitutional: Yes: No Distress Eyes: Yes: WNL HENT: Yes: WNL Neck: Yes: WNL Cardiovascular: Yes: Regular Rate and Rhythm Respiratory: Yes: CTA Bilaterally, Other (TRACHCOLLAR) Gastrointestinal: Yes: Soft Genitourinary: Yes: Incontinence Musculoskeletal: Yes: Muscle Weakness Extremities: Yes: Other (CAST B/L LEGS) Integumentary: Yes: Bruising Wound/Incision: Yes: Dressing Dry and Intact Neurological: Yes: Other Psychiatric: Yes: Other Labs: CBC, BMP 05/22/19 21:05 05/22/19 21:05 INR, PTT INR 1.07 (0.83-1.09) 05/15/19 03:00 Problem List - Problems (1) Bilateral closed proximal tibial fracture Code(s): S82.101A - UNSP FRACTURE OF UPPER END OF RIGHT TIBIA, INIT FOR CLOS FX ; S82.102A - UNSP FRACTURE OF UPPER END OF LEFT TIBIA, INIT FOR CLOS FX (2) Hx of chcf use of blood thinners Code(s): Z92.29 - PERSONAL HISTORY OF OTHER DRUG THERAPY (3) Acute and chronic respiratory failure with hypoxia Code(s): J96.21 - ACUTE AND CHRONIC RESPIRATORY FAILURE WITH HYPOXIA (4) Acute wheezy bronchitis Code(s): J20.9 - ACUTE BRONCHITIS, UNSPECIFIED (5) Afib Code(s): I48.91 - UNSPECIFIED ATRIAL FIBRILLATION (6) Bacteremia due to methicillin resistant Staphylococcus aureus Code(s): R78.81 - BACTEREMIA (7) Bipolar 1 disorder Code(s): F31.9 - BIPOLAR DISORDER, UNSPECIFIED (8) Diabetes Code(s): E11.9 - TYPE 2 DIABETES MELLITUS WITHOUT COMPLICATIONS (9) Anxiety Code(s): F41.9 - ANXIETY DISORDER, UNSPECIFIED (10) Hemarthrosis Code(s): M25.00 - HEMARTHROSIS, UNSPECIFIED JOINT Assessment/Plan MONITOR LABS AND CULTURES FOR FEVERS WILL CHECK CBC AND K+ TODAY AND DC PLANNING FOR THIS AFTERNOON PAIN CONTROL S/P TRANSFUSION PRBC H/H STABLE IVC FILTER PLACED ON VIT D FOR OSTEOPOROSIS, OUTPATIENT WILL NEED IV RECLAST ONCE PER YEAR FOR OSTEOPOROSIS [place] DC PLANNING
[2019-05-23] MEDS: LACTOBACILLUS ACIDOPHILUS 1 TABLET PO SCH (10:16)
[2019-05-23] MEDS: VENLAFAXINE HCL 75 MG E.R. CAPSULES (FP) PO SCH (10:16)
[2019-05-23] MEDS: TOPIRAMATE 100 MG TABLET PO SCH (10:16)
[2019-05-23] MEDS: RANITIDINE HCL 150 MG TABLET (FP) PO SCH (10:17)
[2019-05-23] MEDS: VITAMIN B COMP W-C 1 EA TABLET PO SCH (10:17)
[2019-05-23] MEDS: ROSUVASTATIN CA 10 MG TABLET (FP) PO SCH (10:17)
[2019-05-23] MEDS: FERROUS SO4 325 MG TABLET (FP) PO SCH ×2 (10:17→21:15)
[2019-05-23] MEDS: APIXABAN 5 MG TABLET PO SCH ×2 (10:17→21:15)
[2019-05-23] MEDS: CHOLECALCIFEROL (VIT D3) 1,000 UNIT (25 MCG) TABLET PO SCH (10:17)
[2019-05-23] MEDS: POTASSIUM CHLORIDE TABS 20 MEQ TABLET.ER (FP) PO SCH (10:17)
--- NOTE | 2019-05-23 10:17 | PN ---
Progress Note (short form) - Note Progress Note: PULMONARY Fevers overnight now with cough. Last CXR may have left sided infiltrate. Vital Signs Period Temp Pulse Resp BP Sys/Dan Pulse Ox Last 24 Hr 98.7 F-100.8 F 88-116 20-22 100-112/58-60 99 Gen: NAD at rest Heart: RRR Lung: scattered rhonchi Abd: soft, nontender Ext: + edema CBC, BMP 05/22/19 21:05 05/22/19 21:05 Active Medications Acetaminophen (Tylenol -) 650 mg PO Q6H PRN PRN Reason: FEVER Last Admin: 05/23/19 06:58 Dose: 650 mg Albuterol Sulfate (Ventolin Hfa Inhaler -) 2 puff IH Q4H PRN PRN Reason: SHORT OF BREATH/WHEEZING Albuterol/Ipratropium (Duoneb -) 1 amp NEB RTID [facility] Last Admin: 05/23/19 07:30 Dose: 1 amp Alprazolam (Xanax -) 0.25 mg PO Q8H PRN PRN Reason: ANXIETY Last Admin: 05/22/19 21:57 Dose: 0.25 mg Apixaban (Eliquis -) 5 mg PO BID [facility] Last Admin: 05/22/19 21:57 Dose: 5 mg Bacitracin (Bacitracin -) 1 applic TP DAILY [facility] Last Admin: 05/22/19 10:22 Dose: Not Given Bismuth Subsalicylate (Pepto-Bismol -) 524 mg PO BID PRN PRN Reason: DIARRHEA Last Admin: 05/21/19 11:14 Dose: 524 mg Buspirone HCl (Buspar -) 10 mg PO BID [facility] Last Admin: 05/22/19 21:57 Dose: 10 mg Cholecalciferol (Vitamin D3 -) 1,000 unit PO DAILY [facility] Last Admin: 05/22/19 10:21 Dose: 1,000 unit Clotrimazole (Lotrimin 1% Cream -) 1 applic TP BID [facility] Last Admin: 05/22/19 21:58 Dose: 1 applic Docusate Sodium (Colace -) 100 mg PO TID [facility] Last Admin: 05/23/19 06:30 Dose: Not Given Emollient Ointment (Aquaphor -) 1 applic TP TID PRN PRN Reason: INCONTINENT DERMATITIS Last Admin: 05/22/19 10:25 Dose: 1 applic Ferrous Sulfate (Feosol -) 325 mg PO BID [facility] Last Admin: 05/22/19 21:57 Dose: 325 mg Hydromorphone HCl (Dilaudid -) 2 mg PO Q6H PRN PRN Reason: PAIN LEVEL 6-10 Last Admin: 05/23/19 06:29 Dose: 2 mg Insulin Aspart (Novolog Vial Sliding Scale -) 1 vial SQ ACHS [facility]; Protocol Last Admin: 05/23/19 06:29 Dose: Not Given Lactobacillus Acidophilus (Bacid -) 1 tab PO DAILY [facility] Last Admin: 05/22/19 10:21 Dose: 1 tab Levothyroxine Sodium (Synthroid -) 75 mcg PO DAILY@0600 [facility] Last Admin: 05/23/19 06:29 Dose: 75 mcg Loperamide HCl (Imodium -) 2 mg PO Q8H PRN PRN Reason: DIARRHEA Last Admin: 05/21/19 22:05 Dose: 2 mg Montelukast Sodium (Singulair -) 10 mg PO HS [facility] Last Admin: 05/22/19 21:57 Dose: 10 mg Multivit/Ca Carb/B Cmplx/FA/Prenat (Nephro-Héctor -) 1 tablet PO DAILY [facility] Last Admin: 05/22/19 10:22 Dose: 1 tablet Nystatin (Nystop Powder -) 1 applic TP DAILY [facility] Last Admin: 05/22/19 10:25 Dose: 1 applic Olanzapine (Zyprexa -) 2.5 mg PO HS [facility] Last Admin: 05/22/19 21:57 Dose: 2.5 mg Potassium Chloride (K-Dur -) 20 meq PO DAILY [facility] Last Admin: 05/22/19 10:21 Dose: 20 meq Ranitidine HCl (Zantac -) 150 mg PO DAILY [facility] Last Admin: 05/22/19 10:21 Dose: 150 mg Rosuvastatin Calcium (Crestor -) 10 mg PO DAILY [facility] Last Admin: 05/22/19 10:21 Dose: 10 mg Sodium Bicarbonate (Sodium Bicarbonate -) 650 mg PO TID [facility] Last Admin: 05/23/19 06:29 Dose: 650 mg Topiramate (Topamax -) 100 mg PO DAILY [facility] Last Admin: 05/22/19 10:21 Dose: 100 mg Venlafaxine HCl (Effexor Xr -) 75 mg PO DAILY [facility] Last Admin: 05/22/19 10:21 Dose: 75 mg Zolpidem Tartrate (Ambien -) 5 mg PO HS PRN PRN Reason: INSOMNIA Last Admin: 05/22/19 21:57 Dose: 5 mg A/P s/p Fall Bilateral Proximal Tibial/Fibula Fractures r/o Pneumonia COPD Chronic Hypoxic Respiratory Failure Atrial Fibrillation HTN Hyperlipidemia h/o Uterine Ca Anemia - will start empiric antibiotics - pain control - inhaled bronchodilators - O2 to keep Spo2 >90% - DVT prophylaxis
[2019-05-23] MEDS: CLOTRIMAZOLE 1% CREAM 15 GM TUBE TP SCH ×2 (10:19→21:17)
[2019-05-23] MEDS: NYSTATIN POWDER 100,000 UNITS/GM - 15 GM TOPICAL POWDER TP SCH (10:20)
[2019-05-23] MEDS: BACITRACIN 15 GM TUBE TOPICAL OINTMENT TP SCH (10:20)
[2019-05-23] MEDS ORDERED: CEFTRIAXONE 1 GM in DEXTROSE 5%-WATER - 50 ML IVPB SCH (10:30)
[2019-05-23] MEDS: ALPRAZolam 0.25 MG TABLET PO PRN ×2 (10:55→20:38)
[2019-05-23] MEDS: busPIRone HCL 10 MG TABLET (FP) PO SCH ×2 (10:59→21:16)
--- NOTE | 2019-05-23 16:23 | PN.GI ---
GI Progress Note Subjective: GI NOte: Feeling better. Abdominal pain and diarrhea have resolved. Wants more to eat. Refused the CT scan. - Objective Vital Signs: Vital Signs Temperature 98.1 F 05/23/19 10:00 Pulse Rate 92 H 05/23/19 10:00 Respiratory Rate 20 05/23/19 10:00 Blood Pressure 110/62 05/23/19 10:00 O2 Sat by Pulse Oximetry (%) 99 05/23/19 08:07 Laboratory Tests 05/19/19 05/22/19 05/22/19 05:35 21:05 21:05 WBC 7.6 Ferritin 126.8 Total Bilirubin 0.7 AST 24 ALT 30 Alkaline Phosphatase 111 Constitutional: Anxious Gastrointestinal Inspection: Yes: Distention ...Auscultate: Yes: Hypoactive Bowel Sounds ...Palpate: Yes: Soft, Other (nontender) Labs: CBC, BMP 05/22/19 21:05 05/22/19 21:05 INR, PTT INR 1.07 (0.83-1.09) 05/15/19 03:00 Assessment/Plan Impression: - Chronic abdominal pain has resolved . Wants more to eat. Distension may be aerophagia related compunded by fracture related sedentary state - Diarrhea resolved. Given chronic constipation and distension this may have been paradoxical. Plan: -- Diet already advanced -- C diff already ordered Problem List - Problems (1) Abdominal pain Assessment/Plan: Abdominal pain and diarrhea resolved. Bowel distension may be aerophagia. Agree with diet advancement Code(s): R10.9 - UNSPECIFIED ABDOMINAL PAIN (2) Diarrhea Code(s): R19.7 - DIARRHEA, UNSPECIFIED (3) Anemia Code(s): D64.9 - ANEMIA, UNSPECIFIED (4) Sleep apnea Code(s): G47.30 - SLEEP APNEA, UNSPECIFIED (5) Afib Code(s): I48.91 - UNSPECIFIED ATRIAL FIBRILLATION (6) Bipolar 2 disorder Code(s): F31.81 - BIPOLAR II DISORDER (7) Chronic respiratory failure with hypoxia Code(s): J96.11 - CHRONIC RESPIRATORY FAILURE WITH HYPOXIA (8) Diabetes mellitus, insulin dependent (IDDM), uncontrolled Code(s): E10.65 - TYPE 1 DIABETES MELLITUS WITH HYPERGLYCEMIA Qualifiers: Glycemic state: with hyperglycemia Qualified Code(s): E10.65 - Type 1 diabetes mellitus with hyperglycemia (9) Drug abuse and dependence Code(s): F19.20 - OTHER PSYCHOACTIVE SUBSTANCE DEPENDENCE, UNCOMPLICATED (10) HTN (hypertension) Code(s): I10 - ESSENTIAL (PRIMARY) HYPERTENSION Qualifiers: (11) Hyperlipidemia Code(s): E78.5 - HYPERLIPIDEMIA, UNSPECIFIED Qualifiers: (12) Paroxysmal atrial fibrillation Code(s): I48.0 - PAROXYSMAL ATRIAL FIBRILLATION (13) History of Clostridioides difficile colitis Code(s): Z86.19 - PERSONAL HISTORY OF OTHER INFECTIOUS AND PARASITIC DISEASES (14) Fatty liver Code(s): K76.0 - FATTY (CHANGE OF) LIVER, NOT ELSEWHERE CLASSIFIED (15) Constipation Code(s): K59.00 - CONSTIPATION, UNSPECIFIED Qualifiers: Constipation type: unspecified constipation type Qualified Code(s): K59.00 - Constipation, unspecified
--- NOTE | 2019-05-23 21:09 | PN ---
Progress Note (short form) - Note Progress Note: Patien seen and examined Denies any complaints AFVSS Cor: RSR, No murmurs, No gallops Lungs: Clear to P&A Abd: Soft, Normal bowel sounds, No organomegaly Ext:b/l casts Labs/Meds reviewed A/P s/p Fall Bilateral Proximal Tibial/Fibula Fractures COPD Chronic Hypoxic Respiratory Failure Atrial Fibrillation HTN Hyperlipidemia h/o Uterine Ca Anemia Iron studies --nl saturation/ferritin
[2019-05-23] MEDS: MONTELUKAST NA 10 MG TABLET PO SCH (21:15)
[2019-05-23] MEDS: OLANZapine 2.5 MG TABLET PO SCH (21:15)
[2019-05-23] MEDS: ZOLPIDEM TARTRATE 5 MG TABLET PO PRN (21:15)
[2019-05-24] MEDS: HYDROmorphone HCL 2 MG TABLET PO PRN ×4 (00:24→18:55)
[2019-05-24] MEDS: DOCUSATE SODIUM 100 MG CAPSULE (FP) PO SCH ×3 (06:48→22:12)
[2019-05-24] MEDS: LEVOTHYROXINE NA 75 MCG TABLET (FP) PO SCH (07:00)
[2019-05-24] MEDS: SODIUM BICARBONATE 650 MG TABLET PO SCH ×3 (07:00→22:13)
[2019-05-24] MEDS: INSULIN SLIDING SCALE (NOVOLOG) 1 VIAL SQ SCH ×4 (07:00→22:12)
[2019-05-24 07:38] LABS: HEMATOCRIT 27.2 % (32.4-45.2); MCH 30.6 pg (25.7-33.7); MCHC 33.2 g/dl (32.0-36.0); MEAN CELL VOLUME 92.3 fl (80-96); MEAN PLT VOLUME 8.8 fl (7.5-11.1); PLATELET COUNT 305 K/MM3 (134-434); RBC 2.95 M/mm3 (3.60-5.2); RDW 15.2 % (11.6-15.6); WHITE BLOOD COUNT 7.7 K/mm3 (4.0-10.0)
[2019-05-24 07:58] LABS: BLOOD UREA NITROGEN 12.3 mg/dL (7-18); CALCIUM 8.4 mg/dL (8.5-10.1); CREATININE 0.9 mg/dL (0.55-1.3); POTASSIUM 4.1 mmol/L (3.5-5.1)
[2019-05-24] MEDS: ALBUTEROL SO4 2.5/IPRATROPIUM 0.5 INH SOL 3 ML VIAL.NEB. NEB SCH ×3 (08:40→20:35)
--- NOTE | 2019-05-24 09:05 | PN ---
Progress Note, Physician Chief Complaint: AWAKE ALERT COMFORTABLE DENIES CHEST PAIN OR SOB DIARRHEA HAS STOPPED FEVER DOCUMENTED OVERNIGHT - Current Medication List Current Medications: Active Medications Acetaminophen (Tylenol -) 650 mg PO Q6H PRN PRN Reason: FEVER Last Admin: 05/23/19 06:58 Dose: 650 mg Albuterol Sulfate (Ventolin Hfa Inhaler -) 2 puff IH Q4H PRN PRN Reason: SHORT OF BREATH/WHEEZING Albuterol/Ipratropium (Duoneb -) 1 amp NEB RTID [facility] Last Admin: 05/23/19 20:32 Dose: 1 amp Alprazolam (Xanax -) 0.25 mg PO Q8H PRN PRN Reason: ANXIETY Last Admin: 05/23/19 20:38 Dose: 0.25 mg Apixaban (Eliquis -) 5 mg PO BID [facility] Last Admin: 05/23/19 21:15 Dose: 5 mg Bacitracin (Bacitracin -) 1 applic TP DAILY [facility] Last Admin: 05/23/19 10:20 Dose: Not Given Bismuth Subsalicylate (Pepto-Bismol -) 524 mg PO BID PRN PRN Reason: DIARRHEA Last Admin: 05/21/19 11:14 Dose: 524 mg Buspirone HCl (Buspar -) 10 mg PO BID [facility] Last Admin: 05/23/19 21:16 Dose: 10 mg Cholecalciferol (Vitamin D3 -) 1,000 unit PO DAILY [facility] Last Admin: 05/23/19 10:17 Dose: 1,000 unit Clotrimazole (Lotrimin 1% Cream -) 1 applic TP BID [facility] Last Admin: 05/23/19 21:17 Dose: 1 applic Docusate Sodium (Colace -) 100 mg PO TID [facility] Last Admin: 05/24/19 06:48 Dose: Not Given Emollient Ointment (Aquaphor -) 1 applic TP TID PRN PRN Reason: INCONTINENT DERMATITIS Last Admin: 05/22/19 10:25 Dose: 1 applic Ferrous Sulfate (Feosol -) 325 mg PO BID [facility] Last Admin: 05/23/19 21:15 Dose: 325 mg Hydromorphone HCl (Dilaudid -) 2 mg PO Q6H PRN PRN Reason: PAIN LEVEL 6-10 Last Admin: 05/24/19 07:01 Dose: 2 mg Insulin Aspart (Novolog Vial Sliding Scale -) 1 vial SQ ACHS [facility]; Protocol Last Admin: 05/24/19 07:00 Dose: Not Given Lactobacillus Acidophilus (Bacid -) 1 tab PO DAILY [facility] Last Admin: 05/23/19 10:16 Dose: 1 tab Levofloxacin (Levaquin -) 500 mg PO DAILY [facility] Stop: 05/29/19 10:01 Last Admin: 05/23/19 12:39 Dose: 500 mg Levothyroxine Sodium (Synthroid -) 75 mcg PO DAILY@0600 [facility] Last Admin: 05/24/19 07:00 Dose: 75 mcg Loperamide HCl (Imodium -) 2 mg PO Q8H PRN PRN Reason: DIARRHEA Last Admin: 05/21/19 22:05 Dose: 2 mg Montelukast Sodium (Singulair -) 10 mg PO HS [facility] Last Admin: 05/23/19 21:15 Dose: 10 mg Multivit/Ca Carb/B Cmplx/FA/Prenat (Nephro-Héctor -) 1 tablet PO DAILY [facility] Last Admin: 05/23/19 10:17 Dose: 1 tablet Nystatin (Nystop Powder -) 1 applic TP DAILY [facility] Last Admin: 05/23/19 10:20 Dose: 1 applic Olanzapine (Zyprexa -) 2.5 mg PO HS [facility] Last Admin: 05/23/19 21:15 Dose: 2.5 mg Potassium Chloride (K-Dur -) 20 meq PO DAILY [facility] Last Admin: 05/23/19 10:17 Dose: 20 meq Ranitidine HCl (Zantac -) 150 mg PO DAILY [facility] Last Admin: 05/23/19 10:17 Dose: 150 mg Rosuvastatin Calcium (Crestor -) 10 mg PO DAILY [facility] Last Admin: 05/23/19 10:17 Dose: 10 mg Sodium Bicarbonate (Sodium Bicarbonate -) 650 mg PO TID [facility] Last Admin: 05/24/19 07:00 Dose: 650 mg Topiramate (Topamax -) 100 mg PO DAILY [facility] Last Admin: 05/23/19 10:16 Dose: 100 mg Venlafaxine HCl (Effexor Xr -) 75 mg PO DAILY [facility] Last Admin: 05/23/19 10:16 Dose: 75 mg Zolpidem Tartrate (Ambien -) 5 mg PO HS PRN PRN Reason: INSOMNIA Last Admin: 05/23/19 21:15 Dose: 5 mg - Objective Vital Signs: Vital Signs Temperature 101.4 F H 05/24/19 06:00 Pulse Rate 98 H 05/24/19 06:00 Respiratory Rate 20 05/24/19 06:00 Blood Pressure 110/64 05/24/19 06:00 O2 Sat by Pulse Oximetry (%) 99 05/23/19 08:07 Constitutional: Yes: No Distress Eyes: Yes: WNL HENT: Yes: WNL Neck: Yes: WNL Cardiovascular: Yes: Regular Rate and Rhythm Respiratory: Yes: Regular, Other (TRACHCOLLAR) Gastrointestinal: Yes: Abdomen, Obese Genitourinary: Yes: Incontinence Musculoskeletal: Yes: Muscle Weakness Extremities: Yes: Deformity (CASTS B/L LEGS) Edema: No Integumentary: Yes: Bruising, Rash Wound/Incision: Yes: Dressing Dry and Intact Neurological: Yes: Pre-Existing Deficit Psychiatric: Yes: Other Labs: CBC, BMP 05/24/19 06:30 05/24/19 06:30 INR, PTT INR 1.07 (0.83-1.09) 05/15/19 03:00 Problem List - Problems (1) Bilateral closed proximal tibial fracture Code(s): S82.101A - UNSP FRACTURE OF UPPER END OF RIGHT TIBIA, INIT FOR CLOS FX ; S82.102A - UNSP FRACTURE OF UPPER END OF LEFT TIBIA, INIT FOR CLOS FX (2) Hx of mcfp use of blood thinners Code(s): Z92.29 - PERSONAL HISTORY OF OTHER DRUG THERAPY (3) Acute and chronic respiratory failure with hypoxia Code(s): J96.21 - ACUTE AND CHRONIC RESPIRATORY FAILURE WITH HYPOXIA (4) Acute wheezy bronchitis Code(s): J20.9 - ACUTE BRONCHITIS, UNSPECIFIED (5) Afib Code(s): I48.91 - UNSPECIFIED ATRIAL FIBRILLATION (6) Bacteremia due to methicillin resistant Staphylococcus aureus Code(s): R78.81 - BACTEREMIA (7) Bipolar 1 disorder Code(s): F31.9 - BIPOLAR DISORDER, UNSPECIFIED (8) Diabetes Code(s): E11.9 - TYPE 2 DIABETES MELLITUS WITHOUT COMPLICATIONS (9) Anxiety Code(s): F41.9 - ANXIETY DISORDER, UNSPECIFIED (10) Hemarthrosis Code(s): M25.00 - HEMARTHROSIS, UNSPECIFIED JOINT Assessment/Plan MONITOR LABS AND CULTURES FOR FEVERS REFUSING IV ACCESS ON PO ABX FOR NOW ID CONSULT APPRECIATED ZYPREXA QHS FOR MOOD STABILIZATION PAIN CONTROL S/P TRANSFUSION PRBC H/H STABLE IVC FILTER PLACED ON VIT D FOR OSTEOPOROSIS, OUTPATIENT WILL NEED IV RECLAST ONCE PER YEAR FOR OSTEOPOROSIS TX DC PLANNING
[2019-05-24] MEDS: ROSUVASTATIN CA 10 MG TABLET (FP) PO SCH (09:11)
[2019-05-24] MEDS: VITAMIN B COMP W-C 1 EA TABLET PO SCH (09:11)
[2019-05-24] MEDS: CHOLECALCIFEROL (VIT D3) 1,000 UNIT (25 MCG) TABLET PO SCH (09:11)
[2019-05-24] MEDS: APIXABAN 5 MG TABLET PO SCH ×2 (09:11→22:12)
[2019-05-24] MEDS: RANITIDINE HCL 150 MG TABLET (FP) PO SCH (09:11)
[2019-05-24] MEDS: LACTOBACILLUS ACIDOPHILUS 1 TABLET PO SCH (09:11)
[2019-05-24] MEDS: POTASSIUM CHLORIDE TABS 20 MEQ TABLET.ER (FP) PO SCH (09:11)
[2019-05-24] MEDS: FERROUS SO4 325 MG TABLET (FP) PO SCH ×2 (09:11→22:12)
[2019-05-24] MEDS: BACITRACIN 15 GM TUBE TOPICAL OINTMENT TP SCH (09:12)
[2019-05-24] MEDS: VENLAFAXINE HCL 75 MG E.R. CAPSULES (FP) PO SCH (09:12)
[2019-05-24] MEDS: TOPIRAMATE 100 MG TABLET PO SCH (09:12)
[2019-05-24] MEDS: busPIRone HCL 10 MG TABLET (FP) PO SCH ×2 (09:12→22:11)
[2019-05-24] MEDS: ALPRAZolam 0.25 MG TABLET PO PRN ×2 (09:13→17:12)
[2019-05-24] MEDS: NYSTATIN POWDER 100,000 UNITS/GM - 15 GM TOPICAL POWDER TP SCH (09:13)
[2019-05-24] MEDS: CLOTRIMAZOLE 1% CREAM 15 GM TUBE TP SCH ×2 (09:19→22:12)
--- NOTE | 2019-05-24 09:50 | PN ---
Progress Note (short form) - Note Progress Note: PULMONARY Still with fevers and cough productive of clear/yellow sputum. Refusing IV placement. Vital Signs Period Temp Pulse Resp BP Sys/Dan Pulse Ox Last 24 Hr 97.8 F-101.4 F 92-103 20-20 106-110/60-64 Gen: NAD at rest Heart: RRR Lung: scattered rhonchi Abd: soft, nontender Ext: + edema CBC, BMP 05/24/19 06:30 05/24/19 06:30 Active Medications Acetaminophen (Tylenol -) 650 mg PO Q6H PRN PRN Reason: FEVER Last Admin: 05/23/19 06:58 Dose: 650 mg Albuterol Sulfate (Ventolin Hfa Inhaler -) 2 puff IH Q4H PRN PRN Reason: SHORT OF BREATH/WHEEZING Albuterol/Ipratropium (Duoneb -) 1 amp NEB RTID [facility] Last Admin: 05/24/19 08:40 Dose: 1 amp Alprazolam (Xanax -) 0.25 mg PO Q8H PRN PRN Reason: ANXIETY Last Admin: 05/24/19 09:13 Dose: 0.25 mg Apixaban (Eliquis -) 5 mg PO BID [facility] Last Admin: 05/24/19 09:11 Dose: 5 mg Bacitracin (Bacitracin -) 1 applic TP DAILY [facility] Last Admin: 05/24/19 09:12 Dose: Not Given Bismuth Subsalicylate (Pepto-Bismol -) 524 mg PO BID PRN PRN Reason: DIARRHEA Last Admin: 05/21/19 11:14 Dose: 524 mg Buspirone HCl (Buspar -) 10 mg PO BID [facility] Last Admin: 05/24/19 09:12 Dose: 10 mg Cholecalciferol (Vitamin D3 -) 1,000 unit PO DAILY [facility] Last Admin: 05/24/19 09:11 Dose: 1,000 unit Clotrimazole (Lotrimin 1% Cream -) 1 applic TP BID [facility] Last Admin: 05/24/19 09:19 Dose: 1 applic Docusate Sodium (Colace -) 100 mg PO TID [facility] Last Admin: 05/24/19 06:48 Dose: Not Given Emollient Ointment (Aquaphor -) 1 applic TP TID PRN PRN Reason: INCONTINENT DERMATITIS Last Admin: 05/22/19 10:25 Dose: 1 applic Ferrous Sulfate (Feosol -) 325 mg PO BID [facility] Last Admin: 05/24/19 09:11 Dose: 325 mg Hydromorphone HCl (Dilaudid -) 2 mg PO Q6H PRN PRN Reason: PAIN LEVEL 6-10 Last Admin: 05/24/19 07:01 Dose: 2 mg Insulin Aspart (Novolog Vial Sliding Scale -) 1 vial SQ ACHS [facility]; Protocol Last Admin: 05/24/19 07:00 Dose: Not Given Lactobacillus Acidophilus (Bacid -) 1 tab PO DAILY [facility] Last Admin: 05/24/19 09:11 Dose: 1 tab Levofloxacin (Levaquin -) 500 mg PO DAILY [facility] Stop: 05/29/19 10:01 Last Admin: 05/24/19 09:11 Dose: 500 mg Levothyroxine Sodium (Synthroid -) 75 mcg PO DAILY@0600 [facility] Last Admin: 05/24/19 07:00 Dose: 75 mcg Loperamide HCl (Imodium -) 2 mg PO Q8H PRN PRN Reason: DIARRHEA Last Admin: 05/21/19 22:05 Dose: 2 mg Montelukast Sodium (Singulair -) 10 mg PO HS [facility] Last Admin: 05/23/19 21:15 Dose: 10 mg Multivit/Ca Carb/B Cmplx/FA/Prenat (Nephro-Héctor -) 1 tablet PO DAILY [facility] Last Admin: 05/24/19 09:11 Dose: 1 tablet Nystatin (Nystop Powder -) 1 applic TP DAILY [facility] Last Admin: 05/24/19 09:13 Dose: 1 applic Olanzapine (Zyprexa -) 2.5 mg PO HS [facility] Last Admin: 05/23/19 21:15 Dose: 2.5 mg Potassium Chloride (K-Dur -) 20 meq PO DAILY [facility] Last Admin: 05/24/19 09:11 Dose: 20 meq Ranitidine HCl (Zantac -) 150 mg PO DAILY [facility] Last Admin: 05/24/19 09:11 Dose: 150 mg Rosuvastatin Calcium (Crestor -) 10 mg PO DAILY [facility] Last Admin: 05/24/19 09:11 Dose: 10 mg Sodium Bicarbonate (Sodium Bicarbonate -) 650 mg PO TID [facility] Last Admin: 05/24/19 07:00 Dose: 650 mg Topiramate (Topamax -) 100 mg PO DAILY [facility] Last Admin: 05/24/19 09:12 Dose: 100 mg Venlafaxine HCl (Effexor Xr -) 75 mg PO DAILY [facility] Last Admin: 05/24/19 09:12 Dose: 75 mg Zolpidem Tartrate (Ambien -) 5 mg PO HS PRN PRN Reason: INSOMNIA Last Admin: 05/23/19 21:15 Dose: 5 mg A/P s/p Fall Bilateral Proximal Tibial/Fibula Fractures r/o Pneumonia COPD Chronic Hypoxic Respiratory Failure Atrial Fibrillation HTN Hyperlipidemia h/o Uterine Ca Anemia - check CXR, urine studies - continue antibiotics - f/u cultures - pain control - inhaled bronchodilators - O2 to keep Spo2 >90% - DVT prophylaxis
[2019-05-24 12:08] LABS: EPI CELLS >36 /HPF (0-5/HPF); HYALINE CASTS 92 /lpf (0-8); PH,URINE 7.5 (5.0-8.0); URINE APPEARANCE TURBID; URINE BACTERIA 1625.2 /hpf (NEGATIVE); URINE BILIRUBIN NEGATIVE (NEGATIVE); URINE COLOR YELLOW; URINE GLUCOSE (UA) NEGATIVE (NEGATIVE); URINE KETONE NEGATIVE (NEGATIVE); URINE LEUK ESTERASE 3+ (NEGATIVE); URINE NITRITE POSITIVE (NEGATIVE); URINE PROTEIN NEGATIVE (NEGATIVE); URINE UROBILINOGEN 0.2 mg/dL (0.2-1.0); URINE WBC 15 /hpf (0-5)
[2019-05-24 12:58] LABS: URINE RBC 20.4 /hpf (0-4)
[2019-05-24 12:59] LABS: YEAST NONE SEEN (NEGATIVE)
[2019-05-24] MEDS: diphenhydrAMINE HCL 25 MG CAPSULE (FP) PO PRN ×2 (14:35→22:13)
--- NOTE | 2019-05-24 15:56 | CON.ID ---
Consult Referred by:: dr marcial Reason for Consultation:: fever - History of Present Illness Chief Complaint: admitted s/p fall 05/15 History of Present Illness: hospital day #9- chart reviewed 53 yo female home for 4 days after 6 month NH stay, fell getting out of the cab and sustained bilaeral tib/fib fractures on 05/15 she refuesd surgery so bilateral casts were placed she had an ivc filter placed sas well on 05/18 she has been having intermitten fever since 05/18 had some transient abdominal pain and diarrhea that hve resolved seen by pulmonary yesterday noted to ahve a possible left sided infiltrate she refused iv placement and was placed on levaquin she continues to refuse IV placement denies SOB tmax was 101.4, she has been afebrile since chronic trach - Past Medical History Cardio/Vascular: Yes: AFIB (Paroxysmal), HTN, Hyperlipdemia Pulmonary: Yes: Asthma, Bronchitis, COPD, O2 Dependent, Pneumonia, Previously Intubated, Sleep Apnea, Other (Trach). No: Cancer, Pulmonary Embolus, Pulmonary Fibrosis Gastrointestinal: Yes: GI Bleed Hepatobiliary: Yes: Other (Fatty Liver). No: Cirrhosis Renal/: Yes: Cancer (Uterine), Other ([place] in the past) Infectious Disease: Yes: C-Diff (june 2014), Other (Osteomyelitis of thoracic spine) Psych: Yes: Anxiety, Bipolar, Depression Musculoskeletal: Yes: Chronic low back pain, Other (multiple vertebral fractures ) Endocrine: Yes: Diabetes Mellitus, Hypothyroidism Additional Medical History: Frequent c/o abdominal pain-extensive w/u in the past negative. Presumed adhesions from prior surgeries. - Past Surgical History Past Surgical History: Yes: Appendectomy, Colectomy (By description, right colon resection with anastamosis noted on colonoscopy 2013), Hysterectomy (ADE/ BSO) Additional Surgical History: left hip pinning, right shoulder pinning. thoracic spine fusion - Alcohol/Substance Use Hx Alcohol Use: No History of Substance Use: reports: Prescription - Smoking History Smoking history: Never smoked Have you smoked in the past 12 months: No Aproximately how many cigarettes per day: 3 If you are a former smoker, when did you quit?: 1997 - Social History Usual Living Arrangement: Alone 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) History of Recent Travel: No Home Medications - Allergies Allergies/Adverse Reactions: Allergies Allergy/AdvReac Type Severity Reaction Status Date / Time oxycodone [Oxycodone] Allergy Severe Nausea Verified 12/27/18 11:33 oxycodone HCl [From Percocet] Allergy Severe Nausea Verified 12/27/18 11:33 aspirin Allergy Mild Verified 12/27/18 11:33 blueberry [Blueberry] Allergy Mild Swelling Verified 12/27/18 11:33 fentanyl Allergy Mild Vomiting Verified 12/27/18 11:33 ibuprofen Allergy Swelling Verified 12/27/18 11:33 aspartame AdvReac Mild Itching Verified 12/27/18 11:33 - Home Medications Home Medications: Ambulatory Orders Albuterol Sulfate Inhaler - [Ventolin HFA Inhaler -] 2 puff IH Q4H PRN #0 inhaler 11/29/16 Acetaminophen [Tylenol .Regular Strength -] 650 mg PO Q6H PRN #0 tablet Apixaban [Eliquis -] 5 mg PO BID tablet 04/29/17 Baclofen 10 mg PO TID 07/09/18 Rosuvastatin Calcium [Crestor] 10 mg PO DAILY 07/09/18 Montelukast Na [Singulair -] 10 mg PO HS 08/07/18 Topiramate [Topamax -] 100 mg PO DAILY #30 tablet 08/15/18 Alprazolam [Xanax] 0.25 mg PO Q8H PRN tablet MDD 3 10/23/18 Cholecalciferol (Vitamin D3) [Vitamin D3 -] 1,000 unit PO DAILY tab 11/09/18 Doxepin HCl [Sinequan -] 25 mg PO HS capsule 11/09/18 Ferrous Sulfate [Feosol] 325 mg PO BID ud 11/09/18 Nystatin Powder [Nystop Powder -] 1 applic TP DAILY applic 11/09/18 HYDROmorphone [Dilaudid -] 2 mg PO Q4H PRN 12/12/18 Insulin Sliding Scale [Novolog Vial Sliding Scale -] 0 units SQ TIDAC 12/12/18 Pramipexole Di-HCl [Mirapex] 0.5 mg PO TID 12/12/18 Ranitidine [Zantac -] 150 mg PO DAILY 12/12/18 Venlafaxine HCl ER [Effexor Xr -] 75 mg PO DAILY 12/12/18 Vitamin B Comp W-C [Nephro-Héctor -] 1 tablet PO DAILY 12/12/18 Albuterol 2.5/Ipratropium 0.5 [Duoneb -] [address] [facility] RTID amp 12/23/18 Lactobacillus Acidophilus [Bacid -] 1 tab PO DAILY tab 12/23/18 Sodium Bicarbonate - 650 mg PO TID #30 tablet MDD 3 12/23/18 Acetaminophen [Tylenol .Regular Strength -] 650 mg PO Q6HPO PRN tablet Albuterol 2.5/Ipratropium 0.5 [Duoneb -] [address] [facility] RTID amp 12/31/18 Alprazolam [Xanax] 0.25 mg PO Q8H PRN tablet MDD 3 12/31/18 Apixaban [Eliquis -] 5 mg PO BID tablet 12/31/18 Buspirone HCl [Buspar -] 10 mg PO BID tablet 12/31/18 Clotrimazole [Lotrimin -] 1 applic TP BID tube 12/31/18 Diphenhydramine HCl [Benadryl Capsule -] 25 mg PO Q6H PRN capsule 12/31/18 Ferrous Sulfate [Feosol] 325 mg PO BIDWM ud 12/31/18 HYDROmorphone [Dilaudid -] 2 mg PO Q6H PRN tablet MDD 4 12/31/18 Insulin Sliding Scale [Novolog Vial Sliding Scale -] 1 vial SQ ACHS units 12/31 Levothyroxine [Synthroid -] 75 mcg PO DAILY@0600 tablet 12/31/18 Loperamide HCl [Imodium -] 2 mg PO Q8H PRN capsule 12/31/18 Nystatin Powder [Nystop Powder -] 1 applic TP DAILY applic 12/31/18 Pramipexole Dihydrochloride [Mirapex -] 0.25 mg PO TID tablet 12/31/18 Venlafaxine HCl ER [Effexor Xr -] 75 mg PO DAILY@0600 cap.er.24h 12/31/18 Family Disease History - Family Disease History Family Disease History: Diabetes: Mother (Alive: heart surgery), Heart Disease: Mother, [place]: Father (: leukemia), Other: Brother (2,Healthy), Sister (1, Healthy) Review of Systems - Review of Systems Constitutional: reports: Fever. denies: Chills Eyes: reports: No Symptoms HENT: reports: No Symptoms Neck: reports: No Symptoms Cardiovascular: reports: No Symptoms Respiratory: reports: No Symptoms Gastrointestinal: reports: No Symptoms Genitourinary: reports: No Symptoms Physical Exam Vital Signs: Vital Signs Temperature 98.2 F 05/24/19 10:52 Pulse Rate 92 H 05/24/19 10:52 Respiratory Rate 20 05/24/19 10:52 Blood Pressure 112/62 05/24/19 10:52 O2 Sat by Pulse Oximetry (%) 99 05/23/19 08:07 Constitutional: Yes: Well Nourished, No Distress, Calm Eyes: Yes: Conjunctiva Clear HENT: Yes: Atraumatic, Normocephalic Neck: Yes: Supple, Trachea Midline (+trach) Cardiovascular: Yes: Regular Rate and Rhythm Respiratory: Yes: CTA Bilaterally, Diminished (at bases) Gastrointestinal: Yes: Normal Bowel Sounds, Soft, Other. No: Tenderness ...Rectal Exam: Yes: Deferred Extremities: Yes: WNL Edema: No Neurological: Yes: Alert, Oriented Labs: CBC, BMP 05/24/19 06:30 05/24/19 06:30 Microbiology 05/23/19 12:25 Blood - Peripheral Venous Blood Culture - Preliminary NO GROWTH OBTAINED AFTER 24 HOURS, INCUBATION TO CONTINUE FOR 4 DAYS. 05/23/19 12:30 Blood - Peripheral Venous Blood Culture - Preliminary NO GROWTH OBTAINED AFTER 24 HOURS, INCUBATION TO CONTINUE FOR 4 DAYS. 05/20/19 19:44 Stool Salmonella/Shigella Culture - Final NO GROWTH OF SALMONELLA OR SHIGELLA SPECIES OBTAINED 05/20/19 19:44 Stool Campylobacter Culture - Final NO GROWTH OF CAMPYLOBACTER SPECIES OBTAINED 05/20/19 19:44 Stool Yersinia Culture - Final NO GROWTH OF YERSINIA SPECIES OBTAINED 05/20/19 19:44 Stool Vibrio Culture - Final NO GROWTH OF VIBRIO SPECIES OBTAINED 05/20/19 19:44 Stool Escherichia coli 0157 Culture - Final NO GROWTH OF E COLI 0157 OBTAINED Imaging - Results Chest X-ray: Report Reviewed Problem List - Problems (1) Fever Code(s): R50.9 - FEVER, UNSPECIFIED (2) Bilateral tibial fractures Code(s): S82.201A - UNSP FRACTURE OF SHAFT OF RIGHT TIBIA, INIT FOR CLOS FX; S82.202A - UNSP FRACTURE OF SHAFT OF LEFT TIBIA, INIT FOR CLOS FX (3) Bilateral fibular fractures Code(s): S82.401A - UNSP FRACTURE OF SHAFT OF RIGHT FIBULA, INIT FOR CLOS FX; S82.402A - UNSP FRACTURE OF SHAFT OF LEFT FIBULA, INIT FOR CLOS FX (4) Chronic respiratory failure Code(s): J96.10 - CHRONIC RESPIRATORY FAILURE, UNSP W HYPOXIA OR HYPERCAPNIA (5) Diabetes Code(s): E11.9 - TYPE 2 DIABETES MELLITUS WITHOUT COMPLICATIONS Assessment/Plan fevers-normal labs refusing iv placement started on po levaquin yesterday hemodynamically stable UA is contaminated- culture of no value- obtain straight cath specimen if fevers persist repeat cxray if she has further fever incentive spirometry to bedside have asked her to reconsider iv placemnt if fevers recur s/p fall with bilateral tib/fib fracture
[2019-05-24] MEDS ORDERED: PT OWN MED DRAWER 7, Y5N ONE (17:01)
--- NOTE | 2019-05-24 21:56 | OP ---
DATE OF OPERATION: 05/18/2019 PREOPERATIVE DIAGNOSIS: Bilateral tibia and fibula fractures. POSTOPERATIVE DIAGNOSIS: Bilateral tibia and fibula fractures. PROCEDURE: Insertion of inferior vena cava filter with venogram. SURGEON: Ze Flowers DO ANESTHESIA: Fractional. BLOOD LOSS: 5 mL. INDICATIONS: Patient is a 53-year-old female that recently had bilateral tibia-fibula fractures and came in through the ER. She has a falling hemoglobin and hematocrit. She has atrial fibrillation and needed to be anticoagulated. Due to the fact that her hemoglobin is falling, she cannot be anticoagulated anymore. Due to the fact that she is going to be in bilateral lower extremity casts and will be immobile, she warrants to have an IVC filter placed. Patient was consented for the procedure, understanding all risks, benefits, alternatives, and was taken to the operating room. DESCRIPTION OF PROCEDURE: Once in the operating suite, was placed on the operating table in the supine manner. The area of the right groin was prepped and draped in the sterile surgical manner. We then injected 10 mL of lidocaine 1% over the right common femoral vein. We then took a micropuncture needle and punctured the right common femoral vein. Micropuncture wire was inserted. Micropuncture sheath was inserted. We then placed a 0.035 floppy guidewire up into the inferior vena cava under fluoroscopy. We then positioned the C-arm so that we could see the last rib. We then went ahead and placed our IVC filter sheath up to L3. We then shot a venacavagram showing that the bilateral renal veins were coming off on L1. We then went ahead and loaded the filter into the sheath and the filter was deployed between L2 and L3. Completion venacavagram now showed that the filter was in place. There was no extravasation of contrast. There was evacuation of the filter and bilateral renal veins were patent. At this point, we removed the sheath. Pressure was held in the right groin for 5 minutes, after which there was no bleeding. The area was cleaned and dried. Dermabond was placed. Patient tolerated the procedure with no complications. Patient transferred to PACU in stable condition. ZE FLOWERS DO [id number]
[2019-05-24] MEDS: MONTELUKAST NA 10 MG TABLET PO SCH (22:13)
[2019-05-24] MEDS: OLANZapine 2.5 MG TABLET PO SCH (22:13)
[2019-05-24] MEDS: ZOLPIDEM TARTRATE 5 MG TABLET PO PRN (22:30)
[2019-05-25] MEDS: ALPRAZolam 0.25 MG TABLET PO PRN ×3 (01:45→22:05)
[2019-05-25] MEDS: HYDROmorphone HCL 2 MG TABLET PO PRN ×4 (02:00→23:28)
[2019-05-25] MEDS: DOCUSATE SODIUM 100 MG CAPSULE (FP) PO SCH ×3 (05:43→21:54)
[2019-05-25] MEDS: SODIUM BICARBONATE 650 MG TABLET PO SCH ×3 (05:53→21:54)
[2019-05-25] MEDS: LEVOTHYROXINE NA 75 MCG TABLET (FP) PO SCH (05:53)
[2019-05-25] MEDS: INSULIN SLIDING SCALE (NOVOLOG) 1 VIAL SQ SCH ×4 (06:19→21:56)
--- NOTE | 2019-05-25 07:39 | PN ---
Progress Note, Physician - Current Medication List Current Medications: Active Medications Acetaminophen (Tylenol -) 650 mg PO Q6H PRN PRN Reason: FEVER Last Admin: 05/23/19 06:58 Dose: 650 mg Albuterol Sulfate (Ventolin Hfa Inhaler -) 2 puff IH Q4H PRN PRN Reason: SHORT OF BREATH/WHEEZING Albuterol/Ipratropium (Duoneb -) 1 amp NEB RTID [facility] Last Admin: 05/24/19 20:35 Dose: 1 amp Alprazolam (Xanax -) 0.25 mg PO Q8H PRN PRN Reason: ANXIETY Last Admin: 05/25/19 01:45 Dose: 0.25 mg Apixaban (Eliquis -) 5 mg PO BID [facility] Last Admin: 05/24/19 22:12 Dose: 5 mg Bacitracin (Bacitracin -) 1 applic TP DAILY [facility] Last Admin: 05/24/19 09:12 Dose: Not Given Bismuth Subsalicylate (Pepto-Bismol -) 524 mg PO BID PRN PRN Reason: DIARRHEA Last Admin: 05/21/19 11:14 Dose: 524 mg Buspirone HCl (Buspar -) 10 mg PO BID [facility] Last Admin: 05/24/19 22:11 Dose: 10 mg Cholecalciferol (Vitamin D3 -) 1,000 unit PO DAILY [facility] Last Admin: 05/24/19 09:11 Dose: 1,000 unit Clotrimazole (Lotrimin 1% Cream -) 1 applic TP BID [facility] Last Admin: 05/24/19 22:12 Dose: 1 applic Diphenhydramine HCl (Benadryl -) 25 mg PO Q6H PRN PRN Reason: FOR ITCHING Last Admin: 05/24/19 22:13 Dose: 25 mg Docusate Sodium (Colace -) 100 mg PO TID [facility] Last Admin: 05/25/19 05:43 Dose: Not Given Emollient Ointment (Aquaphor -) 1 applic TP TID PRN PRN Reason: INCONTINENT DERMATITIS Last Admin: 05/22/19 10:25 Dose: 1 applic Ferrous Sulfate (Feosol -) 325 mg PO BID [facility] Last Admin: 05/24/19 22:12 Dose: 325 mg Hydromorphone HCl (Dilaudid -) 2 mg PO Q6H PRN PRN Reason: PAIN LEVEL 6-10 Last Admin: 05/25/19 02:00 Dose: 2 mg Insulin Aspart (Novolog Vial Sliding Scale -) 1 vial SQ ACHS [facility]; Protocol Last Admin: 05/25/19 06:19 Dose: Not Given Lactobacillus Acidophilus (Bacid -) 1 tab PO DAILY [facility] Last Admin: 05/24/19 09:11 Dose: 1 tab Levofloxacin (Levaquin -) 500 mg PO DAILY@0600 [facility] Stop: 05/29/19 06:01 Last Admin: 05/25/19 05:53 Dose: 500 mg Levothyroxine Sodium (Synthroid -) 75 mcg PO DAILY@0600 [facility] Last Admin: 05/25/19 05:53 Dose: 75 mcg Loperamide HCl (Imodium -) 2 mg PO Q8H PRN PRN Reason: DIARRHEA Last Admin: 05/21/19 22:05 Dose: 2 mg Montelukast Sodium (Singulair -) 10 mg PO [facility] Last Admin: 05/24/19 22:13 Dose: 10 mg Multivit/Ca Carb/B Cmplx/FA/Prenat (Nephro-Héctor -) 1 tablet PO DAILY [facility] Last Admin: 05/24/19 09:11 Dose: 1 tablet Nystatin (Nystop Powder -) 1 applic TP DAILY [facility] Last Admin: 05/24/19 09:13 Dose: 1 applic Olanzapine (Zyprexa -) 2.5 mg PO [facility] Last Admin: 05/24/19 22:13 Dose: 2.5 mg Potassium Chloride (K-Dur -) 20 meq PO DAILY [facility] Last Admin: 05/24/19 09:11 Dose: 20 meq Ranitidine HCl (Zantac -) 150 mg PO DAILY [facility] Last Admin: 05/24/19 09:11 Dose: 150 mg Rosuvastatin Calcium (Crestor -) 10 mg PO DAILY [facility] Last Admin: 05/24/19 09:11 Dose: 10 mg Sodium Bicarbonate (Sodium Bicarbonate -) 650 mg PO TID [facility] Last Admin: 05/25/19 05:53 Dose: 650 mg Topiramate (Topamax -) 100 mg PO DAILY [facility] Last Admin: 05/24/19 09:12 Dose: 100 mg Venlafaxine HCl (Effexor Xr -) 75 mg PO DAILY [facility] Last Admin: 05/24/19 09:12 Dose: 75 mg Zolpidem Tartrate (Ambien -) 5 mg PO HS PRN PRN Reason: INSOMNIA Last Admin: 05/24/19 22:30 Dose: 5 mg - Objective Vital Signs: Vital Signs Temperature 101.4 F H 05/25/19 06:00 Pulse Rate 124 H 05/25/19 06:00 Respiratory Rate 20 05/25/19 06:00 Blood Pressure 100/62 05/25/19 06:00 O2 Sat by Pulse Oximetry (%) 99 05/23/19 08:07 Cardiovascular: Yes: S1, S2 Respiratory: Yes: Regular, CTA Bilaterally Gastrointestinal: Yes: Normal Bowel Sounds, Soft Labs: CBC, BMP 05/24/19 06:30 INR, PTT INR 1.07 (0.83-1.09) 05/15/19 03:00 Assessment/Plan - Problems (1) Bilateral closed proximal tibial fracture Assessment/Plan: -Ortho consult noted -pain control -Xray shows acute fracture proximal one third tibial diametaphysis, cannot exclude injury in tibial plateau Code(s): S82.101A - UNSP FRACTURE OF UPPER END OF RIGHT TIBIA, INIT FOR CLOS FX ; S82.102A - UNSP FRACTURE OF UPPER END OF LEFT TIBIA, INIT FOR CLOS FX (2) Afib Assessment/Plan: -Eliquis Code(s): I48.91 - UNSPECIFIED ATRIAL FIBRILLATION (3) Chronic respiratory failure Assessment/Plan: -O2 via trach collar -bronchodilators -montelukast -keep SpO2 >90% Code(s): J96.10 - CHRONIC RESPIRATORY FAILURE, UNSP W HYPOXIA OR HYPERCAPNIA (4) Diabetes Assessment/Plan: -BGM ACHS -ISS Code(s): E11.9 - TYPE 2 DIABETES MELLITUS WITHOUT COMPLICATIONS (5) Hypothyroid Assessment/Plan: -Levothyroxine Code(s): E03.9 - HYPOTHYROIDISM, UNSPECIFIED Qualifiers: (6) COPD (chronic obstructive pulmonary disease) Assessment/Plan: -Montelukast -O2 via trach collar -keep SpO2 >90% Code(s): J44.9 - CHRONIC OBSTRUCTIVE PULMONARY DISEASE, UNSPECIFIED (7) GERD (gastroesophageal reflux disease) Assessment/Plan: -Rantidine Code(s): K21.9 - GASTRO-ESOPHAGEAL REFLUX DISEASE WITHOUT ESOPHAGITIS (8) Fever Assessment/Plan: -unknown -id on board Microbiology 05/23/19 12:30 Blood - Peripheral Venous Blood Culture - Preliminary NO GROWTH OBTAINED AFTER 48 HOURS, INCUBATION TO CONTINUE FOR 3 DAYS. 05/23/19 12:25 Blood - Peripheral Venous Blood Culture - Preliminary NO GROWTH OBTAINED AFTER 48 HOURS, INCUBATION TO CONTINUE FOR 3 DAYS. 05/24/19 11:45 Urine - Urine Clean Catch Urine Culture - Preliminary 05/20/19 19:44 Stool Salmonella/Shigella Culture - Final NO GROWTH OF SALMONELLA OR SHIGELLA SPECIES OBTAINED 05/20/19 19:44 Stool Campylobacter Culture - Final NO GROWTH OF CAMPYLOBACTER SPECIES OBTAINED 05/20/19 19:44 Stool Yersinia Culture - Final NO GROWTH OF YERSINIA SPECIES OBTAINED 05/20/19 19:44 Stool Vibrio Culture - Final NO GROWTH OF VIBRIO SPECIES OBTAINED 05/20/19 19:44 Stool Escherichia coli 0157 Culture - Final NO GROWTH OF E COLI 0157 OBTAINED source
[2019-05-25] MEDS: diphenhydrAMINE HCL 25 MG CAPSULE (FP) PO PRN ×2 (08:10→14:56)
[2019-05-25] MEDS: ALBUTEROL SO4 2.5/IPRATROPIUM 0.5 INH SOL 3 ML VIAL.NEB. NEB SCH ×3 (08:11→20:12)
[2019-05-25 08:27] LABS: BASO % 0.8 % (0-2.0); EOS % 6.3 % (0-4.5); HEMATOCRIT 27.9 % (32.4-45.2); HEMOGLOBIN 9.1 GM/dL (10.7-15.3); LYMPH % 15.3 % (8-40); MCH 30.2 pg (25.7-33.7); MCHC 32.6 g/dl (32.0-36.0); MEAN CELL VOLUME 92.8 fl (80-96); MEAN PLT VOLUME 9.1 fl (7.5-11.1); MONO % 8.9 % (3.8-10.2); NEUT % 68.7 % (42.8-82.8); PLATELET COUNT 361 K/MM3 (134-434); RBC 3.01 M/mm3 (3.60-5.2); RDW 15.6 % (11.6-15.6); WHITE BLOOD COUNT 8.1 K/mm3 (4.0-10.0)
[2019-05-25 08:43] LABS: ALBUMIN 2.6 g/dl (3.4-5.0); BILIRUBIN,TOTAL 0.7 mg/dL (0.2-1); CALCIUM 8.5 mg/dL (8.5-10.1); POTASSIUM 4.1 mmol/L (3.5-5.1); TOT PROT 6.3 g/dl (6.4-8.2)
--- NOTE | 2019-05-25 10:58 | PN ---
Progress Note (short form) - Note Progress Note: agreed to iv placement and cxray today refuses straight cath urine continued intermittent fevers has external urinary catheter no abdominal pain no diarrhea Vital Signs Period Temp Pulse Resp BP Sys/Dan Pulse Ox Last 24 Hr 98.1 F-101.4 F 102-124 18-20 90-114/62-72 cor-rrr lungs decreased bs at bases abd soft,nt ext bilateral leg casts CBC, BMP 05/25/19 06:32 05/25/19 06:32 Microbiology 05/24/19 11:45 Urine - Urine Clean Catch Urine Culture - Preliminary 05/23/19 12:25 Blood - Peripheral Venous Blood Culture - Preliminary NO GROWTH OBTAINED AFTER 24 HOURS, INCUBATION TO CONTINUE FOR 4 DAYS. 05/23/19 12:30 Blood - Peripheral Venous Blood Culture - Preliminary NO GROWTH OBTAINED AFTER 24 HOURS, INCUBATION TO CONTINUE FOR 4 DAYS. 05/20/19 19:44 Stool Salmonella/Shigella Culture - Final NO GROWTH OF SALMONELLA OR SHIGELLA SPECIES OBTAINED 05/20/19 19:44 Stool Campylobacter Culture - Final NO GROWTH OF CAMPYLOBACTER SPECIES OBTAINED 05/20/19 19:44 Stool Yersinia Culture - Final NO GROWTH OF YERSINIA SPECIES OBTAINED 05/20/19 19:44 Stool Vibrio Culture - Final NO GROWTH OF VIBRIO SPECIES OBTAINED 05/20/19 19:44 Stool Escherichia coli 0157 Culture - Final NO GROWTH OF E COLI 0157 OBTAINED cxray improved, no foacl infiltrate a/p intermittent fevers s/p bilateral tib/fib fractures will f/u fever w/u refuses straight cath Problem List - Problems (1) Fever Code(s): R50.9 - FEVER, UNSPECIFIED (2) Bilateral tibial fractures Code(s): S82.201A - UNSP FRACTURE OF SHAFT OF RIGHT TIBIA, INIT FOR CLOS FX; S82.202A - UNSP FRACTURE OF SHAFT OF LEFT TIBIA, INIT FOR CLOS FX (3) Bilateral fibular fractures Code(s): S82.401A - UNSP FRACTURE OF SHAFT OF RIGHT FIBULA, INIT FOR CLOS FX; S82.402A - UNSP FRACTURE OF SHAFT OF LEFT FIBULA, INIT FOR CLOS FX (4) Chronic respiratory failure Code(s): J96.10 - CHRONIC RESPIRATORY FAILURE, UNSP W HYPOXIA OR HYPERCAPNIA (5) Diabetes Code(s): E11.9 - TYPE 2 DIABETES MELLITUS WITHOUT COMPLICATIONS
[2019-05-25] MEDS: POTASSIUM CHLORIDE TABS 20 MEQ TABLET.ER (FP) PO SCH (11:04)
[2019-05-25] MEDS: RANITIDINE HCL 150 MG TABLET (FP) PO SCH (11:04)
[2019-05-25] MEDS: APIXABAN 5 MG TABLET PO SCH ×2 (11:04→21:54)
[2019-05-25] MEDS: LACTOBACILLUS ACIDOPHILUS 1 TABLET PO SCH (11:04)
[2019-05-25] MEDS: VENLAFAXINE HCL 75 MG E.R. CAPSULES (FP) PO SCH (11:04)
[2019-05-25] MEDS: ROSUVASTATIN CA 10 MG TABLET (FP) PO SCH (11:04)
[2019-05-25] MEDS: CHOLECALCIFEROL (VIT D3) 1,000 UNIT (25 MCG) TABLET PO SCH (11:04)
[2019-05-25] MEDS: TOPIRAMATE 100 MG TABLET PO SCH (11:04)
[2019-05-25] MEDS: VITAMIN B COMP W-C 1 EA TABLET PO SCH (11:04)
[2019-05-25] MEDS: busPIRone HCL 10 MG TABLET (FP) PO SCH ×2 (11:05→21:54)
[2019-05-25] MEDS: FERROUS SO4 325 MG TABLET (FP) PO SCH ×2 (11:05→21:54)
[2019-05-25] MEDS: BACITRACIN 15 GM TUBE TOPICAL OINTMENT TP SCH (11:05)
[2019-05-25] MEDS: NYSTATIN POWDER 100,000 UNITS/GM - 15 GM TOPICAL POWDER TP SCH (11:06)
[2019-05-25] MEDS: CLOTRIMAZOLE 1% CREAM 15 GM TUBE TP SCH ×2 (11:06→21:55)
--- NOTE | 2019-05-25 13:43 | PN ---
Progress Note (short form) - Note Progress Note: PULMONARY Continues to have intermittent fevers. CXR without acute findings. Vital Signs Period Temp Pulse Resp BP Sys/Dan Pulse Ox Last 24 Hr 98.1 F-101.4 F 102-124 18-22 90-114/62-72 Gen: NAD at rest Heart: RRR Lung: scattered rhonchi Abd: soft, nontender Ext: + edema CBC, BMP 05/25/19 06:32 05/25/19 06:32 Active Medications Acetaminophen (Tylenol -) 650 mg PO Q6H PRN PRN Reason: FEVER Last Admin: 05/23/19 06:58 Dose: 650 mg Albuterol Sulfate (Ventolin Hfa Inhaler -) 2 puff IH Q4H PRN PRN Reason: SHORT OF BREATH/WHEEZING Albuterol/Ipratropium (Duoneb -) 1 amp NEB RTID [facility] Last Admin: 05/25/19 08:11 Dose: 1 amp Alprazolam (Xanax -) 0.25 mg PO Q8H PRN PRN Reason: ANXIETY Last Admin: 05/25/19 08:53 Dose: 0.25 mg Apixaban (Eliquis -) 5 mg PO BID [facility] Last Admin: 05/25/19 11:04 Dose: 5 mg Bacitracin (Bacitracin -) 1 applic TP DAILY [facility] Last Admin: 05/25/19 11:05 Dose: Not Given Bismuth Subsalicylate (Pepto-Bismol -) 524 mg PO BID PRN PRN Reason: DIARRHEA Last Admin: 05/21/19 11:14 Dose: 524 mg Buspirone HCl (Buspar -) 10 mg PO BID [facility] Last Admin: 05/25/19 11:05 Dose: 10 mg Cholecalciferol (Vitamin D3 -) 1,000 unit PO DAILY [facility] Last Admin: 05/25/19 11:04 Dose: 1,000 unit Clotrimazole (Lotrimin 1% Cream -) 1 applic TP BID [facility] Last Admin: 05/25/19 11:06 Dose: 1 applic Diphenhydramine HCl (Benadryl -) 25 mg PO Q6H PRN PRN Reason: FOR ITCHING Last Admin: 05/25/19 08:10 Dose: 25 mg Docusate Sodium (Colace -) 100 mg PO TID [facility] Last Admin: 05/25/19 05:43 Dose: Not Given Emollient Ointment (Aquaphor -) 1 applic TP TID PRN PRN Reason: INCONTINENT DERMATITIS Last Admin: 05/22/19 10:25 Dose: 1 applic Ferrous Sulfate (Feosol -) 325 mg PO BID [facility] Last Admin: 05/25/19 11:05 Dose: 325 mg Hydromorphone HCl (Dilaudid -) 2 mg PO Q6H PRN PRN Reason: PAIN LEVEL 6-10 Last Admin: 05/25/19 11:18 Dose: 2 mg Piperacillin Sod/Tazobactam (Sod 3.375 gm/ Dextrose) 50 mls @ 100 mls/hr IVPB Q8H-IV [facility]; Protocol Insulin Aspart (Novolog Vial Sliding Scale -) 1 vial SQ ACHS [facility]; Protocol Last Admin: 05/25/19 12:32 Dose: Not Given Lactobacillus Acidophilus (Bacid -) 1 tab PO DAILY [facility] Last Admin: 05/25/19 11:04 Dose: 1 tab Levothyroxine Sodium (Synthroid -) 75 mcg PO DAILY@0600 [facility] Last Admin: 05/25/19 05:53 Dose: 75 mcg Loperamide HCl (Imodium -) 2 mg PO Q8H PRN PRN Reason: DIARRHEA Last Admin: 05/21/19 22:05 Dose: 2 mg Montelukast Sodium (Singulair -) 10 mg PO HS [facility] Last Admin: 05/24/19 22:13 Dose: 10 mg Multivit/Ca Carb/B Cmplx/FA/Prenat (Nephro-Héctor -) 1 tablet PO DAILY [facility] Last Admin: 05/25/19 11:04 Dose: 1 tablet Nystatin (Nystop Powder -) 1 applic TP DAILY [facility] Last Admin: 05/25/19 11:06 Dose: 1 applic Olanzapine (Zyprexa -) 2.5 mg PO HS [facility] Last Admin: 05/24/19 22:13 Dose: 2.5 mg Potassium Chloride (K-Dur -) 20 meq PO DAILY [facility] Last Admin: 05/25/19 11:04 Dose: 20 meq Ranitidine HCl (Zantac -) 150 mg PO DAILY [facility] Last Admin: 05/25/19 11:04 Dose: 150 mg Rosuvastatin Calcium (Crestor -) 10 mg PO DAILY [facility] Last Admin: 05/25/19 11:04 Dose: 10 mg Sodium Bicarbonate (Sodium Bicarbonate -) 650 mg PO TID [facility] Last Admin: 05/25/19 05:53 Dose: 650 mg Topiramate (Topamax -) 100 mg PO DAILY [facility] Last Admin: 05/25/19 11:04 Dose: 100 mg Venlafaxine HCl (Effexor Xr -) 75 mg PO DAILY [facility] Last Admin: 05/25/19 11:04 Dose: 75 mg Zolpidem Tartrate (Ambien -) 5 mg PO HS PRN PRN Reason: INSOMNIA Last Admin: 05/24/19 22:30 Dose: 5 mg A/P s/p Fall Bilateral Proximal Tibial/Fibula Fractures r/o UTI COPD Chronic Hypoxic Respiratory Failure Atrial Fibrillation HTN Hyperlipidemia h/o Uterine Ca Anemia - continue antibiotics per ID - f/u cultures - pain control - inhaled bronchodilators - O2 to keep Spo2 >90% - DVT prophylaxis
--- NOTE | 2019-05-25 14:09 | ECHO ---
Name: JASWINDER CORTES Exam:Adult Echocardiogram Study Date: 05/25/2019 10:18 AM Age: 53 yrs Reason For Study: fever Height: 63 in Weight: 145 lb BSA: 1.7 m2 MMode/2D Measurements & Calculations IVSd: 1.2 cm Ao root diam: 2.7 cm LVIDd: 3.3 cm LA dimension: 3.1 cm LVIDs: 2.3 cm LVPWd: 1.2 cm EDV(Teich): 45.6 ml LVOT diam: 2.0 cm ESV(Teich): 18.0 ml Doppler Measurements & Calculations MV E max en: 62.1 cm/sec Ao V2 max: 135.7 cm/sec MV A max en: 106.7 cm/sec Ao max P.4 mmHg MV E/A: 0.58 MV dec time: 0.05 sec YUSEF(V,D): 2.0 cm2 LV V1 max P.2 mmHg PA V2 max: 109.9 cm/sec LV V1 max: 88.8 cm/sec PA max P.8 mmHg Med Peak E' En: 6.6 cm/sec PI Vmax: 138.5 cm/sec Med E/e': 9.4 Lat Peak E' En: 8.2 cm/sec Lat E/e': 7.6 Procedure A two-dimensional transthoracic echocardiogram with color flow and Doppler was performed. Left Ventricle The left ventricular size, thickness and function are normal. The left ventricular ejection fraction is normal. E/A reversal consistent with but not diagnostic of poor LV compliance. The left ventricular w all motion is normal. Right Ventricle The right ventricle is normal in size and function. Atria Normal left and right atrial size and function. Mitral Valve There is mild mitral valve thickening. There is no mitral valve stenosis. There is trace to mild mitr al regurgitation. Tricuspid Valve There is mild tricuspid valve thickening. There is no tricuspid stenosis. There was insufficient TR d etected to calculate RV systolic pressure. Aortic Valve The aortic valve is normal in structure and function. No hemodynamically significant valvular aortic stenosis. No aortic regurgitation is present. Pulmonic Valve The pulmonic valve is not well visualized. There is no pulmonic valvular stenosis. Mild pulmonic valv ular regurgitation. Great Vessels The aortic root is normal size. Pericardium/Pleura There is no pericardial effusion. Interpretation Summary The left ventricular size, thickness and function are normal The left ventricular ejection fraction is normal. The left ventricular wall motion is normal. E/A reversal consistent with but not diagnostic of poor LV compliance There is trace to mild mitral regurgitation. There was insufficient TR detected to calculate RV systolic pressure. MD Cresencio Boykin 05/25/2019 02:09 PM
[2019-05-25 14:41] LABS: URINE APPEARANCE CLOUDY; URINE BILIRUBIN NEGATIVE (NEGATIVE); URINE COLOR YELLOW; URINE GLUCOSE (UA) NEGATIVE (NEGATIVE); URINE KETONE NEGATIVE (NEGATIVE); URINE LEUK ESTERASE NEGATIVE (NEGATIVE); URINE NITRITE NEGATIVE (NEGATIVE); URINE PROTEIN NEGATIVE (NEGATIVE)
[2019-05-25] MEDS ORDERED: PIPERACILLIN/TAZOBACTAM 3.375 GM VIAL IVPB ONE (17:03)
[2019-05-25] MEDS ORDERED: DEXTROSE 5%-WATER - 50 ML IVPB ONE (17:03)
[2019-05-25] MEDS: PIPERACILLIN/TAZOB 3.375 GM 3.375 GM in DEXTROSE 5%-WATER - 50 ML IVPB SCH (17:28)
[2019-05-25] MEDS ORDERED: PIPERACILLIN/TAZOB 3.375 GM 3.375 GM in DEXTROSE 5%-WATER - 50 ML IVPB SCH (18:00)
[2019-05-25] MEDS: MONTELUKAST NA 10 MG TABLET PO SCH (21:54)
[2019-05-25] MEDS: OLANZapine 2.5 MG TABLET PO SCH (21:56)
[2019-05-25] MEDS: ZOLPIDEM TARTRATE 5 MG TABLET PO PRN (22:05)
[2019-05-26] MEDS: diphenhydrAMINE HCL 25 MG CAPSULE (FP) PO PRN ×3 (00:30→14:44)
[2019-05-26] MEDS ORDERED: DEXTROSE 5%-WATER - 50 ML IVPB ONE ×3 (01:07→17:11)
[2019-05-26] MEDS ORDERED: PIPERACILLIN/TAZOBACTAM 3.375 GM VIAL IVPB ONE ×3 (01:07→17:11)
[2019-05-26] MEDS: PIPERACILLIN/TAZOB 3.375 GM 3.375 GM in DEXTROSE 5%-WATER - 50 ML IVPB SCH ×3 (01:15→17:44)
[2019-05-26] MEDS: ACETAMINOPHEN 325 MG TABLET (FP) PO PRN (04:52)
[2019-05-26] MEDS: LEVOTHYROXINE NA 75 MCG TABLET (FP) PO SCH (05:46)
[2019-05-26] MEDS: HYDROmorphone HCL 2 MG TABLET PO PRN ×4 (05:46→23:28)
[2019-05-26] MEDS: SODIUM BICARBONATE 650 MG TABLET PO SCH ×3 (05:46→22:20)
[2019-05-26] MEDS: DOCUSATE SODIUM 100 MG CAPSULE (FP) PO SCH ×3 (05:47→22:20)
[2019-05-26] MEDS: INSULIN SLIDING SCALE (NOVOLOG) 1 VIAL SQ SCH ×3 (06:13→16:41)
[2019-05-26] MEDS: ALBUTEROL SO4 2.5/IPRATROPIUM 0.5 INH SOL 3 ML VIAL.NEB. NEB SCH ×3 (07:42→20:29)
[2019-05-26] MEDS ORDERED: PT OWN MED DRAWER 7, Y5N ONE (08:45)
--- NOTE | 2019-05-26 09:30 | PN ---
Progress Note (short form) - Note Progress Note: PULMONARY Continues to have intermittent low grade temps. Still with cough with thick sputum but CXR clear. Vital Signs Period Temp Pulse Resp BP Sys/Dan Pulse Ox Last 24 Hr 98.1 F-100 F 102-116 18-22 90-114/58-75 100 Gen: NAD at rest Heart: RRR Lung: scattered rhonchi Abd: soft, nontender Ext: + edema CBC, BMP 05/25/19 06:32 05/25/19 06:32 Active Medications Acetaminophen (Tylenol -) 650 mg PO Q6H PRN PRN Reason: FEVER Last Admin: 05/26/19 04:52 Dose: 650 mg Albuterol Sulfate (Ventolin Hfa Inhaler -) 2 puff IH Q4H PRN PRN Reason: SHORT OF BREATH/WHEEZING Albuterol/Ipratropium (Duoneb -) 1 amp NEB RTID [facility] Last Admin: 05/26/19 07:42 Dose: 1 amp Alprazolam (Xanax -) 0.25 mg PO Q8H PRN PRN Reason: ANXIETY Last Admin: 05/25/19 22:05 Dose: 0.25 mg Apixaban (Eliquis -) 5 mg PO BID [facility] Last Admin: 05/25/19 21:54 Dose: 5 mg Bacitracin (Bacitracin -) 1 applic TP DAILY [facility] Last Admin: 05/25/19 11:05 Dose: Not Given Bismuth Subsalicylate (Pepto-Bismol -) 524 mg PO BID PRN PRN Reason: DIARRHEA Last Admin: 05/21/19 11:14 Dose: 524 mg Buspirone HCl (Buspar -) 10 mg PO BID [facility] Last Admin: 05/25/19 21:54 Dose: 10 mg Cholecalciferol (Vitamin D3 -) 1,000 unit PO DAILY [facility] Last Admin: 05/25/19 11:04 Dose: 1,000 unit Clotrimazole (Lotrimin 1% Cream -) 1 applic TP BID [facility] Last Admin: 05/25/19 21:55 Dose: Not Given Diphenhydramine HCl (Benadryl -) 25 mg PO Q6H PRN PRN Reason: FOR ITCHING Last Admin: 05/26/19 08:48 Dose: 25 mg Docusate Sodium (Colace -) 100 mg PO TID [facility] Last Admin: 05/26/19 05:47 Dose: Not Given Emollient Ointment (Aquaphor -) 1 applic TP TID PRN PRN Reason: INCONTINENT DERMATITIS Last Admin: 05/22/19 10:25 Dose: 1 applic Ferrous Sulfate (Feosol -) 325 mg PO BID [facility] Last Admin: 05/25/19 21:54 Dose: 325 mg Hydromorphone HCl (Dilaudid -) 2 mg PO Q6H PRN PRN Reason: PAIN LEVEL 6-10 Last Admin: 05/26/19 05:46 Dose: 2 mg Piperacillin Sod/Tazobactam (Sod 3.375 gm/ Dextrose) 50 mls @ 100 mls/hr IVPB Q8H-IV [facility]; Protocol Last Admin: 05/26/19 01:15 Dose: 100 mls/hr Insulin Aspart (Novolog Vial Sliding Scale -) 1 vial SQ ACHS [facility]; Protocol Last Admin: 05/26/19 06:13 Dose: Not Given Lactobacillus Acidophilus (Bacid -) 1 tab PO DAILY [facility] Last Admin: 05/25/19 11:04 Dose: 1 tab Levothyroxine Sodium (Synthroid -) 75 mcg PO DAILY@0600 [facility] Last Admin: 05/26/19 05:46 Dose: 75 mcg Loperamide HCl (Imodium -) 2 mg PO Q8H PRN PRN Reason: DIARRHEA Last Admin: 05/21/19 22:05 Dose: 2 mg Montelukast Sodium (Singulair -) 10 mg PO HS [facility] Last Admin: 05/25/19 21:54 Dose: 10 mg Multivit/Ca Carb/B Cmplx/FA/Prenat (Nephro-Héctor -) 1 tablet PO DAILY [facility] Last Admin: 05/25/19 11:04 Dose: 1 tablet Nystatin (Nystop Powder -) 1 applic TP DAILY [facility] Last Admin: 05/25/19 11:06 Dose: 1 applic Olanzapine (Zyprexa -) 2.5 mg PO HS [facility] Last Admin: 05/25/19 21:56 Dose: 2.5 mg Potassium Chloride (K-Dur -) 20 meq PO DAILY [facility] Last Admin: 05/25/19 11:04 Dose: 20 meq Ranitidine HCl (Zantac -) 150 mg PO DAILY [facility] Last Admin: 05/25/19 11:04 Dose: 150 mg Rosuvastatin Calcium (Crestor -) 10 mg PO DAILY [facility] Last Admin: 05/25/19 11:04 Dose: 10 mg Sodium Bicarbonate (Sodium Bicarbonate -) 650 mg PO TID [facility] Last Admin: 05/26/19 05:46 Dose: 650 mg Topiramate (Topamax -) 100 mg PO DAILY [facility] Last Admin: 05/25/19 11:04 Dose: 100 mg Venlafaxine HCl (Effexor Xr -) 75 mg PO DAILY [facility] Last Admin: 05/25/19 11:04 Dose: 75 mg Zolpidem Tartrate (Ambien -) 5 mg PO HS PRN PRN Reason: INSOMNIA Last Admin: 05/25/19 22:05 Dose: 5 mg A/P s/p Fall Bilateral Proximal Tibial/Fibula Fractures r/o UTI r/o Acute Bronchitis COPD Chronic Hypoxic Respiratory Failure Atrial Fibrillation HTN Hyperlipidemia h/o Uterine Ca Anemia - continue antibiotics per ID - f/u cultures - pain control - inhaled bronchodilators - O2 to keep Spo2 >90% - DVT prophylaxis
[2019-05-26] MEDS: ALPRAZolam 0.25 MG TABLET PO PRN ×2 (10:00→22:20)
[2019-05-26] MEDS: APIXABAN 5 MG TABLET PO SCH ×2 (10:01→22:20)
[2019-05-26] MEDS: TOPIRAMATE 100 MG TABLET PO SCH (10:01)
[2019-05-26] MEDS: CHOLECALCIFEROL (VIT D3) 1,000 UNIT (25 MCG) TABLET PO SCH (10:01)
[2019-05-26] MEDS: VENLAFAXINE HCL 75 MG E.R. CAPSULES (FP) PO SCH (10:01)
[2019-05-26] MEDS: POTASSIUM CHLORIDE TABS 20 MEQ TABLET.ER (FP) PO SCH (10:01)
[2019-05-26] MEDS: ROSUVASTATIN CA 10 MG TABLET (FP) PO SCH (10:01)
[2019-05-26] MEDS: RANITIDINE HCL 150 MG TABLET (FP) PO SCH (10:01)
[2019-05-26] MEDS: VITAMIN B COMP W-C 1 EA TABLET PO SCH (10:01)
[2019-05-26] MEDS: LACTOBACILLUS ACIDOPHILUS 1 TABLET PO SCH (10:01)
[2019-05-26] MEDS: FERROUS SO4 325 MG TABLET (FP) PO SCH ×2 (10:01→22:20)
[2019-05-26] MEDS: CLOTRIMAZOLE 1% CREAM 15 GM TUBE TP SCH ×2 (10:04→22:20)
[2019-05-26] MEDS: NYSTATIN POWDER 100,000 UNITS/GM - 15 GM TOPICAL POWDER TP SCH (10:04)
[2019-05-26] MEDS: BACITRACIN 15 GM TUBE TOPICAL OINTMENT TP SCH (10:13)
[2019-05-26] MEDS: busPIRone HCL 10 MG TABLET (FP) PO SCH ×2 (10:52→22:20)
[2019-05-26] MEDS ORDERED: INSULIN (NOVOLOG) ASPART 100 UNITS/ML 10ML VIAL ONE (16:39)
--- NOTE | 2019-05-26 18:01 | PN ---
Progress Note, Physician Chief Complaint: s/p Fall Bilateral Proximal Tibial/Fibula Fractures r/o UTI r/o Acute Bronchitis COPD Chronic Hypoxic Respiratory Failure Atrial Fibrillation HTN Hyperlipidemia h/o Uterine Ca Anemia - Current Medication List Current Medications: Active Medications Acetaminophen (Tylenol -) 650 mg PO Q6H PRN PRN Reason: FEVER Last Admin: 05/26/19 04:52 Dose: 650 mg Albuterol Sulfate (Ventolin Hfa Inhaler -) 2 puff IH Q4H PRN PRN Reason: SHORT OF BREATH/WHEEZING Albuterol/Ipratropium (Duoneb -) 1 amp NEB RTID [facility] Last Admin: 05/26/19 14:30 Dose: 1 amp Alprazolam (Xanax -) 0.25 mg PO Q8H PRN PRN Reason: ANXIETY Last Admin: 05/26/19 10:00 Dose: 0.25 mg Apixaban (Eliquis -) 5 mg PO BID [facility] Last Admin: 05/26/19 10:01 Dose: 5 mg Bacitracin (Bacitracin -) 1 applic TP DAILY [facility] Last Admin: 05/26/19 10:13 Dose: Not Given Bismuth Subsalicylate (Pepto-Bismol -) 524 mg PO BID PRN PRN Reason: DIARRHEA Last Admin: 05/21/19 11:14 Dose: 524 mg Buspirone HCl (Buspar -) 10 mg PO BID [facility] Last Admin: 05/26/19 10:52 Dose: 10 mg Cholecalciferol (Vitamin D3 -) 1,000 unit PO DAILY [facility] Last Admin: 05/26/19 10:01 Dose: 1,000 unit Clotrimazole (Lotrimin 1% Cream -) 1 applic TP BID [facility] Last Admin: 05/26/19 10:04 Dose: 1 applic Diphenhydramine HCl (Benadryl -) 25 mg PO Q6H PRN PRN Reason: FOR ITCHING Last Admin: 05/26/19 14:44 Dose: 25 mg Docusate Sodium (Colace -) 100 mg PO TID [facility] Last Admin: 05/26/19 14:12 Dose: Not Given Emollient Ointment (Aquaphor -) 1 applic TP TID PRN PRN Reason: INCONTINENT DERMATITIS Last Admin: 05/22/19 10:25 Dose: 1 applic Ferrous Sulfate (Feosol -) 325 mg PO BID [facility] Last Admin: 05/26/19 10:01 Dose: 325 mg Hydromorphone HCl (Dilaudid -) 2 mg PO Q6H PRN PRN Reason: PAIN LEVEL 6-10 Last Admin: 05/26/19 17:43 Dose: 2 mg Piperacillin Sod/Tazobactam (Sod 3.375 gm/ Dextrose) 50 mls @ 100 mls/hr IVPB Q8H-IV [facility]; Protocol Last Admin: 05/26/19 17:44 Dose: 100 mls/hr Insulin Aspart (Novolog Vial Sliding Scale -) 1 vial SQ ACHS [facility]; Protocol Last Admin: 05/26/19 16:41 Dose: 2 units Lactobacillus Acidophilus (Bacid -) 1 tab PO DAILY [facility] Last Admin: 05/26/19 10:01 Dose: 1 tab Levothyroxine Sodium (Synthroid -) 75 mcg PO DAILY@0600 [facility] Last Admin: 05/26/19 05:46 Dose: 75 mcg Loperamide HCl (Imodium -) 2 mg PO Q8H PRN PRN Reason: DIARRHEA Last Admin: 05/21/19 22:05 Dose: 2 mg Montelukast Sodium (Singulair -) 10 mg PO HS [facility] Last Admin: 05/25/19 21:54 Dose: 10 mg Multivit/Ca Carb/B Cmplx/FA/Prenat (Nephro-Héctor -) 1 tablet PO DAILY [facility] Last Admin: 05/26/19 10:01 Dose: 1 tablet Nystatin (Nystop Powder -) 1 applic TP DAILY [facility] Last Admin: 05/26/19 10:04 Dose: 1 applic Olanzapine (Zyprexa -) 2.5 mg PO HS [facility] Last Admin: 05/25/19 21:56 Dose: 2.5 mg Potassium Chloride (K-Dur -) 20 meq PO DAILY [facility] Last Admin: 05/26/19 10:01 Dose: 20 meq Ranitidine HCl (Zantac -) 150 mg PO DAILY [facility] Last Admin: 05/26/19 10:01 Dose: 150 mg Rosuvastatin Calcium (Crestor -) 10 mg PO DAILY [facility] Last Admin: 05/26/19 10:01 Dose: 10 mg Sodium Bicarbonate (Sodium Bicarbonate -) 650 mg PO TID [facility] Last Admin: 05/26/19 14:12 Dose: 650 mg Topiramate (Topamax -) 100 mg PO DAILY [facility] Last Admin: 05/26/19 10:01 Dose: 100 mg Venlafaxine HCl (Effexor Xr -) 75 mg PO DAILY [facility] Last Admin: 05/26/19 10:01 Dose: 75 mg Zolpidem Tartrate (Ambien -) 5 mg PO HS PRN PRN Reason: INSOMNIA Last Admin: 05/25/19 22:05 Dose: 5 mg - Objective Vital Signs: Vital Signs Temperature 98.3 F 05/26/19 15:36 Pulse Rate 81 05/26/19 15:36 Respiratory Rate 20 05/26/19 15:36 Blood Pressure 104/65 05/26/19 15:36 O2 Sat by Pulse Oximetry (%) 100 05/25/19 21:00 Constitutional: Yes: Well Nourished, No Distress, Calm Cardiovascular: Yes: Regular Rate and Rhythm Respiratory: Yes: Rhonchi (diffuse), Other (trach collar) Gastrointestinal: Yes: Normal Bowel Sounds, Soft Genitourinary: Yes: Incontinence Musculoskeletal: Yes: WNL Extremities: Yes: WNL Edema: No Peripheral Pulses WNL: Yes Neurological: Yes: Alert, Oriented Psychiatric: Yes: Alert, Oriented Labs: CBC, BMP 05/25/19 06:32 05/25/19 06:32 INR, PTT INR 1.07 (0.83-1.09) 05/15/19 03:00 Problem List - Problems (1) Anemia Assessment/Plan: -chronic, stable -monitor trend Code(s): D64.9 - ANEMIA, UNSPECIFIED (2) Diabetes Assessment/Plan: -last A1c-4.0 Code(s): E11.9 - TYPE 2 DIABETES MELLITUS WITHOUT COMPLICATIONS (3) Fever Assessment/Plan: -ID on board -IV abx -Source unknown -Cultures: Microbiology 05/23/19 12:25 Blood - Peripheral Venous Blood Culture - Preliminary NO GROWTH OBTAINED AFTER 72 HOURS, INCUBATION TO CONTINUE FOR 2 DAYS. 05/23/19 12:30 Blood - Peripheral Venous Blood Culture - Preliminary NO GROWTH OBTAINED AFTER 72 HOURS, INCUBATION TO CONTINUE FOR 2 DAYS. 05/25/19 12:04 Urine - Urine - Catheterized Urine Culture - Preliminary Staphylococcus Latex Coag Pos 05/24/19 11:45 Urine - Urine Clean Catch Urine Culture - Final Contaminated: Please Repeat 05/20/19 19:44 Stool Salmonella/Shigella Culture - Final NO GROWTH OF SALMONELLA OR SHIGELLA SPECIES OBTAINED 05/20/19 19:44 Stool Campylobacter Culture - Final NO GROWTH OF CAMPYLOBACTER SPECIES OBTAINED 05/20/19 19:44 Stool Yersinia Culture - Final NO GROWTH OF YERSINIA SPECIES OBTAINED 05/20/19 19:44 Stool Vibrio Culture - Final NO GROWTH OF VIBRIO SPECIES OBTAINED 05/20/19 19:44 Stool Escherichia coli 0157 Culture - Final NO GROWTH OF E COLI 0157 OBTAINED Code(s): R50.9 - FEVER, UNSPECIFIED (4) Sepsis Code(s): A41.9 - SEPSIS, UNSPECIFIED ORGANISM Qualifiers: Sepsis type: sepsis due to unspecified organism Qualified Code(s): A41.9 - Sepsis, unspecified organism (5) Bilateral closed proximal tibial fracture Assessment/Plan: -Ortho consult noted -pain control -Xray shows acute fracture proximal one third tibial diametaphysis, cannot exclude injury in tibial plateau Code(s): S82.101A - UNSP FRACTURE OF UPPER END OF RIGHT TIBIA, INIT FOR CLOS FX ; S82.102A - UNSP FRACTURE OF UPPER END OF LEFT TIBIA, INIT FOR CLOS FX (6) Acute and chronic respiratory failure with hypoxia Assessment/Plan: -O2 via trach collar -bronchodilators -Montelukast -keep SpO2 >90% Code(s): J96.21 - ACUTE AND CHRONIC RESPIRATORY FAILURE WITH HYPOXIA (7) Afib Assessment/Plan: -On Eliquis Code(s): I48.91 - UNSPECIFIED ATRIAL FIBRILLATION Qualifiers: Atrial fibrillation type: chronic Qualified Code(s): I48.2 - Chronic atrial fibrillation Assessment/Plan See problem list
[2019-05-26] MEDS: ZOLPIDEM TARTRATE 5 MG TABLET PO PRN (22:20)
[2019-05-26] MEDS: MONTELUKAST NA 10 MG TABLET PO SCH (22:20)
[2019-05-26] MEDS: OLANZapine 2.5 MG TABLET PO SCH (22:20)
[2019-05-26] MEDS ORDERED: INSULIN (NOVOLOG) ASPART 100 UNITS/ML 10ML VIAL SQ ONE (23:43)
[2019-05-27] MEDS: diphenhydrAMINE HCL 25 MG CAPSULE (FP) PO PRN ×3 (01:47→23:05)
[2019-05-27] MEDS ORDERED: PIPERACILLIN/TAZOBACTAM 3.375 GM VIAL IVPB ONE ×2 (02:11→09:13)
[2019-05-27] MEDS ORDERED: DEXTROSE 5%-WATER - 50 ML IVPB ONE ×2 (02:12→09:13)
[2019-05-27] MEDS: PIPERACILLIN/TAZOB 3.375 GM 3.375 GM in DEXTROSE 5%-WATER - 50 ML IVPB SCH ×2 (02:36→09:18)
[2019-05-27] MEDS: SODIUM BICARBONATE 650 MG TABLET PO SCH ×3 (05:56→21:46)
[2019-05-27] MEDS: LEVOTHYROXINE NA 75 MCG TABLET (FP) PO SCH (05:56)
[2019-05-27] MEDS: HYDROmorphone HCL 2 MG TABLET PO PRN ×3 (05:57→18:16)
[2019-05-27] MEDS: DOCUSATE SODIUM 100 MG CAPSULE (FP) PO SCH ×3 (05:57→21:46)
[2019-05-27] MEDS: INSULIN SLIDING SCALE (NOVOLOG) 1 VIAL SQ SCH ×2 (06:03→16:40)
[2019-05-27] MEDS: ALBUTEROL SO4 2.5/IPRATROPIUM 0.5 INH SOL 3 ML VIAL.NEB. NEB SCH ×3 (07:52→20:19)
[2019-05-27] MEDS ORDERED: PT OWN MED DRAWER 7, Y5N ONE (09:12)
[2019-05-27] MEDS: APIXABAN 5 MG TABLET PO SCH ×2 (09:15→21:47)
[2019-05-27] MEDS: VITAMIN B COMP W-C 1 EA TABLET PO SCH (09:15)
[2019-05-27] MEDS: FERROUS SO4 325 MG TABLET (FP) PO SCH ×2 (09:16→22:39)
[2019-05-27] MEDS: TOPIRAMATE 100 MG TABLET PO SCH (09:16)
[2019-05-27] MEDS: ACETAMINOPHEN 325 MG TABLET (FP) PO PRN (09:16)
[2019-05-27] MEDS: ROSUVASTATIN CA 10 MG TABLET (FP) PO SCH (09:16)
[2019-05-27] MEDS: POTASSIUM CHLORIDE TABS 20 MEQ TABLET.ER (FP) PO SCH (09:16)
[2019-05-27] MEDS: ALPRAZolam 0.25 MG TABLET PO PRN ×2 (09:16→21:46)
[2019-05-27] MEDS: RANITIDINE HCL 150 MG TABLET (FP) PO SCH (09:16)
[2019-05-27] MEDS: CHOLECALCIFEROL (VIT D3) 1,000 UNIT (25 MCG) TABLET PO SCH (09:16)
[2019-05-27] MEDS: LACTOBACILLUS ACIDOPHILUS 1 TABLET PO SCH (09:16)
[2019-05-27] MEDS: BACITRACIN 15 GM TUBE TOPICAL OINTMENT TP SCH (09:17)
[2019-05-27] MEDS: CLOTRIMAZOLE 1% CREAM 15 GM TUBE TP SCH ×2 (09:18→21:49)
[2019-05-27] MEDS: NYSTATIN POWDER 100,000 UNITS/GM - 15 GM TOPICAL POWDER TP SCH (09:18)
[2019-05-27] MEDS: busPIRone HCL 10 MG TABLET (FP) PO SCH ×2 (09:19→21:46)
--- NOTE | 2019-05-27 10:24 | PN ---
Progress Note (short form) - Note Progress Note: agreed to iv placement and cxray today now on iv zosyn fevers resolving on zosyn (empiric) Vital Signs Period Temp Pulse Resp BP Sys/Dan Pulse Ox Last 24 Hr 98.2 F-98.7 F 81-110 20-20 104-114/65-77 cor-rrr lungs decreased bs at bases abd soft,nt ext bilateral castrs CBC, BMP 05/25/19 06:32 05/25/19 06:32 Microbiology 05/23/19 12:25 Blood - Peripheral Venous Blood Culture - Preliminary NO GROWTH OBTAINED AFTER 72 HOURS, INCUBATION TO CONTINUE FOR 2 DAYS. 05/23/19 12:30 Blood - Peripheral Venous Blood Culture - Preliminary NO GROWTH OBTAINED AFTER 72 HOURS, INCUBATION TO CONTINUE FOR 2 DAYS. 05/25/19 12:04 Urine - Urine - Catheterized Urine Culture - Preliminary Staphylococcus Latex Coag Pos 05/24/19 11:45 Urine - Urine Clean Catch Urine Culture - Final Contaminated: Please Repeat 05/20/19 19:44 Stool Salmonella/Shigella Culture - Final NO GROWTH OF SALMONELLA OR SHIGELLA SPECIES OBTAINED 05/20/19 19:44 Stool Campylobacter Culture - Final NO GROWTH OF CAMPYLOBACTER SPECIES OBTAINED 05/20/19 19:44 Stool Yersinia Culture - Final NO GROWTH OF YERSINIA SPECIES OBTAINED 05/20/19 19:44 Stool Vibrio Culture - Final NO GROWTH OF VIBRIO SPECIES OBTAINED 05/20/19 19:44 Stool Escherichia coli 0157 Culture - Final NO GROWTH OF E COLI 0157 OBTAINED cxray improved, no focal infiltrate a/p intermittent fevers resolved zosyn day #2 s/p bilateral tib/fib fractures f/u urine culture Problem List - Problems (1) Fever Code(s): R50.9 - FEVER, UNSPECIFIED (2) Bilateral tibial fractures Code(s): S82.201A - UNSP FRACTURE OF SHAFT OF RIGHT TIBIA, INIT FOR CLOS FX; S82.202A - UNSP FRACTURE OF SHAFT OF LEFT TIBIA, INIT FOR CLOS FX (3) Bilateral fibular fractures Code(s): S82.401A - UNSP FRACTURE OF SHAFT OF RIGHT FIBULA, INIT FOR CLOS FX; S82.402A - UNSP FRACTURE OF SHAFT OF LEFT FIBULA, INIT FOR CLOS FX (4) Chronic respiratory failure Code(s): J96.10 - CHRONIC RESPIRATORY FAILURE, UNSP W HYPOXIA OR HYPERCAPNIA (5) Diabetes Code(s): E11.9 - TYPE 2 DIABETES MELLITUS WITHOUT COMPLICATIONS
[2019-05-27] MEDS: VENLAFAXINE HCL 75 MG E.R. CAPSULES (FP) PO SCH (10:57)
--- NOTE | 2019-05-27 11:07 | PN ---
Progress Note (short form) - Note Progress Note: PULMONARY CHART REVIEWED TOLERATING TRACH WITH PMV VSS/Afebrile Gen: NAD at rest Heart: RRR Lung: scattered rhonchi Abd: soft, nontender Ext: + edema A/P s/p Fall Bilateral Proximal Tibial/Fibula Fractures r/o UTI r/o Acute Bronchitis COPD Chronic Hypoxic Respiratory Failure Atrial Fibrillation HTN Hyperlipidemia h/o Uterine Ca Anemia - continue antibiotics per ID - f/u cultures - pain control - inhaled bronchodilators - O2 to keep Spo2 >90% - DVT prophylaxis Sreedhar SEXTON MD
--- NOTE | 2019-05-27 16:21 | PN ---
Progress Note, Physician Chief Complaint: s/p Fall Bilateral Proximal Tibial/Fibula Fractures r/o UTI r/o Acute Bronchitis COPD Chronic Hypoxic Respiratory Failure Atrial Fibrillation HTN Hyperlipidemia h/o Uterine Ca Anemia History of Present Illness: NADStraight cath UA UC negative IV abx discontinued afebrile - Current Medication List Current Medications: Active Medications Acetaminophen (Tylenol -) 650 mg PO Q6H PRN PRN Reason: FEVER Last Admin: 05/27/19 09:16 Dose: 650 mg Albuterol Sulfate (Ventolin Hfa Inhaler -) 2 puff IH Q4H PRN PRN Reason: SHORT OF BREATH/WHEEZING Albuterol/Ipratropium (Duoneb -) 1 amp NEB RTID [facility] Last Admin: 05/27/19 13:51 Dose: 1 amp Alprazolam (Xanax -) 0.25 mg PO Q8H PRN PRN Reason: ANXIETY Last Admin: 05/27/19 09:16 Dose: 0.25 mg Apixaban (Eliquis -) 5 mg PO BID [facility] Last Admin: 05/27/19 09:15 Dose: 5 mg Bacitracin (Bacitracin -) 1 applic TP DAILY [facility] Last Admin: 05/27/19 09:17 Dose: Not Given Bismuth Subsalicylate (Pepto-Bismol -) 524 mg PO BID PRN PRN Reason: DIARRHEA Last Admin: 05/21/19 11:14 Dose: 524 mg Buspirone HCl (Buspar -) 10 mg PO BID [facility] Last Admin: 05/27/19 09:19 Dose: 10 mg Cholecalciferol (Vitamin D3 -) 1,000 unit PO DAILY [facility] Last Admin: 05/27/19 09:16 Dose: 1,000 unit Clotrimazole (Lotrimin 1% Cream -) 1 applic TP BID [facility] Last Admin: 05/27/19 09:18 Dose: 1 applic Diphenhydramine HCl (Benadryl -) 25 mg PO Q6H PRN PRN Reason: FOR ITCHING Last Admin: 05/27/19 14:23 Dose: 25 mg Docusate Sodium (Colace -) 100 mg PO TID [facility] Last Admin: 05/27/19 14:23 Dose: 100 mg Emollient Ointment (Aquaphor -) 1 applic TP TID PRN PRN Reason: INCONTINENT DERMATITIS Last Admin: 05/22/19 10:25 Dose: 1 applic Ferrous Sulfate (Feosol -) 325 mg PO BID [facility] Last Admin: 05/27/19 09:16 Dose: 325 mg Hydromorphone HCl (Dilaudid -) 2 mg PO Q6H PRN PRN Reason: PAIN LEVEL 6-10 Last Admin: 05/27/19 12:14 Dose: 2 mg Insulin Aspart (Novolog Vial Sliding Scale -) 1 vial SQ BIDAC [facility]; Protocol Last Admin: 05/27/19 06:03 Dose: Not Given Lactobacillus Acidophilus (Bacid -) 1 tab PO DAILY [facility] Last Admin: 05/27/19 09:16 Dose: 1 tab Levothyroxine Sodium (Synthroid -) 75 mcg PO DAILY@0600 [facility] Last Admin: 05/27/19 05:56 Dose: 75 mcg Loperamide HCl (Imodium -) 2 mg PO Q8H PRN PRN Reason: DIARRHEA Last Admin: 05/21/19 22:05 Dose: 2 mg Montelukast Sodium (Singulair -) 10 mg PO [facility] Last Admin: 05/26/19 22:20 Dose: 10 mg Multivit/Ca Carb/B Cmplx/FA/Prenat (Nephro-Héctor -) 1 tablet PO DAILY [facility] Last Admin: 05/27/19 09:15 Dose: 1 tablet Nystatin (Nystop Powder -) 1 applic TP DAILY [facility] Last Admin: 05/27/19 09:18 Dose: 1 applic Olanzapine (Zyprexa -) 2.5 mg PO HS [facility] Last Admin: 05/26/19 22:20 Dose: 2.5 mg Potassium Chloride (K-Dur -) 20 meq PO DAILY [facility] Last Admin: 05/27/19 09:16 Dose: 20 meq Ranitidine HCl (Zantac -) 150 mg PO DAILY [facility] Last Admin: 05/27/19 09:16 Dose: 150 mg Rosuvastatin Calcium (Crestor -) 10 mg PO DAILY [facility] Last Admin: 05/27/19 09:16 Dose: 10 mg Sodium Bicarbonate (Sodium Bicarbonate -) 650 mg PO TID [facility] Last Admin: 05/27/19 14:23 Dose: 650 mg Topiramate (Topamax -) 100 mg PO DAILY [facility] Last Admin: 05/27/19 09:16 Dose: 100 mg Venlafaxine HCl (Effexor Xr -) 75 mg PO DAILY [facility] Last Admin: 05/27/19 10:57 Dose: 75 mg Zolpidem Tartrate (Ambien -) 5 mg PO HS PRN PRN Reason: INSOMNIA Last Admin: 05/26/19 22:20 Dose: 5 mg - Objective Vital Signs: Vital Signs Temperature 98.6 F 05/27/19 15:00 Pulse Rate 101 H 05/27/19 15:00 Respiratory Rate 20 05/27/19 15:00 Blood Pressure 128/76 05/27/19 15:00 O2 Sat by Pulse Oximetry (%) 100 05/25/19 21:00 Constitutional: Yes: Well Nourished, No Distress, Calm Cardiovascular: Yes: Regular Rate and Rhythm Respiratory: Yes: Regular, Rhonchi (Diffuse), Other (trach collar) Gastrointestinal: Yes: Normal Bowel Sounds, Soft Genitourinary: Yes: Incontinence Musculoskeletal: Yes: WNL Extremities: Yes: WNL Edema: No Peripheral Pulses WNL: Yes Neurological: Yes: Alert, Oriented Psychiatric: Yes: Alert, Oriented Labs: CBC, BMP 05/25/19 06:32 05/25/19 06:32 INR, PTT INR 1.07 (0.83-1.09) 05/15/19 03:00 Problem List - Problems (1) Anemia Assessment/Plan: -chronic, stable -monitor trend Code(s): D64.9 - ANEMIA, UNSPECIFIED (2) Diabetes Assessment/Plan: -last A1c-4.0 Code(s): E11.9 - TYPE 2 DIABETES MELLITUS WITHOUT COMPLICATIONS (3) Fever Assessment/Plan: -ID on board -IV abx dc'd, observe off -afebrile -Source unknown -Cultures: Microbiology 05/23/19 12:25 Blood - Peripheral Venous Blood Culture - Preliminary NO GROWTH OBTAINED AFTER 72 HOURS, INCUBATION TO CONTINUE FOR 2 DAYS. 05/23/19 12:30 Blood - Peripheral Venous Blood Culture - Preliminary NO GROWTH OBTAINED AFTER 72 HOURS, INCUBATION TO CONTINUE FOR 2 DAYS. 05/25/19 12:04 Urine - Urine - Catheterized Urine Culture - Preliminary Staphylococcus Latex Coag Pos 05/24/19 11:45 Urine - Urine Clean Catch Urine Culture - Final Contaminated: Please Repeat 05/20/19 19:44 Stool Salmonella/Shigella Culture - Final NO GROWTH OF SALMONELLA OR SHIGELLA SPECIES OBTAINED 05/20/19 19:44 Stool Campylobacter Culture - Final NO GROWTH OF CAMPYLOBACTER SPECIES OBTAINED 05/20/19 19:44 Stool Yersinia Culture - Final NO GROWTH OF YERSINIA SPECIES OBTAINED 05/20/19 19:44 Stool Vibrio Culture - Final NO GROWTH OF VIBRIO SPECIES OBTAINED 05/20/19 19:44 Stool Escherichia coli 0157 Culture - Final NO GROWTH OF E COLI 0157 OBTAINED Code(s): R50.9 - FEVER, UNSPECIFIED (4) Sepsis Code(s): A41.9 - SEPSIS, UNSPECIFIED ORGANISM Qualifiers: Sepsis type: sepsis due to unspecified organism Qualified Code(s): A41.9 - Sepsis, unspecified organism (5) Bilateral closed proximal tibial fracture Assessment/Plan: -Ortho consult noted -pain control -Xray shows acute fracture proximal one third tibial diametaphysis, cannot exclude injury in tibial plateau Code(s): S82.101A - UNSP FRACTURE OF UPPER END OF RIGHT TIBIA, INIT FOR CLOS FX ; S82.102A - UNSP FRACTURE OF UPPER END OF LEFT TIBIA, INIT FOR CLOS FX (6) Acute and chronic respiratory failure with hypoxia Assessment/Plan: -O2 via trach collar -bronchodilators -Montelukast -keep SpO2 >90% -Pulmonary on board Code(s): J96.21 - ACUTE AND CHRONIC RESPIRATORY FAILURE WITH HYPOXIA (7) Afib Assessment/Plan: -On Eliquis Code(s): I48.91 - UNSPECIFIED ATRIAL FIBRILLATION Qualifiers: Atrial fibrillation type: chronic Qualified Code(s): I48.2 - Chronic atrial fibrillation Assessment/Plan See problem list
[2019-05-27] MEDS: MONTELUKAST NA 10 MG TABLET PO SCH (21:46)
[2019-05-27] MEDS: OLANZapine 2.5 MG TABLET PO SCH (21:46)
[2019-05-27] MEDS: ZOLPIDEM TARTRATE 5 MG TABLET PO PRN (22:39)
[2019-05-28] MEDS: HYDROmorphone HCL 2 MG TABLET PO PRN ×4 (00:22→18:17)
[2019-05-28] MEDS: ACETAMINOPHEN 325 MG TABLET (FP) PO PRN ×2 (04:15→15:16)
[2019-05-28] MEDS: INSULIN SLIDING SCALE (NOVOLOG) 1 VIAL SQ SCH ×2 (06:26→17:45)
[2019-05-28] MEDS: LEVOTHYROXINE NA 75 MCG TABLET (FP) PO SCH (06:27)
[2019-05-28] MEDS: SODIUM BICARBONATE 650 MG TABLET PO SCH ×3 (06:27→21:47)
[2019-05-28] MEDS: DOCUSATE SODIUM 100 MG CAPSULE (FP) PO SCH ×3 (06:27→21:50)
[2019-05-28] MEDS: ALBUTEROL SO4 2.5/IPRATROPIUM 0.5 INH SOL 3 ML VIAL.NEB. NEB SCH ×3 (07:49→20:09)
--- NOTE | 2019-05-28 10:11 | DS ---
Physical Examination Vital Signs: Vital Signs Temperature 98.8 F 05/28/19 07:31 Pulse Rate 75 05/28/19 07:31 Respiratory Rate 20 05/28/19 07:31 Blood Pressure 132/74 05/28/19 07:31 O2 Sat by Pulse Oximetry (%) 100 05/25/19 21:00 Findings/Remarks: This is a 53 y/o woman with a PMHx of HTN, HLD, Afib, COPD (O2 dependent) s/p Trach, Asthma, GI Bleed, Uterine Ca. Who presents to the ED s/p fall with knee pain and unable to ambulate. Patient reports falling out of a cab onto her knees yesterday. Patient denies head trauma or LOC. Patient denies fever, chills , dizziness, COX, CP, palpitations, AP, N/V/D, dysuria. Constitutional: Yes: Well Nourished, No Distress, Calm Cardiovascular: Yes: Regular Rate and Rhythm Respiratory: Yes: Regular, Rhonchi, Other (trach collar) Gastrointestinal: Yes: WNL Renal/: Yes: Incontinence Musculoskeletal: Yes: WNL, Muscle Weakness Extremities: Yes: WNL Edema: No Peripheral Pulses WNL: Yes Neurological: Yes: Alert, Oriented Psychiatric: Yes: Alert, Oriented Labs: CBC, BMP 05/25/19 06:32 05/25/19 06:32 Discharge Summary Reason For Visit: FRACTURE OF PROXIMAL EN OF TIBIA Current Active Problems Bilateral closed proximal tibial fracture (Acute) Bilateral fibular fractures (Acute) Bilateral tibial fractures (Acute) Fatty liver (Acute) Hemarthrosis (Acute) History of Clostridioides difficile colitis (Acute) 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 (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) Sleep apnea (Acute) Tibial plateau fracture (Acute) Hospital Course: Laboratory Last Values WBC 8.1 K/mm3 (4.0-10.0) 05/25/19 06:32 RBC 3.01 M/mm3 (3.60-5.2) L 05/25/19 06:32 Hgb 9.1 GM/dL (10.7-15.3) L 05/25/19 06:32 Hct 28.7 % (34.0-46.6) L 05/25/19 06:32 MCV 92.8 fl (80-96) 05/25/19 06:32 MCH 30.2 pg (25.7-33.7) 05/25/19 06:32 MCHC 32.6 g/dl (32.0-36.0) 05/25/19 06:32 RDW 15.6 % (11.6-15.6) 05/25/19 06:32 Plt Count 361 K/MM3 (134-434) 05/25/19 06:32 MPV 9.1 fl (7.5-11.1) 05/25/19 06:32 Absolute Neuts (auto) 5.5 K/mm3 (1.5-8.0) 05/25/19 06:32 Neutrophils % 68.7 % (42.8-82.8) 05/25/19 06:32 Lymphocytes % 15.3 % (8-40) 05/25/19 06:32 Monocytes % 8.9 % (3.8-10.2) 05/25/19 06:32 Eosinophils % 6.3 % (0-4.5) H 05/25/19 06:32 Basophils % 0.8 % (0-2.0) 05/25/19 06:32 Nucleated RBC % 0 % (0-0) 05/25/19 06:32 PT with INR 12.60 SEC (9.7-13.0) 05/15/19 03:00 INR 1.07 (0.83-1.09) 05/15/19 03:00 PTT (Actin FS) 42.3 SECONDS (25.2-36.5) H 05/21/19 07:54 Sodium 135 mmol/L (136-145) L 05/25/19 06:32 Potassium 4.1 mmol/L (3.5-5.1) 05/25/19 06:32 Chloride 101 mmol/L (98-107) 05/25/19 06:32 Carbon Dioxide 26 mmol/L (21-32) 05/25/19 06:32 Anion Gap 9 MMOL/L (8-16) 05/25/19 06:32 BUN 15.0 mg/dL (7-18) 05/25/19 06:32 Creatinine 1.0 mg/dL (0.55-1.3) 05/25/19 06:32 Est GFR (CKD-EPI)AfAm 75.54 05/25/19 06:32 Est GFR (CKD-EPI)NonAf 65.18 05/25/19 06:32 POC Glucometer 163 UNITS (80-120) 05/28/19 05:45 Random Glucose 150 mg/dL (74-106) H 05/25/19 06:32 Lactic Acid 1.4 mmol/L (0.4-2.0) 05/27/19 10:49 Calcium 8.5 mg/dL (8.5-10.1) 05/25/19 06:32 Iron 48 ug/dL (27-159) 05/19/19 05:35 TIBC 243 ug/dL (250-450) L 05/19/19 05:35 Iron Saturation 20 % (15-55) 05/19/19 05:35 Unsaturated IBC 195 ug/dL (131-425) 05/19/19 05:35 Transferrin 181 mg/dL (200-370) L 05/19/19 05:35 Ferritin 126.8 ng/ml (8-388) 05/19/19 05:35 Total Bilirubin 0.7 mg/dL (0.2-1) 05/25/19 06:32 AST 15 U/L (15-37) 05/25/19 06:32 ALT 21 U/L (13-61) 05/25/19 06:32 Alkaline Phosphatase 161 U/L (45-117) H 05/25/19 06:32 Total Protein 6.3 g/dl (6.4-8.2) L 05/25/19 06:32 Albumin 2.6 g/dl (3.4-5.0) L 05/25/19 06:32 Vitamin B12 325 pg/ml (193-986) 05/25/19 06:32 Folate 1599 ng/mL (>498) 05/25/19 06:32 Folate Hemolysate 458.9 ng/mL (Not Estab.) 05/25/19 06:32 TSH 4.12 uIU/ml (0.358-3.74) H 05/25/19 06:32 Urine Color Yellow 05/25/19 12:04 Urine Appearance Cloudy 05/25/19 12:04 Urine pH 7.0 (5.0-8.0) 05/25/19 12:04 Ur Specific [place] 1.007 (1.010-1.035) L 05/25/19 12:04 Urine Protein Negative (NEGATIVE) 05/25/19 12:04 Urine Glucose (UA) Negative (NEGATIVE) 05/25/19 12:04 Urine Ketones Negative (NEGATIVE) 05/25/19 12:04 Urine Blood Negative (NEGATIVE) 05/25/19 12:04 Urine Nitrite Negative (NEGATIVE) 05/25/19 12:04 Urine Bilirubin Negative (NEGATIVE) 05/25/19 12:04 Urine Urobilinogen 1.0 mg/dL (0.2-1.0) 05/25/19 12:04 Ur Leukocyte Esterase Negative (NEGATIVE) 05/25/19 12:04 Urine WBC (Auto) 15 /hpf (0-5) 05/24/19 11:45 Urine RBC (Auto) 20.4 /hpf (0-4) 05/24/19 11:45 Urine Casts (Auto) 92 /lpf (0-8) 05/24/19 11:45 U Pathogenic Cast Auto None seen /lpf (NEGATIVE) 05/24/19 11:45 U Epithel Cells (Auto) >36 /HPF (0-5/HPF) 05/24/19 11:45 U Sm Round Cell (Auto) None seen 05/24/19 11:45 Urine Bacteria (Auto) 1625.2 /hpf (NEGATIVE) 05/24/19 11:45 Urine Yeast (Auto) None seen (NEGATIVE) 05/24/19 11:45 Stool Occult Blood Trace (NEGATIVE) 05/20/19 17:30 Stool O & P Wet Mount (.) 05/20/19 19:44 O & P Permanent Slide Final report (.) 05/20/19 19:44 Blood Type A POSITIVE 05/18/19 11:09 Antibody Screen Negative 05/18/19 11:09 Crossmatch See Detail 05/18/19 11:09 Microbiology 05/25/19 12:04 Urine - Urine - Catheterized Urine Culture - Preliminary Staphylococcus Latex Coag Pos Proteus Species 05/23/19 12:25 Blood - Peripheral Venous Blood Culture - Preliminary NO GROWTH OBTAINED AFTER 96 HOURS, INCUBATION TO CONTINUE FOR 1 DAYS. 05/23/19 12:30 Blood - Peripheral Venous Blood Culture - Preliminary NO GROWTH OBTAINED AFTER 96 HOURS, INCUBATION TO CONTINUE FOR 1 DAYS. 05/24/19 11:45 Urine - Urine Clean Catch Urine Culture - Final Contaminated: Please Repeat 05/20/19 19:44 Stool Salmonella/Shigella Culture - Final NO GROWTH OF SALMONELLA OR SHIGELLA SPECIES OBTAINED 05/20/19 19:44 Stool Campylobacter Culture - Final NO GROWTH OF CAMPYLOBACTER SPECIES OBTAINED 05/20/19 19:44 Stool Yersinia Culture - Final NO GROWTH OF YERSINIA SPECIES OBTAINED 05/20/19 19:44 Stool Vibrio Culture - Final NO GROWTH OF VIBRIO SPECIES OBTAINED 05/20/19 19:44 Stool Escherichia coli 0157 Culture - Final NO GROWTH OF E COLI 0157 OBTAINED Vital Signs Temp 98.8 F 05/28/19 07:31 Pulse 75 05/28/19 07:31 Resp 20 05/28/19 07:31 BP 132/74 05/28/19 07:31 Pulse Ox 100 05/25/19 21:00 Intake & Output 05/27/19 05/27/19 05/28/19 11:59 23:59 11:59 Intake Total 50 550 650 Balance 50 550 650 Intake: IVPB 50 50 Oral 500 650 Other: Voiding Method Incontinent Incontinent # Unmeasured Voids Void 2 3 5 Bowel Movement No Yes # Bowel Movements 1 Condition: Stable - Instructions Disposition: [facility]ILITY - Home Medications Comprehensive Discharge Medication List: Ambulatory Orders Albuterol Sulfate Inhaler - [Ventolin HFA Inhaler -] 2 puff IH Q4H PRN #0 inhaler 11/29/16 Acetaminophen [Tylenol .Regular Strength -] 650 mg PO Q6H PRN #0 tablet Apixaban [Eliquis -] 5 mg PO BID tablet 04/29/17 Rosuvastatin Calcium [Crestor] 10 mg PO DAILY 07/09/18 Montelukast Na [Singulair -] 10 mg PO HS 08/07/18 Topiramate [Topamax -] 100 mg PO DAILY #30 tablet 08/15/18 Alprazolam [Xanax] 0.25 mg PO Q8H PRN tablet MDD 3 10/23/18 Cholecalciferol (Vitamin D3) [Vitamin D3 -] 1,000 unit PO DAILY tab 11/09/18 Ferrous Sulfate [Feosol] 325 mg PO BID ud 11/09/18 Nystatin Powder [Nystop Powder -] 1 applic TP DAILY applic 11/09/18 Ranitidine [Zantac -] 150 mg PO DAILY 12/12/18 Venlafaxine HCl ER [Effexor Xr -] 75 mg PO DAILY 12/12/18 Vitamin B Comp W-C [Nephro-Héctor -] 1 tablet PO DAILY 12/12/18 Albuterol 2.5/Ipratropium 0.5 [Duoneb -] 1 amp [facility] RTID amp 12/23/18 Lactobacillus Acidophilus [Bacid -] 1 tab PO DAILY tab 12/23/18 Sodium Bicarbonate - 650 mg PO TID #30 tablet MDD 3 12/23/18 Acetaminophen [Tylenol .Regular Strength -] 650 mg PO Q6HPO PRN tablet Albuterol 2.5/Ipratropium 0.5 [Duoneb -] 1 amp [facility] RTID amp 12/31/18 Alprazolam [Xanax] 0.25 mg PO Q8H PRN tablet MDD 3 12/31/18 Apixaban [Eliquis -] 5 mg PO BID tablet 12/31/18 Buspirone HCl [Buspar -] 10 mg PO BID tablet 12/31/18 Clotrimazole [Lotrimin -] 1 applic TP BID tube 12/31/18 Diphenhydramine HCl [Benadryl Capsule -] 25 mg PO Q6H PRN capsule 12/31/18 Ferrous Sulfate [Feosol] 325 mg PO BIDWM ud 12/31/18 HYDROmorphone [Dilaudid -] 2 mg PO Q6H PRN tablet MDD 4 12/31/18 Levothyroxine [Synthroid -] 75 mcg PO DAILY@0600 tablet 12/31/18 Loperamide HCl [Imodium -] 2 mg PO Q8H PRN capsule 12/31/18 Nystatin Powder [Nystop Powder -] 1 applic TP DAILY applic 12/31/18 Venlafaxine HCl ER [Effexor Xr -] 75 mg PO DAILY@0600 cap.er.24h 12/31/18 Acetaminophen [Tylenol .Regular Strength -] 650 mg PO Q6H PRN tablet 05/28/19 Apixaban [Eliquis -] 5 mg PO BID tablet 05/28/19 Bacitracin - [Bacitracin Topical Ointment -] 1 applic TP DAILY tube 05/28/19 Bismuth Subsalicylate [Pepto-Bismol -] 524 mg PO BID PRN ud 05/28/19 Diphenhydramine HCl [Benadryl Capsule -] 25 mg PO Q6H PRN capsule 05/28/19 Docusate Sodium [Colace -] 100 mg PO TID capsule 05/28/19 HYDROmorphone [Dilaudid -] 2 mg PO Q6H PRN #120 tablet MDD 4 05/28/19 Insulin Sliding Scale [Novolog Vial Sliding Scale -] 1 vial SQ BIDAC units 05/11 Lactobacillus Acidophilus [Bacid -] 1 tab PO DAILY tab 05/28/19 Mineral Oil/Pet Hy-Phl [Aquaphor -] 1 applic TP TID PRN jar 05/28/19 Olanzapine [Zyprexa -] 2.5 mg PO HS tablet 05/28/19 Potassium Chloride [K-Dur -] 20 meq PO DAILY tablet.er 05/28/19 Zolpidem Tartrate [Ambien] 5 mg PO HS PRN #30 tablet MDD 1 05/28/19
[2019-05-28] MEDS: NYSTATIN POWDER 100,000 UNITS/GM - 15 GM TOPICAL POWDER TP SCH (10:19)
[2019-05-28] MEDS: CLOTRIMAZOLE 1% CREAM 15 GM TUBE TP SCH ×2 (10:20→21:49)
[2019-05-28] MEDS: ALPRAZolam 0.25 MG TABLET PO PRN ×2 (10:20→21:47)
[2019-05-28] MEDS: VITAMIN B COMP W-C 1 EA TABLET PO SCH (10:20)
[2019-05-28] MEDS: LACTOBACILLUS ACIDOPHILUS 1 TABLET PO SCH (10:20)
[2019-05-28] MEDS: VENLAFAXINE HCL 75 MG E.R. CAPSULES (FP) PO SCH (10:20)
[2019-05-28] MEDS: busPIRone HCL 10 MG TABLET (FP) PO SCH ×2 (10:20→21:48)
[2019-05-28] MEDS: CHOLECALCIFEROL (VIT D3) 1,000 UNIT (25 MCG) TABLET PO SCH (10:20)
[2019-05-28] MEDS: RANITIDINE HCL 150 MG TABLET (FP) PO SCH (10:20)
[2019-05-28] MEDS: APIXABAN 5 MG TABLET PO SCH ×2 (10:20→21:48)
[2019-05-28] MEDS: POTASSIUM CHLORIDE TABS 20 MEQ TABLET.ER (FP) PO SCH (10:20)
[2019-05-28] MEDS: TOPIRAMATE 100 MG TABLET PO SCH (10:20)
[2019-05-28] MEDS: FERROUS SO4 325 MG TABLET (FP) PO SCH ×2 (10:20→21:48)
[2019-05-28] MEDS: ROSUVASTATIN CA 10 MG TABLET (FP) PO SCH (10:21)
[2019-05-28] MEDS: BACITRACIN 15 GM TUBE TOPICAL OINTMENT TP SCH (10:21)
[2019-05-28] MEDS: diphenhydrAMINE HCL 25 MG CAPSULE (FP) PO PRN ×2 (13:45→21:47)
[2019-05-28] MEDS: BISMUTH SUBSALICYLATE 524 MG/30 ML UD PO PRN (15:17)
[2019-05-28] MEDS ORDERED: PT OWN MED DRAWER 7, Y5N ONE (16:56)
[2019-05-28] MEDS ORDERED: ONDANSETRON 4 MG/2 ML VIAL IVPUSH ONE (18:54)
[2019-05-28] MEDS: ZOLPIDEM TARTRATE 5 MG TABLET PO PRN (21:47)
[2019-05-28] MEDS: OLANZapine 2.5 MG TABLET PO SCH (21:48)
[2019-05-28] MEDS: MONTELUKAST NA 10 MG TABLET PO SCH (21:48)
[2019-05-29] MEDS: HYDROmorphone HCL 2 MG TABLET PO PRN ×4 (00:30→18:31)
[2019-05-29] MEDS: diphenhydrAMINE HCL 25 MG CAPSULE (FP) PO PRN ×3 (04:00→18:31)
[2019-05-29] MEDS: ACETAMINOPHEN 325 MG TABLET (FP) PO PRN ×3 (05:56→21:26)
[2019-05-29] MEDS: SODIUM BICARBONATE 650 MG TABLET PO SCH ×3 (05:56→21:21)
[2019-05-29] MEDS: LEVOTHYROXINE NA 75 MCG TABLET (FP) PO SCH (05:56)
[2019-05-29] MEDS: DOCUSATE SODIUM 100 MG CAPSULE (FP) PO SCH ×3 (05:58→21:23)
[2019-05-29] MEDS: INSULIN SLIDING SCALE (NOVOLOG) 1 VIAL SQ SCH ×2 (06:00→17:50)
[2019-05-29] MEDS: ALBUTEROL SO4 2.5/IPRATROPIUM 0.5 INH SOL 3 ML VIAL.NEB. NEB SCH ×3 (08:00→19:50)
--- NOTE | 2019-05-29 09:20 | PN ---
Progress Note, Physician Chief Complaint: s/p Fall Bilateral Proximal Tibial/Fibula Fractures r/o UTI r/o Acute Bronchitis COPD Chronic Hypoxic Respiratory Failure Atrial Fibrillation HTN Hyperlipidemia h/o Uterine Ca Anemia History of Present Illness: NAD Straight cath UA UC negative IV abx discontinued afebrile Awaiting SNF placement - Current Medication List Current Medications: Active Medications Acetaminophen (Tylenol -) 650 mg PO Q6H PRN PRN Reason: FEVER Last Admin: 05/29/19 05:56 Dose: 650 mg Albuterol Sulfate (Ventolin Hfa Inhaler -) 2 puff IH Q4H PRN PRN Reason: SHORT OF BREATH/WHEEZING Albuterol/Ipratropium (Duoneb -) 1 amp NEB RTID [facility] Last Admin: 05/29/19 08:00 Dose: 1 amp Alprazolam (Xanax -) 0.25 mg PO Q8H PRN PRN Reason: ANXIETY Last Admin: 05/28/19 21:47 Dose: 0.25 mg Apixaban (Eliquis -) 5 mg PO BID [facility] Last Admin: 05/28/19 21:48 Dose: 5 mg Bacitracin (Bacitracin -) 1 applic TP DAILY [facility] Last Admin: 05/28/19 10:21 Dose: Not Given Bismuth Subsalicylate (Pepto-Bismol -) 524 mg PO BID PRN PRN Reason: DIARRHEA Last Admin: 05/28/19 15:17 Dose: 524 mg Buspirone HCl (Buspar -) 10 mg PO BID [facility] Last Admin: 05/28/19 21:48 Dose: 10 mg Cholecalciferol (Vitamin D3 -) 1,000 unit PO DAILY [facility] Last Admin: 05/28/19 10:20 Dose: 1,000 unit Clotrimazole (Lotrimin 1% Cream -) 1 applic TP BID [facility] Last Admin: 05/28/19 21:49 Dose: 1 applic Diphenhydramine HCl (Benadryl -) 25 mg PO Q6H PRN PRN Reason: FOR ITCHING Last Admin: 05/29/19 04:00 Dose: 25 mg Docusate Sodium (Colace -) 100 mg PO TID [facility] Last Admin: 05/29/19 05:58 Dose: Not Given Emollient Ointment (Aquaphor -) 1 applic TP TID PRN PRN Reason: INCONTINENT DERMATITIS Last Admin: 05/22/19 10:25 Dose: 1 applic Ferrous Sulfate (Feosol -) 325 mg PO BID [facility] Last Admin: 05/28/19 21:48 Dose: 325 mg Hydromorphone HCl (Dilaudid -) 2 mg PO Q6H PRN PRN Reason: PAIN LEVEL 6-10 Last Admin: 05/29/19 05:57 Dose: 2 mg Insulin Aspart (Novolog Vial Sliding Scale -) 1 vial SQ BIDAC [facility]; Protocol Last Admin: 05/29/19 06:00 Dose: Not Given Lactobacillus Acidophilus (Bacid -) 1 tab PO DAILY [facility] Last Admin: 05/28/19 10:20 Dose: 1 tab Levothyroxine Sodium (Synthroid -) 75 mcg PO DAILY@0600 [facility] Last Admin: 05/29/19 05:56 Dose: 75 mcg Loperamide HCl (Imodium -) 2 mg PO Q8H PRN PRN Reason: DIARRHEA Last Admin: 05/21/19 22:05 Dose: 2 mg Montelukast Sodium (Singulair -) 10 mg PO HS [facility] Last Admin: 05/28/19 21:48 Dose: 10 mg Multivit/Ca Carb/B Cmplx/FA/Prenat (Nephro-Héctor -) 1 tablet PO DAILY [facility] Last Admin: 05/28/19 10:20 Dose: 1 tablet Nystatin (Nystop Powder -) 1 applic TP DAILY [facility] Last Admin: 05/28/19 10:19 Dose: 1 applic Olanzapine (Zyprexa -) 2.5 mg PO HS [facility] Last Admin: 05/28/19 21:48 Dose: 2.5 mg Potassium Chloride (K-Dur -) 20 meq PO DAILY [facility] Last Admin: 05/28/19 10:20 Dose: 20 meq Ranitidine HCl (Zantac -) 150 mg PO DAILY [facility] Last Admin: 05/28/19 10:20 Dose: 150 mg Rosuvastatin Calcium (Crestor -) 10 mg PO DAILY [facility] Last Admin: 05/28/19 10:21 Dose: 10 mg Sodium Bicarbonate (Sodium Bicarbonate -) 650 mg PO TID [facility] Last Admin: 05/29/19 05:56 Dose: 650 mg Topiramate (Topamax -) 100 mg PO DAILY [facility] Last Admin: 05/28/19 10:20 Dose: 100 mg Venlafaxine HCl (Effexor Xr -) 75 mg PO DAILY [facility] Last Admin: 05/28/19 10:20 Dose: 75 mg Zolpidem Tartrate (Ambien -) 5 mg PO HS PRN PRN Reason: INSOMNIA Last Admin: 05/28/19 21:47 Dose: 5 mg - Objective Vital Signs: Vital Signs Temperature 99.1 F 05/29/19 06:00 Pulse Rate 136 H 05/29/19 06:00 Respiratory Rate 20 05/29/19 06:00 Blood Pressure 124/92 05/29/19 06:00 O2 Sat by Pulse Oximetry (%) 100 05/28/19 21:00 Constitutional: Yes: Well Nourished, No Distress, Calm Cardiovascular: Yes: Regular Rate and Rhythm Respiratory: Yes: Regular, Rhonchi, Other (trach collar) Gastrointestinal: Yes: Normal Bowel Sounds, Soft Musculoskeletal: Yes: WNL Extremities: Yes: WNL Edema: No Peripheral Pulses WNL: Yes Neurological: Yes: Alert, Oriented Psychiatric: Yes: Alert, Oriented Labs: CBC, BMP 05/25/19 06:32 05/25/19 06:32 INR, PTT INR 1.07 (0.83-1.09) 05/15/19 03:00 Problem List - Problems (1) Anemia Assessment/Plan: -chronic, stable -monitor trend Code(s): D64.9 - ANEMIA, UNSPECIFIED (2) Diabetes Assessment/Plan: -last A1c-4.0 Code(s): E11.9 - TYPE 2 DIABETES MELLITUS WITHOUT COMPLICATIONS (3) Fever Assessment/Plan: -ID on board -IV abx dc'd, observe off -afebrile -Source unknown -Cultures: Microbiology 05/23/19 12:25 Blood - Peripheral Venous Blood Culture - Preliminary NO GROWTH OBTAINED AFTER 72 HOURS, INCUBATION TO CONTINUE FOR 2 DAYS. 05/23/19 12:30 Blood - Peripheral Venous Blood Culture - Preliminary NO GROWTH OBTAINED AFTER 72 HOURS, INCUBATION TO CONTINUE FOR 2 DAYS. 05/25/19 12:04 Urine - Urine - Catheterized Urine Culture - Preliminary Staphylococcus Latex Coag Pos 05/24/19 11:45 Urine - Urine Clean Catch Urine Culture - Final Contaminated: Please Repeat 05/20/19 19:44 Stool Salmonella/Shigella Culture - Final NO GROWTH OF SALMONELLA OR SHIGELLA SPECIES OBTAINED 05/20/19 19:44 Stool Campylobacter Culture - Final NO GROWTH OF CAMPYLOBACTER SPECIES OBTAINED 05/20/19 19:44 Stool Yersinia Culture - Final NO GROWTH OF YERSINIA SPECIES OBTAINED 05/20/19 19:44 Stool Vibrio Culture - Final NO GROWTH OF VIBRIO SPECIES OBTAINED 05/20/19 19:44 Stool Escherichia coli 0157 Culture - Final NO GROWTH OF E COLI 0157 OBTAINED Code(s): R50.9 - FEVER, UNSPECIFIED (4) Sepsis Code(s): A41.9 - SEPSIS, UNSPECIFIED ORGANISM Qualifiers: Sepsis type: sepsis due to unspecified organism Qualified Code(s): A41.9 - Sepsis, unspecified organism (5) Bilateral closed proximal tibial fracture Assessment/Plan: -Ortho consult noted -pain control -Xray shows acute fracture proximal one third tibial diametaphysis, cannot exclude injury in tibial plateau Code(s): S82.101A - UNSP FRACTURE OF UPPER END OF RIGHT TIBIA, INIT FOR CLOS FX ; S82.102A - UNSP FRACTURE OF UPPER END OF LEFT TIBIA, INIT FOR CLOS FX (6) Acute and chronic respiratory failure with hypoxia Assessment/Plan: -O2 via trach collar -bronchodilators -Montelukast -keep SpO2 >90% -Pulmonary on board Code(s): J96.21 - ACUTE AND CHRONIC RESPIRATORY FAILURE WITH HYPOXIA (7) Afib Assessment/Plan: -On Eliquis Code(s): I48.91 - UNSPECIFIED ATRIAL FIBRILLATION Qualifiers: Atrial fibrillation type: chronic Qualified Code(s): I48.2 - Chronic atrial fibrillation Assessment/Plan See problem list Awaiting snf placement
[2019-05-29] MEDS: ROSUVASTATIN CA 10 MG TABLET (FP) PO SCH (09:31)
[2019-05-29] MEDS: POTASSIUM CHLORIDE TABS 20 MEQ TABLET.ER (FP) PO SCH (09:31)
[2019-05-29] MEDS: APIXABAN 5 MG TABLET PO SCH ×2 (09:31→21:21)
[2019-05-29] MEDS: ALPRAZolam 0.25 MG TABLET PO PRN ×2 (09:31→21:21)
[2019-05-29] MEDS: LACTOBACILLUS ACIDOPHILUS 1 TABLET PO SCH (09:31)
[2019-05-29] MEDS: FERROUS SO4 325 MG TABLET (FP) PO SCH ×2 (09:31→21:21)
[2019-05-29] MEDS: TOPIRAMATE 100 MG TABLET PO SCH (09:31)
[2019-05-29] MEDS: RANITIDINE HCL 150 MG TABLET (FP) PO SCH (09:31)
[2019-05-29] MEDS: VITAMIN B COMP W-C 1 EA TABLET PO SCH (09:31)
[2019-05-29] MEDS: CHOLECALCIFEROL (VIT D3) 1,000 UNIT (25 MCG) TABLET PO SCH (09:31)
[2019-05-29] MEDS: VENLAFAXINE HCL 75 MG E.R. CAPSULES (FP) PO SCH (09:31)
[2019-05-29] MEDS: busPIRone HCL 10 MG TABLET (FP) PO SCH ×2 (09:31→21:22)
[2019-05-29] MEDS: CLOTRIMAZOLE 1% CREAM 15 GM TUBE TP SCH ×2 (09:32→21:23)
[2019-05-29] MEDS: NYSTATIN POWDER 100,000 UNITS/GM - 15 GM TOPICAL POWDER TP SCH (09:32)
[2019-05-29] MEDS: BACITRACIN 15 GM TUBE TOPICAL OINTMENT TP SCH (09:32)
[2019-05-29] MEDS: BACLOFEN 10 MG TABLET (FP) PO SCH ×3 (10:32→22:21)
[2019-05-29] MEDS: ONDANSETRON 4 MG/2 ML VIAL IVPUSH SCH ×3 (10:32→21:21)
--- NOTE | 2019-05-29 11:05 | PN ---
Progress Note (short form) - Note Progress Note: PULMONARY CHART REVIEWED TOLERATING TRACH WITH PMV VSS/Afebrile Gen: NAD at rest Heart: RRR Lung: scattered rhonchi Abd: soft, nontender Ext: + edema A/P s/p Fall Bilateral Proximal Tibial/Fibula Fractures r/o UTI r/o Acute Bronchitis COPD Chronic Hypoxic Respiratory Failure Atrial Fibrillation HTN Hyperlipidemia h/o Uterine Ca Anemia - pain control - inhaled bronchodilators - O2 to keep Spo2 >90% - DVT prophylaxis Sreedhar SEXTON MD
[2019-05-29] MEDS: OLANZapine 2.5 MG TABLET PO SCH (21:21)
[2019-05-29] MEDS: ZOLPIDEM TARTRATE 5 MG TABLET PO PRN (21:21)
[2019-05-29] MEDS: MONTELUKAST NA 10 MG TABLET PO SCH (21:21)
[2019-05-30] MEDS: HYDROmorphone HCL 2 MG TABLET PO PRN ×4 (00:33→18:47)
[2019-05-30] MEDS: diphenhydrAMINE HCL 25 MG CAPSULE (FP) PO PRN ×4 (00:33→18:58)
[2019-05-30] MEDS: ONDANSETRON 4 MG/2 ML VIAL IVPUSH SCH ×4 (05:14→22:27)
[2019-05-30] MEDS: SODIUM BICARBONATE 650 MG TABLET PO SCH ×3 (05:55→21:46)
[2019-05-30] MEDS: LEVOTHYROXINE NA 75 MCG TABLET (FP) PO SCH (05:55)
[2019-05-30] MEDS: ACETAMINOPHEN 325 MG TABLET (FP) PO PRN ×2 (05:55→21:48)
[2019-05-30] MEDS: BACLOFEN 10 MG TABLET (FP) PO SCH ×3 (05:55→21:47)
[2019-05-30] MEDS: DOCUSATE SODIUM 100 MG CAPSULE (FP) PO SCH ×3 (05:58→21:46)
[2019-05-30] MEDS ORDERED: INSULIN (NOVOLOG) ASPART 100 UNITS/ML 10ML VIAL ONE ×2 (06:00→17:19)
[2019-05-30] MEDS: INSULIN SLIDING SCALE (NOVOLOG) 1 VIAL SQ SCH ×2 (06:03→17:22)
[2019-05-30] MEDS: ALBUTEROL SO4 2.5/IPRATROPIUM 0.5 INH SOL 3 ML VIAL.NEB. NEB SCH ×3 (07:33→19:40)
--- NOTE | 2019-05-30 09:46 | PN ---
Progress Note, Physician Chief Complaint: Tibial Plateau Fracture Fall Afib History of Present Illness: Previous notes and events reviewed awake and alert NAD complain of pain to B/L leg afebrile no leukocytosis awaiting SNF placement - Current Medication List Current Medications: Active Medications Acetaminophen (Tylenol -) 650 mg PO Q6H PRN PRN Reason: FEVER Last Admin: 05/30/19 05:55 Dose: 650 mg Albuterol Sulfate (Ventolin Hfa Inhaler -) 2 puff IH Q4H PRN PRN Reason: SHORT OF BREATH/WHEEZING Albuterol/Ipratropium (Duoneb -) 1 amp NEB RTID [facility] Last Admin: 05/30/19 07:33 Dose: 1 amp Alprazolam (Xanax -) 0.25 mg PO Q8H PRN PRN Reason: ANXIETY Last Admin: 05/29/19 21:21 Dose: 0.25 mg Apixaban (Eliquis -) 5 mg PO BID [facility] Last Admin: 05/29/19 21:21 Dose: 5 mg Bacitracin (Bacitracin -) 1 applic TP DAILY [facility] Last Admin: 05/29/19 09:32 Dose: Not Given Baclofen (Lioresal -) 10 mg PO TID [facility] Last Admin: 05/30/19 05:55 Dose: 10 mg Bismuth Subsalicylate (Pepto-Bismol -) 524 mg PO BID PRN PRN Reason: DIARRHEA Last Admin: 05/28/19 15:17 Dose: 524 mg Buspirone HCl (Buspar -) 10 mg PO BID [facility] Last Admin: 05/29/19 21:22 Dose: 10 mg Cholecalciferol (Vitamin D3 -) 1,000 unit PO DAILY [facility] Last Admin: 05/29/19 09:31 Dose: 1,000 unit Clotrimazole (Lotrimin 1% Cream -) 1 applic TP BID [facility] Last Admin: 05/29/19 21:23 Dose: 1 applic Diltiazem HCl (Cardizem Cd -) 180 mg PO DAILY [facility] Last Admin: 05/29/19 10:32 Dose: 180 mg Diphenhydramine HCl (Benadryl -) 25 mg PO Q6H PRN PRN Reason: FOR ITCHING Last Admin: 05/30/19 06:03 Dose: 25 mg Docusate Sodium (Colace -) 100 mg PO TID [facility] Last Admin: 05/30/19 05:58 Dose: Not Given Emollient Ointment (Aquaphor -) 1 applic TP TID PRN PRN Reason: INCONTINENT DERMATITIS Last Admin: 05/22/19 10:25 Dose: 1 applic Ferrous Sulfate (Feosol -) 325 mg PO BID [facility] Last Admin: 05/29/19 21:21 Dose: 325 mg Hydromorphone HCl (Dilaudid -) 2 mg PO Q6H PRN PRN Reason: PAIN LEVEL 6-10 Last Admin: 05/30/19 06:03 Dose: 2 mg Insulin Aspart (Novolog Vial Sliding Scale -) 1 vial SQ BIDAC [facility]; Protocol Last Admin: 05/30/19 06:03 Dose: 4 units Lactobacillus Acidophilus (Bacid -) 1 tab PO DAILY [facility] Last Admin: 05/29/19 09:31 Dose: 1 tab Levothyroxine Sodium (Synthroid -) 75 mcg PO DAILY@0600 [facility] Last Admin: 05/30/19 05:55 Dose: 75 mcg Lidocaine (Lidoderm Patch -) 1 patch TP DAILY [facility] Loperamide HCl (Imodium -) 2 mg PO Q8H PRN PRN Reason: DIARRHEA Last Admin: 05/21/19 22:05 Dose: 2 mg Miscellaneous (Lidoderm Patch Removal) 1 each MC DAILY@2200 [facility] Montelukast Sodium (Singulair -) 10 mg PO HS [facility] Last Admin: 05/29/19 21:21 Dose: 10 mg Multivit/Ca Carb/B Cmplx/FA/Prenat (Nephro-Héctor -) 1 tablet PO DAILY [facility] Last Admin: 05/29/19 09:31 Dose: 1 tablet Nystatin (Nystop Powder -) 1 applic TP DAILY [facility] Last Admin: 05/29/19 09:32 Dose: 1 applic Olanzapine (Zyprexa -) 2.5 mg PO HS [facility] Last Admin: 05/29/19 21:21 Dose: 2.5 mg Ondansetron HCl (Zofran Injection) 4 mg IVPUSH Q6H [facility] Last Admin: 05/30/19 05:14 Dose: Not Given Potassium Chloride (K-Dur -) 20 meq PO DAILY [facility] Last Admin: 05/29/19 09:31 Dose: 20 meq Ranitidine HCl (Zantac -) 150 mg PO DAILY [facility] Last Admin: 05/29/19 09:31 Dose: 150 mg Rosuvastatin Calcium (Crestor -) 10 mg PO DAILY [facility] Last Admin: 05/29/19 09:31 Dose: 10 mg Sodium Bicarbonate (Sodium Bicarbonate -) 650 mg PO TID [facility] Last Admin: 05/30/19 05:55 Dose: 650 mg Topiramate (Topamax -) 100 mg PO DAILY [facility] Last Admin: 05/29/19 09:31 Dose: 100 mg Venlafaxine HCl (Effexor Xr -) 75 mg PO DAILY [facility] Last Admin: 05/29/19 09:31 Dose: 75 mg Zolpidem Tartrate (Ambien -) 5 mg PO HS PRN PRN Reason: INSOMNIA Last Admin: 05/29/19 21:21 Dose: 5 mg - Objective Vital Signs: Vital Signs Temperature 99.1 F 05/30/19 05:00 Pulse Rate 112 H 05/30/19 05:00 Respiratory Rate 18 05/30/19 05:00 Blood Pressure 108/71 05/30/19 05:00 O2 Sat by Pulse Oximetry (%) 100 05/29/19 21:00 Constitutional: Yes: No Distress, Calm Eyes: Yes: Conjunctiva Clear HENT: Yes: Atraumatic Neck: Yes: Other (trach) Cardiovascular: Yes: Tachycardia, Pulse Irregular Respiratory: Yes: Regular, Diminished, Other (O2 via trach collar) Gastrointestinal: Yes: Normal Bowel Sounds, Soft Genitourinary: Yes: Incontinence Musculoskeletal: Yes: Back Pain, Muscle Weakness Extremities: Yes: Other (B/L leg cast) Edema: No Integumentary: Yes: Rash (abdomen) Neurological: Yes: Alert, Pre-Existing Deficit Psychiatric: Yes: Alert, Oriented Labs: CBC, BMP 05/25/19 06:32 05/25/19 06:32 INR, PTT INR 1.07 (0.83-1.09) 05/15/19 03:00 Problem List - Problems (1) Bilateral closed proximal tibial fracture Assessment/Plan: -Ortho consult -pain control -Xray shows acute fracture proximal one third tibial diametaphysis, cannot exclude injury in tibial plateau -will need SNF placement for d/c for PT Code(s): S82.101A - UNSP FRACTURE OF UPPER END OF RIGHT TIBIA, INIT FOR CLOS FX ; S82.102A - UNSP FRACTURE OF UPPER END OF LEFT TIBIA, INIT FOR CLOS FX (2) Afib Assessment/Plan: -Eliquis -Cardizem for rate control Code(s): I48.91 - UNSPECIFIED ATRIAL FIBRILLATION Qualifiers: Atrial fibrillation type: chronic Qualified Code(s): I48.2 - Chronic atrial fibrillation (3) Chronic respiratory failure Assessment/Plan: -O2 via trach collar -bronchodilators -montelukast -keep SpO2 >90% -pulm on board Code(s): J96.10 - CHRONIC RESPIRATORY FAILURE, UNSP W HYPOXIA OR HYPERCAPNIA (4) Diabetes Assessment/Plan: -BGM BID AC -ISS Code(s): E11.9 - TYPE 2 DIABETES MELLITUS WITHOUT COMPLICATIONS (5) Hypothyroid Assessment/Plan: -Levothyroxine Code(s): E03.9 - HYPOTHYROIDISM, UNSPECIFIED Qualifiers: (6) COPD (chronic obstructive pulmonary disease) Assessment/Plan: -Montelukast -O2 via trach collar -keep SpO2 >90% -pulm on board -bronchodilators Code(s): J44.9 - CHRONIC OBSTRUCTIVE PULMONARY DISEASE, UNSPECIFIED (7) GERD (gastroesophageal reflux disease) Assessment/Plan: -Rantidine Code(s): K21.9 - GASTRO-ESOPHAGEAL REFLUX DISEASE WITHOUT ESOPHAGITIS (8) Hyperlipidemia Assessment/Plan: -Crestor Code(s): E78.5 - HYPERLIPIDEMIA, UNSPECIFIED Qualifiers: (9) Sepsis Assessment/Plan: -no leukocytosis -afebrile -ID on board -UC positive -BC neg -IV ABT d/c, monitor off Code(s): A41.9 - SEPSIS, UNSPECIFIED ORGANISM Qualifiers: Sepsis type: sepsis due to unspecified organism Qualified Code(s): A41.9 - Sepsis, unspecified organism Assessment/Plan see problem list awaiting bed at [facility]
[2019-05-30] MEDS ORDERED: PT OWN MED DRAWER 7, Y5N ONE (10:31)
[2019-05-30] MEDS: POTASSIUM CHLORIDE TABS 20 MEQ TABLET.ER (FP) PO SCH (10:35)
[2019-05-30] MEDS: FERROUS SO4 325 MG TABLET (FP) PO SCH ×2 (10:35→21:46)
[2019-05-30] MEDS: TOPIRAMATE 100 MG TABLET PO SCH (10:35)
[2019-05-30] MEDS: APIXABAN 5 MG TABLET PO SCH ×2 (10:35→21:46)
[2019-05-30] MEDS: RANITIDINE HCL 150 MG TABLET (FP) PO SCH (10:35)
[2019-05-30] MEDS: ROSUVASTATIN CA 10 MG TABLET (FP) PO SCH (10:35)
[2019-05-30] MEDS: VENLAFAXINE HCL 75 MG E.R. CAPSULES (FP) PO SCH (10:35)
[2019-05-30] MEDS: CHOLECALCIFEROL (VIT D3) 1,000 UNIT (25 MCG) TABLET PO SCH (10:35)
[2019-05-30] MEDS: LACTOBACILLUS ACIDOPHILUS 1 TABLET PO SCH (10:35)
[2019-05-30] MEDS: VITAMIN B COMP W-C 1 EA TABLET PO SCH (10:36)
[2019-05-30] MEDS: LIDOCAINE 5% TOPICAL PATCH TP SCH (10:36)
[2019-05-30] MEDS: CLOTRIMAZOLE 1% CREAM 15 GM TUBE TP SCH ×2 (10:38→21:50)
[2019-05-30] MEDS: NYSTATIN POWDER 100,000 UNITS/GM - 15 GM TOPICAL POWDER TP SCH (10:39)
[2019-05-30] MEDS: BACITRACIN 15 GM TUBE TOPICAL OINTMENT TP SCH (10:40)
[2019-05-30] MEDS: busPIRone HCL 10 MG TABLET (FP) PO SCH ×2 (10:40→21:48)
[2019-05-30] MEDS: ALPRAZolam 0.25 MG TABLET PO PRN ×2 (10:53→22:27)
[2019-05-30] MEDS: MONTELUKAST NA 10 MG TABLET PO SCH (21:46)
[2019-05-30] MEDS: ZOLPIDEM TARTRATE 5 MG TABLET PO PRN (21:47)
[2019-05-30] MEDS: OLANZapine 2.5 MG TABLET PO SCH (21:47)
[2019-05-30] MEDS ORDERED: LIDOCAINE PATCH REMOVAL MC SCH (22:00)
[2019-05-31] MEDS: diphenhydrAMINE HCL 25 MG CAPSULE (FP) PO PRN ×3 (01:06→14:23)
[2019-05-31] MEDS: HYDROmorphone HCL 2 MG TABLET PO PRN ×3 (01:06→13:52)
[2019-05-31] MEDS: ONDANSETRON 4 MG/2 ML VIAL IVPUSH SCH ×3 (03:38→16:29)
[2019-05-31] MEDS: ACETAMINOPHEN 325 MG TABLET (FP) PO PRN (03:45)
[2019-05-31] MEDS: SODIUM BICARBONATE 650 MG TABLET PO SCH ×2 (06:39→13:52)
[2019-05-31] MEDS: LEVOTHYROXINE NA 75 MCG TABLET (FP) PO SCH (06:40)
[2019-05-31] MEDS: ALPRAZolam 0.25 MG TABLET PO PRN (06:40)
[2019-05-31] MEDS: DOCUSATE SODIUM 100 MG CAPSULE (FP) PO SCH ×2 (06:40→13:53)
[2019-05-31] MEDS: BACLOFEN 10 MG TABLET (FP) PO SCH ×2 (06:40→13:53)
[2019-05-31] MEDS: INSULIN SLIDING SCALE (NOVOLOG) 1 VIAL SQ SCH (06:45)
--- NOTE | 2019-05-31 08:42 | PN ---
Progress Note, Physician - Current Medication List Current Medications: Active Medications Acetaminophen (Tylenol -) 650 mg PO Q6H PRN PRN Reason: FEVER Last Admin: 05/31/19 03:45 Dose: 650 mg Albuterol Sulfate (Ventolin Hfa Inhaler -) 2 puff IH Q4H PRN PRN Reason: SHORT OF BREATH/WHEEZING Last Admin: 05/31/19 03:38 Dose: 2 puff Albuterol/Ipratropium (Duoneb -) 1 amp NEB RTID [facility] Last Admin: 05/30/19 19:40 Dose: 1 amp Alprazolam (Xanax -) 0.25 mg PO Q8H PRN PRN Reason: ANXIETY Last Admin: 05/31/19 06:40 Dose: 0.25 mg Apixaban (Eliquis -) 5 mg PO BID [facility] Last Admin: 05/30/19 21:46 Dose: 5 mg Bacitracin (Bacitracin -) 1 applic TP DAILY [facility] Last Admin: 05/30/19 10:40 Dose: Not Given Baclofen (Lioresal -) 10 mg PO TID [facility] Last Admin: 05/31/19 06:40 Dose: 10 mg Bismuth Subsalicylate (Pepto-Bismol -) 524 mg PO BID PRN PRN Reason: DIARRHEA Last Admin: 05/28/19 15:17 Dose: 524 mg Buspirone HCl (Buspar -) 10 mg PO BID [facility] Last Admin: 05/30/19 21:48 Dose: 10 mg Cholecalciferol (Vitamin D3 -) 1,000 unit PO DAILY [facility] Last Admin: 05/30/19 10:35 Dose: 1,000 unit Clotrimazole (Lotrimin 1% Cream -) 1 applic TP BID [facility] Last Admin: 05/30/19 21:50 Dose: 1 applic Diltiazem HCl (Cardizem Cd -) 180 mg PO DAILY [facility] Last Admin: 05/30/19 10:36 Dose: 180 mg Diphenhydramine HCl (Benadryl -) 25 mg PO Q6H PRN PRN Reason: FOR ITCHING Last Admin: 05/31/19 06:40 Dose: 25 mg Docusate Sodium (Colace -) 100 mg PO TID [facility] Last Admin: 05/31/19 06:40 Dose: 100 mg Emollient Ointment (Aquaphor -) 1 applic TP TID PRN PRN Reason: INCONTINENT DERMATITIS Last Admin: 05/22/19 10:25 Dose: 1 applic Ferrous Sulfate (Feosol -) 325 mg PO BID [facility] Last Admin: 05/30/19 21:46 Dose: 325 mg Hydromorphone HCl (Dilaudid -) 2 mg PO Q6H PRN PRN Reason: PAIN LEVEL 6-10 Last Admin: 05/31/19 06:41 Dose: 2 mg Insulin Aspart (Novolog Vial Sliding Scale -) 1 vial SQ BIDAC [facility]; Protocol Last Admin: 05/31/19 06:45 Dose: 2 units Lactobacillus Acidophilus (Bacid -) 1 tab PO DAILY [facility] Last Admin: 05/30/19 10:35 Dose: 1 tab Levothyroxine Sodium (Synthroid -) 75 mcg PO DAILY@0600 [facility] Last Admin: 05/31/19 06:40 Dose: 75 mcg Lidocaine (Lidoderm Patch -) 1 patch TP DAILY [facility] Last Admin: 05/30/19 10:36 Dose: 1 patch Loperamide HCl (Imodium -) 2 mg PO Q8H PRN PRN Reason: DIARRHEA Last Admin: 05/21/19 22:05 Dose: 2 mg Miscellaneous (Lidoderm Patch Removal) 1 each MC DAILY@2200 [facility] Last Admin: 05/30/19 21:51 Dose: 1 each Montelukast Sodium (Singulair -) 10 mg PO HS [facility] Last Admin: 05/30/19 21:46 Dose: 10 mg Multivit/Ca Carb/B Cmplx/FA/Prenat (Nephro-Héctor -) 1 tablet PO DAILY [facility] Last Admin: 05/30/19 10:36 Dose: 1 tablet Nystatin (Nystop Powder -) 1 applic TP DAILY [facility] Last Admin: 05/30/19 10:39 Dose: 1 applic Olanzapine (Zyprexa -) 2.5 mg PO HS [facility] Last Admin: 05/30/19 21:47 Dose: 2.5 mg Ondansetron HCl (Zofran Injection) 4 mg IVPUSH Q6H [facility] Last Admin: 05/31/19 03:38 Dose: 4 mg Potassium Chloride (K-Dur -) 20 meq PO DAILY [facility] Last Admin: 05/30/19 10:35 Dose: 20 meq Ranitidine HCl (Zantac -) 150 mg PO DAILY [facility] Last Admin: 05/30/19 10:35 Dose: 150 mg Rosuvastatin Calcium (Crestor -) 10 mg PO DAILY [facility] Last Admin: 05/30/19 10:35 Dose: 10 mg Sodium Bicarbonate (Sodium Bicarbonate -) 650 mg PO TID [facility] Last Admin: 05/31/19 06:39 Dose: 650 mg Topiramate (Topamax -) 100 mg PO DAILY [facility] Last Admin: 05/30/19 10:35 Dose: 100 mg Venlafaxine HCl (Effexor Xr -) 75 mg PO DAILY [facility] Last Admin: 05/30/19 10:35 Dose: 75 mg Zolpidem Tartrate (Ambien -) 5 mg PO HS PRN PRN Reason: INSOMNIA Last Admin: 05/30/19 21:47 Dose: 5 mg - Objective Vital Signs: Vital Signs Temperature 98.2 F 05/31/19 06:52 Pulse Rate 104 H 05/31/19 06:52 Respiratory Rate 18 05/31/19 06:52 Blood Pressure 122/74 05/31/19 06:52 O2 Sat by Pulse Oximetry (%) 100 05/30/19 09:00 Cardiovascular: Yes: S1, S2 Respiratory: Yes: Regular, CTA Bilaterally Gastrointestinal: Yes: Normal Bowel Sounds, Soft Extremities: Yes: Other (cast in place) Labs: CBC, BMP 05/25/19 06:32 05/25/19 06:32 INR, PTT INR 1.07 (0.83-1.09) 05/15/19 03:00 Assessment/Plan - Problems (1) Bilateral closed proximal tibial fracture Assessment/Plan: -Ortho consult -pain control -Xray shows acute fracture proximal one third tibial diametaphysis, cannot exclude injury in tibial plateau -will need SNF placement for d/c for PT Code(s): S82.101A - UNSP FRACTURE OF UPPER END OF RIGHT TIBIA, INIT FOR CLOS FX ; S82.102A - UNSP FRACTURE OF UPPER END OF LEFT TIBIA, INIT FOR CLOS FX (2) Afib Assessment/Plan: -Eliquis -Cardizem for rate control Code(s): I48.91 - UNSPECIFIED ATRIAL FIBRILLATION Qualifiers: Atrial fibrillation type: chronic Qualified Code(s): I48.2 - Chronic atrial fibrillation (3) Chronic respiratory failure Assessment/Plan: -O2 via trach collar -bronchodilators -montelukast -keep SpO2 >90% -pulm on board Code(s): J96.10 - CHRONIC RESPIRATORY FAILURE, UNSP W HYPOXIA OR HYPERCAPNIA (4) Diabetes Assessment/Plan: -BGM BID AC -ISS Code(s): E11.9 - TYPE 2 DIABETES MELLITUS WITHOUT COMPLICATIONS (5) Hypothyroid Assessment/Plan: -Levothyroxine Code(s): E03.9 - HYPOTHYROIDISM, UNSPECIFIED Qualifiers: (6) COPD (chronic obstructive pulmonary disease) Assessment/Plan: -Montelukast -O2 via trach collar -keep SpO2 >90% -pulm on board -bronchodilators Code(s): J44.9 - CHRONIC OBSTRUCTIVE PULMONARY DISEASE, UNSPECIFIED (7) GERD (gastroesophageal reflux disease) Assessment/Plan: -Rantidine Code(s): K21.9 - GASTRO-ESOPHAGEAL REFLUX DISEASE WITHOUT ESOPHAGITIS (8) Hyperlipidemia Assessment/Plan: -Crestor Code(s): E78.5 - HYPERLIPIDEMIA, UNSPECIFIED Qualifiers: (9) Sepsis Assessment/Plan: -no leukocytosis -afebrile -ID on board -UC positive -BC neg -IV ABT d/c, monitor off Code(s): A41.9 - SEPSIS, UNSPECIFIED ORGANISM Qualifiers: Sepsis type: sepsis due to unspecified organism Qualified Code(s): A41.9 - Sepsis, unspecified organism
[2019-05-31] MEDS: ALBUTEROL SO4 2.5/IPRATROPIUM 0.5 INH SOL 3 ML VIAL.NEB. NEB SCH ×2 (08:53→14:55)
--- NOTE | 2019-05-31 09:53 | PN ---
Progress Note (short form) - Note Progress Note: NAD on PMV/Trach collar. No CP or SOB. No acute events overnight. Constitutional: Yes: No Distress Eyes: Yes: Conjunctiva Clear, EOM Intact HENT: Yes: Atraumatic, Normocephalic Neck: Yes: Trachea Midline, Trach/PMV Cardiovascular: Yes: Pulse Irregular Respiratory: Yes: Cough, Diminished. ...Inspection: Yes: WNL ...Clubbing: No Gastrointestinal: Yes: Normal Bowel Sounds, Soft, Abdomen, Obese Renal/: Yes: WNL Musculoskeletal: Yes: Back Pain, Joint Stiffness, Joint Swelling, Muscle Pain Extremities: Yes: WNL Edema: Yes Peripheral Pulses WNL: Yes Integumentary: Yes: WNL Neurological: Yes: WNL, Alert, Oriented ...Motor Strength: WNL Psychiatric: Yes: WNL, Alert, Oriented Labs: Laboratory Results - last 24 hr 05/25/19 05/29/19 05/29/19 06:32 12:27 17:49 Hematology Comments No Result Required. POC Glucometer 166 194 05/29/19 05/30/19 21:29 05:55 Hematology Comments POC Glucometer 220 255 Problem List - Problems (1) Sleep apnea Code(s): G47.30 - SLEEP APNEA, UNSPECIFIED (2) Tibial plateau fracture Code(s): S82.143A - DISPLACED BICONDYLAR FRACTURE OF UNSP TIBIA, INIT (3) Afib Code(s): I48.91 - UNSPECIFIED ATRIAL FIBRILLATION (4) Anxiety Code(s): F41.9 - ANXIETY DISORDER, UNSPECIFIED (5) Back pain Code(s): M54.9 - DORSALGIA, UNSPECIFIED (6) Bipolar 1 disorder Code(s): F31.9 - BIPOLAR DISORDER, UNSPECIFIED (7) Chronic respiratory failure Code(s): J96.10 - CHRONIC RESPIRATORY FAILURE, UNSP W HYPOXIA OR HYPERCAPNIA (8) Diabetes Code(s): E11.9 - TYPE 2 DIABETES MELLITUS WITHOUT COMPLICATIONS (9) Hypothyroid Code(s): E03.9 - HYPOTHYROIDISM, UNSPECIFIED Qualifiers: (10) Insomnia disorder Code(s): G47.00 - INSOMNIA, UNSPECIFIED (11) Knee pain Code(s): M25.569 - PAIN IN UNSPECIFIED KNEE (12) Migraine headache Code(s): G43.909 - MIGRAINE, UNSP, NOT INTRACTABLE, WITHOUT STATUS MIGRAINOSUS (13) Afib Code(s): I48.91 - UNSPECIFIED ATRIAL FIBRILLATION (14) Asthma Code(s): J45.909 - UNSPECIFIED ASTHMA, UNCOMPLICATED (15) COPD (chronic obstructive pulmonary disease) Code(s): J44.9 - CHRONIC OBSTRUCTIVE PULMONARY DISEASE, UNSPECIFIED (16) Chronic back pain Code(s): M54.9 - DORSALGIA, UNSPECIFIED; G89.29 - OTHER CHRONIC PAIN (17) Chronic pain disorder Code(s): G89.4 - CHRONIC PAIN SYNDROME (18) GERD (gastroesophageal reflux disease) Code(s): K21.9 - GASTRO-ESOPHAGEAL REFLUX DISEASE WITHOUT ESOPHAGITIS (19) Hyperlipidemia Code(s): E78.5 - HYPERLIPIDEMIA, UNSPECIFIED Qualifiers: Assessment/Plan Trach collar to maintain saturation BD TX PRN PMV as tolerated PT No Pulmonary contraindication for D/C Dr Castaneda Problem List - Problems (1) Sleep apnea Code(s): G47.30 - SLEEP APNEA, UNSPECIFIED (2) Tibial plateau fracture Code(s): S82.143A - DISPLACED BICONDYLAR FRACTURE OF UNSP TIBIA, INIT (3) Afib Code(s): I48.91 - UNSPECIFIED ATRIAL FIBRILLATION Qualifiers: Atrial fibrillation type: chronic Qualified Code(s): I48.2 - Chronic atrial fibrillation (4) Anxiety Code(s): F41.9 - ANXIETY DISORDER, UNSPECIFIED (5) Back pain Code(s): M54.9 - DORSALGIA, UNSPECIFIED (6) Bipolar 1 disorder Code(s): F31.9 - BIPOLAR DISORDER, UNSPECIFIED (7) Chronic respiratory failure Code(s): J96.10 - CHRONIC RESPIRATORY FAILURE, UNSP W HYPOXIA OR HYPERCAPNIA (8) Diabetes Code(s): E11.9 - TYPE 2 DIABETES MELLITUS WITHOUT COMPLICATIONS (9) Hypothyroid Code(s): E03.9 - HYPOTHYROIDISM, UNSPECIFIED Qualifiers: (10) Insomnia disorder Code(s): G47.00 - INSOMNIA, UNSPECIFIED (11) Knee pain Code(s): M25.569 - PAIN IN UNSPECIFIED KNEE (12) Migraine headache Code(s): G43.909 - MIGRAINE, UNSP, NOT INTRACTABLE, WITHOUT STATUS MIGRAINOSUS (13) Afib Code(s): I48.91 - UNSPECIFIED ATRIAL FIBRILLATION (14) Asthma Code(s): J45.909 - UNSPECIFIED ASTHMA, UNCOMPLICATED (15) COPD (chronic obstructive pulmonary disease) Code(s): J44.9 - CHRONIC OBSTRUCTIVE PULMONARY DISEASE, UNSPECIFIED (16) Chronic back pain Code(s): M54.9 - DORSALGIA, UNSPECIFIED; G89.29 - OTHER CHRONIC PAIN (17) Chronic pain disorder Code(s): G89.4 - CHRONIC PAIN SYNDROME (18) GERD (gastroesophageal reflux disease) Code(s): K21.9 - GASTRO-ESOPHAGEAL REFLUX DISEASE WITHOUT ESOPHAGITIS (19) Hyperlipidemia Code(s): E78.5 - HYPERLIPIDEMIA, UNSPECIFIED Qualifiers:
[2019-05-31] MEDS: ROSUVASTATIN CA 10 MG TABLET (FP) PO SCH (10:14)
[2019-05-31] MEDS: APIXABAN 5 MG TABLET PO SCH (10:20)
[2019-05-31] MEDS: TOPIRAMATE 100 MG TABLET PO SCH (10:20)
[2019-05-31] MEDS: RANITIDINE HCL 150 MG TABLET (FP) PO SCH (10:20)
[2019-05-31] MEDS: VENLAFAXINE HCL 75 MG E.R. CAPSULES (FP) PO SCH (10:20)
[2019-05-31] MEDS: POTASSIUM CHLORIDE TABS 20 MEQ TABLET.ER (FP) PO SCH (10:20)
[2019-05-31] MEDS: CHOLECALCIFEROL (VIT D3) 1,000 UNIT (25 MCG) TABLET PO SCH (10:20)
[2019-05-31] MEDS: FERROUS SO4 325 MG TABLET (FP) PO SCH (10:20)
[2019-05-31] MEDS: LACTOBACILLUS ACIDOPHILUS 1 TABLET PO SCH (10:20)
[2019-05-31] MEDS: BACITRACIN 15 GM TUBE TOPICAL OINTMENT TP SCH (10:21)
[2019-05-31] MEDS: VITAMIN B COMP W-C 1 EA TABLET PO SCH (10:21)
[2019-05-31] MEDS: busPIRone HCL 10 MG TABLET (FP) PO SCH (10:21)
[2019-05-31] MEDS: LIDOCAINE 5% TOPICAL PATCH TP SCH (10:21)
[2019-05-31 11:17] LABS: BASO % 0.8 % (0-2.0); EOS % 8.9 % (0-4.5); HEMATOCRIT 30.5 % (32.4-45.2); HEMOGLOBIN 9.9 GM/dL (10.7-15.3); LYMPH % 19.3 % (8-40); MCHC 32.5 g/dl (32.0-36.0); MEAN CELL VOLUME 92.4 fl (80-96); MEAN PLT VOLUME 8.5 fl (7.5-11.1); MONO % 9.4 % (3.8-10.2); NEUT % 61.6 % (42.8-82.8); PLATELET COUNT 418 K/MM3 (134-434); RBC 3.31 M/mm3 (3.60-5.2); RDW 15.3 % (11.6-15.6); WHITE BLOOD COUNT 7.4 K/mm3 (4.0-10.0)
[2019-05-31] MEDS: CLOTRIMAZOLE 1% CREAM 15 GM TUBE TP SCH (11:32)
[2019-05-31] MEDS: NYSTATIN POWDER 100,000 UNITS/GM - 15 GM TOPICAL POWDER TP SCH (11:32)
[2019-05-31 11:37] LABS: BILIRUBIN,TOTAL 0.4 mg/dL (0.2-1); BLOOD UREA NITROGEN 18.2 mg/dL (7-18); CALCIUM 8.8 mg/dL (8.5-10.1); CREATININE 1.2 mg/dL (0.55-1.3); POTASSIUM 4.1 mmol/L (3.5-5.1); TOT PROT 6.7 g/dl (6.4-8.2)
--- NOTE | 2019-05-31 14:29 | DS ---
Physical Examination Vital Signs: Vital Signs Temperature 98.2 F 05/31/19 06:52 Pulse Rate 106 H 05/31/19 10:37 Respiratory Rate 18 05/31/19 10:37 Blood Pressure 110/70 05/31/19 10:37 O2 Sat by Pulse Oximetry (%) 95 05/31/19 08:53 Labs: CBC, BMP 05/31/19 10:45 05/31/19 10:45 Discharge Summary Reason For Visit: FRACTURE OF PROXIMAL EN OF TIBIA Current Active Problems Bilateral closed proximal tibial fracture (Acute) Bilateral fibular fractures (Acute) Bilateral tibial fractures (Acute) Fatty liver (Acute) Hemarthrosis (Acute) History of Clostridioides difficile colitis (Acute) Hx of mcfp use of blood thinners (Acute) Sleep apnea (Acute) Tibial plateau fracture (Acute) Condition: Stable - Instructions Disposition: CUSTODIAL FACILITY - Home Medications Comprehensive Discharge Medication List: Ambulatory Orders Rosuvastatin Calcium [Crestor] 10 mg PO DAILY 07/09/18 Montelukast Na [Singulair -] 10 mg PO HS 08/07/18 Topiramate [Topamax -] 100 mg PO DAILY #30 tablet 08/15/18 Cholecalciferol (Vitamin D3) [Vitamin D3 -] 1,000 unit PO DAILY tab 11/09/18 Ranitidine [Zantac -] 150 mg PO DAILY 12/12/18 Venlafaxine HCl ER [Effexor Xr -] 75 mg PO DAILY 12/12/18 Vitamin B Comp W-C [Nephro-Héctor -] 1 tablet PO DAILY 12/12/18 Lactobacillus Acidophilus [Bacid -] 1 tab PO DAILY tab 12/23/18 Sodium Bicarbonate - 650 mg PO TID #30 tablet MDD 3 12/23/18 Albuterol 2.5/Ipratropium 0.5 [Duoneb -] 1 amp NEB RTID amp 12/31/18 Alprazolam [Xanax] 0.25 mg PO Q8H PRN tablet MDD 3 12/31/18 Buspirone HCl [Buspar -] 10 mg PO BID tablet 12/31/18 Clotrimazole [Lotrimin -] 1 applic TP BID tube 12/31/18 Ferrous Sulfate [Feosol] 325 mg PO BIDWM ud 12/31/18 HYDROmorphone [Dilaudid -] 2 mg PO Q6H PRN tablet MDD 4 12/31/18 Levothyroxine [Synthroid -] 75 mcg PO DAILY@0600 tablet 12/31/18 Loperamide HCl [Imodium -] 2 mg PO Q8H PRN capsule 12/31/18 Nystatin Powder [Nystop Powder -] 1 applic TP DAILY applic 12/31/18 Venlafaxine HCl ER [Effexor Xr -] 75 mg PO DAILY@0600 cap.er.24h 12/31/18 Acetaminophen [Tylenol .Regular Strength -] 650 mg PO Q6H PRN tablet 05/28/19 Apixaban [Eliquis -] 5 mg PO BID tablet 05/28/19 Bacitracin - [Bacitracin Topical Ointment -] 1 applic TP DAILY tube 05/28/19 Bismuth Subsalicylate [Pepto-Bismol -] 524 mg PO BID PRN ud 05/28/19 Diphenhydramine HCl [Benadryl Capsule -] 25 mg PO Q6H PRN capsule 05/28/19 Docusate Sodium [Colace -] 100 mg PO TID capsule 05/28/19 HYDROmorphone [Dilaudid -] 2 mg PO Q6H PRN #120 tablet MDD 4 05/28/19 Insulin Sliding Scale [Novolog Vial Sliding Scale -] 1 vial SQ BIDAC units 05/11 Lactobacillus Acidophilus [Bacid -] 1 tab PO DAILY tab 05/28/19 Mineral Oil/Pet Hy-Phl [Aquaphor -] 1 applic TP TID PRN jar 05/28/19 Olanzapine [Zyprexa -] 2.5 mg PO HS tablet 05/28/19 Potassium Chloride [K-Dur -] 20 meq PO DAILY tablet.er 05/28/19 Zolpidem Tartrate [Ambien] 5 mg PO HS PRN #30 tablet MDD 1 05/28/19
[2019-05-31 15:25] VITALS: BP 117/61; PULSE 114; TEMP 98.4
[2019-05-31] MEDS ORDERED: HYDROmorphone HCL 2 MG TABLET PO ONE (16:30)
== END 2019-05-31 16:30 | DRG 516 ==
LOC: JER 01:36 → JERBED 06:31 → J8W 17:31
PROVIDERS: ADMIT Family Medicine; ATTEND Family Medicine
PROC: 30233N1 Transfusion of Nonautologous Red Blood Cells into Peripheral Vein, Percutaneous Approach (ICD-10-PCS; 2019-05-18)
PROC: 06H03DZ Insertion of Intraluminal Device into Inferior Vena Cava, Percutaneous Approach (ICD-10-PCS; principal; 2019-05-18 17:30)
DX: S82.144A Nondisplaced bicondylar fracture of right tibia, initial encounter for closed fracture (principal); S82.145A Nondisplaced bicondylar fracture of left tibia, initial encounter for closed fracture; J96.11 Chronic respiratory failure with hypoxia; M25.00 Hemarthrosis, unspecified joint; S89.201A Unspecified physeal fracture of upper end of right fibula, initial encounter for closed fracture; S89.202A Unspecified physeal fracture of upper end of left fibula, initial encounter for closed fracture; J44.9 Chronic obstructive pulmonary disease, unspecified; Z93.0 Tracheostomy status; F31.9 Bipolar disorder, unspecified; J20.9 Acute bronchitis, unspecified; D64.9 Anemia, unspecified; G47.30 Sleep apnea, unspecified; E03.9 Hypothyroidism, unspecified; E11.9 Type 2 diabetes mellitus without complications; K21.9 Gastro-esophageal reflux disease without esophagitis; E78.5 Hyperlipidemia, unspecified; F41.9 Anxiety disorder, unspecified; K76.0 Fatty (change of) liver, not elsewhere classified; W19.XXXA Unspecified fall, initial encounter; Y93.9 Activity, unspecified; Y92.89 Other specified places as the place of occurrence of the external cause; Y99.8 Other external cause status; I48.2 Chronic atrial fibrillation
CPT/HCPCS: 36415; 36430; 36511; 71045-TC-FY; 73560-TC-RT-FY; 73700-TC-RT; 74018-TC-FY; 76000-TC-FY; 80048; 80053; 81003; 82272; 82607; 82728; 82747; 82962; 83540; 83550; 83605; 84443; 84466; 85014; 85025; 85027; 85610; 85730; 86850; 86900; 86901; 86922; 87040; 87045; 87046; 87077; 87086; 87177; 87186; 87209; 93306-TC; 94640; 94760; 97162-GP; 99285-25; J0131; J0475; J1644; P9038; P9058

== ENCOUNTER 2019-10-12 19:17 | Emergency (ER) | payer OTHER ==
[2019-10-12 19:32] VITALS: TEMP 98.3; BMI 27.2
--- NOTE | 2019-10-12 20:20 | PDOC ---
History of Present Illness - General Chief Complaint: Pain Stated Complaint: ABDOMINAL PAIN Time Seen by Provider: 10/12/19 20:07 Past History - Past Medical History Allergies/Adverse Reactions: Allergies Allergy/AdvReac Type Severity Reaction Status Date / Time oxycodone [Oxycodone] Allergy Severe Nausea Verified 10/13/19 16:56 oxycodone HCl [From Percocet] Allergy Severe Nausea Verified 10/13/19 16:56 aspirin Allergy Mild Verified 10/13/19 16:56 blueberry [Blueberry] Allergy Mild Swelling Verified 10/13/19 16:56 fentanyl Allergy Mild Vomiting Verified 10/13/19 16:56 ibuprofen Allergy Swelling Verified 10/13/19 16:56 aspartame AdvReac Mild Itching Verified 10/13/19 16:56 Home Medications: Ambulatory Orders Rosuvastatin Calcium [Crestor] 10 mg PO DAILY 07/09/18 Montelukast Na [Singulair -] 10 mg PO HS 08/07/18 Topiramate [Topamax -] 100 mg PO DAILY #30 tablet 08/15/18 Cholecalciferol (Vitamin D3) [Vitamin D3 -] 1,000 unit PO DAILY tab 11/09/18 Ranitidine [Zantac -] 150 mg PO DAILY 12/12/18 Venlafaxine HCl ER [Effexor Xr -] 75 mg PO DAILY 12/12/18 Vitamin B Comp W-C [Nephro-Héctor -] 1 tablet PO DAILY 12/12/18 Lactobacillus Acidophilus [Bacid -] 1 tab PO DAILY tab 12/23/18 Sodium Bicarbonate - 650 mg PO TID #30 tablet MDD 3 12/23/18 Albuterol 2.5/Ipratropium 0.5 [Duoneb -] 1 amp NEB RTID amp 12/31/18 Alprazolam [Xanax] 0.25 mg PO Q8H PRN tablet MDD 3 12/31/18 Buspirone HCl [Buspar -] 10 mg PO BID tablet 12/31/18 Clotrimazole [Lotrimin -] 1 applic TP BID tube 12/31/18 Ferrous Sulfate [Feosol] 325 mg PO BIDWM ud 12/31/18 HYDROmorphone [Dilaudid -] 2 mg PO Q6H PRN tablet MDD 4 12/31/18 Levothyroxine [Synthroid -] 75 mcg PO DAILY@0600 tablet 12/31/18 Loperamide HCl [Imodium -] 2 mg PO Q8H PRN capsule 12/31/18 Nystatin Powder [Nystop Powder -] 1 applic TP DAILY applic 12/31/18 Venlafaxine HCl ER [Effexor Xr -] 75 mg PO DAILY@0600 cap.er.24h 12/31/18 Acetaminophen [Tylenol .Regular Strength -] 650 mg PO Q6H PRN tablet 05/28/19 Apixaban [Eliquis -] 5 mg PO BID tablet 05/28/19 Bacitracin - [Bacitracin Topical Ointment -] 1 applic TP DAILY tube 05/28/19 Bismuth Subsalicylate [Pepto-Bismol -] 524 mg PO BID PRN ud 05/28/19 Diphenhydramine HCl [Benadryl Capsule -] 25 mg PO Q6H PRN capsule 05/28/19 Docusate Sodium [Colace -] 100 mg PO TID capsule 05/28/19 HYDROmorphone [Dilaudid -] 2 mg PO Q6H PRN #120 tablet MDD 4 05/28/19 Insulin Sliding Scale [Novolog Vial Sliding Scale -] 1 vial SQ BIDAC units 05/11 Lactobacillus Acidophilus [Bacid -] 1 tab PO DAILY tab 05/28/19 Mineral Oil/Pet Hy-Phl [Aquaphor -] 1 applic TP TID PRN jar 05/28/19 Olanzapine [Zyprexa -] 2.5 mg PO HS tablet 05/28/19 Potassium Chloride [K-Dur -] 20 meq PO DAILY tablet.er 05/28/19 Zolpidem Tartrate [Ambien] 5 mg PO HS PRN #30 tablet MDD 1 05/28/19 Magnesium Hydroxide [Milk of Magnesia -] 5 ml PO Q6H #1 bottle 10/13/19 Magnesium Hydroxide [Milk of Magnesia] 5 ml PO PRN PRN #60 ml 10/13/19 Anemia: Yes Asthma: Yes (COPD, trach #8) Cancer: Yes (UTERINE) Cardiac Disorders: Yes (A-fib) CVA: No COPD: Yes CHF: No Dementia: No Diabetes: Yes GI Disorders: Yes (colitis, SB resection, GERD) Disorders: Yes (KIDNEY STENTS) HTN: Yes Hypercholesterolemia: Yes Liver Disease: No Psychiatric Problems: Yes (ANXIETY) Seizures: Yes (5 yrs ago) Thyroid Disease: No - Surgical History Abdominal Surgery: Yes (BOWEL RESECTION) Appendectomy: Yes (removed 1998) Cardiac Surgery: No Cholecystectomy: No Lung Surgery: No Neurologic Surgery: No Orthopedic Surgery: Yes (Back Sx T7,6) - Immunization History Td Vaccination: Yes TDAP Vaccination: Yes Immunization Up to Date: Yes - Psycho Social/Smoking Cessation Hx Smoking Status: No Smoking History: Never smoked Have you smoked in the past 12 months: No Number of Cigarettes Smoked Daily: 3 If you are a former smoker, when did you quit?: 1997 'Breaking Loose' booklet given: 03/12/15 Hx Alcohol Use: No Drug/Substance Use Hx: No Substance Use Type: None Hx Substance Use Treatment: No *Physical Exam - Vital Signs Last Vital Signs Temp Pulse Resp BP Pulse Ox 98.3 F 84 18 116/90 96 10/12/19 19:30 10/12/19 19:30 10/12/19 19:30 10/12/19 19:30 10/12/19 19:30 ED Treatment Course - LABORATORY CBC & Chemistry Diagram: 10/12/19 23:10 10/12/19 23:15 Medical Decision Making - Medical Decision Making 10/12/19 20:22 HPI: 53yo F hx DM, COPD (s/p tracheostomy, on 2L home O2), asthma, anxiety, depression, chronic back pain, AFib (on Eliquis), CVA x2, HLD, HTN, migraines, uterine CA s/p hyterectomy, SB mass s/p resection, osteomyelitis (of T6 and T7 s /p resection), GERD, psoriasis, and multiple inguinal and umbilical hernias (s/ p surgeries) presents from home with EQUIPMENT [employer]PERAT0R (15/06) c/o 2 days L-sided abdominal pain, gradual onset, worsening, intermittent, throbbing, no improvement with laxative or unknown constipation pill or lorena izabela or hydromorphone 2mg today at 1430, associated with NBNB emesis x6, PO intolerance, and chills. Endorses distended abdomen, constipation, and inability to pass gas since Thursday AM. Also c/o associated reflux-like epigastric burning pain and new epigastric mass. Endorses chronic constipation but usually goes every other day. From Thu- Thu, pt had approx 1tbsp of bright red blood per rectum with rectal pain with defecation, both resolved on Thursday, denies hx hemorrhoids or BRBPR. Denies fever, fatigue, headache, dizziness, numbness/tingling, weakness, vision changes , shortness of breath, cough, chest pain, palpitations, leg swelling, diarrhea, constipation, nausea, vomiting, dysuria, hematuria, urinary retention, confusion , recent abx, recent travel, sick contacts. Abdominal surgeries done in [place], never here. PCP - Dr Manolo Jaquez ROS: Constitutional: Positive for chills. Negative for fever, fatigue, diaphoresis. HENT: Negative for sore throat, rhinorrhea, congestion. Eyes: Negative for visual disturbance. Respiratory: Negative for shortness of breath, cough, and wheezing. Cardiovascular: Negative for chest pain, palpitations, and leg swelling. Gastrointestinal: Positive for epigastric and L-sided abdominal pain, blood in stool, constipation, nausea, vomiting. Negative for diarrhea. Genitourinary: Negative for dysuria, flank pain, and hematuria. Musculoskeletal: Negative for myalgias, back pain, and neck pain. Skin: Positive for chronic psoriasis rash. Neurological: Negative for light-headedness, dizziness, vertigo, syncope, weakness, numbness and headaches. Psychiatric/Behavioral: Negative for behavioral problems and confusion. PE: Gen: Alert, NAD, uncomfortable-appearing. HEENT: PERRL, EOMI, MMM, NCAT. No conjunctival pallor. Sclera are non-icteric. Oropharynx is clear. Tracheostomy CV: Regular rate and rhythm. No murmurs, rubs, or gallops. PULM: No resp distress. CTAB, no wheezes, rales, or rhonchi. ABD: soft with compressible nontender epigastric rubbery mass, distended, +TTP left mid/upper quadrant, no rebound tenderness or guarding, no CVA tenderness. RECTAL: No hanh blood, fissures, skin flaps, or hemorrhoids seen. No masses or hemorrhoids felt. No pain with digital insertion. Hard mobile stool in vault, no fecal impaction. Guiac test negative. BACK: No TTP of c/t/l-spine. No step-offs or deformities. MSK: No bony deformities. 2+ pulses in all extremities. NEURO: AAOx3. PERRL. No gross CN deficits. Strength and sensation grossly intact throughout. EXTREMITIES: No cyanosis. No clubbing. No edema. No calf tenderness. PSYCH: Normal mood and thought pattern. SKIN: Warm and dry. Normal capillary refill. Diffuse psoriasis rash. No jaundice. MDM: 53yo F hx DM, COPD (s/p tracheostomy, on 2L home O2), asthma, anxiety, depression, chronic back pain, AFib (on Eliquis), CVA x2, HLD, HTN, migraines, Uterine CA s/p hyterectomy, SB mass s/p resection, Osteomyelitis (of T6 and T7 s /p resection), psoriasis, and multiple inguinal and umbilical hernias (s/p surgeries) presents from home with EQUIPMENT [employer]PER[employer]0R (15/06) c/o 2 days L-sided abdominal pain , gradual onset, worsening, intermittent, throbbing, no improvement with laxative/unknown constipation pill/hydromorphone, associated with NBNB emesis x6 , PO intolerance, chills, distended abdomen, constipation, inability to pass gas since Thursday AM, epigastric burning pain, and new epigastric mass. Hemodynamically stable, afebrile, +TTP L mid-abdomen, distended abdomen, possible reducable hernia in epigastric area. Ddx: SBO, constipation, diverticulitis, colitis, pancreatitis, gastroenteritis, hernia, GERD, PUD, malignancy, UTI/pyelo, renal stone, metabolic derangement, anemia, lower concern for ACS/MS or pulmonary pathology -CBC,CMP,Coags,Lipase,Mg,Phos,Lact,Cardiac profile,T&S -Stool for occult blood -EKG -CXR -CTAP w/IV contrast -Pepcid,Maalox,Zofran -IVF -Pain management: Morphine 4mg -Dispo: pending w/u 10/12/19 22:[address] Bolivar, pending EKG, labs, CXR, CTAP, pain management, constipation tx Lab called - hemolyzed. Reordered. [place]ton will redraw. Discharge - Discharge Information Problems reviewed: Yes Clinical Impression/Diagnosis: Constipation Qualifiers: Constipation type: unspecified constipation type Qualified Code(s): K59.00 - Constipation, unspecified Condition: Improved Disposition: HOME - Admission No - Additional Discharge Information Prescriptions: Magnesium Hydroxide [Milk of Magnesia] 5 ml PO PRN PRN #60 ml PRN Reason: Constipation Magnesium Hydroxide [Milk of Magnesia -] 5 ml PO Q6H #1 bottle - Follow up/Referral Referrals: Manolo Jaquez [Primary Care Provider] - - Patient Discharge Instructions Patient Printed Discharge Instructions: DI for Constipation Additional Instructions: Please return to the emergency department with any new or worsening symptoms or concerns. Please follow up with your primary care physician within 72 hours. Please take laxatives as directed. - Post Discharge Activity
[2019-10-12] MEDS ORDERED: MAG HYDROX/AL HYDROX/SIMETH 30 ML UNIT-DOSE CUP PO ONE (20:47)
[2019-10-12] MEDS ORDERED: FAMOTIDINE 20 MG/50 ML IVPB 20 MG/50 ML MG IVPB ONE ×2 (20:47→23:01)
[2019-10-12] MEDS ORDERED: ONDANSETRON 4 MG/2 ML VIAL IVPUSH ONE (20:47)
[2019-10-12] MEDS ORDERED: morphine CARPU-JECT 4 MG/1 ML DISP.SYRIN IVPUSH ONE (21:13)
[2019-10-12 22:39] LABS: INR 1.65 (0.83-1.09); PROTHROMBIN TIME (PATIENT) 19.6 SEC (9.7-13.0)
--- NOTE | 2019-10-12 22:46 | PDOC ---
*Physical Exam - Vital Signs Last Vital Signs Temp Pulse Resp BP Pulse Ox 98.3 F 84 18 116/90 96 10/12/19 19:30 10/12/19 19:30 10/12/19 19:30 10/12/19 19:30 10/12/19 19:30 ED Treatment Course - LABORATORY CBC & Chemistry Diagram: 10/12/19 23:10 10/12/19 23:15 - ADDITIONAL ORDERS Additional order review: Laboratory Results 10/12/19 10/12/19 10/12/19 22:20 22:20 22:20 PT with INR 19.60 H INR 1.65 H Phosphorus Magnesium Troponin I Cancelled Lipase Blood Type Cancelled Antibody Screen Cancelled 10/12/19 10/12/19 22:20 22:20 PT with INR INR Phosphorus Cancelled Cancelled Magnesium Cancelled Troponin I Lipase Cancelled Blood Type Antibody Screen Medical Decision Making - Medical Decision Making 10/12/19 22:46 signed out from noon team - pain ctrl - labs - f/u CT labs reviewed 10/13/19 01:12 still has pain s/p 4mg morphine - addtl 4mg morphine - f/u CT read 10/13/19 02:20 CT IOC IMPRESSION: Possible fecal impaction and/or diarrheal illness. Subacute to old left rib fractures. pt passed BM DC home w/ milk of mag; pcp f/u Discharge - Discharge Information Problems reviewed: Yes Clinical Impression/Diagnosis: Constipation Qualifiers: Constipation type: unspecified constipation type Qualified Code(s): K59.00 - Constipation, unspecified - Additional Discharge Information Prescriptions: Magnesium Hydroxide [Milk of Magnesia] 5 ml PO PRN PRN #60 ml PRN Reason: Constipation Magnesium Hydroxide [Milk of Magnesia -] 5 ml PO Q6H #1 bottle - Follow up/Referral Referrals: Manolo Jaquez [Primary Care Provider] - - Patient Discharge Instructions Patient Printed Discharge Instructions: DI for Constipation Additional Instructions: Please return to the emergency department with any new or worsening symptoms or concerns. Please follow up with your primary care physician within 72 hours. Please take laxatives as directed. - Post Discharge Activity
[2019-10-12] MEDS ORDERED: SODIUM CHLORIDE 0.9% 500 ML INFUS.BAG IV ONE (22:47)
[2019-10-12] MEDS ORDERED: morphine SULFATE 4 MG/ML VIAL ONE (23:00)
[2019-10-12] MEDS ORDERED: ONDANSETRON 4 MG/2 ML VIAL ONE (23:01)
[2019-10-12] MEDS ORDERED: MAG HYDROX/AL HYDROX/SIMETH 30 ML UNIT-DOSE CUP ONE (23:01)
[2019-10-12 23:19] LABS: BASO % 0.8 % (0-2.0); EOS % 3.6 % (0-4.5); HEMATOCRIT 39.4 % (32.4-45.2); HEMOGLOBIN 13.1 GM/dL (10.7-15.3); LYMPH % 14.5 % (8-40); MCH 28.6 pg (25.7-33.7); MCHC 33.1 g/dl (32.0-36.0); MEAN CELL VOLUME 86.3 fl (80-96); MEAN PLT VOLUME 8.7 fl (7.5-11.1); NEUT % 76.1 % (42.8-82.8); PLATELET COUNT 304 K/MM3 (134-434); RBC 4.57 M/mm3 (3.60-5.2); RDW 13.7 % (11.6-15.6); WHITE BLOOD COUNT 11.2 K/mm3 (4.0-10.0)
--- NOTE | 2019-10-12 23:23 | PDOC ---
Documentation entered by Bety Uribe SCRIBE, acting as scribe for Mariama Nicholas DO. Mariama Nicholas DO: This documentation has been prepared by the Rony alvarez Xhesika, SCRIBE, under my direction and personally reviewed by me in its entirety. I confirm that the documentation accurately reflects all work, treatment, procedures, and medical decision making performed by me. Attending Attestation - Resident Resident Name: Emily Aguilar - ED Attending Attestation I have performed the following: I have examined & evaluated the patient, The case was reviewed & discussed with the resident, I agree w/resident's findings & plan, Exceptions are as noted - HPI HPI: 10/12/19 21:16 The patient is a 53 year old female with a significant PMH of DM, COPD (s/p tracheostomy, on 2L home O2), asthma, anxiety, depression, chronic back pain, AFib (on Eliquis), CVA x2, HLD, HTN, migraines, Uterine CA s/p hysterectomy, SB mass s/p resection, Osteomyelitis (of T6 and T7 s/p resection) who presents to the emergency department for LLQ abdominal pain. Pt reports inability to pass gas or have a bowel movement. Pt notes she has had 6 episodes of nbnb vomiting today. The patient denies chest pain, shortness of breath, headache. Denies fever, chills, cough, nausea, diarrhea. Denies dysuria, frequency, urgency and hematuria. Allergies: oxycdone, oxycodone HCL, aspirin, blueberry, fentanyl, etc.. Past surgical history: Hysterectomy, Small bowel resection, Appendectomy, Spine surgery, Tracheostomy Social history: Denies tobacco, EtOH or drug use PCP: Dr. Manolo Jaquez GI: [facility]/ [facility] - Physicial Exam PE: 10/12/19 21:59 GENERAL: Awake, alert, and fully oriented, in no acute distress HEAD: No signs of trauma EYES: PERRLA, EOMI, sclera anicteric, conjunctiva clear ENT: Auricles normal inspection, hearing grossly normal, nares patent. Moist mucosa. + trach in place, 40% blow by mask. NECK: Normal ROM, supple, no lymphadenopathy, JVD, or masses LUNGS: Breath sounds equal, clear to auscultation bilaterally. No wheezes, and no crackles HEART: +tachy. no murmurs, rubs or gallops ABDOMEN: + distended abdomen. + well healed large midline incision. (+) LLQ tenderness to palpation. Soft, normoactive bowel sounds. No guarding, no rebound. No masses EXTREMITIES: + trace pitting edema to ankles. Normal range of motion. No clubbing or cyanosis. No cords, erythema, or tenderness NEUROLOGICAL: Cranial nerves II through XII grossly intact. SKIN: Warm, Dry, normal turgor, no rashes or lesions noted. - Medical Decision Making 10/12/19 23:06 I, Dr. Mariama Nicholas, DO, attest that this document has been prepared under my direction and personally reviewed by me in its entirety. I further attest, that it accurately reflects all work, treatment, procedures and medical decision -making performed by me. a/p: 53yo female with abd pain and constipatin -6 episodes of n/v -pt with L sided abd pain -hard bm on thursday with blood tinged stool -hx of multiple abd sx -concern for obstruction vs constipation -rectal showed some hard stool at the finger tip per the resident -will send labs, ua, ct abd/pelvis -will monitor and reassess 10/12/19 23:23 cxr clear trach in place 10/13/19 01:20 pt with constipation and stool in the sigmoid colon 10/13/19 01:25 resident to perform disimpaction Heart Score/ECG Review - ECG Intrepretation Comment:: 10/12/19 23:22 sinus tach at 115, nl axis, nl interval, no acute st/t wave findings
[2019-10-12] MEDS ORDERED: MINERAL OIL ENEMA 133 ML ENEMA PR ONE (23:33)
[2019-10-12 23:42] LABS: ALK PHOS 216 U/L (45-117); ANION GAP 10 MMOL/L (8-16); BILIRUBIN,TOTAL 0.2 mg/dL (0.2-1); BLOOD UREA NITROGEN 27.6 mg/dL (7-18); CHLORIDE 94 mmol/L (98-107); CO2 29 mmol/L (21-32); CREATININE 1.1 mg/dL (0.55-1.3); GLUCOSE,RANDOM 187 mg/dL (74-106); LIPASE 304 U/L (73-393); MAGNESIUM 2.3 mg/dL (1.8-2.4); PHOSPHOROUS 4.5 mg/dL (2.5-4.9); POTASSIUM 4.4 mmol/L (3.5-5.1); SGOT/AST 9 U/L (15-37); SGPT/ALT 17 U/L (13-61); SODIUM 133 mmol/L (136-145); TOT PROT 7.3 g/dl (6.4-8.2)
[2019-10-13] MEDS ORDERED: morphine CARPU-JECT 4 MG/1 ML DISP.SYRIN IVPUSH ONE (01:10)
[2019-10-13] MEDS ORDERED: morphine SULFATE 4 MG/ML VIAL ONE (01:30)
[2019-10-13] MEDS ORDERED: ONDANSETRON 4 MG/2 ML VIAL IVPUSH ONE (01:41)
[2019-10-13] MEDS ORDERED: ONDANSETRON 4 MG/2 ML VIAL ONE (01:46)
[2019-10-13] MEDS ORDERED: MAGNESIUM HYDROX 2400MG/30ML ORAL SUSPENSION 30 ML CUP PO ONE (02:09)
[2019-10-13] MEDS ORDERED: BISACODYL 10 MG SUPP.RECT PR ONE (02:09)
[2019-10-13 03:11] VITALS: BP 120/90; PULSE 90
--- NOTE | 2019-10-13 12:39 | EKG ---
Test Reason : Blood Pressure : / mmHG Vent. Rate : 115 BPM Atrial Rate : 115 BPM P-R Int : 170 ms QRS Dur : 080 ms QT Int : 328 ms P-R-T Axes : 048 001 066 degrees QTc Int : 453 ms SINUS TACHYCARDIA OTHERWISE NORMAL ECG WHEN COMPARED WITH ECG OF 27-DEC-2018 11:43, SINUS RHYTHM HAS REPLACED ATRIAL FLUTTER Confirmed by NICK CODY MD ([id number]) on 10/13/2019 12:38:34 PM Referred By: Confirmed By:NICK CODY MD
== END 2019-10-13 03:12 | disposition home or self-care (01) ==
LOC: JER 19:17
PROC: 3E033NZ Introduction of Analgesics, Hypnotics, Sedatives into Peripheral Vein, Percutaneous Approach (ICD-10-PCS; principal; 2019-10-12)
PROC: 3E033GC Introduction of Other Therapeutic Substance into Peripheral Vein, Percutaneous Approach (ICD-10-PCS; 2019-10-12)
PROC: 3E0337Z Introduction of Electrolytic and Water Balance Substance into Peripheral Vein, Percutaneous Approach (ICD-10-PCS; 2019-10-12)
DX: K59.00 Constipation, unspecified (principal)
CPT/HCPCS: 36415; 71045-TC-FY; 74177-TC; 80053; 82272; 82550; 83605; 83690; 83735; 84100; 84484; 85025; 85610; 85730; 86850; 86900; 86901; 93005; 93010; 99284-25

== ENCOUNTER 2019-10-13 15:54 | Emergency (ER) | payer OTHER ==
[2019-10-13 16:22] VITALS: TEMP 97.9; BMI 27.2
--- NOTE | 2019-10-13 16:43 | PDOC ---
History of Present Illness - General Chief Complaint: Pain, Acute Stated Complaint: ABD PAIN Time Seen by Provider: 10/13/19 16:41 - History of Present Illness Initial Comments: 10/13/19 17:37 The patient is a 53 year old female with a significant PMH of DM, COPD (s/p tracheostomy, on 2L home O2), asthma, anxiety, depression, chronic back pain, AFib (on Eliquis), CVA x2, HLD, HTN, migraines, Uterine CA s/p hysterectomy, SB mass s/p resection, Osteomyelitis (of T6 and T7 s/p resection) who presents to the emergency department for nausea, diarrhea, and lower back pain associated with multiple BMs. Per the pt she came to the ED yesterday because she was constipated. CT of her abdomen revealed impacted stool and the pt was given an enema and manual disimpaction. Today the pt reports she has had 4-5 episodes of watery brown stool, she feels nauseated and also reports low back pain which began when she was straining on the toilette. The pt has no other complaints and denies CP, SOB, vomiting, lower extremity pain/ weakness, numbness or tinging in her hands or feet, or hot/ cold intolerance. Past History - Past Medical History Allergies/Adverse Reactions: Allergies Allergy/AdvReac Type Severity Reaction Status Date / Time oxycodone [Oxycodone] Allergy Severe Nausea Verified 10/13/19 16:56 oxycodone HCl [From Percocet] Allergy Severe Nausea Verified 10/13/19 16:56 aspirin Allergy Mild Verified 10/13/19 16:56 blueberry [Blueberry] Allergy Mild Swelling Verified 10/13/19 16:56 fentanyl Allergy Mild Vomiting Verified 10/13/19 16:56 ibuprofen Allergy Swelling Verified 10/13/19 16:56 aspartame AdvReac Mild Itching Verified 10/13/19 16:56 Home Medications: Ambulatory Orders Rosuvastatin Calcium [Crestor] 10 mg PO DAILY 07/09/18 Montelukast Na [Singulair -] 10 mg PO HS 08/07/18 Topiramate [Topamax -] 100 mg PO DAILY #30 tablet 08/15/18 Cholecalciferol (Vitamin D3) [Vitamin D3 -] 1,000 unit PO DAILY tab 11/09/18 Ranitidine [Zantac -] 150 mg PO DAILY 12/12/18 Venlafaxine HCl ER [Effexor Xr -] 75 mg PO DAILY 12/12/18 Vitamin B Comp W-C [Nephro-Héctor -] 1 tablet PO DAILY 12/12/18 Lactobacillus Acidophilus [Bacid -] 1 tab PO DAILY tab 12/23/18 Sodium Bicarbonate - 650 mg PO TID #30 tablet MDD 3 12/23/18 Albuterol 2.5/Ipratropium 0.5 [Duoneb -] 1 amp NEB RTID amp 12/31/18 Alprazolam [Xanax] 0.25 mg PO Q8H PRN tablet MDD 3 12/31/18 Buspirone HCl [Buspar -] 10 mg PO BID tablet 12/31/18 Clotrimazole [Lotrimin -] 1 applic TP BID tube 12/31/18 Ferrous Sulfate [Feosol] 325 mg PO BIDWM ud 12/31/18 HYDROmorphone [Dilaudid -] 2 mg PO Q6H PRN tablet MDD 4 12/31/18 Levothyroxine [Synthroid -] 75 mcg PO DAILY@0600 tablet 12/31/18 Loperamide HCl [Imodium -] 2 mg PO Q8H PRN capsule 12/31/18 Nystatin Powder [Nystop Powder -] 1 applic TP DAILY applic 12/31/18 Venlafaxine HCl ER [Effexor Xr -] 75 mg PO DAILY@0600 cap.er.24h 12/31/18 Acetaminophen [Tylenol .Regular Strength -] 650 mg PO Q6H PRN tablet 05/28/19 Apixaban [Eliquis -] 5 mg PO BID tablet 05/28/19 Bacitracin - [Bacitracin Topical Ointment -] 1 applic TP DAILY tube 05/28/19 Bismuth Subsalicylate [Pepto-Bismol -] 524 mg PO BID PRN ud 05/28/19 Diphenhydramine HCl [Benadryl Capsule -] 25 mg PO Q6H PRN capsule 05/28/19 Docusate Sodium [Colace -] 100 mg PO TID capsule 05/28/19 HYDROmorphone [Dilaudid -] 2 mg PO Q6H PRN #120 tablet MDD 4 05/28/19 Insulin Sliding Scale [Novolog Vial Sliding Scale -] 1 vial SQ BIDAC units 05/11 Lactobacillus Acidophilus [Bacid -] 1 tab PO DAILY tab 05/28/19 Mineral Oil/Pet Hy-Phl [Aquaphor -] 1 applic TP TID PRN jar 05/28/19 Olanzapine [Zyprexa -] 2.5 mg PO HS tablet 05/28/19 Potassium Chloride [K-Dur -] 20 meq PO DAILY tablet.er 05/28/19 Zolpidem Tartrate [Ambien] 5 mg PO HS PRN #30 tablet MDD 1 05/28/19 Magnesium Hydroxide [Milk of Magnesia -] 5 ml PO Q6H #1 bottle 10/13/19 Magnesium Hydroxide [Milk of Magnesia] 5 ml PO PRN PRN #60 ml 10/13/19 Anemia: Yes Asthma: Yes (COPD, trach #8) Cancer: Yes (UTERINE) Cardiac Disorders: Yes (A-fib) CVA: No COPD: Yes CHF: No Dementia: No Diabetes: Yes GI Disorders: Yes (colitis, SB resection, GERD) Disorders: Yes (KIDNEY STENTS) HTN: Yes Hypercholesterolemia: Yes Liver Disease: No Psychiatric Problems: Yes (ANXIETY) Seizures: Yes (5 yrs ago) Thyroid Disease: No - Surgical History Abdominal Surgery: Yes (BOWEL RESECTION) Appendectomy: Yes (removed 1998) Cardiac Surgery: No Cholecystectomy: No Lung Surgery: No Neurologic Surgery: No Orthopedic Surgery: Yes (Back Sx T7,6) - Immunization History Td Vaccination: Yes TDAP Vaccination: Yes Immunization Up to Date: Yes - Psycho Social/Smoking Cessation Hx Smoking Status: No Smoking History: Former smoker Have you smoked in the past 12 months: No Number of Cigarettes Smoked Daily: 3 If you are a former smoker, when did you quit?: 1997 Information on smoking cessation initiated: No 'Breaking Loose' booklet given: 03/12/15 Hx Alcohol Use: No Drug/Substance Use Hx: No Substance Use Type: None Hx Substance Use Treatment: No Review of Systems - Review of Systems Is the patient limited Bengali proficient: No Constitutional: No: Chills, Diaphoresis, Fever, Unintentional Wgt. Loss HEENTM: No: Recent change in vision, Ear Pain, Throat Pain Respiratory: Yes: Cough (chronic and productive). No: Shortness of Breath Cardiac (ROS): No: Chest Pain, Edema, Palpitations, Syncope ABD/GI: Yes: Diarrhea, Nausea. No: Rectal Bleeding, Vomiting : No: Burning, Dysuria, Frequency Musculoskeletal: Yes: Back Pain Integumentary: Yes: Rash (psoriatic rash) Neurological: Yes: Weakness (chronic weaknless LLE s/p CVA). No: Numbness, Paresthesia *Physical Exam - Vital Signs Last Vital Signs Temp Pulse Resp BP Pulse Ox 97.9 F 72 18 110/74 98 10/13/19 16:15 10/13/19 16:15 10/13/19 16:15 10/13/19 16:15 10/13/19 16:15 - Physical Exam General Appearance: Yes: Nourished, Obese. No: Apparent Distress HEENT: positive: EOMI, AYESHA, Normal Voice. negative: Pharynx Normal Neck: positive: Trachea midline, Supple Respiratory/Chest: positive: Wheezing (expiratory wheezes heard throughout the posterior lung garcia). negative: Crackles, Rales, Rhonchi Cardiovascular: positive: Regular Rhythm, Regular Rate, S1, S2. negative: JVD, Murmur Gastrointestinal/Abdominal: positive: Normal Bowel Sounds. negative: Tender, Soft, Organomegaly, Guarding, Rebound Extremity: positive: Normal Capillary Refill, Normal Range of Motion. 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 NML intact, Fully Oriented, Alert, Normal Mood/ Affect, Other (5/5 strength RLE, 3/5 strength LLE ) ED Treatment Course - LABORATORY CBC & Chemistry Diagram: 10/13/19 17:37 10/13/19 17:37 Medical Decision Making - Medical Decision Making 10/13/19 17:49 The patient is a 53 year old female with a significant PMH of DM, COPD (s/p tracheostomy, on 2L home O2), asthma, anxiety, depression, chronic back pain, AFib (on Eliquis), CVA x2, HLD, HTN, migraines, Uterine CA s/p hysterectomy, SB mass s/p resection, Osteomyelitis (of T6 and T7 s/p resection) who presents to the emergency department for nausea, diarrhea, and lower back pain associated with multiple BMs. Will obtain bloodwork to assess for any electrolyte abnormalities 2/2 diarrhea - CBC - CMP - Zofran for nausea - 2mg Dilauded PO, pt's home pain med 10/13/19 19:00 Pt labs were unremarkable, she had no further episodes of diarrhea while in the ED. Stated her nausea resolved with the zofran and she felt ready to go home. stable for d/c home with plans for f/u with her pcp 10/13/19 19:08 Discharge - Discharge Information Problems reviewed: Yes Clinical Impression/Diagnosis: Diarrhea Qualifiers: Diarrhea type: unspecified type Qualified Code(s): R19.7 - Diarrhea, unspecified Condition: Good Disposition: HOME - Admission No - Follow up/Referral Referrals: Manolo Jaquez [Primary Care Provider] - - Patient Discharge Instructions Patient Printed Discharge Instructions: DI for Diarrhea and Traveler's Diarrhea -- Adult - Post Discharge Activity
[2019-10-13] MEDS ORDERED: ONDANSETRON 4 MG TABLET PO ONE (17:32)
[2019-10-13] MEDS ORDERED: HYDROmorphone HCL 2 MG TABLET PO ONE (17:35)
[2019-10-13] MEDS ORDERED: ONDANSETRON *ODT* 4 MG TABLET SL ONE (17:35)
[2019-10-13] MEDS ORDERED: ONDANSETRON *ODT* 4 MG TABLET ONE (17:38)
[2019-10-13] MEDS ORDERED: HYDROmorphone HCL 2 MG TABLET ONE (17:59)
[2019-10-13 18:00] LABS: BASO % 0.9 % (0-2.0); EOS % 4.4 % (0-4.5); HEMATOCRIT 37.8 % (32.4-45.2); HEMOGLOBIN 12.5 GM/dL (10.7-15.3); LYMPH % 11.5 % (8-40); MCH 28.7 pg (25.7-33.7); MCHC 33.2 g/dl (32.0-36.0); MEAN CELL VOLUME 86.4 fl (80-96); MEAN PLT VOLUME 8.4 fl (7.5-11.1); MONO % 5.1 % (3.8-10.2); NEUT % 78.1 % (42.8-82.8); PLATELET COUNT 272 K/MM3 (134-434); RBC 4.37 M/mm3 (3.60-5.2); RDW 13.9 % (11.6-15.6); WHITE BLOOD COUNT 9.9 K/mm3 (4.0-10.0)
[2019-10-13 18:30] LABS: ALBUMIN 3.1 g/dl (3.4-5.0); BILIRUBIN,TOTAL 0.1 mg/dL (0.2-1); BLOOD UREA NITROGEN 24.4 mg/dL (7-18); CALCIUM 8.5 mg/dL (8.5-10.1); TOT PROT 7.1 g/dl (6.4-8.2)
--- NOTE | 2019-10-13 19:06 | PDOC ---
Attending Attestation - Resident Resident Name: Barbara Traylor - ED Attending Attestation I have performed the following: I have examined & evaluated the patient, The case was reviewed & discussed with the resident, I agree w/resident's findings & plan, Exceptions are as noted - HPI HPI: 10/13/19 18:58 Agree with resident HPI - Physicial Exam PE: 10/13/19 18:59 Agree with resident exam - Medical Decision Making 10/13/19 18:59 53-year-old female with multiple medical problems presents to the emergency department with 4 episodes of brown, nonbloody watery diarrhea after she was given an enema for constipation yesterday during ED visit. Patient was also manually disimpacted at the time. Patient likely has diarrhea secondary to the enema. She does not appear overtly fluid dehydrated. Her abdominal exam is benign. She is also reporting low back pain, however patient states this is her chronic low back pain and is unchanged today. Her pain is improved with her home dose of PO dilaudid. Her labs are at baseline. She is clinically stable for DC back to [place] I discussed the physical exam findings, ancillary test results and final diagnoses with the patient. I answered all of the patient's questions. The patient was satisfied with the care received and felt comfortable with the discharge plan and treatment plan. The patient will call their primary care physician within 24 hours to arrange follow-up and will return to the Emergency Department with any new, persistent or worsening symptoms.
[2019-10-13 19:12] VITALS: BP 107/70; PULSE 112
== END 2019-10-13 21:08 | disposition home or self-care (01) ==
LOC: JER 15:54
DX: R19.7 Diarrhea, unspecified (principal); M54.5 Low back pain; G89.29 Other chronic pain; I10 Essential (primary) hypertension; I48.91 Unspecified atrial fibrillation; Z79.01 Long term (current) use of anticoagulants; E11.9 Type 2 diabetes mellitus without complications; Z79.4 Long term (current) use of insulin; J45.998 Other asthma; J44.9 Chronic obstructive pulmonary disease, unspecified; Z93.0 Tracheostomy status; Z99.81 Dependence on supplemental oxygen; F41.9 Anxiety disorder, unspecified; F32.9 Major depressive disorder, single episode, unspecified; E78.5 Hyperlipidemia, unspecified; I69.8 Sequelae of other cerebrovascular diseases; Z85.42 Personal history of malignant neoplasm of other parts of uterus; Z90.710 Acquired absence of both cervix and uterus; Z90.49 Acquired absence of other specified parts of digestive tract; Z87.39 Personal history of other diseases of the musculoskeletal system and connective tissue; Z86.69 Personal history of other diseases of the nervous system and sense organs; Z96.0 Presence of urogenital implants; Z87.891 Personal history of nicotine dependence; Z88.5 Allergy status to narcotic agent; Z88.6 Allergy status to analgesic agent; Z91.018 Allergy to other foods
CPT/HCPCS: 36415; 80053; 85025; 99282-25; Q0162

== ENCOUNTER 2019-10-15 13:50 | Emergency (ER) | payer OTHER ==
[2019-10-15 14:13] VITALS: BMI 27.2
--- NOTE | 2019-10-15 15:00 | PDOC ---
Attending Attestation - Resident Resident Name: Barbara Traylor - ED Attending Attestation I have performed the following: I have examined & evaluated the patient, The case was reviewed & discussed with the resident, I agree w/resident's findings & plan, Exceptions are as noted - HPI HPI: 10/15/19 16:12 Ms Figueroa is a 53 yo F h/o DM, COPD (s/p tracheostomy, on 2L home O2), asthma, anxiety, depression, chronic back pain, AFib (on Eliquis), CVA x2 with residual weakness, HLD, HTN, migraines, Uterine CA s/p hysterectomy, SB mass s/p resection, Osteomyelitis (of T6 and T7 s/p resection) who presents to the emergency department again for LLQ abdominal pain and constipation. Pt was seen in the ER on 10/12, 10/13 for constipation and abdominal pain. CT scan was performed on 10/13 and revealed moderate dilation of the entire colon with contains fluid and residual feval material, most marked in the sigmoid and rectum. Pt was given an enema, had diarrhea that day and the following day Since then she has noted no bowel movements Pt presents with a complaint of abdominal pain, no flatus No fevers or chills No vomiting Tolerating po Denies dysuria, frequency, urgency and hematuria. Allergies: oxycdone, oxycodone HCL, aspirin, blueberry, fentanyl, etc.. Past surgical history: Hysterectomy, Small bowel resection, Appendectomy, Spine surgery, Tracheostomy Social history: Denies tobacco, EtOH or drug use PCP: Dr. Manolo Jaquez GI: [facility]/ [facility] 10/15/19 16:13 10/15/19 16:18 10/15/19 16:46 10/15/19 16:58 - Physicial Exam PE: 10/15/19 15:00 GENERAL: Awake, alert, and fully oriented, in no acute distress HEAD: No signs of trauma EYES: PERRLA, EOMI, sclera anicteric, conjunctiva clear ENT: Auricles normal inspection, hearing grossly normal, nares patent. Moist mucosa. + trach in place, 40% blow by mask. NECK: Normal ROM, supple, no lymphadenopathy, JVD, or masses LUNGS: Breath sounds equal, clear to auscultation bilaterally. No wheezes, and no crackles HEART: +tachy. no murmurs, rubs or gallops ABDOMEN: + distended abdomen. + well healed large midline incision. (+) LLQ tenderness to palpation. Soft, normoactive bowel sounds. No guarding, no rebound. No masses EXTREMITIES: + trace pitting edema to ankles. Normal range of motion. No clubbing or cyanosis. No cords, erythema, or tenderness NEUROLOGICAL: Cranial nerves II through XII grossly intact. SKIN: Warm, Dry, normal turgor, no rashes or lesions noted. - Medical Decision Making 10/15/19 16:13 A/P: 53yo female with abd pain and constipation Multiple visits to the ER for abdominal pain We will do: Labs Flat and upright abdominal x-ray Enema Patient would like to be discharged home
--- NOTE | 2019-10-15 15:48 | PDOC ---
History of Present Illness - General Chief Complaint: Pain Stated Complaint: ABDOMINAL PAIN Time Seen by Provider: 10/15/19 14:37 - History of Present Illness Initial Comments: The patient is a 53 year old female with a significant PMH of DM, COPD (s/p tracheostomy, on 2L home O2), asthma, anxiety, depression, chronic back pain, AFib (on Eliquis), CVA x2, HLD, HTN, migraines, Uterine CA s/p hysterectomy, SB mass s/p resection, Osteomyelitis (of T6 and T7 s/p resection) who presents to the emergency department for nausea, constipation, and lower back pain. Per the pt she came to the ED on Thursday because she was constipated. CT of her abdomen revealed impacted stool and the pt was given an enema and manual disimpaction. on the pt returned to the ED reporting she has had 4-5 episodes of watery brown stool, she felt nauseated and also reported low back pain. She was observed in the ED and sent home after she tolerated a diet and had not further episodes of diarrhea. She reports that when she went home she was passing gas but had no other BMs. Today she reports she was no longer passing gas and felt that her abdomen was distended. She was also reporting L sided abdominal pain. The pt has no other complaints and denies CP, SOB, vomiting, lower extremity pain/ weakness, numbness or tinging in her hands or feet, or hot/ cold intolerance. 10/15/19 15:48 Past History - Past Medical History Allergies/Adverse Reactions: Allergies Allergy/AdvReac Type Severity Reaction Status Date / Time oxycodone [Oxycodone] Allergy Severe Nausea Verified 10/15/19 14:12 oxycodone HCl [From Percocet] Allergy Severe Nausea Verified 10/15/19 14:12 aspirin Allergy Mild Verified 10/15/19 14:12 blueberry [Blueberry] Allergy Mild Swelling Verified 10/15/19 14:12 fentanyl Allergy Mild Vomiting Verified 10/15/19 14:12 ibuprofen Allergy Swelling Verified 10/15/19 14:12 aspartame AdvReac Mild Itching Verified 10/15/19 14:12 Home Medications: Ambulatory Orders Rosuvastatin Calcium [Crestor] 10 mg PO DAILY 07/09/18 Montelukast Na [Singulair -] 10 mg PO HS 08/07/18 Topiramate [Topamax -] 100 mg PO DAILY #30 tablet 08/15/18 Cholecalciferol (Vitamin D3) [Vitamin D3 -] 1,000 unit PO DAILY tab 11/09/18 Ranitidine [Zantac -] 150 mg PO DAILY 12/12/18 Venlafaxine HCl ER [Effexor Xr -] 75 mg PO DAILY 12/12/18 Vitamin B Comp W-C [Nephro-Héctor -] 1 tablet PO DAILY 12/12/18 Lactobacillus Acidophilus [Bacid -] 1 tab PO DAILY tab 12/23/18 Sodium Bicarbonate - 650 mg PO TID #30 tablet MDD 3 12/23/18 Albuterol 2.5/Ipratropium 0.5 [Duoneb -] 1 amp NEB RTID amp 12/31/18 Alprazolam [Xanax] 0.25 mg PO Q8H PRN tablet MDD 3 12/31/18 Buspirone HCl [Buspar -] 10 mg PO BID tablet 12/31/18 Clotrimazole [Lotrimin -] 1 applic TP BID tube 12/31/18 Ferrous Sulfate [Feosol] 325 mg PO BIDWM ud 12/31/18 HYDROmorphone [Dilaudid -] 2 mg PO Q6H PRN tablet MDD 4 12/31/18 Levothyroxine [Synthroid -] 75 mcg PO DAILY@0600 tablet 12/31/18 Loperamide HCl [Imodium -] 2 mg PO Q8H PRN capsule 12/31/18 Nystatin Powder [Nystop Powder -] 1 applic TP DAILY applic 12/31/18 Venlafaxine HCl ER [Effexor Xr -] 75 mg PO DAILY@0600 cap.er.24h 12/31/18 Acetaminophen [Tylenol .Regular Strength -] 650 mg PO Q6H PRN tablet 05/28/19 Apixaban [Eliquis -] 5 mg PO BID tablet 05/28/19 Bacitracin - [Bacitracin Topical Ointment -] 1 applic TP DAILY tube 05/28/19 Bismuth Subsalicylate [Pepto-Bismol -] 524 mg PO BID PRN ud 05/28/19 Diphenhydramine HCl [Benadryl Capsule -] 25 mg PO Q6H PRN capsule 05/28/19 Docusate Sodium [Colace -] 100 mg PO TID capsule 05/28/19 HYDROmorphone [Dilaudid -] 2 mg PO Q6H PRN #120 tablet MDD 4 05/28/19 Insulin Sliding Scale [Novolog Vial Sliding Scale -] 1 vial SQ BIDAC units 05/11 Lactobacillus Acidophilus [Bacid -] 1 tab PO DAILY tab 05/28/19 Mineral Oil/Pet Hy-Phl [Aquaphor -] 1 applic TP TID PRN jar 05/28/19 Olanzapine [Zyprexa -] 2.5 mg PO HS tablet 05/28/19 Potassium Chloride [K-Dur -] 20 meq PO DAILY tablet.er 05/28/19 Zolpidem Tartrate [Ambien] 5 mg PO HS PRN #30 tablet MDD 1 05/28/19 Magnesium Hydroxide [Milk of Magnesia -] 5 ml PO Q6H #1 bottle 10/13/19 Magnesium Hydroxide [Milk of Magnesia] 5 ml PO PRN PRN #60 ml 10/13/19 Anemia: Yes Asthma: Yes (COPD, trach #8) Cancer: Yes (UTERINE) Cardiac Disorders: Yes (A-fib) CVA: No COPD: Yes CHF: No Dementia: No Diabetes: Yes GI Disorders: Yes (colitis, SB resection, GERD) Disorders: Yes (KIDNEY STENTS) HTN: Yes Hypercholesterolemia: Yes Liver Disease: No Psychiatric Problems: Yes (ANXIETY) Seizures: Yes (5 yrs ago) Thyroid Disease: No - Surgical History Abdominal Surgery: Yes (BOWEL RESECTION) Appendectomy: Yes (removed 1998) Cardiac Surgery: No Cholecystectomy: No Lung Surgery: No Neurologic Surgery: No Orthopedic Surgery: Yes (Back Sx T7,6) - Immunization History Td Vaccination: Yes TDAP Vaccination: Yes Immunization Up to Date: Yes - Psycho Social/Smoking Cessation Hx Smoking Status: No Smoking History: Unknown if ever smoked Have you smoked in the past 12 months: No Number of Cigarettes Smoked Daily: 3 If you are a former smoker, when did you quit?: 1997 Information on smoking cessation initiated: No 'Breaking Loose' booklet given: 03/12/15 Hx Alcohol Use: No Drug/Substance Use Hx: No Substance Use Type: None Hx Substance Use Treatment: No Review of Systems - Review of Systems Able to Perform ROS?: Yes Is the patient limited [place] proficient: No Constitutional: No: Chills, Fever, Night Sweats, Weakness HEENTM: No: Recent change in vision, Ear Pain, Throat Pain Respiratory: No: Cough, Shortness of Breath, Productive cough Cardiac (ROS): No: Chest Pain, Lightheadedness, Palpitations, Syncope ABD/GI: Yes: Abdominal Distended, Abd. Pain w/ defecation, Constipated, Nausea, Poor Appetite. No: Diarrhea, Vomiting : No: Burning, Dysuria, Discharge, Hematuria Musculoskeletal: Yes: Back Pain. No: Joint Pain, Joint Swelling, Neck Pain Integumentary: Yes: Rash Neurological: Yes: Pre-Existing Deficit. No: Headache, Numbness, Paresthesia Endocrine: No: Excessive Sweating, Flushing, Unexplained Weight Gain, Unexplained Weight Loss All Other Systems: Reviewed and Negative *Physical Exam - Vital Signs Last Vital Signs Temp Pulse Resp BP Pulse Ox 98.1 F 113 H 18 123/81 96 10/15/19 13:50 10/15/19 13:50 10/15/19 13:50 10/15/19 13:50 10/15/19 13:50 - Physical Exam General Appearance: Yes: Nourished, Appropriately Dressed, Apparent Distress, Mild Distress, Obese HEENT: positive: EOMI, AYESHA, Normal ENT Inspection, Normal Voice, Sinus Tenderness Neck: positive: Trachea midline, Supple. negative: Tender Respiratory/Chest: positive: Lungs Clear, Normal Breath Sounds. negative: Respiratory Distress, Accessory Muscle Use, Rales, Rhonchi, Wheezing Cardiovascular: positive: Regular Rhythm, Regular Rate, S1, S2. negative: Edema , JVD, Murmur Gastrointestinal/Abdominal: positive: Tender, Soft, Increased Bowel Sounds, Distended. negative: Guarding, Rebound Rectal Exam: positive: normal rectal tone, other (hard feces felt in rectal vault, brown stool on glove). negative: hemorrhoids Musculoskeletal: positive: Normal Inspection. negative: CVA Tenderness Extremity: positive: Normal Capillary Refill, Normal Range of Motion, Other ( psoriatic rash on upper and lower extremities). negative: Tender, Calf Tenderness, Erythema Integumentary: positive: Normal Color, Dry, Warm, Rash (psoriatic rash on extremities, abdomen and scalp, improving since previous exam) Neurologic: positive: personal care service provider II-XII NML intact, Fully Oriented, Alert, Normal Mood/ Affect, Other (motor strength 5/5 except LLE 3/5 2/2 old CVA) ED Treatment Course - LABORATORY CBC & Chemistry Diagram: 10/15/19 19:45 10/15/19 19:45 - RADIOLOGY Radiology Studies Ordered: Category Date Time Status ABDOMEN FLAT & UPRIGHT [RAD] Stat Radiology 10/15/19 15:34 Ordered Medical Decision Making - Medical Decision Making 10/15/19 17:27 The patient is a 53 year old female with a significant PMH of DM, COPD (s/p tracheostomy, on 2L home O2), asthma, anxiety, depression, chronic back pain, AFib (on Eliquis), CVA x2, HLD, HTN, migraines, Uterine CA s/p hysterectomy, SB mass s/p resection, Osteomyelitis (of T6 and T7 s/p resection) who presents to the emergency department for nausea, constipation, and lower back pain. Given the patient's history and physical exam findings it is possible that her abdominal pain, distention, and constipation could be caused by gastroparesis, possibly 2/2 to her dilauded use or diabetes. - CBC - CMP - cardiac profile - LA - Lipase - upright abdominal x-ray - enema - zofran for nausea - 2mg dilauded q6h for pain 6-10, pt home dose 10/15/19 20:35 Pt received her abdominal x-ray, showed gasseous distention of the colon but no air fluid levels or obvious signs of obstruction. There was retained stool in the distal colon. Attempted to obtain an US guided IV without success, was able to draw labs for patient. Will f/u. Pt reports nausea is improved after zofran but is still in pain. 10/15/19 23:41 Pt given enema and relistore. Pt reports she is passing gas now but still no BM. Otherwise stable for discharge home with plans to f/u with her pain management doctor to reassess her pain regimen. 10/15/19 23:42 Pt assessed after enema, is stable for discharge home with instructions to f/u with her PCP within 1 week. Discharge - Discharge Information Problems reviewed: Yes Clinical Impression/Diagnosis: Gas pain Condition: Stable Disposition: HOME - Admission No - Additional Discharge Information Goals: You were in the hospital because you had constipation and abdominal distention. Your symptoms are likely caused by the fact that your GI system moves too slowly which allows time for stool and gas to build up in your colon. This can be very painful and cause your belly to be distended. Your GI system might move slowly because of your pain medicine or your diabetes. You should follow up with your primary care doctor and your pain management doctor to assess alternative options for pain control and better ways to manage your constipation. If you have worsening abdominal pain, distention, vomiting, or constipation that lasts more than 4 days please return to the emergency department immediately. - Follow up/Referral Referrals: Manolo Jaquez [Primary Care Provider] - 1 week - Patient Discharge Instructions Patient Printed Discharge Instructions: Eating a Diet Rich in Fruits and Vegetables, DI for Constipation, DI for Prescription Opioid Use Additional Instructions: You were in the hospital because you had constipation and abdominal distention. Your symptoms are likely caused by the fact that your GI system moves too slowly which allows time for stool and gas to build up in your colon. This can be very painful and cause your belly to be distended. Your GI system might move slowly because of your pain medicine or your diabetes. You should follow up with your primary care doctor and your pain management doctor to assess alternative options for pain control and better ways to manage your constipation. If you have worsening abdominal pain, distention, vomiting, or constipation that lasts more than 4 days please return to the emergency department immediately. - Post Discharge Activity
[2019-10-15] MEDS ORDERED: HYDROmorphone HCL 2 MG TABLET PO PRN (17:04)
[2019-10-15] MEDS ORDERED: ONDANSETRON 4 MG TABLET PO ONE (17:05)
[2019-10-15] MEDS ORDERED: HYDROmorphone HCL 2 MG TABLET ONE (17:06)
[2019-10-15] MEDS ORDERED: ONDANSETRON *ODT* 4 MG TABLET ONE (17:07)
[2019-10-15 17:29] LABS: EPI CELLS 0.8 /HPF (0-5/HPF); HYALINE CASTS 1 /lpf (0-8); URINE APPEARANCE CLEAR; URINE BACTERIA 29.1 /hpf (NEGATIVE); URINE BILIRUBIN NEGATIVE (NEGATIVE); URINE COLOR YELLOW; URINE GLUCOSE (UA) NEGATIVE (NEGATIVE); URINE KETONE NEGATIVE (NEGATIVE); URINE LEUK ESTERASE NEGATIVE (NEGATIVE); URINE NITRITE NEGATIVE (NEGATIVE); URINE PROTEIN 1+ (NEGATIVE); URINE RBC 1 /hpf (0-4); URINE UROBILINOGEN 0.2 mg/dL (0.2-1.0); URINE WBC 1 /hpf (0-5)
[2019-10-15 20:08] LABS: BASO % 0.6 % (0-2.0); EOS % 5.4 % (0-4.5); HEMATOCRIT 35.5 % (32.4-45.2); HEMOGLOBIN 12.1 GM/dL (10.7-15.3); LYMPH % 15.9 % (8-40); MCH 29.4 pg (25.7-33.7); MCHC 34.1 g/dl (32.0-36.0); MEAN PLT VOLUME 8.6 fl (7.5-11.1); MONO % 4.8 % (3.8-10.2); NEUT % 73.3 % (42.8-82.8); PLATELET COUNT 293 K/MM3 (134-434); RBC 4.13 M/mm3 (3.60-5.2); RDW 13.6 % (11.6-15.6); WHITE BLOOD COUNT 8.9 K/mm3 (4.0-10.0)
[2019-10-15 20:42] LABS: ALBUMIN 3.3 g/dl (3.4-5.0); BILIRUBIN,TOTAL 0.2 mg/dL (0.2-1); CREATININE 0.9 mg/dL (0.55-1.3); POTASSIUM 4.2 mmol/L (3.5-5.1); TOT PROT 7.3 g/dl (6.4-8.2)
[2019-10-15] MEDS ORDERED: ACETAMINOPHEN 1000 MG/100 ML VIAL (NON FORMULARY) IVPB ONE (20:55)
[2019-10-15] MEDS ORDERED: Methylnaltrexone Bromide 12 MG/0.6 ML KIT SQ SCH (21:00)
[2019-10-15] MEDS ORDERED: ACETAMINOPHEN INJECTION 100 ML IVPB ONE (21:44)
[2019-10-15] MEDS ORDERED: KETOROLAC TROMETHAMINE 30 MG/1 ML VIAL ONE (22:00)
[2019-10-15] MEDS ORDERED: LIDOCAINE PATCH REMOVAL MC SCH (22:00)
[2019-10-15] MEDS ORDERED: LIDOCAINE 5% TOPICAL PATCH TP ONE (22:11)
--- NOTE | 2019-10-15 22:52 | PDOC ---
*Physical Exam - Vital Signs Last Vital Signs Temp Pulse Resp BP Pulse Ox 98.1 F 113 H 18 123/81 96 10/15/19 13:50 10/15/19 13:50 10/15/19 13:50 10/15/19 13:50 10/15/19 13:50 ED Treatment Course - LABORATORY CBC & Chemistry Diagram: 10/15/19 19:45 10/15/19 19:45 - ADDITIONAL ORDERS Additional order review: Laboratory Results 10/15/19 10/15/19 10/15/19 20:00 19:45 19:45 Sodium 132 L Potassium 4.2 Chloride 96 L Carbon Dioxide 33 H Anion Gap 3 L BUN 20.0 H Creatinine 0.9 Est GFR (CKD-EPI)AfAm 85.80 Est GFR (CKD-EPI)NonAf 74.03 Random Glucose 126 H Lactic Acid 1.7 Calcium 9.0 Total Bilirubin 0.2 AST 9 L ALT 17 Alkaline Phosphatase 208 H Creatine Kinase 102 Troponin I < 0.02 Total Protein 7.3 Albumin 3.3 L Total Amylase 39 Lipase 167 Urine Color Urine Appearance Urine pH Ur Specific [place] Urine Protein Urine Glucose (UA) Urine Ketones Urine Blood Urine Nitrite Urine Bilirubin Urine Urobilinogen Ur Leukocyte Esterase Urine WBC (Auto) Urine RBC (Auto) Urine Casts (Auto) U Epithel Cells (Auto) Urine Bacteria (Auto) 10/15/19 16:00 Sodium Potassium Chloride Carbon Dioxide Anion Gap BUN Creatinine Est GFR (CKD-EPI)AfAm Est GFR (CKD-EPI)NonAf Random Glucose Lactic Acid Calcium Total Bilirubin AST ALT Alkaline Phosphatase Creatine Kinase Troponin I Total Protein Albumin Total Amylase Lipase Urine Color Yellow Urine Appearance Clear Urine pH 6.0 Ur Specific [place] 1.013 Urine Protein 1+ H Urine Glucose (UA) Negative Urine Ketones Negative Urine Blood Trace Urine Nitrite Negative Urine Bilirubin Negative Urine Urobilinogen 0.2 Ur Leukocyte Esterase Negative Urine WBC (Auto) 1 Urine RBC (Auto) 1 Urine Casts (Auto) 1 U Epithel Cells (Auto) 0.8 Urine Bacteria (Auto) 29.1 10/15/19 19:45 RBC 4.13 MCV 86.0 MCHC 34.1 RDW 13.6 MPV 8.6 Neutrophils % 73.3 Lymphocytes % 15.9 D Monocytes % 4.8 Eosinophils % 5.4 H Basophils % 0.6 - Medications Given in the ED: ED Medications Discontinued Medications Generic Name Dose Route Start Last Admin Trade Name Divya PRN Reason Stop Dose Admin Acetaminophen 1,000 mg 10/15/19 20:55 10/15/19 21:58 Ofirmev Injection - IVPB 10/15/19 20:56 Not Given ONCE ONE Lidocaine 1 patch 10/15/19 22:11 10/15/19 22:19 Lidoderm Patch - TP 10/15/19 22:12 Not Given ONCE ONE Ondansetron HCl 4 mg 10/15/19 17:05 10/15/19 17:25 Zofran - PO 10/15/19 17:06 4 mg ONCE ONE Administration Medical Decision Making - Medical Decision Making 10/15/19 22:51 Pt comes with opioid induced constipation. She has abd pain. She was signed out to me Labs pending. 10/15/19 22:52 Labs are normal Pt will be treated with subcutaeneous relistor 10/15/19 23:06 Pt will be sent home; vitals normal and she is feeling better; she will have a BM there 10/16/19 00:37 Pt had a BM here after a fleet; she is demanding morphine and I refused; so she threatened to report me. I said ok. Pt went home with EMS; she is refusing ofirmev Discharge - Discharge Information Problems reviewed: Yes Clinical Impression/Diagnosis: Gas pain Condition: Stable Disposition: HOME - Additional Discharge Information Goals: You were in the hospital because you had constipation and abdominal distention. Your symptoms are likely caused by the fact that your GI system moves too slowly which allows time for stool and gas to build up in your colon. This can be very painful and cause your belly to be distended. Your GI system might move slowly because of your pain medicine or your diabetes. You should follow up with your primary care doctor and your pain management doctor to assess alternative options for pain control and better ways to manage your constipation. If you have worsening abdominal pain, distention, vomiting, or constipation that lasts more than 4 days please return to the emergency department immediately. - Follow up/Referral Referrals: Manolo Jaquez [Primary Care Provider] - 1 week - Patient Discharge Instructions Patient Printed Discharge Instructions: Eating a Diet Rich in Fruits and Vegetables, DI for Constipation, DI for Prescription Opioid Use Additional Instructions: You were in the hospital because you had constipation and abdominal distention. Your symptoms are likely caused by the fact that your GI system moves too slowly which allows time for stool and gas to build up in your colon. This can be very painful and cause your belly to be distended. Your GI system might move slowly because of your pain medicine or your diabetes. You should follow up with your primary care doctor and your pain management doctor to assess alternative options for pain control and better ways to manage your constipation. If you have worsening abdominal pain, distention, vomiting, or constipation that lasts more than 4 days please return to the emergency department immediately. - Post Discharge Activity
[2019-10-15 23:50] VITALS: BP 124/80; PULSE 84; TEMP 98.4
[2019-10-16] MEDS ORDERED: DOCUSATE SODIUM 100 MG CAPSULE (FP) PO SCH (10:00)
== END 2019-10-16 00:26 | disposition home or self-care (01) ==
LOC: JER 13:50
PROC: 3E023GC Introduction of Other Therapeutic Substance into Muscle, Percutaneous Approach (ICD-10-PCS; principal; 2019-10-15)
DX: R14.1 Gas pain (principal); Z88.5 Allergy status to narcotic agent; K59.00 Constipation, unspecified; Z91.018 Allergy to other foods; Z88.6 Allergy status to analgesic agent; D64.9 Anemia, unspecified; J45.909 Unspecified asthma, uncomplicated; J44.9 Chronic obstructive pulmonary disease, unspecified; I10 Essential (primary) hypertension; E78.5 Hyperlipidemia, unspecified; E11.9 Type 2 diabetes mellitus without complications; Z79.4 Long term (current) use of insulin; I48.91 Unspecified atrial fibrillation; Z79.01 Long term (current) use of anticoagulants; E03.9 Hypothyroidism, unspecified; G40.909 Epilepsy, unspecified, not intractable, without status epilepticus; F41.8 Other specified anxiety disorders; F32.9 Major depressive disorder, single episode, unspecified; M54.89 Other dorsalgia; G89.29 Other chronic pain; Z86.73 Personal history of transient ischemic attack (TIA), and cerebral infarction without residual deficits; Z85.42 Personal history of malignant neoplasm of other parts of uterus; Z90.710 Acquired absence of both cervix and uterus; Z87.39 Personal history of other diseases of the musculoskeletal system and connective tissue; Z90.49 Acquired absence of other specified parts of digestive tract; Z99.81 Dependence on supplemental oxygen
CPT/HCPCS: 36415; 74019-TC-FY; 80053; 81003; 82150; 82550; 82962; 83605; 83690; 84484; 85025; 87086; 99283-25